=== PATIENT | female | born 1970 | race Caucasian/White ===

== ENCOUNTER 2016-11-09 06:50 | Inpatient (IN) | payer OTHER ==
[2016-11-09] MEDS ORDERED: SODIUM CHLORIDE 3,000 ML IV STA (06:53)
--- NOTE | 2016-11-09 07:05 | PDOC ---
Attending Attestation - Resident Resident Name: Hai Guerrero - ED Attending Attestation I have performed the following: I have examined & evaluated the patient, The case was reviewed & discussed with the resident, I agree w/resident's findings & plan, Exceptions are as noted - HPI HPI: 11/09/16 07:03 The patient is a 46-year-old female with a significant past medical history of type 1 diabetes (multiple admissions for DKA secondary to medical noncompliance) , chronic back pain secondary to lumbar disc disease (on opiate analgesics), cigarette smoking, who presents to the emergency department complaining of generalized weakness, dry cough, nausea and vomiting, for the past several days. She told EMS that she has not taken her insulin for almost a week. She states that she "took pain pills" before she came here secondary to her chronic back pain. She reports that she took 2 tablets, but is unable to tell me the name of them. 11/09/16 07:39 - Physicial Exam PE: 11/09/16 07:04 Patient is lethargic, but responds to verbal stimuli and answers questions appropriately She follows commands Vitals noted including hypothermia, tachycardia, tachypnea Mucous membranes are dry Abdomen is soft and nontender Lungs with RML crackles Extremities are warm and well perfused 11/09/16 07:15 11/09/16 07:22 Chest x-ray noted with significant infiltrative changes in the right mid and right upper lung mclaughlin 11/09/16 07:26 11/09/16 08:03 11/09/16 08:54 - Critical Care Time Total Critical Care Time: 90 Critical Care Statement: The care of this patient involved high complexity decision making to prevent further life threatening deterioration of the patient 's condition and/or to evalute & treat vital organ system(s) failure or risk of failure. - Medical Decision Making 11/09/16 07:04 The patient is ill-appearing and in moderate respiratory distress I suspect diabetic ketoacidosis Monitor shows an irregulary irregular tachycardia with P waves I suspect tachypnea is respiratory compensation for a severe metabolic acidosis I suspect tachycardia is secondary to severe volume depletion She does have 3 SIRS criteria She has been coughing and had RML crackles on exam Will initiate sepsis order set Will begin aggressive volume repletion Will not administer insulin until potassium level returns as I suspect she will be relatively hypokalemic 11/09/16 07:15 EKG noted: sinus tachycardia with frequent PACs, inverted T waves in leads 3 and AVF, peaked T waves in V2-V4, no ST changes, QTc is prolonged EKG changes are not classic for hyperkalemia though she does have peaked T waves I continue to suspect hypokalemia and will not yet begin insulin therapy 11/09/16 07:24 CXR noted, consistent with pneumonia She meets diagnostic criteria for severe sepsis given mental status changes Will treat with Ceftriaxone, Doxycycline for community acquired coverage, avoiding macrolides and fluoroquinolones secondary to the QTc prolongation 11/09/16 07:27 I have requested expedited lab transfer to [facility] 11/09/16 07:48 The patient has received 1 L of IV fluid Labs are pending Mental status is improved Tachypnea is unchanged She is slightly more tachycardic Nurses have been unable to place a second IV Will place central venous catheter The patient refuses placement in the internal jugular vein or subclavian vein She consents to placement in the femoral vein 11/09/16 07:55 Lab at [facility] has not yet received specimen They are aware that we need stat results Femoral line placed in the right femoral vein Vein cannulated on first attempt 11/09/16 08:09 [facility] lab has received specimen and will run it stat Admitting hospitalist (Dr. Camacho) accepts the patient pending lab results I have paged the simulation software engineer She is slightly more responsive but remains very tachycardic 11/09/16 08:16 ABG noted With pH greater than 6.9 will not give bicarbonate unless she is in GIANCARLO with low serum bicarbonate K pending 11/09/16 08:23 She remains tachycardic in the 170s-180s It looks like sinus tachycardia on the monitor Will repeat EKG She has received 2L of NS Will administer a third K pending I called the chemistry lab at [facility] They will expedite the chemistry specimen and understand the need for STAT results 11/09/16 08:27 Repeat EKG with sinus tachycardia 11/09/16 08:36 Per chemistry lab, specimen is hemolyzed They WILL run lactic acid Sending new specimen to [facility] lab STAT I called the lab and asked them to expedite the specimen I remain concerned for possible hypokalemia and will therefore wait for K before beginning insulin 3rd liter of NS running 11/09/16 08:45 I called the chemistry lab at [facility] Lactic acid pending They confirm that it is running 11/09/16 08:50 CBC noted with possible cold agglutins Doxycycline should cover mycoplasma species Chemistries remain pending She is less lethagic She is slightly less tachycardic She is making urine Will continue to await K before beginning insulin therapy 11/09/16 08:54 11/09/16 09:07 Chemistries remain pending Lactic acid remains pending Both the [facility] and [facility] labs are aware of the need to expedite the results The patient is clinically improved 11/09/16 09:15 Lactic acid of 6.4 noted Chemistries pending The patient's oxygen saturation is in the mid 80s Will apply Ventimask She may require intubation Clinical impression: Diabetic ketoacidosis Severe sepsis Lactic acidosis Hypoxemia respiratory failure Prolonged QT Case discussed in detail with admitting provider including history, physical exam and ancillary studies. Admitting physician has assumed care for the patient, will follow all pending diagnostics and will complete the evaluation and treatment. 11/09/16 09:22 Preliminary chemistries noted including Hyponatremia, which I presume is largely dilutional Glucose pending Potassium 5.8 Creatinine 3.3 Bicarb pending Gap pending Will administer 10 units IV Regular Insulin as a bolus, given the extent of her illness Will then begin insolent drip at 0.1 units per kilogram per hour Oxygen saturations are now in the mid 70s Plan is adequate She is in hypoxemic respiratory failure Will intubate 11/09/16 09:37 Patient was intubated using rapid sequence intubation protocol Etomidate 20 mg, rocuronium 50 mg Succinylcholine was avoided secondary to her hyperkalemia We are consciously hyperventilating her postintubation to provide adequate respiratory compensation for her severe metabolic acidosis Will repeat ABG in 30 minutes I requested stat transfer to the [facility] ICU 11/09/16 09:38 11/09/16 09:40 11/09/16 09:45 She is tolerating the vent well Insulin drip hanging Versed drip hanging IVF running Repeat CXR at bedside I anticipate obtaining an ABG 30 minutes post-intubation to ensure adequate ventilation / respiratory compensation It will have to go to [facility] for development WBC still pending I have asked the hematology lab to expedite the results Bicarb, anion gap and glucose pending I have asked the lab to expedite the results 11/09/16 09:53 Glucose of 1135 noted Corrected Na is 143 Bicarbonate less than 5 Anion Gap 35, adjusted for hypoalbiminemia it is approximately 37.5 Using a serume bicarbonate of 5 and an anion gap of 37.5 Delta delta is 32.5, indicating a concurrent metabolic alkalosis I presume this is a combination of contraction alkalosis plus vomiting with H loss Maradiaga formula projects a corrected C02 of 13.5-17.5 She has a concurrent respiratory acidosis I presume this is secondary to pneumonia, perhaps with a component of hypoventillation from opiate use She has a triple acid base disorder Primary and gap acidosis (mixed diabetic ketoacidosis, lactic acidosis, uremia) Metabolic alkalosis (volume depletion, vomiting) Respiratory acidosis (pneumonia, hypoventilation secondary to opiate use) Admitting physician has assumed care for the patient, will follow all pending diagnostics and will complete the evaluation and treatment. 11/09/16 10:03 Chest x-ray emergency Department interpretation: Endotracheal tube tip at aortic arch As compared to prior chest x-ray, there is evidence of diffuse interstitial infiltrates, with a right sided predominance This could be consistent with multi lobar pneumonia, pulmonary vascular congestion, ARDS She will require further evaluation further evaluation with TTE to exclude RV dysfunction Will add BNP She should get Vanco Clinical impression: Diabetic ketoacidosis Severe sepsis Community acquired pneumonia (multilobar) Possible early ARDS Anion gap acidosis (mixed diabetic ketoacidosis, lactic acidosis, uremic acidosis) Metabolic alkalosis (volume depletion, vomiting) Respiratory acidosis (pneumonia, hypoventilation secondary to opiate use) Hypoxemic respiratory failure Prolonged QT GIANCARLO Case discussed in detail with admitting provider including history, physical exam and ancillary studies. 11/09/16 10:18 EMS is at the bedisde Will administer Versed 5mg IV now to ensure sedation during transport Dosing with Vancomycin 1gm given multilobar pneumonia in the setting of severe illness ABG was drawn Repeating chemistries now Repeat lactic acid pending She is making urine with 1500ml in the perez bag WBC reported -- 28.8 with 23% bands 11/09/16 10:23 11/09/16 10:28 11/09/16 10:28 Discharge Disposition - Diagnosis DKA (diabetic ketoacidoses) - Discharge Dispostion Condition at time of disposition: Guarded Admit: Yes - Referrals Referrals: Pa Heard MD [Primary Care Provider] - Procedures - Central Line Central Line Lumen: triple Central Line Position: femoral (R) Complications: none Post Central Line Insertion: sutured, good blood return - Intubation Time of Intubation: 09:30 Blade used: Mac Tube Size (Fr): 7.5 Medications: Etomidate, Rocuronium Tube position @ lip (cm): 21 Tube position confirmed by: Direct visualization, CO2 detector, Chest x-ray, Breath sounds Breath Sounds after Intubation: equal Intubation Complications: no complications Post Intubation Xray: Yes
[2016-11-09] MEDS ORDERED: DOXYCYCLINE INJECTION 100 MG in DEXTROSE 5%-WATER - 100 ML IVPB ONE (07:21)
[2016-11-09] MEDS ORDERED: CEFTRIAXONE 1 GM in DEXTROSE 5%-WATER - 50 ML IVPB ONE (07:21)
[2016-11-09 07:25] VITALS: BMI 19.7
[2016-11-09 08:13] LABS: VENOUS BLOOD GAS HCO3 4.2 meq/L (19-25); VENOUS PH 6.94 (7.32-7.42)
[2016-11-09] MEDS ORDERED: SODIUM CHLORIDE 1,000 ML IV STA (08:29)
--- NOTE | 2016-11-09 08:39 | PDOC ---
History of Present Illness - General Chief Complaint: Blood Sugar Problem Stated Complaint: NAUSEA/VOMITING Time Seen by Provider: 11/09/16 06:53 History Source: Patient Exam Limitations: Clinical Condition - History of Present Illness Initial Comments: 46 y/o F w/ PMH of IDDM with multiple admissions for DKA from non-compliance, back pain with opiate use for pain relief, smoker presents to ER with c/o weakness, nausea, vomiting, and cough for last few days. According to EMS pt has not been complaint with her insulin use for approximately 1 week. Pt has altered mental status at this time and further history is difficult to obtain. Past History - Past Medical History Allergies/Adverse Reactions: Allergies Allergy/AdvReac Type Severity Reaction Status Date / Time No Known Allergies Allergy Verified 03/26/15 16:45 Home Medications: Ambulatory Orders Morphine Sulfate [Ms Contin] 120 mg PO BID 06/20/15 Oxycodone HCl/Acetaminophen [Percocet 10-325 mg Tablet] 1 - 2 tab PO Q6H Insulin (Levemir) [Levemir Vial] 20 unit SQ HS #30 ml 12/07/15 Insulin Sliding Scale [Novolog Vial Sliding Scale -] See Protocol SQ AC 30 Days 12/07/15 Insulin Sliding Scale [Novolog Vial Sliding Scale -] See Protocol SQ AC 30 Days 12/07/15 Metoclopramide HCl [Reglan] 10 mg PO TID PRN #90 tablet 12/07/15 Diabetes: Yes (TYPE I) GI Disorders: Yes (GASTROPARESIS) Suicide Attempt (Hx): No - Surgical History Cholecystectomy: Yes (AGE 19) - Immunization History Td Vaccination: Yes Immunization Up to Date: Yes - Psycho/Social/Smoking Cessation Hx Anxiety: No Suicidal Ideation: No Smoking Status: Yes Smoking History: Unknown if ever smoked Years of Tobacco Use: 15 Have you smoked in the past 12 months: Yes Number of Cigarettes Smoked Daily: 20 Information on smoking cessation initiated: No 'Breaking Loose' booklet given: 12/03/15 Hx Alcohol Use: No Drug/Substance Use Hx: Yes Substance Use Type: Prescribed Hx Substance Use Treatment: No Review of Systems - Review of Systems Able to Perform ROS?: No (Pt w/AMS) *Physical Exam - Vital Signs Last Vital Signs Temp Pulse Resp BP Pulse Ox 95.4 F L 169 H 27 H 100/80 89 L 11/09/16 07:20 11/09/16 08:19 11/09/16 08:19 11/09/16 08:19 11/09/16 08:03 - Physical Exam Comments: GENERAL: Well developed, well nourished. Pt with respiratory distress and altered mental status. HEENT: Sluggish response to constriction of pupils with direct light. Normocephalic, atraumatic. Sclera are non-icteric. Moist mucous membranes. NECK: No lymphadenopathy. CARDIOVASCULAR: Irregularly irregular, tachycardic. No murmurs, rubs, or gallops. PULMONARY: Tachypneic, labored, kussmaul breathing. CTA anteriorly. ABDOMINAL: Hypoactive bowel sounds. Soft. Non-distended. No rebound or guarding. No organomegaly. MUSCULOSKELETAL: No bony deformities. EXTREMITIES: No edema. No calf tenderness. SKIN: No rashes. No jaundice. NEUROLOGICAL: Altered mental status, obtunded. Difficulty with speaking due to mental status. PSYCHIATRIC: Altered mental status. Heart Score/ECG Review - Bailey Comment: 11/09/16 07:25 EKG: Sinus tachy with PACs. No ST changes noted. Prolonged QTc 11/09/16 08:45 EKG: Sinus tachy with PACs. No ST changes noted again. Prolonged QTc. ED Treatment Course - LABORATORY CBC & Chemistry Diagram: 11/09/16 06:54 11/09/16 08:51 - ADDITIONAL ORDERS Additional order review: Laboratory Results 11/09/16 06:54 VBG pH 6.94 L* D POC VBG pCO2 20.6 L D POC VBG pO2 53.7 H Mixed VBG HCO3 4.2 L* - Medications Given in the ED: ED Medications Discontinued Medications Generic Name Dose Route Start Last Admin Trade Name Freq PRN Reason Stop Dose Admin Ceftriaxone Sodium 1 gm/ 50 mls @ 100 mls/hr 11/09/16 07:21 11/09/16 07:55 Dextrose IVPB 11/09/16 07:50 100 mls/hr ONCE ONE Administration Doxycycline Hyclate 100 mg/ 100 mls @ 100 mls/hr 11/09/16 07:21 11/09/16 08:16 Dextrose IVPB 11/09/16 08:20 100 mls/hr ONCE ONE Administration Medical Decision Making - Medical Decision Making Pt likely with to have DKA due to non-compliance with insulin therapy. EKG shows sinus tachy with PACs and no ST changes noted. CXR shows R sided infiltrate. Labs sent but were hemolyzed on the way to [facility]. Will redraw, awaiting lab results. Pt fluid bolused with some mental status improvement. Pt to also receive ceftriaxone and doxy for CAP with QTc prolongation. Central line placed through femoral and pt continues to be tachy. Pt to be admitted to ICU. Hospitalist paged and accepted for admission. Twister Tender Paper paged and accepted for ICU. Pt remains tachypneic and will require intubation. Pt intubated. Pt so far has received 3L fluids. Sedated w/versed and intubated on ventilator. 11/09/16 10:20 Repeat CXR s/p intubation shows tip of ET tube at level of aortic arch. Worsening of infiltrates on B/L lungs. Vanco added. 11/09/16 10:29 WBC back at 28.8 *DC/Admit/Observation/Transfer Diagnosis at time of Disposition: DKA (diabetic ketoacidoses) - Discharge Dispostion Condition at time of disposition: Guarded - Referrals Referrals: Pa Heard MD [Primary Care Provider] - - Patient Instructions - Post Discharge Activity
[2016-11-09 08:58] LABS: ACTIVATED PTT 26.6 SECONDS (26.9-34.4); INR 1.07 (0.82-1.09); PROTHROMBIN TIME (PATIENT) 11.8 SEC (9.98-11.88)
[2016-11-09 09:14] LABS: COCKROFT - GAULT 17.3485; CREATININE 3.3 mg/dl (0.6-1.3)
[2016-11-09 09:15] LABS: MCHC 27.9 g/dl (32.0-36.0); MEAN CELL VOLUME 111.2 fl (80-96); MEAN PLT VOLUME 9.4 fl (7.5-11.1); PLATELET COUNT 367 K/MM3 (134-434); RDW 15.6 % (11.6-15.6)
[2016-11-09 09:16] LABS: ALBUMIN 2.8 g/dl (3.5-5.0); ALK PHOS 111 U/L (32-92); MAGNESIUM 2.1 mg/dL (1.8-2.4); SGOT/AST 85 U/L (10-42); SGPT/ALT 20 U/L (10-40)
[2016-11-09 09:18] LABS: CPK(DFH) 118 IU/L (26-140)
[2016-11-09] MEDS ORDERED: INSULIN REGULAR HUMAN 100 UNITS/ML *VIAL IV ONE (09:20)
[2016-11-09] MEDS ORDERED: ETOMIDATE 20 MG/10 ML AMPUL IVPUSH ONE (09:23)
[2016-11-09] MEDS ORDERED: ROCURONIUM BROMIDE 50 MG/5 ML VIAL IVPUSH ONE (09:23)
[2016-11-09] MEDS ORDERED: INSULIN REGULAR HUMAN 100 UNITS/ML *VIAL ONE ×2 (09:24→09:44)
[2016-11-09 09:25] LABS: TROPONIN I (DFP) < 0.03 ng/ml (0.03-0.50)
[2016-11-09] MEDS ORDERED: ROCURONIUM BROMIDE 50 MG/5 ML VIAL ONE (09:26)
[2016-11-09] MEDS ORDERED: ETOMIDATE 40 MG/20 ML VIAL IVPUSH ONE (09:28)
[2016-11-09 09:35] LABS: ACETONE SERUM POSITIVE (NEGATIVE)
[2016-11-09] MEDS ORDERED: PROPOFOL 0 ML ONE (09:36)
[2016-11-09] MEDS ORDERED: MIDAZOLAM HCL 2 MG/2 ML SINGLE DOSE VIAL ONE ×2 (09:37→10:32)
[2016-11-09 09:52] LABS: ANION GAP 35 (8-16); CO2 < 5 mmol/L (22-28)
[2016-11-09 09:54] LABS: GLUCOSE,RANDOM 1135 mg/dl (74-106); PHOSPHOROUS 10.5 mg/dl (2.5-4.6)
[2016-11-09] MEDS: MIDAZOLAM 100 MG in SODIUM CHLORIDE 100 ML IVPB SCH ×2 (09:54→11:50)
[2016-11-09] MEDS: INSULIN REGULAR 100 UNITS in SODIUM CHLORIDE 99 ML IVPB SCH (10:00)
[2016-11-09] MEDS ORDERED: MIDAZOLAM HCL 5 MG/1 ML Single Dose Vial IVPUSH ONE (10:13)
[2016-11-09] MEDS ORDERED: VANCOMYCIN 1,000 MG in DEXTROSE 5%-WATER - 250 ML IVPB ONE (10:17)
[2016-11-09 10:22] LABS: URINE MARIJUANA THC POSITIVE ng/ml (CUTOFF=50)
[2016-11-09 10:23] LABS: WHITE BLOOD COUNT 28.8 K/mm3 (4.0-10.0)
[2016-11-09 10:24] LABS: PLATELET ESTIMATE ADEQUATE (NORMAL)
[2016-11-09] MEDS ORDERED: VANCOMYCIN 1,000 MG VIAL (RESTRICTED TO ID ONLY) ONE (10:25)
[2016-11-09 11:08] LABS: COCKROFT - GAULT 20.451; CREATININE 2.8 mg/dl (0.6-1.3)
[2016-11-09 11:23] LABS: ARTERIAL BLD GAS O2 SATURATION 91.6 % (90-98.9); ARTERIAL BLOOD GAS BASE EXCESS -28.4 meq/l (-2-2); LPM/O2% 100; MECH. VENT. 7200; PT. ON O2? YES; TYPE OF O2 MEC.VENT; VENT RATE 30; VT/PRESS 500
[2016-11-09 11:25] LABS: CALCIUM 6.3 mg/dl (8.4-10.2)
[2016-11-09 11:25] LABS: ARTERIAL BLOOD GAS pH 6.85 (7.35-7.45)
[2016-11-09 11:26] LABS: ARTERIAL BLOOD GAS HCO3 4.6 meq/L (22-26); ARTERIAL BLOOD GAS PO2 107 mmHg (80-100)
[2016-11-09] MEDS ORDERED: SODIUM BICARBONATE 8.4% - 100 ML ONE (11:31)
[2016-11-09] MEDS ORDERED: SODIUM BICARBONATE 8.4% 50 MEQ/50 ML VIAL IV ONE (11:46)
[2016-11-09] MEDS ORDERED: ROCURONIUM BROMIDE 50 MG/5 ML VIAL IV ONE (11:47)
[2016-11-09 12:00] LABS: ARTERIAL BLOOD GAS BASE EXCESS -20.8 meq/l (-2-2)
[2016-11-09] MEDS: SODIUM CHLORIDE 1,000 ML IV SCH (12:00)
[2016-11-09 12:01] LABS: ALLENS TEST POSITIVE
[2016-11-09 12:02] LABS: ART PUNCT SITE LEFT RADIAL; LPM/O2% 70%; MECH. VENT. ESPRIT; PT. ON O2? YES; TYPE OF O2 MEC.VENT; VENT RATE 30; VT/PRESS 500
[2016-11-09 12:03] LABS: ARTERIAL BLOOD GAS HCO3 9.2 meq/L (22-26)
[2016-11-09 12:04] LABS: ARTERIAL BLOOD GAS pH 7.03 (7.35-7.45)
[2016-11-09 12:32] LABS: BASOPHIL 0.4 % (0-2.0); EOSINOPHIL 0.2 % (0-4.5); MCH 31.3 pg (25.7-33.7); MCHC 31.7 g/dl (32.0-36.0); MEAN CELL VOLUME 98.5 fl (80-96); MEAN PLT VOLUME 8.3 fl (7.5-11.1); NEUTROPHILS 89.6 % (42.8-82.8); PLATELET COUNT 255 K/MM3 (134-434); RDW 14.4 % (11.6-15.6); WHITE BLOOD COUNT 21.7 K/mm3 (4.0-10.0)
[2016-11-09 12:54] LABS: COCKROFT - GAULT 24.8965; CREATININE 2.3 mg/dL (0.55-1.02)
[2016-11-09 12:57] LABS: TROPONIN I < 0.02 ng/ml (0.00-0.05)
[2016-11-09] MEDS: HEPARIN NA (PORCINE) 5,000 UNITS/ML 1ML VIAL SQ SCH ×2 (13:00→21:40)
[2016-11-09] MEDS ORDERED: PIPERACILLIN/TAZOB 4.5 GM/100 ML PRE-DOCKED IVPB ONE (13:45)
--- NOTE | 2016-11-09 13:51 | HP ---
CHIEF COMPLAINT: vomiting and cough for a few days PCP: Pa Heard HISTORY OF PRESENT ILLNESS: 46 y/o female with hx of IDDM, poor compliance with insulin, multiple admissions for DKA, gastroparesis. Patient presented to the [facility] ED this am with a chief complaint of a few days of nausea, vomiting and cough. She stated she had not been taking insulin for 1 week. She denied fever, and had no abdominal pain. She was somewhat lethargic and was found to be in severe DKA, mixed severe metabolic acidosis with positive ketones and positive lactate 6. Her glucose was greater than 1000. Chest xray was notable for right mid lung infiltrate/pnemonia. WBC was severely elevated. In the ED, she received volume resuscitation with 3.5 liters of normal saline, insulin bolus of 10 units with drip at 5 units per hour. She was started on ceftriaxone, doxycycline and vancomycin for pneumonia in the setting of critical illness. She developed progressive respiratory distress and was intubated with RSI regimen etomidate and rocuronium. CXR confirmed ETT in good position and further demonstrated marked progression of pulmonary infiltrates, now involving the right mid and upper lung mclaughlin along with the left mid lung field. She required 100% oxygen to maintain sats in the low 90's. On arrival to the MICU she was sedated on midazolam, continued insulin drip, adjusted from 5 to 6 units per hr (0.1 U/kg) still with some gasping motions and accessory muscle use, not responsive to sternal rub. pH on ABG just prior to transfer was worsening to 6.85. Patient was immediately paralyzed with Rocuronium to reduce muscle lactate production, 2 amps of IV bicarb given, RR 30 with 500 cc tidal volume to blow off CO2, PEEP increased to 7 with sats up to 100% and FiO2 reduced to 70% with sats in the high 90's. Patient was completing 4th liter of normal saline and saline continued at 150 ml per hour. Recent Travel: unknown (metabolic encephalopathy) PAST MEDICAL HISTORY: DM gastroparesis multiple admissions for DKA chronic back pain on opiates PAST SURGICAL HISTORY: none Social History: Smoking:positive Alcohol:unobtainable Drugs:hx of chronic prescribed opioids for back pain Family History: unknown Allergies No Known Allergies Allergy (Verified 03/26/15 16:45) HOME MEDICATIONS: Home Medications Medication Instructions Recorded Morphine Sulfate [Ms Contin] 120 mg PO BID 06/20/15 Oxycodone HCl/Acetaminophen 1 - 2 tab PO Q6H 06/20/15 [Percocet 10-325 mg Tablet] Insulin (Levemir) [Levemir Vial] 20 unit SQ HS #30 ml 12/07/15 Insulin Sliding Scale [Novolog See Protocol SQ AC 30 Days 12/07/15 Vial Sliding Scale -] Insulin Sliding Scale [Novolog See Protocol SQ AC 30 Days 12/07/15 Vial Sliding Scale -] Metoclopramide HCl [Reglan] 10 mg PO TID PRN #90 tablet 12/07/15 REVIEW OF SYSTEMS unobtainable due to critical illness I spoke with her father who is in [place], he is coming back to [place] now that he is aware of her critical illness PHYSICAL EXAMINATION Vital Signs - 24 hr 11/09/16 11:55 Respiratory 30 H Rate GENERAL: Intubated, sedated, on versed and fentanyl drip, got stat dose of rocuronium x1 HEAD: Normal with no signs of trauma. EYES: Pupils 3mm, equal, round and reactive to light, sclera anicteric, conjunctiva clear. EARS, NOSE, THROAT: Ears normal, nares patent, oropharynx clear without lesions. Membranes not dry. NECK: Normal range of motion, supple without lymphadenopathy, JVD, or masses. LUNGS: Breath sounds equal, some coarse crackles bilaterally. Positive accessory muscle use prior to rocuronium, now resolved. HEART: Tacchycardic. Regular rate and rhythm, normal S1 and S2 without murmur, rub or gallop. ABDOMEN: Soft, nontender, not distended, normoactive bowel sounds, no guarding, no rebound, no masses. No hepatomegaly or splenomegaly. MUSCULOSKELETAL: Normal range of motion at all joints. No bony deformities or tenderness. No CVA tenderness. UPPER EXTREMITIES: 2+ pulses, warm, well-perfused. No cyanosis. No clubbing. No peripheral edema. LOWER EXTREMITIES: 2+ pulses, warm, well-perfused. No calf tenderness. No peripheral edema. Cap refill in the toes is 3 seconds. NEUROLOGICAL: Sedated, transiently opened eyes and made eye contact prior to increasing the versed sedation and adding fentanyl and rocuronium x1. PSYCHIATRIC: sedated, not assessable, but was reportedly cooperative with mild lethargy on initial ED presentatin. SKIN: Warm, dry, normal turgor, no rashes or lesions noted. Laboratory Results - last 24 hr 11/09/16 11/09/16 11/09/16 06:54 06:54 06:54 WBC 28.8 H D RBC 4.09 Hgb 12.7 D Hct 45.5 H D MCV 111.2 H D MCHC 27.9 L RDW 15.6 Plt Count 367 D MPV 9.4 D Neutrophils % 71.0 Lymphocytes % 5.0 L D Monocytes % 0.0 L D Eosinophils % 0.0 D Basophils % 0.0 Band Neutrophils 23.0 H D Differential Comment Manual diff done Platelet Estimate Adequate Platelet Comment Mod large plts Macrocytosis 1+ INR 1.07 PTT (Actin FS) 26.6 L Anticoagulation Therapy Puncture Site ABG pH ABG pCO2 at Pt Temp ABG pO2 at Pt Temp ABG HCO3 ABG O2 Sat (Measured) ABG O2 Content ABG Base Excess Atul Test VBG pH 6.94 L* D POC VBG pCO2 20.6 L D POC VBG pO2 53.7 H Mixed VBG HCO3 4.2 L* O2 Delivery Device Oxygen Flow Rate Vent Mode Vent Rate Mechanical Rate PEEP Pressure Support Vent Sodium Potassium Chloride Carbon Dioxide Anion Gap BUN Creatinine Creat Clearance w eGFR Random Glucose Lactic Acid Calcium Phosphorus Magnesium Total Bilirubin AST ALT Alkaline Phosphatase Creatine Kinase Troponin I Total Protein Albumin Opiates Screen Methadone Screen Barbiturate Screen Phencyclidine Screen Ur Amphetamines Screen MDMA (Ecstasy) Screen Benzodiazepines Screen Cocaine Screen U Marijuana (THC) Screen Acetone, Qual 11/09/16 11/09/16 11/09/16 06:54 07:57 08:34 WBC RBC Hgb Hct MCV MCHC RDW Plt Count MPV Neutrophils % Lymphocytes % Monocytes % Eosinophils % Basophils % Band Neutrophils Differential Comment Platelet Estimate Platelet Comment Macrocytosis INR PTT (Actin FS) Anticoagulation Therapy Puncture Site ABG pH ABG pCO2 at Pt Temp ABG pO2 at Pt Temp ABG HCO3 ABG O2 Sat (Measured) ABG O2 Content ABG Base Excess Atul Test VBG pH POC VBG pCO2 POC VBG pO2 Mixed VBG HCO3 O2 Delivery Device Oxygen Flow Rate Vent Mode Vent Rate Mechanical Rate PEEP Pressure Support Vent Sodium Potassium Chloride Carbon Dioxide Anion Gap BUN Creatinine Creat Clearance w eGFR Random Glucose Lactic Acid 6.461 H* Calcium Phosphorus Magnesium Total Bilirubin AST ALT Alkaline Phosphatase Creatine Kinase 118 Troponin I < 0.03 L Total Protein Albumin Opiates Screen Positive Methadone Screen Negative Barbiturate Screen Negative Phencyclidine Screen Negative Ur Amphetamines Screen Negative MDMA (Ecstasy) Screen Negative Benzodiazepines Screen Negative Cocaine Screen Negative U Marijuana (THC) Screen Positive Acetone, Qual 11/09/16 11/09/16 11/09/16 08:51 08:51 10:23 WBC RBC Hgb Hct MCV MCHC RDW Plt Count MPV Neutrophils % Lymphocytes % Monocytes % Eosinophils % Basophils % Band Neutrophils Differential Comment Platelet Estimate Platelet Comment Macrocytosis INR PTT (Actin FS) Anticoagulation Therapy Puncture Site ABG pH ABG pCO2 at Pt Temp ABG pO2 at Pt Temp ABG HCO3 ABG O2 Sat (Measured) ABG O2 Content ABG Base Excess Atul Test VBG pH POC VBG pCO2 POC VBG pO2 Mixed VBG HCO3 O2 Delivery Device Oxygen Flow Rate Vent Mode Vent Rate Mechanical Rate PEEP Pressure Support Vent Sodium 118 L* D 126 L Potassium 5.8 H D 4.8 Chloride 78 L D 95 L D Carbon Dioxide < 5 L D 5 L Anion Gap 35 H 26 H BUN 62 H D 56 H Creatinine 3.3 H D 2.8 H Creat Clearance w eGFR 14.98 Random Glucose 1135 H* 1045 H* Lactic Acid 4.569 H* Calcium 7.0 L D 6.3 L* Phosphorus 10.5 H* D Magnesium 2.1 Total Bilirubin 3.0 H D AST 85 H D ALT 20 D Alkaline Phosphatase 111 H D Creatine Kinase Troponin I Total Protein 5.0 L D Albumin 2.8 L D Opiates Screen Methadone Screen Barbiturate Screen Phencyclidine Screen Ur Amphetamines Screen MDMA (Ecstasy) Screen Benzodiazepines Screen Cocaine Screen U Marijuana (THC) Screen Acetone, Qual Positive 11/09/16 11/09/16 11/09/16 10:46 11:50 12:00 WBC 21.7 H RBC 3.74 Hgb 11.7 Hct 36.8 D MCV 98.5 H MCHC 31.7 L RDW 14.4 Plt Count 255 D MPV 8.3 D Neutrophils % 89.6 H D Lymphocytes % 7.6 L D Monocytes % 2.2 L D Eosinophils % 0.2 D Basophils % 0.4 D Band Neutrophils Differential Comment Platelet Estimate Platelet Comment Macrocytosis INR PTT (Actin FS) Anticoagulation Therapy Y Puncture Site Md puncture Left radial ABG pH 6.85 L* 7.03 L* D ABG pCO2 at Pt Temp 28.0 L D 36.1 ABG pO2 at Pt Temp 107 H 82.0 D ABG HCO3 4.6 L* 9.2 L* ABG O2 Sat (Measured) 91.6 91.0 ABG O2 Content 14.8 L 14.6 L ABG Base Excess -28.4 L* -20.8 L* Atul Test Not applicable Positive VBG pH POC VBG pCO2 POC VBG pO2 Mixed VBG HCO3 O2 Delivery Device Mec.vent Mec.vent Oxygen Flow Rate 100 70% Vent Mode A/c A/c Vent Rate 30 30 Mechanical Rate 7200 Esprit PEEP 0.0 7.0 Pressure Support Vent 500 500 Sodium Potassium Chloride Carbon Dioxide Anion Gap BUN Creatinine Creat Clearance w eGFR Random Glucose Lactic Acid Calcium Phosphorus Magnesium Total Bilirubin AST ALT Alkaline Phosphatase Creatine Kinase Troponin I Total Protein Albumin Opiates Screen Methadone Screen Barbiturate Screen Phencyclidine Screen Ur Amphetamines Screen MDMA (Ecstasy) Screen Benzodiazepines Screen Cocaine Screen U Marijuana (THC) Screen Acetone, Qual Laboratory Results - last 24 hr 11/09/16 11/09/16 11:50 12:00 WBC 21.7 H RBC 3.74 Hgb 11.7 Hct 36.8 D MCV 98.5 H MCHC 31.7 L RDW 14.4 Plt Count 255 D MPV 8.3 D Neutrophils % 89.6 H D Lymphocytes % 7.6 L D Monocytes % 2.2 L D Eosinophils % 0.2 D Basophils % 0.4 D Puncture Site Left radial ABG pH 7.03 L* D ABG pCO2 at Pt Temp 36.1 ABG pO2 at Pt Temp 82.0 D ABG HCO3 9.2 L* ABG O2 Sat (Measured) 91.0 ABG O2 Content 14.6 L ABG Base Excess -20.8 L* Atul Test Positive O2 Delivery Device Mec.vent Oxygen Flow Rate 70% Vent Mode A/c Vent Rate 30 Mechanical Rate Esprit PEEP 7.0 Pressure Support Vent 500 ASSESSMENT/PLAN: 46 y/o woman presents with severe hyperosmolar state and DKA secondary to noncompliance with insulin as well as from sepsis and pneumonia with acute hypoxemic respiratory failure, severe ARDS. Critical Care consult Dr. Galicia is aware, at bedside in the ICU with me. CV: patient transiently hypotensive, likely severe volume depletion in the setting of vomiting and osmotic diuresis from hyperosmolar state. She is getting her 5th liter bolus, but hypoxemia is getting worse in the setting of volume resuscitation. Acidosis is a bit better after initially trending worse and this may be contributing. continue volume resuscitation may need pressors depending on course, would start with norepinephrine if needed Pulmonary: multilobar pneumonia, progressive pulmonary infiltrates, acute hypoxemic respiratory failure, severe Aa gradient, P/F ratio is currently 117 but trending worse, consistent with moderate to severe ARDS. [place] low tidal volume for 5' 6" is 350 ml at 6 ml/kg, however, given her severe metabolic acidosis I cannot get her to ideal tidal volume until her acidosis improves. Will continue PEEP as tolerated, did not tolerate PEEP 10 as she dropped her BP. Neuro: metablic encephalopathy in the setting of DKA and metabolic disarray along with hyperosmolar state. Intubated and sedated, requiring both versed at 4mg/h and fentanyl at 100ug/h to maintain adequate sedation, received rocuronium bolus for dysynchronous breathing in the setting of severe acidosis. Sedation increased and will reassess need for further paralysis once settled on increased sedation. Renal: good urine output, GIANCARLO with creatinine coming down now with volume resuscitation. HyperKalemia on initial labs now improving, continue to monitor q4h. ID: multilobar pneumonia with critical illness and hypoxemic respiratory failure continue antibiotics for increased risk of nosocomial pneumonia given frequent illness and hospitalization radha jewell vanco to continue vanco dosing at 1 gram q 12 h, as creatinine is coming down rapidly, reassess dosing regimen after next dose GI:NG tube for meds pecid for stress ulcer prophylaxis Heme: hemoconcentrated due to volume depletion Endocrine: hyperosmolar syndrome and DKA. Continue insulin drip at 6 U/hr, start dextrose D10 once glucose is less than 300, to continue insulin to treat acidosis. On FS q1h. Prophylaxis: SQ heparin pepcid Dispo: full code Patient is critically ill with multi-organ failure, I spent 125 minutes at the bedside stabilizing her. Problem List - Problem (1) DKA (diabetic ketoacidoses) Code(s): E13.10 - OTH DIABETES MELLITUS WITH KETOACIDOSIS WITHOUT COMA Qualifiers: Diabetes mellitus type: type 1 Diabetes mellitus complication detail: with coma Qualified Code(s): E10.11 - Type 1 diabetes mellitus with ketoacidosis with coma (2) Lactic acid acidosis Code(s): E87.2 - ACIDOSIS (3) Pneumonia Code(s): J18.9 - PNEUMONIA, UNSPECIFIED ORGANISM Qualifiers: Pneumonia type: due to unspecified organism Laterality: bilateral Lung location: upper lobe of lung Qualified Code(s): J18.9 - Pneumonia, unspecified organism (4) Respiratory failure with hypoxia Code(s): J96.91 - RESPIRATORY FAILURE, UNSPECIFIED WITH HYPOXIA Qualifiers: Chronicity: acute Qualified Code(s): J96.01 - Acute respiratory failure with hypoxia (5) Metabolic encephalopathy Code(s): G93.41 - METABOLIC ENCEPHALOPATHY (6) Acute renal failure Code(s): N17.9 - ACUTE KIDNEY FAILURE, UNSPECIFIED Qualifiers: Acute renal failure type: unspecified Qualified Code(s): N17.9 - Acute kidney failure, unspecified Visit type - Emergency Visit Emergency Visit: Yes ED Registration Date: 11/09/16 Care time: The patient presented to the Emergency Department on the above date and was hospitalized for further evaluation of their emergent condition. - New Patient This patient is new to me today: Yes Date on this admission: 11/09/16 - Critical Care Critical Care patient: Yes Total Critical Care Time (in minutes): 125 Critical Care Statement: The care of this patient involved high complexity decision making to prevent further life threatening deterioration of the patient 's condition and/or to evalute & treat vital organ system(s) failure or risk of failure.
[2016-11-09] MEDS: AZITHROMYCIN IVPB 250 ML IVPB SCH (14:00)
--- NOTE | 2016-11-09 14:08 | CONSULT ---
Consult Consult Specialty:: PULMONARY/CCM Referred by:: Dr. Vela Reason for Consultation:: DKA, respiratory failure - History of Present Illness History of Present Illness: 46yo female with h/o IDDM with poor compliance, diabetic gastroparesis, h/o DKA who presented to [facility] ER with nausea, vomiting and shortness of breath. Became lethargic in the ER, noted to be in severe DKA and subsequently intubated and transferred to the ICU. Currently unable to provide further history but CXR showing right sided infiltrates. Started on IVF resuscitation, insulin gtt, antibiotics. Sedated and briefly on paralytics for vent synchrony. - History Source History Provided By: Medical Record Limitations to Obtaining History: Clinical Condition - Past Medical History RESIDENT MANAGER: Yes: Migraine ...LMP: 04/14/13 Endocrine: Yes: Diabetes Mellitus Additional Medical History: dka in the past - Past Surgical History Past Surgical History: Yes: Cholecystectomy - Alcohol/Substance Use Hx Alcohol Use: No - Smoking History Smoking history: Unknown if ever smoked Have you smoked in the past 12 months: Yes Aproximately how many cigarettes per day: 20 Home Medications - Allergies Allergies/Adverse Reactions: Allergies Allergy/AdvReac Type Severity Reaction Status Date / Time No Known Allergies Allergy Verified 03/26/15 16:45 - Home Medications Home Medications: Ambulatory Orders Morphine Sulfate [Ms Contin] 120 mg PO BID 06/20/15 Oxycodone HCl/Acetaminophen [Percocet 10-325 mg Tablet] 1 - 2 tab PO Q6H Insulin (Levemir) [Levemir Vial] 20 unit SQ HS #30 ml 12/07/15 Insulin Sliding Scale [Novolog Vial Sliding Scale -] See Protocol SQ AC 30 Days 12/07/15 Insulin Sliding Scale [Novolog Vial Sliding Scale -] See Protocol SQ AC 30 Days 12/07/15 Metoclopramide HCl [Reglan] 10 mg PO TID PRN #90 tablet 12/07/15 Review of Systems Unable to obtain ROS, reason: pt intubated Physical Exam Vital Signs: Vital Signs Temperature 95.4 F L 11/09/16 07:20 Pulse Rate 179 H 11/09/16 10:45 Respiratory Rate 35 H 11/09/16 13:10 Blood Pressure 104/52 11/09/16 10:45 O2 Sat by Pulse Oximetry (%) 97 11/09/16 10:45 Constitutional: Yes: Other (intubated, sedated) Eyes: Yes: Conjunctiva Clear, EOM Intact HENT: Yes: Atraumatic, Normocephalic Neck: Yes: Supple, Trachea Midline Cardiovascular: Yes: Regular Rate and Rhythm Respiratory: Yes: Regular, Diminished (distant breath sounds) Gastrointestinal: Yes: Normal Bowel Sounds, Soft. No: Tenderness Edema: No Labs: CBC, BMP 11/09/16 12:00 11/09/16 12:00 Imaging - Results Chest X-ray: Report Reviewed, Image Reviewed (right sided infiltrates) Problem List - Problems (1) DKA (diabetic ketoacidoses) Code(s): E13.10 - OTH DIABETES MELLITUS WITH KETOACIDOSIS WITHOUT COMA Qualifiers: Diabetes mellitus type: type 1 Diabetes mellitus complication detail: with coma Qualified Code(s): E10.11 - Type 1 diabetes mellitus with ketoacidosis with coma (2) Metabolic encephalopathy Code(s): G93.41 - METABOLIC ENCEPHALOPATHY (3) Pneumonia Code(s): J18.9 - PNEUMONIA, UNSPECIFIED ORGANISM Qualifiers: Pneumonia type: due to unspecified organism Laterality: bilateral Lung location: upper lobe of lung Qualified Code(s): J18.9 - Pneumonia, unspecified organism (4) Respiratory failure with hypoxia Code(s): J96.91 - RESPIRATORY FAILURE, UNSPECIFIED WITH HYPOXIA Qualifiers: Chronicity: acute Qualified Code(s): J96.01 - Acute respiratory failure with hypoxia (5) Acute renal failure Code(s): N17.9 - ACUTE KIDNEY FAILURE, UNSPECIFIED Qualifiers: Acute renal failure type: unspecified Qualified Code(s): N17.9 - Acute kidney failure, unspecified (6) Diabetic gastroparesis associated with type 1 diabetes mellitus Code(s): E10.43 - TYPE 1 DIABETES W DIABETIC AUTONOMIC (POLY)NEUROPATHY K31.84 - GASTROPARESIS (7) Diabetic keto-acidosis Code(s): E13.10 - OTH DIABETES MELLITUS WITH KETOACIDOSIS WITHOUT COMA (8) High anion gap metabolic acidosis Code(s): E87.2 - ACIDOSIS (9) Lactic acid acidosis Code(s): E87.2 - ACIDOSIS (10) Renal failure (ARF), acute on chronic Code(s): N17.9 - ACUTE KIDNEY FAILURE, UNSPECIFIED N18.9 - CHRONIC KIDNEY DISEASE, UNSPECIFIED Assessment/Plan Acute Respiratory Failure Pneumonia ARDS Diabetic Ketoacidosis Severe Metabolic Acidosis Acute Kidney Injury Lactic Acidosis Noncompliance - aggressive IVF resuscitation - insulin gtt - close monitoring of lytes, BMP, BGM - when acid base disorder improved, will need to lower tidal volumes for lung protective strategies - continue antibiotics - f/u cultures - monitor urine output, creatinine - trend lactate - sedate for vent synchrony - taper Fio2 to keep Spo2 >90% - NPO - DVT/GI prophyalxis - ICU monitoring critical care time spent in reviewing chart, evaluating patient and formulating plan 35 min
[2016-11-09 14:17] LABS: URINE APPEARANCE CLEAR; URINE BILIRUBIN NEGATIVE (NEGATIVE); URINE COLOR STRAW; URINE GLUCOSE (UA) 3+ (NEGATIVE); URINE KETONE 2+ (NEGATIVE); URINE LEUK ESTERASE NEGATIVE (NEGATIVE); URINE NITRITE NEGATIVE (NEGATIVE); URINE UROBILINOGEN NEGATIVE E.U./dl (0.2-1.0)
[2016-11-09 14:27] LABS: URINE BLOOD 2+ (NEGATIVE); URINE PROTEIN 1+ (NEGATIVE)
[2016-11-09 14:28] LABS: URINE MUCUS RARE; URINE RBC 1 /hpf (0-3); URINE WBC 2 /hpf (3-5)
[2016-11-09] MEDS: FENTANYL INJECTION 500 MCG in DEXTROSE 5%-WATER - 90 ML IJ SCH ×3 (14:50→22:44)
[2016-11-09 15:15] LABS: URINE APPEARANCE CLEAR; URINE BILIRUBIN 1+ (NEGATIVE); URINE BLOOD TRACE (NEGATIVE); URINE COLOR YELLOW; URINE GLUCOSE (UA) 3+ (NEGATIVE); URINE KETONE 3+ (NEGATIVE)
[2016-11-09 15:16] LABS: URINE LEUK ESTERASE NEGATIVE (NEGATIVE); URINE NITRITE NEGATIVE (NEGATIVE); URINE PROTEIN 2+ (NEGATIVE); URINE UROBILINOGEN 0.2 E.U/dl (0.2-1.0)
[2016-11-09 15:47] LABS: URINE WBC 0-3 (3-5)
[2016-11-09] MEDS ORDERED: PNEUMOC 13-VAL CONJ-DIP CRM/PF 0.5 ML DISP.SYRIN IM ONE (16:17)
[2016-11-09 16:47] LABS: ALLENS TEST POSITIVE; ART PUNCT SITE RIGHT RADIAL; ARTERIAL BLD GAS O2 SATURATION 97.9 % (90-98.9); ARTERIAL BLOOD GAS BASE EXCESS -10.2 meq/l (-2-2); ARTERIAL BLOOD GAS HCO3 14.5 meq/L (22-26); ARTERIAL BLOOD GAS PO2 93.2 mmHg (80-100); LPM/O2% 70%; PT. ON O2? YES
[2016-11-09 16:48] LABS: ARTERIAL BLOOD GAS pH 7.32 (7.35-7.45); MECH. VENT. YES; TYPE OF O2 VENTILATOR; VENT RATE 34; VT/PRESS 500
[2016-11-09] MEDS: DEXTROSE 10%-WATER - 1,000 ML IV SCH (17:00)
[2016-11-09 17:18] LABS: COCKROFT - GAULT 30.141; CREATININE 1.9 mg/dL (0.55-1.02)
[2016-11-09 17:26] LABS: CALCIUM 6.1 mg/dL (8.5-10.1)
[2016-11-09] MEDS ORDERED: CALCIUM GLUCONATE 10% - 1,000 MG/10 ML VIAL ONE (17:43)
[2016-11-09] MEDS ORDERED: CALCIUM GLUCONATE 10% - 1,000 MG/10 ML VIAL IVPB ONE (19:30)
[2016-11-09] MEDS ORDERED: HEMOQUE TEST 1 EACH EACH ONE (20:07)
[2016-11-09] MEDS ORDERED: BENZOIN/ALOE VERA/STORAX/TOLU 58 ML BOTTLE ONE (20:29)
[2016-11-09 21:09] LABS: ALLENS TEST POSITIVE; ART PUNCT SITE RIGHT RADIAL; ARTERIAL BLD GAS O2 SATURATION 99.9 % (90-98.9); ARTERIAL BLOOD GAS BASE EXCESS -3.3 meq/l (-2-2); ARTERIAL BLOOD GAS pH 7.43 (7.35-7.45); PT. ON O2? YES
[2016-11-09 21:10] LABS: ARTERIAL BLOOD GAS HCO3 19.8 meq/L (22-26); LPM/O2% 60%; MECH. VENT. YES; TYPE OF O2 MECH VENT; VENT RATE 30; VT/PRESS 450
[2016-11-09] MEDS: CHLORHEXIDINE GLUCONATE 4% CLEANSER FOR DECOLONIZATION TP SCH (21:40)
[2016-11-09] MEDS: FAMOTIDINE 20 MG/50 ML IVPB 50 ML IVPB SCH (21:40)
[2016-11-09] MEDS: MUPIROCIN 2% TOPICAL OINTMENT FOR DECOLONIZATION NS SCH (21:42)
[2016-11-09 22:31] LABS: COCKROFT - GAULT 38.1735; CREATININE 1.5 mg/dL (0.55-1.02)
[2016-11-09 22:34] LABS: CALCIUM 6.3 mg/dL (8.5-10.1)
[2016-11-09] MEDS: KCL 10 MEQ IVPB 100 ML IVPB SCH (22:59)
[2016-11-10] MEDS: KCL 10 MEQ IVPB 100 ML IVPB SCH (00:40)
[2016-11-10] MEDS: FENTANYL INJECTION 500 MCG in DEXTROSE 5%-WATER - 90 ML IJ SCH ×7 (01:34→19:29)
[2016-11-10] MEDS: SODIUM CHLORIDE 1,000 ML IV SCH (02:33)
[2016-11-10] MEDS: DEXTROSE 10%-WATER - 1,000 ML IV SCH ×2 (03:34→19:30)
[2016-11-10] MEDS: MIDAZOLAM 100 MG in SODIUM CHLORIDE 100 ML IVPB SCH ×2 (04:35→10:42)
[2016-11-10 06:08] LABS: MCH 31.4 pg (25.7-33.7); MEAN CELL VOLUME 92.1 fl (80-96); RDW 14.1 % (11.6-15.6)
[2016-11-10 06:09] LABS: MEAN PLT VOLUME 8.2 fl (7.5-11.1); PLATELET COUNT 150 K/MM3 (134-434)
[2016-11-10 06:33] LABS: ALBUMIN 1.8 g/dl (3.4-5.0); MAGNESIUM 1.6 mg/dL (1.8-2.4)
[2016-11-10 06:41] LABS: BILIRUBIN,TOTAL 0.2 mg/dL (0.2-1.0); CREATININE 1.1 mg/dL (0.55-1.02); TOT PROT 3.8 g/dl (6.4-8.2)
[2016-11-10 06:51] LABS: CALCIUM 5.9 mg/dL (8.5-10.1); PHOSPHOROUS 0.6 mg/dL (2.5-4.9)
[2016-11-10] MEDS ORDERED: POTASSIUM PHOSPHATE 30 MM in DEXTROSE 5%-WATER - 250 ML IVPB ONE (06:59)
[2016-11-10] MEDS ORDERED: CALCIUM GLUCONATE 10% - 1,000 MG/10 ML VIAL IVPB ONE (07:10)
[2016-11-10 07:38] LABS: ARTERIAL BLOOD GAS BASE EXCESS -4.9 meq/l (-2-2); ARTERIAL BLOOD GAS HCO3 17.6 meq/L (22-26); ARTERIAL BLOOD GAS pH 7.45 (7.35-7.45)
[2016-11-10 07:39] LABS: ALLENS TEST POSITIVE; ART PUNCT SITE RIGHT RADIAL; LPM/O2% 60%; MECH. VENT. ESPRIT; PT'S TEMP 100.3; PT. ON O2? YES; TYPE OF O2 MEC.VENT; VENT RATE 30; VT/PRESS 450
[2016-11-10] MEDS ORDERED: MAGNESIUM SULF 50% (8.12 MEQ/2 ML-1 GM VIAL) IVPB ONE (09:30)
[2016-11-10] MEDS: HEPARIN NA (PORCINE) 5,000 UNITS/ML 1ML VIAL SQ SCH ×2 (10:41→22:08)
[2016-11-10] MEDS: MUPIROCIN 2% TOPICAL OINTMENT FOR DECOLONIZATION NS SCH ×2 (10:41→22:04)
[2016-11-10] MEDS: FAMOTIDINE 20 MG/50 ML IVPB 50 ML IVPB SCH ×2 (10:41→22:08)
[2016-11-10] MEDS: INSULIN REGULAR 100 UNITS in SODIUM CHLORIDE 99 ML IVPB SCH (10:42)
[2016-11-10] MEDS: AZITHROMYCIN IVPB 250 ML IVPB SCH (10:42)
--- NOTE | 2016-11-10 10:45 | PN ---
Progress Note (short form) - Note Progress Note: PULMONARY/CCM Pt seen and examined in the ICU. Remains intubated, sedated on insulin gtt. Febrile overnight. Anion gap closed, acidosis resolving. Last Vital Signs Temp Pulse Resp BP Pulse Ox 100.3 F H 84 16 108/67 100 11/10/16 06:00 11/10/16 06:00 11/10/16 09:25 11/10/16 06:00 11/09/16 21:00 Intake & Output 11/07/16 11/08/16 11/09/16 11/10/16 23:59 23:59 23:59 23:59 Intake Total 9681 3660.4 Output Total 3650 750 Balance 6031 2910.4 Weight 115 lb Gen: intubated, sedated Heart: RRR Lung: decreased breath sounds at the bases Abd: soft, nontender Ext: no edema CBC, BMP 11/10/16 05:30 11/10/16 05:30 Active Medications Chlorhexidine Gluconate (Hibiclens For Decolonization -) 1 applic TP HS [facility] Last Admin: 11/09/16 21:40 Dose: 1 applic Heparin Sodium (Porcine) (Heparin -) 5,000 unit SQ BID [facility] Last Admin: 11/09/16 21:40 Dose: 5,000 unit Insulin Human Regular 100 (units/ Sodium Chloride) 100 mls @ 5.21 mls/hr IVPB TITR [facility]; 0.1 UNITS/KG/HR PRN Reason: Protocol Last Titration: 11/09/16 22:22 Dose: 0.02 units/kg/hr Midazolam HCl 100 mg/ Sodium (Chloride) 100 mls @ 2 mls/hr IVPB TITR [facility]; 2 MG/ HR PRN Reason: Protocol Last Admin: 11/10/16 04:35 Dose: 6 mls/hr Sodium Chloride (Normal Saline -) 1,000 mls @ 150 mls/hr IV ASDIR [facility] Last Admin: 11/10/16 02:33 Dose: 150 mls/hr Azithromycin (Zithromax 500mg Ivpb (Pre-Docked)) 250 mls @ 250 mls/hr IVPB DAILY [facility] Last Admin: 11/09/16 14:00 Dose: 250 mls/hr Piperacillin Sod/Tazobactam (Sod 4.5 gm/ Dextrose) 100 mls @ 200 mls/hr IVPB Q6H-IV [facility] Stop: 11/10/16 12:29 Vancomycin HCl (Vancomycin (Pre-Docked)) 250 mls @ 250 mls/hr IVPB BID [facility] PRN Reason: Protocol Famotidine/Sodium Chloride (Pepcid 20 Mg Premixed Ivpb -) 50 mls @ 100 mls/hr IVPB BID [facility] Last Admin: 11/09/16 21:40 Dose: 100 mls/hr Fentanyl 500 mcg/ Dextrose 100 mls @ 20 mls/hr IJ TITR [facility] PRN Reason: 100 MCG/HR Last Admin: 11/10/16 05:36 Dose: 45 mls/hr Dextrose (D10w -) 1,000 mls @ 100 mls/hr IV ASDIR [facility] Last Admin: 11/10/16 03:34 Dose: 100 mls/hr Potassium Phosphate 30 mm/ (Dextrose) 260 mls @ 62.5 mls/hr IVPB ONCE ONE Stop: 11/10/16 11:08 Last Admin: 11/10/16 08:37 Dose: 62.5 mls/hr Mupirocin (Bactroban Ointment (For Decolonization) -) 1 applic NS BID [facility] Stop: 11/14/16 21:59 Last Admin: 11/09/16 21:42 Dose: 1 applic Pneumococcal 13-Valent Conj Vacc (Prevnar 13 Syringe -) 0.5 ml IM .ONCE ONE Stop: 11/09/16 16:18 Potassium Chloride (Potassium Chloride Oral Liquid) 40 meq PO ONCE ONE Stop: 11/10/16 09:06 A/P Acute Respiratory Failure Pneumonia ARDS Diabetic Ketoacidosis Severe Metabolic Acidosis Acute Kidney Injury Lactic Acidosis Noncompliance - can start long acting insulin or coverage for now - d/c insulin gtt - can decrease IVF rate - adjusted vent settings - continue antibiotics - f/u cultures - monitor urine output, creatinine - replete lytes - trend lactate - sedate for vent synchrony - lighten sedation in AM to assess mental status - start spontaneous breathing trials when mental status improved - NPO - DVT/GI prophyalxis - continue ICU monitoring critical care time spent in reviewing chart, evaluating patient and formulating plan 35 min Problem List - Problems (1) DKA (diabetic ketoacidoses) Code(s): E13.10 - OTH DIABETES MELLITUS WITH KETOACIDOSIS WITHOUT COMA Qualifiers: Diabetes mellitus type: type 1 Diabetes mellitus complication detail: with coma Qualified Code(s): E10.11 - Type 1 diabetes mellitus with ketoacidosis with coma (2) Metabolic encephalopathy Code(s): G93.41 - METABOLIC ENCEPHALOPATHY (3) Pneumonia Code(s): J18.9 - PNEUMONIA, UNSPECIFIED ORGANISM Qualifiers: Pneumonia type: due to unspecified organism Laterality: bilateral Lung location: upper lobe of lung Qualified Code(s): J18.9 - Pneumonia, unspecified organism (4) Respiratory failure with hypoxia Code(s): J96.91 - RESPIRATORY FAILURE, UNSPECIFIED WITH HYPOXIA Qualifiers: Chronicity: acute Qualified Code(s): J96.01 - Acute respiratory failure with hypoxia (5) Acute renal failure Code(s): N17.9 - ACUTE KIDNEY FAILURE, UNSPECIFIED Qualifiers: Acute renal failure type: unspecified Qualified Code(s): N17.9 - Acute kidney failure, unspecified (6) Diabetic gastroparesis associated with type 1 diabetes mellitus Code(s): E10.43 - TYPE 1 DIABETES W DIABETIC AUTONOMIC (POLY)NEUROPATHY K31.84 - GASTROPARESIS (7) Diabetic keto-acidosis Code(s): E13.10 - OTH DIABETES MELLITUS WITH KETOACIDOSIS WITHOUT COMA (8) High anion gap metabolic acidosis Code(s): E87.2 - ACIDOSIS (9) Lactic acid acidosis Code(s): E87.2 - ACIDOSIS (10) Renal failure (ARF), acute on chronic Code(s): N17.9 - ACUTE KIDNEY FAILURE, UNSPECIFIED N18.9 - CHRONIC KIDNEY DISEASE, UNSPECIFIED
[2016-11-10] MEDS ORDERED: SODIUM CHLORIDE 1,000 ML IV SCH ×2 (10:46→19:15)
[2016-11-10] MEDS ORDERED: INSULIN DETEMIR 100 UNITS/ML MDV SQ ONE ×2 (10:46→11:15)
[2016-11-10] MEDS ORDERED: POTASSIUM CHLORIDE ORAL LIQUID 20 MEQ/15 ML PO ONE (11:00)
[2016-11-10] MEDS ORDERED: VANCOMYCIN 1 GRAM (PRE-DOCKED) 250 ML IVPB ONE (11:30)
[2016-11-10] MEDS: PIPERACILLIN/TAZOB 3.375 GM/50 ML PRE-DOCKED IVPB SCH ×2 (12:00→18:13)
[2016-11-10] MEDS: INSULIN SLIDING SCALE (NOVOLOG) 1 VIAL SQ SCH ×4 (14:00→22:06)
--- NOTE | 2016-11-10 14:16 | PN ---
Physical Exam: SUBJECTIVE: Patient seen and examined. Sedated, intubated. Fentanyl 200mcg, Versed 6units. Febrile this afternoon Events: - Insulin gtt off, levemir 10units given - No further rocuronium required overnight OBJECTIVE: Vital Signs Period Temp Pulse Resp BP Sys/Rapp Pulse Ox Last 24 Hr 98 F-100.3 F 81-118 16-34 84-124/59-71 99-100 MV: AC/16/360/40/7 Lines: R femoral central line placed 11/09 22gauge, L hand PE Neuro: sedated, vented Pulm: diminished bases with rhonchi CV: s1 s2 rrr no mrg Abd: s nd nt +bs : perez Ext: warm, b/l hand edema, no le edema +DP pulses Skin: in tact, tattoos CBCD WBC 10.0 K/mm3 (4.0-10.0) D 11/10/16 05:30 RBC 2.68 M/mm3 (3.60-5.2) L D 11/10/16 05:30 Hgb 8.4 GM/dL (10.7-15.3) L D 11/10/16 05:30 Hct 24.7 % (32.4-45.2) L D 11/10/16 05:30 MCV 92.1 fl (80-96) 11/10/16 05:30 MCHC 34.0 g/dl (32.0-36.0) 11/10/16 05:30 RDW 14.1 % (11.6-15.6) 11/10/16 05:30 Plt Count 150 K/MM3 (134-434) D 11/10/16 05:30 MPV 8.2 fl (7.5-11.1) 11/10/16 05:30 CMP Sodium 145 mmol/L (136-145) 11/10/16 05:30 Potassium 3.0 mmol/L (3.5-5.1) L 11/10/16 05:30 Chloride 113 mmol/L (98-107) H 11/10/16 05:30 Carbon Dioxide 21 mmol/L (21-32) 11/10/16 05:30 Anion Gap 11 (8-16) 11/10/16 05:30 BUN 26 mg/dL (7-18) H D 11/10/16 05:30 Creatinine 1.1 mg/dL (0.55-1.02) H D 11/10/16 05:30 Creat Clearance w eGFR 53.24 (>60) 11/10/16 05:30 Calcium 5.9 mg/dL (8.5-10.1) L* 11/10/16 05:30 Total Bilirubin 0.2 mg/dL (0.2-1.0) D 11/10/16 05:30 AST 54 U/L (15-37) H D 11/10/16 05:30 ALT 18 U/L (12-78) D 11/10/16 05:30 Alkaline Phosphatase 80 U/L (45-117) D 11/10/16 05:30 Total Protein 3.8 g/dl (6.4-8.2) L D 11/10/16 05:30 Albumin 1.8 g/dl (3.4-5.0) L D 11/10/16 05:30 11/09/16 11/09/16 11/09/16 06:54 07:57 08:51 INR 1.07 PTT (Actin FS) 26.6 L Anticoagulation Therapy Hemoglobin A1c % Lactic Acid Calcium Phosphorus Magnesium Urine HCG, Qual Opiates Screen Positive U Marijuana (THC) Screen Positive Acetone, Qual Positive 11/09/16 11/09/16 11/10/16 10:46 13:00 05:30 INR PTT (Actin FS) Anticoagulation Therapy Y Hemoglobin A1c % Lactic Acid Calcium 5.9 L* Phosphorus 0.6 L* Magnesium 1.6 L D Urine HCG, Qual Negative Opiates Screen U Marijuana (THC) Screen Acetone, Qual 11/10/16 11/10/16 05:30 09:00 INR PTT (Actin FS) Anticoagulation Therapy Hemoglobin A1c % 9.9 H D Lactic Acid 2.935 H* Calcium Phosphorus Magnesium Urine HCG, Qual Opiates Screen U Marijuana (THC) Screen Acetone, Qual Active Medications Generic Name Dose Route Start Last Admin Trade Name Freq PRN Reason Stop Dose Admin Chlorhexidine Gluconate 1 applic 11/09/16 22:00 11/09/16 21:40 Hibiclens For Decolonization - TP 1 applic HS [facility] Administration Heparin Sodium (Porcine) 5,000 unit 11/09/16 12:00 11/10/16 10:41 Heparin - SQ 5,000 unit BID [facility] Administration Midazolam HCl 100 mg/ Sodium 100 mls @ 2 mls/hr 11/09/16 09:45 11/10/16 10:42 Chloride IVPB Not Given TITR [facility] Protocol 2 MG/HR Azithromycin 250 mls @ 250 mls/hr 11/09/16 13:30 11/10/16 10:42 Zithromax 500mg Ivpb (Pre-Docked) IVPB 250 mls/hr DAILY [facility] Administration Famotidine/Sodium Chloride 50 mls @ 100 mls/hr 11/09/16 22:00 11/10/16 10:41 Pepcid 20 Mg Premixed Ivpb - IVPB 100 mls/hr BID [facility] Administration Fentanyl 500 mcg/ Dextrose 100 mls @ 20 mls/hr 11/09/16 14:45 11/10/16 05:36 IJ 45 mls/hr TITR [facility] Administration 100 MCG/HR Dextrose 1,000 mls @ 100 mls/hr 11/09/16 16:00 11/10/16 03:34 D10w - IV 100 mls/hr ASDIR [facility] Administration Sodium Chloride 1,000 mls @ 75 mls/hr 11/10/16 10:46 Normal Saline - IV ASDIR [facility] Insulin Aspart 1 vial 11/10/16 14:00 Novolog Vial Sliding Scale - SQ Q4HPO [facility] Protocol Mupirocin 1 applic 11/09/16 22:00 11/10/16 10:41 Bactroban Ointment (For Decolonization) - NS 11/14/16 21:59 1 applic BID [facility] Administration Piperacillin Sod/Tazobactam Sod 3.375 gm 11/10/16 11:30 Zosyn 3.375gm Ivpb (Pre-Docked) IVPB Q8H-IV [facility] Protocol Microbiology 11/09/16 07:45 Blood - Peripheral Venous Blood Culture - Preliminary NO GROWTH OBTAINED AFTER 24 HOURS, INCUBATION TO CONTINUE FOR 4 DAYS. 11/09/16 07:57 Urine - Urine Perez Urine Culture - Final NO GROWTH OBTAINED 11/09/16 07:50 Blood - Peripheral Venous Blood Culture - Preliminary NO GROWTH OBTAINED AFTER 24 HOURS, INCUBATION TO CONTINUE FOR 4 DAYS. 11/09/16 07:45 Urine For Antigen Detection Legionella Antigen - Final 11/09/16 07:45 Urine For Antigen Detection Streptococcus pneumoniae Antigen (M - Final Assessment: 46 year old female with hx of IDDM, noncompliance with insulin, multiple admissions for DKA, gastroparesis admitted with sepsis, pneumonia, acute hypxemic resp failure and ARDS, severe DKA. Plan: 1. Acute hypoxemic respiratory failure with severe Aa gradient, ARDS - Continue Mechanical ventilation - Start propofol gtt, uptitrate as needed for synchrony - Stop versed gtt - Decrease fent as BP tolerates 2. Hyperosmolar syndrome and DKA with severe metabolic acidosis - Insulin gtt off - Started levemir 10units - Start ISS, BGM q4h - If sugars 150-200, start d5 1/2 ns @ 100cc/hr - Currently, d10 off for hyperglycemia 3. Sepsis d/t PNA - s/p 5L bolus yesterday - Continue Zosyn q8 - Continue Azithro 500mg daily (day 2) - Urine legionella negative - F/u influenza panel, resp viral cx, sputum cx 4. Lactic acidosis - Improved this AM - Re Check lactate now - NS @ 75cc/hr 5. GIANCARLO - In the setting of sepsis - Improving 6. Electrolytes - Hypophosphatemia: Replete 30mmol - Hypomagnesemia: replete 1gm mg IV - Hypokalemia:replete 40meq x1 - Hypocalemia: replete ca gluconate x2gm 7. Acute blood loss anemia - Likely dilution w/ vol resuscitation - Monitor thrombocytopenia d/t sepsis 8. Depression - Will need psych consult when stable, abuses opiates non complaint with insulin 9. PPX GI: Pepcid DVT: heparin BID Visit type - Emergency Visit Emergency Visit: Yes ED Registration Date: 11/09/16 Care time: The patient presented to the Emergency Department on the above date and was hospitalized for further evaluation of their emergent condition. - New Patient This patient is new to me today: Yes Date on this admission: 11/10/16 - Critical Care Critical Care patient: Yes Total Critical Care Time (in minutes): 35 Critical Care Statement: The care of this patient involved high complexity decision making to prevent further life threatening deterioration of the patient 's condition and/or to evalute & treat vital organ system(s) failure or risk of failure.
[2016-11-10 15:06] LABS: ANION GAP 11 (8-16); BILIRUBIN,TOTAL 0.2 mg/dL (0.2-1.0); CO2 19 mmol/L (21-32); CREATININE 0.9 mg/dL (0.55-1.02); GLUCOSE,RANDOM 294 mg/dL (74-106); MAGNESIUM 1.7 mg/dL (1.8-2.4); PHOSPHOROUS 1.8 mg/dL (2.5-4.9); SGOT/AST 50 U/L (15-37); SGPT/ALT 17 U/L (12-78); TOT PROT 4.3 g/dl (6.4-8.2)
[2016-11-10 15:07] LABS: ALK PHOS 94 U/L (45-117)
[2016-11-10 15:16] LABS: CALCIUM 6.4 mg/dL (8.5-10.1)
[2016-11-10] MEDS: PROPOFOL 100 ML IVPB SCH ×2 (15:50→22:03)
[2016-11-10] MEDS: ACETAMINOPHEN 325 MG TABLET (FP) PO PRN ×2 (16:03→22:40)
[2016-11-10] MEDS ORDERED: SODIUM CHLORIDE 1,000 ML IV ONE (19:15)
[2016-11-10] MEDS: VANCOMYCIN 1 GRAM (PRE-DOCKED) 250 ML IVPB SCH (19:41)
[2016-11-10] MEDS: PIPERACILLIN/TAZOB 4.5 GM 4.5 GM in DEXTROSE 5%-WATER 100 ML IVPB SCH (19:41)
[2016-11-10] MEDS ORDERED: HEMOQUE TEST 1 EACH EACH ONE (19:57)
[2016-11-10 20:41] LABS: COCKROFT - GAULT 81.8125; CREATININE 0.7 mg/dL (0.55-1.02)
[2016-11-10 20:43] LABS: CALCIUM 6.3 mg/dL (8.5-10.1)
[2016-11-10] MEDS: D5-1/2NS+40 MEQ KCL - 1,000 ML IV SCH (21:00)
[2016-11-10] MEDS ORDERED: PROPOFOL 100 ML ONE (21:57)
[2016-11-10] MEDS ORDERED: HEPARIN NA (PORCINE) 5,000 UNITS/ML 1ML VIAL SQ SCH (22:00)
[2016-11-10] MEDS: CHLORHEXIDINE GLUCONATE 4% CLEANSER FOR DECOLONIZATION TP SCH (22:04)
[2016-11-11] MEDS ORDERED: PROPOFOL 100 ML ONE ×2 (00:11→05:37)
[2016-11-11] MEDS: INSULIN SLIDING SCALE (NOVOLOG) 1 VIAL SQ SCH ×9 (00:20→21:38)
[2016-11-11] MEDS: PIPERACILLIN/TAZOB 3.375 GM/50 ML PRE-DOCKED IVPB SCH ×3 (01:32→17:25)
[2016-11-11] MEDS: FENTANYL INJECTION 500 MCG in DEXTROSE 5%-WATER - 90 ML IJ SCH ×6 (01:33→19:39)
[2016-11-11] MEDS: ACETAMINOPHEN 325 MG TABLET (FP) PO PRN (02:08)
[2016-11-11] MEDS ORDERED: INSULIN (NOVOLOG) ASPART 100 UNITS/ML 10ML VIAL ONE (02:39)
[2016-11-11 06:11] LABS: BASOPHIL 0.3 % (0-2.0); MCH 31.4 pg (25.7-33.7); MCHC 33.7 g/dl (32.0-36.0); MEAN CELL VOLUME 93.4 fl (80-96); MEAN PLT VOLUME 8.6 fl (7.5-11.1); NEUTROPHILS 83.6 % (42.8-82.8); PLATELET COUNT 153 K/MM3 (134-434); RDW 14.3 % (11.6-15.6); WHITE BLOOD COUNT 10.6 K/mm3 (4.0-10.0)
[2016-11-11 06:40] LABS: ALBUMIN 1.7 g/dl (3.4-5.0); ANION GAP 12 (8-16); CO2 20 mmol/L (21-32); GLUCOSE,RANDOM 110 mg/dL (74-106); MAGNESIUM 1.7 mg/dL (1.8-2.4)
[2016-11-11 06:49] LABS: ALK PHOS 102 U/L (45-117); BILIRUBIN,TOTAL 0.2 mg/dL (0.2-1.0); COCKROFT - GAULT 81.8125; CREATININE 0.7 mg/dL (0.55-1.02); SGOT/AST 57 U/L (15-37); SGPT/ALT 21 U/L (12-78); TOT PROT 3.9 g/dl (6.4-8.2)
[2016-11-11 07:14] LABS: CALCIUM 6.5 mg/dL (8.5-10.1); PHOSPHOROUS 0.9 mg/dL (2.5-4.9)
[2016-11-11 07:45] LABS: ARTERIAL BLD GAS O2 SATURATION 99.3 % (90-98.9); ARTERIAL BLOOD GAS BASE EXCESS -5.5 meq/l (-2-2); ARTERIAL BLOOD GAS HCO3 18.4 meq/L (22-26)
[2016-11-11 07:46] LABS: ALLENS TEST POSITIVE; ART PUNCT SITE RIGHT RADIAL; LPM/O2% 100; MECH. VENT. YES; PT. ON O2? YES; TYPE OF O2 VENT
[2016-11-11 07:47] LABS: VENT RATE 16; VT/PRESS 450
[2016-11-11 07:49] LABS: ARTERIAL BLOOD GAS pH 7.34 (7.35-7.45)
[2016-11-11] MEDS ORDERED: ACETAMINOPHEN 1000 MG/100 ML VIAL (NON FORMULARY) IVPB ONE ×3 (08:00→23:27)
[2016-11-11] MEDS: MIDAZOLAM 100 MG in SODIUM CHLORIDE 100 ML IVPB SCH ×2 (08:19→09:45)
--- NOTE | 2016-11-11 08:22 | PN ---
Physical Exam: SUBJECTIVE: Patient seen and examined at bedside this AM. Febrile overnight with TMax 103. Eleveated HR & elevated RR with patient off versed. Restarted Versed & uptitrated propofol & fentanyl due to patient discomfort & thrashing aggressively in bed. OBJECTIVE: Vital Signs Period Temp Pulse Resp BP Sys/Rapp Pulse Ox Last 24 Hr 99 F-102.8 F 76-119 16-34 92-143/57-76 99-100 GENERAL: Intubated & sedated, resign comfortably once increased sedation HEENT: Atraumatic, EOMI, PERRLA, Moist membranes, no lymphadenopathy noted LUNGS: Moderate bibasilar crackles noted. No wheezing. HEART: Regular rate and rhythm, S1, S2 without murmur, rub or gallop. ABDOMEN: Soft, nontender, nondistended, normoactive bowel sounds EXTREMITIES: 2+ pulses, warm, well-perfused, trace edema bilateral upper extremity NEUROLOGICAL: Cranial nerves II through XII grossly intact. Gait and speech not observed. PSYCH: Unable to assess due to clinical condition. SKIN: Warm, dry, normal turgor, no rashes. Tattoos Laboratory Results - last 24 hr 11/10/16 11/10/16 11/10/16 20:00 20:08 20:09 WBC RBC Hgb Hct MCV MCHC RDW Plt Count MPV Neutrophils % Lymphocytes % Monocytes % Eosinophils % Basophils % Puncture Site ABG pH ABG pCO2 at Pt Temp ABG pO2 at Pt Temp ABG HCO3 ABG O2 Sat (Measured) ABG O2 Content ABG Base Excess Atul Test O2 Delivery Device Oxygen Flow Rate Vent Mode Vent Rate Mechanical Rate PEEP Pressure Support Vent Sodium 144 Potassium 3.2 L Chloride 114 H Carbon Dioxide 21 Anion Gap 9 BUN 12 D Creatinine 0.7 D Creat Clearance w eGFR POC Glucometer 78.76542 Random Glucose 62 L D Hemoglobin A1c % Lactic Acid 1.124 Calcium 6.3 L* Phosphorus Magnesium Total Bilirubin AST ALT Alkaline Phosphatase Total Protein Albumin 11/11/16 11/11/16 11/11/16 05:05 05:15 05:15 WBC 10.6 H RBC 2.79 L Hgb 8.8 L Hct 26.1 L MCV 93.4 MCHC 33.7 RDW 14.3 Plt Count 153 MPV 8.6 Neutrophils % 83.6 H Lymphocytes % 13.7 D Monocytes % 1.4 L Eosinophils % 1.0 D Basophils % 0.3 Puncture Site ABG pH ABG pCO2 at Pt Temp ABG pO2 at Pt Temp ABG HCO3 ABG O2 Sat (Measured) ABG O2 Content ABG Base Excess Atul Test O2 Delivery Device Oxygen Flow Rate Vent Mode Vent Rate Mechanical Rate PEEP Pressure Support Vent Sodium 147 H Potassium 3.6 Chloride 115 H Carbon Dioxide 20 L Anion Gap 12 BUN 8 D Creatinine 0.7 Creat Clearance w eGFR > 60 POC Glucometer 138.29729 Random Glucose 110 H D Hemoglobin A1c % Lactic Acid Calcium 6.5 L* Phosphorus 0.9 L* Magnesium 1.7 L Total Bilirubin 0.2 AST 57 H ALT 21 D Alkaline Phosphatase 102 Total Protein 3.9 L Albumin 1.7 L 11/11/16 11/11/16 11/11/16 05:15 06:17 07:00 WBC RBC Hgb Hct MCV MCHC RDW Plt Count MPV Neutrophils % Lymphocytes % Monocytes % Eosinophils % Basophils % Puncture Site Right radial ABG pH 7.34 L ABG pCO2 at Pt Temp 36.1 D ABG pO2 at Pt Temp 144.0 H ABG HCO3 18.4 L ABG O2 Sat (Measured) 99.3 H ABG O2 Content 13.5 L ABG Base Excess -5.5 L Atul Test Positive O2 Delivery Device Vent Oxygen Flow Rate 100 Vent Mode A/c Vent Rate 16 Mechanical Rate Yes PEEP 5.0 Pressure Support Vent 450 Sodium Potassium Chloride Carbon Dioxide Anion Gap BUN Creatinine Creat Clearance w eGFR POC Glucometer 131.75246 Random Glucose Hemoglobin A1c % Lactic Acid 2.684 H* Calcium Phosphorus Magnesium Total Bilirubin AST ALT Alkaline Phosphatase Total Protein Albumin Active Medications Generic Name Dose Route Start Last Admin Trade Name Freq PRN Reason Stop Dose Admin Acetaminophen 650 mg 11/10/16 14:45 11/11/16 02:08 Tylenol - PO 650 mg Q4H PRN Administration FEVER OR PAIN Chlorhexidine Gluconate 1 applic 11/09/16 22:00 11/10/16 22:04 Hibiclens For Decolonization - TP 1 applic HS [facility] Administration Heparin Sodium (Porcine) 5,000 unit 11/10/16 22:00 11/10/16 22:08 Heparin - SQ 5,000 unit BID [facility] Administration Midazolam HCl 100 mg/ Sodium 100 mls @ 2 mls/hr 11/09/16 09:45 11/11/16 08:19 Chloride IVPB 6 mls/hr TITR [facility] Administration Protocol 2 MG/HR Azithromycin 250 mls @ 250 mls/hr 11/09/16 13:30 11/10/16 10:42 Zithromax 500mg Ivpb (Pre-Docked) IVPB 250 mls/hr DAILY [facility] Administration Famotidine/Sodium Chloride 50 mls @ 100 mls/hr 11/09/16 22:00 11/10/16 22:08 Pepcid 20 Mg Premixed Ivpb - IVPB 100 mls/hr BID [facility] Administration Fentanyl 500 mcg/ Dextrose 100 mls @ 20 mls/hr 11/09/16 14:45 11/11/16 06:20 IJ 150 mcg/hr TITR [facility] Titration 100 MCG/HR Dextrose 1,000 mls @ 100 mls/hr 11/09/16 16:00 11/10/16 19:30 D10w - IV Not Given ASDIR [facility] Propofol 100 mls @ 1.565 mls/hr 11/10/16 14:45 11/11/16 06:20 Diprivan - IVPB 30 mcg/kg/min TITR [facility] Titration Protocol 5 MCG/KG/MIN Dextrose/Sodium Chloride 1,000 mls @ 100 mls/hr 11/10/16 21:00 11/10/16 21:00 D5-1/2ns+40 Meq Kcl - IV 100 mls/hr ASDIR [facility] Administration Insulin Aspart 1 vial 11/10/16 19:30 11/11/16 05:35 Novolog Vial Sliding Scale - SQ Not Given Q2H [facility] Protocol Mupirocin 1 applic 11/09/16 22:00 11/10/16 22:04 Bactroban Ointment (For Decolonization) - NS 11/14/16 21:59 1 applic BID [facility] Administration Piperacillin Sod/Tazobactam Sod 3.375 gm 11/10/16 11:30 11/11/16 01:32 Zosyn 3.375gm Ivpb (Pre-Docked) IVPB 3.375 gm Q8H-IV [facility] Administration Protocol ASSESSMENT/PLAN: 46 year old female with significant PMH of IDDM w/ poor compliance and multiple visits for DKA/Gastroparesis & chronic opioid use for back pain who presented to ED with severe DKA & mixed severe metabolic acidosis with positive ketones and positive lactate 6 after 1 week of not taking insulin. Chest xray was notable for right mid lung infiltrate/pnemonia with WBC severely elevated. #Acute Hypoxemic Respiratory Failure, ARDS in setting of Pneumonia -intubated & sedated on Fentanyl/Versed/Propofol -Zosyn day 2 -Azithromycin day 3 -IVF D5-1/2NS w/ 40mEq KCl @100ml/hr -cultures (-) thus far, urine antigens (-) -Lactate elevated this AM 2.6, given IVF bolus but even more elevated this afternoon, 4.9 -will consult ID to reassess antibiotic regimen -CXR reviewed #DKA w/ severe metabolic acidosis -anion gap closed -insulin drip was discontinued, currently on Sliding scale Insulin -BGM Q6H #GIANCARLO -resolved -avoid nephrotoxic meds -continue to monitor kidney function #Electrolytes abnormalities -repleted Magnesium & Calcium this AM -potassium repletion via IVF supplementation -continue to monitor Prophylaxis -Heparin 5000BID -Pepcid BID -IVF, as above -monitor electrolytes -NPO Visit type - Emergency Visit Emergency Visit: Yes ED Registration Date: 11/09/16 Care time: The patient presented to the Emergency Department on the above date and was hospitalized for further evaluation of their emergent condition. - New Patient This patient is new to me today: Yes Date on this admission: 11/11/16 - Critical Care Critical Care patient: Yes Total Critical Care Time (in minutes): 45 Critical Care Statement: The care of this patient involved high complexity decision making to prevent further life threatening deterioration of the patient 's condition and/or to evalute & treat vital organ system(s) failure or risk of failure.
--- NOTE | 2016-11-11 08:56 | EKG ---
Test Reason : Blood Pressure : / mmHG Vent. Rate : 170 BPM Atrial Rate : 150 BPM P-R Int : 000 ms QRS Dur : 102 ms QT Int : 256 ms P-R-T Axes : 000 072 -25 degrees QTc Int : 430 ms ATRIAL FIBRILLATION WITH RAPID VENTRICULAR RESPONSE NONSPECIFIC ST AND T WAVE ABNORMALITY ABNORMAL ECG WHEN COMPARED WITH ECG OF 09-NOV-2016 07:09, ATRIAL FIBRILLATION HAS REPLACED SINUS RHYTHM Confirmed by JALIL MINAYA MD ([id number]) on 11/11/2016 8:56:03 AM Referred By: Confirmed By:JALIL MINAYA MD
[2016-11-11] MEDS: HEPARIN NA (PORCINE) 5,000 UNITS/ML 1ML VIAL SQ SCH ×2 (09:09→21:38)
[2016-11-11] MEDS: AZITHROMYCIN IVPB 250 ML IVPB SCH (09:09)
[2016-11-11] MEDS: FAMOTIDINE 20 MG/50 ML IVPB 50 ML IVPB SCH ×2 (09:09→21:37)
[2016-11-11] MEDS ORDERED: SODIUM CHLORIDE 1,000 ML IV STA ×4 (09:11→18:35)
[2016-11-11] MEDS: MUPIROCIN 2% TOPICAL OINTMENT FOR DECOLONIZATION NS SCH ×2 (09:17→21:39)
[2016-11-11] MEDS ORDERED: MAGNESIUM SULF 50% (8.12 MEQ/2 ML-1 GM VIAL) IVPB ONE (10:00)
--- NOTE | 2016-11-11 10:18 | PN ---
Physical Exam: SUBJECTIVE: Patient seen and examined. She is intubated, sedated. OBJECTIVE: Placed back on Versed gtt for agitation Also on Fentanyl gtt and Propofol gtt Vent setting a/c, agonal breathing with intubation bilateral hands with non pitting edema Mag 1.7 > repleted with magnesium 2 gram x 1 Fever 101F, given IV Tylenol Lactic acidosis 2.6 > 1 liter bolus of NS infusing now, repeat lactic levels 4.9 , will bolus 1 liter x 1 and give 1 state dose of Clyndamycin 600mg IV, ID consulted Vital Signs Period Temp Pulse Resp BP Sys/Rapp Pulse Ox Last 24 Hr 99 F-102.8 F 77-119 16-34 92-143/57-76 93-100 GENERAL: sedated, intubated HEAD: Normal with no signs of trauma. EYES: PERRL, extraocular movements intact, sclera anicteric, conjunctiva clear. No ptosis. ENT: Ears normal, nares patent, oropharynx clear without exudates, moist mucous membranes. NECK: Trachea midline, full range of motion, supple. LUNGS: anterior lung sounds clear HEART: Regular rate and rhythm, ABDOMEN: Soft, nontender, nondistended, normoactive bowel sounds EXTREMITIES: bilateral hands with non pitting NEUROLOGICAL: sedated, appears anxious despite sedation PSYCH: Normal mood, normal affect. SKIN: Warm, dry, normal turgor, no rashes or lesions noted Laboratory Results - last 24 hr 11/09/16 11/09/16 11/09/16 11:48 13:38 14:37 WBC RBC Hgb Hct MCV MCHC RDW Plt Count MPV Neutrophils % Lymphocytes % Monocytes % Eosinophils % Basophils % Puncture Site ABG pH ABG pCO2 at Pt Temp ABG pO2 at Pt Temp ABG HCO3 ABG O2 Sat (Measured) ABG O2 Content ABG Base Excess Atul Test O2 Delivery Device Oxygen Flow Rate Vent Mode Vent Rate Mechanical Rate PEEP Pressure Support Vent Sodium Potassium Chloride Carbon Dioxide Anion Gap BUN Creatinine Creat Clearance w eGFR POC Glucometer > 400 > 400 > 400 Random Glucose Lactic Acid Calcium Phosphorus Magnesium Total Bilirubin AST ALT Alkaline Phosphatase Total Protein Albumin 11/10/16 11/10/16 11/10/16 09:00 09:57 10:49 WBC RBC Hgb Hct MCV MCHC RDW Plt Count MPV Neutrophils % Lymphocytes % Monocytes % Eosinophils % Basophils % Puncture Site ABG pH ABG pCO2 at Pt Temp ABG pO2 at Pt Temp ABG HCO3 ABG O2 Sat (Measured) ABG O2 Content ABG Base Excess Atul Test O2 Delivery Device Oxygen Flow Rate Vent Mode Vent Rate Mechanical Rate PEEP Pressure Support Vent Sodium Potassium Chloride Carbon Dioxide Anion Gap BUN Creatinine Creat Clearance w eGFR POC Glucometer 265.80864 245.97325 Random Glucose Lactic Acid 2.935 H* Calcium Phosphorus Magnesium Total Bilirubin AST ALT Alkaline Phosphatase Total Protein Albumin 11/10/16 11/10/16 11/10/16 11:58 13:05 14:00 WBC RBC Hgb Hct MCV MCHC RDW Plt Count MPV Neutrophils % Lymphocytes % Monocytes % Eosinophils % Basophils % Puncture Site ABG pH ABG pCO2 at Pt Temp ABG pO2 at Pt Temp ABG HCO3 ABG O2 Sat (Measured) ABG O2 Content ABG Base Excess Atul Test O2 Delivery Device Oxygen Flow Rate Vent Mode Vent Rate Mechanical Rate PEEP Pressure Support Vent Sodium 140 Potassium 3.6 Chloride 110 H Carbon Dioxide 19 L Anion Gap 11 BUN 17 D Creatinine 0.9 Creat Clearance w eGFR > 60 POC Glucometer 303.00551 364.83138 Random Glucose 294 H D Lactic Acid Calcium 6.4 L* Phosphorus 1.8 L D Magnesium 1.7 L Total Bilirubin 0.2 AST 50 H ALT 17 Alkaline Phosphatase 94 Total Protein 4.3 L Albumin 2.0 L 11/10/16 11/10/16 11/10/16 16:14 16:24 18:16 WBC RBC Hgb Hct MCV MCHC RDW Plt Count MPV Neutrophils % Lymphocytes % Monocytes % Eosinophils % Basophils % Puncture Site ABG pH ABG pCO2 at Pt Temp ABG pO2 at Pt Temp ABG HCO3 ABG O2 Sat (Measured) ABG O2 Content ABG Base Excess Atul Test O2 Delivery Device Oxygen Flow Rate Vent Mode Vent Rate Mechanical Rate PEEP Pressure Support Vent Sodium Potassium Chloride Carbon Dioxide Anion Gap BUN Creatinine Creat Clearance w eGFR POC Glucometer 162.61215 87.47357 Random Glucose Lactic Acid 3.518 H* Calcium Phosphorus Magnesium Total Bilirubin AST ALT Alkaline Phosphatase Total Protein Albumin 11/10/16 11/10/16 11/10/16 18:56 20:00 20:08 WBC RBC Hgb Hct MCV MCHC RDW Plt Count MPV Neutrophils % Lymphocytes % Monocytes % Eosinophils % Basophils % Puncture Site ABG pH ABG pCO2 at Pt Temp ABG pO2 at Pt Temp ABG HCO3 ABG O2 Sat (Measured) ABG O2 Content ABG Base Excess Atul Test O2 Delivery Device Oxygen Flow Rate Vent Mode Vent Rate Mechanical Rate PEEP Pressure Support Vent Sodium 144 Potassium 3.2 L Chloride 114 H Carbon Dioxide 21 Anion Gap 9 BUN 12 D Creatinine 0.7 D Creat Clearance w eGFR POC Glucometer 97.14626 78.36162 Random Glucose 62 L D Lactic Acid Calcium 6.3 L* Phosphorus Magnesium Total Bilirubin AST ALT Alkaline Phosphatase Total Protein Albumin 11/10/16 11/10/16 11/10/16 20:09 21:32 22:45 WBC RBC Hgb Hct MCV MCHC RDW Plt Count MPV Neutrophils % Lymphocytes % Monocytes % Eosinophils % Basophils % Puncture Site ABG pH ABG pCO2 at Pt Temp ABG pO2 at Pt Temp ABG HCO3 ABG O2 Sat (Measured) ABG O2 Content ABG Base Excess Atul Test O2 Delivery Device Oxygen Flow Rate Vent Mode Vent Rate Mechanical Rate PEEP Pressure Support Vent Sodium Potassium Chloride Carbon Dioxide Anion Gap BUN Creatinine Creat Clearance w eGFR POC Glucometer 175.47374 160.95755 Random Glucose Lactic Acid 1.124 Calcium Phosphorus Magnesium Total Bilirubin AST ALT Alkaline Phosphatase Total Protein Albumin 11/11/16 11/11/16 11/11/16 00:01 00:05 01:24 WBC RBC Hgb Hct MCV MCHC RDW Plt Count MPV Neutrophils % Lymphocytes % Monocytes % Eosinophils % Basophils % Puncture Site ABG pH ABG pCO2 at Pt Temp ABG pO2 at Pt Temp ABG HCO3 ABG O2 Sat (Measured) ABG O2 Content ABG Base Excess Atul Test O2 Delivery Device Oxygen Flow Rate Vent Mode Vent Rate Mechanical Rate PEEP Pressure Support Vent Sodium Potassium Chloride Carbon Dioxide Anion Gap BUN Creatinine Creat Clearance w eGFR POC Glucometer > 400 184.10978 218.49678 Random Glucose Lactic Acid Calcium Phosphorus Magnesium Total Bilirubin AST ALT Alkaline Phosphatase Total Protein Albumin 11/11/16 11/11/16 11/11/16 02:25 03:14 04:13 WBC RBC Hgb Hct MCV MCHC RDW Plt Count MPV Neutrophils % Lymphocytes % Monocytes % Eosinophils % Basophils % Puncture Site ABG pH ABG pCO2 at Pt Temp ABG pO2 at Pt Temp ABG HCO3 ABG O2 Sat (Measured) ABG O2 Content ABG Base Excess Atul Test O2 Delivery Device Oxygen Flow Rate Vent Mode Vent Rate Mechanical Rate PEEP Pressure Support Vent Sodium Potassium Chloride Carbon Dioxide Anion Gap BUN Creatinine Creat Clearance w eGFR POC Glucometer 236.34814 244.87714 168.82387 Random Glucose Lactic Acid Calcium Phosphorus Magnesium Total Bilirubin AST ALT Alkaline Phosphatase Total Protein Albumin 11/11/16 11/11/16 11/11/16 05:05 05:15 05:15 WBC 10.6 H RBC 2.79 L Hgb 8.8 L Hct 26.1 L MCV 93.4 MCHC 33.7 RDW 14.3 Plt Count 153 MPV 8.6 Neutrophils % 83.6 H Lymphocytes % 13.7 D Monocytes % 1.4 L Eosinophils % 1.0 D Basophils % 0.3 Puncture Site ABG pH ABG pCO2 at Pt Temp ABG pO2 at Pt Temp ABG HCO3 ABG O2 Sat (Measured) ABG O2 Content ABG Base Excess Atul Test O2 Delivery Device Oxygen Flow Rate Vent Mode Vent Rate Mechanical Rate PEEP Pressure Support Vent Sodium 147 H Potassium 3.6 Chloride 115 H Carbon Dioxide 20 L Anion Gap 12 BUN 8 D Creatinine 0.7 Creat Clearance w eGFR > 60 POC Glucometer 138.14879 Random Glucose 110 H D Lactic Acid Calcium 6.5 L* Phosphorus 0.9 L* Magnesium 1.7 L Total Bilirubin 0.2 AST 57 H ALT 21 D Alkaline Phosphatase 102 Total Protein 3.9 L Albumin 1.7 L 11/11/16 11/11/16 11/11/16 05:15 06:17 07:00 WBC RBC Hgb Hct MCV MCHC RDW Plt Count MPV Neutrophils % Lymphocytes % Monocytes % Eosinophils % Basophils % Puncture Site Right radial ABG pH 7.34 L ABG pCO2 at Pt Temp 36.1 D ABG pO2 at Pt Temp 144.0 H ABG HCO3 18.4 L ABG O2 Sat (Measured) 99.3 H ABG O2 Content 13.5 L ABG Base Excess -5.5 L Atul Test Positive O2 Delivery Device Vent Oxygen Flow Rate 100 Vent Mode A/c Vent Rate 16 Mechanical Rate Yes PEEP 5.0 Pressure Support Vent 450 Sodium Potassium Chloride Carbon Dioxide Anion Gap BUN Creatinine Creat Clearance w eGFR POC Glucometer 131.63738 Random Glucose Lactic Acid 2.684 H* Calcium Phosphorus Magnesium Total Bilirubin AST ALT Alkaline Phosphatase Total Protein Albumin Active Medications Generic Name Dose Route Start Last Admin Trade Name Freq PRN Reason Stop Dose Admin Acetaminophen 650 mg 11/10/16 14:45 11/11/16 02:08 Tylenol - PO 650 mg Q4H PRN Administration FEVER OR PAIN Chlorhexidine Gluconate 1 applic 11/09/16 22:00 11/10/16 22:04 Hibiclens For Decolonization - TP 1 applic HS [facility] Administration Heparin Sodium (Porcine) 5,000 unit 11/10/16 22:00 11/11/16 09:09 Heparin - SQ 5,000 unit BID [facility] Administration Midazolam HCl 100 mg/ Sodium 100 mls @ 2 mls/hr 11/09/16 09:45 11/11/16 08:19 Chloride IVPB 6 mls/hr TITR [facility] Administration Protocol 2 MG/HR Azithromycin 250 mls @ 250 mls/hr 11/09/16 13:30 11/11/16 09:09 Zithromax 500mg Ivpb (Pre-Docked) IVPB 250 mls/hr DAILY [facility] Administration Famotidine/Sodium Chloride 50 mls @ 100 mls/hr 11/09/16 22:00 11/11/16 09:09 Pepcid 20 Mg Premixed Ivpb - IVPB 100 mls/hr BID [facility] Administration Fentanyl 500 mcg/ Dextrose 100 mls @ 20 mls/hr 11/09/16 14:45 11/11/16 09:00 IJ 200 mcg/hr TITR [facility] Titration 100 MCG/HR Dextrose 1,000 mls @ 100 mls/hr 11/09/16 16:00 11/10/16 19:30 D10w - IV Not Given ASDIR [facility] Propofol 100 mls @ 1.565 mls/hr 11/10/16 14:45 11/11/16 07:30 Diprivan - IVPB 50 mcg/kg/min TITR [facility] Titration Protocol 5 MCG/KG/MIN Dextrose/Sodium Chloride 1,000 mls @ 100 mls/hr 11/10/16 21:00 11/10/16 21:00 D5-1/2ns+40 Meq Kcl - IV 100 mls/hr ASDIR [facility] Administration Insulin Aspart 1 vial 11/11/16 11:00 Novolog Vial Sliding Scale - SQ ACHS [facility] Protocol Mupirocin 1 applic 11/09/16 22:00 11/11/16 09:17 Bactroban Ointment (For Decolonization) - NS 11/14/16 21:59 1 applic BID [facility] Administration Piperacillin Sod/Tazobactam Sod 3.375 gm 11/10/16 11:30 11/11/16 09:09 Zosyn 3.375gm Ivpb (Pre-Docked) IVPB 3.375 gm Q8H-IV [facility] Administration Protocol ASSESSMENT/PLAN: Patient is a 46 year old female with a significant past medical history of IDDM with non compliance, DKA, gastroparesis and polysubstance abuse. She presented to the ED on complaints of nausea and vomiting and was found to be in severe DKA with a glucose greater than 1000, severe metabolic acidosis with positive ketones, WBC on admission was 28.8 with lactic acidosis at 6.4. She was admitted to the ICU for closer monitoring. ID: Severe Sepsis secondary to Pneumonia with acute hypoxemic respiratory failure - acute Assessment/Plan: Lactic acidosis on admission 6.4, despite fluid boluses, lactic acid still elevated at 4.9 Continue to bolus saline and repeat lactic acid levels q4 for improvement On antibiotics of Zosyn since 11/10 and Azithromycin since 11/10 Will give her 1 dose of Clindamycin 600mg x 1 and consult ID Blood culture and urine culture reordered She is sedated with versed, propofol, and fentanyl for agitation, trials of weaning ongoing Await ID recommendations Renal: GIANCARLO in the setting of sepsis - resolved Assessment/Plan: Creatinine 3.3>0.7 Now resolved, monitor with BMP Endocrine: DKA/IDDM/with severe hyperglycemia on admission Assessment/Plan: On sliding scale, monitor s/p insulin drip Hematology: Anemia - acute Assessment/Plan: likely dilutional Monitor CBC F.E.N. Fluids: numerous fluid boluses, D5 1/2 NS 40MEQ @ 100cc/hr Electrolytes: hypomagnesium 1.7, given 2 grams of mag x 1 hypocalcemia: corrected @8.7 Nutrition: NPO - intubated/sedated Prophylaxis: GI: On pepcid DVT: SCDs, Heparin BID Disposition: Critically ill, requires ICU monitoring. Full Code. Visit type - Emergency Visit Emergency Visit: Yes ED Registration Date: 11/09/16 Care time: The patient presented to the Emergency Department on the above date and was hospitalized for further evaluation of their emergent condition. - New Patient This patient is new to me today: Yes Date on this admission: 11/11/16 - Critical Care Critical Care patient: Yes Total Critical Care Time (in minutes): 60 Critical Care Statement: The care of this patient involved high complexity decision making to prevent further life threatening deterioration of the patient 's condition and/or to evalute & treat vital organ system(s) failure or risk of failure.
--- NOTE | 2016-11-11 10:38 | EKG ---
Test Reason : Blood Pressure : / mmHG Vent. Rate : 074 BPM Atrial Rate : 074 BPM P-R Int : 122 ms QRS Dur : 090 ms QT Int : 404 ms P-R-T Axes : 040 075 017 degrees QTc Int : 448 ms NORMAL SINUS RHYTHM NORMAL ECG WHEN COMPARED WITH ECG OF 09-NOV-2016 12:11, VENT. RATE HAS DECREASED Confirmed by ROMIE THOMAS MD ([id number]) on 11/11/2016 10:38:36 AM Referred By: Phyllis WALKER Confirmed By:ROMIE THOMAS MD
[2016-11-11] MEDS: PROPOFOL 100 ML IVPB SCH ×4 (10:45→23:54)
--- NOTE | 2016-11-11 10:46 | EKG ---
Test Reason : Blood Pressure : / mmHG Vent. Rate : 103 BPM Atrial Rate : 103 BPM P-R Int : 128 ms QRS Dur : 108 ms QT Int : 360 ms P-R-T Axes : 061 072 015 degrees QTc Int : 471 ms SINUS TACHYCARDIA POSSIBLE LEFT ATRIAL ENLARGEMENT BORDERLINE ECG WHEN COMPARED WITH ECG OF 09-NOV-2016 08:27, SINUS RHYTHM HAS REPLACED ATRIAL FIBRILLATION VENT. RATE HAS DECREASED BY 67 BPM Confirmed by MARTHA ALONSO, ROMIE ([id number]) on 11/11/2016 10:46:28 AM Referred By: Phyllis WALKER Confirmed By:ROMIE THOMAS MD
[2016-11-11] MEDS ORDERED: INSULIN SLIDING SCALE (NOVOLOG) 1 VIAL SQ SCH (12:00)
--- NOTE | 2016-11-11 12:56 | PN ---
Teaching Attending Note Name of Resident: Chema Alston ATTENDING PHYSICIAN STATEMENT I saw and evaluated the patient. I reviewed the resident's note and discussed the case with the resident. I agree with the resident's findings and plan as documented. SUBJECTIVE: Pt seen and examined in the ICU. Remains intubated, sedated. Tachypneic, agitated, asynchronous with vent when sedation lightened. OBJECTIVE: Last Vital Signs Temp Pulse Resp BP Pulse Ox 99.7 F H 83 21 91/55 100 11/11/16 12:00 11/11/16 12:00 11/11/16 12:06 11/11/16 12:00 11/11/16 10:51 Intake & Output 11/08/16 11/09/16 11/10/16 11/11/16 23:59 23:59 23:59 23:59 Intake Total 9681 5220.9 1000 Output Total 3650 2150 2000 Balance 6031 3070.9 -1000 Weight 115 lb Gen: intubated, tachypneic Heart: RRR Lung: distant breath sounds Abd: soft, nontender Ext: upper extremity edema CBC, BMP 11/11/16 05:15 11/11/16 05:15 Active Medications Acetaminophen (Tylenol -) 650 mg PO Q4H PRN PRN Reason: FEVER OR PAIN Last Admin: 11/11/16 02:08 Dose: 650 mg Chlorhexidine Gluconate (Hibiclens For Decolonization -) 1 applic TP HS [facility] Last Admin: 11/10/16 22:04 Dose: 1 applic Heparin Sodium (Porcine) (Heparin -) 5,000 unit SQ BID [facility] Last Admin: 11/11/16 09:09 Dose: 5,000 unit Midazolam HCl 100 mg/ Sodium (Chloride) 100 mls @ 2 mls/hr IVPB TITR [facility]; 2 MG/ HR PRN Reason: Protocol Last Admin: 11/11/16 09:45 Dose: Not Given Azithromycin (Zithromax 500mg Ivpb (Pre-Docked)) 250 mls @ 250 mls/hr IVPB DAILY [facility] Last Admin: 11/11/16 09:09 Dose: 250 mls/hr Famotidine/Sodium Chloride (Pepcid 20 Mg Premixed Ivpb -) 50 mls @ 100 mls/hr IVPB BID [facility] Last Admin: 11/11/16 09:09 Dose: 100 mls/hr Fentanyl 500 mcg/ Dextrose 100 mls @ 20 mls/hr IJ TITR [facility] PRN Reason: 100 MCG/HR Last Admin: 11/11/16 10:44 Dose: 40 mls/hr Dextrose (D10w -) 1,000 mls @ 100 mls/hr IV ASDIR [facility] Last Admin: 11/10/16 19:30 Dose: Not Given Propofol (Diprivan -) 100 mls @ 1.565 mls/hr IVPB TITR [facility]; 5 MCG/KG/MIN PRN Reason: Protocol Last Admin: 11/11/16 10:45 Dose: 15.649 mls/hr Dextrose/Sodium Chloride (D5-1/2ns+40 Meq Kcl -) 1,000 mls @ 100 mls/hr IV ASDIR [facility] Last Admin: 11/10/16 21:00 Dose: 100 mls/hr Insulin Aspart (Novolog Vial Sliding Scale -) 1 vial SQ ACHS [facility] PRN Reason: Protocol Last Admin: 11/11/16 12:00 Dose: 8 units Mupirocin (Bactroban Ointment (For Decolonization) -) 1 applic NS BID [facility] Stop: 11/14/16 21:59 Last Admin: 11/11/16 09:17 Dose: 1 applic Piperacillin Sod/Tazobactam Sod (Zosyn 3.375gm Ivpb (Pre-Docked)) 3.375 gm IVPB Q8H-IV [facility] PRN Reason: Protocol Last Admin: 11/11/16 09:09 Dose: 3.375 gm ASSESSMENT AND PLAN: Acute Respiratory Failure Pneumonia ARDS Diabetic Ketoacidosis resolving Severe Metabolic Acidosis Acute Kidney Injury Lactic Acidosis Noncompliance - glucose control - continue IVF - adjusted vent settings - continue antibiotics - f/u cultures - monitor urine output, creatinine - replete lytes - trend lactate - sedate for vent synchrony - lighten sedation in AM to assess mental status - start spontaneous breathing trials when mental status improved - NPO - DVT/GI prophyalxis - continue ICU monitoring critical care time spent in reviewing chart, evaluating patient and formulating plan 40 min Problem List - Problems (1) DKA (diabetic ketoacidoses) Code(s): E13.10 - OTH DIABETES MELLITUS WITH KETOACIDOSIS WITHOUT COMA Qualifiers: Diabetes mellitus type: type 1 Diabetes mellitus complication detail: with coma Qualified Code(s): E10.11 - Type 1 diabetes mellitus with ketoacidosis with coma (2) Metabolic encephalopathy Code(s): G93.41 - METABOLIC ENCEPHALOPATHY (3) Pneumonia Code(s): J18.9 - PNEUMONIA, UNSPECIFIED ORGANISM Qualifiers: Pneumonia type: due to unspecified organism Laterality: bilateral Lung location: upper lobe of lung Qualified Code(s): J18.9 - Pneumonia, unspecified organism (4) Respiratory failure with hypoxia Code(s): J96.91 - RESPIRATORY FAILURE, UNSPECIFIED WITH HYPOXIA Qualifiers: Chronicity: acute Qualified Code(s): J96.01 - Acute respiratory failure with hypoxia (5) Acute renal failure Code(s): N17.9 - ACUTE KIDNEY FAILURE, UNSPECIFIED Qualifiers: Acute renal failure type: unspecified Qualified Code(s): N17.9 - Acute kidney failure, unspecified (6) Diabetic gastroparesis associated with type 1 diabetes mellitus Code(s): E10.43 - TYPE 1 DIABETES W DIABETIC AUTONOMIC (POLY)NEUROPATHY K31.84 - GASTROPARESIS (7) Diabetic keto-acidosis Code(s): E13.10 - OTH DIABETES MELLITUS WITH KETOACIDOSIS WITHOUT COMA (8) High anion gap metabolic acidosis Code(s): E87.2 - ACIDOSIS (9) Lactic acid acidosis Code(s): E87.2 - ACIDOSIS (10) Renal failure (ARF), acute on chronic Code(s): N17.9 - ACUTE KIDNEY FAILURE, UNSPECIFIED N18.9 - CHRONIC KIDNEY DISEASE, UNSPECIFIED
--- NOTE | 2016-11-11 13:05 | EKG ---
Test Reason : Blood Pressure : / mmHG Vent. Rate : 121 BPM Atrial Rate : 121 BPM P-R Int : 118 ms QRS Dur : 098 ms QT Int : 418 ms P-R-T Axes : 077 075 067 degrees QTc Int : 593 ms POOR DATA QUALITY, INTERPRETATION MAY BE ADVERSELY AFFECTED SINUS TACHYCARDIA WITH OCCASIONAL FUSION COMPLEXES POSSIBLE LEFT ATRIAL ENLARGEMENT NONSPECIFIC ST AND T WAVE ABNORMALITY ABNORMAL ECG WHEN COMPARED WITH ECG OF 26-MAR-2015 17:10, FUSION COMPLEXES ARE NOW PRESENT T WAVE AMPLITUDE HAS INCREASED IN ANTERIOR LEADS (Consider possible hyperkalemia) Confirmed by JALIL MINAYA MD ([id number] on 11/11/2016 1:04:51 PM Referred By: EDITH TORRE Confirmed By:JALIL MINAYA MD
[2016-11-11] MEDS: D5-1/2NS+40 MEQ KCL - 1,000 ML IV SCH ×2 (14:00→21:40)
[2016-11-11] MEDS ORDERED: CLINDAMYCIN 600MG PREMIX IVPB 50 ML IVPB ONE (14:30)
[2016-11-11] MEDS: DEXTROSE 10%-WATER - 1,000 ML IV SCH (16:00)
[2016-11-11 18:19] LABS: BASOPHIL 0.5 % (0-2.0); EOSINOPHIL 1.8 % (0-4.5); MCH 30.6 pg (25.7-33.7); MCHC 32.8 g/dl (32.0-36.0); MEAN CELL VOLUME 93.4 fl (80-96); MEAN PLT VOLUME 8.8 fl (7.5-11.1); NEUTROPHILS 83.1 % (42.8-82.8); PLATELET COUNT 151 K/MM3 (134-434); RDW 14.4 % (11.6-15.6); WHITE BLOOD COUNT 11.3 K/mm3 (4.0-10.0)
[2016-11-11 18:38] LABS: ALBUMIN 1.6 g/dl (3.4-5.0); ALK PHOS 116 U/L (45-117); ANION GAP 9 (8-16); BILIRUBIN,TOTAL 0.2 mg/dL (0.2-1.0); CO2 21 mmol/L (21-32); COCKROFT - GAULT 95.4465; CREATININE 0.6 mg/dL (0.55-1.02); GLUCOSE,RANDOM 128 mg/dL (74-106); SGOT/AST 74 U/L (15-37); SGPT/ALT 26 U/L (12-78)
[2016-11-11 18:46] LABS: CALCIUM 6.5 mg/dL (8.5-10.1)
--- NOTE | 2016-11-11 19:26 | CONSULT ---
Consult Consult Specialty:: infectious diseases Reason for Consultation:: sepsis - History of Present Illness History of Present Illness: patients complete history taken from the charts as patient is intubated and sedated but this patienthas a long hisotry of using drugs and pain meds 46yo female with h/o IDDM with poor compliance, diabetic gastroparesis, h/o DKA who presented to [facility] with nausea, vomiting and shortness of breath. Became lethargic in the ER, noted to be in severe DKA and subsequently intubated and transferred to the ICU. patient was worked up and was found to have infiltrates in the lung patinet was unstable so other imaging studies could not be done patient has multiple issues complicating her picture patient has been started on zosyn and got one dose of clinda - History Source History Provided By: Medical Record Limitations to Obtaining History: Clinical Condition - Past Medical History [employer]: Yes: Migraine ...LMP: 04/14/13 Endocrine: Yes: Diabetes Mellitus Additional Medical History: dka in the past - Past Surgical History Past Surgical History: Yes: Cholecystectomy - Alcohol/Substance Use Hx Alcohol Use: No - Smoking History Smoking history: Unknown if ever smoked Have you smoked in the past 12 months: Yes Aproximately how many cigarettes per day: 20 Home Medications - Allergies Allergies/Adverse Reactions: Allergies Allergy/AdvReac Type Severity Reaction Status Date / Time No Known Allergies Allergy Verified 03/26/15 16:45 - Home Medications Home Medications: Ambulatory Orders Morphine Sulfate [Ms Contin] 120 mg PO BID 06/20/15 Oxycodone HCl/Acetaminophen [Percocet 10-325 mg Tablet] 1 - 2 tab PO Q6H Insulin (Levemir) [Levemir Vial] 20 unit SQ HS #30 ml 12/07/15 Insulin Sliding Scale [Novolog Vial Sliding Scale -] See Protocol SQ AC 30 Days 12/07/15 Insulin Sliding Scale [Novolog Vial Sliding Scale -] See Protocol SQ AC 30 Days 12/07/15 Metoclopramide HCl [Reglan] 10 mg PO TID PRN #90 tablet 12/07/15 Review of Systems Unable to obtain ROS, reason: unable to obtain Physical Exam Vital Signs: Vital Signs Temperature 101.5 F H 11/11/16 18:00 Pulse Rate 93 H 11/11/16 18:00 Respiratory Rate 22 11/11/16 19:21 Blood Pressure 90/55 11/11/16 18:00 O2 Sat by Pulse Oximetry (%) 100 11/11/16 10:51 Constitutional: Yes: Other Eyes: Yes: Conjunctiva Clear Cardiovascular: Yes: Regular Rate and Rhythm, Tachycardia Respiratory: Yes: Intubated, Mechanically Ventilated, Other (sedated) Gastrointestinal: Yes: Soft, Hypoactive Bowel Sounds Renal/: Yes: Lott Present Musculoskeletal: Yes: WNL Extremities: Yes: WNL Neurological: Yes: Other Labs: CBC, BMP 11/11/16 17:30 11/11/16 18:15 Imaging - Results Chest X-ray: Report Reviewed, Image Reviewed Assessment/Plan also because of her non compliance in controlling blood sugar,when the patient came in she was in diabetic acidosis Problem List - Problems (1) DKA (diabetic ketoacidoses) Code(s): E13.10 - OTH DIABETES MELLITUS WITH KETOACIDOSIS WITHOUT COMA Qualifiers: Diabetes mellitus type: type 1 Diabetes mellitus complication detail: with coma Qualified Code(s): E10.11 - Type 1 diabetes mellitus with ketoacidosis with coma (2) Metabolic encephalopathy Code(s): G93.41 - METABOLIC ENCEPHALOPATHY (3) Pneumonia Code(s): J18.9 - PNEUMONIA, UNSPECIFIED ORGANISM Qualifiers: Pneumonia type: due to unspecified organism Laterality: bilateral Lung location: upper lobe of lung Qualified Code(s): J18.9 - Pneumonia, unspecified organism (4) Respiratory failure with hypoxia Code(s): J96.91 - RESPIRATORY FAILURE, UNSPECIFIED WITH HYPOXIA Qualifiers: Chronicity: acute Qualified Code(s): J96.01 - Acute respiratory failure with hypoxia (5) Acute renal failure Code(s): N17.9 - ACUTE KIDNEY FAILURE, UNSPECIFIED Qualifiers: Acute renal failure type: unspecified Qualified Code(s): N17.9 - Acute kidney failure, unspecified (6) Diabetic gastroparesis associated with type 1 diabetes mellitus Code(s): E10.43 - TYPE 1 DIABETES W DIABETIC AUTONOMIC (POLY)NEUROPATHY K31.84 - GASTROPARESIS (7) Diabetic keto-acidosis Code(s): E13.10 - OTH DIABETES MELLITUS WITH KETOACIDOSIS WITHOUT COMA (8) High anion gap metabolic acidosis Code(s): E87.2 - ACIDOSIS (9) Lactic acid acidosis Code(s): E87.2 - ACIDOSIS (10) Renal failure (ARF), acute on chronic Code(s): N17.9 - ACUTE KIDNEY FAILURE, UNSPECIFIED N18.9 - CHRONIC KIDNEY DISEASE, UNSPECIFIED Assessment/Plan Acute Respiratory Failure Pneumonia Diabetic Ketoacidosis Severe Metabolic Acidosis Acute Kidney Injury Lactic Acidosis Noncompliance plan we will continue iv abx which were started patient spiking fever continue to monitor fevers hydration icu mgmt await for all cx reports continue supportive care cc time 55 min
[2016-11-11] MEDS: CHLORHEXIDINE GLUCONATE 0.12% 15ML CUP MM SCH (21:39)
[2016-11-11] MEDS: CHLORHEXIDINE GLUCONATE 4% CLEANSER FOR DECOLONIZATION TP SCH (21:44)
[2016-11-11 23:05] LABS: ALLENS TEST POSITIVE; ARTERIAL BLD GAS O2 SATURATION 95.8 % (90-98.9); ARTERIAL BLOOD GAS PO2 85.5 mmHg (80-100); ARTERIAL BLOOD GAS pH 7.26 (7.35-7.45); LPM/O2% 70%; MECH. VENT. YES; PT. ON O2? YES; TYPE OF O2 MECH VENT; VENT RATE 16; VT/PRESS 450
[2016-11-11 23:06] LABS: ARTERIAL BLOOD GAS HCO3 16.9 meq/L (22-26)
[2016-11-11] MEDS ORDERED: FUROSEMIDE 40 MG/4 ML INJECTABLE VIAL IVPUSH ONE (23:24)
[2016-11-11] MEDS ORDERED: VANCOMYCIN 750 MG in DEXTROSE 5%-WATER - 250 ML IVPB STA (23:55)
--- NOTE | 2016-11-12 00:01 | PN ---
Progress Note (short form) - Note Progress Note: Overnight event note: Called to bedside to see pt for decreasing saturations, vent dysnchrony/ increasing WOB, fever. On exam pt with very high MV of 15 liters (33/450), very labored despite A/C ventilation at 16. Increased RR to 24, Fio2 to 70%, and Peep increased to 10. On those settings ABG revealed worsening metabolic acidosis 7.28/38 (though lactate downtrending to 1.6). P/F ratio 121. CXR from day shows worsening diffuse bilateral infiltrates c/w ARDS. Will change to ARDSnet protocol ventilation to match MV. PBW is 54---> 6cc/kg ---325. Placed on PC ventilation due to dysynchrony on VC. Settings A/C PC 30/Pi /15 with TV 300-350. She is febrile to 102. Clinda and P/T were added today. Vanco was stopped after one dose on admission. I added back Vanco x 1. Will resend sputum, keep well sedated, and give dose of lasix (has 10L positive fluid balance) as she is not in shock and lactate improving. If deteriorates further will consider fungal coverage and carbapenem. CBC, BMP 11/11/16 17:30 11/11/16 18:15 ABG Results ABG pH 7.26 (7.35-7.45) L 11/11/16 22:53 ABG pCO2 at Pt Temp 38.6 mmHg (35-45) 11/11/16 22:53 ABG pO2 at Pt Temp 85.5 mmHg (80-100) D 11/11/16 22:53 ABG HCO3 16.9 meq/L (22-26) L 11/11/16 22:53 ABG O2 Sat (Measured) 95.8 % (90-98.9) 11/11/16 22:53 ABG O2 Content 12.1 % vol (15-22) L 11/11/16 22:53 ABG Base Excess -9.0 meq/l (-2-2) L 11/11/16 22:53 PE: Gen: sedated, intubated PULM: scattered rhonci, bronchial BS bilaterally CV; rrr, no m/r/g appreciated ABD: soft, NT, ND EXT: dependent edema, no rash NEURO: RASS -4. CXR Pending Hilario Powell ACN [id number] Critical Care Total Critical Care Time (in minutes): 35 Critical Care Statement: The care of this patient involved high complexity decision making to prevent further life threatening deterioration of the patient 's condition and/or to evalute & treat vital organ system(s) failure or risk of failure.
[2016-11-12] MEDS: FENTANYL INJECTION 500 MCG in DEXTROSE 5%-WATER - 90 ML IJ SCH ×2 (00:53→21:06)
[2016-11-12] MEDS: CLINDAMYCIN 600MG PREMIX IVPB 50 ML IVPB SCH ×3 (01:43→17:13)
[2016-11-12] MEDS: PHENYLEPHRINE HCL 20,000 MCG in SODIUM CHLORIDE 248 ML IVPB SCH (01:50)
[2016-11-12] MEDS ORDERED: PHENYLEPHRINE HCL 10 MG/1 ML SINGLE DOSE VIAL ONE ×5 (02:01→15:20)
[2016-11-12] MEDS: PIPERACILLIN/TAZOB 3.375 GM/50 ML PRE-DOCKED IVPB SCH ×3 (02:42→17:13)
[2016-11-12] MEDS: INSULIN SLIDING SCALE (NOVOLOG) 1 VIAL SQ SCH ×5 (04:29→21:14)
[2016-11-12 05:46] LABS: ALLENS TEST POSITIVE; ART PUNCT SITE RIGHT RADIAL; ARTERIAL BLOOD GAS BASE EXCESS -5.9 meq/l (-2-2); ARTERIAL BLOOD GAS pH 7.34 (7.35-7.45); LPM/O2% 70%; MECH. VENT. YES; PT. ON O2? YES; TYPE OF O2 MECH VENT; VENT RATE 30
[2016-11-12 05:47] LABS: ARTERIAL BLOOD GAS HCO3 18.8 meq/L (22-26)
[2016-11-12 06:26] LABS: BASOPHIL 0.5 % (0-2.0); MCH 30.8 pg (25.7-33.7); MCHC 32.2 g/dl (32.0-36.0); MEAN CELL VOLUME 95.5 fl (80-96); MEAN PLT VOLUME 9.1 fl (7.5-11.1); NEUTROPHILS 82.1 % (42.8-82.8); PLATELET COUNT 209 K/MM3 (134-434); RDW 14.7 % (11.6-15.6); WHITE BLOOD COUNT 18.3 K/mm3 (4.0-10.0)
[2016-11-12] MEDS ORDERED: PROPOFOL 100 ML ONE (06:26)
[2016-11-12 06:41] LABS: ALBUMIN 1.8 g/dl (3.4-5.0); ALK PHOS 171 U/L (45-117); ANION GAP 15 (8-16); BILIRUBIN,TOTAL 0.4 mg/dL (0.2-1.0); CALCIUM 7.1 mg/dL (8.5-10.1); CO2 19 mmol/L (21-32); CREATININE 0.9 mg/dL (0.55-1.02); GLUCOSE,RANDOM 230 mg/dL (74-106); PHOSPHOROUS 1.5 mg/dL (2.5-4.9); SGPT/ALT 32 U/L (12-78); TOT PROT 4.9 g/dl (6.4-8.2)
[2016-11-12] MEDS ORDERED: ACETAMINOPHEN 1000 MG/100 ML VIAL (NON FORMULARY) IVPB ONE (06:45)
[2016-11-12 06:57] LABS: SGOT/AST 82 U/L (15-37)
[2016-11-12] MEDS ORDERED: SODIUM CHLORIDE 1,000 ML IV STA (07:17)
--- NOTE | 2016-11-12 08:04 | PN ---
Physical Exam: SUBJECTIVE: Patient seen and examined at bedside. Intubated & sedated. Febrile overnight with increased RR and work of breathing. vents ettings adjusted to conform with ARDSnet protocol and patient has been saturating well this AM. CXR reviewed and shows improvement in bilateral infiltrates. OBJECTIVE: Vital Signs Period Temp Pulse Resp BP Sys/Rapp Pulse Ox Last 24 Hr 99.7 F-101.5 F 70-106 20-38 68-139/48-88 92-100 GENERAL: Intubated & sedated, resign comfortably once increased sedation HEENT: Atraumatic, EOMI, PERRLA, Moist membranes, no lymphadenopathy noted LUNGS: Moderate bibasilar crackles noted. No wheezing. HEART: Regular rate and rhythm, S1, S2 without murmur, rub or gallop. ABDOMEN: Soft, nontender, nondistended, normoactive bowel sounds EXTREMITIES: 2+ pulses, warm, well-perfused, trace edema bilateral upper extremity NEUROLOGICAL: Cranial nerves II through XII grossly intact. Gait and speech not observed. PSYCH: Unable to assess due to clinical condition. SKIN: Warm, dry, normal turgor, no rashes. Tattoos Laboratory Results 11/11/16 11/11/16 11/11/16 17:00 17:30 18:15 WBC 11.3 H RBC 2.86 L Hgb 8.8 L Hct 26.7 L MCV 93.4 MCHC 32.8 RDW 14.4 Plt Count 151 MPV 8.8 Neutrophils % 83.1 H Lymphocytes % 12.8 Monocytes % 1.8 L Eosinophils % 1.8 Basophils % 0.5 Puncture Site ABG pH ABG pCO2 at Pt Temp ABG pO2 at Pt Temp ABG HCO3 ABG O2 Sat (Measured) ABG O2 Content ABG Base Excess Atul Test O2 Delivery Device Oxygen Flow Rate Vent Mode Vent Rate Mechanical Rate PEEP Pressure Support Vent Sodium 146 H Potassium 3.8 Chloride 116 H Carbon Dioxide 21 Anion Gap 9 BUN 5 L D Creatinine 0.6 Creat Clearance w eGFR > 60 POC Glucometer Random Glucose 128 H Lactic Acid 2.436 H* Calcium 6.5 L* Phosphorus Total Bilirubin 0.2 AST 74 H D ALT 26 D Alkaline Phosphatase 116 Total Protein 4.0 L Albumin 1.6 L 11/11/16 11/11/16 11/11/16 21:25 21:35 22:29 WBC RBC Hgb Hct MCV MCHC RDW Plt Count MPV Neutrophils % Lymphocytes % Monocytes % Eosinophils % Basophils % Puncture Site ABG pH ABG pCO2 at Pt Temp ABG pO2 at Pt Temp ABG HCO3 ABG O2 Sat (Measured) ABG O2 Content ABG Base Excess Atul Test O2 Delivery Device Oxygen Flow Rate Vent Mode Vent Rate Mechanical Rate PEEP Pressure Support Vent Sodium Potassium Chloride Carbon Dioxide Anion Gap BUN Creatinine Creat Clearance w eGFR POC Glucometer > [phone] Random Glucose Lactic Acid 1.345 Calcium Phosphorus Total Bilirubin AST ALT Alkaline Phosphatase Total Protein Albumin 11/11/16 11/12/16 11/12/16 22:53 00:35 02:47 WBC RBC Hgb Hct MCV MCHC RDW Plt Count MPV Neutrophils % Lymphocytes % Monocytes % Eosinophils % Basophils % Puncture Site Md puncture ABG pH 7.26 L ABG pCO2 at Pt Temp 38.6 ABG pO2 at Pt Temp 85.5 D ABG HCO3 16.9 L ABG O2 Sat (Measured) 95.8 ABG O2 Content 12.1 L ABG Base Excess -9.0 L Atul Test Positive O2 Delivery Device Mech vent Oxygen Flow Rate 70% Vent Mode A/c Vent Rate 16 Mechanical Rate Yes PEEP 10.0 Pressure Support Vent 450 Sodium Potassium Chloride Carbon Dioxide Anion Gap BUN Creatinine Creat Clearance w eGFR POC Glucometer [phone] Random Glucose Lactic Acid Calcium Phosphorus Total Bilirubin AST ALT Alkaline Phosphatase Total Protein Albumin 11/12/16 11/12/16 11/12/16 04:28 05:10 05:10 WBC 18.3 H D RBC 3.17 L Hgb 9.8 L D Hct 30.3 L MCV 95.5 MCHC 32.2 RDW 14.7 Plt Count 209 D MPV 9.1 Neutrophils % 82.1 Lymphocytes % 13.0 Monocytes % 1.4 L Eosinophils % 3.0 Basophils % 0.5 Puncture Site ABG pH ABG pCO2 at Pt Temp ABG pO2 at Pt Temp ABG HCO3 ABG O2 Sat (Measured) ABG O2 Content ABG Base Excess Atul Test O2 Delivery Device Oxygen Flow Rate Vent Mode Vent Rate Mechanical Rate PEEP Pressure Support Vent Sodium 145 Potassium 4.1 Chloride 111 H Carbon Dioxide 19 L Anion Gap 15 BUN 6 L Creatinine 0.9 D Creat Clearance w eGFR > 60 POC Glucometer [phone] Random Glucose 230 H D Lactic Acid Calcium 7.1 L Phosphorus 1.5 L D Total Bilirubin 0.4 D AST 82 H ALT 32 D Alkaline Phosphatase 171 H D Total Protein 4.9 L D Albumin 1.8 L 11/12/16 11/12/16 11/12/16 05:10 05:43 06:38 WBC RBC Hgb Hct MCV MCHC RDW Plt Count MPV Neutrophils % Lymphocytes % Monocytes % Eosinophils % Basophils % Puncture Site Right radial ABG pH 7.34 L ABG pCO2 at Pt Temp 36.2 ABG pO2 at Pt Temp 325.0 H* ABG HCO3 18.8 L ABG O2 Sat (Measured) 100.0 H* ABG O2 Content 15.1 ABG Base Excess -5.9 L Atul Test Positive O2 Delivery Device Mech vent Oxygen Flow Rate 70% Vent Mode Pcv Vent Rate 30 Mechanical Rate Yes PEEP 15.0 Pressure Support Vent 10.0 Sodium Potassium Chloride Carbon Dioxide Anion Gap BUN Creatinine Creat Clearance w eGFR POC Glucometer [phone] Random Glucose Lactic Acid 3.946 H* Calcium Phosphorus Total Bilirubin AST ALT Alkaline Phosphatase Total Protein Albumin Active Medications Generic Name Dose Route Start Last Admin Trade Name Freq PRN Reason Stop Dose Admin Acetaminophen 650 mg 11/10/16 14:45 11/11/16 02:08 Tylenol - PO 650 mg Q4H PRN Administration FEVER OR PAIN Chlorhexidine Gluconate 1 applic 11/09/16 22:00 11/11/16 21:44 Hibiclens For Decolonization - TP 1 applic HS [facility] Administration Chlorhexidine Gluconate 15 ml 11/11/16 22:00 11/11/16 21:39 Peridex - MM 15 ml BID [facility] Administration Heparin Sodium (Porcine) 5,000 unit 11/10/16 22:00 11/11/16 21:38 Heparin - SQ 5,000 unit BID [facility] Administration Midazolam HCl 100 mg/ Sodium 100 mls @ 2 mls/hr 11/09/16 09:45 11/11/16 09:45 Chloride IVPB Not Given TITR [facility] Protocol 2 MG/HR Azithromycin 250 mls @ 250 mls/hr 11/09/16 13:30 11/11/16 09:09 Zithromax 500mg Ivpb (Pre-Docked) IVPB 250 mls/hr DAILY [facility] Administration Famotidine/Sodium Chloride 50 mls @ 100 mls/hr 11/09/16 22:00 11/11/16 21:37 Pepcid 20 Mg Premixed Ivpb - IVPB 100 mls/hr BID [facility] Administration Fentanyl 500 mcg/ Dextrose 100 mls @ 20 mls/hr 11/09/16 14:45 11/12/16 00:53 IJ 30 mls/hr TITR [facility] Administration 100 MCG/HR Propofol 100 mls @ 1.565 mls/hr 11/10/16 14:45 11/11/16 23:54 Diprivan - IVPB 9.389 mls/hr TITR [facility] Administration Protocol 5 MCG/KG/MIN Dextrose/Sodium Chloride 1,000 mls @ 100 mls/hr 11/10/16 21:00 11/11/16 21:40 D5-1/2ns+40 Meq Kcl - IV 100 mls/hr ASDIR [facility] Administration Clindamycin Phosphate 50 mls @ 100 mls/hr 11/12/16 02:00 11/12/16 01:43 Cleocin 600 Mg Premix Ivpb - IVPB 100 mls/hr Q8H-IV [facility] Administration Phenylephrine HCl 20,000 mcg/ 250 mls @ 75 mls/hr 11/12/16 02:00 11/12/16 05:37 Sodium Chloride IVPB 75 mcg/min ASDIR [facility] Titration Protocol 100 MCG/MIN Sodium Chloride 1,000 mls @ 1,000 mls/hr 11/12/16 07:17 11/12/16 07:58 Normal Saline - IV 11/12/16 08:16 1,000 mls/hr ASDIR [facility] Administration Insulin Aspart 1 vial 11/11/16 11:00 11/12/16 06:39 Novolog Vial Sliding Scale - SQ 2 units ACHS [facility] Administration Protocol Mupirocin 1 applic 11/09/16 22:00 11/11/16 21:39 Bactroban Ointment (For Decolonization) - NS 11/14/16 21:59 1 applic BID [facility] Administration Piperacillin Sod/Tazobactam Sod 3.375 gm 11/10/16 11:30 11/12/16 02:42 Zosyn 3.375gm Ivpb (Pre-Docked) IVPB 3.375 gm Q8H-IV [facility] Administration Protocol ASSESSMENT/PLAN: 46 year old female with significant PMH of IDDM w/ poor compliance and multiple visits for DKA/Gastroparesis & chronic opioid use for back pain who presented to ED with severe DKA & mixed severe metabolic acidosis with positive ketones and positive lactate 6 after 1 week of not taking insulin. Chest xray was notable for right mid lung infiltrate/pnemonia with WBC severely elevated. #Acute Hypoxemic Respiratory Failure, ARDS in setting of Pneumonia -intubated & sedated on Fentanyl/Versed/Propofol (Vent settings changed overnight according to ARDSnet protocol) -Clindamycin day 2 -Zosyn day 3 -Azithromycin day 4 -IVF D5-1/2NS w/ 40mEq KCl @100ml/hr -cultures (-), urine antigens (-) thus far; recultured last night during fever spike -Lactate elevated this AM 3.9, given IVF bolus and will recheck this afternoon -ID consult appreciated -CXR reviewed #DKA w/ severe metabolic acidosis -anion gap closed -insulin drip was discontinued, currently on Sliding scale Insulin -BGM Q6H #GIANCARLO -resolved -avoid nephrotoxic meds -continue to monitor kidney function #Electrolytes abnormalities -will replete Ca, Phosphorus & Magnesium -potassium repletion via IVF supplementation -continue to monitor Prophylaxis -Heparin 5000BID -Pepcid BID -IVF, as above -monitor electrolytes -Tube Feeding started, Osmolyte 1/2 Visit type - Emergency Visit Emergency Visit: Yes ED Registration Date: 11/09/16 Care time: The patient presented to the Emergency Department on the above date and was hospitalized for further evaluation of their emergent condition. - New Patient This patient is new to me today: No - Critical Care Critical Care patient: Yes Total Critical Care Time (in minutes): 50 Critical Care Statement: The care of this patient involved high complexity decision making to prevent further life threatening deterioration of the patient 's condition and/or to evalute & treat vital organ system(s) failure or risk of failure.
[2016-11-12] MEDS: AZITHROMYCIN IVPB 250 ML IVPB SCH (09:38)
[2016-11-12] MEDS: CHLORHEXIDINE GLUCONATE 0.12% 15ML CUP MM SCH ×2 (09:40→21:04)
[2016-11-12] MEDS: HEPARIN NA (PORCINE) 5,000 UNITS/ML 1ML VIAL SQ SCH ×2 (09:41→21:03)
[2016-11-12] MEDS: MUPIROCIN 2% TOPICAL OINTMENT FOR DECOLONIZATION NS SCH ×2 (09:41→21:07)
[2016-11-12] MEDS: FAMOTIDINE 20 MG/50 ML IVPB 50 ML IVPB SCH ×2 (10:04→21:05)
--- NOTE | 2016-11-12 10:49 | PN ---
Physical Exam: SUBJECTIVE: Patient seen and examined. Sedated/intubated on propofol, fentanyl and versed. OBJECTIVE: persistent lactic acidosis 1.3>3.9 despite fluid boluses of NS Will continue to trend WBC elevated 11>18, blood cultures ordered Given vanco overnight Caspofungin IV added by ID On Clindamycin and Zosyn Patient will need a central line placed Vital Signs Period Temp Pulse Resp BP Sys/Rapp Pulse Ox Last 24 Hr 99.7 F-101.5 F 70-94 20-38 68-139/48-71 92-100 GENERAL: sedated, intubated HEAD: Normal with no signs of trauma. EYES: PERRL, extraocular movements intact, sclera anicteric, conjunctiva clear. No ptosis. ENT: Ears normal, nares patent, oropharynx clear without exudates, moist mucous membranes. NECK: Trachea midline, full range of motion, supple. LUNGS: anterior lung sounds clear HEART: Regular rate and rhythm, ABDOMEN: Soft, nontender, nondistended, normoactive bowel sounds EXTREMITIES: bilateral hands with non pitting NEUROLOGICAL: sedated, appears anxious despite sedation PSYCH: Normal mood, normal affect. SKIN: Warm, dry, normal turgor, no rashes or lesions noted Laboratory Results - last 24 hr 11/11/16 11/11/16 11/11/16 08:42 12:33 12:55 WBC RBC Hgb Hct MCV MCHC RDW Plt Count MPV Neutrophils % Lymphocytes % Monocytes % Eosinophils % Basophils % Puncture Site ABG pH ABG pCO2 at Pt Temp ABG pO2 at Pt Temp ABG HCO3 ABG O2 Sat (Measured) ABG O2 Content ABG Base Excess Atul Test O2 Delivery Device Oxygen Flow Rate Vent Mode Vent Rate Mechanical Rate PEEP Pressure Support Vent Sodium Potassium Chloride Carbon Dioxide Anion Gap BUN Creatinine Creat Clearance w eGFR POC Glucometer [phone] Random Glucose Lactic Acid 4.922 H* Calcium Phosphorus Total Bilirubin AST ALT Alkaline Phosphatase Total Protein Albumin 11/11/16 11/11/16 11/11/16 16:41 17:00 17:30 WBC 11.3 H RBC 2.86 L Hgb 8.8 L Hct 26.7 L MCV 93.4 MCHC 32.8 RDW 14.4 Plt Count 151 MPV 8.8 Neutrophils % 83.1 H Lymphocytes % 12.8 Monocytes % 1.8 L Eosinophils % 1.8 Basophils % 0.5 Puncture Site ABG pH ABG pCO2 at Pt Temp ABG pO2 at Pt Temp ABG HCO3 ABG O2 Sat (Measured) ABG O2 Content ABG Base Excess Atul Test O2 Delivery Device Oxygen Flow Rate Vent Mode Vent Rate Mechanical Rate PEEP Pressure Support Vent Sodium Potassium Chloride Carbon Dioxide Anion Gap BUN Creatinine Creat Clearance w eGFR POC Glucometer 170.16163 Random Glucose Lactic Acid 2.436 H* Calcium Phosphorus Total Bilirubin AST ALT Alkaline Phosphatase Total Protein Albumin 11/11/16 11/11/16 11/11/16 18:15 21:25 21:35 WBC RBC Hgb Hct MCV MCHC RDW Plt Count MPV Neutrophils % Lymphocytes % Monocytes % Eosinophils % Basophils % Puncture Site ABG pH ABG pCO2 at Pt Temp ABG pO2 at Pt Temp ABG HCO3 ABG O2 Sat (Measured) ABG O2 Content ABG Base Excess Atul Test O2 Delivery Device Oxygen Flow Rate Vent Mode Vent Rate Mechanical Rate PEEP Pressure Support Vent Sodium 146 H Potassium 3.8 Chloride 116 H Carbon Dioxide 21 Anion Gap 9 BUN 5 L D Creatinine 0.6 Creat Clearance w eGFR > 60 POC Glucometer > 400 Random Glucose 128 H Lactic Acid 1.345 Calcium 6.5 L* Phosphorus Total Bilirubin 0.2 AST 74 H D ALT 26 D Alkaline Phosphatase 116 Total Protein 4.0 L Albumin 1.6 L 11/11/16 11/11/16 11/12/16 22:29 22:53 00:35 WBC RBC Hgb Hct MCV MCHC RDW Plt Count MPV Neutrophils % Lymphocytes % Monocytes % Eosinophils % Basophils % Puncture Site Md puncture ABG pH 7.26 L ABG pCO2 at Pt Temp 38.6 ABG pO2 at Pt Temp 85.5 D ABG HCO3 16.9 L ABG O2 Sat (Measured) 95.8 ABG O2 Content 12.1 L ABG Base Excess -9.0 L Atul Test Positive O2 Delivery Device Mech vent Oxygen Flow Rate 70% Vent Mode A/c Vent Rate 16 Mechanical Rate Yes PEEP 10.0 Pressure Support Vent 450 Sodium Potassium Chloride Carbon Dioxide Anion Gap BUN Creatinine Creat Clearance w eGFR POC Glucometer 340.15107 243.91284 Random Glucose Lactic Acid Calcium Phosphorus Total Bilirubin AST ALT Alkaline Phosphatase Total Protein Albumin 11/12/16 11/12/16 11/12/16 02:47 04:28 05:10 WBC 18.3 H D RBC 3.17 L Hgb 9.8 L D Hct 30.3 L MCV 95.5 MCHC 32.2 RDW 14.7 Plt Count 209 D MPV 9.1 Neutrophils % 82.1 Lymphocytes % 13.0 Monocytes % 1.4 L Eosinophils % 3.0 Basophils % 0.5 Puncture Site ABG pH ABG pCO2 at Pt Temp ABG pO2 at Pt Temp ABG HCO3 ABG O2 Sat (Measured) ABG O2 Content ABG Base Excess Atul Test O2 Delivery Device Oxygen Flow Rate Vent Mode Vent Rate Mechanical Rate PEEP Pressure Support Vent Sodium Potassium Chloride Carbon Dioxide Anion Gap BUN Creatinine Creat Clearance w eGFR POC Glucometer [phone] Random Glucose Lactic Acid Calcium Phosphorus Total Bilirubin AST ALT Alkaline Phosphatase Total Protein Albumin 11/12/16 11/12/16 11/12/16 05:10 05:10 05:43 WBC RBC Hgb Hct MCV MCHC RDW Plt Count MPV Neutrophils % Lymphocytes % Monocytes % Eosinophils % Basophils % Puncture Site Right radial ABG pH 7.34 L ABG pCO2 at Pt Temp 36.2 ABG pO2 at Pt Temp 325.0 H* ABG HCO3 18.8 L ABG O2 Sat (Measured) 100.0 H* ABG O2 Content 15.1 ABG Base Excess -5.9 L Atul Test Positive O2 Delivery Device Mech vent Oxygen Flow Rate 70% Vent Mode Pcv Vent Rate 30 Mechanical Rate Yes PEEP 15.0 Pressure Support Vent 10.0 Sodium 145 Potassium 4.1 Chloride 111 H Carbon Dioxide 19 L Anion Gap 15 BUN 6 L Creatinine 0.9 D Creat Clearance w eGFR > 60 POC Glucometer Random Glucose 230 H D Lactic Acid 3.946 H* Calcium 7.1 L Phosphorus 1.5 L D Total Bilirubin 0.4 D AST 82 H ALT 32 D Alkaline Phosphatase 171 H D Total Protein 4.9 L D Albumin 1.8 L 11/12/16 06:38 WBC RBC Hgb Hct MCV MCHC RDW Plt Count MPV Neutrophils % Lymphocytes % Monocytes % Eosinophils % Basophils % Puncture Site ABG pH ABG pCO2 at Pt Temp ABG pO2 at Pt Temp ABG HCO3 ABG O2 Sat (Measured) ABG O2 Content ABG Base Excess Atul Test O2 Delivery Device Oxygen Flow Rate Vent Mode Vent Rate Mechanical Rate PEEP Pressure Support Vent Sodium Potassium Chloride Carbon Dioxide Anion Gap BUN Creatinine Creat Clearance w eGFR POC Glucometer 210.02899 Random Glucose Lactic Acid Calcium Phosphorus Total Bilirubin AST ALT Alkaline Phosphatase Total Protein Albumin Active Medications Generic Name Dose Route Start Last Admin Trade Name [place] PRN Reason Stop Dose Admin Acetaminophen 650 mg 11/10/16 14:45 11/11/16 02:08 Tylenol - PO 650 mg Q4H PRN Administration FEVER OR PAIN Chlorhexidine Gluconate 1 applic 11/09/16 22:00 11/11/16 21:44 Hibiclens For Decolonization - TP 1 applic HS [facility] Administration Chlorhexidine Gluconate 15 ml 11/11/16 22:00 11/12/16 09:40 Peridex - MM 15 ml BID [facility] Administration Heparin Sodium (Porcine) 5,000 unit 11/10/16 22:00 11/12/16 09:41 Heparin - SQ 5,000 unit BID [facility] Administration Midazolam HCl 100 mg/ Sodium 100 mls @ 2 mls/hr 11/09/16 09:45 11/11/16 09:45 Chloride IVPB Not Given TITR [facility] Protocol 2 MG/HR Azithromycin 250 mls @ 250 mls/hr 11/09/16 13:30 11/12/16 09:38 Zithromax 500mg Ivpb (Pre-Docked) IVPB 250 mls/hr DAILY [facility] Administration Famotidine/Sodium Chloride 50 mls @ 100 mls/hr 11/09/16 22:00 11/12/16 10:04 Pepcid 20 Mg Premixed Ivpb - IVPB 100 mls/hr BID [facility] Administration Fentanyl 500 mcg/ Dextrose 100 mls @ 20 mls/hr 11/09/16 14:45 11/12/16 00:53 IJ 30 mls/hr TITR [facility] Administration 100 MCG/HR Propofol 100 mls @ 1.565 mls/hr 11/10/16 14:45 11/11/16 23:54 Diprivan - IVPB 9.389 mls/hr TITR [facility] Administration Protocol 5 MCG/KG/MIN Dextrose/Sodium Chloride 1,000 mls @ 100 mls/hr 11/10/16 21:00 11/11/16 21:40 D5-1/2ns+40 Meq Kcl - IV 100 mls/hr ASDIR [facility] Administration Clindamycin Phosphate 50 mls @ 100 mls/hr 11/12/16 02:00 11/12/16 10:04 Cleocin 600 Mg Premix Ivpb - IVPB 100 mls/hr Q8H-IV [facility] Administration Phenylephrine HCl 20,000 mcg/ 250 mls @ 75 mls/hr 11/12/16 02:00 11/12/16 05:37 Sodium Chloride IVPB 75 mcg/min ASDIR [facility] Titration Protocol 100 MCG/MIN Insulin Aspart 1 vial 11/11/16 11:00 11/12/16 06:39 Novolog Vial Sliding Scale - SQ 2 units ACHS [facility] Administration Protocol Mupirocin 1 applic 11/09/16 22:00 11/12/16 09:41 Bactroban Ointment (For Decolonization) - NS 11/14/16 21:59 1 applic BID [facility] Administration Piperacillin Sod/Tazobactam Sod 3.375 gm 11/10/16 11:30 11/12/16 09:50 Zosyn 3.375gm Ivpb (Pre-Docked) IVPB 3.375 gm Q8H-IV [facility] Administration Protocol ASSESSMENT/PLAN: Patient is a 46 year old female with a significant past medical history of IDDM with non compliance, DKA, gastroparesis and polysubstance abuse. She presented to the ED on complaints of nausea and vomiting and was found to be in severe DKA with a glucose greater than 1000, severe metabolic acidosis with positive ketones, WBC on admission was 28.8 with lactic acidosis at 6.4. She was admitted to the ICU and was intubated. ID: Severe Sepsis secondary to Pneumonia with acute hypoxemic respiratory failure - acute Assessment/Plan: Lactic acidosis on admission 6.4, despite fluid boluses, lactic acid remains elevated WBC trending up Continue to bolus saline and repeat lactic acid levels q4 for improvement On antibiotics of Zosyn since 11/10, Azithromycin d/cd and Clindamycin added on Started on Caspofungin today Repeat blood culture and urine culture pending She is sedated with versed, propofol, and fentanyl for agitation, trials of weaning ongoing Echo ordered to rule out endocarditis Renal: GIANCARLO in the setting of sepsis - resolved Assessment/Plan: Creatinine 3.3>0.7 Now resolved, monitor with BMP Endocrine: DKA/IDDM/with severe hyperglycemia on admission Assessment/Plan: On sliding scale, monitor Hematology: Anemia - acute Assessment/Plan: likely dilutional Monitor CBC F.E.N. Fluids: numerous fluid boluses of NS for lactic acidosis On maintenance fluids D5 1/2 NS 40MEQ @ 100cc/hr Electrolytes: monitor with daily bmp Nutrition: NPO - intubated/sedated Prophylaxis: GI: On pepcid DVT: SCDs, Heparin BID Disposition: Critically ill, requires ICU monitoring. Full Code. Visit type - Emergency Visit Emergency Visit: Yes ED Registration Date: 11/09/16 Care time: The patient presented to the Emergency Department on the above date and was hospitalized for further evaluation of their emergent condition. - New Patient This patient is new to me today: No - Critical Care Critical Care patient: Yes Total Critical Care Time (in minutes): 60 Critical Care Statement: The care of this patient involved high complexity decision making to prevent further life threatening deterioration of the patient 's condition and/or to evalute & treat vital organ system(s) failure or risk of failure. - Discharge Referral Referred to [facility] No
--- NOTE | 2016-11-12 12:25 | PN ---
Teaching Attending Note Name of Resident: Chema Alston ATTENDING PHYSICIAN STATEMENT I saw and evaluated the patient. I reviewed the resident's note and discussed the case with the resident. I agree with the resident's findings and plan as documented. SUBJECTIVE: Pt seen and examined in the ICU. Remains intubated, sedated, febrile. Ventilation changed to pressure control overnight. Started on phenylephrine gtt. OBJECTIVE: Last Vital Signs Temp Pulse Resp BP Pulse Ox 101.4 F H 71 37 H 106/53 99 11/12/16 11:00 11/12/16 11:00 11/12/16 12:05 11/12/16 11:00 11/12/16 10:00 Intake & Output 11/09/16 11/10/16 11/11/16 11/12/16 23:59 23:59 23:59 23:59 Intake Total 9681 5220.9 5526 2371.6 Output Total 3650 2150 5000 2100 Balance 6031 3070.9 526 271.6 Weight 115 lb Gen: intubated, sedated Heart: RRR Lung: scattered rhonchi Abd: soft, nontender Ext: + edema CBC, BMP 11/12/16 05:10 11/12/16 05:10 ABG Results ABG pH 7.34 (7.35-7.45) L 11/12/16 05:43 ABG pCO2 at Pt Temp 36.2 mmHg (35-45) 11/12/16 05:43 ABG pO2 at Pt Temp 325.0 mmHg (80-100) H* 11/12/16 05:43 ABG HCO3 18.8 meq/L (22-26) L 11/12/16 05:43 ABG O2 Sat (Measured) 100.0 % (90-98.9) H* 11/12/16 05:43 ABG O2 Content 15.1 % vol (15-22) 11/12/16 05:43 ABG Base Excess -5.9 meq/l (-2-2) L 11/12/16 05:43 Active Medications Acetaminophen (Tylenol -) 650 mg PO Q4H PRN PRN Reason: FEVER OR PAIN Last Admin: 11/11/16 02:08 Dose: 650 mg Albuterol/Ipratropium (Duoneb -) 1 amp NEB Q6H PRN PRN Reason: SHORTNESS OF BREATH Chlorhexidine Gluconate (Hibiclens For Decolonization -) 1 applic TP HS [facility] Last Admin: 11/11/16 21:44 Dose: 1 applic Chlorhexidine Gluconate (Peridex -) 15 ml MM BID [facility] Last Admin: 11/12/16 09:40 Dose: 15 ml Heparin Sodium (Porcine) (Heparin -) 5,000 unit SQ BID [facility] Last Admin: 11/12/16 09:41 Dose: 5,000 unit Midazolam HCl 100 mg/ Sodium (Chloride) 100 mls @ 2 mls/hr IVPB TITR [facility]; 2 MG/ HR PRN Reason: Protocol Last Admin: 11/11/16 09:45 Dose: Not Given Azithromycin (Zithromax 500mg Ivpb (Pre-Docked)) 250 mls @ 250 mls/hr IVPB DAILY [facility] Last Admin: 11/12/16 09:38 Dose: 250 mls/hr Famotidine/Sodium Chloride (Pepcid 20 Mg Premixed Ivpb -) 50 mls @ 100 mls/hr IVPB BID [facility] Last Admin: 11/12/16 10:04 Dose: 100 mls/hr Fentanyl 500 mcg/ Dextrose 100 mls @ 20 mls/hr IJ TITR [facility] PRN Reason: 100 MCG/HR Last Admin: 11/12/16 00:53 Dose: 30 mls/hr Propofol (Diprivan -) 100 mls @ 1.565 mls/hr IVPB TITR [facility]; 5 MCG/KG/MIN PRN Reason: Protocol Last Admin: 11/11/16 23:54 Dose: 9.389 mls/hr Dextrose/Sodium Chloride (D5-1/2ns+40 Meq Kcl -) 1,000 mls @ 100 mls/hr IV ASDIR [facility] Last Admin: 11/11/16 21:40 Dose: 100 mls/hr Clindamycin Phosphate (Cleocin 600 Mg Premix Ivpb -) 50 mls @ 100 mls/hr IVPB Q8H-IV [facility] Last Admin: 11/12/16 10:04 Dose: 100 mls/hr Phenylephrine HCl 20,000 mcg/ (Sodium Chloride) 250 mls @ 75 mls/hr IVPB ASDIR [facility]; 100 MCG/MIN PRN Reason: Protocol Last Titration: 11/12/16 05:37 Dose: 75 mcg/min Insulin Aspart (Novolog Vial Sliding Scale -) 1 vial SQ ACHS [facility] PRN Reason: Protocol Last Admin: 11/12/16 06:39 Dose: 2 units Mupirocin (Bactroban Ointment (For Decolonization) -) 1 applic NS BID [facility] Stop: 11/14/16 21:59 Last Admin: 11/12/16 09:41 Dose: 1 applic Piperacillin Sod/Tazobactam Sod (Zosyn 3.375gm Ivpb (Pre-Docked)) 3.375 gm IVPB Q8H-IV [facility] PRN Reason: Protocol Last Admin: 11/12/16 09:50 Dose: 3.375 gm ASSESSMENT AND PLAN: Acute Respiratory Failure Pneumonia ARDS resolving Diabetic Ketoacidosis resolving Metabolic Acidosis Acute Kidney Injury Lactic Acidosis Noncompliance - glucose control - continue IVF - adjusted vent settings - continue antibiotics per ID - f/u cultures - monitor urine output, creatinine - replete lytes - trend lactate - sedate for vent synchrony - start inhaled bronchodilators as obstructive flows noted on vent - lighten sedation in AM to assess mental status - start spontaneous breathing trials when mental status improved - NPO - DVT/GI prophyalxis - continue ICU monitoring critical care time spent in reviewing chart, evaluating patient and formulating plan 38 min Problem List - Problems (1) DKA (diabetic ketoacidoses) Code(s): E13.10 - OTH DIABETES MELLITUS WITH KETOACIDOSIS WITHOUT COMA Qualifiers: Diabetes mellitus type: type 1 Diabetes mellitus complication detail: with coma Qualified Code(s): E10.11 - Type 1 diabetes mellitus with ketoacidosis with coma (2) Metabolic encephalopathy Code(s): G93.41 - METABOLIC ENCEPHALOPATHY (3) Pneumonia Code(s): J18.9 - PNEUMONIA, UNSPECIFIED ORGANISM Qualifiers: Pneumonia type: due to unspecified organism Laterality: bilateral Lung location: upper lobe of lung Qualified Code(s): J18.9 - Pneumonia, unspecified organism (4) Respiratory failure with hypoxia Code(s): J96.91 - RESPIRATORY FAILURE, UNSPECIFIED WITH HYPOXIA Qualifiers: Chronicity: acute Qualified Code(s): J96.01 - Acute respiratory failure with hypoxia (5) Acute renal failure Code(s): N17.9 - ACUTE KIDNEY FAILURE, UNSPECIFIED Qualifiers: Acute renal failure type: unspecified Qualified Code(s): N17.9 - Acute kidney failure, unspecified (6) Diabetic gastroparesis associated with type 1 diabetes mellitus Code(s): E10.43 - TYPE 1 DIABETES W DIABETIC AUTONOMIC (POLY)NEUROPATHY K31.84 - GASTROPARESIS (7) Diabetic keto-acidosis Code(s): E13.10 - OTH DIABETES MELLITUS WITH KETOACIDOSIS WITHOUT COMA (8) High anion gap metabolic acidosis Code(s): E87.2 - ACIDOSIS (9) Lactic acid acidosis Code(s): E87.2 - ACIDOSIS (10) Renal failure (ARF), acute on chronic Code(s): N17.9 - ACUTE KIDNEY FAILURE, UNSPECIFIED N18.9 - CHRONIC KIDNEY DISEASE, UNSPECIFIED
[2016-11-12] MEDS ORDERED: FLUCONAZOLE 200 MG/D5W 100 ML IVPB SCH (14:15)
[2016-11-12] MEDS ORDERED: CASPOFUNGIN ACETATE 70 MG in SODIUM CHLORIDE 250 ML IVPB ONE (14:45)
[2016-11-12] MEDS: MIDAZOLAM 100 MG in SODIUM CHLORIDE 100 ML IVPB SCH (16:43)
[2016-11-12] MEDS: PROPOFOL 100 ML IVPB SCH ×2 (16:44→21:08)
[2016-11-12] MEDS: D5-1/2NS+40 MEQ KCL - 1,000 ML IV SCH (21:06)
[2016-11-12] MEDS: CHLORHEXIDINE GLUCONATE 4% CLEANSER FOR DECOLONIZATION TP SCH (21:07)
[2016-11-12] MEDS ORDERED: SODIUM CHLORIDE 500 ML IV STA (22:28)
--- NOTE | 2016-11-12 23:23 | PN ---
Progress Note, Physician History of Present Illness: intubated sedated patient stabilizing still with fevers - Current Medication List Current Medications: Active Medications Acetaminophen (Tylenol -) 650 mg PO Q4H PRN PRN Reason: FEVER OR PAIN Last Admin: 11/11/16 02:08 Dose: 650 mg Albuterol/Ipratropium (Duoneb -) 1 amp NEB Q6H PRN PRN Reason: SHORTNESS OF BREATH Chlorhexidine Gluconate (Hibiclens For Decolonization -) 1 applic TP HS [facility] Last Admin: 11/12/16 21:07 Dose: 1 applic Chlorhexidine Gluconate (Peridex -) 15 ml MM BID [facility] Last Admin: 11/12/16 21:04 Dose: 15 ml Heparin Sodium (Porcine) (Heparin -) 5,000 unit SQ BID [facility] Last Admin: 11/12/16 21:03 Dose: 5,000 unit Midazolam HCl 100 mg/ Sodium (Chloride) 100 mls @ 2 mls/hr IVPB TITR [facility]; 2 MG/ HR PRN Reason: Protocol Last Admin: 11/12/16 16:43 Dose: 6 mls/hr Azithromycin (Zithromax 500mg Ivpb (Pre-Docked)) 250 mls @ 250 mls/hr IVPB DAILY [facility] Last Admin: 11/12/16 09:38 Dose: 250 mls/hr Famotidine/Sodium Chloride (Pepcid 20 Mg Premixed Ivpb -) 50 mls @ 100 mls/hr IVPB BID [facility] Last Admin: 11/12/16 21:05 Dose: 100 mls/hr Fentanyl 500 mcg/ Dextrose 100 mls @ 20 mls/hr IJ TITR [facility] PRN Reason: 100 MCG/HR Last Admin: 11/12/16 21:06 Dose: 20 mls/hr Propofol (Diprivan -) 100 mls @ 1.565 mls/hr IVPB TITR [facility]; 5 MCG/KG/MIN PRN Reason: Protocol Last Admin: 11/12/16 21:08 Dose: 9.389 mls/hr Dextrose/Sodium Chloride (D5-1/2ns+40 Meq Kcl -) 1,000 mls @ 100 mls/hr IV ASDIR [facility] Last Admin: 11/12/16 21:06 Dose: 100 mls/hr Clindamycin Phosphate (Cleocin 600 Mg Premix Ivpb -) 50 mls @ 100 mls/hr IVPB Q8H-IV [facility] Last Admin: 11/12/16 17:13 Dose: 100 mls/hr Phenylephrine HCl 20,000 mcg/ (Sodium Chloride) 250 mls @ 75 mls/hr IVPB ASDIR [facility]; 100 MCG/MIN PRN Reason: Protocol Last Titration: 11/12/16 05:37 Dose: 75 mcg/min Caspofungin 50 mg/ Sodium (Chloride) 250 mls @ 250 mls/hr IVPB DAILY [facility] Sodium Chloride (Normal Saline -) 500 mls @ 500 mls/hr IV [facility] Stop: 11/12/16 23:27 Insulin Aspart (Novolog Vial Sliding Scale -) 1 vial SQ ACHS [facility] PRN Reason: Protocol Last Admin: 11/12/16 21:14 Dose: Not Given Mupirocin (Bactroban Ointment (For Decolonization) -) 1 applic NS BID [facility] Stop: 11/14/16 21:59 Last Admin: 11/12/16 21:07 Dose: 1 applic Piperacillin Sod/Tazobactam Sod (Zosyn 3.375gm Ivpb (Pre-Docked)) 3.375 gm IVPB Q8H-IV [facility] PRN Reason: Protocol Last Admin: 11/12/16 17:13 Dose: 3.375 gm - Objective Vital Signs: Vital Signs Temperature 99.9 F H 11/12/16 21:00 Pulse Rate 59 L 11/12/16 21:00 Respiratory Rate 34 H 11/12/16 21:45 Blood Pressure 100/68 11/12/16 21:00 O2 Sat by Pulse Oximetry (%) 100 11/12/16 21:34 Constitutional: Yes: Other Respiratory: Yes: Intubated, Mechanically Ventilated Gastrointestinal: Yes: Normal Bowel Sounds, Soft Musculoskeletal: Yes: WNL Extremities: Yes: WNL Neurological: Yes: Other Psychiatric: Yes: Other Labs: CBC, BMP 11/12/16 05:10 11/12/16 05:10 INR, PTT INR 1.07 (0.82-1.09) 11/09/16 06:54 - ....Imaging Chest X-ray: Report Reviewed, Image Reviewed Assessment/Plan also because of her non compliance in controlling blood sugar,when the patient came in she was in diabetic acidosis Problem List - Problems (1) DKA (diabetic ketoacidoses) Code(s): E13.10 - OTH DIABETES MELLITUS WITH KETOACIDOSIS WITHOUT COMA Qualifiers: Diabetes mellitus type: type 1 Diabetes mellitus complication detail: with coma Qualified Code(s): E10.11 - Type 1 diabetes mellitus with ketoacidosis with coma (2) Metabolic encephalopathy Code(s): G93.41 - METABOLIC ENCEPHALOPATHY (3) Pneumonia Code(s): J18.9 - PNEUMONIA, UNSPECIFIED ORGANISM Qualifiers: Pneumonia type: due to unspecified organism Laterality: bilateral Lung location: upper lobe of lung Qualified Code(s): J18.9 - Pneumonia, unspecified organism (4) Respiratory failure with hypoxia Code(s): J96.91 - RESPIRATORY FAILURE, UNSPECIFIED WITH HYPOXIA Qualifiers: Chronicity: acute Qualified Code(s): J96.01 - Acute respiratory failure with hypoxia (5) Acute renal failure Code(s): N17.9 - ACUTE KIDNEY FAILURE, UNSPECIFIED Qualifiers: Acute renal failure type: unspecified Qualified Code(s): N17.9 - Acute kidney failure, unspecified (6) Diabetic gastroparesis associated with type 1 diabetes mellitus Code(s): E10.43 - TYPE 1 DIABETES W DIABETIC AUTONOMIC (POLY)NEUROPATHY K31.84 - GASTROPARESIS (7) Diabetic keto-acidosis Code(s): E13.10 - OTH DIABETES MELLITUS WITH KETOACIDOSIS WITHOUT COMA (8) High anion gap metabolic acidosis Code(s): E87.2 - ACIDOSIS (9) Lactic acid acidosis Code(s): E87.2 - ACIDOSIS (10) Renal failure (ARF), acute on chronic Code(s): N17.9 - ACUTE KIDNEY FAILURE, UNSPECIFIED N18.9 - CHRONIC KIDNEY DISEASE, UNSPECIFIED Assessment/Plan Acute Respiratory Failure Pneumonia Diabetic Ketoacidosis Severe Metabolic Acidosis Acute Kidney Injury Lactic Acidosis Noncompliance plan contiue current mgmt patient spiking fever continue to monitor fevers if continues to spike will add antifungal hydration icu mgmt await for all cx reports continue supportive care cc time 40 min
[2016-11-13] MEDS: ALBUTEROL SO4 2.5/IPRATROPIUM 0.5 INH SOL 3 ML VIAL.NEB. NEB PRN
[2016-11-13] MEDS ORDERED: PHENYLEPHRINE HCL 10 MG/1 ML SINGLE DOSE VIAL ONE ×3 (00:41→19:48)
[2016-11-13] MEDS: PHENYLEPHRINE HCL 20,000 MCG in SODIUM CHLORIDE 248 ML IVPB SCH ×2 (01:00→20:30)
[2016-11-13] MEDS: FENTANYL INJECTION 500 MCG in DEXTROSE 5%-WATER - 90 ML IJ SCH ×4 (01:10→15:12)
[2016-11-13] MEDS: PIPERACILLIN/TAZOB 3.375 GM/50 ML PRE-DOCKED IVPB SCH ×3 (01:29→17:54)
[2016-11-13] MEDS: CLINDAMYCIN 600MG PREMIX IVPB 50 ML IVPB SCH ×3 (01:29→17:55)
[2016-11-13] MEDS: D5-1/2NS+40 MEQ KCL - 1,000 ML IV SCH ×2 (04:00→15:46)
[2016-11-13 06:25] LABS: BASOPHIL 0.4 % (0-2.0); MCH 30.9 pg (25.7-33.7); MCHC 32.4 g/dl (32.0-36.0); MEAN CELL VOLUME 95.4 fl (80-96); MEAN PLT VOLUME 9.3 fl (7.5-11.1); NEUTROPHILS 77.5 % (42.8-82.8); PLATELET COUNT 219 K/MM3 (134-434); RDW 14.8 % (11.6-15.6); WHITE BLOOD COUNT 13.6 K/mm3 (4.0-10.0)
[2016-11-13] MEDS: INSULIN SLIDING SCALE (NOVOLOG) 1 VIAL SQ SCH ×4 (06:35→22:06)
[2016-11-13 06:51] LABS: ALBUMIN 1.6 g/dl (3.4-5.0); ANION GAP 13 (8-16); CO2 20 mmol/L (21-32); GLUCOSE,RANDOM 261 mg/dL (74-106); MAGNESIUM 2.3 mg/dL (1.8-2.4)
[2016-11-13 06:55] LABS: ALK PHOS 214 U/L (45-117); BILIRUBIN,TOTAL 0.8 mg/dL (0.2-1.0); CREATININE 0.6 mg/dL (0.55-1.02); PHOSPHOROUS 1.4 mg/dL (2.5-4.9); SGOT/AST 71 U/L (15-37); SGPT/ALT 33 U/L (12-78); TOT PROT 4.5 g/dl (6.4-8.2)
[2016-11-13 07:11] LABS: CALCIUM 6.8 mg/dL (8.5-10.1)
[2016-11-13 07:31] LABS: ARTERIAL BLD GAS O2 SATURATION 90.9 % (90-98.9); ARTERIAL BLOOD GAS BASE EXCESS -5.9 meq/l (-2-2); ARTERIAL BLOOD GAS HCO3 19.7 meq/L (22-26)
[2016-11-13 07:33] LABS: ALLENS TEST POSITIVE; ART PUNCT SITE RIGHT RADIAL; LPM/O2% 50%; MECH. VENT. YES; PT. ON O2? YES; TYPE OF O2 VENT; VENT RATE 30; VT/PRESS 10
[2016-11-13 07:35] LABS: ARTERIAL BLOOD GAS PO2 64.1 mmHg (80-100)
[2016-11-13 08:11] LABS: ARTERIAL BLOOD GAS BASE EXCESS -6.2 meq/l (-2-2); ARTERIAL BLOOD GAS HCO3 18.6 meq/L (22-26); ARTERIAL BLOOD GAS pH 7.33 (7.35-7.45)
[2016-11-13 08:12] LABS: ALLENS TEST POSITIVE; ART PUNCT SITE RIGHT BRACHIAL; LPM/O2% 50%; MECH. VENT. YES; PT. ON O2? YES; TYPE OF O2 VENT; VENT RATE 30; VT/PRESS 10
--- NOTE | 2016-11-13 08:24 | PN ---
Physical Exam: SUBJECTIVE: Patient seen and examined at bedside in ICU. Intubated & sedated. Afebrile overnight with good BP on pressors. Started to slowly decrease sedatives this morning with hopes of weaning off vent eventually. Thus far, tolerating decreased sedative dosing better than last attempt on friday. OBJECTIVE: Vital Signs Period Temp Pulse Resp BP Sys/Rapp Pulse Ox Last 24 Hr 98.6 F-101.7 F 32-74 22-64 89-142/46-78 99-100 GENERAL: Intubated & sedated, resting comfortably in bed on sedation. HEENT: Atraumatic, EOMI, PERRLA, Moist membranes, no lymphadenopathy noted LUNGS: Breath sounds mildly diminished at bilateral lung bases, but improved form yesterday. No wheezing. No accessory muscle use. HEART: Regular rate and rhythm, S1, S2 without murmur, rub or gallop. ABDOMEN: Soft, nontender, nondistended, normoactive bowel sounds EXTREMITIES: 2+ pulses, warm, well-perfused, trace edema bilateral upper extremity. Good capillary refill. NEUROLOGICAL: Cranial nerves II through XII grossly intact. Gait and speech not observed. PSYCH: Unable to assess due to clinical condition. SKIN: Warm, dry, normal turgor, no rashes. Tattoos Laboratory Results 11/12/16 11/13/16 11/13/16 21:13 05:15 05:15 WBC 13.6 H RBC 2.75 L Hgb 8.5 L D Hct 26.3 L MCV 95.4 MCHC 32.4 RDW 14.8 Plt Count 219 MPV 9.3 Neutrophils % 77.5 Lymphocytes % 13.4 Monocytes % 3.7 L D Eosinophils % 5.0 H Basophils % 0.4 Puncture Site ABG pH ABG pCO2 at Pt Temp ABG pO2 at Pt Temp ABG HCO3 ABG O2 Sat (Measured) ABG O2 Content ABG Base Excess Atul Test O2 Delivery Device Oxygen Flow Rate Vent Mode Vent Rate Mechanical Rate PEEP Pressure Support Vent Sodium 145 Potassium 4.7 Chloride 112 H Carbon Dioxide 20 L Anion Gap 13 BUN 5 L Creatinine 0.6 D Creat Clearance w eGFR > 60 POC Glucometer [phone] Random Glucose 261 H Lactic Acid Calcium 6.8 L* Phosphorus 1.4 L Magnesium 2.3 D Total Bilirubin 0.8 D AST 71 H ALT 33 Alkaline Phosphatase 214 H D Total Protein 4.5 L Albumin 1.6 L 11/13/16 11/13/16 11/13/16 05:15 06:34 07:10 WBC RBC Hgb Hct MCV MCHC RDW Plt Count MPV Neutrophils % Lymphocytes % Monocytes % Eosinophils % Basophils % Puncture Site Right radial ABG pH 7.30 L ABG pCO2 at Pt Temp 41.7 ABG pO2 at Pt Temp 64.1 L D ABG HCO3 19.7 L ABG O2 Sat (Measured) 90.9 ABG O2 Content 12.9 L ABG Base Excess -5.9 L Atul Test Positive O2 Delivery Device Vent Oxygen Flow Rate 50% Vent Mode Pressure control Vent Rate 30 Mechanical Rate Yes PEEP 15.0 Pressure Support Vent 10 Sodium Potassium Chloride Carbon Dioxide Anion Gap BUN Creatinine Creat Clearance w eGFR POC Glucometer [phone] Random Glucose Lactic Acid 1.800 Calcium Phosphorus Magnesium Total Bilirubin AST ALT Alkaline Phosphatase Total Protein Albumin 11/13/16 07:41 WBC RBC Hgb Hct MCV MCHC RDW Plt Count MPV Neutrophils % Lymphocytes % Monocytes % Eosinophils % Basophils % Puncture Site Right brachial ABG pH 7.33 L ABG pCO2 at Pt Temp 35.9 ABG pO2 at Pt Temp 233.0 H* ABG HCO3 18.6 L ABG O2 Sat (Measured) 100.0 H* ABG O2 Content 12.1 L ABG Base Excess -6.2 L Atul Test Positive O2 Delivery Device Vent Oxygen Flow Rate 50% Vent Mode Pressure control Vent Rate 30 Mechanical Rate Yes PEEP 15.0 Pressure Support Vent 10 Sodium Potassium Chloride Carbon Dioxide Anion Gap BUN Creatinine Creat Clearance w eGFR POC Glucometer Random Glucose Lactic Acid Calcium Phosphorus Magnesium Total Bilirubin AST ALT Alkaline Phosphatase Total Protein Albumin Active Medications Generic Name Dose Route Start Last Admin Trade Name Freq PRN Reason Stop Dose Admin Acetaminophen 650 mg 11/10/16 14:45 11/11/16 02:08 Tylenol - PO 650 mg Q4H PRN Administration FEVER OR PAIN Albuterol/Ipratropium 1 amp 11/12/16 11:20 11/13/16 00:00 Duoneb - NEB 1 amp Q6H PRN Administration SHORTNESS OF BREATH Chlorhexidine Gluconate 1 applic 11/09/16 22:00 11/12/16 21:07 Hibiclens For Decolonization - TP 1 applic HS [facility] Administration Chlorhexidine Gluconate 15 ml 11/11/16 22:00 11/12/16 21:04 Peridex - MM 15 ml BID [facility] Administration Heparin Sodium (Porcine) 5,000 unit 11/10/16 22:00 11/12/16 21:03 Heparin - SQ 5,000 unit BID [facility] Administration Midazolam HCl 100 mg/ Sodium 100 mls @ 2 mls/hr 11/09/16 09:45 11/12/16 16:43 Chloride IVPB 6 mls/hr TITR [facility] Administration Protocol 2 MG/HR Azithromycin 250 mls @ 250 mls/hr 11/09/16 13:30 11/12/16 09:38 Zithromax 500mg Ivpb (Pre-Docked) IVPB 250 mls/hr DAILY [facility] Administration Famotidine/Sodium Chloride 50 mls @ 100 mls/hr 11/09/16 22:00 11/12/16 21:05 Pepcid 20 Mg Premixed Ivpb - IVPB 100 mls/hr BID [facility] Administration Fentanyl 500 mcg/ Dextrose 100 mls @ 20 mls/hr 11/09/16 14:45 11/13/16 07:36 IJ 20 mls/hr TITR [facility] Administration 100 MCG/HR Propofol 100 mls @ 1.565 mls/hr 11/10/16 14:45 11/13/16 06:28 Diprivan - IVPB 28.75 mcg/kg/min TITR [facility] Titration Protocol 5 MCG/KG/MIN Dextrose/Sodium Chloride 1,000 mls @ 100 mls/hr 11/10/16 21:00 11/13/16 04:00 D5-1/2ns+40 Meq Kcl - IV 100 mls/hr ASDIR [facility] Administration Clindamycin Phosphate 50 mls @ 100 mls/hr 11/12/16 02:00 11/13/16 01:29 Cleocin 600 Mg Premix Ivpb - IVPB 100 mls/hr Q8H-IV [facility] Administration Phenylephrine HCl 20,000 mcg/ 250 mls @ 75 mls/hr 11/12/16 02:00 11/13/16 04:00 Sodium Chloride IVPB 30 mcg/min ASDIR [facility] Titration Protocol 100 MCG/MIN Caspofungin 50 mg/ Sodium 250 mls @ 250 mls/hr 11/13/16 10:00 Chloride IVPB DAILY [facility] Insulin Aspart 1 vial 11/11/16 11:00 11/13/16 06:35 Novolog Vial Sliding Scale - SQ 6 units ACHS [facility] Administration Protocol Mupirocin 1 applic 11/09/16 22:00 11/12/16 21:07 Bactroban Ointment (For Decolonization) - NS 11/14/16 21:59 1 applic BID [facility] Administration Piperacillin Sod/Tazobactam Sod 3.375 gm 11/10/16 11:30 11/13/16 01:29 Zosyn 3.375gm Ivpb (Pre-Docked) IVPB 3.375 gm Q8H-IV [facility] Administration Protocol ASSESSMENT/PLAN: 46 year old female with significant PMH of IDDM w/ poor compliance and multiple visits for DKA/Gastroparesis & chronic opioid use for back pain who presented to ED with severe DKA & mixed severe metabolic acidosis with positive ketones and positive lactate 6 after 1 week of not taking insulin. Chest xray was notable for right mid lung infiltrate/pnemonia with WBC severely elevated. #Acute Hypoxemic Respiratory Failure, ARDS in setting of Pneumonia -intubated & sedated on Fentanyl/Versed/Propofol, starting to decrease doses to start vent weaning -Pressure control with low-tidal volumes according to ARDSnet protocol -Clindamycin day 3 -Zosyn day 4 -Azithromycin day 5 -Caspofungin day 2 -IVF D5-1/2NS w/ 40mEq KCl @100ml/hr -all blood, urine cultures (-) -Lactate improved this AM, 1.8 -ID consult appreciated -CXR reviewed, improving aeration #DKA w/ severe metabolic acidosis, closed anion gap -sliding scale insulin -BGM #GIANCARLO, resolved -will continue to monitor kidney function -avoid nephrotoxic meds #Electrolytes abnormalities -will replete phosphorus today -potassium repletion via IVF supplementation -continue to monitor Prophylaxis -Heparin 5000BID -Pepcid BID -IVF, as above -monitor electrolytes -Tube Feeding Osmolyte 1/2 Visit type - Emergency Visit Emergency Visit: Yes ED Registration Date: 11/09/16 Care time: The patient presented to the Emergency Department on the above date and was hospitalized for further evaluation of their emergent condition. - New Patient This patient is new to me today: No - Critical Care Critical Care patient: Yes Total Critical Care Time (in minutes): 45 Critical Care Statement: The care of this patient involved high complexity decision making to prevent further life threatening deterioration of the patient 's condition and/or to evalute & treat vital organ system(s) failure or risk of failure.
[2016-11-13] MEDS: PROPOFOL 100 ML IVPB SCH ×2 (08:41→15:45)
[2016-11-13] MEDS: MIDAZOLAM 100 MG in SODIUM CHLORIDE 100 ML IVPB SCH ×2 (08:43→10:44)
[2016-11-13] MEDS: HEPARIN NA (PORCINE) 5,000 UNITS/ML 1ML VIAL SQ SCH ×2 (10:41→21:39)
[2016-11-13] MEDS: AZITHROMYCIN IVPB 250 ML IVPB SCH (10:41)
[2016-11-13] MEDS: CASPOFUNGIN ACETATE 50 MG in SODIUM CHLORIDE 250 ML IVPB SCH (10:45)
[2016-11-13] MEDS: CHLORHEXIDINE GLUCONATE 0.12% 15ML CUP MM SCH ×2 (10:46→21:43)
[2016-11-13] MEDS: MUPIROCIN 2% TOPICAL OINTMENT FOR DECOLONIZATION NS SCH ×2 (10:47→21:39)
[2016-11-13] MEDS: FAMOTIDINE 20 MG/50 ML IVPB 50 ML IVPB SCH ×2 (11:29→21:43)
--- NOTE | 2016-11-13 12:53 | PN ---
Teaching Attending Note Name of Resident: Chema Alston ATTENDING PHYSICIAN STATEMENT I saw and evaluated the patient. I reviewed the resident's note and discussed the case with the resident. I agree with the resident's findings and plan as documented. SUBJECTIVE: Pt seen and examined in the ICU. Remains intubated, sedated. Oxygenation improving, on low dose phenylephrine gtt. Has finally defervesced. OBJECTIVE: Last Vital Signs Temp Pulse Resp BP Pulse Ox 99.4 F 74 19 128/81 100 11/13/16 08:00 11/13/16 12:00 11/13/16 12:36 11/13/16 12:00 11/12/16 21:34 Intake & Output 11/10/16 11/11/16 11/12/16 11/13/16 23:59 23:59 23:59 23:59 Intake Total 5220.9 5526 6222.6 3148 Output Total 2150 5000 3600 1800 Balance 3070.9 526 2622.6 1348 Weight 159 lb 8 oz Gen: intubated, sedated Heart: RRR Lung: decreased breath sounds at the bases Abd: soft, nontender Ext: + edema CBC, BMP 11/13/16 05:15 11/13/16 05:15 Active Medications Acetaminophen (Tylenol -) 650 mg PO Q4H PRN PRN Reason: FEVER OR PAIN Last Admin: 11/11/16 02:08 Dose: 650 mg Albuterol/Ipratropium (Duoneb -) 1 amp NEB Q6H PRN PRN Reason: SHORTNESS OF BREATH Last Admin: 11/13/16 00:00 Dose: 1 amp Chlorhexidine Gluconate (Hibiclens For Decolonization -) 1 applic TP HS [facility] Last Admin: 11/12/16 21:07 Dose: 1 applic Chlorhexidine Gluconate (Peridex -) 15 ml MM BID [facility] Last Admin: 11/13/16 10:46 Dose: 15 ml Heparin Sodium (Porcine) (Heparin -) 5,000 unit SQ BID [facility] Last Admin: 11/13/16 10:41 Dose: 5,000 unit Midazolam HCl 100 mg/ Sodium (Chloride) 100 mls @ 2 mls/hr IVPB TITR [facility]; 2 MG/ HR PRN Reason: Protocol Last Titration: 11/13/16 11:28 Dose: 0 mg/hr Azithromycin (Zithromax 500mg Ivpb (Pre-Docked)) 250 mls @ 250 mls/hr IVPB DAILY [facility] Last Admin: 11/13/16 10:41 Dose: 250 mls/hr Famotidine/Sodium Chloride (Pepcid 20 Mg Premixed Ivpb -) 50 mls @ 100 mls/hr IVPB BID [facility] Last Admin: 11/13/16 11:29 Dose: 100 mls/hr Fentanyl 500 mcg/ Dextrose 100 mls @ 20 mls/hr IJ TITR [facility] PRN Reason: 100 MCG/HR Last Titration: 11/13/16 10:42 Dose: 75 mcg/hr Propofol (Diprivan -) 100 mls @ 1.565 mls/hr IVPB TITR [facility]; 5 MCG/KG/MIN PRN Reason: Protocol Last Titration: 11/13/16 11:28 Dose: 0 mcg/kg/min Dextrose/Sodium Chloride (D5-1/2ns+40 Meq Kcl -) 1,000 mls @ 100 mls/hr IV ASDIR [facility] Last Admin: 11/13/16 04:00 Dose: 100 mls/hr Clindamycin Phosphate (Cleocin 600 Mg Premix Ivpb -) 50 mls @ 100 mls/hr IVPB Q8H-IV [facility] Last Admin: 11/13/16 10:45 Dose: 100 mls/hr Phenylephrine HCl 20,000 mcg/ (Sodium Chloride) 250 mls @ 75 mls/hr IVPB ASDIR [facility]; 100 MCG/MIN PRN Reason: Protocol Last Titration: 11/13/16 08:47 Dose: 25 mcg/min Caspofungin 50 mg/ Sodium (Chloride) 250 mls @ 250 mls/hr IVPB DAILY [facility] Last Admin: 11/13/16 10:45 Dose: 250 mls/hr Insulin Aspart (Novolog Vial Sliding Scale -) 1 vial SQ ACHS [facility] PRN Reason: Protocol Last Admin: 11/13/16 06:35 Dose: 6 units Mupirocin (Bactroban Ointment (For Decolonization) -) 1 applic NS BID [facility] Stop: 11/14/16 21:59 Last Admin: 11/13/16 10:47 Dose: 1 applic Piperacillin Sod/Tazobactam Sod (Zosyn 3.375gm Ivpb (Pre-Docked)) 3.375 gm IVPB Q8H-IV [facility] PRN Reason: Protocol Last Admin: 11/13/16 10:18 Dose: 3.375 gm ASSESSMENT AND PLAN: Acute Respiratory Failure Pneumonia ARDS resolving Diabetic Ketoacidosis resolving Metabolic Acidosis Acute Kidney Injury Lactic Acidosis Noncompliance - glucose control - continue IVF - placed back on volume assist control from pressure control - continue antibiotics per ID - f/u cultures - monitor urine output, creatinine - replete lytes - hold all sedation to assess mental status - spontaneous breathing trials as tolerated - extubate when mental status improved - start enteral feeds if unable to extubate - DVT/GI prophyalxis - continue ICU monitoring critical care time spent in reviewing chart, evaluating patient and formulating plan 38 min Problem List - Problems (1) DKA (diabetic ketoacidoses) Code(s): E13.10 - OTH DIABETES MELLITUS WITH KETOACIDOSIS WITHOUT COMA Qualifiers: Diabetes mellitus type: type 1 Diabetes mellitus complication detail: with coma Qualified Code(s): E10.11 - Type 1 diabetes mellitus with ketoacidosis with coma (2) Metabolic encephalopathy Code(s): G93.41 - METABOLIC ENCEPHALOPATHY (3) Pneumonia Code(s): J18.9 - PNEUMONIA, UNSPECIFIED ORGANISM Qualifiers: Pneumonia type: due to unspecified organism Laterality: bilateral Lung location: upper lobe of lung Qualified Code(s): J18.9 - Pneumonia, unspecified organism (4) Respiratory failure with hypoxia Code(s): J96.91 - RESPIRATORY FAILURE, UNSPECIFIED WITH HYPOXIA Qualifiers: Chronicity: acute Qualified Code(s): J96.01 - Acute respiratory failure with hypoxia (5) Acute renal failure Code(s): N17.9 - ACUTE KIDNEY FAILURE, UNSPECIFIED Qualifiers: Acute renal failure type: unspecified Qualified Code(s): N17.9 - Acute kidney failure, unspecified (6) Diabetic gastroparesis associated with type 1 diabetes mellitus Code(s): E10.43 - TYPE 1 DIABETES W DIABETIC AUTONOMIC (POLY)NEUROPATHY K31.84 - GASTROPARESIS (7) Diabetic keto-acidosis Code(s): E13.10 - OTH DIABETES MELLITUS WITH KETOACIDOSIS WITHOUT COMA (8) High anion gap metabolic acidosis Code(s): E87.2 - ACIDOSIS (9) Lactic acid acidosis Code(s): E87.2 - ACIDOSIS (10) Renal failure (ARF), acute on chronic Code(s): N17.9 - ACUTE KIDNEY FAILURE, UNSPECIFIED N18.9 - CHRONIC KIDNEY DISEASE, UNSPECIFIED
--- NOTE | 2016-11-13 12:53 | PN ---
Progress Note, Physician History of Present Illness: continues to be sedated and intubated patients fevers better still needing lot of support very restless if sedation is decreased - Current Medication List Current Medications: Active Medications Acetaminophen (Tylenol -) 650 mg PO Q4H PRN PRN Reason: FEVER OR PAIN Last Admin: 11/11/16 02:08 Dose: 650 mg Albuterol/Ipratropium (Duoneb -) 1 amp NEB Q6H PRN PRN Reason: SHORTNESS OF BREATH Last Admin: 11/13/16 00:00 Dose: 1 amp Chlorhexidine Gluconate (Hibiclens For Decolonization -) 1 applic TP HS [facility] Last Admin: 11/12/16 21:07 Dose: 1 applic Chlorhexidine Gluconate (Peridex -) 15 ml MM BID [facility] Last Admin: 11/13/16 10:46 Dose: 15 ml Heparin Sodium (Porcine) (Heparin -) 5,000 unit SQ BID [facility] Last Admin: 11/13/16 10:41 Dose: 5,000 unit Midazolam HCl 100 mg/ Sodium (Chloride) 100 mls @ 2 mls/hr IVPB TITR [facility]; 2 MG/ HR PRN Reason: Protocol Last Titration: 11/13/16 11:28 Dose: 0 mg/hr Azithromycin (Zithromax 500mg Ivpb (Pre-Docked)) 250 mls @ 250 mls/hr IVPB DAILY [facility] Last Admin: 11/13/16 10:41 Dose: 250 mls/hr Famotidine/Sodium Chloride (Pepcid 20 Mg Premixed Ivpb -) 50 mls @ 100 mls/hr IVPB BID [facility] Last Admin: 11/13/16 11:29 Dose: 100 mls/hr Fentanyl 500 mcg/ Dextrose 100 mls @ 20 mls/hr IJ TITR [facility] PRN Reason: 100 MCG/HR Last Titration: 11/13/16 10:42 Dose: 75 mcg/hr Propofol (Diprivan -) 100 mls @ 1.565 mls/hr IVPB TITR [facility]; 5 MCG/KG/MIN PRN Reason: Protocol Last Titration: 11/13/16 11:28 Dose: 0 mcg/kg/min Dextrose/Sodium Chloride (D5-1/2ns+40 Meq Kcl -) 1,000 mls @ 100 mls/hr IV ASDIR [facility] Last Admin: 11/13/16 04:00 Dose: 100 mls/hr Clindamycin Phosphate (Cleocin 600 Mg Premix Ivpb -) 50 mls @ 100 mls/hr IVPB Q8H-IV [facility] Last Admin: 11/13/16 10:45 Dose: 100 mls/hr Phenylephrine HCl 20,000 mcg/ (Sodium Chloride) 250 mls @ 75 mls/hr IVPB ASDIR [facility]; 100 MCG/MIN PRN Reason: Protocol Last Titration: 11/13/16 08:47 Dose: 25 mcg/min Caspofungin 50 mg/ Sodium (Chloride) 250 mls @ 250 mls/hr IVPB DAILY [facility] Last Admin: 11/13/16 10:45 Dose: 250 mls/hr Insulin Aspart (Novolog Vial Sliding Scale -) 1 vial SQ ACHS [facility] PRN Reason: Protocol Last Admin: 11/13/16 06:35 Dose: 6 units Mupirocin (Bactroban Ointment (For Decolonization) -) 1 applic NS BID [facility] Stop: 11/14/16 21:59 Last Admin: 11/13/16 10:47 Dose: 1 applic Piperacillin Sod/Tazobactam Sod (Zosyn 3.375gm Ivpb (Pre-Docked)) 3.375 gm IVPB Q8H-IV [facility] PRN Reason: Protocol Last Admin: 11/13/16 10:18 Dose: 3.375 gm - Objective Vital Signs: Vital Signs Temperature 99.4 F 11/13/16 08:00 Pulse Rate 74 11/13/16 12:00 Respiratory Rate 19 11/13/16 12:36 Blood Pressure 128/81 11/13/16 12:00 O2 Sat by Pulse Oximetry (%) 100 11/12/16 21:34 Constitutional: Yes: Other Neck: Yes: Supple Cardiovascular: Yes: Regular Rate and Rhythm Respiratory: Yes: Intubated, Mechanically Ventilated Gastrointestinal: Yes: Normal Bowel Sounds, Soft Musculoskeletal: Yes: WNL Extremities: Yes: WNL Neurological: Yes: Other Labs: CBC, BMP 11/13/16 05:15 11/13/16 05:15 INR, PTT INR 1.07 (0.82-1.09) 11/09/16 06:54 Assessment/Plan also because of her non compliance in controlling blood sugar,when the patient came in she was in diabetic acidosis Problem List - Problems (1) DKA (diabetic ketoacidoses) Code(s): E13.10 - OTH DIABETES MELLITUS WITH KETOACIDOSIS WITHOUT COMA Qualifiers: Diabetes mellitus type: type 1 Diabetes mellitus complication detail: with coma Qualified Code(s): E10.11 - Type 1 diabetes mellitus with ketoacidosis with coma (2) Metabolic encephalopathy Code(s): G93.41 - METABOLIC ENCEPHALOPATHY (3) Pneumonia Code(s): J18.9 - PNEUMONIA, UNSPECIFIED ORGANISM Qualifiers: Pneumonia type: due to unspecified organism Laterality: bilateral Lung location: upper lobe of lung Qualified Code(s): J18.9 - Pneumonia, unspecified organism (4) Respiratory failure with hypoxia Code(s): J96.91 - RESPIRATORY FAILURE, UNSPECIFIED WITH HYPOXIA Qualifiers: Chronicity: acute Qualified Code(s): J96.01 - Acute respiratory failure with hypoxia (5) Acute renal failure Code(s): N17.9 - ACUTE KIDNEY FAILURE, UNSPECIFIED Qualifiers: Acute renal failure type: unspecified Qualified Code(s): N17.9 - Acute kidney failure, unspecified (6) Diabetic gastroparesis associated with type 1 diabetes mellitus Code(s): E10.43 - TYPE 1 DIABETES W DIABETIC AUTONOMIC (POLY)NEUROPATHY K31.84 - GASTROPARESIS (7) Diabetic keto-acidosis Code(s): E13.10 - OTH DIABETES MELLITUS WITH KETOACIDOSIS WITHOUT COMA (8) High anion gap metabolic acidosis Code(s): E87.2 - ACIDOSIS (9) Lactic acid acidosis Code(s): E87.2 - ACIDOSIS (10) Renal failure (ARF), acute on chronic Code(s): N17.9 - ACUTE KIDNEY FAILURE, UNSPECIFIED N18.9 - CHRONIC KIDNEY DISEASE, UNSPECIFIED Assessment/Plan Acute Respiratory Failure Pneumonia Diabetic Ketoacidosis Severe Metabolic Acidosis Acute Kidney Injury Lactic Acidosis Noncompliance plan continue iv abx will add antifungal patient spiking fever continue to monitor fevers hydration icu mgmt await for all cx reports continue supportive care cc time 40 min
[2016-11-13] MEDS ORDERED: ACETAMINOPHEN 1000 MG/100 ML VIAL (NON FORMULARY) IVPB ONE (15:00)
[2016-11-13] MEDS ORDERED: MIDAZOLAM HCL 2 MG/2 ML SINGLE DOSE VIAL IVPUSH ONE (15:02)
[2016-11-13] MEDS ORDERED: DEXTROSE 5%-0.45% SALINE 1,000 ML IV SCH (16:00)
--- NOTE | 2016-11-13 16:03 | PN ---
Progress Note (short form) - Note Progress Note: SUBJECTIVE: The patient was seen and examined at the bedside, she remains intubated. Versed and propofol stopped for sedation vacation. Patient did not withdraw from painful stimuli. On low dose penylephrine gtt Current Medications Generic Name Dose Route Start Last Admin Trade Name Freq PRN Reason Stop Dose Admin Acetaminophen 650 mg 11/10/16 14:45 11/11/16 02:08 Tylenol - PO 650 mg Q4H PRN Administration FEVER OR PAIN Acetaminophen 1,000 mg 11/13/16 15:00 11/13/16 15:07 Ofirmev Injection - IVPB 11/13/16 15:01 Not Given ONCE ONE Albuterol/Ipratropium 1 amp 11/12/16 11:20 11/13/16 00:00 Duoneb - NEB 1 amp Q6H PRN Administration SHORTNESS OF BREATH Chlorhexidine Gluconate 1 applic 11/09/16 22:00 11/12/16 21:07 Hibiclens For Decolonization - TP 1 applic HS [facility] Administration Chlorhexidine Gluconate 15 ml 11/11/16 22:00 11/13/16 10:46 Peridex - MM 15 ml BID [facility] Administration Heparin Sodium (Porcine) 5,000 unit 11/10/16 22:00 11/13/16 10:41 Heparin - SQ 5,000 unit BID [facility] Administration Azithromycin 250 mls @ 250 mls/hr 11/09/16 13:30 11/13/16 10:41 Zithromax 500mg Ivpb (Pre-Docked) IVPB 250 mls/hr DAILY [facility] Administration Famotidine/Sodium Chloride 50 mls @ 100 mls/hr 11/09/16 22:00 11/13/16 11:29 Pepcid 20 Mg Premixed Ivpb - IVPB 100 mls/hr BID [facility] Administration Fentanyl 500 mcg/ Dextrose 100 mls @ 20 mls/hr 11/09/16 14:45 11/13/16 10:42 IJ 75 mcg/hr TITR [facility] Titration 100 MCG/HR Propofol 100 mls @ 1.565 mls/hr 11/10/16 14:45 11/13/16 11:28 Diprivan - IVPB 0 mcg/kg/min TITR [facility] Titration Protocol 5 MCG/KG/MIN Dextrose/Sodium Chloride 1,000 mls @ 100 mls/hr 11/10/16 21:00 11/13/16 04:00 D5-1/2ns+40 Meq Kcl - IV 100 mls/hr ASDIR [facility] Administration Clindamycin Phosphate 50 mls @ 100 mls/hr 11/12/16 02:00 11/13/16 10:45 Cleocin 600 Mg Premix Ivpb - IVPB 100 mls/hr Q8H-IV [facility] Administration Phenylephrine HCl 20,000 mcg/ 250 mls @ 75 mls/hr 11/12/16 02:00 11/13/16 08:47 Sodium Chloride IVPB 25 mcg/min ASDIR [facility] Titration Protocol 100 MCG/MIN Caspofungin 50 mg/ Sodium 250 mls @ 250 mls/hr 11/13/16 10:00 11/13/16 10:45 Chloride IVPB 250 mls/hr DAILY [facility] Administration Insulin Aspart 1 vial 11/11/16 11:00 11/13/16 13:30 Novolog Vial Sliding Scale - SQ 10 units ACHS [facility] Administration Protocol Midazolam HCl 2 mg 11/13/16 15:02 11/13/16 15:06 Versed - IVPUSH 11/13/16 15:03 2 mg ONCE ONE Administration Mupirocin 1 applic 11/09/16 22:00 11/13/16 10:47 Bactroban Ointment (For Decolonization) - NS 11/14/16 21:59 1 applic BID [facility] Administration Piperacillin Sod/Tazobactam Sod 3.375 gm 11/10/16 11:30 11/13/16 10:18 Zosyn 3.375gm Ivpb (Pre-Docked) IVPB 3.375 gm Q8H-IV [facility] Administration Protocol Objective: Vital Signs Period Temp Pulse Resp BP Sys/Rapp Pulse Ox Last 24 Hr 98.6 F-101.1 F 32-74 19-64 92-142/58-81 100-100 Physical Exam: General: Intubated, sedated HEENT: OG tube present Lungs: Rhonchi throughout Heart: RRR, S1S2 Abd: Soft, non-tender, non-distended. Normoactive bowel sounds Ext: B/l upper and lower extremity edema CBCD WBC 13.6 K/mm3 (4.0-10.0) H 11/13/16 05:15 RBC 2.75 M/mm3 (3.60-5.2) L 11/13/16 05:15 Hgb 8.5 GM/dL (10.7-15.3) L D 11/13/16 05:15 Hct 26.3 % (32.4-45.2) L 11/13/16 05:15 MCV 95.4 fl (80-96) 11/13/16 05:15 MCHC 32.4 g/dl (32.0-36.0) 11/13/16 05:15 RDW 14.8 % (11.6-15.6) 11/13/16 05:15 Plt Count 219 K/MM3 (134-434) 11/13/16 05:15 MPV 9.3 fl (7.5-11.1) 11/13/16 05:15 CMP Sodium 145 mmol/L (136-145) 11/13/16 05:15 Potassium 4.7 mmol/L (3.5-5.1) 11/13/16 05:15 Chloride 112 mmol/L (98-107) H 11/13/16 05:15 Carbon Dioxide 20 mmol/L (21-32) L 11/13/16 05:15 Anion Gap 13 (8-16) 11/13/16 05:15 BUN 5 mg/dL (7-18) L 11/13/16 05:15 Creatinine 0.6 mg/dL (0.55-1.02) D 11/13/16 05:15 Creat Clearance w eGFR > 60 (>60) 11/13/16 05:15 Random Glucose 261 mg/dL (74-106) H 11/13/16 05:15 Calcium 6.8 mg/dL (8.5-10.1) L* 11/13/16 05:15 Total Bilirubin 0.8 mg/dL (0.2-1.0) D 11/13/16 05:15 AST 71 U/L (15-37) H 11/13/16 05:15 ALT 33 U/L (12-78) 11/13/16 05:15 Alkaline Phosphatase 214 U/L (45-117) H D 11/13/16 05:15 Total Protein 4.5 g/dl (6.4-8.2) L 11/13/16 05:15 Albumin 1.6 g/dl (3.4-5.0) L 11/13/16 05:15 CARDIAC ENZYMES Creatine Kinase 230 IU/L (26-192) H D 11/09/16 12:00 Troponin I < 0.02 ng/ml (0.00-0.05) 11/09/16 12:00 Microbiology 11/11/16 23:10 Sputum - Endotrachea Suction/Ventilator Gram Stain - Final 11/11/16 23:10 Sputum - Endotrachea Suction/Ventilator Sputum Culture - Preliminary Yeast Like Organism 11/09/16 07:45 Blood - Peripheral Venous Blood Culture - Preliminary NO GROWTH OBTAINED AFTER 96 HOURS, INCUBATION TO CONTINUE FOR 1 DAYS. 11/09/16 07:50 Blood - Peripheral Venous Blood Culture - Preliminary NO GROWTH OBTAINED AFTER 96 HOURS, INCUBATION TO CONTINUE FOR 1 DAYS. 11/11/16 16:45 Blood - Peripheral Venous Blood Culture - Preliminary NO GROWTH OBTAINED AFTER 24 HOURS, INCUBATION TO CONTINUE FOR 4 DAYS. 11/11/16 16:30 Blood - Peripheral Venous Blood Culture - Preliminary NO GROWTH OBTAINED AFTER 24 HOURS, INCUBATION TO CONTINUE FOR 4 DAYS. 11/11/16 14:45 Sputum - Endotrachea Suction/Ventilator Gram Stain - Final 11/11/16 14:45 Sputum - Endotrachea Suction/Ventilator Sputum Culture - Preliminary Yeast Like Organism 11/11/16 14:45 Urine - Urine Lott Urine Culture - Final NO GROWTH OBTAINED 11/10/16 17:30 Nasopharyngeal Swab Respiratory Virus Panel - Preliminary 11/10/16 17:30 Nasopharyngeal Swab Influenza Types A,B Antigen ([facility]) - Final 11/10/16 17:30 Nasopharyngeal Swab - Final 11/09/16 07:57 Urine - Urine Lott Urine Culture - Final NO GROWTH OBTAINED 11/09/16 07:45 Urine For Antigen Detection Legionella Antigen - Final 11/09/16 07:45 Urine For Antigen Detection Streptococcus pneumoniae Antigen (M - Final Assessment: This is a 46 year old female with PMHx of IDDM (non-compliance with insulin), multiple admissions for DKA, gastroparesis who was admitted with severe DKA, sepsis 2/2 pneumonia, acute hypoxic respiratory failure, ARDS. Plan: 1) Pulmonary: Acute respiratory failure, ARDS - Remains intubated - Sedation vacation to assess mental status - Continue fentanyl gtt - Continue Phenylephrine for pressure support - Appreciate critical care consult 2) ID: Septic shock 2/2 pneumonia - WBC trending down (18.3-> 13.6) - Remains febrile Tmax 101.7, reculture - Lactic acidosis resolved - Remains on pressors - Sputum culture with yeast like sputum - Continue Zosyn (11/09- ) - Continue Azithromycin (11/09- ) - Continue Clindamycin (11/11- ) - Continue Caspofungin (11/12- ) - Appreciate ID consult 3) Endocrine: DKA with severe metabolic acidosis - Resolved, anion gap closed - Start Levemir 5u sq qhs - BGM - ISS 4) : GIANCARLO - Resolved 5) Psych: Depression - Will need psych consult when stable, abuses opiates non complaint with insulin 6) F/E/N: - K 4.7 today, discontinue IV fluids - Tube feeds with free water flushes - Phos 1.4, 1 packet bid with OG tube 7) Prophylaxis: - Heparin 5,000u sq bid - Famotidine IVPB bid 8) Dispo: - Requires continued ICU care CODE STATUS: FULL CODE Visit type - Emergency Visit Emergency Visit: Yes ED Registration Date: 11/09/16 Care time: The patient presented to the Emergency Department on the above date and was hospitalized for further evaluation of their emergent condition. - New Patient This patient is new to me today: Yes Date on this admission: 11/13/16 - Critical Care Critical Care patient: Yes Total Critical Care Time (in minutes): 45 Critical Care Statement: The care of this patient involved high complexity decision making to prevent further life threatening deterioration of the patient 's condition and/or to evalute & treat vital organ system(s) failure or risk of failure.
[2016-11-13] MEDS ORDERED: MIDAZOLAM HCL 2 MG/2 ML SINGLE DOSE VIAL IVPUSH PRN (16:37)
[2016-11-13] MEDS ORDERED: PROPOFOL 100 ML ONE (19:48)
[2016-11-13 20:53] LABS: URINE APPEARANCE CLEAR; URINE BILIRUBIN NEGATIVE (NEGATIVE); URINE COLOR STRAW; URINE GLUCOSE (UA) 3+ (NEGATIVE); URINE KETONE NEGATIVE (NEGATIVE); URINE LEUK ESTERASE NEGATIVE (NEGATIVE); URINE NITRITE NEGATIVE (NEGATIVE); URINE PROTEIN NEGATIVE (NEGATIVE); URINE UROBILINOGEN NEGATIVE E.U./dl (0.2-1.0)
[2016-11-13 21:17] LABS: URINE BLOOD 1+ (NEGATIVE)
[2016-11-13 21:20] LABS: URINE RBC 1 /hpf (0-3); URINE WBC 2 /hpf (3-5)
[2016-11-13] MEDS: CHLORHEXIDINE GLUCONATE 4% CLEANSER FOR DECOLONIZATION TP SCH (21:40)
[2016-11-13] MEDS: NAPH,MB-DB/K PH,MBDB POWDER PACKET NGT SCH (21:48)
[2016-11-13] MEDS ORDERED: NAPH,MB-DB/K PH,MBDB POWDER PACKET PO SCH (22:00)
[2016-11-13] MEDS ORDERED: INSULIN DETEMIR 100 UNITS/ML MDV SQ SCH (22:00)
[2016-11-14] MEDS: CLINDAMYCIN 600MG PREMIX IVPB 50 ML IVPB SCH ×3 (03:00→17:02)
[2016-11-14] MEDS: PIPERACILLIN/TAZOB 3.375 GM/50 ML PRE-DOCKED IVPB SCH ×3 (03:00→17:02)
[2016-11-14] MEDS: INSULIN SLIDING SCALE (NOVOLOG) 1 VIAL SQ SCH ×4 (06:36→22:25)
--- NOTE | 2016-11-14 08:46 | PN ---
Physical Exam: SUBJECTIVE: Patient seen and examined at bedside this AM in ICU. Afebrile overnight with improved respiratory rate. Attempted to lower propofol dose this AM in anticipation of CPAP trial, but patient RR elevated to 50's within 1 hour with moderate work of breathing. Will attempt later this afternoon. OBJECTIVE: Vital Signs Period Temp Pulse Resp BP Sys/Rapp Pulse Ox Last 24 Hr 98.7 F-101.7 F 63-92 17-35 94-147/62-81 100-100 GENERAL: Intubated & sedated, resting comfortably in bed on sedation. HEENT: Atraumatic, EOMI, PERRLA, Moist membranes, no lymphadenopathy noted. LUNGS: Breath sounds mildly diminished at bilateral lung bases, but improved form yesterday. No wheezing. No accessory muscle use. HEART: Regular rate and rhythm, S1, S2 without murmur, rub or gallop. ABDOMEN: Soft, nontender, nondistended, normoactive bowel sounds. EXTREMITIES: 2+ pulses, warm, well-perfused, trace edema bilateral upper extremity. Good capillary refill. NEUROLOGICAL: Cranial nerves II through XII grossly intact. Gait and speech not observed. PSYCH: Unable to assess due to clinical condition. SKIN: Warm, dry, normal turgor, no rashes. Tattoos. Laboratory Results - last 24 hr 11/13/16 15:33 Urine Color Straw Urine Appearance Clear Urine pH 5.0 Ur Specific [place] <= 1.005 Urine Protein Negative Urine Glucose (UA) 3+ H Urine Ketones Negative Urine Blood 1+ H Urine Nitrite Negative Urine Bilirubin Negative Urine Urobilinogen Negative Ur Leukocyte Esterase Negative Urine RBC 1 Urine WBC 2 Active Medications Generic Name Dose Route Start Last Admin Trade Name Myronq PRN Reason Stop Dose Admin Acetaminophen 650 mg 11/10/16 14:45 11/11/16 02:08 Tylenol - PO 650 mg Q4H PRN Administration FEVER OR PAIN Albuterol/Ipratropium 1 amp 11/12/16 11:20 11/13/16 00:00 Duoneb - NEB 1 amp Q6H PRN Administration SHORTNESS OF BREATH Chlorhexidine Gluconate 1 applic 11/09/16 22:00 11/13/16 21:40 Hibiclens For Decolonization - TP 1 applic HS [facility] Administration Chlorhexidine Gluconate 15 ml 11/11/16 22:00 11/13/16 21:43 Peridex - MM 15 ml BID [facility] Administration Heparin Sodium (Porcine) 5,000 unit 11/10/16 22:00 11/13/16 21:39 Heparin - SQ 5,000 unit BID [facility] Administration Azithromycin 250 mls @ 250 mls/hr 11/09/16 13:30 11/13/16 10:41 Zithromax 500mg Ivpb (Pre-Docked) IVPB 250 mls/hr DAILY [facility] Administration Famotidine/Sodium Chloride 50 mls @ 100 mls/hr 11/09/16 22:00 11/13/16 21:43 Pepcid 20 Mg Premixed Ivpb - IVPB 100 mls/hr BID [facility] Administration Fentanyl 500 mcg/ Dextrose 100 mls @ 20 mls/hr 11/09/16 14:45 11/13/16 22:50 IJ 75 mcg/hr TITR [facility] Titration 100 MCG/HR Propofol 100 mls @ 1.565 mls/hr 11/10/16 14:45 11/13/16 22:00 Diprivan - IVPB 45 mcg/kg/min TITR [facility] Titration Protocol 5 MCG/KG/MIN Clindamycin Phosphate 50 mls @ 100 mls/hr 11/12/16 02:00 11/14/16 03:00 Cleocin 600 Mg Premix Ivpb - IVPB 100 mls/hr Q8H-IV [facility] Administration Phenylephrine HCl 20,000 mcg/ 250 mls @ 75 mls/hr 11/12/16 02:00 11/14/16 03:00 Sodium Chloride IVPB 0 mcg/min ASDIR [facility] Titration Protocol 100 MCG/MIN Caspofungin 50 mg/ Sodium 250 mls @ 250 mls/hr 11/13/16 10:00 11/13/16 10:45 Chloride IVPB 250 mls/hr DAILY [facility] Administration Insulin Aspart 1 vial 11/11/16 11:00 11/14/16 06:36 Novolog Vial Sliding Scale - SQ 4 units ACHS [facility] Administration Protocol Insulin Detemir 5 units 11/13/16 22:00 11/13/16 22:06 Levemir Vial SQ 5 units HS [facility] Administration Midazolam HCl 2 mg 11/13/16 16:37 Versed - IVPUSH Q2H PRN AGITATION Mupirocin 1 applic 11/09/16 22:00 11/13/16 21:39 Bactroban Ointment (For Decolonization) - NS 11/14/16 21:59 1 applic BID [facility] Administration Piperacillin Sod/Tazobactam Sod 3.375 gm 11/10/16 11:30 11/14/16 03:00 Zosyn 3.375gm Ivpb (Pre-Docked) IVPB 3.375 gm Q8H-IV [facility] Administration Protocol Potassium Phos/Sodium Phos 1 packet 11/13/16 22:00 11/13/16 21:48 Phos-Nak Packet - NGT 1 packet BID [facility] Administration ASSESSMENT/PLAN: 46 year old female with significant PMH of IDDM w/ poor compliance and multiple visits for DKA/Gastroparesis & chronic opioid use for back pain who presented to ED with severe DKA & mixed severe metabolic acidosis with positive ketones and positive lactate 6 after 1 week of not taking insulin. Chest xray was notable for right mid lung infiltrate/pnemonia with WBC severely elevated. #Acute Hypoxemic Respiratory Failure, ARDS in setting of Pneumonia -intubated & sedated on propofol/fentanyl -Attempted to wean off propofol yesterday with poor respiratory response -Clindamycin day 4 -Zosyn day 5 -Azithromycin day 6 -Caspofungin day 3 -IVF D5-1/2NS w/ 40mEq KCl @100ml/hr -all blood, urine cultures (-) -ID consult appreciated -CXR reviewed, improving aeration #DKA w/ severe metabolic acidosis, closed anion gap -sliding scale insulin -BGM #GIANCARLO, resolved -will continue to monitor kidney function -avoid nephrotoxic meds #Electrolytes abnormalities -potassium repletion via IVF supplementation -continue to monitor Prophylaxis -Heparin 5000BID -Pepcid BID -IVF, as above -monitor electrolytes -Tube Feeding Osmolyte 1/2 Visit type - Emergency Visit Emergency Visit: Yes ED Registration Date: 11/09/16 Care time: The patient presented to the Emergency Department on the above date and was hospitalized for further evaluation of their emergent condition. - New Patient This patient is new to me today: No - Critical Care Critical Care patient: Yes Total Critical Care Time (in minutes): 45 Critical Care Statement: The care of this patient involved high complexity decision making to prevent further life threatening deterioration of the patient 's condition and/or to evalute & treat vital organ system(s) failure or risk of failure.
[2016-11-14 08:56] LABS: MCH 31.8 pg (25.7-33.7); MCHC 33.4 g/dl (32.0-36.0); MEAN CELL VOLUME 95.1 fl (80-96); MEAN PLT VOLUME 9.4 fl (7.5-11.1); RDW 14.2 % (11.6-15.6); WHITE BLOOD COUNT 9.4 K/mm3 (4.0-10.0)
[2016-11-14] MEDS ORDERED: PT OWN MED DRAWER 7, Y5N ONE (09:08)
[2016-11-14 09:14] LABS: ALBUMIN 1.5 g/dl (3.4-5.0); ALK PHOS 206 U/L (45-117); ANION GAP 9 (8-16); BILIRUBIN,TOTAL 0.2 mg/dL (0.2-1.0); CALCIUM 7.5 mg/dL (8.5-10.1); CO2 26 mmol/L (21-32); CREATININE 0.5 mg/dL (0.55-1.02); GLUCOSE,RANDOM 234 mg/dL (74-106); SGOT/AST 30 U/L (15-37); SGPT/ALT 26 U/L (12-78); TOT PROT 4.5 g/dl (6.4-8.2)
[2016-11-14] MEDS: FAMOTIDINE 20 MG/50 ML IVPB 50 ML IVPB SCH ×2 (09:33→22:26)
[2016-11-14] MEDS: AZITHROMYCIN IVPB 250 ML IVPB SCH (09:33)
[2016-11-14] MEDS: NAPH,MB-DB/K PH,MBDB POWDER PACKET NGT SCH ×2 (09:34→22:26)
[2016-11-14] MEDS: HEPARIN NA (PORCINE) 5,000 UNITS/ML 1ML VIAL SQ SCH ×2 (09:34→22:24)
[2016-11-14] MEDS: CHLORHEXIDINE GLUCONATE 0.12% 15ML CUP MM SCH ×2 (09:34→22:26)
[2016-11-14] MEDS: MUPIROCIN 2% TOPICAL OINTMENT FOR DECOLONIZATION NS SCH (09:37)
[2016-11-14] MEDS: ACETAMINOPHEN 325 MG TABLET (FP) PO PRN (10:11)
[2016-11-14] MEDS: CASPOFUNGIN ACETATE 50 MG in SODIUM CHLORIDE 250 ML IVPB SCH (10:42)
[2016-11-14] MEDS ORDERED: ALBUTEROL SO4 2.5/IPRATROPIUM 0.5 INH SOL 3 ML VIAL.NEB. NEB ONE (13:20)
--- NOTE | 2016-11-14 13:37 | PN ---
Physical Exam: SUBJECTIVE: Patient seen and examined. Extubated today. OBJECTIVE: patient extubated today, receiving respiratory treatment rhonchi on anterior lung mclaughlin WBC now 9.4 Vital Signs Period Temp Pulse Resp BP Sys/Rapp Pulse Ox Last 24 Hr 98.7 F-101.7 F 63-92 17-35 94-147/62-82 100-100 GENERAL: Extubated today, receiving respiratory treatment HEAD: Normal with no signs of trauma. EYES: PERRL, extraocular movements intact, sclera anicteric, conjunctiva clear. No ptosis. ENT: Ears normal, nares patent, oropharynx clear without exudates, moist mucous membranes. NECK: Trachea midline, full range of motion, supple. LUNGS: anterior lung sounds + scattered rhonchi HEART: Regular rate and rhythm, ABDOMEN: Soft, nontender, nondistended, normoactive bowel sounds EXTREMITIES: bilateral hands with non pitting NEUROLOGICAL: Lethargic PSYCH: Normal mood, normal affect. SKIN: Warm, dry, normal turgor, no rashes or lesions noted Laboratory Results - last 24 hr 11/13/16 11/13/16 11/13/16 13:14 15:33 17:10 WBC RBC Hgb Hct MCV MCHC RDW MPV Neutrophils % Lymphocytes % Sodium Potassium Chloride Carbon Dioxide Anion Gap BUN Creatinine Creat Clearance w eGFR POC Glucometer > [phone] Random Glucose Calcium Total Bilirubin AST ALT Alkaline Phosphatase Total Protein Albumin Urine Color Straw Urine Appearance Clear Urine pH 5.0 Ur Specific [place] <= 1.005 Urine Protein Negative Urine Glucose (UA) 3+ H Urine Ketones Negative Urine Blood 1+ H Urine Nitrite Negative Urine Bilirubin Negative Urine Urobilinogen Negative Ur Leukocyte Esterase Negative Urine RBC 1 Urine WBC 2 11/13/16 11/14/16 11/14/16 22:02 06:34 08:40 WBC 9.4 D RBC 2.86 L Hgb 9.1 L Hct 27.2 L MCV 95.1 MCHC 33.4 RDW 14.2 MPV 9.4 Neutrophils % Y Lymphocytes % Y Sodium Potassium Chloride Carbon Dioxide Anion Gap BUN Creatinine Creat Clearance w eGFR POC Glucometer [phone] Random Glucose Calcium Total Bilirubin AST ALT Alkaline Phosphatase Total Protein Albumin Urine Color Urine Appearance Urine pH Ur Specific [place] Urine Protein Urine Glucose (UA) Urine Ketones Urine Blood Urine Nitrite Urine Bilirubin Urine Urobilinogen Ur Leukocyte Esterase Urine RBC Urine WBC 11/14/16 11/14/16 08:40 12:12 WBC RBC Hgb Hct MCV MCHC RDW MPV Neutrophils % Lymphocytes % Sodium 146 H Potassium 3.8 Chloride 111 H Carbon Dioxide 26 D Anion Gap 9 BUN 8 D Creatinine 0.5 L Creat Clearance w eGFR > 60 POC Glucometer [phone] Random Glucose 234 H Calcium 7.5 L Total Bilirubin 0.2 D AST 30 D ALT 26 D Alkaline Phosphatase 206 H Total Protein 4.5 L Albumin 1.5 L Urine Color Urine Appearance Urine pH Ur Specific [place] Urine Protein Urine Glucose (UA) Urine Ketones Urine Blood Urine Nitrite Urine Bilirubin Urine Urobilinogen Ur Leukocyte Esterase Urine RBC Urine WBC Active Medications Generic Name Dose Route Start Last Admin Trade Name Myronq PRN Reason Stop Dose Admin Acetaminophen 650 mg 11/10/16 14:45 11/14/16 10:11 Tylenol - PO 650 mg Q4H PRN Administration FEVER OR PAIN Albuterol/Ipratropium 1 amp 11/12/16 11:20 11/13/16 00:00 Duoneb - NEB 1 amp Q6H PRN Administration SHORTNESS OF BREATH Chlorhexidine Gluconate 1 applic 11/09/16 22:00 11/13/16 21:40 Hibiclens For Decolonization - TP 1 applic HS [facility] Administration Chlorhexidine Gluconate 15 ml 11/11/16 22:00 11/14/16 09:34 Peridex - MM 15 ml BID [facility] Administration Heparin Sodium (Porcine) 5,000 unit 11/10/16 22:00 11/14/16 09:34 Heparin - SQ 5,000 unit BID [facility] Administration Azithromycin 250 mls @ 250 mls/hr 11/09/16 13:30 11/14/16 09:33 Zithromax 500mg Ivpb (Pre-Docked) IVPB 250 mls/hr DAILY [facility] Administration Famotidine/Sodium Chloride 50 mls @ 100 mls/hr 11/09/16 22:00 11/14/16 09:33 Pepcid 20 Mg Premixed Ivpb - IVPB 100 mls/hr BID [facility] Administration Fentanyl 500 mcg/ Dextrose 100 mls @ 20 mls/hr 11/09/16 14:45 11/13/16 22:50 IJ 75 mcg/hr TITR [facility] Titration 100 MCG/HR Propofol 100 mls @ 1.565 mls/hr 11/10/16 14:45 11/13/16 22:00 Diprivan - IVPB 45 mcg/kg/min TITR [facility] Titration Protocol 5 MCG/KG/MIN Clindamycin Phosphate 50 mls @ 100 mls/hr 11/12/16 02:00 11/14/16 09:33 Cleocin 600 Mg Premix Ivpb - IVPB 100 mls/hr Q8H-IV [facility] Administration Phenylephrine HCl 20,000 mcg/ 250 mls @ 75 mls/hr 11/12/16 02:00 11/14/16 03:00 Sodium Chloride IVPB 0 mcg/min ASDIR [facility] Titration Protocol 100 MCG/MIN Caspofungin 50 mg/ Sodium 250 mls @ 250 mls/hr 11/13/16 10:00 11/14/16 10:42 Chloride IVPB 250 mls/hr DAILY [facility] Administration Insulin Aspart 1 vial 11/11/16 11:00 11/14/16 12:16 Novolog Vial Sliding Scale - SQ 6 units ACHS [facility] Administration Protocol Insulin Detemir 5 units 11/13/16 22:00 11/13/16 22:06 Levemir Vial SQ 5 units HS [facility] Administration Midazolam HCl 2 mg 11/13/16 16:37 Versed - IVPUSH Q2H PRN AGITATION Mupirocin 1 applic 11/09/16 22:00 11/14/16 09:37 Bactroban Ointment (For Decolonization) - NS 11/14/16 21:59 1 applic BID [facility] Administration Piperacillin Sod/Tazobactam Sod 3.375 gm 11/10/16 11:30 11/14/16 09:34 Zosyn 3.375gm Ivpb (Pre-Docked) IVPB 3.375 gm Q8H-IV [facility] Administration Protocol Potassium Phos/Sodium Phos 1 packet 11/13/16 22:00 11/14/16 09:34 Phos-Nak Packet - NGT 1 packet BID [facility] Administration ASSESSMENT/PLAN: Patient is a 46 year old female with a significant past medical history of IDDM with non compliance, DKA, gastroparesis and polysubstance abuse. She presented to the ED on complaints of nausea and vomiting and was found to be in severe DKA with a glucose greater than 1000, severe metabolic acidosis with positive ketones, WBC on admission was 28.8 with lactic acidosis at 6.4. She was admitted to the ICU and was intubated. Echocardiogram 11/13/2016: No obvious vegetation ID: Severe Sepsis secondary to Pneumonia with acute hypoxemic respiratory failure - acute Assessment/Plan: Lactic acidosis on admission 6.4, now resolved WBC trending down On antibiotics of Zosyn since 11/10, Azithromycin 11/09 and Clindamycin added on Started on Caspofungin on 11/13 Repeat blood culture and urine culture pending Mild sedation with Zosyn, Versed Echo ordered to rule out endocarditis Renal: GIANCARLO in the setting of sepsis - resolved Assessment/Plan: Creatinine 3.3>0.7 Now resolved, monitor with BMP Endocrine: DKA/IDDM/with severe hyperglycemia on admission Assessment/Plan: On sliding scale, monitor Hematology: Anemia - acute Assessment/Plan: likely dilutional Monitor CBC F.E.N. Fluids: On maintenance fluids D5 1/2 NS 40MEQ @ 100cc/hr Electrolytes: monitor with daily bmp Nutrition: Tube Feeding Osmolyte 1/2 Prophylaxis: GI: On pepcid BID DVT: SCDs, Heparin BID Disposition: Continues to require ICU monitoring. Full Code. Visit type - Emergency Visit Emergency Visit: Yes ED Registration Date: 11/09/16 Care time: The patient presented to the Emergency Department on the above date and was hospitalized for further evaluation of their emergent condition. - New Patient This patient is new to me today: No - Critical Care Critical Care patient: No - Discharge Referral Referred to [facility] No
--- NOTE | 2016-11-14 14:44 | PN ---
Teaching Attending Note Name of Resident: Chema Alston ATTENDING PHYSICIAN STATEMENT I saw and evaluated the patient. I reviewed the resident's note and discussed the case with the resident. I agree with the resident's findings and plan as documented. SUBJECTIVE: Pt seen and examined in the ICU. Remained intubated, sedated. Low grade fever this AM. Tolerated CPAP/PS trials even while sedated. Extubated when mental status improved. OBJECTIVE: Last Vital Signs Temp Pulse Resp BP Pulse Ox 100.4 F H 74 18 150/77 98 11/14/16 13:52 11/14/16 13:52 11/14/16 13:52 11/14/16 13:52 11/14/16 13:30 Intake & Output 11/11/16 11/12/16 11/13/16 11/14/16 23:59 23:59 23:59 23:59 Intake Total 5526 6222.6 4946 1440 Output Total 5000 3600 3600 2400 Balance 526 2622.6 1346 -960 Weight 159 lb 8 oz 142 lb 7 oz Gen: intubated, arousable Heart: RRR Lung: decreased breath sounds at the bases Abd: soft, nontender Ext: no edema CBC, BMP 11/14/16 08:40 11/14/16 08:40 Active Medications Acetaminophen (Tylenol -) 650 mg PO Q4H PRN PRN Reason: FEVER OR PAIN Last Admin: 11/14/16 10:11 Dose: 650 mg Albuterol/Ipratropium (Duoneb -) 1 amp NEB Q6H PRN PRN Reason: SHORTNESS OF BREATH Last Admin: 11/13/16 00:00 Dose: 1 amp Chlorhexidine Gluconate (Hibiclens For Decolonization -) 1 applic TP HS [facility] Last Admin: 11/13/16 21:40 Dose: 1 applic Chlorhexidine Gluconate (Peridex -) 15 ml MM BID [facility] Last Admin: 11/14/16 09:34 Dose: 15 ml Heparin Sodium (Porcine) (Heparin -) 5,000 unit SQ BID [facility] Last Admin: 11/14/16 09:34 Dose: 5,000 unit Azithromycin (Zithromax 500mg Ivpb (Pre-Docked)) 250 mls @ 250 mls/hr IVPB DAILY [facility] Last Admin: 11/14/16 09:33 Dose: 250 mls/hr Famotidine/Sodium Chloride (Pepcid 20 Mg Premixed Ivpb -) 50 mls @ 100 mls/hr IVPB BID [facility] Last Admin: 11/14/16 09:33 Dose: 100 mls/hr Fentanyl 500 mcg/ Dextrose 100 mls @ 20 mls/hr IJ TITR [facility] PRN Reason: 100 MCG/HR Last Titration: 11/13/16 22:50 Dose: 75 mcg/hr Propofol (Diprivan -) 100 mls @ 1.565 mls/hr IVPB TITR [facility]; 5 MCG/KG/MIN PRN Reason: Protocol Last Titration: 11/13/16 22:00 Dose: 45 mcg/kg/min Clindamycin Phosphate (Cleocin 600 Mg Premix Ivpb -) 50 mls @ 100 mls/hr IVPB Q8H-IV [facility] Last Admin: 11/14/16 09:33 Dose: 100 mls/hr Phenylephrine HCl 20,000 mcg/ (Sodium Chloride) 250 mls @ 75 mls/hr IVPB ASDIR [facility]; 100 MCG/MIN PRN Reason: Protocol Last Titration: 11/14/16 03:00 Dose: 0 mcg/min Caspofungin 50 mg/ Sodium (Chloride) 250 mls @ 250 mls/hr IVPB DAILY [facility] Last Admin: 11/14/16 10:42 Dose: 250 mls/hr Insulin Aspart (Novolog Vial Sliding Scale -) 1 vial SQ ACHS [facility] PRN Reason: Protocol Last Admin: 11/14/16 12:16 Dose: 6 units Insulin Detemir (Levemir Vial) 5 units SQ HS [facility] Last Admin: 11/13/16 22:06 Dose: 5 units Midazolam HCl (Versed -) 2 mg IVPUSH Q2H PRN PRN Reason: AGITATION Mupirocin (Bactroban Ointment (For Decolonization) -) 1 applic NS BID [facility] Stop: 11/14/16 21:59 Last Admin: 11/14/16 09:37 Dose: 1 applic Piperacillin Sod/Tazobactam Sod (Zosyn 3.375gm Ivpb (Pre-Docked)) 3.375 gm IVPB Q8H-IV [facility] PRN Reason: Protocol Last Admin: 11/14/16 09:34 Dose: 3.375 gm Potassium Phos/Sodium Phos (Phos-Nak Packet -) 1 packet NGT BID [facility] Last Admin: 11/14/16 09:34 Dose: 1 packet ASSESSMENT AND PLAN: Acute Respiratory Failure Pneumonia ARDS resolving Diabetic Ketoacidosis resolving Metabolic Acidosis Acute Kidney Injury Lactic Acidosis Noncompliance - glucose control - d/c IVF - pt extubated - continue antibiotics per ID - f/u cultures - monitor urine output, creatinine - replete lytes - DVT/GI prophyalxis - continue ICU monitoring critical care time spent in reviewing chart, evaluating patient and formulating plan 38 min Problem List - Problems (1) DKA (diabetic ketoacidoses) Code(s): E13.10 - OTH DIABETES MELLITUS WITH KETOACIDOSIS WITHOUT COMA Qualifiers: Diabetes mellitus type: type 1 Diabetes mellitus complication detail: with coma Qualified Code(s): E10.11 - Type 1 diabetes mellitus with ketoacidosis with coma (2) Metabolic encephalopathy Code(s): G93.41 - METABOLIC ENCEPHALOPATHY (3) Pneumonia Code(s): J18.9 - PNEUMONIA, UNSPECIFIED ORGANISM Qualifiers: Pneumonia type: due to unspecified organism Laterality: bilateral Lung location: upper lobe of lung Qualified Code(s): J18.9 - Pneumonia, unspecified organism (4) Respiratory failure with hypoxia Code(s): J96.91 - RESPIRATORY FAILURE, UNSPECIFIED WITH HYPOXIA Qualifiers: Chronicity: acute Qualified Code(s): J96.01 - Acute respiratory failure with hypoxia (5) Acute renal failure Code(s): N17.9 - ACUTE KIDNEY FAILURE, UNSPECIFIED Qualifiers: Acute renal failure type: unspecified Qualified Code(s): N17.9 - Acute kidney failure, unspecified (6) Diabetic gastroparesis associated with type 1 diabetes mellitus Code(s): E10.43 - TYPE 1 DIABETES W DIABETIC AUTONOMIC (POLY)NEUROPATHY K31.84 - GASTROPARESIS (7) Diabetic keto-acidosis Code(s): E13.10 - OTH DIABETES MELLITUS WITH KETOACIDOSIS WITHOUT COMA (8) High anion gap metabolic acidosis Code(s): E87.2 - ACIDOSIS (9) Lactic acid acidosis Code(s): E87.2 - ACIDOSIS (10) Renal failure (ARF), acute on chronic Code(s): N17.9 - ACUTE KIDNEY FAILURE, UNSPECIFIED N18.9 - CHRONIC KIDNEY DISEASE, UNSPECIFIED
[2016-11-14 15:32] LABS: PLATELET ESTIMATE DECREASED (NORMAL)
--- NOTE | 2016-11-14 15:38 | PN ---
Progress Note, Physician History of Present Illness: patient stable extubated today doing well dad in room - Current Medication List Current Medications: Active Medications Acetaminophen (Tylenol -) 650 mg PO Q4H PRN PRN Reason: FEVER OR PAIN Last Admin: 11/14/16 10:11 Dose: 650 mg Albuterol/Ipratropium (Duoneb -) 1 amp NEB Q6H PRN PRN Reason: SHORTNESS OF BREATH Last Admin: 11/13/16 00:00 Dose: 1 amp Chlorhexidine Gluconate (Hibiclens For Decolonization -) 1 applic TP HS [facility] Last Admin: 11/13/16 21:40 Dose: 1 applic Chlorhexidine Gluconate (Peridex -) 15 ml MM BID [facility] Last Admin: 11/14/16 09:34 Dose: 15 ml Heparin Sodium (Porcine) (Heparin -) 5,000 unit SQ BID [facility] Last Admin: 11/14/16 09:34 Dose: 5,000 unit Azithromycin (Zithromax 500mg Ivpb (Pre-Docked)) 250 mls @ 250 mls/hr IVPB DAILY [facility] Last Admin: 11/14/16 09:33 Dose: 250 mls/hr Famotidine/Sodium Chloride (Pepcid 20 Mg Premixed Ivpb -) 50 mls @ 100 mls/hr IVPB BID [facility] Last Admin: 11/14/16 09:33 Dose: 100 mls/hr Fentanyl 500 mcg/ Dextrose 100 mls @ 20 mls/hr IJ TITR [facility] PRN Reason: 100 MCG/HR Last Titration: 11/13/16 22:50 Dose: 75 mcg/hr Propofol (Diprivan -) 100 mls @ 1.565 mls/hr IVPB TITR [facility]; 5 MCG/KG/MIN PRN Reason: Protocol Last Titration: 11/13/16 22:00 Dose: 45 mcg/kg/min Clindamycin Phosphate (Cleocin 600 Mg Premix Ivpb -) 50 mls @ 100 mls/hr IVPB Q8H-IV [facility] Last Admin: 11/14/16 09:33 Dose: 100 mls/hr Phenylephrine HCl 20,000 mcg/ (Sodium Chloride) 250 mls @ 75 mls/hr IVPB ASDIR [facility]; 100 MCG/MIN PRN Reason: Protocol Last Titration: 11/14/16 03:00 Dose: 0 mcg/min Caspofungin 50 mg/ Sodium (Chloride) 250 mls @ 250 mls/hr IVPB DAILY [facility] Last Admin: 11/14/16 10:42 Dose: 250 mls/hr Insulin Aspart (Novolog Vial Sliding Scale -) 1 vial SQ ACHS [facility] PRN Reason: Protocol Last Admin: 11/14/16 12:16 Dose: 6 units Insulin Detemir (Levemir Vial) 5 units SQ HS [facility] Last Admin: 11/13/16 22:06 Dose: 5 units Midazolam HCl (Versed -) 2 mg IVPUSH Q2H PRN PRN Reason: AGITATION Mupirocin (Bactroban Ointment (For Decolonization) -) 1 applic NS BID [facility] Stop: 11/14/16 21:59 Last Admin: 11/14/16 09:37 Dose: 1 applic Piperacillin Sod/Tazobactam Sod (Zosyn 3.375gm Ivpb (Pre-Docked)) 3.375 gm IVPB Q8H-IV [facility] PRN Reason: Protocol Last Admin: 11/14/16 09:34 Dose: 3.375 gm Potassium Phos/Sodium Phos (Phos-Nak Packet -) 1 packet NGT BID [facility] Last Admin: 11/14/16 09:34 Dose: 1 packet - Objective Vital Signs: Vital Signs Temperature 100.4 F H 11/14/16 13:52 Pulse Rate 74 11/14/16 13:52 Respiratory Rate 18 11/14/16 13:52 Blood Pressure 150/77 11/14/16 13:52 O2 Sat by Pulse Oximetry (%) 98 11/14/16 13:30 Constitutional: Yes: No Distress, Calm Neck: Yes: Supple Cardiovascular: Yes: Regular Rate and Rhythm Respiratory: Yes: Regular, Poor Air Entry, Rhonchi Gastrointestinal: Yes: Normal Bowel Sounds, Soft Musculoskeletal: Yes: WNL Extremities: Yes: WNL Neurological: Yes: Alert, Other Psychiatric: Yes: Alert Labs: CBC, BMP 11/14/16 08:40 11/14/16 08:40 INR, PTT INR 1.07 (0.82-1.09) 11/09/16 06:54 - ....Imaging Chest X-ray: Report Reviewed, Image Reviewed Assessment/Plan also because of her non compliance in controlling blood sugar,when the patient came in she was in diabetic acidosis Problem List - Problems (1) DKA (diabetic ketoacidoses) Code(s): E13.10 - OTH DIABETES MELLITUS WITH KETOACIDOSIS WITHOUT COMA Qualifiers: Diabetes mellitus type: type 1 Diabetes mellitus complication detail: with coma Qualified Code(s): E10.11 - Type 1 diabetes mellitus with ketoacidosis with coma (2) Metabolic encephalopathy Code(s): G93.41 - METABOLIC ENCEPHALOPATHY (3) Pneumonia Code(s): J18.9 - PNEUMONIA, UNSPECIFIED ORGANISM Qualifiers: Pneumonia type: due to unspecified organism Laterality: bilateral Lung location: upper lobe of lung Qualified Code(s): J18.9 - Pneumonia, unspecified organism (4) Respiratory failure with hypoxia Code(s): J96.91 - RESPIRATORY FAILURE, UNSPECIFIED WITH HYPOXIA Qualifiers: Chronicity: acute Qualified Code(s): J96.01 - Acute respiratory failure with hypoxia (5) Acute renal failure Code(s): N17.9 - ACUTE KIDNEY FAILURE, UNSPECIFIED Qualifiers: Acute renal failure type: unspecified Qualified Code(s): N17.9 - Acute kidney failure, unspecified (6) Diabetic gastroparesis associated with type 1 diabetes mellitus Code(s): E10.43 - TYPE 1 DIABETES W DIABETIC AUTONOMIC (POLY)NEUROPATHY K31.84 - GASTROPARESIS (7) Diabetic keto-acidosis Code(s): E13.10 - OTH DIABETES MELLITUS WITH KETOACIDOSIS WITHOUT COMA (8) High anion gap metabolic acidosis Code(s): E87.2 - ACIDOSIS (9) Lactic acid acidosis Code(s): E87.2 - ACIDOSIS (10) Renal failure (ARF), acute on chronic Code(s): N17.9 - ACUTE KIDNEY FAILURE, UNSPECIFIED N18.9 - CHRONIC KIDNEY DISEASE, UNSPECIFIED Assessment/Plan Acute Respiratory Failure Pneumonia Diabetic Ketoacidosis Severe Metabolic Acidosis Acute Kidney Injury Lactic Acidosis Noncompliance plan continue current mgmt abx/antifungal continue close watching monitor for fevers urine output resp status cc time 40 min
[2016-11-14] MEDS: FENTANYL INJECTION 500 MCG in DEXTROSE 5%-WATER - 90 ML IJ SCH (17:33)
[2016-11-14] MEDS: PROPOFOL 100 ML IVPB SCH (17:33)
[2016-11-14] MEDS ORDERED: LORAZEPAM CARPU-JECT 2 MG/ML DISP.SYRIN IVPUSH PRN (18:37)
[2016-11-14] MEDS: CHLORHEXIDINE GLUCONATE 4% CLEANSER FOR DECOLONIZATION TP SCH (22:24)
[2016-11-14] MEDS: INSULIN DETEMIR 100 UNITS/ML MDV SQ SCH (22:25)
[2016-11-14] MEDS ORDERED: DEXTROSE 5%-0.45% SALINE 1,000 ML IV SCH (23:30)
[2016-11-15 00:41] LABS: CALCIUM 7.7 mg/dL (8.5-10.1); COCKROFT - GAULT 141.865; CREATININE 0.5 mg/dL (0.55-1.02)
[2016-11-15] MEDS ORDERED: D5-1/2NS+40 MEQ KCL - 1,000 ML IV SCH (01:30)
[2016-11-15] MEDS: PIPERACILLIN/TAZOB 3.375 GM/50 ML PRE-DOCKED IVPB SCH ×3 (01:32→17:28)
[2016-11-15] MEDS: CLINDAMYCIN 600MG PREMIX IVPB 50 ML IVPB SCH ×2 (01:32→09:12)
[2016-11-15 06:16] LABS: BASOPHIL 0.4 % (0-2.0); EOSINOPHIL 0.5 % (0-4.5); MCH 31.6 pg (25.7-33.7); MCHC 34.5 g/dl (32.0-36.0); MEAN CELL VOLUME 91.7 fl (80-96); MEAN PLT VOLUME 7.4 fl (7.5-11.1); NEUTROPHILS 58.1 % (42.8-82.8); PLATELET COUNT 388 K/MM3 (134-434); RDW 13.9 % (11.6-15.6); WHITE BLOOD COUNT 8.2 K/mm3 (4.0-10.0)
[2016-11-15 07:00] LABS: ANION GAP 10 (8-16); CALCIUM 7.5 mg/dL (8.5-10.1); CO2 27 mmol/L (21-32); GLUCOSE,RANDOM 134 mg/dL (74-106); MAGNESIUM 1.7 mg/dL (1.8-2.4); PHOSPHOROUS 1.4 mg/dL (2.5-4.9); SGOT/AST 52 U/L (15-37)
[2016-11-15 07:02] LABS: ALK PHOS 182 U/L (45-117); BILIRUBIN,TOTAL 0.3 mg/dL (0.2-1.0); COCKROFT - GAULT 143.6245; CREATININE 0.5 mg/dL (0.55-1.02); SGPT/ALT 31 U/L (12-78); TOT PROT 4.9 g/dl (6.4-8.2)
[2016-11-15] MEDS: INSULIN SLIDING SCALE (NOVOLOG) 1 VIAL SQ SCH ×4 (07:20→22:39)
--- NOTE | 2016-11-15 07:44 | PN ---
Physical Exam: SUBJECTIVE: Patient seen and examined at bedside this AM in ICU. AAO and in pleasant mood. No acute events overnight & afebrile overnight s/p extubation yesterday afternoon. States she feels tired but much better. OBJECTIVE: Vital Signs Period Temp Pulse Resp BP Sys/Rapp Pulse Ox Last 24 Hr 98.8 F-100.9 F 74-102 15-30 131-150/58-82 98-100 GENERAL: AAOx3, resting comfortably in bed HEENT: Atraumatic, EOMI, PERRLA, Moist membranes, no lymphadenopathy noted. LUNGS: Breath sounds mildly diminished at bilateral lung bases, but improved form yesterday. No wheezing. No accessory muscle use. HEART: Regular rate and rhythm, S1, S2 without murmur, rub or gallop. ABDOMEN: Soft, nontender, nondistended, normoactive bowel sounds. EXTREMITIES: 2+ pulses, warm, well-perfused, trace edema bilateral upper extremity. Good capillary refill. NEUROLOGICAL: Cranial nerves II through XII grossly intact. Normal speech, gait deferred PSYCH: at mental status baseline SKIN: Warm, dry, normal turgor, no rashes. Tattoos. Laboratory Results - last 24 hr 11/13/16 11/13/16 11/13/16 13:14 17:10 22:02 WBC RBC Hgb Hct MCV MCHC RDW Plt Count MPV Neutrophils % Lymphocytes % Monocytes % Eosinophils % Basophils % Differential Comment Platelet Estimate Platelet Comment Sodium Potassium Chloride Carbon Dioxide Anion Gap BUN Creatinine Creat Clearance w eGFR POC Glucometer > 400 [phone] Random Glucose Serum Osmolality Calcium Phosphorus Magnesium Total Bilirubin AST ALT Alkaline Phosphatase Total Protein Albumin Urine Osmolality 11/14/16 11/14/16 11/14/16 06:34 08:40 08:40 WBC 9.4 D RBC 2.86 L Hgb 9.1 L Hct 27.2 L MCV 95.1 MCHC 33.4 RDW 14.2 Plt Count No Result Required. MPV 9.4 Neutrophils % 43.0 D Lymphocytes % 46.0 H D Monocytes % 5.0 Eosinophils % 5.0 H Basophils % 1.0 Differential Comment Manual diff done Platelet Estimate Decreased Platelet Comment Slt plt clumping Sodium 146 H Potassium 3.8 Chloride 111 H Carbon Dioxide 26 D Anion Gap 9 BUN 8 D Creatinine 0.5 L Creat Clearance w eGFR > 60 POC Glucometer [phone] Random Glucose 234 H Serum Osmolality Calcium 7.5 L Phosphorus Magnesium Total Bilirubin 0.2 D AST 30 D ALT 26 D Alkaline Phosphatase 206 H Total Protein 4.5 L Albumin 1.5 L Urine Osmolality 11/14/16 11/14/16 11/14/16 12:12 16:57 22:25 WBC RBC Hgb Hct MCV MCHC RDW Plt Count MPV Neutrophils % Lymphocytes % Monocytes % Eosinophils % Basophils % Differential Comment Platelet Estimate Platelet Comment Sodium Potassium Chloride Carbon Dioxide Anion Gap BUN Creatinine Creat Clearance w eGFR POC Glucometer [phone] [phone] Random Glucose Serum Osmolality Calcium Phosphorus Magnesium Total Bilirubin AST ALT Alkaline Phosphatase Total Protein Albumin Urine Osmolality 11/14/16 11/15/16 11/15/16 23:00 05:50 05:50 WBC 8.2 RBC 2.63 L Hgb 8.3 L Hct 24.2 L MCV 91.7 MCHC 34.5 RDW 13.9 Plt Count 388 D MPV 7.4 L D Neutrophils % 58.1 D Lymphocytes % 26.1 D Monocytes % 14.9 H D Eosinophils % 0.5 D Basophils % 0.4 Differential Comment Platelet Estimate Platelet Comment Sodium 146 H 146 H Potassium 3.4 L 3.0 L Chloride 105 109 H Carbon Dioxide 17 L D 27 D Anion Gap 24 H 10 BUN 9 7 D Creatinine 0.5 L 0.5 L Creat Clearance w eGFR > 60 POC Glucometer Random Glucose 360 H* D 134 H D Serum Osmolality 310 H Calcium 7.7 L 7.5 L Phosphorus 1.4 L Magnesium 1.7 L D Total Bilirubin 0.3 D AST 52 H D ALT 31 Alkaline Phosphatase 182 H Total Protein 4.9 L Albumin 2.0 L D Urine Osmolality 472 Active Medications Generic Name Dose Route Start Last Admin Trade Name Freq PRN Reason Stop Dose Admin Acetaminophen 650 mg 11/10/16 14:45 11/14/16 10:11 Tylenol - PO 650 mg Q4H PRN Administration FEVER OR PAIN Albuterol/Ipratropium 1 amp 11/12/16 11:20 11/13/16 00:00 Duoneb - NEB 1 amp Q6H PRN Administration SHORTNESS OF BREATH Chlorhexidine Gluconate 1 applic 11/09/16 22:00 11/14/16 22:24 Hibiclens For Decolonization - TP 1 applic HS [facility] Administration Chlorhexidine Gluconate 15 ml 11/11/16 22:00 11/15/16 09:24 Peridex - MM Not Given BID [facility] Furosemide 40 mg 11/15/16 11:14 Lasix Injection - IVPUSH 11/15/16 11:15 ONCE ONE Heparin Sodium (Porcine) 5,000 unit 11/10/16 22:00 11/15/16 09:13 Heparin - SQ 5,000 unit BID [facility] Administration Azithromycin 250 mls @ 250 mls/hr 11/09/16 13:30 11/14/16 09:33 Zithromax 500mg Ivpb (Pre-Docked) IVPB 250 mls/hr DAILY [facility] Administration Famotidine/Sodium Chloride 50 mls @ 100 mls/hr 11/09/16 22:00 11/15/16 09:13 Pepcid 20 Mg Premixed Ivpb - IVPB 100 mls/hr BID [facility] Administration Clindamycin Phosphate 50 mls @ 100 mls/hr 11/12/16 02:00 11/15/16 09:12 Cleocin 600 Mg Premix Ivpb - IVPB 100 mls/hr Q8H-IV [facility] Administration Caspofungin 50 mg/ Sodium 250 mls @ 250 mls/hr 11/13/16 10:00 11/14/16 10:42 Chloride IVPB 250 mls/hr DAILY [facility] Administration Dextrose/Sodium Chloride 1,000 mls @ 100 mls/hr 11/15/16 01:30 11/15/16 01:30 D5-1/2ns+40 Meq Kcl - IV 100 mls/hr ASDIR [facility] Administration Insulin Aspart 1 vial 11/11/16 11:00 11/15/16 07:20 Novolog Vial Sliding Scale - SQ Not Given ACHS [facility] Protocol Insulin Detemir 10 units 11/14/16 22:00 11/14/16 22:25 Levemir Vial SQ 10 units HS [facility] Administration Lorazepam 2 mg 11/14/16 18:37 11/14/16 22:28 Ativan Injection - IVPUSH 2 mg Q2H PRN Administration AGITATION Piperacillin Sod/Tazobactam Sod 3.375 gm 11/10/16 11:30 11/15/16 10:21 Zosyn 3.375gm Ivpb (Pre-Docked) IVPB 3.375 gm Q8H-IV [facility] Administration Protocol Potassium Phos/Sodium Phos 1 packet 11/13/16 22:00 11/15/16 09:14 Phos-Nak Packet - NGT 1 packet BID [facility] Administration ASSESSMENT/PLAN: 46 year old female with significant PMH of IDDM w/ poor compliance and multiple visits for DKA/Gastroparesis & chronic opioid use for back pain who presented to ED with severe DKA & mixed severe metabolic acidosis with positive ketones and positive lactate 6 after 1 week of not taking insulin. Chest xray was notable for right mid lung infiltrate/pnemonia with WBC severely elevated. #Acute Hypoxemic Respiratory Failure, ARDS in setting of Pneumonia -saturating well on room air s/p extubation yesterday -CXR shows some increased congestive changes, ordered Lasix 40mg IV PUSH x1 -Clindamycin day 5 -Zosyn day 6 -Azithromycin day 7 -Caspofungin day 4 -IVF D5-1/2NS w/ 40mEq KCl @100ml/hr -all blood, urine cultures (-) -ID consult appreciated #DKA w/ severe metabolic acidosis, closed anion gap -sliding scale insulin -BGM #GIANCARLO, resolved -will continue to monitor kidney function -avoid nephrotoxic meds #Electrolytes abnormalities -Phos-NaK BID -potassium repletion via IVF supplementation -continue to monitor Prophylaxis -Heparin 5000BID -Pepcid BID -IVF, as above -monitor electrolytes -Diabetic diet Visit type - Emergency Visit Emergency Visit: Yes ED Registration Date: 11/09/16 Care time: The patient presented to the Emergency Department on the above date and was hospitalized for further evaluation of their emergent condition. - New Patient This patient is new to me today: No - Critical Care Critical Care patient: Yes Total Critical Care Time (in minutes): 45 Critical Care Statement: The care of this patient involved high complexity decision making to prevent further life threatening deterioration of the patient 's condition and/or to evalute & treat vital organ system(s) failure or risk of failure.
[2016-11-15] MEDS ORDERED: POTASSIUM CHLORIDE ORAL LIQUID 20 MEQ/15 ML PO ONE (08:16)
[2016-11-15] MEDS: FAMOTIDINE 20 MG/50 ML IVPB 50 ML IVPB SCH ×2 (09:13→22:08)
[2016-11-15] MEDS: HEPARIN NA (PORCINE) 5,000 UNITS/ML 1ML VIAL SQ SCH ×2 (09:13→22:08)
[2016-11-15] MEDS: CHLORHEXIDINE GLUCONATE 0.12% 15ML CUP MM SCH ×3 (09:13→22:32)
[2016-11-15] MEDS: NAPH,MB-DB/K PH,MBDB POWDER PACKET NGT SCH ×2 (09:14→22:10)
[2016-11-15] MEDS ORDERED: MAGNESIUM SULF 50% (8.12 MEQ/2 ML-1 GM VIAL) IVPB ONE (10:30)
[2016-11-15] MEDS ORDERED: FUROSEMIDE 40 MG/4 ML INJECTABLE VIAL IVPUSH ONE (11:14)
[2016-11-15] MEDS: AZITHROMYCIN IVPB 250 ML IVPB SCH (11:42)
[2016-11-15] MEDS: CASPOFUNGIN ACETATE 50 MG in SODIUM CHLORIDE 250 ML IVPB SCH (11:42)
--- NOTE | 2016-11-15 11:50 | PN ---
Progress Note, Physician History of Present Illness: post extubation patient doing well curled up in bed not talking too much - Current Medication List Current Medications: Active Medications Acetaminophen (Tylenol -) 650 mg PO Q4H PRN PRN Reason: FEVER OR PAIN Last Admin: 11/14/16 10:11 Dose: 650 mg Albuterol/Ipratropium (Duoneb -) 1 amp NEB Q6H PRN PRN Reason: SHORTNESS OF BREATH Last Admin: 11/13/16 00:00 Dose: 1 amp Chlorhexidine Gluconate (Hibiclens For Decolonization -) 1 applic TP HS [facility] Last Admin: 11/14/16 22:24 Dose: 1 applic Chlorhexidine Gluconate (Peridex -) 15 ml MM BID [facility] Last Admin: 11/15/16 09:24 Dose: Not Given Furosemide (Lasix Injection -) 40 mg IVPUSH ONCE ONE Stop: 11/15/16 11:15 Heparin Sodium (Porcine) (Heparin -) 5,000 unit SQ BID [facility] Last Admin: 11/15/16 09:13 Dose: 5,000 unit Famotidine/Sodium Chloride (Pepcid 20 Mg Premixed Ivpb -) 50 mls @ 100 mls/hr IVPB BID [facility] Last Admin: 11/15/16 09:13 Dose: 100 mls/hr Caspofungin 50 mg/ Sodium (Chloride) 250 mls @ 250 mls/hr IVPB DAILY [facility] Last Admin: 11/15/16 11:42 Dose: 250 mls/hr Dextrose/Sodium Chloride (D5-1/2ns+40 Meq Kcl -) 1,000 mls @ 100 mls/hr IV ASDIR [facility] Last Admin: 11/15/16 01:30 Dose: 100 mls/hr Insulin Aspart (Novolog Vial Sliding Scale -) 1 vial SQ ACHS [facility] PRN Reason: Protocol Last Admin: 11/15/16 11:43 Dose: 2 units Insulin Detemir (Levemir Vial) 10 units SQ HS [facility] Last Admin: 11/14/16 22:25 Dose: 10 units Lorazepam (Ativan Injection -) 2 mg IVPUSH Q2H PRN PRN Reason: AGITATION Last Admin: 11/14/16 22:28 Dose: 2 mg Piperacillin Sod/Tazobactam Sod (Zosyn 3.375gm Ivpb (Pre-Docked)) 3.375 gm IVPB Q8H-IV [facility] PRN Reason: Protocol Last Admin: 11/15/16 10:21 Dose: 3.375 gm Potassium Phos/Sodium Phos (Phos-Nak Packet -) 1 packet NGT BID [facility] Last Admin: 11/15/16 09:14 Dose: 1 packet - Objective Vital Signs: Vital Signs Temperature 98.5 F 11/15/16 10:00 Pulse Rate 85 11/15/16 10:00 Respiratory Rate 20 11/15/16 10:00 Blood Pressure 140/93 11/15/16 10:00 O2 Sat by Pulse Oximetry (%) 98 11/14/16 20:00 Constitutional: Yes: No Distress, Calm Cardiovascular: Yes: Regular Rate and Rhythm Respiratory: Yes: Regular, Poor Air Entry Gastrointestinal: Yes: Normal Bowel Sounds, Soft Musculoskeletal: Yes: WNL Extremities: Yes: WNL Neurological: Yes: Alert Psychiatric: Yes: Alert Labs: CBC, BMP 11/15/16 05:50 11/15/16 05:50 INR, PTT INR 1.07 (0.82-1.09) 11/09/16 06:54 - ....Imaging Chest X-ray: Report Reviewed, Image Reviewed Assessment/Plan also because of her non compliance in controlling blood sugar,when the patient came in she was in diabetic acidosis Problem List - Problems (1) DKA (diabetic ketoacidoses) Code(s): E13.10 - OTH DIABETES MELLITUS WITH KETOACIDOSIS WITHOUT COMA Qualifiers: Diabetes mellitus type: type 1 Diabetes mellitus complication detail: with coma Qualified Code(s): E10.11 - Type 1 diabetes mellitus with ketoacidosis with coma (2) Metabolic encephalopathy Code(s): G93.41 - METABOLIC ENCEPHALOPATHY (3) Pneumonia Code(s): J18.9 - PNEUMONIA, UNSPECIFIED ORGANISM Qualifiers: Pneumonia type: due to unspecified organism Laterality: bilateral Lung location: upper lobe of lung Qualified Code(s): J18.9 - Pneumonia, unspecified organism (4) Respiratory failure with hypoxia Code(s): J96.91 - RESPIRATORY FAILURE, UNSPECIFIED WITH HYPOXIA Qualifiers: Chronicity: acute Qualified Code(s): J96.01 - Acute respiratory failure with hypoxia (5) Acute renal failure Code(s): N17.9 - ACUTE KIDNEY FAILURE, UNSPECIFIED Qualifiers: Acute renal failure type: unspecified Qualified Code(s): N17.9 - Acute kidney failure, unspecified (6) Diabetic gastroparesis associated with type 1 diabetes mellitus Code(s): E10.43 - TYPE 1 DIABETES W DIABETIC AUTONOMIC (POLY)NEUROPATHY K31.84 - GASTROPARESIS (7) Diabetic keto-acidosis Code(s): E13.10 - OTH DIABETES MELLITUS WITH KETOACIDOSIS WITHOUT COMA (8) High anion gap metabolic acidosis Code(s): E87.2 - ACIDOSIS (9) Lactic acid acidosis Code(s): E87.2 - ACIDOSIS (10) Renal failure (ARF), acute on chronic Code(s): N17.9 - ACUTE KIDNEY FAILURE, UNSPECIFIED N18.9 - CHRONIC KIDNEY DISEASE, UNSPECIFIED Assessment/Plan Acute Respiratory Failure Pneumonia Diabetic Ketoacidosis Severe Metabolic Acidosis Acute Kidney Injury Lactic Acidosis Noncompliance plan continue current mgmt abx/antifungal continue close watching will stop clinda and zithro incentive kalia cc time 40 min
--- NOTE | 2016-11-15 12:37 | PN ---
Teaching Attending Note Name of Resident: Chema Alston ATTENDING PHYSICIAN STATEMENT I saw and evaluated the patient. I reviewed the resident's note and discussed the case with the resident. I agree with the resident's findings and plan as documented. SUBJECTIVE: Patient seen and examined in the ICU. Remained extubated. Sleepy but easily arousable. Reports sore throat. Some dry cough. No CP. OBJECTIVE: Intake & Output 11/12/16 11/13/16 11/14/16 11/15/16 23:59 23:59 23:59 23:59 Intake Total 6222.6 4946 2770 950 Output Total 3600 3600 6400 2000 Balance 2622.6 6136 -3630 -1050 Weight 159 lb 8 oz 142 lb 7 oz 144 lb 3.2 oz Last Vital Signs Temp Pulse Resp BP Pulse Ox 98.5 F 85 20 140/93 98 11/15/16 10:00 11/15/16 10:00 11/15/16 10:00 11/15/16 10:00 11/14/16 20:00 Active Medications Acetaminophen (Tylenol -) 650 mg PO Q4H PRN PRN Reason: FEVER OR PAIN Last Admin: 11/14/16 10:11 Dose: 650 mg Albuterol/Ipratropium (Duoneb -) 1 amp NEB Q6H PRN PRN Reason: SHORTNESS OF BREATH Last Admin: 11/13/16 00:00 Dose: 1 amp Chlorhexidine Gluconate (Hibiclens For Decolonization -) 1 applic TP HS [facility] Last Admin: 11/14/16 22:24 Dose: 1 applic Chlorhexidine Gluconate (Peridex -) 15 ml MM BID [facility] Last Admin: 11/15/16 09:24 Dose: Not Given Furosemide (Lasix Injection -) 40 mg IVPUSH ONCE ONE Stop: 11/15/16 11:15 Heparin Sodium (Porcine) (Heparin -) 5,000 unit SQ BID [facility] Last Admin: 11/15/16 09:13 Dose: 5,000 unit Famotidine/Sodium Chloride (Pepcid 20 Mg Premixed Ivpb -) 50 mls @ 100 mls/hr IVPB BID [facility] Last Admin: 11/15/16 09:13 Dose: 100 mls/hr Caspofungin 50 mg/ Sodium (Chloride) 250 mls @ 250 mls/hr IVPB DAILY [facility] Last Admin: 11/15/16 11:42 Dose: 250 mls/hr Dextrose/Sodium Chloride (D5-1/2ns+40 Meq Kcl -) 1,000 mls @ 100 mls/hr IV ASDIR [facility] Last Admin: 11/15/16 01:30 Dose: 100 mls/hr Insulin Aspart (Novolog Vial Sliding Scale -) 1 vial SQ ACHS [facility] PRN Reason: Protocol Last Admin: 11/15/16 11:43 Dose: 2 units Insulin Detemir (Levemir Vial) 10 units SQ HS [facility] Last Admin: 11/14/16 22:25 Dose: 10 units Lorazepam (Ativan Injection -) 2 mg IVPUSH Q2H PRN PRN Reason: AGITATION Last Admin: 11/14/16 22:28 Dose: 2 mg Piperacillin Sod/Tazobactam Sod (Zosyn 3.375gm Ivpb (Pre-Docked)) 3.375 gm IVPB Q8H-IV [facility] PRN Reason: Protocol Last Admin: 11/15/16 10:21 Dose: 3.375 gm Potassium Phos/Sodium Phos (Phos-Nak Packet -) 1 packet NGT BID [facility] Last Admin: 11/15/16 09:14 Dose: 1 packet Gen: Extubated, NAD Heart: RRR Lung: Basilar rhonchi Abd: soft, nontender, (+) BS Ext: no edema Laboratory Results - last 24 hr 11/14/16 11/14/16 11/14/16 08:40 16:57 22:25 WBC RBC Hgb Hct MCV MCHC RDW Plt Count No Result Required. MPV Neutrophils % 43.0 D Lymphocytes % 46.0 H D Monocytes % 5.0 Eosinophils % 5.0 H Basophils % 1.0 Differential Comment Manual diff done Platelet Estimate Decreased Platelet Comment Slt plt clumping Sodium Potassium Chloride Carbon Dioxide Anion Gap BUN Creatinine Creat Clearance w eGFR POC Glucometer [phone] Random Glucose Serum Osmolality Calcium Phosphorus Magnesium Total Bilirubin AST ALT Alkaline Phosphatase Total Protein Albumin Urine Osmolality 11/14/16 11/15/16 11/15/16 23:00 05:50 05:50 WBC 8.2 RBC 2.63 L Hgb 8.3 L Hct 24.2 L MCV 91.7 MCHC 34.5 RDW 13.9 Plt Count 388 D MPV 7.4 L D Neutrophils % 58.1 D Lymphocytes % 26.1 D Monocytes % 14.9 H D Eosinophils % 0.5 D Basophils % 0.4 Differential Comment Platelet Estimate Platelet Comment Sodium 146 H 146 H Potassium 3.4 L 3.0 L Chloride 105 109 H Carbon Dioxide 17 L D 27 D Anion Gap 24 H 10 BUN 9 7 D Creatinine 0.5 L 0.5 L Creat Clearance w eGFR > 60 POC Glucometer Random Glucose 360 H* D 134 H D Serum Osmolality 310 H Calcium 7.7 L 7.5 L Phosphorus 1.4 L Magnesium 1.7 L D Total Bilirubin 0.3 D AST 52 H D ALT 31 Alkaline Phosphatase 182 H Total Protein 4.9 L Albumin 2.0 L D Urine Osmolality 472 11/15/16 07:10 WBC RBC Hgb Hct MCV MCHC RDW Plt Count MPV Neutrophils % Lymphocytes % Monocytes % Eosinophils % Basophils % Differential Comment Platelet Estimate Platelet Comment Sodium Potassium Chloride Carbon Dioxide Anion Gap BUN Creatinine Creat Clearance w eGFR POC Glucometer [phone] Random Glucose Serum Osmolality Calcium Phosphorus Magnesium Total Bilirubin AST ALT Alkaline Phosphatase Total Protein Albumin Urine Osmolality Problem List - Problems (1) DKA (diabetic ketoacidoses) Code(s): E13.10 - OTH DIABETES MELLITUS WITH KETOACIDOSIS WITHOUT COMA Qualifiers: Diabetes mellitus type: type 1 Diabetes mellitus complication detail: with coma Qualified Code(s): E10.11 - Type 1 diabetes mellitus with ketoacidosis with coma (2) Metabolic encephalopathy Code(s): G93.41 - METABOLIC ENCEPHALOPATHY (3) Pneumonia Code(s): J18.9 - PNEUMONIA, UNSPECIFIED ORGANISM Qualifiers: Pneumonia type: due to unspecified organism Laterality: bilateral Lung location: upper lobe of lung Qualified Code(s): J18.9 - Pneumonia, unspecified organism (4) Respiratory failure with hypoxia Code(s): J96.91 - RESPIRATORY FAILURE, UNSPECIFIED WITH HYPOXIA Qualifiers: Chronicity: acute Qualified Code(s): J96.01 - Acute respiratory failure with hypoxia (5) Acute renal failure Code(s): N17.9 - ACUTE KIDNEY FAILURE, UNSPECIFIED Qualifiers: Acute renal failure type: unspecified Qualified Code(s): N17.9 - Acute kidney failure, unspecified (6) Diabetic gastroparesis associated with type 1 diabetes mellitus Code(s): E10.43 - TYPE 1 DIABETES W DIABETIC AUTONOMIC (POLY)NEUROPATHY K31.84 - GASTROPARESIS (7) Diabetic keto-acidosis Code(s): E13.10 - OTH DIABETES MELLITUS WITH KETOACIDOSIS WITHOUT COMA (8) High anion gap metabolic acidosis Code(s): E87.2 - ACIDOSIS (9) Lactic acid acidosis Code(s): E87.2 - ACIDOSIS (10) Renal failure (ARF), acute on chronic Code(s): N17.9 - ACUTE KIDNEY FAILURE, UNSPECIFIED N18.9 - CHRONIC KIDNEY DISEASE, UNSPECIFIED ASSESSMENT AND PLAN: Acute Respiratory Failure Pneumonia ARDS resolving Diabetic Ketoacidosis resolving Metabolic Acidosis Acute Kidney Injury Lactic Acidosis Noncompliance - Glycemic control - PO as tolerated - Consider to de-escalate ABX - DVT/GI prophyalxis - O2 as needed to maintain saturation Dr Otero critical care time spent in reviewing chart, evaluating patient and formulating plan 38 min
[2016-11-15] MEDS ORDERED: FUROSEMIDE 40 MG/4 ML INJECTABLE VIAL ONE (14:23)
--- NOTE | 2016-11-15 15:54 | PN ---
Physical Exam: SUBJECTIVE: Patient seen and examined earlier today in the ICU. She is upset about not being changed earlier today. Denies pain or shortness of breath Tolerating room air. OBJECTIVE: Appears comfortable at rest Patient asking to see a psychiatrist Vital Signs Period Temp Pulse Resp BP Sys/Rapp Pulse Ox Last 24 Hr 98.2 F-100.3 F 77-99 15-21 123-147/58-93 95-99 GENERAL: Extubated yesterday, tolerating room air HEAD: Normal with no signs of trauma. EYES: PERRL, extraocular movements intact, sclera anicteric, conjunctiva clear. No ptosis. ENT: Ears normal, nares patent, oropharynx clear without exudates, moist mucous membranes. NECK: Trachea midline, full range of motion, supple. LUNGS: anterior lung sounds + scattered rhonchi HEART: Regular rate and rhythm, ABDOMEN: Soft, nontender, nondistended, normoactive bowel sounds EXTREMITIES: bilateral hands with non pitting NEUROLOGICAL: Awake and alert PSYCH: Normal mood, normal affect. SKIN: Warm, dry, normal turgor, no rashes or lesions noted Laboratory Results - last 24 hr 11/14/16 11/14/16 11/14/16 16:57 22:25 23:00 WBC RBC Hgb Hct MCV MCHC RDW Plt Count MPV Neutrophils % Lymphocytes % Monocytes % Eosinophils % Basophils % Sodium 146 H Potassium 3.4 L Chloride 105 Carbon Dioxide 17 L D Anion Gap 24 H BUN 9 Creatinine 0.5 L Creat Clearance w eGFR POC Glucometer [phone] Random Glucose 360 H* D Serum Osmolality 310 H Calcium 7.7 L Phosphorus Magnesium Total Bilirubin AST ALT Alkaline Phosphatase Total Protein Albumin Urine Osmolality 472 11/15/16 11/15/16 11/15/16 05:50 05:50 07:10 WBC 8.2 RBC 2.63 L Hgb 8.3 L Hct 24.2 L MCV 91.7 MCHC 34.5 RDW 13.9 Plt Count 388 D MPV 7.4 L D Neutrophils % 58.1 D Lymphocytes % 26.1 D Monocytes % 14.9 H D Eosinophils % 0.5 D Basophils % 0.4 Sodium 146 H Potassium 3.0 L Chloride 109 H Carbon Dioxide 27 D Anion Gap 10 BUN 7 D Creatinine 0.5 L Creat Clearance w eGFR > 60 POC Glucometer [phone] Random Glucose 134 H D Serum Osmolality Calcium 7.5 L Phosphorus 1.4 L Magnesium 1.7 L D Total Bilirubin 0.3 D AST 52 H D ALT 31 Alkaline Phosphatase 182 H Total Protein 4.9 L Albumin 2.0 L D Urine Osmolality 11/15/16 11:26 WBC RBC Hgb Hct MCV MCHC RDW Plt Count MPV Neutrophils % Lymphocytes % Monocytes % Eosinophils % Basophils % Sodium Potassium Chloride Carbon Dioxide Anion Gap BUN Creatinine Creat Clearance w eGFR POC Glucometer [phone] Random Glucose Serum Osmolality Calcium Phosphorus Magnesium Total Bilirubin AST ALT Alkaline Phosphatase Total Protein Albumin Urine Osmolality Active Medications Generic Name Dose Route Start Last Admin Trade Name Freq PRN Reason Stop Dose Admin Acetaminophen 650 mg 11/10/16 14:45 11/14/16 10:11 Tylenol - PO 650 mg Q4H PRN Administration FEVER OR PAIN Albuterol/Ipratropium 1 amp 11/12/16 11:20 11/13/16 00:00 Duoneb - NEB 1 amp Q6H PRN Administration SHORTNESS OF BREATH Chlorhexidine Gluconate 1 applic 11/09/16 22:00 11/14/16 22:24 Hibiclens For Decolonization - TP 1 applic HS [facility] Administration Chlorhexidine Gluconate 15 ml 11/11/16 22:00 11/15/16 09:24 Peridex - MM Not Given BID [facility] Heparin Sodium (Porcine) 5,000 unit 11/10/16 22:00 11/15/16 09:13 Heparin - SQ 5,000 unit BID [facility] Administration Famotidine/Sodium Chloride 50 mls @ 100 mls/hr 11/09/16 22:00 11/15/16 09:13 Pepcid 20 Mg Premixed Ivpb - IVPB 100 mls/hr BID [facility] Administration Caspofungin 50 mg/ Sodium 250 mls @ 250 mls/hr 11/13/16 10:00 11/15/16 11:42 Chloride IVPB 250 mls/hr DAILY [facility] Administration Dextrose/Sodium Chloride 1,000 mls @ 100 mls/hr 11/15/16 01:30 11/15/16 01:30 D5-1/2ns+40 Meq Kcl - IV 100 mls/hr ASDIR [facility] Administration Insulin Aspart 1 vial 11/11/16 11:00 11/15/16 11:43 Novolog Vial Sliding Scale - SQ 2 units ACHS [facility] Administration Protocol Insulin Detemir 10 units 11/14/16 22:00 11/14/16 22:25 Levemir Vial SQ 10 units HS [facility] Administration Lorazepam 2 mg 11/14/16 18:37 11/14/16 22:28 Ativan Injection - IVPUSH 2 mg Q2H PRN Administration AGITATION Piperacillin Sod/Tazobactam Sod 3.375 gm 11/10/16 11:30 11/15/16 10:21 Zosyn 3.375gm Ivpb (Pre-Docked) IVPB 3.375 gm Q8H-IV [facility] Administration Protocol Potassium Phos/Sodium Phos 1 packet 11/13/16 22:00 11/15/16 09:14 Phos-Nak Packet - NGT 1 packet BID [facility] Administration ASSESSMENT/PLAN: Patient is a 46 year old female with a significant past medical history of IDDM with non compliance, DKA, gastroparesis and polysubstance abuse. She presented to the ED on complaints of nausea and vomiting and was found to be in severe DKA with a glucose greater than 1000, severe metabolic acidosis with positive ketones, WBC on admission was 28.8 with lactic acidosis at 6.4. She was admitted to the ICU and was intubated. Echocardiogram 11/13/2016: No obvious vegetation ID: Severe Sepsis secondary to Pneumonia with acute hypoxemic respiratory failure - much improved/extubated yesterday, now on room air Assessment/Plan: Lactic acidosis resolved WBC now within normal limit, tmax 100.3F On antibiotics of Zosyn since 11/10, Azithromycin 11/09 and Clindamycin added on Started on Caspofungin on 11/13 Given Lasix 40m iv push x 1 today for increased congestive changes in chest xray Repeat blood culture and urine negative Renal: GIANCARLO in the setting of sepsis - resolved Assessment/Plan: Creatinine 3.3>0.7 Now resolved, monitor with BMP Endocrine: DKA/IDDM/with severe hyperglycemia on admission Assessment/Plan: Anion gap closed monitor BGMs Hematology: Anemia - acute Assessment/Plan: likely dilutional, Monitor CBC F.E.N. Fluids: On maintenance fluids D5 1/2 NS 40MEQ @ 100cc/hr Electrolytes: monitor with daily bmp. Phos ashleigh BID Hypokalemia - 40meq K x 1 Nutrition: Tube Feeding Osmolyte 1/2 Prophylaxis: GI: On pepcid BID DVT: SCDs, Heparin BID Disposition: Continues to require inpatient hospitalization. Full Code. Visit type - Emergency Visit Emergency Visit: Yes ED Registration Date: 11/09/16 Care time: The patient presented to the Emergency Department on the above date and was hospitalized for further evaluation of their emergent condition. - New Patient This patient is new to me today: No - Critical Care Critical Care patient: Yes Total Critical Care Time (in minutes): 45 Critical Care Statement: The care of this patient involved high complexity decision making to prevent further life threatening deterioration of the patient 's condition and/or to evalute & treat vital organ system(s) failure or risk of failure. - Discharge Referral Referred to [facility] Med P.C.: No
[2016-11-15] MEDS: ACETAMINOPHEN 325 MG TABLET (FP) PO PRN (18:40)
[2016-11-15] MEDS: ONDANSETRON 4 MG/2 ML VIAL IVPB PRN (18:45)
[2016-11-15] MEDS ORDERED: INSULIN (NOVOLOG) ASPART 100 UNITS/ML 10ML VIAL SQ ONE (19:57)
[2016-11-15] MEDS: SODIUM CHLORIDE 0.9%/KCL 1,000 ML IV SCH (20:19)
[2016-11-15] MEDS: CHLORHEXIDINE GLUCONATE 4% CLEANSER FOR DECOLONIZATION TP SCH (22:32)
[2016-11-15] MEDS: INSULIN DETEMIR 100 UNITS/ML MDV SQ SCH (22:36)
[2016-11-15] MEDS ORDERED: INSULIN (NOVOLOG) ASPART 100 UNITS/ML 10ML VIAL ONE (22:39)
[2016-11-16] MEDS: ONDANSETRON 4 MG/2 ML VIAL IVPB PRN ×3 (00:35→13:54)
[2016-11-16] MEDS: PIPERACILLIN/TAZOB 3.375 GM/50 ML PRE-DOCKED IVPB SCH ×3 (01:56→17:38)
[2016-11-16] MEDS: ACETAMINOPHEN 325 MG TABLET (FP) PO PRN ×2 (02:04→14:26)
[2016-11-16] MEDS: INSULIN SLIDING SCALE (NOVOLOG) 1 VIAL SQ SCH ×4 (06:33→21:19)
[2016-11-16 08:32] LABS: BASOPHIL 0.4 % (0-2.0); EOSINOPHIL 0.7 % (0-4.5); MCH 31.9 pg (25.7-33.7); MCHC 34.7 g/dl (32.0-36.0); MEAN CELL VOLUME 91.9 fl (80-96); MEAN PLT VOLUME 7.3 fl (7.5-11.1); NEUTROPHILS 54.8 % (42.8-82.8); PLATELET COUNT 456 K/MM3 (134-434); RDW 14.1 % (11.6-15.6); WHITE BLOOD COUNT 8.9 K/mm3 (4.0-10.0)
[2016-11-16 09:00] LABS: ALBUMIN 2.3 g/dl (3.4-5.0); ANION GAP 13 (8-16); CALCIUM 7.9 mg/dL (8.5-10.1); CO2 26 mmol/L (21-32); GLUCOSE,RANDOM 110 mg/dL (74-106)
[2016-11-16 09:06] LABS: ALK PHOS 173 U/L (45-117); BILIRUBIN,TOTAL 0.3 mg/dL (0.2-1.0); COCKROFT - GAULT 114.6395; CREATININE 0.6 mg/dL (0.55-1.02); SGOT/AST 47 U/L (15-37); SGPT/ALT 36 U/L (12-78); TOT PROT 5.5 g/dl (6.4-8.2)
[2016-11-16] MEDS ORDERED: POTASSIUM CHLORIDE ORAL LIQUID 20 MEQ/15 ML PO ONE (09:12)
[2016-11-16] MEDS: FAMOTIDINE 20 MG/50 ML IVPB 50 ML IVPB SCH ×2 (09:23→21:19)
[2016-11-16] MEDS: CHLORHEXIDINE GLUCONATE 0.12% 15ML CUP MM SCH ×2 (09:23→21:02)
[2016-11-16] MEDS: HEPARIN NA (PORCINE) 5,000 UNITS/ML 1ML VIAL SQ SCH ×2 (09:23→21:19)
[2016-11-16] MEDS: NAPH,MB-DB/K PH,MBDB POWDER PACKET NGT SCH ×2 (09:24→21:20)
[2016-11-16] MEDS: CASPOFUNGIN ACETATE 50 MG in SODIUM CHLORIDE 250 ML IVPB SCH (09:44)
[2016-11-16] MEDS: ALBUTEROL SO4 2.5/IPRATROPIUM 0.5 INH SOL 3 ML VIAL.NEB. NEB PRN (10:02)
[2016-11-16] MEDS ORDERED: POTASSIUM CHLORIDE TABS 20 MEQ TABLET.ER (FP) PO ONE (11:00)
[2016-11-16] MEDS ORDERED: INSULIN (NOVOLOG) ASPART 100 UNITS/ML 10ML VIAL ONE ×2 (11:27→21:17)
[2016-11-16] MEDS: SODIUM CHLORIDE 0.9%/KCL 1,000 ML IV SCH ×2 (12:00→20:00)
--- NOTE | 2016-11-16 12:24 | PN ---
Physical Exam: SUBJECTIVE: Patient seen and examined. States she feels well, concern over her blood sugar levels. Parents in room report that patient was texting them overnight with texts that did not make sense, they state she get like this when hypoglycemic. OBJECTIVE: Overnight notes reviewed, blood sugars elevated, then became hypoglycemic Patient was able to get OOB to chair Lungs still diminished bilaterally - will need 2 liter oxygen as needed Incentive spirometer OOB with PT as tolerated Scheduled Albuterol treatments q6 Vital Signs Period Temp Pulse Resp BP Sys/Rapp Pulse Ox Last 24 Hr 98.4 F-98.9 F 78-90 16-20 123-140/60-70 95-97 GENERAL: Extubated on 11/14, tolerating room but having mild dyspnea on exertion , 2 liters NC prn HEAD: Normal with no signs of trauma. EYES: PERRL, extraocular movements intact, sclera anicteric, conjunctiva clear. No ptosis. ENT: Ears normal, nares patent, oropharynx clear without exudates, moist mucous membranes. NECK: Trachea midline, full range of motion, supple. LUNGS: anterior lung sounds + scattered rhonchi - posterior lungs diminished/ clear HEART: Regular rate and rhythm, ABDOMEN: Soft, nontender, nondistended, normoactive bowel sounds EXTREMITIES: bilateral hands with non pitting edema NEUROLOGICAL: Awake and alert PSYCH: Normal mood, normal affect. SKIN: Warm, dry, normal turgor, no rashes or lesions noted Laboratory Results - last 24 hr 11/15/16 11/15/16 11/15/16 11:26 15:51 19:20 WBC RBC Hgb Hct MCV MCHC RDW Plt Count MPV Neutrophils % Lymphocytes % Monocytes % Eosinophils % Basophils % Sodium Potassium Chloride Carbon Dioxide Anion Gap BUN Creatinine Creat Clearance w eGFR POC Glucometer [phone] 339 Random Glucose Calcium Total Bilirubin AST ALT Alkaline Phosphatase Total Protein Albumin 11/15/16 11/15/16 11/16/16 19:47 22:30 06:14 WBC RBC Hgb Hct MCV MCHC RDW Plt Count MPV Neutrophils % Lymphocytes % Monocytes % Eosinophils % Basophils % Sodium Potassium Chloride Carbon Dioxide Anion Gap BUN Creatinine Creat Clearance w eGFR POC Glucometer 357 262 58 Random Glucose Calcium Total Bilirubin AST ALT Alkaline Phosphatase Total Protein Albumin 11/16/16 11/16/16 11/16/16 06:32 06:55 07:00 WBC 8.9 RBC 2.93 L Hgb 9.4 L D Hct 27.0 L MCV 91.9 MCHC 34.7 RDW 14.1 Plt Count 456 H MPV 7.3 L Neutrophils % 54.8 Lymphocytes % 31.7 D Monocytes % 12.4 H Eosinophils % 0.7 Basophils % 0.4 Sodium Potassium Chloride Carbon Dioxide Anion Gap BUN Creatinine Creat Clearance w eGFR POC Glucometer 61 82 Random Glucose Calcium Total Bilirubin AST ALT Alkaline Phosphatase Total Protein Albumin 11/16/16 11/16/16 07:00 11:25 WBC RBC Hgb Hct MCV MCHC RDW Plt Count MPV Neutrophils % Lymphocytes % Monocytes % Eosinophils % Basophils % Sodium 147 H Potassium 3.0 L Chloride 108 H Carbon Dioxide 26 Anion Gap 13 BUN 11 D Creatinine 0.6 Creat Clearance w eGFR > 60 POC Glucometer 257 Random Glucose 110 H Calcium 7.9 L Total Bilirubin 0.3 AST 47 H ALT 36 Alkaline Phosphatase 173 H Total Protein 5.5 L Albumin 2.3 L Active Medications Generic Name Dose Route Start Last Admin Trade Name Freq PRN Reason Stop Dose Admin Acetaminophen 650 mg 11/10/16 14:45 11/16/16 02:04 Tylenol - PO 650 mg Q4H PRN Administration FEVER OR PAIN Albuterol/Ipratropium 1 amp 11/12/16 11:20 11/16/16 10:02 Duoneb - NEB 1 amp Q6H PRN Administration SHORTNESS OF BREATH Chlorhexidine Gluconate 1 applic 11/09/16 22:00 11/15/16 22:32 Hibiclens For Decolonization - TP Not Given HS [facility] Chlorhexidine Gluconate 15 ml 11/11/16 22:00 11/16/16 09:23 Peridex - MM Not Given BID [facility] Heparin Sodium (Porcine) 5,000 unit 11/10/16 22:00 11/16/16 09:23 Heparin - SQ 5,000 unit BID [facility] Administration Famotidine/Sodium Chloride 50 mls @ 100 mls/hr 11/09/16 22:00 11/16/16 09:23 Pepcid 20 Mg Premixed Ivpb - IVPB 100 mls/hr BID [facility] Administration Caspofungin 50 mg/ Sodium 250 mls @ 250 mls/hr 11/13/16 10:00 11/16/16 09:44 Chloride IVPB 250 mls/hr DAILY [facility] Administration Potassium Chloride/Sodium Chloride 1,000 mls @ 100 mls/hr 11/15/16 20:00 12:00 Ns+20 Meq Kcl - IV 100 mls/hr ASDIR [facility] Administration Insulin Aspart 1 vial 11/11/16 11:00 11/16/16 11:27 Novolog Vial Sliding Scale - SQ 4 units ACHS [facility] Administration Protocol Insulin Detemir 10 units 11/14/16 22:00 11/15/16 22:36 Levemir Vial SQ 10 units HS [facility] Administration Lorazepam 2 mg 11/14/16 18:37 11/14/16 22:28 Ativan Injection - IVPUSH 2 mg Q2H PRN Administration AGITATION Ondansetron HCl 4 mg 11/15/16 18:40 11/16/16 07:57 Zofran Injection IVPB 4 mg Q6H PRN Administration NAUSEA Piperacillin Sod/Tazobactam Sod 3.375 gm 11/10/16 11:30 11/16/16 09:24 Zosyn 3.375gm Ivpb (Pre-Docked) IVPB 3.375 gm Q8H-IV [facility] Administration Protocol Potassium Phos/Sodium Phos 1 packet 11/13/16 22:00 11/16/16 09:24 Phos-Nak Packet - NGT 1 packet BID [facility] Administration Zolpidem Tartrate 5 mg 11/16/16 22:00 Ambien - PO HS PRN INSOMNIA ASSESSMENT/PLAN: Patient is a 46 year old female with a significant past medical history of IDDM with non compliance, DKA, gastroparesis and polysubstance abuse. She presented to the ED on complaints of nausea and vomiting and was found to be in severe DKA with a glucose greater than 1000, severe metabolic acidosis with positive ketones, WBC on admission was 28.8 with lactic acidosis at 6.4. She was admitted to the ICU and was intubated. She is s/p extubation on and was transferred to a medical surgical floor on 11/15. Echocardiogram 11/13/2016: No obvious vegetation ID/Pulmonary: Severe Sepsis secondary to Pneumonia with acute hypoxemic respiratory failure - improving Assessment/Plan: Lactic acidosis resolved WBC now within normal limit, afebrile On antibiotics of Zosyn since 11/10, Azithromycin 11/09 and Clindamycin added on Started on Caspofungin on 11/13 Repeat blood culture and urine negative Incentive spirometer oxygen 2 liters prn ID following Renal: GIANCARLO in the setting of sepsis - resolved Now resolved, monitor with BMP Endocrine: DKA/IDDM/with severe hyperglycemia on admission Assessment/Plan: Anion gap closed monitor BGMs, Hematology: Anemia - acute Assessment/Plan: likely dilutional, Monitor CBC F.E.N. Fluids: On maintenance fluids D5 1/2 NS 20MEQ @ 100cc/hr Electrolytes: monitor with daily bmp. Phos ashleigh BID Hypokalemia - 40meq K x 1, stopped D5 in IVF Nutrition: Tolerating diabetic diet Prophylaxis: GI: On pepcid BID DVT: SCDs, Heparin BID Disposition: Continues to require inpatient hospitalization. Full Code. Visit type - Emergency Visit Emergency Visit: Yes ED Registration Date: 11/09/16 Care time: The patient presented to the Emergency Department on the above date and was hospitalized for further evaluation of their emergent condition. - New Patient This patient is new to me today: No - Critical Care Critical Care patient: No - Discharge Referral Referred to [facility] Med P.C.: No
[2016-11-16] MEDS: oxyCODONE HCL 5 MG TABLET PO PRN (14:30)
[2016-11-16] MEDS ORDERED: INSULIN (NOVOLOG) ASPART 100 UNITS/ML 10ML VIAL SQ ONE (17:11)
[2016-11-16] MEDS ORDERED: INSULIN DETEMIR 100 UNITS/ML MDV SQ SCH (17:13)
--- NOTE | 2016-11-16 17:47 | PN ---
Progress Note, Physician History of Present Illness: doing well no complaints except nausea eating well looks good - Current Medication List Current Medications: Active Medications Acetaminophen (Tylenol -) 650 mg PO Q4H PRN PRN Reason: FEVER OR PAIN Last Admin: 11/16/16 14:26 Dose: 650 mg Albuterol/Ipratropium (Duoneb -) 1 amp NEB QIDR [facility] Chlorhexidine Gluconate (Hibiclens For Decolonization -) 1 applic TP HS [facility] Last Admin: 11/15/16 22:32 Dose: Not Given Chlorhexidine Gluconate (Peridex -) 15 ml MM BID [facility] Last Admin: 11/16/16 09:23 Dose: Not Given Heparin Sodium (Porcine) (Heparin -) 5,000 unit SQ BID [facility] Last Admin: 11/16/16 09:23 Dose: 5,000 unit Famotidine/Sodium Chloride (Pepcid 20 Mg Premixed Ivpb -) 50 mls @ 100 mls/hr IVPB BID [facility] Last Admin: 11/16/16 09:23 Dose: 100 mls/hr Caspofungin 50 mg/ Sodium (Chloride) 250 mls @ 250 mls/hr IVPB DAILY [facility] Last Admin: 11/16/16 09:44 Dose: 250 mls/hr Potassium Chloride/Sodium Chloride (Ns+20 Meq Kcl -) 1,000 mls @ 100 mls/hr IV ASDIR [facility] Last Admin: 11/16/16 12:00 Dose: 100 mls/hr Insulin Aspart (Novolog Vial Sliding Scale -) 1 vial SQ ACHS [facility] PRN Reason: Protocol Insulin Detemir (Levemir Vial) 15 units SQ [facility] Lorazepam (Ativan Injection -) 2 mg IVPUSH Q2H PRN PRN Reason: AGITATION Last Admin: 11/14/16 22:28 Dose: 2 mg Ondansetron HCl (Zofran Injection) 4 mg IVPB Q6H PRN PRN Reason: NAUSEA Last Admin: 11/16/16 13:54 Dose: 4 mg Oxycodone HCl (Roxicodone -) 5 mg PO Q4H PRN PRN Reason: PAIN Last Admin: 11/16/16 14:30 Dose: 5 mg Piperacillin Sod/Tazobactam Sod (Zosyn 3.375gm Ivpb (Pre-Docked)) 3.375 gm IVPB Q8H-IV [facility] PRN Reason: Protocol Last Admin: 11/16/16 17:38 Dose: 3.375 gm Potassium Phos/Sodium Phos (Phos-Nak Packet -) 1 packet NGT BID [facility] Last Admin: 11/16/16 09:24 Dose: 1 packet Zolpidem Tartrate (Ambien -) 5 mg PO HS PRN PRN Reason: INSOMNIA - Objective Vital Signs: Vital Signs Temperature 98.1 F 11/16/16 13:52 Pulse Rate 67 11/16/16 13:52 Respiratory Rate 11/16/16 13:52 Blood Pressure 131/68 11/16/16 13:52 O2 Sat by Pulse Oximetry (%) 97 11/16/16 10:02 Constitutional: Yes: No Distress, Calm Cardiovascular: Yes: Regular Rate and Rhythm Respiratory: Yes: Regular, CTA Bilaterally Gastrointestinal: Yes: Normal Bowel Sounds, Soft Musculoskeletal: Yes: WNL Extremities: Yes: WNL Neurological: Yes: Alert, Oriented Psychiatric: Yes: Alert, Oriented Labs: CBC, BMP 11/16/16 07:00 11/16/16 07:00 INR, PTT INR 1.07 (0.82-1.09) 11/09/16 06:54 Assessment/Plan also because of her non compliance in controlling blood sugar,when the patient came in she was in diabetic acidosis Problem List - Problems (1) DKA (diabetic ketoacidoses) Code(s): E13.10 - OTH DIABETES MELLITUS WITH KETOACIDOSIS WITHOUT COMA Qualifiers: Diabetes mellitus type: type 1 Diabetes mellitus complication detail: with coma Qualified Code(s): E10.11 - Type 1 diabetes mellitus with ketoacidosis with coma (2) Metabolic encephalopathy Code(s): G93.41 - METABOLIC ENCEPHALOPATHY (3) Pneumonia Code(s): J18.9 - PNEUMONIA, UNSPECIFIED ORGANISM Qualifiers: Pneumonia type: due to unspecified organism Laterality: bilateral Lung location: upper lobe of lung Qualified Code(s): J18.9 - Pneumonia, unspecified organism (4) Respiratory failure with hypoxia Code(s): J96.91 - RESPIRATORY FAILURE, UNSPECIFIED WITH HYPOXIA Qualifiers: Chronicity: acute Qualified Code(s): J96.01 - Acute respiratory failure with hypoxia (5) Acute renal failure Code(s): N17.9 - ACUTE KIDNEY FAILURE, UNSPECIFIED Qualifiers: Acute renal failure type: unspecified Qualified Code(s): N17.9 - Acute kidney failure, unspecified (6) Diabetic gastroparesis associated with type 1 diabetes mellitus Code(s): E10.43 - TYPE 1 DIABETES W DIABETIC AUTONOMIC (POLY)NEUROPATHY K31.84 - GASTROPARESIS (7) Diabetic keto-acidosis Code(s): E13.10 - OTH DIABETES MELLITUS WITH KETOACIDOSIS WITHOUT COMA (8) High anion gap metabolic acidosis Code(s): E87.2 - ACIDOSIS (9) Lactic acid acidosis Code(s): E87.2 - ACIDOSIS (10) Renal failure (ARF), acute on chronic Code(s): N17.9 - ACUTE KIDNEY FAILURE, UNSPECIFIED N18.9 - CHRONIC KIDNEY DISEASE, UNSPECIFIED Assessment/Plan Acute Respiratory Failure Pneumonia Diabetic Ketoacidosis Severe Metabolic Acidosis Acute Kidney Injury Lactic Acidosis Noncompliance plan contiue current mgmt will stop iv abx tomorrow will switch to oral antifungal continue controlling blod sugars rest as per primary
[2016-11-16] MEDS: FLUCONAZOLE 100 MG TABLET (UD) PO SCH (18:18)
[2016-11-16] MEDS: ALBUTEROL SO4 2.5/IPRATROPIUM 0.5 INH SOL 3 ML VIAL.NEB. NEB SCH ×2 (18:30→23:44)
[2016-11-16] MEDS: CHLORHEXIDINE GLUCONATE 4% CLEANSER FOR DECOLONIZATION TP SCH (21:03)
[2016-11-16] MEDS ORDERED: METOCLOPRAMIDE HCL INJECTION 10 MG/2 ML VIAL IVPB PRN (21:07)
[2016-11-16] MEDS ORDERED: ZOLPIDEM TARTRATE 5 MG TABLET PO PRN (22:00)
[2016-11-16] MEDS: diphenhydrAMINE HCL 25 MG CAPSULE (FP) PO PRN (23:24)
[2016-11-17] MEDS: PIPERACILLIN/TAZOB 3.375 GM/50 ML PRE-DOCKED IVPB SCH ×3 (01:26→17:06)
[2016-11-17] MEDS: SODIUM CHLORIDE 0.9%/KCL 1,000 ML IV SCH (03:18)
[2016-11-17] MEDS: INSULIN SLIDING SCALE (NOVOLOG) 1 VIAL SQ SCH ×4 (06:11→21:16)
[2016-11-17] MEDS: ALBUTEROL SO4 2.5/IPRATROPIUM 0.5 INH SOL 3 ML VIAL.NEB. NEB SCH ×4 (07:02→23:24)
[2016-11-17 07:50] LABS: BASOPHIL 0.5 % (0-2.0); EOSINOPHIL 0.9 % (0-4.5); MCH 30.9 pg (25.7-33.7); MCHC 33.1 g/dl (32.0-36.0); MEAN CELL VOLUME 93.2 fl (80-96); MEAN PLT VOLUME 7.4 fl (7.5-11.1); NEUTROPHILS 62.8 % (42.8-82.8); PLATELET COUNT 468 K/MM3 (134-434); RDW 14.4 % (11.6-15.6); WHITE BLOOD COUNT 11.2 K/mm3 (4.0-10.0)
[2016-11-17 08:27] LABS: ALBUMIN 2.3 g/dl (3.4-5.0); ANION GAP 12 (8-16); BILIRUBIN,TOTAL 0.2 mg/dL (0.2-1.0); CALCIUM 7.9 mg/dL (8.5-10.1); CO2 25 mmol/L (21-32); COCKROFT - GAULT 129.7865; CREATININE 0.5 mg/dL (0.55-1.02); GLUCOSE,RANDOM 129 mg/dL (74-106); SGOT/AST 31 U/L (15-37); SGPT/ALT 30 U/L (12-78); TOT PROT 5.3 g/dl (6.4-8.2)
[2016-11-17 08:28] LABS: ALK PHOS 150 U/L (45-117)
[2016-11-17] MEDS ORDERED: PT OWN MED DRAWER 7, Y5N ONE (09:11)
[2016-11-17] MEDS: FAMOTIDINE 20 MG/50 ML IVPB 50 ML IVPB SCH ×2 (09:24→21:17)
[2016-11-17] MEDS: FLUCONAZOLE 100 MG TABLET (UD) PO SCH (09:24)
[2016-11-17] MEDS: CHLORHEXIDINE GLUCONATE 0.12% 15ML CUP MM SCH ×2 (09:24→21:17)
[2016-11-17] MEDS: HEPARIN NA (PORCINE) 5,000 UNITS/ML 1ML VIAL SQ SCH ×2 (09:24→21:16)
[2016-11-17] MEDS: NAPH,MB-DB/K PH,MBDB POWDER PACKET NGT SCH ×2 (09:25→21:18)
[2016-11-17] MEDS ORDERED: POTASSIUM CHLORIDE TABS 20 MEQ TABLET.ER (FP) PO ONE (09:45)
--- NOTE | 2016-11-17 14:08 | PN ---
Physical Exam: SUBJECTIVE: Patient seen and examined. She states she is having insomnia @ night. Other odom states she feels well, tolerating room air. OBJECTIVE: Hypoglycemic in a.m., will decrease Levemir Ambien added as scheduled for insomnia Incentive spirometer Vital Signs Period Temp Pulse Resp BP Sys/Rapp Pulse Ox Last 24 Hr 98.0 F-99.3 F 73-76 18-20 139-159/72-82 95-98 GENERAL: Extubated on 11/14, tolerating room but, 2 liters NC prn HEAD: Normal with no signs of trauma. EYES: PERRL, extraocular movements intact, sclera anicteric, conjunctiva clear. No ptosis. ENT: Ears normal, nares patent, oropharynx clear without exudates, moist mucous membranes. NECK: Trachea midline, full range of motion, supple. LUNGS: lungs clear to auscultation HEART: Regular rate and rhythm, ABDOMEN: Soft, nontender, nondistended, normoactive bowel sounds EXTREMITIES: bilateral hands with non pitting edema NEUROLOGICAL: Awake and alert PSYCH: Normal mood, normal affect. SKIN: Warm, dry, normal turgor, no rashes or lesions noted Laboratory Results - last 24 hr 11/16/16 11/17/16 11/17/16 21:15 06:05 06:44 WBC RBC Hgb Hct MCV MCHC RDW Plt Count MPV Neutrophils % Lymphocytes % Monocytes % Eosinophils % Basophils % Sodium Potassium Chloride Carbon Dioxide Anion Gap BUN Creatinine Creat Clearance w eGFR POC Glucometer 270 55 107 Random Glucose Calcium Total Bilirubin AST ALT Alkaline Phosphatase Total Protein Albumin 11/17/16 11/17/16 11/17/16 07:00 07:00 11:23 WBC 11.2 H RBC 2.80 L Hgb 8.7 L Hct 26.1 L MCV 93.2 MCHC 33.1 RDW 14.4 Plt Count 468 H MPV 7.4 L Neutrophils % 62.8 Lymphocytes % 26.6 Monocytes % 9.2 Eosinophils % 0.9 Basophils % 0.5 Sodium 143 Potassium 3.3 L Chloride 106 Carbon Dioxide 25 Anion Gap 12 BUN 12 Creatinine 0.5 L Creat Clearance w eGFR > 60 POC Glucometer 381 Random Glucose 129 H Calcium 7.9 L Total Bilirubin 0.2 D AST 31 D ALT 30 Alkaline Phosphatase 150 H Total Protein 5.3 L Albumin 2.3 L Active Medications Generic Name Dose Route Start Last Admin Trade Name Freq PRN Reason Stop Dose Admin Acetaminophen 650 mg 11/10/16 14:45 11/16/16 14:26 Tylenol - PO 650 mg Q4H PRN Administration FEVER OR PAIN Albuterol/Ipratropium 1 amp 11/16/16 12:45 11/17/16 11:13 Duoneb - NEB Not Given QIDR [facility] Chlorhexidine Gluconate 1 applic 11/09/16 22:00 11/16/16 21:03 Hibiclens For Decolonization - TP Not Given HS [facility] Chlorhexidine Gluconate 15 ml 11/11/16 22:00 11/17/16 09:24 Peridex - MM Not Given BID [facility] Diphenhydramine HCl 25 mg 11/16/16 23:11 11/16/16 23:24 Benadryl - PO 25 mg HS PRN Administration INSOMNIA Fluconazole 100 mg 11/16/16 18:00 11/17/16 09:24 Diflucan - PO 100 mg DAILY [facility] Administration Heparin Sodium (Porcine) 5,000 unit 11/10/16 22:00 11/17/16 09:24 Heparin - SQ 5,000 unit BID [facility] Administration Famotidine/Sodium Chloride 50 mls @ 100 mls/hr 11/09/16 22:00 11/17/16 09:24 Pepcid 20 Mg Premixed Ivpb - IVPB 100 mls/hr BID [facility] Administration Potassium Chloride/Sodium Chloride 1,000 mls @ 100 mls/hr 11/15/16 20:00 03:18 Ns+20 Meq Kcl - IV 100 mls/hr ASDIR [facility] Administration Insulin Aspart 1 vial 11/16/16 17:12 11/17/16 11:24 Novolog Vial Sliding Scale - SQ 10 units ACHS [facility] Administration Protocol Insulin Detemir 10 units 11/17/16 13:05 Levemir Vial SQ HS [facility] Lorazepam 2 mg 11/14/16 18:37 11/14/16 22:28 Ativan Injection - IVPUSH 2 mg Q2H PRN Administration AGITATION Metoclopramide HCl 10 mg 11/16/16 21:07 Reglan Injection - IVPB 11/17/16 23:59 Q6H PRN NAUSEA AND/OR VOMITING Oxycodone HCl 5 mg 11/16/16 14:00 11/16/16 14:30 Roxicodone - PO 5 mg Q4H PRN Administration PAIN Piperacillin Sod/Tazobactam Sod 3.375 gm 11/10/16 11:30 11/17/16 09:24 Zosyn 3.375gm Ivpb (Pre-Docked) IVPB 3.375 gm Q8H-IV [facility] Administration Protocol Potassium Phos/Sodium Phos 1 packet 11/13/16 22:00 11/17/16 09:25 Phos-Nak Packet - NGT 1 packet BID [facility] Administration Zolpidem Tartrate 5 mg 11/17/16 22:00 Ambien - PO HS PRN ASSESSMENT/PLAN: Patient is a 46 year old female with a significant past medical history of IDDM with non compliance, DKA, gastroparesis and polysubstance abuse. She presented to the ED on complaints of nausea and vomiting and was found to be in severe DKA with a glucose greater than 1000, severe metabolic acidosis with positive ketones, WBC on admission was 28.8 with lactic acidosis at 6.4. She was admitted to the ICU and was intubated. She is s/p extubation on and was transferred to a medical surgical floor on 11/15. Echocardiogram 11/13/2016: No obvious vegetation ID/Pulmonary: Severe Sepsis secondary to Pneumonia with acute hypoxemic respiratory failure - improved Assessment/Plan: Lactic acidosis resolved, WBC bumped up but she remains afebrile On antibiotics of Zosyn since 11/10, Azithromycin 11/09 and Clindamycin added on , antifungal iv changed to PO Repeat blood culture and urine negative Incentive spirometer oxygen 2 liters prn ID following Renal: GIANCARLO in the setting of sepsis - resolved Now resolved, monitor with BMP Endocrine: DKA/IDDM/with severe hyperglycemia on admission Assessment/Plan: Anion gap closed monitor BGMs, hypoglycemic in a.m., will decrease Levemir Hematology: Anemia - acute Assessment/Plan: likely dilutional, Monitor CBC F.E.N. Fluids: Will d/c ivf, patient is tolerating diet Electrolytes: monitor with daily bmp. Phos ashleigh BID Hypokalemia - 40meq K x 1 Nutrition: Tolerating diabetic diet Prophylaxis: GI: On pepcid BID DVT: SCDs, Heparin BID Disposition: Continues to require inpatient hospitalization. Full Code. Visit type - Emergency Visit Emergency Visit: Yes ED Registration Date: 11/09/16 Care time: The patient presented to the Emergency Department on the above date and was hospitalized for further evaluation of their emergent condition. - New Patient This patient is new to me today: No - Critical Care Critical Care patient: No - Discharge Referral Referred to [facility] No
[2016-11-17] MEDS: ACETAMINOPHEN 325 MG TABLET (FP) PO PRN ×2 (14:09→18:07)
--- NOTE | 2016-11-17 18:30 | PN ---
Mental Health Exam - Mental Status Exam Alert and Oriented to: Time, Place, Person Cognitive Function: Grossly Intact Patient Appearance: Well Groomed Mood: Irritable ("i am in a lousy mood") Affect: Mood Congruent, Euthymic Patient Behavior: Talkative, Cooperative Speech Pattern: Clear Voice Loudness: Normal Thought Process: Intact, Goal Oriented ("me and my mom fallon go to [facility]") Thought Disorder: Not Present Hallucinations: None Suicidal Ideation: None, Denies, No Plan Homicidal Ideation: None, Denies, No Plan Insight/Judgement: Fair Sleep: Poorly ("need sleep aid") Appetite: Good Muscle strength/Tone: Mild Hypertonicity Gait/Station: Deferred (Patient will have PT in am.)
--- NOTE | 2016-11-17 18:50 | PN ---
Progress Note, Physician Chief Complaint: "i am in a lousy mood, i anm addicted to narcotic pain meds for over may years, whe i get ill i am unable to care for my Diabetes" - Current Medication List Current Medications: Active Medications Acetaminophen (Tylenol -) 650 mg PO Q4H PRN PRN Reason: FEVER OR PAIN Last Admin: 11/17/16 18:07 Dose: 650 mg Albuterol/Ipratropium (Duoneb -) 1 amp NEB QIDR [facility] Last Admin: 11/17/16 18:14 Dose: 1 amp Chlorhexidine Gluconate (Hibiclens For Decolonization -) 1 applic TP HS [facility] Last Admin: 11/16/16 21:03 Dose: Not Given Chlorhexidine Gluconate (Peridex -) 15 ml MM BID [facility] Last Admin: 11/17/16 09:24 Dose: Not Given Diphenhydramine HCl (Benadryl -) 25 mg PO HS PRN PRN Reason: INSOMNIA Last Admin: 11/16/16 23:24 Dose: 25 mg Fluconazole (Diflucan -) 100 mg PO DAILY [facility] Last Admin: 11/17/16 09:24 Dose: 100 mg Heparin Sodium (Porcine) (Heparin -) 5,000 unit SQ BID [facility] Last Admin: 11/17/16 09:24 Dose: 5,000 unit Famotidine/Sodium Chloride (Pepcid 20 Mg Premixed Ivpb -) 50 mls @ 100 mls/hr IVPB BID [facility] Last Admin: 11/17/16 09:24 Dose: 100 mls/hr Insulin Aspart (Novolog Vial Sliding Scale -) 1 vial SQ ACHS [facility] PRN Reason: Protocol Last Admin: 11/17/16 17:04 Dose: 10 units Insulin Detemir (Levemir Vial) 10 units SQ HS [facility] Metoclopramide HCl (Reglan Injection -) 10 mg IVPB Q6H PRN PRN Reason: NAUSEA AND/OR VOMITING Stop: 11/17/16 23:59 Last Admin: 11/17/16 18:09 Dose: 10 mg Oxycodone HCl (Roxicodone -) 5 mg PO Q4H PRN PRN Reason: PAIN Last Admin: 11/16/16 14:30 Dose: 5 mg Piperacillin Sod/Tazobactam Sod (Zosyn 3.375gm Ivpb (Pre-Docked)) 3.375 gm IVPB Q8H-IV [facility] PRN Reason: Protocol Last Admin: 11/17/16 17:06 Dose: 3.375 gm Potassium Phos/Sodium Phos (Phos-Nak Packet -) 1 packet NGT BID [facility] Last Admin: 11/17/16 09:25 Dose: 1 packet Zolpidem Tartrate (Ambien -) 5 mg PO HS PRN - Objective Vital Signs: Vital Signs Temperature 98.9 F 11/17/16 17:44 Pulse Rate 69 11/17/16 17:44 Respiratory Rate 20 11/17/16 17:44 Blood Pressure 143/63 11/17/16 17:44 O2 Sat by Pulse Oximetry (%) 98 11/17/16 09:00 Labs: CBC, BMP 11/17/16 07:00 11/17/16 07:00 INR, PTT INR 1.07 (0.82-1.09) 11/09/16 06:54 Problem List - Problems (1) Altered mental status Code(s): R41.82 - ALTERED MENTAL STATUS, UNSPECIFIED Assessment/Plan Client is 46 yo female resides with boyfriend pet dog also, currently permanent disable due to unstable DM. Consult call ed for HX substance use and alter mental status. Smoke marijuana almost daily, denies heroin or cocaine, social drinker. taking up to 4 oxycodone a day, fentayl and ms contin more recently for many years. Previous hospitalizations for crises with Opoids in [place] also. Client has no psychiatric history, no history of taking psych meds. More secluded of late, denies Si, HI, AH at present. stated "i have not slept a night here", noted her eyes wide open, stated she has detox while at [place]. Aware of danger when using opiates, not caring for DM, "i could next time". currently on ambien 5mg, for insomnia. ativan 2mg im for agitation. Appetite has improved, she is goal directed to stay off cigarettes (1 pack a day smoker >25 yrs). refused nicotine aide. Offered low dose SSRI for anxiety/depression but refused at present. Will attend substa awareness groups, in action mode of motovation to change. Spoke with Rn on floor this pm. Thanks for consult.
[2016-11-17] MEDS ORDERED: INSULIN (NOVOLOG) ASPART 100 UNITS/ML 10ML VIAL ONE (21:08)
[2016-11-17] MEDS: INSULIN DETEMIR 100 UNITS/ML MDV SQ SCH (21:15)
[2016-11-17] MEDS: ZOLPIDEM TARTRATE 5 MG TABLET PO PRN (21:16)
[2016-11-17] MEDS: CHLORHEXIDINE GLUCONATE 4% CLEANSER FOR DECOLONIZATION TP SCH (21:16)
[2016-11-18] MEDS: PIPERACILLIN/TAZOB 3.375 GM/50 ML PRE-DOCKED IVPB SCH (03:03)
[2016-11-18] MEDS: INSULIN SLIDING SCALE (NOVOLOG) 1 VIAL SQ SCH ×4 (06:32→20:59)
[2016-11-18] MEDS: ALBUTEROL SO4 2.5/IPRATROPIUM 0.5 INH SOL 3 ML VIAL.NEB. NEB SCH ×2 (06:55→11:40)
[2016-11-18 07:32] LABS: BASOPHIL 0.8 % (0-2.0); EOSINOPHIL 1.3 % (0-4.5); MCHC 34.3 g/dl (32.0-36.0); MEAN CELL VOLUME 93.3 fl (80-96); MEAN PLT VOLUME 7.4 fl (7.5-11.1); NEUTROPHILS 60.5 % (42.8-82.8); PLATELET COUNT 552 K/MM3 (134-434); RDW 14.4 % (11.6-15.6); WHITE BLOOD COUNT 9.6 K/mm3 (4.0-10.0)
[2016-11-18 08:25] LABS: ALBUMIN 2.6 g/dl (3.4-5.0); ANION GAP 13 (8-16); CALCIUM 8.5 mg/dL (8.5-10.1); CO2 27 mmol/L (21-32); GLUCOSE,RANDOM 103 mg/dL (74-106)
[2016-11-18 08:29] LABS: ALK PHOS 153 U/L (45-117); BILIRUBIN,TOTAL 0.4 mg/dL (0.2-1.0); CREATININE 0.7 mg/dL (0.55-1.02); SGOT/AST 24 U/L (15-37); SGPT/ALT 29 U/L (12-78)
[2016-11-18] MEDS: oxyCODONE HCL 5 MG TABLET PO PRN ×4 (09:40→22:12)
[2016-11-18] MEDS ORDERED: POTASSIUM CHLORIDE ORAL LIQUID 20 MEQ/15 ML ONE (09:40)
[2016-11-18] MEDS: FLUCONAZOLE 100 MG TABLET (UD) PO SCH (09:41)
[2016-11-18] MEDS: FAMOTIDINE 20 MG/50 ML IVPB 50 ML IVPB SCH ×2 (09:42→20:59)
[2016-11-18] MEDS: NAPH,MB-DB/K PH,MBDB POWDER PACKET NGT SCH ×2 (09:44→20:59)
[2016-11-18] MEDS ORDERED: POTASSIUM CHLORIDE ORAL LIQUID 20 MEQ/15 ML PO ONE (09:45)
[2016-11-18] MEDS ORDERED: PIPERACILLIN/TAZOB 3.375 GM/50 ML PRE-DOCKED IVPB SCH (10:00)
[2016-11-18] MEDS ORDERED: INSULIN (NOVOLOG) ASPART 100 UNITS/ML 10ML VIAL ONE ×3 (11:34→20:51)
--- NOTE | 2016-11-18 14:41 | PN ---
Physical Exam: SUBJECTIVE: Patient seen and examined. States she is feeling better. Patient in agreeing to see Dr. Doreen Tripp @ [facility] ([employer]) [phone] on discharge. OBJECTIVE: ID clearance prior to d/c Patient is tolerating room air Physical therapy ordered Fluctuating flood sugars Vital Signs Period Temp Pulse Resp BP Sys/Rapp Pulse Ox Last 24 Hr 98.3 F-98.9 F 65-76 20-20 139-143/63-88 97-98 GENERAL: Extubated on 11/14, tolerating room air HEAD: Normal with no signs of trauma. EYES: PERRL, extraocular movements intact, sclera anicteric, conjunctiva clear. No ptosis. ENT: Ears normal, nares patent, oropharynx clear without exudates, moist mucous membranes. NECK: Trachea midline, full range of motion, supple. LUNGS: lungs clear to auscultation HEART: Regular rate and rhythm, ABDOMEN: Soft, nontender, nondistended, normoactive bowel sounds EXTREMITIES: bilateral hands with non pitting edema NEUROLOGICAL: Awake and alert PSYCH: Normal mood, normal affect. SKIN: Warm, dry, normal turgor, no rashes or lesions noted Laboratory Results - last 24 hr 11/16/16 11/17/16 11/17/16 16:44 17:04 21:01 WBC RBC Hgb Hct MCV MCHC RDW Plt Count MPV Neutrophils % Lymphocytes % Monocytes % Eosinophils % Basophils % Sodium Potassium Chloride Carbon Dioxide Anion Gap BUN Creatinine Creat Clearance w eGFR POC Glucometer 413 357 333 Random Glucose Calcium Total Bilirubin AST ALT Alkaline Phosphatase Total Protein Albumin 11/18/16 11/18/16 11/18/16 01:45 05:30 06:30 WBC 9.6 RBC 3.04 L Hgb 9.7 L D Hct 28.3 L MCV 93.3 MCHC 34.3 RDW 14.4 Plt Count 552 H MPV 7.4 L Neutrophils % 60.5 Lymphocytes % 29.5 Monocytes % 7.9 Eosinophils % 1.3 Basophils % 0.8 Sodium Potassium Chloride Carbon Dioxide Anion Gap BUN Creatinine Creat Clearance w eGFR POC Glucometer 80 117 Random Glucose Calcium Total Bilirubin AST ALT Alkaline Phosphatase Total Protein Albumin 11/18/16 11/18/16 06:30 11:33 WBC RBC Hgb Hct MCV MCHC RDW Plt Count MPV Neutrophils % Lymphocytes % Monocytes % Eosinophils % Basophils % Sodium 144 Potassium 3.4 L Chloride 104 Carbon Dioxide 27 Anion Gap 13 BUN 9 D Creatinine 0.7 D Creat Clearance w eGFR > 60 POC Glucometer 269 Random Glucose 103 D Calcium 8.5 Total Bilirubin 0.4 D AST 24 D ALT 29 Alkaline Phosphatase 153 H Total Protein 6.0 L Albumin 2.6 L Active Medications Generic Name Dose Route Start Last Admin Trade Name Freq PRN Reason Stop Dose Admin Acetaminophen 650 mg 11/18/16 09:04 Tylenol - PO Q4H PRN FEVER OR PAIN Albuterol/Ipratropium 1 amp 11/16/16 12:45 11/18/16 11:40 Duoneb - NEB 1 amp QIDR [facility] Administration Diphenhydramine HCl 25 mg 11/16/16 23:11 11/16/16 23:24 Benadryl - PO 25 mg HS PRN Administration INSOMNIA Fluconazole 100 mg 11/16/16 18:00 11/18/16 09:41 Diflucan - PO 100 mg DAILY [facility] Administration Famotidine/Sodium Chloride 50 mls @ 100 mls/hr 11/18/16 10:00 11/18/16 09:42 Pepcid 20 Mg Premixed Ivpb - IVPB 100 mls/hr BID [facility] Administration Insulin Aspart 1 vial 11/16/16 17:12 11/18/16 11:36 Novolog Vial Sliding Scale - SQ 6 units ACHS [facility] Administration Protocol Insulin Detemir 10 units 11/17/16 13:05 11/17/16 21:15 Levemir Vial SQ 10 units HS [facility] Administration Oxycodone HCl 5 mg 11/16/16 14:00 11/18/16 13:36 Roxicodone - PO 5 mg Q4H PRN Administration PAIN Piperacillin Sod/Tazobactam Sod 3.375 gm 11/18/16 10:00 11/18/16 10:12 Zosyn 3.375gm Ivpb (Pre-Docked) IVPB 3.375 gm Q8H-IV [facility] Administration Protocol Potassium Phos/Sodium Phos 1 packet 11/18/16 10:00 11/18/16 09:44 Phos-Nak Packet - NGT 1 packet BID [facility] Administration Zolpidem Tartrate 5 mg 11/17/16 22:00 11/17/16 21:16 Ambien - PO 5 mg HS PRN Administration ASSESSMENT/PLAN: Patient is a 46 year old female with a significant past medical history of IDDM with non compliance, DKA, gastroparesis and polysubstance abuse. She presented to the ED on complaints of nausea and vomiting and was found to be in severe DKA with a glucose greater than 1000, severe metabolic acidosis with positive ketones, WBC on admission was 28.8 with lactic acidosis at 6.4. She was admitted to the ICU and was intubated. She is s/p extubation on and was transferred to a medical surgical floor on 11/15. Echocardiogram 11/13/2016: No obvious vegetation ID/Pulmonary: Severe Sepsis secondary to Pneumonia with acute hypoxemic respiratory failure - resolved Assessment/Plan: Lactic acidosis resolved, WBC with normal limits, afebrile On antibiotics of Zosyn since 11/10, Azithromycin 11/09 and Clindamycin added on , antifungal iv changed to PO Repeat blood culture and urine negative Incentive spirometer oxygen 2 liters prn ID following Renal: GIANCARLO in the setting of sepsis - resolved Now resolved, monitor with BMP Endocrine: DKA/IDDM/with severe hyperglycemia on admission Assessment/Plan: Anion gap closed monitor BGMs To follow up with It Consultant on discharge Hematology: Anemia - acute Assessment/Plan: likely dilutional, Monitor CBC F.E.N. Fluids: tolerating diet Electrolytes: monitor with daily bmp. Phos ashleigh BID Hypokalemia - 40meq K x 1 Nutrition: Tolerating diabetic diet Prophylaxis: GI: On pepcid BID DVT: SCDs, Heparin BID Disposition: Continues to require inpatient hospitalization. Full Code. Visit type - Emergency Visit Emergency Visit: Yes ED Registration Date: 11/09/16 Care time: The patient presented to the Emergency Department on the above date and was hospitalized for further evaluation of their emergent condition. - New Patient This patient is new to me today: No - Critical Care Critical Care patient: No - Discharge Referral [facility]erred [facility] No
--- NOTE | 2016-11-18 16:40 | PN ---
Progress Note, Physician History of Present Illness: stable no new issues - Current Medication List Current Medications: Active Medications Acetaminophen (Tylenol -) 650 mg PO Q4H PRN PRN Reason: FEVER OR PAIN Albuterol/Ipratropium (Duoneb -) 1 amp NEB QIDR [facility] Last Admin: 11/18/16 11:40 Dose: 1 amp Diphenhydramine HCl (Benadryl -) 25 mg PO HS PRN PRN Reason: INSOMNIA Last Admin: 11/16/16 23:24 Dose: 25 mg Fluconazole (Diflucan -) 100 mg PO DAILY [facility] Last Admin: 11/18/16 09:41 Dose: 100 mg Famotidine/Sodium Chloride (Pepcid 20 Mg Premixed Ivpb -) 50 mls @ 100 mls/hr IVPB BID [facility] Last Admin: 11/18/16 09:42 Dose: 100 mls/hr Insulin Aspart (Novolog Vial Sliding Scale -) 1 vial SQ [facility] PRN Reason: Protocol Last Admin: 11/18/16 16:25 Dose: 10 units Insulin Detemir (Levemir Vial) 10 units SQ [facility] Last Admin: 11/17/16 21:15 Dose: 10 units Oxycodone HCl (Roxicodone -) 5 mg PO Q4H PRN PRN Reason: PAIN Last Admin: 11/18/16 13:36 Dose: 5 mg Potassium Phos/Sodium Phos (Phos-Nak Packet -) 1 packet NGT BID [facility] Last Admin: 11/18/16 09:44 Dose: 1 packet Zolpidem Tartrate (Ambien -) 5 mg PO HS PRN Last Admin: 11/17/16 21:16 Dose: 5 mg - Objective Vital Signs: Vital Signs Temperature 98.6 F 11/18/16 14:10 Pulse Rate 76 11/18/16 14:10 Respiratory Rate 20 11/18/16 09:00 Blood Pressure 141/88 11/18/16 14:10 O2 Sat by Pulse Oximetry (%) 97 11/18/16 11:40 Constitutional: Yes: No Distress, Calm Cardiovascular: Yes: Regular Rate and Rhythm Respiratory: Yes: Regular, CTA Bilaterally Musculoskeletal: Yes: WNL Extremities: Yes: WNL Neurological: Yes: Alert, Oriented Psychiatric: Yes: Alert, Oriented Labs: CBC, BMP 11/18/16 06:30 11/18/16 06:30 INR, PTT INR 1.07 (0.82-1.09) 11/09/16 06:54 Assessment/Plan also because of her non compliance in controlling blood sugar,when the patient came in she was in diabetic acidosis Problem List - Problems (1) DKA (diabetic ketoacidoses) Code(s): E13.10 - OTH DIABETES MELLITUS WITH KETOACIDOSIS WITHOUT COMA Qualifiers: Diabetes mellitus type: type 1 Diabetes mellitus complication detail: with coma Qualified Code(s): E10.11 - Type 1 diabetes mellitus with ketoacidosis with coma (2) Metabolic encephalopathy Code(s): G93.41 - METABOLIC ENCEPHALOPATHY (3) Pneumonia Code(s): J18.9 - PNEUMONIA, UNSPECIFIED ORGANISM Qualifiers: Pneumonia type: due to unspecified organism Laterality: bilateral Lung location: upper lobe of lung Qualified Code(s): J18.9 - Pneumonia, unspecified organism (4) Respiratory failure with hypoxia Code(s): J96.91 - RESPIRATORY FAILURE, UNSPECIFIED WITH HYPOXIA Qualifiers: Chronicity: acute Qualified Code(s): J96.01 - Acute respiratory failure with hypoxia (5) Acute renal failure Code(s): N17.9 - ACUTE KIDNEY FAILURE, UNSPECIFIED Qualifiers: Acute renal failure type: unspecified Qualified Code(s): N17.9 - Acute kidney failure, unspecified (6) Diabetic gastroparesis associated with type 1 diabetes mellitus Code(s): E10.43 - TYPE 1 DIABETES W DIABETIC AUTONOMIC (POLY)NEUROPATHY K31.84 - GASTROPARESIS (7) Diabetic keto-acidosis Code(s): E13.10 - OTH DIABETES MELLITUS WITH KETOACIDOSIS WITHOUT COMA (8) High anion gap metabolic acidosis Code(s): E87.2 - ACIDOSIS (9) Lactic acid acidosis Code(s): E87.2 - ACIDOSIS (10) Renal failure (ARF), acute on chronic Code(s): N17.9 - ACUTE KIDNEY FAILURE, UNSPECIFIED N18.9 - CHRONIC KIDNEY DISEASE, UNSPECIFIED Assessment/Plan Acute Respiratory Failure Pneumonia Diabetic Ketoacidosis Severe Metabolic Acidosis Acute Kidney Injury Lactic Acidosis Noncompliance plan contiue current mgmt stopped all abx continue oral antifungal rest as per primary
[2016-11-18] MEDS: ACETAMINOPHEN 325 MG TABLET (FP) PO PRN (20:55)
[2016-11-18] MEDS: INSULIN DETEMIR 100 UNITS/ML MDV SQ SCH (20:59)
[2016-11-18] MEDS ORDERED: IBUPROFEN 600 MG TABLET (FP) PO ONE (23:39)
[2016-11-19] MEDS: diphenhydrAMINE HCL 25 MG CAPSULE (FP) PO PRN (00:06)
[2016-11-19] MEDS: ZOLPIDEM TARTRATE 5 MG TABLET PO PRN (01:02)
[2016-11-19] MEDS: ALBUTEROL SO4 2.5/IPRATROPIUM 0.5 INH SOL 3 ML VIAL.NEB. NEB SCH ×3 (06:30→11:45)
[2016-11-19] MEDS: INSULIN SLIDING SCALE (NOVOLOG) 1 VIAL SQ SCH ×2 (08:01→11:41)
[2016-11-19] MEDS: oxyCODONE HCL 5 MG TABLET PO PRN (08:03)
--- NOTE | 2016-11-19 09:46 | PN ---
Progress Note, Physician History of Present Illness: doing well no issues - Current Medication List Current Medications: Active Medications Acetaminophen (Tylenol -) 650 mg PO Q4H PRN PRN Reason: FEVER OR PAIN Last Admin: 11/18/16 20:55 Dose: 650 mg Albuterol/Ipratropium (Duoneb -) 1 amp NEB QIDR [facility] Last Admin: 11/19/16 06:30 Dose: Not Given Diphenhydramine HCl (Benadryl -) 25 mg PO HS PRN PRN Reason: INSOMNIA Last Admin: 11/19/16 00:06 Dose: 25 mg Fluconazole (Diflucan -) 100 mg PO DAILY [facility] Last Admin: 11/18/16 09:41 Dose: 100 mg Famotidine/Sodium Chloride (Pepcid 20 Mg Premixed Ivpb -) 50 mls @ 100 mls/hr IVPB BID [facility] Last Admin: 11/18/16 20:59 Dose: 100 mls/hr Insulin Aspart (Novolog Vial Sliding Scale -) 1 vial SQ [facility] PRN Reason: Protocol Last Admin: 11/19/16 08:01 Dose: Not Given Insulin Detemir (Levemir Vial) 10 units SQ [facility] Last Admin: 11/18/16 20:59 Dose: 10 units Oxycodone HCl (Roxicodone -) 5 mg PO Q4H PRN PRN Reason: PAIN Last Admin: 11/19/16 08:03 Dose: 5 mg Potassium Phos/Sodium Phos (Phos-Nak Packet -) 1 packet NGT BID [facility] Last Admin: 11/18/16 20:59 Dose: 1 packet Zolpidem Tartrate (Ambien -) 5 mg PO HS PRN Last Admin: 11/19/16 01:02 Dose: 5 mg - Objective Vital Signs: Vital Signs Temperature 98.7 F 11/19/16 06:01 Pulse Rate 61 11/19/16 06:01 Respiratory Rate 21 11/19/16 06:01 Blood Pressure 122/65 11/19/16 06:01 O2 Sat by Pulse Oximetry (%) 97 11/18/16 21:00 Constitutional: Yes: No Distress, Calm Cardiovascular: Yes: Regular Rate and Rhythm Respiratory: Yes: Regular, CTA Bilaterally Musculoskeletal: Yes: WNL Extremities: Yes: WNL Neurological: Yes: Alert, Oriented Psychiatric: Yes: Alert, Oriented Labs: CBC, BMP 11/18/16 06:30 11/18/16 06:30 INR, PTT INR 1.07 (0.82-1.09) 11/09/16 06:54 Assessment/Plan also because of her non compliance in controlling blood sugar,when the patient came in she was in diabetic acidosis Problem List - Problems (1) DKA (diabetic ketoacidoses) Code(s): E13.10 - OTH DIABETES MELLITUS WITH KETOACIDOSIS WITHOUT COMA Qualifiers: Diabetes mellitus type: type 1 Diabetes mellitus complication detail: with coma Qualified Code(s): E10.11 - Type 1 diabetes mellitus with ketoacidosis with coma (2) Metabolic encephalopathy Code(s): G93.41 - METABOLIC ENCEPHALOPATHY (3) Pneumonia Code(s): J18.9 - PNEUMONIA, UNSPECIFIED ORGANISM Qualifiers: Pneumonia type: due to unspecified organism Laterality: bilateral Lung location: upper lobe of lung Qualified Code(s): J18.9 - Pneumonia, unspecified organism (4) Respiratory failure with hypoxia Code(s): J96.91 - RESPIRATORY FAILURE, UNSPECIFIED WITH HYPOXIA Qualifiers: Chronicity: acute Qualified Code(s): J96.01 - Acute respiratory failure with hypoxia (5) Acute renal failure Code(s): N17.9 - ACUTE KIDNEY FAILURE, UNSPECIFIED Qualifiers: Acute renal failure type: unspecified Qualified Code(s): N17.9 - Acute kidney failure, unspecified (6) Diabetic gastroparesis associated with type 1 diabetes mellitus Code(s): E10.43 - TYPE 1 DIABETES W DIABETIC AUTONOMIC (POLY)NEUROPATHY K31.84 - GASTROPARESIS (7) Diabetic keto-acidosis Code(s): E13.10 - OTH DIABETES MELLITUS WITH KETOACIDOSIS WITHOUT COMA (8) High anion gap metabolic acidosis Code(s): E87.2 - ACIDOSIS (9) Lactic acid acidosis Code(s): E87.2 - ACIDOSIS (10) Renal failure (ARF), acute on chronic Code(s): N17.9 - ACUTE KIDNEY FAILURE, UNSPECIFIED N18.9 - CHRONIC KIDNEY DISEASE, UNSPECIFIED Assessment/Plan Acute Respiratory Failure Pneumonia Diabetic Ketoacidosis Severe Metabolic Acidosis Acute Kidney Injury Lactic Acidosis Noncompliance plan contiue current mgmt can stop everything prevention main issue rest as per primary team
[2016-11-19 10:15] LABS: BASOPHIL 0.5 % (0-2.0); EOSINOPHIL 0.7 % (0-4.5); MCH 32.3 pg (25.7-33.7); MCHC 34.3 g/dl (32.0-36.0); MEAN CELL VOLUME 94.2 fl (80-96); MEAN PLT VOLUME 7.2 fl (7.5-11.1); NEUTROPHILS 67.7 % (42.8-82.8); PLATELET COUNT 540 K/MM3 (134-434); RDW 14.5 % (11.6-15.6); WHITE BLOOD COUNT 9.3 K/mm3 (4.0-10.0)
[2016-11-19 10:20] LABS: ALBUMIN 2.6 g/dl (3.4-5.0); ANION GAP 10 (8-16); CALCIUM 8.1 mg/dL (8.5-10.1); CO2 26 mmol/L (21-32); CREATININE 0.5 mg/dL (0.55-1.02); GLUCOSE,RANDOM 296 mg/dL (74-106); SGOT/AST 19 U/L (15-37); SGPT/ALT 26 U/L (12-78)
[2016-11-19 10:22] LABS: ALK PHOS 129 U/L (45-117); BILIRUBIN,TOTAL 0.3 mg/dL (0.2-1.0); TOT PROT 5.7 g/dl (6.4-8.2)
[2016-11-19] MEDS: FLUCONAZOLE 100 MG TABLET (UD) PO SCH (10:25)
[2016-11-19] MEDS: NAPH,MB-DB/K PH,MBDB POWDER PACKET NGT SCH (10:25)
[2016-11-19] MEDS: FAMOTIDINE 20 MG/50 ML IVPB 50 ML IVPB SCH (10:25)
[2016-11-19 11:07] VITALS: BP 112/58; PULSE 72; TEMP 97.5
[2016-11-19] MEDS: ACETAMINOPHEN 325 MG TABLET (FP) PO PRN (11:44)
--- NOTE | 2016-11-19 14:32 | DS ---
Physical Exam: SUBJECTIVE: Patient seen and examined. States she is feeling better, says she is ready to go home. Patient in agreeing to see Dr. Doreen Tripp @ [facility] (mat inspector) [phone] on discharge. OBJECTIVE: Patient is tolerating room air Fluctuating flood sugars Vital Signs Period Temp Pulse Resp BP Sys/Rapp Pulse Ox Last 24 Hr 97.5 F-99.8 F 61-77 20-21 112-122/58-65 97 PHYSICAL EXAM GENERAL: Extubated on 11/14, tolerating room air HEAD: Normal with no signs of trauma. EYES: PERRL, extraocular movements intact, sclera anicteric, conjunctiva clear. No ptosis. ENT: Ears normal, nares patent, oropharynx clear without exudates, moist mucous membranes. NECK: Trachea midline, full range of motion, supple. LUNGS: lungs clear to auscultation HEART: Regular rate and rhythm, ABDOMEN: Soft, nontender, nondistended, normoactive bowel sounds EXTREMITIES: bilateral hands with non pitting edema NEUROLOGICAL: Awake and alert PSYCH: Normal mood, normal affect. SKIN: Warm, dry, normal turgor, no rashes or lesions noted LABS Laboratory Results - last 24 hr 11/18/16 11/18/16 11/19/16 16:18 20:54 00:26 WBC RBC Hgb Hct MCV MCHC RDW Plt Count MPV Neutrophils % Lymphocytes % Monocytes % Eosinophils % Basophils % Sodium Potassium Chloride Carbon Dioxide Anion Gap BUN Creatinine Creat Clearance w eGFR POC Glucometer 382 378 152 Random Glucose Calcium Total Bilirubin AST ALT Alkaline Phosphatase Total Protein Albumin 11/19/16 11/19/16 11/19/16 06:03 06:50 09:50 WBC 9.3 RBC 2.93 L Hgb 9.5 L Hct 27.6 L MCV 94.2 MCHC 34.3 RDW 14.5 Plt Count 540 H MPV 7.2 L Neutrophils % 67.7 Lymphocytes % 25.1 Monocytes % 6.0 Eosinophils % 0.7 Basophils % 0.5 Sodium Potassium Chloride Carbon Dioxide Anion Gap BUN Creatinine Creat Clearance w eGFR POC Glucometer 54 100 Random Glucose Calcium Total Bilirubin AST ALT Alkaline Phosphatase Total Protein Albumin 11/19/16 11/19/16 09:50 11:40 WBC RBC Hgb Hct MCV MCHC RDW Plt Count MPV Neutrophils % Lymphocytes % Monocytes % Eosinophils % Basophils % Sodium 137 Potassium 3.8 Chloride 101 Carbon Dioxide 26 Anion Gap 10 BUN 10 Creatinine 0.5 L D Creat Clearance w eGFR > 60 POC Glucometer 365 Random Glucose 296 H D Calcium 8.1 L Total Bilirubin 0.3 D AST 19 D ALT 26 Alkaline Phosphatase 129 H Total Protein 5.7 L Albumin 2.6 L HOSPITAL COURSE: Date of Admission:11/09/16 Date of Discharge: 11/19/16 Patient is a 46 year old female with a significant past medical history of IDDM with non compliance, DKA, gastroparesis and polysubstance abuse. She presented to the ED on complaints of nausea and vomiting and was found to be in severe DKA with a glucose greater than 1000, severe metabolic acidosis with positive ketones, WBC on admission was 28.8 with lactic acidosis at 6.4. She was admitted to the ICU and was intubated. She is s/p extubation on and was transferred to a medical surgical floor on 11/15. She has remained stable on the medical surgical floor. Echocardiogram 11/13/2016: No obvious vegetation ID/Pulmonary: Severe Sepsis secondary to Pneumonia with acute hypoxemic respiratory failure - resolved Assessment/Plan: Lactic acidosis resolved, WBC with normal limits, afebrile Completed full course of IV antibiotics during hospitalization Repeat blood culture and urine negative Incentive spirometer encourged tolerating room air ID cleared patient for discharge Renal: GIANCARLO in the setting of sepsis - resolved Now resolved, monitor with BMP Endocrine: DKA/IDDM/with severe hyperglycemia on admission - chronic/follow up as an outpatient Assessment/Plan: Anion gap closed monitor BGMs, To follow up with [facility] on discharge - patient made an appointment for next week Hematology: Anemia - low/stable, repeat CBC with PCP Disposition: Discharge home with close PCP and [facility] follow up. Full Code. Minutes to complete discharge: 60 Discharge Summary Reason For Visit: DKA, PNA Condition: Improved - Instructions Diet, Activity, Other Instructions: Ms. Rosas: Please monitor your blood sugars before meals and at bedtime. Please keep a record of your blood sugars and bring them to your mat inspector , Dr. Doreen Tripp. Please see her within one week after discharge. Please return to the ER for any persistent or worsening symptoms. If you have any questions, please call me at [phone] VEE Georgesraza Davis @ [facility]. Referrals: Pa Heard MD [Primary Care Provider] - Disposition: HOME - Home Medications Comprehensive Discharge Medication List: Ambulatory Orders Morphine Sulfate [Ms Contin] 120 mg PO BID 06/20/15 Oxycodone HCl/Acetaminophen [Percocet 10-325 mg Tablet] 1 - 2 tab PO Q6H Insulin (Levemir) [Levemir Vial] 20 unit SQ HS #30 ml 12/07/15 Insulin Sliding Scale [Novolog Vial Sliding Scale -] See Protocol SQ AC 30 Days 12/07/15 Insulin Sliding Scale [Novolog Vial Sliding Scale -] See Protocol SQ AC 30 Days 12/07/15 Metoclopramide HCl [Reglan] 10 mg PO TID PRN #90 tablet 12/07/15 This patient is new to me today: No Emergency Visit: Yes ED Registration Date: 11/09/16 Care time: The patient presented to the Emergency Department on the above date and was hospitalized for further evaluation of their emergent condition. Critical Care patient: No - Discharge Referral Referred to [facility] No
== END 2016-11-19 12:34 | disposition home or self-care (01) | DRG 870 ==
LOC: FER 06:50 → JICU 11:19 → J6S 11-15 14:32
PROVIDERS: ADMIT Internal Medicine; ATTEND Nurse Practitioner Family
PROC: 5A1955Z Respiratory Ventilation, Greater than 96 Consecutive Hours (ICD-10-PCS; principal; 2016-11-09)
PROC: 0BH17EZ Insertion of Endotracheal Airway into Trachea, Via Natural or Artificial Opening (ICD-10-PCS; 2016-11-09)
PROC: 0DH67UZ Insertion of Feeding Device into Stomach, Via Natural or Artificial Opening (ICD-10-PCS; 2016-11-10)
PROC: 3E0G76Z Introduction of Nutritional Substance into Upper GI, Via Natural or Artificial Opening (ICD-10-PCS; 2016-11-13)
DX: A41.9 Sepsis, unspecified organism (principal); J18.9 Pneumonia, unspecified organism; J96.01 Acute respiratory failure with hypoxia; G93.41 Metabolic encephalopathy; E10.10 Type 1 diabetes mellitus with ketoacidosis without coma; E87.1 Hypo-osmolality and hyponatremia; E87.2 Acidosis; E87.3 Alkalosis; N17.9 Acute kidney failure, unspecified; D62 Acute posthemorrhagic anemia; M51.86 Other intervertebral disc disorders, lumbar region; E87.5 Hyperkalemia; I45.81 Long QT syndrome; R65.20 Severe sepsis without septic shock; Z91.14 Patient's other noncompliance with medication regimen; N18.9 Chronic kidney disease, unspecified; E83.39 Other disorders of phosphorus metabolism; E83.42 Hypomagnesemia; E83.51 Hypocalcemia; F32.9 Major depressive disorder, single episode, unspecified; E87.8 Other disorders of electrolyte and fluid balance, not elsewhere classified; E87.6 Hypokalemia; F12.10 Cannabis abuse, uncomplicated; F17.210 Nicotine dependence, cigarettes, uncomplicated
CPT/HCPCS: 36415; 36600; 71010-TC; 80048; 80053; 80307; 81003; 81015; 82009; 82550; 82553; 82803; 83036; 83605; 83735; 83880; 83930; 83935; 84100; 84484; 84703; 85025; 85027; 85610; 85730; 87040; 87070; 87086; 87205; 87254; 87804; 87899; 93005; 93010; 93306-TC; 94002; 94010; 94640; 97116-GP; 97161-GP; 99285-25; J0637; J1644

== ENCOUNTER 2016-12-21 13:00 | Inpatient (IN) | payer OTHER ==
[2016-12-21] MEDS ORDERED: SODIUM CHLORIDE 2,000 ML IV STA (13:01)
[2016-12-21] MEDS ORDERED: ONDANSETRON 4 MG/2 ML VIAL IVPB ONE (13:01)
--- NOTE | 2016-12-21 13:05 | PDOC ---
History of Present Illness - General Chief Complaint: Blood Sugar Problem Stated Complaint: DKA Time Seen by Provider: 12/21/16 13:01 History Source: Patient, Spouse Exam Limitations: No Limitations - History of Present Illness Initial Comments: 12/21/16 13:03 The patient is a 46-year-old female with a significant past medical history of type 1 diabetes, noncompliance with insulin, multiple admissions for DKA (the last one requiring ICU admission and intubation (, who presents to the emergency department with nausea, vomiting and generalized weakness for the past 2 days. She states that she was unable to check her blood sugar for the past several days because "her dog ate her glucometer" but suspects that her blood sugar has been high. She reports not using pump for almost 6 days and using intermittent humulog since that time. She reports a recent, mild dry cough. She states that because of the nausea and vomiting, she has not been able to take her Percocet and morphine, and suspects that she is "withdrawing." She denies any symptoms prior to yesterday morning. 12/21/16 13:56 Past History - Past Medical History Allergies/Adverse Reactions: Allergies Allergy/AdvReac Type Severity Reaction Status Date / Time No Known Allergies Allergy Verified 12/21/16 13:00 Home Medications: Ambulatory Orders Morphine Sulfate [Ms Contin] 120 mg PO BID 06/20/15 Oxycodone HCl/Acetaminophen [Percocet 10-325 mg Tablet] 1 - 2 tab PO Q6H Insulin (Levemir) [Levemir Vial] 20 unit SQ HS #30 ml 12/07/15 Insulin Sliding Scale [Novolog Vial Sliding Scale -] See Protocol SQ AC 30 Days 12/07/15 Diabetes: Yes (TYPE I, DKA) GI Disorders: Yes (GASTROPARESIS) Suicide Attempt (Hx): No - Surgical History Cholecystectomy: Yes (AGE 19) - Immunization History Td Vaccination: Yes Immunization Up to Date: Yes - Psycho/Social/Smoking Cessation Hx Anxiety: No Suicidal Ideation: No Smoking Status: Yes Smoking History: Unknown if ever smoked Years of Tobacco Use: 15 Have you smoked in the past 12 months: Yes Number of Cigarettes Smoked Daily: 20 'Breaking Loose' booklet given: 12/03/15 Hx Alcohol Use: No Drug/Substance Use Hx: Yes Substance Use Type: Opiates Hx Substance Use Treatment: No Review of Systems - Review of Systems Comments:: 12/21/16 13:03 CONSTITUTIONAL: Absent: fever, chills, Present: diaphoresis, generalized weakness, malaise, loss of appetite HEENT: Absent: rhinorrhea, nasal congestion, throat pain, throat swelling, difficulty swallowing, mouth swelling, ear pain, eye pain, visual Changes CARDIOVASCULAR: Absent: chest pain, loss of consciousness, palpitations, irregular heart rate, peripheral edema RESPIRATORY: Present: Cough Absent: shortness of breath, dyspnea with exertion, orthopnea, wheezing, stridor , hemoptysis GASTROINTESTINAL: Present: nausea, vomiting, Absent: abdominal pain, abdominal distension, diarrhea, constipation, melena, hematochezia GENITOURINARY: Absent: dysuria, frequency, urgency, hesitancy, hematuria, flank pain, genital pain MUSCULOSKELETAL: Absent: myalgia, arthralgia, joint swelling SKIN: Absent: rash, itching, pallor HEMATOLOGIC/IMMUNOLOGIC: Absent: easy bleeding, easy bruising, lymphadenopathy, frequent infections ENDOCRINE: Absent: unexplained weight gain, unexplained weight loss, heat intolerance, cold intolerance NEUROLOGIC: Absent: headache, focal weakness or paresthesias, dizziness, unsteady gait, seizure, mental status changes, bladder or bowel incontinence PSYCHIATRIC: Absent: anxiety, depression, suicidal or homicidal ideation, hallucinations. 12/21/16 13:15 *Physical Exam - Physical Exam Comments: 12/21/16 13:03 GENERAL: Well developed, well nourished. Awake and alert. No acute distress. HEENT: Dry mucous membranes Normocephalic, atraumatic. PERRLA, EOMI. No conjunctival pallor. Sclera are non- icteric. Oropharynx is clear. NECK: Supple. Full ROM. No JVD. Carotid pulses 2+ and symmetric, without bruits. No thyromegaly. No lymphadenopathy. CARDIOVASCULAR: Tachycardic rate and regular rhythm. No murmurs, rubs, or gallops. Distal pulses are 2+ and symmetric. PULMONARY: Tachypnea No evidence of respiratory distress. Lungs clear to auscultation bilaterally. No wheezing, rales or rhonchi. ABDOMINAL: Soft. Non-tender. Non-distended. No rebound or guarding. No organomegaly. Normoactive bowel sounds. MUSCULOSKELETAL Normal range of motion at all joints. No bony deformities or tenderness. No CVA tenderness. EXTREMITIES: No cyanosis. No clubbing. No edema. No calf tenderness. SKIN: Warm and dry. Normal capillary refill. No rashes. No jaundice. NEUROLOGICAL: Alert, awake, appropriate. Cranial nerves 2-12 intact. No deficits to light touch and temperature in face, upper extremities and lower extremities. No motor deficits in the in face, upper extremities and lower extremities. Normoreflexic in the upper and lower extremities. Normal speech. Toes are down- going bilaterally. Gait is normal without ataxia. PSYCHIATRIC: Cooperative. Good eye contact. Appropriate mood and affect. ED Treatment Course - LABORATORY CBC & Chemistry Diagram: 12/21/16 13:31 12/21/16 13:31 - RADIOLOGY Radiology Studies Ordered: Category Date Time Status CXRPORT [CHEST X-RAY PORTABLE*] [RAD] Stat Radiology 12/21/16 13:02 Ordered Medical Decision Making - Medical Decision Making 12/21/16 13:04 The patient is awake, alert, in no acute distress Given her history of type 1 diabetes and previous episodes of DKA, I am highly suspicious for DKA Will obtain labs Will begin fluid resuscitation with normal saline Will administer IV Zofran for antiemesis Will await potassium before administering insulin 12/21/16 13:15 IV has been placed Labs pending 12/21/16 14:06 Chest x-ray reading noted, significant improvement as compared to prior study There are persistent infiltrates, especially in the right upper lobe CBC noted with severe leukocytosis While there is no obvious source of infection, we will treat with broad- spectrum antibiotics given her severity of illness secondary to DKA, and inability to tolerate occult sepsis 12/21/16 14:09 12/21/16 14:29 Venous pH noted, 7.39 12/21/16 14:37 Labs noted including: Potassium of 3.8 Bicarbonate 17 Anion gap of 29 Laboratory Tests 11/09/16 12/21/16 12/21/16 08:51 13:31 13:31 VBG pH 7.39 Sodium 118 L* D Potassium 5.8 H D 3.8 D Carbon Dioxide 17 L D Anion Gap 29 H BUN 62 H D Creatinine 3.3 H D Random Glucose 506 H* D Despite the near-normal pH, she has clinical diabetic ketoacidosis Given her hyperkalemia, we will administer 40 mEq of oral potassium now as well as add potassium to her IV fluids Will not bolus with insulin and will start with low dose insulin, at 2 units per hour Will repeat potassium in one hour 12/21/16 14:40 Clinical impression: Diabetic ketoacidosis Relative hypokalemia Case discussed in detail with admitting provider including history, physical exam and ancillary studies. Admitting physician has assumed care for the patient, will follow all pending diagnostics and will complete the evaluation and treatment. 12/21/16 15:17 Lactic acid noted, 2.1 I was informed by [facility] star nurse Adrian aSntiago 12/21/16 15:30 The patient has refused oral potassium She displays the capacity to make her own decisions She is aware that refusal could result in fatal arrhythmia She said she would reconsider after some time Will continue IV potassium and readdress Nursing report conveyed the patient's refusal 12/21/16 15:45 Pt took 20mEq po potassium 12/21/16 17:20 Awaiting transportation arrival Repeating chemistries now *DC/Admit/Observation/Transfer Diagnosis at time of Disposition: DKA (diabetic ketoacidoses), High anion gap metabolic acidosis, Vomiting
[2016-12-21] MEDS ORDERED: ONDANSETRON 4 MG/2 ML VIAL ONE (13:10)
--- NOTE | 2016-12-21 13:26 | PDOC ---
History of Present Illness - General Chief Complaint: Blood Sugar Problem Stated Complaint: DKA Time Seen by Provider: 12/21/16 13:01 History Source: Patient Exam Limitations: No Limitations - History of Present Illness Initial Comments: 12/21/16 13:26 46 y/o female with hx of IDDM, poor compliance with insulin, multiple admissions for DKA, gastroparesis, last admitted in ICU a month ago in severe condition due to multilobar PNA and DKA (severe resp failure, intubated and paralyzed), who presents due to "DKA". She has not used her pump for 6 days because shes been unable to refill it due to her peripheral neuropathy and has not used any insulin for the past 2 days because her glucometer broke. She noticed that for the past 6 days her glucose has been climbing form baseline of 300 to 500 as she has been injecting herself with novolog sliding scale. 3 days ago she developed nausea, NBNB vomiting, diarrhea, abd pain and malaise. She has not been able to take her usual back pain meds due to PO intake intolerance. She denies chest pain, sob, f/c, dysuria, hematuria. 12/21/16 14:54 12/21/16 15:16 Past History - Past Medical History Allergies/Adverse Reactions: Allergies Allergy/AdvReac Type Severity Reaction Status Date / Time No Known Allergies Allergy Verified 12/21/16 13:00 Home Medications: Ambulatory Orders Morphine Sulfate [Ms Contin] 120 mg PO BID 06/20/15 Oxycodone HCl/Acetaminophen [Percocet 10-325 mg Tablet] 1 - 2 tab PO Q6H Insulin (Levemir) [Levemir Vial] 20 unit SQ HS #30 ml 12/07/15 Insulin Sliding Scale [Novolog Vial Sliding Scale -] See Protocol SQ AC 30 Days 12/07/15 Diabetes: Yes (TYPE I, DKA) GI Disorders: Yes (GASTROPARESIS) Suicide Attempt (Hx): No - Surgical History Cholecystectomy: Yes (AGE 19) - Immunization History Td Vaccination: Yes Immunization Up to Date: Yes - Psycho/Social/Smoking Cessation Hx Anxiety: No Suicidal Ideation: No Smoking Status: Yes Smoking History: Unknown if ever smoked Years of Tobacco Use: 15 Have you smoked in the past 12 months: Yes Number of Cigarettes Smoked Daily: 20 'Breaking Loose' booklet given: 12/03/15 Hx Alcohol Use: No Drug/Substance Use Hx: Yes Substance Use Type: Opiates Hx Substance Use Treatment: No Review of Systems - Review of Systems Able to Perform ROS?: Yes Is the patient limited Polish proficient: No Constitutional: Yes: Loss of Appetite, Malaise, Weakness. No: Chills, Fever, Night Sweats HEENTM: Yes: Throat Pain Respiratory: No: Cough, Orthopnea, Shortness of Breath Cardiac (ROS): No: Chest Pain, Edema, Irregular Heart Rate, Lightheadedness, Palpitations, Syncope ABD/GI: Yes: Diarrhea, Nausea, Vomiting. No: Abdominal Distended, Blood Streaked Bowels, Constipated, Difficulty Swallowing, Rectal Bleeding, Abdominal cramping, Tarry Stools : No: Dysuria, Flank Pain Musculoskeletal: Yes: Back Pain. No: Neck Pain Integumentary: No: Pruritus, Rash, Sweating Neurological: Yes: Numbness (fingers, toes ). No: Headache, Paresthesia Endocrine: No: Change in Weight Hematologic/Lymphatic: No: Anemia, Blood Clots, Easy Bleeding, Easy Bruising All Other Systems: Reviewed and Negative *Physical Exam - Physical Exam Comments: 12/21/16 15:18 General:moderate distress aaox3 HEENT: normocephalic atraumatic perrla eomi, sclera anicteric CV: rrr s1s2 Pulm:cta b/l GI:moderately tender diffusely, reduced bowel sounds, nondistended, soft, no mass, no cva tenderness Musculoskeletal: no edema, no bony deformities 12/21/16 15:29 Heart Score/ECG Review #1 ECG reviewed & interpreted by me at: 13:30 (mild st depressions in lateral leads ) General ECG Interpretation: Sinus Rhythm, Normal Rate, Normal Intervals ED Treatment Course - LABORATORY CBC & Chemistry Diagram: 12/21/16 13:31 12/21/16 13:31 Medical Decision Making - Medical Decision Making 12/21/16 15:31 Patient presents with clinical picture most consistent with DKA Start IVF bolus IV zofran, IV morphine CBC x diff, cmp, mag, lactic acid, vbg, u tox, lipase, cardiac profile, ua cxr 12/21/16 15:34 12/21/16 15:41 CXR improved but may still be residual infiltrate in RUL wbc 25.1, platelets 528, may be reactive/volume depletion but at this time SIRS and SEPSIS criteria is met, will start vanco and zosyn 12/21/16 15:43 VBG pH 7.39, per history sugar has been high for several days, patient likely compensating to explain absence of acidemia 12/21/16 15:45 K 3.8, gluc 506, hyponatremic. Will continue IVF and administer PO and IV K + large ketones in urine. Will start insulin drip 12/21/16 15:47 Patient to be admitted to ICU. contact hospitalist and ICU attending 12/21/16 16:57 *DC/Admit/Observation/Transfer Diagnosis at time of Disposition: DKA (diabetic ketoacidoses), High anion gap metabolic acidosis, Vomiting - Discharge Dispostion Admit: Yes
[2016-12-21] MEDS ORDERED: morphine CARPU-JECT 4 MG/1 ML DISP.SYRIN IVPUSH ONE ×3 (13:48→14:47)
[2016-12-21] MEDS ORDERED: morphine CARPU-JECT 2 MG/1 ML DISP.SYRIN ONE ×2 (13:49→14:15)
[2016-12-21] MEDS ORDERED: HEMOQUE TEST 1 EACH EACH ONE ×3 (13:51→16:05)
[2016-12-21 14:00] LABS: MCHC 35.2 g/dl (32.0-36.0); MEAN CELL VOLUME 88.1 fl (80-96); MEAN PLT VOLUME 8.4 fl (7.5-11.1); PLATELET COUNT 528 K/MM3 (134-434); RDW 14.8 % (11.6-15.6); WHITE BLOOD COUNT 25.1 K/mm3 (4.0-10.8)
[2016-12-21 14:02] VITALS: BMI 23.1
[2016-12-21] MEDS ORDERED: PIPERACILLIN/TAZOB 3.375 GM 3.375 GM in DEXTROSE 5%-WATER - 50 ML IVPB ONE (14:06)
[2016-12-21] MEDS ORDERED: PIPERACILLIN/TAZOBACTAM 3.375 GM VIAL IVPB ONE (14:16)
[2016-12-21 14:24] LABS: ALBUMIN 4.5 g/dl (3.5-5.0); ALK PHOS 105 U/L (32-92); ANION GAP 29 (8-16); BILIRUBIN,TOTAL 2.5 mg/dl (0.2-1.0); CALCIUM 9.5 mg/dl (8.4-10.2); CO2 17 mmol/L (22-28); CREATININE 1.3 mg/dl (0.6-1.3); SGOT/AST 16 U/L (10-42); SGPT/ALT 14 U/L (10-40); TOT PROT 8.1 g/dl (6.4-8.3)
[2016-12-21 14:25] LABS: PHOSPHOROUS 3.9 mg/dl (2.5-4.6)
[2016-12-21 14:26] LABS: VENOUS PH 7.39 (7.35-7.45)
[2016-12-21 14:27] LABS: VENOUS BLOOD GAS HCO3 17.4 meq/L (22-26)
[2016-12-21 14:29] LABS: GLUCOSE,RANDOM 506 mg/dl (74-106)
[2016-12-21] MEDS ORDERED: POTASSIUM CHLORIDE TABS 20 MEQ TABLET.ER (FP) PO ONE ×2 (14:36→14:42)
[2016-12-21] MEDS ORDERED: INSULIN REGULAR HUMAN 100 UNITS/ML *VIAL ONE (14:42)
[2016-12-21] MEDS ORDERED: KCL 10 MEQ IVPB 100 ML IVPB ONE ×2 (14:42→17:19)
[2016-12-21 14:45] LABS: TROPONIN I (DFP) 0.04 ng/ml (0.03-0.50)
[2016-12-21 14:45] LABS: URINE APPEARANCE Clear; URINE BILIRUBIN 1+ (NEGATIVE); URINE BLOOD Trace-intact (NEGATIVE); URINE GLUCOSE (UA) 2+ (NEGATIVE); URINE KETONE 4+ (NEGATIVE); URINE LEUK ESTERASE Negative (NEGATIVE); URINE NITRITE Negative (NEGATIVE); URINE UROBILINOGEN 0.2 E.U/dl (0.2-1.0)
[2016-12-21] MEDS ORDERED: INSULIN REGULAR 100 UNITS in SODIUM CHLORIDE 99 ML IVPB SCH ×2 (14:45→20:25)
[2016-12-21] MEDS ORDERED: POTASSIUM CHLORIDE 10 MEQ in SODIUM CHLORIDE 1,000 ML IVPB SCH (14:45)
[2016-12-21 14:46] LABS: URINE COLOR YELLOW; URINE PROTEIN 1+ (NEGATIVE)
[2016-12-21] MEDS ORDERED: morphine CARPU-JECT 4 MG/1 ML DISP.SYRIN ONE (15:04)
[2016-12-21 15:05] LABS: PLATELET ESTIMATE INCREASED (NORMAL)
[2016-12-21 15:10] LABS: URINE WBC 0-2 (3-5)
[2016-12-21 15:11] LABS: URINE BACTERIA FEW /hpf (NEGATIVE)
[2016-12-21] MEDS ORDERED: VANCOMYCIN 1,000 MG in DEXTROSE 5%-WATER - 250 ML IVPB SCH ×2 (15:15→22:00)
[2016-12-21] MEDS ORDERED: VANCOMYCIN 1,000 MG VIAL (RESTRICTED TO ID ONLY) ONE (15:24)
[2016-12-21] MEDS: KCL 10 MEQ IVPB 100 ML IVPB SCH ×3 (15:30→22:35)
[2016-12-21] MEDS ORDERED: VANCOMYCIN 1,000 MG in DEXTROSE 5%-WATER - 250 ML IVPB ONE (15:47)
[2016-12-21] MEDS ORDERED: METOCLOPRAMIDE HCL INJECTION 10 MG/2 ML VIAL IVPUSH ONE (15:58)
[2016-12-21 16:05] LABS: URINE MARIJUANA THC POSITIVE ng/ml (CUTOFF=50)
[2016-12-21] MEDS ORDERED: ACETAMINOPHEN 1000 MG/100 ML VIAL (NON FORMULARY) IVPB ONE (17:02)
[2016-12-21] MEDS ORDERED: ACETAMINOPHEN INJECTION 100 ML IVPB ONE (17:04)
[2016-12-21] MEDS ORDERED: KETOROLAC TROMETHAMINE 30 MG/1 ML VIAL IVPUSH ONE (17:58)
[2016-12-21] MEDS ORDERED: KETOROLAC TROMETHAMINE 30 MG/1 ML VIAL ONE (18:01)
[2016-12-21 18:06] LABS: ALBUMIN 3.9 g/dl (3.5-5.0); ALK PHOS 91 U/L (32-92); ANION GAP 23 (8-16); BILIRUBIN,TOTAL 1.9 mg/dl (0.2-1.0); CALCIUM 8.3 mg/dl (8.4-10.2); CO2 13 mmol/L (22-28); CREATININE 1.2 mg/dl (0.6-1.3); SGOT/AST 18 U/L (10-42); SGPT/ALT 16 U/L (10-40)
[2016-12-21 18:16] LABS: GLUCOSE,RANDOM 454 mg/dl (74-106)
--- NOTE | 2016-12-21 20:16 | PN ---
Teaching Attending Note Name of Resident: Hai Guerrero ATTENDING PHYSICIAN STATEMENT I saw and evaluated the patient, reviewed data, imaging, and chart. I reviewed the resident's note and discussed the case with the resident. I agree with the resident's findings and plan as documented except for modifications in attending note SUBJECTIVE: 46 woman with poorly controlled IDDM, chronic pain with opiate dependance, many admissions for DKA, was here 1 month ago with multilobar PNA. She presents to the ED with nausea/vomiting/malaise, found to be in DKA, she hasn't had insulin in several days. She has a leukocytosis, but no obvious source (CXR clear, UA negative) was given NS bolus, broad spectrum antibiotics and started on Insulin drip at 2units/hr and transferred to the ICU for further management. OBJECTIVE: PE Afebrile General- nontoxic appearing, AAox3 HEENT - no trauma, NC dry oral mucosa CV-s1+s+ systolic murmur CHest- CTA b/l ABdomen -soft, NT, no masses appreciated Ext - no edema Laboratory Results - last 24 hr 12/21/16 12/21/16 12/21/16 13:31 13:31 13:31 WBC RBC Hgb Hct MCV MCHC RDW Plt Count MPV Neutrophils % Lymphocytes % Monocytes % Band Neutrophils Platelet Estimate Platelet Comment Morphology Comment VBG pH POC VBG pCO2 POC VBG pO2 Mixed VBG HCO3 Sodium Potassium Chloride Carbon Dioxide Anion Gap BUN Creatinine Creat Clearance w eGFR POC Glucometer Random Glucose Lactic Acid 2.1 H* Calcium Phosphorus 3.9 D Magnesium 2.0 Total Bilirubin AST ALT Alkaline Phosphatase Creatine Kinase 46 Troponin I 0.04 Total Protein Albumin Lipase Urine Color Urine Appearance Urine pH Ur Specific [place] Urine Protein Urine Glucose (UA) Urine Ketones Urine Blood Urine Nitrite Urine Bilirubin Urine Urobilinogen Ur Leukocyte Esterase Urine RBC Urine WBC Urine Bacteria Urine HCG, Qual Opiates Screen Methadone Screen Barbiturate Screen Phencyclidine Screen Ur Amphetamines Screen MDMA (Ecstasy) Screen Benzodiazepines Screen Cocaine Screen U Marijuana (THC) Screen Acetone, Qual 12/21/16 12/21/16 12/21/16 13:31 13:31 13:31 WBC 25.1 H D RBC 4.51 Hgb 14.0 D Hct 39.8 MCV 88.1 MCHC 35.2 RDW 14.8 D Plt Count 528 H D MPV 8.4 Neutrophils % 87.0 H D Lymphocytes % 7.0 L D Monocytes % 4.0 Band Neutrophils 2.0 D Platelet Estimate Increased Platelet Comment Few large plts Morphology Comment Slide scanned VBG pH POC VBG pCO2 POC VBG pO2 Mixed VBG HCO3 Sodium 127 L Potassium 3.8 D Chloride 81 L D Carbon Dioxide 17 L D Anion Gap 29 H BUN 38 H D Creatinine 1.3 D Creat Clearance w eGFR 43.90 POC Glucometer Random Glucose 506 H* D Lactic Acid Calcium 9.5 D Phosphorus Magnesium Total Bilirubin 2.5 H AST 16 D ALT 14 D Alkaline Phosphatase 105 H Creatine Kinase Troponin I Total Protein 8.1 D Albumin 4.5 D Lipase 34 Urine Color Urine Appearance Urine pH Ur Specific [place] Urine Protein Urine Glucose (UA) Urine Ketones Urine Blood Urine Nitrite Urine Bilirubin Urine Urobilinogen Ur Leukocyte Esterase Urine RBC Urine WBC Urine Bacteria Urine HCG, Qual Opiates Screen Methadone Screen Barbiturate Screen Phencyclidine Screen Ur Amphetamines Screen MDMA (Ecstasy) Screen Benzodiazepines Screen Cocaine Screen U Marijuana (THC) Screen Acetone, Qual Positive large 3+ H 12/21/16 12/21/16 12/21/16 13:31 14:30 14:30 WBC RBC Hgb Hct MCV MCHC RDW Plt Count MPV Neutrophils % Lymphocytes % Monocytes % Band Neutrophils Platelet Estimate Platelet Comment Morphology Comment VBG pH 7.39 POC VBG pCO2 29.4 L D POC VBG pO2 53.4 L D Mixed VBG HCO3 17.4 L Sodium Potassium Chloride Carbon Dioxide Anion Gap BUN Creatinine Creat Clearance w eGFR POC Glucometer Random Glucose Lactic Acid Calcium Phosphorus Magnesium Total Bilirubin AST ALT Alkaline Phosphatase Creatine Kinase Troponin I Total Protein Albumin Lipase Urine Color Yellow Urine Appearance Clear Urine pH 5.0 Ur Specific [place] 1.020 Urine Protein 1+ H Urine Glucose (UA) 2+ H Urine Ketones 4+ H Urine Blood Trace-intact Urine Nitrite Negative Urine Bilirubin 1+ H Urine Urobilinogen 0.2 e.u/dl Ur Leukocyte Esterase Negative Urine RBC 2-3 Urine WBC 0-2 Urine Bacteria Few Urine HCG, Qual Negative Opiates Screen Methadone Screen Barbiturate Screen Phencyclidine Screen Ur Amphetamines Screen MDMA (Ecstasy) Screen Benzodiazepines Screen Cocaine Screen U Marijuana (THC) Screen Acetone, Qual 12/21/16 12/21/16 12/21/16 14:30 17:42 17:42 WBC RBC Hgb Hct MCV MCHC RDW Plt Count MPV Neutrophils % Lymphocytes % Monocytes % Band Neutrophils Platelet Estimate Platelet Comment Morphology Comment VBG pH POC VBG pCO2 POC VBG pO2 Mixed VBG HCO3 Sodium 128 L Potassium 4.0 Chloride 92 L D Carbon Dioxide 13 L D Anion Gap 23 H BUN 34 H Creatinine 1.2 Creat Clearance w eGFR 48.15 POC Glucometer Random Glucose 454 H* Lactic Acid 3.0 H* Calcium 8.3 L Phosphorus Magnesium Total Bilirubin 1.9 H D AST 18 ALT 16 Alkaline Phosphatase 91 Creatine Kinase Troponin I Total Protein 7.0 Albumin 3.9 Lipase Urine Color Urine Appearance Urine pH Ur Specific [place] Urine Protein Urine Glucose (UA) Urine Ketones Urine Blood Urine Nitrite Urine Bilirubin Urine Urobilinogen Ur Leukocyte Esterase Urine RBC Urine WBC Urine Bacteria Urine HCG, Qual Opiates Screen Positive Methadone Screen Negative Barbiturate Screen Negative Phencyclidine Screen Negative Ur Amphetamines Screen Negative MDMA (Ecstasy) Screen Negative Benzodiazepines Screen Negative Cocaine Screen Negative U Marijuana (THC) Screen Positive Acetone, Qual 12/21/16 12/21/16 12/21/16 20:18 20:18 20:49 WBC RBC Hgb Hct MCV MCHC RDW Plt Count MPV Neutrophils % Lymphocytes % Monocytes % Band Neutrophils Platelet Estimate Platelet Comment Morphology Comment VBG pH POC VBG pCO2 POC VBG pO2 Mixed VBG HCO3 Sodium 130 L Potassium 4.2 Chloride 96 L Carbon Dioxide 14 L D Anion Gap 20 H BUN 34 H D Creatinine 1.2 H D Creat Clearance w eGFR 48.15 POC Glucometer [phone] Random Glucose 418 H* D Lactic Acid 2.0 Calcium 7.8 L Phosphorus Magnesium Total Bilirubin 0.7 D AST 13 L D ALT 16 D Alkaline Phosphatase 98 D Creatine Kinase Troponin I Total Protein 6.9 D Albumin 3.4 D Lipase Urine Color Urine Appearance Urine pH Ur Specific [place] Urine Protein Urine Glucose (UA) Urine Ketones Urine Blood Urine Nitrite Urine Bilirubin Urine Urobilinogen Ur Leukocyte Esterase Urine RBC Urine WBC Urine Bacteria Urine HCG, Qual Opiates Screen Methadone Screen Barbiturate Screen Phencyclidine Screen Ur Amphetamines Screen MDMA (Ecstasy) Screen Benzodiazepines Screen Cocaine Screen U Marijuana (THC) Screen Acetone, Qual CXR- seen with report, no focal infiltrates seen ASSESSMENT AND PLAN: #DKA with HAGMA, lactic acidosis, likely 2/2 to medication noncompliance as patient has not taken her medications for several days. Unlikely to have been triggered by infection as history and exam does not suggest it. -admit to ICU for DKA -continue insulin drip at 6units/kg/hr and adjust as per protocol -q1hr FS -Continue IVF -Add Dextrose to IVF when FS <250 -Aggressive repletion of K+- supplement K to NS IVF -check chemistry and replenish electrolytes as needed including Mg and Phos -monitor for anion gap closure, -Transition to SC insulin when AG closed and able to tolerate PO diet -Zofran IV for nausea and vomiting #Leukocytosis - likely reactive, no signs of infection #DVT ppx -SCDs and early ambulation #Diet -diabetic diet once able to tolerate - start with clear liquids first
[2016-12-21] MEDS ORDERED: INSULIN REGULAR HUMAN 100 UNITS/ML *VIAL IVPUSH ONE (20:25)
[2016-12-21] MEDS ORDERED: HYDROmorphone HCL CARPU-JECT 2 MG/1 ML DISP.SYRIN ONE (20:36)
--- NOTE | 2016-12-21 20:37 | CONSULT ---
Consult Consult Specialty:: PULMONARY/CRITICAL CARE MEDICINE Referred by:: Dr Camacho Reason for Consultation:: DKA - History of Present Illness Chief Complaint: nausea, vomiting, malaise History of Present Illness: Briefly, 46 woman with poorly controlled IDDM, chronic pain with opiate dependance, many admissions for DKA, was here 1 month ago in severe ARDS. She presents to the ED with nausea/vomiting/malaise, found to be in DKA, she hasn't had insulin in several days. She has a leukocytosis, but no obvious source (CXR clear, UA negative) was given NS bolus, Zosyn and started on Insulin drip at 2units/hr and transferred to the ICU. - History Source History Provided By: Patient, Medical Record Limitations to Obtaining History: No Limitations - Past Medical History BROOM HANDLE DIPPER: Yes: Migraine ...LMP: 04/14/13 Endocrine: Yes: Diabetes Mellitus Additional Medical History: dka in the past - Past Surgical History Past Surgical History: Yes: Cholecystectomy - Alcohol/Substance Use Hx Alcohol Use: No - Smoking History Smoking history: Unknown if ever smoked Have you smoked in the past 12 months: Yes Aproximately how many cigarettes per day: 20 Home Medications - Allergies Allergies/Adverse Reactions: Allergies Allergy/AdvReac Type Severity Reaction Status Date / Time No Known Allergies Allergy Verified 12/21/16 13:00 - Home Medications Home Medications: Ambulatory Orders Morphine Sulfate [Ms Contin] 120 mg PO BID 06/20/15 Oxycodone HCl/Acetaminophen [Percocet 10-325 mg Tablet] 1 - 2 tab PO Q6H Insulin (Levemir) [Levemir Vial] 20 unit SQ HS #30 ml 12/07/15 Insulin Sliding Scale [Novolog Vial Sliding Scale -] See Protocol SQ AC 30 Days 12/07/15 Family Disease History - Family Disease History Family History: Unremarkable Review of Systems - Review of Systems Constitutional: reports: Malaise Eyes: reports: No Symptoms HENT: reports: No Symptoms Neck: reports: No Symptoms Cardiovascular: reports: No Symptoms Respiratory: reports: No Symptoms Gastrointestinal: reports: Abdominal Pain, Nausea, Vomiting Genitourinary: reports: No Symptoms Musculoskeletal: reports: Back Pain, Extremity Pain, Joint Pain Integumentary: reports: Incision Neurological: reports: No Symptoms Endocrine: reports: No Symptoms Psychiatric: reports: No Symptoms Physical Exam Vital Signs: Vital Signs Temperature 99.4 F 12/21/16 20:00 Pulse Rate 106 H 12/21/16 20:00 Respiratory Rate 24 12/21/16 20:00 Blood Pressure 147/79 12/21/16 20:00 O2 Sat by Pulse Oximetry (%) 98 12/21/16 17:17 Constitutional: Yes: Well Nourished Eyes: Yes: WNL HENT: Yes: WNL Neck: Yes: WNL Cardiovascular: Yes: WNL Respiratory: Yes: WNL Gastrointestinal: Yes: WNL Extremities: Yes: WNL Edema: No Peripheral Pulses WNL: Yes Integumentary: Yes: WNL Neurological: Yes: WNL Labs: CBC, BMP 12/21/16 13:31 Imaging - Results Chest X-ray: Report Reviewed, Image Reviewed Problem List - Problems (1) DKA (diabetic ketoacidoses) Code(s): E13.10 - OTH DIABETES MELLITUS WITH KETOACIDOSIS WITHOUT COMA Qualifiers: (2) High anion gap metabolic acidosis Code(s): E87.2 - ACIDOSIS (3) Diabetes mellitus, insulin dependent (IDDM), uncontrolled Code(s): E10.65 - TYPE 1 DIABETES MELLITUS WITH HYPERGLYCEMIA (4) Leukocytosis Code(s): D72.829 - ELEVATED WHITE BLOOD CELL COUNT, UNSPECIFIED (5) Chronic pain Code(s): G89.29 - OTHER CHRONIC PAIN Assessment/Plan -INSULIN BOLUS NOW AND INCREASE DRIP TO 6units/hr (~0.1units/kg/hr) -q1hr FS -Continue IVF -Add Dextrose to IVF when FS <250 -Aggressive repletion of K+ -IV Opiates - has opiate dependance and high opiate tolerance - she is on ER MS Contin and IR Oxycodone at home and has been unable to tolerate POs -Check cultures, consider d/c abx -Transition to SC insulin when AG closed and able to tolerate PO diet Critically Ill - CCT 45min Thank you for this interesting consult Ganesh Zavala/Critical Care PHYSICAL MEDICINE SPECIALIST
[2016-12-21 20:58] LABS: ALBUMIN 3.4 g/dl (3.4-5.0); ALK PHOS 98 U/L (45-117); ANION GAP 20 (8-16); CALCIUM 7.8 mg/dL (8.5-10.1); CO2 14 mmol/L (21-32); CREATININE 1.2 mg/dL (0.55-1.02); SGOT/AST 13 U/L (15-37); SGPT/ALT 16 U/L (12-78)
[2016-12-21 20:59] LABS: BILIRUBIN,TOTAL 0.7 mg/dL (0.2-1.0); TOT PROT 6.9 g/dl (6.4-8.2)
[2016-12-21 21:06] LABS: GLUCOSE,RANDOM 418 mg/dL (74-106)
[2016-12-21] MEDS: HYDROmorphone HCL CARPU-JECT 1 MG/1 ML DISP.SYRIN IVPUSH PRN (21:29)
[2016-12-21] MEDS: ONDANSETRON 4 MG/2 ML VIAL IVPUSH PRN (21:29)
[2016-12-21] MEDS ORDERED: SODIUM CHLORIDE 1,000 ML with POTASSIUM CHLORIDE 40 MEQ IV SCH (21:41)
--- NOTE | 2016-12-21 22:25 | HP ---
CHIEF COMPLAINT: Nausea, vomiting, "DKA" PCP:Pa Heard MD HISTORY OF PRESENT ILLNESS: 46 y/o F w/sig PMH of IDDM, non-compliance with insulin therapy, multiple previous admssions for DKA presents to [facility] ER for N/V and generalized weakness over the last 2 days. Pt states she has not been taking her insulin over the last 2-3 days because her "dog ate her glucometer" and she could not find her spare one. She also c/o cough with dark green sputum over the last 2 days and and diarrhea for the last week. Diarrhea occurs 1-2 times per day. There is no blood in the stool. Pt denies any sick contacts, fevers, chills, GOMEZ , visual changes, dysuria, blood in urine, abd pain, CP, SOB, peripheral swelling. Pt states she saw her PCP 1 week ago and she states he did not note anything out of the ordinary at that visit. ER course was notable for: (1) NS, Insulin drip, CXR, potassium repletion, zosyn (2) (3) PAST MEDICAL HISTORY: IDDM, gastroparesis, chronic back pain (on opiates) PAST SURGICAL HISTORY: denies Social History: Smokinppd x15 years Alcohol: denies Drugs: opiates (states they are prescribed by her PCP) Family History: Allergies No Known Allergies Allergy (Verified 12/21/16 13:00) HOME MEDICATIONS: Home Medications Medication Instructions Recorded Morphine Sulfate [Ms Contin] 120 mg PO BID 06/20/15 Oxycodone HCl/Acetaminophen 1 - 2 tab PO Q6H 06/20/15 [Percocet 10-325 mg Tablet] Insulin (Levemir) [Levemir Vial] 20 unit SQ HS #30 ml 12/07/15 Insulin Sliding Scale [Novolog See Protocol SQ AC 30 Days 12/07/15 Vial Sliding Scale -] REVIEW OF SYSTEMS CONSTITUTIONAL: +generalized weakness, loss of appetite Absent: fever, chills, diaphoresis, weight change HEENT: Absent: throat pain, throat swelling, visual changes CARDIOVASCULAR: Absent: chest pain, syncope, palpitations, irregular heart rate, peripheral edema RESPIRATORY: +cough w/sputum Absent: shortness of breath, dyspnea with exertion GASTROINTESTINAL: +nausea, vomiting, diarrhea Absent: abdominal pain, abdominal distension, constipation, hematochezia GENITOURINARY: +frequency Absent: dysuria, urgency, hesitancy, hematuria MUSCULOSKELETAL: +back pain (chronic) NEUROLOGIC: Absent: headache, focal weakness or paresthesias, dizziness PHYSICAL EXAMINATION Vital Signs - 24 hr 12/21/16 12/21/16 20:00 21:00 Temperature 99.4 F 99.5 F Pulse Rate 106 H 101 H Respiratory 24 21 Rate Blood Pressure 147/79 130/70 GENERAL: Awake, alert, and fully oriented HEAD: Normal with no signs of trauma. EYES: Pupils equal, round and reactive to light, extraocular movements intact, sclera anicteric, conjunctiva clear. No lid lag. EARS, NOSE, THROAT: +Dry mucous membranes. Ears normal, nares patent, oropharynx clear without exudates. NECK: Normal range of motion, supple LUNGS: +tachypneic, Breath sounds equal, clear to auscultation bilaterally. No wheezes, and no crackles. No accessory muscle use. HEART: +tachycardic , normal S1 and S2, +2/6 systolic murmur best heard in aortic region, no rub or gallop. ABDOMEN: Soft, nontender, not distended, normoactive bowel sounds, no guarding, no rebound, no masses. No hepatomegaly or splenomegaly. MUSCULOSKELETAL: +paraspinal back pain in lower back. Normal range of motion at all joints. No bony deformities or tenderness. No CVA tenderness. LOWER EXTREMITIES: 2+ pulses, warm, well-perfused. No calf tenderness. No peripheral edema. NEUROLOGICAL: Normal speech. Gait not observed. PSYCHIATRIC: Cooperative. Good eye contact. Appropriate mood and affect. SKIN: Warm, dry, no rashes or lesions noted CBCD WBC 25.1 K/mm3 (4.0-10.8) H D 12/21/16 13:31 RBC 4.51 M/mm3 (3.60-5.2) 12/21/16 13:31 Hgb 14.0 GM/dl (10.7-15.3) D 12/21/16 13:31 Hct 39.8 % (32.4-45.2) 12/21/16 13:31 MCV 88.1 fl (80-96) 12/21/16 13:31 MCHC 35.2 g/dl (32.0-36.0) 12/21/16 13:31 RDW 14.8 % (11.6-15.6) D 12/21/16 13:31 Plt Count 528 K/MM3 (134-434) H D 12/21/16 13:31 MPV 8.4 fl (7.5-11.1) 12/21/16 13:31 CMP Sodium 130 mmol/L (136-145) L 12/21/16 20:18 Potassium 4.2 mmol/L (3.5-5.1) 12/21/16 20:18 Chloride 96 mmol/L (98-107) L 12/21/16 20:18 Carbon Dioxide 14 mmol/L (21-32) L D 12/21/16 20:18 Anion Gap 20 (8-16) H 12/21/16 20:18 BUN 34 mg/dL (7-18) H D 12/21/16 20:18 Creatinine 1.2 mg/dL (0.55-1.02) H D 12/21/16 20:18 Creat Clearance w eGFR 48.15 (>60) 12/21/16 20:18 Random Glucose 418 mg/dL (74-106) H* D 12/21/16 20:18 Calcium 7.8 mg/dL (8.5-10.1) L 12/21/16 20:18 Total Bilirubin 0.7 mg/dL (0.2-1.0) D 12/21/16 20:18 AST 13 U/L (15-37) L D 12/21/16 20:18 ALT 16 U/L (12-78) D 12/21/16 20:18 Alkaline Phosphatase 98 U/L (45-117) D 12/21/16 20:18 Total Protein 6.9 g/dl (6.4-8.2) D 12/21/16 20:18 Albumin 3.4 g/dl (3.4-5.0) D 12/21/16 20:18 CARDIAC ENZYMES Creatine Kinase 46 IU/L (26-140) 12/21/16 13:31 Troponin I 0.04 ng/ml (0.03-0.50) 12/21/16 13:31 Laboratory Tests 12/21/16 12/21/16 12/21/16 13:31 17:42 20:18 Lactic Acid 2.1 H* 3.0 H* 2.0 Laboratory Tests 12/21/16 13:31 Lipase 34 Urine Test Results Urine Color Yellow 12/21/16 14:30 Urine Appearance Clear 12/21/16 14:30 Urine pH 5.0 (4.5-8) 12/21/16 14:30 Ur Specific [place] 1.020 (1.005-1.025) 12/21/16 14:30 Urine Protein 1+ (NEGATIVE) H 12/21/16 14:30 Urine Glucose (UA) 2+ (NEGATIVE) H 12/21/16 14:30 Urine Ketones 4+ (NEGATIVE) H 12/21/16 14:30 Urine Blood Trace-intact (NEGATIVE) 12/21/16 14:30 Urine Nitrite Negative (NEGATIVE) 12/21/16 14:30 Urine Bilirubin 1+ (NEGATIVE) H 12/21/16 14:30 Ur Leukocyte Esterase Negative (NEGATIVE) 12/21/16 14:30 Urine RBC 2-3 /hpf (0-3) 12/21/16 14:30 Urine WBC 0-2 (3-5) 12/21/16 14:30 Urine Bacteria Few /hpf (NEGATIVE) 12/21/16 14:30 Imaging: CXR: No acute pathology at this time Active Medications Hydromorphone HCl (Dilaudid Injection -) 2 mg IVPUSH Q4H PRN PRN Reason: PAIN LEVEL 6-10 Last Admin: 12/21/16 21:29 Dose: 2 mg Insulin Human Regular 100 (units/ Sodium Chloride) 100 mls @ 6 mls/hr IVPB TITR [facility]; 6 UNITS/HR PRN Reason: Protocol Last Admin: 12/21/16 21:27 Dose: 6 mls/hr Potassium Chloride 40 meq/ (Sodium Chloride) 1,020 mls @ 500 mls/hr IVPB ASDIR [facility] Ondansetron HCl (Zofran Injection) 4 mg IVPUSH Q6H PRN PRN Reason: NAUSEA AND/OR VOMITING Last Admin: 12/21/16 21:29 Dose: 4 mg ASSESSMENT/PLAN: 46 y/o F w/sig PMH of IDDM, non-compliance with insulin therapy, multiple previous admssions for DKA presents to [facility] ER for N/V and generalized weakness over the last 2 days. Pt found to have random glucose of 506, lactic acid peaked at 3.0, anion gap of 29, leukocytosis w/left shift at 25 and admitted to ICU for DKA. -DKA secondary to insulin therapy non-compliance -Insulin drip at 6 units/hr (weight based: 0.1unit/kg/hr) -NS + 40 meq K+ over 2 hours -continue to hydrate with potassium according to labs -Gap trending down 29 to 23 to 20 -Random glucose trending down from 506 to 454 to 418 -c/w BGMs q1h -Advance diet as tolerated -Zofran 4mg IV q6h PRN for nausea -Monitor CMP for anion gap and electrolytes q2h -Leukocytosis -likely reactive to DKA -f/u BCx, UCx -given one dose of zosyn so far, will not continue abx at this time as DKA likely due to non-compliance rather than infectious etiology. -Systolic murmur -pt states she has never been told she had a murmur -2/6 systolic murmur best heard in aortic region; denies IVDA -has echo from 11/12/16 -Chronic back pain -Dilaudid 2mg IV Q4h PRN for pain level 6-10 -DVT ppx -SCDs -FEN -NS + 40 meq at 500ml/hr, continue with NS + 40 meq @ 100ml/hr afterwards -Pseudohyponatremia: corrected is 135, on NS -keep K+ 4-5 -hypochloremia, improving, on NS -f/u phos and Mg -Advance diet as tolerated -Dispo: -Admit to ICU for DKA Visit type - Emergency Visit Emergency Visit: Yes ED Registration Date: 12/21/16 Care time: The patient presented to the Emergency Department on the above date and was hospitalized for further evaluation of their emergent condition. - New Patient This patient is new to me today: Yes Date on this admission: 12/23/16 - Critical Care Critical Care patient: Yes Total Critical Care Time (in minutes): 40 Critical Care Statement: The care of this patient involved high complexity decision making to prevent further life threatening deterioration of the patient 's condition and/or to evalute & treat vital organ system(s) failure or risk of failure.
[2016-12-21 22:41] LABS: ALBUMIN 3.3 g/dl (3.4-5.0); ANION GAP 15 (8-16); BILIRUBIN,TOTAL 0.6 mg/dL (0.2-1.0); CO2 18 mmol/L (21-32); CREATININE 1.2 mg/dL (0.55-1.02); GLUCOSE,RANDOM 223 mg/dL (74-106); MAGNESIUM 1.9 mg/dL (1.8-2.4); PHOSPHOROUS 1.8 mg/dL (2.5-4.9); SGOT/AST 13 U/L (15-37); SGPT/ALT 14 U/L (12-78); TOT PROT 6.8 g/dl (6.4-8.2)
[2016-12-21 22:42] LABS: ALK PHOS 95 U/L (45-117)
[2016-12-21] MEDS ORDERED: D5-NS + 20 MEQ KCL - 1,000 ML IV SCH (23:15)
[2016-12-21] MEDS ORDERED: D5-NS + 40 MEQ KCL - 1,000 ML IV SCH (23:15)
[2016-12-21] MEDS: INSULIN REGULAR 100 UNITS in SODIUM CHLORIDE 99 ML IVPB SCH (23:48)
[2016-12-22] MEDS ORDERED: DEXTROSE 50%-WATER 50 ML VIAL IVPUSH PRN ×2 (01:15→01:18)
[2016-12-22] MEDS: HYDROmorphone HCL CARPU-JECT 1 MG/1 ML DISP.SYRIN IVPUSH PRN ×5 (01:41→20:19)
[2016-12-22 02:35] LABS: ANION GAP 14 (8-16); CALCIUM 7.2 mg/dL (8.5-10.1); CO2 18 mmol/L (21-32); CREATININE 0.9 mg/dL (0.55-1.02); GLUCOSE,RANDOM 178 mg/dL (74-106)
[2016-12-22] MEDS ORDERED: D5-NS + 20 MEQ KCL - 1,000 ML IV SCH (05:47)
[2016-12-22 07:01] LABS: BASOPHIL 0.4 % (0-2.0); MCH 29.2 pg (25.7-33.7); MCHC 32.7 g/dl (32.0-36.0); MEAN CELL VOLUME 89.5 fl (80-96); MEAN PLT VOLUME 7.7 fl (7.5-11.1); NEUTROPHILS 81.3 % (42.8-82.8); PLATELET COUNT 380 K/MM3 (134-434); RDW 15.7 % (11.6-15.6); WHITE BLOOD COUNT 26.3 K/mm3 (4.0-10.0)
[2016-12-22 07:33] LABS: AMYLASE 48 U/L (25-115); ANION GAP 13 (8-16); CALCIUM 7.6 mg/dL (8.5-10.1); CO2 22 mmol/L (21-32); CREATININE 0.9 mg/dL (0.55-1.02); GLUCOSE,RANDOM 140 mg/dL (74-106); MAGNESIUM 2.1 mg/dL (1.8-2.4); PHOSPHOROUS 2.1 mg/dL (2.5-4.9)
[2016-12-22] MEDS: INSULIN REGULAR 100 UNITS in SODIUM CHLORIDE 99 ML IVPB SCH ×4 (08:11→13:48)
--- NOTE | 2016-12-22 10:26 | PN ---
Progress Note (short form) - Note Progress Note: Patient seen and examined in the ICU. Remains on IV Insulin drip. AG improving. (+) LBP (chronic) Intake & Output 12/19/16 12/20/16 12/21/16 12/22/16 23:59 23:59 23:59 23:59 Intake Total 5490 1673 Output Total 500 250 Balance 4990 1423 Weight 135 lb 135 lb Last Vital Signs Temp Pulse Resp BP Pulse Ox 98.7 F 78 16 114/74 98 12/22/16 05:20 12/22/16 09:19 12/22/16 09:19 12/22/16 09:19 12/21/16 22:44 Active Medications Hydromorphone HCl (Dilaudid Injection -) 2 mg IVPUSH Q4H PRN PRN Reason: PAIN LEVEL 6-10 Last Admin: 12/22/16 07:38 Dose: 2 mg Insulin Human Regular 100 (units/ Sodium Chloride) 100 mls @ 6 mls/hr IVPB TITR [facility]; 6 UNITS/HR PRN Reason: Protocol Last Admin: 12/22/16 09:16 Dose: 3 mls/hr Dextrose/Sodium Chloride (Dextrose 5%-Normal Saline+20 Meq Kcl -) 1,000 mls @ 125 mls/hr IV ASDIR [facility] Last Admin: 12/22/16 06:12 Dose: 125 mls/hr Ondansetron HCl (Zofran Injection) 4 mg IVPUSH Q6H PRN PRN Reason: NAUSEA AND/OR VOMITING Last Admin: 12/21/16 21:29 Dose: 4 mg Constitutional: Yes: Awake and alert Eyes: Yes: WNL HENT: Yes: WNL Neck: Yes: WNL Cardiovascular: Yes: WNL Respiratory: Yes: WNL Gastrointestinal: Yes: WNL Extremities: Yes: WNL Edema: No Peripheral Pulses WNL: Yes Integumentary: Yes: WNL Neurological: Yes: WNL Labs: Laboratory Results - last 24 hr 12/21/16 12/21/16 12/21/16 13:31 13:31 13:31 WBC RBC Hgb Hct MCV MCHC RDW Plt Count MPV Neutrophils % Lymphocytes % Monocytes % Eosinophils % Basophils % Band Neutrophils Platelet Estimate Platelet Comment Morphology Comment VBG pH POC VBG pCO2 POC VBG pO2 Mixed VBG HCO3 Sodium Potassium Chloride Carbon Dioxide Anion Gap BUN Creatinine Creat Clearance w eGFR POC Glucometer Random Glucose Lactic Acid 2.1 H* Calcium Phosphorus 3.9 D Magnesium 2.0 Total Bilirubin AST ALT Alkaline Phosphatase Creatine Kinase 46 Troponin I 0.04 Total Protein Albumin Total Amylase Lipase Urine Color Urine Appearance Urine pH Ur Specific [place] Urine Protein Urine Glucose (UA) Urine Ketones Urine Blood Urine Nitrite Urine Bilirubin Urine Urobilinogen Ur Leukocyte Esterase Urine RBC Urine WBC Urine Bacteria Urine HCG, Qual Opiates Screen Methadone Screen Barbiturate Screen Phencyclidine Screen Ur Amphetamines Screen MDMA (Ecstasy) Screen Benzodiazepines Screen Cocaine Screen U Marijuana (THC) Screen Acetone, Qual 12/21/16 12/21/16 12/21/16 13:31 13:31 13:31 WBC 25.1 H D RBC 4.51 Hgb 14.0 D Hct 39.8 MCV 88.1 MCHC 35.2 RDW 14.8 D Plt Count 528 H D MPV 8.4 Neutrophils % 87.0 H D Lymphocytes % 7.0 L D Monocytes % 4.0 Eosinophils % Basophils % Band Neutrophils 2.0 D Platelet Estimate Increased Platelet Comment Few large plts Morphology Comment Slide scanned VBG pH POC VBG pCO2 POC VBG pO2 Mixed VBG HCO3 Sodium 127 L Potassium 3.8 D Chloride 81 L D Carbon Dioxide 17 L D Anion Gap 29 H BUN 38 H D Creatinine 1.3 D Creat Clearance w eGFR 43.90 POC Glucometer Random Glucose 506 H* D Lactic Acid Calcium 9.5 D Phosphorus Magnesium Total Bilirubin 2.5 H AST 16 D ALT 14 D Alkaline Phosphatase 105 H Creatine Kinase Troponin I Total Protein 8.1 D Albumin 4.5 D Total Amylase Lipase 34 Urine Color Urine Appearance Urine pH Ur Specific [place] Urine Protein Urine Glucose (UA) Urine Ketones Urine Blood Urine Nitrite Urine Bilirubin Urine Urobilinogen Ur Leukocyte Esterase Urine RBC Urine WBC Urine Bacteria Urine HCG, Qual Opiates Screen Methadone Screen Barbiturate Screen Phencyclidine Screen Ur Amphetamines Screen MDMA (Ecstasy) Screen Benzodiazepines Screen Cocaine Screen U Marijuana (THC) Screen Acetone, Qual Positive large 3+ H 12/21/16 12/21/16 12/21/16 13:31 14:30 14:30 WBC RBC Hgb Hct MCV MCHC RDW Plt Count MPV Neutrophils % Lymphocytes % Monocytes % Eosinophils % Basophils % Band Neutrophils Platelet Estimate Platelet Comment Morphology Comment VBG pH 7.39 POC VBG pCO2 29.4 L D POC VBG pO2 53.4 L D Mixed VBG HCO3 17.4 L Sodium Potassium Chloride Carbon Dioxide Anion Gap BUN Creatinine Creat Clearance w eGFR POC Glucometer Random Glucose Lactic Acid Calcium Phosphorus Magnesium Total Bilirubin AST ALT Alkaline Phosphatase Creatine Kinase Troponin I Total Protein Albumin Total Amylase Lipase Urine Color Yellow Urine Appearance Clear Urine pH 5.0 Ur Specific [place] 1.020 Urine Protein 1+ H Urine Glucose (UA) 2+ H Urine Ketones 4+ H Urine Blood Trace-intact Urine Nitrite Negative Urine Bilirubin 1+ H Urine Urobilinogen 0.2 e.u/dl Ur Leukocyte Esterase Negative Urine RBC 2-3 Urine WBC 0-2 Urine Bacteria Few Urine HCG, Qual Negative Opiates Screen Methadone Screen Barbiturate Screen Phencyclidine Screen Ur Amphetamines Screen MDMA (Ecstasy) Screen Benzodiazepines Screen Cocaine Screen U Marijuana (THC) Screen Acetone, Qual 12/21/16 12/21/16 12/21/16 14:30 17:42 17:42 WBC RBC Hgb Hct MCV MCHC RDW Plt Count MPV Neutrophils % Lymphocytes % Monocytes % Eosinophils % Basophils % Band Neutrophils Platelet Estimate Platelet Comment Morphology Comment VBG pH POC VBG pCO2 POC VBG pO2 Mixed VBG HCO3 Sodium 128 L Potassium 4.0 Chloride 92 L D Carbon Dioxide 13 L D Anion Gap 23 H BUN 34 H Creatinine 1.2 Creat Clearance w eGFR 48.15 POC Glucometer Random Glucose 454 H* Lactic Acid 3.0 H* Calcium 8.3 L Phosphorus Magnesium Total Bilirubin 1.9 H D AST 18 ALT 16 Alkaline Phosphatase 91 Creatine Kinase Troponin I Total Protein 7.0 Albumin 3.9 Total Amylase Lipase Urine Color Urine Appearance Urine pH Ur Specific [place] Urine Protein Urine Glucose (UA) Urine Ketones Urine Blood Urine Nitrite Urine Bilirubin Urine Urobilinogen Ur Leukocyte Esterase Urine RBC Urine WBC Urine Bacteria Urine HCG, Qual Opiates Screen Positive Methadone Screen Negative Barbiturate Screen Negative Phencyclidine Screen Negative Ur Amphetamines Screen Negative MDMA (Ecstasy) Screen Negative Benzodiazepines Screen Negative Cocaine Screen Negative U Marijuana (THC) Screen Positive Acetone, Qual 12/21/16 12/21/16 12/21/16 20:18 20:18 20:49 WBC RBC Hgb Hct MCV MCHC RDW Plt Count MPV Neutrophils % Lymphocytes % Monocytes % Eosinophils % Basophils % Band Neutrophils Platelet Estimate Platelet Comment Morphology Comment VBG pH POC VBG pCO2 POC VBG pO2 Mixed VBG HCO3 Sodium 130 L Potassium 4.2 Chloride 96 L Carbon Dioxide 14 L D Anion Gap 20 H BUN 34 H D Creatinine 1.2 H D Creat Clearance w eGFR 48.15 POC Glucometer 347.78342 Random Glucose 418 H* D Lactic Acid 2.0 Calcium 7.8 L Phosphorus Magnesium Total Bilirubin 0.7 D AST 13 L D ALT 16 D Alkaline Phosphatase 98 D Creatine Kinase Troponin I Total Protein 6.9 D Albumin 3.4 D Total Amylase Lipase Urine Color Urine Appearance Urine pH Ur Specific [place] Urine Protein Urine Glucose (UA) Urine Ketones Urine Blood Urine Nitrite Urine Bilirubin Urine Urobilinogen Ur Leukocyte Esterase Urine RBC Urine WBC Urine Bacteria Urine HCG, Qual Opiates Screen Methadone Screen Barbiturate Screen Phencyclidine Screen Ur Amphetamines Screen MDMA (Ecstasy) Screen Benzodiazepines Screen Cocaine Screen U Marijuana (THC) Screen Acetone, Qual 12/21/16 12/21/16 12/21/16 21:45 21:45 22:32 WBC RBC Hgb Hct MCV MCHC RDW Plt Count MPV Neutrophils % Lymphocytes % Monocytes % Eosinophils % Basophils % Band Neutrophils Platelet Estimate Platelet Comment Morphology Comment VBG pH POC VBG pCO2 POC VBG pO2 Mixed VBG HCO3 Sodium 133 L Potassium 4.1 Chloride 100 Carbon Dioxide 18 L D Anion Gap 15 BUN 34 H Creatinine 1.2 H Creat Clearance w eGFR 48.15 POC Glucometer 224.43649 Random Glucose 223 H D Lactic Acid 1.8 Calcium 8.0 L Phosphorus 1.8 L D Magnesium 1.9 Total Bilirubin 0.6 AST 13 L ALT 14 Alkaline Phosphatase 95 Creatine Kinase Troponin I Total Protein 6.8 Albumin 3.3 L Total Amylase Lipase Urine Color Urine Appearance Urine pH Ur Specific [place] Urine Protein Urine Glucose (UA) Urine Ketones Urine Blood Urine Nitrite Urine Bilirubin Urine Urobilinogen Ur Leukocyte Esterase Urine RBC Urine WBC Urine Bacteria Urine HCG, Qual Opiates Screen Methadone Screen Barbiturate Screen Phencyclidine Screen Ur Amphetamines Screen MDMA (Ecstasy) Screen Benzodiazepines Screen Cocaine Screen U Marijuana (THC) Screen Acetone, Qual 12/22/16 12/22/16 12/22/16 00:17 01:32 02:00 WBC RBC Hgb Hct MCV MCHC RDW Plt Count MPV Neutrophils % Lymphocytes % Monocytes % Eosinophils % Basophils % Band Neutrophils Platelet Estimate Platelet Comment Morphology Comment VBG pH POC VBG pCO2 POC VBG pO2 Mixed VBG HCO3 Sodium 137 Potassium 4.2 Chloride 105 Carbon Dioxide 18 L Anion Gap 14 BUN 29 H Creatinine 0.9 D Creat Clearance w eGFR POC Glucometer 134.72540 188.52830 Random Glucose 178 H D Lactic Acid Calcium 7.2 L Phosphorus Magnesium Total Bilirubin AST ALT Alkaline Phosphatase Creatine Kinase Troponin I Total Protein Albumin Total Amylase Lipase Urine Color Urine Appearance Urine pH Ur Specific [place] Urine Protein Urine Glucose (UA) Urine Ketones Urine Blood Urine Nitrite Urine Bilirubin Urine Urobilinogen Ur Leukocyte Esterase Urine RBC Urine WBC Urine Bacteria Urine HCG, Qual Opiates Screen Methadone Screen Barbiturate Screen Phencyclidine Screen Ur Amphetamines Screen MDMA (Ecstasy) Screen Benzodiazepines Screen Cocaine Screen U Marijuana (THC) Screen Acetone, Qual 12/22/16 12/22/16 12/22/16 03:09 04:17 05:00 WBC 26.3 H D RBC 3.88 D Hgb 11.3 D Hct 34.7 D MCV 89.5 MCHC 32.7 RDW 15.7 H Plt Count 380 D MPV 7.7 Neutrophils % 81.3 D Lymphocytes % 12.7 D Monocytes % 5.6 Eosinophils % 0.0 D Basophils % 0.4 Band Neutrophils Platelet Estimate Platelet Comment Morphology Comment VBG pH POC VBG pCO2 POC VBG pO2 Mixed VBG HCO3 Sodium Potassium Chloride Carbon Dioxide Anion Gap BUN Creatinine Creat Clearance w eGFR POC Glucometer 193.15356 204.27222 Random Glucose Lactic Acid Calcium Phosphorus Magnesium Total Bilirubin AST ALT Alkaline Phosphatase Creatine Kinase Troponin I Total Protein Albumin Total Amylase Lipase Urine Color Urine Appearance Urine pH Ur Specific [place] Urine Protein Urine Glucose (UA) Urine Ketones Urine Blood Urine Nitrite Urine Bilirubin Urine Urobilinogen Ur Leukocyte Esterase Urine RBC Urine WBC Urine Bacteria Urine HCG, Qual Opiates Screen Methadone Screen Barbiturate Screen Phencyclidine Screen Ur Amphetamines Screen MDMA (Ecstasy) Screen Benzodiazepines Screen Cocaine Screen U Marijuana (THC) Screen Acetone, Qual 12/22/16 12/22/16 12/22/16 05:00 05:12 06:24 WBC RBC Hgb Hct MCV MCHC RDW Plt Count MPV Neutrophils % Lymphocytes % Monocytes % Eosinophils % Basophils % Band Neutrophils Platelet Estimate Platelet Comment Morphology Comment VBG pH POC VBG pCO2 POC VBG pO2 Mixed VBG HCO3 Sodium 140 Potassium 3.7 Chloride 105 Carbon Dioxide 22 D Anion Gap 13 BUN 25 H Creatinine 0.9 Creat Clearance w eGFR POC Glucometer 222.96785 198.36207 Random Glucose 140 H D Lactic Acid Calcium 7.6 L Phosphorus 2.1 L Magnesium 2.1 Total Bilirubin AST ALT Alkaline Phosphatase Creatine Kinase Troponin I Total Protein Albumin Total Amylase 48 D Lipase 106 Urine Color Urine Appearance Urine pH Ur Specific [place] Urine Protein Urine Glucose (UA) Urine Ketones Urine Blood Urine Nitrite Urine Bilirubin Urine Urobilinogen Ur Leukocyte Esterase Urine RBC Urine WBC Urine Bacteria Urine HCG, Qual Opiates Screen Methadone Screen Barbiturate Screen Phencyclidine Screen Ur Amphetamines Screen MDMA (Ecstasy) Screen Benzodiazepines Screen Cocaine Screen U Marijuana (THC) Screen Acetone, Qual 12/22/16 12/22/16 07:35 09:15 WBC RBC Hgb Hct MCV MCHC RDW Plt Count MPV Neutrophils % Lymphocytes % Monocytes % Eosinophils % Basophils % Band Neutrophils Platelet Estimate Platelet Comment Morphology Comment VBG pH POC VBG pCO2 POC VBG pO2 Mixed VBG HCO3 Sodium Potassium Chloride Carbon Dioxide Anion Gap BUN Creatinine Creat Clearance w eGFR POC Glucometer 248.31433 211.82003 Random Glucose Lactic Acid Calcium Phosphorus Magnesium Total Bilirubin AST ALT Alkaline Phosphatase Creatine Kinase Troponin I Total Protein Albumin Total Amylase Lipase Urine Color Urine Appearance Urine pH Ur Specific [place] Urine Protein Urine Glucose (UA) Urine Ketones Urine Blood Urine Nitrite Urine Bilirubin Urine Urobilinogen Ur Leukocyte Esterase Urine RBC Urine WBC Urine Bacteria Urine HCG, Qual Opiates Screen Methadone Screen Barbiturate Screen Phencyclidine Screen Ur Amphetamines Screen MDMA (Ecstasy) Screen Benzodiazepines Screen Cocaine Screen U Marijuana (THC) Screen Acetone, Qual Problem List - Problems (1) DKA (diabetic ketoacidoses) Code(s): E13.10 - OTH DIABETES MELLITUS WITH KETOACIDOSIS WITHOUT COMA Qualifiers: (2) High anion gap metabolic acidosis Code(s): E87.2 - ACIDOSIS (3) Diabetes mellitus, insulin dependent (IDDM), uncontrolled Code(s): E10.65 - TYPE 1 DIABETES MELLITUS WITH HYPERGLYCEMIA (4) Leukocytosis Code(s): D72.829 - ELEVATED WHITE BLOOD CELL COUNT, UNSPECIFIED (5) Chronic pain Code(s): G89.29 - OTHER CHRONIC PAIN Assessment/Plan -Insulin drip until AG is closed -q1hr BGM -IVF -Continue to monitor K+ -Follow pending cultures -Monitor off ABX for now as there is no clear source of infection and elevated WBC may be reactive Dr Otero Critical care time spent in reviewing chart, evaluation patient and formulating plan 35 min
[2016-12-22] MEDS ORDERED: SODIUM PHOSPHATE - 30 MM in SODIUM CHLORIDE 250 ML IVPB ONE (11:45)
[2016-12-22] MEDS ORDERED: PT OWN MED DRAWER 7, Y5N ONE (13:42)
--- NOTE | 2016-12-22 14:33 | EKG ---
Test Reason : Blood Pressure : / mmHG Vent. Rate : 101 BPM Atrial Rate : 101 BPM P-R Int : 118 ms QRS Dur : 102 ms QT Int : 370 ms P-R-T Axes : 078 088 060 degrees QTc Int : 479 ms SINUS TACHYCARDIA POSSIBLE LEFT ATRIAL ENLARGEMENT NONSPECIFIC ST ABNORMALITY NON-SPECIFIC INTRA-VENTRICULAR CONDUCTION BLOCK WHEN COMPARED WITH ECG OF 10-NOV-2016 09:27, ST NOW DEPRESSED IN LATERAL LEADS Confirmed by MD FILI, YANELI ([id number]) on 12/22/2016 2:33:30 PM Referred By: EDITH TORRE Confirmed By:YANELI PENN MD
--- NOTE | 2016-12-22 14:58 | PN ---
Physical Exam: SUBJECTIVE: Patient seen and examined OBJECTIVE: feels tired, no pain , no nausea Vital Signs Period Temp Pulse Resp BP Sys/Rapp Pulse Ox Last 24 Hr 98.0 F-99.5 F 72-107 12-24 95-147/55-83 98 GENERAL: The patient is awake, alert, and fully oriented, in no acute distress. HEAD: Normal with no signs of trauma. EYES: PERRL, extraocular movements intact, ENT: Ears normal, nares patent, oropharynx clear without exudates, dry mucous membranes. NECK: Trachea midline, full range of motion, supple. LUNGS: Breath sounds equal, clear to auscultation bilaterally, no wheezes, no crackles, no accessory muscle use. HEART: Regular rate and rhythm, S1, S2 without murmur, rub or gallop. ABDOMEN: Soft, nontender, nondistended, normoactive bowel sounds, no guarding, no rebound, no hepatosplenomegaly, no masses. EXTREMITIES: 2+ pulses, warm, well-perfused, no edema. NEUROLOGICAL: Cranial nerves II through XII grossly intact. Normal speech, gait not observed. Laboratory Results - last 24 hr CBC, BMP 12/22/16 05:00 12/22/16 05:00 1. DKA - resolved -change to DC insulin SS - accu checks Q4 - IVF -Diabetic diet - october d/c ICU 2. Leukocytosis- likely reactive, no fever, no sourse - observe off antibiotics 3. Prerenal azotemia - IVF -monitor creatinine
[2016-12-22] MEDS: INSULIN SLIDING SCALE (NOVOLOG) 1 VIAL SQ SCH ×3 (15:50→22:13)
[2016-12-22] MEDS: ONDANSETRON 4 MG/2 ML VIAL IVPUSH PRN (15:56)
[2016-12-22] MEDS ORDERED: ONDANSETRON 4 MG/2 ML VIAL IVPB ONE (18:15)
[2016-12-22] MEDS ORDERED: HYDROmorphone HCL CARPU-JECT 2 MG/1 ML DISP.SYRIN IVPUSH PRN (21:16)
[2016-12-22] MEDS ORDERED: ONDANSETRON 4 MG/2 ML VIAL IVPUSH PRN (21:16)
[2016-12-22] MEDS ORDERED: INSULIN DETEMIR 100 UNITS/ML MDV SQ SCH ×2 (22:00)
[2016-12-22] MEDS: D5-NS + 20 MEQ KCL - 1,000 ML IV SCH (22:13)
[2016-12-23] MEDS: INSULIN SLIDING SCALE (NOVOLOG) 1 VIAL SQ SCH ×4 (02:13→14:28)
[2016-12-23] MEDS: D5-NS + 20 MEQ KCL - 1,000 ML IV SCH (05:54)
[2016-12-23] MEDS: HYDROmorphone HCL CARPU-JECT 2 MG/1 ML DISP.SYRIN IVPB PRN ×2 (06:52→12:45)
[2016-12-23 08:10] LABS: BASOPHIL 0.4 % (0-2.0); EOSINOPHIL 0.4 % (0-4.5); MCH 29.7 pg (25.7-33.7); MEAN CELL VOLUME 89.9 fl (80-96); MEAN PLT VOLUME 7.5 fl (7.5-11.1); NEUTROPHILS 60.7 % (42.8-82.8); PLATELET COUNT 302 K/MM3 (134-434); RDW 14.9 % (11.6-15.6); WHITE BLOOD COUNT 13.6 K/mm3 (4.0-10.0)
[2016-12-23 08:41] LABS: ALBUMIN 2.8 g/dl (3.4-5.0); ALK PHOS 83 U/L (45-117); ANION GAP 8 (8-16); BILIRUBIN,TOTAL 0.3 mg/dL (0.2-1.0); CO2 26 mmol/L (21-32); CREATININE 0.5 mg/dL (0.55-1.02); GLUCOSE,RANDOM 81 mg/dL (74-106); SGOT/AST 26 U/L (15-37); SGPT/ALT 16 U/L (12-78); TOT PROT 5.7 g/dl (6.4-8.2)
[2016-12-23] MEDS ORDERED: SUCRALFATE 1 GM TABLET (FP) PO SCH (10:15)
[2016-12-23] MEDS ORDERED: PANTOPRAZOLE 40 MG TABLET (FP) PO SCH (10:15)
[2016-12-23] MEDS ORDERED: INSULIN (NOVOLOG) ASPART 100 UNITS/ML 10ML VIAL ONE (10:43)
[2016-12-23] MEDS ORDERED: PT OWN MED DRAWER 7, Y5N ONE (10:43)
[2016-12-23] MEDS ORDERED: METOCLOPRAMIDE HCL 10 MG TABLET (FP) PO SCH (11:00)
--- NOTE | 2016-12-23 12:33 | PN ---
Teaching Attending Note Name of Resident: Jaspal Mckeon ATTENDING PHYSICIAN STATEMENT I saw and evaluated the patient. I reviewed the resident's note and discussed the case with the resident. I agree with the resident's findings and plan as documented. SUBJECTIVE: reports epigastric pain OBJECTIVE: Vital Signs Temperature 98.7 F 12/23/16 06:00 Pulse Rate 71 12/23/16 06:00 Respiratory Rate 18 12/23/16 06:00 Blood Pressure 114/81 12/23/16 06:00 O2 Sat by Pulse Oximetry (%) 96 12/22/16 21:00 General- nontoxic appearing, AAox3 HEENT - no trauma, NC dry oral mucosa CV-s1+s+ systolic murmur CHest- CTA b/l ABdomen -soft, mild tenderness epigastric area Ext - no edema CBC, BMP 12/23/16 06:55 12/23/16 06:55 ASSESSMENT AND PLAN: 1. DKA - resolved , off insulin drip for over 24HR and improving . This was secondary to non compliance . Now BG improved . 2. Epigastric pain and vomiting - likely secondary to gastritis , patient is s/ p cholecystectomy 3. Leukocytosis - reactive , no active infection PLAN : 1. D/C home with insulin Levemir 15 QHS and sliding scale. Instructed to monitor BG and report to PMD . Diabetic diet 2. Protonix PO and carafate for abdominal pain . If no improvement in 2 weeks - will need f/u with gastroenterology for endoscopy
[2016-12-23 15:42] VITALS: BP 144/87; PULSE 75; TEMP 98.4
--- NOTE | 2016-12-23 22:25 | DS ---
Physical Exam: SUBJECTIVE: c/o NBNB vomiting. Denies fever, chills, chest pain, sob, weakness, urinary syptoms. OBJECTIVE: Vital Signs Period Temp Pulse Resp BP Sys/Rapp Pulse Ox Last 24 Hr 98.4 F-98.7 F 71-76 18-18 114-145/80-87 97 PHYSICAL EXAM GENERAL: Awake, alert, and fully oriented HEAD: Normal with no signs of trauma. EYES: Pupils equal, round and reactive to light, extraocular movements intact, sclera anicteric, conjunctiva clear. No lid lag. EARS, NOSE, THROAT: oropharynx clear without exudates. NECK: Normal range of motion, supple LUNGS:CTAB HEART:RRR , normal S1 and S2, ABDOMEN: Soft, diffuse tenderness, not distended, normoactive bowel sounds, no guarding, no rebound, no masses. MUSCULOSKELETAL: +paraspinal back pain in lower back. Normal range of motion at all joints. No bony deformities or tenderness. No CVA tenderness. LOWER EXTREMITIES: 2+ pulses, warm, well-perfused. No calf tenderness. No peripheral edema. NEUROLOGICAL: Normal speech. Gait not observed. PSYCHIATRIC: Cooperative. Good eye contact. Appropriate mood and affect. SKIN: Warm, dry, no rashes or lesions noted LABS Laboratory Results - last 24 hr 12/21/16 12/22/16 12/23/16 19:40 22:12 02:08 WBC RBC Hgb Hct MCV MCHC RDW Plt Count MPV Neutrophils % Lymphocytes % Monocytes % Eosinophils % Basophils % Sodium Potassium Chloride Carbon Dioxide Anion Gap BUN Creatinine Creat Clearance w eGFR POC Glucometer > [phone] 115 Random Glucose Calcium Phosphorus Magnesium Total Bilirubin AST ALT Alkaline Phosphatase Total Protein Albumin 12/23/16 12/23/16 12/23/16 06:46 06:55 06:55 WBC 13.6 H D RBC 3.47 L Hgb 10.3 L Hct 31.2 L MCV 89.9 MCHC 33.0 RDW 14.9 Plt Count 302 D MPV 7.5 Neutrophils % 60.7 D Lymphocytes % 32.1 D Monocytes % 6.4 Eosinophils % 0.4 D Basophils % 0.4 Sodium 140 Potassium 3.8 Chloride 106 Carbon Dioxide 26 Anion Gap 8 BUN 8 D Creatinine 0.5 L D Creat Clearance w eGFR > 60 POC Glucometer 50 Random Glucose 81 D Calcium 8.0 L Phosphorus 2.0 L Magnesium 2.0 Total Bilirubin 0.3 D AST 26 D ALT 16 Alkaline Phosphatase 83 Total Protein 5.7 L Albumin 2.8 L 12/23/16 12/23/16 12/23/16 08:01 10:47 14:27 WBC RBC Hgb Hct MCV MCHC RDW Plt Count MPV Neutrophils % Lymphocytes % Monocytes % Eosinophils % Basophils % Sodium Potassium Chloride Carbon Dioxide Anion Gap BUN Creatinine Creat Clearance w eGFR POC Glucometer 123 152 186 Random Glucose Calcium Phosphorus Magnesium Total Bilirubin AST ALT Alkaline Phosphatase Total Protein Albumin HOSPITAL COURSE: Date of Admission:12/21/16 Patient is a 46 year old female with a significant past medical history of IDDM with non compliance, DKA, gastroparesis and polysubstance abuse. She presented to the ED in [place] on complaints of nausea and vomiting and was found to be in severe DKA with a glucose greater than 500, severe metabolic acidosis with positive ketones, elevated WBC. She was admitted to the ICU, treated with fluids, insulin gtt, supplement potassium and gap was closed the next day. She was transferred to a medical surgical floor and has remained stable on the medical surgical floor. She's now in stable condition to be d/c home on reglan, carafate, mylanta, zofran to control her symptoms from gastritis and gastroparesis. She's instructed to follow up with her PMD within a week. Date of Discharge: 12/23/16 Minutes to complete discharge: 35 Discharge Summary Reason For Visit: HIGH ANION GAP METABOLIC ACIDOSIS/VOMITTING Current Active Problems Vomiting (Acute) Abdominal pain (Chronic) Chronic pain (Chronic) Condition: Stable - Instructions Diet, Activity, Other Instructions: Instruction for continuing care: You were admitted to the hospital for high blood sugar and you were treated accordingly. You have to be compliant with your insulin regiment and try to eat healthy. 1. You will need to take carafate 2 gm twice a day, mylanta 30 ml 3 times a day and protonix 40mg once a day for 2 weeks for gastritis. If you still have gastric pain after 2 weeks, you will need to see a stomach doctor and you may get a referral from your primary doctor. 2. You will also need to take reglan 10mg 3 times a day to help move your bowel because diabetes can slow your gut down. 3. Take zofran as needed for nausea and vomiting. 4. Because you are taking narcotics for pain chronically, you can take over the counter laxatives for your chronic constipation. 5. Reduce your lantus to 10 units at night if you feel your blood sugar is too low 6. Follow up with your primary doctor and diabetes doctor within a week. Referrals: Tyshawn Gama MD [Staff Physician] - Pa Heard MD [Staff Physician] - Disposition: HOME - Home Medications Comprehensive Discharge Medication List: Ambulatory Orders Morphine Sulfate [Ms Contin] 120 mg PO BID 06/20/15 Oxycodone HCl/Acetaminophen [Percocet 10-325 mg Tablet] 1 - 2 tab PO Q6H Insulin (Levemir) [Levemir Vial] 20 unit SQ HS #30 ml 12/07/15 Insulin Sliding Scale [Novolog Vial Sliding Scale -] See Protocol SQ AC 30 Days 12/07/15 Mag Hydrox/Al Hydrox/Simeth [Mylanta *Suspension*] 30 ml PO Q6H #56 cup Metoclopramide HCl [Reglan -] 10 mg PO TIDAC #42 tablet 12/23/16 Ondansetron HCl [Zofran] 8 mg PO TID PRN #14 tablet 12/23/16 Pantoprazole Sodium [Protonix -] 40 mg PO DAILY #14 tab 12/23/16 Sucralfate [Carafate -] 2 gm PO BID #24 tablet 12/23/16 This patient is new to me today: No Emergency Visit: No Critical Care patient: No - Discharge Referral Referred to [facility] No
== END 2016-12-23 15:47 | disposition home or self-care (01) | DRG 638 ==
LOC: FER 13:00 → JICU 18:36 → J5S 12-22 23:35
PROVIDERS: ADMIT Internal Medicine; ATTEND Internal Medicine
DX: E10.10 Type 1 diabetes mellitus with ketoacidosis without coma (principal); E87.2 Acidosis; F11.20 Opioid dependence, uncomplicated; E87.1 Hypo-osmolality and hyponatremia; Z79.4 Long term (current) use of insulin; E87.6 Hypokalemia; Z72.0 Tobacco use; G89.29 Other chronic pain; E10.42 Type 1 diabetes mellitus with diabetic polyneuropathy; Z91.14 Patient's other noncompliance with medication regimen; D72.829 Elevated white blood cell count, unspecified
CPT/HCPCS: 36415; 71010-TC; 80048; 80053; 80307; 81003; 81015; 82009; 82150; 82550; 82803; 83605; 83690; 83735; 84100; 84484; 84703; 85025; 87040; 87086; 93005; 99285-25

== ENCOUNTER 2017-06-11 15:58 | Inpatient (IN) | payer OTHER ==
--- NOTE | 2017-06-11 16:50 | PDOC ---
History of Present Illness - General Chief Complaint: Vomiting/Diarrhea Stated Complaint: v/d Time Seen by Provider: 06/11/17 16:22 History Source: Patient Exam Limitations: No Limitations Past History - Past Medical History Allergies/Adverse Reactions: Allergies Allergy/AdvReac Type Severity Reaction Status Date / Time No Known Allergies Allergy Verified 06/11/17 16:00 Home Medications: Ambulatory Orders Morphine Sulfate [Ms Contin] 120 mg PO BID 06/20/15 Oxycodone HCl/Acetaminophen [Percocet 10-325 mg Tablet] 1 - 2 tab PO Q6H Insulin (Levemir) [Levemir Vial] 20 unit SQ HS #30 ml 12/07/15 Insulin Sliding Scale [Novolog Vial Sliding Scale -] See Protocol SQ AC 30 Days units 12/07/15 Mag Hydrox/Al Hydrox/Simeth [Mylanta *Suspension*] 30 ml PO Q6H #56 cup Metoclopramide HCl [Reglan -] 10 mg PO TIDAC #42 tablet 12/23/16 Ondansetron HCl [Zofran] 8 mg PO TID PRN #14 tablet 12/23/16 Pantoprazole Sodium [Protonix -] 40 mg PO DAILY #14 tab 12/23/16 Sucralfate [Carafate -] 2 gm PO BID #24 tablet 12/23/16 COPD: No Diabetes: Yes (TYPE I, DKA) GI Disorders: Yes (GASTROPARESIS) - Surgical History Cholecystectomy: Yes (AGE 19) - Immunization History Td Vaccination: Yes Immunization Up to Date: Yes - Suicide/Smoking/Psychosocial Hx Smoking Status: Yes Smoking History: Current every day smoker Years of Tobacco Use: 15 Have you smoked in the past 12 months: Yes Number of Cigarettes Smoked Daily: 25 Information on smoking cessation initiated: Yes 'Breaking Loose' booklet given: 06/11/17 Hx Alcohol Use: No Drug/Substance Use Hx: No Substance Use Type: None Hx Substance Use Treatment: No *Physical Exam - Vital Signs Last Vital Signs Temp Pulse Resp BP Pulse Ox 98.4 F 112 H 18 125/73 100 06/11/17 16:00 06/11/17 16:00 06/11/17 16:00 06/11/17 16:00 06/11/17 16:00 ED Treatment Course - ADDITIONAL ORDERS Additional order review: Laboratory Results 06/11/17 16:09 POC Glucometer [phone] 06/11/17 16:09 POC Glucometer 204.80542 *DC/Admit/Observation/Transfer - Referrals Referrals: aHrriet Tripp MD [Primary Care Provider] - - Patient Instructions - Post Discharge Activity
[2017-06-11] MEDS ORDERED: SODIUM CHLORIDE 1,000 ML IV ONE ×2 (16:54→17:57)
--- NOTE | 2017-06-11 16:55 | PDOC ---
History of Present Illness - General History Source: Patient Exam Limitations: No Limitations - History of Present Illness Initial Comments: 06/11/17 17:24 Patient is a 47 year old female with a significant past medical history of IDDM , non-compliance with insulin therapy, multiple previous admissions for DKA, gastroparesis, chronic back pain (on opiates) who presents to the ED with complaints of nausea and vomiting that began 1.5 days ago. Patient reports she began experiencing nausea and vomiting 1.5 days ago but states she did not come to ED stating I thought it would pass. Patient reports checking her blood sugar 1.5 days ago and states the results showed 400+ results. She reports believing she is currently in DKA as she states it feels just like before. Patient reports experiencing chronic back and leg pain but states she has not taken any prescribed pain medication secondary to vomiting. Patients current blood sugar levels are 204 here in the ED. Denies fever, chills. Denies constipation, dysuria, hematuria. Denies contact with sick individual, out of state travel. Denies any other symptoms. Allergies: None Social history: current smoker (1 pack per day). No alcohol. Current Marijuana smoker (once per month). Surgical history: None PMD: Dr. Tripp <Gaurang Ochoa - Last Filed: 06/11/17 17:24> - General History Source: Patient Exam Limitations: No Limitations - History of Present Illness Initial Comments: Medical decision makin:30 This is a 47-year-old female who is insulin-dependent diabetic and has history of DKA in the past. Patient is complaining of elevated sugars and nausea and vomiting and concerned about DKA. We will order fluids 2 L wide open and as initial bolus CBC, metabolic profile, EKG, chest x-ray ordered. Initial fingerstick is 204 well hold insulin in tell I have a glucose I from the lab 18:00 Glucose value from the lab is 330 however patient has received 2 L of fluid at this time and a repeat fingerstick blood sugar is 130 insulin held and insulin drip not started 18:30 Assessment and plan: This is a 47-year-old female who has a history of DKA in the past. Patient came in with an elevated sugar and her initial set of labs show a very mild anion gap of 20. Otherwise patient's potassium is normal and she has had no further vomiting in the emergency room. Patient has received 2 L of fluid with a fingerstick blood sugar of 1:30 now. Patient's EKG and chest x-ray are still pending Patient will be admitted admitted to an inpatient bed however before admission I am repeating a basic metabolic profile to see if the anion gap has also resolved with the fluid. Patient also complaining of increased chronic pain as she said she was unable to take her medication secondary to vomiting. Patient was given 8 mg of morphine and 1 mg of Dilaudid here in the emergency room for her chronic pain Discussed admission with a hospitalist service patient is septic for admission to an inpatient bed. <Margo Manzo I - Last Filed: 06/11/17 18:34> - General Chief Complaint: Vomiting/Diarrhea Stated Complaint: v/d Time Seen by Provider: 06/11/17 16:22 Past History <Gaurang Ochoa - Last Filed: 06/11/17 17:24> - Past Medical History COPD: No Diabetes: Yes (TYPE I, DKA) GI Disorders: Yes (GASTROPARESIS) - Surgical History Cholecystectomy: Yes (AGE 19) - Immunization History Td Vaccination: Yes Immunization Up to Date: Yes - Suicide/Smoking/Psychosocial Hx Smoking Status: Yes Smoking History: Current every day smoker Years of Tobacco Use: 15 Have you smoked in the past 12 months: Yes Number of Cigarettes Smoked Daily: 25 Information on smoking cessation initiated: Yes 'Breaking Loose' booklet given: 06/11/17 Hx Alcohol Use: No Drug/Substance Use Hx: No Substance Use Type: None Hx Substance Use Treatment: No <Margo Manzo I - Last Filed: 06/11/17 18:34> - Past Medical History Allergies/Adverse Reactions: Allergies Allergy/AdvReac Type Severity Reaction Status Date / Time No Known Allergies Allergy Verified 06/11/17 18:21 Home Medications: Ambulatory Orders Morphine Sulfate [Ms Contin] 30 mg PO QID 06/20/15 Oxycodone HCl/Acetaminophen [Percocet 10-325 mg Tablet] 1 - 2 tab PO BID Insulin Sliding Scale [Novolog Vial Sliding Scale -] See Protocol SQ AC 30 Days units 12/07/15 Insulin Glargine,Hum.rec.anlog [Lantus Solostar PEN (NF)] 12 units SQ HS 12/13/ 17 Review of Systems - Review of Systems Able to Perform ROS?: Yes Comments:: 06/11/17 17:24 General: No fevers or chills, no weakness, no weight loss HEENT: No change in vision. No sore throat, No ear pain CardioVascular: No chest pain or shortness of breath Respiratory:No cough, or wheezing. Gastrointestinal: +Nausea, +Vomiting. no diarrhea or constipation, No rectal bleeding Genitourinary: No dysuria, hematuria, or frequency Musculoskeletal: No joint or muscle pain or swelling Neurologic: No headache, vertigo, dizziness or loss of consciousness Psychiatric: nor depression Skin: No rashes or easy bruising Endocrine: no increased thirst or abnormal weight change Allergic: no skin or latex allergy All other systems reviewed and normal All Other Systems: Reviewed and Negative <Gaurang Ochoa - Last Filed: 06/11/17 17:24> *Physical Exam - Vital Signs Last Vital Signs Temp Pulse Resp BP Pulse Ox 98.4 F 112 H 18 125/73 100 06/11/17 16:00 06/11/17 16:00 06/11/17 16:00 06/11/17 16:00 06/11/17 16:00 - Physical Exam Comments: 06/11/17 17:24 General: Well-nourished well-developed individual, no acute distress HEENT: Throat: Normal, tonsils normal, no erythema or exudate Neck: Supple, no meningeal signs, no lymphadenopathy Eyes::Pupils equal reactive and round, extraocular motion intact Chest: Nontender to palpation Cardiac: S1-S2 normal, regular rate and rhythm, no murmurs rubs or gallops Respiratory: Lungs clear to auscultation bilateral Abdomen: Soft, nondistended, normal bowel sounds, nontender to palpation diffusely Extremities: Warm, dry, no cyanosis, clubbing, or edema Skin: No rashes Neuro: Alert and oriented x3, nonfocal exam, grossly intact, Psych: Normal mood and affect <Gaurang Ochoa - Last Filed: 06/11/17 17:24> - Vital Signs Last Vital Signs Temp Pulse Resp BP Pulse Ox 98.4 F 112 H 18 125/73 100 06/11/17 16:00 06/11/17 16:00 06/11/17 16:00 06/11/17 16:00 06/11/17 16:00 <Margo Manzo I - Last Filed: 06/11/17 18:34> ED Treatment Course - LABORATORY CBC & Chemistry Diagram: 06/11/17 17:21 06/11/17 17:21 - ADDITIONAL ORDERS Additional order review: Laboratory Results 06/11/17 16:09 POC Glucometer [id number] 06/11/17 16:09 POC Glucometer 204.77114 - Medications Given in the ED: ED Medications Discontinued Medications Generic Name Dose Route Start Last Admin Trade Name Donavan PRN Reason Stop Dose Admin Morphine Sulfate 8 mg 06/11/17 17:07 06/11/17 17:19 Morphine Injection - IVPUSH 06/11/17 17:08 8 mg ONCE ONE Administration Ondansetron HCl 4 mg 06/11/17 17:19 06/11/17 17:19 Zofran Injection IVPB 06/11/17 17:20 4 mg ONCE ONE Administration <Gaurang Ochoa - Last Filed: 06/11/17 17:24> - LABORATORY CBC & Chemistry Diagram: 06/11/17 17:21 06/11/17 17:21 - ADDITIONAL ORDERS Additional order review: Laboratory Results 06/11/17 16:09 POC Glucometer [id number] 06/11/17 16:09 POC Glucometer 204.08916 <Margo Manzo I - Last Filed: 06/11/17 18:34> Medical Decision Making - Critical Care Time Total Critical Care Time (minutes): 30 Critical Care Statement: The care of this patient involved high complexity decision making to prevent further life threatening deterioration of the patient 's condition and/or to evaluate & treat vital organ system(s) failure or risk of failure. <Margo Manzo I - Last Filed: 06/11/17 18:34> *DC/Admit/Observation/Transfer - Attestations Scribe Attestion: 06/11/17 17:24 Documentation prepared by Gaurang Ochoa, acting as biomedical engineering internship for Margo Manzo MD/DO. <Gaurang Ochoa - Last Filed: 06/11/17 17:24> - Discharge Dispostion Admit: Yes <Margo Manzo I - Last Filed: 06/11/17 18:34> Diagnosis at time of Disposition: Diabetic ketoacidosis - Referrals Referrals: Harriet Tripp MD [Primary Care Provider] - - Patient Instructions - Post Discharge Activity
[2017-06-11] MEDS ORDERED: morphine CARPU-JECT 4 MG/1 ML DISP.SYRIN IVPUSH ONE (17:07)
[2017-06-11] MEDS ORDERED: morphine CARPU-JECT 10 MG/1 ML DISP.SYRIN ONE (17:12)
[2017-06-11] MEDS ORDERED: ONDANSETRON 4 MG/2 ML VIAL ONE (17:16)
[2017-06-11] MEDS ORDERED: ONDANSETRON 4 MG/2 ML VIAL IVPB ONE (17:19)
[2017-06-11 17:43] LABS: ALBUMIN 4.5 g/dl (3.5-5.0); ALK PHOS 97 U/L (32-92); ANION GAP 20 (8-16); BILIRUBIN,TOTAL 1.1 mg/dl (0.2-1.0); CALCIUM 9.9 mg/dl (8.4-10.2); CO2 22 mmol/L (22-28); CREATININE 1.5 mg/dl (0.6-1.3); MCH 29.1 pg (25.7-33.7); MCHC 33.8 g/dl (32.0-36.0); MEAN CELL VOLUME 86.2 fl (80-96); MEAN PLT VOLUME 8.9 fl (7.5-11.1); PLATELET COUNT 498 K/MM3 (134-434); SGOT/AST 26 U/L (10-42); SGPT/ALT 16 U/L (10-40); TOT PROT 8.2 g/dl (6.4-8.3); WHITE BLOOD COUNT 20.7 K/mm3 (4.0-10.8)
[2017-06-11 17:47] LABS: GLUCOSE,RANDOM 330 mg/dl (74-106)
[2017-06-11] MEDS ORDERED: INSULIN REGULAR HUMAN 100 UNITS/ML *VIAL IVPUSH ONE (17:56)
[2017-06-11] MEDS ORDERED: HEMOQUE TEST 1 EACH EACH ONE (18:00)
[2017-06-11] MEDS ORDERED: INSULIN REGULAR 100 UNITS in SODIUM CHLORIDE 99 ML IVPB SCH (18:00)
[2017-06-11] MEDS ORDERED: HYDROmorphone HCL CARPU-JECT 1 MG/1 ML DISP.SYRIN IVPUSH ONE (18:07)
[2017-06-11] MEDS ORDERED: HYDROmorphone HCL CARPU-JECT 1 MG/1 ML DISP.SYRIN ONE (18:08)
[2017-06-11 18:09] LABS: PLATELET ESTIMATE SLT INCREASE
[2017-06-11 19:45] LABS: URINE APPEARANCE Cloudy; URINE BILIRUBIN 3+ (NEGATIVE); URINE GLUCOSE (UA) 2+ (NEGATIVE); URINE KETONE 3+ (NEGATIVE); URINE LEUK ESTERASE Negative (NEGATIVE); URINE NITRITE Negative (NEGATIVE); URINE UROBILINOGEN 0.2 (0.2-1.0)
[2017-06-11 19:47] LABS: URINE BLOOD Trace-intact (NEGATIVE); URINE COLOR YELLOW; URINE PROTEIN 3+ (NEGATIVE)
[2017-06-11 19:59] LABS: ANION GAP 15 (8-16); CALCIUM 8.8 mg/dl (8.4-10.2); CO2 24 mmol/L (22-28); CREATININE 1.3 mg/dl (0.6-1.3); GLUCOSE,RANDOM 280 mg/dl (74-106)
[2017-06-11 20:02] LABS: URINE BACTERIA FEW /hpf (NEGATIVE); URINE WBC 0-2 (0-5)
[2017-06-11 20:46] VITALS: BMI 23.3
--- NOTE | 2017-06-11 20:56 | HP ---
Admitting History and Physical - Primary Care Physician PCP: Harriet Tripp - Admission Chief Complaint: Nausea, Vomiting History of Present Illness: This is a 47 y/o woman with a PMHx of: IDDM (non- complaint), chronic back pain , gastroparesis. Who presents to the ED with nausea and vomiting x several days. Patient reports not taking her insulin or pain medication in 2-3 days. Patient denies fever, chills, cough, SOB, CP, AP, diarrhea, constipation, dysuria. 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: Yes: Migraine Gastrointestinal: Yes: Other (Gastroparesis) ...LMP: 04/14/13 Musculoskeletal: Yes: Chronic low back pain Endocrine: Yes: Diabetes Mellitus Additional Past Medical History: TMJ - Past Surgical History Past Surgical History: Yes: Cholecystectomy - Smoking History Smoking history: Current every day smoker Have you smoked in the past 12 months: Yes Aproximately how many cigarettes per day: 25 - Alcohol/Substance Use Hx Alcohol Use: No History of Substance Use: reports: None - Social History Usual Living Arrangement: Yes: Alone ADL: Independent History of Recent Travel: No Home Medications - Allergies Allergies/Adverse Reactions: Allergies Allergy/AdvReac Type Severity Reaction Status Date / Time No Known Allergies Allergy Verified 06/11/17 18:21 - Home Medications Home Medications: Ambulatory Orders Morphine Sulfate [Ms Contin] 30 mg PO QID 06/20/15 Oxycodone HCl/Acetaminophen [Percocet 10-325 mg Tablet] 1 - 2 tab PO BID Insulin Sliding Scale [Novolog Vial Sliding Scale -] See Protocol SQ AC 30 Days units 12/07/15 Insulin Glargine,Hum.rec.anlog [Lantus Solostar PEN (NF)] 12 units SQ HS Family Disease History - Family Disease History Family History: Unable to Obtain Review of Systems - Review of Systems Constitutional: reports: Loss of Appetite Eyes: reports: No Symptoms HENT: reports: Ear Pain, Other (Jaw Pain) Neck: reports: No Symptoms Cardiovascular: reports: No Symptoms Respiratory: reports: No Symptoms Gastrointestinal: reports: Nausea, Vomiting Genitourinary: reports: No Symptoms Breasts: reports: No Symptoms Reported Musculoskeletal: reports: Back Pain Integumentary: reports: No Symptoms Neurological: reports: No Symptoms Endocrine: reports: Increased Thirst Hematology/Lymphatic: reports: No Symptoms Psychiatric: reports: No Symptoms Pain Intensity: 7 Physical Examination Vital Signs: Vital Signs Temperature 98.4 F 06/11/17 16:00 Pulse Rate 94 H 06/11/17 20:22 Respiratory Rate 17 06/11/17 20:22 Blood Pressure 152/83 06/11/17 20:22 O2 Sat by Pulse Oximetry (%) 100 06/11/17 20:22 Constitutional: Yes: Anxious, Moderate Distress, Thin Eyes: Yes: Conjunctiva Clear, EOM Intact, PERRL HENT: Yes: WNL, Atraumatic, Normocephalic Neck: Yes: WNL, Supple, Trachea Midline Cardiovascular: Yes: WNL, Regular Rate and Rhythm, Murmur, S1, S2 Respiratory: Yes: WNL, Regular, CTA Bilaterally Gastrointestinal: Yes: Normal Bowel Sounds, Soft, Tenderness, Epigastrium ...Rectal Exam: Yes: Deferred Renal/: Yes: WNL Breast(s): Yes: WNL Musculoskeletal: Yes: Back Pain Extremities: Yes: WNL Edema: No Peripheral Pulses WNL: Yes Integumentary: Yes: Tattoos Neurological: Yes: WNL, Alert, Oriented, Cran Nerves II-XII Intact ...Motor Strength: WNL Psychiatric: Yes: Alert, Oriented, Agitated Labs: CBC, BMP 06/11/17 17:21 06/11/17 18:46 Laboratory Results - last 24 hr 06/11/17 06/11/17 06/11/17 16:09 17:21 17:21 WBC 20.7 H RBC 5.06 Hgb 14.7 Hct 43.6 MCV 86.2 MCH 29.1 MCHC 33.8 RDW 14.0 Plt Count 498 H MPV 8.9 Neutrophils % No Result Required. Neutrophils % (Manual) 88.0 H Band Neutrophils % 5.0 Lymphocytes % No Result Required. Lymphocytes % (Manual) 6.0 L Monocytes % (Manual) 1 L Platelet Estimate Slt increase Sodium 133 L Potassium 3.6 Chloride 91 L Carbon Dioxide 22 D Anion Gap 20 H BUN 36 H Creatinine 1.5 H D Creat Clearance w eGFR 37.06 POC Glucometer 204.56445 Random Glucose 330 H* D Lactic Acid Calcium 9.9 Total Bilirubin 1.1 H D AST 26 D ALT 16 Alkaline Phosphatase 97 H Total Protein 8.2 Albumin 4.5 Urine Color Urine Appearance Urine pH Ur Specific P[place] Urine Protein Urine Glucose (UA) Urine Ketones Urine Blood Urine Nitrite Urine Bilirubin Urine Urobilinogen Ur Leukocyte Esterase Urine RBC Urine WBC Ur Epithelial Cells Urine Bacteria Urine HCG, Qual Acetone, Qual 06/11/17 06/11/17 06/11/17 18:02 18:46 18:46 WBC RBC Hgb Hct MCV MCH MCHC RDW Plt Count MPV Neutrophils % Neutrophils % (Manual) Band Neutrophils % Lymphocytes % Lymphocytes % (Manual) Monocytes % (Manual) Platelet Estimate Sodium 135 L Potassium 3.8 Chloride 96 L Carbon Dioxide 24 Anion Gap 15 BUN 34 H Creatinine 1.3 Creat Clearance w eGFR POC Glucometer 130.67089 Random Glucose 280 H Lactic Acid Calcium 8.8 Total Bilirubin AST ALT Alkaline Phosphatase Total Protein Albumin Urine Color Urine Appearance Urine pH Ur Specific [place] Urine Protein Urine Glucose (UA) Urine Ketones Urine Blood Urine Nitrite Urine Bilirubin Urine Urobilinogen Ur Leukocyte Esterase Urine RBC Urine WBC Ur Epithelial Cells Urine Bacteria Urine HCG, Qual Acetone, Qual Positive small 1+ H 06/11/17 06/11/17 06/11/17 18:52 19:37 19:37 WBC RBC Hgb Hct MCV MCH MCHC RDW Plt Count MPV Neutrophils % Neutrophils % (Manual) Band Neutrophils % Lymphocytes % Lymphocytes % (Manual) Monocytes % (Manual) Platelet Estimate Sodium Potassium Chloride Carbon Dioxide Anion Gap BUN Creatinine Creat Clearance w eGFR POC Glucometer Random Glucose Lactic Acid 1.6 Calcium Total Bilirubin AST ALT Alkaline Phosphatase Total Protein Albumin Urine Color Yellow Urine Appearance Cloudy Urine pH 5.0 Ur Specific [place] >= 1.030 H Urine Protein 3+ H D Urine Glucose (UA) 2+ H Urine Ketones 3+ H Urine Blood Trace-intact H Urine Nitrite Negative Urine Bilirubin 3+ H Urine Urobilinogen 0.2 Ur Leukocyte Esterase Negative Urine RBC 5-10 Urine WBC 0-2 Ur Epithelial Cells Few Urine Bacteria Few Urine HCG, Qual Negative Acetone, Qual 06/11/17 06/11/17 06/12/17 21:03 23:19 00:00 WBC RBC Hgb Hct MCV MCH MCHC RDW Plt Count MPV Neutrophils % Neutrophils % (Manual) Band Neutrophils % Lymphocytes % Lymphocytes % (Manual) Monocytes % (Manual) Platelet Estimate Sodium 136 Potassium 3.4 L Chloride 97 L Carbon Dioxide 23 Anion Gap 16 BUN 28 H D Creatinine 1.4 H D Creat Clearance w eGFR POC Glucometer 316 258 Random Glucose 165 H D Lactic Acid Calcium 8.5 Total Bilirubin AST ALT Alkaline Phosphatase Total Protein Albumin Urine Color Urine Appearance Urine pH Ur Specific [place] Urine Protein Urine Glucose (UA) Urine Ketones Urine Blood Urine Nitrite Urine Bilirubin Urine Urobilinogen Ur Leukocyte Esterase Urine RBC Urine WBC Ur Epithelial Cells Urine Bacteria Urine HCG, Qual Acetone, Qual 06/12/17 02:02 WBC RBC Hgb Hct MCV MCH MCHC RDW Plt Count MPV Neutrophils % Neutrophils % (Manual) Band Neutrophils % Lymphocytes % Lymphocytes % (Manual) Monocytes % (Manual) Platelet Estimate Sodium Potassium Chloride Carbon Dioxide Anion Gap BUN Creatinine Creat Clearance w eGFR POC Glucometer 255 Random Glucose Lactic Acid Calcium Total Bilirubin AST ALT Alkaline Phosphatase Total Protein Albumin Urine Color Urine Appearance Urine pH Ur Specific [place] Urine Protein Urine Glucose (UA) Urine Ketones Urine Blood Urine Nitrite Urine Bilirubin Urine Urobilinogen Ur Leukocyte Esterase Urine RBC Urine WBC Ur Epithelial Cells Urine Bacteria Urine HCG, Qual Acetone, Qual Imaging - Results Chest X-ray: Report Reviewed EKG: Image Reviewed Problem List - Problems (1) Diabetic keto-acidosis Code(s): E13.10 - OTH DIABETES MELLITUS WITH KETOACIDOSIS WITHOUT COMA (2) Diabetes mellitus, insulin dependent (IDDM), uncontrolled Code(s): E10.65 - TYPE 1 DIABETES MELLITUS WITH HYPERGLYCEMIA (3) Gastroparesis Code(s): K31.84 - GASTROPARESIS (4) Leukocytosis Code(s): D72.829 - ELEVATED WHITE BLOOD CELL COUNT, UNSPECIFIED (5) Chronic pain Code(s): G89.29 - OTHER CHRONIC PAIN (6) DVT prophylaxis Code(s): [id number] - Assessment/Plan This is a 47 y/o woman with a PMHx of: IDDM (non-complaint), Gastroparesis, Chronic Back Pain. Placed on Observation for DKA Plan: 1. DKA - NS bolus x2 given in ED, AG gap 20~15, - Started pt on 1/2NS @250ml, FS Q2h, BMP Q4h until serum Glucose < 250mg/dl, then D51/2NS with KCL 20meq. - Continue ISS, keep NPO for now until patient can tolerate PO. - Patient would benefit from Endocrinology f/u in outpatient setting upon d/c. - Monitor vitals - Replete lytes as indicated 2. IDDM Uncontrolled - Secondary to non-compliance vs Gastroparesis flare - See above - HgbA1C in am 3. Gastroparesis - Monitor BMP - Continue IVF - NPO for now, until able to tolerate PO - Antiemetic, pain meds prn - Monitor vitals 4. Leukocytosis - Likely secondary to reactive response - Repeat CBC in am - Will not empirically treat with ABX now, will await , UC 5. Chronic Back Pain - Opioid Intolerant - Morphine Sulfate prn, until patient can tolerate PO, then d/c and continue home meds - f/u with Pain Mgmt in outpatient for your pain meds upon d/c - Fall Precautions - Monitor vitals 6. FEN - D51/2NS+ KCL 20MEQ@100ml/hr - Replete lytes - NPO 7. DVT Prophylaxis - OOB - SCDs Code Status: Full Code Dispo: Observation Visit type - Emergency Visit Emergency Visit: Yes ED Registration Date: 06/11/17 Care time: The patient presented to the Emergency Department on the above date and was hospitalized for further evaluation of their emergent condition. - New Patient This patient is new to me today: Yes Date on this admission: 06/11/17 - Critical Care Critical Care patient: No
[2017-06-11] MEDS: INSULIN SLIDING SCALE (NOVOLOG) 1 VIAL SQ SCH (21:00)
[2017-06-11] MEDS ORDERED: SODIUM CHLORIDE 0.45% 1,000 ML IV SCH (21:00)
[2017-06-11] MEDS ORDERED: ONDANSETRON 4 MG/2 ML VIAL IVPUSH PRN (21:58)
[2017-06-12] MEDS ORDERED: morphine CARPU-JECT 4 MG/1 ML DISP.SYRIN IVPUSH PRN (00:48)
[2017-06-12] MEDS ORDERED: morphine SULFATE 4 MG/ML VIAL ONE (00:50)
[2017-06-12 01:06] LABS: ANION GAP 16 (8-16); CALCIUM 8.5 mg/dL (8.5-10.1); CO2 23 mmol/L (21-32); CREATININE 1.4 mg/dL (0.55-1.02); GLUCOSE,RANDOM 165 mg/dL (74-106)
[2017-06-12] MEDS ORDERED: morphine SULFATE 4 MG/ML VIAL IVPUSH PRN (01:43)
[2017-06-12] MEDS ORDERED: D5-1/2NS+20 MEQ KCL - 20 MEQ/1,000 ML INFUS.BAG IV SCH (02:15)
[2017-06-12 04:52] LABS: ANION GAP 15 (8-16); CALCIUM 7.5 mg/dL (8.5-10.1); CO2 19 mmol/L (21-32); CREATININE 0.8 mg/dL (0.55-1.02)
[2017-06-12 05:19] LABS: GLUCOSE,RANDOM 332 mg/dL (74-106)
[2017-06-12] MEDS: INSULIN SLIDING SCALE (NOVOLOG) 1 VIAL SQ SCH ×4 (07:00→21:05)
[2017-06-12] MEDS: SODIUM CHLORIDE 0.9%/KCL 20 MEQ/1,000 ML INFUS.BAG IV SCH (09:22)
--- NOTE | 2017-06-12 09:31 | PN ---
Physical Exam: SUBJECTIVE: Patient seen and examined, patient reports ongoing nausea, denies any tactile fever. OBJECTIVE: patient is a 47 y/o woman with a PMHx of: IDDM, chronic back pain, gastroparesis, and TMJ, patient was admitted from the emergency department for DKA. Vital Signs Period Temp Pulse Resp BP Sys/Rapp Pulse Ox Last 24 Hr 98.2 F-99.2 F 90-112 17-18 125-158/67-83 95-100 GENERAL: The patient is awake, alert, and fully oriented, in no acute distress. HEAD: Normal with no signs of trauma. EYES: PERRL, extraocular movements intact, sclera anicteric, conjunctiva clear. No ptosis. ENT: Ears normal, nares patent, oropharynx clear without exudates, moist mucous membranes. NECK: Trachea midline, full range of motion, supple. LUNGS: Breath sounds equal, clear to auscultation bilaterally, no wheezes, no crackles, no accessory muscle use. HEART: Regular rate and rhythm, S1, S2 without murmur, rub or gallop. ABDOMEN: Soft, nontender, nondistended, normoactive bowel sounds, no guarding, no rebound, no hepatosplenomegaly, no masses. EXTREMITIES: 2+ pulses, warm, well-perfused, no edema. NEUROLOGICAL: Cranial nerves II through XII grossly intact. Normal speech, gait not observed. PSYCH: Normal mood, normal affect. SKIN: Warm, dry, normal turgor, no rashes or lesions noted Laboratory Results - last 24 hr CBC WBC 22.5 K/mm3 (4.0-10.8) H 06/12/17 07:30 RBC 4.07 M/mm3 (3.60-5.2) 06/12/17 07:30 Hgb 12.2 GM/dl (10.7-15.3) D 06/12/17 07:30 Hct 35.8 % (32.4-45.2) D 06/12/17 07:30 MCV 87.9 fl (80-96) 06/12/17 07:30 MCH 30.1 pg (25.7-33.7) 06/12/17 07:30 MCHC 34.2 g/dl (32.0-36.0) 06/12/17 07:30 RDW 13.8 % (11.6-15.6) 06/12/17 07:30 Plt Count 351 K/MM3 (134-434) D 06/12/17 07:30 MPV 9.1 fl (7.5-11.1) 06/12/17 07:30 Neutrophils % 82.0 % (42.8-82.8) 06/12/17 07:30 Neutrophils % (Manual) 88.0 % (42.8-82.8) H 06/11/17 17:21 Band Neutrophils % 5.0 % (0-10) 06/11/17 17:21 Lymphocytes % 13.7 % (8-40) D 06/12/17 07:30 Lymphocytes % (Manual) 6.0 % (8-40) L 06/11/17 17:21 Monocytes % 3.3 % (3.8-10.2) L 06/12/17 07:30 Monocytes % (Manual) 1 % (3.8-10.2) L 06/11/17 17:21 Eosinophils % 0.0 % (0-4.5) D 06/12/17 07:30 Basophils % 1.0 % (0-2.0) 06/12/17 07:30 Platelet Estimate Slt increase 06/11/17 17:21 CMP Sodium 134 mmol/L (136-145) L 06/12/17 07:30 Potassium 3.2 mmol/L (3.5-5.1) L 06/12/17 07:30 Chloride 101 mmol/L (98-107) 06/12/17 07:30 Carbon Dioxide 20 mmol/L (22-28) L 06/12/17 07:30 Anion Gap 13 (8-16) 06/12/17 07:30 BUN 19 mg/dl (7-18) H D 06/12/17 07:30 Creatinine 0.9 mg/dl (0.6-1.3) D 06/12/17 07:30 Creat Clearance w eGFR 37.06 (>60) 06/11/17 17:21 POC Glucometer 208 UNITS (80-120) 06/12/17 11:36 Random Glucose 219 mg/dl (74-106) H D 06/12/17 07:30 Hemoglobin A1c % 11.2 % (4.8-6.0) H D 06/12/17 07:30 Lactic Acid 1.6 mmol/L (0.4-2.0) 06/11/17 18:52 Calcium 8.4 mg/dl (8.4-10.2) 06/12/17 07:30 Magnesium 1.9 mg/dL (1.8-2.4) 06/12/17 07:00 Total Bilirubin 1.1 mg/dl (0.2-1.0) H D 06/11/17 17:21 AST 26 U/L (10-42) D 06/11/17 17:21 ALT 16 U/L (10-40) 06/11/17 17:21 Alkaline Phosphatase 97 U/L (32-92) H 06/11/17 17:21 Total Protein 8.2 g/dl (6.4-8.3) 06/11/17 17:21 Albumin 4.5 g/dl (3.5-5.0) 06/11/17 17:21 Active Medications Generic Name Dose Route Start Last Admin Trade Name Freq PRN Reason Stop Dose Admin Potassium Chloride/Sodium Chloride 20 meq in 1,000 mls @ 100 mls/hr 06/12/17 06:30 06/12/17 09:22 Ns+20 Meq Kcl - IV 100 mls/hr ASDIR [facility] Administration Insulin Aspart 1 vial 06/11/17 22:00 06/12/17 07:00 Novolog Vial Sliding Scale - SQ 10 units ACHS [facility] Administration Protocol Morphine Sulfate 4 mg 06/12/17 01:43 06/12/17 07:00 Morphine Sulfate IVPUSH 4 mg Q6H PRN Administration PAIN Ondansetron HCl 4 mg 06/11/17 21:58 06/11/17 21:20 Zofran Injection IVPUSH 4 mg Q4H PRN Administration NAUSEA AND/OR VOMITING ASSESSMENT/PLAN: 1. endo DKA - anion gap closed, continue IVF, fingerstick novolog achs, with levermir 15 units - appreciate endo input, Dr Martin (patient's private field applications specialist) - pending tsh and t4 2) GI diabetic gastroperesis - start reglan q6h prn when able to tolerate will switch to po - start protonix 3) ID leukocytosis - secondary to leukamoid response, f/u blood and urine cultures, repeat cbc in am 4) ms chronic back pain - new [facility] - [place] technical training manager # [phone] verifed home dose pain medication, restart morphine ir 30mg q6h and percocet 10/325mg q4h 5. FEN - D51/2NS+ KCL 20MEQ@100ml/hr hypokalemia - replete potassium, recheck today at 1800 - diabetic diet - dietary consult for patient teaching 7. DVT Prophylaxis - OOB - SCDs Code Status: Full Code Dispo: Observation Visit type - Emergency Visit Emergency Visit: Yes ED Registration Date: 06/11/17 Care time: The patient presented to the Emergency Department on the above date and was hospitalized for further evaluation of their emergent condition. - New Patient This patient is new to me today: No - Critical Care Critical Care patient: No - Discharge Referral Referred to [facility] Med [facility] No
[2017-06-12 09:33] LABS: MCH 30.1 pg (25.7-33.7); MCHC 34.2 g/dl (32.0-36.0); MEAN CELL VOLUME 87.9 fl (80-96); MEAN PLT VOLUME 9.1 fl (7.5-11.1); PLATELET COUNT 351 K/MM3 (134-434); RDW 13.8 % (11.6-15.6); WHITE BLOOD COUNT 22.5 K/mm3 (4.0-10.8)
[2017-06-12 09:42] LABS: ANION GAP 13 (8-16); CALCIUM 8.4 mg/dl (8.4-10.2); CO2 20 mmol/L (22-28); CREATININE 0.9 mg/dl (0.6-1.3); GLUCOSE,RANDOM 219 mg/dl (74-106)
[2017-06-12] MEDS ORDERED: POTASSIUM CHLORIDE TABS 20 MEQ TABLET.ER (FP) PO ONE (10:20)
[2017-06-12] MEDS ORDERED: MAGNESIUM SULFATE 2 GM in SODIUM CHLORIDE 100 ML IVPB ONE (12:31)
--- NOTE | 2017-06-12 12:46 | EKG ---
Test Reason : Blood Pressure : / mmHG Vent. Rate : 099 BPM Atrial Rate : 099 BPM P-R Int : 116 ms QRS Dur : 102 ms QT Int : 356 ms P-R-T Axes : 070 075 -02 degrees QTc Int : 456 ms SINUS RHYTHM NONSPECIFIC ST AND T WAVE ABNORMALITY ABNORMAL ECG WHEN COMPARED WITH ECG OF 21-DEC-2016 13:39, NONSPECIFIC T WAVE ABNORMALITY are more prominent in inferior leads Confirmed by JALIL MINAYA MD ([id number]) on 06/12/2017 12:46:30 PM Referred By: MD AYALA Confirmed By:JALIL MINAYA MD
[2017-06-12] MEDS: morphine SULFATE IMMEDIATE RELEASE 30 MG TAB PO PRN (12:58)
[2017-06-12] MEDS ORDERED: MAGNESIUM SULF 50% (8.12 MEQ/2 ML-1 GM VIAL) ONE (13:01)
[2017-06-12] MEDS ORDERED: MAGNESIUM SULF 50% (8.12 MEQ/2 ML-1 GM VIAL) IVPB ONE (14:00)
[2017-06-12 14:40] LABS: THYROXINE (T4) 10.7 ug/dl (4.8-13.9)
[2017-06-12 14:46] LABS: THYROID STIMULATING HORMONE 0.8 uIU/ml (0.358-3.74)
[2017-06-12] MEDS: PANTOPRAZOLE SODIUM 40 MG VIAL IVPUSH SCH (15:46)
[2017-06-12] MEDS: METOCLOPRAMIDE HCL INJECTION 10 MG/2 ML VIAL IVPUSH PRN (16:20)
[2017-06-12] MEDS ORDERED: INSULIN DETEMIR 100 UNITS/ML MDV SQ SCH (22:00)
[2017-06-13] MEDS: METOCLOPRAMIDE HCL INJECTION 10 MG/2 ML VIAL IVPUSH PRN ×2 (01:16→08:07)
[2017-06-13] MEDS: morphine SULFATE IMMEDIATE RELEASE 30 MG TAB PO PRN ×3 (04:23→21:29)
[2017-06-13] MEDS ORDERED: IBUPROFEN 400 MG TABLET (FP) PO ONE (05:08)
[2017-06-13] MEDS ORDERED: REFRIGERATED ANITBIOTICS ONE (06:08)
[2017-06-13] MEDS: SODIUM CHLORIDE 0.9%/KCL 20 MEQ/1,000 ML INFUS.BAG IV SCH ×2 (07:56→15:44)
[2017-06-13 08:34] LABS: ALBUMIN 3.4 g/dl (3.5-5.0); ALK PHOS 93 U/L (32-92); ANION GAP 6 (8-16); BILIRUBIN,TOTAL 0.8 mg/dl (0.2-1.0); CALCIUM 8.2 mg/dl (8.4-10.2); CO2 24 mmol/L (22-28); CREATININE 0.6 mg/dl (0.6-1.3); MAGNESIUM 2.3 mg/dL (1.8-2.4); PHOSPHOROUS 1.9 mg/dl (2.5-4.6); SGOT/AST 73 U/L (10-42); SGPT/ALT 26 U/L (10-40); TOT PROT 6.5 g/dl (6.4-8.3)
[2017-06-13 08:42] LABS: GLUCOSE,RANDOM 328 mg/dl (74-106)
--- NOTE | 2017-06-13 08:46 | PN ---
Physical Exam: SUBJECTIVE: Patient seen and examined, reports feeling slightly improved denies any abdominal pain OBJECTIVE:patient is a 47 y/o woman with a PMHx of: IDDM, chronic back pain, gastroparesis, and TMJ, patient was admitted from the emergency department for DKA. Vital Signs Period Temp Pulse Resp BP Sys/Rapp Pulse Ox Last 24 Hr 97.6 F-98.2 F 74-80 18-19 125-128/64-84 100-100 GENERAL: The patient is awake, alert, and fully oriented, in no acute distress. HEAD: Normal with no signs of trauma. EYES: PERRL, extraocular movements intact, sclera anicteric, conjunctiva clear. No ptosis. ENT: Ears normal, nares patent, oropharynx clear without exudates, moist mucous membranes. NECK: Trachea midline, full range of motion, supple. LUNGS: Breath sounds equal, clear to auscultation bilaterally, no wheezes, no crackles, no accessory muscle use. HEART: Regular rate and rhythm, S1, S2 without murmur, rub or gallop. ABDOMEN: Soft, nontender, nondistended, normoactive bowel sounds, no guarding, no rebound, no hepatosplenomegaly, no masses. EXTREMITIES: 2+ pulses, warm, well-perfused, no edema. NEUROLOGICAL: Cranial nerves II through XII grossly intact. Normal speech, gait not observed. PSYCH: Normal mood, normal affect. SKIN: Warm, dry, normal turgor, no rashes or lesions noted Laboratory Results - last 24 hr CBC WBC 13.3 K/mm3 (4.0-10.8) H D 06/13/17 07:30 RBC 4.00 M/mm3 (3.60-5.2) 06/13/17 07:30 Hgb 12.2 GM/dl (10.7-15.3) 06/13/17 07:30 Hct 35.4 % (32.4-45.2) 06/13/17 07:30 MCV 88.5 fl (80-96) 06/13/17 07:30 MCH 30.5 pg (25.7-33.7) 06/13/17 07:30 MCHC 34.5 g/dl (32.0-36.0) 06/13/17 07:30 RDW 13.8 % (11.6-15.6) 06/13/17 07:30 Plt Count 309 K/MM3 (134-434) 06/13/17 07:30 MPV 8.9 fl (7.5-11.1) 06/13/17 07:30 Neutrophils % 69.7 % (42.8-82.8) 06/13/17 07:30 Neutrophils % (Manual) 88.0 % (42.8-82.8) H 06/11/17 17:21 Band Neutrophils % 5.0 % (0-10) 06/11/17 17:21 Lymphocytes % 26.3 % (8-40) D 06/13/17 07:30 Lymphocytes % (Manual) 6.0 % (8-40) L 06/11/17 17:21 Monocytes % 3.3 % (3.8-10.2) L 06/13/17 07:30 Monocytes % (Manual) 1 % (3.8-10.2) L 06/11/17 17:21 Eosinophils % 0.4 % (0-4.5) D 06/13/17 07:30 Basophils % 0.3 % (0-2.0) 06/13/17 07:30 Platelet Estimate Slt increase 06/11/17 17:21 CMP Sodium 131 mmol/L (136-145) L 06/13/17 07:30 Potassium 4.5 mmol/L (3.5-5.1) D 06/13/17 07:30 Chloride 101 mmol/L (98-107) 06/13/17 07:30 Carbon Dioxide 24 mmol/L (22-28) 06/13/17 07:30 Anion Gap 6 (8-16) L 06/13/17 07:30 BUN 9 mg/dl (7-18) D 06/13/17 07:30 Creatinine 0.6 mg/dl (0.6-1.3) D 06/13/17 07:30 Creat Clearance w eGFR > 60 (>60) 06/13/17 07:30 POC Glucometer 169 UNITS (80-120) 06/13/17 11:44 Random Glucose 328 mg/dl (74-106) H* D 06/13/17 07:30 Hemoglobin A1c % 11.2 % (4.8-6.0) H D 06/12/17 07:30 Lactic Acid 1.6 mmol/L (0.4-2.0) 06/11/17 18:52 Calcium 8.2 mg/dl (8.4-10.2) L 06/13/17 07:30 Phosphorus 1.9 mg/dl (2.5-4.6) L D 06/13/17 07:30 Magnesium 2.3 mg/dL (1.8-2.4) D 06/13/17 07:30 Total Bilirubin 0.8 mg/dl (0.2-1.0) D 06/13/17 07:30 AST 73 U/L (10-42) H D 06/13/17 07:30 ALT 26 U/L (10-40) D 06/13/17 07:30 Alkaline Phosphatase 93 U/L (32-92) H 06/13/17 07:30 Total Protein 6.5 g/dl (6.4-8.3) D 06/13/17 07:30 Albumin 3.4 g/dl (3.5-5.0) L D 06/13/17 07:30 TSH 0.80 uIU/ml (0.358-3.74) 06/12/17 07:30 Active Medications Generic Name Dose Route Start Last Admin Trade Name Freq PRN Reason Stop Dose Admin Enoxaparin Sodium 40 mg 06/13/17 10:00 06/13/17 09:11 Lovenox - SQ 40 mg DAILY [facility] Administration Potassium Chloride/Sodium Chloride 20 meq in 1,000 mls @ 75 mls/hr 06/13/17 13 :53 Ns+20 Meq Kcl - IV ASDIR [facility] Insulin Aspart 1 vial 06/11/17 22:00 06/13/17 11:54 Novolog Vial Sliding Scale - SQ 2 units ACHS [facility] Administration Protocol Insulin Detemir 10 units 06/13/17 10:00 06/13/17 09:00 Levemir Vial SQ 10 unit DAILY [facility] Administration Metoclopramide HCl 10 mg 06/13/17 11:00 06/13/17 12:02 Reglan - PO 10 mg ACHS [facility] Administration Morphine Sulfate 30 mg 06/12/17 11:06 06/13/17 12:10 Msir - PO 30 mg Q6H PRN Administration PAIN SCALE 6-10 Nicotine 14 mg 06/13/17 13:30 06/13/17 13:49 Nicoderm Patch - TD 14 mg DAILY [facility] Administration Oxycodone/Acetaminophen 2 combo 06/12/17 11:05 06/12/17 20:43 Percocet 5/325 - PO 2 combo Q6H PRN Administration PAIN LEVEL 1-5 Pantoprazole Sodium 40 mg 06/12/17 13:15 06/13/17 09:11 Protonix Iv IVPUSH 40 mg DAILY [facility] Administration Microbiology 06/11/17 19:37 Urine - Urine Clean Catch Urine Culture - Final Contaminated: Please Repeat 06/11/17 19:27 Blood - Peripheral Venous Blood Culture - Preliminary NO GROWTH OBTAINED AFTER 24 HOURS, INCUBATION TO CONTINUE FOR 4 DAYS. 06/11/17 19:27 Blood - Peripheral Venous Blood Culture - Preliminary NO GROWTH OBTAINED AFTER 24 HOURS, INCUBATION TO CONTINUE FOR 4 DAYS. ASSESSMENT/PLAN: 1. endo DKA - resolved, continue fingersticks achs with levermir 10 units daily - contacted Dr Martin (patient's private technical support internship) unavailable for consult, Dr Bashir consulted - tsh wnl 2) GI diabetic gastroperesis - tolerating full liquid diet, transition to reglan achs - continue protonix 3) ID leukocytosis - secondary to leukamoid response, patient is afebrile, wbc downtrending, blood cultuures are negative to date, repeat urine culture ordered - repeat cbc in am 4) ms chronic back pain - [facility] crime lab analyst # [phone] verifed home dose pain medication, restart morphine ir 30mg q6h and percocet 10/325mg q4h 5. FEN - D51/2NS+ KCL 20MEQ@ 75ml/hr hypokalemia - resolved, replete phos, na phos gtt ordered - diabetic diet - dietary consult for patient teaching 7. DVT Prophylaxis - OOB - SCDs Code Status: Full Code Dispo: Observation Visit type - Emergency Visit Emergency Visit: Yes ED Registration Date: 06/14/17 Care time: The patient presented to the Emergency Department on the above date and was hospitalized for further evaluation of their emergent condition. - New Patient This patient is new to me today: No - Critical Care Critical Care patient: No - Discharge Referral Referred to [facility] Med P.C.: No
--- NOTE | 2017-06-13 08:46 | CONSULT ---
Consult Consult Specialty:: Endocrinology Referred by:: Demi Russo Reason for Consultation:: Hyperglycemia - History of Present Illness Chief Complaint: Nausea, vomiting History of Present Illness: This is a 47 year old female with history of IDDM, non-compliance with insulin therapy, multiple previous admissions for DKA,gastroparesis, chronic back pain (on opiates) who presents to the ED with complaints of nausea and vomiting that began 1.5 days before day of admission. Patient reports she began experiencing nausea and vomiting 1.5 days ago but states she did not come to ED stating I thought it would pass. Patient reports her blood sugar was > 500 for which she took 12 units of Novolog, repeat blood glucose was "Hi" so she took more Insulin and came to hospital. She reported believing she was in DKA when she presented to ED as she states it feels just like before. Pt says she still has diarrhoea and had vomited once today. No abd pain. Takes Lantus 12 daily at HS and Novolog 5 to 10 units with meals. Says she has been taking her meds regularly as prescribed. 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: Yes: Migraine Gastrointestinal: Yes: Other (Gastroparesis) ...LMP: 04/14/13 Musculoskeletal: Yes: Chronic low back pain Endocrine: Yes: Diabetes Mellitus Additional Medical History: dka in the past - Past Surgical History Past Surgical History: Yes: Cholecystectomy - Alcohol/Substance Use Hx Alcohol Use: No History of Substance Use: reports: None - Smoking History Smoking history: Current every day smoker Have you smoked in the past 12 months: Yes Aproximately how many cigarettes per day: 25 - Social History ADL: Independent History of Recent Travel: No Home Medications - Allergies Allergies/Adverse Reactions: Allergies Allergy/AdvReac Type Severity Reaction Status Date / Time No Known Allergies Allergy Verified 06/11/17 18:21 - Home Medications Home Medications: Ambulatory Orders Morphine Sulfate [Ms Contin] 30 mg PO QID 06/20/15 Oxycodone HCl/Acetaminophen [Percocet 10-325 mg Tablet] 1 - 2 tab PO BID Insulin Sliding Scale [Novolog Vial Sliding Scale -] See Protocol SQ AC 30 Days units 12/07/15 Insulin Glargine,Hum.rec.anlog [Lantus Solostar PEN (NF)] 12 units SQ HS Review of Systems - Review of Systems Constitutional: reports: Loss of Appetite, Malaise Eyes: reports: No Symptoms HENT: reports: No Symptoms Neck: reports: No Symptoms Cardiovascular: reports: No Symptoms Respiratory: reports: No Symptoms Gastrointestinal: reports: Diarrhea, Vomiting Genitourinary: reports: No Symptoms Breasts: reports: No Symptoms Reported Integumentary: reports: No Symptoms Neurological: reports: No Symptoms Endocrine: reports: No Symptoms Physical Exam Vital Signs: Vital Signs Temperature 98.2 F 06/13/17 03:00 Pulse Rate 74 06/13/17 03:00 Respiratory Rate 19 06/13/17 03:00 Blood Pressure 128/64 06/13/17 03:00 O2 Sat by Pulse Oximetry (%) 100 06/12/17 22:09 Constitutional: Yes: Calm Eyes: Yes: Conjunctiva Clear, EOM Intact HENT: Yes: Atraumatic, Normocephalic Neck: Yes: Supple, Trachea Midline Cardiovascular: Yes: Regular Rate and Rhythm Respiratory: Yes: Regular, CTA Bilaterally Gastrointestinal: Yes: Normal Bowel Sounds, Soft Musculoskeletal: Yes: WNL Extremities: Yes: WNL Edema: No Neurological: Yes: Alert, Oriented Assessment/Plan AP; DM; Uncontrolled Levemir 10 units daily starting this morning Didint' get it last night Novolog SS coverage. Electrolyte replacement as necessary
[2017-06-13] MEDS: INSULIN SLIDING SCALE (NOVOLOG) 1 VIAL SQ SCH ×4 (08:59→21:30)
[2017-06-13] MEDS: INSULIN DETEMIR 100 UNITS/ML MDV SQ SCH (09:00)
[2017-06-13 09:08] LABS: BASO % 0.3 % (0-2.0); EOS % 0.4 % (0-4.5); MCH 30.5 pg (25.7-33.7); MCHC 34.5 g/dl (32.0-36.0); MEAN CELL VOLUME 88.5 fl (80-96); MEAN PLT VOLUME 8.9 fl (7.5-11.1); NEUT % 69.7 % (42.8-82.8); PLATELET COUNT 309 K/MM3 (134-434); RDW 13.8 % (11.6-15.6); WHITE BLOOD COUNT 13.3 K/mm3 (4.0-10.8)
[2017-06-13] MEDS: PANTOPRAZOLE SODIUM 40 MG VIAL IVPUSH SCH (09:11)
[2017-06-13] MEDS: ENOXAPARIN NA (PORCINE) 40 MG/0.4 ML DISP.SYRIN SQ SCH (09:11)
[2017-06-13] MEDS ORDERED: SODIUM PHOSPHATE - 21 MM in SODIUM CHLORIDE 250 ML IVPB ONE (09:15)
[2017-06-13] MEDS: METOCLOPRAMIDE HCL 10 MG TABLET (FP) PO SCH ×3 (12:02→21:30)
[2017-06-13] MEDS: NICOTINE 14 MG/24 HOURS TOPICAL PATCH TD SCH (13:49)
[2017-06-13] MEDS ORDERED: INSULIN (NOVOLOG) ASPART 100 UNITS/ML 10ML VIAL ONE ×2 (17:00→21:27)
[2017-06-13 19:21] LABS: MAGNESIUM 2.1 mg/dL (1.8-2.4); PHOSPHOROUS 3.2 mg/dL (2.5-4.9)
[2017-06-14] MEDS: morphine SULFATE IMMEDIATE RELEASE 30 MG TAB PO PRN ×4 (03:41→21:54)
[2017-06-14] MEDS: INSULIN SLIDING SCALE (NOVOLOG) 1 VIAL SQ SCH ×4 (06:26→21:55)
[2017-06-14] MEDS: METOCLOPRAMIDE HCL 10 MG TABLET (FP) PO SCH ×4 (06:26→21:54)
[2017-06-14 08:23] LABS: BASO % 1.1 % (0-2.0); EOS % 0.7 % (0-4.5); MCH 28.8 pg (25.7-33.7); MCHC 32.8 g/dl (32.0-36.0); MEAN CELL VOLUME 87.8 fl (80-96); NEUT % 58.3 % (42.8-82.8); PLATELET COUNT 265 K/MM3 (134-434); RDW 13.8 % (11.6-15.6); WHITE BLOOD COUNT 9.3 K/mm3 (4.0-10.8)
[2017-06-14 08:33] LABS: ALBUMIN 3.2 g/dl (3.5-5.0); ALK PHOS 78 U/L (32-92); ANION GAP 12 (8-16); BILIRUBIN,TOTAL 0.7 mg/dl (0.2-1.0); CALCIUM 8.7 mg/dl (8.4-10.2); CO2 20 mmol/L (22-28); CREATININE 0.7 mg/dl (0.6-1.3); GLUCOSE,RANDOM 270 mg/dl (74-106); MAGNESIUM 1.9 mg/dL (1.8-2.4); PHOSPHOROUS 1.8 mg/dl (2.5-4.6); SGOT/AST 41 U/L (10-42); SGPT/ALT 18 U/L (10-40); TOT PROT 6.2 g/dl (6.4-8.3)
[2017-06-14] MEDS: ENOXAPARIN NA (PORCINE) 40 MG/0.4 ML DISP.SYRIN SQ SCH (09:43)
[2017-06-14] MEDS: NICOTINE 14 MG/24 HOURS TOPICAL PATCH TD SCH (09:43)
[2017-06-14] MEDS: INSULIN DETEMIR 100 UNITS/ML MDV SQ SCH (09:56)
--- NOTE | 2017-06-14 10:47 | PN ---
Physical Exam: SUBJECTIVE: Patient seen and examined C/O jaw pain / TMJ , /10 , not relieved with current meds tolerated diet this am OBJECTIVE: Vital Signs Period Temp Pulse Resp BP Sys/Rapp Pulse Ox Last 24 Hr 98.7 F-99.0 F 72-81 16-21 126-156/65-85 99-100 GENERAL: The patient is awake, alert, and fully oriented, in no acute distress. EYES: PERRL, extraocular movements intact, sclera anicteric, conjunctiva clear. No ptosis. ENT: Ears normal, nares patent, oropharynx clear without exudates, moist mucous membranes. LUNGS: Breath sounds equal, clear to auscultation bilaterally, no wheezes, no crackles, no accessory muscle use. HEART: Regular rate and rhythm, S1, S2 without murmur, rub or gallop. EXTREMITIES: 2+ pulses, warm, well-perfused, no edema. NEUROLOGICAL: Cranial nerves II through XII grossly intact. Normal speech, gait not observed. PSYCH: Normal mood, normal affect. Laboratory Results - last 24 hr 06/12/17 06/13/17 06/13/17 04:00 11:44 17:03 WBC RBC Hgb Hct MCV MCH MCHC RDW Plt Count MPV Neutrophils % Lymphocytes % Monocytes % Eosinophils % Basophils % Sodium 134 L Potassium 4.1 D Chloride 100 Carbon Dioxide 19 L Anion Gap 15 BUN 24 H Creatinine 0.8 D Creat Clearance w eGFR POC Glucometer 169 103 Random Glucose 332 H* D Calcium 7.5 L Phosphorus 3.2 D Magnesium 2.1 Total Bilirubin AST ALT Alkaline Phosphatase Total Protein Albumin 06/13/17 06/14/17 06/14/17 21:03 06:07 07:30 WBC 9.3 D RBC 3.82 Hgb 11.0 Hct 33.6 MCV 87.8 MCH 28.8 MCHC 32.8 RDW 13.8 Plt Count 265 MPV 9.0 Neutrophils % 58.3 Lymphocytes % 35.4 D Monocytes % 4.5 Eosinophils % 0.7 Basophils % 1.1 D Sodium Potassium Chloride Carbon Dioxide Anion Gap BUN Creatinine Creat Clearance w eGFR POC Glucometer 323 396 Random Glucose Calcium Phosphorus Magnesium Total Bilirubin AST ALT Alkaline Phosphatase Total Protein Albumin 06/14/17 07:30 WBC RBC Hgb Hct MCV MCH MCHC RDW Plt Count MPV Neutrophils % Lymphocytes % Monocytes % Eosinophils % Basophils % Sodium 131 L Potassium 3.7 Chloride 99 Carbon Dioxide 20 L Anion Gap 12 BUN 7 D Creatinine 0.7 Creat Clearance w eGFR > 60 POC Glucometer Random Glucose 270 H Calcium 8.7 Phosphorus 1.8 L Magnesium 1.9 Total Bilirubin 0.7 AST 41 D ALT 18 D Alkaline Phosphatase 78 Total Protein 6.2 L Albumin 3.2 L Active Medications Generic Name Dose Route Start Last Admin Trade Name Freq PRN Reason Stop Dose Admin Enoxaparin Sodium 40 mg 06/13/17 10:00 06/14/17 09:43 Lovenox - SQ 40 mg DAILY [facility] Administration Potassium Chloride/Sodium Chloride 20 meq in 1,000 mls @ 75 mls/hr 06/13/17 13 :53 06/13/17 15:44 Ns+20 Meq Kcl - IV 75 mls/hr ASDIR [facility] Administration Insulin Aspart 1 vial 06/11/17 22:00 06/14/17 06:26 Novolog Vial Sliding Scale - SQ 10 units ACHS [facility] Administration Protocol Insulin Detemir 10 units 06/13/17 10:00 06/14/17 09:56 Levemir Vial SQ 10 unit DAILY [facility] Administration Metoclopramide HCl 10 mg 06/13/17 11:00 06/14/17 06:26 Reglan - PO 10 mg ACHS [facility] Administration Morphine Sulfate 30 mg 06/12/17 11:06 06/14/17 09:41 Msir - PO 30 mg Q6H PRN Administration PAIN SCALE 6-10 Nicotine 14 mg 06/13/17 13:30 06/14/17 09:43 Nicoderm Patch - TD 14 mg DAILY [facility] Administration Oxycodone/Acetaminophen 2 combo 06/12/17 11:05 06/12/17 20:43 Percocet 5/325 - PO 2 combo Q6H PRN Administration PAIN LEVEL 1-5 Pantoprazole Sodium 40 mg 06/12/17 13:15 06/13/17 09:11 Protonix Iv IVPUSH 40 mg DAILY [facility] Administration ASSESSMENT/PLAN: 1. DKA - resolved - however BG is not controlled over the last 24HR . Diet was initiated and she no longer has vomiting . Endo consult noted - increase basal insulin to 15 - c/w sliding scale - advance diet to DM - ambulate to increase BG utilization - c/w sliding scale - IVF 2. Intractible pain - TMJ - requesting tramadol or toradol - will d/c percocet as patient is on MS - one dose toradol trial 3. GI PPX - will change protonix to PO 4 . Electrolyte imbalance - supplement phos Due to high risk for DKA and need for ongoing monitoring, IVF , IV electrolyte supplementation plan of care meets necessity for an ongoing hospitalization . Will admit as an inpatient Visit type - Emergency Visit Emergency Visit: Yes ED Registration Date: 06/11/17 Care time: The patient presented to the Emergency Department on the above date and was hospitalized for further evaluation of their emergent condition. - New Patient This patient is new to me today: Yes Date on this admission: 06/14/17 - Critical Care Critical Care patient: No - Discharge Referral Referred to [facility] Med P.C.: Yes
[2017-06-14] MEDS ORDERED: INSULIN DETEMIR 100 UNITS/ML MDV SQ ONE (10:48)
[2017-06-14] MEDS ORDERED: INSULIN DETEMIR 100 UNITS/ML MDV SQ SCH (10:48)
[2017-06-14] MEDS ORDERED: KETOROLAC TROMETHAMINE 10 MG TABLET PO ONE (10:49)
[2017-06-14] MEDS ORDERED: SODIUM PHOSPHATE - 0 MM in SODIUM CHLORIDE 250 ML IVPB ONE (10:55)
[2017-06-14] MEDS ORDERED: SODIUM PHOSPHATE - 21 MM in SODIUM CHLORIDE 250 ML IVPB ONE (11:45)
[2017-06-14] MEDS: SODIUM CHLORIDE 0.9%/KCL 20 MEQ/1,000 ML INFUS.BAG IV SCH (16:02)
--- NOTE | 2017-06-14 16:14 | PN ---
Progress Note (short form) - Note Progress Note: feels better No N/V, No diarrhoea Blood sugar 300s Vital Signs Period Temp Pulse Resp BP Sys/Rapp Pulse Ox Last 24 Hr 98.7 F-99.0 F 72-81 16-21 126-156/65-85 99-100 PE: Aox3 Neck: Supple, No JVD HEENT: PERRL, EOMI Lungs:CTA CVS" S1S2 Abd: Benign Ext: No edema Neuro: No focal deficit CMP Sodium 131 mmol/L (136-145) L 06/14/17 07:30 Potassium 3.7 mmol/L (3.5-5.1) 06/14/17 07:30 Chloride 99 mmol/L (98-107) 06/14/17 07:30 Carbon Dioxide 20 mmol/L (22-28) L 06/14/17 07:30 Anion Gap 12 (8-16) 06/14/17 07:30 BUN 7 mg/dl (7-18) D 06/14/17 07:30 Creatinine 0.7 mg/dl (0.6-1.3) 06/14/17 07:30 Creat Clearance w eGFR > 60 (>60) 06/14/17 07:30 POC Glucometer 318 UNITS (80-120) 06/14/17 11:28 Random Glucose 270 mg/dl (74-106) H 06/14/17 07:30 Hemoglobin A1c % 11.2 % (4.8-6.0) H D 06/12/17 07:30 Lactic Acid 1.6 mmol/L (0.4-2.0) 06/11/17 18:52 Calcium 8.7 mg/dl (8.4-10.2) 06/14/17 07:30 Phosphorus 1.8 mg/dl (2.5-4.6) L 06/14/17 07:30 Magnesium 1.9 mg/dL (1.8-2.4) 06/14/17 07:30 Total Bilirubin 0.7 mg/dl (0.2-1.0) 06/14/17 07:30 AST 41 U/L (10-42) D 06/14/17 07:30 ALT 18 U/L (10-40) D 06/14/17 07:30 Alkaline Phosphatase 78 U/L (32-92) 06/14/17 07:30 Total Protein 6.2 g/dl (6.4-8.3) L 06/14/17 07:30 Albumin 3.2 g/dl (3.5-5.0) L 06/14/17 07:30 TSH 0.80 uIU/ml (0.358-3.74) 06/12/17 07:30 Current Medications Generic Name Dose Route Start Last Admin Trade Name Freq PRN Reason Stop Dose Admin Enoxaparin Sodium 40 mg 06/13/17 10:00 06/14/17 09:43 Lovenox - SQ 40 mg DAILY [facility] Administration Potassium Chloride/Sodium Chloride 20 meq in 1,000 mls @ 75 mls/hr 06/13/17 13 :53 06/14/17 16:02 Ns+20 Meq Kcl - IV 75 mls/hr ASDIR [facility] Administration Insulin Aspart 1 vial 06/11/17 22:00 06/14/17 11:31 Novolog Vial Sliding Scale - SQ 8 units ACHS [facility] Administration Protocol Insulin Detemir 15 units 06/14/17 10:48 Levemir Vial SQ DAILY [facility] Metoclopramide HCl 10 mg 06/13/17 11:00 06/14/17 11:21 Reglan - PO 10 mg ACHS [facility] Administration Morphine Sulfate 30 mg 06/12/17 11:06 06/14/17 16:03 Msir - PO 30 mg Q6H PRN Administration PAIN SCALE 6-10 Nicotine 14 mg 06/13/17 13:30 06/14/17 09:43 Nicoderm Patch - TD 14 mg DAILY [facility] Administration Oxycodone/Acetaminophen 2 combo 06/12/17 11:05 06/12/17 20:43 Percocet 5/325 - PO 2 combo Q6H PRN Administration PAIN LEVEL 1-5 Pantoprazole Sodium 20 mg 06/15/17 10:00 Protonix - PO DAILY [facility] AP: DM: Uncontrolled Levemir increased to 15 daily Increase Novolog coverage Replace electrolytes as necessary
[2017-06-15] MEDS: morphine SULFATE IMMEDIATE RELEASE 30 MG TAB PO PRN ×2 (04:59→18:39)
[2017-06-15] MEDS: METOCLOPRAMIDE HCL 10 MG TABLET (FP) PO SCH ×4 (06:33→22:10)
[2017-06-15] MEDS: INSULIN SLIDING SCALE (NOVOLOG) 1 VIAL SQ SCH ×4 (06:34→22:13)
[2017-06-15 08:39] LABS: BASO % 0.6 % (0-2.0); EOS % 0.8 % (0-4.5); MCH 30.1 pg (25.7-33.7); MEAN CELL VOLUME 88.5 fl (80-96); MEAN PLT VOLUME 9.2 fl (7.5-11.1); NEUT % 67.8 % (42.8-82.8); PLATELET COUNT 289 K/MM3 (134-434); RDW 13.4 % (11.6-15.6); WHITE BLOOD COUNT 10.1 K/mm3 (4.0-10.8)
[2017-06-15 09:14] LABS: ANION GAP 10 (8-16); CALCIUM 8.9 mg/dl (8.4-10.2); CO2 24 mmol/L (22-28); CREATININE 0.6 mg/dl (0.6-1.3)
[2017-06-15 09:25] LABS: GLUCOSE,RANDOM 406 mg/dl (74-106)
[2017-06-15] MEDS: NICOTINE 14 MG/24 HOURS TOPICAL PATCH TD SCH (09:41)
[2017-06-15] MEDS: PANTOPRAZOLE 20 MG TABLET (FP) PO SCH (09:41)
[2017-06-15] MEDS: ENOXAPARIN NA (PORCINE) 40 MG/0.4 ML DISP.SYRIN SQ SCH (09:41)
--- NOTE | 2017-06-15 09:42 | PN ---
Physical Exam: SUBJECTIVE: Patient seen and examined. No complaints. OBJECTIVE: Hypoglycemic to 60 yesterday evening, hyperglycemic to 406 this morning. Vital Signs Period Temp Pulse Resp BP Sys/Rapp Pulse Ox Last 24 Hr 98.0 F-98.7 F 72-95 19-20 116-167/63-75 96-100 GENERAL: The patient is awake, alert, and fully oriented, in no acute distress. HEAD: Normal with no signs of trauma. EYES: PERRL, extraocular movements intact, sclera anicteric, conjunctiva clear. No ptosis. ENT: Ears normal, nares patent, oropharynx clear without exudates, moist mucous membranes. NECK: Trachea midline, full range of motion, supple. LUNGS: Breath sounds equal, clear to auscultation bilaterally, no wheezes, no crackles, no accessory muscle use. HEART: Regular rate and rhythm, S1, S2 without murmur, rub or gallop. ABDOMEN: Soft, mild tenderness over bladder, nondistended, normoactive bowel sounds, no guarding, no rebound, no hepatosplenomegaly, no masses. EXTREMITIES: 2+ pulses, warm, well-perfused, no edema. NEUROLOGICAL: Cranial nerves II through XII grossly intact. Normal speech, gait not observed. PSYCH: Normal mood, normal affect. SKIN: Warm, dry, normal turgor, no rashes or lesions noted Laboratory Results - last 24 hr 06/14/17 06/14/17 06/14/17 11:28 16:35 21:53 WBC RBC Hgb Hct MCV MCH MCHC RDW Plt Count MPV Neutrophils % Lymphocytes % Monocytes % Eosinophils % Basophils % Sodium Potassium Chloride Carbon Dioxide Anion Gap BUN Creatinine POC Glucometer 318 60 138 Random Glucose Calcium 06/15/17 06/15/17 06/15/17 06:00 06:00 06:30 WBC 10.1 RBC 4.09 Hgb 12.3 D Hct 36.2 MCV 88.5 MCH 30.1 MCHC 34.0 RDW 13.4 Plt Count 289 MPV 9.2 Neutrophils % 67.8 Lymphocytes % 26.5 D Monocytes % 4.3 Eosinophils % 0.8 Basophils % 0.6 Sodium 131 L Potassium 4.4 Chloride 97 L Carbon Dioxide 24 Anion Gap 10 BUN 13 D Creatinine 0.6 POC Glucometer 375 Random Glucose 406 H* D Calcium 8.9 Active Medications Generic Name Dose Route Start Last Admin Trade Name Freq PRN Reason Stop Dose Admin Docusate Sodium 100 mg 06/15/17 14:00 Colace - PO TID [facility] Enoxaparin Sodium 40 mg 06/13/17 10:00 06/15/17 09:41 Lovenox - SQ 40 mg DAILY [facility] Administration Potassium Chloride/Sodium Chloride 20 meq in 1,000 mls @ 75 mls/hr 06/13/17 13 :53 06/14/17 16:02 Ns+20 Meq Kcl - IV 75 mls/hr ASDIR [facility] Administration Insulin Aspart 1 vial 06/14/17 16:30 06/15/17 06:34 Novolog Vial Sliding Scale - SQ 12 units TIDAC [facility] Administration Protocol Insulin Aspart 1 vial 06/14/17 22:00 06/14/17 21:55 Novolog Vial Sliding Scale - SQ Not Given HS [facility] Protocol Insulin Detemir 15 units 06/14/17 10:48 Levemir Vial SQ DAILY [facility] Metoclopramide HCl 10 mg 06/13/17 11:00 06/15/17 06:33 Reglan - PO 10 mg ACHS [facility] Administration Morphine Sulfate 30 mg 06/12/17 11:06 06/15/17 04:59 Msir - PO 30 mg Q6H PRN Administration PAIN SCALE 6-10 Nicotine 14 mg 06/13/17 13:30 06/15/17 09:41 Nicoderm Patch - TD 14 mg DAILY [facility] Administration Oxycodone/Acetaminophen 2 combo 06/12/17 11:05 06/12/17 20:43 Percocet 5/325 - PO 2 combo Q6H PRN Administration PAIN LEVEL 1-5 Pantoprazole Sodium 20 mg 06/15/17 10:00 06/15/17 09:41 Protonix - PO 20 mg DAILY [facility] Administration Microbiology 06/13/17 13:00 Urine - Urine Clean Catch Urine Culture - Preliminary Presumptive Mssa (Pbp2a Neg) 06/11/17 19:27 Blood - Peripheral Venous Blood Culture - Preliminary NO GROWTH OBTAINED AFTER 72 HOURS, INCUBATION TO CONTINUE FOR 2 DAYS. 06/11/17 19:27 Blood - Peripheral Venous Blood Culture - Preliminary NO GROWTH OBTAINED AFTER 72 HOURS, INCUBATION TO CONTINUE FOR 2 DAYS. 06/11/17 19:37 Urine - Urine Clean Catch Urine Culture - Final Contaminated: Please Repeat ASSESSMENT/PLAN: 47 year old female with IDDM, gastroparesis, and chronic back pain admitted with vomiting and brittle hyperglycemia. 1. Endocrine: brittle IDDM - Dr. Luis following; discussed recent fingersticks with him and Levemir/ISS adjusted - Monitor overnight, ok to dc tomorrow if in safe range 2. Diabetic gastroperesis - Continue Reglan, protonix - Tolerating diet 3. Leukocytosis - Resolved - Start Keflex for UTI (culture positive) 4. Chronic back pain - [facility] [employer] # [phone] verified home dose pain medication; re-start morphine ir 30mg q6h and percocet 10/325mg q4h - Requests us to continue Toradol as patient had good pain relief last night with this 5. F/E/N - Diabetic diet, dietary teaching 6. Ppx - OOB, SCDs Code Status: Full Code Dispo: Anticipate dc tomorrow
[2017-06-15] MEDS: INSULIN DETEMIR 100 UNITS/ML MDV SQ SCH (11:23)
[2017-06-15] MEDS ORDERED: INSULIN (NOVOLOG) ASPART 100 UNITS/ML 10ML VIAL ONE (11:58)
[2017-06-15] MEDS: CEPHALEXIN MONOHYDRATE 500 MG CAPSULE (UD) PO SCH ×2 (13:09→18:40)
[2017-06-15] MEDS: DOCUSATE SODIUM 100 MG CAPSULE (FP) PO SCH ×2 (13:10→22:10)
[2017-06-15] MEDS: KETOROLAC TROMETHAMINE 15 MG/ML VIAL IVPUSH PRN ×2 (15:47→22:23)
--- NOTE | 2017-06-15 16:25 | PN ---
Progress Note (short form) - Note Progress Note: feels better No no complaints Blood sugar fluctuating Vital Signs Period Temp Pulse Resp BP Sys/Rapp Pulse Ox Last 24 Hr 98.0 F-98.7 F 72-95 19-20 116-167/63-75 96-100 PE: Aox3 Neck: Supple, No JVD HEENT: PERRL, EOMI Lungs:CTA CVS" S1S2 Abd: Benign Ext: No edema Neuro: No focal deficit CMP Sodium 131 mmol/L (136-145) L 06/15/17 06:00 Potassium 4.4 mmol/L (3.5-5.1) 06/15/17 06:00 Chloride 97 mmol/L (98-107) L 06/15/17 06:00 Carbon Dioxide 24 mmol/L (22-28) 06/15/17 06:00 Anion Gap 10 (8-16) 06/15/17 06:00 BUN 13 mg/dl (7-18) D 06/15/17 06:00 Creatinine 0.6 mg/dl (0.6-1.3) 06/15/17 06:00 Creat Clearance w eGFR > 60 (>60) 06/14/17 07:30 POC Glucometer 358 UNITS (80-120) 06/15/17 11:55 Random Glucose 406 mg/dl (74-106) H* D 06/15/17 06:00 Hemoglobin A1c % 11.2 % (4.8-6.0) H D 06/12/17 07:30 Lactic Acid 1.6 mmol/L (0.4-2.0) 06/11/17 18:52 Calcium 8.9 mg/dl (8.4-10.2) 06/15/17 06:00 Phosphorus 1.8 mg/dl (2.5-4.6) L 06/14/17 07:30 Magnesium 1.9 mg/dL (1.8-2.4) 06/14/17 07:30 Total Bilirubin 0.7 mg/dl (0.2-1.0) 06/14/17 07:30 AST 41 U/L (10-42) D 06/14/17 07:30 ALT 18 U/L (10-40) D 06/14/17 07:30 Alkaline Phosphatase 78 U/L (32-92) 06/14/17 07:30 Total Protein 6.2 g/dl (6.4-8.3) L 06/14/17 07:30 Albumin 3.2 g/dl (3.5-5.0) L 06/14/17 07:30 TSH 0.80 uIU/ml (0.358-3.74) 06/12/17 07:30 Current Medications Generic Name Dose Route Start Last Admin Trade Name Freq PRN Reason Stop Dose Admin Cephalexin HCl 500 mg 06/15/17 12:00 06/15/17 13:09 Keflex - PO 500 mg Q6HPO [facility] Administration Docusate Sodium 100 mg 06/15/17 14:00 06/15/17 13:10 Colace - PO 100 mg TID [facility] Administration Enoxaparin Sodium 40 mg 06/13/17 10:00 06/15/17 09:41 Lovenox - SQ 40 mg DAILY [facility] Administration Potassium Chloride/Sodium Chloride 20 meq in 1,000 mls @ 75 mls/hr 06/13/17 13 :53 06/14/17 16:02 Ns+20 Meq Kcl - IV 75 mls/hr ASDIR [facility] Administration Insulin Aspart 1 vial 06/14/17 22:00 06/14/17 21:55 Novolog Vial Sliding Scale - SQ Not Given HS [facility] Protocol Insulin Aspart 1 vial 06/15/17 09:46 06/15/17 12:00 Novolog Vial Sliding Scale - SQ 11 units TIDAC [facility] Administration Protocol Insulin Detemir 12 units 06/15/17 09:45 06/15/17 11:23 Levemir Vial SQ Not Given AM [facility] Ketorolac Tromethamine 15 mg 06/15/17 14:33 06/15/17 15:47 Toradol Injection - IVPUSH 06/20/17 14:32 15 mg Q6H PRN Administration PAIN Metoclopramide HCl 10 mg 06/13/17 11:00 06/15/17 12:00 Reglan - PO 10 mg ACHS [facility] Administration Morphine Sulfate 30 mg 06/12/17 11:06 06/15/17 04:59 Msir - PO 30 mg Q6H PRN Administration PAIN SCALE 6-10 Nicotine 14 mg 06/13/17 13:30 06/15/17 09:41 Nicoderm Patch - TD 14 mg DAILY [facility] Administration Oxycodone/Acetaminophen 2 combo 06/12/17 11:05 06/12/17 20:43 Percocet 5/325 - PO 2 combo Q6H PRN Administration PAIN LEVEL 1-5 Pantoprazole Sodium 20 mg 06/15/17 10:00 06/15/17 09:41 Protonix - PO 20 mg DAILY [facility] Administration AP: DM: Uncontrolled Unclear reason for fluctuation with 60 predinner. Pt says she did eat lunch yesterday. Got Levemir 15 units today, changed to 12 starting tomorrow Novolog coverage changed Replace electrolytes as necessary Will f/u
[2017-06-16] MEDS: CEPHALEXIN MONOHYDRATE 500 MG CAPSULE (UD) PO SCH ×2 (00:03→06:21)
[2017-06-16] MEDS: KETOROLAC TROMETHAMINE 15 MG/ML VIAL IVPUSH PRN ×2 (04:10→10:13)
[2017-06-16] MEDS: morphine SULFATE IMMEDIATE RELEASE 30 MG TAB PO PRN ×2 (04:10→10:13)
[2017-06-16 06:01] VITALS: BP 131/86; PULSE 81; TEMP 98.4
[2017-06-16] MEDS: INSULIN DETEMIR 100 UNITS/ML MDV SQ SCH (06:21)
[2017-06-16] MEDS: DOCUSATE SODIUM 100 MG CAPSULE (FP) PO SCH (06:21)
[2017-06-16] MEDS: METOCLOPRAMIDE HCL 10 MG TABLET (FP) PO SCH ×2 (06:22→10:13)
[2017-06-16] MEDS: INSULIN SLIDING SCALE (NOVOLOG) 1 VIAL SQ SCH (06:22)
[2017-06-16 09:03] LABS: BASO % 0.4 % (0-2.0); EOS % 1.4 % (0-4.5); MCH 29.5 pg (25.7-33.7); MCHC 33.7 g/dl (32.0-36.0); MEAN CELL VOLUME 87.6 fl (80-96); MEAN PLT VOLUME 8.7 fl (7.5-11.1); NEUT % 49.1 % (42.8-82.8); PLATELET COUNT 355 K/MM3 (134-434); RDW 13.6 % (11.6-15.6); WHITE BLOOD COUNT 8.9 K/mm3 (4.0-10.8)
[2017-06-16] MEDS: NICOTINE 14 MG/24 HOURS TOPICAL PATCH TD SCH (09:13)
[2017-06-16] MEDS: PANTOPRAZOLE 20 MG TABLET (FP) PO SCH (09:13)
[2017-06-16] MEDS: ENOXAPARIN NA (PORCINE) 40 MG/0.4 ML DISP.SYRIN SQ SCH (09:13)
[2017-06-16 09:24] LABS: ANION GAP 12 (8-16); CALCIUM 9.3 mg/dl (8.4-10.2); CO2 22 mmol/L (22-28); CREATININE 0.7 mg/dl (0.6-1.3); GLUCOSE,RANDOM 257 mg/dl (74-106)
--- NOTE | 2017-06-16 10:06 | DS ---
Physical Exam: SUBJECTIVE: Patient seen and examined, patient reports feeling better, denies any abdominal pain, tolerating regular diet OBJECTIVE: patient is a 47 y/o woman with a PMHx of: IDDM (non- complaint), chronic back pain, gastroparesis. Who presents to the ED with nausea and vomiting x several days. Patient reports not taking her insulin or pain medication in 2-3 days. Patient denies fever, chills, cough, SOB, CP, AP, diarrhea, constipation, dysuria. Vital Signs Period Temp Pulse Resp BP Sys/Rapp Pulse Ox Last 24 Hr 98.4 F-98.7 F 77-81 20-21 131-151/84-86 100-100 PHYSICAL EXAM GENERAL: The patient is awake, alert, and fully oriented, in no acute distress. HEAD: Normal with no signs of trauma. EYES: PERRL, extraocular movements intact, sclera anicteric, conjunctiva clear. ENT: Ears normal, nares patent, oropharynx clear without exudates, moist mucous membranes. NECK: Trachea midline, full range of motion, supple. LUNGS: Breath sounds equal, clear to auscultation bilaterally, no wheezes, no crackles, no accessory muscle use. HEART: Regular rate and rhythm, S1, S2 without murmur, rub or gallop. ABDOMEN: Soft, nontender, nondistended, normoactive bowel sounds, no guarding, no rebound, no hepatosplenomegaly, no masses. EXTREMITIES: 2+ pulses, warm, well-perfused, no edema. NEUROLOGICAL: Cranial nerves II through XII grossly intact. Normal speech, gait not observed. PSYCH: Normal mood, normal affect. SKIN: Warm, dry, normal turgor, no rashes or lesions noted. LABS Laboratory Results - last 24 hr 06/15/17 06/15/17 06/15/17 11:55 17:03 22:12 WBC RBC Hgb Hct MCV MCH MCHC RDW Plt Count MPV Neutrophils % Lymphocytes % Monocytes % Eosinophils % Basophils % Sodium Potassium Chloride Carbon Dioxide Anion Gap BUN Creatinine POC Glucometer 358 158 148 Random Glucose Calcium 06/16/17 06/16/17 06/16/17 06:14 07:20 07:37 WBC 8.9 RBC 4.22 Hgb 12.4 Hct 36.9 MCV 87.6 MCH 29.5 MCHC 33.7 RDW 13.6 Plt Count 355 D MPV 8.7 Neutrophils % 49.1 D Lymphocytes % 43.9 H D Monocytes % 5.2 Eosinophils % 1.4 Basophils % 0.4 Sodium Potassium Chloride Carbon Dioxide Anion Gap BUN Creatinine POC Glucometer 371 281 Random Glucose Calcium 06/16/17 07:37 WBC RBC Hgb Hct MCV MCH MCHC RDW Plt Count MPV Neutrophils % Lymphocytes % Monocytes % Eosinophils % Basophils % Sodium 135 L Potassium 3.8 Chloride 101 Carbon Dioxide 22 Anion Gap 12 BUN 15 Creatinine 0.7 POC Glucometer Random Glucose 257 H D Calcium 9.3 Microbiology 06/11/17 19:27 Blood - Peripheral Venous Blood Culture - Preliminary NO GROWTH OBTAINED AFTER 96 HOURS, INCUBATION TO CONTINUE FOR 1 DAYS. 06/11/17 19:27 Blood - Peripheral Venous Blood Culture - Preliminary NO GROWTH OBTAINED AFTER 96 HOURS, INCUBATION TO CONTINUE FOR 1 DAYS. 06/13/17 13:00 Urine - Urine Clean Catch Urine Culture - Preliminary Presumptive Mssa (Pbp2a Neg) 10-20k HOSPITAL COURSE: Patient is 47 y/o female that was admitted from the emergency department for DKA that resolved. Patient was started on levermir with regular insulin sliding scale. Patient was evaluated by Dr. Luis, drier and pulverizer tender. fingersticks is better controlled. patient was noted to have 2. Diabetic gastroperesis started with achs. Leukocytosis resolved, Keflex for UTI, culture is positive 10-20k and patient was symptomatic reports suprapubic tenderness and increased frequency. Patient does have a past medical history of Chronic back pain, [facility] [employer] # [phone] verified home dose pain medication; re-start morphine ir 30mg q6h and percocet 10/325mg q4h. PLAN - discharge home with follow up to drier and pulverizer tender within 1 wee - return precautions reviewed Date of Admission:06/14/17 Date of Discharge: 06/16/17 Minutes to complete discharge: 45 Discharge Summary Reason For Visit: DIABETIC KETOACIDOSIS Current Active Problems DVT prophylaxis (Acute) Diabetic keto-acidosis (Acute) Condition: Improved - Instructions Diet, Activity, Other Instructions: continue taking reglan before meals continue levermir with the regular insulin sliding scale, please keep a log of your fingersticks please follow up the drier and pulverizer tender, Dr Tripp within 1 week if any new or persistent symptoms develop please return to the emergency department Referrals: Harriet Tripp MD [Primary Care Provider] - 1 Week Disposition: HOME - Home Medications Comprehensive Discharge Medication List: Ambulatory Orders Morphine Sulfate [Ms Contin] 30 mg PO QID 06/20/15 Oxycodone HCl/Acetaminophen [Percocet 10-325 mg Tablet] 1 - 2 tab PO BID Insulin Sliding Scale [Novolog Vial Sliding Scale -] See Protocol SQ AC 30 Days units 12/07/15 Insulin Glargine,Hum.rec.anlog [Lantus Solostar PEN (NF)] 12 units SQ HS This patient is new to me today: No Emergency Visit: Yes ED Registration Date: 06/14/17 Care time: The patient presented to the Emergency Department on the above date and was hospitalized for further evaluation of their emergent condition. Critical Care patient: No - Discharge Referral Referred to [facility] No
== END 2017-06-16 11:20 | disposition home or self-care (01) | DRG 638 ==
LOC: FER 15:58 → FM/S 20:16 → OBSVTOIN 06-14 10:53
PROVIDERS: ADMIT Internal Medicine; ATTEND Nurse Practitioner Family
DX: E10.10 Type 1 diabetes mellitus with ketoacidosis without coma (principal); N39.0 Urinary tract infection, site not specified; Z79.4 Long term (current) use of insulin; D72.829 Elevated white blood cell count, unspecified; G89.29 Other chronic pain; K31.84 Gastroparesis; K31.89 Other diseases of stomach and duodenum; E10.43 Type 1 diabetes mellitus with diabetic autonomic (poly)neuropathy; F17.210 Nicotine dependence, cigarettes, uncomplicated; M54.5 Low back pain
CPT/HCPCS: 36415; 71010-TC; 80048; 80053; 81003; 81015; 82009; 83036; 83605; 83735; 84100; 84436; 84443; 84703; 85025; 87040; 87086; 87186; 93005; 99282-25; G0378

== ENCOUNTER 2017-08-07 05:04 | Inpatient (IN) | payer OTHER ==
--- NOTE | 2017-08-07 05:08 | PDOC ---
History of Present Illness - General Stated Complaint: DKA - History of Present Illness Initial Comments: This 47-year-old woman with a history of Type 1 insulin-dependent diabetes mellitus, poor compliance with medications and frequent DKA presents with history of recent acute febrile illness ("the flu") during which she had frequent vomiting and diarrhea. She states that she feels that she now has DKA. She denies chest pain/shortness of breath/abdominal pain. Patient has a long history of chronic back pain, taking large amounts of narcotics by mouth. She states that because of vomiting in recent days, she was unable to take her pain medications and her lower back pain is severe. Last vomiting episode was an hour prior to presentation; she states this was dark but did not contain shankar blood. She also had loose stools during the night. Past History - Past Medical History Allergies/Adverse Reactions: Allergies Allergy/AdvReac Type Severity Reaction Status Date / Time No Known Allergies Allergy Verified 06/11/17 18:21 Home Medications: Ambulatory Orders Oxycodone HCl/Acetaminophen [Percocet 10-325 mg Tablet] 1 - 2 tab PO QID Insulin Sliding Scale [Novolog Vial Sliding Scale -] See Protocol SQ AC 30 Days units 12/07/15 Insulin Glargine,Hum.rec.anlog [Lantus Solostar PEN -] 10 units SQ HS 06/11/17 Ketorolac Tromethamine [Toradol] 10 mg PO Q6H PRN #20 tablet 06/16/17 Pantoprazole Sodium [Protonix -] 20 mg PO DAILY #30 tablet.ec 06/16/17 Atorvastatin Ca [Lipitor] 10 mg PO HS 08/07/17 Morphine *Immediate Release* [Msir -] 2 tab PO QID 08/07/17 COPD: No Diabetes: Yes (TYPE I, DKA) GI Disorders: Yes (GASTROPARESIS) - Surgical History Cholecystectomy: Yes (AGE 19) - Immunization History Td Vaccination: Yes Immunization Up to Date: Yes - Suicide/Smoking/Psychosocial Hx Smoking Status: Yes Smoking History: Current every day smoker Years of Tobacco Use: 15 Have you smoked in the past 12 months: Yes Number of Cigarettes Smoked Daily: 25 'Breaking Loose' booklet given: 06/11/17 Hx Alcohol Use: No Drug/Substance Use Hx: No Substance Use Type: None Hx Substance Use Treatment: No Review of Systems - Review of Systems Able to Perform ROS?: Yes Comments:: 12 point review of systems is negative except for what is noted in the history of present illness *Physical Exam - Physical Exam Comments: GENERAL: Adult female, alert and oriented 3, speaking in full sentences and in no acute distress HEAD: Normal with no signs of trauma. EYES: PERRLA, EOMI, sclera anicteric, conjunctiva clear. ENT: Ears normal, nares patent, oropharynx clear without exudates. Dry mucous membranes. NECK: Normal range of motion, supple without lymphadenopathy, JVD, or masses. LUNGS: Breath sounds equal, clear to auscultation bilaterally. No wheezes, and no crackles. HEART:Regular rate and rhythm, normal S1 and S2 without murmur, rub or gallop. ABDOMEN:.normal bowel sounds No guarding,tenderness or rebound.No masses No distention. EXTREMITIES: Normal range of motion, no edema. No clubbing or cyanosis. No erythema, or tenderness. NEUROLOGICAL: Cranial nerves II through XII grossly intact. Normal speech. No focal neurological deficits. SKIN: Warm, Dry, normal turgor, no rashes or lesions noted. ED Treatment Course - LABORATORY CBC & Chemistry Diagram: 08/09/17 06:15 08/08/17 16:00 Medical Decision Making - Medical Decision Making 08/07/17 06:49 This 47-year-old woman with type I DM and frequent episodes of DKA presents with recent acute febrile illness with nausea/vomiting/diarrhea. Patient is currently nauseated and feels that she is currently in DKA. Exam reveals dry mucous membranes; lungs are clear and she has no abdominal tenderness Fingerstick glucose is "out of scale" Patient currently receiving 1 L normal saline IV. CBC/lactate/chemistry profile has been drawn but samples were unable to be transported to [facility] laboratory because transport vehicle is out of service. Therefore, lab work will be performed here when lab opens at 7AM 08/07/17 07:05 Zofran 4 mg IV administered for patient's nausea Patient states that because of her persistent vomiting, she was unable to take her MS Contin/Percocet that she takes on a daily basis for her chronic lower back pain. Therefore, she is in severe pain. Patient states that the "only" medication that works for her is 2mg Dilaudid IV. Patient given 2 mg Dilaudid IVPB. Case signed out to incoming physician at end of shift. *DC/Admit/Observation/Transfer Diagnosis at time of Disposition: Hypokalemia, Hyponatremia DKA (diabetic ketoacidoses) Qualifiers: Diabetes mellitus type: type 1 Diabetes mellitus complication detail: without coma Qualified Code(s): E10.10 - Type 1 diabetes mellitus with ketoacidosis without coma - Discharge Dispostion Condition at time of disposition: Stable - Referrals - Patient Instructions - Post Discharge Activity
[2017-08-07] MEDS ORDERED: HYDROmorphone HCL CARPU-JECT 2 MG/1 ML DISP.SYRIN IVPB ONE (06:35)
[2017-08-07] MEDS ORDERED: SODIUM CHLORIDE 1,000 ML IV STA ×3 (06:35→11:40)
[2017-08-07] MEDS ORDERED: ONDANSETRON 4 MG/2 ML VIAL IVPUSH ONE ×3 (06:37→14:26)
[2017-08-07] MEDS ORDERED: HYDROmorphone HCL CARPU-JECT 2 MG/1 ML DISP.SYRIN ONE (06:42)
[2017-08-07] MEDS ORDERED: ONDANSETRON 4 MG/2 ML VIAL ONE ×3 (06:42→14:28)
[2017-08-07 06:54] LABS: HEMATOCRIT 44.9 % (32.4-45.2); HEMOGLOBIN 14.8 GM/dL (10.7-15.3); MCH 28.4 pg (25.7-33.7); MCHC 32.9 g/dl (32.0-36.0); MEAN CELL VOLUME 86.6 fl (80-96); MEAN PLT VOLUME 9.5 fl (7.5-11.1); PLATELET COUNT 476 K/MM3 (134-434); RBC 5.19 M/mm3 (3.60-5.2); RDW 14.6 % (11.6-15.6); WHITE BLOOD COUNT 29.7 K/mm3 (4.0-10.0)
--- NOTE | 2017-08-07 07:27 | PDOC ---
*Physical Exam - Vital Signs Last Vital Signs Temp Pulse Resp BP Pulse Ox 98.1 F 111 H 18 139/85 99 08/07/17 05:10 08/07/17 05:10 08/07/17 05:10 08/07/17 05:10 08/07/17 05:10 - Physical Exam General Appearance: Yes: Appropriately Dressed, Mild Distress HEENT: positive: EOMI, UMA, Normal ENT Inspection Neck: positive: Trachea midline, Normal Thyroid, Supple. negative: Tender, Rigid, Carotid bruit Respiratory/Chest: positive: Lungs Clear, Normal Breath Sounds. negative: Chest Tender, Respiratory Distress Cardiovascular: positive: Regular Rhythm, Regular Rate, S1, S2. negative: Edema , JVD, Murmur Vascular Pulses: Femoral (R): 4+, Femoral (L): 4+, Carotid (R): 4+, Carotid (L) : 4+, Dorsalis-Pedis (R): 4+, Doralis-Pedis (L): 4+ Gastrointestinal/Abdominal: positive: Normal Bowel Sounds, Flat, Soft. negative : Tender, Organomegaly, Pulsatile Mass Lymphatic: negative: Adenopathy, Tenderness, Other Musculoskeletal: positive: Normal Inspection. negative: CVA Tenderness Extremity: positive: Normal Capillary Refill, Normal Inspection, Normal Range of Motion. negative: Tender Integumentary: positive: Normal Color, Dry, Warm Neurologic: positive: negotiations director II-XII NML intact, Fully Oriented, Alert, Normal Mood/ Affect, Normal Response, Motor Strength 5/5 ED Treatment Course - LABORATORY CBC & Chemistry Diagram: 08/07/17 06:00 08/07/17 08:20 - ADDITIONAL ORDERS Additional order review: Laboratory Results 08/07/17 06:17 Sodium Cancelled Potassium Cancelled Chloride Cancelled Carbon Dioxide Cancelled Anion Gap Cancelled BUN Cancelled Creatinine Cancelled Creat Clearance w eGFR Cancelled Random Glucose Cancelled Calcium Cancelled Total Bilirubin Cancelled AST Cancelled ALT Cancelled Alkaline Phosphatase Cancelled Total Protein Cancelled Albumin Cancelled 08/07/17 06:00 RBC 5.19 D MCV 86.6 MCHC 32.9 RDW 14.6 MPV 9.5 D - Medications Given in the ED: ED Medications Discontinued Medications Generic Name Dose Route Start Last Admin Trade Name Freq PRN Reason Stop Dose Admin Hydromorphone HCl 2 mg 08/07/17 06:35 08/07/17 06:45 Dilaudid Injection - IVPB 08/07/17 06:36 2 mg ONCE ONE Administration Ondansetron HCl 4 mg 08/07/17 06:37 08/07/17 06:45 Zofran Injection IVPUSH 08/07/17 06:38 4 mg ONCE ONE Administration Progress Note - Progress Note Progress Note: 47 y/o female with insulin dependant diabetes presents to ER in DKA. Initially seen by Dr. Johnston, given fluids and pain meds. Patient states she had the stomach virus and was vomiting and having diarrhea which caused her to go into DKA. Patient has a hx of DKA, multiple times. Denies SOB, chest pain, fever or chills. Feels weak and tired. Glucose 479. Pt refusing potassium at this time. Spoke with Dr. Heard at [phone], will admit. Further orders as per attending physician *DC/Admit/Observation/Transfer Diagnosis at time of Disposition: Hypokalemia, Hyponatremia DKA (diabetic ketoacidoses) Qualifiers: Diabetes mellitus type: type 1 Diabetes mellitus complication detail: without coma Qualified Code(s): E10.10 - Type 1 diabetes mellitus with ketoacidosis without coma - Discharge Dispostion Condition at time of disposition: Stable Admit: Yes - Referrals Referrals: Pa Heard MD [Primary Care Provider] - - Patient Instructions - Post Discharge Activity
[2017-08-07] MEDS ORDERED: HEMOQUE TEST 1 EACH EACH ONE ×8 (08:28→21:37)
[2017-08-07] MEDS ORDERED: INSULIN REGULAR HUMAN 100 UNITS/ML *VIAL IVPUSH ONE ×2 (08:32→12:46)
[2017-08-07] MEDS ORDERED: INSULIN REGULAR HUMAN 100 UNITS/ML *VIAL ONE ×5 (08:32→18:52)
[2017-08-07] MEDS ORDERED: HYDROmorphone HCL CARPU-JECT 1 MG/1 ML DISP.SYRIN IVPUSH ONE ×4 (09:03→18:24)
[2017-08-07] MEDS ORDERED: HYDROmorphone HCL CARPU-JECT 1 MG/1 ML DISP.SYRIN ONE ×4 (09:11→18:27)
[2017-08-07 09:28] LABS: ALBUMIN 3.6 g/dl (3.5-5.0); ALK PHOS 87 U/L (32-92); ANION GAP 18 (8-16); BILIRUBIN,TOTAL 1.5 mg/dl (0.2-1.0); BLOOD UREA NITROGEN 44 mg/dl (7-18); CALCIUM 8.5 mg/dl (8.4-10.2); CHLORIDE 93 mmol/L (98-107); CO2 16 mmol/L (22-28); CREATININE 1.6 mg/dl (0.6-1.3); POTASSIUM 3.1 mmol/L (3.5-5.1); SGOT/AST 14 U/L (10-42); SGPT/ALT 13 U/L (10-40); SODIUM 127 mmol/L (136-145); TOT PROT 6.9 g/dl (6.4-8.3)
[2017-08-07 09:49] LABS: GLUCOSE,RANDOM 479 mg/dl (74-106)
[2017-08-07] MEDS ORDERED: POTASSIUM CHLORIDE TABS 20 MEQ TABLET.ER (FP) PO ONE ×5 (09:54→20:55)
[2017-08-07 12:41] LABS: ANION GAP 18 (8-16); BLOOD UREA NITROGEN 39 mg/dl (7-18); CALCIUM 8.1 mg/dl (8.4-10.2); CHLORIDE 94 mmol/L (98-107); CO2 12 mmol/L (22-28); CREATININE 1.3 mg/dl (0.6-1.3); POTASSIUM 3.9 mmol/L (3.5-5.1)
[2017-08-07 12:44] LABS: GLUCOSE,RANDOM 547 mg/dl (74-106); SODIUM 124 mmol/L (136-145)
[2017-08-07] MEDS ORDERED: INSULIN REGULAR 100 UNITS in SODIUM CHLORIDE 99 ML IVPB SCH (13:30)
--- NOTE | 2017-08-07 16:52 | EKG ---
Test Reason : Blood Pressure : / mmHG Vent. Rate : 098 BPM Atrial Rate : 098 BPM P-R Int : 120 ms QRS Dur : 094 ms QT Int : 344 ms P-R-T Axes : 076 080 -05 degrees QTc Int : 439 ms NORMAL SINUS RHYTHM POSSIBLE LEFT ATRIAL ENLARGEMENT NONSPECIFIC ST AND T WAVE ABNORMALITY WHEN COMPARED WITH ECG OF 11-JUN-2017 18:09, NO SIGNIFICANT CHANGE WAS FOUND Confirmed by MD FILI, YANELI ([id number]) on 08/07/2017 4:52:27 PM Referred By: TONY CODY Confirmed By:YANELI PENN MD
[2017-08-07 17:18] LABS: ANION GAP 21 (8-16); BLOOD UREA NITROGEN 36 mg/dl (7-18); CALCIUM 8.2 mg/dl (8.4-10.2); CHLORIDE 96 mmol/L (98-107); CO2 8 mmol/L (22-28); CREATININE 1.4 mg/dl (0.6-1.3); SODIUM 125 mmol/L (136-145)
[2017-08-07 17:21] LABS: GLUCOSE,RANDOM 552 mg/dl (74-106)
[2017-08-07] MEDS ORDERED: KETOROLAC TROMETHAMINE 30 MG/1 ML VIAL IVPUSH ONE (17:36)
[2017-08-07] MEDS ORDERED: KETOROLAC TROMETHAMINE 30 MG/1 ML VIAL ONE (17:38)
[2017-08-07 20:24] LABS: HEMATOCRIT 38.3 % (32.4-45.2); HEMOGLOBIN 12.9 GM/dl (10.7-15.3); MCH 29.2 pg (25.7-33.7); MCHC 33.7 g/dl (32.0-36.0); MEAN CELL VOLUME 86.7 fl (80-96); MEAN PLT VOLUME 9.1 fl (7.5-11.1); PLATELET COUNT 406 K/MM3 (134-434); RBC 4.42 M/mm3 (3.60-5.2); RDW 13.7 % (11.6-15.6)
[2017-08-07 20:27] LABS: ANION GAP 20 (8-16); BLOOD UREA NITROGEN 33 mg/dl (7-18); CALCIUM 8.2 mg/dl (8.4-10.2); CHLORIDE 104 mmol/L (98-107); CO2 6 mmol/L (22-28); CREATININE 1.5 mg/dl (0.6-1.3); PHOSPHOROUS 1.2 mg/dl (2.5-4.6); SODIUM 130 mmol/L (136-145)
[2017-08-07 20:33] LABS: GLUCOSE,RANDOM 368 mg/dl (74-106)
[2017-08-07 20:34] LABS: WHITE BLOOD COUNT 31.8 K/mm3 (4.0-10.8)
--- NOTE | 2017-08-07 20:37 | HP ---
Admitting History and Physical - Primary Care Physician PCP: Pa Heard - Admission Chief Complaint: Vomiting, Diarrhea, Back Pain History of Present Illness: This is a 47 y/o woman with a past medical history of IDDM (non-compliance), Gastroparesis, Chronic Back Pain. Who presents to the ED c/o excessive vomiting and loose stools. Patient also reports severe back pain which she could not take her po pain meds, secondary to vomiting. Patient denies fever, chills, cough, SOB, CP, constipation, dysuria. History Source: Patient Limitations to Obtaining History: Clinical Condition, Poor Historian - Past Medical History HARD CANDY B[employer]IX[employer]: Yes: Migraine Gastrointestinal: Yes: Other (Gastroparesis) ...LMP: 04/14/13 Musculoskeletal: Yes: Chronic low back pain Endocrine: Yes: Diabetes Mellitus - Past Surgical History Past Surgical History: Yes: Cholecystectomy - Smoking History Smoking history: Current every day smoker Have you smoked in the past 12 months: Yes Aproximately how many cigarettes per day: 25 - Alcohol/Substance Use Hx Alcohol Use: No History of Substance Use: reports: None - Social History Usual Living Arrangement: Yes: Alone ADL: Independent History of Recent Travel: No Home Medications - Allergies Allergies/Adverse Reactions: Allergies Allergy/AdvReac Type Severity Reaction Status Date / Time No Known Allergies Allergy Verified 06/11/17 18:21 - Home Medications Home Medications: Ambulatory Orders Oxycodone HCl/Acetaminophen [Percocet 10-325 mg Tablet] 1 - 2 tab PO QID Insulin Sliding Scale [Novolog Vial Sliding Scale -] See Protocol SQ AC 30 Days units 12/07/15 Insulin Glargine,Hum.rec.anlog [Lantus Solostar PEN -] 10 units SQ HS 06/11/17 Ketorolac Tromethamine [Toradol] 10 mg PO Q6H PRN #20 tablet 06/16/17 Pantoprazole Sodium [Protonix -] 20 mg PO DAILY #30 tablet.ec 06/16/17 Atorvastatin Ca [Lipitor] 10 mg PO HS 08/07/17 Morphine *Immediate Release* [Msir -] 2 tab PO QID 08/07/17 Family Disease History - Family Disease History Family History: Unable to Obtain Review of Systems - Review of Systems Constitutional: reports: Loss of Appetite Eyes: reports: No Symptoms HENT: reports: No Symptoms Neck: reports: No Symptoms Cardiovascular: reports: No Symptoms Respiratory: reports: No Symptoms Gastrointestinal: reports: Abdominal Pain, Diarrhea, Nausea, Vomiting Genitourinary: reports: No Symptoms Breasts: reports: No Symptoms Reported Musculoskeletal: reports: Back Pain Integumentary: reports: No Symptoms Neurological: reports: No Symptoms Endocrine: reports: No Symptoms Hematology/Lymphatic: reports: No Symptoms Psychiatric: reports: No Symptoms Pain Intensity: 8 Physical Examination Vital Signs: Vital Signs Temperature 98.5 F 08/07/17 19:30 Pulse Rate 109 H 08/07/17 19:30 Respiratory Rate 24 08/07/17 19:30 Blood Pressure 163/74 08/07/17 19:30 O2 Sat by Pulse Oximetry (%) 100 08/07/17 19:30 Constitutional: Yes: Anxious, Mild Distress, Thin Eyes: Yes: WNL, Conjunctiva Clear, EOM Intact, PERRL HENT: Yes: WNL, Atraumatic, Normocephalic Neck: Yes: WNL, Supple, Trachea Midline Cardiovascular: Yes: Tachycardia, S1, S2 Respiratory: Yes: WNL, Regular, CTA Bilaterally Gastrointestinal: Yes: WNL, Normal Bowel Sounds, Tenderness (generalized) ...Rectal Exam: Yes: Deferred Renal/: Yes: WNL Breast(s): Yes: WNL Musculoskeletal: Yes: Back Pain Extremities: Yes: WNL Edema: No Peripheral Pulses WNL: Yes Integumentary: Yes: Body Piercing (navel) Neurological: Yes: WNL, Alert, Oriented, Cran Nerves II-XII Intact ...Motor Strength: WNL Psychiatric: Yes: WNL, Alert, Oriented Labs: CBC, BMP 08/07/17 19:45 08/07/17 19:45 Laboratory Results - last 24 hr 08/07/17 08/07/17 08/07/17 05:16 06:00 06:00 WBC 29.7 H D RBC 5.19 D Hgb 14.8 D Hct 44.9 D MCV 86.6 MCH 28.4 MCHC 32.9 RDW 14.6 Plt Count 476 H D MPV 9.5 D Total Counted Cancelled Neutrophils % Neutrophils % (Manual) Cancelled Band Neutrophils % Cancelled Lymphocytes % Lymphocytes % (Manual) Cancelled Monocytes % (Manual) Cancelled Eosinophils % (Manual) Cancelled Basophils % (Manual) Cancelled Myelocytes % (Man) Cancelled Promyelocytes % (Man) Cancelled Blast Cells % (Manual) Cancelled Nucleated RBC % Cancelled Metamyelocytes Cancelled Differential Comment Cancelled Hypersegmented Neuts Cancelled Plasma Cells Cancelled Smudge Cells Cancelled Other Cell Type Cancelled Hypochromia Cancelled Toxic Granulation Cancelled Dohle Bodies Cancelled Platelet Estimate Cancelled Platelet Comment Polychromasia Cancelled Poikilocytosis Cancelled Basophilic Stippling Cancelled Anisocytosis Cancelled Microcytosis Cancelled Macrocytosis Cancelled Spherocytes Cancelled Siderocytes Cancelled Sickle Cells Cancelled Target Cells Cancelled Tear Drop Cells Cancelled Ovalocytes Cancelled Stomatocytes Cancelled Helmet Cells Cancelled Fin[place] Bodies Cancelled Boyd Rings Cancelled Maxwell Cells Cancelled Acanthocytes (Spur) Cancelled Rouleaux Cancelled Fragmented RBCs Cancelled Schistocytes Cancelled Anticoagulation Therapy Puncture Site ABG pH ABG pCO2 at Pt Temp ABG pO2 at Pt Temp ABG HCO3 ABG O2 Sat (Measured) ABG O2 Content ABG Base Excess Atul Test O2 Delivery Device Oxygen Flow Rate Vent Mode Vent Rate Mechanical Rate Pressure Support Vent Sodium Potassium Chloride Carbon Dioxide Anion Gap BUN Creatinine Creat Clearance w eGFR POC Glucometer > 400 Random Glucose Lactic Acid 1.3 Calcium Phosphorus Magnesium Total Bilirubin AST ALT Alkaline Phosphatase Total Protein Albumin Acetone, Qual 08/07/17 08/07/17 08/07/17 06:17 07:40 08:20 WBC RBC Hgb Hct MCV MCH MCHC RDW Plt Count MPV Total Counted Neutrophils % Neutrophils % (Manual) Band Neutrophils % Lymphocytes % Lymphocytes % (Manual) Monocytes % (Manual) Eosinophils % (Manual) Basophils % (Manual) Myelocytes % (Man) Promyelocytes % (Man) Blast Cells % (Manual) Nucleated RBC % Metamyelocytes Differential Comment Hypersegmented Neuts Plasma Cells Smudge Cells Other Cell Type Hypochromia Toxic Granulation Dohle Bodies Platelet Estimate Platelet Comment Polychromasia Poikilocytosis Basophilic Stippling Anisocytosis Microcytosis Macrocytosis Spherocytes Siderocytes Sickle Cells Target Cells Tear Drop Cells Ovalocytes Stomatocytes Helmet Cells Fin[place] Bodies Boyd Rings Jose Antonio Cells Acanthocytes (Spur) Rouleaux Fragmented RBCs Schistocytes Anticoagulation Therapy Puncture Site ABG pH ABG pCO2 at Pt Temp ABG pO2 at Pt Temp ABG HCO3 ABG O2 Sat (Measured) ABG O2 Content ABG Base Excess Atul Test O2 Delivery Device Oxygen Flow Rate Vent Mode Vent Rate Mechanical Rate Pressure Support Vent Sodium Cancelled Cancelled 127 L Potassium Cancelled Cancelled 3.1 L Chloride Cancelled Cancelled 93 L Carbon Dioxide Cancelled Cancelled 16 L D Anion Gap Cancelled Cancelled 18 H BUN Cancelled Cancelled 44 H D Creatinine Cancelled Cancelled 1.6 H D Creat Clearance w eGFR Cancelled Cancelled 34.40 POC Glucometer Random Glucose Cancelled Cancelled 479 H* D Lactic Acid Calcium Cancelled Cancelled 8.5 Phosphorus Magnesium Total Bilirubin Cancelled Cancelled 1.5 H D AST Cancelled Cancelled 14 D ALT Cancelled Cancelled 13 D Alkaline Phosphatase Cancelled Cancelled 87 Total Protein Cancelled Cancelled 6.9 Albumin Cancelled Cancelled 3.6 Acetone, Qual 08/07/17 08/07/17 08/07/17 08:31 09:45 12:20 WBC RBC Hgb Hct MCV MCH MCHC RDW Plt Count MPV Total Counted Neutrophils % Neutrophils % (Manual) Band Neutrophils % Lymphocytes % Lymphocytes % (Manual) Monocytes % (Manual) Eosinophils % (Manual) Basophils % (Manual) Myelocytes % (Man) Promyelocytes % (Man) Blast Cells % (Manual) Nucleated RBC % Metamyelocytes Differential Comment Hypersegmented Neuts Plasma Cells Smudge Cells Other Cell Type Hypochromia Toxic Granulation Dohle Bodies Platelet Estimate Platelet Comment Polychromasia Poikilocytosis Basophilic Stippling Anisocytosis Microcytosis Macrocytosis Spherocytes Siderocytes Sickle Cells Target Cells Tear Drop Cells Ovalocytes Stomatocytes Helmet Cells Finley-[place] Bodies Boyd Rings Maxwell Cells Acanthocytes (Spur) Rouleaux Fragmented RBCs Schistocytes Anticoagulation Therapy Puncture Site ABG pH ABG pCO2 at Pt Temp ABG pO2 at Pt Temp ABG HCO3 ABG O2 Sat (Measured) ABG O2 Content ABG Base Excess Atul Test O2 Delivery Device Oxygen Flow Rate Vent Mode Vent Rate Mechanical Rate Pressure Support Vent Sodium 124 L* Potassium 3.9 D Chloride 94 L Carbon Dioxide 12 L D Anion Gap 18 H BUN 39 H Creatinine 1.3 Creat Clearance w eGFR POC Glucometer > 400 Random Glucose 547 H* Lactic Acid Calcium 8.1 L Phosphorus Magnesium Total Bilirubin AST ALT Alkaline Phosphatase Total Protein Albumin Acetone, Qual Positive small 1+ H 08/07/17 08/07/17 08/07/17 16:25 19:45 19:45 WBC 31.8 H* D RBC 4.42 Hgb 12.9 Hct 38.3 MCV 86.7 MCH 29.2 MCHC 33.7 RDW 13.7 Plt Count 406 MPV 9.1 Total Counted Neutrophils % No Result Required. Neutrophils % (Manual) 93.0 H* Band Neutrophils % 3.0 Lymphocytes % No Result Required. Lymphocytes % (Manual) 3.0 L Monocytes % (Manual) 1 L Eosinophils % (Manual) Basophils % (Manual) Myelocytes % (Man) Promyelocytes % (Man) Blast Cells % (Manual) Nucleated RBC % Metamyelocytes Differential Comment Hypersegmented Neuts Plasma Cells Smudge Cells Other Cell Type Hypochromia Toxic Granulation Dohle Bodies Platelet Estimate Adequate Platelet Comment Few large platelets Polychromasia Poikilocytosis Basophilic Stippling Anisocytosis Microcytosis Macrocytosis Spherocytes Siderocytes Sickle Cells Target Cells Tear Drop Cells Ovalocytes Stomatocytes Helmet Cells Finley-[place] Bodies Boyd Rings Maxwell Cells Acanthocytes (Spur) Rouleaux Fragmented RBCs Schistocytes Anticoagulation Therapy No Result Required. Puncture Site No Result Required. ABG pH 7.25 L ABG pCO2 at Pt Temp 13.5 L* D ABG pO2 at Pt Temp 164.0 H* ABG HCO3 5.7 L* ABG O2 Sat (Measured) 98.6 ABG O2 Content 17.1 ABG Base Excess -20.3 L* Atul Test Positive O2 Delivery Device No Result Required. Oxygen Flow Rate No Result Required. Vent Mode No Result Required. Vent Rate No Result Required. Mechanical Rate No Result Required. Pressure Support Vent No Result Required. Sodium 125 L Potassium 4.0 Chloride 96 L Carbon Dioxide 8 L D Anion Gap 21 H BUN 36 H Creatinine 1.4 H Creat Clearance w eGFR POC Glucometer Random Glucose 552 H* Lactic Acid Calcium 8.2 L Phosphorus Magnesium Total Bilirubin AST ALT Alkaline Phosphatase Total Protein Albumin Acetone, Qual 08/07/17 08/07/17 08/07/17 19:45 19:45 20:37 WBC RBC Hgb Hct MCV MCH MCHC RDW Plt Count MPV Total Counted Neutrophils % Neutrophils % (Manual) Band Neutrophils % Lymphocytes % Lymphocytes % (Manual) Monocytes % (Manual) Eosinophils % (Manual) Basophils % (Manual) Myelocytes % (Man) Promyelocytes % (Man) Blast Cells % (Manual) Nucleated RBC % Metamyelocytes Differential Comment Hypersegmented Neuts Plasma Cells Smudge Cells Other Cell Type Hypochromia Toxic Granulation Dohle Bodies Platelet Estimate Platelet Comment Polychromasia Poikilocytosis Basophilic Stippling Anisocytosis Microcytosis Macrocytosis Spherocytes Siderocytes Sickle Cells Target Cells Tear Drop Cells Ovalocytes Stomatocytes Helmet Cells Fin[place] Bodies Boyd Rings Maxwell Cells Acanthocytes (Spur) Rouleaux Fragmented RBCs Schistocytes Anticoagulation Therapy Puncture Site ABG pH ABG pCO2 at Pt Temp ABG pO2 at Pt Temp ABG HCO3 ABG O2 Sat (Measured) ABG O2 Content ABG Base Excess Atul Test O2 Delivery Device Oxygen Flow Rate Vent Mode Vent Rate Mechanical Rate Pressure Support Vent Sodium 130 L Potassium 3.0 L D Chloride 104 Carbon Dioxide 6 L D Anion Gap 20 H BUN 33 H Creatinine 1.5 H Creat Clearance w eGFR POC Glucometer [phone] Random Glucose 368 H* D Lactic Acid 1.2 Calcium 8.2 L Phosphorus 1.2 L D Magnesium 2.0 Total Bilirubin AST ALT Alkaline Phosphatase Total Protein Albumin Acetone, Qual 08/07/17 21:41 WBC RBC Hgb Hct MCV MCH MCHC RDW Plt Count MPV Total Counted Neutrophils % Neutrophils % (Manual) Band Neutrophils % Lymphocytes % Lymphocytes % (Manual) Monocytes % (Manual) Eosinophils % (Manual) Basophils % (Manual) Myelocytes % (Man) Promyelocytes % (Man) Blast Cells % (Manual) Nucleated RBC % Metamyelocytes Differential Comment Hypersegmented Neuts Plasma Cells Smudge Cells Other Cell Type Hypochromia Toxic Granulation Dohle Bodies Platelet Estimate Platelet Comment Polychromasia Poikilocytosis Basophilic Stippling Anisocytosis Microcytosis Macrocytosis Spherocytes Siderocytes Sickle Cells Target Cells Tear Drop Cells Ovalocytes Stomatocytes Helmet Cells Finley-[place] Bodies Boyd Rings Jose Antonio Cells Acanthocytes (Spur) Rouleaux Fragmented RBCs Schistocytes Anticoagulation Therapy Puncture Site ABG pH ABG pCO2 at Pt Temp ABG pO2 at Pt Temp ABG HCO3 ABG O2 Sat (Measured) ABG O2 Content ABG Base Excess Atul Test O2 Delivery Device Oxygen Flow Rate Vent Mode Vent Rate Mechanical Rate Pressure Support Vent Sodium Potassium Chloride Carbon Dioxide Anion Gap BUN Creatinine Creat Clearance w eGFR POC Glucometer 169.30724 Random Glucose Lactic Acid Calcium Phosphorus Magnesium Total Bilirubin AST ALT Alkaline Phosphatase Total Protein Albumin Acetone, Qual Intake & Output 08/04/17 08/05/17 08/06/17 08/07/17 23:59 23:59 23:59 23:59 Intake Total 3975 Output Total 1300 Balance 2675 Weight 61.235 kg Current Medications Generic Name Dose Route Start Last Admin Trade Name Freq PRN Reason Stop Dose Admin Chlorhexidine Gluconate 1 applic 08/07/17 22:00 Hibiclens For Decolonization - TP HS [facility] Insulin Human Regular 100 100 mls @ 3 mls/hr 08/07/17 13:30 08/07/17 21:35 units/ Sodium Chloride IVPB 1.5 units/hr TITR [facility] 1.5 mls/hr Protocol Titration 3 UNITS/HR Dextrose/Sodium Chloride 1,000 mls @ 83 mls/hr 08/07/17 21:45 08/07/17 21:48 D5-1/2ns - IV 83 mls/hr ASDIR [facility] Administration Mupirocin 1 applic 08/07/17 22:00 Bactroban Ointment (For Decolonization) - NS 08/12/17 21:59 BID [facility] Ondansetron HCl 4 mg 08/07/17 20:38 Zofran Injection IVPUSH Q6H PRN NAUSEA AND/OR VOMITING Imaging - Results Chest X-ray: Pending EKG: Image Reviewed Problem List - Problems (1) Diabetic keto-acidosis Code(s): E13.10 - OTH DIABETES MELLITUS WITH KETOACIDOSIS WITHOUT COMA Qualifiers: Diabetes mellitus type: type 1 Diabetes mellitus complication detail: without coma Qualified Code(s): E10.10 - Type 1 diabetes mellitus with ketoacidosis without coma (2) Diabetic gastroparesis associated with type 1 diabetes mellitus Code(s): E10.43 - TYPE 1 DIABETES W DIABETIC AUTONOMIC (POLY)NEUROPATHY; K31.84 - GASTROPARESIS (3) Vomiting Code(s): R11.10 - VOMITING, UNSPECIFIED (4) Hypokalemia Code(s): E87.6 - HYPOKALEMIA (5) Diarrhea Code(s): R19.7 - DIARRHEA, UNSPECIFIED (6) Hypophosphatemia Code(s): E83.39 - OTHER DISORDERS OF PHOSPHORUS METABOLISM (7) Chronic pain Code(s): G89.29 - OTHER CHRONIC PAIN (8) Abdominal pain Code(s): R10.9 - UNSPECIFIED ABDOMINAL PAIN (9) DVT prophylaxis Code(s): [id number] - Assessment/Plan This is a 47 y/o woman with a past medical history of IDDM (non complaint), Gastroparesis, Chronic Back Pain. Admitted to ICU for DKA Plan: 1. DKA - Admit to ICU - Continue Insulin Drip until AG closes, serum glucose < 250mg/dl, then D51/2NS with KCL - Keep NPO - Serial BMPs - Replete lytes as needed - Continue cardiac monitoring - BGMs Q1H until FS < 200, then adjust accordingly - Resume Levemir when patient is able to tolerate food - Patient would benefit from Endocrinology f/u in outpatient setting 2. Gastroparesis - IVF - Antiemetics - Monitor BMP 3. Hypokalemia - See Above 4. Leukocytosis - Infectious vs Inflammatory vs Malignancy - Blood Cultures-pending - Lactic Acid 1.3~1.2, will recheck this am - Zosyn started in ICU - Appreciate ID Consult - Monitor CBC 5. Chronic Back Pain - Given Dilaudid in ED - Dilaudid IV with close monitoring concern for resp depression - Will start pt back on her home regimen as tolerated - Pain Mgmt f/u in outpatient 6. FEN - D51/2NS@83ml/hr - K repleted KCL PO, monitor BMP - NPO 7. DVT Prophylaxis - SCDs - Lovenox SQ Code Status: Full Code Dispo: Requires Inpatient Care Visit type - Emergency Visit Emergency Visit: Yes ED Registration Date: 08/07/17 Care time: The patient presented to the Emergency Department on the above date and was hospitalized for further evaluation of their emergent condition. - New Patient This patient is new to me today: Yes Date on this admission: 08/07/17 - Critical Care Critical Care patient: Yes Total Critical Care Time (in minutes): 75 Critical Care Statement: The care of this patient involved high complexity decision making to prevent further life threatening deterioration of the patient 's condition and/or to evaluate & treat vital organ system(s) failure or risk of failure.
[2017-08-07] MEDS ORDERED: POTASSIUM CHLORIDE ORAL LIQUID 20 MEQ/15 ML ONE (20:52)
[2017-08-07 21:05] LABS: PLATELET ESTIMATE ADEQUATE
[2017-08-07 21:20] LABS: ARTERIAL BLD GAS O2 SATURATION 98.6 % (90-98.9); ARTERIAL BLOOD GAS pH 7.25 (7.35-7.45)
[2017-08-07 21:27] LABS: ARTERIAL BLOOD GAS PCO2 13.5 mmHg (35-45)
[2017-08-07 21:28] LABS: ARTERIAL BLOOD GAS BASE EXCESS -20.3 meq/l (-2-2)
[2017-08-07 21:29] LABS: ALLENS TEST POSITIVE
[2017-08-07] MEDS ORDERED: DEXTROSE 5%-0.45% SALINE 1,000 ML IV SCH (21:45)
[2017-08-07] MEDS ORDERED: CHLORHEXIDINE GLUCONATE 4% CLEANSER FOR DECOLONIZATION TP SCH (22:00)
[2017-08-07] MEDS ORDERED: MUPIROCIN 2% TOPICAL OINTMENT FOR DECOLONIZATION NS SCH (22:00)
[2017-08-07 22:47] LABS: URINE APPEARANCE Clear; URINE BILIRUBIN 1+ (NEGATIVE); URINE BLOOD 2+ (NEGATIVE); URINE COLOR YELLOW; URINE GLUCOSE (UA) 2+ (NEGATIVE); URINE KETONE 4+ (NEGATIVE); URINE LEUK ESTERASE Negative (NEGATIVE); URINE NITRITE Negative (NEGATIVE); URINE PROTEIN 2+ (NEGATIVE); URINE UROBILINOGEN 0.2 (0.2-1.0)
[2017-08-07 22:48] LABS: HCG,QUALITATIVE URINE NEGATIVE
[2017-08-07 22:53] LABS: URINE BACTERIA FEW /hpf (NEGATIVE); URINE WBC 0-2 (0-5)
--- NOTE | 2017-08-07 23:42 | CONSULT ---
Consult Consult Specialty:: Pulm/CCM Reason for Consultation:: DKA - History of Present Illness Chief Complaint: Chronic back pain; nausea History of Present Illness: a 47yow with PMHx of IDDM , Gastroparesis, Chronic Back Pain who presents to [facility] ED c/o vomiting and loose stools x2 days. Pt also reports poor po intake and non-compliance with her insulin doses. She denied fever, chills, cough, SOB, CP, dysuria. In ED T98.1, HR 111, RR 18, BP 139/85, O2 sat 99%. Labs notable for WBC 29.7, 93%neut, Na 130, HCO3 6, gluc 368, AGAP 21, + urine ketones. ABG 7.25, 13.5, 164. She was started on insulin drip and fluids for DKA and transferred to [facility] ICU for further management. In ICU BP150/72, 101, O2 sat 98% on room air. C/o chronic back pain and nausea. On exam abd tender to palpation. Blood and urine cultures sent. Insulin drip and IVF continued. - History Source History Provided By: Patient, Medical Record Limitations to Obtaining History: Poor Historian - Past Medical History HOME CARE RN: Yes: Migraine Gastrointestinal: Yes: Other (Gastroparesis) ...LMP: 04/14/13 Musculoskeletal: Yes: Chronic low back pain Endocrine: Yes: Diabetes Mellitus Additional Medical History: dka in the past - Past Surgical History Past Surgical History: Yes: Cholecystectomy - Alcohol/Substance Use Hx Alcohol Use: No History of Substance Use: reports: None - Smoking History Smoking history: Current every day smoker Have you smoked in the past 12 months: Yes Aproximately how many cigarettes per day: 25 - Social History ADL: Independent History of Recent Travel: No Home Medications - Allergies Allergies/Adverse Reactions: Allergies Allergy/AdvReac Type Severity Reaction Status Date / Time No Known Allergies Allergy Verified 06/11/17 18:21 - Home Medications Home Medications: Ambulatory Orders Oxycodone HCl/Acetaminophen [Percocet 10-325 mg Tablet] 1 - 2 tab PO QID Insulin Sliding Scale [Novolog Vial Sliding Scale -] See Protocol SQ AC 30 Days units 12/07/15 Insulin Glargine,Hum.rec.anlog [Lantus Solostar PEN -] 10 units SQ HS 06/11/17 Ketorolac Tromethamine [Toradol] 10 mg PO Q6H PRN #20 tablet 06/16/17 Pantoprazole Sodium [Protonix -] 20 mg PO DAILY #30 tablet.ec 06/16/17 Atorvastatin Ca [Lipitor] 10 mg PO HS 08/07/17 Morphine *Immediate Release* [Msir -] 2 tab PO QID 08/07/17 Family Disease History - Family Disease History Family History: Unremarkable Review of Systems - Review of Systems Constitutional: reports: No Symptoms Eyes: reports: No Symptoms HENT: reports: No Symptoms Neck: reports: No Symptoms Cardiovascular: reports: No Symptoms Respiratory: reports: No Symptoms Gastrointestinal: reports: Nausea, Vomiting Genitourinary: reports: No Symptoms Musculoskeletal: reports: No Symptoms, Back Pain (chronic back pain) Integumentary: reports: No Symptoms Neurological: reports: No Symptoms Endocrine: reports: No Symptoms Hematology/Lymphatic: reports: No Symptoms Psychiatric: reports: No Symptoms Physical Exam Vital Signs: Vital Signs Temperature 98.5 F 08/07/17 19:30 Pulse Rate 94 H 08/07/17 21:22 Respiratory Rate 27 H 08/07/17 21:22 Blood Pressure 146/74 08/07/17 21:22 O2 Sat by Pulse Oximetry (%) 100 08/07/17 21:22 Constitutional: Yes: Well Nourished, No Distress, Anxious Eyes: Yes: WNL HENT: Yes: Atraumatic, Normocephalic Neck: Yes: Supple, Trachea Midline Cardiovascular: Yes: Regular Rate and Rhythm, Tachycardia, S1, S2 Respiratory: Yes: CTA Bilaterally Gastrointestinal: Yes: Soft, Other (tender to palpation on RMQ) ...Rectal Exam: Yes: Deferred Renal/: Yes: WNL Musculoskeletal: Yes: Back Pain (Chronic) Extremities: Yes: WNL Edema: No Peripheral Pulses WNL: Yes Integumentary: Yes: Body Piercing Neurological: Yes: Alert, Oriented ...Motor Strength: WNL Psychiatric: Yes: Alert, Oriented, Other (anxious) Labs: CBC, BMP 08/07/17 19:45 08/07/17 19:45 CBC,CMP WBC 31.8 K/mm3 (4.0-10.8) H* D 08/07/17 19:45 RBC 4.42 M/mm3 (3.60-5.2) 08/07/17 19:45 Hgb 12.9 GM/dl (10.7-15.3) 08/07/17 19:45 Hct 38.3 % (32.4-45.2) 08/07/17 19:45 MCV 86.7 fl (80-96) 08/07/17 19:45 MCH 29.2 pg (25.7-33.7) 08/07/17 19:45 MCHC 33.7 g/dl (32.0-36.0) 08/07/17 19:45 RDW 13.7 % (11.6-15.6) 08/07/17 19:45 Plt Count 406 K/MM3 (134-434) 08/07/17 19:45 MPV 9.1 fl (7.5-11.1) 08/07/17 19:45 Total Counted Cancelled 08/07/17 06:00 Neutrophils % No Result Required. 08/07/17 19:45 Neutrophils % (Manual) 93.0 % (42.8-82.8) H* 08/07/17 19:45 Band Neutrophils % 3.0 % (0-10) 08/07/17 19:45 Lymphocytes % No Result Required. 08/07/17 19:45 Lymphocytes % (Manual) 3.0 % (8-40) L 08/07/17 19:45 Monocytes % (Manual) 1 % (3.8-10.2) L 08/07/17 19:45 Eosinophils % (Manual) Cancelled 08/07/17 06:00 Basophils % (Manual) Cancelled 08/07/17 06:00 Myelocytes % (Man) Cancelled 08/07/17 06:00 Promyelocytes % (Man) Cancelled 08/07/17 06:00 Blast Cells % (Manual) Cancelled 08/07/17 06:00 Nucleated RBC % Cancelled 08/07/17 06:00 Metamyelocytes Cancelled 08/07/17 06:00 Differential Comment Cancelled 08/07/17 06:00 Hypersegmented Neuts Cancelled 08/07/17 06:00 Plasma Cells Cancelled 08/07/17 06:00 Smudge Cells Cancelled 08/07/17 06:00 Other Cell Type Cancelled 08/07/17 06:00 Hypochromia Cancelled 02/08/18 06:00 Toxic Granulation Cancelled 08/07/17 06:00 Dohle Bodies Cancelled 08/07/17 06:00 Platelet Estimate Adequate 08/07/17 19:45 Platelet Comment Few large platelets 08/07/17 19:45 Polychromasia Cancelled 08/07/17 06:00 Poikilocytosis Cancelled 08/07/17 06:00 Basophilic Stippling Cancelled 08/07/17 06:00 Anisocytosis Cancelled 08/07/17 06:00 Microcytosis Cancelled 08/07/17 06:00 Macrocytosis Cancelled 08/07/17 06:00 Spherocytes Cancelled 08/07/17 06:00 Siderocytes Cancelled 08/07/17 06:00 Sickle Cells Cancelled 08/07/17 06:00 Target Cells Cancelled 08/07/17 06:00 Tear Drop Cells Cancelled 08/07/17 06:00 Ovalocytes Cancelled 08/07/17 06:00 Stomatocytes Cancelled 08/07/17 06:00 Helmet Cells Cancelled 08/07/17 06:00 [employer] Bodies Cancelled 08/07/17 06:00 [place] Rings Cancelled 08/07/17 06:00 [place] Cells Cancelled 08/07/17 06:00 Acanthocytes (Spur) Cancelled 08/07/17 06:00 Rouleaux Cancelled 08/07/17 06:00 Fragmented RBCs Cancelled 08/07/17 06:00 Schistocytes Cancelled 08/07/17 06:00 Sodium 130 mmol/L (136-145) L 08/07/17 19:45 Potassium 3.0 mmol/L (3.5-5.1) L D 08/07/17 19:45 Chloride 104 mmol/L (98-107) 08/07/17 19:45 Carbon Dioxide 6 mmol/L (22-28) L D 08/07/17 19:45 Anion Gap 20 (8-16) H 08/07/17 19:45 BUN 33 mg/dl (7-18) H 08/07/17 19:45 Creatinine 1.5 mg/dl (0.6-1.3) H 08/07/17 19:45 Creat Clearance w eGFR 34.40 (>60) 08/07/17 08:20 POC Glucometer 169.54519 UNITS (80-120) 08/07/17 21:41 Random Glucose 368 mg/dl (74-106) H* D 08/07/17 19:45 Lactic Acid 1.2 mmol/L (0.0-2.0) 08/07/17 19:45 Calcium 8.2 mg/dl (8.4-10.2) L 08/07/17 19:45 Phosphorus 1.2 mg/dl (2.5-4.6) L D 08/07/17 19:45 Magnesium 2.0 mg/dL (1.8-2.4) 08/07/17 19:45 Total Bilirubin 1.5 mg/dl (0.2-1.0) H D 08/07/17 08:20 AST 14 U/L (10-42) D 08/07/17 08:20 ALT 13 U/L (10-40) D 08/07/17 08:20 Alkaline Phosphatase 87 U/L (32-92) 08/07/17 08:20 Total Protein 6.9 g/dl (6.4-8.3) 08/07/17 08:20 Albumin 3.6 g/dl (3.5-5.0) 08/07/17 08:20 Problem List - Problems (1) Diabetic keto-acidosis Code(s): E13.10 - OTH DIABETES MELLITUS WITH KETOACIDOSIS WITHOUT COMA Qualifiers: Diabetes mellitus type: type 1 Diabetes mellitus complication detail: without coma Qualified Code(s): E10.10 - Type 1 diabetes mellitus with ketoacidosis without coma (2) Hypokalemia Code(s): E87.6 - HYPOKALEMIA (3) Hyponatremia Code(s): E87.1 - HYPO-OSMOLALITY AND HYPONATREMIA (4) DVT prophylaxis Code(s): [id number] - (5) Diabetic gastroparesis associated with type 1 diabetes mellitus Code(s): E10.43 - TYPE 1 DIABETES W DIABETIC AUTONOMIC (POLY)NEUROPATHY; K31.84 - GASTROPARESIS Assessment/Plan 47yow with PMHx of IDDM , DM gastroparesis, chronic back pain 2/2 herniated disc who presents to [facility] ED c/o vomiting and loose stools x2 days. Pt also reports poor po intake and non-compliance with her insulin doses. She is admitted to ICU with DKA in setting of insulin non compliance and possible infectious process (abd source) Plan: -Cont insulin drip for BG goal 120-150 and AGAP<12 -BMP q6 -Monitor electrolytes; replete K -Cont IVF with dextrose when BG<150 @150/h -Leukocytosis- de [place] culture; consider ID consult -Check amylase, lipase -Trend lactate -ECG and troponin -Zofran prn for nausea -Pain med for chronic back pain -Cont PPI -DVT prophylaxis Giselle Corona, ACNP CC time 35mins
[2017-08-08 00:35] LABS: CARBOXYHEMOGLOBIN 1.8 gm% (0.5-2.0)
[2017-08-08] MEDS: oxyCODONE HCL 5 MG TABLET PO PRN (00:41)
[2017-08-08] MEDS: ONDANSETRON 4 MG/2 ML VIAL IVPUSH PRN ×2 (00:41→13:05)
[2017-08-08] MEDS: ACETAMINOPHEN 325 MG TABLET (FP) PO PRN (00:44)
[2017-08-08 01:14] LABS: HEMATOCRIT 37.5 % (32.4-45.2); HEMOGLOBIN 12.4 GM/dL (10.7-15.3); MCH 28.9 pg (25.7-33.7); MEAN CELL VOLUME 87.4 fl (80-96); MEAN PLT VOLUME 8.8 fl (7.5-11.1); PLATELET COUNT 356 K/MM3 (134-434); RBC 4.29 M/mm3 (3.60-5.2); RDW 14.4 % (11.6-15.6)
[2017-08-08 01:17] LABS: ALBUMIN 3.4 g/dl (3.4-5.0); AMYLASE 32 U/L (25-115); ANION GAP 19 (8-16); BLOOD UREA NITROGEN 31 mg/dL (7-18); CALCIUM 8.3 mg/dL (8.5-10.1); CHLORIDE 104 mmol/L (98-107); CO2 14 mmol/L (21-32); CREATININE 1.2 mg/dL (0.55-1.02); GLUCOSE,RANDOM 163 mg/dL (74-106); POTASSIUM 3.6 mmol/L (3.5-5.1); SGOT/AST 14 U/L (15-37); SGPT/ALT 15 U/L (12-78); SODIUM 137 mmol/L (136-145)
[2017-08-08 01:18] LABS: WHITE BLOOD COUNT 32.9 K/mm3 (4.0-10.0)
[2017-08-08 01:20] LABS: ALK PHOS 104 U/L (45-117); BILIRUBIN,TOTAL 0.5 mg/dL (0.2-1.0); TOT PROT 6.7 g/dl (6.4-8.2)
[2017-08-08] MEDS ORDERED: PIPERACILLIN/TAZOB 4.5 GM/100 ML PRE-DOCKED IVPB ONE (01:24)
[2017-08-08] MEDS ORDERED: PIPERACILLIN/TAZOB 4.5 GM 4.5 GM in DEXTROSE 5%-WATER - 100 ML IVPB ONE (01:45)
[2017-08-08 03:04] VITALS: BMI 24.7
[2017-08-08] MEDS ORDERED: DEXTROSE 5%-0.45% SALINE 1,000 ML IV SCH ×2 (04:22→09:30)
[2017-08-08 05:40] LABS: ANION GAP 11 (8-16); BLOOD UREA NITROGEN 26 mg/dL (7-18); CHLORIDE 109 mmol/L (98-107); CO2 16 mmol/L (21-32); CREATININE 1.1 mg/dL (0.55-1.02); GLUCOSE,RANDOM 179 mg/dL (74-106); POTASSIUM 3.9 mmol/L (3.5-5.1); SODIUM 136 mmol/L (136-145)
[2017-08-08 06:57] LABS: ARTERIAL BLD GAS O2 SATURATION 98.2 % (90-98.9); ARTERIAL BLOOD GAS BASE EXCESS -7.7 meq/l (-2-2); ARTERIAL BLOOD GAS PCO2 30.5 mmHg (35-45); ARTERIAL BLOOD GAS pH 7.35 (7.35-7.45)
[2017-08-08 07:14] LABS: ALLENS TEST POSITIVE
--- NOTE | 2017-08-08 08:32 | PN ---
Physical Exam: SUBJECTIVE: Patient seen and examined in the ICU. Vital Signs Period Temp Pulse Resp BP Sys/Rapp Pulse Ox Last 24 Hr 98.2 F-98.6 F 90-111 16-27 128-163/56-78 98-100 GENERAL: The patient is awake, alert, and fully oriented, in no acute distress. HEAD: Normal with no signs of trauma. EYES: PERRL, extraocular movements intact, sclera anicteric, conjunctiva clear. No ptosis. ENT: Ears normal, nares patent, oropharynx clear without exudates, moist mucous membranes. NECK: Trachea midline, full range of motion, supple. LUNGS: Breath sounds equal HEART: Regular rate and rhythm, S1, S2 without murmur, rub or gallop. ABDOMEN: Soft, nontender, nondistended, normoactive bowel sounds, no guarding, no rebound, no hepatosplenomegaly, no masses. EXTREMITIES: 2+ pulses, warm, well-perfused, no edema. NEUROLOGICAL: Normal speech, gait not observed. PSYCH: Normal mood, normal affect. SKIN: Warm, dry, normal turgor, no rashes or lesions noted Laboratory Results - last 24 hr 08/07/17 08/07/17 08/07/17 05:16 08:20 08:31 WBC RBC Hgb Hct MCV MCH MCHC RDW Plt Count MPV Neutrophils % Neutrophils % (Manual) Band Neutrophils % Lymphocytes % Lymphocytes % (Manual) Monocytes % (Manual) Platelet Estimate Platelet Comment Anticoagulation Therapy Puncture Site ABG pH ABG pCO2 at Pt Temp ABG pO2 at Pt Temp ABG HCO3 ABG O2 Sat (Measured) ABG O2 Content ABG Base Excess Atul Test Carboxyhemoglobin Methemoglobin O2 Delivery Device Oxygen Flow Rate Vent Mode Vent Rate Mechanical Rate Pressure Support Vent Sodium 127 L Potassium 3.1 L Chloride 93 L Carbon Dioxide 16 L D Anion Gap 18 H BUN 44 H D Creatinine 1.6 H D Creat Clearance w eGFR 34.40 POC Glucometer > 400 > 400 Random Glucose 479 H* D Lactic Acid Calcium 8.5 Phosphorus Magnesium Total Bilirubin 1.5 H D AST 14 D ALT 13 D Alkaline Phosphatase 87 Creatine Kinase Troponin I Total Protein 6.9 Albumin 3.6 Total Amylase Urine Color Urine Appearance Urine pH Ur Specific [place] Urine Protein Urine Glucose (UA) Urine Ketones Urine Blood Urine Nitrite Urine Bilirubin Urine Urobilinogen Ur Leukocyte Esterase Urine RBC Urine WBC Urine Bacteria Urine HCG, Qual Acetone, Qual 08/07/17 08/07/17 08/07/17 09:45 11:34 12:20 WBC RBC Hgb Hct MCV MCH MCHC RDW Plt Count MPV Neutrophils % Neutrophils % (Manual) Band Neutrophils % Lymphocytes % Lymphocytes % (Manual) Monocytes % (Manual) Platelet Estimate Platelet Comment Anticoagulation Therapy Puncture Site ABG pH ABG pCO2 at Pt Temp ABG pO2 at Pt Temp ABG HCO3 ABG O2 Sat (Measured) ABG O2 Content ABG Base Excess Atul Test Carboxyhemoglobin Methemoglobin O2 Delivery Device Oxygen Flow Rate Vent Mode Vent Rate Mechanical Rate Pressure Support Vent Sodium 124 L* Potassium 3.9 D Chloride 94 L Carbon Dioxide 12 L D Anion Gap 18 H BUN 39 H Creatinine 1.3 Creat Clearance w eGFR POC Glucometer > 400 Random Glucose 547 H* Lactic Acid Calcium 8.1 L Phosphorus Magnesium Total Bilirubin AST ALT Alkaline Phosphatase Creatine Kinase Troponin I Total Protein Albumin Total Amylase Urine Color Urine Appearance Urine pH Ur Specific [place] Urine Protein Urine Glucose (UA) Urine Ketones Urine Blood Urine Nitrite Urine Bilirubin Urine Urobilinogen Ur Leukocyte Esterase Urine RBC Urine WBC Urine Bacteria Urine HCG, Qual Acetone, Qual Positive small 1+ H 08/07/17 08/07/17 08/07/17 14:34 16:24 16:25 WBC RBC Hgb Hct MCV MCH MCHC RDW Plt Count MPV Neutrophils % Neutrophils % (Manual) Band Neutrophils % Lymphocytes % Lymphocytes % (Manual) Monocytes % (Manual) Platelet Estimate Platelet Comment Anticoagulation Therapy Puncture Site ABG pH ABG pCO2 at Pt Temp ABG pO2 at Pt Temp ABG HCO3 ABG O2 Sat (Measured) ABG O2 Content ABG Base Excess Atul Test Carboxyhemoglobin Methemoglobin O2 Delivery Device Oxygen Flow Rate Vent Mode Vent Rate Mechanical Rate Pressure Support Vent Sodium 125 L Potassium 4.0 Chloride 96 L Carbon Dioxide 8 L D Anion Gap 21 H BUN 36 H Creatinine 1.4 H Creat Clearance w eGFR POC Glucometer > 400 > 400 Random Glucose 552 H* Lactic Acid Calcium 8.2 L Phosphorus Magnesium Total Bilirubin AST ALT Alkaline Phosphatase Creatine Kinase Troponin I Total Protein Albumin Total Amylase Urine Color Urine Appearance Urine pH Ur Specific [place] Urine Protein Urine Glucose (UA) Urine Ketones Urine Blood Urine Nitrite Urine Bilirubin Urine Urobilinogen Ur Leukocyte Esterase Urine RBC Urine WBC Urine Bacteria Urine HCG, Qual Acetone, Qual 08/07/17 08/07/17 08/07/17 18:38 19:23 19:45 WBC RBC Hgb Hct MCV MCH MCHC RDW Plt Count MPV Neutrophils % Neutrophils % (Manual) Band Neutrophils % Lymphocytes % Lymphocytes % (Manual) Monocytes % (Manual) Platelet Estimate Platelet Comment Anticoagulation Therapy No Result Required. Puncture Site No Result Required. ABG pH 7.25 L ABG pCO2 at Pt Temp 13.5 L* D ABG pO2 at Pt Temp 164.0 H* ABG HCO3 5.7 L* ABG O2 Sat (Measured) 98.6 ABG O2 Content 17.1 ABG Base Excess -20.3 L* Atul Test Positive Carboxyhemoglobin Methemoglobin O2 Delivery Device No Result Required. Oxygen Flow Rate No Result Required. Vent Mode No Result Required. Vent Rate No Result Required. Mechanical Rate No Result Required. Pressure Support Vent No Result Required. Sodium Potassium Chloride Carbon Dioxide Anion Gap BUN Creatinine Creat Clearance w eGFR POC Glucometer > 400 > 400 Random Glucose Lactic Acid Calcium Phosphorus Magnesium Total Bilirubin AST ALT Alkaline Phosphatase Creatine Kinase Troponin I Total Protein Albumin Total Amylase Urine Color Urine Appearance Urine pH Ur Specific [place] Urine Protein Urine Glucose (UA) Urine Ketones Urine Blood Urine Nitrite Urine Bilirubin Urine Urobilinogen Ur Leukocyte Esterase Urine RBC Urine WBC Urine Bacteria Urine HCG, Qual Acetone, Qual 08/07/17 08/07/17 08/07/17 19:45 19:45 19:45 WBC 31.8 H* D RBC 4.42 Hgb 12.9 Hct 38.3 MCV 86.7 MCH 29.2 MCHC 33.7 RDW 13.7 Plt Count 406 MPV 9.1 Neutrophils % No Result Required. Neutrophils % (Manual) 93.0 H* Band Neutrophils % 3.0 Lymphocytes % No Result Required. Lymphocytes % (Manual) 3.0 L Monocytes % (Manual) 1 L Platelet Estimate Adequate Platelet Comment Few large platelets Anticoagulation Therapy Puncture Site ABG pH ABG pCO2 at Pt Temp ABG pO2 at Pt Temp ABG HCO3 ABG O2 Sat (Measured) ABG O2 Content ABG Base Excess Atul Test Carboxyhemoglobin Methemoglobin O2 Delivery Device Oxygen Flow Rate Vent Mode Vent Rate Mechanical Rate Pressure Support Vent Sodium 130 L Potassium 3.0 L D Chloride 104 Carbon Dioxide 6 L D Anion Gap 20 H BUN 33 H Creatinine 1.5 H Creat Clearance w eGFR POC Glucometer Random Glucose 368 H* D Lactic Acid 1.2 Calcium 8.2 L Phosphorus 1.2 L D Magnesium 2.0 Total Bilirubin AST ALT Alkaline Phosphatase Creatine Kinase Troponin I Total Protein Albumin Total Amylase Urine Color Urine Appearance Urine pH Ur Specific [place] Urine Protein Urine Glucose (UA) Urine Ketones Urine Blood Urine Nitrite Urine Bilirubin Urine Urobilinogen Ur Leukocyte Esterase Urine RBC Urine WBC Urine Bacteria Urine HCG, Qual Acetone, Qual 08/07/17 08/07/17 08/07/17 19:45 20:37 21:41 WBC RBC Hgb Hct MCV MCH MCHC RDW Plt Count MPV Neutrophils % Neutrophils % (Manual) Band Neutrophils % Lymphocytes % Lymphocytes % (Manual) Monocytes % (Manual) Platelet Estimate Platelet Comment Anticoagulation Therapy Puncture Site ABG pH ABG pCO2 at Pt Temp ABG pO2 at Pt Temp ABG HCO3 ABG O2 Sat (Measured) ABG O2 Content ABG Base Excess Atul Test Carboxyhemoglobin 1.8 Methemoglobin 1.3 O2 Delivery Device Oxygen Flow Rate Vent Mode Vent Rate Mechanical Rate Pressure Support Vent Sodium Potassium Chloride Carbon Dioxide Anion Gap BUN Creatinine Creat Clearance w eGFR POC Glucometer 262.65715 169.25534 Random Glucose Lactic Acid Calcium Phosphorus Magnesium Total Bilirubin AST ALT Alkaline Phosphatase Creatine Kinase Troponin I Total Protein Albumin Total Amylase Urine Color Urine Appearance Urine pH Ur Specific [place] Urine Protein Urine Glucose (UA) Urine Ketones Urine Blood Urine Nitrite Urine Bilirubin Urine Urobilinogen Ur Leukocyte Esterase Urine RBC Urine WBC Urine Bacteria Urine HCG, Qual Acetone, Qual 08/07/17 08/07/17 08/07/17 22:30 22:36 23:40 WBC RBC Hgb Hct MCV MCH MCHC RDW Plt Count MPV Neutrophils % Neutrophils % (Manual) Band Neutrophils % Lymphocytes % Lymphocytes % (Manual) Monocytes % (Manual) Platelet Estimate Platelet Comment Anticoagulation Therapy Puncture Site ABG pH ABG pCO2 at Pt Temp ABG pO2 at Pt Temp ABG HCO3 ABG O2 Sat (Measured) ABG O2 Content ABG Base Excess Atul Test Carboxyhemoglobin Methemoglobin O2 Delivery Device Oxygen Flow Rate Vent Mode Vent Rate Mechanical Rate Pressure Support Vent Sodium Potassium Chloride Carbon Dioxide Anion Gap BUN Creatinine Creat Clearance w eGFR POC Glucometer 171.12089 201.82818 Random Glucose Lactic Acid Calcium Phosphorus Magnesium Total Bilirubin AST ALT Alkaline Phosphatase Creatine Kinase Troponin I Total Protein Albumin Total Amylase Urine Color Yellow Urine Appearance Clear Urine pH 5.0 Ur Specific [place] 1.015 Urine Protein 2+ H Urine Glucose (UA) 2+ H Urine Ketones 4+ H Urine Blood 2+ H Urine Nitrite Negative Urine Bilirubin 1+ H Urine Urobilinogen 0.2 Ur Leukocyte Esterase Negative Urine RBC 4-8 Urine WBC 0-2 Urine Bacteria Few Urine HCG, Qual Negative Acetone, Qual 08/08/17 08/08/17 08/08/17 00:30 00:38 00:50 WBC 32.9 H* RBC 4.29 Hgb 12.4 D Hct 37.5 D MCV 87.4 MCH 28.9 MCHC 33.0 RDW 14.4 Plt Count 356 D MPV 8.8 Neutrophils % Neutrophils % (Manual) Band Neutrophils % Lymphocytes % Lymphocytes % (Manual) Monocytes % (Manual) Platelet Estimate Platelet Comment Anticoagulation Therapy Puncture Site ABG pH ABG pCO2 at Pt Temp ABG pO2 at Pt Temp ABG HCO3 ABG O2 Sat (Measured) ABG O2 Content ABG Base Excess Atul Test Carboxyhemoglobin Methemoglobin O2 Delivery Device Oxygen Flow Rate Vent Mode Vent Rate Mechanical Rate Pressure Support Vent Sodium 137 Potassium 3.6 Chloride 104 Carbon Dioxide 14 L Anion Gap 19 H BUN 31 H Creatinine 1.2 H Creat Clearance w eGFR 47.95 POC Glucometer 173.71948 Random Glucose 163 H Lactic Acid Calcium 8.3 L Phosphorus Magnesium Total Bilirubin 0.5 D AST 14 L ALT 15 Alkaline Phosphatase 104 Creatine Kinase 126 Troponin I < 0.02 Total Protein 6.7 Albumin 3.4 Total Amylase 32 Urine Color Urine Appearance Urine pH Ur Specific [place] Urine Protein Urine Glucose (UA) Urine Ketones Urine Blood Urine Nitrite Urine Bilirubin Urine Urobilinogen Ur Leukocyte Esterase Urine RBC Urine WBC Urine Bacteria Urine HCG, Qual Acetone, Qual 08/08/17 08/08/17 08/08/17 02:17 03:05 04:09 WBC RBC Hgb Hct MCV MCH MCHC RDW Plt Count MPV Neutrophils % Neutrophils % (Manual) Band Neutrophils % Lymphocytes % Lymphocytes % (Manual) Monocytes % (Manual) Platelet Estimate Platelet Comment Anticoagulation Therapy Puncture Site ABG pH ABG pCO2 at Pt Temp ABG pO2 at Pt Temp ABG HCO3 ABG O2 Sat (Measured) ABG O2 Content ABG Base Excess Atul Test Carboxyhemoglobin Methemoglobin O2 Delivery Device Oxygen Flow Rate Vent Mode Vent Rate Mechanical Rate Pressure Support Vent Sodium Potassium Chloride Carbon Dioxide Anion Gap BUN Creatinine Creat Clearance w eGFR POC Glucometer 137.51437 162.58168 196.56936 Random Glucose Lactic Acid Calcium Phosphorus Magnesium Total Bilirubin AST ALT Alkaline Phosphatase Creatine Kinase Troponin I Total Protein Albumin Total Amylase Urine Color Urine Appearance Urine pH Ur Specific [place] Urine Protein Urine Glucose (UA) Urine Ketones Urine Blood Urine Nitrite Urine Bilirubin Urine Urobilinogen Ur Leukocyte Esterase Urine RBC Urine WBC Urine Bacteria Urine HCG, Qual Acetone, Qual 08/08/17 08/08/17 08/08/17 05:00 05:00 05:05 WBC RBC Hgb Hct MCV MCH MCHC RDW Plt Count MPV Neutrophils % Neutrophils % (Manual) Band Neutrophils % Lymphocytes % Lymphocytes % (Manual) Monocytes % (Manual) Platelet Estimate Platelet Comment Anticoagulation Therapy Puncture Site ABG pH ABG pCO2 at Pt Temp ABG pO2 at Pt Temp ABG HCO3 ABG O2 Sat (Measured) ABG O2 Content ABG Base Excess Atul Test Carboxyhemoglobin Methemoglobin O2 Delivery Device Oxygen Flow Rate Vent Mode Vent Rate Mechanical Rate Pressure Support Vent Sodium 136 Potassium 3.9 Chloride 109 H Carbon Dioxide 16 L Anion Gap 11 BUN 26 H Creatinine 1.1 H Creat Clearance w eGFR POC Glucometer 194.88234 Random Glucose 179 H Lactic Acid 0.6 Calcium 7.0 L Phosphorus Magnesium Total Bilirubin AST ALT Alkaline Phosphatase Creatine Kinase Troponin I Total Protein Albumin Total Amylase Urine Color Urine Appearance Urine pH Ur Specific [place] Urine Protein Urine Glucose (UA) Urine Ketones Urine Blood Urine Nitrite Urine Bilirubin Urine Urobilinogen Ur Leukocyte Esterase Urine RBC Urine WBC Urine Bacteria Urine HCG, Qual Acetone, Qual 08/08/17 06:28 WBC RBC Hgb Hct MCV MCH MCHC RDW Plt Count MPV Neutrophils % Neutrophils % (Manual) Band Neutrophils % Lymphocytes % Lymphocytes % (Manual) Monocytes % (Manual) Platelet Estimate Platelet Comment Anticoagulation Therapy Puncture Site Right radial ABG pH 7.35 ABG pCO2 at Pt Temp 30.5 L D ABG pO2 at Pt Temp 101.0 H D ABG HCO3 16.5 L ABG O2 Sat (Measured) 98.2 ABG O2 Content 14.3 L ABG Base Excess -7.7 L Atul Test Positive Carboxyhemoglobin Methemoglobin O2 Delivery Device Room air Oxygen Flow Rate No Result Required. Vent Mode Vent Rate Mechanical Rate Pressure Support Vent Sodium Potassium Chloride Carbon Dioxide Anion Gap BUN Creatinine Creat Clearance w eGFR POC Glucometer Random Glucose Lactic Acid Calcium Phosphorus Magnesium Total Bilirubin AST ALT Alkaline Phosphatase Creatine Kinase Troponin I Total Protein Albumin Total Amylase Urine Color Urine Appearance Urine pH Ur Specific [place] Urine Protein Urine Glucose (UA) Urine Ketones Urine Blood Urine Nitrite Urine Bilirubin Urine Urobilinogen Ur Leukocyte Esterase Urine RBC Urine WBC Urine Bacteria Urine HCG, Qual Acetone, Qual Active Medications Generic Name Dose Route Start Last Admin Trade Name Freq PRN Reason Stop Dose Admin Acetaminophen 650 mg 08/08/17 00:12 08/08/17 00:44 Tylenol - PO 08/11/17 00:11 650 mg Q4H PRN Administration PAIN LEVEL 6-10 Chlorhexidine Gluconate 1 applic 08/07/17 22:45 Hibiclens For Decolonization - TP HS [facility] Hydromorphone HCl 0.5 mg 08/08/17 00:50 Dilaudid Injection - IVPUSH Q4H PRN BACK PAIN Insulin Human Regular 100 100 mls @ 3 mls/hr 08/07/17 13:30 08/08/17 06:34 units/ Sodium Chloride IVPB 5 units/hr TITR [facility] 5 mls/hr Protocol Titration 3 UNITS/HR Dextrose/Sodium Chloride 1,000 mls @ 150 mls/hr 08/08/17 04:22 08/08/17 07:11 D5-1/2ns - IV 150 mls/hr ASDIR [facility] Administration Mupirocin 1 applic 08/07/17 22:45 Bactroban Ointment (For Decolonization) - NS 08/12/17 21:59 BID [facility] Ondansetron HCl 4 mg 08/07/17 20:38 08/08/17 00:41 Zofran Injection IVPUSH 4 mg Q6H PRN Administration NAUSEA AND/OR VOMITING Oxycodone HCl 10 mg 08/08/17 00:12 08/08/17 00:41 Roxicodone - PO 10 mg Q4H PRN Administration PAIN LEVEL 6-10 Piperacillin/Tazobactam/Dextrose 3.375 gm 08/08/17 10:00 Zosyn 3.375gm Ivpb (Premix) IVPB Q8H-IV [facility] ASSESSMENT/PLAN: Patient is a 47 y/o woman with a past medical history of IDDM (non-compliance), Gastroparesis, Chronic Back Pain. Who presents to the ED c/o excessive vomiting and loose stools. Patient also reports severe back pain which she could not take her po pain meds, secondary to vomiting. Patient denies fever, chills, cough, SOB, CP, constipation, dysuria. She presents to [facility] in DKA. Endocrine: DKA, resolving ICU monitoring stop Insulin drip, AG closed, serum glucose 98 Now on d5 1/2 ns 10meq Replete K, follow labs Continue cardiac monitoring Re-start home insulin Endocrinology follow up RD follow up for non compliance ID: Leukocytosis Infectious vs Inflammatory Started on zosyn, ID following Blood cultures pending Chronic Back Pain Given Dilaudid in ED Pain Mgmt f/u in outpatient Transition to PO F.E.N. Fluids: d5 1/2 10-meq Electrolytes: hypoK repleted, Nutrition: diabetic diet Prophylaxis: DVT: ambulatory GI: Protonix Disposition: full code Visit type - Emergency Visit Emergency Visit: Yes ED Registration Date: 08/07/17 Care time: The patient presented to the Emergency Department on the above date and was hospitalized for further evaluation of their emergent condition. - New Patient This patient is new to me today: Yes Date on this admission: 08/09/17 - Critical Care Critical Care patient: Yes Total Critical Care Time (in minutes): 60 Critical Care Statement: The care of this patient involved high complexity decision making to prevent further life threatening deterioration of the patient 's condition and/or to evaluate & treat vital organ system(s) failure or risk of failure. - Discharge Referral Referred to [facility] No
[2017-08-08 08:35] LABS: BASO % 0.5 % (0-2.0); HEMATOCRIT 32.6 % (32.4-45.2); HEMOGLOBIN 10.6 GM/dL (10.7-15.3); LYMPH % 12.4 % (8-40); MCH 28.5 pg (25.7-33.7); MCHC 32.5 g/dl (32.0-36.0); MEAN CELL VOLUME 87.6 fl (80-96); MEAN PLT VOLUME 8.7 fl (7.5-11.1); MONO % 5.7 % (3.8-10.2); NEUT % 81.4 % (42.8-82.8); PLATELET COUNT 266 K/MM3 (134-434); RBC 3.72 M/mm3 (3.60-5.2); RDW 14.4 % (11.6-15.6); WHITE BLOOD COUNT 27.1 K/mm3 (4.0-10.0)
[2017-08-08 08:48] LABS: ANION GAP 7 (8-16); BLOOD UREA NITROGEN 22 mg/dL (7-18); CALCIUM 7.1 mg/dL (8.5-10.1); CHLORIDE 110 mmol/L (98-107); CO2 20 mmol/L (21-32); CREATININE 1.1 mg/dL (0.55-1.02); GLUCOSE,RANDOM 124 mg/dL (74-106); POTASSIUM 3.4 mmol/L (3.5-5.1); SODIUM 137 mmol/L (136-145)
[2017-08-08] MEDS ORDERED: SODIUM CHLORIDE 1,000 ML IV SCH ×2 (09:30)
[2017-08-08] MEDS ORDERED: PIPERACIL/TAZOB 3.375 GM 3.375 GM/50 ML PREMIX IVPB SCH (10:00)
[2017-08-08] MEDS ORDERED: PIPERACILLIN/TAZOB 3.375 GM 3.375 GM in DEXTROSE 5%-WATER - 50 ML IVPB SCH (10:00)
[2017-08-08] MEDS: HYDROmorphone HCL CARPU-JECT 1 MG/1 ML DISP.SYRIN IVPUSH PRN ×2 (10:12→19:30)
[2017-08-08] MEDS: ENOXAPARIN NA (PORCINE) 40 MG/0.4 ML DISP.SYRIN SQ SCH (10:19)
[2017-08-08] MEDS: MUPIROCIN 2% TOPICAL OINTMENT FOR DECOLONIZATION NS SCH ×2 (10:20→21:27)
[2017-08-08] MEDS ORDERED: INSULIN DETEMIR 100 UNITS/ML MDV SQ ONE (11:08)
[2017-08-08] MEDS: D5-1/2NS+10 MEQ KCL - 10 MEQ/1,000 ML INFUS.BAG IV SCH (11:54)
[2017-08-08] MEDS: INSULIN SLIDING SCALE (NOVOLOG) 1 VIAL SQ SCH ×3 (11:59→21:34)
[2017-08-08] MEDS ORDERED: DEXTROSE 50%-WATER - 25 GM/50 ML VIAL IVPUSH ONE (12:01)
--- NOTE | 2017-08-08 12:04 | PN ---
Teaching Attending Note Name of Resident: Tien Chin ATTENDING PHYSICIAN STATEMENT I saw and evaluated the patient. I reviewed the resident's note and discussed the case with the resident. I agree with the resident's findings and plan as documented. SUBJECTIVE: Patient seen and examined in the ICU. Awake and alert. Remains on IV Insulin drip. Uncomfortable due to non-specific generalized abdominal discomfort. No CP or SOB. Intake & Output 08/05/17 08/06/17 08/07/17 08/08/17 23:59 23:59 23:59 23:59 Intake Total 4419.5 Output Total 2300 Balance 2119.5 Weight 126 lb 9.6 oz Last Vital Signs Temp Pulse Resp BP Pulse Ox 99 F 75 20 105/65 100 08/08/17 10:00 08/08/17 10:00 08/08/17 10:00 08/08/17 10:00 08/08/17 09:00 Active Medications Acetaminophen (Tylenol -) 650 mg PO Q4H PRN PRN Reason: PAIN LEVEL 6-10 Stop: 08/11/17 00:11 Last Admin: 08/08/17 00:44 Dose: 650 mg Chlorhexidine Gluconate (Hibiclens For Decolonization -) 1 applic TP HS [facility] Enoxaparin Sodium (Lovenox -) 40 mg SQ DAILY [facility] Last Admin: 08/08/17 10:19 Dose: 40 mg Hydromorphone HCl (Dilaudid Injection -) 0.5 mg IVPUSH Q4H PRN PRN Reason: BACK PAIN Last Admin: 08/08/17 10:12 Dose: 0.5 mg Piperacillin Sod/Tazobactam (Sod 3.375 gm/ Dextrose) 50 mls @ 100 mls/hr IVPB Q8H-IV [facility] Stop: 08/09/17 09:59 Last Admin: 08/08/17 10:49 Dose: 100 mls/hr Potassium Chloride/Dextrose/Sod Cl (D5-1/2ns+10 Meq Kcl -) 10 meq in 1,000 mls @ 83 mls/hr IV ASDIR [facility] Insulin Aspart (Novolog Vial Sliding Scale -) 1 vial SQ ACHS [facility] PRN Reason: Protocol Insulin Detemir (Levemir Vial) 12 units SQ BID@0700,2200 [facility] Mupirocin (Bactroban Ointment (For Decolonization) -) 1 applic NS BID [facility] Stop: 08/12/17 21:59 Last Admin: 08/08/17 10:20 Dose: 1 applic Ondansetron HCl (Zofran Injection) 4 mg IVPUSH Q6H PRN PRN Reason: NAUSEA AND/OR VOMITING Last Admin: 08/08/17 00:41 Dose: 4 mg Oxycodone HCl (Roxicodone -) 10 mg PO Q4H PRN PRN Reason: PAIN LEVEL 6-10 Last Admin: 08/08/17 00:41 Dose: 10 mg Piperacillin/Tazobactam/Dextrose (Zosyn 3.375gm Ivpb (Premix)) 3.375 gm IVPB Q8H-IV [facility] Constitutional: Yes: Awake and alert, No Distress, Anxious Eyes: Yes: WNL HENT: Yes: Atraumatic, Normocephalic Neck: Yes: Supple, Trachea Midline Cardiovascular: Yes: Regular Rate and Rhythm, Tachycardia, S1, S2 Respiratory: Yes: CTA Bilaterally Gastrointestinal: Yes: Soft, (+) tender to palpation, no guarding or rigidity ...Rectal Exam: Yes: Deferred Renal/: Yes: WNL Musculoskeletal: Yes: Back Pain (Chronic) Extremities: Yes: WNL Edema: No Peripheral Pulses WNL: Yes Integumentary: Yes: Body Piercing Neurological: Yes: Alert, Oriented ...Motor Strength: WNL Psychiatric: Yes: Alert, Oriented, Other (anxious) Labs: Laboratory Results - last 24 hr 08/07/17 08/07/17 08/07/17 11:34 12:20 14:34 WBC RBC Hgb Hct MCV MCH MCHC RDW Plt Count MPV Neutrophils % Neutrophils % (Manual) Band Neutrophils % Lymphocytes % Lymphocytes % (Manual) Monocytes % Monocytes % (Manual) Eosinophils % Basophils % Platelet Estimate Platelet Comment Anticoagulation Therapy Puncture Site ABG pH ABG pCO2 at Pt Temp ABG pO2 at Pt Temp ABG HCO3 ABG O2 Sat (Measured) ABG O2 Content ABG Base Excess Atul Test Carboxyhemoglobin Methemoglobin O2 Delivery Device Oxygen Flow Rate Vent Mode Vent Rate Mechanical Rate Pressure Support Vent Sodium 124 L* Potassium 3.9 D Chloride 94 L Carbon Dioxide 12 L D Anion Gap 18 H BUN 39 H Creatinine 1.3 Creat Clearance w eGFR POC Glucometer > 400 > 400 Random Glucose 547 H* Lactic Acid Calcium 8.1 L Phosphorus Magnesium Total Bilirubin AST ALT Alkaline Phosphatase Creatine Kinase Troponin I Total Protein Albumin Total Amylase Urine Color Urine Appearance Urine pH Ur Specific Lyles Urine Protein Urine Glucose (UA) Urine Ketones Urine Blood Urine Nitrite Urine Bilirubin Urine Urobilinogen Ur Leukocyte Esterase Urine RBC Urine WBC Urine Bacteria Urine HCG, Qual 08/07/17 08/07/17 08/07/17 16:24 16:25 18:38 WBC RBC Hgb Hct MCV MCH MCHC RDW Plt Count MPV Neutrophils % Neutrophils % (Manual) Band Neutrophils % Lymphocytes % Lymphocytes % (Manual) Monocytes % Monocytes % (Manual) Eosinophils % Basophils % Platelet Estimate Platelet Comment Anticoagulation Therapy Puncture Site ABG pH ABG pCO2 at Pt Temp ABG pO2 at Pt Temp ABG HCO3 ABG O2 Sat (Measured) ABG O2 Content ABG Base Excess Atul Test Carboxyhemoglobin Methemoglobin O2 Delivery Device Oxygen Flow Rate Vent Mode Vent Rate Mechanical Rate Pressure Support Vent Sodium 125 L Potassium 4.0 Chloride 96 L Carbon Dioxide 8 L D Anion Gap 21 H BUN 36 H Creatinine 1.4 H Creat Clearance w eGFR POC Glucometer > 400 > 400 Random Glucose 552 H* Lactic Acid Calcium 8.2 L Phosphorus Magnesium Total Bilirubin AST ALT Alkaline Phosphatase Creatine Kinase Troponin I Total Protein Albumin Total Amylase Urine Color Urine Appearance Urine pH Ur Specific Lyles Urine Protein Urine Glucose (UA) Urine Ketones Urine Blood Urine Nitrite Urine Bilirubin Urine Urobilinogen Ur Leukocyte Esterase Urine RBC Urine WBC Urine Bacteria Urine HCG, Qual 08/07/17 08/07/17 08/07/17 19:23 19:45 19:45 WBC 31.8 H* D RBC 4.42 Hgb 12.9 Hct 38.3 MCV 86.7 MCH 29.2 MCHC 33.7 RDW 13.7 Plt Count 406 MPV 9.1 Neutrophils % No Result Required. Neutrophils % (Manual) 93.0 H* Band Neutrophils % 3.0 Lymphocytes % No Result Required. Lymphocytes % (Manual) 3.0 L Monocytes % Monocytes % (Manual) 1 L Eosinophils % Basophils % Platelet Estimate Adequate Platelet Comment Few large platelets Anticoagulation Therapy No Result Required. Puncture Site No Result Required. ABG pH 7.25 L ABG pCO2 at Pt Temp 13.5 L* D ABG pO2 at Pt Temp 164.0 H* ABG HCO3 5.7 L* ABG O2 Sat (Measured) 98.6 ABG O2 Content 17.1 ABG Base Excess -20.3 L* Atul Test Positive Carboxyhemoglobin Methemoglobin O2 Delivery Device No Result Required. Oxygen Flow Rate No Result Required. Vent Mode No Result Required. Vent Rate No Result Required. Mechanical Rate No Result Required. Pressure Support Vent No Result Required. Sodium Potassium Chloride Carbon Dioxide Anion Gap BUN Creatinine Creat Clearance w eGFR POC Glucometer > 400 Random Glucose Lactic Acid Calcium Phosphorus Magnesium Total Bilirubin AST ALT Alkaline Phosphatase Creatine Kinase Troponin I Total Protein Albumin Total Amylase Urine Color Urine Appearance Urine pH Ur Specific Lyles Urine Protein Urine Glucose (UA) Urine Ketones Urine Blood Urine Nitrite Urine Bilirubin Urine Urobilinogen Ur Leukocyte Esterase Urine RBC Urine WBC Urine Bacteria Urine HCG, Qual 08/07/17 08/07/17 08/07/17 19:45 19:45 19:45 WBC RBC Hgb Hct MCV MCH MCHC RDW Plt Count MPV Neutrophils % Neutrophils % (Manual) Band Neutrophils % Lymphocytes % Lymphocytes % (Manual) Monocytes % Monocytes % (Manual) Eosinophils % Basophils % Platelet Estimate Platelet Comment Anticoagulation Therapy Puncture Site ABG pH ABG pCO2 at Pt Temp ABG pO2 at Pt Temp ABG HCO3 ABG O2 Sat (Measured) ABG O2 Content ABG Base Excess Atul Test Carboxyhemoglobin 1.8 Methemoglobin 1.3 O2 Delivery Device Oxygen Flow Rate Vent Mode Vent Rate Mechanical Rate Pressure Support Vent Sodium 130 L Potassium 3.0 L D Chloride 104 Carbon Dioxide 6 L D Anion Gap 20 H BUN 33 H Creatinine 1.5 H Creat Clearance w eGFR POC Glucometer Random Glucose 368 H* D Lactic Acid 1.2 Calcium 8.2 L Phosphorus 1.2 L D Magnesium 2.0 Total Bilirubin AST ALT Alkaline Phosphatase Creatine Kinase Troponin I Total Protein Albumin Total Amylase Urine Color Urine Appearance Urine pH Ur Specific Lyles Urine Protein Urine Glucose (UA) Urine Ketones Urine Blood Urine Nitrite Urine Bilirubin Urine Urobilinogen Ur Leukocyte Esterase Urine RBC Urine WBC Urine Bacteria Urine HCG, Qual 08/07/17 08/07/17 08/07/17 20:37 21:41 22:30 WBC RBC Hgb Hct MCV MCH MCHC RDW Plt Count MPV Neutrophils % Neutrophils % (Manual) Band Neutrophils % Lymphocytes % Lymphocytes % (Manual) Monocytes % Monocytes % (Manual) Eosinophils % Basophils % Platelet Estimate Platelet Comment Anticoagulation Therapy Puncture Site ABG pH ABG pCO2 at Pt Temp ABG pO2 at Pt Temp ABG HCO3 ABG O2 Sat (Measured) ABG O2 Content ABG Base Excess Atul Test Carboxyhemoglobin Methemoglobin O2 Delivery Device Oxygen Flow Rate Vent Mode Vent Rate Mechanical Rate Pressure Support Vent Sodium Potassium Chloride Carbon Dioxide Anion Gap BUN Creatinine Creat Clearance w eGFR POC Glucometer 262.51614 169.21699 171.47721 Random Glucose Lactic Acid Calcium Phosphorus Magnesium Total Bilirubin AST ALT Alkaline Phosphatase Creatine Kinase Troponin I Total Protein Albumin Total Amylase Urine Color Urine Appearance Urine pH Ur Specific Lyles Urine Protein Urine Glucose (UA) Urine Ketones Urine Blood Urine Nitrite Urine Bilirubin Urine Urobilinogen Ur Leukocyte Esterase Urine RBC Urine WBC Urine Bacteria Urine HCG, Qual 08/07/17 08/07/17 08/08/17 22:36 23:40 00:30 WBC RBC Hgb Hct MCV MCH MCHC RDW Plt Count MPV Neutrophils % Neutrophils % (Manual) Band Neutrophils % Lymphocytes % Lymphocytes % (Manual) Monocytes % Monocytes % (Manual) Eosinophils % Basophils % Platelet Estimate Platelet Comment Anticoagulation Therapy Puncture Site ABG pH ABG pCO2 at Pt Temp ABG pO2 at Pt Temp ABG HCO3 ABG O2 Sat (Measured) ABG O2 Content ABG Base Excess Atul Test Carboxyhemoglobin Methemoglobin O2 Delivery Device Oxygen Flow Rate Vent Mode Vent Rate Mechanical Rate Pressure Support Vent Sodium 137 Potassium 3.6 Chloride 104 Carbon Dioxide 14 L Anion Gap 19 H BUN 31 H Creatinine 1.2 H Creat Clearance w eGFR 47.95 POC Glucometer 201.01306 Random Glucose 163 H Lactic Acid Calcium 8.3 L Phosphorus Magnesium Total Bilirubin 0.5 D AST 14 L ALT 15 Alkaline Phosphatase 104 Creatine Kinase 126 Troponin I < 0.02 Total Protein 6.7 Albumin 3.4 Total Amylase 32 Urine Color Yellow Urine Appearance Clear Urine pH 5.0 Ur Specific Lyles 1.015 Urine Protein 2+ H Urine Glucose (UA) 2+ H Urine Ketones 4+ H Urine Blood 2+ H Urine Nitrite Negative Urine Bilirubin 1+ H Urine Urobilinogen 0.2 Ur Leukocyte Esterase Negative Urine RBC 4-8 Urine WBC 0-2 Urine Bacteria Few Urine HCG, Qual Negative 08/08/17 08/08/17 08/08/17 00:38 00:50 02:17 WBC 32.9 H* RBC 4.29 Hgb 12.4 D Hct 37.5 D MCV 87.4 MCH 28.9 MCHC 33.0 RDW 14.4 Plt Count 356 D MPV 8.8 Neutrophils % Neutrophils % (Manual) Band Neutrophils % Lymphocytes % Lymphocytes % (Manual) Monocytes % Monocytes % (Manual) Eosinophils % Basophils % Platelet Estimate Platelet Comment Anticoagulation Therapy Puncture Site ABG pH ABG pCO2 at Pt Temp ABG pO2 at Pt Temp ABG HCO3 ABG O2 Sat (Measured) ABG O2 Content ABG Base Excess Atul Test Carboxyhemoglobin Methemoglobin O2 Delivery Device Oxygen Flow Rate Vent Mode Vent Rate Mechanical Rate Pressure Support Vent Sodium Potassium Chloride Carbon Dioxide Anion Gap BUN Creatinine Creat Clearance w eGFR POC Glucometer 173.38902 137.01997 Random Glucose Lactic Acid Calcium Phosphorus Magnesium Total Bilirubin AST ALT Alkaline Phosphatase Creatine Kinase Troponin I Total Protein Albumin Total Amylase Urine Color Urine Appearance Urine pH Ur Specific Lyles Urine Protein Urine Glucose (UA) Urine Ketones Urine Blood Urine Nitrite Urine Bilirubin Urine Urobilinogen Ur Leukocyte Esterase Urine RBC Urine WBC Urine Bacteria Urine HCG, Qual 08/08/17 08/08/17 08/08/17 03:05 04:09 05:00 WBC RBC Hgb Hct MCV MCH MCHC RDW Plt Count MPV Neutrophils % Neutrophils % (Manual) Band Neutrophils % Lymphocytes % Lymphocytes % (Manual) Monocytes % Monocytes % (Manual) Eosinophils % Basophils % Platelet Estimate Platelet Comment Anticoagulation Therapy Puncture Site ABG pH ABG pCO2 at Pt Temp ABG pO2 at Pt Temp ABG HCO3 ABG O2 Sat (Measured) ABG O2 Content ABG Base Excess Atul Test Carboxyhemoglobin Methemoglobin O2 Delivery Device Oxygen Flow Rate Vent Mode Vent Rate Mechanical Rate Pressure Support Vent Sodium 136 Potassium 3.9 Chloride 109 H Carbon Dioxide 16 L Anion Gap 11 BUN 26 H Creatinine 1.1 H Creat Clearance w eGFR POC Glucometer 162.96503 196.18658 Random Glucose 179 H Lactic Acid Calcium 7.0 L Phosphorus Magnesium Total Bilirubin AST ALT Alkaline Phosphatase Creatine Kinase Troponin I Total Protein Albumin Total Amylase Urine Color Urine Appearance Urine pH Ur Specific Lyles Urine Protein Urine Glucose (UA) Urine Ketones Urine Blood Urine Nitrite Urine Bilirubin Urine Urobilinogen Ur Leukocyte Esterase Urine RBC Urine WBC Urine Bacteria Urine HCG, Qual 08/08/17 08/08/17 08/08/17 05:00 05:05 06:28 WBC RBC Hgb Hct MCV MCH MCHC RDW Plt Count MPV Neutrophils % Neutrophils % (Manual) Band Neutrophils % Lymphocytes % Lymphocytes % (Manual) Monocytes % Monocytes % (Manual) Eosinophils % Basophils % Platelet Estimate Platelet Comment Anticoagulation Therapy Puncture Site Right radial ABG pH 7.35 ABG pCO2 at Pt Temp 30.5 L D ABG pO2 at Pt Temp 101.0 H D ABG HCO3 16.5 L ABG O2 Sat (Measured) 98.2 ABG O2 Content 14.3 L ABG Base Excess -7.7 L Atul Test Positive Carboxyhemoglobin Methemoglobin O2 Delivery Device Room air Oxygen Flow Rate No Result Required. Vent Mode Vent Rate Mechanical Rate Pressure Support Vent Sodium Potassium Chloride Carbon Dioxide Anion Gap BUN Creatinine Creat Clearance w eGFR POC Glucometer 194.83229 Random Glucose Lactic Acid 0.6 Calcium Phosphorus Magnesium Total Bilirubin AST ALT Alkaline Phosphatase Creatine Kinase Troponin I Total Protein Albumin Total Amylase Urine Color Urine Appearance Urine pH Ur Specific Lyles Urine Protein Urine Glucose (UA) Urine Ketones Urine Blood Urine Nitrite Urine Bilirubin Urine Urobilinogen Ur Leukocyte Esterase Urine RBC Urine WBC Urine Bacteria Urine HCG, Qual 08/08/17 08/08/17 08/08/17 06:28 07:50 07:50 WBC 27.1 H RBC 3.72 Hgb 10.6 L D Hct 32.6 MCV 87.6 MCH 28.5 MCHC 32.5 RDW 14.4 Plt Count 266 D MPV 8.7 Neutrophils % 81.4 D Neutrophils % (Manual) Band Neutrophils % Lymphocytes % 12.4 D Lymphocytes % (Manual) Monocytes % 5.7 Monocytes % (Manual) Eosinophils % 0.0 D Basophils % 0.5 Platelet Estimate Platelet Comment Anticoagulation Therapy Puncture Site ABG pH ABG pCO2 at Pt Temp ABG pO2 at Pt Temp ABG HCO3 ABG O2 Sat (Measured) ABG O2 Content ABG Base Excess Atul Test Carboxyhemoglobin Methemoglobin O2 Delivery Device Oxygen Flow Rate Vent Mode Vent Rate Mechanical Rate Pressure Support Vent Sodium 137 Potassium 3.4 L Chloride 110 H Carbon Dioxide 20 L Anion Gap 7 L BUN 22 H Creatinine 1.1 H Creat Clearance w eGFR POC Glucometer 221.64644 Random Glucose 124 H Lactic Acid Calcium 7.1 L Phosphorus Magnesium Total Bilirubin AST ALT Alkaline Phosphatase Creatine Kinase Troponin I Total Protein Albumin Total Amylase Urine Color Urine Appearance Urine pH Ur Specific Lyles Urine Protein Urine Glucose (UA) Urine Ketones Urine Blood Urine Nitrite Urine Bilirubin Urine Urobilinogen Ur Leukocyte Esterase Urine RBC Urine WBC Urine Bacteria Urine HCG, Qual 08/08/17 08/08/17 08:36 09:57 WBC RBC Hgb Hct MCV MCH MCHC RDW Plt Count MPV Neutrophils % Neutrophils % (Manual) Band Neutrophils % Lymphocytes % Lymphocytes % (Manual) Monocytes % Monocytes % (Manual) Eosinophils % Basophils % Platelet Estimate Platelet Comment Anticoagulation Therapy Puncture Site ABG pH ABG pCO2 at Pt Temp ABG pO2 at Pt Temp ABG HCO3 ABG O2 Sat (Measured) ABG O2 Content ABG Base Excess Atul Test Carboxyhemoglobin Methemoglobin O2 Delivery Device Oxygen Flow Rate Vent Mode Vent Rate Mechanical Rate Pressure Support Vent Sodium Potassium Chloride Carbon Dioxide Anion Gap BUN Creatinine Creat Clearance w eGFR POC Glucometer 98.00217 73.95190 Random Glucose Lactic Acid Calcium Phosphorus Magnesium Total Bilirubin AST ALT Alkaline Phosphatase Creatine Kinase Troponin I Total Protein Albumin Total Amylase Urine Color Urine Appearance Urine pH Ur Specific Lyles Urine Protein Urine Glucose (UA) Urine Ketones Urine Blood Urine Nitrite Urine Bilirubin Urine Urobilinogen Ur Leukocyte Esterase Urine RBC Urine WBC Urine Bacteria Urine HCG, Qual Problem List - Problems (1) Diabetic keto-acidosis Code(s): E13.10 - OTH DIABETES MELLITUS WITH KETOACIDOSIS WITHOUT COMA Qualifiers: Diabetes mellitus type: type 1 Diabetes mellitus complication detail: without coma Qualified Code(s): E10.10 - Type 1 diabetes mellitus with ketoacidosis without coma (2) Hypokalemia Code(s): E87.6 - HYPOKALEMIA (3) Hyponatremia Code(s): E87.1 - HYPO-OSMOLALITY AND HYPONATREMIA (4) DVT prophylaxis Code(s): HIF0938 - (5) Diabetic gastroparesis associated with type 1 diabetes mellitus Code(s): E10.43 - TYPE 1 DIABETES W DIABETIC AUTONOMIC (POLY)NEUROPATHY; K31.84 - GASTROPARESIS Assessment/Plan Resolving DKA IDDM DM gastroparesis Chronic back pain 2/2 herniated disc Vomiting and loose stools x2 days Non-compliance with medication R/O intra-abdominal infection PLAN: -D/C Insulin drip and start SQ Insulin -Monitor blood sugars -Monitor electrolytes -Cont IVF -Follow cultures -Trend lactate -ECG and troponin -Zofran prn for nausea -Pain med for chronic back pain -Cont PPI -DVT prophylaxis -Floor Dr Otero Critical care time spent in reviewing chart, evaluating patient and formulating plan - 36 minutes.
[2017-08-08] MEDS ORDERED: DEXTROSE 50%-WATER 25 GM/50 ML DISP.SYRIN ONE (13:13)
--- NOTE | 2017-08-08 13:31 | PN ---
Physical Exam: SUBJECTIVE: Patient seen and examined No acute events overnight. Patient feels better this AM. Patient still has abdominal discomfort. Denies chest pain, SOB. OBJECTIVE: Vital Signs Period Temp Pulse Resp BP Sys/Rapp Pulse Ox Last 24 Hr 98.2 F-99 F 73-111 16-27 105-163/56-78 98-100 GENERAL: The patient is awake, alert, and fully oriented, in no acute distress. HEAD: Normal with no signs of trauma. EYES: PERRL, extraocular movements intact, sclera anicteric, conjunctiva clear. No ptosis. ENT: Ears normal, nares patent, oropharynx clear without exudates, moist mucous membranes. NECK: Trachea midline, full range of motion, supple. LUNGS: Breath sounds equal, clear to auscultation bilaterally, no wheezes, no crackles, no accessory muscle use. HEART: Regular rate and rhythm, S1, S2 without murmur, rub or gallop. ABDOMEN: Soft, +TTP diffusely, nondistended, normoactive bowel sounds, no guarding, no rebound, no hepatosplenomegaly, no masses. EXTREMITIES: 2+ pulses, warm, well-perfused, no edema. +Chronic back pain NEUROLOGICAL: Cranial nerves II through XII grossly intact. Normal speech, gait not observed. PSYCH: Normal mood, normal affect. SKIN: Warm, dry, normal turgor, no rashes or lesions noted Laboratory Results - last 24 hr 18 08/07/17 08/07/17 11:34 14:34 16:24 WBC RBC Hgb Hct MCV MCH MCHC RDW Plt Count MPV Neutrophils % Neutrophils % (Manual) Band Neutrophils % Lymphocytes % Lymphocytes % (Manual) Monocytes % Monocytes % (Manual) Eosinophils % Basophils % Platelet Estimate Platelet Comment Anticoagulation Therapy Puncture Site ABG pH ABG pCO2 at Pt Temp ABG pO2 at Pt Temp ABG HCO3 ABG O2 Sat (Measured) ABG O2 Content ABG Base Excess Atul Test Carboxyhemoglobin Methemoglobin O2 Delivery Device Oxygen Flow Rate Vent Mode Vent Rate Mechanical Rate Pressure Support Vent Sodium Potassium Chloride Carbon Dioxide Anion Gap BUN Creatinine Creat Clearance w eGFR POC Glucometer > 400 > 400 > 400 Random Glucose Lactic Acid Calcium Phosphorus Magnesium Total Bilirubin AST ALT Alkaline Phosphatase Creatine Kinase Troponin I Total Protein Albumin Total Amylase Urine Color Urine Appearance Urine pH Ur Specific [place] Urine Protein Urine Glucose (UA) Urine Ketones Urine Blood Urine Nitrite Urine Bilirubin Urine Urobilinogen Ur Leukocyte Esterase Urine RBC Urine WBC Urine Bacteria Urine HCG, Qual 08/07/17 08/07/17 08/07/17 16:25 18:38 19:23 WBC RBC Hgb Hct MCV MCH MCHC RDW Plt Count MPV Neutrophils % Neutrophils % (Manual) Band Neutrophils % Lymphocytes % Lymphocytes % (Manual) Monocytes % Monocytes % (Manual) Eosinophils % Basophils % Platelet Estimate Platelet Comment Anticoagulation Therapy Puncture Site ABG pH ABG pCO2 at Pt Temp ABG pO2 at Pt Temp ABG HCO3 ABG O2 Sat (Measured) ABG O2 Content ABG Base Excess Atul Test Carboxyhemoglobin Methemoglobin O2 Delivery Device Oxygen Flow Rate Vent Mode Vent Rate Mechanical Rate Pressure Support Vent Sodium 125 L Potassium 4.0 Chloride 96 L Carbon Dioxide 8 L D Anion Gap 21 H BUN 36 H Creatinine 1.4 H Creat Clearance w eGFR POC Glucometer > 400 > 400 Random Glucose 552 H* Lactic Acid Calcium 8.2 L Phosphorus Magnesium Total Bilirubin AST ALT Alkaline Phosphatase Creatine Kinase Troponin I Total Protein Albumin Total Amylase Urine Color Urine Appearance Urine pH Ur Specific [place] Urine Protein Urine Glucose (UA) Urine Ketones Urine Blood Urine Nitrite Urine Bilirubin Urine Urobilinogen Ur Leukocyte Esterase Urine RBC Urine WBC Urine Bacteria Urine HCG, Qual 08/07/17 08/07/17 08/07/17 19:45 19:45 19:45 WBC 31.8 H* D RBC 4.42 Hgb 12.9 Hct 38.3 MCV 86.7 MCH 29.2 MCHC 33.7 RDW 13.7 Plt Count 406 MPV 9.1 Neutrophils % No Result Required. Neutrophils % (Manual) 93.0 H* Band Neutrophils % 3.0 Lymphocytes % No Result Required. Lymphocytes % (Manual) 3.0 L Monocytes % Monocytes % (Manual) 1 L Eosinophils % Basophils % Platelet Estimate Adequate Platelet Comment Few large platelets Anticoagulation Therapy No Result Required. Puncture Site No Result Required. ABG pH 7.25 L ABG pCO2 at Pt Temp 13.5 L* D ABG pO2 at Pt Temp 164.0 H* ABG HCO3 5.7 L* ABG O2 Sat (Measured) 98.6 ABG O2 Content 17.1 ABG Base Excess -20.3 L* Atul Test Positive Carboxyhemoglobin Methemoglobin O2 Delivery Device No Result Required. Oxygen Flow Rate No Result Required. Vent Mode No Result Required. Vent Rate No Result Required. Mechanical Rate No Result Required. Pressure Support Vent No Result Required. Sodium 130 L Potassium 3.0 L D Chloride 104 Carbon Dioxide 6 L D Anion Gap 20 H BUN 33 H Creatinine 1.5 H Creat Clearance w eGFR POC Glucometer Random Glucose 368 H* D Lactic Acid Calcium 8.2 L Phosphorus 1.2 L D Magnesium 2.0 Total Bilirubin AST ALT Alkaline Phosphatase Creatine Kinase Troponin I Total Protein Albumin Total Amylase Urine Color Urine Appearance Urine pH Ur Specific [place] Urine Protein Urine Glucose (UA) Urine Ketones Urine Blood Urine Nitrite Urine Bilirubin Urine Urobilinogen Ur Leukocyte Esterase Urine RBC Urine WBC Urine Bacteria Urine HCG, Qual 08/07/17 08/07/17 08/07/17 19:45 19:45 20:37 WBC RBC Hgb Hct MCV MCH MCHC RDW Plt Count MPV Neutrophils % Neutrophils % (Manual) Band Neutrophils % Lymphocytes % Lymphocytes % (Manual) Monocytes % Monocytes % (Manual) Eosinophils % Basophils % Platelet Estimate Platelet Comment Anticoagulation Therapy Puncture Site ABG pH ABG pCO2 at Pt Temp ABG pO2 at Pt Temp ABG HCO3 ABG O2 Sat (Measured) ABG O2 Content ABG Base Excess Atul Test Carboxyhemoglobin 1.8 Methemoglobin 1.3 O2 Delivery Device Oxygen Flow Rate Vent Mode Vent Rate Mechanical Rate Pressure Support Vent Sodium Potassium Chloride Carbon Dioxide Anion Gap BUN Creatinine Creat Clearance w eGFR POC Glucometer 262.81489 Random Glucose Lactic Acid 1.2 Calcium Phosphorus Magnesium Total Bilirubin AST ALT Alkaline Phosphatase Creatine Kinase Troponin I Total Protein Albumin Total Amylase Urine Color Urine Appearance Urine pH Ur Specific [place] Urine Protein Urine Glucose (UA) Urine Ketones Urine Blood Urine Nitrite Urine Bilirubin Urine Urobilinogen Ur Leukocyte Esterase Urine RBC Urine WBC Urine Bacteria Urine HCG, Qual 08/07/17 08/07/17 08/07/17 21:41 22:30 22:36 WBC RBC Hgb Hct MCV MCH MCHC RDW Plt Count MPV Neutrophils % Neutrophils % (Manual) Band Neutrophils % Lymphocytes % Lymphocytes % (Manual) Monocytes % Monocytes % (Manual) Eosinophils % Basophils % Platelet Estimate Platelet Comment Anticoagulation Therapy Puncture Site ABG pH ABG pCO2 at Pt Temp ABG pO2 at Pt Temp ABG HCO3 ABG O2 Sat (Measured) ABG O2 Content ABG Base Excess Atul Test Carboxyhemoglobin Methemoglobin O2 Delivery Device Oxygen Flow Rate Vent Mode Vent Rate Mechanical Rate Pressure Support Vent Sodium Potassium Chloride Carbon Dioxide Anion Gap BUN Creatinine Creat Clearance w eGFR POC Glucometer 169.21988 171.61419 Random Glucose Lactic Acid Calcium Phosphorus Magnesium Total Bilirubin AST ALT Alkaline Phosphatase Creatine Kinase Troponin I Total Protein Albumin Total Amylase Urine Color Yellow Urine Appearance Clear Urine pH 5.0 Ur Specific [place] 1.015 Urine Protein 2+ H Urine Glucose (UA) 2+ H Urine Ketones 4+ H Urine Blood 2+ H Urine Nitrite Negative Urine Bilirubin 1+ H Urine Urobilinogen 0.2 Ur Leukocyte Esterase Negative Urine RBC 4-8 Urine WBC 0-2 Urine Bacteria Few Urine HCG, Qual Negative 08/07/17 08/08/17 08/08/17 23:40 00:30 00:38 WBC RBC Hgb Hct MCV MCH MCHC RDW Plt Count MPV Neutrophils % Neutrophils % (Manual) Band Neutrophils % Lymphocytes % Lymphocytes % (Manual) Monocytes % Monocytes % (Manual) Eosinophils % Basophils % Platelet Estimate Platelet Comment Anticoagulation Therapy Puncture Site ABG pH ABG pCO2 at Pt Temp ABG pO2 at Pt Temp ABG HCO3 ABG O2 Sat (Measured) ABG O2 Content ABG Base Excess Atul Test Carboxyhemoglobin Methemoglobin O2 Delivery Device Oxygen Flow Rate Vent Mode Vent Rate Mechanical Rate Pressure Support Vent Sodium 137 Potassium 3.6 Chloride 104 Carbon Dioxide 14 L Anion Gap 19 H BUN 31 H Creatinine 1.2 H Creat Clearance w eGFR 47.95 POC Glucometer 201.95533 173.38527 Random Glucose 163 H Lactic Acid Calcium 8.3 L Phosphorus Magnesium Total Bilirubin 0.5 D AST 14 L ALT 15 Alkaline Phosphatase 104 Creatine Kinase 126 Troponin I < 0.02 Total Protein 6.7 Albumin 3.4 Total Amylase 32 Urine Color Urine Appearance Urine pH Ur Specific [place] Urine Protein Urine Glucose (UA) Urine Ketones Urine Blood Urine Nitrite Urine Bilirubin Urine Urobilinogen Ur Leukocyte Esterase Urine RBC Urine WBC Urine Bacteria Urine HCG, Qual 08/08/17 08/08/17 08/08/17 00:50 02:17 03:05 WBC 32.9 H* RBC 4.29 Hgb 12.4 D Hct 37.5 D MCV 87.4 MCH 28.9 MCHC 33.0 RDW 14.4 Plt Count 356 D MPV 8.8 Neutrophils % Neutrophils % (Manual) Band Neutrophils % Lymphocytes % Lymphocytes % (Manual) Monocytes % Monocytes % (Manual) Eosinophils % Basophils % Platelet Estimate Platelet Comment Anticoagulation Therapy Puncture Site ABG pH ABG pCO2 at Pt Temp ABG pO2 at Pt Temp ABG HCO3 ABG O2 Sat (Measured) ABG O2 Content ABG Base Excess Atul Test Carboxyhemoglobin Methemoglobin O2 Delivery Device Oxygen Flow Rate Vent Mode Vent Rate Mechanical Rate Pressure Support Vent Sodium Potassium Chloride Carbon Dioxide Anion Gap BUN Creatinine Creat Clearance w eGFR POC Glucometer 137.77975 162.50274 Random Glucose Lactic Acid Calcium Phosphorus Magnesium Total Bilirubin AST ALT Alkaline Phosphatase Creatine Kinase Troponin I Total Protein Albumin Total Amylase Urine Color Urine Appearance Urine pH Ur Specific [place] Urine Protein Urine Glucose (UA) Urine Ketones Urine Blood Urine Nitrite Urine Bilirubin Urine Urobilinogen Ur Leukocyte Esterase Urine RBC Urine WBC Urine Bacteria Urine HCG, Qual 08/08/17 08/08/17 08/08/17 04:09 05:00 05:00 WBC RBC Hgb Hct MCV MCH MCHC RDW Plt Count MPV Neutrophils % Neutrophils % (Manual) Band Neutrophils % Lymphocytes % Lymphocytes % (Manual) Monocytes % Monocytes % (Manual) Eosinophils % Basophils % Platelet Estimate Platelet Comment Anticoagulation Therapy Puncture Site ABG pH ABG pCO2 at Pt Temp ABG pO2 at Pt Temp ABG HCO3 ABG O2 Sat (Measured) ABG O2 Content ABG Base Excess Atul Test Carboxyhemoglobin Methemoglobin O2 Delivery Device Oxygen Flow Rate Vent Mode Vent Rate Mechanical Rate Pressure Support Vent Sodium 136 Potassium 3.9 Chloride 109 H Carbon Dioxide 16 L Anion Gap 11 BUN 26 H Creatinine 1.1 H Creat Clearance w eGFR POC Glucometer 196.53454 Random Glucose 179 H Lactic Acid 0.6 Calcium 7.0 L Phosphorus Magnesium Total Bilirubin AST ALT Alkaline Phosphatase Creatine Kinase Troponin I Total Protein Albumin Total Amylase Urine Color Urine Appearance Urine pH Ur Specific [place] Urine Protein Urine Glucose (UA) Urine Ketones Urine Blood Urine Nitrite Urine Bilirubin Urine Urobilinogen Ur Leukocyte Esterase Urine RBC Urine WBC Urine Bacteria Urine HCG, Qual 08/08/17 08/08/17 08/08/17 05:05 06:28 06:28 WBC RBC Hgb Hct MCV MCH MCHC RDW Plt Count MPV Neutrophils % Neutrophils % (Manual) Band Neutrophils % Lymphocytes % Lymphocytes % (Manual) Monocytes % Monocytes % (Manual) Eosinophils % Basophils % Platelet Estimate Platelet Comment Anticoagulation Therapy Puncture Site Right radial ABG pH 7.35 ABG pCO2 at Pt Temp 30.5 L D ABG pO2 at Pt Temp 101.0 H D ABG HCO3 16.5 L ABG O2 Sat (Measured) 98.2 ABG O2 Content 14.3 L ABG Base Excess -7.7 L Atul Test Positive Carboxyhemoglobin Methemoglobin O2 Delivery Device Room air Oxygen Flow Rate No Result Required. Vent Mode Vent Rate Mechanical Rate Pressure Support Vent Sodium Potassium Chloride Carbon Dioxide Anion Gap BUN Creatinine Creat Clearance w eGFR POC Glucometer 194.30754 221.46758 Random Glucose Lactic Acid Calcium Phosphorus Magnesium Total Bilirubin AST ALT Alkaline Phosphatase Creatine Kinase Troponin I Total Protein Albumin Total Amylase Urine Color Urine Appearance Urine pH Ur Specific [place] Urine Protein Urine Glucose (UA) Urine Ketones Urine Blood Urine Nitrite Urine Bilirubin Urine Urobilinogen Ur Leukocyte Esterase Urine RBC Urine WBC Urine Bacteria Urine HCG, Qual 08/08/17 08/08/17 08/08/17 07:50 07:50 08:36 WBC 27.1 H RBC 3.72 Hgb 10.6 L D Hct 32.6 MCV 87.6 MCH 28.5 MCHC 32.5 RDW 14.4 Plt Count 266 D MPV 8.7 Neutrophils % 81.4 D Neutrophils % (Manual) Band Neutrophils % Lymphocytes % 12.4 D Lymphocytes % (Manual) Monocytes % 5.7 Monocytes % (Manual) Eosinophils % 0.0 D Basophils % 0.5 Platelet Estimate Platelet Comment Anticoagulation Therapy Puncture Site ABG pH ABG pCO2 at Pt Temp ABG pO2 at Pt Temp ABG HCO3 ABG O2 Sat (Measured) ABG O2 Content ABG Base Excess Atul Test Carboxyhemoglobin Methemoglobin O2 Delivery Device Oxygen Flow Rate Vent Mode Vent Rate Mechanical Rate Pressure Support Vent Sodium 137 Potassium 3.4 L Chloride 110 H Carbon Dioxide 20 L Anion Gap 7 L BUN 22 H Creatinine 1.1 H Creat Clearance w eGFR POC Glucometer 98.29444 Random Glucose 124 H Lactic Acid Calcium 7.1 L Phosphorus Magnesium Total Bilirubin AST ALT Alkaline Phosphatase Creatine Kinase Troponin I Total Protein Albumin Total Amylase Urine Color Urine Appearance Urine pH Ur Specific [place] Urine Protein Urine Glucose (UA) Urine Ketones Urine Blood Urine Nitrite Urine Bilirubin Urine Urobilinogen Ur Leukocyte Esterase Urine RBC Urine WBC Urine Bacteria Urine HCG, Qual 08/08/17 08/08/17 09:57 11:53 WBC RBC Hgb Hct MCV MCH MCHC RDW Plt Count MPV Neutrophils % Neutrophils % (Manual) Band Neutrophils % Lymphocytes % Lymphocytes % (Manual) Monocytes % Monocytes % (Manual) Eosinophils % Basophils % Platelet Estimate Platelet Comment Anticoagulation Therapy Puncture Site ABG pH ABG pCO2 at Pt Temp ABG pO2 at Pt Temp ABG HCO3 ABG O2 Sat (Measured) ABG O2 Content ABG Base Excess Atul Test Carboxyhemoglobin Methemoglobin O2 Delivery Device Oxygen Flow Rate Vent Mode Vent Rate Mechanical Rate Pressure Support Vent Sodium Potassium Chloride Carbon Dioxide Anion Gap BUN Creatinine Creat Clearance w eGFR POC Glucometer 73.02776 56.11720 Random Glucose Lactic Acid Calcium Phosphorus Magnesium Total Bilirubin AST ALT Alkaline Phosphatase Creatine Kinase Troponin I Total Protein Albumin Total Amylase Urine Color Urine Appearance Urine pH Ur Specific [place] Urine Protein Urine Glucose (UA) Urine Ketones Urine Blood Urine Nitrite Urine Bilirubin Urine Urobilinogen Ur Leukocyte Esterase Urine RBC Urine WBC Urine Bacteria Urine HCG, Qual Active Medications Generic Name Dose Route Start Last Admin Trade Name Freq PRN Reason Stop Dose Admin Acetaminophen 650 mg 08/08/17 00:12 08/08/17 00:44 Tylenol - PO 08/11/17 00:11 650 mg Q4H PRN Administration PAIN LEVEL 6-10 Chlorhexidine Gluconate 1 applic 08/07/17 22:45 Hibiclens For Decolonization - TP [facility] Enoxaparin Sodium 40 mg 08/08/17 10:00 08/08/17 10:19 Lovenox - SQ 40 mg DAILY [facility] Administration Hydromorphone HCl 0.5 mg 08/08/17 00:50 08/08/17 10:12 Dilaudid Injection - IVPUSH 0.5 mg Q4H PRN Administration BACK PAIN Piperacillin Sod/Tazobactam 50 mls @ 100 mls/hr 08/08/17 10:00 08/08/17 10:49 Sod 3.375 gm/ Dextrose IVPB 08/09/17 09:59 100 mls/hr Q8H-IV [facility] Administration Potassium Chloride/Dextrose/Sod Cl 10 meq in 1,000 mls @ 83 mls/hr 08/08/17 11 :30 08/08/17 11:54 D5-1/2ns+10 Meq Kcl - IV 83 mls/hr ASDIR [facility] Administration Insulin Aspart 1 vial 08/08/17 11:00 08/08/17 11:59 Novolog Vial Sliding Scale - SQ Not Given ACHS [facility] Protocol Insulin Detemir 12 units 08/08/17 22:00 Levemir Vial SQ BID@0700,2200 [facility] Mupirocin 1 applic 08/07/17 22:45 08/08/17 10:20 Bactroban Ointment (For Decolonization) - NS 08/12/17 21:59 1 applic BID [facility] Administration Ondansetron HCl 4 mg 08/07/17 20:38 08/08/17 13:05 Zofran Injection IVPUSH 4 mg Q6H PRN Administration NAUSEA AND/OR VOMITING Oxycodone HCl 10 mg 08/08/17 00:12 08/08/17 00:41 Roxicodone - PO 10 mg Q4H PRN Administration PAIN LEVEL 6-10 Piperacillin/Tazobactam/Dextrose 3.375 gm 08/08/17 10:00 Zosyn 3.375gm Ivpb (Premix) IVPB Q8H-IV [facility] ASSESSMENT/PLAN: 47 year old F with pmh of DM, Gastroperesis, and chronic back pain presented with N/V/abdominal discomfort admitted to ICU for DKA. #Endocrine DKA DM Gastroperesis N/V/Diarrhea -pain control with oxycodone, dilaudid prn -Zosyn -ISS achs -Insulin levemir 12 units BID -Discontinue insulin drip -BGM achs #FEN/GI -D5 1/2 NS + 10 meq KCl -wnl -Diabetic Diet #PPx -lovenox 40 mg sq daily #Dispo: Can transfer to M/S Visit type - Emergency Visit Emergency Visit: Yes ED Registration Date: 08/07/17 Care time: The patient presented to the Emergency Department on the above date and was hospitalized for further evaluation of their emergent condition. - New Patient This patient is new to me today: Yes Date on this admission: 08/08/17 - Critical Care Critical Care patient: Yes Total Critical Care Time (in minutes): 35 Critical Care Statement: The care of this patient involved high complexity decision making to prevent further life threatening deterioration of the patient 's condition and/or to evaluate & treat vital organ system(s) failure or risk of failure.
[2017-08-08 15:20] LABS: ANION GAP 8 (8-16); BLOOD UREA NITROGEN 17 mg/dL (7-18); CALCIUM 7.5 mg/dL (8.5-10.1); CHLORIDE 110 mmol/L (98-107); CO2 21 mmol/L (21-32); CREATININE 0.9 mg/dL (0.55-1.02); SODIUM 139 mmol/L (136-145)
[2017-08-08 15:23] LABS: GLUCOSE,RANDOM 43 mg/dL (74-106); POTASSIUM 2.9 mmol/L (3.5-5.1)
[2017-08-08] MEDS ORDERED: POTASSIUM CHLORIDE TABS 20 MEQ TABLET.ER (FP) PO ONE (16:30)
--- NOTE | 2017-08-08 16:32 | CON.ID ---
Consult Consult Specialty:: infectious diseases Reason for Consultation:: leukocytosis - History of Present Illness Chief Complaint: nausea vomiting,pain History of Present Illness: 47 y/o woman with a past medical history of IDDM (non-compliance), Gastroparesis , Chronic Back Pain. admitted with with c/o excessive vomiting and loose stools. . Patient denies fever, chills, cough, SOB, CP, constipation, dysuria. currently when asked how she feels she mentions that she feels very lousy pain is one of the main issues but patient looking comfortable patient was started on insulin drip as patient was found to have dka - History Source History Provided By: Patient Limitations to Obtaining History: No Limitations - Past Medical History EQUINE VET: Yes: Migraine Gastrointestinal: Yes: Other (Gastroparesis) ...LMP: 04/14/13 Musculoskeletal: Yes: Chronic low back pain Endocrine: Yes: Diabetes Mellitus Additional Medical History: dka in the past - Past Surgical History Past Surgical History: Yes: Cholecystectomy - Alcohol/Substance Use Hx Alcohol Use: No History of Substance Use: reports: None - Smoking History Smoking history: Current every day smoker Have you smoked in the past 12 months: Yes Aproximately how many cigarettes per day: 25 - Social History ADL: Independent History of Recent Travel: No Home Medications - Allergies Allergies/Adverse Reactions: Allergies Allergy/AdvReac Type Severity Reaction Status Date / Time No Known Allergies Allergy Verified 06/11/17 18:21 - Home Medications Home Medications: Ambulatory Orders Oxycodone HCl/Acetaminophen [Percocet 10-325 mg Tablet] 1 - 2 tab PO QID Insulin Sliding Scale [Novolog Vial Sliding Scale -] See Protocol SQ AC 30 Days units 12/07/15 Insulin Glargine,Hum.rec.anlog [Lantus Solostar PEN -] 10 units SQ HS 06/11/17 Ketorolac Tromethamine [Toradol] 10 mg PO Q6H PRN #20 tablet 06/16/17 Pantoprazole Sodium [Protonix -] 20 mg PO DAILY #30 tablet.ec 06/16/17 Atorvastatin Ca [Lipitor] 10 mg PO HS 08/07/17 Morphine *Immediate Release* [Msir -] 2 tab PO QID 08/07/17 Review of Systems - Review of Systems Constitutional: reports: Lethargy, Other Eyes: reports: No Symptoms HENT: reports: No Symptoms Neck: reports: No Symptoms Cardiovascular: reports: No Symptoms Respiratory: reports: No Symptoms Gastrointestinal: reports: Abdominal Pain, Nausea, Vomiting Genitourinary: reports: No Symptoms Musculoskeletal: reports: No Symptoms Integumentary: reports: No Symptoms Neurological: reports: No Symptoms Endocrine: reports: No Symptoms Hematology/Lymphatic: reports: No Symptoms Psychiatric: reports: No Symptoms Physical Exam Vital Signs: Vital Signs Temperature 98.3 F 08/08/17 14:00 Pulse Rate 72 08/08/17 14:00 Respiratory Rate 20 08/08/17 14:00 Blood Pressure 107/51 08/08/17 14:00 O2 Sat by Pulse Oximetry (%) 100 08/08/17 09:00 Constitutional: Yes: No Distress, Calm Eyes: Yes: Conjunctiva Clear Neck: Yes: Supple, Trachea Midline Cardiovascular: Yes: Regular Rate and Rhythm Respiratory: Yes: Regular, CTA Bilaterally Gastrointestinal: Yes: Normal Bowel Sounds, Soft, Tenderness. No: Tenderness, Rebound Musculoskeletal: Yes: WNL Extremities: Yes: WNL Neurological: Yes: Alert, Oriented Psychiatric: Yes: Alert, Oriented Labs: CBC, BMP 08/08/17 07:50 Imaging - Results Chest X-ray: Report Reviewed, Image Reviewed Ultrasound: Report Reviewed, Image Reviewed Assessment/Plan Problem List - Problems (1) Diabetic keto-acidosis Code(s): E13.10 - OTH DIABETES MELLITUS WITH KETOACIDOSIS WITHOUT COMA Qualifiers: Diabetes mellitus type: type 1 Diabetes mellitus complication detail: without coma Qualified Code(s): E10.10 - Type 1 diabetes mellitus with ketoacidosis without coma (2) Hypokalemia Code(s): E87.6 - HYPOKALEMIA (3) Hyponatremia Code(s): E87.1 - HYPO-OSMOLALITY AND HYPONATREMIA (4) DVT prophylaxis Code(s): THR9150 - (5) Diabetic gastroparesis associated with type 1 diabetes mellitus Code(s): E10.43 - TYPE 1 DIABETES W DIABETIC AUTONOMIC (POLY)NEUROPATHY; K31.84 - GASTROPARESIS Assessment/Plan continue abx for now will check wbc tomorrow suspicious that her wbc is reactive--still very high if stable will consider deescalating abx await for all cx reports rest as per icu hydration cc 40 min
[2017-08-08] MEDS: KCL 10 MEQ IVPB 10 MEQ/100 ML INFUS.BAG IVPB SCH ×3 (16:33→21:27)
[2017-08-08] MEDS: PIPERACILLIN/TAZOB 3.375 GM 3.375 GM in DEXTROSE 5%-WATER - 50 ML IVPB SCH (17:26)
[2017-08-08 17:31] LABS: ANION GAP 9 (8-16); CALCIUM 7.2 mg/dL (8.5-10.1); CHLORIDE 109 mmol/L (98-107); CO2 20 mmol/L (21-32); GLUCOSE,RANDOM 85 mg/dL (74-106); POTASSIUM 3.3 mmol/L (3.5-5.1); SODIUM 138 mmol/L (136-145)
[2017-08-08 17:48] LABS: BLOOD UREA NITROGEN 13 mg/dL (7-18); CREATININE 0.8 mg/dL (0.55-1.02)
[2017-08-08] MEDS ORDERED: ONDANSETRON 4 MG/2 ML VIAL IVPUSH ONE (17:52)
[2017-08-08] MEDS: CHLORHEXIDINE GLUCONATE 4% CLEANSER FOR DECOLONIZATION TP SCH (21:27)
[2017-08-08] MEDS: INSULIN DETEMIR 100 UNITS/ML MDV SQ SCH (21:35)
[2017-08-08] MEDS ORDERED: INSULIN DETEMIR 100 UNITS/ML MDV SQ SCH ×2 (22:00)
[2017-08-09] MEDS: PIPERACILLIN/TAZOB 3.375 GM 3.375 GM in DEXTROSE 5%-WATER - 50 ML IVPB SCH ×3 (01:03→18:09)
[2017-08-09] MEDS: ONDANSETRON 4 MG/2 ML VIAL IVPUSH PRN ×3 (01:24→21:55)
[2017-08-09] MEDS: INSULIN DETEMIR 100 UNITS/ML MDV SQ SCH ×2 (06:05→21:55)
[2017-08-09] MEDS: INSULIN SLIDING SCALE (NOVOLOG) 1 VIAL SQ SCH ×4 (06:05→21:54)
[2017-08-09] MEDS: HYDROmorphone HCL CARPU-JECT 1 MG/1 ML DISP.SYRIN IVPUSH PRN ×2 (06:06→12:38)
[2017-08-09 06:27] LABS: BASO % 0.1 % (0-2.0); EOS % 0.2 % (0-4.5); HEMATOCRIT 33.2 % (32.4-45.2); HEMOGLOBIN 11.3 GM/dL (10.7-15.3); LYMPH % 22.3 % (8-40); MCH 29.9 pg (25.7-33.7); MCHC 34.2 g/dl (32.0-36.0); MEAN CELL VOLUME 87.5 fl (80-96); MEAN PLT VOLUME 8.7 fl (7.5-11.1); MONO % 4.9 % (3.8-10.2); NEUT % 72.5 % (42.8-82.8); PLATELET COUNT 306 K/MM3 (134-434); RBC 3.79 M/mm3 (3.60-5.2); RDW 14.3 % (11.6-15.6); WHITE BLOOD COUNT 15.2 K/mm3 (4.0-10.0)
[2017-08-09 07:02] LABS: ANION GAP 8 (8-16); BLOOD UREA NITROGEN 7 mg/dL (7-18); CALCIUM 7.9 mg/dL (8.5-10.1); CHLORIDE 106 mmol/L (98-107); CO2 23 mmol/L (21-32); GLUCOSE,RANDOM 59 mg/dL (74-106); MAGNESIUM 2.1 mg/dL (1.8-2.4); POTASSIUM 3.4 mmol/L (3.5-5.1); SODIUM 137 mmol/L (136-145)
[2017-08-09 07:07] LABS: ALK PHOS 87 U/L (45-117); BILIRUBIN,TOTAL 0.5 mg/dL (0.2-1.0); CREATININE 0.7 mg/dL (0.55-1.02); SGOT/AST 16 U/L (15-37); SGPT/ALT 13 U/L (12-78); TOT PROT 6.1 g/dl (6.4-8.2)
[2017-08-09] MEDS ORDERED: POTASSIUM CHLORIDE TABS 20 MEQ TABLET.ER (FP) PO ONE (08:15)
[2017-08-09] MEDS: D5-1/2NS+10 MEQ KCL - 10 MEQ/1,000 ML INFUS.BAG IV SCH ×2 (08:30→11:30)
[2017-08-09] MEDS ORDERED: PT OWN MED DRAWER 7, Y5N ONE (08:32)
[2017-08-09] MEDS: ENOXAPARIN NA (PORCINE) 40 MG/0.4 ML DISP.SYRIN SQ SCH (09:11)
[2017-08-09] MEDS: MUPIROCIN 2% TOPICAL OINTMENT FOR DECOLONIZATION NS SCH ×2 (09:12→21:52)
[2017-08-09] MEDS: oxyCODONE HCL 5 MG TABLET PO PRN ×3 (10:26→23:20)
[2017-08-09] MEDS: ACETAMINOPHEN 325 MG TABLET (FP) PO PRN ×3 (10:29→23:20)
--- NOTE | 2017-08-09 14:30 | PN ---
Progress Note, Physician History of Present Illness: doing much better no complaints back pain wbc trending down - Current Medication List Current Medications: Active Medications Acetaminophen (Tylenol -) 650 mg PO Q4H PRN PRN Reason: PAIN LEVEL 6-10 Stop: 08/11/17 00:11 Last Admin: 08/09/17 10:29 Dose: 650 mg Chlorhexidine Gluconate (Hibiclens For Decolonization -) 1 applic TP HS [facility] Last Admin: 08/08/17 21:27 Dose: 1 applic Enoxaparin Sodium (Lovenox -) 40 mg SQ DAILY [facility] Last Admin: 08/09/17 09:11 Dose: 40 mg Hydromorphone HCl (Dilaudid Injection -) 0.5 mg IVPUSH Q4H PRN PRN Reason: BACK PAIN Last Admin: 08/09/17 12:38 Dose: 0.5 mg Potassium Chloride/Dextrose/Sod Cl (D5-1/2ns+10 Meq Kcl -) 10 meq in 1,000 mls @ 83 mls/hr IV ASDIR [facility] Last Admin: 08/09/17 11:30 Dose: Not Given Piperacillin Sod/Tazobactam (Sod 3.375 gm/ Dextrose) 50 mls @ 100 mls/hr IVPB Q8H-IV [facility] PRN Reason: Protocol Last Admin: 08/09/17 09:10 Dose: 100 mls/hr Insulin Aspart (Novolog Vial Sliding Scale -) 1 vial SQ ACHS [facility] PRN Reason: Protocol Last Admin: 08/09/17 12:25 Dose: 6 units Insulin Detemir (Levemir Vial) 12 units SQ BID@0700,2200 [facility] Last Admin: 08/09/17 06:05 Dose: Not Given Mupirocin (Bactroban Ointment (For Decolonization) -) 1 applic NS BID [facility] Stop: 08/12/17 21:59 Last Admin: 08/09/17 09:12 Dose: 1 applic Ondansetron HCl (Zofran Injection) 4 mg IVPUSH Q6H PRN PRN Reason: NAUSEA AND/OR VOMITING Last Admin: 08/09/17 08:33 Dose: 4 mg Oxycodone HCl (Roxicodone -) 10 mg PO Q4H PRN PRN Reason: PAIN LEVEL 6-10 Last Admin: 08/09/17 10:26 Dose: 10 mg - Objective Vital Signs: Vital Signs Temperature 98.9 F 08/09/17 10:00 Pulse Rate 70 08/09/17 12:00 Respiratory Rate 17 08/09/17 12:00 Blood Pressure 117/72 08/09/17 12:00 O2 Sat by Pulse Oximetry (%) 98 08/09/17 09:00 Constitutional: Yes: No Distress, Calm Cardiovascular: Yes: Regular Rate and Rhythm Respiratory: Yes: Regular, CTA Bilaterally Gastrointestinal: Yes: Normal Bowel Sounds, Soft Musculoskeletal: Yes: WNL Extremities: Yes: WNL Neurological: Yes: Alert, Oriented Psychiatric: Yes: Alert, Oriented Labs: CBC, BMP 08/09/17 06:15 08/09/17 06:15 Assessment/Plan Problem List - Problems (1) Diabetic keto-acidosis Code(s): E13.10 - OTH DIABETES MELLITUS WITH KETOACIDOSIS WITHOUT COMA Qualifiers: Diabetes mellitus type: type 1 Diabetes mellitus complication detail: without coma Qualified Code(s): E10.10 - Type 1 diabetes mellitus with ketoacidosis without coma (2) Hypokalemia Code(s): E87.6 - HYPOKALEMIA (3) Hyponatremia Code(s): E87.1 - HYPO-OSMOLALITY AND HYPONATREMIA (4) DVT prophylaxis Code(s): [id number] - (5) Diabetic gastroparesis associated with type 1 diabetes mellitus Code(s): E10.43 - TYPE 1 DIABETES W DIABETIC AUTONOMIC (POLY)NEUROPATHY; K31.84 - GASTROPARESIS 6 leukocytosis Assessment/Plan continue abx today wbc trending down will stop it tomorrow close watch on sugars rest as per icu/primary cc 40 min
--- NOTE | 2017-08-09 16:06 | PN ---
Physical Exam: SUBJECTIVE: Patient seen and examined at the bedside. Feeling better but still having intermittent episodes of vomiting. OBJECTIVE: Vital Signs Period Temp Pulse Resp BP Sys/Rapp Pulse Ox Last 24 Hr 97.9 F-98.9 F 64-78 14-20 92-119/60-76 98-99 GENERAL: The patient is awake, alert, and fully oriented, in no acute distress. HEAD: Normal with no signs of trauma. EYES: PERRL, extraocular movements intact, sclera anicteric, conjunctiva clear. No ptosis. ENT: Ears normal, nares patent, oropharynx clear without exudates, moist mucous membranes. NECK: Trachea midline, full range of motion, supple. LUNGS: Breath sounds equal HEART: Regular rate and rhythm, S1, S2 without murmur, rub or gallop. ABDOMEN: Soft, nontender, nondistended, normoactive bowel sounds, no guarding, no rebound, no hepatosplenomegaly, no masses. EXTREMITIES: 2+ pulses, warm, well-perfused, no edema. NEUROLOGICAL: Normal speech, gait not observed. PSYCH: Normal mood, normal affect. SKIN: Warm, dry, normal turgor, no rashes or lesions noted Laboratory Results - last 24 hr 08/08/17 08/08/17 08/08/17 13:43 16:00 16:54 WBC RBC Hgb Hct MCV MCH MCHC RDW Plt Count MPV Neutrophils % Lymphocytes % Monocytes % Eosinophils % Basophils % Sodium 138 Potassium 3.3 L Chloride 109 H Carbon Dioxide 20 L Anion Gap 9 BUN 13 Creatinine 0.8 Creat Clearance w eGFR POC Glucometer 275.40424 107.70584 Random Glucose 85 Calcium 7.2 L Magnesium Total Bilirubin AST ALT Alkaline Phosphatase Total Protein Albumin 08/08/17 08/09/17 08/09/17 21:33 05:30 06:15 WBC 15.2 H D RBC 3.79 Hgb 11.3 Hct 33.2 MCV 87.5 MCH 29.9 MCHC 34.2 RDW 14.3 Plt Count 306 MPV 8.7 Neutrophils % 72.5 Lymphocytes % 22.3 D Monocytes % 4.9 Eosinophils % 0.2 D Basophils % 0.1 Sodium Potassium Chloride Carbon Dioxide Anion Gap BUN Creatinine Creat Clearance w eGFR POC Glucometer 284.68982 68.32274 Random Glucose Calcium Magnesium Total Bilirubin AST ALT Alkaline Phosphatase Total Protein Albumin 08/09/17 08/09/17 08/09/17 06:15 06:17 11:12 WBC RBC Hgb Hct MCV MCH MCHC RDW Plt Count MPV Neutrophils % Lymphocytes % Monocytes % Eosinophils % Basophils % Sodium 137 Potassium 3.4 L Chloride 106 Carbon Dioxide 23 Anion Gap 8 BUN 7 Creatinine 0.7 Creat Clearance w eGFR > 60 POC Glucometer [phone] Random Glucose 59 L Calcium 7.9 L Magnesium 2.1 Total Bilirubin 0.5 AST 16 ALT 13 Alkaline Phosphatase 87 Total Protein 6.1 L Albumin 3.0 L Active Medications Generic Name Dose Route Start Last Admin Trade Name Freq PRN Reason Stop Dose Admin Acetaminophen 650 mg 08/08/17 00:12 08/09/17 10:29 Tylenol - PO 08/11/17 00:11 650 mg Q4H PRN Administration PAIN LEVEL 6-10 Chlorhexidine Gluconate 1 applic 08/07/17 22:45 08/08/17 21:27 Hibiclens For Decolonization - TP 1 applic HS [facility] Administration Enoxaparin Sodium 40 mg 08/08/17 10:00 08/09/17 09:11 Lovenox - SQ 40 mg DAILY [facility] Administration Hydromorphone HCl 0.5 mg 08/08/17 00:50 08/09/17 12:38 Dilaudid Injection - IVPUSH 0.5 mg Q4H PRN Administration BACK PAIN Potassium Chloride/Dextrose/Sod Cl 10 meq in 1,000 mls @ 83 mls/hr 08/08/17 11 :30 08/09/17 11:30 D5-1/2ns+10 Meq Kcl - IV Not Given ASDIR [facility] Piperacillin Sod/Tazobactam 50 mls @ 100 mls/hr 08/08/17 18:00 08/09/17 09:10 Sod 3.375 gm/ Dextrose IVPB 100 mls/hr Q8H-IV [facility] Administration Protocol Insulin Aspart 1 vial 08/08/17 11:00 08/09/17 12:25 Novolog Vial Sliding Scale - SQ 6 units ACHS [facility] Administration Protocol Insulin Detemir 12 units 08/08/17 22:00 08/09/17 06:05 Levemir Vial SQ Not Given BID@0700,2200 [facility] Mupirocin 1 applic 08/07/17 22:45 08/09/17 09:12 Bactroban Ointment (For Decolonization) - NS 08/12/17 21:59 1 applic BID [facility] Administration Ondansetron HCl 4 mg 08/07/17 20:38 08/09/17 08:33 Zofran Injection IVPUSH 4 mg Q6H PRN Administration NAUSEA AND/OR VOMITING Oxycodone HCl 10 mg 08/08/17 00:12 08/09/17 10:26 Roxicodone - PO 10 mg Q4H PRN Administration PAIN LEVEL 6-10 ASSESSMENT/PLAN: Patient is a 47 y/o woman with a past medical history of IDDM (non-compliance), Gastroparesis, Chronic Back Pain. Who presents to the ED c/o excessive vomiting and loose stools. Patient also reports severe back pain which she could not take her po pain meds, secondary to vomiting. Patient denies fever, chills, cough, SOB, CP, constipation, dysuria. She presents to [place] in DKA. Endocrine: DKA, resolving S/P Insulin drip, AG closed, serum glucose labile Now on d5 1/2 ns 10meq Replete K, follow labs Re-start home insulin Endocrinology follow up outpt RD follow up for non compliance ID: Leukocytosis Infectious vs Inflammatory Started on zosyn, ID following Blood cultures pending, prelim. ngtd As per ID, antbx to be likely d/c tomorrow Chronic Back Pain Given Dilaudid in ED Pain Mgmt f/u in outpatient Transition to PO Oxycodone F.E.N. Fluids: d5 1/2 10-meq Electrolytes: hypoK repleted, Nutrition: diabetic diet Prophylaxis: DVT: ambulatory GI: Protonix Disposition: full code Visit type - Emergency Visit Emergency Visit: Yes ED Registration Date: 08/07/17 Care time: The patient presented to the Emergency Department on the above date and was hospitalized for further evaluation of their emergent condition. - New Patient This patient is new to me today: No - Critical Care Critical Care patient: No - Discharge Referral Referred to [facility] Med P.C.: No
[2017-08-09] MEDS ORDERED: oxyCODONE HCL 5 MG TABLET PO PRN (16:19)
[2017-08-09] MEDS ORDERED: INSULIN (NOVOLOG) ASPART 100 UNITS/ML 10ML VIAL ONE (20:56)
[2017-08-09] MEDS ORDERED: INSULIN DETEMIR 100 UNITS/ML MDV SQ ONE (20:56)
[2017-08-09] MEDS: CHLORHEXIDINE GLUCONATE 4% CLEANSER FOR DECOLONIZATION TP SCH (21:53)
[2017-08-10] MEDS: PIPERACILLIN/TAZOB 3.375 GM 3.375 GM in DEXTROSE 5%-WATER - 50 ML IVPB SCH ×2 (01:34→10:41)
[2017-08-10] MEDS: D5-1/2NS+10 MEQ KCL - 10 MEQ/1,000 ML INFUS.BAG IV SCH ×2 (01:36→11:52)
[2017-08-10] MEDS: ACETAMINOPHEN 325 MG TABLET (FP) PO PRN ×3 (05:55→20:10)
[2017-08-10] MEDS: oxyCODONE HCL 5 MG TABLET PO PRN ×3 (05:56→20:08)
[2017-08-10] MEDS: INSULIN DETEMIR 100 UNITS/ML MDV SQ SCH ×2 (06:36→23:06)
[2017-08-10] MEDS: INSULIN SLIDING SCALE (NOVOLOG) 1 VIAL SQ SCH ×4 (06:37→23:06)
[2017-08-10 08:08] LABS: BASO % 0.3 % (0-2.0); EOS % 0.7 % (0-4.5); LYMPH % 42.9 % (8-40); MCHC 33.4 g/dl (32.0-36.0); MEAN CELL VOLUME 86.8 fl (80-96); MEAN PLT VOLUME 8.1 fl (7.5-11.1); MONO % 5.7 % (3.8-10.2); NEUT % 50.4 % (42.8-82.8); PLATELET COUNT 283 K/MM3 (134-434); WHITE BLOOD COUNT 8.6 K/mm3 (4.0-10.0)
[2017-08-10 08:18] LABS: CHLORIDE 103 mmol/L (98-107); POTASSIUM 3.5 mmol/L (3.5-5.1); SODIUM 138 mmol/L (136-145)
[2017-08-10 08:28] LABS: ALK PHOS 87 U/L (45-117); ANION GAP 8 (8-16); BILIRUBIN,TOTAL 0.4 mg/dL (0.2-1.0); BLOOD UREA NITROGEN 6 mg/dL (7-18); CALCIUM 7.9 mg/dL (8.5-10.1); CO2 27 mmol/L (21-32); CREATININE 0.7 mg/dL (0.55-1.02); GLUCOSE,RANDOM 142 mg/dL (74-106); MAGNESIUM 2.1 mg/dL (1.8-2.4); SGOT/AST 24 U/L (15-37); SGPT/ALT 20 U/L (12-78); TOT PROT 5.8 g/dl (6.4-8.2)
[2017-08-10] MEDS ORDERED: PT OWN MED DRAWER 7, Y5N ONE (09:12)
[2017-08-10] MEDS: ONDANSETRON 4 MG/2 ML VIAL IVPUSH PRN ×2 (09:18→18:04)
[2017-08-10] MEDS: ENOXAPARIN NA (PORCINE) 40 MG/0.4 ML DISP.SYRIN SQ SCH (09:18)
[2017-08-10] MEDS: MUPIROCIN 2% TOPICAL OINTMENT FOR DECOLONIZATION NS SCH (09:43)
[2017-08-10] MEDS ORDERED: INSULIN (NOVOLOG) ASPART 100 UNITS/ML 10ML VIAL ONE ×2 (11:38→21:09)
--- NOTE | 2017-08-10 11:55 | PN ---
Progress Note, Physician History of Present Illness: doing well c/o of burning in the stomach says she cant keep anything down--vomiting wbc normal - Current Medication List Current Medications: Active Medications Acetaminophen (Tylenol -) 650 mg PO Q4H PRN PRN Reason: PAIN LEVEL 6-10 Stop: 08/11/17 00:11 Last Admin: 08/10/17 05:55 Dose: 650 mg Chlorhexidine Gluconate (Hibiclens For Decolonization -) 1 applic TP HS [facility] Last Admin: 08/09/17 21:53 Dose: Not Given Enoxaparin Sodium (Lovenox -) 40 mg SQ DAILY [facility] Last Admin: 08/10/17 09:18 Dose: 40 mg Potassium Chloride/Dextrose/Sod Cl (D5-1/2ns+10 Meq Kcl -) 10 meq in 1,000 mls @ 83 mls/hr IV ASDIR [facility] Last Admin: 08/10/17 11:52 Dose: Not Given Piperacillin Sod/Tazobactam (Sod 3.375 gm/ Dextrose) 50 mls @ 100 mls/hr IVPB Q8H-IV [facility] PRN Reason: Protocol Last Admin: 08/10/17 10:41 Dose: 100 mls/hr Insulin Aspart (Novolog Vial Sliding Scale -) 1 vial SQ ACHS [facility] PRN Reason: Protocol Last Admin: 08/10/17 11:52 Dose: 6 units Insulin Detemir (Levemir Vial) 6 units SQ BID@0700,2200 [facility] Last Admin: 08/10/17 06:36 Dose: 6 units Mupirocin (Bactroban Ointment (For Decolonization) -) 1 applic NS BID [facility] Stop: 08/12/17 21:59 Last Admin: 08/10/17 09:43 Dose: Not Given Ondansetron HCl (Zofran Injection) 4 mg IVPUSH Q6H PRN PRN Reason: NAUSEA AND/OR VOMITING Last Admin: 08/10/17 09:18 Dose: 4 mg Oxycodone HCl (Roxicodone -) 10 mg PO Q4H PRN PRN Reason: PAIN LEVEL 6-10 Last Admin: 08/10/17 05:56 Dose: 10 mg - Objective Vital Signs: Vital Signs Temperature 99.0 F 08/10/17 09:44 Pulse Rate 70 08/10/17 09:44 Respiratory Rate 20 08/10/17 09:44 Blood Pressure 131/68 08/10/17 09:44 O2 Sat by Pulse Oximetry (%) 99 08/10/17 09:00 Constitutional: Yes: No Distress, Calm Cardiovascular: Yes: Regular Rate and Rhythm Respiratory: Yes: Regular, CTA Bilaterally Gastrointestinal: Yes: Normal Bowel Sounds, Soft Musculoskeletal: Yes: WNL Extremities: Yes: WNL Neurological: Yes: Alert, Oriented Psychiatric: Yes: Alert, Oriented Labs: CBC, BMP 08/10/17 06:30 08/10/17 06:30 Assessment/Plan Problem List - Problems (1) Diabetic keto-acidosis Code(s): E13.10 - OTH DIABETES MELLITUS WITH KETOACIDOSIS WITHOUT COMA Qualifiers: Diabetes mellitus type: type 1 Diabetes mellitus complication detail: without coma Qualified Code(s): E10.10 - Type 1 diabetes mellitus with ketoacidosis without coma (2) Hypokalemia Code(s): E87.6 - HYPOKALEMIA (3) Hyponatremia Code(s): E87.1 - HYPO-OSMOLALITY AND HYPONATREMIA (4) DVT prophylaxis Code(s): [id number] - (5) Diabetic gastroparesis associated with type 1 diabetes mellitus Code(s): E10.43 - TYPE 1 DIABETES W DIABETIC AUTONOMIC (POLY)NEUROPATHY; K31.84 - GASTROPARESIS 6 leukocytosis Assessment/Plan stopped abx monitor off of abx blood sugar control watch for vomiting
--- NOTE | 2017-08-10 12:26 | PN ---
Physical Exam: SUBJECTIVE: Patient seen and examined OBJECTIVE: nausea/vomiting this a.m., K within normal limits but on ivf severe back pain dilaudid 0.5mg x 1 now lidoderm patches oxy 10mg prn Vital Signs Period Temp Pulse Resp BP Sys/Rapp Pulse Ox Last 24 Hr 98.2 F-99.6 F 69-79 16-20 107-131/60-79 99-99 GENERAL: The patient is awake, alert, and fully oriented, in no acute distress. HEAD: Normal with no signs of trauma. EYES: PERRL, extraocular movements intact, sclera anicteric, conjunctiva clear. No ptosis. ENT: Ears normal, nares patent, oropharynx clear without exudates, moist mucous membranes. NECK: Trachea midline, full range of motion, supple. LUNGS: Breath sounds equal HEART: Regular rate and rhythm, S1, S2 without murmur, rub or gallop. ABDOMEN: Soft, nontender, nondistended, normoactive bowel sounds, no guarding, no rebound, no hepatosplenomegaly, no masses. EXTREMITIES: 2+ pulses, warm, well-perfused, no edema. NEUROLOGICAL: Normal speech, gait not observed. PSYCH: Normal mood, normal affect. SKIN: Warm, dry, normal turgor, no rashes or lesions noted Laboratory Results - last 24 hr 08/09/17 08/09/17 08/09/17 11:12 16:56 22:02 WBC RBC Hgb Hct MCV MCH MCHC RDW Plt Count MPV Neutrophils % Lymphocytes % Monocytes % Eosinophils % Basophils % Sodium Potassium Chloride Carbon Dioxide Anion Gap BUN Creatinine Creat Clearance w eGFR POC Glucometer 278.81622 232 Random Glucose 425 H* Calcium Magnesium Total Bilirubin AST ALT Alkaline Phosphatase Total Protein Albumin 08/09/17 08/10/17 08/10/17 23:19 05:54 06:30 WBC 8.6 D RBC 3.80 Hgb 11.0 Hct 33.0 MCV 86.8 MCH 29.0 MCHC 33.4 RDW 14.0 Plt Count 283 MPV 8.1 Neutrophils % 50.4 D Lymphocytes % 42.9 H D Monocytes % 5.7 Eosinophils % 0.7 D Basophils % 0.3 Sodium Potassium Chloride Carbon Dioxide Anion Gap BUN Creatinine Creat Clearance w eGFR POC Glucometer 323 186 Random Glucose Calcium Magnesium Total Bilirubin AST ALT Alkaline Phosphatase Total Protein Albumin 08/10/17 08/10/17 06:30 11:11 WBC RBC Hgb Hct MCV MCH MCHC RDW Plt Count MPV Neutrophils % Lymphocytes % Monocytes % Eosinophils % Basophils % Sodium 138 Potassium 3.5 Chloride 103 Carbon Dioxide 27 Anion Gap 8 BUN 6 L Creatinine 0.7 Creat Clearance w eGFR > 60 POC Glucometer 251 Random Glucose 142 H Calcium 7.9 L Magnesium 2.1 Total Bilirubin 0.4 AST 24 ALT 20 Alkaline Phosphatase 87 Total Protein 5.8 L Albumin 3.0 L Active Medications Generic Name Dose Route Start Last Admin Trade Name Freq PRN Reason Stop Dose Admin Acetaminophen 650 mg 08/08/17 00:12 08/10/17 12:02 Tylenol - PO 08/11/17 00:11 650 mg Q4H PRN Administration PAIN LEVEL 6-10 Chlorhexidine Gluconate 1 applic 08/07/17 22:45 08/09/17 21:53 Hibiclens For Decolonization - TP Not Given HS [facility] Enoxaparin Sodium 40 mg 08/08/17 10:00 08/10/17 09:18 Lovenox - SQ 40 mg DAILY [facility] Administration Potassium Chloride/Dextrose/Sod Cl 10 meq in 1,000 mls @ 83 mls/hr 08/08/17 11 :30 08/10/17 11:52 D5-1/2ns+10 Meq Kcl - IV Not Given ASDIR [facility] Insulin Aspart 1 vial 08/08/17 11:00 08/10/17 11:52 Novolog Vial Sliding Scale - SQ 6 units ACHS [facility] Administration Protocol Insulin Detemir 6 units 08/10/17 07:00 08/10/17 06:36 Levemir Vial SQ 6 units BID@0700,2200 [facility] Administration Mupirocin 1 applic 08/07/17 22:45 08/10/17 09:43 Bactroban Ointment (For Decolonization) - NS 08/12/17 21:59 Not Given BID [facility] Ondansetron HCl 4 mg 08/07/17 20:38 08/10/17 09:18 Zofran Injection IVPUSH 4 mg Q6H PRN Administration NAUSEA AND/OR VOMITING Oxycodone HCl 10 mg 08/08/17 00:12 08/10/17 11:59 Roxicodone - PO 10 mg Q4H PRN Administration PAIN LEVEL 6-10 ASSESSMENT/PLAN: Patient is a 47 y/o woman with a past medical history of IDDM (non-compliance), Gastroparesis, Chronic Back Pain. Who presents to the ED c/o excessive vomiting and loose stools. Patient also reports severe back pain which she could not take her po pain meds, secondary to vomiting. Patient denies fever, chills, cough, SOB, CP, constipation, dysuria. She presents to [place] in DKA. 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 Fluids: stop ivf Electrolytes: monitor Nutrition: diabetic diet Prophylaxis: DVT: ambulatory GI: Protonix Disposition: Likely discharge tomorrow. full code Visit type - Emergency Visit Emergency Visit: Yes ED Registration Date: 08/07/17 Care time: The patient presented to the Emergency Department on the above date and was hospitalized for further evaluation of their emergent condition. - New Patient This patient is new to me today: No - Critical Care Critical Care patient: No - Discharge Referral Referred to [facility] Med P.C.: No
[2017-08-10] MEDS ORDERED: HYDROmorphone HCL 2 MG TABLET PO ONE (12:29)
[2017-08-10] MEDS ORDERED: HYDROmorphone HCL CARPU-JECT 2 MG/1 ML DISP.SYRIN IVPB ONE (12:45)
[2017-08-10] MEDS ORDERED: HYDROmorphone HCL CARPU-JECT 1 MG/1 ML DISP.SYRIN IVPB ONE (12:45)
[2017-08-10] MEDS ORDERED: LIDOCAINE 5% TOPICAL PATCH TP ONE (13:00)
[2017-08-10] MEDS: POTASSIUM CHLORIDE 10 MEQ in DEXTROSE 5%-0.45% SALINE 1,000 ML IVPB SCH (15:52)
[2017-08-10] MEDS ORDERED: LIDOCAINE PATCH REMOVAL MC ONE (22:00)
[2017-08-11] MEDS ORDERED: INSULIN (NOVOLOG) ASPART 100 UNITS/ML 10ML VIAL SQ ONE (00:32)
[2017-08-11] MEDS: oxyCODONE HCL 5 MG TABLET PO PRN ×2 (02:32→07:12)
[2017-08-11] MEDS ORDERED: ACETAMINOPHEN 325 MG TABLET (FP) ONE (02:35)
[2017-08-11] MEDS: POTASSIUM CHLORIDE 10 MEQ in DEXTROSE 5%-0.45% SALINE 1,000 ML IVPB SCH (02:58)
[2017-08-11] MEDS: ONDANSETRON 4 MG/2 ML VIAL IVPUSH PRN (06:14)
[2017-08-11] MEDS: INSULIN SLIDING SCALE (NOVOLOG) 1 VIAL SQ SCH ×2 (06:19→11:15)
[2017-08-11] MEDS: INSULIN DETEMIR 100 UNITS/ML MDV SQ SCH (06:20)
[2017-08-11 07:11] VITALS: PULSE 77
[2017-08-11 07:30] LABS: BASO % 0.8 % (0-2.0); EOS % 1.7 % (0-4.5); HEMATOCRIT 31.3 % (32.4-45.2); HEMOGLOBIN 10.2 GM/dL (10.7-15.3); LYMPH % 40.1 % (8-40); MCH 28.5 pg (25.7-33.7); MCHC 32.6 g/dl (32.0-36.0); MEAN CELL VOLUME 87.4 fl (80-96); MEAN PLT VOLUME 8.3 fl (7.5-11.1); MONO % 6.8 % (3.8-10.2); NEUT % 50.6 % (42.8-82.8); PLATELET COUNT 301 K/MM3 (134-434); RBC 3.59 M/mm3 (3.60-5.2)
[2017-08-11 07:48] LABS: ALBUMIN 2.7 g/dl (3.4-5.0); ANION GAP 8 (8-16); BLOOD UREA NITROGEN 7 mg/dL (7-18); CALCIUM 8.5 mg/dL (8.5-10.1); CHLORIDE 105 mmol/L (98-107); CO2 26 mmol/L (21-32); CREATININE 0.5 mg/dL (0.55-1.02); GLUCOSE,RANDOM 134 mg/dL (74-106); MAGNESIUM 2.3 mg/dL (1.8-2.4); POTASSIUM 3.6 mmol/L (3.5-5.1); SGOT/AST 26 U/L (15-37); SGPT/ALT 24 U/L (12-78); SODIUM 139 mmol/L (136-145)
[2017-08-11 07:50] LABS: ALK PHOS 86 U/L (45-117); BILIRUBIN,TOTAL 0.4 mg/dL (0.2-1.0); TOT PROT 5.5 g/dl (6.4-8.2)
[2017-08-11] MEDS ORDERED: PT OWN MED DRAWER 7, Y5N ONE (09:13)
[2017-08-11] MEDS: ENOXAPARIN NA (PORCINE) 40 MG/0.4 ML DISP.SYRIN SQ SCH (09:23)
[2017-08-11] MEDS ORDERED: ONDANSETRON *ODT* 4 MG TABLET SL ONE (09:54)
[2017-08-11] MEDS ORDERED: LIDOCAINE 5% TOPICAL PATCH TP ONE (09:55)
--- NOTE | 2017-08-11 09:55 | DS ---
Physical Exam: SUBJECTIVE: Patient seen and examined OBJECTIVE: Vital Signs Period Temp Pulse Resp BP Sys/Rapp Pulse Ox Last 24 Hr 97.4 F-99.4 F 70-87 20-20 132-141/75-88 99 PHYSICAL EXAM GENERAL: The patient is awake, alert, and fully oriented, in no acute distress. HEAD: Normal with no signs of trauma. EYES: PERRL, extraocular movements intact, sclera anicteric, conjunctiva clear. ENT: Ears normal, nares patent, oropharynx clear without exudates, moist mucous membranes. NECK: Trachea midline, full range of motion, supple. LUNGS: Breath sounds equal, clear to auscultation bilaterally, no wheezes, no crackles, no accessory muscle use. HEART: Regular rate and rhythm, S1, S2 without murmur, rub or gallop. ABDOMEN: Soft, nontender, nondistended, normoactive bowel sounds, no guarding, no rebound, no hepatosplenomegaly, no masses. EXTREMITIES: 2+ pulses, warm, well-perfused, no edema. NEUROLOGICAL: Cranial nerves II through XII grossly intact. Normal speech, gait not observed. PSYCH: Normal mood, normal affect. SKIN: Warm, dry, normal turgor, no rashes or lesions noted. LABS Laboratory Results - last 24 hr 08/09/17 08/10/17 08/10/17 21:28 11:11 16:47 WBC RBC Hgb Hct MCV MCH MCHC RDW Plt Count MPV Neutrophils % Lymphocytes % Monocytes % Eosinophils % Basophils % Sodium Potassium Chloride Carbon Dioxide Anion Gap BUN Creatinine Creat Clearance w eGFR POC Glucometer 448 251 219 Random Glucose Calcium Magnesium Total Bilirubin AST ALT Alkaline Phosphatase Total Protein Albumin 08/10/17 08/10/17 08/11/17 21:29 21:40 00:28 WBC RBC Hgb Hct MCV MCH MCHC RDW Plt Count MPV Neutrophils % Lymphocytes % Monocytes % Eosinophils % Basophils % Sodium Potassium Chloride Carbon Dioxide Anion Gap BUN Creatinine Creat Clearance w eGFR POC Glucometer 444 393 Random Glucose 380 H* Calcium Magnesium Total Bilirubin AST ALT Alkaline Phosphatase Total Protein Albumin 08/11/17 08/11/17 08/11/17 06:18 06:38 06:38 WBC 8.0 RBC 3.59 L Hgb 10.2 L Hct 31.3 L MCV 87.4 MCH 28.5 MCHC 32.6 RDW 14.0 Plt Count 301 MPV 8.3 Neutrophils % 50.6 Lymphocytes % 40.1 H Monocytes % 6.8 Eosinophils % 1.7 D Basophils % 0.8 Sodium 139 Potassium 3.6 Chloride 105 Carbon Dioxide 26 Anion Gap 8 BUN 7 Creatinine 0.5 L Creat Clearance w eGFR > 60 POC Glucometer 134 Random Glucose 134 H Calcium 8.5 Magnesium 2.3 Total Bilirubin 0.4 AST 26 ALT 24 Alkaline Phosphatase 86 Total Protein 5.5 L Albumin 2.7 L HOSPITAL COURSE: Date of Admission:08/07/17 Date of Discharge: 08/11/17 Discharge Summary Reason For Visit: DKA Current Active Problems Diabetic keto-acidosis (Acute) Hypokalemia (Acute) Hyponatremia (Acute) Condition: Stable - Instructions Referrals: Gilbert Voss MD [Staff Physician] - Pa Heard MD [Primary Care Provider] - Disposition: HOME - Home Medications Comprehensive Discharge Medication List: Ambulatory Orders Oxycodone HCl/Acetaminophen [Percocet 10-325 mg Tablet] 1 - 2 tab PO QID Insulin Sliding Scale [Novolog Vial Sliding Scale -] See Protocol SQ AC 30 Days units 12/07/15 Insulin Glargine,Hum.rec.anlog [Lantus Solostar PEN -] 10 units SQ HS 06/11/17 Ketorolac Tromethamine [Toradol] 10 mg PO Q6H PRN #20 tablet 06/16/17 Pantoprazole Sodium [Protonix -] 20 mg PO DAILY #30 tablet.ec 06/16/17 Atorvastatin Ca [Lipitor] 10 mg PO HS 08/07/17 Morphine *Immediate Release* [Msir -] 2 tab PO QID 08/07/17 Ondansetron [Ondansetron Odt] 8 mg PO TID 30 Days #30 tab.rapdis 08/09/17 - Discharge Referral Referred to [facility] No
[2017-08-11] MEDS ORDERED: traMADol HCL 50 MG TABLET PO ONE (09:56)
[2017-08-11 11:30] VITALS: BP 123/93; TEMP 98.6
[2017-08-11] MEDS ORDERED: LIDOCAINE PATCH REMOVAL MC SCH (22:00)
== END 2017-08-11 11:20 | disposition home or self-care (01) | DRG 638 ==
LOC: FER 05:04 → JICU 23:10 → J5S 08-09 13:56
PROVIDERS: ADMIT Internal Medicine; ATTEND Nurse Practitioner Family
DX: E10.10 Type 1 diabetes mellitus with ketoacidosis without coma (principal); E87.1 Hypo-osmolality and hyponatremia; E87.6 Hypokalemia; Z91.14 Patient's other noncompliance with medication regimen; F17.210 Nicotine dependence, cigarettes, uncomplicated; K31.84 Gastroparesis; E10.43 Type 1 diabetes mellitus with diabetic autonomic (poly)neuropathy; D72.829 Elevated white blood cell count, unspecified
CPT/HCPCS: 36415; 36600; 71045-TC; 76700-TC; 80048; 80053; 81003; 81015; 82009; 82150; 82375; 82550; 82803; 82947; 82962; 83050; 83605; 83735; 84100; 84484; 84703; 85025; 85027; 87040; 87086; 93005; 99284-25

== ENCOUNTER 2017-08-14 22:15 | Inpatient (IN) | payer OTHER ==
--- NOTE | 2017-08-14 22:55 | PDOC ---
History of Present Illness - General Chief Complaint: CVA/TIA Stated Complaint: LT ARM NUMBNESS Time Seen by Provider: 08/14/17 22:36 History Source: Patient Exam Limitations: No Limitations - History of Present Illness Initial Comments: 08/14/17 23:01 This is a 47-year-old female who comes in complaining of left-sided numbness and weakness times approximately 17 hours now. Symptoms began approximately 5: 30 this morning and patient did not come in until now. Patient denies history of similar symptoms in the past. Patient was recently discharged from the hospital as she is a diabetic and had a episode of hyperglycemia. PAST MEDICAL HISTORY: no significant history PAST SURGICAL HISTORY: no significant history FAMILY HISTORY: no pertinant history SOCIAL HISTORY: Pt lives with family and is employed. MEDICATIONS: reviewed ALLERGIES: As per nursing notes Review of Systems General: No fevers or chills, no weakness, no weight loss HEENT: No change in vision. No sore throat,. No ear pain CardioVascular: No chest pain or shortness of breath Respiratory:No cough, or wheezing. Gastrointestinal: no nausea, vomitting, diarrhea or constipation, No rectal bleeding Genitourinary: No dysuria, hematuria, or frequency Musculoskeletal: No joint or muscle pain or swelling Neurologic: No headache, vertigo, dizziness or loss of consciousness, left- sided numbness and weakness Psychiatric: nor depression Skin: No rashes or easy bruising Endocrine: no increased thirst or abnormal weight change Allergic: no skin or latex allergy All other systems reviewed and normal Exam: General: Well-nourished well-developed individual, no acute distress HEENT: Throat: Normal, tonsils normal, no erythema or exudate Neck: Supple, no meningeal signs, no lymphadenopathy Eyes::Pupils equal reactive and round, extraocular motion intact Chest: Nontender to palpation Cardiac: S1-S2 normal, regular rate and rhythm, no murmurs rubs or gallops Respiratory: Lungs clear to auscultation bilateral Abdomen: Soft, nondistended, normal bowel sounds, nontender to palpation diffusely Extremities: Warm, dry, no cyanosis, clubbing, or edema Skin: No rashes Neuro: Alert and oriented x3, See NIH stroke scale Psych: Normal mood and affect Medical decision making: Symptoms are concerning for a CVA we will obtain CVA workup including head CT CBC, comp, PT, cardiac, EKG, chest x-ray Patient is not a candidate for thrombolysis as symptoms have been in excess of 15 hours at this time. We'll reassess and evaluate workup 08/15/17 01:24 Reassessment patient remains clinically unchanged with a NIH stroke scale of 3. Patient's head CT shows a 6.4 x 3.9 cm acute ischemic infarct of the right frontal lobe extending to the insulin of the right temporal lobe there is no acute hemorrhage mass effect or midline shift Assessment and plan: This is a 47-year-old female with an an ice H stroke scale of 3 and left sided weakness and numbness. Patient will be admitted to an inpatient bed for an acute ischemic stroke as her head CT is positive for an acute ischemic infarct. 08/15/17 02:[address] Nguyen neurology who feels patient is okay to stay at [place] he will consult and see her in the morning in the meantime she'll be admitted to the hospitalist service . Signout given to the admitting hospitalist, who accepts the patient. Discussed plan with the patient , Patient and family aware of the plan and agree. Patient is clinically unchanged and stable. Past History - Past Medical History Allergies/Adverse Reactions: Allergies Allergy/AdvReac Type Severity Reaction Status Date / Time No Known Allergies Allergy Verified 06/11/17 18:21 Home Medications: Ambulatory Orders Oxycodone HCl/Acetaminophen [Percocet 10-325 mg Tablet] 1 - 2 tab PO QID Insulin Sliding Scale [Novolog Vial Sliding Scale -] See Protocol SQ AC 30 Days units 12/07/15 Insulin Glargine,Hum.rec.anlog [Lantus Solostar PEN -] 10 units SQ HS 06/11/17 Ketorolac Tromethamine [Toradol -] 10 mg PO Q6H PRN #20 tablet 06/16/17 Pantoprazole Sodium [Protonix -] 20 mg PO DAILY #30 tablet.ec 06/16/17 Atorvastatin Ca [Lipitor] 10 mg PO HS 08/07/17 Morphine *Immediate Release* [Msir -] 2 tab PO QID 08/07/17 Ondansetron [Ondansetron Odt] 8 mg PO TID 30 Days #30 tab.rapdis 08/09/17 COPD: No Diabetes: Yes (TYPE I, DKA) GI Disorders: Yes (GASTROPARESIS) Other medical history: CHRONIC BACK PAIN - Surgical History Cholecystectomy: Yes (AGE 19) - Immunization History Td Vaccination: Yes Immunization Up to Date: Yes - Suicide/Smoking/Psychosocial Hx Smoking Status: Yes Smoking History: Current every day smoker Years of Tobacco Use: 15 Have you smoked in the past 12 months: Yes Number of Cigarettes Smoked Daily: 25 Information on smoking cessation initiated: Yes 'Breaking Loose' booklet given: 06/11/17 Hx Alcohol Use: No Drug/Substance Use Hx: No Substance Use Type: None Hx Substance Use Treatment: No *Physical Exam - Vital Signs Last Vital Signs Temp Pulse Resp BP Pulse Ox 98.8 F 89 16 112/66 95 08/14/17 22:21 08/14/17 22:21 08/14/17 22:21 08/14/17 22:21 08/14/17 22:21 ED Treatment Course - LABORATORY CBC & Chemistry Diagram: 08/15/17 00:55 08/15/17 00:55 *DC/Admit/Observation/Transfer Diagnosis at time of Disposition: Cerebrovascular accident (CVA) Qualifiers: CVA mechanism: unspecified Qualified Code(s): I63.9 - Cerebral infarction, unspecified - Discharge Dispostion Condition at time of disposition: Stable Admit: Yes - Referrals Referrals: Pa Heard MD [Primary Care Provider] - - Patient Instructions - Post Discharge Activity
--- NOTE | 2017-08-14 23:04 | PDOC ---
NIH Stroke Scale - Last Known Well Date/Time & Onset Date Last Known Well: 08/14/17 Time Last Known Well: 05:30 - Initial Evaluation Level of consciousness: Alert Ask patient the month and their age: Answers both correctly Ask patient to open & close eyes; make fist and let go: Obeys both correctly Best gaze (horizontal eye movement): Normal Visual field testing: No visual field loss Facial paresis (Show teeth/raise eyebrows/close eyes tight): Minor paralysis ( flattened nasolabial fold, asymmetry on smiling) Motor Function: Left Arm: Normal Motor Function: Right Arm: Normal (extends arm 90 (or 45) degrees for 10 seconds without drift Motor Function: Left Leg: Drift Motor Function: Right Leg: Normal (extends leg 30 degrees for 5 seconds without drift) Limb Ataxia: No ataxia Sensory(Use pinprick test arms,legs,trunk,face/side to side): Mild to moderate decrease in sensation Best language (Describe picture, name items, read sentences): No Aphasia Dysarthria (read several words): Normal articulation Extinction and Inattention: No abnormality - Total Score NIH Stroke Scale Score: 3
[2017-08-15 01:35] LABS: HEMATOCRIT 38.1 % (32.4-45.2); HEMOGLOBIN 12.5 GM/dL (10.7-15.3); MCHC 32.7 g/dl (32.0-36.0); MEAN CELL VOLUME 88.7 fl (80-96); MEAN PLT VOLUME 7.4 fl (7.5-11.1); PLATELET COUNT 573 K/MM3 (134-434); RDW 14.7 % (11.6-15.6); WHITE BLOOD COUNT 7.7 K/mm3 (4.0-10.0)
[2017-08-15 01:55] LABS: INR 0.95 (0.82-1.09); PROTHROMBIN TIME (PATIENT) 10.7 SEC (9.98-11.88)
[2017-08-15 02:18] LABS: ALBUMIN 3.2 g/dl (3.4-5.0); ANION GAP 11 (8-16); BLOOD UREA NITROGEN 11 mg/dL (7-18); CALCIUM 8.7 mg/dL (8.5-10.1); CHLORIDE 98 mmol/L (98-107); CO2 25 mmol/L (21-32); CREATININE 0.8 mg/dL (0.55-1.02); GLUCOSE,RANDOM 279 mg/dL (74-106); POTASSIUM 4.1 mmol/L (3.5-5.1); SGOT/AST 13 U/L (15-37); SGPT/ALT 21 U/L (12-78); SODIUM 134 mmol/L (136-145)
[2017-08-15 02:20] LABS: ALK PHOS 86 U/L (45-117); BILIRUBIN,TOTAL 0.2 mg/dL (0.2-1.0); TOT PROT 6.6 g/dl (6.4-8.2)
--- NOTE | 2017-08-15 03:54 | HP ---
CHIEF COMPLAINT: Left sided numbness/weakness PCP: [facility] HISTORY OF PRESENT ILLNESS: 47yF with significant past medical history of IDDM, DKA presented to the ED with c/o left sided weakness and numbness since 530AM on 08/14/17. Pt denies headache. ER course was notable for: (1) CT with acute infarct right frontal lobe Recent Travel: pt denies PAST MEDICAL HISTORY: IDDM, gastroparesis, chronic back pain, migraine PAST SURGICAL HISTORY: cholecystectomy cyst removed from left shoulder Social History: Smokinppd Alcohol: pt denies Drugs: occ marijuana Family History: mother alive with no medical problems father with CAD, s/p stent in his 40s brother with diverticulitis Allergies No Known Allergies Allergy (Verified 06/11/17 18:21) HOME MEDICATIONS: 3 Medication Instructions Recorded Oxycodone HCl/Acetaminophen 1 - 2 tab PO QID 06/20/15 [Percocet 10-325 mg Tablet] Insulin Sliding Scale [Novolog See Protocol SQ AC 30 Days units 12/07/15 Vial Sliding Scale -] Insulin Glargine,Hum.rec.anlog 10 units SQ HS 06/11/17 [Lantus Solostar PEN -] Ketorolac Tromethamine [Toradol -] 10 mg PO Q6H PRN #20 tablet 06/16/17 Pantoprazole Sodium [Protonix -] 20 mg PO DAILY #30 tablet.ec 06/16/17 Atorvastatin Ca [Lipitor] 10 mg PO HS 08/07/17 Morphine *Immediate Release* [Msir 2 tab PO QID 08/07/17 -] Ondansetron [Ondansetron Odt] 8 mg PO TID 30 Days #30 tab.rapdis 08/09/17 REVIEW OF SYSTEMS CONSTITUTIONAL: Absent: fever, chills, diaphoresis, generalized weakness, malaise, loss of appetite, weight change HEENT: Absent: rhinorrhea, nasal congestion, throat pain, throat swelling, difficulty swallowing, mouth swelling, ear pain, eye pain, visual changes CARDIOVASCULAR: Absent: chest pain, syncope, palpitations, irregular heart rate, lightheadedness , peripheral edema RESPIRATORY: Absent: cough, shortness of breath, dyspnea with exertion, orthopnea, wheezing, stridor, hemoptysis GASTROINTESTINAL: Absent: abdominal pain, abdominal distension, nausea, vomiting, diarrhea, constipation, melena, hematochezia GENITOURINARY: Absent: dysuria, frequency, urgency, hesitancy, hematuria, flank pain, genital pain MUSCULOSKELETAL: Absent: myalgia, arthralgia, joint swelling, back pain, neck pain SKIN: Absent: rash, itching, pallor HEMATOLOGIC/IMMUNOLOGIC: Absent: easy bleeding, easy bruising, lymphadenopathy, frequent infections ENDOCRINE: Absent: unexplained weight gain, unexplained weight loss, heat intolerance, cold intolerance NEUROLOGIC: focal weakness or paresthesias Absent: headache, dizziness, unsteady gait, seizure, mental status changes, bladder or bowel incontinence PSYCHIATRIC: Absent: anxiety, depression, suicidal or homicidal ideation, hallucinations. PHYSICAL EXAMINATION Vital Signs - 24 hr 3 08/14/17 22:21 Temperature 98.8 F Pulse Rate 89 Respiratory 16 Rate Blood Pressure 112/66 O2 Sat by Pulse 95 Oximetry (%) GENERAL: Awake, alert, and fully oriented, in no acute distress. HEAD: Normal with no signs of trauma. EYES: Pupils equal, round and reactive to light, extraocular movements intact, sclera anicteric, conjunctiva clear. No lid lag. EARS, NOSE, THROAT: Ears normal, nares patent, oropharynx clear without exudates. Moist mucous membranes. NECK: Normal range of motion, supple without lymphadenopathy, JVD, or masses. LUNGS: Breath sounds equal, clear to auscultation bilaterally. No wheezes, and no crackles. No accessory muscle use. HEART: Regular rate and rhythm, normal S1 and S2 without murmur, rub or gallop. ABDOMEN: Soft, nontender, not distended, normoactive bowel sounds, no guarding, no rebound, no masses. No hepatomegaly or splenomegaly. MUSCULOSKELETAL: Normal range of motion at all joints. No bony deformities or tenderness. No CVA tenderness. UPPER EXTREMITIES: 2+ pulses, warm, well-perfused. No cyanosis. No clubbing. No peripheral edema. LOWER EXTREMITIES: 2+ pulses, warm, well-perfused. No calf tenderness. No peripheral edema. NEUROLOGICAL: Normal speech. Unsteady gait. LUE strength 4-/5, LLE strength 3/ 5. neglect noted to left side. left leg and arm with drift PSYCHIATRIC: Cooperative. Good eye contact. Appropriate mood and affect. SKIN: Warm, dry, normal turgor, no rashes or lesions noted, normal capillary refill. Laboratory Results - last 24 hr 3 08/15/17 08/15/17 08/15/17 00:55 00:55 00:55 WBC 7.7 RBC 4.30 Hgb 12.5 D Hct 38.1 D MCV 88.7 MCH 29.0 MCHC 32.7 RDW 14.7 Plt Count 573 H D MPV 7.4 L D Total Counted 100 Neutrophils % No Result Required. Neutrophils % (Manual) 30.0 L Lymphocytes % No Result Required. Lymphocytes % (Manual) 53.0 H Monocytes % (Manual) 14 H Eosinophils % (Manual) 3.0 PT with INR 10.70 INR 0.95 Sodium Potassium Chloride Carbon Dioxide Anion Gap BUN Creatinine Creat Clearance w eGFR POC Glucometer Random Glucose Calcium Total Bilirubin AST ALT Alkaline Phosphatase Creatine Kinase 96 Troponin I < 0.02 Total Protein Albumin 3 08/15/17 08/15/17 00:55 02:26 WBC RBC Hgb Hct MCV MCH MCHC RDW Plt Count MPV Total Counted Neutrophils % Neutrophils % (Manual) Lymphocytes % Lymphocytes % (Manual) Monocytes % (Manual) Eosinophils % (Manual) PT with INR INR Sodium 134 L Potassium 4.1 Chloride 98 Carbon Dioxide 25 Anion Gap 11 BUN 11 Creatinine 0.8 Creat Clearance w eGFR > 60 POC Glucometer 210.38484 Random Glucose 279 H Calcium 8.7 Total Bilirubin 0.2 D AST 13 L ALT 21 Alkaline Phosphatase 86 Creatine Kinase Troponin I Total Protein 6.6 Albumin 3.[address] head non contrast THIS IS A PRELIMINARY REPORT FROM [facility] G[facility]PLIANCE REPAIRER Acute ischemic infarct right frontal lobe and extending to insula of right temporal lobe, approximately 6.4 x 3.9 cm (unable to measure in all three planes). No acute hemorrhage, mass effect or midline shift. Clear visualized paranasal sinuses. Visualized mastoid air cells clear. THIS DOCUMENT HAS BEEN ELECTRONICALLY SIGNED Lena Pineda M.D. 08/15/2017 00:51 EST ECG ASSESSMENT/PLAN: 47yF with PMH IDDM, poorly controlled, gastroparesis, chronic back pain, migraines presented to the ED with report of left arm numbness and weakness. Right frontal lobe infarct - neurology consult, ED discussed with them via telephone - neurology to decide re asa / heparin IDDM - home lantus converted to formulary levemir - BGM AC/HS with novolog SS Chronic back pain - cont home morphine - cont home oxycodone prn DVT PPX - defer for now, neurology to see this am FEN - tolerating po - bmp this am - diabetic diet as tolerated Dispo: Pt requires inpatient care for management of her emergent condition. Visit type - Emergency Visit Emergency Visit: Yes ED Registration Date: 08/14/17 Care time: The patient presented to the Emergency Department on the above date and was hospitalized for further evaluation of their emergent condition. - New Patient This patient is new to me today: Yes Date on this admission: 08/15/17 - Critical Care Critical Care patient: No Hospitalist Screening - Patient: 50 - 75 years old and never had a screening colonoscopy: No History of colon or rectal polyps, or CA: Unknown History of IBD, Crohn's disease or UC: Unknown History of abdominal radiation therapy as a child: Unknown - Relative: 1 with colon or rectal CA, or polyps at age 60 or younger: Unknown Colon or rectal CA diagnosed at age 45 or younger: Unknown Multiple relatives with colon or rectal CA: Unknown - Outcome: Screening Result: Negative Screen
[2017-08-15] MEDS ORDERED: ONDANSETRON *ODT* 4 MG TABLET SL PRN ×2 (04:35→20:49)
[2017-08-15] MEDS ORDERED: ACETAMINOPHEN 325 MG TABLET (FP) PO PRN ×2 (04:43→20:49)
[2017-08-15] MEDS ORDERED: oxyCODONE HCL 5 MG TABLET PO PRN ×2 (04:43→20:49)
[2017-08-15] MEDS ORDERED: ACETAMINOPHEN 325 MG TABLET (FP) ONE (05:07)
[2017-08-15] MEDS ORDERED: morphine SULFATE IMMEDIATE RELEASE 30 MG TAB PO SCH (06:00)
[2017-08-15] MEDS: morphine SULFATE IMMEDIATE RELEASE 30 MG TAB PO SCH ×3 (06:19→18:52)
[2017-08-15 07:45] LABS: ANION GAP 7 (8-16); BLOOD UREA NITROGEN 9 mg/dl (7-18); CALCIUM 8.3 mg/dl (8.4-10.2); CHLORIDE 100 mmol/L (98-107); CO2 25 mmol/L (22-28); GLUCOSE,RANDOM 238 mg/dl (74-106); MAGNESIUM 1.9 mg/dL (1.8-2.4); PHOSPHOROUS 3.4 mg/dl (2.5-4.6); POTASSIUM 3.8 mmol/L (3.5-5.1); SODIUM 132 mmol/L (136-145)
[2017-08-15 07:49] LABS: CHOLESTEROL 183 mg/dl; HDL CHOLESTEROL 44 mg/dl (29-89); LDL CHOLESTEROL (ONLY DFH) 80 mg/dl; TRIGLYCERIDES 296 mg/dl (35-160)
[2017-08-15 07:57] LABS: CREATININE < 0.8 mg/dl (0.6-1.3)
[2017-08-15 09:45] LABS: MCH 30.5 pg (25.7-33.7); MCHC 35.1 g/dl (32.0-36.0); MEAN CELL VOLUME 86.8 fl (80-96); MEAN PLT VOLUME 6.9 fl (7.5-11.1); PLATELET COUNT 668 K/MM3 (134-434); RBC 3.92 M/mm3 (3.60-5.2); RDW 13.8 % (11.6-15.6); WHITE BLOOD COUNT 8.8 K/mm3 (4.0-10.8)
[2017-08-15] MEDS ORDERED: PANTOPRAZOLE 20 MG TABLET (FP) PO SCH (10:00)
[2017-08-15] MEDS: INSULIN SLIDING SCALE (NOVOLOG) 1 VIAL SQ SCH ×4 (10:54→17:45)
[2017-08-15] MEDS ORDERED: INSULIN REGULAR HUMAN 100 UNITS/ML *VIAL ONE (10:59)
[2017-08-15] MEDS ORDERED: morphine SULFATE IMMEDIATE RELEASE 30 MG TAB ONE (12:43)
[2017-08-15] MEDS ORDERED: PANTOPRAZOLE 40 MG TABLET (FP) ONE (12:43)
--- NOTE | 2017-08-15 12:44 | CONSULT ---
Admitting History and Physical - Admission History of Present Illness: Per EMR: 47yF with PMH IDDM, poorly controlled, gastroparesis, chronic back pain, migraines presented to the ED with report of left arm numbness and weakness. 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 Gastrointestinal: Yes: Other (Gastroparesis) ...LMP: 04/14/13 Musculoskeletal: Yes: Chronic low back pain Endocrine: Yes: Diabetes Mellitus - Past Surgical History Past Surgical History: Yes: Cholecystectomy - Smoking History Smoking history: Current every day smoker Have you smoked in the past 12 months: Yes Aproximately how many cigarettes per day: 25 - Alcohol/Substance Use Hx Alcohol Use: No History of Substance Use: reports: None - Social History ADL: Independent History of Recent Travel: No History - Admission Reason For Visit: LT ARM NUMBNESS - Diagnostics CT Scan: Report Reviewed (CT head non contrast THIS IS A PRELIMINARY REPORT FROM [facility] Acute ischemic infarct right frontal lobe and extending to insula of right temporal lobe, approximately 6.4 x 3.9 cm (unable to measure in all three planes). No acute hemorrhage, mass effect or midline shift. Clear visualized paranasal sinuses. Visualized mastoid air cells clear. THIS DOCUMENT HAS BEEN ELECTRONICALLY SIGNED) - General Mental Status: Alert and Oriented, Awake and Alert, Able to Follow Commands, Vague, Flat Affect Attention: Distractible, Mild Impairment Ability to Follow Directions: Fair Head/Neck Control: Good - Hearing Hearing: Functional Speech Evaluation - Communication Primary Language: TAMAZIGHT Communication: Yes: Simple Responses Oral Expression Ability: Yes: No Impairment - Speech Production Able to Make Needs Known: Yes: WNL Intelligibility: Yes: WNL - Speech Characteristics Voice Loudness: Normal Voice Pitch: Yes: Normal Voice Phonatory-based Quality: Yes: Normal Speech Pattern: Normal Speech Clarity: < 100% Nasal Resonance: Normal Articulation: Yes: Precise - Language/Auditory Comprehension Follows: Yes: 2 Stage Simple Commands - Language/Verbal Expression Able to Respond to Simple Queries: Yes: WNL Able to Communicate Wants and Needs: Yes: WNL Functional Communication Status: Yes: WNL - Swallow Evaluation/Bedside Assessment Current Nutritional Intake: Regular, Thin Liquids Oral Secretions: Yes: WFL Dentition: Yes: Adequate, Missing Teeth Facial Symmetry at Rest: Symmetrical Facial Symmetry on Retraction: Symmetrical Against Resistance Opening: Normal Against Resistance Closing: Normal Pucker Lips: Normal Smile: Normal Lingual Movement: Normal, Symmetric Lingual Speed of Movement: Normal Lingual Movement Strgth Against Opposition: Normal Lingual Movement Characteristics: Normal Velopharyngeal Movement: Normal Laryngeal Elevation: WFL Laryngeal Movement: Able to Palpate Rate of Intake: WFL Bolus Size: WFL Labial Seal: WFL Chewing: WFL Oral Prep Time: WFL A-P Transit: WFL Pocketing: None Timing of Swallow: WFL Coughing/Throat Clear: No Change in Voice: No Recommendations - Speech Evaluation, Impression/Plan Impression: Pt weith acute right CVA. Speech/language/swallowing intact. This is my first contact with this pt. Speech production is monotonous, affect flat. Pt needed to be asked several times to spit out her tic tac to assess her swallowing.Comprehension is intact, able to follow complex commands, and spell WORLD backwords. Insight may be impaired, although again, this may be pt's baseline. Pt able to read orally without left neglect.o x 3. - Dysphagia Impressions/Plan Swallowing Skills: WF Dysphagia Impressions: No Impairment *Silent aspiration: cannot be R/O at bedside Recommendations: Other (May benefit from further cognitive work up/tx upon d/c if deficits are observed by staff or family.) - Recommendations Diet Consistency: Regular Medication Administration: Whole with water Liquids: Thin Liquids
[2017-08-15 17:44] VITALS: BMI 21.6
[2017-08-15] MEDS ORDERED: ASPIRIN 325 MG TABLET PO SCH (18:00)
--- NOTE | 2017-08-15 18:03 | CON.NEURO ---
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 Musculoskeletal: Yes: Chronic low back pain Endocrine: Yes: Diabetes Mellitus Additional Medical History: dka in the past - Past Surgical History Past Surgical History: Yes: Cholecystectomy - Alcohol/Substance Use Hx Alcohol Use: No History of Substance Use: reports: None - Smoking History Smoking history: Current every day smoker Have you smoked in the past 12 months: Yes Aproximately how many cigarettes per day: 20 - Social History ADL: Independent History of Recent Travel: No Home Medications - Allergies Allergies/Adverse Reactions: Allergies Allergy/AdvReac Type Severity Reaction Status Date / Time No Known Allergies Allergy Verified 08/15/17 12:12 - Home Medications Home Medications: Ambulatory Orders Oxycodone HCl/Acetaminophen [Percocet 10-325 mg Tablet] 1 - 2 tab PO QID Insulin Sliding Scale [Novolog Vial Sliding Scale -] See Protocol SQ AC 30 Days units 12/07/15 Insulin Glargine,Hum.rec.anlog [Lantus Solostar PEN -] 10 units SQ HS 06/11/17 Ketorolac Tromethamine [Toradol -] 10 mg PO Q6H PRN #20 tablet 06/16/17 Pantoprazole Sodium [Protonix -] 20 mg PO DAILY #30 tablet.ec 06/16/17 Atorvastatin Ca [Lipitor] 10 mg PO HS 08/07/17 Morphine *Immediate Release* [Msir -] 2 tab PO QID 08/07/17 Ondansetron [Ondansetron Odt] 8 mg PO TID 30 Days #30 tab.rapdis 08/09/17 Physical Exam-Neuro Vital Signs: Vital Signs Temperature 98.8 F 08/15/17 17:15 Pulse Rate 64 08/15/17 17:15 Respiratory Rate 18 08/15/17 17:15 Blood Pressure 105/64 08/15/17 17:15 O2 Sat by Pulse Oximetry (%) 100 08/15/17 14:30 Labs: CBC, BMP 08/15/17 08:57 08/15/17 06:00 INR, PTT INR 0.95 (0.82-1.09) 08/15/17 00:55 Assessment/Plan cc left sided hemiparesis hpi 47 year old female history of DM, ? hld ,smoker, denies any cardiac history . She came with left sided hemiparesis. Patient has slurring of speech and facial drooling and left arm and leg weakness. Clinically she has been stable and her speech is improving, she is able to walk and arm still weak. She had ct head showed large right frontal lobe stroke. Her bp was unremarkable. She is able to 47yF with significant past medical history of IDDM, DKA presented to the ED with c/o left sided weakness and numbness since 530AM on 08/14/17. Pt denies headache. She pasesd swallowing PAST MEDICAL HISTORY: IDDM, gastroparesis, chronic back pain, migraine PAST SURGICAL HISTORY: cholecystectomy cyst removed from left shoulder Social History: Smokinppd Alcohol: pt denies Drugs: occ marijuana Family History: mother alive with no medical problems father with CAD, s/p stent in his 40s brother with diverticulitis Allergies No Known Allergies Allergy (Verified 06/11/17 18:21) HOME MEDICATIONS: 3 Medication Instructions Recorded Oxycodone HCl/Acetaminophen 1 - 2 tab PO QID 06/20/15 [Percocet 10-325 mg Tablet] Insulin Sliding Scale [Novolog See Protocol SQ AC 30 Days units 12/07/15 Vial Sliding Scale -] Insulin Glargine,Hum.rec.anlog 10 units SQ HS 06/11/17 [Lantus Solostar PEN -] Ketorolac Tromethamine [Toradol -] 10 mg PO Q6H PRN #20 tablet 06/16/17 Pantoprazole Sodium [Protonix -] 20 mg PO DAILY #30 tablet.ec 06/16/17 Atorvastatin Ca [Lipitor] 10 mg PO HS 08/07/17 Morphine *Immediate Release* [Msir 2 tab PO QID 08/07/17 -] Ondansetron [Ondansetron Odt] 8 mg PO TID 30 Days #30 tab.rapdis 08/09/17 SH,ROS, FH reviewed in chart Neurological Examination Alert oriented x 3, speech is slightly dysarthric and it is improving eomi, pupils is reactive, left sided facial paralysis Left upper extermity is grade 3 /5 and left lower strenght is grade 5/5 sensation is grossly normal ct head showed large right mca stroke with edema Assessment large right mca stroke. Clinically relatively stable. but given her age there is potential for cerebral edema. Spoke to nursing staff and we would transfer patient to [facility] hospital Plan-- Start aspirin and statin ( lipitor 80 mg once a day) - work up has been negative, including caotid ultrasound - she has been accepted - suggest to repeat ct head tomorrow - a routine mri of brain - consult neurosurgery if she got worse , for possible decompression surgery - If neurosurgery not available, consider transferring to [facility] - utox can be obtained - would sign out to dr guaman for follow up over the weekend, please call carbon lamp cleanerscallop binder -PT, DVT PROPHYLAXIS, SPEECH consult appreciated - Thanking you so much Mustapha Torres MD
--- NOTE | 2017-08-15 20:55 | CONSULT ---
Consult Consult Specialty:: pulm critical care Referred by:: Rao fernández Reason for Consultation:: Stroke - History of Present Illness Chief Complaint: Left arm weakness and numbness History of Present Illness: This is a 47 yo f w/ pmhx of IDDM, DKA, chronic back pain, 1PPD smoker, ?HL who presented to the [facility] ED w/ c/o left sided hemiparesis and numbness since 530AM on 08/14/17. She denied GOMEZ and was normotensive. Pt was noted to have slurring of speech,facial drooling, and left arm and leg weakness. Pt's head CT shows a 6.4 x 3.9 cm acute ischemic infarct of the right frontal lobe extending to the insulin of the right temporal lobe there is no acute hemorrhage mass effect or midline shift. Neurology consulted (NIH 3), and also passed a speech and swallow exam. Echo= trace MR, mild to mod TR, EF 59%. Carotid Doppler= no stenosis to common carotid/ cervical ICA, sml to mod non- calcified plaque in RCB, and very sml non-calc in LCB left ICA/CCA, PSV 1.1, EDV 1.5. She was transferred to [facility] for further management. Upon arrival to [facility] ICU, pt is alert and oriented x4 c/o left arm weakness and numbness since initial presentation of symptoms. She is speaking clearly, no aphasia, no slur appreciated on exam, +left arm drift noted, +weakness to left arm, full strength to b/l legs and right arm. She is able to walk w/o deficit ( found walking to sink in room, no ataxia). Labs remarkable for Na= 132, gluc= 200s. Started on ASA and lipitor, SSI. Repeat CMP ordered. Brain MRI ordered. - History Source History Provided By: Patient, Medical Record Limitations to Obtaining History: No Limitations - Past Medical History [employer]: Yes: Migraine Gastrointestinal: Yes: Other (Gastroparesis) ...LMP: 04/14/13 ...LMP Comment: 10 YEARS AGO. Musculoskeletal: Yes: Chronic low back pain Endocrine: Yes: Diabetes Mellitus Additional Medical History: dka in the past - Past Surgical History Past Surgical History: Yes: Cholecystectomy - Alcohol/Substance Use Hx Alcohol Use: No History of Substance Use: reports: None - Smoking History Smoking history: Current every day smoker Have you smoked in the past 12 months: Yes Aproximately how many cigarettes per day: 20 - Social History ADL: Independent History of Recent Travel: No Home Medications - Allergies Allergies/Adverse Reactions: Allergies Allergy/AdvReac Type Severity Reaction Status Date / Time No Known Allergies Allergy Verified 08/15/17 12:12 - Home Medications Home Medications: Ambulatory Orders Oxycodone HCl/Acetaminophen [Percocet 10-325 mg Tablet] 1 - 2 tab PO QID Insulin Sliding Scale [Novolog Vial Sliding Scale -] See Protocol SQ AC 30 Days units 12/07/15 Insulin Glargine,Hum.rec.anlog [Lantus Solostar PEN -] 10 units SQ HS 06/11/17 Ketorolac Tromethamine [Toradol -] 10 mg PO Q6H PRN #20 tablet 06/16/17 Pantoprazole Sodium [Protonix -] 20 mg PO DAILY #30 tablet.ec 06/16/17 Atorvastatin Ca [Lipitor] 10 mg PO HS 08/07/17 Morphine *Immediate Release* [Msir -] 2 tab PO QID 08/07/17 Ondansetron [Ondansetron Odt] 8 mg PO TID 30 Days #30 tab.rapdis 08/09/17 Family Disease History - Family Disease History Family History: Unremarkable Family Disease History: Heart Disease: Father (cad) Review of Systems - Review of Systems Constitutional: reports: Lethargy (greater to left arm with numbness), Weakness Eyes: reports: No Symptoms. denies: Blind Spots, Blurred Vision, Double Vision , Eye Pain, Floaters, Photophobia, Recent Change in Vision, Other HENT: reports: No Symptoms. denies: Difficult Swallowing, Ear Discharge, Ear Pain, Epistaxis, Gingival Bleeding, Hearing Loss, Mouth Swelling, Nasal Congestion, Ocular Prosthesis, Throat Pain, Toothache, Ringing in Ears, Other Neck: reports: No Symptoms. denies: Decreased ROM, Lumps, Pain on Movement, Stiffness, Swollen Glands, Tenderness, Other Cardiovascular: reports: No Symptoms. denies: Chest Pain, Edema, Palpitations, Shortness of Breath, Other Respiratory: reports: No Symptoms. denies: Cough, Exercise Intolerance, Hemoptysis, Orthopnea, PND, Snoring, SOB, SOB on Exertion, Wheezing, Other Gastrointestinal: reports: No Symptoms. denies: Abdominal Pain, Bloating, Constipation, Diarrhea, Dysphagia, Indigestion, Melena, Nausea, Rectal Bleeding , Vomiting, Vomiting Blood, Other Genitourinary: reports: No Symptoms. denies: Burning, Discharge, Dysuria, Flank Pain, Frequency, Hematuria, Incontinence, Lesions, Menses, Pain, Testicular Mass, Testicular Pain, Testicular Swelling, Urgency, Vaginal Bleeding , Other Breasts: reports: No Symptoms Reported. denies: See HPI, Breast Implants, Discharge from Nipple, Lumps, Pain, Skin Changes, Other Musculoskeletal: reports: No Symptoms, Back Pain (chronic). denies: Crepitus, Decreased ROM, Extremity Pain, Joint Pain, Joint Swelling, Muscle Pain, Muscle Cramps, Muscle Weakness, Other Integumentary: reports: No Symptoms. denies: Blister, Bruising, Change in Color , Eczema, Erythema, Incision, Lesions, Lump, Pallor, Pruritis, Rash, Wound, Other Neurological: reports: Numbness, Parasthesia (to left arm since 0508/14/17), Weakness. denies: Change in LOC, Change in Speech, Confusion, Dizziness, Headache, Incoordination, Pre-Existing Deficit, Seizure, Syncope, Tremors, Unsteady Gait Endocrine: reports: No Symptoms. denies: Excessive Sweating, Flushing, Increased Hunger, Increased Thirst, Intolerance to Cold, Intolerance to Heat, Unexplained Weight Gain, Unexplained Weight Loss, Other Hematology/Lymphatic: reports: No Symptoms. denies: Easily Bruised, Excessive Bleeding, Swollen Glands, Other Psychiatric: reports: No Symptoms. denies: Altered Sleep Pattern, Anxiety, Depression, Hallucinations, Panic, Paranoia, Suicidal, Other Pain Intensity: 0 Physical Exam Vital Signs: Vital Signs Temperature 98.0 F 08/15/17 19:30 Pulse Rate 66 08/15/17 19:30 Respiratory Rate 16 08/15/17 19:30 Blood Pressure 104/60 08/15/17 19:30 O2 Sat by Pulse Oximetry (%) 100 08/15/17 14:30 Constitutional: Yes: Well Nourished, No Distress, Calm. No: Anxious, Cachectic , Diaphoresis, Mild Distress, Pallor Eyes: Yes: WNL, Conjunctiva Clear, EOM Intact, PERRL HENT: Yes: WNL, Atraumatic, Normocephalic. No: Drooling Neck: Yes: WNL, Supple. No: Decreased ROM, Tenderness Cardiovascular: Yes: WNL, Regular Rate and Rhythm. No: Bradycardia, Tachycardia , Pulse Irregular, Bruit, JVD, Gallop, Murmur, Rub, S1, S2, S3, S4, Varicosities , Other Respiratory: Yes: WNL, Regular, CTA Bilaterally. No: Cough, Rales, Rhonchi, SOB on Exertion, Wheezes Gastrointestinal: Yes: WNL, Normal Bowel Sounds, Soft. No: Tenderness, Vomiting ...Rectal Exam: Yes: Deferred Renal/: Yes: WNL. No: , Vaginal Bleeding, Vaginal Discharge Breast(s): Yes: WNL Musculoskeletal: Yes: WNL Extremities: Yes: WNL Edema: Yes Edema: LUE: Trace, RUE: Trace Peripheral Pulses WNL: Yes Integumentary: Yes: WNL Wound/Incision: No: Clean/Dry, Well Approximated, Sutures Intact, Mikey Intact , Steri Strips, Open to air, Dressing Dry and Intact, Dressing Removed, [place] Removed, Sutures Removed, Draining, Reddened, Bleeding, Excoriated, Unapproximated, Other Neurological: Yes: Alert, Oriented, Numbness, Paresthesia, Weakness. No: Aphasia, Asterixis, Ataxia, Confusion, Facial Droop, Lethargy, Pre-Existing Deficit, Seizure, Tremors, Unsteady Gait ...Motor Strength: LUE Psychiatric: Yes: WNL, Alert, Oriented Labs: CBC, BMP 08/15/17 08:57 08/15/17 06:00 Imaging - Results Chest X-ray: Report Reviewed (clear) Cat Scan: Report Reviewed (acute ischemic infarct of the right frontal lobe extending to the insulin of the right temporal lobe there is no acute hemorrhage mass effect or midline shift.) Ultrasound: Report Reviewed, Other (Carotid doppler= no stenosis to common carotid/ cervical ICA, sml to mod non-calcified plaque in RCB, and very sml non- calc in LCB left ICA/CCA, PSV 1.1, EDV 1.5.) Other: Other (ECHOCARDIOGRAM= trace MR, mild to mod TR, EF 59%.) Problem List - Problems (1) Cerebrovascular accident (CVA) Code(s): I63.9 - CEREBRAL INFARCTION, UNSPECIFIED Qualifiers: CVA mechanism: unspecified Qualified Code(s): I63.9 - Cerebral infarction, unspecified (2) Hyponatremia Code(s): E87.1 - HYPO-OSMOLALITY AND HYPONATREMIA (3) Hyperglycemia, unspecified Code(s): R73.9 - HYPERGLYCEMIA, UNSPECIFIED (4) Chronic pain Code(s): G89.29 - OTHER CHRONIC PAIN Qualifiers: Chronic pain type: chronic pain syndrome Qualified Code(s): G89.4 - Chronic pain syndrome Assessment/Plan Assessment: This is a 47 yo f w/ pmhx of IDDM, DKA, chronic back pain, 1PPD smoker, ?HL who presented to the [facility] ED w/ c/o left sided hemiparesis and numbness since 530AM on 08/14/17 found to have an acute ischemic infarct of the right frontal lobe extending to the insulin of the right temporal lobe, no acute bleed, mass effect or midline shift. She was transferred to [facility] ICU for further management now with hyponatremia and hyperglycemia, but improved neuro s/s. Acute cerebral infarct Hyperglycemia Hyponatremia Chronic Back pain Plan: - asa and statin - Neuro following, recs appreciated (see note for detailed recs) - repeat CT head - MRI of brain - If condition were to worsen, consult neurosurgery - neuro checks q2h - f/u CMP given hyponatremia - NS @125cc/h - f/u Utox - passed speech and swallow, continue to monitor - SSI - f/s before meals and qHS - ambulates w/ assistance - AC deferred in setting of large infarct w/risk for hemorrhagic conversion Alexus Quintero, SAL[facility]- Pulm Critical Care
[2017-08-15] MEDS ORDERED: INSULIN DETEMIR 100 UNITS/ML MDV SQ SCH ×2 (22:00)
[2017-08-15] MEDS ORDERED: ATORVASTATIN CA 80 MG TABLET (FP) PO SCH ×2 (22:00)
[2017-08-15] MEDS ORDERED: ATORVASTATIN CA 10 MG TABLET (FP) PO SCH (22:00)
[2017-08-15] MEDS ORDERED: CHLORHEXIDINE GLUCONATE 4% CLEANSER FOR DECOLONIZATION TP SCH (22:00)
[2017-08-15] MEDS ORDERED: INSULIN SLIDING SCALE (NOVOLOG) 1 VIAL SQ SCH ×2 (22:00)
[2017-08-15 22:57] LABS: ALBUMIN 3.1 g/dl (3.4-5.0); ANION GAP 5 (8-16); BILIRUBIN,TOTAL 0.2 mg/dL (0.2-1.0); BLOOD UREA NITROGEN 12 mg/dL (7-18); CALCIUM 8.1 mg/dL (8.5-10.1); CHLORIDE 97 mmol/L (98-107); CO2 29 mmol/L (21-32); CREATININE 0.8 mg/dL (0.55-1.02); POTASSIUM 4.7 mmol/L (3.5-5.1); SGOT/AST 12 U/L (15-37); SGPT/ALT 14 U/L (12-78); SODIUM 131 mmol/L (136-145); TOT PROT 6.2 g/dl (6.4-8.2)
[2017-08-15 22:58] LABS: ALK PHOS 82 U/L (45-117)
[2017-08-15] MEDS: MUPIROCIN 2% TOPICAL OINTMENT FOR DECOLONIZATION NS SCH (23:01)
[2017-08-15 23:07] LABS: GLUCOSE,RANDOM 486 mg/dL (74-106)
[2017-08-15] MEDS ORDERED: SODIUM CHLORIDE 1,000 ML IV SCH (23:45)
[2017-08-16] MEDS: morphine SULFATE IMMEDIATE RELEASE 30 MG TAB PO SCH ×4 (00:56→17:27)
[2017-08-16] MEDS: INSULIN SLIDING SCALE (NOVOLOG) 1 VIAL SQ SCH ×4 (06:39→23:11)
[2017-08-16 07:01] LABS: HEMATOCRIT 32.7 % (32.4-45.2); HEMOGLOBIN 10.7 GM/dL (10.7-15.3); MCH 29.1 pg (25.7-33.7); MCHC 32.6 g/dl (32.0-36.0); MEAN CELL VOLUME 89.1 fl (80-96); MEAN PLT VOLUME 7.2 fl (7.5-11.1); PLATELET COUNT 498 K/MM3 (134-434); RBC 3.67 M/mm3 (3.60-5.2); RDW 14.5 % (11.6-15.6); WHITE BLOOD COUNT 8.8 K/mm3 (4.0-10.0)
[2017-08-16 07:09] LABS: ALBUMIN 2.8 g/dl (3.4-5.0); ALK PHOS 71 U/L (45-117); ANION GAP 8 (8-16); BILIRUBIN,TOTAL 0.2 mg/dL (0.2-1.0); BLOOD UREA NITROGEN 11 mg/dL (7-18); CALCIUM 7.9 mg/dL (8.5-10.1); CHLORIDE 103 mmol/L (98-107); CO2 28 mmol/L (21-32); CREATININE 0.6 mg/dL (0.55-1.02); GLUCOSE,RANDOM 86 mg/dL (74-106); MAGNESIUM 2.1 mg/dL (1.8-2.4); PHOSPHOROUS 4.2 mg/dL (2.5-4.9); SGOT/AST 11 U/L (15-37); SGPT/ALT 12 U/L (12-78); SODIUM 139 mmol/L (136-145); TOT PROT 5.8 g/dl (6.4-8.2)
--- NOTE | 2017-08-16 08:46 | PN ---
"Progress Note (short form) - Note Progress Note: Subjective: The patient was seen and examined at the bedside, she has no complaints at this time. She is stating she would like to get up to go to the bathroom Current Medications Generic Name Dose Route Start Last Admin Trade Name Freq PRN Reason Stop Dose Admin Acetaminophen 325 mg 08/15/17 20:49 08/15/17 22:59 Tylenol - PO 325 mg Q6H PRN Administration PAIN LEVEL 6-10 Aspirin 325 mg 08/16/17 10:00 08/16/17 11:22 Asa - PO 325 mg DAILY [facility] Administration Atorvastatin Calcium 80 mg 08/15/17 22:00 08/15/17 23:02 Lipitor - PO 80 mg HS [facility] Administration Chlorhexidine Gluconate 1 applic 08/15/17 22:00 08/15/17 23:01 Hibiclens For Decolonization - TP 1 applic HS [facility] Administration Insulin Aspart 1 vial 08/15/17 22:00 08/15/17 23:02 Novolog Vial Sliding Scale - SQ 8 units HS [facility] Administration Protocol Insulin Aspart 1 vial 08/16/17 07:00 08/16/17 12:45 Novolog Vial Sliding Scale - SQ 8 units TIDAC [facility] Administration Protocol Insulin Detemir 10 units 08/15/17 22:00 08/15/17 23:00 Levemir Vial SQ 10 units HS [facility] Administration Morphine Sulfate 60 mg 08/16/17 00:00 08/16/17 17:27 Msir - PO 60 mg Q6HPO [facility] Administration Mupirocin 1 applic 08/15/17 22:00 08/16/17 12:39 Bactroban Ointment (For Decolonization) - NS 08/20/17 21:59 1 applic BID [facility] Administration Ondansetron HCl 8 mg 08/15/17 20:49 Zofran Odt - SL Q8H PRN NAUSEA Oxycodone HCl 5 mg 08/15/17 20:49 08/15/17 23:00 Roxicodone - PO 5 mg Q6H PRN Administration PAIN LEVEL 6-10 Pantoprazole Sodium 20 mg 08/16/17 10:00 08/16/17 11:23 Protonix - PO 20 mg DAILY [facility] Administration Objective: Vital Signs Period Temp Pulse Resp BP Sys/Rapp Pulse Ox Last 24 Hr 98.0 F-98.7 F 59-78 12-20 84-121/58-72 97 Physical Exam: General: NAD, A&Ox3 Lungs: CTA bilaterally Heart: RRR, S1S2 Abd: Soft, non-tender, non-distended. Normoactive bowel sounds Ext: Warm, well-perfused Neuro: LUE 3/5 muscle strength, decreased sensation to sharp and soft touch CBCD WBC 8.8 K/mm3 (4.0-10.0) 08/16/17 05:40 RBC 3.67 M/mm3 (3.60-5.2) 08/16/17 05:40 Hgb 10.7 GM/dL (10.7-15.3) D 08/16/17 05:40 Hct 32.7 % (32.4-45.2) 08/16/17 05:40 MCV 89.1 fl (80-96) 08/16/17 05:40 MCHC 32.6 g/dl (32.0-36.0) 08/16/17 05:40 RDW 14.5 % (11.6-15.6) 08/16/17 05:40 Plt Count 498 K/MM3 (134-434) H 08/16/17 05:40 MPV 7.2 fl (7.5-11.1) L 08/16/17 05:40 CMP Sodium 139 mmol/L (136-145) 08/16/17 05:40 Potassium 4.0 mmol/L (3.5-5.1) 08/16/17 05:40 Chloride 103 mmol/L (98-107) 08/16/17 05:40 Carbon Dioxide 28 mmol/L (21-32) 08/16/17 05:40 Anion Gap 8 (8-16) 08/16/17 05:40 BUN 11 mg/dL (7-18) 08/16/17 05:40 Creatinine 0.6 mg/dL (0.55-1.02) 08/16/17 05:40 Creat Clearance w eGFR > 60 (>60) 08/16/17 05:40 Random Glucose 86 mg/dL (74-106) 08/16/17 05:40 Calcium 7.9 mg/dL (8.5-10.1) L 08/16/17 05:40 Total Bilirubin 0.2 mg/dL (0.2-1.0) 08/16/17 05:40 AST 11 U/L (15-37) L 08/16/17 05:40 ALT 12 U/L (12-78) 08/16/17 05:40 Alkaline Phosphatase 71 U/L (45-117) 08/16/17 05:40 Total Protein 5.8 g/dl (6.4-8.2) L 08/16/17 05:40 Albumin 2.8 g/dl (3.4-5.0) L 08/16/17 05:40 CARDIAC ENZYMES Creatine Kinase 96 IU/L (26-192) 08/15/17 00:55 Troponin I < 0.02 ng/ml (0.00-0.05) 08/15/17 00:55 Assessment: This is a 47 year old female with PMHx of IDDM, DKA, gastroparesis, chronic back pain, migraines, who presented to the ED with left arm numbness and weakness. Plan: 1) Large right middle MCA infarct - Concern fo extensive edema - Monitor mental status q2h, if change in status, repeat head CT - ECHO reviewed - Continue ASA - Continue statin - Anticoagulation deferred at this time in setting of large infarct with risk for hemorrhagic conversion - F/u hematology consult for hypercoaguable workup - Appreciate neuro consult 2) IDDM - ISS ACHS - Levemir 10u sq hs - BGM ACHS 3) Chronic back pain - Oxycodone prn - Please see health commerce below - Morphine 60mg q6h prn 4) F/E/N: - Diabetic diet - Monitor electrolytes 5) Prophylaxis: - Hold all chemical DVT prophylaxis per neuro 6) Dispo: - Requires continued inpatient care CODE STATUS: FULL CODE This report was requested by: Fern Hammer | Reference #: [id number] Patient Name: Ni Rosas Date: 1970 Address: [address] [place] [address] [place] [address] Sex: Female Rx Written Rx Dispensed Drug Quantity Days Supply Prescriber Name 07/21/2017 07/21/2017 morphine sulfate ir 30 mg tab 240 30 Pa Heard MD 07/21/2017 07/21/2017 oxycodone-acetaminophen 10-325 mg tablet 115 28 Pa Heard MD 06/20/2017 06/20/2017 morphine sulfate ir 30 mg tab 240 30 Pa Heard MD 06/20/2017 06/20/2017 oxycodone-acetaminophen 10-325 mg tab 115 28 Pa Heard MD 05/16/2017 05/16/2017 morphine sulfate ir 30 mg tab 240 30 Pa Heard MD 05/16/2017 05/16/2017 oxycodone-acetaminophen 10-325 mg tab 115 28 Pa Heard MD 04/16/2017 04/16/2017 morphine sulfate ir 30 mg tab 240 30 Pa Heard MD 04/16/2017 04/16/2017 oxycodone-acetaminophen 10-325 mg tab 115 28 Pa Heard MD 03/17/2017 03/17/2017 morphine sulfate ir 30 mg tab 240 30 Pa Heard MD 03/17/2017 03/17/2017 oxycodone-acetaminophen 10-325 mg tab 115 28 Pa Heard MD 02/14/2017 02/14/2017 morphine sulfate ir 30 mg tab 240 30 Pa Heard MD 02/14/2017 02/14/2017 oxycodone-acetaminophen 10-325 mg tab 115 28 Pa Heard MD 01/15/2017 01/15/2017 morphine sulfate ir 30 mg tab 240 30 Pa Heard MD 01/15/2017 01/15/2017 oxycodone-acetaminophen 10-325 mg tab 115 28 Pa Heard MD Visit type - Emergency Visit Emergency Visit: Yes ED Registration Date: 08/15/17 Care time: The patient presented to the Emergency Department on the above date and was hospitalized for further evaluation of their emergent condition. - New Patient This patient is new to me today: Yes Date on this admission: 08/16/17 - Critical Care Critical Care patient: No"
--- NOTE | 2017-08-16 09:02 | PN ---
Progress Note (short form) - Note Progress Note: Patient sen and examined in the ICU. Awake and alert. Weakness and numbness of the LUE. Otherwise no gross change in neuro exam. Denies CP or SOB. Intake & Output 08/13/17 08/14/1718 08/16/17 23:59 23:59 23:59 23:59 Intake Total 480 840 Balance 480 840 Weight 133 lb 130 lb 0.8 oz Last Vital Signs Temp Pulse Resp BP Pulse Ox 98.7 F 62 16 94/62 100 08/16/17 02:00 08/16/17 04:00 08/16/17 04:00 08/16/17 04:00 08/15/17 14:30 Active Medications Acetaminophen (Tylenol -) 325 mg PO Q6H PRN PRN Reason: PAIN LEVEL 6-10 Last Admin: 08/15/17 22:59 Dose: 325 mg Aspirin (Asa -) 325 mg PO DAILY [facility] Atorvastatin Calcium (Lipitor -) 80 mg PO HS [facility] Last Admin: 08/15/17 23:02 Dose: 80 mg Chlorhexidine Gluconate (Hibiclens For Decolonization -) 1 applic TP HS [facility] Last Admin: 08/15/17 23:01 Dose: 1 applic Sodium Chloride (Normal Saline -) 1,000 mls @ 125 mls/hr IV ASDIR [facility] Last Admin: 08/16/17 00:57 Dose: 125 mls/hr Insulin Aspart (Novolog Vial Sliding Scale -) 1 vial SQ HS [facility] PRN Reason: Protocol Last Admin: 08/15/17 23:02 Dose: 8 units Insulin Aspart (Novolog Vial Sliding Scale -) 1 vial SQ TIDAC [facility] PRN Reason: Protocol Last Admin: 08/16/17 06:39 Dose: Not Given Insulin Detemir (Levemir Vial) 10 units SQ HS [facility] Last Admin: 08/15/17 23:00 Dose: 10 units Morphine Sulfate (Msir -) 60 mg PO Q6HPO [facility] Last Admin: 08/16/17 05:23 Dose: 60 mg Mupirocin (Bactroban Ointment (For Decolonization) -) 1 applic NS BID [facility] Stop: 08/20/17 21:59 Last Admin: 08/15/17 23:01 Dose: 1 applic Ondansetron HCl (Zofran Odt -) 8 mg SL Q8H PRN PRN Reason: NAUSEA Oxycodone HCl (Roxicodone -) 5 mg PO Q6H PRN PRN Reason: PAIN LEVEL 6-10 Last Admin: 08/15/17 23:00 Dose: 5 mg Pantoprazole Sodium (Protonix -) 20 mg PO DAILY [facility] Constitutional: Yes: Well Nourished, No Distress, Calm. No: Anxious, Cachectic , Diaphoresis, Mild Distress, Pallor Eyes: Yes: WNL, Conjunctiva Clear, EOM Intact, PERRL HENT: Yes: WNL, Atraumatic, Normocephalic. No: Drooling Neck: Yes: WNL, Supple. No: Decreased ROM, Tenderness Cardiovascular: Yes: WNL, Regular Rate and Rhythm. No: Bradycardia, Tachycardia , Pulse Irregular, Bruit, JVD, Gallop, Murmur, Rub, S1, S2, S3, S4, Varicosities , Other Respiratory: Yes: WNL, Regular, CTA Bilaterally. No: Cough, Rales, Rhonchi, SOB on Exertion, Wheezes Gastrointestinal: Yes: WNL, Normal Bowel Sounds, Soft. No: Tenderness, Vomiting ...Rectal Exam: Yes: Deferred Renal/: Yes: WNL. Breast(s): Yes: WNL Musculoskeletal: Yes: WNL Extremities: Yes: WNL Edema: Yes Edema: LUE: Trace, RUE: Trace Peripheral Pulses WNL: Yes Integumentary: Yes: WNL Wound/Incision: No: Clean/Dry, Well Approximated, Sutures Intact, [place] Intact , Steri Strips, Open to air, Dressing Dry and Intact, Dressing Removed, Mikey Removed, Sutures Removed, Draining, Reddened, Bleeding, Excoriated, Unapproximated, Other Neurological: Yes: LUE 3/5 (+) numbness ...Motor Strength: LUE Psychiatric: Yes: WNL, Alert, Oriented Labs: Laboratory Results - last 24 hr 08/15/17 08/15/17 08/15/17 08:57 11:02 22:15 WBC 8.8 D RBC 3.92 Hgb 12.0 Hct 34.0 MCV 86.8 MCH 30.5 MCHC 35.1 RDW 13.8 Plt Count 668 H MPV 6.9 L Sodium 131 L Potassium 4.7 Chloride 97 L Carbon Dioxide 29 Anion Gap 5 L BUN 12 Creatinine 0.8 Creat Clearance w eGFR > 60 POC Glucometer [phone] Random Glucose 486 H* Calcium 8.1 L Phosphorus Magnesium Total Bilirubin 0.2 AST 12 L ALT 14 Alkaline Phosphatase 82 Total Protein 6.2 L Albumin 3.1 L 08/16/17 08/16/17 05:40 05:40 WBC 8.8 RBC 3.67 Hgb 10.7 D Hct 32.7 MCV 89.1 MCH 29.1 MCHC 32.6 RDW 14.5 Plt Count 498 H MPV 7.2 L Sodium 139 Potassium 4.0 Chloride 103 Carbon Dioxide 28 Anion Gap 8 BUN 11 Creatinine 0.6 Creat Clearance w eGFR > 60 POC Glucometer Random Glucose 86 Calcium 7.9 L Phosphorus 4.2 Magnesium 2.1 Total Bilirubin 0.2 AST 11 L ALT 12 Alkaline Phosphatase 71 Total Protein 5.8 L Albumin 2.8 L Problem List - Problems (1) Cerebrovascular accident (CVA) Code(s): I63.9 - CEREBRAL INFARCTION, UNSPECIFIED Qualifiers: CVA mechanism: unspecified Qualified Code(s): I63.9 - Cerebral infarction, unspecified (2) Hyponatremia Code(s): E87.1 - HYPO-OSMOLALITY AND HYPONATREMIA (3) Hyperglycemia, unspecified Code(s): R73.9 - HYPERGLYCEMIA, UNSPECIFIED (4) Chronic pain Code(s): G89.29 - OTHER CHRONIC PAIN Qualifiers: Chronic pain type: chronic pain syndrome Qualified Code(s): G89.4 - Chronic pain syndrome Assessment/Plan Acute cerebral infarct Hyperglycemia Hyponatremia Chronic Back pain Plan: - ASA and statin - MRI of brain - neuro checks - PO as tolerated - Glycemic control - AC deferred in setting of large infarct w/risk for hemorrhagic conversion - Permissive HTN <220/110 - Stroke unit Dr Otero Critical care time spent in reviewing chart, evaluating patient and formulating plan - 36 minutes.
[2017-08-16] MEDS ORDERED: PANTOPRAZOLE 20 MG TABLET (FP) PO SCH (10:00)
[2017-08-16] MEDS ORDERED: ASPIRIN 325 MG TABLET PO SCH (10:00)
[2017-08-16] MEDS: MUPIROCIN 2% TOPICAL OINTMENT FOR DECOLONIZATION NS SCH ×3 (12:39→23:12)
--- NOTE | 2017-08-16 13:30 | PN ---
Progress Note (short form) - Note Progress Note: Neurology HPI: Covering for Dr. Hobbs. 47 year old female history of DM, ? hld ,smoker, no cardiac history, p/w left sided hemiparesis and slurring of speech with facial drooling and left arm and leg weakness. Clinically she has been stable and her speech is improving, she is able to walk but still with LUE weakness. Ct head showed large right frontal lobe stroke. MRI brain also completed and reviewed and showed large right middle MCA infarct. She is in ICU getting critical care monitoring. Echo also reviewed and with normal LV function, EF 55-65%. Started on ASA and statin, explained pathophysiology to her and reason for the medication. Active Medications Acetaminophen (Tylenol -) 325 mg PO Q6H PRN PRN Reason: PAIN LEVEL 6-10 Last Admin: 08/15/17 22:59 Dose: 325 mg Aspirin (Asa -) 325 mg PO DAILY [facility] Last Admin: 08/16/17 11:22 Dose: 325 mg Atorvastatin Calcium (Lipitor -) 80 mg PO HS [facility] Last Admin: 08/15/17 23:02 Dose: 80 mg Chlorhexidine Gluconate (Hibiclens For Decolonization -) 1 applic TP HS [facility] Last Admin: 08/15/17 23:01 Dose: 1 applic Insulin Aspart (Novolog Vial Sliding Scale -) 1 vial SQ HS [facility] PRN Reason: Protocol Last Admin: 08/15/17 23:02 Dose: 8 units Insulin Aspart (Novolog Vial Sliding Scale -) 1 vial SQ TIDAC [facility] PRN Reason: Protocol Last Admin: 08/16/17 12:45 Dose: 8 units Insulin Detemir (Levemir Vial) 10 units SQ HS [facility] Last Admin: 08/15/17 23:00 Dose: 10 units Morphine Sulfate (Msir -) 60 mg PO Q6HPO [facility] Last Admin: 08/16/17 11:23 Dose: 60 mg Mupirocin (Bactroban Ointment (For Decolonization) -) 1 applic NS BID [facility] Stop: 08/20/17 21:59 Last Admin: 08/16/17 12:39 Dose: 1 applic Ondansetron HCl (Zofran Odt -) 8 mg SL Q8H PRN PRN Reason: NAUSEA Oxycodone HCl (Roxicodone -) 5 mg PO Q6H PRN PRN Reason: PAIN LEVEL 6-10 Last Admin: 08/15/17 23:00 Dose: 5 mg Pantoprazole Sodium (Protonix -) 20 mg PO DAILY [facility] Last Admin: 08/16/17 11:23 Dose: 20 mg Physical Exam-Neuro Vital Signs Temperature 98.5 F 08/16/17 10:00 Pulse Rate 78 08/16/17 12:00 Respiratory Rate 14 08/16/17 12:00 Blood Pressure 119/69 08/16/17 12:00 O2 Sat by Pulse Oximetry (%) 100 08/15/17 14:30 Neurological Examination Alert oriented x 3, speech is slightly dysarthric and it is improving eomi, pupils is reactive, left sided facial paralysis Left upper extermity is grade 3 /5 and left lower strenght is grade 5/5 sensation is grossly normal RRR, no murmurs lunds clear Abdomen soft, NT No rashes Pulses intact CBCD WBC 8.8 K/mm3 (4.0-10.0) 08/16/17 05:40 RBC 3.67 M/mm3 (3.60-5.2) 08/16/17 05:40 Hgb 10.7 GM/dL (10.7-15.3) D 08/16/17 05:40 Hct 32.7 % (32.4-45.2) 08/16/17 05:40 MCV 89.1 fl (80-96) 08/16/17 05:40 MCHC 32.6 g/dl (32.0-36.0) 08/16/17 05:40 RDW 14.5 % (11.6-15.6) 08/16/17 05:40 Plt Count 498 K/MM3 (134-434) H 08/16/17 05:40 MPV 7.2 fl (7.5-11.1) L 08/16/17 05:40 CMP Sodium 139 mmol/L (136-145) 08/16/17 05:40 Potassium 4.0 mmol/L (3.5-5.1) 08/16/17 05:40 Chloride 103 mmol/L (98-107) 08/16/17 05:40 Carbon Dioxide 28 mmol/L (21-32) 08/16/17 05:40 Anion Gap 8 (8-16) 08/16/17 05:40 BUN 11 mg/dL (7-18) 08/16/17 05:40 Creatinine 0.6 mg/dL (0.55-1.02) 08/16/17 05:40 Creat Clearance w eGFR > 60 (>60) 08/16/17 05:40 Calcium 7.9 mg/dL (8.5-10.1) L 08/16/17 05:40 Total Bilirubin 0.2 mg/dL (0.2-1.0) 08/16/17 05:40 AST 11 U/L (15-37) L 08/16/17 05:40 ALT 12 U/L (12-78) 08/16/17 05:40 Alkaline Phosphatase 71 U/L (45-117) 08/16/17 05:40 Total Protein 5.8 g/dl (6.4-8.2) L 08/16/17 05:40 Albumin 2.8 g/dl (3.4-5.0) L 08/16/17 05:[address] head reviewed MRI brain reviewed Echo reviewed Assessment/Plan Covering for Dr. Hobbs. 47 year old female history of DM, ? hld ,smoker, no cardiac history, p/w left sided hemiparesis and slurring of speech with facial drooling and left arm and leg weakness. Clinically she has been stable and her speech is improving, she is able to walk but still with LUE weakness. Ct head showed large right frontal lobe stroke. MRI brain also completed and reviewed and showed large right middle MCA infarct. \ She is in ICU getting critical care monitoring. Concern for extensive edema (which typically is worst 3-5 days after event) and would closely monitor mental status, repeat CT head stat for changes to exam Mental status at baseline currently MRI brain reviewed and discussed with her today Echo also reviewed and with normal LV function, EF 55-65%. Started on ASA and statin, explained pathophysiology to her and reason for the medication Continue ASA and statin, LDL goal < 70 as outpatient BP normotensive currently, can maintain < 130/80 as outpatient At this point, cryptogenic CVA, consider hypercoag workup/heme consult, especially since young patient with CVA physical therapy, discussed rehab with her Tight DM control, maintain euglycemic state Ambulating, DVT ppx Fall precautions Critical care time 40 mins
[2017-08-16] MEDS ORDERED: ONDANSETRON *ODT* 4 MG TABLET SL PRN (18:16)
[2017-08-16] MEDS: oxyCODONE HCL 5 MG TABLET PO PRN (20:11)
[2017-08-16] MEDS: ACETAMINOPHEN 325 MG TABLET (FP) PO PRN (20:15)
[2017-08-16] MEDS: CHLORHEXIDINE GLUCONATE 4% CLEANSER FOR DECOLONIZATION TP SCH (22:29)
[2017-08-16] MEDS: ATORVASTATIN CA 80 MG TABLET (FP) PO SCH (22:32)
[2017-08-16] MEDS: INSULIN DETEMIR 100 UNITS/ML MDV SQ SCH (23:09)
[2017-08-16] MEDS: morphine SULFATE IMMEDIATE RELEASE 30 MG TAB PO PRN (23:13)
[2017-08-17] MEDS: INSULIN SLIDING SCALE (NOVOLOG) 1 VIAL SQ SCH ×4 (06:06→22:03)
[2017-08-17 06:39] LABS: HEMATOCRIT 31.3 % (32.4-45.2); HEMOGLOBIN 10.3 GM/dL (10.7-15.3); MCH 29.4 pg (25.7-33.7); MEAN CELL VOLUME 88.9 fl (80-96); MEAN PLT VOLUME 7.6 fl (7.5-11.1); PLATELET COUNT 554 K/MM3 (134-434); RBC 3.52 M/mm3 (3.60-5.2); RDW 14.5 % (11.6-15.6); WHITE BLOOD COUNT 9.4 K/mm3 (4.0-10.0)
[2017-08-17 07:05] LABS: ALBUMIN 2.7 g/dl (3.4-5.0); ANION GAP 8 (8-16); BILIRUBIN,TOTAL 0.3 mg/dL (0.2-1.0); BLOOD UREA NITROGEN 10 mg/dL (7-18); CALCIUM 8.9 mg/dL (8.5-10.1); CHLORIDE 103 mmol/L (98-107); CO2 28 mmol/L (21-32); CREATININE 0.5 mg/dL (0.55-1.02); GLUCOSE,RANDOM 105 mg/dL (74-106); MAGNESIUM 2.1 mg/dL (1.8-2.4); PHOSPHOROUS 4.9 mg/dL (2.5-4.9); POTASSIUM 4.5 mmol/L (3.5-5.1); SGOT/AST 13 U/L (15-37); SGPT/ALT 11 U/L (12-78); SODIUM 139 mmol/L (136-145)
[2017-08-17 07:06] LABS: ALK PHOS 65 U/L (45-117); TOT PROT 5.8 g/dl (6.4-8.2)
--- NOTE | 2017-08-17 09:10 | PN ---
Progress Note (short form) - Note Progress Note: Patient seen and examined in the ICU. Awake and alert. No gross change in the weakness and numbness of the LUE. No new changes in Neuro. Denies CP or SOB. MRI: Large Right MCA Infarct Intake & Output 08/14/17 08/15/17 08/16/17 08/17/17 23:59 23:59 23:59 23:59 Intake Total 480 3140 480 Output Total 300 Balance 480 2840 480 Weight 133 lb 130 lb 0.8 oz 137 lb 1.6 oz Last Vital Signs Temp Pulse Resp BP Pulse Ox 98.2 F 63 18 127/71 97 08/17/17 02:00 08/17/17 05:30 08/17/17 05:30 08/17/17 05:30 08/16/17 20:19 Active Medications Acetaminophen (Tylenol -) 325 mg PO Q6H PRN PRN Reason: PAIN LEVEL 6-10 Last Admin: 08/16/17 20:15 Dose: 325 mg Aspirin (Asa -) 325 mg PO DAILY [facility] Atorvastatin Calcium (Lipitor -) 80 mg PO HS [facility] Last Admin: 08/16/17 22:32 Dose: 80 mg Chlorhexidine Gluconate (Hibiclens For Decolonization -) 1 applic TP HS [facility] Last Admin: 08/16/17 22:29 Dose: 1 applic Docusate Sodium (Colace -) 100 mg PO TID [facility] Insulin Aspart (Novolog Vial Sliding Scale -) 1 vial SQ HS [facility] PRN Reason: Protocol Last Admin: 08/16/17 23:11 Dose: 8 units Insulin Aspart (Novolog Vial Sliding Scale -) 1 vial SQ TIDAC [facility] PRN Reason: Protocol Last Admin: 08/17/17 06:06 Dose: Not Given Insulin Detemir (Levemir Vial) 10 units SQ HS [facility] Last Admin: 08/16/17 23:09 Dose: 10 units Morphine Sulfate (Msir -) 60 mg PO Q6H PRN PRN Reason: PAIN LEVEL 6-10 Last Admin: 08/16/17 23:13 Dose: 60 mg Mupirocin (Bactroban Ointment (For Decolonization) -) 1 applic NS BID [facility] Stop: 08/20/17 21:59 Last Admin: 08/16/17 23:12 Dose: 1 applic Ondansetron HCl (Zofran Odt -) 8 mg SL Q8H PRN PRN Reason: NAUSEA Oxycodone HCl (Roxicodone -) 5 mg PO Q6H PRN PRN Reason: PAIN LEVEL 1-5 Last Admin: 08/16/17 20:11 Dose: 5 mg Pantoprazole Sodium (Protonix -) 20 mg PO DAILY [facility] Constitutional: Yes: NAD, thin Eyes: Yes: WNL, Conjunctiva Clear, EOM Intact, PERRL HENT: Yes: WNL, Atraumatic, Normocephalic. No: Drooling Neck: Yes: WNL, Supple. No: Decreased ROM, Tenderness Cardiovascular: Yes: WNL, Regular Rate and Rhythm. No: Bradycardia, Tachycardia , Murmur, Rub Respiratory: Yes: WNL, Regular, CTA Bilaterally. No: Cough, Rales, Rhonchi, SOB on Exertion, Wheezes Gastrointestinal: Yes: WNL, Normal Bowel Sounds, Soft. No: Tenderness, Vomiting ...Rectal Exam: Yes: Deferred Renal/: Yes: WNL. Breast(s): Yes: WNL Musculoskeletal: Yes: WNL Extremities: Yes: WNL Edema: Yes Edema: LUE: Trace, RUE: Trace Peripheral Pulses WNL: Yes Integumentary: Yes: WNL Neurological: Yes: LUE 3/5 (+) numbness ...Motor Strength: LUE Psychiatric: Yes: WNL, Alert, Oriented Labs: Laboratory Results - last 24 hr 08/16/17 08/16/17 08/16/17 12:43 17:37 22:57 WBC RBC Hgb Hct MCV MCH MCHC RDW Plt Count MPV Sodium Potassium Chloride Carbon Dioxide Anion Gap BUN Creatinine Creat Clearance w eGFR POC Glucometer 367.56656 206.33754 > 400 Random Glucose Calcium Phosphorus Magnesium Total Bilirubin AST ALT Alkaline Phosphatase Total Protein Albumin 08/17/17 08/17/17 05:20 05:20 WBC 9.4 RBC 3.52 L Hgb 10.3 L Hct 31.3 L MCV 88.9 MCH 29.4 MCHC 33.0 RDW 14.5 Plt Count 554 H MPV 7.6 Sodium 139 Potassium 4.5 Chloride 103 Carbon Dioxide 28 Anion Gap 8 BUN 10 Creatinine 0.5 L Creat Clearance w eGFR > 60 POC Glucometer Random Glucose 105 Calcium 8.9 Phosphorus 4.9 Magnesium 2.1 Total Bilirubin 0.3 D AST 13 L ALT 11 L Alkaline Phosphatase 65 Total Protein 5.8 L Albumin 2.7 L Problem List - Problems (1) Cerebrovascular accident (CVA) Code(s): I63.9 - CEREBRAL INFARCTION, UNSPECIFIED Qualifiers: CVA mechanism: unspecified Qualified Code(s): I63.9 - Cerebral infarction, unspecified (2) Hyponatremia Code(s): E87.1 - HYPO-OSMOLALITY AND HYPONATREMIA (3) Hyperglycemia, unspecified Code(s): R73.9 - HYPERGLYCEMIA, UNSPECIFIED (4) Chronic pain Code(s): G89.29 - OTHER CHRONIC PAIN Qualifiers: Chronic pain type: chronic pain syndrome Qualified Code(s): G89.4 - Chronic pain syndrome Assessment/Plan Acute cerebral infarct Hyperglycemia Hyponatremia Chronic Back pain Plan: - ASA and statin - neuro checks - PO as tolerated - Glycemic control - Stroke unit Dr Otero Critical care time spent in reviewing chart, evaluating patient and formulating plan - 36 minutes.
[2017-08-17] MEDS: DOCUSATE SODIUM 100 MG CAPSULE (FP) PO SCH ×3 (09:13→21:44)
[2017-08-17] MEDS: PANTOPRAZOLE 20 MG TABLET (FP) PO SCH (09:18)
[2017-08-17] MEDS: ASPIRIN 325 MG TABLET PO SCH (09:18)
[2017-08-17] MEDS: ACETAMINOPHEN 325 MG TABLET (FP) PO PRN (09:18)
[2017-08-17] MEDS: MUPIROCIN 2% TOPICAL OINTMENT FOR DECOLONIZATION NS SCH ×3 (09:19→22:03)
--- NOTE | 2017-08-17 09:52 | CONSULT ---
Consult Consult Specialty:: Hematology/Oncology Reason for Consultation:: New onset CVA in young patient - History of Present Illness Chief Complaint: New onset CVA in a young patient History of Present Illness: 47 y/o female with Hx of DM, HLD, smoker, no previous cardiac history presented with left sided hemiparesis and slurring of speech with facial drooling and left arm and leg weakness. MRI brain shows the presence of a large right middle MCA infarct. Patient is currently in intensive care monitoring. She is on ASA + Statin and BP monitoring + frequent neuro checks. Hematology has been consulted for work-up of large CVA in a patient with no underlying cardiovascular history. On speaking with the patient today and reviewing her chart, she has had multiple previous admissions for uncontrolled diabetes. She is on insulin and poorly compliant with it. She says she cannot move her left arm and is forgetting a few things as we speak. She does not remember having had a stroke, cardiac event or DVT/PE in the past. She has had one voluntary as a teenager and no subsequent pregnancies. She is a heavy smoker and has a 35 pack year smoking history. Uses marijuana liberally but no other drugs. 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 Musculoskeletal: Yes: Chronic low back pain Endocrine: Yes: Diabetes Mellitus Additional Medical History: dka in the past - Past Surgical History Past Surgical History: Yes: Cholecystectomy - Alcohol/Substance Use Hx Alcohol Use: No History of Substance Use: reports: None - Smoking History Smoking history: Current every day smoker Have you smoked in the past 12 months: Yes Aproximately how many cigarettes per day: 20 - Social History ADL: Independent History of Recent Travel: No Home Medications - Allergies Allergies/Adverse Reactions: Allergies Allergy/AdvReac Type Severity Reaction Status Date / Time No Known Allergies Allergy Verified 08/15/17 12:12 - Home Medications Home Medications: Ambulatory Orders Oxycodone HCl/Acetaminophen [Percocet 10-325 mg Tablet] 1 - 2 tab PO QID Insulin Sliding Scale [Novolog Vial Sliding Scale -] See Protocol SQ AC 30 Days units 12/07/15 Insulin Glargine,Hum.rec.anlog [Lantus Solostar PEN -] 10 units SQ HS 06/11/17 Ketorolac Tromethamine [Toradol -] 10 mg PO Q6H PRN #20 tablet 06/16/17 Pantoprazole Sodium [Protonix -] 20 mg PO DAILY #30 tablet.ec 06/16/17 Atorvastatin Ca [Lipitor] 10 mg PO HS 08/07/17 Morphine *Immediate Release* [Msir -] 2 tab PO QID 08/07/17 Ondansetron [Ondansetron Odt] 8 mg PO TID 30 Days #30 tab.rapdis 08/09/17 Family Disease History - Family Disease History Family Disease History: Heart Disease: Father (cad) Review of Systems - Review of Systems Constitutional: reports: No Symptoms Eyes: reports: No Symptoms HENT: reports: No Symptoms Neck: reports: No Symptoms Cardiovascular: reports: Palpitations Respiratory: reports: No Symptoms Gastrointestinal: reports: No Symptoms Genitourinary: reports: No Symptoms, Hematuria Breasts: reports: No Symptoms Reported Musculoskeletal: reports: No Symptoms Integumentary: reports: No Symptoms Neurological: reports: Change in Speech, Confusion, Numbness, Pre-Existing Deficit, Weakness Endocrine: reports: No Symptoms Hematology/Lymphatic: reports: No Symptoms Psychiatric: reports: No Symptoms Physical Exam Vital Signs: Vital Signs Temperature 98.2 F 08/17/17 02:00 Pulse Rate 63 08/17/17 05:30 Respiratory Rate 18 08/17/17 05:30 Blood Pressure 127/71 08/17/17 05:30 O2 Sat by Pulse Oximetry (%) 97 08/16/17 20:19 Constitutional: Yes: Well Nourished Eyes: Yes: WNL HENT: Yes: Other (left facial deviation and decreased creases, smile on left side) Cardiovascular: Yes: WNL Respiratory: Yes: WNL Gastrointestinal: Yes: WNL Renal/: Yes: WNL Breast(s): Yes: WNL Musculoskeletal: Yes: WNL Extremities: Yes: WNL Integumentary: Yes: WNL Neurological: Yes: Confusion, Facial Droop, Numbness, Pre-Existing Deficit, Unsteady Gait (left sided hemiparesis) Labs: CBC, BMP 08/17/17 05:20 08/17/17 05:20 Assessment/Plan 47 y/o female with uncontrolled diabetes, HLD ,no prior cardiac Hx now presenting with large right sided MCA stroke. On speaking with patient, she does not have any familial or personal history of venous thromboembolism. There is no concern for a hereditary thrmbophilia and hence does not merit hypercoagulable work-up. She is however young and has a new onset arterial thrombosis (CVA) in the setting of uncontrolled diabetes and elevated triglycerides. Her hyperlipidemia and DM appear to be likely contributive to her new onset CVA. She is young at 47 yrs of age and factors contributing to arterial thrombosis can be worked up such as APLA, hyperhomocysteinemia and MPN. Would recommend sending 1.Anticardiolipin antibodies (aCL); IgG and IgM by enzyme-linked immunosorbent assay (STACIE). 2. [id number] I antibodies; IgG and IgM by STACIE 3.Lupus anticoagulant testing 4.Check blood/serum homocystein concentrations 5. check [id number] to work-up for myeloproliferative neoplasm as cause of arterial thrombosis due to elevated platelet counts > 500K Thank you for the consult and will continue to follow with you.
--- NOTE | 2017-08-17 12:44 | PN ---
Progress Note (short form) - Note Progress Note: Neurology HPI: Covering for Dr. Hobbs. 47 year old female history of DM, ? hld ,smoker, no cardiac history, p/w left sided hemiparesis and slurring of speech with facial drooling and left arm and leg weakness. Clinically she has been stable and her speech is improving, she is able to walk but still with LUE weakness. Ct head showed large right frontal lobe stroke. MRI brain also completed and reviewed and showed large right middle MCA infarct. She is in ICU getting critical care monitoring. Echo also reviewed and with normal LV function, EF 55-65%. Started on ASA and statin, spoke with father and fiance at bedside today and dicussed clinical course as well as future mgmt plans. Extensive conversation about smoking cessation, Diabetes control, and secondary prevention now that CVA occured. Heme/Onc consulted for hypercoag workup, note reviewed. Active Medications Acetaminophen (Tylenol -) 325 mg PO Q6H PRN PRN Reason: PAIN LEVEL 6-10 Last Admin: 08/17/17 09:18 Dose: 325 mg Aspirin (Asa -) 325 mg PO DAILY [facility] Last Admin: 08/17/17 09:18 Dose: 325 mg Atorvastatin Calcium (Lipitor -) 80 mg PO HS [facility] Last Admin: 08/16/17 22:32 Dose: 80 mg Chlorhexidine Gluconate (Hibiclens For Decolonization -) 1 applic TP HS [facility] Last Admin: 08/16/17 22:29 Dose: 1 applic Docusate Sodium (Colace -) 100 mg PO TID [facility] Last Admin: 08/17/17 09:13 Dose: 100 mg Insulin Aspart (Novolog Vial Sliding Scale -) 1 vial SQ HS [facility] PRN Reason: Protocol Last Admin: 08/16/17 23:11 Dose: 8 units Insulin Aspart (Novolog Vial Sliding Scale -) 1 vial SQ TIDAC [facility] PRN Reason: Protocol Last Admin: 08/17/17 12:16 Dose: 8 units Insulin Detemir (Levemir Vial) 10 units SQ HS [facility] Last Admin: 08/16/17 23:09 Dose: 10 units Morphine Sulfate (Msir -) 60 mg PO Q6H PRN PRN Reason: PAIN LEVEL 6-10 Last Admin: 08/16/17 23:13 Dose: 60 mg Mupirocin (Bactroban Ointment (For Decolonization) -) 1 applic NS BID [facility] Stop: 08/20/17 21:59 Last Admin: 08/17/17 09:19 Dose: 1 applic Ondansetron HCl (Zofran Odt -) 8 mg SL Q8H PRN PRN Reason: NAUSEA Last Admin: 08/17/17 11:37 Dose: 8 mg Oxycodone HCl (Roxicodone -) 5 mg PO Q6H PRN PRN Reason: PAIN LEVEL 1-5 Last Admin: 08/16/17 20:11 Dose: 5 mg Pantoprazole Sodium (Protonix -) 20 mg PO DAILY [facility] Last Admin: 08/17/17 09:18 Dose: 20 mg Physical Exam-Neuro Vital Signs Temperature 98.2 F 08/17/17 02:00 Pulse Rate 63 08/17/17 05:30 Respiratory Rate 18 08/17/17 05:30 Blood Pressure 127/71 08/17/17 05:30 O2 Sat by Pulse Oximetry (%) 97 08/16/17 20:19 Neurological Examination Alert oriented x 3, speech is slightly dysarthric and it is improving eomi, pupils is reactive, left sided facial paralysis Left upper extermity is grade 3 /5 and left lower strenght is grade 5/5 sensation is grossly normal RRR, no murmurs lunds clear Abdomen soft, NT No rashes Pulses intact CBCD WBC 9.4 K/mm3 (4.0-10.0) 08/17/17 05:20 RBC 3.52 M/mm3 (3.60-5.2) L 08/17/17 05:20 Hgb 10.3 GM/dL (10.7-15.3) L 08/17/17 05:20 Hct 31.3 % (32.4-45.2) L 08/17/17 05:20 MCV 88.9 fl (80-96) 08/17/17 05:20 MCHC 33.0 g/dl (32.0-36.0) 08/17/17 05:20 RDW 14.5 % (11.6-15.6) 08/17/17 05:20 Plt Count 554 K/MM3 (134-434) H 08/17/17 05:20 MPV 7.6 fl (7.5-11.1) 08/17/17 05:20 CMP Sodium 139 mmol/L (136-145) 08/17/17 05:20 Potassium 4.5 mmol/L (3.5-5.1) 08/17/17 05:20 Chloride 103 mmol/L (98-107) 08/17/17 05:20 Carbon Dioxide 28 mmol/L (21-32) 08/17/17 05:20 Anion Gap 8 (8-16) 08/17/17 05:20 BUN 10 mg/dL (7-18) 08/17/17 05:20 Creatinine 0.5 mg/dL (0.55-1.02) L 08/17/17 05:20 Creat Clearance w eGFR > 60 (>60) 08/17/17 05:20 Calcium 8.9 mg/dL (8.5-10.1) 08/17/17 05:20 Total Bilirubin 0.3 mg/dL (0.2-1.0) D 08/17/17 05:20 AST 13 U/L (15-37) L 08/17/17 05:20 ALT 11 U/L (12-78) L 08/17/17 05:20 Alkaline Phosphatase 65 U/L (45-117) 08/17/17 05:20 Total Protein 5.8 g/dl (6.4-8.2) L 08/17/17 05:20 Albumin 2.7 g/dl (3.4-5.0) L 08/17/17 05:[address] head reviewed MRI brain reviewed Echo reviewed Assessment/Plan Covering for Dr. Hobbs. 47 year old female history of DM, ? hld ,smoker, no cardiac history, p/w left sided hemiparesis and slurring of speech with facial drooling and left arm and leg weakness. Clinically she has been stable and her speech is improving, she is able to walk but still with LUE weakness. Ct head showed large right frontal lobe stroke. MRI brain also completed and reviewed and showed large right middle MCA infarct. \ She is in ICU getting critical care monitoring. Concern for extensive edema (which typically is worst 3-5 days after event) and would closely monitor mental status, repeat CT head stat for changes to exam Mental status at baseline currently MRI brain reviewed and discussed with her today Echo also reviewed and with normal LV function, EF 55-65%. Started on ASA and statin, explained pathophysiology to her and family Continue ASA and statin, LDL goal < 70 as outpatient BP normotensive currently, can maintain < 130/80 as outpatient At this point, cryptogenic CVA, heme onc consulted, hypercoag workup physical therapy, discussed rehab with her Tight DM control, maintain euglycemic state Smoking cessation discussed Secondary prevention, risk factor reduction discussed Ambulating, DVT ppx Fall precautions Critical care time 35 mins
[2017-08-17] MEDS: morphine SULFATE IMMEDIATE RELEASE 30 MG TAB PO PRN ×2 (15:08→21:45)
--- NOTE | 2017-08-17 18:08 | PN ---
"Progress Note (short form) - Note Progress Note: Subjective: The patient was seen and examined at the bedside, she has no complaints at this time Current Medications Generic Name Dose Route Start Last Admin Trade Name Freq PRN Reason Stop Dose Admin Acetaminophen 325 mg 08/16/17 18:16 08/17/17 09:18 Tylenol - PO 325 mg Q6H PRN Administration PAIN LEVEL 6-10 Aspirin 325 mg 08/17/17 10:00 08/17/17 09:18 Asa - PO 325 mg DAILY [facility] Administration Atorvastatin Calcium 80 mg 08/16/17 22:00 08/16/17 22:32 Lipitor - PO 80 mg HS [facility] Administration Chlorhexidine Gluconate 1 applic 08/16/17 22:00 08/16/17 22:29 Hibiclens For Decolonization - TP 1 applic HS [facility] Administration Docusate Sodium 100 mg 08/17/17 06:15 08/17/17 15:10 Colace - PO 100 mg TID [facility] Administration Insulin Aspart 1 vial 08/16/17 22:00 08/16/17 23:11 Novolog Vial Sliding Scale - SQ 8 units HS [facility] Administration Protocol Insulin Aspart 1 vial 08/17/17 07:00 08/17/17 16:37 Novolog Vial Sliding Scale - SQ 3 units TIDAC [facility] Administration Protocol Insulin Detemir 10 units 08/16/17 22:00 08/16/17 23:09 Levemir Vial SQ 10 units HS [facility] Administration Morphine Sulfate 60 mg 08/16/17 17:57 08/17/17 15:08 Msir - PO 60 mg Q6H PRN Administration PAIN LEVEL 6-10 Mupirocin 1 applic 08/16/17 22:00 08/17/17 09:19 Bactroban Ointment (For Decolonization) - NS 08/20/17 21:59 1 applic BID [facility] Administration Ondansetron HCl 8 mg 08/16/17 18:16 08/17/17 11:37 Zofran Odt - SL 8 mg Q8H PRN Administration NAUSEA Oxycodone HCl 5 mg 08/16/17 18:01 08/16/17 20:11 Roxicodone - PO 5 mg Q6H PRN Administration PAIN LEVEL 1-5 Pantoprazole Sodium 20 mg 08/17/17 10:00 08/17/17 09:18 Protonix - PO 20 mg DAILY [facility] Administration Objective: Vital Signs Period Temp Pulse Resp BP Sys/Rapp Pulse Ox Last 24 Hr 98.2 F-98.5 F 62-79 13-18 80-128/45-82 97-97 Physical Exam: General: NAD, A&Ox3 Lungs: CTA bilaterally Heart: RRR, S1S2 Abd: Soft, non-tender, non-distended. Normoactive bowel sounds Ext: Warm, well-perfused Neuro: LUE 3/5 muscle strength, decreased sensation to sharp and soft touch CBCD WBC 9.4 K/mm3 (4.0-10.0) 08/17/17 05:20 RBC 3.52 M/mm3 (3.60-5.2) L 08/17/17 05:20 Hgb 10.3 GM/dL (10.7-15.3) L 08/17/17 05:20 Hct 31.3 % (32.4-45.2) L 08/17/17 05:20 MCV 88.9 fl (80-96) 08/17/17 05:20 MCHC 33.0 g/dl (32.0-36.0) 08/17/17 05:20 RDW 14.5 % (11.6-15.6) 08/17/17 05:20 Plt Count 554 K/MM3 (134-434) H 08/17/17 05:20 MPV 7.6 fl (7.5-11.1) 08/17/17 05:20 CMP Sodium 139 mmol/L (136-145) 08/17/17 05:20 Potassium 4.5 mmol/L (3.5-5.1) 08/17/17 05:20 Chloride 103 mmol/L (98-107) 08/17/17 05:20 Carbon Dioxide 28 mmol/L (21-32) 08/17/17 05:20 Anion Gap 8 (8-16) 08/17/17 05:20 BUN 10 mg/dL (7-18) 08/17/17 05:20 Creatinine 0.5 mg/dL (0.55-1.02) L 08/17/17 05:20 Creat Clearance w eGFR > 60 (>60) 08/17/17 05:20 Random Glucose 105 mg/dL (74-106) 08/17/17 05:20 Calcium 8.9 mg/dL (8.5-10.1) 08/17/17 05:20 Total Bilirubin 0.3 mg/dL (0.2-1.0) D 08/17/17 05:20 AST 13 U/L (15-37) L 08/17/17 05:20 ALT 11 U/L (12-78) L 08/17/17 05:20 Alkaline Phosphatase 65 U/L (45-117) 08/17/17 05:20 Total Protein 5.8 g/dl (6.4-8.2) L 08/17/17 05:20 Albumin 2.7 g/dl (3.4-5.0) L 08/17/17 05:20 CARDIAC ENZYMES Creatine Kinase 96 IU/L (26-192) 08/15/17 00:55 Troponin I < 0.02 ng/ml (0.00-0.05) 08/15/17 00:55 Assessment: This is a 47 year old female with PMHx of IDDM, DKA, gastroparesis, chronic back pain, migraines, who presented to the ED with left arm numbness and weakness. Plan: 1) Large right middle MCA infarct - LUE weakness/numbness - Concern for extensive edema - Monitor mental status q2h, if change in status, repeat head CT - ECHO reviewed - Continue ASA - Continue statin - Anticoagulation deferred at this time in setting of large infarct with risk for hemorrhagic conversion - Appreciate hematology consult for hypercoaguable workup - Appreciate neuro consult 2) IDDM - ISS ACHS - Levemir 10u sq hs - BGM ACHS 3) Chronic back pain - Oxycodone prn - Morphine 60mg q6h prn - Please see health commerce below 4) F/E/N: - Diabetic diet - Monitor electrolytes 5) Prophylaxis: - Hold all chemical DVT prophylaxis per neuro - SCDs bilaterally 6) Dispo: - Requires continued inpatient care CODE STATUS: FULL CODE This report was requested by: Fern Hammer | Reference #: [id number] Patient Name: Ni Rosas Date: 1970 Address: [address] [place] [address] [place] [address] Sex: Female Rx Written Rx Dispensed Drug Quantity Days Supply Prescriber Name 07/21/2017 07/21/2017 morphine sulfate ir 30 mg tab 240 30 Pa Heard MD 07/21/2017 07/21/2017 oxycodone-acetaminophen 10-325 mg tablet 115 28 Pa Heard MD 06/20/2017 06/20/2017 morphine sulfate ir 30 mg tab 240 30 Pa Heard MD 06/20/2017 06/20/2017 oxycodone-acetaminophen 10-325 mg tab 115 28 Pa Heard MD 05/16/2017 05/16/2017 morphine sulfate ir 30 mg tab 240 30 Pa Heard MD 05/16/2017 05/16/2017 oxycodone-acetaminophen 10-325 mg tab 115 28 Pa Heard MD 04/16/2017 04/16/2017 morphine sulfate ir 30 mg tab 240 30 Pa Heard MD 04/16/2017 04/16/2017 oxycodone-acetaminophen 10-325 mg tab 115 28 Pa Heard MD 03/17/2017 03/17/2017 morphine sulfate ir 30 mg tab 240 30 Pa Heard MD 03/17/2017 03/17/2017 oxycodone-acetaminophen 10-325 mg tab 115 28 Pa Heard MD 02/14/2017 02/14/2017 morphine sulfate ir 30 mg tab 240 30 Pa Heard MD 02/14/2017 02/14/2017 oxycodone-acetaminophen 10-325 mg tab 115 28 Pa Heard MD 01/15/2017 01/15/2017 morphine sulfate ir 30 mg tab 240 30 Pa Heard MD 01/15/2017 01/15/2017 oxycodone-acetaminophen 10-325 mg tab 115 28 Pa Heard MD Visit type - Emergency Visit Emergency Visit: Yes ED Registration Date: 08/15/17 Care time: The patient presented to the Emergency Department on the above date and was hospitalized for further evaluation of their emergent condition. - New Patient This patient is new to me today: No - Critical Care Critical Care patient: No"
[2017-08-17] MEDS: oxyCODONE HCL 5 MG TABLET PO PRN (18:40)
[2017-08-17] MEDS: ATORVASTATIN CA 80 MG TABLET (FP) PO SCH (21:44)
[2017-08-17] MEDS: CHLORHEXIDINE GLUCONATE 4% CLEANSER FOR DECOLONIZATION TP SCH (21:44)
[2017-08-17] MEDS: INSULIN DETEMIR 100 UNITS/ML MDV SQ SCH (22:01)
[2017-08-18] MEDS: INSULIN SLIDING SCALE (NOVOLOG) 1 VIAL SQ SCH ×4 (06:32→22:32)
[2017-08-18] MEDS: DOCUSATE SODIUM 100 MG CAPSULE (FP) PO SCH ×3 (06:32→22:31)
[2017-08-18 06:50] LABS: BASO % 0.6 % (0-2.0); EOS % 1.5 % (0-4.5); HEMATOCRIT 30.6 % (32.4-45.2); HEMOGLOBIN 10.4 GM/dL (10.7-15.3); LYMPH % 46.3 % (8-40); MCH 29.9 pg (25.7-33.7); MCHC 33.9 g/dl (32.0-36.0); MEAN CELL VOLUME 88.2 fl (80-96); MEAN PLT VOLUME 7.4 fl (7.5-11.1); MONO % 9.3 % (3.8-10.2); NEUT % 42.3 % (42.8-82.8); PLATELET COUNT 537 K/MM3 (134-434); RBC 3.47 M/mm3 (3.60-5.2); RDW 14.6 % (11.6-15.6); WHITE BLOOD COUNT 7.9 K/mm3 (4.0-10.0)
[2017-08-18 06:54] LABS: ALBUMIN 2.6 g/dl (3.4-5.0); ALK PHOS 66 U/L (45-117); ANION GAP 6 (8-16); BILIRUBIN,TOTAL 0.4 mg/dL (0.2-1.0); BLOOD UREA NITROGEN 10 mg/dL (7-18); CALCIUM 8.2 mg/dL (8.5-10.1); CHLORIDE 102 mmol/L (98-107); CO2 30 mmol/L (21-32); CREATININE 0.6 mg/dL (0.55-1.02); GLUCOSE,RANDOM 122 mg/dL (74-106); POTASSIUM 4.5 mmol/L (3.5-5.1); SGOT/AST 15 U/L (15-37); SGPT/ALT 10 U/L (12-78); SODIUM 138 mmol/L (136-145); TOT PROT 5.6 g/dl (6.4-8.2)
--- NOTE | 2017-08-18 07:02 | PN ---
Progress Note, Physician Chief Complaint: 47 YOF with h/o IDDM, DKA, gastroparesis, chronic back pain, migraines, smoking , presented on 08/15 to ED with left hemiparesis, facial droop, slurred speech, found to have large right MCA infarct. Outside tPA window. 24 Hour Events: Patient ambulating in room, removes BP cuff and monitor. came over weekend and said she had been c/o arm numbness x2 weeks and more forgetful than normal (left pocketbook in grocery store x2). Subjective: Reports headache currently, nausea last night but no vomiting, no other new changes. 24 Hour I/O In: 1480cc Out: 500cc +3 unmeas Net: 980cc BM: None reported - Current Medication List Current Medications: Active Medications Acetaminophen (Tylenol -) 325 mg PO Q6H PRN PRN Reason: PAIN LEVEL 6-10 Last Admin: 08/17/17 09:18 Dose: 325 mg Aspirin (Asa -) 325 mg PO DAILY [facility] Last Admin: 08/17/17 09:18 Dose: 325 mg Atorvastatin Calcium (Lipitor -) 80 mg PO HS [facility] Last Admin: 08/17/17 21:44 Dose: 80 mg Chlorhexidine Gluconate (Hibiclens For Decolonization -) 1 applic TP HS [facility] Last Admin: 08/17/17 21:44 Dose: 1 applic Docusate Sodium (Colace -) 100 mg PO TID [facility] Last Admin: 08/18/17 06:32 Dose: 100 mg Insulin Aspart (Novolog Vial Sliding Scale -) 1 vial SQ HS [facility] PRN Reason: Protocol Last Admin: 08/17/17 22:03 Dose: 8 units Insulin Aspart (Novolog Vial Sliding Scale -) 1 vial SQ TIDAC [facility] PRN Reason: Protocol Last Admin: 08/18/17 06:32 Dose: Not Given Insulin Detemir (Levemir Vial) 10 units SQ HS [facility] Last Admin: 08/17/17 22:01 Dose: 10 units Morphine Sulfate (Msir -) 60 mg PO Q6H PRN PRN Reason: PAIN LEVEL 6-10 Last Admin: 08/17/17 21:45 Dose: 60 mg Mupirocin (Bactroban Ointment (For Decolonization) -) 1 applic NS BID [facility] Stop: 08/20/17 21:59 Last Admin: 08/17/17 22:03 Dose: 1 applic Ondansetron HCl (Zofran Odt -) 8 mg SL Q8H PRN PRN Reason: NAUSEA Last Admin: 08/17/17 11:37 Dose: 8 mg Oxycodone HCl (Roxicodone -) 5 mg PO Q6H PRN PRN Reason: PAIN LEVEL 1-5 Last Admin: 08/17/17 18:40 Dose: 5 mg Pantoprazole Sodium (Protonix -) 20 mg PO DAILY [facility] Last Admin: 08/17/17 09:18 Dose: 20 mg - Objective Vital Signs: Vital Signs Temperature 98.3 F 08/17/17 12:09 Pulse Rate 64 08/18/17 04:00 Respiratory Rate 16 08/18/17 04:00 Blood Pressure 105/59 08/18/17 04:00 O2 Sat by Pulse Oximetry (%) 97 08/17/17 20:27 Constitutional: Yes: Well Nourished, No Distress, Calm, Other (well-appearing adult female who is understandably frustrated with her medical condition and otherwise appropriate) Eyes: Yes: WNL, Conjunctiva Clear HENT: Yes: WNL, Atraumatic, Normocephalic Neck: Yes: WNL, Supple, Trachea Midline Cardiovascular: Yes: WNL, Regular Rate and Rhythm Respiratory: Yes: WNL, Regular, CTA Bilaterally Gastrointestinal: Yes: WNL, Normal Bowel Sounds, Soft Musculoskeletal: Yes: WNL Extremities: Yes: WNL. No: Cold, Cyanosis Edema: No Peripheral Pulses WNL: Yes Integumentary: Yes: WNL. No: Erythema Neurological: Yes: Alert, Oriented, Loss of Sensation (mild left), Other (LLE mild drift, left extremities with subjective mild numbness, LUE with difficulty with [id number]). No: Aphasia, Ataxia, Confusion, Dysarthria, Facial Droop , Unsteady Gait ...Motor Strength: LUE (4/5), LLE (4/5), RUE (5/5), RLE (5/5) Psychiatric: Yes: Alert, Oriented Labs: CBC, BMP 08/18/17 05:00 INR, PTT INR 0.95 (0.82-1.09) 08/15/17 00:55 Assessment/Plan 47 YOF with h/o IDDM, DKA, gastroparesis, chronic back pain, migraines, smoking , presented on 08/15 to ED with left hemiparesis, facial droop, slurred speech, found to have large right MCA infarct. Outside tPA window. Plan: 1) Large right middle MCA infarct. LUE>LLE weakness/numbness, concern for extensive edema - Monitor mental status q2h - If change in status, repeat head CT - ECHO reviewed - Continue ASA - Continue statin - Anticoagulation deferred at this time in setting of large infarct with risk for hemorrhagic conversion - F/U hematology recs for hypercoaguable workup, labs pending this AM - F/U neuro recs 2) IDDM - ISS ACHS - Levemir 10u sq hs - BGM ACHS 3) Chronic back pain - Oxycodone prn - Morphine 60mg q6h prn - Please see health commerce below 4) F/E/N: - Diabetic diet - Monitor electrolytes 5) Prophylaxis: - Hold all chemical DVT prophylaxis per neuro - SCDs bilaterally 6) Dispo: - Requires continued inpatient care - Can transfer today (tele for monitoring for potential of arrhythmia) Lines/tubes/drains: PIV CODE STATUS: FULL CODE NIH Stroke Scale - Last Known Well Date/Time & Onset Date Last Known Well: 08/14/17 - Initial Evaluation Level of consciousness: Alert Ask patient the month and their age: Answers both correctly Ask patient to open & close eyes; make fist and let go: Obeys both correctly Best gaze (horizontal eye movement): Normal Visual field testing: No visual field loss Facial paresis (Show teeth/raise eyebrows/close eyes tight): Normal symmetrical movement Motor Function: Left Arm: Normal Motor Function: Right Arm: Normal (extends arm 90 (or 45) degrees for 10 seconds without drift Motor Function: Left Leg: Drift Motor Function: Right Leg: Normal (extends leg 30 degrees for 5 seconds without drift) Limb Ataxia: Present in one limb Sensory(Use pinprick test arms,legs,trunk,face/side to side): Mild to moderate decrease in sensation Best language (Describe picture, name items, read sentences): No Aphasia Dysarthria (read several words): Normal articulation Extinction and Inattention: No abnormality - Total Score NIH Stroke Scale Score: 3
--- NOTE | 2017-08-18 09:00 | PN ---
Physical Exam: SUBJECTIVE: Patient seen and examined at the bedside. States she feels well, wants to go to rehab. Acknowledges being slightly forgetful OBJECTIVE: Left upper arm 2/5, mild edema of left extremity Ambulating in room, states she is having left lower ext numbness heme workup in progress Vital Signs Period Temp Pulse Resp BP Sys/Rapp Pulse Ox Last 24 Hr 98.3 F 60-72 14-18 80-142/45-96 97 GENERAL: The patient is awake, alert, and fully oriented, in no acute distress. HEAD: Normal with no signs of trauma. ENT: Ears normal, nares patent, oropharynx clear without exudates, moist mucous membranes. NECK: Trachea midline, full range of motion, supple. LUNGS: Breath sounds equal, diminished bilaterally HEART: Regular rate and rhythm, S1, S2 without murmur, rub or gallop. ABDOMEN: Soft, nontender, nondistended, normoactive bowel sounds, no guarding, no rebound, no hepatosplenomegaly, no masses. EXTREMITIES: no edema. NEUROLOGICAL: Normal speech, gait steady, left arm and left leg numbness as per pt PSYCH: Normal mood, normal affect. SKIN: Warm, dry, normal turgor, no rashes or lesions noted Laboratory Results - last 24 hr 08/15/17 08/17/17 08/17/17 22:29 05:44 12:08 WBC RBC Hgb Hct MCV MCH MCHC RDW Plt Count MPV Neutrophils % Lymphocytes % Monocytes % Eosinophils % Basophils % Sodium Potassium Chloride Carbon Dioxide Anion Gap BUN Creatinine Creat Clearance w eGFR POC Glucometer > 400 120.22655 360.82949 Random Glucose Calcium Total Bilirubin AST ALT Alkaline Phosphatase Total Protein Albumin 08/17/17 08/18/17 08/18/17 16:23 05:00 05:00 WBC 7.9 RBC 3.47 L Hgb 10.4 L Hct 30.6 L MCV 88.2 MCH 29.9 MCHC 33.9 RDW 14.6 Plt Count 537 H MPV 7.4 L Neutrophils % 42.3 L Lymphocytes % 46.3 H Monocytes % 9.3 Eosinophils % 1.5 Basophils % 0.6 Sodium 138 Potassium 4.5 Chloride 102 Carbon Dioxide 30 Anion Gap 6 L BUN 10 Creatinine 0.6 Creat Clearance w eGFR > 60 POC Glucometer 221.28327 Random Glucose 122 H Calcium 8.2 L Total Bilirubin 0.4 D AST 15 ALT 10 L Alkaline Phosphatase 66 Total Protein 5.6 L Albumin 2.6 L 08/18/17 05:28 WBC RBC Hgb Hct MCV MCH MCHC RDW Plt Count MPV Neutrophils % Lymphocytes % Monocytes % Eosinophils % Basophils % Sodium Potassium Chloride Carbon Dioxide Anion Gap BUN Creatinine Creat Clearance w eGFR POC Glucometer [phone] Random Glucose Calcium Total Bilirubin AST ALT Alkaline Phosphatase Total Protein Albumin Active Medications Generic Name Dose Route Start Last Admin Trade Name Freq PRN Reason Stop Dose Admin Acetaminophen 325 mg 08/16/17 18:16 08/17/17 09:18 Tylenol - PO 325 mg Q6H PRN Administration PAIN LEVEL 6-10 Aspirin 325 mg 08/17/17 10:00 08/17/17 09:18 Asa - PO 325 mg DAILY [facility] Administration Atorvastatin Calcium 80 mg 08/16/17 22:00 08/17/17 21:44 Lipitor - PO 80 mg HS [facility] Administration Chlorhexidine Gluconate 1 applic 08/16/17 22:00 08/17/17 21:44 Hibiclens For Decolonization - TP 1 applic HS [facility] Administration Docusate Sodium 100 mg 08/17/17 06:15 08/18/17 06:32 Colace - PO 100 mg TID [facility] Administration Insulin Aspart 1 vial 08/16/17 22:00 08/17/17 22:03 Novolog Vial Sliding Scale - SQ 8 units HS [facility] Administration Protocol Insulin Aspart 1 vial 08/17/17 07:00 08/18/17 06:32 Novolog Vial Sliding Scale - SQ Not Given TIDAC [facility] Protocol Insulin Detemir 10 units 08/16/17 22:00 08/17/17 22:01 Levemir Vial SQ 10 units HS [facility] Administration Morphine Sulfate 60 mg 08/16/17 17:57 08/17/17 21:45 Msir - PO 60 mg Q6H PRN Administration PAIN LEVEL 6-10 Mupirocin 1 applic 08/16/17 22:00 08/17/17 22:03 Bactroban Ointment (For Decolonization) - NS 08/20/17 21:59 1 applic BID [facility] Administration Ondansetron HCl 8 mg 08/16/17 18:16 08/17/17 11:37 Zofran Odt - SL 8 mg Q8H PRN Administration NAUSEA Oxycodone HCl 5 mg 08/16/17 18:01 08/17/17 18:40 Roxicodone - PO 5 mg Q6H PRN Administration PAIN LEVEL 1-5 Pantoprazole Sodium 20 mg 08/17/17 10:00 08/17/17 09:18 Protonix - PO 20 mg DAILY [facility] Administration ASSESSMENT/PLAN: Patient is a 47 year old female with a significant past medical history of diabetes, multiple hospitalizations for DKA, gastroparesis, chronic back pain and migraines. She presented to the ED on 08/15/2017 with left arm numbness and weakness and was found to have an acute CVA. Imaging: Brain MRI: Large right MCA territory acute infarction with no hemorrhagic components Neurology Large right middle MCA infarct, acute Continues to have left sided weakness/numbness, ambulates, but gait is not at her baseline Monitor mental status and repeat CT head stat for any AMS On full strength aspirin, on Lipitor 80mg daily Cryptogenic CVA, heme onc consulted and following No anticoagulation secondary to large risk of hemorrhagic conversion Heme work up in progress Physical therapy following Passed swallow evaluation Fall risk/precautions Endocrine: Diabetes, chronic BGMs, Novolog F.E.N. Fluids: tolerating PO Electrolytes: monitor Nutrition: diabetic diet Prophylaxis: GI: Protonix DVT: none due to large right stroke Visit type - Emergency Visit Emergency Visit: Yes ED Registration Date: 08/15/17 Care time: The patient presented to the Emergency Department on the above date and was hospitalized for further evaluation of their emergent condition. - New Patient This patient is new to me today: No - Critical Care Critical Care patient: No - Discharge Referral Referred to [facility] Med P.C.: No
[2017-08-18] MEDS: MUPIROCIN 2% TOPICAL OINTMENT FOR DECOLONIZATION NS SCH ×2 (09:12→22:31)
[2017-08-18] MEDS: ASPIRIN 325 MG TABLET PO SCH (09:12)
[2017-08-18] MEDS: PANTOPRAZOLE 20 MG TABLET (FP) PO SCH (09:13)
[2017-08-18] MEDS: oxyCODONE HCL 5 MG TABLET PO PRN ×2 (09:14→15:59)
[2017-08-18] MEDS: ACETAMINOPHEN 325 MG TABLET (FP) PO PRN ×2 (09:15→15:56)
--- NOTE | 2017-08-18 11:17 | PN ---
Teaching Attending Note Name of Resident: Keisha Perkins ATTENDING PHYSICIAN STATEMENT I saw and evaluated the patient. I reviewed the resident's note and discussed the case with the resident. I agree with the resident's findings and plan as documented. SUBJECTIVE: Pt seen and examined in the ICU. Still with LUE weakness but tolerating PO and states speech is improving. OBJECTIVE: Last Vital Signs Temp Pulse Resp BP Pulse Ox 99.3 F 71 12 90/63 97 08/18/17 10:00 08/18/17 10:00 08/18/17 10:00 08/18/17 10:00 08/18/17 09:00 Intake & Output 08/15/17 08/16/17 08/17/17 08/18/17 23:59 23:59 23:59 23:59 Intake Total 480 3140 1480 480 Output Total 300 500 Balance 480 2840 980 480 Weight 58.99 kg 62.188 kg 60.419 kg Gen: NAD at rest Heart: RRR Lung: decreased breath sounds at the bases Abd: soft, nontender Ext: LUE 3/5 CBC, BMP 08/18/17 05:00 08/18/17 05:00 Active Medications Acetaminophen (Tylenol -) 325 mg PO Q6H PRN PRN Reason: PAIN LEVEL 6-10 Last Admin: 08/18/17 09:15 Dose: 325 mg Aspirin (Asa -) 325 mg PO DAILY [facility] Last Admin: 08/18/17 09:12 Dose: 325 mg Atorvastatin Calcium (Lipitor -) 80 mg PO HS [facility] Last Admin: 08/17/17 21:44 Dose: 80 mg Chlorhexidine Gluconate (Hibiclens For Decolonization -) 1 applic TP HS [facility] Last Admin: 08/17/17 21:44 Dose: 1 applic Docusate Sodium (Colace -) 100 mg PO TID [facility] Last Admin: 08/18/17 06:32 Dose: 100 mg Insulin Aspart (Novolog Vial Sliding Scale -) 1 vial SQ HS [facility] PRN Reason: Protocol Last Admin: 08/17/17 22:03 Dose: 8 units Insulin Aspart (Novolog Vial Sliding Scale -) 1 vial SQ TIDAC [facility] PRN Reason: Protocol Last Admin: 08/18/17 06:32 Dose: Not Given Insulin Detemir (Levemir Vial) 10 units SQ HS [facility] Last Admin: 08/17/17 22:01 Dose: 10 units Morphine Sulfate (Msir -) 60 mg PO Q6H PRN PRN Reason: PAIN LEVEL 6-10 Last Admin: 08/17/17 21:45 Dose: 60 mg Mupirocin (Bactroban Ointment (For Decolonization) -) 1 applic NS BID [facility] Stop: 08/20/17 21:59 Last Admin: 08/18/17 09:12 Dose: 1 applic Ondansetron HCl (Zofran Odt -) 8 mg SL Q8H PRN PRN Reason: NAUSEA Last Admin: 08/17/17 11:37 Dose: 8 mg Oxycodone HCl (Roxicodone -) 5 mg PO Q6H PRN PRN Reason: PAIN LEVEL 1-5 Last Admin: 08/18/17 09:14 Dose: 5 mg Pantoprazole Sodium (Protonix -) 20 mg PO DAILY [facility] Last Admin: 08/18/17 09:13 Dose: 20 mg ASSESSMENT AND PLAN: Acute R MCA Stroke DM Hypercholesterolemia Thrombocytosis - continue ASA, statin - glucose control - rehab/PT - thrombocytosis work up in progress - can monitor on telemetry
--- NOTE | 2017-08-18 12:50 | PN ---
Progress Note (short form) - Note Progress Note: Neurology HPI: Covering for Dr. Hobbs. 47 year old female history of DM, ? hld ,smoker, no cardiac history, p/w left sided hemiparesis and slurring of speech with facial drooling and left arm and leg weakness. Clinically she has been stable and her speech is improving, she is able to walk but still with LUE weakness. Ct head showed large right frontal lobe stroke. MRI brain also completed and reviewed and showed large right middle MCA infarct. She was put in ICU getting critical care monitoring. Echo also reviewed and with normal LV function, EF 55-65%. Started on ASA and statin, spoke with father and fiance at bedside today and dicussed clinical course as well as future mgmt plans. Extensive conversation about smoking cessation, Diabetes control, and secondary prevention yesterday and reiterated today. Heme/Onc consulted for hypercoag workup, note reviewed. Patient for possible rehab placement. To be transferred to floor today. Active Medications Acetaminophen (Tylenol -) 325 mg PO Q6H PRN PRN Reason: PAIN LEVEL 6-10 Last Admin: 08/18/17 09:15 Dose: 325 mg Aspirin (Asa -) 325 mg PO DAILY [facility] Last Admin: 08/18/17 09:12 Dose: 325 mg Atorvastatin Calcium (Lipitor -) 80 mg PO HS [facility] Last Admin: 08/17/17 21:44 Dose: 80 mg Chlorhexidine Gluconate (Hibiclens For Decolonization -) 1 applic TP HS [facility] Last Admin: 08/17/17 21:44 Dose: 1 applic Docusate Sodium (Colace -) 100 mg PO TID [facility] Last Admin: 08/18/17 06:32 Dose: 100 mg Insulin Aspart (Novolog Vial Sliding Scale -) 1 vial SQ HS [facility] PRN Reason: Protocol Last Admin: 08/17/17 22:03 Dose: 8 units Insulin Aspart (Novolog Vial Sliding Scale -) 1 vial SQ TIDAC [facility] PRN Reason: Protocol Last Admin: 08/18/17 12:33 Dose: 6 units Insulin Detemir (Levemir Vial) 10 units SQ HS [facility] Last Admin: 08/17/17 22:01 Dose: 10 units Morphine Sulfate (Msir -) 60 mg PO Q6H PRN PRN Reason: PAIN LEVEL 6-10 Last Admin: 08/17/17 21:45 Dose: 60 mg Mupirocin (Bactroban Ointment (For Decolonization) -) 1 applic NS BID [facility] Stop: 08/20/17 21:59 Last Admin: 08/18/17 09:12 Dose: 1 applic Ondansetron HCl (Zofran Odt -) 8 mg SL Q8H PRN PRN Reason: NAUSEA Last Admin: 08/17/17 11:37 Dose: 8 mg Oxycodone HCl (Roxicodone -) 5 mg PO Q6H PRN PRN Reason: PAIN LEVEL 1-5 Last Admin: 08/18/17 09:14 Dose: 5 mg Pantoprazole Sodium (Protonix -) 20 mg PO DAILY [facility] Last Admin: 08/18/17 09:13 Dose: 20 mg Physical Exam-Neuro Vital Signs Period Temp Pulse Resp BP Sys/Rapp Pulse Ox Last 24 Hr 99.3 F 60-72 12-18 90-142/52-96 97-97 Neurological Examination Alert oriented x 3, speech is slightly dysarthric and it is improving eomi, pupils is reactive, left sided facial paralysis Left upper extermity is grade 3 /5 and left lower strenght is grade 5/5 sensation is grossly normal RRR, no murmurs lunds clear Abdomen soft, NT No rashes Pulses intact CBCD WBC 7.9 K/mm3 (4.0-10.0) 08/18/17 05:00 RBC 3.47 M/mm3 (3.60-5.2) L 08/18/17 05:00 Hgb 10.4 GM/dL (10.7-15.3) L 08/18/17 05:00 Hct 30.6 % (32.4-45.2) L 08/18/17 05:00 MCV 88.2 fl (80-96) 08/18/17 05:00 MCHC 33.9 g/dl (32.0-36.0) 08/18/17 05:00 RDW 14.6 % (11.6-15.6) 08/18/17 05:00 Plt Count 537 K/MM3 (134-434) H 08/18/17 05:00 MPV 7.4 fl (7.5-11.1) L 08/18/17 05:00 CMP Sodium 138 mmol/L (136-145) 08/18/17 05:00 Potassium 4.5 mmol/L (3.5-5.1) 08/18/17 05:00 Chloride 102 mmol/L (98-107) 08/18/17 05:00 Carbon Dioxide 30 mmol/L (21-32) 08/18/17 05:00 Anion Gap 6 (8-16) L 08/18/17 05:00 BUN 10 mg/dL (7-18) 08/18/17 05:00 Creatinine 0.6 mg/dL (0.55-1.02) 08/18/17 05:00 Creat Clearance w eGFR > 60 (>60) 08/18/17 05:00 Calcium 8.2 mg/dL (8.5-10.1) L 08/18/17 05:00 Total Bilirubin 0.4 mg/dL (0.2-1.0) D 08/18/17 05:00 AST 15 U/L (15-37) 08/18/17 05:00 ALT 10 U/L (12-78) L 08/18/17 05:00 Alkaline Phosphatase 66 U/L (45-117) 08/18/17 05:00 Total Protein 5.6 g/dl (6.4-8.2) L 08/18/17 05:00 Albumin 2.6 g/dl (3.4-5.0) L 08/18/17 05:[address] head reviewed MRI brain reviewed Echo reviewed Assessment/Plan Covering for Dr. Hobbs. 47 year old female history of DM, ? hld ,smoker, no cardiac history, p/w left sided hemiparesis and slurring of speech with facial drooling and left arm and leg weakness. Clinically she has been stable and her speech is improving, she is able to walk but still with LUE weakness. Ct head showed large right frontal lobe stroke. MRI brain also completed and reviewed and showed large right middle MCA infarct. \ She has been in ICU getting critical care monitoring. Concern for extensive edema (which typically is worst 3-5 days after event) and would closely monitor mental status, repeat CT head stat for changes to exam Mental status has been at baseline throughout weekend MRI brain reviewed and discussed with her Echo also reviewed and with normal LV function, EF 55-65%. Started on ASA and statin, explained pathophysiology to her and family during weekend LDL goal < 70 as outpatient BP normotensive currently, can maintain < 130/80 as outpatient At this point, cryptogenic CVA, heme onc consulted, hypercoag workup Tight DM control, maintain euglycemic state Smoking cessation discussed Secondary prevention, risk factor reduction discussed Ambulating, DVT ppx Fall precautions physical therapy, discussed rehab with her For transfer to floor today Critical care time 35 mins
--- NOTE | 2017-08-18 15:44 | PN ---
Progress Note (short form) - Note Progress Note: Patient seen and examined Complains of numbness and tingling and weakness of left hand and LE Last Vital Signs Temp Pulse Resp BP Pulse Ox 99.3 F 65 18 109/65 97 08/18/17 10:00 08/18/17 13:49 08/18/17 13:49 08/18/17 13:49 08/18/17 09:00 HEENT: AUTUMN, EOM Intact Oropharynx: No thrush, No mucositis Neck: Supple Cor: RSR, No murmurs, No gallops Lungs: Clear to P&A Abd: Soft, Normal bowel sounds, No organomegaly Ext:No significant edema Skin: No rashes, Integument intact LLE>LUE weakness CBC, BMP 08/18/17 05:00 08/18/17 05:00 Current Medications Generic Name Dose Route Start Last Admin Trade Name Freq PRN Reason Stop Dose Admin Acetaminophen 325 mg 08/16/17 18:16 08/18/17 09:15 Tylenol - PO 325 mg Q6H PRN Administration PAIN LEVEL 6-10 Aspirin 325 mg 08/17/17 10:00 08/18/17 09:12 Asa - PO 325 mg DAILY [facility] Administration Atorvastatin Calcium 80 mg 08/16/17 22:00 08/17/17 21:44 Lipitor - PO 80 mg HS [facility] Administration Chlorhexidine Gluconate 1 applic 08/16/17 22:00 08/17/17 21:44 Hibiclens For Decolonization - TP 1 applic HS [facility] Administration Docusate Sodium 100 mg 08/17/17 06:15 08/18/17 13:47 Colace - PO 100 mg TID [facility] Administration Insulin Aspart 1 vial 08/16/17 22:00 08/17/17 22:03 Novolog Vial Sliding Scale - SQ 8 units HS [facility] Administration Protocol Insulin Aspart 1 vial 08/17/17 07:00 08/18/17 12:33 Novolog Vial Sliding Scale - SQ 6 units TIDAC [facility] Administration Protocol Insulin Detemir 10 units 08/16/17 22:00 08/17/17 22:01 Levemir Vial SQ 10 units HS [facility] Administration Morphine Sulfate 60 mg 08/16/17 17:57 08/17/17 21:45 Msir - PO 60 mg Q6H PRN Administration PAIN LEVEL 6-10 Mupirocin 1 applic 08/16/17 22:00 08/18/17 09:12 Bactroban Ointment (For Decolonization) - NS 08/20/17 21:59 1 applic BID [facility] Administration Ondansetron HCl 8 mg 08/16/17 18:16 08/17/17 11:37 Zofran Odt - SL 8 mg Q8H PRN Administration NAUSEA Oxycodone HCl 5 mg 08/16/17 18:01 08/18/17 09:14 Roxicodone - PO 5 mg Q6H PRN Administration PAIN LEVEL 1-5 Pantoprazole Sodium 20 mg 08/17/17 10:00 08/18/17 09:13 Protonix - PO 20 mg DAILY [facility] Administration IMPRESSION: RIGHT MCA INFARCT SMOKING UP TO ONE PACK PER DAY, HPL, DIABETES MELLITUS RISK FACTORS. GRANDFATHER AND GRANDMOTHER ON FATHERS SIDE- BOTH WITH STROKES IN 50'S WILL NEED WORK UP-WILL NEED TO GET CLEARANCE FROM PATH OR OUT PATIENT
--- NOTE | 2017-08-18 19:56 | EKG ---
Test Reason : Blood Pressure : / mmHG Vent. Rate : 065 BPM Atrial Rate : 065 BPM P-R Int : 134 ms QRS Dur : 092 ms QT Int : 398 ms P-R-T Axes : 020 064 016 degrees QTc Int : 413 ms POOR DATA QUALITY, INTERPRETATION MAY BE ADVERSELY AFFECTED NORMAL SINUS RHYTHM NONSPECIFIC T WAVE ABNORMALITY WHEN COMPARED WITH ECG OF 07-AUG-2017 10:43, VENT. RATE HAS DECREASED BY 33 BPM Confirmed by JALIL MINAYA MD ([id number]) on 08/18/2017 7:56:07 PM Referred By: MD MATA Confirmed By:JALIL MINAYA MD
[2017-08-18] MEDS: morphine SULFATE IMMEDIATE RELEASE 30 MG TAB PO PRN (20:13)
[2017-08-18] MEDS: INSULIN DETEMIR 100 UNITS/ML MDV SQ SCH (22:31)
[2017-08-18] MEDS: ATORVASTATIN CA 80 MG TABLET (FP) PO SCH (22:31)
[2017-08-18] MEDS: CHLORHEXIDINE GLUCONATE 4% CLEANSER FOR DECOLONIZATION TP SCH (22:36)
[2017-08-19] MEDS: oxyCODONE HCL 5 MG TABLET PO PRN ×2 (03:46→10:52)
[2017-08-19] MEDS: ACETAMINOPHEN 325 MG TABLET (FP) PO PRN ×3 (03:47→23:55)
[2017-08-19] MEDS: INSULIN SLIDING SCALE (NOVOLOG) 1 VIAL SQ SCH ×4 (06:23→21:49)
[2017-08-19] MEDS: DOCUSATE SODIUM 100 MG CAPSULE (FP) PO SCH ×3 (06:23→21:29)
--- NOTE | 2017-08-19 09:32 | PN ---
Progress Note (short form) - Note Progress Note: 47 year old female history of DM, ? hld ,smoker, denies any cardiac history . She came with left sided hemiparesis. Patient has slurring of speech and facial drooling and left arm and leg weakness. Clinically she has been stable and her speech is improving, she is able to walk and arm still weak. She had ct head showed large right frontal lobe stroke. Her bp was unremarkable. She is able to 47yF with significant past medical history of IDDM, DKA presented to the ED with c/o left sided weakness and numbness since 530AM on 08/14/17. Pt denies headache. She pasesd swallowing, she has been stable and was in icu initially and was transferred to floor carotid ultrasound was normal. mri of brain done on aug 16 was reviewed showed large stroke Neurological Examination Alert oriented x 3, speech is slightly dysarthric and it is improving eomi, pupils is reactive, left sided facial paralysis Left upper extermity is grade 3 /5 and left lower strenght is grade 5/5 sensation is grossly normal exam is unchanged ct head showed large right mca stroke with edema mri of brain done on aug 16 reviewed carotid ultrasound was unremarkable Assessment large right mca stroke.clinically stable and was transferred from icu to floor Plan--continue statin and apisrin ( - repeat ct scan today, spoke to primary team - 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
[2017-08-19] MEDS: PANTOPRAZOLE 20 MG TABLET (FP) PO SCH (09:43)
[2017-08-19] MEDS: ASPIRIN 325 MG TABLET PO SCH (09:43)
[2017-08-19 10:11] LABS: EOS % 1.4 % (0-4.5); HEMATOCRIT 36.6 % (32.4-45.2); HEMOGLOBIN 12.1 GM/dL (10.7-15.3); LYMPH % 39.3 % (8-40); MCH 29.2 pg (25.7-33.7); MCHC 33.1 g/dl (32.0-36.0); MEAN CELL VOLUME 88.2 fl (80-96); MEAN PLT VOLUME 7.3 fl (7.5-11.1); MONO % 7.4 % (3.8-10.2); NEUT % 50.9 % (42.8-82.8); PLATELET COUNT 581 K/MM3 (134-434); RBC 4.15 M/mm3 (3.60-5.2); RDW 14.3 % (11.6-15.6); WHITE BLOOD COUNT 9.1 K/mm3 (4.0-10.0)
[2017-08-19] MEDS ORDERED: INSULIN DETEMIR 100 UNITS/ML MDV SQ SCH (10:38)
--- NOTE | 2017-08-19 10:39 | PN ---
Physical Exam: SUBJECTIVE: Patient seen and examined participating with physical therapy. Patient is willing to start physical therapy inpatient. She denies any headaches, visual defects. She was seen ambulating with a steady gait around the hospital pods. She reports left arm weakness. OBJECTIVE: Vital Signs Period Temp Pulse Resp BP Sys/Rapp Pulse Ox Last 24 Hr 97.9 F-98.7 F 60-72 18-18 96-128/55-81 97-98 GENERAL: The patient is awake, alert, and fully oriented, in no acute distress. HEAD: Normal with no signs of trauma. ENT: Ears normal, nares patent, oropharynx clear without exudates, moist mucous membranes. NECK: Trachea midline, full range of motion, supple. LUNGS: Breath sounds equal, diminished bilaterally HEART: Regular rate and rhythm, S1, S2 without murmur, rub or gallop. ABDOMEN: Soft, nontender, nondistended, normoactive bowel sounds, no guarding, no rebound, no hepatosplenomegaly, no masses. EXTREMITIES: no edema. NEUROLOGICAL: Normal speech, gait steady, left arm and left leg numbness as per pt PSYCH: Normal mood, normal affect. SKIN: Warm, dry, normal turgor, no rashes or lesions noted Laboratory Results - last 24 hr 08/18/17 08/18/17 08/18/17 12:28 17:19 21:10 WBC RBC Hgb Hct MCV MCH MCHC RDW Plt Count MPV Neutrophils % Lymphocytes % Monocytes % Eosinophils % Basophils % POC Glucometer 347 343 417 Random Glucose 08/18/17 08/19/17 08/19/17 21:11 01:31 05:35 WBC RBC Hgb Hct MCV MCH MCHC RDW Plt Count MPV Neutrophils % Lymphocytes % Monocytes % Eosinophils % Basophils % POC Glucometer 214 239 Random Glucose 475 H* 08/19/17 09:45 WBC 9.1 RBC 4.15 Hgb 12.1 D Hct 36.6 D MCV 88.2 MCH 29.2 MCHC 33.1 RDW 14.3 Plt Count 581 H MPV 7.3 L Neutrophils % 50.9 D Lymphocytes % 39.3 Monocytes % 7.4 Eosinophils % 1.4 Basophils % 1.0 POC Glucometer Random Glucose Active Medications Generic Name Dose Route Start Last Admin Trade Name Freq PRN Reason Stop Dose Admin Acetaminophen 325 mg 08/16/17 18:16 08/19/17 03:47 Tylenol - PO 325 mg Q6H PRN Administration PAIN LEVEL 6-10 Aspirin 325 mg 08/17/17 10:00 08/19/17 09:43 Asa - PO 325 mg DAILY [facility] Administration Atorvastatin Calcium 80 mg 08/16/17 22:00 08/18/17 22:31 Lipitor - PO 80 mg HS [facility] Administration Chlorhexidine Gluconate 1 applic 08/16/17 22:00 08/18/17 22:36 Hibiclens For Decolonization - TP Not Given HS [facility] Docusate Sodium 100 mg 08/17/17 06:15 08/19/17 06:23 Colace - PO Not Given TID [facility] Insulin Aspart 1 vial 08/16/17 22:00 08/18/17 22:32 Novolog Vial Sliding Scale - SQ 8 units HS [facility] Administration Protocol Insulin Aspart 1 vial 08/17/17 07:00 08/19/17 06:23 Novolog Vial Sliding Scale - SQ 3 units TIDAC [facility] Administration Protocol Morphine Sulfate 60 mg 08/16/17 17:57 08/18/17 20:13 Msir - PO 60 mg Q6H PRN Administration PAIN LEVEL 6-10 Mupirocin 1 applic 08/16/17 22:00 08/18/17 22:31 Bactroban Ointment (For Decolonization) - NS 08/20/17 21:59 1 applic BID [facility] Administration Ondansetron HCl 8 mg 08/16/17 18:16 08/17/17 11:37 Zofran Odt - SL 8 mg Q8H PRN Administration NAUSEA Oxycodone HCl 5 mg 08/16/17 18:01 08/19/17 03:46 Roxicodone - PO 5 mg Q6H PRN Administration PAIN LEVEL 1-5 Pantoprazole Sodium 20 mg 08/17/17 10:00 08/19/17 09:43 Protonix - PO 20 mg DAILY [facility] Administration ASSESSMENT/PLAN: Patient is a 47 year old female with a significant past medical history of diabetes, multiple hospitalizations for DKA, gastroparesis, chronic back pain and migraines. She presented to the ED on 08/15/2017 with left arm numbness and weakness and was found to have an acute CVA. Imaging: Brain MRI: Large right MCA territory acute infarction with no hemorrhagic components Head CT 08/19/17: large right middle cerebral artery territory acute/subacute infarct is again seen with edema and mass effect effacing the adjacent cortical sulci and without shift of the midline structures. No acute intracranial hemorrhage is identified. Neurology Large right middle MCA infarct, acute Continues to have left sided weakness/numbness, ambulates, but gait is not yet at her baseline Repeat head CT without change from previous On full strength aspirin, on Lipitor 80mg daily Cryptogenic CVA, heme onc consulted and following No anticoagulation secondary to large risk of hemorrhagic conversion Heme work up in progress Physical therapy following Passed swallow evaluation Fall risk/precautions Discharge planning to inpatient rehab in process Cardiology Post Stroke workup Cardiology notes reviewed Cardiology following Endocrine: Diabetes, chronic BGMs, Novolog Levemir increased to 20units Patient blood sugars remain labile F.E.N. Fluids: tolerating PO Electrolytes: monitor Nutrition: diabetic diet Prophylaxis: GI: Protonix DVT: none due to large right stroke Visit type - Emergency Visit Emergency Visit: Yes ED Registration Date: 08/15/17 Care time: The patient presented to the Emergency Department on the above date and was hospitalized for further evaluation of their emergent condition. - New Patient This patient is new to me today: No - Critical Care Critical Care patient: No - Discharge Referral Referred to [facility] Med P.C.: No
[2017-08-19] MEDS: MUPIROCIN 2% TOPICAL OINTMENT FOR DECOLONIZATION NS SCH ×2 (10:52→21:57)
[2017-08-19 10:55] LABS: CHLORIDE 99 mmol/L (98-107); SODIUM 134 mmol/L (136-145)
[2017-08-19] MEDS ORDERED: INSULIN (NOVOLOG) ASPART 100 UNITS/ML 10ML VIAL ONE (11:09)
[2017-08-19 11:12] LABS: ALBUMIN 3.2 g/dl (3.4-5.0); ALK PHOS 76 U/L (45-117); ANION GAP 7 (8-16); BILIRUBIN,TOTAL 0.4 mg/dL (0.2-1.0); BLOOD UREA NITROGEN 12 mg/dL (7-18); CALCIUM 8.6 mg/dL (8.5-10.1); CO2 28 mmol/L (21-32); CREATININE 0.6 mg/dL (0.55-1.02); GLUCOSE,RANDOM 138 mg/dL (74-106); SGPT/ALT 14 U/L (12-78); TOT PROT 6.8 g/dl (6.4-8.2)
[2017-08-19 11:13] LABS: MAGNESIUM 2.2 mg/dL (1.8-2.4); POTASSIUM 4.3 mmol/L (3.5-5.1); SGOT/AST 19 U/L (15-37)
--- NOTE | 2017-08-19 13:03 | PN ---
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 o x 3. Forgetful. Insight seems impaired. Pending possible transfer to [facility].
[2017-08-19 16:27] LABS: DRVVT - 31.5 sec (0.0-47.0)
[2017-08-19] MEDS: morphine SULFATE IMMEDIATE RELEASE 30 MG TAB PO PRN (16:48)
[2017-08-19] MEDS ORDERED: INSULIN (NOVOLOG) ASPART 100 UNITS/ML 10ML VIAL SQ ONE (17:30)
--- NOTE | 2017-08-19 17:51 | CON.CARD ---
Consult Consult Specialty:: cardiology Reason for Consultation:: left-sided numbness - History of Present Illness Chief Complaint: Pt A&Ox3; c/o left hand weakness since the CVA; left leg strength has nearly returned to normal History of Present Illness: This is a 47-year-old white female who comes in complaining of left-sided numbness and weakness times approximately 17 hours now. Symptoms began approximately 5:30 this morning and patient did not come in until now. Patient denies history of similar symptoms in the past. Patient was recently discharged from the hospital as she is a diabetic and had a episode of hyperglycemia. Hx opitate dependence (for chronic lower back pain); uncontrolled DM; daily cigarette smoker. - History Source History Provided By: Patient, Medical Record Limitations to Obtaining History: No Limitations - Past Medical History EXPLORATION ENGINEER: Yes: Migraine Gastrointestinal: Yes: Other (Gastroparesis) Reproductive: Yes: Postmenopausal ...LMP: 04/14/13 ...LMP Comment: 10 YEARS AGO. Musculoskeletal: Yes: Chronic low back pain Endocrine: Yes: Diabetes Mellitus Additional Medical History: dka in the past - Past Surgical History Past Surgical History: Yes: Cholecystectomy - Alcohol/Substance Use Hx Alcohol Use: No History of Substance Use: reports: None - Smoking History Smoking history: Current every day smoker Have you smoked in the past 12 months: Yes Aproximately how many cigarettes per day: 20 - Social History ADL: Independent History of Recent Travel: No Home Medications - Allergies Allergies/Adverse Reactions: Allergies Allergy/AdvReac Type Severity Reaction Status Date / Time No Known Allergies Allergy Verified 08/15/17 12:12 - Home Medications Home Medications: Ambulatory Orders Oxycodone HCl/Acetaminophen [Percocet 10-325 mg Tablet] 1 - 2 tab PO QID Insulin Sliding Scale [Novolog Vial Sliding Scale -] See Protocol SQ AC 30 Days units 12/07/15 Insulin Glargine,Hum.rec.anlog [Lantus Solostar PEN -] 10 units SQ HS 06/11/17 Ketorolac Tromethamine [Toradol -] 10 mg PO Q6H PRN #20 tablet 06/16/17 Pantoprazole Sodium [Protonix -] 20 mg PO DAILY #30 tablet.ec 06/16/17 Atorvastatin Ca [Lipitor] 10 mg PO HS 08/07/17 Morphine *Immediate Release* [Msir -] 2 tab PO QID 08/07/17 Ondansetron [Ondansetron Odt] 8 mg PO TID 30 Days #30 tab.rapdis 08/09/17 Family Disease History - Family Disease History Family Disease History: Heart Disease: Father (cad) Review of Systems - Review of Systems Constitutional: reports: Weakness Eyes: reports: No Symptoms HENT: reports: No Symptoms Neck: reports: No Symptoms Cardiovascular: reports: No Symptoms Respiratory: reports: No Symptoms - Risk Factors Known Risk Factors: Yes: Diabetes Mellitus, Hypercholesterolemia, Hypertension, Physical Inactivity, Smoking Vital Signs: Vital Signs Temperature 98.6 F 08/19/17 13:47 Pulse Rate 68 08/19/17 13:47 Respiratory Rate 18 08/19/17 13:47 Blood Pressure 101/53 08/19/17 13:47 O2 Sat by Pulse Oximetry (%) 98 08/19/17 09:00 - Other Data Labs, Other Data: CBC, BMP 08/19/17 09:45 08/19/17 09:45 INR, PTT INR 0.95 (0.82-1.09) 08/15/17 00:55 Problem List - Problems (1) Opiate abuse, continuous Assessment/Plan: On high-dose morphine and oxycodone for "back pain" x years. Code(s): F11.10 - OPIOID ABUSE, UNCOMPLICATED (2) Cerebrovascular accident (CVA) Assessment/Plan: left-sided weaknesss. On ASA 325 mg daily; f/u with neurologist. Agree with high-dose statin. Code(s): I63.9 - CEREBRAL INFARCTION, UNSPECIFIED Qualifiers: CVA mechanism: unspecified Qualified Code(s): I63.9 - Cerebral infarction, unspecified (3) Diabetic gastroparesis associated with type 1 diabetes mellitus Assessment/Plan: reports DM Type I ((though diagnoesd whtn she was in her early 30s). "I have a (regular) Pepsi habit (drinks several cans when her sugar is low). Code(s): E10.43 - TYPE 1 DIABETES W DIABETIC AUTONOMIC (POLY)NEUROPATHY; K31.84 - GASTROPARESIS (4) Oriental cardiac risk >20% in next 10 years Assessment/Plan: coronary artery evaluation (stress test) when stable. Code(s): Z91.89 - OTH PERSONAL RISK FACTORS, NOT ELSEWHERE CLASSIFIED
--- NOTE | 2017-08-19 21:16 | PROC ---
Procedure Note Procedure: Patient seen and examined participating in PT. HEENT: AUTUMN, EOM Intact Oropharynx: No thrush, No mucositis Neck: Supple Cor: RSR, No murmurs, No gallops Lungs: Clear to P&A Abd: Soft, Normal bowel sounds, No organomegaly Ext:No significant edema Skin: No rashes, Integument intact LLE>LUE weakness Last Vital Signs Temp Pulse Resp BP Pulse Ox 98.5 F 75 18 131/77 98 08/19/17 18:00 08/19/17 18:00 08/19/17 20:37 08/19/17 18:00 08/19/17 20:37 CBC, BMP 08/19/17 09:45 08/19/17 09:45 Current Medications Generic Name Dose Route Start Last Admin Trade Name Freq PRN Reason Stop Dose Admin Acetaminophen 325 mg 08/16/17 18:16 08/19/17 10:53 Tylenol - PO 325 mg Q6H PRN Administration PAIN LEVEL 6-10 Aspirin 325 mg 08/17/17 10:00 08/19/17 09:43 Asa - PO 325 mg DAILY [facility] Administration Atorvastatin Calcium 80 mg 08/16/17 22:00 08/18/17 22:31 Lipitor - PO 80 mg HS [facility] Administration Chlorhexidine Gluconate 1 applic 08/16/17 22:00 08/18/17 22:36 Hibiclens For Decolonization - TP Not Given HS [facility] Docusate Sodium 100 mg 08/17/17 06:15 08/19/17 13:42 Colace - PO 100 mg TID [facility] Administration Insulin Aspart 1 vial 08/16/17 22:00 08/18/17 22:32 Novolog Vial Sliding Scale - SQ 8 units HS [facility] Administration Protocol Insulin Aspart 1 vial 08/17/17 07:00 08/19/17 17:40 Novolog Vial Sliding Scale - SQ Not Given TIDAC [facility] Protocol Insulin Detemir 20 units 08/19/17 22:00 Levemir Vial SQ HS [facility] Mupirocin 1 applic 08/16/17 22:00 08/19/17 10:52 Bactroban Ointment (For Decolonization) - NS 08/20/17 21:59 Not Given BID [facility] Ondansetron HCl 8 mg 08/16/17 18:16 08/17/17 11:37 Zofran Odt - SL 8 mg Q8H PRN Administration NAUSEA Pantoprazole Sodium 20 mg 08/17/17 10:00 08/19/17 09:43 Protonix - PO 20 mg DAILY [facility] Administration IMPRESSION: RIGHT MCA INFARCT SMOKING UP TO ONE PACK PER DAY, HPL, DIABETES MELLITUS RISK FACTORS. GRANDFATHER AND GRANDMOTHER ON FATHERS SIDE- BOTH WITH STROKES IN 50'S WILL NEED WORK UP-sent today
[2017-08-19] MEDS: ATORVASTATIN CA 80 MG TABLET (FP) PO SCH (21:29)
[2017-08-19] MEDS: CHLORHEXIDINE GLUCONATE 4% CLEANSER FOR DECOLONIZATION TP SCH (21:29)
[2017-08-19] MEDS: INSULIN DETEMIR 100 UNITS/ML MDV SQ SCH (21:51)
[2017-08-19] MEDS ORDERED: ZOLPIDEM TARTRATE 5 MG TABLET PO ONE (22:00)
[2017-08-19] MEDS ORDERED: oxyCODONE HCL 5 MG TABLET PO ONE (23:45)
[2017-08-20] MEDS: DOCUSATE SODIUM 100 MG CAPSULE (FP) PO SCH ×3 (05:32→22:11)
[2017-08-20] MEDS: ACETAMINOPHEN 325 MG TABLET (FP) PO PRN ×2 (05:33→10:21)
[2017-08-20] MEDS ORDERED: oxyCODONE HCL 5 MG TABLET PO ONE ×2 (06:31→10:30)
[2017-08-20] MEDS: INSULIN SLIDING SCALE (NOVOLOG) 1 VIAL SQ SCH ×4 (06:43→22:20)
[2017-08-20 07:12] LABS: HEMATOCRIT 36.3 % (32.4-45.2); HEMOGLOBIN 11.9 GM/dL (10.7-15.3); MCHC 32.9 g/dl (32.0-36.0); MEAN CELL VOLUME 88.3 fl (80-96); MEAN PLT VOLUME 7.5 fl (7.5-11.1); PLATELET COUNT 543 K/MM3 (134-434); RBC 4.11 M/mm3 (3.60-5.2); RDW 14.4 % (11.6-15.6); WHITE BLOOD COUNT 7.3 K/mm3 (4.0-10.0)
[2017-08-20 08:03] LABS: ALBUMIN 2.9 g/dl (3.4-5.0); ANION GAP 13 (8-16); BLOOD UREA NITROGEN 14 mg/dL (7-18); CALCIUM 8.9 mg/dL (8.5-10.1); CHLORIDE 105 mmol/L (98-107); CO2 22 mmol/L (21-32); GLUCOSE,RANDOM 59 mg/dL (74-106); MAGNESIUM 2.5 mg/dL (1.8-2.4); POTASSIUM 4.3 mmol/L (3.5-5.1); SGOT/AST 15 U/L (15-37); SGPT/ALT 12 U/L (12-78); SODIUM 140 mmol/L (136-145)
[2017-08-20 08:05] LABS: ALK PHOS 67 U/L (45-117); BILIRUBIN,TOTAL 0.3 mg/dL (0.2-1.0); CREATININE 0.5 mg/dL (0.55-1.02); TOT PROT 6.4 g/dl (6.4-8.2)
[2017-08-20] MEDS: ASPIRIN 325 MG TABLET PO SCH (09:15)
[2017-08-20] MEDS: PANTOPRAZOLE 20 MG TABLET (FP) PO SCH (09:16)
[2017-08-20] MEDS: MUPIROCIN 2% TOPICAL OINTMENT FOR DECOLONIZATION NS SCH (09:16)
[2017-08-20 09:54] LABS: ANISOCYTOSIS 0; MACROCYTOSIS 0; PLATELET ESTIMATE INCREASED
--- NOTE | 2017-08-20 11:50 | PN ---
"Progress Note (short form) - Note Progress Note: Subjective: The patient was seen and examined at the bedside, she has complaints of back pain She was seen evaluating around the unit with a steady gait Current Medications Generic Name Dose Route Start Last Admin Trade Name Freq PRN Reason Stop Dose Admin Acetaminophen 325 mg 08/16/17 18:16 08/17/17 09:18 Tylenol - PO 325 mg Q6H PRN Administration PAIN LEVEL 6-10 Aspirin 325 mg 08/17/17 10:00 08/17/17 09:18 Asa - PO 325 mg DAILY [facility] Administration Atorvastatin Calcium 80 mg 08/16/17 22:00 08/16/17 22:32 Lipitor - PO 80 mg HS [facility] Administration Chlorhexidine Gluconate 1 applic 08/16/17 22:00 08/16/17 22:29 Hibiclens For Decolonization - TP 1 applic HS [facility] Administration Docusate Sodium 100 mg 08/17/17 06:15 08/17/17 15:10 Colace - PO 100 mg TID [facility] Administration Insulin Aspart 1 vial 08/16/17 22:00 08/16/17 23:11 Novolog Vial Sliding Scale - SQ 8 units HS [facility] Administration Protocol Insulin Aspart 1 vial 08/17/17 07:00 08/17/17 16:37 Novolog Vial Sliding Scale - SQ 3 units TIDAC [facility] Administration Protocol Insulin Detemir 10 units 08/16/17 22:00 08/16/17 23:09 Levemir Vial SQ 10 units HS [facility] Administration Morphine Sulfate 60 mg 08/16/17 17:57 08/17/17 15:08 Msir - PO 60 mg Q6H PRN Administration PAIN LEVEL 6-10 Mupirocin 1 applic 08/16/17 22:00 08/17/17 09:19 Bactroban Ointment (For Decolonization) - NS 08/20/17 21:59 1 applic BID [facility] Administration Ondansetron HCl 8 mg 08/16/17 18:16 08/17/17 11:37 Zofran Odt - SL 8 mg Q8H PRN Administration NAUSEA Oxycodone HCl 5 mg 08/16/17 18:01 08/16/17 20:11 Roxicodone - PO 5 mg Q6H PRN Administration PAIN LEVEL 1-5 Pantoprazole Sodium 20 mg 08/17/17 10:00 08/17/17 09:18 Protonix - PO 20 mg DAILY [facility] Administration Objective: Vital Signs Period Temp Pulse Resp BP Sys/Rapp Pulse Ox Last 24 Hr 98.2 F-98.5 F 62-79 13-18 80-128/45-82 97-97 Physical Exam: General: NAD, A&Ox3 Lungs: CTA bilaterally Heart: RRR, S1S2 Abd: Soft, non-tender, non-distended. Normoactive bowel sounds Ext: Warm, well-perfused Neuro: LUE 3/5 muscle strength, decreased sensation to sharp and soft touch CBCD WBC 7.3 K/mm3 (4.0-10.0) 08/20/17 05:05 RBC 4.11 M/mm3 (3.60-5.2) 08/20/17 05:05 Hgb 11.9 GM/dL (10.7-15.3) 08/20/17 05:05 Hct 36.3 % (32.4-45.2) 08/20/17 05:05 MCV 88.3 fl (80-96) 08/20/17 05:05 MCHC 32.9 g/dl (32.0-36.0) 08/20/17 05:05 RDW 14.4 % (11.6-15.6) 08/20/17 05:05 Plt Count 543 K/MM3 (134-434) H 08/20/17 05:05 MPV 7.5 fl (7.5-11.1) 08/20/17 05:05 CMP Sodium 140 mmol/L (136-145) 08/20/17 05:05 Potassium 4.3 mmol/L (3.5-5.1) 08/20/17 05:05 Chloride 105 mmol/L (98-107) 08/20/17 05:05 Carbon Dioxide 22 mmol/L (21-32) 08/20/17 05:05 Anion Gap 13 (8-16) 08/20/17 05:05 BUN 14 mg/dL (7-18) 08/20/17 05:05 Creatinine 0.5 mg/dL (0.55-1.02) L 08/20/17 05:05 Creat Clearance w eGFR > 60 (>60) 08/20/17 05:05 Random Glucose 59 mg/dL (74-106) L 08/20/17 05:05 Calcium 8.9 mg/dL (8.5-10.1) 08/20/17 05:05 Total Bilirubin 0.3 mg/dL (0.2-1.0) D 08/20/17 05:05 AST 15 U/L (15-37) 08/20/17 05:05 ALT 12 U/L (12-78) 08/20/17 05:05 Alkaline Phosphatase 67 U/L (45-117) 08/20/17 05:05 Total Protein 6.4 g/dl (6.4-8.2) 08/20/17 05:05 Albumin 2.9 g/dl (3.4-5.0) L 08/20/17 05:05 CARDIAC ENZYMES Creatine Kinase 96 IU/L (26-192) 08/15/17 00:55 Troponin I < 0.02 ng/ml (0.00-0.05) 08/15/17 00:55 Assessment: This is a 47 year old female with PMHx of IDDM, DKA, gastroparesis, chronic back pain, migraines, who presented to the ED with left arm numbness and weakness. Plan: 1) Large right middle MCA infarct - Cryptogenic CVA - LUE weakness/numbness - Concern for extensive edema - Monitor mental status - ECHO reviewed - Discussed with Dr. Reynolds, will reevaluate today for possible TYRON - Continue ASA - Continue statin - Anticoagulation deferred at this time in setting of large infarct with risk for hemorrhagic conversion - Appreciate hematology consult for hypercoaguable workup - Appreciate neuro consult 2) IDDM - ISS ACHS - Levemir 10u sq hs - BGM ACHS 3) Chronic back pain - Oxycodone prn - Morphine 60mg q6h prn - Please see health commerce below 4) F/E/N: - Diabetic diet - Monitor electrolytes 5) Prophylaxis: - Hold all chemical DVT prophylaxis per neuro - SCDs bilaterally 6) Dispo: - Requires continued inpatient care CODE STATUS: FULL CODE This report was requested by: Fern Hammer | Reference #: [id number] Patient Name: Ni Rosas Date: 1970 Address: [address] [place] [address] [place] [address] Sex: Female Rx Written Rx Dispensed Drug Quantity Days Supply Prescriber Name 07/21/2017 07/21/2017 morphine sulfate ir 30 mg tab 240 30 Pa Heard MD 07/21/2017 07/21/2017 oxycodone-acetaminophen 10-325 mg tablet 115 28 Pa Heard MD 06/20/2017 06/20/2017 morphine sulfate ir 30 mg tab 240 30 Pa Heard MD 06/20/2017 06/20/2017 oxycodone-acetaminophen 10-325 mg tab 115 28 Pa Heard MD 05/16/2017 05/16/2017 morphine sulfate ir 30 mg tab 240 30 Pa Heard MD 05/16/2017 05/16/2017 oxycodone-acetaminophen 10-325 mg tab 115 28 Pa Heard MD 04/16/2017 04/16/2017 morphine sulfate ir 30 mg tab 240 30 Pa Heard MD 04/16/2017 04/16/2017 oxycodone-acetaminophen 10-325 mg tab 115 28 Pa Heard MD 03/17/2017 03/17/2017 morphine sulfate ir 30 mg tab 240 30 Pa Heard MD 03/17/2017 03/17/2017 oxycodone-acetaminophen 10-325 mg tab 115 28 Pa Heard MD 02/14/2017 02/14/2017 morphine sulfate ir 30 mg tab 240 30 Pa Heard MD 02/14/2017 02/14/2017 oxycodone-acetaminophen 10-325 mg tab 115 28 Pa Heard MD 01/15/2017 01/15/2017 morphine sulfate ir 30 mg tab 240 30 Pa Heard MD 01/15/2017 01/15/2017 oxycodone-acetaminophen 10-325 mg tab 115 28 Pa Heard MD"
[2017-08-20] MEDS: morphine SO4 SUSTAINED ACTING 30 MG TABLET.SA PO PRN ×2 (14:17→22:11)
[2017-08-20] MEDS: ATORVASTATIN CA 80 MG TABLET (FP) PO SCH (22:10)
[2017-08-20] MEDS: INSULIN DETEMIR 100 UNITS/ML MDV SQ SCH (22:15)
[2017-08-20] MEDS: CHLORHEXIDINE GLUCONATE 4% CLEANSER FOR DECOLONIZATION TP SCH (22:19)
[2017-08-21] MEDS ORDERED: LIDOCAINE 5% TOPICAL PATCH TP ONE ×2 (01:38→02:30)
[2017-08-21] MEDS: DOCUSATE SODIUM 100 MG CAPSULE (FP) PO SCH ×2 (05:25→15:04)
[2017-08-21] MEDS: INSULIN SLIDING SCALE (NOVOLOG) 1 VIAL SQ SCH ×2 (06:21→11:55)
[2017-08-21] MEDS: morphine SO4 SUSTAINED ACTING 30 MG TABLET.SA PO PRN (07:13)
[2017-08-21] MEDS: PANTOPRAZOLE 20 MG TABLET (FP) PO SCH (09:53)
[2017-08-21] MEDS: ASPIRIN 325 MG TABLET PO SCH (09:53)
--- NOTE | 2017-08-21 13:04 | PN ---
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 Tolerating diet. o x 3. Insight seems impaired. Baseline? Unclear if changes after acute CVA. For sp/lang/cog assessment upon d/c for possible cognitive rehabilitation.
[2017-08-21] MEDS ORDERED: morphine SULFATE IMMEDIATE RELEASE 30 MG TAB PO PRN (13:37)
--- NOTE | 2017-08-21 13:59 | PN ---
"Progress Note (short form) - Note Progress Note: Subjective: The patient was seen and examined at the bedside, she has complaints of back pain She was seen evaluating around the unit with a steady gait Current Medications Generic Name Dose Route Start Last Admin Trade Name Freq PRN Reason Stop Dose Admin Acetaminophen 325 mg 08/16/17 18:16 08/17/17 09:18 Tylenol - PO 325 mg Q6H PRN Administration PAIN LEVEL 6-10 Aspirin 325 mg 08/17/17 10:00 08/17/17 09:18 Asa - PO 325 mg DAILY [facility] Administration Atorvastatin Calcium 80 mg 08/16/17 22:00 08/16/17 22:32 Lipitor - PO 80 mg HS [facility] Administration Chlorhexidine Gluconate 1 applic 08/16/17 22:00 08/16/17 22:29 Hibiclens For Decolonization - TP 1 applic HS [facility] Administration Docusate Sodium 100 mg 08/17/17 06:15 08/17/17 15:10 Colace - PO 100 mg TID [facility] Administration Insulin Aspart 1 vial 08/16/17 22:00 08/16/17 23:11 Novolog Vial Sliding Scale - SQ 8 units HS [facility] Administration Protocol Insulin Aspart 1 vial 08/17/17 07:00 08/17/17 16:37 Novolog Vial Sliding Scale - SQ 3 units TIDAC [facility] Administration Protocol Insulin Detemir 10 units 08/16/17 22:00 08/16/17 23:09 Levemir Vial SQ 10 units HS [facility] Administration Morphine Sulfate 60 mg 08/16/17 17:57 08/17/17 15:08 Msir - PO 60 mg Q6H PRN Administration PAIN LEVEL 6-10 Mupirocin 1 applic 08/16/17 22:00 08/17/17 09:19 Bactroban Ointment (For Decolonization) - NS 08/20/17 21:59 1 applic BID [facility] Administration Ondansetron HCl 8 mg 08/16/17 18:16 08/17/17 11:37 Zofran Odt - SL 8 mg Q8H PRN Administration NAUSEA Oxycodone HCl 5 mg 08/16/17 18:01 08/16/17 20:11 Roxicodone - PO 5 mg Q6H PRN Administration PAIN LEVEL 1-5 Pantoprazole Sodium 20 mg 08/17/17 10:00 08/17/17 09:18 Protonix - PO 20 mg DAILY [facility] Administration Objective: Vital Signs Period Temp Pulse Resp BP Sys/Rapp Pulse Ox Last 24 Hr 98.2 F-98.5 F 62-79 13-18 80-128/45-82 97-97 Physical Exam: General: NAD, A&Ox3 Lungs: CTA bilaterally Heart: RRR, S1S2 Abd: Soft, non-tender, non-distended. Normoactive bowel sounds Ext: Warm, well-perfused Neuro: LUE 3/5 muscle strength, decreased sensation to sharp and soft touch CBCD WBC 7.3 K/mm3 (4.0-10.0) 08/20/17 05:05 RBC 4.11 M/mm3 (3.60-5.2) 08/20/17 05:05 Hgb 11.9 GM/dL (10.7-15.3) 08/20/17 05:05 Hct 36.3 % (32.4-45.2) 08/20/17 05:05 MCV 88.3 fl (80-96) 08/20/17 05:05 MCHC 32.9 g/dl (32.0-36.0) 08/20/17 05:05 RDW 14.4 % (11.6-15.6) 08/20/17 05:05 Plt Count 543 K/MM3 (134-434) H 08/20/17 05:05 MPV 7.5 fl (7.5-11.1) 08/20/17 05:05 CMP Sodium 140 mmol/L (136-145) 08/20/17 05:05 Potassium 4.3 mmol/L (3.5-5.1) 08/20/17 05:05 Chloride 105 mmol/L (98-107) 08/20/17 05:05 Carbon Dioxide 22 mmol/L (21-32) 08/20/17 05:05 Anion Gap 13 (8-16) 08/20/17 05:05 BUN 14 mg/dL (7-18) 08/20/17 05:05 Creatinine 0.5 mg/dL (0.55-1.02) L 08/20/17 05:05 Creat Clearance w eGFR > 60 (>60) 08/20/17 05:05 Random Glucose 59 mg/dL (74-106) L 08/20/17 05:05 Calcium 8.9 mg/dL (8.5-10.1) 08/20/17 05:05 Total Bilirubin 0.3 mg/dL (0.2-1.0) D 08/20/17 05:05 AST 15 U/L (15-37) 08/20/17 05:05 ALT 12 U/L (12-78) 08/20/17 05:05 Alkaline Phosphatase 67 U/L (45-117) 08/20/17 05:05 Total Protein 6.4 g/dl (6.4-8.2) 08/20/17 05:05 Albumin 2.9 g/dl (3.4-5.0) L 08/20/17 05:05 CARDIAC ENZYMES Creatine Kinase 96 IU/L (26-192) 08/15/17 00:55 Troponin I < 0.02 ng/ml (0.00-0.05) 08/15/17 00:55 Assessment: This is a 47 year old female with PMHx of IDDM, DKA, gastroparesis, chronic back pain, migraines, who presented to the ED with left arm numbness and weakness. Plan: 1) Large right middle MCA infarct - Cryptogenic CVA - LUE weakness/numbness - Concern for extensive edema - Monitor mental status - ECHO reviewed - Discussed with Dr. Reynolds, can have TYRON as outpatient - Awaiting call back from Dr. Hobbs to discuss further recommendations regarding anticoagulation - Continue ASA - Continue statin - Anticoagulation deferred at this time in setting of large infarct with risk for hemorrhagic conversion - Appreciate hematology consult for hypercoaguable workup - Appreciate neuro consult 2) IDDM - ISS ACHS - Levemir 10u sq hs - BGM ACHS 3) Chronic back pain - Oxycodone prn - Morphine 60mg q8h prn - Please see health commerce below 4) F/E/N: - Diabetic diet - Monitor electrolytes 5) Prophylaxis: - Hold all chemical DVT prophylaxis per neuro - SCDs bilaterally 6) Dispo: - Requires continued inpatient care CODE STATUS: FULL CODE This report was requested by: Fern Hammer | Reference #: [id number] Patient Name: Ni Rosas Date: 1970 Address: [address] [place] [address] [place] [address] Sex: Female Rx Written Rx Dispensed Drug Quantity Days Supply Prescriber Name 07/21/2017 07/21/2017 morphine sulfate ir 30 mg tab 240 30 Pa Heard MD 07/21/2017 07/21/2017 oxycodone-acetaminophen 10-325 mg tablet 115 28 Pa Heard MD 06/20/2017 06/20/2017 morphine sulfate ir 30 mg tab 240 30 Pa Heard MD 06/20/2017 06/20/2017 oxycodone-acetaminophen 10-325 mg tab 115 28 Pa Heard MD 05/16/2017 05/16/2017 morphine sulfate ir 30 mg tab 240 30 Pa Heard MD 05/16/2017 05/16/2017 oxycodone-acetaminophen 10-325 mg tab 115 28 Pa Heard MD 04/16/2017 04/16/2017 morphine sulfate ir 30 mg tab 240 30 Pa Heard MD 04/16/2017 04/16/2017 oxycodone-acetaminophen 10-325 mg tab 115 28 Pa Heard MD 03/17/2017 03/17/2017 morphine sulfate ir 30 mg tab 240 30 Pa Heard MD 03/17/2017 03/17/2017 oxycodone-acetaminophen 10-325 mg tab 115 28 Pa Heard MD 02/14/2017 02/14/2017 morphine sulfate ir 30 mg tab 240 30 Pa Heard MD 02/14/2017 02/14/2017 oxycodone-acetaminophen 10-325 mg tab 115 28 Pa Heard MD 01/15/2017 01/15/2017 morphine sulfate ir 30 mg tab 240 30 Pa Heard MD 01/15/2017 01/15/2017 oxycodone-acetaminophen 10-325 mg tab 115 28 Pa Heard MD Visit type - Emergency Visit Emergency Visit: Yes ED Registration Date: 08/15/17 Care time: The patient presented to the Emergency Department on the above date and was hospitalized for further evaluation of their emergent condition. - New Patient This patient is new to me today: No - Critical Care Critical Care patient: No"
--- NOTE | 2017-08-21 14:36 | PN ---
Progress Note (short form) - Note Progress Note: 47 year old female history of DM, ? hld ,smoker, denies any cardiac history . She came with left sided hemiparesis. Patient has slurring of speech and facial drooling and left arm and leg weakness. Clinically she has been stable and her speech is improving, she is able to walk and arm still weak. carotid ultrasound was normal. mri of brain done on aug 16 was reviewed showed large stroke she is able to walk around, talk and left hand still weak. T Neurological Examination Alert oriented x 3, speech is slightly dysarthric and it is improving eomi, pupils is reactive, left sided facial paralysis Left upper extermity is grade 3 /5 and left lower strenght is grade 5/5 sensation is grossly normal exam is unchanged mri of brain done on aug 16 reviewed carotid ultrasound was unremarkable repeat ct showed there is edema Assessment large right mca stroke.clinically stable , most likely cryptogenic stroke Plan--continue statin and apisrin - continue current level of care - welcome center agent wishes to do TYRON outpatient - - continue PT, DVT PROPHYLAXIS, SPEECH Thanking you so much, she can follow up outpatient Mustapha Torres MD
[2017-08-21 14:39] VITALS: BP 116/68; PULSE 75; TEMP 98.5
--- NOTE | 2017-08-21 14:48 | DS ---
Physical Examination Vital Signs: Vital Signs Temperature 98.5 F 08/21/17 14:00 Pulse Rate 75 08/21/17 14:00 Respiratory Rate 20 08/21/17 10:00 Blood Pressure 116/68 08/21/17 14:00 O2 Sat by Pulse Oximetry (%) 98 08/21/17 10:00 Labs: CBC, BMP 08/20/17 05:05 08/20/17 05:05 Discharge Summary Reason For Visit: CVA Current Active Problems Cerebrovascular accident (CVA) (Acute) Morgan cardiac risk >20% in next 10 years (Acute) Hyperglycemia, unspecified (Acute) Opiate abuse, continuous (Acute) Condition: Improved - Instructions Diet, Activity, Other Instructions: Please return to the ED with new, persistent, or worsening symptoms. Please follow-up with providers as indicated. Insulin sliding scale before meals Blood sugar: less than 150: 0units 151-200: 2units 201-250: 4 units 251-300: 6 units 301-400: 8 units Greater than 401: 10 units and call your primary care provider Insulin sliding scale before bedtime Blood sugar: Less than 200: 0 units 201-250: 2 units 251-300: 3 units 301-350: 4 units 351-400: 5 units Greater than 401: 6 units and call your primary care provider Continue to give Levemir 10u sq twice a day Referrals: Mustapha Torres MD [Staff Physician] - (Please follow-up with neurology within 2 -3 days for further outpatient management of your stroke) Jaspal Reynolds MD [Staff Physician] - (Please follow-up with cardiology within 2-3 days to schedule an outpatient trans esophageal echocardiogram) Pa Heard MD [Primary Care Provider] - 1 Week Maggy Antonio MD [Staff Physician] - (Please follow-up with hematology within 1 week for the results of your hypercoaguable work-up) Disposition: VNS/HOME HEALTH CARE - Home Medications Comprehensive Discharge Medication List: Ambulatory Orders Oxycodone HCl/Acetaminophen [Percocet 10-325 mg Tablet] 1 - 2 tab PO QID Pantoprazole Sodium [Protonix -] 20 mg PO DAILY #30 tablet.ec 06/16/17 Morphine *Immediate Release* [Msir -] 2 tab PO QID 08/07/17 Acetaminophen [Tylenol .Regular Strength -] 325 mg PO Q6H PRN tablet 08/21/17 Aspirin [ASA -] 325 mg PO DAILY #30 tablet 08/21/17 Atorvastatin Ca [Lipitor] 80 mg PO HS #30 tablet 08/21/17 Docusate Sodium [Colace -] 100 mg PO TID #90 capsule 08/21/17 Insulin (Levemir) [Levemir Flexpen -] 10 units SQ BID #1 pen 08/21/17 Insulin Sliding Scale [Novolog Vial Sliding Scale -] See Protocol SQ HS #1 ml Insulin Sliding Scale [Novolog Vial Sliding Scale -] See Protocol SQ TIDAC #1 ml 08/21/17 Lidocaine Patch Removal [Lidoderm Patch Removal] 1 each MC DAILY@2200 #30 each 08/21/17 - Discharge Referral Referred to [facility] No
[2017-08-21] MEDS ORDERED: LIDOCAINE PATCH REMOVAL MC SCH (22:00)
[2017-08-22] MEDS ORDERED: morphine SULFATE IMMEDIATE RELEASE 30 MG TAB PO PRN (10:00)
== END 2017-08-21 16:34 | disposition home health service (06) | DRG 64 ==
LOC: FER 22:15 → FM/S 08-15 14:39 → JICU 08-15 20:29 → JERBED 08-18 11:29 → J4W 08-18 11:30
PROVIDERS: ADMIT Internal Medicine; ATTEND Registered Nurse
DX: I63.9 Cerebral infarction, unspecified (principal); G93.6 Cerebral edema; E87.1 Hypo-osmolality and hyponatremia; I69.354 Hemiplegia and hemiparesis following cerebral infarction affecting left non-dominant side; E10.43 Type 1 diabetes mellitus with diabetic autonomic (poly)neuropathy; K31.84 Gastroparesis; F17.200 Nicotine dependence, unspecified, uncomplicated; R29.703 NIHSS score 3; G43.809 Other migraine, not intractable, without status migrainosus; G89.4 Chronic pain syndrome; E10.65 Type 1 diabetes mellitus with hyperglycemia; E78.5 Hyperlipidemia, unspecified; M54.5 Low back pain; D47.3 Essential (hemorrhagic) thrombocythemia; F11.10 Opioid abuse, uncomplicated; Z91.89 Other specified personal risk factors, not elsewhere classified; Z79.4 Long term (current) use of insulin
CPT/HCPCS: 36415; 70450-TC; 70551-TC; 71045-TC-FY; 80048; 80053; 80061; 82550; 82947; 82962; 83090; 83735; 84100; 84484; 85025; 85027; 85610; 85613; 85732; 93005; 93306-TC; 93880-TC; 97116-GP; 97162-GP; 99285-25

== ENCOUNTER 2017-09-05 16:10 | Inpatient (IN) | payer OTHER ==
[2017-09-05] MEDS ORDERED: SODIUM CHLORIDE 2,000 ML IV STA ×2 (16:27→17:04)
[2017-09-05] MEDS ORDERED: PIPERACIL/TAZOB 3.375 GM 3.375 GM/50 ML PREMIX IVPB ONE (16:54)
[2017-09-05] MEDS ORDERED: VANCOMYCIN 1,000 MG in DEXTROSE 5%-WATER - 250 ML IVPB ONE (16:54)
[2017-09-05 17:11] LABS: HEMATOCRIT 33.7 % (32.4-45.2); HEMOGLOBIN 10.3 GM/dL (10.7-15.3); MCH 30.2 pg (25.7-33.7); MCHC 30.4 g/dl (32.0-36.0); MEAN CELL VOLUME 99.1 fl (80-96); MEAN PLT VOLUME 9.3 fl (7.5-11.1); PLATELET COUNT 424 K/MM3 (134-434); RDW 16.6 % (11.6-15.6)
[2017-09-05] MEDS ORDERED: PIPERACILLIN/TAZOB 3.375 GM 3.375 GM in DEXTROSE 5%-WATER - 50 ML IVPB ONE (17:15)
[2017-09-05 17:16] LABS: VENOUS PO2 41.3 mmHg (28-48)
[2017-09-05 17:19] LABS: VENOUS PC02 17.2 mmHg (38-52); VENOUS PH 7.14 (7.32-7.42)
[2017-09-05] MEDS ORDERED: PIPERACILLIN/TAZOB 3.375 GM 3.375 GM/50 ML BAG IVPB ONE (17:22)
[2017-09-05] MEDS ORDERED: VANCOMYCIN 1 GRAM (PRE-DOCKED) 1,000 MG/250 ML BAG IVPB ONE (17:22)
[2017-09-05 17:36] LABS: ALBUMIN 3.2 g/dl (3.4-5.0); ANION GAP 36 (8-16); BILIRUBIN,TOTAL 0.5 mg/dL (0.2-1.0); BLOOD UREA NITROGEN 62 mg/dL (7-18); CALCIUM 8.3 mg/dL (8.5-10.1); CHLORIDE 90 mmol/L (98-107); CO2 6 mmol/L (21-32); CREATININE 2.6 mg/dL (0.55-1.02); MAGNESIUM 3.2 mg/dL (1.8-2.4); PHOSPHOROUS 8.3 mg/dL (2.5-4.9); POTASSIUM 4.2 mmol/L (3.5-5.1); SGOT/AST 16 U/L (15-37); SGPT/ALT 29 U/L (12-78); SODIUM 132 mmol/L (136-145); TOT PROT 5.9 g/dl (6.4-8.2)
[2017-09-05 17:39] LABS: ALK PHOS 115 U/L (45-117)
[2017-09-05 17:42] LABS: GLUCOSE,RANDOM 1273 mg/dL (74-106)
[2017-09-05] MEDS ORDERED: INSULIN REGULAR HUMAN 100 UNITS/ML *VIAL IVPUSH ONE (17:47)
[2017-09-05 17:50] LABS: URINE APPEARANCE CLEAR; URINE BILIRUBIN NEGATIVE (NEGATIVE); URINE BLOOD NEGATIVE (NEGATIVE); URINE COLOR STRAW; URINE GLUCOSE (UA) 3+ (NEGATIVE); URINE KETONE 2+ (NEGATIVE); URINE LEUK ESTERASE NEGATIVE (NEGATIVE); URINE NITRITE NEGATIVE (NEGATIVE); URINE PROTEIN NEGATIVE (NEGATIVE); URINE UROBILINOGEN NEGATIVE mg/dL (0.2-1.0)
[2017-09-05 17:51] LABS: ACETONE SERUM POSITIVE LARGE 3+ (NEGATIVE)
[2017-09-05] MEDS ORDERED: INSULIN REGULAR HUMAN 100 UNITS/ML *VIAL ONE (17:52)
[2017-09-05 17:58] LABS: COCAINE, UR NEGATIVE ng/ml (CUTOFF=300); METHADONE, UR NEGATIVE ng/ml (CUTOFF=300); OPIATES, URI POSITIVE ng/ml (CUTOFF=300); PHENCYCLIDINE,URINE NEGATIVE ng/ml (CUTOFF=25); URINE AMPHETAMINES NEGATIVE ng/ml (CUTOFF=500); URINE BARBITURATES NEGATIVE ng/ml (CUTOFF=200); URINE BENZODIAZEPINES NEGATIVE ng/ml (CUTOFF=200)
[2017-09-05] MEDS ORDERED: SODIUM CHLORIDE 1,000 ML IV SCH (18:00)
[2017-09-05] MEDS: INSULIN REGULAR 100 UNITS in SODIUM CHLORIDE 99 ML IVPB SCH (18:04)
--- NOTE | 2017-09-05 18:15 | PDOC ---
History of Present Illness - General History Source: EMS, Family Exam Limitations: Clinical Condition <Gordo Way - Last Filed: 09/05/17 18:07> - General History Source: EMS, Family Exam Limitations: Clinical Condition - History of Present Illness Initial Comments: 09/05/17 18:37 The patient is a 47 year old female with a significant PMH of type 1 diabetes ( with frequent DKA episodes), CVA, chronic back pain, and gastroparesis who presents to the emergency department for via EMS for evaluation of a high blood sugar (as per EMS) and hypotension. As per EMS, the patients neighbor went to the patients house to check on her barking dog when she found the patient on the ground in with Kussmaul breathing, prompting her to call EMS. History is limited from the patient due to her clinical condition. Allergies: NKA Past surgical history: Cholecystectomy. Social history: Current everyday smoker. PCP: None reported. 09/05/17 18:47 Family contact (Art, & Sylvia, neighbor): [phone] <Gordo Hernandez - Last Filed: 09/05/17 18:52> - General Chief Complaint: Blood Pressure Problem Stated Complaint: DIFFICULTY BREATHING Time Seen by Provider: 09/05/17 16:22 Past History - Past Medical History COPD: No Diabetes: Yes (TYPE I, DKA) GI Disorders: Yes (GASTROPARESIS) - Surgical History Cholecystectomy: Yes (AGE 19) - Immunization History Td Vaccination: Yes Immunization Up to Date: Yes - Suicide/Smoking/Psychosocial Hx Smoking Status: Yes Smoking History: Current every day smoker Years of Tobacco Use: 15 Have you smoked in the past 12 months: Yes Number of Cigarettes Smoked Daily: 20 Information on smoking cessation initiated: No 'Breaking Loose' booklet given: 08/15/17 Hx Alcohol Use: No Drug/Substance Use Hx: No Substance Use Type: Marijuana Hx Substance Use Treatment: No <Gordo Way - Last Filed: 09/05/17 18:07> <Gordo Hernandez - Last Filed: 09/05/17 18:52> - Past Medical History Allergies/Adverse Reactions: Allergies Allergy/AdvReac Type Severity Reaction Status Date / Time No Known Allergies Allergy Verified 08/15/17 12:12 Home Medications: Ambulatory Orders Unobtainable [Unobtainable] 09/05/17 Review of Systems - Review of Systems Able to Perform ROS?: No <Gordo Hernandez - Last Filed: 09/05/17 18:52> *Physical Exam - Vital Signs Last Vital Signs Temp Pulse Resp BP Pulse Ox 91.8 F L 89 26 H 82/42 100 09/05/17 17:33 09/05/17 16:49 09/05/17 16:49 09/05/17 16:49 09/05/17 16:[address] <[address] - Last Filed: 09/05/17 18:07> - Vital Signs Last Vital Signs Temp Pulse Resp BP Pulse Ox 93.5 F L 89 22 84/49 100 09/05/17 18:08 09/05/17 18:08 09/05/17 18:08 09/05/17 18:08 09/05/17 16:49 - Physical Exam Comments: 09/05/17 18:52 GENERAL: (+) Ill appearing. (+) Nonverbal. HEAD: No signs of trauma EYES: PERRLA, EOMI, sclera anicteric, conjunctiva clear ENT: (+) Dry mucosa. Auricles normal inspection, hearing grossly normal, nares patent. NECK: Normal ROM, supple, no lymphadenopathy, JVD, or masses LUNGS: (+) Kussmaul breathing. No wheezes and no crackles HEART: (+) Tachypneic. Regular rhythm, normal S1 and S2, no murmurs, rubs or gallops ABDOMEN: (+) Insulin pump placed in the right lower abdomen. Soft, nontender, normoactive bowel sounds. No guarding, no rebound. No masses EXTREMITIES: Normal range of motion, no edema. No clubbing or cyanosis. No cords, erythema, or tenderness NEUROLOGICAL: Cranial nerves II through XII grossly intact. Normal speech, normal gait SKIN: Warm, Dry, normal turgor, no rashes or lesions noted. <Gordo Hernandez - Last Filed: 09/05/17 18:52> Heart Score/ECG Review #1 ECG reviewed & interpreted by me at: 16:25 09/05/17 18:08 NSR 92, QTC 516 msec, no std/rufina, nonspecific ST abnormality <Gordo Way - Last Filed: 09/05/17 18:07> ED Treatment Course - LABORATORY CBC & Chemistry Diagram: 09/05/17 16:35 09/05/17 16:35 - ADDITIONAL ORDERS Additional order review: Laboratory Results 09/05/17 09/05/17 09/05/17 17:25 17:25 16:35 VBG pH POC VBG pCO2 POC VBG pO2 Mixed VBG HCO3 Sodium Potassium Chloride Carbon Dioxide Anion Gap BUN Creatinine Creat Clearance w eGFR Random Glucose Lactic Acid 6.6 H* Calcium Phosphorus Magnesium Total Bilirubin AST ALT Alkaline Phosphatase Creatine Kinase Troponin I Total Protein Albumin Serum , Qual Urine Color Straw Urine Appearance Clear Urine pH 5.0 Ur Specific [place] 1.016 Urine Protein Negative Urine Glucose (UA) 3+ H Urine Ketones 2+ H Urine Blood Negative Urine Nitrite Negative Urine Bilirubin Negative Urine Urobilinogen Negative Ur Leukocyte Esterase Negative Opiates Screen Positive Methadone Screen Negative Barbiturate Screen Negative Phencyclidine Screen Negative Ur Amphetamines Screen Negative MDMA (Ecstasy) Screen Negative Benzodiazepines Screen Negative Cocaine Screen Negative U Marijuana (THC) Screen Negative Acetone, Qual 09/05/17 09/05/17 09/05/17 16:35 16:35 16:35 VBG pH 7.14 L* D POC VBG pCO2 17.2 L* POC VBG pO2 41.3 D Mixed VBG HCO3 5.7 L* Sodium 132 L Potassium 4.2 Chloride 90 L Carbon Dioxide 6 L Anion Gap 36 H BUN 62 H Creatinine 2.6 H Creat Clearance w eGFR 19.65 Random Glucose 1273 H* Lactic Acid Calcium 8.3 L Phosphorus 8.3 H Magnesium 3.2 H Total Bilirubin 0.5 D AST 16 ALT 29 Alkaline Phosphatase 115 Creatine Kinase 169 Troponin I 0.02 Total Protein 5.9 L Albumin 3.2 L Serum , Qual Negative Urine Color Urine Appearance Urine pH Ur Specific [place] Urine Protein Urine Glucose (UA) Urine Ketones Urine Blood Urine Nitrite Urine Bilirubin Urine Urobilinogen Ur Leukocyte Esterase Opiates Screen Methadone Screen Barbiturate Screen Phencyclidine Screen Ur Amphetamines Screen MDMA (Ecstasy) Screen Benzodiazepines Screen Cocaine Screen U Marijuana (THC) Screen Acetone, Qual Positive large 3+ H 09/05/17 16:35 RBC 3.40 L MCV 99.1 H D MCHC 30.4 L RDW 16.6 H D MPV 9.3 D Neutrophils % No Result Required. Lymphocytes % No Result Required. - RADIOLOGY Radiology Studies Ordered: Category Date Time Status CHEST X-RAY PORTABLE* [RAD] Stat Radiology 09/05/17 16:27 Taken - Medications Given in the ED: ED Medications Discontinued Medications Generic Name Dose Route Start Last Admin Trade Name Donavan PRN Reason Stop Dose Admin Vancomycin HCl 1,000 mg/ 250 mls @ 250 mls/hr 09/05/17 16:54 09/05/17 17:17 Dextrose IVPB 09/05/17 17:53 250 mls/hr ONCE ONE Administration Protocol Insulin Human Regular 5 units 09/05/17 17:47 09/05/17 18:03 Novolin R Vial *For Ivpush Or Iv Drip Only* IVPUSH 09/05/17 17:48 5 units ONCE ONE Administration <Gordo Way - Last Filed: 09/05/17 18:07> - LABORATORY CBC & Chemistry Diagram: 09/05/17 16:35 09/05/17 16:35 - ADDITIONAL ORDERS Additional order review: Laboratory Results 09/05/17 09/05/17 09/05/17 17:25 17:25 16:35 VBG pH POC VBG pCO2 POC VBG pO2 Mixed VBG HCO3 Sodium Potassium Chloride Carbon Dioxide Anion Gap BUN Creatinine Creat Clearance w eGFR Random Glucose Lactic Acid 6.6 H* Calcium Phosphorus Magnesium Total Bilirubin AST ALT Alkaline Phosphatase Creatine Kinase Creatine Kinase Index CK-MB (CK-2) Troponin I Total Protein Albumin Serum , Qual Urine Color Straw Urine Appearance Clear Urine pH 5.0 Ur Specific [place] 1.016 Urine Protein Negative Urine Glucose (UA) 3+ H Urine Ketones 2+ H Urine Blood Negative Urine Nitrite Negative Urine Bilirubin Negative Urine Urobilinogen Negative Ur Leukocyte Esterase Negative Opiates Screen Positive Methadone Screen Negative Barbiturate Screen Negative Phencyclidine Screen Negative Ur Amphetamines Screen Negative MDMA (Ecstasy) Screen Negative Benzodiazepines Screen Negative Cocaine Screen Negative U Marijuana (THC) Screen Negative Acetone, Qual 09/05/17 09/05/17 09/05/17 16:35 16:35 16:35 VBG pH 7.14 L* D POC VBG pCO2 17.2 L* POC VBG pO2 41.3 D Mixed VBG HCO3 5.7 L* Sodium 132 L Potassium 4.2 Chloride 90 L Carbon Dioxide 6 L Anion Gap 36 H BUN 62 H Creatinine 2.6 H Creat Clearance w eGFR 19.65 Random Glucose 1273 H* Lactic Acid Calcium 8.3 L Phosphorus 8.3 H Magnesium 3.2 H Total Bilirubin 0.5 D AST 16 ALT 29 Alkaline Phosphatase 115 Creatine Kinase 169 Creatine Kinase Index 2.3 CK-MB (CK-2) 4.036 H Troponin I 0.02 Total Protein 5.9 L Albumin 3.2 L Serum , Qual Negative Urine Color Urine Appearance Urine pH Ur Specific [place] Urine Protein Urine Glucose (UA) Urine Ketones Urine Blood Urine Nitrite Urine Bilirubin Urine Urobilinogen Ur Leukocyte Esterase Opiates Screen Methadone Screen Barbiturate Screen Phencyclidine Screen Ur Amphetamines Screen MDMA (Ecstasy) Screen Benzodiazepines Screen Cocaine Screen U Marijuana (THC) Screen Acetone, Qual Positive large 3+ H 09/05/17 16:35 RBC 3.40 L MCV 99.1 H D MCHC 30.4 L RDW 16.6 H D MPV 9.3 D Neutrophils % No Result Required. Lymphocytes % No Result Required. - Medications Given in the ED: ED Medications Discontinued Medications Generic Name Dose Route Start Last Admin Trade Name Freq PRN Reason Stop Dose Admin Sodium Chloride 2,000 mls @ 1,000 mls/hr 09/05/17 16:27 09/05/17 16:37 Normal Saline - IV 09/05/17 18:26 1,000 mls/hr ASDIR STA Administration Vancomycin HCl 1,000 mg/ 250 mls @ 250 mls/hr 09/05/17 16:54 09/05/17 17:17 Dextrose IVPB 09/05/17 17:53 250 mls/hr ONCE ONE Administration Protocol Piperacillin Sod/Tazobactam 50 mls @ 100 mls/hr 09/05/17 17:15 09/05/17 18:21 Sod 3.375 gm/ Dextrose IVPB 09/05/17 17:44 100 mls/hr ONCE ONE Administration Insulin Human Regular 5 units 09/05/17 17:47 09/05/17 18:03 Novolin R Vial *For Ivpush Or Iv Drip Only* IVPUSH 09/05/17 17:48 5 units ONCE ONE Administration <Gordo Hernandez - Last Filed: 09/05/17 18:52> Medical Decision Making - Critical Care Time Total Critical Care Time (minutes): 60 Critical Care Statement: The care of this patient involved high complexity decision making to prevent further life threatening deterioration of the patient 's condition and/or to evaluate & treat vital organ system(s) failure or risk of failure. - Medical Decision Making 09/05/17 18:08 A portion of this note was documented by scribe services under my direction. I have reviewed the details of the note, within reason, and agree with the documentation with the following case summary and management plan written by me. Patient treated in the ED. Patient arrives by ambulance to the emergency department. Nursing notes are reviewed and incorporated into the medical decision-making. Vital signs reviewed. Peripheral IV access obtained by the nurse, laboratory studies are drawn and sent, reviewed and interpreted by myself. Vital Signs Temp Pulse Resp BP Pulse Ox 93.5 F L 89 22 84/49 100 09/05/17 18:08 09/05/17 18:08 09/05/17 18:08 03 18:08 09/05/17 16:49 47-year-old female patient with type 1 diabetes, on insulin pump, stroke brought in by EMS for found down on the ground. The patient neighbor had noted that the dog was barking subjective on the patient. Found down on the ground with Kussmaul breathing. History was from EMS and limited from the patient. Patient's glucose was over arrange the patient brought to the ED. Patient was ill-appearing assault by me immediately. Blood work, cultures and labs were drawn and empiric antibiotics were ordered. EKG is obtained and demonstrated sinus rhythm with a prolonged QT. 4 L of IV fluids of normal saline were given for diabetic ketoacidosis. Blood work demonstrated only white count, elevated anion gap and glucose. Insulin bolus and drip was initiated. We'll obtain a head CT to rule out head injury given that she was found on the ground. Patient's body temperature was 93. Blair hugger was initiated. Pt's mother was contacted, Sylvia who is aware. Case discussed with client business manager Dr. Otero who accepts patient. Case discussed with Dr. Spivey who accepts the patient to [facility]. Case discussed in detail with admitting physician including history, physical exam and ancillary studies. Admitting physician has assumed care for the patient, will follow all pending diagnostics and will complete the evaluation and treatment. <Gordo Way - Last Filed: 03/09/18 18:07> *DC/Admit/Observation/Transfer - Discharge Dispostion Admit: Yes <Gordo Way - Last Filed: 09/05/17 18:07> - Attestations Scribe Attestion: 09/05/17 18:37 Documentation prepared by Gordo Hernandez, acting as administrative medical director for Gordo Way MD. <Gordo Hernandez - Last Filed: 09/05/17 18:52> Diagnosis at time of Disposition: Renal failure (ARF), acute on chronic Qualifiers: Acute renal failure type: unspecified Chronic kidney disease stage: unspecified stage Qualified Code(s): N17.9 - Acute kidney failure, unspecified Diabetic keto-acidosis Qualifiers: Diabetes mellitus type: due to underlying condition Diabetes mellitus complication detail: with coma Qualified Code(s): E08.11 - Diabetes mellitus due to underlying condition with ketoacidosis with coma - Discharge Dispostion Condition at time of disposition: Guarded
[2017-09-05 18:39] LABS: PLATELET ESTIMATE ADEQUATE
--- NOTE | 2017-09-05 19:22 | PDOC ---
NIH Stroke Scale - Last Known Well Date/Time & Onset Date Last Known Well: 09/04/17 - Initial Evaluation Level of consciousness: Coma Ask patient the month and their age: Both incorrect Ask patient to open & close eyes; make fist and let go: Both incorrect Best gaze (horizontal eye movement): Normal Visual field testing: No visual field loss Facial paresis (Show teeth/raise eyebrows/close eyes tight): Normal symmetrical movement Motor Function: Left Arm: Normal Motor Function: Right Arm: Normal (extends arm 90 (or 45) degrees for 10 seconds without drift Motor Function: Left Leg: Normal (extends leg 30 degrees for 5 seconds without drift) Motor Function: Right Leg: Normal (extends leg 30 degrees for 5 seconds without drift) Limb Ataxia: No ataxia Sensory(Use pinprick test arms,legs,trunk,face/side to side): Normal Best language (Describe picture, name items, read sentences): Mute Dysarthria (read several words): Near unintelligible or unable to speak Extinction and Inattention: Profound jonh-inattention or extinction to more than one modality - Total Score NIH Stroke Scale Score: 14
[2017-09-05 20:17] VITALS: BMI 23.2
--- NOTE | 2017-09-05 20:39 | CONSULT ---
Consult Consult Specialty:: Critical Care Reason for Consultation:: DKA - History of Present Illness Chief Complaint: AMS, found down History of Present Illness: This is a 47 yo woman with active tobacco (35 pack year), HLD, poorly controlled IDDM c/b recent CVA (left sided hemiparesis), gastroparesis who presented after being found down by neighbors (unknow down time) found to have DKA (glucose 1250, AG 39, +ketones). In ED NIH stroke scale 14. Head CT showed evolving right MCA infarct. Labs also notable for leukocytosis (21) and she was given empiric zosyn and vanco. CXR clear. U/A w/o nitrates or leukesterase. Insulin drip and IVF started. Corrected sodium 150. Patient transferred to ICU for continued care. 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: CVA (right MCA), Migraine Gastrointestinal: Yes: Other (Gastroparesis) ...LMP: 04/14/13 Musculoskeletal: Yes: Chronic low back pain Endocrine: Yes: Diabetes Mellitus Additional Medical History: dka in the past - Past Surgical History Past Surgical History: Yes: Cholecystectomy - Alcohol/Substance Use Hx Alcohol Use: No History of Substance Use: reports: None - Smoking History Smoking history: Current every day smoker Have you smoked in the past 12 months: Yes Aproximately how many cigarettes per day: 20 - Social History ADL: Independent History of Recent Travel: No Home Medications - Allergies Allergies/Adverse Reactions: Allergies Allergy/AdvReac Type Severity Reaction Status Date / Time No Known Allergies Allergy Verified 08/15/17 12:12 - Home Medications Home Medications: Ambulatory Orders Unobtainable [Unobtainable] 09/05/17 Family Disease History - Family Disease History Family Disease History: Heart Disease: Father (cad) Review of Systems Unable to obtain ROS, reason: AMS Physical Exam Vital Signs: Vital Signs Temperature 95.7 F L 09/05/17 20:08 Pulse Rate 96 H 09/05/17 20:08 Respiratory Rate 22 09/05/17 20:08 Blood Pressure 103/51 09/05/17 20:08 O2 Sat by Pulse Oximetry (%) 100 09/05/17 16:49 Active Medications Aspirin (Ecotrin -) 325 mg PO DAILY [facility] Atorvastatin Calcium (Lipitor -) 80 mg PO HS [facility] Heparin Sodium (Porcine) (Heparin -) 5,000 unit SQ TID [facility] Insulin Human Regular 100 (units/ Sodium Chloride) 100 mls @ 4.98 mls/hr IVPB TITR [facility]; 0.1 UNITS/KG/HR PRN Reason: Protocol Last Admin: 09/05/17 18:04 Dose: 0.1 units/kg/hr, 4.98 mls/hr Potassium Chloride 40 meq/ (Sodium Chloride) 1,020 mls @ 200 mls/hr IVPB Q5H [facility] Constitutional: Yes: No Distress, Calm Eyes: Yes: EOM Intact Cardiovascular: Yes: Regular Rate and Rhythm, S1, S2 Respiratory: Yes: CTA Bilaterally, Kussmaul Gastrointestinal: Yes: Normal Bowel Sounds, Soft Edema: No Neurological: Yes: Confusion Labs: CBC, BMP 09/05/17 16:35 09/05/17 16:35 Urine Test Results Urine Color Straw 09/05/17 17:25 Urine Appearance Clear 09/05/17 17:25 Urine pH 5.0 (5.0-8.0) 09/05/17 17:25 Ur Specific [place] 1.016 (1.001-1.035) 09/05/17 17:25 Urine Protein Negative (NEGATIVE) 09/05/17 17:25 Urine Glucose (UA) 3+ (NEGATIVE) H 09/05/17 17:25 Urine Ketones 2+ (NEGATIVE) H 09/05/17 17:25 Urine Blood Negative (NEGATIVE) 09/05/17 17:25 Urine Nitrite Negative (NEGATIVE) 09/05/17 17:25 Urine Bilirubin Negative (NEGATIVE) 09/05/17 17:25 Ur Leukocyte Esterase Negative (NEGATIVE) 09/05/17 17:25 Troponin, BNP 09/05/17 16:35 Troponin I 0.02 Hepatic Panel Total Bilirubin 0.5 mg/dL (0.2-1.0) D 09/05/17 16:35 AST 16 U/L (15-37) 09/05/17 16:35 ALT 29 U/L (12-78) 09/05/17 16:35 Alkaline Phosphatase 115 U/L (45-117) 09/05/17 16:35 Albumin 3.2 g/dl (3.4-5.0) L 09/05/17 16:35 Imaging - Results Chest X-ray: Report Reviewed, Image Reviewed (Clear) Cat Scan: Report Reviewed, Image Reviewed Problem List - Problems (1) Diabetic keto-acidosis Code(s): E13.10 - OTH DIABETES MELLITUS WITH KETOACIDOSIS WITHOUT COMA Qualifiers: Diabetes mellitus type: due to underlying condition Diabetes mellitus complication detail: with coma Qualified Code(s): E08.11 - Diabetes mellitus due to underlying condition with ketoacidosis with coma (2) Renal failure (ARF), acute on chronic Code(s): N17.9 - ACUTE KIDNEY FAILURE, UNSPECIFIED; N18.9 - CHRONIC KIDNEY DISEASE, UNSPECIFIED Qualifiers: Acute renal failure type: unspecified Chronic kidney disease stage: unspecified stage Qualified Code(s): N17.9 - Acute kidney failure, unspecified ; N18.9 - Chronic kidney disease, unspecified; N18.9 - Chronic kidney disease, unspecified (3) Gastroparesis Code(s): K31.84 - GASTROPARESIS (4) Chronic pain Code(s): G89.29 - OTHER CHRONIC PAIN Qualifiers: Chronic pain type: chronic pain syndrome Qualified Code(s): G89.4 - Chronic pain syndrome Assessment/Plan a/p: 47 yo woman IDDM c/b recent CVA, gastroparesis who was found down in the setting of DKA. AMS likely 2/2 DKA precipitating cause is unclear, does note appear infected at this time question possible seizure given recent CVA. GIANCARLO likely from dehydration -Leukocytosis likely reactive, will send procalcitonin and hold off on ABX at this time given clear u/a and afebrile -consider neuro consult and EEG if mental status change remains altered -O2 for sat >88% -nicoderm patch -Insulin drip 0.1units/kg/hr --if BG doesnt fall by 50-70 mg/dl in first hr double insulin infusion until BG drops by 50-70 mg/dl --goal B-200mg/dl until AG closes --if BG fall <70 mg/dl hold insulin x15m and bolus D50 IVP --restart insulin at half prior dose and notify prodiver -IV fluids 200ml/hr --corrected sodium >140 use d5 1/2NS --corrected sodium <140 use NS --add D5 once BG reaches 250 mg/dl -potassium replacement --K> 5.5mEq/l no replacement --K 4-5 mEq/l add KCl 20 mEq to each liter of IVF --K 3.5-3.9 mEq/l add KCL 20-40 mEq to each liter of IVF --K 3.1-3.4 mEq/l add KCL 40-60 mEq to each liter of IVF --K <3 mEq/l add KCL 40-80 mEq to each liter of IVF (call provider) -BMP q4hrs until AG closes -Once AG closed and ketosis resolved and able to tolerate PO diet transition to insulin sq -UFH sq prophylaxis Boerem ACNP Pulm/CCM
[2017-09-05] MEDS ORDERED: ACETAMINOPHEN 325 MG TABLET (FP) PO PRN (21:11)
[2017-09-05] MEDS ORDERED: ALBUTEROL SO4 0.083% IH SOL 2.5 MG/3 ML VIAL.NEB. NEB PRN (21:32)
--- NOTE | 2017-09-05 22:04 | HP ---
CHIEF COMPLAINT: DKA HISTORY OF PRESENT ILLNESS: 47 yo non-compliant F with Pmhx of IDDM (frequent DKA admissions), recent CVA (admitted last month), gastroparesis, presented after being found by neighbors (unknown how long she was down), found to be in DKA. Glucose 1273 and Anion gap of 36. Patient admits to taking drugs but unknown which drug at this time. In ED NIH stroke scale 14. Patient was discharged 08/21 for CVA. Stroke workup during last admission unremarkable (echo , doppler, hypercoaguable w/u). ER course was notable for: (1) Glucose 1273, AG 36, WBC 21, LA 6.6, Hypothermic with temp 91.8, corrected sodium 151 (2) Insulin drip, IVF NS Bolus x 4 (3)Vanc/ zosyn Recent Travel: n/a PAST MEDICAL HISTORY: Per HPI PAST SURGICAL HISTORY: cholecystectomy Social History: Smokin pack per year Alcohol: n/a Drugs: admits to drug, unknown, patient unable to answer what type Family History: Allergies No Known Allergies Allergy (Verified 08/15/17 12:12) HOME MEDICATIONS: Home Medications Medication Instructions Recorded Unobtainable [Unobtainable] 09/05/17 REVIEW OF SYSTEMS Unable to obtain PHYSICAL EXAMINATION Vital Signs - 24 hr 09/05/17 09/05/17 09/05/17 16:15 16:22 16:36 Temperature 93.6 F L Pulse Rate 93 H Pulse Rate [ Apical] Respiratory 26 H Rate Blood Pressure 88/61 Blood Pressure [Left Arm] O2 Sat by Pulse 100 100 Oximetry (%) 09/05/17 09/05/17 09/05/17 16:49 17:33 18:08 Temperature 91.8 F L 93.5 F L Pulse Rate Pulse Rate [ 89 89 Apical] Respiratory 26 H 22 Rate Blood Pressure Blood Pressure 82/42 84/49 [Left Arm] O2 Sat by Pulse 100 Oximetry (%) 09/05/17 09/05/17 09/05/17 20:00 20:08 20:27 Temperature 97.9 F 95.7 F L Pulse Rate 99 H 96 H Pulse Rate [ Apical] Respiratory 18 22 22 Rate Blood Pressure 103/58 103/51 Blood Pressure [Left Arm] O2 Sat by Pulse 92 L Oximetry (%) GENERAL: awake, in mild distress, lethargic, unable to answer questions, HEAD: Normal with no signs of trauma. EYES: Pupils equal, round and reactive to light EARS, NOSE, THROATd: dry mucous membranes LUNGS: scattered rhonchi, expiratory wheezing HEART: tachy, no murmurs appreciated, 2 plus pulses ABDOMEN: soft, no grimacing on palpation LOWER EXTREMITIES: No peripheral edema. NEUROLOGICAL: unable to obtain due to mental status. no facial droops appreciated Laboratory Results - last 24 hr 09/05/17 09/05/17 09/05/17 16:35 16:35 16:35 WBC 21.0 H D RBC 3.40 L Hgb 10.3 L D Hct 33.7 MCV 99.1 H D MCH 30.2 MCHC 30.4 L RDW 16.6 H D Plt Count 424 D MPV 9.3 D Neutrophils % No Result Required. Neutrophils % (Manual) 80.0 D Band Neutrophils % 4.0 Lymphocytes % No Result Required. Lymphocytes % (Manual) 11.0 D Monocytes % (Manual) 5 Eosinophils % (Manual) 0.0 D Basophils % (Manual) 0.0 Platelet Estimate Adequate VBG pH 7.14 L* D POC VBG pCO2 17.2 L* POC VBG pO2 41.3 D Mixed VBG HCO3 5.7 L* Sodium 132 L Potassium 4.2 Chloride 90 L Carbon Dioxide 6 L Anion Gap 36 H BUN 62 H Creatinine 2.6 H Creat Clearance w eGFR 19.65 Random Glucose 1273 H* Lactic Acid Calcium 8.3 L Phosphorus 8.3 H Magnesium 3.2 H Total Bilirubin 0.5 D AST 16 ALT 29 Alkaline Phosphatase 115 Creatine Kinase 169 Creatine Kinase Index 2.3 CK-MB (CK-2) 4.036 H Troponin I 0.02 Total Protein 5.9 L Albumin 3.2 L Serum , Qual Urine Color Urine Appearance Urine pH Ur Specific [place] Urine Protein Urine Glucose (UA) Urine Ketones Urine Blood Urine Nitrite Urine Bilirubin Urine Urobilinogen Ur Leukocyte Esterase Opiates Screen Methadone Screen Barbiturate Screen Phencyclidine Screen Ur Amphetamines Screen MDMA (Ecstasy) Screen Benzodiazepines Screen Cocaine Screen U Marijuana (THC) Screen Acetone, Qual Positive large 3+ H 09/05/17 09/05/17 09/05/17 16:35 16:35 17:25 WBC RBC Hgb Hct MCV MCH MCHC RDW Plt Count MPV Neutrophils % Neutrophils % (Manual) Band Neutrophils % Lymphocytes % Lymphocytes % (Manual) Monocytes % (Manual) Eosinophils % (Manual) Basophils % (Manual) Platelet Estimate VBG pH POC VBG pCO2 POC VBG pO2 Mixed VBG HCO3 Sodium Potassium Chloride Carbon Dioxide Anion Gap BUN Creatinine Creat Clearance w eGFR Random Glucose Lactic Acid 6.6 H* Calcium Phosphorus Magnesium Total Bilirubin AST ALT Alkaline Phosphatase Creatine Kinase Creatine Kinase Index CK-MB (CK-2) Troponin I Total Protein Albumin Serum , Qual Negative Urine Color Straw Urine Appearance Clear Urine pH 5.0 Ur Specific [place] 1.016 Urine Protein Negative Urine Glucose (UA) 3+ H Urine Ketones 2+ H Urine Blood Negative Urine Nitrite Negative Urine Bilirubin Negative Urine Urobilinogen Negative Ur Leukocyte Esterase Negative Opiates Screen Methadone Screen Barbiturate Screen Phencyclidine Screen Ur Amphetamines Screen MDMA (Ecstasy) Screen Benzodiazepines Screen Cocaine Screen U Marijuana (THC) Screen Acetone, Qual 09/05/17 17:25 WBC RBC Hgb Hct MCV MCH MCHC RDW Plt Count MPV Neutrophils % Neutrophils % (Manual) Band Neutrophils % Lymphocytes % Lymphocytes % (Manual) Monocytes % (Manual) Eosinophils % (Manual) Basophils % (Manual) Platelet Estimate VBG pH POC VBG pCO2 POC VBG pO2 Mixed VBG HCO3 Sodium Potassium Chloride Carbon Dioxide Anion Gap BUN Creatinine Creat Clearance w eGFR Random Glucose Lactic Acid Calcium Phosphorus Magnesium Total Bilirubin AST ALT Alkaline Phosphatase Creatine Kinase Creatine Kinase Index CK-MB (CK-2) Troponin I Total Protein Albumin Serum , Qual Urine Color Urine Appearance Urine pH Ur Specific [place] Urine Protein Urine Glucose (UA) Urine Ketones Urine Blood Urine Nitrite Urine Bilirubin Urine Urobilinogen Ur Leukocyte Esterase Opiates Screen Positive Methadone Screen Negative Barbiturate Screen Negative Phencyclidine Screen Negative Ur Amphetamines Screen Negative MDMA (Ecstasy) Screen Negative Benzodiazepines Screen Negative Cocaine Screen Negative U Marijuana (THC) Screen Negative Acetone, Qual ASSESSMENT/PLAN: This is a 47 year old female with PMHx of IDDM, DKA, gastroparesis, chronic back pain, migraines, who was found to be in DKA. #DKA -Anion Gap 36 -Glucose 1273 -5 unit insulin bolus in ED per Pt. Weight -NS Bolus x 4 in ED -Insulin drip 0.1units/kg/hr -If BG doesnt fall by 50-70 mg/dl in first hr double insulin infusion until BG drops by 50-70 mg/dl -K 4-5 mEq/l add KCl 20 mEq to each liter of IVF -Follow Mag, and Phosphorus -BMP Q4h until serum Glucose < 250mg/dl, then D51/2NS with KCL 20meq. -Lactic Acid 6.6 -cannot rule out Sepsis (hypothermic, 6.6 LA, hypotensive, leukocytosis) -Leukocytosis likely reacive -Kana Khan in ED -ID consulted -Bcx, Ucx pending #Acute metabolic encephalopathy -likely from DKA vs CVA (unlikely) -CVA on last admission -cannot r/o sepsis -consider neuro consult if no improvement in mental status #Hypotensive -likely secondary to volume depletion -cannot r/o sepsis #Hypothermia -likely from cold weather vs. ?sepsis -asher bustos #Hypernatremia -Corrected Na 151 (for hyperglycemia) -2.3 L Free water deficit -On IV fluids -Do not correct >10 24 hours #High Anion Gap metabolic acidosis -plasma osmol -Ethylene glycol level -Salicyclates #GIANCARLO -likely secondary to volume depletion -IV fluids -Will follow -avoid nephrotoxins #Right middle MCA infarct -Last admission with R MCA CVA -Head CT: Evolving subacute R MCA infarct -Presented with CVA last month, admitted here. Stroke workup completed. Echo, dopplers, hypercoaguable all unremarkable. -Limited physical exam due to patient mental status -consider neuro consult and EEG if altered mental status change remains altered -repeat Head CT if needed #Hx of COPD -wheezing on PE -Duonebs PRN -O2 therapy #FEN -IV fluids NS @ 200ml/hour -Replete as needed -NPO #Ppx -Hep SQ TID Admit to ICU Visit type - Emergency Visit Emergency Visit: Yes ED Registration Date: 09/05/17 Care time: The patient presented to the Emergency Department on the above date and was hospitalized for further evaluation of their emergent condition. - New Patient This patient is new to me today: Yes Date on this admission: 09/05/17 - Critical Care Critical Care patient: Yes Total Critical Care Time (in minutes): 45 Critical Care Statement: The care of this patient involved high complexity decision making to prevent further life threatening deterioration of the patient 's condition and/or to evaluate & treat vital organ system(s) failure or risk of failure. Hospitalist Screening - Colonoscopy Questionnaire Colonoscopy Questionnaire: Colonoscopy Questionnaire - Patient: 50 - 75 years old and never had a screening colonoscopy: Unknown History of colon or rectal polyps, or CA: Unknown History of IBD, Crohn's disease or UC: Unknown History of abdominal radiation therapy as a child: Unknown - Relative: 1 with colon or rectal CA, or polyps at age 60 or younger: Unknown Colon or rectal CA diagnosed at age 45 or younger: Unknown Multiple relatives with colon or rectal CA: Unknown - Outcome: Screening Result: Negative Screen
[2017-09-05 22:20] LABS: ANION GAP 27 (8-16); BLOOD UREA NITROGEN 55 mg/dL (7-18); CALCIUM 7.2 mg/dL (8.5-10.1); CHLORIDE 112 mmol/L (98-107); CO2 7 mmol/L (21-32); SODIUM 146 mmol/L (136-145)
[2017-09-05 22:35] LABS: GLUCOSE,RANDOM 856 mg/dL (74-106); POTASSIUM 3.2 mmol/L (3.5-5.1)
[2017-09-05] MEDS: POTASSIUM CHLORIDE 40 MEQ in SODIUM CHLORIDE 1,000 ML IVPB SCH (22:37)
[2017-09-05] MEDS: NICOTINE 21 MG/24 HOURS TOPICAL PATCH TD SCH (22:44)
[2017-09-05] MEDS: ATORVASTATIN CA 80 MG TABLET (FP) PO SCH (22:45)
[2017-09-05] MEDS ORDERED: KCL 10 MEQ IVPB 10 MEQ/100 ML INFUS.BAG IVPB SCH (22:45)
[2017-09-05] MEDS: HEPARIN NA (PORCINE) 5,000 UNITS/ML 1ML VIAL SQ SCH (22:45)
[2017-09-05] MEDS: POTASSIUM CHLORIDE 10 MEQ in SODIUM CHLORIDE 100 ML IVPB SCH ×2 (22:59→23:48)
--- NOTE | 2017-09-05 23:13 | PN ---
Teaching Attending Note Name of Resident: Nancy Sosa ATTENDING PHYSICIAN STATEMENT I saw and evaluated the patient. Chart, data, imaging reviewed. I reviewed the resident's note and discussed the case with the resident. I agree with the resident's findings and plan as documented. SUBJECTIVE: Critically ill 47 yo woman with active tobacco (35 pack year), HLD, poorly controlled IDDM c/b recent CVA (left sided hemiparesis), gastroparesis who presented after being found down by neighbors (unknown time on ground) found to have DKA (glucose 1250, AG 39, +urine ketones). She was given insulin bolus, started on insulin drip and given IV fluid hydration. Found to be hypotensive, hypothermic, w/ leukocytosis, given vancomycin, zosyn empirically, cultures drawn. Transferred to ICU for further care. OBJECTIVE: Last Vital Signs Temp Pulse Resp BP Pulse Ox 98.6 F 103 H 18 92/45 92 L 09/05/17 22:00 09/05/17 22:00 09/05/17 22:00 09/05/17 22:00 09/05/17 20:27 general- lethargic, answers some questions, follows some commands heent- at, nc, dry oral mucosa neck -collapsed jvd, no masses cv-s1+s2+ rrr chest- wheezing/ coarse breath sounds-left lung >right abdomen- soft, bs decreased Ext- no edema Abnormal Lab Results 09/05/17 09/05/17 09/05/17 16:35 16:35 16:35 WBC 21.0 H D RBC 3.40 L Hgb 10.3 L D MCV 99.1 H D MCHC 30.4 L RDW 16.6 H D VBG pH 7.14 L* D POC VBG pCO2 17.2 L* Mixed VBG HCO3 5.7 L* Sodium 132 L Potassium Chloride 90 L Carbon Dioxide 6 L Anion Gap 36 H BUN 62 H Creatinine 2.6 H Random Glucose 1273 H* Lactic Acid Calcium 8.3 L Phosphorus 8.3 H Magnesium 3.2 H CK-MB (CK-2) 4.036 H Total Protein 5.9 L Albumin 3.2 L Urine Glucose (UA) Urine Ketones Acetone, Qual Positive large 3+ H 09/05/17 09/05/17 09/05/17 16:35 17:25 20:40 WBC RBC Hgb MCV MCHC RDW VBG pH POC VBG pCO2 Mixed VBG HCO3 Sodium 146 H Potassium 3.2 L Chloride 112 H Carbon Dioxide 7 L Anion Gap 27 H BUN 55 H Creatinine 2.0 H Random Glucose 856 H* Lactic Acid 6.6 H* Calcium 7.2 L Phosphorus Magnesium CK-MB (CK-2) Total Protein Albumin Urine Glucose (UA) 3+ H Urine Ketones 2+ H Acetone, Qual Head CT -evolving right sided MCA CVA EKG -sinus rhythm, no acute ST- T changes ASSESSMENT AND PLAN: Critically ill 47yo woman with poorly controlled DM, recent stroke admitted for DKA with HAGMA, GIANCARLO. Cannot r/o sepsis although no source of infection identified. #DKA- likely 2/2 medication noncompliance -admit to ICU -insulin drip -fingerstick q1hr -bmp q4 hr -supplement electrolytes prn -NPO for now -IVF hydration -bridge with basal insulin when gap closes -switch to D5W/1/2 NS when fs <250mg/dl -send a1c #HAGMA- likely 2/2 DKA- r/o other causes - MUDPILES -treat DKA -send etoh level in serum -send serum methanol level -send serum isopropyl etoh level -serum osm, check osmolar gap -ABG, calculate delta -delta gap #GIANCARLO - likely prerenal -send urine lytes, cr, osm -send serum osm -renal U/S -avoid nephrotoxic meds #Possible sepsis- hypothermia, hypotension, lactic acidosis, tachycardia, however no source of infection identified - cxr clear -send blood cultures, urine cultures -trend lactate -vancomycin, zosyn empirically #Pseudohyponatremia- corrected na- 151 -repeat bmp, ensure Na is not overcorrect >10 Meq in 24hrs #DVT ppx -heparin sc
[2017-09-06 02:30] LABS: ANION GAP 14 (8-16); BLOOD UREA NITROGEN 49 mg/dL (7-18); CALCIUM 7.2 mg/dL (8.5-10.1); CHLORIDE 124 mmol/L (98-107); CO2 14 mmol/L (21-32); CREATININE 1.7 mg/dL (0.55-1.02); MAGNESIUM 2.6 mg/dL (1.8-2.4); POTASSIUM 3.3 mmol/L (3.5-5.1); SODIUM 152 mmol/L (136-145)
[2017-09-06 02:33] LABS: GLUCOSE,RANDOM 491 mg/dL (74-106)
[2017-09-06 02:36] LABS: PHOSPHOROUS 0.9 mg/dL (2.5-4.9)
[2017-09-06] MEDS ORDERED: SODIUM PHOSPHATE - 0 MM in SODIUM CHLORIDE 250 ML IVPB ONE (02:43)
[2017-09-06] MEDS ORDERED: SODIUM CHLORIDE 0.45% IVPB SCH (02:45)
[2017-09-06] MEDS ORDERED: POTASSIUM CHLORIDE IVPB SCH (02:45)
[2017-09-06] MEDS ORDERED: SODIUM PHOSPHATE - 30 MM in SODIUM CHLORIDE 250 ML IVPB ONE (02:46)
[2017-09-06] MEDS: POTASSIUM CHLORIDE 40 MEQ in SODIUM CHLORIDE 1,000 ML IVPB SCH (03:34)
[2017-09-06] MEDS: HEPARIN NA (PORCINE) 5,000 UNITS/ML 1ML VIAL SQ SCH ×3 (06:11→21:17)
[2017-09-06] MEDS: INSULIN REGULAR 100 UNITS in SODIUM CHLORIDE 99 ML IVPB SCH (06:11)
[2017-09-06 06:28] LABS: HEMATOCRIT 28.8 % (32.4-45.2); HEMOGLOBIN 9.7 GM/dL (10.7-15.3); MCHC 33.7 g/dl (32.0-36.0); MEAN PLT VOLUME 8.2 fl (7.5-11.1); PLATELET COUNT 368 K/MM3 (134-434); RBC 3.24 M/mm3 (3.60-5.2); RDW 15.2 % (11.6-15.6); WHITE BLOOD COUNT 23.9 K/mm3 (4.0-10.0)
[2017-09-06 06:35] LABS: ANION GAP 8 (8-16); BLOOD UREA NITROGEN 46 mg/dL (7-18); CALCIUM 7.3 mg/dL (8.5-10.1); CHLORIDE 127 mmol/L (98-107); CO2 20 mmol/L (21-32); CREATININE 1.4 mg/dL (0.55-1.02); GLUCOSE,RANDOM 256 mg/dL (74-106); MAGNESIUM 2.3 mg/dL (1.8-2.4); PHOSPHOROUS 1.7 mg/dL (2.5-4.9); POTASSIUM 3.6 mmol/L (3.5-5.1); SODIUM 155 mmol/L (136-145)
[2017-09-06] MEDS ORDERED: SODIUM PHOSPHATE - 15 MM in SODIUM CHLORIDE 250 ML IVPB ONE (07:00)
[2017-09-06] MEDS ORDERED: DEXTROSE 5%-0.45% SALINE 1,000 ML with POTASSIUM CHLORIDE 40 MEQ IVPB SCH (07:00)
--- NOTE | 2017-09-06 07:25 | PN ---
Progress Note (short form) - Note Progress Note: Patient seen and examined in the ICU AG closed remains on insulin drip this AM given lethargic and not taking POs BP stable phos and potassium repleated O2 weaned to 1lpm BP stable temp improved and stable off asher hugger Scr improving Active Medications Acetaminophen (Tylenol -) 650 mg PO Q6H PRN PRN Reason: BACK PAIN Albuterol Sulfate (Ventolin 0.083% Nebulizer Soln -) 1 amp NEB Q6H PRN PRN Reason: SHORT OF BREATH/WHEEZING Aspirin (Ecotrin -) 325 mg PO DAILY [facility] Atorvastatin Calcium (Lipitor -) 80 mg PO HS [facility] Last Admin: 09/05/17 22:45 Dose: Not Given Heparin Sodium (Porcine) (Heparin -) 5,000 unit SQ TID [facility] Last Admin: 09/06/17 06:11 Dose: 5,000 unit Insulin Human Regular 100 (units/ Sodium Chloride) 100 mls @ 4.98 mls/hr IVPB TITR [facility]; 0.1 UNITS/KG/HR PRN Reason: Protocol Last Admin: 09/06/17 06:11 Dose: 0.1 units/kg/hr, 5 mls/hr Potassium Chloride 40 meq/ (Dextrose/Sodium Chloride) 1,020 mls @ 150 mls/hr IVPB ASDIR [facility] Last Admin: 09/06/17 07:08 Dose: 150 mls/hr Sodium Phosphate 15 mm/ Sodium (Chloride) 255 mls @ 62.5 mls/hr IVPB ONCE ONE Stop: 09/06/17 11:04 Nicotine (Nicoderm Patch -) 21 mg TD DAILY [facility] Last Admin: 09/05/17 22:44 Dose: 21 mg Vital Signs Period Temp Pulse Resp BP Sys/Rapp Pulse Ox Last 24 Hr 91.8 F-98.8 F 85-103 13-26 82-146/42-71 92-100 Intake & Output 09/03/17 09/04/17 09/05/17 09/06/17 23:59 23:59 23:59 23:59 Intake Total 5025 1650 Output Total 2850 Balance 2175 1650 Weight 59.421 kg 59.33 kg Exam: General: in bed w/o distress Neuro: PERRL, opens eyes to voice, localizing on right side, with drawaling on left. Pulm: CTA CV: s1, s2 RRR Abd: SNTND Ext: WWP +2 pulses CBCD WBC 21.0 K/mm3 (4.0-10.0) H D 09/05/17 16:35 RBC 3.40 M/mm3 (3.60-5.2) L 09/05/17 16:35 Hgb 10.3 GM/dL (10.7-15.3) L D 09/05/17 16:35 Hct 33.7 % (32.4-45.2) 09/05/17 16:35 MCV 99.1 fl (80-96) H D 09/05/17 16:35 MCHC 30.4 g/dl (32.0-36.0) L 09/05/17 16:35 RDW 16.6 % (11.6-15.6) H D 09/05/17 16:35 Plt Count 424 K/MM3 (134-434) D 09/05/17 16:35 MPV 9.3 fl (7.5-11.1) D 09/05/17 16:35 CMP Sodium 155 mmol/L (136-145) H 09/06/17 06:00 Potassium 3.6 mmol/L (3.5-5.1) 09/06/17 06:00 Chloride 127 mmol/L (98-107) H 09/06/17 06:00 Carbon Dioxide 20 mmol/L (21-32) L 09/06/17 06:00 Anion Gap 8 (8-16) 09/06/17 06:00 BUN 46 mg/dL (7-18) H 09/06/17 06:00 Creatinine 1.4 mg/dL (0.55-1.02) H 09/06/17 06:00 Creat Clearance w eGFR 19.65 (>60) 09/05/17 16:35 Random Glucose 256 mg/dL (74-106) H 09/06/17 06:00 Calcium 7.3 mg/dL (8.5-10.1) L 09/06/17 06:00 Total Bilirubin 0.5 mg/dL (0.2-1.0) D 09/05/17 16:35 AST 16 U/L (15-37) 09/05/17 16:35 ALT 29 U/L (12-78) 09/05/17 16:35 Alkaline Phosphatase 115 U/L (45-117) 09/05/17 16:35 Total Protein 5.9 g/dl (6.4-8.2) L 09/05/17 16:35 Albumin 3.2 g/dl (3.4-5.0) L 09/05/17 16:35 CARDIAC ENZYMES Creatine Kinase 169 IU/L (26-192) 09/05/17 16:35 Troponin I 0.02 ng/ml (0.00-0.05) 09/05/17 16:35 Cultures: Blood: NGTD Urine NGTD Problem List - Problems (1) Diabetic keto-acidosis Code(s): E13.10 - OTH DIABETES MELLITUS WITH KETOACIDOSIS WITHOUT COMA Qualifiers: Diabetes mellitus type: due to underlying condition Diabetes mellitus complication detail: with coma Qualified Code(s): E08.11 - Diabetes mellitus due to underlying condition with ketoacidosis with coma (2) Renal failure (ARF), acute on chronic Code(s): N17.9 - ACUTE KIDNEY FAILURE, UNSPECIFIED; N18.9 - CHRONIC KIDNEY DISEASE, UNSPECIFIED Qualifiers: Acute renal failure type: unspecified Chronic kidney disease stage: unspecified stage Qualified Code(s): N17.9 - Acute kidney failure, unspecified ; N18.9 - Chronic kidney disease, unspecified; N18.9 - Chronic kidney disease, unspecified (3) Gastroparesis Code(s): K31.84 - GASTROPARESIS (4) Chronic pain Code(s): G89.29 - OTHER CHRONIC PAIN Qualifiers: Chronic pain type: chronic pain syndrome Qualified Code(s): G89.4 - Chronic pain syndrome Assessment/Plan a/p: 47 yo woman IDDM c/b recent CVA, gastroparesis who was found down in the setting of DKA. AMS likely 2/2 DKA precipitating cause is unclear, does note appear infected at this time question possible seizure given recent CVA. Resolving GIANCARLO likely from dehydration -Leukocytosis likely reactive, f/u procalcitonin and hold off on ABX at this time given clear u/a and afebrile -consider neuro consult and EEG if mental status change remains altered -O2 for sat >88% -nicoderm patch -Cont Insulin drip 0.1units/kg/hr -IV fluids 200ml/hr w/ d5 1/2 NS -potassium replacement -Phos replacement -BMP q12hrs until AG closes -Once able to tolerate PO diet transition to insulin sq -UFH sq prophylaxis Boerem ACNP Pulm/CCM Problem List - Problems (1) Diabetic keto-acidosis Code(s): E13.10 - OTH DIABETES MELLITUS WITH KETOACIDOSIS WITHOUT COMA Qualifiers: Diabetes mellitus type: due to underlying condition Diabetes mellitus complication detail: with coma Qualified Code(s): E08.11 - Diabetes mellitus due to underlying condition with ketoacidosis with coma (2) Renal failure (ARF), acute on chronic Code(s): N17.9 - ACUTE KIDNEY FAILURE, UNSPECIFIED; N18.9 - CHRONIC KIDNEY DISEASE, UNSPECIFIED Qualifiers: Acute renal failure type: unspecified Chronic kidney disease stage: unspecified stage Qualified Code(s): N17.9 - Acute kidney failure, unspecified ; N18.9 - Chronic kidney disease, unspecified; N18.9 - Chronic kidney disease, unspecified (3) Gastroparesis Code(s): K31.84 - GASTROPARESIS (4) Chronic pain Code(s): G89.29 - OTHER CHRONIC PAIN Qualifiers: Chronic pain type: chronic pain syndrome Qualified Code(s): G89.4 - Chronic pain syndrome
--- NOTE | 2017-09-06 07:46 | PN ---
Progress Note (short form) - Note Progress Note: lethargy, moans to verbal and painful stimuli Current Medications Generic Name Dose Route Start Last Admin Trade Name Freq PRN Reason Stop Dose Admin Acetaminophen 650 mg 09/05/17 21:11 Tylenol - PO Q6H PRN BACK PAIN Albuterol Sulfate 1 amp 09/05/17 21:32 Ventolin 0.083% Nebulizer Soln - NEB Q6H PRN SHORT OF BREATH/WHEEZING Aspirin 325 mg 09/06/17 10:00 Ecotrin - PO DAILY [facility] Atorvastatin Calcium 80 mg 09/05/17 22:00 09/05/17 22:45 Lipitor - PO Not Given HS [facility] Heparin Sodium (Porcine) 5,000 unit 09/05/17 22:00 09/06/17 06:11 Heparin - SQ 5,000 unit TID [facility] Administration Insulin Human Regular 100 100 mls @ 4.98 mls/hr 09/05/17 18:00 09/06/17 06:11 units/ Sodium Chloride IVPB 0.1 units/kg/hr TITR [facility] 5 mls/hr Protocol Administration 0.1 UNITS/KG/HR Potassium Chloride 40 meq/ 1,020 mls @ 150 mls/hr 09/06/17 07:00 09/06/17 07: 08 Dextrose/Sodium Chloride IVPB 150 mls/hr ASDIR [facility] Administration Sodium Phosphate 15 mm/ Sodium 255 mls @ 62.5 mls/hr 09/06/17 07:00 Chloride IVPB 09/06/17 11:04 ONCE ONE Nicotine 21 mg 09/05/17 21:15 09/05/17 22:44 Nicoderm Patch - TD 21 mg DAILY [facility] Administration Last Vital Signs Temp Pulse Resp BP Pulse Ox 98.8 F 85 13 105/71 95 09/06/17 03:17 09/06/17 03:17 09/06/17 03:17 09/06/17 03:17 09/06/17 03:21 General lethargic, moans on verbal/tactile stimuli HEENT resists eye opening CV S1 S2 RRR no murmur/rub/gallop LUngs CTA B/L no wheezing/rales/rhonchi Abdomen soft NT/ND Extremities swelling limited to R hand. pulse intact, no bruising or dislocation noted on forearm CBCD WBC 21.0 K/mm3 (4.0-10.0) H D 09/05/17 16:35 RBC 3.40 M/mm3 (3.60-5.2) L 09/05/17 16:35 Hgb 10.3 GM/dL (10.7-15.3) L D 09/05/17 16:35 Hct 33.7 % (32.4-45.2) 09/05/17 16:35 MCV 99.1 fl (80-96) H D 09/05/17 16:35 MCHC 30.4 g/dl (32.0-36.0) L 09/05/17 16:35 RDW 16.6 % (11.6-15.6) H D 09/05/17 16:35 Plt Count 424 K/MM3 (134-434) D 09/05/17 16:35 MPV 9.3 fl (7.5-11.1) D 09/05/17 16:35 CMP Sodium 155 mmol/L (136-145) H 09/06/17 06:00 Potassium 3.6 mmol/L (3.5-5.1) 09/06/17 06:00 Chloride 127 mmol/L (98-107) H 09/06/17 06:00 Carbon Dioxide 20 mmol/L (21-32) L 09/06/17 06:00 Anion Gap 8 (8-16) 09/06/17 06:00 BUN 46 mg/dL (7-18) H 09/06/17 06:00 Creatinine 1.4 mg/dL (0.55-1.02) H 09/06/17 06:00 Creat Clearance w eGFR 19.65 (>60) 09/05/17 16:35 Calcium 7.3 mg/dL (8.5-10.1) L 09/06/17 06:00 Total Bilirubin 0.5 mg/dL (0.2-1.0) D 09/05/17 16:35 AST 16 U/L (15-37) 09/05/17 16:35 ALT 29 U/L (12-78) 09/05/17 16:35 Alkaline Phosphatase 115 U/L (45-117) 09/05/17 16:35 Total Protein 5.9 g/dl (6.4-8.2) L 09/05/17 16:35 Albumin 3.2 g/dl (3.4-5.0) L 09/05/17 16:35 A/P 47yo F wtih PMH DM, gastroparesis, chronic pain and CVA with L sided hemiparesis sent to the ER after found on the floor by her neighbor and found to be hypothermic and DKA 1. DKA- AG closed. on insulin ggt. awaiting for mental status to return in order to start foods. switch IVF to D5w, cont insulin ggt. frequent lab draws and BGM to monitor 2. Acute metabolic encephalopathy- liekly due to hypothermia and DKA. more responsive than arrival per notes. if does not improve should consider narcan as has hx of high dose of opiate use. frequent neurochecks. elevate HOB 3. Hypothermia- possible due to exposure however can not r/o sepsis vs hypothyroid. check TSH. +leukocytosis liekly acute phase reactant. awaiting AM labs. UA and CXR negative for infection. Cx sent. received vanco and zosyn in the ER. will hold further abx at this time as no source identified. hypothermia now resolved. ID consulted by the ER to further evaluate indication for abx 4. AG acidosis- due to DKA and lactic acidosis. lactic acidosis resolved. AG now closed 5. GIANCARLO- due to DKA and dehydration. improving. renal u/s pending. hold nephrotoxic agents. on IVF 6. Hypernatremia- Corrected Na 159. aggressive IVF hydration. switch IVF to D5w. trend Na 7. Hypophosphatemia- neutraphos 8. CVA- repeat Head CT does not show new infarct. will monitor for mental status to return. cont asa/statin 9. DVT ppx- hep sq 10. MICU monitoring due to mental status. can transfer to floors once mental status resolves Visit type - Emergency Visit Emergency Visit: Yes ED Registration Date: 09/05/17 Care time: The patient presented to the Emergency Department on the above date and was hospitalized for further evaluation of their emergent condition. - New Patient This patient is new to me today: Yes Date on this admission: 09/06/17 - Critical Care Critical Care patient: Yes Total Critical Care Time (in minutes): 40 Critical Care Statement: The care of this patient involved high complexity decision making to prevent further life threatening deterioration of the patient 's condition and/or to evaluate & treat vital organ system(s) failure or risk of failure. - Discharge Referral Referred to [facility] No
[2017-09-06] MEDS: ASPIRIN 325 MG ENTERIC COATED TABLET (FP) PO SCH (10:17)
[2017-09-06] MEDS: NICOTINE 21 MG/24 HOURS TOPICAL PATCH TD SCH (10:17)
[2017-09-06] MEDS ORDERED: ONDANSETRON 4 MG/2 ML VIAL IVPUSH PRN (11:13)
--- NOTE | 2017-09-06 12:31 | CON.ID ---
Consult Consult Specialty:: infectious diseases Reason for Consultation:: leukocytosis - History of Present Illness History of Present Illness: patient unable to give history which is taken from the charts patient currently very lethargic barely melissa to understand and respond 47 yo woman with active tobacco (35 pack year), HLD, poorly controlled IDDM c/b recent CVA (left sided hemiparesis), gastroparesis who presented after being found down by neighbors (unknow down time) found to have DKA (glucose 1250, AG 39, +ketones). In ED NIH stroke scale 14. Head CT showed evolving right MCA infarct. Labs also notable for leukocytosis (21) and she was given empiric zosyn and vanco. CXR clear. U/A w/o nitrates or leukesterase. Insulin drip and IVF started. Corrected sodium 150. 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: CVA (right MCA), Migraine Gastrointestinal: Yes: Other (Gastroparesis) ...LMP: 04/14/13 Musculoskeletal: Yes: Chronic low back pain Endocrine: Yes: Diabetes Mellitus Additional Medical History: dka in the past - Past Surgical History Past Surgical History: Yes: Cholecystectomy - Alcohol/Substance Use Hx Alcohol Use: No History of Substance Use: reports: None - Smoking History Smoking history: Current every day smoker Have you smoked in the past 12 months: Yes Aproximately how many cigarettes per day: 20 - Social History ADL: Independent History of Recent Travel: No Home Medications - Allergies Allergies/Adverse Reactions: Allergies Allergy/AdvReac Type Severity Reaction Status Date / Time No Known Allergies Allergy Verified 08/15/17 12:12 - Home Medications Home Medications: Ambulatory Orders Unobtainable [Unobtainable] 09/05/17 Family Disease History - Family Disease History Family Disease History: Heart Disease: Father (cad) Review of Systems Unable to obtain ROS, reason: unable to obtain Physical Exam Vital Signs: Vital Signs Temperature 99 F 09/06/17 12:00 Pulse Rate 94 H 09/06/17 12:00 Respiratory Rate 18 09/06/17 12:00 Blood Pressure 122/73 09/06/17 12:00 O2 Sat by Pulse Oximetry (%) 97 09/06/17 08:18 Constitutional: Yes: Calm, Other Eyes: Yes: Conjunctiva Clear HENT: Yes: Atraumatic, Normocephalic Neck: Yes: Supple, Trachea Midline Cardiovascular: Yes: Regular Rate and Rhythm. No: Bradycardia Respiratory: Yes: Regular, CTA Bilaterally. No: Accessory Muscle Use Gastrointestinal: Yes: Normal Bowel Sounds, Soft. No: Distention, Tenderness, Vomiting Musculoskeletal: Yes: WNL Extremities: Yes: WNL. No: Cold, Erythema Neurological: Yes: Alert, Confusion, Lethargy Psychiatric: Yes: Alert, Other Labs: CBC, BMP 09/06/17 06:00 09/06/17 06:00 Imaging - Results Chest X-ray: Report Reviewed, Image Reviewed Cat Scan: Report Reviewed, Image Reviewed Assessment/Plan Problem List - Problems (1) Diabetic keto-acidosis Code(s): E13.10 - OTH DIABETES MELLITUS WITH KETOACIDOSIS WITHOUT COMA Qualifiers: Diabetes mellitus type: due to underlying condition Diabetes mellitus complication detail: with coma Qualified Code(s): E08.11 - Diabetes mellitus due to underlying condition with ketoacidosis with coma (2) Renal failure (ARF), acute on chronic Code(s): N17.9 - ACUTE KIDNEY FAILURE, UNSPECIFIED; N18.9 - CHRONIC KIDNEY DISEASE, UNSPECIFIED Qualifiers: Acute renal failure type: unspecified Chronic kidney disease stage: unspecified stage Qualified Code(s): N17.9 - Acute kidney failure, unspecified ; N18.9 - Chronic kidney disease, unspecified; N18.9 - Chronic kidney disease, unspecified (3) Gastroparesis Code(s): K31.84 - GASTROPARESIS (4) Chronic pain Code(s): G89.29 - OTHER CHRONIC PAIN Qualifiers: Chronic pain type: chronic pain syndrome Qualified Code(s): G89.4 - Chronic pain syndrome after looking at the patient and the history at the moment i ahve low suspicion for a infectious focus. patient is very lethargic and her her neurological exam is normal her urine and her imaging studies are nor showing any infectious process plan continue current mgmt close watch hydration watch for rhabdo if wbc increases again then might initiate abx currently will hold off on starting abx monitor output rest as per icu cc time 45 min
[2017-09-06 13:20] LABS: ANION GAP 9 (8-16); BLOOD UREA NITROGEN 35 mg/dL (7-18); CHLORIDE 131 mmol/L (98-107); CO2 19 mmol/L (21-32); GLUCOSE,RANDOM 120 mg/dL (74-106); MAGNESIUM 2.2 mg/dL (1.8-2.4); PHOSPHOROUS 2.8 mg/dL (2.5-4.9); POTASSIUM 3.6 mmol/L (3.5-5.1); SODIUM 159 mmol/L (136-145)
[2017-09-06] MEDS: POTASSIUM CHLORIDE 20 MEQ in DEXTROSE 5%-WATER - 1,000 ML IVPB SCH (16:33)
[2017-09-06] MEDS ORDERED: NALOXONE HCL 0.4 MG/ML VIAL ONE (18:35)
[2017-09-06] MEDS ORDERED: DEXTROSE 10%-WATER - 1,000 ML IV SCH (18:45)
[2017-09-06] MEDS ORDERED: NALOXONE HCL 0.4 MG/ML VIAL IM ONE (19:45)
[2017-09-06] MEDS ORDERED: INSULIN DETEMIR 100 UNITS/ML MDV SQ ONE (20:46)
[2017-09-06 20:55] LABS: ANION GAP 12 (8-16); BLOOD UREA NITROGEN 25 mg/dL (7-18); CALCIUM 7.1 mg/dL (8.5-10.1); CHLORIDE 125 mmol/L (98-107); CO2 17 mmol/L (21-32); CREATININE 0.8 mg/dL (0.55-1.02); GLUCOSE,RANDOM 165 mg/dL (74-106); SODIUM 154 mmol/L (136-145)
[2017-09-06 20:56] LABS: POTASSIUM 3.8 mmol/L (3.5-5.1)
[2017-09-06] MEDS: ATORVASTATIN CA 80 MG TABLET (FP) PO SCH (21:17)
[2017-09-06] MEDS ORDERED: ACETAMINOPHEN 1000 MG/100 ML VIAL (NON FORMULARY) IVPB PRN (21:49)
[2017-09-06] MEDS: INSULIN SLIDING SCALE (NOVOLOG) 1 VIAL SQ SCH (22:23)
[2017-09-07] MEDS: POTASSIUM CHLORIDE 20 MEQ in DEXTROSE 5%-WATER - 1,000 ML IVPB SCH (00:34)
[2017-09-07] MEDS: HEPARIN NA (PORCINE) 5,000 UNITS/ML 1ML VIAL SQ SCH ×3 (06:15→21:46)
[2017-09-07] MEDS: INSULIN SLIDING SCALE (NOVOLOG) 1 VIAL SQ SCH ×4 (06:15→21:47)
[2017-09-07 06:27] LABS: HEMATOCRIT 27.6 % (32.4-45.2); HEMOGLOBIN 9.4 GM/dL (10.7-15.3); MEAN CELL VOLUME 88.2 fl (80-96); MEAN PLT VOLUME 7.9 fl (7.5-11.1); PLATELET COUNT 291 K/MM3 (134-434); RBC 3.13 M/mm3 (3.60-5.2); RDW 15.3 % (11.6-15.6)
[2017-09-07 06:28] LABS: ANION GAP 11 (8-16); BLOOD UREA NITROGEN 14 mg/dL (7-18); CALCIUM 7.1 mg/dL (8.5-10.1); CHLORIDE 118 mmol/L (98-107); CO2 21 mmol/L (21-32); CREATININE 0.7 mg/dL (0.55-1.02); GLUCOSE,RANDOM 225 mg/dL (74-106); MAGNESIUM 2.1 mg/dL (1.8-2.4); PHOSPHOROUS 1.3 mg/dL (2.5-4.9); SODIUM 150 mmol/L (136-145)
--- NOTE | 2017-09-07 07:29 | PN ---
Teaching Attending Note Name of Resident: Maddy Godinez ATTENDING PHYSICIAN STATEMENT I saw and evaluated the patient. I reviewed the resident's note and discussed the case with the resident. I agree with the resident's findings and plan as documented. SUBJECTIVE:c/o generalized weakness. aware she is in the hospital and remembers her friend finding her on the couch. states she had no symptoms the few days leading up to admission and was in normal state of health. has insulin pump which she carb counts and boluses herself. states her sugars are usually in 200- 300's. and remember her last read was 548 prior to being found on the couch. denies Cp, SOB< fever, chills, N/V/C/D, cough, dysuria, hematuria. OBJECTIVE: Last Vital Signs Temp Pulse Resp BP Pulse Ox 100.0 F H 86 18 148/87 100 09/07/17 06:00 09/07/17 06:00 09/07/17 06:00 09/07/17 06:00 09/06/17 20:47 Intake & Output 09/04/17 09/05/17 09/06/17 09/08/17 23:59 23:59 23:59 00:59 Intake Total 5025 4425 975 Output Total 2850 2700 1100 Balance 2175 1725 -125 Weight 131 lb 130 lb 12.8 oz 130 lb 12.8 oz General slow to respond, drowsy CV S1 S2 RRR no murmur/rub/gallop Lungs CTA B/L no wheezing/rales/rhonchi Abdomen soft NT/ND Extremities no pedal edema ASSESSMENT AND PLAN: 47yo F wtih PMH DM, gastroparesis, chronic pain and CVA with L sided hemiparesis sent to the ER after found on the floor by her neighbor and found to be hypothermic and DKA 1. DKA- AG closed. received levemir 10 units once mental status improved. still on d10 can switch to d5 (only due to hypernatremia). will need to start 10 units daily. need to discuss with pt about using insulin pump in the future when she is able to hold conversation. cont iss,bgm. 2. Acute metabolic encephalopathy- liekly due to hypothermia and DKA and severe electrolyte disturbances. was going to give narcan last night due to mental status but became alert before given. will need to monitor mental status closely. frequent neurocheckes. 3. Hypothermia- possible due to exposure however can not r/o sepsis vs hypothyroid. TSH is low. will repeat with T3/T4. agree with ID and holding abx at this time. 4. AG acidosis- due to DKA and lactic acidosis. resolved. 5. GIANCARLO- due to DKA and dehydration. resolved. can d/c perez. 6. Hypernatremia- slowly improving. on d5w. frequent Na checks till normalizes. 7. Hypophosphatemia-kphos 8. Hypokaelmia- Kcl in IVF 9. CVA- repeat Head CT does not show new infarct. will monitor for mental status to return. cont asa/statin 10. DVT ppx- hep sq 11. stable for transfer to med-surg The care of this patient involved high complexity decision making to prevent further life threatening deterioration of the patient's condition and/or to evaluate & treat vital organ system(s) failure or risk of failure. 42 minutes
[2017-09-07] MEDS: NAPH,MB-DB/K PH,MBDB POWDER PACKET PO SCH ×2 (10:02→12:49)
[2017-09-07] MEDS: NICOTINE 21 MG/24 HOURS TOPICAL PATCH TD SCH (10:02)
[2017-09-07] MEDS: ASPIRIN 325 MG ENTERIC COATED TABLET (FP) PO SCH (10:02)
[2017-09-07] MEDS ORDERED: D5-1/2NS+20 MEQ KCL - 20 MEQ/1,000 ML INFUS.BAG IV SCH (10:15)
--- NOTE | 2017-09-07 11:07 | PN ---
Physical Exam: SUBJECTIVE: Patient seen and examined OBJECTIVE: Vital Signs Period Temp Pulse Resp BP Sys/Rapp Pulse Ox Last 24 Hr 98.4 F-100.1 F 86-97 16-18 108-148/66-93 100 GENERAL: The patient is awake, alert, and fully oriented, in no acute distress. HEAD: Normal with no signs of trauma. EYES: PERRL, extraocular movements intact, sclera anicteric, conjunctiva clear. No ptosis. Mourh: dry mucus membranes; roof of mouth with closed blisters LUNGS: Breath sounds equal, clear to auscultation bilaterally, no wheezes, no crackles, no accessory muscle use. HEART: Regular rate and rhythm, S1, S2 without murmur, rub or gallop. ABDOMEN: Soft, nontender, nondistended, normoactive bowel sounds, no guarding, no rebound, no hepatosplenomegaly, no masses. EXTREMITIES: 2+ pulses, warm, well-perfused, no edema. NEUROLOGICAL: lethargic; AAO to self and place; not to time; muscle strength of bilateral LE 2/5 Laboratory Results - last 24 hr 09/05/17 09/05/17 09/05/17 00:00 00:00 17:25 WBC RBC Hgb Hct MCV MCH MCHC RDW Plt Count MPV Sodium Potassium Chloride Carbon Dioxide Anion Gap BUN Creatinine POC Glucometer Random Glucose Calcium Phosphorus Magnesium TSH Urine Osmolality 435 Ur Random Sodium 34 Ur Random Potassium 15.1 Ur Random Chloride 15 Urine Creatinine 16.4 L Salicylates 09/05/17 09/06/17 09/06/17 23:00 06:10 10:08 WBC RBC Hgb Hct MCV MCH MCHC RDW Plt Count MPV Sodium Potassium Chloride Carbon Dioxide Anion Gap BUN Creatinine POC Glucometer [phone] Random Glucose Calcium Phosphorus Magnesium TSH 0.12 L Urine Osmolality Ur Random Sodium Ur Random Potassium Ur Random Chloride Urine Creatinine Salicylates 4.353 09/06/17 09/06/17 09/06/17 12:00 12:35 14:06 WBC RBC Hgb Hct MCV MCH MCHC RDW Plt Count MPV Sodium 159 H Potassium 3.6 Chloride 131 H Carbon Dioxide 19 L Anion Gap 9 BUN 35 H Creatinine 1.0 POC Glucometer 171.78504 [phone] Random Glucose 120 H Calcium 7.0 L Phosphorus 2.8 Magnesium 2.2 TSH Urine Osmolality Ur Random Sodium Ur Random Potassium Ur Random Chloride Urine Creatinine Salicylates 09/06/17 09/06/17 09/06/17 16:21 19:54 20:13 WBC RBC Hgb Hct MCV MCH MCHC RDW Plt Count MPV Sodium 154 H Potassium 3.8 Chloride 125 H Carbon Dioxide 17 L Anion Gap 12 BUN 25 H Creatinine 0.8 POC Glucometer 94.78388 203.28178 Random Glucose 165 H Calcium 7.1 L Phosphorus Magnesium TSH Urine Osmolality Ur Random Sodium Ur Random Potassium Ur Random Chloride Urine Creatinine Salicylates 09/06/17 09/07/17 09/07/17 21:49 03:11 05:50 WBC 16.0 H D RBC 3.13 L Hgb 9.4 L Hct 27.6 L MCV 88.2 MCH 30.0 MCHC 34.0 RDW 15.3 Plt Count 291 D MPV 7.9 Sodium Potassium Chloride Carbon Dioxide Anion Gap BUN Creatinine POC Glucometer 297.18762 274.27430 Random Glucose Calcium Phosphorus Magnesium TSH Urine Osmolality Ur Random Sodium Ur Random Potassium Ur Random Chloride Urine Creatinine Salicylates 09/07/17 09/07/17 05:50 06:00 WBC RBC Hgb Hct MCV MCH MCHC RDW Plt Count MPV Sodium 150 H Potassium 3.0 L Chloride 118 H Carbon Dioxide 21 Anion Gap 11 BUN 14 Creatinine 0.7 POC Glucometer [phone] Random Glucose 225 H Calcium 7.1 L Phosphorus 1.3 L Magnesium 2.1 TSH Urine Osmolality Ur Random Sodium Ur Random Potassium Ur Random Chloride Urine Creatinine Salicylates Active Medications Generic Name Dose Route Start Last Admin Trade Name Freq PRN Reason Stop Dose Admin Acetaminophen 650 mg 09/05/17 21:11 Tylenol - PO Q6H PRN BACK PAIN Acetaminophen 1,000 mg 09/06/17 21:49 09/07/17 07:07 Ofirmev Injection - IVPB 1,000 mg Q6H PRN Administration BACK PAIN Albuterol Sulfate 1 amp 09/05/17 21:32 Ventolin 0.083% Nebulizer Soln - NEB Q6H PRN SHORT OF BREATH/WHEEZING Aspirin 325 mg 09/06/17 10:00 09/07/17 10:02 Ecotrin - PO 325 mg DAILY [facility] Administration Atorvastatin Calcium 80 mg 09/05/17 22:00 09/06/17 21:17 Lipitor - PO Not Given HS [facility] Heparin Sodium (Porcine) 5,000 unit 09/05/17 22:00 09/07/17 06:15 Heparin - SQ 5,000 unit TID [facility] Administration Insulin Human Regular 100 100 mls @ 4.98 mls/hr 09/05/17 18:00 09/06/17 06:11 units/ Sodium Chloride IVPB 0.1 units/kg/hr TITR [facility] 5 mls/hr Protocol Administration 0.1 UNITS/KG/HR Potassium Chloride/Dextrose/Sod Cl 20 meq in 1,000 mls @ 83 mls/hr 09/07/17 10 :15 D5-1/2ns+20 Meq Kcl - IV ASDIR [facility] Insulin Aspart 1 vial 09/06/17 22:00 09/07/17 06:15 Novolog Vial Sliding Scale - SQ 3 units ACHS [facility] Administration Protocol Lidocaine/Aluminum/Magnesium/Simeth 5 ml 09/07/17 12:00 Magic Mouthwash *Sjr Formula* - MM Q6HPO [facility] Nicotine 21 mg 09/05/17 21:15 09/07/17 10:02 Nicoderm Patch - TD 21 mg DAILY [facility] Administration Ondansetron HCl 4 mg 09/06/17 11:13 Zofran Injection IVPUSH Q6H PRN NAUSEA AND/OR VOMITING ASSESSMENT/PLAN: 47 year old female found in her found at home lethargic, found to be in DKA; currently off insulin drip; gap closed. Still with multiple electrolyte disturbances. #DKA: resolving -gap closed -off insulin drip -start sq insulin -oral intake #hypernatremia; -was on d5; switch to 1/2 ns -decrease NA 2-3mEq/L/hr; fequeant bmp checks -correct for serum glucose when necessary #Hypokalemia: -K added to saline; repeat k still low; 40mg po kcl stat; dinora with bmp this evening #hypophosphatemia; replace K phos #lethargy/altered mental ; DKA effects; now resolved; may be due to electrolyte disturbances; if does not improve with electrolyte correction would get repeat head CT due to recent stroke VTE: sq heparin Disposition: transfer to floors Case discussed with attending Dr. Portillo Godinez PGY2 Visit type - Emergency Visit Emergency Visit: Yes ED Registration Date: 09/05/17 Care time: The patient presented to the Emergency Department on the above date and was hospitalized for further evaluation of their emergent condition. - New Patient This patient is new to me today: Yes Date on this admission: 09/11/17 - Critical Care Critical Care patient: No
[2017-09-07] MEDS ORDERED: INSULIN DETEMIR 100 UNITS/ML MDV SQ ONE (11:13)
--- NOTE | 2017-09-07 12:31 | PN ---
Progress Note (short form) - Note Progress Note: Pulm/CCM Progress Note: 24HR: -gap closed, on Sq insulin, taking PO -Na improving -afebrile off abx -in for floor bed Active Medications Acetaminophen (Tylenol -) 650 mg PO Q6H PRN PRN Reason: BACK PAIN Acetaminophen (Ofirmev Injection -) 1,000 mg IVPB Q6H PRN PRN Reason: BACK PAIN Last Admin: 09/07/17 07:07 Dose: 1,000 mg Albuterol Sulfate (Ventolin 0.083% Nebulizer Soln -) 1 amp NEB Q6H PRN PRN Reason: SHORT OF BREATH/WHEEZING Aspirin (Ecotrin -) 325 mg PO DAILY [facility] Last Admin: 09/07/17 10:02 Dose: 325 mg Atorvastatin Calcium (Lipitor -) 80 mg PO HS [facility] Last Admin: 09/06/17 21:17 Dose: Not Given Heparin Sodium (Porcine) (Heparin -) 5,000 unit SQ TID [facility] Last Admin: 09/07/17 06:15 Dose: 5,000 unit Insulin Human Regular 100 (units/ Sodium Chloride) 100 mls @ 4.98 mls/hr IVPB TITR [facility]; 0.1 UNITS/KG/HR PRN Reason: Protocol Last Admin: 09/06/17 06:11 Dose: 0.1 units/kg/hr, 5 mls/hr Potassium Chloride/Dextrose/Sod Cl (D5-1/2ns+20 Meq Kcl -) 20 meq in 1,000 mls @ 83 mls/hr IV ASDIR [facility] Insulin Aspart (Novolog Vial Sliding Scale -) 1 vial SQ ACHS [facility] PRN Reason: Protocol Last Admin: 09/07/17 06:15 Dose: 3 units Lidocaine/Aluminum/Magnesium/Simeth (Magic Mouthwash *Sjr Formula* -) 5 ml MM Q6HPO [facility] Nicotine (Nicoderm Patch -) 21 mg TD DAILY [facility] Last Admin: 09/07/17 10:02 Dose: 21 mg Ondansetron HCl (Zofran Injection) 4 mg IVPUSH Q6H PRN PRN Reason: NAUSEA AND/OR VOMITING Vital Signs Temp 99.9 F H 09/07/17 08:21 Pulse 87 09/07/17 10:00 Resp 18 09/07/17 10:00 BP 136/77 09/07/17 10:00 Pulse Ox 100 09/06/17 20:47 Intake & Output 09/06/17 09/07/17 09/07/17 22:59 11:59 23:59 Intake Total Output Total Balance Weight Intake: IV 20 R AC 09/05 D5-1/2Ns - 1,000 ml @ 150 mls/hr IVPB ASDIR [facility] with KCl - 40 Meq Rx#: [id number] NOVOLIN R VIAL *For IVPUSH or IV DRIP Only* 100 UNITS In Normal Saline - 99 ml @ 0.1 UNITS/KG/HR 4.98 mls/hr IVPB TITR [facility] Rx#: [id number] IVPB Oral Output: Urine Perez Other: Voiding Method Bowel Movement Weight Measurement Method Exam: General: in bed w/o distress Neuro: PERRL, stable deficit Pulm: CTA CV: s1, s2 RRR Abd: SNTND Ext: WWP +2 pulses,stable edema CBC, BMP 09/07/17 05:50 Microbiology 09/05/17 17:25 Urine - Urine - Catheterized Urine Culture - Final NO GROWTH OBTAINED 09/05/17 16:35 Blood - Peripheral Venous Blood Culture - Preliminary NO GROWTH OBTAINED AFTER 24 HOURS, INCUBATION TO CONTINUE FOR 4 DAYS. 09/05/17 16:30 Blood - Peripheral Venous Blood Culture - Preliminary NO GROWTH OBTAINED AFTER 24 HOURS, INCUBATION TO CONTINUE FOR 4 DAYS. Problem List - Problems (1) Diabetic keto-acidosis Code(s): E13.10 - OTH DIABETES MELLITUS WITH KETOACIDOSIS WITHOUT COMA Qualifiers: Diabetes mellitus type: due to underlying condition Diabetes mellitus complication detail: with coma Qualified Code(s): E08.11 - Diabetes mellitus due to underlying condition with ketoacidosis with coma (2) Renal failure (ARF), acute on chronic Code(s): N17.9 - ACUTE KIDNEY FAILURE, UNSPECIFIED; N18.9 - CHRONIC KIDNEY DISEASE, UNSPECIFIED Qualifiers: Acute renal failure type: unspecified Chronic kidney disease stage: unspecified stage Qualified Code(s): N17.9 - Acute kidney failure, unspecified ; N18.9 - Chronic kidney disease, unspecified; N18.9 - Chronic kidney disease, unspecified (3) Gastroparesis Code(s): K31.84 - GASTROPARESIS (4) Chronic pain Code(s): G89.29 - OTHER CHRONIC PAIN Qualifiers: Chronic pain type: chronic pain syndrome Qualified Code(s): G89.4 - Chronic pain syndrome Assessment/Plan a/p: 47 yo woman IDDM c/b recent CVA, gastroparesis who was found down in the setting of DKA. AMS likely 2/2 DKA precipitating cause is unclear, does note appear infected at this time question possible seizure given recent CVA. Resolving GIANCARLO likely from dehydration -afebrile off abx -O2 for sat >88% -nicoderm patch -SQ insulin -potassium electrolyte replacement -BMP q12hrs -UFH sq prophylaxis -diabetic diet -D/c perez -tx to med surg [place] ACNP [id number]
[2017-09-07 12:37] LABS: ALBUMIN 2.3 g/dl (3.4-5.0); ALK PHOS 277 U/L (45-117); ANION GAP 10 (8-16); BILIRUBIN,TOTAL 0.3 mg/dL (0.2-1.0); BLOOD UREA NITROGEN 9 mg/dL (7-18); CALCIUM 7.2 mg/dL (8.5-10.1); CHLORIDE 113 mmol/L (98-107); CO2 24 mmol/L (21-32); CREATININE 0.6 mg/dL (0.55-1.02); GLUCOSE,RANDOM 172 mg/dL (74-106); PHOSPHOROUS 1.3 mg/dL (2.5-4.9); SGPT/ALT 133 U/L (12-78); SODIUM 147 mmol/L (136-145)
[2017-09-07 12:46] LABS: SGOT/AST 605 U/L (15-37)
[2017-09-07 12:47] LABS: POTASSIUM 2.8 mmol/L (3.5-5.1)
--- NOTE | 2017-09-07 14:19 | PN ---
Progress Note, Physician History of Present Illness: stable no overnight events wbc trending down - Current Medication List Current Medications: Active Medications Acetaminophen (Tylenol -) 650 mg PO Q6H PRN PRN Reason: BACK PAIN Acetaminophen (Ofirmev Injection -) 1,000 mg IVPB Q6H PRN PRN Reason: BACK PAIN Last Admin: 09/07/17 07:07 Dose: 1,000 mg Albuterol Sulfate (Ventolin 0.083% Nebulizer Soln -) 1 amp NEB Q6H PRN PRN Reason: SHORT OF BREATH/WHEEZING Aspirin (Ecotrin -) 325 mg PO DAILY [facility] Last Admin: 09/07/17 10:02 Dose: 325 mg Atorvastatin Calcium (Lipitor -) 80 mg PO HS [facility] Last Admin: 09/06/17 21:17 Dose: Not Given Heparin Sodium (Porcine) (Heparin -) 5,000 unit SQ TID [facility] Last Admin: 09/07/17 13:02 Dose: 5,000 unit Insulin Human Regular 100 (units/ Sodium Chloride) 100 mls @ 4.98 mls/hr IVPB TITR [facility]; 0.1 UNITS/KG/HR PRN Reason: Protocol Last Admin: 09/06/17 06:11 Dose: 0.1 units/kg/hr, 5 mls/hr Potassium Chloride/Dextrose/Sod Cl (D5-1/2ns+20 Meq Kcl -) 20 meq in 1,000 mls @ 83 mls/hr IV ASDIR [facility] Potassium Chloride 10 meq/ (Sodium Chloride) 105 mls @ 100 mls/hr IVPB Q60M [facility] Stop: 09/07/17 16:59 Insulin Aspart (Novolog Vial Sliding Scale -) 1 vial SQ ACHS [facility] PRN Reason: Protocol Last Admin: 09/07/17 12:59 Dose: 2 units Lidocaine/Aluminum/Magnesium/Simeth (Magic Mouthwash *Sjr Formula* -) 5 ml MM Q6HPO [facility] Nicotine (Nicoderm Patch -) 21 mg TD DAILY [facility] Last Admin: 09/07/17 10:02 Dose: 21 mg Ondansetron HCl (Zofran Injection) 4 mg IVPUSH Q6H PRN PRN Reason: NAUSEA AND/OR VOMITING - Objective Vital Signs: Vital Signs Temperature 99.7 F H 09/07/17 12:00 Pulse Rate 78 09/07/17 12:00 Respiratory Rate 22 09/07/17 12:00 Blood Pressure 116/67 09/07/17 12:00 O2 Sat by Pulse Oximetry (%) 100 09/06/17 20:47 Constitutional: Yes: No Distress, Calm Cardiovascular: Yes: Regular Rate and Rhythm Respiratory: Yes: Regular, CTA Bilaterally Gastrointestinal: Yes: Normal Bowel Sounds, Soft Musculoskeletal: Yes: WNL Extremities: Yes: WNL Neurological: Yes: Alert, Other Labs: CBC, BMP 09/07/17 05:50 09/07/17 12:04 Assessment/Plan Problem List - Problems (1) Diabetic keto-acidosis Code(s): E13.10 - OTH DIABETES MELLITUS WITH KETOACIDOSIS WITHOUT COMA Qualifiers: Diabetes mellitus type: due to underlying condition Diabetes mellitus complication detail: with coma Qualified Code(s): E08.11 - Diabetes mellitus due to underlying condition with ketoacidosis with coma (2) Renal failure (ARF), acute on chronic Code(s): N17.9 - ACUTE KIDNEY FAILURE, UNSPECIFIED; N18.9 - CHRONIC KIDNEY DISEASE, UNSPECIFIED Qualifiers: Acute renal failure type: unspecified Chronic kidney disease stage: unspecified stage Qualified Code(s): N17.9 - Acute kidney failure, unspecified ; N18.9 - Chronic kidney disease, unspecified; N18.9 - Chronic kidney disease, unspecified (3) Gastroparesis Code(s): K31.84 - GASTROPARESIS (4) Chronic pain Code(s): G89.29 - OTHER CHRONIC PAIN Qualifiers: Chronic pain type: chronic pain syndrome Qualified Code(s): G89.4 - Chronic pain syndrome after looking at the patient and the history at the moment i ahve low suspicion for a infectious focus. patient is very lethargic and her her neurological exam is normal her urine and her imaging studies are nor showing any infectious process plan continue current mgmt close watch hydration improving rest as per icu stable cc time 40 min
[2017-09-07] MEDS: POTASSIUM CHLORIDE 10 MEQ in SODIUM CHLORIDE 100 ML IVPB SCH ×3 (15:11→17:31)
[2017-09-07] MEDS ORDERED: POTASSIUM CHLORIDE TABS 20 MEQ TABLET.ER (FP) PO ONE ×2 (15:40→20:58)
[2017-09-07] MEDS ORDERED: PT OWN MED DRAWER 7, Y5N ONE (16:12)
[2017-09-07] MEDS: MAG HYDROX/ALH/SMC/DPHA/LIDO 240 ML MOUTHWASH MM SCH ×3 (16:36→23:24)
[2017-09-07] MEDS ORDERED: ALBUTEROL SO4 0.083% IH SOL 2.5 MG/3 ML VIAL.NEB. NEB PRN (18:59)
[2017-09-07 19:43] LABS: ANION GAP 8 (8-16); BLOOD UREA NITROGEN 8 mg/dL (7-18); CALCIUM 7.1 mg/dL (8.5-10.1); CHLORIDE 114 mmol/L (98-107); CO2 26 mmol/L (21-32); CREATININE 0.5 mg/dL (0.55-1.02); GLUCOSE,RANDOM 73 mg/dL (74-106); SODIUM 148 mmol/L (136-145)
[2017-09-07 19:52] LABS: POTASSIUM 2.9 mmol/L (3.5-5.1)
--- NOTE | 2017-09-07 20:32 | EKG ---
Test Reason : Blood Pressure : / mmHG Vent. Rate : 092 BPM Atrial Rate : 092 BPM P-R Int : 128 ms QRS Dur : 100 ms QT Int : 418 ms P-R-T Axes : 066 076 037 degrees QTc Int : 516 ms NORMAL SINUS RHYTHM POSSIBLE LEFT ATRIAL ENLARGEMENT NONSPECIFIC ST ABNORMALITY PROLONGED QT ABNORMAL ECG WHEN COMPARED WITH ECG OF 15-AUG-2017 02:21, T WAVE AMPLITUDE HAS INCREASED QT HAS LENGTHENED Confirmed by MARTHA ALONSO, ROMIE ([id number]) on 09/07/2017 8:32:28 PM Referred By: Confirmed By:ROMIE THOMAS MD
[2017-09-07] MEDS: D5-1/2NS+20 MEQ KCL - 20 MEQ/1,000 ML INFUS.BAG IV SCH (20:33)
[2017-09-07] MEDS: ACETAMINOPHEN 325 MG TABLET (FP) PO PRN (21:45)
[2017-09-07] MEDS: ATORVASTATIN CA 80 MG TABLET (FP) PO SCH (21:47)
[2017-09-07] MEDS: ONDANSETRON 4 MG/2 ML VIAL IVPUSH PRN (23:24)
[2017-09-08] MEDS: D5-1/2NS+20 MEQ KCL - 20 MEQ/1,000 ML INFUS.BAG IV SCH ×3 (00:42→19:51)
[2017-09-08] MEDS ORDERED: ACETAMINOPHEN 650 MG/20.3 ML ORAL SOLUTION (CUPS) PO ONE (01:47)
--- NOTE | 2017-09-08 05:51 | PN ---
Physical Exam: SUBJECTIVE: Patient seen and examined by me this AM - A&Ox2. Pt transferred from ICU overnight. No major overnight events. BGM 59 overnight, corrected with oral hydration to 120. Afebrile, stable. - Pt complaining of epigastric pain, bloating. Unable to tolerate solid foods or oral medications by mouth, states that they "wont go down". Also complaining of back pain, mild dysuria. Denies any CP, SOB, N/V, vision changes. - Adamant that staff contact oral surgeon, Dr. Foley, for details on tooth extraction/bridge revision and prophylactic abx. States that inferior incisors are irritating/traumatizing palate. Also complaining of tooth pain in R lower jaw. - Hypokalemic to 2.9 yesterday, still with WBC count of 16 yesterday OBJECTIVE: Vital Signs Intake & Output 09/05/17 09/06/17 09/07/17 09/08/17 22:59 22:59 23:59 23:59 Intake Total 1196 Output Total Balance 1196 Weight Period Temp Pulse Resp BP Sys/Rapp Pulse Ox Last 24 Hr 97.8 F-100.0 F 75-87 18-22 116-148/66-93 96 GENERAL: A&Ox2. NAD. HEAD: Normal with no signs of trauma. EYES: PERRL, extraocular movements intact, sclera anicteric, conjunctiva clear. No ptosis. ENT: Poor dentition. R lateral incisor with mild gum-line erythema, no other lesions noted. Ears normal, nares patent. NECK: Trachea midline, full range of motion, supple. LUNGS: Breath sounds equal, clear to auscultation bilaterally, no wheezes, no crackles, no accessory muscle use. HEART: Regular rate and rhythm, S1. Prominent S2. No murmurs, rub or gallop. ABDOMEN: Mild tenderness to deep palpation in all four quadrants. Soft, nondistended, normoactive bowel sounds, no guarding, no rebound, no hepatosplenomegaly, no masses. EXTREMITIES: 2+ pulses, warm, well-perfused, no edema. NEUROLOGICAL: Cranial nerves II through XII grossly intact. 5/5 strength in R UE /LE with preserved sensation. 0/5 strength in distal LUE, distal/proximal LLE, with no sensation to light touch. 1+ biceps/patellar reflexes on L, 2+ on right. PSYCH: Normal mood, normal affect. SKIN: Warm, dry, normal turgor, no rashes or lesions noted Laboratory CBC, BMP 09/08/17 08:10 09/08/17 08:10 09/07/17 05:50 09/07/17 18:57 09/05/17 09/06/17 09/07/17 13:15 18:03 05:50 WBC 16.0 H D RBC 3.13 L Hgb 9.4 L Hct 27.6 L MCV 88.2 MCH 30.0 MCHC 34.0 RDW 15.3 Plt Count 291 D MPV 7.9 Sodium Potassium Chloride Carbon Dioxide Anion Gap BUN Creatinine Creat Clearance w eGFR POC Glucometer [id number] Random Glucose Calcium Phosphorus Magnesium Total Bilirubin AST ALT Alkaline Phosphatase Total Protein Albumin Urine Eosinophils None seen 09/07/17 09/07/17 09/07/17 05:50 06:00 10:19 WBC RBC Hgb Hct MCV MCH MCHC RDW Plt Count MPV Sodium 150 H Potassium 3.0 L Chloride 118 H Carbon Dioxide 21 Anion Gap 11 BUN 14 Creatinine 0.7 Creat Clearance w eGFR POC Glucometer 263.99921 205.32289 Random Glucose 225 H Calcium 7.1 L Phosphorus 1.3 L Magnesium 2.1 Total Bilirubin AST ALT Alkaline Phosphatase Total Protein Albumin Urine Eosinophils 09/07/17 09/07/17 09/07/17 12:04 16:27 18:57 WBC RBC Hgb Hct MCV MCH MCHC RDW Plt Count MPV Sodium 147 H 148 H Potassium 2.8 L* 2.9 L* Chloride 113 H 114 H Carbon Dioxide 24 26 Anion Gap 10 8 BUN 9 8 Creatinine 0.6 0.5 L Creat Clearance w eGFR > 60 POC Glucometer [phone] Random Glucose 172 H 73 L Calcium 7.2 L 7.1 L Phosphorus 1.3 L Magnesium Total Bilirubin 0.3 D AST 605 H ALT 133 H Alkaline Phosphatase 277 H Total Protein 5.0 L Albumin 2.3 L Urine Eosinophils 09/07/17 09/07/17 21:36 23:44 WBC RBC Hgb Hct MCV MCH MCHC RDW Plt Count MPV Sodium Potassium Chloride Carbon Dioxide Anion Gap BUN Creatinine Creat Clearance w eGFR POC Glucometer 59 130 Random Glucose Calcium Phosphorus Magnesium Total Bilirubin AST ALT Alkaline Phosphatase Total Protein Albumin Urine Eosinophils Active Medications Generic Name Dose Route Start Last Admin Trade Name Freq PRN Reason Stop Dose Admin Acetaminophen 650 mg 09/07/17 18:59 09/07/17 21:45 Tylenol - PO 650 mg Q6H PRN Administration BACK PAIN Albuterol Sulfate 1 amp 09/07/17 18:59 Ventolin 0.083% Nebulizer Soln - NEB Q6H PRN SHORT OF BREATH/WHEEZING Aspirin 325 mg 09/08/17 10:00 Ecotrin - PO DAILY [facility] Atorvastatin Calcium 80 mg 09/07/17 22:00 09/07/17 21:47 Lipitor - PO 80 mg HS [facility] Administration Heparin Sodium (Porcine) 5,000 unit 09/07/17 22:00 09/07/17 21:46 Heparin - SQ 5,000 unit TID [facility] Administration Potassium Chloride/Dextrose/Sod Cl 20 meq in 1,000 mls @ 83 mls/hr 09/07/17 18 :59 09/08/17 00:42 D5-1/2ns+20 Meq Kcl - IV 83 mls/hr ASDIR [facility] Administration Insulin Aspart 1 vial 09/07/17 22:00 09/07/17 21:47 Novolog Vial Sliding Scale - SQ Not Given ACHS [facility] Protocol Insulin Detemir 10 units 09/08/17 07:00 Levemir Vial SQ 0700 [facility] Lidocaine/Aluminum/Magnesium/Simeth 5 ml 09/08/17 00:00 09/07/17 23:24 Magic Mouthwash *Sjr Formula* - MM 5 ml Q6HPO [facility] Administration Nicotine 21 mg 09/08/17 10:00 Nicoderm Patch - TD DAILY [facility] Ondansetron HCl 4 mg 09/07/17 18:59 09/07/17 23:24 Zofran Injection IVPUSH 4 mg Q6H PRN Administration NAUSEA AND/OR VOMITING Microbiology 09/05/17 16:35 Blood - Peripheral Venous Blood Culture - Preliminary NO GROWTH OBTAINED AFTER 48 HOURS, INCUBATION TO CONTINUE FOR 3 DAYS. 09/05/17 16:30 Blood - Peripheral Venous Blood Culture - Preliminary NO GROWTH OBTAINED AFTER 48 HOURS, INCUBATION TO CONTINUE FOR 3 DAYS. 09/05/17 17:25 Urine - Urine - Catheterized Urine Culture - Final NO GROWTH OBTAINED Head CT 09/05 - Findings: There is an evolving subacute infarct in the right MCA territory, involving the temporoparietal lobes, frontal lobe and insula, with decreased sulcal compression and new patchy gyriform hyperattenuation along the periphery of these infarct, most likely attributed to laminar necrosis. No compelling evidence of new acute transcortical infarction. There are no new mass effects. There is no midline shift or hydrocephalus. The calvarium is intact. The visualized paranasal sinuses and mastoid air cells are clear. Renal U/S 09/06 - Impression: 1. No hydronephrosis. 2. Borderline mildly enlarged kidneys with borderline echogenic cortices. These findings are equivocal for diabetic nephropathy. ASSESSMENT/PLAN: 47 yo woman w/ pmh of IDDM, gastroparesis, R CVA, currently admitted after being found unconscious by neighbor, determined to be in severe DKA. AG closed, off insulin drip, transferred out of ICU. Afebrile, hemo stable, improving clinically. Still with multiple electrolyte abnormalities. #DKA - AG closed. Resolving. Hypoglycemic overnight to 59, resolved with oral hydration. Insulin drip d/c'ed. Diabetic diet ordered. - Levemir decreased from 10u to 8u - Insulin SS; BGM Q4h - Started on thick liquids - zofran for N/V - Monitor for hypoglycemia - Hold insulin pump at this time #hypernatremia - 148 -> 147 today -c/w d51/2ns + KCL 20 -Serial BMPs -Correct as needed #Hypokalemia - 3.3 today; s/p kcl riders x3 yesterday - C/w d51/2 ns + 20meg KCL - PO Kphos - Serial BMPs - Replete as needed #hypophosphatemia - 1.0 today - Kphos PO x2 today - Monitor phos; replete as needed #AMS - secondary to DKA and hypothermia; MS improved significantly, at baseline - Repeat CT head if no improvement - Trend neuro status #Chronic back pain - tylenol PO #Dysphagia - Oral care with magic mouthwash - S+S ordered given dysphagia; cleared for dysphagia puree/thick liquids #Oral pain/tooth abscess - no abscess noted on exam; pt states she needs bridge revision after trauma to oral cavity during fall - f/u w/ oral surgeon, Dr. Foley as outpt - scheduled appt w/ dentist, Dr. De La Vega, on October 24 - Pt was previously on clindamycin for suspected dental abscess with possible extraction; however not medically cleared given prior CVA in Jun for 3 months; will hold off on abx for now #Nicotine dependence - Nicoderm patch #Prior CVA - Repeat CT w/ no acute changes; prior CVA in R MCA - Monitor MS - c/w ASA/statin FEN: F: D51/2NS 83cc + KCL E: Monitor lytes; correct hypok, hypophos N: Diabetic diet PPX - HSQ Pt eval and d/c home possibly tomorrow if no electrolyte abnormalities Plan discussed with attending, Dr. Portillo Camacho, PGY1 Visit type - Emergency Visit Emergency Visit: Yes ED Registration Date: 09/05/17 Care time: The patient presented to the Emergency Department on the above date and was hospitalized for further evaluation of their emergent condition. - New Patient This patient is new to me today: Yes Date on this admission: 09/08/17 - Critical Care Critical Care patient: No
[2017-09-08] MEDS: ONDANSETRON 4 MG/2 ML VIAL IVPUSH PRN ×3 (06:06→20:18)
[2017-09-08] MEDS: HEPARIN NA (PORCINE) 5,000 UNITS/ML 1ML VIAL SQ SCH ×3 (06:06→21:44)
[2017-09-08] MEDS: MAG HYDROX/ALH/SMC/DPHA/LIDO 240 ML MOUTHWASH MM SCH ×4 (06:06→18:16)
[2017-09-08] MEDS: INSULIN SLIDING SCALE (NOVOLOG) 1 VIAL SQ SCH ×4 (06:07→23:14)
[2017-09-08] MEDS ORDERED: INSULIN DETEMIR 100 UNITS/ML MDV SQ ONE ×2 (06:29→07:00)
[2017-09-08] MEDS ORDERED: INSULIN (NOVOLOG) ASPART 100 UNITS/ML 10ML VIAL ONE ×2 (06:29→11:54)
[2017-09-08] MEDS ORDERED: INSULIN DETEMIR 100 UNITS/ML MDV SQ SCH (07:00)
[2017-09-08] MEDS: POTASSIUM CHLORIDE 20 MEQ in DEXTROSE 5%-WATER - 1,000 ML IVPB SCH (07:26)
[2017-09-08 08:38] LABS: BASO % 0.2 % (0-2.0); EOS % 0.3 % (0-4.5); HEMATOCRIT 30.4 % (32.4-45.2); HEMOGLOBIN 10.3 GM/dL (10.7-15.3); LYMPH % 22.1 % (8-40); MCH 29.7 pg (25.7-33.7); MEAN CELL VOLUME 87.4 fl (80-96); MEAN PLT VOLUME 7.5 fl (7.5-11.1); MONO % 3.8 % (3.8-10.2); NEUT % 73.6 % (42.8-82.8); PLATELET COUNT 268 K/MM3 (134-434); RBC 3.48 M/mm3 (3.60-5.2); RDW 15.1 % (11.6-15.6); WHITE BLOOD COUNT 11.9 K/mm3 (4.0-10.0)
[2017-09-08 09:04] LABS: ALBUMIN 2.4 g/dl (3.4-5.0); ANION GAP 13 (8-16); BILIRUBIN,TOTAL 0.5 mg/dL (0.2-1.0); BLOOD UREA NITROGEN 8 mg/dL (7-18); CALCIUM 7.7 mg/dL (8.5-10.1); CHLORIDE 111 mmol/L (98-107); CO2 23 mmol/L (21-32); CREATININE 0.6 mg/dL (0.55-1.02); GLUCOSE,RANDOM 201 mg/dL (74-106); MAGNESIUM 2.2 mg/dL (1.8-2.4); POTASSIUM 3.3 mmol/L (3.5-5.1); SGPT/ALT 135 U/L (12-78); SODIUM 147 mmol/L (136-145); TOT PROT 5.4 g/dl (6.4-8.2)
[2017-09-08 09:05] LABS: SGOT/AST 402 U/L (15-37)
[2017-09-08 09:10] LABS: ALK PHOS 299 U/L (45-117)
[2017-09-08] MEDS ORDERED: PT OWN MED DRAWER 7, Y5N ONE ×3 (09:36→23:10)
[2017-09-08] MEDS: ASPIRIN 325 MG ENTERIC COATED TABLET (FP) PO SCH (10:07)
[2017-09-08] MEDS: NICOTINE 21 MG/24 HOURS TOPICAL PATCH TD SCH (10:07)
[2017-09-08] MEDS ORDERED: NAPH,MB-DB/K PH,MBDB POWDER PACKET PO ONE ×2 (12:21→16:00)
[2017-09-08] MEDS: ACETAMINOPHEN 650 MG/20.3 ML ORAL SOLUTION (CUPS) PO PRN ×2 (12:33→19:51)
--- NOTE | 2017-09-08 12:37 | PN ---
Progress Note (short form) - Note Progress Note: Feels OK. Noted symptomatic hypoglycemia this AM, that was corrected with oral intake. No CP or SOB. Intake & Output 09/05/17 09/06/17 09/07/17 09/08/17 22:59 22:59 23:59 23:59 Intake Total 1436 Output Total Balance 1436 Weight Last Vital Signs Temp Pulse Resp BP Pulse Ox 99.5 F 83 20 123/73 96 09/08/17 08:42 09/08/17 08:42 09/08/17 08:42 09/08/17 08:42 09/07/17 21:00 Active Medications Acetaminophen (Tylenol -) 650 mg PO Q6H PRN PRN Reason: BACK PAIN Last Admin: 09/07/17 21:45 Dose: 650 mg Acetaminophen (Tylenol Oral Solution -) 650 mg PO Q6H PRN PRN Reason: PAIN LEVEL 4 - 6 Albuterol Sulfate (Ventolin 0.083% Nebulizer Soln -) 1 amp NEB Q6H PRN PRN Reason: SHORT OF BREATH/WHEEZING Aspirin (Ecotrin -) 325 mg PO DAILY [facility] Last Admin: 09/08/17 10:07 Dose: 325 mg Atorvastatin Calcium (Lipitor -) 80 mg PO HS [facility] Last Admin: 09/07/17 21:47 Dose: 80 mg Heparin Sodium (Porcine) (Heparin -) 5,000 unit SQ TID [facility] Last Admin: 09/08/17 06:06 Dose: 5,000 unit Potassium Chloride/Dextrose/Sod Cl (D5-1/2ns+20 Meq Kcl -) 20 meq in 1,000 mls @ 83 mls/hr IV ASDIR [facility] Last Admin: 09/08/17 00:42 Dose: 83 mls/hr Insulin Aspart (Novolog Vial Sliding Scale -) 1 vial SQ ACHS [facility] PRN Reason: Protocol Last Admin: 09/08/17 12:20 Dose: 3 units Lidocaine/Aluminum/Magnesium/Simeth (Magic Mouthwash *Sjr Formula* -) 5 ml MM Q6HPO [facility] Last Admin: 09/08/17 12:22 Dose: 5 ml Nicotine (Nicoderm Patch -) 21 mg TD DAILY [facility] Last Admin: 09/08/17 10:07 Dose: 21 mg Ondansetron HCl (Zofran Injection) 4 mg IVPUSH Q6H PRN PRN Reason: NAUSEA AND/OR VOMITING Last Admin: 09/08/17 12:21 Dose: 4 mg General: NAD Neuro:stable deficit Pulm: CTA CV: S1, S2 RRR Abd: Soft, (+) BS Ext:+2 pulses, stable edema Laboratory Results - last 24 hr 09/05/17 09/05/17 09/05/17 13:15 16:53 19:24 WBC RBC Hgb Hct MCV MCH MCHC RDW Plt Count MPV Neutrophils % Lymphocytes % Monocytes % Eosinophils % Basophils % Sodium Potassium Chloride Carbon Dioxide Anion Gap BUN Creatinine Creat Clearance w eGFR POC Glucometer > 400 > 400 Random Glucose Calcium Phosphorus Magnesium Total Bilirubin AST ALT Alkaline Phosphatase Total Protein Albumin Urine Eosinophils None seen 09/05/17 09/06/17 09/06/17 23:48 00:48 01:51 WBC RBC Hgb Hct MCV MCH MCHC RDW Plt Count MPV Neutrophils % Lymphocytes % Monocytes % Eosinophils % Basophils % Sodium Potassium Chloride Carbon Dioxide Anion Gap BUN Creatinine Creat Clearance w eGFR POC Glucometer > 400 > 400 > 400 Random Glucose Calcium Phosphorus Magnesium Total Bilirubin AST ALT Alkaline Phosphatase Total Protein Albumin Urine Eosinophils 09/06/17 09/07/17 09/07/17 02:54 12:04 16:27 WBC RBC Hgb Hct MCV MCH MCHC RDW Plt Count MPV Neutrophils % Lymphocytes % Monocytes % Eosinophils % Basophils % Sodium 147 H Potassium 2.8 L* Chloride 113 H Carbon Dioxide 24 Anion Gap 10 BUN 9 Creatinine 0.6 Creat Clearance w eGFR > 60 POC Glucometer > 400 145.35736 Random Glucose 172 H Calcium 7.2 L Phosphorus 1.3 L Magnesium Total Bilirubin 0.3 D AST 605 H ALT 133 H Alkaline Phosphatase 277 H Total Protein 5.0 L Albumin 2.3 L Urine Eosinophils 09/07/17 09/07/17 09/07/17 18:57 21:36 23:44 WBC RBC Hgb Hct MCV MCH MCHC RDW Plt Count MPV Neutrophils % Lymphocytes % Monocytes % Eosinophils % Basophils % Sodium 148 H Potassium 2.9 L* Chloride 114 H Carbon Dioxide 26 Anion Gap 8 BUN 8 Creatinine 0.5 L Creat Clearance w eGFR POC Glucometer 59 130 Random Glucose 73 L Calcium 7.1 L Phosphorus Magnesium Total Bilirubin AST ALT Alkaline Phosphatase Total Protein Albumin Urine Eosinophils 09/08/17 09/08/17 09/08/17 06:03 08:10 08:10 WBC 11.9 H RBC 3.48 L Hgb 10.3 L Hct 30.4 L MCV 87.4 MCH 29.7 MCHC 34.0 RDW 15.1 Plt Count 268 MPV 7.5 Neutrophils % 73.6 D Lymphocytes % 22.1 D Monocytes % 3.8 Eosinophils % 0.3 Basophils % 0.2 Sodium 147 H Potassium 3.3 L Chloride 111 H Carbon Dioxide 23 Anion Gap 13 BUN 8 Creatinine 0.6 Creat Clearance w eGFR > 60 POC Glucometer 258 Random Glucose 201 H Calcium 7.7 L Phosphorus 1.0 L* Magnesium 2.2 Total Bilirubin 0.5 D AST 402 H ALT 135 H Alkaline Phosphatase 299 H Total Protein 5.4 L Albumin 2.4 L Urine Eosinophils 09/08/17 11:04 WBC RBC Hgb Hct MCV MCH MCHC RDW Plt Count MPV Neutrophils % Lymphocytes % Monocytes % Eosinophils % Basophils % Sodium Potassium Chloride Carbon Dioxide Anion Gap BUN Creatinine Creat Clearance w eGFR POC Glucometer 299 Random Glucose Calcium Phosphorus Magnesium Total Bilirubin AST ALT Alkaline Phosphatase Total Protein Albumin Urine Eosinophils Problem List - Problems (1) Diabetic keto-acidosis Code(s): E13.10 - OTH DIABETES MELLITUS WITH KETOACIDOSIS WITHOUT COMA Qualifiers: Diabetes mellitus type: due to underlying condition Diabetes mellitus complication detail: with coma Qualified Code(s): E08.11 - Diabetes mellitus due to underlying condition with ketoacidosis with coma (2) Renal failure (ARF), acute on chronic Code(s): N17.9 - ACUTE KIDNEY FAILURE, UNSPECIFIED; N18.9 - CHRONIC KIDNEY DISEASE, UNSPECIFIED Qualifiers: Acute renal failure type: unspecified Chronic kidney disease stage: unspecified stage Qualified Code(s): N17.9 - Acute kidney failure, unspecified ; N18.9 - Chronic kidney disease, unspecified; N18.9 - Chronic kidney disease, unspecified (3) Gastroparesis Code(s): K31.84 - GASTROPARESIS (4) Chronic pain Code(s): G89.29 - OTHER CHRONIC PAIN Qualifiers: Chronic pain type: chronic pain syndrome Qualified Code(s): G89.4 - Chronic pain syndrome Assessment/Plan Glycemic control No smoking Replete lytes VTE prophylaxis Follow BMP Dr Otero
--- NOTE | 2017-09-08 13:58 | PN ---
Progress Note, Physician History of Present Illness: patient txed out of icu has been stable had hypoglycemia corrected no other issues currently - Current Medication List Current Medications: Active Medications Acetaminophen (Tylenol -) 650 mg PO Q6H PRN PRN Reason: BACK PAIN Last Admin: 09/07/17 21:45 Dose: 650 mg Acetaminophen (Tylenol Oral Solution -) 650 mg PO Q6H PRN PRN Reason: PAIN LEVEL 4 - 6 Last Admin: 09/08/17 12:33 Dose: 650 mg Albuterol Sulfate (Ventolin 0.083% Nebulizer Soln -) 1 amp NEB Q6H PRN PRN Reason: SHORT OF BREATH/WHEEZING Aspirin (Ecotrin -) 325 mg PO DAILY [facility] Last Admin: 09/08/17 10:07 Dose: 325 mg Atorvastatin Calcium (Lipitor -) 80 mg PO HS [facility] Last Admin: 09/07/17 21:47 Dose: 80 mg Heparin Sodium (Porcine) (Heparin -) 5,000 unit SQ TID [facility] Last Admin: 09/08/17 06:06 Dose: 5,000 unit Potassium Chloride/Dextrose/Sod Cl (D5-1/2ns+20 Meq Kcl -) 20 meq in 1,000 mls @ 83 mls/hr IV ASDIR [facility] Last Admin: 09/08/17 00:42 Dose: 83 mls/hr Insulin Aspart (Novolog Vial Sliding Scale -) 1 vial SQ ACHS [facility] PRN Reason: Protocol Last Admin: 09/08/17 12:20 Dose: 3 units Lidocaine/Aluminum/Magnesium/Simeth (Magic Mouthwash *Sjr Formula* -) 5 ml MM Q6HPO [facility] Last Admin: 09/08/17 12:22 Dose: 5 ml Nicotine (Nicoderm Patch -) 21 mg TD DAILY [facility] Last Admin: 09/08/17 10:07 Dose: 21 mg Ondansetron HCl (Zofran Injection) 4 mg IVPUSH Q6H PRN PRN Reason: NAUSEA AND/OR VOMITING Last Admin: 09/08/17 12:21 Dose: 4 mg - Objective Vital Signs: Vital Signs Temperature 98.7 F 09/08/17 13:45 Pulse Rate 72 09/08/17 13:45 Respiratory Rate 17 09/08/17 13:45 Blood Pressure 130/77 09/08/17 13:45 O2 Sat by Pulse Oximetry (%) 96 09/08/17 09:00 Constitutional: Yes: No Distress, Calm Cardiovascular: Yes: Regular Rate and Rhythm Respiratory: Yes: Regular, CTA Bilaterally Gastrointestinal: Yes: Normal Bowel Sounds, Soft Musculoskeletal: Yes: WNL Extremities: Yes: WNL Neurological: Yes: Alert, Oriented Psychiatric: Yes: Alert Labs: CBC, BMP 09/08/17 08:10 09/08/17 08:10 Assessment/Plan Problem List - Problems (1) Diabetic keto-acidosis Code(s): E13.10 - OTH DIABETES MELLITUS WITH KETOACIDOSIS WITHOUT COMA Qualifiers: Diabetes mellitus type: due to underlying condition Diabetes mellitus complication detail: with coma Qualified Code(s): E08.11 - Diabetes mellitus due to underlying condition with ketoacidosis with coma (2) Renal failure (ARF), acute on chronic Code(s): N17.9 - ACUTE KIDNEY FAILURE, UNSPECIFIED; N18.9 - CHRONIC KIDNEY DISEASE, UNSPECIFIED Qualifiers: Acute renal failure type: unspecified Chronic kidney disease stage: unspecified stage Qualified Code(s): N17.9 - Acute kidney failure, unspecified ; N18.9 - Chronic kidney disease, unspecified; N18.9 - Chronic kidney disease, unspecified (3) Gastroparesis Code(s): K31.84 - GASTROPARESIS (4) Chronic pain Code(s): G89.29 - OTHER CHRONIC PAIN Qualifiers: Chronic pain type: chronic pain syndrome Qualified Code(s): G89.4 - Chronic pain syndrome after looking at the patient and the history at the moment i ahve low suspicion for a infectious focus. patient is very lethargic and her her neurological exam is normal her urine and her imaging studies are nor showing any infectious process plan continue current mgmt wbc trending don monitor sugars rest as per primary
--- NOTE | 2017-09-08 15:00 | CONSULT ---
Admitting History and Physical - Primary Care Physician PCP: Deb Nath - Admission History of Present Illness: 47yo F with PMH DM, gastroparesis, chronic pain and CVA with L sided hemiparesis sent to the ER after found on the floor by her neighbor and found to be hypothermic and DKA Pt reports falling and "knocking out " her teeth. She can not chew and her mouth perez. No evidence of sores or krys. Tooth roots noted. History Source: Patient Limitations to Obtaining History: No Limitations - Past Medical History [employer]: Yes: CVA (right MCA), Migraine Gastrointestinal: Yes: Other (Gastroparesis) ...LMP: 04/14/13 Musculoskeletal: Yes: Chronic low back pain Endocrine: Yes: Diabetes Mellitus - Past Surgical History Past Surgical History: Yes: Cholecystectomy - Smoking History Smoking history: Current every day smoker Have you smoked in the past 12 months: Yes Aproximately how many cigarettes per day: 20 - Alcohol/Substance Use Hx Alcohol Use: No History of Substance Use: reports: None - Social History ADL: Independent History of Recent Travel: No History - Admission Reason For Visit: ACUTE ON CHRONIC RENAL FAILURE; DKA - Diagnostics CT Scan: Report Reviewed (Head CT 09/05 - Findings: There is an evolving subacute infarct in the right MCA territory, involving the temporoparietal lobes, frontal lobe and insula, with decreased sulcal compression and new patchy gyriform hyperattenuation along the periphery of these infarct, most likely attributed to laminar necrosis. No compelling evidence of new acute transcortical infarction. There are no new mass effects. There is no midline shift or hydrocephalus. The calvarium is intact. The visualized paranasal sinuses and mastoid air cells are clear.) - General Mental Status: Alert and Oriented, Awake and Alert, Able to Follow Commands Attention: Intact Ability to Follow Directions: Good Head/Neck Control: WFL - Hearing Hearing: Functional Speech Evaluation - Communication Primary Language: DUTCH Communication: Yes: Within Normal Limits Oral Expression Ability: Yes: No Impairment - Speech Production Able to Make Needs Known: Yes: WNL Intelligibility: Yes: WNL - Speech Characteristics Voice Loudness: Normal Voice Pitch: Yes: Normal Voice Phonatory-based Quality: Yes: Normal Speech Pattern: Normal Speech Clarity: < 100% Nasal Resonance: Normal Articulation: Yes: Precise Rate of Speech: Intact - Language/Auditory Comprehension Follows: Yes: 2 Stage Simple Commands - Language/Verbal Expression Able to Respond to Simple Queries: Yes: WNL Able to Communicate Wants and Needs: Yes: WNL Functional Communication Status: Yes: WNL Attention: Yes: Intact - Swallow Evaluation/Bedside Assessment Current Nutritional Intake: Regular, Thin Liquids Dentition: Yes: Edentulous (upper), Missing Teeth Facial Symmetry at Rest: Symmetrical Facial Symmetry on Retraction: Symmetrical Sensation: Normal Against Resistance Opening: Normal Against Resistance Closing: Normal Pucker Lips: Normal Smile: Normal Lingual Movement: Normal, Symmetric Lingual Speed of Movement: Normal Lingual Movement Strgth Against Opposition: Normal Lingual Movement Characteristics: Normal Soft Palate Description: Normal Color Hard Palate Description: Normal Color Velopharyngeal Movement: Normal Laryngeal Elevation: WFL Laryngeal Movement: Able to Palpate Rate of Intake: WFL Bolus Size: Small Labial Seal: WFL Chewing: Impaired Oral Prep Time: WFL A-P Transit: WFL Pocketing: None Odynophagia: Oral (reported) Coughing/Throat Clear: No Change in Voice: No Recommendations - Speech Evaluation, Impression/Plan Impression: Recently lost teeth during fall. Unable to chew. Swallowing seems intact. - Dysphagia Impressions/Plan Dysphagia Impressions: Mild Impairment *Silent aspiration: cannot be R/O at bedside Recommendations: Other (Dental consult upon d/c) - Recommendations Diet Consistency: Dysphagia Pureed (DM) Medication Administration: Whole with water Liquids: Thin Liquids Supplement: Glucerna
--- NOTE | 2017-09-08 15:04 | PN ---
Teaching Attending Note Name of Resident: Roberto Camacho ATTENDING PHYSICIAN STATEMENT I saw and evaluated the patient. I reviewed the resident's note and discussed the case with the resident. I agree with the resident's findings and plan as documented. SUBJECTIVE:c/o mouth pain. unable to swallow regular food due to mouth pain, no dysphagia or odynophagia. denies CP, SOB< fever, chills, N/V/C/D. no symptoms during hypoglycemic episode last night. OBJECTIVE: Last Vital Signs Temp Pulse Resp BP Pulse Ox 98.7 F 72 17 130/77 96 09/08/17 13:45 09/08/17 13:45 09/08/17 13:45 09/08/17 13:45 09/08/17 09:00 General NAD A&O x3 HEENT no oral lesions, no erythema or drainage noted CV S1 S2 RRR no murmur/rub/gallop Lungs CTA B/L no wheezing/rales/rhonchi Abdomen soft NT/ND Extremities no pedal edema ASSESSMENT AND PLAN: 47yo F wtih PMH DM, gastroparesis, chronic pain and CVA with L sided hemiparesis sent to the ER after found on the floor by her neighbor and found to be hypothermic and DKA 1. DKA-resolved. episode of hypogylcemia last night, likely due to poor oral intake. will cont levemir 10 units daily for now. titrate to optimize control. will hold insulin pump at this time. cont iss,bgm. 2. Acute metabolic encephalopathy- liekly due to hypothermia and DKA and severe electrolyte disturbances. now at baseline. 3. Oral pain- nothing appreciated. will have swallow eval to ensure no dysphagia and can tolerate po. will place call to dentist to further inquire about what dental surgery she has planned and if something should be considered at this time. 4. Hypothermia- possible due to exposure however can not r/o sepsis vs hypothyroid. TSH is low. will repeat with T3/T4. agree with ID and holding abx at this time. 5. AG acidosis- due to DKA and lactic acidosis. resolved. 6. GIANCARLO- due to DKA and dehydration. resolved. 7. Hypernatremia- slowly improving. on d5w. frequent Na checks till normalizes. 8. Hypophosphatemia-kphos 9. Hypokaelmia- Kcl in IVF 10. CVA- repeat Head CT does not show new infarct. will monitor for mental status to return. cont asa/statin 11. DVT ppx- hep sq 12. PT eval. discharge home once electrolyte abnormalities are corrected.
[2017-09-08] MEDS ORDERED: POTASSIUM PHOSPHATE 30 MM in DEXTROSE 5%-WATER - 500 ML IVPB ONE (16:00)
[2017-09-08] MEDS: ATORVASTATIN CA 80 MG TABLET (FP) PO SCH (21:45)
[2017-09-08] MEDS: LIDOCAINE 5% TOPICAL PATCH TP SCH (23:16)
[2017-09-09] MEDS: ACETAMINOPHEN 325 MG TABLET (FP) PO PRN ×2 (02:22→14:58)
[2017-09-09] MEDS: ONDANSETRON 4 MG/2 ML VIAL IVPUSH PRN ×3 (02:22→20:08)
[2017-09-09] MEDS: ACETAMINOPHEN 650 MG/20.3 ML ORAL SOLUTION (CUPS) PO PRN (02:33)
[2017-09-09] MEDS: LIDOCAINE PATCH REMOVAL MC SCH ×2 (04:28→22:18)
[2017-09-09] MEDS: HEPARIN NA (PORCINE) 5,000 UNITS/ML 1ML VIAL SQ SCH ×3 (05:26→22:15)
[2017-09-09] MEDS: MAG HYDROX/ALH/SMC/DPHA/LIDO 240 ML MOUTHWASH MM SCH ×4 (05:26→23:42)
[2017-09-09] MEDS ORDERED: PT OWN MED DRAWER 7, Y5N ONE ×3 (05:48→23:40)
[2017-09-09] MEDS ORDERED: INSULIN DETEMIR 100 UNITS/ML MDV SQ ONE ×2 (06:00→08:45)
--- NOTE | 2017-09-09 06:10 | PN ---
Physical Exam: SUBJECTIVE: Patient seen and examined by me this AM - No major events overnight. Complaining of dysuria, lower abdominal pain, lower back pain. Still with oral pain. Able to tolerate PO liquid tylenol, purees. Wants stronger pain medication. Informed that her oral surgeon will see her on discharge for possible dental extraction. No f/c/n/v/d. Refusing IV access. - Plan to contact pain management physician, Dr. Jules, for further elucidation of pain regimen. Contact info [phone] - required 13 units novolog yesterday. BGM elevated to 350s in AM. OBJECTIVE: Vital Signs Intake & Output 09/06/17 09/07/17 09/08/17 09/09/17 22:59 23:59 23:59 23:59 Intake Total 3559 520 Output Total Balance 3559 520 Weight Period Temp Pulse Resp BP Sys/Rapp Pulse Ox Last 24 Hr 98.7 F-100.0 F 68-83 17-20 123-132/57-77 96-96 GENERAL: A&Ox3. NAD. HEAD: Normal with no signs of trauma. EYES: PERRL, extraocular movements intact, sclera anicteric, conjunctiva clear. No ptosis. ENT: Poor dentition. no other lesions noted. Ears normal, nares patent. NECK: Trachea midline, full range of motion, supple. LUNGS: Breath sounds equal, clear to auscultation bilaterally, no wheezes, no crackles, no accessory muscle use. HEART: Regular rate and rhythm, S1. Prominent S2. No murmurs, rub or gallop. ABDOMEN: + suprapubic tenderness. Soft, nondistended, normoactive bowel sounds, no guarding, no rebound, no hepatosplenomegaly, no masses. BL lower back pain on palpation. EXTREMITIES: 2+ pulses, warm, well-perfused, no edema. NEUROLOGICAL: Cranial nerves II through XII grossly intact. 5/5 strength in R UE /LE with preserved sensation. 0/5 strength in distal LUE, distal/proximal LLE PSYCH: Normal mood, normal affect. Laboratory Results - last 24 hr CBC, BMP 09/09/17 06:30 09/09/17 06:30 09/08/17 08:10 09/08/17 08:10 09/05/17 09/05/17 09/05/17 13:15 16:53 19:24 WBC RBC Hgb Hct MCV MCH MCHC RDW Plt Count MPV Neutrophils % Lymphocytes % Monocytes % Eosinophils % Basophils % Sodium Potassium Chloride Carbon Dioxide Anion Gap BUN Creatinine Creat Clearance w eGFR POC Glucometer > 400 > 400 Random Glucose Calcium Phosphorus Magnesium Total Bilirubin AST ALT Alkaline Phosphatase Total Protein Albumin Ethylene Glycol None detected 09/05/17 09/06/17 09/06/17 23:48 00:48 01:51 WBC RBC Hgb Hct MCV MCH MCHC RDW Plt Count MPV Neutrophils % Lymphocytes % Monocytes % Eosinophils % Basophils % Sodium Potassium Chloride Carbon Dioxide Anion Gap BUN Creatinine Creat Clearance w eGFR POC Glucometer > 400 > 400 > 400 Random Glucose Calcium Phosphorus Magnesium Total Bilirubin AST ALT Alkaline Phosphatase Total Protein Albumin Ethylene Glycol 09/06/17 09/08/17 09/08/17 02:54 06:03 08:10 WBC 11.9 H RBC 3.48 L Hgb 10.3 L Hct 30.4 L MCV 87.4 MCH 29.7 MCHC 34.0 RDW 15.1 Plt Count 268 MPV 7.5 Neutrophils % 73.6 D Lymphocytes % 22.1 D Monocytes % 3.8 Eosinophils % 0.3 Basophils % 0.2 Sodium Potassium Chloride Carbon Dioxide Anion Gap BUN Creatinine Creat Clearance w eGFR POC Glucometer > 400 258 Random Glucose Calcium Phosphorus Magnesium Total Bilirubin AST ALT Alkaline Phosphatase Total Protein Albumin Ethylene Glycol 09/08/17 09/08/17 09/08/17 08:10 11:04 17:10 WBC RBC Hgb Hct MCV MCH MCHC RDW Plt Count MPV Neutrophils % Lymphocytes % Monocytes % Eosinophils % Basophils % Sodium 147 H Potassium 3.3 L Chloride 111 H Carbon Dioxide 23 Anion Gap 13 BUN 8 Creatinine 0.6 Creat Clearance w eGFR > 60 POC Glucometer 299 218 Random Glucose 201 H Calcium 7.7 L Phosphorus 1.0 L* Magnesium 2.2 Total Bilirubin 0.5 D AST 402 H ALT 135 H Alkaline Phosphatase 299 H Total Protein 5.4 L Albumin 2.4 L Ethylene Glycol Active Medications Generic Name Dose Route Start Last Admin Trade Name Freq PRN Reason Stop Dose Admin Acetaminophen 650 mg 09/07/17 18:59 09/07/17 21:45 Tylenol - PO 650 mg Q6H PRN Administration BACK PAIN Acetaminophen 650 mg 09/08/17 12:18 09/09/17 02:33 Tylenol Oral Solution - PO 650 mg Q6H PRN Administration PAIN LEVEL 4 - 6 Albuterol Sulfate 1 amp 09/07/17 18:59 Ventolin 0.083% Nebulizer Soln - NEB Q6H PRN SHORT OF BREATH/WHEEZING Aspirin 325 mg 09/08/17 10:00 09/08/17 10:07 Ecotrin - PO 325 mg DAILY [facility] Administration Atorvastatin Calcium 80 mg 09/07/17 22:00 09/08/17 21:45 Lipitor - PO 80 mg HS [facility] Administration Heparin Sodium (Porcine) 5,000 unit 09/07/17 22:00 09/09/17 05:26 Heparin - SQ 5,000 unit TID [facility] Administration Potassium Chloride/Dextrose/Sod Cl 20 meq in 1,000 mls @ 83 mls/hr 09/07/17 18 :59 09/08/17 19:51 D5-1/2ns+20 Meq Kcl - IV Not Given ASDIR [facility] Insulin Aspart 1 vial 09/07/17 22:00 09/08/17 23:14 Novolog Vial Sliding Scale - SQ 5 units ACHS [facility] Administration Protocol Lidocaine 1 patch 09/08/17 20:30 09/08/17 23:16 Lidoderm Patch - TP 1 patch DAILY [facility] Administration Lidocaine/Aluminum/Magnesium/Simeth 5 ml 09/08/17 00:00 09/09/17 05:26 Magic Mouthwash *Sjr Formula* - MM 5 ml Q6HPO [facility] Administration Miscellaneous 1 each 09/08/17 22:00 09/09/17 04:28 Lidoderm Patch Removal MC Not Given DAILY@2200 [facility] Nicotine 21 mg 09/08/17 10:00 09/08/17 10:07 Nicoderm Patch - TD 21 mg DAILY [facility] Administration Ondansetron HCl 4 mg 09/07/17 18:59 09/09/17 02:22 Zofran Injection IVPUSH 4 mg Q6H PRN Administration NAUSEA AND/OR VOMITING Microbiology 09/05/17 16:35 Blood - Peripheral Venous Blood Culture - Preliminary NO GROWTH OBTAINED AFTER 72 HOURS, INCUBATION TO CONTINUE FOR 2 DAYS. 09/05/17 16:30 Blood - Peripheral Venous Blood Culture - Preliminary NO GROWTH OBTAINED AFTER 72 HOURS, INCUBATION TO CONTINUE FOR 2 DAYS. 09/05/17 17:25 Urine - Urine - Catheterized Urine Culture - Final NO GROWTH OBTAINED Head CT 09/05 - Findings: There is an evolving subacute infarct in the right MCA territory, involving the temporoparietal lobes, frontal lobe and insula, with decreased sulcal compression and new patchy gyriform hyperattenuation along the periphery of these infarct, most likely attributed to laminar necrosis. No compelling evidence of new acute transcortical infarction. There are no new mass effects. There is no midline shift or hydrocephalus. The calvarium is intact. The visualized paranasal sinuses and mastoid air cells are clear. Renal U/S 09/06 - Impression: 1. No hydronephrosis. 2. Borderline mildly enlarged kidneys with borderline echogenic cortices. These findings are equivocal for diabetic nephropathy. ASSESSMENT/PLAN: 47 yo woman w/ pmh of IDDM, gastroparesis, R CVA, currently admitted after being found unconscious by neighbor, determined to be in severe DKA. AG closed, off insulin drip, transferred out of ICU. Afebrile, hemo stable, improving clinically. Still with multiple electrolyte abnormalities. #DKA - Hyperglycemic up to 400s overnight. resolved with oral hydration. Insulin drip d/c'ed. UA w/ 3+ glucose, trace ketones today. - Levemir increased from 8u to 10u; may require further increase - Insulin SS; BGM Q4h - Started on thick liquids - zofran for N/V - Monitor for hypoglycemia - Hold insulin pump at this time - Encourage aggressive oral hydration; refusing IV fluids #Hypokalemia - 3.3 again today; ordered for Kphos PO x1 -Refusing IV fluids - PO Kphos prn - Serial BMPs - Replete as needed #hypophosphatemia - 2.0 today - Kphos PO x1 today - Monitor phos; replete as needed #Elevated Alk phos - 277 today; mild transaminitis - Trend LFTs - Consider abdominal imaging if needed #AMS - secondary to DKA and hypothermia; MS improved significantly, at baseline - Trend neuro status #Chronic back pain - Spoke with outpt pain management Dr. Jules. Pt receives Percocet 10/325 QID, MS contin 60mg BID - started on percocet QID - PO tylenol #Dysphagia - Oral care with magic mouthwash - S+S ordered given dysphagia; switched to full liquid diet per patient request #Oral pain/tooth abscess - no abscess noted on exam; pt states she needs bridge revision after trauma to oral cavity during fall - f/u w/ oral surgeon, Dr. Foley as outpt - scheduled appt w/ dentist, Dr. De La Vega, on October 24 - Pt was previously on clindamycin for suspected dental abscess with possible extraction; however not medically cleared given prior CVA in Jun for 3 months; will hold off on abx for now #Nicotine dependence - Nicoderm patch #Prior CVA - Repeat CT w/ no acute changes; prior CVA in R MCA - Monitor MS - c/w ASA/statin FEN: F: Pt refusing IV fluids. PO hydration E: Monitor lytes; correct hypok, hypophos N: Full liquid diabetic diet PPX - HSQ D/c home when electrolyte abs stabilize Plan discussed with attending, Dr. Doug Camacho, PGY1 Visit type - Emergency Visit Emergency Visit: Yes ED Registration Date: 09/05/17 Care time: The patient presented to the Emergency Department on the above date and was hospitalized for further evaluation of their emergent condition. - New Patient This patient is new to me today: No - Critical Care Critical Care patient: No
[2017-09-09] MEDS: INSULIN SLIDING SCALE (NOVOLOG) 1 VIAL SQ SCH ×4 (06:11→22:18)
[2017-09-09 07:27] LABS: HEMATOCRIT 33.8 % (32.4-45.2); HEMOGLOBIN 11.4 GM/dL (10.7-15.3); MCHC 33.8 g/dl (32.0-36.0); MEAN CELL VOLUME 88.8 fl (80-96); PLATELET COUNT 266 K/MM3 (134-434); RBC 3.81 M/mm3 (3.60-5.2); RDW 14.9 % (11.6-15.6); WHITE BLOOD COUNT 10.4 K/mm3 (4.0-10.0)
[2017-09-09 08:05] LABS: ALBUMIN 2.6 g/dl (3.4-5.0); ANION GAP 14 (8-16); BILIRUBIN,TOTAL 0.4 mg/dL (0.2-1.0); BLOOD UREA NITROGEN 11 mg/dL (7-18); CALCIUM 7.4 mg/dL (8.5-10.1); CHLORIDE 108 mmol/L (98-107); CO2 22 mmol/L (21-32); CREATININE 0.7 mg/dL (0.55-1.02); MAGNESIUM 1.9 mg/dL (1.8-2.4); POTASSIUM 3.3 mmol/L (3.5-5.1); SGOT/AST 98 U/L (15-37); SGPT/ALT 103 U/L (12-78); SODIUM 144 mmol/L (136-145); TOT PROT 5.4 g/dl (6.4-8.2)
[2017-09-09 08:06] LABS: ALK PHOS 277 U/L (45-117)
[2017-09-09 08:28] LABS: GLUCOSE,RANDOM 345 mg/dL (74-106)
[2017-09-09] MEDS: ASPIRIN 325 MG ENTERIC COATED TABLET (FP) PO SCH (09:48)
[2017-09-09] MEDS: NICOTINE 21 MG/24 HOURS TOPICAL PATCH TD SCH (09:48)
[2017-09-09] MEDS: LIDOCAINE 5% TOPICAL PATCH TP SCH (09:48)
[2017-09-09] MEDS ORDERED: INSULIN (NOVOLOG) ASPART 100 UNITS/ML 10ML VIAL ONE (11:20)
--- NOTE | 2017-09-09 13:26 | PN ---
Progress Note, [employer] - Note Progress Note: Selected Entries 09/08/17 09/08/17 09/08/17 06:00 08:42 10:11 Breakfast 50% Lunch Supper Temperature 98.2 F 99.5 F 09/08/17 09/08/17 09/08/17 13:45 13:52 18:00 Breakfast Lunch 50% Supper Temperature 98.7 F 98.7 F 09/08/17 09/08/17 09/08/17 18:05 21:14 21:25 Breakfast Lunch Supper 75% 75% Temperature 98.7 F 09/09/17 09/09/17 09/09/17 02:00 06:00 10:00 Breakfast Lunch Supper Temperature 100.0 F H 99.1 F 98.3 F 09/09/17 11:28 Breakfast 25% Lunch Supper Temperature Pt now refusing pureed diet. She wants soft food. REC: Trial of soft food/thin liquids. Dysphagia not suspected. Oral/dental condition adveresly affects efficiency of mastication.
--- NOTE | 2017-09-09 13:54 | PN ---
Teaching Attending Note Name of Resident: Roberto Camacho ATTENDING PHYSICIAN STATEMENT I saw and evaluated the patient. I reviewed the resident's note and discussed the case with the resident. I agree with the resident's findings and plan as documented. SUBJECTIVE: Patient complains of dysuria and chronic pain. OBJECTIVE: Vital Signs Period Temp Pulse Resp BP Sys/Rapp Pulse Ox Last 24 Hr 98.3 F-100.0 F 68-74 19-20 118-132/57-75 96-96 HEART: S1S2, RRR LUNGS: Clear ABDOMEN: Soft, non-tender, non-distended, normal BS EXTREMITIES: No edema Laboratory Results - last 24 hr 09/05/17 09/08/17 09/08/17 13:15 17:10 22:52 WBC RBC Hgb Hct MCV MCH MCHC RDW Plt Count MPV Sodium Potassium Chloride Carbon Dioxide Anion Gap BUN Creatinine Creat Clearance w eGFR POC Glucometer 218 406 Random Glucose Calcium Phosphorus Magnesium Total Bilirubin AST ALT Alkaline Phosphatase Total Protein Albumin Ethylene Glycol None detected 09/09/17 09/09/17 09/09/17 06:06 06:30 06:30 WBC 10.4 H RBC 3.81 Hgb 11.4 D Hct 33.8 MCV 88.8 MCH 30.0 MCHC 33.8 RDW 14.9 Plt Count 266 MPV 8.0 Sodium 144 Potassium 3.3 L Chloride 108 H Carbon Dioxide 22 Anion Gap 14 BUN 11 Creatinine 0.7 Creat Clearance w eGFR > 60 POC Glucometer 386 Random Glucose 345 H* Calcium 7.4 L Phosphorus 2.0 L Magnesium 1.9 Total Bilirubin 0.4 AST 98 H ALT 103 H Alkaline Phosphatase 277 H Total Protein 5.4 L Albumin 2.6 L Ethylene Glycol 09/09/17 11:01 WBC RBC Hgb Hct MCV MCH MCHC RDW Plt Count MPV Sodium Potassium Chloride Carbon Dioxide Anion Gap BUN Creatinine Creat Clearance w eGFR POC Glucometer 270 Random Glucose Calcium Phosphorus Magnesium Total Bilirubin AST ALT Alkaline Phosphatase Total Protein Albumin Ethylene Glycol Current Medications Generic Name Dose Route Start Last Admin Trade Name Freq PRN Reason Stop Dose Admin Acetaminophen 650 mg 09/07/17 18:59 09/07/17 21:45 Tylenol - PO 650 mg Q6H PRN Administration BACK PAIN Acetaminophen 650 mg 09/08/17 12:18 09/09/17 02:33 Tylenol Oral Solution - PO 650 mg Q6H PRN Administration PAIN LEVEL 4 - 6 Albuterol Sulfate 1 amp 09/07/17 18:59 Ventolin 0.083% Nebulizer Soln - NEB Q6H PRN SHORT OF BREATH/WHEEZING Aspirin 325 mg 09/08/17 10:00 09/09/17 09:48 Ecotrin - PO 325 mg DAILY [facility] Administration Atorvastatin Calcium 80 mg 09/07/17 22:00 09/08/17 21:45 Lipitor - PO 80 mg HS [facility] Administration Heparin Sodium (Porcine) 5,000 unit 09/07/17 22:00 09/09/17 05:26 Heparin - SQ 5,000 unit TID [facility] Administration Potassium Chloride/Dextrose/Sod Cl 20 meq in 1,000 mls @ 83 mls/hr 09/07/17 18 :59 09/08/17 19:51 D5-1/2ns+20 Meq Kcl - IV Not Given ASDIR [facility] Insulin Aspart 1 vial 09/07/17 22:00 09/09/17 12:33 Novolog Vial Sliding Scale - SQ 3 units ACHS [facility] Administration Protocol Insulin Detemir 8 units 09/10/17 07:00 Levemir Vial SQ AM [facility] Lidocaine 1 patch 09/08/17 20:30 09/09/17 09:48 Lidoderm Patch - TP 1 patch DAILY [facility] Administration Lidocaine/Aluminum/Magnesium/Simeth 5 ml 09/08/17 00:00 09/09/17 12:33 Magic Mouthwash *Sjr Formula* - MM 5 ml Q6HPO [facility] Administration Miscellaneous 1 each 09/08/17 22:00 09/09/17 04:28 Lidoderm Patch Removal MC Not Given DAILY@2200 [facility] Nicotine 21 mg 09/08/17 10:00 09/09/17 09:48 Nicoderm Patch - TD 21 mg DAILY [facility] Administration Ondansetron HCl 4 mg 09/07/17 18:59 09/09/17 09:48 Zofran Injection IVPUSH 4 mg Q6H PRN Administration NAUSEA AND/OR VOMITING Oxycodone/Acetaminophen 1 combo 09/09/17 13:27 Percocet 5/325 - PO 09/09/17 13:28 QID ONE ASSESSMENT AND PLAN: This is a 47 year old woman with a history of type 1 DM, diabetic gastroparesis , chronic pain, CVA with left hemiparesis who presented to the ER after being found on the floor. 1. DKA - Resolved. 2. Uncontrolled type 1 DM - Increase Levemir - Continue Novolog sliding scale 3. Acute metabolic encephalopathy secondary DKA, electrolyte abnormalities, hypothermia - Resolved 4. Hypothermia - Resolved 5. Acute kidney injury secondary to dehydration - Resolved 6. Hypernatremia - Resolved 7. Hypophosphatemia - Continue to supplement phosphorus 8. Hypokalemia - Resolved 9. Left hemiparesis secondary to recent CVA - Continue aspirin, Lipitor 10. Chronic pain - Continue Lidoderm, Percocet
--- NOTE | 2017-09-09 14:03 | PN ---
Progress Note, Physician History of Present Illness: stable doing well no complaints feels slightly weak on the left side - Current Medication List Current Medications: Active Medications Acetaminophen (Tylenol -) 650 mg PO Q6H PRN PRN Reason: BACK PAIN Last Admin: 09/07/17 21:45 Dose: 650 mg Acetaminophen (Tylenol Oral Solution -) 650 mg PO Q6H PRN PRN Reason: PAIN LEVEL 4 - 6 Last Admin: 09/09/17 02:33 Dose: 650 mg Albuterol Sulfate (Ventolin 0.083% Nebulizer Soln -) 1 amp NEB Q6H PRN PRN Reason: SHORT OF BREATH/WHEEZING Aspirin (Ecotrin -) 325 mg PO DAILY [facility] Last Admin: 09/09/17 09:48 Dose: 325 mg Atorvastatin Calcium (Lipitor -) 80 mg PO HS [facility] Last Admin: 09/08/17 21:45 Dose: 80 mg Heparin Sodium (Porcine) (Heparin -) 5,000 unit SQ TID [facility] Last Admin: 09/09/17 05:26 Dose: 5,000 unit Potassium Chloride/Dextrose/Sod Cl (D5-1/2ns+20 Meq Kcl -) 20 meq in 1,000 mls @ 83 mls/hr IV ASDIR [facility] Last Admin: 09/08/17 19:51 Dose: Not Given Insulin Aspart (Novolog Vial Sliding Scale -) 1 vial SQ ACHS [facility] PRN Reason: Protocol Last Admin: 09/09/17 12:33 Dose: 3 units Insulin Detemir (Levemir Vial) 8 units SQ AM [facility] Lidocaine (Lidoderm Patch -) 1 patch TP DAILY [facility] Last Admin: 09/09/17 09:48 Dose: 1 patch Lidocaine/Aluminum/Magnesium/Simeth (Magic Mouthwash *Sjr Formula* -) 5 ml MM Q6HPO [facility] Last Admin: 09/09/17 12:33 Dose: 5 ml Miscellaneous (Lidoderm Patch Removal) 1 each MC DAILY@2200 [facility] Last Admin: 09/09/17 04:28 Dose: Not Given Nicotine (Nicoderm Patch -) 21 mg TD DAILY [facility] Last Admin: 09/09/17 09:48 Dose: 21 mg Ondansetron HCl (Zofran Injection) 4 mg IVPUSH Q6H PRN PRN Reason: NAUSEA AND/OR VOMITING Last Admin: 03/13/18 09:48 Dose: 4 mg Oxycodone/Acetaminophen (Percocet 5/325 -) 1 combo PO QID ONE Stop: 09/09/17 13:28 - Objective Vital Signs: Vital Signs Temperature 98.3 F 09/09/17 10:00 Pulse Rate 72 09/09/17 10:00 Respiratory Rate 19 09/09/17 10:00 Blood Pressure 118/64 09/09/17 10:00 O2 Sat by Pulse Oximetry (%) 96 09/09/17 09:00 Constitutional: Yes: No Distress, Calm Cardiovascular: Yes: Regular Rate and Rhythm Respiratory: Yes: Regular, CTA Bilaterally Gastrointestinal: Yes: Normal Bowel Sounds, Soft Musculoskeletal: Yes: WNL Extremities: Yes: WNL Neurological: Yes: Alert, Oriented Psychiatric: Yes: Alert, Oriented Labs: CBC, BMP 09/09/17 06:30 09/09/17 06:30 Assessment/Plan Problem List - Problems (1) Diabetic keto-acidosis Code(s): E13.10 - OTH DIABETES MELLITUS WITH KETOACIDOSIS WITHOUT COMA Qualifiers: Diabetes mellitus type: due to underlying condition Diabetes mellitus complication detail: with coma Qualified Code(s): E08.11 - Diabetes mellitus due to underlying condition with ketoacidosis with coma (2) Renal failure (ARF), acute on chronic Code(s): N17.9 - ACUTE KIDNEY FAILURE, UNSPECIFIED; N18.9 - CHRONIC KIDNEY DISEASE, UNSPECIFIED Qualifiers: Acute renal failure type: unspecified Chronic kidney disease stage: unspecified stage Qualified Code(s): N17.9 - Acute kidney failure, unspecified ; N18.9 - Chronic kidney disease, unspecified; N18.9 - Chronic kidney disease, unspecified (3) Gastroparesis Code(s): K31.84 - GASTROPARESIS (4) Chronic pain Code(s): G89.29 - OTHER CHRONIC PAIN Qualifiers: Chronic pain type: chronic pain syndrome Qualified Code(s): G89.4 - Chronic pain syndrome after looking at the patient and the history at the moment i ahve low suspicion for a infectious focus. patient is very lethargic and her her neurological exam is normal her urine and her imaging studies are nor showing any infectious process plan continue current mgmt wbc trending down monitor sugars rest as per primary
[2017-09-09] MEDS: oxyCODONE HCL 5 MG TABLET PO PRN ×2 (14:57→21:11)
--- NOTE | 2017-09-09 15:10 | PN ---
Progress Note (short form) - Note Progress Note: Feels OK. Some urinary / lower abdominal symptoms. No CP or SOB. Intake & Output 09/06/17 09/07/17 09/08/17 09/09/17 22:59 23:59 23:59 23:59 Intake Total 3559 880 Output Total Balance 3559 880 Weight Last Vital Signs Temp Pulse Resp BP Pulse Ox 99 F 77 18 126/68 96 09/09/17 15:11 09/09/17 15:11 09/09/17 15:11 09/09/17 15:11 09/09/17 09:00 Active Medications Acetaminophen (Tylenol Oral Solution -) 650 mg PO Q6H PRN PRN Reason: PAIN LEVEL 4 - 6 Last Admin: 09/09/17 02:33 Dose: 650 mg Acetaminophen (Tylenol -) 325 mg PO Q6H PRN PRN Reason: PAIN LEVEL 7 - 10 Last Admin: 09/09/17 14:58 Dose: 325 mg Albuterol Sulfate (Ventolin 0.083% Nebulizer Soln -) 1 amp NEB Q6H PRN PRN Reason: SHORT OF BREATH/WHEEZING Aspirin (Ecotrin -) 325 mg PO DAILY [facility] Last Admin: 09/09/17 09:48 Dose: 325 mg Atorvastatin Calcium (Lipitor -) 80 mg PO HS [facility] Last Admin: 09/08/17 21:45 Dose: 80 mg Heparin Sodium (Porcine) (Heparin -) 5,000 unit SQ TID [facility] Last Admin: 09/09/17 14:58 Dose: 5,000 unit Potassium Chloride/Dextrose/Sod Cl (D5-1/2ns+20 Meq Kcl -) 20 meq in 1,000 mls @ 83 mls/hr IV ASDIR [facility] Last Admin: 09/08/17 19:51 Dose: Not Given Insulin Aspart (Novolog Vial Sliding Scale -) 1 vial SQ ACHS [facility] PRN Reason: Protocol Last Admin: 09/09/17 12:33 Dose: 3 units Insulin Detemir (Levemir Vial) 10 units SQ AM [facility] Lidocaine (Lidoderm Patch -) 1 patch TP DAILY [facility] Last Admin: 09/09/17 09:48 Dose: 1 patch Lidocaine/Aluminum/Magnesium/Simeth (Magic Mouthwash *Sjr Formula* -) 5 ml MM Q6HPO [facility] Last Admin: 09/09/17 12:33 Dose: 5 ml Miscellaneous (Lidoderm Patch Removal) 1 each MC DAILY@2200 [facility] Last Admin: 09/09/17 04:28 Dose: Not Given Nicotine (Nicoderm Patch -) 21 mg TD DAILY [facility] Last Admin: 09/09/17 09:48 Dose: 21 mg Ondansetron HCl (Zofran Injection) 4 mg IVPUSH Q6H PRN PRN Reason: NAUSEA AND/OR VOMITING Last Admin: 09/09/17 09:48 Dose: 4 mg Oxycodone HCl (Roxicodone -) 5 mg PO Q6H PRN PRN Reason: PAIN LEVEL 7 - 10 Last Admin: 09/09/17 14:57 Dose: 5 mg General: NAD Neuro:stable deficit Pulm: CTA CV: S1, S2 RRR Abd: Soft, (+) BS Ext:+2 pulses, stable edema Laboratory Results - last 24 hr 09/05/17 09/08/17 09/08/17 13:15 17:10 22:52 WBC RBC Hgb Hct MCV MCH MCHC RDW Plt Count MPV Sodium Potassium Chloride Carbon Dioxide Anion Gap BUN Creatinine Creat Clearance w eGFR POC Glucometer 218 406 Random Glucose Calcium Phosphorus Magnesium Total Bilirubin AST ALT Alkaline Phosphatase Total Protein Albumin Ethylene Glycol None detected 09/09/17 09/09/17 09/09/17 06:06 06:30 06:30 WBC 10.4 H RBC 3.81 Hgb 11.4 D Hct 33.8 MCV 88.8 MCH 30.0 MCHC 33.8 RDW 14.9 Plt Count 266 MPV 8.0 Sodium 144 Potassium 3.3 L Chloride 108 H Carbon Dioxide 22 Anion Gap 14 BUN 11 Creatinine 0.7 Creat Clearance w eGFR > 60 POC Glucometer 386 Random Glucose 345 H* Calcium 7.4 L Phosphorus 2.0 L Magnesium 1.9 Total Bilirubin 0.4 AST 98 H ALT 103 H Alkaline Phosphatase 277 H Total Protein 5.4 L Albumin 2.6 L Ethylene Glycol 09/09/17 11:01 WBC RBC Hgb Hct MCV MCH MCHC RDW Plt Count MPV Sodium Potassium Chloride Carbon Dioxide Anion Gap BUN Creatinine Creat Clearance w eGFR POC Glucometer 270 Random Glucose Calcium Phosphorus Magnesium Total Bilirubin AST ALT Alkaline Phosphatase Total Protein Albumin Ethylene Glycol Problem List - Problems (1) Diabetic keto-acidosis Code(s): E13.10 - OTH DIABETES MELLITUS WITH KETOACIDOSIS WITHOUT COMA Qualifiers: Diabetes mellitus type: due to underlying condition Diabetes mellitus complication detail: with coma Qualified Code(s): E08.11 - Diabetes mellitus due to underlying condition with ketoacidosis with coma (2) Renal failure (ARF), acute on chronic Code(s): N17.9 - ACUTE KIDNEY FAILURE, UNSPECIFIED; N18.9 - CHRONIC KIDNEY DISEASE, UNSPECIFIED Qualifiers: Acute renal failure type: unspecified Chronic kidney disease stage: unspecified stage Qualified Code(s): N17.9 - Acute kidney failure, unspecified ; N18.9 - Chronic kidney disease, unspecified; N18.9 - Chronic kidney disease, unspecified (3) Gastroparesis Code(s): K31.84 - GASTROPARESIS (4) Chronic pain Code(s): G89.29 - OTHER CHRONIC PAIN Qualifiers: Chronic pain type: chronic pain syndrome Qualified Code(s): G89.4 - Chronic pain syndrome Assessment/Plan Glycemic control No smoking Replete lytes VTE prophylaxis Dr Otero
[2017-09-09 17:31] LABS: URINE APPEARANCE CLEAR; URINE BILIRUBIN NEGATIVE (NEGATIVE); URINE BLOOD NEGATIVE (NEGATIVE); URINE COLOR LTYELLOW; URINE GLUCOSE (UA) 3+ (NEGATIVE); URINE KETONE TRACE (NEGATIVE); URINE NITRITE NEGATIVE (NEGATIVE); URINE PROTEIN NEGATIVE (NEGATIVE)
[2017-09-09 17:34] LABS: URINE LEUK ESTERASE 1+ (NEGATIVE)
[2017-09-09 17:36] LABS: EPI CELLS RARE /HPF (FEW); URINE BACTERIA RARE /hpf (NONE SEEN)
[2017-09-09] MEDS: D5-1/2NS+20 MEQ KCL - 20 MEQ/1,000 ML INFUS.BAG IV SCH (18:40)
[2017-09-09] MEDS ORDERED: NAPH,MB-DB/K PH,MBDB POWDER PACKET PO ONE (19:45)
[2017-09-09] MEDS: ATORVASTATIN CA 80 MG TABLET (FP) PO SCH (22:18)
[2017-09-10 00:09] LABS: ANION GAP 13 (8-16); BLOOD UREA NITROGEN 13 mg/dL (7-18); CALCIUM 8.3 mg/dL (8.5-10.1); CHLORIDE 107 mmol/L (98-107); CO2 23 mmol/L (21-32); CREATININE 0.8 mg/dL (0.55-1.02); POTASSIUM 3.8 mmol/L (3.5-5.1); SODIUM 143 mmol/L (136-145)
[2017-09-10 00:13] LABS: GLUCOSE,RANDOM 374 mg/dL (74-106)
[2017-09-10] MEDS: oxyCODONE HCL 5 MG TABLET PO PRN ×3 (02:58→17:10)
[2017-09-10] MEDS: ACETAMINOPHEN 325 MG TABLET (FP) PO PRN ×3 (02:59→17:13)
--- NOTE | 2017-09-10 06:09 | PN ---
Physical Exam: SUBJECTIVE: Patient seen and examined -No major overnight events. Pain better controlled on percocet regimen per outpt pain dr. Jules. Still with mild dysuria, improving, UA unremarkable for UTI. likely secondary to perez. No CP, cough, SOB, ab pain. Occasional chills overnight. Still w/ chronic back pain - HypoK resolved to 3.8 in PM. BGMs still elevated, consistently in 300-400s. Started on oxycodone PM yesterday for chronic pain control. urine culture pending. - [employer] Dr Maharaj office called, basal insulin rate 1.5 units/hr w / pump. Levemir increased to 15u/day OBJECTIVE: Vital Signs Intake & Output 09/07/17 09/08/17 09/09/17 09/10/17 23:59 23:59 23:59 23:59 Intake Total 3559 1480 Output Total Balance 3559 1480 Weight Period Temp Pulse Resp BP Sys/Rapp Pulse Ox Last 24 Hr 98.2 F-99.6 F 72-87 18-20 118-136/64-85 96-100 GENERAL: A&Ox3. NAD. HEAD: Normal with no signs of trauma. EYES: PERRL, extraocular movements intact, sclera anicteric, conjunctiva clear. No ptosis. ENT: Poor dentition. Ears normal, nares patent. No erythema or abscesses noted on exam. NECK: Trachea midline, full range of motion, supple. LUNGS: Breath sounds equal, clear to auscultation bilaterally, no wheezes, no crackles, no accessory muscle use. HEART: Regular rate and rhythm, S1. Prominent S2. No murmurs, rub or gallop. ABDOMEN: Mild lower abdominal TTP. otherwise, Soft, nondistended, normoactive bowel sounds, no guarding, no rebound, no hepatosplenomegaly, no masses. BL lower back pain on palpation. EXTREMITIES: 2+ pulses, warm, well-perfused, no edema. NEUROLOGICAL: Cranial nerves II through XII grossly intact. 5/5 strength in R UE /LE with preserved sensation. 0/5 strength in distal LUE, distal/proximal LLE PSYCH: Normal mood, normal affect. Laboratory Results - last 24 hr CBC, BMP 09/10/17 06:00 09/10/17 06:00 09/09/17 06:30 09/09/17 23:30 09/05/17 09/08/17 09/09/17 13:15 22:52 06:06 WBC RBC Hgb Hct MCV MCH MCHC RDW Plt Count MPV Sodium Potassium Chloride Carbon Dioxide Anion Gap BUN Creatinine Creat Clearance w eGFR POC Glucometer 406 386 Random Glucose Calcium Phosphorus Magnesium Total Bilirubin AST ALT Alkaline Phosphatase Total Protein Albumin Urine Color Urine Appearance Urine pH Ur Specific [place] Urine Protein Urine Glucose (UA) Urine Ketones Urine Blood Urine Nitrite Urine Bilirubin Urine Urobilinogen Ur Leukocyte Esterase Urine WBC (Auto) Urine RBC (Auto) Ur Epithelial Cells Urine Bacteria Ethylene Glycol None detected 09/09/17 09/09/17 09/09/17 06:30 06:30 11:01 WBC 10.4 H RBC 3.81 Hgb 11.4 D Hct 33.8 MCV 88.8 MCH 30.0 MCHC 33.8 RDW 14.9 Plt Count 266 MPV 8.0 Sodium 144 Potassium 3.3 L Chloride 108 H Carbon Dioxide 22 Anion Gap 14 BUN 11 Creatinine 0.7 Creat Clearance w eGFR > 60 POC Glucometer 270 Random Glucose 345 H* Calcium 7.4 L Phosphorus 2.0 L Magnesium 1.9 Total Bilirubin 0.4 AST 98 H ALT 103 H Alkaline Phosphatase 277 H Total Protein 5.4 L Albumin 2.6 L Urine Color Urine Appearance Urine pH Ur Specific [place] Urine Protein Urine Glucose (UA) Urine Ketones Urine Blood Urine Nitrite Urine Bilirubin Urine Urobilinogen Ur Leukocyte Esterase Urine WBC (Auto) Urine RBC (Auto) Ur Epithelial Cells Urine Bacteria Ethylene Glycol 09/09/17 09/09/17 09/09/17 16:45 17:36 23:30 WBC RBC Hgb Hct MCV MCH MCHC RDW Plt Count MPV Sodium 143 Potassium 3.8 Chloride 107 Carbon Dioxide 23 Anion Gap 13 BUN 13 Creatinine 0.8 Creat Clearance w eGFR POC Glucometer 376 Random Glucose 374 H* Calcium 8.3 L Phosphorus Magnesium Total Bilirubin AST ALT Alkaline Phosphatase Total Protein Albumin Urine Color Ltyellow Urine Appearance Clear Urine pH 7.0 D Ur Specific [place] 1.010 Urine Protein Negative Urine Glucose (UA) 3+ H Urine Ketones Trace H Urine Blood Negative Urine Nitrite Negative Urine Bilirubin Negative Urine Urobilinogen 2.0 H Ur Leukocyte Esterase 1+ H Urine WBC (Auto) 1 Urine RBC (Auto) <1 Ur Epithelial Cells Rare Urine Bacteria Rare Ethylene Glycol Active Medications Generic Name Dose Route Start Last Admin Trade Name Freq PRN Reason Stop Dose Admin Acetaminophen 650 mg 09/08/17 12:18 09/09/17 02:33 Tylenol Oral Solution - PO 650 mg Q6H PRN Administration PAIN LEVEL 4 - 6 Acetaminophen 325 mg 09/09/17 14:37 09/10/17 02:59 Tylenol - PO 325 mg Q6H PRN Administration PAIN LEVEL 7 - 10 Albuterol Sulfate 1 amp 09/07/17 18:59 Ventolin 0.083% Nebulizer Soln - NEB Q6H PRN SHORT OF BREATH/WHEEZING Aspirin 325 mg 09/08/17 10:00 09/09/17 09:48 Ecotrin - PO 325 mg DAILY [facility] Administration Atorvastatin Calcium 80 mg 09/07/17 22:00 09/09/17 22:18 Lipitor - PO 80 mg HS [facility] Administration Heparin Sodium (Porcine) 5,000 unit 09/07/17 22:00 09/09/17 22:15 Heparin - SQ 5,000 unit TID [facility] Administration Potassium Chloride/Dextrose/Sod Cl 20 meq in 1,000 mls @ 83 mls/hr 09/07/17 18 :59 09/09/17 18:40 D5-1/2ns+20 Meq Kcl - IV Not Given ASDIR [facility] Insulin Aspart 1 vial 09/07/17 22:00 09/09/17 22:18 Novolog Vial Sliding Scale - SQ 5 units ACHS [facility] Administration Protocol Insulin Detemir 10 units 09/10/17 07:00 Levemir Vial SQ AM [facility] Lidocaine 1 patch 09/08/17 20:30 09/09/17 09:48 Lidoderm Patch - TP 1 patch DAILY [facility] Administration Lidocaine/Aluminum/Magnesium/Simeth 5 ml 09/08/17 00:00 09/09/17 23:42 Magic Mouthwash *Sjr Formula* - MM 5 ml Q6HPO [facility] Administration Miscellaneous 1 each 09/08/17 22:00 09/09/17 22:18 Lidoderm Patch Removal MC Not Given DAILY@2200 [facility] Nicotine 21 mg 09/08/17 10:00 09/09/17 09:48 Nicoderm Patch - TD 21 mg DAILY [facility] Administration Ondansetron HCl 4 mg 09/07/17 18:59 09/09/17 20:08 Zofran Injection IVPUSH 4 mg Q6H PRN Administration NAUSEA AND/OR VOMITING Oxycodone HCl 5 mg 09/09/17 14:37 09/10/17 02:58 Roxicodone - PO 5 mg Q6H PRN Administration PAIN LEVEL 7 - 10 Microbiology 09/05/17 16:35 Blood - Peripheral Venous Blood Culture - Preliminary NO GROWTH OBTAINED AFTER 96 HOURS, INCUBATION TO CONTINUE FOR 1 DAYS. 09/05/17 16:30 Blood - Peripheral Venous Blood Culture - Preliminary NO GROWTH OBTAINED AFTER 96 HOURS, INCUBATION TO CONTINUE FOR 1 DAYS. 09/05/17 17:25 Urine - Urine - Catheterized Urine Culture - Final NO GROWTH OBTAINED Head CT 09/05 - Findings: There is an evolving subacute infarct in the right MCA territory, involving the temporoparietal lobes, frontal lobe and insula, with decreased sulcal compression and new patchy gyriform hyperattenuation along the periphery of these infarct, most likely attributed to laminar necrosis. No compelling evidence of new acute transcortical infarction. There are no new mass effects. There is no midline shift or hydrocephalus. The calvarium is intact. The visualized paranasal sinuses and mastoid air cells are clear. Renal U/S 09/06 - Impression: 1. No hydronephrosis. 2. Borderline mildly enlarged kidneys with borderline echogenic cortices. These findings are equivocal for diabetic nephropathy. ASSESSMENT/PLAN: 47 yo woman w/ pmh of IDDM, gastroparesis, R CVA, currently admitted after being found unconscious by neighbor, determined to be in severe DKA. AG closed, off insulin drip, transferred out of ICU. afebrile, hemo stable, no eletrolyte abs. Still w/ hyperglycemia./ plan for d/c tomorrow. #DKA - Hyperglycemic again overnight to 300-400s. UA w/ 3+ glucose, trace ketones - Levemir increased to 15 u - Insulin SS; BGM Q4h - Started on regular diet; tolerating well - zofran SL for N/V - Monitor for hypoglycemia - Hold insulin pump at this time - Encourage aggressive oral hydration; refusing IV fluids - Plan for d/c w/ pump once battery replaced #Hypokalemia - 3.8 today; resolved - Serial BMPs - Replete as needed #hypophosphatemia - 3.1 today; resovled - Monitor phos; replete as needed #Elevated Alk phos - 218 today; mild transaminitis - Trend LFTs; improving #AMS - secondary to DKA and hypothermia; MS improved significantly, at baseline - Trend neuro status #Chronic back pain - better controlled on percocet QID - Spoke with outpt pain management Dr. Jules yesterday. Pt receives Percocet 10/ 325 QID, MS contin 60mg BID - percocet QID - PO tylenol #Dysphagia - Oral care with magic mouthwash - S+S ok'd regular diet; tolerating well #Oral pain/tooth abscess - no abscess noted on exam; pt states she needs bridge revision after trauma to oral cavity during fall - f/u w/ oral surgeon, Dr. Foley as outpt - scheduled appt w/ dentist, Dr. De La Vega, on October 24 - Pt was previously on clindamycin for suspected dental abscess with possible extraction; however not medically cleared given prior CVA in Jun for 3 months; will hold off on abx for now #Nicotine dependence - Nicoderm patch #Prior CVA - Repeat CT w/ no acute changes; prior CVA in R MCA - Monitor MS - c/w ASA/statin FEN: F: Pt refusing IV fluids. PO hydration E: Monitor lytes N: Diabetic diet PPX - HSQ D/c home tomorrow Plan discussed with attending, Dr. Doug Camacho, PGY1 Visit type - Emergency Visit Emergency Visit: Yes ED Registration Date: 09/05/17 Care time: The patient presented to the Emergency Department on the above date and was hospitalized for further evaluation of their emergent condition. - New Patient This patient is new to me today: No - Critical Care Critical Care patient: No
[2017-09-10] MEDS: HEPARIN NA (PORCINE) 5,000 UNITS/ML 1ML VIAL SQ SCH ×3 (06:18→21:49)
[2017-09-10] MEDS: MAG HYDROX/ALH/SMC/DPHA/LIDO 240 ML MOUTHWASH MM SCH ×3 (06:19→19:10)
[2017-09-10] MEDS: INSULIN SLIDING SCALE (NOVOLOG) 1 VIAL SQ SCH ×4 (06:20→21:50)
[2017-09-10] MEDS ORDERED: INSULIN DETEMIR 100 UNITS/ML MDV SQ SCH ×2 (07:00)
[2017-09-10 07:48] LABS: ALBUMIN 2.3 g/dl (3.4-5.0); ANION GAP 14 (8-16); BILIRUBIN,TOTAL 0.5 mg/dL (0.2-1.0); BLOOD UREA NITROGEN 17 mg/dL (7-18); CALCIUM 7.8 mg/dL (8.5-10.1); CHLORIDE 104 mmol/L (98-107); CO2 21 mmol/L (21-32); CREATININE 0.7 mg/dL (0.55-1.02); MAGNESIUM 2.2 mg/dL (1.8-2.4); PHOSPHOROUS 3.1 mg/dL (2.5-4.9); POTASSIUM 3.9 mmol/L (3.5-5.1); SGOT/AST 70 U/L (15-37); SGPT/ALT 81 U/L (12-78); SODIUM 139 mmol/L (136-145); TOT PROT 5.2 g/dl (6.4-8.2)
[2017-09-10 07:55] LABS: ALK PHOS 218 U/L (45-117)
[2017-09-10 08:37] LABS: GLUCOSE,RANDOM 449 mg/dL (74-106)
[2017-09-10] MEDS ORDERED: PT OWN MED DRAWER 7, Y5N ONE (09:26)
[2017-09-10] MEDS: LIDOCAINE 5% TOPICAL PATCH TP SCH (09:33)
[2017-09-10] MEDS: ASPIRIN 325 MG ENTERIC COATED TABLET (FP) PO SCH (09:33)
[2017-09-10] MEDS: NICOTINE 21 MG/24 HOURS TOPICAL PATCH TD SCH (09:35)
[2017-09-10 11:26] LABS: BASO % 0.8 % (0-2.0); EOS % 1.2 % (0-4.5); HEMATOCRIT 30.9 % (32.4-45.2); HEMOGLOBIN 10.4 GM/dL (10.7-15.3); LYMPH % 27.9 % (8-40); MCH 30.2 pg (25.7-33.7); MCHC 33.5 g/dl (32.0-36.0); MEAN PLT VOLUME 8.6 fl (7.5-11.1); MONO % 4.2 % (3.8-10.2); NEUT % 65.9 % (42.8-82.8); PLATELET COUNT 260 K/MM3 (134-434); RBC 3.44 M/mm3 (3.60-5.2); RDW 15.2 % (11.6-15.6); WHITE BLOOD COUNT 10.2 K/mm3 (4.0-10.0)
[2017-09-10] MEDS ORDERED: INSULIN (NOVOLOG) ASPART 100 UNITS/ML 10ML VIAL ONE ×2 (11:58→17:33)
[2017-09-10] MEDS ORDERED: ONDANSETRON *ODT* 4 MG TABLET SL PRN (13:04)
[2017-09-10] MEDS ORDERED: INSULIN DETEMIR 100 UNITS/ML MDV SQ ONE ×3 (13:09→17:33)
[2017-09-10] MEDS: BACITRACIN 15 GM TUBE TOPICAL OINTMENT TP SCH (13:53)
--- NOTE | 2017-09-10 14:49 | PN ---
Progress Note, [employer]ER - Note Progress Note: Selected Entries 09/09/17 09/09/17 09/09/17 02:00 06:00 10:00 Breakfast Supper Temperature 100.0 F H 99.1 F 98.3 F 09/09/17 09/09/17 09/09/17 15:11 18:00 18:20 Breakfast Supper 75% Temperature 99 F 98.2 F 09/10/17 09/10/17 09/10/17 02:00 06:00 10:19 Breakfast 100% Supper Temperature 99.6 F 99.3 F 09/10/17 14:14 Breakfast Supper Temperature 98.6 F Now on reg diet/thin liquids with good tolerance. No further f/u indicated.
--- NOTE | 2017-09-10 14:52 | PN ---
Progress Note, Physician History of Present Illness: feels much better no complaints - Current Medication List Current Medications: Active Medications Acetaminophen (Tylenol Oral Solution -) 650 mg PO Q6H PRN PRN Reason: PAIN LEVEL 4 - 6 Last Admin: 09/09/17 02:33 Dose: 650 mg Acetaminophen (Tylenol -) 325 mg PO Q6H PRN PRN Reason: PAIN LEVEL 7 - 10 Last Admin: 09/10/17 09:34 Dose: 325 mg Albuterol Sulfate (Ventolin 0.083% Nebulizer Soln -) 1 amp NEB Q6H PRN PRN Reason: SHORT OF BREATH/WHEEZING Aspirin (Ecotrin -) 325 mg PO DAILY [facility] Last Admin: 09/10/17 09:33 Dose: 325 mg Atorvastatin Calcium (Lipitor -) 80 mg PO HS [facility] Last Admin: 09/09/17 22:18 Dose: 80 mg Bacitracin (Bacitracin -) 1 applic TP DAILY [facility] Last Admin: 09/10/17 13:53 Dose: 1 applic Heparin Sodium (Porcine) (Heparin -) 5,000 unit SQ TID [facility] Last Admin: 09/10/17 13:54 Dose: 5,000 unit Potassium Chloride/Dextrose/Sod Cl (D5-1/2ns+20 Meq Kcl -) 20 meq in 1,000 mls @ 83 mls/hr IV ASDIR [facility] Last Admin: 09/09/17 18:40 Dose: Not Given Insulin Aspart (Novolog Vial Sliding Scale -) 1 vial SQ ACHS [facility] PRN Reason: Protocol Last Admin: 09/10/17 12:17 Dose: 5 units Insulin Detemir (Levemir Vial) 15 units SQ AM [facility] Lidocaine (Lidoderm Patch -) 1 patch TP DAILY [facility] Last Admin: 09/10/17 09:33 Dose: 1 patch Lidocaine/Aluminum/Magnesium/Simeth (Magic Mouthwash *Sjr Formula* -) 5 ml MM Q6HPO [facility] Last Admin: 09/10/17 13:48 Dose: 5 ml Miscellaneous (Lidoderm Patch Removal) 1 each MC DAILY@2200 [facility] Last Admin: 09/09/17 22:18 Dose: Not Given Nicotine (Nicoderm Patch -) 21 mg TD DAILY [facility] Last Admin: 09/10/17 09:35 Dose: 21 mg Ondansetron HCl (Zofran Odt -) 4 mg SL Q8H PRN PRN Reason: NAUSEA Oxycodone HCl (Roxicodone -) 5 mg PO Q6H PRN PRN Reason: PAIN LEVEL 7 - 10 Last Admin: 09/10/17 09:34 Dose: 5 mg - Objective Vital Signs: Vital Signs Temperature 98.6 F 09/10/17 14:14 Pulse Rate 81 09/10/17 14:14 Respiratory Rate 18 09/10/17 14:14 Blood Pressure 130/72 09/10/17 14:14 O2 Sat by Pulse Oximetry (%) 100 09/09/17 21:00 Constitutional: Yes: No Distress, Calm Cardiovascular: Yes: Regular Rate and Rhythm Respiratory: Yes: Regular, CTA Bilaterally Gastrointestinal: Yes: Normal Bowel Sounds, Soft Musculoskeletal: Yes: WNL Extremities: Yes: WNL Neurological: Yes: Alert, Oriented Labs: CBC, BMP 09/10/17 06:00 09/10/17 06:00 Assessment/Plan Problem List - Problems (1) Diabetic keto-acidosis Code(s): E13.10 - OTH DIABETES MELLITUS WITH KETOACIDOSIS WITHOUT COMA Qualifiers: Diabetes mellitus type: due to underlying condition Diabetes mellitus complication detail: with coma Qualified Code(s): E08.11 - Diabetes mellitus due to underlying condition with ketoacidosis with coma (2) Renal failure (ARF), acute on chronic Code(s): N17.9 - ACUTE KIDNEY FAILURE, UNSPECIFIED; N18.9 - CHRONIC KIDNEY DISEASE, UNSPECIFIED Qualifiers: Acute renal failure type: unspecified Chronic kidney disease stage: unspecified stage Qualified Code(s): N17.9 - Acute kidney failure, unspecified ; N18.9 - Chronic kidney disease, unspecified; N18.9 - Chronic kidney disease, unspecified (3) Gastroparesis Code(s): K31.84 - GASTROPARESIS (4) Chronic pain Code(s): G89.29 - OTHER CHRONIC PAIN Qualifiers: Chronic pain type: chronic pain syndrome Qualified Code(s): G89.4 - Chronic pain syndrome after looking at the patient and the history at the moment i ahve low suspicion for a infectious focus. patient is very lethargic and her her neurological exam is normal her urine and her imaging studies are nor showing any infectious process plan no complaints today continue current mgmt wbc trending down rest as per primary
--- NOTE | 2017-09-10 16:47 | PN ---
Teaching Attending Note Name of Resident: Roberto Camacho ATTENDING PHYSICIAN STATEMENT I saw and evaluated the patient. I reviewed the resident's note and discussed the case with the resident. I agree with the resident's findings and plan as documented. SUBJECTIVE: No complaints. OBJECTIVE: Vital Signs Period Temp Pulse Resp BP Sys/Rapp Pulse Ox Last 24 Hr 98.2 F-99.6 F 67-87 18-20 121-136/69-85 99-100 HEART: S1S2, RRR LUNGS: Clear ABDOMEN: Soft, non-tender, non-distended, normal BS EXTREMITIES: No edema Laboratory Results - last 24 hr 09/09/17 09/09/17 09/09/17 16:45 17:36 21:50 WBC RBC Hgb Hct MCV MCH MCHC RDW Plt Count MPV Neutrophils % Lymphocytes % Monocytes % Eosinophils % Basophils % Sodium Potassium Chloride Carbon Dioxide Anion Gap BUN Creatinine Creat Clearance w eGFR POC Glucometer 376 425 Random Glucose Calcium Phosphorus Magnesium Total Bilirubin AST ALT Alkaline Phosphatase Total Protein Albumin Urine Color Ltyellow Urine Appearance Clear Urine pH 7.0 D Ur Specific [place] 1.010 Urine Protein Negative Urine Glucose (UA) 3+ H Urine Ketones Trace H Urine Blood Negative Urine Nitrite Negative Urine Bilirubin Negative Urine Urobilinogen 2.0 H Ur Leukocyte Esterase 1+ H Urine WBC (Auto) 1 Urine RBC (Auto) <1 Ur Epithelial Cells Rare Urine Bacteria Rare 09/09/17 09/10/17 09/10/17 23:30 05:58 06:00 WBC 10.2 H RBC 3.44 L Hgb 10.4 L Hct 30.9 L MCV 90.0 MCH 30.2 MCHC 33.5 RDW 15.2 Plt Count 260 MPV 8.6 Neutrophils % 65.9 Lymphocytes % 27.9 D Monocytes % 4.2 Eosinophils % 1.2 D Basophils % 0.8 D Sodium 143 Potassium 3.8 Chloride 107 Carbon Dioxide 23 Anion Gap 13 BUN 13 Creatinine 0.8 Creat Clearance w eGFR POC Glucometer 451 Random Glucose 374 H* Calcium 8.3 L Phosphorus Magnesium Total Bilirubin AST ALT Alkaline Phosphatase Total Protein Albumin Urine Color Urine Appearance Urine pH Ur Specific [place] Urine Protein Urine Glucose (UA) Urine Ketones Urine Blood Urine Nitrite Urine Bilirubin Urine Urobilinogen Ur Leukocyte Esterase Urine WBC (Auto) Urine RBC (Auto) Ur Epithelial Cells Urine Bacteria 09/10/17 09/10/17 06:00 11:43 WBC RBC Hgb Hct MCV MCH MCHC RDW Plt Count MPV Neutrophils % Lymphocytes % Monocytes % Eosinophils % Basophils % Sodium 139 Potassium 3.9 Chloride 104 Carbon Dioxide 21 Anion Gap 14 BUN 17 Creatinine 0.7 Creat Clearance w eGFR > 60 POC Glucometer 372 Random Glucose 449 H* Calcium 7.8 L Phosphorus 3.1 Magnesium 2.2 Total Bilirubin 0.5 D AST 70 H ALT 81 H Alkaline Phosphatase 218 H Total Protein 5.2 L Albumin 2.3 L Urine Color Urine Appearance Urine pH Ur Specific [place] Urine Protein Urine Glucose (UA) Urine Ketones Urine Blood Urine Nitrite Urine Bilirubin Urine Urobilinogen Ur Leukocyte Esterase Urine WBC (Auto) Urine RBC (Auto) Ur Epithelial Cells Urine Bacteria Current Medications Generic Name Dose Route Start Last Admin Trade Name Freq PRN Reason Stop Dose Admin Acetaminophen 650 mg 09/08/17 12:18 09/09/17 02:33 Tylenol Oral Solution - PO 650 mg Q6H PRN Administration PAIN LEVEL 4 - 6 Acetaminophen 325 mg 09/09/17 14:37 09/10/17 09:34 Tylenol - PO 325 mg Q6H PRN Administration PAIN LEVEL 7 - 10 Albuterol Sulfate 1 amp 09/07/17 18:59 Ventolin 0.083% Nebulizer Soln - NEB Q6H PRN SHORT OF BREATH/WHEEZING Aspirin 325 mg 09/08/17 10:00 09/10/17 09:33 Ecotrin - PO 325 mg DAILY [facility] Administration Atorvastatin Calcium 80 mg 09/07/17 22:00 09/09/17 22:18 Lipitor - PO 80 mg HS [facility] Administration Bacitracin 1 applic 09/10/17 13:15 09/10/17 13:53 Bacitracin - TP 1 applic DAILY [facility] Administration Heparin Sodium (Porcine) 5,000 unit 09/07/17 22:00 09/10/17 13:54 Heparin - SQ 5,000 unit TID [facility] Administration Potassium Chloride/Dextrose/Sod Cl 20 meq in 1,000 mls @ 83 mls/hr 09/07/17 18 :59 09/09/17 18:40 D5-1/2ns+20 Meq Kcl - IV Not Given ASDIR [facility] Insulin Aspart 1 vial 09/07/17 22:00 09/10/17 12:17 Novolog Vial Sliding Scale - SQ 5 units ACHS [facility] Administration Protocol Insulin Detemir 15 units 09/11/17 07:00 Levemir Vial SQ AM [facility] Lidocaine 1 patch 09/08/17 20:30 09/10/17 09:33 Lidoderm Patch - TP 1 patch DAILY [facility] Administration Lidocaine/Aluminum/Magnesium/Simeth 5 ml 09/08/17 00:00 09/10/17 13:48 Magic Mouthwash *Sjr Formula* - MM 5 ml Q6HPO [facility] Administration Miscellaneous 1 each 09/08/17 22:00 09/09/17 22:18 Lidoderm Patch Removal MC Not Given DAILY@2200 [facility] Nicotine 21 mg 09/08/17 10:00 09/10/17 09:35 Nicoderm Patch - TD 21 mg DAILY [facility] Administration Ondansetron HCl 4 mg 09/10/17 13:04 Zofran Odt - SL Q8H PRN NAUSEA Oxycodone HCl 5 mg 09/09/17 14:37 09/10/17 09:34 Roxicodone - PO 5 mg Q6H PRN Administration PAIN LEVEL 7 - 10 ASSESSMENT AND PLAN: This is a 47 year old woman with a history of type 1 DM, diabetic gastroparesis , chronic pain, CVA with left hemiparesis who presented to the ER after being found on the floor. 1. DKA - Resolved 2. Uncontrolled type 1 DM - Increase Levemir - Continue Novolog sliding scale - Found her insulin pump not functioning because of a battery 3. Acute metabolic encephalopathy secondary DKA, electrolyte abnormalities, hypothermia - Resolved 4. Hypothermia - Resolved 5. Acute kidney injury secondary to dehydration - Resolved 6. Hypernatremia - Resolved 7. Hypophosphatemia - Resolved 8. Hypokalemia - Resolved 9. Left hemiparesis secondary to recent CVA - Continue aspirin, Lipitor 10. Chronic pain - Continue Lidoderm, Percocet 11. Disposition - Expect discharge tomorrow if insulin pump functioning
[2017-09-10] MEDS: D5-1/2NS+20 MEQ KCL - 20 MEQ/1,000 ML INFUS.BAG IV SCH (19:11)
[2017-09-10] MEDS: ATORVASTATIN CA 80 MG TABLET (FP) PO SCH (21:49)
[2017-09-10] MEDS: LIDOCAINE PATCH REMOVAL MC SCH (21:49)
[2017-09-11] MEDS: MAG HYDROX/ALH/SMC/DPHA/LIDO 240 ML MOUTHWASH MM SCH ×4 (00:04→18:14)
[2017-09-11] MEDS: oxyCODONE HCL 5 MG TABLET PO PRN ×3 (00:09→13:10)
[2017-09-11] MEDS: ACETAMINOPHEN 325 MG TABLET (FP) PO PRN ×3 (00:10→13:15)
[2017-09-11] MEDS: INSULIN SLIDING SCALE (NOVOLOG) 1 VIAL SQ SCH ×2 (06:40→12:22)
[2017-09-11] MEDS: HEPARIN NA (PORCINE) 5,000 UNITS/ML 1ML VIAL SQ SCH ×2 (06:41→15:38)
--- NOTE | 2017-09-11 06:46 | PN ---
Physical Exam: SUBJECTIVE: Patient seen and examined - no overnight events. diet changed to soft per pt request due to oral pain. BG better controlled with increased levemir. Plan for discharge today. stable, afebrile - Pt denies fevers, n/v, diarrhea/constipation, CP, SOB, cough, ab pain. Still with chronic back pain, mild dysuria however states dysuria is improving. States she was scheduled to receive TYRON as part of stroke work-up by cardiology , however never received one. OBJECTIVE: Vital Signs Intake & Output 09/08/17 09/09/17 09/10/17 09/11/17 23:59 23:59 23:59 23:59 Intake Total 3559 1480 940 Balance 3559 1480 940 Period Temp Pulse Resp BP Sys/Rapp Pulse Ox Last 24 Hr 97.9 F-99.4 F 68-81 18-20 120-134/65-76 99-99 GENERAL: A&Ox3. NAD. HEAD: Normal with no signs of trauma. EYES: PERRL, extraocular movements intact, sclera anicteric, conjunctiva clear. No ptosis. ENT: Poor dentition. Ears normal, nares patent. No erythema or abscesses noted on exam. NECK: Trachea midline, full range of motion, supple. LUNGS: Breath sounds equal, clear to auscultation bilaterally, no wheezes, no crackles, no accessory muscle use. HEART: Regular rate and rhythm, S1. Prominent S2. No murmurs, rub or gallop. ABDOMEN: Slight lower abdominal discomfort to palpation. otherwise, Soft, nondistended, normoactive bowel sounds, no guarding, no rebound, no hepatosplenomegaly, no masses. EXTREMITIES: 2+ pulses, warm, well-perfused, no edema. NEUROLOGICAL: Cranial nerves II through XII grossly intact. 5/5 strength in R UE /LE with preserved sensation. 0/5 strength in distal LUE, proximal LUE 5/5, distal/proximal LLE 2/5 PSYCH: Normal mood, normal affect. Laboratory Results - last 24 hr CBC, BMP 09/11/17 05:46 09/11/17 05:46 09/09/17 09/10/17 09/10/17 21:50 05:58 06:00 WBC 10.2 H RBC 3.44 L Hgb 10.4 L Hct 30.9 L MCV 90.0 MCH 30.2 MCHC 33.5 RDW 15.2 Plt Count 260 MPV 8.6 Neutrophils % 65.9 Lymphocytes % 27.9 D Monocytes % 4.2 Eosinophils % 1.2 D Basophils % 0.8 D Sodium Potassium Chloride Carbon Dioxide Anion Gap BUN Creatinine Creat Clearance w eGFR POC Glucometer 425 451 Random Glucose Calcium Phosphorus Magnesium Total Bilirubin AST ALT Alkaline Phosphatase Total Protein Albumin 09/10/17 09/10/17 09/10/17 06:00 11:43 17:19 WBC RBC Hgb Hct MCV MCH MCHC RDW Plt Count MPV Neutrophils % Lymphocytes % Monocytes % Eosinophils % Basophils % Sodium 139 Potassium 3.9 Chloride 104 Carbon Dioxide 21 Anion Gap 14 BUN 17 Creatinine 0.7 Creat Clearance w eGFR > 60 POC Glucometer 372 154 Random Glucose 449 H* Calcium 7.8 L Phosphorus 3.1 Magnesium 2.2 Total Bilirubin 0.5 D AST 70 H ALT 81 H Alkaline Phosphatase 218 H Total Protein 5.2 L Albumin 2.3 L 09/10/17 21:35 WBC RBC Hgb Hct MCV MCH MCHC RDW Plt Count MPV Neutrophils % Lymphocytes % Monocytes % Eosinophils % Basophils % Sodium Potassium Chloride Carbon Dioxide Anion Gap BUN Creatinine Creat Clearance w eGFR POC Glucometer 246 Random Glucose Calcium Phosphorus Magnesium Total Bilirubin AST ALT Alkaline Phosphatase Total Protein Albumin Active Medications Generic Name Dose Route Start Last Admin Trade Name Myronq PRN Reason Stop Dose Admin Acetaminophen 650 mg 09/08/17 12:18 09/09/17 02:33 Tylenol Oral Solution - PO 650 mg Q6H PRN Administration PAIN LEVEL 4 - 6 Acetaminophen 325 mg 09/09/17 14:37 09/11/17 00:10 Tylenol - PO 325 mg Q6H PRN Administration PAIN LEVEL 7 - 10 Albuterol Sulfate 1 amp 09/07/17 18:59 Ventolin 0.083% Nebulizer Soln - NEB Q6H PRN SHORT OF BREATH/WHEEZING Aspirin 325 mg 09/08/17 10:00 09/10/17 09:33 Ecotrin - PO 325 mg DAILY [facility] Administration Atorvastatin Calcium 80 mg 09/07/17 22:00 09/10/17 21:49 Lipitor - PO 80 mg HS [facility] Administration Bacitracin 1 applic 09/10/17 13:15 09/10/17 13:53 Bacitracin - TP 1 applic DAILY [facility] Administration Heparin Sodium (Porcine) 5,000 unit 09/07/17 22:00 09/11/17 06:41 Heparin - SQ 5,000 unit TID [facility] Administration Potassium Chloride/Dextrose/Sod Cl 20 meq in 1,000 mls @ 83 mls/hr 09/07/17 18 :59 09/10/17 19:11 D5-1/2ns+20 Meq Kcl - IV Not Given ASDIR [facility] Insulin Aspart 1 vial 09/07/17 22:00 09/11/17 06:40 Novolog Vial Sliding Scale - SQ 5 units ACHS [facility] Administration Protocol Insulin Detemir 15 units 09/11/17 07:00 09/11/17 06:40 Levemir Vial SQ 15 units AM [facility] Administration Lidocaine 1 patch 09/08/17 20:30 09/10/17 09:33 Lidoderm Patch - TP 1 patch DAILY [facility] Administration Lidocaine/Aluminum/Magnesium/Simeth 5 ml 09/08/17 00:00 09/11/17 06:40 Magic Mouthwash *Sjr Formula* - MM 5 ml Q6HPO [facility] Administration Miscellaneous 1 each 09/08/17 22:00 09/10/17 21:49 Lidoderm Patch Removal MC Not Given DAILY@2200 [facility] Nicotine 21 mg 09/08/17 10:00 09/10/17 09:35 Nicoderm Patch - TD 21 mg DAILY [facility] Administration Ondansetron HCl 4 mg 09/10/17 13:04 Zofran Odt - SL Q8H PRN NAUSEA Oxycodone HCl 5 mg 09/09/17 14:37 09/11/17 00:09 Roxicodone - PO 5 mg Q6H PRN Administration PAIN LEVEL 7 - 10 Microbiology 09/05/17 16:35 Blood - Peripheral Venous Blood Culture - Final NO GROWTH AFTER 5 DAYS INCUBATION 09/05/17 16:30 Blood - Peripheral Venous Blood Culture - Final NO GROWTH AFTER 5 DAYS INCUBATION 09/05/17 17:25 Urine - Urine - Catheterized Urine Culture - Final NO GROWTH OBTAINED Head CT 09/05 - Findings: There is an evolving subacute infarct in the right MCA territory, involving the temporoparietal lobes, frontal lobe and insula, with decreased sulcal compression and new patchy gyriform hyperattenuation along the periphery of these infarct, most likely attributed to laminar necrosis. No compelling evidence of new acute transcortical infarction. There are no new mass effects. There is no midline shift or hydrocephalus. The calvarium is intact. The visualized paranasal sinuses and mastoid air cells are clear. Renal U/S 09/06 - Impression: 1. No hydronephrosis. 2. Borderline mildly enlarged kidneys with borderline echogenic cortices. These findings are equivocal for diabetic nephropathy. ASSESSMENT/PLAN: 47 yo woman w/ pmh of IDDM, gastroparesis, R CVA, currently admitted after being found unconscious by neighbor, determined to be in severe DKA. AG closed, off insulin drip, transferred out of ICU. afebrile, hemo stable, no eletrolyte abs. Still w/ hyperglycemia./ plan for d/c tomorrow. #DKA - Hyperglycemic again overnight to 300-400s. UA w/ 3+ glucose, trace ketones - Levemir increased to 15 u - Insulin SS; BGM Q4h - Started on regular diet; tolerating well - zofran SL for N/V - Monitor for hypoglycemia - Hold insulin pump at this time - Encourage aggressive oral hydration; refusing IV fluids - Plan for d/c w/ pump once battery replaced #Hypokalemia - 3.8 today; resolved - Serial BMPs - Replete as needed #hypophosphatemia - 3.1 today; resovled - Monitor phos; replete as needed #Elevated Alk phos - 218 today; mild transaminitis - Trend LFTs; improving #AMS - secondary to DKA and hypothermia; MS improved significantly, at baseline - Trend neuro status #Chronic back pain - better controlled on percocet QID - Spoke with outpt pain management Dr. Jules yesterday. Pt receives Percocet 10/ 325 QID, MS contin 60mg BID - percocet QID - PO tylenol #Dysphagia - Oral care with magic mouthwash - S+S ok'd regular diet; tolerating well #Oral pain/tooth abscess - no abscess noted on exam; pt states she needs bridge revision after trauma to oral cavity during fall - f/u w/ oral surgeon, Dr. Foley as outpt - scheduled appt w/ dentist, Dr. De La Vega, on October 24 - Pt was previously on clindamycin for suspected dental abscess with possible extraction; however not medically cleared given prior CVA in Jun for 3 months; will hold off on abx for now #Nicotine dependence - Nicoderm patch #Prior CVA - Repeat CT w/ no acute changes; prior CVA in R MCA - Monitor MS - c/w ASA/statin FEN: F: Pt refusing IV fluids. PO hydration E: Monitor lytes N: Diabetic diet PPX - HSQ D/c home tomorrow Plan discussed with attending, Dr. Doug Camacho, PGY1
[2017-09-11 07:00] LABS: HEMATOCRIT 30.6 % (32.4-45.2); HEMOGLOBIN 10.3 GM/dL (10.7-15.3); MCH 30.1 pg (25.7-33.7); MCHC 33.7 g/dl (32.0-36.0); MEAN CELL VOLUME 89.1 fl (80-96); MEAN PLT VOLUME 8.6 fl (7.5-11.1); PLATELET COUNT 299 K/MM3 (134-434); RBC 3.43 M/mm3 (3.60-5.2); RDW 14.9 % (11.6-15.6); WHITE BLOOD COUNT 9.6 K/mm3 (4.0-10.0)
[2017-09-11] MEDS ORDERED: INSULIN DETEMIR 100 UNITS/ML MDV SQ SCH (07:00)
[2017-09-11 07:09] LABS: CHLORIDE 104 mmol/L (98-107); POTASSIUM 4.3 mmol/L (3.5-5.1); SODIUM 139 mmol/L (136-145)
[2017-09-11 07:18] LABS: ALBUMIN 2.4 g/dl (3.4-5.0); ALK PHOS 194 U/L (45-117); ANION GAP 14 (8-16); BILIRUBIN,TOTAL 0.3 mg/dL (0.2-1.0); BLOOD UREA NITROGEN 12 mg/dL (7-18); CALCIUM 7.9 mg/dL (8.5-10.1); CO2 21 mmol/L (21-32); CREATININE 0.6 mg/dL (0.55-1.02); MAGNESIUM 2.2 mg/dL (1.8-2.4); PHOSPHOROUS 4.2 mg/dL (2.5-4.9); SGOT/AST 37 U/L (15-37); SGPT/ALT 59 U/L (12-78); TOT PROT 5.4 g/dl (6.4-8.2)
[2017-09-11 07:27] LABS: GLUCOSE,RANDOM 436 mg/dL (74-106)
[2017-09-11] MEDS ORDERED: PT OWN MED DRAWER 7, Y5N ONE ×2 (10:48→18:03)
[2017-09-11] MEDS: NICOTINE 21 MG/24 HOURS TOPICAL PATCH TD SCH (11:16)
[2017-09-11] MEDS: LIDOCAINE 5% TOPICAL PATCH TP SCH (11:18)
[2017-09-11] MEDS: ASPIRIN 325 MG ENTERIC COATED TABLET (FP) PO SCH (11:20)
[2017-09-11] MEDS: BACITRACIN 15 GM TUBE TOPICAL OINTMENT TP SCH (11:20)
--- NOTE | 2017-09-11 11:50 | PN ---
Progress Note, Physician History of Present Illness: patient doing well no issues - Current Medication List Current Medications: Active Medications Acetaminophen (Tylenol Oral Solution -) 650 mg PO Q6H PRN PRN Reason: PAIN LEVEL 4 - 6 Last Admin: 09/09/17 02:33 Dose: 650 mg Acetaminophen (Tylenol -) 325 mg PO Q6H PRN PRN Reason: PAIN LEVEL 7 - 10 Last Admin: 09/11/17 06:47 Dose: 325 mg Albuterol Sulfate (Ventolin 0.083% Nebulizer Soln -) 1 amp NEB Q6H PRN PRN Reason: SHORT OF BREATH/WHEEZING Aspirin (Ecotrin -) 325 mg PO DAILY [facility] Last Admin: 09/11/17 11:20 Dose: 325 mg Atorvastatin Calcium (Lipitor -) 80 mg PO HS [facility] Last Admin: 09/10/17 21:49 Dose: 80 mg Bacitracin (Bacitracin -) 1 applic TP DAILY [facility] Last Admin: 09/11/17 11:20 Dose: 1 applic Heparin Sodium (Porcine) (Heparin -) 5,000 unit SQ TID [facility] Last Admin: 09/11/17 06:41 Dose: 5,000 unit Potassium Chloride/Dextrose/Sod Cl (D5-1/2ns+20 Meq Kcl -) 20 meq in 1,000 mls @ 83 mls/hr IV ASDIR [facility] Last Admin: 09/10/17 19:11 Dose: Not Given Insulin Aspart (Novolog Vial Sliding Scale -) 1 vial SQ ACHS [facility] PRN Reason: Protocol Last Admin: 09/11/17 06:40 Dose: 5 units Insulin Detemir (Levemir Vial) 15 units SQ AM [facility] Last Admin: 09/11/17 06:40 Dose: 15 units Lidocaine (Lidoderm Patch -) 1 patch TP DAILY [facility] Last Admin: 09/11/17 11:18 Dose: 1 patch Lidocaine/Aluminum/Magnesium/Simeth (Magic Mouthwash *Sjr Formula* -) 5 ml MM Q6HPO [facility] Last Admin: 09/11/17 06:40 Dose: 5 ml Miscellaneous (Lidoderm Patch Removal) 1 each MC DAILY@2200 [facility] Last Admin: 09/10/17 21:49 Dose: Not Given Nicotine (Nicoderm Patch -) 21 mg TD DAILY [facility] Last Admin: 09/11/17 11:16 Dose: 21 mg Ondansetron HCl (Zofran Odt -) 4 mg SL Q8H PRN PRN Reason: NAUSEA Oxycodone HCl (Roxicodone -) 5 mg PO Q6H PRN PRN Reason: PAIN LEVEL 7 - 10 Last Admin: 09/11/17 06:46 Dose: 5 mg - Objective Vital Signs: Vital Signs Temperature 99.1 F 09/11/17 06:00 Pulse Rate 84 09/11/17 09:45 Respiratory Rate 18 09/11/17 09:45 Blood Pressure 132/72 09/11/17 09:45 O2 Sat by Pulse Oximetry (%) 99 09/10/17 21:00 Constitutional: Yes: No Distress, Calm Cardiovascular: Yes: Regular Rate and Rhythm Respiratory: Yes: Regular, CTA Bilaterally Gastrointestinal: Yes: Normal Bowel Sounds, Soft Musculoskeletal: Yes: WNL Extremities: Yes: WNL Neurological: Yes: Alert, Oriented Psychiatric: Yes: Alert, Oriented Labs: CBC, BMP 09/11/17 05:46 09/11/17 05:46 Assessment/Plan Problem List - Problems (1) Diabetic keto-acidosis Code(s): E13.10 - OTH DIABETES MELLITUS WITH KETOACIDOSIS WITHOUT COMA Qualifiers: Diabetes mellitus type: due to underlying condition Diabetes mellitus complication detail: with coma Qualified Code(s): E08.11 - Diabetes mellitus due to underlying condition with ketoacidosis with coma (2) Renal failure (ARF), acute on chronic Code(s): N17.9 - ACUTE KIDNEY FAILURE, UNSPECIFIED; N18.9 - CHRONIC KIDNEY DISEASE, UNSPECIFIED Qualifiers: Acute renal failure type: unspecified Chronic kidney disease stage: unspecified stage Qualified Code(s): N17.9 - Acute kidney failure, unspecified ; N18.9 - Chronic kidney disease, unspecified; N18.9 - Chronic kidney disease, unspecified (3) Gastroparesis Code(s): K31.84 - GASTROPARESIS (4) Chronic pain Code(s): G89.29 - OTHER CHRONIC PAIN Qualifiers: Chronic pain type: chronic pain syndrome Qualified Code(s): G89.4 - Chronic pain syndrome after looking at the patient and the history at the moment i ahve low suspicion for a infectious focus. patient is very lethargic and her her neurological exam is normal her urine and her imaging studies are nor showing any infectious process plan no complaints today continue current mgmt wbc trending down rest as per primary
--- NOTE | 2017-09-11 12:33 | PN ---
Progress Note (short form) - Note Progress Note: Feels OK. No CP or SOB. No acute events overnight. Intake & Output 09/08/17 09/09/17 09/10/17 09/11/17 23:59 23:59 23:59 23:59 Intake Total 3559 1480 940 Balance 3559 1480 940 Last Vital Signs Temp Pulse Resp BP Pulse Ox 99.1 F 84 18 132/72 99 09/11/17 06:00 09/11/17 09:45 09/11/17 09:45 09/11/17 09:45 09/10/17 21:00 Active Medications Acetaminophen (Tylenol Oral Solution -) 650 mg PO Q6H PRN PRN Reason: PAIN LEVEL 4 - 6 Last Admin: 09/09/17 02:33 Dose: 650 mg Acetaminophen (Tylenol -) 325 mg PO Q6H PRN PRN Reason: PAIN LEVEL 7 - 10 Last Admin: 09/11/17 06:47 Dose: 325 mg Albuterol Sulfate (Ventolin 0.083% Nebulizer Soln -) 1 amp NEB Q6H PRN PRN Reason: SHORT OF BREATH/WHEEZING Aspirin (Ecotrin -) 325 mg PO DAILY [facility] Last Admin: 09/11/17 11:20 Dose: 325 mg Atorvastatin Calcium (Lipitor -) 80 mg PO HS [facility] Last Admin: 09/10/17 21:49 Dose: 80 mg Bacitracin (Bacitracin -) 1 applic TP DAILY [facility] Last Admin: 09/11/17 11:20 Dose: 1 applic Heparin Sodium (Porcine) (Heparin -) 5,000 unit SQ TID [facility] Last Admin: 09/11/17 06:41 Dose: 5,000 unit Potassium Chloride/Dextrose/Sod Cl (D5-1/2ns+20 Meq Kcl -) 20 meq in 1,000 mls @ 83 mls/hr IV ASDIR [facility] Last Admin: 09/10/17 19:11 Dose: Not Given Insulin Aspart (Novolog Vial Sliding Scale -) 1 vial SQ ACHS [facility] PRN Reason: Protocol Last Admin: 09/11/17 12:22 Dose: 5 units Insulin Detemir (Levemir Vial) 15 units SQ AM [facility] Last Admin: 09/11/17 06:40 Dose: 15 units Lidocaine (Lidoderm Patch -) 1 patch TP DAILY [facility] Last Admin: 09/11/17 11:18 Dose: 1 patch Lidocaine/Aluminum/Magnesium/Simeth (Magic Mouthwash *Sjr Formula* -) 5 ml MM Q6HPO [facility] Last Admin: 09/11/17 06:40 Dose: 5 ml Miscellaneous (Lidoderm Patch Removal) 1 each MC DAILY@2200 [facility] Last Admin: 09/10/17 21:49 Dose: Not Given Nicotine (Nicoderm Patch -) 21 mg TD DAILY [facility] Last Admin: 09/11/17 11:16 Dose: 21 mg Ondansetron HCl (Zofran Odt -) 4 mg SL Q8H PRN PRN Reason: NAUSEA Oxycodone HCl (Roxicodone -) 5 mg PO Q6H PRN PRN Reason: PAIN LEVEL 7 - 10 Last Admin: 09/11/17 06:46 Dose: 5 mg General: NAD Neuro:stable deficit Pulm: CTA CV: S1, S2 RRR Abd: Soft, (+) BS Ext:+2 pulses Laboratory Results - last 24 hr 09/09/17 09/10/17 09/10/17 21:50 05:58 17:19 WBC RBC Hgb Hct MCV MCH MCHC RDW Plt Count MPV Sodium Potassium Chloride Carbon Dioxide Anion Gap BUN Creatinine Creat Clearance w eGFR POC Glucometer 425 451 154 Random Glucose Calcium Phosphorus Magnesium Total Bilirubin AST ALT Alkaline Phosphatase Total Protein Albumin 09/10/17 09/11/17 09/11/17 21:35 05:46 05:46 WBC 9.6 RBC 3.43 L Hgb 10.3 L Hct 30.6 L MCV 89.1 MCH 30.1 MCHC 33.7 RDW 14.9 Plt Count 299 MPV 8.6 Sodium 139 Potassium 4.3 Chloride 104 Carbon Dioxide 21 Anion Gap 14 BUN 12 Creatinine 0.6 Creat Clearance w eGFR > 60 POC Glucometer 246 Random Glucose 436 H* Calcium 7.9 L Phosphorus 4.2 Magnesium 2.2 Total Bilirubin 0.3 D AST 37 ALT 59 Alkaline Phosphatase 194 H Total Protein 5.4 L Albumin 2.4 L 09/11/17 05:59 WBC RBC Hgb Hct MCV MCH MCHC RDW Plt Count MPV Sodium Potassium Chloride Carbon Dioxide Anion Gap BUN Creatinine Creat Clearance w eGFR POC Glucometer 482 Random Glucose Calcium Phosphorus Magnesium Total Bilirubin AST ALT Alkaline Phosphatase Total Protein Albumin Problem List - Problems (1) Diabetic keto-acidosis Code(s): E13.10 - OTH DIABETES MELLITUS WITH KETOACIDOSIS WITHOUT COMA Qualifiers: Diabetes mellitus type: due to underlying condition Diabetes mellitus complication detail: with coma Qualified Code(s): E08.11 - Diabetes mellitus due to underlying condition with ketoacidosis with coma (2) Renal failure (ARF), acute on chronic Code(s): N17.9 - ACUTE KIDNEY FAILURE, UNSPECIFIED; N18.9 - CHRONIC KIDNEY DISEASE, UNSPECIFIED Qualifiers: Acute renal failure type: unspecified Chronic kidney disease stage: unspecified stage Qualified Code(s): N17.9 - Acute kidney failure, unspecified ; N18.9 - Chronic kidney disease, unspecified; N18.9 - Chronic kidney disease, unspecified (3) Gastroparesis Code(s): K31.84 - GASTROPARESIS (4) Chronic pain Code(s): G89.29 - OTHER CHRONIC PAIN Qualifiers: Chronic pain type: chronic pain syndrome Qualified Code(s): G89.4 - Chronic pain syndrome Assessment/Plan Glycemic control No smoking Replete lytes VTE prophylaxis No smoking D/C planning Dr Otero
[2017-09-11] MEDS ORDERED: INSULIN SLIDING SCALE (NOVOLOG) 1 VIAL SQ SCH (13:04)
[2017-09-11 14:24] VITALS: BP 122/69; PULSE 80; TEMP 99
--- NOTE | 2017-09-11 14:57 | PN ---
Teaching Attending Note Name of Resident: Roberto Camacho ATTENDING PHYSICIAN STATEMENT I saw and evaluated the patient. I reviewed the resident's note and discussed the case with the resident. I agree with the resident's findings and plan as documented. SUBJECTIVE: No complaints. OBJECTIVE: Vital Signs Period Temp Pulse Resp BP Sys/Rapp Pulse Ox Last 24 Hr 97.9 F-99.4 F 68-84 16-20 120-134/65-76 99-100 HEART: S1S2, RRR LUNGS: Clear ABDOMEN: Soft, non-tender, non-distended, normal BS EXTREMITIES: No edema Laboratory Results - last 24 hr 09/10/17 09/10/17 09/11/17 17:19 21:35 05:46 WBC 9.6 RBC 3.43 L Hgb 10.3 L Hct 30.6 L MCV 89.1 MCH 30.1 MCHC 33.7 RDW 14.9 Plt Count 299 MPV 8.6 Sodium Potassium Chloride Carbon Dioxide Anion Gap BUN Creatinine Creat Clearance w eGFR POC Glucometer 154 246 Random Glucose Calcium Phosphorus Magnesium Total Bilirubin AST ALT Alkaline Phosphatase Total Protein Albumin 09/11/17 09/11/17 09/11/17 05:46 05:59 11:49 WBC RBC Hgb Hct MCV MCH MCHC RDW Plt Count MPV Sodium 139 Potassium 4.3 Chloride 104 Carbon Dioxide 21 Anion Gap 14 BUN 12 Creatinine 0.6 Creat Clearance w eGFR > 60 POC Glucometer 482 473 Random Glucose 436 H* Calcium 7.9 L Phosphorus 4.2 Magnesium 2.2 Total Bilirubin 0.3 D AST 37 ALT 59 Alkaline Phosphatase 194 H Total Protein 5.4 L Albumin 2.4 L 09/11/17 12:30 WBC RBC Hgb Hct MCV MCH MCHC RDW Plt Count MPV Sodium Potassium Chloride Carbon Dioxide Anion Gap BUN Creatinine Creat Clearance w eGFR POC Glucometer Random Glucose 369 H* Calcium Phosphorus Magnesium Total Bilirubin AST ALT Alkaline Phosphatase Total Protein Albumin Current Medications Generic Name Dose Route Start Last Admin Trade Name Freq PRN Reason Stop Dose Admin Acetaminophen 650 mg 09/08/17 12:18 09/09/17 02:33 Tylenol Oral Solution - PO 650 mg Q6H PRN Administration PAIN LEVEL 4 - 6 Acetaminophen 325 mg 09/09/17 14:37 09/11/17 13:15 Tylenol - PO 325 mg Q6H PRN Administration PAIN LEVEL 7 - 10 Albuterol Sulfate 1 amp 09/07/17 18:59 Ventolin 0.083% Nebulizer Soln - NEB Q6H PRN SHORT OF BREATH/WHEEZING Aspirin 325 mg 09/08/17 10:00 09/11/17 11:20 Ecotrin - PO 325 mg DAILY [facility] Administration Atorvastatin Calcium 80 mg 09/07/17 22:00 09/10/17 21:49 Lipitor - PO 80 mg HS [facility] Administration Bacitracin 1 applic 09/10/17 13:15 09/11/17 11:20 Bacitracin - TP 1 applic DAILY [facility] Administration Heparin Sodium (Porcine) 5,000 unit 09/07/17 22:00 09/11/17 06:41 Heparin - SQ 5,000 unit TID [facility] Administration Potassium Chloride/Dextrose/Sod Cl 20 meq in 1,000 mls @ 83 mls/hr 09/07/17 18 :59 09/10/17 19:11 D5-1/2ns+20 Meq Kcl - IV Not Given ASDIR [facility] Insulin Aspart 1 vial 09/11/17 13:04 Novolog Vial Sliding Scale - SQ ACHS [facility] Protocol Insulin Detemir 15 units 09/11/17 07:00 09/11/17 06:40 Levemir Vial SQ 15 units AM [facility] Administration Lidocaine 1 patch 09/08/17 20:30 09/11/17 11:18 Lidoderm Patch - TP 1 patch DAILY [facility] Administration Lidocaine/Aluminum/Magnesium/Simeth 5 ml 09/08/17 00:00 09/11/17 13:18 Magic Mouthwash *Sjr Formula* - MM 5 ml Q6HPO [facility] Administration Miscellaneous 1 each 09/08/17 22:00 09/10/17 21:49 Lidoderm Patch Removal MC Not Given DAILY@2200 [facility] Nicotine 21 mg 09/08/17 10:00 09/11/17 11:16 Nicoderm Patch - TD 21 mg DAILY [facility] Administration Ondansetron HCl 4 mg 09/10/17 13:04 Zofran Odt - SL Q8H PRN NAUSEA Oxycodone HCl 5 mg 09/09/17 14:37 09/11/17 13:10 Roxicodone - PO 5 mg Q6H PRN Administration PAIN LEVEL 7 - 10 ASSESSMENT AND PLAN: This is a 47 year old woman with a history of type 1 DM, diabetic gastroparesis , chronic pain, CVA with left hemiparesis who presented to the ER after being found on the floor. 1. DKA - Resolved 2. Uncontrolled type 1 DM - Continue Levemir, Novolog sliding scale - Found her insulin pump not functioning because of a battery - Will discuss with endocrine resuming insulin pump on discharge 3. Acute metabolic encephalopathy secondary DKA, electrolyte abnormalities, hypothermia - Resolved 4. Hypothermia - Resolved 5. Acute kidney injury secondary to dehydration - Resolved 6. Hypernatremia - Resolved 7. Hypophosphatemia - Resolved 8. Hypokalemia - Resolved 9. Left hemiparesis secondary to recent CVA - Continue aspirin, Lipitor 10. Chronic pain - Continue Lidoderm, Percocet
--- NOTE | 2017-09-11 23:38 | DS ---
Physical Exam: SUBJECTIVE: Patient seen and examined - no overnight events. diet changed to soft per pt request due to oral pain. BG better controlled with increased levemir. Plan for discharge today. stable, afebrile - Pt denies fevers, n/v, diarrhea/constipation, CP, SOB, cough, ab pain. Still with chronic back pain, mild dysuria however states dysuria is improving. States she was scheduled to receive TYRON as part of stroke work-up by cardiology , however never received one. OBJECTIVE: Vital Signs Intake & Output 09/08/17 09/09/17 09/10/17 09/11/17 23:59 23:59 23:59 23:59 Intake Total 3559 1480 940 960 Balance 3559 1480 940 960 Period Temp Pulse Resp BP Sys/Rapp Pulse Ox Last 24 Hr 99.0 F-99.4 F 68-84 16-18 121-134/69-76 100 PHYSICAL EXAM GENERAL: A&Ox3. NAD. HEAD: Normal with no signs of trauma. EYES: PERRL, extraocular movements intact, sclera anicteric, conjunctiva clear. No ptosis. ENT: Poor dentition. Ears normal, nares patent. No erythema or abscesses noted on exam. NECK: Trachea midline, full range of motion, supple. LUNGS: Breath sounds equal, clear to auscultation bilaterally, no wheezes, no crackles, no accessory muscle use. HEART: Regular rate and rhythm, S1. Prominent S2. No murmurs, rub or gallop. ABDOMEN: Slight lower abdominal discomfort to palpation. otherwise, Soft, nondistended, normoactive bowel sounds, no guarding, no rebound, no hepatosplenomegaly, no masses. EXTREMITIES: 2+ pulses, warm, well-perfused, no edema. NEUROLOGICAL: Cranial nerves II through XII grossly intact. 5/5 strength in R UE /LE with preserved sensation. 0/5 strength in distal LUE, proximal LUE 5/5, distal/proximal LLE 2/5 PSYCH: Normal mood, normal affect. LABS Laboratory Results - last 24 hr CBC, BMP 09/11/17 05:46 09/11/17 12:30 09/11/17 09/11/17 09/11/17 05:46 05:46 05:59 WBC 9.6 RBC 3.43 L Hgb 10.3 L Hct 30.6 L MCV 89.1 MCH 30.1 MCHC 33.7 RDW 14.9 Plt Count 299 MPV 8.6 Sodium 139 Potassium 4.3 Chloride 104 Carbon Dioxide 21 Anion Gap 14 BUN 12 Creatinine 0.6 Creat Clearance w eGFR > 60 POC Glucometer 482 Random Glucose 436 H* Calcium 7.9 L Phosphorus 4.2 Magnesium 2.2 Total Bilirubin 0.3 D AST 37 ALT 59 Alkaline Phosphatase 194 H Total Protein 5.4 L Albumin 2.4 L 09/11/17 09/11/17 09/11/17 11:49 12:30 17:30 WBC RBC Hgb Hct MCV MCH MCHC RDW Plt Count MPV Sodium Potassium Chloride Carbon Dioxide Anion Gap BUN Creatinine Creat Clearance w eGFR POC Glucometer 473 242 Random Glucose 369 H* Calcium Phosphorus Magnesium Total Bilirubin AST ALT Alkaline Phosphatase Total Protein Albumin Microbiology 09/10/17 03:33 Urine - Urine Clean Catch Urine Culture - Final Contaminated: Please Repeat 09/05/17 16:35 Blood - Peripheral Venous Blood Culture - Final NO GROWTH AFTER 5 DAYS INCUBATION 09/05/17 16:30 Blood - Peripheral Venous Blood Culture - Final NO GROWTH AFTER 5 DAYS INCUBATION 09/05/17 17:25 Urine - Urine - Catheterized Urine Culture - Final NO GROWTH OBTAINED Head CT 09/05 - Findings: There is an evolving subacute infarct in the right MCA territory, involving the temporoparietal lobes, frontal lobe and insula, with decreased sulcal compression and new patchy gyriform hyperattenuation along the periphery of these infarct, most likely attributed to laminar necrosis. No compelling evidence of new acute transcortical infarction. There are no new mass effects. There is no midline shift or hydrocephalus. The calvarium is intact. The visualized paranasal sinuses and mastoid air cells are clear. Renal U/S 09/06 - Impression: 1. No hydronephrosis. 2. Borderline mildly enlarged kidneys with borderline echogenic cortices. These findings are equivocal for diabetic nephropathy. Consults: ID - Seen by Dr. Margarito Templelogy - Seen by Dr. Morales [facility]: Date of Admission:09/05/17 Date of Discharge: 09/11/17 Discharge Summary Reason For Visit: ACUTE ON CHRONIC RENAL FAILURE; DKA Condition: Stable - Instructions Diet, Activity, Other Instructions: During your stay at [facility], you were treated for DKA, a condition involving severely elevated blood sugars and electrolyte abnormalities, which can lead to confusion and changes to your mental function when severe. You have been treated with insulin, fluids and electrolyte repletion and your condition has since improved. Medications: Please continue to use your insulin pump as previously directed by your hydraulic pile hammer operator, Dr. Tripp. Please continue to take your current pain medication regimen as prescribed by your pain management physician, Dr. Jules. Please continue to take all other home medications as previously directed. Follow-ups: Please follow-up with your primary care physician in one week for further management of your medications. Please call their office to schedule an appointment. Please follow-up with your dentist, Dr. De La Vega, and your oral surgeon, Dr. Foley , upon discharge for further management of your dental care. Please contact their office and schedule an appointment as soon as possible. Please schedule an appointment to see your hydraulic pile hammer operator, Dr. Tripp, within one week or further management of your diabetes medication. Per your request, contact information for Dr. Chapman, our in-house hydraulic pile hammer operator, has also been provided. Please follow-up with him as soon as possible for an appointment if you decide to transfer care. You were last seen in 07/2017 for an acute stroke with recommended transesophageal echo work-up with cardiology. You were referred for follow-up with Dr. Reynolds and his group. Please call to schedule an outpatient appointment upon discharge. His contact information has been provided. Diet/exercise: Please adhere to a diet of soft foods as tolerated, minimizing carbohydrates and foods high in saturated fats/refined sugar. Our physical therapy team has determined that you will need a walker to assist with ambulation. A prescription for a rolling walker has been provided for you. Please return to the hospital if you experience any of the following symptoms: - Persistent fevers or chills, dizziness - Worsening abdominal pain, nausea or vomiting - Pain with urination or blood in your urine - Any new or concerning symptoms Referrals: Rao Camacho MD [Staff Physician] - Jaspal Reynolds MD [Staff Physician] - 2 Weeks Bhanu Foley DMD [Non Staff, Medical] - 1 Week Genaro Chapman MD [Staff Physician] - 1 Week Disposition: HOME - Home Medications Comprehensive Discharge Medication List: Ambulatory Orders Walker [Ultra-Light Rollator] 1 each MC DAILY #1 each 09/11/17 - Discharge Referral Referred to [facility] No
== END 2017-09-11 18:30 | disposition home or self-care (01) | DRG 919 ==
LOC: JER 16:10 → JERBED 18:21 → JICU 18:57 → J5S 09-07 20:23
PROVIDERS: ADMIT Internal Medicine; ATTEND Internal Medicine
DX: T85.694A Other mechanical complication of insulin pump, initial encounter (principal); E11.10 Type 2 diabetes mellitus with ketoacidosis without coma; G93.41 Metabolic encephalopathy; E87.0 Hyperosmolality and hypernatremia; E87.2 Acidosis; N17.9 Acute kidney failure, unspecified; I69.354 Hemiplegia and hemiparesis following cerebral infarction affecting left non-dominant side; E87.1 Hypo-osmolality and hyponatremia; J44.9 Chronic obstructive pulmonary disease, unspecified; D72.829 Elevated white blood cell count, unspecified; F17.210 Nicotine dependence, cigarettes, uncomplicated; E86.0 Dehydration; E87.6 Hypokalemia; E83.39 Other disorders of phosphorus metabolism; G89.29 Other chronic pain; K31.84 Gastroparesis; R13.10 Dysphagia, unspecified; Y83.9 Surgical procedure, unspecified as the cause of abnormal reaction of the patient, or of later complication, without mention of misadventure at the time of the procedure
CPT/HCPCS: 36415; 70450-TC; 71045-TC-FY; 76775-TC; 80048; 80053; 80307; 81003; 81015; 82009; 82436; 82550; 82553; 82570; 82693; 82803; 82947; 82962; 83036; 83605; 83735; 83935; 84100; 84133; 84300; 84443; 84484; 84703; 85025; 85027; 87040; 87086; 87205; 93005; 93010; 97116-GP; 97161-GP; 99285-25; J0131; J1644; J7030

== ENCOUNTER 2017-09-12 21:22 | Inpatient (IN) | payer OTHER ==
--- NOTE | 2017-09-12 21:31 | PDOC ---
History of Present Illness - General Chief Complaint: Altered Mental Status Stated Complaint: ALTERED MENTAL STATUS History Source: Patient (the right daycare) Exam Limitations: No Limitations - History of Present Illness Initial Comments: 09/12/17 21:53 This is a 47-year-old female brought in by her for evaluation of altered mental status. Patient was just discharged from [facility] 2 days ago post an episode of hyperglycemia and DKA. Patient has frequent hospital admissions for hyperglycemia and DKA. Patient came home tonight and found her on the floor, confused and very out of it. He brought her in by private vehicle. Patient emergency room patient does respond an attempt to answer questions however the answers she gives do not make any sense. Patient is able to follow basic commands, patient denies any chest pain , abdominal pain or any pain. Patient otherwise is unable to verbalize anything more than a yes or no answer. When she attempts to verbalize more the answer is not comprehensible. PAST MEDICAL HISTORY: Insulin-dependent diabetes PAST SURGICAL HISTORY: no significant history FAMILY HISTORY: no pertinant history SOCIAL HISTORY: Pt lives with family MEDICATIONS: reviewed ALLERGIES: As per nursing notes Review of Systems: Obtained some from but mostly unobtainable secondary to patient's clinical status General: Altered mental status As per he was unaware of any new complaints. And patient is unable to give a coherent history Exam: General: Well-nourished well-developed individual, no acute distress HEENT: Throat: Normal, tonsils normal, no erythema or exudate Neck: Supple, no meningeal signs, no lymphadenopathy Eyes::Pupils equal reactive and round, extraocular motion intact Chest: Nontender to palpation Cardiac: S1-S2 normal, regular rate and rhythm, no murmurs rubs or gallops Respiratory: Lungs clear to auscultation bilateral, small breathing Abdomen: Soft, nondistended, normal bowel sounds, nontender to palpation diffusely, insulin pump in place Extremities: Warm, dry, no cyanosis, clubbing, or edema Skin: No rashes Neuro: Patient is lethargic and confused. She does move all 4 extremities and follow basic commands but unable to do the NIH stroke scale [place] to her altered mental status and inability to pay attention and follow the commands necessary further evaluation of NIH stroke scale Medical decision making This is a 47-year-old female with frequent DKA admissions. Patient was just discharged a few days ago after a DKA admission. Patient comes in lethargic and altered mental status. Patient's initial fingerstick is high on the monitor. Will obtain a workup for DKA including labs, fluids, EKG, CBC, monitoring and chest x-ray. We'll reassess frequently and follow-up with the workup Patient is a difficult stick and I attempted to place a femoral line but was unsuccessful. However nursing was able to obtain 2 peripheral lines and we're hydrating the patient. I have not started insulin as I do not know what the potassium is. EKG shows sinus tachycardia at a rate of 139 but there are no acute ST-T wave changes Patient's initial blood gases pH of 7.19, pCO2 of 12.1 and pO2 of 142. Patient's white count is 16,000. 09/13/17 00:12 Reevaluation patient is being hydrated at this point very difficult stick took an extensive amount of time to get a line in the patient and blood draw was by Aki. Patient remains clinically stable but unchanged. EKG shows sinus tachycardia at a rate of 139, T's appear to be peaked, serum hepatic test seemed still pending, but there are no acute ST-T wave changes 09/13/17 01:55 Reevaluation patient remains critical but stable. Patient's potassium came back 7.8 Gave patient 1000 mg of calcium gluconate, 20 units of insulin IV push and started patient on an insulin drip at 0.1 units insulin per KG per hour Patient will be transferred to the ICU at [facility]. A rescue ambulance was called and will be here in 20 minutes Discussed with the bung sewer at the ICU was accepted the patient for admission Notified hospitalist service regarding admission as well Past History - Past Medical History Allergies/Adverse Reactions: Allergies Allergy/AdvReac Type Severity Reaction Status Date / Time No Known Allergies Allergy Verified 08/15/17 12:12 Home Medications: Ambulatory Orders Unobtainable [Unobtainable] 09/13/17 CVA: Yes COPD: No Diabetes: Yes (TYPE I, DKA) GI Disorders: Yes (GASTROPARESIS) - Surgical History Cholecystectomy: Yes (AGE 19) - Immunization History Td Vaccination: Yes Immunization Up to Date: Yes - Suicide/Smoking/Psychosocial Hx Smoking Status: Yes Smoking History: Current every day smoker Years of Tobacco Use: 15 Have you smoked in the past 12 months: Yes Number of Cigarettes Smoked Daily: 20 'Breaking Loose' booklet given: 08/15/17 Hx Alcohol Use: No Drug/Substance Use Hx: Yes Substance Use Type: Marijuana Hx Substance Use Treatment: No ED Treatment Course - LABORATORY CBC & Chemistry Diagram: 09/13/17 00:01 09/13/17 04:00 Medical Decision Making - Critical Care Time Total Critical Care Time (minutes): 240 Critical Care Statement: The care of this patient involved high complexity decision making to prevent further life threatening deterioration of the patient 's condition and/or to evaluate & treat vital organ system(s) failure or risk of failure. *DC/Admit/Observation/Transfer Diagnosis at time of Disposition: Hyperkalemia, Hyperglycemia Diabetic keto-acidosis Qualifiers: Diabetes mellitus type: due to underlying condition Diabetes mellitus complication detail: with coma Qualified Code(s): E08.11 - Diabetes mellitus due to underlying condition with ketoacidosis with coma - Discharge Dispostion Condition at time of disposition: Stable Admit: Yes - Referrals - Patient Instructions - Post Discharge Activity
[2017-09-12] MEDS ORDERED: SODIUM CHLORIDE 1,000 ML IV ONE (22:22)
[2017-09-12] MEDS ORDERED: HEMOQUE TEST 1 EACH EACH ONE (22:27)
[2017-09-13 01:14] LABS: BASO % 0.4 % (0-2.0); HEMATOCRIT 32.1 % (32.4-45.2); HEMOGLOBIN 9.5 GM/dL (10.7-15.3); LYMPH % 6.8 % (8-40); MCH 30.1 pg (25.7-33.7); MCHC 29.7 g/dl (32.0-36.0); MEAN CELL VOLUME 101.3 fl (80-96); MEAN PLT VOLUME 9.5 fl (7.5-11.1); MONO % 6.9 % (3.8-10.2); NEUT % 85.9 % (42.8-82.8); PLATELET COUNT 466 K/MM3 (134-434); RBC 3.17 M/mm3 (3.60-5.2); RDW 16.7 % (11.6-15.6)
[2017-09-13 01:22] LABS: URINE APPEARANCE CLEAR; URINE BILIRUBIN NEGATIVE (NEGATIVE); URINE BLOOD 1+ (NEGATIVE); URINE COLOR STRAW; URINE GLUCOSE (UA) 3+ (NEGATIVE); URINE KETONE 1+ (NEGATIVE); URINE LEUK ESTERASE NEGATIVE (NEGATIVE); URINE NITRITE NEGATIVE (NEGATIVE); URINE PROTEIN NEGATIVE (NEGATIVE); URINE UROBILINOGEN NEGATIVE mg/dL (0.2-1.0); VENOUS PC02 12.1 mmHg (38-52); VENOUS PH 7.19 (7.32-7.42)
[2017-09-13 01:31] LABS: EPI CELLS RARE /HPF (FEW); URINE MUCUS RARE
[2017-09-13 01:39] LABS: ALBUMIN 3.1 g/dl (3.4-5.0); BILIRUBIN,TOTAL 0.5 mg/dL (0.2-1.0); BLOOD UREA NITROGEN 44 mg/dL (7-18); CALCIUM 9.3 mg/dL (8.5-10.1); CHLORIDE 90 mmol/L (98-107); CREATININE 1.7 mg/dL (0.55-1.02); SGOT/AST 18 U/L (15-37); SGPT/ALT 47 U/L (12-78); SODIUM 130 mmol/L (136-145)
[2017-09-13 01:40] LABS: ALK PHOS 178 U/L (45-117); TOT PROT 6.1 g/dl (6.4-8.2)
[2017-09-13 01:41] LABS: ANION GAP 35 (8-16); CO2 5 mmol/L (21-32)
[2017-09-13 01:42] LABS: GLUCOSE,RANDOM 1298 mg/dL (74-106); POTASSIUM 7.8 mmol/L (3.5-5.1)
[2017-09-13] MEDS ORDERED: INSULIN REGULAR HUMAN 100 UNITS/ML *VIAL IVPUSH ONE (01:44)
[2017-09-13] MEDS ORDERED: CALCIUM GLUCONATE 10% - 1,000 MG/10 ML VIAL ONE (01:46)
[2017-09-13] MEDS ORDERED: CALCIUM GLUCONATE 10% - 1,000 MG/10 ML VIAL IVPUSH ONE (01:47)
[2017-09-13] MEDS ORDERED: INSULIN REGULAR HUMAN 100 UNITS/ML *VIAL ONE (01:47)
[2017-09-13] MEDS: INSULIN REGULAR 100 UNITS in SODIUM CHLORIDE 99 ML IVPB SCH (01:58)
[2017-09-13 02:25] LABS: COCAINE, UR NEGATIVE ng/ml (CUTOFF=300); METHADONE, UR NEGATIVE ng/ml (CUTOFF=300); OPIATES, URI POSITIVE ng/ml (CUTOFF=300); PHENCYCLIDINE,URINE NEGATIVE ng/ml (CUTOFF=25); URINE AMPHETAMINES NEGATIVE ng/ml (CUTOFF=500); URINE BARBITURATES NEGATIVE ng/ml (CUTOFF=200); URINE BENZODIAZEPINES NEGATIVE ng/ml (CUTOFF=200)
[2017-09-13 04:00] VITALS: BMI 19.3
--- NOTE | 2017-09-13 04:09 | CONSULT ---
Consult Consult Specialty:: Pulmonary Critical Care Reason for Consultation:: DKA - History of Present Illness History of Present Illness: This is a 47 yo woman with h/o active tobacco use, HLD, poorly controlled IDDM c /b recent CVA (left sided hemiparesis), gastroparesis who was recently admitted at [facility] with DKA and discharged on 09/11. Was brought to [place] by her on 09/12 for evaluation of AMS. Labs notable for Glucose of 1298, Na 130 (corrected 149), Cr 1.7 (0.7 on 09/10), K 7.8, AG 35, WBC 16, Lactate of 3.3, +ketones, utox positive for opiates. CT done, no new acute processes (known stroke from prior). CXR clear. Pt was started on insulin drip, given 2 g of calcium and transferred to our ICU for further management of recurrent DKA. Active Medications Insulin Human Regular 100 (units/ Sodium Chloride) 100 mls @ 5.94 mls/hr IVPB TITR [facility]; 0.1 UNITS/KG/HR PRN Reason: Protocol Last Admin: 09/13/17 01:58 Dose: 0.1 units/kg/hr, 5.94 mls/hr - Past Medical History PHOTO EDITOR: Yes: CVA (right MCA), Migraine Gastrointestinal: Yes: Other (Gastroparesis) ...LMP: 04/14/13 Musculoskeletal: Yes: Chronic low back pain Endocrine: Yes: Diabetes Mellitus Additional Medical History: dka in the past - Past Surgical History Past Surgical History: Yes: Cholecystectomy - Alcohol/Substance Use Hx Alcohol Use: No History of Substance Use: reports: None - Smoking History Smoking history: Current every day smoker Have you smoked in the past 12 months: Yes Aproximately how many cigarettes per day: 20 - Social History ADL: Independent History of Recent Travel: No Home Medications - Allergies Allergies/Adverse Reactions: Allergies Allergy/AdvReac Type Severity Reaction Status Date / Time No Known Allergies Allergy Verified 08/15/17 12:12 - Home Medications Home Medications: Ambulatory Orders Walker [Ultra-Light Rollator] 1 each MC DAILY #1 each 09/11/17 Family Disease History - Family Disease History Family Disease History: Heart Disease: Father (cad) Physical Exam Vital Signs: Vital Signs Temperature 98.5 F 09/13/17 03:53 Pulse Rate 94 H 09/13/17 03:53 Respiratory Rate 16 09/13/17 03:53 Blood Pressure 135/61 09/13/17 03:53 O2 Sat by Pulse Oximetry (%) 100 09/13/17 02:15 Eyes: Yes: WNL HENT: Yes: Other (no upper teeth) Cardiovascular: Yes: Regular Rate and Rhythm, S1, S2 Respiratory: Yes: CTA Bilaterally, Tachypnea Gastrointestinal: Yes: Normal Bowel Sounds, Soft Edema: No Neurological: Yes: Other (responsive painful stimuli, PERRL) Labs: CBC, BMP 09/13/17 00:01 CBCD WBC 16.0 K/mm3 (4.0-10.0) H D 09/13/17 00:01 RBC 3.17 M/mm3 (3.60-5.2) L 09/13/17 00:01 Hgb 9.5 GM/dL (10.7-15.3) L 09/13/17 00:01 Hct 32.1 % (32.4-45.2) L 09/13/17 00:01 MCV 101.3 fl (80-96) H D 09/13/17 00:01 MCHC 29.7 g/dl (32.0-36.0) L 09/13/17 00:01 RDW 16.7 % (11.6-15.6) H D 09/13/17 00:01 Plt Count 466 K/MM3 (134-434) H D 09/13/17 00:01 MPV 9.5 fl (7.5-11.1) D 09/13/17 00:01 CMP Sodium 130 mmol/L (136-145) L 09/13/17 00:01 Potassium 7.8 mmol/L (3.5-5.1) H* 09/13/17 00:01 Chloride 90 mmol/L (98-107) L 09/13/17 00:01 Carbon Dioxide 5 mmol/L (21-32) L 09/13/17 00:01 Anion Gap 35 (8-16) H 09/13/17 00:01 BUN 44 mg/dL (7-18) H D 09/13/17 00:01 Creatinine 1.7 mg/dL (0.55-1.02) H 09/13/17 00:01 Creat Clearance w eGFR 32.08 (>60) 09/13/17 00:01 Calcium 9.3 mg/dL (8.5-10.1) 09/13/17 00:01 Total Bilirubin 0.5 mg/dL (0.2-1.0) D 09/13/17 00:01 AST 18 U/L (15-37) 09/13/17 00:01 ALT 47 U/L (12-78) 09/13/17 00:01 Alkaline Phosphatase 178 U/L (45-117) H 09/13/17 00:01 Total Protein 6.1 g/dl (6.4-8.2) L 09/13/17 00:01 Albumin 3.1 g/dl (3.4-5.0) L 09/13/17 00:01 Imaging - Results X-ray: Image Reviewed Cat Scan: Report Reviewed Problem List - Problems (1) Diabetic keto-acidosis Code(s): E13.10 - OTH DIABETES MELLITUS WITH KETOACIDOSIS WITHOUT COMA Qualifiers: Diabetes mellitus type: due to underlying condition Diabetes mellitus complication detail: with coma Qualified Code(s): E08.11 - Diabetes mellitus due to underlying condition with ketoacidosis with coma (2) Hyperglycemia, unspecified Code(s): R73.9 - HYPERGLYCEMIA, UNSPECIFIED (3) Lactic acid acidosis Code(s): E87.2 - ACIDOSIS (4) Leukocytosis Code(s): D72.829 - ELEVATED WHITE BLOOD CELL COUNT, UNSPECIFIED (5) Renal failure (ARF), acute on chronic Code(s): N17.9 - ACUTE KIDNEY FAILURE, UNSPECIFIED; N18.9 - CHRONIC KIDNEY DISEASE, UNSPECIFIED Qualifiers: Acute renal failure type: unspecified Chronic kidney disease stage: unspecified stage Qualified Code(s): N17.9 - Acute kidney failure, unspecified ; N18.9 - Chronic kidney disease, unspecified; N18.9 - Chronic kidney disease, unspecified (6) Cerebrovascular accident (CVA) Code(s): I63.9 - CEREBRAL INFARCTION, UNSPECIFIED Qualifiers: CVA mechanism: unspecified Qualified Code(s): I63.9 - Cerebral infarction, unspecified Assessment/Plan IDDM now with recurrent DKA Lactic acidosis AGMA in the setting of above GIANCARLO possibly prerenal (Cr 0.7 on 09/10) Leukocytosis possibly reactive AMS in the setting of DKA -cont insulin drip --if BG doesnt fall by 50-70 mg/dl in first hr double insulin infusion until BG drops by 50-70 mg/dl --goal B-200mg/dl until AG closes --if BG fall <70 mg/dl hold insulin x15m and bolus D50 IVP --restart insulin at half prior dose and notify provider -cont IV fluids at 200cc/hr --add D5 once BG reaches 250 mg/dl -potassium replacement --K> 5.5mEq/l no replacement --K 4-5 mEq/l add KCl 20 mEq to each liter of IVF --K 3.5-3.9 mEq/l add KCL 20-40 mEq to each liter of IVF --K 3.1-3.4 mEq/l add KCL 40-60 mEq to each liter of IVF --K <3 mEq/l add KCL 40-80 mEq to each liter of IVF (call provider) -BMP q4hrs until AG closes -NPO -trend lactate -f/u cultures -hold off on abx for now -will need further w/u of mental status if doesn't improve once her DKA is better -Heparin SubQ PPX SALOME Gay Critical Care time : 45 min
[2017-09-13 04:39] LABS: BLOOD UREA NITROGEN 43 mg/dL (7-18); CALCIUM 9.1 mg/dL (8.5-10.1); CHLORIDE 106 mmol/L (98-107); CREATININE 1.6 mg/dL (0.55-1.02)
[2017-09-13 04:47] LABS: SODIUM 142 mmol/L (136-145)
[2017-09-13 04:48] LABS: ANION GAP 31 (8-16); CO2 5 mmol/L (21-32)
[2017-09-13 04:53] LABS: GLUCOSE,RANDOM 787 mg/dL (74-106)
[2017-09-13] MEDS ORDERED: SODIUM CHLORIDE 1,000 ML IV STA (05:20)
--- NOTE | 2017-09-13 05:26 | PN ---
Teaching Attending Note Name of Resident: Juvenal Blanc ATTENDING PHYSICIAN STATEMENT I saw and evaluated the patient. I reviewed the resident's note and discussed the case with the resident. I agree with the resident's findings and plan as documented. SUBJECTIVE: OBJECTIVE: ASSESSMENT AND PLAN: this ia a 47 y/o female with active tobacco use, HLD, poorly controlled IDDM c/ b recent CVA (left sided hemiparesis), gastroparesis who was recently admitted at [facility] with DKA and discharged on 09/11. Was brought to [place] by her on 09/12 for evaluation of AMS. CT done, no new acute processes (known stroke from prior). CXR clear. Pt was started on insulin drip, given 2 g of calcium and transferred to our ICU for further management of recurrent DKA. plan: HAGMA 2/2 DKA: insulin drip IVF at 250cc/hr repeat labs q4 hrs monitor K+ level monitor magnesium repeat lactic acid q2 hrs until it clears repeat VBG stat then q4 hrs when the gap is closed start te patient on long acting insulin hyperglycemia: patient on insulin drip monitor K+ monitor electrolytes FS q15 min Neutrophillia : can be 2/2 DKA will not give the patient any antibiotics until the patient showssigns of infection. opiate addiction restart the patient on the medication to prevent withdrawal hyperkalemia 2/2 to acidosis manage with insulin supplement at 4.5 if he patient is on insulin drip Trend ECG for K+ abnormality . hyponatrimia: psudo due to hyperglycemia corrected 153 on 787 glucose initially 159 on 1298
[2017-09-13] MEDS ORDERED: SODIUM CHLORIDE 1,000 ML IV SCH ×2 (05:45→08:31)
--- NOTE | 2017-09-13 05:50 | HP ---
CHIEF COMPLAINT: AMS PCP: HISTORY OF PRESENT ILLNESS: The patient is altered and unable to give a history. The following is obtained from the medical record The patient is a 47 y/o female w/ PMH active tobacco use, opioid dependence, HLD , DM, recent CVA w/ residual left sided hemiparesis, gastroparesis who was recently admitted to [facility] for DKA and discharged on 09/11. She was brought into [facility] ER by her . The states that he came home to find the patient on the floor and "out of it" In the ED, Patient was able to follow simple commands, but was unable to answer questions appropriately. She was found to be in DKA and transferred to the [facility] ICU for further management. Patient denies chest pain, SOB, Nausea, vomiting, diarrhea, headache or dizziness. ER course was notable for: (1) CT head showing no acute changes (2) CXR WNL (3) Glucose 1298, Lactic acid 3.3, AG 31, pH 7.19 Recent Travel: none PAST MEDICAL HISTORY: see HPI PAST SURGICAL HISTORY: cholecystectomy Social History: Smoking: active smoker w/30 pack year history Alcohol: denies Drugs: denies Family History: non-contributory Allergies No Known Allergies Allergy (Verified 08/15/17 12:12) HOME MEDICATIONS: Home Medications Medication Instructions Recorded Unobtainable [Unobtainable] 09/13/17 REVIEW OF SYSTEMS CONSTITUTIONAL: Absent: fever, chills, diaphoresis, generalized weakness, malaise, loss of appetite, weight change HEENT: Absent: rhinorrhea, nasal congestion, throat pain, throat swelling, difficulty swallowing, mouth swelling, ear pain, eye pain, visual changes CARDIOVASCULAR: Absent: chest pain, syncope, palpitations, irregular heart rate, lightheadedness , peripheral edema RESPIRATORY: Absent: cough, shortness of breath, dyspnea with exertion, orthopnea, wheezing, stridor, hemoptysis GASTROINTESTINAL: Absent: abdominal pain, abdominal distension, nausea, vomiting, diarrhea, constipation, melena, hematochezia GENITOURINARY: Absent: dysuria, frequency, urgency, hesitancy, hematuria, flank pain, genital pain MUSCULOSKELETAL: Absent: myalgia, arthralgia, joint swelling, back pain, neck pain SKIN: Absent: rash, itching, pallor HEMATOLOGIC/IMMUNOLOGIC: Absent: easy bleeding, easy bruising, lymphadenopathy, frequent infections ENDOCRINE: Absent: unexplained weight gain, unexplained weight loss, heat intolerance, cold intolerance NEUROLOGIC: Absent: headache, focal weakness or paresthesias, dizziness, unsteady gait, seizure, bladder or bowel incontinence PSYCHIATRIC: Absent: anxiety, depression, suicidal or homicidal ideation, hallucinations. PHYSICAL EXAMINATION Vital Signs - 24 hr 09/12/17 09/12/17 09/13/17 21:23 23:40 00:15 Temperature 97.4 F L Pulse Rate 110 H Pulse Rate [ 110 H 105 H Apical] Respiratory 18 24 16 Rate Blood Pressure 134/64 Blood Pressure 107/47 96/45 [Arm] O2 Sat by Pulse 100 100 98 Oximetry (%) 09/13/17 09/13/17 09/13/17 01:15 02:15 03:53 Temperature 98.5 F 98.5 F Pulse Rate 94 H Pulse Rate [ 117 H 115 H Apical] Respiratory 20 26 H 16 Rate Blood Pressure 135/61 Blood Pressure 114/49 117/68 [Arm] O2 Sat by Pulse 100 100 Oximetry (%) 09/13/17 09/13/17 04:10 04:14 Temperature Pulse Rate Pulse Rate [ Apical] Respiratory 20 Rate Blood Pressure Blood Pressure [Arm] O2 Sat by Pulse 100 100 Oximetry (%) GENERAL: Patient is sleeping in bed and is minimally arousable. Kausmaul respirations observed. HEAD: Normal with no signs of trauma. EYES: Pupils equal, round and reactive to light, extraocular movements intact, sclera anicteric, conjunctiva clear. No lid lag. LUNGS: Breath sounds equal, clear to auscultation bilaterally. No wheezes, and no crackles. No accessory muscle use. HEART: Regular rhythm, tachycardia, normal S1 and S2 without murmur, rub or gallop. ABDOMEN: Soft, nontender, not distended, normoactive bowel sounds, no guarding, no rebound, no masses. No hepatomegaly or splenomegaly. LOWER EXTREMITIES: 2+ pulses, warm, well-perfused. No calf tenderness. No peripheral edema. NEUROLOGICAL: Cranial nerves II-X intact. Normal speech. SKIN: Warm, dry, normal turgor, no rashes or lesions noted, normal capillary refill. Laboratory Results - last 24 hr 03/17/18 03/17/18 03/17/18 00:01 00:01 00:01 WBC 16.0 H D RBC 3.17 L Hgb 9.5 L Hct 32.1 L MCV 101.3 H D MCH 30.1 MCHC 29.7 L RDW 16.7 H D Plt Count 466 H D MPV 9.5 D Neutrophils % 85.9 H D Lymphocytes % 6.8 L D Monocytes % 6.9 Eosinophils % 0.0 D Basophils % 0.4 VBG pH 7.19 L* POC VBG pCO2 12.1 L* D POC VBG pO2 142.0 H D Mixed VBG HCO3 4.5 L* Sodium 130 L Potassium 7.8 H* Chloride 90 L Carbon Dioxide 5 L Anion Gap 35 H BUN 44 H D Creatinine 1.7 H Creat Clearance w eGFR 32.08 Random Glucose 1298 H* Lactic Acid Calcium 9.3 Total Bilirubin 0.5 D AST 18 ALT 47 Alkaline Phosphatase 178 H Creatine Kinase Creatine Kinase Index CK-MB (CK-2) Troponin I Total Protein 6.1 L Albumin 3.1 L Urine Color Urine Appearance Urine pH Ur Specific [place] Urine Protein Urine Glucose (UA) Urine Ketones Urine Blood Urine Nitrite Urine Bilirubin Urine Urobilinogen Ur Leukocyte Esterase Urine WBC (Auto) Urine RBC (Auto) Ur Epithelial Cells Urine Mucus Opiates Screen Methadone Screen Barbiturate Screen Phencyclidine Screen Ur Amphetamines Screen MDMA (Ecstasy) Screen Benzodiazepines Screen Cocaine Screen U Marijuana (THC) Screen 18 18 09/13/17 00:01 00:01 00:01 WBC RBC Hgb Hct MCV MCH MCHC RDW Plt Count MPV Neutrophils % Lymphocytes % Monocytes % Eosinophils % Basophils % VBG pH POC VBG pCO2 POC VBG pO2 Mixed VBG HCO3 Sodium Potassium Chloride Carbon Dioxide Anion Gap BUN Creatinine Creat Clearance w eGFR Random Glucose Lactic Acid 3.3 H* Calcium Total Bilirubin AST ALT Alkaline Phosphatase Creatine Kinase Creatine Kinase Index CK-MB (CK-2) Troponin I Total Protein Albumin Urine Color Straw Urine Appearance Clear Urine pH 5.0 D Ur Specific [place] 1.022 Urine Protein Negative Urine Glucose (UA) 3+ H Urine Ketones 1+ H Urine Blood 1+ H Urine Nitrite Negative Urine Bilirubin Negative Urine Urobilinogen Negative Ur Leukocyte Esterase Negative Urine WBC (Auto) 1 Urine RBC (Auto) 1 Ur Epithelial Cells Rare Urine Mucus Rare Opiates Screen Positive Methadone Screen Negative Barbiturate Screen Negative Phencyclidine Screen Negative Ur Amphetamines Screen Negative MDMA (Ecstasy) Screen Negative Benzodiazepines Screen Negative Cocaine Screen Negative U Marijuana (THC) Screen Negative 09/13/17 09/13/17 00:01 04:00 WBC RBC Hgb Hct MCV MCH MCHC RDW Plt Count MPV Neutrophils % Lymphocytes % Monocytes % Eosinophils % Basophils % VBG pH POC VBG pCO2 POC VBG pO2 Mixed VBG HCO3 Sodium 142 Potassium Chloride 106 Carbon Dioxide 5 L Anion Gap 31 H BUN 43 H Creatinine 1.6 H Creat Clearance w eGFR Random Glucose 787 H* Lactic Acid Calcium 9.1 Total Bilirubin AST ALT Alkaline Phosphatase Creatine Kinase 227 H Creatine Kinase Index 1.2 CK-MB (CK-2) 2.847 Troponin I < 0.02 Total Protein Albumin Urine Color Urine Appearance Urine pH Ur Specific [place] Urine Protein Urine Glucose (UA) Urine Ketones Urine Blood Urine Nitrite Urine Bilirubin Urine Urobilinogen Ur Leukocyte Esterase Urine WBC (Auto) Urine RBC (Auto) Ur Epithelial Cells Urine Mucus Opiates Screen Methadone Screen Barbiturate Screen Phencyclidine Screen Ur Amphetamines Screen MDMA (Ecstasy) Screen Benzodiazepines Screen Cocaine Screen U Marijuana (THC) Screen ASSESSMENT/PLAN: The patient is a 47 yo f w/ PMH DM & multiple episodes of DKA who is being admitted to the ICU for management of DKA. #DKA -insulin ggt -NS at 250cc/hr -labs q4H -monitor lytes, including K+ -trend lactic acid q2h -VBG now then q4h -consider long acting insulin once gap closed -BGM Q15m #suspected opioid dependence -as per nursing staff and medical record -Monitor for signs of withdrawal #Neutrophillia likely 2/2 DKA -holding ABX until signs of infection #hyperkalemia likley 2/2 acidosis -insulin ggt -supplement at K+ 4.5 -monitor EKG. #pseudo-hyponatrimia 2/2 hyperglycemia -monitor lytes #FEN -NS@250 -monitor lytes as above -NPO #Prophy -Hep SQ 5ku BID #Dispo -admit to ICU Visit type - Emergency Visit Emergency Visit: Yes ED Registration Date: 09/13/17 Care time: The patient presented to the Emergency Department on the above date and was hospitalized for further evaluation of their emergent condition. - New Patient This patient is new to me today: Yes Date on this admission: 09/13/17 - Critical Care Critical Care patient: Yes Total Critical Care Time (in minutes): 50 Critical Care Statement: The care of this patient involved high complexity decision making to prevent further life threatening deterioration of the patient 's condition and/or to evaluate & treat vital organ system(s) failure or risk of failure. Hospitalist Screening - Colonoscopy Questionnaire Colonoscopy Questionnaire: Colonoscopy Questionnaire - Patient: 50 - 75 years old and never had a screening colonoscopy: Unknown History of colon or rectal polyps, or CA: Unknown History of IBD, Crohn's disease or UC: Unknown History of abdominal radiation therapy as a child: Unknown - Relative: 1 with colon or rectal CA, or polyps at age 60 or younger: Unknown Colon or rectal CA diagnosed at age 45 or younger: Unknown Multiple relatives with colon or rectal CA: Unknown - Outcome: Screening Result: Negative Screen
[2017-09-13 06:17] LABS: HEMATOCRIT 27.7 % (32.4-45.2); MCH 29.4 pg (25.7-33.7); MCHC 32.4 g/dl (32.0-36.0); MEAN CELL VOLUME 90.8 fl (80-96); MEAN PLT VOLUME 8.3 fl (7.5-11.1); PLATELET COUNT 468 K/MM3 (134-434); RBC 3.05 M/mm3 (3.60-5.2); RDW 15.2 % (11.6-15.6); WHITE BLOOD COUNT 21.6 K/mm3 (4.0-10.0)
[2017-09-13 06:43] LABS: ANION GAP 24 (8-16); BLOOD UREA NITROGEN 36 mg/dL (7-18); CALCIUM 9.1 mg/dL (8.5-10.1); CHLORIDE 114 mmol/L (98-107); CO2 11 mmol/L (21-32); CREATININE 1.3 mg/dL (0.55-1.02); MAGNESIUM 2.8 mg/dL (1.8-2.4); PHOSPHOROUS 3.6 mg/dL (2.5-4.9); POTASSIUM 4.1 mmol/L (3.5-5.1); SODIUM 149 mmol/L (136-145)
[2017-09-13 06:47] LABS: GLUCOSE,RANDOM 495 mg/dL (74-106)
--- NOTE | 2017-09-13 08:28 | PN ---
Physical Exam: SUBJECTIVE: Patient seen and examined Patient feels lethargic but answers the questions. Denies any fever or chills, no shortness of breath. Unable to tolerate oral food. OBJECTIVE: Vital Signs Temperature 98.5 F 09/13/17 03:53 Pulse Rate 94 H 09/13/17 03:53 Respiratory Rate 20 09/13/17 04:14 Blood Pressure 135/61 09/13/17 03:53 O2 Sat by Pulse Oximetry (%) 100 09/13/17 04:14 GENERAL: The patient is awake, alert, and fully oriented, in no acute distress. HEAD: Normal with no signs of trauma. EYES: PERRL, extraocular movements intact, sclera anicteric, conjunctiva clear. ENT: Ears normal, oropharynx clear without exudates, moist mucous membranes. NECK: Trachea midline, full range of motion, supple. LUNGS: Breath sounds equal, clear to auscultation bilaterally, no wheezes, no crackles, noaccessory muscle use. HEART: regular rate and rhythm, S1, S2 positive, without murmur, rub or gallop. ABDOMEN: Soft, nontender, nondistended, normoactive bowel sounds, no guarding, no rebound, no hepatosplenomegaly, no masses. EXTREMITIES: 2+ pulses, warm, well-perfused, no edema. NEUROLOGICAL: Cranial nerves II through XII grossly intact. Normal speech, gait not observed. PSYCH: Normal mood, normal affect. SKIN: Warm, dry, normal turgor, no rashes or lesions noted CBCD WBC 21.6 K/mm3 (4.0-10.0) H D 09/13/17 06:00 RBC 3.05 M/mm3 (3.60-5.2) L 09/13/17 06:00 Hgb 9.0 GM/dL (10.7-15.3) L 09/13/17 06:00 Hct 27.7 % (32.4-45.2) L 09/13/17 06:00 MCV 90.8 fl (80-96) D 09/13/17 06:00 MCHC 32.4 g/dl (32.0-36.0) 09/13/17 06:00 RDW 15.2 % (11.6-15.6) 09/13/17 06:00 Plt Count 468 K/MM3 (134-434) H 09/13/17 06:00 MPV 8.3 fl (7.5-11.1) D 09/13/17 06:00 CMP Sodium 149 mmol/L (136-145) H 09/13/17 06:00 Potassium 4.1 mmol/L (3.5-5.1) 09/13/17 06:00 Chloride 114 mmol/L (98-107) H 09/13/17 06:00 Carbon Dioxide 11 mmol/L (21-32) L 09/13/17 06:00 Anion Gap 24 (8-16) H 09/13/17 06:00 BUN 36 mg/dL (7-18) H 09/13/17 06:00 Creatinine 1.3 mg/dL (0.55-1.02) H 09/13/17 06:00 Creat Clearance w eGFR 32.08 (>60) 09/13/17 00:01 Random Glucose 495 mg/dL (74-106) H* 09/13/17 06:00 Calcium 9.1 mg/dL (8.5-10.1) 09/13/17 06:00 Total Bilirubin 0.5 mg/dL (0.2-1.0) D 09/13/17 00:01 AST 18 U/L (15-37) 09/13/17 00:01 ALT 47 U/L (12-78) 09/13/17 00:01 Alkaline Phosphatase 178 U/L (45-117) H 09/13/17 00:01 Total Protein 6.1 g/dl (6.4-8.2) L 09/13/17 00:01 Albumin 3.1 g/dl (3.4-5.0) L 09/13/17 00:01 CARDIAC ENZYMES Creatine Kinase 227 IU/L (26-192) H 09/13/17 00:01 Troponin I < 0.02 ng/ml (0.00-0.05) 09/13/17 00:01 Home Medication List Medication Instructions Recorded Confirmed Type Unobtainable [Unobtainable] 09/13/17 09/13/17 History Current Medications Generic Name Dose Route Start Last Admin Trade Name Freq PRN Reason Stop Dose Admin Heparin Sodium (Porcine) 5,000 unit 09/13/17 10:00 09/13/17 10:50 Heparin - SQ 5,000 unit BID [facility] Administration Insulin Human Regular 100 100 mls @ 5.94 mls/hr 09/13/17 02:00 09/13/17 17:25 units/ Sodium Chloride IVPB 0.03 units/kg/hr TITR [facility] 2 mls/hr Protocol Titration 0.1 UNITS/KG/HR Dextrose/Sodium Chloride 1,000 mls @ 125 mls/hr 09/13/17 11:45 09/13/17 11:15 D5-1/2ns - IV 125 mls/hr ASDIR [facility] Administration CXR: Unremarkable ASSESSMENT/PLAN: This patient is a 47 yo f w/ PMH DM & multiple episodes of DKA who is being admitted to the ICU for management of DKA. #Acute DKA on insulin ggt; and on d1/2 NS at 125cc/hr ,Continue IV insulin to maintain blood sugar 120 to 200 CMP in 7 PM, electrolyte replacement as necessary. # Acute Leukocystosis, will panculture her UA, Urine C&S #pseudohyponatrimia due to DKA improved # Acute renal failure US report positive for Diabetic Nephropathy. Improving BUN /CR. # Subacute right cerebral Infarct on Head cT, patient came in with acute stroke on last admission (08/16/2017), MRI report positive for RMCA territory. reviewed carotid doppler no significant stenosis. #suspected opioid dependence monitor for withdrawels DVT Px: Hep SQ Dispo: ICU CC: 35minutes Visit type - Emergency Visit Emergency Visit: Yes ED Registration Date: 09/13/17 Care time: The patient presented to the Emergency Department on the above date and was hospitalized for further evaluation of their emergent condition. - New Patient This patient is new to me today: Yes Date on this admission: 09/13/17 - Critical Care Critical Care patient: Yes Total Critical Care Time (in minutes): 35 Critical Care Statement: The care of this patient involved high complexity decision making to prevent further life threatening deterioration of the patient 's condition and/or to evaluate & treat vital organ system(s) failure or risk of failure. - Discharge Referral Referred to [facility] Med P.C.: No
[2017-09-13 09:38] LABS: PLATELET ESTIMATE SLT INCREASE
[2017-09-13] MEDS: HEPARIN NA (PORCINE) 5,000 UNITS/ML 1ML VIAL SQ SCH ×2 (10:50→22:00)
[2017-09-13 11:01] LABS: URINE APPEARANCE CLOUDY; URINE BILIRUBIN NEGATIVE (NEGATIVE); URINE BLOOD 2+ (NEGATIVE); URINE COLOR YELLOW; URINE GLUCOSE (UA) 2+ (NEGATIVE); URINE KETONE 1+ (NEGATIVE); URINE NITRITE NEGATIVE (NEGATIVE); URINE UROBILINOGEN NEGATIVE mg/dL (0.2-1.0)
[2017-09-13 11:13] LABS: URINE LEUK ESTERASE 1+ (NEGATIVE); URINE PROTEIN 1+ (NEGATIVE)
[2017-09-13 11:15] LABS: CALCIUM OXALATE CRYSTALS RARE /hpf (NONE SEEN); EPI CELLS RARE /HPF (FEW); URINE BACTERIA FEW /hpf (NONE SEEN); URINE HYALINE CAST 2 /lpf; URINE MUCUS RARE; YEAST MANY
[2017-09-13] MEDS ORDERED: DEXTROSE 5%-0.45% SALINE 1,000 ML IV SCH (11:45)
[2017-09-13 12:40] LABS: ALBUMIN 2.5 g/dl (3.4-5.0); ANION GAP 10 (8-16); BILIRUBIN,TOTAL 0.2 mg/dL (0.2-1.0); BLOOD UREA NITROGEN 29 mg/dL (7-18); CALCIUM 8.8 mg/dL (8.5-10.1); CHLORIDE 120 mmol/L (98-107); CO2 23 mmol/L (21-32); GLUCOSE,RANDOM 130 mg/dL (74-106); MAGNESIUM 2.5 mg/dL (1.8-2.4); PHOSPHOROUS 3.2 mg/dL (2.5-4.9); POTASSIUM 4.4 mmol/L (3.5-5.1); SGOT/AST 18 U/L (15-37); SGPT/ALT 40 U/L (12-78); SODIUM 153 mmol/L (136-145); TOT PROT 5.5 g/dl (6.4-8.2)
[2017-09-13 12:42] LABS: ALK PHOS 141 U/L (45-117)
--- NOTE | 2017-09-13 15:18 | CONSULT ---
Consult Consult Specialty:: Endocrinology Referred by:: Dr Mendieta Reason for Consultation:: DKA - History of Present Illness Chief Complaint: AMS History of Present Illness: This is a 47 y/o female with h/o active tobacco use, opioid dependence, HLD, T1DM with multiple admissions for DKA, recent CVA w/ residual left sided hemiparesis, gastroparesis who was recently admitted to [facility] for DKA and discharged on 09/11. She was brought into [place] ER by her who stated that he came home to find the patient on the floor and "out of it" In the ED, Patient was able to follow simple commands, but was unable to answer questions appropriately. She was found to be in DKA and transferred to the [facility] ICU for further management. Pt currently in ICU on Insulin drip , lethargic and unable to five history. Chart reviewed. - History Source History Provided By: Medical Record - Past Medical History [employer]: Yes: CVA (right MCA), Migraine Gastrointestinal: Yes: Other (Gastroparesis) ...LMP: 04/14/13 Musculoskeletal: Yes: Chronic low back pain Endocrine: Yes: Diabetes Mellitus Additional Medical History: dka in the past - Past Surgical History Past Surgical History: Yes: Cholecystectomy - Alcohol/Substance Use Hx Alcohol Use: No History of Substance Use: reports: None - Smoking History Smoking history: Current every day smoker Have you smoked in the past 12 months: Yes Aproximately how many cigarettes per day: 20 - Social History ADL: Independent History of Recent Travel: No Home Medications - Allergies Allergies/Adverse Reactions: Allergies Allergy/AdvReac Type Severity Reaction Status Date / Time No Known Allergies Allergy Verified 08/15/17 12:12 - Home Medications Home Medications: Ambulatory Orders Unobtainable [Unobtainable] 09/13/17 Family Disease History - Family Disease History Family Disease History: Heart Disease: Father (cad) Review of Systems Unable to obtain ROS, reason: AMS Physical Exam Vital Signs: Vital Signs Temperature 98.7 F 09/13/17 10:00 Pulse Rate 102 H 09/13/17 12:00 Respiratory Rate 16 09/13/17 12:00 Blood Pressure 101/49 09/13/17 12:00 O2 Sat by Pulse Oximetry (%) 100 09/13/17 09:00 Constitutional: Yes: No Distress, Calm Eyes: Yes: Conjunctiva Clear HENT: Yes: Atraumatic, Normocephalic Neck: Yes: Supple, Trachea Midline Cardiovascular: Yes: Regular Rate and Rhythm Respiratory: Yes: Regular, CTA Bilaterally Gastrointestinal: Yes: Normal Bowel Sounds, Soft Musculoskeletal: Yes: WNL Extremities: Yes: WNL Edema: No Neurological: Yes: Lethargy (Unable to do Neuro exam) Labs: CBC, BMP 09/13/17 06:00 09/13/17 12:10 Problem List - Problems (1) Diabetic keto-acidosis Code(s): E13.10 - OTH DIABETES MELLITUS WITH KETOACIDOSIS WITHOUT COMA Qualifiers: Diabetes mellitus type: due to underlying condition Diabetes mellitus complication detail: with coma Qualified Code(s): E08.11 - Diabetes mellitus due to underlying condition with ketoacidosis with coma (2) Hyperglycemia, unspecified Code(s): R73.9 - HYPERGLYCEMIA, UNSPECIFIED (3) Leukocytosis Code(s): D72.829 - ELEVATED WHITE BLOOD CELL COUNT, UNSPECIFIED Assessment/Plan AP DKA: Gap closed, acidosis resolved H/O CVA Pt still lethargic, unable tolerate P.o intake Continue D5 1/2NS Continue IV insulin to maintain blood sugar 120 to 200 CMP in 7 PM electrolyte replacement as necessary Will f/u
--- NOTE | 2017-09-13 18:37 | EKG ---
Test Reason : Blood Pressure : / mmHG Vent. Rate : 139 BPM Atrial Rate : 114 BPM P-R Int : 126 ms QRS Dur : 104 ms QT Int : 328 ms P-R-T Axes : 073 082 038 degrees QTc Int : 499 ms SINUS TACHYCARDIA WITH FREQUENT and consecutive PREMATURE VENTRICULAR COMPLEXES AND FUSION COMPLEXES ABNORMAL ECG WHEN COMPARED WITH ECG OF 05-SEP-2017 16:23, FUSION COMPLEXES ARE NOW PRESENT PREMATURE VENTRICULAR COMPLEXES ARE NOW PRESENT VENT. RATE HAS INCREASED BY 47 BPM T WAVE INVERSION NO LONGER EVIDENT IN ANTERIOR LEADS Confirmed by AMY MATHEW MD ([id number]) on 09/13/2017 6:37:21 PM Referred By: MD AYALA Confirmed By:AMY MATHEW MD
[2017-09-13] MEDS ORDERED: CEFTRIAXONE IN IS-OSM DEXTROSE 2 GM/50 ML BAG IVPB ONE (20:00)
[2017-09-13] MEDS ORDERED: CLINDAMYCIN 600MG PREMIX IVPB 600 MG/50 ML BAG IVPB ONE (20:30)
[2017-09-13 20:44] LABS: ALBUMIN 2.4 g/dl (3.4-5.0); ALK PHOS 135 U/L (45-117); ANION GAP 7 (8-16); BILIRUBIN,TOTAL 0.2 mg/dL (0.2-1.0); BLOOD UREA NITROGEN 24 mg/dL (7-18); CHLORIDE 122 mmol/L (98-107); CO2 22 mmol/L (21-32); CREATININE 0.8 mg/dL (0.55-1.02); GLUCOSE,RANDOM 151 mg/dL (74-106); POTASSIUM 3.9 mmol/L (3.5-5.1); SGOT/AST 20 U/L (15-37); SGPT/ALT 34 U/L (12-78); SODIUM 151 mmol/L (136-145)
[2017-09-13] MEDS ORDERED: CEFTRIAXONE 2 GM in DEXTROSE 5%-WATER - 100 ML IVPB ONE (21:00)
[2017-09-13] MEDS ORDERED: HEMOQUE TEST 1 EACH EACH ONE (22:43)
[2017-09-14 05:57] LABS: BASO % 0.3 % (0-2.0); EOS % 0.2 % (0-4.5); HEMATOCRIT 24.7 % (32.4-45.2); HEMOGLOBIN 8.1 GM/dL (10.7-15.3); LYMPH % 19.4 % (8-40); MCH 29.3 pg (25.7-33.7); MCHC 32.9 g/dl (32.0-36.0); MEAN PLT VOLUME 7.9 fl (7.5-11.1); NEUT % 72.1 % (42.8-82.8); PLATELET COUNT 382 K/MM3 (134-434); RBC 2.78 M/mm3 (3.60-5.2); RDW 15.6 % (11.6-15.6); WHITE BLOOD COUNT 13.9 K/mm3 (4.0-10.0)
[2017-09-14 06:21] LABS: ALK PHOS 110 U/L (45-117); ANION GAP 11 (8-16); BILIRUBIN,TOTAL 0.1 mg/dL (0.2-1.0); BLOOD UREA NITROGEN 17 mg/dL (7-18); CALCIUM 7.9 mg/dL (8.5-10.1); CHLORIDE 117 mmol/L (98-107); CO2 23 mmol/L (21-32); CREATININE 0.6 mg/dL (0.55-1.02); GLUCOSE,RANDOM 107 mg/dL (74-106); MAGNESIUM 2.1 mg/dL (1.8-2.4); PHOSPHOROUS 1.4 mg/dL (2.5-4.9); POTASSIUM 3.3 mmol/L (3.5-5.1); SGOT/AST 23 U/L (15-37); SGPT/ALT 30 U/L (12-78); SODIUM 151 mmol/L (136-145); TOT PROT 4.6 g/dl (6.4-8.2)
[2017-09-14] MEDS: INSULIN REGULAR 100 UNITS in SODIUM CHLORIDE 99 ML IVPB SCH (08:00)
--- NOTE | 2017-09-14 09:14 | PN ---
Progress Note (short form) - Note Progress Note: Patient seen and examined in the ICU. Awake and alert. Generalized weakness and fatigue. Remains on IV Insulin drip. AG improving. No CP or SOB. Intake & Output 09/11/17 09/12/17 09/13/17 09/14/17 23:59 23:59 23:59 23:59 Intake Total 5034 1150 Output Total 2700 Balance 2334 1150 Weight 130 lb 15.273 oz 119 lb 9.6 oz 120 lb 4 oz Last Vital Signs Temp Pulse Resp BP Pulse Ox 98.7 F 78 22 127/88 100 09/14/17 02:00 09/14/17 07:37 09/14/17 07:37 09/14/17 07:37 09/14/17 07:37 Active Medications Clindamycin HCl (Cleocin -) 450 mg PO TID [facility] Heparin Sodium (Porcine) (Heparin -) 5,000 unit SQ BID [facility] Last Admin: 09/13/17 22:00 Dose: 5,000 unit Insulin Detemir (Levemir Vial) 12 units SQ ONCE ONE Stop: 09/14/17 09:16 Oxycodone/Acetaminophen (Percocet 5/325 -) 1 combo PO Q4HPO PRN PRN Reason: PAIN LEVEL 6-10 Potassium Chloride (Potassium Chloride 20 Meq Premix Ivpb -) 20 meq IVPB Q60M [facility] Stop: 09/14/17 11:01 Eyes: Yes: (-) Pallor HENT: Yes: Other (no upper teeth) Cardiovascular: Yes: Regular Rate and Rhythm, S1, S2 Respiratory: Yes: Clear Gastrointestinal: Yes: Normal Bowel Sounds, Soft Edema: No Neurological: Yes: Awake and alert, non-focal Labs: Laboratory Results - last 24 hr 09/13/17 09/13/17 09/13/17 06:00 08:59 09:56 WBC RBC Hgb Hct MCV MCH MCHC RDW Plt Count MPV Neutrophils % Neutrophils % (Manual) 87.0 H Band Neutrophils % 2.0 Lymphocytes % Lymphocytes % (Manual) 8.0 D Monocytes % Monocytes % (Manual) 3 L Eosinophils % Basophils % Hypochromia 1+ Platelet Estimate Slt increase Platelet Comment No clotting detected Sodium Potassium Chloride Carbon Dioxide Anion Gap BUN Creatinine Creat Clearance w eGFR POC Glucometer 357.22771 273.07799 Random Glucose Calcium Phosphorus Magnesium Total Bilirubin AST ALT Alkaline Phosphatase Total Protein Albumin Urine Color Urine Appearance Urine pH Ur Specific [place] Urine Protein Urine Glucose (UA) Urine Ketones Urine Blood Urine Nitrite Urine Bilirubin Urine Urobilinogen Ur Leukocyte Esterase Urine WBC (Auto) Urine RBC (Auto) Ur Epithelial Cells Calcium Oxalate Crystal Urine Bacteria Hyaline Casts Urine Mucus Urine Yeast 09/13/17 09/13/17 09/13/17 10:00 11:15 12:10 WBC RBC Hgb Hct MCV MCH MCHC RDW Plt Count MPV Neutrophils % Neutrophils % (Manual) Band Neutrophils % Lymphocytes % Lymphocytes % (Manual) Monocytes % Monocytes % (Manual) Eosinophils % Basophils % Hypochromia Platelet Estimate Platelet Comment Sodium 153 H Potassium 4.4 Chloride 120 H Carbon Dioxide 23 Anion Gap 10 BUN 29 H Creatinine 1.0 Creat Clearance w eGFR 59.18 POC Glucometer 196.55228 Random Glucose 130 H Calcium 8.8 Phosphorus 3.2 Magnesium 2.5 H Total Bilirubin 0.2 D AST 18 ALT 40 Alkaline Phosphatase 141 H Total Protein 5.5 L Albumin 2.5 L Urine Color Yellow Urine Appearance Cloudy Urine pH 5.0 Ur Specific [place] 1.021 Urine Protein 1+ H Urine Glucose (UA) 2+ H Urine Ketones 1+ H Urine Blood 2+ H Urine Nitrite Negative Urine Bilirubin Negative Urine Urobilinogen Negative Ur Leukocyte Esterase 1+ H Urine WBC (Auto) 18 Urine RBC (Auto) 4 Ur Epithelial Cells Rare Calcium Oxalate Crystal Rare Urine Bacteria Few Hyaline Casts 2 Urine Mucus Rare Urine Yeast Many 09/13/17 09/13/17 09/13/17 12:22 13:08 14:25 WBC RBC Hgb Hct MCV MCH MCHC RDW Plt Count MPV Neutrophils % Neutrophils % (Manual) Band Neutrophils % Lymphocytes % Lymphocytes % (Manual) Monocytes % Monocytes % (Manual) Eosinophils % Basophils % Hypochromia Platelet Estimate Platelet Comment Sodium Potassium Chloride Carbon Dioxide Anion Gap BUN Creatinine Creat Clearance w eGFR POC Glucometer 165.17023 155.01263 178.62919 Random Glucose Calcium Phosphorus Magnesium Total Bilirubin AST ALT Alkaline Phosphatase Total Protein Albumin Urine Color Urine Appearance Urine pH Ur Specific [place] Urine Protein Urine Glucose (UA) Urine Ketones Urine Blood Urine Nitrite Urine Bilirubin Urine Urobilinogen Ur Leukocyte Esterase Urine WBC (Auto) Urine RBC (Auto) Ur Epithelial Cells Calcium Oxalate Crystal Urine Bacteria Hyaline Casts Urine Mucus Urine Yeast 09/13/17 09/13/17 09/13/17 15:15 17:22 18:41 WBC RBC Hgb Hct MCV MCH MCHC RDW Plt Count MPV Neutrophils % Neutrophils % (Manual) Band Neutrophils % Lymphocytes % Lymphocytes % (Manual) Monocytes % Monocytes % (Manual) Eosinophils % Basophils % Hypochromia Platelet Estimate Platelet Comment Sodium Potassium Chloride Carbon Dioxide Anion Gap BUN Creatinine Creat Clearance w eGFR POC Glucometer 188.91319 223.98622 208.24715 Random Glucose Calcium Phosphorus Magnesium Total Bilirubin AST ALT Alkaline Phosphatase Total Protein Albumin Urine Color Urine Appearance Urine pH Ur Specific [place] Urine Protein Urine Glucose (UA) Urine Ketones Urine Blood Urine Nitrite Urine Bilirubin Urine Urobilinogen Ur Leukocyte Esterase Urine WBC (Auto) Urine RBC (Auto) Ur Epithelial Cells Calcium Oxalate Crystal Urine Bacteria Hyaline Casts Urine Mucus Urine Yeast 09/13/17 09/13/17 09/13/17 19:45 20:00 22:55 WBC RBC Hgb Hct MCV MCH MCHC RDW Plt Count MPV Neutrophils % Neutrophils % (Manual) Band Neutrophils % Lymphocytes % Lymphocytes % (Manual) Monocytes % Monocytes % (Manual) Eosinophils % Basophils % Hypochromia Platelet Estimate Platelet Comment Sodium 151 H Potassium 3.9 Chloride 122 H Carbon Dioxide 22 Anion Gap 7 L BUN 24 H Creatinine 0.8 Creat Clearance w eGFR > 60 POC Glucometer 194.09539 144.89518 Random Glucose 151 H Calcium 8.0 L Phosphorus Magnesium Total Bilirubin 0.2 AST 20 ALT 34 Alkaline Phosphatase 135 H Total Protein 5.0 L Albumin 2.4 L Urine Color Urine Appearance Urine pH Ur Specific [place] Urine Protein Urine Glucose (UA) Urine Ketones Urine Blood Urine Nitrite Urine Bilirubin Urine Urobilinogen Ur Leukocyte Esterase Urine WBC (Auto) Urine RBC (Auto) Ur Epithelial Cells Calcium Oxalate Crystal Urine Bacteria Hyaline Casts Urine Mucus Urine Yeast 09/14/17 09/14/17 09/14/17 01:08 03:16 05:02 WBC 13.9 H D RBC 2.78 L Hgb 8.1 L Hct 24.7 L MCV 89.0 MCH 29.3 MCHC 32.9 RDW 15.6 Plt Count 382 MPV 7.9 Neutrophils % 72.1 Neutrophils % (Manual) Band Neutrophils % Lymphocytes % 19.4 D Lymphocytes % (Manual) Monocytes % 8.0 Monocytes % (Manual) Eosinophils % 0.2 D Basophils % 0.3 Hypochromia Platelet Estimate Platelet Comment Sodium Potassium Chloride Carbon Dioxide Anion Gap BUN Creatinine Creat Clearance w eGFR POC Glucometer 140.04573 122.88084 Random Glucose Calcium Phosphorus Magnesium Total Bilirubin AST ALT Alkaline Phosphatase Total Protein Albumin Urine Color Urine Appearance Urine pH Ur Specific [place] Urine Protein Urine Glucose (UA) Urine Ketones Urine Blood Urine Nitrite Urine Bilirubin Urine Urobilinogen Ur Leukocyte Esterase Urine WBC (Auto) Urine RBC (Auto) Ur Epithelial Cells Calcium Oxalate Crystal Urine Bacteria Hyaline Casts Urine Mucus Urine Yeast 09/14/17 09/14/17 09/14/17 05:02 05:24 06:33 WBC RBC Hgb Hct MCV MCH MCHC RDW Plt Count MPV Neutrophils % Neutrophils % (Manual) Band Neutrophils % Lymphocytes % Lymphocytes % (Manual) Monocytes % Monocytes % (Manual) Eosinophils % Basophils % Hypochromia Platelet Estimate Platelet Comment Sodium 151 H Potassium 3.3 L Chloride 117 H Carbon Dioxide 23 Anion Gap 11 BUN 17 Creatinine 0.6 Creat Clearance w eGFR > 60 POC Glucometer 158.38114 131.16304 Random Glucose 107 H Calcium 7.9 L Phosphorus 1.4 L Magnesium 2.1 Total Bilirubin 0.1 L D AST 23 ALT 30 Alkaline Phosphatase 110 Total Protein 4.6 L Albumin 2.0 L Urine Color Urine Appearance Urine pH Ur Specific [place] Urine Protein Urine Glucose (UA) Urine Ketones Urine Blood Urine Nitrite Urine Bilirubin Urine Urobilinogen Ur Leukocyte Esterase Urine WBC (Auto) Urine RBC (Auto) Ur Epithelial Cells Calcium Oxalate Crystal Urine Bacteria Hyaline Casts Urine Mucus Urine Yeast 09/14/17 08:22 WBC RBC Hgb Hct MCV MCH MCHC RDW Plt Count MPV Neutrophils % Neutrophils % (Manual) Band Neutrophils % Lymphocytes % Lymphocytes % (Manual) Monocytes % Monocytes % (Manual) Eosinophils % Basophils % Hypochromia Platelet Estimate Platelet Comment Sodium Potassium Chloride Carbon Dioxide Anion Gap BUN Creatinine Creat Clearance w eGFR POC Glucometer 176.62128 Random Glucose Calcium Phosphorus Magnesium Total Bilirubin AST ALT Alkaline Phosphatase Total Protein Albumin Urine Color Urine Appearance Urine pH Ur Specific [place] Urine Protein Urine Glucose (UA) Urine Ketones Urine Blood Urine Nitrite Urine Bilirubin Urine Urobilinogen Ur Leukocyte Esterase Urine WBC (Auto) Urine RBC (Auto) Ur Epithelial Cells Calcium Oxalate Crystal Urine Bacteria Hyaline Casts Urine Mucus Urine Yeast Problem List - Problems (1) Diabetic keto-acidosis Code(s): E13.10 - OTH DIABETES MELLITUS WITH KETOACIDOSIS WITHOUT COMA Qualifiers: Diabetes mellitus type: due to underlying condition Diabetes mellitus complication detail: with coma Qualified Code(s): E08.11 - Diabetes mellitus due to underlying condition with ketoacidosis with coma (2) Hyperglycemia, unspecified Code(s): R73.9 - HYPERGLYCEMIA, UNSPECIFIED (3) Lactic acid acidosis Code(s): E87.2 - ACIDOSIS (4) Leukocytosis Code(s): D72.829 - ELEVATED WHITE BLOOD CELL COUNT, UNSPECIFIED (5) Renal failure (ARF), acute on chronic Code(s): N17.9 - ACUTE KIDNEY FAILURE, UNSPECIFIED; N18.9 - CHRONIC KIDNEY DISEASE, UNSPECIFIED Qualifiers: Acute renal failure type: unspecified Chronic kidney disease stage: unspecified stage Qualified Code(s): N17.9 - Acute kidney failure, unspecified ; N18.9 - Chronic kidney disease, unspecified; N18.9 - Chronic kidney disease, unspecified (6) Cerebrovascular accident (CVA) Code(s): I63.9 - CEREBRAL INFARCTION, UNSPECIFIED Qualifiers: CVA mechanism: unspecified Qualified Code(s): I63.9 - Cerebral infarction, unspecified Assessment/Plan IDDM now with recurrent DKA Lactic acidosis AGMA in the setting of above GIANCARLO possibly prerenal (Cr 0.7 on 09/10) Leukocytosis possibly reactive AMS in the setting of DKA Glycemic control per Endocrine D/C insulin drip PO as tolerated IVF Follow BGM Noted Clindamycin Percocet for pain control ordered Dr Otero Critical care time spent in reviewing chart, evaluating patient and formulating plan - 36 minutes.
[2017-09-14] MEDS ORDERED: INSULIN DETEMIR 100 UNITS/ML MDV SQ ONE (09:15)
[2017-09-14] MEDS ORDERED: ACETAMINOPHEN 325 MG TABLET (FP) ONE (09:19)
[2017-09-14] MEDS ORDERED: oxyCODONE HCL 5 MG TABLET ONE (09:20)
[2017-09-14] MEDS: POTASSIUM CHLORIDE 20 MEQ PREMIX IVPB 100 ML IVPB SCH ×3 (09:26→11:43)
[2017-09-14] MEDS: HEPARIN NA (PORCINE) 5,000 UNITS/ML 1ML VIAL SQ SCH ×2 (09:35→22:09)
[2017-09-14] MEDS ORDERED: ACETAMINOPHEN 325 MG TABLET (FP) PO PRN (09:42)
[2017-09-14] MEDS ORDERED: oxyCODONE HCL 5 MG TABLET PO PRN (09:42)
--- NOTE | 2017-09-14 09:49 | PN ---
Physical Exam: SUBJECTIVE: Patient seen and examined, complains of chronic lower back pain and leg pains. Reports having pain in her gums. OBJECTIVE: Vital Signs Period Temp Pulse Resp BP Sys/Rapp Pulse Ox Last 24 Hr 98.7 F-100.8 F 78-106 12-22 101-136/49-88 100-100 GENERAL: The patient is awake, alert, and fully oriented, in no acute distress. HEAD: Normal with no signs of trauma. EYES: PERRL, extraocular movements intact, sclera anicteric, conjunctiva clear. No ptosis. ENT: Ears normal, nares patent, oropharynx clear without exudates, moist mucous membranes. Mouth: oral cavity examined, tenderness along upper frontal gum line, very few teeth remaining, all with significant cavitations NECK: Trachea midline, full range of motion, supple. LUNGS: Breath sounds equal, clear to auscultation bilaterally, no wheezes, no crackles, no accessory muscle use. HEART: Regular rate and rhythm, S1, S2 without murmur, rub or gallop. ABDOMEN: Soft, nontender, nondistended, normoactive bowel sounds, no guarding, no rebound, no hepatosplenomegaly, no masses. EXTREMITIES: 2+ pulses, warm, well-perfused, no edema. NEUROLOGICAL: Cranial nerves II through XII grossly intact. Normal speech, gait not observed. PSYCH: Normal mood, normal affect. SKIN: Warm, dry, normal turgor, no rashes or lesions noted Laboratory Results - last 24 hr 09/13/17 09/13/17 09/13/17 09:56 10:00 11:15 WBC RBC Hgb Hct MCV MCH MCHC RDW Plt Count MPV Neutrophils % Lymphocytes % Monocytes % Eosinophils % Basophils % Sodium Potassium Chloride Carbon Dioxide Anion Gap BUN Creatinine Creat Clearance w eGFR POC Glucometer 273.83422 196.20011 Random Glucose Calcium Phosphorus Magnesium Total Bilirubin AST ALT Alkaline Phosphatase Total Protein Albumin Urine Color Yellow Urine Appearance Cloudy Urine pH 5.0 Ur Specific [place] 1.021 Urine Protein 1+ H Urine Glucose (UA) 2+ H Urine Ketones 1+ H Urine Blood 2+ H Urine Nitrite Negative Urine Bilirubin Negative Urine Urobilinogen Negative Ur Leukocyte Esterase 1+ H Urine WBC (Auto) 18 Urine RBC (Auto) 4 Ur Epithelial Cells Rare Calcium Oxalate Crystal Rare Urine Bacteria Few Hyaline Casts 2 Urine Mucus Rare Urine Yeast Many 09/13/17 09/13/17 09/13/17 12:10 12:22 13:08 WBC RBC Hgb Hct MCV MCH MCHC RDW Plt Count MPV Neutrophils % Lymphocytes % Monocytes % Eosinophils % Basophils % Sodium 153 H Potassium 4.4 Chloride 120 H Carbon Dioxide 23 Anion Gap 10 BUN 29 H Creatinine 1.0 Creat Clearance w eGFR 59.18 POC Glucometer 165.35963 155.25770 Random Glucose 130 H Calcium 8.8 Phosphorus 3.2 Magnesium 2.5 H Total Bilirubin 0.2 D AST 18 ALT 40 Alkaline Phosphatase 141 H Total Protein 5.5 L Albumin 2.5 L Urine Color Urine Appearance Urine pH Ur Specific [place] Urine Protein Urine Glucose (UA) Urine Ketones Urine Blood Urine Nitrite Urine Bilirubin Urine Urobilinogen Ur Leukocyte Esterase Urine WBC (Auto) Urine RBC (Auto) Ur Epithelial Cells Calcium Oxalate Crystal Urine Bacteria Hyaline Casts Urine Mucus Urine Yeast 09/13/17 09/13/17 09/13/17 14:25 15:15 17:22 WBC RBC Hgb Hct MCV MCH MCHC RDW Plt Count MPV Neutrophils % Lymphocytes % Monocytes % Eosinophils % Basophils % Sodium Potassium Chloride Carbon Dioxide Anion Gap BUN Creatinine Creat Clearance w eGFR POC Glucometer 178.54495 188.19064 223.44351 Random Glucose Calcium Phosphorus Magnesium Total Bilirubin AST ALT Alkaline Phosphatase Total Protein Albumin Urine Color Urine Appearance Urine pH Ur Specific [place] Urine Protein Urine Glucose (UA) Urine Ketones Urine Blood Urine Nitrite Urine Bilirubin Urine Urobilinogen Ur Leukocyte Esterase Urine WBC (Auto) Urine RBC (Auto) Ur Epithelial Cells Calcium Oxalate Crystal Urine Bacteria Hyaline Casts Urine Mucus Urine Yeast 09/13/17 09/13/17 09/13/17 18:41 19:45 20:00 WBC RBC Hgb Hct MCV MCH MCHC RDW Plt Count MPV Neutrophils % Lymphocytes % Monocytes % Eosinophils % Basophils % Sodium 151 H Potassium 3.9 Chloride 122 H Carbon Dioxide 22 Anion Gap 7 L BUN 24 H Creatinine 0.8 Creat Clearance w eGFR > 60 POC Glucometer 208.53385 194.59448 Random Glucose 151 H Calcium 8.0 L Phosphorus Magnesium Total Bilirubin 0.2 AST 20 ALT 34 Alkaline Phosphatase 135 H Total Protein 5.0 L Albumin 2.4 L Urine Color Urine Appearance Urine pH Ur Specific [place] Urine Protein Urine Glucose (UA) Urine Ketones Urine Blood Urine Nitrite Urine Bilirubin Urine Urobilinogen Ur Leukocyte Esterase Urine WBC (Auto) Urine RBC (Auto) Ur Epithelial Cells Calcium Oxalate Crystal Urine Bacteria Hyaline Casts Urine Mucus Urine Yeast 09/13/17 09/14/17 09/14/17 22:55 01:08 03:16 WBC RBC Hgb Hct MCV MCH MCHC RDW Plt Count MPV Neutrophils % Lymphocytes % Monocytes % Eosinophils % Basophils % Sodium Potassium Chloride Carbon Dioxide Anion Gap BUN Creatinine Creat Clearance w eGFR POC Glucometer 144.18803 140.16005 122.88369 Random Glucose Calcium Phosphorus Magnesium Total Bilirubin AST ALT Alkaline Phosphatase Total Protein Albumin Urine Color Urine Appearance Urine pH Ur Specific [place] Urine Protein Urine Glucose (UA) Urine Ketones Urine Blood Urine Nitrite Urine Bilirubin Urine Urobilinogen Ur Leukocyte Esterase Urine WBC (Auto) Urine RBC (Auto) Ur Epithelial Cells Calcium Oxalate Crystal Urine Bacteria Hyaline Casts Urine Mucus Urine Yeast 09/14/17 09/14/17 09/14/17 05:02 05:02 05:24 WBC 13.9 H D RBC 2.78 L Hgb 8.1 L Hct 24.7 L MCV 89.0 MCH 29.3 MCHC 32.9 RDW 15.6 Plt Count 382 MPV 7.9 Neutrophils % 72.1 Lymphocytes % 19.4 D Monocytes % 8.0 Eosinophils % 0.2 D Basophils % 0.3 Sodium 151 H Potassium 3.3 L Chloride 117 H Carbon Dioxide 23 Anion Gap 11 BUN 17 Creatinine 0.6 Creat Clearance w eGFR > 60 POC Glucometer 158.53086 Random Glucose 107 H Calcium 7.9 L Phosphorus 1.4 L Magnesium 2.1 Total Bilirubin 0.1 L D AST 23 ALT 30 Alkaline Phosphatase 110 Total Protein 4.6 L Albumin 2.0 L Urine Color Urine Appearance Urine pH Ur Specific [place] Urine Protein Urine Glucose (UA) Urine Ketones Urine Blood Urine Nitrite Urine Bilirubin Urine Urobilinogen Ur Leukocyte Esterase Urine WBC (Auto) Urine RBC (Auto) Ur Epithelial Cells Calcium Oxalate Crystal Urine Bacteria Hyaline Casts Urine Mucus Urine Yeast 09/14/17 09/14/17 06:33 08:22 WBC RBC Hgb Hct MCV MCH MCHC RDW Plt Count MPV Neutrophils % Lymphocytes % Monocytes % Eosinophils % Basophils % Sodium Potassium Chloride Carbon Dioxide Anion Gap BUN Creatinine Creat Clearance w eGFR POC Glucometer 131.36546 176.37026 Random Glucose Calcium Phosphorus Magnesium Total Bilirubin AST ALT Alkaline Phosphatase Total Protein Albumin Urine Color Urine Appearance Urine pH Ur Specific [place] Urine Protein Urine Glucose (UA) Urine Ketones Urine Blood Urine Nitrite Urine Bilirubin Urine Urobilinogen Ur Leukocyte Esterase Urine WBC (Auto) Urine RBC (Auto) Ur Epithelial Cells Calcium Oxalate Crystal Urine Bacteria Hyaline Casts Urine Mucus Urine Yeast Active Medications Generic Name Dose Route Start Last Admin Trade Name Freq PRN Reason Stop Dose Admin Clindamycin HCl 450 mg 09/14/17 09:15 Cleocin - PO TID [facility] Heparin Sodium (Porcine) 5,000 unit 09/13/17 10:00 09/14/17 09:35 Heparin - SQ 5,000 unit BID [facility] Administration Oxycodone/Acetaminophen 1 combo 09/14/17 09:02 09/14/17 09:22 Percocet 5/325 - PO 1 combo Q4HPO PRN Administration PAIN LEVEL 6-10 Potassium Chloride 20 meq 09/14/17 09:00 09/14/17 09:26 Potassium Chloride 20 Meq Premix Ivpb - IVPB 09/14/17 11:01 20 meq Q60M [facility] Administration ASSESSMENT/PLAN: 47F with intial presentation AGAP metabolic acidosis 2/2 DKA, after recent discharge for DKA, she is now resolved AGAP and DKA improved. Mentation now improved. -start diet as tolerated OOBTC - remove perez -start levemir 12U now, stop insulin gtt and D5NS; will likely need to increase levemir dose as her usual dose is 1.5U/hr insulin pump with additional coverage for meals aggressively replete potassium Endocrine followup Gingivitis-complains of significant gum pain, and there is tenderness and erythema in areas -clindamycin, she will need dental evaluation, which can be done outpatient Opiate dependance for chronic back pains confirm meds with her pharmacy and reinitiate Problem List - Problems (1) Gingivitis Code(s): K05.10 - CHRONIC GINGIVITIS, PLA[place] INDUCED (2) Diabetic keto-acidosis Code(s): E13.10 - OTH DIABETES MELLITUS WITH KETOACIDOSIS WITHOUT COMA Qualifiers: Diabetes mellitus type: due to underlying condition Diabetes mellitus complication detail: with coma Qualified Code(s): E08.11 - Diabetes mellitus due to underlying condition with ketoacidosis with coma (3) Hypokalemia Code(s): E87.6 - HYPOKALEMIA (4) Diabetes mellitus, insulin dependent (IDDM), uncontrolled Code(s): E10.65 - TYPE 1 DIABETES MELLITUS WITH HYPERGLYCEMIA (5) Opiate abuse, continuous Code(s): F11.10 - OPIOID ABUSE, UNCOMPLICATED Visit type - Emergency Visit Emergency Visit: Yes ED Registration Date: 09/13/17 Care time: The patient presented to the Emergency Department on the above date and was hospitalized for further evaluation of their emergent condition. - New Patient This patient is new to me today: Yes Date on this admission: 09/14/17 - Critical Care Critical Care patient: Yes Total Critical Care Time (in minutes): 35 Critical Care Statement: The care of this patient involved high complexity decision making to prevent further life threatening deterioration of the patient 's condition and/or to evaluate & treat vital organ system(s) failure or risk of failure.
[2017-09-14] MEDS: morphine SULFATE IMMEDIATE RELEASE 30 MG TAB PO PRN ×3 (10:31→22:12)
[2017-09-14] MEDS ORDERED: INSULIN SLIDING SCALE (NOVOLOG) 1 VIAL SQ SCH ×4 (10:45→22:00)
[2017-09-14] MEDS ORDERED: POTASSIUM CHLORIDE TABS 20 MEQ TABLET.ER (FP) PO ONE (11:00)
[2017-09-14] MEDS: CLINDAMYCIN HCL 150 MG CAPSULE (FP) PO SCH ×3 (11:43→13:34)
--- NOTE | 2017-09-14 13:35 | PN ---
Progress Note (short form) - Note Progress Note: Feels good Sitting in chair eating lunch Says she had the Insulin pump on and doesn't know how she developed DKA On pump for about 2 years and thinks she has had more DKAs on it than on Basla bolus regimen Vital Signs Period Temp Pulse Resp BP Sys/Rapp Pulse Ox Last 24 Hr 98.7 F-100.8 F 78-106 12-22 111-144/57-88 100-100 PE: AOx3 Neck: Supple, No JVD HEENT: PERRL, EOMI Lungs: CTA CVS: S1S2 Abd: Benign EXT: No edema Neuro: weakness of left side CMP Sodium 151 mmol/L (136-145) H 09/14/17 05:02 Potassium 3.3 mmol/L (3.5-5.1) L 09/14/17 05:02 Chloride 117 mmol/L (98-107) H 09/14/17 05:02 Carbon Dioxide 23 mmol/L (21-32) 09/14/17 05:02 Anion Gap 11 (8-16) 09/14/17 05:02 BUN 17 mg/dL (7-18) 09/14/17 05:02 Creatinine 0.6 mg/dL (0.55-1.02) 09/14/17 05:02 Creat Clearance w eGFR > 60 (>60) 09/14/17 05:02 POC Glucometer 219.03660 UNITS (80-120) 09/14/17 10:12 Random Glucose 107 mg/dL (74-106) H 09/14/17 05:02 Lactic Acid 1.7 mmol/L (0.0-2.0) 09/13/17 06:00 Calcium 7.9 mg/dL (8.5-10.1) L 09/14/17 05:02 Phosphorus 1.4 mg/dL (2.5-4.9) L 09/14/17 05:02 Magnesium 2.1 mg/dL (1.8-2.4) 09/14/17 05:02 Total Bilirubin 0.1 mg/dL (0.2-1.0) L D 09/14/17 05:02 AST 23 U/L (15-37) 09/14/17 05:02 ALT 30 U/L (12-78) 09/14/17 05:02 Alkaline Phosphatase 110 U/L (45-117) 09/14/17 05:02 Creatine Kinase 227 IU/L (26-192) H 09/13/17 00:01 Creatine Kinase Index 1.2 % (0.0-5.0) 09/13/17 00:01 CK-MB (CK-2) 2.847 ng/mL (0.5-3.6) 09/13/17 00:01 Troponin I < 0.02 ng/ml (0.00-0.05) 09/13/17 00:01 Total Protein 4.6 g/dl (6.4-8.2) L 09/14/17 05:02 Albumin 2.0 g/dl (3.4-5.0) L 09/14/17 05:02 Current Medications Generic Name Dose Route Start Last Admin Trade Name Freq PRN Reason Stop Dose Admin Acetaminophen 325 mg 09/14/17 09:42 Tylenol - PO 09/17/17 09:41 Q4H PRN PAIN LEVEL 6-10 Clindamycin HCl 450 mg 09/14/17 09:15 09/14/17 11:45 Cleocin - PO Not Given TID [facility] Heparin Sodium (Porcine) 5,000 unit 09/13/17 10:00 09/14/17 09:35 Heparin - SQ 5,000 unit BID [facility] Administration Insulin Aspart 1 vial 09/14/17 16:30 Novolog Vial Sliding Scale - SQ TIDAC [facility] Protocol Insulin Aspart 0 units 09/14/17 22:00 Novolog SQ HS [facility] Protocol Insulin Detemir 15 units 09/15/17 10:00 Levemir Vial SQ DAILY [facility] Morphine Sulfate 60 mg 09/14/17 11:00 09/14/17 10:31 Msir - PO 60 mg Q6H PRN Administration PAIN LEVEL 7 - 10 Oxycodone HCl 5 mg 09/14/17 09:42 Roxicodone - PO Q4H PRN PAIN LEVEL 6-10 AP DKA: resolved H/O CVA Discussed causes of DKA and that she probably went into it because the tubing came off and she didn't get any Insulin. Levemir 12 units given, Will increase to 15 units daily starting tomorrow. BGMN QACHS and at 3 AM Novolog SS coverage Pump setting reiewed: Basal 1.05 units per hr and Bolus setting CHO ration 1:15 and Correction factor 1:50 electrolyte replacement as necessary KCl 40 meq given Neutraphos 2pkt BID Will f/u Problem List - Problems (1) Diabetic keto-acidosis Code(s): E13.10 - OTH DIABETES MELLITUS WITH KETOACIDOSIS WITHOUT COMA Qualifiers: Diabetes mellitus type: due to underlying condition Diabetes mellitus complication detail: with coma Qualified Code(s): E08.11 - Diabetes mellitus due to underlying condition with ketoacidosis with coma (2) Hyperglycemia, unspecified Code(s): R73.9 - HYPERGLYCEMIA, UNSPECIFIED (3) Leukocytosis Code(s): D72.829 - ELEVATED WHITE BLOOD CELL COUNT, UNSPECIFIED
--- NOTE | 2017-09-14 17:45 | CON.ID ---
Consult - History of Present Illness History of Present Illness: Asked to evaluate this 47 y.o. female with PMH of uncontrolled IDDM with insulin pump with previous admissions for DKA ( discharged 3 days ago after treatment for DKA), recent CVA with Lt hemiparesis, gastroparesis, HLD, opioid and tobacco dependence brought in by who found her on the floor with AMS and confusion. Pt does not recall what happened. Denies recent shortness of breath/cough, chest pain, abd pain/n/v/d, dysuria. She was found to have hyperglycemia (glucose 1298), leukocytosis (wbc 16K), fever (Tmax 100.8K), lactic acidosis, and utox +opiates. Currently patient is in ICU on an insulin drip, fully alert/responsive and afebrile. She states she had seen a dentist for a dental bridge work who prescribed her clindamycin 2 wks ago for Rt upper tooth pain due to possible infection but she did not take it for more than 2 days due to nausea and inability to tolerate it. Currently she states she has pain in that region. 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: CVA (right MCA), Migraine Gastrointestinal: Yes: Other (Gastroparesis) ...LMP: 04/14/13 Musculoskeletal: Yes: Chronic low back pain Endocrine: Yes: Diabetes Mellitus Additional Medical History: dka in the past - Past Surgical History Past Surgical History: Yes: Cholecystectomy - Alcohol/Substance Use Hx Alcohol Use: No History of Substance Use: reports: None - Smoking History Smoking history: Current every day smoker Have you smoked in the past 12 months: Yes Aproximately how many cigarettes per day: 20 - Social History ADL: Independent History of Recent Travel: No Home Medications - Allergies Allergies/Adverse Reactions: Allergies Allergy/AdvReac Type Severity Reaction Status Date / Time No Known Allergies Allergy Verified 08/15/17 12:12 - Home Medications Home Medications: Ambulatory Orders Unobtainable [Unobtainable] 09/13/17 Family Disease History - Family Disease History Family Disease History: Heart Disease: Father (cad) Review of Systems - Review of Systems Constitutional: reports: No Symptoms Eyes: reports: No Symptoms HENT: reports: Toothache Neck: reports: No Symptoms Cardiovascular: reports: No Symptoms Respiratory: reports: No Symptoms Gastrointestinal: reports: No Symptoms Genitourinary: reports: No Symptoms Musculoskeletal: reports: No Symptoms Integumentary: reports: No Symptoms Neurological: reports: Confusion Hematology/Lymphatic: reports: No Symptoms Psychiatric: reports: No Symptoms Physical Exam Vital Signs: Vital Signs Temperature 99.4 F 09/14/17 14:00 Pulse Rate 66 09/14/17 15:57 Respiratory Rate 18 09/14/17 15:57 Blood Pressure 121/76 09/14/17 15:57 O2 Sat by Pulse Oximetry (%) 100 09/14/17 07:37 Constitutional: Yes: No Distress, Calm HENT: Yes: Atraumatic, Other (Poor dentition, missing upper teeth, Rt/Lt back tooth decay +tenderness, no facial edema) Neck: Yes: Supple Cardiovascular: Yes: Regular Rate and Rhythm Respiratory: Yes: CTA Bilaterally Gastrointestinal: Yes: Normal Bowel Sounds, Soft Renal/: Yes: WNL Musculoskeletal: Yes: WNL Extremities: Yes: WNL Neurological: Yes: Alert, Oriented Psychiatric: Yes: Alert Labs: CBC, BMP 09/14/17 05:02 09/14/17 05:02 Microbiology 09/13/17 10:30 Blood - Arterial Blood Culture - Preliminary NO GROWTH OBTAINED AFTER 24 HOURS, INCUBATION TO CONTINUE FOR 4 DAYS. 09/13/17 04:30 Urine - Urine Lott Urine Culture - Final NO GROWTH OBTAINED 09/13/17 00:01 Blood - Arterial Blood Culture - Preliminary NO GROWTH OBTAINED AFTER 24 HOURS, INCUBATION TO CONTINUE FOR 4 DAYS. Abnormal Lab Results 09/13/17 09/14/17 09/14/17 19:45 05:02 05:02 WBC 13.9 H D RBC 2.78 L Hgb 8.1 L Hct 24.7 L Sodium 151 H 151 H Potassium 3.3 L Chloride 122 H 117 H Anion Gap 7 L BUN 24 H Random Glucose 151 H 107 H Calcium 8.0 L 7.9 L Phosphorus 1.4 L Total Bilirubin 0.1 L D Alkaline Phosphatase 135 H Total Protein 5.0 L 4.6 L Albumin 2.4 L 2.0 L Lactic acid - 1.7 Imaging - Results X-ray: Report Reviewed Problem List - Problems (1) Diabetic keto-acidosis Code(s): E13.10 - OTH DIABETES MELLITUS WITH KETOACIDOSIS WITHOUT COMA Qualifiers: Diabetes mellitus type: due to underlying condition Diabetes mellitus complication detail: with coma Qualified Code(s): E08.11 - Diabetes mellitus due to underlying condition with ketoacidosis with coma (2) Gingivitis Code(s): K05.10 - CHRONIC GINGIVITIS, PLAQUE INDUCED (3) Lactic acid acidosis Code(s): E87.2 - ACIDOSIS (4) Leukocytosis Code(s): D72.829 - ELEVATED WHITE BLOOD CELL COUNT, UNSPECIFIED (5) Anemia Code(s): D64.9 - ANEMIA, UNSPECIFIED (6) Cerebrovascular accident (CVA) Code(s): I63.9 - CEREBRAL INFARCTION, UNSPECIFIED Qualifiers: CVA mechanism: unspecified Qualified Code(s): I63.9 - Cerebral infarction, unspecified (7) Diabetes mellitus, insulin dependent (IDDM), uncontrolled Code(s): E10.65 - TYPE 1 DIABETES MELLITUS WITH HYPERGLYCEMIA (8) Diabetic gastroparesis associated with type 1 diabetes mellitus Code(s): E10.43 - TYPE 1 DIABETES W DIABETIC AUTONOMIC (POLY)NEUROPATHY; K31.84 - GASTROPARESIS (9) Opiate abuse, continuous Code(s): F11.10 - OPIOID ABUSE, UNCOMPLICATED Assessment/Plan 47 y.o. female with PMH of IDDM, episodes of DKA, recent CVA/ Lt hemiparesis, gastroparesis, opioid dependence discharged 3 days ago after hospitalization for DKA brought in again with AMS/confusion, fever, leukocytosis, lactic acidosis, GIANCARLO, and hyperglycemia (glucose 1298) suggesting possible sepsis. Pt currently in ICU on insulin drip, alert, without distress. Routine cultures/CXR normal. Poor dentition with dental pain. DKA r/o Odontogenic infection Sepsis -- suggest Unasyn for now -- order dental xray -- continue monitor currently stable cc: 40 min
[2017-09-14] MEDS ORDERED: AMOX TR/POT CLAV 875MG/125MG TABLETS (FP) PO SCH (18:00)
[2017-09-14] MEDS ORDERED: AMPICILLIN NA/SULBACTAM NA 3 GM in SODIUM CHLORIDE 100 ML IVPB SCH (18:30)
[2017-09-14 18:44] LABS: BASO % 0.2 % (0-2.0); EOS % 0.9 % (0-4.5); HEMATOCRIT 26.2 % (32.4-45.2); HEMOGLOBIN 8.6 GM/dL (10.7-15.3); LYMPH % 39.2 % (8-40); MCH 29.3 pg (25.7-33.7); MCHC 32.9 g/dl (32.0-36.0); MEAN CELL VOLUME 89.1 fl (80-96); MEAN PLT VOLUME 7.9 fl (7.5-11.1); MONO % 7.1 % (3.8-10.2); NEUT % 52.6 % (42.8-82.8); PLATELET COUNT 380 K/MM3 (134-434); RBC 2.94 M/mm3 (3.60-5.2); RDW 15.3 % (11.6-15.6); WHITE BLOOD COUNT 10.5 K/mm3 (4.0-10.0)
[2017-09-14] MEDS ORDERED: PT OWN MED DRAWER 7, Y5N ONE (18:44)
[2017-09-14 19:11] LABS: ALBUMIN 2.3 g/dl (3.4-5.0); ANION GAP 9 (8-16); BLOOD UREA NITROGEN 13 mg/dL (7-18); CALCIUM 7.8 mg/dL (8.5-10.1); CHLORIDE 110 mmol/L (98-107); CO2 25 mmol/L (21-32); CREATININE 0.5 mg/dL (0.55-1.02); GLUCOSE,RANDOM 75 mg/dL (74-106); POTASSIUM 3.5 mmol/L (3.5-5.1); SGOT/AST 37 U/L (15-37); SGPT/ALT 35 U/L (12-78); SODIUM 144 mmol/L (136-145)
[2017-09-14 19:13] LABS: ALK PHOS 123 U/L (45-117); BILIRUBIN,TOTAL 0.5 mg/dL (0.2-1.0); TOT PROT 4.9 g/dl (6.4-8.2)
[2017-09-14] MEDS ORDERED: HEMOQUE CONTROL SOLUTION ONE (21:51)
[2017-09-14] MEDS ORDERED: NAPH,MB-DB/K PH,MBDB POWDER PACKET PO SCH (22:00)
[2017-09-14] MEDS ORDERED: Insulin (LOG) Aspart 100 UNITS/ML VIAL SQ SCH (22:00)
[2017-09-14] MEDS: AMPICILLIN NA/SULBACTAM NA 3 GM in SODIUM CHLORIDE 100 ML IVPB SCH (22:09)
[2017-09-14] MEDS: NAPH,MB-DB/K PH,MBDB POWDER PACKET PO SCH (22:12)
[2017-09-15] MEDS ORDERED: oxyCODONE HCL 5 MG TABLET PO ONE (01:36)
[2017-09-15] MEDS: AMPICILLIN NA/SULBACTAM NA 3 GM in SODIUM CHLORIDE 100 ML IVPB SCH ×5 (02:10→21:02)
[2017-09-15] MEDS: INSULIN SLIDING SCALE (NOVOLOG) 1 VIAL SQ SCH ×4 (06:16→21:16)
[2017-09-15] MEDS: morphine SULFATE IMMEDIATE RELEASE 30 MG TAB PO PRN ×3 (06:20→21:14)
[2017-09-15 06:58] LABS: ALBUMIN 2.1 g/dl (3.4-5.0); ALK PHOS 113 U/L (45-117); ANION GAP 9 (8-16); BILIRUBIN,TOTAL 0.4 mg/dL (0.2-1.0); BLOOD UREA NITROGEN 12 mg/dL (7-18); CALCIUM 7.6 mg/dL (8.5-10.1); CHLORIDE 110 mmol/L (98-107); CO2 24 mmol/L (21-32); CREATININE 0.5 mg/dL (0.55-1.02); PHOSPHOROUS 2.2 mg/dL (2.5-4.9); POTASSIUM 4.6 mmol/L (3.5-5.1); SGOT/AST 49 U/L (15-37); SGPT/ALT 35 U/L (12-78); SODIUM 143 mmol/L (136-145); TOT PROT 4.4 g/dl (6.4-8.2)
[2017-09-15] MEDS ORDERED: INSULIN DETEMIR 100 UNITS/ML MDV SQ SCH ×2 (07:00→10:00)
[2017-09-15 07:15] LABS: GLUCOSE,RANDOM 377 mg/dL (74-106)
[2017-09-15 09:10] LABS: MAGNESIUM 2.1 mg/dL (1.8-2.4)
[2017-09-15] MEDS ORDERED: PT OWN MED DRAWER 7, Y5N ONE ×3 (09:22→15:39)
[2017-09-15] MEDS: NAPH,MB-DB/K PH,MBDB POWDER PACKET PO SCH ×2 (09:30→21:16)
[2017-09-15] MEDS: HEPARIN NA (PORCINE) 5,000 UNITS/ML 1ML VIAL SQ SCH ×2 (09:30→21:16)
[2017-09-15] MEDS ORDERED: CALCIUM ACETATE 667 MG CAPSULE (FP) PO SCH (12:00)
--- NOTE | 2017-09-15 12:06 | PN ---
Teaching Attending Note Name of Resident: Girish Tariq ATTENDING PHYSICIAN STATEMENT I saw and evaluated the patient. I reviewed the resident's note and discussed the case with the resident. I agree with the resident's findings and plan as documented. SUBJECTIVE: Patient seen and examined in the ICU. Awake and alert. Less generalized weakness and fatigue. Off IV Insulin drip. AG normalized. Tooth ache. No CP or SOB. Intake & Output 09/12/17 09/13/17 09/14/17 09/15/17 23:59 23:59 23:59 23:59 Intake Total 5034 2250 600 Output Total 2700 1000 800 Balance 2334 1250 -200 Weight 130 lb 15.273 oz 119 lb 9.6 oz 120 lb 4 oz Last Vital Signs Temp Pulse Resp BP Pulse Ox 98.2 F 69 16 101/63 100 09/15/17 10:00 09/15/17 10:00 09/15/17 10:00 09/15/17 10:00 09/15/17 09:00 Active Medications Calcium Acetate (Phoslo -) 667 mg PO TIDCM [facility] Heparin Sodium (Porcine) (Heparin -) 5,000 unit SQ BID [facility] Last Admin: 09/15/17 09:30 Dose: 5,000 unit Ampicillin Sodium/Sulbactam (Sodium 3 gm/ Sodium Chloride) 100 mls @ 200 mls/ hr IVPB Q6H-IV [facility] Last Admin: 09/15/17 09:26 Dose: 200 mls/hr Insulin Aspart (Novolog Vial Sliding Scale -) 1 vial SQ HS [facility] PRN Reason: Protocol Last Admin: 09/14/17 22:09 Dose: 2 units Insulin Aspart (Novolog Vial Sliding Scale -) 1 vial SQ TIDAC [facility] PRN Reason: Protocol Last Admin: 09/15/17 06:16 Dose: 7 units Insulin Detemir (Levemir Vial) 15 units SQ AM [facility] Last Admin: 09/15/17 06:16 Dose: 15 units Morphine Sulfate (Msir -) 60 mg PO Q6H PRN PRN Reason: PAIN LEVEL 7 - 10 Last Admin: 09/15/17 06:20 Dose: 60 mg Potassium Phos/Sodium Phos (Phos-Nak Packet -) 1 packet PO BID [facility] Last Admin: 09/15/17 09:30 Dose: 1 packet Eyes: Yes: (-) Pallor HENT: Yes: Other (no upper teeth) Cardiovascular: Yes: Regular Rate and Rhythm, S1, S2 Respiratory: Yes: Clear Gastrointestinal: Yes: Normal Bowel Sounds, Soft Edema: No Neurological: Yes: Awake and alert, non-focal Labs: Laboratory Results - last 24 hr 09/13/17 09/13/17 09/14/17 03:36 07:02 06:18 WBC RBC Hgb Hct MCV MCH MCHC RDW Plt Count MPV Neutrophils % Lymphocytes % Monocytes % Eosinophils % Basophils % Sodium Potassium Chloride Carbon Dioxide Anion Gap BUN Creatinine Creat Clearance w eGFR POC Glucometer > 400 > 400 > 400 Random Glucose Calcium Phosphorus Magnesium Total Bilirubin AST ALT Alkaline Phosphatase Total Protein Albumin 09/14/17 09/14/17 09/14/17 15:52 18:00 18:00 WBC 10.5 H RBC 2.94 L Hgb 8.6 L Hct 26.2 L MCV 89.1 MCH 29.3 MCHC 32.9 RDW 15.3 Plt Count 380 MPV 7.9 Neutrophils % 52.6 D Lymphocytes % 39.2 D Monocytes % 7.1 Eosinophils % 0.9 D Basophils % 0.2 Sodium 144 Potassium 3.5 Chloride 110 H Carbon Dioxide 25 Anion Gap 9 BUN 13 Creatinine 0.5 L Creat Clearance w eGFR > 60 POC Glucometer 129.39638 Random Glucose 75 Calcium 7.8 L Phosphorus Magnesium Total Bilirubin 0.5 D AST 37 ALT 35 Alkaline Phosphatase 123 H Total Protein 4.9 L Albumin 2.3 L 09/14/17 09/15/17 09/15/17 22:01 02:01 02:03 WBC RBC Hgb Hct MCV MCH MCHC RDW Plt Count MPV Neutrophils % Lymphocytes % Monocytes % Eosinophils % Basophils % Sodium Potassium Chloride Carbon Dioxide Anion Gap BUN Creatinine Creat Clearance w eGFR POC Glucometer 202.38844 63.31645 273.68870 Random Glucose Calcium Phosphorus Magnesium Total Bilirubin AST ALT Alkaline Phosphatase Total Protein Albumin 09/15/17 09/15/17 09/15/17 05:05 05:34 07:40 WBC RBC Hgb Hct MCV MCH MCHC RDW Plt Count MPV Neutrophils % Lymphocytes % Monocytes % Eosinophils % Basophils % Sodium 143 Potassium 4.6 Chloride 110 H Carbon Dioxide 24 Anion Gap 9 BUN 12 Creatinine 0.5 L Creat Clearance w eGFR > 60 POC Glucometer > 400 Random Glucose 377 H* Calcium 7.6 L Phosphorus 2.2 L Magnesium 2.1 Cancelled Total Bilirubin 0.4 AST 49 H ALT 35 Alkaline Phosphatase 113 Total Protein 4.4 L Albumin 2.1 L Problem List - Problems (1) Diabetic keto-acidosis Code(s): E13.10 - OTH DIABETES MELLITUS WITH KETOACIDOSIS WITHOUT COMA Qualifiers: Diabetes mellitus type: due to underlying condition Diabetes mellitus complication detail: with coma Qualified Code(s): E08.11 - Diabetes mellitus due to underlying condition with ketoacidosis with coma (2) Hyperglycemia, unspecified Code(s): R73.9 - HYPERGLYCEMIA, UNSPECIFIED (3) Lactic acid acidosis Code(s): E87.2 - ACIDOSIS (4) Leukocytosis Code(s): D72.829 - ELEVATED WHITE BLOOD CELL COUNT, UNSPECIFIED (5) Renal failure (ARF), acute on chronic Code(s): N17.9 - ACUTE KIDNEY FAILURE, UNSPECIFIED; N18.9 - CHRONIC KIDNEY DISEASE, UNSPECIFIED Qualifiers: Acute renal failure type: unspecified Chronic kidney disease stage: unspecified stage Qualified Code(s): N17.9 - Acute kidney failure, unspecified ; N18.9 - Chronic kidney disease, unspecified; N18.9 - Chronic kidney disease, unspecified (6) Cerebrovascular accident (CVA) Code(s): I63.9 - CEREBRAL INFARCTION, UNSPECIFIED Qualifiers: CVA mechanism: unspecified Qualified Code(s): I63.9 - Cerebral infarction, unspecified Assessment/Plan IDDM now with recurrent DKA Lactic acidosis AGMA in the setting of above GIANCARLO possibly prerenal (Cr 0.7 on 09/10) Leukocytosis possibly reactive AMS in the setting of DKA Glycemic control per Endocrine Monitor off insulin drip PO as tolerated IVF Follow BGM Noted Clindamycin Xray evaluation Percocet for pain control ordered Floor Dr Otero Critical care time spent in reviewing chart, evaluating patient and formulating plan - 36 minutes.
--- NOTE | 2017-09-15 12:06 | PN ---
Progress Note (short form) - Note Progress Note: Feels better No symptomatic hypoglycemia during the night BGM 63 at 2;01 and 273 at 2:03 AM ? glucometer error Vital Signs Period Temp Pulse Resp BP Sys/Rapp Pulse Ox Last 24 Hr 98.2 F-99.4 F 55-78 16-21 96-121/50-80 100-100 PE: AOx3 Neck: Supple, No JVD HEENT: PERRL, EOMI Lungs: CTA CVS: S1S2 Abd: Benign EXT: No edema Neuro: weakness of left side upper extremity > lower extremity CMP Sodium 143 mmol/L (136-145) 09/15/17 05:05 Potassium 4.6 mmol/L (3.5-5.1) 09/15/17 05:05 Chloride 110 mmol/L (98-107) H 09/15/17 05:05 Carbon Dioxide 24 mmol/L (21-32) 09/15/17 05:05 Anion Gap 9 (8-16) 09/15/17 05:05 BUN 12 mg/dL (7-18) 09/15/17 05:05 Creatinine 0.5 mg/dL (0.55-1.02) L 09/15/17 05:05 Creat Clearance w eGFR > 60 (>60) 09/15/17 05:05 POC Glucometer > 400 UNITS (80-120) 09/15/17 05:34 Random Glucose 377 mg/dL (74-106) H* 09/15/17 05:05 Lactic Acid 1.7 mmol/L (0.0-2.0) 09/13/17 06:00 Calcium 7.6 mg/dL (8.5-10.1) L 09/15/17 05:05 Phosphorus 2.2 mg/dL (2.5-4.9) L 09/15/17 05:05 Magnesium 2.1 mg/dL (1.8-2.4) 09/15/17 05:05 Total Bilirubin 0.4 mg/dL (0.2-1.0) 09/15/17 05:05 AST 49 U/L (15-37) H 09/15/17 05:05 ALT 35 U/L (12-78) 09/15/17 05:05 Alkaline Phosphatase 113 U/L (45-117) 09/15/17 05:05 Creatine Kinase 227 IU/L (26-192) H 09/13/17 00:01 Creatine Kinase Index 1.2 % (0.0-5.0) 09/13/17 00:01 CK-MB (CK-2) 2.847 ng/mL (0.5-3.6) 09/13/17 00:01 Troponin I < 0.02 ng/ml (0.00-0.05) 09/13/17 00:01 Total Protein 4.4 g/dl (6.4-8.2) L 09/15/17 05:05 Albumin 2.1 g/dl (3.4-5.0) L 09/15/17 05:05 Current Medications Generic Name Dose Route Start Last Admin Trade Name Myronq PRN Reason Stop Dose Admin Calcium Acetate 667 mg 09/15/17 12:00 Phoslo - PO TIDCM [facility] Heparin Sodium (Porcine) 5,000 unit 09/14/17 22:00 09/15/17 09:30 Heparin - SQ 5,000 unit BID [facility] Administration Ampicillin Sodium/Sulbactam 100 mls @ 200 mls/hr 09/14/17 21:00 09/15/17 09: 26 Sodium 3 gm/ Sodium Chloride IVPB 200 mls/hr Q6H-IV [facility] Administration Insulin Aspart 1 vial 09/14/17 22:00 09/14/17 22:09 Novolog Vial Sliding Scale - SQ 2 units HS [facility] Administration Protocol Insulin Aspart 1 vial 09/15/17 07:00 09/15/17 06:16 Novolog Vial Sliding Scale - SQ 7 units TIDAC [facility] Administration Protocol Insulin Detemir 15 units 09/15/17 07:00 09/15/17 06:16 Levemir Vial SQ 15 units AM [facility] Administration Morphine Sulfate 60 mg 09/14/17 18:46 09/15/17 06:20 Msir - PO 60 mg Q6H PRN Administration PAIN LEVEL 7 - 10 Potassium Phos/Sodium Phos 1 packet 09/14/17 22:00 09/15/17 09:30 Phos-Nak Packet - PO 1 packet BID [facility] Administration AP DKA: resolved H/O CVA Discussed causes of DKA and that she probably went into it because the tubing came off and she didn't get any Insulin. BGM 63 at 2;01 and 273 at 2:03 AM ? glucometer error Levemir 15 units daily BGMN QACHS and at 3 AM Novolog SS coverage Will adjust Insulin dose as necessary Pump setting reiewed: Basal 1.05 units per hr and Bolus setting CHO ration 1:15 and Correction factor 1:50 electrolyte replacement as necessary Neutraphos 2pkt BID Rec PT Will f/u Problem List - Problems (1) Diabetic keto-acidosis Code(s): E13.10 - OTH DIABETES MELLITUS WITH KETOACIDOSIS WITHOUT COMA Qualifiers: Diabetes mellitus type: due to underlying condition Diabetes mellitus complication detail: with coma Qualified Code(s): E08.11 - Diabetes mellitus due to underlying condition with ketoacidosis with coma (2) Hyperglycemia, unspecified Code(s): R73.9 - HYPERGLYCEMIA, UNSPECIFIED (3) Leukocytosis Code(s): D72.829 - ELEVATED WHITE BLOOD CELL COUNT, UNSPECIFIED
--- NOTE | 2017-09-15 13:34 | PN ---
Physical Exam: SUBJECTIVE: Ms. Rosas feels much better today and would like some soft foods to eat. She currently has no pain although she reports burning when she urinates. OBJECTIVE: No acute events overnight. Vital Signs Period Temp Pulse Resp BP Sys/Rapp Pulse Ox Last 24 Hr 98.2 F-99.4 F 55-87 16-21 96-121/50-92 100-100 GENERAL: The patient is awake, alert, and fully oriented, in no acute distress. HEAD: Normal with no signs of trauma. EYES: PERRL, extraocular movements intact, sclera anicteric, conjunctiva clear. No ptosis. ENT: Ears normal, nares patent, oropharynx clear without exudates, moist mucous membranes. NECK: Trachea midline, full range of motion, supple. LUNGS: Breath sounds equal, clear to auscultation bilaterally, no wheezes, no crackles, no accessory muscle use. HEART: Regular rate and rhythm, S1, S2 without murmur, rub or gallop. ABDOMEN: Soft, nontender, nondistended, normoactive bowel sounds, no guarding, no rebound, no hepatosplenomegaly, no masses. EXTREMITIES: 2+ pulses, warm, well-perfused, no edema. NEUROLOGICAL: Cranial nerves II through XII grossly intact. Normal speech, gait not observed. PSYCH: Normal mood, normal affect. SKIN: Warm, dry, normal turgor, no rashes or lesions noted Laboratory Results - last 24 hr 09/13/17 09/13/17 09/14/17 03:36 07:02 06:18 WBC RBC Hgb Hct MCV MCH MCHC RDW Plt Count MPV Neutrophils % Lymphocytes % Monocytes % Eosinophils % Basophils % Sodium Potassium Chloride Carbon Dioxide Anion Gap BUN Creatinine Creat Clearance w eGFR POC Glucometer > 400 > 400 > 400 Random Glucose Calcium Phosphorus Magnesium Total Bilirubin AST ALT Alkaline Phosphatase Total Protein Albumin 09/14/17 09/14/17 09/14/17 15:52 18:00 18:00 WBC 10.5 H RBC 2.94 L Hgb 8.6 L Hct 26.2 L MCV 89.1 MCH 29.3 MCHC 32.9 RDW 15.3 Plt Count 380 MPV 7.9 Neutrophils % 52.6 D Lymphocytes % 39.2 D Monocytes % 7.1 Eosinophils % 0.9 D Basophils % 0.2 Sodium 144 Potassium 3.5 Chloride 110 H Carbon Dioxide 25 Anion Gap 9 BUN 13 Creatinine 0.5 L Creat Clearance w eGFR > 60 POC Glucometer 129.59216 Random Glucose 75 Calcium 7.8 L Phosphorus Magnesium Total Bilirubin 0.5 D AST 37 ALT 35 Alkaline Phosphatase 123 H Total Protein 4.9 L Albumin 2.3 L 09/14/17 09/15/17 09/15/17 22:01 02:01 02:03 WBC RBC Hgb Hct MCV MCH MCHC RDW Plt Count MPV Neutrophils % Lymphocytes % Monocytes % Eosinophils % Basophils % Sodium Potassium Chloride Carbon Dioxide Anion Gap BUN Creatinine Creat Clearance w eGFR POC Glucometer 202.29588 63.49639 273.48416 Random Glucose Calcium Phosphorus Magnesium Total Bilirubin AST ALT Alkaline Phosphatase Total Protein Albumin 09/15/17 09/15/17 09/15/17 05:05 05:34 07:40 WBC RBC Hgb Hct MCV MCH MCHC RDW Plt Count MPV Neutrophils % Lymphocytes % Monocytes % Eosinophils % Basophils % Sodium 143 Potassium 4.6 Chloride 110 H Carbon Dioxide 24 Anion Gap 9 BUN 12 Creatinine 0.5 L Creat Clearance w eGFR > 60 POC Glucometer > 400 Random Glucose 377 H* Calcium 7.6 L Phosphorus 2.2 L Magnesium 2.1 Cancelled Total Bilirubin 0.4 AST 49 H ALT 35 Alkaline Phosphatase 113 Total Protein 4.4 L Albumin 2.1 L 09/15/17 11:47 WBC RBC Hgb Hct MCV MCH MCHC RDW Plt Count MPV Neutrophils % Lymphocytes % Monocytes % Eosinophils % Basophils % Sodium Potassium Chloride Carbon Dioxide Anion Gap BUN Creatinine Creat Clearance w eGFR POC Glucometer 155.32035 Random Glucose Calcium Phosphorus Magnesium Total Bilirubin AST ALT Alkaline Phosphatase Total Protein Albumin Active Medications Generic Name Dose Route Start Last Admin Trade Name Freq PRN Reason Stop Dose Admin Calcium Acetate 667 mg 09/15/17 17:30 Phoslo - PO TIDCM [facility] Heparin Sodium (Porcine) 5,000 unit 09/15/17 22:00 Heparin - SQ BID [facility] Ampicillin Sodium/Sulbactam 100 mls @ 200 mls/hr 09/15/17 15:00 Sodium 3 gm/ Sodium Chloride IVPB Q6H-IV [facility] Insulin Aspart 1 vial 09/15/17 22:00 Novolog Vial Sliding Scale - SQ HS [facility] Protocol Insulin Aspart 1 vial 09/15/17 16:30 Novolog Vial Sliding Scale - SQ TIDAC [facility] Protocol Insulin Detemir 15 units 09/16/17 07:00 Levemir Vial SQ AM [facility] Morphine Sulfate 60 mg 09/15/17 12:58 Msir - PO Q6H PRN PAIN LEVEL 7 - 10 Potassium Phos/Sodium Phos 1 packet 09/15/17 22:00 Phos-Nak Packet - PO BID [facility] ASSESSMENT/PLAN: Ms. Rosas is a 47 yo woman w/ pmh of DM recently discharged 09/11 after admission for DKA who represented 09/13 in DKA w/ blood glucose of 1298. Anion gap now closed, patient no longer on insulin drip and acting at baseline. IDDM/Recurrent DKA -Endocrinology following -UA sent for UTI evaluation -Dental X-rays ordered to r/o infection source -Monitor off of insulin drip -Soft oral diabetic diet -Monitor BGM -ABX as per ID GIANCARLO -IV hydration -BUN/Cr improved, continue to monitor Prophylaxis -SQH Disposition -Patient stable and will be transferred to floor for further evaluation Visit type - Emergency Visit Emergency Visit: Yes ED Registration Date: 09/13/17 Care time: The patient presented to the Emergency Department on the above date and was hospitalized for further evaluation of their emergent condition. - New Patient This patient is new to me today: Yes Date on this admission: 09/15/17 - Critical Care Critical Care patient: Yes Total Critical Care Time (in minutes): 37 Critical Care Statement: The care of this patient involved high complexity decision making to prevent further life threatening deterioration of the patient 's condition and/or to evaluate & treat vital organ system(s) failure or risk of failure.
--- NOTE | 2017-09-15 14:36 | PN ---
Progress Note, Physician History of Present Illness: stable no issues feels much better - Current Medication List Current Medications: Active Medications Calcium Acetate (Phoslo -) 667 mg PO TIDCM [facility] Heparin Sodium (Porcine) (Heparin -) 5,000 unit SQ BID [facility] Ampicillin Sodium/Sulbactam (Sodium 3 gm/ Sodium Chloride) 100 mls @ 200 mls/ hr IVPB Q6H-IV [facility] Insulin Aspart (Novolog Vial Sliding Scale -) 1 vial SQ HS [facility] PRN Reason: Protocol Insulin Aspart (Novolog Vial Sliding Scale -) 1 vial SQ TIDAC [facility] PRN Reason: Protocol Insulin Detemir (Levemir Vial) 15 units SQ AM [facility] Morphine Sulfate (Msir -) 60 mg PO Q6H PRN PRN Reason: PAIN LEVEL 7 - 10 Potassium Phos/Sodium Phos (Phos-Nak Packet -) 1 packet PO BID [facility] - Objective Vital Signs: Vital Signs Temperature 98.2 F 09/15/17 10:00 Pulse Rate 87 09/15/17 12:00 Respiratory Rate 19 09/15/17 12:00 Blood Pressure 107/92 09/15/17 12:00 O2 Sat by Pulse Oximetry (%) 100 09/15/17 09:00 Constitutional: Yes: No Distress, Calm Cardiovascular: Yes: Regular Rate and Rhythm Respiratory: Yes: Regular, CTA Bilaterally Gastrointestinal: Yes: Normal Bowel Sounds, Soft Musculoskeletal: Yes: WNL Extremities: Yes: WNL Neurological: Yes: Alert, Oriented Psychiatric: Yes: Alert, Oriented Labs: CBC, BMP 09/14/17 18:00 09/15/17 05:05 Assessment/Plan Problem List - Problems (1) Diabetic keto-acidosis Code(s): E13.10 - OTH DIABETES MELLITUS WITH KETOACIDOSIS WITHOUT COMA Qualifiers: Diabetes mellitus type: due to underlying condition Diabetes mellitus complication detail: with coma Qualified Code(s): E08.11 - Diabetes mellitus due to underlying condition with ketoacidosis with coma (2) Gingivitis Code(s): K05.10 - CHRONIC GINGIVITIS, PLAQUE INDUCED (3) Lactic acid acidosis Code(s): E87.2 - ACIDOSIS (4) Leukocytosis Code(s): D72.829 - ELEVATED WHITE BLOOD CELL COUNT, UNSPECIFIED (5) Anemia Code(s): D64.9 - ANEMIA, UNSPECIFIED (6) Cerebrovascular accident (CVA) Code(s): I63.9 - CEREBRAL INFARCTION, UNSPECIFIED Qualifiers: CVA mechanism: unspecified Qualified Code(s): I63.9 - Cerebral infarction, unspecified (7) Diabetes mellitus, insulin dependent (IDDM), uncontrolled Code(s): E10.65 - TYPE 1 DIABETES MELLITUS WITH HYPERGLYCEMIA (8) Diabetic gastroparesis associated with type 1 diabetes mellitus Code(s): E10.43 - TYPE 1 DIABETES W DIABETIC AUTONOMIC (POLY)NEUROPATHY; K31.84 - GASTROPARESIS (9) Opiate abuse, continuous Code(s): F11.10 - OPIOID ABUSE, UNCOMPLICATED plan continue abx for now for suspected odtogenic infection once we have all the results we will deescalte rest as per icu patient stable cc 40 min
--- NOTE | 2017-09-15 16:56 | PN ---
Teaching Attending Note Name of Resident: Juvenal Blanc ATTENDING PHYSICIAN STATEMENT I saw and evaluated the patient. I reviewed the resident's note and discussed the case with the resident. I agree with the resident's findings and plan as documented. SUBJECTIVE: Patient has no complaints. OBJECTIVE: Vital Signs Period Temp Pulse Resp BP Sys/Rapp Pulse Ox Last 24 Hr 98.2 F-98.8 F 55-87 16-21 96-121/50-92 100-100 HEART: S1S2, RRR LUNGS: Clear ABDOMEN: Soft, non-tender, non-distended, normal BS EXTREMITIES: No edema Laboratory Results - last 24 hr 09/13/17 09/13/17 09/14/17 03:36 07:02 06:18 WBC RBC Hgb Hct MCV MCH MCHC RDW Plt Count MPV Neutrophils % Lymphocytes % Monocytes % Eosinophils % Basophils % Sodium Potassium Chloride Carbon Dioxide Anion Gap BUN Creatinine Creat Clearance w eGFR POC Glucometer > 400 > 400 > 400 Random Glucose Calcium Phosphorus Magnesium Total Bilirubin AST ALT Alkaline Phosphatase Total Protein Albumin 09/14/17 09/14/17 09/14/17 18:00 18:00 22:01 WBC 10.5 H RBC 2.94 L Hgb 8.6 L Hct 26.2 L MCV 89.1 MCH 29.3 MCHC 32.9 RDW 15.3 Plt Count 380 MPV 7.9 Neutrophils % 52.6 D Lymphocytes % 39.2 D Monocytes % 7.1 Eosinophils % 0.9 D Basophils % 0.2 Sodium 144 Potassium 3.5 Chloride 110 H Carbon Dioxide 25 Anion Gap 9 BUN 13 Creatinine 0.5 L Creat Clearance w eGFR > 60 POC Glucometer 202.09451 Random Glucose 75 Calcium 7.8 L Phosphorus Magnesium Total Bilirubin 0.5 D AST 37 ALT 35 Alkaline Phosphatase 123 H Total Protein 4.9 L Albumin 2.3 L 09/15/17 09/15/17 09/15/17 02:01 02:03 05:05 WBC RBC Hgb Hct MCV MCH MCHC RDW Plt Count MPV Neutrophils % Lymphocytes % Monocytes % Eosinophils % Basophils % Sodium 143 Potassium 4.6 Chloride 110 H Carbon Dioxide 24 Anion Gap 9 BUN 12 Creatinine 0.5 L Creat Clearance w eGFR > 60 POC Glucometer 63.51773 273.00271 Random Glucose 377 H* Calcium 7.6 L Phosphorus 2.2 L Magnesium 2.1 Total Bilirubin 0.4 AST 49 H ALT 35 Alkaline Phosphatase 113 Total Protein 4.4 L Albumin 2.1 L 09/15/17 09/15/17 09/15/17 05:34 07:40 11:47 WBC RBC Hgb Hct MCV MCH MCHC RDW Plt Count MPV Neutrophils % Lymphocytes % Monocytes % Eosinophils % Basophils % Sodium Potassium Chloride Carbon Dioxide Anion Gap BUN Creatinine Creat Clearance w eGFR POC Glucometer > 400 155.98140 Random Glucose Calcium Phosphorus Magnesium Cancelled Total Bilirubin AST ALT Alkaline Phosphatase Total Protein Albumin Current Medications Generic Name Dose Route Start Last Admin Trade Name Freq PRN Reason Stop Dose Admin Calcium Acetate 667 mg 09/15/17 17:30 Phoslo - PO TIDCM [facility] Heparin Sodium (Porcine) 5,000 unit 09/15/17 22:00 Heparin - SQ BID [facility] Ampicillin Sodium/Sulbactam 100 mls @ 200 mls/hr 09/15/17 15:00 09/15/17 15: 47 Sodium 3 gm/ Sodium Chloride IVPB 200 mls/hr Q6H-IV [facility] Administration Insulin Aspart 1 vial 09/15/17 22:00 Novolog Vial Sliding Scale - SQ HS [facility] Protocol Insulin Aspart 1 vial 09/15/17 16:30 Novolog Vial Sliding Scale - SQ TIDAC [facility] Protocol Insulin Detemir 15 units 09/16/17 07:00 Levemir Vial SQ AM [facility] Morphine Sulfate 60 mg 09/15/17 12:58 09/15/17 14:42 Msir - PO 60 mg Q6H PRN Administration PAIN LEVEL 7 - 10 Potassium Phos/Sodium Phos 1 packet 09/15/17 22:00 Phos-Nak Packet - PO BID [facility] ASSESSMENT AND PLAN: This is a 47 year old woman with a history of type 1 DM, diabetic gastroparesis , chronic pain, CVA with left hemiparesis who presented to the ER after being found on the floor. 1. DKA - Resolved 2. Uncontrolled type 1 DM - Continue Levemir, Novolog sliding scale 3. Acute metabolic encephalopathy secondary to DKA - Resolved 4. Dental infection - On Unasyn 5. Acute kidney injury secondary to dehydration - Resolved 6. Hypernatremia - Resolved 7. Hypophosphatemia - Improved 8. Hypokalemia - Improved 9. Left hemiparesis secondary to recent CVA 10. Chronic pain
[2017-09-15] MEDS: CALCIUM ACETATE 667 MG CAPSULE (FP) PO SCH (18:41)
--- NOTE | 2017-09-15 19:58 | PN ---
Physical Exam: SUBJECTIVE: Patient seen and examined at bedside. Patient alert and oriented. No complaints. OBJECTIVE: Vital Signs Period Temp Pulse Resp BP Sys/Rapp Pulse Ox Last 24 Hr 98.2 F-98.8 F 55-87 16-21 96-121/50-92 100-100 GENERAL: The patient is awake, alert, and fully oriented, in no acute distress. LUNGS: Breath sounds equal, clear to auscultation bilaterally, no wheezes, no crackles, no accessory muscle use. HEART: Regular rate and rhythm, S1, S2 without murmur, rub or gallop. ABDOMEN: Soft, nontender, nondistended, normoactive bowel sounds, no guarding, no rebound, no hepatosplenomegaly, no masses. EXTREMITIES: 2+ pulses, warm, well-perfused, no edema. NEUROLOGICAL: Cranial nerves II through X grossly intact. Normal speech, gait not observed. Laboratory Results - last 24 hr 09/13/17 09/13/17 09/14/17 03:36 07:02 06:18 Sodium Potassium Chloride Carbon Dioxide Anion Gap BUN Creatinine Creat Clearance w eGFR POC Glucometer > 400 > 400 > 400 Random Glucose Calcium Phosphorus Magnesium Total Bilirubin AST ALT Alkaline Phosphatase Total Protein Albumin 09/14/17 09/15/17 09/15/17 22:01 02:01 02:03 Sodium Potassium Chloride Carbon Dioxide Anion Gap BUN Creatinine Creat Clearance w eGFR POC Glucometer 202.74436 63.90921 273.70265 Random Glucose Calcium Phosphorus Magnesium Total Bilirubin AST ALT Alkaline Phosphatase Total Protein Albumin 09/15/17 09/15/17 09/15/17 05:05 05:34 07:40 Sodium 143 Potassium 4.6 Chloride 110 H Carbon Dioxide 24 Anion Gap 9 BUN 12 Creatinine 0.5 L Creat Clearance w eGFR > 60 POC Glucometer > 400 Random Glucose 377 H* Calcium 7.6 L Phosphorus 2.2 L Magnesium 2.1 Cancelled Total Bilirubin 0.4 AST 49 H ALT 35 Alkaline Phosphatase 113 Total Protein 4.4 L Albumin 2.1 L 09/15/17 09/15/17 11:47 17:47 Sodium Potassium Chloride Carbon Dioxide Anion Gap BUN Creatinine Creat Clearance w eGFR POC Glucometer 155.94228 97 Random Glucose Calcium Phosphorus Magnesium Total Bilirubin AST ALT Alkaline Phosphatase Total Protein Albumin Active Medications Generic Name Dose Route Start Last Admin Trade Name Freq PRN Reason Stop Dose Admin Calcium Acetate 667 mg 09/15/17 17:30 09/15/17 18:41 Phoslo - PO 667 mg TIDCM [facility] Administration Heparin Sodium (Porcine) 5,000 unit 09/15/17 22:00 Heparin - SQ BID [facility] Ampicillin Sodium/Sulbactam 100 mls @ 200 mls/hr 09/15/17 15:00 09/15/17 15: 47 Sodium 3 gm/ Sodium Chloride IVPB 200 mls/hr Q6H-IV [facility] Administration Insulin Aspart 1 vial 09/15/17 22:00 Novolog Vial Sliding Scale - SQ HS [facility] Protocol Insulin Aspart 1 vial 09/15/17 16:30 09/15/17 18:31 Novolog Vial Sliding Scale - SQ Not Given TIDAC [facility] Protocol Insulin Detemir 15 units 09/16/17 07:00 Levemir Vial SQ AM [facility] Morphine Sulfate 60 mg 09/15/17 12:58 09/15/17 14:42 Msir - PO 60 mg Q6H PRN Administration PAIN LEVEL 7 - 10 Potassium Phos/Sodium Phos 1 packet 09/15/17 22:00 Phos-Nak Packet - PO BID [facility] ASSESSMENT/PLAN: The patient is a 47 yo f w/ PMH DM & multiple episodes of DKA who is being admitted to the ICU for management of DKA. #DKA- resolved -Gap closed -Levemir 15u QAM -ISS TIDAC -secondary ISS HS -BGM ACHS and @ 3AM #Dental infection -unasyn 3g Q6H #suspected opioid dependence -as per nursing staff and medical record -Monitor for signs of withdrawal -morphine 60mg Q6H PRN #hyperkalemia christiano 2/2 acidosis- resolved -K+ = 4.6 -monitor EKG. #FEN -no fluids indicated -monitor lytes as above -Diabetic Diet #Prophy -Hep SQ 5ku BID #Dispo -admit to ICU Visit type - Emergency Visit Emergency Visit: Yes ED Registration Date: 09/13/17 Care time: The patient presented to the Emergency Department on the above date and was hospitalized for further evaluation of their emergent condition. - New Patient This patient is new to me today: No - Critical Care Critical Care patient: No
[2017-09-15] MEDS ORDERED: INSULIN (NOVOLOG) ASPART 100 UNITS/ML 10ML VIAL ONE (21:08)
[2017-09-15] MEDS ORDERED: INSULIN DETEMIR 100 UNITS/ML MDV SQ ONE (21:09)
[2017-09-16] MEDS: AMPICILLIN NA/SULBACTAM NA 3 GM in SODIUM CHLORIDE 100 ML IVPB SCH ×4 (03:01→21:01)
[2017-09-16] MEDS: INSULIN SLIDING SCALE (NOVOLOG) 1 VIAL SQ SCH ×4 (06:48→22:30)
[2017-09-16] MEDS ORDERED: INSULIN DETEMIR 100 UNITS/ML MDV SQ SCH (07:00)
[2017-09-16] MEDS: morphine SULFATE IMMEDIATE RELEASE 30 MG TAB PO PRN ×3 (07:14→20:08)
[2017-09-16 07:43] LABS: ALBUMIN 2.1 g/dl (3.4-5.0); ANION GAP 11 (8-16); BLOOD UREA NITROGEN 17 mg/dL (7-18); CALCIUM 7.9 mg/dL (8.5-10.1); CHLORIDE 104 mmol/L (98-107); CO2 25 mmol/L (21-32); POTASSIUM 4.7 mmol/L (3.5-5.1); SODIUM 140 mmol/L (136-145)
[2017-09-16 07:55] LABS: ALK PHOS 122 U/L (45-117); BILIRUBIN,TOTAL 0.4 mg/dL (0.2-1.0); CREATININE 0.5 mg/dL (0.55-1.02); PHOSPHOROUS 3.5 mg/dL (2.5-4.9); SGOT/AST 36 U/L (15-37); SGPT/ALT 35 U/L (12-78); TOT PROT 4.7 g/dl (6.4-8.2)
[2017-09-16] MEDS ORDERED: INSULIN DETEMIR 100 UNITS/ML MDV SQ ONE ×4 (07:55→22:00)
[2017-09-16] MEDS ORDERED: INSULIN (NOVOLOG) ASPART 100 UNITS/ML 10ML VIAL ONE ×6 (07:56→19:58)
[2017-09-16 08:14] LABS: GLUCOSE,RANDOM 469 mg/dL (74-106)
[2017-09-16] MEDS: CALCIUM ACETATE 667 MG CAPSULE (FP) PO SCH ×3 (09:03→17:13)
[2017-09-16] MEDS: NAPH,MB-DB/K PH,MBDB POWDER PACKET PO SCH (09:56)
[2017-09-16] MEDS: HEPARIN NA (PORCINE) 5,000 UNITS/ML 1ML VIAL SQ SCH ×2 (09:56→22:29)
--- NOTE | 2017-09-16 10:30 | PN ---
Progress Note (short form) - Note Progress Note: Feels good Eager to go home FS 396 in morning, Had pedialyte during the night Vital Signs Period Temp Pulse Resp BP Sys/Rapp Pulse Ox Last 24 Hr 97.7 F-98.4 F 67-87 19-20 105-125/68-92 100 PE: AOx3 Neck: Supple, No JVD HEENT: PERRL, EOMI Lungs: CTA CVS: S1S2 Abd: Benign EXT: No edema Neuro: weakness of left side upper extremity > lower extremity CMP Sodium 140 mmol/L (136-145) 09/16/17 05:30 Potassium 4.7 mmol/L (3.5-5.1) 09/16/17 05:30 Chloride 104 mmol/L (98-107) 09/16/17 05:30 Carbon Dioxide 25 mmol/L (21-32) 09/16/17 05:30 Anion Gap 11 (8-16) 09/16/17 05:30 BUN 17 mg/dL (7-18) 09/16/17 05:30 Creatinine 0.5 mg/dL (0.55-1.02) L 09/16/17 05:30 Creat Clearance w eGFR > 60 (>60) 09/16/17 05:30 POC Glucometer 396 UNITS (80-120) 09/16/17 06:04 Random Glucose 469 mg/dL (74-106) H* 09/16/17 05:30 Lactic Acid 1.7 mmol/L (0.0-2.0) 09/13/17 06:00 Calcium 7.9 mg/dL (8.5-10.1) L 09/16/17 05:30 Phosphorus 3.5 mg/dL (2.5-4.9) 09/16/17 05:30 Magnesium 2.1 mg/dL (1.8-2.4) 09/15/17 05:05 Total Bilirubin 0.4 mg/dL (0.2-1.0) 09/16/17 05:30 AST 36 U/L (15-37) 09/16/17 05:30 ALT 35 U/L (12-78) 09/16/17 05:30 Alkaline Phosphatase 122 U/L (45-117) H 09/16/17 05:30 Creatine Kinase 227 IU/L (26-192) H 09/13/17 00:01 Creatine Kinase Index 1.2 % (0.0-5.0) 09/13/17 00:01 CK-MB (CK-2) 2.847 ng/mL (0.5-3.6) 09/13/17 00:01 Troponin I < 0.02 ng/ml (0.00-0.05) 09/13/17 00:01 Total Protein 4.7 g/dl (6.4-8.2) L 09/16/17 05:30 Albumin 2.1 g/dl (3.4-5.0) L 09/16/17 05:30 Current Medications Generic Name Dose Route Start Last Admin Trade Name Freq PRN Reason Stop Dose Admin Calcium Acetate 667 mg 09/15/17 17:30 09/16/17 09:03 Phoslo - PO 667 mg TIDCM [facility] Administration Heparin Sodium (Porcine) 5,000 unit 09/15/17 22:00 09/16/17 09:56 Heparin - SQ 5,000 unit BID [facility] Administration Ampicillin Sodium/Sulbactam 100 mls @ 200 mls/hr 09/15/17 15:00 09/16/17 09: 56 Sodium 3 gm/ Sodium Chloride IVPB 200 mls/hr Q6H-IV [facility] Administration Insulin Aspart 1 vial 09/15/17 22:00 09/15/17 21:16 Novolog Vial Sliding Scale - SQ Not Given HS [facility] Protocol Insulin Aspart 1 vial 09/15/17 16:30 09/16/17 06:48 Novolog Vial Sliding Scale - SQ 7 units TIDAC [facility] Administration Protocol Insulin Detemir 15 units 09/16/17 07:00 09/16/17 06:47 Levemir Vial SQ 15 units AM [facility] Administration Morphine Sulfate 60 mg 09/15/17 12:58 09/16/17 07:14 Msir - PO 60 mg Q6H PRN Administration PAIN LEVEL 7 - 10 Potassium Phos/Sodium Phos 1 packet 09/15/17 22:00 09/16/17 09:56 Phos-Nak Packet - PO 1 packet BID [facility] Administration AP DKA: resolved H/O CVA Discussed causes of DKA and that she probably went into it because the tubing came off and she didn't get any Insulin. BGM 63 at 2;01 and 273 at 2:03 AM ? glucometer error INcrease Levemir 10 units BID starting tomorrow, Levemir 5 units at HS [facility] BG QACHS and at 3 AM Novolog SS coverage Will adjust Insulin dose as necessary Pump setting: Basal 1.05 units per hr and Bolus setting CHO ration 1:15 and Correction factor 1:50 electrolyte replacement as necessary D/C Neutraphos 2pkt BID Rec PT Dicsussed with housestaff on the case. Will f/u Problem List - Problems (1) Diabetic keto-acidosis Code(s): E13.10 - OTH DIABETES MELLITUS WITH KETOACIDOSIS WITHOUT COMA Qualifiers: Diabetes mellitus type: due to underlying condition Diabetes mellitus complication detail: with coma Qualified Code(s): E08.11 - Diabetes mellitus due to underlying condition with ketoacidosis with coma (2) Hyperglycemia, unspecified Code(s): R73.9 - HYPERGLYCEMIA, UNSPECIFIED (3) Leukocytosis Code(s): D72.829 - ELEVATED WHITE BLOOD CELL COUNT, UNSPECIFIED
--- NOTE | 2017-09-16 13:32 | PN ---
Progress Note, Physician History of Present Illness: patient doing well no near issues - Current Medication List Current Medications: Active Medications Calcium Acetate (Phoslo -) 667 mg PO TIDCM [facility] Last Admin: 09/16/17 12:48 Dose: 667 mg Heparin Sodium (Porcine) (Heparin -) 5,000 unit SQ BID [facility] Last Admin: 09/16/17 09:56 Dose: 5,000 unit Ampicillin Sodium/Sulbactam (Sodium 3 gm/ Sodium Chloride) 100 mls @ 200 mls/ hr IVPB Q6H-IV [facility] Last Admin: 09/16/17 09:56 Dose: 200 mls/hr Insulin Aspart (Novolog Vial Sliding Scale -) 1 vial SQ HS [facility] PRN Reason: Protocol Last Admin: 09/15/17 21:16 Dose: Not Given Insulin Aspart (Novolog Vial Sliding Scale -) 1 vial SQ TIDAC [facility] PRN Reason: Protocol Last Admin: 09/16/17 12:47 Dose: 4 units Insulin Detemir (Levemir Vial) 18 units SQ AM [facility] Morphine Sulfate (Msir -) 60 mg PO Q6H PRN PRN Reason: PAIN LEVEL 7 - 10 Last Admin: 09/16/17 13:19 Dose: 60 mg - Objective Vital Signs: Vital Signs Temperature 98.4 F 09/16/17 10:00 Pulse Rate 70 09/16/17 10:00 Respiratory Rate 20 09/16/17 10:00 Blood Pressure 121/68 09/16/17 10:00 O2 Sat by Pulse Oximetry (%) 99 09/16/17 09:00 Constitutional: Yes: No Distress, Calm, Thin Cardiovascular: Yes: Regular Rate and Rhythm Respiratory: Yes: Regular, CTA Bilaterally Gastrointestinal: Yes: Normal Bowel Sounds, Soft Musculoskeletal: Yes: Muscle Pain Extremities: Yes: WNL Neurological: Yes: Alert, Oriented Psychiatric: Yes: Alert, Oriented Labs: CBC, BMP 09/14/17 18:00 09/16/17 05:30 Assessment/Plan Problem List - Problems (1) Diabetic keto-acidosis Code(s): E13.10 - OTH DIABETES MELLITUS WITH KETOACIDOSIS WITHOUT COMA Qualifiers: Diabetes mellitus type: due to underlying condition Diabetes mellitus complication detail: with coma Qualified Code(s): E08.11 - Diabetes mellitus due to underlying condition with ketoacidosis with coma (2) Gingivitis Code(s): K05.10 - CHRONIC GINGIVITIS, PLAQUE INDUCED (3) Lactic acid acidosis Code(s): E87.2 - ACIDOSIS (4) Leukocytosis Code(s): D72.829 - ELEVATED WHITE BLOOD CELL COUNT, UNSPECIFIED (5) Anemia Code(s): D64.9 - ANEMIA, UNSPECIFIED (6) Cerebrovascular accident (CVA) Code(s): I63.9 - CEREBRAL INFARCTION, UNSPECIFIED Qualifiers: CVA mechanism: unspecified Qualified Code(s): I63.9 - Cerebral infarction, unspecified (7) Diabetes mellitus, insulin dependent (IDDM), uncontrolled Code(s): E10.65 - TYPE 1 DIABETES MELLITUS WITH HYPERGLYCEMIA (8) Diabetic gastroparesis associated with type 1 diabetes mellitus Code(s): E10.43 - TYPE 1 DIABETES W DIABETIC AUTONOMIC (POLY)NEUROPATHY; K31.84 - GASTROPARESIS (9) Opiate abuse, continuous Code(s): F11.10 - OPIOID ABUSE, UNCOMPLICATED plan wbc trending down once wbc normal will switch to oral final plan for dental infection rest as per primary
[2017-09-16] MEDS ORDERED: PT OWN MED DRAWER 7, Y5N ONE (15:01)
[2017-09-16 16:58] LABS: URINE APPEARANCE CLEAR; URINE BILIRUBIN NEGATIVE (NEGATIVE); URINE BLOOD NEGATIVE (NEGATIVE); URINE COLOR COLORLESS; URINE GLUCOSE (UA) NEGATIVE (NEGATIVE); URINE KETONE NEGATIVE (NEGATIVE); URINE LEUK ESTERASE NEGATIVE (NEGATIVE); URINE NITRITE NEGATIVE (NEGATIVE); URINE PROTEIN NEGATIVE (NEGATIVE); URINE UROBILINOGEN NEGATIVE mg/dL (0.2-1.0)
--- NOTE | 2017-09-16 17:23 | PN ---
Teaching Attending Note Name of Resident: Juvenal Blanc ATTENDING PHYSICIAN STATEMENT I saw and evaluated the patient. I reviewed the resident's note and discussed the case with the resident. I agree with the resident's findings and plan as documented. SUBJECTIVE: No complaints. OBJECTIVE: Vital Signs Period Temp Pulse Resp BP Sys/Rapp Pulse Ox Last 24 Hr 97.7 F-98.7 F 67-71 20-20 105-125/54-73 99-100 HEART: S1S2, RRR LUNGS: Clear ABDOMEN: Soft, non-tender, non-distended, normal BS EXTREMITIES: No edema Laboratory Results - last 24 hr 09/15/17 09/15/17 09/16/17 17:47 21:13 05:30 Sodium 140 Potassium 4.7 Chloride 104 Carbon Dioxide 25 Anion Gap 11 BUN 17 Creatinine 0.5 L Creat Clearance w eGFR > 60 POC Glucometer 97 199 Random Glucose 469 H* Calcium 7.9 L Phosphorus 3.5 Total Bilirubin 0.4 AST 36 ALT 35 Alkaline Phosphatase 122 H Total Protein 4.7 L Albumin 2.1 L Urine Color Urine Appearance Urine pH Ur Specific [place] Urine Protein Urine Glucose (UA) Urine Ketones Urine Blood Urine Nitrite Urine Bilirubin Urine Urobilinogen Ur Leukocyte Esterase 09/16/17 09/16/17 09/16/17 06:04 12:29 16:30 Sodium Potassium Chloride Carbon Dioxide Anion Gap BUN Creatinine Creat Clearance w eGFR POC Glucometer 396 221 Random Glucose Calcium Phosphorus Total Bilirubin AST ALT Alkaline Phosphatase Total Protein Albumin Urine Color Colorless Urine Appearance Clear Urine pH 7.0 D Ur Specific [place] 1.003 Urine Protein Negative Urine Glucose (UA) Negative Urine Ketones Negative Urine Blood Negative Urine Nitrite Negative Urine Bilirubin Negative Urine Urobilinogen Negative Ur Leukocyte Esterase Negative Current Medications Generic Name Dose Route Start Last Admin Trade Name Freq PRN Reason Stop Dose Admin Calcium Acetate 667 mg 09/15/17 17:30 09/16/17 17:13 Phoslo - PO 667 mg TIDCM [facility] Administration Heparin Sodium (Porcine) 5,000 unit 09/15/17 22:00 09/16/17 09:56 Heparin - SQ 5,000 unit BID [facility] Administration Ampicillin Sodium/Sulbactam 100 mls @ 200 mls/hr 09/15/17 15:00 09/16/17 15: 08 Sodium 3 gm/ Sodium Chloride IVPB 200 mls/hr Q6H-IV [facility] Administration Insulin Aspart 1 vial 09/15/17 22:00 09/15/17 21:16 Novolog Vial Sliding Scale - SQ Not Given HS [facility] Protocol Insulin Aspart 1 vial 09/15/17 16:30 09/16/17 17:12 Novolog Vial Sliding Scale - SQ 4 units TIDAC [facility] Administration Protocol Insulin Detemir 10 units 09/17/17 10:00 Levemir Vial SQ BID [facility] Insulin Detemir 5 units 09/16/17 22:00 Levemir Vial SQ 09/16/17 22:01 HS ONE Morphine Sulfate 60 mg 09/15/17 12:58 09/16/17 13:19 Msir - PO 60 mg Q6H PRN Administration PAIN LEVEL 7 - 10 ASSESSMENT AND PLAN: This is a 47 year old woman with a history of type 1 DM, diabetic gastroparesis , chronic pain, CVA with left hemiparesis who presented to the ER after being found on the floor. 1. DKA - Resolved 2. Uncontrolled type 1 DM - Adjust Levemir - Continue Novolog sliding scale 3. Acute metabolic encephalopathy secondary to DKA - Resolved 4. Dental infection - On Unasyn - CT ordered to r/o abscess 5. Acute kidney injury secondary to dehydration - Resolved 6. Hypernatremia - Resolved 7. Hypophosphatemia - Improved 8. Hypokalemia - Improved 9. Left hemiparesis secondary to recent CVA 10. Chronic pain - Continue MSIR as needed
--- NOTE | 2017-09-16 21:12 | PN ---
Physical Exam: SUBJECTIVE: Patient seen and examined at bedside. No new complaints OBJECTIVE: Vital Signs Period Temp Pulse Resp BP Sys/Rapp Pulse Ox Last 24 Hr 97.9 F-98.7 F 66-71 20-20 103-125/54-70 99 GENERAL: The patient is awake, alert, and fully oriented, in no acute distress. NECK: Trachea midline, full range of motion, supple. LUNGS: Breath sounds equal, clear to auscultation bilaterally, no wheezes, no crackles, no accessory muscle use. HEART: Regular rate and rhythm, S1, S2 without murmur, rub or gallop. ABDOMEN: Soft, nontender, nondistended, normoactive bowel sounds, no guarding, no rebound, no hepatosplenomegaly, no masses. EXTREMITIES: 2+ pulses, warm, well-perfused, no edema. NEUROLOGICAL: Cranial nerves II through X grossly intact. Normal speech, gait not observed. SKIN: Warm, dry, normal turgor, no rashes or lesions noted Laboratory Results - last 24 hr 09/15/17 09/16/17 09/16/17 21:13 05:30 06:04 Sodium 140 Potassium 4.7 Chloride 104 Carbon Dioxide 25 Anion Gap 11 BUN 17 Creatinine 0.5 L Creat Clearance w eGFR > 60 POC Glucometer 199 396 Random Glucose 469 H* Calcium 7.9 L Phosphorus 3.5 Total Bilirubin 0.4 AST 36 ALT 35 Alkaline Phosphatase 122 H Total Protein 4.7 L Albumin 2.1 L Urine Color Urine Appearance Urine pH Ur Specific [place] Urine Protein Urine Glucose (UA) Urine Ketones Urine Blood Urine Nitrite Urine Bilirubin Urine Urobilinogen Ur Leukocyte Esterase 09/16/17 09/16/17 09/16/17 12:29 16:30 17:06 Sodium Potassium Chloride Carbon Dioxide Anion Gap BUN Creatinine Creat Clearance w eGFR POC Glucometer 221 211 Random Glucose Calcium Phosphorus Total Bilirubin AST ALT Alkaline Phosphatase Total Protein Albumin Urine Color Colorless Urine Appearance Clear Urine pH 7.0 D Ur Specific [place] 1.003 Urine Protein Negative Urine Glucose (UA) Negative Urine Ketones Negative Urine Blood Negative Urine Nitrite Negative Urine Bilirubin Negative Urine Urobilinogen Negative Ur Leukocyte Esterase Negative Active Medications Generic Name Dose Route Start Last Admin Trade Name Freq PRN Reason Stop Dose Admin Calcium Acetate 667 mg 09/15/17 17:30 09/16/17 17:13 Phoslo - PO 667 mg TIDCM [facility] Administration Heparin Sodium (Porcine) 5,000 unit 09/15/17 22:00 09/16/17 09:56 Heparin - SQ 5,000 unit BID [facility] Administration Ampicillin Sodium/Sulbactam 100 mls @ 200 mls/hr 09/15/17 15:00 09/16/17 21: 01 Sodium 3 gm/ Sodium Chloride IVPB 200 mls/hr Q6H-IV [facility] Administration Insulin Aspart 1 vial 09/15/17 22:00 09/15/17 21:16 Novolog Vial Sliding Scale - SQ Not Given HS [facility] Protocol Insulin Aspart 1 vial 09/15/17 16:30 09/16/17 17:12 Novolog Vial Sliding Scale - SQ 4 units TIDAC [facility] Administration Protocol Insulin Detemir 10 units 09/17/17 10:00 Levemir Vial SQ BID [facility] Insulin Detemir 5 units 09/16/17 22:00 Levemir Vial SQ 09/16/17 22:01 HS ONE Morphine Sulfate 60 mg 09/15/17 12:58 09/16/17 20:08 Msir - PO 60 mg Q6H PRN Administration PAIN LEVEL 7 - 10 ASSESSMENT/PLAN: The patient is a 47 yo f w/ PMH DM & multiple episodes of DKA who is being admitted to the ICU for management of DKA. #DKA (resolved) -> Hyperglycemia -endocrinology onboard -Discussed case w/ endocrinology; will provide 5 extra units of levemir tonight, then switch regimen to 10 BID -ISS TIDAC -secondary ISS HS -BGM ACHS and @ 3AM #Dental infection -unasyn 3g Q6H -CT of facial bones to rule out dental abscess as cause of hyperglycemia/DKA #suspected opioid dependence -as per nursing staff and medical record -Monitor for signs of withdrawal -morphine 60mg Q6H PRN #hyperkalemia colleenley 2/2 acidosis- resolved #FEN -no fluids indicated -monitor lytes -Diabetic Diet #Prophy -Hep SQ 5ku BID #Dispo -admit to med-surg -DC planning. Will DC once patient's sugars controlled. Visit type - Emergency Visit Emergency Visit: Yes ED Registration Date: 09/13/17 Care time: The patient presented to the Emergency Department on the above date and was hospitalized for further evaluation of their emergent condition. - New Patient This patient is new to me today: No - Critical Care Critical Care patient: No
[2017-09-17] MEDS: morphine SULFATE IMMEDIATE RELEASE 30 MG TAB PO PRN ×3 (01:16→13:00)
[2017-09-17] MEDS: AMPICILLIN NA/SULBACTAM NA 3 GM in SODIUM CHLORIDE 100 ML IVPB SCH ×3 (02:15→14:27)
[2017-09-17] MEDS: INSULIN SLIDING SCALE (NOVOLOG) 1 VIAL SQ SCH ×2 (06:25→11:51)
[2017-09-17] MEDS ORDERED: INSULIN DETEMIR 100 UNITS/ML MDV SQ SCH ×3 (07:00→10:00)
[2017-09-17] MEDS: CALCIUM ACETATE 667 MG CAPSULE (FP) PO SCH ×3 (08:49→17:09)
--- NOTE | 2017-09-17 08:49 | PN ---
Progress Note (short form) - Note Progress Note: Feels good Denies any complaints Blood sugar improving Vital Signs Period Temp Pulse Resp BP Sys/Rapp Pulse Ox Last 24 Hr 97.9 F-98.7 F 66-70 20-20 97-121/54-68 99-99 PE: AOx3 Neck: Supple, No JVD HEENT: PERRL, EOMI Lungs: CTA CVS: S1S2 Abd: Benign EXT: No edema Neuro: weakness of left side upper extremity > lower extremity CMP Sodium 140 mmol/L (136-145) 09/16/17 05:30 Potassium 4.7 mmol/L (3.5-5.1) 09/16/17 05:30 Chloride 104 mmol/L (98-107) 09/16/17 05:30 Carbon Dioxide 25 mmol/L (21-32) 09/16/17 05:30 Anion Gap 11 (8-16) 09/16/17 05:30 BUN 17 mg/dL (7-18) 09/16/17 05:30 Creatinine 0.5 mg/dL (0.55-1.02) L 09/16/17 05:30 Creat Clearance w eGFR > 60 (>60) 09/16/17 05:30 POC Glucometer 145 UNITS (80-120) 09/17/17 06:21 Random Glucose 469 mg/dL (74-106) H* 09/16/17 05:30 Lactic Acid 1.7 mmol/L (0.0-2.0) 09/13/17 06:00 Calcium 7.9 mg/dL (8.5-10.1) L 09/16/17 05:30 Phosphorus 3.5 mg/dL (2.5-4.9) 09/16/17 05:30 Magnesium 2.1 mg/dL (1.8-2.4) 09/15/17 05:05 Total Bilirubin 0.4 mg/dL (0.2-1.0) 09/16/17 05:30 AST 36 U/L (15-37) 09/16/17 05:30 ALT 35 U/L (12-78) 09/16/17 05:30 Alkaline Phosphatase 122 U/L (45-117) H 09/16/17 05:30 Creatine Kinase 227 IU/L (26-192) H 09/13/17 00:01 Creatine Kinase Index 1.2 % (0.0-5.0) 09/13/17 00:01 CK-MB (CK-2) 2.847 ng/mL (0.5-3.6) 09/13/17 00:01 Troponin I < 0.02 ng/ml (0.00-0.05) 09/13/17 00:01 Total Protein 4.7 g/dl (6.4-8.2) L 09/16/17 05:30 Albumin 2.1 g/dl (3.4-5.0) L 09/16/17 05:30 Current Medications Generic Name Dose Route Start Last Admin Trade Name Freq PRN Reason Stop Dose Admin Calcium Acetate 667 mg 09/15/17 17:30 09/16/17 17:13 Phoslo - PO 667 mg TIDCM [facility] Administration Heparin Sodium (Porcine) 5,000 unit 09/15/17 22:00 09/16/17 22:29 Heparin - SQ 5,000 unit BID [facility] Administration Ampicillin Sodium/Sulbactam 100 mls @ 200 mls/hr 09/15/17 15:00 09/17/17 02: 15 Sodium 3 gm/ Sodium Chloride IVPB 200 mls/hr Q6H-IV [facility] Administration Insulin Aspart 1 vial 09/15/17 22:00 09/16/17 22:30 Novolog Vial Sliding Scale - SQ 4 units HS [facility] Administration Protocol Insulin Aspart 1 vial 09/15/17 16:30 09/17/17 06:25 Novolog Vial Sliding Scale - SQ 2 units TIDAC [facility] Administration Protocol Insulin Detemir 10 units 09/17/17 08:27 Levemir Vial SQ BID [facility] Morphine Sulfate 60 mg 09/15/17 12:58 09/17/17 07:03 Msir - PO 60 mg Q6H PRN Administration PAIN LEVEL 7 - 10 AP DKA: resolved H/O CVA BGM improving, No Hypos Levemir 10 units BID starting tomorrow, Levemir 5 units at HS tonight BGM QACHS and at 3 AM Novolog SS coverage Will adjust Insulin dose as necessary Pump setting: Basal 1.05 units per hr and Bolus setting CHO ration 1:15 and Correction factor 1:50 electrolyte replacement as necessary D/C Neutraphos 2pkt BID Facial Bone CT report pending Will f/u Problem List - Problems (1) Diabetic keto-acidosis Code(s): E13.10 - OTH DIABETES MELLITUS WITH KETOACIDOSIS WITHOUT COMA Qualifiers: Diabetes mellitus type: due to underlying condition Diabetes mellitus complication detail: with coma Qualified Code(s): E08.11 - Diabetes mellitus due to underlying condition with ketoacidosis with coma (2) Hyperglycemia, unspecified Code(s): R73.9 - HYPERGLYCEMIA, UNSPECIFIED (3) Leukocytosis Code(s): D72.829 - ELEVATED WHITE BLOOD CELL COUNT, UNSPECIFIED
[2017-09-17] MEDS ORDERED: PT OWN MED DRAWER 7, Y5N ONE ×2 (09:22→14:08)
[2017-09-17] MEDS: HEPARIN NA (PORCINE) 5,000 UNITS/ML 1ML VIAL SQ SCH (09:28)
[2017-09-17 09:32] LABS: ANION GAP 11 (8-16); BLOOD UREA NITROGEN 14 mg/dL (7-18); CALCIUM 9.1 mg/dL (8.5-10.1); CHLORIDE 104 mmol/L (98-107); CO2 28 mmol/L (21-32); CREATININE 0.4 mg/dL (0.55-1.02); GLUCOSE,RANDOM 69 mg/dL (74-106); MAGNESIUM 2.4 mg/dL (1.8-2.4); PHOSPHOROUS 5.2 mg/dL (2.5-4.9); POTASSIUM 4.3 mmol/L (3.5-5.1); SODIUM 143 mmol/L (136-145)
[2017-09-17] MEDS ORDERED: INSULIN DETEMIR 100 UNITS/ML MDV SQ ONE (10:58)
[2017-09-17] MEDS ORDERED: INSULIN (NOVOLOG) ASPART 100 UNITS/ML 10ML VIAL ONE (11:40)
[2017-09-17] MEDS ORDERED: INSULIN SLIDING SCALE (NOVOLOG) 1 VIAL SQ SCH (11:45)
--- NOTE | 2017-09-17 11:57 | PN ---
Progress Note, Physician History of Present Illness: stable no new issues - Current Medication List Current Medications: Active Medications Calcium Acetate (Phoslo -) 667 mg PO TIDCM [facility] Last Admin: 09/17/17 11:52 Dose: 667 mg Heparin Sodium (Porcine) (Heparin -) 5,000 unit SQ BID [facility] Last Admin: 09/17/17 09:28 Dose: 5,000 unit Ampicillin Sodium/Sulbactam (Sodium 3 gm/ Sodium Chloride) 100 mls @ 200 mls/ hr IVPB Q6H-IV [facility] Last Admin: 09/17/17 09:27 Dose: 200 mls/hr Insulin Aspart (Novolog Vial Sliding Scale -) 1 vial SQ HS [facility] PRN Reason: Protocol Last Admin: 09/16/17 22:30 Dose: 4 units Insulin Aspart (Novolog Vial Sliding Scale -) 1 vial SQ TIDAC [facility] PRN Reason: Protocol Insulin Detemir (Levemir Vial) 10 units SQ BID@0700,2200 [facility] Last Admin: 09/17/17 09:27 Dose: 10 unit Morphine Sulfate (Msir -) 60 mg PO Q6H PRN PRN Reason: PAIN LEVEL 7 - 10 Last Admin: 09/17/17 07:03 Dose: 60 mg - Objective Vital Signs: Vital Signs Temperature 98.6 F 09/17/17 09:34 Pulse Rate 74 09/17/17 09:34 Respiratory Rate 20 09/17/17 09:34 Blood Pressure 110/64 09/17/17 09:34 O2 Sat by Pulse Oximetry (%) 99 09/16/17 21:00 Constitutional: Yes: No Distress, Calm Cardiovascular: Yes: Regular Rate and Rhythm Respiratory: Yes: Regular, CTA Bilaterally Gastrointestinal: Yes: Normal Bowel Sounds, Soft Musculoskeletal: Yes: WNL Extremities: Yes: WNL Neurological: Yes: Alert, Oriented Psychiatric: Yes: Alert, Oriented Labs: CBC, BMP 09/14/17 18:00 09/17/17 06:00 Assessment/Plan Problem List - Problems (1) Diabetic keto-acidosis Code(s): E13.10 - OTH DIABETES MELLITUS WITH KETOACIDOSIS WITHOUT COMA Qualifiers: Diabetes mellitus type: due to underlying condition Diabetes mellitus complication detail: with coma Qualified Code(s): E08.11 - Diabetes mellitus due to underlying condition with ketoacidosis with coma (2) Gingivitis Code(s): K05.10 - CHRONIC GINGIVITIS, PLAQUE INDUCED (3) Lactic acid acidosis Code(s): E87.2 - ACIDOSIS (4) Leukocytosis Code(s): D72.829 - ELEVATED WHITE BLOOD CELL COUNT, UNSPECIFIED (5) Anemia Code(s): D64.9 - ANEMIA, UNSPECIFIED (6) Cerebrovascular accident (CVA) Code(s): I63.9 - CEREBRAL INFARCTION, UNSPECIFIED Qualifiers: CVA mechanism: unspecified Qualified Code(s): I63.9 - Cerebral infarction, unspecified (7) Diabetes mellitus, insulin dependent (IDDM), uncontrolled Code(s): E10.65 - TYPE 1 DIABETES MELLITUS WITH HYPERGLYCEMIA (8) Diabetic gastroparesis associated with type 1 diabetes mellitus Code(s): E10.43 - TYPE 1 DIABETES W DIABETIC AUTONOMIC (POLY)NEUROPATHY; K31.84 - GASTROPARESIS (9) Opiate abuse, continuous Code(s): F11.10 - OPIOID ABUSE, UNCOMPLICATED plan get wbc on the patient if wbc normal switch to oral augmentin rest continue as per endo and teams
--- NOTE | 2017-09-17 14:55 | PN ---
Teaching Attending Note Name of Resident: Juvenal Blanc ATTENDING PHYSICIAN STATEMENT I saw and evaluated the patient. I reviewed the resident's note and discussed the case with the resident. I agree with the resident's findings and plan as documented. SUBJECTIVE: no pain in teeth , no CP or SOB. no N/V . OBJECTIVE: NAD HEENT: poor dentition , missing teeth , broken yellowish teeth in b/l upper jaws . no erythema in gingiva or in face , no LAP in neck CV: RRr Lungs: CTAb ext: no edema ASSESSMENT AND PLAN: 47 y/o lady with h/o DM , Recent R MCA CVA , gastroperesis , chronic pain and other medical problems who presented with confusion and was found to have DKA . 1- DKA : de to tubing dysfunction of Insulin pump. DKA resolved . sugars improved . 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 2- Dental cavities: CT scan of face done , with no evidence of facial abscess, but with evidence of dental infection . d/w Id . Augemntin recommended after d . repeat CBC. f/u with dentist 3- h/o stroke , cont asa will dc on statin . as LDL last admission was 80 . will dc on 10 of lipitor dispo : dc home today after reviewing CBC
[2017-09-17 15:38] VITALS: BP 116/67; PULSE 76; TEMP 99
[2017-09-17 15:57] LABS: BASO % 0.4 % (0-2.0); EOS % 1.7 % (0-4.5); HEMATOCRIT 29.1 % (32.4-45.2); HEMOGLOBIN 9.7 GM/dL (10.7-15.3); LYMPH % 42.9 % (8-40); MCHC 33.5 g/dl (32.0-36.0); MEAN CELL VOLUME 89.7 fl (80-96); MEAN PLT VOLUME 8.1 fl (7.5-11.1); MONO % 6.1 % (3.8-10.2); NEUT % 48.9 % (42.8-82.8); PLATELET COUNT 469 K/MM3 (134-434); RBC 3.25 M/mm3 (3.60-5.2); RDW 15.6 % (11.6-15.6); WHITE BLOOD COUNT 7.9 K/mm3 (4.0-10.0)
--- NOTE | 2017-09-17 20:18 | DS ---
Physical Exam: SUBJECTIVE: Patient seen and examined at bedside. Patient feels better today. No new complaints OBJECTIVE: Vital Signs Period Temp Pulse Resp BP Sys/Rapp Pulse Ox Last 24 Hr 98.4 F-99.0 F 70-76 20-20 97-116/59-67 99-99 PHYSICAL EXAM GENERAL: The patient is awake, alert, and fully oriented, in no acute distress. NECK: Trachea midline, full range of motion, supple. LUNGS: Breath sounds equal, clear to auscultation bilaterally, no wheezes, no crackles, no accessory muscle use. HEART: Regular rate and rhythm, S1, S2 without murmur, rub or gallop. ABDOMEN: Soft, nontender, nondistended, normoactive bowel sounds, no guarding, no rebound, no hepatosplenomegaly, no masses. EXTREMITIES: 2+ pulses, warm, well-perfused, no edema. NEUROLOGICAL: Cranial nerves II through X grossly intact. Normal speech, gait not observed. LABS Laboratory Results - last 24 hr 09/16/17 09/17/17 09/17/17 22:27 06:00 06:21 WBC RBC Hgb Hct MCV MCH MCHC RDW Plt Count MPV Neutrophils % Lymphocytes % Monocytes % Eosinophils % Basophils % Sodium 143 Potassium 4.3 Chloride 104 Carbon Dioxide 28 Anion Gap 11 BUN 14 Creatinine 0.4 L POC Glucometer 302 145 Random Glucose 69 L Calcium 9.1 Phosphorus 5.2 H Magnesium 2.4 09/17/17 09/17/17 09/17/17 11:50 15:00 16:52 WBC 7.9 RBC 3.25 L Hgb 9.7 L D Hct 29.1 L MCV 89.7 MCH 30.0 MCHC 33.5 RDW 15.6 Plt Count 469 H D MPV 8.1 Neutrophils % 48.9 Lymphocytes % 42.9 H Monocytes % 6.1 Eosinophils % 1.7 D Basophils % 0.4 Sodium Potassium Chloride Carbon Dioxide Anion Gap BUN Creatinine POC Glucometer 83 145 Random Glucose Calcium Phosphorus Magnesium HOSPITAL COURSE: Date of Admission:09/13/17 The patient is a 47 y/o female w/ PMH active tobacco use, opioid dependence, HLD , DM who was recently admitted to [facility] for DKA and discharged on 09/11. She was brought into [facility] by her . The states that he came home to find the patient on the floor and "out of it." In the ED, Patient was able to follow simple commands, but was unable to answer questions appropriately. She was found to have a glucose on 1298, a lactic acid of 3.3 and and Anion gap of 31 w/ Ph 7.19. A Chest XRay at this time was WNL. A CT of the head was negative for acute findings. The patient was transferred to the [facility] ICU for further management. Endocrinology was consulted. She was treated with an insulin drip, IVF and supplemental potassium. Once stabilized, the patient complained of dental pain. A CT of the facial bones showed multiple periapical lucencies in the maxillary teeth concerning for dental infection. The patient was treated with unasyn. The patient improved clinically with treatment. Her anion gap closed, her lactic acidosis resolved and her sugars were moderately controlled. The patient was discharged home with a prescription for augmentin 875-125 BID for 7 days and instructions to follow up with a dentist to evaluate her teeth. The patient was also advised to follow up with her primary care physician within one week of discharge. At the request of the patient, contact information for several endocrinologists were provided as the patient was considering switching. The patient was advised to call and make an appointment at the customer engagement representative of her choice. Date of Discharge: 09/17/17 Minutes to complete discharge: 50 Discharge Summary Reason For Visit: ALTERED MENTAL STATUS Condition: Improved - Instructions Diet, Activity, Other Instructions: You were admitted for the treatment of your high blood sugars. You were also treated for a dental infection. We are sending you home with a medication to help fight your dental infection. This medication is called Augmentin. You should take 875mg of this medication twice per day for the next 7 days. Please take your medication as prescribed for the maritime officer you are prescribed it, even if you feel better. We have decreased your statin dose from 80 to 10. Please begin taking your new dose starting tonight. We have changed some of your diabetes medications/requirements. Please check your blood sugar three times per day with meals and before you go to bed. You should STOP using your insulin pump until you follow up with your customer engagement representative after discharge. You should take 10 units of Levemir (long acting insulin) twice per day. You should cover yourself with short acting insulin according to the following sliding scale. Use this sliding scale if you are taking your blood sugar before a meal: If your blood sugar is 101-150, give yourself 2 units of insulin If your blood sugar is 151-200, give yourself 3 units of insulin If your blood sugar is 201-250, give yourself 4 units of insulin If your blood sugar is 251-300, give yourself 5 units of insulin If your blood sugar is 301-350, give yourself 6 units of insulin If your blood sugar is 351-400, give yourself 7 units of insulin If your blood sugar is > 400, give yourself 7 units of insulin Use this sliding scale if you are taking your blood sugar before bed: If your blood sugar is 101-150, do NOT give yourself insulin If your blood sugar is 151-200, do NOT give yourself insulin If your blood sugar is 201-250, give yourself 2 units of insulin If your blood sugar is 251-300, give yourself 3 units of insulin If your blood sugar is 301-350, give yourself 4 units of insulin If your blood sugar is 351-400, give yourself 5 units of insulin If your blood sugar is > 400, give yourself 6 units of insulin Only take your short acting insulin if you intend to eat. If you experience symptoms of low blood sugar including weakness, sweating, dizziness or fatigue, Please drink some juice and call your doctor. You should follow up with your primary care physician within one week of discharge home. You should also follow up with your customer engagement representative within one week of discharge home. You should also follow up with a dentist as your CT scan showed that there may be an infection of your teeth. If you begin to feel chest pain, shortness of breath, abdominal pain or if any of your symptoms get worse, please call your doctor or return to the emergency department. Referrals: Genaro Chapman MD [Staff Physician] - Doreen Tripp [Primary Care Provider] - Tyshawn Gama MD [Staff Physician] - Disposition: HOME - Home Medications Comprehensive Discharge Medication List: Ambulatory Orders Aspirin [ASA -] 325 mg PO DAILY 09/16/17 Morphine *Immediate Release* [Msir -] 60 mg PO Q6H 09/16/17 Amoxicillin/Potassium Clav [Augmentin 875-125 Tablet] 1 each PO BID #15 tablet 09/17/17 Atorvastatin Ca [Lipitor] 10 mg PO HS #30 tablet 09/17/17 Insulin Aspart [Novolog Flexpen] See Protocol SQ ACHS #2 insuln.pen 09/17/17 Insulin Detemir [Levemir Flextouch] 10 unit SQ BID #6 insuln.pen 09/17/17 This patient is new to me today: No Emergency Visit: Yes ED Registration Date: 09/13/17 Care time: The patient presented to the Emergency Department on the above date and was hospitalized for further evaluation of their emergent condition. Critical Care patient: No - Discharge Referral Referred to [facility] No
== END 2017-09-17 19:02 | disposition home or self-care (01) | DRG 919 ==
LOC: FER 21:22 → JICU 09-13 03:30 → J8W 09-15 14:22
PROVIDERS: ADMIT Internal Medicine; ATTEND Internal Medicine
DX: T85.694A Other mechanical complication of insulin pump, initial encounter (principal); G93.41 Metabolic encephalopathy; E10.10 Type 1 diabetes mellitus with ketoacidosis without coma; I69.354 Hemiplegia and hemiparesis following cerebral infarction affecting left non-dominant side; N17.9 Acute kidney failure, unspecified; F11.20 Opioid dependence, uncomplicated; E87.2 Acidosis; E87.1 Hypo-osmolality and hyponatremia; E87.0 Hyperosmolality and hypernatremia; E87.5 Hyperkalemia; F17.200 Nicotine dependence, unspecified, uncomplicated; E78.5 Hyperlipidemia, unspecified; E10.43 Type 1 diabetes mellitus with diabetic autonomic (poly)neuropathy; K31.84 Gastroparesis; G43.909 Migraine, unspecified, not intractable, without status migrainosus; M54.5 Low back pain; D72.829 Elevated white blood cell count, unspecified; K05.10 Chronic gingivitis, plaque induced; K04.7 Periapical abscess without sinus; E10.21 Type 1 diabetes mellitus with diabetic nephropathy; E83.39 Other disorders of phosphorus metabolism; E87.6 Hypokalemia; G89.29 Other chronic pain; R50.9 Fever, unspecified; D64.9 Anemia, unspecified; E86.0 Dehydration; Z96.41 Presence of insulin pump (external) (internal)
CPT/HCPCS: 36415; 70450-TC; 70486-TC; 71045-TC-FY; 80048; 80053; 80307; 81003; 81015; 82550; 82553; 82803; 82962; 83605; 83735; 84100; 84484; 85025; 85027; 87040; 87086; 93005; 99284-25; J1644; J7030

== ENCOUNTER 2017-10-23 16:31 | Inpatient (IN) | payer OTHER ==
--- NOTE | 2017-10-23 16:34 | PDOC ---
Rapid Medical Evaluation Time Seen by Provider: 10/23/17 16:33 Medical Evaluation: Allergies Allergy/AdvReac Type Severity Reaction Status Date / Time No Known Allergies Allergy Verified 10/23/17 16:32 10/23/17 16:33 I have performed a brief in-person evaluation of this patient. The patient presents with a chief complaint of: vomiting ever since discharged for DKA last month, unable to eat at home, went to ENT "throat swollen", has an appt with GI Dr. Ortiz on Friday. "sugars have been fine at home", doesn't remember last BM Pertinent physical exam findings: vomiting, anxious I have ordered the following: labs, urine, xray The patient will proceed to the ED for further evaluation. Discharge Disposition - Diagnosis Vomiting - Referrals - Patient Instructions - Post Discharge Activity
[2017-10-23] MEDS ORDERED: SODIUM CHLORIDE 1,000 ML IV STA (17:25)
[2017-10-23] MEDS ORDERED: PANTOPRAZOLE SODIUM 40 MG in SODIUM CHLORIDE 100 ML IVPB ONE (17:48)
[2017-10-23] MEDS ORDERED: morphine CARPU-JECT 2 MG/1 ML DISP.SYRIN IVPUSH ONE (17:48)
[2017-10-23 17:54] LABS: BASO % 0.7 % (0-2.0); EOS % 0.1 % (0-4.5); HEMATOCRIT 37.9 % (32.4-45.2); HEMOGLOBIN 12.7 GM/dL (10.7-15.3); LYMPH % 25.1 % (8-40); MCH 29.6 pg (25.7-33.7); MCHC 33.6 g/dl (32.0-36.0); MEAN CELL VOLUME 88.3 fl (80-96); MEAN PLT VOLUME 8.6 fl (7.5-11.1); MONO % 3.7 % (3.8-10.2); NEUT % 70.4 % (42.8-82.8); PLATELET COUNT 424 K/MM3 (134-434); RBC 4.29 M/mm3 (3.60-5.2); RDW 15.9 % (11.6-15.6); WHITE BLOOD COUNT 11.1 K/mm3 (4.0-10.0)
--- NOTE | 2017-10-23 18:08 | PDOC ---
History of Present Illness - General Chief Complaint: Nausea/Vomiting Stated Complaint: Vomiting/Diarrhea Time Seen by Provider: 10/23/17 16:33 History Source: Patient Exam Limitations: No Limitations - History of Present Illness Travel History: No Initial Comments: 10/23/17 18:26 47 y/o female with hx of gerd. chronic lbp c/o nausea, vomiting, and dysphagia x 1 month. Pt states had an ENT exam with scoping and was told the gerd was worsening her s/s. He recommended to f/u with dr oglesby and she has an appointment this friday with. Pt states due to worsening s/s, she did not want to wait and decided to come to the ED. Pt states no fever, diarrhea, urinary complaints, or abdominal pain. Pt does c/o of rib soreness secondary to frequent wretching. 10/23/17 18:29 Timing/Duration: reports: getting worse, intermittent Quality: reports: moderate Abdominal Pain Onset Location: reports: epigastric Pain Radiation: reports: no radiation Activities at Onset: reports: none Aggravating Factors: improves with: None Alleviating Factors: improves with: None Past History - Travel Traveled outside of the country in the last 30 days: No - Past Medical History Allergies/Adverse Reactions: Allergies Allergy/AdvReac Type Severity Reaction Status Date / Time No Known Allergies Allergy Verified 10/23/17 16:32 Home Medications: Ambulatory Orders Aspirin [ASA -] 325 mg PO DAILY 09/16/17 Morphine *Immediate Release* [Msir -] 60 mg PO Q6H 09/16/17 Atorvastatin Ca [Lipitor] 10 mg PO HS #30 tablet 09/17/17 Insulin Aspart [Novolog Flexpen] See Protocol SQ ACHS #2 insuln.pen 09/17/17 Insulin Detemir [Levemir Flextouch] 10 unit SQ BID #6 insuln.pen 09/17/17 CVA: Yes COPD: No Diabetes: Yes (TYPE I, DKA) GI Disorders: Yes (GASTROPARESIS) Other medical history: chronic back pain - Surgical History Cholecystectomy: Yes (AGE 19) - Immunization History Td Vaccination: Yes Immunization Up to Date: Yes - Suicide/Smoking/Psychosocial Hx Smoking Status: Yes Smoking History: Former smoker Years of Tobacco Use: 15 Have you smoked in the past 12 months: Yes Number of Cigarettes Smoked Daily: 20 Information on smoking cessation initiated: No 'Breaking Loose' booklet given: 08/15/17 Hx Alcohol Use: No Drug/Substance Use Hx: No Substance Use Type: Marijuana Hx Substance Use Treatment: No Patient Lives Alone: Yes Abd/GI Specific PMHX - Complaint Specific PMHX GERD: Yes Review of Systems - Review of Systems Able to Perform ROS?: No Constitutional: Yes: Loss of Appetite, Weakness, Unintentional Wgt. Loss HEENTM: No: Symptoms Reported Respiratory: No: Symptoms reported Cardiac (ROS): No: Symptoms Reported ABD/GI: Yes: Nausea, Poor Appetite, Poor Fluid Intake, Vomiting. No: Constipated, Diarrhea : No: Symptoms Reported Musculoskeletal: No: Symptoms Reported Integumentary: No: Symptoms Reported Neurological: No: Symptoms reported Endocrine: No: Symptoms Reported *Physical Exam - Vital Signs Last Vital Signs Temp Pulse Resp BP Pulse Ox 98.4 F 99 H 20 121/78 100 10/23/17 16:35 10/23/17 16:35 10/23/17 16:35 10/23/17 16:35 10/23/17 16:35 - Physical Exam General Appearance: Yes: Appropriately Dressed, Thin. No: Apparent Distress HEENT: positive: EOMI, UMA, TMs Normal, Pharynx Normal. negative: Pale Conjunctivae Neck: positive: Normal Thyroid, Supple Respiratory/Chest: positive: Lungs Clear, Normal Breath Sounds. negative: Respiratory Distress, Accessory Muscle Use Cardiovascular: positive: Regular Rhythm, Regular Rate. negative: Murmur Gastrointestinal/Abdominal: positive: Soft. negative: Tenderness Extremity: positive: Normal Capillary Refill. negative: Pedal Edema Integumentary: positive: Dry, Warm, Moist Neurologic: positive: Motor Strength 5/5 (ambulatory) ED Treatment Course - LABORATORY CBC & Chemistry Diagram: 10/28/17 06:15 10/27/17 06:35 Medical Decision Making - Medical Decision Making 10/23/17 18:47 Pt with nausea, vomiting, dysphagia x 1 month. Pt with reflux causing esophageal edema as per ent md. Pt pending gi consult with dr oglesby this friday but states she is weak and needs fluids. Pt is a diabetic but has not checked her sugar and often can't take her meds secondary to dysphagia. Labs, ivf, protonix, ua , utox, upreg, and mso4 ordered 10/23/17 18:51 Laboratory Tests 10/23/17 10/23/17 10/23/17 12:05 12:05 12:05 WBC Hgb Hct Plt Count Neutrophils % Monocytes % PT with INR 11.60 INR 1.03 Sodium 143 Potassium 4.0 Carbon Dioxide 25 Anion Gap 8 BUN 22 H Creatinine 0.6 Random Glucose 103 Lactic Acid 1.6 Calcium 9.1 Total Bilirubin 0.3 D AST 14 L ALT 17 Albumin 3.6 Lipase Acetone, Qual Pending 10/23/17 10/23/17 12:05 12:05 WBC 11.1 H D Hgb 12.7 D Hct 37.9 D Plt Count 424 Neutrophils % 70.4 D Monocytes % 3.7 L PT with INR INR Sodium Potassium Carbon Dioxide Anion Gap BUN Creatinine Random Glucose Lactic Acid Calcium Total Bilirubin AST ALT Albumin Lipase 90 Acetone, Qual Pt states wants to be admitted. will await acetone. *DC/Admit/Observation/Transfer Diagnosis at time of Disposition: Diabetic gastroparesis associated with type 1 diabetes mellitus, Dysphagia, Dehydration, mild Vomiting Qualifiers: Vomiting type: unspecified Vomiting Intractability: non-intractable Nausea presence: with nausea Qualified Code(s): R11.2 - Nausea with vomiting, unspecified - Referrals - Patient Instructions - Post Discharge Activity
[2017-10-23 18:17] LABS: INR 1.03 (0.82-1.09); PROTHROMBIN TIME (PATIENT) 11.6 SEC (9.7-13.0)
[2017-10-23 18:23] LABS: ALBUMIN 3.6 g/dl (3.4-5.0); ANION GAP 8 (8-16); BILIRUBIN,TOTAL 0.3 mg/dL (0.2-1.0); BLOOD UREA NITROGEN 22 mg/dL (7-18); CALCIUM 9.1 mg/dL (8.5-10.1); CHLORIDE 110 mmol/L (98-107); CO2 25 mmol/L (21-32); CREATININE 0.6 mg/dL (0.55-1.02); GLUCOSE,RANDOM 103 mg/dL (74-106); SGOT/AST 14 U/L (15-37); SGPT/ALT 17 U/L (12-78); SODIUM 143 mmol/L (136-145); TOT PROT 7.2 g/dl (6.4-8.2)
[2017-10-23 18:24] LABS: ALK PHOS 69 U/L (45-117)
[2017-10-23] MEDS ORDERED: morphine SULFATE 4 MG/ML VIAL ONE (18:28)
[2017-10-23] MEDS ORDERED: PANTOPRAZOLE SODIUM 40 MG/100 ML BAG IVPB ONE (18:28)
[2017-10-23 19:45] LABS: URINE APPEARANCE SLCLOUDY; URINE BILIRUBIN NEGATIVE (<2.0 mg/dL); URINE COLOR YELLOW; URINE GLUCOSE (UA) 3+ (NEGATIVE); URINE KETONE 1+ (NEGATIVE); URINE LEUK ESTERASE TRACE (NEGATIVE); URINE NITRITE NEGATIVE (NEGATIVE); URINE UROBILINOGEN NEGATIVE mg/dL (0.2-1.0)
[2017-10-23 19:46] LABS: URINE PROTEIN 1+ (NEGATIVE)
[2017-10-23] MEDS ORDERED: METOCLOPRAMIDE HCL INJECTION 10 MG/2 ML VIAL IVPB ONE (19:48)
[2017-10-23 19:55] LABS: ACETONE SERUM NEGATIVE (NEGATIVE)
[2017-10-23 20:00] LABS: EPI CELLS RARE /HPF (FEW); URINE MUCUS RARE
[2017-10-23] MEDS ORDERED: HYDROmorphone HCL CARPU-JECT 1 MG/1 ML DISP.SYRIN IVPUSH ONE (20:07)
[2017-10-23] MEDS ORDERED: METOCLOPRAMIDE HCL INJECTION 10 MG/2 ML VIAL ONE (20:14)
[2017-10-23] MEDS ORDERED: morphine CARPU-JECT 4 MG/1 ML DISP.SYRIN IVPUSH ONE (20:17)
--- NOTE | 2017-10-23 20:21 | PDOC ---
*Physical Exam - Vital Signs Last Vital Signs Temp Pulse Resp BP Pulse Ox 98.4 F 99 H 20 121/78 100 10/23/17 16:35 10/23/17 16:35 10/23/17 16:35 10/23/17 16:35 10/23/17 16:35 - Physical Exam General Appearance: Yes: Appropriately Dressed ED Treatment Course - LABORATORY CBC & Chemistry Diagram: 10/23/17 12:05 10/23/17 12:05 - ADDITIONAL ORDERS Additional order review: Laboratory Results 10/23/17 10/23/17 10/23/17 17:50 12:05 12:05 PT with INR INR Sodium Potassium Chloride Carbon Dioxide Anion Gap BUN Creatinine Creat Clearance w eGFR Random Glucose Lactic Acid 1.6 Calcium Total Bilirubin AST ALT Alkaline Phosphatase Total Protein Albumin Lipase 90 Urine Color Yellow Urine Appearance Slcloudy Urine pH 7.0 Ur Specific [place] 1.027 Urine Protein 1+ H Urine Glucose (UA) 3+ H Urine Ketones 1+ H Urine Blood Negative Urine Nitrite Negative Urine Bilirubin Negative Urine Urobilinogen Negative Ur Leukocyte Esterase Trace Urine WBC (Auto) 11 Urine RBC (Auto) 3 Ur Epithelial Cells Rare Urine Mucus Rare Acetone, Qual 10/23/17 10/23/17 12:05 12:05 PT with INR 11.60 INR 1.03 Sodium 143 Potassium 4.0 Chloride 110 H Carbon Dioxide 25 Anion Gap 8 BUN 22 H Creatinine 0.6 Creat Clearance w eGFR > 60 Random Glucose 103 Lactic Acid Calcium 9.1 Total Bilirubin 0.3 D AST 14 L ALT 17 Alkaline Phosphatase 69 Total Protein 7.2 Albumin 3.6 Lipase Urine Color Urine Appearance Urine pH Ur Specific [place] Urine Protein Urine Glucose (UA) Urine Ketones Urine Blood Urine Nitrite Urine Bilirubin Urine Urobilinogen Ur Leukocyte Esterase Urine WBC (Auto) Urine RBC (Auto) Ur Epithelial Cells Urine Mucus Acetone, Qual Negative L 10/23/17 12:05 RBC 4.29 D MCV 88.3 MCHC 33.6 RDW 15.9 H MPV 8.6 Neutrophils % 70.4 D Lymphocytes % 25.1 D Monocytes % 3.7 L Eosinophils % 0.1 D Basophils % 0.7 - Medications Given in the ED: ED Medications Discontinued Medications Generic Name Dose Route Start Last Admin Trade Name Freq PRN Reason Stop Dose Admin Sodium Chloride 1,000 mls @ 1,000 mls/hr 10/23/17 17:25 10/23/17 18:44 Normal Saline - IV 10/23/17 18:24 1,000 mls/hr ASDIR STA Administration Pantoprazole Sodium 40 mg/ 100 mls @ 200 mls/hr 10/23/17 17:48 10/23/17 18:44 Sodium Chloride IVPB 10/23/17 18:17 200 mls/hr ONCE ONE Administration Metoclopramide HCl 10 mg 10/23/17 19:48 10/23/17 20:19 Reglan Injection - IVPB 10/23/17 19:49 10 mg ONCE ONE Administration Morphine Sulfate 4 mg 10/23/17 17:48 10/23/17 18:44 Morphine Injection - IVPUSH 10/23/17 17:49 4 mg ONCE ONE Administration Medical Decision Making - Medical Decision Making 10/23/17 20:22 Patient is complaining of nausea. unable to tolerate PO and asking for pain meds for her chronic pain. 10/23/17 20:28 gave reglan Iv and morphine IV x 1, patient is currently drinking water. and eating apple sauce. plan to d/c if PO is tolerated. 10/23/17 20:35 patient noted to vomiting after reglan dose. unable to tolerate PO. Ketone + 1 and BUN. plan to keep NPO place in obs 10/23/17 21:06 Patient signed out to Dr. Sosa/ Dr. Reynolds for observation *DC/Admit/Observation/Transfer Diagnosis at time of Disposition: Diabetic gastroparesis associated with type 1 diabetes mellitus, Dehydration, mild Vomiting Qualifiers: Vomiting type: unspecified Vomiting Intractability: non-intractable Nausea presence: with nausea Qualified Code(s): R11.2 - Nausea with vomiting, unspecified Dysphagia Qualifiers: Dysphagia type: unspecified Qualified Code(s): R13.10 - Dysphagia, unspecified - Discharge Dispostion Admit: Yes - Referrals - Patient Instructions - Post Discharge Activity
[2017-10-23] MEDS ORDERED: SODIUM CHLORIDE 1,000 ML IV SCH (22:30)
[2017-10-23] MEDS ORDERED: INSULIN (LEVEMIR) 100 UNITS/ML UNITS SQ SCH (22:45)
--- NOTE | 2017-10-23 23:03 | HP ---
CHIEF COMPLAINT: vomiting, dysphagia HISTORY OF PRESENT ILLNESS: Patient is a 47 yo F with a PMHx of CVA (july), IDDM, Gastroparesis, Chronic back pain, GERD, presented to the ED because of dyspagia/odynophagia and vomiting over the past month. Patient says the dysphagia started with solids but now its to solids ands liquids. Patient says she has been vomiting constantly with loss of appetite. She reports a 15 pound weight loss in the last month. She also says she has non-radiating, intermittent lower abdominal that started a week ago. She says she saw ENT who said her throat was "swollen". She has an appointment with GI (Dr. Ortiz) for Friday but said she couldn't wait to see him. Patient also says she has been constipated and has not had a BM in over a week. She denies Chest pain, sob, lightheadedness, dysuria, fevers, chills, recent travel, sick contacts. ER course was notable for: (1) Morphine 4mg, Reglan, protonix Recent Travel: denies PAST MEDICAL HISTORY: per HPI PAST SURGICAL HISTORY: cholecystectomy (age 19) Social History: Drugs: admits to opioid use, 60mg morphine daily Family History: Allergies No Known Allergies Allergy (Verified 10/23/17 16:32) HOME MEDICATIONS: Home Medications Medication Instructions Recorded Aspirin [ASA -] 325 mg PO DAILY 09/16/17 Morphine *Immediate Release* [Msir 60 mg PO Q6H 09/16/17 -] Atorvastatin Ca [Lipitor] 10 mg PO HS #30 tablet 09/17/17 Insulin Aspart [Novolog Flexpen] See Protocol SQ ACHS #2 insuln.pen 09/17/17 Insulin Detemir [Levemir Flextouch] 10 unit SQ BID #6 insuln.pen 09/17/17 REVIEW OF SYSTEMS CONSTITUTIONAL: loss of appetite, weight change Absent: fever, chills, diaphoresis, generalized weakness, malaise, HEENT: throat swelling, difficulty swallowing, Absent: rhinorrhea, nasal congestion, throat pain, mouth swelling, ear pain, eye pain, visual changes CARDIOVASCULAR: Absent: chest pain, syncope, palpitations, irregular heart rate, lightheadedness , peripheral edema RESPIRATORY: cough, sob, Absent: dyspnea with exertion, orthopnea, wheezing, stridor, hemoptysis GASTROINTESTINAL: abdominal pain, nausea, vomiting, constipation Absent: vomiting, diarrhea, melena, hematochezia GENITOURINARY: Absent: dysuria, frequency, urgency, hesitancy, hematuria, flank pain, genital pain MUSCULOSKELETAL: back pain, knee pain Absent: myalgia, arthralgia, joint swelling, neck pain ENDOCRINE: weight loss Absent: unexplained weight gain, heat intolerance, cold intolerance Absent: anxiety, depression, suicidal or homicidal ideation, hallucinations. PHYSICAL EXAMINATION Vital Signs - 24 hr 10/23/17 10/23/17 16:35 21:02 Temperature 98.4 F Pulse Rate 99 H Pulse Rate [ 67 Right Apical] Respiratory 20 18 Rate Blood Pressure 121/78 Blood Pressure 128/72 [Left Arm] O2 Sat by Pulse 100 100 Oximetry (%) Limited Physical due to patient not fully cooperating GENERAL: laying down, lethargic EYES: sclera anicteric, conjunctiva clear. EARS, NOSE, THROAT: oropharynx clear without exudates. dry mucous membranes NECK:without lymphadenopathy, JVD, or masses. LUNGS: Breath sounds equal, clear to auscultation bilaterally. No wheezes, and no crackles. HEART: Regular rate and rhythm, normal S1 and S2 without murmur, rub or gallop. ABDOMEN: +BS, periumbilical tenderness to palpation. LOWER EXTREMITIES: 2+ pulses, warm, No peripheral edema. Rectal: Normal rectal tone, no ext. hemorrhoids, No visible blood Laboratory Results - last 24 hr 10/23/17 10/23/17 10/23/17 12:05 12:05 12:05 WBC RBC Hgb Hct MCV MCH MCHC RDW Plt Count MPV Neutrophils % Lymphocytes % Monocytes % Eosinophils % Basophils % PT with INR 11.60 INR 1.03 Sodium 143 Potassium 4.0 Chloride 110 H Carbon Dioxide 25 Anion Gap 8 BUN 22 H Creatinine 0.6 Creat Clearance w eGFR > 60 Random Glucose 103 Lactic Acid 1.6 Calcium 9.1 Total Bilirubin 0.3 D AST 14 L ALT 17 Alkaline Phosphatase 69 Total Protein 7.2 Albumin 3.6 Lipase Urine Color Urine Appearance Urine pH Ur Specific [place] Urine Protein Urine Glucose (UA) Urine Ketones Urine Blood Urine Nitrite Urine Bilirubin Urine Urobilinogen Ur Leukocyte Esterase Urine WBC (Auto) Urine RBC (Auto) Ur Epithelial Cells Urine Mucus Acetone, Qual Negative L 0410/23/17 10/23/17 12:05 12:05 17:50 WBC 11.1 H D RBC 4.29 D Hgb 12.7 D Hct 37.9 D MCV 88.3 MCH 29.6 MCHC 33.6 RDW 15.9 H Plt Count 424 MPV 8.6 Neutrophils % 70.4 D Lymphocytes % 25.1 D Monocytes % 3.7 L Eosinophils % 0.1 D Basophils % 0.7 PT with INR INR Sodium Potassium Chloride Carbon Dioxide Anion Gap BUN Creatinine Creat Clearance w eGFR Random Glucose Lactic Acid Calcium Total Bilirubin AST ALT Alkaline Phosphatase Total Protein Albumin Lipase 90 Urine Color Yellow Urine Appearance Slcloudy Urine pH 7.0 Ur Specific [place] 1.027 Urine Protein 1+ H Urine Glucose (UA) 3+ H Urine Ketones 1+ H Urine Blood Negative Urine Nitrite Negative Urine Bilirubin Negative Urine Urobilinogen Negative Ur Leukocyte Esterase Trace Urine WBC (Auto) 11 Urine RBC (Auto) 3 Ur Epithelial Cells Rare Urine Mucus Rare Acetone, Qual ASSESSMENT/PLAN: 47 yo F with a PMHx of CVA (july), IDDM, Gastroparesis, Chronic back pain, GERD, presented to the ED because of dyspagia and vomiting over the past month. #Dys/odynophagia w/ Nausea/Vomiting - IVF NS @125ml/hour -GI consulted: Dr. Bipin Aleman (QTC 443) -monitor electrolytes -NPO -FOBT #IDDM -currently hypoglycemic -BGM's q4h -ISS - 1x D50 given. Glucose in 40's. -Held home Levemir 10 U. Cont. when needed #Constipation -likely from Opioid use vs. Gastroparesis -Colace -Senna -Reglan #Hx of CVA -Cont. ASA -Lipitor #FEN -D5 07/01 NS @ 125ml/hour -WNL -NPO #DVT -SCDs Visit type - Emergency Visit Emergency Visit: Yes ED Registration Date: 10/23/17 Care time: The patient presented to the Emergency Department on the above date and was hospitalized for further evaluation of their emergent condition. - New Patient This patient is new to me today: Yes Date on this admission: 10/24/17 - Critical Care Critical Care patient: No Hospitalist Screening - Colonoscopy Questionnaire Colonoscopy Questionnaire: Colonoscopy Questionnaire - Patient: 50 - 75 years old and never had a screening colonoscopy: Unknown History of colon or rectal polyps, or CA: Unknown History of IBD, Crohn's disease or UC: Unknown History of abdominal radiation therapy as a child: Unknown - Relative: 1 with colon or rectal CA, or polyps at age 60 or younger: Unknown Colon or rectal CA diagnosed at age 45 or younger: Unknown Multiple relatives with colon or rectal CA: Unknown - Outcome: Screening Result: Negative Screen
[2017-10-23] MEDS ORDERED: DEXTROSE 50%-WATER 25 GM/50 ML DISP.SYRIN ONE (23:13)
[2017-10-23] MEDS ORDERED: DEXTROSE 50%-WATER 25 GM/50 ML DISP.SYRIN IVPUSH ONE (23:22)
[2017-10-24] MEDS ORDERED: morphine SULFATE 4 MG/ML VIAL ONE (00:23)
[2017-10-24] MEDS: ATORVASTATIN CA 10 MG TABLET (FP) PO SCH ×2 (00:23→22:49)
[2017-10-24] MEDS ORDERED: SODIUM CHLORIDE 1,000 ML IV SCH (00:51)
[2017-10-24] MEDS ORDERED: SENNOSIDES 8.6MG TABLET (FP) PO PRN (00:54)
[2017-10-24] MEDS ORDERED: DOCUSATE SODIUM 100 MG CAPSULE (FP) PO ONE (00:55)
[2017-10-24] MEDS ORDERED: SENNOSIDES 8.6MG TABLET (FP) PO ONE (00:55)
[2017-10-24] MEDS ORDERED: DEXTROSE 5%-0.45% SALINE 1,000 ML IV SCH (03:00)
[2017-10-24 03:54] VITALS: BMI 21.2
[2017-10-24] MEDS: DOCUSATE SODIUM 100 MG CAPSULE (FP) PO SCH ×3 (06:15→22:46)
[2017-10-24] MEDS: INSULIN SLIDING SCALE (NOVOLOG) 1 VIAL SQ SCH ×4 (06:24→22:30)
--- NOTE | 2017-10-24 07:29 | PN ---
Teaching Attending Note Name of Resident: Nancy Sosa ATTENDING PHYSICIAN STATEMENT I saw and evaluated the patient. I reviewed the resident's note and discussed the case with the resident. I agree with the resident's findings and plan as documented. SUBJECTIVE: 47 y/o F presented c/o dysphagia to solids and now liquids with anorexia for one month and weight loss. OBJECTIVE: GEN: Alert and oriented times 3 HEENT: NC, PERRLA, EOMI, MMM CVS: RRR, S1, S2 Lungs: CTA Abd: Soft, NT BS+ but slightly diminished Ext: Nl rom, no Edema CBCD WBC 11.1 K/mm3 (4.0-10.0) H D 10/23/17 12:05 RBC 4.29 M/mm3 (3.60-5.2) D 10/23/17 12:05 Hgb 12.7 GM/dL (10.7-15.3) D 10/23/17 12:05 Hct 37.9 % (32.4-45.2) D 10/23/17 12:05 MCV 88.3 fl (80-96) 10/23/17 12:05 MCHC 33.6 g/dl (32.0-36.0) 10/23/17 12:05 RDW 15.9 % (11.6-15.6) H 10/23/17 12:05 Plt Count 424 K/MM3 (134-434) 10/23/17 12:05 MPV 8.6 fl (7.5-11.1) 10/23/17 12:05 CMP Sodium 143 mmol/L (136-145) 10/23/17 12:05 Potassium 4.0 mmol/L (3.5-5.1) 10/23/17 12:05 Chloride 110 mmol/L (98-107) H 10/23/17 12:05 Carbon Dioxide 25 mmol/L (21-32) 10/23/17 12:05 Anion Gap 8 (8-16) 10/23/17 12:05 BUN 22 mg/dL (7-18) H 10/23/17 12:05 Creatinine 0.6 mg/dL (0.55-1.02) 10/23/17 12:05 Creat Clearance w eGFR > 60 (>60) 10/23/17 12:05 Calcium 9.1 mg/dL (8.5-10.1) 10/23/17 12:05 Total Bilirubin 0.3 mg/dL (0.2-1.0) D 10/23/17 12:05 AST 14 U/L (15-37) L 10/23/17 12:05 ALT 17 U/L (12-78) 10/23/17 12:05 Alkaline Phosphatase 69 U/L (45-117) 10/23/17 12:05 Total Protein 7.2 g/dl (6.4-8.2) 10/23/17 12:05 Albumin 3.6 g/dl (3.4-5.0) 10/23/17 12:05 ASSESSMENT AND PLAN: Gastroparesis and odynophagia with reported weight loss. NPO, IVF D5NS, protonix, zofran, FOBT GI consult for evaluation EGD and Colonoscopy IDDM- RISS AC/HS DVT prophylaxis
--- NOTE | 2017-10-24 07:39 | PN ---
Physical Exam: SUBJECTIVE: Patient seen and examined - No major overnight events; VSS, afebrile; Pt endorses 1 month of dysphagia with solid foods and now liquids, in addition to chronic regurgitation with feeds; pt also endorses MSK chest pain and back pain due to chronic retching; denies f/c/n/v/d, GOMEZ, vision changes, sob, cough, ab pain, LE edema, FNDs OBJECTIVE: Vital Signs Intake & Output 10/21/17 10/22/17 10/23/17 10/24/17 23:59 23:59 23:59 23:59 Intake Total 650 Balance 650 Weight 55.792 kg 56.245 kg Period Temp Pulse Resp BP Sys/Rapp Pulse Ox Last 24 Hr 97.5 F-98.7 F 64-99 18-20 101-132/59-78 100-100 GENERAL: Middle aged woman, NAD HEAD: NCAt EYES: PERRL, extraocular movements intact, sclera anicteric, conjunctiva clear. No ptosis. ENT: Poor dentition. No erythema, swelling or tonsillar exudates. Ears normal, nares patent, oropharynx clear without exudates, moist mucous membranes. NECK: Trachea midline, full range of motion, supple. LUNGS: CTABL, no wheezes, no crackles, no accessory muscle use. HEART: Regular rate and rhythm, S1, S2 without murmur, rub or gallop. ABDOMEN: Soft, nontender, nondistended, normoactive bowel sounds, no guarding, no rebound, no hepatosplenomegaly, no masses. EXTREMITIES: 2+ pulses, warm, well-perfused, no edema. NEUROLOGICAL: Cranial nerves II through XII grossly intact. Normal speech, gait not observed. PSYCH: Normal mood, normal affect. SKIN: Warm, dry, normal turgor, no rashes or lesions noted Laboratory Results - last 24 hr CBC, BMP 10/24/17 07:07 10/24/17 06:50 10/23/17 12:05 10/23/17 12:05 10/23/17 10/23/17 10/23/17 12:05 12:05 12:05 WBC RBC Hgb Hct MCV MCH MCHC RDW Plt Count MPV Neutrophils % Lymphocytes % Monocytes % Eosinophils % Basophils % PT with INR 11.60 INR 1.03 Sodium 143 Potassium 4.0 Chloride 110 H Carbon Dioxide 25 Anion Gap 8 BUN 22 H Creatinine 0.6 Creat Clearance w eGFR > 60 POC Glucometer Random Glucose 103 Lactic Acid 1.6 Calcium 9.1 Total Bilirubin 0.3 D AST 14 L ALT 17 Alkaline Phosphatase 69 Total Protein 7.2 Albumin 3.6 Lipase Urine Color Urine Appearance Urine pH Ur Specific [place] Urine Protein Urine Glucose (UA) Urine Ketones Urine Blood Urine Nitrite Urine Bilirubin Urine Urobilinogen Ur Leukocyte Esterase Urine WBC (Auto) Urine RBC (Auto) Ur Epithelial Cells Urine Mucus Stool Occult Blood Acetone, Qual Negative L 10/23/17 10/23/17 10/23/17 12:05 12:05 17:50 WBC 11.1 H D RBC 4.29 D Hgb 12.7 D Hct 37.9 D MCV 88.3 MCH 29.6 MCHC 33.6 RDW 15.9 H Plt Count 424 MPV 8.6 Neutrophils % 70.4 D Lymphocytes % 25.1 D Monocytes % 3.7 L Eosinophils % 0.1 D Basophils % 0.7 PT with INR INR Sodium Potassium Chloride Carbon Dioxide Anion Gap BUN Creatinine Creat Clearance w eGFR POC Glucometer Random Glucose Lactic Acid Calcium Total Bilirubin AST ALT Alkaline Phosphatase Total Protein Albumin Lipase 90 Urine Color Yellow Urine Appearance Slcloudy Urine pH 7.0 Ur Specific [place] 1.027 Urine Protein 1+ H Urine Glucose (UA) 3+ H Urine Ketones 1+ H Urine Blood Negative Urine Nitrite Negative Urine Bilirubin Negative Urine Urobilinogen Negative Ur Leukocyte Esterase Trace Urine WBC (Auto) 11 Urine RBC (Auto) 3 Ur Epithelial Cells Rare Urine Mucus Rare Stool Occult Blood Acetone, Qual 10/23/17 10/24/17 10/24/17 23:10 00:19 00:34 WBC RBC Hgb Hct MCV MCH MCHC RDW Plt Count MPV Neutrophils % Lymphocytes % Monocytes % Eosinophils % Basophils % PT with INR INR Sodium Potassium Chloride Carbon Dioxide Anion Gap BUN Creatinine Creat Clearance w eGFR POC Glucometer < 50 [id number] Random Glucose Lactic Acid Calcium Total Bilirubin AST ALT Alkaline Phosphatase Total Protein Albumin Lipase Urine Color Urine Appearance Urine pH Ur Specific [place] Urine Protein Urine Glucose (UA) Urine Ketones Urine Blood Urine Nitrite Urine Bilirubin Urine Urobilinogen Ur Leukocyte Esterase Urine WBC (Auto) Urine RBC (Auto) Ur Epithelial Cells Urine Mucus Stool Occult Blood Negative Acetone, Qual 10/24/17 02:39 WBC RBC Hgb Hct MCV MCH MCHC RDW Plt Count MPV Neutrophils % Lymphocytes % Monocytes % Eosinophils % Basophils % PT with INR INR Sodium Potassium Chloride Carbon Dioxide Anion Gap BUN Creatinine Creat Clearance w eGFR POC Glucometer 76 Random Glucose Lactic Acid Calcium Total Bilirubin AST ALT Alkaline Phosphatase Total Protein Albumin Lipase Urine Color Urine Appearance Urine pH Ur Specific [place] Urine Protein Urine Glucose (UA) Urine Ketones Urine Blood Urine Nitrite Urine Bilirubin Urine Urobilinogen Ur Leukocyte Esterase Urine WBC (Auto) Urine RBC (Auto) Ur Epithelial Cells Urine Mucus Stool Occult Blood Acetone, Qual Active Medications Generic Name Dose Route Start Last Admin Trade Name Freq PRN Reason Stop Dose Admin Aspirin 325 mg 10/24/17 10:00 Asa - PO DAILY [facility] Atorvastatin Calcium 10 mg 10/23/17 22:45 10/24/17 00:23 Lipitor - PO 10 mg HS [facility] Administration Docusate Sodium 100 mg 10/24/17 06:00 10/24/17 06:15 Colace - PO Not Given TID [facility] Dextrose/Sodium Chloride 1,000 mls @ 125 mls/hr 10/24/17 03:00 10/24/17 03:00 D5-1/2ns - IV 125 mls/hr ASDIR [facility] Administration Insulin Aspart 1 vial 10/24/17 07:00 10/24/17 06:24 Novolog Vial Sliding Scale - SQ Not Given ACHS [facility] Protocol Metoclopramide HCl 10 mg 10/24/17 00:58 Reglan Injection - IVPUSH Q6H PRN NAUSEA AND/OR VOMITING Pantoprazole Sodium 40 mg 10/24/17 10:00 Protonix - PO DAILY [facility] Senna 2 tab 10/24/17 22:00 Senna - PO HS [facility] Urine culture pending Ab XR 10/23- notable for previous GB removal. Constipation. ASSESSMENT/PLAN: 47 yo F with a PMHx of CVA (july), IDDM, Gastroparesis, Chronic back pain, GERD, presented to the ED because of dyspagia and vomiting over the past month. Pt received esophagram this PM, scheduled for EGD on Friday for further evaluation of dysphagia. #Chronic dysphagia with solids and now liquids - d/c D5w, started on NS for IVFs -GI consulted- Dr. Voss - PPI -Reglan (QTC 443) -monitor lytes -NPO #IDDM - hyperglycemic to 400s this AM; given 10units novolog; 1x D50 given. Glucose in 40's. -BGM's q4h -ISS -continue holding levemir with possible restart tomorro #Constipation - likely secondary to chronic opioid abuse -Colace -Senna - Miralax daily #Hx of CVA -Cont. ASA -Lipitor #FEN -NS 125cc/hr -daily lytes - Clear diet #DVT -SCDs Plan discussed with Dr. Marleni Camacho, PGY1 Visit type - Emergency Visit Emergency Visit: Yes ED Registration Date: 10/23/17 Care time: The patient presented to the Emergency Department on the above date and was hospitalized for further evaluation of their emergent condition. - New Patient This patient is new to me today: Yes Date on this admission: 10/24/17 - Critical Care Critical Care patient: No - Discharge Referral Referred to [facility] No
[2017-10-24 07:53] LABS: HEMATOCRIT 34.8 % (32.4-45.2); HEMOGLOBIN 11.5 GM/dL (10.7-15.3); MCH 29.5 pg (25.7-33.7); MCHC 33.2 g/dl (32.0-36.0); MEAN CELL VOLUME 89.1 fl (80-96); MEAN PLT VOLUME 8.7 fl (7.5-11.1); PLATELET COUNT 374 K/MM3 (134-434); RBC 3.91 M/mm3 (3.60-5.2); RDW 15.9 % (11.6-15.6); WHITE BLOOD COUNT 7.7 K/mm3 (4.0-10.0)
[2017-10-24 08:19] LABS: ALBUMIN 3.3 g/dl (3.4-5.0); ANION GAP 3 (8-16); BILIRUBIN,TOTAL 0.4 mg/dL (0.2-1.0); BLOOD UREA NITROGEN 23 mg/dL (7-18); CALCIUM 8.3 mg/dL (8.5-10.1); CHLORIDE 113 mmol/L (98-107); CO2 26 mmol/L (21-32); CREATININE 0.5 mg/dL (0.55-1.02); GLUCOSE,RANDOM 135 mg/dL (74-106); MAGNESIUM 2.1 mg/dL (1.8-2.4); POTASSIUM 3.9 mmol/L (3.5-5.1); SGOT/AST 14 U/L (15-37); SGPT/ALT 17 U/L (12-78); SODIUM 142 mmol/L (136-145); TOT PROT 6.4 g/dl (6.4-8.2)
[2017-10-24 08:20] LABS: ALK PHOS 63 U/L (45-117)
[2017-10-24] MEDS ORDERED: morphine CARPU-JECT 2 MG/1 ML DISP.SYRIN IVPUSH PRN (09:01)
[2017-10-24] MEDS: morphine SULFATE 4 MG/ML VIAL IVPUSH PRN ×3 (09:24→22:49)
[2017-10-24] MEDS: ASPIRIN 325 MG TABLET PO SCH (09:26)
[2017-10-24] MEDS: POLYETHYLENE GLYCOL 3350 119 GM BTL PO SCH (09:28)
[2017-10-24] MEDS: PANTOPRAZOLE 40 MG TABLET (FP) PO SCH (09:29)
--- NOTE | 2017-10-24 09:46 | EKG ---
Test Reason : Blood Pressure : / mmHG Vent. Rate : 065 BPM Atrial Rate : 065 BPM P-R Int : 138 ms QRS Dur : 088 ms QT Int : 426 ms P-R-T Axes : 077 083 047 degrees QTc Int : 443 ms NORMAL SINUS RHYTHM NORMAL ECG Confirmed by LUIS LAWLER MD ([id number]) on 10/24/2017 9:46:05 AM Referred By: Confirmed By:LUIS LAWLER MD
[2017-10-24] MEDS ORDERED: INSULIN (NOVOLOG) ASPART 100 UNITS/ML 10ML VIAL SQ ONE (11:13)
[2017-10-24] MEDS: SODIUM CHLORIDE 1,000 ML IV SCH (12:07)
--- NOTE | 2017-10-24 12:33 | CON.GI ---
Consult Consult Specialty:: GI Reason for Consultation:: progressive dysphagia - History of Present Illness History of Present Illness: chart reviewed. Events noted. As per initial intake: Patient is a 47 yo F with a PMHx of CVA (july), IDDM , Gastroparesis, Chronic back pain, GERD, presented to the ED because of dyspagia/odynophagia and vomiting over the past month. Patient says the dysphagia started with solids but now its to solids ands liquids. Patient says she has been vomiting constantly with loss of appetite. She reports a 15 pound weight loss in the last month. She also says she has non-radiating, intermittent lower abdominal that started a week ago. She says she saw ENT who said her throat was "swollen". She has an appointment with GI (Dr. Ortiz) for Friday but said she couldn't wait to see him. Patient also says she has been constipated and has not had a BM in over a week. She denies Chest pain, sob, lightheadedness, dysuria, fevers, chills, recent travel, sick contacts. At the time of this encountered the patient is sitting comfortably in her bed. No drooling, or dysphonia noted. No odynophagia, or GERD-like symptoms. Reports difficulty swallowing solids x 1-2 months and more recently liquids. Reports Immediately regurgitating back whenever she takes by mouth. Denies hematemesis, melena, hematochezia, low-grade fever, chills, jaundice, chronic GERD-like symptoms. Does not recall having upper endoscopy. Had ENT evaluation recently. Was prescribed Protonix for swollen throat, per patient. History of 10-15 pounds weight loss due to inability to adequately eat. Complaints of constipation. 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 - Past Surgical History Past Surgical History: Yes: Cholecystectomy - Alcohol/Substance Use Hx Alcohol Use: No History of Substance Use: reports: None - Smoking History Smoking history: Former smoker Have you smoked in the past 12 months: Yes Aproximately how many cigarettes per day: 20 - Social History ADL: Independent History of Recent Travel: No Home Medications - Allergies Allergies/Adverse Reactions: Allergies Allergy/AdvReac Type Severity Reaction Status Date / Time No Known Allergies Allergy Verified 10/23/17 16:32 - Home Medications Home Medications: Ambulatory Orders Aspirin [ASA -] 325 mg PO DAILY 09/16/17 Morphine *Immediate Release* [Msir -] 60 mg PO Q6H 09/16/17 Atorvastatin Ca [Lipitor] 10 mg PO HS #30 tablet 09/17/17 Insulin Aspart [Novolog Flexpen] See Protocol SQ ACHS #2 insuln.pen 09/17/17 Insulin Detemir [Levemir Flextouch] 10 unit SQ BID #6 insuln.pen 09/17/17 Family Disease History - Family Disease History Family Disease History: Heart Disease: Father (cad) Review of Systems Findings/Remarks: as per H&P and HPI Physical Exam-GI Vital Signs: Vital Signs Temperature 98.7 F 10/24/17 08:15 Pulse Rate 73 10/24/17 08:15 Respiratory Rate 18 10/24/17 08:15 Blood Pressure 116/70 10/24/17 08:15 O2 Sat by Pulse Oximetry (%) 100 10/23/17 21:02 Constitutional: Yes: No Distress, Calm, Thin Eyes: Yes: Conjunctiva Clear HENT: Yes: Atraumatic Neck: Yes: Supple Cardiovascular: Yes: Regular Rate and Rhythm Respiratory: Yes: Regular Gastrointestinal Inspection: No: Distention ...Auscultate: Yes: Normoactive Bowel Sounds ...Palpate: No: Firm/Rigid, Guarding, Tenderness, Tenderness, Rebound Neurological: Yes: Alert, Oriented Labs: CBC, BMP 10/24/17 07:07 10/24/17 06:50 INR, PTT INR 1.03 (0.82-1.09) 10/23/17 12:05 Laboratory Last Values WBC 7.7 K/mm3 (4.0-10.0) D 10/24/17 07:07 RBC 3.91 M/mm3 (3.60-5.2) 10/24/17 07:07 Hgb 11.5 GM/dL (10.7-15.3) 10/24/17 07:07 Hct 34.8 % (32.4-45.2) 10/24/17 07:07 MCV 89.1 fl (80-96) 10/24/17 07:07 MCH 29.5 pg (25.7-33.7) 10/24/17 07:07 MCHC 33.2 g/dl (32.0-36.0) 10/24/17 07:07 RDW 15.9 % (11.6-15.6) H 10/24/17 07:07 Plt Count 374 K/MM3 (134-434) 10/24/17 07:07 MPV 8.7 fl (7.5-11.1) 10/24/17 07:07 Neutrophils % 70.4 % (42.8-82.8) D 10/23/17 12:05 Lymphocytes % 25.1 % (8-40) D 10/23/17 12:05 Monocytes % 3.7 % (3.8-10.2) L 10/23/17 12:05 Eosinophils % 0.1 % (0-4.5) D 10/23/17 12:05 Basophils % 0.7 % (0-2.0) 10/23/17 12:05 PT with INR 11.60 SEC (9.7-13.0) 10/23/17 12:05 INR 1.03 (0.82-1.09) 10/23/17 12:05 Sodium 142 mmol/L (136-145) 10/24/17 06:50 Potassium 3.9 mmol/L (3.5-5.1) 10/24/17 06:50 Chloride 113 mmol/L (98-107) H 10/24/17 06:50 Carbon Dioxide 26 mmol/L (21-32) 10/24/17 06:50 Anion Gap 3 (8-16) L 10/24/17 06:50 BUN 23 mg/dL (7-18) H 10/24/17 06:50 Creatinine 0.5 mg/dL (0.55-1.02) L 10/24/17 06:50 Creat Clearance w eGFR > 60 (>60) 10/24/17 06:50 POC Glucometer 139 UNITS (80-120) 10/24/17 06:21 Random Glucose 135 mg/dL (74-106) H 10/24/17 06:50 Lactic Acid 1.6 mmol/L (0.0-2.0) 10/23/17 12:05 Calcium 8.3 mg/dL (8.5-10.1) L 10/24/17 06:50 Phosphorus 4.0 mg/dL (2.5-4.9) 10/24/17 06:50 Magnesium 2.1 mg/dL (1.8-2.4) 10/24/17 06:50 Total Bilirubin 0.4 mg/dL (0.2-1.0) D 10/24/17 06:50 AST 14 U/L (15-37) L 10/24/17 06:50 ALT 17 U/L (12-78) 10/24/17 06:50 Alkaline Phosphatase 63 U/L (45-117) 10/24/17 06:50 Total Protein 6.4 g/dl (6.4-8.2) 10/24/17 06:50 Albumin 3.3 g/dl (3.4-5.0) L 10/24/17 06:50 Lipase 90 U/L (73-393) 10/23/17 12:05 Urine Color Yellow 10/23/17 17:50 Urine Appearance Slcloudy 10/23/17 17:50 Urine pH 7.0 (5.0-8.0) 10/23/17 17:50 Ur Specific [place] 1.027 (1.001-1.035) 10/23/17 17:50 Urine Protein 1+ (NEGATIVE) H 10/23/17 17:50 Urine Glucose (UA) 3+ (NEGATIVE) H 10/23/17 17:50 Urine Ketones 1+ (NEGATIVE) H 10/23/17 17:50 Urine Blood Negative (NEGATIVE) 10/23/17 17:50 Urine Nitrite Negative (NEGATIVE) 10/23/17 17:50 Urine Bilirubin Negative (<2.0 mg/dL) 10/23/17 17:50 Urine Urobilinogen Negative mg/dL (0.2-1.0) 10/23/17 17:50 Ur Leukocyte Esterase Trace (NEGATIVE) 10/23/17 17:50 Urine WBC (Auto) 11 /hpf (3-5) 10/23/17 17:50 Urine RBC (Auto) 3 /hpf (0-3) 10/23/17 17:50 Ur Epithelial Cells Rare /HPF (FEW) 10/23/17 17:50 Urine Mucus Rare 10/23/17 17:50 Stool Occult Blood Negative (NEGATIVE) 10/24/17 00:19 Acetone, Qual Negative (NEGATIVE) L 10/23/17 12:05 Imaging - Results X-ray: Report Reviewed ( status post cholecystectomy. Constipation) Problem List - Problems (1) Dehydration, mild Code(s): E86.0 - DEHYDRATION (2) Dysphagia Code(s): R13.10 - DYSPHAGIA, UNSPECIFIED Qualifiers: Dysphagia type: unspecified Qualified Code(s): R13.10 - Dysphagia, unspecified Assessment/Plan No signs of complete obstruction. We will order an esophagogram and schedule for EGD to evaluate for intraluminal lesions. Maintain IV, by mouth hydration as tolerated. Discussed with the patient in detail and answered all her questions. If there is no record of gastric emptying study being done, consider obtaining one to rule out gastroparesis.
[2017-10-24] MEDS: METOCLOPRAMIDE HCL INJECTION 10 MG/2 ML VIAL IVPUSH PRN ×2 (15:16→22:49)
--- NOTE | 2017-10-24 15:25 | PN ---
Teaching Attending Note Name of Resident: Roberto Camacho ATTENDING PHYSICIAN STATEMENT I saw and evaluated the patient. I reviewed the resident's note and discussed the case with the resident. I agree with the resident's findings and plan as documented with exceptions below. SUBJECTIVE: patient seen and examined. no new complaints currently, no new nausea or vomiting, abdominal pain, and distension. No bowel movements, but has been passing gas. OBJECTIVE: Vital Signs Period Temp Pulse Resp BP Sys/Rapp Pulse Ox Last 24 Hr 97.5 F-98.7 F 64-99 18-20 101-132/59-78 100-100 Intake & Output 10/21/17 10/22/17 10/23/17 10/24/17 23:59 23:59 23:59 23:59 Intake Total 650 Output Total 1 Balance 649 Weight 123 lb 124 lb General: sitting in bed in no acute distress Chest; CTAB, no rales or wheezing abdomen: soft, positive bowel sounds, no distension appreciated, no tenderness currently Home Medication List Medication Instructions Recorded Confirmed Type Aspirin [ASA -] 325 mg PO DAILY 09/16/17 10/23/17 History Morphine *Immediate Release* [Msir 60 mg PO Q6H 09/16/17 10/23/17 History -] Active Medications Generic Name Dose Route Start Last Admin Trade Name Freq PRN Reason Stop Dose Admin Aspirin 325 mg 10/24/17 10:00 10/24/17 09:26 Asa - PO 325 mg DAILY [facility] Administration Atorvastatin Calcium 10 mg 10/23/17 22:45 10/24/17 00:23 Lipitor - PO 10 mg HS [facility] Administration Docusate Sodium 100 mg 10/24/17 06:00 10/24/17 15:07 Colace - PO 100 mg TID [facility] Administration Sodium Chloride 1,000 mls @ 75 mls/hr 10/24/17 11:30 10/24/17 12:07 Normal Saline - IV 75 mls/hr ASDIR [facility] Administration Insulin Aspart 1 vial 10/24/17 07:00 10/24/17 11:17 Novolog Vial Sliding Scale - SQ 12 units ACHS [facility] Administration Protocol Metoclopramide HCl 10 mg 10/24/17 00:58 10/24/17 15:16 Reglan Injection - IVPUSH 10 mg Q6H PRN Administration NAUSEA AND/OR VOMITING Morphine Sulfate 1 mg 10/24/17 09:10 10/24/17 09:24 Morphine Sulfate IVPUSH 1 mg Q6H PRN Administration PAIN LEVEL 6-10 Pantoprazole Sodium 40 mg 10/24/17 10:00 10/24/17 09:29 Protonix - PO 40 mg DAILY [facility] Administration Polyethylene Glycol 17 gm 10/24/17 10:00 10/24/17 09:28 Miralax (For Daily Use) - PO 17 gm DAILY [facility] Administration Senna 2 tab 10/24/17 22:00 Senna - PO HS [facility] Laboratory Results - last 24 hr 10/23/17 10/23/17 10/23/17 12:05 12:05 12:05 WBC RBC Hgb Hct MCV MCH MCHC RDW Plt Count MPV Neutrophils % Lymphocytes % Monocytes % Eosinophils % Basophils % PT with INR 11.60 INR 1.03 Sodium 143 Potassium 4.0 Chloride 110 H Carbon Dioxide 25 Anion Gap 8 BUN 22 H Creatinine 0.6 Creat Clearance w eGFR > 60 POC Glucometer Random Glucose 103 Lactic Acid 1.6 Calcium 9.1 Phosphorus Magnesium Total Bilirubin 0.3 D AST 14 L ALT 17 Alkaline Phosphatase 69 Total Protein 7.2 Albumin 3.6 Lipase Urine Color Urine Appearance Urine pH Ur Specific [place] Urine Protein Urine Glucose (UA) Urine Ketones Urine Blood Urine Nitrite Urine Bilirubin Urine Urobilinogen Ur Leukocyte Esterase Urine WBC (Auto) Urine RBC (Auto) Ur Epithelial Cells Urine Mucus Stool Occult Blood Acetone, Qual Negative L 10/23/17 10/23/17 10/23/17 12:05 12:05 17:50 WBC 11.1 H D RBC 4.29 D Hgb 12.7 D Hct 37.9 D MCV 88.3 MCH 29.6 MCHC 33.6 RDW 15.9 H Plt Count 424 MPV 8.6 Neutrophils % 70.4 D Lymphocytes % 25.1 D Monocytes % 3.7 L Eosinophils % 0.1 D Basophils % 0.7 PT with INR INR Sodium Potassium Chloride Carbon Dioxide Anion Gap BUN Creatinine Creat Clearance w eGFR POC Glucometer Random Glucose Lactic Acid Calcium Phosphorus Magnesium Total Bilirubin AST ALT Alkaline Phosphatase Total Protein Albumin Lipase 90 Urine Color Yellow Urine Appearance Slcloudy Urine pH 7.0 Ur Specific [place] 1.027 Urine Protein 1+ H Urine Glucose (UA) 3+ H Urine Ketones 1+ H Urine Blood Negative Urine Nitrite Negative Urine Bilirubin Negative Urine Urobilinogen Negative Ur Leukocyte Esterase Trace Urine WBC (Auto) 11 Urine RBC (Auto) 3 Ur Epithelial Cells Rare Urine Mucus Rare Stool Occult Blood Acetone, Qual 10/23/17 10/24/17 10/24/17 23:10 00:19 00:34 WBC RBC Hgb Hct MCV MCH MCHC RDW Plt Count MPV Neutrophils % Lymphocytes % Monocytes % Eosinophils % Basophils % PT with INR INR Sodium Potassium Chloride Carbon Dioxide Anion Gap BUN Creatinine Creat Clearance w eGFR POC Glucometer < 50 142.51941 Random Glucose Lactic Acid Calcium Phosphorus Magnesium Total Bilirubin AST ALT Alkaline Phosphatase Total Protein Albumin Lipase Urine Color Urine Appearance Urine pH Ur Specific [place] Urine Protein Urine Glucose (UA) Urine Ketones Urine Blood Urine Nitrite Urine Bilirubin Urine Urobilinogen Ur Leukocyte Esterase Urine WBC (Auto) Urine RBC (Auto) Ur Epithelial Cells Urine Mucus Stool Occult Blood Negative Acetone, Qual 10/24/17 10/24/17 10/24/17 02:39 06:21 06:50 WBC RBC Hgb Hct MCV MCH MCHC RDW Plt Count MPV Neutrophils % Lymphocytes % Monocytes % Eosinophils % Basophils % PT with INR INR Sodium 142 Potassium 3.9 Chloride 113 H Carbon Dioxide 26 Anion Gap 3 L BUN 23 H Creatinine 0.5 L Creat Clearance w eGFR > 60 POC Glucometer 76 139 Random Glucose 135 H Lactic Acid Calcium 8.3 L Phosphorus 4.0 Magnesium 2.1 Total Bilirubin 0.4 D AST 14 L ALT 17 Alkaline Phosphatase 63 Total Protein 6.4 Albumin 3.3 L Lipase Urine Color Urine Appearance Urine pH Ur Specific [place] Urine Protein Urine Glucose (UA) Urine Ketones Urine Blood Urine Nitrite Urine Bilirubin Urine Urobilinogen Ur Leukocyte Esterase Urine WBC (Auto) Urine RBC (Auto) Ur Epithelial Cells Urine Mucus Stool Occult Blood Acetone, Qual 10/24/17 10/24/17 07:07 11:07 WBC 7.7 D RBC 3.91 Hgb 11.5 Hct 34.8 MCV 89.1 MCH 29.5 MCHC 33.2 RDW 15.9 H Plt Count 374 MPV 8.7 Neutrophils % Lymphocytes % Monocytes % Eosinophils % Basophils % PT with INR INR Sodium Potassium Chloride Carbon Dioxide Anion Gap BUN Creatinine Creat Clearance w eGFR POC Glucometer 418 Random Glucose Lactic Acid Calcium Phosphorus Magnesium Total Bilirubin AST ALT Alkaline Phosphatase Total Protein Albumin Lipase Urine Color Urine Appearance Urine pH Ur Specific [place] Urine Protein Urine Glucose (UA) Urine Ketones Urine Blood Urine Nitrite Urine Bilirubin Urine Urobilinogen Ur Leukocyte Esterase Urine WBC (Auto) Urine RBC (Auto) Ur Epithelial Cells Urine Mucus Stool Occult Blood Acetone, Qual ASSESSMENT AND PLAN: 47 yof with CVA, chronic back pain on high dose opioids, gastroparesis, admitted with dysphagia/odynophagia, constipation, weight loss -Dysphagia/Odynophagia -Constipation, suspect opioid induced -CVA -Chronic back on opioids -DM Plan: GI input noted. follow up for esophagogram/EGD. NPO, PPI Aggressive bowel regimen. Add miralax. patient counseled on discussing opioid taper to off with her PCP, patient willing. Continue reglan. COntinue ASA/statin. D/c D5. NS, advance PO per GI. ISS Dispo pending GI input and clinical course. Plan discussed with patient in detail, all questions answered.
[2017-10-24] MEDS: SENNOSIDES 8.6MG TABLET (FP) PO SCH (22:46)
[2017-10-25] MEDS ORDERED: INSULIN (NOVOLOG) ASPART 100 UNITS/ML 10ML VIAL SQ ONE (00:20)
[2017-10-25 01:52] LABS: ANION GAP 11 (8-16); BLOOD UREA NITROGEN 18 mg/dL (7-18); CALCIUM 8.1 mg/dL (8.5-10.1); CHLORIDE 103 mmol/L (98-107); CO2 20 mmol/L (21-32); CREATININE 0.7 mg/dL (0.55-1.02); POTASSIUM 4.2 mmol/L (3.5-5.1); SODIUM 134 mmol/L (136-145)
[2017-10-25 02:08] LABS: GLUCOSE,RANDOM 570 mg/dL (74-106)
[2017-10-25] MEDS: morphine SULFATE 4 MG/ML VIAL IVPUSH PRN ×4 (04:37→23:37)
[2017-10-25] MEDS: INSULIN SLIDING SCALE (NOVOLOG) 1 VIAL SQ SCH ×4 (06:15→21:06)
[2017-10-25] MEDS: DOCUSATE SODIUM 100 MG CAPSULE (FP) PO SCH ×3 (06:15→21:12)
[2017-10-25] MEDS: METOCLOPRAMIDE HCL INJECTION 10 MG/2 ML VIAL IVPUSH PRN ×2 (09:12→19:08)
--- NOTE | 2017-10-25 09:20 | PN ---
Teaching Attending Note Name of Resident: Mekhi Fuentes ATTENDING PHYSICIAN STATEMENT I saw and evaluated the patient. I reviewed the resident's note and discussed the case with the resident. I agree with the resident's findings and plan as documented with exceptions below. SUBJECTIVE: Patient seen and examined. nausea, vomitting overnight, unable to tolerate PO much, now reports diarrhea. No new fevers or chills. OBJECTIVE: Vital Signs Period Temp Pulse Resp BP Sys/Arpp Pulse Ox Last 24 Hr 98.0 F-98.6 F 66-81 -18 113-133/69-76 Intake & Output 10/22/17 10/23/17 10/24/17 10/25/17 23:59 23:59 23:59 23:59 Intake Total 1955 720 Output Total 1 Balance 1954 720 Weight 123 lb 124 lb General: lying in bed, cachectic but in no acute distress Chest: CTAB, no rales or wheezing abdomen:soft, NT, ND, positive bowel sounds extremities: no edema Home Medication List Medication Instructions Recorded Confirmed Type Aspirin [ASA -] 325 mg PO DAILY 09/16/17 10/23/17 History Morphine *Immediate Release* [Msir 60 mg PO Q6H 09/16/17 10/23/17 History -] Active Medications Generic Name Dose Route Start Last Admin Trade Name Freq PRN Reason Stop Dose Admin Aspirin 325 mg 10/24/17 10:00 10/24/17 09:26 Asa - PO 325 mg DAILY [facility] Administration Atorvastatin Calcium 10 mg 10/23/17 22:45 10/24/17 22:49 Lipitor - PO 10 mg HS [facility] Administration Docusate Sodium 100 mg 10/24/17 06:00 10/25/17 06:15 Colace - PO Not Given TID [facility] Sodium Chloride 1,000 mls @ 75 mls/hr 10/24/17 11:30 10/24/17 12:07 Normal Saline - IV 75 mls/hr ASDIR [facility] Administration Insulin Aspart 1 vial 10/24/17 07:00 10/25/17 06:15 Novolog Vial Sliding Scale - SQ Not Given ACHS [facility] Protocol Insulin Detemir 10 units 10/25/17 10:00 Levemir Vial SQ BID [facility] Metoclopramide HCl 10 mg 10/24/17 00:58 10/25/17 09:12 Reglan Injection - IVPUSH 10 mg Q6H PRN Administration NAUSEA AND/OR VOMITING Morphine Sulfate 1 mg 10/24/17 09:10 10/25/17 04:37 Morphine Sulfate IVPUSH 1 mg Q6H PRN Administration PAIN LEVEL 6-10 Pantoprazole Sodium 40 mg 10/24/17 10:00 10/24/17 09:29 Protonix - PO 40 mg DAILY [facility] Administration Polyethylene Glycol 17 gm 10/24/17 10:00 10/24/17 09:28 Miralax (For Daily Use) - PO 17 gm DAILY [facility] Administration Senna 2 tab 10/24/17 22:00 10/24/17 22:46 Senna - PO Not Given HS [facility] Laboratory Results - last 24 hr 10/24/17 10/24/17 10/24/17 11:07 16:45 22:30 WBC RBC Hgb Hct MCV MCH MCHC RDW Plt Count MPV Neutrophils % Lymphocytes % Monocytes % Eosinophils % Basophils % Sodium Potassium Chloride Carbon Dioxide Anion Gap BUN Creatinine POC Glucometer 418 113 Random Glucose 630 H* Calcium 10/25/17 10/25/17 10/25/17 00:30 06:13 08:30 WBC 12.1 H D RBC 4.11 Hgb 12.1 Hct 36.0 MCV 87.8 MCH 29.4 MCHC 33.6 RDW 16.1 H Plt Count 382 MPV 8.7 Neutrophils % 69.3 Lymphocytes % 24.6 Monocytes % 4.6 Eosinophils % 1.1 D Basophils % 0.4 Sodium 134 L Potassium 4.2 Chloride 103 Carbon Dioxide 20 L Anion Gap 11 BUN 18 Creatinine 0.7 POC Glucometer 108 Random Glucose 570 H* Calcium 8.1 L Microbiology 10/23/17 17:50 Urine - Urine Clean Catch Urine Culture - Final Esophagogram pending ASSESSMENT AND PLAN: 47 yof with CVA, chronic back pain on high dose opioids, gastroparesis, admitted with dysphagia/odynophagia, constipation, weight loss -Dysphagia/Odynophagia -Failure to thrive -Nausea, vomiting, now with diarrhea -Constipation, suspect opioid induced, resolved, diarrhea now -CVA -Chronic back on opioids -DM Plan: Inabilty to tolerate PO, persistent nausea, vomiting, now with diarrhea. Hyperglycemic overnight. Esophagogram, follow up results. EGD on Friday. PPI. Resume home levemir with PO. Hold bowel regimen if diarrhea. Continue reglan. COntinue ASA/statin. Gentle hydration. Anticipate atleast 2 midnight stays given hyperglycemia, failure to tolerate po , ongoing hypovolumia with need for IV hydration and close monitoring. Admit to inpatient. Plan discussed with patient in detail and all questions answered
[2017-10-25 09:26] LABS: ALBUMIN 3.2 g/dl (3.4-5.0); ANION GAP 5 (8-16); BILIRUBIN,TOTAL 0.6 mg/dL (0.2-1.0); BLOOD UREA NITROGEN 14 mg/dL (7-18); CALCIUM 8.2 mg/dL (8.5-10.1); CHLORIDE 110 mmol/L (98-107); CO2 24 mmol/L (21-32); CREATININE 0.6 mg/dL (0.55-1.02); GLUCOSE,RANDOM 225 mg/dL (74-106); MAGNESIUM 1.8 mg/dL (1.8-2.4); PHOSPHOROUS 3.4 mg/dL (2.5-4.9); POTASSIUM 4.1 mmol/L (3.5-5.1); SGOT/AST 30 U/L (15-37); SGPT/ALT 29 U/L (12-78); SODIUM 139 mmol/L (136-145); TOT PROT 6.2 g/dl (6.4-8.2)
[2017-10-25 09:27] LABS: ALK PHOS 70 U/L (45-117)
[2017-10-25 09:36] LABS: BASO % 0.4 % (0-2.0); EOS % 1.1 % (0-4.5); HEMOGLOBIN 12.1 GM/dL (10.7-15.3); LYMPH % 24.6 % (8-40); MCH 29.4 pg (25.7-33.7); MCHC 33.6 g/dl (32.0-36.0); MEAN CELL VOLUME 87.8 fl (80-96); MEAN PLT VOLUME 8.7 fl (7.5-11.1); MONO % 4.6 % (3.8-10.2); NEUT % 69.3 % (42.8-82.8); PLATELET COUNT 382 K/MM3 (134-434); RBC 4.11 M/mm3 (3.60-5.2); RDW 16.1 % (11.6-15.6); WHITE BLOOD COUNT 12.1 K/mm3 (4.0-10.0)
[2017-10-25] MEDS: INSULIN (LEVEMIR) 100 UNITS/ML UNITS SQ SCH ×2 (10:03→21:07)
[2017-10-25] MEDS: POLYETHYLENE GLYCOL 3350 119 GM BTL PO SCH (10:03)
[2017-10-25] MEDS: ASPIRIN 325 MG TABLET PO SCH (10:03)
[2017-10-25] MEDS: PANTOPRAZOLE 40 MG TABLET (FP) PO SCH (10:03)
[2017-10-25] MEDS ORDERED: PT OWN MED DRAWER 7, Y5N ONE (11:25)
[2017-10-25] MEDS: SODIUM CHLORIDE 1,000 ML IV SCH (18:15)
[2017-10-25] MEDS: ATORVASTATIN CA 10 MG TABLET (FP) PO SCH (21:09)
[2017-10-25] MEDS: SENNOSIDES 8.6MG TABLET (FP) PO SCH (21:12)
[2017-10-26] MEDS: DOCUSATE SODIUM 100 MG CAPSULE (FP) PO SCH ×2 (06:53→13:02)
[2017-10-26] MEDS: INSULIN SLIDING SCALE (NOVOLOG) 1 VIAL SQ SCH ×3 (06:53→16:28)
[2017-10-26] MEDS ORDERED: PT OWN MED DRAWER 7, Y5N ONE (08:59)
[2017-10-26] MEDS: METOCLOPRAMIDE HCL INJECTION 10 MG/2 ML VIAL IVPUSH PRN ×2 (09:04→18:48)
[2017-10-26] MEDS: morphine SULFATE 4 MG/ML VIAL IVPUSH PRN ×2 (09:07→16:22)
[2017-10-26] MEDS: INSULIN (LEVEMIR) 100 UNITS/ML UNITS SQ SCH (09:12)
[2017-10-26] MEDS: ASPIRIN 325 MG TABLET PO SCH (09:15)
[2017-10-26] MEDS: PANTOPRAZOLE 40 MG TABLET (FP) PO SCH (09:15)
[2017-10-26] MEDS: POLYETHYLENE GLYCOL 3350 119 GM BTL PO SCH (09:15)
[2017-10-26] MEDS: SODIUM CHLORIDE 1,000 ML IV SCH (12:43)
--- NOTE | 2017-10-26 17:08 | PN ---
Teaching Attending Note Name of Resident: Mel Yepez SUBJECTIVE: Patient seen and examined. reports multiple episodes of spitting/vomiting and diarrhea 'all night'. Empty clear liquid diet containers by her bed. OBJECTIVE: Vital Signs Period Temp Pulse Resp BP Sys/Rapp Pulse Ox Last 24 Hr 97.6 F-99 F 67-747 18-20 103-139/60-76 96-100 Intake & Output 10/23/17 10/24/17 10/25/17 10/26/17 23:59 23:59 23:59 23:59 Intake Total 1955 2420 2330 Output Total 1 50 Balance 1954 2369 2330 Weight 123 lb 124 lb General: sitting in bed in no acute distress Abdomen:soft, NT throughout, ND, positive bowel sounds extremities: no edema Chest: CTAB, no rales or wheezing Home Medication List Medication Instructions Recorded Confirmed Type Aspirin [ASA -] 325 mg PO DAILY 09/16/17 10/23/17 History Morphine *Immediate Release* [Msir 60 mg PO Q6H 09/16/17 10/23/17 History -] Active Medications Generic Name Dose Route Start Last Admin Trade Name Freq PRN Reason Stop Dose Admin Aspirin 325 mg 10/24/17 10:00 10/26/17 09:15 Asa - PO 325 mg DAILY [facility] Administration Atorvastatin Calcium 10 mg 10/23/17 22:45 10/25/17 21:09 Lipitor - PO 10 mg HS [facility] Administration Docusate Sodium 100 mg 10/24/17 06:00 10/26/17 13:02 Colace - PO Not Given TID [facility] Sodium Chloride 1,000 mls @ 75 mls/hr 10/24/17 11:30 10/26/17 12:43 Normal Saline - IV 75 mls/hr ASDIR [facility] Administration Insulin Aspart 1 vial 10/24/17 07:00 10/26/17 16:28 Novolog Vial Sliding Scale - SQ 8 units ACHS [facility] Administration Protocol Metoclopramide HCl 10 mg 10/24/17 00:58 10/26/17 09:04 Reglan Injection - IVPUSH 10 mg Q6H PRN Administration NAUSEA AND/OR VOMITING Morphine Sulfate 1 mg 10/24/17 09:10 10/26/17 16:22 Morphine Sulfate IVPUSH 1 mg Q6H PRN Administration PAIN LEVEL 6-10 Pantoprazole Sodium 40 mg 10/24/17 10:00 10/26/17 09:15 Protonix - PO 40 mg DAILY [facility] Administration Polyethylene Glycol 17 gm 10/24/17 10:00 10/26/17 09:15 Miralax (For Daily Use) - PO 17 gm DAILY [facility] Administration Senna 2 tab 10/24/17 22:00 10/25/17 21:12 Senna - PO Not Given HS [facility] Laboratory Results - last 24 hr 10/24/17 10/25/17 10/25/17 22:25 11:28 17:19 POC Glucometer > 600 477 362 10/25/17 10/26/17 10/26/17 21:04 06:52 09:12 POC Glucometer 359 43 51 10/26/17 10/26/17 12:32 16:27 POC Glucometer 150 350 Microbiology 10/23/17 17:50 Urine - Urine Clean Catch Urine Culture - Final ASSESSMENT AND PLAN: 47 yof with CVA, chronic back pain on high dose opioids, gastroparesis, admitted with dysphagia/odynophagia, constipation, weight loss -Dysphagia/Odynophagia -Failure to thrive -Nausea, vomiting, now with diarrhea -Constipation, suspect opioid induced, resolved, diarrhea now -CVA -Chronic back on opioids -DM Plan: Empty clear liquid diet containers at bedside, reported vomitting/diarrhea per patient, unwitnessed by staff. Stressed with patient to notify nursing of the same. Discussed with RN to chart all BM. Labile blood sugars. D/c levemir. ISS for now. Esophagogram results noted, continue PPI. For EGD tomorrow, will follow up. Hold bowel regimen if diarrhea. Continue reglan. COntinue ASA/statin. Gentle hydration. Patient counseled on discussing opioid taper with her PCP as likely contributory to her symptoms dispo d/c home in 24 hours if EGD non concerning and no new events. Plan discussed with patient in detail and all questions answered
[2017-10-27] MEDS: morphine SULFATE 4 MG/ML VIAL IVPUSH PRN ×4 (00:05→17:58)
[2017-10-27] MEDS: DOCUSATE SODIUM 100 MG CAPSULE (FP) PO SCH ×4 (00:06→23:20)
[2017-10-27] MEDS: SENNOSIDES 8.6MG TABLET (FP) PO SCH ×2 (00:06→23:22)
[2017-10-27] MEDS: ATORVASTATIN CA 10 MG TABLET (FP) PO SCH ×2 (00:07→23:21)
[2017-10-27] MEDS: INSULIN SLIDING SCALE (NOVOLOG) 1 VIAL SQ SCH ×5 (00:07→23:32)
[2017-10-27 03:01] LABS: ANION GAP 12 (8-16); BLOOD UREA NITROGEN 5 mg/dL (7-18); CALCIUM 8.4 mg/dL (8.5-10.1); CHLORIDE 108 mmol/L (98-107); CO2 21 mmol/L (21-32); CREATININE 0.9 mg/dL (0.55-1.02); POTASSIUM 3.1 mmol/L (3.5-5.1); SODIUM 141 mmol/L (136-145)
[2017-10-27 03:04] LABS: GLUCOSE,RANDOM 321 mg/dL (74-106)
[2017-10-27] MEDS ORDERED: ACETAMINOPHEN 325 MG TABLET (FP) PO ONE (05:42)
[2017-10-27] MEDS ORDERED: POTASSIUM CHLORIDE TABS 20 MEQ TABLET.ER (FP) PO ONE (06:00)
--- NOTE | 2017-10-27 06:03 | PN ---
Physical Exam: SUBJECTIVE: Patient seen and examined - Pt complaining of unwitnessed vomiting, multiple bouts of diarrhea; continually told to demonstrate to staff however unable to; Noncompliant with hospital diet; refusing colace, senna; BMP overnight notable for glucose of 321 , K 3.1; given 40meq Kdur and planned for repeat BMP in AM; Pt endorsing insomnia, chills overnight, in addition to ab pain; Pt states she is very hungry , but is still regurgitating food after eating. OBJECTIVE: Vital Signs Intake & Output 10/24/17 10/25/17 10/26/17 10/27/17 23:59 23:59 23:59 23:59 Intake Total 1955 2420 2480 Output Total 1 50 Balance 1954 2370 2480 Weight 56.245 kg Period Temp Pulse Resp BP Sys/Rapp Pulse Ox Last 24 Hr 97.6 F-99 F 67-747 18-20 103-139/60-76 100-100 GENERAL: Middle aged woman, NAD, A&Ox3 HEAD: NCAT EYES: PERRL, extraocular movements intact, sclera anicteric, conjunctiva clear. No ptosis. ENT: Poor dentition. No erythema, swelling or tonsillar exudates. Ears normal, nares patent, oropharynx clear without exudates, moist mucous membranes. NECK: Trachea midline, full range of motion, supple. LUNGS: CTABL, no wheezes, no crackles, no accessory muscle use. HEART: Regular rate and rhythm, S1, S2 without murmur, rub or gallop. ABDOMEN: Soft, nontender, nondistended, normoactive bowel sounds, no guarding, no rebound, no hepatosplenomegaly, no masses. Mild TTP in midline lumbar region EXTREMITIES: 2+ pulses, warm, well-perfused, no edema. NEUROLOGICAL: Cranial nerves II through XII grossly intact. Normal speech, gait not observed. PSYCH: Normal mood, normal affect. Pleasant, interactive SKIN: Warm, dry, normal turgor, no rashes or lesions noted Laboratory Results - last 24 hr CBC, BMP 10/27/17 06:35 10/27/17 06:35 10/25/17 08:30 10/27/17 02:00 10/24/17 10/25/17 10/26/17 22:25 11:28 06:52 Sodium Potassium Chloride Carbon Dioxide Anion Gap BUN Creatinine POC Glucometer > 600 477 43 Random Glucose Calcium 10/26/17 10/26/17 10/26/17 09:12 12:32 16:27 Sodium Potassium Chloride Carbon Dioxide Anion Gap BUN Creatinine POC Glucometer 51 150 350 Random Glucose Calcium 10/27/17 10/27/17 00:05 02:00 Sodium 141 Potassium 3.1 L Chloride 108 H Carbon Dioxide 21 Anion Gap 12 BUN 5 L Creatinine 0.9 POC Glucometer 527 Random Glucose 321 H* Calcium 8.4 L Active Medications Generic Name Dose Route Start Last Admin Trade Name Freq PRN Reason Stop Dose Admin Aspirin 325 mg 10/24/17 10:00 10/26/17 09:15 Asa - PO 325 mg DAILY [facility] Administration Atorvastatin Calcium 10 mg 10/23/17 22:45 10/27/17 00:07 Lipitor - PO 10 mg HS [facility] Administration Docusate Sodium 100 mg 10/24/17 06:00 10/27/17 00:06 Colace - PO Not Given TID [facility] Sodium Chloride 1,000 mls @ 75 mls/hr 10/24/17 11:30 10/26/17 12:43 Normal Saline - IV 75 mls/hr ASDIR [facility] Administration Insulin Aspart 1 vial 10/24/17 07:00 10/27/17 00:07 Novolog Vial Sliding Scale - SQ 12 units ACHS [facility] Administration Protocol Metoclopramide HCl 10 mg 10/24/17 00:58 10/26/17 18:48 Reglan Injection - IVPUSH 10 mg Q6H PRN Administration NAUSEA AND/OR VOMITING Morphine Sulfate 1 mg 10/24/17 09:10 10/27/17 00:05 Morphine Sulfate IVPUSH 1 mg Q6H PRN Administration PAIN LEVEL 6-10 Pantoprazole Sodium 40 mg 10/24/17 10:00 10/26/17 09:15 Protonix - PO 40 mg DAILY [facility] Administration Polyethylene Glycol 17 gm 10/24/17 10:00 10/26/17 09:15 Miralax (For Daily Use) - PO 17 gm DAILY [facility] Administration Potassium Chloride 40 meq 10/27/17 06:00 K-Dur - PO 10/27/17 06:01 ONCE ONE Senna 2 tab 10/24/17 22:00 10/27/17 00:06 Senna - PO Not Given HS [facility] Urine cultures negative Ab XR 10/23- notable for previous GB removal. Constipation. Barium swallow 10/24 - notable for small hiatal hernia, however grossly unremarkable ASSESSMENT/PLAN: 47 yo F with a PMHx of CVA (july), IDDM, Gastroparesis, Chronic back pain, GERD, presented to the ED because of dyspagia and vomiting over the past month. #Esophageal stricture/Esophagitis - confirmed on EGD; 1 month hx of solid/ liquid regurgitation after feds, 10-15lb weight loss - EGD this PM, result noted; will repeat outpt EGD in 2-3 weeks for balloon dilatation; f/u biopsy results - hiatal hernia on esophagogram -GI consulted- Dr. Voss - PPI; start on carafate - avoid nsaids -c/w Reglan (QTC 443) -monitor lytes -start on clears - IVFs #IDDM - labile BGMs; 355 this AM -BGM's q4h -ISS -holding levemir for now #Constipation - likely secondary to chronic opioid abuse -Colace -Senna - Miralax daily #Hx of CVA -Cont. ASA -Lipitor #insomnia - melatonin qhs #FEN -NS 75cc/hr -daily lytes - Clear diet #DVT -SCDs Plan discussed with Dr. Marleni Camacho, PGY1 Visit type - Emergency Visit Emergency Visit: Yes ED Registration Date: 10/25/17 Care time: The patient presented to the Emergency Department on the above date and was hospitalized for further evaluation of their emergent condition. - New Patient This patient is new to me today: No - Critical Care Critical Care patient: No - Discharge Referral Referred to [facility] Med [facility] No
[2017-10-27 07:50] LABS: BASO % 0.2 % (0-2.0); EOS % 1.9 % (0-4.5); HEMATOCRIT 31.9 % (32.4-45.2); HEMOGLOBIN 10.9 GM/dL (10.7-15.3); LYMPH % 15.9 % (8-40); MCHC 34.3 g/dl (32.0-36.0); MEAN CELL VOLUME 87.4 fl (80-96); MEAN PLT VOLUME 8.3 fl (7.5-11.1); MONO % 2.4 % (3.8-10.2); NEUT % 79.6 % (42.8-82.8); PLATELET COUNT 337 K/MM3 (134-434); RBC 3.65 M/mm3 (3.60-5.2); RDW 15.4 % (11.6-15.6); WHITE BLOOD COUNT 12.8 K/mm3 (4.0-10.0)
[2017-10-27 08:15] LABS: ALBUMIN 3.1 g/dl (3.4-5.0); ANION GAP 10 (8-16); BLOOD UREA NITROGEN 6 mg/dL (7-18); CALCIUM 8.2 mg/dL (8.5-10.1); CHLORIDE 107 mmol/L (98-107); CO2 24 mmol/L (21-32); MAGNESIUM 1.5 mg/dL (1.8-2.4); POTASSIUM 3.3 mmol/L (3.5-5.1); SODIUM 141 mmol/L (136-145)
[2017-10-27 08:18] LABS: ALK PHOS 74 U/L (45-117); BILIRUBIN,TOTAL 0.5 mg/dL (0.2-1.0); CREATININE 0.7 mg/dL (0.55-1.02); PHOSPHOROUS 2.6 mg/dL (2.5-4.9); SGOT/AST 14 U/L (15-37); SGPT/ALT 24 U/L (12-78); TOT PROT 5.9 g/dl (6.4-8.2)
[2017-10-27 08:52] LABS: GLUCOSE,RANDOM 335 mg/dL (74-106)
[2017-10-27] MEDS ORDERED: MAGNESIUM SULF 50% (8.12 MEQ/2 ML-1 GM VIAL) IVPB ONE (09:51)
[2017-10-27] MEDS ORDERED: MAGNESIUM SULFATE IN WATER 2 GM/50 ML IVPB IVPB ONE (10:15)
--- NOTE | 2017-10-27 11:00 | PROC ---
Endoscopy Procedure Endoscopy procedure completed. Please see scanned procedure report. Distal esophagieal stricture, mid-distal severe esophagitis and moderate antral gastritis were found. Stricture was traversed with 2.4 followed by 2.8 scopes. Biopsies of the distal esophagus, antrum and duodenum taken. PCXR ordered to eval for mediastinal air. If CXR negative: Liquid Carafate qid PPI po bid Clear liquid diet Repeat EGD with balloon dilation in 2-3 weeks
[2017-10-27] MEDS ORDERED: PANTOPRAZOLE SOD 40 MG SUSPENSION PACKET NGT SCH (11:15)
[2017-10-27] MEDS ORDERED: INSULIN (NOVOLOG) ASPART 100 UNITS/ML 10ML VIAL ONE ×2 (11:54→21:22)
--- NOTE | 2017-10-27 11:56 | PN ---
Progress Note (short form) - Note Progress Note: PCXR results noted. Diet and medications as ordered. Problem List - Problems (1) Dehydration, mild Code(s): E86.0 - DEHYDRATION (2) Dysphagia Code(s): R13.10 - DYSPHAGIA, UNSPECIFIED Qualifiers: Dysphagia type: unspecified Qualified Code(s): R13.10 - Dysphagia, unspecified
[2017-10-27] MEDS: ASPIRIN 325 MG TABLET PO SCH (12:03)
[2017-10-27] MEDS: PANTOPRAZOLE SOD 40 MG SUSPENSION PACKET PO SCH ×2 (12:03→23:21)
[2017-10-27] MEDS: POLYETHYLENE GLYCOL 3350 119 GM BTL PO SCH (12:03)
[2017-10-27] MEDS: METOCLOPRAMIDE HCL INJECTION 10 MG/2 ML VIAL IVPUSH PRN ×2 (13:12→19:57)
[2017-10-27] MEDS: SODIUM CHLORIDE 1,000 ML IV SCH (13:36)
[2017-10-27] MEDS: SUCRALFATE 1 GM/10 ML UNIT DOSE CUPS PO SCH ×3 (13:37→23:20)
[2017-10-27] MEDS ORDERED: MELATONIN 5 MG TABLETS PO PRN (16:31)
--- NOTE | 2017-10-27 16:42 | PN ---
Teaching Attending Note Name of Resident: Roberto Camacho ATTENDING PHYSICIAN STATEMENT I saw and evaluated the patient. I reviewed the resident's note and discussed the case with the resident. I agree with the resident's findings and plan as documented with exceptions. SUBJECTIVE: Patient seen and examined. Still with vomiting and inability to tolerate Diet. No new chest or epigastric pain. reports diarrhea overnight, no fevers/chills. OBJECTIVE: Vital Signs Period Temp Pulse Resp BP Sys/Rapp Pulse Ox Last 24 Hr 97.5 F-99.1 F 72-747 18-20 110-145/57-81 100-100 Intake & Output 10/24/17 10/25/17 10/26/17 10/27/17 23:59 23:59 23:59 23:59 Intake Total 1955 2420 2480 100 Output Total 1 50 Balance 1954 2370 2480 100 Weight 124 lb General: sitting in bed in no acute distress Chest: CTAB, no rales or wheezing abdomen:soft, NT, ND, positive bowel sounds extremities: no edema Home Medication List Medication Instructions Recorded Confirmed Type Aspirin [ASA -] 325 mg PO DAILY 09/16/17 10/23/17 History Morphine *Immediate Release* [Msir 60 mg PO Q6H 09/16/17 10/23/17 History -] Active Medications Generic Name Dose Route Start Last Admin Trade Name Freq PRN Reason Stop Dose Admin Aspirin 325 mg 10/24/17 10:00 10/27/17 12:03 Asa - PO Not Given DAILY [facility] Atorvastatin Calcium 10 mg 10/23/17 22:45 10/27/17 00:07 Lipitor - PO 10 mg HS [facility] Administration Docusate Sodium 100 mg 10/24/17 06:00 10/27/17 13:37 Colace - PO Not Given TID [facility] Sodium Chloride 1,000 mls @ 75 mls/hr 10/24/17 11:30 10/27/17 13:36 Normal Saline - IV 75 mls/hr ASDIR [facility] Administration Insulin Aspart 1 vial 10/24/17 07:00 10/27/17 12:21 Novolog Vial Sliding Scale - SQ 6 units ACHS [facility] Administration Protocol Melatonin 5 mg 10/27/17 16:31 Melatonin PO HS PRN INSOMNIA Metoclopramide HCl 10 mg 10/24/17 00:58 10/27/17 13:12 Reglan Injection - IVPUSH 10 mg Q6H PRN Administration NAUSEA AND/OR VOMITING Morphine Sulfate 1 mg 10/24/17 09:10 10/27/17 12:03 Morphine Sulfate IVPUSH 1 mg Q6H PRN Administration PAIN LEVEL 6-10 Pantoprazole Sodium 40 mg 10/27/17 11:15 10/27/17 12:03 Protonix Packets For Oral Suspension - PO Not Given BID [facility] Polyethylene Glycol 17 gm 10/24/17 10:00 10/27/17 12:03 Miralax (For Daily Use) - PO Not Given DAILY [facility] Senna 2 tab 10/24/17 22:00 10/27/17 00:06 Senna - PO Not Given HS [facility] Sucralfate 1 gm 10/27/17 14:00 10/27/17 13:37 Carafate Oral Suspension - PO Not Given QID [facility] Laboratory Results - last 24 hr 10/26/17 10/27/17 10/27/17 16:27 00:05 02:00 WBC RBC Hgb Hct MCV MCH MCHC RDW Plt Count MPV Neutrophils % Lymphocytes % Monocytes % Eosinophils % Basophils % Sodium 141 Potassium 3.1 L Chloride 108 H Carbon Dioxide 21 Anion Gap 12 BUN 5 L Creatinine 0.9 Creat Clearance w eGFR POC Glucometer 350 527 Random Glucose 321 H* Calcium 8.4 L Phosphorus Magnesium Total Bilirubin AST ALT Alkaline Phosphatase Total Protein Albumin 10/27/17 10/27/17 10/27/17 06:35 06:35 06:40 WBC 12.8 H RBC 3.65 Hgb 10.9 Hct 31.9 L MCV 87.4 MCH 30.0 MCHC 34.3 RDW 15.4 Plt Count 337 MPV 8.3 Neutrophils % 79.6 Lymphocytes % 15.9 D Monocytes % 2.4 L Eosinophils % 1.9 Basophils % 0.2 Sodium 141 Potassium 3.3 L Chloride 107 Carbon Dioxide 24 Anion Gap 10 BUN 6 L Creatinine 0.7 Creat Clearance w eGFR > 60 POC Glucometer 362 Random Glucose 335 H* Calcium 8.2 L Phosphorus 2.6 Magnesium 1.5 L Total Bilirubin 0.5 AST 14 L ALT 24 Alkaline Phosphatase 74 Total Protein 5.9 L Albumin 3.1 L 10/27/17 12:19 WBC RBC Hgb Hct MCV MCH MCHC RDW Plt Count MPV Neutrophils % Lymphocytes % Monocytes % Eosinophils % Basophils % Sodium Potassium Chloride Carbon Dioxide Anion Gap BUN Creatinine Creat Clearance w eGFR POC Glucometer 264 Random Glucose Calcium Phosphorus Magnesium Total Bilirubin AST ALT Alkaline Phosphatase Total Protein Albumin Microbiology 10/23/17 17:50 Urine - Urine Clean Catch Urine Culture - Final ASSESSMENT AND PLAN: 47 yof with CVA, chronic back pain on high dose opioids, gastroparesis, admitted with dysphagia/odynophagia, constipation, weight loss -Dysphagia/Odynophagia, EGD with esophageal stricture s/p dilation 10/27, esophagitis/gastritis s/p biopsies -Failure to thrive -Nausea, vomiting, now with diarrhea -Constipation, suspect opioid induced, resolved, diarrhea now -Hypokalemia -Hypomagnesemia -CVA -Chronic back on opioids -DM Plan: EGD results noted. Start carafate. Continue PPI, avoid NSAIDs, outpatient EGD in 2-3 weeks for repeat dilatation. Follow up biopsy results. CXR post procedure neg for acute concerns. Start clears. Esophagogram with hiatal hernia, otherwise neg. Labile blood sugars. off levemir, continue ISS and reattempt levemir based on blood sugars. Endocrine input if fails to improve. Replete K/Mg. Hold bowel regimen if diarrhea. Continue reglan. COntinue ASA/statin. Gentle hydration. Nutrition consult. Patient counseled on discussing opioid taper with her PCP as likely contributory to her symptoms dispo d/c home in 24-48 hours it tolerating diet and no new events. Plan discussed with patient in detail and all questions answered
[2017-10-27] MEDS: PANTOPRAZOLE 40 MG TABLET (FP) PO SCH (16:58)
[2017-10-28] MEDS: METOCLOPRAMIDE HCL INJECTION 10 MG/2 ML VIAL IVPUSH PRN (03:06)
[2017-10-28] MEDS: SODIUM CHLORIDE 1,000 ML IV SCH (03:26)
[2017-10-28] MEDS: DOCUSATE SODIUM 100 MG CAPSULE (FP) PO SCH (06:04)
[2017-10-28] MEDS: INSULIN SLIDING SCALE (NOVOLOG) 1 VIAL SQ SCH ×3 (06:20→17:29)
--- NOTE | 2017-10-28 06:21 | PN ---
Physical Exam: SUBJECTIVE: Patient seen and examined - No major overnight events; VSS, afebrile; complaining of intermittent Nausea and pain overnight; s/p EGD yesterday noted for distal esophageal stricture/ esophagitis; plan for d/c today likely with outpt f/u; still with persistent regurgitation; + chills, mild GOMEZ; denies f/n/d, CP, sob, cough, ab pain, LE edema; chronic lower back pain OBJECTIVE: Vital Signs Intake & Output 10/25/17 10/26/17 10/27/17 10/28/17 23:59 23:59 23:59 23:59 Intake Total 2420 2480 500 Output Total 50 Balance 2370 2480 500 Period Temp Pulse Resp BP Sys/Rapp Pulse Ox Last 24 Hr 97.5 F-99.1 F 72-83 18-20 110-145/57-81 100-100 GENERAL: Middle aged woman, NAD HEAD: NCAT EYES: PERRL, extraocular movements intact, sclera anicteric, conjunctiva clear. No ptosis. ENT: Still with Poor dentition. No erythema, swelling or tonsillar exudates. Ears normal, nares patent, oropharynx clear without exudates, moist mucous membranes. NECK: Trachea midline, full range of motion, supple. LUNGS: CTABL, no wheezes, no crackles, no accessory muscle use. HEART: Regular rate and rhythm, S1, S2 without murmur, rub or gallop. ABDOMEN: Soft, nontender, nondistended, normoactive bowel sounds, no guarding, no rebound, no hepatosplenomegaly, no masses EXTREMITIES: 2+ pulses, warm, well-perfused, no edema. NEUROLOGICAL: Cranial nerves II through XII grossly intact. Normal speech, gait not observed. PSYCH: Normal mood, normal affect. Pleasant, interactive SKIN: Warm, dry, normal turgor, no rashes or lesions noted Laboratory Results - last 24 hr CBC, BMP CBC, BMP 10/28/17 06:15 10/28/17 06:15 10/27/17 06:35 10/27/17 06:35 10/27/17 10/27/17 10/27/17 06:35 06:35 06:40 WBC 12.8 H RBC 3.65 Hgb 10.9 Hct 31.9 L MCV 87.4 MCH 30.0 MCHC 34.3 RDW 15.4 Plt Count 337 MPV 8.3 Neutrophils % 79.6 Lymphocytes % 15.9 D Monocytes % 2.4 L Eosinophils % 1.9 Basophils % 0.2 Sodium 141 Potassium 3.3 L Chloride 107 Carbon Dioxide 24 Anion Gap 10 BUN 6 L Creatinine 0.7 Creat Clearance w eGFR > 60 POC Glucometer 362 Random Glucose 335 H* Calcium 8.2 L Phosphorus 2.6 Magnesium 1.5 L Total Bilirubin 0.5 AST 14 L ALT 24 Alkaline Phosphatase 74 Total Protein 5.9 L Albumin 3.1 L 10/27/17 10/27/17 10/27/17 12:19 17:12 23:29 WBC RBC Hgb Hct MCV MCH MCHC RDW Plt Count MPV Neutrophils % Lymphocytes % Monocytes % Eosinophils % Basophils % Sodium Potassium Chloride Carbon Dioxide Anion Gap BUN Creatinine Creat Clearance w eGFR POC Glucometer 264 230 334 Random Glucose Calcium Phosphorus Magnesium Total Bilirubin AST ALT Alkaline Phosphatase Total Protein Albumin Active Medications Generic Name Dose Route Start Last Admin Trade Name Freq PRN Reason Stop Dose Admin Aspirin 325 mg 10/24/17 10:00 10/27/17 12:03 Asa - PO Not Given DAILY [facility] Atorvastatin Calcium 10 mg 10/23/17 22:45 10/27/17 23:21 Lipitor - PO 10 mg HS [facility] Administration Docusate Sodium 100 mg 10/24/17 06:00 10/28/17 06:04 Colace - PO Not Given TID [facility] Sodium Chloride 1,000 mls @ 75 mls/hr 10/24/17 11:30 10/28/17 03:26 Normal Saline - IV 75 mls/hr ASDIR [facility] Administration Insulin Aspart 1 vial 10/24/17 07:00 10/27/17 23:32 Novolog Vial Sliding Scale - SQ 8 units ACHS [facility] Administration Protocol Melatonin 5 mg 10/27/17 16:31 10/27/17 23:24 Melatonin PO 5 mg HS PRN Administration INSOMNIA Metoclopramide HCl 10 mg 10/24/17 00:58 10/28/17 03:06 Reglan Injection - IVPUSH 10 mg Q6H PRN Administration NAUSEA AND/OR VOMITING Morphine Sulfate 1 mg 10/24/17 09:10 10/28/17 00:00 Morphine Sulfate IVPUSH 1 mg Q6H PRN Administration PAIN LEVEL 6-10 Pantoprazole Sodium 40 mg 10/27/17 11:15 10/27/17 23:21 Protonix Packets For Oral Suspension - PO Not Given BID [facility] Polyethylene Glycol 17 gm 10/24/17 10:00 10/27/17 12:03 Miralax (For Daily Use) - PO Not Given DAILY [facility] Senna 2 tab 10/24/17 22:00 10/27/17 23:22 Senna - PO Not Given HS [facility] Sucralfate 1 gm 10/27/17 14:00 10/27/17 23:20 Carafate Oral Suspension - PO Not Given QID [facility] Microbiology 10/23/17 17:50 Urine - Urine Clean Catch Urine Culture - Final Ab XR 10/23- notable for previous GB removal. Constipation. Barium swallow 10/24 - notable for small hiatal hernia, however grossly unremarkable CXR 10/27 - No pathology noted; distended stomach; no pneumomediastinum noted ASSESSMENT/PLAN: 47 yo F with a PMHx of CVA (july), IDDM, Gastroparesis, Chronic back pain, GERD, presented to the ED because of dyspagia and vomiting over the past month. #Esophageal stricture/Esophagitis - confirmed on EGD; 1 month hx of solid/ liquid regurgitation after feds, 10-15lb weight loss - EGD this PM, result noted; will repeat outpt EGD in 2-3 weeks for balloon dilatation; f/u biopsy results - hiatal hernia on esophagogram -GI consulted- Dr. Voss - PPI; start on carafate - avoid nsaids -c/w Reglan (QTC 443) -monitor lytes -start on clears - IVFs #IDDM - labile BGMs; 355 this AM -BGM's q4h -ISS -holding levemir for now #Constipation - likely secondary to chronic opioid abuse -Colace -Senna - Miralax daily #Hx of CVA -Cont. ASA -Lipitor #insomnia - melatonin qhs #FEN -NS 75cc/hr -daily lytes - Clear diet #DVT -SCDs Plan discussed with Dr. Marleni Camacho, PGY1
[2017-10-28] MEDS: morphine SULFATE 4 MG/ML VIAL IVPUSH PRN ×2 (07:02)
[2017-10-28 07:37] LABS: BASO % 0.5 % (0-2.0); EOS % 2.1 % (0-4.5); HEMATOCRIT 30.7 % (32.4-45.2); HEMOGLOBIN 10.3 GM/dL (10.7-15.3); LYMPH % 34.5 % (8-40); MCH 29.9 pg (25.7-33.7); MCHC 33.5 g/dl (32.0-36.0); MEAN CELL VOLUME 89.2 fl (80-96); MEAN PLT VOLUME 8.7 fl (7.5-11.1); MONO % 3.8 % (3.8-10.2); NEUT % 59.1 % (42.8-82.8); PLATELET COUNT 324 K/MM3 (134-434); RBC 3.44 M/mm3 (3.60-5.2); RDW 15.4 % (11.6-15.6); WHITE BLOOD COUNT 10.1 K/mm3 (4.0-10.0)
[2017-10-28 08:46] LABS: ALBUMIN 2.9 g/dl (3.4-5.0); ANION GAP 11 (8-16); CALCIUM 7.5 mg/dL (8.5-10.1); CHLORIDE 110 mmol/L (98-107); CO2 21 mmol/L (21-32); POTASSIUM 3.6 mmol/L (3.5-5.1); SODIUM 142 mmol/L (136-145)
[2017-10-28 08:53] LABS: ALK PHOS 70 U/L (45-117); BILIRUBIN,TOTAL 0.4 mg/dL (0.2-1.0); BLOOD UREA NITROGEN 10 mg/dL (7-18); CREATININE 0.5 mg/dL (0.55-1.02); MAGNESIUM 1.9 mg/dL (1.8-2.4); PHOSPHOROUS 3.2 mg/dL (2.5-4.9); SGOT/AST 11 U/L (15-37); SGPT/ALT 18 U/L (12-78); TOT PROT 5.6 g/dl (6.4-8.2)
[2017-10-28 09:10] LABS: GLUCOSE,RANDOM 333 mg/dL (74-106)
[2017-10-28] MEDS: SUCRALFATE 1 GM/10 ML UNIT DOSE CUPS PO SCH (09:47)
[2017-10-28] MEDS: POLYETHYLENE GLYCOL 3350 119 GM BTL PO SCH (09:48)
[2017-10-28] MEDS: ASPIRIN 325 MG TABLET PO SCH (09:52)
[2017-10-28] MEDS: PANTOPRAZOLE SOD 40 MG SUSPENSION PACKET PO SCH (09:52)
[2017-10-28] MEDS ORDERED: INSULIN (NOVOLOG) ASPART 100 UNITS/ML 10ML VIAL ONE (12:02)
[2017-10-28 14:38] VITALS: BP 107/79; PULSE 75; TEMP 99.4
[2017-10-28] MEDS ORDERED: METOCLOPRAMIDE HCL 10 MG TABLET (FP) PO SCH (16:30)
--- NOTE | 2017-10-28 17:37 | PN ---
Teaching Attending Note Name of Resident: Roberto Camacho ATTENDING PHYSICIAN STATEMENT I saw and evaluated the patient. I reviewed the resident's note and discussed the case with the resident. I agree with the resident's findings and plan as documented. SUBJECTIVE: Patient reports occasional nausea with regurgitation/vomiting. OBJECTIVE: Vital Signs Period Temp Pulse Resp BP Sys/Rapp Pulse Ox Last 24 Hr 98.4 F-99.4 F 68-80 20-20 107-142/69-79 100-100 HEART: S1S2, RRR LUNGS: Clear ABDOMEN: Soft, non-tender, non-distended, normal BS EXTREMITIES: No edema Laboratory Results - last 24 hr 10/27/17 10/27/17 10/28/17 17:12 23:29 05:55 WBC RBC Hgb Hct MCV MCH MCHC RDW Plt Count MPV Neutrophils % Lymphocytes % Monocytes % Eosinophils % Basophils % Sodium Potassium Chloride Carbon Dioxide Anion Gap BUN Creatinine Creat Clearance w eGFR POC Glucometer 230 334 340 Random Glucose Calcium Phosphorus Magnesium Total Bilirubin AST ALT Alkaline Phosphatase Total Protein Albumin 10/28/17 10/28/17 10/28/17 06:15 06:15 11:57 WBC 10.1 H RBC 3.44 L Hgb 10.3 L Hct 30.7 L MCV 89.2 MCH 29.9 MCHC 33.5 RDW 15.4 Plt Count 324 MPV 8.7 Neutrophils % 59.1 D Lymphocytes % 34.5 D Monocytes % 3.8 Eosinophils % 2.1 Basophils % 0.5 Sodium 142 Potassium 3.6 Chloride 110 H Carbon Dioxide 21 Anion Gap 11 BUN 10 Creatinine 0.5 L Creat Clearance w eGFR > 60 POC Glucometer 430 Random Glucose 333 H* Calcium 7.5 L Phosphorus 3.2 Magnesium 1.9 Total Bilirubin 0.4 AST 11 L ALT 18 Alkaline Phosphatase 70 Total Protein 5.6 L Albumin 2.9 L 10/28/17 10/28/17 12:15 13:31 WBC RBC Hgb Hct MCV MCH MCHC RDW Plt Count MPV Neutrophils % Lymphocytes % Monocytes % Eosinophils % Basophils % Sodium Potassium Chloride Carbon Dioxide Anion Gap BUN Creatinine Creat Clearance w eGFR POC Glucometer 277 Random Glucose 426 H* Calcium Phosphorus Magnesium Total Bilirubin AST ALT Alkaline Phosphatase Total Protein Albumin ASSESSMENT AND PLAN: This is a 47 year old woman with a history of CVA with left emiparesis, type 1 DM, diabetic gastroparesis, chronic back pain, GERD who presented to the ED with difficulty swallowing and vomiting. 1. Dysphagia secondary to esophageal stricture, severe esophagitis, moderate antral gastritis - s/p EGD with biopsies 10/27 - Continue Protonix, Carafate - Avoid NSAIDs - Repeat EGD with dilation in 2-3 weeks 2. Type 1 DM, uncontrolled, with gastroparesis - Continue Levemir, Novolog sliding scale - Continue Reglan 3. Left hemiparesis secondary to old CVA - Continue aspirin, Lipitor 4. Ok for discharge home
--- NOTE | 2017-10-28 19:48 | DS ---
Physical Exam: SUBJECTIVE: Patient seen and examined - No major overnight events; VSS, afebrile; complaining of intermittent Nausea and pain overnight; s/p EGD yesterday noted for distal esophageal stricture/ esophagitis; plan for d/c today likely with outpt f/u; still with persistent regurgitation; + chills, mild GOMEZ; denies f/n/d, CP, sob, cough, ab pain, LE edema; chronic lower back pain OBJECTIVE: Vital Signs Period Temp Pulse Resp BP Sys/Rapp Pulse Ox Last 24 Hr 98.4 F-99.4 F 68-80 20-20 107-142/69-79 100-100 PHYSICAL EXAM GENERAL: Middle aged woman, NAD HEAD: NCAT EYES: PERRL, extraocular movements intact, sclera anicteric, conjunctiva clear. No ptosis. ENT: Still with Poor dentition. No erythema, swelling or tonsillar exudates. Ears normal, nares patent, oropharynx clear without exudates, moist mucous membranes. NECK: Trachea midline, full range of motion, supple. LUNGS: CTABL, no wheezes, no crackles, no accessory muscle use. HEART: Regular rate and rhythm, S1, S2 without murmur, rub or gallop. ABDOMEN: Soft, nontender, nondistended, normoactive bowel sounds, no guarding, no rebound, no hepatosplenomegaly, no masses EXTREMITIES: 2+ pulses, warm, well-perfused, no edema. NEUROLOGICAL: Cranial nerves II through XII grossly intact. Normal speech, gait not observed. PSYCH: Normal mood, normal affect. Pleasant, interactive SKIN: Warm, dry, normal turgor, no rashes or lesions noted LABS Laboratory Results - last 24 hr 10/27/17 10/28/17 10/28/17 23:29 05:55 06:15 WBC 10.1 H RBC 3.44 L Hgb 10.3 L Hct 30.7 L MCV 89.2 MCH 29.9 MCHC 33.5 RDW 15.4 Plt Count 324 MPV 8.7 Neutrophils % 59.1 D Lymphocytes % 34.5 D Monocytes % 3.8 Eosinophils % 2.1 Basophils % 0.5 Sodium Potassium Chloride Carbon Dioxide Anion Gap BUN Creatinine Creat Clearance w eGFR POC Glucometer 334 340 Random Glucose Calcium Phosphorus Magnesium Total Bilirubin AST ALT Alkaline Phosphatase Total Protein Albumin 10/28/17 10/28/17 10/28/17 06:15 11:57 12:15 WBC RBC Hgb Hct MCV MCH MCHC RDW Plt Count MPV Neutrophils % Lymphocytes % Monocytes % Eosinophils % Basophils % Sodium 142 Potassium 3.6 Chloride 110 H Carbon Dioxide 21 Anion Gap 11 BUN 10 Creatinine 0.5 L Creat Clearance w eGFR > 60 POC Glucometer 430 Random Glucose 333 H* 426 H* Calcium 7.5 L Phosphorus 3.2 Magnesium 1.9 Total Bilirubin 0.4 AST 11 L ALT 18 Alkaline Phosphatase 70 Total Protein 5.6 L Albumin 2.9 L 10/28/17 13:31 WBC RBC Hgb Hct MCV MCH MCHC RDW Plt Count MPV Neutrophils % Lymphocytes % Monocytes % Eosinophils % Basophils % Sodium Potassium Chloride Carbon Dioxide Anion Gap BUN Creatinine Creat Clearance w eGFR POC Glucometer 277 Random Glucose Calcium Phosphorus Magnesium Total Bilirubin AST ALT Alkaline Phosphatase Total Protein Albumin Microbiology 10/23/17 17:50 Urine - Urine Clean Catch Urine Culture - Final Ab XR 10/23- notable for previous GB removal. Constipation. Barium swallow 10/24 - notable for small hiatal hernia, however grossly unremarkable CXR 10/27 - No pathology noted; distended stomach; no pneumomediastinum noted Consults: GI - Seen by Dr. Voss [facility] COURSE: Prehospital: Patient is a 47 yo F with a PMHx of CVA (july), IDDM, Gastroparesis, Chronic back pain, GERD, presented to the ED because of dyspagia/odynophagia and vomiting over the past month. Patient says the dysphagia started with solids but now its to solids ands liquids. Patient says she has been vomiting constantly with loss of appetite. She reports a 15 pound weight loss in the last month. She also says she has non-radiating, intermittent lower abdominal that started a week ago. She says she saw ENT who said her throat was "swollen" . She has an appointment with GI (Dr. Ortiz) for Friday but said she couldn't wait to see him. Patient also says she has been constipated and has not had a BM in over a week. She denies Chest pain, sob, lightheadedness, dysuria, fevers , chills, recent travel, sick contacts. ER course was notable for: (1) Morphine 4mg, Reglan, protonix Hospital: VSS on admission. Pt with glucose in 40s, given state d50 dose in ED. Pt with borderline WBC count ~11, 3+ glucose in UA and negative acetone, negative FOBT. GI consulted. Pt started on IVFs, reglan, placed on ISS and bowel regimen. Pt with persistent vomiting/regurgitation during admission with PO feeds. complaining of diarrhea, however was not witnessed by staff. Pt hyperglycemic to 670 on 10/24, placed back on home levemir dose. Pt with persistently labile BGMs during admission, ranging from 40s to 600s. Pt received esophagogram as noted above. Received EGD on 10/27 notable for distal esophageal stricture and esophagitis. Repeat CXR negative for pneumomediastinum. Pt discharged with sucralfate, po protonix and po reglan with outpt f/u with Dr. voss in two weeks for balloon dilatation of esophageal stricture. Pt recommended to adhere to a soft diet as tolerated. All questions answered on discharge. Date of Admission:10/25/17 Date of Discharge: 10/28/17 Pt is stable and medically cleared for discharge with outpt f/u with Dr. Voss. Minutes to complete discharge: 35 Discharge Summary Reason For Visit: DABETIC GASTROPARESIS ASSOCIATED WITH TYPE 1 Condition: Stable - Instructions Diet, Activity, Other Instructions: During your stay at [facility], you were treated for persistent regurgitation and poor oral intake for past month. You were seen by GI (Dr. Voss) and received an upper endoscopy, which showed a narrowing in the lower part of your esophagus , as well as inflammation, which is the likely cause of your chronic regurgitation. You are now planned for a dilation procedure of this narrowing in two weeks with Dr. Voss as an outpatient. Medications: The following medications were added to your home regimen. Please take them as specified below: Reglan 10mg, take one pill by mouth, three times a day with meals Protonix 40mg, take one dose by mouth, twice a day Carafate, take one dose by mouth, four times a day Please take colace three times a day by mouth if you experience constipation. This medication is available over the counter Please continue to take all other home medications as previously directed. Follow-ups: Please follow-up with your primary care physician in one week for further management of your medications. Please call their office to schedule an appointment. Please call within one week to schedule an appointment. Please follow-up with our survey interviewer, Dr. Voss, in two week for your outpatient dilation procedure for your esophagus. His contact number has been provided in this packet. Please call his office to make the appointment Diet/Exercise: Please continue with a clear liquid diet and advance as tolerate. As you have previously expressed, you may continue taking Glucerna by mouth as tolerated. If you experience difficulty swallowing solid foods, continue with liquids for the time being. You have no restrictions on exercise. Please return to the hospital if you experience any of the following symptoms: - Continued vomiting and inability to take anything by mouth - Any bloody, dark or green vomiting - Persistent fever/chills >3 days - Any new or concerning symptoms Referrals: Gilbert Voss MD [Staff Physician] - 2 Weeks Disposition: HOME - Home Medications Comprehensive Discharge Medication List: Ambulatory Orders Aspirin [ASA -] 325 mg PO DAILY 09/16/17 Morphine *Immediate Release* [Msir -] 60 mg PO Q6H 09/16/17 Atorvastatin Ca [Lipitor] 10 mg PO HS #30 tablet 09/17/17 Insulin Aspart [Novolog Flexpen] See Protocol SQ ACHS #2 insuln.pen 09/17/17 Insulin Detemir [Levemir Flextouch] 10 unit SQ BID #6 insuln.pen 09/17/17 Docusate Sodium [Colace -] 100 mg PO TID capsule 10/28/17 Metoclopramide HCl [Reglan -] 10 mg PO TIDAC #30 tablet 10/28/17 Pantoprazole Suspension [Protonix Packets For Oral Suspension -] 40 mg PO BID # 60 packet 10/28/17 Sucralfate Oral Suspension [Carafate Oral Suspension -] 1 gm PO QID #1200 ml 07/17 This patient is new to me today: No Emergency Visit: Yes ED Registration Date: 10/25/17 Care time: The patient presented to the Emergency Department on the above date and was hospitalized for further evaluation of their emergent condition. Critical Care patient: No - Discharge Referral Referred to [facility] Med P.C.: No
--- NOTE | 2017-10-29 13:09 | PATH ---
Surgical Pathology Report Patient Name: REG ASIF [facility]. Rec. #: [id number] /Age/Gender: 1970 (Age: 47) / F Account: [id number] Location: [facility] MED/SURG Taken: 10/27/2017 Received: 10/27/2017 Reported: 10/29/2017 Physicians: Gilbert Voss M.D. Mel Yepez M.D. Specimen(s) Received A: BX SECOND PORTION DUODENUM B: BX ANTRUM AND BODY C: BX DISTAL ESOPHAGUS Clinical History Dyspepsia Postoperative diagnosis: Esophageal stricture, esophagitis, gastritis Final Diagnosis A. DUODENUM, SECOND PORTION, BIOPSY: SMALL BOWEL MUCOSA WITHOUT SIGNIFICANT PATHOLOGIC FINDINGS. B. STOMACH, ANTRUM AND BODY, BIOPSY: GASTRIC ANTRAL AND BODY MUCOSA WITH MINIMAL CHRONIC INFLAMMATION. IMMUNOHISTOCHEMICAL STAIN FOR H. PYLORI IS NEGATIVE. C. DISTAL ESOPHAGUS, BIOPSY: SQUAMOUS MUCOSA WITH MARKED ACUTE INFLAMMATION, ULCERATION, AND GRANULATION TISSUE. PAS FUNGAL SPECIAL STAIN IS NEGATIVE. Comment: PAS special stain performed at [place], [place] ([id number]) and interpreted at [facility] is negative. Electronically Signed Taylor Rosario M.D. Gross Description A. Received in formalin, labeled "biopsy second portion of duodenum" are 2 gao, irregular portions of soft tissue measuring 0.2 and 0.3 cm. in greatest dimension. The specimens are submitted in toto in one cassette. B. Received in formalin, labeled "biopsy antrum and body" are 2 gao, irregular portions of soft tissue measuring 0.3 and 0.7 cm. in greatest dimension. The specimens are submitted in toto in one cassette. C. Received in formalin, labeled "biopsy distal esophagus" is a gao, irregular portion of soft tissue measuring 0.2 cm. in greatest dimension. The specimen is submitted in toto in one cassette. 10/27/201710/27/2017
== END 2017-10-28 17:25 | disposition home or self-care (01) | DRG 391 ==
LOC: JER 16:31 → JERBED 21:25 → UNDOADMOB 21:35 → JERBED 21:35 → J8W 10-24 02:14 → OBSVTOIN 10-25 09:16
PROVIDERS: ADMIT Internal Medicine; ATTEND Internal Medicine
PROC: 0DD68ZX Extraction of Stomach, Via Natural or Artificial Opening Endoscopic, Diagnostic (ICD-10-PCS; 2017-10-27)
PROC: 0DD58ZX Extraction of Esophagus, Via Natural or Artificial Opening Endoscopic, Diagnostic (ICD-10-PCS; 2017-10-27)
PROC: 0DD98ZX Extraction of Duodenum, Via Natural or Artificial Opening Endoscopic, Diagnostic (ICD-10-PCS; principal; 2017-10-27 14:00)
DX: K22.2 Esophageal obstruction (principal); K29.61 Other gastritis with bleeding; I69.354 Hemiplegia and hemiparesis following cerebral infarction affecting left non-dominant side; R64 Cachexia; E10.43 Type 1 diabetes mellitus with diabetic autonomic (poly)neuropathy; K31.84 Gastroparesis; E86.0 Dehydration; R11.2 Nausea with vomiting, unspecified; K21.0 Gastro-esophageal reflux disease with esophagitis; K59.03 Drug induced constipation; T40.2X5A Adverse effect of other opioids, initial encounter; R13.19 Other dysphagia; M54.5 Low back pain; G43.809 Other migraine, not intractable, without status migrainosus; E11.65 Type 2 diabetes mellitus with hyperglycemia; R63.4 Abnormal weight loss; Z68.21 Body mass index [BMI] 21.0-21.9, adult; G47.09 Other insomnia; E87.6 Hypokalemia; E83.42 Hypomagnesemia; R62.7 Adult failure to thrive; Z87.891 Personal history of nicotine dependence; Z79.4 Long term (current) use of insulin; K44.9 Diaphragmatic hernia without obstruction or gangrene
CPT/HCPCS: 36415; 71045-TC-FY; 74019-TC-FY; 74220-TC-FY; 80048; 80053; 81003; 81015; 82009; 82272; 82947; 82962; 83605; 83690; 83735; 84100; 85025; 85027; 85610; 87086; 88305-TC; 93005; 93010; 99283-25; G0378; J7030

== ENCOUNTER 2017-11-14 08:10 | Day surgery (SDC) | payer OTHER ==
[2017-11-13 12:13] VITALS: BMI 21.1
--- NOTE | 2017-11-14 09:37 | PROC ---
Endoscopy Procedure Endoscopy procedure completed. Please see scanned procedure report.
[2017-11-14] MEDS ORDERED: PROPOFOL 20 ML ONE ×4 (09:38→10:03)
[2017-11-14] MEDS ORDERED: LIDOCAINE HCL/PF 1% SDV 5ML VIAL ONE (10:03)
[2017-11-14] MEDS ORDERED: PHENYLEPHRINE HCL 10 MG/1 ML SINGLE DOSE VIAL ONE (10:16)
[2017-11-14 10:27] VITALS: TEMP 97.6
[2017-11-14 11:40] VITALS: BP 98/62; PULSE 75
== END 2017-11-14 11:40 | disposition home or self-care (01) ==
LOC: JASU-ENDO 08:10
PROVIDERS: ATTEND Internal Medicine Gastroenterology
PROC: 0DJ08ZZ Inspection of Upper Intestinal Tract, Via Natural or Artificial Opening Endoscopic (ICD-10-PCS; principal; 2017-11-14 10:30)
DX: R13.10 Dysphagia, unspecified (principal); Z53.8 Procedure and treatment not carried out for other reasons

== ENCOUNTER 2017-11-17 15:27 | Inpatient (IN) | payer OTHER ==
[2017-11-17] MEDS ORDERED: HEMOQUE TEST 1 EACH EACH ONE (15:47)
[2017-11-17 16:48] LABS: VENOUS PC02 20.4 mmHg (38-52)
[2017-11-17 16:49] LABS: VENOUS PH 6.86 (7.32-7.42)
[2017-11-17 16:52] LABS: HEMATOCRIT 42.5 % (32.4-45.2); HEMOGLOBIN 11.1 GM/dL (10.7-15.3); MCH 28.8 pg (25.7-33.7); MCHC 26.1 g/dl (32.0-36.0); MEAN CELL VOLUME 110.6 fl (80-96); MEAN PLT VOLUME 9.7 fl (7.5-11.1); PLATELET COUNT 472 K/MM3 (134-434); RBC 3.84 M/mm3 (3.60-5.2); RDW 17.5 % (11.6-15.6); WHITE BLOOD COUNT 26.1 K/mm3 (4.0-10.0)
[2017-11-17 16:53] LABS: ADD RBC MORPHOLOGY YES
[2017-11-17] MEDS ORDERED: PIPERACILLIN/TAZOB 3.375 GM 3.375 GM in DEXTROSE 5%-WATER - 50 ML IVPB ONE (16:54)
[2017-11-17] MEDS ORDERED: VANCOMYCIN 1,000 MG in DEXTROSE 5%-WATER - 250 ML IVPB ONE (16:54)
[2017-11-17 16:55] LABS: INR 0.98 (0.82-1.09); PROTHROMBIN TIME (PATIENT) 11.1 SEC (9.7-13.0)
[2017-11-17 16:57] LABS: ACTIVATED PTT 22.6 SECONDS (26.9-34.4)
[2017-11-17] MEDS ORDERED: PIPERACILLIN/TAZOB 3.375 GM 3.375 GM/50 ML BAG IVPB ONE (17:01)
[2017-11-17] MEDS ORDERED: SODIUM CHLORIDE 1,000 ML IV STA ×3 (17:01→17:32)
[2017-11-17] MEDS ORDERED: VANCOMYCIN 1 GRAM (PRE-DOCKED) 1,000 MG/250 ML BAG IVPB ONE (17:01)
[2017-11-17 17:05] LABS: URINE APPEARANCE CLEAR; URINE BILIRUBIN NEGATIVE (<2.0 mg/dL); URINE COLOR STRAW; URINE GLUCOSE (UA) 3+ (NEGATIVE); URINE KETONE 2+ (NEGATIVE); URINE LEUK ESTERASE NEGATIVE (NEGATIVE); URINE NITRITE NEGATIVE (NEGATIVE); URINE UROBILINOGEN NEGATIVE mg/dL (0.2-1.0)
[2017-11-17 17:06] LABS: ALBUMIN 3.2 g/dl (3.4-5.0); BILIRUBIN,TOTAL 0.4 mg/dL (0.2-1.0); BLOOD UREA NITROGEN 34 mg/dL (7-18); CALCIUM 8.2 mg/dL (8.5-10.1); CHLORIDE 102 mmol/L (98-107); CREATININE 2.3 mg/dL (0.55-1.02); LIPASE 117 U/L (73-393); MAGNESIUM 3.1 mg/dL (1.8-2.4); SGOT/AST 59 U/L (15-37); SGPT/ALT 29 U/L (12-78); SODIUM 136 mmol/L (136-145); TOT PROT 6.2 g/dl (6.4-8.2)
[2017-11-17 17:12] LABS: ALK PHOS 110 U/L (45-117)
[2017-11-17 17:18] LABS: URINE PROTEIN 1+ (NEGATIVE)
[2017-11-17 17:19] LABS: EPI CELLS RARE /HPF (FEW); URINE BACTERIA RARE /hpf (NONE SEEN); URINE MUCUS RARE
--- NOTE | 2017-11-17 17:19 | PDOC ---
History of Present Illness - History of Present Illness Initial Comments: 11/17/17 17:23 The patient is a 47 year old female with history of IDDM with gastroparesis, CVA , brought in by EMS for altered mental status. Per EMS, the patient's neighbor had been trying to reach the patient but was not able to contact her. The neighbor found the patient lying on the floor of her home minimally responsive. Patient is unable to provide remainder of history secondary to clinical condition. She has history of multiple ED visits for DKA. <Raiza Zaidi - Last Filed: 11/17/17 18:06> - General History Source: EMS, Old Records Exam Limitations: Clinical Condition <Gordo Way - Last Filed: 11/21/17 09:53> - General Chief Complaint: Altered Mental Status Stated Complaint: NON RESPONSIVE Time Seen by Provider: 11/17/17 15:30 Past History <Raiza Zaidi - Last Filed: 11/17/17 18:06> - Past Medical History CVA: Yes COPD: No Diabetes: Yes (IDDM) GI Disorders: Yes (GASTROPARESIS) - Surgical History Cholecystectomy: Yes (AGE 19) - Immunization History Td Vaccination: Yes Immunization Up to Date: Yes - Suicide/Smoking/Psychosocial Hx Smoking Status: Yes Smoking History: Unknown if ever smoked Years of Tobacco Use: 15 Have you smoked in the past 12 months: No Number of Cigarettes Smoked Daily: 20 Information on smoking cessation initiated: No 'Breaking Loose' booklet given: 11/14/17 Hx Alcohol Use: No Drug/Substance Use Hx: No Substance Use Type: Marijuana Hx Substance Use Treatment: No <Gordo Way - Last Filed: 11/21/17 09:53> - Past Medical History Allergies/Adverse Reactions: Allergies Allergy/AdvReac Type Severity Reaction Status Date / Time No Known Allergies Allergy Verified 10/23/17 16:32 Home Medications: Ambulatory Orders Aspirin [ASA -] 325 mg PO DAILY 11/20/17 Atorvastatin Ca [Lipitor] 10 mg PO HS 11/20/17 Insulin (Levemir) [Levemir Vial] 10 unit SQ HS 11/20/17 Insulin (Novolog) [Novolog -] 0 units SQ AC 11/20/17 Pantoprazole Sodium [Protonix] 40 mg PO BID 11/20/17 Review of Systems - Review of Systems Able to Perform ROS?: No Comments:: 11/17/17 17:39 Patient is altered and unable to provide review of systems. <Raiza Zaidi - Last Filed: 11/17/17 18:06> *Physical Exam - Vital Signs Last Vital Signs Temp Pulse Resp BP Pulse Ox 106 H 28 H 65/40 100 11/17/17 15:44 11/17/17 15:44 11/17/17 15:44 11/17/17 15:44 - Physical Exam Comments: 11/17/17 17:46 GENERAL: Awake. AAOx0. Moaning imcomprehensibly. HEAD: No signs of trauma EYES: PERRLA, EOMI, sclera anicteric, conjunctiva clear ENT: Auricles normal inspection, hearing grossly normal, nares patent, oropharynx clear without exudates. +Dry MM. NECK: Normal ROM, supple, no lymphadenopathy, JVD, or masses LUNGS: +Kussmaul breathing, tachypneic. Breath sounds equal, clear to auscultation bilaterally. No wheezes, and no crackles HEART: Regular rate and rhythm, normal S1 and S2, no murmurs, rubs or gallops ABDOMEN: Soft, normoactive bowel sounds. No guarding, no rebound. No masses EXTREMITIES: +L proximal tib IO in place. Normal range of motion, no edema. No clubbing or cyanosis. No cords or erythema. NEUROLOGICAL: Unable to assess. SKIN: Warm, Dry, normal turgor, no rashes or lesions noted. No obvious skin breakdown. <Raiza Zaidi - Last Filed: 11/17/17 18:06> - Vital Signs Last Vital Signs Temp Pulse Resp BP Pulse Ox 106 H 28 H 65/40 100 11/17/17 15:44 11/17/17 15:44 11/17/17 15:44 11/17/17 15:[address] <[address] - Last Filed: 11/21/17 09:53> Moderate Sedation - Procedure Monitoring Vital Signs: Vital Signs Temp Pulse Resp BP Pulse Ox 106 H 28 H 65/40 100 11/17/17 15:44 11/17/17 15:44 11/17/17 15:44 11/17/17 15:44 <Raiza Zaidi - Last Filed: 11/17/17 18:06> - Procedure Monitoring Vital Signs: Vital Signs Temp Pulse Resp BP Pulse Ox 106 H 28 H 65/40 100 11/17/17 15:44 11/17/17 15:44 11/17/17 15:44 11/17/17 15:[address] <[address] - Last Filed: 11/21/17 09:53> Procedures - Consent Consent obtained: Unable to obtain - Central Line Central Line Lumen: triple Central Line Position: femoral (R) Anesthesia: 1% Lidocaine Amount of anesthesia (ccs): 2 Complications: none Post Central Line Insertion: sutured, good blood return Progress: 11/17/17 17:59 Under ultrasound guidance and sterile conditions 11/17/17 18:[address] Asif Fink under my supervision. <Gordo Way - Last Filed: 11/21/17 09:53> Heart Score/ECG Review #1 ECG reviewed & interpreted by me at: 17:00 11/17/17 18:05 NSR 101, no std/rufina, normal axis, normal intervals, peaked T waves, QTC 466 msec <[address] - Last Filed: 11/21/17 09:53> ED Treatment Course - LABORATORY CBC & Chemistry Diagram: 11/17/17 16:30 11/17/17 16:30 - ADDITIONAL ORDERS Additional order review: Laboratory Results 11/17/17 11/17/17 11/17/17 17:00 16:30 16:30 PT with INR INR PTT (Actin FS) VBG pH 6.86 L* POC VBG pCO2 20.4 L D POC VBG pO2 142.0 H Mixed VBG HCO3 3.5 L* Serum , Qual Negative Urine Color Straw Urine Appearance Clear Urine pH 5.0 D Ur Specific Pitman 1.020 Urine Protein 1+ H Urine Glucose (UA) 3+ H Urine Ketones 2+ H Urine Blood Negative Urine Nitrite Negative Urine Bilirubin Negative Urine Urobilinogen Negative Ur Leukocyte Esterase Negative Urine WBC (Auto) 1 Urine RBC (Auto) <1 Ur Epithelial Cells Rare Urine Bacteria Rare Urine Mucus Rare 11/17/17 16:30 PT with INR 11.10 INR 0.98 PTT (Actin FS) 22.6 L VBG pH POC VBG pCO2 POC VBG pO2 Mixed VBG HCO3 Serum , Qual Urine Color Urine Appearance Urine pH Ur Specific Pitman Urine Protein Urine Glucose (UA) Urine Ketones Urine Blood Urine Nitrite Urine Bilirubin Urine Urobilinogen Ur Leukocyte Esterase Urine WBC (Auto) Urine RBC (Auto) Ur Epithelial Cells Urine Bacteria Urine Mucus 11/17/17 16:30 RBC 3.84 MCV 110.6 H D MCHC 26.1 L RDW 17.5 H D MPV 9.7 D Neutrophils % No Result Required. Lymphocytes % No Result Required. <aRiza Zaidi - Last Filed: 11/17/17 18:06> - LABORATORY CBC & Chemistry Diagram: 11/20/17 06:00 11/20/17 06:00 - ADDITIONAL ORDERS Additional order review: Laboratory Results 11/17/17 11/17/17 11/17/17 16:30 16:30 16:30 PT with INR 11.10 INR 0.98 PTT (Actin FS) 22.6 L VBG pH 6.86 L* POC VBG pCO2 20.4 L D POC VBG pO2 142.0 H Mixed VBG HCO3 3.5 L* Serum , Qual Negative 11/17/17 16:30 RBC 3.84 MCV 110.6 H D MCHC 26.1 L RDW 17.5 H D MPV 9.7 D Neutrophils % No Result Required. Lymphocytes % No Result Required. - RADIOLOGY Radiology Studies Ordered: Category Date Time Status CHEST X-RAY PORTABLE* [RAD] Stat Radiology 11/17/17 15:36 Taken <[address] - Last Filed: 11/21/17 09:53> Medical Decision Making - Medical Decision Making 11/17/17 17:[address] Burns, environmental aid for medicine, who agreed to admission. <Raiza Zaidi - Last Filed: 11/17/17 18:06> - Critical Care Time Total Critical Care Time (minutes): 60 Critical Care Statement: The care of this patient involved high complexity decision making to prevent further life threatening deterioration of the patient 's condition and/or to evaluate & treat vital organ system(s) failure or risk of failure. - Medical Decision Making 11/17/17 17:13 47 year old female with past medical history of type 1 diabetes, DKA, CVA, chronic back pain, gastroparesis brought in by EMS for altered mental status. According to EMS, the patient's neighbor was attempting to find the patient but was unable to do so. Into the room and found the patient on the floor minimally responsive. Patient has prior history of DKA days. Patient able to provide further review systems given clinical illness. EMS was activated. Unable to attempt to place peripheral IV and EMS had placed left prox tib IO. Pt seen immediately by the ED team. Pt with Kussmaul breathing. The patient was critically ill and workup. Demonstrates the patient is in diabetic ketoacidosis. Patient is quite acidotic. Patient will require IV fluids and insulin bolus and drip. Empiric antibiotics with the elevated white blood cell count. We attempted peripheral IVs but was unsuccessful likely secondary to hypovolemia. Given that the patient was hypotensive and critically ill, patient had a right triple-lumen femoral vein catheter placed under ultrasound guidance and sterile conditions. The patient should be admitted to the ICU. Case is discussed with the ICU and with Dr. Burns. Case discussed in detail with admitting physician including history, physical exam and ancillary studies. Admitting physician has assumed care for the patient, will follow all pending diagnostics and will complete the evaluation and treatment. <Gordo Way - Last Filed: 11/21/17 09:53> *DC/Admit/Observation/Transfer - Attestations Scribe Attestion: 11/17/17 17:50 Documentation prepared by Raiza Zaidi, acting as medical assistant secretary for Gordo Way MD. <Raiza Zaidi - Last Filed: 11/17/17 18:06> <Gordo Way - Last Filed: 11/21/17 09:53> Diagnosis at time of Disposition: Ketoacidosis in type I diabetes mellitus - Discharge Dispostion Disposition: HOME
[2017-11-17 17:27] LABS: ANION GAP 29 (8-16); CO2 5 mmol/L (21-32)
[2017-11-17 17:28] LABS: GLUCOSE,RANDOM 1375 mg/dL (74-106); POTASSIUM 6.8 mmol/L (3.5-5.1)
[2017-11-17 17:29] LABS: PHOSPHOROUS 12.4 mg/dL (2.5-4.9)
[2017-11-17] MEDS ORDERED: INSULIN REGULAR HUMAN 100 UNITS/ML *VIAL IVPUSH ONE (17:29)
[2017-11-17] MEDS ORDERED: INSULIN REGULAR 100 UNITS in SODIUM CHLORIDE 99 ML IVPB SCH (17:30)
[2017-11-17 17:51] LABS: URINE AMPHETAMINES NEGATIVE ng/ml (CUTOFF=500); URINE BARBITURATES NEGATIVE ng/ml (CUTOFF=200)
[2017-11-17] MEDS ORDERED: INSULIN REGULAR HUMAN 100 UNITS/ML *VIAL ONE (17:51)
[2017-11-17 17:52] LABS: COCAINE, UR NEGATIVE ng/ml (CUTOFF=300); METHADONE, UR NEGATIVE ng/ml (CUTOFF=300); PHENCYCLIDINE,URINE NEGATIVE ng/ml (CUTOFF=25); URINE BENZODIAZEPINES NEGATIVE ng/ml (CUTOFF=200)
[2017-11-17] MEDS ORDERED: SODIUM CHLORIDE 0.9% 500 ML INFUS.BAG IV ONE (17:53)
[2017-11-17 17:54] LABS: OPIATES, URI POSITIVE ng/ml (CUTOFF=300)
[2017-11-17] MEDS ORDERED: CALCIUM GLUCONATE 10% - 1,000 MG/10 ML VIAL IVPB ONE (18:00)
[2017-11-17 18:09] LABS: MACROCYTOSIS 1+
--- NOTE | 2017-11-17 20:13 | HP ---
Admitting History and Physical - Primary Care Physician PCP: Carol Ann Burns - Admission History of Present Illness: 47 year old female with history of IDDM with gastroparesis, CVA, brought in by EMS for altered mental status. Per EMS, the patient's neighbor had been trying to reach the patient but was not able to contact her. The neighbor found the patient lying on the floor of her home minimally responsive. Patient is unable to provide remainder of history secondary to clinical condition. She has history of multiple ED visits for DKA. 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: CVA (right MCA), Migraine Gastrointestinal: Yes: Other (Gastroparesis) ...LMP: 04/14/13 Musculoskeletal: Yes: Chronic low back pain Endocrine: Yes: Diabetes Mellitus - Past Surgical History Past Surgical History: Yes: Cholecystectomy - Smoking History Smoking history: Unknown if ever smoked Have you smoked in the past 12 months: No Aproximately how many cigarettes per day: 20 - Alcohol/Substance Use Hx Alcohol Use: No History of Substance Use: reports: None - Social History ADL: Independent History of Recent Travel: No Home Medications - Allergies Allergies/Adverse Reactions: Allergies Allergy/AdvReac Type Severity Reaction Status Date / Time No Known Allergies Allergy Verified 10/23/17 16:32 - Home Medications Home Medications: Ambulatory Orders Unobtainable [Unobtainable] 11/17/17 Family Disease History - Family Disease History Family Disease History: Heart Disease: Father (cad) Physical Examination Vital Signs: Vital Signs Temperature 96.9 F L 11/17/17 18:59 Pulse Rate 107 H 11/17/17 18:59 Respiratory Rate 28 H 11/17/17 18:59 Blood Pressure 105/54 11/17/17 18:59 O2 Sat by Pulse Oximetry (%) 97 11/17/17 18:59 Constitutional: Yes: Moderate Distress Eyes: Yes: Conjunctiva Clear HENT: Yes: Atraumatic Neck: Yes: Supple Cardiovascular: Yes: Regular Rate and Rhythm, Tachycardia Respiratory: Yes: Rhonchi Gastrointestinal: Yes: Normal Bowel Sounds Extremities: Yes: WNL Edema: No Neurological: Yes: Other (pt is moaning, not responding to questions) Labs: CBC, BMP 11/17/17 16:30 11/17/17 16:30 Problem List - Problems (1) Diabetes mellitus, insulin dependent (IDDM), uncontrolled Assessment/Plan: on insulin drip bgms Code(s): E10.65 - TYPE 1 DIABETES MELLITUS WITH HYPERGLYCEMIA Qualifiers: Diabetes mellitus complication status: with ketoacidosis (2) Diabetic keto-acidosis Assessment/Plan: came to hosp few times in the past for same fu labs ivf, iv insulin replace K when needed Code(s): E13.10 - OTH DIABETES MELLITUS WITH KETOACIDOSIS WITHOUT COMA (3) Leukocytosis Assessment/Plan: cxs sent cxr no infilterate on emperic abx id to see pt Code(s): D72.829 - ELEVATED WHITE BLOOD CELL COUNT, UNSPECIFIED (4) Septic shock Assessment/Plan: on ivf and iv abx cxs sent Code(s): A41.9 - SEPSIS, UNSPECIFIED ORGANISM; R65.21 - SEVERE SEPSIS WITH SEPTIC SHOCK Assessment/Plan Laboratory Tests 11/17/17 11/17/17 11/17/17 16:30 16:30 16:30 WBC 26.1 H D RBC 3.84 Hgb 11.1 Hct 42.5 D MCV 110.6 H D MCH 28.8 MCHC 26.1 L RDW 17.5 H D Plt Count 472 H D MPV 9.7 D Neutrophils % No Result Required. Neutrophils % (Manual) 68.0 D Band Neutrophils % 14.0 Lymphocytes % No Result Required. Lymphocytes % (Manual) 12.0 D Monocytes % (Manual) 3 L Eosinophils % (Manual) 0.0 Basophils % (Manual) 0.0 Nucleated RBC % 0 Metamyelocytes 1 Hypochromia 1+ Macrocytosis 1+ PT with INR 11.10 INR 0.98 PTT (Actin FS) 22.6 L VBG pH 6.86 L* POC VBG pCO2 20.4 L D POC VBG pO2 142.0 H Mixed VBG HCO3 3.5 L* Sodium Potassium Chloride Carbon Dioxide Anion Gap BUN Creatinine Creat Clearance w eGFR Random Glucose Lactic Acid Calcium Phosphorus Magnesium Total Bilirubin AST ALT Alkaline Phosphatase Creatine Kinase Troponin I Total Protein Albumin Lipase Serum , Qual Urine Color Urine Appearance Urine pH Ur Specific [place] Urine Protein Urine Glucose (UA) Urine Ketones Urine Blood Urine Nitrite Urine Bilirubin Urine Urobilinogen Ur Leukocyte Esterase Urine WBC (Auto) Urine RBC (Auto) Ur Epithelial Cells Urine Bacteria Urine Mucus Opiates Screen Methadone Screen Barbiturate Screen Phencyclidine Screen Ur Amphetamines Screen MDMA (Ecstasy) Screen Benzodiazepines Screen Cocaine Screen U Marijuana (THC) Screen 11/17/17 11/17/17 11/17/17 16:30 16:30 16:35 WBC RBC Hgb Hct MCV MCH MCHC RDW Plt Count MPV Neutrophils % Neutrophils % (Manual) Band Neutrophils % Lymphocytes % Lymphocytes % (Manual) Monocytes % (Manual) Eosinophils % (Manual) Basophils % (Manual) Nucleated RBC % Metamyelocytes Hypochromia Macrocytosis PT with INR INR PTT (Actin FS) VBG pH POC VBG pCO2 POC VBG pO2 Mixed VBG HCO3 Sodium 136 Potassium 6.8 H* Chloride 102 Carbon Dioxide 5 L Anion Gap 29 H BUN 34 H Creatinine 2.3 H Creat Clearance w eGFR 22.63 Random Glucose 1375 H* Lactic Acid 5.8 H* Calcium 8.2 L Phosphorus 12.4 H* Magnesium 3.1 H Total Bilirubin 0.4 AST 59 H ALT 29 Alkaline Phosphatase 110 Creatine Kinase 82 Troponin I < 0.02 Total Protein 6.2 L Albumin 3.2 L Lipase 117 Serum , Qual Negative Urine Color Urine Appearance Urine pH Ur Specific [place] Urine Protein Urine Glucose (UA) Urine Ketones Urine Blood Urine Nitrite Urine Bilirubin Urine Urobilinogen Ur Leukocyte Esterase Urine WBC (Auto) Urine RBC (Auto) Ur Epithelial Cells Urine Bacteria Urine Mucus Opiates Screen Methadone Screen Barbiturate Screen Phencyclidine Screen Ur Amphetamines Screen MDMA (Ecstasy) Screen Benzodiazepines Screen Cocaine Screen U Marijuana (THC) Screen 11/17/17 11/17/17 17:00 17:00 WBC RBC Hgb Hct MCV MCH MCHC RDW Plt Count MPV Neutrophils % Neutrophils % (Manual) Band Neutrophils % Lymphocytes % Lymphocytes % (Manual) Monocytes % (Manual) Eosinophils % (Manual) Basophils % (Manual) Nucleated RBC % Metamyelocytes Hypochromia Macrocytosis PT with INR INR PTT (Actin FS) VBG pH POC VBG pCO2 POC VBG pO2 Mixed VBG HCO3 Sodium Potassium Chloride Carbon Dioxide Anion Gap BUN Creatinine Creat Clearance w eGFR Random Glucose Lactic Acid Calcium Phosphorus Magnesium Total Bilirubin AST ALT Alkaline Phosphatase Creatine Kinase Troponin I Total Protein Albumin Lipase Serum , Qual Urine Color Straw Urine Appearance Clear Urine pH 5.0 D Ur Specific [place] 1.020 Urine Protein 1+ H Urine Glucose (UA) 3+ H Urine Ketones 2+ H Urine Blood Negative Urine Nitrite Negative Urine Bilirubin Negative Urine Urobilinogen Negative Ur Leukocyte Esterase Negative Urine WBC (Auto) 1 Urine RBC (Auto) <1 Ur Epithelial Cells Rare Urine Bacteria Rare Urine Mucus Rare Opiates Screen Positive Methadone Screen Negative Barbiturate Screen Negative Phencyclidine Screen Negative Ur Amphetamines Screen Negative MDMA (Ecstasy) Screen Negative Benzodiazepines Screen Negative Cocaine Screen Negative U Marijuana (THC) Screen Negative Active Medications Generic Name Dose Route Start Last Admin Trade Name Donavan PRN Reason Stop Dose Admin Insulin Human Regular 100 100 mls @ 5.44 mls/hr 11/17/17 17:30 11/17/17 18:00 units/ Sodium Chloride IVPB 0.1 units/kg/hr TITR [facility] 5.44 mls/hr Protocol Administration 0.1 UNITS/KG/HR Active Medications Generic Name Dose Route Start Last Admin Trade Name Donavan PRN Reason Stop Dose Admin Heparin Sodium (Porcine) 5,000 unit 11/17/17 22:00 Heparin - SQ BID [facility] Insulin Human Regular 100 100 mls @ 5.44 mls/hr 11/17/17 17:30 11/17/17 18:00 units/ Sodium Chloride IVPB 0.1 units/kg/hr TITR [facility] 5.44 mls/hr Protocol Administration 0.1 UNITS/KG/HR Sodium Chloride 1,000 mls @ 100 mls/hr 11/17/17 20:15 Normal Saline - IV ASDIR [facility] cc time 60 min Active Medications Generic Name Dose Route Start Last Admin Trade Name Donavan PRN Reason Stop Dose Admin Heparin Sodium (Porcine) 5,000 unit 11/17/17 22:00 11/18/17 12:27 Heparin - SQ 5,000 unit BID [facility] Administration Piperacillin Sod/Tazobactam 50 mls @ 100 mls/hr 11/18/17 05:00 Sod 3.375 gm/ Dextrose IVPB Q12H [facility] Protocol Potassium Phosphate 40 mm/ 513.3333 mls @ 64.167 mls/hr 11/18/17 08:30 12:27 Sodium Chloride IVPB 11/18/17 16:29 64.167 mls/hr ONCE ONE Administration Potassium Chloride/Dextrose/Sod Cl 20 meq in 1,000 mls @ 100 mls/hr 11/18/17 08:15 11/18/17 08:21 D5-1/2ns+20 Meq Kcl - IV 100 mls/hr ASDIR [facility] Administration Insulin Aspart 1 vial 11/18/17 14:00 11/18/17 15:37 Novolog Vial Sliding Scale - [facility]Q [facility] Insulin Detemir 10 units 11/18/17 22:00 Levemir Vial SQ [facility] Ondansetron HCl 4 mg 11/18/17 01:34 11/18/17 09:02 Zofran Injection IVPUSH 4 mg Q4H PRN Administration NAUSEA AND/OR VOMITING
[2017-11-17] MEDS ORDERED: SODIUM CHLORIDE 1,000 ML IV SCH (20:15)
[2017-11-17 20:23] LABS: ACETONE SERUM POSITIVE LARGE 3+ (NEGATIVE)
[2017-11-17 20:57] LABS: ANION GAP 20 (8-16); BLOOD UREA NITROGEN 32 mg/dL (7-18); CALCIUM 8.2 mg/dL (8.5-10.1); CHLORIDE 116 mmol/L (98-107); CO2 8 mmol/L (21-32); CREATININE 2.3 mg/dL (0.55-1.02); POTASSIUM 3.6 mmol/L (3.5-5.1); SODIUM 144 mmol/L (136-145)
[2017-11-17 20:57] LABS: VENOUS PC02 24.1 mmHg (38-52); VENOUS PO2 57.8 mmHg (28-48)
[2017-11-17 21:01] LABS: GLUCOSE,RANDOM 890 mg/dL (74-106)
[2017-11-17 21:23] LABS: BASO % 0.3 % (0-2.0); EOS % 0.2 % (0-4.5); HEMATOCRIT 38.1 % (32.4-45.2); HEMOGLOBIN 11.2 GM/dL (10.7-15.3); LYMPH % 15.3 % (8-40); MCH 28.8 pg (25.7-33.7); MCHC 29.4 g/dl (32.0-36.0); MEAN CELL VOLUME 98.1 fl (80-96); MEAN PLT VOLUME 8.4 fl (7.5-11.1); MONO % 4.6 % (3.8-10.2); NEUT % 79.6 % (42.8-82.8); PLATELET COUNT 410 K/MM3 (134-434); RBC 3.88 M/mm3 (3.60-5.2); RDW 16.7 % (11.6-15.6); WHITE BLOOD COUNT 23.4 K/mm3 (4.0-10.0)
--- NOTE | 2017-11-17 21:24 | PDOC ---
*Physical Exam - Vital Signs Last Vital Signs Temp Pulse Resp BP Pulse Ox 98.1 F 103 H 31 H 108/57 100 11/17/17 20:55 11/17/17 20:55 11/17/17 20:55 11/17/17 20:55 11/17/17 20:55 ED Treatment Course - LABORATORY CBC & Chemistry Diagram: 11/19/17 05:00 11/19/17 05:00 - ADDITIONAL ORDERS Additional order review: Laboratory Results 11/17/17 11/17/17 11/17/17 17:00 17:00 16:35 PT with INR INR PTT (Actin FS) VBG pH POC VBG pCO2 POC VBG pO2 Mixed VBG HCO3 Sodium Potassium Chloride Carbon Dioxide Anion Gap BUN Creatinine Creat Clearance w eGFR Random Glucose Lactic Acid 5.8 H* Calcium Phosphorus Magnesium Total Bilirubin AST ALT Alkaline Phosphatase Creatine Kinase Troponin I Total Protein Albumin Lipase Serum , Qual Urine Color Straw Urine Appearance Clear Urine pH 5.0 D Ur Specific [place] 1.020 Urine Protein 1+ H Urine Glucose (UA) 3+ H Urine Ketones 2+ H Urine Blood Negative Urine Nitrite Negative Urine Bilirubin Negative Urine Urobilinogen Negative Ur Leukocyte Esterase Negative Urine WBC (Auto) 1 Urine RBC (Auto) <1 Ur Epithelial Cells Rare Urine Bacteria Rare Urine Mucus Rare Opiates Screen Positive Methadone Screen Negative Barbiturate Screen Negative Phencyclidine Screen Negative Ur Amphetamines Screen Negative MDMA (Ecstasy) Screen Negative Benzodiazepines Screen Negative Cocaine Screen Negative U Marijuana (THC) Screen Negative Acetone, Qual 11/17/17 11/17/17 11/17/17 16:30 16:30 16:30 PT with INR INR PTT (Actin FS) VBG pH 6.86 L* POC VBG pCO2 20.4 L D POC VBG pO2 142.0 H Mixed VBG HCO3 3.5 L* Sodium 136 Potassium 6.8 H* Chloride 102 Carbon Dioxide 5 L Anion Gap 29 H BUN 34 H Creatinine 2.3 H Creat Clearance w eGFR 22.63 Random Glucose 1375 H* Lactic Acid Calcium 8.2 L Phosphorus 12.4 H* Magnesium 3.1 H Total Bilirubin 0.4 AST 59 H ALT 29 Alkaline Phosphatase 110 Creatine Kinase 82 Troponin I < 0.02 Total Protein 6.2 L Albumin 3.2 L Lipase 117 Serum , Qual Negative Urine Color Urine Appearance Urine pH Ur Specific [place] Urine Protein Urine Glucose (UA) Urine Ketones Urine Blood Urine Nitrite Urine Bilirubin Urine Urobilinogen Ur Leukocyte Esterase Urine WBC (Auto) Urine RBC (Auto) Ur Epithelial Cells Urine Bacteria Urine Mucus Opiates Screen Methadone Screen Barbiturate Screen Phencyclidine Screen Ur Amphetamines Screen MDMA (Ecstasy) Screen Benzodiazepines Screen Cocaine Screen U Marijuana (THC) Screen Acetone, Qual Positive large 3+ H 11/17/17 16:30 PT with INR 11.10 INR 0.98 PTT (Actin FS) 22.6 L VBG pH POC VBG pCO2 POC VBG pO2 Mixed VBG HCO3 Sodium Potassium Chloride Carbon Dioxide Anion Gap BUN Creatinine Creat Clearance w eGFR Random Glucose Lactic Acid Calcium Phosphorus Magnesium Total Bilirubin AST ALT Alkaline Phosphatase Creatine Kinase Troponin I Total Protein Albumin Lipase Serum , Qual Urine Color Urine Appearance Urine pH Ur Specific [place] Urine Protein Urine Glucose (UA) Urine Ketones Urine Blood Urine Nitrite Urine Bilirubin Urine Urobilinogen Ur Leukocyte Esterase Urine WBC (Auto) Urine RBC (Auto) Ur Epithelial Cells Urine Bacteria Urine Mucus Opiates Screen Methadone Screen Barbiturate Screen Phencyclidine Screen Ur Amphetamines Screen MDMA (Ecstasy) Screen Benzodiazepines Screen Cocaine Screen U Marijuana (THC) Screen Acetone, Qual 11/17/17 16:30 RBC 3.84 MCV 110.6 H D MCHC 26.1 L RDW 17.5 H D MPV 9.7 D Neutrophils % No Result Required. Lymphocytes % No Result Required. - Medications Given in the ED: ED Medications Discontinued Medications Generic Name Dose Route Start Last Admin Trade Name Freq PRN Reason Stop Dose Admin Calcium Gluconate 2,000 mg 11/17/17 18:00 11/17/17 18:58 Calcium Gluconate 10% - IVPB 11/17/17 18:01 2,000 mg ONCE ONE Administration Piperacillin Sod/Tazobactam 50 mls @ 100 mls/hr 11/17/17 16:54 11/17/17 16:55 Sod 3.375 gm/ Dextrose IVPB 11/17/17 17:23 100 mls/hr ONCE ONE Administration Protocol Vancomycin HCl 1,000 mg/ 250 mls @ 166.667 mls/hr 11/17/17 16:54 11/17/17 17: 26 Dextrose IVPB 11/17/17 18:23 166.667 mls/hr ONCE ONE Administration Protocol Sodium Chloride 1,000 mls @ 1,000 mls/hr 11/17/17 17:01 11/17/17 16:30 Normal Saline - IV 11/17/17 18:00 1,000 mls/hr [facility]IR [facility] Administration Sodium Chloride 1,000 mls @ 1,000 mls/hr 11/17/17 17:32 11/17/17 16:00 Normal Saline - IV 11/17/17 18:31 1,000 mls/hr [facility] Administration Sodium Chloride 1,000 mls @ 1,000 mls/hr 11/17/17 17:32 11/17/17 17:34 Normal Saline - IV 11/17/17 18:31 1,000 mls/hr [facility] Administration Insulin Human Regular 5 units 11/17/17 17:29 11/17/17 18:00 Novolin R Vial *For Ivpush Or Iv Drip Only* IVPUSH 11/17/17 17:30 5 units ONCE ONE Administration Sodium Chloride 1,000 ml 11/17/17 17:53 11/17/17 18:30 Normal Saline - IV 11/17/17 17:54 1,000 ml ONCE ONE Administration Medical Decision Making - Medical Decision Making 11/17/17 21:22 Patient K noted to decrease from 6.8 to 3.6. ICU contacted and made aware of electrolyte change. K-riders ordered for repletion. ICU will manage patient care from now on. *DC/Admit/Observation/Transfer Diagnosis at time of Disposition: Ketoacidosis in type I diabetes mellitus - Discharge Dispostion Decision to Admit order: Yes - Referrals - Patient Instructions - Post Discharge Activity
[2017-11-17] MEDS: KCL 10 MEQ IVPB 10 MEQ/100 ML INFUS.BAG IVPB SCH ×3 (21:41→23:37)
[2017-11-17] MEDS ORDERED: KCL 10 MEQ IVPB 10 MEQ/100 ML INFUS.BAG IVPB ONE (21:42)
[2017-11-17 21:50] LABS: ALK PHOS 95 U/L (45-117); ANION GAP 20 (8-16); CALCIUM 8.3 mg/dL (8.5-10.1); CHLORIDE 119 mmol/L (98-107); CO2 7 mmol/L (21-32); CREATININE 2.3 mg/dL (0.55-1.02); POTASSIUM 3.3 mmol/L (3.5-5.1); SGOT/AST 69 U/L (15-37); SGPT/ALT 29 U/L (12-78); SODIUM 146 mmol/L (136-145)
[2017-11-17 21:55] LABS: BILIRUBIN,TOTAL 0.4 mg/dL (0.2-1.0); BLOOD UREA NITROGEN 30 mg/dL (7-18); TOT PROT 5.9 g/dl (6.4-8.2)
[2017-11-17 21:57] LABS: GLUCOSE,RANDOM 741 mg/dL (74-106)
--- NOTE | 2017-11-17 23:01 | CONSULT ---
Consult - text type - Consultation Consultation Note: Consult Specialty:: Pulmonary Critical Care Reason for Consultation:: AMS, DKA - History of Present Illness History of Present Illness: Briefly Ms Rosas is a 47 yo woman well known to this service for frequent admissions for DKA with h/o active tobacco use, HLD, poorly controlled IDDM c/b recent CVA (left sided hemiparesis), gastroparesis last admitted in September for same. Today was found down in home by neighbor during welfare check. Pt was altered, groaning and rolling around on floor. 911 was activated and pt was brought to ED here. In ED pt was hypothermic 95, tachy 100s, RR 30s, normotensive. BGL was >1200, ph 6.8, Hco3 8, lactate 6, WBC 26 (14% bands). She was given IV insulin, broad spectrum abx (vanc/zosyn) though there was no clear localizing source (Ua without wbc, cxr without infiltrate, lfts wnl, cxl pending) and a total of 4L of isotonic fluid. Pt was transferred to ICU for further care. In ICU pt was arousable to loud voice, intermittently answered simple questions was moving all ext equally. Her Resp rate had improved, BGL was 180, D5 1/2 NS with 20meq K started at 75, Repeat ABG w/ pH 7.3. 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), Migraine Gastrointestinal: Yes: Other (Gastroparesis) ...LMP: 04/14/13 Musculoskeletal: Yes: Chronic low back pain Endocrine: Yes: Diabetes Mellitus Additional Medical History: dka in the past - Past Surgical History Past Surgical History: Yes: Cholecystectomy - Alcohol/Substance Use Hx Alcohol Use: No History of Substance Use: reports: None - Smoking History Smoking history: Current every day smoker Have you smoked in the past 12 months: Yes Aproximately how many cigarettes per day: 20 - Social History ADL: Independent History of Recent Travel: No Home Medications - Allergies Allergies/Adverse Reactions: Allergies Allergy/AdvReac Type Severity Reaction Status Date / Time No Known Allergies Allergy Verified 08/15/17 12:12 Home Medications Medication Instructions Recorded Unobtainable [Unobtainable] 11/17/17 Current Medications Heparin Sodium (Porcine) (Heparin -) 5,000 unit SQ BID [facility] Insulin Human Regular 100 (units/ Sodium Chloride) 100 mls @ 5.44 mls/hr IVPB TITR [facility]; 0.1 UNITS/KG/HR PRN Reason: Protocol Last Admin: 11/17/17 18:00 Dose: 0.1 units/kg/hr, 5.44 mls/hr Sodium Chloride (Normal Saline -) 1,000 mls @ 100 mls/hr IV ASDIR [facility] Last Admin: 11/17/17 20:19 Dose: 100 mls/hr Potassium Chloride (Potassium Chloride 10 Meq Premix Ivpb -) 10 meq in 100 mls @ 100 mls/hr IVPB Q60M [facility] Stop: 11/18/17 00:29 Last Admin: 11/17/17 21:41 Dose: 100 mls/hr Family Disease History - Family Disease History Family Disease History: Heart Disease: Father (cad) Vital Signs Temp 98.1 F 11/17/17 20:55 Pulse 103 H 11/17/17 20:55 Resp 31 H 11/17/17 20:55 BP 108/57 11/17/17 20:55 Pulse Ox 100 11/17/17 20:55 Intake & Output 11/16/17 11/17/17 11/17/17 23:59 11:59 23:59 Intake Total 3500 Output Total 200 Balance 3300 Weight 54.431 kg Intake: IV 3000 NOVOLIN R VIAL *For 1000 IVPUSH or IV DRIP Only* 100 UNITS In Normal Saline - 99 ml @ 0.1 UNITS/KG/HR 5.44 mls/hr IVPB TITR [facility] Rx#: [id number] Normal Saline - 1,000 ml 1000 @ 1000 mls/hr IV ASDIR [facility] Rx#:[id number] Normal Saline - 1,000 ml 1000 @ 1000 mls/hr IV ASDIR [facility] Rx#:[id number] IVPB 500 Output: Urine 200 [place] 200 Other: Height 5 ft 4 in Body Mass Index (BMI) 20.5 Eyes: Yes: PERRL at 4mm HENT: Yes: poor dentition, NCAT Cardiovascular: Yes: tachy and Rhythm, S1, S2 Respiratory: Yes: CTA Bilaterally, Tachypnea Gastrointestinal: Yes: Normal Bowel Sounds, Soft Edema: None Neurological: Yes: agitated Labs: CBCD WBC 23.4 K/mm3 (4.0-10.0) H 11/17/17 20:55 RBC 3.88 M/mm3 (3.60-5.2) 11/17/17 20:55 Hgb 11.2 GM/dL (10.7-15.3) 11/17/17 20:55 Hct 38.1 % (32.4-45.2) 11/17/17 20:55 MCV 98.1 fl (80-96) H D 11/17/17 20:55 MCHC 29.4 g/dl (32.0-36.0) L 11/17/17 20:55 RDW 16.7 % (11.6-15.6) H 11/17/17 20:55 Plt Count 410 K/MM3 (134-434) 11/17/17 20:55 MPV 8.4 fl (7.5-11.1) D 11/17/17 20:55 CMP Sodium 146 mmol/L (136-145) H 11/17/17 20:55 Potassium 3.3 mmol/L (3.5-5.1) L 11/17/17 20:55 Chloride 119 mmol/L (98-107) H 11/17/17 20:55 Carbon Dioxide 7 mmol/L (21-32) L 11/17/17 20:55 Anion Gap 20 (8-16) H 11/17/17 20:55 BUN 30 mg/dL (7-18) H 11/17/17 20:55 Creatinine 2.3 mg/dL (0.55-1.02) H 11/17/17 20:55 Creat Clearance w eGFR 22.63 (>60) 11/17/17 20:55 Random Glucose 741 mg/dL (74-106) H* 11/17/17 20:55 Calcium 8.3 mg/dL (8.5-10.1) L 11/17/17 20:55 Total Bilirubin 0.4 mg/dL (0.2-1.0) 11/17/17 20:55 AST 69 U/L (15-37) H 11/17/17 20:55 ALT 29 U/L (12-78) 11/17/17 20:55 Alkaline Phosphatase 95 U/L (45-117) 11/17/17 20:55 Total Protein 5.9 g/dl (6.4-8.2) L 11/17/17 20:55 Albumin 3.0 g/dl (3.4-5.0) L 11/17/17 20:55 CARDIAC ENZYMES Creatine Kinase 107 IU/L (26-192) 11/17/17 21:00 Troponin I < 0.02 ng/ml (0.00-0.05) 11/17/17 21:00 Imaging - Results X-ray: Image Reviewed, no focal infiltrate EKG: ST without ectopy or acute ST changes, QRS wnl. Assessment/Plan IDDM now with recurrent DKA Lactic acidosis AGMA in the setting of above GIANCARLO likely pre renal azotemia Leukocytosis possibly reactive AMS in the setting of DKA -cont insulin drip --if BG doesnt fall by 50-70 mg/dl in first hr double insulin infusion until BG drops by 50-70 mg/dl --goal B-200mg/dl until AG closes --if BG fall <70 mg/dl hold insulin x15m and bolus D50 IVP --restart insulin at half prior dose and notify provider -cont IV fluids --add D5 once BG reaches 250 mg/dl -potassium replacement --K> 5.5mEq/l no replacement --K 4-5 mEq/l add KCl 20 mEq to each liter of IVF --K 3.5-3.9 mEq/l add KCL 20-40 mEq to each liter of IVF --K 3.1-3.4 mEq/l add KCL 40-60 mEq to each liter of IVF --K <3 mEq/l add KCL 40-80 mEq to each liter of IVF (call provider) -BMP q4hrs until AG closes -NPO , closely monitor for airway compromise. -trend lactate until down trending. -f/u cultures, cont current abx, will d/c if globally improves and no localization -CT head and possible LP if mental status does not continue to improve, currently better than in ED -Heparin SubQ PPX Hilario Powell ACNP [id number] Critical Care Total Critical Care Time (in minutes): 35 Critical Care Statement: The care of this patient involved high complexity decision making to prevent further life threatening deterioration of the patient 's condition and/or to evaluate & treat vital organ system(s) failure or risk of failure. Problem List - Problem (1) Diabetes mellitus, insulin dependent (IDDM), uncontrolled Code(s): E10.65 - TYPE 1 DIABETES MELLITUS WITH HYPERGLYCEMIA Qualifiers: Diabetes mellitus complication status: with ketoacidosis
[2017-11-17] MEDS: HEPARIN NA (PORCINE) 5,000 UNITS/ML 1ML VIAL SQ SCH (23:07)
[2017-11-17] MEDS ORDERED: ONDANSETRON 4 MG/2 ML VIAL IVPUSH ONE (23:13)
[2017-11-17] MEDS ORDERED: PANTOPRAZOLE SODIUM 40 MG VIAL IVPUSH ONE (23:13)
[2017-11-17] MEDS ORDERED: ONDANSETRON 4 MG/2 ML VIAL ONE (23:21)
[2017-11-17] MEDS ORDERED: PANTOPRAZOLE SODIUM 40 MG VIAL ONE (23:21)
[2017-11-18] MEDS: ONDANSETRON 4 MG/2 ML VIAL IVPUSH PRN ×3 (01:30→21:00)
[2017-11-18] MEDS ORDERED: INSULIN REGULAR 100 UNITS in SODIUM CHLORIDE 99 ML IVPB SCH (01:35)
[2017-11-18] MEDS ORDERED: D5-NS + 20 MEQ KCL - 20 MEQ/1,000 ML INFUS.BAG IV SCH ×2 (01:45→07:19)
[2017-11-18 02:06] LABS: ARTERIAL BLD GAS O2 SATURATION 94.2 % (90-98.9); ARTERIAL BLOOD GAS PO2 61.5 mmHg (80-100); ARTERIAL BLOOD GAS pH 7.33 (7.35-7.45)
[2017-11-18 02:09] LABS: ARTERIAL BLOOD GAS PCO2 18.1 mmHg (35-45)
[2017-11-18 02:10] LABS: ALLENS TEST POSITIVE; ARTERIAL BLOOD GAS BASE EXCESS -15.1 meq/l (-2-2)
[2017-11-18] MEDS ORDERED: PIPERACILLIN/TAZOB 3.375 GM 3.375 GM in DEXTROSE 5%-WATER - 50 ML IVPB ONE (05:00)
[2017-11-18] MEDS ORDERED: PIPERACILLIN/TAZOB 3.375 GM 3.375 GM in DEXTROSE 5%-WATER - 50 ML IVPB SCH (05:00)
[2017-11-18] MEDS ORDERED: AMPICILLIN - 2 GM in SODIUM CHLORIDE 100 ML IVPB ONE (05:15)
[2017-11-18] MEDS ORDERED: CEFTRIAXONE 2 GM in DEXTROSE 5%-WATER 100 ML IVPB ONE (05:16)
[2017-11-18] MEDS ORDERED: ACYCLOVIR INJECTION 1,000 MG in DEXTROSE 5%-WATER - 100 ML IVPB ONE ×2 (05:16→18:28)
[2017-11-18] MEDS ORDERED: DEXAMETHASONE SOD PHOSPHATE 10 MG/1 ML VIAL IVPUSH SCH (05:30)
[2017-11-18] MEDS ORDERED: ACYCLOVIR INJECTION 1,000 MG in DEXTROSE 5%-WATER - 250 ML IVPB ONE (05:30)
[2017-11-18 05:46] LABS: BASO % 0.1 % (0-2.0); EOS % 0.1 % (0-4.5); HEMATOCRIT 32.8 % (32.4-45.2); HEMOGLOBIN 10.7 GM/dL (10.7-15.3); LYMPH % 9.4 % (8-40); MCH 28.9 pg (25.7-33.7); MCHC 32.6 g/dl (32.0-36.0); MEAN CELL VOLUME 88.5 fl (80-96); MEAN PLT VOLUME 8.1 fl (7.5-11.1); MONO % 5.4 % (3.8-10.2); PLATELET COUNT 339 K/MM3 (134-434); RDW 15.4 % (11.6-15.6); WHITE BLOOD COUNT 17.9 K/mm3 (4.0-10.0)
[2017-11-18] MEDS ORDERED: PIPERACILLIN/TAZOBACTAM 3.375 GM VIAL IVPB ONE (06:08)
[2017-11-18] MEDS ORDERED: DEXTROSE 5%-WATER - 50 ML IVPB ONE (06:08)
[2017-11-18 06:10] LABS: ALBUMIN 2.8 g/dl (3.4-5.0); ANION GAP 10 (8-16); BILIRUBIN,TOTAL 0.2 mg/dL (0.2-1.0); BLOOD UREA NITROGEN 27 mg/dL (7-18); CALCIUM 8.8 mg/dL (8.5-10.1); CHLORIDE 129 mmol/L (98-107); CO2 18 mmol/L (21-32); CREATININE 1.6 mg/dL (0.55-1.02); GLUCOSE,RANDOM 90 mg/dL (74-106); MAGNESIUM 2.1 mg/dL (1.8-2.4); POTASSIUM 3.1 mmol/L (3.5-5.1); SGOT/AST 73 U/L (15-37); SGPT/ALT 27 U/L (12-78); SODIUM 157 mmol/L (136-145); TOT PROT 5.5 g/dl (6.4-8.2)
[2017-11-18] MEDS ORDERED: DEXTROSE 5%-WATER 100 ML IVPB ONE (06:12)
[2017-11-18 06:15] LABS: ALK PHOS 83 U/L (45-117)
--- NOTE | 2017-11-18 07:15 | PN ---
Progress Note (short form) - Note Progress Note: S: -- Found by neighbor unresponsive. DKA. Continues to have AMS. -- Moaning, respond to voice, not following commands -- Transition to SQ O: Vital Signs Period Temp Pulse Resp BP Sys/Rapp Pulse Ox Last 24 Hr 95.0 F-98.1 F 95-108 28-33 65-143/40-71 93-100 Tele - No events GEN: Eyes closed, moaning, respond to voice, not following commands HEENT: PERRL, unable to assess EOM CV: S1, S2, strong pulse, no murmur LUNG: CTAB ABD: Soft, NT, ND MSK: No edema, no erythema NEURO: Difficult to assess. Respond to voice. Known L hemiplegia. No nuchal ridigity Active Medications Heparin Sodium (Porcine) (Heparin -) 5,000 unit SQ BID [facility] Last Admin: 11/17/17 23:07 Dose: 5,000 unit Dextrose/Sodium Chloride (Dextrose 5%-Normal Saline+20 Meq Kcl -) 20 meq in 1, 000 mls @ 75 mls/hr IV [facility] Last Admin: 11/18/17 02:27 Dose: 75 mls/hr Insulin Human Regular 100 (units/ Sodium Chloride) 100 mls @ 4 mls/hr IVPB TITR [facility]; 4 UNITS/HR PRN Reason: Protocol Stop: 11/18/17 09:00 Last Admin: 11/18/17 01:30 Dose: 4 units/hr, 4 mls/hr Piperacillin Sod/Tazobactam (Sod 3.375 gm/ Dextrose) 50 mls @ 100 mls/hr IVPB Q12H [facility] PRN Reason: Protocol Acyclovir 1,000 mg/ Dextrose 270 mls @ 100 mls/hr IVPB ONCE ONE Stop: 11/18/17 08:11 Last Admin: 11/18/17 06:06 Dose: 100 mls/hr Potassium Phosphate 40 mm/ (Sodium Chloride) 263.3333 mls @ 62.5 mls/hr IVPB ONCE ONE Stop: 11/18/17 10:55 Insulin Aspart (Novolog Vial Sliding Scale -) 0 vial SQ Q4H [facility] PRN Reason: Protocol Insulin Detemir (Levemir Vial) 10 units SQ ONCE ONE Stop: 11/18/17 06:55 Ondansetron HCl (Zofran Injection) 4 mg IVPUSH Q4H PRN PRN Reason: NAUSEA AND/OR VOMITING Last Admin: 11/18/17 01:30 Dose: 4 mg A/P: 47 yo woman well known to this service for frequent admissions for DKA, recent CVA (left sided hemiparesis), found unresponsive by neighbor, being treated for DKA. # DKA -- Numerous admissions. Likely from poor compliance. Sugars controlled on insulin drip. Gap closed. Will transition from IV to SQ. TDD insulin about 20. Will give 10u this AM and turn drip off in 2 hrs. On D51/2NS w/ 20meq K. Still needs more K, will give 30meq more IV. # AMS -- Thought to be metabolic encephalopathy 2/2 DKA vs opiate ingestion, however mental status still remains after glucose was controlled. Last night Head CT obtained, no new changes. Covered for meningitis w/ high dose Rocephin, Acyclovir, Ampicillin. Given decardron. ID now on board. # Lactic Acidosis -- Could be from dehydration vs infectious process. Will repeat this AM. # GIANCARLO -- Likely prerenal 2/2 dehydration, improving w/ fluids # Leukocytosis -- Likely reactive vs infectious process. # Hypokalemia -- Adding IV to fluids # HypoPO4 -- Started off hyperPO4, after fluids now hypo. Replaced w/ IV # FEN/PPx -- D51/2ns w/ 20meq K at 100cc/hr; NPO; HSQ bid # Dispo -- Keep in ICU. Sanam Mix MD - pGY1 ICU Resident
[2017-11-18] MEDS ORDERED: INSULIN (LEVEMIR) 100 UNITS/ML UNITS SQ ONE ×2 (08:15→23:02)
[2017-11-18] MEDS: D5-1/2NS+20 MEQ KCL - 20 MEQ/1,000 ML INFUS.BAG IV SCH ×2 (08:21→18:20)
[2017-11-18] MEDS ORDERED: KCL 10 MEQ IVPB 10 MEQ/100 ML INFUS.BAG IVPB SCH (08:30)
[2017-11-18] MEDS ORDERED: POTASSIUM PHOSPHATE 40 MM in SODIUM CHLORIDE 500 ML IVPB ONE (08:30)
[2017-11-18 11:38] LABS: ANION GAP 14 (8-16); BLOOD UREA NITROGEN 24 mg/dL (7-18); CALCIUM 8.9 mg/dL (8.5-10.1); CHLORIDE 126 mmol/L (98-107); CO2 16 mmol/L (21-32); GLUCOSE,RANDOM 165 mg/dL (74-106); POTASSIUM 3.3 mmol/L (3.5-5.1); SODIUM 156 mmol/L (136-145)
[2017-11-18 11:41] LABS: CREATININE 1.6 mg/dL (0.55-1.02)
[2017-11-18] MEDS ORDERED: PT OWN MED DRAWER 7, Y5N ONE (12:24)
[2017-11-18] MEDS: HEPARIN NA (PORCINE) 5,000 UNITS/ML 1ML VIAL SQ SCH ×2 (12:27→22:04)
--- NOTE | 2017-11-18 15:11 | PN ---
Teaching Attending Note Name of Resident: Sanam Mix ATTENDING PHYSICIAN STATEMENT I saw and evaluated the patient. I reviewed the resident's note and discussed the case with the resident. I agree with the resident's findings and plan as documented. SUBJECTIVE: Patient seen and examined in the ICU. Lethargic but more lucid. Can tell us her name and where she is. No CP or SOB. Denies GOMEZ. Reports abdominal discomfort (chronic). Intake & Output 11/15/17 11/16/17 11/17/17 11/18/17 23:59 23:59 23:59 23:59 Intake Total 3500 1075 Output Total 200 990 Balance 3300 85 Weight 120 lb 110 lb 3.698 oz Last Vital Signs Temp Pulse Resp BP Pulse Ox 98.3 F 95 H 26 H 145/79 97 11/18/17 14:03 11/18/17 14:03 11/18/17 14:03 11/18/17 14:03 11/18/17 09:00 Active Medications Heparin Sodium (Porcine) (Heparin -) 5,000 unit SQ BID [facility] Last Admin: 11/18/17 12:27 Dose: 5,000 unit Piperacillin Sod/Tazobactam (Sod 3.375 gm/ Dextrose) 50 mls @ 100 mls/hr IVPB Q12H [facility] PRN Reason: Protocol Potassium Phosphate 40 mm/ (Sodium Chloride) 513.3333 mls @ 64.167 mls/hr IVPB ONCE ONE Stop: 11/18/17 16:29 Last Admin: 11/18/17 12:27 Dose: 64.167 mls/hr Potassium Chloride/Dextrose/Sod Cl (D5-1/2ns+20 Meq Kcl -) 20 meq in 1,000 mls @ 100 mls/hr IV ASDIR [facility] Last Admin: 11/18/17 08:21 Dose: 100 mls/hr Insulin Aspart (Novolog Vial Sliding Scale -) 1 vial SQ Q4HWA [facility] PRN Reason: Protocol Ondansetron HCl (Zofran Injection) 4 mg IVPUSH Q4H PRN PRN Reason: NAUSEA AND/OR VOMITING Last Admin: 11/18/17 09:02 Dose: 4 mg Eyes: Yes: Pupils equal and reactive HENT: Yes: poor dentition, dry membranes Cardiovascular: Yes: S1, S2 Respiratory: Yes: CTA Bilaterally Gastrointestinal: Yes: Normal Bowel Sounds, Soft Edema: None Neurological: Yes: Lethargic, non-focal Labs: Laboratory Results - last 24 hr 11/17/17 11/17/17 11/17/17 15:51 16:30 16:30 WBC 26.1 H D RBC 3.84 Hgb 11.1 Hct 42.5 D MCV 110.6 H D MCH 28.8 MCHC 26.1 L RDW 17.5 H D Plt Count 472 H D MPV 9.7 D Neutrophils % No Result Required. Neutrophils % (Manual) 68.0 D Band Neutrophils % 14.0 Lymphocytes % No Result Required. Lymphocytes % (Manual) 12.0 D Monocytes % Monocytes % (Manual) 3 L Eosinophils % Eosinophils % (Manual) 0.0 Basophils % Basophils % (Manual) 0.0 Nucleated RBC % 0 Metamyelocytes 1 Differential Comment Hypochromia 1+ Macrocytosis 1+ PT with INR 11.10 INR 0.98 PTT (Actin FS) 22.6 L Anticoagulation Therapy Puncture Site ABG pH ABG pCO2 at Pt Temp ABG pO2 at Pt Temp ABG HCO3 ABG O2 Sat (Measured) ABG O2 Content ABG Base Excess Atul Test VBG pH POC VBG pCO2 POC VBG pO2 Mixed VBG HCO3 O2 Delivery Device Oxygen Flow Rate Vent Mode Vent Rate Mechanical Rate Pressure Support Vent Sodium Potassium Chloride Carbon Dioxide Anion Gap BUN Creatinine Creat Clearance w eGFR POC Glucometer > 400 Random Glucose Lactic Acid Calcium Phosphorus Magnesium Total Bilirubin AST ALT Alkaline Phosphatase Creatine Kinase Troponin I Total Protein Albumin Lipase Serum , Qual Urine Color Urine Appearance Urine pH Ur Specific [place] Urine Protein Urine Glucose (UA) Urine Ketones Urine Blood Urine Nitrite Urine Bilirubin Urine Urobilinogen Ur Leukocyte Esterase Urine WBC (Auto) Urine RBC (Auto) Ur Epithelial Cells Urine Bacteria Urine Mucus Opiates Screen Methadone Screen Barbiturate Screen Phencyclidine Screen Ur Amphetamines Screen MDMA (Ecstasy) Screen Benzodiazepines Screen Cocaine Screen U Marijuana (THC) Screen Acetone, Qual 11/17/17 11/17/17 11/17/17 16:30 16:30 16:30 WBC RBC Hgb Hct MCV MCH MCHC RDW Plt Count MPV Neutrophils % Neutrophils % (Manual) Band Neutrophils % Lymphocytes % Lymphocytes % (Manual) Monocytes % Monocytes % (Manual) Eosinophils % Eosinophils % (Manual) Basophils % Basophils % (Manual) Nucleated RBC % Metamyelocytes Differential Comment Hypochromia Macrocytosis PT with INR INR PTT (Actin FS) Anticoagulation Therapy Puncture Site ABG pH ABG pCO2 at Pt Temp ABG pO2 at Pt Temp ABG HCO3 ABG O2 Sat (Measured) ABG O2 Content ABG Base Excess Atul Test VBG pH 6.86 L* POC VBG pCO2 20.4 L D POC VBG pO2 142.0 H Mixed VBG HCO3 3.5 L* O2 Delivery Device Oxygen Flow Rate Vent Mode Vent Rate Mechanical Rate Pressure Support Vent Sodium 136 Potassium 6.8 H* Chloride 102 Carbon Dioxide 5 L Anion Gap 29 H BUN 34 H Creatinine 2.3 H Creat Clearance w eGFR 22.63 POC Glucometer Random Glucose 1375 H* Lactic Acid Calcium 8.2 L Phosphorus 12.4 H* Magnesium 3.1 H Total Bilirubin 0.4 AST 59 H ALT 29 Alkaline Phosphatase 110 Creatine Kinase 82 Troponin I < 0.02 Total Protein 6.2 L Albumin 3.2 L Lipase 117 Serum , Qual Negative Urine Color Urine Appearance Urine pH Ur Specific [place] Urine Protein Urine Glucose (UA) Urine Ketones Urine Blood Urine Nitrite Urine Bilirubin Urine Urobilinogen Ur Leukocyte Esterase Urine WBC (Auto) Urine RBC (Auto) Ur Epithelial Cells Urine Bacteria Urine Mucus Opiates Screen Methadone Screen Barbiturate Screen Phencyclidine Screen Ur Amphetamines Screen MDMA (Ecstasy) Screen Benzodiazepines Screen Cocaine Screen U Marijuana (THC) Screen Acetone, Qual Positive large 3+ H 11/17/17 11/17/17 11/17/17 16:35 17:00 17:00 WBC RBC Hgb Hct MCV MCH MCHC RDW Plt Count MPV Neutrophils % Neutrophils % (Manual) Band Neutrophils % Lymphocytes % Lymphocytes % (Manual) Monocytes % Monocytes % (Manual) Eosinophils % Eosinophils % (Manual) Basophils % Basophils % (Manual) Nucleated RBC % Metamyelocytes Differential Comment Hypochromia Macrocytosis PT with INR INR PTT (Actin FS) Anticoagulation Therapy Puncture Site ABG pH ABG pCO2 at Pt Temp ABG pO2 at Pt Temp ABG HCO3 ABG O2 Sat (Measured) ABG O2 Content ABG Base Excess Atul Test VBG pH POC VBG pCO2 POC VBG pO2 Mixed VBG HCO3 O2 Delivery Device Oxygen Flow Rate Vent Mode Vent Rate Mechanical Rate Pressure Support Vent Sodium Potassium Chloride Carbon Dioxide Anion Gap BUN Creatinine Creat Clearance w eGFR POC Glucometer Random Glucose Lactic Acid 5.8 H* Calcium Phosphorus Magnesium Total Bilirubin AST ALT Alkaline Phosphatase Creatine Kinase Troponin I Total Protein Albumin Lipase Serum , Qual Urine Color Straw Urine Appearance Clear Urine pH 5.0 D Ur Specific [place] 1.020 Urine Protein 1+ H Urine Glucose (UA) 3+ H Urine Ketones 2+ H Urine Blood Negative Urine Nitrite Negative Urine Bilirubin Negative Urine Urobilinogen Negative Ur Leukocyte Esterase Negative Urine WBC (Auto) 1 Urine RBC (Auto) <1 Ur Epithelial Cells Rare Urine Bacteria Rare Urine Mucus Rare Opiates Screen Positive Methadone Screen Negative Barbiturate Screen Negative Phencyclidine Screen Negative Ur Amphetamines Screen Negative MDMA (Ecstasy) Screen Negative Benzodiazepines Screen Negative Cocaine Screen Negative U Marijuana (THC) Screen Negative Acetone, Qual 11/17/17 11/17/17 11/17/17 19:06 20:15 20:50 WBC RBC Hgb Hct MCV MCH MCHC RDW Plt Count MPV Neutrophils % Neutrophils % (Manual) Band Neutrophils % Lymphocytes % Lymphocytes % (Manual) Monocytes % Monocytes % (Manual) Eosinophils % Eosinophils % (Manual) Basophils % Basophils % (Manual) Nucleated RBC % Metamyelocytes Differential Comment Hypochromia Macrocytosis PT with INR INR PTT (Actin FS) Anticoagulation Therapy Puncture Site ABG pH ABG pCO2 at Pt Temp ABG pO2 at Pt Temp ABG HCO3 ABG O2 Sat (Measured) ABG O2 Content ABG Base Excess Atul Test VBG pH 7.00 L* D POC VBG pCO2 24.1 L POC VBG pO2 57.8 H D Mixed VBG HCO3 5.6 L* O2 Delivery Device Oxygen Flow Rate Vent Mode Vent Rate Mechanical Rate Pressure Support Vent Sodium 144 Potassium 3.6 Chloride 116 H Carbon Dioxide 8 L Anion Gap 20 H BUN 32 H Creatinine 2.3 H Creat Clearance w eGFR POC Glucometer > 400 Random Glucose 890 H* Lactic Acid Calcium 8.2 L Phosphorus Magnesium Total Bilirubin AST ALT Alkaline Phosphatase Creatine Kinase Troponin I Total Protein Albumin Lipase Serum , Qual Urine Color Urine Appearance Urine pH Ur Specific [place] Urine Protein Urine Glucose (UA) Urine Ketones Urine Blood Urine Nitrite Urine Bilirubin Urine Urobilinogen Ur Leukocyte Esterase Urine WBC (Auto) Urine RBC (Auto) Ur Epithelial Cells Urine Bacteria Urine Mucus Opiates Screen Methadone Screen Barbiturate Screen Phencyclidine Screen Ur Amphetamines Screen MDMA (Ecstasy) Screen Benzodiazepines Screen Cocaine Screen U Marijuana (THC) Screen Acetone, Qual 05/11/17/17 11/17/17 20:55 20:55 20:55 WBC 23.4 H RBC 3.88 Hgb 11.2 Hct 38.1 MCV 98.1 H D MCH 28.8 MCHC 29.4 L RDW 16.7 H Plt Count 410 MPV 8.4 D Neutrophils % 79.6 D Neutrophils % (Manual) No Result Required. Band Neutrophils % Lymphocytes % 15.3 D Lymphocytes % (Manual) Monocytes % 4.6 Monocytes % (Manual) Eosinophils % 0.2 D Eosinophils % (Manual) Basophils % 0.3 Basophils % (Manual) Nucleated RBC % 0 Metamyelocytes Differential Comment Hypochromia Macrocytosis PT with INR INR PTT (Actin FS) Anticoagulation Therapy Puncture Site ABG pH ABG pCO2 at Pt Temp ABG pO2 at Pt Temp ABG HCO3 ABG O2 Sat (Measured) ABG O2 Content ABG Base Excess Atul Test VBG pH POC VBG pCO2 POC VBG pO2 Mixed VBG HCO3 O2 Delivery Device Oxygen Flow Rate Vent Mode Vent Rate Mechanical Rate Pressure Support Vent Sodium 146 H Potassium 3.3 L Chloride 119 H Carbon Dioxide 7 L Anion Gap 20 H BUN 30 H Creatinine 2.3 H Creat Clearance w eGFR 22.63 POC Glucometer Random Glucose 741 H* Lactic Acid 6.6 H* Calcium 8.3 L Phosphorus Magnesium Total Bilirubin 0.4 AST 69 H ALT 29 Alkaline Phosphatase 95 Creatine Kinase Troponin I Total Protein 5.9 L Albumin 3.0 L Lipase Serum , Qual Urine Color Urine Appearance Urine pH Ur Specific [place] Urine Protein Urine Glucose (UA) Urine Ketones Urine Blood Urine Nitrite Urine Bilirubin Urine Urobilinogen Ur Leukocyte Esterase Urine WBC (Auto) Urine RBC (Auto) Ur Epithelial Cells Urine Bacteria Urine Mucus Opiates Screen Methadone Screen Barbiturate Screen Phencyclidine Screen Ur Amphetamines Screen MDMA (Ecstasy) Screen Benzodiazepines Screen Cocaine Screen U Marijuana (THC) Screen Acetone, Qual 11/17/17 11/18/17 11/18/17 21:00 01:50 05:00 WBC 17.9 H RBC 3.70 Hgb 10.7 Hct 32.8 MCV 88.5 D MCH 28.9 MCHC 32.6 RDW 15.4 Plt Count 339 MPV 8.1 Neutrophils % 85.0 H Neutrophils % (Manual) Band Neutrophils % Lymphocytes % 9.4 D Lymphocytes % (Manual) Monocytes % 5.4 Monocytes % (Manual) Eosinophils % 0.1 Eosinophils % (Manual) Basophils % 0.1 Basophils % (Manual) Nucleated RBC % 0 Metamyelocytes Differential Comment Hypochromia Macrocytosis PT with INR INR PTT (Actin FS) Anticoagulation Therapy No Result Required. Puncture Site Right radial ABG pH 7.33 L ABG pCO2 at Pt Temp 18.1 L* D ABG pO2 at Pt Temp 61.5 L D ABG HCO3 9.2 L* ABG O2 Sat (Measured) 94.2 ABG O2 Content 14.4 L ABG Base Excess -15.1 L* Atul Test Positive VBG pH POC VBG pCO2 POC VBG pO2 Mixed VBG HCO3 O2 Delivery Device No Result Required. Oxygen Flow Rate No Vent Mode No Result Required. Vent Rate No Result Required. Mechanical Rate No Result Required. Pressure Support Vent No Result Required. Sodium Potassium Chloride Carbon Dioxide Anion Gap BUN Creatinine Creat Clearance w eGFR POC Glucometer Random Glucose Lactic Acid Calcium Phosphorus Magnesium Total Bilirubin AST ALT Alkaline Phosphatase Creatine Kinase 107 Troponin I < 0.02 Total Protein Albumin Lipase Serum , Qual Urine Color Urine Appearance Urine pH Ur Specific [place] Urine Protein Urine Glucose (UA) Urine Ketones Urine Blood Urine Nitrite Urine Bilirubin Urine Urobilinogen Ur Leukocyte Esterase Urine WBC (Auto) Urine RBC (Auto) Ur Epithelial Cells Urine Bacteria Urine Mucus Opiates Screen Methadone Screen Barbiturate Screen Phencyclidine Screen Ur Amphetamines Screen MDMA (Ecstasy) Screen Benzodiazepines Screen Cocaine Screen U Marijuana (THC) Screen Acetone, Qual 11/18/17 11/18/17 11/18/17 05:00 07:55 10:50 WBC RBC Hgb Hct MCV MCH MCHC RDW Plt Count MPV Neutrophils % Neutrophils % (Manual) Band Neutrophils % Lymphocytes % Lymphocytes % (Manual) Monocytes % Monocytes % (Manual) Eosinophils % Eosinophils % (Manual) Basophils % Basophils % (Manual) Nucleated RBC % Metamyelocytes Differential Comment Hypochromia Macrocytosis PT with INR INR PTT (Actin FS) Anticoagulation Therapy Puncture Site ABG pH ABG pCO2 at Pt Temp ABG pO2 at Pt Temp ABG HCO3 ABG O2 Sat (Measured) ABG O2 Content ABG Base Excess Atul Test VBG pH POC VBG pCO2 POC VBG pO2 Mixed VBG HCO3 O2 Delivery Device Oxygen Flow Rate Vent Mode Vent Rate Mechanical Rate Pressure Support Vent Sodium 157 H 156 H Potassium 3.1 L 3.3 L Chloride 129 H 126 H Carbon Dioxide 18 L 16 L Anion Gap 10 14 BUN 27 H 24 H Creatinine 1.6 H 1.6 H Creat Clearance w eGFR 34.40 POC Glucometer Random Glucose 90 165 H Lactic Acid 6.0 H* Calcium 8.8 8.9 Phosphorus 1.0 L* Magnesium 2.1 Total Bilirubin 0.2 D AST 73 H ALT 27 Alkaline Phosphatase 83 Creatine Kinase Troponin I Total Protein 5.5 L Albumin 2.8 L Lipase Serum , Qual Urine Color Urine Appearance Urine pH Ur Specific [place] Urine Protein Urine Glucose (UA) Urine Ketones Urine Blood Urine Nitrite Urine Bilirubin Urine Urobilinogen Ur Leukocyte Esterase Urine WBC (Auto) Urine RBC (Auto) Ur Epithelial Cells Urine Bacteria Urine Mucus Opiates Screen Methadone Screen Barbiturate Screen Phencyclidine Screen Ur Amphetamines Screen MDMA (Ecstasy) Screen Benzodiazepines Screen Cocaine Screen U Marijuana (THC) Screen Acetone, Qual Problem List - Problem (1) Diabetes mellitus, insulin dependent (IDDM), uncontrolled Code(s): E10.65 - TYPE 1 DIABETES MELLITUS WITH HYPERGLYCEMIA Qualifiers: Diabetes mellitus complication status: with ketoacidosis Assessment/Plan IDDM now with recurrent DKA Lactic acidosis AGMA in the setting of above GIANCARLO likely pre renal azotemia Leukocytosis possibly reactive Resolving AMS in the setting of DKA Glycemic control O2 as needed At this point low clinical suspicion of meningitis: would D/C ABX (noted ID was called) Follow cultures VTE prophylaxis
[2017-11-18] MEDS: INSULIN SLIDING SCALE (NOVOLOG) 1 VIAL SQ SCH ×3 (15:37→22:03)
--- NOTE | 2017-11-18 15:56 | PN ---
Progress Note, Physician History of Present Illness: awake - Current Medication List Current Medications: Active Medications Heparin Sodium (Porcine) (Heparin -) 5,000 unit SQ BID [facility] Last Admin: 11/18/17 12:27 Dose: 5,000 unit Piperacillin Sod/Tazobactam (Sod 3.375 gm/ Dextrose) 50 mls @ 100 mls/hr IVPB Q12H [facility] PRN Reason: Protocol Potassium Phosphate 40 mm/ (Sodium Chloride) 513.3333 mls @ 64.167 mls/hr IVPB ONCE ONE Stop: 11/18/17 16:29 Last Admin: 11/18/17 12:27 Dose: 64.167 mls/hr Potassium Chloride/Dextrose/Sod Cl (D5-1/2ns+20 Meq Kcl -) 20 meq in 1,000 mls @ 100 mls/hr IV ASDIR [facility] Last Admin: 11/18/17 08:21 Dose: 100 mls/hr Insulin Aspart (Novolog Vial Sliding Scale -) 1 vial SQ Q4HWA [facility] PRN Reason: Protocol Last Admin: 11/18/17 15:37 Dose: Not Given Insulin Detemir (Levemir Vial) 10 units SQ HS [facility] Ondansetron HCl (Zofran Injection) 4 mg IVPUSH Q4H PRN PRN Reason: NAUSEA AND/OR VOMITING Last Admin: 11/18/17 09:02 Dose: 4 mg - Objective Vital Signs: Vital Signs Temperature 98.3 F 11/18/17 14:03 Pulse Rate 95 H 11/18/17 14:03 Respiratory Rate 26 H 11/18/17 14:03 Blood Pressure 145/79 11/18/17 14:03 O2 Sat by Pulse Oximetry (%) 97 11/18/17 09:00 HENT: Yes: Atraumatic Neck: Yes: Supple Cardiovascular: Yes: Regular Rate and Rhythm Respiratory: Yes: Rhonchi Gastrointestinal: Yes: Normal Bowel Sounds Extremities: Yes: WNL Neurological: Yes: Alert, Oriented Labs: CBC, BMP 11/18/17 05:00 11/18/17 10:50 INR, PTT INR 0.98 (0.82-1.09) 11/17/17 16:30 Problem List - Problems (1) Diabetes mellitus, insulin dependent (IDDM), uncontrolled Assessment/Plan: on insulin and bgms stable Code(s): E10.65 - TYPE 1 DIABETES MELLITUS WITH HYPERGLYCEMIA Qualifiers: Diabetes mellitus complication status: with ketoacidosis (2) Diabetic keto-acidosis Assessment/Plan: came to hosp few times in the past for same fu labs ivf, iv insulin replace K when needed Code(s): E13.10 - OTH DIABETES MELLITUS WITH KETOACIDOSIS WITHOUT COMA (3) Leukocytosis Assessment/Plan: cxs sent cxr no infilterate on emperic abx wbc count improving Code(s): D72.829 - ELEVATED WHITE BLOOD CELL COUNT, UNSPECIFIED (4) Septic shock Assessment/Plan: recovering fu cxs Code(s): A41.9 - SEPSIS, UNSPECIFIED ORGANISM; R65.21 - SEVERE SEPSIS WITH SEPTIC SHOCK
--- NOTE | 2017-11-18 15:58 | CON.ID ---
Consult Consult Specialty:: infectious diseases Reason for Consultation:: ams ,leukocytosis - History of Present Illness Chief Complaint: ams History of Present Illness: 47 year old female with history of IDDM with gastroparesis, CVA, brought in by EMS for altered mental status. Per EMS, the patient's neighbor had been trying to reach the patient but was not able to contact her. The neighbor found the patient lying on the floor of her home minimally responsive. Patient is unable to provide remainder of history secondary to clinical condition. She has history of multiple ED visits for DKA. i have known this patient from previous admission patient was evaluated and admitted to the icu currently patient is much more awake and alert comfortable and no distress - History Source History Provided By: Patient, Medical Record Limitations to Obtaining History: Poor Historian - Past Medical History PUMPER BREWERY: Yes: CVA (right MCA), Migraine Gastrointestinal: Yes: Other (Gastroparesis) ...LMP: 04/14/13 Musculoskeletal: Yes: Chronic low back pain Endocrine: Yes: Diabetes Mellitus Additional Medical History: dka in the past - Past Surgical History Past Surgical History: Yes: Cholecystectomy - Alcohol/Substance Use Hx Alcohol Use: No History of Substance Use: reports: None - Smoking History Smoking history: Unknown if ever smoked Have you smoked in the past 12 months: No Aproximately how many cigarettes per day: 20 - Social History ADL: Independent History of Recent Travel: No Home Medications - Allergies Allergies/Adverse Reactions: Allergies Allergy/AdvReac Type Severity Reaction Status Date / Time No Known Allergies Allergy Verified 10/23/17 16:32 - Home Medications Home Medications: Ambulatory Orders Unobtainable 11/17/17 Family Disease History - Family Disease History Family Disease History: Heart Disease: Father (cad) Review of Systems - Review of Systems Constitutional: reports: No Symptoms Eyes: reports: No Symptoms HENT: reports: No Symptoms Neck: reports: No Symptoms Cardiovascular: reports: No Symptoms Respiratory: reports: No Symptoms Gastrointestinal: reports: No Symptoms Genitourinary: reports: No Symptoms Musculoskeletal: reports: No Symptoms Neurological: reports: Other (ams) Endocrine: reports: No Symptoms Hematology/Lymphatic: reports: No Symptoms Psychiatric: reports: No Symptoms Physical Exam Vital Signs: Vital Signs Temperature 98.3 F 11/18/17 14:03 Pulse Rate 95 H 11/18/17 14:03 Respiratory Rate 26 H 11/18/17 14:03 Blood Pressure 145/79 11/18/17 14:03 O2 Sat by Pulse Oximetry (%) 97 11/18/17 09:00 Constitutional: Yes: No Distress, Calm, Other Eyes: Yes: Conjunctiva Clear HENT: Yes: Atraumatic, Normocephalic Cardiovascular: Yes: Regular Rate and Rhythm Respiratory: Yes: Regular, CTA Bilaterally Gastrointestinal: Yes: Normal Bowel Sounds, Soft Musculoskeletal: Yes: WNL Extremities: Yes: WNL Neurological: Yes: Alert, Oriented Psychiatric: Yes: Alert, Oriented Labs: CBC, BMP 11/18/17 05:00 11/18/17 10:50 Imaging - Results Chest X-ray: Report Reviewed, Image Reviewed Cat Scan: Report Reviewed, Image Reviewed Assessment/Plan Problem List - Problem (1) Diabetes mellitus, insulin dependent (IDDM), uncontrolled Code(s): E10.65 - TYPE 1 DIABETES MELLITUS WITH HYPERGLYCEMIA Qualifiers: Diabetes mellitus complication status: with ketoacidosis Assessment/Plan IDDM now with recurrent DKA Lactic acidosis AGMA in the setting of above GIANCARLO likely pre renal azotemia Leukocytosis possibly reactive Resolving AMS in the setting of DKA i think patients leukocytosis and her condition is probably due to dka,patient has received couple of abx course plan continue current mgmt close monitoring monitor wbc rest continue current mgmt will not give abx at this time rest as per icu cc time 40 min
--- NOTE | 2017-11-18 16:20 | EKG ---
Test Reason : Blood Pressure : / mmHG Vent. Rate : 101 BPM Atrial Rate : 101 BPM P-R Int : 128 ms QRS Dur : 100 ms QT Int : 360 ms P-R-T Axes : 073 082 018 degrees QTc Int : 466 ms SINUS TACHYCARDIA POSSIBLE LEFT ATRIAL ENLARGEMENT BORDERLINE ECG WHEN COMPARED WITH ECG OF 24-OCT-2017 00:03, VENT. RATE HAS INCREASED BY 36 BPM T WAVE AMPLITUDE HAS INCREASED IN ANTEROLATERAL LEADS Confirmed by MD Lucien, Saravanan ([id number]) on 11/18/2017 4:19:32 PM Referred By: Confirmed By:Saravanan Mcgraw MD
[2017-11-18 18:28] LABS: BLOOD UREA NITROGEN 18 mg/dL (7-18); CALCIUM 8.2 mg/dL (8.5-10.1); CO2 20 mmol/L (21-32); CREATININE 1.1 mg/dL (0.55-1.02); GLUCOSE,RANDOM 151 mg/dL (74-106); PHOSPHOROUS 3.7 mg/dL (2.5-4.9)
[2017-11-18] MEDS ORDERED: D5-1/2NS+20 MEQ KCL - 20 MEQ/1,000 ML INFUS.BAG IV SCH (18:28)
[2017-11-18 18:54] LABS: ANION GAP 14 (8-16); CHLORIDE 121 mmol/L (98-107); POTASSIUM 3.5 mmol/L (3.5-5.1); SODIUM 155 mmol/L (136-145)
--- NOTE | 2017-11-18 19:07 | CONSULT ---
Consult Consult Specialty:: Endocrinology Referred by:: Dr Burns Reason for Consultation:: Uncontrolled blood sugar - History of Present Illness Chief Complaint: AMS History of Present Illness: This is a 47 y/o woman with T1DM with frequent admissions for DKA HLD, CVA ( left sided hemiparesis), gastroparesis last admitted in September for same admitted again after she was found down in home by neighbor during welfare check. Pt was with altered mental status, groaning and rolling around on floor. 911 was activated and pt was brought to ED here. In ED pt was hypothermic 95, tachy 100s, RR 30s, normotensive. BGL was >1200, ph 6.8, Hco3 8, lactate 6, WBC 26 (14% bands). She was given IV insulin, broad spectrum abx (vanc/zosyn) though there was no clear localizing source (Ua without wbc, cxr without infiltrate, lfts wnl, cxl pending) and a total of 4L of isotonic fluid. Pt was transferred to ICU for further care. In the ICU she was arousable to loud voice , intermittently answered simple questions was moving all ext equally. Her Resp rate had improved, BGL was 180, D5 1/2 NS with 20meq K started at 75, Repeat ABG w/ pH 7.3. Consult called for management of blood sugar. Pt currently off Insulin drip with CO2 of 20 and Normal A Gap. Is currently on D5 1/2NS with KCl and IV Khos, Got Levemir 10 units in the morning today. 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: CVA (right MCA), Migraine Gastrointestinal: Yes: Other (Gastroparesis) ...LMP: 04/14/13 Musculoskeletal: Yes: Chronic low back pain Endocrine: Yes: Diabetes Mellitus Additional Medical History: dka in the past - Past Surgical History Past Surgical History: Yes: Cholecystectomy - Alcohol/Substance Use Hx Alcohol Use: No History of Substance Use: reports: None - Smoking History Smoking history: Unknown if ever smoked Have you smoked in the past 12 months: No Aproximately how many cigarettes per day: 20 - Social History ADL: Independent History of Recent Travel: No Home Medications - Allergies Allergies/Adverse Reactions: Allergies Allergy/AdvReac Type Severity Reaction Status Date / Time No Known Allergies Allergy Verified 10/23/17 16:32 - Home Medications Home Medications: Ambulatory Orders Unobtainable [Unobtainable] 11/17/17 Family Disease History - Family Disease History Family Disease History: Heart Disease: Father (cad) Review of Systems Unable to obtain ROS, reason: AMS Physical Exam Vital Signs: Vital Signs Temperature 98.3 F 11/18/17 14:03 Pulse Rate 95 H 11/18/17 14:03 Respiratory Rate 26 H 11/18/17 14:03 Blood Pressure 145/79 11/18/17 14:03 O2 Sat by Pulse Oximetry (%) 97 11/18/17 09:00 Constitutional: Yes: No Distress Eyes: Yes: Conjunctiva Clear HENT: Yes: Atraumatic, Normocephalic Neck: Yes: Supple, Trachea Midline Cardiovascular: Yes: Regular Rate and Rhythm Respiratory: Yes: Regular, CTA Bilaterally Gastrointestinal: Yes: Normal Bowel Sounds, Soft Edema: No Neurological: Yes: Other (Groans to verbal stimuli) Labs: CBC, BMP 11/18/17 05:00 11/18/17 17:40 Problem List - Problems (1) Ketoacidosis in type I diabetes mellitus Code(s): E10.10 - TYPE 1 DIABETES MELLITUS WITH KETOACIDOSIS WITHOUT COMA (2) Cerebrovascular accident (CVA) Code(s): I63.9 - CEREBRAL INFARCTION, UNSPECIFIED Qualifiers: CVA mechanism: unspecified Qualified Code(s): I63.9 - Cerebral infarction, unspecified (3) Hypokalemia Code(s): E87.6 - HYPOKALEMIA (4) Lactic acid acidosis Code(s): E87.2 - ACIDOSIS Assessment/Plan T1DM with DKA Lactic acidosis GIANCARLO Leukocytosis possibly reactive AMS A gap closed CO2 20 Got Levemir 10 in the morning today On 10.25.17 she was on Levemir 10 units BID, On other admissions she was on 6 to 10 units per day Will Continue with 10 units daily in the morning for now Novolog SS coverage Continue D5 1/2 NS until food intake is adequate. Pt needs to be on Levemir prevent redevelopment of DKA, Increase D5 1/2 NS if necessary to maintain blood sugar 120 to 200 Electrolyte replacement as necessary Will f/u
[2017-11-18] MEDS ORDERED: INSULIN (LEVEMIR) 100 UNITS/ML UNITS SQ SCH (22:00)
[2017-11-18] MEDS ORDERED: INSULIN SLIDING SCALE (NOVOLOG) 1 VIAL SQ SCH (22:00)
[2017-11-18] MEDS: POTASSIUM CHLORIDE 10 MEQ in SODIUM CHLORIDE 0.45% 1,000 ML IVPB SCH (22:04)
[2017-11-19] MEDS ORDERED: ACETAMINOPHEN 1000 MG/100 ML VIAL (NON FORMULARY) IVPB ONE (00:59)
[2017-11-19] MEDS ORDERED: PIPERACILLIN/TAZOB 3.375 GM 3.375 GM in DEXTROSE 5%-WATER - 50 ML IVPB SCH (05:00)
[2017-11-19 06:39] LABS: HEMATOCRIT 31.2 % (32.4-45.2); HEMOGLOBIN 10.2 GM/dL (10.7-15.3); MCH 28.7 pg (25.7-33.7); MCHC 32.8 g/dl (32.0-36.0); MEAN CELL VOLUME 87.4 fl (80-96); MEAN PLT VOLUME 8.7 fl (7.5-11.1); PLATELET COUNT 301 K/MM3 (134-434); RBC 3.57 M/mm3 (3.60-5.2); RDW 16.2 % (11.6-15.6); WHITE BLOOD COUNT 14.1 K/mm3 (4.0-10.0)
[2017-11-19] MEDS: INSULIN (LEVEMIR) 100 UNITS/ML UNITS SQ SCH (06:43)
[2017-11-19] MEDS: INSULIN SLIDING SCALE (NOVOLOG) 1 VIAL SQ SCH ×5 (06:43→21:44)
[2017-11-19 07:20] LABS: ALBUMIN 2.7 g/dl (3.4-5.0); ALK PHOS 87 U/L (45-117); ANION GAP 12 (8-16); BILIRUBIN,TOTAL 0.3 mg/dL (0.2-1.0); BLOOD UREA NITROGEN 11 mg/dL (7-18); CALCIUM 7.9 mg/dL (8.5-10.1); CHLORIDE 116 mmol/L (98-107); CO2 21 mmol/L (21-32); CREATININE 0.9 mg/dL (0.55-1.02); GLUCOSE,RANDOM 69 mg/dL (74-106); MAGNESIUM 1.8 mg/dL (1.8-2.4); PHOSPHOROUS 2.2 mg/dL (2.5-4.9); SGOT/AST 55 U/L (15-37); SGPT/ALT 27 U/L (12-78); SODIUM 149 mmol/L (136-145); TOT PROT 5.4 g/dl (6.4-8.2)
[2017-11-19 07:32] LABS: POTASSIUM 2.8 mmol/L (3.5-5.1)
--- NOTE | 2017-11-19 09:05 | PN ---
Progress Note (short form) - Note Progress Note: Awake, responds to stimuli Vital Signs Period Temp Pulse Resp BP Sys/Rapp Pulse Ox Last 24 Hr 98.2 F-98.8 F 67-95 21-32 92-145/67-86 97-98 PE: awake Neck: supple, No JVD Lungs: CTA Abd: Benign CVS: S1S2 EXt: No edema Neuro: awake CMP Sodium 149 mmol/L (136-145) H 11/19/17 05:00 Potassium 2.8 mmol/L (3.5-5.1) L* 11/19/17 05:00 Chloride 116 mmol/L (98-107) H 11/19/17 05:00 Carbon Dioxide 21 mmol/L (21-32) 11/19/17 05:00 Anion Gap 12 (8-16) 11/19/17 05:00 BUN 11 mg/dL (7-18) 11/19/17 05:00 Creatinine 0.9 mg/dL (0.55-1.02) 11/19/17 05:00 Creat Clearance w eGFR > 60 (>60) 11/19/17 05:00 POC Glucometer 168 UNITS (80-120) 11/19/17 17:04 Random Glucose 69 mg/dL (74-106) L 11/19/17 05:00 Hemoglobin A1c % 9.9 % (4.8-6.0) H 11/19/17 05:00 Lactic Acid 2.7 mmol/L (0.0-2.0) H* 11/19/17 06:00 Calcium 7.9 mg/dL (8.5-10.1) L 11/19/17 05:00 Phosphorus 2.2 mg/dL (2.5-4.9) L 11/19/17 05:00 Magnesium 1.8 mg/dL (1.8-2.4) 11/19/17 05:00 Total Bilirubin 0.3 mg/dL (0.2-1.0) D 11/19/17 05:00 AST 55 U/L (15-37) H 11/19/17 05:00 ALT 27 U/L (12-78) 11/19/17 05:00 Alkaline Phosphatase 87 U/L (45-117) 11/19/17 05:00 Creatine Kinase 166 IU/L (26-192) 11/18/17 17:40 Creatine Kinase Index 3.0 % (0.0-5.0) 11/18/17 17:40 CK-MB (CK-2) 5.137 ng/mL (0.5-3.6) H 11/18/17 17:40 Troponin I 0.02 ng/ml (0.00-0.05) 11/18/17 17:40 Total Protein 5.4 g/dl (6.4-8.2) L 11/19/17 05:00 Albumin 2.7 g/dl (3.4-5.0) L 11/19/17 05:00 Lipase 117 U/L (73-393) 11/17/17 16:30 Serum , Qual Negative 11/17/17 16:30 Current Medications Generic Name Dose Route Start Last Admin Trade Name Freq PRN Reason Stop Dose Admin Heparin Sodium (Porcine) 5,000 unit 11/18/17 22:00 11/19/17 09:35 Heparin - SQ 5,[address] [facility] Administration Potassium Chloride 10 meq/ 1,005 mls @ 100 mls/hr 11/18/17 21:45 11/19/17 17: 45 Sodium Chloride IVPB Not Given Q10H [facility] Insulin Aspart 1 vial 11/18/17 22:00 11/19/17 17:05 Novolog Vial Sliding Scale - SQ [id number] Insulin Detemir 10 units 11/19/17 07:00 11/19/17 06:43 Levemir Vial SQ Not Given 0700 [facility] Lidocaine/Aluminum/Magnesium/Simeth 5 ml 11/19/17 12:00 11/19/17 13:01 Magic Mouthwash *Sjr Formula* - MM 5 ml Q6HPO [facility] Administration Ondansetron HCl 4 mg 11/18/17 18:28 11/19/17 09:35 Zofran Injection IVPUSH 4 mg Q4H PRN Administration NAUSEA AND/OR VOMITING AP: T1DM with DKA Lactic acidosis GIANCARLO Leukocytosis possibly reactive AMS Hypokalemia A gap closed CO2 21 K+ 2.8 White count treding down Levemir 10 in the morning daily, didin't get dose in the morning, so will give 8 units stat On 10.25.17 she was on Levemir 10 units BID, On other admissions she was on 6 to 10 units per day Will Continue with 10 units daily in the morning for now Novolog SS coverage Change IVF to D5 1/2 NS 20 KCl until food intake is adequate. Pt needs to be on Levemir prevent redevelopment of DKA, Increase D5 1/2 NS if necessary to maintain blood sugar 120 to 200 Electrolyte replacement as necessary, seen by Nephrology Will f/u Problem List - Problems (1) Ketoacidosis in type I diabetes mellitus Code(s): E10.10 - TYPE 1 DIABETES MELLITUS WITH KETOACIDOSIS WITHOUT COMA (2) Cerebrovascular accident (CVA) Code(s): I63.9 - CEREBRAL INFARCTION, UNSPECIFIED Qualifiers: CVA mechanism: unspecified Qualified Code(s): I63.9 - Cerebral infarction, unspecified (3) Hypokalemia Code(s): E87.6 - HYPOKALEMIA (4) Lactic acid acidosis Code(s): E87.2 - ACIDOSIS
[2017-11-19] MEDS ORDERED: KCL 10 MEQ IVPB 10 MEQ/100 ML INFUS.BAG IVPB SCH (09:15)
[2017-11-19] MEDS ORDERED: NAPH,MB-DB/K PH,MBDB POWDER PACKET PO ONE (09:19)
--- NOTE | 2017-11-19 09:24 | PN ---
Progress Note (short form) - Note Progress Note: S: -- More responsive this AM. -- Complains of diarrhea and tooth pain O: Vital Signs Period Temp Pulse Resp BP Sys/Rapp Pulse Ox Last 24 Hr 95.0 F-98.1 F 95-108 28-33 65-143/40-71 93-100 Tele - No events GEN: Eyes closed, moaning, respond to voice, not following commands HEENT: PERRL, unable to assess EOM CV: S1, S2, strong pulse, no murmur LUNG: CTAB ABD: Soft, NT, ND MSK: No edema, no erythema NEURO: Difficult to assess. Respond to voice. Known L hemiplegia. No nuchal ridigity A/P: 47 yo woman well known to this service for frequent admissions for DKA, recent CVA (left sided hemiparesis), found unresponsive by neighbor, being treated for DKA. # DKA -- Numerous admissions. Likely from poor compliance. On Levemir 10 AM. On D51/ 2NS w/ 20meq K. More through IV # AMS -- Improved mental status. Was likely from metabolic encephalopathy 2/2 DKA vs opiate ingestion. Head CT normal. # Failure to Thrive 2/2 narrow esophagus -- Diagnosed on endoscopy last admission. Not amenable to balloon dilation. Will need to be evaluated at a tertiary care center. Keep on liquid diet. S/S, nutrition to see. # Lactic Acidosis -- Improved w/ hydration. # GIANCARLO -- Likely prerenal 2/2 dehydration, improving w/ fluids. # FEN/PPx -- D5 1/2NS w/K at 100cc/hr; Full liquids. HSQ bid # Dispo -- Transfer to floors Sanam Mix MD - pGY1 ICU Resident
[2017-11-19] MEDS ORDERED: POTASSIUM CHLORIDE 10 MEQ PREMIX IVPB (POTASSIUM RIDER) IVPB SCH (09:26)
[2017-11-19] MEDS: POTASSIUM CHLORIDE 10 MEQ in SODIUM CHLORIDE 0.45% 1,000 ML IVPB SCH ×3 (09:27→17:45)
[2017-11-19] MEDS: ONDANSETRON 4 MG/2 ML VIAL IVPUSH PRN ×2 (09:35→21:40)
[2017-11-19] MEDS: HEPARIN NA (PORCINE) 5,000 UNITS/ML 1ML VIAL SQ SCH ×2 (09:35→21:41)
[2017-11-19] MEDS ORDERED: POTASSIUM CHLORIDE 20 MEQ PREMIX IVPB 100 ML IVPB ONE ×2 (10:30→11:32)
[2017-11-19] MEDS ORDERED: KETOROLAC TROMETHAMINE 30 MG/1 ML VIAL IVPB ONE (11:00)
[2017-11-19] MEDS ORDERED: POTASSIUM CHLORIDE ORAL LIQUID 20 MEQ/15 ML PO ONE (11:01)
--- NOTE | 2017-11-19 11:04 | CON.GI ---
Consult Consult Specialty:: GI Reason for Consultation:: dysphagia - History of Present Illness History of Present Illness: chart reviewed. Events noted. The patient is known to GI service from prior admissions and recent outpatient upper endoscopy, which revealed significant esophageal narrowing that precluded complete examination of the esophagus stomach and the small bowel. The upper endoscopy did not reveal a focal stricture but rather diffusely narrow esophagus without obvious intraluminal lesions. The patient was referred to a tertiary center for evaluation and definite therapy. She maintain her caloric intake with Ensure, Glucerna and other liquid meals. As per initial intake: This is a 47 y/o woman with T1DM with frequent admissions for DKA HLD, CVA (left sided hemiparesis), gastroparesis last admitted in September for same admitted again after she was found down in home by neighbor during welfare check. Pt was with altered mental status, groaning and rolling around on floor. 911 was activated and pt was brought to ED here. In ED pt was hypothermic 95, tachy 100s, RR 30s, normotensive. BGL was >1200, ph 6.8, Hco3 8, lactate 6, WBC 26 (14% bands). She was given IV insulin, broad spectrum abx (vanc/zosyn) though there was no clear localizing source (Ua without wbc, cxr without infiltrate, lfts wnl, cxl pending) and a total of 4L of isotonic fluid. Pt was transferred to ICU for further care. In the ICU she was arousable to loud voice, intermittently answered simple questions was moving all ext equally. Her Resp rate had improved, BGL was 180, D5 1/2 NS with 20meq K started at 75, Repeat ABG w/ pH 7.3. Consult called for management of blood sugar. Pt currently off Insulin drip with CO2 of 20 and Normal A Gap. Is currently on D5 1/2NS with KCl and IV Khos, Got Levemir 10 units in the morning today. 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: CVA (right MCA), Migraine Gastrointestinal: Yes: Other (Gastroparesis) ...LMP: 04/14/13 Musculoskeletal: Yes: Chronic low back pain Endocrine: Yes: Diabetes Mellitus Additional Medical History: dka in the past - Past Surgical History Past Surgical History: Yes: Cholecystectomy - Alcohol/Substance Use Hx Alcohol Use: No History of Substance Use: reports: None - Smoking History Smoking history: Unknown if ever smoked Have you smoked in the past 12 months: No Aproximately how many cigarettes per day: 20 - Social History ADL: Independent History of Recent Travel: No Home Medications - Allergies Allergies/Adverse Reactions: Allergies Allergy/AdvReac Type Severity Reaction Status Date / Time No Known Allergies Allergy Verified 10/23/17 16:32 - Home Medications Home Medications: Ambulatory Orders Unobtainable 11/17/17 Family Disease History - Family Disease History Family History: Unremarkable Family Disease History: Heart Disease: Father (cad) Review of Systems Findings/Remarks: As per H&P and HPI Physical Exam-GI Vital Signs: Vital Signs Temperature 98.6 F 11/19/17 10:00 Pulse Rate 88 11/19/17 10:00 Respiratory Rate 22 11/19/17 10:00 Blood Pressure 133/73 11/19/17 10:00 O2 Sat by Pulse Oximetry (%) 98 11/19/17 09:00 Constitutional: Yes: Thin HENT: Yes: Atraumatic Neck: Yes: Supple Cardiovascular: No: Bradycardia, Tachycardia Respiratory: Yes: Regular Gastrointestinal Inspection: No: Distention ...Auscultate: Yes: Normoactive Bowel Sounds ...Palpate: Yes: Soft. No: Firm/Rigid, Guarding, Tenderness Neurological: Yes: Lethargy Labs: CBC, BMP 11/19/17 05:00 11/19/17 05:00 INR, PTT INR 0.98 (0.82-1.09) 11/17/17 16:30 Laboratory Last Values WBC 14.1 K/mm3 (4.0-10.0) H 11/19/17 05:00 RBC 3.57 M/mm3 (3.60-5.2) L 11/19/17 05:00 Hgb 10.2 GM/dL (10.7-15.3) L 11/19/17 05:00 Hct 31.2 % (32.4-45.2) L 11/19/17 05:00 MCV 87.4 fl (80-96) 11/19/17 05:00 MCH 28.7 pg (25.7-33.7) 11/19/17 05:00 MCHC 32.8 g/dl (32.0-36.0) 11/19/17 05:00 RDW 16.2 % (11.6-15.6) H 11/19/17 05:00 Plt Count 301 K/MM3 (134-434) 11/19/17 05:00 MPV 8.7 fl (7.5-11.1) 11/19/17 05:00 Neutrophils % 85.0 % (42.8-82.8) H 11/18/17 05:00 Neutrophils % (Manual) No Result Required. 11/17/17 20:55 Band Neutrophils % 14.0 % 11/17/17 16:30 Lymphocytes % 9.4 % (8-40) D 11/18/17 05:00 Lymphocytes % (Manual) 12.0 % (8-40) D 11/17/17 16:30 Monocytes % 5.4 % (3.8-10.2) 11/18/17 05:00 Monocytes % (Manual) 3 % (3.8-10.2) L 11/17/17 16:30 Eosinophils % 0.1 % (0-4.5) 11/18/17 05:00 Eosinophils % (Manual) 0.0 % (0-4.5) 11/17/17 16:30 Basophils % 0.1 % (0-2.0) 11/18/17 05:00 Basophils % (Manual) 0.0 % (0-2.0) 11/17/17 16:30 Nucleated RBC % 0 % (0-0) 11/18/17 05:00 Metamyelocytes 1 % (0-2) 11/17/17 16:30 Differential Comment 11/17/17 20:55 Hypochromia 1+ 11/17/17 16:30 Macrocytosis 1+ 11/17/17 16:30 PT with INR 11.10 SEC (9.7-13.0) 11/17/17 16:30 INR 0.98 (0.82-1.09) 11/17/17 16:30 PTT (Actin FS) 22.6 SECONDS (26.9-34.4) L 11/17/17 16:30 Anticoagulation Therapy No Result Required. 11/18/17 01:50 Puncture Site Right radial 11/18/17 01:50 ABG pH 7.33 (7.35-7.45) L 11/18/17 01:50 ABG pCO2 at Pt Temp 18.1 mmHg (35-45) L* D 11/18/17 01:50 ABG pO2 at Pt Temp 61.5 mmHg (80-100) L D 11/18/17 01:50 ABG HCO3 9.2 meq/L (22-26) L* 11/18/17 01:50 ABG O2 Sat (Measured) 94.2 % (90-98.9) 11/18/17 01:50 ABG O2 Content 14.4 % vol (15-22) L 11/18/17 01:50 ABG Base Excess -15.1 meq/l (-2-2) L* 11/18/17 01:50 Atul Test Positive 11/18/17 01:50 VBG pH 7.00 (7.32-7.42) L* D 11/17/17 20:50 POC VBG pCO2 24.1 mmHg (38-52) L 11/17/17 20:50 POC VBG pO2 57.8 mmHg (28-48) H D 11/17/17 20:50 Mixed VBG HCO3 5.6 meq/L (19-25) L* 11/17/17 20:50 O2 Delivery Device No Result Required. 11/18/17 01:50 Oxygen Flow Rate No 11/18/17 01:50 Vent Mode No Result Required. 11/18/17 01:50 Vent Rate No Result Required. 11/18/17 01:50 Mechanical Rate No Result Required. 11/18/17 01:50 Pressure Support Vent No Result Required. 11/18/17 01:50 Sodium 149 mmol/L (136-145) H 11/19/17 05:00 Potassium 2.8 mmol/L (3.5-5.1) L* 11/19/17 05:00 Chloride 116 mmol/L (98-107) H 11/19/17 05:00 Carbon Dioxide 21 mmol/L (21-32) 11/19/17 05:00 Anion Gap 12 (8-16) 11/19/17 05:00 BUN 11 mg/dL (7-18) 11/19/17 05:00 Creatinine 0.9 mg/dL (0.55-1.02) 11/19/17 05:00 Creat Clearance w eGFR > 60 (>60) 11/19/17 05:00 POC Glucometer > 400 UNITS (80-120) 11/17/17 19:06 Random Glucose 69 mg/dL (74-106) L 11/19/17 05:00 Lactic Acid 2.7 mmol/L (0.0-2.0) H* 11/19/17 06:00 Calcium 7.9 mg/dL (8.5-10.1) L 11/19/17 05:00 Phosphorus 2.2 mg/dL (2.5-4.9) L 11/19/17 05:00 Magnesium 1.8 mg/dL (1.8-2.4) 11/19/17 05:00 Total Bilirubin 0.3 mg/dL (0.2-1.0) D 11/19/17 05:00 AST 55 U/L (15-37) H 11/19/17 05:00 ALT 27 U/L (12-78) 11/19/17 05:00 Alkaline Phosphatase 87 U/L (45-117) 11/19/17 05:00 Creatine Kinase 166 IU/L (26-192) 11/18/17 17:40 Creatine Kinase Index 3.0 % (0.0-5.0) 11/18/17 17:40 CK-MB (CK-2) 5.137 ng/mL (0.5-3.6) H 11/18/17 17:40 Troponin I 0.02 ng/ml (0.00-0.05) 11/18/17 17:40 Total Protein 5.4 g/dl (6.4-8.2) L 11/19/17 05:00 Albumin 2.7 g/dl (3.4-5.0) L 11/19/17 05:00 Lipase 117 U/L (73-393) 11/17/17 16:30 Serum , Qual Negative 11/17/17 16:30 Urine Color Straw 11/17/17 17:00 Urine Appearance Clear 11/17/17 17:00 Urine pH 5.0 (5.0-8.0) D 11/17/17 17:00 Ur Specific Isabel 1.020 (1.001-1.035) 11/17/17 17:00 Urine Protein 1+ (NEGATIVE) H 11/17/17 17:00 Urine Glucose (UA) 3+ (NEGATIVE) H 11/17/17 17:00 Urine Ketones 2+ (NEGATIVE) H 11/17/17 17:00 Urine Blood Negative (NEGATIVE) 11/17/17 17:00 Urine Nitrite Negative (NEGATIVE) 11/17/17 17:00 Urine Bilirubin Negative (<2.0 mg/dL) 11/17/17 17:00 Urine Urobilinogen Negative mg/dL (0.2-1.0) 11/17/17 17:00 Ur Leukocyte Esterase Negative (NEGATIVE) 11/17/17 17:00 Urine WBC (Auto) 1 /hpf (3-5) 11/17/17 17:00 Urine RBC (Auto) <1 /hpf (0-3) 11/17/17 17:00 Ur Epithelial Cells Rare /HPF (FEW) 11/17/17 17:00 Urine Bacteria Rare /hpf (NONE SEEN) 11/17/17 17:00 Urine Mucus Rare 11/17/17 17:00 Opiates Screen Positive ng/ml (SBJMRY=878) 11/17/17 17:00 Methadone Screen Negative ng/ml (YKWDKC=796) 11/17/17 17:00 Barbiturate Screen Negative ng/ml (JRXZYT=049) 11/17/17 17:00 Phencyclidine Screen Negative ng/ml (CUTOFF=25) 11/17/17 17:00 Ur Amphetamines Screen Negative ng/ml (FOXFVL=769) 11/17/17 17:00 MDMA (Ecstasy) Screen Negative ng/ml (DUPDAR=659) 11/17/17 17:00 Benzodiazepines Screen Negative ng/ml (RFGSYE=743) 11/17/17 17:00 Cocaine Screen Negative ng/ml (MAGOCD=658) 11/17/17 17:00 U Marijuana (THC) Screen Negative ng/ml (CUTOFF=50) 11/17/17 17:00 Acetone, Qual Positive large 3+ (NEGATIVE) H 11/17/17 16:30 Imaging - Results Cat Scan: Report Reviewed ( head) Problem List - Problems (1) Dysphagia Code(s): R13.10 - DYSPHAGIA, UNSPECIFIED Qualifiers: Dysphagia type: unspecified Qualified Code(s): R13.10 - Dysphagia, unspecified Assessment/Plan a 47-year-old female with the above medical issues known to have diffusely narrowed esophagus without discernible focal strictures and prior history of severe esophagitis. As it stands, this condition is currently not amenable to [id number] balloon dilatation. The patient was scheduled for evaluation and possibly definite treatment at [facility]. She is unable to tolerate regular diet. She maintains her caloric intake with liquid meals, which likely complicates management of her diabetes mellitus. Recommend liquid diet, esophagogram, follow-up with [facility] on the appointment date. If not scheduled to be seen soon, we will discuss with the patient and her father temporary PEG placement. Obtain nutrition and speech and swallow consults.
[2017-11-19] MEDS: POTASSIUM CHLORIDE 10 MEQ PREMIX IVPB (POTASSIUM RIDER) IVPB SCH ×2 (11:30→11:33)
[2017-11-19] MEDS ORDERED: SODIUM CHLORIDE 250 ML with POTASSIUM CHLORIDE 20 MEQ IVPB ONE (12:00)
[2017-11-19] MEDS ORDERED: POTASSIUM CHLORIDE 20 MEQ in SODIUM CHLORIDE 250 ML IVPB ONE ×2 (12:00→13:00)
--- NOTE | 2017-11-19 12:06 | CONSULT ---
Admitting History and Physical - Primary Care Physician PCP: Carol Ann Burns - Admission History of Present Illness: Admit w/ diabetic gastroparesis w/ Type I DM, c/o odynophagia & dysphagia PER GI: The patient is known to GI service from prior admissions and recent outpatient upper endoscopy, which revealed significant esophageal narrowing that precluded complete examination of the esophagus stomach and the small bowel. The upper endoscopy did not reveal a focal stricture but rather diffusely narrow esophagus without obvious intraluminal lesions. The patient was referred to a tertiary center for evaluation and definite therapy. She maintain her caloric intake with Ensure, Glucerna and other liquid meals. Seen by me post CVA with good tolerance of soft diet/thin liquid 08/2017. - s/p 10/24/17 Esophagram> unremarkable exam except small hiatal hernia. Per EMR: Numerous admissions. Likely from poor compliance. On Levemir 10 AM. On D51/2NS w / 20meq K. More through IV Improved mental status. Was likely from metabolic encephalopathy 2/2 DKA vs opiate ingestion. Head CT normal. 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: CVA (right MCA), Migraine Gastrointestinal: Yes: Other (Gastroparesis) ...LMP: 04/14/13 Musculoskeletal: Yes: Chronic low back pain Endocrine: Yes: Diabetes Mellitus - Past Surgical History Past Surgical History: Yes: Cholecystectomy - Smoking History Smoking history: Unknown if ever smoked Have you smoked in the past 12 months: No Aproximately how many cigarettes per day: 20 - Alcohol/Substance Use Hx Alcohol Use: No History of Substance Use: reports: None - Social History ADL: Independent History of Recent Travel: No History - Admission Reason For Visit: DIABETIC KETOACIDOSIS - Diagnostics X-ray: Report Reviewed CT Scan: Report Reviewed - General Mental Status: Alert and Oriented, Awake and Alert, Able to Follow Commands Attention: Intact Ability to Follow Directions: Good Head/Neck Control: WFL - Hearing Hearing: Normal Speech Evaluation - Communication Primary Language: SLOV[place] Communication: Yes: Within Normal Limits Oral Expression Ability: Yes: No Impairment - Speech Production Able to Make Needs Known: Yes: WNL Intelligibility: Yes: WNL - Speech Characteristics Voice Loudness: Normal Voice Pitch: Yes: Normal Voice Phonatory-based Quality: Yes: Normal Speech Pattern: Normal Nasal Resonance: Normal Articulation: Yes: Precise Rate of Speech: Intact - Language/Auditory Comprehension Follows: Yes: 2 Stage Simple Commands - Language/Verbal Expression Able to Respond to Simple Queries: Yes: WNL Able to Communicate Wants and Needs: Yes: WNL Functional Communication Status: Yes: WNL - Memory/Perception 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 Memory: Yes: WNL Short Term Memory: Yes: WNL - Swallow Evaluation/Bedside Assessment Current Nutritional Intake: Full Liquids (diabetic) Oral Secretions: Yes: WFL Dentition: Yes: Edentulous (upper), Missing Teeth (lower, teeth in anterior region only) Facial Symmetry at Rest: Symmetrical Facial Symmetry on Retraction: Symmetrical Sensation: Normal Against Resistance Opening: Normal Against Resistance Closing: Normal Pucker Lips: Normal Smile: Normal Lingual Movement: Normal, Symmetric Lingual Speed of Movement: Normal Lingual Movement Strgth Against Opposition: Normal Lingual Movement Characteristics: Normal Velopharyngeal Movement: Normal Laryngeal Elevation: WFL Laryngeal Movement: Able to Palpate Rate of Intake: WFL Bolus Size: WFL Oral Prep Time: WFL A-P Transit: WFL Pocketing: None Timing of Swallow: WFL Coughing/Throat Clear: No Change in Voice: No Recommendations - Speech Evaluation, Impression/Plan Impression: r/o esophageal dysphagia. Good oropharyngeal function - Dysphagia Impressions/Plan *Silent aspiration: cannot be R/O at bedside Recommendations: MBS w Esophagus, Esophagram (per gi)
--- NOTE | 2017-11-19 12:07 | PN ---
Teaching Attending Note Name of Resident: Sanam Mix ATTENDING PHYSICIAN STATEMENT I saw and evaluated the patient. I reviewed the resident's note and discussed the case with the resident. I agree with the resident's findings and plan as documented. SUBJECTIVE: Pt seen and examined in the ICU. Remains off insulin gtt. Requesting to see Dr. Voss. OBJECTIVE: Last Vital Signs Temp Pulse Resp BP Pulse Ox 98.6 F 88 22 133/73 98 11/19/17 10:00 11/19/17 10:00 11/19/17 10:00 11/19/17 10:00 11/19/17 09:00 Intake & Output 11/16/17 11/17/17 11/18/17 11/19/17 23:59 23:59 23:59 23:59 Intake Total 3500 2783 1000 Output Total 200 2290 600 Balance 3300 493 400 Weight 54.431 kg 50 kg Gen: NAD at rest Heart: RRR Lung: decreased breath sounds at the bases Abd: soft, nontender Ext: no edema CBC, BMP 11/19/17 05:00 11/19/17 05:00 Active Medications Heparin Sodium (Porcine) (Heparin -) 5,000 unit SQ BID [facility] Last Admin: 11/19/17 09:35 Dose: 5,000 unit Potassium Chloride 10 meq/ (Sodium Chloride) 1,005 mls @ 100 mls/hr IVPB Q10H [facility] Last Admin: 11/19/17 09:27 Dose: 100 mls/hr Potassium Chloride (Potassium Chloride 10 Meq Premix Ivpb -) 10 meq in 100 mls @ 100 mls/hr IVPB Q60M [facility] Stop: 11/19/17 12:59 Potassium Chloride 20 meq/ (Sodium Chloride) 260 mls @ 173.333 mls/hr IVPB ONCE ONE Stop: 11/19/17 14:29 Insulin Aspart (Novolog Vial Sliding Scale -) 1 vial SQ Q4HWA [facility]; Protocol Last Admin: 11/19/17 10:55 Dose: Not Given Insulin Detemir (Levemir Vial) 10 units SQ 0700 [facility] Last Admin: 11/19/17 06:43 Dose: Not Given Lidocaine/Aluminum/Magnesium/Simeth (Magic Mouthwash *Sjr Formula* -) 5 ml MM Q6HPO [facility] Ondansetron HCl (Zofran Injection) 4 mg IVPUSH Q4H PRN PRN Reason: NAUSEA AND/OR VOMITING Last Admin: 11/19/17 09:35 Dose: 4 mg ASSESSMENT AND PLAN: Diabetic Ketoacidosis resolved Lactic Acidosis Acute Kidney Injury improving Diabetic Gastroparesis Esophageal Stricture - glucose control - GI eval - PO as tolerated - IVF - monitor urine output, creatinine - replete lytes - can monitor on floor
[2017-11-19] MEDS: KCL 10 MEQ IVPB 10 MEQ/100 ML INFUS.BAG IVPB SCH (12:57)
[2017-11-19] MEDS: MAG HYDROX/ALH/SMC/DPHA/LIDO 240 ML MOUTHWASH MM SCH ×2 (13:01→20:01)
--- NOTE | 2017-11-19 13:20 | CONSULT ---
Consult Consult Specialty:: Nephrology Reason for Consultation:: giancarlo and hypernatremia - History of Present Illness Chief Complaint: pt found laying on the floor and minimally responsive History of Present Illness: Pt is a 47 year old female with pmhx of DM, gastroparesis, and CVA who presents to the ER with altered mental status. She was found to be in GIANCARLO and I was called to evaluate her. She was also found to be hypernatremic. Pt is now awake and alert. She says that she has not been able to eat much solid food and has been living on shakes. She denies history of kidney disease. She denies chest pain or palpitations. She has multiple admissions for DKA. - History Source History Provided By: Patient - Past Medical History MEDICAL CLAIMS SPECIALIST: Yes: CVA (right MCA), Migraine Gastrointestinal: Yes: Other (Gastroparesis) ...LMP: 04/14/13 Musculoskeletal: Yes: Chronic low back pain Endocrine: Yes: Diabetes Mellitus Additional Medical History: dka in the past - Past Surgical History Past Surgical History: Yes: Cholecystectomy - Alcohol/Substance Use Hx Alcohol Use: No History of Substance Use: reports: None - Smoking History Smoking history: Unknown if ever smoked Have you smoked in the past 12 months: No Aproximately how many cigarettes per day: 20 - Social History ADL: Independent History of Recent Travel: No Home Medications - Allergies Allergies/Adverse Reactions: Allergies Allergy/AdvReac Type Severity Reaction Status Date / Time No Known Allergies Allergy Verified 10/23/17 16:32 - Home Medications Home Medications: Ambulatory Orders Unobtainable 11/17/17 Family Disease History - Family Disease History Family Disease History: Heart Disease: Father (cad) Review of Systems - Review of Systems Constitutional: reports: Malaise Eyes: reports: No Symptoms HENT: reports: No Symptoms Neck: reports: No Symptoms Cardiovascular: reports: No Symptoms Respiratory: reports: No Symptoms Gastrointestinal: reports: Dysphagia, Indigestion Genitourinary: reports: No Symptoms Musculoskeletal: reports: No Symptoms Neurological: reports: No Symptoms Endocrine: reports: No Symptoms Hematology/Lymphatic: reports: No Symptoms Psychiatric: reports: No Symptoms Physical Exam Vital Signs: Vital Signs Temperature 98.6 F 11/19/17 10:00 Pulse Rate 86 11/19/17 12:00 Respiratory Rate 22 11/19/17 12:00 Blood Pressure 120/67 11/19/17 12:00 O2 Sat by Pulse Oximetry (%) 98 11/19/17 09:00 Constitutional: Yes: Calm Eyes: Yes: Conjunctiva Clear HENT: Yes: Atraumatic Neck: Yes: Supple Cardiovascular: Yes: S1, S2 Respiratory: Yes: CTA Bilaterally Gastrointestinal: Yes: Normal Bowel Sounds, Soft Renal/: Yes: WNL Musculoskeletal: Yes: WNL Edema: No Neurological: Yes: Oriented Psychiatric: Yes: Oriented Labs: CBC, BMP 11/19/17 05:00 11/19/17 05:00 Imaging - Results Ultrasound: Report Reviewed Problem List - Problems (1) GIANCARLO (acute kidney injury) Code(s): N17.9 - ACUTE KIDNEY FAILURE, UNSPECIFIED (2) Hypokalemia Code(s): E87.6 - HYPOKALEMIA (3) Dysphagia Code(s): R13.10 - DYSPHAGIA, UNSPECIFIED Qualifiers: Dysphagia type: unspecified Qualified Code(s): R13.10 - Dysphagia, unspecified (4) Cerebrovascular accident (CVA) Code(s): I63.9 - CEREBRAL INFARCTION, UNSPECIFIED Qualifiers: CVA mechanism: unspecified Qualified Code(s): I63.9 - Cerebral infarction, unspecified Assessment/Plan Current Medications Generic Name Dose Route Start Last Admin Trade Name Myronq PRN Reason Stop Dose Admin Heparin Sodium (Porcine) 5,000 unit 11/18/17 22:00 11/19/17 09:35 Heparin - SQ 5,000 unit BID [facility] Administration Potassium Chloride 10 meq/ 1,005 mls @ 100 mls/hr 11/18/17 21:45 11/19/17 14: 59 Sodium Chloride IVPB 100 mls/hr Q10H [facility] Administration Insulin Aspart 1 vial 11/18/17 22:00 11/19/17 14:18 Novolog Vial Sliding Scale - SQ 2 units Q4HWA [facility] Administration Protocol Insulin Detemir 10 units 11/19/17 07:00 11/19/17 06:43 Levemir Vial SQ Not Given 0700 [facility] Lidocaine/Aluminum/Magnesium/Simeth 5 ml 11/19/17 12:00 11/19/17 13:01 Magic Mouthwash *Sjr Formula* - MM 5 ml Q6HPO [facility] Administration Ondansetron HCl 4 mg 11/18/17 18:28 11/19/17 09:35 Zofran Injection IVPUSH 4 mg Q4H PRN Administration NAUSEA AND/OR VOMITING Impression 1. GIANCARLO 2. DKA 3. lactic acidosis 4. DM 5. gastroparesis 6. hypokalemia Plan - repeat potassium level - cont fluids - renal function is improving - sodium is improving - likely giancarlo secondary to dehydration from decreased intake and DKA Dr Butler
[2017-11-19 15:14] VITALS: BMI 18.8
--- NOTE | 2017-11-19 15:46 | PN ---
Progress Note, Physician History of Present Illness: patient doing well no complaints doing well wbc trending down - Current Medication List Current Medications: Active Medications Heparin Sodium (Porcine) (Heparin -) 5,000 unit SQ BID [facility] Last Admin: 11/19/17 09:35 Dose: 5,000 unit Potassium Chloride 10 meq/ (Sodium Chloride) 1,005 mls @ 100 mls/hr IVPB Q10H [facility] Last Admin: 11/19/17 14:59 Dose: 100 mls/hr Insulin Aspart (Novolog Vial Sliding Scale -) 1 vial SQ Q4HWA [facility]; Protocol Last Admin: 11/19/17 14:18 Dose: 2 units Insulin Detemir (Levemir Vial) 10 units SQ 0700 [facility] Last Admin: 11/19/17 06:43 Dose: Not Given Lidocaine/Aluminum/Magnesium/Simeth (Magic Mouthwash *Sjr Formula* -) 5 ml MM Q6HPO [facility] Last Admin: 11/19/17 13:01 Dose: 5 ml Ondansetron HCl (Zofran Injection) 4 mg IVPUSH Q4H PRN PRN Reason: NAUSEA AND/OR VOMITING Last Admin: 11/19/17 09:35 Dose: 4 mg - Objective Vital Signs: Vital Signs Temperature 98.4 F 11/19/17 15:08 Pulse Rate 67 11/19/17 15:08 Respiratory Rate 22 11/19/17 15:08 Blood Pressure 136/80 11/19/17 15:08 O2 Sat by Pulse Oximetry (%) 97 11/19/17 15:16 Constitutional: Yes: No Distress, Calm Cardiovascular: Yes: Regular Rate and Rhythm Respiratory: Yes: Regular, CTA Bilaterally Gastrointestinal: Yes: Normal Bowel Sounds, Soft Musculoskeletal: Yes: WNL Extremities: Yes: WNL Neurological: Yes: Alert, Oriented Psychiatric: Yes: Alert, Oriented Labs: CBC, BMP 11/19/17 05:00 11/19/17 05:00 INR, PTT INR 0.98 (0.82-1.09) 11/17/17 16:30 Assessment/Plan Problem List - Problem (1) Diabetes mellitus, insulin dependent (IDDM), uncontrolled Code(s): E10.65 - TYPE 1 DIABETES MELLITUS WITH HYPERGLYCEMIA Qualifiers: Diabetes mellitus complication status: with ketoacidosis Assessment/Plan IDDM now with recurrent DKA Lactic acidosis AGMA in the setting of above GIANCARLO likely pre renal azotemia Leukocytosis possibly reactive Resolving AMS in the setting of DKA plan continue current mgmt close monitoring monitor wbc rest continue current mgmt will not give abx at this time rest as per icu cc time 40 min
[2017-11-19] MEDS ORDERED: INSULIN (LEVEMIR) 100 UNITS/ML UNITS SQ ONE (18:04)
[2017-11-19] MEDS: D5-1/2NS+20 MEQ KCL - 20 MEQ/1,000 ML INFUS.BAG IV SCH (18:16)
[2017-11-19] MEDS: KETOROLAC TROMETHAMINE 15 MG/ML VIAL IVPUSH PRN (18:28)
--- NOTE | 2017-11-19 18:35 | PN ---
Progress Note, Physician History of Present Illness: awake - Current Medication List Current Medications: Active Medications Heparin Sodium (Porcine) (Heparin -) 5,000 unit SQ BID [facility] Last Admin: 11/19/17 09:35 Dose: 5,000 unit Potassium Chloride/Dextrose/Sod Cl (D5-1/2ns+20 Meq Kcl -) 20 meq in 1,000 mls @ 75 mls/hr IV ASDIR [facility] Last Admin: 11/19/17 18:16 Dose: 75 mls/hr Insulin Aspart (Novolog Vial Sliding Scale -) 1 vial SQ Q4HWA [facility]; Protocol Last Admin: 11/19/17 17:05 Dose: Not Given Insulin Detemir (Levemir Vial) 10 units SQ 0700 [facility] Last Admin: 11/19/17 06:43 Dose: Not Given Ketorolac Tromethamine (Toradol Injection -) 15 mg IVPUSH Q6H PRN PRN Reason: PAIN LEVEL 6-10 Stop: 11/24/17 18:19 Last Admin: 11/19/17 18:28 Dose: 15 mg Lidocaine/Aluminum/Magnesium/Simeth (Magic Mouthwash *Sjr Formula* -) 5 ml MM Q6HPO [facility] Last Admin: 11/19/17 13:01 Dose: 5 ml Ondansetron HCl (Zofran Injection) 4 mg IVPUSH Q4H PRN PRN Reason: NAUSEA AND/OR VOMITING Last Admin: 11/19/17 09:35 Dose: 4 mg - Objective Vital Signs: Vital Signs Temperature 98.4 F 11/19/17 15:08 Pulse Rate 67 11/19/17 15:08 Respiratory Rate 22 11/19/17 15:08 Blood Pressure 136/80 11/19/17 15:08 O2 Sat by Pulse Oximetry (%) 97 11/19/17 15:16 Constitutional: Yes: No Distress HENT: Yes: Atraumatic Neck: Yes: Supple Cardiovascular: Yes: Regular Rate and Rhythm Respiratory: Yes: CTA Bilaterally Gastrointestinal: Yes: Normal Bowel Sounds Extremities: Yes: WNL Edema: No Peripheral Pulses WNL: Yes Neurological: Yes: Alert, Oriented Labs: CBC, BMP 11/19/17 05:00 11/19/17 05:00 INR, PTT INR 0.98 (0.82-1.09) 11/17/17 16:30 Problem List - Problems (1) Diabetes mellitus, insulin dependent (IDDM), uncontrolled Assessment/Plan: on insulin and bgms stable endocrine consult Code(s): E10.65 - TYPE 1 DIABETES MELLITUS WITH HYPERGLYCEMIA Qualifiers: Diabetes mellitus complication status: with ketoacidosis (2) Diabetic keto-acidosis Assessment/Plan: resolved replace K when needed Code(s): E13.10 - OTH DIABETES MELLITUS WITH KETOACIDOSIS WITHOUT COMA (3) Leukocytosis Assessment/Plan: cxs sent cxr no infilterate on emperic abx wbc count improving Code(s): D72.829 - ELEVATED WHITE BLOOD CELL COUNT, UNSPECIFIED (4) Septic shock Assessment/Plan: recovered cxs negative to date Code(s): A41.9 - SEPSIS, UNSPECIFIED ORGANISM; R65.21 - SEVERE SEPSIS WITH SEPTIC SHOCK
[2017-11-19 22:48] LABS: ANION GAP 7 (8-16); BLOOD UREA NITROGEN 10 mg/dl (7-18); CALCIUM 8.2 mg/dl (8.4-10.2); CHLORIDE 115 mmol/L (98-107); CO2 21 mmol/L (22-28); GLUCOSE,RANDOM 245 mg/dl (74-106); MAGNESIUM 1.7 mg/dL (1.8-2.4); POTASSIUM 3.3 mmol/L (3.5-5.1); SODIUM 143 mmol/L (136-145)
[2017-11-19 22:53] LABS: CREATININE < 0.8 mg/dl (0.6-1.3)
[2017-11-19] MEDS ORDERED: POTASSIUM CHLORIDE TABS 20 MEQ TABLET.ER (FP) PO ONE (23:45)
[2017-11-19] MEDS ORDERED: MAGNESIUM SULFATE IN WATER 2 GM/50 ML IVPB IVPB ONE (23:45)
[2017-11-19] MEDS ORDERED: PT OWN MED DRAWER 7, Y5N ONE (23:59)
[2017-11-20] MEDS: MAG HYDROX/ALH/SMC/DPHA/LIDO 240 ML MOUTHWASH MM SCH ×3 (00:06→14:52)
[2017-11-20] MEDS: KETOROLAC TROMETHAMINE 15 MG/ML VIAL IVPUSH PRN ×3 (03:02→14:52)
[2017-11-20] MEDS: INSULIN SLIDING SCALE (NOVOLOG) 1 VIAL SQ SCH ×3 (06:07→16:28)
[2017-11-20] MEDS: INSULIN (LEVEMIR) 100 UNITS/ML UNITS SQ SCH (06:12)
[2017-11-20] MEDS: D5-1/2NS+20 MEQ KCL - 20 MEQ/1,000 ML INFUS.BAG IV SCH (07:07)
[2017-11-20] MEDS ORDERED: ONDANSETRON 4 MG/2 ML VIAL IVPUSH PRN (07:21)
[2017-11-20 07:33] LABS: BASO % 0.3 % (0-2.0); EOS % 1.8 % (0-4.5); HEMOGLOBIN 10.6 GM/dL (10.7-15.3); LYMPH % 34.8 % (8-40); MCH 29.3 pg (25.7-33.7); MCHC 33.3 g/dl (32.0-36.0); MEAN PLT VOLUME 8.1 fl (7.5-11.1); MONO % 3.2 % (3.8-10.2); NEUT % 59.9 % (42.8-82.8); PLATELET COUNT 238 K/MM3 (134-434); RBC 3.63 M/mm3 (3.60-5.2); RDW 16.3 % (11.6-15.6)
[2017-11-20 07:58] LABS: ALBUMIN 2.5 g/dl (3.4-5.0); ANION GAP 7 (8-16); BLOOD UREA NITROGEN 14 mg/dL (7-18); CHLORIDE 117 mmol/L (98-107); CO2 24 mmol/L (21-32); CREATININE 0.7 mg/dL (0.55-1.02); GLUCOSE,RANDOM 131 mg/dL (74-106); MAGNESIUM 2.8 mg/dL (1.8-2.4); PHOSPHOROUS 2.6 mg/dL (2.5-4.9); POTASSIUM 3.6 mmol/L (3.5-5.1); SGOT/AST 25 U/L (15-37); SODIUM 148 mmol/L (136-145)
[2017-11-20 08:02] LABS: ALK PHOS 93 U/L (45-117); BILIRUBIN,TOTAL 0.3 mg/dL (0.2-1.0); SGPT/ALT 23 U/L (12-78); TOT PROT 5.3 g/dl (6.4-8.2)
[2017-11-20] MEDS ORDERED: INSULIN SLIDING SCALE (NOVOLOG) 1 VIAL SQ SCH ×2 (10:00→22:00)
[2017-11-20] MEDS ORDERED: HEPARIN NA (PORCINE) 5,000 UNITS/ML 1ML VIAL SQ SCH (10:00)
--- NOTE | 2017-11-20 11:05 | PN ---
Progress Note (short form) - Note Progress Note: Awake, alert c/o difficulty swallowing and unable to eat solid food Vital Signs Period Temp Pulse Resp BP Sys/Rapp Pulse Ox Last 24 Hr 98.1 F-98.7 F 64-86 18-22 120-154/67-87 97-98 PE: AOx3 Neck: supple, No JVD Lungs: CTA Abd: Benign CVS: S1S2 EXt: No edema Neuro: AOx3 CMP Sodium 148 mmol/L (136-145) H 11/20/17 06:00 Potassium 3.6 mmol/L (3.5-5.1) 11/20/17 06:00 Chloride 117 mmol/L (98-107) H 11/20/17 06:00 Carbon Dioxide 24 mmol/L (21-32) 11/20/17 06:00 Anion Gap 7 (8-16) L 11/20/17 06:00 BUN 14 mg/dL (7-18) 11/20/17 06:00 Creatinine 0.7 mg/dL (0.55-1.02) 11/20/17 06:00 Creat Clearance w eGFR > 60 (>60) 11/20/17 06:00 POC Glucometer 161 UNITS (80-120) 11/20/17 05:24 Random Glucose 131 mg/dL (74-106) H 11/20/17 06:00 Hemoglobin A1c % 9.9 % (4.8-6.0) H 11/19/17 05:00 Lactic Acid 2.7 mmol/L (0.0-2.0) H* 11/19/17 06:00 Calcium 8.0 mg/dL (8.5-10.1) L 11/20/17 06:00 Phosphorus 2.6 mg/dL (2.5-4.9) 11/20/17 06:00 Magnesium 2.8 mg/dL (1.8-2.4) H 11/20/17 06:00 Total Bilirubin 0.3 mg/dL (0.2-1.0) 11/20/17 06:00 AST 25 U/L (15-37) 11/20/17 06:00 ALT 23 U/L (12-78) 11/20/17 06:00 Alkaline Phosphatase 93 U/L (45-117) 11/20/17 06:00 Creatine Kinase 166 IU/L (26-192) 11/18/17 17:40 Creatine Kinase Index 3.0 % (0.0-5.0) 11/18/17 17:40 CK-MB (CK-2) 5.137 ng/mL (0.5-3.6) H 11/18/17 17:40 Troponin I 0.02 ng/ml (0.00-0.05) 11/18/17 17:40 Total Protein 5.3 g/dl (6.4-8.2) L 11/20/17 06:00 Albumin 2.5 g/dl (3.4-5.0) L 11/20/17 06:00 Lipase 117 U/L (73-393) 11/17/17 16:30 Serum , Qual Negative 11/17/17 16:30 Current Medications Generic Name Dose Route Start Last Admin Trade Name Freq PRN Reason Stop Dose Admin Heparin Sodium (Porcine) 5,000 unit 11/20/17 10:00 11/20/17 09:05 Heparin - SQ 5,000 unit BID [facility] Administration Potassium Chloride/Dextrose/Sod Cl 20 meq in 1,000 mls @ 75 mls/hr 11/19/17 18 :15 11/20/17 07:07 D5-1/2ns+20 Meq Kcl - IV 75 mls/hr ASDIR [facility] Administration Insulin Aspart 1 vial 11/20/17 10:00 Novolog Vial Sliding Scale - SQ Q4HWA [facility] Protocol Insulin Detemir 10 units 11/21/17 07:00 Levemir Vial SQ 0700 [facility] Ketorolac Tromethamine 15 mg 11/19/17 18:20 11/20/17 08:56 Toradol Injection - IVPUSH 11/24/17 18:19 15 mg Q6H PRN Administration PAIN LEVEL 6-10 Lidocaine/Aluminum/Magnesium/Simeth 5 ml 11/19/17 12:00 11/20/17 06:11 Magic Mouthwash *Sjr Formula* - MM 5 ml Q6HPO [facility] Administration Ondansetron HCl 4 mg 11/20/17 07:21 Zofran Injection IVPUSH Q4H PRN NAUSEA AND/OR VOMITING AP: T1DM with DKA Lactic acidosis GIANCARLO Leukocytosis possibly reactive AMS Hypokalemia DKA resolved White count treding down Levemir 10 in the morning daily On 10.25.17 she was on Levemir 10 units BID, On other admissions she was on 6 to 10 units per day Novolog SS coverage IVF to D5 1/2 NS 20 KCl until food intake is adequate. Pt needs to be on Levemir to prevent redevelopment of DKA, Increase D5 1/2 NS if necessary to maintain blood sugar 120 to 200 Electrolyte replacement as necessary, seen by Nephrology Will f/u Problem List - Problems (1) Ketoacidosis in type I diabetes mellitus Code(s): E10.10 - TYPE 1 DIABETES MELLITUS WITH KETOACIDOSIS WITHOUT COMA (2) Cerebrovascular accident (CVA) Code(s): I63.9 - CEREBRAL INFARCTION, UNSPECIFIED Qualifiers: CVA mechanism: unspecified Qualified Code(s): I63.9 - Cerebral infarction, unspecified (3) Hypokalemia Code(s): E87.6 - HYPOKALEMIA (4) Lactic acid acidosis Code(s): E87.2 - ACIDOSIS
--- NOTE | 2017-11-20 11:39 | PN ---
Progress Note, Physician History of Present Illness: stable doing well no complaints - Current Medication List Current Medications: Active Medications Heparin Sodium (Porcine) (Heparin -) 5,000 unit SQ BID [facility] Last Admin: 11/20/17 09:05 Dose: 5,000 unit Potassium Chloride/Dextrose/Sod Cl (D5-1/2ns+20 Meq Kcl -) 20 meq in 1,000 mls @ 75 mls/hr IV ASDIR [facility] Last Admin: 11/20/17 07:07 Dose: 75 mls/hr Insulin Aspart (Novolog Vial Sliding Scale -) 1 vial SQ TIDAC [facility]; Protocol Insulin Aspart (Novolog Vial Sliding Scale -) 1 vial SQ HS [facility]; Protocol Insulin Detemir (Levemir Vial) 10 units SQ 0700 [facility] Ketorolac Tromethamine (Toradol Injection -) 15 mg IVPUSH Q6H PRN PRN Reason: PAIN LEVEL 6-10 Stop: 11/24/17 18:19 Last Admin: 11/20/17 08:56 Dose: 15 mg Lidocaine/Aluminum/Magnesium/Simeth (Magic Mouthwash *Sjr Formula* -) 5 ml MM Q6HPO [facility] Last Admin: 11/20/17 06:11 Dose: 5 ml Ondansetron HCl (Zofran Injection) 4 mg IVPUSH Q4H PRN PRN Reason: NAUSEA AND/OR VOMITING - Objective Vital Signs: Vital Signs Temperature 98.1 F 11/20/17 06:04 Pulse Rate 64 11/20/17 06:04 Respiratory Rate 18 11/20/17 06:04 Blood Pressure 124/74 11/20/17 06:04 O2 Sat by Pulse Oximetry (%) 98 11/19/17 20:06 Constitutional: Yes: No Distress, Calm Cardiovascular: Yes: Regular Rate and Rhythm Respiratory: Yes: Regular, CTA Bilaterally Gastrointestinal: Yes: Normal Bowel Sounds, Soft Musculoskeletal: Yes: WNL Extremities: Yes: WNL Neurological: Yes: Alert, Oriented Psychiatric: Yes: Alert, Oriented Labs: CBC, BMP 11/20/17 06:00 11/20/17 06:00 INR, PTT INR 0.98 (0.82-1.09) 11/17/17 16:30 Assessment/Plan Problem List - Problem (1) Diabetes mellitus, insulin dependent (IDDM), uncontrolled Code(s): E10.65 - TYPE 1 DIABETES MELLITUS WITH HYPERGLYCEMIA Qualifiers: Diabetes mellitus complication status: with ketoacidosis Assessment/Plan IDDM now with recurrent DKA Lactic acidosis AGMA in the setting of above GIANCARLO likely pre renal azotemia Leukocytosis possibly reactive Resolving AMS in the setting of DKA plan continue current mgmt patient needs to control blood sugar well no other issues patient improving
--- NOTE | 2017-11-20 12:25 | PN ---
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 Full fluids ordered and tolerated, including yogurt. Pt seen ewatingb in bed, HOB only to 45 degrees. Pt refusing to get OOB for meals, per pt "awaiting PT". F/u by GI Consider pureed diet, thinned out with gravy Glucerna OOB for meals and for 1 hour after meals. Eat slowly, alternating puree/full fluids with thin liquid, to facilitate esophageal emptying. Monitor tolerance. Reviewed with pt and staff
[2017-11-20] MEDS ORDERED: PT OWN MED DRAWER 7, Y5N ONE (13:45)
[2017-11-20 14:44] VITALS: BP 115/69; PULSE 71; TEMP 97.3
--- NOTE | 2017-11-20 14:53 | PN ---
Progress Note, Physician History of Present Illness: Awake, alert, oriented. Appears comfortable. Tolerating current diet. Blood glucose is under control. Reports no nausea, dyspepsia, bloating. Patient's father at bedside. - Current Medication List Current Medications: Active Medications Heparin Sodium (Porcine) (Heparin -) 5,000 unit SQ BID [facility] Last Admin: 11/20/17 09:05 Dose: 5,000 unit Potassium Chloride/Dextrose/Sod Cl (D5-1/2ns+20 Meq Kcl -) 20 meq in 1,000 mls @ 75 mls/hr IV ASDIR [facility] Last Admin: 11/20/17 07:07 Dose: 75 mls/hr Insulin Aspart (Novolog Vial Sliding Scale -) 1 vial SQ TIDAC [facility]; Protocol Last Admin: 11/20/17 11:43 Dose: Not Given Insulin Aspart (Novolog Vial Sliding Scale -) 1 vial SQ HS [facility]; Protocol Insulin Detemir (Levemir Vial) 10 units SQ 0700 [facility] Ketorolac Tromethamine (Toradol Injection -) 15 mg IVPUSH Q6H PRN PRN Reason: PAIN LEVEL 6-10 Stop: 11/24/17 18:19 Last Admin: 11/20/17 08:56 Dose: 15 mg Lidocaine/Aluminum/Magnesium/Simeth (Magic Mouthwash *Sjr Formula* -) 5 ml MM Q6HPO [facility] Last Admin: 11/20/17 06:11 Dose: 5 ml Ondansetron HCl (Zofran Injection) 4 mg IVPUSH Q4H PRN PRN Reason: NAUSEA AND/OR VOMITING - Objective Vital Signs: Vital Signs Temperature 97.3 F L 11/20/17 14:43 Pulse Rate 71 11/20/17 14:43 Respiratory Rate 18 11/20/17 14:43 Blood Pressure 115/69 11/20/17 14:43 O2 Sat by Pulse Oximetry (%) 98 11/20/17 09:00 Constitutional: Yes: No Distress, Calm Gastrointestinal: Yes: Normal Bowel Sounds, Soft. No: Distention, Melena, Rectal Bleeding, Tenderness, Tenderness, Epigastrium, Tenderness, Rebound, Vomiting Neurological: Yes: Alert, Oriented Labs: CBC, BMP 11/20/17 06:00 11/20/17 06:00 INR, PTT INR 0.98 (0.82-1.09) 11/17/17 16:30 Laboratory Last Values WBC 9.0 K/mm3 (4.0-10.0) D 11/20/17 06:00 RBC 3.63 M/mm3 (3.60-5.2) 11/20/17 06:00 Hgb 10.6 GM/dL (10.7-15.3) L 11/20/17 06:00 Hct 32.0 % (32.4-45.2) L 11/20/17 06:00 MCV 88.0 fl (80-96) 11/20/17 06:00 MCH 29.3 pg (25.7-33.7) 11/20/17 06:00 MCHC 33.3 g/dl (32.0-36.0) 11/20/17 06:00 RDW 16.3 % (11.6-15.6) H 11/20/17 06:00 Plt Count 238 K/MM3 (134-434) D 11/20/17 06:00 MPV 8.1 fl (7.5-11.1) 11/20/17 06:00 Neutrophils % 59.9 % (42.8-82.8) D 11/20/17 06:00 Neutrophils % (Manual) No Result Required. 11/17/17 20:55 Band Neutrophils % 14.0 % 11/17/17 16:30 Lymphocytes % 34.8 % (8-40) D 11/20/17 06:00 Lymphocytes % (Manual) 12.0 % (8-40) D 11/17/17 16:30 Monocytes % 3.2 % (3.8-10.2) L 11/20/17 06:00 Monocytes % (Manual) 3 % (3.8-10.2) L 11/17/17 16:30 Eosinophils % 1.8 % (0-4.5) D 11/20/17 06:00 Eosinophils % (Manual) 0.0 % (0-4.5) 11/17/17 16:30 Basophils % 0.3 % (0-2.0) 11/20/17 06:00 Basophils % (Manual) 0.0 % (0-2.0) 11/17/17 16:30 Nucleated RBC % 0 % (0-0) 11/20/17 06:00 Metamyelocytes 1 % (0-2) 11/17/17 16:30 Differential Comment 11/17/17 20:55 Hypochromia 1+ 11/17/17 16:30 Macrocytosis 1+ 11/17/17 16:30 PT with INR 11.10 SEC (9.7-13.0) 11/17/17 16:30 INR 0.98 (0.82-1.09) 11/17/17 16:30 PTT (Actin FS) 22.6 SECONDS (26.9-34.4) L 11/17/17 16:30 Anticoagulation Therapy No Result Required. 11/18/17 01:50 Puncture Site Right radial 11/18/17 01:50 ABG pH 7.33 (7.35-7.45) L 11/18/17 01:50 ABG pCO2 at Pt Temp 18.1 mmHg (35-45) L* D 11/18/17 01:50 ABG pO2 at Pt Temp 61.5 mmHg (80-100) L D 11/18/17 01:50 ABG HCO3 9.2 meq/L (22-26) L* 11/18/17 01:50 ABG O2 Sat (Measured) 94.2 % (90-98.9) 11/18/17 01:50 ABG O2 Content 14.4 % vol (15-22) L 11/18/17 01:50 ABG Base Excess -15.1 meq/l (-2-2) L* 11/18/17 01:50 Atul Test Positive 11/18/17 01:50 VBG pH 7.00 (7.32-7.42) L* D 11/17/17 20:50 POC VBG pCO2 24.1 mmHg (38-52) L 11/17/17 20:50 POC VBG pO2 57.8 mmHg (28-48) H D 11/17/17 20:50 Mixed VBG HCO3 5.6 meq/L (19-25) L* 11/17/17 20:50 O2 Delivery Device No Result Required. 11/18/17 01:50 Oxygen Flow Rate No 11/18/17 01:50 Vent Mode No Result Required. 11/18/17 01:50 Vent Rate No Result Required. 11/18/17 01:50 Mechanical Rate No Result Required. 11/18/17 01:50 Pressure Support Vent No Result Required. 11/18/17 01:50 Sodium 148 mmol/L (136-145) H 11/20/17 06:00 Potassium 3.6 mmol/L (3.5-5.1) 11/20/17 06:00 Chloride 117 mmol/L (98-107) H 11/20/17 06:00 Carbon Dioxide 24 mmol/L (21-32) 11/20/17 06:00 Anion Gap 7 (8-16) L 11/20/17 06:00 BUN 14 mg/dL (7-18) 11/20/17 06:00 Creatinine 0.7 mg/dL (0.55-1.02) 11/20/17 06:00 Creat Clearance w eGFR > 60 (>60) 11/20/17 06:00 POC Glucometer 135 UNITS (80-120) 11/20/17 10:21 Random Glucose 131 mg/dL (74-106) H 11/20/17 06:00 Hemoglobin A1c % 9.9 % (4.8-6.0) H 11/19/17 05:00 Lactic Acid 2.7 mmol/L (0.0-2.0) H* 11/19/17 06:00 Calcium 8.0 mg/dL (8.5-10.1) L 11/20/17 06:00 Phosphorus 2.6 mg/dL (2.5-4.9) 11/20/17 06:00 Magnesium 2.8 mg/dL (1.8-2.4) H 11/20/17 06:00 Total Bilirubin 0.3 mg/dL (0.2-1.0) 11/20/17 06:00 AST 25 U/L (15-37) 11/20/17 06:00 ALT 23 U/L (12-78) 11/20/17 06:00 Alkaline Phosphatase 93 U/L (45-117) 11/20/17 06:00 Creatine Kinase 166 IU/L (26-192) 11/18/17 17:40 Creatine Kinase Index 3.0 % (0.0-5.0) 11/18/17 17:40 CK-MB (CK-2) 5.137 ng/mL (0.5-3.6) H 11/18/17 17:40 Troponin I 0.02 ng/ml (0.00-0.05) 11/18/17 17:40 Total Protein 5.3 g/dl (6.4-8.2) L 11/20/17 06:00 Albumin 2.5 g/dl (3.4-5.0) L 11/20/17 06:00 Lipase 117 U/L (73-393) 11/17/17 16:30 Serum , Qual Negative 11/17/17 16:30 Urine Color Straw 11/17/17 17:00 Urine Appearance Clear 11/17/17 17:00 Urine pH 5.0 (5.0-8.0) D 11/17/17 17:00 Ur Specific [place] 1.020 (1.001-1.035) 11/17/17 17:00 Urine Protein 1+ (NEGATIVE) H 11/17/17 17:00 Urine Glucose (UA) 3+ (NEGATIVE) H 11/17/17 17:00 Urine Ketones 2+ (NEGATIVE) H 11/17/17 17:00 Urine Blood Negative (NEGATIVE) 11/17/17 17:00 Urine Nitrite Negative (NEGATIVE) 11/17/17 17:00 Urine Bilirubin Negative (<2.0 mg/dL) 11/17/17 17:00 Urine Urobilinogen Negative mg/dL (0.2-1.0) 11/17/17 17:00 Ur Leukocyte Esterase Negative (NEGATIVE) 11/17/17 17:00 Urine WBC (Auto) 1 /hpf (3-5) 11/17/17 17:00 Urine RBC (Auto) <1 /hpf (0-3) 11/17/17 17:00 Ur Epithelial Cells Rare /HPF (FEW) 11/17/17 17:00 Urine Bacteria Rare /hpf (NONE SEEN) 11/17/17 17:00 Urine Mucus Rare 11/17/17 17:00 Opiates Screen Positive ng/ml (WAERVZ=389) 11/17/17 17:00 Methadone Screen Negative ng/ml (ROBQOH=744) 11/17/17 17:00 Barbiturate Screen Negative ng/ml (HKXAOV=132) 11/17/17 17:00 Phencyclidine Screen Negative ng/ml (CUTOFF=25) 11/17/17 17:00 Ur Amphetamines Screen Negative ng/ml (XWSKAB=128) 11/17/17 17:00 MDMA (Ecstasy) Screen Negative ng/ml (PLUIZW=202) 11/17/17 17:00 Benzodiazepines Screen Negative ng/ml (LLGGHW=376) 11/17/17 17:00 Cocaine Screen Negative ng/ml (ZEONBL=029) 11/17/17 17:00 U Marijuana (THC) Screen Negative ng/ml (CUTOFF=50) 11/17/17 17:00 Acetone, Qual Positive large 3+ (NEGATIVE) H 11/17/17 16:30 Problem List - Problems (1) Dysphagia Code(s): R13.10 - DYSPHAGIA, UNSPECIFIED Qualifiers: Dysphagia type: unspecified Qualified Code(s): R13.10 - Dysphagia, unspecified Assessment/Plan Clinically much better. Abdominal symptoms have resolved. Tolerating soft diet. Scheduled for dysphagia have alleviation at [facility] in January. Okay to discharge from GI perspective. Discussed with the patient and her father.
--- NOTE | 2017-11-20 17:01 | PN ---
Progress Note (short form) - Note Progress Note: Renal Follow up for GIANCARLO Pt seen and examined at the bedside no acute complaints continues to have tooth ache. no N/V/D making urine tolerating oral diet Vital Signs Temperature 97.3 F L 11/20/17 14:43 Pulse Rate 71 11/20/17 14:43 Respiratory Rate 18 11/20/17 14:43 Blood Pressure 115/69 11/20/17 14:43 O2 Sat by Pulse Oximetry (%) 98 11/20/17 09:00 Intake & Output 11/17/17 11/18/17 11/19/17 11/20/17 23:59 23:59 23:59 23:59 Intake Total 3500 2783 1050 Output Total 200 2290 900 Balance 3300 493 150 Weight 54.431 kg 50 kg 49.895 kg NAD awake and alert MMM RRR CTA no LE edema CBC, BMP 11/20/17 06:00 11/20/17 06:00 Current Medications Heparin Sodium (Porcine) (Heparin -) 5,000 unit SQ BID [facility] Last Admin: 11/20/17 09:05 Dose: 5,000 unit Potassium Chloride/Dextrose/Sod Cl (D5-1/2ns+20 Meq Kcl -) 20 meq in 1,000 mls @ 75 mls/hr IV ASDIR [facility] Last Admin: 11/20/17 07:07 Dose: 75 mls/hr Insulin Aspart (Novolog Vial Sliding Scale -) 1 vial SQ TIDAC [facility]; Protocol Last Admin: 11/20/17 16:28 Dose: Not Given Insulin Aspart (Novolog Vial Sliding Scale -) 1 vial SQ HS [facility]; Protocol Insulin Detemir (Levemir Vial) 10 units SQ 0700 [facility] Ketorolac Tromethamine (Toradol Injection -) 15 mg IVPUSH Q6H PRN PRN Reason: PAIN LEVEL 6-10 Stop: 11/24/17 18:19 Last Admin: 11/20/17 14:52 Dose: 15 mg Lidocaine/Aluminum/Magnesium/Simeth (Magic Mouthwash *Sjr Formula* -) 5 ml MM Q6HPO [facility] Last Admin: 11/20/17 14:52 Dose: 5 ml Ondansetron HCl (Zofran Injection) 4 mg IVPUSH Q4H PRN PRN Reason: NAUSEA AND/OR VOMITING 47 year old woman with PMhx fo IDDM with gastroparesis, CVA, brought in by EMS for altered mental status and found to have DKA with GIANCARLO #GIANCARLO in setting of DKA secondary to intravascular volume depletion Renal function now improved and stable over 48 hours on IVF but can be d/c if pt tolerating oral diet and planned for D/c on IV Toradol for tooth ache, advised that she needs to maintain good oral hydration and maintain her blood sugars to ensure the renal function does not worsen continue insulin as per primary and endocrine Will sign off case at this time please call with any questions or concerns Joel Concepcion DO
--- NOTE | 2017-11-20 17:22 | DS ---
Physical Examination Vital Signs: Vital Signs Temperature 97.3 F L 11/20/17 14:43 Pulse Rate 71 11/20/17 14:43 Respiratory Rate 18 11/20/17 14:43 Blood Pressure 115/69 11/20/17 14:43 O2 Sat by Pulse Oximetry (%) 98 11/20/17 09:00 Constitutional: Yes: No Distress HENT: Yes: Atraumatic Neck: Yes: Supple Cardiovascular: Yes: Regular Rate and Rhythm Respiratory: Yes: CTA Bilaterally Gastrointestinal: Yes: Normal Bowel Sounds Extremities: Yes: WNL Neurological: Yes: Alert, Oriented Labs: CBC, BMP 11/20/17 06:00 11/20/17 06:00 Discharge Summary Reason For Visit: DIABETIC KETOACIDOSIS Current Active Problems GIANCARLO (acute kidney injury) (Acute) Hypokalemia (Acute) Ketoacidosis in type I diabetes mellitus (Acute) - Instructions - Home Medications Comprehensive Discharge Medication List: Ambulatory Orders Unobtainable 11/17/17 ri home
[2017-11-21] MEDS ORDERED: INSULIN (LEVEMIR) 100 UNITS/ML UNITS SQ SCH (07:00)
== END 2017-11-20 18:35 | disposition home or self-care (01) | DRG 637 ==
LOC: JER 15:27 → JERBED 17:51 → JICU 11-18 01:33 → J7W 11-19 14:57
PROVIDERS: ADMIT Internal Medicine; ATTEND Internal Medicine
PROC: 06HM33Z Insertion of Infusion Device into Right Femoral Vein, Percutaneous Approach (ICD-10-PCS; principal; 2017-11-17)
PROC: B51BZZA Fluoroscopy of Right Lower Extremity Veins, Guidance (ICD-10-PCS; 2017-11-17)
PROC: B54BZZA Ultrasonography of Right Lower Extremity Veins, Guidance (ICD-10-PCS; 2017-11-17)
DX: E10.10 Type 1 diabetes mellitus with ketoacidosis without coma (principal); A41.9 Sepsis, unspecified organism; R65.21 Severe sepsis with septic shock; G93.41 Metabolic encephalopathy; I69.354 Hemiplegia and hemiparesis following cerebral infarction affecting left non-dominant side; N17.9 Acute kidney failure, unspecified; E87.0 Hyperosmolality and hypernatremia; F12.10 Cannabis abuse, uncomplicated; Z79.4 Long term (current) use of insulin; E78.5 Hyperlipidemia, unspecified; E83.39 Other disorders of phosphorus metabolism; E87.6 Hypokalemia; E86.0 Dehydration; M54.5 Low back pain; R13.10 Dysphagia, unspecified; R62.7 Adult failure to thrive; K22.2 Esophageal obstruction; E10.43 Type 1 diabetes mellitus with diabetic autonomic (poly)neuropathy; K31.84 Gastroparesis; K44.9 Diaphragmatic hernia without obstruction or gangrene
CPT/HCPCS: 36415; 36600; 70450-TC; 71045-TC-FY; 74220-TC-FY; 74230-TC-FY; 80048; 80053; 80307; 81003; 81015; 82009; 82550; 82553; 82803; 82962; 83036; 83605; 83690; 83735; 84100; 84484; 84703; 85025; 85027; 85610; 85730; 87040; 87086; 92611-GN; 93005; 93010; 97116-GP; 97161-GP; 99285-25; J0131; J1644; J7030

== ENCOUNTER 2018-01-15 07:14 | Day surgery (SDC) | payer OTHER ==
[2018-01-14 11:19] VITALS: BMI 22.3
[2018-01-15] MEDS ORDERED: LIDOCAINE HCL/PF 2% SDV 5ML VIAL ONE (07:17)
[2018-01-15] MEDS ORDERED: PROPOFOL 20 ML ONE ×2 (07:17)
[2018-01-15 11:28] VITALS: TEMP 97.9
[2018-01-15 11:30] VITALS: BP 104/64; PULSE 78
== END 2018-01-15 10:30 | disposition home or self-care (01) ==
LOC: FASU-ENDO 07:14
PROVIDERS: ATTEND Internal Medicine Gastroenterology
PROC: 0D738ZZ Dilation of Lower Esophagus, Via Natural or Artificial Opening Endoscopic (ICD-10-PCS; principal; 2018-01-15 09:01)
DX: K22.2 Esophageal obstruction (principal); K44.9 Diaphragmatic hernia without obstruction or gangrene
CPT/HCPCS: 82962

== ENCOUNTER 2018-01-31 07:25 | Emergency (ER) | payer OTHER ==
[2018-01-31 07:32] VITALS: BP 115/74; PULSE 81; TEMP 99; BMI 21.4
--- NOTE | 2018-01-31 07:34 | PDOC ---
History of Present Illness - General Chief Complaint: Pain, Acute Stated Complaint: LEFT SHOULDER PAIN Time Seen by Provider: 01/31/18 07:28 History Source: Patient Exam Limitations: No Limitations - History of Present Illness Initial Comments: 47 yo F history DM presents with L shoulder pain that started just [employer]. She states that she was out walking her dog when the dog became distracted by something and started to run towards it, pulling her down to the ground. She fell on her left side, and now complains of L shoulder pain. She has scrapes to the L shoulder, knee, and ankle, and a small bruise to the R hand. No weakness, numbness. She has pain to the L shoulder from the base of her neck radiating down the arm. Worse with movement, better with rest. She took ibuprofen [employer]. Past History - Past Medical History Allergies/Adverse Reactions: Allergies Allergy/AdvReac Type Severity Reaction Status Date / Time No Known Allergies Allergy Verified 01/31/18 07:26 Home Medications: Ambulatory Orders Aspirin [ASA -] 325 mg PO HS 11/20/17 Atorvastatin Ca [Lipitor] 10 mg PO HS 11/20/17 Insulin (Levemir) [Levemir Vial] 10 unit SQ HS 11/20/17 Insulin (Novolog) [Novolog -] 7 units SQ AC 11/20/17 Pantoprazole Sodium [Protonix] 40 mg PO BID 11/20/17 Ibuprofen [Motrin -] 600 mg PO TID PRN #21 tablet 01/31/18 Methocarbamol [Robaxin -] 500 mg PO BID PRN #14 tablet 01/31/18 Anemia: No Asthma: No Cancer: No Cardiac Disorders: No CVA: Yes (JUL 2017) COPD: No CHF: No Dementia: No Diabetes: Yes (IDDM) GI Disorders: Yes (DYSPHAGIA) Disorders: No HTN: No Hypercholesterolemia: Yes Liver Disease: No Seizures: No Thyroid Disease: No - Surgical History Abdominal Surgery: No Appendectomy: No Cardiac Surgery: No Cholecystectomy: Yes (AGE 19) Lung Surgery: No Neurologic Surgery: No Orthopedic Surgery: Yes (L shoulder cyst removed) - Immunization History Td Vaccination: Yes Immunization Up to Date: Yes - Suicide/Smoking/Psychosocial Hx Smoking Status: Yes Smoking History: Current every day smoker Years of Tobacco Use: 15 Have you smoked in the past 12 months: Yes Number of Cigarettes Smoked Daily: 8 Information on smoking cessation initiated: Yes 'Breaking Loose' booklet given: 01/31/18 Hx Alcohol Use: No Drug/Substance Use Hx: No Substance Use Type: Marijuana Hx Substance Use Treatment: No Review of Systems - Review of Systems Able to Perform ROS?: Yes Comments:: GENERAL/CONSTITUTIONAL: No fever or chills. No weakness. HEAD, EYES, EARS, NOSE AND THROAT: No change in vision. No ear pain or discharge. No sore throat. CARDIOVASCULAR: No chest pain or shortness of breath. RESPIRATORY: No cough, wheezing, or hemoptysis. GASTROINTESTINAL: No nausea, vomiting, diarrhea or constipation. GENITOURINARY: No dysuria, frequency, or change in urination. MUSCULOSKELETAL: +L shoulder pain. No neck or back pain. SKIN: No rash NEUROLOGIC: No headache, vertigo, loss of consciousness, or change in strength/ sensation. ENDOCRINE: No increased thirst. No abnormal weight change. HEMATOLOGIC/LYMPHATIC: No anemia, easy bleeding, or history of blood clots. ALLERGIC/IMMUNOLOGIC: No hives or skin allergy. *Physical Exam - Vital Signs Last Vital Signs Temp Pulse Resp BP Pulse Ox 99.0 F 81 18 115/74 97 01/31/18 07:26 01/31/18 07:26 01/31/18 07:26 01/31/18 07:26 01/31/18 07:26 - Physical Exam Comments: GENERAL: Awake, alert, and fully oriented, in no acute distress HEAD: No signs of trauma EYES: PERRLA, EOMI, sclera anicteric, conjunctiva clear ENT: Auricles normal inspection, hearing grossly normal, nares patent, oropharynx clear without exudates. Moist mucosa NECK: Normal ROM, supple, no lymphadenopathy, JVD, or masses LUNGS: Breath sounds equal, clear to auscultation bilaterally. No wheezes, and no crackles HEART: Regular rate and rhythm, normal S1 and S2, no murmurs, rubs or gallops ABDOMEN: Soft, nontender, normoactive bowel sounds. No guarding, no rebound. No masses MUSCULOSKELETAL: +Muscle spasm to L trapezius. +Tenderness to percussion of the L clavicle. +Tenderness at the glenohumeral joint with overlying abrasions. FROM of the L shoulder. +Small ecchymosis to the R thumb at the base of the 1st metacarpal. No pain on axial load, no snuffbox tenderness. Remainder of extremities with normal range of motion, no edema. No clubbing or cyanosis. No cords, erythema. NEUROLOGICAL: Cranial nerves II through XII grossly intact. Normal speech, normal gait SKIN: Warm, Dry, normal turgor, no rashes. +Abrasions to L shoulder, L knee, and L ankle. Medical Decision Making - Medical Decision Making Pt with clavicle fracture and trapezius spasm. No evidence of neurovascular compromise. Will place in splint. NSAIDs and robaxin for pain and muscle spasm. Stable for DC home with ortho f/u. *DC/Admit/Observation/Transfer Diagnosis at time of Disposition: Muscle spasm Clavicle fracture Qualifiers: Encounter type: initial encounter Clavicle location: lateral end Fracture type : closed Fracture alignment: displaced Laterality: left Qualified Code(s): S42.032A - Displaced fracture of lateral end of left clavicle, initial encounter for closed fracture - Discharge Dispostion Disposition: HOME Condition at time of disposition: Stable Decision to Admit order: No - Prescriptions Prescriptions: Ibuprofen [Motrin -] 600 mg PO TID PRN #21 tablet PRN Reason: Pain Methocarbamol [Robaxin -] 500 mg PO BID PRN #14 tablet PRN Reason: Muscle Spasms - Referrals Referrals: Flaco Stubbs MD [Staff Physician] - - Patient Instructions Printed Discharge Instructions: How to Use a Sling, DI for Clavicle Fracture- Adult - Post Discharge Activity
[2018-01-31] MEDS ORDERED: METHOCARBAMOL 500 MG TABLET PO ONE (07:49)
[2018-01-31] MEDS ORDERED: DIPHTH,PERTUSS(ACELL),TET 0.5 ML DISP.SYRIN IM ONE (07:49)
[2018-01-31] MEDS ORDERED: METHOCARBAMOL 500 MG TABLET ONE (08:13)
== END 2018-01-31 09:25 | disposition home or self-care (01) ==
LOC: FER 07:25
PROC: 2W3DX1Z Immobilization of Left Lower Arm using Splint (ICD-10-PCS; principal; 2018-01-31)
PROC: 3E0234Z Introduction of Serum, Toxoid and Vaccine into Muscle, Percutaneous Approach (ICD-10-PCS; 2018-01-31)
DX: S42.321A Displaced transverse fracture of shaft of humerus, right arm, initial encounter for closed fracture (principal); M62.838 Other muscle spasm; W18.39XA Other fall on same level, initial encounter; Y93.K1 Activity, walking an animal; Y92.9 Unspecified place or not applicable; E11.9 Type 2 diabetes mellitus without complications; Z79.4 Long term (current) use of insulin; E78.00 Pure hypercholesterolemia, unspecified; Z86.73 Personal history of transient ischemic attack (TIA), and cerebral infarction without residual deficits
CPT/HCPCS: 73000-TC-LT-FY; 73030-TC-LT-FY; 73060-TC-LT-FY; 73130-TC-RT-FY; 90715; 99282-25

== ENCOUNTER 2018-06-16 22:24 | Inpatient (IN) | payer OTHER ==
--- NOTE | 2018-06-16 22:34 | PDOC ---
History of Present Illness - General Chief Complaint: Blood Sugar Problem Stated Complaint: HYPERGLYCEMIA Time Seen by Provider: 06/16/18 22:34 - History of Present Illness Initial Comments: 06/16/18 23:30 The patient is a 48 year old female with a history of HTN, CVA, HLD, IDDM, DKA, Dysphagia, Gastroparesis who presents for evaluation of elevated blood sugars. Per EMS, the patient was found on the ground minimally responsive with a blood sugar of greater than 500. The patient has had multiple presentations in the past for DKA. The patient notes that she fell on her back today and reports back pain. She notes nausea and vomiting and reports shortness of breath, chills, chest pain, abdominal pain, fatigue, increased thirst, increased urination with de la rosa positive ROS. The patient notes that she feels similar to her prior presentations for DKA as well. The patient is somewhat a poor historian. Past History - Past Medical History Allergies/Adverse Reactions: Allergies Allergy/AdvReac Type Severity Reaction Status Date / Time No Known Allergies Allergy Verified 06/16/18 22:40 Home Medications: Ambulatory Orders Aspirin [ASA -] 325 mg PO HS 11/20/17 Atorvastatin Ca [Lipitor] 10 mg PO HS 11/20/17 Insulin (Levemir) [Levemir Vial] 25 unit SQ HS 11/20/17 Insulin (Novolog) [Novolog -] See Protocol SQ AC PRN 11/20/17 Pantoprazole Sodium [Protonix] 40 mg PO BID 11/20/17 Ibuprofen [Motrin -] 600 mg PO TID PRN #21 tablet 01/31/18 Methocarbamol [Robaxin -] 500 mg PO BID PRN #14 tablet 01/31/18 Anemia: No Asthma: No Cancer: No Cardiac Disorders: No CVA: Yes (JUL 2017) COPD: No CHF: No Dementia: No Diabetes: Yes (IDDM) GI Disorders: Yes (DYSPHAGIA) Disorders: No HTN: No Hypercholesterolemia: Yes Liver Disease: No Seizures: No Thyroid Disease: No - Surgical History Abdominal Surgery: No Appendectomy: No Cardiac Surgery: No Cholecystectomy: Yes (AGE 19) Lung Surgery: No Neurologic Surgery: No Orthopedic Surgery: Yes (L shoulder cyst removed) - Immunization History Td Vaccination: Yes Immunization Up to Date: Yes - Suicide/Smoking/Psychosocial Hx Smoking Status: Yes Smoking History: Current every day smoker Years of Tobacco Use: 15 Have you smoked in the past 12 months: Yes Number of Cigarettes Smoked Daily: 8 'Breaking Loose' booklet given: 01/31/18 Hx Alcohol Use: No Drug/Substance Use Hx: No Substance Use Type: Marijuana Hx Substance Use Treatment: No Review of Systems - Review of Systems Comments:: 06/16/18 23:35 Constitutional: Chills, fatigue, malaise HEENT: No Rhinorrhea, nasal congestion, visual changes Cardiovascular: Chest pain, palpitations, lightheadedness. No Syncope Respiratory: SOB, No Cough, Hemoptysis, Gastrointestinal: Abdominal pain, Nausea, Vomiting, No Constipation, Diarrhea, Melena Genitourinary: Increased frequency. No Dysuria, Urgency, Hesitancy, Hematuria, Flank pain Musculoskeletal: Myalgia, arthralgia Skin: No rashes, itching, bruising, pallor Neurologic: Headache, No Dizziness, Numbness, Weakness, or Tingling Psychiatric: No Hallucinations. No SI or HI *Physical Exam - Physical Exam Comments: 06/16/18 23:36 General Appearance: Nourished. In Apparent Distress HEENT: EOMI, UMA. No Pharyngeal Erythema, Tonsillar Exudate, Tonsillar Erythema Neck: No Cervical Lymphadenopathy or C-spine tenderness. Full ROM Respiratory/Chest: Lungs Clear, Normal Breath Sounds. Tachypnic No Crackles, Rales, Rhonchi, Wheezing Cardiovascular: Regular Rhythm, Regular Rate. No Murmur, Gallops, Rubs Gastrointestinal/Abdominal: Normal Bowel Sounds, Soft. 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 ED Treatment Course - LABORATORY CBC & Chemistry Diagram: 06/16/18 23:50 06/17/18 02:30 Medical Decision Making - Critical Care Time Total Critical Care Time (minutes): 90 Critical Care Statement: The care of this patient involved high complexity decision making to prevent further life threatening deterioration of the patient 's condition and/or to evaluate & treat vital organ system(s) failure or risk of failure. - Medical Decision Making 06/17/18 00:02 The patient is a 48 year old female with a history of HTN, CVA, HLD, IDDM, DKA, Dysphagia, Gastroparesis who presents for evaluation of elevated blood sugars. Differential includes but is not limited to: DKA, Hyperglycemia, Intracranial process, Infectious, Metabolic Derangement. The patient was noted to have coffee ground emesis on exam here in the ED. Her symptoms are likely due to DKA. We will obtain a cbc, cmp, troponin, blood cultures, ua, urine cultures, vbg, acetone, chest plain film, head and c-spine CT to evaluate further. We will treat with iv fluids, zofran, protonix in the meantime. We will continue to closely monitor and reassess while here in the ED. 06/17/18 04:38 CBC demonstrates an elevated wbc to 16 and a hgb of 7.8. CMP demonstrates a potassium of 4.0, glucose of 717, anion gap of 24, positive acetones consistent with DKA. Given the patient's anemia in the setting of coffee ground emesis, we will transfuse the patient with 1 unit PRBC. Chest plain film is unremarkable. Head and c-spine CT is unremarkable as preliminarily read by our reconciliation manager radiologist. VBG demonstrates a PH of 7.02. We will treat the patient with a bolus of 6 units of insulin and place the patient on an insulin drip. We will repleat the patient's potassium with 3 runs of potassium. We will treat the patient with vanc and zosyn for antibiotic coverage as well. The patient will require ICU admission for further management. We discussed the case with the ICU team who accepted the patient for admission. We discussed the case with the admitting team who accepted the patient for admission. *DC/Admit/Observation/Transfer Diagnosis at time of Disposition: DKA (diabetic ketoacidoses) Qualifiers: Diabetes mellitus type: other specified (including MARITO) Diabetes mellitus complication detail: without coma Qualified Code(s): E13.10 - Other specified diabetes mellitus with ketoacidosis without coma - Discharge Dispostion Condition at time of disposition: Guarded Decision to Admit order: Yes - Referrals - Patient Instructions - Post Discharge Activity
[2018-06-16] MEDS ORDERED: ONDANSETRON 4 MG/2 ML VIAL IVPUSH ONE (22:41)
[2018-06-16] MEDS ORDERED: FAMOTIDINE 20 MG/50 ML IVPB 20 MG/50 ML MG IVPB ONE (22:41)
[2018-06-16] MEDS ORDERED: SODIUM CHLORIDE 1,000 ML IV STA ×3 (22:41→23:55)
[2018-06-16] MEDS ORDERED: ONDANSETRON 4 MG/2 ML VIAL ONE (22:50)
[2018-06-16] MEDS ORDERED: PANTOPRAZOLE SODIUM 40 MG VIAL IVPUSH ONE (23:17)
[2018-06-16] MEDS ORDERED: ACETAMINOPHEN 1000 MG/100 ML VIAL (NON FORMULARY) IVPB ONE (23:23)
[2018-06-16 23:33] LABS: URINE APPEARANCE CLEAR; URINE BILIRUBIN NEGATIVE (<2.0 mg/dL); URINE COLOR COLORLESS; URINE GLUCOSE (UA) 3+ (NEGATIVE); URINE KETONE 2+ (NEGATIVE); URINE LEUK ESTERASE NEGATIVE (NEGATIVE); URINE NITRITE NEGATIVE (NEGATIVE); URINE PROTEIN NEGATIVE (NEGATIVE); URINE UROBILINOGEN NEGATIVE mg/dL (0.2-1.0)
[2018-06-16] MEDS ORDERED: PANTOPRAZOLE SODIUM 80 MG/200 ML BAG IVPB ONE (23:33)
[2018-06-16] MEDS ORDERED: ACETAMINOPHEN INJECTION 100 ML IVPB ONE (23:33)
[2018-06-17 00:12] LABS: VENOUS PO2 58.9 mmHg (28-48)
[2018-06-17 00:13] LABS: BASO % 1.3 % (0-2.0); HEMATOCRIT 25.3 % (32.4-45.2); HEMOGLOBIN 7.8 GM/dL (10.7-15.3); LYMPH % 7.7 % (8-40); MCH 27.4 pg (25.7-33.7); MCHC 30.7 g/dl (32.0-36.0); MEAN CELL VOLUME 89.1 fl (80-96); MEAN PLT VOLUME 8.1 fl (7.5-11.1); MONO % 4.1 % (3.8-10.2); NEUT % 86.9 % (42.8-82.8); PLATELET COUNT 367 K/MM3 (134-434); RBC 2.83 M/mm3 (3.60-5.2); RDW 18.8 % (11.6-15.6); WHITE BLOOD COUNT 16.1 K/mm3 (4.0-10.0)
[2018-06-17] MEDS ORDERED: VANCOMYCIN 1,000 MG in DEXTROSE 5%-WATER - 250 ML IVPB ONE (00:25)
[2018-06-17] MEDS ORDERED: PIPERACILLIN/TAZOB 4.5 GM 4.5 GM in DEXTROSE 5%-WATER - 100 ML IVPB ONE (00:25)
[2018-06-17 00:30] LABS: VENOUS PH 7.06 (7.32-7.42)
[2018-06-17 00:31] LABS: VENOUS PC02 12.9 mmHg (38-52)
[2018-06-17] MEDS ORDERED: VANCOMYCIN 1 GRAM (PRE-DOCKED) 1,000 MG/250 ML BAG IVPB ONE (00:39)
[2018-06-17] MEDS ORDERED: PIPERACILLIN/TAZOB 4.5 GM 4.5 GM/100 ML BAG IVPB ONE ×2 (00:39→00:41)
[2018-06-17 00:40] LABS: ALBUMIN 2.6 g/dl (3.4-5.0); ALK PHOS 78 U/L (45-117); ANION GAP 24 MMOL/L (8-16); BILIRUBIN,TOTAL 0.4 mg/dL (0.2-1); BLOOD UREA NITROGEN 35 mg/dL (7-18); CHLORIDE 114 mmol/L (98-107); CO2 4 mmol/L (21-32); CREATININE 1.1 mg/dL (0.55-1.3); SGOT/AST 12 U/L (15-37); SGPT/ALT 14 U/L (13-61); SODIUM 143 mmol/L (136-145); TOT PROT 5.1 g/dl (6.4-8.2)
[2018-06-17 00:43] LABS: CALCIUM 6.3 mg/dL (8.5-10.1); GLUCOSE,RANDOM 717 mg/dL (74-106)
[2018-06-17 00:44] LABS: ACETONE SERUM POSITIVE LARGE 3+ (NEGATIVE)
[2018-06-17] MEDS ORDERED: INSULIN REGULAR HUMAN 100 UNITS/ML *VIAL IVPUSH ONE ×4 (00:49→09:13)
[2018-06-17] MEDS ORDERED: INSULIN REGULAR 100 UNITS in SODIUM CHLORIDE 99 ML IVPB SCH ×4 (01:00→06:21)
[2018-06-17 01:04] LABS: MAGNESIUM 1.9 mg/dL (1.8-2.4); PHOSPHOROUS 5.5 mg/dL (2.5-4.9)
[2018-06-17] MEDS ORDERED: ONDANSETRON 4 MG/2 ML VIAL IVPUSH PRN (01:14)
[2018-06-17] MEDS ORDERED: INSULIN REGULAR HUMAN 100 UNITS/ML *VIAL ONE ×2 (01:19→06:15)
[2018-06-17] MEDS ORDERED: KCL 10 MEQ IVPB 30 MEQ/300 ML INFUS.BAG IVPB ONE (01:22)
[2018-06-17] MEDS: KCL 10 MEQ IVPB 10 MEQ/100 ML INFUS.BAG IVPB SCH ×3 (01:25→03:30)
--- NOTE | 2018-06-17 01:34 | CONSULT ---
Consultation: Consult Service: Pulm/CCM CC: n/v HPI: 48 yo F h/o frequent admissions for DKA with active tobacco use, HLD, poorly controlled IDDM c/b recent CVA (left sided hemiparesis), gastroparesis last admitted in October 2017. Patient was found on the ground altered and unresponsive. In ED, patient is tachycardic, tachypenic, and restless with coffee ground color hematesis in mouth. Glc was > 700. Leukocytosis with neutrophilia. She was given NS x 3L boluses, 10 units of insulin boluses, broad spectrum abx (vanc/zosyn) though there was no clear localizing source. Pt will be transferred to ICU. PMH: as above PSH: Cholecystectomy Social History: Smoking history Current every day smoker Have you smoked in the past 12 Yes months Hx Alcohol Use No History of Substance Use None Usual Living Arrangement Alone ADL Independent Allergy: NKDA Meds: Aspirin [ASA -] 325 mg PO HS 11/20/17 Atorvastatin Ca [Lipitor] 10 mg PO HS 11/20/17 Insulin (Levemir) [Levemir Vial] 10 unit SQ HS 11/20/17 Insulin (Novolog) [Novolog -] 7 units SQ AC 11/20/17 Pantoprazole Sodium [Protonix] 40 mg PO BID 11/20/17 Ibuprofen [Motrin -] 600 mg PO TID PRN #21 tablet 01/31/18 Methocarbamol [Robaxin -] 500 mg PO BID PRN #14 tablet 01/31/18 ROS: CONSTITUTIONAL: fever, chills, diaphoresis, generalized weakness, +malaise,+ loss of appetite, weight change HEENT: rhinorrhea, nasal congestion, throat pain, throat swelling, difficulty swallowing, mouth swelling, ear pain, eye pain, visual changes CARDIOVASCULAR: chest pain, syncope, palpitations, irregular heart rate, lightheadedness, peripheral edema RESPIRATORY: cough, +shortness of breath, +dyspnea with exertion, orthopnea, wheezing, stridor, +hemoptysis GASTROINTESTINAL: abdominal pain, abdominal distension, +nausea, +vomiting, diarrhea, constipation, melena, hematochezia GENITOURINARY: dysuria, +frequency, urgency, hesitancy, hematuria, flank pain, genital pain MUSCULOSKELETAL: myalgia, arthralgia, joint swelling, back pain, neck pain SKIN: rash, itching, pallor HEMATOLOGIC/IMMUNOLOGIC: easy bleeding, easy bruising, lymphadenopathy, frequent infections ENDOCRINE:unexplained weight gain, unexplained weight loss, heat intolerance, cold intolerance NEUROLOGIC: +headache, focal weakness or paresthesias, dizziness, unsteady gait , seizure, +mental status changes, bladder or bowel incontinence PSYCHIATRIC:+anxiety, depression, suicidal or homicidal ideation, hallucinations. PE: Last Vital Signs Temp Pulse Resp BP Pulse Ox 97.1 F L 122 H 30 H 139/64 100 06/17/18 00:10 06/17/18 00:10 06/17/18 00:10 06/17/18 00:10 06/17/18 00:10 General: Nervous, Uncomfortable, Restless, in moderate cardiopulmonary distress Cardiovascular: Tachycardic, S1 and S2 normal, no m/g/r. Pulses 2+ equal on both sides. Lungs: CTAB. No crackles/rhonchi/wheezes. Abdomen: +bs, NT, ND Extremeties: No bilateral cyanosis, clubbing or edema. CBCD WBC 16.1 K/mm3 (4.0-10.0) H 06/16/18 23:50 RBC 2.83 M/mm3 (3.60-5.2) L 06/16/18 23:50 Hgb 7.8 GM/dL (10.7-15.3) L 06/16/18 23:50 Hct 25.3 % (32.4-45.2) L D 06/16/18 23:50 MCV 89.1 fl (80-96) 06/16/18 23:50 MCHC 30.7 g/dl (32.0-36.0) L 06/16/18 23:50 RDW 18.8 % (11.6-15.6) H 06/16/18 23:50 Plt Count 367 K/MM3 (134-434) D 06/16/18 23:50 MPV 8.1 fl (7.5-11.1) 06/16/18 23:50 CMP Sodium 143 mmol/L (136-145) 06/16/18 23:59 Potassium 4.0 mmol/L (3.5-5.1) 06/16/18 23:59 Chloride 114 mmol/L (98-107) H 06/16/18 23:59 Carbon Dioxide 4 mmol/L (21-32) L 06/16/18 23:59 Anion Gap 24 MMOL/L (8-16) H 06/16/18 23:59 BUN 35 mg/dL (7-18) H 06/16/18 23:59 Creatinine 1.1 mg/dL (0.55-1.3) 06/16/18 23:59 Creat Clearance w eGFR 52.79 (>60) 06/16/18 23:59 Calcium 6.3 mg/dL (8.5-10.1) L* 06/16/18 23:59 Total Bilirubin 0.4 mg/dL (0.2-1) 06/16/18 23:59 AST 12 U/L (15-37) L 06/16/18 23:59 ALT 14 U/L (13-61) 06/16/18 23:59 Alkaline Phosphatase 78 U/L (45-117) 06/16/18 23:59 Total Protein 5.1 g/dl (6.4-8.2) L 06/16/18 23:59 Albumin 2.6 g/dl (3.4-5.0) L 06/16/18 23:59 Urine Test Results Urine Color Colorless 06/16/18 23:17 Urine Appearance Clear 06/16/18 23:17 Urine pH 5.0 (5.0-8.0) 06/16/18 23:17 Ur Specific [place] 1.021 (1.010-1.035) 06/16/18 23:17 Urine Protein Negative (NEGATIVE) 06/16/18 23:17 Urine Glucose (UA) 3+ (NEGATIVE) H 06/16/18 23:17 Urine Ketones 2+ (NEGATIVE) H 06/16/18 23:17 Urine Blood Negative (NEGATIVE) 06/16/18 23:17 Urine Nitrite Negative (NEGATIVE) 06/16/18 23:17 Urine Bilirubin Negative (<2.0 mg/dL) 06/16/18 23:17 Ur Leukocyte Esterase Negative (NEGATIVE) 06/16/18 23:17 A/P 48 yo F admitted to ICU for DKA. Endo: DKA 1. fluid resus; received 3L NS, cont. fluid @ 250cc/hr 2. insulin therapy; received 10 units of insulin boluses, cont. insulin gtt 3. track glucose with FS q1h to maintain a steady decline of 75/hr 4. track anion gap with BMP q4h 5. track electrolytes: trend Na+, K+ and Mg2+, keep k+ > 5 6. NPO for now, Advance diet once DKA resolves ID: leukocytosis 1. UA and CXR unremarkable, likely reactive, will f/u cultures 2. received broad spectrum coverage in ED 3. suggest obs off abx GI: hematemesis 1. ED ordered 1 PRBC 2. likely due to excessive vomiting but cannot r/o upper GI bleed 3. cont. protonix gtt and zofran 4mg q4h PRN 4. repeat cbc in AM Jaspal Mckeon MD PGY3 Visit type - Emergency Visit Emergency Visit: Yes ED Registration Date: 06/17/18 Care time: The patient presented to the Emergency Department on the above date and was hospitalized for further evaluation of their emergent condition. - New Patient This patient is new to me today: Yes Date on this admission: 06/17/18 - Critical Care Critical Care patient: Yes Total Critical Care Time (in minutes): 40 Critical Care Statement: The care of this patient involved high complexity decision making to prevent further life threatening deterioration of the patient 's condition and/or to evaluate & treat vital organ system(s) failure or risk of failure.
--- NOTE | 2018-06-17 01:48 | PDOC ---
Attending Attestation - Medical Decision Making DATE OF SERVICE: 2018-06-17 03:02:39 IMAGES: 173 EXAM: HEAD CT WITHOUT CONTRAST HISTORY: Trauma COMPARISON: None. FINDINGS: The ventricular system is midline and nondilated. There is mild cortical atrophy and minimal small vessel ischemic disease. There is an old right parietal infarct.. There is no bleed,mass, extra-axial fluid collection or mass effect. No skull fracture or skull lesion is identified. The visualized paranasal sinuses and mastoid air cells are clear. IMPRESSION: No acute pathology. THIS DOCUMENT HAS BEEN ELECTRONICALLY SIGNED Joes Li MD 06/17/2018 03:25 EST EXAM: CERVICAL SPINE CT W/O CONTR HISTORY: Status post fall COMPARISON: None. FINDINGS: There is no fracture, subluxation, prevertebral soft tissue swelling or significant degenerative changes. The lung apices are clear. IMPRESSION: No fracture. One or more of the following dose reduction techniques were used: automated exposure control, THIS DOCUMENT HAS BEEN ELECTRONICALLY SIGNED Jose Li MD 06/17/2018 03:27 EST Documentation prepared by Suzanna Oviedo, acting as medical transcription supervisor for Daina Haines MD, <Suzanna Oviedo - Last Filed: 06/17/18 03:41> - Resident Resident Name: Saravanan Mitchell - ED Attending Attestation I have performed the following: I have examined & evaluated the patient, The case was reviewed & discussed with the resident, I agree w/resident's findings & plan, Exceptions are as noted - HPI HPI: 06/17/18 01:38 The patient is a 48 year old female, with a significant past medical history of IDDM who presents to the emergency department via ems after being found on the ground this evening. She states she felt she was in DKA all day. As per ems her BGM was in the 598. She states she can not recall the events leading to her on the ground. She reports low back pain for 1 week, nausea and vomiting. States she last took her insulin at 1pm. She is requesting Dilaudid for pain. The patient denies chest pain, shortness of breath, headache and dizziness. The patient denies fever, chills, diarrhea and constipation. The patient denies dysuria, frequency, urgency and hematuria. Allergies: NKDA - Physicial Exam PE: 06/17/18 01:39 GENERAL: Awake, alert, oriented. Tachypneic HEAD: No signs of trauma EYES: PERRLA, EOMI, sclera anicteric, conjunctiva clear ENT: +coffee grounds on teeth, not actively vomiting NECK: Normal ROM, supple, no lymphadenopathy, JVD, or masses LUNGS: Breath sounds equal, clear to auscultation bilaterally. No wheezes, and no crackles HEART: Tachycardic to 120s but regular, normal S1 and S2, no murmurs, rubs or gallops ABDOMEN: Soft, nontender, normoactive bowel sounds. No guarding, no rebound. No masses EXTREMITIES: Normal range of motion, no edema. No cords, erythema, or tenderness BACK: No midline spinal tenderness in cervical/thoracic/lumbar region. No deformities or step offs NEUROLOGICAL: Normal speech, cranial nerves intact, equal strength and sensation b/l SKIN: Warm, Dry, normal turgor, no rashes or lesions noted. - Critical Care Time Total Critical Care Time: 120 Critical Care Statement: The care of this patient involved high complexity decision making to prevent further life threatening deterioration of the patient 's condition and/or to evaluate & treat vital organ system(s) failure or risk of failure. - Medical Decision Making 06/17/18 01:48 48yo F presents to the ED with DKA c/b hemorrhagic gastritis. ALso fall earlier today DKA likely 2/2 insulin non compliance, rectally afebrile WBC 16, UA/CXR negative but in light of tachycardia, pt covered with vanc/zosyn empirically S/p 2L NS Glucose 717, AG 24, pH 7, Bicarb 3, K is 4, potassium added to fluids, also 3 runs of 10meq IV have been ordered Bolus insulin 6units, insulin gtt started @6u/hr Pt attempting to pull IVs at one point, can not sedate pt as resp depression can worsen acidosis As such, decision made to restrain pt due to potential for self harm CTH, CT-c-spine pending Pt endorsed to Dr. Ernandez, accepted to ICU Case discussed in detail with admitting physician including history, physical exam and ancillary studies. Admitting physician has assumed care for the patient, will follow all pending diagnostics and will complete the evaluation and treatment. <Daina Haines - Last Filed: 06/17/18 06:43>
--- NOTE | 2018-06-17 02:24 | HP ---
CHIEF COMPLAINT: AMS, back pain, DKA PCP: HISTORY OF PRESENT ILLNESS: patient is altered and unable to give a history. The following is obtained from the medical record 48 yo F PMH HTN, CVA (left sided hemiparesis), HLD, IDDM, DKA, Dysphagia, Gastroparesis, esophageal stricture (EGD 02/14), who presents w/ AMS, n/v, elevated blood sugars, and back pain s/p fall. Per EMS, the patient was found on the ground minimally responsive with a blood sugar of greater than 500. The patient has had multiple presentations in the past for DKA. The patient notes that she fell on her back today and reports back pain. She notes nausea and vomiting and reports SOB, chills, chest pain, abdominal pain, fatigue, increased thirst, increased urination with de [place] positive ROS. The patient notes that she feels similar to her prior presentations for DKA as well. The patient is somewhat a poor historian and is restless/disoriented. Of note, pt mentions she has pain in her left arm and back and that she takes oxycodone and morphine at home. States she last took her insulin at 1pm. She is requesting Dilaudid for pain. In the ED, pt was noted to have coffee ground emesis ER course was notable for: (1)3 L NS, zofran, protonix 80IVP, tylenol. H/H 7.8 (2) Bolus insulin 6units, insulin gtt started @6u/hr (3) Head CT no acute pathology. old right parietal infarct. CT C-spine - no frx Recent Travel: none PAST MEDICAL HISTORY: EGD 02/14 - esophageal stricture, esophagitis, erythematous mucosa in gastric antrum PAST SURGICAL HISTORY: cholecysectomy Social History: Smoking: active smoker w/30 pack year history Alcohol: denies Drugs: denies Family History: Allergies No Known Allergies Allergy (Verified 06/16/18 22:40) HOME MEDICATIONS: Home Medications Medication Instructions Recorded Aspirin [ASA -] 325 mg PO HS 11/20/17 Atorvastatin Ca [Lipitor] 10 mg PO HS 11/20/17 Insulin (Levemir) [Levemir Vial] 25 unit SQ HS 11/20/17 Insulin (Novolog) [Novolog -] See Protocol SQ AC PRN 11/20/17 Pantoprazole Sodium [Protonix] 40 mg PO BID 11/20/17 Ibuprofen [Motrin -] 600 mg PO TID PRN #21 tablet 01/31/18 Methocarbamol [Robaxin -] 500 mg PO BID PRN #14 tablet 01/31/18 REVIEW OF SYSTEMS as per [facility] PHYSICAL EXAMINATION Vital Signs - 24 hr 06/16/18 06/17/18 22:30 00:10 Temperature 98.7 F 97.1 F L Pulse Rate 118 H Pulse Rate [ 122 H Apical] Respiratory 22 H 30 H Rate Blood Pressure 141/96 Blood Pressure 139/64 [Right Arm] O2 Sat by Pulse 97 100 Oximetry (%) GENERAL: lethargic, agitated, distressed, tachypnic w/ abd breathing HEAD: NCAT EYES: sclera anicteric, conjunctiva clear. No lid lag. EARS, NOSE, THROAT: Dry mucous membranes. dry blood at the corners of her mouth. NECK: Normal range of motion, supple without lymphadenopathy, JVD, or masses. LUNGS: ctab tachypnic HEART: tachy RR, normal S1 and S2 without murmur, rub or gallop. ABDOMEN: Soft, mild diffuse tenderness, not distended, normoactive bowel sounds , no guarding, no rebound, no masses. MUSCULOSKELETAL: Normal range of motion at all joints. No bony deformities or tenderness. UPPER EXTREMITIES: 2+ pulses, warm, well-perfused. No cyanosis. No clubbing. No peripheral edema. LOWER EXTREMITIES: 2+ pulses, warm, well-perfused. No calf tenderness. No peripheral edema. NEUROLOGICAL: Awake, disoriented and restless. Moves all limbs. Unable to follow commands. No tremors. SKIN: Warm, dry, normal turgor, no rashes or lesions noted, normal capillary refill. Laboratory Results - last 24 hr 06/16/18 06/16/18 06/16/18 23:17 23:30 23:50 WBC 16.1 H RBC 2.83 L Hgb 7.8 L Hct 25.3 L D MCV 89.1 MCH 27.4 MCHC 30.7 L RDW 18.8 H Plt Count 367 D MPV 8.1 Absolute Neuts (auto) 14.0 H Neutrophils % 86.9 H D Lymphocytes % 7.7 L D Monocytes % 4.1 Eosinophils % 0.0 D Basophils % 1.3 D Nucleated RBC % 0 VBG pH POC VBG pCO2 POC VBG pO2 Mixed VBG HCO3 Sodium Potassium Chloride Carbon Dioxide Anion Gap BUN Creatinine Creat Clearance w eGFR Random Glucose Lactic Acid Calcium Phosphorus Magnesium Total Bilirubin AST ALT Alkaline Phosphatase Creatine Kinase Troponin I Total Protein Albumin Serum , Qual Urine Color Colorless Urine Appearance Clear Urine pH 5.0 Ur Specific [place] 1.021 Urine Protein Negative Urine Glucose (UA) 3+ H Urine Ketones 2+ H Urine Blood Negative Urine Nitrite Negative Urine Bilirubin Negative Urine Urobilinogen Negative Ur Leukocyte Esterase Negative Acetone, Qual Blood Type A NEGATIVE Antibody Screen Negative Crossmatch See Detail 06/16/18 06/16/18 06/16/18 23:50 23:50 23:59 WBC RBC Hgb Hct MCV MCH MCHC RDW Plt Count MPV Absolute Neuts (auto) Neutrophils % Lymphocytes % Monocytes % Eosinophils % Basophils % Nucleated RBC % VBG pH POC VBG pCO2 POC VBG pO2 Mixed VBG HCO3 Sodium Potassium Chloride Carbon Dioxide Anion Gap BUN Creatinine Creat Clearance w eGFR Random Glucose Lactic Acid 3.1 H* Calcium Phosphorus 5.5 H Magnesium 1.9 Total Bilirubin AST ALT Alkaline Phosphatase Creatine Kinase Troponin I Total Protein Albumin Serum , Qual Negative Urine Color Urine Appearance Urine pH Ur Specific [place] Urine Protein Urine Glucose (UA) Urine Ketones Urine Blood Urine Nitrite Urine Bilirubin Urine Urobilinogen Ur Leukocyte Esterase Acetone, Qual Blood Type Antibody Screen Crossmatch 06/16/18 06/16/18 23:59 23:59 WBC RBC Hgb Hct MCV MCH MCHC RDW Plt Count MPV Absolute Neuts (auto) Neutrophils % Lymphocytes % Monocytes % Eosinophils % Basophils % Nucleated RBC % VBG pH 7.06 L* POC VBG pCO2 12.9 L* D POC VBG pO2 58.9 H Mixed VBG HCO3 3.4 L* Sodium 143 Potassium 4.0 Chloride 114 H Carbon Dioxide 4 L Anion Gap 24 H BUN 35 H Creatinine 1.1 Creat Clearance w eGFR 52.79 Random Glucose 717 H* Lactic Acid Calcium 6.3 L* Phosphorus Magnesium Total Bilirubin 0.4 AST 12 L ALT 14 Alkaline Phosphatase 78 Creatine Kinase 37 Troponin I < 0.02 Total Protein 5.1 L Albumin 2.6 L Serum , Qual Urine Color Urine Appearance Urine pH Ur Specific [place] Urine Protein Urine Glucose (UA) Urine Ketones Urine Blood Urine Nitrite Urine Bilirubin Urine Urobilinogen Ur Leukocyte Esterase Acetone, Qual Positive large 3+ H Blood Type Antibody Screen Crossmatch ASSESSMENT/PLAN: 48 yo F PMH HTN, CVA (left sided hemiparesis), HLD, IDDM, DKA, Dysphagia, Gastroparesis, esophageal stricture (EGD 02/14), who presents w/ AMS, n/v, elevated blood sugars, and back pain s/p fall. Found to be in DKA # Severe DKA likely 2/2 insulin non adherence. - Gap 24, bicarb 4, pH 7.06, CO2 12.9, gluc 717, acetone 3+, lactic 3.1 -IVF: received 3L NS, c/w fluid @ 250cc/hr -insulin therapy; received 6 units of insulin boluses, c/w insulin gtt -trend glucose with FS q1h to maintain a steady decline of 75/hr -trend anion gap with BMP q4h -trend lactic -trend electrolytes: trend Na+, K+ and Mg2+, keep k+ > 5 -NPO for now, Advance diet once DKA resolves #AMS - may be entirely 2/2 DKA, but sepsis w/u is being done as well as ruling out an intracranial event or illicit drug use. utox f/u bcx, ucx Head CT no acute pathology. old right parietal infarct. #leukocytosis UA and CXR unremarkable, likely reactive, will f/u bcx, ucx s/p vanc/zosyn for broad spectrum coverage in ED observation off abx for now and will reassess in AM # hematemesis w/ Anemia - Unclear whether anemia is due to acute blood loss - no obvious active bleeding at this time, unclear whether there is upper GIB -monitor H/H -basic anemia work up including reticulocyte count and iron studies -use IV iron if found to be iron deficient. -ED ordered 1 PRBC. will hold off on transfusion pending rpt CBC in AM -s/p protonix IVP 80 consider switching to gtt in the AM -zofran 4mg q4h PRN -GI consult #fall w/ back pain Head CT no acute pathology. old right parietal infarct. CT C-spine - no frx #GIANCARLO- likely prerenal due to volume loss . Cr 1.1 baseline is around .8 avoid nephrotoxic agents IVF #FEN s/p 3L NS, c/w NS@ 250cc/hr, consider adding K pending rpt BMP replete prn NPO for now, Advance diet once DKA resolves #ppx SCDs, hold off on AC in setting of possible GIB s/p protonix IVP 80 consider switching to gtt in the AM #Advance directives - Full code #Dispo pt admitted and to be monitored in ICU Visit type - Emergency Visit Emergency Visit: Yes ED Registration Date: 06/17/18 Care time: The patient presented to the Emergency Department on the above date and was hospitalized for further evaluation of their emergent condition. - New Patient This patient is new to me today: Yes Date on this admission: 06/17/18 - Critical Care Critical Care patient: Yes Total Critical Care Time (in minutes): 40 Critical Care Statement: The care of this patient involved high complexity decision making to prevent further life threatening deterioration of the patient 's condition and/or to evaluate & treat vital organ system(s) failure or risk of failure.
[2018-06-17] MEDS ORDERED: SODIUM CHLORIDE 1,000 ML IV SCH ×2 (02:45→06:15)
--- NOTE | 2018-06-17 03:18 | PN ---
Teaching Attending Note Name of Resident: Kenny Lujan ATTENDING PHYSICIAN STATEMENT I saw and evaluated the patient. I reviewed the resident's note and discussed the case with the resident. I agree with the resident's findings and plan as documented. SUBJECTIVE: Patient is a 48 year old woman with a history of HTN, CVA, HLD, IDDM, DKA, tobacco use, Dysphagia, Gastroparesis and esophageal stricture who presents for evaluation of elevated blood sugars. Per EMS, the patient was found on the ground minimally responsive with a blood sugar of greater than 500. The patient has had multiple presentations in the past for DKA. The patient notes that she fell on her back today and reports back pain. She notes nausea and vomiting and reports shortness of breath, chills, chest pain, abdominal pain, fatigue, increased thirst, increased urination with de la rosa positive ROS. The patient notes that she feels similar to her prior presentations for DKA as well. Patient is restless and disoriented, but tells me she has pain in her left arm and back and that she takes oxycodone and morphine at home. OBJECTIVE: Restless, awake, disoriented and in respiratory distress Vital Signs Period Temp Pulse Resp BP Sys/Rapp Pulse Ox Last 24 Hr 97.1 F-98.7 F 118-122 22-30 139-141/64-96 97-100 HEENT: No Jaundice, eye redness or discharge, PERRLA, EOMI. Normocephalic, atraumatic. External ears are normal; dry blood at the corners of her mouth. No nasal discharge. Neck: Supple, nontender. No palpable adenopathy or thyromegaly. No JVD Chest: Good effort. Clear to auscultation and percussion. Heart: Tachycardia. No S3, rub or murmur Abdomen: Not distended, soft, nontender and no HSM. No rebound or guarding. Normoactive bowel sounds. Ext: Peripheral pulses intact. No leg edema. No limb or paravertebral or vertebral tenderness. Skin: Warm and dry. No petechiae, rash or ecchymosis. Neuro: Awake, disoriented and restless. Moves all limbs. Unable to follow commands. No tremors. Current Medications Generic Name Dose Route Start Last Admin Trade Name Freq PRN Reason Stop Dose Admin Chlorhexidine Gluconate 1 applic 06/17/18 22:00 Hibiclens For Decolonization - TP HS [facility] Potassium Chloride 10 meq in 100 mls @ 100 mls/hr 06/17/18 01:00 06/17/18 02: 00 Potassium Chloride 10 Meq Premix Ivpb - IVPB 06/17/18 03:59 100 mls/hr Q60M [facility] Administration Insulin Human Regular 100 100 mls @ 5.89 mls/hr 06/17/18 01:00 06/17/18 02:00 units/ Sodium Chloride IVPB 0.1 units/kg/hr TITR [facility] 5.89 mls/hr Administration Protocol 0.1 UNITS/KG/HR Sodium Chloride 1,000 mls @ 250 mls/hr 06/17/18 02:45 Normal Saline - IV 06/17/18 06:44 ASDIR [facility] Mupirocin 1 applic 06/17/18 10:00 Bactroban Ointment (For Decolonization) - NS 06/22/18 09:59 BID [facility] Ondansetron HCl 4 mg 06/17/18 01:14 Zofran Injection IVPUSH Q6H PRN NAUSEA Home Medications Medication Instructions Recorded Aspirin [ASA -] 325 mg PO HS 11/20/17 Atorvastatin Ca [Lipitor] 10 mg PO HS 11/20/17 Insulin (Levemir) [Levemir Vial] 25 unit SQ HS 11/20/17 Insulin (Novolog) [Novolog -] See Protocol SQ AC PRN 11/20/17 Pantoprazole Sodium [Protonix] 40 mg PO BID 11/20/17 Ibuprofen [Motrin -] 600 mg PO TID PRN #21 tablet 01/31/18 Methocarbamol [Robaxin -] 500 mg PO BID PRN #14 tablet 01/31/18 Abnormal Lab Results 06/16/18 06/16/18 06/16/18 23:17 23:30 23:50 WBC 16.1 H RBC 2.83 L Hgb 7.8 L Hct 25.3 L D MCHC 30.7 L RDW 18.8 H Absolute Neuts (auto) 14.0 H Neutrophils % 86.9 H D Lymphocytes % 7.7 L D VBG pH POC VBG pCO2 POC VBG pO2 Mixed VBG HCO3 Chloride Carbon Dioxide Anion Gap BUN Random Glucose Lactic Acid Calcium Phosphorus AST Total Protein Albumin Urine Glucose (UA) 3+ H Urine Ketones 2+ H Acetone, Qual Crossmatch See Detail 06/16/18 06/16/18 06/16/18 23:50 23:50 23:59 WBC RBC Hgb Hct MCHC RDW Absolute Neuts (auto) Neutrophils % Lymphocytes % VBG pH 7.06 L* POC VBG pCO2 12.9 L* D POC VBG pO2 58.9 H Mixed VBG HCO3 3.4 L* Chloride Carbon Dioxide Anion Gap BUN Random Glucose Lactic Acid 3.1 H* Calcium Phosphorus 5.5 H AST Total Protein Albumin Urine Glucose (UA) Urine Ketones Acetone, Qual Crossmatch 06/16/18 23:59 WBC RBC Hgb Hct MCHC RDW Absolute Neuts (auto) Neutrophils % Lymphocytes % VBG pH POC VBG pCO2 POC VBG pO2 Mixed VBG HCO3 Chloride 114 H Carbon Dioxide 4 L Anion Gap 24 H BUN 35 H Random Glucose 717 H* Lactic Acid Calcium 6.3 L* Phosphorus AST 12 L Total Protein 5.1 L Albumin 2.6 L Urine Glucose (UA) Urine Ketones Acetone, Qual Positive large 3+ H Crossmatch ASSESSMENT AND PLAN: 1. Severe DKA with AMS - No obvious precipitating factor for DKA. AMS may be entirely due to DKA, but sepsis workup is being done as well as ruling out an intracranial event or illicit drug use. Admitted to the ICU. Started on IV insulin drip, IV NS, IV KCL and the DKA protocol is being implemented. Monitor and correct abnormal electrolytes. Treat with IV protonix. If mental status improves and she continues to complain about back pain, will get scans to rule out fracture - was found on the floor, so it is unclear whether she fell. Once stable, will provide comprehensive diabetes care with patient teaching and counseling about the importance of euglycemia, eye care and foot care. GIANCARLO likely due to volume loss - will avoid nephrotoxic agents such as NSAIDS, aminoglycosides, contrast dyes and certain Alternative medicine products. 2. Hypoalbuminemia - Possibly due to combined effects of malnutrition and inflammation associated with comorbid chronic conditions. 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 3. Tobacco Use We will provide patient all the necessary assistance to facilitate smoking cessation and prescribe Nicotine patch. 4. Anemia - Unclear whether anemia is due to acute blood loss - no obvious active bleeding at this time. Will monitor closely since HCT is bound to drop with hydration. Do basic anemia work up including serial stool guaiacs, reticulocyte count and iron studies. Transfuse PRN and use IV iron if found to be iron deficient. 5. DVT prophylaxis - Heparin 5000u sq tid. 6. Advance directives - Full code
[2018-06-17 03:25] LABS: ANION GAP 27 MMOL/L (8-16); BLOOD UREA NITROGEN 52 mg/dL (7-18); CALCIUM 8.8 mg/dL (8.5-10.1); CHLORIDE 100 mmol/L (98-107); CO2 5 mmol/L (21-32); CREATININE 1.8 mg/dL (0.55-1.3); MAGNESIUM 2.9 mg/dL (1.8-2.4); SODIUM 133 mmol/L (136-145)
[2018-06-17 03:30] LABS: GLUCOSE,RANDOM 1085 mg/dL (74-106)
[2018-06-17 03:31] LABS: POTASSIUM 6.3 mmol/L (3.5-5.1)
[2018-06-17] MEDS ORDERED: ONDANSETRON 4 MG/2 ML VIAL ONE (05:00)
[2018-06-17] MEDS ORDERED: FAMOTIDINE 20 MG/50 ML IVPB 20 MG/50 ML MG IVPB ONE (05:01)
[2018-06-17 05:48] VITALS: BMI 21.2
[2018-06-17] MEDS ORDERED: CALCIUM GLUCONATE 10% - 1,000 MG/10 ML VIAL IVPB ONE (06:09)
[2018-06-17 06:27] LABS: COCAINE, UR NEGATIVE ng/ml (CUTOFF=300); METHADONE, UR NEGATIVE ng/ml (CUTOFF=300); OPIATES, URI NEGATIVE ng/ml (CUTOFF=300); PHENCYCLIDINE,URINE NEGATIVE ng/ml (CUTOFF=25); URINE AMPHETAMINES NEGATIVE ng/ml (CUTOFF=500); URINE BARBITURATES NEGATIVE ng/ml (CUTOFF=200); URINE BENZODIAZEPINES NEGATIVE ng/ml (CUTOFF=200)
[2018-06-17] MEDS ORDERED: LORazepam 2 MG/ML SDV VIAL IVPUSH PRN (06:46)
[2018-06-17] MEDS ORDERED: SODIUM CHLORIDE 1,000 ML IV STA ×2 (07:21→08:39)
[2018-06-17 08:00] LABS: ARTERIAL BLD GAS O2 SATURATION 98.4 % (90-98.9); ARTERIAL BLOOD GAS BASE EXCESS -20.5 meq/l (-2-2)
[2018-06-17 08:01] LABS: ALLENS TEST POSITIVE
[2018-06-17 08:03] LABS: BASO % 0.9 % (0-2.0); EOS % 0.1 % (0-4.5); HEMATOCRIT 31.1 % (32.4-45.2); HEMOGLOBIN 9.4 GM/dL (10.7-15.3); MCH 26.2 pg (25.7-33.7); MCHC 30.1 g/dl (32.0-36.0); MEAN PLT VOLUME 7.8 fl (7.5-11.1); MONO % 5.6 % (3.8-10.2); NEUT % 83.4 % (42.8-82.8); PLATELET COUNT 406 K/MM3 (134-434); RBC 3.57 M/mm3 (3.60-5.2); RDW 18.2 % (11.6-15.6); WHITE BLOOD COUNT 24.9 K/mm3 (4.0-10.0)
--- NOTE | 2018-06-17 08:27 | PN ---
Physical Exam: SUBJECTIVE: Patient seen and examined this AM. She is very anxious/agitated and is requesting pain medication stating that she is in a lot of pain from the attempted blood draws. OBJECTIVE: Vital Signs Period Temp Pulse Resp BP Sys/Rapp Pulse Ox Last 24 Hr 96.8 F-98.7 F 113-122 22-30 86-142/61-96 97-100 GENERAL: A&O, acutely agitated HEAD: Normocephalic, atraumatic. EYES: PERRL, no scleral icterus EARS, NOSE, THROAT: oropharynx clear without exudates. Very mucous membranes with dried dark material around lips NECK: supple without lymphadenopathy LUNGS: Tachypnic, but otherwise CTA b/l, no crackles or wheezes HEART: Regular rate and rhythm, normal S1 and S2 without murmur ABDOMEN: Soft, nontender to palpation, normoactive bowel sounds MUSCULOSKELETAL: No bony deformities or tenderness. EXTREMITIES: 2+ pulses, warm, well-perfused. No peripheral edema. NEUROLOGICAL: Cranial nerves II-XII grossly intact. Normal speech. Laboratory Results - last 24 hr 06/16/18 06/16/18 06/16/18 23:17 23:30 23:50 WBC 16.1 H RBC 2.83 L Hgb 7.8 L Hct 25.3 L D MCV 89.1 MCH 27.4 MCHC 30.7 L RDW 18.8 H Plt Count 367 D MPV 8.1 Absolute Neuts (auto) 14.0 H Neutrophils % 86.9 H D Lymphocytes % 7.7 L D Monocytes % 4.1 Eosinophils % 0.0 D Basophils % 1.3 D Nucleated RBC % 0 ABG pH ABG pCO2 at Pt Temp ABG pO2 at Pt Temp ABG HCO3 ABG O2 Sat (Measured) ABG O2 Content ABG Base Excess Atul Test VBG pH POC VBG pCO2 POC VBG pO2 Mixed VBG HCO3 Sodium Potassium Chloride Carbon Dioxide Anion Gap BUN Creatinine Creat Clearance w eGFR Random Glucose Hemoglobin A1c % Lactic Acid Calcium Phosphorus Magnesium Total Bilirubin AST ALT Alkaline Phosphatase Creatine Kinase Troponin I Total Protein Albumin Serum , Qual Urine Color Colorless Urine Appearance Clear Urine pH 5.0 Ur Specific [place] 1.021 Urine Protein Negative Urine Glucose (UA) 3+ H Urine Ketones 2+ H Urine Blood Negative Urine Nitrite Negative Urine Bilirubin Negative Urine Urobilinogen Negative Ur Leukocyte Esterase Negative Opiates Screen Methadone Screen Barbiturate Screen Phencyclidine Screen Ur Amphetamines Screen MDMA (Ecstasy) Screen Benzodiazepines Screen Cocaine Screen U Marijuana (THC) Screen Acetone, Qual Blood Type A NEGATIVE Antibody Screen Negative Crossmatch See Detail 06/16/18 06/16/18 06/16/18 23:50 23:50 23:59 WBC RBC Hgb Hct MCV MCH MCHC RDW Plt Count MPV Absolute Neuts (auto) Neutrophils % Lymphocytes % Monocytes % Eosinophils % Basophils % Nucleated RBC % ABG pH ABG pCO2 at Pt Temp ABG pO2 at Pt Temp ABG HCO3 ABG O2 Sat (Measured) ABG O2 Content ABG Base Excess Atul Test VBG pH POC VBG pCO2 POC VBG pO2 Mixed VBG HCO3 Sodium Potassium Chloride Carbon Dioxide Anion Gap BUN Creatinine Creat Clearance w eGFR Random Glucose Hemoglobin A1c % Lactic Acid 3.1 H* Calcium Phosphorus 5.5 H Magnesium 1.9 Total Bilirubin AST ALT Alkaline Phosphatase Creatine Kinase Troponin I Total Protein Albumin Serum , Qual Negative Urine Color Urine Appearance Urine pH Ur Specific [place] Urine Protein Urine Glucose (UA) Urine Ketones Urine Blood Urine Nitrite Urine Bilirubin Urine Urobilinogen Ur Leukocyte Esterase Opiates Screen Methadone Screen Barbiturate Screen Phencyclidine Screen Ur Amphetamines Screen MDMA (Ecstasy) Screen Benzodiazepines Screen Cocaine Screen U Marijuana (THC) Screen Acetone, Qual Blood Type Antibody Screen Crossmatch 06/16/18 06/16/18 06/17/18 23:59 23:59 02:30 WBC RBC Hgb Hct MCV MCH MCHC RDW Plt Count MPV Absolute Neuts (auto) Neutrophils % Lymphocytes % Monocytes % Eosinophils % Basophils % Nucleated RBC % ABG pH ABG pCO2 at Pt Temp ABG pO2 at Pt Temp ABG HCO3 ABG O2 Sat (Measured) ABG O2 Content ABG Base Excess Atul Test VBG pH 7.06 L* POC VBG pCO2 12.9 L* D POC VBG pO2 58.9 H Mixed VBG HCO3 3.4 L* Sodium 143 133 L Potassium 4.0 6.3 H* Chloride 114 H 100 Carbon Dioxide 4 L 5 L Anion Gap 24 H 27 H BUN 35 H 52 H Creatinine 1.1 1.8 H Creat Clearance w eGFR 52.79 29.91 Random Glucose 717 H* 1085 H* Hemoglobin A1c % Lactic Acid Calcium 6.3 L* 8.8 Phosphorus Magnesium 2.9 H Total Bilirubin 0.4 AST 12 L ALT 14 Alkaline Phosphatase 78 Creatine Kinase 37 Troponin I < 0.02 Total Protein 5.1 L Albumin 2.6 L Serum , Qual Urine Color Urine Appearance Urine pH Ur Specific [place] Urine Protein Urine Glucose (UA) Urine Ketones Urine Blood Urine Nitrite Urine Bilirubin Urine Urobilinogen Ur Leukocyte Esterase Opiates Screen Methadone Screen Barbiturate Screen Phencyclidine Screen Ur Amphetamines Screen MDMA (Ecstasy) Screen Benzodiazepines Screen Cocaine Screen U Marijuana (THC) Screen Acetone, Qual Positive large 3+ H Blood Type Antibody Screen Crossmatch 06/17/18 06/17/18 06/17/18 05:30 07:44 07:44 WBC 24.9 H RBC 3.57 L Hgb 9.4 L Hct 31.1 L D MCV 87.0 MCH 26.2 MCHC 30.1 L RDW 18.2 H Plt Count 406 MPV 7.8 Absolute Neuts (auto) 20.8 H Neutrophils % 83.4 H Lymphocytes % 10.0 D Monocytes % 5.6 Eosinophils % 0.1 D Basophils % 0.9 Nucleated RBC % 0 ABG pH ABG pCO2 at Pt Temp ABG pO2 at Pt Temp ABG HCO3 ABG O2 Sat (Measured) ABG O2 Content ABG Base Excess Atul Test VBG pH POC VBG pCO2 POC VBG pO2 Mixed VBG HCO3 Sodium Potassium Chloride Carbon Dioxide Anion Gap BUN Creatinine Creat Clearance w eGFR Random Glucose Hemoglobin A1c % 10.4 H Lactic Acid Calcium Phosphorus Magnesium Total Bilirubin AST ALT Alkaline Phosphatase Creatine Kinase Troponin I Total Protein Albumin Serum , Qual Urine Color Urine Appearance Urine pH Ur Specific [place] Urine Protein Urine Glucose (UA) Urine Ketones Urine Blood Urine Nitrite Urine Bilirubin Urine Urobilinogen Ur Leukocyte Esterase Opiates Screen Negative Methadone Screen Negative Barbiturate Screen Negative Phencyclidine Screen Negative Ur Amphetamines Screen Negative MDMA (Ecstasy) Screen Negative Benzodiazepines Screen Negative Cocaine Screen Negative U Marijuana (THC) Screen Negative Acetone, Qual Blood Type Antibody Screen Crossmatch 06/17/18 07:52 WBC RBC Hgb Hct MCV MCH MCHC RDW Plt Count MPV Absolute Neuts (auto) Neutrophils % Lymphocytes % Monocytes % Eosinophils % Basophils % Nucleated RBC % ABG pH 7.20 L* ABG pCO2 at Pt Temp 16.7 L* ABG pO2 at Pt Temp 137.0 H D ABG HCO3 6.3 L* ABG O2 Sat (Measured) 98.4 ABG O2 Content 12.4 L ABG Base Excess -20.5 L* Atul Test Positive VBG pH POC VBG pCO2 POC VBG pO2 Mixed VBG HCO3 Sodium Potassium Chloride Carbon Dioxide Anion Gap BUN Creatinine Creat Clearance w eGFR Random Glucose Hemoglobin A1c % Lactic Acid Calcium Phosphorus Magnesium Total Bilirubin AST ALT Alkaline Phosphatase Creatine Kinase Troponin I Total Protein Albumin Serum , Qual Urine Color Urine Appearance Urine pH Ur Specific [place] Urine Protein Urine Glucose (UA) Urine Ketones Urine Blood Urine Nitrite Urine Bilirubin Urine Urobilinogen Ur Leukocyte Esterase Opiates Screen Methadone Screen Barbiturate Screen Phencyclidine Screen Ur Amphetamines Screen MDMA (Ecstasy) Screen Benzodiazepines Screen Cocaine Screen U Marijuana (THC) Screen Acetone, Qual Blood Type Antibody Screen Crossmatch Active Medications Generic Name Dose Route Start Last Admin Trade Name Freq PRN Reason Stop Dose Admin Chlorhexidine Gluconate 1 applic 06/17/18 22:00 Hibiclens For Decolonization - TP HS [facility] Insulin Human Regular 100 100 mls @ 15.37 mls/hr 06/17/18 06:21 06/17/18 06: 24 units/ Sodium Chloride IVPB 0.25 units/kg/hr TITR [facility] 15.37 mls/hr Administration Protocol 0.25 UNITS/KG/HR Sodium Bicarbonate 150 meq/ 1,150 mls @ 125 mls/hr 06/17/18 08:30 Dextrose IV Q9H [facility] Lorazepam 1 mg 06/17/18 06:46 06/17/18 07:45 Ativan Injection - IVPUSH 1 mg Q6H PRN Administration ANXIETY Mupirocin 1 applic 06/17/18 10:00 Bactroban Ointment (For Decolonization) - NS 06/22/18 09:59 BID [facility] Ondansetron HCl 4 mg 06/17/18 01:14 06/17/18 05:10 Zofran Injection IVPUSH 4 mg Q6H PRN Administration NAUSEA Pantoprazole Sodium 40 mg 06/17/18 10:00 Protonix Iv IVPUSH BID [facility] ASSESSMENT/PLAN: 48 yo F PMH HTN, CVA (left sided hemiparesis), HLD, IDDM, DKA, Dysphagia, Gastroparesis, esophageal stricture (EGD 02/14), who presents w/ AMS, n/v, elevated blood sugars, and back pain s/p fall. Found to be in DKA Severe DKA -Insulin Drip until Anion Gap is fully closed -Start Levemir once insulin drip no longer requiring drip -D5 1/2 NS + 40 mEq of K+ @ 125 cc/hr -A1C 10.4 -BGM Q1H and BMP Q4H Leukocytosis -Likely secondary to acute DKA process -Will trend CBC -No infectious source able to be identified at this time -UA with no signs of UTI -CXR with no acute pathology -Abdomen not acutely/focally tender Coffee Ground Emesis with Anemia -H/H improved overnight, will continue to trend -GI Consulted -Protonix 80 mg IV given overnight -Protonix 40 mg IV BID -Reglan 10 mg PRN for n/v -Retics and Iron studies pending -Defer EGD in absence of acute bleed S/P Fall, Back pain -Imaging negative in ED GIANCARLO -Likely prerenal secondary to hypoperfusion with severe dehydration -Trend BMP for resolution with fluid resuscitation HLD -Lipitor in the past but pt not currently taking Past CVA with residual L sided weakness -Currently stable -No signs of acute CVA DVT Prophylaxis -Heparin 5000 units SQ TID FEN -Fluids: D5 1/2NS + 40 mEq K+ @ 125 cc/hr -Electrolytes: Monitor Abnormalities and replete as needed, Trend BMP -Nutrition: NPO, Advance diet as per GI Disposition ICU Visit type - Emergency Visit Emergency Visit: Yes ED Registration Date: 06/17/18 Care time: The patient presented to the Emergency Department on the above date and was hospitalized for further evaluation of their emergent condition. - New Patient This patient is new to me today: Yes Date on this admission: 06/17/18 - Critical Care Critical Care patient: Yes Total Critical Care Time (in minutes): 40 Critical Care Statement: The care of this patient involved high complexity decision making to prevent further life threatening deterioration of the patient 's condition and/or to evaluate & treat vital organ system(s) failure or risk of failure.
[2018-06-17] MEDS ORDERED: SODIUM BICARBONATE 8.4% 50 MEQ/50 ML VIAL ONE (08:28)
[2018-06-17] MEDS ORDERED: DEXTROSE 5%-WATER - 1,000 ML with SODIUM BICARBONATE 8.4% - 150 MEQ IV SCH ×2 (08:30→08:33)
[2018-06-17] MEDS: DEXTROSE 5%-WATER - 1,000 ML with SODIUM BICARBONATE 8.4% - 150 MEQ IV SCH ×2 (08:30→09:11)
[2018-06-17 08:36] LABS: ALBUMIN 3.3 g/dl (3.4-5.0); ALK PHOS 98 U/L (45-117); ANION GAP 20 MMOL/L (8-16); BILIRUBIN,TOTAL 0.3 mg/dL (0.2-1); BLOOD UREA NITROGEN 46 mg/dL (7-18); CALCIUM 8.5 mg/dL (8.5-10.1); CHLORIDE 118 mmol/L (98-107); CO2 7 mmol/L (21-32); CREATININE 1.7 mg/dL (0.55-1.3); MAGNESIUM 2.5 mg/dL (1.8-2.4); PHOSPHOROUS 1.4 mg/dL (2.5-4.9); POTASSIUM 3.7 mmol/L (3.5-5.1); SGOT/AST 11 U/L (15-37); SGPT/ALT 19 U/L (13-61); SODIUM 144 mmol/L (136-145); TOT PROT 6.7 g/dl (6.4-8.2)
[2018-06-17 08:39] LABS: GLUCOSE,RANDOM 546 mg/dL (74-106)
[2018-06-17 08:40] LABS: ARTERIAL BLOOD GAS PCO2 16.7 mmHg (35-45)
[2018-06-17] MEDS ORDERED: POTASSIUM CHLORIDE ORAL LIQUID 20 MEQ/15 ML PO ONE (09:12)
[2018-06-17] MEDS: PANTOPRAZOLE SODIUM 40 MG VIAL IVPUSH SCH ×2 (09:21→21:11)
[2018-06-17] MEDS: MUPIROCIN 2% TOPICAL OINTMENT FOR DECOLONIZATION NS SCH ×2 (09:21→23:34)
--- NOTE | 2018-06-17 09:41 | EKG ---
Test Reason : Blood Pressure : / mmHG Vent. Rate : 116 BPM Atrial Rate : 116 BPM P-R Int : 122 ms QRS Dur : 090 ms QT Int : 340 ms P-R-T Axes : 075 078 038 degrees QTc Int : 472 ms SINUS TACHYCARDIA POSSIBLE LEFT ATRIAL ENLARGEMENT BORDERLINE ECG WHEN COMPARED WITH ECG OF 17-NOV-2017 16:56, NO SIGNIFICANT CHANGE WAS FOUND Confirmed by KAILASH CABRERA MD ([id number] on 06/17/2018 9:41:29 AM Referred By: Confirmed By:KAILASH CABRERA MD
[2018-06-17] MEDS ORDERED: HEPARIN NA (PORCINE) 5,000 UNITS/ML 1ML VIAL SQ SCH (10:00)
[2018-06-17] MEDS ORDERED: POTASSIUM PHOSPHATE 30 MM in SODIUM CHLORIDE 250 ML IVPB ONE (10:06)
[2018-06-17] MEDS ORDERED: SODIUM CHLORIDE 0.9%/KCL 20 MEQ/1,000 ML INFUS.BAG IV SCH (10:15)
[2018-06-17] MEDS ORDERED: SODIUM CHLORIDE 0.45% 1,000 ML with POTASSIUM CHLORIDE 40 MEQ IVPB SCH (10:30)
[2018-06-17] MEDS ORDERED: SODIUM CHLORIDE 0.45% 1,000 ML with POTASSIUM CHLORIDE 40 MEQ IV SCH (10:35)
[2018-06-17] MEDS ORDERED: D5-1/2NS+40 MEQ KCL - 40 MEQ/1,000 ML INFUS.BAG IV SCH (11:15)
[2018-06-17] MEDS ORDERED: HEMOQUE TEST 1 EACH EACH ONE (11:36)
--- NOTE | 2018-06-17 12:00 | PN ---
Progress Note (short form) - Note Progress Note: Patient seen and examined at bedside Patient lost IV access in ED and could not get fluids or insulin gtt IVs placed and fluids/insulin gtt/electrolyte repletions started No episodes of vomiting while in ICU Vital Signs Temperature 98.4 F 06/17/18 08:00 Pulse Rate 107 H 06/17/18 10:00 Respiratory Rate 24 H 06/17/18 10:00 Blood Pressure 129/67 06/17/18 10:00 O2 Sat by Pulse Oximetry (%) 98 06/17/18 04:29 PE: NAD mildly lethargic able to answer questions when given noxious stimulus PERRLA NCAT CTAB Tachycardic Soft non tender non distended no lower extremity edema 06/16/18 06/16/18 06/16/18 23:30 23:50 23:59 WBC 16.1 H RBC 2.83 L Hgb 7.8 L Hct 25.3 L D MCV 89.1 MCHC 30.7 L RDW 18.8 H Plt Count 367 D Neutrophils % 86.9 H D Lymphocytes % 7.7 L D Monocytes % 4.1 Eosinophils % 0.0 D Basophils % 1.3 D Sodium 143 Potassium 4.0 Chloride 114 H Carbon Dioxide 4 L Anion Gap 24 H BUN 35 H Creatinine 1.1 Blood Type A NEGATIVE Antibody Screen Negative 06/17/18 06/17/18 06/17/18 02:30 07:44 07:44 WBC 24.9 H RBC 3.57 L Hgb 9.4 L Hct 31.1 L D MCV 87.0 MCHC 30.1 L RDW 18.2 H Plt Count 406 Neutrophils % 83.4 H Lymphocytes % 10.0 D Monocytes % 5.6 Eosinophils % 0.1 D Basophils % 0.9 Sodium 133 L 144 Potassium 6.3 H* 3.7 Chloride 100 118 H Carbon Dioxide 5 L 7 L Anion Gap 27 H 20 H BUN 52 H 46 H Creatinine 1.8 H 1.7 H Blood Type Antibody Screen 06/16/18 23:59 Blood Culture - Pending Blood - Peripheral Venous 06/16/18 23:30 Blood Culture - Pending Blood - Peripheral Venous 06/16/18 23:17 Urine Culture - Pending Urine - Urine Clean Catch A/P: 48F with multiple medical problems in DKA likely from insulin/diet non compliance Neuro lethargic but improved Recent CVA with residual left hemiparesis CV HTN HLD Currently being fluid resuscitated GI NPO for now until more awake and able to tolerate PO Patient seen by GI for possible coffee grounds emesis. Patient needs to have acute issues (DKA) resolved if any intervention is going to be considered No further vomiting episodes continue to trend CBC PPI for PPx Endocrinology Patient has DM-uncontrolled with multiple admissions for DKA Patient currently in diabetic ketoacidosis Was very acidotic and was transiently on bicarb gtt now stopped change IVF to contain potassium (D5 1/2 NS with 40MeQ of potassium) give levemir when gap closes and give her a diet trend BMP q4h Will place perez for urine output monitoring and strict I/Os Acute kidney injury-improved with IVF hydration Electrolytes Metabolic acidosis was hyperkalemic but with insulin gtt will now need to supplement potassium in fluids and replete PRN hypophosphatemia- will replete with Kphos trend electrolytes and replete PRN HEME f/u iron studies continue trending CBC Patient seen by GI for possible coffee grounds emesis. Patient needs to have acute issues (DKA) resolved if any intervention is going to be considered No further vomiting episodes HSQ for DVT PPx ID Lactic acidosis resolved with IVF boluses Do not suspect infection as cause for DKA will f/u cultures got vanco/zosyn in ER but will hold off on further ABx pending cultures Dispo: ICU care CCTime 35 min
--- NOTE | 2018-06-17 12:06 | PN ---
Teaching Attending Note Name of Resident: Leonardo Marinelli ATTENDING PHYSICIAN STATEMENT I saw and evaluated the patient. I reviewed the resident's note and discussed the case with the resident. I agree with the resident's findings and plan as documented. SUBJECTIVE: Pt seen and examined in the ICU. Remains on insulin gtt. Somnolent but arousable. No fevers recorded. OBJECTIVE: Vital Signs Period Temp Pulse Resp BP Sys/Rapp Pulse Ox Last 24 Hr 96.8 F-98.7 F 107-122 22-30 86-142/61-96 97-100 Intake & Output 06/14/18 06/15/18 06/16/18 06/17/18 23:59 23:59 23:59 23:59 Intake Total 1780 Output Total 1300 Balance 480 Weight 58.967 kg 61.507 kg Gen: somnolent Heart: tachycardic, regular Lung: decreased breath sounds at the bases Abd: soft, nontender Ext: no edema CBC, BMP 06/17/18 07:44 06/17/18 07:44 Active Medications Chlorhexidine Gluconate (Hibiclens For Decolonization -) 1 applic TP HS [facility] Heparin Sodium (Porcine) (Heparin -) 5,000 unit SQ TID [facility] Insulin Human Regular 100 (units/ Sodium Chloride) 100 mls @ 15.37 mls/hr IVPB TITR [facility]; Protocol Last Titration: 06/17/18 10:30 Dose: 0.09 units/kg/hr, 6 mls/hr Potassium Phosphate 30 mm/ (Sodium Chloride) 260 mls @ 62.5 mls/hr IVPB ONCE ONE Stop: 06/17/18 14:15 Last Admin: 06/17/18 10:54 Dose: 62.5 mls/hr Dextrose/Sodium Chloride (D5-1/2ns+40 Meq Kcl -) 40 meq in 1,000 mls @ 125 mls/ hr IV ASDIR [facility] Last Admin: 06/17/18 11:00 Dose: 125 mls/hr Lorazepam (Ativan Injection -) 1 mg IVPUSH Q6H PRN PRN Reason: ANXIETY Last Admin: 06/17/18 07:45 Dose: 1 mg Mupirocin (Bactroban Ointment (For Decolonization) -) 1 applic NS BID [facility] Stop: 06/22/18 09:59 Last Admin: 06/17/18 09:21 Dose: 1 applic Ondansetron HCl (Zofran Injection) 4 mg IVPUSH Q6H PRN PRN Reason: NAUSEA Last Admin: 06/17/18 05:10 Dose: 4 mg Pantoprazole Sodium (Protonix Iv) 40 mg IVPUSH BID [facility] Last Admin: 06/17/18 09:21 Dose: 40 mg ASSESSMENT AND PLAN: Diabetic Ketoacidosis Acute Kidney Injury HTN Hyperlipidemia Diabetic Gastroparesis h/o CVA - insulin gtt until anion gap closed - check BMP q4h, BGM q1h until anion gap closed - add D5 to IVF if BGM <250, K to IVF if <4.5 while on insulin gtt - f/u cultures - replete lytes - monitor urine output, creatinine - protonix - DVT prophylaxis - ICU monitoring critical care time spent in reviewing chart, evaluating patient and formulating plan 35 min
[2018-06-17 12:21] LABS: ANISOCYTOSIS 1+; MACROCYTOSIS 1+; OVALOCYTE 1+; PLATELET ESTIMATE NORMAL
[2018-06-17 12:42] LABS: ANION GAP 10 MMOL/L (8-16); BLOOD UREA NITROGEN 37 mg/dL (7-18); CALCIUM 8.5 mg/dL (8.5-10.1); CHLORIDE 124 mmol/L (98-107); CO2 16 mmol/L (21-32); CREATININE 1.3 mg/dL (0.55-1.3); GLUCOSE,RANDOM 232 mg/dL (74-106); MAGNESIUM 2.1 mg/dL (1.8-2.4); PHOSPHOROUS 1.6 mg/dL (2.5-4.9); POTASSIUM 4.1 mmol/L (3.5-5.1); SODIUM 150 mmol/L (136-145)
[2018-06-17] MEDS ORDERED: INSULIN (LEVEMIR) 100 UNITS/ML UNITS SQ ONE (13:14)
--- NOTE | 2018-06-17 13:50 | CON.GI ---
Consult Consult Specialty:: Gastroenterology Referred by:: Dr. Yepez Reason for Consultation:: Coffee ground emesis - History of Present Illness History of Present Illness: 48yo female h/o IDDM, CVA, gastroparesis, esophageal stricture s/p dilations presenting with altered mental status and hyperglycemia being treated for DKA, asked to evaluate for coffee ground emesis. Pt is a poor historian and provides limited history, reports she is admitted with DKA similar to previous episodes. She reports episode of dark vomitus yesterday, with no recurrent episodes, denies bright blood. Per nursing staff, scant dark contents seen at pts mouth. Reports mild abdominal pain denies further dysphagia or n/v. Denies melena or hematochezia. Asking to drink tea on my evaluation. Of note, pt has had recent prior EGDs with dilation (12/2017, 2017) by Dr. Jj Ortiz, most recently performed on 01/30/18 revealing distal esophageal stricture with dilation to 16mm performed. Pt admitted to ICU on insulin gtt and started on protonix bid for concern for GI bleed. Hb 7.8 --> 9.4, no prbc transfusion was administered. Baseline Hb ~10- 11. 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: CVA (right MCA), Migraine Gastrointestinal: Yes: Other (Gastroparesis) ...LMP: 04/14/13 ...: No Musculoskeletal: Yes: Chronic low back pain Endocrine: Yes: Diabetes Mellitus Additional Medical History: dka in the past - Past Surgical History Past Surgical History: Yes: Cholecystectomy - Alcohol/Substance Use Hx Alcohol Use: No History of Substance Use: reports: None - Smoking History Smoking history: Current every day smoker Have you smoked in the past 12 months: Yes Aproximately how many cigarettes per day: 8 - Social History ADL: Independent History of Recent Travel: No Home Medications - Allergies Allergies/Adverse Reactions: Allergies Allergy/AdvReac Type Severity Reaction Status Date / Time No Known Allergies Allergy Verified 06/16/18 22:40 - Home Medications Home Medications: Ambulatory Orders Aspirin [ASA -] 325 mg PO HS 11/20/17 Atorvastatin Ca [Lipitor] 10 mg PO HS 11/20/17 Insulin (Levemir) [Levemir Vial] 10 unit SQ HS 11/20/17 Insulin (Novolog) [Novolog -] See Protocol SQ AC PRN 11/20/17 Pantoprazole Sodium [Protonix] 40 mg PO BID 11/20/17 Ibuprofen [Motrin -] 600 mg PO TID PRN #21 tablet 01/31/18 Methocarbamol [Robaxin -] 500 mg PO BID PRN #14 tablet 01/31/18 Amoxicillin/Potassium Clav [Augmentin 875-125 Tablet] 875 mg PO DAILY 06/17/18 Family Disease History - Family Disease History Family Disease History: Heart Disease: Father (cad) Review of Systems - Review of Systems Constitutional: reports: No Symptoms Cardiovascular: reports: No Symptoms Respiratory: reports: No Symptoms Musculoskeletal: reports: Back Pain Physical Exam-GI Vital Signs: Vital Signs Temperature 98.4 F 06/17/18 08:00 Pulse Rate 107 H 06/17/18 10:00 Respiratory Rate 24 H 06/17/18 10:00 Blood Pressure 129/67 06/17/18 10:00 O2 Sat by Pulse Oximetry (%) 98 06/17/18 04:29 Constitutional: Yes: Other (Somnolent, slightly restless, no acute respiratory distress) Cardiovascular: Yes: WNL Respiratory: Yes: WNL Gastrointestinal Inspection: Yes: Ascites, Other (Abd soft, mildly tender on palpation diffusely, nondistended, no rebound, guarding or rigidity) ...Rectal Exam: Yes: Other (Pt refused) Labs: CBC, BMP 06/17/18 07:44 06/17/18 12:00 Imaging - Results Cat Scan: Report Reviewed Problem List - Problems (1) Coffee ground emesis Code(s): K92.0 - HEMATEMESIS Assessment/Plan 48yo female h/o poorly controlled IDDM, CVA, gastroparesis, distal esophageal stricture s/p dilations (last performed 01/30/18) presenting with altered mental status and hyperglycemia being treated for DKA on insulin gtt, asked to evaluate for coffee ground emesis. Decline in Hb noted though normalizing without prbc transfusions. Possible etiology include esophagitis (seen on prior EGD in 12/2017), gastritis, PUD, AVMs. No further evidence of overt GI bleeding, pt refused rectal exam. -Continue to closely monitor Hb and for evidence of bleeding -Continue PPI bid for now -Avoid NSAIDs -Follow up iron studies/ferritin -As patient continues to be optimized and managed for DKA with electrolyte disturbances and increasing leucocytosis would defer EGD at this time in absence of overt or ongoing GI bleed. Pending course and once further optimized however may consider endoscopic evaluation. -Closely monitor and replete electrolytes as needed -Infectious workup per primary team -If further overt GI bleeding (hematemesis, melena or hematochezia) with acute drop in Hb not responding to prbc transfusion or if hemodynamically unstable, please call GI for possible more urgent intervention. Discussed with MICU team.
[2018-06-17] MEDS: HEPARIN NA (PORCINE) 5,000 UNITS/ML 1ML VIAL SQ SCH ×2 (13:54→21:10)
--- NOTE | 2018-06-17 14:28 | PN ---
Teaching Attending Note Name of Resident: Audi Lacey ATTENDING PHYSICIAN STATEMENT I saw and evaluated the patient. I reviewed the resident's note and discussed the case with the resident. I agree with the resident's findings and plan as documented with exceptions below. SUBJECTIVE: Patient seen and examined. Not very co-operative with interview, attempting to vomit. Unable to do detailed ROS, denies any pain currently. OBJECTIVE: Vital Signs Period Temp Pulse Resp BP Sys/Rapp Pulse Ox Last 24 Hr 96.8 F-99.4 F 107-122 22-30 86-142/55-96 97-100 Intake & Output 06/14/18 06/15/18 06/16/18 06/17/18 23:59 23:59 23:59 23:59 Intake Total 1780 Output Total 4300 Balance -2520 Weight 130 lb 135 lb 9.6 oz General: lying in bed, attempting to vomit, in bed, mild tachypnea Neck: soft, supple, no JVD Chest: limited exam due to lack of co-operation, no rales or wheezing Abdomen:Soft, NT, ND, positive bowel sounds, no voluntary or involuntary guarding or rigidity Extremities: no edema Neuro: AAOX3, moves all extremities freely but no co-operative with instructions /commands Home Medications Medication Instructions Recorded Aspirin [ASA -] 325 mg PO HS 11/20/17 Atorvastatin Ca [Lipitor] 10 mg PO HS 11/20/17 Insulin (Levemir) [Levemir Vial] 10 unit SQ HS 11/20/17 Insulin (Novolog) [Novolog -] See Protocol SQ AC PRN 11/20/17 Pantoprazole Sodium [Protonix] 40 mg PO BID 11/20/17 Ibuprofen [Motrin -] 600 mg PO TID PRN #21 tablet 01/31/18 Methocarbamol [Robaxin -] 500 mg PO BID PRN #14 tablet 01/31/18 Amoxicillin/Potassium Clav 875 mg PO DAILY 06/17/18 [Augmentin 875-125 Tablet] Active Medications Chlorhexidine Gluconate (Hibiclens For Decolonization -) 1 applic TP HS [facility] Heparin Sodium (Porcine) (Heparin -) 5,000 unit SQ TID [facility] Last Admin: 06/17/18 13:54 Dose: 5,000 unit Dextrose/Sodium Chloride (D5-1/2ns+40 Meq Kcl -) 40 meq in 1,000 mls @ 125 mls/ hr IV ASDIR [facility] Last Admin: 06/17/18 11:00 Dose: 125 mls/hr Lorazepam (Ativan Injection -) 1 mg IVPUSH Q6H PRN PRN Reason: ANXIETY Last Admin: 06/17/18 07:45 Dose: 1 mg Mupirocin (Bactroban Ointment (For Decolonization) -) 1 applic NS BID [facility] Stop: 06/22/18 09:59 Last Admin: 06/17/18 09:21 Dose: 1 applic Ondansetron HCl (Zofran Injection) 4 mg IVPUSH Q6H PRN PRN Reason: NAUSEA Last Admin: 06/17/18 05:10 Dose: 4 mg Pantoprazole Sodium (Protonix Iv) 40 mg IVPUSH BID [facility] Last Admin: 06/17/18 09:21 Dose: 40 mg Laboratory Results - last 24 hr 06/16/18 06/16/18 06/16/18 23:17 23:30 23:50 WBC 16.1 H RBC 2.83 L Hgb 7.8 L Hct 25.3 L D MCV 89.1 MCH 27.4 MCHC 30.7 L RDW 18.8 H Plt Count 367 D MPV 8.1 Absolute Neuts (auto) 14.0 H Neutrophils % 86.9 H D Neutrophils % (Manual) Band Neutrophils % Lymphocytes % 7.7 L D Lymphocytes % (Manual) Monocytes % 4.1 Monocytes % (Manual) Eosinophils % 0.0 D Eosinophils % (Manual) Basophils % 1.3 D Basophils % (Manual) Myelocytes % (Man) Promyelocytes % (Man) Blast Cells % (Manual) Nucleated RBC % 0 Metamyelocytes Hypochromia Platelet Estimate Polychromasia Poikilocytosis Anisocytosis Microcytosis Macrocytosis Ovalocytes Retic Count Puncture Site ABG pH ABG pCO2 at Pt Temp ABG pO2 at Pt Temp ABG HCO3 ABG O2 Sat (Measured) ABG O2 Content ABG Base Excess Atul Test VBG pH POC VBG pCO2 POC VBG pO2 Mixed VBG HCO3 Oxygen Flow Rate Sodium Potassium Chloride Carbon Dioxide Anion Gap BUN Creatinine Creat Clearance w eGFR POC Glucometer Random Glucose Hemoglobin A1c % Lactic Acid Calcium Phosphorus Magnesium Total Bilirubin AST ALT Alkaline Phosphatase Creatine Kinase Troponin I Total Protein Albumin Serum , Qual Urine Color Colorless Urine Appearance Clear Urine pH 5.0 Ur Specific [place] 1.021 Urine Protein Negative Urine Glucose (UA) 3+ H Urine Ketones 2+ H Urine Blood Negative Urine Nitrite Negative Urine Bilirubin Negative Urine Urobilinogen Negative Ur Leukocyte Esterase Negative Opiates Screen Methadone Screen Barbiturate Screen Phencyclidine Screen Ur Amphetamines Screen MDMA (Ecstasy) Screen Benzodiazepines Screen Cocaine Screen U Marijuana (THC) Screen Acetone, Qual Blood Type A NEGATIVE Antibody Screen Negative Crossmatch See Detail 06/16/18 06/16/18 06/16/18 23:50 23:50 23:59 WBC RBC Hgb Hct MCV MCH MCHC RDW Plt Count MPV Absolute Neuts (auto) Neutrophils % Neutrophils % (Manual) Band Neutrophils % Lymphocytes % Lymphocytes % (Manual) Monocytes % Monocytes % (Manual) Eosinophils % Eosinophils % (Manual) Basophils % Basophils % (Manual) Myelocytes % (Man) Promyelocytes % (Man) Blast Cells % (Manual) Nucleated RBC % Metamyelocytes Hypochromia Platelet Estimate Polychromasia Poikilocytosis Anisocytosis Microcytosis Macrocytosis Ovalocytes Retic Count Puncture Site ABG pH ABG pCO2 at Pt Temp ABG pO2 at Pt Temp ABG HCO3 ABG O2 Sat (Measured) ABG O2 Content ABG Base Excess Atul Test VBG pH POC VBG pCO2 POC VBG pO2 Mixed VBG HCO3 Oxygen Flow Rate Sodium Potassium Chloride Carbon Dioxide Anion Gap BUN Creatinine Creat Clearance w eGFR POC Glucometer Random Glucose Hemoglobin A1c % Lactic Acid 3.1 H* Calcium Phosphorus 5.5 H Magnesium 1.9 Total Bilirubin AST ALT Alkaline Phosphatase Creatine Kinase Troponin I Total Protein Albumin Serum , Qual Negative Urine Color Urine Appearance Urine pH Ur Specific [place] Urine Protein Urine Glucose (UA) Urine Ketones Urine Blood Urine Nitrite Urine Bilirubin Urine Urobilinogen Ur Leukocyte Esterase Opiates Screen Methadone Screen Barbiturate Screen Phencyclidine Screen Ur Amphetamines Screen MDMA (Ecstasy) Screen Benzodiazepines Screen Cocaine Screen U Marijuana (THC) Screen Acetone, Qual Blood Type Antibody Screen Crossmatch 06/16/18 06/16/18 06/17/18 23:59 23:59 02:30 WBC RBC Hgb Hct MCV MCH MCHC RDW Plt Count MPV Absolute Neuts (auto) Neutrophils % Neutrophils % (Manual) Band Neutrophils % Lymphocytes % Lymphocytes % (Manual) Monocytes % Monocytes % (Manual) Eosinophils % Eosinophils % (Manual) Basophils % Basophils % (Manual) Myelocytes % (Man) Promyelocytes % (Man) Blast Cells % (Manual) Nucleated RBC % Metamyelocytes Hypochromia Platelet Estimate Polychromasia Poikilocytosis Anisocytosis Microcytosis Macrocytosis Ovalocytes Retic Count Puncture Site ABG pH ABG pCO2 at Pt Temp ABG pO2 at Pt Temp ABG HCO3 ABG O2 Sat (Measured) ABG O2 Content ABG Base Excess Atul Test VBG pH 7.06 L* POC VBG pCO2 12.9 L* D POC VBG pO2 58.9 H Mixed VBG HCO3 3.4 L* Oxygen Flow Rate Sodium 143 133 L Potassium 4.0 6.3 H* Chloride 114 H 100 Carbon Dioxide 4 L 5 L Anion Gap 24 H 27 H BUN 35 H 52 H Creatinine 1.1 1.8 H Creat Clearance w eGFR 52.79 29.91 POC Glucometer Random Glucose 717 H* 1085 H* Hemoglobin A1c % Lactic Acid Calcium 6.3 L* 8.8 Phosphorus Magnesium 2.9 H Total Bilirubin 0.4 AST 12 L ALT 14 Alkaline Phosphatase 78 Creatine Kinase 37 Troponin I < 0.02 Total Protein 5.1 L Albumin 2.6 L Serum , Qual Urine Color Urine Appearance Urine pH Ur Specific [place] Urine Protein Urine Glucose (UA) Urine Ketones Urine Blood Urine Nitrite Urine Bilirubin Urine Urobilinogen Ur Leukocyte Esterase Opiates Screen Methadone Screen Barbiturate Screen Phencyclidine Screen Ur Amphetamines Screen MDMA (Ecstasy) Screen Benzodiazepines Screen Cocaine Screen U Marijuana (THC) Screen Acetone, Qual Positive large 3+ H Blood Type Antibody Screen Crossmatch 06/17/18 06/17/18 06/17/18 04:01 05:30 05:35 WBC RBC Hgb Hct MCV MCH MCHC RDW Plt Count MPV Absolute Neuts (auto) Neutrophils % Neutrophils % (Manual) Band Neutrophils % Lymphocytes % Lymphocytes % (Manual) Monocytes % Monocytes % (Manual) Eosinophils % Eosinophils % (Manual) Basophils % Basophils % (Manual) Myelocytes % (Man) Promyelocytes % (Man) Blast Cells % (Manual) Nucleated RBC % Metamyelocytes Hypochromia Platelet Estimate Polychromasia Poikilocytosis Anisocytosis Microcytosis Macrocytosis Ovalocytes Retic Count Puncture Site ABG pH ABG pCO2 at Pt Temp ABG pO2 at Pt Temp ABG HCO3 ABG O2 Sat (Measured) ABG O2 Content ABG Base Excess Atul Test VBG pH POC VBG pCO2 POC VBG pO2 Mixed VBG HCO3 Oxygen Flow Rate Sodium Potassium Chloride Carbon Dioxide Anion Gap BUN Creatinine Creat Clearance w eGFR POC Glucometer > 400 > 400 Random Glucose Hemoglobin A1c % Lactic Acid Calcium Phosphorus Magnesium Total Bilirubin AST ALT Alkaline Phosphatase Creatine Kinase Troponin I Total Protein Albumin Serum , Qual Urine Color Urine Appearance Urine pH Ur Specific [place] Urine Protein Urine Glucose (UA) Urine Ketones Urine Blood Urine Nitrite Urine Bilirubin Urine Urobilinogen Ur Leukocyte Esterase Opiates Screen Negative Methadone Screen Negative Barbiturate Screen Negative Phencyclidine Screen Negative Ur Amphetamines Screen Negative MDMA (Ecstasy) Screen Negative Benzodiazepines Screen Negative Cocaine Screen Negative U Marijuana (THC) Screen Negative Acetone, Qual Blood Type Antibody Screen Crossmatch 06/17/18 06/17/18 06/17/18 06:25 07:44 07:44 WBC 24.9 H RBC 3.57 L Hgb 9.4 L Hct 31.1 L D MCV 87.0 MCH 26.2 MCHC 30.1 L RDW 18.2 H Plt Count 406 MPV 7.8 Absolute Neuts (auto) 20.8 H Neutrophils % 83.4 H Neutrophils % (Manual) 77.2 Band Neutrophils % 3.0 Lymphocytes % 10.0 D Lymphocytes % (Manual) 12.9 Monocytes % 5.6 Monocytes % (Manual) 6 D Eosinophils % 0.1 D Eosinophils % (Manual) 0.0 Basophils % 0.9 Basophils % (Manual) 0.0 Myelocytes % (Man) 0 Promyelocytes % (Man) 0 Blast Cells % (Manual) 0 Nucleated RBC % 0 Metamyelocytes 1 Hypochromia 0 Platelet Estimate Normal Polychromasia 0 Poikilocytosis 2+ Anisocytosis 1+ Microcytosis 1+ Macrocytosis 1+ Ovalocytes 1+ Retic Count 1.66 H Puncture Site ABG pH ABG pCO2 at Pt Temp ABG pO2 at Pt Temp ABG HCO3 ABG O2 Sat (Measured) ABG O2 Content ABG Base Excess Atul Test VBG pH POC VBG pCO2 POC VBG pO2 Mixed VBG HCO3 Oxygen Flow Rate Sodium Potassium Chloride Carbon Dioxide Anion Gap BUN Creatinine Creat Clearance w eGFR POC Glucometer > 400 Random Glucose Hemoglobin A1c % Lactic Acid Calcium Phosphorus Magnesium Total Bilirubin AST ALT Alkaline Phosphatase Creatine Kinase Troponin I Total Protein Albumin Serum , Qual Urine Color Urine Appearance Urine pH Ur Specific [place] Urine Protein Urine Glucose (UA) Urine Ketones Urine Blood Urine Nitrite Urine Bilirubin Urine Urobilinogen Ur Leukocyte Esterase Opiates Screen Methadone Screen Barbiturate Screen Phencyclidine Screen Ur Amphetamines Screen MDMA (Ecstasy) Screen Benzodiazepines Screen Cocaine Screen U Marijuana (THC) Screen Acetone, Qual Blood Type Antibody Screen Crossmatch 06/17/18 06/17/18 06/17/18 07:44 07:44 07:44 WBC RBC Hgb Hct MCV MCH MCHC RDW Plt Count MPV Absolute Neuts (auto) Neutrophils % Neutrophils % (Manual) Band Neutrophils % Lymphocytes % Lymphocytes % (Manual) Monocytes % Monocytes % (Manual) Eosinophils % Eosinophils % (Manual) Basophils % Basophils % (Manual) Myelocytes % (Man) Promyelocytes % (Man) Blast Cells % (Manual) Nucleated RBC % Metamyelocytes Hypochromia Platelet Estimate Polychromasia Poikilocytosis Anisocytosis Microcytosis Macrocytosis Ovalocytes Retic Count Puncture Site ABG pH ABG pCO2 at Pt Temp ABG pO2 at Pt Temp ABG HCO3 ABG O2 Sat (Measured) ABG O2 Content ABG Base Excess Atul Test VBG pH POC VBG pCO2 POC VBG pO2 Mixed VBG HCO3 Oxygen Flow Rate Sodium 144 Potassium 3.7 Chloride 118 H Carbon Dioxide 7 L Anion Gap 20 H BUN 46 H Creatinine 1.7 H Creat Clearance w eGFR 31.94 POC Glucometer Random Glucose 546 H* Hemoglobin A1c % 10.4 H Lactic Acid 3.5 H* Calcium 8.5 Phosphorus 1.4 L Magnesium 2.5 H Total Bilirubin 0.3 AST 11 L ALT 19 Alkaline Phosphatase 98 Creatine Kinase Troponin I Total Protein 6.7 Albumin 3.3 L Serum , Qual Urine Color Urine Appearance Urine pH Ur Specific [place] Urine Protein Urine Glucose (UA) Urine Ketones Urine Blood Urine Nitrite Urine Bilirubin Urine Urobilinogen Ur Leukocyte Esterase Opiates Screen Methadone Screen Barbiturate Screen Phencyclidine Screen Ur Amphetamines Screen MDMA (Ecstasy) Screen Benzodiazepines Screen Cocaine Screen U Marijuana (THC) Screen Acetone, Qual Blood Type Antibody Screen Crossmatch 06/17/18 06/17/18 06/17/18 07:52 12:00 12:00 WBC RBC Hgb Hct MCV MCH MCHC RDW Plt Count MPV Absolute Neuts (auto) Neutrophils % Neutrophils % (Manual) Band Neutrophils % Lymphocytes % Lymphocytes % (Manual) Monocytes % Monocytes % (Manual) Eosinophils % Eosinophils % (Manual) Basophils % Basophils % (Manual) Myelocytes % (Man) Promyelocytes % (Man) Blast Cells % (Manual) Nucleated RBC % Metamyelocytes Hypochromia Platelet Estimate Polychromasia Poikilocytosis Anisocytosis Microcytosis Macrocytosis Ovalocytes Retic Count Puncture Site Right brachial ABG pH 7.20 L* ABG pCO2 at Pt Temp 16.7 L* ABG pO2 at Pt Temp 137.0 H D ABG HCO3 6.3 L* ABG O2 Sat (Measured) 98.4 ABG O2 Content 12.4 L ABG Base Excess -20.5 L* Atul Test Positive VBG pH POC VBG pCO2 POC VBG pO2 Mixed VBG HCO3 Oxygen Flow Rate Yes Sodium 150 H Potassium 4.1 Chloride 124 H Carbon Dioxide 16 L Anion Gap 10 BUN 37 H Creatinine 1.3 Creat Clearance w eGFR 43.54 POC Glucometer Random Glucose 232 H Hemoglobin A1c % Lactic Acid 3.0 H* Calcium 8.5 Phosphorus 1.6 L Magnesium 2.1 Total Bilirubin AST ALT Alkaline Phosphatase Creatine Kinase Troponin I Total Protein Albumin Serum , Qual Urine Color Urine Appearance Urine pH Ur Specific [place] Urine Protein Urine Glucose (UA) Urine Ketones Urine Blood Urine Nitrite Urine Bilirubin Urine Urobilinogen Ur Leukocyte Esterase Opiates Screen Methadone Screen Barbiturate Screen Phencyclidine Screen Ur Amphetamines Screen MDMA (Ecstasy) Screen Benzodiazepines Screen Cocaine Screen U Marijuana (THC) Screen Acetone, Qual Blood Type Antibody Screen Crossmatch CT head/C-spine results reviewed EKG Sinus tach 116 ASSESSMENT AND PLAN: 48 yof with PMhx of HTN, CVA (left sided hemiparesis), HLD, IDDM, DKA, Dysphagia , Gastroparesis, esophageal stricture (EGD 02/14), recurrent admission with DKA, non compliance admitted with severe DKA -Severe DKA, from medication non compliance -Severe hypophosphatemia -GIANCARLO, from hypovolumia, osmotic diuresis -Severe hyperglycemia -Leucocytosis, suspect from stress/dehydration/DKA, no focal s/s concerning for infection currently -hyperkalemia, from severe hyperglycemia -Dehydration -Nausea, vomitting, ?From DKA vs gastroparesis -?hematemesis -HTN -HLD -IDDM -Dysphagia -Diabetic gastroparesis -Esophageal stricture (EGD 02/14) -Right MCA CVA with left hemiparesis Plan Insulin drip till anion gap closed. Transition to Levemir 20-25 units BID (no recent medication refill per discussion with pharmacy). Change IVF to D51/2 NS with K when BG < 250 and K < 4.5 BGM q1h and BMP q4h. repeat H/h later today. GI input noted. protonix 40 mg IV BID for now. Change to Reglan prn for vomitting. Monitor for focal s/s concerning for infection. Avoid sedatives. Monitor renal function, avoid nephrotoxins, renal dosing of meds. DVTPPX, heparin with caution Critically ill with multiple organ system involvement. Plan coordinated with nursing and ICU team Total critical care time spent 40 min.
--- NOTE | 2018-06-17 16:48 | CONSULT ---
Consult Consult Specialty:: Endocrinology Referred by:: Nikita Desir MD Reason for Consultation:: DKA - History of Present Illness Chief Complaint: AMS History of Present Illness: This is a 48 yo F with h/o HTN, CVA (left sided hemiparesis), HLD, T1DM, DKA, Dysphagia, Gastroparesis, esophageal stricture (EGD 02/14), who presented to ED with AMS, n/v, elevated blood sugars, and back pain s/p fall. Per EMS, the patient was found on the ground minimally responsive with a blood sugar of greater than 500. The patient has had multiple presentations in the past for DKA. Pt found to be in DKA with high anion gap. Was treated with IV Insulin and IV hydration with resolution of Anion gap. Pt currently off Insulin drip. Is drowsy after getting Ativan for agitation and refuses to answer questions. 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: CVA (right MCA), Migraine Gastrointestinal: Yes: Other (Gastroparesis) ...LMP: 04/14/13 ...: No Musculoskeletal: Yes: Chronic low back pain Endocrine: Yes: Diabetes Mellitus Additional Medical History: dka in the past - Past Surgical History Past Surgical History: Yes: Cholecystectomy - Alcohol/Substance Use Hx Alcohol Use: No History of Substance Use: reports: None - Smoking History Smoking history: Current every day smoker Have you smoked in the past 12 months: Yes Aproximately how many cigarettes per day: 8 - Social History ADL: Independent History of Recent Travel: No Home Medications - Allergies Allergies/Adverse Reactions: Allergies Allergy/AdvReac Type Severity Reaction Status Date / Time No Known Allergies Allergy Verified 06/16/18 22:40 Family Disease History - Family Disease History Family Disease History: Heart Disease: Father (cad) Review of Systems Unable to obtain ROS, reason: Drowsy, uncooperative Physical Exam Vital Signs: Vital Signs Temperature 99.9 F H 06/17/18 16:00 Pulse Rate 99 H 06/17/18 16:00 Respiratory Rate 24 H 06/17/18 16:00 Blood Pressure 124/74 06/17/18 16:00 O2 Sat by Pulse Oximetry (%) 98 06/17/18 04:29 Constitutional: Yes: Other (Drowsy) Eyes: Yes: Conjunctiva Clear HENT: Yes: Atraumatic, Normocephalic Neck: Yes: Supple, Trachea Midline Cardiovascular: Yes: Regular Rate and Rhythm Respiratory: Yes: Regular, CTA Bilaterally Gastrointestinal: Yes: Normal Bowel Sounds, Soft Extremities: Yes: WNL Edema: No Neurological: Yes: Other (Drowsy, open eyes to stimuli) Labs: CBC, BMP 06/17/18 07:44 06/17/18 12:00 Assessment/Plan AP: T1DM DKA Gastroparesis Levemir 25 units given BGM Q 2hr Novolog SS coverage D5 1/2NS [facility] 120 to 200 Electrolyte replacement as necessary Discussed with ICU housestaff. Will F/u
[2018-06-17] MEDS: D5-1/2NS+40 MEQ KCL - 40 MEQ/1,000 ML INFUS.BAG IV SCH ×2 (17:00→23:35)
[2018-06-17] MEDS: METOCLOPRAMIDE HCL INJECTION 10 MG/2 ML VIAL IVPUSH PRN (19:01)
[2018-06-17] MEDS: INSULIN SLIDING SCALE (NOVOLOG) 1 VIAL SQ SCH (21:10)
[2018-06-17] MEDS: CHLORHEXIDINE GLUCONATE 4% CLEANSER FOR DECOLONIZATION TP SCH (21:10)
[2018-06-18 04:17] LABS: SERUM IRON SATURATION 3 % (15-55); TOTAL IRON BINDING CAPACITY 448 ug/dL (250-450); UIBC 436 ug/dL (131-425)
[2018-06-18] MEDS: HEPARIN NA (PORCINE) 5,000 UNITS/ML 1ML VIAL SQ SCH ×3 (05:59→21:35)
[2018-06-18] MEDS: INSULIN SLIDING SCALE (NOVOLOG) 1 VIAL SQ SCH ×4 (06:02→21:35)
[2018-06-18 06:39] LABS: BASO % 0.3 % (0-2.0); HEMATOCRIT 24.8 % (32.4-45.2); HEMOGLOBIN 8.4 GM/dL (10.7-15.3); LYMPH % 11.9 % (8-40); MCH 27.4 pg (25.7-33.7); MCHC 33.7 g/dl (32.0-36.0); MEAN CELL VOLUME 81.1 fl (80-96); MEAN PLT VOLUME 7.5 fl (7.5-11.1); MONO % 6.3 % (3.8-10.2); NEUT % 81.5 % (42.8-82.8); PLATELET COUNT 312 K/MM3 (134-434); RBC 3.06 M/mm3 (3.60-5.2); RDW 18.4 % (11.6-15.6); WHITE BLOOD COUNT 15.9 K/mm3 (4.0-10.0)
[2018-06-18 06:43] LABS: ALBUMIN 3.1 g/dl (3.4-5.0); ALK PHOS 78 U/L (45-117); ANION GAP 8 MMOL/L (8-16); BILIRUBIN,TOTAL 0.3 mg/dL (0.2-1); BLOOD UREA NITROGEN 14 mg/dL (7-18); CALCIUM 7.8 mg/dL (8.5-10.1); CHLORIDE 121 mmol/L (98-107); CO2 20 mmol/L (21-32); CREATININE 0.7 mg/dL (0.55-1.3); GLUCOSE,RANDOM 115 mg/dL (74-106); PHOSPHOROUS 1.8 mg/dL (2.5-4.9); POTASSIUM 3.3 mmol/L (3.5-5.1); SGOT/AST 17 U/L (15-37); SGPT/ALT 19 U/L (13-61); SODIUM 149 mmol/L (136-145); TOT PROT 5.9 g/dl (6.4-8.2)
--- NOTE | 2018-06-18 07:59 | PN ---
Physical Exam: SUBJECTIVE: Patient seen and examined. Endorses continued chronic pain. Denies nausea. Endorses urinary frequency OBJECTIVE: Vital Signs Period Temp Pulse Resp BP Sys/Rapp Pulse Ox Last 24 Hr 98.4 F-99.9 F 80-109 20-24 110-133/55-75 GENERAL: Awake, alert, and fully oriented HEAD: No signs of trauma, normocephalic, atraumatic EYES: PERRLA, EOMI, sclera anicteric, conjunctiva clear ENT: Hearing grossly normal, nares patent, oropharynx clear without exudates. Moist mucosa LUNGS: No distress, speaks full sentences, clear to auscultation bilaterally HEART: Regular rate and rhythm, normal S1 and S2, no murmurs appreciated, peripheral pulses normal and equal bilaterally ABDOMEN: Soft, generalized mild TTP w/o rebound or guarding, normoactive bowel sounds EXTREMITIES : Normal range of motion, no edema. No clubbing or cyanosis NEUROLOGICAL: Cranial nerves II through XII grossly intact. Mild slurred speech (non-acute), no facial droop or focal weakness/deficit Active Medications Generic Name Dose Route Start Last Admin Trade Name Freq PRN Reason Stop Dose Admin Chlorhexidine Gluconate 1 applic 06/17/18 22:00 06/17/18 21:10 Hibiclens For Decolonization - TP 1 applic HS [facility] Administration Heparin Sodium (Porcine) 5,000 unit 06/17/18 14:00 06/18/18 05:59 Heparin - SQ 5,000 unit TID [facility] Administration Dextrose/Sodium Chloride 40 meq in 1,000 mls @ 75 mls/hr 06/17/18 19:10 06/17 23:35 D5-1/2ns+40 Meq Kcl - IV 75 mls/hr ASDIR [facility] Administration Insulin Aspart 1 vial 06/17/18 22:00 06/18/18 06:02 Novolog Vial Sliding Scale - SQ Not Given ACHS REPLACED BY [facility] Protocol Lorazepam 1 mg 06/17/18 06:46 06/17/18 07:45 Ativan Injection - IVPUSH 1 mg Q6H PRN Administration ANXIETY Metoclopramide HCl 10 mg 06/17/18 14:36 06/17/18 19:01 Reglan Injection - IVPUSH 10 mg Q6H PRN Administration NAUSEA AND/OR VOMITING Mupirocin 1 applic 06/17/18 10:00 06/17/18 23:34 Bactroban Ointment (For Decolonization) - NS 06/22/18 09:59 1 applic BID [facility] Administration Pantoprazole Sodium 40 mg 06/17/18 10:00 06/17/18 21:11 Protonix Iv IVPUSH 40 mg BID [facility] Administration Potassium Chloride 40 meq 06/18/18 08:00 K-Dur - PO 06/18/18 12:01 Q4H REPLACED BY [facility] ASSESSMENT/PLAN: The patient is a 48F w/ a history of poorly controlled IDDM and esophageal stricture s/p dilation who presented for AMS and was found to be in DKA. Neuro Anxiety -Lorazepam Head CT w/ evidence of chronic R MCA infarct but no acute pathology GI N/V -Reglan Possible GI bleed -IV Protonix given -GI consulted: --Recommend continuing Protonix BID --Recommend limited Reglan use (3-4 doses) --Will need f/u w/ her GI, Dr. Jj Ortiz, for continued treatment of likely peptic stricture Levemir 25 units daily BGM Q 4hr, May change to ACHS and 3 Am if she tolerates lunch also. Novolog SS coverage D5 1/2NS dose to be adjusted to maintian blood sugar 120 to 200 Nutrition -DM liquid diet --Plan to advance to chopped DM diet if tolerated well Hypokalemia, 3.3 -Repleted HEME Anemia, 8.4 from 9.4 -Will CTM, no need for transfusion at this time ID Abx per ID ENDO IDDMDKA -DKA Resolved -AG 8 -Per Endo: --pt on D5 1/2 NS, goal BG 120-200 --On Levamir 25u daily and Novolog ISS --Levemir 25 units daily --BGM Q 4hr, May change to ACHS and 3 Am if she tolerates lunch also. MSK Old clavicular injury, PT consulted per primary LUZMARIA Boss'ed 06/18/2018 Dispo: Patient no longer requires ICU level of care. Plan for transfer to floor today. 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 Jj Ortiz for continued treatment of what appears to be a peptic stricture. Visit type - Emergency Visit Emergency Visit: Yes ED Registration Date: 06/17/18 Care time: The patient presented to the Emergency Department on the above date and was hospitalized for further evaluation of their emergent condition. - New Patient This patient is new to me today: Yes Date on this admission: 06/18/18 - Critical Care Critical Care patient: Yes Total Critical Care Time (in minutes): 35 Critical Care Statement: The care of this patient involved high complexity decision making to prevent further life threatening deterioration of the patient 's condition and/or to evaluate & treat vital organ system(s) failure or risk of failure.
[2018-06-18] MEDS ORDERED: POTASSIUM CHLORIDE TABS 20 MEQ TABLET.ER (FP) PO SCH (08:00)
[2018-06-18] MEDS ORDERED: SODIUM PHOSPHATE - 30 MM in SODIUM CHLORIDE 250 ML IVPB ONE (08:10)
--- NOTE | 2018-06-18 08:13 | PN ---
Teaching Attending Note Name of Resident: Audi Lacey ATTENDING PHYSICIAN STATEMENT I saw and evaluated the patient. I reviewed the resident's note and discussed the case with the resident. I agree with the resident's findings and plan as documented with exceptions below. SUBJECTIVE: Patient seen and examined. reports not wanting to eat and afraid to vomit. No abdominal pain or urinary symptoms. Reports left clavicular fx 2 months ago and asking for orthopedic input. OBJECTIVE: Vital Signs Period Temp Pulse Resp BP Sys/Rapp Pulse Ox Last 24 Hr 98.8 F-99.9 F 80-107 20-24 110-133/55-75 Intake & Output 06/15/18 06/16/18 06/17/18 06/18/18 23:59 23:59 23:59 23:59 Intake Total 7180 900 Output Total 5500 1000 Balance 1680 -100 Weight 130 lb 135 lb 9.6 oz 135 lb 8 oz General: sitting in bed in no acute distress Chest: CTAb, no rales or wheezing Abdomen: soft, NT, ND Extremities: no edema, no clavicular swelling/erythema/crepitus Active Medications Chlorhexidine Gluconate (Hibiclens For Decolonization -) 1 applic TP HS [facility] Last Admin: 06/17/18 21:10 Dose: 1 applic Heparin Sodium (Porcine) (Heparin -) 5,000 unit SQ TID [facility] Last Admin: 06/18/18 05:59 Dose: 5,000 unit Dextrose/Sodium Chloride (D5-1/2ns+40 Meq Kcl -) 40 meq in 1,000 mls @ 75 mls/ hr IV ASDIR [facility] Last Admin: 06/17/18 23:35 Dose: 75 mls/hr Potassium Phosphate 30 mm/ (Sodium Chloride) 260 mls @ 62.5 mls/hr IVPB ONCE ONE Stop: 06/18/18 12:19 Insulin Aspart (Novolog Vial Sliding Scale -) 1 vial SQ ACHS [facility]; Protocol Last Admin: 06/18/18 06:02 Dose: Not Given Lorazepam (Ativan Injection -) 1 mg IVPUSH Q6H PRN PRN Reason: ANXIETY Last Admin: 06/17/18 07:45 Dose: 1 mg Metoclopramide HCl (Reglan Injection -) 10 mg IVPUSH Q6H PRN PRN Reason: NAUSEA AND/OR VOMITING Last Admin: 06/17/18 19:01 Dose: 10 mg Mupirocin (Bactroban Ointment (For Decolonization) -) 1 applic NS BID [facility] Stop: 06/22/18 09:59 Last Admin: 06/17/18 23:34 Dose: 1 applic Pantoprazole Sodium (Protonix Iv) 40 mg IVPUSH BID [facility] Last Admin: 06/17/18 21:11 Dose: 40 mg Laboratory Results - last 24 hr 06/17/18 06/17/18 06/17/18 04:01 05:35 06:25 WBC RBC Hgb Hct MCV MCH MCHC RDW Plt Count MPV Absolute Neuts (auto) Neutrophils % Neutrophils % (Manual) Band Neutrophils % Lymphocytes % Lymphocytes % (Manual) Monocytes % Monocytes % (Manual) Eosinophils % Eosinophils % (Manual) Basophils % Basophils % (Manual) Myelocytes % (Man) Promyelocytes % (Man) Blast Cells % (Manual) Nucleated RBC % Metamyelocytes Hypochromia Platelet Estimate Polychromasia Poikilocytosis Anisocytosis Microcytosis Macrocytosis Ovalocytes Retic Count Puncture Site ABG pH ABG pCO2 at Pt Temp Oxygen Flow Rate Sodium Potassium Chloride Carbon Dioxide Anion Gap BUN Creatinine Creat Clearance w eGFR POC Glucometer > 400 > 400 > 400 Random Glucose Hemoglobin A1c % Lactic Acid Calcium Phosphorus Magnesium Iron TIBC Iron Saturation Total Bilirubin AST ALT Alkaline Phosphatase Total Protein Albumin 06/17/18 06/17/18 06/17/18 07:44 07:44 07:44 WBC RBC Hgb Hct MCV MCH MCHC RDW Plt Count MPV Absolute Neuts (auto) Neutrophils % Neutrophils % (Manual) 77.2 Band Neutrophils % 3.0 Lymphocytes % Lymphocytes % (Manual) 12.9 Monocytes % Monocytes % (Manual) 6 D Eosinophils % Eosinophils % (Manual) 0.0 Basophils % Basophils % (Manual) 0.0 Myelocytes % (Man) 0 Promyelocytes % (Man) 0 Blast Cells % (Manual) 0 Nucleated RBC % Metamyelocytes 1 Hypochromia 0 Platelet Estimate Normal Polychromasia 0 Poikilocytosis 2+ Anisocytosis 1+ Microcytosis 1+ Macrocytosis 1+ Ovalocytes 1+ Retic Count 1.66 H Puncture Site ABG pH ABG pCO2 at Pt Temp Oxygen Flow Rate Sodium Potassium Chloride Carbon Dioxide Anion Gap BUN Creatinine Creat Clearance w eGFR POC Glucometer Random Glucose Hemoglobin A1c % Lactic Acid Calcium Phosphorus Magnesium Iron 12 L TIBC 448 Iron Saturation 3 L Total Bilirubin AST ALT Alkaline Phosphatase Total Protein Albumin 06/17/18 06/17/18 06/17/18 07:44 07:44 07:44 WBC RBC Hgb Hct MCV MCH MCHC RDW Plt Count MPV Absolute Neuts (auto) Neutrophils % Neutrophils % (Manual) Band Neutrophils % Lymphocytes % Lymphocytes % (Manual) Monocytes % Monocytes % (Manual) Eosinophils % Eosinophils % (Manual) Basophils % Basophils % (Manual) Myelocytes % (Man) Promyelocytes % (Man) Blast Cells % (Manual) Nucleated RBC % Metamyelocytes Hypochromia Platelet Estimate Polychromasia Poikilocytosis Anisocytosis Microcytosis Macrocytosis Ovalocytes Retic Count Puncture Site ABG pH ABG pCO2 at Pt Temp Oxygen Flow Rate Sodium 144 Potassium 3.7 Chloride 118 H Carbon Dioxide 7 L Anion Gap 20 H BUN 46 H Creatinine 1.7 H Creat Clearance w eGFR 31.94 POC Glucometer Random Glucose 546 H* Hemoglobin A1c % 10.4 H Lactic Acid 3.5 H* Calcium 8.5 Phosphorus 1.4 L Magnesium 2.5 H Iron TIBC Iron Saturation Total Bilirubin 0.3 AST 11 L ALT 19 Alkaline Phosphatase 98 Total Protein 6.7 Albumin 3.3 L 06/17/18 06/17/18 06/17/18 07:52 08:22 09:55 WBC RBC Hgb Hct MCV MCH MCHC RDW Plt Count MPV Absolute Neuts (auto) Neutrophils % Neutrophils % (Manual) Band Neutrophils % Lymphocytes % Lymphocytes % (Manual) Monocytes % Monocytes % (Manual) Eosinophils % Eosinophils % (Manual) Basophils % Basophils % (Manual) Myelocytes % (Man) Promyelocytes % (Man) Blast Cells % (Manual) Nucleated RBC % Metamyelocytes Hypochromia Platelet Estimate Polychromasia Poikilocytosis Anisocytosis Microcytosis Macrocytosis Ovalocytes Retic Count Puncture Site Right brachial ABG pH 7.20 L* ABG pCO2 at Pt Temp 16.7 L* Oxygen Flow Rate Yes Sodium Potassium Chloride Carbon Dioxide Anion Gap BUN Creatinine Creat Clearance w eGFR POC Glucometer > [phone] Random Glucose Hemoglobin A1c % Lactic Acid Calcium Phosphorus Magnesium Iron TIBC Iron Saturation Total Bilirubin AST ALT Alkaline Phosphatase Total Protein Albumin 06/17/18 06/17/18 06/17/18 11:00 11:47 12:00 WBC RBC Hgb Hct MCV MCH MCHC RDW Plt Count MPV Absolute Neuts (auto) Neutrophils % Neutrophils % (Manual) Band Neutrophils % Lymphocytes % Lymphocytes % (Manual) Monocytes % Monocytes % (Manual) Eosinophils % Eosinophils % (Manual) Basophils % Basophils % (Manual) Myelocytes % (Man) Promyelocytes % (Man) Blast Cells % (Manual) Nucleated RBC % Metamyelocytes Hypochromia Platelet Estimate Polychromasia Poikilocytosis Anisocytosis Microcytosis Macrocytosis Ovalocytes Retic Count Puncture Site ABG pH ABG pCO2 at Pt Temp Oxygen Flow Rate Sodium 150 H Potassium 4.1 Chloride 124 H Carbon Dioxide 16 L Anion Gap 10 BUN 37 H Creatinine 1.3 Creat Clearance w eGFR 43.54 POC Glucometer 239.07615 222.22578 Random Glucose 232 H Hemoglobin A1c % Lactic Acid Calcium 8.5 Phosphorus 1.6 L Magnesium 2.1 Iron TIBC Iron Saturation Total Bilirubin AST ALT Alkaline Phosphatase Total Protein Albumin 06/17/18 06/17/18 06/17/18 12:00 14:10 16:13 WBC RBC Hgb Hct MCV MCH MCHC RDW Plt Count MPV Absolute Neuts (auto) Neutrophils % Neutrophils % (Manual) Band Neutrophils % Lymphocytes % Lymphocytes % (Manual) Monocytes % Monocytes % (Manual) Eosinophils % Eosinophils % (Manual) Basophils % Basophils % (Manual) Myelocytes % (Man) Promyelocytes % (Man) Blast Cells % (Manual) Nucleated RBC % Metamyelocytes Hypochromia Platelet Estimate Polychromasia Poikilocytosis Anisocytosis Microcytosis Macrocytosis Ovalocytes Retic Count Puncture Site ABG pH ABG pCO2 at Pt Temp Oxygen Flow Rate Sodium Potassium Chloride Carbon Dioxide Anion Gap BUN Creatinine Creat Clearance w eGFR POC Glucometer 255.33856 271.84084 Random Glucose Hemoglobin A1c % Lactic Acid 3.0 H* Calcium Phosphorus Magnesium Iron TIBC Iron Saturation Total Bilirubin AST ALT Alkaline Phosphatase Total Protein Albumin 06/17/18 06/17/18 06/17/18 18:27 20:55 23:45 WBC RBC Hgb Hct MCV MCH MCHC RDW Plt Count MPV Absolute Neuts (auto) Neutrophils % Neutrophils % (Manual) Band Neutrophils % Lymphocytes % Lymphocytes % (Manual) Monocytes % Monocytes % (Manual) Eosinophils % Eosinophils % (Manual) Basophils % Basophils % (Manual) Myelocytes % (Man) Promyelocytes % (Man) Blast Cells % (Manual) Nucleated RBC % Metamyelocytes Hypochromia Platelet Estimate Polychromasia Poikilocytosis Anisocytosis Microcytosis Macrocytosis Ovalocytes Retic Count Puncture Site ABG pH ABG pCO2 at Pt Temp Oxygen Flow Rate Sodium Potassium Chloride Carbon Dioxide Anion Gap BUN Creatinine Creat Clearance w eGFR POC Glucometer 206.00664 103.41021 85.00512 Random Glucose Hemoglobin A1c % Lactic Acid Calcium Phosphorus Magnesium Iron TIBC Iron Saturation Total Bilirubin AST ALT Alkaline Phosphatase Total Protein Albumin 06/18/18 06/18/18 06/18/18 02:01 04:37 05:30 WBC 15.9 H RBC 3.06 L Hgb 8.4 L Hct 24.8 L D MCV 81.1 MCH 27.4 MCHC 33.7 RDW 18.4 H Plt Count 312 D MPV 7.5 Absolute Neuts (auto) 13.0 H Neutrophils % 81.5 Neutrophils % (Manual) Band Neutrophils % Lymphocytes % 11.9 Lymphocytes % (Manual) Monocytes % 6.3 Monocytes % (Manual) Eosinophils % 0.0 D Eosinophils % (Manual) Basophils % 0.3 Basophils % (Manual) Myelocytes % (Man) Promyelocytes % (Man) Blast Cells % (Manual) Nucleated RBC % 0 Metamyelocytes Hypochromia Platelet Estimate Polychromasia Poikilocytosis Anisocytosis Microcytosis Macrocytosis Ovalocytes Retic Count Puncture Site ABG pH ABG pCO2 at Pt Temp Oxygen Flow Rate Sodium Potassium Chloride Carbon Dioxide Anion Gap BUN Creatinine Creat Clearance w eGFR POC Glucometer 109.87861 123.69939 Random Glucose Hemoglobin A1c % Lactic Acid Calcium Phosphorus Magnesium Iron TIBC Iron Saturation Total Bilirubin AST ALT Alkaline Phosphatase Total Protein Albumin 06/18/18 06/18/18 05:30 05:42 WBC RBC Hgb Hct MCV MCH MCHC RDW Plt Count MPV Absolute Neuts (auto) Neutrophils % Neutrophils % (Manual) Band Neutrophils % Lymphocytes % Lymphocytes % (Manual) Monocytes % Monocytes % (Manual) Eosinophils % Eosinophils % (Manual) Basophils % Basophils % (Manual) Myelocytes % (Man) Promyelocytes % (Man) Blast Cells % (Manual) Nucleated RBC % Metamyelocytes Hypochromia Platelet Estimate Polychromasia Poikilocytosis Anisocytosis Microcytosis Macrocytosis Ovalocytes Retic Count Puncture Site ABG pH ABG pCO2 at Pt Temp Oxygen Flow Rate Sodium 149 H Potassium 3.3 L Chloride 121 H Carbon Dioxide 20 L Anion Gap 8 BUN 14 Creatinine 0.7 Creat Clearance w eGFR > 60 POC Glucometer 140.66646 Random Glucose 115 H Hemoglobin A1c % Lactic Acid Calcium 7.8 L Phosphorus 1.8 L Magnesium 2.0 Iron TIBC Iron Saturation Total Bilirubin 0.3 AST 17 ALT 19 Alkaline Phosphatase 78 Total Protein 5.9 L Albumin 3.1 L Microbiology 06/16/18 23:59 Blood - Peripheral Venous Blood Culture - Preliminary NO GROWTH OBTAINED AFTER 24 HOURS, INCUBATION TO CONTINUE FOR 4 DAYS. 06/16/18 23:30 Blood - Peripheral Venous Blood Culture - Preliminary NO GROWTH OBTAINED AFTER 24 HOURS, INCUBATION TO CONTINUE FOR 4 DAYS. ASSESSMENT AND PLAN: 48 yof with PMhx of HTN, CVA (left sided hemiparesis), HLD, IDDM, DKA, Dysphagia , Gastroparesis, esophageal stricture (EGD 02/14), recurrent admission with DKA, non compliance admitted with severe DKA -Severe DKA, from medication non compliance -Severe hypophosphatemia -GIANCARLO, from hypovolumia, osmotic diuresis -Severe hyperglycemia -Leucocytosis, suspect from stress/dehydration/DKA, no focal s/s concerning for infection currently -hyperkalemia, from severe hyperglycemia -Dehydration -Nausea, vomitting, ?From DKA vs gastroparesis -?hematemesis -HTN -HLD -IDDM -Dysphagia -Diabetic gastroparesis -Esophageal stricture (EGD 02/14) -Right MCA CVA with left hemiparesis Plan AG closed. off insulin drip. Levemir 25 units given 06/17. Endocrine input noted. D5-1/2NS with K for BG 120-200. One tolerating PO and blood sugars rise, stop IVF and transition to levemir. IV KPhos. Zofran changed to Reglan standing TIDAC short term. Known h/o gastroparesis/Eso stricture s/p dilation. GI input noted. Monitor H/h. PPI IV BID> Monitor for focal s/s concerning for infection. Avoid sedatives. Monitor renal function, avoid nephrotoxins, renal dosing of meds. DVTPPX, heparin with caution Old clavicular injury, PT eval. Critically ill with multiple organ system involvement. Plan coordinated with nursing, GI and ICU team. Total critical care time spent 40 min.
--- NOTE | 2018-06-18 08:13 | PN ---
Physical Exam: SUBJECTIVE: Patient seen and examined this AM. She states she is in severe lower back pain and is requesting pain medication. She states that she is otherwise feeling much better than yesterday. OBJECTIVE: Vital Signs Period Temp Pulse Resp BP Sys/Rapp Pulse Ox Last 24 Hr 98.8 F-99.9 F 80-107 20-24 110-133/55-75 GENERAL: A&O, agitation improved HEAD: Normocephalic, atraumatic. EYES: PERRL, no scleral icterus EARS, NOSE, THROAT: oropharynx clear without exudates. NECK: supple without lymphadenopathy LUNGS: Tachypnic, but otherwise CTA b/l, no crackles or wheezes HEART: Regular rate and rhythm, normal S1 and S2 without murmur ABDOMEN: Soft, nontender to palpation, normoactive bowel sounds MUSCULOSKELETAL: No bony deformities or tenderness. EXTREMITIES: 2+ pulses, warm, well-perfused. No peripheral edema. NEUROLOGICAL: Cranial nerves II-XII grossly intact. Normal speech. Laboratory Results - last 24 hr 06/17/18 06/17/18 06/17/18 04:01 05:35 06:25 WBC RBC Hgb Hct MCV MCH MCHC RDW Plt Count MPV Absolute Neuts (auto) Neutrophils % Neutrophils % (Manual) Band Neutrophils % Lymphocytes % Lymphocytes % (Manual) Monocytes % Monocytes % (Manual) Eosinophils % Eosinophils % (Manual) Basophils % Basophils % (Manual) Myelocytes % (Man) Promyelocytes % (Man) Blast Cells % (Manual) Nucleated RBC % Metamyelocytes Hypochromia Platelet Estimate Polychromasia Poikilocytosis Anisocytosis Microcytosis Macrocytosis Ovalocytes Retic Count Puncture Site ABG pH ABG pCO2 at Pt Temp Oxygen Flow Rate Sodium Potassium Chloride Carbon Dioxide Anion Gap BUN Creatinine Creat Clearance w eGFR POC Glucometer > 400 > 400 > 400 Random Glucose Hemoglobin A1c % Lactic Acid Calcium Phosphorus Magnesium Iron TIBC Iron Saturation Total Bilirubin AST ALT Alkaline Phosphatase Total Protein Albumin 06/17/18 06/17/18 06/17/18 07:44 07:44 07:44 WBC RBC Hgb Hct MCV MCH MCHC RDW Plt Count MPV Absolute Neuts (auto) Neutrophils % Neutrophils % (Manual) 77.2 Band Neutrophils % 3.0 Lymphocytes % Lymphocytes % (Manual) 12.9 Monocytes % Monocytes % (Manual) 6 D Eosinophils % Eosinophils % (Manual) 0.0 Basophils % Basophils % (Manual) 0.0 Myelocytes % (Man) 0 Promyelocytes % (Man) 0 Blast Cells % (Manual) 0 Nucleated RBC % Metamyelocytes 1 Hypochromia 0 Platelet Estimate Normal Polychromasia 0 Poikilocytosis 2+ Anisocytosis 1+ Microcytosis 1+ Macrocytosis 1+ Ovalocytes 1+ Retic Count 1.66 H Puncture Site ABG pH ABG pCO2 at Pt Temp Oxygen Flow Rate Sodium Potassium Chloride Carbon Dioxide Anion Gap BUN Creatinine Creat Clearance w eGFR POC Glucometer Random Glucose Hemoglobin A1c % Lactic Acid Calcium Phosphorus Magnesium Iron 12 L TIBC 448 Iron Saturation 3 L Total Bilirubin AST ALT Alkaline Phosphatase Total Protein Albumin 06/17/18 06/17/18 06/17/18 07:44 07:44 07:44 WBC RBC Hgb Hct MCV MCH MCHC RDW Plt Count MPV Absolute Neuts (auto) Neutrophils % Neutrophils % (Manual) Band Neutrophils % Lymphocytes % Lymphocytes % (Manual) Monocytes % Monocytes % (Manual) Eosinophils % Eosinophils % (Manual) Basophils % Basophils % (Manual) Myelocytes % (Man) Promyelocytes % (Man) Blast Cells % (Manual) Nucleated RBC % Metamyelocytes Hypochromia Platelet Estimate Polychromasia Poikilocytosis Anisocytosis Microcytosis Macrocytosis Ovalocytes Retic Count Puncture Site ABG pH ABG pCO2 at Pt Temp Oxygen Flow Rate Sodium 144 Potassium 3.7 Chloride 118 H Carbon Dioxide 7 L Anion Gap 20 H BUN 46 H Creatinine 1.7 H Creat Clearance w eGFR 31.94 POC Glucometer Random Glucose 546 H* Hemoglobin A1c % 10.4 H Lactic Acid 3.5 H* Calcium 8.5 Phosphorus 1.4 L Magnesium 2.5 H Iron TIBC Iron Saturation Total Bilirubin 0.3 AST 11 L ALT 19 Alkaline Phosphatase 98 Total Protein 6.7 Albumin 3.3 L 06/17/18 06/17/18 06/17/18 07:52 08:22 09:55 WBC RBC Hgb Hct MCV MCH MCHC RDW Plt Count MPV Absolute Neuts (auto) Neutrophils % Neutrophils % (Manual) Band Neutrophils % Lymphocytes % Lymphocytes % (Manual) Monocytes % Monocytes % (Manual) Eosinophils % Eosinophils % (Manual) Basophils % Basophils % (Manual) Myelocytes % (Man) Promyelocytes % (Man) Blast Cells % (Manual) Nucleated RBC % Metamyelocytes Hypochromia Platelet Estimate Polychromasia Poikilocytosis Anisocytosis Microcytosis Macrocytosis Ovalocytes Retic Count Puncture Site Right brachial ABG pH 7.20 L* ABG pCO2 at Pt Temp 16.7 L* Oxygen Flow Rate Yes Sodium Potassium Chloride Carbon Dioxide Anion Gap BUN Creatinine Creat Clearance w eGFR POC Glucometer > [phone] Random Glucose Hemoglobin A1c % Lactic Acid Calcium Phosphorus Magnesium Iron TIBC Iron Saturation Total Bilirubin AST ALT Alkaline Phosphatase Total Protein Albumin 06/17/18 06/17/18 06/17/18 11:00 11:47 12:00 WBC RBC Hgb Hct MCV MCH MCHC RDW Plt Count MPV Absolute Neuts (auto) Neutrophils % Neutrophils % (Manual) Band Neutrophils % Lymphocytes % Lymphocytes % (Manual) Monocytes % Monocytes % (Manual) Eosinophils % Eosinophils % (Manual) Basophils % Basophils % (Manual) Myelocytes % (Man) Promyelocytes % (Man) Blast Cells % (Manual) Nucleated RBC % Metamyelocytes Hypochromia Platelet Estimate Polychromasia Poikilocytosis Anisocytosis Microcytosis Macrocytosis Ovalocytes Retic Count Puncture Site ABG pH ABG pCO2 at Pt Temp Oxygen Flow Rate Sodium 150 H Potassium 4.1 Chloride 124 H Carbon Dioxide 16 L Anion Gap 10 BUN 37 H Creatinine 1.3 Creat Clearance w eGFR 43.54 POC Glucometer 239.71167 222.44345 Random Glucose 232 H Hemoglobin A1c % Lactic Acid Calcium 8.5 Phosphorus 1.6 L Magnesium 2.1 Iron TIBC Iron Saturation Total Bilirubin AST ALT Alkaline Phosphatase Total Protein Albumin 06/17/18 06/17/18 06/17/18 12:00 14:10 16:13 WBC RBC Hgb Hct MCV MCH MCHC RDW Plt Count MPV Absolute Neuts (auto) Neutrophils % Neutrophils % (Manual) Band Neutrophils % Lymphocytes % Lymphocytes % (Manual) Monocytes % Monocytes % (Manual) Eosinophils % Eosinophils % (Manual) Basophils % Basophils % (Manual) Myelocytes % (Man) Promyelocytes % (Man) Blast Cells % (Manual) Nucleated RBC % Metamyelocytes Hypochromia Platelet Estimate Polychromasia Poikilocytosis Anisocytosis Microcytosis Macrocytosis Ovalocytes Retic Count Puncture Site ABG pH ABG pCO2 at Pt Temp Oxygen Flow Rate Sodium Potassium Chloride Carbon Dioxide Anion Gap BUN Creatinine Creat Clearance w eGFR POC Glucometer 255.48667 271.58001 Random Glucose Hemoglobin A1c % Lactic Acid 3.0 H* Calcium Phosphorus Magnesium Iron TIBC Iron Saturation Total Bilirubin AST ALT Alkaline Phosphatase Total Protein Albumin 06/17/18 06/17/18 06/17/18 18:27 20:55 23:45 WBC RBC Hgb Hct MCV MCH MCHC RDW Plt Count MPV Absolute Neuts (auto) Neutrophils % Neutrophils % (Manual) Band Neutrophils % Lymphocytes % Lymphocytes % (Manual) Monocytes % Monocytes % (Manual) Eosinophils % Eosinophils % (Manual) Basophils % Basophils % (Manual) Myelocytes % (Man) Promyelocytes % (Man) Blast Cells % (Manual) Nucleated RBC % Metamyelocytes Hypochromia Platelet Estimate Polychromasia Poikilocytosis Anisocytosis Microcytosis Macrocytosis Ovalocytes Retic Count Puncture Site ABG pH ABG pCO2 at Pt Temp Oxygen Flow Rate Sodium Potassium Chloride Carbon Dioxide Anion Gap BUN Creatinine Creat Clearance w eGFR POC Glucometer 206.75851 103.63344 85.28891 Random Glucose Hemoglobin A1c % Lactic Acid Calcium Phosphorus Magnesium Iron TIBC Iron Saturation Total Bilirubin AST ALT Alkaline Phosphatase Total Protein Albumin 06/18/18 06/18/18 06/18/18 02:01 04:37 05:30 WBC 15.9 H RBC 3.06 L Hgb 8.4 L Hct 24.8 L D MCV 81.1 MCH 27.4 MCHC 33.7 RDW 18.4 H Plt Count 312 D MPV 7.5 Absolute Neuts (auto) 13.0 H Neutrophils % 81.5 Neutrophils % (Manual) Band Neutrophils % Lymphocytes % 11.9 Lymphocytes % (Manual) Monocytes % 6.3 Monocytes % (Manual) Eosinophils % 0.0 D Eosinophils % (Manual) Basophils % 0.3 Basophils % (Manual) Myelocytes % (Man) Promyelocytes % (Man) Blast Cells % (Manual) Nucleated RBC % 0 Metamyelocytes Hypochromia Platelet Estimate Polychromasia Poikilocytosis Anisocytosis Microcytosis Macrocytosis Ovalocytes Retic Count Puncture Site ABG pH ABG pCO2 at Pt Temp Oxygen Flow Rate Sodium Potassium Chloride Carbon Dioxide Anion Gap BUN Creatinine Creat Clearance w eGFR POC Glucometer 109.63321 123.41308 Random Glucose Hemoglobin A1c % Lactic Acid Calcium Phosphorus Magnesium Iron TIBC Iron Saturation Total Bilirubin AST ALT Alkaline Phosphatase Total Protein Albumin 06/18/18 06/18/18 05:30 05:42 WBC RBC Hgb Hct MCV MCH MCHC RDW Plt Count MPV Absolute Neuts (auto) Neutrophils % Neutrophils % (Manual) Band Neutrophils % Lymphocytes % Lymphocytes % (Manual) Monocytes % Monocytes % (Manual) Eosinophils % Eosinophils % (Manual) Basophils % Basophils % (Manual) Myelocytes % (Man) Promyelocytes % (Man) Blast Cells % (Manual) Nucleated RBC % Metamyelocytes Hypochromia Platelet Estimate Polychromasia Poikilocytosis Anisocytosis Microcytosis Macrocytosis Ovalocytes Retic Count Puncture Site ABG pH ABG pCO2 at Pt Temp Oxygen Flow Rate Sodium 149 H Potassium 3.3 L Chloride 121 H Carbon Dioxide 20 L Anion Gap 8 BUN 14 Creatinine 0.7 Creat Clearance w eGFR > 60 POC Glucometer 140.35329 Random Glucose 115 H Hemoglobin A1c % Lactic Acid Calcium 7.8 L Phosphorus 1.8 L Magnesium 2.0 Iron TIBC Iron Saturation Total Bilirubin 0.3 AST 17 ALT 19 Alkaline Phosphatase 78 Total Protein 5.9 L Albumin 3.1 L Active Medications Generic Name Dose Route Start Last Admin Trade Name Freq PRN Reason Stop Dose Admin Chlorhexidine Gluconate 1 applic 06/17/18 22:00 06/17/18 21:10 Hibiclens For Decolonization - TP 1 applic HS [facility] Administration Heparin Sodium (Porcine) 5,000 unit 06/17/18 14:00 06/18/18 05:59 Heparin - SQ 5,000 unit TID [facility] Administration Dextrose/Sodium Chloride 40 meq in 1,000 mls @ 75 mls/hr 06/17/18 19:10 06/17 23:35 D5-1/2ns+40 Meq Kcl - IV 75 mls/hr ASDIR [facility] Administration Potassium Phosphate 30 mm/ 260 mls @ 62.5 mls/hr 06/18/18 08:10 Sodium Chloride IVPB 06/18/18 12:19 ONCE ONE Insulin Aspart 1 vial 06/17/18 22:00 06/18/18 06:02 Novolog Vial Sliding Scale - SQ Not Given ACHS [facility] Protocol Lorazepam 1 mg 06/17/18 06:46 06/17/18 07:45 Ativan Injection - IVPUSH 1 mg Q6H PRN Administration ANXIETY Metoclopramide HCl 10 mg 06/17/18 14:36 06/17/18 19:01 Reglan Injection - IVPUSH 10 mg Q6H PRN Administration NAUSEA AND/OR VOMITING Mupirocin 1 applic 06/17/18 10:00 06/17/18 23:34 Bactroban Ointment (For Decolonization) - NS 06/22/18 09:59 1 applic BID [facility] Administration Pantoprazole Sodium 40 mg 06/17/18 10:00 06/17/18 21:11 Protonix Iv IVPUSH 40 mg BID [facility] Administration ASSESSMENT/PLAN: 48 yo F PMH HTN, CVA (left sided hemiparesis), HLD, IDDM, DKA, Dysphagia, Gastroparesis, esophageal stricture (EGD 02/14), who presents w/ AMS, n/v, elevated blood sugars, and back pain s/p fall. Found to be in DKA Severe DKA -Insulin Drip Completed, Gap closed -Levemir 20 units today, will monitor glucose overnight -D5 1/2 NS + 40 mEq of K+ @ 75 cc/hr, hold D5 vs titrate if bgms continue to be elevated -A1C 10.4 -Trend BMP Leukocytosis -Likely secondary to acute DKA process, improving -Will trend CBC -No infectious source able to be identified at this time -UA with no signs of UTI -CXR with no acute pathology -Abdomen not acutely/focally tender Coffee Ground Emesis with Anemia -H/H stable, will continue to trend -GI Consulted -Protonix 40 mg IV BID -Reglan 10 mg ACHS [facility] for n/v for one or two days -Defer EGD in absence of acute bleed S/P Fall, Back pain -Imaging negative in ED GIANCARLO -Likely prerenal secondary to hypoperfusion with severe dehydration -Trend BMP for resolution with fluid resuscitation HLD -Lipitor in the past but pt not currently taking Past CVA with residual L sided weakness -Currently stable -No signs of acute CVA DVT Prophylaxis -Heparin 5000 units SQ TID FEN -Fluids: D5 1/2NS + 40 mEq K+ @ 75 cc/hr -Electrolytes: Monitor Abnormalities and replete as needed, Trend BMP -Nutrition: Chopped diabetic diet with Glucerna Disposition Transfer to Med/Surg Visit type - Emergency Visit Emergency Visit: Yes ED Registration Date: 06/17/18 Care time: The patient presented to the Emergency Department on the above date and was hospitalized for further evaluation of their emergent condition. - New Patient This patient is new to me today: No - Critical Care Critical Care patient: Yes Total Critical Care Time (in minutes): 35 Critical Care Statement: The care of this patient involved high complexity decision making to prevent further life threatening deterioration of the patient 's condition and/or to evaluate & treat vital organ system(s) failure or risk of failure.
[2018-06-18] MEDS ORDERED: POTASSIUM PHOSPHATE 30 MM in SODIUM CHLORIDE 250 ML IVPB ONE (08:45)
--- NOTE | 2018-06-18 09:26 | PN ---
Progress Note (short form) - Note Progress Note: Feels better Tolerating food Vital Signs Period Temp Pulse Resp BP Sys/Rapp Pulse Ox Last 24 Hr 98.8 F-99.9 F 80-107 20-24 110-133/55-75 PE:Aox3 Neck: supple, No JVD HEENT: EOMI Lungs: CTA CVS: S1S2 Abd: Benign Ext: NO edema Neuor: No focal deficit CMP Sodium 149 mmol/L (136-145) H 06/18/18 05:30 Potassium 3.3 mmol/L (3.5-5.1) L 06/18/18 05:30 Chloride 121 mmol/L (98-107) H 06/18/18 05:30 Carbon Dioxide 20 mmol/L (21-32) L 06/18/18 05:30 Anion Gap 8 MMOL/L (8-16) 06/18/18 05:30 BUN 14 mg/dL (7-18) 06/18/18 05:30 Creatinine 0.7 mg/dL (0.55-1.3) 06/18/18 05:30 Creat Clearance w eGFR > 60 (>60) 06/18/18 05:30 POC Glucometer 140.64075 UNITS (80-120) 06/18/18 05:42 Random Glucose 115 mg/dL (74-106) H 06/18/18 05:30 Hemoglobin A1c % 10.4 % (4.2-6.3) H 06/17/18 07:44 Lactic Acid 3.0 mmol/L (0.4-2.0) H* 06/17/18 12:00 Calcium 7.8 mg/dL (8.5-10.1) L 06/18/18 05:30 Phosphorus 1.8 mg/dL (2.5-4.9) L 06/18/18 05:30 Magnesium 2.0 mg/dL (1.8-2.4) 06/18/18 05:30 Iron 12 ug/dL (27-159) L 06/17/18 07:44 TIBC 448 ug/dL (250-450) 06/17/18 07:44 Iron Saturation 3 % (15-55) L 06/17/18 07:44 Total Bilirubin 0.3 mg/dL (0.2-1) 06/18/18 05:30 AST 17 U/L (15-37) 06/18/18 05:30 ALT 19 U/L (13-61) 06/18/18 05:30 Alkaline Phosphatase 78 U/L (45-117) 06/18/18 05:30 Creatine Kinase 37 IU/L (26-192) 06/16/18 23:59 Troponin I < 0.02 ng/ml (0.00-0.05) 06/16/18 23:59 Total Protein 5.9 g/dl (6.4-8.2) L 06/18/18 05:30 Albumin 3.1 g/dl (3.4-5.0) L 06/18/18 05:30 Serum , Qual Negative 06/16/18 23:59 Current Medications Generic Name Dose Route Start Last Admin Trade Name Freq PRN Reason Stop Dose Admin Chlorhexidine Gluconate 1 applic 06/17/18 22:00 06/17/18 21:10 Hibiclens For Decolonization - TP 1 applic HS [facility] Administration Heparin Sodium (Porcine) 5,000 unit 06/17/18 14:00 06/18/18 05:59 Heparin - SQ 5,000 unit TID [facility] Administration Dextrose/Sodium Chloride 40 meq in 1,000 mls @ 75 mls/hr 06/17/18 19:10 06/17 23:35 D5-1/2ns+40 Meq Kcl - IV 75 mls/hr ASDIR [facility] Administration Potassium Phosphate 30 mm/ 260 mls @ 62.5 mls/hr 06/18/18 08:45 Sodium Chloride IVPB 06/18/18 12:54 ONCE ONE Insulin Aspart 1 vial 06/17/18 22:00 06/18/18 06:02 Novolog Vial Sliding Scale - SQ Not Given [facility] Protocol Lorazepam 1 mg 06/17/18 06:46 06/17/18 07:45 Ativan Injection - IVPUSH 1 mg Q6H PRN Administration ANXIETY Metoclopramide HCl 10 mg 06/17/18 14:36 06/17/18 19:01 Reglan Injection - IVPUSH 10 mg Q6H PRN Administration NAUSEA AND/OR VOMITING Mupirocin 1 applic 06/17/18 10:00 06/17/18 23:34 Bactroban Ointment (For Decolonization) - NS 06/22/18 09:59 1 applic BID [facility] Administration Pantoprazole Sodium 40 mg 06/17/18 10:00 06/17/18 21:11 Protonix Iv IVPUSH 40 mg BID [facility] Administration AP: T1DM DKA Gastroparesis Levemir 20 units today BGM Q 4hr, May change to ACHS and 3 Am if she tolerates lunch also. Novolog SS coverage D5 1/2NS dose to be adjusted to maintian blood sugar 120 to 200 Electrolyte replacement as necessary Will F/u
[2018-06-18] MEDS: MUPIROCIN 2% TOPICAL OINTMENT FOR DECOLONIZATION NS SCH ×2 (09:33→21:34)
[2018-06-18] MEDS: PANTOPRAZOLE SODIUM 40 MG VIAL IVPUSH SCH (09:33)
[2018-06-18] MEDS: METOCLOPRAMIDE HCL INJECTION 10 MG/2 ML VIAL IVPUSH PRN (09:55)
[2018-06-18] MEDS: METOCLOPRAMIDE HCL INJECTION 10 MG/2 ML VIAL IVPUSH SCH ×2 (10:00→16:41)
--- NOTE | 2018-06-18 10:32 | PN ---
GI Progress Note Subjective: No vomiting today Vomiting last night after attemp at dinner Appears tpo be tolerating liquids States that upper abdomen hurts after retching. Described bilious vomiting [facility] reviewed: had EGD 01/14 with savory dilation over guidewire with Dr. Ortiz to 12mm and again 02/14 with balloon dilation to 15mm - Objective Vital Signs: Vital Signs Temperature 99.4 F 06/18/18 10:00 Pulse Rate 78 06/18/18 10:00 Respiratory Rate 18 06/18/18 10:00 Blood Pressure 138/79 06/18/18 10:00 O2 Sat by Pulse Oximetry (%) 98 06/17/18 04:29 Labs: CBC, BMP 06/18/18 05:30 06/18/18 05:30 Problem List - Problems (1) DKA (diabetic ketoacidoses) Assessment/Plan: Suspect coffee ground reflects retained gastric content as opposed to true GI bleeding Advise continiuing BID PPI for now Continue reglan for now but she should not be maintained on this correction. 3- 4 doses. reenforced the need for glycemic control Advance to full liquid diabetic. if tolerates chopped diet Patient should be maintained on chopped diet if tolerating. Will need follow- up with her car parker Dr. Jj Ortiz for continued treatment of what appears to be a peptic stricture. Code(s): E13.10 - OTH DIABETES MELLITUS WITH KETOACIDOSIS WITHOUT COMA Qualifiers: Diabetes mellitus type: other specified (including MARITO) Diabetes mellitus complication detail: without coma Qualified Code(s): E13.10 - Other specified diabetes mellitus with ketoacidosis without coma
[2018-06-18] MEDS ORDERED: PT OWN MED DRAWER 7, Y5N ONE (11:10)
--- NOTE | 2018-06-18 12:32 | PN ---
Teaching Attending Note Name of Resident: Saravanan Avery ATTENDING PHYSICIAN STATEMENT I saw and evaluated the patient. I reviewed the resident's note and discussed the case with the resident. I agree with the resident's findings and plan as documented. SUBJECTIVE: Patient seen and examined in the ICU. Off insulin drip. (+) Nausea OBJECTIVE: Intake & Output 06/15/18 06/16/18 06/17/18 06/18/18 23:59 23:59 23:59 23:59 Intake Total 7180 900 Output Total 5500 1000 Balance 1680 -100 Weight 130 lb 135 lb 9.6 oz 135 lb 8 oz Last Vital Signs Temp Pulse Resp BP Pulse Ox 99.4 F 78 18 138/79 98 06/18/18 10:00 06/18/18 10:00 06/18/18 10:00 06/18/18 10:00 06/17/18 04:29 Active Medications Chlorhexidine Gluconate (Hibiclens For Decolonization -) 1 applic TP HS [facility] Last Admin: 06/17/18 21:10 Dose: 1 applic Heparin Sodium (Porcine) (Heparin -) 5,000 unit SQ TID [facility] Last Admin: 06/18/18 05:59 Dose: 5,000 unit Dextrose/Sodium Chloride (D5-1/2ns+40 Meq Kcl -) 40 meq in 1,000 mls @ 75 mls/ hr IV ASDIR [facility] Last Admin: 06/17/18 23:35 Dose: 75 mls/hr Potassium Phosphate 30 mm/ (Sodium Chloride) 260 mls @ 62.5 mls/hr IVPB ONCE ONE Stop: 06/18/18 12:54 Last Admin: 06/18/18 11:10 Dose: 62.5 mls/hr Insulin Aspart (Novolog Vial Sliding Scale -) 1 vial SQ ACHS [facility]; Protocol Last Admin: 06/18/18 11:04 Dose: 12 units Lorazepam (Ativan Injection -) 1 mg IVPUSH Q6H PRN PRN Reason: ANXIETY Last Admin: 06/17/18 07:45 Dose: 1 mg Metoclopramide HCl (Reglan Injection -) 10 mg IVPUSH TIDAC [facility] Last Admin: 06/18/18 10:00 Dose: 10 mg Mupirocin (Bactroban Ointment (For Decolonization) -) 1 applic NS BID [facility] Stop: 06/22/18 09:59 Last Admin: 06/18/18 09:33 Dose: 1 applic Pantoprazole Sodium (Protonix -) 20 mg PO BID [facility] Gen: Awake and alert Heart: tachycardic, regular Lung: decreased breath sounds at the bases Abd: soft, (+) BS, (+) mild tenderness Ext: no edema Laboratory Results - last 24 hr 06/17/18 06/17/18 06/17/18 07:44 07:44 08:22 WBC RBC Hgb Hct MCV MCH MCHC RDW Plt Count MPV Absolute Neuts (auto) Neutrophils % Neutrophils % (Manual) 77.2 Band Neutrophils % 3.0 Lymphocytes % Lymphocytes % (Manual) 12.9 Monocytes % Monocytes % (Manual) 6 D Eosinophils % Eosinophils % (Manual) 0.0 Basophils % Basophils % (Manual) 0.0 Myelocytes % (Man) 0 Promyelocytes % (Man) 0 Blast Cells % (Manual) 0 Nucleated RBC % Metamyelocytes 1 Hypochromia 0 Platelet Estimate Normal Polychromasia 0 Poikilocytosis 2+ Anisocytosis 1+ Microcytosis 1+ Macrocytosis 1+ Ovalocytes 1+ Sodium Potassium Chloride Carbon Dioxide Anion Gap BUN Creatinine Creat Clearance w eGFR POC Glucometer > 400 Random Glucose Lactic Acid Calcium Phosphorus Magnesium Iron 12 L TIBC 448 Iron Saturation 3 L Total Bilirubin AST ALT Alkaline Phosphatase Total Protein Albumin 06/17/18 06/17/18 06/17/18 09:55 11:00 11:47 WBC RBC Hgb Hct MCV MCH MCHC RDW Plt Count MPV Absolute Neuts (auto) Neutrophils % Neutrophils % (Manual) Band Neutrophils % Lymphocytes % Lymphocytes % (Manual) Monocytes % Monocytes % (Manual) Eosinophils % Eosinophils % (Manual) Basophils % Basophils % (Manual) Myelocytes % (Man) Promyelocytes % (Man) Blast Cells % (Manual) Nucleated RBC % Metamyelocytes Hypochromia Platelet Estimate Polychromasia Poikilocytosis Anisocytosis Microcytosis Macrocytosis Ovalocytes Sodium Potassium Chloride Carbon Dioxide Anion Gap BUN Creatinine Creat Clearance w eGFR POC Glucometer 326.76198 239.71984 222.59652 Random Glucose Lactic Acid Calcium Phosphorus Magnesium Iron TIBC Iron Saturation Total Bilirubin AST ALT Alkaline Phosphatase Total Protein Albumin 06/17/18 06/17/18 06/17/18 12:00 12:00 14:10 WBC RBC Hgb Hct MCV MCH MCHC RDW Plt Count MPV Absolute Neuts (auto) Neutrophils % Neutrophils % (Manual) Band Neutrophils % Lymphocytes % Lymphocytes % (Manual) Monocytes % Monocytes % (Manual) Eosinophils % Eosinophils % (Manual) Basophils % Basophils % (Manual) Myelocytes % (Man) Promyelocytes % (Man) Blast Cells % (Manual) Nucleated RBC % Metamyelocytes Hypochromia Platelet Estimate Polychromasia Poikilocytosis Anisocytosis Microcytosis Macrocytosis Ovalocytes Sodium 150 H Potassium 4.1 Chloride 124 H Carbon Dioxide 16 L Anion Gap 10 BUN 37 H Creatinine 1.3 Creat Clearance w eGFR 43.54 POC Glucometer 255.74355 Random Glucose 232 H Lactic Acid 3.0 H* Calcium 8.5 Phosphorus 1.6 L Magnesium 2.1 Iron TIBC Iron Saturation Total Bilirubin AST ALT Alkaline Phosphatase Total Protein Albumin 06/17/18 06/17/18 06/17/18 16:13 18:27 20:55 WBC RBC Hgb Hct MCV MCH MCHC RDW Plt Count MPV Absolute Neuts (auto) Neutrophils % Neutrophils % (Manual) Band Neutrophils % Lymphocytes % Lymphocytes % (Manual) Monocytes % Monocytes % (Manual) Eosinophils % Eosinophils % (Manual) Basophils % Basophils % (Manual) Myelocytes % (Man) Promyelocytes % (Man) Blast Cells % (Manual) Nucleated RBC % Metamyelocytes Hypochromia Platelet Estimate Polychromasia Poikilocytosis Anisocytosis Microcytosis Macrocytosis Ovalocytes Sodium Potassium Chloride Carbon Dioxide Anion Gap BUN Creatinine Creat Clearance w eGFR POC Glucometer 271.65598 206.13496 103.12902 Random Glucose Lactic Acid Calcium Phosphorus Magnesium Iron TIBC Iron Saturation Total Bilirubin AST ALT Alkaline Phosphatase Total Protein Albumin 06/17/18 06/18/18 06/18/18 23:45 02:01 04:37 WBC RBC Hgb Hct MCV MCH MCHC RDW Plt Count MPV Absolute Neuts (auto) Neutrophils % Neutrophils % (Manual) Band Neutrophils % Lymphocytes % Lymphocytes % (Manual) Monocytes % Monocytes % (Manual) Eosinophils % Eosinophils % (Manual) Basophils % Basophils % (Manual) Myelocytes % (Man) Promyelocytes % (Man) Blast Cells % (Manual) Nucleated RBC % Metamyelocytes Hypochromia Platelet Estimate Polychromasia Poikilocytosis Anisocytosis Microcytosis Macrocytosis Ovalocytes Sodium Potassium Chloride Carbon Dioxide Anion Gap BUN Creatinine Creat Clearance w eGFR POC Glucometer 85.15732 109.47734 [phone] Random Glucose Lactic Acid Calcium Phosphorus Magnesium Iron TIBC Iron Saturation Total Bilirubin AST ALT Alkaline Phosphatase Total Protein Albumin 06/18/18 06/18/18 06/18/18 05:30 05:30 05:42 WBC 15.9 H RBC 3.06 L Hgb 8.4 L Hct 24.8 L D MCV 81.1 MCH 27.4 MCHC 33.7 RDW 18.4 H Plt Count 312 D MPV 7.5 Absolute Neuts (auto) 13.0 H Neutrophils % 81.5 Neutrophils % (Manual) Band Neutrophils % Lymphocytes % 11.9 Lymphocytes % (Manual) Monocytes % 6.3 Monocytes % (Manual) Eosinophils % 0.0 D Eosinophils % (Manual) Basophils % 0.3 Basophils % (Manual) Myelocytes % (Man) Promyelocytes % (Man) Blast Cells % (Manual) Nucleated RBC % 0 Metamyelocytes Hypochromia Platelet Estimate Polychromasia Poikilocytosis Anisocytosis Microcytosis Macrocytosis Ovalocytes Sodium 149 H Potassium 3.3 L Chloride 121 H Carbon Dioxide 20 L Anion Gap 8 BUN 14 Creatinine 0.7 Creat Clearance w eGFR > 60 POC Glucometer 140.41998 Random Glucose 115 H Lactic Acid Calcium 7.8 L Phosphorus 1.8 L Magnesium 2.0 Iron TIBC Iron Saturation Total Bilirubin 0.3 AST 17 ALT 19 Alkaline Phosphatase 78 Total Protein 5.9 L Albumin 3.1 L ASSESSMENT AND PLAN: Diabetic Ketoacidosis Acute Kidney Injury HTN Hyperlipidemia Diabetic Gastroparesis h/o CVA - D/C insulin drip as AG is closed - BGM - IVF: D5 1/2 - f/u cultures - Replete lytes - Monitor urine output, creatinine - protonix - DVT prophylaxis - Floor Dr Otero
[2018-06-18] MEDS ORDERED: INSULIN (LEVEMIR) 100 UNITS/ML UNITS SQ ONE (13:31)
[2018-06-18] MEDS: D5-1/2NS+40 MEQ KCL - 40 MEQ/1,000 ML INFUS.BAG IV SCH (14:00)
[2018-06-18] MEDS ORDERED: INSULIN (NOVOLOG) ASPART 100 UNITS/ML 10ML VIAL ONE (17:04)
[2018-06-18] MEDS: ACETAMINOPHEN 325 MG TABLET (FP) PO PRN (17:47)
[2018-06-18] MEDS ORDERED: MELATONIN 5 MG TABLETS PO ONE (19:55)
[2018-06-18] MEDS: ACETAMINOPHEN 650 MG/20.3 ML ORAL SOLUTION (CUPS) PO PRN (20:35)
[2018-06-18] MEDS ORDERED: PANTOPRAZOLE 20 MG TABLET (FP) PO SCH (22:00)
[2018-06-18] MEDS: CHLORHEXIDINE GLUCONATE 4% CLEANSER FOR DECOLONIZATION TP SCH (22:23)
[2018-06-18] MEDS ORDERED: D5-1/2NS+40 MEQ KCL - 40 MEQ/1,000 ML INFUS.BAG IV SCH (22:39)
[2018-06-18] MEDS ORDERED: LORazepam 2 MG/ML SDV VIAL IVPUSH PRN (22:39)
[2018-06-18] MEDS ORDERED: METOCLOPRAMIDE HCL INJECTION 10 MG/2 ML VIAL IVPUSH ONE (23:36)
[2018-06-19] MEDS: ACETAMINOPHEN 650 MG/20.3 ML ORAL SOLUTION (CUPS) PO PRN (06:18)
[2018-06-19] MEDS: HEPARIN NA (PORCINE) 5,000 UNITS/ML 1ML VIAL SQ SCH ×3 (06:22→22:07)
[2018-06-19] MEDS: METOCLOPRAMIDE HCL INJECTION 10 MG/2 ML VIAL IVPUSH SCH ×2 (06:23→11:18)
[2018-06-19] MEDS ORDERED: INSULIN SLIDING SCALE (NOVOLOG) 1 VIAL SQ SCH ×2 (07:00→22:00)
[2018-06-19 07:16] LABS: BASO % 0.6 % (0-2.0); EOS % 0.2 % (0-4.5); HEMATOCRIT 27.8 % (32.4-45.2); HEMOGLOBIN 9.4 GM/dL (10.7-15.3); LYMPH % 34.6 % (8-40); MCH 27.6 pg (25.7-33.7); MCHC 33.6 g/dl (32.0-36.0); MEAN CELL VOLUME 82.1 fl (80-96); MONO % 6.3 % (3.8-10.2); NEUT % 58.3 % (42.8-82.8); PLATELET COUNT 319 K/MM3 (134-434); RBC 3.39 M/mm3 (3.60-5.2); RDW 18.6 % (11.6-15.6); WHITE BLOOD COUNT 10.1 K/mm3 (4.0-10.0)
[2018-06-19 07:20] LABS: MAGNESIUM 2.5 mg/dL (1.8-2.4); PHOSPHOROUS 2.2 mg/dL (2.5-4.9)
[2018-06-19] MEDS ORDERED: INSULIN (LEVEMIR) 100 UNITS/ML UNITS SQ SCH ×2 (10:00→17:17)
[2018-06-19] MEDS ORDERED: PANTOPRAZOLE 20 MG TABLET (FP) PO SCH (10:00)
[2018-06-19] MEDS ORDERED: MUPIROCIN 2% TOPICAL OINTMENT FOR DECOLONIZATION NS SCH (10:00)
[2018-06-19 10:07] LABS: ANION GAP 10 MMOL/L (8-16); BLOOD UREA NITROGEN 12 mg/dL (7-18); CALCIUM 8.8 mg/dL (8.5-10.1); CHLORIDE 112 mmol/L (98-107); CO2 23 mmol/L (21-32); CREATININE 0.6 mg/dL (0.55-1.3); GLUCOSE,RANDOM 156 mg/dL (74-106); POTASSIUM 3.4 mmol/L (3.5-5.1); SODIUM 144 mmol/L (136-145)
[2018-06-19] MEDS: NAPH,MB-DB/K PH,MBDB POWDER PACKET PO SCH ×2 (11:17→22:07)
[2018-06-19] MEDS ORDERED: INSULIN (NOVOLOG) ASPART 100 UNITS/ML 10ML VIAL ONE (11:23)
--- NOTE | 2018-06-19 12:25 | PN ---
Progress Note (short form) - Note Progress Note: Feels better No new complaints Wants more food, Had banana, glucerna Vital Signs Period Temp Pulse Resp BP Sys/Rapp Pulse Ox Last 24 Hr 98.3 F-99.7 F 68-80 18-24 127-148/76-90 PE:Aox3 Neck: supple, No JVD HEENT: EOMI Lungs: CTA CVS: S1S2 Abd: Benign Ext: NO edema Neuor: No focal deficit CMP Sodium 144 mmol/L (136-145) 06/19/18 06:00 Potassium 3.4 mmol/L (3.5-5.1) L 06/19/18 06:00 Chloride 112 mmol/L (98-107) H 06/19/18 06:00 Carbon Dioxide 23 mmol/L (21-32) 06/19/18 06:00 Anion Gap 10 MMOL/L (8-16) 06/19/18 06:00 BUN 12 mg/dL (7-18) 06/19/18 06:00 Creatinine 0.6 mg/dL (0.55-1.3) 06/19/18 06:00 Creat Clearance w eGFR > 60 (>60) 06/19/18 06:00 POC Glucometer 525 UNITS (80-120) 06/19/18 11:26 Random Glucose 156 mg/dL (74-106) H 06/19/18 06:00 Hemoglobin A1c % 10.4 % (4.2-6.3) H 06/17/18 07:44 Lactic Acid 3.0 mmol/L (0.4-2.0) H* 06/17/18 12:00 Calcium 8.8 mg/dL (8.5-10.1) 06/19/18 06:00 Phosphorus 2.2 mg/dL (2.5-4.9) L 06/19/18 06:00 Magnesium 2.5 mg/dL (1.8-2.4) H 06/19/18 06:00 Iron 12 ug/dL (27-159) L 06/17/18 07:44 TIBC 448 ug/dL (250-450) 06/17/18 07:44 Iron Saturation 3 % (15-55) L 06/17/18 07:44 Total Bilirubin 0.3 mg/dL (0.2-1) 06/18/18 05:30 AST 17 U/L (15-37) 06/18/18 05:30 ALT 19 U/L (13-61) 06/18/18 05:30 Alkaline Phosphatase 78 U/L (45-117) 06/18/18 05:30 Creatine Kinase 37 IU/L (26-192) 06/16/18 23:59 Troponin I < 0.02 ng/ml (0.00-0.05) 06/16/18 23:59 Total Protein 5.9 g/dl (6.4-8.2) L 06/18/18 05:30 Albumin 3.1 g/dl (3.4-5.0) L 06/18/18 05:30 Serum , Qual Negative 06/16/18 23:59 Current Medications Generic Name Dose Route Start Last Admin Trade Name Freq PRN Reason Stop Dose Admin Acetaminophen 650 mg 06/18/18 16:07 06/19/18 06:18 Tylenol Oral Solution - PO 650 mg Q6H PRN Administration PAIN OR FEVER Heparin Sodium (Porcine) 5,000 unit 06/19/18 06:00 06/19/18 06:22 Heparin - SQ 5,000 unit TID [facility] Administration Insulin Aspart 1 vial 06/19/18 07:00 06/19/18 06:23 Novolog Vial Sliding Scale - SQ 2 units ACHS [facility] Administration Protocol Insulin Detemir 20 units 06/19/18 10:00 Levemir Vial SQ DAILY@0700 [facility] Lorazepam 1 mg 06/18/18 22:39 Ativan Injection - IVPUSH Q6H PRN ANXIETY Metoclopramide HCl 10 mg 06/19/18 07:00 06/19/18 11:18 Reglan Injection - IVPUSH 10 mg TIDAC [facility] Administration Pantoprazole Sodium 20 mg 06/19/18 10:00 06/19/18 11:18 Protonix - PO 20 mg BID [facility] Administration Potassium Phos/Sodium Phos 1 packet 06/19/18 10:00 06/19/18 11:17 Phos-Nak Packet - PO 06/19/18 22:01 1 packet BID [facility] Administration AP: T1DM DKA Gastroparesis Levemir 20 units today and daily BGM Q ACHS and 3 Am . Change Novolog SS coverage Off D5 1/2NS Electrolyte replacement as necessary Will F/u
--- NOTE | 2018-06-19 16:59 | PN ---
Physical Exam: SUBJECTIVE: Patient seen and examined this AM. She states that she feels much better today and states that she is tolerating the full liquid diet well. OBJECTIVE: Vital Signs Period Temp Pulse Resp BP Sys/Rapp Pulse Ox Last 24 Hr 98 F-98.8 F 68-80 18-20 127-148/70-82 GENERAL: A&O, agitation improved HEAD: Normocephalic, atraumatic. EYES: PERRL, no scleral icterus EARS, NOSE, THROAT: oropharynx clear without exudates. NECK: supple without lymphadenopathy LUNGS: Tachypnia resolved, CTA b/l, no crackles or wheezes HEART: Regular rate and rhythm, normal S1 and S2 without murmur ABDOMEN: Soft, nontender to palpation, normoactive bowel sounds MUSCULOSKELETAL: No bony deformities or tenderness. EXTREMITIES: 2+ pulses, warm, well-perfused. No peripheral edema. NEUROLOGICAL: Cranial nerves II-XII grossly intact. Normal speech. Laboratory Results - last 24 hr 06/18/18 06/18/18 06/18/18 14:32 16:45 21:33 WBC RBC Hgb Hct MCV MCH MCHC RDW Plt Count MPV Absolute Neuts (auto) Neutrophils % Lymphocytes % Monocytes % Eosinophils % Basophils % Nucleated RBC % Sodium Potassium Chloride Carbon Dioxide Anion Gap BUN Creatinine Creat Clearance w eGFR POC Glucometer [phone] 248 Random Glucose Calcium Phosphorus Magnesium 06/19/18 06/19/18 06/19/18 06:00 06:00 06:21 WBC 10.1 H RBC 3.39 L Hgb 9.4 L Hct 27.8 L MCV 82.1 MCH 27.6 MCHC 33.6 RDW 18.6 H Plt Count 319 MPV 8.0 Absolute Neuts (auto) 5.9 Neutrophils % 58.3 D Lymphocytes % 34.6 D Monocytes % 6.3 Eosinophils % 0.2 D Basophils % 0.6 Nucleated RBC % 0 Sodium 144 Potassium 3.4 L Chloride 112 H Carbon Dioxide 23 Anion Gap 10 BUN 12 Creatinine 0.6 Creat Clearance w eGFR > 60 POC Glucometer 194 Random Glucose 156 H Calcium 8.8 Phosphorus 2.2 L Magnesium 2.5 H 06/19/18 11:26 WBC RBC Hgb Hct MCV MCH MCHC RDW Plt Count MPV Absolute Neuts (auto) Neutrophils % Lymphocytes % Monocytes % Eosinophils % Basophils % Nucleated RBC % Sodium Potassium Chloride Carbon Dioxide Anion Gap BUN Creatinine Creat Clearance w eGFR POC Glucometer 525 Random Glucose Calcium Phosphorus Magnesium Active Medications Generic Name Dose Route Start Last Admin Trade Name Donavan PRN Reason Stop Dose Admin Acetaminophen 650 mg 06/18/18 16:07 06/19/18 06:18 Tylenol Oral Solution - PO 650 mg Q6H PRN Administration PAIN OR FEVER Heparin Sodium (Porcine) 5,000 unit 06/19/18 06:00 06/19/18 15:35 Heparin - SQ Not Given TID [facility] Insulin Aspart 1 vial 06/19/18 22:00 Novolog Vial Sliding Scale - SQ HS [facility] Protocol Insulin Aspart 1 vial 06/19/18 16:30 Novolog Vial Sliding Scale - SQ TIDAC [facility] Protocol Insulin Detemir 20 units 06/19/18 10:00 06/19/18 11:00 Levemir Vial SQ 20 units DAILY@0700 [facility] Administration Lorazepam 1 mg 06/18/18 22:39 Ativan Injection - IVPUSH Q6H PRN ANXIETY Metoclopramide HCl 10 mg 06/19/18 07:00 06/19/18 11:18 Reglan Injection - IVPUSH 10 mg TIDAC [facility] Administration Pantoprazole Sodium 20 mg 06/19/18 10:00 06/19/18 11:18 Protonix - PO 20 mg BID [facility] Administration Potassium Phos/Sodium Phos 1 packet 06/19/18 10:00 06/19/18 11:17 Phos-Nak Packet - PO 06/19/18 22:01 1 packet BID [facility] Administration ASSESSMENT/PLAN: 48 yo F PMH HTN, CVA (left sided hemiparesis), HLD, IDDM, DKA, Dysphagia, Gastroparesis, esophageal stricture (EGD 02/14), who presents w/ AMS, n/v, elevated blood sugars, and back pain s/p fall. Found to be in DKA Severe DKA -Insulin Drip Completed, Gap closed -Levemir 20 units daily -D5 1/2 NS + 40 mEq of K+ @ 75 cc/hr, hold D5 vs titrate if bgms continue to be elevated -A1C 10.4 -Trend BMP Leukocytosis -Likely secondary to acute DKA process, resolved -Will trend CBC -No infectious source able to be identified at this time -UA with no signs of UTI -CXR with no acute pathology -Abdomen not acutely/focally tender Coffee Ground Emesis with Anemia, resolved -H/H stable, will continue to trend -GI Consulted, not a concern for acute GI bleed at this time -Protonix 40 mg IV BID -Reglan 10 mg ACHS [facility] for n/v for one or two days -Defer EGD in absence of acute bleed -Advance diet as tolerated S/P Fall, Back pain -Imaging negative in ED GIANCARLO -Likely prerenal secondary to hypoperfusion with severe dehydration -Resolved HLD -Lipitor in the past but pt not currently taking Past CVA with residual L sided weakness -Currently stable -No signs of acute CVA DVT Prophylaxis -Heparin 5000 units SQ TID [facility] -Fluids: none -Electrolytes: Monitor Abnormalities and replete as needed, Trend BMP -Nutrition: Full liquid diabetic diet with Glucerna Disposition Med/Surg Visit type - Emergency Visit Emergency Visit: Yes ED Registration Date: 06/17/18 Care time: The patient presented to the Emergency Department on the above date and was hospitalized for further evaluation of their emergent condition. - New Patient This patient is new to me today: No - Critical Care Critical Care patient: No
--- NOTE | 2018-06-19 17:16 | PN ---
Teaching Attending Note Name of Resident: Audi Lacey ATTENDING PHYSICIAN STATEMENT I saw and evaluated the patient. I reviewed the resident's note and discussed the case with the resident. I agree with the resident's findings and plan as documented with exceptions below. SUBJECTIVE: Patient seen and examined. denies any nausea, vomiting or further abdominal pain. Tolerating diet well. OBJECTIVE: Vital Signs Period Temp Pulse Resp BP Sys/Rapp Pulse Ox Last 24 Hr 98 F-98.8 F 68-80 18-20 127-148/70-82 Intake & Output 06/16/18 06/17/18 06/18/18 06/19/18 23:59 23:59 23:59 23:59 Intake Total 7180 2825 1973 Output Total 5500 1350 Balance 1680 1475 1973 Weight 130 lb 135 lb 9.6 oz 135 lb 8 oz General: sitting in bed in no acute distress Chest: CTAB, no rales or wheezing Abdomen:Soft, NT, nD Extremities: no edema Active Medications Acetaminophen (Tylenol Oral Solution -) 650 mg PO Q6H PRN PRN Reason: PAIN OR FEVER Last Admin: 06/19/18 06:18 Dose: 650 mg Heparin Sodium (Porcine) (Heparin -) 5,000 unit SQ TID [facility] Last Admin: 06/19/18 15:35 Dose: Not Given Insulin Aspart (Novolog Vial Sliding Scale -) 1 vial SQ HS [facility]; Protocol Insulin Aspart (Novolog Vial Sliding Scale -) 1 vial SQ TIDAC [facility]; Protocol Insulin Detemir (Levemir Vial) 20 units SQ DAILY@0700 [facility] Last Admin: 06/19/18 11:00 Dose: 20 units Metoclopramide HCl (Reglan Injection -) 10 mg IVPUSH TIDAC [facility] Last Admin: 06/19/18 11:18 Dose: 10 mg Pantoprazole Sodium (Protonix -) 20 mg PO BID [facility] Last Admin: 06/19/18 11:18 Dose: 20 mg Potassium Phos/Sodium Phos (Phos-Nak Packet -) 1 packet PO BID [facility] Stop: 06/19/18 22:01 Last Admin: 06/19/18 11:17 Dose: 1 packet Laboratory Results - last 24 hr 06/18/18 06/18/18 06/18/18 14:32 16:45 21:33 WBC RBC Hgb Hct MCV MCH MCHC RDW Plt Count MPV Absolute Neuts (auto) Neutrophils % Lymphocytes % Monocytes % Eosinophils % Basophils % Nucleated RBC % Sodium Potassium Chloride Carbon Dioxide Anion Gap BUN Creatinine Creat Clearance w eGFR POC Glucometer 345.62763 352 248 Random Glucose Calcium Phosphorus Magnesium 06/19/18 06/19/18 06/19/18 06:00 06:00 06:21 WBC 10.1 H RBC 3.39 L Hgb 9.4 L Hct 27.8 L MCV 82.1 MCH 27.6 MCHC 33.6 RDW 18.6 H Plt Count 319 MPV 8.0 Absolute Neuts (auto) 5.9 Neutrophils % 58.3 D Lymphocytes % 34.6 D Monocytes % 6.3 Eosinophils % 0.2 D Basophils % 0.6 Nucleated RBC % 0 Sodium 144 Potassium 3.4 L Chloride 112 H Carbon Dioxide 23 Anion Gap 10 BUN 12 Creatinine 0.6 Creat Clearance w eGFR > 60 POC Glucometer 194 Random Glucose 156 H Calcium 8.8 Phosphorus 2.2 L Magnesium 2.5 H 06/19/18 11:26 WBC RBC Hgb Hct MCV MCH MCHC RDW Plt Count MPV Absolute Neuts (auto) Neutrophils % Lymphocytes % Monocytes % Eosinophils % Basophils % Nucleated RBC % Sodium Potassium Chloride Carbon Dioxide Anion Gap BUN Creatinine Creat Clearance w eGFR POC Glucometer 525 Random Glucose Calcium Phosphorus Magnesium Microbiology 06/16/18 23:59 Blood - Peripheral Venous Blood Culture - Preliminary NO GROWTH OBTAINED AFTER 48 HOURS, INCUBATION TO CONTINUE FOR 3 DAYS. 06/16/18 23:30 Blood - Peripheral Venous Blood Culture - Preliminary NO GROWTH OBTAINED AFTER 48 HOURS, INCUBATION TO CONTINUE FOR 3 DAYS. 06/16/18 23:17 Urine - Urine Clean Catch Urine Culture - Final ASSESSMENT AND PLAN: 48 yof with PMhx of HTN, CVA (left sided hemiparesis), HLD, IDDM, DKA, Dysphagia , Gastroparesis, esophageal stricture (EGD 02/14), recurrent admission with DKA, non compliance admitted with severe DKA -Severe DKA, from medication non compliance -Hypokalemia -Severe hypophosphatemia -GIANCARLO, from hypovolumia, osmotic diuresis -Severe hyperglycemia -Leucocytosis, suspect from stress/dehydration/DKA, no focal s/s concerning for infection currently -hyperkalemia, from severe hyperglycemia -Dehydration -Nausea, vomitting, Likely from DKA -?hematemesis -HTN -HLD -IDDM -Dysphagia -Diabetic gastroparesis -Esophageal stricture (EGD 02/14) -Right MCA CVA with left hemiparesis Plan AG closed. off insulin drip. Start levemir 25 units daily. D/bobby D5-1/2 NS. Endocrine input noted. PO neutraphos. Change reglan to PO TIDAC x 1 day, then prn. GI input noted. Change protonix to PO. No focal s/s concerning for infection. Avoid sedatives. Monitor renal function, avoid nephrotoxins, renal dosing of meds. DVTPPX, heparin with caution Old clavicular injury, ambulating well. D/c home in 24 hours if tolerating diet well and no concerns. Plan discussed with patient and all questions answered.
[2018-06-19] MEDS ORDERED: POTASSIUM CHLORIDE TABS 20 MEQ TABLET.ER (FP) PO ONE (17:30)
[2018-06-19] MEDS: INSULIN SLIDING SCALE (NOVOLOG) 1 VIAL SQ SCH (17:43)
[2018-06-19] MEDS: ACETAMINOPHEN 325 MG TABLET (FP) PO PRN (17:44)
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
[2018-06-19] MEDS ORDERED: MELATONIN 5 MG TABLETS PO ONE (23:39)
[2018-06-20 04:52] VITALS: TEMP 98.5
[2018-06-20] MEDS: METOCLOPRAMIDE HCL 10 MG TABLET (FP) PO SCH ×2 (06:05→11:19)
[2018-06-20] MEDS: INSULIN SLIDING SCALE (NOVOLOG) 1 VIAL SQ SCH ×2 (06:06→12:12)
[2018-06-20] MEDS: HEPARIN NA (PORCINE) 5,000 UNITS/ML 1ML VIAL SQ SCH (06:07)
[2018-06-20] MEDS ORDERED: AMINO ACIDS/PROTEIN HYDROLYS 30 ML LIQUID.PKT PO SCH (08:00)
[2018-06-20 09:54] VITALS: BP 170/78; PULSE 74
[2018-06-20] MEDS ORDERED: PANTOPRAZOLE 40 MG TABLET (FP) PO SCH (10:00)
--- NOTE | 2018-06-20 10:38 | PN ---
Progress Note (short form) - Note Progress Note: Feels better Denies any complaints Eager to go home Vital Signs Period Temp Pulse Resp BP Sys/Rapp Pulse Ox Last 24 Hr 98 F-99.3 F 74-88 20-20 120-170/64-78 PE:Aox3 Neck: supple, No JVD HEENT: EOMI Lungs: CTA CVS: S1S2 Abd: Benign Ext: NO edema Neuor: No focal deficit CMP Sodium 144 mmol/L (136-145) 06/19/18 06:00 Potassium 3.4 mmol/L (3.5-5.1) L 06/19/18 06:00 Chloride 112 mmol/L (98-107) H 06/19/18 06:00 Carbon Dioxide 23 mmol/L (21-32) 06/19/18 06:00 Anion Gap 10 MMOL/L (8-16) 06/19/18 06:00 BUN 12 mg/dL (7-18) 06/19/18 06:00 Creatinine 0.6 mg/dL (0.55-1.3) 06/19/18 06:00 Creat Clearance w eGFR > 60 (>60) 06/19/18 06:00 POC Glucometer 110 UNITS (80-120) 06/20/18 06:03 Random Glucose 156 mg/dL (74-106) H 06/19/18 06:00 Hemoglobin A1c % 10.4 % (4.2-6.3) H 06/17/18 07:44 Lactic Acid 3.0 mmol/L (0.4-2.0) H* 06/17/18 12:00 Calcium 8.8 mg/dL (8.5-10.1) 06/19/18 06:00 Phosphorus 2.2 mg/dL (2.5-4.9) L 06/19/18 06:00 Magnesium 2.5 mg/dL (1.8-2.4) H 06/19/18 06:00 Iron 12 ug/dL (27-159) L 06/17/18 07:44 TIBC 448 ug/dL (250-450) 06/17/18 07:44 Iron Saturation 3 % (15-55) L 06/17/18 07:44 Total Bilirubin 0.3 mg/dL (0.2-1) 06/18/18 05:30 AST 17 U/L (15-37) 06/18/18 05:30 ALT 19 U/L (13-61) 06/18/18 05:30 Alkaline Phosphatase 78 U/L (45-117) 06/18/18 05:30 Creatine Kinase 37 IU/L (26-192) 06/16/18 23:59 Troponin I < 0.02 ng/ml (0.00-0.05) 06/16/18 23:59 Total Protein 5.9 g/dl (6.4-8.2) L 06/18/18 05:30 Albumin 3.1 g/dl (3.4-5.0) L 06/18/18 05:30 Serum , Qual Negative 06/16/18 23:59 Active Medications Generic Name Dose Route Start Last Admin Trade Name Freq PRN Reason Stop Dose Admin Acetaminophen 650 mg 06/18/18 16:07 06/19/18 06:18 Tylenol Oral Solution - PO 650 mg Q6H PRN Administration PAIN OR FEVER Amino Acids 30 ml 06/20/18 08:00 Prosource No Carb Liquid Pkt PO BID@0800,1730 [facility] Heparin Sodium (Porcine) 5,000 unit 06/19/18 06:00 06/20/18 06:07 Heparin - SQ Not Given TID [facility] Insulin Aspart 1 vial 06/19/18 22:00 06/19/18 23:58 Novolog Vial Sliding Scale - SQ 6 units HS [facility] Administration Protocol Insulin Aspart 1 vial 06/19/18 16:30 06/20/18 06:06 Novolog Vial Sliding Scale - SQ 2 units TIDAC [facility] Administration Protocol Insulin Detemir 25 units 06/19/18 17:17 06/20/18 06:04 Levemir Vial SQ 25 units DAILY@0700 [facility] Administration Metoclopramide HCl 10 mg 06/20/18 07:00 06/20/18 06:05 Reglan - PO 10 mg TIDAC [facility] Administration Pantoprazole Sodium 40 mg 06/20/18 10:00 Protonix - PO DAILY [facility] AP: T1DM DKA Gastroparesis Levemir 25 units daily BGM Q ACHS and 3 Am . Novolog SS coverage Pt is undergoing pump training with her Endo. Pt to f/u next week with her and continue current Insulin regmen for now.
--- NOTE | 2018-06-20 10:52 | PN ---
Teaching Attending Note Name of Resident: Audi Lacey ATTENDING PHYSICIAN STATEMENT I saw and evaluated the patient. I reviewed the resident's note and discussed the case with the resident. I agree with the resident's findings and plan as documented with exceptions below. SUBJECTIVE: Patient seen and examined. tolerating diet well, no nausea, vomiting or abdominal pain. OBJECTIVE: Vital Signs Period Temp Pulse Resp BP Sys/Rapp Pulse Ox Last 24 Hr 98 F-99.3 F 74-88 20-20 120-170/64-78 Intake & Output 06/17/18 06/18/18 06/19/18 06/20/18 23:59 23:59 23:59 23:59 Intake Total 7180 2825 1974 350 Output Total 5500 1350 Balance 1680 1475 1974 350 Weight 135 lb 9.6 oz 135 lb 8 oz General: sitting in bed having breakfast, no acute distress Chest: CTAB, no rales or wheezing Abdomen:Soft, NT, nD Extremities: no edema Home Medications Medication Instructions Recorded Insulin Detemir [Levemir Flextouch] 25 unit SQ DAILY #3 insuln.pen 06/20/18 Laboratory Results - last 24 hr 06/16/18 06/19/18 06/19/18 23:30 11:26 16:59 POC Glucometer 525 212 Crossmatch See Detail 06/19/18 06/20/18 23:54 06:03 POC Glucometer 301 110 Crossmatch ASSESSMENT AND PLAN: 48 yof with PMhx of HTN, CVA (left sided hemiparesis), HLD, IDDM, DKA, Dysphagia , Gastroparesis, esophageal stricture (EGD 02/14), recurrent admission with DKA, non compliance admitted with severe DKA -Severe DKA, from medication non compliance -Hypokalemia -Severe hypophosphatemia -GIANCARLO, from hypovolumia, osmotic diuresis -Severe hyperglycemia -Leucocytosis, suspect from stress/dehydration/DKA, no focal s/s concerning for infection currently -hyperkalemia, from severe hyperglycemia -Dehydration -Nausea, vomitting, Likely from DKA -?hematemesis -HTN -HLD -IDDM -Dysphagia -Diabetic gastroparesis -Esophageal stricture (EGD 02/14) -Right MCA CVA with left hemiparesis Plan Doing well. Endocrine input noted. levemir 25 units daily, outpatient follow up for pump training and further management. Patient counseled on dietary and medication compliance and risks of not taking her medications including recurrent DKA, and . Patient relays understanding, agrees to comply, asking for levemir refill. D/c home today with outpatient GI, PCP and endocrine follow up. Plan discussed with patient in detail, all questions answered.
--- NOTE | 2018-06-20 11:02 | DS ---
Physical Exam: SUBJECTIVE: Patient seen and examined this AM. She states she is feeling much better and expresses interest in going home today. OBJECTIVE: Vital Signs Period Temp Pulse Resp BP Sys/Rapp Pulse Ox Last 24 Hr 98 F-99.3 F 74-88 20-20 120-170/64-78 PHYSICAL EXAM GENERAL: A&O, agitation improved HEAD: Normocephalic, atraumatic. EYES: PERRL, no scleral icterus EARS, NOSE, THROAT: oropharynx clear without exudates. NECK: supple without lymphadenopathy LUNGS: Tachypnia resolved, CTA b/l, no crackles or wheezes HEART: Regular rate and rhythm, normal S1 and S2 without murmur ABDOMEN: Soft, nontender to palpation, normoactive bowel sounds MUSCULOSKELETAL: No bony deformities or tenderness. EXTREMITIES: 2+ pulses, warm, well-perfused. No peripheral edema. NEUROLOGICAL: Cranial nerves II-XII grossly intact. Normal speech. LABS Laboratory Results - last 24 hr 06/16/18 06/19/18 06/19/18 23:30 11:26 16:59 POC Glucometer 525 212 Crossmatch See Detail 06/19/18 06/20/18 23:54 06:03 POC Glucometer 301 110 Crossmatch HOSPITAL COURSE: Date of Admission:06/17/18 Date of Discharge: 06/20/18 HPI on Admission: patient is altered and unable to give a history. The following is obtained from the medical record 48 yo F PMH HTN, CVA (left sided hemiparesis), HLD, IDDM, DKA, Dysphagia, Gastroparesis, esophageal stricture (EGD 02/14), who presents w/ AMS, n/v, elevated blood sugars, and back pain s/p fall. Per EMS, the patient was found on the ground minimally responsive with a blood sugar of greater than 500. The patient has had multiple presentations in the past for DKA. The patient notes that she fell on her back today and reports back pain. She notes nausea and vomiting and reports SOB, chills, chest pain, abdominal pain, fatigue, increased thirst, increased urination with de la rosa positive ROS. The patient notes that she feels similar to her prior presentations for DKA as well. The patient is somewhat a poor historian and is restless/disoriented. Of note, pt mentions she has pain in her left arm and back and that she takes oxycodone and morphine at home. States she last took her insulin at 1pm. She is requesting Dilaudid for pain. In the ED, pt was noted to have coffee ground emesis Hospital Course: DKA was treated as per standard protocol with fluids and Insulin drip in the ICU until she was able to be switched over to SQ and tolerating PO. Her anion gap closed fairly quickly, though it took numerous days to stabilize her glucose levels. She was started on Levemir 25 units daily which managed her sugars well. As far as her coffee ground emesis, it resolved once her DKA was treated and her nausea and vomiting improved. She was seen by GI who recommended to continue protonix in the hospital but was not concerned for upper GI bleed and did not recommend any instrumentation. She was seen by endocrinology who agreed with her management plan and recommended follow up as an outpatient. As she has a history of noncompliance and multiple episodes of DKA, it was stressed to her the importance of better managing her diabetes and being compliant with her insulin use. She was deemed medically safe for discharge with close outpatient follow up. Minutes to complete discharge: 40 Discharge Summary Reason For Visit: DIABETIC KETOACIDOSIS Current Active Problems Coffee ground emesis (Acute) DKA (diabetic ketoacidoses) (Acute) Condition: Stable - Instructions Diet, Activity, Other Instructions: You were admitted to the hospital with severe Diabetic Ketoacidosis with severe dehydration and vomiting. You were treated with fluids and insulin which controlled your sugars. Your electrolytes were also abnormal and were replenished as needed. Your vomiting improved and you were able to tolerate a soft diet. You should continue to advance your diet as tolerated. You were deemed medically safe for discharge to home. Follow ups: You should follow up with your primary care doctor within one week of discharge from the hospital. [place] [facility] [place] if you do not have one. You should follow up with a GI doctor within 1-2 weeks of discharge from the hospital for further evaluation and management of your gastrointestinal symptoms. You should follow up with your holter scanning technician within 1-2 weeks for follow up and better management of your diabetes. It is very important that you better manage your sugar levels to prevent repeated episodes of DKA which could lead to . The information for the holter scanning technician that saw you in the hospital has been provided if you do not have one. Medications: You should take Levemir 25 units every day. This medication has been sent to your pharmacy. You should also check your sugars before all meals and at bedtime, and keep a log/diary in order to show your doctor who can adjust your insulin coverage as necessary if you notice your blood sugars < 75 or persitently > 140 or any reading > 350, please notify your doctor or come to hospital. You were given a medication in the hospital Protonix. For any indigestion or heartburn, you can take an over the counter antacid or acid reducing medication. If you begin to have any severe nausea and vomiting, loss of consciousness, or any concerning symptoms, you should be evaluated by your doctor or return to the Emergency Department. Referrals: Chema Kingsley MD [Staff Physician] - Tyshawn Gama MD [Staff Physician] - Disposition: HOME - Home Medications Comprehensive Discharge Medication List: Ambulatory Orders Insulin Detemir [Levemir Flextouch] 25 unit SQ DAILY #3 insuln.pen 06/20/18 This patient is new to me today: No Emergency Visit: Yes ED Registration Date: 06/17/18 Care time: The patient presented to the Emergency Department on the above date and was hospitalized for further evaluation of their emergent condition. Critical Care patient: No - Discharge Referral Referred to [facility] Med P.C.: No
== END 2018-06-20 13:25 | disposition home or self-care (01) | DRG 638 ==
LOC: JER 22:24 → JERBED 06-17 01:34 → JICU 06-17 05:47 → J7W 06-18 16:23
PROVIDERS: ADMIT Internal Medicine; ATTEND Hospitalist
DX: E10.10 Type 1 diabetes mellitus with ketoacidosis without coma (principal); N17.9 Acute kidney failure, unspecified; I69.354 Hemiplegia and hemiparesis following cerebral infarction affecting left non-dominant side; K92.0 Hematemesis; E87.5 Hyperkalemia; I10 Essential (primary) hypertension; E78.5 Hyperlipidemia, unspecified; Z79.4 Long term (current) use of insulin; R13.10 Dysphagia, unspecified; F17.210 Nicotine dependence, cigarettes, uncomplicated; F12.10 Cannabis abuse, uncomplicated; Z91.14 Patient's other noncompliance with medication regimen; S39.82XA Other specified injuries of lower back, initial encounter; W01.0XXA Fall on same level from slipping, tripping and stumbling without subsequent striking against object, initial encounter; Y93.89 Activity, other specified; Y92.89 Other specified places as the place of occurrence of the external cause; Y99.8 Other external cause status; E88.09 Other disorders of plasma-protein metabolism, not elsewhere classified; E83.39 Other disorders of phosphorus metabolism; R35.0 Frequency of micturition; E87.6 Hypokalemia; E86.0 Dehydration
CPT/HCPCS: 36415; 36600; 70450-TC; 71045-TC-FY; 72125-TC; 80048; 80053; 80307; 81003; 82009; 82550; 82803; 82962; 83036; 83540; 83550; 83605; 83735; 84100; 84484; 84703; 85025; 85044; 86850; 86900; 86901; 86922; 87040; 87086; 93005; 93010; 97116-GP; 97161-GP; 99285-25; J0131; J1644; J7030

== ENCOUNTER 2018-08-03 04:14 | Inpatient (IN) | payer OTHER ==
--- NOTE | 2018-08-03 04:18 | PDOC ---
History of Present Illness - History of Present Illness Initial Comments: 08/03/18 04:22 This 48-year-old woman with a history of IDDM, frequent episodes of DKA, HTN, CVA, HLD is brought into the ER by her fianc (patient in wheelchair) with history of nausea/vomiting/lethargy. Patient began vomiting approximately 24 hours prior to presentation; frequency since then is unclear. Boyfriend had found patient lethargic with vomitus in bed. Just prior to presentation Patient admits to dysuria and frequent urination just prior to onset of nausea and vomiting. No known history of fever/chills, diarrhea, cough. Although patient follows fingerstick monitoring, recent history of levels is unobtainable. Patient's most recent episode of DKA 06/16/18 <Genna Johnston - Last Filed: 08/03/18 07:15> <Costa Tucker - Last Filed: 08/03/18 08:09> - General Chief Complaint: Blood Sugar Problem Stated Complaint: DIABETIC Time Seen by Provider: 08/03/18 04:16 Past History - Past Medical History Anemia: No Asthma: No Cancer: No Cardiac Disorders: No CVA: Yes (JUL 2017) COPD: No CHF: No Dementia: No Diabetes: Yes (IDDM) GI Disorders: Yes (DYSPHAGIA) Disorders: No HTN: No Hypercholesterolemia: Yes Liver Disease: No Seizures: No Thyroid Disease: No - Surgical History Abdominal Surgery: No Appendectomy: No Cardiac Surgery: No Cholecystectomy: Yes (AGE 19) Lung Surgery: No Neurologic Surgery: No Orthopedic Surgery: Yes (L shoulder cyst removed) - Immunization History Td Vaccination: Yes Immunization Up to Date: Yes - Suicide/Smoking/Psychosocial Hx Smoking Status: Yes Smoking History: Current every day smoker Years of Tobacco Use: 15 Have you smoked in the past 12 months: Yes Number of Cigarettes Smoked Daily: 8 'Breaking Loose' booklet given: 01/31/18 Hx Alcohol Use: No Drug/Substance Use Hx: No Substance Use Type: Marijuana Hx Substance Use Treatment: No <Genna Johnston - Last Filed: 08/03/18 07:15> <Costa Tucker - Last Filed: 08/03/18 08:09> - Past Medical History Allergies/Adverse Reactions: Allergies Allergy/AdvReac Type Severity Reaction Status Date / Time No Known Allergies Allergy Verified 06/16/18 22:40 Home Medications: Ambulatory Orders Insulin Detemir [Levemir Flextouch] 25 unit SQ DAILY #3 insuln.pen 06/20/18 *Physical Exam - Physical Exam Comments: GENERAL: Lethargic adult female, intermittently responsive to questioning; hyperventilating 88/51, 114/min, T(rectal)96.9 RR 34/min 100% RA HEAD: Normal with no signs of trauma. EYES: PERRLA, EOMI, sclera anicteric, conjunctiva clear. ENT: Dry mucous membranes. NECK: Normal range of motion, supple without lymphadenopathy, JVD, or masses. LUNGS: Breath sounds equal, clear to auscultation bilaterally. No wheezes, and no crackles. HEART:Regular rate and rhythm, normal S1 and S2 without murmur, rub or gallop. ABDOMEN:.normal bowel sounds No guarding,tenderness or rebound.No masses No distention. EXTREMITIES: Normal range of motion, no edema. No clubbing or cyanosis. No erythema, or tenderness. NEUROLOGICAL: . GCS=E4 + M5+ V4 Moving all 4 extremitities equally MUSCULOSKELETAL: Back non-tender to palpation, no CVA tenderness SKIN: Cool, dry, fair cap refill <Genna Johnston J - Last Filed: 08/03/18 07:15> - Vital Signs Last Vital Signs Temp Pulse Resp BP Pulse Ox 97.5 F L 120 H 34 H 128/68 100 08/03/18 07:40 08/03/18 07:34 08/03/18 07:34 08/03/18 07:34 08/03/18 07:34 <Costa Tucker J - Last Filed: 08/03/18 08:09> Moderate Sedation - Procedure Monitoring Vital Signs: Procedure Monitoring Vital Signs Temperature 97.5 F L 08/03/18 07:40 Pulse Rate 120 H 08/03/18 07:34 Respiratory Rate 34 H 08/03/18 07:34 Blood Pressure 128/68 08/03/18 07:34 O2 Sat by Pulse Oximetry (%) 100 08/03/18 07:34 <Costa Tucker - Last Filed: 08/03/18 08:09> Procedures - Central Line Central Line Lumen: triple Central Line Position: femoral (R) Anesthesia: 1% Lidocaine Amount of anesthesia (ccs): 1 Complications: none Post Central Line Insertion: sutured, good blood return <Genna Johnston - Last Filed: 08/03/18 07:15> ED Treatment Course - LABORATORY CBC & Chemistry Diagram: 08/03/18 05:00 08/03/18 05:21 <Genna Johnston - Last Filed: 08/03/18 07:15> - LABORATORY CBC & Chemistry Diagram: 08/03/18 05:00 08/03/18 05:21 - ADDITIONAL ORDERS Additional order review: Laboratory Results 08/03/18 08/03/18 08/03/18 05:21 05:21 05:21 PT with INR INR Sodium 124 L Potassium 7.1 H* Chloride 89 L Carbon Dioxide 4 L Anion Gap 32 H BUN 58 H Creatinine 2.9 H Creat Clearance w eGFR 17.25 Random Glucose 1440 H* Lactic Acid Calcium 8.4 L Total Bilirubin 0.4 AST 27 ALT 24 Alkaline Phosphatase 127 H Creatine Kinase 101 Troponin I < 0.02 Total Protein 6.8 Albumin 3.4 Urine Color Ltyellow Urine Appearance Slcloudy Urine pH 5.0 Ur Specific [place] 1.022 Urine Protein 1+ H Urine Glucose (UA) 3+ H Urine Ketones 2+ H Urine Blood 1+ H Urine Nitrite Negative Urine Bilirubin Negative Urine Urobilinogen Negative Ur Leukocyte Esterase Negative Urine HCG, Qual Acetone, Qual Positive large 3+ H 08/03/18 08/03/18 08/03/18 05:00 05:00 05:00 PT with INR 11.60 INR 0.98 Sodium Potassium Chloride Carbon Dioxide Anion Gap BUN Creatinine Creat Clearance w eGFR Random Glucose Lactic Acid 4.9 H* Calcium Total Bilirubin AST ALT Alkaline Phosphatase Creatine Kinase Troponin I Total Protein Albumin Urine Color Urine Appearance Urine pH Ur Specific [place] Urine Protein Urine Glucose (UA) Urine Ketones Urine Blood Urine Nitrite Urine Bilirubin Urine Urobilinogen Ur Leukocyte Esterase Urine HCG, Qual Negative Acetone, Qual 08/03/18 05:00 RBC Cancelled MCV Cancelled MCHC Cancelled RDW Cancelled MPV Cancelled Neutrophils % Cancelled Lymphocytes % Cancelled Monocytes % Cancelled Eosinophils % Cancelled Basophils % Cancelled - Medications Given in the ED: ED Medications Discontinued Medications Generic Name Dose Route Start Last Admin Trade Name Freq PRN Reason Stop Dose Admin Sodium Chloride 1,000 mls @ 1,000 mls/hr 08/03/18 05:45 08/03/18 05:53 Normal Saline - IV 08/03/18 06:44 1,000 mls/hr .Q1H STA Administration Sodium Chloride 1,000 mls @ 1,000 mls/hr 08/03/18 05:52 08/03/18 05:53 Normal Saline - IV 08/03/18 06:51 1,000 mls/hr ASDIR STA Administration Sodium Chloride 1,000 mls @ 1,000 mls/hr 08/03/18 06:03 08/03/18 06:04 Normal Saline - IV 08/03/18 07:02 1,000 mls/hr ASDIR STA Administration Piperacillin Sod/Tazobactam 50 mls @ 100 mls/hr 08/03/18 06:04 08/03/18 06:12 Sod 3.375 gm/ Dextrose IVPB 08/03/18 06:33 100 mls/hr ONCE ONE Administration Protocol Sodium Chloride 1,000 mls @ 1,000 mls/hr 08/03/18 07:05 08/03/18 07:17 Normal Saline - IV 08/03/18 08:04 1,000 mls/hr ASDIR STA Administration Insulin Human Regular 10 units 08/03/18 06:24 08/03/18 06:35 Novolin R Vial *For Ivpush Or Iv Drip Only* IVPUSH 08/03/18 06:25 10 units ONCE ONE Administration Sodium Bicarbonate 50 meq 08/03/18 07:12 08/03/18 07:30 Sodium Bicarbonate 8.4% - IVPUSH 08/03/18 07:13 50 meq ONCE ONE Administration <Costa Tucker - Last Filed: 08/03/18 08:09> Medical Decision Making - Medical Decision Making This 48-year-old woman with a history IDDM and frequent episodes of DKA presents lethargic, hypotensive,tachycardic and hypothermic after vomiting ( unclear frequency) for 24 hours. Unclear source of sepsis at this point. IV access in this patient was very difficult. One peripheral line and one central (right femoral triple-lumen) line obtained and patient received 3 L of normal saline IV over the first 2-1/2 hours. Blair hugger apparatus placed CBC/chemistry profile/troponin/serum acetone/urinalysis/urine and blood cultures obtained Zosyn 3. 375 grams IV started per clear after cultures obtained. Preliminary chemistry results: Potassium 7.1 (NOT hemolyzed) uncorrected sodium 124, chloride 89, CO2 for, anion gap of calculated at 32 with lactic acid of 4.9. Troponin not elevated CBC clotted(repeated) Preliminary glucose greater than 500 with ongoing dilution. (Glucose likely to be around 1000 according to lab) Serum ketone large positive UA dip +protein/glucose/ketone/blood; urine micro pending Insulin regular 10 units IV bolus given followed by insulin infusion at 7 units per hour pCXR obtained: no infiltrate/effusion/CHF 08/03/18 06:[address] Rollins, ICU resident 08/03/18 07:16 Case signed out to Dr Tucker at end of shift <Genna Johnston - Last Filed: 08/03/18 07:15> *DC/Admit/Observation/Transfer <Genna Johnston - Last Filed: 08/03/18 07:15> - Discharge Dispostion Decision to Admit order: Yes <Costa Tucker - Last Filed: 08/03/18 08:09> Diagnosis at time of Disposition: Ketoacidosis in type I diabetes mellitus - Discharge Dispostion Condition at time of disposition: Critical - Referrals Referrals: Doreen Tripp [Primary Care Provider] - - Patient Instructions - Post Discharge Activity
[2018-08-03] MEDS ORDERED: SODIUM CHLORIDE 1,000 ML IV STA ×5 (05:45→09:24)
[2018-08-03 05:51] LABS: URINE APPEARANCE SLCLOUDY; URINE BILIRUBIN NEGATIVE (<2.0 mg/dL); URINE COLOR LTYELLOW; URINE GLUCOSE (UA) 3+ (NEGATIVE); URINE KETONE 2+ (NEGATIVE); URINE LEUK ESTERASE NEGATIVE (NEGATIVE); URINE NITRITE NEGATIVE (NEGATIVE); URINE PROTEIN 1+ (NEGATIVE); URINE UROBILINOGEN NEGATIVE mg/dL (0.2-1.0)
[2018-08-03 06:00] LABS: INR 0.98 (0.83-1.09); PROTHROMBIN TIME (PATIENT) 11.6 SEC (9.7-13.0)
[2018-08-03] MEDS ORDERED: PIPERACILLIN/TAZOBACTAM 3.375 GM VIAL IVPB ONE (06:02)
[2018-08-03] MEDS ORDERED: PIPERACILLIN/TAZOB 3.375 GM 3.375 GM in DEXTROSE 5%-WATER - 50 ML IVPB ONE (06:04)
[2018-08-03] MEDS ORDERED: INSULIN REGULAR HUMAN 100 UNITS/ML *VIAL IVPUSH ONE (06:24)
[2018-08-03] MEDS ORDERED: INSULIN REGULAR HUMAN 100 UNITS/ML *VIAL ONE (06:25)
[2018-08-03] MEDS ORDERED: INSULIN REGULAR 100 UNITS in SODIUM CHLORIDE 99 ML IVPB SCH (06:30)
[2018-08-03 06:31] LABS: ALBUMIN 3.4 g/dl (3.4-5.0); ALK PHOS 127 U/L (45-117); ANION GAP 32 MMOL/L (8-16); BILIRUBIN,TOTAL 0.4 mg/dL (0.2-1); BLOOD UREA NITROGEN 58 mg/dL (7-18); CALCIUM 8.4 mg/dL (8.5-10.1); CHLORIDE 89 mmol/L (98-107); CO2 4 mmol/L (21-32); CREATININE 2.9 mg/dL (0.55-1.3); SGOT/AST 27 U/L (15-37); SGPT/ALT 24 U/L (13-61); SODIUM 124 mmol/L (136-145); TOT PROT 6.8 g/dl (6.4-8.2)
[2018-08-03 06:39] LABS: POTASSIUM 7.1 mmol/L (3.5-5.1)
[2018-08-03] MEDS ORDERED: SODIUM BICARBONATE 8.4% 50 MEQ/50 ML DISP.SYRIN IVPUSH ONE (07:12)
[2018-08-03] MEDS ORDERED: SODIUM BICARBONATE 8.4% 50 MEQ/50 ML VIAL ONE (07:20)
[2018-08-03 07:48] LABS: GLUCOSE,RANDOM 1440 mg/dL (74-106)
[2018-08-03 08:03] LABS: EPI CELLS RARE /HPF (FEW); URINE HYALINE CAST 30 /lpf; URINE MUCUS RARE
[2018-08-03 08:12] LABS: BASO % 0.3 % (0-2.0); EOS % 0.1 % (0-4.5); HEMATOCRIT 34.1 % (32.4-45.2); HEMOGLOBIN 9.4 GM/dL (10.7-15.3); LYMPH % 6.9 % (8-40); MCH 28.6 pg (25.7-33.7); MCHC 27.5 g/dl (32.0-36.0); MEAN PLT VOLUME 8.6 fl (7.5-11.1); MONO % 8.7 % (3.8-10.2); PLATELET COUNT 330 K/MM3 (134-434); RBC 3.28 M/mm3 (3.60-5.2); RDW 18.6 % (11.6-15.6); WHITE BLOOD COUNT 23.1 K/mm3 (4.0-10.0)
[2018-08-03 09:08] LABS: ALBUMIN 2.9 g/dl (3.4-5.0); ALK PHOS 101 U/L (45-117); BILIRUBIN,TOTAL 2.1 mg/dl (0.2-1); BLOOD UREA NITROGEN 45 mg/dl (7-18); CHLORIDE 115 mmol/L (98-107); CREATININE 2.1 mg/dl (0.55-1.3); POTASSIUM 4.8 mmol/L (3.5-5.1); SGOT/AST 39 U/L (15-37); SGPT/ALT 17 U/L (13-61); SODIUM 141 mmol/L (136-145); TOT PROT 5.6 g/dl (6.4-8.2)
[2018-08-03 09:21] LABS: ANION GAP 21 MMOL/L (8-16); CO2 < 5 mmol/L (21-32)
[2018-08-03 09:24] LABS: GLUCOSE,RANDOM 729 mg/dl (74-106)
--- NOTE | 2018-08-03 09:30 | PDOC ---
*Physical Exam - Vital Signs Last Vital Signs Temp Pulse Resp BP Pulse Ox 97.5 F L 116 H 36 H 143/72 100 08/03/18 07:40 08/03/18 08:43 08/03/18 08:43 08/03/18 08:43 08/03/18 08:43 - Physical Exam Comments: 08/03/18 09:27 Patient more alert, oriented to person and place, responsive Serum glucose is down to 700+ Receiving a liter of normal saline, insulin drip 7 units per hour. ED Treatment Course - LABORATORY CBC & Chemistry Diagram: 08/03/18 06:20 08/03/18 08:45 - ADDITIONAL ORDERS Additional order review: Laboratory Results 08/03/18 08/03/18 08/03/18 08:45 05:21 05:21 PT with INR INR Sodium 141 124 L Potassium 4.8 7.1 H* Chloride 115 H 89 L Carbon Dioxide < 5 L 4 L Anion Gap 21 H 32 H BUN 45 H 58 H Creatinine 2.1 H 2.9 H Creat Clearance w eGFR 25.03 17.25 Random Glucose 729 H* 1440 H* Lactic Acid Calcium 7.0 L 8.4 L Total Bilirubin 2.1 H 0.4 AST 39 H 27 ALT 17 24 Alkaline Phosphatase 101 127 H Creatine Kinase 101 Troponin I < 0.02 Total Protein 5.6 L 6.8 Albumin 2.9 L 3.4 Urine Color Urine Appearance Urine pH Ur Specific [place] Urine Protein Urine Glucose (UA) Urine Ketones Urine Blood Urine Nitrite Urine Bilirubin Urine Urobilinogen Ur Leukocyte Esterase Urine WBC (Auto) Urine RBC (Auto) Ur Epithelial Cells Hyaline Casts Urine Mucus Urine HCG, Qual Acetone, Qual Positive large 3+ H 08/03/18 08/03/18 08/03/18 05:21 05:00 05:00 PT with INR 11.60 INR 0.98 Sodium Potassium Chloride Carbon Dioxide Anion Gap BUN Creatinine Creat Clearance w eGFR Random Glucose Lactic Acid Calcium Total Bilirubin AST ALT Alkaline Phosphatase Creatine Kinase Troponin I Total Protein Albumin Urine Color Ltyellow Urine Appearance Slcloudy Urine pH 5.0 Ur Specific [place] 1.022 Urine Protein 1+ H Urine Glucose (UA) 3+ H Urine Ketones 2+ H Urine Blood 1+ H Urine Nitrite Negative Urine Bilirubin Negative Urine Urobilinogen Negative Ur Leukocyte Esterase Negative Urine WBC (Auto) <1 Urine RBC (Auto) <1 Ur Epithelial Cells Rare Hyaline Casts 30 Urine Mucus Rare Urine HCG, Qual Negative Acetone, Qual 08/03/18 05:00 PT with INR INR Sodium Potassium Chloride Carbon Dioxide Anion Gap BUN Creatinine Creat Clearance w eGFR Random Glucose Lactic Acid 4.9 H* Calcium Total Bilirubin AST ALT Alkaline Phosphatase Creatine Kinase Troponin I Total Protein Albumin Urine Color Urine Appearance Urine pH Ur Specific [place] Urine Protein Urine Glucose (UA) Urine Ketones Urine Blood Urine Nitrite Urine Bilirubin Urine Urobilinogen Ur Leukocyte Esterase Urine WBC (Auto) Urine RBC (Auto) Ur Epithelial Cells Hyaline Casts Urine Mucus Urine HCG, Qual Acetone, Qual 08/03/18 08/03/18 06:20 05:00 RBC 3.28 L Cancelled MCV 104.0 H Cancelled MCHC 27.5 L Cancelled RDW 18.6 H Cancelled MPV 8.6 Cancelled Neutrophils % 84.0 H D Cancelled Lymphocytes % 6.9 L D Cancelled Monocytes % 8.7 Cancelled Eosinophils % 0.1 Cancelled Basophils % 0.3 Cancelled - Medications Given in the ED: ED Medications Discontinued Medications Generic Name Dose Route Start Last Admin Trade Name Freq PRN Reason Stop Dose Admin Sodium Chloride 1,000 mls @ 1,000 mls/hr 08/03/18 05:45 08/03/18 05:53 Normal Saline - IV 08/03/18 06:44 1,000 mls/hr .Q1H STA Administration Sodium Chloride 1,000 mls @ 1,000 mls/hr 08/03/18 05:52 08/03/18 05:53 Normal Saline - IV 08/03/18 06:51 1,000 mls/hr ASDIR STA Administration Sodium Chloride 1,000 mls @ 1,000 mls/hr 08/03/18 06:03 08/03/18 06:04 Normal Saline - IV 08/03/18 07:02 1,000 mls/hr ASDIR STA Administration Piperacillin Sod/Tazobactam 50 mls @ 100 mls/hr 08/03/18 06:04 08/03/18 06:12 Sod 3.375 gm/ Dextrose IVPB 08/03/18 06:33 100 mls/hr ONCE ONE Administration Protocol Sodium Chloride 1,000 mls @ 1,000 mls/hr 08/03/18 07:05 08/03/18 07:17 Normal Saline - IV 08/03/18 08:04 1,000 mls/hr ASDIR STA Administration Insulin Human Regular 10 units 08/03/18 06:24 08/03/18 06:35 Novolin R Vial *For Ivpush Or Iv Drip Only* IVPUSH 08/03/18 06:25 10 units ONCE ONE Administration Sodium Bicarbonate 50 meq 08/03/18 07:12 08/03/18 07:30 Sodium Bicarbonate 8.4% - IVPUSH 08/03/18 07:13 50 meq ONCE ONE Administration *DC/Admit/Observation/Transfer Diagnosis at time of Disposition: Ketoacidosis in type I diabetes mellitus - Discharge Dispostion Condition at time of disposition: Critical Decision to Admit order Date/Time: Decision to Admit Order Category Date Time Status Decision to Admit to Hospital Routine Admission 08/03/18 08:09 Active - Referrals Referrals: Doreen Tripp [Primary Care Provider] - - Patient Instructions - Post Discharge Activity
[2018-08-03 10:33] LABS: ANISOCYTOSIS 1+; MACROCYTOSIS 1+; PLATELET ESTIMATE NORMAL
[2018-08-03] MEDS: morphine CARPU-JECT 2 MG/1 ML DISP.SYRIN IVPUSH PRN ×2 (11:15→13:00)
[2018-08-03] MEDS ORDERED: LACTATED RINGERS SOLUTION 1,000 ML/1,000 ML INFUS.BAG IV SCH (11:30)
--- NOTE | 2018-08-03 12:32 | PN ---
Teaching Attending Note Name of Resident: Maude Gomez ATTENDING PHYSICIAN STATEMENT I saw and evaluated the patient. I reviewed the resident's note and discussed the case with the resident. I agree with the resident's findings and plan as documented. SUBJECTIVE: Pt seen and examined in the ICU. Pt known from prior similar hospitalizations. Briefly, 48yo female with IDDM, history of noncompliance admitted with severe metabolic acidosis/DKA. Started on IVF and insulin gtt, transferred to the ICU for further monitoring. c/o nausea, abdominal pain. No fevers or chills. OBJECTIVE: Vital Signs Period Temp Pulse Resp BP Sys/Rapp Pulse Ox Last 24 Hr 96.9 F-97.5 F 112-120 30-36 88-143/47-72 100-100 Intake & Output 07/31/18 08/01/18 08/02/18 08/03/18 23:59 23:59 23:59 23:59 Intake Total 5000 Output Total 1600 Balance 3400 Weight 72.575 kg Gen: tachypneic at rest Heart: tachycardic, regular Lung: decreased breath sounds at the bases Abd: soft, nontender Ext: no edema CBC, BMP 08/03/18 06:20 08/03/18 08:45 Active Medications Chlorhexidine Gluconate (Hibiclens For Decolonization -) 1 applic TP HS [facility] Heparin Sodium (Porcine) (Heparin -) 5,000 unit SQ Q8H-IV [facility] Insulin Human Regular 100 (units/ Sodium Chloride) 100 mls @ 7.25 mls/hr IVPB TITR [facility]; Protocol Last Admin: 08/03/18 06:36 Dose: 0.1 units/kg/hr, 7.25 mls/hr Lactated Ringer's (Lactated Ringers Solution) 1,000 ml in 1,000 mls @ 200 mls/ hr IV ASDIR [facility] Mupirocin (Bactroban Ointment (For Decolonization) -) 1 applic NS BID [facility] Stop: 08/08/18 21:59 Potassium Chloride (Potassium Chloride 20 Meq Premix Ivpb -) 20 meq IVPB Q1H [facility] Stop: 08/03/18 12:31 ASSESSMENT AND PLAN: Diabetic Ketoacidosis Severe Metabolic Acidosis Acute Kidney Injury HTN Hyperlipidemia h/o CVA Noncompliance - aggressive IVF resuscitation - insulin gtt - BGM q1h, BMP q4h - monitor anion gap - check ABG - may need bicarb gtt - monitor urine output, creatinine - O2 to keep SpO2 >90% - antiemetics - DVT prophylaxis - continue ICU monitoring critical care time spent in reviewing chart, evaluating patient and formulating plan 35 min
[2018-08-03 12:52] LABS: ARTERIAL BLD GAS O2 SATURATION 99.1 % (90-98.9); ARTERIAL BLOOD GAS PCO2 20.7 mmHg (35-45); ARTERIAL BLOOD GAS pH 7.33 (7.35-7.45)
--- NOTE | 2018-08-03 12:53 | HP ---
Admitting History and Physical - Primary Care Physician PCP: Carol Ann Burns - Admission History of Present Illness: This 48-year-old woman with a history of IDDM, frequent episodes of DKA, HTN, CVA, HLD is brought into the ER by her fianc (patient in wheelchair) with history of nausea/vomiting/lethargy. Patient began vomiting approximately 24 hours prior to presentation; frequency since then is unclear. Boyfriend had found patient lethargic with vomitus in bed. Just prior to presentation Patient admits to dysuria and frequent urination just prior to onset of nausea and vomiting. No known history of fever/chills, diarrhea, cough. Although patient follows fingerstick monitoring, recent history of levels is unobtainable. 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: CVA (right MCA), Migraine Gastrointestinal: Yes: Other (Gastroparesis) ...LMP: 04/14/13 Musculoskeletal: Yes: Chronic low back pain Endocrine: Yes: Diabetes Mellitus - Past Surgical History Past Surgical History: Yes: Cholecystectomy - Smoking History Smoking history: Current every day smoker Have you smoked in the past 12 months: Yes Aproximately how many cigarettes per day: 8 - Alcohol/Substance Use Hx Alcohol Use: No History of Substance Use: reports: None - Social History ADL: Independent History of Recent Travel: No Home Medications - Allergies Allergies/Adverse Reactions: Allergies Allergy/AdvReac Type Severity Reaction Status Date / Time No Known Allergies Allergy Verified 06/16/18 22:40 - Home Medications Home Medications: Ambulatory Orders Insulin Detemir [Levemir Flextouch] 25 unit SQ DAILY #3 insuln.pen 06/20/18 Family Disease History - Family Disease History Family Disease History: Heart Disease: Father (cad) Physical Examination Vital Signs: Vital Signs Temperature 97.5 F L 08/03/18 07:40 Pulse Rate 116 H 08/03/18 08:43 Respiratory Rate 36 H 08/03/18 08:43 Blood Pressure 143/72 08/03/18 08:43 O2 Sat by Pulse Oximetry (%) 100 08/03/18 08:43 Constitutional: Yes: No Distress HENT: Yes: Atraumatic Neck: Yes: Supple Cardiovascular: Yes: Regular Rate and Rhythm Respiratory: Yes: CTA Bilaterally Gastrointestinal: Yes: Normal Bowel Sounds Extremities: Yes: WNL Edema: No Neurological: Yes: Alert, Oriented Labs: CBC, BMP 08/03/18 06:20 08/03/18 08:45 Problem List - Problems (1) Ketoacidosis in type I diabetes mellitus Assessment/Plan: iv insulin iv hydration monitor bgms endo consult Code(s): E10.10 - TYPE 1 DIABETES MELLITUS WITH KETOACIDOSIS WITHOUT COMA Assessment/Plan Laboratory Tests 08/03/18 08/03/18 08/03/18 05:00 05:00 05:00 WBC Cancelled Corrected WBC (auto) Cancelled RBC Cancelled Hgb Cancelled Hct Cancelled MCV Cancelled MCH Cancelled MCHC Cancelled RDW Cancelled Plt Count Cancelled MPV Cancelled Absolute Neuts (auto) Cancelled Absolute Lymphs (auto) Cancelled Absolute Monos (auto) Cancelled Absolute Eos (auto) Cancelled Absolute Basos (auto) Cancelled Add Manual Diff Cancelled Neutrophils % Cancelled Neutrophils % (Manual) Band Neutrophils % Lymphocytes % Cancelled Lymphocytes % (Manual) Monocytes % Cancelled Monocytes % (Manual) Eosinophils % Cancelled Eosinophils % (Manual) Basophils % Cancelled Basophils % (Manual) Myelocytes % (Man) Promyelocytes % (Man) Blast Cells % (Manual) Nucleated RBC % Cancelled Metamyelocytes Hypochromia Platelet Estimate Cancelled Platelet Comment Cancelled Normal RBC Morphology Cancelled Polychromasia Poikilocytosis Anisocytosis Macrocytosis [place] Cells PT with INR 11.60 INR 0.98 Sodium Potassium Chloride Carbon Dioxide Anion Gap BUN Creatinine Creat Clearance w eGFR POC Glucometer Random Glucose Lactic Acid 4.9 H* Calcium Total Bilirubin AST ALT Alkaline Phosphatase Creatine Kinase Troponin I Total Protein Albumin Urine Color Urine Appearance Urine pH Ur Specific [place] Urine Protein Urine Glucose (UA) Urine Ketones Urine Blood Urine Nitrite Urine Bilirubin Urine Urobilinogen Ur Leukocyte Esterase Urine WBC (Auto) Urine RBC (Auto) Ur Epithelial Cells Hyaline Casts Urine Mucus Urine HCG, Qual Acetone, Qual 08/03/18 08/03/18 08/03/18 05:00 05:21 05:21 WBC Corrected WBC (auto) RBC Hgb Hct MCV MCH MCHC RDW Plt Count MPV Absolute Neuts (auto) Absolute Lymphs (auto) Absolute Monos (auto) Absolute Eos (auto) Absolute Basos (auto) Add Manual Diff Neutrophils % Neutrophils % (Manual) Band Neutrophils % Lymphocytes % Lymphocytes % (Manual) Monocytes % Monocytes % (Manual) Eosinophils % Eosinophils % (Manual) Basophils % Basophils % (Manual) Myelocytes % (Man) Promyelocytes % (Man) Blast Cells % (Manual) Nucleated RBC % Metamyelocytes Hypochromia Platelet Estimate Platelet Comment Normal RBC Morphology Polychromasia Poikilocytosis Anisocytosis Macrocytosis [place] Cells PT with INR INR Sodium 124 L Potassium 7.1 H* Chloride 89 L Carbon Dioxide 4 L Anion Gap 32 H BUN 58 H Creatinine 2.9 H Creat Clearance w eGFR 17.25 POC Glucometer Random Glucose 1440 H* Lactic Acid Calcium 8.4 L Total Bilirubin 0.4 AST 27 ALT 24 Alkaline Phosphatase 127 H Creatine Kinase 101 Troponin I < 0.02 Total Protein 6.8 Albumin 3.4 Urine Color Ltyellow Urine Appearance Slcloudy Urine pH 5.0 Ur Specific [place] 1.022 Urine Protein 1+ H Urine Glucose (UA) 3+ H Urine Ketones 2+ H Urine Blood 1+ H Urine Nitrite Negative Urine Bilirubin Negative Urine Urobilinogen Negative Ur Leukocyte Esterase Negative Urine WBC (Auto) <1 Urine RBC (Auto) <1 Ur Epithelial Cells Rare Hyaline Casts 30 Urine Mucus Rare Urine HCG, Qual Negative Acetone, Qual 08/03/18 08/03/18 08/03/18 05:21 06:20 08:45 WBC 23.1 H Corrected WBC (auto) RBC 3.28 L Hgb 9.4 L Hct 34.1 D MCV 104.0 H MCH 28.6 MCHC 27.5 L RDW 18.6 H Plt Count 330 MPV 8.6 Absolute Neuts (auto) 19.4 H Absolute Lymphs (auto) Absolute Monos (auto) Absolute Eos (auto) Absolute Basos (auto) Add Manual Diff Neutrophils % 84.0 H D Neutrophils % (Manual) 86.3 H Band Neutrophils % 0.0 Lymphocytes % 6.9 L D Lymphocytes % (Manual) 8.8 D Monocytes % 8.7 Monocytes % (Manual) 5 Eosinophils % 0.1 Eosinophils % (Manual) 0.0 Basophils % 0.3 Basophils % (Manual) 0.0 Myelocytes % (Man) 0 Promyelocytes % (Man) 0 Blast Cells % (Manual) 0 Nucleated RBC % 0 Metamyelocytes 0 D Hypochromia 0 Platelet Estimate Normal Platelet Comment Normal RBC Morphology Polychromasia 1+ Poikilocytosis 2+ Anisocytosis 1+ Macrocytosis 1+ Jose [place] Cells 2+ PT with INR INR Sodium 141 Potassium 4.8 Chloride 115 H Carbon Dioxide < 5 L Anion Gap 21 H BUN 45 H Creatinine 2.1 H Creat Clearance w eGFR 25.03 POC Glucometer Random Glucose 729 H* Lactic Acid Calcium 7.0 L Total Bilirubin 2.1 H AST 39 H ALT 17 Alkaline Phosphatase 101 Creatine Kinase Troponin I Total Protein 5.6 L Albumin 2.9 L Urine Color Urine Appearance Urine pH Ur Specific [place] Urine Protein Urine Glucose (UA) Urine Ketones Urine Blood Urine Nitrite Urine Bilirubin Urine Urobilinogen Ur Leukocyte Esterase Urine WBC (Auto) Urine RBC (Auto) Ur Epithelial Cells Hyaline Casts Urine Mucus Urine HCG, Qual Acetone, Qual Positive large 3+ H 08/03/18 11:53 WBC Corrected WBC (auto) RBC Hgb Hct MCV MCH MCHC RDW Plt Count MPV Absolute Neuts (auto) Absolute Lymphs (auto) Absolute Monos (auto) Absolute Eos (auto) Absolute Basos (auto) Add Manual Diff Neutrophils % Neutrophils % (Manual) Band Neutrophils % Lymphocytes % Lymphocytes % (Manual) Monocytes % Monocytes % (Manual) Eosinophils % Eosinophils % (Manual) Basophils % Basophils % (Manual) Myelocytes % (Man) Promyelocytes % (Man) Blast Cells % (Manual) Nucleated RBC % Metamyelocytes Hypochromia Platelet Estimate Platelet Comment Normal RBC Morphology Polychromasia Poikilocytosis Anisocytosis Macrocytosis Jose Antonio Cells PT with INR INR Sodium Potassium Chloride Carbon Dioxide Anion Gap BUN Creatinine Creat Clearance w eGFR POC Glucometer [phone] Random Glucose Lactic Acid Calcium Total Bilirubin AST ALT Alkaline Phosphatase Creatine Kinase Troponin I Total Protein Albumin Urine Color Urine Appearance Urine pH Ur Specific [place] Urine Protein Urine Glucose (UA) Urine Ketones Urine Blood Urine Nitrite Urine Bilirubin Urine Urobilinogen Ur Leukocyte Esterase Urine WBC (Auto) Urine RBC (Auto) Ur Epithelial Cells Hyaline Casts Urine Mucus Urine HCG, Qual Acetone, Qual Active Medications Generic Name Dose Route Start Last Admin Trade Name Freq PRN Reason Stop Dose Admin Chlorhexidine Gluconate 1 applic 08/03/18 22:00 Hibiclens For Decolonization - TP HS [facility] Heparin Sodium (Porcine) 5,000 unit 08/03/18 18:00 Heparin - SQ Q8H-IV [facility] Insulin Human Regular 100 100 mls @ 7.25 mls/hr 08/03/18 06:30 08/03/18 06:36 units/ Sodium Chloride IVPB 0.1 units/kg/hr TITR [facility] 7.25 mls/hr Administration Protocol 0.1 UNITS/KG/HR Lactated Ringer's 1,000 ml in 1,000 mls @ 200 mls/hr 08/03/18 11:30 Lactated Ringers Solution IV ASDIR [facility] Mupirocin 1 applic 08/03/18 22:00 Bactroban Ointment (For Decolonization) - NS 08/08/18 21:59 BID [facility] cc time...icu 60 min
[2018-08-03 12:54] LABS: ALLENS TEST POSITIVE
[2018-08-03] MEDS ORDERED: morphine SULFATE 4 MG/ML VIAL ONE (13:50)
--- NOTE | 2018-08-03 13:58 | CONSULT ---
Consultation: REQUESTING PROVIDER: CONSULT REQUEST: We have been asked to medically evaluate this patient for admission to ICU. HISTORY OF PRESENT ILLNESS: 48 y/o F with PMHx of HTN, CVA (left sided hemiparesis), HLD, IDDM, DKA, Dysphagia, Gastroparesis, esophageal stricture (EGD 02/14) was brought into the ED after experiencing Nausea, NBNB Vomiting and lethargy for the past 2 days. Patient is lethargic, easily arousable however only providing very short 1-2 word answers during my interview. As per EMR, patients fiance found patient lethargic after vomiting in her bed, and brought her to the ED. Additionally patient acknowledges Dysuria, urinary frequency and diffuse abdominal pain. In the ED, patient was found to be Tachycardic, Tachypnic, Lactic acid 4.9, BG 1440, K+ 7.1, BUN 58, Cr 2.9. A Central line was place and patient was fluid resuscitated via 3L NS. She was given Insulin regular 10 units IV bolus and started on Insulin drip. Additionally given Zosyn 3.375 x1. She was recently discharged from [facility] in 05/2018 after an episode of DKA. In the past patient has been noncompliant with her medications. 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 Denies any recent fevers, chills, chest pain, SOB, diarrhea, constipation. Denies any recent Sick contacts, travel , medication changes, steroid use. REVIEW OF SYSTEMS: As per HPI PHYSICAL EXAMINATION Vital Signs - 24 hr 08/03/18 08/03/18 08/03/18 04:50 05:51 06:44 Temperature 96.9 F L Pulse Rate 112 H Pulse Rate [ 113 H 112 H Both] Respiratory 34 H 30 H 30 H Rate Blood Pressure 88/51 L Blood Pressure 103/47 L 98/56 L [Right] O2 Sat by Pulse 100 100 100 Oximetry (%) 08/03/18 08/03/18 08/03/18 07:34 07:40 08:43 Temperature 97.5 F L Pulse Rate Pulse Rate [ 120 H 116 H Both] Respiratory 34 H 36 H Rate Blood Pressure Blood Pressure 128/68 143/72 [Right] O2 Sat by Pulse 100 100 Oximetry (%) GENERAL: Sleepy but easily arousable, NAD HEAD: NCAT EYES: PERRL, EOMI EARS, NOSE, THROAT: Dry mucous membranes. NECK: Supple LUNGS: Diminished breath sounds at the bases, No wheezes, no crackles HEART: Tachycardic, normal S1 and S2 without murmur ABDOMEN: Soft, Tender to palpation throughout, not distended, + bowel sounds, no guarding, no rebound EXTREMITIES: No peripheral edema. NEUROLOGICAL: Sleepy but arousable to verbal stimuli SKIN: Warm, dry Laboratory Last Values WBC 23.1 K/mm3 (4.0-10.0) H 08/03/18 06:20 Corrected WBC (auto) Cancelled 08/03/18 05:00 RBC 3.28 M/mm3 (3.60-5.2) L 08/03/18 06:20 Hgb 9.4 GM/dL (10.7-15.3) L 08/03/18 06:20 Hct 34.1 % (32.4-45.2) D 08/03/18 06:20 MCV 104.0 fl (80-96) H 08/03/18 06:20 MCH 28.6 pg (25.7-33.7) 08/03/18 06:20 MCHC 27.5 g/dl (32.0-36.0) L 08/03/18 06:20 RDW 18.6 % (11.6-15.6) H 08/03/18 06:20 Plt Count 330 K/MM3 (134-434) 08/03/18 06:20 MPV 8.6 fl (7.5-11.1) 08/03/18 06:20 Absolute Neuts (auto) 19.4 K/mm3 (1.5-8.0) H 08/03/18 06:20 Absolute Lymphs (auto) Cancelled 08/03/18 05:00 Absolute Monos (auto) Cancelled 08/03/18 05:00 Absolute Eos (auto) Cancelled 08/03/18 05:00 Absolute Basos (auto) Cancelled 08/03/18 05:00 Add Manual Diff Cancelled 08/03/18 05:00 Neutrophils % 84.0 % (42.8-82.8) H D 08/03/18 06:20 Neutrophils % (Manual) 86.3 % (42.8-82.8) H 08/03/18 06:20 Band Neutrophils % 0.0 % 08/03/18 06:20 Lymphocytes % 6.9 % (8-40) L D 08/03/18 06:20 Lymphocytes % (Manual) 8.8 % (8-40) D 08/03/18 06:20 Monocytes % 8.7 % (3.8-10.2) 08/03/18 06:20 Monocytes % (Manual) 5 % (3.8-10.2) 08/03/18 06:20 Eosinophils % 0.1 % (0-4.5) 08/03/18 06:20 Eosinophils % (Manual) 0.0 % (0-4.5) 08/03/18 06:20 Basophils % 0.3 % (0-2.0) 08/03/18 06:20 Basophils % (Manual) 0.0 % (0-2.0) 08/03/18 06:20 Myelocytes % (Man) 0 % (0-2) 08/03/18 06:20 Promyelocytes % (Man) 0 % (0-2) 08/03/18 06:20 Blast Cells % (Manual) 0 % (0-0) 08/03/18 06:20 Nucleated RBC % 0 % (0-0) 08/03/18 06:20 Metamyelocytes 0 % (0-2) D 08/03/18 06:20 Hypochromia 0 08/03/18 06:20 Platelet Estimate Normal 08/03/18 06:20 Platelet Comment Cancelled 08/03/18 05:00 Normal RBC Morphology Cancelled 08/03/18 05:00 Polychromasia 1+ 08/03/18 06:20 Poikilocytosis 2+ 08/03/18 06:20 Anisocytosis 1+ 08/03/18 06:20 Macrocytosis 1+ 08/03/18 06:20 Jose Antonio Cells 2+ 08/03/18 06:20 PT with INR 11.60 SEC (9.7-13.0) 08/03/18 05:00 INR 0.98 (0.83-1.09) 08/03/18 05:00 Puncture Site Right brachial 08/03/18 12:45 ABG pH 7.33 (7.35-7.45) L 08/03/18 12:45 ABG pCO2 at Pt Temp 20.7 mmHg (35-45) L D 08/03/18 12:45 ABG pO2 at Pt Temp 135.0 mmHg (80-100) H 08/03/18 12:45 ABG HCO3 10.5 meq/L (22-26) L* 08/03/18 12:45 ABG O2 Sat (Measured) 99.1 % (90-98.9) H 08/03/18 12:45 ABG O2 Content 12.7 % vol (15-22) L 08/03/18 12:45 ABG Base Excess -14.0 meq/l (-2-2) L* 08/03/18 12:45 Atul Test Positive 08/03/18 12:45 O2 Delivery Device Room air 08/03/18 12:45 Oxygen Flow Rate 21% 08/03/18 12:45 Sodium 141 mmol/L (136-145) 08/03/18 08:45 Potassium 4.8 mmol/L (3.5-5.1) 08/03/18 08:45 Chloride 115 mmol/L (98-107) H 08/03/18 08:45 Carbon Dioxide < 5 mmol/L (21-32) L 08/03/18 08:45 Anion Gap 21 MMOL/L (8-16) H 08/03/18 08:45 BUN 45 mg/dl (7-18) H 08/03/18 08:45 Creatinine 2.1 mg/dl (0.55-1.3) H 08/03/18 08:45 Creat Clearance w eGFR 25.03 (>60) 08/03/18 08:45 POC Glucometer 149.56306 UNITS (80-120) 08/03/18 12:55 Random Glucose 729 mg/dl (74-106) H* 08/03/18 08:45 Lactic Acid 4.9 mmol/L (0.4-2.0) H* 08/03/18 05:00 Calcium 7.0 mg/dl (8.5-10) L 08/03/18 08:45 Total Bilirubin 2.1 mg/dl (0.2-1) H 08/03/18 08:45 AST 39 U/L (15-37) H 08/03/18 08:45 ALT 17 U/L (13-61) 08/03/18 08:45 Alkaline Phosphatase 101 U/L (45-117) 08/03/18 08:45 Creatine Kinase 101 U/L (26-192) 08/03/18 05:21 Troponin I < 0.02 ng/ml (0.00-0.05) 08/03/18 05:21 Total Protein 5.6 g/dl (6.4-8.2) L 08/03/18 08:45 Albumin 2.9 g/dl (3.4-5.0) L 08/03/18 08:45 Urine Color Ltyellow 08/03/18 05:21 Urine Appearance Slcloudy 08/03/18 05:21 Urine pH 5.0 (5.0-8.0) 08/03/18 05:21 Ur Specific [place] 1.022 (1.010-1.035) 08/03/18 05:21 Urine Protein 1+ (NEGATIVE) H 08/03/18 05:21 Urine Glucose (UA) 3+ (NEGATIVE) H 08/03/18 05:21 Urine Ketones 2+ (NEGATIVE) H 08/03/18 05:21 Urine Blood 1+ (NEGATIVE) H 08/03/18 05:21 Urine Nitrite Negative (NEGATIVE) 08/03/18 05:21 Urine Bilirubin Negative (<2.0 mg/dL) 08/03/18 05:21 Urine Urobilinogen Negative mg/dL (0.2-1.0) 08/03/18 05:21 Ur Leukocyte Esterase Negative (NEGATIVE) 08/03/18 05:21 Urine WBC (Auto) <1 /hpf (3-5) 08/03/18 05:21 Urine RBC (Auto) <1 /hpf (0-3) 08/03/18 05:21 Ur Epithelial Cells Rare /HPF (FEW) 08/03/18 05:21 Hyaline Casts 30 /lpf 08/03/18 05:21 Urine Mucus Rare 08/03/18 05:21 Urine HCG, Qual Negative 08/03/18 05:00 Acetone, Qual Positive large 3+ (NEGATIVE) H 08/03/18 05:21 Active Medications Chlorhexidine Gluconate (Hibiclens For Decolonization -) 1 applic TP HS [facility] Heparin Sodium (Porcine) (Heparin -) 5,000 unit SQ Q8H-IV [facility] Heparin Sodium (Porcine) (Heparin -) 5,000 unit SQ BID [facility] Insulin Human Regular 100 (units/ Sodium Chloride) 100 mls @ 7.25 mls/hr IVPB TITR [facility]; Protocol Last Admin: 08/03/18 06:36 Dose: 0.1 units/kg/hr, 7.25 mls/hr Potassium Chloride/Dextrose/Sod Cl (D5-1/2ns+20 Meq Kcl -) 20 meq in 1,000 mls @ 200 mls/hr IV ASDIR [facility] Last Admin: 08/03/18 14:00 Dose: 200 mls/hr Insulin Aspart (Novolog Vial Sliding Scale -) 1 vial SQ ACHS [facility]; Protocol Morphine Sulfate (Morphine Injection -) 2 mg IVPUSH Q3H PRN PRN Reason: PAIN LEVEL 6-10 Last Admin: 08/03/18 13:00 Dose: 2 mg Mupirocin (Bactroban Ointment (For Decolonization) -) 1 applic NS BID [facility] Stop: 08/08/18 21:59 ASSESSMENT/PLAN: 48 y/o F with PMHx of HTN, CVA (left sided hemiparesis), HLD, IDDM, DKA, Dysphagia, Gastroparesis, esophageal stricture (EGD 02/14) was found to be in DKA and will be further monitored in ICU. #Neuro Hx of CVA (left sided hemiparesis) -A&Ox3, NAD -No active issues, continue to monitor #Cardio Tachycardia, Tachypnea Hx of HTN, HLD -Trop < 0.02 -S/P 6L NS -Hold Anti-HTN, Continue to monitor for hypotension #Pulmonary -CXR: No acute chest pathology -No active issues, continue to monitor #GI Hx of Dysphagia, Gastroparesis, esophageal stricture (EGD 02/14) -Anti-Emetics PRN #Renal GIANCARLO Hyperkalemia, Resolved Hyponatremia, Corrected -Likely prerenal due to hypovolemia -S/P Kcl x 40 mEq -Continue D5-1/2NS + 20 mEq KCl @ 200 mls/hr -Monitor Urine Output, Cr #Heme Macrocytic Anemia -Check B12, Folate -Continue to monitor #Endo DKA Lactic acidosis, Likely due to DKA Hx of IDDM, Multiple DKA Episodes -pH 7.33, AG 32-->21 -UA: 1+ protein, 3+ Glucose, 2+ Ketones -Acetone: Positive Large 3+ -S/P 6L NS, Sodium Bicarb 8.4% 50 mEq x1 -Continue D5-1/2NS + 20 mEq KCl @ 200 mls/hr -Received 10u Insulin Bolus; Continue Insulin gtt -Pain Control via Morphine 2mg Q3H PRN -BGMs Q1H to maintain a steady decline of 75/hr -BMP Q4H to monitor Anion Gap -ISS -NPO For now; Can advance once DKA Resolves #ID Leukocytosis, Likely reactive -Blood and Urince Cx pending -Received Zosyn x1 -Will monitor off Abx for now #FEN -D5-1/2NS + 20 mEq KCl @ 200 mls/hr -Replete Lytes PRN -NPO #PPx -DVT: Heparin TID Code Status: Full Code Dispo: We will continue to follow the patient. Thank you for this consultative opportunity. Visit type - Emergency Visit Emergency Visit: Yes ED Registration Date: 08/03/18 Care time: The patient presented to the Emergency Department on the above date and was hospitalized for further evaluation of their emergent condition. - New Patient This patient is new to me today: Yes Date on this admission: 08/03/18 - Critical Care Critical Care patient: Yes Total Critical Care Time (in minutes): 45 Critical Care Statement: The care of this patient involved high complexity decision making to prevent further life threatening deterioration of the patient 's condition and/or to evaluate & treat vital organ system(s) failure or risk of failure.
[2018-08-03] MEDS ORDERED: D5-1/2NS+20 MEQ KCL - 20 MEQ/1,000 ML INFUS.BAG IV SCH (14:00)
--- NOTE | 2018-08-03 14:34 | CON.ID ---
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: CVA (right MCA), Migraine Gastrointestinal: Yes: Other (Gastroparesis) ...LMP: 04/14/13 Musculoskeletal: Yes: Chronic low back pain Endocrine: Yes: Diabetes Mellitus Additional Medical History: dka in the past - Past Surgical History Past Surgical History: Yes: Cholecystectomy - Alcohol/Substance Use Hx Alcohol Use: No History of Substance Use: reports: None - Smoking History Smoking history: Current every day smoker Have you smoked in the past 12 months: Yes Aproximately how many cigarettes per day: 8 - Social History ADL: Independent History of Recent Travel: No Home Medications - Allergies Allergies/Adverse Reactions: Allergies Allergy/AdvReac Type Severity Reaction Status Date / Time No Known Allergies Allergy Verified 06/16/18 22:40 - Home Medications Home Medications: Ambulatory Orders Insulin Detemir [Levemir Flextouch] 25 unit SQ DAILY #3 insuln.pen 06/20/18 Family Disease History - Family Disease History Family Disease History: Heart Disease: Father (cad) Physical Exam Vital Signs: Vital Signs Temperature 97.5 F L 08/03/18 07:40 Pulse Rate 116 H 08/03/18 08:43 Respiratory Rate 36 H 08/03/18 08:43 Blood Pressure 143/72 08/03/18 08:43 O2 Sat by Pulse Oximetry (%) 100 08/03/18 08:43 Labs: CBC, BMP 08/03/18 06:20
[2018-08-03] MEDS: POTASSIUM CHLORIDE 20 MEQ PREMIX IVPB 100 ML IVPB SCH ×2 (14:55→14:56)
[2018-08-03] MEDS ORDERED: INSULIN SLIDING SCALE (NOVOLOG) 1 VIAL SQ SCH (16:30)
[2018-08-03 17:01] LABS: ANION GAP 11 MMOL/L (8-16); BLOOD UREA NITROGEN 32 mg/dL (7-18); CHLORIDE 126 mmol/L (98-107); CO2 16 mmol/L (21-32); CREATININE 1.3 mg/dL (0.55-1.3); GLUCOSE,RANDOM 159 mg/dL (74-106); POTASSIUM 3.5 mmol/L (3.5-5.1); SODIUM 153 mmol/L (136-145)
[2018-08-03] MEDS ORDERED: POTASSIUM CHLORIDE TABS 20 MEQ TABLET.ER (FP) PO ONE (17:38)
[2018-08-03] MEDS ORDERED: INSULIN (LEVEMIR) 100 UNITS/ML UNITS SQ ONE (17:40)
[2018-08-03] MEDS: KCL 10 MEQ IVPB 10 MEQ/100 ML INFUS.BAG IVPB SCH ×3 (17:59→21:18)
[2018-08-03] MEDS ORDERED: HEPARIN NA (PORCINE) 5,000 UNITS/ML 1ML VIAL SQ SCH (18:00)
[2018-08-03 18:01] LABS: ANION GAP 10 MMOL/L (8-16); BLOOD UREA NITROGEN 27 mg/dL (7-18); CALCIUM 7.3 mg/dL (8.5-10.1); CHLORIDE 125 mmol/L (98-107); CO2 17 mmol/L (21-32); CREATININE 1.2 mg/dL (0.55-1.3); GLUCOSE,RANDOM 123 mg/dL (74-106); POTASSIUM 3.5 mmol/L (3.5-5.1); SODIUM 151 mmol/L (136-145)
[2018-08-03] MEDS: MORPHINE SULFATE 2 MG/ML VIAL IVPUSH PRN ×2 (18:08→21:35)
[2018-08-03] MEDS ORDERED: DEXTROSE 50%-WATER 25 GM/50 ML DISP.SYRIN ONE (18:24)
[2018-08-03] MEDS ORDERED: DEXTROSE 50%-WATER - 25 GM/50 ML VIAL IVPUSH PRN (18:31)
[2018-08-03] MEDS ORDERED: KCL 10 MEQ IVPB 10 MEQ/100 ML INFUS.BAG IVPB SCH (18:45)
[2018-08-03] MEDS: DEXTROSE 5%-0.45% SALINE 1,000 ML IV SCH (21:21)
[2018-08-03] MEDS: MUPIROCIN 2% TOPICAL OINTMENT FOR DECOLONIZATION NS SCH (21:22)
[2018-08-03] MEDS: CHLORHEXIDINE GLUCONATE 4% CLEANSER FOR DECOLONIZATION TP SCH (21:22)
[2018-08-03] MEDS: HEPARIN NA (PORCINE) 5,000 UNITS/ML 1ML VIAL SQ SCH (21:22)
[2018-08-03] MEDS: INSULIN SLIDING SCALE (NOVOLOG) 1 VIAL SQ SCH (21:34)
[2018-08-03] MEDS ORDERED: ONDANSETRON 4 MG/2 ML VIAL IVPUSH ONE (21:34)
[2018-08-03] MEDS ORDERED: POLYETHYLENE GLYCOL 3350 119 GM BTL PO ONE (22:08)
[2018-08-03 22:14] LABS: ANION GAP 12 MMOL/L (8-16); BLOOD UREA NITROGEN 23 mg/dL (7-18); CALCIUM 7.1 mg/dL (8.5-10.1); CHLORIDE 122 mmol/L (98-107); CO2 16 mmol/L (21-32); CREATININE 1.1 mg/dL (0.55-1.3); GLUCOSE,RANDOM 195 mg/dL (74-106); POTASSIUM 4.1 mmol/L (3.5-5.1); SODIUM 150 mmol/L (136-145)
[2018-08-04] MEDS: MORPHINE SULFATE 2 MG/ML VIAL IVPUSH PRN ×2 (01:15→21:14)
[2018-08-04] MEDS ORDERED: diphenhydrAMINE HCL 25 MG CAPSULE (FP) PO ONE (06:21)
[2018-08-04 06:27] LABS: BASO % 0.2 % (0-2.0); LYMPH % 15.9 % (8-40); MCH 28.6 pg (25.7-33.7); MCHC 34.5 g/dl (32.0-36.0); MEAN CELL VOLUME 82.9 fl (80-96); MEAN PLT VOLUME 7.6 fl (7.5-11.1); MONO % 2.7 % (3.8-10.2); NEUT % 81.2 % (42.8-82.8); PLATELET COUNT 254 K/MM3 (134-434); RBC 3.49 M/mm3 (3.60-5.2); RDW 17.6 % (11.6-15.6); WHITE BLOOD COUNT 9.1 K/mm3 (4.0-10.0)
[2018-08-04] MEDS: INSULIN SLIDING SCALE (NOVOLOG) 1 VIAL SQ SCH ×4 (06:30→21:12)
[2018-08-04 07:30] LABS: ALBUMIN 2.5 g/dl (3.4-5.0); ALK PHOS 100 U/L (45-117); ANION GAP 7 MMOL/L (8-16); BILIRUBIN,TOTAL 0.2 mg/dL (0.2-1); BLOOD UREA NITROGEN 15 mg/dL (7-18); CHLORIDE 122 mmol/L (98-107); CO2 22 mmol/L (21-32); CREATININE 0.8 mg/dL (0.55-1.3); GLUCOSE,RANDOM 84 mg/dL (74-106); MAGNESIUM 1.9 mg/dL (1.8-2.4); PHOSPHOROUS 1.2 mg/dL (2.5-4.9); POTASSIUM 3.2 mmol/L (3.5-5.1); SGOT/AST 31 U/L (15-37); SGPT/ALT 18 U/L (13-61); SODIUM 152 mmol/L (136-145); TOT PROT 5.1 g/dl (6.4-8.2)
[2018-08-04 07:34] LABS: CALCIUM 6.9 mg/dL (8.5-10.1)
[2018-08-04] MEDS ORDERED: POTASSIUM CHLORIDE TABS 20 MEQ TABLET.ER (FP) PO ONE (07:48)
[2018-08-04] MEDS ORDERED: NAPH,MB-DB/K PH,MBDB POWDER PACKET PO ONE (08:30)
--- NOTE | 2018-08-04 09:11 | CONSULT ---
Consult Consult Specialty:: Endocrinology Referred by:: Dr Burns Reason for Consultation:: DKA - History of Present Illness Chief Complaint: Nausea History of Present Illness: This 48-year-old woman with a history of T1DM with frequent episodes of DKA sec to noncompliance with medication, HTN, CVA, HLD is brought into the ER by her fianc (patient in wheelchair) with c/o nausea/vomiting/lethargy. Pt c/o of chronic nausea for which she saw her GI last month and was advised to see specialist at [facility]. Patient began vomiting approximately 24 hours prior to presentation. Boyfriend had found patient lethargic with vomitus in bed. Just prior to presentation Patient admits to dysuria and frequent urination just prior to onset of nausea and vomiting. No known history of fever/chills, diarrhea, cough. Although patient follows fingerstick monitoring, recent history of levels is unobtainable. Last dose of Basal Insulin was two days prior to admission. 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), Migraine Gastrointestinal: Yes: Other (Gastroparesis) ...LMP: 04/14/13 Musculoskeletal: Yes: Chronic low back pain Endocrine: Yes: Diabetes Mellitus Additional Medical History: dka in the past - Past Surgical History Past Surgical History: Yes: Cholecystectomy - Alcohol/Substance Use Hx Alcohol Use: No History of Substance Use: reports: None - Smoking History Smoking history: Current every day smoker Have you smoked in the past 12 months: Yes Aproximately how many cigarettes per day: 8 - Social History ADL: Independent History of Recent Travel: No Home Medications - Allergies Allergies/Adverse Reactions: Allergies Allergy/AdvReac Type Severity Reaction Status Date / Time No Known Allergies Allergy Verified 06/16/18 22:40 - Home Medications Home Medications: Ambulatory Orders Insulin Detemir [Levemir Flextouch] 25 unit SQ DAILY #3 insuln.pen 06/20/18 Family Disease History - Family Disease History Family Disease History: Heart Disease: Father (cad) Review of Systems - Review of Systems Constitutional: reports: Loss of Appetite, Malaise Eyes: reports: No Symptoms HENT: reports: No Symptoms Neck: reports: No Symptoms Cardiovascular: reports: No Symptoms Gastrointestinal: reports: Nausea Genitourinary: reports: No Symptoms Musculoskeletal: reports: No Symptoms Endocrine: reports: No Symptoms Hematology/Lymphatic: reports: No Symptoms Physical Exam Vital Signs: Vital Signs Temperature 98.7 F 08/04/18 06:00 Pulse Rate 100 H 08/04/18 06:00 Respiratory Rate 18 08/04/18 06:00 Blood Pressure 114/65 08/04/18 06:00 O2 Sat by Pulse Oximetry (%) 100 08/03/18 08:43 Constitutional: Yes: No Distress, Calm Eyes: Yes: Conjunctiva Clear, EOM Intact HENT: Yes: Atraumatic, Normocephalic Neck: Yes: Supple, Trachea Midline Cardiovascular: Yes: Regular Rate and Rhythm Respiratory: Yes: Regular, CTA Bilaterally Gastrointestinal: Yes: Normal Bowel Sounds, Soft Musculoskeletal: Yes: WNL Extremities: Yes: WNL Edema: No Neurological: Yes: Alert, Oriented Labs: CBC, BMP 08/04/18 05:30 08/04/18 05:30 Assessment/Plan AP: T1DM Diabetic Ketoacidosis GIANCARLO HTN Hyperlipidemia h/o CVA IV hydration Levemir 10 units BID NOvolog SS coverage Electrolyte replacement as necessary Discussed need to come to ED whenever she is unable to take Basal Insulin for any reason.
[2018-08-04] MEDS: DEXTROSE 5%-0.45% SALINE 1,000 ML IV SCH (09:16)
[2018-08-04] MEDS ORDERED: SENNOSIDES/DOCUSATE COMBO (SENNA PLUS) TABLET (UD) PO SCH (10:00)
[2018-08-04] MEDS: KCL 10 MEQ IVPB 10 MEQ/100 ML INFUS.BAG IVPB SCH ×3 (10:15→12:54)
[2018-08-04] MEDS: HEPARIN NA (PORCINE) 5,000 UNITS/ML 1ML VIAL SQ SCH ×2 (10:17→21:12)
[2018-08-04] MEDS ORDERED: D5-NS + 20 MEQ KCL - 20 MEQ/1,000 ML INFUS.BAG IV SCH (11:29)
--- NOTE | 2018-08-04 11:48 | PN ---
Physical Exam: SUBJECTIVE: Patient seen and examined this AM in ICU. Complains of 9/10 Crampy abdominal pain that is similar to when she vomits. Patient does not recall when her last BM was. Additionally complains of nausea. Denies any fevers, chills, chest pain, SOB, Vomiting, diarrhea, constipation. OBJECTIVE: Vital Signs Period Temp Pulse Resp BP Sys/Rapp Pulse Ox Last 24 Hr 97.8 F-99.1 F 83-112 18-25 99-145/60-87 95 GENERAL: A&Ox3 NAD HEAD: NCAT EYES: PERRL, EOMI ENT: Moist mucous membranes. NECK: Supple LUNGS: Diminished breath sounds at the bases, No wheezes, no crackles HEART: RRR, normal S1 and S2 without murmur ABDOMEN: Soft, Tender to palpation throughout, not distended, + bowel sounds, no guarding, no rebound EXTREMITIES: No peripheral edema NEUROLOGICAL: Cranial nerves II through XII grossly intact SKIN: Warm, dry Laboratory Last Values WBC 9.1 K/mm3 (4.0-10.0) 08/04/18 05:30 Corrected WBC (auto) Cancelled 08/03/18 05:00 RBC 3.49 M/mm3 (3.60-5.2) L 08/04/18 05:30 Hgb 10.0 GM/dL (10.7-15.3) L 08/04/18 05:30 Hct 29.0 % (32.4-45.2) L 08/04/18 05:30 MCV 82.9 fl (80-96) D 08/04/18 05:30 MCH 28.6 pg (25.7-33.7) 08/04/18 05:30 MCHC 34.5 g/dl (32.0-36.0) 08/04/18 05:30 RDW 17.6 % (11.6-15.6) H 08/04/18 05:30 Plt Count 254 K/MM3 (134-434) D 08/04/18 05:30 MPV 7.6 fl (7.5-11.1) D 08/04/18 05:30 Absolute Neuts (auto) 7.4 K/mm3 (1.5-8.0) 08/04/18 05:30 Absolute Lymphs (auto) Cancelled 08/03/18 05:00 Absolute Monos (auto) Cancelled 08/03/18 05:00 Absolute Eos (auto) Cancelled 08/03/18 05:00 Absolute Basos (auto) Cancelled 08/03/18 05:00 Add Manual Diff Cancelled 08/03/18 05:00 Neutrophils % 81.2 % (42.8-82.8) 08/04/18 05:30 Neutrophils % (Manual) 86.3 % (42.8-82.8) H 08/03/18 06:20 Band Neutrophils % 0.0 % 08/03/18 06:20 Lymphocytes % 15.9 % (8-40) D 08/04/18 05:30 Lymphocytes % (Manual) 8.8 % (8-40) D 08/03/18 06:20 Monocytes % 2.7 % (3.8-10.2) L 08/04/18 05:30 Monocytes % (Manual) 5 % (3.8-10.2) 08/03/18 06:20 Eosinophils % 0.0 % (0-4.5) D 08/04/18 05:30 Eosinophils % (Manual) 0.0 % (0-4.5) 08/03/18 06:20 Basophils % 0.2 % (0-2.0) 08/04/18 05:30 Basophils % (Manual) 0.0 % (0-2.0) 08/03/18 06:20 Myelocytes % (Man) 0 % (0-2) 08/03/18 06:20 Promyelocytes % (Man) 0 % (0-2) 08/03/18 06:20 Blast Cells % (Manual) 0 % (0-0) 08/03/18 06:20 Nucleated RBC % 0 % (0-0) 08/04/18 05:30 Metamyelocytes 0 % (0-2) D 08/03/18 06:20 Hypochromia 0 08/03/18 06:20 Platelet Estimate Normal 08/03/18 06:20 Platelet Comment Cancelled 08/03/18 05:00 Normal RBC Morphology Cancelled 08/03/18 05:00 Polychromasia 1+ 08/03/18 06:20 Poikilocytosis 2+ 08/03/18 06:20 Anisocytosis 1+ 08/03/18 06:20 Macrocytosis 1+ 08/03/18 06:20 [place] Cells 2+ 08/03/18 06:20 PT with INR 11.60 SEC (9.7-13.0) 08/03/18 05:00 INR 0.98 (0.83-1.09) 08/03/18 05:00 Puncture Site Right brachial 08/03/18 12:45 ABG pH 7.33 (7.35-7.45) L 08/03/18 12:45 ABG pCO2 at Pt Temp 20.7 mmHg (35-45) L D 08/03/18 12:45 ABG pO2 at Pt Temp 135.0 mmHg (80-100) H 08/03/18 12:45 ABG HCO3 10.5 meq/L (22-26) L* 08/03/18 12:45 ABG O2 Sat (Measured) 99.1 % (90-98.9) H 08/03/18 12:45 ABG O2 Content 12.7 % vol (15-22) L 08/03/18 12:45 ABG Base Excess -14.0 meq/l (-2-2) L* 08/03/18 12:45 Atul Test Positive 08/03/18 12:45 O2 Delivery Device Room air 08/03/18 12:45 Oxygen Flow Rate 21% 08/03/18 12:45 Sodium 152 mmol/L (136-145) H 08/04/18 05:30 Potassium 3.2 mmol/L (3.5-5.1) L 08/04/18 05:30 Chloride 122 mmol/L (98-107) H 08/04/18 05:30 Carbon Dioxide 22 mmol/L (21-32) 08/04/18 05:30 Anion Gap 7 MMOL/L (8-16) L 08/04/18 05:30 BUN 15 mg/dL (7-18) 08/04/18 05:30 Creatinine 0.8 mg/dL (0.55-1.3) 08/04/18 05:30 Creat Clearance w eGFR > 60 (>60) 08/04/18 05:30 POC Glucometer 90.10237 UNITS (80-120) 08/04/18 05:19 Random Glucose 84 mg/dL (74-106) 08/04/18 05:30 Lactic Acid 4.9 mmol/L (0.4-2.0) H* 08/03/18 05:00 Calcium 6.9 mg/dL (8.5-10.1) L* 08/04/18 05:30 Phosphorus 1.2 mg/dL (2.5-4.9) L 08/04/18 05:30 Magnesium 1.9 mg/dL (1.8-2.4) 08/04/18 05:30 Total Bilirubin 0.2 mg/dL (0.2-1) 08/04/18 05:30 AST 31 U/L (15-37) 08/04/18 05:30 ALT 18 U/L (13-61) 08/04/18 05:30 Alkaline Phosphatase 100 U/L (45-117) 08/04/18 05:30 Creatine Kinase 101 U/L (26-192) 08/03/18 05:21 Troponin I < 0.02 ng/ml (0.00-0.05) 08/03/18 05:21 Total Protein 5.1 g/dl (6.4-8.2) L 08/04/18 05:30 Albumin 2.5 g/dl (3.4-5.0) L 08/04/18 05:30 Vitamin B12 1108 pg/ml (193-986) H 08/04/18 05:30 Serum Folate 16 ng/mL (3.1-17.5) 08/04/18 05:30 Urine Color Ltyellow 08/03/18 05:21 Urine Appearance Slcloudy 08/03/18 05:21 Urine pH 5.0 (5.0-8.0) 08/03/18 05:21 Ur Specific [place] 1.022 (1.010-1.035) 08/03/18 05:21 Urine Protein 1+ (NEGATIVE) H 08/03/18 05:21 Urine Glucose (UA) 3+ (NEGATIVE) H 08/03/18 05:21 Urine Ketones 2+ (NEGATIVE) H 08/03/18 05:21 Urine Blood 1+ (NEGATIVE) H 08/03/18 05:21 Urine Nitrite Negative (NEGATIVE) 08/03/18 05:21 Urine Bilirubin Negative (<2.0 mg/dL) 08/03/18 05:21 Urine Urobilinogen Negative mg/dL (0.2-1.0) 08/03/18 05:21 Ur Leukocyte Esterase Negative (NEGATIVE) 08/03/18 05:21 Urine WBC (Auto) <1 /hpf (3-5) 08/03/18 05:21 Urine RBC (Auto) <1 /hpf (0-3) 08/03/18 05:21 Ur Epithelial Cells Rare /HPF (FEW) 08/03/18 05:21 Hyaline Casts 30 /lpf 08/03/18 05:21 Urine Mucus Rare 08/03/18 05:21 Urine HCG, Qual Negative 08/03/18 05:00 Acetone, Qual Positive large 3+ (NEGATIVE) H 08/03/18 05:21 Microbiology 08/03/18 05:21 Urine - Urine - Catheterized Urine Culture - Final NO GROWTH OBTAINED 08/03/18 05:30 Blood - Peripheral Venous Blood Culture - Preliminary NO GROWTH OBTAINED AFTER 24 HOURS, INCUBATION TO CONTINUE FOR 4 DAYS. 08/03/18 05:30 Blood - Peripheral Venous Blood Culture - Preliminary NO GROWTH OBTAINED AFTER 24 HOURS, INCUBATION TO CONTINUE FOR 4 DAYS. Active Medications Chlorhexidine Gluconate (Hibiclens For Decolonization -) 1 applic TP HS [facility] Last Admin: 08/03/18 21:22 Dose: 1 applic Docusate Sodium (Colace -) 100 mg PO TID [facility] Heparin Sodium (Porcine) (Heparin -) 5,000 unit SQ BID [facility] Last Admin: 08/04/18 10:17 Dose: 5,000 unit Potassium Chloride 20 meq/ (Dextrose/Sodium Chloride) 1,000 mls @ 100 mls/hr IVPB ASDIR [facility] Insulin Aspart (Novolog Vial Sliding Scale -) 1 vial SQ ACHS [facility]; Protocol Last Admin: 08/04/18 06:30 Dose: Not Given Morphine Sulfate (Morphine Sulfate) 2 mg IVPUSH Q3H PRN PRN Reason: PAIN LEVEL 6-10 Last Admin: 08/04/18 01:15 Dose: 2 mg Mupirocin (Bactroban Ointment (For Decolonization) -) 1 applic NS BID [facility] Stop: 08/08/18 21:59 Last Admin: 08/03/18 21:22 Dose: 1 applic Senna/Docusate Sodium (Pericolace -) 1 tablet PO DAILY [facility] Last Admin: 08/04/18 10:13 Dose: 1 tablet ASSESSMENT/PLAN: 48 y/o F with PMHx of HTN, CVA (left sided hemiparesis), HLD, IDDM, DKA, Dysphagia, Gastroparesis, esophageal stricture (EGD 02/14) was found to be in DKA and will be further monitored in ICU. #Neuro Hx of CVA (left sided hemiparesis) -A&Ox3, NAD -No active issues, continue to monitor #Cardio Tachycardia, Tachypnea, Improving Hx of HTN, HLD -Trop < 0.02 -S/P 6L NS -Hold Anti-HTN, Continue to monitor for hypotension #Pulmonary -CXR: No acute chest pathology -No active issues, continue to monitor #GI Crampy Abdominal Pain Nausea Hx of Dysphagia, Gastroparesis, esophageal stricture (EGD 02/14) -Anti-Emetics PRN -Continue Senna, Docusate #Renal GIANCARLO Hyperkalemia, Resolved Hypernatremia Hypophosphatemia -Likely prerenal due to hypovolemia -S/P Kcl x 40 mEq -Continue D5-1/2NS + 20 mEq KCl @ 100 mls/hr -Monitor Urine Output, Cr -Lytes Repleted #Heme Normocytic, Normochronic Anemia -No signs of active bleeding -Continue to monitor #Endo DKA, Rsolved Lactic acidosis, Likely due to DKA Hx of IDDM, Multiple DKA Episodes -AG 32-->7 this AM -Continue D5-1/2NS + 20 mEq KCl @ 100 mls/hr -Pain Control via Morphine 2mg Q3H PRN -BGMs ISS ACHS -Dr. Luis Consulted #ID Leukocytosis, Likely reactive -Remains Afebrile -Blood and Urince Cx pending -Received Zosyn x1; Will monitor off Abx for now -Dr. Pimentel consulted #FEN -D5-1/2NS + 20 mEq KCl @ 100 mls/hr -Replete Lytes PRN -Diabetic Diet #PPx -DVT: Heparin TID Code Status: Full Code Dispo: Transfer to med-surg Visit type - Emergency Visit Emergency Visit: Yes ED Registration Date: 08/03/18 Care time: The patient presented to the Emergency Department on the above date and was hospitalized for further evaluation of their emergent condition. - New Patient This patient is new to me today: No - Critical Care Critical Care patient: Yes Total Critical Care Time (in minutes): 36 Critical Care Statement: The care of this patient involved high complexity decision making to prevent further life threatening deterioration of the patient 's condition and/or to evaluate & treat vital organ system(s) failure or risk of failure.
[2018-08-04] MEDS: MUPIROCIN 2% TOPICAL OINTMENT FOR DECOLONIZATION NS SCH ×2 (12:00→21:04)
--- NOTE | 2018-08-04 12:28 | PN ---
Teaching Attending Note Name of Resident: Maude Gomez ATTENDING PHYSICIAN STATEMENT I saw and evaluated the patient. I reviewed the resident's note and discussed the case with the resident. I agree with the resident's findings and plan as documented. SUBJECTIVE: Pt seen and examined in the ICU. Anion gap closed, off insulin gtt. Still with abdominal discomfort and nausea. OBJECTIVE: Vital Signs Period Temp Pulse Resp BP Sys/Rapp Pulse Ox Last 24 Hr 97.8 F-99.1 F 83-112 18-25 99-145/62-87 95 Intake & Output 08/01/18 08/02/18 08/03/18 08/04/18 23:59 23:59 23:59 23:59 Intake Total 5000 1500 Output Total 2400 Balance 2600 1500 Weight 62.9 kg 61.802 kg Gen: NAD at rest Heart: RRR Lung: decreased breath sounds at the bases Abd: soft, mild diffuse tenderness, no rebound Ext: no edema CBC, BMP 08/04/18 05:30 08/04/18 05:30 Active Medications Chlorhexidine Gluconate (Hibiclens For Decolonization -) 1 applic TP HS [facility] Last Admin: 08/03/18 21:22 Dose: 1 applic Docusate Sodium (Colace -) 100 mg PO TID [facility] Heparin Sodium (Porcine) (Heparin -) 5,000 unit SQ BID [facility] Last Admin: 08/04/18 10:17 Dose: 5,000 unit Potassium Chloride/Sodium Chloride (1/2ns+20meq Kcl) 20 meq in 1,000 mls @ 100 mls/hr IV ASDIR [facility] Insulin Aspart (Novolog Vial Sliding Scale -) 1 vial SQ ACHS [facility]; Protocol Last Admin: 08/04/18 12:11 Dose: 4 units Morphine Sulfate (Morphine Sulfate) 2 mg IVPUSH Q3H PRN PRN Reason: PAIN LEVEL 6-10 Last Admin: 08/04/18 01:15 Dose: 2 mg Mupirocin (Bactroban Ointment (For Decolonization) -) 1 applic NS BID [facility] Stop: 08/08/18 21:59 Last Admin: 08/03/18 21:22 Dose: 1 applic Senna/Docusate Sodium (Pericolace -) 1 tablet PO DAILY [facility] Last Admin: 08/04/18 10:13 Dose: 1 tablet ASSESSMENT AND PLAN: Diabetic Ketoacidosis resolving Severe Metabolic Acidosis Acute Kidney Injury HTN Hyperlipidemia h/o CVA Noncompliance - hypotonic saline - replete lytes - continue levemir - monitor urine output, creatinine - O2 to keep SpO2 >90% - antiemetics - PO as tolerated - DVT prophylaxis - can monitor on floor
[2018-08-04] MEDS ORDERED: SODIUM CHLORIDE 0.45%/POT 20 MEQ/1,000 ML INFUS.BAG IV SCH (12:30)
[2018-08-04] MEDS ORDERED: INSULIN (LEVEMIR) 100 UNITS/ML UNITS SQ ONE ×2 (12:59→13:01)
--- NOTE | 2018-08-04 14:11 | PN ---
Progress Note, Physician History of Present Illness: patient stable but c/o of severe abd pain - Current Medication List Current Medications: Active Medications Chlorhexidine Gluconate (Hibiclens For Decolonization -) 1 applic TP HS [facility] Last Admin: 08/03/18 21:22 Dose: 1 applic Docusate Sodium (Colace -) 100 mg PO TID [facility] Heparin Sodium (Porcine) (Heparin -) 5,000 unit SQ BID [facility] Last Admin: 08/04/18 10:17 Dose: 5,000 unit Potassium Chloride/Sodium Chloride (1/2ns+20meq Kcl) 20 meq in 1,000 mls @ 100 mls/hr IV ASDIR [facility] Last Admin: 08/04/18 12:28 Dose: 100 mls/hr Insulin Aspart (Novolog Vial Sliding Scale -) 1 vial SQ ACHS [facility]; Protocol Last Admin: 08/04/18 12:11 Dose: 4 units Insulin Detemir (Levemir Vial) 10 units SQ BID@0700,2200 [facility] Morphine Sulfate (Morphine Sulfate) 2 mg IVPUSH Q3H PRN PRN Reason: PAIN LEVEL 6-10 Last Admin: 08/04/18 01:15 Dose: 2 mg Mupirocin (Bactroban Ointment (For Decolonization) -) 1 applic NS BID [facility] Stop: 08/08/18 21:59 Last Admin: 08/03/18 21:22 Dose: 1 applic Senna/Docusate Sodium (Pericolace -) 1 tablet PO DAILY [facility] Last Admin: 08/04/18 10:13 Dose: 1 tablet - Objective Vital Signs: Vital Signs Temperature 99.1 F 08/04/18 10:00 Pulse Rate 84 08/04/18 12:00 Respiratory Rate 20 08/04/18 12:00 Blood Pressure 120/70 08/04/18 12:00 O2 Sat by Pulse Oximetry (%) 95 08/04/18 09:00 Constitutional: Yes: Calm, Moderate Distress Eyes: Yes: Conjunctiva Clear HENT: Yes: Atraumatic, Normocephalic Cardiovascular: Yes: Regular Rate and Rhythm Respiratory: Yes: Regular, CTA Bilaterally Gastrointestinal: Yes: Soft Musculoskeletal: Yes: WNL Extremities: Yes: WNL Neurological: Yes: Alert, Oriented Psychiatric: Yes: Alert, Oriented Labs: CBC, BMP 08/04/18 05:30 08/04/18 05:30 INR, PTT INR 0.98 (0.83-1.09) 08/03/18 05:00 Assessment/Plan Diabetic Ketoacidosis Severe Metabolic Acidosis Acute Kidney Injury HTN Hyperlipidemia h/o CVA Noncompliance plan continue fluids wbc has normalized abd pain mgmt rest as per icu monitor sugars cc 38 time
[2018-08-04] MEDS: ACETAMINOPHEN 325 MG TABLET (FP) PO PRN ×2 (14:20→19:51)
[2018-08-04] MEDS: DOCUSATE SODIUM 100 MG CAPSULE (FP) PO SCH ×2 (14:20→22:54)
--- NOTE | 2018-08-04 15:10 | EKG ---
Test Reason : Blood Pressure : / mmHG Vent. Rate : 116 BPM Atrial Rate : 116 BPM P-R Int : 130 ms QRS Dur : 090 ms QT Int : 354 ms P-R-T Axes : 079 080 006 degrees QTc Int : 492 ms POOR DATA QUALITY, INTERPRETATION MAY BE ADVERSELY AFFECTED SINUS TACHYCARDIA T WAVE ABNORMALITY, CONSIDER INFERIOR ISCHEMIA ABNORMAL ECG Confirmed by Baljeet Steven MD ([id number]) on 08/04/2018 3:10:09 PM Referred By: BRAYAN GARCIA Confirmed By:Baljeet Steven MD
--- NOTE | 2018-08-04 17:01 | PN ---
Progress Note, Physician History of Present Illness: feeling better - Current Medication List Current Medications: Active Medications Acetaminophen (Tylenol -) 650 mg PO Q6H PRN PRN Reason: PAIN 1-3 Last Admin: 08/04/18 14:20 Dose: 650 mg Chlorhexidine Gluconate (Hibiclens For Decolonization -) 1 applic TP HS [facility] Last Admin: 08/03/18 21:22 Dose: 1 applic Docusate Sodium (Colace -) 100 mg PO TID [facility] Last Admin: 08/04/18 14:20 Dose: 100 mg Heparin Sodium (Porcine) (Heparin -) 5,000 unit SQ BID [facility] Last Admin: 08/04/18 10:17 Dose: 5,000 unit Potassium Chloride/Sodium Chloride (1/2ns+20meq Kcl) 20 meq in 1,000 mls @ 100 mls/hr IV ASDIR [facility] Last Admin: 08/04/18 12:28 Dose: 100 mls/hr Insulin Aspart (Novolog Vial Sliding Scale -) 1 vial SQ ACHS [facility]; Protocol Last Admin: 08/04/18 12:11 Dose: 4 units Insulin Detemir (Levemir Vial) 10 units SQ BID@0700,2200 [facility] Morphine Sulfate (Morphine Sulfate) 2 mg IVPUSH Q3H PRN PRN Reason: PAIN LEVEL 6-10 Last Admin: 08/04/18 01:15 Dose: 2 mg Mupirocin (Bactroban Ointment (For Decolonization) -) 1 applic NS BID [facility] Stop: 08/08/18 21:59 Last Admin: 08/04/18 12:00 Dose: 1 applic Senna/Docusate Sodium (Pericolace -) 1 tablet PO DAILY [facility] Last Admin: 08/04/18 10:13 Dose: 1 tablet - Objective Vital Signs: Vital Signs Temperature 99.1 F 08/04/18 15:45 Pulse Rate 93 H 08/04/18 15:45 Respiratory Rate 18 08/04/18 15:45 Blood Pressure 104/54 L 08/04/18 15:45 O2 Sat by Pulse Oximetry (%) 95 08/04/18 09:00 Constitutional: Yes: No Distress HENT: Yes: Atraumatic Neck: Yes: Supple Cardiovascular: Yes: Regular Rate and Rhythm Respiratory: Yes: CTA Bilaterally Gastrointestinal: Yes: Normal Bowel Sounds Extremities: Yes: WNL Edema: No Neurological: Yes: Alert, Oriented Labs: CBC, BMP 08/04/18 05:30 08/04/18 05:30 INR, PTT INR 0.98 (0.83-1.09) 08/03/18 05:00 Problem List - Problems (1) Ketoacidosis in type I diabetes mellitus Assessment/Plan: on insulin iv hydration monitor bgms endo consult Code(s): E10.10 - TYPE 1 DIABETES MELLITUS WITH KETOACIDOSIS WITHOUT COMA (2) Hypophosphatemia Assessment/Plan: replace Code(s): E83.39 - OTHER DISORDERS OF PHOSPHORUS METABOLISM (3) Hypokalemia Assessment/Plan: replace Code(s): E87.6 - HYPOKALEMIA
[2018-08-04] MEDS: PANTOPRAZOLE 40 MG TABLET (FP) PO SCH (19:51)
[2018-08-04] MEDS ORDERED: INSULIN (NOVOLOG) ASPART 100 UNITS/ML 10ML VIAL ONE (20:52)
[2018-08-04] MEDS: CHLORHEXIDINE GLUCONATE 4% CLEANSER FOR DECOLONIZATION TP SCH (21:05)
[2018-08-04] MEDS: INSULIN (LEVEMIR) 100 UNITS/ML UNITS SQ SCH (21:12)
[2018-08-04] MEDS ORDERED: INSULIN (LEVEMIR) 100 UNITS/ML UNITS SQ SCH (22:00)
[2018-08-05] MEDS: MORPHINE SULFATE 2 MG/ML VIAL IVPUSH PRN ×5 (01:10→23:33)
[2018-08-05] MEDS: DOCUSATE SODIUM 100 MG CAPSULE (FP) PO SCH ×3 (05:54→22:28)
[2018-08-05] MEDS: INSULIN (LEVEMIR) 100 UNITS/ML UNITS SQ SCH (06:06)
[2018-08-05] MEDS: INSULIN SLIDING SCALE (NOVOLOG) 1 VIAL SQ SCH ×4 (06:07→22:28)
[2018-08-05] MEDS ORDERED: DEXTROSE 50%-WATER - 25 GM/50 ML VIAL IVPUSH ONE (06:20)
[2018-08-05] MEDS ORDERED: DEXTROSE 50%-WATER 25 GM/50 ML DISP.SYRIN ONE (06:21)
[2018-08-05 08:20] LABS: BASO % 0.4 % (0-2.0); EOS % 0.9 % (0-4.5); HEMATOCRIT 27.3 % (32.4-45.2); HEMOGLOBIN 9.3 GM/dL (10.7-15.3); LYMPH % 24.2 % (8-40); MCH 28.7 pg (25.7-33.7); MCHC 34.2 g/dl (32.0-36.0); MEAN CELL VOLUME 83.7 fl (80-96); MEAN PLT VOLUME 7.8 fl (7.5-11.1); MONO % 3.2 % (3.8-10.2); NEUT % 71.3 % (42.8-82.8); PLATELET COUNT 200 K/MM3 (134-434); RBC 3.26 M/mm3 (3.60-5.2); RDW 17.8 % (11.6-15.6); WHITE BLOOD COUNT 8.3 K/mm3 (4.0-10.0)
--- NOTE | 2018-08-05 08:51 | PN ---
Progress Note (short form) - Note Progress Note: Poor apetite BGM 50s in the morning Vital Signs Period Temp Pulse Resp BP Sys/Rapp Pulse Ox Last 24 Hr 98.0 F-99.4 F 82-98 18-21 104-131/54-90 95-95 PE: AOx3 Neck: supple, No JVD HHENT: PERRL, EOMI Lungs: CTA CVS: S1S2 Abd: Benign Ext: No edema, Rt wrist swelling Neuro: No focal deficit CMP Sodium 152 mmol/L (136-145) H 08/04/18 05:30 Potassium 3.2 mmol/L (3.5-5.1) L 08/04/18 05:30 Chloride 122 mmol/L (98-107) H 08/04/18 05:30 Carbon Dioxide 22 mmol/L (21-32) 08/04/18 05:30 Anion Gap 7 MMOL/L (8-16) L 08/04/18 05:30 BUN 15 mg/dL (7-18) 08/04/18 05:30 Creatinine 0.8 mg/dL (0.55-1.3) 08/04/18 05:30 Creat Clearance w eGFR > 60 (>60) 08/04/18 05:30 POC Glucometer 160 UNITS (80-120) 08/05/18 06:55 Random Glucose 84 mg/dL (74-106) 08/04/18 05:30 Lactic Acid 4.9 mmol/L (0.4-2.0) H* 08/03/18 05:00 Calcium 6.9 mg/dL (8.5-10.1) L* 08/04/18 05:30 Phosphorus 1.2 mg/dL (2.5-4.9) L 08/04/18 05:30 Magnesium 1.9 mg/dL (1.8-2.4) 08/04/18 05:30 Total Bilirubin 0.2 mg/dL (0.2-1) 08/04/18 05:30 AST 31 U/L (15-37) 08/04/18 05:30 ALT 18 U/L (13-61) 08/04/18 05:30 Alkaline Phosphatase 100 U/L (45-117) 08/04/18 05:30 Creatine Kinase 101 U/L (26-192) 08/03/18 05:21 Troponin I < 0.02 ng/ml (0.00-0.05) 08/03/18 05:21 Total Protein 5.1 g/dl (6.4-8.2) L 08/04/18 05:30 Albumin 2.5 g/dl (3.4-5.0) L 08/04/18 05:30 Vitamin B12 1108 pg/ml (193-986) H 08/04/18 05:30 Serum Folate 16 ng/mL (3.1-17.5) 08/04/18 05:30 Current Medications Generic Name Dose Route Start Last Admin Trade Name Freq PRN Reason Stop Dose Admin Acetaminophen 650 mg 08/04/18 14:10 08/04/18 19:51 Tylenol - PO 650 mg Q6H PRN Administration PAIN 1-3 Docusate Sodium 100 mg 08/05/18 14:00 Colace - PO TID [facility] Heparin Sodium (Porcine) 5,000 unit 08/05/18 10:00 Heparin - SQ BID [facility] Potassium Chloride/Sodium Chloride 20 meq in 1,000 mls @ 100 mls/hr 08/04/18 12:30 08/04/18 12:28 1/2ns+20meq Kcl IV 100 mls/hr ASDIR [facility] Administration Insulin Aspart 1 vial 08/05/18 11:00 Novolog Vial Sliding Scale - SQ ACHS [facility] Protocol Insulin Detemir 8 units 08/04/18 22:00 08/05/18 06:06 Levemir Vial SQ 8 units BID@0700,2200 [facility] Administration Morphine Sulfate 2 mg 08/05/18 07:20 Morphine Sulfate IVPUSH Q3H PRN PAIN LEVEL 6-10 Pantoprazole Sodium 40 mg 08/04/18 19:00 08/04/18 19:51 Protonix - PO 40 mg DAILY [facility] Administration Senna/Docusate Sodium 1 tablet 08/05/18 10:00 Pericolace - PO DAILY [facility] AP: T1DM Diabetic Ketoacidosis Gastroparesis: To f/u with GI at [facility]. GIANCARLO: resolved HTN Hyperlipidemia h/o CVA IV hydration Decrease Levemir 6 units BID, Change NOvolog SS coverage Electrolyte replacement as necessary KCl 25einc8 now CMP in AM Discussed need to come to ED whenever she is unable to take Basal Insulin for any reason.
[2018-08-05] MEDS ORDERED: INSULIN (LEVEMIR) 100 UNITS/ML UNITS SQ SCH (08:53)
[2018-08-05 09:53] LABS: ALK PHOS 123 U/L (45-117); ANION GAP 8 MMOL/L (8-16); BILIRUBIN,TOTAL 0.3 mg/dL (0.2-1); BLOOD UREA NITROGEN 6 mg/dL (7-18); CALCIUM 7.1 mg/dL (8.5-10.1); CHLORIDE 117 mmol/L (98-107); CO2 21 mmol/L (21-32); CREATININE 0.6 mg/dL (0.55-1.3); GLUCOSE,RANDOM 123 mg/dL (74-106); POTASSIUM 3.2 mmol/L (3.5-5.1); SGOT/AST 25 U/L (15-37); SGPT/ALT 15 U/L (13-61); SODIUM 146 mmol/L (136-145); TOT PROT 4.6 g/dl (6.4-8.2)
[2018-08-05] MEDS ORDERED: SENNOSIDES/DOCUSATE COMBO (SENNA PLUS) TABLET (UD) PO SCH (10:00)
[2018-08-05] MEDS ORDERED: MUPIROCIN 2% TOPICAL OINTMENT FOR DECOLONIZATION NS SCH (10:00)
[2018-08-05] MEDS: PANTOPRAZOLE 40 MG TABLET (FP) PO SCH (10:04)
[2018-08-05] MEDS: HEPARIN NA (PORCINE) 5,000 UNITS/ML 1ML VIAL SQ SCH ×2 (10:04→22:28)
[2018-08-05] MEDS: POLYETHYLENE GLYCOL 3350 119 GM BTL PO SCH ×2 (10:30→22:29)
[2018-08-05] MEDS ORDERED: POTASSIUM CHLORIDE TABS 20 MEQ TABLET.ER (FP) PO ONE (10:45)
[2018-08-05] MEDS ORDERED: INSULIN SLIDING SCALE (NOVOLOG) 1 VIAL SQ SCH (11:00)
--- NOTE | 2018-08-05 12:51 | PN ---
Progress Note, Physician History of Present Illness: no new issues abd pain - Current Medication List Current Medications: Active Medications Acetaminophen (Tylenol -) 650 mg PO Q6H PRN PRN Reason: PAIN 1-3 Last Admin: 08/04/18 19:51 Dose: 650 mg Docusate Sodium (Colace -) 100 mg PO TID [facility] Heparin Sodium (Porcine) (Heparin -) 5,000 unit SQ BID [facility] Last Admin: 08/05/18 10:04 Dose: 5,000 unit Potassium Chloride/Sodium Chloride (1/2ns+20meq Kcl) 20 meq in 1,000 mls @ 100 mls/hr IV ASDIR [facility] Last Admin: 08/04/18 12:28 Dose: 100 mls/hr Insulin Aspart (Novolog Vial Sliding Scale -) 1 vial SQ TIDAC [facility]; Protocol Last Admin: 08/05/18 11:07 Dose: Not Given Insulin Aspart (Novolog Vial Sliding Scale -) 1 vial SQ HS [facility]; Protocol Insulin Detemir (Levemir Vial) 6 units SQ BID@0700,2200 [facility] Morphine Sulfate (Morphine Sulfate) 2 mg IVPUSH Q3H PRN PRN Reason: PAIN LEVEL 6-10 Last Admin: 08/05/18 09:14 Dose: 2 mg Pantoprazole Sodium (Protonix -) 40 mg PO DAILY [facility] Last Admin: 08/05/18 10:04 Dose: 40 mg Polyethylene Glycol (Miralax (For Daily Use) -) 17 gm PO BID [facility] Last Admin: 08/05/18 10:30 Dose: 17 gm Senna/Docusate Sodium (Pericolace -) 1 tablet PO DAILY [facility] Last Admin: 08/05/18 10:04 Dose: 1 tablet - Objective Vital Signs: Vital Signs Temperature 98.9 F 08/05/18 08:59 Pulse Rate 87 08/05/18 08:59 Respiratory Rate 20 08/05/18 08:59 Blood Pressure 102/62 08/05/18 08:59 O2 Sat by Pulse Oximetry (%) 96 08/05/18 09:00 Constitutional: Yes: Calm, Mild Distress Cardiovascular: Yes: Regular Rate and Rhythm Respiratory: Yes: Regular, CTA Bilaterally Gastrointestinal: Yes: Normal Bowel Sounds, Soft Musculoskeletal: Yes: WNL Extremities: Yes: WNL Neurological: Yes: Alert, Oriented Labs: CBC, BMP 08/05/18 07:00 08/05/18 07:00 INR, PTT INR 0.98 (0.83-1.09) 08/03/18 05:00 Assessment/Plan Diabetic Ketoacidosis Severe Metabolic Acidosis Acute Kidney Injury HTN Hyperlipidemia h/o CVA Noncompliance abd pain plan continue current mgmt hydration rest as per the team
[2018-08-05 12:55] LABS: PHOSPHOROUS 0.8 mg/dL (2.5-4.9)
[2018-08-05] MEDS ORDERED: POTASSIUM PHOSPHATE 15 MM in DEXTROSE 5%-WATER - 250 ML IVPB ONE (15:30)
[2018-08-05] MEDS ORDERED: INSULIN (NOVOLOG) ASPART 100 UNITS/ML 10ML VIAL ONE (16:39)
[2018-08-05] MEDS ORDERED: NAPH,MB-DB/K PH,MBDB POWDER PACKET PO SCH (18:15)
--- NOTE | 2018-08-05 18:21 | PN ---
Progress Note, Physician History of Present Illness: c/o abdominal pain - Current Medication List Current Medications: Active Medications Acetaminophen (Tylenol -) 650 mg PO Q6H PRN PRN Reason: PAIN 1-3 Last Admin: 08/04/18 19:51 Dose: 650 mg Docusate Sodium (Colace -) 100 mg PO TID [facility] Last Admin: 08/05/18 13:22 Dose: 100 mg Heparin Sodium (Porcine) (Heparin -) 5,000 unit SQ BID [facility] Last Admin: 08/05/18 10:04 Dose: 5,000 unit Potassium Chloride/Sodium Chloride (1/2ns+20meq Kcl) 20 meq in 1,000 mls @ 100 mls/hr IV ASDIR [facility] Last Admin: 08/04/18 12:28 Dose: 100 mls/hr Potassium Phosphate 15 mm/ (Dextrose) 255 mls @ 62.5 mls/hr IVPB ONCE ONE Stop: 08/05/18 19:34 Last Admin: 08/05/18 17:58 Dose: 62.5 mls/hr Insulin Aspart (Novolog Vial Sliding Scale -) 1 vial SQ TIDAC [facility]; Protocol Last Admin: 08/05/18 16:42 Dose: 5 units Insulin Aspart (Novolog Vial Sliding Scale -) 1 vial SQ HS [facility]; Protocol Insulin Detemir (Levemir Vial) 6 units SQ BID@0700,2200 [facility] Pantoprazole Sodium (Protonix -) 40 mg PO DAILY [facility] Last Admin: 08/05/18 10:04 Dose: 40 mg Polyethylene Glycol (Miralax (For Daily Use) -) 17 gm PO BID [facility] Last Admin: 08/05/18 10:30 Dose: 17 gm Potassium Phos/Sodium Phos (Phos-Nak Packet -) 1 packet PO DAILY [facility] Senna/Docusate Sodium (Pericolace -) 1 tablet PO DAILY [facility] Last Admin: 08/05/18 10:04 Dose: 1 tablet - Objective Vital Signs: Vital Signs Temperature 98.0 F 08/05/18 14:13 Pulse Rate 86 08/05/18 14:13 Respiratory Rate 20 08/05/18 08:59 Blood Pressure 104/64 08/05/18 14:13 O2 Sat by Pulse Oximetry (%) 96 08/05/18 09:00 Constitutional: Yes: Anxious HENT: Yes: Atraumatic Neck: Yes: Supple Cardiovascular: Yes: Regular Rate and Rhythm Respiratory: Yes: CTA Bilaterally Gastrointestinal: Yes: Normal Bowel Sounds, Tenderness (in mid abdome...mild to moderate) Extremities: Yes: WNL Edema: No Peripheral Pulses WNL: Yes Neurological: Yes: Alert, Oriented Labs: CBC, BMP 08/05/18 07:00 08/05/18 07:00 INR, PTT INR 0.98 (0.83-1.09) 08/03/18 05:00 Problem List - Problems (1) Ketoacidosis in type I diabetes mellitus Assessment/Plan: on insulin, check bgms iv hydration monitor bgms endo consult Code(s): E10.10 - TYPE 1 DIABETES MELLITUS WITH KETOACIDOSIS WITHOUT COMA (2) Hypophosphatemia Assessment/Plan: replace Code(s): E83.39 - OTHER DISORDERS OF PHOSPHORUS METABOLISM (3) Hypokalemia Assessment/Plan: replace Code(s): E87.6 - HYPOKALEMIA (4) Abdominal pain Assessment/Plan: will get ct abdomen stool softener as pt has been constipated Code(s): R10.9 - UNSPECIFIED ABDOMINAL PAIN Assessment/Plan send patient for ct abdomen and pelvis as she was c/o abdominal pain d/w radiology the findings iischemic colitis vs enteritis d/w surgeon dr worthington...[phone] he will look at the films will make patient npo ivf iv morphine for pain
[2018-08-05] MEDS ORDERED: CHLORHEXIDINE GLUCONATE 4% CLEANSER FOR DECOLONIZATION TP SCH (22:00)
[2018-08-05] MEDS: ACETAMINOPHEN 325 MG TABLET (FP) PO PRN (22:32)
[2018-08-05] MEDS ORDERED: SODIUM CHLORIDE 1,000 ML IV SCH (23:00)
[2018-08-05] MEDS: SODIUM CHLORIDE 1,000 ML IV SCH (23:15)
[2018-08-06 00:28] LABS: BASO % 0.9 % (0-2.0); EOS % 0.5 % (0-4.5); HEMATOCRIT 29.5 % (32.4-45.2); LYMPH % 25.7 % (8-40); MCH 28.9 pg (25.7-33.7); MCHC 33.9 g/dl (32.0-36.0); MEAN CELL VOLUME 85.3 fl (80-96); MEAN PLT VOLUME 8.2 fl (7.5-11.1); MONO % 2.9 % (3.8-10.2); PLATELET COUNT 215 K/MM3 (134-434); RBC 3.46 M/mm3 (3.60-5.2); RDW 17.9 % (11.6-15.6); WHITE BLOOD COUNT 8.4 K/mm3 (4.0-10.0)
[2018-08-06] MEDS: MORPHINE SULFATE 2 MG/ML VIAL IVPUSH PRN ×5 (05:41→22:19)
[2018-08-06] MEDS: SODIUM CHLORIDE 1,000 ML IV SCH ×2 (05:45→09:43)
[2018-08-06] MEDS: INSULIN SLIDING SCALE (NOVOLOG) 1 VIAL SQ SCH ×4 (06:11→21:53)
--- NOTE | 2018-08-06 08:58 | PN ---
Progress Note (short form) - Note Progress Note: C/o Abd pain CT abd report noted BGM fluctuating Vital Signs Period Temp Pulse Resp BP Sys/Rapp Pulse Ox Last 24 Hr 98 F-99.6 F 76-87 18-20 102-112/60-71 95-96 PE: AOx3 Neck: supple, No JVD HHENT: PERRL, EOMI Lungs: CTA CVS: S1S2 Abd: Benign Ext: No edema, No erythema, no swellings Neuro: No focal deficit CMP Sodium 146 mmol/L (136-145) H 08/05/18 07:00 Potassium 3.2 mmol/L (3.5-5.1) L 08/05/18 07:00 Chloride 117 mmol/L (98-107) H 08/05/18 07:00 Carbon Dioxide 21 mmol/L (21-32) 08/05/18 07:00 Anion Gap 8 MMOL/L (8-16) 08/05/18 07:00 BUN 6 mg/dL (7-18) L 08/05/18 07:00 Creatinine 0.6 mg/dL (0.55-1.3) 08/05/18 07:00 Creat Clearance w eGFR > 60 (>60) 08/05/18 07:00 POC Glucometer 125 UNITS (80-120) 08/06/18 05:47 Random Glucose 123 mg/dL (74-106) H 08/05/18 07:00 Lactic Acid 4.2 mmol/L (0.4-2.0) H* 08/06/18 00:05 Calcium 7.1 mg/dL (8.5-10.1) L 08/05/18 07:00 Phosphorus 0.8 mg/dL (2.5-4.9) L* 08/05/18 07:00 Magnesium 2.0 mg/dL (1.8-2.4) 08/05/18 07:00 Total Bilirubin 0.3 mg/dL (0.2-1) 08/05/18 07:00 AST 25 U/L (15-37) 08/05/18 07:00 ALT 15 U/L (13-61) 08/05/18 07:00 Alkaline Phosphatase 123 U/L (45-117) H 08/05/18 07:00 Creatine Kinase 101 U/L (26-192) 08/03/18 05:21 Troponin I < 0.02 ng/ml (0.00-0.05) 08/03/18 05:21 Total Protein 4.6 g/dl (6.4-8.2) L 08/05/18 07:00 Albumin 2.0 g/dl (3.4-5.0) L 08/05/18 07:00 Vitamin B12 1108 pg/ml (193-986) H 08/04/18 05:30 Serum Folate 16 ng/mL (3.1-17.5) 08/04/18 05:30 Current Medications Generic Name Dose Route Start Last Admin Trade Name Freq PRN Reason Stop Dose Admin Acetaminophen 650 mg 08/04/18 14:10 08/05/18 22:32 Tylenol - PO 650 mg Q6H PRN Administration PAIN 1-3 Heparin Sodium (Porcine) 5,000 unit 08/05/18 10:00 08/05/18 22:28 Heparin - SQ 5,000 unit BID [facility] Administration Sodium Chloride 1,000 mls @ 200 mls/hr 08/05/18 23:00 08/06/18 05:45 Normal Saline - IV 200 mls/hr ASDIR [facility] Administration Insulin Aspart 1 vial 08/05/18 11:00 08/06/18 06:11 Novolog Vial Sliding Scale - SQ Not Given TIDAC [facility] Protocol Insulin Aspart 1 vial 08/05/18 22:00 08/05/18 22:28 Novolog Vial Sliding Scale - SQ 5 units HS [facility] Administration Protocol Morphine Sulfate 2 mg 08/05/18 22:53 08/06/18 05:41 Morphine Sulfate IVPUSH 2 mg Q4H PRN Administration PAIN LEVEL 4 - 6 Pantoprazole Sodium 40 mg 08/06/18 10:00 Protonix Iv IVPUSH DAILY [facility] AP: T1DM Diabetic Ketoacidosis resolved Acute bowel ischemia vs enteritis on CT: Surgery consulted and pt is currently NPO Gastroparesis: To f/u with GI at [facility]. GIANCARLO: resolved HTN Hyperlipidemia h/o CVA IV hydration Start D10 42 ml/hr Decrease NS 150 ml/hr Levemir 6 units Stat, one hr after starting D10 while pt is NPO. Needs to be on Basal Insulineven while pt is NPO to prevent redevelopment of DKA. Increase D10W if necessary to maintain BGM >120. NOvolog SS coverage Electrolyte replacement as necessary I will be away starting tomorrow 08/07/2018 until 08/18/18. Dr Chapman is covering.
[2018-08-06] MEDS ORDERED: DEXTROSE 10%-WATER - 1,000 ML IV SCH (09:00)
[2018-08-06] MEDS ORDERED: INSULIN (LEVEMIR) 100 UNITS/ML UNITS SQ ONE ×2 (09:01→11:35)
[2018-08-06] MEDS: PANTOPRAZOLE SODIUM 40 MG VIAL IVPUSH SCH (09:43)
[2018-08-06 09:57] LABS: ALK PHOS 135 U/L (45-117); ANION GAP 6 MMOL/L (8-16); BILIRUBIN,TOTAL 0.2 mg/dL (0.2-1); BLOOD UREA NITROGEN 7 mg/dL (7-18); CALCIUM 7.4 mg/dL (8.5-10.1); CHLORIDE 119 mmol/L (98-107); CO2 25 mmol/L (21-32); CREATININE 0.4 mg/dL (0.55-1.3); GLUCOSE,RANDOM 82 mg/dL (74-106); PHOSPHOROUS 2.3 mg/dL (2.5-4.9); POTASSIUM 3.3 mmol/L (3.5-5.1); SGOT/AST 12 U/L (15-37); SGPT/ALT 14 U/L (13-61); SODIUM 149 mmol/L (136-145); TOT PROT 4.6 g/dl (6.4-8.2)
[2018-08-06 10:51] LABS: HEMATOCRIT 27.7 % (32.4-45.2); HEMOGLOBIN 9.2 GM/dL (10.7-15.3); LYMPH % 22.7 % (8-40); MEAN CELL VOLUME 84.8 fl (80-96); NEUT % 71.4 % (42.8-82.8); PLATELET COUNT 195 K/MM3 (134-434); RBC 3.27 M/mm3 (3.60-5.2); RDW 17.9 % (11.6-15.6)
[2018-08-06 10:52] LABS: BASO % 0.6 % (0-2.0); EOS % 1.3 % (0-4.5)
[2018-08-06] MEDS: HEPARIN NA (PORCINE) 5,000 UNITS/ML 1ML VIAL SQ SCH ×2 (11:19→21:54)
--- NOTE | 2018-08-06 15:11 | PN ---
Progress Note, Physician History of Present Illness: stable c/o of abd pain no other findings - Current Medication List Current Medications: Active Medications Acetaminophen (Tylenol -) 650 mg PO Q6H PRN PRN Reason: PAIN 1-3 Last Admin: 08/05/18 22:32 Dose: 650 mg Heparin Sodium (Porcine) (Heparin -) 5,000 unit SQ BID [facility] Last Admin: 08/06/18 11:19 Dose: Not Given Dextrose (D10w -) 1,000 mls @ 42 mls/hr IV ASDIR [facility] Last Admin: 08/06/18 10:20 Dose: 42 mls/hr Sodium Chloride (Normal Saline -) 1,000 mls @ 150 mls/hr IV ASDIR [facility] Last Admin: 08/06/18 09:43 Dose: 150 mls/hr Insulin Aspart (Novolog Vial Sliding Scale -) 1 vial SQ TIDAC [facility]; Protocol Last Admin: 08/06/18 11:31 Dose: Not Given Insulin Aspart (Novolog Vial Sliding Scale -) 1 vial SQ HS [facility]; Protocol Last Admin: 08/05/18 22:28 Dose: 5 units Morphine Sulfate (Morphine Sulfate) 2 mg IVPUSH Q4H PRN PRN Reason: PAIN LEVEL 4 - 6 Last Admin: 08/06/18 14:04 Dose: 2 mg Pantoprazole Sodium (Protonix Iv) 40 mg IVPUSH DAILY [facility] Last Admin: 08/06/18 09:43 Dose: 40 mg - Objective Vital Signs: Vital Signs Temperature 98.5 F 08/06/18 14:34 Pulse Rate 78 08/06/18 14:34 Respiratory Rate 20 08/06/18 08:39 Blood Pressure 125/72 08/06/18 14:34 O2 Sat by Pulse Oximetry (%) 95 08/05/18 21:00 Constitutional: Yes: Calm, Mild Distress Cardiovascular: Yes: Regular Rate and Rhythm Respiratory: Yes: Regular, CTA Bilaterally Gastrointestinal: Yes: Soft, Other (abd pain) Musculoskeletal: Yes: WNL Extremities: Yes: WNL Neurological: Yes: Alert, Oriented Psychiatric: Yes: Alert, Oriented Labs: CBC, BMP 08/06/18 07:30 08/06/18 07:30 INR, PTT INR 0.98 (0.83-1.09) 08/03/18 05:00 Assessment/Plan Diabetic Ketoacidosis Severe Metabolic Acidosis Acute Kidney Injury HTN Hyperlipidemia h/o CVA Noncompliance plan continue fluids worry about ischemia of the bowel hydration surgery imaging studies
--- NOTE | 2018-08-06 16:50 | PN ---
Progress Note, Physician History of Present Illness: c/o abdominal pain - Current Medication List Current Medications: Active Medications Acetaminophen (Tylenol -) 650 mg PO Q6H PRN PRN Reason: PAIN 1-3 Last Admin: 08/05/18 22:32 Dose: 650 mg Heparin Sodium (Porcine) (Heparin -) 5,000 unit SQ BID [facility] Last Admin: 08/06/18 11:19 Dose: Not Given Dextrose (D10w -) 1,000 mls @ 42 mls/hr IV ASDIR [facility] Last Admin: 08/06/18 10:20 Dose: 42 mls/hr Sodium Chloride (Normal Saline -) 1,000 mls @ 150 mls/hr IV ASDIR [facility] Last Admin: 08/06/18 09:43 Dose: 150 mls/hr Insulin Aspart (Novolog Vial Sliding Scale -) 1 vial SQ TIDAC [facility]; Protocol Last Admin: 08/06/18 11:31 Dose: Not Given Insulin Aspart (Novolog Vial Sliding Scale -) 1 vial SQ HS [facility]; Protocol Last Admin: 08/05/18 22:28 Dose: 5 units Morphine Sulfate (Morphine Sulfate) 2 mg IVPUSH Q4H PRN PRN Reason: PAIN LEVEL 4 - 6 Last Admin: 08/06/18 14:04 Dose: 2 mg Pantoprazole Sodium (Protonix Iv) 40 mg IVPUSH DAILY [facility] Last Admin: 08/06/18 09:43 Dose: 40 mg - Objective Vital Signs: Vital Signs Temperature 98.5 F 08/06/18 14:34 Pulse Rate 78 08/06/18 14:34 Respiratory Rate 20 08/06/18 08:39 Blood Pressure 125/72 08/06/18 14:34 O2 Sat by Pulse Oximetry (%) 100 08/06/18 09:00 Constitutional: Yes: No Distress HENT: Yes: Atraumatic Neck: Yes: Supple Cardiovascular: Yes: Regular Rate and Rhythm Respiratory: Yes: CTA Bilaterally Gastrointestinal: Yes: Normal Bowel Sounds, Tenderness (diffuse) Extremities: Yes: WNL Edema: No Neurological: Yes: Alert, Oriented Labs: CBC, BMP 08/06/18 07:30 08/06/18 07:30 INR, PTT INR 0.98 (0.83-1.09) 08/03/18 05:00 Problem List - Problems (1) Ketoacidosis in type I diabetes mellitus Assessment/Plan: on insulin, check bgms iv hydration monitor bgms endo consult Code(s): E10.10 - TYPE 1 DIABETES MELLITUS WITH KETOACIDOSIS WITHOUT COMA (2) Hypophosphatemia Assessment/Plan: replace Code(s): E83.39 - OTHER DISORDERS OF PHOSPHORUS METABOLISM (3) Hypokalemia Assessment/Plan: replace Code(s): E87.6 - HYPOKALEMIA (4) Abdominal pain Assessment/Plan: npo ivf Code(s): R10.9 - UNSPECIFIED ABDOMINAL PAIN
[2018-08-06] MEDS: KCL 10 MEQ IVPB 10 MEQ/100 ML INFUS.BAG IVPB SCH ×3 (19:44→23:55)
[2018-08-06] MEDS: DEXTROSE 10%-WATER - 1,000 ML IV SCH ×2 (19:45→21:54)
[2018-08-07] MEDS: MORPHINE SULFATE 2 MG/ML VIAL IVPUSH PRN ×5 (03:36→20:39)
[2018-08-07] MEDS: INSULIN (LEVEMIR) 100 UNITS/ML UNITS SQ SCH (06:30)
[2018-08-07] MEDS: INSULIN SLIDING SCALE (NOVOLOG) 1 VIAL SQ SCH ×4 (06:31→21:00)
[2018-08-07] MEDS: DEXTROSE 10%-WATER - 1,000 ML IV SCH ×2 (06:31→20:40)
[2018-08-07 08:21] LABS: ALK PHOS 154 U/L (45-117); ANION GAP 7 MMOL/L (8-16); BILIRUBIN,TOTAL 0.3 mg/dL (0.2-1); BLOOD UREA NITROGEN 5 mg/dL (7-18); CALCIUM 7.3 mg/dL (8.5-10.1); CHLORIDE 111 mmol/L (98-107); CO2 24 mmol/L (21-32); CREATININE 0.5 mg/dL (0.55-1.3); MAGNESIUM 2.1 mg/dL (1.8-2.4); PHOSPHOROUS 2.5 mg/dL (2.5-4.9); POTASSIUM 3.4 mmol/L (3.5-5.1); SGOT/AST 8 U/L (15-37); SGPT/ALT 12 U/L (13-61); SODIUM 142 mmol/L (136-145); TOT PROT 4.9 g/dl (6.4-8.2)
[2018-08-07 08:53] LABS: GLUCOSE,RANDOM 363 mg/dL (74-106)
--- NOTE | 2018-08-07 09:21 | PN ---
Progress Note (short form) - Note Progress Note: Pt seen and examined on Am rounds. Reports continued pain with movement and examination. NPO. No BMS/flatus. Denies cp/sob, n/v/d. Vital Signs Temp 99 F 08/07/18 11:00 Pulse 81 08/07/18 11:00 Resp 20 08/07/18 09:00 BP 120/74 08/07/18 11:00 Pulse Ox 99 08/07/18 09:00 Intake & Output 08/06/18 08/07/18 08/07/18 23:59 11:59 23:59 Intake Total 2604 1700 Balance 2604 1700 Weight 142 lb 6 oz Intake: IV 2304 1700 D10w - 1,000 ml @ 42 mls/ 504 hr IV ASDIR [facility] Rx#: [id number] D10w - 1,000 ml @ 42 mls/ 900 hr IV ASDIR [facility] Rx#: [id number] Normal Saline - 1,000 ml 1800 800 @ 150 mls/hr IV ASDIR [facility] Rx#:[id number] IVPB 300 Oral 0 0 Other: Voiding Method Toilet Toilet # Unmeasured Voids Lott 1 Void 2 Bowel Movement No Weight Measurement Method Built in Bedscale CBC, BMP 08/06/18 07:30 08/07/18 06:00 Gen: awake, alert, nad Resp: Unlabored on RA Abdo: soft, nondistended, +TTP epigastric region. +bowel sounds. No rebound or guarding A/P: 48 y/o F w/ PMHx poorly controlled IDDM with frequent hospitalizations for DKA, HTN, CVA, HLD admitted 2/4 for n/v and lethargy. Surgery consulted for further evaluation. Persistent abdominal pain possibly secondary to uncontrolled DM Afebrile, vss, no leukocytosis Continue NPO, IVF Continue serial abdo exams Glucose control Monitor VS Will follow d/w attending Dr Griffith
[2018-08-07] MEDS: SODIUM CHLORIDE 1,000 ML IV SCH (09:58)
[2018-08-07] MEDS: PANTOPRAZOLE SODIUM 40 MG VIAL IVPUSH SCH (09:59)
[2018-08-07] MEDS: HEPARIN NA (PORCINE) 5,000 UNITS/ML 1ML VIAL SQ SCH ×2 (09:59→21:05)
[2018-08-07] MEDS ORDERED: INSULIN (LEVEMIR) 100 UNITS/ML UNITS SQ ONE (10:00)
--- NOTE | 2018-08-07 11:51 | PN ---
Progress Note, Physician History of Present Illness: c/o abdominal pain - Current Medication List Current Medications: Active Medications Acetaminophen (Tylenol -) 650 mg PO Q6H PRN PRN Reason: PAIN 1-3 Last Admin: 08/05/18 22:32 Dose: 650 mg Heparin Sodium (Porcine) (Heparin -) 5,000 unit SQ BID [facility] Last Admin: 08/07/18 09:59 Dose: Not Given Sodium Chloride (Normal Saline -) 1,000 mls @ 150 mls/hr IV ASDIR [facility] Last Admin: 08/07/18 09:58 Dose: 150 mls/hr Dextrose (D10w -) 1,000 mls @ 42 mls/hr IV ASDIR [facility] Last Admin: 08/07/18 06:31 Dose: 42 mls/hr Insulin Aspart (Novolog Vial Sliding Scale -) 1 vial SQ TIDAC [facility]; Protocol Last Admin: 08/07/18 11:15 Dose: Not Given Insulin Aspart (Novolog Vial Sliding Scale -) 1 vial SQ HS [facility]; Protocol Last Admin: 08/06/18 21:53 Dose: Not Given Insulin Detemir (Levemir Vial) 8 units SQ AM [facility] Last Admin: 08/07/18 06:30 Dose: 8 unit Morphine Sulfate (Morphine Sulfate) 2 mg IVPUSH Q4H PRN PRN Reason: PAIN LEVEL 4 - 6 Last Admin: 08/07/18 08:09 Dose: 2 mg Pantoprazole Sodium (Protonix Iv) 40 mg IVPUSH DAILY [facility] Last Admin: 08/07/18 09:59 Dose: 40 mg - Objective Vital Signs: Vital Signs Temperature 99 F 08/07/18 11:00 Pulse Rate 81 08/07/18 11:00 Respiratory Rate 20 08/07/18 02:00 Blood Pressure 120/74 08/07/18 11:00 O2 Sat by Pulse Oximetry (%) 98 08/06/18 20:51 Constitutional: Yes: No Distress HENT: Yes: Atraumatic Neck: Yes: Supple Cardiovascular: Yes: Regular Rate and Rhythm Respiratory: Yes: CTA Bilaterally Gastrointestinal: Yes: Tenderness (mild diffuse) Extremities: Yes: WNL Edema: No Peripheral Pulses WNL: Yes Neurological: Yes: Alert, Oriented Labs: CBC, BMP 08/06/18 07:30 08/07/18 06:00 INR, PTT INR 0.98 (0.83-1.09) 08/03/18 05:00 Problem List - Problems (1) Ketoacidosis in type I diabetes mellitus Assessment/Plan: on insulin, check bgms iv hydration monitor bgms Code(s): E10.10 - TYPE 1 DIABETES MELLITUS WITH KETOACIDOSIS WITHOUT COMA (2) Hypophosphatemia Assessment/Plan: replace Code(s): E83.39 - OTHER DISORDERS OF PHOSPHORUS METABOLISM (3) Hypokalemia Assessment/Plan: replace Code(s): E87.6 - HYPOKALEMIA (4) Abdominal pain Assessment/Plan: npo ivf prn pain meds Code(s): R10.9 - UNSPECIFIED ABDOMINAL PAIN
--- NOTE | 2018-08-07 13:46 | PN ---
Progress Note, Physician History of Present Illness: stable c/o of abd pain no other findings surgery following - Current Medication List Current Medications: Active Medications Acetaminophen (Tylenol -) 650 mg PO Q6H PRN PRN Reason: PAIN 1-3 Last Admin: 08/05/18 22:32 Dose: 650 mg Heparin Sodium (Porcine) (Heparin -) 5,000 unit SQ BID [facility] Last Admin: 08/07/18 09:59 Dose: Not Given Sodium Chloride (Normal Saline -) 1,000 mls @ 150 mls/hr IV ASDIR [facility] Last Admin: 08/07/18 09:58 Dose: 150 mls/hr Dextrose (D10w -) 1,000 mls @ 42 mls/hr IV ASDIR [facility] Last Admin: 08/07/18 06:31 Dose: 42 mls/hr Insulin Aspart (Novolog Vial Sliding Scale -) 1 vial SQ TIDAC [facility]; Protocol Last Admin: 08/07/18 11:15 Dose: Not Given Insulin Aspart (Novolog Vial Sliding Scale -) 1 vial SQ HS [facility]; Protocol Last Admin: 08/06/18 21:53 Dose: Not Given Insulin Detemir (Levemir Vial) 8 units SQ AM [facility] Last Admin: 08/07/18 06:30 Dose: 8 unit Morphine Sulfate (Morphine Sulfate) 2 mg IVPUSH Q4H PRN PRN Reason: PAIN LEVEL 4 - 6 Last Admin: 08/07/18 12:06 Dose: 2 mg Ondansetron HCl (Zofran Injection) 4 mg IVPB Q4H PRN PRN Reason: NAUSEA AND/OR VOMITING Pantoprazole Sodium (Protonix Iv) 40 mg IVPUSH DAILY [facility] Last Admin: 08/07/18 09:59 Dose: 40 mg - Objective Vital Signs: Vital Signs Temperature 99 F 08/07/18 11:00 Pulse Rate 81 08/07/18 11:00 Respiratory Rate 20 08/07/18 09:00 Blood Pressure 120/74 08/07/18 11:00 O2 Sat by Pulse Oximetry (%) 99 08/07/18 09:00 Constitutional: Yes: Calm, Mild Distress Cardiovascular: Yes: Regular Rate and Rhythm Respiratory: Yes: Regular, CTA Bilaterally Gastrointestinal: Yes: Soft, Hypoactive Bowel Sounds Musculoskeletal: Yes: WNL Extremities: Yes: WNL Neurological: Yes: Alert, Oriented Psychiatric: Yes: Alert, Oriented Labs: CBC, BMP 08/06/18 07:30 08/07/18 06:00 INR, PTT INR 0.98 (0.83-1.09) 08/03/18 05:00 Assessment/Plan Diabetic Ketoacidosis Severe Metabolic Acidosis Acute Kidney Injury HTN Hyperlipidemia h/o CVA Noncompliance abd pain plan continue fluids ct scan noted will d/w surgery might need to start on abx labs normal
[2018-08-07] MEDS ORDERED: INSULIN (NOVOLOG) ASPART 100 UNITS/ML 10ML VIAL ONE (20:52)
[2018-08-08] MEDS: SODIUM CHLORIDE 1,000 ML IV SCH ×2 (00:34→22:08)
[2018-08-08] MEDS: DEXTROSE 10%-WATER - 1,000 ML IV SCH ×2 (00:35→22:08)
[2018-08-08] MEDS: MORPHINE SULFATE 2 MG/ML VIAL IVPUSH PRN ×6 (00:37→21:58)
[2018-08-08] MEDS: INSULIN (LEVEMIR) 100 UNITS/ML UNITS SQ SCH (06:01)
[2018-08-08] MEDS: INSULIN SLIDING SCALE (NOVOLOG) 1 VIAL SQ SCH ×4 (06:02→22:08)
[2018-08-08] MEDS: HEPARIN NA (PORCINE) 5,000 UNITS/ML 1ML VIAL SQ SCH ×2 (09:42→21:58)
[2018-08-08] MEDS: PANTOPRAZOLE SODIUM 40 MG VIAL IVPUSH SCH (09:42)
--- NOTE | 2018-08-08 13:25 | PN ---
Progress Note (short form) - Note Progress Note: Attending Surgeon Still c/o pain; wants to eat VSS AF abdo-soft; minimal if any tenderness WBC-nl IMP: no evidence of an acute surgical abdomen PLAN; Check lactic acid and if ok trial of clear liquids Reggie Griffith MD FACS
--- NOTE | 2018-08-08 14:54 | PN ---
Progress Note, Physician History of Present Illness: patient stable still continues to have abd pain started on liquids surgery following the patient - Current Medication List Current Medications: Active Medications Acetaminophen (Tylenol -) 650 mg PO Q6H PRN PRN Reason: PAIN 1-3 Last Admin: 08/05/18 22:32 Dose: 650 mg Heparin Sodium (Porcine) (Heparin -) 5,000 unit SQ BID [facility] Last Admin: 08/08/18 09:42 Dose: 5,000 unit Sodium Chloride (Normal Saline -) 1,000 mls @ 150 mls/hr IV ASDIR [facility] Last Admin: 08/08/18 00:34 Dose: 150 mls/hr Dextrose (D10w -) 1,000 mls @ 42 mls/hr IV ASDIR [facility] Last Admin: 08/08/18 00:35 Dose: 42 mls/hr Insulin Aspart (Novolog Vial Sliding Scale -) 1 vial SQ TIDAC [facility]; Protocol Last Admin: 08/08/18 11:42 Dose: Not Given Insulin Aspart (Novolog Vial Sliding Scale -) 1 vial SQ HS [facility]; Protocol Last Admin: 08/07/18 21:00 Dose: 3 units Insulin Detemir (Levemir Vial) 8 units SQ AM [facility] Last Admin: 08/08/18 06:01 Dose: 8 unit Morphine Sulfate (Morphine Sulfate) 2 mg IVPUSH Q4H PRN PRN Reason: PAIN LEVEL 4 - 6 Last Admin: 08/08/18 13:19 Dose: 2 mg Ondansetron HCl (Zofran Injection) 4 mg IVPB Q4H PRN PRN Reason: NAUSEA AND/OR VOMITING Pantoprazole Sodium (Protonix Iv) 40 mg IVPUSH DAILY [facility] Last Admin: 08/08/18 09:42 Dose: 40 mg - Objective Vital Signs: Vital Signs Temperature 98.4 F 08/08/18 14:30 Pulse Rate 78 08/08/18 14:30 Respiratory Rate 20 08/08/18 14:30 Blood Pressure 134/75 08/08/18 14:30 O2 Sat by Pulse Oximetry (%) 99 08/07/18 21:00 Constitutional: Yes: Calm, Mild Distress Cardiovascular: Yes: Regular Rate and Rhythm Respiratory: Yes: Regular, CTA Bilaterally Gastrointestinal: Yes: Normal Bowel Sounds, Soft Musculoskeletal: Yes: WNL Extremities: Yes: WNL Neurological: Yes: Alert, Oriented Psychiatric: Yes: Alert, Oriented Labs: CBC, BMP 08/06/18 07:30 08/07/18 06:00 INR, PTT INR 0.98 (0.83-1.09) 08/03/18 05:00 Assessment/Plan Diabetic Ketoacidosis Severe Metabolic Acidosis Acute Kidney Injury HTN Hyperlipidemia h/o CVA Noncompliance abd pain plan continue fluids consider repeating imaging studies rest as per the team surgery on board
--- NOTE | 2018-08-08 16:18 | PN ---
Progress Note, Physician - Current Medication List Current Medications: Active Medications Acetaminophen (Tylenol -) 650 mg PO Q6H PRN PRN Reason: PAIN 1-3 Last Admin: 08/05/18 22:32 Dose: 650 mg Heparin Sodium (Porcine) (Heparin -) 5,000 unit SQ BID [facility] Last Admin: 08/08/18 09:42 Dose: 5,000 unit Sodium Chloride (Normal Saline -) 1,000 mls @ 150 mls/hr IV ASDIR [facility] Last Admin: 08/08/18 00:34 Dose: 150 mls/hr Dextrose (D10w -) 1,000 mls @ 42 mls/hr IV ASDIR [facility] Last Admin: 08/08/18 00:35 Dose: 42 mls/hr Insulin Aspart (Novolog Vial Sliding Scale -) 1 vial SQ TIDAC [facility]; Protocol Last Admin: 08/08/18 11:42 Dose: Not Given Insulin Aspart (Novolog Vial Sliding Scale -) 1 vial SQ HS [facility]; Protocol Last Admin: 08/07/18 21:00 Dose: 3 units Insulin Detemir (Levemir Vial) 8 units SQ AM [facility] Last Admin: 08/08/18 06:01 Dose: 8 unit Morphine Sulfate (Morphine Sulfate) 2 mg IVPUSH Q4H PRN PRN Reason: PAIN LEVEL 4 - 6 Last Admin: 08/08/18 13:19 Dose: 2 mg Ondansetron HCl (Zofran Injection) 4 mg IVPB Q4H PRN PRN Reason: NAUSEA AND/OR VOMITING Pantoprazole Sodium (Protonix Iv) 40 mg IVPUSH DAILY [facility] Last Admin: 08/08/18 09:42 Dose: 40 mg - Objective Vital Signs: Vital Signs Temperature 98.4 F 08/08/18 14:30 Pulse Rate 78 08/08/18 14:30 Respiratory Rate 20 08/08/18 14:30 Blood Pressure 134/75 08/08/18 14:30 O2 Sat by Pulse Oximetry (%) 99 08/07/18 21:00 Constitutional: Yes: No Distress HENT: Yes: Atraumatic Neck: Yes: Supple Cardiovascular: Yes: Regular Rate and Rhythm Respiratory: Yes: CTA Bilaterally Gastrointestinal: Yes: Tenderness, Rebound (mild) Extremities: Yes: WNL Edema: No Peripheral Pulses WNL: Yes Neurological: Yes: Alert, Oriented Labs: CBC, BMP 08/06/18 07:30 08/07/18 06:00 INR, PTT INR 0.98 (0.83-1.09) 08/03/18 05:00 Problem List - Problems (1) Ketoacidosis in type I diabetes mellitus Assessment/Plan: on insulin, check bgms iv hydration monitor bgms Code(s): E10.10 - TYPE 1 DIABETES MELLITUS WITH KETOACIDOSIS WITHOUT COMA (2) Hypophosphatemia Code(s): E83.39 - OTHER DISORDERS OF PHOSPHORUS METABOLISM (3) Hypokalemia Code(s): E87.6 - HYPOKALEMIA (4) Abdominal pain Assessment/Plan: on clear liquid diet prn pain meds Code(s): R10.9 - UNSPECIFIED ABDOMINAL PAIN
[2018-08-08] MEDS ORDERED: INSULIN (NOVOLOG) ASPART 100 UNITS/ML 10ML VIAL ONE ×2 (18:01→21:50)
[2018-08-09] MEDS: MORPHINE SULFATE 2 MG/ML VIAL IVPUSH PRN ×6 (04:39→23:45)
[2018-08-09] MEDS: INSULIN SLIDING SCALE (NOVOLOG) 1 VIAL SQ SCH ×4 (06:46→21:42)
[2018-08-09] MEDS: INSULIN (LEVEMIR) 100 UNITS/ML UNITS SQ SCH (06:46)
[2018-08-09] MEDS: SODIUM CHLORIDE 1,000 ML IV SCH ×2 (06:50→09:14)
[2018-08-09] MEDS: DEXTROSE 10%-WATER - 1,000 ML IV SCH (06:50)
[2018-08-09] MEDS ORDERED: INSULIN (NOVOLOG) ASPART 100 UNITS/ML 10ML VIAL ONE ×2 (06:56→21:23)
[2018-08-09] MEDS: HEPARIN NA (PORCINE) 5,000 UNITS/ML 1ML VIAL SQ SCH ×2 (09:14→21:42)
[2018-08-09] MEDS: PANTOPRAZOLE SODIUM 40 MG VIAL IVPUSH SCH (09:14)
--- NOTE | 2018-08-09 12:30 | PN ---
Progress Note, Physician History of Present Illness: stable still with abd pain tolerating orally - Current Medication List Current Medications: Active Medications Acetaminophen (Tylenol -) 650 mg PO Q6H PRN PRN Reason: PAIN 1-3 Last Admin: 08/05/18 22:32 Dose: 650 mg Heparin Sodium (Porcine) (Heparin -) 5,000 unit SQ BID [facility] Last Admin: 08/09/18 09:14 Dose: 5,000 unit Sodium Chloride (Normal Saline -) 1,000 mls @ 150 mls/hr IV ASDIR [facility] Last Admin: 08/09/18 09:14 Dose: Not Given Dextrose (D10w -) 1,000 mls @ 42 mls/hr IV ASDIR [facility] Last Admin: 08/09/18 06:50 Dose: 42 mls/hr Insulin Aspart (Novolog Vial Sliding Scale -) 1 vial SQ TIDAC [facility]; Protocol Last Admin: 08/09/18 11:49 Dose: 4 units Insulin Aspart (Novolog Vial Sliding Scale -) 1 vial SQ HS [facility]; Protocol Last Admin: 08/08/18 22:08 Dose: Not Given Insulin Detemir (Levemir Vial) 8 units SQ AM [facility] Last Admin: 08/09/18 06:46 Dose: 8 unit Morphine Sulfate (Morphine Sulfate) 2 mg IVPUSH Q4H PRN PRN Reason: PAIN LEVEL 6-10 Last Admin: 08/09/18 09:14 Dose: 2 mg Ondansetron HCl (Zofran Injection) 4 mg IVPB Q4H PRN PRN Reason: NAUSEA AND/OR VOMITING Pantoprazole Sodium (Protonix Iv) 40 mg IVPUSH DAILY [facility] Last Admin: 08/09/18 09:14 Dose: 40 mg - Objective Vital Signs: Vital Signs Temperature 97.9 F 08/09/18 10:00 Pulse Rate 83 08/09/18 10:00 Respiratory Rate 20 08/09/18 10:00 Blood Pressure 128/79 08/09/18 10:00 O2 Sat by Pulse Oximetry (%) 96 08/09/18 09:00 Constitutional: Yes: No Distress, Calm Cardiovascular: Yes: Regular Rate and Rhythm Respiratory: Yes: Regular, CTA Bilaterally Gastrointestinal: Yes: Normal Bowel Sounds, Soft Musculoskeletal: Yes: WNL Extremities: Yes: WNL Neurological: Yes: Alert, Oriented Psychiatric: Yes: Alert, Oriented Labs: CBC, BMP 08/06/18 07:30 08/07/18 06:00 INR, PTT INR 0.98 (0.83-1.09) 08/03/18 05:00 Assessment/Plan Diabetic Ketoacidosis Severe Metabolic Acidosis Acute Kidney Injury HTN Hyperlipidemia h/o CVA Noncompliance abd pain plan continue fluids as per surgery will see how patient does rest as per the team
[2018-08-09] MEDS: SODIUM CHLORIDE 0.45% 1,000 ML IV SCH (12:47)
--- NOTE | 2018-08-09 13:56 | PN ---
Progress Note (short form) - Note Progress Note: Attending Surgeon No new c/o toleratimg liquids; still c/o pain abdo-soft and non tender when distracted IMP; abdominal pain PLAN: Suggest repeat CT scan a/p. Reggie Griffith MD FACS
--- NOTE | 2018-08-09 19:13 | PN ---
Progress Note, Physician - Current Medication List Current Medications: Active Medications Acetaminophen (Tylenol -) 650 mg PO Q6H PRN PRN Reason: PAIN 1-3 Last Admin: 08/05/18 22:32 Dose: 650 mg Heparin Sodium (Porcine) (Heparin -) 5,000 unit SQ BID [facility] Last Admin: 08/09/18 09:14 Dose: 5,000 unit Sodium Chloride (1/2 Normal Saline) 1,000 mls @ 100 mls/hr IV ASDIR [facility] Last Admin: 08/09/18 12:47 Dose: 100 mls/hr Insulin Aspart (Novolog Vial Sliding Scale -) 1 vial SQ TIDAC [facility]; Protocol Last Admin: 08/09/18 16:15 Dose: Not Given Insulin Aspart (Novolog Vial Sliding Scale -) 1 vial SQ HS [facility]; Protocol Last Admin: 08/08/18 22:08 Dose: Not Given Insulin Detemir (Levemir Vial) 8 units SQ AM [facility] Last Admin: 08/09/18 06:46 Dose: 8 unit Morphine Sulfate (Morphine Sulfate) 2 mg IVPUSH Q4H PRN PRN Reason: PAIN LEVEL 6-10 Last Admin: 08/09/18 18:21 Dose: 2 mg Ondansetron HCl (Zofran Injection) 4 mg IVPB Q4H PRN PRN Reason: NAUSEA AND/OR VOMITING Pantoprazole Sodium (Protonix Iv) 40 mg IVPUSH DAILY [facility] Last Admin: 08/09/18 09:14 Dose: 40 mg - Objective Vital Signs: Vital Signs Temperature 97.7 F 08/09/18 14:43 Pulse Rate 81 08/09/18 14:43 Respiratory Rate 20 08/09/18 14:43 Blood Pressure 115/66 08/09/18 14:43 O2 Sat by Pulse Oximetry (%) 96 08/09/18 09:00 Constitutional: Yes: No Distress HENT: Yes: Atraumatic Neck: Yes: Supple Cardiovascular: Yes: Regular Rate and Rhythm Respiratory: Yes: CTA Bilaterally Gastrointestinal: Yes: Tenderness (mild diffuse) Extremities: Yes: WNL Edema: No Peripheral Pulses WNL: Yes Neurological: Yes: Alert, Oriented Labs: CBC, BMP 08/06/18 07:30 08/07/18 06:00 INR, PTT INR 0.98 (0.83-1.09) 02/04/19 05:00 Problem List - Problems (1) Ketoacidosis in type I diabetes mellitus Assessment/Plan: on insulin, check bgms iv hydration monitor bgms Code(s): E10.10 - TYPE 1 DIABETES MELLITUS WITH KETOACIDOSIS WITHOUT COMA (2) Hypophosphatemia Code(s): E83.39 - OTHER DISORDERS OF PHOSPHORUS METABOLISM (3) Hypokalemia Code(s): E87.6 - HYPOKALEMIA (4) Abdominal pain Assessment/Plan: on clear liquid diet prn pain meds repeating ct scan Code(s): R10.9 - UNSPECIFIED ABDOMINAL PAIN
[2018-08-10] MEDS: MORPHINE SULFATE 2 MG/ML VIAL IVPUSH PRN ×5 (03:54→23:36)
[2018-08-10] MEDS: INSULIN (LEVEMIR) 100 UNITS/ML UNITS SQ SCH (06:55)
[2018-08-10] MEDS ORDERED: INSULIN (NOVOLOG) ASPART 100 UNITS/ML 10ML VIAL ONE ×2 (06:58→21:49)
[2018-08-10] MEDS: INSULIN SLIDING SCALE (NOVOLOG) 1 VIAL SQ SCH ×4 (06:59→21:52)
[2018-08-10 08:23] LABS: BASO % 0.4 % (0-2.0); HEMATOCRIT 27.6 % (32.4-45.2); HEMOGLOBIN 9.1 GM/dL (10.7-15.3); LYMPH % 30.2 % (8-40); MCH 28.1 pg (25.7-33.7); MCHC 33.1 g/dl (32.0-36.0); MEAN CELL VOLUME 84.9 fl (80-96); MEAN PLT VOLUME 7.6 fl (7.5-11.1); MONO % 14.3 % (3.8-10.2); NEUT % 53.1 % (42.8-82.8); PLATELET COUNT 393 K/MM3 (134-434); RBC 3.25 M/mm3 (3.60-5.2); RDW 17.2 % (11.6-15.6); WHITE BLOOD COUNT 7.2 K/mm3 (4.0-10.0)
[2018-08-10 08:27] LABS: ALK PHOS 151 U/L (45-117); ANION GAP 8 MMOL/L (8-16); BILIRUBIN,TOTAL 0.3 mg/dL (0.2-1); BLOOD UREA NITROGEN 3 mg/dL (7-18); CALCIUM 7.6 mg/dL (8.5-10.1); CHLORIDE 106 mmol/L (98-107); CO2 27 mmol/L (21-32); CREATININE 0.5 mg/dL (0.55-1.3); POTASSIUM 3.6 mmol/L (3.5-5.1); SGOT/AST 6 U/L (15-37); SGPT/ALT 9 U/L (13-61); SODIUM 140 mmol/L (136-145)
[2018-08-10 08:39] LABS: GLUCOSE,RANDOM 403 mg/dL (74-106)
[2018-08-10] MEDS: PANTOPRAZOLE SODIUM 40 MG VIAL IVPUSH SCH ×2 (08:49→10:49)
[2018-08-10] MEDS: HEPARIN NA (PORCINE) 5,000 UNITS/ML 1ML VIAL SQ SCH ×2 (10:49→21:51)
[2018-08-10] MEDS: SODIUM CHLORIDE 0.45% 1,000 ML IV SCH (10:49)
--- NOTE | 2018-08-10 13:25 | PN ---
Progress Note, Physician History of Present Illness: still continues to have abd pain ct done - Current Medication List Current Medications: Active Medications Acetaminophen (Tylenol -) 650 mg PO Q6H PRN PRN Reason: PAIN 1-3 Last Admin: 08/05/18 22:32 Dose: 650 mg Heparin Sodium (Porcine) (Heparin -) 5,000 unit SQ BID [facility] Last Admin: 08/10/18 10:49 Dose: Not Given Sodium Chloride (1/2 Normal Saline) 1,000 mls @ 100 mls/hr IV ASDIR [facility] Last Admin: 08/10/18 10:49 Dose: 100 mls/hr Insulin Aspart (Novolog Vial Sliding Scale -) 1 vial SQ TIDAC [facility]; Protocol Last Admin: 08/10/18 06:59 Dose: 6 units Insulin Aspart (Novolog Vial Sliding Scale -) 1 vial SQ HS [facility]; Protocol Last Admin: 08/09/18 21:42 Dose: 4 units Insulin Detemir (Levemir Vial) 8 units SQ AM [facility] Last Admin: 08/10/18 06:55 Dose: 8 unit Morphine Sulfate (Morphine Sulfate) 2 mg IVPUSH Q4H PRN PRN Reason: PAIN LEVEL 6-10 Last Admin: 08/10/18 08:50 Dose: 2 mg Ondansetron HCl (Zofran Injection) 4 mg IVPB Q4H PRN PRN Reason: NAUSEA AND/OR VOMITING Pantoprazole Sodium (Protonix Iv) 40 mg IVPUSH DAILY [facility] Last Admin: 08/10/18 10:49 Dose: 40 mg - Objective Vital Signs: Vital Signs Temperature 98.7 F 08/10/18 10:00 Pulse Rate 78 08/10/18 10:00 Respiratory Rate 20 08/10/18 10:00 Blood Pressure 123/75 08/10/18 10:00 O2 Sat by Pulse Oximetry (%) 96 08/09/18 21:00 Constitutional: Yes: Calm, Mild Distress Cardiovascular: Yes: Regular Rate and Rhythm Respiratory: Yes: Regular, CTA Bilaterally Gastrointestinal: Yes: Normal Bowel Sounds, Soft, Tenderness Musculoskeletal: Yes: WNL Extremities: Yes: WNL Neurological: Yes: Alert, Oriented Psychiatric: Yes: Alert, Oriented Labs: CBC, BMP 08/10/18 06:20 08/10/18 06:20 INR, PTT INR 0.98 (0.83-1.09) 08/03/18 05:00 Assessment/Plan Diabetic Ketoacidosis Severe Metabolic Acidosis Acute Kidney Injury HTN Hyperlipidemia h/o CVA Noncompliance abd pain plan continue current mgmt await for imaging studies rest as per surgery
--- NOTE | 2018-08-10 17:03 | PN ---
Progress Note, Physician - Current Medication List Current Medications: Active Medications Acetaminophen (Tylenol -) 650 mg PO Q6H PRN PRN Reason: PAIN 1-3 Last Admin: 08/05/18 22:32 Dose: 650 mg Heparin Sodium (Porcine) (Heparin -) 5,000 unit SQ BID [facility] Last Admin: 08/10/18 10:49 Dose: Not Given Sodium Chloride (1/2 Normal Saline) 1,000 mls @ 100 mls/hr IV ASDIR [facility] Last Admin: 08/10/18 10:49 Dose: 100 mls/hr Insulin Aspart (Novolog Vial Sliding Scale -) 1 vial SQ TIDAC [facility]; Protocol Last Admin: 08/10/18 06:59 Dose: 6 units Insulin Aspart (Novolog Vial Sliding Scale -) 1 vial SQ HS [facility]; Protocol Last Admin: 08/09/18 21:42 Dose: 4 units Insulin Detemir (Levemir Vial) 8 units SQ AM [facility] Last Admin: 08/10/18 06:55 Dose: 8 unit Morphine Sulfate (Morphine Sulfate) 2 mg IVPUSH Q4H PRN PRN Reason: PAIN LEVEL 6-10 Last Admin: 08/10/18 14:23 Dose: 2 mg Ondansetron HCl (Zofran Injection) 4 mg IVPB Q4H PRN PRN Reason: NAUSEA AND/OR VOMITING Pantoprazole Sodium (Protonix Iv) 40 mg IVPUSH DAILY [facility] Last Admin: 08/10/18 10:49 Dose: 40 mg - Objective Vital Signs: Vital Signs Temperature 98.4 F 08/10/18 14:35 Pulse Rate 77 08/10/18 14:35 Respiratory Rate 20 08/10/18 14:35 Blood Pressure 111/72 08/10/18 14:35 O2 Sat by Pulse Oximetry (%) 96 08/09/18 21:00 Constitutional: Yes: No Distress HENT: Yes: Atraumatic Neck: Yes: Supple Cardiovascular: Yes: Regular Rate and Rhythm Respiratory: Yes: CTA Bilaterally Gastrointestinal: Yes: Normal Bowel Sounds, Tenderness (diffuse...mild) Extremities: Yes: WNL Edema: No Peripheral Pulses WNL: Yes Neurological: Yes: Alert, Oriented Labs: CBC, BMP 08/10/18 06:20 08/10/18 06:20 INR, PTT INR 0.98 (0.83-1.09) 08/03/18 05:00 Problem List - Problems (1) Ketoacidosis in type I diabetes mellitus Assessment/Plan: on insulin, check bgms Code(s): E10.10 - TYPE 1 DIABETES MELLITUS WITH KETOACIDOSIS WITHOUT COMA (2) Hypophosphatemia Code(s): E83.39 - OTHER DISORDERS OF PHOSPHORUS METABOLISM (3) Hypokalemia Code(s): E87.6 - HYPOKALEMIA (4) Abdominal pain Assessment/Plan: on clear liquid diet prn pain meds repeating ct scan Code(s): R10.9 - UNSPECIFIED ABDOMINAL PAIN
[2018-08-11] MEDS: MORPHINE SULFATE 2 MG/ML VIAL IVPUSH PRN (03:57)
[2018-08-11] MEDS: INSULIN SLIDING SCALE (NOVOLOG) 1 VIAL SQ SCH ×4 (06:05→21:38)
[2018-08-11] MEDS: INSULIN (LEVEMIR) 100 UNITS/ML UNITS SQ SCH (06:07)
[2018-08-11] MEDS ORDERED: MORPHINE SULFATE 2 MG/ML VIAL IM PRN (08:36)
--- NOTE | 2018-08-11 08:46 | PN ---
Progress Note (short form) - Note Progress Note: Patient resting comfortably in bed. States she still has abdominal pain and nothing can stop it! RN states she is adamant about getting her Morphine every 4 hours. Despite above complaint, he abd is completely soft/benign on exam. She is tolerating PO clears. OOB and ambulating unassisted. Voiding sponataneously. States she had 1 bout of diarrhea yesterday. Denies n/v/f/c, CP, palpitations, SOB or PINTO. Last Vital Signs Temp Pulse Resp BP Pulse Ox 97.9 F 72 20 130/76 96 08/11/18 05:32 08/11/18 05:32 08/11/18 05:32 08/11/18 05:32 08/10/18 21:00 CBC, BMP 08/10/18 06:20 08/10/18 06:20 Gen: nad ABD: soft. benign. bs x4. no rebound/guarding/rigidty LE: soft bilat. nt Problem List - Problems (1) Abdominal pain Assessment/Plan: 48 yo female with abd pain unknown etiology. Tolerating PO diet. f/u official CT scan, if negative study can advance to regular diet Morphine dc'd Tordol 30mg IM Q8hrs prn Cont OOB and ambulate No surgical intervention planned. Cont care per medicine Tight glycemic control Above discussed with Dr. Griffith and agrees. Code(s): R10.9 - UNSPECIFIED ABDOMINAL PAIN
[2018-08-11] MEDS: KETOROLAC TROMETHAMINE 30 MG/1 ML VIAL IM PRN ×3 (09:15→22:34)
[2018-08-11] MEDS: HEPARIN NA (PORCINE) 5,000 UNITS/ML 1ML VIAL SQ SCH ×2 (09:15→21:38)
[2018-08-11] MEDS: PANTOPRAZOLE SODIUM 40 MG VIAL IVPUSH SCH (09:16)
--- NOTE | 2018-08-11 12:43 | PN ---
Progress Note, Physician - Current Medication List Current Medications: Active Medications Acetaminophen (Tylenol -) 650 mg PO Q6H PRN PRN Reason: PAIN 1-3 Last Admin: 08/05/18 22:32 Dose: 650 mg Heparin Sodium (Porcine) (Heparin -) 5,000 unit SQ BID [facility] Last Admin: 08/11/18 09:15 Dose: 5,000 unit Insulin Aspart (Novolog Vial Sliding Scale -) 1 vial SQ TIDAC [facility]; Protocol Last Admin: 08/11/18 06:05 Dose: 5 units Insulin Aspart (Novolog Vial Sliding Scale -) 1 vial SQ HS [facility]; Protocol Last Admin: 08/10/18 21:52 Dose: 2 units Insulin Detemir (Levemir Vial) 8 units SQ AM [facility] Last Admin: 08/11/18 06:07 Dose: 8 unit Ketorolac Tromethamine (Toradol Injection -) 30 mg IM Q6H PRN PRN Reason: PAIN LEVEL 1-5 Stop: 08/16/18 08:42 Last Admin: 08/11/18 09:15 Dose: 30 mg Ondansetron HCl (Zofran Injection) 4 mg IVPB Q4H PRN PRN Reason: NAUSEA AND/OR VOMITING Pantoprazole Sodium (Protonix Iv) 40 mg IVPUSH DAILY [facility] Last Admin: 08/11/18 09:16 Dose: Not Given - Objective Vital Signs: Vital Signs Temperature 98.0 F 08/11/18 10:00 Pulse Rate 70 08/11/18 10:00 Respiratory Rate 20 08/11/18 10:00 Blood Pressure 148/69 08/11/18 10:00 O2 Sat by Pulse Oximetry (%) 94 L 08/11/18 09:00 Constitutional: Yes: Anxious HENT: Yes: Atraumatic Neck: Yes: Supple Cardiovascular: Yes: Regular Rate and Rhythm Respiratory: Yes: CTA Bilaterally Gastrointestinal: Yes: Normal Bowel Sounds Extremities: Yes: WNL Edema: No Peripheral Pulses WNL: Yes Neurological: Yes: Alert, Oriented Labs: CBC, BMP 08/10/18 06:20 08/10/18 06:20 INR, PTT INR 0.98 (0.83-1.09) 08/03/18 05:00 Problem List - Problems (1) Ketoacidosis in type I diabetes mellitus Assessment/Plan: on insulin, check bgms Code(s): E10.10 - TYPE 1 DIABETES MELLITUS WITH KETOACIDOSIS WITHOUT COMA (2) Hypophosphatemia Assessment/Plan: replace Code(s): E83.39 - OTHER DISORDERS OF PHOSPHORUS METABOLISM (3) Hypokalemia Assessment/Plan: replaced Code(s): E87.6 - HYPOKALEMIA (4) Abdominal pain Assessment/Plan: on clear liquid diet prn pain meds repeating ct scan Code(s): R10.9 - UNSPECIFIED ABDOMINAL PAIN
[2018-08-11] MEDS ORDERED: INSULIN (NOVOLOG) ASPART 100 UNITS/ML 10ML VIAL ONE ×2 (12:44→16:52)
--- NOTE | 2018-08-11 15:08 | PN ---
Progress Note, Physician History of Present Illness: still with abd pain but comfortable - Current Medication List Current Medications: Active Medications Acetaminophen (Tylenol -) 650 mg PO Q6H PRN PRN Reason: PAIN 1-3 Last Admin: 08/05/18 22:32 Dose: 650 mg Heparin Sodium (Porcine) (Heparin -) 5,000 unit SQ BID [facility] Last Admin: 08/11/18 09:15 Dose: 5,000 unit Insulin Aspart (Novolog Vial Sliding Scale -) 1 vial SQ TIDAC [facility]; Protocol Last Admin: 08/11/18 12:45 Dose: 3 units Insulin Aspart (Novolog Vial Sliding Scale -) 1 vial SQ HS [facility]; Protocol Last Admin: 08/10/18 21:52 Dose: 2 units Insulin Detemir (Levemir Vial) 8 units SQ AM [facility] Last Admin: 08/11/18 06:07 Dose: 8 unit Ketorolac Tromethamine (Toradol Injection -) 30 mg IM Q6H PRN PRN Reason: PAIN LEVEL 1-5 Stop: 08/16/18 08:42 Last Admin: 08/11/18 09:15 Dose: 30 mg Ondansetron HCl (Zofran Injection) 4 mg IVPB Q4H PRN PRN Reason: NAUSEA AND/OR VOMITING Pantoprazole Sodium (Protonix Iv) 40 mg IVPUSH DAILY [facility] Last Admin: 08/11/18 09:16 Dose: Not Given - Objective Vital Signs: Vital Signs Temperature 98.0 F 08/11/18 10:00 Pulse Rate 70 08/11/18 10:00 Respiratory Rate 20 08/11/18 10:00 Blood Pressure 148/69 08/11/18 10:00 O2 Sat by Pulse Oximetry (%) 94 L 08/11/18 09:00 Constitutional: Yes: Calm, Mild Distress Cardiovascular: Yes: Regular Rate and Rhythm Respiratory: Yes: Regular, CTA Bilaterally Gastrointestinal: Yes: Normal Bowel Sounds, Soft Musculoskeletal: Yes: WNL Extremities: Yes: WNL Neurological: Yes: Alert, Oriented Psychiatric: Yes: Alert, Oriented Labs: CBC, BMP 08/10/18 06:20 08/10/18 06:20 INR, PTT INR 0.98 (0.83-1.09) 08/03/18 05:00 Assessment/Plan Diabetic Ketoacidosis Severe Metabolic Acidosis Acute Kidney Injury HTN Hyperlipidemia h/o CVA Noncompliance abd pain plan continue current mgmt imaging studies noted if patient continues to have pain will consider starting abx tomorrow
[2018-08-11] MEDS: ACETAMINOPHEN 325 MG TABLET (FP) PO PRN (19:40)
[2018-08-12] MEDS: KETOROLAC TROMETHAMINE 30 MG/1 ML VIAL IM PRN ×4 (04:37→19:55)
[2018-08-12] MEDS: INSULIN (LEVEMIR) 100 UNITS/ML UNITS SQ SCH (07:08)
[2018-08-12] MEDS: INSULIN SLIDING SCALE (NOVOLOG) 1 VIAL SQ SCH ×4 (07:22→21:33)
[2018-08-12] MEDS ORDERED: INSULIN (LEVEMIR) 100 UNITS/ML UNITS SQ SCH (08:04)
--- NOTE | 2018-08-12 08:23 | PN ---
Progress Note (short form) - Note Progress Note: Surgery Patient resting comfortably in bed. She states her abdominal pain is still 10/ 10 despite being up in bed comfortably, tolerating her regular diet and ambulating without assistance. We changed her morphine to toradol yesterday and the nurse reports she remains comfortable and her symptoms are unchanged. She Denies n/v/f/c, CP, palpitations, SOB or PINTO. Vital Signs Temp 98.1 F 08/12/18 05:55 Pulse 65 08/12/18 05:55 Resp 20 08/12/18 05:55 BP 135/71 08/12/18 05:55 Pulse Ox 96 08/11/18 21:00 Intake & Output 08/11/18 08/11/18 08/12/18 11:59 23:59 11:59 Intake Total 850 Balance 850 Weight 146 lb 2 oz 141 lb 1 oz Intake: Oral 850 Other: Voiding Method Toilet Toilet # Unmeasured Voids Void 3 2 Bowel Movement No No # Bowel Movements 0 Weight Measurement Method Built in Bedscale Standing Scale Gen: A&Ox3, NAD Resp: unlabored on RA ABD: soft. benign. ND. no rebound/guarding/rigidty LE: soft bilat. nt Abdominal CT: Small bowel wall thickening in pelvis of unclear etiology, Interval development of concentric wall edema noted involving the colon consistent with colitis Problem List - Problems (1) Abdominal pain Assessment/Plan: 48 yo female with abd pain unknown etiology. Tolerating PO diet and resting comfortably. No surgical intervention indicated. 1) F/u with PCP as outpatient 2) F/u with GI for further outpatient work up 3) OOB as tolerated 4) Tight glycemic control 5) d/c planning per medical team 6) re consult surgery PRN Evaluation and plan discussed with Dr Griffith Code(s): R10.9 - UNSPECIFIED ABDOMINAL PAIN
[2018-08-12] MEDS ORDERED: morphine SULFATE 4 MG/ML VIAL ONE (09:33)
[2018-08-12] MEDS ORDERED: MORPHINE SULFATE 2 MG/ML VIAL IM ONE (09:45)
--- NOTE | 2018-08-12 09:48 | RAPID ---
Physical Examination Vital Signs: Vital Signs Temperature 98.1 F 08/12/18 05:55 Pulse Rate 65 08/12/18 05:55 Respiratory Rate 20 08/12/18 05:55 Blood Pressure 135/71 08/12/18 05:55 O2 Sat by Pulse Oximetry (%) 96 08/11/18 21:00 Labs: CBC, BMP 08/10/18 06:20 08/10/18 06:20 Rapid Response - Rapid Response Assessment: Rapid response called at 9:20 am Aug 12, 2018 Code gibbs called 9:22 am Latest vitals: 148/49 Pulse 95 O2 SAt 98% Blood glucose 419 NIHSS Stroke scale 10 points. Suspected CVA - Suspected CVA Exam Time (Code Gibbs Time): 09:22 CT Stroke ordered: Yes Stat "Code Gibbs" Consult to Neurology called: Yes Last Known Well (Date): 08/12/18 Last Known Well (Time): 09:19 Symptom Discovery (Date): 08/12/18 Symptom Discovery (Time): 09:22
[2018-08-12] MEDS: PANTOPRAZOLE SODIUM 40 MG VIAL IVPUSH SCH ×2 (10:01→17:06)
--- NOTE | 2018-08-12 11:36 | CONSULT ---
Consult - text type - Consultation Consultation Note: Neurology History of Present Illness: 48-year-old woman with a history of IDDM, frequent episodes of DKA, HTN, CVA, HLD is brought into the ER by her fianc (patient in wheelchair) with history of nausea/vomiting/lethargy. Patient began vomiting approximately 24 hours prior to presentation; frequency since then was unclear. Reportedly he had found the patient lethargic with vomitus in bed. She was admitted for further evaluation and had elevated FS and being managed medically. This AM, arnoldo cummings called as patient with reported LUE and LLE weakness. Seen by me at bedside and reported pain preventing further movement, lurched to the L and with nausea as well as vomiting. Per resident and nurse, glucose still elevated > 400 this AM. Patient poor historian during encounter. Patient sent down to CT, no acute changes. Corresponded with resident, asked for MRI brain. Reached out to NSGY at [facility] in the event transfer would be needed. MRI was also completed and did not show acute changes. Resident reported seeing movement of L side while at radiology. There was prior R MCA infarct that was noted and likely recredescence due to underlying metabolic derangements. Of note, she is not on ASA or Statin for unclear reason. 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: CVA (right MCA), Migraine Gastrointestinal: Yes: Other (Gastroparesis) ...LMP: 04/14/13 Musculoskeletal: Yes: Chronic low back pain Endocrine: Yes: Diabetes Mellitus - Past Surgical History Past Surgical History: Yes: Cholecystectomy - Smoking History Smoking history: Current every day smoker Have you smoked in the past 12 months: Yes Aproximately how many cigarettes per day: 8 - Alcohol/Substance Use Hx Alcohol Use: No History of Substance Use: reports: None - Social History ADL: Independent History of Recent Travel: No Home Medications - Allergies Allergies/Adverse Reactions: Allergies Allergy/AdvReac Type Severity Reaction Status Date / Time No Known Allergies Allergy Verified 06/16/18 22:40 Active Medications Acetaminophen (Tylenol -) 650 mg PO Q6H PRN PRN Reason: PAIN 1-3 Last Admin: 08/11/18 19:40 Dose: 650 mg Aspirin (Asa -) 81 mg PO DAILY [facility] Atorvastatin Calcium (Lipitor -) 40 mg PO DAILY [facility] Insulin Aspart (Novolog Vial Sliding Scale -) 1 vial SQ HS [facility]; Protocol Last Admin: 08/11/18 21:38 Dose: 5 units Insulin Aspart (Novolog Vial Sliding Scale -) 1 vial SQ TIDAC [facility]; Protocol Last Admin: 08/12/18 10:44 Dose: 12 units Insulin Detemir (Levemir Vial) 12 units SQ AM [facility] Ketorolac Tromethamine (Toradol Injection -) 30 mg IM Q6H PRN PRN Reason: PAIN LEVEL 1-5 Stop: 08/16/18 08:42 Last Admin: 08/12/18 09:15 Dose: 30 mg Ondansetron HCl (Zofran Injection) 4 mg IVPB Q4H PRN PRN Reason: NAUSEA AND/OR VOMITING Pantoprazole Sodium (Protonix Iv) 40 mg IVPUSH DAILY [facility] Last Admin: 08/12/18 10:01 Dose: Not Given Family Disease History - Family Disease History Family Disease History: Heart Disease: Father (cad) Physical Examination Vital Signs Period Temp Pulse Resp BP Sys/Rapp Pulse Ox Last 24 Hr 98.1 F-98.3 F 65-74 19-20 135-135/71-79 96 Constitutional: Yes: No Distress HENT: Yes: Atraumatic Neck: Yes: Supple Cardiovascular: Yes: Regular Rate and Rhythm Respiratory: Yes: CTA Bilaterally Gastrointestinal: Yes: Normal Bowel Sounds Extremities: Yes: WNL Edema: No Neurological: Yes: Alert, Oriented, No facial droop, no slurred speech, not participating in confrontation testing, pain limited strength testing, sensation intact to LT CBCD WBC 7.2 K/mm3 (4.0-10.0) 08/10/18 06:20 RBC 3.25 M/mm3 (3.60-5.2) L 08/10/18 06:20 Hgb 9.1 GM/dL (10.7-15.3) L 08/10/18 06:20 Hct 27.6 % (32.4-45.2) L 08/10/18 06:20 MCV 84.9 fl (80-96) 08/10/18 06:20 MCHC 33.1 g/dl (32.0-36.0) 08/10/18 06:20 RDW 17.2 % (11.6-15.6) H 08/10/18 06:20 Plt Count 393 K/MM3 (134-434) D 08/10/18 06:20 MPV 7.6 fl (7.5-11.1) 08/10/18 06:20 CMP Sodium 140 mmol/L (136-145) 08/10/18 06:20 Potassium 3.6 mmol/L (3.5-5.1) 08/10/18 06:20 Chloride 106 mmol/L (98-107) 08/10/18 06:20 Carbon Dioxide 27 mmol/L (21-32) 08/10/18 06:20 Anion Gap 8 MMOL/L (8-16) 08/10/18 06:20 BUN 3 mg/dL (7-18) L 08/10/18 06:20 Creatinine 0.5 mg/dL (0.55-1.3) L 08/10/18 06:20 Creat Clearance w eGFR > 60 (>60) 08/10/18 06:20 Random Glucose 403 mg/dL (74-106) H* 08/10/18 06:20 Calcium 7.6 mg/dL (8.5-10.1) L 08/10/18 06:20 Total Bilirubin 0.3 mg/dL (0.2-1) 08/10/18 06:20 AST 6 U/L (15-37) L 08/10/18 06:20 ALT 9 U/L (13-61) L 08/10/18 06:20 Alkaline Phosphatase 151 U/L (45-117) H 08/10/18 06:20 Total Protein 5.0 g/dl (6.4-8.2) L 08/10/18 06:20 Albumin 2.0 g/dl (3.4-5.0) L 08/10/18 06:20 CARDIAC ENZYMES Creatine Kinase 101 U/L (26-192) 08/03/18 05:21 Troponin I < 0.02 ng/ml (0.00-0.05) 08/03/18 05:21 Plan: 48-year-old woman with a history of IDDM, frequent episodes of DKA, HTN, CVA, HLD is brought into the ER by her fianc (patient in wheelchair) with history of nausea/vomiting/lethargy. Patient began vomiting approximately 24 hours prior to presentation; frequency since then was unclear. Reportedly he had found the patient lethargic with vomitus in bed. She was admitted for further evaluation and had elevated FS and being managed medically. This AM, arnoldo cummings called as patient with reported LUE and LLE weakness. Seen by me at bedside and reported pain preventing further movement, lurched to the L and with nausea as well as vomiting. Per resident and nurse, glucose still elevated > 400 this AM. Patient poor historian during encounter. Patient sent down to CT, no acute changes. Corresponded with resident, asked for MRI brain. Reached out to NSGY at [facility] in the event transfer would be needed. MRI was also completed and did not show acute changes. Resident reported seeing movement of L side while at radiology. There was prior R MCA infarct that was noted and likely recredescence due to underlying metabolic derangements. Of note, she is not on ASA or Statin for unclear reason. Recommend starting both if no contraindications. Monitor bp, maintain normotensive range. Tigher glycemic control needed, insulin, hydration, continued medical optimization. Physical therapy as tolerated, DVT ppx. Critical care 35 mins.
--- NOTE | 2018-08-12 12:24 | EKG ---
Test Reason : Blood Pressure : / mmHG Vent. Rate : 078 BPM Atrial Rate : 078 BPM P-R Int : 108 ms QRS Dur : 084 ms QT Int : 382 ms P-R-T Axes : 028 047 018 degrees QTc Int : 435 ms SINUS RHYTHM WITH SHORT WI OTHERWISE NORMAL ECG WHEN COMPARED WITH ECG OF 03-AUG-2018 09:03, VENT. RATE HAS DECREASED BY 38 BPM T WAVE INVERSION NO LONGER EVIDENT IN INFERIOR LEADS Confirmed by DEBORAH ALONSO, KAILASH ([id number]) on 08/12/2018 12:23:40 PM Referred By: Natasha DASH Confirmed By:KAILASH CABRERA MD
[2018-08-12] MEDS: ASPIRIN 81 MG CHEWABLE TABLETS PO SCH (12:50)
[2018-08-12 13:30] LABS: CHOLESTEROL 196 mg/dL (50-200); HDL CHOLESTEROL 60 mg/dL (40-60); TRIGLYCERIDES 345 mg/dL (0-150)
--- NOTE | 2018-08-12 14:01 | PN ---
Progress Note, Physician History of Present Illness: all the events noted scan seen no gross findings patient is now awake and alert neuro on case still continues to have abd pain - Current Medication List Current Medications: Active Medications Acetaminophen (Tylenol -) 650 mg PO Q6H PRN PRN Reason: PAIN 1-3 Last Admin: 08/11/18 19:40 Dose: 650 mg Aspirin (Asa -) 81 mg PO DAILY [facility] Last Admin: 08/12/18 12:50 Dose: 81 mg Atorvastatin Calcium (Lipitor -) 40 mg PO HS [facility] Piperacillin Sod/Tazobactam (Sod 3.375 gm/ Dextrose) 50 mls @ 100 mls/hr IVPB Q8H-IV [facility]; Protocol Insulin Aspart (Novolog Vial Sliding Scale -) 1 vial SQ HS [facility]; Protocol Last Admin: 08/11/18 21:38 Dose: 5 units Insulin Aspart (Novolog Vial Sliding Scale -) 1 vial SQ TIDAC [facility]; Protocol Last Admin: 08/12/18 10:44 Dose: 12 units Insulin Detemir (Levemir Vial) 12 units SQ AM [facility] Ketorolac Tromethamine (Toradol Injection -) 30 mg IM Q6H PRN PRN Reason: PAIN LEVEL 1-5 Stop: 08/16/18 08:42 Last Admin: 08/12/18 09:15 Dose: 30 mg Ondansetron HCl (Zofran Injection) 4 mg IVPB Q4H PRN PRN Reason: NAUSEA AND/OR VOMITING Pantoprazole Sodium (Protonix Iv) 40 mg IVPUSH DAILY [facility] Last Admin: 08/12/18 10:01 Dose: Not Given - Objective Vital Signs: Vital Signs Temperature 97.8 F 08/12/18 09:00 Pulse Rate 70 08/12/18 09:00 Respiratory Rate 20 08/12/18 05:55 Blood Pressure 125/71 08/12/18 09:00 O2 Sat by Pulse Oximetry (%) 95 08/12/18 09:00 Constitutional: Yes: Calm, Moderate Distress Cardiovascular: Yes: Regular Rate and Rhythm Respiratory: Yes: Regular, CTA Bilaterally Gastrointestinal: Yes: Normal Bowel Sounds, Tenderness Musculoskeletal: Yes: WNL Extremities: Yes: WNL Wound/Incision: Yes: Clean/Dry, Well Approximated Neurological: Yes: Alert, Oriented Psychiatric: Yes: Alert, Oriented Labs: CBC, BMP 08/10/18 06:20 08/10/18 06:20 INR, PTT INR 0.98 (0.83-1.09) 08/03/18 05:00 Assessment/Plan Diabetic Ketoacidosis Severe Metabolic Acidosis Acute Kidney Injury HTN Hyperlipidemia h/o CVA Noncompliance abd pain will start patient on empiric abx and monitor if the abd pain improves as the ct scan is inconclusive and patient continues to ahve abd pain and infectious etiology still not r/o though all the work up ahs been negative plan will start on zosyn and see if the patient starts improving hydration
[2018-08-12] MEDS: ONDANSETRON 4 MG/2 ML VIAL IVPB PRN ×2 (14:51→19:38)
[2018-08-12] MEDS ORDERED: PIPERACILLIN/TAZOBACTAM 3.375 GM VIAL IVPB ONE (14:53)
[2018-08-12] MEDS ORDERED: DEXTROSE 5%-WATER - 50 ML IVPB ONE (14:53)
[2018-08-12] MEDS: PIPERACILLIN/TAZOB 3.375 GM 3.375 GM in DEXTROSE 5%-WATER - 50 ML IVPB SCH ×2 (15:04→17:40)
--- NOTE | 2018-08-12 16:53 | PN ---
Progress Note, Physician History of Present Illness: events noted - Current Medication List Current Medications: Active Medications Acetaminophen (Tylenol -) 650 mg PO Q6H PRN PRN Reason: PAIN 1-3 Last Admin: 08/11/18 19:40 Dose: 650 mg Aspirin (Asa -) 81 mg PO DAILY [facility] Last Admin: 08/12/18 12:50 Dose: 81 mg Atorvastatin Calcium (Lipitor -) 40 mg PO HS [facility] Piperacillin Sod/Tazobactam (Sod 3.375 gm/ Dextrose) 50 mls @ 100 mls/hr IVPB Q8H-IV [facility]; Protocol Last Admin: 08/12/18 15:04 Dose: 100 mls/hr Insulin Aspart (Novolog Vial Sliding Scale -) 1 vial SQ HS [facility]; Protocol Last Admin: 08/11/18 21:38 Dose: 5 units Insulin Aspart (Novolog Vial Sliding Scale -) 1 vial SQ TIDAC [facility]; Protocol Last Admin: 08/12/18 16:49 Dose: 12 units Insulin Detemir (Levemir Vial) 12 units SQ AM [facility] Ketorolac Tromethamine (Toradol Injection -) 30 mg IM Q6H PRN PRN Reason: PAIN LEVEL 1-5 Stop: 08/16/18 08:42 Last Admin: 08/12/18 14:15 Dose: 30 mg Ondansetron HCl (Zofran Injection) 4 mg IVPB Q4H PRN PRN Reason: NAUSEA AND/OR VOMITING Last Admin: 08/12/18 14:51 Dose: 4 mg Pantoprazole Sodium (Protonix Iv) 40 mg IVPUSH DAILY [facility] Last Admin: 08/12/18 10:01 Dose: Not Given - Objective Vital Signs: Vital Signs Temperature 98.0 F 08/12/18 14:15 Pulse Rate 77 08/12/18 14:45 Respiratory Rate 20 08/12/18 14:45 Blood Pressure 159/89 08/12/18 14:45 O2 Sat by Pulse Oximetry (%) 95 08/12/18 09:00 Constitutional: Yes: Anxious HENT: Yes: Atraumatic Neck: Yes: Supple Cardiovascular: Yes: Regular Rate and Rhythm Respiratory: Yes: CTA Bilaterally Gastrointestinal: Yes: Normal Bowel Sounds Extremities: Yes: WNL Edema: No Peripheral Pulses WNL: Yes Neurological: Yes: Alert, Oriented Labs: CBC, BMP 08/10/18 06:20 08/10/18 06:20 INR, PTT INR 0.98 (0.83-1.09) 08/03/18 05:00 Problem List - Problems (1) Ketoacidosis in type I diabetes mellitus Assessment/Plan: on insulin, check bgms Code(s): E10.10 - TYPE 1 DIABETES MELLITUS WITH KETOACIDOSIS WITHOUT COMA (2) Hypophosphatemia Assessment/Plan: replaced Code(s): E83.39 - OTHER DISORDERS OF PHOSPHORUS METABOLISM (3) Hypokalemia Assessment/Plan: replaced Code(s): E87.6 - HYPOKALEMIA (4) Abdominal pain Assessment/Plan: on soft diet Code(s): R10.9 - UNSPECIFIED ABDOMINAL PAIN Assessment/Plan pt is ambulating well in all evnts and studies noted dc planning for tomorrow
[2018-08-12] MEDS ORDERED: ATORVASTATIN CA 40 MG TABLET (FP) PO SCH (22:00)
--- NOTE | 2018-08-12 22:57 | HOSP ---
Subjective - Review of Symptoms Events since last encounter: CAlled by RN to examine patient due to an unwitnessed fall after using the bathroom where she hit left occipital part of her head. On exam, she is neurologically intact, except decreased strength in LUE. There is no obvious trauma to head and no palpable masses. Pt encouraged to call for assistance with ambulation and appliy ice pack to affected area. Physical Examination Vital Signs: Vital Signs Temperature 99.4 F 08/12/18 18:00 Pulse Rate 94 H 08/12/18 18:00 Respiratory Rate 20 08/12/18 18:00 Blood Pressure 156/85 08/12/18 18:00 O2 Sat by Pulse Oximetry (%) 95 08/12/18 09:00 Labs: CBC, BMP 08/10/18 06:20 08/10/18 06:20
[2018-08-13] MEDS: ONDANSETRON 4 MG/2 ML VIAL IVPB PRN ×3 (00:39→14:07)
[2018-08-13] MEDS ORDERED: DEXTROSE 5%-WATER - 50 ML IVPB ONE ×2 (01:50→09:09)
[2018-08-13] MEDS ORDERED: PIPERACILLIN/TAZOBACTAM 3.375 GM VIAL IVPB ONE ×2 (01:50→09:09)
[2018-08-13] MEDS: PIPERACILLIN/TAZOB 3.375 GM 3.375 GM in DEXTROSE 5%-WATER - 50 ML IVPB SCH ×2 (01:52→09:29)
[2018-08-13] MEDS: KETOROLAC TROMETHAMINE 30 MG/1 ML VIAL IM PRN ×3 (01:53→14:07)
[2018-08-13] MEDS: INSULIN SLIDING SCALE (NOVOLOG) 1 VIAL SQ SCH ×3 (06:22→17:32)
--- NOTE | 2018-08-13 09:23 | PN ---
Progress Note (short form) - Note Progress Note: Neurology History of Present Illness: 48-year-old woman with a history of IDDM, frequent episodes of DKA, HTN, CVA, HLD is brought into the ER by her fianc (patient in wheelchair) with history of nausea/vomiting/lethargy. Patient began vomiting approximately 24 hours prior to presentation; frequency since then was unclear. Reportedly he had found the patient lethargic with vomitus in bed. She was admitted for further evaluation and had elevated FS and being managed medically. 08/12 AM, arnoldo cummings called as patient with reported LUE and LLE weakness. Seen by me at bedside and reported pain preventing further movement, lurched to the L and with nausea as well as vomiting. Per resident and nurse, glucose elevated > 400. Patient poor historian during encounter. Patient sent down to CT, no acute changes. Corresponded with resident, asked for MRI brain. Reached out to NSGY at [facility] in the event transfer would be needed. MRI was also completed and did not show acute changes. Resident reported seeing movement of L side while at radiology. There was prior R MCA infarct that was noted and likely recredescence due to underlying metabolic derangements. Of note, she is not on ASA or Statin for unclear reason which were started. Later yesterday patient reported having seizure like activity, called by resident, EEG ordered and was negative. Would not add seizure medication at this time. Overnight, she reported "fall" though unwitnessed and spoke with nursing staff who believed bed alarm was taken off and patient may have attention seeking behavior. During my encounter, remains labile in emotions and somatic symptoms. Reassured her that all imaging has been negative and without acute changes. Home Medications - Allergies Allergies/Adverse Reactions: Allergies Allergy/AdvReac Type Severity Reaction Status Date / Time No Known Allergies Allergy Verified 06/16/18 22:40 Active Medications Acetaminophen (Tylenol -) 650 mg PO Q6H PRN PRN Reason: PAIN 1-3 Last Admin: 08/11/18 19:40 Dose: 650 mg Aspirin (Asa -) 81 mg PO DAILY [facility] Last Admin: 08/12/18 12:50 Dose: 81 mg Atorvastatin Calcium (Lipitor -) 40 mg PO HS [facility] Last Admin: 08/12/18 21:32 Dose: 40 mg Piperacillin Sod/Tazobactam (Sod 3.375 gm/ Dextrose) 50 mls @ 100 mls/hr IVPB Q8H-IV [facility]; Protocol Last Admin: 08/13/18 01:52 Dose: 100 mls/hr Insulin Aspart (Novolog Vial Sliding Scale -) 1 vial SQ HS [facility]; Protocol Last Admin: 08/12/18 21:33 Dose: 2 units Insulin Aspart (Novolog Vial Sliding Scale -) 1 vial SQ TIDAC [facility]; Protocol Last Admin: 08/13/18 06:22 Dose: 12 units Insulin Detemir (Levemir Vial) 12 units SQ AM [facility] Last Admin: 08/13/18 06:22 Dose: 12 units Ketorolac Tromethamine (Toradol Injection -) 30 mg IM Q6H PRN PRN Reason: PAIN LEVEL 1-5 Stop: 08/16/18 08:42 Last Admin: 08/13/18 07:56 Dose: 30 mg Ondansetron HCl (Zofran Injection) 4 mg IVPB Q4H PRN PRN Reason: NAUSEA AND/OR VOMITING Last Admin: 08/13/18 07:56 Dose: 4 mg Pantoprazole Sodium (Protonix Iv) 40 mg IVPUSH DAILY [facility] Last Admin: 08/12/18 17:06 Dose: 40 mg Physical Examination Vital Signs Temperature 98.8 F 08/13/18 07:17 Pulse Rate 87 08/13/18 07:17 Respiratory Rate 18 08/13/18 07:17 Blood Pressure 141/83 08/13/18 07:17 O2 Sat by Pulse Oximetry (%) 95 08/12/18 09:00 Constitutional: Yes: No Distress HENT: Yes: Atraumatic Neck: Yes: Supple Cardiovascular: Yes: Regular Rate and Rhythm Respiratory: Yes: CTA Bilaterally Gastrointestinal: Yes: Normal Bowel Sounds Extremities: Yes: WNL Edema: No Neurological: Yes: Alert, Oriented, No facial droop, no slurred speech, not participating in confrontation testing, pain limited strength testing, sensation intact to LT CBCD WBC 7.2 K/mm3 (4.0-10.0) 08/10/18 06:20 RBC 3.25 M/mm3 (3.60-5.2) L 08/10/18 06:20 Hgb 9.1 GM/dL (10.7-15.3) L 08/10/18 06:20 Hct 27.6 % (32.4-45.2) L 08/10/18 06:20 MCV 84.9 fl (80-96) 08/10/18 06:20 MCHC 33.1 g/dl (32.0-36.0) 08/10/18 06:20 RDW 17.2 % (11.6-15.6) H 08/10/18 06:20 Plt Count 393 K/MM3 (134-434) D 08/10/18 06:20 MPV 7.6 fl (7.5-11.1) 08/10/18 06:20 CMP Sodium 140 mmol/L (136-145) 08/10/18 06:20 Potassium 3.6 mmol/L (3.5-5.1) 08/10/18 06:20 Chloride 106 mmol/L (98-107) 08/10/18 06:20 Carbon Dioxide 27 mmol/L (21-32) 08/10/18 06:20 Anion Gap 8 MMOL/L (8-16) 08/10/18 06:20 BUN 3 mg/dL (7-18) L 08/10/18 06:20 Creatinine 0.5 mg/dL (0.55-1.3) L 08/10/18 06:20 Creat Clearance w eGFR > 60 (>60) 08/10/18 06:20 Random Glucose 403 mg/dL (74-106) H* 08/10/18 06:20 Calcium 7.6 mg/dL (8.5-10.1) L 08/10/18 06:20 Total Bilirubin 0.3 mg/dL (0.2-1) 08/10/18 06:20 AST 6 U/L (15-37) L 08/10/18 06:20 ALT 9 U/L (13-61) L 08/10/18 06:20 Alkaline Phosphatase 151 U/L (45-117) H 08/10/18 06:20 Total Protein 5.0 g/dl (6.4-8.2) L 08/10/18 06:20 Albumin 2.0 g/dl (3.4-5.0) L 08/10/18 06:20 CARDIAC ENZYMES Creatine Kinase 70 U/L (26-192) 08/12/18 16:45 Troponin I < 0.02 ng/ml (0.00-0.05) 08/12/18 16:45 Plan: 48-year-old woman with a history of IDDM, frequent episodes of DKA, HTN, CVA, HLD is brought into the ER by her fianc (patient in wheelchair) with history of nausea/vomiting/lethargy. Patient began vomiting approximately 24 hours prior to presentation; frequency since then was unclear. Reportedly he had found the patient lethargic with vomitus in bed. She was admitted for further evaluation and had elevated FS and being managed medically. 08/12 AM, arnoldo cummings called as patient with reported LUE and LLE weakness. Seen by me at bedside and reported pain preventing further movement, lurched to the L and with nausea as well as vomiting. Per resident and nurse, glucose elevated > 400. Patient poor historian during encounter. Patient sent down to CT, no acute changes. Corresponded with resident, asked for MRI brain. Reached out to NSGY at [facility] in the event transfer would be needed. MRI was also completed and did not show acute changes. Resident reported seeing movement of L side while at radiology. There was prior R MCA infarct that was noted and likely recredescence due to underlying metabolic derangements. Of note, she is not on ASA or Statin for unclear reason which were started. Later yesterday patient reported having seizure like activity, called by resident, EEG ordered and was negative. Would not add seizure medication at this time. Overnight, she reported "fall" though unwitnessed and spoke with nursing staff who believed bed alarm was taken off and patient may have attention seeking behavior. During my encounter, remains labile in emotions and somatic symptoms. Reassured her that all imaging has been negative and without acute changes. Possible for discharge today per nurse public affairs manager. Neurologically stable without new deficits.
[2018-08-13] MEDS: PANTOPRAZOLE SODIUM 40 MG VIAL IVPUSH SCH (09:29)
[2018-08-13] MEDS: ASPIRIN 81 MG CHEWABLE TABLETS PO SCH (09:29)
[2018-08-13] MEDS ORDERED: INSULIN (NOVOLOG) ASPART 100 UNITS/ML 10ML VIAL ONE ×2 (10:57→17:31)
--- NOTE | 2018-08-13 11:30 | DS ---
Physical Examination Vital Signs: Vital Signs Temperature 97.9 F 08/13/18 11:09 Pulse Rate 76 08/13/18 11:09 Respiratory Rate 18 08/13/18 11:09 Blood Pressure 134/76 08/13/18 11:09 O2 Sat by Pulse Oximetry (%) 95 08/12/18 09:00 Labs: CBC, BMP 08/10/18 06:20 08/10/18 06:20 Discharge Summary Reason For Visit: DKA Current Active Problems Abdominal pain (Acute) Hypophosphatemia (Acute) Ketoacidosis in type I diabetes mellitus (Acute) Condition: Critical - Instructions Diet, Activity, Other Instructions: see your pmd on friday next week Referrals: Doreen Tripp [Primary Care Provider] - - Home Medications Comprehensive Discharge Medication List: Ambulatory Orders Insulin Detemir [Levemir Flextouch] 25 unit SQ DAILY #3 insuln.pen 06/20/18 Amoxicillin/Potassium Clav [Augmentin 875-125 Tablet] 1 each PO BID #14 tablet 08/13/18 Aspirin 81 mg PO DAILY #30 tab.chew 08/13/18 Aspirin [ASA -] 81 mg PO DAILY tab.chew 08/13/18 Atorvastatin Ca [Lipitor] 40 mg PO HS #30 tablet 08/13/18 cleared to be dc by neuro
[2018-08-13 12:25] LABS: BASO % 0.3 % (0-2.0); HEMATOCRIT 28.1 % (32.4-45.2); HEMOGLOBIN 9.5 GM/dL (10.7-15.3); LYMPH % 19.7 % (8-40); MCH 28.1 pg (25.7-33.7); MCHC 33.8 g/dl (32.0-36.0); MEAN CELL VOLUME 83.1 fl (80-96); MEAN PLT VOLUME 6.9 fl (7.5-11.1); MONO % 6.7 % (3.8-10.2); NEUT % 73.3 % (42.8-82.8); PLATELET COUNT 635 K/MM3 (134-434); RBC 3.38 M/mm3 (3.60-5.2); WHITE BLOOD COUNT 9.6 K/mm3 (4.0-10.0)
[2018-08-13 12:53] LABS: ALBUMIN 2.4 g/dl (3.4-5.0); ALK PHOS 176 U/L (45-117); ANION GAP 9 MMOL/L (8-16); BILIRUBIN,TOTAL 0.2 mg/dL (0.2-1); BLOOD UREA NITROGEN 14 mg/dL (7-18); CALCIUM 8.6 mg/dL (8.5-10.1); CHLORIDE 103 mmol/L (98-107); CO2 27 mmol/L (21-32); CREATININE 0.7 mg/dL (0.55-1.3); GLUCOSE,RANDOM 176 mg/dL (74-106); SGOT/AST 8 U/L (15-37); SGPT/ALT 11 U/L (13-61); SODIUM 139 mmol/L (136-145); TOT PROT 6.2 g/dl (6.4-8.2)
--- NOTE | 2018-08-13 16:19 | PN ---
Progress Note, Physician - Current Medication List Current Medications: Active Medications Acetaminophen (Tylenol -) 650 mg PO Q6H PRN PRN Reason: PAIN 1-3 Last Admin: 08/11/18 19:40 Dose: 650 mg Aspirin (Asa -) 81 mg PO DAILY [facility] Last Admin: 08/13/18 09:29 Dose: 81 mg Atorvastatin Calcium (Lipitor -) 40 mg PO HS [facility] Last Admin: 08/12/18 21:32 Dose: 40 mg Piperacillin Sod/Tazobactam (Sod 3.375 gm/ Dextrose) 50 mls @ 100 mls/hr IVPB Q8H-IV [facility]; Protocol Last Admin: 08/13/18 09:29 Dose: 100 mls/hr Insulin Aspart (Novolog Vial Sliding Scale -) 1 vial SQ HS [facility]; Protocol Last Admin: 08/12/18 21:33 Dose: 2 units Insulin Aspart (Novolog Vial Sliding Scale -) 1 vial SQ TIDAC [facility]; Protocol Last Admin: 08/13/18 11:06 Dose: 3 units Insulin Detemir (Levemir Vial) 12 units SQ AM [facility] Last Admin: 08/13/18 06:22 Dose: 12 units Ketorolac Tromethamine (Toradol Injection -) 30 mg IM Q6H PRN PRN Reason: PAIN LEVEL 1-5 Stop: 08/16/18 08:42 Last Admin: 08/13/18 14:07 Dose: 30 mg Ondansetron HCl (Zofran Injection) 4 mg IVPB Q4H PRN PRN Reason: NAUSEA AND/OR VOMITING Last Admin: 08/13/18 14:07 Dose: 4 mg Pantoprazole Sodium (Protonix Iv) 40 mg IVPUSH DAILY [facility] Last Admin: 08/13/18 09:29 Dose: 40 mg - Objective Vital Signs: Vital Signs Temperature 98.6 F 08/13/18 13:24 Pulse Rate 87 08/13/18 13:24 Respiratory Rate 20 08/13/18 13:24 Blood Pressure 118/70 08/13/18 13:24 O2 Sat by Pulse Oximetry (%) 95 08/12/18 09:00 Labs: CBC, BMP 08/13/18 11:45 08/13/18 11:45 INR, PTT INR 0.98 (0.83-1.09) 08/03/18 05:00
[2018-08-13] MEDS ORDERED: AMOX TR/POT CLAV 875MG/125MG TABLETS (FP) PO SCH (17:30)
[2018-08-13 17:36] VITALS: BP 108/67; PULSE 77; TEMP 97.9
[2018-08-14 00:05] VITALS: BMI 22.8
== END 2018-08-13 18:17 | disposition home or self-care (01) | DRG 638 ==
LOC: FER 04:14 → JICU 09:51 → J6S 08-04 15:35
PROVIDERS: ADMIT Internal Medicine; ATTEND Internal Medicine
PROC: 06HM33Z Insertion of Infusion Device into Right Femoral Vein, Percutaneous Approach (ICD-10-PCS; 2018-08-03)
PROC: 4A00X4Z Measurement of Central Nervous Electrical Activity, External Approach (ICD-10-PCS; principal; 2018-08-12)
DX: E10.10 Type 1 diabetes mellitus with ketoacidosis without coma (principal); G81.94 Hemiplegia, unspecified affecting left nondominant side; E87.1 Hypo-osmolality and hyponatremia; E87.2 Acidosis; N17.9 Acute kidney failure, unspecified; E87.0 Hyperosmolality and hypernatremia; E83.39 Other disorders of phosphorus metabolism; E87.6 Hypokalemia; R10.9 Unspecified abdominal pain; I10 Essential (primary) hypertension; E78.5 Hyperlipidemia, unspecified; K31.84 Gastroparesis; M54.5 Low back pain; G43.909 Migraine, unspecified, not intractable, without status migrainosus; F17.210 Nicotine dependence, cigarettes, uncomplicated; E87.5 Hyperkalemia; E86.1 Hypovolemia; E10.65 Type 1 diabetes mellitus with hyperglycemia; R13.10 Dysphagia, unspecified; K22.2 Esophageal obstruction; R00.0 Tachycardia, unspecified; K52.9 Noninfective gastroenteritis and colitis, unspecified; D64.9 Anemia, unspecified; W18.39XA Other fall on same level, initial encounter; Y92.230 Patient room in hospital as the place of occurrence of the external cause; D72.829 Elevated white blood cell count, unspecified; Z91.14 Patient's other noncompliance with medication regimen; Z99.3 Dependence on wheelchair; Z86.73 Personal history of transient ischemic attack (TIA), and cerebral infarction without residual deficits; Z79.4 Long term (current) use of insulin
CPT/HCPCS: 36415; 36600; 70450-TC; 70551-TC; 71045-TC-FY; 74176-TC; 80048; 80053; 80061; 81003; 81015; 82009; 82550; 82607; 82746; 82803; 82962; 83605; 83721; 83735; 84100; 84484; 84703; 85025; 85610; 87040; 87086; 93005; 93010; 95816; 97116-GP; 97161-GP; 99283-25; J1644; J3480; J7030; Q9967

== ENCOUNTER 2018-11-18 12:24 | Inpatient (IN) | payer OTHER ==
--- NOTE | 2018-11-18 12:50 | PDOC ---
History of Present Illness - General Chief Complaint: Blood Sugar Problem Stated Complaint: HYPERGLYCEMIA Time Seen by Provider: 11/18/18 12:49 - History of Present Illness Initial Comments: 11/18/18 14:38 Chief complaint: called the ambulance because the patient was unresponsive this morning History of present illness: Nothing is known other than the patient became unresponsive this morning. She is a type I diabetic with frequent hospitalizations for elevated blood sugar/DKA. She is noncompliant with her medications. Review of systems: Patient is unresponsive, unable to respond to questions. is unavailable. Past medical history: Type 1 diabetes, frequent DKA. According to old records, CVA and abdominal surgery Social/family history: It is known that the patient has noncompliant with medications, as a of unreliable behavior. Otherwise there is no information available Physical exam: Unresponsive, cool small breathing. Hypothermic, low blood pressure, tachycardic, respiratory rate is unlabored but O2 sat duration is normal HEENT: Dry mucous membranes otherwise negative Neck supple without bruit mass or nodes Chest clear to P&A bilaterally CV regular 110/m systolic ejection murmur left sternal border without radiation pulses symmetric no JVD or edema Abdomen soft nontender without mass or organomegaly. Large midline scar. Extremities no CCE Skin clear, no rash. Neurological: Cooperation is limited. She is moving all extremities. There is no obvious facial palsy. Tubals are reactive Impression: Recurrent DKA, probably due to medical noncompliance. Rule out reciprocating factors such as infection, acute cardiac event, or acute neurologic event Plan: Reverse acidosis, control of sugar, cardiac neurologic and infection workup. Close monitoring of blood pressure, pH, glucose, and potassium. Past History - Past Medical History Allergies/Adverse Reactions: Allergies Allergy/AdvReac Type Severity Reaction Status Date / Time No Known Allergies Allergy Verified 06/16/18 22:40 Home Medications: Ambulatory Orders Insulin Detemir [Levemir Flextouch] 25 unit SQ DAILY #3 insuln.pen 06/20/18 Amoxicillin/Potassium Clav [Augmentin 875-125 Tablet] 1 each PO BID #14 tablet 08/13/18 Aspirin 81 mg PO DAILY #30 tab.chew 08/13/18 Aspirin [ASA -] 81 mg PO DAILY tab.chew 08/13/18 Atorvastatin Ca [Lipitor] 40 mg PO HS #30 tablet 08/13/18 Anemia: No Asthma: No Cancer: No Cardiac Disorders: No CVA: Yes (JUL 2017) COPD: No CHF: No Dementia: No Diabetes: Yes (IDDM) GI Disorders: Yes (DYSPHAGIA) Disorders: No HTN: No Hypercholesterolemia: Yes Liver Disease: No Seizures: No Thyroid Disease: No - Surgical History Abdominal Surgery: No Appendectomy: No Cardiac Surgery: No Cholecystectomy: Yes (AGE 19) Lung Surgery: No Neurologic Surgery: No Orthopedic Surgery: Yes (L shoulder cyst removed) - Immunization History Td Vaccination: Yes Immunization Up to Date: Yes - Suicide/Smoking/Psychosocial Hx Smoking Status: Yes Smoking History: Unknown if ever smoked Years of Tobacco Use: 15 Have you smoked in the past 12 months: No Number of Cigarettes Smoked Daily: 8 Information on smoking cessation initiated: No 'Breaking Loose' booklet given: 08/03/18 Hx Alcohol Use: No Drug/Substance Use Hx: No Substance Use Type: Marijuana Hx Substance Use Treatment: No *Physical Exam - Vital Signs Last Vital Signs Temp Pulse Resp BP Pulse Ox 129 H 24 H 89/40 L 11/18/18 12:49 11/18/18 12:49 11/18/18 12:49 ED Treatment Course - LABORATORY CBC & Chemistry Diagram: 11/18/18 13:02 11/18/18 13:02 Medical Decision Making - Critical Care Time Total Critical Care Time (minutes): 30 Critical Care Statement: The care of this patient involved high complexity decision making to prevent further life threatening deterioration of the patient 's condition and/or to evaluate & treat vital organ system(s) failure or risk of failure. - Medical Decision Making 11/18/18 14:45 Unresponsive, resumed DKA, limited venous access. 2 IV lines finally started, blood for CBC, chemistries obtained and arterial blood gas drawn. Warming blanket was applied, ICU admission was arranged, the patient was closely monitored. Blood pressure improved to 90/60. 11/18/18 14:49 Laboratories reveal white blood count of 32,000, blood glucose of 1628, large serum acetone, potassium 8.9, ABG 6.85/15/87. *DC/Admit/Observation/Transfer Diagnosis at time of Disposition: Ketoacidosis in type I diabetes mellitus - Discharge Dispostion Condition at time of disposition: Critical Decision to Admit order: Yes - Referrals - Patient Instructions - Post Discharge Activity
[2018-11-18] MEDS ORDERED: SODIUM CHLORIDE 1,000 ML IV STA ×4 (13:20→17:29)
[2018-11-18 13:25] LABS: ALBUMIN 3.3 g/dl (3.4-5.0); ALK PHOS 88 U/L (45-117); BILIRUBIN,TOTAL 1.8 mg/dl (0.2-1); BLOOD UREA NITROGEN 42 mg/dl (7-18); CHLORIDE 93 mmol/L (98-107); CREATININE 2.7 mg/dl (0.55-1.3); POTASSIUM 8.9 mmol/L (3.5-5.1); SGOT/AST 30 U/L (15-37); SGPT/ALT 20 U/L (13-61); SODIUM 128 mmol/L (136-145); TOT PROT 5.8 g/dl (6.4-8.2)
[2018-11-18] MEDS ORDERED: INSULIN REGULAR HUMAN 100 UNITS/ML *VIAL IVPUSH ONE (13:38)
[2018-11-18 13:43] LABS: ANION GAP 29 MMOL/L (8-16); CO2 < 6 mmol/L (21-32)
[2018-11-18 13:45] LABS: GLUCOSE,RANDOM 1628 mg/dl (74-106)
[2018-11-18] MEDS ORDERED: INSULIN REGULAR 100 UNITS in SODIUM CHLORIDE 99 ML IVPB SCH ×2 (13:45→17:30)
[2018-11-18] MEDS ORDERED: INSULIN (NOVOLOG) ASPART 100 UNITS/ML 10ML VIAL ONE (13:49)
--- NOTE | 2018-11-18 14:17 | HP ---
CHIEF COMPLAINT: Unresponsive HISTORY OF PRESENT ILLNESS: 48 year-old female with history of Type I IDDM, frequent admissions for DKA, HTN , HLD, CVA. called EMS this morning when he found patient unresponsive. ER course was notable for: (1) WBC 32k, T95.7, p129, BP 89/40, RR 25 (2) ABG 6.85, 15/87/2.5/88% on unreported FiO2 (3) K 8.9, AG 29, Glu 1628 (4) Acetone large 3+ (5) NS x 2L; bicarb 4.2meq; Novolog 20U; insulin drip started Recent Travel: Unknown PAST MEDICAL HISTORY: Type I IDDM Hypertension Hyperlipidemia CVA PAST SURGICAL HISTORY: Social History: Smoking: current smoker Alcohol: Drugs: Family History: Allergies No Known Allergies Allergy (Verified 06/16/18 22:40) HOME MEDICATIONS: Home Medications Medication Instructions Recorded Insulin Detemir [Levemir Flextouch] 25 unit SQ DAILY #3 insuln.pen 06/20/18 Amoxicillin/Potassium Clav 1 each PO BID #14 tablet 08/13/18 [Augmentin 875-125 Tablet] Aspirin 81 mg PO DAILY #30 tab.chew 08/13/18 Aspirin [ASA -] 81 mg PO DAILY tab.chew 08/13/18 Atorvastatin Ca [Lipitor] 40 mg PO HS #30 tablet 08/13/18 REVIEW OF SYSTEMS: unable to ascertain due to patient's condition PHYSICAL EXAMINATION Vital Signs - 24 hr 11/18/18 11/18/18 11/18/18 12:25 12:49 13:01 Temperature Pulse Rate 108 H Pulse Rate [ 129 H 108 H Right] Respiratory 24 H 24 H 22 H Rate Blood Pressure 72/36 L Blood Pressure 89/40 L 75/45 L [Left Arm] O2 Sat by Pulse 96 Oximetry (%) 11/18/18 11/18/18 13:29 14:07 Temperature 95.7 F L 95.7 F L Pulse Rate Pulse Rate [ 104 H 119 H Right] Respiratory 20 20 Rate Blood Pressure Blood Pressure 79/47 L 77/73 L [Left Arm] O2 Sat by Pulse 98 98 Oximetry (%) GENERAL: Eyes closed, does not follow commands, moaning; withdraws to painful stimuli; skin dry HEAD: Normal with no signs of trauma. EYES: Pupils sluggish to light, right 2mm, left 1mm EARS, NOSE, THROAT: Ears normal, nares patent, oropharynx clear without exudates. Dry mucous membranes. LUNGS: Breath sounds equal, clear HEART: Regular rate and rhythm, S1 and S2 ABDOMEN: Soft, not distended, patient reacts to deep palpation in all quadrants ; well-healed surgical scar; perez in situ, cloudy yellow urine UPPER EXTREMITIES: 2+ pulses, warm, well-perfused. No cyanosis. No clubbing. No peripheral edema. LOWER EXTREMITIES: 2+ pulses, warm, well-perfused. No calf tenderness. No peripheral edema. Laboratory Results - last 24 hr 11/18/18 11/18/18 11/18/18 12:50 12:51 13:02 WBC 32.0 H* RBC 3.40 L Hgb 9.5 L Hct 35.6 MCV 104.8 H D MCH 28.1 MCHC 26.8 L D RDW 17.5 H D Plt Count 389 MPV 10.6 Anticoagulation Therapy O2 Delivery Device Oxygen Flow Rate Vent Mode Vent Rate Mechanical Rate Pressure Support Vent Sodium Potassium Chloride Carbon Dioxide Anion Gap BUN Creatinine Est GFR (CKD-EPI)AfAm Est GFR (CKD-EPI)NonAf Random Glucose 1628 H* Calcium Total Bilirubin AST ALT Alkaline Phosphatase Creatine Kinase Total Protein Albumin Urine Color Urine Appearance Urine pH Urine Protein Urine Glucose (UA) Urine Ketones Urine Blood Urine Nitrite Urine Bilirubin Urine Urobilinogen Ur Leukocyte Esterase Acetone, Qual Positive large 3+ H 11/18/18 11/18/18 11/18/18 13:02 13:02 13:10 WBC RBC Hgb Hct MCV MCH MCHC RDW Plt Count MPV Anticoagulation Therapy No Result Required. O2 Delivery Device No Result Required. Oxygen Flow Rate No Result Required. Vent Mode No Result Required. Vent Rate No Result Required. Mechanical Rate No Result Required. Pressure Support Vent No Result Required. Sodium 128 L Potassium 8.9 H* Chloride 93 L Carbon Dioxide < 6 L Anion Gap 29 H BUN 42 H Creatinine 2.7 H Est GFR (CKD-EPI)AfAm 23.06 Est GFR (CKD-EPI)NonAf 19.89 Random Glucose 1628 H* Calcium 8.0 L Total Bilirubin 1.8 H AST 30 ALT 20 Alkaline Phosphatase 88 Creatine Kinase Total Protein 5.8 L Albumin 3.3 L Urine Color Yellow Urine Appearance Clear Urine pH 5.0 Urine Protein Trace Urine Glucose (UA) 2+ H Urine Ketones 4+ H Urine Blood Negative Urine Nitrite Negative Urine Bilirubin Negative Urine Urobilinogen 0.2 Ur Leukocyte Esterase Negative Acetone, Qual 11/18/18 13:24 WBC RBC Hgb Hct MCV MCH MCHC RDW Plt Count MPV Anticoagulation Therapy O2 Delivery Device Oxygen Flow Rate Vent Mode Vent Rate Mechanical Rate Pressure Support Vent Sodium Potassium Chloride Carbon Dioxide Anion Gap BUN Creatinine Est GFR (CKD-EPI)AfAm Est GFR (CKD-EPI)NonAf Random Glucose Calcium Total Bilirubin AST ALT Alkaline Phosphatase Creatine Kinase 55 Total Protein Albumin Urine Color Urine Appearance Urine pH Urine Protein Urine Glucose (UA) Urine Ketones Urine Blood Urine Nitrite Urine Bilirubin Urine Urobilinogen Ur Leukocyte Esterase Acetone, Qual ASSESSMENT/PLAN 48 year-old female with history of Type I IDDM, frequent admissions for DKA, HTN , HLD, CVA. Admitted for DKA. DKA Sepsis --WBC 32k, T95.7, p129, BP 89/40, RR 25 --ABG 6.85, 15/87/2.5/88% on unreported FiO2 --K 8.9, AG 29, Glu 1628 --in ED, NS x 2L; bicarb 4.2meq; Novolog 20U; insulin drip started --lactic acid pending --sepsis source unclear, panculture, CXR; start vanc and Zosyn; ID consult --strict I&OS DVT prophylaxis: subq heparin Dispo: STAT transfer to ICU. Full code. Visit type - Emergency Visit Emergency Visit: Yes ED Registration Date: 11/18/18 Care time: The patient presented to the Emergency Department on the above date and was hospitalized for further evaluation of their emergent condition. - New Patient This patient is new to me today: Yes Date on this admission: 11/18/18 - Critical Care Critical Care patient: Yes Total Critical Care Time (in minutes): 45 Critical Care Statement: The care of this patient involved high complexity decision making to prevent further life threatening deterioration of the patient 's condition and/or to evaluate & treat vital organ system(s) failure or risk of failure.
[2018-11-18 14:23] LABS: ARTERIAL BLD GAS O2 SATURATION 88.9 % (95-98); ARTERIAL BLOOD GAS PCO2 15.5 mmHg (35-45); ARTERIAL BLOOD GAS PO2 87.3 mmHg (80-105)
[2018-11-18 14:24] LABS: CARBOXYHEMOGLOBIN 1.1 % (0-2)
[2018-11-18 14:26] LABS: ARTERIAL BLOOD GAS pH 6.85 (7.35-7.45)
[2018-11-18] MEDS ORDERED: SODIUM BICARBONATE 4.2% 5 MEQ/10 ML DISP.SYRIN IVPUSH ONE ×3 (14:33→16:05)
[2018-11-18] MEDS ORDERED: SODIUM BICARBONATE 8.4% 50 MEQ/50 ML VIAL ONE (14:37)
--- NOTE | 2018-11-18 15:22 | EKG ---
Test Reason : Blood Pressure : / mmHG Vent. Rate : 207 BPM Atrial Rate : 207 BPM P-R Int : 000 ms QRS Dur : 134 ms QT Int : 206 ms P-R-T Axes : 000 120 082 degrees QTc Int : 382 ms NORMAL SINUS RHYTHM RIGHT AXIS DEVIATION hyper acute t waves r/o ischemia, electrolyte abnormalities, drug toxicity or CVA NON-SPECIFIC INTRA-VENTRICULAR CONDUCTION BLOCK NONSPECIFIC T WAVE ABNORMALITY ABNORMAL ECG Confirmed by DEBORAH ALONSO, KAILASH ([id number]) on 11/18/2018 3:22:32 PM Referred By: DR MCKNIGHT Confirmed By:KAILASH CABRERA MD
[2018-11-18] MEDS ORDERED: ALBUTEROL SO4 0.083% IH SOL 2.5 MG/3 ML VIAL.NEB. NEB PRN (15:26)
[2018-11-18] MEDS ORDERED: SODIUM CHLORIDE 1,000 ML IV SCH ×3 (15:30→18:11)
[2018-11-18] MEDS ORDERED: CALCIUM GLUCONATE 10% - 1,000 MG/10 ML VIAL IVPB ONE (15:45)
[2018-11-18] MEDS ORDERED: RAPID SEQUENCE INTUBATION KIT NR ONE (15:57)
[2018-11-18] MEDS ORDERED: SODIUM BICARBONATE 8.4% 50 MEQ/50 ML DISP.SYRIN IVPUSH ONE ×3 (16:05→17:53)
[2018-11-18] MEDS ORDERED: ETOMIDATE 20 MG/10 ML AMPUL IVPUSH ONE (16:07)
[2018-11-18] MEDS ORDERED: ROCURONIUM BROMIDE 50 MG/5 ML VIAL IV ONE (16:08)
[2018-11-18] MEDS ORDERED: MIDAZOLAM HCL 10 MG/10 ML VIAL IVPUSH ONE (16:15)
[2018-11-18] MEDS ORDERED: MIDAZOLAM HCL 2 MG/2 ML SINGLE DOSE VIAL IVPUSH ONE (16:15)
[2018-11-18] MEDS ORDERED: MIDAZOLAM HCL 5 MG/1 ML Single Dose Vial ONE (16:16)
[2018-11-18] MEDS ORDERED: MIDAZOLAM 100 MG/100 ML MG IVPB ONE (16:47)
--- NOTE | 2018-11-18 17:00 | PROC ---
Addendum entered and electronically signed by Nadine Whitt I, RESIDENT 17:06: Mac 3 used Original Note: <Nadine Whitt I - Last Filed: 11/18/18 17:01> Intubation - Intubation Reason for Intubation: Respiratory Insufficiency, Airway Protection (Patient is altered, non responsive), Other (Marked acidosis) Time of Intubation: 04:30 Intubation Method: orotracheal Blade used: Mac (4) Tube Size (cm): 7.5 Tube position confirmed by: Direct visualization, CO2 detector, Chest x-ray, Breath sounds Breath Sounds after Intubation: equal Post Intubation Xray: Yes Remarks: Under direct supervision by Dr Galicia, patient was pre-oxygenated to 100% by face mask in supine position. Vocal cords were visualized with a mac 3 blade ET 7.5 tube was passed into the trachea. Condensation was noted on the tube color change was noted, bilateral breath sounds were heard and patient was noted to be sating at 100%. Tube was positioned and secured at 21cm at the teeth. Chest Xray was ordered. Central Line Insertion Indication: Poor Venous Access, Sepsis, Other (DKA requiring frequent labs) Risks and Benefits Explained: No (Emergency, AMS) Consent on Chart: No Central Line: Triple Lumen Catheter Anesthesia: 1% Lidocaine Sterile Technique: Yes Ultrasound Guided Assistance: Yes Position: Right Internal Jugular Post Insertion: Yes: Chest X-Ray Ordered Sterile Dressing Applied: Yes Remarks: Under supervision of Dr Galicia <Claudy Galicia MD - Last Filed: 11/18/18 17:10> Procedure Note Procedure: I supervised and was present during the entire procedures. Claudy Galicia MD
--- NOTE | 2018-11-18 17:05 | PN ---
Teaching Attending Note Name of Resident: Lashaun Lugo ATTENDING PHYSICIAN STATEMENT I saw and evaluated the patient. I reviewed the resident's note and discussed the case with the resident. I agree with the resident's findings and plan as documented. SUBJECTIVE: Pt seen and examined in the ICU. Briefly, 48yo female with h/o IDDM, multiple hospitalizations for DKA, HTN, Hyperlipidemia, h/o CVA who was admitted with altered mental status and increasing lethargy. Found to be in DKA with anion gap of at least 29, severe metabolic acidosis with pH 6.85, hyperkalemic to 8.9. Pt immediately intubated upon arrival to ICU for lethargy, respiratory distress. EKG with peaked T waves, medially treated. RIJ central line placed emergently as pt with poor access and hypotensive. OBJECTIVE: Vital Signs Period Temp Pulse Resp BP Sys/Rapp Pulse Ox Last 24 Hr 94.8 F-95.7 F 96-129 20-30 72-89/36-73 94-100 Intake & Output 11/15/18 11/16/18 11/17/18 11/18/18 23:59 23:59 23:59 23:59 Intake Total 2005 Output Total 90 Balance 1916 Weight 61.235 kg Gen: initially obtuneded, now intubated, sedated Heart: tachycardic, regular Lung: decreased breath sounds at the bases Abd: soft, nontender Ext: no edema CBC, BMP 11/18/18 13:02 11/18/18 13:02 ABG Results ABG pH 6.85 (7.35-7.45) L* 11/18/18 13:02 ABG pCO2 at Pt Temp 15.5 mmHg (35-45) L 11/18/18 13:02 ABG pO2 at Pt Temp 87.3 mmHg (80-105) 11/18/18 13:02 ABG HCO3 2.5 mmol/L (22-27) L 11/18/18 13:02 ABG O2 Sat (Measured) 88.9 % (95-98) L 11/18/18 13:02 ABG O2 Content 9.6 % vol (15-22) L* 11/18/18 13:02 ABG Base Excess -29.0 meq/l (-2-2) L 11/18/18 13:02 Active Medications Albuterol Sulfate (Ventolin 0.083% Nebulizer Soln -) 1 amp NEB Q4H PRN PRN Reason: SHORTNESS OF BREATH Chlorhexidine Gluconate (Hibiclens For Decolonization -) 1 applic TP HS [facility] Heparin Sodium (Porcine) (Heparin -) 5,000 unit SQ BID [facility] Insulin Human Regular 100 (units/ Sodium Chloride) 100 mls @ 6.12 mls/hr IVPB TITR [facility]; Protocol Last Admin: 11/18/18 14:06 Dose: 0.1 units/kg/hr, 6.12 mls/hr Piperacillin Sod/Tazobactam (Sod 3.375 gm/ Dextrose) 50 mls @ 100 mls/hr IVPB Q8H-IV [facility]; Protocol Piperacillin Sod/Tazobactam (Sod 3.375 gm/ Dextrose) 50 mls @ 100 mls/hr IVPB Q8H-IV [facility] Stop: 11/19/18 17:59 Vancomycin HCl 1,000 mg/ (Dextrose) 250 mls @ 166.667 mls/hr IVPB Q12H [facility]; Protocol Midazolam HCl 100 mg/ Sodium (Chloride) 100 mls @ 1 mls/hr IVPB TITR [facility]; Protocol Sodium Chloride (Normal Saline -) 1,000 mls @ 150 mls/hr IV ASDIR [facility] Mupirocin (Bactroban Ointment (For Decolonization) -) 1 applic NS BID [facility] Stop: 11/23/18 21:59 Vancomycin HCl (Vancomycin (Pre-Docked)) 1,000 mg IVPB Q12H [facility] Stop: 11/19/18 15:46 ASSESSMENT AND PLAN: Diabetic Ketoacidosis Severe Metabolic Acidosis Acute Respiratory Failure Hypovolemic Shock Acute Kidney Injury r/o Sepsis HTN Hyperlipidemia Noncompliance - aggressive IVF resuscitation, likely will need at least 6-8L - insulin gtt 0.1units/kg/hr until anion gap closed - BMP q4h, BGM q1h while on insulin gtt - add D5 to IVF if FS <250 while on insulin gtt - add K to IVF if <4.5 while on insulin gtt - empiric antibiotics - trend lactate - de [place] rosa culture - check CXR - monitor urine output, creatinine - ICU monitoring critical care time spent in reviewing chart, evaluating patient and formulating plan 45 min
[2018-11-18] MEDS: VANCOMYCIN 1,000 MG in DEXTROSE 5%-WATER - 250 ML IVPB SCH (17:06)
[2018-11-18] MEDS: MIDAZOLAM 100 MG in SODIUM CHLORIDE 100 ML IVPB SCH (17:10)
[2018-11-18] MEDS ORDERED: PIPERACILLIN/TAZOBACTAM 3.375 GM VIAL IVPB ONE ×2 (17:14→23:10)
[2018-11-18] MEDS ORDERED: DEXTROSE 5%-WATER - 50 ML IVPB ONE ×2 (17:14→23:10)
--- NOTE | 2018-11-18 17:15 | CONSULT ---
Consultation: REQUESTING PROVIDER: CONSULT REQUEST: We have been asked to medically evaluate this patient for DKA. HISTORY OF PRESENT ILLNESS: Patient is a 48 year old female with past medical history of HTN, CVA (left sided hemiparesis), HLD, IDDM, DKA, Dysphagia, Gastroparesis, esophageal stricture (EGD 02/14), known to have multiple admissions for DKA, presented to [place] ED after being found unresponsive by the neighbor. Patient was noted to be hypergylcemic at 1600 with elevated anion gap, hyperkalemia and positive acetones in the urine. Peaked T waves were also noted on EKG. Patient was started on Insulin drip and IV fluid boluses were given. Sodium bicarb and Calcium gluconate given. Patient was then transferred to [facility] ICU. Upon arrival patient was noted to be lethargic, moaning, on nonrebreather mask, and unresponsive to voice but withdraws to pain. ABG showed high anion gap metabolic acidosis with pH of 6.85 and patient was subsequently intubated. Central line placed as well. As per EMS, the patient had no family at bedside. Contacted fianceeBoogie, to get further history. He stated patient was not feeling well yesterday but did not have any fever, vomiting, cough, colds, chest pain, SOB, abdominal pain or diarrhea. This morning, when he left home at around 6am patient was still noted to be up and about around the house. A few hours after, patient called him and told him she was not feeling well. He asked the neighbor to check on the patient, who was noted to be unresponsive, and subsequently called the ambulance and patient was brought to [place] ED. REVIEW OF SYSTEMS: CONSTITUTIONAL: Absent: fever, chills, diaphoresis, generalized weakness, malaise, loss of appetite, weight change HEENT: Absent: rhinorrhea, nasal congestion, throat pain, throat swelling, difficulty swallowing, mouth swelling, ear pain, eye pain, visual changes CARDIOVASCULAR: Absent: chest pain, syncope, palpitations, irregular heart rate, lightheadedness , peripheral edema RESPIRATORY: Absent: cough, shortness of breath, dyspnea with exertion, orthopnea, wheezing, stridor, hemoptysis GASTROINTESTINAL: Absent: abdominal pain, abdominal distension, nausea, vomiting, diarrhea, constipation, melena, hematochezia GENITOURINARY: Absent: dysuria, frequency, urgency, hesitancy, hematuria, flank pain, genital pain MUSCULOSKELETAL: Absent: myalgia, arthralgia, joint swelling, back pain, neck pain SKIN: Absent: rash, itching, pallor HEMATOLOGIC/IMMUNOLOGIC: Absent: easy bleeding, easy bruising, lymphadenopathy, frequent infections ENDOCRINE: Absent: unexplained weight gain, unexplained weight loss, heat intolerance, cold intolerance NEUROLOGIC: altered mental status Absent: headache, focal weakness or paresthesias, dizziness, unsteady gait, seizure, bladder or bowel incontinence PSYCHIATRIC: Absent: anxiety, depression, suicidal or homicidal ideation, hallucinations. PHYSICAL EXAMINATION Vital Signs - 24 hr 11/18/18 11/18/18 11/18/18 12:25 12:49 13:01 Temperature Pulse Rate 108 H Pulse Rate [ 129 H 108 H Right] Respiratory 24 H 24 H 22 H Rate Blood Pressure 72/36 L Blood Pressure 89/40 L 75/45 L [Left Arm] O2 Sat by Pulse 96 Oximetry (%) 11/18/18 11/18/18 11/18/18 13:29 14:07 14:33 Temperature 95.7 F L 95.7 F L 94.8 F L Pulse Rate Pulse Rate [ 104 H 119 H 112 H Right] Respiratory 20 20 24 H Rate Blood Pressure Blood Pressure 79/47 L 77/73 L 80/58 L [Left Arm] O2 Sat by Pulse 98 98 94 L Oximetry (%) 11/18/18 16:35 Temperature Pulse Rate 96 H Pulse Rate [ Right] Respiratory 30 H Rate Blood Pressure Blood Pressure [Left Arm] O2 Sat by Pulse 100 Oximetry (%) GENERAL: Intubated, sedated HEAD: Normal with no signs of trauma. EYES: PERRLA, EOMI, sclera anicteric, conjunctiva clear. EARS, NOSE, THROAT: oropharynx clear without exudates. Dry mucous membranes. NECK: supple, Right IJ cath in place LUNGS: Breath sounds equal, clear to auscultation bilaterally. No wheezes, and no crackles. HEART: Tachycardic, normal S1 and S2 without murmur, rub or gallop. ABDOMEN: Soft, nontender, not distended, normoactive bowel sounds. +midline scar in the periumbilical area MUSCULOSKELETAL: Normal range of motion at all joints. UPPER EXTREMITIES: 2+ pulses, warm, well-perfused. No peripheral edema. LOWER EXTREMITIES: 2+ pulses, warm, well-perfused. No peripheral edema. NEUROLOGICAL: intubated, sedated SKIN: Warm, dry, normal turgor, no rashes or lesions noted. Laboratory Results - last 24 hr 11/18/18 11/18/18 11/18/18 12:50 12:51 13:02 WBC Cancelled Corrected WBC (auto) Cancelled RBC Cancelled Hgb Cancelled Hct Cancelled MCV Cancelled MCH Cancelled MCHC Cancelled RDW Cancelled Plt Count Cancelled MPV Cancelled Manual Slide Review Cancelled Platelet Comment Cancelled Anticoagulation Therapy Puncture Site ABG pH ABG pCO2 at Pt Temp ABG pO2 at Pt Temp ABG HCO3 ABG O2 Sat (Measured) ABG O2 Content ABG Base Excess Taul Test Carboxyhemoglobin Methemoglobin O2 Delivery Device Oxygen Flow Rate Vent Mode Vent Rate Mechanical Rate Pressure Support Vent Sodium Potassium Chloride Carbon Dioxide Anion Gap BUN Creatinine Est GFR (CKD-EPI)AfAm Est GFR (CKD-EPI)NonAf POC Glucometer Random Glucose 1628 H* Calcium Total Bilirubin AST ALT Alkaline Phosphatase Creatine Kinase Total Protein Albumin Urine Color Urine Appearance Urine pH Urine Protein Urine Glucose (UA) Urine Ketones Urine Blood Urine Nitrite Urine Bilirubin Urine Urobilinogen Ur Leukocyte Esterase Urine HCG, Qual Acetone, Qual Positive large 3+ H 11/18/18 11/18/18 11/18/18 13:02 13:02 13:10 WBC Corrected WBC (auto) RBC Hgb Hct MCV MCH MCHC RDW Plt Count MPV Manual Slide Review Platelet Comment Anticoagulation Therapy No Result Required. Puncture Site No Result Required. ABG pH 6.85 L* ABG pCO2 at Pt Temp 15.5 L ABG pO2 at Pt Temp 87.3 ABG HCO3 2.5 L ABG O2 Sat (Measured) 88.9 L ABG O2 Content 9.6 L* ABG Base Excess -29.0 L Atul Test No Result Required. Carboxyhemoglobin 1.1 Methemoglobin 0.9 O2 Delivery Device No Result Required. Oxygen Flow Rate No Result Required. Vent Mode No Result Required. Vent Rate No Result Required. Mechanical Rate No Result Required. Pressure Support Vent No Result Required. Sodium 128 L Potassium 8.9 H* Chloride 93 L Carbon Dioxide < 6 L Anion Gap 29 H BUN 42 H Creatinine 2.7 H Est GFR (CKD-EPI)AfAm 23.06 Est GFR (CKD-EPI)NonAf 19.89 POC Glucometer Random Glucose 1628 H* Calcium 8.0 L Total Bilirubin 1.8 H AST 30 ALT 20 Alkaline Phosphatase 88 Creatine Kinase Total Protein 5.8 L Albumin 3.3 L Urine Color Yellow Urine Appearance Clear Urine pH 5.0 Urine Protein Trace Urine Glucose (UA) 2+ H Urine Ketones 4+ H Urine Blood Negative Urine Nitrite Negative Urine Bilirubin Negative Urine Urobilinogen 0.2 Ur Leukocyte Esterase Negative Urine HCG, Qual Acetone, Qual 11/18/18 11/18/18 11/18/18 13:24 14:20 15:25 WBC Corrected WBC (auto) RBC Hgb Hct MCV MCH MCHC RDW Plt Count MPV Manual Slide Review Platelet Comment Anticoagulation Therapy Puncture Site ABG pH ABG pCO2 at Pt Temp ABG pO2 at Pt Temp ABG HCO3 ABG O2 Sat (Measured) ABG O2 Content ABG Base Excess Atul Test Carboxyhemoglobin Methemoglobin O2 Delivery Device Oxygen Flow Rate Vent Mode Vent Rate Mechanical Rate Pressure Support Vent Sodium Potassium Chloride Carbon Dioxide Anion Gap BUN Creatinine Est GFR (CKD-EPI)AfAm Est GFR (CKD-EPI)NonAf POC Glucometer > 600 Random Glucose Calcium Total Bilirubin AST ALT Alkaline Phosphatase Creatine Kinase 55 Total Protein Albumin Urine Color Urine Appearance Urine pH Urine Protein Urine Glucose (UA) Urine Ketones Urine Blood Urine Nitrite Urine Bilirubin Urine Urobilinogen Ur Leukocyte Esterase Urine HCG, Qual Negative Acetone, Qual 11/18/18 16:23 WBC Corrected WBC (auto) RBC Hgb Hct MCV MCH MCHC RDW Plt Count MPV Manual Slide Review Platelet Comment Anticoagulation Therapy Puncture Site ABG pH ABG pCO2 at Pt Temp ABG pO2 at Pt Temp ABG HCO3 ABG O2 Sat (Measured) ABG O2 Content ABG Base Excess Atul Test Carboxyhemoglobin Methemoglobin O2 Delivery Device Oxygen Flow Rate Vent Mode Vent Rate Mechanical Rate Pressure Support Vent Sodium Potassium Chloride Carbon Dioxide Anion Gap BUN Creatinine Est GFR (CKD-EPI)AfAm Est GFR (CKD-EPI)NonAf POC Glucometer > 600 Random Glucose Calcium Total Bilirubin AST ALT Alkaline Phosphatase Creatine Kinase Total Protein Albumin Urine Color Urine Appearance Urine pH Urine Protein Urine Glucose (UA) Urine Ketones Urine Blood Urine Nitrite Urine Bilirubin Urine Urobilinogen Ur Leukocyte Esterase Urine HCG, Qual Acetone, Qual Active Medications Generic Name Dose Route Start Last Admin Trade Name Freq PRN Reason Stop Dose Admin Albuterol Sulfate 1 amp 11/18/18 15:26 Ventolin 0.083% Nebulizer Soln - NEB Q4H PRN SHORTNESS OF BREATH Chlorhexidine Gluconate 1 applic 11/18/18 22:00 Hibiclens For Decolonization - TP HS [facility] Heparin Sodium (Porcine) 5,000 unit 11/18/18 22:00 Heparin - SQ BID [facility] Insulin Human Regular 100 100 mls @ 6.12 mls/hr 11/18/18 13:45 11/18/18 14:06 units/ Sodium Chloride IVPB 0.1 units/kg/hr TITR [facility] 6.12 mls/hr Administration Protocol 0.1 UNITS/KG/HR Sodium Chloride 1,000 mls @ 125 mls/hr 11/18/18 15:30 Normal Saline - IV ASDIR [facility] Piperacillin Sod/Tazobactam 50 mls @ 100 mls/hr 11/18/18 15:30 Sod 3.375 gm/ Dextrose IVPB Q8H-IV [facility] Protocol Piperacillin Sod/Tazobactam 50 mls @ 100 mls/hr 11/18/18 15:45 Sod 3.375 gm/ Dextrose IVPB 11/19/18 17:59 Q8H-IV [facility] Vancomycin HCl 1,000 mg/ 250 mls @ 166.667 mls/hr 11/18/18 15:45 Dextrose IVPB Q12H [facility] Protocol Mupirocin 1 applic 11/18/18 22:00 Bactroban Ointment (For Decolonization) - NS 11/23/18 21:59 BID [facility] Vancomycin HCl 1,000 mg 11/18/18 15:45 Vancomycin (Pre-Docked) IVPB 11/19/18 15:46 Q12H [facility] ASSESSMENT/PLAN: Patient is a 48 year old female with past medical history of HTN, CVA (left sided hemiparesis), HLD, IDDM, DKA, Dysphagia, Gastroparesis, esophageal stricture (EGD 02/14), presented to [place] ED after being found unresponsive by the neighbor. Patient was found to be in DKA. #Neurology -Altered mental status s/p intubated, sedated -Versed drip and Fentanyl drip started #Cardiovascular -Hypovolemic shock, improved with IVF boluses -Hx of HLD -Trop < 0.02 -Hold Anti-HTN, Continue to monitor for hypotension #Pulmonology -Acute respiratory failure -Intubated, sedated -ABG 6.85/15.5/87.3/2.5 -ABG and CXR daily #GI -Hx of Dysphagia, Gastroparesis, esophageal stricture (EGD 02/14) -NPO -Protonix for GI prophylaxis #Renal -High anion gap metabolic acidosis -GIANCARLO, likely pre-renal -Hyperkalemia, peaked T waves noted on EKG -Hyponatremia -Aggressive IV fluid hydration -Calcium gluconate 1gm IV given once -On insulin drip -Monitor UO -will continue to monitor renal function #Endo -Diabetic Ketoacidosis, anion gap metabolic acidosis -Hx of IDDM, known history of noncompliance -UA: 4+ Glucose, 2+ Ketones -Acetone: Positive Large 3+ -ABG: pH6.85 -s/p 4L NS, sodium bicarb 8.4% x3 doses, -On insulin drip at gtt 0.1units/kg/hr -BGM q1h -BMP q4h -Will continue insulin drip until anion gap closes -Once AG closed, will start SQ Insulin -while on insulin drip, switch IVF to D5-1/2NS for blood glucose <250 -Add K on IVF if K<5.2 while on insulin drip -IV NS @200cc/hr -Endocrinology (Dr. Gama) consulted. #ID -Leukocytosis, 27.6, unclear source -Blood cultures, urine cultures ordered -CXR -Lactic acid 4.8, will trend -Will start empiric Vanc/Zosyn -ID (Dr. Pimentel) consulted. #Heme -Leukocytosis, unclear source -Blood cultures, urine cultures ordered #FEN -IV NS 200cc/hr -HyperK -Routine bmp monitoring -NPO #Prophylaxis -DVT: Heparin 5000unit sq bid -GI: Protonix 40mg daily #Disposition -full code -ICU monitoring Dispo: We will continue to follow the patient. Thank you for this consultative opportunity. Visit type - Emergency Visit Emergency Visit: Yes ED Registration Date: 11/18/18 Care time: The patient presented to the Emergency Department on the above date and was hospitalized for further evaluation of their emergent condition. - New Patient This patient is new to me today: Yes Date on this admission: 11/18/18 - Critical Care Critical Care patient: Yes Total Critical Care Time (in minutes): 45 Critical Care Statement: The care of this patient involved high complexity decision making to prevent further life threatening deterioration of the patient 's condition and/or to evaluate & treat vital organ system(s) failure or risk of failure.
[2018-11-18] MEDS: VANCOMYCIN 1 GM in D5W (PRE-DOCKED) 1,000 MG/250 ML IVPB SCH (17:17)
[2018-11-18] MEDS: PIPERACILLIN/TAZOB 3.375 GM 3.375 GM in DEXTROSE 5%-WATER - 50 ML IVPB SCH ×3 (17:18→23:14)
[2018-11-18 17:42] LABS: ARTERIAL BLD GAS O2 SATURATION 98.9 % (95-98); ARTERIAL BLOOD GAS BASE EXCESS -21.2 meq/l (-2-2); ARTERIAL BLOOD GAS PO2 218 mmHg (80-105)
[2018-11-18 17:47] LABS: ARTERIAL BLOOD GAS pH 7.09 (7.35-7.45)
[2018-11-18] MEDS ORDERED: fentaNYL CITRATE 250 MCG/5 ML VIAL ONE ×2 (17:47→21:21)
[2018-11-18] MEDS: FENTANYL INJECTION 500 MCG in DEXTROSE 5%-WATER - 90 ML IVPB SCH (17:55)
[2018-11-18 18:02] LABS: BASO % 0.2 % (0-2.0); EOS % 0.2 % (0-4.5); HEMATOCRIT 30.4 % (32.4-45.2); HEMOGLOBIN 8.8 GM/dL (10.7-15.3); LYMPH % 18.2 % (8-40); MCH 26.4 pg (25.7-33.7); MCHC 28.9 g/dl (32.0-36.0); MEAN CELL VOLUME 91.4 fl (80-96); MEAN PLT VOLUME 8.5 fl (7.5-11.1); MONO % 4.8 % (3.8-10.2); NEUT % 76.6 % (42.8-82.8); PLATELET COUNT 336 K/MM3 (134-434); RBC 3.32 M/mm3 (3.60-5.2); RDW 17.9 % (11.6-15.6); WHITE BLOOD COUNT 27.6 K/mm3 (4.0-10.0)
[2018-11-18 18:12] LABS: EPI CELLS 3.5 /HPF (0-5/HPF); HYALINE CASTS 35 /lpf (0-8); URINE APPEARANCE CLOUDY; URINE BACTERIA 10.7 /hpf (NEGATIVE); URINE BILIRUBIN NEGATIVE (NEGATIVE); URINE COLOR YELLOW; URINE GLUCOSE (UA) 3+ (NEGATIVE); URINE KETONE 2+ (NEGATIVE); URINE LEUK ESTERASE NEGATIVE (NEGATIVE); URINE NITRITE NEGATIVE (NEGATIVE); URINE PROTEIN 1+ (NEGATIVE); URINE UROBILINOGEN 0.2 mg/dL (0.2-1.0); URINE WBC 7 /hpf (0-5)
[2018-11-18 18:15] LABS: CALCIUM 7.7 mg/dL (8.5-10.1); CREATININE 2.1 mg/dL (0.55-1.3); MAGNESIUM 2.6 mg/dL (1.8-2.4); PHOSPHOROUS 3.3 mg/dL (2.5-4.9); POTASSIUM 3.3 mmol/L (3.5-5.1)
[2018-11-18] MEDS: INSULIN REGULAR 100 UNITS in SODIUM CHLORIDE 99 ML IVPB SCH (18:30)
[2018-11-18] MEDS ORDERED: SODIUM CHLORIDE 0.45%/POT 20 MEQ/1,000 ML INFUS.BAG IV SCH (18:45)
[2018-11-18 18:48] LABS: COCAINE, UR NEGATIVE ng/ml (CUTOFF=300); METHADONE, UR NEGATIVE ng/ml (CUTOFF=300); OPIATES, URI NEGATIVE ng/ml (CUTOFF=300); PHENCYCLIDINE,URINE NEGATIVE ng/ml (CUTOFF=25); URINE AMPHETAMINES NEGATIVE ng/ml (CUTOFF=500); URINE BARBITURATES NEGATIVE ng/ml (CUTOFF=200); URINE BENZODIAZEPINES NEGATIVE ng/ml (CUTOFF=200)
[2018-11-18 19:47] LABS: PLATELET ESTIMATE ADEQUATE
[2018-11-18 20:22] LABS: CALCIUM 7.4 mg/dL (8.5-10.1); CREATININE 1.9 mg/dL (0.55-1.3); MAGNESIUM 2.4 mg/dL (1.8-2.4); PHOSPHOROUS 1.2 mg/dL (2.5-4.9); POTASSIUM 3.3 mmol/L (3.5-5.1)
[2018-11-18] MEDS ORDERED: KCL 10 MEQ IVPB 10 MEQ/100 ML INFUS.BAG IVPB SCH (20:30)
[2018-11-18] MEDS: HEPARIN NA (PORCINE) 5,000 UNITS/ML 1ML VIAL SQ SCH (21:16)
[2018-11-18] MEDS: CHLORHEXIDINE GLUCONATE 4% CLEANSER FOR DECOLONIZATION TP SCH (21:17)
[2018-11-18] MEDS: MUPIROCIN 2% TOPICAL OINTMENT FOR DECOLONIZATION NS SCH (21:20)
[2018-11-18] MEDS ORDERED: HEPARIN NA (PORCINE) 5,000 UNITS/ML 1ML VIAL SQ SCH (22:00)
[2018-11-18] MEDS ORDERED: D5-1/2NS+20 MEQ KCL - 20 MEQ/1,000 ML INFUS.BAG IV SCH (22:15)
[2018-11-18 23:08] LABS: ARTERIAL BLD GAS O2 SATURATION 99.7 % (95-98); ARTERIAL BLOOD GAS BASE EXCESS -8.7 meq/l (-2-2); ARTERIAL BLOOD GAS PCO2 31.2 mmHg (35-45); ARTERIAL BLOOD GAS PO2 176 mmHg (80-105); ARTERIAL BLOOD GAS pH 7.33 (7.35-7.45)
[2018-11-18 23:09] LABS: ALLENS TEST POSITIVE
[2018-11-18 23:38] LABS: CALCIUM 7.5 mg/dL (8.5-10.1); CREATININE 1.7 mg/dL (0.55-1.3); POTASSIUM 3.4 mmol/L (3.5-5.1)
[2018-11-18 23:44] LABS: PHOSPHOROUS 0.8 mg/dL (2.5-4.9)
[2018-11-19] MEDS ORDERED: POTASSIUM PHOSPHATE 30 MM in DEXTROSE 5%-WATER - 250 ML IVPB ONE (01:00)
[2018-11-19] MEDS: PIPERACILLIN/TAZOB 3.375 GM 3.375 GM in DEXTROSE 5%-WATER - 50 ML IVPB SCH ×6 (02:05→18:08)
[2018-11-19] MEDS ORDERED: MIDAZOLAM 100 MG/100 ML MG IVPB ONE (02:07)
[2018-11-19] MEDS ORDERED: fentaNYL CITRATE 250 MCG/5 ML VIAL ONE (02:07)
[2018-11-19] MEDS ORDERED: PIPERACILLIN/TAZOBACTAM 3.375 GM VIAL IVPB ONE ×3 (02:14→18:05)
[2018-11-19] MEDS ORDERED: DEXTROSE 5%-WATER - 50 ML IVPB ONE ×3 (02:15→18:06)
[2018-11-19 02:41] LABS: CALCIUM 7.2 mg/dL (8.5-10.1); CREATININE 1.1 mg/dL (0.55-1.3); POTASSIUM 3.5 mmol/L (3.5-5.1)
[2018-11-19] MEDS: VANCOMYCIN 1 GM in D5W (PRE-DOCKED) 1,000 MG/250 ML IVPB SCH ×2 (03:12→16:40)
[2018-11-19 03:53] LABS: ARTERIAL BLD GAS O2 SATURATION 99.7 % (95-98); ARTERIAL BLOOD GAS BASE EXCESS -4.8 meq/l (-2-2); ARTERIAL BLOOD GAS PCO2 40.7 mmHg (35-45); ARTERIAL BLOOD GAS PO2 171 mmHg (80-105); ARTERIAL BLOOD GAS pH 7.32 (7.35-7.45)
[2018-11-19 04:00] LABS: ALLENS TEST POSITIVE
[2018-11-19] MEDS: KCL 10 MEQ IVPB 10 MEQ/100 ML INFUS.BAG IVPB SCH ×2 (06:32→06:33)
[2018-11-19] MEDS: HEPARIN NA (PORCINE) 5,000 UNITS/ML 1ML VIAL SQ SCH ×3 (06:34→22:08)
[2018-11-19 07:00] LABS: ARTERIAL BLD GAS O2 SATURATION 99.5 % (95-98); ARTERIAL BLOOD GAS BASE EXCESS -6.2 meq/l (-2-2); ARTERIAL BLOOD GAS PCO2 39.2 mmHg (35-45); ARTERIAL BLOOD GAS PO2 190 mmHg (80-105); ARTERIAL BLOOD GAS pH 7.31 (7.35-7.45)
[2018-11-19 07:11] LABS: ALLENS TEST POSITIVE
[2018-11-19] MEDS ORDERED: DEXTROSE 50%-WATER - 25 GM/50 ML VIAL IVPUSH ONE (07:31)
[2018-11-19] MEDS ORDERED: DEXTROSE 50%-WATER 25 GM/50 ML DISP.SYRIN ONE (07:31)
[2018-11-19] MEDS ORDERED: D5-1/2NS+20 MEQ KCL - 20 MEQ/1,000 ML INFUS.BAG IV SCH ×4 (07:34→13:17)
[2018-11-19 07:49] LABS: BASO % 0.2 % (0-2.0); EOS % 0.3 % (0-4.5); HEMATOCRIT 25.2 % (32.4-45.2); HEMOGLOBIN 8.2 GM/dL (10.7-15.3); LYMPH % 16.5 % (8-40); MCH 27.1 pg (25.7-33.7); MCHC 32.7 g/dl (32.0-36.0); MEAN CELL VOLUME 82.9 fl (80-96); MEAN PLT VOLUME 7.5 fl (7.5-11.1); MONO % 5.7 % (3.8-10.2); NEUT % 77.3 % (42.8-82.8); PLATELET COUNT 264 K/MM3 (134-434); RBC 3.03 M/mm3 (3.60-5.2); RDW 17.6 % (11.6-15.6); WHITE BLOOD COUNT 10.6 K/mm3 (4.0-10.0)
[2018-11-19 09:00] LABS: ALBUMIN 2.4 g/dl (3.4-5.0); BILIRUBIN,TOTAL 0.2 mg/dL (0.2-1); CALCIUM 7.2 mg/dL (8.5-10.1); CREATININE 1.3 mg/dL (0.55-1.3); MAGNESIUM 1.6 mg/dL (1.8-2.4); PHOSPHOROUS 4.2 mg/dL (2.5-4.9); POTASSIUM 3.8 mmol/L (3.5-5.1); TOT PROT 4.6 g/dl (6.4-8.2)
[2018-11-19 10:01] LABS: CALCIUM 7.1 mg/dL (8.5-10.1); CREATININE 1.2 mg/dL (0.55-1.3); MAGNESIUM 1.8 mg/dL (1.8-2.4); PHOSPHOROUS 3.4 mg/dL (2.5-4.9); POTASSIUM 3.6 mmol/L (3.5-5.1)
[2018-11-19] MEDS ORDERED: PT OWN MED DRAWER 7, Y5N ONE (10:05)
[2018-11-19] MEDS: PANTOPRAZOLE SODIUM 40 MG VIAL IVPUSH SCH (10:08)
--- NOTE | 2018-11-19 11:50 | PN ---
Teaching Attending Note Name of Resident: Lashaun Lugo ATTENDING PHYSICIAN STATEMENT I saw and evaluated the patient. I reviewed the resident's note and discussed the case with the resident. I agree with the resident's findings and plan as documented. SUBJECTIVE: I saw and evaluated the patient. I reviewed the resident's note and discussed the case with the resident. I agree with the resident's findings and plan as documented. SUBJECTIVE: Patient seen and examined in the ICU. Remains intubated and sedated. AC Mode of vent, 40% FiO2. No pressors. IV Insulin drip infusing. Intake & Output 11/16/18 11/17/18 11/18/18 11/19/18 23:59 23:59 23:59 23:59 Intake Total 4705 2736 Output Total 1590 900 Balance 3115 1836 Weight 56 lb 6.4 oz 139 lb 1 oz Last Vital Signs Temp Pulse Resp BP Pulse Ox 98.6 F 93 H 20 128/65 100 11/19/18 10:00 11/19/18 10:00 11/19/18 10:37 11/19/18 10:00 11/19/18 09:35 Active Medications Albuterol Sulfate (Ventolin 0.083% Nebulizer Soln -) 1 amp NEB Q4H PRN PRN Reason: SHORTNESS OF BREATH Chlorhexidine Gluconate (Hibiclens For Decolonization -) 1 applic TP HS [facility] Last Admin: 11/18/18 21:17 Dose: 1 applic Heparin Sodium (Porcine) (Heparin -) 5,000 unit SQ TID [facility] Last Admin: 11/19/18 06:34 Dose: 5,000 unit Vancomycin HCl 1,000 mg/ (Dextrose) 250 mls @ 166.667 mls/hr IVPB Q12H [facility]; Protocol Midazolam HCl 100 mg/ Sodium (Chloride) 100 mls @ 1 mls/hr IVPB TITR [facility]; Protocol Last Titration: 11/19/18 02:00 Dose: 6 mg/hr, 6 mls/hr Fentanyl 500 mcg/ Dextrose 100 mls @ 5 mls/hr IVPB TITR [facility]; Protocol Last Titration: 11/19/18 03:13 Dose: 100 mcg/hr, 20 mls/hr Insulin Human Regular 100 (units/ Sodium Chloride) 100 mls @ 6.12 mls/hr IVPB TITR [facility]; Protocol Last Titration: 11/19/18 01:00 Dose: 0.01 units/kg/hr, 1 mls/hr Piperacillin Sod/Tazobactam (Sod 3.375 gm/ Dextrose) 50 mls @ 100 mls/hr IVPB Q8H-IV [facility]; Protocol Last Admin: 11/19/18 10:07 Dose: 100 mls/hr Potassium Chloride/Dextrose/Sod Cl (D5-1/2ns+20 Meq Kcl -) 20 meq in 1,000 mls @ 200 mls/hr IV [facility] Mupirocin (Bactroban Ointment (For Decolonization) -) 1 applic NS BID [facility] Stop: 11/23/18 21:59 Last Admin: 11/18/18 21:20 Dose: 1 applic Pantoprazole Sodium (Protonix Iv) 40 mg IVPUSH DAILY [facility] Last Admin: 11/19/18 10:08 Dose: 40 mg Vancomycin HCl (Vancomycin (Pre-Docked)) 1,000 mg IVPB Q12H [facility] Stop: 11/19/18 15:46 Last Admin: 11/19/18 03:12 Dose: 1,000 mg Gen: Intubated and sedated Heart: tachycardic, regular Lung: Vented, decreased breath sounds at the bases Abd: soft, nontender Ext: no edema Laboratory Results - last 24 hr 11/18/18 11/18/18 11/18/18 12:50 12:51 13:02 WBC Cancelled Corrected WBC (auto) Cancelled RBC Cancelled Hgb Cancelled Hct Cancelled MCV Cancelled MCH Cancelled MCHC Cancelled RDW Cancelled Plt Count Cancelled MPV Cancelled Absolute Neuts (auto) Neutrophils % Neutrophils % (Manual) Band Neutrophils % Lymphocytes % Lymphocytes % (Manual) Monocytes % Monocytes % (Manual) Eosinophils % Eosinophils % (Manual) Basophils % Basophils % (Manual) Myelocytes % (Man) Nucleated RBC % Manual Slide Review Cancelled Platelet Estimate Platelet Comment Cancelled Anticoagulation Therapy Puncture Site ABG pH ABG pCO2 at Pt Temp ABG pO2 at Pt Temp ABG HCO3 ABG O2 Sat (Measured) ABG O2 Content ABG Base Excess Atul Test Carboxyhemoglobin Methemoglobin O2 Delivery Device Oxygen Flow Rate Vent Mode Vent Rate Mechanical Rate PEEP Pressure Support Vent Sodium Potassium Chloride Carbon Dioxide Anion Gap BUN Creatinine Est GFR (CKD-EPI)AfAm Est GFR (CKD-EPI)NonAf POC Glucometer Random Glucose 1628 H* Lactic Acid Calcium Phosphorus Magnesium Total Bilirubin AST ALT Alkaline Phosphatase Creatine Kinase Total Protein Albumin Urine Color Urine Appearance Urine pH Ur Specific Orrick Urine Protein Urine Glucose (UA) Urine Ketones Urine Blood Urine Nitrite Urine Bilirubin Urine Urobilinogen Ur Leukocyte Esterase Urine WBC (Auto) Urine RBC (Auto) Urine Casts (Auto) U Pathogenic Cast Auto U Epithel Cells (Auto) Urine Bacteria (Auto) Urine HCG, Qual Opiates Screen Methadone Screen Barbiturate Screen Phencyclidine Screen Ur Amphetamines Screen MDMA (Ecstasy) Screen Benzodiazepines Screen Cocaine Screen U Marijuana (THC) Screen Acetone, Qual Positive large 3+ H 11/18/18 11/18/18 11/18/18 13:02 13:02 13:10 WBC Corrected WBC (auto) RBC Hgb Hct MCV MCH MCHC RDW Plt Count MPV Absolute Neuts (auto) Neutrophils % Neutrophils % (Manual) Band Neutrophils % Lymphocytes % Lymphocytes % (Manual) Monocytes % Monocytes % (Manual) Eosinophils % Eosinophils % (Manual) Basophils % Basophils % (Manual) Myelocytes % (Man) Nucleated RBC % Manual Slide Review Platelet Estimate Platelet Comment Anticoagulation Therapy No Result Required. Puncture Site No Result Required. ABG pH 6.85 L* ABG pCO2 at Pt Temp 15.5 L ABG pO2 at Pt Temp 87.3 ABG HCO3 2.5 L ABG O2 Sat (Measured) 88.9 L ABG O2 Content 9.6 L* ABG Base Excess -29.0 L Atul Test No Result Required. Carboxyhemoglobin 1.1 Methemoglobin 0.9 O2 Delivery Device No Result Required. Oxygen Flow Rate No Result Required. Vent Mode No Result Required. Vent Rate No Result Required. Mechanical Rate No Result Required. PEEP Pressure Support Vent No Result Required. Sodium 128 L Potassium 8.9 H* Chloride 93 L Carbon Dioxide < 6 L Anion Gap 29 H BUN 42 H Creatinine 2.7 H Est GFR (CKD-EPI)AfAm 23.06 Est GFR (CKD-EPI)NonAf 19.89 POC Glucometer Random Glucose 1628 H* Lactic Acid Calcium 8.0 L Phosphorus Magnesium Total Bilirubin 1.8 H AST 30 ALT 20 Alkaline Phosphatase 88 Creatine Kinase Total Protein 5.8 L Albumin 3.3 L Urine Color Yellow Urine Appearance Clear Urine pH 5.0 Ur Specific Orrick Urine Protein Trace Urine Glucose (UA) 2+ H Urine Ketones 4+ H Urine Blood Negative Urine Nitrite Negative Urine Bilirubin Negative Urine Urobilinogen 0.2 Ur Leukocyte Esterase Negative Urine WBC (Auto) Urine RBC (Auto) Urine Casts (Auto) U Pathogenic Cast Auto U Epithel Cells (Auto) Urine Bacteria (Auto) Urine HCG, Qual Opiates Screen Methadone Screen Barbiturate Screen Phencyclidine Screen Ur Amphetamines Screen MDMA (Ecstasy) Screen Benzodiazepines Screen Cocaine Screen U Marijuana (THC) Screen Acetone, Qual 11/18/18 11/18/18 11/18/18 13:24 14:20 15:25 WBC Corrected WBC (auto) RBC Hgb Hct MCV MCH MCHC RDW Plt Count MPV Absolute Neuts (auto) Neutrophils % Neutrophils % (Manual) Band Neutrophils % Lymphocytes % Lymphocytes % (Manual) Monocytes % Monocytes % (Manual) Eosinophils % Eosinophils % (Manual) Basophils % Basophils % (Manual) Myelocytes % (Man) Nucleated RBC % Manual Slide Review Platelet Estimate Platelet Comment Anticoagulation Therapy Puncture Site ABG pH ABG pCO2 at Pt Temp ABG pO2 at Pt Temp ABG HCO3 ABG O2 Sat (Measured) ABG O2 Content ABG Base Excess Atul Test Carboxyhemoglobin Methemoglobin O2 Delivery Device Oxygen Flow Rate Vent Mode Vent Rate Mechanical Rate PEEP Pressure Support Vent Sodium Potassium Chloride Carbon Dioxide Anion Gap BUN Creatinine Est GFR (CKD-EPI)AfAm Est GFR (CKD-EPI)NonAf POC Glucometer > 600 Random Glucose Lactic Acid Calcium Phosphorus Magnesium Total Bilirubin AST ALT Alkaline Phosphatase Creatine Kinase 55 Total Protein Albumin Urine Color Urine Appearance Urine pH Ur Specific Orrick Urine Protein Urine Glucose (UA) Urine Ketones Urine Blood Urine Nitrite Urine Bilirubin Urine Urobilinogen Ur Leukocyte Esterase Urine WBC (Auto) Urine RBC (Auto) Urine Casts (Auto) U Pathogenic Cast Auto U Epithel Cells (Auto) Urine Bacteria (Auto) Urine HCG, Qual Negative Opiates Screen Methadone Screen Barbiturate Screen Phencyclidine Screen Ur Amphetamines Screen MDMA (Ecstasy) Screen Benzodiazepines Screen Cocaine Screen U Marijuana (THC) Screen Acetone, Qual 11/18/18 11/18/18 11/18/18 16:23 17:00 17:00 WBC Corrected WBC (auto) RBC Hgb Hct MCV MCH MCHC RDW Plt Count MPV Absolute Neuts (auto) Neutrophils % Neutrophils % (Manual) Band Neutrophils % Lymphocytes % Lymphocytes % (Manual) Monocytes % Monocytes % (Manual) Eosinophils % Eosinophils % (Manual) Basophils % Basophils % (Manual) Myelocytes % (Man) Nucleated RBC % Manual Slide Review Platelet Estimate Platelet Comment Anticoagulation Therapy Puncture Site ABG pH ABG pCO2 at Pt Temp ABG pO2 at Pt Temp ABG HCO3 ABG O2 Sat (Measured) ABG O2 Content ABG Base Excess Atul Test Carboxyhemoglobin Methemoglobin O2 Delivery Device Oxygen Flow Rate Vent Mode Vent Rate Mechanical Rate PEEP Pressure Support Vent Sodium 151 H Potassium 3.3 L Chloride 119 H Carbon Dioxide 9 L Anion Gap 23 H BUN 35 H Creatinine 2.1 H Est GFR (CKD-EPI)AfAm 31.24 Est GFR (CKD-EPI)NonAf 26.96 POC Glucometer > 600 Random Glucose 788 H* Lactic Acid 4.6 H* Calcium 7.7 L Phosphorus 3.3 Magnesium 2.6 H Total Bilirubin AST ALT Alkaline Phosphatase Creatine Kinase Total Protein Albumin Urine Color Urine Appearance Urine pH Ur Specific Orrick Urine Protein Urine Glucose (UA) Urine Ketones Urine Blood Urine Nitrite Urine Bilirubin Urine Urobilinogen Ur Leukocyte Esterase Urine WBC (Auto) Urine RBC (Auto) Urine Casts (Auto) U Pathogenic Cast Auto U Epithel Cells (Auto) Urine Bacteria (Auto) Urine HCG, Qual Opiates Screen Methadone Screen Barbiturate Screen Phencyclidine Screen Ur Amphetamines Screen MDMA (Ecstasy) Screen Benzodiazepines Screen Cocaine Screen U Marijuana (THC) Screen Acetone, Qual 11/18/18 11/18/18 11/18/18 17:00 17:30 17:37 WBC 27.6 H Corrected WBC (auto) RBC 3.32 L Hgb 8.8 L Hct 30.4 L MCV 91.4 MCH 26.4 MCHC 28.9 L RDW 17.9 H Plt Count 336 D MPV 8.5 D Absolute Neuts (auto) 21.1 H Neutrophils % 76.6 Neutrophils % (Manual) 58.0 Band Neutrophils % 15.0 Lymphocytes % 18.2 Lymphocytes % (Manual) 23.0 D Monocytes % 4.8 Monocytes % (Manual) 2 L Eosinophils % 0.2 D Eosinophils % (Manual) 1.0 D Basophils % 0.2 Basophils % (Manual) 0.0 Myelocytes % (Man) 1 D Nucleated RBC % 0 Manual Slide Review Platelet Estimate Adequate Platelet Comment Anticoagulation Therapy No Result Required. Puncture Site No Result Required. ABG pH 7.09 L* ABG pCO2 at Pt Temp 25.0 L ABG pO2 at Pt Temp 218 H ABG HCO3 7.2 L ABG O2 Sat (Measured) 98.9 H ABG O2 Content 12.6 L ABG Base Excess -21.2 L Atul Test No Result Required. Carboxyhemoglobin Methemoglobin O2 Delivery Device No Result Required. Oxygen Flow Rate Yes Vent Mode No Result Required. Vent Rate No Result Required. Mechanical Rate No Result Required. PEEP 5.0 Pressure Support Vent No Result Required. Sodium Potassium Chloride Carbon Dioxide Anion Gap BUN Creatinine Est GFR (CKD-EPI)AfAm Est GFR (CKD-EPI)NonAf POC Glucometer > 600 Random Glucose Lactic Acid Calcium Phosphorus Magnesium Total Bilirubin AST ALT Alkaline Phosphatase Creatine Kinase Total Protein Albumin Urine Color Urine Appearance Urine pH Ur Specific Orrick Urine Protein Urine Glucose (UA) Urine Ketones Urine Blood Urine Nitrite Urine Bilirubin Urine Urobilinogen Ur Leukocyte Esterase Urine WBC (Auto) Urine RBC (Auto) Urine Casts (Auto) U Pathogenic Cast Auto U Epithel Cells (Auto) Urine Bacteria (Auto) Urine HCG, Qual Opiates Screen Methadone Screen Barbiturate Screen Phencyclidine Screen Ur Amphetamines Screen MDMA (Ecstasy) Screen Benzodiazepines Screen Cocaine Screen U Marijuana (THC) Screen Acetone, Qual 11/18/18 11/18/18 11/18/18 17:43 17:43 18:31 WBC Corrected WBC (auto) RBC Hgb Hct MCV MCH MCHC RDW Plt Count MPV Absolute Neuts (auto) Neutrophils % Neutrophils % (Manual) Band Neutrophils % Lymphocytes % Lymphocytes % (Manual) Monocytes % Monocytes % (Manual) Eosinophils % Eosinophils % (Manual) Basophils % Basophils % (Manual) Myelocytes % (Man) Nucleated RBC % Manual Slide Review Platelet Estimate Platelet Comment Anticoagulation Therapy Puncture Site ABG pH ABG pCO2 at Pt Temp ABG pO2 at Pt Temp ABG HCO3 ABG O2 Sat (Measured) ABG O2 Content ABG Base Excess Atul Test Carboxyhemoglobin Methemoglobin O2 Delivery Device Oxygen Flow Rate Vent Mode Vent Rate Mechanical Rate PEEP Pressure Support Vent Sodium Potassium Chloride Carbon Dioxide Anion Gap BUN Creatinine Est GFR (CKD-EPI)AfAm Est GFR (CKD-EPI)NonAf POC Glucometer 558 Random Glucose Lactic Acid Calcium Phosphorus Magnesium Total Bilirubin AST ALT Alkaline Phosphatase Creatine Kinase Total Protein Albumin Urine Color Yellow Urine Appearance Cloudy Urine pH 5.0 Ur Specific Orrick 1.024 Urine Protein 1+ H Urine Glucose (UA) 3+ H Urine Ketones 2+ H Urine Blood Trace Urine Nitrite Negative Urine Bilirubin Negative Urine Urobilinogen 0.2 Ur Leukocyte Esterase Negative Urine WBC (Auto) 7 Urine RBC (Auto) 13.0 Urine Casts (Auto) 35 U Pathogenic Cast Auto Granular casts U Epithel Cells (Auto) 3.5 Urine Bacteria (Auto) 10.7 Urine HCG, Qual Opiates Screen Negative Methadone Screen Negative Barbiturate Screen Negative Phencyclidine Screen Negative Ur Amphetamines Screen Negative MDMA (Ecstasy) Screen Negative Benzodiazepines Screen Negative Cocaine Screen Negative U Marijuana (THC) Screen Negative Acetone, Qual 11/18/18 11/18/18 11/18/18 19:00 20:07 21:14 WBC Corrected WBC (auto) RBC Hgb Hct MCV MCH MCHC RDW Plt Count MPV Absolute Neuts (auto) Neutrophils % Neutrophils % (Manual) Band Neutrophils % Lymphocytes % Lymphocytes % (Manual) Monocytes % Monocytes % (Manual) Eosinophils % Eosinophils % (Manual) Basophils % Basophils % (Manual) Myelocytes % (Man) Nucleated RBC % Manual Slide Review Platelet Estimate Platelet Comment Anticoagulation Therapy Puncture Site ABG pH ABG pCO2 at Pt Temp ABG pO2 at Pt Temp ABG HCO3 ABG O2 Sat (Measured) ABG O2 Content ABG Base Excess Atul Test Carboxyhemoglobin Methemoglobin O2 Delivery Device Oxygen Flow Rate Vent Mode Vent Rate Mechanical Rate PEEP Pressure Support Vent Sodium 152 H Potassium 3.3 L Chloride 122 H Carbon Dioxide 11 L Anion Gap 19 H BUN 31 H Creatinine 1.9 H Est GFR (CKD-EPI)AfAm 35.26 Est GFR (CKD-EPI)NonAf 30.42 POC Glucometer 394 287 Random Glucose 490 H* Lactic Acid Calcium 7.4 L Phosphorus 1.2 L Magnesium 2.4 Total Bilirubin AST ALT Alkaline Phosphatase Creatine Kinase Total Protein Albumin Urine Color Urine Appearance Urine pH Ur Specific Orrick Urine Protein Urine Glucose (UA) Urine Ketones Urine Blood Urine Nitrite Urine Bilirubin Urine Urobilinogen Ur Leukocyte Esterase Urine WBC (Auto) Urine RBC (Auto) Urine Casts (Auto) U Pathogenic Cast Auto U Epithel Cells (Auto) Urine Bacteria (Auto) Urine HCG, Qual Opiates Screen Methadone Screen Barbiturate Screen Phencyclidine Screen Ur Amphetamines Screen MDMA (Ecstasy) Screen Benzodiazepines Screen Cocaine Screen U Marijuana (THC) Screen Acetone, Qual 11/18/18 11/18/18 11/18/18 22:02 22:20 22:20 WBC Corrected WBC (auto) RBC Hgb Hct MCV MCH MCHC RDW Plt Count MPV Absolute Neuts (auto) Neutrophils % Neutrophils % (Manual) Band Neutrophils % Lymphocytes % Lymphocytes % (Manual) Monocytes % Monocytes % (Manual) Eosinophils % Eosinophils % (Manual) Basophils % Basophils % (Manual) Myelocytes % (Man) Nucleated RBC % Manual Slide Review Platelet Estimate Platelet Comment Anticoagulation Therapy Puncture Site ABG pH ABG pCO2 at Pt Temp ABG pO2 at Pt Temp ABG HCO3 ABG O2 Sat (Measured) ABG O2 Content ABG Base Excess Atul Test Carboxyhemoglobin Methemoglobin O2 Delivery Device Oxygen Flow Rate Vent Mode Vent Rate Mechanical Rate PEEP Pressure Support Vent Sodium 154 H Potassium 3.4 L Chloride 124 H Carbon Dioxide 16 L Anion Gap 15 BUN 27 H Creatinine 1.7 H Est GFR (CKD-EPI)AfAm 40.33 Est GFR (CKD-EPI)NonAf 34.80 POC Glucometer 189 Random Glucose 193 H Lactic Acid 8.1 H* Calcium 7.5 L Phosphorus 0.8 L* Magnesium 2.0 Total Bilirubin AST ALT Alkaline Phosphatase Creatine Kinase Total Protein Albumin Urine Color Urine Appearance Urine pH Ur Specific Orrick Urine Protein Urine Glucose (UA) Urine Ketones Urine Blood Urine Nitrite Urine Bilirubin Urine Urobilinogen Ur Leukocyte Esterase Urine WBC (Auto) Urine RBC (Auto) Urine Casts (Auto) U Pathogenic Cast Auto U Epithel Cells (Auto) Urine Bacteria (Auto) Urine HCG, Qual Opiates Screen Methadone Screen Barbiturate Screen Phencyclidine Screen Ur Amphetamines Screen MDMA (Ecstasy) Screen Benzodiazepines Screen Cocaine Screen U Marijuana (THC) Screen Acetone, Qual 11/18/18 11/18/18 11/19/18 22:50 23:09 00:03 WBC Corrected WBC (auto) RBC Hgb Hct MCV MCH MCHC RDW Plt Count MPV Absolute Neuts (auto) Neutrophils % Neutrophils % (Manual) Band Neutrophils % Lymphocytes % Lymphocytes % (Manual) Monocytes % Monocytes % (Manual) Eosinophils % Eosinophils % (Manual) Basophils % Basophils % (Manual) Myelocytes % (Man) Nucleated RBC % Manual Slide Review Platelet Estimate Platelet Comment Anticoagulation Therapy No Result Required. Puncture Site Right brachial ABG pH 7.33 L ABG pCO2 at Pt Temp 31.2 L ABG pO2 at Pt Temp 176 H ABG HCO3 15.9 L ABG O2 Sat (Measured) 99.7 H ABG O2 Content 10.1 L ABG Base Excess -8.7 L Atul Test Positive Carboxyhemoglobin Methemoglobin O2 Delivery Device No Result Required. Oxygen Flow Rate 50% Vent Mode A/c Vent Rate 16 Mechanical Rate No Result Required. PEEP 5.0 Pressure Support Vent 400 Sodium Potassium Chloride Carbon Dioxide Anion Gap BUN Creatinine Est GFR (CKD-EPI)AfAm Est GFR (CKD-EPI)NonAf POC Glucometer 208 177 Random Glucose Lactic Acid Calcium Phosphorus Magnesium Total Bilirubin AST ALT Alkaline Phosphatase Creatine Kinase Total Protein Albumin Urine Color Urine Appearance Urine pH Ur Specific Orrick Urine Protein Urine Glucose (UA) Urine Ketones Urine Blood Urine Nitrite Urine Bilirubin Urine Urobilinogen Ur Leukocyte Esterase Urine WBC (Auto) Urine RBC (Auto) Urine Casts (Auto) U Pathogenic Cast Auto U Epithel Cells (Auto) Urine Bacteria (Auto) Urine HCG, Qual Opiates Screen Methadone Screen Barbiturate Screen Phencyclidine Screen Ur Amphetamines Screen MDMA (Ecstasy) Screen Benzodiazepines Screen Cocaine Screen U Marijuana (THC) Screen Acetone, Qual 11/19/18 11/19/18 11/19/18 01:10 01:50 01:50 WBC Corrected WBC (auto) RBC Hgb Hct MCV MCH MCHC RDW Plt Count MPV Absolute Neuts (auto) Neutrophils % Neutrophils % (Manual) Band Neutrophils % Lymphocytes % Lymphocytes % (Manual) Monocytes % Monocytes % (Manual) Eosinophils % Eosinophils % (Manual) Basophils % Basophils % (Manual) Myelocytes % (Man) Nucleated RBC % Manual Slide Review Platelet Estimate Platelet Comment Anticoagulation Therapy Puncture Site ABG pH ABG pCO2 at Pt Temp ABG pO2 at Pt Temp ABG HCO3 ABG O2 Sat (Measured) ABG O2 Content ABG Base Excess Atul Test Carboxyhemoglobin Methemoglobin O2 Delivery Device Oxygen Flow Rate Vent Mode Vent Rate Mechanical Rate PEEP Pressure Support Vent Sodium 154 H Potassium 3.5 Chloride 125 H Carbon Dioxide 22 Anion Gap 7 L BUN 25 H Creatinine 1.1 Est GFR (CKD-EPI)AfAm 68.27 Est GFR (CKD-EPI)NonAf 58.91 POC Glucometer 139 Random Glucose 147 H Lactic Acid 2.4 H* Calcium 7.2 L Phosphorus Magnesium Total Bilirubin AST ALT Alkaline Phosphatase Creatine Kinase Total Protein Albumin Urine Color Urine Appearance Urine pH Ur Specific Orrick Urine Protein Urine Glucose (UA) Urine Ketones Urine Blood Urine Nitrite Urine Bilirubin Urine Urobilinogen Ur Leukocyte Esterase Urine WBC (Auto) Urine RBC (Auto) Urine Casts (Auto) U Pathogenic Cast Auto U Epithel Cells (Auto) Urine Bacteria (Auto) Urine HCG, Qual Opiates Screen Methadone Screen Barbiturate Screen Phencyclidine Screen Ur Amphetamines Screen MDMA (Ecstasy) Screen Benzodiazepines Screen Cocaine Screen U Marijuana (THC) Screen Acetone, Qual 11/19/18 11/19/18 11/19/18 01:53 03:10 03:20 WBC Corrected WBC (auto) RBC Hgb Hct MCV MCH MCHC RDW Plt Count MPV Absolute Neuts (auto) Neutrophils % Neutrophils % (Manual) Band Neutrophils % Lymphocytes % Lymphocytes % (Manual) Monocytes % Monocytes % (Manual) Eosinophils % Eosinophils % (Manual) Basophils % Basophils % (Manual) Myelocytes % (Man) Nucleated RBC % Manual Slide Review Platelet Estimate Platelet Comment Anticoagulation Therapy No Result Required. Puncture Site Right brachial ABG pH 7.32 L ABG pCO2 at Pt Temp 40.7 ABG pO2 at Pt Temp 171 H ABG HCO3 20.3 L ABG O2 Sat (Measured) 99.7 H ABG O2 Content 10.3 L ABG Base Excess -4.8 L Atul Test Positive Carboxyhemoglobin Methemoglobin O2 Delivery Device Alc Oxygen Flow Rate 40% Vent Mode No Result Required. Vent Rate No Result Required. Mechanical Rate No Result Required. PEEP 5.0 Pressure Support Vent 400 Sodium Potassium Chloride Carbon Dioxide Anion Gap BUN Creatinine Est GFR (CKD-EPI)AfAm Est GFR (CKD-EPI)NonAf POC Glucometer 144 172 Random Glucose Lactic Acid Calcium Phosphorus Magnesium Total Bilirubin AST ALT Alkaline Phosphatase Creatine Kinase Total Protein Albumin Urine Color Urine Appearance Urine pH Ur Specific Orrick Urine Protein Urine Glucose (UA) Urine Ketones Urine Blood Urine Nitrite Urine Bilirubin Urine Urobilinogen Ur Leukocyte Esterase Urine WBC (Auto) Urine RBC (Auto) Urine Casts (Auto) U Pathogenic Cast Auto U Epithel Cells (Auto) Urine Bacteria (Auto) Urine HCG, Qual Opiates Screen Methadone Screen Barbiturate Screen Phencyclidine Screen Ur Amphetamines Screen MDMA (Ecstasy) Screen Benzodiazepines Screen Cocaine Screen U Marijuana (THC) Screen Acetone, Qual 11/19/18 11/19/18 11/19/18 04:01 05:06 05:30 WBC 10.6 H Corrected WBC (auto) RBC 3.03 L Hgb 8.2 L Hct 25.2 L D MCV 82.9 D MCH 27.1 MCHC 32.7 RDW 17.6 H Plt Count 264 D MPV 7.5 D Absolute Neuts (auto) 8.1 H Neutrophils % 77.3 Neutrophils % (Manual) Band Neutrophils % Lymphocytes % 16.5 Lymphocytes % (Manual) Monocytes % 5.7 Monocytes % (Manual) Eosinophils % 0.3 Eosinophils % (Manual) Basophils % 0.2 Basophils % (Manual) Myelocytes % (Man) Nucleated RBC % 0 Manual Slide Review Platelet Estimate Platelet Comment Anticoagulation Therapy Puncture Site ABG pH ABG pCO2 at Pt Temp ABG pO2 at Pt Temp ABG HCO3 ABG O2 Sat (Measured) ABG O2 Content ABG Base Excess Atul Test Carboxyhemoglobin Methemoglobin O2 Delivery Device Oxygen Flow Rate Vent Mode Vent Rate Mechanical Rate PEEP Pressure Support Vent Sodium Potassium Chloride Carbon Dioxide Anion Gap BUN Creatinine Est GFR (CKD-EPI)AfAm Est GFR (CKD-EPI)NonAf POC Glucometer 177 189 Random Glucose Lactic Acid Calcium Phosphorus Magnesium Total Bilirubin AST ALT Alkaline Phosphatase Creatine Kinase Total Protein Albumin Urine Color Urine Appearance Urine pH Ur Specific Orrick Urine Protein Urine Glucose (UA) Urine Ketones Urine Blood Urine Nitrite Urine Bilirubin Urine Urobilinogen Ur Leukocyte Esterase Urine WBC (Auto) Urine RBC (Auto) Urine Casts (Auto) U Pathogenic Cast Auto U Epithel Cells (Auto) Urine Bacteria (Auto) Urine HCG, Qual Opiates Screen Methadone Screen Barbiturate Screen Phencyclidine Screen Ur Amphetamines Screen MDMA (Ecstasy) Screen Benzodiazepines Screen Cocaine Screen U Marijuana (THC) Screen Acetone, Qual 11/19/18 11/19/18 11/19/18 05:30 06:22 06:45 WBC Corrected WBC (auto) RBC Hgb Hct MCV MCH MCHC RDW Plt Count MPV Absolute Neuts (auto) Neutrophils % Neutrophils % (Manual) Band Neutrophils % Lymphocytes % Lymphocytes % (Manual) Monocytes % Monocytes % (Manual) Eosinophils % Eosinophils % (Manual) Basophils % Basophils % (Manual) Myelocytes % (Man) Nucleated RBC % Manual Slide Review Platelet Estimate Platelet Comment Anticoagulation Therapy No Result Required. Puncture Site Right brachial ABG pH 7.31 L ABG pCO2 at Pt Temp 39.2 ABG pO2 at Pt Temp 190 H ABG HCO3 19.0 L ABG O2 Sat (Measured) 99.5 H ABG O2 Content 12.2 L ABG Base Excess -6.2 L Atul Test Positive Carboxyhemoglobin Methemoglobin O2 Delivery Device A/l Oxygen Flow Rate 40% Vent Mode No Result Required. Vent Rate No Result Required. Mechanical Rate No Result Required. PEEP 5.0 Pressure Support Vent No Result Required. Sodium 152 H Potassium 3.8 Chloride 122 H Carbon Dioxide 21 Anion Gap 8 BUN 22 H Creatinine 1.3 Est GFR (CKD-EPI)AfAm 55.79 Est GFR (CKD-EPI)NonAf 48.13 POC Glucometer 170 Random Glucose 174 H Lactic Acid Calcium 7.2 L Phosphorus 4.2 Magnesium 1.6 L Total Bilirubin 0.2 AST 26 ALT 21 Alkaline Phosphatase 62 Creatine Kinase Total Protein 4.6 L Albumin 2.4 L Urine Color Urine Appearance Urine pH Ur Specific Orrick Urine Protein Urine Glucose (UA) Urine Ketones Urine Blood Urine Nitrite Urine Bilirubin Urine Urobilinogen Ur Leukocyte Esterase Urine WBC (Auto) Urine RBC (Auto) Urine Casts (Auto) U Pathogenic Cast Auto U Epithel Cells (Auto) Urine Bacteria (Auto) Urine HCG, Qual Opiates Screen Methadone Screen Barbiturate Screen Phencyclidine Screen Ur Amphetamines Screen MDMA (Ecstasy) Screen Benzodiazepines Screen Cocaine Screen U Marijuana (THC) Screen Acetone, Qual 11/19/18 11/19/18 11/19/18 07:29 08:33 09:15 WBC Corrected WBC (auto) RBC Hgb Hct MCV MCH MCHC RDW Plt Count MPV Absolute Neuts (auto) Neutrophils % Neutrophils % (Manual) Band Neutrophils % Lymphocytes % Lymphocytes % (Manual) Monocytes % Monocytes % (Manual) Eosinophils % Eosinophils % (Manual) Basophils % Basophils % (Manual) Myelocytes % (Man) Nucleated RBC % Manual Slide Review Platelet Estimate Platelet Comment Anticoagulation Therapy Puncture Site ABG pH ABG pCO2 at Pt Temp ABG pO2 at Pt Temp ABG HCO3 ABG O2 Sat (Measured) ABG O2 Content ABG Base Excess Atul Test Carboxyhemoglobin Methemoglobin O2 Delivery Device Oxygen Flow Rate Vent Mode Vent Rate Mechanical Rate PEEP Pressure Support Vent Sodium 152 H Potassium 3.6 Chloride 123 H Carbon Dioxide 22 Anion Gap 7 L BUN 22 H Creatinine 1.2 Est GFR (CKD-EPI)AfAm 61.46 Est GFR (CKD-EPI)NonAf 53.02 POC Glucometer 162 165 Random Glucose 145 H Lactic Acid Calcium 7.1 L Phosphorus 3.4 Magnesium 1.8 Total Bilirubin AST ALT Alkaline Phosphatase Creatine Kinase Total Protein Albumin Urine Color Urine Appearance Urine pH Ur Specific Orrick Urine Protein Urine Glucose (UA) Urine Ketones Urine Blood Urine Nitrite Urine Bilirubin Urine Urobilinogen Ur Leukocyte Esterase Urine WBC (Auto) Urine RBC (Auto) Urine Casts (Auto) U Pathogenic Cast Auto U Epithel Cells (Auto) Urine Bacteria (Auto) Urine HCG, Qual Opiates Screen Methadone Screen Barbiturate Screen Phencyclidine Screen Ur Amphetamines Screen MDMA (Ecstasy) Screen Benzodiazepines Screen Cocaine Screen U Marijuana (THC) Screen Acetone, Qual 11/19/18 11/19/18 11/19/18 09:15 09:30 10:32 WBC Corrected WBC (auto) RBC Hgb Hct MCV MCH MCHC RDW Plt Count MPV Absolute Neuts (auto) Neutrophils % Neutrophils % (Manual) Band Neutrophils % Lymphocytes % Lymphocytes % (Manual) Monocytes % Monocytes % (Manual) Eosinophils % Eosinophils % (Manual) Basophils % Basophils % (Manual) Myelocytes % (Man) Nucleated RBC % Manual Slide Review Platelet Estimate Platelet Comment Anticoagulation Therapy Puncture Site ABG pH ABG pCO2 at Pt Temp ABG pO2 at Pt Temp ABG HCO3 ABG O2 Sat (Measured) ABG O2 Content ABG Base Excess Atul Test Carboxyhemoglobin Methemoglobin O2 Delivery Device Oxygen Flow Rate Vent Mode Vent Rate Mechanical Rate PEEP Pressure Support Vent Sodium Potassium Chloride Carbon Dioxide Anion Gap BUN Creatinine Est GFR (CKD-EPI)AfAm Est GFR (CKD-EPI)NonAf POC Glucometer 133 141 Random Glucose Lactic Acid 3.0 H* Calcium Phosphorus Magnesium Total Bilirubin AST ALT Alkaline Phosphatase Creatine Kinase Total Protein Albumin Urine Color Urine Appearance Urine pH Ur Specific Orrick Urine Protein Urine Glucose (UA) Urine Ketones Urine Blood Urine Nitrite Urine Bilirubin Urine Urobilinogen Ur Leukocyte Esterase Urine WBC (Auto) Urine RBC (Auto) Urine Casts (Auto) U Pathogenic Cast Auto U Epithel Cells (Auto) Urine Bacteria (Auto) Urine HCG, Qual Opiates Screen Methadone Screen Barbiturate Screen Phencyclidine Screen Ur Amphetamines Screen MDMA (Ecstasy) Screen Benzodiazepines Screen Cocaine Screen U Marijuana (THC) Screen Acetone, Qual 11/19/18 11:34 WBC Corrected WBC (auto) RBC Hgb Hct MCV MCH MCHC RDW Plt Count MPV Absolute Neuts (auto) Neutrophils % Neutrophils % (Manual) Band Neutrophils % Lymphocytes % Lymphocytes % (Manual) Monocytes % Monocytes % (Manual) Eosinophils % Eosinophils % (Manual) Basophils % Basophils % (Manual) Myelocytes % (Man) Nucleated RBC % Manual Slide Review Platelet Estimate Platelet Comment Anticoagulation Therapy Puncture Site ABG pH ABG pCO2 at Pt Temp ABG pO2 at Pt Temp ABG HCO3 ABG O2 Sat (Measured) ABG O2 Content ABG Base Excess Atul Test Carboxyhemoglobin Methemoglobin O2 Delivery Device Oxygen Flow Rate Vent Mode Vent Rate Mechanical Rate PEEP Pressure Support Vent Sodium Potassium Chloride Carbon Dioxide Anion Gap BUN Creatinine Est GFR (CKD-EPI)AfAm Est GFR (CKD-EPI)NonAf POC Glucometer 134 Random Glucose Lactic Acid Calcium Phosphorus Magnesium Total Bilirubin AST ALT Alkaline Phosphatase Creatine Kinase Total Protein Albumin Urine Color Urine Appearance Urine pH Ur Specific Orrick Urine Protein Urine Glucose (UA) Urine Ketones Urine Blood Urine Nitrite Urine Bilirubin Urine Urobilinogen Ur Leukocyte Esterase Urine WBC (Auto) Urine RBC (Auto) Urine Casts (Auto) U Pathogenic Cast Auto U Epithel Cells (Auto) Urine Bacteria (Auto) Urine HCG, Qual Opiates Screen Methadone Screen Barbiturate Screen Phencyclidine Screen Ur Amphetamines Screen MDMA (Ecstasy) Screen Benzodiazepines Screen Cocaine Screen U Marijuana (THC) Screen Acetone, Qual ASSESSMENT AND PLAN: Diabetic Ketoacidosis Severe Metabolic Acidosis Acute Respiratory Failure Hypovolemic Shock Acute Kidney Injury r/o Sepsis HTN Hyperlipidemia Noncompliance - IVF: D5 - IV Insulin drip - Follow BMP - Follow ABG - Can stop ABX - Follow cultures - monitor urine output, creatinine - Wean to extubate - ICU monitoring Dr Otero Critical care time spent in reviewing chart, evaluating patient and formulating plan 40 min
[2018-11-19 12:24] LABS: INR 0.94 (0.83-1.09); PROTHROMBIN TIME (PATIENT) 11.1 SEC (9.7-13.0)
--- NOTE | 2018-11-19 12:33 | PN ---
Physical Exam: SUBJECTIVE: Patient seen and examined at bedside this morning. Patient is intubated and sedated. Anion gap closed overnight but patient remained intubated , insulin drip continued, IVF switched to D5-1/2NS. OBJECTIVE: Vital Signs Temperature 98.6 F 11/19/18 10:00 Pulse Rate 93 H 11/19/18 10:00 Respiratory Rate 16 11/19/18 12:07 Blood Pressure 128/65 11/19/18 10:00 O2 Sat by Pulse Oximetry (%) 98 11/19/18 12:07 GENERAL: Intubated, sedated HEAD: Normal with no signs of trauma. EYES: PERRLA, EOMI, sclera anicteric, conjunctiva clear. EARS, NOSE, THROAT: oropharynx clear without exudates. Dry mucous membranes. NECK: supple, Right IJ cath in place LUNGS: Breath sounds equal, clear to auscultation bilaterally. HEART: Regular rate and rhythm, normal S1 and S2 without murmur, rub or gallop. ABDOMEN: Soft, nontender, not distended, normoactive bowel sounds. +midline scar in the periumbilical area UPPER EXTREMITIES: 2+ pulses, warm, well-perfused. No peripheral edema. LOWER EXTREMITIES: 2+ pulses, warm, well-perfused. No peripheral edema. NEUROLOGICAL: intubated, sedated Laboratory Results - last 24 hr 11/18/18 11/18/18 11/18/18 12:50 12:51 13:02 WBC Cancelled Corrected WBC (auto) Cancelled RBC Cancelled Hgb Cancelled Hct Cancelled MCV Cancelled MCH Cancelled MCHC Cancelled RDW Cancelled Plt Count Cancelled MPV Cancelled Absolute Neuts (auto) Neutrophils % Neutrophils % (Manual) Band Neutrophils % Lymphocytes % Lymphocytes % (Manual) Monocytes % Monocytes % (Manual) Eosinophils % Eosinophils % (Manual) Basophils % Basophils % (Manual) Myelocytes % (Man) Nucleated RBC % Manual Slide Review Cancelled Platelet Estimate Platelet Comment Cancelled Anticoagulation Therapy Puncture Site ABG pH ABG pCO2 at Pt Temp ABG pO2 at Pt Temp ABG HCO3 ABG O2 Sat (Measured) ABG O2 Content ABG Base Excess Atul Test Carboxyhemoglobin Methemoglobin O2 Delivery Device Oxygen Flow Rate Vent Mode Vent Rate Mechanical Rate PEEP Pressure Support Vent Sodium Potassium Chloride Carbon Dioxide Anion Gap BUN Creatinine Est GFR (CKD-EPI)AfAm Est GFR (CKD-EPI)NonAf POC Glucometer Random Glucose 1628 H* Lactic Acid Calcium Phosphorus Magnesium Total Bilirubin AST ALT Alkaline Phosphatase Creatine Kinase Total Protein Albumin Urine Color Urine Appearance Urine pH Ur Specific Black Urine Protein Urine Glucose (UA) Urine Ketones Urine Blood Urine Nitrite Urine Bilirubin Urine Urobilinogen Ur Leukocyte Esterase Urine WBC (Auto) Urine RBC (Auto) Urine Casts (Auto) U Pathogenic Cast Auto U Epithel Cells (Auto) Urine Bacteria (Auto) Urine HCG, Qual Opiates Screen Methadone Screen Barbiturate Screen Phencyclidine Screen Ur Amphetamines Screen MDMA (Ecstasy) Screen Benzodiazepines Screen Cocaine Screen U Marijuana (THC) Screen Acetone, Qual Positive large 3+ H 11/18/18 11/18/18 11/18/18 13:02 13:02 13:10 WBC Corrected WBC (auto) RBC Hgb Hct MCV MCH MCHC RDW Plt Count MPV Absolute Neuts (auto) Neutrophils % Neutrophils % (Manual) Band Neutrophils % Lymphocytes % Lymphocytes % (Manual) Monocytes % Monocytes % (Manual) Eosinophils % Eosinophils % (Manual) Basophils % Basophils % (Manual) Myelocytes % (Man) Nucleated RBC % Manual Slide Review Platelet Estimate Platelet Comment Anticoagulation Therapy No Result Required. Puncture Site No Result Required. ABG pH 6.85 L* ABG pCO2 at Pt Temp 15.5 L ABG pO2 at Pt Temp 87.3 ABG HCO3 2.5 L ABG O2 Sat (Measured) 88.9 L ABG O2 Content 9.6 L* ABG Base Excess -29.0 L Atul Test No Result Required. Carboxyhemoglobin 1.1 Methemoglobin 0.9 O2 Delivery Device No Result Required. Oxygen Flow Rate No Result Required. Vent Mode No Result Required. Vent Rate No Result Required. Mechanical Rate No Result Required. PEEP Pressure Support Vent No Result Required. Sodium 128 L Potassium 8.9 H* Chloride 93 L Carbon Dioxide < 6 L Anion Gap 29 H BUN 42 H Creatinine 2.7 H Est GFR (CKD-EPI)AfAm 23.06 Est GFR (CKD-EPI)NonAf 19.89 POC Glucometer Random Glucose 1628 H* Lactic Acid Calcium 8.0 L Phosphorus Magnesium Total Bilirubin 1.8 H AST 30 ALT 20 Alkaline Phosphatase 88 Creatine Kinase Total Protein 5.8 L Albumin 3.3 L Urine Color Yellow Urine Appearance Clear Urine pH 5.0 Ur Specific Black Urine Protein Trace Urine Glucose (UA) 2+ H Urine Ketones 4+ H Urine Blood Negative Urine Nitrite Negative Urine Bilirubin Negative Urine Urobilinogen 0.2 Ur Leukocyte Esterase Negative Urine WBC (Auto) Urine RBC (Auto) Urine Casts (Auto) U Pathogenic Cast Auto U Epithel Cells (Auto) Urine Bacteria (Auto) Urine HCG, Qual Opiates Screen Methadone Screen Barbiturate Screen Phencyclidine Screen Ur Amphetamines Screen MDMA (Ecstasy) Screen Benzodiazepines Screen Cocaine Screen U Marijuana (THC) Screen Acetone, Qual 11/18/18 11/18/18 11/18/18 13:24 14:20 15:25 WBC Corrected WBC (auto) RBC Hgb Hct MCV MCH MCHC RDW Plt Count MPV Absolute Neuts (auto) Neutrophils % Neutrophils % (Manual) Band Neutrophils % Lymphocytes % Lymphocytes % (Manual) Monocytes % Monocytes % (Manual) Eosinophils % Eosinophils % (Manual) Basophils % Basophils % (Manual) Myelocytes % (Man) Nucleated RBC % Manual Slide Review Platelet Estimate Platelet Comment Anticoagulation Therapy Puncture Site ABG pH ABG pCO2 at Pt Temp ABG pO2 at Pt Temp ABG HCO3 ABG O2 Sat (Measured) ABG O2 Content ABG Base Excess Atul Test Carboxyhemoglobin Methemoglobin O2 Delivery Device Oxygen Flow Rate Vent Mode Vent Rate Mechanical Rate PEEP Pressure Support Vent Sodium Potassium Chloride Carbon Dioxide Anion Gap BUN Creatinine Est GFR (CKD-EPI)AfAm Est GFR (CKD-EPI)NonAf POC Glucometer > 600 Random Glucose Lactic Acid Calcium Phosphorus Magnesium Total Bilirubin AST ALT Alkaline Phosphatase Creatine Kinase 55 Total Protein Albumin Urine Color Urine Appearance Urine pH Ur Specific Black Urine Protein Urine Glucose (UA) Urine Ketones Urine Blood Urine Nitrite Urine Bilirubin Urine Urobilinogen Ur Leukocyte Esterase Urine WBC (Auto) Urine RBC (Auto) Urine Casts (Auto) U Pathogenic Cast Auto U Epithel Cells (Auto) Urine Bacteria (Auto) Urine HCG, Qual Negative Opiates Screen Methadone Screen Barbiturate Screen Phencyclidine Screen Ur Amphetamines Screen MDMA (Ecstasy) Screen Benzodiazepines Screen Cocaine Screen U Marijuana (THC) Screen Acetone, Qual 11/18/18 11/18/18 11/18/18 16:23 17:00 17:00 WBC Corrected WBC (auto) RBC Hgb Hct MCV MCH MCHC RDW Plt Count MPV Absolute Neuts (auto) Neutrophils % Neutrophils % (Manual) Band Neutrophils % Lymphocytes % Lymphocytes % (Manual) Monocytes % Monocytes % (Manual) Eosinophils % Eosinophils % (Manual) Basophils % Basophils % (Manual) Myelocytes % (Man) Nucleated RBC % Manual Slide Review Platelet Estimate Platelet Comment Anticoagulation Therapy Puncture Site ABG pH ABG pCO2 at Pt Temp ABG pO2 at Pt Temp ABG HCO3 ABG O2 Sat (Measured) ABG O2 Content ABG Base Excess Atul Test Carboxyhemoglobin Methemoglobin O2 Delivery Device Oxygen Flow Rate Vent Mode Vent Rate Mechanical Rate PEEP Pressure Support Vent Sodium 151 H Potassium 3.3 L Chloride 119 H Carbon Dioxide 9 L Anion Gap 23 H BUN 35 H Creatinine 2.1 H Est GFR (CKD-EPI)AfAm 31.24 Est GFR (CKD-EPI)NonAf 26.96 POC Glucometer > 600 Random Glucose 788 H* Lactic Acid 4.6 H* Calcium 7.7 L Phosphorus 3.3 Magnesium 2.6 H Total Bilirubin AST ALT Alkaline Phosphatase Creatine Kinase Total Protein Albumin Urine Color Urine Appearance Urine pH Ur Specific Black Urine Protein Urine Glucose (UA) Urine Ketones Urine Blood Urine Nitrite Urine Bilirubin Urine Urobilinogen Ur Leukocyte Esterase Urine WBC (Auto) Urine RBC (Auto) Urine Casts (Auto) U Pathogenic Cast Auto U Epithel Cells (Auto) Urine Bacteria (Auto) Urine HCG, Qual Opiates Screen Methadone Screen Barbiturate Screen Phencyclidine Screen Ur Amphetamines Screen MDMA (Ecstasy) Screen Benzodiazepines Screen Cocaine Screen U Marijuana (THC) Screen Acetone, Qual 11/18/18 11/18/18 11/18/18 17:00 17:30 17:37 WBC 27.6 H Corrected WBC (auto) RBC 3.32 L Hgb 8.8 L Hct 30.4 L MCV 91.4 MCH 26.4 MCHC 28.9 L RDW 17.9 H Plt Count 336 D MPV 8.5 D Absolute Neuts (auto) 21.1 H Neutrophils % 76.6 Neutrophils % (Manual) 58.0 Band Neutrophils % 15.0 Lymphocytes % 18.2 Lymphocytes % (Manual) 23.0 D Monocytes % 4.8 Monocytes % (Manual) 2 L Eosinophils % 0.2 D Eosinophils % (Manual) 1.0 D Basophils % 0.2 Basophils % (Manual) 0.0 Myelocytes % (Man) 1 D Nucleated RBC % 0 Manual Slide Review Platelet Estimate Adequate Platelet Comment Anticoagulation Therapy No Result Required. Puncture Site No Result Required. ABG pH 7.09 L* ABG pCO2 at Pt Temp 25.0 L ABG pO2 at Pt Temp 218 H ABG HCO3 7.2 L ABG O2 Sat (Measured) 98.9 H ABG O2 Content 12.6 L ABG Base Excess -21.2 L Atul Test No Result Required. Carboxyhemoglobin Methemoglobin O2 Delivery Device No Result Required. Oxygen Flow Rate Yes Vent Mode No Result Required. Vent Rate No Result Required. Mechanical Rate No Result Required. PEEP 5.0 Pressure Support Vent No Result Required. Sodium Potassium Chloride Carbon Dioxide Anion Gap BUN Creatinine Est GFR (CKD-EPI)AfAm Est GFR (CKD-EPI)NonAf POC Glucometer > 600 Random Glucose Lactic Acid Calcium Phosphorus Magnesium Total Bilirubin AST ALT Alkaline Phosphatase Creatine Kinase Total Protein Albumin Urine Color Urine Appearance Urine pH Ur Specific Black Urine Protein Urine Glucose (UA) Urine Ketones Urine Blood Urine Nitrite Urine Bilirubin Urine Urobilinogen Ur Leukocyte Esterase Urine WBC (Auto) Urine RBC (Auto) Urine Casts (Auto) U Pathogenic Cast Auto U Epithel Cells (Auto) Urine Bacteria (Auto) Urine HCG, Qual Opiates Screen Methadone Screen Barbiturate Screen Phencyclidine Screen Ur Amphetamines Screen MDMA (Ecstasy) Screen Benzodiazepines Screen Cocaine Screen U Marijuana (THC) Screen Acetone, Qual 11/18/18 11/18/18 11/18/18 17:43 17:43 18:31 WBC Corrected WBC (auto) RBC Hgb Hct MCV MCH MCHC RDW Plt Count MPV Absolute Neuts (auto) Neutrophils % Neutrophils % (Manual) Band Neutrophils % Lymphocytes % Lymphocytes % (Manual) Monocytes % Monocytes % (Manual) Eosinophils % Eosinophils % (Manual) Basophils % Basophils % (Manual) Myelocytes % (Man) Nucleated RBC % Manual Slide Review Platelet Estimate Platelet Comment Anticoagulation Therapy Puncture Site ABG pH ABG pCO2 at Pt Temp ABG pO2 at Pt Temp ABG HCO3 ABG O2 Sat (Measured) ABG O2 Content ABG Base Excess Atul Test Carboxyhemoglobin Methemoglobin O2 Delivery Device Oxygen Flow Rate Vent Mode Vent Rate Mechanical Rate PEEP Pressure Support Vent Sodium Potassium Chloride Carbon Dioxide Anion Gap BUN Creatinine Est GFR (CKD-EPI)AfAm Est GFR (CKD-EPI)NonAf POC Glucometer 558 Random Glucose Lactic Acid Calcium Phosphorus Magnesium Total Bilirubin AST ALT Alkaline Phosphatase Creatine Kinase Total Protein Albumin Urine Color Yellow Urine Appearance Cloudy Urine pH 5.0 Ur Specific Black 1.024 Urine Protein 1+ H Urine Glucose (UA) 3+ H Urine Ketones 2+ H Urine Blood Trace Urine Nitrite Negative Urine Bilirubin Negative Urine Urobilinogen 0.2 Ur Leukocyte Esterase Negative Urine WBC (Auto) 7 Urine RBC (Auto) 13.0 Urine Casts (Auto) 35 U Pathogenic Cast Auto Granular casts U Epithel Cells (Auto) 3.5 Urine Bacteria (Auto) 10.7 Urine HCG, Qual Opiates Screen Negative Methadone Screen Negative Barbiturate Screen Negative Phencyclidine Screen Negative Ur Amphetamines Screen Negative MDMA (Ecstasy) Screen Negative Benzodiazepines Screen Negative Cocaine Screen Negative U Marijuana (THC) Screen Negative Acetone, Qual 11/18/18 11/18/18 11/18/18 19:00 20:07 21:14 WBC Corrected WBC (auto) RBC Hgb Hct MCV MCH MCHC RDW Plt Count MPV Absolute Neuts (auto) Neutrophils % Neutrophils % (Manual) Band Neutrophils % Lymphocytes % Lymphocytes % (Manual) Monocytes % Monocytes % (Manual) Eosinophils % Eosinophils % (Manual) Basophils % Basophils % (Manual) Myelocytes % (Man) Nucleated RBC % Manual Slide Review Platelet Estimate Platelet Comment Anticoagulation Therapy Puncture Site ABG pH ABG pCO2 at Pt Temp ABG pO2 at Pt Temp ABG HCO3 ABG O2 Sat (Measured) ABG O2 Content ABG Base Excess Atul Test Carboxyhemoglobin Methemoglobin O2 Delivery Device Oxygen Flow Rate Vent Mode Vent Rate Mechanical Rate PEEP Pressure Support Vent Sodium 152 H Potassium 3.3 L Chloride 122 H Carbon Dioxide 11 L Anion Gap 19 H BUN 31 H Creatinine 1.9 H Est GFR (CKD-EPI)AfAm 35.26 Est GFR (CKD-EPI)NonAf 30.42 POC Glucometer 394 287 Random Glucose 490 H* Lactic Acid Calcium 7.4 L Phosphorus 1.2 L Magnesium 2.4 Total Bilirubin AST ALT Alkaline Phosphatase Creatine Kinase Total Protein Albumin Urine Color Urine Appearance Urine pH Ur Specific Black Urine Protein Urine Glucose (UA) Urine Ketones Urine Blood Urine Nitrite Urine Bilirubin Urine Urobilinogen Ur Leukocyte Esterase Urine WBC (Auto) Urine RBC (Auto) Urine Casts (Auto) U Pathogenic Cast Auto U Epithel Cells (Auto) Urine Bacteria (Auto) Urine HCG, Qual Opiates Screen Methadone Screen Barbiturate Screen Phencyclidine Screen Ur Amphetamines Screen MDMA (Ecstasy) Screen Benzodiazepines Screen Cocaine Screen U Marijuana (THC) Screen Acetone, Qual 11/18/18 11/18/18 11/18/18 22:02 22:20 22:20 WBC Corrected WBC (auto) RBC Hgb Hct MCV MCH MCHC RDW Plt Count MPV Absolute Neuts (auto) Neutrophils % Neutrophils % (Manual) Band Neutrophils % Lymphocytes % Lymphocytes % (Manual) Monocytes % Monocytes % (Manual) Eosinophils % Eosinophils % (Manual) Basophils % Basophils % (Manual) Myelocytes % (Man) Nucleated RBC % Manual Slide Review Platelet Estimate Platelet Comment Anticoagulation Therapy Puncture Site ABG pH ABG pCO2 at Pt Temp ABG pO2 at Pt Temp ABG HCO3 ABG O2 Sat (Measured) ABG O2 Content ABG Base Excess Atul Test Carboxyhemoglobin Methemoglobin O2 Delivery Device Oxygen Flow Rate Vent Mode Vent Rate Mechanical Rate PEEP Pressure Support Vent Sodium 154 H Potassium 3.4 L Chloride 124 H Carbon Dioxide 16 L Anion Gap 15 BUN 27 H Creatinine 1.7 H Est GFR (CKD-EPI)AfAm 40.33 Est GFR (CKD-EPI)NonAf 34.80 POC Glucometer 189 Random Glucose 193 H Lactic Acid 8.1 H* Calcium 7.5 L Phosphorus 0.8 L* Magnesium 2.0 Total Bilirubin AST ALT Alkaline Phosphatase Creatine Kinase Total Protein Albumin Urine Color Urine Appearance Urine pH Ur Specific Black Urine Protein Urine Glucose (UA) Urine Ketones Urine Blood Urine Nitrite Urine Bilirubin Urine Urobilinogen Ur Leukocyte Esterase Urine WBC (Auto) Urine RBC (Auto) Urine Casts (Auto) U Pathogenic Cast Auto U Epithel Cells (Auto) Urine Bacteria (Auto) Urine HCG, Qual Opiates Screen Methadone Screen Barbiturate Screen Phencyclidine Screen Ur Amphetamines Screen MDMA (Ecstasy) Screen Benzodiazepines Screen Cocaine Screen U Marijuana (THC) Screen Acetone, Qual 11/18/18 11/18/18 11/19/18 22:50 23:09 00:03 WBC Corrected WBC (auto) RBC Hgb Hct MCV MCH MCHC RDW Plt Count MPV Absolute Neuts (auto) Neutrophils % Neutrophils % (Manual) Band Neutrophils % Lymphocytes % Lymphocytes % (Manual) Monocytes % Monocytes % (Manual) Eosinophils % Eosinophils % (Manual) Basophils % Basophils % (Manual) Myelocytes % (Man) Nucleated RBC % Manual Slide Review Platelet Estimate Platelet Comment Anticoagulation Therapy No Result Required. Puncture Site Right brachial ABG pH 7.33 L ABG pCO2 at Pt Temp 31.2 L ABG pO2 at Pt Temp 176 H ABG HCO3 15.9 L ABG O2 Sat (Measured) 99.7 H ABG O2 Content 10.1 L ABG Base Excess -8.7 L Atul Test Positive Carboxyhemoglobin Methemoglobin O2 Delivery Device No Result Required. Oxygen Flow Rate 50% Vent Mode A/c Vent Rate 16 Mechanical Rate No Result Required. PEEP 5.0 Pressure Support Vent 400 Sodium Potassium Chloride Carbon Dioxide Anion Gap BUN Creatinine Est GFR (CKD-EPI)AfAm Est GFR (CKD-EPI)NonAf POC Glucometer 208 177 Random Glucose Lactic Acid Calcium Phosphorus Magnesium Total Bilirubin AST ALT Alkaline Phosphatase Creatine Kinase Total Protein Albumin Urine Color Urine Appearance Urine pH Ur Specific Black Urine Protein Urine Glucose (UA) Urine Ketones Urine Blood Urine Nitrite Urine Bilirubin Urine Urobilinogen Ur Leukocyte Esterase Urine WBC (Auto) Urine RBC (Auto) Urine Casts (Auto) U Pathogenic Cast Auto U Epithel Cells (Auto) Urine Bacteria (Auto) Urine HCG, Qual Opiates Screen Methadone Screen Barbiturate Screen Phencyclidine Screen Ur Amphetamines Screen MDMA (Ecstasy) Screen Benzodiazepines Screen Cocaine Screen U Marijuana (THC) Screen Acetone, Qual 11/19/18 11/19/18 11/19/18 01:10 01:50 01:50 WBC Corrected WBC (auto) RBC Hgb Hct MCV MCH MCHC RDW Plt Count MPV Absolute Neuts (auto) Neutrophils % Neutrophils % (Manual) Band Neutrophils % Lymphocytes % Lymphocytes % (Manual) Monocytes % Monocytes % (Manual) Eosinophils % Eosinophils % (Manual) Basophils % Basophils % (Manual) Myelocytes % (Man) Nucleated RBC % Manual Slide Review Platelet Estimate Platelet Comment Anticoagulation Therapy Puncture Site ABG pH ABG pCO2 at Pt Temp ABG pO2 at Pt Temp ABG HCO3 ABG O2 Sat (Measured) ABG O2 Content ABG Base Excess Atul Test Carboxyhemoglobin Methemoglobin O2 Delivery Device Oxygen Flow Rate Vent Mode Vent Rate Mechanical Rate PEEP Pressure Support Vent Sodium 154 H Potassium 3.5 Chloride 125 H Carbon Dioxide 22 Anion Gap 7 L BUN 25 H Creatinine 1.1 Est GFR (CKD-EPI)AfAm 68.27 Est GFR (CKD-EPI)NonAf 58.91 POC Glucometer 139 Random Glucose 147 H Lactic Acid 2.4 H* Calcium 7.2 L Phosphorus Magnesium Total Bilirubin AST ALT Alkaline Phosphatase Creatine Kinase Total Protein Albumin Urine Color Urine Appearance Urine pH Ur Specific Black Urine Protein Urine Glucose (UA) Urine Ketones Urine Blood Urine Nitrite Urine Bilirubin Urine Urobilinogen Ur Leukocyte Esterase Urine WBC (Auto) Urine RBC (Auto) Urine Casts (Auto) U Pathogenic Cast Auto U Epithel Cells (Auto) Urine Bacteria (Auto) Urine HCG, Qual Opiates Screen Methadone Screen Barbiturate Screen Phencyclidine Screen Ur Amphetamines Screen MDMA (Ecstasy) Screen Benzodiazepines Screen Cocaine Screen U Marijuana (THC) Screen Acetone, Qual 11/19/18 11/19/18 11/19/18 01:53 03:10 03:20 WBC Corrected WBC (auto) RBC Hgb Hct MCV MCH MCHC RDW Plt Count MPV Absolute Neuts (auto) Neutrophils % Neutrophils % (Manual) Band Neutrophils % Lymphocytes % Lymphocytes % (Manual) Monocytes % Monocytes % (Manual) Eosinophils % Eosinophils % (Manual) Basophils % Basophils % (Manual) Myelocytes % (Man) Nucleated RBC % Manual Slide Review Platelet Estimate Platelet Comment Anticoagulation Therapy No Result Required. Puncture Site Right brachial ABG pH 7.32 L ABG pCO2 at Pt Temp 40.7 ABG pO2 at Pt Temp 171 H ABG HCO3 20.3 L ABG O2 Sat (Measured) 99.7 H ABG O2 Content 10.3 L ABG Base Excess -4.8 L Atul Test Positive Carboxyhemoglobin Methemoglobin O2 Delivery Device Alc Oxygen Flow Rate 40% Vent Mode No Result Required. Vent Rate No Result Required. Mechanical Rate No Result Required. PEEP 5.0 Pressure Support Vent 400 Sodium Potassium Chloride Carbon Dioxide Anion Gap BUN Creatinine Est GFR (CKD-EPI)AfAm Est GFR (CKD-EPI)NonAf POC Glucometer 144 172 Random Glucose Lactic Acid Calcium Phosphorus Magnesium Total Bilirubin AST ALT Alkaline Phosphatase Creatine Kinase Total Protein Albumin Urine Color Urine Appearance Urine pH Ur Specific Black Urine Protein Urine Glucose (UA) Urine Ketones Urine Blood Urine Nitrite Urine Bilirubin Urine Urobilinogen Ur Leukocyte Esterase Urine WBC (Auto) Urine RBC (Auto) Urine Casts (Auto) U Pathogenic Cast Auto U Epithel Cells (Auto) Urine Bacteria (Auto) Urine HCG, Qual Opiates Screen Methadone Screen Barbiturate Screen Phencyclidine Screen Ur Amphetamines Screen MDMA (Ecstasy) Screen Benzodiazepines Screen Cocaine Screen U Marijuana (THC) Screen Acetone, Qual 11/19/18 11/19/18 11/19/18 04:01 05:06 05:30 WBC 10.6 H Corrected WBC (auto) RBC 3.03 L Hgb 8.2 L Hct 25.2 L D MCV 82.9 D MCH 27.1 MCHC 32.7 RDW 17.6 H Plt Count 264 D MPV 7.5 D Absolute Neuts (auto) 8.1 H Neutrophils % 77.3 Neutrophils % (Manual) Band Neutrophils % Lymphocytes % 16.5 Lymphocytes % (Manual) Monocytes % 5.7 Monocytes % (Manual) Eosinophils % 0.3 Eosinophils % (Manual) Basophils % 0.2 Basophils % (Manual) Myelocytes % (Man) Nucleated RBC % 0 Manual Slide Review Platelet Estimate Platelet Comment Anticoagulation Therapy Puncture Site ABG pH ABG pCO2 at Pt Temp ABG pO2 at Pt Temp ABG HCO3 ABG O2 Sat (Measured) ABG O2 Content ABG Base Excess Atul Test Carboxyhemoglobin Methemoglobin O2 Delivery Device Oxygen Flow Rate Vent Mode Vent Rate Mechanical Rate PEEP Pressure Support Vent Sodium Potassium Chloride Carbon Dioxide Anion Gap BUN Creatinine Est GFR (CKD-EPI)AfAm Est GFR (CKD-EPI)NonAf POC Glucometer 177 189 Random Glucose Lactic Acid Calcium Phosphorus Magnesium Total Bilirubin AST ALT Alkaline Phosphatase Creatine Kinase Total Protein Albumin Urine Color Urine Appearance Urine pH Ur Specific Black Urine Protein Urine Glucose (UA) Urine Ketones Urine Blood Urine Nitrite Urine Bilirubin Urine Urobilinogen Ur Leukocyte Esterase Urine WBC (Auto) Urine RBC (Auto) Urine Casts (Auto) U Pathogenic Cast Auto U Epithel Cells (Auto) Urine Bacteria (Auto) Urine HCG, Qual Opiates Screen Methadone Screen Barbiturate Screen Phencyclidine Screen Ur Amphetamines Screen MDMA (Ecstasy) Screen Benzodiazepines Screen Cocaine Screen U Marijuana (THC) Screen Acetone, Qual 11/19/18 11/19/18 11/19/18 05:30 06:22 06:45 WBC Corrected WBC (auto) RBC Hgb Hct MCV MCH MCHC RDW Plt Count MPV Absolute Neuts (auto) Neutrophils % Neutrophils % (Manual) Band Neutrophils % Lymphocytes % Lymphocytes % (Manual) Monocytes % Monocytes % (Manual) Eosinophils % Eosinophils % (Manual) Basophils % Basophils % (Manual) Myelocytes % (Man) Nucleated RBC % Manual Slide Review Platelet Estimate Platelet Comment Anticoagulation Therapy No Result Required. Puncture Site Right brachial ABG pH 7.31 L ABG pCO2 at Pt Temp 39.2 ABG pO2 at Pt Temp 190 H ABG HCO3 19.0 L ABG O2 Sat (Measured) 99.5 H ABG O2 Content 12.2 L ABG Base Excess -6.2 L Atul Test Positive Carboxyhemoglobin Methemoglobin O2 Delivery Device A/l Oxygen Flow Rate 40% Vent Mode No Result Required. Vent Rate No Result Required. Mechanical Rate No Result Required. PEEP 5.0 Pressure Support Vent No Result Required. Sodium 152 H Potassium 3.8 Chloride 122 H Carbon Dioxide 21 Anion Gap 8 BUN 22 H Creatinine 1.3 Est GFR (CKD-EPI)AfAm 55.79 Est GFR (CKD-EPI)NonAf 48.13 POC Glucometer 170 Random Glucose 174 H Lactic Acid Calcium 7.2 L Phosphorus 4.2 Magnesium 1.6 L Total Bilirubin 0.2 AST 26 ALT 21 Alkaline Phosphatase 62 Creatine Kinase Total Protein 4.6 L Albumin 2.4 L Urine Color Urine Appearance Urine pH Ur Specific Black Urine Protein Urine Glucose (UA) Urine Ketones Urine Blood Urine Nitrite Urine Bilirubin Urine Urobilinogen Ur Leukocyte Esterase Urine WBC (Auto) Urine RBC (Auto) Urine Casts (Auto) U Pathogenic Cast Auto U Epithel Cells (Auto) Urine Bacteria (Auto) Urine HCG, Qual Opiates Screen Methadone Screen Barbiturate Screen Phencyclidine Screen Ur Amphetamines Screen MDMA (Ecstasy) Screen Benzodiazepines Screen Cocaine Screen U Marijuana (THC) Screen Acetone, Qual 11/19/18 11/19/18 11/19/18 07:29 08:33 09:15 WBC Corrected WBC (auto) RBC Hgb Hct MCV MCH MCHC RDW Plt Count MPV Absolute Neuts (auto) Neutrophils % Neutrophils % (Manual) Band Neutrophils % Lymphocytes % Lymphocytes % (Manual) Monocytes % Monocytes % (Manual) Eosinophils % Eosinophils % (Manual) Basophils % Basophils % (Manual) Myelocytes % (Man) Nucleated RBC % Manual Slide Review Platelet Estimate Platelet Comment Anticoagulation Therapy Puncture Site ABG pH ABG pCO2 at Pt Temp ABG pO2 at Pt Temp ABG HCO3 ABG O2 Sat (Measured) ABG O2 Content ABG Base Excess Atul Test Carboxyhemoglobin Methemoglobin O2 Delivery Device Oxygen Flow Rate Vent Mode Vent Rate Mechanical Rate PEEP Pressure Support Vent Sodium 152 H Potassium 3.6 Chloride 123 H Carbon Dioxide 22 Anion Gap 7 L BUN 22 H Creatinine 1.2 Est GFR (CKD-EPI)AfAm 61.46 Est GFR (CKD-EPI)NonAf 53.02 POC Glucometer 162 165 Random Glucose 145 H Lactic Acid Calcium 7.1 L Phosphorus 3.4 Magnesium 1.8 Total Bilirubin AST ALT Alkaline Phosphatase Creatine Kinase Total Protein Albumin Urine Color Urine Appearance Urine pH Ur Specific Black Urine Protein Urine Glucose (UA) Urine Ketones Urine Blood Urine Nitrite Urine Bilirubin Urine Urobilinogen Ur Leukocyte Esterase Urine WBC (Auto) Urine RBC (Auto) Urine Casts (Auto) U Pathogenic Cast Auto U Epithel Cells (Auto) Urine Bacteria (Auto) Urine HCG, Qual Opiates Screen Methadone Screen Barbiturate Screen Phencyclidine Screen Ur Amphetamines Screen MDMA (Ecstasy) Screen Benzodiazepines Screen Cocaine Screen U Marijuana (THC) Screen Acetone, Qual 11/19/18 11/19/18 11/19/18 09:15 09:30 10:32 WBC Corrected WBC (auto) RBC Hgb Hct MCV MCH MCHC RDW Plt Count MPV Absolute Neuts (auto) Neutrophils % Neutrophils % (Manual) Band Neutrophils % Lymphocytes % Lymphocytes % (Manual) Monocytes % Monocytes % (Manual) Eosinophils % Eosinophils % (Manual) Basophils % Basophils % (Manual) Myelocytes % (Man) Nucleated RBC % Manual Slide Review Platelet Estimate Platelet Comment Anticoagulation Therapy Puncture Site ABG pH ABG pCO2 at Pt Temp ABG pO2 at Pt Temp ABG HCO3 ABG O2 Sat (Measured) ABG O2 Content ABG Base Excess Atul Test Carboxyhemoglobin Methemoglobin O2 Delivery Device Oxygen Flow Rate Vent Mode Vent Rate Mechanical Rate PEEP Pressure Support Vent Sodium Potassium Chloride Carbon Dioxide Anion Gap BUN Creatinine Est GFR (CKD-EPI)AfAm Est GFR (CKD-EPI)NonAf POC Glucometer 133 141 Random Glucose Lactic Acid 3.0 H* Calcium Phosphorus Magnesium Total Bilirubin AST ALT Alkaline Phosphatase Creatine Kinase Total Protein Albumin Urine Color Urine Appearance Urine pH Ur Specific Black Urine Protein Urine Glucose (UA) Urine Ketones Urine Blood Urine Nitrite Urine Bilirubin Urine Urobilinogen Ur Leukocyte Esterase Urine WBC (Auto) Urine RBC (Auto) Urine Casts (Auto) U Pathogenic Cast Auto U Epithel Cells (Auto) Urine Bacteria (Auto) Urine HCG, Qual Opiates Screen Methadone Screen Barbiturate Screen Phencyclidine Screen Ur Amphetamines Screen MDMA (Ecstasy) Screen Benzodiazepines Screen Cocaine Screen U Marijuana (THC) Screen Acetone, Qual 11/19/18 11:34 WBC Corrected WBC (auto) RBC Hgb Hct MCV MCH MCHC RDW Plt Count MPV Absolute Neuts (auto) Neutrophils % Neutrophils % (Manual) Band Neutrophils % Lymphocytes % Lymphocytes % (Manual) Monocytes % Monocytes % (Manual) Eosinophils % Eosinophils % (Manual) Basophils % Basophils % (Manual) Myelocytes % (Man) Nucleated RBC % Manual Slide Review Platelet Estimate Platelet Comment Anticoagulation Therapy Puncture Site ABG pH ABG pCO2 at Pt Temp ABG pO2 at Pt Temp ABG HCO3 ABG O2 Sat (Measured) ABG O2 Content ABG Base Excess Atul Test Carboxyhemoglobin Methemoglobin O2 Delivery Device Oxygen Flow Rate Vent Mode Vent Rate Mechanical Rate PEEP Pressure Support Vent Sodium Potassium Chloride Carbon Dioxide Anion Gap BUN Creatinine Est GFR (CKD-EPI)AfAm Est GFR (CKD-EPI)NonAf POC Glucometer 134 Random Glucose Lactic Acid Calcium Phosphorus Magnesium Total Bilirubin AST ALT Alkaline Phosphatase Creatine Kinase Total Protein Albumin Urine Color Urine Appearance Urine pH Ur Specific Black Urine Protein Urine Glucose (UA) Urine Ketones Urine Blood Urine Nitrite Urine Bilirubin Urine Urobilinogen Ur Leukocyte Esterase Urine WBC (Auto) Urine RBC (Auto) Urine Casts (Auto) U Pathogenic Cast Auto U Epithel Cells (Auto) Urine Bacteria (Auto) Urine HCG, Qual Opiates Screen Methadone Screen Barbiturate Screen Phencyclidine Screen Ur Amphetamines Screen MDMA (Ecstasy) Screen Benzodiazepines Screen Cocaine Screen U Marijuana (THC) Screen Acetone, Qual Active Medications Generic Name Dose Route Start Last Admin Trade Name Freq PRN Reason Stop Dose Admin Albuterol Sulfate 1 amp 11/18/18 15:26 Ventolin 0.083% Nebulizer Soln - NEB Q4H PRN SHORTNESS OF BREATH Chlorhexidine Gluconate 1 applic 11/18/18 22:00 11/18/18 21:17 Hibiclens For Decolonization - TP 1 applic HS [facility] Administration Heparin Sodium (Porcine) 5,000 unit 11/18/18 22:00 11/19/18 06:34 Heparin - SQ 5,000 unit TID [facility] Administration Vancomycin HCl 1,000 mg/ 250 mls @ 166.667 mls/hr 11/18/18 15:45 Dextrose IVPB Q12H [facility] Protocol Midazolam HCl 100 mg/ Sodium 100 mls @ 1 mls/hr 11/18/18 16:45 11/19/18 02:00 Chloride IVPB 6 mg/hr TITR [facility] 6 mls/hr Titration Protocol 1 MG/HR Fentanyl 500 mcg/ Dextrose 100 mls @ 5 mls/hr 11/18/18 17:30 11/19/18 03:13 IVPB 100 mcg/hr TITR [facility] 20 mls/hr Titration Protocol 25 MCG/HR Insulin Human Regular 100 100 mls @ 6.12 mls/hr 11/18/18 18:21 11/19/18 01:00 units/ Sodium Chloride IVPB 0.01 units/kg/hr TITR [facility] 1 mls/hr Titration Protocol 0.1 UNITS/KG/HR Piperacillin Sod/Tazobactam 50 mls @ 100 mls/hr 11/18/18 23:00 11/19/18 10:07 Sod 3.375 gm/ Dextrose IVPB 100 mls/hr Q8H-IV [facility] Administration Protocol Potassium Chloride/Dextrose/Sod Cl 20 meq in 1,000 mls @ 200 mls/hr 11/19/18 10:52 D5-1/2ns+20 Meq Kcl - IV ASDIR [facility] Mupirocin 1 applic 11/18/18 22:00 11/18/18 21:20 Bactroban Ointment (For Decolonization) - NS 11/23/18 21:59 1 applic BID [facility] Administration Pantoprazole Sodium 40 mg 11/19/18 10:00 11/19/18 10:08 Protonix Iv IVPUSH 40 mg DAILY [facility] Administration Vancomycin HCl 1,000 mg 11/18/18 15:45 11/19/18 03:12 Vancomycin (Pre-Docked) IVPB 11/19/18 15:46 1,000 mg Q12H [facility] Administration ASSESSMENT/PLAN: Patient is a 48 year old female with past medical history of HTN, CVA (left sided hemiparesis), HLD, IDDM, DKA, Dysphagia, Gastroparesis, esophageal stricture (EGD 02/14), presented to [place] ED after being found unresponsive by the neighbor. Patient was found to be in DKA. #Neurology -Altered mental status s/p intubated, sedated -For likely extubation today, Versed drip and Fentanyl drip held #Cardiovascular -Hypovolemic shock, improved with IVF boluses -Hx of HLD -Hold Anti-HTN, Continue to monitor for hypotension -continue tele monitoring #Pulmonology -Acute respiratory failure, improving -ABG today 7.31/39.2/190/19 -Vent settings 14/400/40%/5 -ABG and CXR daily #GI -Hx of Dysphagia, Gastroparesis, esophageal stricture (EGD 02/14) -NPO -Protonix for GI prophylaxis #Renal -Severe metabolic acidosis, 2/2 DKA, Lactic acidosis, improving -GIANCARLO, likely pre-renal, resolved -HypoK, KCl on IVF -HyperNa, IVF switched to D5W-1/2NS -Continue Aggressive IV fluid hydration -On insulin drip -Monitor UO -will continue to monitor renal function #Endo -Diabetic Ketoacidosis, anion gap metabolic acidosis -Hx of IDDM, known history of noncompliance -Anion gap closed, still intubated -Continue insulin drip gtt at 1 unit/hr -Likely for extubation today, sedation off -Once patient is able to tolerate PO, will bridge to SQ insulin -while on insulin drip, IVF D5-1/2NS to maintain blood glucose between 140-180 -20 MEq KCl added on each liter of IVF. -BGM q1h -BMP q4h -IV D5-1/2NS @200cc/hr -Endocrinology (Dr. Gama) consulted. #ID -Leukocytosis now down to 10.6, likely reactive -Blood cultures, urine cultures pending -No fevers overnight -CXR - no acute lung pathology -Lactic acid 2.4 went up to 3, will trend -Will start empiric Vanc/Zosyn -ID (Dr. Pimentel) consulted. #Heme -Leukocytosis, improving, likely reactive -Blood cultures, urine cultures ordered #FEN -IV D5-1/2NS @200cc/hr -HypoK, repleted -Routine bmp monitoring -NPO. Will resume diabetic diet once extubated. #Prophylaxis -DVT: Heparin 5000unit sq tid -GI: Protonix 40mg daily #Disposition -full code -ICU monitoring Visit type - Emergency Visit Emergency Visit: Yes ED Registration Date: 11/18/18 Care time: The patient presented to the Emergency Department on the above date and was hospitalized for further evaluation of their emergent condition. - New Patient This patient is new to me today: No - Critical Care Critical Care patient: Yes Total Critical Care Time (in minutes): 37 Critical Care Statement: The care of this patient involved high complexity decision making to prevent further life threatening deterioration of the patient 's condition and/or to evaluate & treat vital organ system(s) failure or risk of failure.
--- NOTE | 2018-11-19 13:06 | CONSULT ---
Consult Consult Specialty:: Endocrinology Referred by:: Dr Mendieta Reason for Consultation:: DKA - History of Present Illness Chief Complaint: AMS History of Present Illness: This is a 48 year old female with h/o HTN, CVA (left sided hemiparesis), HLD, T1DM with numerous admissions for DKA, Dysphagia, Gastroparesis, esophageal stricture (EGD 02/14), presented to [place] ED after being found unresponsive by the neighbor. Patient was noted to be hypergylcemic at 1600 with elevated anion gap, hyperkalemia and positive acetones in the urine. Peaked T waves were also noted on EKG. Patient was started on Insulin drip and IV fluid boluses were given. Sodium bicarb and Calcium gluconate given. Patient was then transferred to [facility] ICU. Upon arrival patient was noted to be lethargic, moaning, on nonrebreather mask, and unresponsive to voice but withdraws to pain. ABG showed high anion gap metabolic acidosis with pH of 6.85 and patient was subsequently intubated. Central line placed as well. As per EMS, the patient had no family at bedside. Contacted fianceeBoogie, to get further history. He stated patient was not feeling well yesterday but did not have any fever, vomiting, cough, colds, chest pain, SOB, abdominal pain or diarrhea. This morning, when he left home at around 6am patient was still noted to be up and about around the house. A few hours after, patient called him and told him she was not feeling well. He asked the neighbor to check on the patient, who was noted to be unresponsive, and subsequently called the ambulance and patient was brought to [place] ED. Pt currently intubated in the ICU. Opens eyes to stimuli. 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: CVA (right MCA), Migraine Gastrointestinal: Yes: Other (Gastroparesis) ...LMP: 04/14/13 Musculoskeletal: Yes: Chronic low back pain Endocrine: Yes: Diabetes Mellitus Additional Medical History: dka in the past - Past Surgical History Past Surgical History: Yes: Cholecystectomy - Alcohol/Substance Use Hx Alcohol Use: No History of Substance Use: reports: None - Smoking History Smoking history: Unknown if ever smoked Have you smoked in the past 12 months: No Aproximately how many cigarettes per day: 8 - Social History ADL: Independent History of Recent Travel: No Home Medications - Allergies Allergies/Adverse Reactions: Allergies Allergy/AdvReac Type Severity Reaction Status Date / Time No Known Allergies Allergy Verified 06/16/18 22:40 - Home Medications Home Medications: Ambulatory Orders Insulin Detemir [Levemir Flextouch] 25 unit SQ DAILY #3 insuln.pen 06/20/18 Amoxicillin/Potassium Clav [Augmentin 875-125 Tablet] 1 each PO BID #14 tablet 08/13/18 Aspirin 81 mg PO DAILY #30 tab.chew 08/13/18 Aspirin [ASA -] 81 mg PO DAILY tab.chew 08/13/18 Atorvastatin Ca [Lipitor] 40 mg PO HS #30 tablet 08/13/18 Family Disease History - Family Disease History Family Disease History: Heart Disease: Father (cad) Review of Systems Unable to obtain ROS, reason: Intubated Physical Exam Vital Signs: Vital Signs Temperature 98.6 F 11/19/18 10:00 Pulse Rate 93 H 11/19/18 10:00 Respiratory Rate 16 11/19/18 12:07 Blood Pressure 128/65 11/19/18 10:00 O2 Sat by Pulse Oximetry (%) 98 11/19/18 12:07 Constitutional: Yes: No Distress Eyes: Yes: Conjunctiva Clear HENT: Yes: Atraumatic, Normocephalic Neck: Yes: Supple, Trachea Midline Cardiovascular: Yes: Regular Rate and Rhythm Respiratory: Yes: Regular, CTA Bilaterally Gastrointestinal: Yes: Normal Bowel Sounds, Soft Edema: No Neurological: Yes: Other (Intubated, opens eyes to stimuli) Labs: CBC, BMP 11/19/18 05:30 11/19/18 09:15 Assessment/Plan AP: DKA resolved T1DM Electrolyte Imbalance ?Sepsis Continue Insulin drip to maintain FS 120 to 180 IV hydration as necessary electrolyte replacement as necessary Will transition to Subcutaneous Insulin once pt is more stable. Will f/u
[2018-11-19] MEDS: MUPIROCIN 2% TOPICAL OINTMENT FOR DECOLONIZATION NS SCH ×2 (13:13→22:08)
[2018-11-19] MEDS ORDERED: ACETAMINOPHEN 325 MG TABLET (FP) PO PRN (13:45)
[2018-11-19] MEDS ORDERED: ACETAMINOPHEN 1000 MG/100 ML VIAL (NON FORMULARY) IVPB ONE ×2 (13:51→21:48)
--- NOTE | 2018-11-19 14:43 | CON.ID ---
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: CVA (right MCA), Migraine Gastrointestinal: Yes: Other (Gastroparesis) ...LMP: 04/14/13 Musculoskeletal: Yes: Chronic low back pain Endocrine: Yes: Diabetes Mellitus Additional Medical History: dka in the past - Past Surgical History Past Surgical History: Yes: Cholecystectomy - Alcohol/Substance Use Hx Alcohol Use: No History of Substance Use: reports: None - Smoking History Smoking history: Unknown if ever smoked Have you smoked in the past 12 months: No Aproximately how many cigarettes per day: 8 - Social History ADL: Independent History of Recent Travel: No Home Medications - Allergies Allergies/Adverse Reactions: Allergies Allergy/AdvReac Type Severity Reaction Status Date / Time No Known Allergies Allergy Verified 06/16/18 22:40 - Home Medications Home Medications: Ambulatory Orders Insulin Detemir [Levemir Flextouch] 25 unit SQ DAILY #3 insuln.pen 06/20/18 Amoxicillin/Potassium Clav [Augmentin 875-125 Tablet] 1 each PO BID #14 tablet 08/13/18 Aspirin 81 mg PO DAILY #30 tab.chew 08/13/18 Aspirin [ASA -] 81 mg PO DAILY tab.chew 08/13/18 Atorvastatin Ca [Lipitor] 40 mg PO HS #30 tablet 08/13/18 Family Disease History - Family Disease History Family Disease History: Heart Disease: Father (cad) Physical Exam Vital Signs: Vital Signs Temperature 98.6 F 11/19/18 10:00 Pulse Rate 104 H 11/19/18 13:58 Respiratory Rate 16 11/19/18 12:07 Blood Pressure 128/65 11/19/18 10:00 O2 Sat by Pulse Oximetry (%) 100 11/19/18 13:58 Labs: CBC, BMP 11/19/18 05:30 11/19/18 09:15
[2018-11-19] MEDS: VANCOMYCIN 1,000 MG in DEXTROSE 5%-WATER - 250 ML IVPB SCH (15:35)
[2018-11-19] MEDS: MIDAZOLAM 100 MG in SODIUM CHLORIDE 100 ML IVPB SCH (17:05)
[2018-11-19 17:33] LABS: CALCIUM 7.1 mg/dL (8.5-10.1); MAGNESIUM 1.7 mg/dL (1.8-2.4); PHOSPHOROUS 1.9 mg/dL (2.5-4.9); POTASSIUM 3.4 mmol/L (3.5-5.1)
[2018-11-19] MEDS: FENTANYL INJECTION 500 MCG in DEXTROSE 5%-WATER - 90 ML IVPB SCH (18:07)
[2018-11-19] MEDS: INSULIN REGULAR 100 UNITS in SODIUM CHLORIDE 99 ML IVPB SCH (18:08)
--- NOTE | 2018-11-19 18:57 | PN ---
Progress Note, Physician - Current Medication List Current Medications: Active Medications Acetaminophen (Tylenol -) 650 mg PO Q6H PRN PRN Reason: Fever Or Pain Albuterol Sulfate (Ventolin 0.083% Nebulizer Soln -) 1 amp NEB Q4H PRN PRN Reason: SHORTNESS OF BREATH Chlorhexidine Gluconate (Hibiclens For Decolonization -) 1 applic TP HS [facility] Last Admin: 11/18/18 21:17 Dose: 1 applic Heparin Sodium (Porcine) (Heparin -) 5,000 unit SQ TID [facility] Last Admin: 11/19/18 13:27 Dose: 5,000 unit Midazolam HCl 100 mg/ Sodium (Chloride) 100 mls @ 1 mls/hr IVPB TITR [facility]; Protocol Last Admin: 11/19/18 17:05 Dose: Not Given Fentanyl 500 mcg/ Dextrose 100 mls @ 5 mls/hr IVPB TITR [facility]; Protocol Last Admin: 11/19/18 18:07 Dose: Not Given Insulin Human Regular 100 (units/ Sodium Chloride) 100 mls @ 6.12 mls/hr IVPB TITR [facility]; Protocol Last Admin: 11/19/18 18:08 Dose: 0.01 units/kg/hr, 1 mls/hr Piperacillin Sod/Tazobactam (Sod 3.375 gm/ Dextrose) 50 mls @ 100 mls/hr IVPB Q8H-IV [facility]; Protocol Last Admin: 11/19/18 18:08 Dose: 100 mls/hr Potassium Chloride/Dextrose/Sod Cl (D5-1/2ns+20 Meq Kcl -) 20 meq in 1,000 mls @ 200 mls/hr IV ASDIR [facility] Mupirocin (Bactroban Ointment (For Decolonization) -) 1 applic NS BID [facility] Stop: 11/23/18 21:59 Last Admin: 11/19/18 13:13 Dose: 1 applic Pantoprazole Sodium (Protonix Iv) 40 mg IVPUSH DAILY [facility] Last Admin: 11/19/18 10:08 Dose: 40 mg - Objective Vital Signs: Vital Signs Temperature 99.9 F H 11/19/18 18:00 Pulse Rate 99 H 11/19/18 18:00 Respiratory Rate 27 H 11/19/18 18:00 Blood Pressure 133/78 11/19/18 18:00 O2 Sat by Pulse Oximetry (%) 100 11/19/18 13:58 Constitutional: Yes: Well Nourished, Other (patient sedated on midazolam and fentanyl) Eyes: Yes: WNL, Conjunctiva Clear HENT: Yes: WNL, Atraumatic, Normocephalic Neck: Yes: WNL, Supple, Trachea Midline Cardiovascular: Yes: WNL, Regular Rate and Rhythm Respiratory: Yes: WNL, Regular, Diminished (at bases), Other (orally intubated) Gastrointestinal: Yes: WNL, Normal Bowel Sounds ...Rectal Exam: Yes: Deferred Genitourinary: Yes: Lott Present Extremities: Yes: WNL Edema: No Peripheral Pulses WNL: Yes Integumentary: Yes: WNL Neurological: Yes: Other (patient sedated) Labs: CBC, BMP 11/19/18 05:30 11/19/18 16:00 INR, PTT INR 0.94 (0.83-1.09) 11/19/18 05:30 - ....Imaging Chest X-ray: Image Reviewed (no effusion or ilfiltrates, ETT 4cm above garfield, R IJ noted in SVC) Problem List - Problems (1) GIANCARLO (acute kidney injury) Code(s): N17.9 - ACUTE KIDNEY FAILURE, UNSPECIFIED (2) Dehydration, mild Code(s): E86.0 - DEHYDRATION (3) Hypokalemia Code(s): E87.6 - HYPOKALEMIA (4) Hyperglycemia, unspecified Code(s): R73.9 - HYPERGLYCEMIA, UNSPECIFIED (5) Lactic acid acidosis Code(s): E87.2 - ACIDOSIS Impression/Plan Impression/Plan: ASSESSMENT/PLAN: Patient is a 48 year old female with past medical history of HTN, CVA (left sided hemiparesis), HLD, IDDM, DKA, Dysphagia, Gastroparesis, esophageal stricture (EGD 02/14), presented to [place] ED after being found unresponsive by the neighbor. Patient was found to be in DKA. Neurology -patient sedated on fetanyl and midazolm infusion as per ICU team Cardiovascular Hypovolemic shock, improved with IVF boluses Continue to monitor for hypotension hold home antihypertensives ICU monitoring Pulmonology Acute respiratory failure, improving ABG today 7.31/39.2/190/19 Vent settings 14/400/40%/5 as per ICU team Possible extubation today, CPAP trial ABG and CXR daily GI NPO Protonix for GI prophylaxis Renal -Severe metabolic acidosis, 2/2 DKA, Lactic acidosis, improving GIANCARLO resolving HypoK, KCl on IVF HyperNa, IVF switched to D5W-1/2NS Continue Aggressive IV fluid hydration On insulin drip as per ICU team Monitor UO will continue to monitor renal function Endo Diabetic Ketoacidosis, metabolic acidosis -Hx of IDDM, known history of noncompliance -Continue insulin drip gtt at 1 unit/hr -BGM q1h , BMP q4Has per ICU team -IV D5-1/2NS @200cc/hr -Endocrinology (Dr. Gama) consulted. ID Leukocytosis downtrending -Blood cultures, urine cultures pending -dialy CXR -continue start empiric Vanc/Zosyn -ID (Dr. Pimentel) consulted. #Heme -Leukocytosis, improving, likely reactive -Blood cultures, urine cultures pending #FEN -IV D5-1/2NS @200cc/hr -HypoK, repleted -Routine bmp monitoring as per ICU team -NPO. Will resume diabetic diet once extubated. #Prophylaxis -DVT: Heparin 5000unit sq tid -GI: Protonix 40mg daily #Disposition -full code -ICU monitoring Visit type - Emergency Visit Emergency Visit: Yes ED Registration Date: 11/18/18 Care time: The patient presented to the Emergency Department on the above date and was hospitalized for further evaluation of their emergent condition. - New Patient This patient is new to me today: Yes Date on this admission: 11/19/18 - Critical Care Critical Care patient: Yes Total Critical Care Time (in minutes): 30 Critical Care Statement: The care of this patient involved high complexity decision making to prevent further life threatening deterioration of the patient 's condition and/or to evaluate & treat vital organ system(s) failure or risk of failure. - Discharge Referral Referred to [facility] Med P.C.: No
[2018-11-19 22:03] LABS: CREATININE 0.9 mg/dL (0.55-1.3); MAGNESIUM 1.3 mg/dL (1.8-2.4); PHOSPHOROUS 1.3 mg/dL (2.5-4.9)
[2018-11-19 22:06] LABS: CALCIUM 5.9 mg/dL (8.5-10.1)
[2018-11-19] MEDS: CHLORHEXIDINE GLUCONATE 4% CLEANSER FOR DECOLONIZATION TP SCH (22:08)
[2018-11-19] MEDS: D5-1/2NS+20 MEQ KCL - 20 MEQ/1,000 ML INFUS.BAG IV SCH (22:09)
[2018-11-20 01:13] LABS: CALCIUM 7.2 mg/dL (8.5-10.1); CREATININE 0.9 mg/dL (0.55-1.3); MAGNESIUM 1.5 mg/dL (1.8-2.4); PHOSPHOROUS 1.4 mg/dL (2.5-4.9); POTASSIUM 3.1 mmol/L (3.5-5.1)
[2018-11-20] MEDS ORDERED: PIPERACILLIN/TAZOBACTAM 3.375 GM VIAL IVPB ONE ×2 (01:41→09:42)
[2018-11-20] MEDS ORDERED: DEXTROSE 5%-WATER - 50 ML IVPB ONE ×2 (01:42→09:42)
[2018-11-20] MEDS: D5-1/2NS+20 MEQ KCL - 20 MEQ/1,000 ML INFUS.BAG IV SCH (01:47)
[2018-11-20] MEDS: PIPERACILLIN/TAZOB 3.375 GM 3.375 GM in DEXTROSE 5%-WATER - 50 ML IVPB SCH ×2 (01:48→09:46)
[2018-11-20 04:23] LABS: CALCIUM 7.5 mg/dL (8.5-10.1); CREATININE 0.8 mg/dL (0.55-1.3); MAGNESIUM 1.5 mg/dL (1.8-2.4); PHOSPHOROUS 1.2 mg/dL (2.5-4.9); POTASSIUM 3.2 mmol/L (3.5-5.1)
[2018-11-20] MEDS ORDERED: ACETAMINOPHEN 1000 MG/100 ML VIAL (NON FORMULARY) IVPB ONE ×3 (04:26→20:12)
[2018-11-20] MEDS: HEPARIN NA (PORCINE) 5,000 UNITS/ML 1ML VIAL SQ SCH ×3 (05:37→22:23)
[2018-11-20 06:20] LABS: BASO % 0.1 % (0-2.0); EOS % 0.4 % (0-4.5); HEMATOCRIT 25.2 % (32.4-45.2); HEMOGLOBIN 8.5 GM/dL (10.7-15.3); LYMPH % 14.5 % (8-40); MCH 27.8 pg (25.7-33.7); MCHC 33.7 g/dl (32.0-36.0); MEAN CELL VOLUME 82.4 fl (80-96); MEAN PLT VOLUME 7.9 fl (7.5-11.1); MONO % 2.3 % (3.8-10.2); NEUT % 82.7 % (42.8-82.8); PLATELET COUNT 221 K/MM3 (134-434); RBC 3.06 M/mm3 (3.60-5.2); RDW 18.5 % (11.6-15.6); WHITE BLOOD COUNT 8.1 K/mm3 (4.0-10.0)
[2018-11-20 06:57] LABS: CALCIUM 7.2 mg/dL (8.5-10.1); CREATININE 1.1 mg/dL (0.55-1.3); MAGNESIUM 1.6 mg/dL (1.8-2.4); PHOSPHOROUS 1.4 mg/dL (2.5-4.9); POTASSIUM 3.3 mmol/L (3.5-5.1)
[2018-11-20] MEDS ORDERED: MAGNESIUM SULF 50% (8.12 MEQ/2 ML-1 GM VIAL) IVPB ONE (08:45)
[2018-11-20] MEDS ORDERED: KCL 10 MEQ IVPB 10 MEQ/100 ML INFUS.BAG IVPB SCH (08:45)
[2018-11-20] MEDS ORDERED: D5-1/2NS+20 MEQ KCL - 20 MEQ/1,000 ML INFUS.BAG IV SCH (08:48)
--- NOTE | 2018-11-20 08:59 | PN ---
Progress Note (short form) - Note Progress Note: Awake, alert Extubated Vital Signs Period Temp Pulse Resp BP Sys/Rapp Pulse Ox Last 24 Hr 98.6 F-101.8 F 88-105 15-27 109-134/53-93 98-100 PE: Awake, confused Neck: Supple, No JVD Lungs: CTA CVS: S1S2 Abd: Benign Ext: No edema CMP Sodium 145 mmol/L (136-145) 11/20/18 05:30 Potassium 3.3 mmol/L (3.5-5.1) L 11/20/18 05:30 Chloride 114 mmol/L (98-107) H 11/20/18 05:30 Carbon Dioxide 18 mmol/L (21-32) L 11/20/18 05:30 Anion Gap 12 MMOL/L (8-16) 11/20/18 05:30 BUN 7 mg/dL (7-18) 11/20/18 05:30 Creatinine 1.1 mg/dL (0.55-1.3) 11/20/18 05:30 Est GFR (CKD-EPI)AfAm 68.27 11/20/18 05:30 Est GFR (CKD-EPI)NonAf 58.91 11/20/18 05:30 POC Glucometer 161 UNITS (80-120) 11/20/18 08:29 Random Glucose 266 mg/dL (74-106) H 11/20/18 05:30 Lactic Acid 2.6 mmol/L (0.4-2.0) H* 11/19/18 16:00 Calcium 7.2 mg/dL (8.5-10.1) L 11/20/18 05:30 Phosphorus 1.4 mg/dL (2.5-4.9) L 11/20/18 05:30 Magnesium 1.6 mg/dL (1.8-2.4) L 11/20/18 05:30 Total Bilirubin 0.2 mg/dL (0.2-1) 11/19/18 05:30 AST 26 U/L (15-37) 11/19/18 05:30 ALT 21 U/L (13-61) 11/19/18 05:30 Alkaline Phosphatase 62 U/L (45-117) 11/19/18 05:30 Creatine Kinase 55 U/L (26-192) 11/18/18 13:24 Total Protein 4.6 g/dl (6.4-8.2) L 11/19/18 05:30 Albumin 2.4 g/dl (3.4-5.0) L 11/19/18 05:30 Current Medications Generic Name Dose Route Start Last Admin Trade Name Freq PRN Reason Stop Dose Admin Acetaminophen 650 mg 11/19/18 13:45 Tylenol - PO Q6H PRN Fever Or Pain Albuterol Sulfate 1 amp 11/18/18 15:26 Ventolin 0.083% Nebulizer Soln - NEB Q4H PRN SHORTNESS OF BREATH Chlorhexidine Gluconate 1 applic 11/18/18 22:00 11/19/18 22:08 Hibiclens For Decolonization - TP 1 applic HS [facility] Administration Heparin Sodium (Porcine) 5,000 unit 11/18/18 22:00 11/20/18 05:37 Heparin - SQ 5,000 unit TID [facility] Administration Insulin Human Regular 100 100 mls @ 6.12 mls/hr 11/18/18 18:21 11/20/18 04:47 units/ Sodium Chloride IVPB 0.01 units/kg/hr TITR [facility] 1 mls/hr Titration Protocol 0.1 UNITS/KG/HR Piperacillin Sod/Tazobactam 50 mls @ 100 mls/hr 11/18/18 23:00 11/20/18 01:48 Sod 3.375 gm/ Dextrose IVPB 100 mls/hr Q8H-IV [facility] Administration Protocol Potassium Chloride 10 meq in 100 mls @ 100 mls/hr 11/20/18 08:45 Potassium Chloride 10 Meq Premix Ivpb - IVPB 11/20/18 09:44 Q60M [facility] Potassium Chloride/Dextrose/Sod Cl 20 meq in 1,000 mls @ 75 mls/hr 11/20/18 08 :48 D5-1/2ns+20 Meq Kcl - IV ASDIR [facility] Mupirocin 1 applic 11/18/18 22:00 11/19/18 22:08 Bactroban Ointment (For Decolonization) - NS 11/23/18 21:59 1 applic BID [facility] Administration Pantoprazole Sodium 40 mg 11/19/18 10:00 11/19/18 10:08 Protonix Iv IVPUSH 40 mg DAILY [facility] Administration AP: DKA resolved T1DM Electrolyte Imbalance ?Sepsis Pt off Insulin drip Start Levemir 10 units Stat and daily NOvolog ss Q 6hrs Conitnue D5 to maintain FS 120 to 180. Pt need long acting Insulin to prevent recurrance of DKA. Drip rate maybe adjusted as necessary but should not be stopped until pt is able tolerate oral feeding. IV hydration as necessary electrolyte replacement as necessary Will f/u
[2018-11-20 09:32] LABS: CALCIUM 7.7 mg/dL (8.5-10.1); MAGNESIUM 1.3 mg/dL (1.8-2.4); PHOSPHOROUS 1.5 mg/dL (2.5-4.9); POTASSIUM 3.1 mmol/L (3.5-5.1)
[2018-11-20] MEDS: PANTOPRAZOLE SODIUM 40 MG VIAL IVPUSH SCH (09:45)
[2018-11-20] MEDS: MUPIROCIN 2% TOPICAL OINTMENT FOR DECOLONIZATION NS SCH ×2 (09:47→22:24)
[2018-11-20] MEDS: METOCLOPRAMIDE HCL INJECTION 10 MG/2 ML VIAL IVPUSH PRN ×2 (10:57→17:37)
[2018-11-20] MEDS ORDERED: INSULIN (LEVEMIR) 100 UNITS/ML UNITS SQ ONE ×2 (11:31→19:18)
--- NOTE | 2018-11-20 11:51 | PN ---
Progress Note, Physician - Current Medication List Current Medications: Active Medications Acetaminophen (Tylenol -) 650 mg PO Q6H PRN PRN Reason: Fever Or Pain Albuterol Sulfate (Ventolin 0.083% Nebulizer Soln -) 1 amp NEB Q4H PRN PRN Reason: SHORTNESS OF BREATH Chlorhexidine Gluconate (Hibiclens For Decolonization -) 1 applic TP HS [facility] Last Admin: 11/19/18 22:08 Dose: 1 applic Heparin Sodium (Porcine) (Heparin -) 5,000 unit SQ TID [facility] Last Admin: 11/20/18 05:37 Dose: 5,000 unit Piperacillin Sod/Tazobactam (Sod 3.375 gm/ Dextrose) 50 mls @ 100 mls/hr IVPB Q8H-IV [facility]; Protocol Last Admin: 11/20/18 09:46 Dose: 100 mls/hr Potassium Chloride/Dextrose/Sod Cl (D5-1/2ns+20 Meq Kcl -) 20 meq in 1,000 mls @ 75 mls/hr IV ASDIR [facility] [place] Last Admin: 11/20/18 09:35 Dose: 75 mls/hr Metoclopramide HCl (Reglan Injection -) 10 mg IVPUSH Q6H PRN PRN Reason: NAUSEA AND/OR VOMITING Last Admin: 11/20/18 10:57 Dose: 10 mg Mupirocin (Bactroban Ointment (For Decolonization) -) 1 applic NS BID [facility] [place] Stop: 11/23/18 21:59 Last Admin: 11/20/18 09:47 Dose: 1 applic Pantoprazole Sodium (Protonix Iv) 40 mg IVPUSH DAILY [facility] [place] Last Admin: 11/20/18 09:45 Dose: 40 mg - Objective Vital Signs: Vital Signs Temperature 100.4 F H 11/20/18 06:00 Pulse Rate 96 H 11/20/18 06:00 Respiratory Rate 21 H 11/20/18 06:00 Blood Pressure 113/73 11/20/18 06:00 O2 Sat by Pulse Oximetry (%) 98 11/19/18 21:00 Labs: CBC, BMP 11/20/18 05:30 11/20/18 08:30 INR, PTT INR 0.94 (0.83-1.09) 11/19/18 05:30
--- NOTE | 2018-11-20 11:55 | PN ---
Teaching Attending Note Name of Resident: Lashaun Lugo ATTENDING PHYSICIAN STATEMENT I saw and evaluated the patient. I reviewed the resident's note and discussed the case with the resident. I agree with the resident's findings and plan as documented. SUBJECTIVE: Patient seen and examined in the ICU. Remains extubated. Uncomfortable due to abdominal discomfort / pain. Refusing PO intake. IV Insulin drip infusing. Intake & Output 11/17/18 11/18/18 11/19/18 11/20/18 23:59 23:59 23:59 23:59 Intake Total 4705 5160 2269 Output Total 1590 1200 2000 Balance 3115 3960 269 Weight 56 lb 6.4 oz 139 lb 137 lb Last Vital Signs Temp Pulse Resp BP Pulse Ox 100.4 F H 96 H 21 H 113/73 98 11/20/18 06:00 11/20/18 06:00 11/20/18 06:00 11/20/18 06:00 11/19/18 21:00 Active Medications Acetaminophen (Tylenol -) 650 mg PO Q6H PRN PRN Reason: Fever Or Pain Albuterol Sulfate (Ventolin 0.083% Nebulizer Soln -) 1 amp NEB Q4H PRN PRN Reason: SHORTNESS OF BREATH Chlorhexidine Gluconate (Hibiclens For Decolonization -) 1 applic TP HS [facility] Last Admin: 11/19/18 22:08 Dose: 1 applic Heparin Sodium (Porcine) (Heparin -) 5,000 unit SQ TID [facility] Last Admin: 11/20/18 05:37 Dose: 5,000 unit Piperacillin Sod/Tazobactam (Sod 3.375 gm/ Dextrose) 50 mls @ 100 mls/hr IVPB Q8H-IV [facility]; Protocol Last Admin: 11/20/18 09:46 Dose: 100 mls/hr Potassium Chloride/Dextrose/Sod Cl (D5-1/2ns+20 Meq Kcl -) 20 meq in 1,000 mls @ 75 mls/hr IV ASDIR [facility] Last Admin: 11/20/18 09:35 Dose: 75 mls/hr Metoclopramide HCl (Reglan Injection -) 10 mg IVPUSH Q6H PRN PRN Reason: NAUSEA AND/OR VOMITING Last Admin: 11/20/18 10:57 Dose: 10 mg Mupirocin (Bactroban Ointment (For Decolonization) -) 1 applic NS BID [facility] Stop: 11/23/18 21:59 Last Admin: 11/20/18 09:47 Dose: 1 applic Pantoprazole Sodium (Protonix Iv) 40 mg IVPUSH DAILY [facility] Last Admin: 11/20/18 09:45 Dose: 40 mg Gen: Extubated, uncomfortable due to abdominal pain Heart: tachycardic, regular Lung: decreased breath sounds at the bases Abd: soft, (+) non-specific diffuse tenderness, (-) guarding or rigidity Ext: no edema ASSESSMENT AND PLAN: Diabetic Ketoacidosis Severe Metabolic Acidosis Acute Respiratory Failure Hypovolemic Shock Acute Kidney Injury r/o Sepsis HTN Hyperlipidemia Noncompliance Laboratory Results - last 24 hr 11/19/18 11/19/18 11/19/18 05:30 12:00 13:31 WBC RBC Hgb Hct MCV MCH MCHC RDW Plt Count MPV Absolute Neuts (auto) Neutrophils % Lymphocytes % Monocytes % Eosinophils % Basophils % Nucleated RBC % PT with INR 11.10 INR 0.94 Sodium Potassium Chloride Carbon Dioxide Anion Gap BUN Creatinine Est GFR (CKD-EPI)AfAm Est GFR (CKD-EPI)NonAf POC Glucometer 133 Random Glucose Lactic Acid 2.6 H* Calcium Phosphorus Magnesium 11/19/18 11/19/18 11/19/18 15:55 16:00 16:00 WBC RBC Hgb Hct MCV MCH MCHC RDW Plt Count MPV Absolute Neuts (auto) Neutrophils % Lymphocytes % Monocytes % Eosinophils % Basophils % Nucleated RBC % PT with INR INR Sodium 151 H Potassium 3.4 L Chloride 123 H Carbon Dioxide 20 L Anion Gap 8 BUN 17 Creatinine 1.0 Est GFR (CKD-EPI)AfAm 76.61 Est GFR (CKD-EPI)NonAf 66.10 POC Glucometer 103 Random Glucose 102 Lactic Acid 2.6 H* Calcium 7.1 L Phosphorus 1.9 L Magnesium 1.7 L 11/19/18 11/19/18 11/19/18 17:42 19:47 20:40 WBC RBC Hgb Hct MCV MCH MCHC RDW Plt Count MPV Absolute Neuts (auto) Neutrophils % Lymphocytes % Monocytes % Eosinophils % Basophils % Nucleated RBC % PT with INR INR Sodium 153 H Potassium 3.0 L Chloride 127 H Carbon Dioxide 18 L Anion Gap 9 BUN 12 Creatinine 0.9 Est GFR (CKD-EPI)AfAm 87.02 Est GFR (CKD-EPI)NonAf 75.08 POC Glucometer 107 98 Random Glucose 107 H Lactic Acid Calcium 5.9 L* Phosphorus 1.3 L Magnesium 1.3 L 11/19/18 11/19/18 11/20/18 21:50 23:55 00:01 WBC RBC Hgb Hct MCV MCH MCHC RDW Plt Count MPV Absolute Neuts (auto) Neutrophils % Lymphocytes % Monocytes % Eosinophils % Basophils % Nucleated RBC % PT with INR INR Sodium 149 H Potassium 3.1 L Chloride 119 H Carbon Dioxide 21 Anion Gap 9 BUN 11 Creatinine 0.9 Est GFR (CKD-EPI)AfAm 87.02 Est GFR (CKD-EPI)NonAf 75.08 POC Glucometer 101 138 Random Glucose 138 H Lactic Acid Calcium 7.2 L Phosphorus 1.4 L Magnesium 1.5 L 11/20/18 11/20/18 11/20/18 01:58 04:00 04:39 WBC RBC Hgb Hct MCV MCH MCHC RDW Plt Count MPV Absolute Neuts (auto) Neutrophils % Lymphocytes % Monocytes % Eosinophils % Basophils % Nucleated RBC % PT with INR INR Sodium 146 H Potassium 3.2 L Chloride 116 H Carbon Dioxide 20 L Anion Gap 11 BUN 7 Creatinine 0.8 Est GFR (CKD-EPI)AfAm 100.33 Est GFR (CKD-EPI)NonAf 86.57 POC Glucometer 154 239 Random Glucose 261 H Lactic Acid Calcium 7.5 L Phosphorus 1.2 L Magnesium 1.5 L 11/20/18 11/20/18 11/20/18 05:30 05:30 06:04 WBC 8.1 RBC 3.06 L Hgb 8.5 L Hct 25.2 L MCV 82.4 MCH 27.8 MCHC 33.7 RDW 18.5 H Plt Count 221 MPV 7.9 Absolute Neuts (auto) 6.7 Neutrophils % 82.7 Lymphocytes % 14.5 Monocytes % 2.3 L Eosinophils % 0.4 Basophils % 0.1 Nucleated RBC % 0 PT with INR INR Sodium 145 Potassium 3.3 L Chloride 114 H Carbon Dioxide 18 L Anion Gap 12 BUN 7 Creatinine 1.1 Est GFR (CKD-EPI)AfAm 68.27 Est GFR (CKD-EPI)NonAf 58.91 POC Glucometer 267 Random Glucose 266 H Lactic Acid Calcium 7.2 L Phosphorus 1.4 L Magnesium 1.6 L 11/20/18 11/20/18 08:29 08:30 WBC RBC Hgb Hct MCV MCH MCHC RDW Plt Count MPV Absolute Neuts (auto) Neutrophils % Lymphocytes % Monocytes % Eosinophils % Basophils % Nucleated RBC % PT with INR INR Sodium 145 Potassium 3.1 L Chloride 113 H Carbon Dioxide 20 L Anion Gap 12 BUN 5 L Creatinine 1.0 Est GFR (CKD-EPI)AfAm 76.61 Est GFR (CKD-EPI)NonAf 66.10 POC Glucometer 161 Random Glucose 173 H Lactic Acid Calcium 7.7 L Phosphorus 1.5 L Magnesium 1.3 L - IVF: D5 - D/C Insulin drip: provide SQ coverage - Follow BMP - Monitor off ABX - Follow final cultures - Floor once off IV Insulin drip. Requires ICU monitoring while on IV Insulin Dr Branden Critical care time spent in reviewing chart, evaluating patient and formulating plan 40 min
[2018-11-20 12:50] LABS: CALCIUM 7.4 mg/dL (8.5-10.1); CREATININE 0.7 mg/dL (0.55-1.3); PHOSPHOROUS 1.4 mg/dL (2.5-4.9); POTASSIUM 3.3 mmol/L (3.5-5.1)
[2018-11-20] MEDS ORDERED: POTASSIUM PHOSPHATE 30 MM in SODIUM CHLORIDE 250 ML IVPB ONE (14:37)
--- NOTE | 2018-11-20 15:46 | PN ---
Physical Exam: SUBJECTIVE: Patient seen and examined at bedside this morning. No acute events overnight. Patient reports abdominal pain, but offers no other complaints. Patient refuses to eat because of the abdominal pain. Difficult to assess patient as she only says "I cant" or "Yes/No". She was also noted to have loose bowel movement overnight. No fever, chills, denies chest pain, SOB. OBJECTIVE: Vital Signs Temperature 99.3 F 11/20/18 12:00 Pulse Rate 95 H 11/20/18 12:00 Respiratory Rate 30 H 11/20/18 12:00 Blood Pressure 100/50 L 11/20/18 12:00 O2 Sat by Pulse Oximetry (%) 99 11/20/18 09:00 GENERAL: The patient is awake, alert, and fully oriented, in no acute distress. HEAD: Normal with no signs of trauma. EYES: PERRLA, EOMI, sclera anicteric, conjunctiva clear. ENT: oropharynx clear without exudates, moist mucous membranes. NECK: Trachea midline, full range of motion, supple. LUNGS: Breath sounds equal, clear to auscultation bilaterally. HEART: Regular rate and rhythm, S1, S2 without murmur, rub or gallop. ABDOMEN: soft, +diffuse tenderness, nondistended, hypoactive bowel sounds, + guarding. EXTREMITIES: 2+ pulses, warm, well-perfused. Trace edema on b/l UE NEUROLOGICAL: Cranial nerves II through XII grossly intact. Normal speech, gait not observed. SKIN: Warm, dry, normal turgor, no rashes or lesions noted Laboratory Results - last 24 hr 11/19/18 11/19/18 11/19/18 15:55 16:00 16:00 WBC RBC Hgb Hct MCV MCH MCHC RDW Plt Count MPV Absolute Neuts (auto) Neutrophils % Lymphocytes % Monocytes % Eosinophils % Basophils % Nucleated RBC % Sodium 151 H Potassium 3.4 L Chloride 123 H Carbon Dioxide 20 L Anion Gap 8 BUN 17 Creatinine 1.0 Est GFR (CKD-EPI)AfAm 76.61 Est GFR (CKD-EPI)NonAf 66.10 POC Glucometer 103 Random Glucose 102 Lactic Acid 2.6 H* Calcium 7.1 L Phosphorus 1.9 L Magnesium 1.7 L 11/19/18 11/19/18 11/19/18 17:42 19:47 20:40 WBC RBC Hgb Hct MCV MCH MCHC RDW Plt Count MPV Absolute Neuts (auto) Neutrophils % Lymphocytes % Monocytes % Eosinophils % Basophils % Nucleated RBC % Sodium 153 H Potassium 3.0 L Chloride 127 H Carbon Dioxide 18 L Anion Gap 9 BUN 12 Creatinine 0.9 Est GFR (CKD-EPI)AfAm 87.02 Est GFR (CKD-EPI)NonAf 75.08 POC Glucometer 107 98 Random Glucose 107 H Lactic Acid Calcium 5.9 L* Phosphorus 1.3 L Magnesium 1.3 L 11/19/18 11/19/18 11/20/18 21:50 23:55 00:01 WBC RBC Hgb Hct MCV MCH MCHC RDW Plt Count MPV Absolute Neuts (auto) Neutrophils % Lymphocytes % Monocytes % Eosinophils % Basophils % Nucleated RBC % Sodium 149 H Potassium 3.1 L Chloride 119 H Carbon Dioxide 21 Anion Gap 9 BUN 11 Creatinine 0.9 Est GFR (CKD-EPI)AfAm 87.02 Est GFR (CKD-EPI)NonAf 75.08 POC Glucometer 101 138 Random Glucose 138 H Lactic Acid Calcium 7.2 L Phosphorus 1.4 L Magnesium 1.5 L 11/20/18 11/20/18 11/20/18 01:58 04:00 04:39 WBC RBC Hgb Hct MCV MCH MCHC RDW Plt Count MPV Absolute Neuts (auto) Neutrophils % Lymphocytes % Monocytes % Eosinophils % Basophils % Nucleated RBC % Sodium 146 H Potassium 3.2 L Chloride 116 H Carbon Dioxide 20 L Anion Gap 11 BUN 7 Creatinine 0.8 Est GFR (CKD-EPI)AfAm 100.33 Est GFR (CKD-EPI)NonAf 86.57 POC Glucometer 154 239 Random Glucose 261 H Lactic Acid Calcium 7.5 L Phosphorus 1.2 L Magnesium 1.5 L 11/20/18 11/20/18 11/20/18 05:30 05:30 06:04 WBC 8.1 RBC 3.06 L Hgb 8.5 L Hct 25.2 L MCV 82.4 MCH 27.8 MCHC 33.7 RDW 18.5 H Plt Count 221 MPV 7.9 Absolute Neuts (auto) 6.7 Neutrophils % 82.7 Lymphocytes % 14.5 Monocytes % 2.3 L Eosinophils % 0.4 Basophils % 0.1 Nucleated RBC % 0 Sodium 145 Potassium 3.3 L Chloride 114 H Carbon Dioxide 18 L Anion Gap 12 BUN 7 Creatinine 1.1 Est GFR (CKD-EPI)AfAm 68.27 Est GFR (CKD-EPI)NonAf 58.91 POC Glucometer 267 Random Glucose 266 H Lactic Acid Calcium 7.2 L Phosphorus 1.4 L Magnesium 1.6 L 11/20/18 11/20/18 11/20/18 08:29 08:30 11:42 WBC RBC Hgb Hct MCV MCH MCHC RDW Plt Count MPV Absolute Neuts (auto) Neutrophils % Lymphocytes % Monocytes % Eosinophils % Basophils % Nucleated RBC % Sodium 145 143 Potassium 3.1 L 3.3 L Chloride 113 H 113 H Carbon Dioxide 20 L 21 Anion Gap 12 9 BUN 5 L 6 L Creatinine 1.0 0.7 Est GFR (CKD-EPI)AfAm 76.61 117.91 Est GFR (CKD-EPI)NonAf 66.10 101.74 POC Glucometer 161 Random Glucose 173 H 233 H Lactic Acid Calcium 7.7 L 7.4 L Phosphorus 1.5 L 1.4 L Magnesium 1.3 L 2.0 11/20/18 11:48 WBC RBC Hgb Hct MCV MCH MCHC RDW Plt Count MPV Absolute Neuts (auto) Neutrophils % Lymphocytes % Monocytes % Eosinophils % Basophils % Nucleated RBC % Sodium Potassium Chloride Carbon Dioxide Anion Gap BUN Creatinine Est GFR (CKD-EPI)AfAm Est GFR (CKD-EPI)NonAf POC Glucometer 213 Random Glucose Lactic Acid Calcium Phosphorus Magnesium Active Medications Generic Name Dose Route Start Last Admin Trade Name Freq PRN Reason Stop Dose Admin Acetaminophen 650 mg 11/19/18 13:45 Tylenol - PO Q6H PRN Fever Or Pain Albuterol Sulfate 1 amp 11/18/18 15:26 Ventolin 0.083% Nebulizer Soln - NEB Q4H PRN SHORTNESS OF BREATH Chlorhexidine Gluconate 1 applic 11/18/18 22:00 11/19/18 22:08 Hibiclens For Decolonization - TP 1 applic HS [facility] Administration Heparin Sodium (Porcine) 5,000 unit 11/18/18 22:00 11/20/18 15:00 Heparin - SQ 5,000 unit TID [facility] Administration Potassium Chloride/Dextrose/Sod Cl 20 meq in 1,000 mls @ 75 mls/hr 11/20/18 08 :48 11/20/18 09:35 D5-1/2ns+20 Meq Kcl - IV 75 mls/hr ASDIR [facility] Administration Potassium Chloride 10 meq in 100 mls @ 100 mls/hr 11/20/18 14:45 Potassium Chloride 10 Meq Premix Ivpb - IVPB 11/20/18 17:44 Q60M [facility] Potassium Phosphate 30 mm/ 260 mls @ 43.333 mls/hr 11/20/18 14:37 Sodium Chloride IVPB 11/20/18 20:36 ONCE ONE Metoclopramide HCl 10 mg 11/20/18 09:10 11/20/18 10:57 Reglan Injection - IVPUSH 10 mg Q6H PRN Administration NAUSEA AND/OR VOMITING Mupirocin 1 applic 11/18/18 22:00 11/20/18 09:47 Bactroban Ointment (For Decolonization) - NS 11/23/18 21:59 1 applic BID [facility] Administration Pantoprazole Sodium 40 mg 11/19/18 10:00 11/20/18 09:45 Protonix Iv IVPUSH 40 mg DAILY [facility] Administration ASSESSMENT/PLAN: Patient is a 48 year old female with past medical history of HTN, CVA (left sided hemiparesis), HLD, IDDM, DKA, Dysphagia, Gastroparesis, esophageal stricture (EGD 02/14), presented to [place] ED after being found unresponsive by the neighbor. Patient was found to be in DKA. #Neurology -Extubation done yesterday. Patient awake and alert. #Cardiovascular -Hypovolemic shock, improved with IVF boluses, resolved -Hx of HLD -Hold Anti-HTN, Continue to monitor for hypotension -continue tele monitoring #Pulmonology -Acute respiratory failure, improved -On room air, keeping SpO2 >90% #GI -Hx of Dysphagia, Gastroparesis, esophageal stricture (EGD 02/14) -Will start Full liquid diet, as per patient's request, as tolerated -Activity OOB encouraged -Abdominal xray -Protonix for GI prophylaxis #Renal -Severe metabolic acidosis, 2/2 DKA, Lactic acidosis, resolved -GIANCARLO, likely pre-renal, resolved -HypoK, repleted -HypoPhos repleted -Continue IV fluids -Monitor UO -will continue to monitor renal function #Endo -Diabetic Ketoacidosis, anion gap metabolic acidosis, resolved -Hx of IDDM, known history of noncompliance -Anion gap closed -Insulin drip discontinued -Patient tolerating full liquid diet -Levemir 10units sq given, will continue daily -Insulin sliding scale implemented -BGM q4h -Continue IV fluids -BMP q6h -IV D5-1/2NS @75cc/hr -Endocrinology (Dr. Gama) consulted. #ID -Leukocytosis, likely reactive, resolved -Blood cultures, urine cultures no growth -C.diff antigen positive, toxin negative -CXR - no acute lung pathology -Lactic acid trending down -Will monitor off antibiotics -ID (Dr. Pimentel) consulted. #Heme -Leukocytosis, likely reactive, resolved -Normocytic Anemia, stable -will continue to monitor H/H -Blood cultures, urine cultures ordered #FEN -IV D5-1/2NS +20meq Kcl @75cc/hr -HypoK, hypoPhos, repleted -Routine bmp monitoring -Full liquid diet as tolerated #Prophylaxis -DVT: Heparin 5000unit sq tid -GI: Protonix 40mg daily #Disposition -full code -transfer to med-surg Visit type - Emergency Visit Emergency Visit: Yes ED Registration Date: 11/18/18 Care time: The patient presented to the Emergency Department on the above date and was hospitalized for further evaluation of their emergent condition. - New Patient This patient is new to me today: No - Critical Care Critical Care patient: Yes Total Critical Care Time (in minutes): 37 Critical Care Statement: The care of this patient involved high complexity decision making to prevent further life threatening deterioration of the patient 's condition and/or to evaluate & treat vital organ system(s) failure or risk of failure.
[2018-11-20] MEDS: KCL 10 MEQ IVPB 10 MEQ/100 ML INFUS.BAG IVPB SCH ×5 (16:01→22:58)
[2018-11-20] MEDS ORDERED: PT OWN MED DRAWER 7, Y5N ONE (17:23)
--- NOTE | 2018-11-20 17:36 | PN ---
Progress Note, Physician - Current Medication List Current Medications: Active Medications Acetaminophen (Tylenol -) 650 mg PO Q6H PRN PRN Reason: Fever Or Pain Albuterol Sulfate (Ventolin 0.083% Nebulizer Soln -) 1 amp NEB Q4H PRN PRN Reason: SHORTNESS OF BREATH Chlorhexidine Gluconate (Hibiclens For Decolonization -) 1 applic TP HS [facility] Last Admin: 11/19/18 22:08 Dose: 1 applic Heparin Sodium (Porcine) (Heparin -) 5,000 unit SQ TID [facility] Last Admin: 11/20/18 15:00 Dose: 5,000 unit Potassium Chloride/Dextrose/Sod Cl (D5-1/2ns+20 Meq Kcl -) 20 meq in 1,000 mls @ 75 mls/hr IV ASDIR [facility] Last Admin: 11/20/18 09:35 Dose: 75 mls/hr Potassium Chloride (Potassium Chloride 10 Meq Premix Ivpb -) 10 meq in 100 mls @ 100 mls/hr IVPB Q60M [facility] Stop: 11/20/18 17:44 Last Admin: 11/20/18 17:25 Dose: 100 mls/hr Potassium Phosphate 30 mm/ (Sodium Chloride) 260 mls @ 43.333 mls/hr IVPB ONCE ONE Stop: 11/20/18 20:36 Insulin Aspart (Novolog Vial Sliding Scale -) 1 vial SQ Q6HPO [facility]; Protocol Metoclopramide HCl (Reglan Injection -) 10 mg IVPUSH Q6H PRN PRN Reason: NAUSEA AND/OR VOMITING Last Admin: 11/20/18 10:57 Dose: 10 mg Mupirocin (Bactroban Ointment (For Decolonization) -) 1 applic NS BID [facility] Stop: 11/23/18 21:59 Last Admin: 11/20/18 09:47 Dose: 1 applic Pantoprazole Sodium (Protonix Iv) 40 mg IVPUSH DAILY [facility] Last Admin: 11/20/18 09:45 Dose: 40 mg - Objective Vital Signs: Vital Signs Temperature 99.3 F 11/20/18 12:00 Pulse Rate 85 11/20/18 16:00 Respiratory Rate 25 H 11/20/18 16:00 Blood Pressure 102/60 11/20/18 16:00 O2 Sat by Pulse Oximetry (%) 99 11/20/18 09:00 Constitutional: Yes: Mild Distress, Thin Eyes: Yes: WNL, Conjunctiva Clear, EOM Intact HENT: Yes: WNL, Atraumatic, Normocephalic Neck: Yes: WNL, Supple, Trachea Midline Cardiovascular: Yes: WNL, Regular Rate and Rhythm, Tachycardia Respiratory: Yes: WNL, Regular, Diminished (at bases) Gastrointestinal: Yes: WNL, Normal Bowel Sounds, Soft, Tenderness ...Rectal Exam: Yes: Deferred Genitourinary: Yes: Lott Present (to be removed) Musculoskeletal: Yes: WNL Extremities: Yes: WNL Edema: No Peripheral Pulses WNL: Yes Integumentary: Yes: WNL Neurological: Yes: Confusion ...Motor Strength: LUE, LLE, RUE, RLE (moving all extremities) Psychiatric: Yes: Agitated Labs: CBC, BMP 11/20/18 05:30 11/20/18 11:42 INR, PTT INR 0.94 (0.83-1.09) 11/19/18 05:30 - ....Imaging Chest X-ray: Report Reviewed, Image Reviewed X-ray: Report Reviewed, Image Reviewed (AXR-early signs of ileus) Problem List - Problems (1) Dehydration, mild Code(s): E86.0 - DEHYDRATION (2) Hypokalemia Assessment/Plan: daily BMP replete K as needed Code(s): E87.6 - HYPOKALEMIA (3) Hyperglycemia, unspecified Assessment/Plan: On insulin drip as per ICU team titrate according for ICU protocol -Continue insulin drip gtt at 1 unit/hr -BGM q1h , BMP q4Has per ICU team -IV D5-1/2NS @200cc/hr -Endocrinology (Dr. Gama) consulted. Code(s): R73.9 - HYPERGLYCEMIA, UNSPECIFIED (4) Lactic acid acidosis Code(s): E87.2 - ACIDOSIS (5) Hypovolemic shock Assessment/Plan: Hypovolemic shock, improved with IVF boluses Continue to monitor for hypotension hold home antihypertensives ICU monitoring WBC trending down continue emperic zosyn Dr Pimentel consulted and appreciate input Code(s): R57.1 - HYPOVOLEMIC SHOCK (6) Acute respiratory failure Assessment/Plan: Acute respiratory failure resolved extuabted yesterday ABG and CXR daily Code(s): J96.00 - ACUTE RESPIRATORY FAILURE, UNSP W HYPOXIA OR HYPERCAPNIA (7) Abdominal pain Assessment/Plan: AXR shows early sign of ileus c dif pending continue PPI Code(s): R10.9 - UNSPECIFIED ABDOMINAL PAIN Impression/Plan Impression/Plan: ASSESSMENT/PLAN: Patient is a 48 year old female with past medical history of HTN, CVA (left sided hemiparesis), HLD, IDDM, DKA, Dysphagia, Gastroparesis, esophageal stricture (EGD 02/14), presented to [place] ED after being found unresponsive by the neighbor. Patient was found to be in DKA. #FEN -IV D5-1/2NS @200cc/hr -HypoK, repleted -Routine bmp monitoring as per ICU team -NPO. Will resume diabetic diet once extubated. #Prophylaxis -DVT: Heparin 5000unit sq tid -GI: Protonix 40mg daily #Disposition -full code -ICU monitoring Visit type - Emergency Visit Emergency Visit: Yes ED Registration Date: 11/18/18 Care time: The patient presented to the Emergency Department on the above date and was hospitalized for further evaluation of their emergent condition. - New Patient This patient is new to me today: No - Critical Care Critical Care patient: Yes Total Critical Care Time (in minutes): 30 Critical Care Statement: The care of this patient involved high complexity decision making to prevent further life threatening deterioration of the patient 's condition and/or to evaluate & treat vital organ system(s) failure or risk of failure. - Discharge Referral Referred to [facility] No
[2018-11-20] MEDS: INSULIN SLIDING SCALE (NOVOLOG) 1 VIAL SQ SCH (17:54)
[2018-11-20 20:56] LABS: ALBUMIN 2.2 g/dl (3.4-5.0); BILIRUBIN,TOTAL 0.3 mg/dL (0.2-1); CALCIUM 7.4 mg/dL (8.5-10.1); CREATININE 0.6 mg/dL (0.55-1.3); MAGNESIUM 2.2 mg/dL (1.8-2.4); PHOSPHOROUS 1.5 mg/dL (2.5-4.9); POTASSIUM 3.4 mmol/L (3.5-5.1); TOT PROT 4.8 g/dl (6.4-8.2)
[2018-11-20] MEDS ORDERED: DEXTROSE 50%-WATER - 25 GM/50 ML VIAL IVPUSH ONE (21:19)
[2018-11-20] MEDS ORDERED: POTASSIUM PHOSPHATE 30 MM in DEXTROSE 5%-WATER - 250 ML IVPB ONE (21:19)
[2018-11-20] MEDS ORDERED: LACTATED RINGERS SOLUTION 1,000 ML/1,000 ML INFUS.BAG IV STA (21:30)
[2018-11-20] MEDS ORDERED: DEXTROSE 5%-LACTATED RINGERS 1,000 ML IV SCH (21:45)
[2018-11-20] MEDS: CHLORHEXIDINE GLUCONATE 4% CLEANSER FOR DECOLONIZATION TP SCH (22:29)
[2018-11-20] MEDS: D5-LR+20 MEQ KCL - 20 MEQ/1,000 ML INFUS.BAG IV SCH (22:57)
[2018-11-21] MEDS: KCL 10 MEQ IVPB 10 MEQ/100 ML INFUS.BAG IVPB SCH (00:09)
[2018-11-21] MEDS: INSULIN SLIDING SCALE (NOVOLOG) 1 VIAL SQ SCH ×4 (00:14→22:34)
[2018-11-21] MEDS ORDERED: QUEtiapine FUMARATE 25 MG TABLET (FP) PO ONE (00:15)
[2018-11-21] MEDS: HEPARIN NA (PORCINE) 5,000 UNITS/ML 1ML VIAL SQ SCH ×3 (05:57→22:29)
[2018-11-21] MEDS: INSULIN (LEVEMIR) 100 UNITS/ML UNITS SQ SCH ×2 (06:02→09:56)
[2018-11-21 06:29] LABS: BASO % 0.3 % (0-2.0); EOS % 0.4 % (0-4.5); HEMATOCRIT 25.4 % (32.4-45.2); HEMOGLOBIN 8.3 GM/dL (10.7-15.3); LYMPH % 20.5 % (8-40); MCH 26.9 pg (25.7-33.7); MCHC 32.8 g/dl (32.0-36.0); MEAN CELL VOLUME 81.9 fl (80-96); MEAN PLT VOLUME 7.7 fl (7.5-11.1); MONO % 2.8 % (3.8-10.2); PLATELET COUNT 193 K/MM3 (134-434); RDW 18.7 % (11.6-15.6); WHITE BLOOD COUNT 9.6 K/mm3 (4.0-10.0)
[2018-11-21 07:08] LABS: CALCIUM 7.5 mg/dL (8.5-10.1); CREATININE 0.6 mg/dL (0.55-1.3); MAGNESIUM 2.4 mg/dL (1.8-2.4); PHOSPHOROUS 1.8 mg/dL (2.5-4.9); POTASSIUM 3.8 mmol/L (3.5-5.1)
[2018-11-21] MEDS: D5-LR+20 MEQ KCL - 20 MEQ/1,000 ML INFUS.BAG IV SCH (08:55)
--- NOTE | 2018-11-21 09:30 | PN ---
Physical Exam: SUBJECTIVE: Patient seen and examined at bedside. BGM dropped to 30s after long acting insulin which is now being held, just on insulin ss. Patient has been passing gas and abdominal pain has decreased. OBJECTIVE: Vital Signs Period Temp Pulse Resp BP Sys/Rapp Pulse Ox Last 24 Hr 98 F-99.3 F 81-95 9-30 88-129/50-88 99 GENERAL: The patient is awake, alert, and fully oriented, in no acute distress. HEAD: Normal with no signs of trauma. EYES: PERRL, extraocular movements intact, sclera anicteric, conjunctiva clear. No ptosis. ENT: Ears normal, nares patent, oropharynx clear without exudates, moist mucous membranes. NECK: Trachea midline, full range of motion, supple. LUNGS: Breath sounds equal, clear to auscultation bilaterally, no wheezes, no crackles, no accessory muscle use. HEART: Regular rate and rhythm, S1, S2 without murmur, rub or gallop. ABDOMEN: Soft, nontender, nondistended, normoactive bowel sounds, no guarding, no rebound, no hepatosplenomegaly, no masses. EXTREMITIES: 2+ pulses, warm, well-perfused, no edema. NEUROLOGICAL: Cranial nerves II through XII grossly intact. Normal speech, gait not observed. PSYCH: Normal mood, normal affect. SKIN: Warm, dry, normal turgor, no rashes or lesions noted Laboratory Results - last 24 hr 11/20/18 11/20/18 11/20/18 08:30 11:42 11:48 WBC RBC Hgb Hct MCV MCH MCHC RDW Plt Count MPV Absolute Neuts (auto) Neutrophils % Lymphocytes % Monocytes % Eosinophils % Basophils % Nucleated RBC % Sodium 145 143 Potassium 3.1 L 3.3 L Chloride 113 H 113 H Carbon Dioxide 20 L 21 Anion Gap 12 9 BUN 5 L 6 L Creatinine 1.0 0.7 Est GFR (CKD-EPI)AfAm 76.61 117.91 Est GFR (CKD-EPI)NonAf 66.10 101.74 POC Glucometer 213 Random Glucose 173 H 233 H Calcium 7.7 L 7.4 L Phosphorus 1.5 L 1.4 L Magnesium 1.3 L 2.0 Total Bilirubin AST ALT Alkaline Phosphatase Total Protein Albumin 11/20/18 11/20/18 11/20/18 17:47 19:10 21:16 WBC RBC Hgb Hct MCV MCH MCHC RDW Plt Count MPV Absolute Neuts (auto) Neutrophils % Lymphocytes % Monocytes % Eosinophils % Basophils % Nucleated RBC % Sodium 146 H Potassium 3.4 L Chloride 116 H Carbon Dioxide 25 Anion Gap 6 L BUN 6 L Creatinine 0.6 Est GFR (CKD-EPI)AfAm 124.05 Est GFR (CKD-EPI)NonAf 107.03 POC Glucometer 61 35 Random Glucose 39 L* Calcium 7.4 L Phosphorus 1.5 L Magnesium 2.2 Total Bilirubin 0.3 AST 18 ALT 20 Alkaline Phosphatase 111 Total Protein 4.8 L Albumin 2.2 L 11/20/18 11/21/18 11/21/18 21:55 00:12 02:48 WBC RBC Hgb Hct MCV MCH MCHC RDW Plt Count MPV Absolute Neuts (auto) Neutrophils % Lymphocytes % Monocytes % Eosinophils % Basophils % Nucleated RBC % Sodium Potassium Chloride Carbon Dioxide Anion Gap BUN Creatinine Est GFR (CKD-EPI)AfAm Est GFR (CKD-EPI)NonAf POC Glucometer 140 141 116 Random Glucose Calcium Phosphorus Magnesium Total Bilirubin AST ALT Alkaline Phosphatase Total Protein Albumin 11/21/18 11/21/18 11/21/18 05:30 05:30 05:58 WBC 9.6 RBC 3.10 L Hgb 8.3 L Hct 25.4 L MCV 81.9 MCH 26.9 MCHC 32.8 RDW 18.7 H Plt Count 193 MPV 7.7 Absolute Neuts (auto) 7.3 Neutrophils % 76.0 Lymphocytes % 20.5 D Monocytes % 2.8 L Eosinophils % 0.4 Basophils % 0.3 Nucleated RBC % 0 Sodium 149 H Potassium 3.8 Chloride 119 H Carbon Dioxide 23 Anion Gap 7 L BUN 5 L Creatinine 0.6 Est GFR (CKD-EPI)AfAm 124.05 Est GFR (CKD-EPI)NonAf 107.03 POC Glucometer 156 Random Glucose 149 H Calcium 7.5 L Phosphorus 1.8 L Magnesium 2.4 Total Bilirubin AST ALT Alkaline Phosphatase Total Protein Albumin 11/21/18 08:51 WBC RBC Hgb Hct MCV MCH MCHC RDW Plt Count MPV Absolute Neuts (auto) Neutrophils % Lymphocytes % Monocytes % Eosinophils % Basophils % Nucleated RBC % Sodium Potassium Chloride Carbon Dioxide Anion Gap BUN Creatinine Est GFR (CKD-EPI)AfAm Est GFR (CKD-EPI)NonAf POC Glucometer 270 Random Glucose Calcium Phosphorus Magnesium Total Bilirubin AST ALT Alkaline Phosphatase Total Protein Albumin Active Medications Generic Name Dose Route Start Last Admin Trade Name Freq PRN Reason Stop Dose Admin Acetaminophen 650 mg 11/19/18 13:45 11/20/18 19:05 Tylenol - PO 650 mg Q6H PRN Administration Fever Or Pain Albuterol Sulfate 1 amp 11/18/18 15:26 Ventolin 0.083% Nebulizer Soln - NEB Q4H PRN SHORTNESS OF BREATH Chlorhexidine Gluconate 1 applic 11/18/18 22:00 11/20/18 22:29 Hibiclens For Decolonization - TP 1 applic HS [facility] Administration Heparin Sodium (Porcine) 5,000 unit 11/18/18 22:00 11/21/18 05:57 Heparin - SQ 5,000 unit TID [facility] Administration Dextrose/Lactated Ringer's 20 meq in 1,000 mls @ 125 mls/hr 11/20/18 22:45 08:55 D5-Lr+20 Meq Kcl - IV 125 mls/hr ASDIR [facility] Administration Insulin Aspart 1 vial 11/20/18 18:00 11/21/18 06:00 Novolog Vial Sliding Scale - SQ Not Given Q6HPO [facility] Protocol Insulin Detemir 10 units 11/21/18 07:00 11/21/18 06:02 Levemir Vial SQ Not Given AM [facility] Metoclopramide HCl 10 mg 11/20/18 09:10 11/20/18 17:37 Reglan Injection - IVPUSH 10 mg Q6H PRN Administration NAUSEA AND/OR VOMITING Mupirocin 1 applic 11/18/18 22:00 11/20/18 22:24 Bactroban Ointment (For Decolonization) - NS 11/23/18 21:59 1 applic BID [facility] Administration Pantoprazole Sodium 40 mg 11/19/18 10:00 11/20/18 09:45 Protonix Iv IVPUSH 40 mg DAILY [facility] Administration ASSESSMENT/PLAN: Patient is a 48 year old female with past medical history of HTN, CVA (left sided hemiparesis), HLD, IDDM, DKA, Dysphagia, Gastroparesis, esophageal stricture (EGD 02/14), presented to [place] ED after being found unresponsive by the neighbor. Patient was found to be in DKA. NEURO -Patient awake and alert. CARDIO/VASC -Hypovolemic shock, improved with IVF boluses, resolved -Hx of HLD -Hold bp meds for now, continue to monitor for hypotension PULM -On room air, keeping SpO2 >90% GI -Hx of Dysphagia, Gastroparesis, esophageal stricture (EGD 02/14) -Tolerating PO diet, abdominal pain resolving -Activity OOB encouraged -Reglan for gastroparesis RENAL -Severe metabolic acidosis, 2/2 DKA, Lactic acidosis, resolved -GIANCARLO, likely pre-renal, resolved -HypoK, repleted -HypoPhos repleted -Monitor UO -Can DC fluids, tolerating PO -Trend lytes and renal function ENDO -Diabetic Ketoacidosis, anion gap metabolic acidosis, resolved -Hx of IDDM, known history of noncompliance -Anion gap closed -Insulin drip discontinued -Patient diet -Holding Levemir due to hypoglycemia -Insulin sliding scale implemented -BGM q4h -DC fluids -BMP q6h -Endocrinology (Dr. Gama) consulted. ID -Leukocytosis, likely reactive, resolved -Blood cultures, urine cultures no growth -C.diff antigen positive, toxin negative -CXR - no acute lung pathology -Lactic acid trending down -ID (Dr. Pimentel) consulted. HEME/ONC -Leukocytosis, likely reactive, resolved -Normocytic Anemia, stable -will continue to monitor H/H -Blood cultures, urine cultures ordered FEN -IV D5-1/2NS +20meq Kcl @75cc/hr -Routine bmp monitoring -Diet as tolerated PPx -DVT: Heparin 5000unit sq tid -GI: Protonix 40mg daily Dispo: Stable for transfer to floors (med/surg) Visit type - Emergency Visit Emergency Visit: Yes ED Registration Date: 11/18/18 Care time: The patient presented to the Emergency Department on the above date and was hospitalized for further evaluation of their emergent condition. - New Patient This patient is new to me today: Yes Date on this admission: 11/21/18 - Critical Care Critical Care patient: Yes Total Critical Care Time (in minutes): 35 Critical Care Statement: The care of this patient involved high complexity decision making to prevent further life threatening deterioration of the patient 's condition and/or to evaluate & treat vital organ system(s) failure or risk of failure.
--- NOTE | 2018-11-21 09:54 | PN ---
Progress Note (short form) - Note Progress Note: Awake, alert C/O left hand pain Gives h/o left Clavicle fracture Says her Insulin pump is not working Doesn't know how she developed DKA Vital Signs Period Temp Pulse Resp BP Sys/Rapp Pulse Ox Last 24 Hr 98 F-99.3 F 81-95 9-30 88-129/50-88 99 PE: AOx3 HEENT: EOMI Neck: Supple, No JVD Lungs: CTA CVS: S1S2 Abd: Benign Ext: Mild swelling left hand CMP Sodium 149 mmol/L (136-145) H 11/21/18 05:30 Potassium 3.8 mmol/L (3.5-5.1) 11/21/18 05:30 Chloride 119 mmol/L (98-107) H 11/21/18 05:30 Carbon Dioxide 23 mmol/L (21-32) 11/21/18 05:30 Anion Gap 7 MMOL/L (8-16) L 11/21/18 05:30 BUN 5 mg/dL (7-18) L 11/21/18 05:30 Creatinine 0.6 mg/dL (0.55-1.3) 11/21/18 05:30 Est GFR (CKD-EPI)AfAm 124.05 11/21/18 05:30 Est GFR (CKD-EPI)NonAf 107.03 11/21/18 05:30 POC Glucometer 270 UNITS (80-120) 11/21/18 08:51 Random Glucose 149 mg/dL (74-106) H 11/21/18 05:30 Lactic Acid 2.6 mmol/L (0.4-2.0) H* 11/19/18 16:00 Calcium 7.5 mg/dL (8.5-10.1) L 11/21/18 05:30 Phosphorus 1.8 mg/dL (2.5-4.9) L 11/21/18 05:30 Magnesium 2.4 mg/dL (1.8-2.4) 11/21/18 05:30 Total Bilirubin 0.3 mg/dL (0.2-1) 11/20/18 19:10 AST 18 U/L (15-37) 11/20/18 19:10 ALT 20 U/L (13-61) 11/20/18 19:10 Alkaline Phosphatase 111 U/L (45-117) 11/20/18 19:10 Creatine Kinase 55 U/L (26-192) 11/18/18 13:24 Total Protein 4.8 g/dl (6.4-8.2) L 11/20/18 19:10 Albumin 2.2 g/dl (3.4-5.0) L 11/20/18 19:10 Current Medications Generic Name Dose Route Start Last Admin Trade Name Freq PRN Reason Stop Dose Admin Acetaminophen 650 mg 11/19/18 13:45 11/20/18 19:05 Tylenol - PO 650 mg Q6H PRN Administration Fever Or Pain Albuterol Sulfate 1 amp 11/18/18 15:26 Ventolin 0.083% Nebulizer Soln - NEB Q4H PRN SHORTNESS OF BREATH Chlorhexidine Gluconate 1 applic 11/18/18 22:00 11/20/18 22:29 Hibiclens For Decolonization - TP 1 applic HS [facility] Administration Heparin Sodium (Porcine) 5,000 unit 11/18/18 22:00 11/21/18 05:57 Heparin - SQ 5,000 unit TID [facility] Administration Insulin Aspart 1 vial 11/20/18 18:00 11/21/18 06:00 Novolog Vial Sliding Scale - SQ Not Given Q6HPO [facility] Protocol Insulin Detemir 10 units 11/21/18 07:00 11/21/18 06:02 Levemir Vial SQ Not Given AM [facility] Metoclopramide HCl 10 mg 11/20/18 09:10 11/20/18 17:37 Reglan Injection - IVPUSH 10 mg Q6H PRN Administration NAUSEA AND/OR VOMITING Mupirocin 1 applic 11/18/18 22:00 11/20/18 22:24 Bactroban Ointment (For Decolonization) - NS 11/23/18 21:59 1 applic BID [facility] Administration Pantoprazole Sodium 40 mg 11/19/18 10:00 11/20/18 09:45 Protonix Iv IVPUSH 40 mg DAILY [facility] Administration AP: DKA resolved, episode of hypoglycemia T1DM Electrolyte Imbalance ?Sepsis Continue Levemir 10 units daily BGM Q 2 hr NOvolog SS Q ACHS Tolerated liquid diet in the morning today Conitnue D5 to maintain FS 120 to 180. Pt need long acting Insulin to prevent recurrance of DKA. Drip rate maybe adjusted as necessary but should not be stopped until pt is able tolerate oral feeding. IV hydration as necessary electrolyte replacement as necessary Will f/u
--- NOTE | 2018-11-21 09:56 | PN ---
Teaching Attending Note Name of Resident: Sruthi Martell ATTENDING PHYSICIAN STATEMENT I saw and evaluated the patient. I reviewed the resident's note and discussed the case with the resident. I agree with the resident's findings and plan as documented. SUBJECTIVE: Patient seen and examined in the ICU. Remains extubated. Abdominal discomfort / pain is improving. Was able to have some PO intake this AM. 1 episode of hypoglycemia to 35. Intake & Output 11/18/18 11/19/18 11/20/18 11/21/18 23:59 23:59 23:59 23:59 Intake Total 4705 5160 2749 Output Total 1590 1200 2000 Balance 3115 3960 749 Weight 56 lb 6.4 oz 139 lb 137 lb 133 lb 6.4 oz Last Vital Signs Temp Pulse Resp BP Pulse Ox 98.2 F 93 H 22 H 127/75 99 11/21/18 06:00 11/21/18 08:00 11/21/18 08:00 11/21/18 08:00 11/21/18 03:01 Active Medications Acetaminophen (Tylenol -) 650 mg PO Q6H PRN PRN Reason: Fever Or Pain Last Admin: 11/20/18 19:05 Dose: 650 mg Albuterol Sulfate (Ventolin 0.083% Nebulizer Soln -) 1 amp NEB Q4H PRN PRN Reason: SHORTNESS OF BREATH Chlorhexidine Gluconate (Hibiclens For Decolonization -) 1 applic TP HS [facility] Last Admin: 11/20/18 22:29 Dose: 1 applic Heparin Sodium (Porcine) (Heparin -) 5,000 unit SQ TID [facility] Last Admin: 11/21/18 05:57 Dose: 5,000 unit Insulin Aspart (Novolog Vial Sliding Scale -) 1 vial SQ Q6HPO [facility]; Protocol Last Admin: 11/21/18 06:00 Dose: Not Given Insulin Detemir (Levemir Vial) 10 units SQ AM [facility] Last Admin: 11/21/18 06:02 Dose: Not Given Metoclopramide HCl (Reglan Injection -) 10 mg IVPUSH Q6H PRN PRN Reason: NAUSEA AND/OR VOMITING Last Admin: 11/20/18 17:37 Dose: 10 mg Mupirocin (Bactroban Ointment (For Decolonization) -) 1 applic NS BID [facility] Stop: 11/23/18 21:59 Last Admin: 11/20/18 22:24 Dose: 1 applic Pantoprazole Sodium (Protonix Iv) 40 mg IVPUSH DAILY [facility] Last Admin: 11/20/18 09:45 Dose: 40 mg Gen: Extubated, Awake and alert Heart: S1S2, regular Lung: decreased breath sounds at the bases Abd: soft, (+) mild tenderness, (-) guarding or rigidity Ext: no edema Laboratory Results - last 24 hr 11/20/18 11/20/18 11/20/18 11:42 11:48 17:47 WBC RBC Hgb Hct MCV MCH MCHC RDW Plt Count MPV Absolute Neuts (auto) Neutrophils % Lymphocytes % Monocytes % Eosinophils % Basophils % Nucleated RBC % Sodium 143 Potassium 3.3 L Chloride 113 H Carbon Dioxide 21 Anion Gap 9 BUN 6 L Creatinine 0.7 Est GFR (CKD-EPI)AfAm 117.91 Est GFR (CKD-EPI)NonAf 101.74 POC Glucometer 213 61 Random Glucose 233 H Calcium 7.4 L Phosphorus 1.4 L Magnesium 2.0 Total Bilirubin AST ALT Alkaline Phosphatase Total Protein Albumin 11/20/18 11/20/18 11/20/18 19:10 21:16 21:55 WBC RBC Hgb Hct MCV MCH MCHC RDW Plt Count MPV Absolute Neuts (auto) Neutrophils % Lymphocytes % Monocytes % Eosinophils % Basophils % Nucleated RBC % Sodium 146 H Potassium 3.4 L Chloride 116 H Carbon Dioxide 25 Anion Gap 6 L BUN 6 L Creatinine 0.6 Est GFR (CKD-EPI)AfAm 124.05 Est GFR (CKD-EPI)NonAf 107.03 POC Glucometer 35 140 Random Glucose 39 L* Calcium 7.4 L Phosphorus 1.5 L Magnesium 2.2 Total Bilirubin 0.3 AST 18 ALT 20 Alkaline Phosphatase 111 Total Protein 4.8 L Albumin 2.2 L 11/21/18 11/21/18 11/21/18 00:12 02:48 05:30 WBC RBC Hgb Hct MCV MCH MCHC RDW Plt Count MPV Absolute Neuts (auto) Neutrophils % Lymphocytes % Monocytes % Eosinophils % Basophils % Nucleated RBC % Sodium 149 H Potassium 3.8 Chloride 119 H Carbon Dioxide 23 Anion Gap 7 L BUN 5 L Creatinine 0.6 Est GFR (CKD-EPI)AfAm 124.05 Est GFR (CKD-EPI)NonAf 107.03 POC Glucometer 141 116 Random Glucose 149 H Calcium 7.5 L Phosphorus 1.8 L Magnesium 2.4 Total Bilirubin AST ALT Alkaline Phosphatase Total Protein Albumin 11/21/18 11/21/18 11/21/18 05:30 05:58 08:51 WBC 9.6 RBC 3.10 L Hgb 8.3 L Hct 25.4 L MCV 81.9 MCH 26.9 MCHC 32.8 RDW 18.7 H Plt Count 193 MPV 7.7 Absolute Neuts (auto) 7.3 Neutrophils % 76.0 Lymphocytes % 20.5 D Monocytes % 2.8 L Eosinophils % 0.4 Basophils % 0.3 Nucleated RBC % 0 Sodium Potassium Chloride Carbon Dioxide Anion Gap BUN Creatinine Est GFR (CKD-EPI)AfAm Est GFR (CKD-EPI)NonAf POC Glucometer 156 270 Random Glucose Calcium Phosphorus Magnesium Total Bilirubin AST ALT Alkaline Phosphatase Total Protein Albumin ASSESSMENT AND PLAN: Diabetic Ketoacidosis Severe Metabolic Acidosis Acute Respiratory Failure Hypovolemic Shock Acute Kidney Injury r/o Sepsis HTN Hyperlipidemia Noncompliance - PO as tolerated - SQ Insulin regimen per Endocrine - Follow BGM - Monitor off ABX - Floor Dr Otero
[2018-11-21] MEDS: PANTOPRAZOLE SODIUM 40 MG VIAL IVPUSH SCH (09:57)
[2018-11-21] MEDS: MUPIROCIN 2% TOPICAL OINTMENT FOR DECOLONIZATION NS SCH (10:03)
[2018-11-21] MEDS ORDERED: INSULIN SLIDING SCALE (NOVOLOG) 1 VIAL SQ SCH ×2 (11:00→22:00)
[2018-11-21] MEDS ORDERED: METOCLOPRAMIDE HCL INJECTION 10 MG/2 ML VIAL IVPUSH PRN (14:55)
[2018-11-21] MEDS ORDERED: ALBUTEROL SO4 0.083% IH SOL 2.5 MG/3 ML VIAL.NEB. NEB PRN (14:55)
--- NOTE | 2018-11-21 15:37 | PN ---
Progress Note, Physician History of Present Illness: Pt seen and examined. Events noted. Pt currently alert, afebrile. C/O Lt shoulder pain/Fx. Has abd pain but no episodes of vomiting today, 2 soft BMs. - Current Medication List Current Medications: Active Medications Acetaminophen (Tylenol -) 650 mg PO Q6H PRN PRN Reason: Fever Or Pain Albuterol Sulfate (Ventolin 0.083% Nebulizer Soln -) 1 amp NEB Q4H PRN PRN Reason: SHORTNESS OF BREATH Heparin Sodium (Porcine) (Heparin -) 5,000 unit SQ TID [facility] Insulin Aspart (Novolog Vial Sliding Scale -) 1 vial SQ HS [facility]; Protocol Insulin Aspart (Novolog Vial Sliding Scale -) 1 vial SQ TIDAC [facility]; Protocol Insulin Detemir (Levemir Vial) 10 units SQ AM [facility] Metoclopramide HCl (Reglan Injection -) 10 mg IVPUSH Q6H PRN PRN Reason: NAUSEA AND/OR VOMITING Pantoprazole Sodium (Protonix Iv) 40 mg IVPUSH DAILY [facility] - Objective Vital Signs: Vital Signs Temperature 99.2 F 11/21/18 10:00 Pulse Rate 93 H 11/21/18 12:00 Respiratory Rate 26 H 11/21/18 12:00 Blood Pressure 143/93 11/21/18 12:00 O2 Sat by Pulse Oximetry (%) 99 11/21/18 09:00 Constitutional: Yes: No Distress, Calm Cardiovascular: Yes: Regular Rate and Rhythm Respiratory: Yes: CTA Bilaterally Gastrointestinal: Yes: Normal Bowel Sounds, Soft, Tenderness (with palpation) Genitourinary: Yes: WNL Neurological: Yes: Alert Labs: CBC, BMP 11/21/18 05:30 11/21/18 05:30 INR, PTT INR 0.94 (0.83-1.09) 11/19/18 05:30 Microbiology 11/18/18 17:00 Blood - Peripheral Venous Blood Culture - Preliminary NO GROWTH OBTAINED AFTER 48 HOURS, INCUBATION TO CONTINUE FOR 3 DAYS. 11/18/18 17:00 Blood - Peripheral Venous Blood Culture - Preliminary NO GROWTH OBTAINED AFTER 48 HOURS, INCUBATION TO CONTINUE FOR 3 DAYS. 11/20/18 10:30 Stool Clostridioides difficile Antigen - Final 11/20/18 10:30 Stool Clostridioides difficile Toxin Assay - Final 11/18/18 13:24 Urine - Urine - Catheterized Urine Culture - Final - ....Imaging Chest X-ray: Report Reviewed Problem List - Problems (1) Acute respiratory failure Code(s): J96.00 - ACUTE RESPIRATORY FAILURE, UNSP W HYPOXIA OR HYPERCAPNIA (2) Ketoacidosis in type I diabetes mellitus Code(s): E10.10 - TYPE 1 DIABETES MELLITUS WITH KETOACIDOSIS WITHOUT COMA (3) GIANCARLO (acute kidney injury) Code(s): N17.9 - ACUTE KIDNEY FAILURE, UNSPECIFIED (4) Abdominal pain Code(s): R10.9 - UNSPECIFIED ABDOMINAL PAIN (5) DKA (diabetic ketoacidoses) Code(s): E13.10 - OTH DIABETES MELLITUS WITH KETOACIDOSIS WITHOUT COMA Qualifiers: Diabetes mellitus type: other specified (including MARITO) Diabetes mellitus complication detail: without coma Qualified Code(s): E13.10 - Other specified diabetes mellitus with ketoacidosis without coma (6) Cerebrovascular accident (CVA) Code(s): I63.9 - CEREBRAL INFARCTION, UNSPECIFIED Qualifiers: CVA mechanism: unspecified Qualified Code(s): I63.9 - Cerebral infarction, unspecified (7) Diabetes mellitus, insulin dependent (IDDM), uncontrolled Code(s): E10.65 - TYPE 1 DIABETES MELLITUS WITH HYPERGLYCEMIA (8) Leukocytosis Code(s): D72.829 - ELEVATED WHITE BLOOD CELL COUNT, UNSPECIFIED Assessment/Plan Fever Leukocytosis DKA Respiratory failure s/p extubation IDDM Hx of CVA HTN -- pt currently afebrile, wbc normal -- Culture results noted -- monitor off antibiotics -- stool CDT negative (Ag+), monitor for diarrhea -- continue monitor
--- NOTE | 2018-11-21 15:56 | PN ---
Progress Note (short form) - Note Progress Note: (1) Dehydration, mild 2/2 to gastroenteritis vs C. Diff Code(s): E86.0 - DEHYDRATION Hypokalemia 2/2 Diarrhea daily BMP replete K as needed Hyperglycemia with DKA 2/2 to sepsis Anion gap was closed, insulin drip was d/c patient is stable to be transferred to the floor f/u Endocrinology (Dr. Gama) consulted. Lactic acid acidosis - resolved Hypovolemic shock - resolved resume home antihypertensives continue emperic zosyn Acute respiratory failure s/p extubation she is doing well Abdominal pain ; 2/2 c diff start vancomycin PO c dif pending continue PPI leukocytosis - resolving Problem List - Problems (1) C. difficile diarrhea Code(s): A04.72 - ENTEROCOLITIS D/T CLOSTRIDIUM DIFFICILE, NOT SPCF RECUR (2) Acute respiratory failure Code(s): J96.00 - ACUTE RESPIRATORY FAILURE, UNSP W HYPOXIA OR HYPERCAPNIA (3) Hypovolemic shock Code(s): R57.1 - HYPOVOLEMIC SHOCK (4) Ketoacidosis in type I diabetes mellitus Code(s): E10.10 - TYPE 1 DIABETES MELLITUS WITH KETOACIDOSIS WITHOUT COMA (5) GIANCARLO (acute kidney injury) Code(s): N17.9 - ACUTE KIDNEY FAILURE, UNSPECIFIED (6) Abdominal pain Code(s): R10.9 - UNSPECIFIED ABDOMINAL PAIN (7) Diabetic keto-acidosis Code(s): E13.10 - OTH DIABETES MELLITUS WITH KETOACIDOSIS WITHOUT COMA (8) Lactic acid acidosis Code(s): E87.2 - ACIDOSIS (9) Septic shock Code(s): A41.9 - SEPSIS, UNSPECIFIED ORGANISM; R65.21 - SEVERE SEPSIS WITH SEPTIC SHOCK Visit type - Emergency Visit Emergency Visit: No - New Patient This patient is new to me today: Yes Date on this admission: 11/21/18 - Critical Care Critical Care patient: No
[2018-11-21] MEDS: VANCOMYCIN 250 MG/5 ML ORAL SOLUTION PO SCH ×2 (18:18→23:46)
[2018-11-21] MEDS: ACETAMINOPHEN 325 MG TABLET (FP) PO PRN (20:33)
[2018-11-21] MEDS ORDERED: INSULIN (NOVOLOG) ASPART 100 UNITS/ML 10ML VIAL ONE (21:07)
[2018-11-21] MEDS: MELATONIN 5 MG TABLETS PO PRN (22:29)
[2018-11-21] MEDS: NAPH,MB-DB/K PH,MBDB POWDER PACKET PO SCH (22:29)
[2018-11-22] MEDS ORDERED: oxyCODONE HCL 5 MG TABLET PO ONE (01:11)
[2018-11-22] MEDS: INSULIN SLIDING SCALE (NOVOLOG) 1 VIAL SQ SCH ×4 (06:00→22:04)
[2018-11-22] MEDS: VANCOMYCIN 250 MG/5 ML ORAL SOLUTION PO SCH ×4 (06:01→23:11)
[2018-11-22] MEDS: HEPARIN NA (PORCINE) 5,000 UNITS/ML 1ML VIAL SQ SCH ×3 (06:01→21:49)
[2018-11-22] MEDS: ACETAMINOPHEN 325 MG TABLET (FP) PO PRN (06:02)
[2018-11-22] MEDS ORDERED: INSULIN (LEVEMIR) 100 UNITS/ML UNITS SQ SCH (07:00)
[2018-11-22 07:26] LABS: BASO % 0.3 % (0-2.0); EOS % 0.7 % (0-4.5); HEMATOCRIT 27.3 % (32.4-45.2); LYMPH % 28.5 % (8-40); MCH 27.3 pg (25.7-33.7); MEAN CELL VOLUME 82.7 fl (80-96); MEAN PLT VOLUME 8.1 fl (7.5-11.1); MONO % 2.9 % (3.8-10.2); NEUT % 67.6 % (42.8-82.8); PLATELET COUNT 202 K/MM3 (134-434); RDW 18.6 % (11.6-15.6); WHITE BLOOD COUNT 8.4 K/mm3 (4.0-10.0)
[2018-11-22 08:04] LABS: CALCIUM 8.1 mg/dL (8.5-10.1); CREATININE 0.6 mg/dL (0.55-1.3); MAGNESIUM 2.4 mg/dL (1.8-2.4); POTASSIUM 3.8 mmol/L (3.5-5.1)
--- NOTE | 2018-11-22 08:13 | PN ---
Progress Note, Physician - Current Medication List Current Medications: Active Medications Acetaminophen (Tylenol -) 650 mg PO Q6H PRN PRN Reason: Fever Or Pain Last Admin: 11/22/18 06:02 Dose: 650 mg Albuterol Sulfate (Ventolin 0.083% Nebulizer Soln -) 1 amp NEB Q4H PRN PRN Reason: SHORTNESS OF BREATH Heparin Sodium (Porcine) (Heparin -) 5,000 unit SQ TID [facility] Last Admin: 11/22/18 06:01 Dose: Not Given Insulin Aspart (Novolog Vial Sliding Scale -) 1 vial SQ HS [facility]; Protocol Last Admin: 11/21/18 22:34 Dose: Not Given Insulin Aspart (Novolog Vial Sliding Scale -) 1 vial SQ TIDAC [facility]; Protocol Last Admin: 11/22/18 06:00 Dose: 3 units Insulin Detemir (Levemir Vial) 10 units SQ AM [facility] Last Admin: 11/22/18 06:01 Dose: 10 units Melatonin (Melatonin) 5 mg PO HS PRN PRN Reason: INSOMNIA Last Admin: 11/21/18 22:29 Dose: 5 mg Metoclopramide HCl (Reglan Injection -) 10 mg IVPUSH Q6H PRN PRN Reason: NAUSEA AND/OR VOMITING Last Admin: 11/21/18 20:33 Dose: 10 mg Pantoprazole Sodium (Protonix Iv) 40 mg IVPUSH DAILY [facility] Potassium Phos/Sodium Phos (Phos-Nak Packet -) 1 packet PO BID [facility] Last Admin: 11/21/18 22:29 Dose: 1 packet Vancomycin HCl (Vancomycin Oral Solution) 125 mg PO Q6HPO [facility] Last Admin: 11/22/18 06:01 Dose: 125 mg - Objective Vital Signs: Vital Signs Temperature 98.2 F 11/22/18 05:05 Pulse Rate 81 11/22/18 05:05 Respiratory Rate 20 11/22/18 05:05 Blood Pressure 133/68 11/22/18 05:05 O2 Sat by Pulse Oximetry (%) 98 11/21/18 21:00 Labs: CBC, BMP 11/22/18 06:00 11/22/18 06:00 INR, PTT INR 0.94 (0.83-1.09) 11/19/18 05:30 Problem List - Problems (1) C. difficile diarrhea Code(s): A04.72 - ENTEROCOLITIS D/T CLOSTRIDIUM DIFFICILE, NOT SPCF RECUR (2) Acute respiratory failure Code(s): J96.00 - ACUTE RESPIRATORY FAILURE, UNSP W HYPOXIA OR HYPERCAPNIA (3) Hypovolemic shock Code(s): R57.1 - HYPOVOLEMIC SHOCK (4) Ketoacidosis in type I diabetes mellitus Code(s): E10.10 - TYPE 1 DIABETES MELLITUS WITH KETOACIDOSIS WITHOUT COMA (5) GIANCARLO (acute kidney injury) Code(s): N17.9 - ACUTE KIDNEY FAILURE, UNSPECIFIED (6) Abdominal pain Code(s): R10.9 - UNSPECIFIED ABDOMINAL PAIN (7) Diabetic keto-acidosis Code(s): E13.10 - OTH DIABETES MELLITUS WITH KETOACIDOSIS WITHOUT COMA (8) Lactic acid acidosis Code(s): E87.2 - ACIDOSIS (9) Septic shock Code(s): A41.9 - SEPSIS, UNSPECIFIED ORGANISM; R65.21 - SEVERE SEPSIS WITH SEPTIC SHOCK Assessment/Plan (1) Dehydration, mild 2/2 to gastroenteritis vs C. Diff -patient on vancomycin PO 125mg Hypokalemia 2/2 Diarrhea daily BMP replete K as needed Hyperglycemia with DKA 2/2 to sepsis Anion gap was closed, insulin drip was d/c patient is stable to be transferred to the floor f/u Endocrinology (Dr. Gama) consulted. - will continue patient on levamir daily - insulin sliding scale abdominal pain: - patient responds to hydromorphone - will initiate prn doses Lactic acid acidosis - resolved Hypovolemic shock - resolved resume home antihypertensives continue emperic zosyn Acute respiratory failure s/p extubation she is doing well Abdominal pain ; 2/2 c diff start vancomycin PO continue PPI leukocytosis - resolving
[2018-11-22] MEDS: NAPH,MB-DB/K PH,MBDB POWDER PACKET PO SCH ×2 (09:53→21:49)
[2018-11-22] MEDS: PANTOPRAZOLE SODIUM 40 MG VIAL IVPUSH SCH (09:53)
--- NOTE | 2018-11-22 10:59 | PN ---
Progress Note (short form) - Note Progress Note: Awake, alert C/O left hand pain Tolerating food Vital Signs Period Temp Pulse Resp BP Sys/Rapp Pulse Ox Last 24 Hr 98.2 F-99.1 F 80-93 18-26 102-143/61-93 98 PE: AOx3 HEENT: EOMI Neck: Supple, No JVD Lungs: CTA CVS: S1S2 Abd: Benign Ext: Mild swelling left hand CMP Sodium 144 mmol/L (136-145) 11/22/18 06:00 Potassium 3.8 mmol/L (3.5-5.1) 11/22/18 06:00 Chloride 112 mmol/L (98-107) H 11/22/18 06:00 Carbon Dioxide 25 mmol/L (21-32) 11/22/18 06:00 Anion Gap 7 MMOL/L (8-16) L 11/22/18 06:00 BUN 7 mg/dL (7-18) 11/22/18 06:00 Creatinine 0.6 mg/dL (0.55-1.3) 11/22/18 06:00 Est GFR (CKD-EPI)AfAm 124.05 11/22/18 06:00 Est GFR (CKD-EPI)NonAf 107.03 11/22/18 06:00 POC Glucometer 280 UNITS (80-120) 11/22/18 05:48 Random Glucose 287 mg/dL (74-106) H 11/22/18 06:00 Lactic Acid 2.6 mmol/L (0.4-2.0) H* 11/19/18 16:00 Calcium 8.1 mg/dL (8.5-10.1) L 11/22/18 06:00 Phosphorus 4.0 mg/dL (2.5-4.9) 11/22/18 06:00 Magnesium 2.4 mg/dL (1.8-2.4) 11/22/18 06:00 Total Bilirubin 0.3 mg/dL (0.2-1) 11/20/18 19:10 AST 18 U/L (15-37) 11/20/18 19:10 ALT 20 U/L (13-61) 11/20/18 19:10 Alkaline Phosphatase 111 U/L (45-117) 11/20/18 19:10 Creatine Kinase 55 U/L (26-192) 11/18/18 13:24 Total Protein 4.8 g/dl (6.4-8.2) L 11/20/18 19:10 Albumin 2.2 g/dl (3.4-5.0) L 11/20/18 19:10 Current Medications Generic Name Dose Route Start Last Admin Trade Name Freq PRN Reason Stop Dose Admin Acetaminophen 650 mg 11/21/18 14:55 11/22/18 06:02 Tylenol - PO 650 mg Q6H PRN Administration Fever Or Pain Albuterol Sulfate 1 amp 11/21/18 14:55 Ventolin 0.083% Nebulizer Soln - NEB Q4H PRN SHORTNESS OF BREATH Heparin Sodium (Porcine) 5,000 unit 11/21/18 22:00 11/22/18 06:01 Heparin - SQ Not Given TID [facility] Insulin Aspart 1 vial 11/21/18 22:00 11/21/18 22:34 Novolog Vial Sliding Scale - SQ Not Given HS [facility] Protocol Insulin Aspart 1 vial 11/21/18 16:30 11/22/18 06:00 Novolog Vial Sliding Scale - SQ 3 units TIDAC [facility] Administration Protocol Insulin Detemir 10 units 11/22/18 07:00 11/22/18 06:01 Levemir Vial SQ 10 units AM [facility] Administration Melatonin 5 mg 11/21/18 20:41 11/21/18 22:29 Melatonin PO 5 mg HS PRN Administration INSOMNIA Metoclopramide HCl 10 mg 11/21/18 14:55 11/21/18 20:33 Reglan Injection - IVPUSH 10 mg Q6H PRN Administration NAUSEA AND/OR VOMITING Pantoprazole Sodium 40 mg 11/22/18 10:00 11/22/18 09:53 Protonix Iv IVPUSH 40 mg DAILY [facility] Administration Potassium Phos/Sodium Phos 1 packet 11/21/18 22:00 11/22/18 09:53 Phos-Nak Packet - PO 1 packet BID [facility] Administration Vancomycin HCl 125 mg 11/21/18 18:00 11/22/18 06:01 Vancomycin Oral Solution PO 125 mg Q6HPO [facility] Administration AP: DKA resolved, No further episode of hypoglycemia T1DM Electrolyte Imbalance ?Sepsis Continue Levemir 10 units daily BGM Q ACHS and 3 AM NOvolog SS Q ACHS Tolerated diet i Off D% IV hydration as necessary electrolyte replacement as necessary Will f/u
[2018-11-22] MEDS: HYDROmorphone HCl 2 MG/ML VIAL IVPUSH PRN ×2 (12:04→21:49)
[2018-11-22] MEDS: LACTATED RINGERS SOLUTION 1,000 ML/1,000 ML INFUS.BAG IV SCH (12:04)
--- NOTE | 2018-11-22 13:31 | PN ---
Progress Note, Physician History of Present Illness: Events noted. Pt was started on Vancomycin PO. Has c/o abd discomfort but no diarrhea, normal wbc. No BMs so far today. Afebrile. - Current Medication List Current Medications: Active Medications Acetaminophen (Tylenol -) 650 mg PO Q6H PRN PRN Reason: Fever Or Pain Last Admin: 11/22/18 06:02 Dose: 650 mg Albuterol Sulfate (Ventolin 0.083% Nebulizer Soln -) 1 amp NEB Q4H PRN PRN Reason: SHORTNESS OF BREATH Heparin Sodium (Porcine) (Heparin -) 5,000 unit SQ TID [facility] Last Admin: 11/22/18 06:01 Dose: Not Given Hydromorphone HCl (Dilaudid Vial -) 2 mg IVPUSH Q8H PRN PRN Reason: PAIN LEVEL 6-10 Last Admin: 11/22/18 12:04 Dose: 2 mg Lactated Ringer's (Lactated Ringers Solution) 1,000 ml in 1,000 mls @ 125 mls/ hr IV ASDIR [facility] Last Admin: 11/22/18 12:04 Dose: 125 mls/hr Insulin Aspart (Novolog Vial Sliding Scale -) 1 vial SQ HS [facility]; Protocol Last Admin: 11/21/18 22:34 Dose: Not Given Insulin Aspart (Novolog Vial Sliding Scale -) 1 vial SQ TIDAC [facility]; Protocol Last Admin: 11/22/18 11:56 Dose: Not Given Insulin Detemir (Levemir Vial) 12 units SQ AM [facility] Melatonin (Melatonin) 5 mg PO HS PRN PRN Reason: INSOMNIA Last Admin: 11/21/18 22:29 Dose: 5 mg Metoclopramide HCl (Reglan Injection -) 10 mg IVPUSH Q6H PRN PRN Reason: NAUSEA AND/OR VOMITING Last Admin: 11/21/18 20:33 Dose: 10 mg Pantoprazole Sodium (Protonix Iv) 40 mg IVPUSH DAILY [facility] Last Admin: 11/22/18 09:53 Dose: 40 mg Potassium Phos/Sodium Phos (Phos-Nak Packet -) 1 packet PO BID [facility] Last Admin: 11/22/18 09:53 Dose: 1 packet Vancomycin HCl (Vancomycin Oral Solution) 125 mg PO Q6HPO [facility] Last Admin: 11/22/18 12:39 Dose: 125 mg - Objective Vital Signs: Vital Signs Temperature 98.2 F 11/22/18 09:00 Pulse Rate 80 11/22/18 09:00 Respiratory Rate 18 11/22/18 09:00 Blood Pressure 109/77 11/22/18 09:00 O2 Sat by Pulse Oximetry (%) 98 11/21/18 21:00 Constitutional: Yes: No Distress, Calm Cardiovascular: Yes: Regular Rate and Rhythm Respiratory: Yes: Regular Gastrointestinal: Yes: Normal Bowel Sounds, Soft, Tenderness (no guarding/no distension) Neurological: Yes: Alert, Oriented Labs: CBC, BMP 11/22/18 06:00 11/22/18 06:00 INR, PTT INR 0.94 (0.83-1.09) 11/19/18 05:30 CDT negative Cdiff Ag pos Microbiology 11/18/18 17:00 Blood - Peripheral Venous Blood Culture - Preliminary NO GROWTH OBTAINED AFTER 72 HOURS, INCUBATION TO CONTINUE FOR 2 DAYS. 11/18/18 17:00 Blood - Peripheral Venous Blood Culture - Preliminary NO GROWTH OBTAINED AFTER 72 HOURS, INCUBATION TO CONTINUE FOR 2 DAYS. 11/20/18 10:30 Stool Clostridioides difficile Antigen - Final 11/20/18 10:30 Stool Clostridioides difficile Toxin Assay - Final 11/18/18 13:24 Urine - Urine - Catheterized Urine Culture - Final Problem List - Problems (1) Acute respiratory failure Code(s): J96.00 - ACUTE RESPIRATORY FAILURE, UNSP W HYPOXIA OR HYPERCAPNIA (2) Ketoacidosis in type I diabetes mellitus Code(s): E10.10 - TYPE 1 DIABETES MELLITUS WITH KETOACIDOSIS WITHOUT COMA (3) GIANCARLO (acute kidney injury) Code(s): N17.9 - ACUTE KIDNEY FAILURE, UNSPECIFIED (4) Abdominal pain Code(s): R10.9 - UNSPECIFIED ABDOMINAL PAIN (5) DKA (diabetic ketoacidoses) Code(s): E13.10 - OTH DIABETES MELLITUS WITH KETOACIDOSIS WITHOUT COMA Qualifiers: Diabetes mellitus type: other specified (including MARITO) Diabetes mellitus complication detail: without coma Qualified Code(s): E13.10 - Other specified diabetes mellitus with ketoacidosis without coma (6) Cerebrovascular accident (CVA) Code(s): I63.9 - CEREBRAL INFARCTION, UNSPECIFIED Qualifiers: CVA mechanism: unspecified Qualified Code(s): I63.9 - Cerebral infarction, unspecified (7) Diabetes mellitus, insulin dependent (IDDM), uncontrolled Code(s): E10.65 - TYPE 1 DIABETES MELLITUS WITH HYPERGLYCEMIA (8) Leukocytosis Code(s): D72.829 - ELEVATED WHITE BLOOD CELL COUNT, UNSPECIFIED Assessment/Plan Fever Leukocytosis - resolved Diarrhea - C.diff Ag +/ toxin negative DKA Respiratory failure s/p extubation IDDM Hx of CVA HTN -- pt was started on po Vancomycin, no diarrhea, no leukocytosis -- continue monitor vitals
[2018-11-22 15:52] VITALS: BMI 20.8
[2018-11-22] MEDS ORDERED: INSULIN (NOVOLOG) ASPART 100 UNITS/ML 10ML VIAL ONE (21:19)
[2018-11-22] MEDS: MELATONIN 5 MG TABLETS PO PRN (21:49)
[2018-11-23] MEDS: HYDROmorphone HCl 2 MG/ML VIAL IVPUSH PRN ×3 (05:58→22:21)
[2018-11-23] MEDS: INSULIN (LEVEMIR) 100 UNITS/ML UNITS SQ SCH (05:59)
[2018-11-23] MEDS: LACTATED RINGERS SOLUTION 1,000 ML/1,000 ML INFUS.BAG IV SCH ×2 (05:59→14:33)
[2018-11-23] MEDS: HEPARIN NA (PORCINE) 5,000 UNITS/ML 1ML VIAL SQ SCH ×3 (05:59→21:52)
[2018-11-23] MEDS: VANCOMYCIN 250 MG/5 ML ORAL SOLUTION PO SCH ×4 (06:00→23:04)
[2018-11-23] MEDS: INSULIN SLIDING SCALE (NOVOLOG) 1 VIAL SQ SCH ×4 (06:00→21:52)
[2018-11-23 08:01] LABS: ALBUMIN 2.3 g/dl (3.4-5.0); BILIRUBIN,TOTAL 0.6 mg/dL (0.2-1); CALCIUM 8.2 mg/dL (8.5-10.1); CREATININE 0.6 mg/dL (0.55-1.3); MAGNESIUM 2.1 mg/dL (1.8-2.4); PHOSPHOROUS 3.9 mg/dL (2.5-4.9); TOT PROT 5.3 g/dl (6.4-8.2)
[2018-11-23 08:07] LABS: BASO % 0.2 % (0-2.0); HEMATOCRIT 26.4 % (32.4-45.2); HEMOGLOBIN 8.6 GM/dL (10.7-15.3); LYMPH % 25.9 % (8-40); MCH 27.1 pg (25.7-33.7); MCHC 32.6 g/dl (32.0-36.0); MEAN CELL VOLUME 83.3 fl (80-96); MEAN PLT VOLUME 8.1 fl (7.5-11.1); MONO % 8.4 % (3.8-10.2); NEUT % 64.5 % (42.8-82.8); PLATELET COUNT 205 K/MM3 (134-434); RBC 3.17 M/mm3 (3.60-5.2); RDW 18.4 % (11.6-15.6); WHITE BLOOD COUNT 6.7 K/mm3 (4.0-10.0)
--- NOTE | 2018-11-23 08:14 | PN ---
Progress Note, Physician Chief Complaint: Patient is a 48 year old female with past medical history of HTN, CVA (left sided hemiparesis), HLD, IDDM, DKA, Dysphagia, Gastroparesis, esophageal stricture (EGD 02/14), presented to [place] ED after being found unresponsive by the neighbor. Patient was found to be in DKA. - Current Medication List Current Medications: Active Medications Acetaminophen (Tylenol -) 650 mg PO Q6H PRN PRN Reason: Fever Or Pain Last Admin: 11/22/18 06:02 Dose: 650 mg Albuterol Sulfate (Ventolin 0.083% Nebulizer Soln -) 1 amp NEB Q4H PRN PRN Reason: SHORTNESS OF BREATH Heparin Sodium (Porcine) (Heparin -) 5,000 unit SQ TID [facility] Last Admin: 11/23/18 05:59 Dose: 5,000 unit Hydromorphone HCl (Dilaudid Vial -) 2 mg IVPUSH Q8H PRN PRN Reason: PAIN LEVEL 6-10 Last Admin: 11/23/18 05:58 Dose: 2 mg Lactated Ringer's (Lactated Ringers Solution) 1,000 ml in 1,000 mls @ 125 mls/ hr IV ASDIR [facility] Last Admin: 11/23/18 05:59 Dose: 125 mls/hr Insulin Aspart (Novolog Vial Sliding Scale -) 1 vial SQ HS [facility]; Protocol Last Admin: 11/22/18 22:04 Dose: Not Given Insulin Aspart (Novolog Vial Sliding Scale -) 1 vial SQ TIDAC [facility]; Protocol Last Admin: 11/23/18 06:00 Dose: 6 units Insulin Detemir (Levemir Vial) 12 units SQ AM [facility] Last Admin: 11/23/18 05:59 Dose: 12 units Melatonin (Melatonin) 5 mg PO HS PRN PRN Reason: INSOMNIA Last Admin: 11/22/18 21:49 Dose: 5 mg Metoclopramide HCl (Reglan Injection -) 10 mg IVPUSH Q6H PRN PRN Reason: NAUSEA AND/OR VOMITING Last Admin: 11/21/18 20:33 Dose: 10 mg Pantoprazole Sodium (Protonix Iv) 40 mg IVPUSH DAILY [facility] Last Admin: 11/22/18 09:53 Dose: 40 mg Potassium Phos/Sodium Phos (Phos-Nak Packet -) 1 packet PO BID [facility] Last Admin: 11/22/18 21:49 Dose: 1 packet Vancomycin HCl (Vancomycin Oral Solution) 125 mg PO Q6HPO [facility] Last Admin: 11/23/18 06:00 Dose: 125 mg - Objective Vital Signs: Vital Signs Temperature 98.0 F 11/23/18 06:00 Pulse Rate 92 H 11/23/18 06:00 Respiratory Rate 20 11/23/18 06:00 Blood Pressure 121/54 L 11/23/18 06:00 O2 Sat by Pulse Oximetry (%) 97 11/22/18 21:00 Constitutional: Yes: No Distress, Calm, Thin Eyes: Yes: WNL, Conjunctiva Clear, EOM Intact HENT: Yes: WNL, Atraumatic, Normocephalic Neck: Yes: WNL, Supple, Trachea Midline Cardiovascular: Yes: WNL, Regular Rate and Rhythm, Bradycardia Respiratory: Yes: WNL, Regular, CTA Bilaterally Gastrointestinal: Yes: WNL, Normal Bowel Sounds Genitourinary: Yes: WNL Musculoskeletal: Yes: Muscle Pain (to left shoulder. Left hand edematous. Decreased ROM, pain upon abduction & adduction), Other Extremities: Yes: WNL Edema: Yes Edema: LUE: 2+ Peripheral Pulses WNL: Yes Integumentary: Yes: WNL Neurological: Yes: WNL, Alert, Oriented ...Motor Strength: WNL Psychiatric: Yes: WNL, Alert, Oriented Labs: CBC, BMP 11/23/18 06:00 INR, PTT INR 0.94 (0.83-1.09) 11/19/18 05:30 Problem List - Problems (1) Dehydration, mild Assessment/Plan: tolerating diet, IVF dc'd SPL consult requested-patient states shes had dysphagia x 1 year instucted patient to avoid thin liquids, no straws, upright when eat/drinking. Code(s): E86.0 - DEHYDRATION (2) Hypokalemia Assessment/Plan: daily BMP replete K as needed Code(s): E87.6 - HYPOKALEMIA (3) Hyperglycemia, unspecified Assessment/Plan: Endocrinology consulted and appreciated input Patient told me that she was on an insulin pump but it broke and insurance would not cover another pump. Will speak with SW about another pump on DC continue monitoring FS with novolog insulin coverage Code(s): R73.9 - HYPERGLYCEMIA, UNSPECIFIED (4) Lactic acid acidosis Assessment/Plan: resolved Code(s): E87.2 - ACIDOSIS (5) Hypovolemic shock Assessment/Plan: Hypovolemic shock on initial presenattion to ED, improved with IVF boluses Now resolved Code(s): R57.1 - HYPOVOLEMIC SHOCK (6) Acute respiratory failure Assessment/Plan: Acute respiratory failure resolved continue to monitor O2 sats Code(s): J96.00 - ACUTE RESPIRATORY FAILURE, UNSP W HYPOXIA OR HYPERCAPNIA (7) Abdominal pain Assessment/Plan: resolved Code(s): R10.9 - UNSPECIFIED ABDOMINAL PAIN (8) C. difficile diarrhea Assessment/Plan: of PO vanco ID following and appreciate input Code(s): A04.72 - ENTEROCOLITIS D/T CLOSTRIDIUM DIFFICILE, NOT SPCF RECUR (9) Shoulder pain, left Assessment/Plan: history of left clavicular fracture 02/14, still complain of pain repeat clavicle xray sling ordered while patient is awake elevate on 2 pillows while in bed ortho consult if xray abnormal Code(s): M25.512 - PAIN IN LEFT SHOULDER Impression/Plan Impression/Plan: FEN tolerating diet, CREATIVE DIRECTOR requested monitor BMP Prophylaxis -DVT: Heparin 5000unit sq tid -GI: Protonix 40mg daily Dispo -full code -discharge planning Visit type - Emergency Visit Emergency Visit: Yes ED Registration Date: 11/18/18 Care time: The patient presented to the Emergency Department on the above date and was hospitalized for further evaluation of their emergent condition. - New Patient This patient is new to me today: No - Critical Care Critical Care patient: No - Discharge Referral Referred to [facility] Med P.C.: No
[2018-11-23] MEDS ORDERED: PT OWN MED DRAWER 7, Y5N ONE (08:45)
[2018-11-23] MEDS: PANTOPRAZOLE SODIUM 40 MG VIAL IVPUSH SCH (10:56)
[2018-11-23] MEDS: NAPH,MB-DB/K PH,MBDB POWDER PACKET PO SCH ×2 (10:56→21:53)
--- NOTE | 2018-11-23 11:35 | PN ---
Progress Note (short form) - Note Progress Note: Feels better Occ abd pain No N/V Tolerating food Vital Signs Period Temp Pulse Resp BP Sys/Rapp Pulse Ox Last 24 Hr 98.0 F-98.7 F 81-92 17-20 112-130/54-84 97-97 PE: AOx3 HEENT: EOMI Neck: Supple, No JVD Lungs: CTA CVS: S1S2 Abd: Benign Ext: Mild swelling left hand CMP Sodium 138 mmol/L (136-145) 11/23/18 06:00 Potassium 4.0 mmol/L (3.5-5.1) 11/23/18 06:00 Chloride 105 mmol/L (98-107) 11/23/18 06:00 Carbon Dioxide 23 mmol/L (21-32) 11/23/18 06:00 Anion Gap 10 MMOL/L (8-16) 11/23/18 06:00 BUN 7 mg/dL (7-18) 11/23/18 06:00 Creatinine 0.6 mg/dL (0.55-1.3) 11/23/18 06:00 Est GFR (CKD-EPI)AfAm 124.05 11/23/18 06:00 Est GFR (CKD-EPI)NonAf 107.03 11/23/18 06:00 POC Glucometer 112 UNITS (80-120) 11/23/18 10:57 Random Glucose 374 mg/dL (74-106) H* 11/23/18 06:00 Lactic Acid 2.6 mmol/L (0.4-2.0) H* 11/19/18 16:00 Calcium 8.2 mg/dL (8.5-10.1) L 11/23/18 06:00 Phosphorus 3.9 mg/dL (2.5-4.9) 11/23/18 06:00 Magnesium 2.1 mg/dL (1.8-2.4) 11/23/18 06:00 Total Bilirubin 0.6 mg/dL (0.2-1) 11/23/18 06:00 AST 7 U/L (15-37) L 11/23/18 06:00 ALT 12 U/L (13-61) L 11/23/18 06:00 Alkaline Phosphatase 144 U/L (45-117) H 11/23/18 06:00 Creatine Kinase 55 U/L (26-192) 11/18/18 13:24 Total Protein 5.3 g/dl (6.4-8.2) L 11/23/18 06:00 Albumin 2.3 g/dl (3.4-5.0) L 11/23/18 06:00 Current Medications Generic Name Dose Route Start Last Admin Trade Name Freq PRN Reason Stop Dose Admin Acetaminophen 650 mg 11/21/18 14:55 11/22/18 06:02 Tylenol - PO 650 mg Q6H PRN Administration Fever Or Pain Albuterol Sulfate 1 amp 11/21/18 14:55 Ventolin 0.083% Nebulizer Soln - NEB Q4H PRN SHORTNESS OF BREATH Heparin Sodium (Porcine) 5,000 unit 11/21/18 22:00 11/23/18 05:59 Heparin - SQ 5,000 unit TID [facility] Administration Hydromorphone HCl 2 mg 11/22/18 11:27 11/23/18 05:58 Dilaudid Vial - IVPUSH 2 mg Q8H PRN Administration PAIN LEVEL 6-10 Lactated Ringer's 1,000 ml in 1,000 mls @ 125 mls/hr 11/22/18 11:45 11/23/18 05:59 Lactated Ringers Solution IV 125 mls/hr ASDIR [facility] Administration Insulin Aspart 1 vial 11/21/18 22:00 11/22/18 22:04 Novolog Vial Sliding Scale - SQ Not Given HS [facility] Protocol Insulin Aspart 1 vial 11/21/18 16:30 11/23/18 10:59 Novolog Vial Sliding Scale - SQ Not Given TIDAC [facility] Protocol Insulin Detemir 12 units 11/22/18 11:29 11/23/18 05:59 Levemir Vial SQ 12 units AM [facility] Administration Melatonin 5 mg 11/21/18 20:41 11/22/18 21:49 Melatonin PO 5 mg HS PRN Administration INSOMNIA Metoclopramide HCl 10 mg 11/21/18 14:55 11/21/18 20:33 Reglan Injection - IVPUSH 10 mg Q6H PRN Administration NAUSEA AND/OR VOMITING Pantoprazole Sodium 40 mg 11/22/18 10:00 11/23/18 10:56 Protonix Iv IVPUSH 40 mg DAILY [facility] Administration Potassium Phos/Sodium Phos 1 packet 11/21/18 22:00 11/23/18 10:56 Phos-Nak Packet - PO 1 packet BID [facility] Administration Vancomycin HCl 125 mg 11/21/18 18:00 11/23/18 11:04 Vancomycin Oral Solution PO 125 mg Q6HPO [facility] Administration AP: DKA resolved, No further episode of hypoglycemia T1DM Electrolyte Imbalance Abd pain On Levemir 12 units daily Pt now says she was not on the Insulin pump at home and was taking Levemir 12 units BID BGM Q ACHS and 3 AM NOvolog SS Q ACHS Tolerated diet i Off D% IV hydration as necessary electrolyte replacement as necessary Will f/u
--- NOTE | 2018-11-23 11:48 | PN ---
Progress Note, Physician History of Present Illness: patient stable no new issues says abd pain clinically comfortable - Current Medication List Current Medications: Active Medications Acetaminophen (Tylenol -) 650 mg PO Q6H PRN PRN Reason: Fever Or Pain Last Admin: 11/22/18 06:02 Dose: 650 mg Albuterol Sulfate (Ventolin 0.083% Nebulizer Soln -) 1 amp NEB Q4H PRN PRN Reason: SHORTNESS OF BREATH Heparin Sodium (Porcine) (Heparin -) 5,000 unit SQ TID [facility] Last Admin: 11/23/18 05:59 Dose: 5,000 unit Hydromorphone HCl (Dilaudid Vial -) 2 mg IVPUSH Q8H PRN PRN Reason: PAIN LEVEL 6-10 Last Admin: 11/23/18 05:58 Dose: 2 mg Lactated Ringer's (Lactated Ringers Solution) 1,000 ml in 1,000 mls @ 125 mls/ hr IV ASDIR [facility] Last Admin: 11/23/18 05:59 Dose: 125 mls/hr Insulin Aspart (Novolog Vial Sliding Scale -) 1 vial SQ HS [facility]; Protocol Last Admin: 11/22/18 22:04 Dose: Not Given Insulin Aspart (Novolog Vial Sliding Scale -) 1 vial SQ TIDAC [facility]; Protocol Last Admin: 11/23/18 10:59 Dose: Not Given Insulin Detemir (Levemir Vial) 12 units SQ AM [facility] Last Admin: 11/23/18 05:59 Dose: 12 units Melatonin (Melatonin) 5 mg PO HS PRN PRN Reason: INSOMNIA Last Admin: 11/22/18 21:49 Dose: 5 mg Metoclopramide HCl (Reglan Injection -) 10 mg IVPUSH Q6H PRN PRN Reason: NAUSEA AND/OR VOMITING Last Admin: 11/21/18 20:33 Dose: 10 mg Pantoprazole Sodium (Protonix Iv) 40 mg IVPUSH DAILY [facility] Last Admin: 11/23/18 10:56 Dose: 40 mg Potassium Phos/Sodium Phos (Phos-Nak Packet -) 1 packet PO BID [facility] Last Admin: 11/23/18 10:56 Dose: 1 packet Vancomycin HCl (Vancomycin Oral Solution) 125 mg PO Q6HPO [facility] Last Admin: 11/23/18 11:04 Dose: 125 mg - Objective Vital Signs: Vital Signs Temperature 98.3 F 05/27/19 10:00 Pulse Rate 81 11/23/18 10:00 Respiratory Rate 17 11/23/18 10:00 Blood Pressure 112/66 11/23/18 10:00 O2 Sat by Pulse Oximetry (%) 97 11/23/18 09:00 Constitutional: Yes: No Distress, Calm Cardiovascular: Yes: Regular Rate and Rhythm Respiratory: Yes: Regular, CTA Bilaterally Gastrointestinal: Yes: Normal Bowel Sounds, Soft Musculoskeletal: Yes: WNL Extremities: Yes: WNL Neurological: Yes: Alert, Oriented Psychiatric: Yes: Alert, Oriented Labs: CBC, BMP 11/23/18 06:00 11/23/18 06:00 INR, PTT INR 0.94 (0.83-1.09) 11/19/18 05:30 Assessment/Plan Problem List - Problems (1) Acute respiratory failure Code(s): J96.00 - ACUTE RESPIRATORY FAILURE, UNSP W HYPOXIA OR HYPERCAPNIA (2) Ketoacidosis in type I diabetes mellitus Code(s): E10.10 - TYPE 1 DIABETES MELLITUS WITH KETOACIDOSIS WITHOUT COMA (3) GIANCARLO (acute kidney injury) Code(s): N17.9 - ACUTE KIDNEY FAILURE, UNSPECIFIED (4) Abdominal pain Code(s): R10.9 - UNSPECIFIED ABDOMINAL PAIN (5) DKA (diabetic ketoacidoses) Code(s): E13.10 - OTH DIABETES MELLITUS WITH KETOACIDOSIS WITHOUT COMA Qualifiers: Diabetes mellitus type: other specified (including MARITO) Diabetes mellitus complication detail: without coma Qualified Code(s): E13.10 - Other specified diabetes mellitus with ketoacidosis without coma (6) Cerebrovascular accident (CVA) Code(s): I63.9 - CEREBRAL INFARCTION, UNSPECIFIED Qualifiers: CVA mechanism: unspecified Qualified Code(s): I63.9 - Cerebral infarction, unspecified (7) Diabetes mellitus, insulin dependent (IDDM), uncontrolled Code(s): E10.65 - TYPE 1 DIABETES MELLITUS WITH HYPERGLYCEMIA (8) Leukocytosis Code(s): D72.829 - ELEVATED WHITE BLOOD CELL COUNT, UNSPECIFIED Assessment/Plan Fever Leukocytosis - resolved Diarrhea - C.diff Ag +/ toxin negative DKA Respiratory failure s/p extubation IDDM Hx of CVA HTN -- pt was started on po Vancomycin, no diarrhea, no leukocytosis -- continue monitor vitals
[2018-11-23] MEDS ORDERED: INSULIN (NOVOLOG) ASPART 100 UNITS/ML 10ML VIAL ONE (20:38)
[2018-11-23] MEDS: MELATONIN 5 MG TABLETS PO PRN (23:04)
[2018-11-24] MEDS: HYDROmorphone HCl 2 MG/ML VIAL IVPUSH PRN ×3 (06:23→23:11)
[2018-11-24] MEDS: INSULIN (LEVEMIR) 100 UNITS/ML UNITS SQ SCH (06:50)
[2018-11-24] MEDS: INSULIN SLIDING SCALE (NOVOLOG) 1 VIAL SQ SCH ×4 (06:51→22:21)
[2018-11-24] MEDS: HEPARIN NA (PORCINE) 5,000 UNITS/ML 1ML VIAL SQ SCH ×3 (06:51→22:21)
[2018-11-24] MEDS: VANCOMYCIN 250 MG/5 ML ORAL SOLUTION PO SCH ×4 (06:51→23:11)
[2018-11-24 07:28] LABS: BASO % 0.1 % (0-2.0); EOS % 0.7 % (0-4.5); HEMATOCRIT 23.9 % (32.4-45.2); HEMOGLOBIN 7.8 GM/dL (10.7-15.3); LYMPH % 31.3 % (8-40); MCH 27.3 pg (25.7-33.7); MCHC 32.8 g/dl (32.0-36.0); MEAN CELL VOLUME 83.1 fl (80-96); NEUT % 59.9 % (42.8-82.8); PLATELET COUNT 252 K/MM3 (134-434); RBC 2.88 M/mm3 (3.60-5.2); RDW 18.5 % (11.6-15.6); WHITE BLOOD COUNT 7.3 K/mm3 (4.0-10.0)
[2018-11-24 08:08] LABS: ALBUMIN 2.1 g/dl (3.4-5.0); BILIRUBIN,TOTAL 0.2 mg/dL (0.2-1); CALCIUM 8.4 mg/dL (8.5-10.1); CREATININE 0.7 mg/dL (0.55-1.3); MAGNESIUM 2.1 mg/dL (1.8-2.4); POTASSIUM 4.2 mmol/L (3.5-5.1); TOT PROT 5.1 g/dl (6.4-8.2)
[2018-11-24] MEDS ORDERED: Insulin (LOG) Aspart 100 UNITS/ML VIAL SQ ONE (08:23)
--- NOTE | 2018-11-24 08:53 | PN ---
Progress Note (short form) - Note Progress Note: Feels better Fluctuating blood sugar Denies snacking after dinner Vital Signs Period Temp Pulse Resp BP Sys/Rapp Pulse Ox Last 24 Hr 98.1 F-99 F 86-90 18-18 102-145/62-86 97-98 PE: AOx3 HEENT: EOMI Neck: Supple, No JVD Lungs: CTA CVS: S1S2 Abd: Benign Ext: Mild swelling left hand CMP Sodium 139 mmol/L (136-145) 11/24/18 06:00 Potassium 4.2 mmol/L (3.5-5.1) 11/24/18 06:00 Chloride 104 mmol/L (98-107) 11/24/18 06:00 Carbon Dioxide 25 mmol/L (21-32) 11/24/18 06:00 Anion Gap 10 MMOL/L (8-16) 11/24/18 06:00 BUN 8 mg/dL (7-18) 11/24/18 06:00 Creatinine 0.7 mg/dL (0.55-1.3) 11/24/18 06:00 Est GFR (CKD-EPI)AfAm 117.91 11/24/18 06:00 Est GFR (CKD-EPI)NonAf 101.74 11/24/18 06:00 POC Glucometer 70 UNITS (80-120) 11/24/18 11:47 Random Glucose 403 mg/dL (74-106) H* 11/24/18 06:00 Lactic Acid 2.6 mmol/L (0.4-2.0) H* 11/19/18 16:00 Calcium 8.4 mg/dL (8.5-10.1) L 11/24/18 06:00 Phosphorus 3.9 mg/dL (2.5-4.9) 11/23/18 06:00 Magnesium 2.1 mg/dL (1.8-2.4) 11/24/18 06:00 Total Bilirubin 0.2 mg/dL (0.2-1) 11/24/18 06:00 AST 7 U/L (15-37) L 11/24/18 06:00 ALT 10 U/L (13-61) L 11/24/18 06:00 Alkaline Phosphatase 138 U/L (45-117) H 11/24/18 06:00 Creatine Kinase 55 U/L (26-192) 11/18/18 13:24 Total Protein 5.1 g/dl (6.4-8.2) L 11/24/18 06:00 Albumin 2.1 g/dl (3.4-5.0) L 11/24/18 06:00 Current Medications Generic Name Dose Route Start Last Admin Trade Name Freq PRN Reason Stop Dose Admin Acetaminophen 650 mg 11/21/18 14:55 11/22/18 06:02 Tylenol - PO 650 mg Q6H PRN Administration Fever Or Pain Albuterol Sulfate 1 amp 11/21/18 14:55 Ventolin 0.083% Nebulizer Soln - NEB Q4H PRN SHORTNESS OF BREATH Heparin Sodium (Porcine) 5,000 unit 11/21/18 22:00 11/24/18 13:36 Heparin - SQ 5,000 unit TID [facility] Administration Hydromorphone HCl 2 mg 11/22/18 11:27 11/24/18 06:23 Dilaudid Vial - IVPUSH 2 mg Q8H PRN Administration PAIN LEVEL 6-10 Insulin Aspart 1 vial 11/21/18 16:30 11/24/18 12:09 Novolog Vial Sliding Scale - SQ Not Given TIDAC [facility] Protocol Insulin Aspart 1 vial 11/24/18 08:52 Novolog Vial Sliding Scale - SQ HS [facility] Protocol Insulin Detemir 12 units 11/22/18 11:29 11/24/18 06:50 Levemir Vial SQ 12 units AM [facility] Administration Melatonin 5 mg 11/21/18 20:41 11/23/18 23:04 Melatonin PO 5 mg HS PRN Administration INSOMNIA Metoclopramide HCl 10 mg 11/21/18 14:55 11/21/18 20:33 Reglan Injection - IVPUSH 10 mg Q6H PRN Administration NAUSEA AND/OR VOMITING Pantoprazole Sodium 40 mg 11/22/18 10:00 11/24/18 09:49 Protonix Iv IVPUSH 40 mg DAILY [facility] Administration Potassium Phos/Sodium Phos 1 packet 11/21/18 22:00 11/24/18 09:49 Phos-Nak Packet - PO 1 packet BID [facility] Administration Vancomycin HCl 125 mg 11/21/18 18:00 11/24/18 13:37 Vancomycin Oral Solution PO 125 mg Q6HPO [facility] Administration AP: DKA resolved, No further episode of hypoglycemia T1DM: fluctuating blood sugar Electrolyte Imbalance Abd pain On Levemir 12 units daily Pt now says she was not on the Insulin pump at home and was taking Levemir 12 units BID BGM Q ACHS and 3 AM NOvolog SS Q ACHS Tolerated diet Will f/u
[2018-11-24] MEDS: NAPH,MB-DB/K PH,MBDB POWDER PACKET PO SCH ×2 (09:49→22:22)
[2018-11-24] MEDS: PANTOPRAZOLE SODIUM 40 MG VIAL IVPUSH SCH (09:49)
--- NOTE | 2018-11-24 11:45 | HP ---
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: CVA (right MCA), Migraine Gastrointestinal: Yes: Other (Gastroparesis) ...LMP: 04/14/13 Musculoskeletal: Yes: Chronic low back pain Endocrine: Yes: Diabetes Mellitus - Past Surgical History Past Surgical History: Yes: Cholecystectomy - Smoking History Smoking history: Unknown if ever smoked Have you smoked in the past 12 months: No Aproximately how many cigarettes per day: 8 - Alcohol/Substance Use Hx Alcohol Use: No History of Substance Use: reports: None - Social History ADL: Independent History of Recent Travel: No Home Medications - Allergies Allergies/Adverse Reactions: Allergies Allergy/AdvReac Type Severity Reaction Status Date / Time No Known Allergies Allergy Verified 06/16/18 22:40 - Home Medications Home Medications: Ambulatory Orders Insulin Detemir [Levemir Flextouch] 25 unit SQ DAILY #3 insuln.pen 06/20/18 Amoxicillin/Potassium Clav [Augmentin 875-125 Tablet] 1 each PO BID #14 tablet 08/13/18 Aspirin 81 mg PO DAILY #30 tab.chew 08/13/18 Aspirin [ASA -] 81 mg PO DAILY tab.chew 08/13/18 Atorvastatin Ca [Lipitor] 40 mg PO HS #30 tablet 08/13/18 Family Disease History - Family Disease History Family Disease History: Heart Disease: Father (cad) Physical Examination Vital Signs: Vital Signs Temperature 98.1 F 11/24/18 09:00 Pulse Rate 89 11/24/18 09:00 Respiratory Rate 18 11/24/18 09:00 Blood Pressure 126/62 11/24/18 09:00 O2 Sat by Pulse Oximetry (%) 98 11/24/18 09:00 Labs: CBC, BMP 11/24/18 06:00 11/24/18 06:00
--- NOTE | 2018-11-24 12:16 | PN ---
Progress Note, Physician History of Present Illness: stable no issues eating - Current Medication List Current Medications: Active Medications Acetaminophen (Tylenol -) 650 mg PO Q6H PRN PRN Reason: Fever Or Pain Last Admin: 11/22/18 06:02 Dose: 650 mg Albuterol Sulfate (Ventolin 0.083% Nebulizer Soln -) 1 amp NEB Q4H PRN PRN Reason: SHORTNESS OF BREATH Heparin Sodium (Porcine) (Heparin -) 5,000 unit SQ TID [facility] Last Admin: 11/24/18 06:51 Dose: 5,000 unit Hydromorphone HCl (Dilaudid Vial -) 2 mg IVPUSH Q8H PRN PRN Reason: PAIN LEVEL 6-10 Last Admin: 11/24/18 06:23 Dose: 2 mg Insulin Aspart (Novolog Vial Sliding Scale -) 1 vial SQ TIDAC [facility]; Protocol Last Admin: 11/24/18 12:09 Dose: Not Given Insulin Aspart (Novolog Vial Sliding Scale -) 1 vial SQ HS [facility]; Protocol Insulin Detemir (Levemir Vial) 12 units SQ AM [facility] Last Admin: 11/24/18 06:50 Dose: 12 units Melatonin (Melatonin) 5 mg PO HS PRN PRN Reason: INSOMNIA Last Admin: 11/23/18 23:04 Dose: 5 mg Metoclopramide HCl (Reglan Injection -) 10 mg IVPUSH Q6H PRN PRN Reason: NAUSEA AND/OR VOMITING Last Admin: 11/21/18 20:33 Dose: 10 mg Pantoprazole Sodium (Protonix Iv) 40 mg IVPUSH DAILY [facility] Last Admin: 11/24/18 09:49 Dose: 40 mg Potassium Phos/Sodium Phos (Phos-Nak Packet -) 1 packet PO BID [facility] Last Admin: 11/24/18 09:49 Dose: 1 packet Vancomycin HCl (Vancomycin Oral Solution) 125 mg PO Q6HPO [facility] Last Admin: 11/24/18 06:51 Dose: 125 mg - Objective Vital Signs: Vital Signs Temperature 98.1 F 11/24/18 09:00 Pulse Rate 89 11/24/18 09:00 Respiratory Rate 18 11/24/18 09:00 Blood Pressure 126/62 11/24/18 09:00 O2 Sat by Pulse Oximetry (%) 98 11/24/18 09:00 Constitutional: Yes: No Distress, Calm Cardiovascular: Yes: Regular Rate and Rhythm Respiratory: Yes: Regular, CTA Bilaterally Gastrointestinal: Yes: Normal Bowel Sounds, Soft Musculoskeletal: Yes: WNL Extremities: Yes: WNL Labs: CBC, BMP 11/24/18 06:00 11/24/18 06:00 INR, PTT INR 0.94 (0.83-1.09) 11/19/18 05:30 Assessment/Plan Problem List - Problems (1) Acute respiratory failure Code(s): J96.00 - ACUTE RESPIRATORY FAILURE, UNSP W HYPOXIA OR HYPERCAPNIA (2) Ketoacidosis in type I diabetes mellitus Code(s): E10.10 - TYPE 1 DIABETES MELLITUS WITH KETOACIDOSIS WITHOUT COMA (3) GIANCARLO (acute kidney injury) Code(s): N17.9 - ACUTE KIDNEY FAILURE, UNSPECIFIED (4) Abdominal pain Code(s): R10.9 - UNSPECIFIED ABDOMINAL PAIN (5) DKA (diabetic ketoacidoses) Code(s): E13.10 - OTH DIABETES MELLITUS WITH KETOACIDOSIS WITHOUT COMA Qualifiers: Diabetes mellitus type: other specified (including MARITO) Diabetes mellitus complication detail: without coma Qualified Code(s): E13.10 - Other specified diabetes mellitus with ketoacidosis without coma (6) Cerebrovascular accident (CVA) Code(s): I63.9 - CEREBRAL INFARCTION, UNSPECIFIED Qualifiers: CVA mechanism: unspecified Qualified Code(s): I63.9 - Cerebral infarction, unspecified (7) Diabetes mellitus, insulin dependent (IDDM), uncontrolled Code(s): E10.65 - TYPE 1 DIABETES MELLITUS WITH HYPERGLYCEMIA (8) Leukocytosis Code(s): D72.829 - ELEVATED WHITE BLOOD CELL COUNT, UNSPECIFIED Assessment/Plan Fever Leukocytosis - resolved Diarrhea - C.diff Ag +/ toxin negative DKA Respiratory failure s/p extubation IDDM Hx of CVA HTN continue current mgmtt stable
--- NOTE | 2018-11-24 13:10 | CONSULT ---
Admitting History and Physical - Admission Chief Complaint: Pt. reports that "food is getting stuck sometimes"..."Every day is different". History of Present Illness: Pt. with a PMHx of CVA with residual L side hemiparesis, Type I Diabetes, Hypovolemic shock, Acute respiratory failure, left shoulder pain and Esophageal stricture. 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, Migraine Gastrointestinal: Yes: Other (Gastroparesis) ...LMP: 04/14/13 Endocrine: Yes: Diabetes Mellitus - Past Surgical History Past Surgical History: Yes: Cholecystectomy - Smoking History Smoking history: Unknown if ever smoked Have you smoked in the past 12 months: No Aproximately how many cigarettes per day: 8 - Alcohol/Substance Use Hx Alcohol Use: No - Social History ADL: Independent History of Recent Travel: No History - Admission Reason For Visit: HPERGLYCEMIA Speech Evaluation - Communication Primary Language: GREEK - Speech Characteristics Articulation: Yes: Precise - Swallow Evaluation/Bedside Assessment Current Nutritional Intake: Regular, Thin Liquids A-P Transit: WFL
--- NOTE | 2018-11-24 15:59 | PN ---
Progress Note, Physician Chief Complaint: food getting stuck, elevated blood sugars History of Present Illness: Patient is a 48 year old female with past medical history of HTN, CVA (left sided hemiparesis), HLD, IDDM, DKA, dysphagia, gastroparesis, esophageal stricture (EGD 02/14), presented to [place] ED after being found unresponsive by the neighbor. Patient was found to be in DKA and was treated in the ICU. - Current Medication List Current Medications: Active Medications Acetaminophen (Tylenol -) 650 mg PO Q6H PRN PRN Reason: Fever Or Pain Last Admin: 11/22/18 06:02 Dose: 650 mg Albuterol Sulfate (Ventolin 0.083% Nebulizer Soln -) 1 amp NEB Q4H PRN PRN Reason: SHORTNESS OF BREATH Heparin Sodium (Porcine) (Heparin -) 5,000 unit SQ TID [facility] [place] Last Admin: 11/24/18 13:36 Dose: 5,000 unit Hydromorphone HCl (Dilaudid Vial -) 2 mg IVPUSH Q8H PRN PRN Reason: PAIN LEVEL 6-10 Last Admin: 11/24/18 14:56 Dose: 2 mg Insulin Aspart (Novolog Vial Sliding Scale -) 1 vial SQ TIDAC [facility]; Protocol Last Admin: 11/24/18 12:09 Dose: Not Given Insulin Aspart (Novolog Vial Sliding Scale -) 1 vial SQ HS [facility] [place]; Protocol Insulin Detemir (Levemir Vial) 12 units SQ AM [facility] Last Admin: 11/24/18 06:50 Dose: 12 units Melatonin (Melatonin) 5 mg PO HS PRN PRN Reason: INSOMNIA Last Admin: 11/23/18 23:04 Dose: 5 mg Metoclopramide HCl (Reglan Injection -) 10 mg IVPUSH Q6H PRN PRN Reason: NAUSEA AND/OR VOMITING Last Admin: 11/21/18 20:33 Dose: 10 mg Pantoprazole Sodium (Protonix Iv) 40 mg IVPUSH DAILY [facility] [place] Last Admin: 11/24/18 09:49 Dose: 40 mg Potassium Phos/Sodium Phos (Phos-Nak Packet -) 1 packet PO BID [facility] Last Admin: 11/24/18 09:49 Dose: 1 packet Vancomycin HCl (Vancomycin Oral Solution) 125 mg PO Q6HPO [facility] Last Admin: 11/24/18 13:37 Dose: 125 mg - Objective Vital Signs: Vital Signs Temperature 98.6 F 11/24/18 15:10 Pulse Rate 76 11/24/18 15:10 Respiratory Rate 20 11/24/18 15:10 Blood Pressure 105/61 11/24/18 15:10 O2 Sat by Pulse Oximetry (%) 98 11/24/18 09:00 Constitutional: Yes: Well Nourished, No Distress, Calm Eyes: Yes: WNL HENT: Yes: WNL Neck: Yes: WNL Cardiovascular: Yes: Regular Rate and Rhythm Respiratory: Yes: WNL Gastrointestinal: Yes: Hypoactive Bowel Sounds (hx of SBO with large surgical abdominal scar. pt reports surgery at [facility] for SBO appx 1 month ago.) ...Rectal Exam: Yes: Deferred Musculoskeletal: Yes: WNL Extremities: Yes: WNL Edema: LLE: 1+ (left hand non pitting edema) Peripheral Pulses: Left Radial: 3+ Integumentary: Yes: WNL Neurological: Yes: WNL, Alert, Oriented ...Motor Strength: WNL Psychiatric: Yes: WNL Labs: CBC, BMP 11/24/18 06:00 11/24/18 06:00 INR, PTT INR 0.94 (0.83-1.09) 11/19/18 05:30 Problem List - Problems (1) DKA (diabetic ketoacidoses) Code(s): E13.10 - OTH DIABETES MELLITUS WITH KETOACIDOSIS WITHOUT COMA Qualifiers: Diabetes mellitus type: other specified (including MARITO) Diabetes mellitus complication detail: without coma Qualified Code(s): E13.10 - Other specified diabetes mellitus with ketoacidosis without coma (2) Acute respiratory failure Assessment/Plan: resolved. tolerating room air. continue to monitor oxygen saturations Code(s): J96.00 - ACUTE RESPIRATORY FAILURE, UNSP W HYPOXIA OR HYPERCAPNIA (3) C. difficile diarrhea Assessment/Plan: on PO vanco ID following and appreciate input on continued use of Vancomycin. Code(s): A04.72 - ENTEROCOLITIS D/T CLOSTRIDIUM DIFFICILE, NOT SPCF RECUR (4) Hypovolemic shock Assessment/Plan: resolved. monitor labs, vitals. Code(s): R57.1 - HYPOVOLEMIC SHOCK (5) Ketoacidosis in type I diabetes mellitus Assessment/Plan: Multiple admissions for DKA, hyperglycemia. blood sugars are labile. Endocrinology following. anion gap closed, not in DKA Code(s): E10.10 - TYPE 1 DIABETES MELLITUS WITH KETOACIDOSIS WITHOUT COMA (6) GIANCARLO (acute kidney injury) Code(s): N17.9 - ACUTE KIDNEY FAILURE, UNSPECIFIED (7) Abdominal pain Assessment/Plan: Patient with history of SBO with recent surgery at [facility] per patient hx of gastroparesis tolerating diet follow up with GI as an outpatient Code(s): R10.9 - UNSPECIFIED ABDOMINAL PAIN (8) Clavicle fracture Assessment/Plan: per clavicle xray 11/23, healed fractured deformity. on a immobilizer sling for pain ortho consult as an outpatient Code(s): S42.009A - FRACTURE OF UNSP PART OF UNSP CLAVICLE, INIT FOR CLOS FX Qualifiers: Encounter type: initial encounter Clavicle location: lateral end Fracture type: closed Fracture alignment: displaced Laterality: left Qualified Code(s): S42.032A - Displaced fracture of lateral end of left clavicle , initial encounter for closed fracture (9) Coffee ground emesis Assessment/Plan: resolved, no nausea or vomiting Code(s): K92.0 - HEMATEMESIS (10) Dehydration, mild Assessment/Plan: resolved, continue PO hydration Code(s): E86.0 - DEHYDRATION (11) Dysphagia Assessment/Plan: for speech and swallow evaluation today Code(s): R13.10 - DYSPHAGIA, UNSPECIFIED Qualifiers: Dysphagia type: unspecified Qualified Code(s): R13.10 - Dysphagia, unspecified (12) Prophylactic measure Assessment/Plan: fen tolerating PO monitor electrolytes diabetic diet prophy heparin tid Code(s): Z29.9 - ENCOUNTER FOR PROPHYLACTIC MEASURES, UNSPECIFIED Visit type - Emergency Visit Emergency Visit: Yes ED Registration Date: 11/18/18 Care time: The patient presented to the Emergency Department on the above date and was hospitalized for further evaluation of their emergent condition. - New Patient This patient is new to me today: Yes Date on this admission: 11/24/18 - Critical Care Critical Care patient: No - Discharge Referral Referred to [facility] No
--- NOTE | 2018-11-24 20:39 | CONSULT ---
Admitting History and Physical - Admission Chief Complaint: Pt. with c/o "food is getting stuck" indicating her throat. Pt. further states, "Every day is different". 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 Gastrointestinal: Yes: Other (Gastroparesis) ...LMP: 04/14/13 Musculoskeletal: Yes: Chronic low back pain Endocrine: Yes: Diabetes Mellitus - Past Surgical History Past Surgical History: Yes: Cholecystectomy - Smoking History Smoking history: Unknown if ever smoked Have you smoked in the past 12 months: No Aproximately how many cigarettes per day: 8 - Alcohol/Substance Use Hx Alcohol Use: No History of Substance Use: reports: None - Social History ADL: Independent History of Recent Travel: No History - Admission Reason For Visit: HPERGLYCEMIA - General Mental Status: Alert and Oriented, Awake and Alert, Able to Follow Commands Attention: Intact Ability to Follow Directions: Good Head/Neck Control: WFL Speech Evaluation - Communication Primary Language: DIVEHI Communication: Yes: Within Normal Limits Oral Expression Ability: Yes: No Impairment - Speech Production Apraxia: No Able to Make Needs Known: Yes: WNL Intelligibility: Yes: WNL - Speech Characteristics Voice Loudness: Normal Voice Pitch: Yes: Normal Voice Phonatory-based Quality: Yes: Normal Speech Pattern: Normal Nasal Resonance: Normal Articulation: Yes: Precise Rate of Speech: Intact - Language/Auditory Comprehension Follows: Yes: 2 Stage Simple Commands Observation: Able to respond to yes/no queries: Yes, Yes/No Confusion: No, Comprehends Conversational Speech: Yes - Language/Verbal Expression Aphasia: Yes: Fluent Able to Respond to Simple Queries: Yes: WNL Able to Communicate Wants and Needs: Yes: WNL Functional Communication Status: Yes: WNL Attention: Yes: Intact - Memory/Perception intermediate card tender Memory: Yes: WNL Short Term Memory: Yes: WNL - Swallow Evaluation/Bedside Assessment Current Nutritional Intake: Soft Oral Secretions: Yes: WFL Tracheostomy Present: No Patient on Ventilator: No Dentition: Yes: Adequate, Missing Teeth Facial Symmetry at Rest: Symmetrical Facial Symmetry on Retraction: Symmetrical Facial Movement: Controlled Pucker Lips: Normal Smile: Normal Lingual Movement: Symmetric Lingual Speed of Movement: Normal Laryngeal Elevation: WFL Laryngeal Movement: Able to Palpate Rate of Intake: WFL Bolus Size: WFL Labial Seal: WFL Chewing: WFL Oral Prep Time: WFL A-P Transit: WFL Pocketing: None Timing of Swallow: WFL Coughing/Throat Clear: No Change in Voice: No Recommendations - Speech Evaluation, Impression/Plan Impression: Receptive and Expressive communication judged to be functional at this time. Pt. uses complete sentences to express her wants and needs effectively. Follows directions, takes her turn appropriately during conversation and responds appropriately to questions. No skilled Speech therapy interventions identified at this time. - Disposition Discharge to: To be Determined - Dysphagia Impressions/Plan Swallowing Skills: WFL Dysphagia Impressions: No Impairment (Pt. tolerated PO trials of jello and water without noted difficulty. Oral preparatory phase was unremarkable with timely swallow trigger.) Dysphagia Treatment Plan: Small Bites, OOB for meals, OOB for 1 h. after meals Dysphagia Evaluation Summary: Based on PO trials observed, Pt. presents with functional swallow at this time. Based on c/o "food getting stuck" recommend GI follow-up for esophageal stricture. Recommendations: GI Consult - Recommendations Diet Consistency: Dysphagia Minced Medication Administration: Whole with water Liquids: Thin Liquids (Pt. reports no difficulty with thin liquids.)
[2018-11-24] MEDS: MELATONIN 5 MG TABLETS PO PRN (22:22)
[2018-11-24] MEDS: ACETAMINOPHEN 325 MG TABLET (FP) PO PRN (22:22)
[2018-11-25] MEDS: HEPARIN NA (PORCINE) 5,000 UNITS/ML 1ML VIAL SQ SCH ×3 (06:25→21:57)
[2018-11-25] MEDS: VANCOMYCIN 250 MG/5 ML ORAL SOLUTION PO SCH ×4 (06:25→23:34)
[2018-11-25] MEDS: INSULIN (LEVEMIR) 100 UNITS/ML UNITS SQ SCH (06:26)
[2018-11-25] MEDS: INSULIN SLIDING SCALE (NOVOLOG) 1 VIAL SQ SCH ×4 (06:26→21:57)
[2018-11-25 07:18] LABS: BASO % 0.3 % (0-2.0); EOS % 1.3 % (0-4.5); HEMATOCRIT 23.5 % (32.4-45.2); HEMOGLOBIN 7.6 GM/dL (10.7-15.3); LYMPH % 45.6 % (8-40); MCH 27.1 pg (25.7-33.7); MCHC 32.5 g/dl (32.0-36.0); MEAN CELL VOLUME 83.3 fl (80-96); MEAN PLT VOLUME 7.8 fl (7.5-11.1); MONO % 9.1 % (3.8-10.2); NEUT % 43.7 % (42.8-82.8); PLATELET COUNT 309 K/MM3 (134-434); RBC 2.82 M/mm3 (3.60-5.2); RDW 17.8 % (11.6-15.6); WHITE BLOOD COUNT 5.8 K/mm3 (4.0-10.0)
[2018-11-25 08:24] LABS: ALBUMIN 2.1 g/dl (3.4-5.0); BILIRUBIN,TOTAL 0.2 mg/dL (0.2-1); CALCIUM 8.1 mg/dL (8.5-10.1); CREATININE 0.6 mg/dL (0.55-1.3); MAGNESIUM 1.8 mg/dL (1.8-2.4); POTASSIUM 4.4 mmol/L (3.5-5.1); TOT PROT 5.3 g/dl (6.4-8.2)
[2018-11-25] MEDS: NAPH,MB-DB/K PH,MBDB POWDER PACKET PO SCH ×2 (09:03→21:58)
[2018-11-25] MEDS: PANTOPRAZOLE SODIUM 40 MG VIAL IVPUSH SCH (09:03)
[2018-11-25] MEDS: HYDROmorphone HCl 2 MG/ML VIAL IVPUSH PRN (09:03)
--- NOTE | 2018-11-25 09:42 | PN ---
Progress Note, Physician Chief Complaint: food getting stuck, elevated blood sugars History of Present Illness: Patient is a 48 year old female with past medical history of HTN, CVA (left sided hemiparesis), HLD, IDDM, DKA, dysphagia, gastroparesis, esophageal stricture (EGD 02/14), presented to [place] ED after being found unresponsive by the neighbor. Patient was found to be in DKA and was treated in the ICU. - Current Medication List Current Medications: Active Medications Acetaminophen (Tylenol -) 650 mg PO Q6H PRN PRN Reason: Fever Or Pain Last Admin: 11/24/18 22:22 Dose: 650 mg Albuterol Sulfate (Ventolin 0.083% Nebulizer Soln -) 1 amp NEB Q4H PRN PRN Reason: SHORTNESS OF BREATH Heparin Sodium (Porcine) (Heparin -) 5,000 unit SQ TID [facility] Last Admin: 11/25/18 06:25 Dose: 5,000 unit Hydromorphone HCl (Dilaudid Vial -) 2 mg IVPUSH Q8H PRN PRN Reason: PAIN LEVEL 6-10 Last Admin: 11/25/18 09:03 Dose: 2 mg Insulin Aspart (Novolog Vial Sliding Scale -) 1 vial SQ TIDAC [facility]; Protocol Last Admin: 11/25/18 06:26 Dose: 6 units Insulin Aspart (Novolog Vial Sliding Scale -) 1 vial SQ HS [facility]; Protocol Last Admin: 11/24/18 22:21 Dose: 2 units Insulin Detemir (Levemir Vial) 12 units SQ AM [facility] Last Admin: 11/25/18 06:26 Dose: 12 units Melatonin (Melatonin) 5 mg PO HS PRN PRN Reason: INSOMNIA Last Admin: 11/24/18 22:22 Dose: 5 mg Metoclopramide HCl (Reglan Injection -) 10 mg IVPUSH Q6H PRN PRN Reason: NAUSEA AND/OR VOMITING Last Admin: 11/21/18 20:33 Dose: 10 mg Pantoprazole Sodium (Protonix Iv) 40 mg IVPUSH DAILY [facility] Last Admin: 11/25/18 09:03 Dose: 40 mg Potassium Phos/Sodium Phos (Phos-Nak Packet -) 1 packet PO BID [facility] Last Admin: 11/25/18 09:03 Dose: 1 packet Vancomycin HCl (Vancomycin Oral Solution) 125 mg PO Q6HPO [facility] Last Admin: 11/25/18 06:25 Dose: 125 mg - Objective Vital Signs: Vital Signs Temperature 97.9 F 11/25/18 06:00 Pulse Rate 76 11/25/18 06:00 Respiratory Rate 20 11/25/18 06:00 Blood Pressure 128/69 11/25/18 06:00 O2 Sat by Pulse Oximetry (%) 98 11/24/18 21:00 Constitutional: Yes: No Distress, Calm Eyes: Yes: WNL HENT: Yes: WNL Neck: Yes: WNL Cardiovascular: Yes: Regular Rate and Rhythm Respiratory: Yes: Regular Gastrointestinal: Yes: Soft (recent open surgery for sbo at [facility].) ...Rectal Exam: Yes: Deferred Genitourinary: Yes: WNL Extremities: Yes: WNL Edema: Yes (left hand edema improving) Integumentary: Yes: WNL Neurological: Yes: WNL, Alert, Oriented ...Motor Strength: WNL Psychiatric: Yes: WNL, Alert, Oriented Labs: CBC, BMP 11/25/18 06:45 11/25/18 06:45 INR, PTT INR 0.94 (0.83-1.09) 11/19/18 05:30 - ....Imaging X-ray: Image Reviewed Problem List - Problems (1) DKA (diabetic ketoacidoses) Assessment/Plan: DKA resolved. Anion gap closed. blood sugars labile. Followed by endocrinology. per patient she has a insulin pump at home. Code(s): E13.10 - OTH DIABETES MELLITUS WITH KETOACIDOSIS WITHOUT COMA Qualifiers: Diabetes mellitus type: other specified (including MARITO) Diabetes mellitus complication detail: without coma Qualified Code(s): E13.10 - Other specified diabetes mellitus with ketoacidosis without coma (2) Abdominal pain Assessment/Plan: Patient with history of SBO with recent surgery at [facility] per patient (Marcelo at [facility]) hx of gastroparesis. She was admitted last month to [facility] and she reports having sx for small intestinal blockage. She says she has liquids at home and solids, vomits intermittently. She has a f/ u visit scheduled next week with Dr. Robertson. Swallow eval done and recommendatins noted. patient now on minced food/thin liquids/supplements for now with f/u by GI. Code(s): R10.9 - UNSPECIFIED ABDOMINAL PAIN (3) Acute respiratory failure Assessment/Plan: resolved. tolerating room air. continue to monitor oxygen saturations Code(s): J96.00 - ACUTE RESPIRATORY FAILURE, UNSP W HYPOXIA OR HYPERCAPNIA (4) C. difficile diarrhea Assessment/Plan: on PO vanco. will need a total of 10 days of vancomycin Code(s): A04.72 - ENTEROCOLITIS D/T CLOSTRIDIUM DIFFICILE, NOT SPCF RECUR (5) Hypovolemic shock Assessment/Plan: resolved. monitor labs, vitals. Code(s): R57.1 - HYPOVOLEMIC SHOCK (6) Ketoacidosis in type I diabetes mellitus Assessment/Plan: Multiple admissions for DKA, hyperglycemia. blood sugars are labile. Endocrinology following. anion gap closed, not in DKA Code(s): E10.10 - TYPE 1 DIABETES MELLITUS WITH KETOACIDOSIS WITHOUT COMA (7) GIANCARLO (acute kidney injury) Code(s): N17.9 - ACUTE KIDNEY FAILURE, UNSPECIFIED (8) Clavicle fracture Assessment/Plan: per clavicle xray 11/23, healed fractured deformity. on a immobilizer sling for pain ortho consult as an outpatient Code(s): S42.009A - FRACTURE OF UNSP PART OF UNSP CLAVICLE, INIT FOR CLOS FX Qualifiers: Encounter type: initial encounter Clavicle location: lateral end Fracture type: closed Fracture alignment: displaced Laterality: left Qualified Code(s): S42.032A - Displaced fracture of lateral end of left clavicle , initial encounter for closed fracture (9) Anemia Assessment/Plan: hmg/hct downtrending. iron studies ordered as well as a b12 and folate level. hematology consulted, awaiting further recommendations. stool for occult blood ordered. Code(s): D64.9 - ANEMIA, UNSPECIFIED (10) Coffee ground emesis Assessment/Plan: resolved, no nausea or vomiting Code(s): K92.0 - HEMATEMESIS (11) Dehydration, mild Assessment/Plan: resolved, continue PO hydration Code(s): E86.0 - DEHYDRATION (12) Dysphagia Assessment/Plan: Per speech and swallow evaluation, recommend minced diet with thin liquids. Patient sees Dr. Robertson at [facility] and has a follow up appointment with him next week. Code(s): R13.10 - DYSPHAGIA, UNSPECIFIED Qualifiers: Dysphagia type: unspecified Qualified Code(s): R13.10 - Dysphagia, unspecified (13) Prophylactic measure Assessment/Plan: fen tolerating PO monitor electrolytes diabetic diet prophy heparin tid Code(s): Z29.9 - ENCOUNTER FOR PROPHYLACTIC MEASURES, UNSPECIFIED Visit type - Emergency Visit Emergency Visit: Yes ED Registration Date: 11/18/18 Care time: The patient presented to the Emergency Department on the above date and was hospitalized for further evaluation of their emergent condition. - New Patient This patient is new to me today: No - Critical Care Critical Care patient: No - Discharge Referral Referred to [facility] Med [facility].C.: No
--- NOTE | 2018-11-25 11:05 | PN ---
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 Referred to GI for smooth stricture suspected. Pt was followed by Dr. Ortiz, as well as by Dr. Robertson at [facility]. She was admitted last month to [facility] and she reports having sx for small intesitinal blockage. She says she has liquids at home and solids, vomits intermittently. She has a f/ u visit scheduled next weak with Dr. Robertson. Case reviewed with INTERVENTION TEACHER. Pt to remain on minced food/thin liquids/supplements for now with f/u by GI.
--- NOTE | 2018-11-25 11:52 | PN ---
Progress Note, Physician - Current Medication List Current Medications: Active Medications Acetaminophen (Tylenol -) 650 mg PO Q6H PRN PRN Reason: Fever Or Pain Last Admin: 11/24/18 22:22 Dose: 650 mg Albuterol Sulfate (Ventolin 0.083% Nebulizer Soln -) 1 amp NEB Q4H PRN PRN Reason: SHORTNESS OF BREATH Heparin Sodium (Porcine) (Heparin -) 5,000 unit SQ TID [facility] Last Admin: 11/25/18 06:25 Dose: 5,000 unit Hydromorphone HCl (Dilaudid Vial -) 2 mg IVPUSH Q8H PRN PRN Reason: PAIN LEVEL 6-10 Last Admin: 11/25/18 09:03 Dose: 2 mg Insulin Aspart (Novolog Vial Sliding Scale -) 1 vial SQ TIDAC [facility]; Protocol Last Admin: 11/25/18 06:26 Dose: 6 units Insulin Aspart (Novolog Vial Sliding Scale -) 1 vial SQ HS [facility]; Protocol Last Admin: 11/24/18 22:21 Dose: 2 units Insulin Detemir (Levemir Vial) 12 units SQ AM [facility] Last Admin: 11/25/18 06:26 Dose: 12 units Melatonin (Melatonin) 5 mg PO HS PRN PRN Reason: INSOMNIA Last Admin: 11/24/18 22:22 Dose: 5 mg Metoclopramide HCl (Reglan Injection -) 10 mg IVPUSH Q6H PRN PRN Reason: NAUSEA AND/OR VOMITING Last Admin: 11/21/18 20:33 Dose: 10 mg Pantoprazole Sodium (Protonix Iv) 40 mg IVPUSH DAILY [facility] Last Admin: 11/25/18 09:03 Dose: 40 mg Potassium Phos/Sodium Phos (Phos-Nak Packet -) 1 packet PO BID [facility] Last Admin: 11/25/18 09:03 Dose: 1 packet Vancomycin HCl (Vancomycin Oral Solution) 125 mg PO Q6HPO [facility] Last Admin: 11/25/18 06:25 Dose: 125 mg - Objective Vital Signs: Vital Signs Temperature 98.4 F 11/25/18 10:00 Pulse Rate 80 11/25/18 10:00 Respiratory Rate 20 11/25/18 10:00 Blood Pressure 134/71 11/25/18 10:00 O2 Sat by Pulse Oximetry (%) 99 11/25/18 09:00 Labs: CBC, BMP 05/29/19 06:45 11/25/18 06:45 INR, PTT INR 0.94 (0.83-1.09) 11/19/18 05:30
--- NOTE | 2018-11-25 16:17 | RAPID ---
Physical Examination Vital Signs: Vital Signs Temperature 98.4 F 11/25/18 14:00 Pulse Rate 82 11/25/18 14:00 Respiratory Rate 20 11/25/18 14:00 Blood Pressure 125/72 11/25/18 14:00 O2 Sat by Pulse Oximetry (%) 99 11/25/18 09:00 Labs: CBC, BMP 11/25/18 06:45 11/25/18 06:45 Rapid Response - Rapid Response Assessment: Rapid response called as patient clutching the left side of her chest and complaining of pain and weakness in left arm. GEN: A&O, in moderate distress, crying out HEENT: PERRL, EOMI, moist mucus membranes HEART: RRR, no murmurs noted LUNGS: CTA b/l, no wheezes noted, breath sounds in all lung regions NEURO: left sided weakness LUE/LLE (residual as per old records) EXTREMITIES: LUE 1+ edema noted Ddx r/o ACS, very unlikely CVA, possibility of anxiety component Plan CBC, CMP, Cardiac profile, CXR, Lactic acid. EKG with improved t waves from admission, no concerning ST changes Follow labs, primary team to be made aware
--- NOTE | 2018-11-25 16:28 | CONSULT ---
Consultation: REQUESTING PROVIDER: CONSULT REQUEST: We have been asked to medically evaluate this patient for normocytic anemia HISTORY OF PRESENT ILLNESS: This is a 48 yo F with PMH HTN, CVA (left sided hemiparesis), HLD, IDDM 1 with numerous admissions for DKA, Dysphagia, Gastroparesis, esophageal stricture ( EGD 02/14), who was BIBEMS due to unresponsiveness, was found to have DKA and sepsis due to CDIFF, initially treated in ICU. Now DKA resolved, being treated with PO Vanco. Heme consulted due to normocytic anemia, worsening during this admission hgb 7.6 today (baseline hgb 9-10, however patient periodically anemic in EMR lowest hgb 8.1). patient denies hematemesis, hemoptysis, melena, hematochezia, hematuria. has neer had a mammogram. normal pap smear 3 yrs ago, never abnormal. never had a colonoscopy. denies family history of CA. Denies weight loss, fevers, night sweats. Heady history of smoking 25 pack yrs REVIEW OF SYSTEMS: CONSTITUTIONAL: Absent: fever, chills, weight change HEENT: Absent: rhinorrhea, nasal congestion, throat pain CARDIOVASCULAR: Absent: chest pain, syncope, palpitations, irregular heart rate, lightheadedness , peripheral edema RESPIRATORY: Absent: cough, shortness of breath, hemoptysis GASTROINTESTINAL: Absent: melena, hematochezia GENITOURINARY: Absent: dysuria, hematuria MUSCULOSKELETAL: Absent: back pain, neck pain SKIN: Absent: rash, itching, pallor HEMATOLOGIC/IMMUNOLOGIC: Absent: easy bleeding, easy bruising ENDOCRINE: Absent: unexplained weight gain, unexplained weight loss NEUROLOGIC: Absent: headache, focal weakness or paresthesiasbowel incontinence PSYCHIATRIC: Absent: hallucinations. PHYSICAL EXAMINATION Vital Signs - 24 hr 11/24/18 11/24/18 11/24/18 18:00 21:00 22:00 Temperature 99.1 F 98.8 F Pulse Rate 77 76 Respiratory 20 20 Rate Blood Pressure 122/57 L 125/68 O2 Sat by Pulse 98 Oximetry (%) 11/25/18 11/25/18 11/25/18 06:00 09:00 10:00 Temperature 97.9 F 98.4 F Pulse Rate 76 80 Respiratory 20 20 20 Rate Blood Pressure 128/69 134/71 O2 Sat by Pulse 99 Oximetry (%) 11/25/18 14:00 Temperature 98.4 F Pulse Rate 82 Respiratory 20 Rate Blood Pressure 125/72 O2 Sat by Pulse Oximetry (%) GENERAL: Awake, alert, and fully oriented, in no acute distress. HEAD: Normal with no signs of trauma. EYES: extraocular movements intact, sclera anicteric, conjunctiva clear. No lid lag. EARS, NOSE, THROAT: Moist mucous membranes. NECK: supple without lymphadenopathy, or masses, no supraclavicular adenopathy. Breast: no masses or lesions, no axillary adenopathy LUNGS: Breath sounds equal, clear to auscultation bilaterally. HEART: Regular rate and rhythm, normal S1 and S2 ABDOMEN: Soft, mildly diffusely tender, not distended, normoactive bowel sounds Laboratory Results - last 24 hr 11/24/18 11/24/18 11/25/18 17:02 22:20 06:24 WBC RBC Hgb Hct MCV MCH MCHC RDW Plt Count MPV Absolute Neuts (auto) Neutrophils % Lymphocytes % Monocytes % Eosinophils % Basophils % Nucleated RBC % Sodium Potassium Chloride Carbon Dioxide Anion Gap BUN Creatinine Est GFR (CKD-EPI)AfAm Est GFR (CKD-EPI)NonAf POC Glucometer 74 206 375 Random Glucose Calcium Magnesium Total Bilirubin AST ALT Alkaline Phosphatase Total Protein Albumin 11/25/18 11/25/18 11/25/18 06:45 06:45 11:35 WBC 5.8 RBC 2.82 L Hgb 7.6 L Hct 23.5 L MCV 83.3 MCH 27.1 MCHC 32.5 RDW 17.8 H Plt Count 309 D MPV 7.8 Absolute Neuts (auto) 2.5 Neutrophils % 43.7 D Lymphocytes % 45.6 H D Monocytes % 9.1 Eosinophils % 1.3 D Basophils % 0.3 Nucleated RBC % 0 Sodium 137 Potassium 4.4 Chloride 103 Carbon Dioxide 27 Anion Gap 7 L BUN 6 L Creatinine 0.6 Est GFR (CKD-EPI)AfAm 124.05 Est GFR (CKD-EPI)NonAf 107.03 POC Glucometer 205 Random Glucose 409 H* Calcium 8.1 L Magnesium 1.8 Total Bilirubin 0.2 AST 8 L ALT 10 L Alkaline Phosphatase 126 H Total Protein 5.3 L Albumin 2.1 L 11/25/18 16:13 WBC RBC Hgb Hct MCV MCH MCHC RDW Plt Count MPV Absolute Neuts (auto) Neutrophils % Lymphocytes % Monocytes % Eosinophils % Basophils % Nucleated RBC % Sodium Potassium Chloride Carbon Dioxide Anion Gap BUN Creatinine Est GFR (CKD-EPI)AfAm Est GFR (CKD-EPI)NonAf POC Glucometer 155 Random Glucose Calcium Magnesium Total Bilirubin AST ALT Alkaline Phosphatase Total Protein Albumin Active Medications Generic Name Dose Route Start Last Admin Trade Name Freq PRN Reason Stop Dose Admin Acetaminophen 650 mg 11/21/18 14:55 11/24/18 22:22 Tylenol - PO 650 mg Q6H PRN Administration Fever Or Pain Albuterol Sulfate 1 amp 11/21/18 14:55 Ventolin 0.083% Nebulizer Soln - NEB Q4H PRN SHORTNESS OF BREATH Heparin Sodium (Porcine) 5,000 unit 11/21/18 22:00 11/25/18 14:28 Heparin - SQ Not Given TID [facility] Hydromorphone HCl 2 mg 11/22/18 11:27 11/25/18 09:03 Dilaudid Vial - IVPUSH 2 mg Q8H PRN Administration PAIN LEVEL 6-10 Insulin Aspart 1 vial 11/21/18 16:30 11/25/18 12:17 Novolog Vial Sliding Scale - SQ 3 units TIDAC [facility] Administration Protocol Insulin Aspart 1 vial 11/24/18 08:52 11/24/18 22:21 Novolog Vial Sliding Scale - SQ 2 units HS [facility] Administration Protocol Insulin Detemir 12 units 11/22/18 11:29 11/25/18 06:26 Levemir Vial SQ 12 units AM [facility] Administration Melatonin 5 mg 11/21/18 20:41 11/24/18 22:22 Melatonin PO 5 mg HS PRN Administration INSOMNIA Metoclopramide HCl 10 mg 11/21/18 14:55 11/21/18 20:33 Reglan Injection - IVPUSH 10 mg Q6H PRN Administration NAUSEA AND/OR VOMITING Pantoprazole Sodium 40 mg 11/22/18 10:00 11/25/18 09:03 Protonix Iv IVPUSH 40 mg DAILY [facility] Administration Potassium Phos/Sodium Phos 1 packet 11/21/18 22:00 11/25/18 09:03 Phos-Nak Packet - PO 1 packet BID [facility] Administration Vancomycin HCl 125 mg 11/21/18 18:00 11/25/18 14:27 Vancomycin Oral Solution PO 125 mg Q6HPO [facility] Administration ASSESSMENT/PLAN: This is a 48 yo F with PMH HTN, CVA (left sided hemiparesis), HLD, IDDM 1 with numerous admissions for DKA, Dysphagia, Gastroparesis, esophageal stricture ( EGD 02/14), who was BIBEMS due to unresponsiveness, was found to have DKA and sepsis due to CDIFF, Heme consulted due to normocytic anemia Normocytic anemia IDDM1 DKA resolved C diff colitis HTN Prior CVA gastroparesis -suspect anemia of chronic disease, r/o gi blood loss -f/u fe studies, haptoglobin, retic count, ldh, tfts, sob -continue PO vanco per ID consult -insulin regimen per endocrine consult Dispo: We will continue to follow the patient. Thank you for this consultative opportunity. Visit type - Emergency Visit Emergency Visit: Yes ED Registration Date: 11/18/18 Care time: The patient presented to the Emergency Department on the above date and was hospitalized for further evaluation of their emergent condition. - New Patient This patient is new to me today: Yes Date on this admission: 12/22/18 - Critical Care Critical Care patient: No
[2018-11-25] MEDS ORDERED: HYDROmorphone HCl 2 MG/ML VIAL IVPB ONE (16:38)
[2018-11-25 16:55] LABS: BASO % 0.2 % (0-2.0); EOS % 1.1 % (0-4.5); HEMATOCRIT 26.2 % (32.4-45.2); HEMOGLOBIN 8.5 GM/dL (10.7-15.3); LYMPH % 39.1 % (8-40); MCH 27.3 pg (25.7-33.7); MCHC 32.5 g/dl (32.0-36.0); MEAN PLT VOLUME 7.8 fl (7.5-11.1); MONO % 10.5 % (3.8-10.2); NEUT % 49.1 % (42.8-82.8); PLATELET COUNT 390 K/MM3 (134-434); RBC 3.12 M/mm3 (3.60-5.2); WHITE BLOOD COUNT 7.4 K/mm3 (4.0-10.0)
--- NOTE | 2018-11-25 17:13 | PN ---
Progress Note (short form) - Note Progress Note: Rapid response called b/o left arm/chest pain Still c/o left arm pain Vital Signs Period Temp Pulse Resp BP Sys/Rapp Pulse Ox Last 24 Hr 97.9 F-99.1 F 76-82 20-20 122-134/57-72 98-99 PE: AOx3 HEENT: EOMI Neck: Supple, No JVD Lungs: CTA CVS: S1S2 Abd: Benign Ext: Mild swelling left hand CMP Sodium 137 mmol/L (136-145) 11/25/18 06:45 Potassium 4.4 mmol/L (3.5-5.1) 11/25/18 06:45 Chloride 103 mmol/L (98-107) 11/25/18 06:45 Carbon Dioxide 27 mmol/L (21-32) 11/25/18 06:45 Anion Gap 7 MMOL/L (8-16) L 11/25/18 06:45 BUN 6 mg/dL (7-18) L 11/25/18 06:45 Creatinine 0.6 mg/dL (0.55-1.3) 11/25/18 06:45 Est GFR (CKD-EPI)AfAm 124.05 11/25/18 06:45 Est GFR (CKD-EPI)NonAf 107.03 11/25/18 06:45 POC Glucometer 155 UNITS (80-120) 11/25/18 16:13 Random Glucose 409 mg/dL (74-106) H* 11/25/18 06:45 Lactic Acid 2.6 mmol/L (0.4-2.0) H* 11/19/18 16:00 Calcium 8.1 mg/dL (8.5-10.1) L 11/25/18 06:45 Phosphorus 3.9 mg/dL (2.5-4.9) 11/23/18 06:00 Magnesium 1.8 mg/dL (1.8-2.4) 11/25/18 06:45 Total Bilirubin 0.2 mg/dL (0.2-1) 11/25/18 06:45 AST 8 U/L (15-37) L 11/25/18 06:45 ALT 10 U/L (13-61) L 11/25/18 06:45 Alkaline Phosphatase 126 U/L (45-117) H 11/25/18 06:45 Creatine Kinase 55 U/L (26-192) 11/18/18 13:24 Total Protein 5.3 g/dl (6.4-8.2) L 11/25/18 06:45 Albumin 2.1 g/dl (3.4-5.0) L 11/25/18 06:45 Current Medications Generic Name Dose Route Start Last Admin Trade Name Freq PRN Reason Stop Dose Admin Acetaminophen 650 mg 11/21/18 14:55 11/24/18 22:22 Tylenol - PO 650 mg Q6H PRN Administration Fever Or Pain Albuterol Sulfate 1 amp 11/21/18 14:55 Ventolin 0.083% Nebulizer Soln - NEB Q4H PRN SHORTNESS OF BREATH Heparin Sodium (Porcine) 5,000 unit 11/21/18 22:00 11/25/18 14:28 Heparin - SQ Not Given TID [facility] Hydromorphone HCl 2 mg 11/25/18 16:47 Dilaudid Vial - IVPB Q8H PRN PAIN LEVEL 6-10 Insulin Aspart 1 vial 11/21/18 16:30 11/25/18 16:54 Novolog Vial Sliding Scale - SQ 2 units TIDAC [facility] Administration Protocol Insulin Aspart 1 vial 11/24/18 08:52 11/24/18 22:21 Novolog Vial Sliding Scale - SQ 2 units HS [facility] Administration Protocol Insulin Detemir 12 units 11/22/18 11:29 11/25/18 06:26 Levemir Vial SQ 12 units AM [facility] Administration Melatonin 5 mg 11/21/18 20:41 11/24/18 22:22 Melatonin PO 5 mg HS PRN Administration INSOMNIA Metoclopramide HCl 10 mg 11/21/18 14:55 11/21/18 20:33 Reglan Injection - IVPUSH 10 mg Q6H PRN Administration NAUSEA AND/OR VOMITING Pantoprazole Sodium 40 mg 11/22/18 10:00 11/25/18 09:03 Protonix Iv IVPUSH 40 mg DAILY [facility] Administration Potassium Phos/Sodium Phos 1 packet 11/21/18 22:00 11/25/18 09:03 Phos-Nak Packet - PO 1 packet BID [facility] Administration Vancomycin HCl 125 mg 11/21/18 18:00 11/25/18 14:27 Vancomycin Oral Solution PO 125 mg Q6HPO [facility] Administration AP: DKA resolved, No further episode of hypoglycemia T1DM: fluctuating blood sugar, high in the morning. Electrolyte Imbalance Abd pain left Arm pain Change Levemir 8 units BID starting tomorrow. Levemir 6 units tonight BGM Q ACHS and 3 AM NOvolog SS Q ACHS Tolerating diet Will f/u
[2018-11-25 17:29] LABS: ALBUMIN 2.5 g/dl (3.4-5.0); BILIRUBIN,TOTAL 0.2 mg/dL (0.2-1); CALCIUM 8.7 mg/dL (8.5-10.1); CREATININE 0.6 mg/dL (0.55-1.3); MAGNESIUM 2.2 mg/dL (1.8-2.4); PHOSPHOROUS 3.4 mg/dL (2.5-4.9); POTASSIUM 4.3 mmol/L (3.5-5.1); TOT PROT 5.9 g/dl (6.4-8.2)
--- NOTE | 2018-11-25 18:59 | PN ---
Teaching Attending Note Name of Resident: Funmi Lucero ATTENDING PHYSICIAN STATEMENT I saw and evaluated the patient. I reviewed the resident's note and discussed the case with the resident. I agree with the resident's findings and plan as documented. SUBJECTIVE: Patient seen and examined multiple co-morbid medical problems B-12, folate normal NC/NC anemia Last Vital Signs Temp Pulse Resp BP Pulse Ox 98.4 F 82 20 125/72 99 11/25/18 14:00 11/25/18 14:00 11/25/18 14:00 11/25/18 14:00 11/25/18 09:00 HEENT: AUTUMN, EOM Intact Oropharynx: No thrush, No mucositis Neck: Supple Nodes: Without adenopathy Breasts: Without masses Cor: RSR, No murmurs, No gallops Lungs: Clear to P&A Abd: Soft, Normal bowel sounds, No organomegaly,surgical scar Ext:No significant edema Skin: No rashes, Integument intact CBC, BMP 11/25/18 16:50 11/25/18 16:12 NC/NC anemia Suspect chronic disease anemia Await screening tests OBJECTIVE: ASSESSMENT AND PLAN:
[2018-11-25] MEDS ORDERED: INSULIN (LEVEMIR) 100 UNITS/ML UNITS SQ ONE (22:00)
[2018-11-25] MEDS: HYDROmorphone HCl 2 MG/ML VIAL IVPB PRN (22:08)
[2018-11-26 04:10] LABS: SERUM IRON SATURATION 13 % (15-55); TOTAL IRON BINDING CAPACITY 313 ug/dL (250-450); UIBC 271 ug/dL (131-425)
[2018-11-26] MEDS: HYDROmorphone HCl 2 MG/ML VIAL IVPB PRN (05:43)
[2018-11-26] MEDS: INSULIN SLIDING SCALE (NOVOLOG) 1 VIAL SQ SCH (06:54)
[2018-11-26] MEDS: HEPARIN NA (PORCINE) 5,000 UNITS/ML 1ML VIAL SQ SCH (06:54)
[2018-11-26] MEDS: VANCOMYCIN 250 MG/5 ML ORAL SOLUTION PO SCH (06:54)
[2018-11-26] MEDS ORDERED: INSULIN (LEVEMIR) 100 UNITS/ML UNITS SQ SCH ×2 (07:00→22:00)
[2018-11-26 07:08] LABS: BASO % 0.2 % (0-2.0); EOS % 1.8 % (0-4.5); HEMATOCRIT 25.5 % (32.4-45.2); HEMOGLOBIN 8.4 GM/dL (10.7-15.3); LYMPH % 38.8 % (8-40); MCH 27.3 pg (25.7-33.7); MCHC 32.8 g/dl (32.0-36.0); MEAN CELL VOLUME 83.2 fl (80-96); MEAN PLT VOLUME 7.6 fl (7.5-11.1); MONO % 10.7 % (3.8-10.2); NEUT % 48.5 % (42.8-82.8); PLATELET COUNT 391 K/MM3 (134-434); RBC 3.06 M/mm3 (3.60-5.2); RDW 17.9 % (11.6-15.6); WHITE BLOOD COUNT 6.9 K/mm3 (4.0-10.0)
[2018-11-26 07:57] LABS: ALBUMIN 2.5 g/dl (3.4-5.0); ALK PHOS 138 U/L (45-117); ANION GAP 9 MMOL/L (8-16); BILIRUBIN,TOTAL 0.1 mg/dL (0.2-1); BLOOD UREA NITROGEN 4 mg/dL (7-18); CALCIUM 8.5 mg/dL (8.5-10.1); CHLORIDE 106 mmol/L (98-107); CO2 26 mmol/L (21-32); CREATININE 0.5 mg/dL (0.55-1.3); GLUCOSE,RANDOM 106 mg/dL (74-106); LDH 200 U/L (84-246); MAGNESIUM 2.1 mg/dL (1.8-2.4); POTASSIUM 3.9 mmol/L (3.5-5.1); SGOT/AST 9 U/L (15-37); SGPT/ALT 12 U/L (13-61); SODIUM 141 mmol/L (136-145); TOT PROT 6.1 g/dl (6.4-8.2)
[2018-11-26] MEDS ORDERED: LIDOCAINE 5% TOPICAL PATCH TP ONE (09:47)
--- NOTE | 2018-11-26 09:49 | PROC ---
Procedure Note Procedure: Right subclavian catheter removed intact without difficulty Patient tolerated procedure well, no bleeding noted All sutures removed. Patient instructed to stay in bed post removal for 1 hour to prevent bleeding RN to monitor for any bleeding After one hour and if no bleeding, patient may be discharged home
--- NOTE | 2018-11-26 09:49 | DS ---
Physical Exam: SUBJECTIVE: Patient seen and examined at the bedside. feels well, denies any further chest pain or left arm numbness. Patient has an appointment tomorrow to see Dr. Chaudhary, her new PCP. She has been instructed to also follow up with her GI doctor (Dr. Robertson) at [facility] (she has an appointment next week. She denies any chest pain, but her arm pain is intermittent and chronic. She had fallen on this arm about a month ago after walking her dog. She has been evaluated by an orthopedic per patient and told, no surgery is needed. She has an old shoulder fracture per xray done here. She will be sent home with physical therapy at home. She is encouraged to see an orthopedic if the pain continues. For now, lidocaine patches, PT and Tylenol. OBJECTIVE: discharge home with PT at home via [facility] as well as follow up with her new PCP. She is willing to follow up with hematology as an outpatient Anemia workup is currently pending. She is agreeing to follow up with hematology by making an appointment. Vital Signs Period Temp Pulse Resp BP Sys/Rapp Pulse Ox Last 24 Hr 98.4 F-99 F 78-87 20-22 120-144/60-73 99 PHYSICAL EXAM GENERAL: The patient is awake, alert, and fully oriented, in no acute distress. HEAD: Normal with no signs of trauma. EYES: PERRL, extraocular movements intact, sclera anicteric, conjunctiva clear. ENT: Ears normal, nares patent, oropharynx clear without exudates, moist mucous membranes. NECK: Trachea midline, full range of motion, supple. LUNGS: Breath sounds equal, clear to auscultation bilaterally, no wheezes HEART: Regular rate and rhythm ABDOMEN: Soft, nontender, nondistended, normoactive bowel sounds, no guarding, no rebound, no hepatosplenomegaly, no masses. EXTREMITIES: left hand +1 edema, improved from yesterday NEUROLOGICAL: Normal speech, gait steady PSYCH: Normal mood, normal affect. SKIN: Warm, dry, normal turgor, no rashes or lesions noted. LABS Laboratory Results - last 24 hr 11/25/18 11/25/18 11/25/18 06:45 10:15 11:35 WBC RBC Hgb Hct MCV MCH MCHC RDW Plt Count MPV Absolute Neuts (auto) Neutrophils % Lymphocytes % Monocytes % Eosinophils % Basophils % Nucleated RBC % Sodium 137 Potassium 4.4 Chloride 103 Carbon Dioxide 27 Anion Gap 7 L BUN 6 L Creatinine 0.6 Est GFR (CKD-EPI)AfAm 124.05 Est GFR (CKD-EPI)NonAf 107.03 POC Glucometer 205 Random Glucose 409 H* Lactic Acid Calcium 8.1 L Phosphorus Magnesium 1.8 Iron 42 TIBC 313 Iron Saturation 13 L Ferritin 66.7 Total Bilirubin 0.2 AST 8 L ALT 10 L Alkaline Phosphatase 126 H LD Total Creatine Kinase Troponin I Total Protein 5.3 L Albumin 2.1 L Vitamin B12 637 Serum Folate 12 TSH Free T4 11/25/18 11/25/18 11/25/18 16:12 16:13 16:13 WBC RBC Hgb Hct MCV MCH MCHC RDW Plt Count MPV Absolute Neuts (auto) Neutrophils % Lymphocytes % Monocytes % Eosinophils % Basophils % Nucleated RBC % Sodium 138 Potassium 4.3 Chloride 104 Carbon Dioxide 26 Anion Gap 8 BUN 7 Creatinine 0.6 Est GFR (CKD-EPI)AfAm 124.05 Est GFR (CKD-EPI)NonAf 107.03 POC Glucometer 155 Random Glucose 155 H Lactic Acid Calcium 8.7 Phosphorus 3.4 Magnesium 2.2 Iron TIBC Iron Saturation Ferritin Total Bilirubin 0.2 AST 10 L ALT 10 L Alkaline Phosphatase 142 H LD Total Creatine Kinase 26 Troponin I < 0.02 Total Protein 5.9 L Albumin 2.5 L Vitamin B12 Serum Folate TSH Free T4 11/25/18 11/25/18 11/25/18 16:50 16:50 21:54 WBC 7.4 RBC 3.12 L Hgb 8.5 L Hct 26.2 L MCV 84.0 MCH 27.3 MCHC 32.5 RDW 18.0 H Plt Count 390 D MPV 7.8 Absolute Neuts (auto) 3.6 Neutrophils % 49.1 Lymphocytes % 39.1 Monocytes % 10.5 H Eosinophils % 1.1 Basophils % 0.2 Nucleated RBC % 0 Sodium Potassium Chloride Carbon Dioxide Anion Gap BUN Creatinine Est GFR (CKD-EPI)AfAm Est GFR (CKD-EPI)NonAf POC Glucometer 308 Random Glucose Lactic Acid 1.9 Calcium Phosphorus Magnesium Iron TIBC Iron Saturation Ferritin Total Bilirubin AST ALT Alkaline Phosphatase LD Total Creatine Kinase Troponin I Total Protein Albumin Vitamin B12 Serum Folate TSH Free T4 11/25/18 11/26/18 11/26/18 23:50 02:55 06:00 WBC 6.9 RBC 3.06 L Hgb 8.4 L Hct 25.5 L MCV 83.2 MCH 27.3 MCHC 32.8 RDW 17.9 H Plt Count 391 MPV 7.6 Absolute Neuts (auto) 3.3 Neutrophils % 48.5 Lymphocytes % 38.8 Monocytes % 10.7 H Eosinophils % 1.8 Basophils % 0.2 Nucleated RBC % 0 Sodium Potassium Chloride Carbon Dioxide Anion Gap BUN Creatinine Est GFR (CKD-EPI)AfAm Est GFR (CKD-EPI)NonAf POC Glucometer 55 Random Glucose Lactic Acid Calcium Phosphorus Magnesium Iron TIBC Iron Saturation Ferritin Total Bilirubin AST ALT Alkaline Phosphatase LD Total Creatine Kinase Troponin I < 0.02 Total Protein Albumin Vitamin B12 Serum Folate TSH Free T4 11/26/18 11/26/18 06:00 06:15 WBC RBC Hgb Hct MCV MCH MCHC RDW Plt Count MPV Absolute Neuts (auto) Neutrophils % Lymphocytes % Monocytes % Eosinophils % Basophils % Nucleated RBC % Sodium 141 Potassium 3.9 Chloride 106 Carbon Dioxide 26 Anion Gap 9 BUN 4 L Creatinine 0.5 L Est GFR (CKD-EPI)AfAm 131.72 Est GFR (CKD-EPI)NonAf 113.65 POC Glucometer 108 Random Glucose 106 Lactic Acid Calcium 8.5 Phosphorus Magnesium 2.1 Iron TIBC Iron Saturation Ferritin Total Bilirubin 0.1 L AST 9 L ALT 12 L Alkaline Phosphatase 138 H LD Total 200 Creatine Kinase Troponin I < 0.02 Total Protein 6.1 L Albumin 2.5 L Vitamin B12 Serum Folate TSH 1.89 Free T4 1.04 HOSPITAL COURSE: Date of Admission:11/18/18 Date of Discharge: 11/26/18 Patient is a 48 year old female with past medical history of HTN, CVA (left sided hemiparesis), HLD, IDDM, DKA, dysphagia, gastroparesis, esophageal stricture (EGD 02/14), presented to [place] ED after being found unresponsive by the neighbor. Patient was found to be in DKA and was treated in the ICU. She was downgraded to med surg and has been stable. Her blood sugars are labile and has been followed by Dr. Luis during her hospital stay. HOSPITAL COURSE BY PROBLEM LIST: DKA (diabetic ketoacidoses) DKA resolved. Anion gap closed. blood sugars labile. Followed by endocrinology (Dr. Luis) during hospitalization. per patient she has a insulin pump at home as well as levemir and Novolog vial. She will need assistance with the insulin pump and will be sent with a referral with visiting nurse services. She has an table cover folder that she follows Dr. Mook Sargent. Patient has been admitted multiple times for DKA, and admits to non compliance of home regimen and poor follow up. Abdominal pain Patient with history of SBO with recent surgery at [facility] per patient (Marcelo at [facility]) hx of gastroparesis. She was admitted last month to [facility] and she reports having sx for small intestinal blockage. She says she has liquids at home and solids, vomits intermittently. She has a f/ u visit scheduled next week with Dr. Robertson. Swallow evaluation done and recommendations noted. patient now on minced food/ thin liquids/supplements for now with f/u by GI. She is tolerating minced diet well and has had no further vomiting. Acute respiratory failure resolved. tolerating room air. continue to monitor oxygen saturations C. difficile diarrhea on PO vanco. will need a total of 10 days of vancomycin Hypovolemic shock resolved. monitor labs, vitals. Ketoacidosis in type I diabetes mellitus Multiple admissions for DKA, hyperglycemia. blood sugars are labile. Endocrinology following. anion gap closed, not in DKA GIANCARLO (acute kidney injury) resolved. Clavicle fracture per clavicle xray 11/23, healed fractured deformity. on a immobilizer sling for pain ortho consult as an outpatient. physical therapy at home. Anemia hmg/hct downtrending. iron studies ordered as well as a b12 and folate level. hematology consulted and workup is pending. Patient agrees to follow up as an outpatient. Coffee ground emesis resolved, no nausea or vomiting Dehydration resolved, continue PO hydration Dysphagia Per speech and swallow evaluation, recommend minced diet with thin liquids. Patient sees Dr. Robertson at [facility] and has a follow up appointment with him next week. DISCHARGE PLAN: Discharge home today with [facility] for physical therapy and assistance with blood sugar monitoring. Patient has been admitted multiple times for DKA. Minutes to complete discharge: 60 Discharge Summary Reason For Visit: HPERGLYCEMIA Current Active Problems Acute respiratory failure (Acute) Anemia (Acute) C. difficile diarrhea (Acute) Hypovolemic shock (Acute) Ketoacidosis in type I diabetes mellitus (Acute) Prophylactic measure (Acute) Condition: Improved - Instructions Diet, Activity, Other Instructions: Mrs Rosas: You were admitted for DKA (diabetic Ketoacidosis) and you will be discharged home today. What is DKA? DKA is a very serious life threatening diabetes complication where the body produces excess blood acids (ketones). It occurs when there is not enought insulin in the body and can be triggered by infection or other illness. You are stable for discharge home and will be sending you a visiting nurse to help you with your new insulin pump. In the meantime, continue the insulin as follows: DIABETES: Take Levemir 8 units at 8am and at 10 pm - LEVEMIR IS THE LONG ACTING INSULIN Before meals, check your blood sugar and follow this sliding scale: If your blood sugar is: take this much insulin- NOVOLOG - SHORT ACTING 101-150 no insulin needed 151-200 2 units 201-250 3 units 251-300 4 units 301-350 5 units 351-400 6 units. IF ABOVE 400, give your self 8 units and recheck your blood sugar in 20 minutes. If still high, seek immediate medical assistance at the nearest ER. At BEDTIME, please use this sliding scale (check your blood sugar at bedtime and follow this sliding scale) If your blood sugar is: take this much insulin - NOVOLOG - SHORT ACTING 101-150 no insulin needed 151-200 no insulin needed 201-250 2 units 251-300 3 units 301-350 4 units 351-400 5 units and clal your doctor if it remains above 400. CLOSTRIDIUM DIFFICILE: You have Closterdium difficile. What is Closterdium difficile? It is a bacterim that can cause watery diarrhea and abdominal pain. We started you on Vancomycin 125mg every 6 hours. Your started this medication on 11/22/18 and will need 10 days total dosing. Therefore you will need to take it every 6 hrs (take at 6am, 2pm, 6pm and 2am) until complete on December 01 2018. Please do not skin doses even if you feel better and no longer having symptoms. Please wash your hands frequently and have dose that come in contact with you wash their hands frequently as well so that they dont get Cdiff. Cdiff can be passed from person to person and handwashing prevents contamination. ANEMIA: You were also noted to have anemia and your blood counts were low on this admission. We have done iron studies as well as other studies to determine the cause of your anemia. Some of the labs are still pending results and therefore , we recommend that you follow up with the pier master assistant by calling their office to make an appointment. It is important that you follow up. Please have your blood CBC values repeated with your primary care doctor. You told us that you have an appointment with Dr. Chaudhary this Friday. Please bring this discharge packet with you. SWALLOWING DIFFICULTY: Also Please follow up with your operator automated process specialist. You told us that you have an appointment next week. They may need to do further testing to assure that your swallowing improves. You may need additional testing. In the meantime, continue a minced diet with thin liquids and a supplement of Ensure as this will help you swallow better. Please keep your f/u visit scheduled next weak with Dr. Robertson. LEFT ARM PAIN We will be sending you a referral for a visiting nurse for PT at home for left arm pain. We recommend that you follow up with an orthopedic physician if you continue to have arm pain. Shoulder imaging done here shows an old fracture. Take Tylenol for pain and Lidocaine patches that can be purchased over the counter. Thank you for allowing us to care for you. Pippa Clark [employer] [facility] [phone] Referrals: Jalyn Boone MD [Staff Physician] - (please call for an appointment.) Disposition: VNS/HOME HEALTH CARE - Home Medications Comprehensive Discharge Medication List: Ambulatory Orders Insulin Detemir [Levemir Flextouch] 25 unit SQ DAILY #3 insuln.pen 06/20/18 Amoxicillin/Potassium Clav [Augmentin 875-125 Tablet] 1 each PO BID #14 tablet 08/13/18 Aspirin 81 mg PO DAILY #30 tab.chew 08/13/18 Aspirin [ASA -] 81 mg PO DAILY tab.chew 08/13/18 Atorvastatin Ca [Lipitor] 40 mg PO HS #30 tablet 08/13/18 Vancomycin HCl 125 mg PO QID #28 capsule 11/26/18 Problem List - Problems (1) DKA (diabetic ketoacidoses) Code(s): E13.10 - OTH DIABETES MELLITUS WITH KETOACIDOSIS WITHOUT COMA Qualifiers: Diabetes mellitus type: other specified (including MARITO) Diabetes mellitus complication detail: without coma Qualified Code(s): E13.10 - Other specified diabetes mellitus with ketoacidosis without coma (2) Abdominal pain Code(s): R10.9 - UNSPECIFIED ABDOMINAL PAIN (3) Acute respiratory failure Code(s): J96.00 - ACUTE RESPIRATORY FAILURE, UNSP W HYPOXIA OR HYPERCAPNIA (4) C. difficile diarrhea Code(s): A04.72 - ENTEROCOLITIS D/T CLOSTRIDIUM DIFFICILE, NOT SPCF RECUR (5) Hypovolemic shock Code(s): R57.1 - HYPOVOLEMIC SHOCK (6) Ketoacidosis in type I diabetes mellitus Code(s): E10.10 - TYPE 1 DIABETES MELLITUS WITH KETOACIDOSIS WITHOUT COMA (7) GIANCARLO (acute kidney injury) Code(s): N17.9 - ACUTE KIDNEY FAILURE, UNSPECIFIED (8) Clavicle fracture Code(s): S42.009A - FRACTURE OF UNSP PART OF UNSP CLAVICLE, INIT FOR CLOS FX Qualifiers: Encounter type: initial encounter Clavicle location: lateral end Fracture type: closed Fracture alignment: displaced Laterality: left Qualified Code(s): S42.032A - Displaced fracture of lateral end of left clavicle , initial encounter for closed fracture (9) Anemia Code(s): D64.9 - ANEMIA, UNSPECIFIED (10) Coffee ground emesis Code(s): K92.0 - HEMATEMESIS (11) Dehydration, mild Code(s): E86.0 - DEHYDRATION (12) Dysphagia Code(s): R13.10 - DYSPHAGIA, UNSPECIFIED Qualifiers: Dysphagia type: unspecified Qualified Code(s): R13.10 - Dysphagia, unspecified (13) Prophylactic measure Code(s): Z29.9 - ENCOUNTER FOR PROPHYLACTIC MEASURES, UNSPECIFIED This patient is new to me today: No Emergency Visit: Yes ED Registration Date: 11/18/18 Care time: The patient presented to the Emergency Department on the above date and was hospitalized for further evaluation of their emergent condition. Critical Care patient: No - Discharge Referral Referred to [facility] Med P.C.: No
[2018-11-26] MEDS: PANTOPRAZOLE SODIUM 40 MG VIAL IVPUSH SCH ×2 (09:54→10:01)
[2018-11-26] MEDS: NAPH,MB-DB/K PH,MBDB POWDER PACKET PO SCH (09:55)
--- NOTE | 2018-11-26 10:13 | PN ---
Progress Note (short form) - Note Progress Note: Feels good No new complaints Still c/o left arm pain Vital Signs Period Temp Pulse Resp BP Sys/Rapp Pulse Ox Last 24 Hr 98.4 F-99 F 78-87 20-22 120-144/60-73 99 PE: AOx3 HEENT: EOMI Neck: Supple, No JVD Lungs: CTA CVS: S1S2 Abd: Benign Ext: Mild swelling left hand CMP Sodium 141 mmol/L (136-145) 11/26/18 06:00 Potassium 3.9 mmol/L (3.5-5.1) 11/26/18 06:00 Chloride 106 mmol/L (98-107) 11/26/18 06:00 Carbon Dioxide 26 mmol/L (21-32) 11/26/18 06:00 Anion Gap 9 MMOL/L (8-16) 11/26/18 06:00 BUN 4 mg/dL (7-18) L 11/26/18 06:00 Creatinine 0.5 mg/dL (0.55-1.3) L 11/26/18 06:00 Est GFR (CKD-EPI)AfAm 131.72 11/26/18 06:00 Est GFR (CKD-EPI)NonAf 113.65 11/26/18 06:00 POC Glucometer 108 UNITS (80-120) 11/26/18 06:15 Random Glucose 106 mg/dL (74-106) 11/26/18 06:00 Lactic Acid 1.9 mmol/L (0.4-2.0) 11/25/18 16:50 Calcium 8.5 mg/dL (8.5-10.1) 11/26/18 06:00 Phosphorus 3.4 mg/dL (2.5-4.9) 11/25/18 16:12 Magnesium 2.1 mg/dL (1.8-2.4) 11/26/18 06:00 Iron 42 ug/dL (27-159) 11/25/18 10:15 TIBC 313 ug/dL (250-450) 11/25/18 10:15 Iron Saturation 13 % (15-55) L 11/25/18 10:15 Ferritin 66.7 ng/ml (8-388) 11/25/18 06:45 Total Bilirubin 0.1 mg/dL (0.2-1) L 11/26/18 06:00 AST 9 U/L (15-37) L 11/26/18 06:00 ALT 12 U/L (13-61) L 11/26/18 06:00 Alkaline Phosphatase 138 U/L (45-117) H 11/26/18 06:00 LD Total 200 U/L (84-246) 11/26/18 06:00 Creatine Kinase 26 U/L (26-192) 11/25/18 16:13 Troponin I < 0.02 ng/ml (0.00-0.05) 11/26/18 06:00 Total Protein 6.1 g/dl (6.4-8.2) L 11/26/18 06:00 Albumin 2.5 g/dl (3.4-5.0) L 11/26/18 06:00 Vitamin B12 637 pg/ml (193-986) 11/25/18 06:45 Serum Folate 12 ng/mL (3.1-17.5) 11/25/18 06:45 TSH 1.89 uIU/ml (0.358-3.74) 11/26/18 06:00 Free T4 1.04 ng/dl (0.76-1.46) 11/26/18 06:00 Current Medications Generic Name Dose Route Start Last Admin Trade Name Freq PRN Reason Stop Dose Admin Acetaminophen 650 mg 11/21/18 14:55 11/24/18 22:22 Tylenol - PO 650 mg Q6H PRN Administration Fever Or Pain Albuterol Sulfate 1 amp 11/21/18 14:55 Ventolin 0.083% Nebulizer Soln - NEB Q4H PRN SHORTNESS OF BREATH Heparin Sodium (Porcine) 5,000 unit 11/21/18 22:00 11/26/18 06:54 Heparin - SQ Not Given TID [facility] Hydromorphone HCl 2 mg 11/25/18 16:47 11/26/18 05:43 Dilaudid Vial - IVPB 2 mg Q8H PRN Administration PAIN LEVEL 6-10 Insulin Aspart 1 vial 11/21/18 16:30 11/26/18 06:54 Novolog Vial Sliding Scale - SQ Not Given TIDAC [facility] Protocol Insulin Aspart 1 vial 11/24/18 08:52 11/25/18 21:57 Novolog Vial Sliding Scale - SQ 4 units HS [facility] Administration Protocol Insulin Detemir 8 units 11/26/18 07:00 11/26/18 06:55 Levemir Vial SQ 8 units BID@0700,2200 [facility] Administration Melatonin 5 mg 11/21/18 20:41 11/24/18 22:22 Melatonin PO 5 mg HS PRN Administration INSOMNIA Metoclopramide HCl 10 mg 11/21/18 14:55 11/21/18 20:33 Reglan Injection - IVPUSH 10 mg Q6H PRN Administration NAUSEA AND/OR VOMITING Miscellaneous 1 each 11/26/18 22:00 Lidoderm Patch Removal MC DAILY@2199 [facility] Pantoprazole Sodium 40 mg 11/22/18 10:00 11/26/18 10:01 Protonix Iv IVPUSH Not Given DAILY [facility] Potassium Phos/Sodium Phos 1 packet 11/21/18 22:00 11/26/18 09:55 Phos-Nak Packet - PO 1 packet BID [facility] Administration Vancomycin HCl 125 mg 11/21/18 18:00 11/26/18 06:54 Vancomycin Oral Solution PO 125 mg Q6HPO [facility] Administration AP: DKA resolved, T1DM: fluctuating blood sugar, high in the morning. Electrolyte Imbalance Abd pain left Arm pain Fs 55 during the night Change Levemir 8 units in the morning and 6 at night BGM Q ACHS and 3 AM NOvolog SS Q ACHS SS of hypoglycemia and response to it discussed Discussed need to take Insulin , zena basal Insulin as prescribed to prevent further episodes of hypoglycemia. Pt verbalizes understanding F/uu with her Endo within a week. Will f/u
--- NOTE | 2018-11-26 11:02 | PN ---
Progress Note, Physician History of Present Illness: stable no new issues - Current Medication List Current Medications: Active Medications Acetaminophen (Tylenol -) 650 mg PO Q6H PRN PRN Reason: Fever Or Pain Last Admin: 11/24/18 22:22 Dose: 650 mg Albuterol Sulfate (Ventolin 0.083% Nebulizer Soln -) 1 amp NEB Q4H PRN PRN Reason: SHORTNESS OF BREATH Heparin Sodium (Porcine) (Heparin -) 5,000 unit SQ TID [facility] Last Admin: 11/26/18 06:54 Dose: Not Given Hydromorphone HCl (Dilaudid Vial -) 2 mg IVPB Q8H PRN PRN Reason: PAIN LEVEL 6-10 Last Admin: 11/26/18 05:43 Dose: 2 mg Insulin Aspart (Novolog Vial Sliding Scale -) 1 vial SQ TIDAC [facility]; Protocol Last Admin: 11/26/18 06:54 Dose: Not Given Insulin Aspart (Novolog Vial Sliding Scale -) 1 vial SQ HS [facility]; Protocol Last Admin: 11/25/18 21:57 Dose: 4 units Insulin Detemir (Levemir Vial) 8 units SQ DAILY@0700 [facility] Insulin Detemir (Levemir Vial) 6 units SQ HS [facility] Melatonin (Melatonin) 5 mg PO HS PRN PRN Reason: INSOMNIA Last Admin: 11/24/18 22:22 Dose: 5 mg Metoclopramide HCl (Reglan Injection -) 10 mg IVPUSH Q6H PRN PRN Reason: NAUSEA AND/OR VOMITING Last Admin: 11/21/18 20:33 Dose: 10 mg Miscellaneous (Lidoderm Patch Removal) 1 each MC DAILY@2200 [facility] Pantoprazole Sodium (Protonix Iv) 40 mg IVPUSH DAILY [facility] Last Admin: 11/26/18 10:01 Dose: Not Given Potassium Phos/Sodium Phos (Phos-Nak Packet -) 1 packet PO BID [facility] Last Admin: 11/26/18 09:55 Dose: 1 packet Vancomycin HCl (Vancomycin Oral Solution) 125 mg PO Q6HPO [facility] Last Admin: 11/26/18 06:54 Dose: 125 mg - Objective Vital Signs: Vital Signs Temperature 99.3 F 11/26/18 10:00 Pulse Rate 80 11/26/18 10:00 Respiratory Rate 18 11/26/18 10:00 Blood Pressure 123/60 11/26/18 10:00 O2 Sat by Pulse Oximetry (%) 99 11/25/18 21:00 Constitutional: Yes: No Distress, Calm Cardiovascular: Yes: Regular Rate and Rhythm Respiratory: Yes: Regular, CTA Bilaterally Gastrointestinal: Yes: Normal Bowel Sounds, Soft Musculoskeletal: Yes: WNL Extremities: Yes: WNL Neurological: Yes: Alert, Oriented Labs: CBC, BMP 11/26/18 06:00 11/26/18 06:00 INR, PTT INR 0.94 (0.83-1.09) 11/19/18 05:30 Assessment/Plan Problem List - Problems (1) Acute respiratory failure Code(s): J96.00 - ACUTE RESPIRATORY FAILURE, UNSP W HYPOXIA OR HYPERCAPNIA (2) Ketoacidosis in type I diabetes mellitus Code(s): E10.10 - TYPE 1 DIABETES MELLITUS WITH KETOACIDOSIS WITHOUT COMA (3) GIANCARLO (acute kidney injury) Code(s): N17.9 - ACUTE KIDNEY FAILURE, UNSPECIFIED (4) Abdominal pain Code(s): R10.9 - UNSPECIFIED ABDOMINAL PAIN (5) DKA (diabetic ketoacidoses) Code(s): E13.10 - OTH DIABETES MELLITUS WITH KETOACIDOSIS WITHOUT COMA Qualifiers: Diabetes mellitus type: other specified (including MARITO) Diabetes mellitus complication detail: without coma Qualified Code(s): E13.10 - Other specified diabetes mellitus with ketoacidosis without coma (6) Cerebrovascular accident (CVA) Code(s): I63.9 - CEREBRAL INFARCTION, UNSPECIFIED Qualifiers: CVA mechanism: unspecified Qualified Code(s): I63.9 - Cerebral infarction, unspecified (7) Diabetes mellitus, insulin dependent (IDDM), uncontrolled Code(s): E10.65 - TYPE 1 DIABETES MELLITUS WITH HYPERGLYCEMIA (8) Leukocytosis Code(s): D72.829 - ELEVATED WHITE BLOOD CELL COUNT, UNSPECIFIED Assessment/Plan Fever Leukocytosis - resolved Diarrhea - C.diff Ag +/ toxin negative DKA Respiratory failure s/p extubation IDDM Hx of CVA HTN continue current mgmtt stable
[2018-11-26 11:39] VITALS: BP 123/60; PULSE 80; TEMP 99.3
--- NOTE | 2018-11-26 12:18 | PN ---
Progress Note, BELT NOTCHER - Note Progress Note: Selected Entries 11/19/17 11/19/17 11/19/17 02:00 06:00 10:00 Breakfast Supper Temperature 98.8 F 98.4 F 98.6 F 11/19/17 11/19/17 11/19/17 15:08 19:05 19:08 Breakfast Supper 25% Temperature 98.4 F 98.5 F 11/19/17 11/20/17 11/20/17 20:05 06:04 09:00 Breakfast Supper Temperature 98.7 F 98.1 F 98.2 F 11/20/17 11/25/18 11/25/18 09:44 06:00 11:16 Breakfast 50% 50% Supper 100% Temperature 11/25/18 11/26/18 11/26/18 20:16 06:00 09:23 Breakfast 75% Supper 50% Temperature 98.6 F 11/26/18 10:00 Breakfast Supper Temperature 99.3 F Laboratory Tests 11/26/18 06:00 WBC 6.9 Case reviewed with CEMETERY LABORER. Good tolerance reported of present diet. Pt to remain on minced food/thin liquids/supplements for now with f/u by GI. She has a f/u visit scheduled next weak with Dr. Robertson.
[2018-11-26] MEDS ORDERED: LIDOCAINE PATCH REMOVAL MC SCH (22:00)
[2018-11-27] MEDS ORDERED: INSULIN (LEVEMIR) 100 UNITS/ML UNITS SQ SCH (07:00)
[2018-11-28 18:14] LABS: FREE KAPPA,SERUM 16.3 mg/L (3.3-19.4)
== END 2018-11-26 11:53 | disposition home health service (06) | DRG 871 ==
LOC: FER 12:24 → JICU 15:27 → J7W 11-21 14:53
PROVIDERS: ADMIT Internal Medicine; ATTEND Nurse Practitioner Family
PROC: 5A1945Z Respiratory Ventilation, 24-96 Consecutive Hours (ICD-10-PCS; principal; 2018-11-18)
PROC: 0BH17EZ Insertion of Endotracheal Airway into Trachea, Via Natural or Artificial Opening (ICD-10-PCS; 2018-11-18)
PROC: 05HM33Z Insertion of Infusion Device into Right Internal Jugular Vein, Percutaneous Approach (ICD-10-PCS; 2018-11-18)
DX: A41.9 Sepsis, unspecified organism (principal); E13.10 Other specified diabetes mellitus with ketoacidosis without coma; J96.01 Acute respiratory failure with hypoxia; R57.1 Hypovolemic shock; E87.2 Acidosis; N17.9 Acute kidney failure, unspecified; A04.72 Enterocolitis due to Clostridium difficile, not specified as recurrent; I69.354 Hemiplegia and hemiparesis following cerebral infarction affecting left non-dominant side; E87.1 Hypo-osmolality and hyponatremia; D72.829 Elevated white blood cell count, unspecified; I10 Essential (primary) hypertension; E86.0 Dehydration; E87.6 Hypokalemia; E78.5 Hyperlipidemia, unspecified; E87.5 Hyperkalemia
CPT/HCPCS: 31500; 36415; 36600; 71045-TC-FY; 73000-TC-LT-FY; 73130-TC-LT-FY; 74018-TC-FY; 80048; 80053; 80307; 81003; 82009; 82375; 82550; 82607; 82728; 82746; 82784; 82803; 82947; 82962; 83010; 83050; 83540; 83550; 83605; 83615; 83735; 83883; 84100; 84155; 84165; 84439; 84443; 84484; 84703; 85025; 85044; 85610; 86334; 87040; 87086; 87324; 87449; 93005; 94002; 97116-GP; 97162-GP; 99285-25; J0131; J1644; J3480; J7030

== ENCOUNTER 2018-12-21 17:41 | Inpatient (IN) | payer OTHER ==
--- NOTE | 2018-12-21 17:44 | PDOC ---
History of Present Illness - General Chief Complaint: Vomiting/Diarrhea Stated Complaint: vomiting,diarrhea Time Seen by Provider: 12/21/18 17:43 - History of Present Illness Initial Comments: 12/21/18 17:43 Ms. Rosas is a 48 yo female w/ pmh of DM, anemia, and c. difficile with multiple admissions for DKA 2/2 medication non-compliance (last 11/18-11/26) with medications who presents for evaluation of Nausea, Vomiting, Diarrhea, and abdominal pain since 12/18. Patient reports she has had multiple episodes of vomiting and diarrhea. Cannot elicit if there was blood in either. Patient reports she is supposed to take levemir 10mg BID with additional sliding scale insulin. Finger stick upon arrival 439. Patient also complaining of L shoulder pain following a fall earlier today. Denies any LOC or head injury. The patient denies chest pain, shortness of breath, headache and dizziness. Denies fever, chills, and constipation. Denies dysuria, frequency, urgency and hematuria. Past History - Past Medical History Allergies/Adverse Reactions: Allergies Allergy/AdvReac Type Severity Reaction Status Date / Time No Known Allergies Allergy Verified 12/21/18 17:43 Home Medications: Ambulatory Orders Insulin Detemir [Levemir Flextouch] 25 unit SQ DAILY #3 insuln.pen 06/20/18 Amoxicillin/Potassium Clav [Augmentin 875-125 Tablet] 1 each PO BID #14 tablet 08/13/18 Aspirin 81 mg PO DAILY #30 tab.chew 08/13/18 Aspirin [ASA -] 81 mg PO DAILY tab.chew 08/13/18 Atorvastatin Ca [Lipitor] 40 mg PO HS #30 tablet 08/13/18 Vancomycin HCl 125 mg PO QID #28 capsule 11/26/18 Anemia: No Asthma: No Cancer: No Cardiac Disorders: No CVA: Yes (JUL 2017) COPD: No CHF: No Dementia: No Diabetes: Yes (IDDM) GI Disorders: Yes (DYSPHAGIA) Disorders: No HTN: No Hypercholesterolemia: Yes Liver Disease: No Seizures: No Thyroid Disease: No - Surgical History Abdominal Surgery: No Appendectomy: No Cardiac Surgery: No Cholecystectomy: Yes (AGE 19) Lung Surgery: No Neurologic Surgery: No Orthopedic Surgery: Yes (L shoulder cyst removed) - Immunization History Td Vaccination: Yes Immunization Up to Date: Yes - Suicide/Smoking/Psychosocial Hx Smoking Status: Yes Smoking History: Unknown if ever smoked Years of Tobacco Use: 15 Have you smoked in the past 12 months: No Number of Cigarettes Smoked Daily: 8 'Breaking Loose' booklet given: 08/03/18 Hx Alcohol Use: No Drug/Substance Use Hx: No Substance Use Type: Marijuana Hx Substance Use Treatment: No Review of Systems - Review of Systems Comments:: 12/21/18 17:43 GENERAL/CONSTITUTIONAL: No fever or chills. No weakness. HEAD, EYES, EARS, NOSE AND THROAT: No change in vision. No ear pain or discharge. No sore throat. CARDIOVASCULAR: No chest pain or shortness of breath RESPIRATORY: No cough, wheezing, or hemoptysis. GASTROINTESTINAL: +N/V/D and abdominal pain as described. GENITOURINARY: No dysuria, frequency, or change in urination. MUSCULOSKELETAL: No joint or muscle swelling or pain. No neck or back pain. SKIN: No rash NEUROLOGIC: No headache, vertigo, loss of consciousness, or change in strength/ sensation. ENDOCRINE: No increased thirst. No abnormal weight change HEMATOLOGIC/LYMPHATIC: No anemia, easy bleeding, or history of blood clots. ALLERGIC/IMMUNOLOGIC: No hives or skin allergy. *Physical Exam - Physical Exam Comments: 12/21/18 17:44 GENERAL: Awake, alert, and fully oriented, in no acute distress HEAD: No signs of trauma, normocephalic, atraumatic EYES: PERRLA, EOMI, sclera anicteric, conjunctiva clear ENT: Auricles normal inspection, hearing grossly normal, nares patent, oropharynx clear without exudates. Moist mucosa NECK: Normal ROM, supple, no lymphadenopathy, JVD, or masses LUNGS: No distress, speaks full sentences, clear to auscultation bilaterally HEART: Regular rate and rhythm, normal S1 and S2, no murmurs, rubs or gallops, peripheral pulses normal and equal bilaterally. ABDOMEN: +Diffuse abdominal TTP. Soft, normoactive bowel sounds. No guarding, no rebound. No masses EXTREMITIES: +L shoulder TTP however normal inspection, Normal range of motion, no edema. No clubbing or cyanosis. NEUROLOGICAL: Cranial nerves II through XII grossly intact. Normal speech, normal gait, no focal sensorimotor deficits SKIN: Warm, Dry, normal turgor, no rashes or lesions noted. ED Treatment Course - LABORATORY CBC & Chemistry Diagram: 12/21/18 18:25 12/21/18 18:10 Medical Decision Making - Medical Decision Making 12/21/18 18:52 Ms. Rosas is a 48 yo female w/ pmh as described who presents for evaluation of symptoms concerning for DKA vs. viral illness. Patient evaluation started with CBC/CMP/Blood Cx/UA/UCx/lactate/acetone and patient given zofran / morphine for symptomatic relief. Patient signed out to Dr. De La Vega for further evaluation. *DC/Admit/Observation/Transfer Diagnosis at time of Disposition: Hyperglycemia - Discharge Dispostion Condition at time of disposition: Fair - Referrals Referrals: Braden Chaudhary MD [Primary Care Provider] - - Patient Instructions - Post Discharge Activity
[2018-12-21] MEDS ORDERED: SODIUM CHLORIDE 1,000 ML IV STA ×2 (17:50→18:02)
--- NOTE | 2018-12-21 18:04 | PDOC ---
Attending Attestation - Resident Resident Name: Girish Tariq - ED Attending Attestation I have performed the following: I have examined & evaluated the patient, The case was reviewed & discussed with the resident, I agree w/resident's findings & plan, Exceptions are as noted - HPI HPI: 12/21/18 18:03 48 year old female with past medical history of type 1 diabetes with frequent diabetic ketoacidosis, stroke and abdominal surgery presents with nausea vomiting diarrhea for 3 days. Patient reports that she typically has elevated glucose in the setting of an illness. She has multiple episodes of nausea and diarrhea. No fevers. Patient reports that she had taken some insulin this morning but her glucose is noted to be above 400 here in the ER. Patient denies chest pain. - Physicial Exam PE: 12/21/18 18:21 GENERAL: Awake, alert, and fully oriented, however, ill-appearing, tachypneic, tachycardic. HEAD: No signs of trauma EYES: EOMI, sclera anicteric, conjunctiva clear ENT: Auricles normal inspection, hearing grossly normal, nares patent, dry mucous membranes NECK: Normal ROM, supple LUNGS: Breath sounds equal, clear to auscultation bilaterally. No wheezes, and no crackles HEART: Regular rate and rhythm, normal S1 and S2, no murmurs, rubs or gallops. + tachycardic ABDOMEN: Soft, generalized discomfort on palpation, No guarding, no rebound. No masses EXTREMITIES: Normal range of motion, no edema. No clubbing or cyanosis. No cords, erythema, or tenderness NEUROLOGICAL: Cranial nerves II through XII grossly intact. SKIN: Warm, Dry, normal turgor, no rashes or lesions noted. - Medical Decision Making 12/21/18 18:23 Vital Signs Temp Pulse Resp BP Pulse Ox 97.5 F L 120 H 19 128/89 100 12/21/18 17:42 12/21/18 17:42 12/21/18 17:42 12/21/18 17:42 12/21/18 17:42 This is a 48-year-old female patient with multiple visits immersed partner for diabetic ketoacidosis. I suspect the patient likely a gastroenteritis leading to her diabetic ketoacidosis. We'll need to obtain blood work including acetone. We'll give IV fluids and likely initiate insulin drip. At this time, patient has abdominal cramping. We'll need serial abdominal exams at this time as this may be a consequence of dehydration and from her nausea vomiting and diarrhea. However, if the abdominal pain persists, should consider CT abdomen and pelvis. Pt has prior hx of C. Diff. Should consider obtaining stool samples. Patient also reports that she had fell earlier today and believes that she hit her left clavicle. Her is no gross deformity of the clavicle but she will need an x-ray. However, the patient is too ill at this time to go for formal clavicle x-ray. We'll obtain a portable chest x-ray obtain a formal clavicle x-ray when her symptoms improved. The patient should be admitted to the hospital.
[2018-12-21] MEDS ORDERED: morphine CARPU-JECT 4 MG/1 ML DISP.SYRIN IVPUSH ONE (18:51)
[2018-12-21] MEDS ORDERED: ONDANSETRON 4 MG/2 ML VIAL IVPUSH ONE (18:51)
[2018-12-21] MEDS ORDERED: morphine SULFATE 4 MG/ML VIAL ONE (18:57)
[2018-12-21] MEDS ORDERED: ONDANSETRON 4 MG/2 ML VIAL ONE (18:57)
[2018-12-21 19:12] LABS: HEMATOCRIT 38.1 % (32.4-45.2); HEMOGLOBIN 12.7 GM/dl (10.7-15.3); MCH 28.6 pg (25.7-33.7); MCHC 33.3 g/dl (32.0-36.0); MEAN PLT VOLUME 8.1 fl (7.5-11.1); PLATELET COUNT 609 K/MM3 (134-434); RBC 4.43 M/mm3 (3.60-5.2); RDW 16.8 % (11.6-15.6); WHITE BLOOD COUNT 21.9 K/mm3 (4.0-10.8)
[2018-12-21 19:29] LABS: ALBUMIN 4.3 g/dl (3.4-5.0); BILIRUBIN,TOTAL 1.1 mg/dl (0.2-1); CALCIUM 10.8 mg/dl (8.5-10); CREATININE 1.3 mg/dl (0.55-1.3); POTASSIUM 4.2 mmol/L (3.5-5.1); TOT PROT 8.3 g/dl (6.4-8.2)
[2018-12-21] MEDS ORDERED: INSULIN REGULAR HUMAN 100 UNITS/ML *VIAL IVPUSH ONE (19:44)
[2018-12-21] MEDS ORDERED: INSULIN REGULAR 100 UNITS in SODIUM CHLORIDE 99 ML IVPB SCH (19:45)
--- NOTE | 2018-12-21 19:50 | PDOC ---
*Physical Exam - Vital Signs Last Vital Signs Temp Pulse Resp BP Pulse Ox 97.5 F L 120 H 19 128/89 100 12/21/18 17:42 12/21/18 17:42 12/21/18 17:42 12/21/18 17:42 12/21/18 17:42 ED Treatment Course - LABORATORY CBC & Chemistry Diagram: 12/21/18 18:25 12/21/18 19:13 - ADDITIONAL ORDERS Additional order review: Laboratory Results 12/21/18 12/21/18 12/21/18 19:13 18:25 18:25 Sodium 135 L Potassium 4.2 Chloride 97 L Carbon Dioxide 14 L Anion Gap 24 H BUN 34.0 H Creatinine 1.3 Est GFR (CKD-EPI)AfAm 55.79 Est GFR (CKD-EPI)NonAf 48.13 Random Glucose 336 H* Calcium 10.8 H Total Bilirubin 1.1 H AST 16 ALT 19 Alkaline Phosphatase 115 Creatine Kinase 24 L Troponin I Total Protein 8.3 H Albumin 4.3 Acetone, Qual Positive small 1+ H 12/21/18 12/21/18 18:25 18:10 Sodium Cancelled Potassium Cancelled Chloride Cancelled Carbon Dioxide Cancelled Anion Gap Cancelled BUN Cancelled Creatinine Cancelled Est GFR (CKD-EPI)AfAm Cancelled Est GFR (CKD-EPI)NonAf Cancelled Random Glucose Cancelled Calcium Cancelled Total Bilirubin Cancelled AST Cancelled ALT Cancelled Alkaline Phosphatase Cancelled Creatine Kinase Troponin I < 0.03 Total Protein Cancelled Albumin Cancelled Acetone, Qual 12/21/18 18:25 RBC 4.43 MCV 86.0 MCHC 33.3 RDW 16.8 H D MPV 8.1 Neutrophils % No Result Required. Lymphocytes % No Result Required. - Medications Given in the ED: ED Medications Discontinued Medications Generic Name Dose Route Start Last Admin Trade Name Freq PRN Reason Stop Dose Admin Sodium Chloride 1,000 mls @ 1,000 mls/hr 12/21/18 17:50 12/21/18 18:22 Normal Saline - IV 12/21/18 18:49 1,000 mls/hr ASDIR STA Administration Morphine Sulfate 4 mg 12/21/18 18:51 12/21/18 19:10 Morphine Injection - IVPUSH 12/21/18 18:52 4 mg ONCE ONE Administration Ondansetron HCl 4 mg 12/21/18 18:51 12/21/18 19:09 Zofran Injection IVPUSH 12/21/18 18:52 4 mg ONCE ONE Administration Progress Note - Progress Note Progress Note: Care of this patient was transferred to dc from Dr. Way at 1900 hrs. Patient was seen initially by the resident. Patient is a 48-year-old type I diabetic who is noncompliant and comes in intermittently in DKA. Patient comes in complaining of nausea and vomiting 2 days. Patient sugar is 336 on fingerstick. Patient's labs are pending. 19:30 Patient's labs are back her white count is 21.9 however she is afebrile and this is most likely secondary to her nausea vomiting and DKA Patient has a high anion gap metabolic acidosis. Patient's glucose is 336 Patient is received 1 L fluid is on her second liter. Patient started on insulin drip 0.1 units per KG per hour and was also given a bolus of 0.1 units per KG. Patient will require an admission to the [facility] Diagnosis at time of Disposition: Hyperglycemia Diabetes mellitus, insulin dependent (IDDM), uncontrolled Qualifiers: Glycemic state: with hyperglycemia Qualified Code(s): E10.65 - Type 1 diabetes mellitus with hyperglycemia DKA (diabetic ketoacidoses) Qualifiers: Diabetes mellitus type: type 1 Diabetes mellitus complication detail: without coma Qualified Code(s): E10.10 - Type 1 diabetes mellitus with ketoacidosis without coma - Discharge Dispostion Condition at time of disposition: Fair Decision to Admit order: Yes - Referrals Referrals: Braden Chaudhary MD [Primary Care Provider] - - Patient Instructions - Post Discharge Activity
[2018-12-21] MEDS ORDERED: INSULIN REGULAR HUMAN 100 UNITS/ML *VIAL ONE (19:59)
[2018-12-21] MEDS ORDERED: PIPERACILLIN/TAZOB 4.5 GM 4.5 GM in DEXTROSE 5%-WATER 100 ML IVPB ONE (20:34)
[2018-12-21 21:11] LABS: PLATELET ESTIMATE INCREASED
[2018-12-21] MEDS ORDERED: DEXTROSE 5%-0.45% SALINE 1,000 ML IV SCH (22:00)
--- NOTE | 2018-12-21 23:00 | CONSULT ---
Consultation: REQUESTING PROVIDER: ER/Hospitalist CONSULT SERVICE: ICU Resident HISTORY OF PRESENT ILLNESS: 48yo F with h/o CVA (L sided hemiparesis), T2DM, multiple admissions for DKA , HTN, HLD, and recent hospitalization at [facility] in September 2018 for SBO who presents to [place] with complaint of 3 days worth of nausea, NB/NB vomiting , diarrhea, and abdominal pain. Pt reports today she came in because she had a mechanical fall today landing on her L upper extremity. Pt also reports having a fever of 103 yesterday (12/20). Pt endorses general malaise, anorexia, dizziness as well. Pt was started on DKA protocol in the [facility] ED and abdominal CT was obtained due to her recent surgery, prior C. Diff infection (reported by pt), and significant leukocytosis of 21,000. Upon arrival to the ICU at [facility] pt has NB/NB vomiting in mild distress complaining of nausea. Pt reports having poor venous access and how she usually needs a picc line placement during her hospitalizations REVIEW OF SYSTEMS: As per HPI PHYSICAL EXAMINATION Vital Signs 12/21/18 12/21/18 12/21/18 17:42 20:08 21:43 Temperature 97.5 F L Pulse Rate 120 H Pulse Rate [ 100 H 95 H Apical] Respiratory 19 18 19 Rate Blood Pressure 128/89 Blood Pressure 151/89 [Arm] O2 Sat by Pulse 100 100 98 Oximetry (%) GENERAL: Mild distress, Awake, alert, and fully oriented HENT: NC/AT, EOMI, ADAM sclera anicteric, dry mucosa NECK: No JVD LUNGS: CTA bilaterally. No wheezes, and no crackles. No accessory muscle use. HEART: Tachycardic with regular rhythm, normal S1 and S2 without murmur ABDOMEN: Soft, nondistended, surgical scar noted completely healed, moderate diffuse tenderness, hypoactive BS, no guarding. MUSCULOSKELETAL: No CVA tenderness. EXTREMITIES: 2+ DP pulses, warm, well-perfused. No calf tenderness. No peripheral edema. PSYCHIATRIC: Cooperative. Good eye contact. Appropriate mood and affect. SKIN: Warm, dry, normal turgor, no rashes, excoriations noted on arms Laboratory Results 12/21/18 12/21/18 12/21/18 18:10 18:25 18:25 WBC 21.9 H RBC 4.43 Hgb 12.7 Hct 38.1 MCV 86.0 MCH 28.6 MCHC 33.3 RDW 16.8 H D Plt Count 609 H MPV 8.1 Absolute Neuts (auto) 18.1 Neutrophils % No Result Required. Neutrophils % (Manual) 82.0 Band Neutrophils % 1.0 Lymphocytes % No Result Required. Lymphocytes % (Manual) 14.0 Monocytes % (Manual) 3 L Platelet Estimate Increased Sodium Cancelled Potassium Cancelled Chloride Cancelled Carbon Dioxide Cancelled Anion Gap Cancelled BUN Cancelled Creatinine Cancelled Est GFR (CKD-EPI)AfAm Cancelled Est GFR (CKD-EPI)NonAf Cancelled POC Glucometer Random Glucose Cancelled Lactic Acid Calcium Cancelled Total Bilirubin Cancelled AST Cancelled ALT Cancelled Alkaline Phosphatase Cancelled Creatine Kinase Troponin I < 0.03 Total Protein Cancelled Albumin Cancelled Acetone, Qual 12/21/18 12/21/18 12/21/18 18:25 18:25 18:56 WBC RBC Hgb Hct MCV MCH MCHC RDW Plt Count MPV Absolute Neuts (auto) Neutrophils % Neutrophils % (Manual) Band Neutrophils % Lymphocytes % Lymphocytes % (Manual) Monocytes % (Manual) Platelet Estimate Sodium Potassium Chloride Carbon Dioxide Anion Gap BUN Creatinine Est GFR (CKD-EPI)AfAm Est GFR (CKD-EPI)NonAf POC Glucometer Random Glucose Lactic Acid 3.7 H* Calcium Total Bilirubin AST ALT Alkaline Phosphatase Creatine Kinase 24 L Troponin I Total Protein Albumin Acetone, Qual Positive small 1+ H 12/21/18 12/21/18 12/21/18 19:13 21:16 22:18 WBC RBC Hgb Hct MCV MCH MCHC RDW Plt Count MPV Absolute Neuts (auto) Neutrophils % Neutrophils % (Manual) Band Neutrophils % Lymphocytes % Lymphocytes % (Manual) Monocytes % (Manual) Platelet Estimate Sodium 135 L Potassium 4.2 Chloride 97 L Carbon Dioxide 14 L Anion Gap 24 H BUN 34.0 H Creatinine 1.3 Est GFR (CKD-EPI)AfAm 55.79 Est GFR (CKD-EPI)NonAf 48.13 POC Glucometer 83 133 Random Glucose 336 H* Lactic Acid Calcium 10.8 H Total Bilirubin 1.1 H AST 16 ALT 19 Alkaline Phosphatase 115 Creatine Kinase Troponin I Total Protein 8.3 H Albumin 4.3 Acetone, Qual Active Medications Generic Name Dose Route Start Last Admin Trade Name Freq PRN Reason Stop Dose Admin Aspirin 81 mg 12/22/18 10:00 Asa - PO DAILY [facility] Atorvastatin Calcium 40 mg 12/22/18 22:00 Lipitor - PO HS [facility] Insulin Human Regular 100 100 mls @ 5.8 mls/hr 12/21/18 19:45 12/21/18 22:22 units/ Sodium Chloride IVPB 0.05 units/kg/hr TITR [facility] 2.9 mls/hr Titration Protocol 0.1 UNITS/KG/HR Dextrose/Sodium Chloride 1,000 mls @ 125 mls/hr 12/21/18 22:00 12/21/18 21:20 D5-1/2ns - IV 125 mls/hr ASDIR [facility] Administration ASSESSMENT/PLAN: Diabetic Ketoacidosis Lactic acidosis Leukocytosis Acute renal insufficiency S/p Mechanical fall T1DM HLD --DKA Criteria confirmed 09/01: (1) >250 BG (2) Anion gap 24 (3) HCO 14 (4) Unknown keturia (5) VBG/ABG unobtained --Pt with multiple episodes of DKA likely noncompliance --Insulin gtt 0.1 started --NS+20KCl @100cc/hr --BGM q1h --BMP q2h --If glucose drops below 250 will change insulin gtt to 0.05 and add dextrose to fluid formulation --Obtan VBG and trend lactate --Obtain UA --Leukocytosis and lactic acidosis etiology unclear --Differential includes: Post-op exlap vs. DKA reactivity vs. low threshold for infection --CT A/P reviewed without any obvious inflammatory areas or abscesses; awaiting official read --Pt received one dose Flagyl for intrabdominal coverage --Cr increased 1.3 form baseline 0.6-0.7 --Likely prerenal due to osmotic activity from hyperglycemic state --Monitor Cr and continue IVF --Avoid nephrotoxic agents --CXR reviewed with view of L shoulder and AC joint: Only healed L clavicular fracture unchanged from prior XR; AC joint intact FEN: Fluids: NS+20mEq KCl@100cc/hr given pt's severe hypovolemia Electrolyte abnormalities: None currently Nutrition: NPO until anion gap corrected and tolerating food PPX: DVT - Heparin TID GI - Not indicated Dispo: ICU monitoring Nikita Desir, DO - IM PGY-2 Visit type - Emergency Visit Emergency Visit: Yes ED Registration Date: 12/21/18 Care time: The patient presented to the Emergency Department on the above date and was hospitalized for further evaluation of their emergent condition. - New Patient This patient is new to me today: Yes Date on this admission: 12/22/18 - Critical Care Critical Care patient: Yes Total Critical Care Time (in minutes): 55 Critical Care Statement: The care of this patient involved high complexity decision making to prevent further life threatening deterioration of the patient 's condition and/or to evaluate & treat vital organ system(s) failure or risk of failure.
--- NOTE | 2018-12-21 23:11 | HP ---
Admitting History and Physical - Primary Care Physician PCP: Braden Chaudhary - Admission Chief Complaint: N/V/D/abd pain History of Present Illness: 48 year old female with past medical history of HTN, CVA (left sided hemiparesis ), HLD, IDDM, DKA resulting in multiple admissions, dysphagia, gastroparesis, esophageal stricture (EGD 02/14), c/diff (10/2018), SBO September 2018 (s/p SB resection @ [facility] as per pt report) presented to [place] ED on the afternoon of 12/21 with complaints of N/V/D/abd pain x 3 days. Associated symptoms include malaise, dizziness, fever (temp 103 on 12/20), chills, anorexia, urinary frequency and dysuria. Due to the severity of her symptoms pt sustained a mechanical fall, today 12/21, while at home. She landed on her left upper extremity and now reports pain and decreased ROM in affected extremity. Pt's clara decided to transport her via car to ED for evaluation due to worsening mental status. Upon arrival, BG level 439mg/dl, nausea/vomiting treated with Zofran, and morphine administered for Left arm pain. Initial Vitals: T 97.5, HR 120, RR 19, BP 128/89, O2 sat 100%. Labs: WBC 21.9, PLT 609, lactate 3.7 Trop x 1 negative, serum acetone +1 Pt given reg insulin 6units and started on infusion at 5.8 u/hr. 2L fluid IV bolus + maintenance fluids given. Zosyn + flagyl given for leukocytosis with recent abd surgery and c/diff infection/ Radiology study ordered for LUE pain and CT scan for acute abd pain. Pt will be admitted to ICU for intensive management of possible sepsis and DKA. 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: CVA, Migraine Cardiovascular: Yes: Hyperlipdemia Gastrointestinal: Yes: Other (Gastroparesis) ...LMP: 04/14/13 Musculoskeletal: Yes: Chronic low back pain Endocrine: Yes: Diabetes Mellitus - Past Surgical History Past Surgical History: Yes: Cholecystectomy Additional Past Surgical History: small bowel resection - Smoking History Smoking history: Current every day smoker Have you smoked in the past 12 months: Yes Aproximately how many cigarettes per day: 10 - Alcohol/Substance Use Hx Alcohol Use: No History of Substance Use: reports: None - Social History Usual Living Arrangement: Yes: With Significant Other ADL: Independent Occupation: Unemployed History of Recent Travel: No Home Medications - Allergies Allergies/Adverse Reactions: Allergies Allergy/AdvReac Type Severity Reaction Status Date / Time No Known Allergies Allergy Verified 12/21/18 17:43 - Home Medications Home Medications: Ambulatory Orders Insulin Detemir [Levemir Flextouch] 25 unit SQ DAILY #3 insuln.pen 06/20/18 Aspirin 81 mg PO DAILY #30 tab.chew 08/13/18 Aspirin [ASA -] 81 mg PO DAILY tab.chew 08/13/18 Atorvastatin Ca [Lipitor] 40 mg PO HS #30 tablet 08/13/18 Family Disease History - Family Disease History Family Disease History: Heart Disease: Father (cad), Other: Mother (Alive (70) well) Review of Systems - Review of Systems Constitutional: reports: Chills, Fever, Lethargy, Loss of Appetite, Weakness Eyes: reports: No Symptoms HENT: reports: No Symptoms Neck: reports: No Symptoms Cardiovascular: reports: No Symptoms Respiratory: reports: No Symptoms Gastrointestinal: reports: Abdominal Pain, Diarrhea, Nausea, Vomiting Genitourinary: reports: Dysuria, Frequency Breasts: reports: No Symptoms Reported Musculoskeletal: reports: No Symptoms Integumentary: reports: No Symptoms Neurological: reports: Dizziness, Weakness Endocrine: reports: No Symptoms Hematology/Lymphatic: reports: No Symptoms Psychiatric: reports: No Symptoms Physical Examination Vital Signs: Vital Signs Temperature 97.5 F L 12/21/18 17:42 Pulse Rate 95 H 12/21/18 21:43 Respiratory Rate 12/21/18 21:43 Blood Pressure 151/89 12/21/18 21:43 O2 Sat by Pulse Oximetry (%) 98 12/21/18 21:43 Constitutional: Yes: Mild Distress, Pallor, Thin, Other (ill appearing Female) Eyes: Yes: PERRL HENT: Yes: Atraumatic, Normocephalic Neck: Yes: Supple Cardiovascular: Yes: Tachycardia Respiratory: Yes: Regular, CTA Bilaterally Gastrointestinal: Yes: Normal Bowel Sounds, Soft, Tenderness (diffuse) ...Rectal Exam: Yes: Deferred Musculoskeletal: Yes: Muscle Weakness (LUE) Extremities: Yes: WNL Edema: No Peripheral Pulses WNL: Yes Peripheral Pulses: Left Radial: 2+, Right Radial: 2+, Left Doralis Pedis: 2+, Right Dorsalis Pedis: 2+ Integumentary: Yes: WNL Neurological: Yes: Oriented (Lethargic), Weakness ...Motor Strength: LUE (decreased) Psychiatric: Yes: Oriented Labs: CBC, BMP 12/21/18 18:25 12/21/18 19:13 Imaging - Results Chest X-ray: Report Reviewed (CXR 12/21/2018 Impression: Old left healed clavicular fx. AC joint intact) Cat Scan: Report Reviewed (CT abd and pelvis 12/21/2018 Impression:In comparison to a prior exam of 08/10/2018 there is possible interval development of mild concentric rectosigmoid wall thickening ? artifactual due to limited distetion versus possible Colitis. Note is again made of non-specific small bowel wall thickening withint the lower pelvis centrally. A small bowel surgical anastamosis is again seen within the lower pelvis centrally. Apparent interval development of mildly increased hepatic density is seen diffusely which could be on the bases of etiologies such as hemachromatosis or amiodarone medication. Note is again made of chronic calcific pancreatitis. s/p tho. mild unchanged common bile duct dilatation. Read by Dr. Evert Mancini MD) Problem List - Problems (1) H/O Clostridium difficile infection Assessment/Plan: send c.diff PCR due to c/o loose stools IV Flagyl 500mg TID Code(s): Z86.19 - PERSONAL HISTORY OF OTHER INFECTIOUS AND PARASITIC DISEASES (2) Prophylactic measure Assessment/Plan: SC heparin TID PPI Code(s): Z29.9 - ENCOUNTER FOR PROPHYLACTIC MEASURES, UNSPECIFIED (3) Diabetic keto-acidosis Assessment/Plan: insulin drip, titrate as per protocol Fingerstick Q1hr transition to ISS once BG normalize and AG closes trend anion gap with BMP q4h trend lactic acid trend electrolytes: trend Na+, K+ and Mg2+, keep k+ > 5 NPO for now, Advance diet once DKA resolves Code(s): E13.10 - OTH DIABETES MELLITUS WITH KETOACIDOSIS WITHOUT COMA (4) Leukocytosis Assessment/Plan: f/u blood and urine cultures Vanco/zosyn ID consult trend WBC and temp curve Code(s): D72.829 - ELEVATED WHITE BLOOD CELL COUNT, UNSPECIFIED (5) Nausea & vomiting Assessment/Plan: PRN Zofran serial abd exam IV fluid hydration Lott inserted for strict intake and outpt Abd CT with non-specific findings but without acute pathology Code(s): R11.2 - NAUSEA WITH VOMITING, UNSPECIFIED Assessment/Plan Code status: Full Dispo: pt admitted and to be monitored in ICU Visit type - Emergency Visit Emergency Visit: Yes Care time: The patient presented to the Emergency Department on the above date and was hospitalized for further evaluation of their emergent condition. - New Patient This patient is new to me today: Yes Date on this admission: 12/21/18 - Critical Care Critical Care patient: Yes Total Critical Care Time (in minutes): 60 Critical Care Statement: The care of this patient involved high complexity decision making to prevent further life threatening deterioration of the patient 's condition and/or to evaluate & treat vital organ system(s) failure or risk of failure.
[2018-12-21] MEDS ORDERED: ONDANSETRON 4 MG/2 ML VIAL IVPUSH PRN (23:32)
[2018-12-21] MEDS ORDERED: ACETAMINOPHEN 325 MG TABLET (FP) PO PRN (23:33)
[2018-12-21] MEDS ORDERED: VANCOMYCIN 1 GM in D5W (PRE-DOCKED) 1,000 MG/250 ML IVPB SCH (23:45)
[2018-12-22] MEDS ORDERED: LORazepam 2 MG/ML SDV VIAL ONE (00:21)
[2018-12-22] MEDS ORDERED: ONDANSETRON 4 MG/2 ML VIAL IVPUSH ONE ×2 (00:30→10:54)
[2018-12-22] MEDS ORDERED: HYDROmorphone HCl 2 MG/ML VIAL IVPUSH ONE ×2 (00:30→11:16)
[2018-12-22] MEDS ORDERED: LORazepam 2 MG/ML SDV VIAL IVPUSH ONE (00:30)
--- NOTE | 2018-12-22 00:53 | PROC ---
Central Line Insertion Indication: Poor Venous Access Risks and Benefits Explained: Yes Consent on Chart: Yes Central Line: Triple Lumen Catheter Anesthesia: 1% Lidocaine Sterile Technique: Yes Ultrasound Guided Assistance: Yes Position: Right Internal Jugular Post Insertion: Yes: Bilateral Breath Sounds, Bilateral Chest Expansion, Chest X-Ray Ordered Sterile Dressing Applied: Yes Remarks: Indirect supervision was obtained by ER physicians prior initiation of procedure. Pt was draped in sterile fashion after obtaining consent from patient. R IJ was identified on ultrasound and using Seldinger technique access to R IJ obtained. Guidewire was placed into IJ and placement was confirmed via ultrasound guidance. No resistance was felt while advancing guidewire. Throughout procedure pt remained alert and SpO2 monitoring revealed 99% throughout entire procedure. Sterile dressing was applied and CXR was ordered.
[2018-12-22] MEDS ORDERED: PIPERACILLIN/TAZOBACTAM 4.5 GM VIAL IVPB ONE (00:57)
[2018-12-22] MEDS ORDERED: DEXTROSE 5%-WATER 100 ML IVPB ONE (00:58)
[2018-12-22] MEDS ORDERED: PIPERACILLIN/TAZOB 3.375 GM 3.375 GM in DEXTROSE 5%-WATER - 50 ML IVPB SCH ×2 (02:00→18:00)
[2018-12-22] MEDS: PIPERACILLIN/TAZOB 3.375 GM 3.375 GM in DEXTROSE 5%-WATER - 50 ML IVPB SCH ×3 (02:37→17:33)
[2018-12-22 02:41] LABS: BLOOD UREA NITROGEN 32.3 mg/dL (7-18); CALCIUM 9.2 mg/dL (8.5-10.1); CREATININE 1.2 mg/dL (0.55-1.3); POTASSIUM 4.3 mmol/L (3.5-5.1)
[2018-12-22] MEDS ORDERED: SODIUM CHLORIDE 0.9%/KCL 20 MEQ/1,000 ML INFUS.BAG IV SCH (02:45)
[2018-12-22] MEDS ORDERED: METOCLOPRAMIDE HCL INJECTION 10 MG/2 ML VIAL IVPUSH PRN (05:11)
[2018-12-22] MEDS ORDERED: ACETAMINOPHEN 1000 MG/100 ML VIAL (NON FORMULARY) IVPB PRN ×2 (05:13→15:54)
[2018-12-22 06:07] LABS: HEMATOCRIT 33.5 % (32.4-45.2); HEMOGLOBIN 10.8 GM/dL (10.7-15.3); LYMPH % 8.4 % (8-40); MCH 27.1 pg (25.7-33.7); MCHC 32.1 g/dl (32.0-36.0); MEAN CELL VOLUME 84.4 fl (80-96); MEAN PLT VOLUME 7.4 fl (7.5-11.1); MONO % 2.8 % (3.8-10.2); NEUT % 88.8 % (42.8-82.8); PLATELET COUNT 445 K/MM3 (134-434); RBC 3.98 M/mm3 (3.60-5.2); RDW 18.3 % (11.6-15.6); WHITE BLOOD COUNT 28.5 K/mm3 (4.0-10.0)
[2018-12-22] MEDS: HEPARIN NA (PORCINE) 5,000 UNITS/ML 1ML VIAL SQ SCH ×3 (06:21→21:32)
[2018-12-22 06:44] LABS: CALCIUM 9.9 mg/dL (8.5-10.1); CREATININE 1.7 mg/dL (0.55-1.3); POTASSIUM 3.4 mmol/L (3.5-5.1)
[2018-12-22] MEDS ORDERED: SODIUM CHLORIDE 500 ML IV STA (06:57)
[2018-12-22] MEDS ORDERED: D5-1/2NS+20 MEQ KCL - 20 MEQ/1,000 ML INFUS.BAG IV SCH ×2 (07:00→07:38)
[2018-12-22] MEDS ORDERED: POTASSIUM CHLORIDE 20 MEQ PREMIX IVPB 100 ML IVPB ONE (07:31)
[2018-12-22] MEDS ORDERED: DEXTROSE 5%-LACTATED RINGERS 1,000 ML IV SCH ×2 (07:45→15:54)
[2018-12-22 07:57] LABS: ALBUMIN 3.6 g/dl (3.4-5.0); BILIRUBIN,TOTAL 0.4 mg/dL (0.2-1); MAGNESIUM 2.4 mg/dL (1.8-2.4); PHOSPHOROUS 2.3 mg/dL (2.5-4.9); TOT PROT 7.4 g/dl (6.4-8.2)
[2018-12-22] MEDS: KCL 10 MEQ IVPB 10 MEQ/100 ML INFUS.BAG IVPB SCH ×2 (08:15→10:02)
--- NOTE | 2018-12-22 08:23 | PN ---
Progress Note, Physician History of Present Illness: 48 year old female with past medical history of HTN, CVA (left sided hemiparesis ), HLD, IDDM, DKA resulting in multiple admissions, dysphagia, gastroparesis, esophageal stricture (EGD 02/14), c/diff (10/2018), SBO September 2018 (s/p SB resection @ [facility] as per pt report) presented to [place] ED on the afternoon of 12/21 with complaints of N/V/D/abd pain x 3 days. Associated symptoms include malaise, dizziness, fever (temp 103 on 12/20), chills, anorexia, urinary frequency and dysuria. Due to the severity of her symptoms pt sustained a mechanical fall, today 12/21, while at home. She landed on her left upper extremity and now reports pain and decreased ROM in affected extremity. Pt's clara decided to transport her via car to ED for evaluation due to worsening mental status. Upon arrival, BG level 439mg/dl, nausea/vomiting treated with Zofran, and morphine administered for Left arm pain. - Current Medication List Current Medications: Active Medications Acetaminophen (Ofirmev Injection -) 1,000 mg IVPB Q6H PRN PRN Reason: PAIN LEVEL 4 - 6 Aspirin (Asa -) 81 mg PO DAILY [facility] Atorvastatin Calcium (Lipitor -) 40 mg PO HS [facility] Chlorhexidine Gluconate (Hibiclens For Decolonization -) 1 applic TP HS [facility] Heparin Sodium (Porcine) (Heparin -) 5,000 unit SQ TID [facility] Last Admin: 12/22/18 06:21 Dose: 5,000 unit Insulin Human Regular 100 (units/ Sodium Chloride) 100 mls @ 5.8 mls/hr IVPB TITR [facility]; Protocol Last Titration: 12/22/18 02:56 Dose: 0.1 units/kg/hr, 5.8 mls/hr Piperacillin Sod/Tazobactam (Sod 3.375 gm/ Dextrose) 50 mls @ 100 mls/hr IVPB Q8H-IV [facility]; Protocol Metronidazole (Flagyl 500mg Premixed Ivpb -) 500 mg in 100 mls @ 100 mls/hr IVPB Q8H-IV [facility] Last Admin: 12/22/18 02:34 Dose: 100 mls/hr Piperacillin Sod/Tazobactam (Sod 3.375 gm/ Dextrose) 50 mls @ 100 mls/hr IVPB Q8H-IV [facility]; Protocol Stop: 12/22/18 18:29 Last Admin: 12/22/18 02:37 Dose: Not Given Potassium Chloride/Sodium Chloride (Ns+20 Meq Kcl -) 20 meq in 1,000 mls @ 100 mls/hr IV ASDIR [facility] Last Admin: 12/22/18 02:55 Dose: 100 mls/hr Potassium Chloride (Potassium Chloride 10 Meq Premix Ivpb -) 10 meq in 100 mls @ 100 mls/hr IVPB Q60M [facility] Stop: 12/22/18 09:59 Last Admin: 12/22/18 08:15 Dose: 100 mls/hr Dextrose/Lactated Ringer's (D5-Lr -) 1,000 mls @ 250 mls/hr IV ASDIR [facility] Last Admin: 12/22/18 08:19 Dose: 250 mls/hr Metoclopramide HCl (Reglan Injection -) 10 mg IVPUSH Q6H PRN PRN Reason: NAUSEA AND/OR VOMITING Mupirocin (Bactroban Ointment (For Decolonization) -) 1 applic NS BID [facility] Stop: 12/27/18 09:59 Ondansetron HCl (Zofran Injection) 4 mg IVPUSH Q6H PRN PRN Reason: NAUSEA AND/OR VOMITING Last Admin: 12/22/18 00:24 Dose: 4 mg Pantoprazole Sodium (Protonix Iv) 40 mg IVPUSH DAILY [facility] Vancomycin HCl (Vancomycin (Pre-Docked)) 1,000 mg IVPB DAILY [facility]; Protocol - Objective Vital Signs: Vital Signs Temperature 98.2 F 12/22/18 02:00 Pulse Rate 96 H 12/22/18 02:00 Respiratory Rate 18 12/22/18 02:00 Blood Pressure 147/87 12/22/18 02:00 O2 Sat by Pulse Oximetry (%) 98 12/21/18 21:43 Constitutional: Yes: Anxious, Mild Distress, Thin Eyes: Yes: WNL, Conjunctiva Clear, EOM Intact HENT: Yes: WNL, Atraumatic, Normocephalic Neck: Yes: WNL, Supple, Trachea Midline Cardiovascular: Yes: WNL, Tachycardia Respiratory: Yes: WNL, Regular, On Nasal O2, Poor Air Entry Gastrointestinal: Yes: WNL, Normal Bowel Sounds, Soft, Tenderness (diffuse) ...Rectal Exam: Yes: Deferred Genitourinary: Yes: WNL Musculoskeletal: Yes: WNL Extremities: Yes: WNL Edema: No Integumentary: Yes: WNL Neurological: Yes: WNL, Alert, Oriented ...Motor Strength: WNL Psychiatric: Yes: WNL, Alert, Oriented, Agitated (when speaking about family) Labs: CBC, BMP 12/22/18 06:00 12/22/18 05:20 - ....Imaging Chest X-ray: Image Reviewed (RIJ central line with tip at SVC, no effsuions or inflitartes, defomity of left clavicle) Problem List - Problems (1) DKA (diabetic ketoacidoses) Assessment/Plan: BGM >400 on admission started on regular insulin gtt in ICU titrate as per protocol Fingerstick Q1hr whiile on gtt transition to ISS once BG normalize LA now .8 and anion gap closed trend electrolytes, maintain K>4.0, Mg >2.0 Code(s): E13.10 - OTH DIABETES MELLITUS WITH KETOACIDOSIS WITHOUT COMA Qualifiers: Diabetes mellitus type: type 1 Diabetes mellitus complication detail: without coma Qualified Code(s): E10.10 - Type 1 diabetes mellitus with ketoacidosis without coma (2) Abdominal pain Assessment/Plan: advance diet as tolerated ABd CT without acute pathology, serial AXR if pain persists given history of SBO PPI BID vomiting subsided, nauesea persists,PRN Zofran Code(s): R10.9 - UNSPECIFIED ABDOMINAL PAIN (3) C. difficile diarrhea Assessment/Plan: c.diff PCR pending, no further episodes of diarrhea continue IV Flagyl 500mg TID isolation precautions Code(s): A04.72 - ENTEROCOLITIS D/T CLOSTRIDIUM DIFFICILE, NOT SPCF RECUR (4) Clavicle fracture Assessment/Plan: clavicle fracture seen on CXR s/p multiple falls in past apply sling to left arm dilaudid prn for pain Code(s): S42.009A - FRACTURE OF UNSP PART OF UNSP CLAVICLE, INIT FOR CLOS FX Qualifiers: Encounter type: initial encounter Clavicle location: lateral end Fracture type: closed Fracture alignment: displaced Laterality: left Qualified Code(s): S42.032A - Displaced fracture of lateral end of left clavicle , initial encounter for closed fracture (5) Prophylactic measure Assessment/Plan: FEN clear diet, advance as tolerated trend electrolytes, maintain K>4.0, Mg >2.0 fluid resusitated overnight, LA no0w .8 from 8 continue NS @ 100cc/hr until taking PO DVT proph heparin sq TID PPI Dispo mainatin in ICU until tele bed is available full code discharge planning Code(s): Z29.9 - ENCOUNTER FOR PROPHYLACTIC MEASURES, UNSPECIFIED (6) Leukocytosis Assessment/Plan: f/u blood and urine cultures continue Vanco/zosyn ID consult appreciated trend WBC and temp curve Code(s): D72.829 - ELEVATED WHITE BLOOD CELL COUNT, UNSPECIFIED (7) Hypercholesteremia Assessment/Plan: continue atorvastatin Code(s): E78.00 - PURE HYPERCHOLESTEROLEMIA, UNSPECIFIED Visit type - Emergency Visit Emergency Visit: Yes ED Registration Date: 12/21/18 Care time: The patient presented to the Emergency Department on the above date and was hospitalized for further evaluation of their emergent condition. - New Patient This patient is new to me today: Yes Date on this admission: 12/22/18 - Critical Care Critical Care patient: Yes Total Critical Care Time (in minutes): 30 Critical Care Statement: The care of this patient involved high complexity decision making to prevent further life threatening deterioration of the patient 's condition and/or to evaluate & treat vital organ system(s) failure or risk of failure. - Discharge Referral Referred to [facility] Med P.C.: No
[2018-12-22 09:30] LABS: VENOUS PC02 33.6 mmHg (41-51); VENOUS PH 7.35 (7.31-7.41); VENOUS PO2 44.4 mmHg (30-40)
[2018-12-22 09:45] LABS: BLOOD UREA NITROGEN 27.7 mg/dL (7-18); CALCIUM 9.1 mg/dL (8.5-10.1); CREATININE 1.1 mg/dL (0.55-1.3); POTASSIUM 4.5 mmol/L (3.5-5.1)
[2018-12-22] MEDS ORDERED: DEXTROSE 5%-WATER - 50 ML IVPB ONE ×2 (09:55→17:12)
[2018-12-22] MEDS ORDERED: PIPERACILLIN/TAZOBACTAM 3.375 GM VIAL IVPB ONE ×2 (09:55→17:12)
[2018-12-22] MEDS ORDERED: VANCOMYCIN 1 GM in D5W (PRE-DOCKED) 1,000 MG/250 ML IVPB SCH (10:00)
[2018-12-22] MEDS ORDERED: PANTOPRAZOLE SODIUM 40 MG VIAL IVPUSH SCH (10:00)
[2018-12-22] MEDS ORDERED: ASPIRIN 81 MG CHEWABLE TABLETS PO SCH (10:00)
[2018-12-22] MEDS ORDERED: MUPIROCIN 2% TOPICAL OINTMENT FOR DECOLONIZATION NS SCH (10:00)
--- NOTE | 2018-12-22 10:33 | EKG ---
Test Reason : Blood Pressure : / mmHG Vent. Rate : 111 BPM Atrial Rate : 111 BPM P-R Int : 124 ms QRS Dur : 084 ms QT Int : 308 ms P-R-T Axes : 050 062 014 degrees QTc Int : 418 ms SINUS TACHYCARDIA WITH OCCASIONAL PREMATURE VENTRICULAR COMPLEXES OTHERWISE NORMAL ECG Confirmed by Baljeet Steven MD ([id number]) on 12/22/2018 10:32:52 AM Referred By: Confirmed By:Baljeet Steven MD
[2018-12-22] MEDS ORDERED: INSULIN (LEVEMIR) 100 UNITS/ML UNITS SQ ONE (10:57)
[2018-12-22] MEDS ORDERED: INSULIN SLIDING SCALE (NOVOLOG) 1 VIAL SQ SCH (11:00)
[2018-12-22] MEDS ORDERED: morphine SULFATE 4 MG/ML VIAL IVPUSH ONE (11:03)
[2018-12-22] MEDS ORDERED: HYDROmorphone HCL CARPU-JECT 2 MG/1 ML DISP.SYRIN IVPUSH ONE (11:13)
[2018-12-22] MEDS ORDERED: INSULIN (NOVOLOG) ASPART 100 UNITS/ML 10ML VIAL ONE (11:41)
[2018-12-22] MEDS ORDERED: SODIUM CHLORIDE 1,000 ML IV SCH (12:00)
[2018-12-22 12:02] LABS: EPI CELLS 19.5 /HPF (0-5/HPF); HYALINE CASTS 8 /lpf (0-8); PH,URINE 5.5 (5.0-8.0); URINE APPEARANCE CLOUDY; URINE BACTERIA 106.7 /hpf (NEGATIVE); URINE BILIRUBIN NEGATIVE (NEGATIVE); URINE COLOR YELLOW; URINE GLUCOSE (UA) 3+ (NEGATIVE); URINE KETONE 3+ (NEGATIVE); URINE LEUK ESTERASE NEGATIVE (NEGATIVE); URINE NITRITE NEGATIVE (NEGATIVE); URINE PROTEIN 1+ (NEGATIVE); URINE UROBILINOGEN 0.2 mg/dL (0.2-1.0); URINE WBC 3 /hpf (0-5)
--- NOTE | 2018-12-22 12:35 | PN ---
Teaching Attending Note Name of Resident: Chencho Andrews ATTENDING PHYSICIAN STATEMENT I saw and evaluated the patient. I reviewed the resident's note and discussed the case with the resident. I agree with the resident's findings and plan as documented. SUBJECTIVE: Pt seen and examined in the ICU. Anion gap closed, off insulin gtt. c/o abdominal pain, asking for pain meds. OBJECTIVE: Vital Signs Period Temp Pulse Resp BP Sys/Rapp Pulse Ox Last 24 Hr 97.5 F-98.3 F 95-120 17-21 128-157/75-89 98-100 Intake & Output 12/19/18 12/20/18 12/21/18 12/22/18 23:59 23:59 23:59 23:59 Intake Total 1325 390 Balance 1325 390 Weight 58.967 kg 57.334 kg Gen: NAD at rest Heart: RRR Lung: decreased breath sounds at the bases Abd: soft, nontender Ext: no edema CBC, BMP 12/22/18 06:00 Active Medications Acetaminophen (Ofirmev Injection -) 1,000 mg IVPB Q6H PRN PRN Reason: PAIN LEVEL 4 - 6 Last Admin: 12/22/18 10:02 Dose: 1,000 mg Aspirin (Asa -) 81 mg PO DAILY [facility] Last Admin: 12/22/18 10:03 Dose: 81 mg Atorvastatin Calcium (Lipitor -) 40 mg PO HS [facility] Chlorhexidine Gluconate (Hibiclens For Decolonization -) 1 applic TP HS [facility] Heparin Sodium (Porcine) (Heparin -) 5,000 unit SQ TID [facility] Last Admin: 12/22/18 06:21 Dose: 5,000 unit Piperacillin Sod/Tazobactam (Sod 3.375 gm/ Dextrose) 50 mls @ 100 mls/hr IVPB Q8H-IV [facility]; Protocol Metronidazole (Flagyl 500mg Premixed Ivpb -) 500 mg in 100 mls @ 100 mls/hr IVPB Q8H-IV [facility] Last Admin: 12/22/18 10:02 Dose: 100 mls/hr Piperacillin Sod/Tazobactam (Sod 3.375 gm/ Dextrose) 50 mls @ 100 mls/hr IVPB Q8H-IV [facility]; Protocol Stop: 12/22/18 18:29 Last Admin: 12/22/18 10:04 Dose: 100 mls/hr Potassium Chloride/Sodium Chloride (Ns+20 Meq Kcl -) 20 meq in 1,000 mls @ 100 mls/hr IV ASDIR [facility] Last Admin: 12/22/18 02:55 Dose: 100 mls/hr Dextrose/Lactated Ringer's (D5-Lr -) 1,000 mls @ 250 mls/hr IV ASDIR [facility] Last Admin: 12/22/18 08:19 Dose: 250 mls/hr Sodium Chloride (Normal Saline -) 1,000 mls @ 100 mls/hr IV ASDIR [facility] Last Admin: 12/22/18 12:19 Dose: 100 mls/hr Insulin Aspart (Novolog Vial Sliding Scale -) 1 vial SQ ACHS [facility]; Protocol Last Admin: 12/22/18 11:42 Dose: 12 units Metoclopramide HCl (Reglan Injection -) 10 mg IVPUSH Q6H PRN PRN Reason: NAUSEA AND/OR VOMITING Mupirocin (Bactroban Ointment (For Decolonization) -) 1 applic NS BID [facility] Stop: 12/27/18 09:59 Last Admin: 12/22/18 10:04 Dose: 1 applic Ondansetron HCl (Zofran Injection) 4 mg IVPUSH Q6H PRN PRN Reason: NAUSEA AND/OR VOMITING Last Admin: 12/22/18 00:24 Dose: 4 mg Pantoprazole Sodium (Protonix Iv) 40 mg IVPUSH DAILY [facility] Last Admin: 12/22/18 10:03 Dose: 40 mg Vancomycin HCl (Vancomycin (Pre-Docked)) 1,000 mg IVPB DAILY [facility]; Protocol ASSESSMENT AND PLAN: Diabetic Ketoacidosis resolving Lactic Acidosis Acute Kidney Injury Hyperlipidemia h/o Noncompliance - start long acting insulin - monitor BGM, BMP - IVF - PO as tolerated - pain control - send stool for C diff - can monitor off antibiotics pending cultures - DVT prophylaxis - can monitor on floor
[2018-12-22 12:51] LABS: BLOOD UREA NITROGEN 23.8 mg/dL (7-18); CALCIUM 8.8 mg/dL (8.5-10.1); CREATININE 1.1 mg/dL (0.55-1.3); POTASSIUM 4.4 mmol/L (3.5-5.1)
[2018-12-22 12:55] LABS: ANISOCYTOSIS 1+; MACROCYTOSIS 0; OVALOCYTE 1+; PLATELET ESTIMATE NORMAL
--- NOTE | 2018-12-22 13:49 | CON.ID ---
Consult - Past Medical History [employer]: Yes: CVA, Migraine Cardio/Vascular: Yes: Hyperlipdemia Gastrointestinal: Yes: Other (Gastroparesis) ...LMP: 04/14/13 ...: No Musculoskeletal: Yes: Chronic low back pain Endocrine: Yes: Diabetes Mellitus Additional Medical History: dka in the past - Past Surgical History Past Surgical History: Yes: Cholecystectomy - Alcohol/Substance Use Hx Alcohol Use: No History of Substance Use: reports: None - Smoking History Smoking history: Current every day smoker Have you smoked in the past 12 months: Yes Aproximately how many cigarettes per day: 10 - Social History ADL: Independent Occupation: Unemployed History of Recent Travel: No Home Medications - Allergies Allergies/Adverse Reactions: Allergies Allergy/AdvReac Type Severity Reaction Status Date / Time No Known Allergies Allergy Verified 12/21/18 17:43 - Home Medications Home Medications: Ambulatory Orders Insulin Detemir [Levemir Flextouch] 25 unit SQ DAILY #3 insuln.pen 06/20/18 Aspirin 81 mg PO DAILY #30 tab.chew 08/13/18 Aspirin [ASA -] 81 mg PO DAILY tab.chew 08/13/18 Atorvastatin Ca [Lipitor] 40 mg PO HS #30 tablet 08/13/18 Family Disease History - Family Disease History Family Disease History: Heart Disease: Father (cad), Other: Mother (Alive (70) well) Physical Exam Vital Signs: Vital Signs Temperature 98.3 F 12/22/18 10:00 Pulse Rate 100 H 12/22/18 12:00 Respiratory Rate 21 H 12/22/18 12:00 Blood Pressure 157/75 12/22/18 12:00 O2 Sat by Pulse Oximetry (%) 100 12/22/18 09:00 Labs: CBC, BMP 12/22/18 06:00 12/22/18 11:47
[2018-12-22] MEDS: INSULIN SLIDING SCALE (NOVOLOG) 1 VIAL SQ SCH ×2 (16:56→23:04)
[2018-12-22] MEDS: SODIUM CHLORIDE 0.9%/KCL 20 MEQ/1,000 ML INFUS.BAG IV SCH (17:33)
--- NOTE | 2018-12-22 17:36 | PN ---
Physical Exam: SUBJECTIVE: Patient seen and examined OBJECTIVE: Vital Signs Period Temp Pulse Resp BP Sys/Rapp Pulse Ox Last 24 Hr 97.5 F-98.4 F 95-120 16-21 109-157/67-89 98-100 GENERAL: The patient is awake, alert, and fully oriented, in no acute distress. HEAD: Normal with no signs of trauma. EYES: PERRL, extraocular movements intact, sclera anicteric, conjunctiva clear. No ptosis. ENT: Ears normal, nares patent, oropharynx clear without exudates, moist mucous membranes. NECK: Trachea midline, full range of motion, supple. LUNGS: Breath sounds equal, clear to auscultation bilaterally, no wheezes, no crackles, no accessory muscle use. HEART: Regular rate and rhythm, S1, S2 without murmur, rub or gallop. ABDOMEN: Soft, nontender, nondistended, normoactive bowel sounds, no guarding, no rebound, no hepatosplenomegaly, no masses. EXTREMITIES: 2+ pulses, warm, well-perfused, no edema. NEUROLOGICAL: Cranial nerves II through XII grossly intact. Normal speech, gait not observed. PSYCH: Normal mood, normal affect. SKIN: Warm, dry, normal turgor, no rashes or lesions noted Laboratory Results - last 24 hr 12/21/18 12/21/18 12/21/18 18:10 18:25 18:25 WBC 21.9 H RBC 4.43 Hgb 12.7 Hct 38.1 MCV 86.0 MCH 28.6 MCHC 33.3 RDW 16.8 H D Plt Count 609 H MPV 8.1 Absolute Neuts (auto) 18.1 Neutrophils % No Result Required. Neutrophils % (Manual) 82.0 Band Neutrophils % 1.0 Lymphocytes % No Result Required. Lymphocytes % (Manual) 14.0 Monocytes % Monocytes % (Manual) 3 L Eosinophils % Eosinophils % (Manual) Basophils % Basophils % (Manual) Myelocytes % (Man) Promyelocytes % (Man) Blast Cells % (Manual) Nucleated RBC % Metamyelocytes Hypochromia Platelet Estimate Increased Polychromasia Poikilocytosis Anisocytosis Microcytosis Macrocytosis Ovalocytes Anticoagulation Therapy VBG pH POC VBG pCO2 POC VBG pO2 VBG HCO3 VBG O2 Sat ([place]i) VBG Base Excess O2 Delivery Device Oxygen Flow Rate Vent Mode Vent Rate Mechanical Rate Pressure Support Vent Sodium Cancelled Potassium Cancelled Chloride Cancelled Carbon Dioxide Cancelled Anion Gap Cancelled BUN Cancelled Creatinine Cancelled Est GFR (CKD-EPI)AfAm Cancelled Est GFR (CKD-EPI)NonAf Cancelled POC Glucometer Random Glucose Cancelled Lactic Acid Calcium Cancelled Phosphorus Magnesium Total Bilirubin Cancelled AST Cancelled ALT Cancelled Alkaline Phosphatase Cancelled Creatine Kinase Troponin I < 0.03 Total Protein Cancelled Albumin Cancelled Total Amylase Lipase Urine Color Urine Appearance Urine pH Ur Specific [place] Urine Protein Urine Glucose (UA) Urine Ketones Urine Blood Urine Nitrite Urine Bilirubin Urine Urobilinogen Ur Leukocyte Esterase Urine WBC (Auto) Urine Casts (Auto) U Epithel Cells (Auto) Urine Bacteria (Auto) Urine HCG, Qual Acetone, Qual 12/21/18 12/21/18 12/21/18 18:25 18:25 18:56 WBC RBC Hgb Hct MCV MCH MCHC RDW Plt Count MPV Absolute Neuts (auto) Neutrophils % Neutrophils % (Manual) Band Neutrophils % Lymphocytes % Lymphocytes % (Manual) Monocytes % Monocytes % (Manual) Eosinophils % Eosinophils % (Manual) Basophils % Basophils % (Manual) Myelocytes % (Man) Promyelocytes % (Man) Blast Cells % (Manual) Nucleated RBC % Metamyelocytes Hypochromia Platelet Estimate Polychromasia Poikilocytosis Anisocytosis Microcytosis Macrocytosis Ovalocytes Anticoagulation Therapy VBG pH POC VBG pCO2 POC VBG pO2 VBG HCO3 VBG O2 Sat (Lexi) VBG Base Excess O2 Delivery Device Oxygen Flow Rate Vent Mode Vent Rate Mechanical Rate Pressure Support Vent Sodium Potassium Chloride Carbon Dioxide Anion Gap BUN Creatinine Est GFR (CKD-EPI)AfAm Est GFR (CKD-EPI)NonAf POC Glucometer Random Glucose Lactic Acid 3.7 H* Calcium Phosphorus Magnesium Total Bilirubin AST ALT Alkaline Phosphatase Creatine Kinase 24 L Troponin I Total Protein Albumin Total Amylase Lipase Urine Color Urine Appearance Urine pH Ur Specific [place] Urine Protein Urine Glucose (UA) Urine Ketones Urine Blood Urine Nitrite Urine Bilirubin Urine Urobilinogen Ur Leukocyte Esterase Urine WBC (Auto) Urine Casts (Auto) U Epithel Cells (Auto) Urine Bacteria (Auto) Urine HCG, Qual Acetone, Qual Positive small 1+ H 12/21/18 12/21/18 12/21/18 19:13 21:16 22:18 WBC RBC Hgb Hct MCV MCH MCHC RDW Plt Count MPV Absolute Neuts (auto) Neutrophils % Neutrophils % (Manual) Band Neutrophils % Lymphocytes % Lymphocytes % (Manual) Monocytes % Monocytes % (Manual) Eosinophils % Eosinophils % (Manual) Basophils % Basophils % (Manual) Myelocytes % (Man) Promyelocytes % (Man) Blast Cells % (Manual) Nucleated RBC % Metamyelocytes Hypochromia Platelet Estimate Polychromasia Poikilocytosis Anisocytosis Microcytosis Macrocytosis Ovalocytes Anticoagulation Therapy VBG pH POC VBG pCO2 POC VBG pO2 VBG HCO3 VBG O2 Sat (Lexi) VBG Base Excess O2 Delivery Device Oxygen Flow Rate Vent Mode Vent Rate Mechanical Rate Pressure Support Vent Sodium 135 L Potassium 4.2 Chloride 97 L Carbon Dioxide 14 L Anion Gap 24 H BUN 34.0 H Creatinine 1.3 Est GFR (CKD-EPI)AfAm 55.79 Est GFR (CKD-EPI)NonAf 48.13 POC Glucometer 83 133 Random Glucose 336 H* Lactic Acid Calcium 10.8 H Phosphorus Magnesium Total Bilirubin 1.1 H AST 16 ALT 19 Alkaline Phosphatase 115 Creatine Kinase Troponin I Total Protein 8.3 H Albumin 4.3 Total Amylase Lipase Urine Color Urine Appearance Urine pH Ur Specific [place] Urine Protein Urine Glucose (UA) Urine Ketones Urine Blood Urine Nitrite Urine Bilirubin Urine Urobilinogen Ur Leukocyte Esterase Urine WBC (Auto) Urine Casts (Auto) U Epithel Cells (Auto) Urine Bacteria (Auto) Urine HCG, Qual Acetone, Qual 12/21/18 12/22/18 12/22/18 23:10 02:00 04:03 WBC RBC Hgb Hct MCV MCH MCHC RDW Plt Count MPV Absolute Neuts (auto) Neutrophils % Neutrophils % (Manual) Band Neutrophils % Lymphocytes % Lymphocytes % (Manual) Monocytes % Monocytes % (Manual) Eosinophils % Eosinophils % (Manual) Basophils % Basophils % (Manual) Myelocytes % (Man) Promyelocytes % (Man) Blast Cells % (Manual) Nucleated RBC % Metamyelocytes Hypochromia Platelet Estimate Polychromasia Poikilocytosis Anisocytosis Microcytosis Macrocytosis Ovalocytes Anticoagulation Therapy VBG pH POC VBG pCO2 POC VBG pO2 VBG HCO3 VBG O2 Sat (Lexi) VBG Base Excess O2 Delivery Device Oxygen Flow Rate Vent Mode Vent Rate Mechanical Rate Pressure Support Vent Sodium 136 Potassium 4.3 Chloride 100 Carbon Dioxide 19 L Anion Gap 18 H BUN 32.3 H Creatinine 1.2 Est GFR (CKD-EPI)AfAm 61.46 Est GFR (CKD-EPI)NonAf 53.02 POC Glucometer 143 450 Random Glucose 428 H* Lactic Acid Calcium 9.2 Phosphorus Magnesium Total Bilirubin AST ALT Alkaline Phosphatase Creatine Kinase Troponin I Total Protein Albumin Total Amylase Lipase Urine Color Urine Appearance Urine pH Ur Specific [place] Urine Protein Urine Glucose (UA) Urine Ketones Urine Blood Urine Nitrite Urine Bilirubin Urine Urobilinogen Ur Leukocyte Esterase Urine WBC (Auto) Urine Casts (Auto) U Epithel Cells (Auto) Urine Bacteria (Auto) Urine HCG, Qual Acetone, Qual 12/22/18 12/22/18 12/22/18 05:20 05:20 05:20 WBC RBC Hgb Hct MCV MCH MCHC RDW Plt Count MPV Absolute Neuts (auto) Neutrophils % Neutrophils % (Manual) Band Neutrophils % Lymphocytes % Lymphocytes % (Manual) Monocytes % Monocytes % (Manual) Eosinophils % Eosinophils % (Manual) Basophils % Basophils % (Manual) Myelocytes % (Man) Promyelocytes % (Man) Blast Cells % (Manual) Nucleated RBC % Metamyelocytes Hypochromia Platelet Estimate Polychromasia Poikilocytosis Anisocytosis Microcytosis Macrocytosis Ovalocytes Anticoagulation Therapy VBG pH POC VBG pCO2 POC VBG pO2 VBG HCO3 VBG O2 Sat (Lexi) VBG Base Excess O2 Delivery Device Oxygen Flow Rate Vent Mode Vent Rate Mechanical Rate Pressure Support Vent Sodium 140 Cancelled Potassium 3.4 L Cancelled Chloride 104 Cancelled Carbon Dioxide 17 L Cancelled Anion Gap 20 H Cancelled BUN 32.0 H Cancelled Creatinine 1.7 H Cancelled Est GFR (CKD-EPI)AfAm 40.33 Cancelled Est GFR (CKD-EPI)NonAf 34.80 Cancelled POC Glucometer Random Glucose 209 H Cancelled Lactic Acid 8.5 H* Calcium 9.9 Cancelled Phosphorus 2.3 L Cancelled Magnesium 2.4 Cancelled Total Bilirubin 0.4 Cancelled AST 7 L Cancelled ALT 19 Cancelled Alkaline Phosphatase 108 Cancelled Creatine Kinase Troponin I Total Protein 7.4 Cancelled Albumin 3.6 Cancelled Total Amylase 113 Cancelled Lipase 466 H Cancelled Urine Color Urine Appearance Urine pH Ur Specific [place] Urine Protein Urine Glucose (UA) Urine Ketones Urine Blood Urine Nitrite Urine Bilirubin Urine Urobilinogen Ur Leukocyte Esterase Urine WBC (Auto) Urine Casts (Auto) U Epithel Cells (Auto) Urine Bacteria (Auto) Urine HCG, Qual Acetone, Qual 12/22/18 12/22/18 12/22/18 06:00 07:58 08:30 WBC 28.5 H RBC 3.98 Hgb 10.8 Hct 33.5 D MCV 84.4 MCH 27.1 MCHC 32.1 RDW 18.3 H Plt Count 445 H MPV 7.4 L Absolute Neuts (auto) 25.2 H Neutrophils % 88.8 H D Neutrophils % (Manual) 91.0 H Band Neutrophils % 0.0 Lymphocytes % 8.4 D Lymphocytes % (Manual) 8.0 D Monocytes % 2.8 L Monocytes % (Manual) 1 L Eosinophils % 0.0 D Eosinophils % (Manual) 0.0 D Basophils % 0.0 Basophils % (Manual) 0.0 Myelocytes % (Man) 0 D Promyelocytes % (Man) 0 Blast Cells % (Manual) 0 Nucleated RBC % 0 Metamyelocytes 0 Hypochromia 0 Platelet Estimate Normal Polychromasia 0 Poikilocytosis 0 Anisocytosis 1+ Microcytosis 1+ Macrocytosis 0 Ovalocytes 1+ Anticoagulation Therapy VBG pH POC VBG pCO2 POC VBG pO2 VBG HCO3 VBG O2 Sat (Lexi) VBG Base Excess O2 Delivery Device Oxygen Flow Rate Vent Mode Vent Rate Mechanical Rate Pressure Support Vent Sodium Potassium Chloride Carbon Dioxide Anion Gap BUN Creatinine Est GFR (CKD-EPI)AfAm Est GFR (CKD-EPI)NonAf POC Glucometer 90 Random Glucose Lactic Acid Calcium Phosphorus Magnesium Total Bilirubin AST ALT Alkaline Phosphatase Creatine Kinase Troponin I Total Protein Albumin Total Amylase Lipase Urine Color Yellow Urine Appearance Cloudy Urine pH 5.5 Ur Specific [place] 1.028 Urine Protein 1+ H Urine Glucose (UA) 3+ H Urine Ketones 3+ H Urine Blood Negative Urine Nitrite Negative Urine Bilirubin Negative Urine Urobilinogen 0.2 Ur Leukocyte Esterase Negative Urine WBC (Auto) 3 Urine Casts (Auto) 8 U Epithel Cells (Auto) 19.5 Urine Bacteria (Auto) 106.7 Urine HCG, Qual Acetone, Qual 12/22/18 12/22/18 12/22/18 08:50 08:50 08:50 WBC RBC Hgb Hct MCV MCH MCHC RDW Plt Count MPV Absolute Neuts (auto) Neutrophils % Neutrophils % (Manual) Band Neutrophils % Lymphocytes % Lymphocytes % (Manual) Monocytes % Monocytes % (Manual) Eosinophils % Eosinophils % (Manual) Basophils % Basophils % (Manual) Myelocytes % (Man) Promyelocytes % (Man) Blast Cells % (Manual) Nucleated RBC % Metamyelocytes Hypochromia Platelet Estimate Polychromasia Poikilocytosis Anisocytosis Microcytosis Macrocytosis Ovalocytes Anticoagulation Therapy No Result Required. VBG pH POC VBG pCO2 POC VBG pO2 VBG HCO3 VBG O2 Sat (Lexi) VBG Base Excess O2 Delivery Device No Result Required. Oxygen Flow Rate No Result Required. Vent Mode No Result Required. Vent Rate No Result Required. Mechanical Rate No Result Required. Pressure Support Vent No Result Required. Sodium Potassium Chloride Carbon Dioxide Anion Gap BUN Creatinine Est GFR (CKD-EPI)AfAm Est GFR (CKD-EPI)NonAf POC Glucometer Random Glucose Lactic Acid Calcium Phosphorus Magnesium Total Bilirubin AST ALT Alkaline Phosphatase Creatine Kinase Troponin I Total Protein Albumin Total Amylase Lipase Urine Color Cancelled Urine Appearance Cancelled Urine pH Cancelled Ur Specific [place] Urine Protein Cancelled Urine Glucose (UA) Cancelled Urine Ketones Cancelled Urine Blood Cancelled Urine Nitrite Cancelled Urine Bilirubin Cancelled Urine Urobilinogen Cancelled Ur Leukocyte Esterase Cancelled Urine WBC (Auto) Urine Casts (Auto) U Epithel Cells (Auto) Urine Bacteria (Auto) Urine HCG, Qual Negative Acetone, Qual 12/22/18 12/22/18 12/22/18 08:50 08:50 09:18 WBC RBC Hgb Hct MCV MCH MCHC RDW Plt Count MPV Absolute Neuts (auto) Neutrophils % Neutrophils % (Manual) Band Neutrophils % Lymphocytes % Lymphocytes % (Manual) Monocytes % Monocytes % (Manual) Eosinophils % Eosinophils % (Manual) Basophils % Basophils % (Manual) Myelocytes % (Man) Promyelocytes % (Man) Blast Cells % (Manual) Nucleated RBC % Metamyelocytes Hypochromia Platelet Estimate Polychromasia Poikilocytosis Anisocytosis Microcytosis Macrocytosis Ovalocytes Anticoagulation Therapy VBG pH 7.35 POC VBG pCO2 33.6 L POC VBG pO2 44.4 H VBG HCO3 18.3 L VBG O2 Sat (Lexi) 77.0 VBG Base Excess 6.0 H O2 Delivery Device Oxygen Flow Rate Vent Mode Vent Rate Mechanical Rate Pressure Support Vent Sodium 139 Potassium 4.5 Chloride 106 Carbon Dioxide 20 L Anion Gap 12 BUN 27.7 H Creatinine 1.1 Est GFR (CKD-EPI)AfAm 68.27 Est GFR (CKD-EPI)NonAf 58.91 POC Glucometer Random Glucose 236 H Lactic Acid 0.8 Calcium 9.1 Phosphorus Magnesium Total Bilirubin AST ALT Alkaline Phosphatase Creatine Kinase Troponin I Total Protein Albumin Total Amylase Lipase Urine Color Urine Appearance Urine pH Ur Specific [place] Urine Protein Urine Glucose (UA) Urine Ketones Urine Blood Urine Nitrite Urine Bilirubin Urine Urobilinogen Ur Leukocyte Esterase Urine WBC (Auto) Urine Casts (Auto) U Epithel Cells (Auto) Urine Bacteria (Auto) Urine HCG, Qual Acetone, Qual 12/22/18 12/22/18 12/22/18 11:35 11:47 14:45 WBC RBC Hgb Hct MCV MCH MCHC RDW Plt Count MPV Absolute Neuts (auto) Neutrophils % Neutrophils % (Manual) Band Neutrophils % Lymphocytes % Lymphocytes % (Manual) Monocytes % Monocytes % (Manual) Eosinophils % Eosinophils % (Manual) Basophils % Basophils % (Manual) Myelocytes % (Man) Promyelocytes % (Man) Blast Cells % (Manual) Nucleated RBC % Metamyelocytes Hypochromia Platelet Estimate Polychromasia Poikilocytosis Anisocytosis Microcytosis Macrocytosis Ovalocytes Anticoagulation Therapy VBG pH POC VBG pCO2 POC VBG pO2 VBG HCO3 VBG O2 Sat (Lexi) VBG Base Excess O2 Delivery Device Oxygen Flow Rate Vent Mode Vent Rate Mechanical Rate Pressure Support Vent Sodium 136 Potassium 4.4 Chloride 104 Carbon Dioxide 9 L Anion Gap 24 H BUN 23.8 H Creatinine 1.1 Est GFR (CKD-EPI)AfAm 68.27 Est GFR (CKD-EPI)NonAf 58.91 POC Glucometer 534 170 Random Glucose 552 H* Lactic Acid Calcium 8.8 Phosphorus Magnesium Total Bilirubin AST ALT Alkaline Phosphatase Creatine Kinase Troponin I Total Protein Albumin Total Amylase Lipase Urine Color Urine Appearance Urine pH Ur Specific [place] Urine Protein Urine Glucose (UA) Urine Ketones Urine Blood Urine Nitrite Urine Bilirubin Urine Urobilinogen Ur Leukocyte Esterase Urine WBC (Auto) Urine Casts (Auto) U Epithel Cells (Auto) Urine Bacteria (Auto) Urine HCG, Qual Acetone, Qual 12/22/18 16:53 WBC RBC Hgb Hct MCV MCH MCHC RDW Plt Count MPV Absolute Neuts (auto) Neutrophils % Neutrophils % (Manual) Band Neutrophils % Lymphocytes % Lymphocytes % (Manual) Monocytes % Monocytes % (Manual) Eosinophils % Eosinophils % (Manual) Basophils % Basophils % (Manual) Myelocytes % (Man) Promyelocytes % (Man) Blast Cells % (Manual) Nucleated RBC % Metamyelocytes Hypochromia Platelet Estimate Polychromasia Poikilocytosis Anisocytosis Microcytosis Macrocytosis Ovalocytes Anticoagulation Therapy VBG pH POC VBG pCO2 POC VBG pO2 VBG HCO3 VBG O2 Sat (Lexi) VBG Base Excess O2 Delivery Device Oxygen Flow Rate Vent Mode Vent Rate Mechanical Rate Pressure Support Vent Sodium Potassium Chloride Carbon Dioxide Anion Gap BUN Creatinine Est GFR (CKD-EPI)AfAm Est GFR (CKD-EPI)NonAf POC Glucometer 137 Random Glucose Lactic Acid Calcium Phosphorus Magnesium Total Bilirubin AST ALT Alkaline Phosphatase Creatine Kinase Troponin I Total Protein Albumin Total Amylase Lipase Urine Color Urine Appearance Urine pH Ur Specific [place] Urine Protein Urine Glucose (UA) Urine Ketones Urine Blood Urine Nitrite Urine Bilirubin Urine Urobilinogen Ur Leukocyte Esterase Urine WBC (Auto) Urine Casts (Auto) U Epithel Cells (Auto) Urine Bacteria (Auto) Urine HCG, Qual Acetone, Qual Active Medications Generic Name Dose Route Start Last Admin Trade Name Freq PRN Reason Stop Dose Admin Acetaminophen 1,000 mg 12/22/18 15:54 Ofirmev Injection - IVPB Q6H PRN PAIN LEVEL 4 - 6 Aspirin 81 mg 12/23/18 10:00 Asa - PO DAILY [facility] Atorvastatin Calcium 40 mg 12/22/18 22:00 Lipitor - PO HS [facility] Chlorhexidine Gluconate 1 applic 12/22/18 22:00 Hibiclens For Decolonization - TP HS [facility] Heparin Sodium (Porcine) 5,000 unit 12/22/18 22:00 Heparin - SQ TID [facility] Dextrose/Lactated Ringer's 1,000 mls @ 250 mls/hr 12/22/18 15:54 12/22/18 16: 33 D5-Lr - IV Not Given ASDIR [facility] Metronidazole 500 mg in 100 mls @ 100 mls/hr 12/22/18 18:00 12/22/18 17:33 Flagyl 500mg Premixed Ivpb - IVPB 100 mls/hr Q8H-IV [facility] Administration Potassium Chloride/Sodium Chloride 20 meq in 1,000 mls @ 100 mls/hr 12/22/18 15:54 12/22/18 17:33 Ns+20 Meq Kcl - IV 100 mls/hr ASDIR [facility] Administration Piperacillin Sod/Tazobactam 50 mls @ 100 mls/hr 12/22/18 18:00 12/22/18 17:33 Sod 3.375 gm/ Dextrose IVPB 12/23/18 02:29 100 mls/hr Q8H-IV [facility] Administration Protocol Piperacillin Sod/Tazobactam 50 mls @ 100 mls/hr 12/22/18 18:00 Sod 3.375 gm/ Dextrose IVPB Q8H-IV [facility] Protocol Insulin Aspart 1 vial 12/22/18 17:00 12/22/18 16:56 Novolog Vial Sliding Scale - SQ Not Given Q6H [facility] Protocol Metoclopramide HCl 10 mg 12/22/18 15:54 Reglan Injection - IVPUSH Q6H PRN NAUSEA AND/OR VOMITING Mupirocin 1 applic 12/22/18 22:00 Bactroban Ointment (For Decolonization) - NS 12/27/18 09:59 BID [facility] Ondansetron HCl 4 mg 12/22/18 15:54 Zofran Injection IVPUSH Q6H PRN NAUSEA AND/OR VOMITING Pantoprazole Sodium 40 mg 12/23/18 10:00 Protonix Iv IVPUSH DAILY [facility] Vancomycin HCl 1,000 mg 12/23/18 10:00 Vancomycin (Pre-Docked) IVPB DAILY [facility] Protocol ASSESSMENT/PLAN: Pt found to have elevated Bicarb/anion gap and positive acetone with low K (3.4 ) and BGM below 250 while on 5.8 unit/hour insulin drip. BGM at bedside now 90 Drip stopped, BMP rechecked, shows gap closed with improving labs Lev 10 units BID and sliding scale initiated, will continue to recheck BMP. Pt stable and will likely be transferred to the floor
[2018-12-22] MEDS ORDERED: LACTATED RINGERS SOLUTION 1,000 ML/1,000 ML INFUS.BAG IV SCH (19:45)
[2018-12-22 20:30] LABS: CALCIUM 8.9 mg/dL (8.5-10.1); POTASSIUM 3.6 mmol/L (3.5-5.1)
[2018-12-22] MEDS: MUPIROCIN 2% TOPICAL OINTMENT FOR DECOLONIZATION NS SCH (21:32)
[2018-12-22] MEDS: CHLORHEXIDINE GLUCONATE 4% CLEANSER FOR DECOLONIZATION TP SCH (21:33)
[2018-12-22] MEDS: ATORVASTATIN CA 40 MG TABLET (FP) PO SCH (21:33)
[2018-12-22] MEDS ORDERED: ATORVASTATIN CA 40 MG TABLET (FP) PO SCH (22:00)
[2018-12-22] MEDS ORDERED: CHLORHEXIDINE GLUCONATE 4% CLEANSER FOR DECOLONIZATION TP SCH (22:00)
[2018-12-22] MEDS ORDERED: DEXTROSE 50%-WATER - 25 GM/50 ML VIAL IVPUSH ONE (22:43)
[2018-12-22] MEDS ORDERED: DEXTROSE 50%-WATER 25 GM/50 ML DISP.SYRIN ONE (22:56)
[2018-12-23] MEDS ORDERED: PIPERACILLIN/TAZOBACTAM 3.375 GM VIAL IVPB ONE (00:53)
[2018-12-23] MEDS ORDERED: DEXTROSE 5%-WATER - 50 ML IVPB ONE (00:54)
[2018-12-23] MEDS: PIPERACILLIN/TAZOB 3.375 GM 3.375 GM in DEXTROSE 5%-WATER - 50 ML IVPB SCH (01:11)
[2018-12-23] MEDS: INSULIN SLIDING SCALE (NOVOLOG) 1 VIAL SQ SCH ×4 (05:33→21:10)
[2018-12-23] MEDS: HEPARIN NA (PORCINE) 5,000 UNITS/ML 1ML VIAL SQ SCH ×3 (06:13→14:40)
[2018-12-23 06:25] LABS: HEMOGLOBIN 8.6 GM/dL (10.7-15.3); MCH 27.7 pg (25.7-33.7); MCHC 32.9 g/dl (32.0-36.0); MEAN CELL VOLUME 84.2 fl (80-96); MEAN PLT VOLUME 7.3 fl (7.5-11.1); PLATELET COUNT 291 K/MM3 (134-434); RBC 3.09 M/mm3 (3.60-5.2); RDW 18.5 % (11.6-15.6); WHITE BLOOD COUNT 19.3 K/mm3 (4.0-10.0)
[2018-12-23 06:50] LABS: CALCIUM 8.6 mg/dL (8.5-10.1); CREATININE 0.8 mg/dL (0.55-1.3); MAGNESIUM 2.3 mg/dL (1.8-2.4); PHOSPHOROUS 1.2 mg/dL (2.5-4.9); POTASSIUM 3.4 mmol/L (3.5-5.1)
--- NOTE | 2018-12-23 08:43 | PN ---
Physical Exam: SUBJECTIVE: Patient seen and examined at bedside. Complains that her L arm hurts and wants dilaudid. No nausea/vomiting, tolerating diet. OVN glucose was 46, given D50. OBJECTIVE: Vital Signs Period Temp Pulse Resp BP Sys/Rapp Pulse Ox Last 24 Hr 97.4 F-98.8 F 83-107 12-22 106-157/47-110 100-100 GENERAL: A&Ox3, no acute distress EYES: PERRLA, EOMI ENT: Moist mucus membranes NECK: No JVD LUNGS: CTA, no wheezes HEART: RRR, no murmurs ABDOMEN: Soft, nontender, BS present MUSCULOSKELETAL: No CVA Tenderness EXTREMITIES: 2+ pulses, no edema. NEUROLOGICAL: Cranial nerves II-XII intact. Laboratory Results - last 24 hr 12/22/18 12/22/18 12/22/18 06:00 08:30 08:50 WBC RBC Hgb Hct MCV MCH MCHC RDW Plt Count MPV Neutrophils % (Manual) 91.0 H Band Neutrophils % 0.0 Lymphocytes % (Manual) 8.0 D Monocytes % (Manual) 1 L Eosinophils % (Manual) 0.0 D Basophils % (Manual) 0.0 Myelocytes % (Man) 0 D Promyelocytes % (Man) 0 Blast Cells % (Manual) 0 Metamyelocytes 0 Hypochromia 0 Platelet Estimate Normal Polychromasia 0 Poikilocytosis 0 Anisocytosis 1+ Microcytosis 1+ Macrocytosis 0 Ovalocytes 1+ Anticoagulation Therapy VBG pH POC VBG pCO2 POC VBG pO2 VBG HCO3 VBG O2 Sat (Lexi) VBG Base Excess O2 Delivery Device Oxygen Flow Rate Vent Mode Vent Rate Mechanical Rate Pressure Support Vent Sodium Potassium Chloride Carbon Dioxide Anion Gap BUN Creatinine Est GFR (CKD-EPI)AfAm Est GFR (CKD-EPI)NonAf POC Glucometer Random Glucose Lactic Acid Calcium Phosphorus Magnesium Urine Color Yellow Cancelled Urine Appearance Cloudy Cancelled Urine pH 5.5 Cancelled Ur Specific [place] 1.028 Urine Protein 1+ H Cancelled Urine Glucose (UA) 3+ H Cancelled Urine Ketones 3+ H Cancelled Urine Blood Negative Cancelled Urine Nitrite Negative Cancelled Urine Bilirubin Negative Cancelled Urine Urobilinogen 0.2 Cancelled Ur Leukocyte Esterase Negative Cancelled Urine WBC (Auto) 3 Urine Casts (Auto) 8 U Epithel Cells (Auto) 19.5 Urine Bacteria (Auto) 106.7 Urine HCG, Qual 12/22/18 12/22/18 12/22/18 08:50 08:50 08:50 WBC RBC Hgb Hct MCV MCH MCHC RDW Plt Count MPV Neutrophils % (Manual) Band Neutrophils % Lymphocytes % (Manual) Monocytes % (Manual) Eosinophils % (Manual) Basophils % (Manual) Myelocytes % (Man) Promyelocytes % (Man) Blast Cells % (Manual) Metamyelocytes Hypochromia Platelet Estimate Polychromasia Poikilocytosis Anisocytosis Microcytosis Macrocytosis Ovalocytes Anticoagulation Therapy No Result Required. VBG pH POC VBG pCO2 POC VBG pO2 VBG HCO3 VBG O2 Sat (Lexi) VBG Base Excess O2 Delivery Device No Result Required. Oxygen Flow Rate No Result Required. Vent Mode No Result Required. Vent Rate No Result Required. Mechanical Rate No Result Required. Pressure Support Vent No Result Required. Sodium 139 Potassium 4.5 Chloride 106 Carbon Dioxide 20 L Anion Gap 12 BUN 27.7 H Creatinine 1.1 Est GFR (CKD-EPI)AfAm 68.27 Est GFR (CKD-EPI)NonAf 58.91 POC Glucometer Random Glucose 236 H Lactic Acid Calcium 9.1 Phosphorus Magnesium Urine Color Urine Appearance Urine pH Ur Specific [place] Urine Protein Urine Glucose (UA) Urine Ketones Urine Blood Urine Nitrite Urine Bilirubin Urine Urobilinogen Ur Leukocyte Esterase Urine WBC (Auto) Urine Casts (Auto) U Epithel Cells (Auto) Urine Bacteria (Auto) Urine HCG, Qual Negative 12/22/18 12/22/18 12/22/18 08:50 09:18 11:35 WBC RBC Hgb Hct MCV MCH MCHC RDW Plt Count MPV Neutrophils % (Manual) Band Neutrophils % Lymphocytes % (Manual) Monocytes % (Manual) Eosinophils % (Manual) Basophils % (Manual) Myelocytes % (Man) Promyelocytes % (Man) Blast Cells % (Manual) Metamyelocytes Hypochromia Platelet Estimate Polychromasia Poikilocytosis Anisocytosis Microcytosis Macrocytosis Ovalocytes Anticoagulation Therapy VBG pH 7.35 POC VBG pCO2 33.6 L POC VBG pO2 44.4 H VBG HCO3 18.3 L VBG O2 Sat (Lexi) 77.0 VBG Base Excess 6.0 H O2 Delivery Device Oxygen Flow Rate Vent Mode Vent Rate Mechanical Rate Pressure Support Vent Sodium Potassium Chloride Carbon Dioxide Anion Gap BUN Creatinine Est GFR (CKD-EPI)AfAm Est GFR (CKD-EPI)NonAf POC Glucometer 534 Random Glucose Lactic Acid 0.8 Calcium Phosphorus Magnesium Urine Color Urine Appearance Urine pH Ur Specific [place] Urine Protein Urine Glucose (UA) Urine Ketones Urine Blood Urine Nitrite Urine Bilirubin Urine Urobilinogen Ur Leukocyte Esterase Urine WBC (Auto) Urine Casts (Auto) U Epithel Cells (Auto) Urine Bacteria (Auto) Urine HCG, Qual 12/22/18 12/22/18 12/22/18 11:47 14:45 16:53 WBC RBC Hgb Hct MCV MCH MCHC RDW Plt Count MPV Neutrophils % (Manual) Band Neutrophils % Lymphocytes % (Manual) Monocytes % (Manual) Eosinophils % (Manual) Basophils % (Manual) Myelocytes % (Man) Promyelocytes % (Man) Blast Cells % (Manual) Metamyelocytes Hypochromia Platelet Estimate Polychromasia Poikilocytosis Anisocytosis Microcytosis Macrocytosis Ovalocytes Anticoagulation Therapy VBG pH POC VBG pCO2 POC VBG pO2 VBG HCO3 VBG O2 Sat (Lexi) VBG Base Excess O2 Delivery Device Oxygen Flow Rate Vent Mode Vent Rate Mechanical Rate Pressure Support Vent Sodium 136 Potassium 4.4 Chloride 104 Carbon Dioxide 9 L Anion Gap 24 H BUN 23.8 H Creatinine 1.1 Est GFR (CKD-EPI)AfAm 68.27 Est GFR (CKD-EPI)NonAf 58.91 POC Glucometer 170 137 Random Glucose 552 H* Lactic Acid Calcium 8.8 Phosphorus Magnesium Urine Color Urine Appearance Urine pH Ur Specific [place] Urine Protein Urine Glucose (UA) Urine Ketones Urine Blood Urine Nitrite Urine Bilirubin Urine Urobilinogen Ur Leukocyte Esterase Urine WBC (Auto) Urine Casts (Auto) U Epithel Cells (Auto) Urine Bacteria (Auto) Urine HCG, Qual 12/22/18 12/22/18 12/22/18 19:30 22:38 23:45 WBC RBC Hgb Hct MCV MCH MCHC RDW Plt Count MPV Neutrophils % (Manual) Band Neutrophils % Lymphocytes % (Manual) Monocytes % (Manual) Eosinophils % (Manual) Basophils % (Manual) Myelocytes % (Man) Promyelocytes % (Man) Blast Cells % (Manual) Metamyelocytes Hypochromia Platelet Estimate Polychromasia Poikilocytosis Anisocytosis Microcytosis Macrocytosis Ovalocytes Anticoagulation Therapy VBG pH POC VBG pCO2 POC VBG pO2 VBG HCO3 VBG O2 Sat (Lexi) VBG Base Excess O2 Delivery Device Oxygen Flow Rate Vent Mode Vent Rate Mechanical Rate Pressure Support Vent Sodium 142 Potassium 3.6 Chloride 111 H Carbon Dioxide 22 Anion Gap 9 BUN 19.0 H Creatinine 1.0 Est GFR (CKD-EPI)AfAm 76.61 Est GFR (CKD-EPI)NonAf 66.10 POC Glucometer 49 147 Random Glucose 64 L Lactic Acid Calcium 8.9 Phosphorus Magnesium Urine Color Urine Appearance Urine pH Ur Specific [place] Urine Protein Urine Glucose (UA) Urine Ketones Urine Blood Urine Nitrite Urine Bilirubin Urine Urobilinogen Ur Leukocyte Esterase Urine WBC (Auto) Urine Casts (Auto) U Epithel Cells (Auto) Urine Bacteria (Auto) Urine HCG, Qual 12/23/18 12/23/18 12/23/18 05:25 05:25 05:26 WBC 19.3 H RBC 3.09 L Hgb 8.6 L Hct 26.0 L D MCV 84.2 MCH 27.7 MCHC 32.9 RDW 18.5 H Plt Count 291 D MPV 7.3 L Neutrophils % (Manual) Band Neutrophils % Lymphocytes % (Manual) Monocytes % (Manual) Eosinophils % (Manual) Basophils % (Manual) Myelocytes % (Man) Promyelocytes % (Man) Blast Cells % (Manual) Metamyelocytes Hypochromia Platelet Estimate Polychromasia Poikilocytosis Anisocytosis Microcytosis Macrocytosis Ovalocytes Anticoagulation Therapy VBG pH POC VBG pCO2 POC VBG pO2 VBG HCO3 VBG O2 Sat (Lexi) VBG Base Excess O2 Delivery Device Oxygen Flow Rate Vent Mode Vent Rate Mechanical Rate Pressure Support Vent Sodium 141 Potassium 3.4 L Chloride 113 H Carbon Dioxide 23 Anion Gap 6 L BUN 14.0 Creatinine 0.8 Est GFR (CKD-EPI)AfAm 100.33 Est GFR (CKD-EPI)NonAf 86.57 POC Glucometer 131 Random Glucose 127 H Lactic Acid Calcium 8.6 Phosphorus 1.2 L Magnesium 2.3 Urine Color Urine Appearance Urine pH Ur Specific [place] Urine Protein Urine Glucose (UA) Urine Ketones Urine Blood Urine Nitrite Urine Bilirubin Urine Urobilinogen Ur Leukocyte Esterase Urine WBC (Auto) Urine Casts (Auto) U Epithel Cells (Auto) Urine Bacteria (Auto) Urine HCG, Qual Active Medications Generic Name Dose Route Start Last Admin Trade Name Freq PRN Reason Stop Dose Admin Acetaminophen 1,000 mg 12/22/18 15:54 12/23/18 06:53 Ofirmev Injection - IVPB 1,000 mg Q6H PRN Administration PAIN LEVEL 4 - 6 Aspirin 81 mg 12/23/18 10:00 Asa - PO DAILY [facility] Atorvastatin Calcium 40 mg 12/22/18 22:00 12/22/18 21:33 Lipitor - PO 40 mg HS [facility] Administration Chlorhexidine Gluconate 1 applic 12/22/18 22:00 12/22/18 21:33 Hibiclens For Decolonization - TP 1 applic HS [facility] Administration Heparin Sodium (Porcine) 5,000 unit 12/22/18 22:00 12/23/18 06:13 Heparin - SQ Not Given TID [facility] Metronidazole 500 mg in 100 mls @ 100 mls/hr 12/22/18 18:00 12/23/18 01:47 Flagyl 500mg Premixed Ivpb - IVPB 100 mls/hr Q8H-IV [facility] Administration Potassium Chloride/Sodium Chloride 20 meq in 1,000 mls @ 100 mls/hr 12/22/18 15:54 12/22/18 17:33 Ns+20 Meq Kcl - IV 100 mls/hr ASDIR [facility] Administration Piperacillin Sod/Tazobactam 50 mls @ 100 mls/hr 12/22/18 18:00 Sod 3.375 gm/ Dextrose IVPB Q8H-IV [facility] Protocol Insulin Aspart 1 vial 12/22/18 17:00 12/23/18 05:33 Novolog Vial Sliding Scale - SQ Not Given Q6H [facility] Protocol Metoclopramide HCl 10 mg 12/22/18 15:54 Reglan Injection - IVPUSH Q6H PRN NAUSEA AND/OR VOMITING Mupirocin 1 applic 12/22/18 22:00 12/22/18 21:32 Bactroban Ointment (For Decolonization) - NS 12/27/18 09:59 1 applic BID [facility] Administration Ondansetron HCl 4 mg 12/22/18 15:54 Zofran Injection IVPUSH Q6H PRN NAUSEA AND/OR VOMITING Pantoprazole Sodium 40 mg 12/23/18 10:00 Protonix Iv IVPUSH DAILY [facility] Potassium Chloride 40 meq 12/23/18 08:45 K-Dur - PO 12/23/18 08:46 ONCE ONE Potassium Phos/Sodium Phos 1 packet 12/23/18 08:45 Phos-Nak Packet - PO 12/23/18 08:46 ONCE ONE Vancomycin HCl 1,000 mg 12/23/18 10:00 Vancomycin (Pre-Docked) IVPB DAILY [facility] Protocol ASSESSMENT/PLAN: 48yo F with h/o CVA (L sided hemiparesis), T1DM?, multiple admissions for DKA, HTN, HLD, and recent hospitalization at [facility] in September 2018 for SBO who presents to [facility] with complaint of 3 days worth of nausea, NB/NB vomiting, diarrhea, and abdominal pain and admitted for evaluation and management of diabetic ketoacidosis Neurologic no active issues Cardiovascular no active issues BP 137/87 Pulmonary saturating well, no acute complaints Gastrointestinal no further abdominal pain or nausea has not had diarrhea while here treated with vanc/zosyn/flagyl for probably colitis, which is resolving - DC abx Endocrine admitted for DKA, now resolved with closed gap and normal bicarb was hypoglycemic overnight, given D50 and glucose improved will decrease levemir to 8U in the morning and continue sliding scale coverage to determine dose requirements diabetic diet lactic acidosis resolved Prophylaxis heparin 5000 subq TID Disposition -can tx to med surg -tramadol for pain Visit type - Emergency Visit Emergency Visit: No - New Patient This patient is new to me today: No - Critical Care Critical Care patient: No
[2018-12-23] MEDS ORDERED: NAPH,MB-DB/K PH,MBDB POWDER PACKET PO ONE (08:45)
[2018-12-23] MEDS: ASPIRIN 81 MG CHEWABLE TABLETS PO SCH (09:30)
[2018-12-23] MEDS: ONDANSETRON 4 MG/2 ML VIAL IVPUSH PRN (09:30)
[2018-12-23] MEDS: POTASSIUM CHLORIDE TABS 20 MEQ TABLET.ER (FP) PO ONE ×2 (09:30→16:34)
[2018-12-23] MEDS: PANTOPRAZOLE SODIUM 40 MG VIAL IVPUSH SCH (09:30)
[2018-12-23] MEDS: MUPIROCIN 2% TOPICAL OINTMENT FOR DECOLONIZATION NS SCH ×2 (09:31→21:12)
[2018-12-23] MEDS ORDERED: VANCOMYCIN 1 GM in D5W (PRE-DOCKED) 1,000 MG/250 ML IVPB SCH (10:00)
--- NOTE | 2018-12-23 12:06 | PN ---
Teaching Attending Note Name of Resident: Nikita Armenta ATTENDING PHYSICIAN STATEMENT I saw and evaluated the patient. I reviewed the resident's note and discussed the case with the resident. I agree with the resident's findings and plan as documented. SUBJECTIVE: Pt seen and examined in the ICU. Remains off insulin gtt. c/o abdominal pain. No diarrhea. No fevers or chills. OBJECTIVE: Vital Signs Period Temp Pulse Resp BP Sys/Rapp Pulse Ox Last 24 Hr 97.4 F-98.8 F 81-98 12-22 106-154/47-110 100-100 Intake & Output 12/20/18 12/21/18 12/22/18 12/23/18 23:59 23:59 23:59 23:59 Intake Total 1325 4230 300 Output Total 2880 800 Balance 1325 1350 -500 Weight 58.967 kg 57.334 kg 57.47 kg Gen: NAD at rest Heart: RRR Lung: decreased breath sounds at the bases Abd: soft, nontender Ext: no edema CBC, BMP 12/23/18 05:25 12/23/18 05:25 Active Medications Acetaminophen (Ofirmev Injection -) 1,000 mg IVPB Q6H PRN PRN Reason: PAIN LEVEL 4 - 6 Last Admin: 12/23/18 06:53 Dose: 1,000 mg Aspirin (Asa -) 81 mg PO DAILY [facility] Last Admin: 12/23/18 09:30 Dose: 81 mg Atorvastatin Calcium (Lipitor -) 40 mg PO HS [facility] Last Admin: 12/22/18 21:33 Dose: 40 mg Chlorhexidine Gluconate (Hibiclens For Decolonization -) 1 applic TP HS [facility] Last Admin: 12/22/18 21:33 Dose: 1 applic Heparin Sodium (Porcine) (Heparin -) 5,000 unit SQ TID [facility] Last Admin: 12/23/18 06:13 Dose: Not Given Potassium Chloride/Sodium Chloride (Ns+20 Meq Kcl -) 20 meq in 1,000 mls @ 100 mls/hr IV ASDIR [facility] Last Admin: 12/22/18 17:33 Dose: 100 mls/hr Insulin Aspart (Novolog Vial Sliding Scale -) 1 vial SQ ACHS [facility]; Protocol Last Admin: 12/23/18 11:23 Dose: 12 units Metoclopramide HCl (Reglan Injection -) 10 mg IVPUSH Q6H PRN PRN Reason: NAUSEA AND/OR VOMITING Mupirocin (Bactroban Ointment (For Decolonization) -) 1 applic NS BID [facility] Stop: 12/27/18 09:59 Last Admin: 12/23/18 09:31 Dose: 1 applic Ondansetron HCl (Zofran Injection) 4 mg IVPUSH Q6H PRN PRN Reason: NAUSEA AND/OR VOMITING Last Admin: 12/23/18 09:30 Dose: 4 mg Pantoprazole Sodium (Protonix Iv) 40 mg IVPUSH DAILY [facility] Last Admin: 12/23/18 09:30 Dose: 40 mg Tramadol HCl (Ultram -) 50 mg PO Q6H PRN PRN Reason: PAIN LEVEL 6-10 ASSESSMENT AND PLAN: Diabetic Ketoacidosis resolving Lactic Acidosis resolved Acute Kidney Injury improving Hyperlipidemia h/o Noncompliance - glucose control - monitor BGM, BMP - IVF - PO as tolerated - pain control - can monitor off antibiotics pending cultures - DVT prophylaxis - can monitor on floor
[2018-12-23 13:31] VITALS: BMI 20.3
--- NOTE | 2018-12-23 14:05 | PN ---
Progress Note, Physician Chief Complaint: nausea and vomiting History of Present Illness: patient complaining of arm and abdominal pain, requesting pain meds, no acute events overnight - Current Medication List Current Medications: Active Medications Acetaminophen (Ofirmev Injection -) 1,000 mg IVPB Q6H PRN PRN Reason: PAIN LEVEL 4 - 6 Last Admin: 12/23/18 06:53 Dose: 1,000 mg Aspirin (Asa -) 81 mg PO DAILY [facility] Last Admin: 12/23/18 09:30 Dose: 81 mg Atorvastatin Calcium (Lipitor -) 40 mg PO HS [facility] Last Admin: 12/22/18 21:33 Dose: 40 mg Chlorhexidine Gluconate (Hibiclens For Decolonization -) 1 applic TP HS [facility] Last Admin: 12/22/18 21:33 Dose: 1 applic Heparin Sodium (Porcine) (Heparin -) 5,000 unit SQ TID [facility] Last Admin: 12/23/18 06:13 Dose: Not Given Potassium Chloride/Sodium Chloride (Ns+20 Meq Kcl -) 20 meq in 1,000 mls @ 100 mls/hr IV ASDIR [facility] Last Admin: 12/22/18 17:33 Dose: 100 mls/hr Insulin Aspart (Novolog Vial Sliding Scale -) 1 vial SQ ACHS [facility]; Protocol Last Admin: 12/23/18 11:23 Dose: 12 units Metoclopramide HCl (Reglan Injection -) 10 mg IVPUSH Q6H PRN PRN Reason: NAUSEA AND/OR VOMITING Mupirocin (Bactroban Ointment (For Decolonization) -) 1 applic NS BID [facility] Stop: 12/27/18 09:59 Last Admin: 12/23/18 09:31 Dose: 1 applic Ondansetron HCl (Zofran Injection) 4 mg IVPUSH Q6H PRN PRN Reason: NAUSEA AND/OR VOMITING Last Admin: 12/23/18 09:30 Dose: 4 mg Pantoprazole Sodium (Protonix Iv) 40 mg IVPUSH DAILY [facility] Last Admin: 12/23/18 09:30 Dose: 40 mg Tramadol HCl (Ultram -) 50 mg PO Q6H PRN PRN Reason: PAIN LEVEL 6-10 - Objective Vital Signs: Vital Signs Temperature 98 F 12/23/18 09:00 Pulse Rate 84 12/23/18 12:00 Respiratory Rate 22 H 12/23/18 12:00 Blood Pressure 122/79 12/23/18 12:00 O2 Sat by Pulse Oximetry (%) 100 12/23/18 09:00 Constitutional: Yes: No Distress, Poor Hygeine Cardiovascular: Yes: WNL, Regular Rate and Rhythm Respiratory: Yes: WNL, Regular, CTA Bilaterally Gastrointestinal: Yes: WNL, Normal Bowel Sounds, Soft Musculoskeletal: Yes: WNL Extremities: Yes: WNL Edema: No Labs: CBC, BMP 12/23/18 05:25 12/23/18 05:25 Problem List - Problems (1) DKA (diabetic ketoacidoses) Code(s): E13.10 - OTH DIABETES MELLITUS WITH KETOACIDOSIS WITHOUT COMA Qualifiers: Diabetes mellitus type: type 1 Diabetes mellitus complication detail: without coma Qualified Code(s): E10.10 - Type 1 diabetes mellitus with ketoacidosis without coma (2) H/O Clostridium difficile infection Code(s): Z86.19 - PERSONAL HISTORY OF OTHER INFECTIOUS AND PARASITIC DISEASES (3) Hypercholesteremia Code(s): E78.00 - PURE HYPERCHOLESTEROLEMIA, UNSPECIFIED (4) GIANCARLO (acute kidney injury) Code(s): N17.9 - ACUTE KIDNEY FAILURE, UNSPECIFIED (5) Cerebrovascular accident (CVA) Code(s): I63.9 - CEREBRAL INFARCTION, UNSPECIFIED Qualifiers: CVA mechanism: unspecified Qualified Code(s): I63.9 - Cerebral infarction, unspecified Assessment/Plan Assessment: DKA HLD Hx Cdiff Clavicular fracture Plan: DKA resolved, patient now on levemir and ISS, should be on basal dosing as well , will start no indication for abx, DC no diarrhea, DC flagyl blood cultures neg replete lytes as needed pain control, try to avoid opiates left arm sling cw statin antiemetics as needed transfer to floors
--- NOTE | 2018-12-23 14:18 | PN ---
Progress Note, Physician History of Present Illness: stable no complaints in icu recovering well - Current Medication List Current Medications: Active Medications Acetaminophen (Tylenol -) 650 mg PO Q4H PRN PRN Reason: pain scale 4-6 Aspirin (Asa -) 81 mg PO DAILY [facility] Last Admin: 12/23/18 09:30 Dose: 81 mg Atorvastatin Calcium (Lipitor -) 40 mg PO HS [facility] Last Admin: 12/22/18 21:33 Dose: 40 mg Chlorhexidine Gluconate (Hibiclens For Decolonization -) 1 applic TP HS [facility] Last Admin: 12/22/18 21:33 Dose: 1 applic Heparin Sodium (Porcine) (Heparin -) 5,000 unit SQ TID [facility] Last Admin: 12/23/18 06:13 Dose: Not Given Potassium Chloride/Sodium Chloride (Ns+20 Meq Kcl -) 20 meq in 1,000 mls @ 100 mls/hr IV ASDIR [facility] Last Admin: 12/22/18 17:33 Dose: 100 mls/hr Insulin Aspart (Novolog Vial Sliding Scale -) 1 vial SQ [facility]; Protocol Last Admin: 12/23/18 11:23 Dose: 12 units Metoclopramide HCl (Reglan Injection -) 10 mg IVPUSH Q6H PRN PRN Reason: NAUSEA AND/OR VOMITING Mupirocin (Bactroban Ointment (For Decolonization) -) 1 applic NS BID [facility] Stop: 12/27/18 09:59 Last Admin: 12/23/18 09:31 Dose: 1 applic Ondansetron HCl (Zofran Injection) 4 mg IVPUSH Q6H PRN PRN Reason: NAUSEA AND/OR VOMITING Last Admin: 12/23/18 09:30 Dose: 4 mg Pantoprazole Sodium (Protonix Iv) 40 mg IVPUSH DAILY [facility] Last Admin: 12/23/18 09:30 Dose: 40 mg Tramadol HCl (Ultram -) 50 mg PO Q6H PRN PRN Reason: PAIN LEVEL 6-10 - Objective Vital Signs: Vital Signs Temperature 98 F 12/23/18 09:00 Pulse Rate 84 12/23/18 12:00 Respiratory Rate 22 H 12/23/18 12:00 Blood Pressure 122/79 12/23/18 12:00 O2 Sat by Pulse Oximetry (%) 100 12/23/18 09:00 Constitutional: Yes: Calm, Mild Distress Cardiovascular: Yes: S1, S2 Respiratory: Yes: Regular, CTA Bilaterally Gastrointestinal: Yes: Normal Bowel Sounds, Soft Musculoskeletal: Yes: WNL Extremities: Yes: WNL Neurological: Yes: Alert, Oriented Psychiatric: Yes: Alert, Oriented Labs: CBC, BMP 12/23/18 05:25 12/23/18 05:25 - ....Imaging Chest X-ray: Report Reviewed, Image Reviewed Assessment/Plan ASSESSMENT AND PLAN: Diabetic Ketoacidosis resolving Lactic Acidosis resolved Acute Kidney Injury improving Hyperlipidemia h/o Noncompliance - glucose control - monitor BGM, BMP - IVF - PO as tolerated - pain control urine cx noted will not start any abx cc 35 min
[2018-12-23] MEDS: METOCLOPRAMIDE HCL INJECTION 10 MG/2 ML VIAL IVPUSH PRN (14:53)
[2018-12-23] MEDS ORDERED: RIVAROXABAN 15 MG TABLET PO ONE (15:47)
[2018-12-23] MEDS ORDERED: HYDROmorphone HCl 2 MG/ML VIAL IVPUSH ONE ×2 (15:50→21:14)
[2018-12-23] MEDS: predniSONE 20 MG TABLET (UD) PO SCH (16:30)
[2018-12-23] MEDS: SODIUM CHLORIDE 0.9%/KCL 20 MEQ/1,000 ML INFUS.BAG IV SCH (16:33)
[2018-12-23] MEDS: INSULIN (NOVOLOG) ASPART 100 UNITS/ML 10ML VIAL SQ SCH (16:44)
[2018-12-23] MEDS ORDERED: PT OWN MED DRAWER 7, Y5N ONE (18:50)
[2018-12-23] MEDS: GABAPENTIN 300 MG CAPSULE (FP) PO SCH (21:09)
[2018-12-23] MEDS: ATORVASTATIN CA 40 MG TABLET (FP) PO SCH (21:09)
[2018-12-23] MEDS: RIVAROXABAN 15 MG TABLET PO SCH (21:10)
[2018-12-23] MEDS: CHLORHEXIDINE GLUCONATE 4% CLEANSER FOR DECOLONIZATION TP SCH (21:11)
[2018-12-23] MEDS ORDERED: INSULIN (LEVEMIR) 100 UNITS/ML UNITS SQ SCH (22:00)
[2018-12-24] MEDS: traMADol HCL 50 MG TABLET PO PRN ×3 (06:02→21:49)
[2018-12-24] MEDS: INSULIN (NOVOLOG) ASPART 100 UNITS/ML 10ML VIAL SQ SCH ×3 (06:03→18:31)
[2018-12-24] MEDS: INSULIN SLIDING SCALE (NOVOLOG) 1 VIAL SQ SCH ×4 (06:03→21:18)
[2018-12-24 06:23] LABS: BLOOD UREA NITROGEN 11.8 mg/dL (7-18); CALCIUM 8.4 mg/dL (8.5-10.1); CREATININE 0.6 mg/dL (0.55-1.3); HEMATOCRIT 25.4 % (32.4-45.2); HEMOGLOBIN 8.4 GM/dL (10.7-15.3); MCH 28.2 pg (25.7-33.7); MCHC 33.2 g/dl (32.0-36.0); MEAN PLT VOLUME 7.3 fl (7.5-11.1); PHOSPHOROUS 1.8 mg/dL (2.5-4.9); PLATELET COUNT 248 K/MM3 (134-434); POTASSIUM 4.4 mmol/L (3.5-5.1); RBC 2.99 M/mm3 (3.60-5.2); RDW 17.8 % (11.6-15.6); WHITE BLOOD COUNT 10.7 K/mm3 (4.0-10.0)
--- NOTE | 2018-12-24 07:53 | PN ---
Progress Note, Physician Chief Complaint: abdominal pain, high blood sugars History of Present Illness: 48 year old female with past medical history of HTN, CVA (left sided hemiparesis ), HLD, IDDM, DKA resulting in multiple admissions, dysphagia, gastroparesis, esophageal stricture (EGD 02/14), c/diff (10/2018), SBO September 2018 (s/p SB resection @ [facility] as per pt report) presented to [facility] on the afternoon of 12/21 with complaints of N/V/D/abd pain x 3 days. Associated symptoms include malaise, dizziness, fever (temp 103 on 12/20), chills, anorexia, urinary frequency and dysuria. Due to the severity of her symptoms pt sustained a mechanical fall, today 12/21, while at home. She landed on her left upper extremity and now reports pain and decreased ROM in affected extremity. Pt's clara decided to transport her via car to ED for evaluation due to worsening mental status. Upon arrival, BG level 439mg/dl, nausea/vomiting treated with Zofran, and morphine administered for Left arm pain. - Current Medication List Current Medications: Active Medications Acetaminophen (Tylenol -) 650 mg PO Q4H PRN PRN Reason: pain scale 4-6 Aspirin (Asa -) 81 mg PO DAILY [facility] Last Admin: 12/23/18 09:30 Dose: 81 mg Atorvastatin Calcium (Lipitor -) 40 mg PO HS [facility] Last Admin: 12/23/18 21:09 Dose: 40 mg Chlorhexidine Gluconate (Hibiclens For Decolonization -) 1 applic TP HS [facility] Last Admin: 12/23/18 21:11 Dose: 1 applic Gabapentin (Neurontin -) 300 mg PO BID [facility] Last Admin: 12/23/18 21:09 Dose: 300 mg Potassium Chloride/Sodium Chloride (Ns+20 Meq Kcl -) 20 meq in 1,000 mls @ 100 mls/hr IV ASDIR [facility] Last Admin: 12/23/18 16:33 Dose: 100 mls/hr Insulin Aspart (Novolog Vial Sliding Scale -) 1 vial SQ ACHS [facility]; Protocol Last Admin: 12/24/18 06:03 Dose: 6 units Insulin Aspart (Novolog Vial) 5 units SQ TIDAC [facility] Last Admin: 12/24/18 06:03 Dose: 5 units Insulin Detemir (Levemir Vial) 8 units SQ HS [facility] Last Admin: 12/23/18 21:08 Dose: 8 units Metoclopramide HCl (Reglan Injection -) 10 mg IVPUSH Q6H PRN PRN Reason: NAUSEA AND/OR VOMITING Last Admin: 12/23/18 14:53 Dose: 10 mg Mupirocin (Bactroban Ointment (For Decolonization) -) 1 applic NS BID [facility] Stop: 12/27/18 09:59 Last Admin: 12/23/18 21:12 Dose: 1 applic Ondansetron HCl (Zofran Injection) 4 mg IVPUSH Q6H PRN PRN Reason: NAUSEA AND/OR VOMITING Last Admin: 12/23/18 09:30 Dose: 4 mg Pantoprazole Sodium (Protonix Iv) 40 mg IVPUSH DAILY [facility] Last Admin: 12/23/18 09:30 Dose: 40 mg Prednisone (Deltasone -) 40 mg PO DAILY [facility] Last Admin: 12/23/18 16:30 Dose: 40 mg Quetiapine Fumarate (Seroquel -) 25 mg PO DAILY [facility] Rivaroxaban (Xarelto) 15 mg PO BID [facility] Last Admin: 12/23/18 21:10 Dose: Not Given Tramadol HCl (Ultram -) 50 mg PO Q6H PRN PRN Reason: PAIN LEVEL 6-10 Last Admin: 12/24/18 06:02 Dose: 50 mg - Objective Vital Signs: Vital Signs Temperature 97 F L 12/24/18 06:00 Pulse Rate 62 12/24/18 06:00 Respiratory Rate 16 12/24/18 06:00 Blood Pressure 120/67 12/24/18 06:00 O2 Sat by Pulse Oximetry (%) 100 12/23/18 19:46 Constitutional: Yes: Calm, Mild Distress, Thin Eyes: Yes: WNL, Conjunctiva Clear, EOM Intact HENT: Yes: WNL, Atraumatic, Normocephalic Neck: Yes: WNL, Supple, Trachea Midline Cardiovascular: Yes: WNL, Regular Rate and Rhythm Respiratory: Yes: WNL, Regular, Diminished (at bases) Gastrointestinal: Yes: WNL, Normal Bowel Sounds, Tenderness (diffuse) ...Rectal Exam: Yes: Deferred Genitourinary: Yes: WNL Musculoskeletal: Yes: Joint Swelling (lft shoulder/arm), Muscle Pain Edema: No Peripheral Pulses WNL: Yes Integumentary: Yes: WNL Neurological: Yes: WNL, Alert, Oriented ...Motor Strength: WNL Psychiatric: Yes: WNL, Alert, Oriented Labs: CBC, BMP 12/24/18 05:50 12/24/18 05:50 - ....Imaging Cat Scan: Report Reviewed (ABD CT: increased density of liver, ? thickenng in rectum vs. underdistention, resolution of previously noted colitis in the proximal colon,small bowel anastamosis,? thickening of small bowel.)) Problem List - Problems (1) DKA (diabetic ketoacidoses) Assessment/Plan: BGM >400 on admission started on regular insulin gtt in ICU and titrated to off BGM AC/qHS with novolog sliding scale coverage additiom of levemir 8u BID, may have to increase now eating full diet -trend electrolytes, maintain K>4.0, Mg >2.0 -call placed to Dr Tripp home plasterer spray gun-awaiting call back -consult placed for endocrinology here -spoke with diabetic nurse from [employer]-multiple attempts to teach patient on home use and both patient and nurse did not feel that the patient was safe to use pump (Contact rep Dea Young [phone] Code(s): E13.10 - OTH DIABETES MELLITUS WITH KETOACIDOSIS WITHOUT COMA Qualifiers: Diabetes mellitus type: type 1 Diabetes mellitus complication detail: without coma Qualified Code(s): E10.10 - Type 1 diabetes mellitus with ketoacidosis without coma (2) Abdominal pain Assessment/Plan: continue diebateic diet as tolerate PPI BID vomiting subsided, nauesea persists,PRN Zofran Dr Kilpatrick's consult greatly appreciated- Dr Mark called office to speak with Dr. Ortiz at [facility] [phone]. Left message as no one answered along with second called placed by myself. Spoke with [facility] yesterday and medical records are being faxed to ICU Pt had appointment scheduled for tomorrow for GI F/u, which try to reschedule for later date Continue Prednisone 40mg once daily for now. calcium with vitamin D qd started diet advanced to diabetic diet and tolerateing Code(s): R10.9 - UNSPECIFIED ABDOMINAL PAIN (3) C. difficile diarrhea Assessment/Plan: no further episodes of diarrhea continue IV Flagyl 500mg TID isolation precautions will send cdif if diarrhea reoccurs Code(s): A04.72 - ENTEROCOLITIS D/T CLOSTRIDIUM DIFFICILE, NOT SPCF RECUR (4) Clavicle fracture Assessment/Plan: clavicle fracture seen on CXR s/p multiple falls in past apply sling to left arm tramadol prn for pain Code(s): S42.009A - FRACTURE OF UNSP PART OF UNSP CLAVICLE, INIT FOR CLOS FX Qualifiers: Encounter type: initial encounter Clavicle location: lateral end Fracture type: closed Fracture alignment: displaced Laterality: left Qualified Code(s): S42.032A - Displaced fracture of lateral end of left clavicle , initial encounter for closed fracture (5) Prophylactic measure Assessment/Plan: FEN diabeteic diet trend electrolytes, maintain K>4.0, Mg >2.0 dc IVF DVT proph heparin sq TID PPI Dispo mainatin in ICU until tele bed is available full code discharge planning Code(s): Z29.9 - ENCOUNTER FOR PROPHYLACTIC MEASURES, UNSPECIFIED (6) Leukocytosis Code(s): D72.829 - ELEVATED WHITE BLOOD CELL COUNT, UNSPECIFIED (7) Hypercholesteremia Assessment/Plan: continue atorvastatin Code(s): E78.00 - PURE HYPERCHOLESTEROLEMIA, UNSPECIFIED (8) Falls frequently Assessment/Plan: history of multiple falls at home fall precautions while here Code(s): R29.6 - REPEATED FALLS Impression/Plan Impression/Plan: Obtained records from [facility]. Patient was admitted for a crohn's flare from 11/28 - complicated by acute on chronic pulmonary embolism. She was discharged on prednisone 40mg daily and xarelto 15 BID. Will restart these medications. Visit type - Emergency Visit Emergency Visit: Yes ED Registration Date: 12/21/18 Care time: The patient presented to the Emergency Department on the above date and was hospitalized for further evaluation of their emergent condition. - New Patient This patient is new to me today: No - Critical Care Critical Care patient: No - Discharge Referral Referred to [facility] Med P.C.: No
[2018-12-24] MEDS: QUEtiapine FUMARATE 25 MG TABLET (FP) PO SCH (09:32)
[2018-12-24] MEDS: GABAPENTIN 300 MG CAPSULE (FP) PO SCH ×2 (09:32→21:09)
[2018-12-24] MEDS: PANTOPRAZOLE SODIUM 40 MG VIAL IVPUSH SCH (09:32)
[2018-12-24] MEDS: ASPIRIN 81 MG CHEWABLE TABLETS PO SCH (09:32)
[2018-12-24] MEDS: predniSONE 20 MG TABLET (UD) PO SCH (09:32)
[2018-12-24] MEDS: RIVAROXABAN 15 MG TABLET PO SCH ×2 (09:33→21:10)
[2018-12-24] MEDS: ACETAMINOPHEN 325 MG TABLET (FP) PO PRN ×2 (09:34→16:05)
[2018-12-24] MEDS: MUPIROCIN 2% TOPICAL OINTMENT FOR DECOLONIZATION NS SCH ×2 (09:34→21:19)
[2018-12-24] MEDS: ONDANSETRON 4 MG/2 ML VIAL IVPUSH PRN (09:53)
[2018-12-24] MEDS ORDERED: HYDROmorphone HCl 2 MG/ML VIAL IVPUSH ONE ×2 (10:13→17:32)
[2018-12-24] MEDS ORDERED: INSULIN (LEVEMIR) 100 UNITS/ML UNITS SQ SCH (10:15)
--- NOTE | 2018-12-24 12:03 | PN ---
Teaching Attending Note Name of Resident: Chencho Andrews ATTENDING PHYSICIAN STATEMENT I saw and evaluated the patient. I reviewed the resident's note and discussed the case with the resident. I agree with the resident's findings and plan as documented. SUBJECTIVE: Pt seen and examined in the ICU. Feels better today. Additional history obtained by staff with recent hospitalization where she was diagnosed with PE/ DVT, Crohn's started on anticoagulation and prednisone. Was to follow with GI appointment tomorrow. OBJECTIVE: Vital Signs Period Temp Pulse Resp BP Sys/Rapp Pulse Ox Last 24 Hr 97 F-98.9 F 62-94 13-20 90-128/57-86 98-100 Intake & Output 12/21/18 12/22/18 12/23/18 12/24/18 23:59 23:59 23:59 23:59 Intake Total 1325 4230 2450 1250 Output Total 2880 1700 400 Balance 1325 1350 750 850 Weight 58.967 kg 57.334 kg 57.153 kg 57.153 kg Gen: NAD at rest Heart: RRR Lung: decreased breath sounds at the bases Abd: soft, nontender Ext: no edema CBC, BMP 12/24/18 05:50 12/24/18 05:50 Active Medications Acetaminophen (Tylenol -) 650 mg PO Q4H PRN PRN Reason: pain scale 4-6 Last Admin: 12/24/18 09:34 Dose: 650 mg Aspirin (Asa -) 81 mg PO DAILY [facility] Last Admin: 12/24/18 09:32 Dose: 81 mg Atorvastatin Calcium (Lipitor -) 40 mg PO HS [facility] Last Admin: 12/23/18 21:09 Dose: 40 mg Chlorhexidine Gluconate (Hibiclens For Decolonization -) 1 applic TP HS [facility] Last Admin: 12/23/18 21:11 Dose: 1 applic Gabapentin (Neurontin -) 300 mg PO BID [facility] Last Admin: 12/24/18 09:32 Dose: 300 mg Potassium Chloride/Sodium Chloride (Ns+20 Meq Kcl -) 20 meq in 1,000 mls @ 100 mls/hr IV ASDIR [facility] Last Admin: 12/23/18 16:33 Dose: 100 mls/hr Insulin Aspart (Novolog Vial Sliding Scale -) 1 vial SQ ACHS [facility]; Protocol Last Admin: 12/24/18 11:03 Dose: 2 units Insulin Aspart (Novolog Vial) 5 units SQ TIDAC [facility] Last Admin: 12/24/18 11:03 Dose: 5 units Insulin Detemir (Levemir Vial) 8 units SQ BID@0700,2200 [facility] Last Admin: 12/24/18 11:03 Dose: 8 units Metoclopramide HCl (Reglan Injection -) 10 mg IVPUSH Q6H PRN PRN Reason: NAUSEA AND/OR VOMITING Last Admin: 12/23/18 14:53 Dose: 10 mg Mupirocin (Bactroban Ointment (For Decolonization) -) 1 applic NS BID [facility] Stop: 12/27/18 09:59 Last Admin: 12/24/18 09:34 Dose: 1 applic Ondansetron HCl (Zofran Injection) 4 mg IVPUSH Q6H PRN PRN Reason: NAUSEA AND/OR VOMITING Last Admin: 12/24/18 09:53 Dose: 4 mg Pantoprazole Sodium (Protonix Iv) 40 mg IVPUSH DAILY [facility] Last Admin: 12/24/18 09:32 Dose: 40 mg Prednisone (Deltasone -) 40 mg PO DAILY [facility] Last Admin: 12/24/18 09:32 Dose: 40 mg Quetiapine Fumarate (Seroquel -) 25 mg PO DAILY [facility] Last Admin: 12/24/18 09:32 Dose: 25 mg Rivaroxaban (Xarelto) 15 mg PO BID [facility] Last Admin: 12/24/18 09:33 Dose: 15 mg Tramadol HCl (Ultram -) 50 mg PO Q6H PRN PRN Reason: PAIN LEVEL 6-10 Last Admin: 12/24/18 06:02 Dose: 50 mg ASSESSMENT AND PLAN: Diabetic Ketoacidosis resolving Lactic Acidosis resolved Acute Kidney Injury improving Hyperlipidemia h/o PE Crohn's on prednisone h/o Noncompliance - glucose control - monitor BGM, BMP - IVF - PO as tolerated - pain control - continue anticoagulation - DVT prophylaxis - can monitor on floor
--- NOTE | 2018-12-24 12:10 | PN ---
Progress Note, Physician - Current Medication List Current Medications: Active Medications Acetaminophen (Tylenol -) 650 mg PO Q4H PRN PRN Reason: pain scale 4-6 Last Admin: 12/24/18 09:34 Dose: 650 mg Aspirin (Asa -) 81 mg PO DAILY [facility] Last Admin: 12/24/18 09:32 Dose: 81 mg Atorvastatin Calcium (Lipitor -) 40 mg PO HS [facility] Last Admin: 12/23/18 21:09 Dose: 40 mg Chlorhexidine Gluconate (Hibiclens For Decolonization -) 1 applic TP HS [facility] Last Admin: 12/23/18 21:11 Dose: 1 applic Gabapentin (Neurontin -) 300 mg PO BID [facility] Last Admin: 12/24/18 09:32 Dose: 300 mg Potassium Chloride/Sodium Chloride (Ns+20 Meq Kcl -) 20 meq in 1,000 mls @ 100 mls/hr IV ASDIR [facility] Last Admin: 12/23/18 16:33 Dose: 100 mls/hr Insulin Aspart (Novolog Vial Sliding Scale -) 1 vial SQ ACHS [facility]; Protocol Last Admin: 12/24/18 11:03 Dose: 2 units Insulin Aspart (Novolog Vial) 5 units SQ TIDAC [facility] Last Admin: 12/24/18 11:03 Dose: 5 units Insulin Detemir (Levemir Vial) 8 units SQ BID@0700,2200 [facility] Last Admin: 12/24/18 11:03 Dose: 8 units Metoclopramide HCl (Reglan Injection -) 10 mg IVPUSH Q6H PRN PRN Reason: NAUSEA AND/OR VOMITING Last Admin: 12/23/18 14:53 Dose: 10 mg Mupirocin (Bactroban Ointment (For Decolonization) -) 1 applic NS BID [facility] Stop: 12/27/18 09:59 Last Admin: 12/24/18 09:34 Dose: 1 applic Ondansetron HCl (Zofran Injection) 4 mg IVPUSH Q6H PRN PRN Reason: NAUSEA AND/OR VOMITING Last Admin: 12/24/18 09:53 Dose: 4 mg Pantoprazole Sodium (Protonix Iv) 40 mg IVPUSH DAILY [facility] Last Admin: 12/24/18 09:32 Dose: 40 mg Prednisone (Deltasone -) 40 mg PO DAILY [facility] Last Admin: 12/24/18 09:32 Dose: 40 mg Quetiapine Fumarate (Seroquel -) 25 mg PO DAILY [facility] Last Admin: 12/24/18 09:32 Dose: 25 mg Rivaroxaban (Xarelto) 15 mg PO BID [facility] Last Admin: 12/24/18 09:33 Dose: 15 mg Tramadol HCl (Ultram -) 50 mg PO Q6H PRN PRN Reason: PAIN LEVEL 6-10 Last Admin: 12/24/18 06:02 Dose: 50 mg - Objective Vital Signs: Vital Signs Temperature 97.9 F 12/24/18 10:00 Pulse Rate 85 12/24/18 12:00 Respiratory Rate 20 12/24/18 12:00 Blood Pressure 121/70 12/24/18 12:00 O2 Sat by Pulse Oximetry (%) 98 12/24/18 09:00 Labs: CBC, BMP 12/24/18 05:50 12/24/18 05:50
--- NOTE | 2018-12-24 13:50 | CON.GI ---
Consult Consult Specialty:: GI Referred by:: Hospitalist Service Reason for Consultation:: Crohn's Disease - History of Present Illness Chief Complaint: I had abdominal pain, nausea, vomiting History of Present Illness: 48F admitted for evaluation of abdominal pain, nausea and vomiting. Described diarrhea at home. No BM since admission. She was treated for DKA and has had multiple episodes of DKA. She states that she previously used an insulin pump at home but needs to be retrained to use it. States being discharged from [facility] 12/14,where she had been admitted for 2 weeks. She believes that the reason for that admission at that time was for shortness of breath and abdominal pain. She was admitted to [facility] in 09/15and she alludes to having has surgery for small bowel obstruction. At this time she thinhs she may have been told about a "clot in her leg". She also states that she was referred to secretary office clerk Dr. Scar Robertson at [facility] by her previous secretary office clerk Dr. Jj Ortiz "because he could not do anything more for her". Dr. Ortiz had performed esophageal dilations on Ms. Rosas for suspected peptic stricture. She states that she was diagnosed with Crohn's disease based on "tests" (possibly and MRI). She states having had a colonoscopy 2 weeks ago at [facility] that led to the removal of 2 polyps. She does not recall being told of colitis. She was treated for P.E. and was placed on Prednisone 40mg once daily. She was supposed to follow-up with her secretary office clerk at [facility] tomorrow (she believes that she was going to see one or Dr. Robertson's associates, either a Dr. Sultana or Angel. Dr. Ortiz is listed in the [facility] list of gastroenterologists on their website). She is hungry and she denies nausea. There has been no diarrhea since admission. 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 ? small bowel crohn's) , Other (Gastroparesis, esophageal stricture) ...LMP: 04/14/13 ...: No Heme/Onc: Yes: Other (DVT (possibly right leg, possibly in 09/15), PE (12/16)) Musculoskeletal: Yes: Chronic low back pain Endocrine: Yes: Diabetes Mellitus (DM II) Additional Medical History: dka in the past - Past Surgical History Past Surgical History: Yes: Cholecystectomy (Laparoscopic) - Alcohol/Substance Use Hx Alcohol Use: No History of Substance Use: reports: None - Smoking History Smoking history: Current every day smoker Have you smoked in the past 12 months: Yes Aproximately how many cigarettes per day: 10 - Social History ADL: Independent Occupation: Unemployed Place of : [facility] History of Recent Travel: No Home Medications - Allergies Allergies/Adverse Reactions: Allergies Allergy/AdvReac Type Severity Reaction Status Date / Time No Known Allergies Allergy Verified 12/21/18 17:43 - Home Medications Home Medications: Ambulatory Orders Insulin Detemir [Levemir Flextouch] 25 unit SQ DAILY #3 insuln.pen 06/20/18 Aspirin 81 mg PO DAILY #30 tab.chew 08/13/18 Aspirin [ASA -] 81 mg PO DAILY tab.chew 08/13/18 Atorvastatin Ca [Lipitor] 40 mg PO HS #30 tablet 08/13/18 Gabapentin 300 mg PO BID 12/23/18 Quetiapine Fumarate [Seroquel -] 25 mg PO DAILY 12/23/18 Rivaroxaban [Xarelto] 15 mg PO BID 12/23/18 Family Disease History - Family Disease History Family Disease History: Heart Disease: Father (cad), Other: Mother (Alive (70) well) Review of Systems - Review of Systems Cardiovascular: denies: Chest Pain Respiratory: denies: SOB Gastrointestinal: reports: Abdominal Pain (Improved), Diarrhea (None since admission), Nausea, Vomiting (improved). denies: Melena Physical Exam-GI Vital Signs: Vital Signs Temperature 98.1 F 12/24/18 13:31 Pulse Rate 86 12/24/18 13:31 Respiratory Rate 20 12/24/18 13:31 Blood Pressure 109/72 12/24/18 13:31 O2 Sat by Pulse Oximetry (%) 98 12/24/18 09:00 Constitutional: Yes: Calm Eyes: No: Sclera Icterus Cardiovascular: Yes: Regular Rate and Rhythm. No: Murmur Respiratory: Yes: CTA Bilaterally Gastrointestinal Inspection: Yes: Scars (healed upper abdominal trochar scars, + Midline vertical surgical scar). No: Distention ...Auscultate: Yes: Normoactive Bowel Sounds ...Palpate: Yes: Soft. No: Hepatomegaly, Splenomegaly, Tenderness Edema: No (No LE edema) Neurological: Yes: Alert, Oriented Labs: CBC, BMP 12/24/18 05:50 12/24/18 05:50 Hepatic Panel Total Bilirubin 0.4 mg/dL (0.2-1) 12/22/18 05:20 AST 7 U/L (15-37) L 12/22/18 05:20 ALT 19 U/L (13-61) 12/22/18 05:20 Alkaline Phosphatase 108 U/L (45-117) 12/22/18 05:20 Albumin 3.6 g/dl (3.4-5.0) 12/22/18 05:20 Imaging - Results Cat Scan: Report Reviewed (increased density of liver, ? thickenng in rectum vs. underdistention, resolution of previously noted colitis in the proximal colon,small bowel anastamosis,? thickening of small bowel.) Problem List - Problems (1) Vomiting Assessment/Plan: Resolved. Suspect secondary to DKA as was her abdominal pain and leukocytosis Code(s): R11.10 - VOMITING, UNSPECIFIED Qualifiers: Vomiting type: unspecified Vomiting Intractability: non-intractable Nausea presence: with nausea Qualified Code(s): R11.2 - Nausea with vomiting, unspecified (2) Diarrhea Assessment/Plan: Patient denies diarrhea currently Code(s): R19.7 - DIARRHEA, UNSPECIFIED (3) Crohn's disease Assessment/Plan: Called office to speak with Dr. Ortiz at [facility] [phone]. Left message as no one answered. Would Continue to try to obtain information regarding her diagnosis of Crohn's and follow-up Continue Prednisone 40mg once daily for now. 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-up with her secretary office clerk prior to discharge as prednisone will need to be tapered Advance diet to chopped diabetic Code(s): K50.90 - CROHN'S DISEASE, UNSPECIFIED, WITHOUT COMPLICATIONS
[2018-12-24] MEDS: SODIUM CHLORIDE 0.9%/KCL 20 MEQ/1,000 ML INFUS.BAG IV SCH ×2 (14:02→16:04)
[2018-12-24] MEDS: CALCIUM 500MG/VIT-D 200 UNITS COMBO TABLET (FP) PO SCH (17:32)
[2018-12-24] MEDS ORDERED: INSULIN (NOVOLOG) ASPART 100 UNITS/ML 10ML VIAL SQ ONE (17:34)
--- NOTE | 2018-12-24 18:45 | PN ---
Physical Exam: SUBJECTIVE: Patient seen and examined at bedside. Pt has chronic complaints of pain, asking for Dilaudid. No current medical complaints, at baseline mentation OBJECTIVE: Vital Signs Period Temp Pulse Resp BP Sys/Rapp Pulse Ox Last 24 Hr 97 F-98.9 F 62-94 13-21 90-128/57-86 98-100 GENERAL: A&Ox3, no acute distress EYES: PERRLA, EOMI ENT: Moist mucus membranes NECK: No JVD LUNGS: CTA, no wheezes HEART: RRR, no murmurs ABDOMEN: Soft, nontender, BS present MUSCULOSKELETAL: No CVA Tenderness EXTREMITIES: 2+ pulses, no edema. NEUROLOGICAL: Cranial nerves II-XII intact. Laboratory Results - last 24 hr 12/22/18 12/23/18 12/24/18 08:50 20:55 05:50 WBC 10.7 H RBC 2.99 L Hgb 8.4 L Hct 25.4 L MCV 85.0 MCH 28.2 MCHC 33.2 RDW 17.8 H Plt Count 248 MPV 7.3 L Anticoagulation Therapy Cancelled Puncture Site Cancelled Patient Temperature Cancelled ABG pH Cancelled ABG pCO2 at Pt Temp Cancelled ABG pO2 at Pt Temp Cancelled ABG HCO3 Cancelled ABG O2 Sat (Measured) Cancelled ABG O2 Content Cancelled ABG Base Excess Cancelled Atul Test Cancelled O2 Delivery Device Cancelled Oxygen Flow Rate Cancelled Vent Mode Cancelled Vent Rate Cancelled Mechanical Rate Cancelled PEEP Cancelled Pressure Support Vent Cancelled Sodium Potassium Chloride Carbon Dioxide Anion Gap BUN Creatinine Est GFR (CKD-EPI)AfAm Est GFR (CKD-EPI)NonAf POC Glucometer 249 Random Glucose Calcium Phosphorus Magnesium 12/24/18 12/24/18 12/24/18 05:50 05:50 05:53 WBC RBC Hgb Hct MCV MCH MCHC RDW Plt Count MPV Anticoagulation Therapy Puncture Site Patient Temperature ABG pH ABG pCO2 at Pt Temp ABG pO2 at Pt Temp ABG HCO3 ABG O2 Sat (Measured) ABG O2 Content ABG Base Excess Atul Test O2 Delivery Device Oxygen Flow Rate Vent Mode Vent Rate Mechanical Rate PEEP Pressure Support Vent Sodium 138 Potassium 4.4 Chloride 110 H Carbon Dioxide 24 Anion Gap 4 L BUN 11.8 Creatinine 0.6 Est GFR (CKD-EPI)AfAm 124.05 Est GFR (CKD-EPI)NonAf 107.03 POC Glucometer 276 Random Glucose 281 H Calcium 8.4 L Phosphorus 1.8 L Magnesium 2.3 12/24/18 12/24/18 12/24/18 11:01 17:28 17:30 WBC RBC Hgb Hct MCV MCH MCHC RDW Plt Count MPV Anticoagulation Therapy Puncture Site Patient Temperature ABG pH ABG pCO2 at Pt Temp ABG pO2 at Pt Temp ABG HCO3 ABG O2 Sat (Measured) ABG O2 Content ABG Base Excess Atul Test O2 Delivery Device Oxygen Flow Rate Vent Mode Vent Rate Mechanical Rate PEEP Pressure Support Vent Sodium Potassium Chloride Carbon Dioxide Anion Gap BUN Creatinine Est GFR (CKD-EPI)AfAm Est GFR (CKD-EPI)NonAf POC Glucometer 165 506 508 Random Glucose Calcium Phosphorus Magnesium Active Medications Generic Name Dose Route Start Last Admin Trade Name Freq PRN Reason Stop Dose Admin Acetaminophen 650 mg 12/23/18 14:15 12/24/18 16:05 Tylenol - PO 650 mg Q4H PRN Administration pain scale 4-6 Aspirin 81 mg 12/23/18 10:00 12/24/18 09:32 Asa - PO 81 mg DAILY [facility] Administration Atorvastatin Calcium 40 mg 12/22/18 22:00 12/23/18 21:09 Lipitor - PO 40 mg HS [facility] Administration Calcium Carbonate/Cholecalciferol 1 tab 12/24/18 17:15 12/24/18 17:32 Os-Conor 500+D - PO 1 tab DAILY [facility] Administration Chlorhexidine Gluconate 1 applic 12/22/18 22:00 12/23/18 21:11 Hibiclens For Decolonization - TP 1 applic HS [facility] Administration Gabapentin 300 mg 12/23/18 22:00 12/24/18 09:32 Neurontin - PO 300 mg BID [facility] Administration Potassium Chloride/Sodium Chloride 20 meq in 1,000 mls @ 100 mls/hr 12/22/18 15:54 12/24/18 16:04 Ns+20 Meq Kcl - IV Not Given ASDIR [facility] Insulin Aspart 1 vial 12/24/18 17:36 Novolog Vial Sliding Scale - SQ ACHS [facility] Protocol Insulin Detemir 10 units 12/24/18 22:00 Levemir Vial SQ BID@0700,2200 [facility] Metoclopramide HCl 10 mg 12/22/18 15:54 12/23/18 14:53 Reglan Injection - IVPUSH 10 mg Q6H PRN Administration NAUSEA AND/OR VOMITING Mupirocin 1 applic 12/22/18 22:00 12/24/18 09:34 Bactroban Ointment (For Decolonization) - NS 12/27/18 09:59 1 applic BID [facility] Administration Ondansetron HCl 4 mg 12/22/18 15:54 12/24/18 09:53 Zofran Injection IVPUSH 4 mg Q6H PRN Administration NAUSEA AND/OR VOMITING Pantoprazole Sodium 40 mg 12/23/18 10:00 12/24/18 09:32 Protonix Iv IVPUSH 40 mg DAILY [facility] Administration Prednisone 40 mg 12/23/18 16:00 12/24/18 09:32 Deltasone - PO 40 mg DAILY [facility] Administration Quetiapine Fumarate 25 mg 12/24/18 10:00 12/24/18 09:32 Seroquel - PO 25 mg DAILY [facility] Administration Rivaroxaban 15 mg 12/23/18 22:00 12/24/18 09:33 Xarelto PO 15 mg BID [facility] Administration Tramadol HCl 50 mg 12/23/18 10:59 12/24/18 14:01 Ultram - PO 50 mg Q6H PRN Administration PAIN LEVEL 6-10 ASSESSMENT/PLAN: As per GI for Crohn's: Continue Prednisone 40mg once daily for now. 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 prior to discharge as prednisone will need to be tapered Advance diet to chopped diabetic 48yo F with h/o CVA (L sided hemiparesis), T1DM?, multiple admissions for DKA, HTN, HLD, and recent hospitalization at [facility] in September 2018 for SBO who presents to [place] with complaint of 3 days worth of nausea, NB/NB vomiting, diarrhea, and abdominal pain and admitted for evaluation and management of diabetic ketoacidosis Neurologic no active issues Cardiovascular no active issues BP 137/87 Pulmonary saturating well, no acute complaints Gastrointestinal no further abdominal pain or nausea has not had diarrhea while here treated with vanc/zosyn/flagyl for probably colitis, which is resolving - DC abx Endocrine admitted for DKA, now resolved with closed gap and normal bicarb was hypoglycemic overnight, given D50 and glucose improved will decrease levemir to 8U in the morning and continue sliding scale coverage to determine dose requirements diabetic diet lactic acidosis resolved Prophylaxis heparin 5000 subq TID Disposition -DC to med surg Visit type - Emergency Visit Emergency Visit: No - New Patient This patient is new to me today: No - Critical Care Critical Care patient: Yes Total Critical Care Time (in minutes): 38 Critical Care Statement: The care of this patient involved high complexity decision making to prevent further life threatening deterioration of the patient 's condition and/or to evaluate & treat vital organ system(s) failure or risk of failure.
[2018-12-24] MEDS: ATORVASTATIN CA 40 MG TABLET (FP) PO SCH (21:09)
[2018-12-24] MEDS: INSULIN (LEVEMIR) 100 UNITS/ML UNITS SQ SCH (21:10)
[2018-12-24] MEDS: CHLORHEXIDINE GLUCONATE 4% CLEANSER FOR DECOLONIZATION TP SCH (21:18)
[2018-12-25] MEDS: METOCLOPRAMIDE HCL INJECTION 10 MG/2 ML VIAL IVPUSH PRN (02:03)
[2018-12-25 05:58] LABS: BASO % 0.3 % (0-2.0); EOS % 0.7 % (0-4.5); HEMATOCRIT 23.6 % (32.4-45.2); HEMOGLOBIN 7.9 GM/dL (10.7-15.3); LYMPH % 39.1 % (8-40); MCH 28.2 pg (25.7-33.7); MCHC 33.4 g/dl (32.0-36.0); MEAN CELL VOLUME 84.5 fl (80-96); MEAN PLT VOLUME 7.5 fl (7.5-11.1); MONO % 5.9 % (3.8-10.2); PLATELET COUNT 250 K/MM3 (134-434); RDW 17.5 % (11.6-15.6); WHITE BLOOD COUNT 8.8 K/mm3 (4.0-10.0)
[2018-12-25] MEDS: INSULIN (LEVEMIR) 100 UNITS/ML UNITS SQ SCH (06:10)
[2018-12-25] MEDS: INSULIN SLIDING SCALE (NOVOLOG) 1 VIAL SQ SCH ×2 (06:10→11:04)
[2018-12-25 06:42] LABS: ALBUMIN 2.3 g/dl (3.4-5.0); ALK PHOS 76 U/L (45-117); ANION GAP 4 MMOL/L (8-16); BILIRUBIN,TOTAL < 0.1 mg/dL (0.2-1); BLOOD UREA NITROGEN 11.2 mg/dL (7-18); CALCIUM 8.4 mg/dL (8.5-10.1); CHLORIDE 108 mmol/L (98-107); CO2 31 mmol/L (21-32); CREATININE 0.6 mg/dL (0.55-1.3); GLUCOSE,RANDOM 83 mg/dL (74-106); MAGNESIUM 2.2 mg/dL (1.8-2.4); PHOSPHOROUS 2.6 mg/dL (2.5-4.9); POTASSIUM 3.4 mmol/L (3.5-5.1); SGOT/AST 5 U/L (15-37); SGPT/ALT 10 U/L (13-61); SODIUM 143 mmol/L (136-145); TOT PROT 4.8 g/dl (6.4-8.2)
--- NOTE | 2018-12-25 07:09 | PN ---
Physical Exam: SUBJECTIVE: Patient seen and examined at bedside. Overnight continued to request Dilaudid only for her pain, was not given. Pt resting comfortably on exam. OBJECTIVE: Vital Signs Period Temp Pulse Resp BP Sys/Rapp Pulse Ox Last 24 Hr 97.9 F-98.6 F 60-88 13-22 99-143/59-92 98 GENERAL: The patient is awake, alert, and fully oriented, in no acute distress. HEAD: Normal with no signs of trauma. EYES: PERRL, extraocular movements intact, sclera anicteric, conjunctiva clear. No ptosis. ENT: Ears normal, nares patent, oropharynx clear without exudates, moist mucous membranes. NECK: Trachea midline, full range of motion, supple. LUNGS: Breath sounds equal, clear to auscultation bilaterally, no wheezes, no crackles, no accessory muscle use. HEART: Regular rate and rhythm, S1, S2 without murmur, rub or gallop. ABDOMEN: Soft, nondistended, normoactive bowel sounds, no guarding, no rebound, no hepatosplenomegaly, no masses. Admits to diffuse pain EXTREMITIES: 2+ pulses, warm, well-perfused, no edema. NEUROLOGICAL: Cranial nerves II through XII grossly intact. Normal speech, gait not observed. PSYCH: Normal mood, normal affect. SKIN: Warm, dry, normal turgor, no rashes or lesions noted Laboratory Results - last 24 hr 12/24/18 12/24/18 12/24/18 05:50 11:01 17:28 WBC 10.7 H RBC 2.99 L Hgb 8.4 L Hct 25.4 L MCV 85.0 MCH 28.2 MCHC 33.2 RDW 17.8 H Plt Count 248 MPV 7.3 L Absolute Neuts (auto) Neutrophils % Lymphocytes % Monocytes % Eosinophils % Basophils % Nucleated RBC % Sodium Potassium Chloride Carbon Dioxide Anion Gap BUN Creatinine Est GFR (CKD-EPI)AfAm Est GFR (CKD-EPI)NonAf POC Glucometer 165 506 Random Glucose Calcium Phosphorus Magnesium Total Bilirubin AST ALT Alkaline Phosphatase Total Protein Albumin 12/24/18 12/24/18 12/25/18 17:30 20:55 05:09 WBC RBC Hgb Hct MCV MCH MCHC RDW Plt Count MPV Absolute Neuts (auto) Neutrophils % Lymphocytes % Monocytes % Eosinophils % Basophils % Nucleated RBC % Sodium Potassium Chloride Carbon Dioxide Anion Gap BUN Creatinine Est GFR (CKD-EPI)AfAm Est GFR (CKD-EPI)NonAf POC Glucometer 508 188 91 Random Glucose Calcium Phosphorus Magnesium Total Bilirubin AST ALT Alkaline Phosphatase Total Protein Albumin 12/25/18 12/25/18 05:20 05:20 WBC 8.8 RBC 2.80 L Hgb 7.9 L Hct 23.6 L MCV 84.5 MCH 28.2 MCHC 33.4 RDW 17.5 H Plt Count 250 MPV 7.5 Absolute Neuts (auto) 4.8 Neutrophils % 54.0 D Lymphocytes % 39.1 D Monocytes % 5.9 D Eosinophils % 0.7 D Basophils % 0.3 D Nucleated RBC % 0 Sodium 143 Potassium 3.4 L Chloride 108 H Carbon Dioxide 31 Anion Gap 4 L BUN 11.2 Creatinine 0.6 Est GFR (CKD-EPI)AfAm 124.05 Est GFR (CKD-EPI)NonAf 107.03 POC Glucometer Random Glucose 83 Calcium 8.4 L Phosphorus 2.6 Magnesium 2.2 Total Bilirubin < 0.1 L AST 5 L ALT 10 L Alkaline Phosphatase 76 Total Protein 4.8 L Albumin 2.3 L Active Medications Generic Name Dose Route Start Last Admin Trade Name Freq PRN Reason Stop Dose Admin Acetaminophen 650 mg 12/23/18 14:15 12/24/18 16:05 Tylenol - PO 650 mg Q4H PRN Administration pain scale 4-6 Aspirin 81 mg 12/23/18 10:00 12/24/18 09:32 Asa - PO 81 mg DAILY [facility] Administration Atorvastatin Calcium 40 mg 12/22/18 22:00 12/24/18 21:09 Lipitor - PO 40 mg HS [facility] Administration Calcium Carbonate/Cholecalciferol 1 tab 12/24/18 17:15 12/24/18 17:32 Os-Conor 500+D - PO 1 tab DAILY [facility] Administration Chlorhexidine Gluconate 1 applic 12/22/18 22:00 12/24/18 21:18 Hibiclens For Decolonization - TP 1 applic HS [facility] Administration Gabapentin 300 mg 12/23/18 22:00 12/24/18 21:09 Neurontin - PO 300 mg BID [facility] Administration Potassium Chloride/Sodium Chloride 20 meq in 1,000 mls @ 100 mls/hr 12/22/18 15:54 12/24/18 16:04 Ns+20 Meq Kcl - IV Not Given ASDIR [facility] Insulin Aspart 1 vial 12/24/18 17:36 12/25/18 06:10 Novolog Vial Sliding Scale - SQ Not Given [facility] Protocol Insulin Detemir 10 units 12/24/18 22:00 12/25/18 06:10 Levemir Vial SQ 10 units BID@0700,2200 [facility] Administration Metoclopramide HCl 10 mg 12/22/18 15:54 12/25/18 02:03 Reglan Injection - IVPUSH 10 mg Q6H PRN Administration NAUSEA AND/OR VOMITING Mupirocin 1 applic 12/22/18 22:00 12/24/18 21:19 Bactroban Ointment (For Decolonization) - NS 12/27/18 09:59 1 applic BID [facility] Administration Ondansetron HCl 4 mg 12/22/18 15:54 12/24/18 09:53 Zofran Injection IVPUSH 4 mg Q6H PRN Administration NAUSEA AND/OR VOMITING Pantoprazole Sodium 40 mg 12/23/18 10:00 12/24/18 09:32 Protonix Iv IVPUSH 40 mg DAILY [facility] Administration Prednisone 40 mg 12/23/18 16:00 12/24/18 09:32 Deltasone - PO 40 mg DAILY [facility] Administration Quetiapine Fumarate 25 mg 12/24/18 10:00 12/24/18 09:32 Seroquel - PO 25 mg DAILY [facility] Administration Rivaroxaban 15 mg 12/23/18 22:00 12/24/18 21:10 Xarelto PO 15 mg BID [facility] Administration Tramadol HCl 50 mg 12/23/18 10:59 12/24/18 21:49 Ultram - PO 50 mg Q6H PRN Administration PAIN LEVEL 6-10 ASSESSMENT/PLAN: 48yo F with h/o CVA (L sided hemiparesis), T1DM?, multiple admissions for DKA, HTN, HLD, and recent hospitalization at [facility] in September 2018 for SBO who presents to [facility] with complaint of 3 days worth of nausea, NB/NB vomiting, diarrhea, and abdominal pain and admitted for evaluation and management of diabetic ketoacidosis Neurologic no active issues Cardiovascular no active issues Pulmonary saturating well, no acute complaints Hx of recent DVT and PE, on Xarelto Gastrointestinal no further abdominal pain or nausea has not had diarrhea while here treated with vanc/zosyn/flagyl for probably colitis, which is resolved - DC abx Endocrine admitted for DKA, now resolved with closed gap, normal pH and normal bicarb diabetic diet lactic acidosis resolved Prophylaxis heparin 5000 subq TID Disposition -DC to med surg
--- NOTE | 2018-12-25 07:41 | PN ---
Progress Note, Physician - Current Medication List Current Medications: Active Medications Acetaminophen (Tylenol -) 650 mg PO Q4H PRN PRN Reason: pain scale 4-6 Last Admin: 12/24/18 16:05 Dose: 650 mg Aspirin (Asa -) 81 mg PO DAILY [facility] Last Admin: 12/24/18 09:32 Dose: 81 mg Atorvastatin Calcium (Lipitor -) 40 mg PO HS [facility] Last Admin: 12/24/18 21:09 Dose: 40 mg Calcium Carbonate/Cholecalciferol (Os-Conor 500+D -) 1 tab PO DAILY [facility] Last Admin: 12/24/18 17:32 Dose: 1 tab Chlorhexidine Gluconate (Hibiclens For Decolonization -) 1 applic TP HS [facility] Last Admin: 12/24/18 21:18 Dose: 1 applic Gabapentin (Neurontin -) 300 mg PO BID [facility] Last Admin: 12/24/18 21:09 Dose: 300 mg Potassium Chloride/Sodium Chloride (Ns+20 Meq Kcl -) 20 meq in 1,000 mls @ 100 mls/hr IV ASDIR [facility] Last Admin: 12/24/18 16:04 Dose: Not Given Insulin Aspart (Novolog Vial Sliding Scale -) 1 vial SQ ACHS [facility]; Protocol Last Admin: 12/25/18 06:10 Dose: Not Given Insulin Detemir (Levemir Vial) 10 units SQ BID@0700,2200 [facility] Last Admin: 12/25/18 06:10 Dose: 10 units Metoclopramide HCl (Reglan Injection -) 10 mg IVPUSH Q6H PRN PRN Reason: NAUSEA AND/OR VOMITING Last Admin: 12/25/18 02:03 Dose: 10 mg Mupirocin (Bactroban Ointment (For Decolonization) -) 1 applic NS BID [facility] Stop: 12/27/18 09:59 Last Admin: 12/24/18 21:19 Dose: 1 applic Ondansetron HCl (Zofran Injection) 4 mg IVPUSH Q6H PRN PRN Reason: NAUSEA AND/OR VOMITING Last Admin: 12/24/18 09:53 Dose: 4 mg Pantoprazole Sodium (Protonix Iv) 40 mg IVPUSH DAILY [facility] Last Admin: 12/24/18 09:32 Dose: 40 mg Prednisone (Deltasone -) 40 mg PO DAILY [facility] Last Admin: 12/24/18 09:32 Dose: 40 mg Quetiapine Fumarate (Seroquel -) 25 mg PO DAILY [facility] Last Admin: 12/24/18 09:32 Dose: 25 mg Rivaroxaban (Xarelto) 15 mg PO BID [facility] Last Admin: 12/24/18 21:10 Dose: 15 mg Tramadol HCl (Ultram -) 50 mg PO Q6H PRN PRN Reason: PAIN LEVEL 6-10 Last Admin: 12/24/18 21:49 Dose: 50 mg - Objective Vital Signs: Vital Signs Temperature 98.2 F 12/25/18 02:00 Pulse Rate 67 12/25/18 06:00 Respiratory Rate 15 12/25/18 06:00 Blood Pressure 143/67 12/25/18 06:00 O2 Sat by Pulse Oximetry (%) 98 12/24/18 09:00 Labs: CBC, BMP 12/25/18 05:20 12/25/18 05:20 Problem List - Problems (1) DKA (diabetic ketoacidoses) Code(s): E13.10 - OTH DIABETES MELLITUS WITH KETOACIDOSIS WITHOUT COMA Qualifiers: Diabetes mellitus type: type 1 Diabetes mellitus complication detail: without coma Qualified Code(s): E10.10 - Type 1 diabetes mellitus with ketoacidosis without coma (2) Abdominal pain Code(s): R10.9 - UNSPECIFIED ABDOMINAL PAIN (3) C. difficile diarrhea Code(s): A04.72 - ENTEROCOLITIS D/T CLOSTRIDIUM DIFFICILE, NOT SPCF RECUR (4) Clavicle fracture Code(s): S42.009A - FRACTURE OF UNSP PART OF UNSP CLAVICLE, INIT FOR CLOS FX Qualifiers: Encounter type: initial encounter Clavicle location: lateral end Fracture type: closed Fracture alignment: displaced Laterality: left Qualified Code(s): S42.032A - Displaced fracture of lateral end of left clavicle , initial encounter for closed fracture (5) Prophylactic measure Code(s): Z29.9 - ENCOUNTER FOR PROPHYLACTIC MEASURES, UNSPECIFIED (6) Leukocytosis Code(s): D72.829 - ELEVATED WHITE BLOOD CELL COUNT, UNSPECIFIED (7) Hypercholesteremia Code(s): E78.00 - PURE HYPERCHOLESTEROLEMIA, UNSPECIFIED (8) Falls frequently Code(s): R29.6 - REPEATED FALLS
[2018-12-25] MEDS ORDERED: POTASSIUM CHLORIDE TABS 20 MEQ TABLET.ER (FP) PO ONE (07:42)
[2018-12-25] MEDS ORDERED: PT OWN MED DRAWER 7, Y5N ONE (09:05)
--- NOTE | 2018-12-25 09:12 | CONSULT ---
Consult Consult Specialty:: Endocrinology Referred by:: Dusty Rae Reason for Consultation:: Hyperglycemia - History of Present Illness Chief Complaint: DKA History of Present Illness: This is a 48 year old female with history of HTN, CVA (left sided hemiparesis), HLD, T1DM, multiple admissions for DKA secondary to nonadherence to medications dysphagia, gastroparesis, esophageal stricture (EGD 02/14), c/diff ( 10/2018), SBO September 2018 (s/p SB resection @ [facility] [place] as per pt report) presented to [place] ED on the afternoon of 12/21 with complaints of N/V/D/abd pain x 3 days. Associated symptoms included malaise, dizziness, fever (temp 103 on 12/20) , chills, anorexia, urinary frequency and dysuria. Due to the severity of her symptoms pt sustained a mechanical fall, on 12/21, while at home. In the ED pt was found to be in DKA and was treated with IV insulin and IV hydration with resolution of acidosis. Pt referred for management of hyperglycemia. Pt says her blood sugar has been higher since she was started on Prednisone. - History Source History Provided By: Patient, Medical Record - Past Medical History [employer]LECT[employer]: Yes: CVA, Migraine Cardio/Vascular: Yes: Hyperlipdemia Gastrointestinal: Yes: Crohn's Disease (per the patient. ? small bowel crohn's) , Other (Gastroparesis, esophageal stricture) ...LMP: 04/14/13 ...: No Musculoskeletal: Yes: Chronic low back pain Endocrine: Yes: Diabetes Mellitus (DM II) Additional Medical History: dka in the past - Past Surgical History Past Surgical History: Yes: Cholecystectomy (Laparoscopic) - Alcohol/Substance Use Hx Alcohol Use: No History of Substance Use: reports: None - Smoking History Smoking history: Current every day smoker Have you smoked in the past 12 months: Yes Aproximately how many cigarettes per day: 10 - Social History ADL: Independent Occupation: Unemployed History of Recent Travel: No Home Medications - Allergies Allergies/Adverse Reactions: Allergies Allergy/AdvReac Type Severity Reaction Status Date / Time No Known Allergies Allergy Verified 12/21/18 17:43 - Home Medications Home Medications: Ambulatory Orders Insulin Detemir [Levemir Flextouch] 25 unit SQ DAILY #3 insuln.pen 06/20/18 Aspirin 81 mg PO DAILY #30 tab.chew 08/13/18 Atorvastatin Ca [Lipitor] 40 mg PO HS #30 tablet 08/13/18 Gabapentin 300 mg PO BID 12/23/18 Quetiapine Fumarate [Seroquel -] 25 mg PO DAILY 12/23/18 Rivaroxaban [Xarelto] 15 mg PO BID 12/23/18 Calcium 500Mg/Vit-D 200 Units [Os-Conor 500+D -] 1 tab PO DAILY tab 12/25/18 Insulin (Levemir) [Levemir Vial] 10 units SQ BID@0700,2200 #600 units 12/25/18 Insulin Sliding Scale [Novolog Vial Sliding Scale -] 1 vial SQ ACHS #600 units 12/25/18 Loperamide HCl [Imodium -] 2 mg PO Q8H PRN #30 capsule 12/25/18 Rivaroxaban [Xarelto] 15 mg PO BID #60 tablet 12/25/18 predniSONE [Deltasone -] 40 mg PO DAILY #30 tablet 12/25/18 traMADol HCL [Ultram -] 100 mg PO Q8H PRN #90 tablet MDD 6 12/25/18 Family Disease History - Family Disease History Family Disease History: Heart Disease: Father (cad), Other: Mother (Alive (70) well) Review of Systems - Review of Systems Constitutional: reports: No Symptoms Eyes: reports: No Symptoms HENT: reports: No Symptoms Neck: reports: No Symptoms Cardiovascular: reports: No Symptoms Respiratory: reports: No Symptoms Gastrointestinal: reports: Abdominal Pain Genitourinary: reports: No Symptoms Musculoskeletal: reports: No Symptoms Neurological: reports: No Symptoms Endocrine: reports: No Symptoms Hematology/Lymphatic: reports: No Symptoms Psychiatric: reports: No Symptoms Physical Exam Vital Signs: Vital Signs Temperature 98.2 F 12/25/18 02:00 Pulse Rate 78 12/25/18 08:31 Respiratory Rate 17 12/25/18 08:31 Blood Pressure 128/75 12/25/18 08:31 O2 Sat by Pulse Oximetry (%) 98 12/24/18 09:00 Constitutional: Yes: No Distress, Calm Eyes: Yes: Conjunctiva Clear, EOM Intact HENT: Yes: Atraumatic, Normocephalic Neck: Yes: Supple, Trachea Midline Cardiovascular: Yes: Regular Rate and Rhythm Respiratory: Yes: Regular, CTA Bilaterally Gastrointestinal: Yes: Normal Bowel Sounds, Soft, Other (+surgical scar) Extremities: Yes: WNL Edema: No Neurological: Yes: Alert, Oriented Labs: CBC, BMP 12/25/18 05:20 12/25/18 05:20 Assessment/Plan AP: Diabetic Ketoacidosis Resolved T1DM Lactic Acidosis resolved Acute Kidney Injury improving Hyperlipidemia h/o PE Crohn's on prednisone Diet exercise discussed Discussed need for compliance with Insulin to prevent further episodes of DKA. Explained that DKA can be prevented by taking Levemir or similar long acting Insulin as prescribed at least once every 24 hrs. To come to ED if unable to eat to prevent hypoglycemia because she needs Insulin to prevent development of DKA even when she is unable to eat. Pt verbalizes understanding Continue Levemir 10 BID NOvolog SS coverage TID with meals IV hyration and electrolyte replacement as necessary. Will F/U
[2018-12-25] MEDS ORDERED: ACETAMINOPHEN 1000 MG/100 ML VIAL (NON FORMULARY) IVPB PRN (09:34)
[2018-12-25] MEDS ORDERED: traMADol HCL 50 MG TABLET PO PRN (09:36)
[2018-12-25] MEDS: GABAPENTIN 300 MG CAPSULE (FP) PO SCH (09:44)
[2018-12-25] MEDS: QUEtiapine FUMARATE 25 MG TABLET (FP) PO SCH (09:45)
[2018-12-25] MEDS: CALCIUM 500MG/VIT-D 200 UNITS COMBO TABLET (FP) PO SCH (09:45)
[2018-12-25] MEDS: PANTOPRAZOLE SODIUM 40 MG VIAL IVPUSH SCH (09:46)
[2018-12-25] MEDS: RIVAROXABAN 15 MG TABLET PO SCH (09:46)
[2018-12-25] MEDS: predniSONE 20 MG TABLET (UD) PO SCH (09:46)
[2018-12-25] MEDS: ASPIRIN 81 MG CHEWABLE TABLETS PO SCH (09:46)
[2018-12-25] MEDS: MUPIROCIN 2% TOPICAL OINTMENT FOR DECOLONIZATION NS SCH (09:47)
[2018-12-25] MEDS ORDERED: HYDROmorphone HCl 2 MG/ML VIAL IVPUSH ONE (10:00)
--- NOTE | 2018-12-25 10:20 | PN ---
Progress Note, Physician - Current Medication List Current Medications: Active Medications Acetaminophen (Tylenol -) 650 mg PO Q4H PRN PRN Reason: pain scale 4-6 Last Admin: 12/24/18 16:05 Dose: 650 mg Acetaminophen (Ofirmev Injection -) 1,000 mg IVPB Q6H PRN PRN Reason: PAIN LEVEL 1 - 3 Last Admin: 12/25/18 09:43 Dose: 1,000 mg Aspirin (Asa -) 81 mg PO DAILY [facility] Last Admin: 12/25/18 09:46 Dose: 81 mg Atorvastatin Calcium (Lipitor -) 40 mg PO HS [facility] Last Admin: 12/24/18 21:09 Dose: 40 mg Calcium Carbonate/Cholecalciferol (Os-Conor 500+D -) 1 tab PO DAILY [facility] Last Admin: 12/25/18 09:45 Dose: 1 tab Chlorhexidine Gluconate (Hibiclens For Decolonization -) 1 applic TP HS [facility] Last Admin: 12/24/18 21:18 Dose: 1 applic Gabapentin (Neurontin -) 300 mg PO BID [facility] Last Admin: 12/25/18 09:44 Dose: 300 mg Potassium Chloride/Sodium Chloride (Ns+20 Meq Kcl -) 20 meq in 1,000 mls @ 100 mls/hr IV ASDIR [facility] Last Admin: 12/24/18 16:04 Dose: Not Given Insulin Aspart (Novolog Vial Sliding Scale -) 1 vial SQ ACHS [facility]; Protocol Last Admin: 12/25/18 06:10 Dose: Not Given Insulin Detemir (Levemir Vial) 10 units SQ BID@0700,2200 [facility] Last Admin: 12/25/18 06:10 Dose: 10 units Metoclopramide HCl (Reglan Injection -) 10 mg IVPUSH Q6H PRN PRN Reason: NAUSEA AND/OR VOMITING Last Admin: 12/25/18 02:03 Dose: 10 mg Mupirocin (Bactroban Ointment (For Decolonization) -) 1 applic NS BID [facility] Stop: 12/27/18 09:59 Last Admin: 12/25/18 09:47 Dose: 1 applic Ondansetron HCl (Zofran Injection) 4 mg IVPUSH Q6H PRN PRN Reason: NAUSEA AND/OR VOMITING Last Admin: 12/24/18 09:53 Dose: 4 mg Pantoprazole Sodium (Protonix Iv) 40 mg IVPUSH DAILY [facility] Last Admin: 12/25/18 09:46 Dose: 40 mg Prednisone (Deltasone -) 40 mg PO DAILY [facility] Last Admin: 12/25/18 09:46 Dose: 40 mg Quetiapine Fumarate (Seroquel -) 25 mg PO DAILY [facility] Last Admin: 12/25/18 09:45 Dose: 25 mg Rivaroxaban (Xarelto) 15 mg PO BID [facility] Last Admin: 12/25/18 09:46 Dose: 15 mg Tramadol HCl (Ultram -) 100 mg PO Q8H PRN PRN Reason: PAIN LEVEL 6-10 Last Admin: 12/25/18 09:45 Dose: 100 mg - Objective Vital Signs: Vital Signs Temperature 98.2 F 12/25/18 02:00 Pulse Rate 78 12/25/18 08:31 Respiratory Rate 17 12/25/18 08:31 Blood Pressure 128/75 12/25/18 08:31 O2 Sat by Pulse Oximetry (%) 98 12/24/18 09:00 Labs: CBC, BMP 12/25/18 05:20 12/25/18 05:20
--- NOTE | 2018-12-25 11:26 | PN ---
Progress Note (short form) - Note Progress Note: Spoke with ENA Morales of the GI group at [facility]: She looked up information: She was discharged from [facility] 12/08 on prednisone and was to follow-up with GI Dr. Chadwick to discuss Remicade treatment. She had a follow-up appointment 01/15, however, this was cancelled and was never rescheduled. Follow-up should be assured prior to discharge [phone] (GI office number). Problem List - Problems (1) Vomiting Code(s): R11.10 - VOMITING, UNSPECIFIED Qualifiers: Vomiting type: unspecified Vomiting Intractability: non-intractable Nausea presence: with nausea Qualified Code(s): R11.2 - Nausea with vomiting, unspecified (2) Diarrhea Code(s): R19.7 - DIARRHEA, UNSPECIFIED (3) Crohn's disease Code(s): K50.90 - CROHN'S DISEASE, UNSPECIFIED, WITHOUT COMPLICATIONS
--- NOTE | 2018-12-25 11:49 | PN ---
Teaching Attending Note Name of Resident: Chencho Andrews ATTENDING PHYSICIAN STATEMENT I saw and evaluated the patient. I reviewed the resident's note and discussed the case with the resident. I agree with the resident's findings and plan as documented. SUBJECTIVE: Patient seen and examined in the ICU. Feels better today but still with significant abdominal discomfort and diarrhea. No CP or SOB. OBJECTIVE: Intake & Output 12/22/18 12/23/18 12/24/18 12/25/18 23:59 23:59 23:59 23:59 Intake Total 4230 2450 2940 1200 Output Total 2880 1700 2900 1600 Balance 1350 750 40 -400 Weight 126 lb 6.4 oz 126 lb 126 lb Last Vital Signs Temp Pulse Resp BP Pulse Ox 98.2 F 78 17 128/75 98 12/25/18 02:00 12/25/18 08:31 12/25/18 08:31 12/25/18 08:31 12/24/18 09:00 Active Medications Acetaminophen (Tylenol -) 650 mg PO Q4H PRN PRN Reason: pain scale 4-6 Last Admin: 12/24/18 16:05 Dose: 650 mg Acetaminophen (Ofirmev Injection -) 1,000 mg IVPB Q6H PRN PRN Reason: PAIN LEVEL 1 - 3 Last Admin: 12/25/18 09:43 Dose: 1,000 mg Aspirin (Asa -) 81 mg PO DAILY [facility] Last Admin: 12/25/18 09:46 Dose: 81 mg Atorvastatin Calcium (Lipitor -) 40 mg PO HS [facility] Last Admin: 12/24/18 21:09 Dose: 40 mg Calcium Carbonate/Cholecalciferol (Os-Conor 500+D -) 1 tab PO DAILY [facility] Last Admin: 12/25/18 09:45 Dose: 1 tab Chlorhexidine Gluconate (Hibiclens For Decolonization -) 1 applic TP HS [facility] Last Admin: 12/24/18 21:18 Dose: 1 applic Gabapentin (Neurontin -) 300 mg PO BID [facility] Last Admin: 12/25/18 09:44 Dose: 300 mg Potassium Chloride/Sodium Chloride (Ns+20 Meq Kcl -) 20 meq in 1,000 mls @ 100 mls/hr IV ASDIR [facility] Last Admin: 12/24/18 16:04 Dose: Not Given Insulin Aspart (Novolog Vial Sliding Scale -) 1 vial SQ ACHS [facility]; Protocol Last Admin: 12/25/18 11:04 Dose: Not Given Insulin Detemir (Levemir Vial) 10 units SQ BID@0700,2200 [facility] Last Admin: 12/25/18 06:10 Dose: 10 units Metoclopramide HCl (Reglan Injection -) 10 mg IVPUSH Q6H PRN PRN Reason: NAUSEA AND/OR VOMITING Last Admin: 12/25/18 02:03 Dose: 10 mg Mupirocin (Bactroban Ointment (For Decolonization) -) 1 applic NS BID [facility] Stop: 12/27/18 09:59 Last Admin: 12/25/18 09:47 Dose: 1 applic Ondansetron HCl (Zofran Injection) 4 mg IVPUSH Q6H PRN PRN Reason: NAUSEA AND/OR VOMITING Last Admin: 12/24/18 09:53 Dose: 4 mg Pantoprazole Sodium (Protonix Iv) 40 mg IVPUSH DAILY [facility] Last Admin: 12/25/18 09:46 Dose: 40 mg Prednisone (Deltasone -) 40 mg PO DAILY [facility] Last Admin: 12/25/18 09:46 Dose: 40 mg Quetiapine Fumarate (Seroquel -) 25 mg PO DAILY [facility] Last Admin: 12/25/18 09:45 Dose: 25 mg Rivaroxaban (Xarelto) 15 mg PO BID [facility] Last Admin: 12/25/18 09:46 Dose: 15 mg Tramadol HCl (Ultram -) 100 mg PO Q8H PRN PRN Reason: PAIN LEVEL 6-10 Last Admin: 12/25/18 09:45 Dose: 100 mg Gen: NAD at rest Heart: RRR Lung: decreased breath sounds at the bases Abd: soft, (+) tenderness Ext: no edema Laboratory Results - last 24 hr 12/24/18 12/24/18 12/24/18 17:28 17:30 20:55 WBC RBC Hgb Hct MCV MCH MCHC RDW Plt Count MPV Absolute Neuts (auto) Neutrophils % Lymphocytes % Monocytes % Eosinophils % Basophils % Nucleated RBC % Sodium Potassium Chloride Carbon Dioxide Anion Gap BUN Creatinine Est GFR (CKD-EPI)AfAm Est GFR (CKD-EPI)NonAf POC Glucometer 506 508 188 Random Glucose Calcium Phosphorus Magnesium Total Bilirubin AST ALT Alkaline Phosphatase Total Protein Albumin 12/25/18 12/25/1819 05:09 05:20 05:20 WBC 8.8 RBC 2.80 L Hgb 7.9 L Hct 23.6 L MCV 84.5 MCH 28.2 MCHC 33.4 RDW 17.5 H Plt Count 250 MPV 7.5 Absolute Neuts (auto) 4.8 Neutrophils % 54.0 D Lymphocytes % 39.1 D Monocytes % 5.9 D Eosinophils % 0.7 D Basophils % 0.3 D Nucleated RBC % 0 Sodium 143 Potassium 3.4 L Chloride 108 H Carbon Dioxide 31 Anion Gap 4 L BUN 11.2 Creatinine 0.6 Est GFR (CKD-EPI)AfAm 124.05 Est GFR (CKD-EPI)NonAf 107.03 POC Glucometer 91 Random Glucose 83 Calcium 8.4 L Phosphorus 2.6 Magnesium 2.2 Total Bilirubin < 0.1 L AST 5 L ALT 10 L Alkaline Phosphatase 76 Total Protein 4.8 L Albumin 2.3 L 12/25/18 11:03 WBC RBC Hgb Hct MCV MCH MCHC RDW Plt Count MPV Absolute Neuts (auto) Neutrophils % Lymphocytes % Monocytes % Eosinophils % Basophils % Nucleated RBC % Sodium Potassium Chloride Carbon Dioxide Anion Gap BUN Creatinine Est GFR (CKD-EPI)AfAm Est GFR (CKD-EPI)NonAf POC Glucometer 106 Random Glucose Calcium Phosphorus Magnesium Total Bilirubin AST ALT Alkaline Phosphatase Total Protein Albumin ASSESSMENT AND PLAN: Diabetic Ketoacidosis resolving Lactic Acidosis resolved Acute Kidney Injury improving Hyperlipidemia h/o PE Crohn's on prednisone h/o Noncompliance - glucose control - monitor BGM, BMP - IVF - PO as tolerated - pain control - continue anticoagulation - DVT prophylaxis - can monitor on floor Dr Otero
[2018-12-25] MEDS ORDERED: LOPERAMIDE HCL 2 MG CAPSULE PO PRN (12:53)
--- NOTE | 2018-12-25 15:46 | DS ---
Physical Examination Vital Signs: Vital Signs Temperature 97.9 F 12/25/18 12:00 Pulse Rate 86 12/25/18 14:00 Respiratory Rate 17 12/25/18 14:00 Blood Pressure 124/77 12/25/18 12:00 O2 Sat by Pulse Oximetry (%) 98 12/24/18 09:00 Constitutional: Yes: No Distress, Calm, Thin Eyes: Yes: WNL, Conjunctiva Clear, EOM Intact HENT: Yes: WNL, Atraumatic, Normocephalic Neck: Yes: WNL, Supple, Trachea Midline Cardiovascular: Yes: WNL, Regular Rate and Rhythm Respiratory: Yes: WNL, Regular, CTA Bilaterally Gastrointestinal: Yes: WNL, Normal Bowel Sounds, Soft ...Rectal Exam: Yes: Deferred Renal/: Yes: WNL Breast(s): Yes: WNL Musculoskeletal: Yes: WNL Extremities: Yes: WNL Edema: No Peripheral Pulses WNL: Yes Integumentary: Yes: WNL Neurological: Yes: WNL, Alert, Oriented ...Motor Strength: WNL Psychiatric: Yes: WNL, Alert, Oriented Labs: CBC, BMP 12/25/18 05:20 12/25/18 05:20 Discharge Summary Reason For Visit: DKA Current Active Problems Crohn's disease (Acute) DKA (diabetic ketoacidoses) (Acute) Diarrhea (Acute) Falls frequently (Acute) H/O Clostridium difficile infection (Acute) Hypercholesteremia (Acute) Hyperglycemia (Acute) Nausea & vomiting (Acute) Diabetes mellitus, insulin dependent (IDDM), uncontrolled (Chronic) Hospital Course: Chief Complaint: abdominal pain, high blood sugars History of Present Illness: 48 year old female with past medical history of HTN, CVA (left sided hemiparesis ), HLD, IDDM, DKA resulting in multiple admissions, dysphagia, gastroparesis, esophageal stricture (EGD 02/14), c/diff (10/2018), SBO September 2018 (s/p SB resection @ [facility] as per pt report) presented to [place] ED on the afternoon of 12/21 with complaints of N/V/D/abd pain x 3 days. Associated symptoms include malaise, dizziness, fever (temp 103 on 12/20), chills, anorexia, urinary frequency and dysuria. Due to the severity of her symptoms pt sustained a mechanical fall, today 12/21, while at home. She landed on her left upper extremity and now reports pain and decreased ROM in affected extremity. Pt's clara decided to transport her via car to ED for evaluation due to worsening mental status. Upon arrival, BG level 439mg/dl, nausea/vomiting treated with Zofran, and morphine administered for Left arm pain. - Current Medication List Current Medications: Active Medications Acetaminophen (Tylenol -) 650 mg PO Q4H PRN PRN Reason: pain scale 4-6 Aspirin (Asa -) 81 mg PO DAILY [facility] Last Admin: 12/23/18 09:30 Dose: 81 mg Atorvastatin Calcium (Lipitor -) 40 mg PO [facility] Last Admin: 12/23/18 21:09 Dose: 40 mg Chlorhexidine Gluconate (Hibiclens For Decolonization -) 1 applic TP HS [facility] Last Admin: 12/23/18 21:11 Dose: 1 applic Gabapentin (Neurontin -) 300 mg PO BID [facility] Last Admin: 12/23/18 21:09 Dose: 300 mg Potassium Chloride/Sodium Chloride (Ns+20 Meq Kcl -) 20 meq in 1,000 mls @ 100 mls/hr IV ASDIR [facility] Last Admin: 12/23/18 16:33 Dose: 100 mls/hr Insulin Aspart (Novolog Vial Sliding Scale -) 1 vial SQ ACHS [facility]; Protocol Last Admin: 12/24/18 06:03 Dose: 6 units Insulin Aspart (Novolog Vial) 5 units SQ TIDAC [facility] Last Admin: 12/24/18 06:03 Dose: 5 units Insulin Detemir (Levemir Vial) 8 units SQ [facility] Last Admin: 12/23/18 21:08 Dose: 8 units Metoclopramide HCl (Reglan Injection -) 10 mg IVPUSH Q6H PRN PRN Reason: NAUSEA AND/OR VOMITING Last Admin: 12/23/18 14:53 Dose: 10 mg Mupirocin (Bactroban Ointment (For Decolonization) -) 1 applic NS BID [facility] Stop: 12/27/18 09:59 Last Admin: 12/23/18 21:12 Dose: 1 applic Ondansetron HCl (Zofran Injection) 4 mg IVPUSH Q6H PRN PRN Reason: NAUSEA AND/OR VOMITING Last Admin: 12/23/18 09:30 Dose: 4 mg Pantoprazole Sodium (Protonix Iv) 40 mg IVPUSH DAILY [facility] Last Admin: 12/23/18 09:30 Dose: 40 mg Prednisone (Deltasone -) 40 mg PO DAILY [facility] Last Admin: 12/23/18 16:30 Dose: 40 mg Quetiapine Fumarate (Seroquel -) 25 mg PO DAILY [facility] Rivaroxaban (Xarelto) 15 mg PO BID [facility] Last Admin: 12/23/18 21:10 Dose: Not Given Tramadol HCl (Ultram -) 50 mg PO Q6H PRN PRN Reason: PAIN LEVEL 6-10 Last Admin: 12/24/18 06:02 Dose: 50 mg - Objective Vital Signs: Vital Signs Temperature 97 F L 12/24/18 06:00 Pulse Rate 62 12/24/18 06:00 Respiratory Rate 16 12/24/18 06:00 Blood Pressure 120/67 12/24/18 06:00 O2 Sat by Pulse Oximetry (%) 100 12/23/18 19:46 Constitutional: Yes: Calm, Mild Distress, Thin Eyes: Yes: WNL, Conjunctiva Clear, EOM Intact HENT: Yes: WNL, Atraumatic, Normocephalic Neck: Yes: WNL, Supple, Trachea Midline Cardiovascular: Yes: WNL, Regular Rate and Rhythm Respiratory: Yes: WNL, Regular, Diminished (at bases) Gastrointestinal: Yes: WNL, Normal Bowel Sounds, Tenderness (diffuse) ...Rectal Exam: Yes: Deferred Genitourinary: Yes: WNL Musculoskeletal: Yes: Joint Swelling (lft shoulder/arm), Muscle Pain Edema: No Peripheral Pulses WNL: Yes Integumentary: Yes: WNL Neurological: Yes: WNL, Alert, Oriented ...Motor Strength: WNL Psychiatric: Yes: WNL, Alert, Oriented Labs: CBC, BMP 12/24/18 05:50 12/24/18 05:50 - ....Imaging Cat Scan: Report Reviewed (ABD CT: increased density of liver, ? thickenng in rectum vs. underdistention, resolution of previously noted colitis in the proximal colon,small bowel anastamosis,? thickening of small bowel.)) Problem List - Problems (1) DKA (diabetic ketoacidoses) Assessment/Plan: BGM >400 on admission started on regular insulin gtt in ICU and titrated to off BGM AC/qHS with novolog sliding scale coverage addition of levemir 10u BID and BG have been controlled -consult placed for endocrinology here -spoke with diabetic nurse from [employer] pump-multiple attempts to teach patient on home use and both patient and nurse did not feel that the patient was safe to use pump (Contact rep Dea Young [phone]) (2) Abdominal pain Assessment/Plan: Resolved Seen by Dr Kilpatrick's consult greatly appreciated- Dr Mark called office to speak with Dr. Ortiz at [facility] [phone]. We will continue on Prednisone 40mg once daily and at some point Dr Staton will start on remecaid Appointment was beatrize on 01/13/19 at 11am (3) C. difficile diarrhea Assessment/Plan: cdif negative and diarrhea sunsided (4) Clavicle fracture Assessment/Plan: clavicle fracture seen on CXR s/p multiple falls in past apply sling to left arm tramadol prn for pain (5) Prophylactic measure Assessment/Plan: FEN tolerating regular diabeteic diet DVT proph continue xarelto at home for recent PE PPI to continue at home (6) Leukocytosis resolved (7) Hypercholesteremia Assessment/Plan: continue atorvastatin at home Condition: Improved - Instructions Diet, Activity, Other Instructions: Ni, Please check your blood sugars before every meal and at bedtime. You are going to give yourself NOVOLOG insulin coverage according to this scale Novolog Insulin Sliding Scale Check Blood sugar BEFORE all meals and BEFORE bed If BS is: <60 drink some juice and recheck in an hour 100-150 no insulin 151-200 6u of insulin 201-250 8u of insulin 251-300 10u of insulin 301-350 12u of insulin 351-400 14u of insulin >401 call doctor Diabetic diet You are also going to give yourself LEVEMIR insulin every morning and night Morning dose before breakfast 10u Bed time dose 10u Make an appointment to see Dr Nielsen and she can coordinate when you can meet John Young the DIabetic Nurse/[employer] rep for further training on the insulin pump I made an appointment with Dr Rina MARROQUIN doctor at [facility] for January 13 at 11am Continue the presdnisone and know what this may increase your sugars more so please make sure you are checking them and taking the insulin. INFORMATION on types of insulin/diabetic teaching Levemir (Insulin Detemir) Levemir is a long-acting (basal) insulin analog manufactured by [employer]. Its generic name is insulin detemir. Levemir is designed to provide 24- hour blood sugar control and to lower the A1C in those with type 1 and type 2 diabetes. Insulin detemir is created by recombinant DNA technology and is produced by [employer]. It also contains zinc, mannitol, hydrochloric acid or sodium hydroxide to adjust its pH level, and other chemicals. Levemir was first approved by the FDA in November of 2004. It then received two more approvals in 2012: for use by women and in children 2 to 5 years old with type 1 diabetes. How Does Levemir Work? Levemir starts to work on bringing down your blood sugar levels a few hours after injection. Peak concentration occurs in about six to eight hours after injection. Levemir is designed to keep working for around 24 hours (and to stay at close to peak levels for that amount of time), but some people clear the medication out of their bodies more quickly. As a long-acting insulin, Levemir can be injected either once or twice daily. How quickly your body processes and clears Levemir will determine how often you will need to inject this insulin. When you first start Levemir, youll need to test your blood sugars frequently and work with your doctor to determine your ideal dosage and injection frequency. Some people have even reported on diabetes forums that its necessary to split their Levemir dose into three or four injections a day, in order to get the best blood glucose control. How Should Levemir Be Used? Levemir is administered by injection, with the use of a prefilled pen device called a FlexTouch. This device has been designed to require less force to push the injection button, resulting in less discomfort. Unlike other insulin pens, the FlexTouch can remain unrefrigerated (once opened) for up to 42 days in temperatures 86 degrees Fahrenheit or cooler. Levemir is also available in vials and can be injected using syringes. Once opened, vials must be kept below 86 degrees Fahrenheit for up to 42 days. If your doctor has prescribed a once-daily dose of Levemir, then make your evening meal or your bedtime your regular injection time. If youre on a twice-daily injection regimen, give yourself at least twelve hours between doses. Levemir should not be used in an insulin pump, mixed with other insulins, or injected into a vein or muscle. What Are the Side Effects of Levemir? Hypoglycemia is a common side effect of all types of insulin. Know the signs and how to treat a low blood sugar episode. Also be sure your family, friends, and caretakers understand how to recognize and treat hypoglycemia, in case you are unable to do so yourself. Other common side effects of Levemir include: Itching or a mild skin rash Thickening or hollowing of the skin at your injection site. Always rotate injection sites to prevent tissue damage. Low blood potassium levels Increased heart rate Tiredness Headache Confusion Hunger Nausea Muscle weakness Blurry vision Insulin and Diabetes Types of Insulin For people who need to take external or supplemental insulin (insulin your body did not produce but that was instead made by a pharmaceutical [employer]), there are several different types and kinds of insulin. The insulin you take will depend on your personal needs. Different types of insulin work differently in different people. Heres a chart of how the types of insulin work to replicate the normal pancreatic delivery of insulin and how they are typically used. Rapid-acting insulin analogs (Insulin Aspart, Insulin Lispro, Insulin Glulisine): Usually taken as a bolus before a meal to cover the blood glucose elevation from eating or to correct for high blood glucose. This type of insulin is often used with longer-acting insulin, which is used to cover the bodys metabolic need for insulin. Short-acting synthetic human insulin (Regular): Usually taken as a bolus about 30 minutes before a meal to cover the blood glucose elevation from eating or to correct for high blood glucose. Short-acting insulin is different different from Rapid-acting in its Onset and Peak. This type of insulin is often used with longer-acting insulin, which is used to cover the bodys metabolic need for insulin. Intermediate-acting synthetic human insulin (NPH): Usually taken twice a day as a combination bolus and basal insulin. This type of insulin is often combined with Rapid-acting or Short-acting insulin to cover meals before and/or after its Peak. Long-acting insulin analogs (Insulin Glargine, Insulin Detemir): Usually taken once or twice a day as a basal insulin to cover the bodys metabolic need for insulin. This type of insulin is often combined, when needed, with Rapid- acting or Short-acting insulin as a bolus before meals or to correct for high blood glucose. Bolus Insulin Bolus insulin, or a bolus refers to insulin that is fast acting and is given to cover the carbohydrates in a meal or to bring down high blood glucose. Bolus insulin include Humalog, Novolog and Apidra. Basal Insulin Basal insulin refers to insulin that is long acting and used to to keep blood sugar stable in between meal and correction boluses and at night. The body needs some insulin even when no food is being consumed to fuel your brain and essential organs. As a result, a longer acting insulin is typically combined with a fast acting in order to manage blood sugars throughout all hours of the day and night. Basal insulin include Lantus, Levemir, Tresiba and Toujeo. Inhalable Insulin There is currently one type of inhalable insulin on the market called Afrezza. Inhalable insulin is a man-made insulin with is inhaled through the nostrils by way of a nebulizer device (like asthma medications). The [facility] says it is considered a mealtime insulin and is to be taken at the start of a meal. Buying and Storing Insulin In the [place], Regular and NPH insulin types are available without a prescription (as are syringes). All other types of insulin require a prescription for purchase and can be bought at most any pharmacy. Many insurance plans offer a 3 month mail order service you can purchase a 3 month supply of insulin with. This may amount to a time and financial savings of insulin purchases. Unopened insulin needs to be stored in the refrigerator. Once opened, Regular and NPH insulin last approximately two weeks outside of refrigeration (check drug insert for specifics) and the other insulin types last approximately one month outside of refrigeration. In that time, insulin must not get too hot or cold. The [employer] [employer] has tips on storing insulin: Do not store your insulin near extreme heat or extreme cold. Never store insulin in the freezer, direct sunlight, or in the glove compartment of a car. Check the expiration date before using, and dont use any insulin beyond its expiration date. Examine the bottle closely to make sure the insulin looks normal before you draw the insulin into the syringe. Using Insulin In people without diabetes, the body makes and releases insulin in an efficient way with exact doses. In people with diabetes who require the use of external insulin, a person must either administer their own insulin with a syringe, pen, pod, or pump. When carbohydrates are consumed, those carbohydrates are digested and broken down into glucose (sugar) in the blood. Insulin enables that glucose to: enter a cell in the body and be used instantly for energy be converted into glycogen and stored in the muscles or liver be stored as body fat because the body doesnt need it instantly for energy, and the glycogen storages are full Without enough insulin present in the body, you will experience high blood sugars, also known as hyperglycemia. For a person who has not yet been diagnosed with diabetes, a high blood sugar is the number one sign and can be measured easily at the doctors office with a simple blood test. A high blood sugar is considered anything above 130 mg/dL or 7.2 mmol/L. For a person to be diagnosed with diabetes, the duration and timing of high blood sugars are important factors for diagnosis rather than just one random finger stick reading. Too much insulin in the body can lead to low blood sugars, also known as hypoglycemia. Low blood sugars are any measurement on your glucose meter below 70 mg/dL or 3.9 mmol/L, and it should be treated quickly with a form of easy-to- digest carbohydrate like juice or glucose tabs. Disposition: VNS/HOME HEALTH CARE - Home Medications Comprehensive Discharge Medication List: Ambulatory Orders Insulin Detemir [Levemir Flextouch] 25 unit SQ DAILY #3 insuln.pen 06/20/18 Aspirin 81 mg PO DAILY #30 tab.chew 08/13/18 Aspirin [ASA -] 81 mg PO DAILY tab.chew 08/13/18 Atorvastatin Ca [Lipitor] 40 mg PO HS #30 tablet 08/13/18 Gabapentin 300 mg PO BID 12/23/18 Quetiapine Fumarate [Seroquel -] 25 mg PO DAILY 12/23/18 Rivaroxaban [Xarelto] 15 mg PO BID 12/23/18 This patient is new to me today: No Emergency Visit: Yes ED Registration Date: 12/21/18 Care time: The patient presented to the Emergency Department on the above date and was hospitalized for further evaluation of their emergent condition. Critical Care patient: No - Discharge Referral Referred to [facility] Med P.C.: No
[2018-12-25 15:50] VITALS: BP 127/67; PULSE 88; TEMP 98
[2018-12-25] MEDS ORDERED: INSULIN SLIDING SCALE (NOVOLOG) 1 VIAL SQ SCH (16:30)
[2018-12-25] MEDS: SODIUM CHLORIDE 0.9%/KCL 20 MEQ/1,000 ML INFUS.BAG IV SCH (16:31)
== END 2018-12-25 16:00 | disposition home or self-care (01) | DRG 637 ==
LOC: FER 17:41 → JICU 21:00
PROVIDERS: ADMIT Internal Medicine; ATTEND Nurse Practitioner Acute Care
PROC: 05HM33Z Insertion of Infusion Device into Right Internal Jugular Vein, Percutaneous Approach (ICD-10-PCS; principal; 2018-12-22)
PROC: B543ZZA Ultrasonography of Right Jugular Veins, Guidance (ICD-10-PCS; 2018-12-22)
DX: E10.10 Type 1 diabetes mellitus with ketoacidosis without coma (principal); I26.99 Other pulmonary embolism without acute cor pulmonale; E87.2 Acidosis; I69.354 Hemiplegia and hemiparesis following cerebral infarction affecting left non-dominant side; K50.90 Crohn's disease, unspecified, without complications; N17.9 Acute kidney failure, unspecified; D64.9 Anemia, unspecified; R13.10 Dysphagia, unspecified; E78.00 Pure hypercholesterolemia, unspecified; E10.65 Type 1 diabetes mellitus with hyperglycemia; E10.43 Type 1 diabetes mellitus with diabetic autonomic (poly)neuropathy; K31.84 Gastroparesis; R63.0 Anorexia; Z68.20 Body mass index [BMI] 20.0-20.9, adult; D72.829 Elevated white blood cell count, unspecified; G43.809 Other migraine, not intractable, without status migrainosus; M54.5 Low back pain; R11.2 Nausea with vomiting, unspecified; E86.1 Hypovolemia; I10 Essential (primary) hypertension; R10.9 Unspecified abdominal pain; R29.6 Repeated falls; Z86.73 Personal history of transient ischemic attack (TIA), and cerebral infarction without residual deficits; Z79.4 Long term (current) use of insulin; Z91.19 Patient's noncompliance with other medical treatment and regimen
CPT/HCPCS: 36415; 71045-TC-FY; 74176-TC; 80048; 80053; 81003; 82009; 82150; 82550; 82803; 82962; 83605; 83690; 83735; 84100; 84484; 84703; 85025; 85027; 87040; 87086; 87186; 87324; 87449; 93005; 99285-25; J0131; J1644; J7030

== ENCOUNTER 2019-01-26 19:10 | Emergency (ER) | payer OTHER ==
[2019-01-26 19:16] VITALS: TEMP 97.9; BMI 21.4
[2019-01-26] MEDS ORDERED: ONDANSETRON 4 MG/2 ML VIAL IVPB ONE (19:26)
[2019-01-26] MEDS ORDERED: SODIUM CHLORIDE 1,000 ML IV ONE ×2 (19:26→20:53)
[2019-01-26] MEDS ORDERED: ONDANSETRON 4 MG/2 ML VIAL ONE (19:27)
[2019-01-26] MEDS ORDERED: HYDROmorphone HCL CARPU-JECT 1 MG/1 ML DISP.SYRIN IVPUSH ONE (19:48)
[2019-01-26] MEDS ORDERED: HYDROmorphone HCL CARPU-JECT 1 MG/1 ML DISP.SYRIN ONE (19:49)
[2019-01-26] MEDS ORDERED: METOCLOPRAMIDE HCL INJECTION 10 MG/2 ML VIAL ONE (19:49)
[2019-01-26] MEDS ORDERED: METOCLOPRAMIDE HCL INJECTION 10 MG/2 ML VIAL IVPUSH ONE (19:49)
[2019-01-26 20:10] LABS: HEMATOCRIT 32.3 % (32.4-45.2); HEMOGLOBIN 10.7 GM/dl (10.7-15.3); MCH 27.1 pg (25.7-33.7); MCHC 33.2 g/dl (32.0-36.0); MEAN CELL VOLUME 81.5 fl (80-96); MEAN PLT VOLUME 8.3 fl (7.5-11.1); PLATELET COUNT 193 K/MM3 (134-434); RBC 3.96 M/mm3 (3.60-5.2); RDW 17.7 % (11.6-15.6); WHITE BLOOD COUNT 20.6 K/mm3 (4.0-10.8)
[2019-01-26 20:21] LABS: ALBUMIN 3.6 g/dl (3.4-5.0); BILIRUBIN,TOTAL 1.8 mg/dl (0.2-1); CALCIUM 8.9 mg/dl (8.5-10); CREATININE 1.4 mg/dl (0.55-1.3); POTASSIUM 4.2 mmol/L (3.5-5.1); TOT PROT 6.8 g/dl (6.4-8.2)
[2019-01-26] MEDS ORDERED: INSULIN REGULAR HUMAN 100 UNITS/ML *VIAL ONE ×2 (20:34→20:37)
[2019-01-26] MEDS ORDERED: INSULIN REGULAR 100 UNITS in SODIUM CHLORIDE 99 ML IVPB SCH (20:45)
[2019-01-26 20:52] LABS: ANISOCYTOSIS 1+; PLATELET ESTIMATE ADEQUATE
--- NOTE | 2019-01-26 21:06 | PDOC ---
Documentation entered by Pamela Best SCRIBE, acting as scribe for Margo Manzo MD. Margo Manzo MD: This documentation has been prepared by the Estephania dubois Brenda, SCRIBE, under my direction and personally reviewed by me in its entirety. I confirm that the documentation accurately reflects all work , treatment, procedures, and medical decision making performed by me. History of Present Illness - General Chief Complaint: Nausea/Vomiting Stated Complaint: vomiting Time Seen by Provider: 01/26/19 19:13 History Source: Patient Exam Limitations: No Limitations - History of Present Illness Initial Comments: 01/26/19 20:02 The patient is a 48 year old female, with a significant PMH of IDDM with frequent admittance for DKA, CVA, crohn's disease and anemia, who presents to the emergency department with 2 days of stabbing abdominal pain, accompanied by diarrhea and vomiting, productive of brick red sputum. She also notes no PO intake for the past 2 days, with an inability to keep anything down, including liquids. As per friend, on the bedside, her blood sugar was at 140 when checked at home. The patient denies chest pain, shortness of breath, headache and dizziness. Denies fever, chills and constipation. Denies dysuria, frequency, urgency and hematuria. Denies any other symptoms. PAST MEDICAL HISTORY: IDDM with frequent admittance for DKA, CVA, crohn's disease and anemia. PAST SURGICAL HISTORY: Cholecystectomy (at age 19), left shoulder cyst removal. FAMILY HISTORY: no pertinent history SOCIAL HISTORY: Currently smokes 1 pack per day. MEDICATIONS: reviewed ALLERGIES: As per nursing notes General: No fevers or chills, no weakness, no weight loss HEENT: No change in vision. No sore throat,. No ear pain CardioVascular: No chest pain or shortness of breath Respiratory:No cough, or wheezing. Gastrointestinal: (+)Vomiting. (+) Diarrhea (+)Abdominal pain. No constipation, No rectal bleeding Genitourinary: No dysuria, hematuria, or frequency Musculoskeletal: No joint or muscle pain or swelling Neurologic: No headache, vertigo, dizziness or loss of consciousness Psychiatric: nor depression Skin: No rashes or easy bruising Endocrine: no increased thirst or abnormal weight change Allergic: no skin or latex allergy All other systems reviewed and normal General: (+) Moderate distress with intermittent vomiting. Well-nourished well- developed individual. HEENT: (+) Dry mucous membranes. Throat: Normal, tonsils normal, no erythema or exudate Neck: Supple, no meningeal signs, no lymphadenopathy Eyes::Pupils equal reactive and round, extraocular motion intact Chest: Nontender to palpation Cardiac:(+) tachycardic. S1-S2 normal, no murmurs rubs or gallops Respiratory: Lungs clear to auscultation bilateral Abdomen: (+) decreased bowel sounds. (+) Diffuse tenderness on palpation. Soft , nondistended. Extremities: Warm, dry, no cyanosis, clubbing, or edema Skin: No rashes Neuro: Alert and oriented x3, nonfocal exam, grossly intact, normal gait Psych: Normal mood and affect 01/26/19 21:04 Assessment and plan: This is a 48-year-old female who is a type I diabetic 15 years. Patient comes in frequently approximately once to twice a month with DKA secondary to noncompliance of her medication. Patient comes in with nausea vomiting and dehydration. IV line was placed blood was sent patient started on an insulin drip as her glucose was over 400. Patient will be transferred to [facility] for a critical care bed as we do not have any critical care beds here. Patient was accepted to [facility] Dr. Isbell from the critical care unit however patient will be sent to the emergency department initially. Past History - Past Medical History Allergies/Adverse Reactions: Allergies Allergy/AdvReac Type Severity Reaction Status Date / Time No Known Allergies Allergy Verified 01/26/19 19:12 Home Medications: Ambulatory Orders Aspirin 81 mg PO DAILY #30 tab.chew 08/13/18 Atorvastatin Ca [Lipitor] 40 mg PO HS #30 tablet 08/13/18 Gabapentin 300 mg PO BID 12/23/18 Quetiapine Fumarate [Seroquel -] 25 mg PO BID 12/23/18 Insulin Sliding Scale [Novolog Vial Sliding Scale -] 1 vial SQ ACHS #600 units 12/25/18 Rivaroxaban [Xarelto] 15 mg PO BID #60 tablet 12/25/18 predniSONE [Deltasone -] 40 mg PO DAILY #30 tablet 12/25/18 traMADol HCL [Ultram -] 100 mg PO Q8H PRN #90 tablet MDD 6 12/25/18 Insulin Detemir [Levemir Flextouch] 0 unit SQ DAILY 01/26/19 Anemia: No Asthma: No Cancer: No Cardiac Disorders: No CVA: Yes (JUL 2017) COPD: No CHF: No Dementia: No Diabetes: Yes (IDDM) GI Disorders: Yes (DYSPHAGIA) Disorders: No HTN: No Hypercholesterolemia: Yes Liver Disease: No Seizures: No Thyroid Disease: No - Surgical History Abdominal Surgery: Yes Appendectomy: No Cardiac Surgery: No Cholecystectomy: Yes (AGE 19) Lung Surgery: No Neurologic Surgery: No Orthopedic Surgery: Yes (L shoulder cyst removed) - Immunization History Td Vaccination: Yes Immunization Up to Date: Yes - Suicide/Smoking/Psychosocial Hx Smoking Status: Yes Smoking History: Current every day smoker Years of Tobacco Use: 15 Have you smoked in the past 12 months: Yes Number of Cigarettes Smoked Daily: 20 Information on smoking cessation initiated: Yes 'Breaking Loose' booklet given: 08/03/18 Hx Alcohol Use: No Drug/Substance Use Hx: Yes (marijuana) Substance Use Type: Marijuana Hx Substance Use Treatment: No Abd/GI Specific PMHX - Complaint Specific PMHX GERD: Yes *Physical Exam - Vital Signs Last Vital Signs Temp Pulse Resp BP Pulse Ox 97.9 F 124 H 20 157/81 100 01/26/19 19:11 01/26/19 19:11 01/26/19 19:11 01/26/19 19:11 01/26/19 19:11 ED Treatment Course - LABORATORY CBC & Chemistry Diagram: 01/26/19 19:50 01/26/19 19:50 - ADDITIONAL ORDERS Additional order review: Laboratory Results 01/26/19 01/26/19 19:50 19:21 Sodium 140 Potassium 4.2 Chloride 108 H Carbon Dioxide 12 L Anion Gap 20 H BUN 19.0 H Creatinine 1.4 H Est GFR (CKD-EPI)AfAm 51.01 Est GFR (CKD-EPI)NonAf 44.01 POC Glucometer 512 Random Glucose 429 H* Calcium 8.9 Total Bilirubin 1.8 H AST 21 ALT 16 Alkaline Phosphatase 106 Total Protein 6.8 Albumin 3.6 01/26/19 01/26/19 19:50 19:21 RBC 3.96 MCV 81.5 MCHC 33.2 RDW 17.7 H MPV 8.3 Neutrophils % No Result Required. Lymphocytes % No Result Required. POC Glucometer 512 - Medications Given in the ED: ED Medications Discontinued Medications Generic Name Dose Route Start Last Admin Trade Name Donavan PRN Reason Stop Dose Admin Hydromorphone HCl 1 mg 01/26/19 19:48 01/26/19 19:55 Dilaudid Injection - IVPUSH 01/26/19 19:49 1 mg ONCE ONE Administration Sodium Chloride 1,000 mls @ 1,000 mls/hr 01/26/19 19:26 01/26/19 19:42 Normal Saline - IV 01/26/19 20:25 1,000 mls/hr .Q1H ONE Administration Metoclopramide HCl 10 mg 01/26/19 19:49 01/26/19 19:55 Reglan Injection - IVPUSH 01/26/19 19:50 10 mg ONCE ONE Administration Ondansetron HCl 8 mg 01/26/19 19:26 01/26/19 19:42 Zofran Injection IVPB 01/26/19 19:27 8 mg ONCE ONE Administration Medical Decision Making - Critical Care Time Total Critical Care Time (minutes): 45 Critical Care Statement: The care of this patient involved high complexity decision making to prevent further life threatening deterioration of the patient 's condition and/or to evaluate & treat vital organ system(s) failure or risk of failure. *DC/Admit/Observation/Transfer Diagnosis at time of Disposition: Diabetes mellitus, insulin dependent (IDDM), uncontrolled, Vomiting, Ketoacidosis in type I diabetes mellitus - Discharge Dispostion Disposition: TRANSFER ACUTE CARE/OTHER HOSP Condition at time of disposition: Guarded - Referrals - Patient Instructions - Post Discharge Activity
[2019-01-26 21:51] VITALS: BP 127/66; PULSE 100
--- NOTE | 2019-01-27 11:49 | EKG ---
Test Reason : Blood Pressure : / mmHG Vent. Rate : 104 BPM Atrial Rate : 104 BPM P-R Int : 130 ms QRS Dur : 090 ms QT Int : 354 ms P-R-T Axes : 068 080 044 degrees QTc Int : 465 ms SINUS TACHYCARDIA POSSIBLE LEFT ATRIAL ENLARGEMENT inferiolateral st segment changer r/o ischemia BORDERLINE ECG WHEN COMPARED WITH ECG OF 21-DEC-2018 20:02, PREMATURE VENTRICULAR COMPLEXES ARE NO LONGER PRESENT NONSPECIFIC T WAVE ABNORMALITY NO LONGER EVIDENT IN LATERAL LEADS Confirmed by DEBORAH ALONSO, KAILASH ([id number]) on 01/27/2019 11:49:01 AM Referred By: DR MATA Confirmed By:KAILASH CABRERA MD
== END 2019-01-26 22:20 | disposition short-term general hospital (02) ==
LOC: FER 19:10
PROC: 3E033GC Introduction of Other Therapeutic Substance into Peripheral Vein, Percutaneous Approach (ICD-10-PCS; principal; 2019-01-26)
PROC: 3E0337Z Introduction of Electrolytic and Water Balance Substance into Peripheral Vein, Percutaneous Approach (ICD-10-PCS; 2019-01-26)
PROC: 3E013VG Introduction of Insulin into Subcutaneous Tissue, Percutaneous Approach (ICD-10-PCS; 2019-01-26)
PROC: 3E033NZ Introduction of Analgesics, Hypnotics, Sedatives into Peripheral Vein, Percutaneous Approach (ICD-10-PCS; 2019-01-26)
DX: E10.10 Type 1 diabetes mellitus with ketoacidosis without coma (principal); R11.10 Vomiting, unspecified; F17.210 Nicotine dependence, cigarettes, uncomplicated; E78.00 Pure hypercholesterolemia, unspecified; Z86.73 Personal history of transient ischemic attack (TIA), and cerebral infarction without residual deficits
CPT/HCPCS: 36415; 71045-TC-FY; 80053; 82009; 82962; 83605; 83690; 85025; 93005; 96361; 96365; 96375; 99283-25; J7030

== ENCOUNTER 2019-03-07 16:52 | Emergency (ER) | payer OTHER ==
[2019-03-07 17:14] VITALS: BP 143/89; PULSE 100; TEMP 98.3; BMI 21.3
--- NOTE | 2019-03-07 18:46 | PDOC ---
Documentation entered by Genevieve Baumann SCRIBE, acting as scribe for Alexandra Millan MD. Alexandra Millan MD: This documentation has been prepared by the scribe, Genevieve Baumann SCRIBE, under my direction and personally reviewed by me in its entirety. I confirm that the documentation accurately reflects all work, treatment, procedures, and medical decision making performed by me. History of Present Illness - General Chief Complaint: Wound Stated Complaint: WOUND CHECK History Source: Patient Exam Limitations: No Limitations - History of Present Illness Initial Comments: 03/07/19 17:31 The patient is a 48-year-old female, with a past medical history of HTN, CVA ( left sided hemiparesis), HLD, IDDM, DKA resulting in multiple admissions, dysphagia, gastroparesis, esophageal stricture (EGD 02/14), c/diff (10/2018), SBO September 2018 (s/p SB resection at [facility] as per pt report), who presents to the ED with a small draining wound to the groin. The patient was admitted to a [facility] last week for DKA and had an IV placed in her groin. It was removed on Friday03/03/19 and it was not draining at this time. She noted clear fluid coming from the site once she was discharged home on 03/05/19. She has been applying pads since then, which she has been soaking through. She denies any pain, tenderness, or swelling of the site. She denies any fevers or chills. Denies having any other symptoms. Allergies: NKA Past History - Past Medical History Allergies/Adverse Reactions: Allergies Allergy/AdvReac Type Severity Reaction Status Date / Time No Known Allergies Allergy Verified 01/26/19 19:12 Home Medications: Ambulatory Orders Aspirin 81 mg PO DAILY #30 tab.chew 08/13/18 Atorvastatin Ca [Lipitor] 40 mg PO HS #30 tablet 08/13/18 Gabapentin 300 mg PO BID 12/23/18 Quetiapine Fumarate [Seroquel -] 25 mg PO BID 12/23/18 Insulin Sliding Scale [Novolog Vial Sliding Scale -] 1 vial SQ ACHS #600 units 12/25/18 Rivaroxaban [Xarelto] 15 mg PO BID #60 tablet 12/25/18 predniSONE [Deltasone -] 40 mg PO DAILY #30 tablet 12/25/18 traMADol HCL [Ultram -] 100 mg PO Q8H PRN #90 tablet MDD 6 12/25/18 Insulin Detemir [Levemir Flextouch] 12 unit SQ BID 01/26/19 Amoxicillin/Potassium Clav [Augmentin 875-125 Tablet] 1 each PO BID 03/07/19 HYDROmorphone [Dilaudid -] 4 mg PO Q6H PRN 03/07/19 Anemia: No Asthma: No Cancer: No Cardiac Disorders: No CVA: Yes (JUL 2017) COPD: No CHF: No Dementia: No Diabetes: Yes (IDDM) GI Disorders: Yes (DYSPHAGIA) Disorders: No HTN: No Hypercholesterolemia: Yes Liver Disease: No Seizures: No Thyroid Disease: No - Surgical History Abdominal Surgery: Yes Appendectomy: No Cardiac Surgery: No Cholecystectomy: Yes (AGE 19) Lung Surgery: No Neurologic Surgery: No Orthopedic Surgery: Yes (L shoulder cyst removed) - Immunization History Td Vaccination: Yes Immunization Up to Date: Yes - Suicide/Smoking/Psychosocial Hx Smoking Status: Yes Smoking History: Current every day smoker Years of Tobacco Use: 15 Have you smoked in the past 12 months: Yes Number of Cigarettes Smoked Daily: 10 'Breaking Loose' booklet given: 08/03/18 Hx Alcohol Use: No Drug/Substance Use Hx: Yes (Narcotics) Substance Use Type: Marijuana Hx Substance Use Treatment: No Review of Systems - Review of Systems Able to Perform ROS?: Yes Comments:: 03/07/19 17:32 GENERAL/CONSTITUTIONAL: No fever or chills. No weakness. HEAD, EYES, EARS, NOSE AND THROAT: No change in vision. No ear pain or discharge. No sore throat. CARDIOVASCULAR: No chest pain or shortness of breath. RESPIRATORY: No cough, wheezing, or hemoptysis. GASTROINTESTINAL: No nausea, vomiting, diarrhea or constipation. GENITOURINARY: No dysuria, frequency, or change in urination. MUSCULOSKELETAL: No joint or muscle swelling or pain. No neck or back pain. SKIN: (+)Draining groin wound. NEUROLOGIC: No headache, vertigo, loss of consciousness, or change in strength/ sensation. ENDOCRINE: No increased thirst. No abnormal weight change. HEMATOLOGIC/LYMPHATIC: No anemia, easy bleeding, or history of blood clots. ALLERGIC/IMMUNOLOGIC: No hives or skin allergy. *Physical Exam - Vital Signs Last Vital Signs Temp Pulse Resp BP Pulse Ox 98.3 F 100 H 18 143/89 97 03/07/19 16:55 03/07/19 16:55 03/07/19 16:55 03/07/19 16:55 03/07/19 16:55 - Physical Exam Comments: 03/07/19 17:33 GENERAL: Awake, alert, and fully oriented, in no acute distress HEAD: No signs of trauma EYES: PERRLA, EOMI, sclera anicteric, conjunctiva clear ENT: Auricles normal inspection, hearing grossly normal, nares patent, oropharynx clear without exudates. Moist mucosa NECK: Normal ROM, supple, no lymphadenopathy, JVD, or masses LUNGS: Breath sounds equal, clear to auscultation bilaterally. No wheezes, and no crackles HEART: Regular rate and rhythm, normal S1 and S2, no murmurs, rubs or gallops ABDOMEN: Soft, nontender, normoactive bowel sounds. No guarding, no rebound. No masses EXTREMITIES: RLE: (+)Puncture wound at the femoral triangle with minimal sanguineous drainage. No erythema or tenderness. No swelling. Normal range of motion, no edema. No clubbing or cyanosis. No cords, erythema, or tenderness NEUROLOGICAL: Cranial nerves II through XII grossly intact. Normal speech. SKIN: Warm, Dry, normal turgor. ED Treatment Course - RADIOLOGY Radiology Studies Ordered: Category Date Time Status DUPLEX VASCUL US-1 LEG [US] Stat Ultrasound 03/07/19 17:17 Ordered SOFT TISSUE EXTREMITY US [US] Stat Ultrasound 03/07/19 17:29 Taken Medical Decision Making - Medical Decision Making 03/07/19 18:38 pt presents to the ED complaining of copious serosanguinous drainage from the site of a femoral line that was removed approximately one week ago. Denies fever, nausea or vomiting or pain at the site. Drainage began several days after the line was removed. Denies bloody drainage from the site. will check ultrasound to rule out seroma and likely discharge if negative. 03/07/19 18:45 *DC/Admit/Observation/Transfer - Discharge Dispostion Condition at time of disposition: Good - Referrals Referrals: Fader,Braden M, MD [Primary Care Provider] - - Patient Instructions - Post Discharge Activity
--- NOTE | 2019-03-07 20:05 | PDOC ---
*Physical Exam - Vital Signs Last Vital Signs Temp Pulse Resp BP Pulse Ox 98.3 F 100 H 18 143/89 97 03/07/19 16:55 03/07/19 16:55 03/07/19 16:55 03/07/19 16:55 03/07/19 16:55 Progress Note - Progress Note Progress Note: Care of this patient received from Dr. Millan. Patient has drainage from wound in the right groin where femoral line was removed several days prior to presentation. Drainage is serosanguineous with no evidence of purulent drainage or inflammation at puncture site. Ultrasound of right inguinal region was performed to evaluate for seroma/ abscess. Preliminary reading by Imaging franchise business consultant: No evidence of seroma or encapsulated fluid collection. Patient was discharged with plan to continue dry sterile dressings to the area. She should return to ER immediately if she notices any pus draining from the area, develops fever or has increase in redness/swelling/pain. She should otherwise follow up with her PMD, Dr. Chaudhary within the next 2-3 days. She also has a followup appointment with her cardiac surgeon (had open heart surgery in early January of this year) on Friday, March 10. *DC/Admit/Observation/Transfer Diagnosis at time of Disposition: Wound drainage - Discharge Dispostion Disposition: HOME Condition at time of disposition: Stable - Referrals Referrals: Braden Chaudhary MD [Primary Care Provider] - 2 Days - Patient Instructions Additional Instructions: continue dry, sterile dressing to wound as needed return to ER if you have pain, redness of wound,fever or see pus draining from wound Call Dr. Chaudhary's office tomorrow a.m. and arrange follow-up within the next 2-3 days Follow-up with your cardiac surgeon on Friday, 03/10 as scheduled - Post Discharge Activity
== END 2019-03-07 20:11 | disposition home or self-care (01) ==
LOC: FER 16:52
DX: T81.30XA Disruption of wound, unspecified, initial encounter (principal)
CPT/HCPCS: 76882-TC-RT-FY; 99282-25

== ENCOUNTER 2019-03-09 16:47 | Inpatient (IN) | payer OTHER ==
--- NOTE | 2019-03-09 16:49 | PDOC ---
History of Present Illness - General Chief Complaint: Pain, Acute Stated Complaint: ABD PAIN Time Seen by Provider: 03/09/19 16:49 History Source: Patient Exam Limitations: No Limitations - History of Present Illness Initial Comments: Pt is a 48 yo F, with PMH of HTN, CVA (L hemiparesis), HLD, IDDM (frequent DKA, gastroparesis), esophageal stricture (2017), SBO (09/2018), C diff, and "a clot in her heart," (open heart surgery, on xarelto), who is presenting with complaints of acute abdominal pain since 3pm today. Pt states this is associated with nausea, but no vomiting, and the pain is "all over my stomach," consistent with prior SBO and gastroparesis. She has been tolerating PO food and fluid intake. Pt states she had loose brown stool 2 days ago, and frequently has both constipation and loose stool, although not as much diarrhea lately as when she had c diff. Pt denies any recent fevers/chills, headache, vision changes, syncope, chest pain, palpitations, SOB, vomiting, urinary symptoms, or leg swelling. Allergies: NKDA PCP: Dr. Chaudhary Social: Pt denies any cigarette, alcohol, or drug use. Pt denies any recent travel or sick contacts. Surgical: as above Family: no relevant history. 03/09/19 18:31 03/09/19 18:43 Past History - Travel Traveled outside of the country in the last 30 days: No Close contact w/someone who was outside of country & ill: No - Past Medical History Allergies/Adverse Reactions: Allergies Allergy/AdvReac Type Severity Reaction Status Date / Time No Known Allergies Allergy Verified 03/09/19 16:48 Home Medications: Ambulatory Orders Aspirin 81 mg PO DAILY #30 tab.chew 08/13/18 Atorvastatin Ca [Lipitor] 40 mg PO HS #30 tablet 08/13/18 Gabapentin 300 mg PO BID 12/23/18 Quetiapine Fumarate [Seroquel -] 25 mg PO BID 12/23/18 Insulin Sliding Scale [Novolog Vial Sliding Scale -] 1 vial SQ ACHS #600 units 12/25/18 Rivaroxaban [Xarelto] 15 mg PO BID #60 tablet 12/25/18 predniSONE [Deltasone -] 40 mg PO DAILY #30 tablet 12/25/18 traMADol HCL [Ultram -] 100 mg PO Q8H PRN #90 tablet MDD 6 12/25/18 Insulin Detemir [Levemir Flextouch] 12 unit SQ BID 01/26/19 Amoxicillin/Potassium Clav [Augmentin 875-125 Tablet] 1 each PO BID 03/07/19 HYDROmorphone [Dilaudid -] 4 mg PO Q6H PRN 03/07/19 Anemia: No Asthma: No Cancer: No Cardiac Disorders: No CVA: Yes (JUL 2017) COPD: No CHF: No Dementia: No Diabetes: Yes (IDDM) GI Disorders: Yes (DYSPHAGIA) Disorders: No HTN: No Hypercholesterolemia: Yes Liver Disease: No Seizures: No Thyroid Disease: No - Surgical History Abdominal Surgery: Yes Appendectomy: No Cardiac Surgery: No Cholecystectomy: Yes (AGE 19) GI Surgery: Yes (SB RESECTION) Lung Surgery: No Neurologic Surgery: No Orthopedic Surgery: Yes (L shoulder cyst removed) - Immunization History Td Vaccination: Yes Immunization Up to Date: Yes - Suicide/Smoking/Psychosocial Hx Smoking Status: Yes Smoking History: Current every day smoker Years of Tobacco Use: 15 Have you smoked in the past 12 months: Yes Number of Cigarettes Smoked Daily: 10 'Breaking Loose' booklet given: 03/07/19 Hx Alcohol Use: No Drug/Substance Use Hx: Yes (Narcotics) Substance Use Type: Marijuana Hx Substance Use Treatment: No Review of Systems - Review of Systems Able to Perform ROS?: Yes Is the patient limited Cuban proficient: No Constitutional: Yes: Weight Stable. No: Chills, Diaphoresis, Fever, Loss of Appetite, Malaise, Weakness HEENTM: No: Recent change in vision, Nose Congestion, Throat Pain, Throat Swelling, Difficulty Swallowing Respiratory: No: Cough, Orthopnea, Shortness of Breath Cardiac (ROS): No: Chest Pain, Edema, Irregular Heart Rate, Lightheadedness, Palpitations, Syncope, Chest Tightness ABD/GI: Yes: Constipated, Diarrhea, Nausea, Vomiting. No: Abdominal Distended, Poor Appetite, Poor Fluid Intake : No: Burning, Dysuria, Frequency, Hematuria, Pain, Urgency Musculoskeletal: No: Back Pain, Joint Pain, Muscle Pain, Muscle Weakness Integumentary: No: Rash Neurological: No: Headache, Numbness, Weakness, Unsteady Gait, Dizziness Psychiatric: No: Sleep Pattern Change, Change in Appetite Endocrine: No: Increased Urine, Change in Weight Hematologic/Lymphatic: Yes: Blood Clots ("clot in her heart"). No: Anemia, Easy Bleeding, Easy Bruising All Other Systems: Reviewed and Negative *Physical Exam - Physical Exam Comments: Vitals stable, pt afebrile. Pt in NAD, ambulatory in the ED. Thin body habitus. Pt alert and oriented x3. reporting lead generally intact, muscular strength and sensation intact. No midline spinal tenderness, step-offs, or crepitus. Head normocephalic, atraumatic. Eyes PERRLA, EOMI. Oropharynx without erythema or exudates, no LAD b/l. No nasal congestion, hearing intact. Clear heart sounds, S1/S2, no JVD, b/l pedal edema, or heart murmur. Clear lung sounds, no respiratory distress, wheezes, crackles, or accessory muscle use. R-sided abdominal TTP (RUQ, R periumbilical, and RLQ). Abdomen soft, non- distended, and with normoactive bowel sounds. Skin with multiple healing wounds from IV punctures (recent hospitalizations). Bandage over recent R femoral line with clear drainage. No surrounding erythema or purulent drainage. Skin otherwise without jaundice or rash. 03/09/19 18:54 03/09/19 18:55 ED Treatment Course - LABORATORY CBC & Chemistry Diagram: 03/09/19 17:55 03/09/19 17:55 Medical Decision Making - Medical Decision Making Pt was seen at bedside, also will be seen by attending Dr. Jensen. Pt presenting with complaints of R-sided abdominal pain since earlier today. PT tolerating PO intake and had a BM 2 days ago, which is normal for the pt. Will assess with CT abd/pelvis with PO contrast and labs. Provided pts home dose of levemir and 4 mg SL zofran for improvement of nausea and glucose control. Will continue to reassess pt and monitor for symptomatic improvement. 03/09/19 18:57 PT signed out to night team. 03/09/19 18:59 *DC/Admit/Observation/Transfer Diagnosis at time of Disposition: Abdominal pain Qualifiers: Abdominal location: generalized Qualified Code(s): R10.84 - Generalized abdominal pain - Discharge Dispostion Condition at time of disposition: Stable - Referrals - Patient Instructions - Post Discharge Activity
[2019-03-09] MEDS ORDERED: ONDANSETRON 4 MG/2 ML VIAL IVPUSH ONE (17:08)
[2019-03-09] MEDS ORDERED: ACETAMINOPHEN 1000 MG/100 ML VIAL (NON FORMULARY) IVPB ONE (17:08)
--- NOTE | 2019-03-09 17:39 | PDOC ---
Attending Attestation - Resident Resident Name: Isabel Puckett - ED Attending Attestation I have performed the following: I have examined & evaluated the patient, The case was reviewed & discussed with the resident, I agree w/resident's findings & plan, Exceptions are as noted - HPI HPI: 03/09/19 17:40 Ms. Rosas is a 48 yo F h/o HTN, CVA (left sided weakness), HLD, IDDM, DKA resulting in multiple admissions, dysphagia, gastroparesis, esophageal stricture (EGD 02/14), c/diff (10/2018), SBO September 2018 (s/p SB resection @ [facility] as per pt report), s/p Cardiac Surgery (to remove clot @ [facility] [place]) who was seen in the ER a few days ago for assessment of draining from her right femoral area where femoral line was placed. Pt returned to the her PMD Dr Chaudhary today for re assessment of her wound En Route, pt reported that she developed severe abdominal pain No vomiting No fevers or chills No diarrhea - Physicial Exam PE: 03/09/19 17:43 GENERAL: The patient is in no acute distress. ENT: Ears normal, nares patent, oropharynx clear without exudates. Moist mucous membranes. NECK: Normal range of motion, supple LUNGS: Breath sounds equal, clear to auscultation bilaterally. No wheezes, and no crackles. HEART:Regular rate and rhythm, normal S1 and S2 without murmur, rub or gallop. ABDOMEN: Soft, nontender, normoactive bowel sounds. EXTREMITIES: Normal range of motion, no edema. NEUROLOGICAL: Cranial nerves II through XII grossly intact. Normal speech. No focal neurological deficits. SKIN: Warm, Dry, normal turgor, no rashes or lesions noted. - Medical Decision Making 03/09/19 17:44 48 yo F with a complicated history presenting with abdominal pain DD is broad and includes SBO DKA Bowel ischemia Intraabdominal infection Pt is very difficult access Will do labs CT with po contrast Low threshold to transfer If DKA, will need to go to [facility] 03/09/19 18:37 Laboratory Tests 03/09/19 03/09/19 03/09/19 17:00 17:55 18:28 Sodium 127 L Potassium 3.5 Chloride 91 L Carbon Dioxide 21 Anion Gap 15 BUN 22.0 H Creatinine 1.0 Random Glucose 392 H Urine Blood Negative Urine Nitrite Negative Ur Leukocyte Esterase Negative Urine HCG, Qual Negative CT pending IV access very challenging Will scan without IV contrast Signed out to Dr De La Vega
[2019-03-09 18:18] LABS: ALBUMIN 3.3 g/dl (3.4-5.0); BILIRUBIN,TOTAL 0.5 mg/dl (0.2-1); CALCIUM 8.9 mg/dl (8.5-10); POTASSIUM 3.5 mmol/L (3.5-5.1); TOT PROT 6.1 g/dl (6.4-8.2)
[2019-03-09 18:25] LABS: HEMOGLOBIN 9.7 GM/dl (10.7-15.3)
[2019-03-09 18:28] LABS: HEMATOCRIT 30.3 % (32.4-45.2); MCH 26.4 pg (25.7-33.7); MCHC 32.1 g/dl (32.0-36.0); MEAN CELL VOLUME 82.3 fl (80-96); MEAN PLT VOLUME 7.9 fl (7.5-11.1); PLATELET COUNT 483 K/MM3 (134-434); RBC 3.69 M/mm3 (3.60-5.2); RDW 20.1 % (11.6-15.6); WHITE BLOOD COUNT 13.2 K/mm3 (4.0-10.8)
[2019-03-09] MEDS ORDERED: ONDANSETRON *ODT* 4 MG TABLET SL ONE (18:30)
[2019-03-09] MEDS ORDERED: INSULIN (LEVEMIR) 100 UNITS/ML UNITS SQ ONE (18:35)
[2019-03-09 18:38] LABS: ADD RBC MORPHOLOGY YES
[2019-03-09] MEDS ORDERED: ONDANSETRON *ODT* 4 MG TABLET ONE (18:47)
[2019-03-09 19:16] LABS: ANISOCYTOSIS 2+; PLATELET ESTIMATE SLT INCREASE
--- NOTE | 2019-03-09 19:32 | PDOC ---
*Physical Exam - Vital Signs Last Vital Signs Temp Pulse Resp BP Pulse Ox 98.2 F 99 H 19 107/78 100 03/09/19 16:47 03/09/19 16:47 03/09/19 16:47 03/09/19 16:47 03/09/19 16:47 ED Treatment Course - LABORATORY CBC & Chemistry Diagram: 03/09/19 17:55 03/09/19 17:55 - ADDITIONAL ORDERS Additional order review: Laboratory Results 03/09/19 03/09/19 03/09/19 18:29 18:28 17:55 Sodium Potassium Chloride Carbon Dioxide Anion Gap BUN Creatinine Est GFR (CKD-EPI)AfAm Est GFR (CKD-EPI)NonAf POC Glucometer 388 Random Glucose Calcium Total Bilirubin AST ALT Alkaline Phosphatase Total Protein Albumin Lipase 58 L Urine Color Urine Appearance Urine pH Urine Protein Urine Glucose (UA) Urine Ketones Urine Blood Urine Nitrite Urine Bilirubin Urine Urobilinogen Ur Leukocyte Esterase Urine HCG, Qual Negative 03/09/19 03/09/19 17:55 17:00 Sodium 127 L Potassium 3.5 Chloride 91 L Carbon Dioxide 21 Anion Gap 15 BUN 22.0 H Creatinine 1.0 Est GFR (CKD-EPI)AfAm 76.61 Est GFR (CKD-EPI)NonAf 66.10 POC Glucometer Random Glucose 392 H Calcium 8.9 Total Bilirubin 0.5 AST 15 ALT 16 Alkaline Phosphatase 106 Total Protein 6.1 L Albumin 3.3 L Lipase Urine Color Yellow Urine Appearance Clear Urine pH 5.5 Urine Protein Trace Urine Glucose (UA) 3+ H Urine Ketones Negative Urine Blood Negative Urine Nitrite Negative Urine Bilirubin Negative Urine Urobilinogen 0.2 Ur Leukocyte Esterase Negative Urine HCG, Qual 03/09/19 03/09/19 18:29 17:55 RBC 3.69 MCV 82.3 MCHC 32.1 RDW 20.1 H D MPV 7.9 Neutrophils % No Result Required. Lymphocytes % No Result Required. POC Glucometer 388 - Medications Given in the ED: ED Medications Discontinued Medications Generic Name Dose Route Start Last Admin Trade Name Freq PRN Reason Stop Dose Admin Insulin Detemir 12 units 03/09/19 18:35 03/09/19 19:19 Levemir Vial SQ 03/09/19 18:36 12 units ONCE ONE Administration Ondansetron HCl 4 mg 03/09/19 18:30 03/09/19 18:49 Zofran Odt - SL 03/09/19 18:31 4 mg ONCE ONE Administration Progress Note - Progress Note Progress Note: This is a 48-year-old female who has multiple admissions and ED visits for many chronic medical problems. Patient is very poorly compliant with her medical care and recently had a small bowel resection and it was further complicated by her for a controlled diabetes and blood sounds like may have been a embolism. Patient now comes in from her primary care doctor's office for evaluation of abdominal pain. Patient's white count is moderately elevated and she has a CAT scan with by mouth contrast pending.. 23:00 Patient has a small bowel obstruction seen on CT. Discussed case with Dr. Krishnamurthy. Dr. Krishnamurthy will see the patient in the morning patient will be admitted to the hospitalist service. Patient was a very difficult stick and just got an IV line with IV fluids going recently. In addition to that patient was given some insulin her insulin and repeat is now down to 200 patient given pain medication and it maintained made aware of her need to for admission *DC/Admit/Observation/Transfer Diagnosis at time of Disposition: Small bowel obstruction Abdominal pain Qualifiers: Abdominal location: generalized Qualified Code(s): R10.84 - Generalized abdominal pain - Discharge Dispostion Condition at time of disposition: Stable Decision to Admit order: Yes - Referrals - Patient Instructions - Post Discharge Activity
[2019-03-09] MEDS ORDERED: SODIUM CHLORIDE 1,000 ML IV ONE (22:48)
[2019-03-09] MEDS ORDERED: INSULIN REGULAR HUMAN 100 UNITS/ML *VIAL IVPUSH ONE (22:49)
[2019-03-09] MEDS ORDERED: HYDROmorphone HCL CARPU-JECT 1 MG/1 ML DISP.SYRIN IVPUSH ONE (22:49)
[2019-03-09] MEDS ORDERED: HYDROmorphone HCL CARPU-JECT 1 MG/1 ML DISP.SYRIN ONE (23:02)
[2019-03-09] MEDS ORDERED: SODIUM CHLORIDE 1,000 ML IV SCH (23:45)
[2019-03-10] MEDS ORDERED: HYDROmorphone HCL CARPU-JECT 1 MG/1 ML DISP.SYRIN IVPUSH ONE ×2 (00:31→11:00)
[2019-03-10] MEDS ORDERED: HYDROmorphone HCL CARPU-JECT 1 MG/1 ML DISP.SYRIN ONE (01:05)
[2019-03-10] MEDS ORDERED: DEXTROSE 50%-WATER - 25 GM/50 ML VIAL IVPUSH ONE ×4 (04:03→11:42)
[2019-03-10] MEDS: RIVAROXABAN 15 MG TABLET PO SCH ×3 (04:18→22:00)
[2019-03-10] MEDS: INSULIN SLIDING SCALE (NOVOLOG) 1 VIAL SQ SCH ×4 (06:29→22:45)
[2019-03-10] MEDS ORDERED: ACETAMINOPHEN 1000 MG/100 ML VIAL (NON FORMULARY) IVPB ONE (06:39)
[2019-03-10 07:35] LABS: BASO % 1.3 % (0-2.0); EOS % 0.4 % (0-4.5); HEMATOCRIT 31.9 % (32.4-45.2); HEMOGLOBIN 10.5 GM/dl (10.7-15.3); LYMPH % 13.5 % (8-40); MCH 26.7 pg (25.7-33.7); MCHC 32.9 g/dl (32.0-36.0); MEAN PLT VOLUME 7.1 fl (7.5-11.1); MONO % 1.8 % (3.8-10.2); PLATELET COUNT 332 K/MM3 (134-434); RBC 3.94 M/mm3 (3.60-5.2); WHITE BLOOD COUNT 10.7 K/mm3 (4.0-10.8)
[2019-03-10 07:47] LABS: ALBUMIN 2.7 g/dl (3.4-5.0); BILIRUBIN,TOTAL 0.6 mg/dl (0.2-1); CALCIUM 8.7 mg/dl (8.5-10); CREATININE 0.8 mg/dl (0.55-1.3); MAGNESIUM 1.7 mg/dL (1.8-2.4); PHOSPHOROUS 3.2 mg/dl (2.5-4.9); POTASSIUM 3.4 mmol/L (3.5-5.1); TOT PROT 5.5 g/dl (6.4-8.2)
--- NOTE | 2019-03-10 09:24 | HP ---
CHIEF COMPLAINT: Abdominal pain PCP: Dr. Chaudhary HISTORY OF PRESENT ILLNESS: 48 year-old female with a PMH significant for Type I IDDM, frequent admissions for DKA, HTN, HLD, CVA with left-sided weakness. Recent hospitalization at [facility] [place] September 2018 for SBO. Patient also states she had open heart surgery at [facility] [place] for "a clot in my heart" at or about the same time as surgery for the SBO (efforts to get medical records from [facility] [place] ongoing). Patient states she was on her way for a checkup with Dr. Chaudhary when she developed sharp abdominal pain so she came to the ED. Patient has not had BM or passed flatus since onset of pain yesterday around 3pm. Last BM was day before yesterday. NGT placed in ED > 1000cc output greenish/brown fluid. ER course was notable for: (1) afebrile, no leukocytosis (2) K 3.4, glucose 48 Recent Travel: Unknown PAST MEDICAL HISTORY: Type I IDDM Hypertension Hyperlipidemia CVA PAST SURGICAL HISTORY: Lap cholecsytectomy Colectomy Heart surgery Social History: Smoking: current smoker Alcohol: no Drugs: no Family History: non-contributory Allergies No Known Allergies Allergy (Verified 03/09/19 16:48) HOME MEDICATIONS: Home Medications Medication Instructions Recorded Aspirin 81 mg PO DAILY #30 tab.chew 08/13/18 Atorvastatin Ca [Lipitor] 40 mg PO HS #30 tablet 08/13/18 Gabapentin 300 mg PO BID 12/23/18 Quetiapine Fumarate [Seroquel -] 25 mg PO BID 12/23/18 Insulin Sliding Scale [Novolog 1 vial SQ ACHS #600 units 12/25/18 Vial Sliding Scale -] Rivaroxaban [Xarelto] 15 mg PO BID #60 tablet 12/25/18 predniSONE [Deltasone -] 40 mg PO DAILY #30 tablet 12/25/18 traMADol HCL [Ultram -] 100 mg PO Q8H PRN #90 tablet MDD 6 12/25/18 Insulin Detemir [Levemir Flextouch] 12 unit SQ BID 01/26/19 Amoxicillin/Potassium Clav 1 each PO BID 03/07/19 [Augmentin 875-125 Tablet] HYDROmorphone [Dilaudid -] 4 mg PO Q6H PRN 03/07/19 REVIEW OF SYSTEMS CONSTITUTIONAL: Absent: fever, chills, diaphoresis, generalized weakness, malaise, loss of appetite, weight change HEENT: Absent: rhinorrhea, nasal congestion, throat pain, throat swelling, difficulty swallowing, mouth swelling, ear pain, eye pain, visual changes CARDIOVASCULAR: Absent: chest pain, syncope, palpitations, irregular heart rate, lightheadedness , peripheral edema RESPIRATORY: Absent: cough, shortness of breath, dyspnea with exertion, orthopnea, wheezing, stridor, hemoptysis GASTROINTESTINAL: +abdominal pain Absent: abdominal distension, nausea, vomiting, diarrhea, constipation, melena , hematochezia GENITOURINARY: Absent: dysuria, frequency, urgency, hesitancy, hematuria, flank pain, genital pain MUSCULOSKELETAL: Absent: myalgia, arthralgia, joint swelling, back pain, neck pain SKIN: Absent: rash, itching, pallor HEMATOLOGIC/IMMUNOLOGIC: Absent: easy bleeding, easy bruising, lymphadenopathy, frequent infections ENDOCRINE: Absent: unexplained weight gain, unexplained weight loss, heat intolerance, cold intolerance NEUROLOGIC: Absent: headache, focal weakness or paresthesias, dizziness, unsteady gait, seizure, mental status changes, bladder or bowel incontinence PSYCHIATRIC: Absent: anxiety, depression, suicidal or homicidal ideation, hallucinations. PHYSICAL EXAMINATION Vital Signs - 24 hr 03/09/19 03/09/19 03/10/19 16:47 20:13 01:15 Temperature 98.2 F Pulse Rate 99 H Pulse Rate [ 106 H Left] Respiratory 19 Rate Blood Pressure 107/78 Blood Pressure 98/60 [Right Arm] O2 Sat by Pulse 100 97 95 Oximetry (%) 03/10/19 03/10/19 03/10/19 01:20 02:58 04:28 Temperature 98.3 F 98.3 F Pulse Rate 108 H 110 H Pulse Rate [ 64 Left] Respiratory 20 20 18 Rate Blood Pressure 95/55 L 100/57 L Blood Pressure 92/60 [Right Arm] O2 Sat by Pulse 97 97 Oximetry (%) 03/10/19 03/10/19 09:00 09:18 Temperature 99.7 F H Pulse Rate 117 H Pulse Rate [ Left] Respiratory 20 Rate Blood Pressure 90/47 L Blood Pressure [Right Arm] O2 Sat by Pulse 97 96 Oximetry (%) GENERAL: Awake, alert, and fully oriented, in mild distress secondary to pain HEAD: Normal with no signs of trauma. EYES: Pupils equal, round and reactive to light, extraocular movements intact, sclera anicteric, conjunctiva clear. No lid lag. LUNGS: Breath sounds equal, clear to auscultation bilaterally. No wheezes, and no crackles. No accessory muscle use. HEART: Regular rate and rhythm, normal S1 and S2, mediastinal scar ABDOMEN: Soft, nontender, diffusely tender, hypoactive bowel sounds; well- healed abdominal scars MUSCULOSKELETAL: Normal range of motion at all joints. No bony deformities or tenderness. UPPER EXTREMITIES: 2+ pulses, warm, well-perfused. No cyanosis. No clubbing. No peripheral edema. LOWER EXTREMITIES: 2+ pulses, warm, well-perfused. No calf tenderness. No peripheral edema. NEUROLOGICAL: Cranial nerves II-XII intact. Normal speech. Laboratory Results - last 24 hr 03/09/19 03/09/19 03/09/19 17:00 17:55 17:55 WBC 13.2 H RBC 3.69 Hgb 9.7 L Hct 30.3 L MCV 82.3 MCH 26.4 MCHC 32.1 RDW 20.1 H D Plt Count 483 H MPV 7.9 Absolute Neuts (auto) Neutrophils % No Result Required. Neutrophils % (Manual) 81.0 Band Neutrophils % 2.0 Lymphocytes % No Result Required. Lymphocytes % (Manual) 15.0 Monocytes % Monocytes % (Manual) 2 L Eosinophils % Basophils % Hypochromia 1+ Platelet Estimate Slt increase Poikilocytosis 1+ Anisocytosis 2+ Sodium 127 L Potassium 3.5 Chloride 91 L Carbon Dioxide 21 Anion Gap 15 BUN 22.0 H Creatinine 1.0 Est GFR (CKD-EPI)AfAm 76.61 Est GFR (CKD-EPI)NonAf 66.10 POC Glucometer Random Glucose 392 H Hemoglobin A1c % Calcium 8.9 Phosphorus Magnesium Total Bilirubin 0.5 AST 15 ALT 16 Alkaline Phosphatase 106 Total Protein 6.1 L Albumin 3.3 L Lipase Urine Color Yellow Urine Appearance Clear Urine pH 5.5 Urine Protein Trace Urine Glucose (UA) 3+ H Urine Ketones Negative Urine Blood Negative Urine Nitrite Negative Urine Bilirubin Negative Urine Urobilinogen 0.2 Ur Leukocyte Esterase Negative Urine HCG, Qual 03/09/19 03/09/19 03/09/19 17:55 18:28 18:29 WBC RBC Hgb Hct MCV MCH MCHC RDW Plt Count MPV Absolute Neuts (auto) Neutrophils % Neutrophils % (Manual) Band Neutrophils % Lymphocytes % Lymphocytes % (Manual) Monocytes % Monocytes % (Manual) Eosinophils % Basophils % Hypochromia Platelet Estimate Poikilocytosis Anisocytosis Sodium Potassium Chloride Carbon Dioxide Anion Gap BUN Creatinine Est GFR (CKD-EPI)AfAm Est GFR (CKD-EPI)NonAf POC Glucometer 388 Random Glucose Hemoglobin A1c % Calcium Phosphorus Magnesium Total Bilirubin AST ALT Alkaline Phosphatase Total Protein Albumin Lipase 58 L Urine Color Urine Appearance Urine pH Urine Protein Urine Glucose (UA) Urine Ketones Urine Blood Urine Nitrite Urine Bilirubin Urine Urobilinogen Ur Leukocyte Esterase Urine HCG, Qual Negative 03/09/19 03/10/19 03/10/19 22:59 03:48 05:01 WBC RBC Hgb Hct MCV MCH MCHC RDW Plt Count MPV Absolute Neuts (auto) Neutrophils % Neutrophils % (Manual) Band Neutrophils % Lymphocytes % Lymphocytes % (Manual) Monocytes % Monocytes % (Manual) Eosinophils % Basophils % Hypochromia Platelet Estimate Poikilocytosis Anisocytosis Sodium Potassium Chloride Carbon Dioxide Anion Gap BUN Creatinine Est GFR (CKD-EPI)AfAm Est GFR (CKD-EPI)NonAf POC Glucometer 219 47 122 Random Glucose Hemoglobin A1c % Calcium Phosphorus Magnesium Total Bilirubin AST ALT Alkaline Phosphatase Total Protein Albumin Lipase Urine Color Urine Appearance Urine pH Urine Protein Urine Glucose (UA) Urine Ketones Urine Blood Urine Nitrite Urine Bilirubin Urine Urobilinogen Ur Leukocyte Esterase Urine HCG, Qual 03/10/19 03/10/19 03/10/19 06:24 07:20 07:20 WBC 10.7 RBC 3.94 Hgb 10.5 L Hct 31.9 L MCV 81.0 MCH 26.7 MCHC 32.9 RDW 20.0 H Plt Count 332 MPV 7.1 L Absolute Neuts (auto) 9.0 Neutrophils % 83.0 H Neutrophils % (Manual) Band Neutrophils % Lymphocytes % 13.5 Lymphocytes % (Manual) Monocytes % 1.8 L Monocytes % (Manual) Eosinophils % 0.4 Basophils % 1.3 Hypochromia Platelet Estimate Poikilocytosis Anisocytosis Sodium Potassium Chloride Carbon Dioxide Anion Gap BUN Creatinine Est GFR (CKD-EPI)AfAm Est GFR (CKD-EPI)NonAf POC Glucometer 76 Random Glucose Hemoglobin A1c % 9.8 H Calcium Phosphorus Magnesium Total Bilirubin AST ALT Alkaline Phosphatase Total Protein Albumin Lipase Urine Color Urine Appearance Urine pH Urine Protein Urine Glucose (UA) Urine Ketones Urine Blood Urine Nitrite Urine Bilirubin Urine Urobilinogen Ur Leukocyte Esterase Urine HCG, Qual 03/10/19 03/10/19 03/10/19 07:20 07:57 08:07 WBC RBC Hgb Hct MCV MCH MCHC RDW Plt Count MPV Absolute Neuts (auto) Neutrophils % Neutrophils % (Manual) Band Neutrophils % Lymphocytes % Lymphocytes % (Manual) Monocytes % Monocytes % (Manual) Eosinophils % Basophils % Hypochromia Platelet Estimate Poikilocytosis Anisocytosis Sodium 134 L Potassium 3.4 L Chloride 98 Carbon Dioxide 27 Anion Gap 9 BUN 17.0 Creatinine 0.8 Est GFR (CKD-EPI)AfAm 100.33 Est GFR (CKD-EPI)NonAf 86.57 POC Glucometer 45 217 Random Glucose 48 L* Hemoglobin A1c % Calcium 8.7 Phosphorus 3.2 Magnesium 1.7 L Total Bilirubin 0.6 AST 14 L ALT 13 Alkaline Phosphatase 98 Total Protein 5.5 L Albumin 2.7 L Lipase Urine Color Urine Appearance Urine pH Urine Protein Urine Glucose (UA) Urine Ketones Urine Blood Urine Nitrite Urine Bilirubin Urine Urobilinogen Ur Leukocyte Esterase Urine HCG, Qual ASSESSMENT/PLAN: 48 year-old female with a PMH significant for Type I IDDM, frequent admissions for DKA, HTN, HLD, CVA with left-sided weakness. Recent hospitalization at [facility] [place] September 2018 for SBO. Patient also states she had open heart surgery at [facility] [place] for "a clot in my heart" within the past few months. Admitted for SBO. Small bowel obstruction --NGT >1000cc brown/green output, continue to LWS --surgery Dr. Brown following Type II IDDM --difficult to control glucose levels --switch NS to D5NS --D50 PRN --replete electrolytes Hypokalemia --replete NPO DVT prophylaxis: on Eliquis Visit type - Emergency Visit Emergency Visit: Yes ED Registration Date: 03/09/19 Care time: The patient presented to the Emergency Department on the above date and was hospitalized for further evaluation of their emergent condition. - New Patient This patient is new to me today: Yes Date on this admission: 03/10/19 - Critical Care Critical Care patient: No
[2019-03-10] MEDS ORDERED: DEXTROSE 50%-WATER 25 GM/50 ML DISP.SYRIN ONE (10:10)
[2019-03-10] MEDS ORDERED: DEXTROSE 50%-WATER - 25 GM/50 ML VIAL IVPUSH PRN (10:18)
--- NOTE | 2019-03-10 10:23 | EKG ---
Test Reason : Blood Pressure : / mmHG Vent. Rate : 108 BPM Atrial Rate : 108 BPM P-R Int : 114 ms QRS Dur : 088 ms QT Int : 300 ms P-R-T Axes : 056 060 168 degrees QTc Int : 402 ms SINUS TACHYCARDIA POSSIBLE LEFT ATRIAL ENLARGEMENT T WAVE ABNORMALITY, CONSIDER INFEROLATERAL ISCHEMIA ABNORMAL ECG WHEN COMPARED WITH ECG OF 26-JAN-2019 20:01, T WAVE INVERSION NOW EVIDENT IN LATERAL LEADS QT HAS SHORTENED Confirmed by DEBORAH ALONSO, KAILASH ([id number]) on 03/10/2019 10:22:30 AM Referred By: RAFIQ AMAYA Confirmed By:KAILASH CABRERA MD
[2019-03-10] MEDS ORDERED: DEXTROSE 5%-NORMAL SALINE 1,000 ML IV SCH (10:30)
[2019-03-10] MEDS ORDERED: MAGNESIUM SULF 50% (8.12 MEQ/2 ML-1 GM VIAL) IVPB ONE (10:40)
[2019-03-10] MEDS ORDERED: MAGNESIUM SULFATE IN WATER 2 GM/50 ML IVPB IVPB ONE (11:00)
--- NOTE | 2019-03-10 11:46 | CONSULT ---
Consult Consult Specialty:: General Surgery Reason for Consultation:: SBO - History of Present Illness Chief Complaint: andominal pain History of Present Illness: 48yo female PMH HTN, CVA (left sided hemiparesis), HLD, IDDM, DKA resulting in multiple admissions, dysphagia, gastroparesis, esophageal stricture (EGD 02/14), c/diff (10/2018), SBO September 2018 (s/p SB resection at [facility] as per pt report) presented to [place] ED on the afternoon of 12/21 with complaints of N/V/D/ abd pain intermittently for years. Associated symptoms include malaise, dizziness, low grade fever, chills, anorexia, urinary frequency and dysuria. Due to the severity of her symptoms. We were called to assess - History Source History Provided By: Patient, Medical Record Limitations to Obtaining History: No Limitations - Past Medical History [employer]: Yes: CVA (right MCA), Migraine Cardio/Vascular: Yes: Hyperlipdemia Gastrointestinal: Yes: Other (Gastroparesis) ...LMP: 04/14/13 Musculoskeletal: Yes: Chronic low back pain Endocrine: Yes: Diabetes Mellitus Additional Medical History: dka in the past - Past Surgical History Past Surgical History: Yes: Cholecystectomy - Alcohol/Substance Use Hx Alcohol Use: No History of Substance Use: reports: None - Smoking History Smoking history: Current every day smoker Have you smoked in the past 12 months: Yes Aproximately how many cigarettes per day: 10 - Social History ADL: Independent Occupation: Unemployed History of Recent Travel: No Home Medications - Allergies Allergies/Adverse Reactions: Allergies Allergy/AdvReac Type Severity Reaction Status Date / Time No Known Allergies Allergy Verified 03/09/19 16:48 - Home Medications Home Medications: Ambulatory Orders Aspirin 81 mg PO DAILY #30 tab.chew 08/13/18 Atorvastatin Ca [Lipitor] 40 mg PO HS #30 tablet 08/13/18 Gabapentin 300 mg PO BID 12/23/18 Quetiapine Fumarate [Seroquel -] 25 mg PO BID 12/23/18 Insulin Sliding Scale [Novolog Vial Sliding Scale -] 1 vial SQ ACHS #600 units 12/25/18 Rivaroxaban [Xarelto] 15 mg PO BID #60 tablet 12/25/18 predniSONE [Deltasone -] 40 mg PO DAILY #30 tablet 12/25/18 traMADol HCL [Ultram -] 100 mg PO Q8H PRN #90 tablet MDD 6 12/25/18 Insulin Detemir [Levemir Flextouch] 12 unit SQ BID 01/26/19 Amoxicillin/Potassium Clav [Augmentin 875-125 Tablet] 1 each PO BID 03/07/19 HYDROmorphone [Dilaudid -] 4 mg PO Q6H PRN 03/07/19 Family Disease History - Family Disease History Family Disease History: Heart Disease: Father (cad), Other: Mother (Alive (70) well) Review of Systems - Review of Systems Constitutional: denies: Chills, Fever Eyes: denies: Blind Spots, Recent Change in Vision HENT: denies: Difficult Swallowing, Throat Pain Neck: denies: Pain on Movement, Tenderness Cardiovascular: denies: Chest Pain, Palpitations Respiratory: denies: Cough, SOB Gastrointestinal: reports: Abdominal Pain, Bloating, Constipation Genitourinary: denies: Discharge, Dysuria Breasts: reports: No Symptoms Reported. denies: Pain Musculoskeletal: denies: Joint Swelling, Muscle Pain, Muscle Cramps Integumentary: denies: Lesions, Lump Neurological: denies: Seizure, Syncope Endocrine: denies: Unexplained Weight Gain, Unexplained Weight Loss Hematology/Lymphatic: denies: Easily Bruised, Excessive Bleeding Psychiatric: denies: Anxiety, Depression Physical Exam Vital Signs: Vital Signs Temperature 99.7 F H 03/10/19 09:18 Pulse Rate 117 H 03/10/19 09:18 Respiratory Rate 20 03/10/19 09:18 Blood Pressure 90/47 L 03/10/19 09:18 O2 Sat by Pulse Oximetry (%) 96 03/10/19 09:18 Constitutional: Yes: Well Nourished, Calm, Mild Distress Eyes: Yes: Conjunctiva Clear, EOM Intact HENT: Yes: Atraumatic, Normocephalic Neck: Yes: Supple, Trachea Midline Cardiovascular: Yes: Tachycardia, S1, S2 Respiratory: Yes: Regular, CTA Bilaterally Gastrointestinal: Yes: Soft, Distention, Hypoactive Bowel Sounds, Tenderness ( diffusely tender lower quadrants bilaterally), Other (NGT in palce) ...Rectal Exam: Yes: Deferred Renal/: No: CVA Tenderness - Left, CVA Tenderness - Right Edema: No Peripheral Pulses WNL: Yes Integumentary: Yes: Incision. No: Jaundice, Rash Neurological: Yes: Alert, Oriented Psychiatric: Yes: Alert, Oriented Labs: CBC, BMP 03/10/19 07:20 03/10/19 07:20 Imaging - Results Cat Scan: Report Reviewed, Image Reviewed (SBO pattern with fecalized loops of SB, transition point in RLQ) Problem List - Problems (1) Small bowel obstruction Assessment/Plan: 48yo female with MMP including SBO, chronic constipation, Gastroparesis and crohns disease presenting with Abdominal pain. She has several possible explanations for this pain. She does not currently have peritonitis. No acute surgical intervention at this time. Monitored Setting NPO and IVF hydration NGT decompression suppositories and Chrons flare management GI evaluation Serial abdominal exams will follow periperally Code(s): K56.609 - UNSP INTESTNL OBST, UNSP TO PARTIAL VERSUS COMPLETE OBST (2) Abdominal pain Code(s): R10.9 - UNSPECIFIED ABDOMINAL PAIN Qualifiers: Abdominal location: generalized Qualified Code(s): R10.84 - Generalized abdominal pain (3) Crohn's disease Code(s): K50.90 - CROHN'S DISEASE, UNSPECIFIED, WITHOUT COMPLICATIONS (4) DKA (diabetic ketoacidoses) Code(s): E13.10 - OTH DIABETES MELLITUS WITH KETOACIDOSIS WITHOUT COMA Qualifiers: Diabetes mellitus type: type 1 Diabetes mellitus complication detail: without coma Qualified Code(s): E10.10 - Type 1 diabetes mellitus with ketoacidosis without coma (5) Nausea & vomiting Code(s): R11.2 - NAUSEA WITH VOMITING, UNSPECIFIED (6) Cerebrovascular accident (CVA) Code(s): I63.9 - CEREBRAL INFARCTION, UNSPECIFIED Qualifiers: CVA mechanism: unspecified Qualified Code(s): I63.9 - Cerebral infarction, unspecified
[2019-03-10] MEDS ORDERED: REFRIGERATED ANITBIOTICS ONE (12:20)
[2019-03-10] MEDS ORDERED: DEXTROSE 5%-NORMAL SALINE 250 ML IV ONE (13:52)
[2019-03-10] MEDS ORDERED: SODIUM CHLORIDE 1,000 ML IV STA (14:01)
[2019-03-10] MEDS ORDERED: SODIUM CHLORIDE 500 ML IV STA (14:02)
--- NOTE | 2019-03-10 14:06 | HOSP ---
Subjective - Review of Symptoms Events since last encounter: BP dropped 85/55 Rectal temp 100.0 Bolus 2L given Zosyn given K being repleted Lactic acid ordered Discussion with Dr. Krishnamurthy: no immediate surgical intervention indicated at this point Discussed with Dr. Galicia, accepted for transfer to ICU Physical Examination Vital Signs: Vital Signs Temperature 99.7 F H 03/10/19 09:18 Pulse Rate 117 H 03/10/19 09:18 Respiratory Rate 20 03/10/19 09:18 Blood Pressure 90/47 L 03/10/19 09:18 O2 Sat by Pulse Oximetry (%) 96 03/10/19 09:18 Labs: CBC, BMP 03/10/19 07:20 03/10/19 07:20
[2019-03-10] MEDS: KCL 10 MEQ IVPB 10 MEQ/100 ML INFUS.BAG IVPB SCH ×3 (14:20→15:00)
[2019-03-10] MEDS: PIPERACILLIN/TAZOB 3.375 GM 3.375 GM in DEXTROSE 5%-WATER - 50 ML IVPB SCH ×2 (14:48→17:05)
[2019-03-10] MEDS ORDERED: HYDROmorphone HCl 2 MG/ML VIAL IVPUSH PRN (16:36)
[2019-03-10] MEDS ORDERED: LACTATED RINGERS SOLUTION 1,000 ML/1,000 ML INFUS.BAG IV STA ×3 (16:47→22:35)
--- NOTE | 2019-03-10 16:56 | CONSULT ---
Consultation: REQUESTING PROVIDER: CONSULT REQUEST: We have been asked to medically evaluate this patient for ICU care. HISTORY OF PRESENT ILLNESS: Patient is a 48F with history of Type I IDDM, PE (on xarelto), frequent admissions for DKA, HTN, HLD, CVA with left-sided weakness, recent hospitalization at [facility] September 2018 for SBO here today with abdominal pain. Patient was admitted yesterday for SBO at , but became febrile, hypotensive and tachycardic and was subsequently transferred for ICU care. Given 1L and zosyn. Patient endorses diffuse abdominal pain and is unsure of when her last bowel movement was. Denies dysuria. Endorses nausea, denies vomiting. Endorses shortness of breath 2/2 pain in abdomen with breathing. Denies chest pain. Dr Krishnamurthy, general surgery, has been consulted. REVIEW OF SYSTEMS: CONSTITUTIONAL: Absent: fever, diaphoresis, generalized weakness Present: chills, loss of appetite HEENT: Absent: rhinorrhea, nasal congestion, throat pain, throat swelling, difficulty swallowing CARDIOVASCULAR: Absent: chest pain, syncope, palpitations, irregular heart rate, lightheadedness , peripheral edema RESPIRATORY: Absent: cough, shortness of breath, dyspnea with exertion, orthopnea, wheezing, stridor, hemoptysis GASTROINTESTINAL: Present: abdominal pain, abdominal distension, nausea, vomiting Absent: constipation, diarrhea GENITOURINARY: Absent: dysuria, frequency, urgency, hesitancy, hematuria MUSCULOSKELETAL: Absent: myalgia, arthralgia, joint swelling, back pain, neck pain SKIN: Absent: rash, itching, pallor HEMATOLOGIC/IMMUNOLOGIC: Absent: easy bleeding, easy bruising, lymphadenopathy, frequent infections ENDOCRINE: Absent: unexplained weight gain, unexplained weight loss, heat intolerance, cold intolerance NEUROLOGIC: Absent: headache, focal weakness or paresthesias, bladder or bowel incontinence PSYCHIATRIC: Absent: anxiety, depression, suicidal or homicidal ideation, hallucinations. PHYSICAL EXAMINATION Vital Signs - 24 hr 03/09/19 03/10/19 03/10/19 20:13 01:15 01:20 Temperature Pulse Rate Pulse Rate [ 106 H 64 Left] Respiratory 20 Rate Blood Pressure Blood Pressure 98/60 92/60 [Right Arm] O2 Sat by Pulse 97 95 97 Oximetry (%) 03/10/19 03/10/19 03/10/19 02:58 04:28 09:00 Temperature 98.3 F 98.3 F Pulse Rate 108 H 110 H Pulse Rate [ Left] Respiratory 20 18 Rate Blood Pressure 95/55 L 100/57 L Blood Pressure [Right Arm] O2 Sat by Pulse 97 97 Oximetry (%) 03/10/19 03/10/19 03/10/19 09:18 14:00 14:55 Temperature 99.7 F H 99.7 F H 100.0 F H Pulse Rate 117 H 126 H 117 H Pulse Rate [ Left] Respiratory 20 20 20 Rate Blood Pressure 90/47 L 85/55 L 108/60 Blood Pressure [Right Arm] O2 Sat by Pulse 96 Oximetry (%) GENERAL: Awake, alert, and fully oriented. Appears uncomfortable, laying on side. HEAD: Normal with no signs of trauma. EYES: Pupils equal, round and reactive to light, extraocular movements intact, sclera anicteric, conjunctiva clear. EARS, NOSE, THROAT: Ears normal, nares patent, oropharynx clear without exudates. Moist mucous membranes. NECK: Normal range of motion, supple without lymphadenopathy, JVD, or masses. LUNGS: Breath sounds equal, clear to auscultation bilaterally. No wheezes, and no crackles. No accessory muscle use. HEART: Tachycardic, normal S1 and S2 without murmur, rub or gallop. ABDOMEN: Diffusely tender and mildly distended. No guarding, no rebound. MUSCULOSKELETAL: Normal range of motion at all joints. No bony deformities or tenderness. No CVA tenderness. UPPER EXTREMITIES: 2+ pulses, warm, well-perfused. No cyanosis. No clubbing. Cap refill <2 seconds. No peripheral edema. LOWER EXTREMITIES: 2+ pulses, warm, well-perfused. No calf tenderness. No peripheral edema. NEUROLOGICAL: Cranial nerves II-XII intact. Normal speech. Moving all extremities PSYCHIATRIC: Cooperative. Good eye contact. Appropriate mood and affect. SKIN: Warm, dry, normal turgor, no rashes or lesions noted. Laboratory Results - last 24 hr 03/09/19 03/09/19 03/09/19 17:00 17:55 17:55 WBC 13.2 H RBC 3.69 Hgb 9.7 L Hct 30.3 L MCV 82.3 MCH 26.4 MCHC 32.1 RDW 20.1 H D Plt Count 483 H MPV 7.9 Absolute Neuts (auto) Neutrophils % No Result Required. Neutrophils % (Manual) 81.0 Band Neutrophils % 2.0 Lymphocytes % No Result Required. Lymphocytes % (Manual) 15.0 Monocytes % Monocytes % (Manual) 2 L Eosinophils % Basophils % Hypochromia 1+ Platelet Estimate Slt increase Poikilocytosis 1+ Anisocytosis 2+ Sodium 127 L Potassium 3.5 Chloride 91 L Carbon Dioxide 21 Anion Gap 15 BUN 22.0 H Creatinine 1.0 Est GFR (CKD-EPI)AfAm 76.61 Est GFR (CKD-EPI)NonAf 66.10 POC Glucometer Random Glucose 392 H Hemoglobin A1c % Calcium 8.9 Phosphorus Magnesium Total Bilirubin 0.5 AST 15 ALT 16 Alkaline Phosphatase 106 Total Protein 6.1 L Albumin 3.3 L Lipase Urine Color Yellow Urine Appearance Clear Urine pH 5.5 Urine Protein Trace Urine Glucose (UA) 3+ H Urine Ketones Negative Urine Blood Negative Urine Nitrite Negative Urine Bilirubin Negative Urine Urobilinogen 0.2 Ur Leukocyte Esterase Negative Urine HCG, Qual Blood Type Antibody Screen Antibody Identification Antigen Identification 03/09/19 03/09/19 03/09/19 17:55 18:28 18:29 WBC RBC Hgb Hct MCV MCH MCHC RDW Plt Count MPV Absolute Neuts (auto) Neutrophils % Neutrophils % (Manual) Band Neutrophils % Lymphocytes % Lymphocytes % (Manual) Monocytes % Monocytes % (Manual) Eosinophils % Basophils % Hypochromia Platelet Estimate Poikilocytosis Anisocytosis Sodium Potassium Chloride Carbon Dioxide Anion Gap BUN Creatinine Est GFR (CKD-EPI)AfAm Est GFR (CKD-EPI)NonAf POC Glucometer 388 Random Glucose Hemoglobin A1c % Calcium Phosphorus Magnesium Total Bilirubin AST ALT Alkaline Phosphatase Total Protein Albumin Lipase 58 L Urine Color Urine Appearance Urine pH Urine Protein Urine Glucose (UA) Urine Ketones Urine Blood Urine Nitrite Urine Bilirubin Urine Urobilinogen Ur Leukocyte Esterase Urine HCG, Qual Negative Blood Type Antibody Screen Antibody Identification Antigen Identification 03/09/19 03/10/19 03/10/19 22:59 03:48 05:01 WBC RBC Hgb Hct MCV MCH MCHC RDW Plt Count MPV Absolute Neuts (auto) Neutrophils % Neutrophils % (Manual) Band Neutrophils % Lymphocytes % Lymphocytes % (Manual) Monocytes % Monocytes % (Manual) Eosinophils % Basophils % Hypochromia Platelet Estimate Poikilocytosis Anisocytosis Sodium Potassium Chloride Carbon Dioxide Anion Gap BUN Creatinine Est GFR (CKD-EPI)AfAm Est GFR (CKD-EPI)NonAf POC Glucometer 219 47 122 Random Glucose Hemoglobin A1c % Calcium Phosphorus Magnesium Total Bilirubin AST ALT Alkaline Phosphatase Total Protein Albumin Lipase Urine Color Urine Appearance Urine pH Urine Protein Urine Glucose (UA) Urine Ketones Urine Blood Urine Nitrite Urine Bilirubin Urine Urobilinogen Ur Leukocyte Esterase Urine HCG, Qual Blood Type Antibody Screen Antibody Identification Antigen Identification 03/10/19 03/10/19 03/10/19 06:24 07:20 07:20 WBC 10.7 RBC 3.94 Hgb 10.5 L Hct 31.9 L MCV 81.0 MCH 26.7 MCHC 32.9 RDW 20.0 H Plt Count 332 MPV 7.1 L Absolute Neuts (auto) 9.0 Neutrophils % 83.0 H Neutrophils % (Manual) Band Neutrophils % Lymphocytes % 13.5 Lymphocytes % (Manual) Monocytes % 1.8 L Monocytes % (Manual) Eosinophils % 0.4 Basophils % 1.3 Hypochromia Platelet Estimate Poikilocytosis Anisocytosis Sodium Potassium Chloride Carbon Dioxide Anion Gap BUN Creatinine Est GFR (CKD-EPI)AfAm Est GFR (CKD-EPI)NonAf POC Glucometer 76 Random Glucose Hemoglobin A1c % 9.8 H Calcium Phosphorus Magnesium Total Bilirubin AST ALT Alkaline Phosphatase Total Protein Albumin Lipase Urine Color Urine Appearance Urine pH Urine Protein Urine Glucose (UA) Urine Ketones Urine Blood Urine Nitrite Urine Bilirubin Urine Urobilinogen Ur Leukocyte Esterase Urine HCG, Qual Blood Type Antibody Screen Antibody Identification Antigen Identification 03/10/19 03/10/19 03/10/19 07:20 07:20 07:57 WBC RBC Hgb Hct MCV MCH MCHC RDW Plt Count MPV Absolute Neuts (auto) Neutrophils % Neutrophils % (Manual) Band Neutrophils % Lymphocytes % Lymphocytes % (Manual) Monocytes % Monocytes % (Manual) Eosinophils % Basophils % Hypochromia Platelet Estimate Poikilocytosis Anisocytosis Sodium 134 L Potassium 3.4 L Chloride 98 Carbon Dioxide 27 Anion Gap 9 BUN 17.0 Creatinine 0.8 Est GFR (CKD-EPI)AfAm 100.33 Est GFR (CKD-EPI)NonAf 86.57 POC Glucometer 45 Random Glucose 48 L* Hemoglobin A1c % Calcium 8.7 Phosphorus 3.2 Magnesium 1.7 L Total Bilirubin 0.6 AST 14 L ALT 13 Alkaline Phosphatase 98 Total Protein 5.5 L Albumin 2.7 L Lipase Urine Color Urine Appearance Urine pH Urine Protein Urine Glucose (UA) Urine Ketones Urine Blood Urine Nitrite Urine Bilirubin Urine Urobilinogen Ur Leukocyte Esterase Urine HCG, Qual Blood Type A NEGATIVE Antibody Screen Positive Antibody Identification Adig Antigen Identification No Result Required. 03/10/19 03/10/19 03/10/19 08:07 10:03 10:45 WBC RBC Hgb Hct MCV MCH MCHC RDW Plt Count MPV Absolute Neuts (auto) Neutrophils % Neutrophils % (Manual) Band Neutrophils % Lymphocytes % Lymphocytes % (Manual) Monocytes % Monocytes % (Manual) Eosinophils % Basophils % Hypochromia Platelet Estimate Poikilocytosis Anisocytosis Sodium Potassium Chloride Carbon Dioxide Anion Gap BUN Creatinine Est GFR (CKD-EPI)AfAm Est GFR (CKD-EPI)NonAf POC Glucometer 217 48 110 Random Glucose Hemoglobin A1c % Calcium Phosphorus Magnesium Total Bilirubin AST ALT Alkaline Phosphatase Total Protein Albumin Lipase Urine Color Urine Appearance Urine pH Urine Protein Urine Glucose (UA) Urine Ketones Urine Blood Urine Nitrite Urine Bilirubin Urine Urobilinogen Ur Leukocyte Esterase Urine HCG, Qual Blood Type Antibody Screen Antibody Identification Antigen Identification 03/10/19 03/10/19 03/10/19 11:28 12:01 13:25 WBC RBC Hgb Hct MCV MCH MCHC RDW Plt Count MPV Absolute Neuts (auto) Neutrophils % Neutrophils % (Manual) Band Neutrophils % Lymphocytes % Lymphocytes % (Manual) Monocytes % Monocytes % (Manual) Eosinophils % Basophils % Hypochromia Platelet Estimate Poikilocytosis Anisocytosis Sodium Potassium Chloride Carbon Dioxide Anion Gap BUN Creatinine Est GFR (CKD-EPI)AfAm Est GFR (CKD-EPI)NonAf POC Glucometer 61 182 144 Random Glucose Hemoglobin A1c % Calcium Phosphorus Magnesium Total Bilirubin AST ALT Alkaline Phosphatase Total Protein Albumin Lipase Urine Color Urine Appearance Urine pH Urine Protein Urine Glucose (UA) Urine Ketones Urine Blood Urine Nitrite Urine Bilirubin Urine Urobilinogen Ur Leukocyte Esterase Urine HCG, Qual Blood Type Antibody Screen Antibody Identification Antigen Identification 03/10/19 03/10/19 14:27 16:42 WBC RBC Hgb Hct MCV MCH MCHC RDW Plt Count MPV Absolute Neuts (auto) Neutrophils % Neutrophils % (Manual) Band Neutrophils % Lymphocytes % Lymphocytes % (Manual) Monocytes % Monocytes % (Manual) Eosinophils % Basophils % Hypochromia Platelet Estimate Poikilocytosis Anisocytosis Sodium Potassium Chloride Carbon Dioxide Anion Gap BUN Creatinine Est GFR (CKD-EPI)AfAm Est GFR (CKD-EPI)NonAf POC Glucometer 100 92 Random Glucose Hemoglobin A1c % Calcium Phosphorus Magnesium Total Bilirubin AST ALT Alkaline Phosphatase Total Protein Albumin Lipase Urine Color Urine Appearance Urine pH Urine Protein Urine Glucose (UA) Urine Ketones Urine Blood Urine Nitrite Urine Bilirubin Urine Urobilinogen Ur Leukocyte Esterase Urine HCG, Qual Blood Type Antibody Screen Antibody Identification Antigen Identification Active Medications Generic Name Dose Route Start Last Admin Trade Name Freq PRN Reason Stop Dose Admin Acetaminophen 1,000 mg 03/10/19 13:13 Ofirmev Injection - IVPB Q6H PRN PAIN LEVEL 1-5 Dextrose 25 gm 03/10/19 10:18 D50w (Vial) - IVPUSH PRN PRN HYPOGLYCEMIA Hydromorphone HCl 0.5 mg 03/10/19 16:36 Dilaudid Vial - IVPUSH Q4H PRN PAIN LEVEL 6-10 Piperacillin Sod/Tazobactam 50 mls @ 100 mls/hr 03/10/19 14:15 03/10/19 14:48 Sod 3.375 gm/ Dextrose IVPB 100 mls/hr Q8H-IV [facility] Administration Protocol Lactated Ringer's 1,000 ml in 1,000 mls @ 1,000 mls/hr 03/10/19 16:47 Lactated Ringers Solution IV 03/10/19 17:46 ONCE STA Dextrose/Lactated Ringer's 1,000 mls @ 100 mls/hr 03/10/19 17:00 D5-Lr - IV ASDIR [facility] Insulin Aspart 1 vial 03/10/19 07:00 03/10/19 10:50 Novolog Vial Sliding Scale - SQ Not Given ACHS [facility] Protocol Rivaroxaban 15 mg 03/09/19 23:45 03/10/19 10:23 Xarelto PO 15 mg BID [facility] Administration ASSESSMENT/PLAN: Patient is a 48F with history of Type I IDDM, PE (on xarelto), frequent admissions for DKA, HTN, HLD, CVA with left-sided weakness, recent hospitalization at [facility] September 2018 for SBO here today with SBO. Vitals signs stable after arrival. #Neuro - Pain control with dilaudid 0.5mg PRN Q4H - Tylenol for pain/fever control #CV - No longer hypotensive, but still tachycardic and afebrile. - CVP 3, will bolus 1L, start on 100cc/hr D5LR due to hypoglycemia throughout the day - Got xarelto in AM, will likely start heparin tomorrow AM #GI - CT shows SBO with transition point. - NPO, ng tube in place. - Pending surgery reqs #ID - On zosyn for GI abhijit coverage #FEN - 100cc/hr D5LR - NPO - Lytes in AM, replete PRN - BGMs Q4H PPx: Xarelto in AM, heparin in morning. Asif Fink PGY-3 Attending: Claudy Galicia Visit type - Emergency Visit Emergency Visit: Yes ED Registration Date: 03/09/19 Care time: The patient presented to the Emergency Department on the above date and was hospitalized for further evaluation of their emergent condition. - New Patient This patient is new to me today: Yes Date on this admission: 03/11/19 - Critical Care Critical Care patient: Yes Total Critical Care Time (in minutes): 45 Critical Care Statement: The care of this patient involved high complexity decision making to prevent further life threatening deterioration of the patient 's condition and/or to evaluate & treat vital organ system(s) failure or risk of failure. ATTENDING PHYSICIAN STATEMENT I saw and evaluated the patient. I reviewed the resident's note and discussed the case with the resident. I agree with the resident's findings and plan as documented. SUBJECTIVE: OBJECTIVE: ASSESSMENT AND PLAN:
[2019-03-10] MEDS ORDERED: DEXTROSE 5%-LACTATED RINGERS 1,000 ML IV SCH (17:00)
[2019-03-10] MEDS ORDERED: DEXTROSE 5%-WATER - 50 ML IVPB ONE (17:01)
[2019-03-10] MEDS ORDERED: PIPERACILLIN/TAZOBACTAM 3.375 GM VIAL IVPB ONE (17:01)
[2019-03-10] MEDS: ACETAMINOPHEN 1000 MG/100 ML VIAL (NON FORMULARY) IVPB PRN (17:18)
[2019-03-10] MEDS ORDERED: HYDROmorphone HCl 2 MG/ML VIAL IVPUSH ONE (18:52)
[2019-03-10] MEDS: HYDROmorphone HCl 2 MG/ML VIAL IVPUSH PRN (22:49)
[2019-03-11] MEDS ORDERED: PIPERACILLIN/TAZOBACTAM 3.375 GM VIAL IVPB ONE ×3 (01:13→17:43)
[2019-03-11] MEDS ORDERED: DEXTROSE 5%-WATER - 50 ML IVPB ONE ×3 (01:13→17:43)
[2019-03-11] MEDS: PIPERACILLIN/TAZOB 3.375 GM 3.375 GM in DEXTROSE 5%-WATER - 50 ML IVPB SCH ×3 (01:16→17:45)
[2019-03-11] MEDS: HYDROmorphone HCl 2 MG/ML VIAL IVPUSH PRN ×3 (04:48→13:50)
[2019-03-11 05:57] LABS: BASO % 0.3 % (0-2.0); EOS % 1.4 % (0-4.5); LYMPH % 8.8 % (8-40); MCH 25.6 pg (25.7-33.7); MEAN CELL VOLUME 79.9 fl (80-96); MEAN PLT VOLUME 7.5 fl (7.5-11.1); MONO % 1.8 % (3.8-10.2); NEUT % 87.7 % (42.8-82.8); PLATELET COUNT 237 K/MM3 (134-434); RBC 3.14 M/mm3 (3.60-5.2); RDW 20.4 % (11.6-15.6); WHITE BLOOD COUNT 7.7 K/mm3 (4.0-10.0)
[2019-03-11] MEDS ORDERED: LORazepam 2 MG/ML SDV VIAL IVPUSH ONE (06:00)
[2019-03-11] MEDS ORDERED: LACTATED RINGERS SOLUTION 1,000 ML/1,000 ML INFUS.BAG IV STA (06:20)
[2019-03-11 06:37] LABS: ALBUMIN 1.7 g/dl (3.4-5.0); BILIRUBIN,TOTAL 0.5 mg/dL (0.2-1); BLOOD UREA NITROGEN 17.2 mg/dL (7-18); CALCIUM 8.3 mg/dL (8.5-10.1); CREATININE 0.8 mg/dL (0.55-1.3); MAGNESIUM 2.3 mg/dL (1.8-2.4); PHOSPHOROUS 4.2 mg/dL (2.5-4.9); POTASSIUM 3.4 mmol/L (3.5-5.1); TOT PROT 4.3 g/dl (6.4-8.2)
[2019-03-11] MEDS ORDERED: POTASSIUM CHLORIDE 20 MEQ PREMIX IVPB 100 ML IVPB ONE (07:21)
[2019-03-11] MEDS ORDERED: HEPARIN NA (PORCINE) 5,000 UNITS/ML 1ML VIAL IVPUSH PRN ×2 (07:24)
[2019-03-11] MEDS ORDERED: GLYCERIN 1 RECTAL SUPPOSITORY, ADULT PR ONE (07:41)
[2019-03-11] MEDS: INSULIN SLIDING SCALE (NOVOLOG) 1 VIAL SQ SCH ×4 (07:47→21:52)
[2019-03-11] MEDS: KCL 10 MEQ IVPB 10 MEQ/100 ML INFUS.BAG IVPB SCH ×2 (07:47→09:40)
[2019-03-11] MEDS ORDERED: HEPARIN - 25,000 UNIT in SODIUM CHLORIDE 495 ML IV SCH (08:00)
[2019-03-11] MEDS ORDERED: BISACODYL 10 MG SUPP.RECT RC ONE (08:15)
--- NOTE | 2019-03-11 08:16 | PN ---
Progress Note, Physician Chief Complaint: patient lethargic moaning in bed History of Present Illness: 48 year-old female with a PMH significant for Type I IDDM, frequent admissions for DKA, HTN, HLD, CVA with left-sided weakness. Recent hospitalization at [facility] September 2018 for SBO. Patient also states she had open heart surgery at [facility] for "a clot in my heart" at or about the same time as surgery for the SBO . Patient states she was on her way for a checkup with Dr. Chaudhary when she developed sharp abdominal pain so she came to the ED. Patient has not had BM or passed flatus since onset of pain Last BM was day before yesterday. NGT placed in ED > 1000cc output greenish/brown fluid. - Current Medication List Current Medications: Active Medications Acetaminophen (Ofirmev Injection -) 1,000 mg IVPB Q6H PRN PRN Reason: PAIN LEVEL 1-5 Last Admin: 03/10/19 17:18 Dose: 1,000 mg Dextrose (D50w (Vial) -) 25 gm IVPUSH PRN PRN PRN Reason: HYPOGLYCEMIA Heparin Sodium (Porcine) (Heparin -) 1,000 unit IVPUSH PRN PRN PRN Reason: Heparin Heparin Sodium (Porcine) (Heparin -) 5,000 unit IVPUSH PRN PRN PRN Reason: Heparin Hydromorphone HCl (Dilaudid Vial -) 1 mg IVPUSH Q4H PRN PRN Reason: PAIN LEVEL 6-10 Last Admin: 03/11/19 04:48 Dose: 1 mg Piperacillin Sod/Tazobactam (Sod 3.375 gm/ Dextrose) 50 mls @ 100 mls/hr IVPB Q8H-IV [facility]; Protocol Last Admin: 03/11/19 01:16 Dose: 100 mls/hr Dextrose/Lactated Ringer's (D5-Lr -) 1,000 mls @ 100 mls/hr IV ASDIR [facility] Last Admin: 03/10/19 17:21 Dose: 100 mls/hr Heparin Sodium (Porcine) 25, (000 unit/ Sodium Chloride) 500 mls @ 16 mls/hr IV TITR [facility]; Protocol Potassium Chloride (Potassium Chloride 10 Meq Premix Ivpb -) 10 meq in 100 mls @ 100 mls/hr IVPB Q1H [facility] Stop: 03/11/19 09:44 Last Admin: 03/11/19 07:47 Dose: 100 mls/hr Insulin Aspart (Novolog Vial Sliding Scale -) 1 vial SQ ACHS [facility]; Protocol Last Admin: 03/11/19 07:47 Dose: Not Given - Objective Vital Signs: Vital Signs Temperature 98.5 F 03/10/19 18:18 Pulse Rate 119 H 03/11/19 08:00 Respiratory Rate 27 H 03/11/19 08:00 Blood Pressure 126/74 03/11/19 08:00 O2 Sat by Pulse Oximetry (%) 95 03/10/19 21:00 Constitutional: Yes: Mild Distress, Thin Eyes: Yes: WNL, Conjunctiva Clear, EOM Intact HENT: Yes: WNL, Atraumatic, Normocephalic Neck: Yes: WNL, Supple, Trachea Midline Cardiovascular: Yes: Regular Rate and Rhythm, Tachycardia Respiratory: Yes: Diminished (at bases), On Nasal O2 Gastrointestinal: Yes: Soft, Hypoactive Bowel Sounds, Tenderness (diffuse), Other (NGT to right nares with biliuos drainage LIWS) ...Rectal Exam: Yes: Deferred Genitourinary: Yes: Incontinence Breast(s): Yes: WNL Musculoskeletal: Yes: Muscle Weakness (generalized) Edema: Yes Edema: LLE: 1+, RLE: 1+ Peripheral Pulses: Left Radial: 2+, Right Radial: 2+, Left Doralis Pedis: 2+, Right Dorsalis Pedis: 2+, Left Femoral: 2+, Right Femoral: 2+ Integumentary: Yes: WNL Neurological: Yes: Lethargy, Weakness, Other (responsive to verbal stimuli) Labs: CBC, BMP 03/11/19 05:10 03/11/19 05:10 Problem List - Problems (1) HLD (hyperlipidemia) Assessment/Plan: restart statin when taking PO Code(s): E78.5 - HYPERLIPIDEMIA, UNSPECIFIED (2) Left-sided weakness Assessment/Plan: PT eval OOB when no longer requiring ICU monitoring Code(s): R53.1 - WEAKNESS (3) History of open heart surgery Code(s): Z98.890 - OTHER SPECIFIED POSTPROCEDURAL STATES (4) Acute Crohn's disease Assessment/Plan: history of chrons followed at [facility], was suppose to start infliximab but never followed through start of solumedrol 40mg IV GI consultation resquested PPI Code(s): K50.90 - CROHN'S DISEASE, UNSPECIFIED, WITHOUT COMPLICATIONS (5) Gastroparesis Code(s): K31.84 - GASTROPARESIS (6) Abdominal pain Assessment/Plan: ofrimev for pain general surgery following NGT to LIWS for decompression zofran/reglan dulcolox for large fecal matter seen on CT serial AXR Code(s): R10.9 - UNSPECIFIED ABDOMINAL PAIN Qualifiers: Abdominal location: generalized Qualified Code(s): R10.84 - Generalized abdominal pain (7) Small bowel obstruction Assessment/Plan: questionable evolving SBO GI/Gen surgery following Code(s): K56.609 - UNSP INTESTNL OBST, UNSP TO PARTIAL VERSUS COMPLETE OBST (8) Cerebrovascular accident (CVA) Assessment/Plan: left sided weakness PT to follow Code(s): I63.9 - CEREBRAL INFARCTION, UNSPECIFIED Qualifiers: CVA mechanism: unspecified Qualified Code(s): I63.9 - Cerebral infarction, unspecified (9) Chronic pain Code(s): G89.29 - OTHER CHRONIC PAIN Qualifiers: Chronic pain type: chronic pain syndrome Qualified Code(s): G89.4 - Chronic pain syndrome (10) Prophylactic measure Assessment/Plan: FEN NPO with NGT monitor electrolytes IVF, fluid resusitation in progress DVT heparin sq Dispo requres ICU care full code discharge planning Code(s): Z29.9 - ENCOUNTER FOR PROPHYLACTIC MEASURES, UNSPECIFIED (11) Diabetes Assessment/Plan: BGM AC/HS with novolog sliding scale BS may increase with steroids, careful glycemic control with multiple episodes of DKA Code(s): E11.9 - TYPE 2 DIABETES MELLITUS WITHOUT COMPLICATIONS Visit type - Emergency Visit Emergency Visit: Yes ED Registration Date: 03/09/19 Care time: The patient presented to the Emergency Department on the above date and was hospitalized for further evaluation of their emergent condition. - New Patient This patient is new to me today: Yes Date on this admission: 03/12/19 - Critical Care Critical Care patient: Yes Total Critical Care Time (in minutes): 35 Critical Care Statement: The care of this patient involved high complexity decision making to prevent further life threatening deterioration of the patient 's condition and/or to evaluate & treat vital organ system(s) failure or risk of failure. - Discharge Referral Referred to [facility] No
--- NOTE | 2019-03-11 11:03 | PN ---
Physical Exam: SUBJECTIVE: Patient seen and examined at bedside this AM. Pt is diffuse abdominal pain. Pt removed her NGT and required replacement of it set to suction of greenish fluid from stomach. OBJECTIVE: Vital Signs Period Temp Pulse Resp BP Sys/Rapp Pulse Ox Last 24 Hr 98.5 F-100.0 F 105-126 12-27 82-126/55-77 95-98 GENERAL: The patient is awake, alert, and fully oriented, in moderate acute distress. Pt has a Rt IJV line in place (day 2). HEAD: Normal with no signs of trauma. ENT: NGT set to suction of green fluid. NECK: supple. LUNGS: Breath sounds equal, clear to auscultation bilaterally, no wheezes, no crackles, no accessory muscle use. HEART: Regular rate and rhythm, S1, S2 without murmur, rub or gallop. ABDOMEN: Soft, nontender, nondistended, normoactive bowel sounds, no guarding, no rebound. EXTREMITIES: 2+ pulses, warm, well-perfused, no edema. SKIN: Warm, dry, no rashes or lesions noted Laboratory Results - last 24 hr 03/10/19 03/10/19 03/10/19 07:20 11:28 12:01 WBC RBC Hgb Hct MCV MCH MCHC RDW Plt Count MPV Absolute Neuts (auto) Neutrophils % Lymphocytes % Monocytes % Eosinophils % Basophils % Nucleated RBC % ESR Sodium Potassium Chloride Carbon Dioxide Anion Gap BUN Creatinine Est GFR (CKD-EPI)AfAm Est GFR (CKD-EPI)NonAf POC Glucometer 61 182 Random Glucose Lactic Acid Calcium Phosphorus Magnesium Total Bilirubin AST ALT Alkaline Phosphatase C-Reactive Protein Total Protein Albumin Blood Type A NEGATIVE Antibody Screen Positive Antibody Identification Adig 03/10/19 03/10/19 03/10/19 13:25 14:27 16:42 WBC RBC Hgb Hct MCV MCH MCHC RDW Plt Count MPV Absolute Neuts (auto) Neutrophils % Lymphocytes % Monocytes % Eosinophils % Basophils % Nucleated RBC % ESR Sodium Potassium Chloride Carbon Dioxide Anion Gap BUN Creatinine Est GFR (CKD-EPI)AfAm Est GFR (CKD-EPI)NonAf POC Glucometer 144 100 92 Random Glucose Lactic Acid Calcium Phosphorus Magnesium Total Bilirubin AST ALT Alkaline Phosphatase C-Reactive Protein Total Protein Albumin Blood Type Antibody Screen Antibody Identification 03/10/19 03/10/19 03/10/19 17:00 20:52 21:35 WBC RBC Hgb Hct MCV MCH MCHC RDW Plt Count MPV Absolute Neuts (auto) Neutrophils % Lymphocytes % Monocytes % Eosinophils % Basophils % Nucleated RBC % ESR Sodium Potassium Chloride Carbon Dioxide Anion Gap BUN Creatinine Est GFR (CKD-EPI)AfAm Est GFR (CKD-EPI)NonAf POC Glucometer 89 Random Glucose Lactic Acid 4.7 H* 3.6 H* Calcium Phosphorus Magnesium Total Bilirubin AST ALT Alkaline Phosphatase C-Reactive Protein Total Protein Albumin Blood Type Antibody Screen Antibody Identification 03/11/19 03/11/19 03/11/19 01:30 05:10 05:10 WBC 7.7 RBC 3.14 L Hgb 8.0 L Hct 25.0 L MCV 79.9 L MCH 25.6 L MCHC 32.0 RDW 20.4 H Plt Count 237 MPV 7.5 Absolute Neuts (auto) 6.7 Neutrophils % 87.7 H D Lymphocytes % 8.8 D Monocytes % 1.8 L Eosinophils % 1.4 D Basophils % 0.3 Nucleated RBC % 0 ESR Sodium 139 Potassium 3.4 L Chloride 97 L Carbon Dioxide 33 H Anion Gap 10 BUN 17.2 Creatinine 0.8 Est GFR (CKD-EPI)AfAm 100.33 Est GFR (CKD-EPI)NonAf 86.57 POC Glucometer Random Glucose 130 H Lactic Acid 3.2 H* Calcium 8.3 L Phosphorus 4.2 Magnesium 2.3 Total Bilirubin 0.5 AST 17 ALT 11 L Alkaline Phosphatase 100 C-Reactive Protein 43.2 H Total Protein 4.3 L Albumin 1.7 L Blood Type Antibody Screen Antibody Identification 03/11/19 03/11/19 03/11/19 05:10 05:14 08:45 WBC RBC Hgb Hct MCV MCH MCHC RDW Plt Count MPV Absolute Neuts (auto) Neutrophils % Lymphocytes % Monocytes % Eosinophils % Basophils % Nucleated RBC % ESR 47 H Sodium Potassium Chloride Carbon Dioxide Anion Gap BUN Creatinine Est GFR (CKD-EPI)AfAm Est GFR (CKD-EPI)NonAf POC Glucometer 127 Random Glucose Lactic Acid 5.4 H* Calcium Phosphorus Magnesium Total Bilirubin AST ALT Alkaline Phosphatase C-Reactive Protein Total Protein Albumin Blood Type Antibody Screen Antibody Identification Active Medications Generic Name Dose Route Start Last Admin Trade Name Freq PRN Reason Stop Dose Admin Acetaminophen 1,000 mg 03/10/19 13:13 03/10/19 17:18 Ofirmev Injection - IVPB 1,000 mg Q6H PRN Administration PAIN LEVEL 1-5 Dextrose 25 gm 03/10/19 10:18 D50w (Vial) - IVPUSH PRN PRN HYPOGLYCEMIA Heparin Sodium (Porcine) 1,000 unit 03/11/19 07:24 Heparin - IVPUSH PRN PRN Heparin Heparin Sodium (Porcine) 5,000 unit 03/11/19 07:24 Heparin - IVPUSH PRN PRN Heparin Hydromorphone HCl 1 mg 03/10/19 18:52 03/11/19 09:40 Dilaudid Vial - IVPUSH 1 mg Q4H PRN Administration PAIN LEVEL 6-10 Piperacillin Sod/Tazobactam 50 mls @ 100 mls/hr 03/10/19 14:15 03/11/19 09:40 Sod 3.375 gm/ Dextrose IVPB 100 mls/hr Q8H-IV [facility] Administration Protocol Dextrose/Lactated Ringer's 1,000 mls @ 100 mls/hr 03/10/19 17:00 03/10/19 17: 21 D5-Lr - IV 100 mls/hr ASDIR [facility] Administration Heparin Sodium (Porcine) 25, 500 mls @ 16 mls/hr 03/11/19 08:00 03/11/19 09: 38 000 unit/ Sodium Chloride IV 800 unit/hr TITR [facility] 16 mls/hr Administration Protocol 800 UNIT/HR Lactated Ringer's 1,000 ml in 1,000 mls @ 125 mls/hr 03/11/19 11:00 Lactated Ringers Solution IV ASDIR [facility] Insulin Aspart 1 vial 03/10/19 07:00 03/11/19 07:47 Novolog Vial Sliding Scale - SQ Not Given ACHS [facility] Protocol ASSESSMENT/PLAN: Patient is a 48F with history of Type I IDDM, PE (on xarelto), frequent admissions for DKA, HTN, HLD, CVA with left-sided weakness, recent hospitalization at [facility] September 2018 for SBO here today with SBO. Vitals signs stable after arrival. #Neuro - Pain control with dilaudid 0.5mg PRN Q4H - Tylenol for pain/fever control #CV - No longer hypotensive, but still tachycardic and afebrile. - CVP 3, will bolus 1L, start on 100cc/hr D5LR due to hypoglycemia throughout the day - Started on heparin drip given hx of PE and not on xarelto at this time. #GI - CT shows SBO with transition point w mesenteric edema. Dr Krishnamurthy is declining surgery at this time given that she was recently operated on for an sbo. Believes it to be result of chrons flare. ESR, CRP ordered, as well as rectal suppository - NPO, ng tube set to suction for decompression. - Pending surgery reqs - Dr. Pimentel consulted- significant for organism in urine, will await culture. Continue zosyn. - Lactate found to higher on rpt of 5.4 so increased fluids to 125mL of LR. - Slightly hyperglycemic so we stopped the dextrose. #ID - On zosyn for GI abhijit coverage - IV LR 125cc #FEN - 125cc/hr LR - NPO, NGT decompression - Lytes in AM, replete PRN PPx: Heparin drip Visit type - Emergency Visit Emergency Visit: Yes ED Registration Date: 03/09/19 Care time: The patient presented to the Emergency Department on the above date and was hospitalized for further evaluation of their emergent condition. - New Patient This patient is new to me today: Yes Date on this admission: 03/11/19 - Critical Care Critical Care patient: Yes Total Critical Care Time (in minutes): 35 Critical Care Statement: The care of this patient involved high complexity decision making to prevent further life threatening deterioration of the patient 's condition and/or to evaluate & treat vital organ system(s) failure or risk of failure. - Discharge Referral Referred to [facility] Med P.C.: No
--- NOTE | 2019-03-11 11:51 | PN ---
Teaching Attending Note Name of Resident: Howie Chavis ATTENDING PHYSICIAN STATEMENT I saw and evaluated the patient. I reviewed the resident's note and discussed the case with the resident. I agree with the resident's findings and plan as documented. SUBJECTIVE: Patient seen and examined in the ICU. Sleepy but arousable. Pulled out NGT but replaced. Mild diffuse abdominal discomfort. No CP or SOB. Intake & Output 03/08/19 03/09/19 03/10/19 03/11/19 23:59 23:59 23:59 23:59 Intake Total 2950 3017 Output Total 300 100 Balance 2650 2917 Weight 130 lb 124 lb 9.014 oz Last Vital Signs Temp Pulse Resp BP Pulse Ox 99.4 F 120 H 19 100/77 98 03/11/19 10:00 03/11/19 10:00 03/11/19 10:00 03/11/19 10:00 03/11/19 10:41 Active Medications Acetaminophen (Ofirmev Injection -) 1,000 mg IVPB Q6H PRN PRN Reason: PAIN LEVEL 1-5 Last Admin: 03/10/19 17:18 Dose: 1,000 mg Dextrose (D50w (Vial) -) 25 gm IVPUSH PRN PRN PRN Reason: HYPOGLYCEMIA Heparin Sodium (Porcine) (Heparin -) 1,000 unit IVPUSH PRN PRN PRN Reason: Heparin Heparin Sodium (Porcine) (Heparin -) 5,000 unit IVPUSH PRN PRN PRN Reason: Heparin Hydromorphone HCl (Dilaudid Vial -) 1 mg IVPUSH Q4H PRN PRN Reason: PAIN LEVEL 6-10 Last Admin: 03/11/19 09:40 Dose: 1 mg Piperacillin Sod/Tazobactam (Sod 3.375 gm/ Dextrose) 50 mls @ 100 mls/hr IVPB Q8H-IV [facility]; Protocol Last Admin: 03/11/19 09:40 Dose: 100 mls/hr Dextrose/Lactated Ringer's (D5-Lr -) 1,000 mls @ 100 mls/hr IV ASDIR [facility] Last Admin: 03/10/19 17:21 Dose: 100 mls/hr Heparin Sodium (Porcine) 25, (000 unit/ Sodium Chloride) 500 mls @ 16 mls/hr IV TITR [facility]; Protocol Last Admin: 03/11/19 09:38 Dose: 800 unit/hr, 16 mls/hr Lactated Ringer's (Lactated Ringers Solution) 1,000 ml in 1,000 mls @ 125 mls/ hr IV ASDIR [facility] Insulin Aspart (Novolog Vial Sliding Scale -) 1 vial SQ ACHS [facility]; Protocol Last Admin: 03/11/19 07:47 Dose: Not Given GENERAL: Sleepy but arousable, NAD. HEAD: Normal with no signs of trauma. EYES: Pupils equal, round and reactive to light, extraocular movements intact, sclera anicteric, conjunctiva clear. EARS, NOSE, THROAT: Ears normal, nares patent, oropharynx clear without exudates. Moist mucous membranes. NECK: Normal range of motion, supple without lymphadenopathy, JVD, or masses. LUNGS: Breath sounds equal, clear to auscultation bilaterally. No wheezes, and no crackles. No accessory muscle use. HEART: Tachycardic, normal S1 and S2 without murmur, rub or gallop. ABDOMEN: Mild diffuse tenderness, (+) BS. No guarding, no rebound. MUSCULOSKELETAL: Normal range of motion at all joints. No bony deformities or tenderness. No CVA tenderness. UPPER EXTREMITIES: 2+ pulses, warm, well-perfused. No cyanosis. No clubbing. Cap refill <2 seconds. No peripheral edema. LOWER EXTREMITIES: 2+ pulses, warm, well-perfused. No calf tenderness. No peripheral edema. NEUROLOGICAL: Sleepy but arousable, Non-focal SKIN: Warm, dry, normal turgor, no rashes or lesions noted. Laboratory Results - last 24 hr 03/10/19 03/10/19 03/10/19 12:01 13:25 14:27 WBC RBC Hgb Hct MCV MCH MCHC RDW Plt Count MPV Absolute Neuts (auto) Neutrophils % Lymphocytes % Monocytes % Eosinophils % Basophils % Nucleated RBC % ESR Sodium Potassium Chloride Carbon Dioxide Anion Gap BUN Creatinine Est GFR (CKD-EPI)AfAm Est GFR (CKD-EPI)NonAf POC Glucometer 182 144 100 Random Glucose Lactic Acid Calcium Phosphorus Magnesium Total Bilirubin AST ALT Alkaline Phosphatase C-Reactive Protein Total Protein Albumin 03/10/19 03/10/19 03/10/19 16:42 17:00 20:52 WBC RBC Hgb Hct MCV MCH MCHC RDW Plt Count MPV Absolute Neuts (auto) Neutrophils % Lymphocytes % Monocytes % Eosinophils % Basophils % Nucleated RBC % ESR Sodium Potassium Chloride Carbon Dioxide Anion Gap BUN Creatinine Est GFR (CKD-EPI)AfAm Est GFR (CKD-EPI)NonAf POC Glucometer 92 89 Random Glucose Lactic Acid 4.7 H* Calcium Phosphorus Magnesium Total Bilirubin AST ALT Alkaline Phosphatase C-Reactive Protein Total Protein Albumin 03/10/19 03/11/19 03/11/19 21:35 01:30 05:10 WBC 7.7 RBC 3.14 L Hgb 8.0 L Hct 25.0 L MCV 79.9 L MCH 25.6 L MCHC 32.0 RDW 20.4 H Plt Count 237 MPV 7.5 Absolute Neuts (auto) 6.7 Neutrophils % 87.7 H D Lymphocytes % 8.8 D Monocytes % 1.8 L Eosinophils % 1.4 D Basophils % 0.3 Nucleated RBC % 0 ESR Sodium Potassium Chloride Carbon Dioxide Anion Gap BUN Creatinine Est GFR (CKD-EPI)AfAm Est GFR (CKD-EPI)NonAf POC Glucometer Random Glucose Lactic Acid 3.6 H* 3.2 H* Calcium Phosphorus Magnesium Total Bilirubin AST ALT Alkaline Phosphatase C-Reactive Protein Total Protein Albumin 03/11/19 03/11/19 03/11/19 05:10 05:10 05:14 WBC RBC Hgb Hct MCV MCH MCHC RDW Plt Count MPV Absolute Neuts (auto) Neutrophils % Lymphocytes % Monocytes % Eosinophils % Basophils % Nucleated RBC % ESR 47 H Sodium 139 Potassium 3.4 L Chloride 97 L Carbon Dioxide 33 H Anion Gap 10 BUN 17.2 Creatinine 0.8 Est GFR (CKD-EPI)AfAm 100.33 Est GFR (CKD-EPI)NonAf 86.57 POC Glucometer 127 Random Glucose 130 H Lactic Acid Calcium 8.3 L Phosphorus 4.2 Magnesium 2.3 Total Bilirubin 0.5 AST 17 ALT 11 L Alkaline Phosphatase 100 C-Reactive Protein 43.2 H Total Protein 4.3 L Albumin 1.7 L 03/11/19 08:45 WBC RBC Hgb Hct MCV MCH MCHC RDW Plt Count MPV Absolute Neuts (auto) Neutrophils % Lymphocytes % Monocytes % Eosinophils % Basophils % Nucleated RBC % ESR Sodium Potassium Chloride Carbon Dioxide Anion Gap BUN Creatinine Est GFR (CKD-EPI)AfAm Est GFR (CKD-EPI)NonAf POC Glucometer Random Glucose Lactic Acid 5.4 H* Calcium Phosphorus Magnesium Total Bilirubin AST ALT Alkaline Phosphatase C-Reactive Protein Total Protein Albumin ASSESSMENT/PLAN: SBO versus flair of inflammatory bowel disease R/O GI source of infection Type I IDDM, frequent admissions for DKA PE on Xarelto HTN HLD CVA with mild left-sided weakness NGT decompression NPO for now GI evaluation IVF AC D/W surgery: no surgical intervention at this time Noted empiric Zosyn ID evaluation for ABX Floor Dr Otero
[2019-03-11] MEDS: ACETAMINOPHEN 1000 MG/100 ML VIAL (NON FORMULARY) IVPB PRN (11:58)
[2019-03-11] MEDS: LACTATED RINGERS SOLUTION 1,000 ML/1,000 ML INFUS.BAG IV SCH (12:08)
--- NOTE | 2019-03-11 13:07 | CON.ID ---
Consult Consult Specialty:: infectious diseases Referred by:: hospitalist Reason for Consultation:: sbo - History of Present Illness Chief Complaint: abd pain,dka History of Present Illness: 48yo female PMH HTN, CVA (left sided hemiparesis), HLD, IDDM, DKA resulting in multiple admissions, dysphagia, gastroparesis, esophageal stricture (EGD 02/14), c/diff (10/2018), SBO September 2018 ([facility] pt report) presented to [place] ED on the afternoon of 12/21 with complaints of N/V/D/ abd pain intermittently for years. Associated symptoms include malaise, dizziness, low grade fever, chills, anorexia, urinary frequency and dysuria. Due to the severity of her symptoms patient known to me and with multiple of episodes of dka now with sbo seen by surgery and ng tube placed currently patient weak patient started on zosyn - History Source History Provided By: Patient, Medical Record Limitations to Obtaining History: Poor Historian - Past Medical History APPLICATION SYSTEMS ARCHITECT: Yes: CVA (right MCA), Migraine Cardio/Vascular: Yes: Hyperlipdemia Gastrointestinal: Yes: Other (Gastroparesis) ...LMP: 04/14/13 Musculoskeletal: Yes: Chronic low back pain Endocrine: Yes: Diabetes Mellitus Additional Medical History: dka in the past - Past Surgical History Past Surgical History: Yes: Cholecystectomy - Alcohol/Substance Use Hx Alcohol Use: No History of Substance Use: reports: None - Smoking History Smoking history: Current every day smoker Have you smoked in the past 12 months: Yes Aproximately how many cigarettes per day: 10 - Social History ADL: Independent Occupation: Unemployed History of Recent Travel: No Home Medications - Allergies Allergies/Adverse Reactions: Allergies Allergy/AdvReac Type Severity Reaction Status Date / Time No Known Allergies Allergy Verified 03/09/19 16:48 - Home Medications Home Medications: Ambulatory Orders Aspirin 81 mg PO DAILY #30 tab.chew 08/13/18 Atorvastatin Ca [Lipitor] 40 mg PO HS #30 tablet 08/13/18 Gabapentin 300 mg PO BID 12/23/18 Quetiapine Fumarate [Seroquel -] 25 mg PO BID 12/23/18 Insulin Sliding Scale [Novolog Vial Sliding Scale -] 1 vial SQ ACHS #600 units 12/25/18 Rivaroxaban [Xarelto] 15 mg PO BID #60 tablet 12/25/18 predniSONE [Deltasone -] 40 mg PO DAILY #30 tablet 12/25/18 traMADol HCL [Ultram -] 100 mg PO Q8H PRN #90 tablet MDD 6 12/25/18 Insulin Detemir [Levemir Flextouch] 12 unit SQ BID 01/26/19 Amoxicillin/Potassium Clav [Augmentin 875-125 Tablet] 1 each PO BID 03/07/19 HYDROmorphone [Dilaudid -] 4 mg PO Q6H PRN 03/07/19 Family Disease History - Family Disease History Family Disease History: Heart Disease: Father (cad), Other: Mother (Alive (70) well) Review of Systems - Review of Systems Constitutional: reports: No Symptoms Eyes: reports: No Symptoms HENT: reports: No Symptoms Neck: reports: No Symptoms Cardiovascular: reports: No Symptoms Respiratory: reports: No Symptoms Gastrointestinal: reports: Abdominal Pain Genitourinary: reports: No Symptoms Musculoskeletal: reports: No Symptoms Integumentary: reports: No Symptoms Neurological: reports: No Symptoms Endocrine: reports: No Symptoms Hematology/Lymphatic: reports: No Symptoms Psychiatric: reports: No Symptoms Physical Exam Vital Signs: Vital Signs Temperature 99.4 F 03/11/19 10:00 Pulse Rate 120 H 03/11/19 10:00 Respiratory Rate 03/11/19 10:00 Blood Pressure 100/77 03/11/19 10:00 O2 Sat by Pulse Oximetry (%) 98 03/11/19 10:41 Constitutional: Yes: Calm, Mild Distress Cardiovascular: Yes: Regular Rate and Rhythm Respiratory: Yes: Regular, CTA Bilaterally Gastrointestinal: Yes: Hypoactive Bowel Sounds, Other (ng tube in place) Musculoskeletal: Yes: WNL Extremities: Yes: WNL Neurological: Yes: Alert, Oriented Psychiatric: Yes: Alert, Oriented Labs: CBC, BMP 03/11/19 05:10 03/11/19 05:10 Imaging - Results Chest X-ray: Report Reviewed, Image Reviewed Cat Scan: Report Reviewed, Image Reviewed Assessment/Plan SBO versus flair of inflammatory bowel disease R/O GI source of infection Type I IDDM, PE HTN HLD CVA with mild left-sided weakness patient also has organism in the urine plan continue zosyn will see how patient does leukocytosis has resolved conitnue ng decompression rest as per icu cc 40 min
--- NOTE | 2019-03-11 13:19 | PN ---
Physical Exam: SUBJECTIVE: Patient seen and examined at bedside this AM. Pt is diffuse abdominal pain. Pt removed her NGT and required replacement of it set to suction of greenish fluid from stomach. OBJECTIVE: Vital Signs Period Temp Pulse Resp BP Sys/Rapp Pulse Ox Last 24 Hr 98.5 F-100.0 F 105-126 12-27 82-126/55-77 95-98 GENERAL: The patient is awake, alert, and fully oriented, in moderate acute distress. HEAD: Normal with no signs of trauma. ENT: NGT set to suction of green fluid. NECK: supple. LUNGS: Breath sounds equal, clear to auscultation bilaterally, no wheezes, no crackles, no accessory muscle use. HEART: Regular rate and rhythm, S1, S2 without murmur, rub or gallop. ABDOMEN: Soft, nontender, nondistended, normoactive bowel sounds, no guarding, no rebound. EXTREMITIES: 2+ pulses, warm, well-perfused, no edema. SKIN: Warm, dry, no rashes or lesions noted Laboratory Results - last 24 hr 03/10/19 03/10/19 03/10/19 13:25 14:27 16:42 WBC RBC Hgb Hct MCV MCH MCHC RDW Plt Count MPV Absolute Neuts (auto) Neutrophils % Lymphocytes % Monocytes % Eosinophils % Basophils % Nucleated RBC % ESR Sodium Potassium Chloride Carbon Dioxide Anion Gap BUN Creatinine Est GFR (CKD-EPI)AfAm Est GFR (CKD-EPI)NonAf POC Glucometer 144 100 92 Random Glucose Lactic Acid Calcium Phosphorus Magnesium Total Bilirubin AST ALT Alkaline Phosphatase C-Reactive Protein Total Protein Albumin 03/10/19 03/10/19 03/10/19 17:00 20:52 21:35 WBC RBC Hgb Hct MCV MCH MCHC RDW Plt Count MPV Absolute Neuts (auto) Neutrophils % Lymphocytes % Monocytes % Eosinophils % Basophils % Nucleated RBC % ESR Sodium Potassium Chloride Carbon Dioxide Anion Gap BUN Creatinine Est GFR (CKD-EPI)AfAm Est GFR (CKD-EPI)NonAf POC Glucometer 89 Random Glucose Lactic Acid 4.7 H* 3.6 H* Calcium Phosphorus Magnesium Total Bilirubin AST ALT Alkaline Phosphatase C-Reactive Protein Total Protein Albumin 03/11/19 03/11/19 03/11/19 01:30 05:10 05:10 WBC 7.7 RBC 3.14 L Hgb 8.0 L Hct 25.0 L MCV 79.9 L MCH 25.6 L MCHC 32.0 RDW 20.4 H Plt Count 237 MPV 7.5 Absolute Neuts (auto) 6.7 Neutrophils % 87.7 H D Lymphocytes % 8.8 D Monocytes % 1.8 L Eosinophils % 1.4 D Basophils % 0.3 Nucleated RBC % 0 ESR Sodium 139 Potassium 3.4 L Chloride 97 L Carbon Dioxide 33 H Anion Gap 10 BUN 17.2 Creatinine 0.8 Est GFR (CKD-EPI)AfAm 100.33 Est GFR (CKD-EPI)NonAf 86.57 POC Glucometer Random Glucose 130 H Lactic Acid 3.2 H* Calcium 8.3 L Phosphorus 4.2 Magnesium 2.3 Total Bilirubin 0.5 AST 17 ALT 11 L Alkaline Phosphatase 100 C-Reactive Protein 43.2 H Total Protein 4.3 L Albumin 1.7 L 03/11/19 03/11/19 03/11/19 05:10 05:14 08:45 WBC RBC Hgb Hct MCV MCH MCHC RDW Plt Count MPV Absolute Neuts (auto) Neutrophils % Lymphocytes % Monocytes % Eosinophils % Basophils % Nucleated RBC % ESR 47 H Sodium Potassium Chloride Carbon Dioxide Anion Gap BUN Creatinine Est GFR (CKD-EPI)AfAm Est GFR (CKD-EPI)NonAf POC Glucometer 127 Random Glucose Lactic Acid 5.4 H* Calcium Phosphorus Magnesium Total Bilirubin AST ALT Alkaline Phosphatase C-Reactive Protein Total Protein Albumin 03/11/19 12:03 WBC RBC Hgb Hct MCV MCH MCHC RDW Plt Count MPV Absolute Neuts (auto) Neutrophils % Lymphocytes % Monocytes % Eosinophils % Basophils % Nucleated RBC % ESR Sodium Potassium Chloride Carbon Dioxide Anion Gap BUN Creatinine Est GFR (CKD-EPI)AfAm Est GFR (CKD-EPI)NonAf POC Glucometer 207 Random Glucose Lactic Acid Calcium Phosphorus Magnesium Total Bilirubin AST ALT Alkaline Phosphatase C-Reactive Protein Total Protein Albumin Active Medications Generic Name Dose Route Start Last Admin Trade Name Freq PRN Reason Stop Dose Admin Acetaminophen 1,000 mg 03/10/19 13:13 03/11/19 11:58 Ofirmev Injection - IVPB 1,000 mg Q6H PRN Administration PAIN LEVEL 1-5 Heparin Sodium (Porcine) 1,000 unit 03/11/19 07:24 Heparin - IVPUSH PRN PRN Heparin Heparin Sodium (Porcine) 5,000 unit 03/11/19 07:24 Heparin - IVPUSH PRN PRN Heparin Hydromorphone HCl 1 mg 03/10/19 18:52 03/11/19 09:40 Dilaudid Vial - IVPUSH 1 mg Q4H PRN Administration PAIN LEVEL 6-10 Piperacillin Sod/Tazobactam 50 mls @ 100 mls/hr 03/10/19 14:15 03/11/19 09:40 Sod 3.375 gm/ Dextrose IVPB 100 mls/hr Q8H-IV [facility] Administration Protocol Heparin Sodium (Porcine) 25, 500 mls @ 16 mls/hr 03/11/19 08:00 03/11/19 09: 38 000 unit/ Sodium Chloride IV 800 unit/hr TITR [facility] 16 mls/hr Administration Protocol 800 UNIT/HR Lactated Ringer's 1,000 ml in 1,000 mls @ 125 mls/hr 03/11/19 11:00 03/11/19 12:08 Lactated Ringers Solution IV 125 mls/hr ASDIR [facility] Administration Insulin Aspart 1 vial 03/10/19 07:00 03/11/19 12:04 Novolog Vial Sliding Scale - SQ 4 units ACHS [facility] Administration Protocol Methylprednisolone Sodium Succinate 40 mg 03/11/19 12:30 Solu-Medrol - IVPUSH DAILY [facility] Prednisone 40 mg 03/12/19 10:00 Deltasone - PO DAILY [facility] ASSESSMENT/PLAN: Significant for organism in urine, will await culture. Continue zosyn.
[2019-03-11] MEDS: methylPREDNISolone NA SUCC 40 MG/1 ML VIAL IVPUSH SCH (13:37)
--- NOTE | 2019-03-11 16:17 | PN ---
Progress Note, Physician Chief Complaint: Abdominal Pain History of Present Illness: 48yo female PMH HTN, CVA (left sided hemiparesis), HLD, IDDM, DKA resulting in multiple admissions, dysphagia, gastroparesis, esophageal stricture (EGD 02/14), c/diff (10/2018), SBO September 2018 (s/p SB resection at [facility] as per pt report) presented to [place] ED on the afternoon of 12/21 with complaints of N/V/D/ abd pain intermittently for years. She has had persistent pain but has had improved hemodynamics after IVF resuscitation. - Current Medication List Current Medications: Active Medications Acetaminophen (Ofirmev Injection -) 1,000 mg IVPB Q6H PRN PRN Reason: PAIN LEVEL 1-5 Last Admin: 03/11/19 11:58 Dose: 1,000 mg Hydromorphone HCl (Dilaudid Vial -) 1 mg IVPUSH Q4H PRN PRN Reason: PAIN LEVEL 6-10 Last Admin: 03/11/19 13:50 Dose: 1 mg Piperacillin Sod/Tazobactam (Sod 3.375 gm/ Dextrose) 50 mls @ 100 mls/hr IVPB Q8H-IV [facility]; Protocol Last Admin: 03/11/19 09:40 Dose: 100 mls/hr Heparin Sodium (Porcine) 25, (000 unit/ Sodium Chloride) 500 mls @ 16 mls/hr IV TITR [facility]; Protocol Last Admin: 03/11/19 09:38 Dose: 800 unit/hr, 16 mls/hr Lactated Ringer's (Lactated Ringers Solution) 1,000 ml in 1,000 mls @ 125 mls/ hr IV ASDIR [facility] Last Admin: 03/11/19 12:08 Dose: 125 mls/hr Insulin Aspart (Novolog Vial Sliding Scale -) 1 vial SQ ACHS [facility]; Protocol Last Admin: 03/11/19 12:04 Dose: 4 units Methylprednisolone Sodium Succinate (Solu-Medrol -) 40 mg IVPUSH DAILY [facility] Last Admin: 03/11/19 13:37 Dose: 40 mg - Objective Vital Signs: Vital Signs Temperature 97.9 F 03/11/19 14:00 Pulse Rate 119 H 03/11/19 16:00 Respiratory Rate 18 03/11/19 16:00 Blood Pressure 103/70 03/11/19 16:00 O2 Sat by Pulse Oximetry (%) 98 03/11/19 10:41 Vital Signs Period Temp Pulse Resp BP Sys/Rapp Pulse Ox Last 24 Hr 97.9 F-99.4 F 105-122 12-27 82-126/58-77 95-98 Intake & Output 03/11/19 03/11/19 03/11/19 07:59 15:59 23:59 Intake Total 3017 Output Total 100 2 Balance 2917 -2 Intake: IV 2967 LACTATED RINGERS SOLUTION 980 1,000 ml In 1,000 ml @ 1000 mls/hr IV ONCE STA Rx#:[id number] LACTATED RINGERS SOLUTION 1987 1,000 ml In 1,000 ml @ 1000 mls/hr IV ONCE STA Rx#:[id number] IVPB 50 Output: Gastric Drainage 100 Urine 0 2 Void 0 2 Other: Voiding Method Diaper Bowel Movement No No Constitutional: Yes: Well Nourished, No Distress, Calm Eyes: Yes: Conjunctiva Clear, EOM Intact HENT: Yes: Atraumatic, Normocephalic Neck: Yes: Supple, Trachea Midline Cardiovascular: Yes: Regular Rate and Rhythm, S1, S2 Respiratory: Yes: Regular, CTA Bilaterally Gastrointestinal: Yes: Normal Bowel Sounds, Soft, Tenderness (diffuse,), Tenderness, Rebound ...Rectal Exam: Yes: Deferred Genitourinary: No: CVA Tenderness - Left, CVA Tenderness - Right Breast(s): No: Mass, Skin Changes Extremities: No: Cool, Cyanosis Edema: No Peripheral Pulses WNL: Yes Peripheral Pulses: Left Radial: 2+, Right Radial: 2+, Left Doralis Pedis: 2+, Right Dorsalis Pedis: 2+, Left Femoral: 2+, Right Femoral: 2+ Integumentary: No: Rash, Skin Tear Neurological: Yes: Alert, Oriented Psychiatric: Yes: Alert, Oriented Labs: CBC, BMP 03/11/19 05:10 03/11/19 05:10 Problem List - Problems (1) Small bowel obstruction Assessment/Plan: 48yo female with MMP including SBO, chronic constipation, Gastroparesis and crohns disease presenting with Abdominal pain. She has several possible explanations for this pain. She does not currently have peritonitis. No acute surgical intervention at this time. Monitored Setting NPO and IVF hydration NGT decompression (intermittent suction) suppositories and Chrons flare management GI evaluation Serial abdominal exams will follow periperally This patient is critically ill. Time spent reviewing chart, examining patient, talking with providers and/or family and documentation is 45 minutes. Code(s): K56.609 - UNSP INTESTNL OBST, UNSP TO PARTIAL VERSUS COMPLETE OBST (2) Abdominal pain Code(s): R10.9 - UNSPECIFIED ABDOMINAL PAIN Qualifiers: Abdominal location: generalized Qualified Code(s): R10.84 - Generalized abdominal pain (3) Crohn's disease Code(s): K50.90 - CROHN'S DISEASE, UNSPECIFIED, WITHOUT COMPLICATIONS (4) DKA (diabetic ketoacidoses) Code(s): E13.10 - OTH DIABETES MELLITUS WITH KETOACIDOSIS WITHOUT COMA Qualifiers: Diabetes mellitus type: type 1 Diabetes mellitus complication detail: without coma Qualified Code(s): E10.10 - Type 1 diabetes mellitus with ketoacidosis without coma (5) Nausea & vomiting Code(s): R11.2 - NAUSEA WITH VOMITING, UNSPECIFIED (6) Cerebrovascular accident (CVA) Code(s): I63.9 - CEREBRAL INFARCTION, UNSPECIFIED Qualifiers: CVA mechanism: unspecified Qualified Code(s): I63.9 - Cerebral infarction, unspecified
[2019-03-11] MEDS ORDERED: ONDANSETRON 4 MG/2 ML VIAL ONE (20:32)
[2019-03-11] MEDS: ONDANSETRON 4 MG/2 ML VIAL IVPUSH PRN (20:33)
[2019-03-11] MEDS ORDERED: PANTOPRAZOLE SODIUM 80 MG in SODIUM CHLORIDE 100 ML IVPB SCH (20:45)
[2019-03-11] MEDS ORDERED: PANTOPRAZOLE SODIUM 40 MG VIAL IVPUSH ONE ×2 (20:47→21:00)
[2019-03-11 21:13] LABS: BASO % 0.3 % (0-2.0); EOS % 0.5 % (0-4.5); HEMATOCRIT 24.4 % (32.4-45.2); HEMOGLOBIN 7.5 GM/dL (10.7-15.3); LYMPH % 13.1 % (8-40); MCH 24.6 pg (25.7-33.7); MCHC 30.7 g/dl (32.0-36.0); MEAN CELL VOLUME 80.1 fl (80-96); MEAN PLT VOLUME 8.1 fl (7.5-11.1); MONO % 3.8 % (3.8-10.2); NEUT % 82.3 % (42.8-82.8); PLATELET COUNT 260 K/MM3 (134-434); RBC 3.05 M/mm3 (3.60-5.2); RDW 20.4 % (11.6-15.6); WHITE BLOOD COUNT 2.5 K/mm3 (4.0-10.0)
[2019-03-11] MEDS ORDERED: SODIUM CHLORIDE 0.9% 500 ML INFUS.BAG IV ONE (21:17)
--- NOTE | 2019-03-11 21:28 | PN ---
Progress Note (short form) - Note Progress Note: pt had coffee ground emesis despite NGT Tachycardic, normotensive Hgb 10.5 > 8 > 7.5 Given: Protonix IVPUSH and drip Zofran 1U PRBC CBC Surgery Dr. Krishnamurthy contacted, recommended: - ABD XR - 1U PRBC - GI c/s - PPI - Stop Heparin and NSAIDS - Serial abd exams eval for peritonitis - Intermittent suction as NGT not sump GI Dr. Gupat contacted; recommended: - Not acutely bleeding - Protonix drip - Zofran - Low intermittent sump suction - 250cc bolus
[2019-03-11] MEDS: PANTOPRAZOLE SODIUM 80 MG in SODIUM CHLORIDE 100 ML IVPB SCH (21:51)
[2019-03-12] MEDS ORDERED: PIPERACILLIN/TAZOBACTAM 3.375 GM VIAL IVPB ONE ×4 (01:45→22:31)
[2019-03-12] MEDS ORDERED: DEXTROSE 5%-WATER - 50 ML IVPB ONE ×4 (01:45→22:31)
[2019-03-12] MEDS: PIPERACILLIN/TAZOB 3.375 GM 3.375 GM in DEXTROSE 5%-WATER - 50 ML IVPB SCH ×4 (01:59→19:00)
[2019-03-12] MEDS: ONDANSETRON 4 MG/2 ML VIAL IVPUSH PRN (03:58)
[2019-03-12] MEDS: HYDROmorphone HCl 2 MG/ML VIAL IVPUSH PRN (04:56)
[2019-03-12] MEDS: INSULIN SLIDING SCALE (NOVOLOG) 1 VIAL SQ SCH ×4 (06:11→21:10)
--- NOTE | 2019-03-12 07:09 | PN ---
Physical Exam: SUBJECTIVE: Patient seen and examined at bedside this AM. Yesterday patient found to have coffee ground emesis and GI was consulted, recommended 250cc bolus , IV protonix gtt, to stop heparin/NSAIDS and did not believe this to be an acute bleed. Pt found to have a pneumoperitoneum on CT abdomen/pelvis and surgery was notified and will be taking pt to OR. OBJECTIVE: Vital Signs Period Temp Pulse Resp BP Sys/Rapp Pulse Ox Last 24 Hr 97.9 F-99.7 F 110-122 14-27 87-135/65-77 95-98 GENERAL: The patient is awake, alert, and fully oriented, in no acute distress. HEAD: Normal with no signs of trauma. ENT: Ears normal, nares patent, oropharynx clear without exudates, moist mucous membranes. NGT set to sump suction and maroun colored fluid being removed from stomach. NECK: supple. LUNGS: Breath sounds equal, clear to auscultation bilaterally, no wheezes, no crackles, no accessory muscle use. HEART: Regular rate and rhythm, S1, S2 without murmur, rub or gallop. ABDOMEN: diffusely tender, rigid, absent bowel sounds, increased guarding, increasing rebound tenderness. EXTREMITIES: 2+ pulses, warm, well-perfused, no edema. NEUROLOGICAL: Cranial nerves II through XII grossly intact. Normal speech, gait not observed. PSYCH: Normal mood, normal affect. SKIN: Warm, dry, normal turgor, no rashes or lesions noted Laboratory Results - last 24 hr 03/10/19 03/11/19 03/11/19 07:20 05:10 05:10 WBC RBC Hgb Hct MCV MCH MCHC RDW Plt Count MPV Absolute Neuts (auto) Neutrophils % Neutrophils % (Manual) Band Neutrophils % Lymphocytes % Lymphocytes % (Manual) Monocytes % Monocytes % (Manual) Eosinophils % Eosinophils % (Manual) Basophils % Nucleated RBC % ESR 47 H PTT (Actin FS) Sodium 139 Potassium 3.4 L Chloride 97 L Carbon Dioxide 33 H Anion Gap 10 BUN 17.2 Creatinine 0.8 Est GFR (CKD-EPI)AfAm 100.33 Est GFR (CKD-EPI)NonAf 86.57 POC Glucometer Random Glucose 130 H Lactic Acid Calcium 8.3 L Phosphorus 4.2 Magnesium 2.3 Total Bilirubin 0.5 AST 17 ALT 11 L Alkaline Phosphatase 100 C-Reactive Protein 43.2 H Total Protein 4.3 L Albumin 1.7 L Blood Type A NEGATIVE Antibody Screen Positive Antibody Identification Adig Crossmatch See Detail 03/11/19 03/11/19 03/11/19 08:45 12:03 15:45 WBC RBC Hgb Hct MCV MCH MCHC RDW Plt Count MPV Absolute Neuts (auto) Neutrophils % Neutrophils % (Manual) Band Neutrophils % Lymphocytes % Lymphocytes % (Manual) Monocytes % Monocytes % (Manual) Eosinophils % Eosinophils % (Manual) Basophils % Nucleated RBC % ESR PTT (Actin FS) 51.9 H Sodium Potassium Chloride Carbon Dioxide Anion Gap BUN Creatinine Est GFR (CKD-EPI)AfAm Est GFR (CKD-EPI)NonAf POC Glucometer 207 Random Glucose Lactic Acid 5.4 H* Calcium Phosphorus Magnesium Total Bilirubin AST ALT Alkaline Phosphatase C-Reactive Protein Total Protein Albumin Blood Type Antibody Screen Antibody Identification Crossmatch 03/11/19 03/11/19 03/11/19 16:00 17:23 21:00 WBC 2.5 L RBC 3.05 L Hgb 7.5 L Hct 24.4 L MCV 80.1 MCH 24.6 L MCHC 30.7 L RDW 20.4 H Plt Count 260 MPV 8.1 Absolute Neuts (auto) 2.1 Neutrophils % 82.3 Neutrophils % (Manual) 72.0 Band Neutrophils % 1.0 Lymphocytes % 13.1 D Lymphocytes % (Manual) 24.0 D Monocytes % 3.8 D Monocytes % (Manual) 2 L D Eosinophils % 0.5 Eosinophils % (Manual) 1.0 D Basophils % 0.3 Nucleated RBC % 0 ESR PTT (Actin FS) Sodium Potassium Chloride Carbon Dioxide Anion Gap BUN Creatinine Est GFR (CKD-EPI)AfAm Est GFR (CKD-EPI)NonAf POC Glucometer 146 Random Glucose Lactic Acid 3.8 H* Calcium Phosphorus Magnesium Total Bilirubin AST ALT Alkaline Phosphatase C-Reactive Protein Total Protein Albumin Blood Type Antibody Screen Antibody Identification Crossmatch 03/11/19 03/12/19 21:37 06:01 WBC RBC Hgb Hct MCV MCH MCHC RDW Plt Count MPV Absolute Neuts (auto) Neutrophils % Neutrophils % (Manual) Band Neutrophils % Lymphocytes % Lymphocytes % (Manual) Monocytes % Monocytes % (Manual) Eosinophils % Eosinophils % (Manual) Basophils % Nucleated RBC % ESR PTT (Actin FS) Sodium Potassium Chloride Carbon Dioxide Anion Gap BUN Creatinine Est GFR (CKD-EPI)AfAm Est GFR (CKD-EPI)NonAf POC Glucometer 220 465 Random Glucose Lactic Acid Calcium Phosphorus Magnesium Total Bilirubin AST ALT Alkaline Phosphatase C-Reactive Protein Total Protein Albumin Blood Type Antibody Screen Antibody Identification Crossmatch Active Medications Generic Name Dose Route Start Last Admin Trade Name Freq PRN Reason Stop Dose Admin Acetaminophen 1,000 mg 03/10/19 13:13 03/11/19 11:58 Ofirmev Injection - IVPB 1,000 mg Q6H PRN Administration PAIN LEVEL 1-5 Hydromorphone HCl 1 mg 03/10/19 18:52 03/12/19 04:56 Dilaudid Vial - IVPUSH 1 mg Q4H PRN Administration PAIN LEVEL 6-10 Piperacillin Sod/Tazobactam 50 mls @ 100 mls/hr 03/10/19 14:15 03/12/19 01:59 Sod 3.375 gm/ Dextrose IVPB 100 mls/hr Q8H-IV [facility] Administration Protocol Heparin Sodium (Porcine) 25, 500 mls @ 16 mls/hr 03/11/19 08:00 03/11/19 20: 47 000 unit/ Sodium Chloride IV 0 unit/hr TITR [facility] 0 mls/hr Titration Protocol 800 UNIT/HR Lactated Ringer's 1,000 ml in 1,000 mls @ 125 mls/hr 03/11/19 11:00 03/11/19 12:08 Lactated Ringers Solution IV 125 mls/hr ASDIR [facility] Administration Pantoprazole Sodium 80 mg/ 100 mls @ 10 mls/hr 03/11/19 21:30 03/11/19 21:51 Sodium Chloride IVPB 10 mls/hr Q10H [facility] Administration 8 MG/HR Insulin Aspart 1 vial 03/10/19 07:00 03/12/19 06:11 Novolog Vial Sliding Scale - SQ 12 units ACHS [facility] Administration Protocol Methylprednisolone Sodium Succinate 40 mg 03/11/19 12:30 03/11/19 13:37 Solu-Medrol - IVPUSH 40 mg DAILY [facility] Administration Ondansetron HCl 4 mg 03/11/19 20:31 03/12/19 03:58 Zofran Injection IVPUSH 4 mg Q6H PRN Administration NAUSEA AND/OR VOMITING ASSESSMENT/PLAN: Patient is a 48F with history of Type I IDDM, PE (on xarelto), frequent admissions for DKA, HTN, HLD, CVA with left-sided weakness, recent hospitalization at [facility] September 2018 for SBO here today with SBO. Vitals signs stable after arrival. #Neuro - Pain control with dilaudid 0.5mg PRN Q4H - Tylenol for pain/fever control - may be worsening pt's constipation but no choice given pt's pain. #CV-> sinus tachy - No longer hypotensive, but still tachycardic and afebrile. - sinus tachycardia on 125cc/hr LR - d/c'ed heparin drip due to coffe ground emesis and not on xarelto at this time. #GI-> Chron's flair likely and pneumoperitoneum - Abdominal XR unclearly showing Pneumoperitoneum, CT abd/pelvis showing pneumoperitoneum. - CT shows SBO with transition point w mesenteric edema. Dr Krishnamurthy is declining surgery at this time given that she was recently operated on for an sbo. Believes it to be result of chrons flare. ESR elevated at 47, CRP ordered - NPO, ng tube set to suction for decompression. Maroon colored fluid. - Surgery taking pt to OR for repair of pneumoperitoneum. - Dr. Pimentel consulted- Believes pt to be septic, will Continue zosyn without dextrose due to hyperglycemia. - continue steroids IV for chron's flare, which may be cause of hyperglycemia #ID - On zosyn for GI abhijit coverage - IV LR 125cc #FEN - 125cc/hr LR - NPO, NGT decompression - Lytes in AM, replete PRN PPx: SCD's Visit type - Emergency Visit Emergency Visit: No - New Patient This patient is new to me today: No - Critical Care Critical Care patient: Yes Total Critical Care Time (in minutes): 40 Critical Care Statement: The care of this patient involved high complexity decision making to prevent further life threatening deterioration of the patient 's condition and/or to evaluate & treat vital organ system(s) failure or risk of failure. - Discharge Referral Referred to [facility] No ATTENDING PHYSICIAN STATEMENT I saw and evaluated the patient. I reviewed the resident's note and discussed the case with the resident. I agree with the resident's findings and plan as documented. SUBJECTIVE: OBJECTIVE: ASSESSMENT AND PLAN:
[2019-03-12 07:11] LABS: BASO % 0.3 % (0-2.0); EOS % 0.3 % (0-4.5); HEMATOCRIT 23.4 % (32.4-45.2); HEMOGLOBIN 7.5 GM/dL (10.7-15.3); LYMPH % 12.4 % (8-40); MCH 25.7 pg (25.7-33.7); MCHC 32.2 g/dl (32.0-36.0); MEAN CELL VOLUME 79.8 fl (80-96); MEAN PLT VOLUME 8.4 fl (7.5-11.1); MONO % 2.7 % (3.8-10.2); NEUT % 84.3 % (42.8-82.8); PLATELET COUNT 220 K/MM3 (134-434); RBC 2.93 M/mm3 (3.60-5.2); RDW 20.2 % (11.6-15.6); WHITE BLOOD COUNT 2.8 K/mm3 (4.0-10.0)
[2019-03-12 07:33] LABS: BLOOD UREA NITROGEN 20.2 mg/dL (7-18); CALCIUM 8.4 mg/dL (8.5-10.1); CREATININE 0.6 mg/dL (0.55-1.3); MAGNESIUM 1.9 mg/dL (1.8-2.4); PHOSPHOROUS 2.5 mg/dL (2.5-4.9); POTASSIUM 4.1 mmol/L (3.5-5.1)
--- NOTE | 2019-03-12 09:11 | PN ---
Progress Note, Physician Chief Complaint: patient moaning in bed History of Present Illness: 48 year-old female with a PMH significant for Type I IDDM, frequent admissions for DKA, HTN, HLD, CVA with left-sided weakness. Recent hospitalization at [facility] September 2018 for SBO. Patient also states she had open heart surgery at [facility] for "a clot in my heart" at or about the same time as surgery for the SBO . Patient states she was on her way for a checkup with Dr. Chaudhary when she developed sharp abdominal pain so she came to the ED. Patient has not had BM or passed flatus since onset of pain Last BM was day before yesterday. NGT placed in ED > 1000cc output greenish/brown fluid. - Current Medication List Current Medications: Active Medications Acetaminophen (Ofirmev Injection -) 1,000 mg IVPB Q6H PRN PRN Reason: PAIN LEVEL 1-5 Last Admin: 03/11/19 11:58 Dose: 1,000 mg Hydromorphone HCl (Dilaudid Vial -) 1 mg IVPUSH Q4H PRN PRN Reason: PAIN LEVEL 6-10 Last Admin: 03/12/19 04:56 Dose: 1 mg Piperacillin Sod/Tazobactam (Sod 3.375 gm/ Dextrose) 50 mls @ 100 mls/hr IVPB Q8H-IV [facility]; Protocol Last Admin: 03/12/19 01:59 Dose: 100 mls/hr Heparin Sodium (Porcine) 25, (000 unit/ Sodium Chloride) 500 mls @ 16 mls/hr IV TITR [facility]; Protocol Last Titration: 03/11/19 20:47 Dose: 0 unit/hr, 0 mls/hr Lactated Ringer's (Lactated Ringers Solution) 1,000 ml in 1,000 mls @ 125 mls/ hr IV ASDIR [facility] Last Admin: 03/11/19 12:08 Dose: 125 mls/hr Pantoprazole Sodium 80 mg/ (Sodium Chloride) 100 mls @ 10 mls/hr IVPB Q10H [facility] Last Admin: 03/11/19 21:51 Dose: 10 mls/hr Insulin Aspart (Novolog Vial Sliding Scale -) 1 vial SQ ACHS [facility]; Protocol Last Admin: 03/12/19 06:11 Dose: 12 units Methylprednisolone Sodium Succinate (Solu-Medrol -) 40 mg IVPUSH DAILY [facility] Last Admin: 03/11/19 13:37 Dose: 40 mg Ondansetron HCl (Zofran Injection) 4 mg IVPUSH Q6H PRN PRN Reason: NAUSEA AND/OR VOMITING Last Admin: 03/12/19 03:58 Dose: 4 mg - Objective Vital Signs: Vital Signs Temperature 99.2 F 03/12/19 06:00 Pulse Rate 108 H 03/12/19 08:00 Respiratory Rate 22 H 03/12/19 08:00 Blood Pressure 95/65 03/12/19 08:00 O2 Sat by Pulse Oximetry (%) 98 03/12/19 08:00 Additional Findings/Remarks: Constitutional: Yes: Mild Distress, Thin Eyes: Yes: WNL, Conjunctiva Clear, EOM Intact HENT: Yes: WNL, Atraumatic, Normocephalic Neck: Yes: WNL, Supple, Trachea Midline Cardiovascular: Yes: Regular Rate and Rhythm, Tachycardia Respiratory: Yes: Diminished (at bases), On Nasal O2 Gastrointestinal: Yes: Soft, Hypoactive Bowel Sounds, Tenderness (diffuse), Other (NGT to right nares with biliuos drainage LIWS) ...Rectal Exam: Yes: Deferred Genitourinary: Yes: Incontinence Breast(s): Yes: WNL Musculoskeletal: Yes: Muscle Weakness (generalized) Edema: Yes Edema: LLE: 1+, RLE: 1+ Peripheral Pulses: Left Radial: 2+, Right Radial: 2+, Left Doralis Pedis: 2+, Right Dorsalis Pedis: 2+, Left Femoral: 2+, Right Femoral: 2+ Integumentary: Yes: WNL Neurological: Yes: Lethargy, Weakness, Other (responsive to verbal stimuli) Labs: CBC, BMP 03/12/19 06:00 03/12/19 06:00 - ....Imaging Chest X-ray: Report Reviewed, Image Reviewed (appears to be pneumoperitonem, bibasilar atelectasis) Problem List - Problems (1) HLD (hyperlipidemia) Assessment/Plan: restart statin when taking PO Code(s): E78.5 - HYPERLIPIDEMIA, UNSPECIFIED (2) Left-sided weakness Assessment/Plan: PT eval OOB when no longer requiring ICU monitoring Code(s): R53.1 - WEAKNESS (3) History of open heart surgery Code(s): Z98.890 - OTHER SPECIFIED POSTPROCEDURAL STATES (4) Acute Crohn's disease Assessment/Plan: history of chrons followed at [facility], was suppose to start infliximab but never followed through hold steroids for now given noted pneumoperiteneum GI consultation PPI Code(s): K50.90 - CROHN'S DISEASE, UNSPECIFIED, WITHOUT COMPLICATIONS (5) Gastroparesis Code(s): K31.84 - GASTROPARESIS (6) Abdominal pain Assessment/Plan: ofrimev for pain general surgery following NGT to [facility] for decompression zofran/reglan serial AXR Code(s): R10.9 - UNSPECIFIED ABDOMINAL PAIN Qualifiers: Abdominal location: generalized Qualified Code(s): R10.84 - Generalized abdominal pain (7) Small bowel obstruction Assessment/Plan: questionable evolving SBO GI/Gen surgery following Code(s): K56.609 - UNSP INTESTNL OBST, UNSP TO PARTIAL VERSUS COMPLETE OBST (8) Cerebrovascular accident (CVA) Assessment/Plan: left sided weakness PT to follow Code(s): I63.9 - CEREBRAL INFARCTION, UNSPECIFIED Qualifiers: CVA mechanism: unspecified Qualified Code(s): I63.9 - Cerebral infarction, unspecified (9) Chronic pain Code(s): G89.29 - OTHER CHRONIC PAIN Qualifiers: Chronic pain type: chronic pain syndrome Qualified Code(s): G89.4 - Chronic pain syndrome (10) Prophylactic measure Assessment/Plan: FEN NPO with NGT monitor electrolytes IVF, fluid resusitation in progress DVT heparin stopped over night Dispo requres ICU care full code discharge planning Code(s): Z29.9 - ENCOUNTER FOR PROPHYLACTIC MEASURES, UNSPECIFIED (11) Diabetes Assessment/Plan: BGM AC/HS with novolog sliding scale careful glycemic control with multiple episodes of DKA Code(s): E11.9 - TYPE 2 DIABETES MELLITUS WITHOUT COMPLICATIONS (12) Coffee ground emesis Assessment/Plan: PPI GI following NGT to [facility] Code(s): K92.0 - HEMATEMESIS Visit type - Emergency Visit Emergency Visit: Yes ED Registration Date: 03/09/19 Care time: The patient presented to the Emergency Department on the above date and was hospitalized for further evaluation of their emergent condition. - New Patient This patient is new to me today: No - Critical Care Critical Care patient: Yes Total Critical Care Time (in minutes): 45 Critical Care Statement: The care of this patient involved high complexity decision making to prevent further life threatening deterioration of the patient 's condition and/or to evaluate & treat vital organ system(s) failure or risk of failure. - Discharge Referral Referred to [facility] Med [facility].: No
[2019-03-12] MEDS ORDERED: predniSONE 20 MG TABLET (UD) PO SCH (10:00)
--- NOTE | 2019-03-12 10:17 | CON.GI ---
Consult Consult Specialty:: GI Referred by:: Hospitalist Service Reason for Consultation:: Abdominal pain - History of Present Illness Chief Complaint: Patient currently a poor historian History of Present Illness: 48F transferred from [facility] to [facility] for continued evaluation evaluation of vomiting , abdominal pain, DKA and suspected SBO. Patient currently is a poor historian. She complains of abdominal pain. She states that she was due to have a remicade infusion today at [facility] and last saw her corporate intern Dr. Chadwick there 2 weeks ago. Per the Nurse Practitioner caring for her at [facility], she obtained records from Dr. Chadwick and Ms. Rosas has not been compliant with follow -up. Records not in the physical chart as of yet for review. She denies diarrhea. She denies rectal bleeding. She has had an NGT in place, is on NOAC for DVT which has currently been changed to heparin infusion. From previous admission, she had been discharged from [facility] in 12/16,where she had been admitted for 2 weeks. She believed at that time that the reason for that admission was for shortness of breath and abdominal pain. She had also been admitted to [facility] in 09/15 and alluded to having has surgery for small bowel obstruction. At this time she thinks she may have been told about a "clot in her leg" and PE. She also states that she was referred to corporate intern Dr. Scar Robertson at [facility] by her previous corporate intern Dr. Jj Ortiz "because he could not do anything more for her". That's when she began being evaluated by Dr. Chadwick. Dr. Ortiz had performed esophageal dilations on Ms. Rosas for suspected peptic stricture. She states that she was diagnosed with Crohn's disease based on "tests". She stated having had a colonoscopy [facility] 11/15 that led to the removal of 2 polyps. She did not recall being told of colitis. She was treated for P.E. and was placed on Prednisone 40mg once daily. There has been no diarrhea since admission. She was started on methylprednisolon 40mg IVPB daily yesterday , is on Zosyn. AXR today revealed distebded stomach and small bowel loops c/w obstruction / partial SBO. Blood glucose 400's. - History Source History Provided By: Patient, Medical Record Limitations to Obtaining History: Poor Historian - Past Medical History NEWS REPORTER: Yes: CVA (right MCA), Migraine Cardio/Vascular: Yes: Hyperlipdemia Gastrointestinal: Yes: Other (Gastroparesis, esophageal stricture) ...LMP: 04/14/13 Musculoskeletal: Yes: Chronic low back pain Endocrine: Yes: Diabetes Mellitus Additional Medical History: dka in the past - Past Surgical History Past Surgical History: Yes: Cholecystectomy Additional Surgical History: ? bowel surgery at [facility] 09/15 for SBO - Alcohol/Substance Use Hx Alcohol Use: No History of Substance Use: reports: None - Smoking History Smoking history: Current every day smoker Have you smoked in the past 12 months: Yes Aproximately how many cigarettes per day: 10 - Social History ADL: Independent Occupation: Unemployed Place of : [facility] History of Recent Travel: No Home Medications - Allergies Allergies/Adverse Reactions: Allergies Allergy/AdvReac Type Severity Reaction Status Date / Time No Known Allergies Allergy Verified 03/09/19 16:48 - Home Medications Home Medications: Ambulatory Orders Aspirin 81 mg PO DAILY #30 tab.chew 08/13/18 Atorvastatin Ca [Lipitor] 40 mg PO HS #30 tablet 08/13/18 Gabapentin 300 mg PO BID 12/23/18 Quetiapine Fumarate [Seroquel -] 25 mg PO BID 12/23/18 Insulin Sliding Scale [Novolog Vial Sliding Scale -] 1 vial SQ ACHS #600 units 12/25/18 Rivaroxaban [Xarelto] 15 mg PO BID #60 tablet 12/25/18 predniSONE [Deltasone -] 40 mg PO DAILY #30 tablet 12/25/18 traMADol HCL [Ultram -] 100 mg PO Q8H PRN #90 tablet MDD 6 12/25/18 Insulin Detemir [Levemir Flextouch] 12 unit SQ BID 01/26/19 Amoxicillin/Potassium Clav [Augmentin 875-125 Tablet] 1 each PO BID 03/07/19 HYDROmorphone [Dilaudid -] 4 mg PO Q6H PRN 03/07/19 Family Disease History - Family Disease History Family Disease History: Heart Disease: Father (cad), Other: Mother (Alive (70) well) Review of Systems Findings/Remarks: Poor historian. Denies diarrhea / rectal bleeding - Review of Systems Gastrointestinal: reports: Abdominal Pain, Nausea, Vomiting. denies: Vomiting Blood Physical Exam-GI Vital Signs: Vital Signs Temperature 99.2 F 03/12/19 06:00 Pulse Rate 108 H 03/12/19 08:00 Respiratory Rate 22 H 03/12/19 08:00 Blood Pressure 95/65 03/12/19 08:00 O2 Sat by Pulse Oximetry (%) 98 03/12/19 08:00 Constitutional: Yes: Mild Distress Eyes: No: Sclera Icterus Cardiovascular: Yes: Tachycardia Respiratory: Yes: Diminished (at bases bilaterally) Gastrointestinal Inspection: No: Distention ...Auscultate: Yes: Hypoactive Bowel Sounds ...Palpate: Yes: Tenderness (Marked TTP). No: Soft ...Percussion: No: Tympanitic Edema: No (No LE edema) Neurological: Yes: Alert Labs: CBC, BMP 03/12/19 06:00 03/12/19 06:00 Hepatic Panel Total Bilirubin 0.5 mg/dL (0.2-1) 03/11/19 05:10 AST 17 U/L (15-37) 03/11/19 05:10 ALT 11 U/L (13-61) L 03/11/19 05:10 Alkaline Phosphatase 100 U/L (45-117) 03/11/19 05:10 Albumin 1.7 g/dl (3.4-5.0) L 03/11/19 05:10 Problem List - Problems (1) Abdominal pain Assessment/Plan: In setiing of a complicated history of uncontrolled diabetes, DKA, prior SBO, ? h/o Crohn's disease followed at [facility] now with worsening abdominal pain, suspected evolving SBO. Marked abdominal tenderness noted on exam Advise: NPO IV Hydration and supportive measures per primary team Ordered repeat CT scan of abdomen and pelvis with contrast to reevaluate Discussed abdominal findings with Dr. Krishnamurthy, who will be reevaluating the patient and agreed with repeat abdominal imaging Coffee gorunds noted last night. She has an NGT and had been on heparin drip given her h/o recent DVT/PE. Continue Protonix 40mg IVP BID No diarrhea as of yet reported by patient or nurse. Stool for C. Diff if diarrhea ensues. IV antibiotics per ID Glycemic control Patient's condition guarded Code(s): R10.9 - UNSPECIFIED ABDOMINAL PAIN Qualifiers: Abdominal location: generalized Qualified Code(s): R10.84 - Generalized abdominal pain
[2019-03-12] MEDS: PANTOPRAZOLE SODIUM 80 MG in SODIUM CHLORIDE 100 ML IVPB SCH (10:39)
[2019-03-12] MEDS: methylPREDNISolone NA SUCC 40 MG/1 ML VIAL IVPUSH SCH (10:45)
--- NOTE | 2019-03-12 11:11 | PN ---
Teaching Attending Note Name of Resident: Howie Chavis ATTENDING PHYSICIAN STATEMENT I saw and evaluated the patient. I reviewed the resident's note and discussed the case with the resident. I agree with the resident's findings and plan as documented. SUBJECTIVE: Patient seen and examined in the ICU. Uncomfortable due to pain. Yesterday there was a concern for pneumoperitoneum. Pulled out NGT but replaced. Diffuse abdominal discomfort. No CP or SOB. Seen by GI. Repeat CT ordered. [facility] was contacted but deferred the transfer. Intake & Output 03/09/19 03/10/19 03/11/19 03/12/19 23:59 23:59 23:59 23:59 Intake Total 2950 7179 995 Output Total 300 854 200 Balance 2650 6325 795 Weight 130 lb 124 lb 9.014 oz Last Vital Signs Temp Pulse Resp BP Pulse Ox 98.5 F 107 H 20 115/74 98 03/12/19 10:00 03/12/19 10:00 03/12/19 10:00 03/12/19 10:00 03/12/19 08:00 Active Medications Acetaminophen (Ofirmev Injection -) 1,000 mg IVPB Q6H PRN PRN Reason: PAIN LEVEL 1-5 Last Admin: 03/11/19 11:58 Dose: 1,000 mg Hydromorphone HCl (Dilaudid Vial -) 1 mg IVPUSH Q4H PRN PRN Reason: PAIN LEVEL 6-10 Last Admin: 03/12/19 04:56 Dose: 1 mg Piperacillin Sod/Tazobactam (Sod 3.375 gm/ Dextrose) 50 mls @ 100 mls/hr IVPB Q8H-IV [facility]; Protocol Last Admin: 03/12/19 10:44 Dose: 100 mls/hr Heparin Sodium (Porcine) 25, (000 unit/ Sodium Chloride) 500 mls @ 16 mls/hr IV TITR [facility]; Protocol Last Titration: 03/11/19 20:47 Dose: 0 unit/hr, 0 mls/hr Lactated Ringer's (Lactated Ringers Solution) 1,000 ml in 1,000 mls @ 125 mls/ hr IV ASDIR [facility] Last Admin: 03/11/19 12:08 Dose: 125 mls/hr Insulin Aspart (Novolog Vial Sliding Scale -) 1 vial SQ ACHS [facility]; Protocol Last Admin: 03/12/19 06:11 Dose: 12 units Methylprednisolone Sodium Succinate (Solu-Medrol -) 40 mg IVPUSH DAILY [facility] Last Admin: 03/12/19 10:45 Dose: 40 mg Ondansetron HCl (Zofran Injection) 4 mg IVPUSH Q6H PRN PRN Reason: NAUSEA AND/OR VOMITING Last Admin: 03/12/19 03:58 Dose: 4 mg Pantoprazole Sodium (Protonix Iv) 40 mg IVPUSH BID [facility] GENERAL: Sleepy but arousable, uncomfortable due to pain. HEAD: Normal with no signs of trauma. EYES: Pupils equal, round and reactive to light, extraocular movements intact, sclera anicteric, conjunctiva clear. EARS, NOSE, THROAT: Ears normal, nares patent, oropharynx clear without exudates. Moist mucous membranes. NECK: Normal range of motion, supple without lymphadenopathy, JVD, or masses. LUNGS: Breath sounds equal, clear to auscultation bilaterally. No wheezes, and no crackles. No accessory muscle use. HEART: Tachycardic, normal S1 and S2 without murmur, rub or gallop. ABDOMEN: Mild diffuse tenderness, (+) BS. No guarding, no rebound. MUSCULOSKELETAL: Normal range of motion at all joints. No bony deformities or tenderness. No CVA tenderness. UPPER EXTREMITIES: 2+ pulses, warm, well-perfused. No cyanosis. No clubbing. Cap refill <2 seconds. No peripheral edema. LOWER EXTREMITIES: 2+ pulses, warm, well-perfused. No calf tenderness. No peripheral edema. NEUROLOGICAL: Sleepy but arousable, Non-focal SKIN: Warm, dry, normal turgor, no rashes or lesions noted. Laboratory Results - last 24 hr 03/10/19 03/11/19 03/11/19 07:20 12:03 15:45 WBC RBC Hgb Hct MCV MCH MCHC RDW Plt Count MPV Absolute Neuts (auto) Neutrophils % Neutrophils % (Manual) Band Neutrophils % Lymphocytes % Lymphocytes % (Manual) Monocytes % Monocytes % (Manual) Eosinophils % Eosinophils % (Manual) Basophils % Nucleated RBC % PTT (Actin FS) 51.9 H Sodium Potassium Chloride Carbon Dioxide Anion Gap BUN Creatinine Est GFR (CKD-EPI)AfAm Est GFR (CKD-EPI)NonAf POC Glucometer 207 Random Glucose Lactic Acid Calcium Phosphorus Magnesium Blood Type A NEGATIVE Antibody Screen Positive Antibody Identification Adig Crossmatch See Detail 03/11/19 03/11/19 03/11/19 16:00 17:23 21:00 WBC 2.5 L RBC 3.05 L Hgb 7.5 L Hct 24.4 L MCV 80.1 MCH 24.6 L MCHC 30.7 L RDW 20.4 H Plt Count 260 MPV 8.1 Absolute Neuts (auto) 2.1 Neutrophils % 82.3 Neutrophils % (Manual) 72.0 Band Neutrophils % 1.0 Lymphocytes % 13.1 D Lymphocytes % (Manual) 24.0 D Monocytes % 3.8 D Monocytes % (Manual) 2 L D Eosinophils % 0.5 Eosinophils % (Manual) 1.0 D Basophils % 0.3 Nucleated RBC % 0 PTT (Actin FS) Sodium Potassium Chloride Carbon Dioxide Anion Gap BUN Creatinine Est GFR (CKD-EPI)AfAm Est GFR (CKD-EPI)NonAf POC Glucometer 146 Random Glucose Lactic Acid 3.8 H* Calcium Phosphorus Magnesium Blood Type Antibody Screen Antibody Identification Crossmatch 03/11/19 03/12/19 03/12/19 21:37 06:00 06:00 WBC 2.8 L RBC 2.93 L Hgb 7.5 L Hct 23.4 L MCV 79.8 L MCH 25.7 MCHC 32.2 RDW 20.2 H Plt Count 220 MPV 8.4 Absolute Neuts (auto) 2.4 Neutrophils % 84.3 H Neutrophils % (Manual) Band Neutrophils % Lymphocytes % 12.4 Lymphocytes % (Manual) Monocytes % 2.7 L Monocytes % (Manual) Eosinophils % 0.3 Eosinophils % (Manual) Basophils % 0.3 Nucleated RBC % 0 PTT (Actin FS) Sodium 137 Potassium 4.1 Chloride 99 Carbon Dioxide 25 Anion Gap 13 BUN 20.2 H Creatinine 0.6 Est GFR (CKD-EPI)AfAm 124.05 Est GFR (CKD-EPI)NonAf 107.03 POC Glucometer 220 Random Glucose 430 H* Lactic Acid Calcium 8.4 L Phosphorus 2.5 Magnesium 1.9 Blood Type Antibody Screen Antibody Identification Crossmatch 03/12/19 03/12/19 06:00 06:01 WBC RBC Hgb Hct MCV MCH MCHC RDW Plt Count MPV Absolute Neuts (auto) Neutrophils % Neutrophils % (Manual) Band Neutrophils % Lymphocytes % Lymphocytes % (Manual) Monocytes % Monocytes % (Manual) Eosinophils % Eosinophils % (Manual) Basophils % Nucleated RBC % PTT (Actin FS) 33.9 Sodium Potassium Chloride Carbon Dioxide Anion Gap BUN Creatinine Est GFR (CKD-EPI)AfAm Est GFR (CKD-EPI)NonAf POC Glucometer 465 Random Glucose Lactic Acid Calcium Phosphorus Magnesium Blood Type Antibody Screen Antibody Identification Crossmatch ASSESSMENT/PLAN: SBO versus flair of inflammatory bowel disease R/O GI source of infection Type I IDDM, frequent admissions for DKA PE on Xarelto HTN HLD CVA with mild left-sided weakness NGT decompression NPO for now CT scan will be repeated IVF AC Will D/W will surgery after repeat CT is completed ABX per ID Continued ICU monitoring for tenuous status and new findings Dr Otero Critical care time spent in reviewing chart, evaluating patient and formulating plan - 36 minutes.
[2019-03-12] MEDS ORDERED: HEPARIN - 25,000 UNIT in SODIUM CHLORIDE 495 ML IV SCH (13:00)
[2019-03-12] MEDS ORDERED: LACTATED RINGERS SOLUTION 1,000 ML/1,000 ML INFUS.BAG IV SCH ×2 (13:00→21:17)
[2019-03-12] MEDS ORDERED: HEPARIN NA (PORCINE) 5,000 UNITS/ML 1ML VIAL IVPUSH PRN (13:00)
[2019-03-12] MEDS ORDERED: HYDROmorphone HCl 2 MG/ML VIAL IVPUSH PRN (13:00)
[2019-03-12] MEDS: LACTATED RINGERS SOLUTION 1,000 ML/1,000 ML INFUS.BAG IV SCH (13:03)
[2019-03-12 13:10] LABS: ANISOCYTOSIS 2+; MACROCYTOSIS 0; OVALOCYTE 1+; PLATELET ESTIMATE NORMAL; TARGET CELLS 1+
--- NOTE | 2019-03-12 13:54 | PN ---
Progress Note, Physician History of Present Illness: events noted xray findings noted patient had hematemesis patient for ct scan currently stable gi on board - Current Medication List Current Medications: Active Medications Acetaminophen (Ofirmev Injection -) 1,000 mg IVPB Q6H PRN PRN Reason: PAIN LEVEL 1-5 Hydromorphone HCl (Dilaudid Vial -) 1 mg IVPUSH Q4H PRN PRN Reason: PAIN LEVEL 6-10 Lactated Ringer's (Lactated Ringers Solution) 1,000 ml in 1,000 mls @ 125 mls/ hr IV ASDIR [facility] Piperacillin Sod/Tazobactam (Sod 3.375 gm/ Dextrose) 50 mls @ 100 mls/hr IVPB Q8H-IV [facility]; Protocol Piperacillin Sod/Tazobactam (Sod 3.375 gm/ Dextrose) 50 mls @ 100 mls/hr IVPB Q8H-IV [facility]; Protocol Stop: 03/13/19 02:29 Insulin Aspart (Novolog Vial Sliding Scale -) 1 vial SQ ACHS [facility]; Protocol Ondansetron HCl (Zofran Injection) 4 mg IVPUSH Q6H PRN PRN Reason: NAUSEA AND/OR VOMITING Last Admin: 03/12/19 03:58 Dose: 4 mg Pantoprazole Sodium (Protonix Iv) 40 mg IVPUSH BID [facility] - Objective Vital Signs: Vital Signs Temperature 98.4 F 03/12/19 11:45 Pulse Rate 109 H 03/12/19 11:45 Respiratory Rate 24 H 03/12/19 11:45 Blood Pressure 104/71 03/12/19 11:45 O2 Sat by Pulse Oximetry (%) 100 03/12/19 11:46 Constitutional: Yes: No Distress, Calm Cardiovascular: Yes: Regular Rate and Rhythm Respiratory: Yes: Regular, CTA Bilaterally Gastrointestinal: Yes: Other (absent bowel sounds) Musculoskeletal: Yes: WNL Extremities: Yes: WNL Neurological: Yes: Alert, Oriented Psychiatric: Yes: Alert, Oriented Labs: CBC, BMP 03/12/19 06:00 03/12/19 06:00 Assessment/Plan SBO versus flair of inflammatory bowel disease R/O GI source of infection Type I IDDM, PE HTN HLD CVA with mild left-sided weakness patient also has organism in the urine plan continue zosyn to see if perforation is present surgery on case npo hydration monitor bleeding rest as per surgery and icu cc 40 min
[2019-03-12] MEDS ORDERED: LIDOCAINE HCL/PF 2% SDV 5ML VIAL ONE (15:38)
[2019-03-12] MEDS ORDERED: DEXAMETHASONE SOD PHOSPHATE 4 MG/1 ML VIAL ONE (15:38)
[2019-03-12] MEDS ORDERED: PROPOFOL 20 ML ONE (15:39)
[2019-03-12] MEDS ORDERED: SUCCINYLCHOLINE CHLORIDE 200 MG/10 ML SYRINGE ONE (16:02)
--- NOTE | 2019-03-12 16:05 | PN ---
Progress Note (short form) - Note Progress Note: Pt found to have a rigid abdomen on exam. Pt found to have pneumoperitoneum on CT abd/pelvis. Surgery (Dr. Krishnamurthy) was called stat to evaluate. Pt is to be taken to the OR immediately for repair by Dr. Krishnamurthy.
[2019-03-12 16:12] LABS: BASO % 0.6 % (0-2.0); EOS % 0.1 % (0-4.5); HEMATOCRIT 26.1 % (32.4-45.2); HEMOGLOBIN 8.6 GM/dL (10.7-15.3); LYMPH % 5.6 % (8-40); MEAN CELL VOLUME 78.7 fl (80-96); MEAN PLT VOLUME 8.1 fl (7.5-11.1); MONO % 3.6 % (3.8-10.2); NEUT % 90.1 % (42.8-82.8); PLATELET COUNT 224 K/MM3 (134-434); RBC 3.32 M/mm3 (3.60-5.2); RDW 18.9 % (11.6-15.6); WHITE BLOOD COUNT 3.4 K/mm3 (4.0-10.0)
[2019-03-12] MEDS ORDERED: CEFOXITIN SODIUM 1 GM IVPB ONE (16:16)
[2019-03-12] MEDS ORDERED: BUPIVACAINE HCL/PF 0.25% (2.5MG/ML) 10 ML VIAL ONE (16:29)
[2019-03-12] MEDS ORDERED: KETAMINE HCL 200 MG/20 ML VIAL ONE ×2 (16:52→16:54)
[2019-03-12] MEDS ORDERED: ACETAMINOPHEN INJECTION 100 ML IVPB ONE (16:55)
[2019-03-12] MEDS ORDERED: FLUCONAZOLE 100 MG/D5W 50 ML IVPB ONE (17:00)
[2019-03-12] MEDS ORDERED: GLYCOPYRROLATE 0.2 MG/1 ML VIAL ONE (18:12)
[2019-03-12] MEDS ORDERED: NEOSTIGMINE METHYLSULFATE 0.5 MG/ML - 10 ML MDV ONE (18:13)
[2019-03-12] MEDS ORDERED: HYDROmorphone HCl 2 MG/ML VIAL ONE (18:21)
--- NOTE | 2019-03-12 18:29 | PN ---
Progress Note, Physician Chief Complaint: Abdominal Pain History of Present Illness: 48yo female PMH HTN, CVA (left sided hemiparesis), HLD, IDDM, DKA resulting in multiple admissions, dysphagia, gastroparesis, esophageal stricture (EGD 02/14), c/diff (10/2018), SBO September 2018 (s/p SB resection at [facility] as per pt report) presented to [facility] on the afternoon of 12/21 with complaints of N/V/D/ abd pain intermittently for years. She has had persistent pain but has had improved hemodynamics after IVF resuscitation. - Current Medication List Current Medications: Active Medications Acetaminophen (Ofirmev Injection -) 1,000 mg IVPB Q6H PRN PRN Reason: PAIN LEVEL 1-5 Hydromorphone HCl (Dilaudid Vial -) 1 mg IVPUSH Q4H PRN PRN Reason: PAIN LEVEL 6-10 Last Admin: 03/12/19 15:15 Dose: 1 mg Lactated Ringer's (Lactated Ringers Solution) 1,000 ml in 1,000 mls @ 125 mls/ hr IV ASDIR [facility] Last Admin: 03/12/19 15:54 Dose: 125 mls/hr Piperacillin Sod/Tazobactam (Sod 3.375 gm/ Dextrose) 50 mls @ 100 mls/hr IVPB Q8H-IV [facility]; Protocol Piperacillin Sod/Tazobactam (Sod 3.375 gm/ Dextrose) 50 mls @ 100 mls/hr IVPB Q8H-IV [facility]; Protocol Stop: 03/13/19 02:29 Last Admin: 03/12/19 15:17 Dose: Not Given Insulin Aspart (Novolog Vial Sliding Scale -) 1 vial SQ ACHS [facility]; Protocol Last Admin: 03/12/19 16:52 Dose: Not Given Ondansetron HCl (Zofran Injection) 4 mg IVPUSH Q6H PRN PRN Reason: NAUSEA AND/OR VOMITING Last Admin: 03/12/19 03:58 Dose: 4 mg Pantoprazole Sodium (Protonix Iv) 40 mg IVPUSH BID [facility] - Objective Vital Signs: Vital Signs Temperature 98.8 F 03/12/19 14:00 Pulse Rate 108 H 03/12/19 15:55 Respiratory Rate 03/12/19 15:55 Blood Pressure 118/72 03/12/19 15:55 O2 Sat by Pulse Oximetry (%) 100 03/12/19 11:46 Vital Signs Period Temp Pulse Resp BP Sys/Rapp Pulse Ox Last 24 Hr 98.6 F-99.1 F 79-130 16-30 82-143/49-81 86-125 Intake & Output 03/14/19 03/15/19 03/15/19 23:59 07:59 15:59 Intake Total 2360 Output Total 600 500 Balance 1760 -500 Intake: IV 2260 Heparin - 25,000 Unit In 160 Normal Saline - 495 ml @ 800 UNIT/HR 16 mls/hr IV TITR [facility] Rx#:[id number] LACTATED RINGERS SOLUTION 2100 1,000 ml In 1,000 ml @ 175 mls/hr IV ASDIR [facility] Rx#:[id number] IVPB 100 Output: Gastric Drainage 600 Urine 500 Lott 500 Other: Voiding Method Indwelling Catheter Indwelling Catheter Indwelling Catheter Bowel Movement Yes Yes # Bowel Movements 1 Body Mass Index (BMI) 21.9 Constitutional: Yes: Well Nourished, No Distress, Calm Eyes: Yes: Conjunctiva Clear, EOM Intact HENT: Yes: Atraumatic, Normocephalic Neck: Yes: Supple, Trachea Midline Cardiovascular: Yes: Regular Rate and Rhythm, S1, S2 Respiratory: Yes: Regular, CTA Bilaterally Gastrointestinal: Yes: Soft, Distention, Hypoactive Bowel Sounds, Tenderness, Tenderness, Rebound ...Rectal Exam: Yes: Deferred Genitourinary: No: CVA Tenderness - Left, CVA Tenderness - Right Breast(s): No: Mass, Skin Changes Musculoskeletal: No: Muscle Pain, Muscle Weakness Extremities: No: Cool, Cyanosis Edema: No Peripheral Pulses WNL: Yes Peripheral Pulses: Left Radial: 2+, Right Radial: 2+, Left Doralis Pedis: 2+, Right Dorsalis Pedis: 2+, Left Femoral: 2+, Right Femoral: 2+ Integumentary: No: Jaundice, Rash, Tenting Neurological: Yes: Alert, Oriented Psychiatric: Yes: Alert, Oriented Labs: CBC, BMP 03/12/19 15:20 03/12/19 06:00 Problem List - Problems (1) Small bowel obstruction Assessment/Plan: 48yo female with MMP including SBO, chronic constipation, Gastroparesis and crohns disease presenting with Abdominal pain. She has several possible explanations for this pain. worsening abdominal pain Monitored Setting NPO and IVF hydration NGT decompression (intermittent suction) suppositories and Chrons flare management GI evaluation Serial abdominal exams will follow This patient is critically ill. Time spent reviewing chart, examining patient, talking with providers and/or family and documentation is 45 minutes. Code(s): K56.609 - UNSP INTESTNL OBST, UNSP TO PARTIAL VERSUS COMPLETE OBST (2) Abdominal pain Code(s): R10.9 - UNSPECIFIED ABDOMINAL PAIN Qualifiers: Abdominal location: generalized Qualified Code(s): R10.84 - Generalized abdominal pain (3) Crohn's disease Code(s): K50.90 - CROHN'S DISEASE, UNSPECIFIED, WITHOUT COMPLICATIONS (4) DKA (diabetic ketoacidoses) Code(s): E13.10 - OTH DIABETES MELLITUS WITH KETOACIDOSIS WITHOUT COMA Qualifiers: Diabetes mellitus type: type 1 Diabetes mellitus complication detail: without coma Qualified Code(s): E10.10 - Type 1 diabetes mellitus with ketoacidosis without coma (5) Nausea & vomiting Code(s): R11.2 - NAUSEA WITH VOMITING, UNSPECIFIED (6) Cerebrovascular accident (CVA) Code(s): I63.9 - CEREBRAL INFARCTION, UNSPECIFIED Qualifiers: CVA mechanism: unspecified Qualified Code(s): I63.9 - Cerebral infarction, unspecified
[2019-03-12] MEDS ORDERED: PIPERACILLIN/TAZOB 3.375 GM 3.375 GM in DEXTROSE 5%-WATER - 50 ML IVPB SCH (18:30)
[2019-03-12 18:37] LABS: ANISOCYTOSIS 2+; MACROCYTOSIS 0; OVALOCYTE 1+; PLATELET ESTIMATE NORMAL; TEAR DROP CELLS 1+
--- NOTE | 2019-03-12 18:37 | OP ---
Operative Note - Note: Operative Date: 03/12/19 Pre-Operative Diagnosis: perforate viscus with Free air Operation: exploratory laparotomy, lysis of adhesions, segmental resection of small intestinal perforation with side-side stapled anastomosis, abdominal washout, resection of portion of omentum Findings: thin distended stomach, mid ileum full thickness perforation, adhesions in right lower quadrant to anterior abdominal wall. normal appendix seen, remainder of abdominal viscera was normal appearing Post-Operative Diagnosis: Same as Pre-op Surgeon: Som Krishnamurthy Sewing Machine Bobbin Winder: Ethan Amador Anesthesiologist/MANHOLE STRIPPER: Rashaun Reddy Anesthesia: General, Local (TAP block) Specimens Removed: segmant of small intestines (mid ileum) Estimated Blood Loss (mls): 50 Blood Volume Replaced (mls): 250 (FFP) Fluid Volume Replaced (mls): 1,300
[2019-03-12] MEDS ORDERED: HYDROmorphone *PCA* 10MG/50ML DISP.SYRIN ONE (18:56)
[2019-03-12] MEDS: HYDROmorphone *PCA* 10MG/50ML DISP.SYRIN PCA SCH (19:00)
--- NOTE | 2019-03-12 19:40 | PN ---
Progress Note (short form) - Note Progress Note: Events noted. Perforated distal small bowel. Per the primary team, the patient has been on prednisone daily since prior to admission? If this is the case, would defer to critical care team as to whether stress dose steroids are needed at this time Problem List - Problems (1) Abdominal pain Code(s): R10.9 - UNSPECIFIED ABDOMINAL PAIN Qualifiers: Abdominal location: generalized Qualified Code(s): R10.84 - Generalized abdominal pain
[2019-03-12] MEDS: PANTOPRAZOLE SODIUM 40 MG VIAL IVPUSH SCH (21:04)
[2019-03-12] MEDS ORDERED: SODIUM CHLORIDE 1,000 ML IV STA (21:42)
[2019-03-12 22:16] LABS: BASO % 0.3 % (0-2.0); EOS % 0.2 % (0-4.5); HEMATOCRIT 24.1 % (32.4-45.2); LYMPH % 6.7 % (8-40); MCH 24.6 pg (25.7-33.7); MCHC 33.1 g/dl (32.0-36.0); MEAN CELL VOLUME 74.3 fl (80-96); MEAN PLT VOLUME 7.8 fl (7.5-11.1); MONO % 2.3 % (3.8-10.2); NEUT % 90.5 % (42.8-82.8); PLATELET COUNT 167 K/MM3 (134-434); RBC 3.24 M/mm3 (3.60-5.2); RDW 23.3 % (11.6-15.6); WHITE BLOOD COUNT 3.5 K/mm3 (4.0-10.0)
[2019-03-12 22:31] LABS: ALBUMIN 1.6 g/dl (3.4-5.0); BILIRUBIN,TOTAL 1.2 mg/dL (0.2-1); BLOOD UREA NITROGEN 19.8 mg/dL (7-18); CALCIUM 7.7 mg/dL (8.5-10.1); CREATININE 0.7 mg/dL (0.55-1.3); MAGNESIUM 1.7 mg/dL (1.8-2.4); PHOSPHOROUS 2.5 mg/dL (2.5-4.9); POTASSIUM 3.9 mmol/L (3.5-5.1); TOT PROT 3.9 g/dl (6.4-8.2)
[2019-03-12] MEDS ORDERED: MAGNESIUM SULF 50% (8.12 MEQ/2 ML-1 GM VIAL) IVPB ONE (22:38)
[2019-03-12 22:49] LABS: INR 1.06 (0.83-1.09); PROTHROMBIN TIME (PATIENT) 12.5 SEC (9.7-13.0)
[2019-03-12 22:52] LABS: ACTIVATED PTT 26.6 SECONDS (25.2-36.5)
[2019-03-12 23:15] LABS: ANISOCYTOSIS 1+; PLATELET ESTIMATE ADEQUATE
[2019-03-12] MEDS ORDERED: SODIUM CHLORIDE 500 ML IV STA (23:32)
[2019-03-13] MEDS: PIPERACILLIN/TAZOB 3.375 GM 3.375 GM in DEXTROSE 5%-WATER - 50 ML IVPB SCH ×3 (01:19→17:35)
[2019-03-13] MEDS: LACTATED RINGERS SOLUTION 1,000 ML/1,000 ML INFUS.BAG IV SCH ×3 (01:20→13:10)
[2019-03-13] MEDS ORDERED: SODIUM CHLORIDE 500 ML IV STA ×2 (02:03→04:32)
[2019-03-13] MEDS: ONDANSETRON 4 MG/2 ML VIAL IVPUSH PRN (04:16)
[2019-03-13] MEDS: INSULIN SLIDING SCALE (NOVOLOG) 1 VIAL SQ SCH ×4 (06:32→22:15)
[2019-03-13 07:44] LABS: BASO % 0.2 % (0-2.0); EOS % 0.1 % (0-4.5); HEMATOCRIT 26.4 % (32.4-45.2); HEMOGLOBIN 8.7 GM/dL (10.7-15.3); LYMPH % 9.1 % (8-40); MCH 24.5 pg (25.7-33.7); MEAN CELL VOLUME 74.2 fl (80-96); MONO % 4.4 % (3.8-10.2); NEUT % 86.2 % (42.8-82.8); PLATELET COUNT 187 K/MM3 (134-434); RBC 3.56 M/mm3 (3.60-5.2); RDW 23.9 % (11.6-15.6); WHITE BLOOD COUNT 5.7 K/mm3 (4.0-10.0)
--- NOTE | 2019-03-13 08:16 | PN ---
Physical Exam: SUBJECTIVE: Patient seen and examined OBJECTIVE: Vital Signs Period Temp Pulse Resp BP Sys/Rapp Pulse Ox Last 24 Hr 98.1 F-98.8 F 73-110 12-24 96-141/63-88 90-100 GENERAL: Awake and alert, uncomfortable due to pain. HEAD: Normal with no signs of trauma. EYES: Pupils equal, round and reactive to light, extraocular movements intact, sclera anicteric, conjunctiva clear. EARS, NOSE, THROAT: Ears normal, nares patent, oropharynx clear without exudates. Moist mucous membranes. NECK: Normal range of motion, supple without lymphadenopathy, JVD, or masses. LUNGS: Breath sounds equal, clear to auscultation bilaterally. No wheezes, and no crackles. No accessory muscle use. HEART: Tachycardic, normal S1 and S2 without murmur, rub or gallop. ABDOMEN: Mild diffuse tenderness, Hypoactive BS. No guarding, no rebound. MUSCULOSKELETAL: Normal range of motion at all joints. No bony deformities or tenderness. No CVA tenderness. UPPER EXTREMITIES: 2+ pulses, warm, well-perfused. No cyanosis. No clubbing. Cap refill <2 seconds. No peripheral edema. LOWER EXTREMITIES: 2+ pulses, warm, well-perfused. No calf tenderness. No peripheral edema. NEUROLOGICAL: Non-focal SKIN: Warm, dry, normal turgor, no rashes or lesions noted. Laboratory Results - last 24 hr 03/10/19 03/12/19 03/12/19 07:20 06:00 11:57 WBC RBC Hgb Hct MCV MCH MCHC RDW Plt Count MPV Absolute Neuts (auto) Total Counted Neutrophils % Neutrophils % (Manual) 70.0 Band Neutrophils % 14.0 Lymphocytes % Lymphocytes % (Manual) 11.0 D Monocytes % Monocytes % (Manual) 3 L Eosinophils % Eosinophils % (Manual) 0.0 D Basophils % Basophils % (Manual) 0.0 Myelocytes % (Man) 0 Promyelocytes % (Man) 0 Blast Cells % (Manual) 0 Nucleated RBC % Metamyelocytes 1 D Hypochromia 1+ Platelet Estimate Normal Polychromasia 1+ Poikilocytosis 2+ Anisocytosis 2+ Microcytosis 1+ Macrocytosis 0 Spherocytes 1+ Target Cells 1+ Tear Drop Cells Ovalocytes 1+ [place] Cells 1+ Acanthocytes (Spur) 1+ PT with INR INR PTT (Actin FS) Sodium Potassium Chloride Carbon Dioxide Anion Gap BUN Creatinine Est GFR (CKD-EPI)AfAm Est GFR (CKD-EPI)NonAf POC Glucometer 255 Random Glucose Lactic Acid Calcium Phosphorus Magnesium Total Bilirubin AST ALT Alkaline Phosphatase Total Protein Albumin Blood Type A NEGATIVE Antibody Screen Positive Antibody Identification Anti- d Crossmatch See Detail 03/12/19 03/12/19 03/12/19 15:20 21:09 22:00 WBC 3.4 L 3.5 L RBC 3.32 L 3.24 L Hgb 8.6 L 8.0 L Hct 26.1 L 24.1 L MCV 78.7 L 74.3 L MCH 26.0 24.6 L MCHC 33.0 33.1 RDW 18.9 H 23.3 H Plt Count 224 167 D MPV 8.1 7.8 Absolute Neuts (auto) 3.1 3.1 Total Counted 100 Neutrophils % 90.1 H 90.5 H Neutrophils % (Manual) 73.7 88.0 H Band Neutrophils % 3.0 3.0 Lymphocytes % 5.6 L D 6.7 L Lymphocytes % (Manual) 15.2 D 7.0 L D Monocytes % 3.6 L 2.3 L Monocytes % (Manual) 5 2 L Eosinophils % 0.1 0.2 D Eosinophils % (Manual) 0.0 Basophils % 0.6 0.3 Basophils % (Manual) 0.0 Myelocytes % (Man) 2 D Promyelocytes % (Man) 0 Blast Cells % (Manual) 0 Nucleated RBC % 0 1 H Metamyelocytes 0 D Hypochromia 2+ Platelet Estimate Normal Adequate Polychromasia 0 Poikilocytosis 1+ Anisocytosis 2+ 1+ Microcytosis 2+ 1+ Macrocytosis 0 Spherocytes Target Cells Tear Drop Cells 1+ Ovalocytes 1+ [place] Cells Acanthocytes (Spur) PT with INR INR PTT (Actin FS) Sodium Potassium Chloride Carbon Dioxide Anion Gap BUN Creatinine Est GFR (CKD-EPI)AfAm Est GFR (CKD-EPI)NonAf POC Glucometer 316 Random Glucose Lactic Acid Calcium Phosphorus Magnesium Total Bilirubin AST ALT Alkaline Phosphatase Total Protein Albumin Blood Type Antibody Screen Antibody Identification Crossmatch 03/12/19 03/12/19 03/12/19 22:00 22:00 22:00 WBC RBC Hgb Hct MCV MCH MCHC RDW Plt Count MPV Absolute Neuts (auto) Total Counted Neutrophils % Neutrophils % (Manual) Band Neutrophils % Lymphocytes % Lymphocytes % (Manual) Monocytes % Monocytes % (Manual) Eosinophils % Eosinophils % (Manual) Basophils % Basophils % (Manual) Myelocytes % (Man) Promyelocytes % (Man) Blast Cells % (Manual) Nucleated RBC % Metamyelocytes Hypochromia Platelet Estimate Polychromasia Poikilocytosis Anisocytosis Microcytosis Macrocytosis Spherocytes Target Cells Tear Drop Cells Ovalocytes [place] Cells Acanthocytes (Spur) PT with INR 12.50 INR 1.06 PTT (Actin FS) 26.6 Sodium 138 Potassium 3.9 Chloride 103 Carbon Dioxide 32 Anion Gap 4 L BUN 19.8 H Creatinine 0.7 Est GFR (CKD-EPI)AfAm 117.91 Est GFR (CKD-EPI)NonAf 101.74 POC Glucometer Random Glucose 324 H Lactic Acid 1.4 Calcium 7.7 L Phosphorus 2.5 Magnesium 1.7 L Total Bilirubin 1.2 H AST 36 ALT 17 Alkaline Phosphatase 101 Total Protein 3.9 L Albumin 1.6 L Blood Type Antibody Screen Antibody Identification Crossmatch 03/13/19 03/13/19 05:47 06:00 WBC 5.7 RBC 3.56 L Hgb 8.7 L Hct 26.4 L MCV 74.2 L MCH 24.5 L MCHC 33.0 RDW 23.9 H Plt Count 187 MPV 8.0 Absolute Neuts (auto) 4.9 Total Counted Neutrophils % 86.2 H Neutrophils % (Manual) Band Neutrophils % Lymphocytes % 9.1 D Lymphocytes % (Manual) Monocytes % 4.4 D Monocytes % (Manual) Eosinophils % 0.1 Eosinophils % (Manual) Basophils % 0.2 Basophils % (Manual) Myelocytes % (Man) Promyelocytes % (Man) Blast Cells % (Manual) Nucleated RBC % 0 Metamyelocytes Hypochromia Platelet Estimate Polychromasia Poikilocytosis Anisocytosis Microcytosis Macrocytosis Spherocytes Target Cells Tear Drop Cells Ovalocytes [place] Cells Acanthocytes (Spur) PT with INR INR PTT (Actin FS) Sodium Potassium Chloride Carbon Dioxide Anion Gap BUN Creatinine Est GFR (CKD-EPI)AfAm Est GFR (CKD-EPI)NonAf POC Glucometer 219 Random Glucose Lactic Acid Calcium Phosphorus Magnesium Total Bilirubin AST ALT Alkaline Phosphatase Total Protein Albumin Blood Type Antibody Screen Antibody Identification Crossmatch Active Medications Generic Name Dose Route Start Last Admin Trade Name Freq PRN Reason Stop Dose Admin Acetaminophen 1,000 mg 03/12/19 13:00 Ofirmev Injection - IVPB Q6H PRN PAIN LEVEL 1-5 Hydromorphone HCl 1 mg 03/12/19 13:00 03/12/19 15:15 Dilaudid Vial - IVPUSH 1 mg Q4H PRN Administration PAIN LEVEL 6-10 Hydromorphone HCl 10 mg 03/12/19 20:15 03/12/19 19:00 Hydromorphone 10 Mg/50 Ml-Ns TELEVISION REPORTER 03/19/19 20:02 10 mg TELEVISION REPORTER [facility] Administration Protocol Piperacillin Sod/Tazobactam 50 mls @ 100 mls/hr 03/12/19 18:00 Sod 3.375 gm/ Dextrose IVPB Q8H-IV [facility] Protocol Lactated Ringer's 1,000 ml in 1,000 mls @ 175 mls/hr 03/13/19 01:04 03/13/19 01:20 Lactated Ringers Solution IV 175 mls/hr ASDIR [facility] Administration Insulin Aspart 1 vial 03/12/19 16:30 03/13/19 06:32 Novolog Vial Sliding Scale - SQ 4 units ACHS [facility] Administration Protocol Ondansetron HCl 4 mg 03/11/19 20:31 03/13/19 04:16 Zofran Injection IVPUSH 4 mg Q6H PRN Administration NAUSEA AND/OR VOMITING Pantoprazole Sodium 40 mg 03/12/19 22:00 03/12/19 21:04 Protonix Iv IVPUSH 40 mg BID [facility] Administration ASSESSMENT/PLAN: Chest X-ray: Report Reviewed, Image Reviewed (appears to be pneumoperitonem, bibasilar atelectasis) Problem List - Problems (1) HLD (hyperlipidemia) Assessment/Plan: restart statin when taking PO Code(s): E78.5 - HYPERLIPIDEMIA, UNSPECIFIED (2) Left-sided weakness Assessment/Plan: PT eval OOB when no longer requiring ICU monitoring Code(s): R53.1 - WEAKNESS (3) History of open heart surgery Code(s): Z98.890 - OTHER SPECIFIED POSTPROCEDURAL STATES (4) Acute Crohn's disease Assessment/Plan: history of chrons followed at [facility], was suppose to start infliximab but never followed through GI consultation PPI Code(s): K50.90 - CROHN'S DISEASE, UNSPECIFIED, WITHOUT COMPLICATIONS (5) Gastroparesis Code(s): K31.84 - GASTROPARESIS (6) Abdominal pain Assessment/Plan: ofrimev for pain general surgery following NGT to [facility] for decompression zofran/reglan serial AXR Code(s): R10.9 - UNSPECIFIED ABDOMINAL PAIN Qualifiers: Abdominal location: generalized Qualified Code(s): R10.84 - Generalized abdominal pain (7) Small bowel obstruction Assessment/Plan: questionable evolving SBO GI/Gen surgery following Code(s): K56.609 - UNSP INTESTNL OBST, UNSP TO PARTIAL VERSUS COMPLETE OBST (8) Cerebrovascular accident (CVA) Assessment/Plan: left sided weakness PT to follow Code(s): I63.9 - CEREBRAL INFARCTION, UNSPECIFIED Qualifiers: CVA mechanism: unspecified Qualified Code(s): I63.9 - Cerebral infarction, unspecified (9) Chronic pain Code(s): G89.29 - OTHER CHRONIC PAIN Qualifiers: Chronic pain type: chronic pain syndrome Qualified Code(s): G89.4 - Chronic pain syndrome (10) Prophylactic measure Assessment/Plan: FEN NPO with NGT monitor electrolytes IVF, fluid resusitation in progress DVT heparin stopped over night Dispo requres ICU care full code discharge planning Code(s): Z29.9 - ENCOUNTER FOR PROPHYLACTIC MEASURES, UNSPECIFIED (11) Diabetes Assessment/Plan: BGM AC/HS with novolog sliding scale careful glycemic control with multiple episodes of DKA Code(s): E11.9 - TYPE 2 DIABETES MELLITUS WITHOUT COMPLICATIONS (12) Coffee ground emesis Assessment/Plan: PPI GI following NGT to [facility] Code(s): K92.0 - HEMATEMESIS Visit type - Emergency Visit Emergency Visit: Yes ED Registration Date: 03/09/19 Care time: The patient presented to the Emergency Department on the above date and was hospitalized for further evaluation of their emergent condition. - New Patient This patient is new to me today: Yes Date on this admission: 03/13/19 - Critical Care Critical Care patient: Yes Total Critical Care Time (in minutes): 50 Critical Care Statement: The care of this patient involved high complexity decision making to prevent further life threatening deterioration of the patient 's condition and/or to evaluate & treat vital organ system(s) failure or risk of failure.
[2019-03-13 08:27] LABS: ALBUMIN 1.6 g/dl (3.4-5.0); ALK PHOS 104 U/L (45-117); ANION GAP 8 MMOL/L (8-16); BILIRUBIN,TOTAL 0.7 mg/dL (0.2-1); BLOOD UREA NITROGEN 14.8 mg/dL (7-18); CALCIUM 7.6 mg/dL (8.5-10.1); CHLORIDE 104 mmol/L (98-107); CO2 28 mmol/L (21-32); CREATININE 0.6 mg/dL (0.55-1.3); GLUCOSE,RANDOM 222 mg/dL (74-106); PHOSPHOROUS 1.6 mg/dL (2.5-4.9); POTASSIUM 4.1 mmol/L (3.5-5.1); SGOT/AST 28 U/L (15-37); SGPT/ALT 16 U/L (13-61); SODIUM 139 mmol/L (136-145); TOT PROT 4.3 g/dl (6.4-8.2)
[2019-03-13] MEDS ORDERED: PT OWN MED DRAWER 7, Y5N ONE (09:06)
[2019-03-13] MEDS: PANTOPRAZOLE SODIUM 40 MG VIAL IVPUSH SCH ×2 (09:10→21:07)
[2019-03-13 09:17] LABS: ANISOCYTOSIS 2+; MACROCYTOSIS 1+; PLATELET ESTIMATE NORMAL
[2019-03-13] MEDS ORDERED: methylPREDNISolone NA SUCC 40 MG/1 ML VIAL IVPUSH SCH (10:00)
--- NOTE | 2019-03-13 10:06 | PN ---
Teaching Attending Note Name of Resident: Asif Fink ATTENDING PHYSICIAN STATEMENT I saw and evaluated the patient. I reviewed the resident's note and discussed the case with the resident. I agree with the resident's findings and plan as documented. SUBJECTIVE: Patient seen and examined in the ICU. Uncomfortable due to pain. POD #1: Ex lap due to pneumoperitoneum. Awake and alert. (+) Abdominal pain that is better with Dilaudid. No CP or SOB. Intake & Output 03/10/19 03/11/19 03/12/19 03/13/19 23:59 23:59 23:59 23:59 Intake Total 2950 7179 5621 3350 Output Total 300 854 850 290 Balance 2650 6325 4771 3060 Weight 124 lb 9.014 oz 124 lb Last Vital Signs Temp Pulse Resp BP Pulse Ox 97.7 F 88 14 120/77 93 L 03/13/19 09:00 03/13/19 09:00 03/13/19 09:00 03/13/19 09:00 03/13/19 09:00 Active Medications Acetaminophen (Ofirmev Injection -) 1,000 mg IVPB Q6H PRN PRN Reason: PAIN LEVEL 1-5 Hydromorphone HCl (Dilaudid Vial -) 1 mg IVPUSH Q4H PRN PRN Reason: PAIN LEVEL 6-10 Last Admin: 03/12/19 15:15 Dose: 1 mg Hydromorphone HCl (Hydromorphone 10 Mg/50 Ml-Ns) 10 mg REVENUE OFFICER REVENUE OFFICER [facility]; Protocol Stop: 03/19/19 20:02 Last Admin: 03/12/19 19:00 Dose: 10 mg Piperacillin Sod/Tazobactam (Sod 3.375 gm/ Dextrose) 50 mls @ 100 mls/hr IVPB Q8H-IV [facility]; Protocol Lactated Ringer's (Lactated Ringers Solution) 1,000 ml in 1,000 mls @ 175 mls/ hr IV ASDIR [facility] Last Admin: 03/13/19 09:13 Dose: 175 mls/hr Insulin Aspart (Novolog Vial Sliding Scale -) 1 vial SQ ACHS [facility]; Protocol Last Admin: 03/13/19 06:32 Dose: 4 units Ondansetron HCl (Zofran Injection) 4 mg IVPUSH Q6H PRN PRN Reason: NAUSEA AND/OR VOMITING Last Admin: 03/13/19 04:16 Dose: 4 mg Pantoprazole Sodium (Protonix Iv) 40 mg IVPUSH BID [facility] Last Admin: 03/13/19 09:10 Dose: 40 mg Potassium Phos/Sodium Phos (Phos-Nak Packet -) 1 packet PO ONCE ONE Stop: 03/13/19 10:16 GENERAL: Awake and alert, uncomfortable due to pain. HEAD: Normal with no signs of trauma. EYES: Pupils equal, round and reactive to light, extraocular movements intact, sclera anicteric, conjunctiva clear. EARS, NOSE, THROAT: Ears normal, nares patent, oropharynx clear without exudates. Moist mucous membranes. NECK: Normal range of motion, supple without lymphadenopathy, JVD, or masses. LUNGS: Breath sounds equal, clear to auscultation bilaterally. No wheezes, and no crackles. No accessory muscle use. HEART: Tachycardic, normal S1 and S2 without murmur, rub or gallop. ABDOMEN: Mild diffuse tenderness, Hypoactive BS. No guarding, no rebound. MUSCULOSKELETAL: Normal range of motion at all joints. No bony deformities or tenderness. No CVA tenderness. UPPER EXTREMITIES: 2+ pulses, warm, well-perfused. No cyanosis. No clubbing. Cap refill <2 seconds. No peripheral edema. LOWER EXTREMITIES: 2+ pulses, warm, well-perfused. No calf tenderness. No peripheral edema. NEUROLOGICAL: Non-focal SKIN: Warm, dry, normal turgor, no rashes or lesions noted. Laboratory Results - last 24 hr 03/10/19 03/12/19 03/12/19 07:20 06:00 11:57 WBC RBC Hgb Hct MCV MCH MCHC RDW Plt Count MPV Absolute Neuts (auto) Total Counted Neutrophils % Neutrophils % (Manual) 70.0 Band Neutrophils % 14.0 Lymphocytes % Lymphocytes % (Manual) 11.0 D Monocytes % Monocytes % (Manual) 3 L Eosinophils % Eosinophils % (Manual) 0.0 D Basophils % Basophils % (Manual) 0.0 Myelocytes % (Man) 0 Promyelocytes % (Man) 0 Blast Cells % (Manual) 0 Nucleated RBC % Metamyelocytes 1 D Hypochromia 1+ Platelet Estimate Normal Polychromasia 1+ Poikilocytosis 2+ Anisocytosis 2+ Microcytosis 1+ Macrocytosis 0 Spherocytes 1+ Target Cells 1+ Tear Drop Cells Ovalocytes 1+ [place] Cells 1+ Acanthocytes (Spur) 1+ PT with INR INR PTT (Actin FS) Sodium Potassium Chloride Carbon Dioxide Anion Gap BUN Creatinine Est GFR (CKD-EPI)AfAm Est GFR (CKD-EPI)NonAf POC Glucometer 255 Random Glucose Lactic Acid Calcium Phosphorus Magnesium Total Bilirubin AST ALT Alkaline Phosphatase Troponin I Total Protein Albumin Blood Type A NEGATIVE Antibody Screen Positive Antibody Identification Anti- d Crossmatch See Detail 03/12/19 03/12/19 03/12/19 15:20 21:09 22:00 WBC 3.4 L 3.5 L RBC 3.32 L 3.24 L Hgb 8.6 L 8.0 L Hct 26.1 L 24.1 L MCV 78.7 L 74.3 L MCH 26.0 24.6 L MCHC 33.0 33.1 RDW 18.9 H 23.3 H Plt Count 224 167 D MPV 8.1 7.8 Absolute Neuts (auto) 3.1 3.1 Total Counted 100 Neutrophils % 90.1 H 90.5 H Neutrophils % (Manual) 73.7 88.0 H Band Neutrophils % 3.0 3.0 Lymphocytes % 5.6 L D 6.7 L Lymphocytes % (Manual) 15.2 D 7.0 L D Monocytes % 3.6 L 2.3 L Monocytes % (Manual) 5 2 L Eosinophils % 0.1 0.2 D Eosinophils % (Manual) 0.0 Basophils % 0.6 0.3 Basophils % (Manual) 0.0 Myelocytes % (Man) 2 D Promyelocytes % (Man) 0 Blast Cells % (Manual) 0 Nucleated RBC % 0 1 H Metamyelocytes 0 D Hypochromia 2+ Platelet Estimate Normal Adequate Polychromasia 0 Poikilocytosis 1+ Anisocytosis 2+ 1+ Microcytosis 2+ 1+ Macrocytosis 0 Spherocytes Target Cells Tear Drop Cells 1+ Ovalocytes 1+ [place] Cells Acanthocytes (Spur) PT with INR INR PTT (Actin FS) Sodium Potassium Chloride Carbon Dioxide Anion Gap BUN Creatinine Est GFR (CKD-EPI)AfAm Est GFR (CKD-EPI)NonAf POC Glucometer 316 Random Glucose Lactic Acid Calcium Phosphorus Magnesium Total Bilirubin AST ALT Alkaline Phosphatase Troponin I Total Protein Albumin Blood Type Antibody Screen Antibody Identification Crossmatch 03/12/19 03/12/19 03/12/19 22:00 22:00 22:00 WBC RBC Hgb Hct MCV MCH MCHC RDW Plt Count MPV Absolute Neuts (auto) Total Counted Neutrophils % Neutrophils % (Manual) Band Neutrophils % Lymphocytes % Lymphocytes % (Manual) Monocytes % Monocytes % (Manual) Eosinophils % Eosinophils % (Manual) Basophils % Basophils % (Manual) Myelocytes % (Man) Promyelocytes % (Man) Blast Cells % (Manual) Nucleated RBC % Metamyelocytes Hypochromia Platelet Estimate Polychromasia Poikilocytosis Anisocytosis Microcytosis Macrocytosis Spherocytes Target Cells Tear Drop Cells Ovalocytes [place] Cells Acanthocytes (Spur) PT with INR 12.50 INR 1.06 PTT (Actin FS) 26.6 Sodium 138 Potassium 3.9 Chloride 103 Carbon Dioxide 32 Anion Gap 4 L BUN 19.8 H Creatinine 0.7 Est GFR (CKD-EPI)AfAm 117.91 Est GFR (CKD-EPI)NonAf 101.74 POC Glucometer Random Glucose 324 H Lactic Acid 1.4 Calcium 7.7 L Phosphorus 2.5 Magnesium 1.7 L Total Bilirubin 1.2 H AST 36 ALT 17 Alkaline Phosphatase 101 Troponin I Total Protein 3.9 L Albumin 1.6 L Blood Type Antibody Screen Antibody Identification Crossmatch 03/13/19 03/13/19 03/13/19 05:47 06:00 06:00 WBC 5.7 RBC 3.56 L Hgb 8.7 L Hct 26.4 L MCV 74.2 L MCH 24.5 L MCHC 33.0 RDW 23.9 H Plt Count 187 MPV 8.0 Absolute Neuts (auto) 4.9 Total Counted Neutrophils % 86.2 H Neutrophils % (Manual) 85.1 H Band Neutrophils % 0.0 Lymphocytes % 9.1 D Lymphocytes % (Manual) 11.7 D Monocytes % 4.4 D Monocytes % (Manual) 3 L Eosinophils % 0.1 Eosinophils % (Manual) 0.0 Basophils % 0.2 Basophils % (Manual) 0.0 Myelocytes % (Man) 0 D Promyelocytes % (Man) 0 Blast Cells % (Manual) 0 Nucleated RBC % 0 Metamyelocytes 0 Hypochromia 1+ Platelet Estimate Normal Polychromasia 1+ Poikilocytosis 1+ Anisocytosis 2+ Microcytosis 2+ Macrocytosis 1+ Spherocytes Target Cells Tear Drop Cells Ovalocytes [place] Cells Acanthocytes (Spur) PT with INR INR PTT (Actin FS) Sodium 139 Potassium 4.1 Chloride 104 Carbon Dioxide 28 Anion Gap 8 BUN 14.8 Creatinine 0.6 Est GFR (CKD-EPI)AfAm 124.05 Est GFR (CKD-EPI)NonAf 107.03 POC Glucometer 219 Random Glucose 222 H Lactic Acid Calcium 7.6 L Phosphorus 1.6 L Magnesium 2.0 Total Bilirubin 0.7 AST 28 ALT 16 Alkaline Phosphatase 104 Troponin I < 0.02 Total Protein 4.3 L Albumin 1.6 L Blood Type Antibody Screen Antibody Identification Crossmatch ASSESSMENT/PLAN: POD#1: S/P exploratory laparotomy, lysis of adhesions, segmental resection of small intestinal perforation with side-side stapled anastomosis, abdominal washout, resection of portion of omentum History of inflammatory bowel disease Type I IDDM, frequent admissions for DKA PE on Xarelto HTN HLD CVA with mild left-sided weakness NGT NPO IVF ABX per ID Continued ICU monitoring Dr Otero Critical care time spent in reviewing chart, evaluating patient and formulating plan - 36 minutes.
--- NOTE | 2019-03-13 10:12 | PN ---
Physical Exam: SUBJECTIVE: Patient seen and examined in ICU. Patient developed perforation and was taken to OR by Dr Krishnamurthy. Given 4U PRBC and 2U FFP. Started on CARBON SEQUESTRATION PLANT MANAGER pump. Urine output 3.1L yesterday. Patient complains of pain to her abdomen and pain with breathing. OBJECTIVE: Vital Signs Period Temp Pulse Resp BP Sys/Rapp Pulse Ox Last 24 Hr 97.7 F-98.8 F 73-110 12-24 96-141/63-88 90-100 GENERAL: The patient is awake, alert, and fully oriented, HEAD: Normal with no signs of trauma. EYES: PERRL, extraocular movements intact ENT: Ears normal, nares patent, oropharynx clear without exudates, moist mucous membranes. NECK: Trachea midline, full range of motion, supple. LUNGS: Breath sounds equal, clear to auscultation bilaterally HEART: Regular rate and rhythm, S1, S2 without murmur, rub or gallop. ABDOMEN: Soft, diffusely tender, intact surgical wound without signs of infection EXTREMITIES: 2+ pulses, warm, well-perfused, no edema. NEUROLOGICAL: Cranial nerves II through XII grossly intact. Normal speech, moves all extremities Laboratory Results - last 24 hr 03/10/19 03/12/19 03/12/19 07:20 06:00 11:57 WBC RBC Hgb Hct MCV MCH MCHC RDW Plt Count MPV Absolute Neuts (auto) Total Counted Neutrophils % Neutrophils % (Manual) 70.0 Band Neutrophils % 14.0 Lymphocytes % Lymphocytes % (Manual) 11.0 D Monocytes % Monocytes % (Manual) 3 L Eosinophils % Eosinophils % (Manual) 0.0 D Basophils % Basophils % (Manual) 0.0 Myelocytes % (Man) 0 Promyelocytes % (Man) 0 Blast Cells % (Manual) 0 Nucleated RBC % Metamyelocytes 1 D Hypochromia 1+ Platelet Estimate Normal Polychromasia 1+ Poikilocytosis 2+ Anisocytosis 2+ Microcytosis 1+ Macrocytosis 0 Spherocytes 1+ Target Cells 1+ Tear Drop Cells Ovalocytes 1+ Mershon Cells 1+ Acanthocytes (Spur) 1+ PT with INR INR PTT (Actin FS) Sodium Potassium Chloride Carbon Dioxide Anion Gap BUN Creatinine Est GFR (CKD-EPI)AfAm Est GFR (CKD-EPI)NonAf POC Glucometer 255 Random Glucose Lactic Acid Calcium Phosphorus Magnesium Total Bilirubin AST ALT Alkaline Phosphatase Troponin I Total Protein Albumin Blood Type A NEGATIVE Antibody Screen Positive Antibody Identification Anti- d Crossmatch See Detail 03/12/19 03/12/19 03/12/19 15:20 21:09 22:00 WBC 3.4 L 3.5 L RBC 3.32 L 3.24 L Hgb 8.6 L 8.0 L Hct 26.1 L 24.1 L MCV 78.7 L 74.3 L MCH 26.0 24.6 L MCHC 33.0 33.1 RDW 18.9 H 23.3 H Plt Count 224 167 D MPV 8.1 7.8 Absolute Neuts (auto) 3.1 3.1 Total Counted 100 Neutrophils % 90.1 H 90.5 H Neutrophils % (Manual) 73.7 88.0 H Band Neutrophils % 3.0 3.0 Lymphocytes % 5.6 L D 6.7 L Lymphocytes % (Manual) 15.2 D 7.0 L D Monocytes % 3.6 L 2.3 L Monocytes % (Manual) 5 2 L Eosinophils % 0.1 0.2 D Eosinophils % (Manual) 0.0 Basophils % 0.6 0.3 Basophils % (Manual) 0.0 Myelocytes % (Man) 2 D Promyelocytes % (Man) 0 Blast Cells % (Manual) 0 Nucleated RBC % 0 1 H Metamyelocytes 0 D Hypochromia 2+ Platelet Estimate Normal Adequate Polychromasia 0 Poikilocytosis 1+ Anisocytosis 2+ 1+ Microcytosis 2+ 1+ Macrocytosis 0 Spherocytes Target Cells Tear Drop Cells 1+ Ovalocytes 1+ Mershon Cells Acanthocytes (Spur) PT with INR INR PTT (Actin FS) Sodium Potassium Chloride Carbon Dioxide Anion Gap BUN Creatinine Est GFR (CKD-EPI)AfAm Est GFR (CKD-EPI)NonAf POC Glucometer 316 Random Glucose Lactic Acid Calcium Phosphorus Magnesium Total Bilirubin AST ALT Alkaline Phosphatase Troponin I Total Protein Albumin Blood Type Antibody Screen Antibody Identification Crossmatch 03/12/19 03/12/19 03/12/19 22:00 22:00 22:00 WBC RBC Hgb Hct MCV MCH MCHC RDW Plt Count MPV Absolute Neuts (auto) Total Counted Neutrophils % Neutrophils % (Manual) Band Neutrophils % Lymphocytes % Lymphocytes % (Manual) Monocytes % Monocytes % (Manual) Eosinophils % Eosinophils % (Manual) Basophils % Basophils % (Manual) Myelocytes % (Man) Promyelocytes % (Man) Blast Cells % (Manual) Nucleated RBC % Metamyelocytes Hypochromia Platelet Estimate Polychromasia Poikilocytosis Anisocytosis Microcytosis Macrocytosis Spherocytes Target Cells Tear Drop Cells Ovalocytes Jose Antonio Cells Acanthocytes (Spur) PT with INR 12.50 INR 1.06 PTT (Actin FS) 26.6 Sodium 138 Potassium 3.9 Chloride 103 Carbon Dioxide 32 Anion Gap 4 L BUN 19.8 H Creatinine 0.7 Est GFR (CKD-EPI)AfAm 117.91 Est GFR (CKD-EPI)NonAf 101.74 POC Glucometer Random Glucose 324 H Lactic Acid 1.4 Calcium 7.7 L Phosphorus 2.5 Magnesium 1.7 L Total Bilirubin 1.2 H AST 36 ALT 17 Alkaline Phosphatase 101 Troponin I Total Protein 3.9 L Albumin 1.6 L Blood Type Antibody Screen Antibody Identification Crossmatch 03/13/19 03/13/19 03/13/19 05:47 06:00 06:00 WBC 5.7 RBC 3.56 L Hgb 8.7 L Hct 26.4 L MCV 74.2 L MCH 24.5 L MCHC 33.0 RDW 23.9 H Plt Count 187 MPV 8.0 Absolute Neuts (auto) 4.9 Total Counted Neutrophils % 86.2 H Neutrophils % (Manual) 85.1 H Band Neutrophils % 0.0 Lymphocytes % 9.1 D Lymphocytes % (Manual) 11.7 D Monocytes % 4.4 D Monocytes % (Manual) 3 L Eosinophils % 0.1 Eosinophils % (Manual) 0.0 Basophils % 0.2 Basophils % (Manual) 0.0 Myelocytes % (Man) 0 D Promyelocytes % (Man) 0 Blast Cells % (Manual) 0 Nucleated RBC % 0 Metamyelocytes 0 Hypochromia 1+ Platelet Estimate Normal Polychromasia 1+ Poikilocytosis 1+ Anisocytosis 2+ Microcytosis 2+ Macrocytosis 1+ Spherocytes Target Cells Tear Drop Cells Ovalocytes Jose Antonio Cells Acanthocytes (Spur) PT with INR INR PTT (Actin FS) Sodium 139 Potassium 4.1 Chloride 104 Carbon Dioxide 28 Anion Gap 8 BUN 14.8 Creatinine 0.6 Est GFR (CKD-EPI)AfAm 124.05 Est GFR (CKD-EPI)NonAf 107.03 POC Glucometer 219 Random Glucose 222 H Lactic Acid Calcium 7.6 L Phosphorus 1.6 L Magnesium 2.0 Total Bilirubin 0.7 AST 28 ALT 16 Alkaline Phosphatase 104 Troponin I < 0.02 Total Protein 4.3 L Albumin 1.6 L Blood Type Antibody Screen Antibody Identification Crossmatch Active Medications Generic Name Dose Route Start Last Admin Trade Name Freq PRN Reason Stop Dose Admin Acetaminophen 1,000 mg 03/12/19 13:00 Ofirmev Injection - IVPB Q6H PRN PAIN LEVEL 1-5 Hydromorphone HCl 1 mg 03/12/19 13:00 03/12/19 15:15 Dilaudid Vial - IVPUSH 1 mg Q4H PRN Administration PAIN LEVEL 6-10 Hydromorphone HCl 10 mg 03/12/19 20:15 03/12/19 19:00 Hydromorphone 10 Mg/50 Ml-Ns [employer] MANAGER 03/19/19 20:02 10 mg [employer]ANT MANAGER [facility] Administration Protocol Piperacillin Sod/Tazobactam 50 mls @ 100 mls/hr 03/12/19 18:00 Sod 3.375 gm/ Dextrose IVPB Q8H-IV [facility] Protocol Lactated Ringer's 1,000 ml in 1,000 mls @ 175 mls/hr 03/13/19 01:04 03/13/19 09:13 Lactated Ringers Solution IV 175 mls/hr ASDIR [facility] Administration Insulin Aspart 1 vial 03/12/19 16:30 03/13/19 06:32 Novolog Vial Sliding Scale - SQ 4 units ACHS [facility] Administration Protocol Ondansetron HCl 4 mg 03/11/19 20:31 03/13/19 04:16 Zofran Injection IVPUSH 4 mg Q6H PRN Administration NAUSEA AND/OR VOMITING Pantoprazole Sodium 40 mg 03/12/19 22:00 03/13/19 09:10 Protonix Iv IVPUSH 40 mg BID [facility] Administration Potassium Phos/Sodium Phos 1 packet 03/13/19 10:15 Phos-Nak Packet - PO 03/13/19 10:16 ONCE ONE ASSESSMENT/PLAN: Patient is a 48F with history of Type I IDDM, PE (on xarelto), frequent admissions for DKA, HTN, HLD, CVA with left-sided weakness, recent hospitalization at [facility] September 2018 for SBO here today with SBO. Vitals signs stable after arrival. Patient later developed a perforation with pneumoperitoneum, s/p ex-lap. #Neuro - Pain control with dilaudid [employer] MANAGER - Tylenol for pain/fever control #CV-> sinus tachy (resolved) - No longer hypotensive or tachycardic - d/c'ed heparin drip due to coffee ground emesis and not on xarelto at this time. #GI-> Chron's flair likely and pneumoperitoneum - Abdominal XR unclearly showing Pneumoperitoneum, CT abd/pelvis showing pneumoperitoneum. - S/P ex/lap - NPO, ng tube set to suction for decompression. Maroon colored fluid. - Surgery taking pt to OR for repair of pneumoperitoneum. - Will continue zosyn - continue steroids IV for chron's flare, which may be cause of hyperglycemia #ID - On zosyn for GI abhijit coverage - IV LR 175cc #FEN - 175cc/hr LR - NPO, NGT decompression - Lytes in AM, replete PRN PPx: SCD's Visit type - Emergency Visit Emergency Visit: Yes ED Registration Date: 03/09/19 Care time: The patient presented to the Emergency Department on the above date and was hospitalized for further evaluation of their emergent condition. - New Patient This patient is new to me today: No - Critical Care Critical Care patient: Yes Total Critical Care Time (in minutes): 35 Critical Care Statement: The care of this patient involved high complexity decision making to prevent further life threatening deterioration of the patient 's condition and/or to evaluate & treat vital organ system(s) failure or risk of failure. ATTENDING PHYSICIAN STATEMENT I saw and evaluated the patient. I reviewed the resident's note and discussed the case with the resident. I agree with the resident's findings and plan as documented. SUBJECTIVE: OBJECTIVE: ASSESSMENT AND PLAN:
[2019-03-13] MEDS ORDERED: PIPERACILLIN/TAZOB 3.375 GM 3.375 GM in DEXTROSE 5%-WATER - 50 ML IVPB ONE (10:13)
[2019-03-13] MEDS ORDERED: NAPH,MB-DB/K PH,MBDB POWDER PACKET PO ONE (10:15)
[2019-03-13] MEDS ORDERED: DEXTROSE 5%-WATER - 50 ML IVPB ONE ×2 (10:47→17:34)
[2019-03-13] MEDS ORDERED: PIPERACILLIN/TAZOBACTAM 3.375 GM VIAL IVPB ONE ×2 (10:47→17:34)
[2019-03-13] MEDS ORDERED: POTASSIUM PHOSPHATE 30 MM in SODIUM CHLORIDE 250 ML IVPB ONE (11:00)
--- NOTE | 2019-03-13 11:08 | PN.GI ---
GI Progress Note Subjective: Extubated POD 1 exploratory laparotomy, lysis of adhesions, segmental resection of small intestinal perforation (mid ileum) with side-side stapled anastomosis, abdominal washout, resection of portion of omentum. Fiance present at bedside. Ms. Rosas has been on Prednisone since at least November, has not seen Dr. Chadwick since that time. Apparently was admitted to hospital at [facility] around for DKA. Complains of abdominal pain - Objective Vital Signs: Vital Signs Temperature 97.7 F 03/13/19 09:00 Pulse Rate 87 03/13/19 10:00 Respiratory Rate 15 03/13/19 10:00 Blood Pressure 115/74 03/13/19 10:00 O2 Sat by Pulse Oximetry (%) 94 L 03/13/19 09:00 Constitutional: Calm Eyes: No: Sclera Icterus Cardiovascular: Yes: Regular Rate and Rhythm Respiratory: Yes: Diminished (at bedside bilaterally with poor insp effort) Gastrointestinal Inspection: No: Distention ...Auscultate: Yes: Normoactive Bowel Sounds ...Palpate: Yes: Soft, Tenderness (Diffusely) ...Percussion: No: Tympanitic Edema: No ( No LE edema) Neurological: Yes: Alert Labs: CBC, BMP 03/13/19 06:00 03/13/19 06:00 INR, PTT INR 1.06 (0.83-1.09) 03/12/19 22:00 Hepatic Panel Total Bilirubin 0.7 mg/dL (0.2-1) 03/13/19 06:00 AST 28 U/L (15-37) 03/13/19 06:00 ALT 16 U/L (13-61) 03/13/19 06:00 Alkaline Phosphatase 104 U/L (45-117) 03/13/19 06:00 Albumin 1.6 g/dl (3.4-5.0) L 03/13/19 06:00 Problem List - Problems (1) Abdominal pain Assessment/Plan: Perforated ileum with resection as noted above Will need definitieve therapy for her Crohn's disease when her acute issues are resolved. Given the complicated nature of her disease adn comorbidities, this will be best served at an IBD center. Prior to discharge, follow-up should be arranged with her wealth management advisor Dr. Chadwick at [facility]. D/W Dr. Otero, will continue Methylprednisolone 40mg daily for now given that she states being on prednisone chcf prior to her admission Part of the treatment of her Crohn's will also need to be smoking cessation as this can exacerbate her disease. Explained this to patient and her fiance Daily labs Post op care per surgery Code(s): R10.9 - UNSPECIFIED ABDOMINAL PAIN Qualifiers: Abdominal location: generalized Qualified Code(s): R10.84 - Generalized abdominal pain
--- NOTE | 2019-03-13 11:38 | PN ---
Progress Note, Physician History of Present Illness: Pt seen and examined, chart reviewed, events noted. She is alert, afebrile, complaining of abdominal pain but in no acute distress. s/p Ex-lap, RAYSHAWN, partial SB resection with anastomosis/ partial omental resection POD #1. - Current Medication List Current Medications: Active Medications Acetaminophen (Ofirmev Injection -) 1,000 mg IVPB Q6H PRN PRN Reason: PAIN LEVEL 1-5 Hydromorphone HCl (Dilaudid Vial -) 1 mg IVPUSH Q4H PRN PRN Reason: PAIN LEVEL 6-10 Last Admin: 03/12/19 15:15 Dose: 1 mg Hydromorphone HCl (Hydromorphone 10 Mg/50 Ml-Ns) 10 mg PIPE FINISHING SUPERVISOR PIPE FINISHING SUPERVISOR [facility]; Protocol Stop: 03/19/19 20:02 Last Admin: 03/12/19 19:00 Dose: 10 mg Piperacillin Sod/Tazobactam (Sod 3.375 gm/ Dextrose) 50 mls @ 100 mls/hr IVPB Q8H-IV [facility]; Protocol Lactated Ringer's (Lactated Ringers Solution) 1,000 ml in 1,000 mls @ 175 mls/ hr IV ASDIR [facility] Last Admin: 03/13/19 09:13 Dose: 175 mls/hr Potassium Phosphate 30 mm/ (Sodium Chloride) 260 mls @ 43.333 mls/hr IVPB ONCE ONE Stop: 03/13/19 16:59 Insulin Aspart (Novolog Vial Sliding Scale -) 1 vial SQ ACHS [facility]; Protocol Last Admin: 03/13/19 11:00 Dose: 2 units Methylprednisolone Sodium Succinate (Solu-Medrol -) 40 mg IVPUSH DAILY [facility] Ondansetron HCl (Zofran Injection) 4 mg IVPUSH Q6H PRN PRN Reason: NAUSEA AND/OR VOMITING Last Admin: 03/13/19 04:16 Dose: 4 mg Pantoprazole Sodium (Protonix Iv) 40 mg IVPUSH BID [facility] Last Admin: 03/13/19 09:10 Dose: 40 mg - Objective Vital Signs: Vital Signs Temperature 97.7 F 03/13/19 09:00 Pulse Rate 87 03/13/19 10:00 Respiratory Rate 15 03/13/19 10:00 Blood Pressure 115/74 03/13/19 10:00 O2 Sat by Pulse Oximetry (%) 94 L 03/13/19 09:00 Constitutional: Yes: No Distress Eyes: Yes: Conjunctiva Clear Neck: Yes: Supple Cardiovascular: Yes: Regular Rate and Rhythm Respiratory: Yes: CTA Bilaterally Gastrointestinal: Yes: Soft, Tenderness Genitourinary: Yes: Lott Present Extremities: Yes: WNL Integumentary: Yes: WNL Wound/Incision: Yes: Dressing Dry and Intact Neurological: Yes: Alert, Oriented Psychiatric: Yes: Alert Labs: CBC, BMP 03/13/19 06:00 03/13/19 06:00 INR, PTT INR 1.06 (0.83-1.09) 03/12/19 22:00 Laboratory Results - last 24 hr 03/10/19 03/12/19 03/12/19 07:20 06:00 11:57 WBC RBC Hgb Hct MCV MCH MCHC RDW Plt Count MPV Absolute Neuts (auto) Total Counted Neutrophils % Neutrophils % (Manual) 70.0 Band Neutrophils % 14.0 Lymphocytes % Lymphocytes % (Manual) 11.0 D Monocytes % Monocytes % (Manual) 3 L Eosinophils % Eosinophils % (Manual) 0.0 D Basophils % Basophils % (Manual) 0.0 Myelocytes % (Man) 0 Promyelocytes % (Man) 0 Blast Cells % (Manual) 0 Nucleated RBC % Metamyelocytes 1 D Hypochromia 1+ Platelet Estimate Normal Polychromasia 1+ Poikilocytosis 2+ Anisocytosis 2+ Microcytosis 1+ Macrocytosis 0 Spherocytes 1+ Target Cells 1+ Tear Drop Cells Ovalocytes 1+ Shafer Cells 1+ Acanthocytes (Spur) 1+ PT with INR INR PTT (Actin FS) Sodium Potassium Chloride Carbon Dioxide Anion Gap BUN Creatinine Est GFR (CKD-EPI)AfAm Est GFR (CKD-EPI)NonAf POC Glucometer 255 Random Glucose Lactic Acid Calcium Phosphorus Magnesium Total Bilirubin AST ALT Alkaline Phosphatase Troponin I Total Protein Albumin Blood Type A NEGATIVE Antibody Screen Positive Antibody Identification Anti- d Crossmatch See Detail 03/12/19 03/12/19 03/12/19 15:20 21:09 22:00 WBC 3.4 L 3.5 L RBC 3.32 L 3.24 L Hgb 8.6 L 8.0 L Hct 26.1 L 24.1 L MCV 78.7 L 74.3 L MCH 26.0 24.6 L MCHC 33.0 33.1 RDW 18.9 H 23.3 H Plt Count 224 167 D MPV 8.1 7.8 Absolute Neuts (auto) 3.1 3.1 Total Counted 100 Neutrophils % 90.1 H 90.5 H Neutrophils % (Manual) 73.7 88.0 H Band Neutrophils % 3.0 3.0 Lymphocytes % 5.6 L D 6.7 L Lymphocytes % (Manual) 15.2 D 7.0 L D Monocytes % 3.6 L 2.3 L Monocytes % (Manual) 5 2 L Eosinophils % 0.1 0.2 D Eosinophils % (Manual) 0.0 Basophils % 0.6 0.3 Basophils % (Manual) 0.0 Myelocytes % (Man) 2 D Promyelocytes % (Man) 0 Blast Cells % (Manual) 0 Nucleated RBC % 0 1 H Metamyelocytes 0 D Hypochromia 2+ Platelet Estimate Normal Adequate Polychromasia 0 Poikilocytosis 1+ Anisocytosis 2+ 1+ Microcytosis 2+ 1+ Macrocytosis 0 Spherocytes Target Cells Tear Drop Cells 1+ Ovalocytes 1+ Jose Antonio Cells Acanthocytes (Spur) PT with INR INR PTT (Actin FS) Sodium Potassium Chloride Carbon Dioxide Anion Gap BUN Creatinine Est GFR (CKD-EPI)AfAm Est GFR (CKD-EPI)NonAf POC Glucometer 316 Random Glucose Lactic Acid Calcium Phosphorus Magnesium Total Bilirubin AST ALT Alkaline Phosphatase Troponin I Total Protein Albumin Blood Type Antibody Screen Antibody Identification Crossmatch 03/12/19 03/12/19 03/12/19 22:00 22:00 22:00 WBC RBC Hgb Hct MCV MCH MCHC RDW Plt Count MPV Absolute Neuts (auto) Total Counted Neutrophils % Neutrophils % (Manual) Band Neutrophils % Lymphocytes % Lymphocytes % (Manual) Monocytes % Monocytes % (Manual) Eosinophils % Eosinophils % (Manual) Basophils % Basophils % (Manual) Myelocytes % (Man) Promyelocytes % (Man) Blast Cells % (Manual) Nucleated RBC % Metamyelocytes Hypochromia Platelet Estimate Polychromasia Poikilocytosis Anisocytosis Microcytosis Macrocytosis Spherocytes Target Cells Tear Drop Cells Ovalocytes Shafer Cells Acanthocytes (Spur) PT with INR 12.50 INR 1.06 PTT (Actin FS) 26.6 Sodium 138 Potassium 3.9 Chloride 103 Carbon Dioxide 32 Anion Gap 4 L BUN 19.8 H Creatinine 0.7 Est GFR (CKD-EPI)AfAm 117.91 Est GFR (CKD-EPI)NonAf 101.74 POC Glucometer Random Glucose 324 H Lactic Acid 1.4 Calcium 7.7 L Phosphorus 2.5 Magnesium 1.7 L Total Bilirubin 1.2 H AST 36 ALT 17 Alkaline Phosphatase 101 Troponin I Total Protein 3.9 L Albumin 1.6 L Blood Type Antibody Screen Antibody Identification Crossmatch 03/13/19 03/13/19 03/13/19 05:47 06:00 06:00 WBC 5.7 RBC 3.56 L Hgb 8.7 L Hct 26.4 L MCV 74.2 L MCH 24.5 L MCHC 33.0 RDW 23.9 H Plt Count 187 MPV 8.0 Absolute Neuts (auto) 4.9 Total Counted Neutrophils % 86.2 H Neutrophils % (Manual) 85.1 H Band Neutrophils % 0.0 Lymphocytes % 9.1 D Lymphocytes % (Manual) 11.7 D Monocytes % 4.4 D Monocytes % (Manual) 3 L Eosinophils % 0.1 Eosinophils % (Manual) 0.0 Basophils % 0.2 Basophils % (Manual) 0.0 Myelocytes % (Man) 0 D Promyelocytes % (Man) 0 Blast Cells % (Manual) 0 Nucleated RBC % 0 Metamyelocytes 0 Hypochromia 1+ Platelet Estimate Normal Polychromasia 1+ Poikilocytosis 1+ Anisocytosis 2+ Microcytosis 2+ Macrocytosis 1+ Spherocytes Target Cells Tear Drop Cells Ovalocytes Shafer Cells Acanthocytes (Spur) PT with INR INR PTT (Actin FS) Sodium 139 Potassium 4.1 Chloride 104 Carbon Dioxide 28 Anion Gap 8 BUN 14.8 Creatinine 0.6 Est GFR (CKD-EPI)AfAm 124.05 Est GFR (CKD-EPI)NonAf 107.03 POC Glucometer 219 Random Glucose 222 H Lactic Acid Calcium 7.6 L Phosphorus 1.6 L Magnesium 2.0 Total Bilirubin 0.7 AST 28 ALT 16 Alkaline Phosphatase 104 Troponin I < 0.02 Total Protein 4.3 L Albumin 1.6 L Blood Type Antibody Screen Antibody Identification Crossmatch 03/13/19 10:57 WBC RBC Hgb Hct MCV MCH MCHC RDW Plt Count MPV Absolute Neuts (auto) Total Counted Neutrophils % Neutrophils % (Manual) Band Neutrophils % Lymphocytes % Lymphocytes % (Manual) Monocytes % Monocytes % (Manual) Eosinophils % Eosinophils % (Manual) Basophils % Basophils % (Manual) Myelocytes % (Man) Promyelocytes % (Man) Blast Cells % (Manual) Nucleated RBC % Metamyelocytes Hypochromia Platelet Estimate Polychromasia Poikilocytosis Anisocytosis Microcytosis Macrocytosis Spherocytes Target Cells Tear Drop Cells Ovalocytes Jose Antonio Cells Acanthocytes (Spur) PT with INR INR PTT (Actin FS) Sodium Potassium Chloride Carbon Dioxide Anion Gap BUN Creatinine Est GFR (CKD-EPI)AfAm Est GFR (CKD-EPI)NonAf POC Glucometer 175 Random Glucose Lactic Acid Calcium Phosphorus Magnesium Total Bilirubin AST ALT Alkaline Phosphatase Troponin I Total Protein Albumin Blood Type Antibody Screen Antibody Identification Crossmatch Microbiology 03/10/19 08:30 Blood - Arterial Blood Culture - Preliminary NO GROWTH OBTAINED AFTER 72 HOURS, INCUBATION TO CONTINUE FOR 2 DAYS. 03/10/19 08:00 Blood - Arterial Blood Culture - Preliminary NO GROWTH OBTAINED AFTER 72 HOURS, INCUBATION TO CONTINUE FOR 2 DAYS. 03/09/19 17:00 Urine - Urine Clean Catch Urine Culture - Preliminary Group D Strep Or Entero Coccus - ....Imaging X-ray: Report Reviewed Problem List - Problems (1) Diabetes Code(s): E11.9 - TYPE 2 DIABETES MELLITUS WITHOUT COMPLICATIONS (2) HLD (hyperlipidemia) Code(s): E78.5 - HYPERLIPIDEMIA, UNSPECIFIED (3) HTN (hypertension) Code(s): I10 - ESSENTIAL (PRIMARY) HYPERTENSION (4) Crohn's disease Code(s): K50.90 - CROHN'S DISEASE, UNSPECIFIED, WITHOUT COMPLICATIONS (5) Cerebrovascular accident (CVA) Code(s): I63.9 - CEREBRAL INFARCTION, UNSPECIFIED Qualifiers: CVA mechanism: unspecified Qualified Code(s): I63.9 - Cerebral infarction, unspecified (6) Diabetes mellitus, insulin dependent (IDDM), uncontrolled Code(s): E10.65 - TYPE 1 DIABETES MELLITUS WITH HYPERGLYCEMIA Assessment/Plan 48 y.o. female with PMH of uncontrolled IDDM and DKA, Crohn's disease on prednisone, CVA, PE, HTN, HLD presenting with abdominal pain Pneumoperitoneum SB perforation s/p Ex-lap/RAYSHAWN/partial SB and omental resection with anastomosis/ washout POD#1 Crohn's disease IDDM Hx of multiple DKA Hx of CVA Hx of PE HTN HLD -- continue Zosyn empirically -- follow up peritoneal fluid cultures pending -- Blood cultures neg -- pain control -- continue monitor vitals
[2019-03-13] MEDS: methylPREDNISolone NA SUCC 40 MG/1 ML VIAL IVPUSH SCH (12:22)
[2019-03-13] MEDS ORDERED: LACTATED RINGERS SOLUTION 1,000 ML/1,000 ML INFUS.BAG IV STA (12:51)
[2019-03-13] MEDS: HYDROmorphone *PCA* 10MG/50ML DISP.SYRIN PCA SCH (15:11)
[2019-03-13] MEDS: ACETAMINOPHEN 1000 MG/100 ML VIAL (NON FORMULARY) IVPB PRN (21:07)
[2019-03-13] MEDS ORDERED: INSULIN (NOVOLOG) ASPART 100 UNITS/ML 10ML VIAL ONE (21:30)
[2019-03-14] MEDS ORDERED: ALBUTEROL SO4 2.5/IPRATROPIUM 0.5 INH SOL 3 ML VIAL.NEB. NEB ONE (00:28)
[2019-03-14] MEDS ORDERED: DEXTROSE 5%-WATER - 50 ML IVPB ONE ×3 (03:35→17:49)
[2019-03-14] MEDS ORDERED: PIPERACILLIN/TAZOBACTAM 3.375 GM VIAL IVPB ONE ×3 (03:35→17:49)
[2019-03-14] MEDS: PIPERACILLIN/TAZOB 3.375 GM 3.375 GM in DEXTROSE 5%-WATER - 50 ML IVPB SCH ×3 (03:39→18:06)
[2019-03-14] MEDS: LACTATED RINGERS SOLUTION 1,000 ML/1,000 ML INFUS.BAG IV SCH (03:39)
[2019-03-14] MEDS: HYDROmorphone *PCA* 10MG/50ML DISP.SYRIN PCA SCH ×4 (03:46→23:00)
[2019-03-14] MEDS: ONDANSETRON 4 MG/2 ML VIAL IVPUSH PRN (05:07)
[2019-03-14] MEDS: ACETAMINOPHEN 1000 MG/100 ML VIAL (NON FORMULARY) IVPB PRN (05:08)
[2019-03-14] MEDS: INSULIN SLIDING SCALE (NOVOLOG) 1 VIAL SQ SCH ×4 (06:52→21:19)
--- NOTE | 2019-03-14 07:09 | PN ---
Progress Note, Physician Chief Complaint: s/p ex lap under general anesthesia History of Present Illness: post op day one, spray gun striper for pain control - Current Medication List Current Medications: Active Medications Hydromorphone HCl (Dilaudid Vial -) 1 mg IVPUSH Q4H PRN PRN Reason: PAIN LEVEL 6-10 Last Admin: 03/12/19 15:15 Dose: 1 mg Hydromorphone HCl (Hydromorphone 10 Mg/50 Ml-Ns) 10 mg FORGING ENGINEER FORGING ENGINEER [facility]; Protocol Stop: 03/19/19 20:02 Last Admin: 03/14/19 03:46 Dose: Not Given Piperacillin Sod/Tazobactam (Sod 3.375 gm/ Dextrose) 50 mls @ 100 mls/hr IVPB Q8H-IV [facility]; Protocol Last Admin: 03/14/19 03:39 Dose: 100 mls/hr Lactated Ringer's (Lactated Ringers Solution) 1,000 ml in 1,000 mls @ 175 mls/ hr IV ASDIR [facility] Last Admin: 03/14/19 03:39 Dose: 175 mls/hr Insulin Aspart (Novolog Vial Sliding Scale -) 1 vial SQ ACHS [facility]; Protocol Last Admin: 03/14/19 06:52 Dose: 4 units Methylprednisolone Sodium Succinate (Solu-Medrol -) 40 mg IVPUSH DAILY [facility] Last Admin: 03/13/19 12:22 Dose: 40 mg Ondansetron HCl (Zofran Injection) 4 mg IVPUSH Q6H PRN PRN Reason: NAUSEA AND/OR VOMITING Last Admin: 03/14/19 05:07 Dose: 4 mg Pantoprazole Sodium (Protonix Iv) 40 mg IVPUSH BID [facility] Last Admin: 03/13/19 21:07 Dose: 40 mg - Objective Vital Signs: Vital Signs Temperature 98 F 03/14/19 06:00 Pulse Rate 106 H 03/14/19 06:00 Respiratory Rate 16 03/14/19 06:00 Blood Pressure 104/67 03/14/19 06:00 O2 Sat by Pulse Oximetry (%) 91 L 03/14/19 06:00 Constitutional: Yes: Well Nourished Cardiovascular: Yes: WNL Respiratory: Yes: WNL Gastrointestinal: Yes: WNL Neurological: Yes: Confusion Labs: CBC, BMP 03/13/19 06:00 03/13/19 06:00 INR, PTT INR 1.06 (0.83-1.09) 03/12/19 22:00 Assessment/Plan No apparent anesthetic complications. patient complaining of pain but appeared to be confused under the influence of narcotic. Tod recommend use of non narcotic analgesia as adjunct to FORGING ENGINEER, will continue FORGING ENGINEER until patient takes PO.
[2019-03-14 07:39] LABS: BASO % 1.4 % (0-2.0); EOS % 1.2 % (0-4.5); HEMATOCRIT 27.7 % (32.4-45.2); LYMPH % 31.3 % (8-40); MCH 24.4 pg (25.7-33.7); MCHC 32.4 g/dl (32.0-36.0); MEAN CELL VOLUME 75.3 fl (80-96); MEAN PLT VOLUME 8.2 fl (7.5-11.1); MONO % 3.7 % (3.8-10.2); NEUT % 62.4 % (42.8-82.8); PLATELET COUNT 218 K/MM3 (134-434); RBC 3.68 M/mm3 (3.60-5.2); RDW 24.6 % (11.6-15.6); WHITE BLOOD COUNT 2.2 K/mm3 (4.0-10.0)
[2019-03-14 07:58] LABS: ALBUMIN 1.4 g/dl (3.4-5.0); BILIRUBIN,TOTAL 0.9 mg/dL (0.2-1); BLOOD UREA NITROGEN 13.8 mg/dL (7-18); CALCIUM 7.8 mg/dL (8.5-10.1); CREATININE 0.4 mg/dL (0.55-1.3); MAGNESIUM 1.8 mg/dL (1.8-2.4); PHOSPHOROUS 1.7 mg/dL (2.5-4.9); POTASSIUM 4.1 mmol/L (3.5-5.1); TOT PROT 4.1 g/dl (6.4-8.2)
--- NOTE | 2019-03-14 09:46 | PN ---
Physical Exam: SUBJECTIVE: Patient seen and examined at bedside. no cp or sob. uncomfortable 2/ 2 pain. OBJECTIVE: GEN: uncomfortable 2/2 pain. HEENT: NC/AT. No facial asymmetry. Normal voice. Supple neck w/ FROM. CV: S1/S2, RRR, no mrg LUNG: CTAB, no wheezes, crackles, rales, rhonchi. GI: patient declined exam. Vital Signs Period Temp Pulse Resp BP Sys/Rapp Pulse Ox Last 24 Hr 97.7 F-98.1 F 86-108 - 104-133/63-90 86-99 Laboratory Results - last 24 hr 03/10/19 03/13/19 03/13/19 07:20 10:57 17:16 WBC RBC Hgb Hct MCV MCH MCHC RDW Plt Count MPV Absolute Neuts (auto) Neutrophils % Lymphocytes % Monocytes % Eosinophils % Basophils % Nucleated RBC % Sodium Potassium Chloride Carbon Dioxide Anion Gap BUN Creatinine Est GFR (CKD-EPI)AfAm Est GFR (CKD-EPI)NonAf POC Glucometer 175 280 Random Glucose Calcium Phosphorus Magnesium Total Bilirubin AST ALT Alkaline Phosphatase Total Protein Albumin Crossmatch See Detail 03/13/19 03/14/19 03/14/19 21:14 05:53 06:00 WBC 2.2 L RBC 3.68 Hgb 9.0 L Hct 27.7 L MCV 75.3 L MCH 24.4 L MCHC 32.4 RDW 24.6 H Plt Count 218 MPV 8.2 Absolute Neuts (auto) 1.4 L Neutrophils % 62.4 D Lymphocytes % 31.3 D Monocytes % 3.7 L Eosinophils % 1.2 D Basophils % 1.4 D Nucleated RBC % 0 Sodium Potassium Chloride Carbon Dioxide Anion Gap BUN Creatinine Est GFR (CKD-EPI)AfAm Est GFR (CKD-EPI)NonAf POC Glucometer 170 235 Random Glucose Calcium Phosphorus Magnesium Total Bilirubin AST ALT Alkaline Phosphatase Total Protein Albumin Crossmatch 03/14/19 03/14/19 06:00 06:46 WBC RBC Hgb Hct MCV MCH MCHC RDW Plt Count MPV Absolute Neuts (auto) Neutrophils % Lymphocytes % Monocytes % Eosinophils % Basophils % Nucleated RBC % Sodium 138 Potassium 4.1 Chloride 103 Carbon Dioxide 24 Anion Gap 11 BUN 13.8 Creatinine 0.4 L Est GFR (CKD-EPI)AfAm 141.75 Est GFR (CKD-EPI)NonAf 122.30 POC Glucometer 237 Random Glucose 239 H Calcium 7.8 L Phosphorus 1.7 L Magnesium 1.8 Total Bilirubin 0.9 AST 25 ALT 13 Alkaline Phosphatase 105 Total Protein 4.1 L Albumin 1.4 L Crossmatch Active Medications Generic Name Dose Route Start Last Admin Trade Name Freq PRN Reason Stop Dose Admin Hydromorphone HCl 1 mg 03/12/19 13:00 03/12/19 15:15 Dilaudid Vial - IVPUSH 1 mg Q4H PRN Administration PAIN LEVEL 6-10 Hydromorphone HCl 10 mg 03/12/19 20:15 03/14/19 08:41 Hydromorphone 10 Mg/50 Ml-Ns ACADEMIC SUPPORT DIRECTOR 03/19/19 20:02 10 mg ACADEMIC SUPPORT DIRECTOR [facility] Administration Protocol Piperacillin Sod/Tazobactam 50 mls @ 100 mls/hr 03/13/19 11:45 03/14/19 03:39 Sod 3.375 gm/ Dextrose IVPB 100 mls/hr Q8H-IV [facility] Administration Protocol Lactated Ringer's 1,000 ml in 1,000 mls @ 175 mls/hr 03/13/19 01:04 03/14/19 03:39 Lactated Ringers Solution IV 175 mls/hr ASDIR [facility] Administration Insulin Aspart 1 vial 03/12/19 16:30 03/14/19 06:52 Novolog Vial Sliding Scale - SQ 4 units ACHS [facility] Administration Protocol Methylprednisolone Sodium Succinate 40 mg 03/13/19 11:30 03/13/19 12:22 Solu-Medrol - IVPUSH 40 mg DAILY [facility] Administration Ondansetron HCl 4 mg 03/11/19 20:31 03/14/19 05:07 Zofran Injection IVPUSH 4 mg Q6H PRN Administration NAUSEA AND/OR VOMITING Pantoprazole Sodium 40 mg 03/12/19 22:00 03/13/19 21:07 Protonix Iv IVPUSH 40 mg BID [facility] Administration ASSESSMENT/PLAN: 48F PMH IDDM, PE on xarelto, frequent DKA, HTN, HLD, CVA w/ left sided weakness , recent hospitalization at [facility] September 2018 admitted to ICU for SBO. Developed pneumoperitoneum s/p ex-lap. POD 2 #Neuro - Pain ctrl dilaudid ACADEMIC SUPPORT DIRECTOR - Tylenol for pain/fever ctrl #CV - s/p sinus tachy - No longer hypotensive or tachycardic - d/c'd heparin drip due to coffee ground emesis and not on xarelto at this time. #GI - Crohn's flair likely, pneumoperitoneum s/p ex-lap - Abdominal XR unclearly showing Pneumoperitoneum, CT abd/pelvis showing pneumoperitoneum. - S/P exploratory laparotomy, lysis of adhesions, segmental resection of small intestinal perforation with side-side stapled anastomosis, abdominal washout, resection of portion of omentum - NPO, ng tube set to suction for decompression. Maroon colored fluid. - Surgery taking pt to OR for repair of pneumoperitoneum. - Will continue zosyn - continue steroids IV for crohn's flare, which may be cause of hyperglycemia #ID - On zosyn for GI abhijit coverage - Cx + LF neg bacilli - UCx + VRE - BCx NGTD #FEN - LR 175cc/h - NPO, NGT decompression - Lytes in AM, replete PRN PPx: SCDs Patient continues to be hypoxic in the mid 80s and tachycardic. Concerning for VTE given her hx PE. Heparin gtt was stopped 2/2 coffee ground emesis. Discussed patient with Dr. Otero who spoke to Dr. Krishnamurthy - agreed to restart heparin gtt, will watch for further bleeding. Patient continues to be hypoxic in the 80s to mid-80s with tachycardia. On Heparin gtt. It seems patient may not be taking full inspirations ABG obtained but results unable to be uploaded, the results are as follows: pH 7.45 pCO2 37.8 PO2 52.9 Refer to chart for a copy of the ABG results. Discussed patient with Anesthesiology regarding SaO2, PO2, and tachycardia, recommended BiPaP, working with patient to keep mask on, and ativan PRN. Visit type - Emergency Visit Emergency Visit: No - New Patient This patient is new to me today: No - Critical Care Critical Care patient: Yes Total Critical Care Time (in minutes): 45 Critical Care Statement: The care of this patient involved high complexity decision making to prevent further life threatening deterioration of the patient 's condition and/or to evaluate & treat vital organ system(s) failure or risk of failure.
--- NOTE | 2019-03-14 09:51 | PN ---
Teaching Attending Note Name of Resident: Mukesh Pastor ATTENDING PHYSICIAN STATEMENT I saw and evaluated the patient. I reviewed the resident's note and discussed the case with the resident. I agree with the resident's findings and plan as documented. SUBJECTIVE: Patient seen and examined in the ICU. Awake and alert. Uncomfortable due to pain. No CP or SOB. POD #2: Ex lap due to pneumoperitoneum. Intake & Output 03/11/19 03/12/19 03/13/19 03/14/19 23:59 23:59 23:59 23:59 Intake Total 7179 5621 6410 2200 Output Total 854 850 760 610 Balance 6325 4771 5650 1590 Weight 124 lb Last Vital Signs Temp Pulse Resp BP Pulse Ox 98 F 108 H 17 120/74 89 L 03/14/19 06:00 03/14/19 09:11 03/14/19 09:11 03/14/19 09:11 03/14/19 09:11 Active Medications Hydromorphone HCl (Dilaudid Vial -) 1 mg IVPUSH Q4H PRN PRN Reason: PAIN LEVEL 6-10 Last Admin: 03/12/19 15:15 Dose: 1 mg Hydromorphone HCl (Hydromorphone 10 Mg/50 Ml-Ns) 10 mg GRIDDLE ATTENDANT GRIDDLE ATTENDANT [facility]; Protocol Stop: 03/19/19 20:02 Last Admin: 03/14/19 08:41 Dose: 10 mg Piperacillin Sod/Tazobactam (Sod 3.375 gm/ Dextrose) 50 mls @ 100 mls/hr IVPB Q8H-IV [facility]; Protocol Last Admin: 03/14/19 03:39 Dose: 100 mls/hr Lactated Ringer's (Lactated Ringers Solution) 1,000 ml in 1,000 mls @ 175 mls/ hr IV ASDIR [facility] Last Admin: 03/14/19 03:39 Dose: 175 mls/hr Insulin Aspart (Novolog Vial Sliding Scale -) 1 vial SQ ACHS [facility]; Protocol Last Admin: 03/14/19 06:52 Dose: 4 units Methylprednisolone Sodium Succinate (Solu-Medrol -) 40 mg IVPUSH DAILY [facility] Last Admin: 03/13/19 12:22 Dose: 40 mg Ondansetron HCl (Zofran Injection) 4 mg IVPUSH Q6H PRN PRN Reason: NAUSEA AND/OR VOMITING Last Admin: 03/14/19 05:07 Dose: 4 mg Pantoprazole Sodium (Protonix Iv) 40 mg IVPUSH BID [facility] Last Admin: 03/13/19 21:07 Dose: 40 mg GENERAL: Awake and alert, uncomfortable due to pain. HEAD: Normal with no signs of trauma. EYES: Pupils equal, round and reactive to light, extraocular movements intact, sclera anicteric, conjunctiva clear. EARS, NOSE, THROAT: Ears normal, nares patent, oropharynx clear without exudates. Moist mucous membranes. NECK: Normal range of motion, supple without lymphadenopathy, JVD, or masses. LUNGS: Breath sounds equal, clear to auscultation bilaterally. No wheezes, and no crackles. No accessory muscle use. HEART: Tachycardic, normal S1 and S2 without murmur, rub or gallop. ABDOMEN: Mild diffuse tenderness, Hypoactive BS. No guarding, no rebound. MUSCULOSKELETAL: Normal range of motion at all joints. No bony deformities or tenderness. No CVA tenderness. UPPER EXTREMITIES: 2+ pulses, warm, well-perfused. No cyanosis. No clubbing. Cap refill <2 seconds. No peripheral edema. LOWER EXTREMITIES: 2+ pulses, warm, well-perfused. No calf tenderness. No peripheral edema. NEUROLOGICAL: Non-focal SKIN: Warm, dry, normal turgor, no rashes or lesions noted. Laboratory Results - last 24 hr 03/10/19 03/13/19 03/13/19 07:20 10:57 17:16 WBC RBC Hgb Hct MCV MCH MCHC RDW Plt Count MPV Absolute Neuts (auto) Neutrophils % Lymphocytes % Monocytes % Eosinophils % Basophils % Nucleated RBC % Sodium Potassium Chloride Carbon Dioxide Anion Gap BUN Creatinine Est GFR (CKD-EPI)AfAm Est GFR (CKD-EPI)NonAf POC Glucometer 175 280 Random Glucose Calcium Phosphorus Magnesium Total Bilirubin AST ALT Alkaline Phosphatase Total Protein Albumin Crossmatch See Detail 03/13/19 03/14/19 03/14/19 21:14 05:53 06:00 WBC 2.2 L RBC 3.68 Hgb 9.0 L Hct 27.7 L MCV 75.3 L MCH 24.4 L MCHC 32.4 RDW 24.6 H Plt Count 218 MPV 8.2 Absolute Neuts (auto) 1.4 L Neutrophils % 62.4 D Lymphocytes % 31.3 D Monocytes % 3.7 L Eosinophils % 1.2 D Basophils % 1.4 D Nucleated RBC % 0 Sodium Potassium Chloride Carbon Dioxide Anion Gap BUN Creatinine Est GFR (CKD-EPI)AfAm Est GFR (CKD-EPI)NonAf POC Glucometer 170 235 Random Glucose Calcium Phosphorus Magnesium Total Bilirubin AST ALT Alkaline Phosphatase Total Protein Albumin Crossmatch 03/14/19 03/14/19 06:00 06:46 WBC RBC Hgb Hct MCV MCH MCHC RDW Plt Count MPV Absolute Neuts (auto) Neutrophils % Lymphocytes % Monocytes % Eosinophils % Basophils % Nucleated RBC % Sodium 138 Potassium 4.1 Chloride 103 Carbon Dioxide 24 Anion Gap 11 BUN 13.8 Creatinine 0.4 L Est GFR (CKD-EPI)AfAm 141.75 Est GFR (CKD-EPI)NonAf 122.30 POC Glucometer 237 Random Glucose 239 H Calcium 7.8 L Phosphorus 1.7 L Magnesium 1.8 Total Bilirubin 0.9 AST 25 ALT 13 Alkaline Phosphatase 105 Total Protein 4.1 L Albumin 1.4 L Crossmatch ASSESSMENT/PLAN: POD#2: S/P exploratory laparotomy, lysis of adhesions, segmental resection of small intestinal perforation with side-side stapled anastomosis, abdominal washout, resection of portion of omentum History of inflammatory bowel disease Type I IDDM, frequent admissions for DKA PE on Xarelto HTN HLD CVA with mild left-sided weakness NGT Pain control NPO IVF ABX per ID Continued ICU monitoring Dr Otero Critical care time spent in reviewing chart, evaluating patient and formulating plan - 36 minutes.
[2019-03-14] MEDS ORDERED: LORazepam 2 MG/ML SDV VIAL IVPUSH ONE (10:15)
[2019-03-14] MEDS: methylPREDNISolone NA SUCC 40 MG/1 ML VIAL IVPUSH SCH (10:22)
[2019-03-14] MEDS: PANTOPRAZOLE SODIUM 40 MG VIAL IVPUSH SCH ×2 (10:22→21:06)
[2019-03-14] MEDS ORDERED: HEPARIN NA (PORCINE) 5,000 UNITS/ML 1ML VIAL IVPUSH PRN (12:47)
--- NOTE | 2019-03-14 12:52 | PN.GI ---
GI Progress Note Subjective: POD 2 Complains of abdominal pain 100cc output from NGT from AM. 500cc overnight No BM Tachypnic On METAL FURNACE OPERATOR pump - Objective Vital Signs: Vital Signs Temperature 98.6 F 03/14/19 10:00 Pulse Rate 120 H 03/14/19 10:00 Respiratory Rate 25 H 03/14/19 10:00 Blood Pressure 143/92 03/14/19 10:00 O2 Sat by Pulse Oximetry (%) 89 L 03/14/19 09:11 Constitutional: Calm Cardiovascular: Yes: Tachycardia Respiratory: Yes: Tachypnea Gastrointestinal Inspection: Yes: Other (midline dressing in place). No: Distention ...Auscultate: Yes: No Bowel Sounds ...Percussion: No: Tympanitic Neurological: Yes: Other (Somnolent, responding to questions appropriately) Labs: CBC, BMP 03/14/19 06:00 03/14/19 06:00 INR, PTT INR 1.06 (0.83-1.09) 03/12/19 22:00 - ....Imaging Chest X-ray: Report Reviewed Problem List - Problems (1) Small bowel perforation Assessment/Plan: POD 2 No bowel sounds on today's exam. awaitinf return of bowel function Post op care per surgery Continue NGT suction Hypoxia / lung findings being evaluated by critical care team/. On methylprednisolon4 40mg IVPB given chronic corticosteroid use priot to admission Reinitiation of anticoagulation when feasible from surgical standpoint as per critical care/primary team Antibiotics per ID Guarded condition Code(s): K63.1 - PERFORATION OF INTESTINE (NONTRAUMATIC)
[2019-03-14] MEDS ORDERED: HEPARIN - 25,000 UNIT in SODIUM CHLORIDE 495 ML IV SCH (13:00)
--- NOTE | 2019-03-14 14:04 | PN ---
Progress Note, Physician Chief Complaint: POD2 s/p small bowel resection - Current Medication List Current Medications: Active Medications Acetaminophen (Ofirmev Injection -) 1,000 mg IVPB ONCE ONE Stop: 03/14/19 14:03 Heparin Sodium (Porcine) (Heparin -) 1,000 unit IVPUSH PRN PRN PRN Reason: Heparin Heparin Sodium (Porcine) (Heparin -) 5,000 unit IVPUSH PRN PRN PRN Reason: Heparin Hydromorphone HCl (Dilaudid Vial -) 1 mg IVPUSH Q4H PRN PRN Reason: PAIN LEVEL 6-10 Last Admin: 03/12/19 15:15 Dose: 1 mg Hydromorphone HCl (Hydromorphone 10 Mg/50 Ml-Ns) [address] PATROL PILOT [facility]; Protocol Stop: 03/19/19 20:02 Piperacillin Sod/Tazobactam (Sod 3.375 gm/ Dextrose) 50 mls @ 100 mls/hr IVPB Q8H-IV [facility]; Protocol Last Admin: 03/14/19 10:22 Dose: 100 mls/hr Lactated Ringer's (Lactated Ringers Solution) 1,000 ml in 1,000 mls @ 175 mls/ hr IV ASDIR [facility] Last Admin: 03/14/19 03:39 Dose: 175 mls/hr Heparin Sodium (Porcine) 25, (000 unit/ Sodium Chloride) 500 mls @ 16 mls/hr IV TITR [facility]; Protocol Insulin Aspart (Novolog Vial Sliding Scale -) 1 vial SQ ACHS [facility]; Protocol Last Admin: 03/14/19 12:00 Dose: 4 units Lorazepam (Ativan Injection -) 0.5 mg IM Q6H PRN PRN Reason: ANXIETY Methylprednisolone Sodium Succinate (Solu-Medrol -) 40 mg IVPUSH DAILY [facility] Last Admin: 03/14/19 10:22 Dose: 40 mg Ondansetron HCl (Zofran Injection) 4 mg IVPUSH Q6H PRN PRN Reason: NAUSEA AND/OR VOMITING Last Admin: 03/14/19 05:07 Dose: 4 mg Pantoprazole Sodium (Protonix Iv) 40 mg IVPUSH BID [facility] Last Admin: 03/14/19 10:22 Dose: 40 mg - Objective Vital Signs: Vital Signs Temperature 98.4 F 03/14/19 12:00 Pulse Rate 117 H 03/14/19 12:00 Respiratory Rate 21 H 03/14/19 12:00 Blood Pressure 111/73 03/14/19 12:00 O2 Sat by Pulse Oximetry (%) 89 L 03/14/19 09:11 Labs: CBC, BMP 03/14/19 06:00 03/14/19 06:00 INR, PTT INR 1.06 (0.83-1.09) 03/12/19 22:00 Assessment/Plan VSS, pt has c/o pain (also with history of opiod use). Will increase [address]IGHWAY PATROL PILOT settings in hopes of addressing inadequate pain control; will also order dose of ofirmev and ketorolac for breakthrough pain as well. Will follow
[2019-03-14] MEDS ORDERED: ACETAMINOPHEN 1000 MG/100 ML VIAL (NON FORMULARY) IVPB ONE (14:15)
--- NOTE | 2019-03-14 14:23 | PN ---
Progress Note, Physician History of Present Illness: Pt seen and examined. Fully alert and responsive. C/O abd pain, S[employer] pump settings being adjusted. NGT in place, pt without BS so far. Remains afebrile. Having periods of hypoxia, CXR results noted. - Current Medication List Current Medications: Active Medications Heparin Sodium (Porcine) (Heparin -) 1,000 unit IVPUSH PRN PRN PRN Reason: Heparin Heparin Sodium (Porcine) (Heparin -) 5,000 unit IVPUSH PRN PRN PRN Reason: Heparin Hydromorphone HCl (Dilaudid Vial -) 1 mg IVPUSH Q4H PRN PRN Reason: PAIN LEVEL 6-10 Last Admin: 03/12/19 15:15 Dose: 1 mg Hydromorphone HCl (Hydromorphone 10 Mg/50 Ml-Ns) 10 mg SOURCING INTERNSHIP SOURCING INTERNSHIP [facility]; Protocol Stop: 03/19/19 20:02 Piperacillin Sod/Tazobactam (Sod 3.375 gm/ Dextrose) 50 mls @ 100 mls/hr IVPB Q8H-IV [facility]; Protocol Last Admin: 03/14/19 10:22 Dose: 100 mls/hr Lactated Ringer's (Lactated Ringers Solution) 1,000 ml in 1,000 mls @ 175 mls/ hr IV ASDIR [facility] Last Admin: 03/14/19 03:39 Dose: 175 mls/hr Heparin Sodium (Porcine) 25, (000 unit/ Sodium Chloride) 500 mls @ 16 mls/hr IV TITR [facility]; Protocol Insulin Aspart (Novolog Vial Sliding Scale -) 1 vial SQ ACHS [facility]; Protocol Last Admin: 03/14/19 12:00 Dose: 4 units Ketorolac Tromethamine (Toradol Injection -) 30 mg IVPUSH Q6H PRN PRN Reason: PAIN LEVEL 6-10 Stop: 03/19/19 14:06 Lorazepam (Ativan Injection -) 0.5 mg IM Q6H PRN PRN Reason: ANXIETY Methylprednisolone Sodium Succinate (Solu-Medrol -) 40 mg IVPUSH DAILY [facility] Last Admin: 03/14/19 10:22 Dose: 40 mg Ondansetron HCl (Zofran Injection) 4 mg IVPUSH Q6H PRN PRN Reason: NAUSEA AND/OR VOMITING Last Admin: 03/14/19 05:07 Dose: 4 mg Pantoprazole Sodium (Protonix Iv) 40 mg IVPUSH BID [facility] Last Admin: 03/14/19 10:22 Dose: 40 mg - Objective Vital Signs: Vital Signs Temperature 98.4 F 03/14/19 12:00 Pulse Rate 117 H 03/14/19 12:00 Respiratory Rate 21 H 03/14/19 12:00 Blood Pressure 111/73 03/14/19 12:00 O2 Sat by Pulse Oximetry (%) 89 L 03/14/19 09:11 Constitutional: Yes: Mild Distress (c/o pain) HENT: Yes: Atraumatic Neck: Yes: Supple Cardiovascular: Yes: Tachycardia Respiratory: Yes: Regular (poor inspiratory effort) Gastrointestinal: Yes: Soft Genitourinary: Yes: Lott Present Extremities: Yes: WNL Edema: No Integumentary: Yes: WNL Wound/Incision: Yes: Dressing Dry and Intact Neurological: Yes: Alert Psychiatric: Yes: Alert Labs: CBC, BMP 03/14/19 06:00 03/14/19 06:00 INR, PTT INR 1.06 (0.83-1.09) 03/12/19 22:00 Microbiology 03/12/19 19:30 Peritoneal Fluid Body Fluid Culture - Preliminary Lactose Fermenting Neg Bacilli 03/10/19 08:30 Blood - Arterial Blood Culture - Preliminary NO GROWTH OBTAINED AFTER 96 HOURS, INCUBATION TO CONTINUE FOR 1 DAYS. 03/10/19 08:00 Blood - Arterial Blood Culture - Preliminary NO GROWTH OBTAINED AFTER 96 HOURS, INCUBATION TO CONTINUE FOR 1 DAYS. 03/09/19 17:00 Urine - Urine Clean Catch Urine Culture - Final Vr Ec Faecium - ....Imaging Chest X-ray: Report Reviewed Problem List - Problems (1) Diabetes Code(s): E11.9 - TYPE 2 DIABETES MELLITUS WITHOUT COMPLICATIONS (2) HLD (hyperlipidemia) Code(s): E78.5 - HYPERLIPIDEMIA, UNSPECIFIED (3) HTN (hypertension) Code(s): I10 - ESSENTIAL (PRIMARY) HYPERTENSION (4) Crohn's disease Code(s): K50.90 - CROHN'S DISEASE, UNSPECIFIED, WITHOUT COMPLICATIONS (5) Cerebrovascular accident (CVA) Code(s): I63.9 - CEREBRAL INFARCTION, UNSPECIFIED Qualifiers: CVA mechanism: unspecified Qualified Code(s): I63.9 - Cerebral infarction, unspecified (6) Diabetes mellitus, insulin dependent (IDDM), uncontrolled Code(s): E10.65 - TYPE 1 DIABETES MELLITUS WITH HYPERGLYCEMIA Assessment/Plan 48 y.o. female with PMH of uncontrolled IDDM and DKA, Crohn's disease on prednisone, CVA, PE, HTN, HLD presenting with abdominal pain Pneumoperitoneum SB perforation s/p Ex-lap/RAYSHAWN/partial SB and omental resection with anastomosis/ washout POD#1 Crohn's disease IDDM Hx of multiple DKA Hx of CVA Hx of PE HTN HLD -- continue Zosyn empirically, f/u peritoneal fluid culture isolates , still pending -- Urine culture results noted, U/A on admission without evidence of pyuria -- pain control -- continue monitor vitals -- monitor cbc, pt with decreasing wbc, remains afebrile cc time: 35 min
[2019-03-14 17:15] LABS: ARTERIAL BLD GAS O2 SATURATION 86.8 % (95-98); ARTERIAL BLOOD GAS BASE EXCESS 2.1 meq/l (-2-2); ARTERIAL BLOOD GAS PCO2 37.8 mmHg (35-45); ARTERIAL BLOOD GAS PO2 52.9 mmHg (80-100); ARTERIAL BLOOD GAS pH 7.45 (7.35-7.45)
[2019-03-14 17:18] LABS: ALLENS TEST POSITIVE
--- NOTE | 2019-03-14 17:29 | PN ---
Progress Note, Physician Chief Complaint: screaming in bed "help me" History of Present Illness: 48 year-old female with a PMH significant for Type I IDDM, frequent admissions for DKA, HTN, HLD, CVA with left-sided weakness. Recent hospitalization at [facility] September 2018 for SBO. Patient also states she had open heart surgery at [facility] for "a clot in my heart" at or about the same time as surgery for the SBO . Patient states she was on her way for a checkup with Dr. Chaudhary when she developed sharp abdominal pain so she came to the ED. Patient has not had BM or passed flatus since onset of pain Last BM was day before yesterday. NGT placed in ED > 1000cc output greenish/brown fluid. Pt emergently taken to the OR for peforated viscus, now POD #2 - Current Medication List Current Medications: Active Medications Acetaminophen (Ofirmev Injection -) 1,000 mg IVPB Q6H [facility] Stop: 03/16/19 21:00 Heparin Sodium (Porcine) (Heparin -) 1,000 unit IVPUSH PRN PRN PRN Reason: Heparin Heparin Sodium (Porcine) (Heparin -) 5,000 unit IVPUSH PRN PRN PRN Reason: Heparin Hydromorphone HCl (Dilaudid Vial -) 1 mg IVPUSH Q4H PRN PRN Reason: PAIN LEVEL 6-10 Last Admin: 03/12/19 15:15 Dose: 1 mg Hydromorphone HCl (Hydromorphone 10 Mg/50 Ml-Ns) 10 mg CONSUMER AFFAIRS MANAGER CONSUMER AFFAIRS MANAGER [facility]; Protocol Stop: 03/19/19 20:02 Piperacillin Sod/Tazobactam (Sod 3.375 gm/ Dextrose) 50 mls @ 100 mls/hr IVPB Q8H-IV [facility]; Protocol Last Admin: 03/14/19 10:22 Dose: 100 mls/hr Lactated Ringer's (Lactated Ringers Solution) 1,000 ml in 1,000 mls @ 175 mls/ hr IV ASDIR [facility] Last Admin: 03/14/19 03:39 Dose: 175 mls/hr Heparin Sodium (Porcine) 25, (000 unit/ Sodium Chloride) 500 mls @ 16 mls/hr IV TITR [facility]; Protocol Last Admin: 03/14/19 13:15 Dose: 800 unit/hr, 16 mls/hr Insulin Aspart (Novolog Vial Sliding Scale -) 1 vial SQ ACHS [facility]; Protocol Last Admin: 03/14/19 12:00 Dose: 4 units Ketorolac Tromethamine (Toradol Injection -) 30 mg IVPUSH Q6H PRN PRN Reason: PAIN LEVEL 6-10 Stop: 03/19/19 14:06 Lorazepam (Ativan Injection -) 0.5 mg IM Q6H PRN PRN Reason: ANXIETY Methylprednisolone Sodium Succinate (Solu-Medrol -) 40 mg IVPUSH DAILY [facility] Last Admin: 03/14/19 10:22 Dose: 40 mg Ondansetron HCl (Zofran Injection) 4 mg IVPUSH Q6H PRN PRN Reason: NAUSEA AND/OR VOMITING Last Admin: 03/14/19 05:07 Dose: 4 mg Pantoprazole Sodium (Protonix Iv) 40 mg IVPUSH BID [facility] Last Admin: 03/14/19 10:22 Dose: 40 mg - Objective Vital Signs: Vital Signs Temperature 98.2 F 03/14/19 14:00 Pulse Rate 114 H 03/14/19 14:00 Respiratory Rate 30 H 03/14/19 14:00 Blood Pressure 117/76 03/14/19 14:00 O2 Sat by Pulse Oximetry (%) 80 L 03/14/19 12:41 Constitutional: Yes: Moderate Distress, Poor Hygeine Eyes: Yes: WNL, Conjunctiva Clear HENT: Yes: WNL, Atraumatic, Normocephalic Neck: Yes: Other (right IJ TLC) Respiratory: Yes: Regular, On Nasal O2, Rhonchi (scattered), SOB Gastrointestinal: Yes: Soft, Hypoactive Bowel Sounds, Tenderness (diffuse) ...Rectal Exam: Yes: Deferred Genitourinary: Yes: Other (perez) Breast(s): Yes: WNL Musculoskeletal: Yes: WNL Extremities: Yes: WNL Edema: Yes Edema: LUE: 1+, RUE: 1+, LLE: 1+, RLE: 1+ Peripheral Pulses WNL: Yes Peripheral Pulses: Left Radial: 2+, Right Radial: 2+, Left Doralis Pedis: 2+, Right Dorsalis Pedis: 2+, Left Femoral: 2+, Right Femoral: 2+ Wound/Incision: Yes: Clean/Dry, Mikey Intact, Dressing Dry and Intact ( midline abd incision) Neurological: Yes: Alert, Confusion ...Motor Strength: LUE, LLE, RUE, RLE (generalized weakness) Labs: CBC, BMP 03/14/19 06:00 03/14/19 06:00 INR, PTT INR 1.06 (0.83-1.09) 03/12/19 22:00 - ....Imaging Chest X-ray: Image Reviewed (RIJ TLC in SVC, BL Pleural effusions L>R, sternal wires noted, increased intersitital markings) Cat Scan: Report Reviewed (CT: 1. Pneumoperitoneum developed since 03/09/2019, this is suspicious for a ruptured viscus. 2. Increasing ascites. 3. Developing bibasilar consolidation and small pleural effusions. Clinical correlation and continued follow-up recommended. Please see above discussion.) Problem List - Problems (1) HLD (hyperlipidemia) Assessment/Plan: restart statin when taking PO Code(s): E78.5 - HYPERLIPIDEMIA, UNSPECIFIED (2) Left-sided weakness Assessment/Plan: PT eval OOB when no longer requiring ICU monitoring Code(s): R53.1 - WEAKNESS (3) History of open heart surgery Code(s): Z98.890 - OTHER SPECIFIED POSTPROCEDURAL STATES (4) Acute Crohn's disease Assessment/Plan: history of chrons followed at [facility], was suppose to start infliximab but never followed through GI consultation resquested PPI Code(s): K50.90 - CROHN'S DISEASE, UNSPECIFIED, WITHOUT COMPLICATIONS (5) Gastroparesis Code(s): K31.84 - GASTROPARESIS (6) Abdominal pain Assessment/Plan: general surgery following NGT to [facility] for decompression zofran/reglan dulcolox for large fecal matter seen on CT serial AXR Code(s): R10.9 - UNSPECIFIED ABDOMINAL PAIN Qualifiers: Abdominal location: generalized Qualified Code(s): R10.84 - Generalized abdominal pain (7) Small bowel obstruction Assessment/Plan: POD#2 from perforated viscus Code(s): K56.609 - UNSP INTESTNL OBST, UNSP TO PARTIAL VERSUS COMPLETE OBST (8) Cerebrovascular accident (CVA) Code(s): I63.9 - CEREBRAL INFARCTION, UNSPECIFIED Qualifiers: CVA mechanism: unspecified Qualified Code(s): I63.9 - Cerebral infarction, unspecified (9) Chronic pain Code(s): G89.29 - OTHER CHRONIC PAIN Qualifiers: Chronic pain type: chronic pain syndrome Qualified Code(s): G89.4 - Chronic pain syndrome (10) Prophylactic measure Assessment/Plan: FEN NPO with NGT monitor electrolytes IVF DVT heparin sq Dispo requires ICU care full code discharge planning Code(s): Z29.9 - ENCOUNTER FOR PROPHYLACTIC MEASURES, UNSPECIFIED (11) Diabetes Assessment/Plan: BGM AC/HS with novolog sliding scale BS may increase with steroids, careful glycemic control with multiple episodes of DKA Code(s): E11.9 - TYPE 2 DIABETES MELLITUS WITHOUT COMPLICATIONS (12) Post-op pain Assessment/Plan: POD #2 c/w dilaudid CONSUMER AFFAIRS MANAGER ativan prn Code(s): G89.18 - OTHER ACUTE POSTPROCEDURAL PAIN (13) Perforated abdominal viscus Assessment/Plan: POD# 2 s/p Ex-lap/RAYSHAWN/partial SB and omental resection with anastomosis/washou appreciate surgical and ID consultation post-op pain mgmt with dilaudid CONSUMER AFFAIRS MANAGER c/y zosyn NPO wound care as per surgery Code(s): [id number] - (14) Leukopenia Assessment/Plan: WBC 2.2 ID following Micro: 03/12/19 19:30 Peritoneal Fluid Body Fluid Culture - Preliminary Lactose Fermenting Neg Bacilli 03/10/19 08:30 Blood - Arterial Blood Culture - Preliminary NO GROWTH OBTAINED AFTER 96 HOURS, INCUBATION TO CONTINUE FOR 1 DAYS. 03/10/19 08:00 Blood - Arterial Blood Culture - Preliminary NO GROWTH OBTAINED AFTER 96 HOURS, INCUBATION TO CONTINUE FOR 1 DAYS. 03/09/19 17:00 Urine - Urine Clean Catch Urine Culture - Final Vr Ec Faecium Code(s): D72.819 - DECREASED WHITE BLOOD CELL COUNT, UNSPECIFIED (15) Hypoxia Assessment/Plan: supplement O2 to maintain SPO2 >92% duonebs c/w solumedrol 40mg Code(s): R09.02 - HYPOXEMIA Visit type - Emergency Visit Emergency Visit: Yes ED Registration Date: 03/09/19 Care time: The patient presented to the Emergency Department on the above date and was hospitalized for further evaluation of their emergent condition. - New Patient This patient is new to me today: No - Critical Care Critical Care patient: Yes Total Critical Care Time (in minutes): 35 Critical Care Statement: The care of this patient involved high complexity decision making to prevent further life threatening deterioration of the patient 's condition and/or to evaluate & treat vital organ system(s) failure or risk of failure. - Discharge Referral Referred to [facility] Med [facility] No
[2019-03-14 20:24] LABS: BASO % 0.2 % (0-2.0); HEMATOCRIT 30.3 % (32.4-45.2); HEMOGLOBIN 9.7 GM/dL (10.7-15.3); LYMPH % 9.4 % (8-40); MCH 24.1 pg (25.7-33.7); MEAN CELL VOLUME 75.3 fl (80-96); MEAN PLT VOLUME 8.2 fl (7.5-11.1); MONO % 3.8 % (3.8-10.2); NEUT % 86.6 % (42.8-82.8); PLATELET COUNT 231 K/MM3 (134-434); RBC 4.02 M/mm3 (3.60-5.2); RDW 23.9 % (11.6-15.6); WHITE BLOOD COUNT 4.8 K/mm3 (4.0-10.0)
[2019-03-14] MEDS: ACETAMINOPHEN 1000 MG/100 ML VIAL (NON FORMULARY) IVPB SCH (20:39)
[2019-03-14 20:45] LABS: INR 1.09 (0.83-1.09); PROTHROMBIN TIME (PATIENT) 12.9 SEC (9.7-13.0)
[2019-03-14 20:47] LABS: ACTIVATED PTT 24.5 SECONDS (25.2-36.5)
[2019-03-14] MEDS: HEPARIN NA (PORCINE) 5,000 UNITS/ML 1ML VIAL IVPUSH PRN (21:06)
[2019-03-14 21:43] LABS: ANISOCYTOSIS 2+; MACROCYTOSIS 1+
[2019-03-14 21:44] LABS: PLATELET ESTIMATE ADEQUATE; TOXIC GRANULATION 1+
[2019-03-15] MEDS ORDERED: PIPERACILLIN/TAZOBACTAM 3.375 GM VIAL IVPB ONE ×2 (01:49→10:00)
[2019-03-15] MEDS ORDERED: DEXTROSE 5%-WATER - 50 ML IVPB ONE ×2 (01:49→10:00)
[2019-03-15] MEDS: PIPERACILLIN/TAZOB 3.375 GM 3.375 GM in DEXTROSE 5%-WATER - 50 ML IVPB SCH ×2 (01:53→10:04)
[2019-03-15] MEDS: ACETAMINOPHEN 1000 MG/100 ML VIAL (NON FORMULARY) IVPB SCH ×4 (02:14→22:03)
[2019-03-15] MEDS: LACTATED RINGERS SOLUTION 1,000 ML/1,000 ML INFUS.BAG IV SCH (02:15)
[2019-03-15] MEDS: LORazepam 2 MG/ML SDV VIAL IM PRN (03:07)
[2019-03-15] MEDS: HEPARIN NA (PORCINE) 5,000 UNITS/ML 1ML VIAL IVPUSH PRN (05:17)
[2019-03-15] MEDS: INSULIN SLIDING SCALE (NOVOLOG) 1 VIAL SQ SCH ×4 (07:51→22:20)
--- NOTE | 2019-03-15 08:12 | PN ---
Progress Note, Physician Chief Complaint: patient in bed with BiPap mask on, lethargic but arousable" History of Present Illness: 48 year-old female with a PMH significant for Type I IDDM, frequent admissions for DKA, HTN, HLD, CVA with left-sided weakness. Recent hospitalization at [facility] September 2018 for SBO. Patient also states she had open heart surgery at [facility] for "a clot in my heart" at or about the same time as surgery for the SBO . Patient states she was on her way for a checkup with Dr. Chaudhary when she developed sharp abdominal pain so she came to the ED. Patient has not had BM or passed flatus since onset of pain Last BM was day before yesterday. NGT placed in ED > 1000cc output greenish/brown fluid. Pt emergently taken to the OR for peforated viscus, now POD #2 - Current Medication List Current Medications: Active Medications Acetaminophen (Ofirmev Injection -) 1,000 mg IVPB Q6H [facility] Stop: 03/16/19 21:00 Last Admin: 03/15/19 02:14 Dose: 1,000 mg Heparin Sodium (Porcine) (Heparin -) 1,000 unit IVPUSH PRN PRN PRN Reason: Heparin Heparin Sodium (Porcine) (Heparin -) 5,000 unit IVPUSH PRN PRN PRN Reason: Heparin Last Admin: 03/15/19 05:17 Dose: 5,000 unit Hydromorphone HCl (Dilaudid Vial -) 1 mg IVPUSH Q4H PRN PRN Reason: PAIN LEVEL 6-10 Last Admin: 03/12/19 15:15 Dose: 1 mg Hydromorphone HCl (Hydromorphone 10 Mg/50 Ml-Ns) 10 mg RADIOISOTOPE TECHNOLOGIST RADIOISOTOPE TECHNOLOGIST [facility]; Protocol Stop: 03/19/19 20:02 Last Admin: 03/14/19 23:00 Dose: 10 mg Piperacillin Sod/Tazobactam (Sod 3.375 gm/ Dextrose) 50 mls @ 100 mls/hr IVPB Q8H-IV [facility]; Protocol Last Admin: 03/15/19 01:53 Dose: 100 mls/hr Lactated Ringer's (Lactated Ringers Solution) 1,000 ml in 1,000 mls @ 175 mls/ hr IV ASDIR [facility] Last Admin: 03/15/19 02:15 Dose: 175 mls/hr Heparin Sodium (Porcine) 25, (000 unit/ Sodium Chloride) 500 mls @ 16 mls/hr IV TITR [facility]; Protocol Last Titration: 03/15/19 05:17 Dose: 1,100 unit/hr, 22 mls/hr Insulin Aspart (Novolog Vial Sliding Scale -) 1 vial SQ ACHS [facility]; Protocol Last Admin: 03/15/19 07:51 Dose: Not Given Ketorolac Tromethamine (Toradol Injection -) 30 mg IVPUSH Q6H PRN PRN Reason: PAIN LEVEL 6-10 Stop: 03/19/19 14:06 Lorazepam (Ativan Injection -) 0.5 mg IM Q6H PRN PRN Reason: ANXIETY Last Admin: 03/15/19 03:07 Dose: 0.5 mg Methylprednisolone Sodium Succinate (Solu-Medrol -) 40 mg IVPUSH DAILY [facility] Last Admin: 03/14/19 10:22 Dose: 40 mg Ondansetron HCl (Zofran Injection) 4 mg IVPUSH Q6H PRN PRN Reason: NAUSEA AND/OR VOMITING Last Admin: 03/14/19 05:07 Dose: 4 mg Pantoprazole Sodium (Protonix Iv) 40 mg IVPUSH BID [facility] Last Admin: 03/14/19 21:06 Dose: 40 mg - Objective Vital Signs: Vital Signs Temperature 98.8 F 03/15/19 06:00 Pulse Rate 107 H 03/15/19 07:00 Respiratory Rate 17 03/15/19 07:00 Blood Pressure 90/57 L 03/15/19 07:00 O2 Sat by Pulse Oximetry (%) 99 03/15/19 07:51 Additional Findings/Remarks: Constitutional: Yes: Moderate Distress, Poor Hygeine Eyes: Yes: WNL, Conjunctiva Clear HENT: Yes: WNL, Atraumatic, Normocephalic Neck: Yes: Other (right IJ TLC) Respiratory: Yes: Regular, On BiPap, Rhonchi (scattered) Gastrointestinal: Yes: Soft, Hypoactive Bowel Sounds, Tenderness (diffuse) ...Rectal Exam: Yes: Deferred Genitourinary: Yes: Other (perez) Breast(s): Yes: WNL Musculoskeletal: Yes: WNL Extremities: Yes: WNL Edema: Yes Edema: LUE: 1+, RUE: 1+, LLE: 1+, RLE: 1+ Peripheral Pulses WNL: Yes Peripheral Pulses: Left Radial: 2+, Right Radial: 2+, Left Doralis Pedis: 2+, Right Dorsalis Pedis: 2+, Left Femoral: 2+, Right Femoral: 2+ Wound/Incision: Yes: Clean/Dry, Mikey Intact, Dressing Dry and Intact ( midline abd incision) Neurological: Yes: Alert, Confusion ...Motor Strength: LUE, LLE, RUE, RLE (generalized weakness) Labs: CBC, BMP 03/14/19 19:45 03/14/19 06:00 INR, PTT INR 1.09 (0.83-1.09) 03/14/19 19:45 Problem List - Problems (1) HLD (hyperlipidemia) Assessment/Plan: restart statin when taking PO Code(s): E78.5 - HYPERLIPIDEMIA, UNSPECIFIED (2) Left-sided weakness Assessment/Plan: PT eval OOB when no longer requiring ICU monitoring Code(s): R53.1 - WEAKNESS (3) History of open heart surgery Code(s): Z98.890 - OTHER SPECIFIED POSTPROCEDURAL STATES (4) Acute Crohn's disease Assessment/Plan: history of chrons followed at [facility], was suppose to start infliximab but never followed through GI consultation appreciated PPI c/w solumedrol Code(s): K50.90 - CROHN'S DISEASE, UNSPECIFIED, WITHOUT COMPLICATIONS (5) Gastroparesis Code(s): K31.84 - GASTROPARESIS (6) Abdominal pain Assessment/Plan: POD#3 general surgery following s/p bowel resection with viscous repair IV RADIOISOTOPE TECHNOLOGIST weaned c/w ketorlac NGT to [facility] Code(s): R10.9 - UNSPECIFIED ABDOMINAL PAIN Qualifiers: Abdominal location: generalized Qualified Code(s): R10.84 - Generalized abdominal pain (7) Small bowel obstruction Assessment/Plan: POD#3 from perforated viscus dressing changes as per surgical team Code(s): K56.609 - UNSP INTESTNL OBST, UNSP TO PARTIAL VERSUS COMPLETE OBST (8) Cerebrovascular accident (CVA) Assessment/Plan: left sided weakness PT to follow Code(s): I63.9 - CEREBRAL INFARCTION, UNSPECIFIED Qualifiers: CVA mechanism: unspecified Qualified Code(s): I63.9 - Cerebral infarction, unspecified (9) Chronic pain Assessment/Plan: wean RADIOISOTOPE TECHNOLOGIST as per anesthesia Code(s): G89.29 - OTHER CHRONIC PAIN Qualifiers: Chronic pain type: chronic pain syndrome Qualified Code(s): G89.4 - Chronic pain syndrome (10) Prophylactic measure Assessment/Plan: FEN NPO with NGT monitor electrolytes IVF DVT heparin sq Dispo requires ICU care full code discharge planning Code(s): Z29.9 - ENCOUNTER FOR PROPHYLACTIC MEASURES, UNSPECIFIED (11) Diabetes Assessment/Plan: BGM AC/HS with novolog sliding scale BS may increase with steroids, careful glycemic control with multiple episodes of DKA Code(s): E11.9 - TYPE 2 DIABETES MELLITUS WITHOUT COMPLICATIONS (12) Post-op pain Assessment/Plan: POD #2 c/w RADIOISOTOPE TECHNOLOGIST as per anesthesia c/w ketorlac ativan prn Code(s): G89.18 - OTHER ACUTE POSTPROCEDURAL PAIN (13) Perforated abdominal viscus Assessment/Plan: POD# 3 s/p Ex-lap/RAYSHAWN/partial SB and omental resection with anastomosis/washou appreciate surgical and ID consultation post-op pain mgmt with dilaudid RADIOISOTOPE TECHNOLOGIST c/y zosyn NPO wound care as per surgery Code(s): [id number] - (14) Hypoxia Assessment/Plan: c/w BiPap with supplement O2 to maintain SPO2 >92% duonebs c/w solumedrol 40mg Code(s): R09.02 - HYPOXEMIA (15) C. difficile diarrhea Assessment/Plan: copious amoint of diarrhea rectal tube inserted Cdif positive PO vanco 125mg q6h & metronidazole 500mg q8h IV will try to taper off steroids given hispital acquired infections Code(s): A04.72 - ENTEROCOLITIS D/T CLOSTRIDIUM DIFFICILE, NOT SPCF RECUR (16) ESBL (extended spectrum beta-lactamase) producing bacteria infection Assessment/Plan: ESBL in wound c/w meropenem Code(s): A49.9 - BACTERIAL INFECTION, UNSPECIFIED; Z16.12 - EXTENDED SPECTRUM BETA LACTAMASE (ESBL) RESISTANCE Visit type - Emergency Visit Emergency Visit: Yes ED Registration Date: 03/09/19 Care time: The patient presented to the Emergency Department on the above date and was hospitalized for further evaluation of their emergent condition. - New Patient This patient is new to me today: No - Critical Care Critical Care patient: Yes Total Critical Care Time (in minutes): 30 Critical Care Statement: The care of this patient involved high complexity decision making to prevent further life threatening deterioration of the patient 's condition and/or to evaluate & treat vital organ system(s) failure or risk of failure. - Discharge Referral Referred to [facility] Med [facility].C.: No
[2019-03-15] MEDS: PANTOPRAZOLE SODIUM 40 MG VIAL IVPUSH SCH ×2 (10:03→22:03)
[2019-03-15] MEDS: methylPREDNISolone NA SUCC 40 MG/1 ML VIAL IVPUSH SCH (10:04)
[2019-03-15 10:19] LABS: BASO % 0.3 % (0-2.0); HEMATOCRIT 25.8 % (32.4-45.2); HEMOGLOBIN 8.4 GM/dL (10.7-15.3); LYMPH % 15.6 % (8-40); MCH 24.6 pg (25.7-33.7); MCHC 32.6 g/dl (32.0-36.0); MEAN CELL VOLUME 75.7 fl (80-96); MEAN PLT VOLUME 8.4 fl (7.5-11.1); MONO % 1.8 % (3.8-10.2); NEUT % 80.3 % (42.8-82.8); PLATELET COUNT 187 K/MM3 (134-434); RDW 24.2 % (11.6-15.6)
[2019-03-15] MEDS ORDERED: FUROSEMIDE 40 MG/4 ML INJECTABLE VIAL IVPUSH ONE (11:40)
--- NOTE | 2019-03-15 11:44 | PN ---
Teaching Attending Note Name of Resident: Howie Chavis ATTENDING PHYSICIAN STATEMENT I saw and evaluated the patient. I reviewed the resident's note and discussed the case with the resident. I agree with the resident's findings and plan as documented. SUBJECTIVE: Pt seen and examined in the ICU. Remains tachypneic on BiPAP. Pain controlled with CLINICAL SUPPORT TECH. Has been having diarrhea. OBJECTIVE: Vital Signs Period Temp Pulse Resp BP Sys/Rapp Pulse Ox Last 24 Hr 98.2 F-99.1 F 79-130 15-30 90-143/52-81 80-125 Intake & Output 03/12/19 03/13/19 03/14/19 03/15/19 23:59 23:59 23:59 23:59 Intake Total 5621 6410 4560 Output Total 817 346 0906 500 Balance 4771 5650 2850 -500 Weight 56.245 kg Gen: tachypneic on BiPAP Heart: RRR Lung: decreased breath sounds at the bases Abd: soft, dressings with some drainage Ext: + edema CBC, BMP 03/15/19 09:40 Active Medications Acetaminophen (Ofirmev Injection -) 1,000 mg IVPB Q6H [facility] Stop: 03/16/19 21:00 Last Admin: 03/15/19 10:03 Dose: 1,000 mg Furosemide (Lasix Injection -) 20 mg IVPUSH ONCE ONE Stop: 03/15/19 11:41 Hydromorphone HCl (Dilaudid Vial -) 1 mg IVPUSH Q4H PRN PRN Reason: PAIN LEVEL 6-10 Last Admin: 03/12/19 15:15 Dose: 1 mg Hydromorphone HCl (Hydromorphone 10 Mg/50 Ml-Ns) 10 mg CLINICAL SUPPORT TECH CLINICAL SUPPORT TECH [facility]; Protocol Stop: 03/19/19 20:02 Last Admin: 03/14/19 23:00 Dose: 10 mg Piperacillin Sod/Tazobactam (Sod 3.375 gm/ Dextrose) 50 mls @ 100 mls/hr IVPB Q8H-IV [facility]; Protocol Last Admin: 03/15/19 10:04 Dose: 100 mls/hr Insulin Aspart (Novolog Vial Sliding Scale -) 1 vial SQ ACHS [facility]; Protocol Last Admin: 03/15/19 07:51 Dose: Not Given Ketorolac Tromethamine (Toradol Injection -) 30 mg IVPUSH Q6H PRN PRN Reason: PAIN LEVEL 6-10 Stop: 03/19/19 14:06 Lorazepam (Ativan Injection -) 0.5 mg IM Q6H PRN PRN Reason: ANXIETY Last Admin: 03/15/19 03:07 Dose: 0.5 mg Methylprednisolone Sodium Succinate (Solu-Medrol -) 40 mg IVPUSH DAILY [facility] Last Admin: 03/15/19 10:04 Dose: 40 mg Ondansetron HCl (Zofran Injection) 4 mg IVPUSH Q6H PRN PRN Reason: NAUSEA AND/OR VOMITING Last Admin: 03/14/19 05:07 Dose: 4 mg Pantoprazole Sodium (Protonix Iv) 40 mg IVPUSH BID [facility] Last Admin: 03/15/19 10:03 Dose: 40 mg Rivaroxaban (Xarelto) 20 mg PO DAILY@1800 [facility] ASSESSMENT AND PLAN: Perforated Small Bowel s/p ex-lap/RAYSHAWN/segmental SB resection Crohn's Disease Lactic Acidosis Volume Overload h/o PE HTN DM Hyperlipidemia h/o CVA - continue antibiotics - NGT/PO per surgery - lasix today - monitor urine output, creatinine - BiPAP to assist in work of breathing - pain control - incentive spirometry - continue anticoagulation - continue ICU monitoring critical care time spent in revieiwing chart, evaluating patient and formulating plan 35 min
[2019-03-15 12:13] LABS: ANISOCYTOSIS 2+; MACROCYTOSIS 1+; PLATELET ESTIMATE NORMAL; TEAR DROP CELLS 1+; TOXIC GRANULATION 1+
--- NOTE | 2019-03-15 12:28 | PN ---
Physical Exam: SUBJECTIVE: Patient seen and examined at bedside. Pt still c/o pain and ttp on exam in abdomen. OBJECTIVE: Vital Signs Period Temp Pulse Resp BP Sys/Rapp Pulse Ox Last 24 Hr 98.2 F-99.1 F 79-130 15-30 90-143/52-81 80-125 GENERAL: The patient is awake, alert, and fully oriented, in no acute distress. HEAD: Normal with no signs of trauma. ENT: NG tube out, pt on bipap NECK: supple. LUNGS: Breath sounds equal, no wheezing, satting low 90's on BIPAP. HEART: tachycardic in regular rhythm, S1, S2 without murmur, rub or gallop. ABDOMEN: soft, increased guarding, tenderness diffusely to palpation. EXTREMITIES: no edema. SKIN: Warm, dry, no rashes or lesions noted Laboratory Results - last 24 hr 03/10/19 03/14/19 03/14/19 07:20 13:01 16:55 WBC RBC Hgb Hct MCV MCH MCHC RDW Plt Count MPV Absolute Neuts (auto) Total Counted Neutrophils % Neutrophils % (Manual) Band Neutrophils % Lymphocytes % Lymphocytes % (Manual) Monocytes % Monocytes % (Manual) Eosinophils % Eosinophils % (Manual) Basophils % Basophils % (Manual) Myelocytes % (Man) Promyelocytes % (Man) Blast Cells % (Manual) Nucleated RBC % Metamyelocytes Differential Comment Hypochromia Toxic Granulation Dohle Bodies Platelet Estimate Platelet Comment Polychromasia Poikilocytosis Anisocytosis Microcytosis Macrocytosis Tear Drop Cells PT with INR INR PTT (Actin FS) Anticoagulation Therapy No Result Required. Puncture Site Right brachial ABG pH 7.45 ABG pCO2 at Pt Temp 37.8 ABG pO2 at Pt Temp 52.9 L ABG HCO3 25.7 ABG O2 Sat (Measured) 86.8 L ABG O2 Content 11.9 ABG Base Excess 2.1 H Atul Test Positive O2 Delivery Device Nasal Oxygen Flow Rate Pl Vent Mode No Result Required. Vent Rate No Result Required. Mechanical Rate No Result Required. Pressure Support Vent No Result Required. POC Glucometer 207 Lactic Acid Troponin I Blood Type A NEGATIVE Antibody Screen Positive Antibody Identification Anti- d Crossmatch See Detail 03/14/19 03/14/19 03/14/19 17:27 19:45 19:45 WBC 4.8 RBC 4.02 Hgb 9.7 L Hct 30.3 L MCV 75.3 L MCH 24.1 L MCHC 32.0 RDW 23.9 H Plt Count 231 MPV 8.2 Absolute Neuts (auto) 4.2 Total Counted 100 Neutrophils % 86.6 H D Neutrophils % (Manual) 46.0 Band Neutrophils % 34.0 Lymphocytes % 9.4 D Lymphocytes % (Manual) 12.0 Monocytes % 3.8 Monocytes % (Manual) 3 L Eosinophils % 0.0 D Eosinophils % (Manual) 1.0 D Basophils % 0.2 Basophils % (Manual) Myelocytes % (Man) 1 D Promyelocytes % (Man) 1 D Blast Cells % (Manual) Nucleated RBC % 0 Metamyelocytes 2 D Differential Comment Man diff performed Hypochromia Toxic Granulation 1+ Dohle Bodies 1+ Platelet Estimate Adequate Platelet Comment Polychromasia Poikilocytosis Anisocytosis 2+ Microcytosis 1+ Macrocytosis 1+ Tear Drop Cells PT with INR 12.90 INR 1.09 PTT (Actin FS) 24.5 L Anticoagulation Therapy Puncture Site ABG pH ABG pCO2 at Pt Temp ABG pO2 at Pt Temp ABG HCO3 ABG O2 Sat (Measured) ABG O2 Content ABG Base Excess Atul Test O2 Delivery Device Oxygen Flow Rate Vent Mode Vent Rate Mechanical Rate Pressure Support Vent POC Glucometer 175 Lactic Acid Troponin I Blood Type Antibody Screen Antibody Identification Crossmatch 03/14/19 03/14/19 03/15/19 19:45 21:18 03:32 WBC RBC Hgb Hct MCV MCH MCHC RDW Plt Count MPV Absolute Neuts (auto) Total Counted Neutrophils % Neutrophils % (Manual) Band Neutrophils % Lymphocytes % Lymphocytes % (Manual) Monocytes % Monocytes % (Manual) Eosinophils % Eosinophils % (Manual) Basophils % Basophils % (Manual) Myelocytes % (Man) Promyelocytes % (Man) Blast Cells % (Manual) Nucleated RBC % Metamyelocytes Differential Comment Hypochromia Toxic Granulation Dohle Bodies Platelet Estimate Platelet Comment Polychromasia Poikilocytosis Anisocytosis Microcytosis Macrocytosis Tear Drop Cells PT with INR INR PTT (Actin FS) Anticoagulation Therapy Puncture Site ABG pH ABG pCO2 at Pt Temp ABG pO2 at Pt Temp ABG HCO3 ABG O2 Sat (Measured) ABG O2 Content ABG Base Excess Atul Test O2 Delivery Device Oxygen Flow Rate Vent Mode Vent Rate Mechanical Rate Pressure Support Vent POC Glucometer 204 Lactic Acid 1.4 Troponin I < 0.02 Blood Type Antibody Screen Antibody Identification Crossmatch 03/15/19 03/15/19 03/15/19 03:32 05:09 09:40 WBC 8.0 RBC 3.40 L Hgb 8.4 L Hct 25.8 L MCV 75.7 L MCH 24.6 L MCHC 32.6 RDW 24.2 H Plt Count 187 MPV 8.4 Absolute Neuts (auto) 6.4 Total Counted Neutrophils % 80.3 Neutrophils % (Manual) 69.0 Band Neutrophils % 10.0 Lymphocytes % 15.6 D Lymphocytes % (Manual) 15.0 D Monocytes % 1.8 L Monocytes % (Manual) 2 L Eosinophils % 2.0 D Eosinophils % (Manual) 2.0 D Basophils % 0.3 Basophils % (Manual) 0.0 Myelocytes % (Man) 2 D Promyelocytes % (Man) 0 D Blast Cells % (Manual) 0 Nucleated RBC % 0 Metamyelocytes 0 D Differential Comment Hypochromia 1+ Toxic Granulation 1+ Dohle Bodies Platelet Estimate Normal Platelet Comment Polychromasia 1+ Poikilocytosis 1+ Anisocytosis 2+ Microcytosis 1+ Macrocytosis 1+ Tear Drop Cells 1+ PT with INR INR PTT (Actin FS) 42.4 H Anticoagulation Therapy Puncture Site ABG pH ABG pCO2 at Pt Temp ABG pO2 at Pt Temp ABG HCO3 ABG O2 Sat (Measured) ABG O2 Content ABG Base Excess Atul Test O2 Delivery Device Oxygen Flow Rate Vent Mode Vent Rate Mechanical Rate Pressure Support Vent POC Glucometer 98 Lactic Acid Troponin I Blood Type Antibody Screen Antibody Identification Crossmatch Active Medications Generic Name Dose Route Start Last Admin Trade Name Freq PRN Reason Stop Dose Admin Acetaminophen 1,000 mg 03/14/19 21:00 03/15/19 10:03 Ofirmev Injection - IVPB 03/16/19 21:00 1,000 mg Q6H [facility] Administration Hydromorphone HCl 1 mg 03/12/19 13:00 03/12/19 15:15 Dilaudid Vial - IVPUSH 1 mg Q4H PRN Administration PAIN LEVEL 6-10 Hydromorphone HCl 10 mg 03/14/19 14:01 03/14/19 23:00 Hydromorphone 10 Mg/50 Ml-Ns SUPERVISOR COOLER SERVICE 03/19/19 20:02 10 mg SUPERVISOR COOLER SERVICE [facility] Administration Protocol Piperacillin Sod/Tazobactam 50 mls @ 100 mls/hr 03/13/19 11:45 03/15/19 10:04 Sod 3.375 gm/ Dextrose IVPB 100 mls/hr Q8H-IV [facility] Administration Protocol Meropenem 1 gm/ Dextrose 100 mls @ 200 mls/hr 03/15/19 12:30 IVPB Q8H-IV [facility] Insulin Aspart 1 vial 03/12/19 16:30 03/15/19 07:51 Novolog Vial Sliding Scale - SQ Not Given ACHS [facility] Protocol Ketorolac Tromethamine 30 mg 03/14/19 14:07 Toradol Injection - IVPUSH 03/19/19 14:06 Q6H PRN PAIN LEVEL 6-10 Lorazepam 0.5 mg 03/14/19 13:10 03/15/19 03:07 Ativan Injection - IM 0.5 mg Q6H PRN Administration ANXIETY Methylprednisolone Sodium Succinate 40 mg 03/13/19 11:30 03/15/19 10:04 Solu-Medrol - IVPUSH 40 mg DAILY [facility] Administration Ondansetron HCl 4 mg 03/11/19 20:31 03/14/19 05:07 Zofran Injection IVPUSH 4 mg Q6H PRN Administration NAUSEA AND/OR VOMITING Pantoprazole Sodium 40 mg 03/12/19 22:00 03/15/19 10:03 Protonix Iv IVPUSH 40 mg BID [facility] Administration Rivaroxaban 20 mg 03/15/19 18:00 Xarelto PO DAILY@1800 [facility] ASSESSMENT/PLAN: 48F PMH IDDM, PE on xarelto, frequent DKA, HTN, HLD, CVA w/ left sided weakness , recent hospitalization at [facility] September 2018 admitted to ICU for SBO. Developed pneumoperitoneum s/p ex-lap. POD 3 #Neuro - Pain ctrl dilaudid SUPERVISOR COOLER SERVICE - Tylenol for pain/fever ctrl #CV - s/p sinus tachy - No longer hypotensive or tachycardic - d/c'd heparin drip and placed on xarelto at this time. - #Respiratory - c/w BiPAP to assist in work of breathing, take off when feeding. - pt not hypercapnic at this time - pt desats while off it to 80's. - lasix 20 IV given #GI - Crohn's flair likely, pneumoperitoneum s/p ex-lap - lysis of adhesions, segmental resection of small intestinal perforation with side-side stapled anastomosis, abdominal washout, resection of portion of omentum - advanced diet to clears, removed ng tube, not tolerating PO liquids or meds. - Will continue zosyn and add on meropenem and vanco/flagyl for esbl and c diff respectively. - Pt is refusing Vanco or xarelto PO, so pt switched to lovenox 40SQ. - continue steroids IV for crohn's flare #ID - d/c zosyn, starting meorpenem 1g TID due to ESBL and klebsiella pna in wound culture. - Pt growing Cdiff Ag and toxin positive so started on PO vanco 1.25 Q8 and Flagyl IVPB 500 TID. - Cx + LF neg bacilli - UCx + VRE #FEN - d/c fluids, lasix given - NPO, NGT decompression - Lytes in AM, replete PRN PPx: Stephanie ATTENDING PHYSICIAN STATEMENT I saw and evaluated the patient. I reviewed the resident's note and discussed the case with the resident. I agree with the resident's findings and plan as documented. SUBJECTIVE: OBJECTIVE: ASSESSMENT AND PLAN:
[2019-03-15] MEDS ORDERED: MEROPENEM 1 GM in DEXTROSE 5%-WATER 100 ML IVPB SCH (13:00)
[2019-03-15] MEDS ORDERED: FUROSEMIDE 40 MG/4 ML INJECTABLE VIAL ONE (13:04)
--- NOTE | 2019-03-15 13:12 | PN ---
Progress Note (short form) - Note Progress Note: GI follow up Patient seen and examined Labs reviewed Is on bipap. Complaining of a lot of abdominal pain. Asking where she is and what happened. Having diarrhea Vital Signs Temp 99.1 F 03/15/19 10:00 Pulse 102 H 03/15/19 12:00 Resp 18 03/15/19 12:00 BP 82/49 L 03/15/19 12:00 Pulse Ox 97 03/15/19 12:10 On bipap tachypneic Abd soft, appropriately ttp CBC, BMP 03/15/19 09:40 C. diff positive Impression: 48F with DM, DKA, Crohn's, h/o DVT/PE a/w vomiting, found to have perforated ileum near anastomosis. Wound w ESBL E. coli. Now C. diff positive - severe given Crohn's and immunosuppression (Steroids). - stop all non-essential systemic abx - Would start PO vanco 125mg q6h and IV fmetronidazole 500mg q8h IV - need to rapidly taper off steroids in post op state and in light of infections - would attempt to taper by 10mg daily and closely monitor bp and lytes - will follow
--- NOTE | 2019-03-15 13:14 | PN ---
Progress Note, Physician History of Present Illness: patient now on bipap still very weak cdiff positive fluid esbl - Current Medication List Current Medications: Active Medications Acetaminophen (Ofirmev Injection -) 1,000 mg IVPB Q6H [facility] Stop: 03/16/19 21:00 Last Admin: 03/15/19 10:03 Dose: 1,000 mg Hydromorphone HCl (Hydromorphone 10 Mg/50 Ml-Ns) 10 mg APPEALS BOARD REFEREE APPEALS BOARD REFEREE [facility]; Protocol Stop: 03/19/19 20:02 Last Admin: 03/14/19 23:00 Dose: 10 mg Meropenem 1 gm/ Dextrose 100 mls @ 200 mls/hr IVPB Q8H-IV [facility] Metronidazole (Flagyl 500mg Premixed Ivpb -) 500 mg in 100 mls @ 100 mls/hr IVPB Q8H-IV [facility] Meropenem 1 gm/ Dextrose 100 mls @ 200 mls/hr IVPB Q8H-IV [facility] Insulin Aspart (Novolog Vial Sliding Scale -) 1 vial SQ ACHS [facility]; Protocol Last Admin: 03/15/19 07:51 Dose: Not Given Ketorolac Tromethamine (Toradol Injection -) 30 mg IVPUSH Q6H PRN PRN Reason: PAIN LEVEL 6-10 Stop: 03/19/19 14:06 Lorazepam (Ativan Injection -) 0.5 mg IM Q6H PRN PRN Reason: ANXIETY Last Admin: 03/15/19 03:07 Dose: 0.5 mg Methylprednisolone Sodium Succinate (Solu-Medrol -) 40 mg IVPUSH DAILY [facility] Last Admin: 03/15/19 10:04 Dose: 40 mg Ondansetron HCl (Zofran Injection) 4 mg IVPUSH Q6H PRN PRN Reason: NAUSEA AND/OR VOMITING Last Admin: 03/14/19 05:07 Dose: 4 mg Pantoprazole Sodium (Protonix Iv) 40 mg IVPUSH BID [facility] Last Admin: 03/15/19 10:03 Dose: 40 mg Rivaroxaban (Xarelto) 20 mg PO DAILY@1800 [facility] Vancomycin HCl (Vancomycin Oral Solution) 125 mg PO Q6HPO [facility] - Objective Vital Signs: Vital Signs Temperature 99.1 F 03/15/19 10:00 Pulse Rate 102 H 03/15/19 12:00 Respiratory Rate 18 03/15/19 12:00 Blood Pressure 82/49 L 03/15/19 12:00 O2 Sat by Pulse Oximetry (%) 97 03/15/19 12:10 Constitutional: Yes: Calm, Mild Distress Cardiovascular: Yes: Regular Rate and Rhythm Respiratory: Yes: On BiPap, Poor Air Entry Gastrointestinal: Yes: Normal Bowel Sounds, Soft Musculoskeletal: Yes: WNL Extremities: Yes: WNL Neurological: Yes: Alert Psychiatric: Yes: Alert Labs: CBC, BMP 03/15/19 09:40 INR, PTT INR 1.09 (0.83-1.09) 03/14/19 19:45 Assessment/Plan SBO versus flair of inflammatory bowel disease R/O GI source of infection Type I IDDM, PE HTN HLD CVA with mild left-sided weakness cdiff plan abx changed to meropenam also on po vanco on cdiff hydration advance as tolerated resp support rest as per icu cc 40 min
[2019-03-15 13:23] LABS: BILIRUBIN,TOTAL 0.3 mg/dL (0.2-1); BLOOD UREA NITROGEN 9.2 mg/dL (7-18); CREATININE 0.4 mg/dL (0.55-1.3); MAGNESIUM 1.6 mg/dL (1.8-2.4); PHOSPHOROUS 1.6 mg/dL (2.5-4.9); POTASSIUM 3.5 mmol/L (3.5-5.1); TOT PROT 3.3 g/dl (6.4-8.2)
[2019-03-15 13:25] LABS: CALCIUM 6.6 mg/dL (8.5-10.1)
--- NOTE | 2019-03-15 13:39 | PN ---
Progress Note, Physician Chief Complaint: Abdominal Pain History of Present Illness: 48yo female PMH HTN, CVA (left sided hemiparesis), HLD, IDDM, DKA resulting in multiple admissions, dysphagia, gastroparesis, esophageal stricture (EGD 02/14), c/diff (10/2018), SBO September 2018 (s/p SB resection at [facility] as per pt report) presented to [facility] ED on the afternoon of 12/21 with complaints of N/V/D/ abd pain intermittently for years. She has had persistent pain but has had improved hemodynamics after IVF resuscitation. - Current Medication List Current Medications: Active Medications Acetaminophen (Ofirmev Injection -) 1,000 mg IVPB Q6H [facility] Stop: 03/16/19 21:00 Last Admin: 03/15/19 10:03 Dose: 1,000 mg Hydromorphone HCl (Hydromorphone 10 Mg/50 Ml-Ns) 10 mg TUCKING MACHINE OPERATOR TUCKING MACHINE OPERATOR [facility]; Protocol Stop: 03/19/19 20:02 Last Admin: 03/14/19 23:00 Dose: 10 mg Metronidazole (Flagyl 500mg Premixed Ivpb -) 500 mg in 100 mls @ 100 mls/hr IVPB Q8H-IV [facility] Last Admin: 03/15/19 13:17 Dose: 100 mls/hr Meropenem 1 gm/ Dextrose 100 mls @ 200 mls/hr IVPB Q8H-IV [facility] Insulin Aspart (Novolog Vial Sliding Scale -) 1 vial SQ ACHS [facility]; Protocol Last Admin: 03/15/19 13:15 Dose: 2 units Ketorolac Tromethamine (Toradol Injection -) 30 mg IVPUSH Q6H PRN PRN Reason: PAIN LEVEL 6-10 Stop: 03/19/19 14:06 Lorazepam (Ativan Injection -) 0.5 mg IM Q6H PRN PRN Reason: ANXIETY Last Admin: 03/15/19 03:07 Dose: 0.5 mg Methylprednisolone Sodium Succinate (Solu-Medrol -) 40 mg IVPUSH DAILY [facility] Last Admin: 03/15/19 10:04 Dose: 40 mg Ondansetron HCl (Zofran Injection) 4 mg IVPUSH Q6H PRN PRN Reason: NAUSEA AND/OR VOMITING Last Admin: 03/14/19 05:07 Dose: 4 mg Pantoprazole Sodium (Protonix Iv) 40 mg IVPUSH BID [facility] Last Admin: 03/15/19 10:03 Dose: 40 mg Rivaroxaban (Xarelto) 20 mg PO DAILY@1800 [facility] Vancomycin HCl (Vancomycin Oral Solution) 125 mg PO Q6HPO [facility] - Objective Vital Signs: Vital Signs Temperature 99.1 F 03/15/19 10:00 Pulse Rate 102 H 03/15/19 12:00 Respiratory Rate 18 03/15/19 12:00 Blood Pressure 82/49 L 03/15/19 12:00 O2 Sat by Pulse Oximetry (%) 97 03/15/19 12:10 Vital Signs Period Temp Pulse Resp BP Sys/Rapp Pulse Ox Last 24 Hr 98.2 F-99.1 F 79-130 15-30 82-143/49-81 86-125 Intake & Output 03/14/19 03/15/19 03/15/19 23:59 07:59 15:59 Intake Total 2360 Output Total 600 500 Balance 1760 -500 Intake: IV 2260 Heparin - 25,000 Unit In 160 Normal Saline - 495 ml @ 800 UNIT/HR 16 mls/hr IV TITR [facility] Rx#:[id number] LACTATED RINGERS SOLUTION 2100 1,000 ml In 1,000 ml @ 175 mls/hr IV ASDIR [facility] Rx#:[id number] IVPB 100 Output: Gastric Drainage 600 Urine 500 Lott 500 Other: Voiding Method Indwelling Catheter Indwelling Catheter Bowel Movement Yes Yes # Bowel Movements 1 Constitutional: Yes: No Distress, Calm, Cachectic, Thin Eyes: Yes: Conjunctiva Clear, EOM Intact HENT: Yes: Atraumatic, Normocephalic Neck: Yes: Supple, Trachea Midline Cardiovascular: Yes: Regular Rate and Rhythm, S1, S2 Respiratory: Yes: Regular, Diminished, Dullness, On Venti-Mask, Rhonchi Gastrointestinal: Yes: Normal Bowel Sounds, Soft, Distention, Tenderness ( inciosional) ...Rectal Exam: Yes: Other (rectal appliance) Genitourinary: Yes: Lott Present. No: CVA Tenderness - Left, CVA Tenderness - Right Breast(s): No: Mass, Skin Changes Musculoskeletal: No: Muscle Pain, Muscle Weakness Extremities: No: Cool, Cyanosis Edema: No Peripheral Pulses WNL: Yes Peripheral Pulses: Left Radial: 2+, Right Radial: 2+, Left Doralis Pedis: 2+, Right Dorsalis Pedis: 2+, Left Femoral: 2+, Right Femoral: 2+ Integumentary: No: Jaundice, Rash Wound/Incision: Yes: Clean/Dry, Well Approximated, [place] Intact, Dressing Dry and Intact, Unapproximated Neurological: Yes: Alert, Oriented Psychiatric: Yes: Alert, Oriented Labs: CBC, BMP 03/15/19 09:40 03/15/19 09:40 INR, PTT INR 1.09 (0.83-1.09) 03/14/19 19:45 Problem List - Problems (1) Small bowel obstruction Assessment/Plan: 48yo female with MMP including SBO, chronic constipation, Gastroparesis and crohns disease presenting with Abdominal pain. She has several possible explanations for this pain. POD#3 Exp Lap and Segmental resection of small intestinal perforation. Poor saturation and hospital acquired infections ESBL and Cdiff. Monitored Setting clears treat Cdiff and ESBL crohns flare management oob will follow This patient is critically ill. Time spent reviewing chart, examining patient, talking with providers and/or family and documentation is 40 minutes. Code(s): K56.609 - UNSP INTESTNL OBST, UNSP TO PARTIAL VERSUS COMPLETE OBST (2) Abdominal pain Code(s): R10.9 - UNSPECIFIED ABDOMINAL PAIN Qualifiers: Abdominal location: generalized Qualified Code(s): R10.84 - Generalized abdominal pain (3) Crohn's disease Code(s): K50.90 - CROHN'S DISEASE, UNSPECIFIED, WITHOUT COMPLICATIONS (4) DKA (diabetic ketoacidoses) Code(s): E13.10 - OTH DIABETES MELLITUS WITH KETOACIDOSIS WITHOUT COMA Qualifiers: Diabetes mellitus type: type 1 Diabetes mellitus complication detail: without coma Qualified Code(s): E10.10 - Type 1 diabetes mellitus with ketoacidosis without coma (5) Nausea & vomiting Code(s): R11.2 - NAUSEA WITH VOMITING, UNSPECIFIED (6) Cerebrovascular accident (CVA) Code(s): I63.9 - CEREBRAL INFARCTION, UNSPECIFIED Qualifiers: CVA mechanism: unspecified Qualified Code(s): I63.9 - Cerebral infarction, unspecified
--- NOTE | 2019-03-15 14:07 | OP ---
DATE OF OPERATION: 03/12/2019 PREOPERATIVE DIAGNOSIS: Perforated viscus with free air. POSTOPERATIVE DIAGNOSIS: Perforated small intestines. PROCEDURE: Exploratory laparotomy, lysis of adhesions, segmental resection of small intestinal perforation with [id number] stapled anastomosis, abdominal washout, resection of portion of omentum. ATTENDING SURGEON: Som Krishnamurthy MD APRON OPERATOR: Ethan Amador MD ANESTHESIA: Rashaun Reddy MD ANESTHESIA TYPE: General with local. Local consisted of a TAP block. SPECIMEN: Segment of small intestine mid ileum and a portion of omentum. ESTIMATED BLOOD LOSS: 50 mL. INTRAVENOUS FLUID ADMINISTERED: 1300 mL crystalloid. BLOOD REPLACED VOLUME: 311 mL in a unit of FFP. URINE OUTPUT FOR THE CASE: 175 mL. BRIEF FINDINGS: Patient had a thin, distended stomach. Mid ileum a full-thickness perforation approximately 2 cm defect. Adhesions to the right lower quadrant anterior abdominal wall. Normal appendix is seen. The remainder of the abdominal viscera appears normal. INDICATIONS: Patient is a 48-year-old female history of Crohn disease, steroid therapy, single dose of Remicade but had not followed up yet for a 2nd. Presented with an acute abdominal perforation the day prior. She was counseled regarding risks, benefits, and alternatives to exploration and repair. She signed informed consent and was taken for the procedure. DESCRIPTION OF PROCEDURE: Patient was brought to the operating room. She was placed in supine position on the operating room table. SCDs were placed to the lower extremities. Patient was reviewed intravenous antibiotics already. She was induced with general anesthesia, endotracheally intubated. She had a TAP block placed prior to the start of the surgery. She was induced with general anesthesia, endotracheally intubated without incident by anesthesia at which point we began with a formal time-out identifying the operative site and procedure. The anterior abdominal wall was sterilely prepped and draped in standard sterile fashion. We began with a midline laparotomy incision flanking the umbilicus to the left. It was incised with a 10-blade scalpel, deepened and widened through subcutaneous tissue with Bovie cautery to the midline fascia of the rectus muscles, which was elevated , and a blunt entry was made into the abdomen. A finger was used to protect the intra-abdominal viscera, and the incision was opened to its full extent at which point the omentum was lysed from the anterior abdominal wall and elevated, and the patient was eviscerated of all small intestine. We reached a point in the mid terminal ileum where it appeared to be adherent to the right lower quadrant. Adhesions were carefully lysed from the abdominal wall. When we were able to elevate the portion of the ileum that was stuck. There appeared to be a full-thickness perforation. The perforation was 1st controlled with clamps in the small intestine, and the abdomen was washed out and suctioned free of the succus and the vegetable material, which was present. Once complete, a segmental resection was created with [id number] stapled anastomosis after resecting segments of the small intestines flanking the perforation with FRANKIE stapler 60 mm white loads. The portions of the small intestines were adequately away from the site. Atraumatic bowel clamps were used to control contamination, and stapled anastomosis was fashioned in a standard fashion after approximating the ends with 3-0 silk stitch and a TA 60 for the final closure of the enterotomy. After completion, the intestines were then returned to their anatomical position within the abdomen. Additional segment of omentum was debrided. It appeared nonviable. The omentum was then used to cover the remainder of the repair, and the abdomen was again washed out with sterile irrigation fluid. The patient then had the midline closed from the superior and inferior poles with No. 1 looped PDS in standard fashion. It was tied in the center and then washed out the deep layer of the skin. She was awoken from general anesthesia after sterile dressings were placed. All instrument counts were correct prior to the end of the case. MD ZOHRA Alvarez/[id number]
--- NOTE | 2019-03-15 14:19 | PN ---
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
[2019-03-15] MEDS ORDERED: PT OWN MED DRAWER 7, Y5N ONE (14:55)
[2019-03-15] MEDS ORDERED: INSULIN (NOVOLOG) ASPART 100 UNITS/ML 10ML VIAL ONE (14:55)
[2019-03-15] MEDS ORDERED: DEXTROSE 5%-WATER 100 ML IVPB ONE ×2 (14:56→16:16)
[2019-03-15] MEDS ORDERED: MEROPENEM 1 GM VIAL (RESTRICTED TO ID) IVPB ONE ×2 (14:56→16:16)
[2019-03-15] MEDS: MEROPENEM 1 GM in DEXTROSE 5%-WATER 100 ML IVPB SCH ×2 (15:00→18:57)
[2019-03-15] MEDS ORDERED: VANCOMYCIN 250 MG/5 ML ORAL SOLUTION PO ONE (15:41)
[2019-03-15] MEDS ORDERED: CALCIUM GLUCONATE 10% - 1,000 MG/10 ML VIAL IVPB ONE (15:48)
[2019-03-15] MEDS ORDERED: MAGNESIUM SULF 50% (8.12 MEQ/2 ML-1 GM VIAL) IVPB ONE (15:54)
[2019-03-15] MEDS ORDERED: NAPH,MB-DB/K PH,MBDB POWDER PACKET PO ONE (15:54)
[2019-03-15] MEDS ORDERED: RIVAROXABAN 20 MG TABLET PO SCH (18:00)
[2019-03-15] MEDS ORDERED: SODIUM CHLORIDE 250 ML IV STA (18:19)
[2019-03-15] MEDS: VANCOMYCIN 250 MG/5 ML ORAL SOLUTION PO SCH (18:58)
[2019-03-15] MEDS: ENOXAPARIN NA (PORCINE) 40 MG/0.4 ML DISP.SYRIN SQ SCH (19:01)
[2019-03-15] MEDS: NOREPINEPHRINE BITARTRATE 8,000 MCG in SODIUM CHLORIDE 492 ML IV SCH (22:04)
[2019-03-15] MEDS ORDERED: HYDROmorphone *PCA* 10MG/50ML DISP.SYRIN ONE (23:25)
[2019-03-16] MEDS ORDERED: MEROPENEM 1 GM VIAL (RESTRICTED TO ID) IVPB ONE ×4 (00:41→23:37)
[2019-03-16] MEDS ORDERED: DEXTROSE 5%-WATER 100 ML IVPB ONE ×4 (00:41→23:37)
[2019-03-16] MEDS: ACETAMINOPHEN 1000 MG/100 ML VIAL (NON FORMULARY) IVPB SCH ×4 (02:21→22:07)
[2019-03-16] MEDS: MEROPENEM 1 GM in DEXTROSE 5%-WATER 100 ML IVPB SCH ×3 (02:21→17:51)
[2019-03-16] MEDS: INSULIN SLIDING SCALE (NOVOLOG) 1 VIAL SQ SCH ×4 (06:13→23:20)
[2019-03-16] MEDS: VANCOMYCIN 250 MG/5 ML ORAL SOLUTION PO SCH ×5 (06:19→17:51)
[2019-03-16 06:48] LABS: HEMATOCRIT 27.1 % (32.4-45.2); HEMOGLOBIN 8.8 GM/dL (10.7-15.3); MCH 24.4 pg (25.7-33.7); MCHC 32.5 g/dl (32.0-36.0); MEAN CELL VOLUME 75.3 fl (80-96); PLATELET COUNT 195 K/MM3 (134-434); RDW 24.6 % (11.6-15.6); WHITE BLOOD COUNT 13.8 K/mm3 (4.0-10.0)
[2019-03-16 07:50] LABS: ALBUMIN 1.1 g/dl (3.4-5.0); BILIRUBIN,TOTAL 0.4 mg/dL (0.2-1); BLOOD UREA NITROGEN 11.7 mg/dL (7-18); CREATININE 0.4 mg/dL (0.55-1.3); POTASSIUM 3.2 mmol/L (3.5-5.1); TOT PROT 3.6 g/dl (6.4-8.2)
[2019-03-16 08:17] LABS: CALCIUM 6.6 mg/dL (8.5-10.1)
--- NOTE | 2019-03-16 09:20 | PN ---
Progress Note, Physician Chief Complaint: having pain History of Present Illness: Patient is a 48 year-old female with a past medical history of diabetes type 1 with frequent admissions for DKA, HTN, HLD, CVA with left-sided weakness. Recent hospitalization at [facility] September 2018 for SBO. Patient also states she had open heart surgery at [facility] for "a clot in my heart" at or about the same time as surgery for the SBO . Patient developed sharp abdominal pain and in the ED had NGT placed with >1000cc output greenish/brown fluid. She was taken emergently to the OR for a perforated viscus and is now POD #[address] Krishnmaurthy. corrected calcium 8.9 replete potassium @ 3.2 with two K riders. - Current Medication List Current Medications: Active Medications Acetaminophen (Ofirmev Injection -) 1,000 mg IVPB Q6H [facility] Stop: 03/16/19 21:00 Last Admin: 03/16/19 02:21 Dose: 1,000 mg Enoxaparin Sodium (Lovenox -) 40 mg SQ DAILY [facility] Last Admin: 03/15/19 19:01 Dose: 40 mg Hydromorphone HCl (Hydromorphone 10 Mg/50 Ml-Ns) 10 mg ASSEMBLER ASSEMBLER [facility]; Protocol Stop: 03/19/19 20:02 Last Admin: 03/14/19 23:00 Dose: 10 mg Metronidazole (Flagyl 500mg Premixed Ivpb -) 500 mg in 100 mls @ 100 mls/hr IVPB Q8H-IV [facility] Last Admin: 03/16/19 02:21 Dose: 100 mls/hr Meropenem 1 gm/ Dextrose 100 mls @ 200 mls/hr IVPB Q8H-IV [facility] Last Admin: 03/16/19 02:21 Dose: 200 mls/hr Norepinephrine Bitartrate 8, (000 mcg/ Sodium Chloride) 500 mls @ 18.75 mls/hr IV TITR [facility]; Protocol Last Admin: 03/15/19 22:04 Dose: 5 mcg/min, 18.75 mls/hr Potassium Chloride (Potassium Chloride 10 Meq Premix Ivpb -) 10 meq in 100 mls @ 100 mls/hr IVPB Q60M [facility] Stop: 03/16/19 11:29 Insulin Aspart (Novolog Vial Sliding Scale -) 1 vial SQ ACHS [facility]; Protocol Last Admin: 03/16/19 06:13 Dose: 2 units Ketorolac Tromethamine (Toradol Injection -) 30 mg IVPUSH Q6H PRN PRN Reason: PAIN LEVEL 6-10 Stop: 03/19/19 14:06 Lorazepam (Ativan Injection -) 0.5 mg IM Q6H PRN PRN Reason: ANXIETY Last Admin: 03/15/19 03:07 Dose: 0.5 mg Methylprednisolone Sodium Succinate (Solu-Medrol -) 30 mg IVPUSH ONCE ONE Stop: 03/16/19 10:01 Ondansetron HCl (Zofran Injection) 4 mg IVPUSH Q6H PRN PRN Reason: NAUSEA AND/OR VOMITING Last Admin: 03/14/19 05:07 Dose: 4 mg Pantoprazole Sodium (Protonix Iv) 40 mg IVPUSH BID [facility] Last Admin: 03/15/19 22:03 Dose: 40 mg Potassium Chloride (Potassium Chloride 20 Meq Premix Ivpb -) 20 meq IVPB Q60M [facility] Stop: 03/16/19 11:01 Vancomycin HCl (Vancomycin Oral Solution) 125 mg PO Q6HPO [facility] Last Admin: 03/16/19 06:19 Dose: Not Given - Objective Vital Signs: Vital Signs Temperature 98.1 F 03/16/19 06:00 Pulse Rate 99 H 03/16/19 08:00 Respiratory Rate 22 H 03/16/19 08:00 Blood Pressure 99/68 03/16/19 08:00 O2 Sat by Pulse Oximetry (%) 99 03/16/19 08:17 Constitutional: Yes: Anxious Eyes: Yes: WNL HENT: Yes: Atraumatic Neck: Yes: Supple Cardiovascular: Yes: Tachycardia Respiratory: Yes: Accessory Muscle Use, Diminished, On BiPap Gastrointestinal: Yes: Hypoactive Bowel Sounds, Other (dressing c/d/i. wound not viewed as dressing not removed.) ...Rectal Exam: Yes: Deferred Genitourinary: Yes: Lott Present Extremities: Yes: WNL Edema: Yes Edema: LUE: 1+, RUE: 1+, LLE: 1+, RLE: 1+ Integumentary: Yes: Other (abdominal surgical dressing c/d/i.) Neurological: Yes: Alert, Oriented ...Motor Strength: WNL Psychiatric: Yes: Alert, Oriented, Agitated Labs: CBC, BMP 03/16/19 05:50 03/16/19 07:03 INR, PTT INR 1.09 (0.83-1.09) 03/14/19 19:45 Problem List - Problems (1) Perforated abdominal viscus Assessment/Plan: s/p Ex-lap/RAYSHAWN/partial SB and omental resection with anastomosis/washou appreciate surgical and ID consultation post-op pain mgmt with dilaudid ASSEMBLER on meropenem and flagyl per ID. NPO wound care as per surgery Code(s): [id number] - (2) Abdominal pain Assessment/Plan: Patient is/p ex-lap/RAYSHAWN/partial SB and omental resection with anastomosis/ washout appreciate surgical and ID consultation post-op pain mgmt with dilaudid ASSEMBLER on meropenem and flagyl NPO, advance diet per surgery wound care as per surgery Code(s): R10.9 - UNSPECIFIED ABDOMINAL PAIN Qualifiers: Abdominal location: generalized Qualified Code(s): R10.84 - Generalized abdominal pain (3) C. difficile diarrhea Assessment/Plan: + for c diff toxin and antigen on oral vanco ID following monitor output Code(s): A04.72 - ENTEROCOLITIS D/T CLOSTRIDIUM DIFFICILE, NOT SPCF RECUR (4) Diabetes Assessment/Plan: not in DKA. on novolog ss. monitor bgms anion gap within normal limits Code(s): E11.9 - TYPE 2 DIABETES MELLITUS WITHOUT COMPLICATIONS (5) ESBL (extended spectrum beta-lactamase) producing bacteria infection Assessment/Plan: esbl in wound culture. continue IV antibiotics per ID maintain contact precautions. Code(s): A49.9 - BACTERIAL INFECTION, UNSPECIFIED; Z16.12 - EXTENDED SPECTRUM BETA LACTAMASE (ESBL) RESISTANCE (6) HTN (hypertension) Assessment/Plan: hypotensive today, ICU monitoring with frequent checks on pressors Code(s): I10 - ESSENTIAL (PRIMARY) HYPERTENSION (7) Left-sided weakness Assessment/Plan: PT once more stable Code(s): R53.1 - WEAKNESS (8) Acute respiratory failure Assessment/Plan: on bipap support. care per pulmonary on solumedrol Code(s): J96.00 - ACUTE RESPIRATORY FAILURE, UNSP W HYPOXIA OR HYPERCAPNIA (9) Acute Crohn's disease Assessment/Plan: lysis of adhesions, segmental resection of small intestinal perforation with side-side stapled anastomosis, abdominal washout, resection of portion of omentum. advance diet as per surgery. on meropenem, vanco, flagyl. GI following. Code(s): K50.90 - CROHN'S DISEASE, UNSPECIFIED, WITHOUT COMPLICATIONS (10) Prophylactic measure Assessment/Plan: NPO monitor electrolytes IVF DVT heparin sq Dispo requires ICU care full code Code(s): Z29.9 - ENCOUNTER FOR PROPHYLACTIC MEASURES, UNSPECIFIED Visit type - Emergency Visit Emergency Visit: Yes ED Registration Date: 03/09/19 Care time: The patient presented to the Emergency Department on the above date and was hospitalized for further evaluation of their emergent condition. - New Patient This patient is new to me today: No - Critical Care Critical Care patient: Yes Total Critical Care Time (in minutes): 60 Critical Care Statement: The care of this patient involved high complexity decision making to prevent further life threatening deterioration of the patient 's condition and/or to evaluate & treat vital organ system(s) failure or risk of failure. - Discharge Referral Referred to [facility] Med [facility].C.: No
[2019-03-16 09:26] LABS: MAGNESIUM 1.8 mg/dL (1.8-2.4); PHOSPHOROUS 1.5 mg/dL (2.5-4.9)
[2019-03-16] MEDS: PANTOPRAZOLE SODIUM 40 MG VIAL IVPUSH SCH (09:49)
[2019-03-16] MEDS: KCL 10 MEQ IVPB 10 MEQ/100 ML INFUS.BAG IVPB SCH ×2 (09:49→14:35)
[2019-03-16] MEDS ORDERED: MEROPENEM 1 GM in DEXTROSE 5%-WATER 100 ML IVPB SCH (10:00)
[2019-03-16] MEDS: ENOXAPARIN NA (PORCINE) 40 MG/0.4 ML DISP.SYRIN SQ SCH (10:00)
[2019-03-16] MEDS ORDERED: methylPREDNISolone NA SUCC 40 MG/1 ML VIAL IVPUSH ONE (10:00)
[2019-03-16] MEDS: POTASSIUM CHLORIDE 20 MEQ PREMIX IVPB 100 ML IVPB SCH ×3 (11:00→14:33)
[2019-03-16] MEDS ORDERED: FUROSEMIDE 40 MG/4 ML INJECTABLE VIAL IVPUSH ONE (12:00)
--- NOTE | 2019-03-16 12:24 | PN ---
Teaching Attending Note Name of Resident: Mukesh Pastor ATTENDING PHYSICIAN STATEMENT I saw and evaluated the patient. I reviewed the resident's note and discussed the case with the resident. I agree with the resident's findings and plan as documented. SUBJECTIVE: Pt seen and examined in the ICU. Remains on BiPAP, more alert. Does c/o shortness of breath. Started on levophed gtt. OBJECTIVE: Vital Signs Period Temp Pulse Resp BP Sys/Rapp Pulse Ox Last 24 Hr 97.9 F-99.1 F 91-107 18-25 76-100/53-69 93-100 Intake & Output 03/13/19 03/14/19 03/15/19 03/16/19 23:59 23:59 23:59 23:59 Intake Total 6410 4560 425.6 Output Total 760 1710 1750 200 Balance 5650 2850 -1750 225.6 Gen: more awake on BiPAP, tachypneic Heart: RRR Lung: scattered rhonchi Abd: soft, nontender Ext: + edema CBC, BMP 03/16/19 05:50 03/16/19 07:03 Active Medications Acetaminophen (Ofirmev Injection -) 1,000 mg IVPB Q6H [facility] Stop: 03/16/19 21:00 Last Admin: 03/16/19 09:48 Dose: 1,000 mg Enoxaparin Sodium (Lovenox -) 40 mg SQ DAILY [facility] Last Admin: 03/15/19 19:01 Dose: 40 mg Hydromorphone HCl (Hydromorphone 10 Mg/50 Ml-Ns) 10 mg CONSULTATIVE SALES ASSOCIATE CONSULTATIVE SALES ASSOCIATE [facility]; Protocol Stop: 03/19/19 20:02 Last Admin: 03/14/19 23:00 Dose: 10 mg Metronidazole (Flagyl 500mg Premixed Ivpb -) 500 mg in 100 mls @ 100 mls/hr IVPB Q8H-IV [facility] Last Admin: 03/16/19 09:50 Dose: 100 mls/hr Meropenem 1 gm/ Dextrose 100 mls @ 200 mls/hr IVPB Q8H-IV [facility] Last Admin: 03/16/19 09:50 Dose: 200 mls/hr Norepinephrine Bitartrate 8, (000 mcg/ Sodium Chloride) 500 mls @ 18.75 mls/hr IV TITR [facility]; Protocol Last Admin: 03/15/19 22:04 Dose: 5 mcg/min, 18.75 mls/hr Insulin Aspart (Novolog Vial Sliding Scale -) 1 vial SQ ACHS [facility]; Protocol Last Admin: 03/16/19 06:13 Dose: 2 units Ketorolac Tromethamine (Toradol Injection -) 30 mg IVPUSH Q6H PRN PRN Reason: PAIN LEVEL 6-10 Stop: 03/19/19 14:06 Lorazepam (Ativan Injection -) 0.5 mg IM Q6H PRN PRN Reason: ANXIETY Last Admin: 03/15/19 03:07 Dose: 0.5 mg Ondansetron HCl (Zofran Injection) 4 mg IVPUSH Q6H PRN PRN Reason: NAUSEA AND/OR VOMITING Last Admin: 03/14/19 05:07 Dose: 4 mg Pantoprazole Sodium (Protonix Iv) 40 mg IVPUSH BID [facility] Last Admin: 03/16/19 09:49 Dose: 40 mg Vancomycin HCl (Vancomycin Oral Solution) 125 mg PO Q6HPO [facility] Last Admin: 03/16/19 06:19 Dose: Not Given Vancomycin HCl (Vancomycin Oral Solution) 125 mg PO ONCE ONE Stop: 03/16/19 12:31 ASSESSMENT AND PLAN: Perforated Small Bowel s/p ex-lap/RAYSHAWN/segmental SB resection Crohn's Disease Peritonitis +C diff Septic Shock Lactic Acidosis Volume Overload h/o PE HTN DM Hyperlipidemia h/o CVA - continue antibiotics - lasix today - monitor urine output, creatinine - replete lytes - titrate pressors to maintain MAP >65 - BiPAP to assist in work of breathing - pain control - incentive spirometry - continue anticoagulation - continue ICU monitoring critical care time spent in revieiwing chart, evaluating patient and formulating plan 35 min
[2019-03-16] MEDS ORDERED: VANCOMYCIN 250 MG/5 ML ORAL SOLUTION PO ONE (12:30)
--- NOTE | 2019-03-16 13:09 | EKG ---
Test Reason : Blood Pressure : / mmHG Vent. Rate : 127 BPM Atrial Rate : 127 BPM P-R Int : 168 ms QRS Dur : 082 ms QT Int : 296 ms P-R-T Axes : 032 047 187 degrees QTc Int : 430 ms SINUS TACHYCARDIA POSSIBLE LEFT ATRIAL ENLARGEMENT MARKED T-WAVE ABNORMALITY, CONSIDER INFEROLATERAL ISCHEMIA ABNORMAL ECG WHEN COMPARED WITH ECG OF 10-MAR-2019 00:00, QRS VOLTAGE HAS DECREASED Confirmed by MD Tanja, Bhanu ([id number]) on 03/16/2019 1:09:00 PM Referred By: Confirmed By:Bhanu Agrawal MD
--- NOTE | 2019-03-16 13:29 | PN ---
Progress Note, Physician History of Present Illness: still very groggy on bipap says she is thirsty - Current Medication List Current Medications: Active Medications Acetaminophen (Ofirmev Injection -) 1,000 mg IVPB Q6H [facility] Stop: 03/16/19 21:00 Last Admin: 03/16/19 09:48 Dose: 1,000 mg Enoxaparin Sodium (Lovenox -) 40 mg SQ DAILY [facility] Last Admin: 03/15/19 19:01 Dose: 40 mg Hydromorphone HCl (Hydromorphone 10 Mg/50 Ml-Ns) 10 mg INSURANCE SALES EXECUTIVE INSURANCE SALES EXECUTIVE [facility]; Protocol Stop: 03/19/19 20:02 Last Admin: 03/14/19 23:00 Dose: 10 mg Metronidazole (Flagyl 500mg Premixed Ivpb -) 500 mg in 100 mls @ 100 mls/hr IVPB Q8H-IV [facility] Last Admin: 03/16/19 09:50 Dose: 100 mls/hr Meropenem 1 gm/ Dextrose 100 mls @ 200 mls/hr IVPB Q8H-IV [facility] Last Admin: 03/16/19 09:50 Dose: 200 mls/hr Norepinephrine Bitartrate 8, (000 mcg/ Sodium Chloride) 500 mls @ 18.75 mls/hr IV TITR [facility]; Protocol Last Admin: 03/15/19 22:04 Dose: 5 mcg/min, 18.75 mls/hr Insulin Aspart (Novolog Vial Sliding Scale -) 1 vial SQ ACHS [facility]; Protocol Last Admin: 03/16/19 06:13 Dose: 2 units Ketorolac Tromethamine (Toradol Injection -) 30 mg IVPUSH Q6H PRN PRN Reason: PAIN LEVEL 6-10 Stop: 03/19/19 14:06 Lorazepam (Ativan Injection -) 0.5 mg IM Q6H PRN PRN Reason: ANXIETY Last Admin: 03/15/19 03:07 Dose: 0.5 mg Ondansetron HCl (Zofran Injection) 4 mg IVPUSH Q6H PRN PRN Reason: NAUSEA AND/OR VOMITING Last Admin: 03/14/19 05:07 Dose: 4 mg Pantoprazole Sodium (Protonix Iv) 40 mg IVPUSH BID [facility] Last Admin: 03/16/19 09:49 Dose: 40 mg Vancomycin HCl (Vancomycin Oral Solution) 125 mg PO Q6HPO [facility] Last Admin: 03/16/19 06:19 Dose: Not Given - Objective Vital Signs: Vital Signs Temperature 98.1 F 03/16/19 06:00 Pulse Rate 99 H 03/16/19 08:00 Respiratory Rate 22 H 03/16/19 08:00 Blood Pressure 99/68 03/16/19 08:00 O2 Sat by Pulse Oximetry (%) 94 L 03/16/19 12:10 Constitutional: Yes: Calm, Mild Distress Cardiovascular: Yes: Regular Rate and Rhythm Respiratory: Yes: On BiPap, Poor Air Entry Gastrointestinal: Yes: Soft, Other Musculoskeletal: Yes: WNL Extremities: Yes: WNL Neurological: Yes: Alert Labs: CBC, BMP 03/16/19 05:50 03/16/19 07:03 INR, PTT INR 1.09 (0.83-1.09) 03/14/19 19:45 Assessment/Plan SBO versus flair of inflammatory bowel disease R/O GI source of infection Type I IDDM, PE HTN HLD CVA with mild left-sided weakness cdiff plan abx changed to meropenam also on po vanco on cdiff hydration advance as tolerated resp support rest as per icu cc 40 min
--- NOTE | 2019-03-16 13:35 | PN ---
Physical Exam: SUBJECTIVE: Patient seen and examined at bedside. Overnight patient was refusing PO meds (vanc., xarelto). Patient complaining of pain - fixated on pain unable to assess other ROS. OBJECTIVE: GEN: Moderate distress HEENT: NC/AT. Normal voice. Supple neck w/ FROM. CV: S1/S2, RRR, no m/r/g LUNG: Bipap. CTAB, no wheezes, crackles, rales, rhonchi. GI: hypoactive BS. midline scar s/p exlap, dressed Vital Signs Period Temp Pulse Resp BP Sys/Rapp Pulse Ox Last 24 Hr 97.9 F-99.1 F 91-107 18-25 76-100/53-69 93-100 Laboratory Results - last 24 hr 03/10/19 03/15/19 03/15/19 07:20 18:24 22:19 WBC RBC Hgb Hct MCV MCH MCHC RDW Plt Count MPV PTT (Actin FS) Sodium Potassium Chloride Carbon Dioxide Anion Gap BUN Creatinine Est GFR (CKD-EPI)AfAm Est GFR (CKD-EPI)NonAf POC Glucometer 278 219 Random Glucose Calcium Phosphorus Magnesium Total Bilirubin AST ALT Alkaline Phosphatase Total Protein Albumin Blood Type A NEGATIVE Antibody Screen Positive Antibody Identification Anti- d Crossmatch See Detail 03/16/19 03/16/19 03/16/19 05:50 05:50 06:03 WBC 13.8 H RBC 3.60 Hgb 8.8 L Hct 27.1 L MCV 75.3 L MCH 24.4 L MCHC 32.5 RDW 24.6 H Plt Count 195 MPV 9.0 PTT (Actin FS) 25.9 Sodium Potassium Chloride Carbon Dioxide Anion Gap BUN Creatinine Est GFR (CKD-EPI)AfAm Est GFR (CKD-EPI)NonAf POC Glucometer 159 Random Glucose Calcium Phosphorus Magnesium Total Bilirubin AST ALT Alkaline Phosphatase Total Protein Albumin Blood Type Antibody Screen Antibody Identification Crossmatch 03/16/19 03/16/19 03/16/19 07:03 09:40 12:41 WBC RBC Hgb Hct MCV MCH MCHC RDW Plt Count MPV PTT (Actin FS) 25.3 Sodium 142 Potassium 3.2 L Chloride 108 H Carbon Dioxide 26 Anion Gap 9 BUN 11.7 Creatinine 0.4 L Est GFR (CKD-EPI)AfAm 141.75 Est GFR (CKD-EPI)NonAf 122.30 POC Glucometer 101 Random Glucose 165 H Calcium 6.6 L* Phosphorus 1.5 L Magnesium 1.8 Total Bilirubin 0.4 AST 20 ALT 9 L Alkaline Phosphatase 119 H Total Protein 3.6 L Albumin 1.1 L Blood Type Antibody Screen Antibody Identification Crossmatch Active Medications Generic Name Dose Route Start Last Admin Trade Name Freq PRN Reason Stop Dose Admin Acetaminophen 1,000 mg 03/14/19 21:00 03/16/19 09:48 Ofirmev Injection - IVPB 03/16/19 21:00 1,000 mg Q6H [facility] Administration Enoxaparin Sodium 40 mg 03/15/19 17:45 03/15/19 19:01 Lovenox - SQ 40 mg DAILY [facility] Administration Hydromorphone HCl 10 mg 03/14/19 14:01 03/14/19 23:00 Hydromorphone 10 Mg/50 Ml-Ns IRRIGATOR HEAD 03/19/19 20:02 10 mg IRRIGATOR HEAD [facility] Administration Protocol Metronidazole 500 mg in 100 mls @ 100 mls/hr 03/15/19 13:00 03/16/19 09:50 Flagyl 500mg Premixed Ivpb - IVPB 100 mls/hr Q8H-IV [facility] Administration Meropenem 1 gm/ Dextrose 100 mls @ 200 mls/hr 03/15/19 13:15 03/16/19 09:50 IVPB 200 mls/hr Q8H-IV [facility] Administration Norepinephrine Bitartrate 8, 500 mls @ 18.75 mls/hr 03/15/19 19:45 03/15/19 22:04 000 mcg/ Sodium Chloride IV 5 mcg/min TITR [facility] 18.75 mls/hr Administration Protocol 5 MCG/MIN Insulin Aspart 1 vial 03/12/19 16:30 03/16/19 06:13 Novolog Vial Sliding Scale - SQ 2 units ACHS [facility] Administration Protocol Ketorolac Tromethamine 30 mg 03/14/19 14:07 Toradol Injection - IVPUSH 03/19/19 14:06 Q6H PRN PAIN LEVEL 6-10 Lorazepam 0.5 mg 03/14/19 13:10 03/15/19 03:07 Ativan Injection - IM 0.5 mg Q6H PRN Administration ANXIETY Ondansetron HCl 4 mg 03/11/19 20:31 03/14/19 05:07 Zofran Injection IVPUSH 4 mg Q6H PRN Administration NAUSEA AND/OR VOMITING Pantoprazole Sodium 40 mg 03/12/19 22:00 03/16/19 09:49 Protonix Iv IVPUSH 40 mg BID [facility] Administration Vancomycin HCl 125 mg 03/15/19 18:00 03/16/19 06:19 Vancomycin Oral Solution PO Not Given Q6HPO [facility] ASSESSMENT/PLAN: 48F PMH IDDM, PE on xarelto, frequent DKA, HTN, HLD, CVA w/ left sided weakness , recent hospitalization at [facility] September 2018 admitted to ICU for SBO. Developed pneumoperitoneum s/p ex-lap. POD 4 #Neuro - Pain ctrl dilaudid IRRIGATOR HEAD - Tylenol for pain/fever ctrl #CV - s/p sinus tachy - No longer hypotensive or tachycardic - d/c'd heparin drip and placed on xarelto - refused PO meds so started LVX #Respiratory - c/w BiPAP to assist in work of breathing, take off when feeding. - pt not hypercapnic at this time - Decreased FiO2 on BiPap and patient desaturated, not ready to come off - pt desats while off it to 80's. - lasix 20 IV given - monitor resp status - f/u CXR #GI - Crohn's flair likely, pneumoperitoneum s/p ex-lap - lysis of adhesions, segmental resection of small intestinal perforation with side-side stapled anastomosis, abdominal washout, resection of portion of omentum - advanced diet to clears, removed ng tube, not tolerating PO liquids or meds. - Will continue zosyn and add on meropenem and vanco/flagyl for esbl and c diff respectively. - Pt is refusing Vanco or xarelto PO, so pt switched to lovenox 40SQ. - continue steroids IV for crohn's flare #ID - ID recs appreciated - d/c zosyn, starting meorpenem 1g TID due to ESBL and klebsiella pna in wound culture. - Cx + LF neg bacilli - UCx + VRE - CDiff Ag and toxin pos - c/w flagyl - c/w meropenam - pt intially refused PO vanc., was amenable during AM rounds - restart PO vanc #FEN - d/c fluids, lasix given - NPO, NGT decompression - Lytes in AM, replete PRN - K repleted, f/u BMP PPx: LVX Visit type - Emergency Visit Emergency Visit: Yes ED Registration Date: 03/09/19 Care time: The patient presented to the Emergency Department on the above date and was hospitalized for further evaluation of their emergent condition. - New Patient This patient is new to me today: No - Critical Care Critical Care patient: Yes Total Critical Care Time (in minutes): 35 Critical Care Statement: The care of this patient involved high complexity decision making to prevent further life threatening deterioration of the patient 's condition and/or to evaluate & treat vital organ system(s) failure or risk of failure.
--- NOTE | 2019-03-16 14:00 | PN ---
Progress Note (short form) - Note Progress Note: POD 4 s/p exploratory lap/small bowel resection. Patient using SIMULATION DEVELOPER appropriately, pain control adequate when dose delivered. Has to be reminded to press the SIMULATION DEVELOPER button by staff. Continue SIMULATION DEVELOPER for now.
[2019-03-16] MEDS ORDERED: PT OWN MED DRAWER 7, Y5N ONE ×2 (14:24→17:45)
[2019-03-16] MEDS: HYDROmorphone *PCA* 10MG/50ML DISP.SYRIN PCA SCH ×2 (14:31→14:53)
--- NOTE | 2019-03-16 17:54 | PN.GI ---
GI Progress Note Subjective: NGT removed On BiPAP Appears comfortable when resting. When awoken complains of abdominal pain Diarrhea improved today per nursring - Objective Vital Signs: Vital Signs Temperature 98.1 F 03/16/19 06:00 Pulse Rate 98 H 03/16/19 14:53 Respiratory Rate 20 03/16/19 14:53 Blood Pressure 95/59 L 03/16/19 14:53 O2 Sat by Pulse Oximetry (%) 94 L 03/16/19 15:53 Constitutional: Calm Eyes: No: Sclera Icterus Cardiovascular: Yes: Tachycardia Respiratory: Yes: Diminished (At bases bilaterally, however with poor insp effort) Gastrointestinal Inspection: Yes: Other (Dressing in mid abdomen) ...Auscultate: Yes: Hypoactive Bowel Sounds ...Palpate: Yes: Soft (Improved from previous exam), Tenderness (diffusely TTP) ...Percussion: No: Tympanitic Edema: Yes Edema: LUE: 2+, RUE: 1+, LLE: 1+, RLE: 1+ Neurological: Yes: Other (Somnnolent at times, responding to questions) Labs: CBC, BMP 03/16/19 05:50 03/16/19 07:03 INR, PTT INR 1.09 (0.83-1.09) 03/14/19 19:45 Problem List - Problems (1) Small bowel perforation Assessment/Plan: Post op care per surgery Code(s): K63.1 - PERFORATION OF INTESTINE (NONTRAUMATIC) (2) Clostridium difficile diarrhea Assessment/Plan: Improved diarrhea Continue Vancocin 125mg PO Q6 hours Continue IV flagyl 500mg IVPB Q8 hours Discontinued protonix Corticosteroid being rapidly tapered. Monitor lytes ID following Guarded prognosis Code(s): A04.72 - ENTEROCOLITIS D/T CLOSTRIDIUM DIFFICILE, NOT SPCF RECUR
[2019-03-16 18:33] LABS: BLOOD UREA NITROGEN 10.5 mg/dL (7-18); CREATININE 0.4 mg/dL (0.55-1.3)
[2019-03-16 18:37] LABS: CALCIUM 6.8 mg/dL (8.5-10.1)
[2019-03-16] MEDS: LORazepam 2 MG/ML SDV VIAL IM PRN (22:06)
[2019-03-16] MEDS ORDERED: INSULIN (NOVOLOG) ASPART 100 UNITS/ML 10ML VIAL ONE (23:37)
[2019-03-17] MEDS: NOREPINEPHRINE BITARTRATE 8,000 MCG in SODIUM CHLORIDE 492 ML IV SCH (00:28)
[2019-03-17] MEDS ORDERED: INSULIN (NOVOLOG) ASPART 100 UNITS/ML 10ML VIAL ONE (00:54)
[2019-03-17] MEDS: KETOROLAC TROMETHAMINE 30 MG/1 ML VIAL IVPUSH PRN ×2 (01:17→21:20)
[2019-03-17] MEDS: VANCOMYCIN 250 MG/5 ML ORAL SOLUTION PO SCH ×4 (01:17→18:00)
[2019-03-17] MEDS: MEROPENEM 1 GM in DEXTROSE 5%-WATER 100 ML IVPB SCH ×3 (02:00→18:25)
[2019-03-17 06:09] LABS: HEMATOCRIT 27.2 % (32.4-45.2); HEMOGLOBIN 8.7 GM/dL (10.7-15.3); MCHC 31.9 g/dl (32.0-36.0)
[2019-03-17 06:31] LABS: BASO % 0.1 % (0-2.0); EOS % 0.3 % (0-4.5); LYMPH % 8.4 % (8-40); MEAN CELL VOLUME 75.4 fl (80-96); MEAN PLT VOLUME 9.4 fl (7.5-11.1); MONO % 1.6 % (3.8-10.2); NEUT % 89.6 % (42.8-82.8); PLATELET COUNT 150 K/MM3 (134-434); RDW 24.5 % (11.6-15.6); WHITE BLOOD COUNT 16.2 K/mm3 (4.0-10.0)
[2019-03-17] MEDS: INSULIN SLIDING SCALE (NOVOLOG) 1 VIAL SQ SCH ×4 (06:38→21:00)
[2019-03-17] MEDS: LORazepam 2 MG/ML SDV VIAL IM PRN ×2 (06:39→20:00)
[2019-03-17 06:43] LABS: ALBUMIN 1.2 g/dl (3.4-5.0); BILIRUBIN,TOTAL 0.3 mg/dL (0.2-1); CREATININE 0.4 mg/dL (0.55-1.3); MAGNESIUM 1.8 mg/dL (1.8-2.4); POTASSIUM 3.8 mmol/L (3.5-5.1)
[2019-03-17 06:58] LABS: CALCIUM 6.4 mg/dL (8.5-10.1)
[2019-03-17] MEDS ORDERED: SODIUM PHOSPHATE - 0 MM in SODIUM CHLORIDE 250 ML IVPB ONE (07:02)
[2019-03-17] MEDS ORDERED: DEXTROSE 5%-WATER 100 ML IVPB ONE ×2 (08:56→17:23)
[2019-03-17] MEDS ORDERED: MEROPENEM 1 GM VIAL (RESTRICTED TO ID) IVPB ONE ×2 (08:56→17:23)
[2019-03-17] MEDS ORDERED: PT OWN MED DRAWER 7, Y5N ONE ×2 (08:57→12:11)
[2019-03-17] MEDS: ENOXAPARIN NA (PORCINE) 40 MG/0.4 ML DISP.SYRIN SQ SCH (09:13)
[2019-03-17] MEDS ORDERED: SODIUM PHOSPHATE - 45 MM in SODIUM CHLORIDE 500 ML IVPB ONE (09:30)
[2019-03-17 09:49] LABS: ANISOCYTOSIS 1+; MACROCYTOSIS 0; OVALOCYTE 1+; PLATELET ESTIMATE DECREASED; TARGET CELLS 1+
--- NOTE | 2019-03-17 11:11 | PATH ---
Surgical Pathology Report Patient Name: REG ASIF [facility]. Rec. #: [id number] /Age/Gender: 1970 (Age: 48) / F Account: [id number] Location: ICU [employer] WHEAT [employer]ER Taken: 03/12/2019 Received: 03/15/2019 Reported: 03/17/2019 Physicians: Som Krishnamurthy M.D. Specimen(s) Received A: PORTION OF SMALL BOWEL B: OMENTUM Clinical History Crohn's disease, small bowel blockage, perforated viscus Final Diagnosis A. PORTION OF SMALL BOWEL (ILEUM), RESECTION: SEGMENT OF ILEUM WITH PERFORATION AND ASSOCIATED ULCERATION, SEVERE ACUTE AND CHRONIC INFLAMMATION, VASCULAR CONGESTION, FOCAL GRANULATION TISSUE FORMATION, FIBROSIS, AND SEVERE SEROSITIS. VIABLE MARGINS. NEGATIVE FOR DYSPLASIA, TRANSMURAL LYMPHOCYTIC INFILTRATE, OR GRANULOMATOUS INFLAMMATION. B. PORTION OF OMENTUM, EXCISION: PORTION OF OMENTUM WITH SEVERE ACUTE AND CHRONIC INFLAMMATION, PREDOMINANTLY AT THE SEROSAL SURFACE (SEROSITIS). Electronically Signed Dipika Champagne M.D. Gross Description A. Specimen received in formalin labeled "portion of small bowel (ileum)" and consists of segment of small intestine measures 8.3 cm in length and 5cm in average circumference. The serosal surface reveals focal dark brown transmural perforation with adjacent white exudate. The distance from perforated area to the closest margin is 2 cm. The focus of perforation measures 2.5cm in greatest dimension. On opening, the small intestine in reveals focal restriction at the perforated area. No masses or polyp are present. Seasonal Package Handler sections are submitted in 8 cassettes. 1: one margin of resection (near perforation); 2: other margin of resection; 3 to 6: Perforated area; 7,8: Other medical sales representative areas B. Received in formalin, labeled "portion of omentum" it's a portion of adipose tissue measuring 9.0 x 2.5 x 1.5 cm. Serial sections reveal yellow homogeneous adipose tissue. Seasonal Package Handler sections submitted in 2 cassettes. __ KWS/03/16/2019 estelle/03/16/2019
--- NOTE | 2019-03-17 12:16 | PN ---
Progress Note, Physician History of Present Illness: continues to desat nutritionally still very poor still requiring bipap still very weak - Current Medication List Current Medications: Active Medications Enoxaparin Sodium (Lovenox -) 40 mg SQ DAILY [facility] Last Admin: 03/17/19 09:13 Dose: 40 mg Furosemide (Lasix Injection -) 40 mg IVPUSH BID@0600,1400 [facility] Hydromorphone HCl (Hydromorphone 10 Mg/50 Ml-Ns) 10 mg CASH APPLICATIONS ANALYST CASH APPLICATIONS ANALYST [facility]; Protocol Stop: 03/19/19 20:02 Last Admin: 03/16/19 14:53 Dose: 10 mg Metronidazole (Flagyl 500mg Premixed Ivpb -) 500 mg in 100 mls @ 100 mls/hr IVPB Q8H-IV [facility] Last Admin: 03/17/19 09:11 Dose: 100 mls/hr Meropenem 1 gm/ Dextrose 100 mls @ 200 mls/hr IVPB Q8H-IV [facility] Last Admin: 03/17/19 09:11 Dose: 200 mls/hr Norepinephrine Bitartrate 8, (000 mcg/ Sodium Chloride) 500 mls @ 18.75 mls/hr IV TITR [facility]; Protocol Last Titration: 03/17/19 09:00 Dose: 2 mcg/min, 7.5 mls/hr Sodium Phosphate 45 mm/ Sodium (Chloride) 515 mls @ 62.5 mls/hr IVPB ONCE ONE Stop: 03/17/19 17:44 Insulin Aspart (Novolog Vial Sliding Scale -) 1 vial SQ ACHS [facility]; Protocol Last Admin: 03/17/19 06:38 Dose: 4 units Ketorolac Tromethamine (Toradol Injection -) 30 mg IVPUSH Q6H PRN PRN Reason: PAIN LEVEL 6-10 Stop: 03/19/19 14:06 Last Admin: 03/17/19 01:17 Dose: 30 mg Lorazepam (Ativan Injection -) 0.5 mg IM Q6H PRN PRN Reason: ANXIETY Last Admin: 03/17/19 06:39 Dose: 0.5 mg Ondansetron HCl (Zofran Injection) 4 mg IVPUSH Q6H PRN PRN Reason: NAUSEA AND/OR VOMITING Last Admin: 03/14/19 05:07 Dose: 4 mg Vancomycin HCl (Vancomycin Oral Solution) 125 mg PO Q6HPO [facility] Last Admin: 03/17/19 05:51 Dose: 125 mg - Objective Vital Signs: Vital Signs Temperature 97.9 F 03/17/19 06:00 Pulse Rate 90 03/17/19 09:00 Respiratory Rate 14 03/17/19 08:00 Blood Pressure 128/81 03/17/19 09:00 O2 Sat by Pulse Oximetry (%) 95 03/17/19 10:00 Constitutional: Yes: Calm Cardiovascular: Yes: Regular Rate and Rhythm Respiratory: Yes: On BiPap Gastrointestinal: Yes: Soft, Hypoactive Bowel Sounds Musculoskeletal: Yes: WNL Extremities: Yes: WNL Neurological: Yes: Alert, Other Labs: CBC, BMP 03/17/19 05:20 03/17/19 05:20 INR, PTT INR 1.09 (0.83-1.09) 03/14/19 19:45 Assessment/Plan SBO versus flair of inflammatory bowel disease R/O GI source of infection Type I IDDM, PE HTN HLD CVA with mild left-sided weakness cdiff plan continue abx hydration advance as tolerated resp support rest as per icu cc 40 min dirrhoea improving
--- NOTE | 2019-03-17 12:37 | PN ---
Teaching Attending Note Name of Resident: Mukesh Pastor ATTENDING PHYSICIAN STATEMENT I saw and evaluated the patient. I reviewed the resident's note and discussed the case with the resident. I agree with the resident's findings and plan as documented. SUBJECTIVE: Pt seen and examined in the ICU. Remains on BiPAP, desaturates quickly when removed. Remains on levophed gtt. OBJECTIVE: Vital Signs Period Temp Pulse Resp BP Sys/Rapp Pulse Ox Last 24 Hr 97.9 F-98.1 F 80-99 14-20 95-143/54-81 93-98 Intake & Output 03/14/19 03/15/19 03/16/19 03/17/19 23:59 23:59 23:59 23:59 Intake Total 4560 900 1751.2 475 Output Total 1710 2650 1350 300 Balance 2850 -1750 401.2 175 Weight 73.6 kg Gen: agitated on BiPAP Heart: RRR Lung: decreased breath sounds at the bases Abd: soft, nontender Ext:+ edema CBC, BMP 03/17/19 05:20 03/17/19 05:20 Active Medications Enoxaparin Sodium (Lovenox -) 40 mg SQ DAILY [facility] Last Admin: 03/17/19 09:13 Dose: 40 mg Furosemide (Lasix Injection -) 40 mg IVPUSH BID@0600,1400 [facility] Hydromorphone HCl (Hydromorphone 10 Mg/50 Ml-Ns) 10 mg BRANCH MANAGER TRAINEE BRANCH MANAGER TRAINEE [facility]; Protocol Stop: 03/19/19 20:02 Last Admin: 03/16/19 14:53 Dose: 10 mg Metronidazole (Flagyl 500mg Premixed Ivpb -) 500 mg in 100 mls @ 100 mls/hr IVPB Q8H-IV [facility] Last Admin: 03/17/19 09:11 Dose: 100 mls/hr Meropenem 1 gm/ Dextrose 100 mls @ 200 mls/hr IVPB Q8H-IV [facility] Last Admin: 03/17/19 09:11 Dose: 200 mls/hr Norepinephrine Bitartrate 8, (000 mcg/ Sodium Chloride) 500 mls @ 18.75 mls/hr IV TITR [facility]; Protocol Last Titration: 03/17/19 11:00 Dose: 0 mcg/min, 0 mls/hr Sodium Phosphate 45 mm/ Sodium (Chloride) 515 mls @ 62.5 mls/hr IVPB ONCE ONE Stop: 03/17/19 17:44 Last Admin: 03/17/19 11:00 Dose: 62.5 mls/hr Insulin Aspart (Novolog Vial Sliding Scale -) 1 vial SQ [facility]; Protocol Last Admin: 03/17/19 06:38 Dose: 4 units Ketorolac Tromethamine (Toradol Injection -) 30 mg IVPUSH Q6H PRN PRN Reason: PAIN LEVEL 6-10 Stop: 03/19/19 14:06 Last Admin: 03/17/19 01:17 Dose: 30 mg Lorazepam (Ativan Injection -) 0.5 mg IM Q6H PRN PRN Reason: ANXIETY Last Admin: 03/17/19 06:39 Dose: 0.5 mg Ondansetron HCl (Zofran Injection) 4 mg IVPUSH Q6H PRN PRN Reason: NAUSEA AND/OR VOMITING Last Admin: 03/14/19 05:07 Dose: 4 mg Vancomycin HCl (Vancomycin Oral Solution) 125 mg PO Q6HPO [facility] Last Admin: 03/17/19 12:11 Dose: 125 mg ASSESSMENT AND PLAN: Acute Hypoxic Respiratory Failure Perforated Small Bowel s/p ex-lap/RAYSHAWN/segmental SB resection Crohn's Disease Peritonitis +C diff Colitis Septic Shock Lactic Acidosis Volume Overload h/o PE HTN DM Hyperlipidemia h/o CVA - continue antibiotics - lasix BID today - monitor urine output, creatinine - keep net negative - monitor and replete lytes - titrate pressors to maintain MAP >65 - BiPAP to assist in work of breathing - pain control - incentive spirometry - continue anticoagulation - continue ICU monitoring critical care time spent in revieiwing chart, evaluating patient and formulating plan 35 min
[2019-03-17] MEDS: FUROSEMIDE 40 MG/4 ML INJECTABLE VIAL IVPUSH SCH ×2 (12:40→18:24)
[2019-03-17] MEDS ORDERED: ENOXAPARIN NA (PORCINE) 100 MG/1 ML DISP.SYRIN SQ SCH (13:00)
[2019-03-17] MEDS ORDERED: FUROSEMIDE 40 MG/4 ML INJECTABLE VIAL IVPUSH SCH (14:00)
[2019-03-17] MEDS: HYDROmorphone *PCA* 10MG/50ML DISP.SYRIN PCA SCH ×2 (14:05→18:00)
--- NOTE | 2019-03-17 14:27 | PN ---
Physical Exam: SUBJECTIVE: Patient seen and examined. No acute events overnight. Denies chest pain, f/c. Patient is thirsty. OBJECTIVE: Vital Signs Period Temp Pulse Resp BP Sys/Rapp Pulse Ox Last 24 Hr 97.9 F-98.1 F 80-99 14-20 95-143/59-81 93-98 GEN: Mild distress. AAOx3 HEENT: NC/AT, EOMI. Normal voice. Supple neck w/ FROM CV: S1/S2, RRR, no m/r/g LUNG: On BiPaP. CTAB, no wheezes, crackles, rales, rhonchi GI: +BS, soft, nt. Midline scar covered w/ clean dressing SKIN: warm, dry, normal turgor EXT: left arm edematous Laboratory Results - last 24 hr 03/16/19 03/16/19 03/17/19 17:00 22:41 05:20 WBC RBC Hgb Hct MCV MCH MCHC RDW Plt Count MPV Absolute Neuts (auto) Neutrophils % Neutrophils % (Manual) Band Neutrophils % Lymphocytes % Lymphocytes % (Manual) Monocytes % Monocytes % (Manual) Eosinophils % Eosinophils % (Manual) Basophils % Basophils % (Manual) Myelocytes % (Man) Promyelocytes % (Man) Blast Cells % (Manual) Nucleated RBC % Metamyelocytes Hypochromia Platelet Estimate Polychromasia Poikilocytosis Anisocytosis Microcytosis Macrocytosis Target Cells Ovalocytes PTT (Actin FS) 24.9 L Sodium 141 Potassium 4.0 Chloride 108 H Carbon Dioxide 27 Anion Gap 6 L BUN 10.5 Creatinine 0.4 L Est GFR (CKD-EPI)AfAm 141.75 Est GFR (CKD-EPI)NonAf 122.30 POC Glucometer 265 Random Glucose 200 H Calcium 6.8 L* Phosphorus Magnesium Total Bilirubin AST ALT Alkaline Phosphatase Total Protein Albumin 03/17/19 03/17/19 03/17/19 05:20 05:20 05:29 WBC 16.2 H RBC 3.60 Hgb 8.7 L Hct 27.2 L MCV 75.4 L MCH 24.0 L MCHC 31.9 L RDW 24.5 H Plt Count 150 D MPV 9.4 Absolute Neuts (auto) 14.6 H Neutrophils % 89.6 H Neutrophils % (Manual) 94.0 H Band Neutrophils % 3.0 Lymphocytes % 8.4 D Lymphocytes % (Manual) 2.0 L D Monocytes % 1.6 L Monocytes % (Manual) 0 L D Eosinophils % 0.3 D Eosinophils % (Manual) 0.0 D Basophils % 0.1 Basophils % (Manual) 0.0 Myelocytes % (Man) 0 D Promyelocytes % (Man) 0 Blast Cells % (Manual) 0 Nucleated RBC % 1 H Metamyelocytes 0 Hypochromia 1+ Platelet Estimate Decreased Polychromasia 0 Poikilocytosis 1+ Anisocytosis 1+ Microcytosis 1+ Macrocytosis 0 Target Cells 1+ Ovalocytes 1+ PTT (Actin FS) Sodium 141 Potassium 3.8 Chloride 109 H Carbon Dioxide 22 Anion Gap 10 BUN 13.0 Creatinine 0.4 L Est GFR (CKD-EPI)AfAm 141.75 Est GFR (CKD-EPI)NonAf 122.30 POC Glucometer 229 Random Glucose 244 H Calcium 6.4 L* Phosphorus 1.0 L* Magnesium 1.8 Total Bilirubin 0.3 AST 24 ALT 10 L Alkaline Phosphatase 145 H Total Protein 4.0 L Albumin 1.2 L 03/17/19 12:19 WBC RBC Hgb Hct MCV MCH MCHC RDW Plt Count MPV Absolute Neuts (auto) Neutrophils % Neutrophils % (Manual) Band Neutrophils % Lymphocytes % Lymphocytes % (Manual) Monocytes % Monocytes % (Manual) Eosinophils % Eosinophils % (Manual) Basophils % Basophils % (Manual) Myelocytes % (Man) Promyelocytes % (Man) Blast Cells % (Manual) Nucleated RBC % Metamyelocytes Hypochromia Platelet Estimate Polychromasia Poikilocytosis Anisocytosis Microcytosis Macrocytosis Target Cells Ovalocytes PTT (Actin FS) Sodium Potassium Chloride Carbon Dioxide Anion Gap BUN Creatinine Est GFR (CKD-EPI)AfAm Est GFR (CKD-EPI)NonAf POC Glucometer 156 Random Glucose Calcium Phosphorus Magnesium Total Bilirubin AST ALT Alkaline Phosphatase Total Protein Albumin Active Medications Generic Name Dose Route Start Last Admin Trade Name Freq PRN Reason Stop Dose Admin Enoxaparin Sodium 110 mg 03/17/19 13:00 Lovenox - SQ DAILY [facility] Furosemide 40 mg 03/17/19 12:15 03/17/19 12:40 Lasix Injection - IVPUSH 40 mg BID@0600,1400 [facility] Administration Hydromorphone HCl 10 mg 03/14/19 14:01 03/16/19 14:53 Hydromorphone 10 Mg/50 Ml-Ns LINUX ADMINISTRATOR 03/19/19 20:02 10 mg LINUX ADMINISTRATOR [facility] Administration Protocol Metronidazole 500 mg in 100 mls @ 100 mls/hr 03/15/19 13:00 03/17/19 09:11 Flagyl 500mg Premixed Ivpb - IVPB 100 mls/hr Q8H-IV [facility] Administration Meropenem 1 gm/ Dextrose 100 mls @ 200 mls/hr 03/15/19 13:15 03/17/19 09:11 IVPB 200 mls/hr Q8H-IV [facility] Administration Norepinephrine Bitartrate 8, 500 mls @ 18.75 mls/hr 03/15/19 19:45 03/17/19 11:00 000 mcg/ Sodium Chloride IV 0 mcg/min TITR [facility] 0 mls/hr Titration Protocol 5 MCG/MIN Sodium Phosphate 45 mm/ Sodium 515 mls @ 62.5 mls/hr 03/17/19 09:30 03/17/19 11:00 Chloride IVPB 03/17/19 17:44 62.5 mls/hr ONCE ONE Administration Insulin Aspart 1 vial 03/12/19 16:30 03/17/19 12:36 Novolog Vial Sliding Scale - SQ 2 units ACHS [facility] Administration Protocol Ketorolac Tromethamine 30 mg 03/14/19 14:07 03/17/19 01:17 Toradol Injection - IVPUSH 03/19/19 14:06 30 mg Q6H PRN Administration PAIN LEVEL 6-10 Lorazepam 0.5 mg 03/14/19 13:10 03/17/19 06:39 Ativan Injection - IM 0.5 mg Q6H PRN Administration ANXIETY Ondansetron HCl 4 mg 03/11/19 20:31 03/14/19 05:07 Zofran Injection IVPUSH 4 mg Q6H PRN Administration NAUSEA AND/OR VOMITING Vancomycin HCl 125 mg 03/15/19 18:00 03/17/19 12:11 Vancomycin Oral Solution PO 125 mg Q6HPO [facility] Administration ASSESSMENT/PLAN: 48F PMH IDDM, PE on xarelto, frequent DKA, HTN, HLD, CVA w/ left sided weakness , recent hospitalization at [facility] September 2018 admitted to ICU for SBO. Developed pneumoperitoneum s/p ex-lap. POD 5 Neuro - Pain ctrl dilaudid LINUX ADMINISTRATOR - Tylenol for pain/fever ctrl CV - s/p sinus tachy - No longer hypotensive or tachycardic - Maintain MAP >65 Respiratory - c/w BiPAP to assist in work of breathing, take off when feeding. - pt not hypercapnic at this time - Decreased FiO2 on BiPap and patient desaturated, not ready to come off - pt desats while off it to 80's - lasix 20 IV given - Today only: lasix IV 40 BID - monitor resp status - f/u CXR - IS GI - Crohn's flair likely, pneumoperitoneum s/p ex-lap - lysis of adhesions, segmental resection of small intestinal perforation with side-side stapled anastomosis, abdominal washout, resection of portion of omentum - advanced diet to clears, removed ng tube, not tolerating PO liquids or meds. - Will continue zosyn and add on meropenem and vanco/flagyl for esbl and c diff respectively. - Pt is refusing Vanco or xarelto PO, so pt switched to lovenox 40SQ. - continue steroids IV for crohn's flare - GI recs appreciated ID - ID recs appreciated - d/c zosyn, starting meorpenem 1g TID due to ESBL and klebsiella pna in wound culture. - Cx + LF neg bacilli - UCx + VRE - CDiff Ag and toxin pos - uptrending WBC 8 > 13.8 > 16.2 - c/w flagyl - c/w meropenam - c/w PO vanc FEN - d/c fluids, lasix given - NPO, NGT decompression - Lytes in AM, replete PRN - Phos repleted - Monitor UrO, Cr PPx: LVX Discussed patient w/ her outside GI ([facility], ENA Morales). Provided update on patient course. Was informed patient started induction dose of remacade but was not able to receive following dosages 2/2 hospitalization. Patient needs induction dose again. [facility] microbiology panel in January 2019 negative, there was an indeterminate quantiferon gold but negative CXR. // Visit type - Emergency Visit Emergency Visit: Yes ED Registration Date: 03/09/19 Care time: The patient presented to the Emergency Department on the above date and was hospitalized for further evaluation of their emergent condition. - New Patient This patient is new to me today: No - Critical Care Critical Care patient: Yes Total Critical Care Time (in minutes): 35 Critical Care Statement: The care of this patient involved high complexity decision making to prevent further life threatening deterioration of the patient 's condition and/or to evaluate & treat vital organ system(s) failure or risk of failure.
--- NOTE | 2019-03-17 15:36 | PN ---
Progress Note, Physician Chief Complaint: having abdominal pain, but not pressing the dilaudid fitness sales consultant. History of Present Illness: Patient is a 48 year-old female with a past medical history of diabetes type 1 with frequent admissions for DKA, HTN, HLD, CVA with left-sided weakness. Recent hospitalization at [facility] September 2018 for SBO. Patient also states she had open heart surgery at [facility] at or about the same time as surgery for the SBO . Patient developed sharp abdominal pain and in the ED had NGT placed with > 1000cc output greenish/brown fluid. She was taken emergently to the OR for a perforated viscus and is now POD #[address] Krishnamurthy. - Current Medication List Current Medications: Active Medications Enoxaparin Sodium (Lovenox -) 110 mg SQ DAILY [facility] Furosemide (Lasix Injection -) 40 mg IVPUSH BID@0600,1400 [facility] Last Admin: 03/17/19 12:40 Dose: 40 mg Hydromorphone HCl (Hydromorphone 10 Mg/50 Ml-Ns) 10 mg CLINICAL DOCUMENTATION MANAGER CLINICAL DOCUMENTATION MANAGER [facility]; Protocol Stop: 03/19/19 20:02 Last Admin: 03/16/19 14:53 Dose: 10 mg Metronidazole (Flagyl 500mg Premixed Ivpb -) 500 mg in 100 mls @ 100 mls/hr IVPB Q8H-IV [facility] Last Admin: 03/17/19 09:11 Dose: 100 mls/hr Meropenem 1 gm/ Dextrose 100 mls @ 200 mls/hr IVPB Q8H-IV [facility] Last Admin: 03/17/19 09:11 Dose: 200 mls/hr Norepinephrine Bitartrate 8, (000 mcg/ Sodium Chloride) 500 mls @ 18.75 mls/hr IV TITR [facility]; Protocol Last Titration: 03/17/19 11:00 Dose: 0 mcg/min, 0 mls/hr Sodium Phosphate 45 mm/ Sodium (Chloride) 515 mls @ 62.5 mls/hr IVPB ONCE ONE Stop: 03/17/19 17:44 Last Admin: 03/17/19 11:00 Dose: 62.5 mls/hr Insulin Aspart (Novolog Vial Sliding Scale -) 1 vial SQ ACHS [facility]; Protocol Last Admin: 03/17/19 12:36 Dose: 2 units Ketorolac Tromethamine (Toradol Injection -) 30 mg IVPUSH Q6H PRN PRN Reason: PAIN LEVEL 6-10 Stop: 03/19/19 14:06 Last Admin: 03/17/19 01:17 Dose: 30 mg Lorazepam (Ativan Injection -) 0.5 mg IM Q6H PRN PRN Reason: ANXIETY Last Admin: 03/17/19 06:39 Dose: 0.5 mg Ondansetron HCl (Zofran Injection) 4 mg IVPUSH Q6H PRN PRN Reason: NAUSEA AND/OR VOMITING Last Admin: 03/14/19 05:07 Dose: 4 mg Vancomycin HCl (Vancomycin Oral Solution) 125 mg PO Q6HPO [facility] Last Admin: 03/17/19 12:11 Dose: 125 mg - Objective Vital Signs: Vital Signs Temperature 97.9 F 03/17/19 06:00 Pulse Rate 90 03/17/19 09:00 Respiratory Rate 14 03/17/19 08:00 Blood Pressure 101/67 03/17/19 11:00 O2 Sat by Pulse Oximetry (%) 96 03/17/19 12:15 Labs: CBC, BMP 03/17/19 05:20 03/17/19 05:20 INR, PTT INR 1.09 (0.83-1.09) 03/14/19 19:45 Problem List - Problems (1) Perforated abdominal viscus Assessment/Plan: s/p Ex-lap/RAYSHAWN/partial SB and omental resection with anastomosis/washout on 03/12 appreciate surgical and ID consultation post-op pain mgmt with dilaudid CLINICAL DOCUMENTATION MANAGER on meropenem and flagyl per ID. NPO until cleared by surgery wound care as per surgery having copious amounts of loose diarrhea, + c diff. Code(s): XFL9862 - (2) Abdominal pain Assessment/Plan: Patient is/p ex-lap/RAYSHAWN/partial SB and omental resection with anastomosis/ washout appreciate surgical and ID consultation post-op pain mgmt with dilaudid CLINICAL DOCUMENTATION MANAGER on meropenem and flagyl NPO, advance diet per surgery wound care as per surgery Code(s): R10.9 - UNSPECIFIED ABDOMINAL PAIN Qualifiers: Abdominal location: generalized Qualified Code(s): R10.84 - Generalized abdominal pain (3) C. difficile diarrhea Assessment/Plan: + for c diff toxin and antigen on oral vanco ID following monitor output has rectal tube in place Code(s): A04.72 - ENTEROCOLITIS D/T CLOSTRIDIUM DIFFICILE, NOT SPCF RECUR (4) Diabetes Assessment/Plan: not in DKA. on novolog ss. monitor bgms anion gap within normal limits Code(s): E11.9 - TYPE 2 DIABETES MELLITUS WITHOUT COMPLICATIONS (5) ESBL (extended spectrum beta-lactamase) producing bacteria infection Assessment/Plan: esbl in wound culture. continue IV antibiotics per ID maintain contact precautions. Code(s): A49.9 - BACTERIAL INFECTION, UNSPECIFIED; Z16.12 - EXTENDED SPECTRUM BETA LACTAMASE (ESBL) RESISTANCE (6) HTN (hypertension) Assessment/Plan: hypotensive today, ICU monitoring with frequent checks on pressors for support. Code(s): I10 - ESSENTIAL (PRIMARY) HYPERTENSION (7) Left-sided weakness Assessment/Plan: PT once more stable Code(s): R53.1 - WEAKNESS (8) Acute respiratory failure Assessment/Plan: on bipap support. care per pulmonary on solumedrol Code(s): J96.00 - ACUTE RESPIRATORY FAILURE, UNSP W HYPOXIA OR HYPERCAPNIA (9) Acute Crohn's disease Assessment/Plan: lysis of adhesions, segmental resection of small intestinal perforation with side-side stapled anastomosis, abdominal washout, resection of portion of omentum. advance diet as per surgery. on meropenem, flagyl. GI following. Code(s): K50.90 - CROHN'S DISEASE, UNSPECIFIED, WITHOUT COMPLICATIONS (10) Prophylactic measure Assessment/Plan: NPO monitor electrolytes IVF DVT heparin sq Dispo requires ICU care full code Code(s): Z29.9 - ENCOUNTER FOR PROPHYLACTIC MEASURES, UNSPECIFIED Visit type - Emergency Visit Emergency Visit: Yes ED Registration Date: 03/09/19 Care time: The patient presented to the Emergency Department on the above date and was hospitalized for further evaluation of their emergent condition. - New Patient This patient is new to me today: No - Critical Care Critical Care patient: Yes Total Critical Care Time (in minutes): 60 Critical Care Statement: The care of this patient involved high complexity decision making to prevent further life threatening deterioration of the patient 's condition and/or to evaluate & treat vital organ system(s) failure or risk of failure.
--- NOTE | 2019-03-17 16:56 | PN.GI ---
GI Progress Note Subjective: Pt seen/examined, remains on BIPAP, reporting abdominal pain, thirsty, diarrhea improving per nursing staff (~500cc over 24 hours). No blood. Off pressors. - Objective Vital Signs: Vital Signs Temperature 98.5 F 03/17/19 16:00 Pulse Rate 95 H 03/17/19 16:00 Respiratory Rate 15 03/17/19 16:00 Blood Pressure 111/68 03/17/19 16:00 O2 Sat by Pulse Oximetry (%) 93 L 03/17/19 16:06 Constitutional: Other (slightly restless) Cardiovascular: Yes: WNL, Regular Rate and Rhythm Respiratory: Yes: WNL, Regular, CTA Bilaterally, Other (on BIPAP) ...Palpate: Yes: Other (Abd soft, tender on palpation diffusely +dressing in place, , non distended, no rebound) ...Rectal Exam: Yes: Other (flexiseal in place, loose brown stool) Labs: CBC, BMP 03/17/19 05:20 03/17/19 05:20 INR, PTT INR 1.09 (0.83-1.09) 03/14/19 19:45 Problem List - Problems (1) C. difficile diarrhea Assessment/Plan: Diarrhea improving on flagyl and vancomycin. Recently on course of prednisone being managed by GI at [facility] for reported crohns disease now tapered off. -Continue to monitor stool output -Monitor and replete electrolytes -Continue po vancomycin and IV flagyl -Monitor wcc -Further recommendations per ID Code(s): A04.72 - ENTEROCOLITIS D/T CLOSTRIDIUM DIFFICILE, NOT SPCF RECUR (2) Small bowel perforation Assessment/Plan: S/p ex lap and small bowel resection with ileal perforation, POD#5. Path revealing severe serositis. -Will need to obtain outside records and further clarify prior workup/ endoscopies ?diagnosis of crohns as surgical path does not appear consistent. -Further recommendations and post op care per surgery team. Code(s): K63.1 - PERFORATION OF INTESTINE (NONTRAUMATIC)
[2019-03-18] MEDS ORDERED: LORazepam 2 MG/ML SDV VIAL ONE
[2019-03-18] MEDS: VANCOMYCIN 250 MG/5 ML ORAL SOLUTION PO SCH ×4 (00:30→16:59)
[2019-03-18] MEDS ORDERED: MEROPENEM 1 GM VIAL (RESTRICTED TO ID) IVPB ONE ×2 (02:14→08:46)
[2019-03-18] MEDS ORDERED: DEXTROSE 5%-WATER 100 ML IVPB ONE ×2 (02:14→08:46)
[2019-03-18] MEDS: NOREPINEPHRINE BITARTRATE 8,000 MCG in SODIUM CHLORIDE 492 ML IV SCH (02:33)
[2019-03-18] MEDS: MEROPENEM 1 GM in DEXTROSE 5%-WATER 100 ML IVPB SCH ×3 (02:34→20:00)
[2019-03-18] MEDS ORDERED: INSULIN (NOVOLOG) ASPART 100 UNITS/ML 10ML VIAL ONE (05:53)
[2019-03-18] MEDS: FUROSEMIDE 40 MG/4 ML INJECTABLE VIAL IVPUSH SCH ×2 (06:55→14:40)
[2019-03-18] MEDS: INSULIN SLIDING SCALE (NOVOLOG) 1 VIAL SQ SCH ×4 (07:00→23:00)
[2019-03-18 07:13] LABS: BASO % 0.3 % (0-2.0); EOS % 1.2 % (0-4.5); HEMATOCRIT 27.7 % (32.4-45.2); LYMPH % 16.8 % (8-40); MCH 24.5 pg (25.7-33.7); MCHC 32.4 g/dl (32.0-36.0); MEAN CELL VOLUME 75.6 fl (80-96); MEAN PLT VOLUME 9.5 fl (7.5-11.1); MONO % 1.8 % (3.8-10.2); NEUT % 79.9 % (42.8-82.8); PLATELET COUNT 114 K/MM3 (134-434); RBC 3.66 M/mm3 (3.60-5.2); RDW 24.3 % (11.6-15.6); WHITE BLOOD COUNT 7.8 K/mm3 (4.0-10.0)
[2019-03-18 07:34] LABS: ALBUMIN 1.2 g/dl (3.4-5.0); BILIRUBIN,TOTAL 0.5 mg/dL (0.2-1); CREATININE 0.4 mg/dL (0.55-1.3); MAGNESIUM 1.5 mg/dL (1.8-2.4); PHOSPHOROUS 1.6 mg/dL (2.5-4.9); POTASSIUM 3.1 mmol/L (3.5-5.1); TOT PROT 3.9 g/dl (6.4-8.2)
[2019-03-18 07:35] LABS: CALCIUM 6.5 mg/dL (8.5-10.1)
[2019-03-18] MEDS ORDERED: MAGNESIUM SULFATE IN WATER 2 GM/50 ML IVPB IVPB ONE (08:44)
[2019-03-18] MEDS: KCL 10 MEQ IVPB 10 MEQ/100 ML INFUS.BAG IVPB SCH ×3 (09:20→19:55)
[2019-03-18] MEDS: ENOXAPARIN NA (PORCINE) 60 MG/0.6 ML DISP.SYRIN SQ SCH (09:21)
[2019-03-18] MEDS ORDERED: SODIUM PHOSPHATE - 45 MM in SODIUM CHLORIDE 500 ML IVPB ONE (09:30)
--- NOTE | 2019-03-18 10:03 | PN ---
Progress Note, Physician Chief Complaint: still having abdominal pain History of Present Illness: Patient is a 48 year-old female with a past medical history of diabetes type 1 with frequent admissions for DKA, HTN, HLD, CVA with left-sided weakness. Recent hospitalization at [facility] September 2018 for SBO. Patient also states she had open heart surgery at [facility] at or about the same time as surgery for the SBO . Patient developed sharp abdominal pain and in the ED had NGT placed with > 1000cc output greenish/brown fluid. She was taken emergently to the OR for a perforated viscus and is now POD #[address] Krishnamurthy. - Current Medication List Current Medications: Active Medications Enoxaparin Sodium (Lovenox -) 110 mg SQ DAILY [facility] Last Admin: 03/18/19 09:21 Dose: 110 mg Furosemide (Lasix Injection -) 40 mg IVPUSH BID@0600,1400 [facility] Last Admin: 03/18/19 06:55 Dose: 40 mg Hydromorphone HCl (Hydromorphone 10 Mg/50 Ml-Ns) 10 mg BIODIESEL PLANT SUPERINTENDENT BIODIESEL PLANT SUPERINTENDENT [facility]; Protocol Stop: 03/19/19 20:02 Last Admin: 03/17/19 18:00 Dose: 10 mg Metronidazole (Flagyl 500mg Premixed Ivpb -) 500 mg in 100 mls @ 100 mls/hr IVPB Q8H-IV [facility] Last Admin: 03/18/19 09:20 Dose: 100 mls/hr Meropenem 1 gm/ Dextrose 100 mls @ 200 mls/hr IVPB Q8H-IV [facility] Last Admin: 03/18/19 09:22 Dose: 200 mls/hr Norepinephrine Bitartrate 8, (000 mcg/ Sodium Chloride) 500 mls @ 18.75 mls/hr IV TITR [facility]; Protocol Last Admin: 03/18/19 02:33 Dose: Not Given Potassium Chloride (Potassium Chloride 10 Meq Premix Ivpb -) 10 meq in 100 mls @ 100 mls/hr IVPB Q60M [facility] Stop: 03/18/19 10:49 Last Admin: 03/18/19 09:20 Dose: 100 mls/hr Sodium Phosphate 45 mm/ Sodium (Chloride) 515 mls @ 62.5 mls/hr IVPB ONCE ONE Stop: 03/18/19 17:44 Insulin Aspart (Novolog Vial Sliding Scale -) 1 vial SQ ACHS [facility]; Protocol Last Admin: 03/18/19 07:00 Dose: 4 units Ketorolac Tromethamine (Toradol Injection -) 30 mg IVPUSH Q6H PRN PRN Reason: PAIN LEVEL 6-10 Stop: 03/19/19 14:06 Last Admin: 03/17/19 21:20 Dose: 30 mg Lorazepam (Ativan Injection -) 0.5 mg IM Q6H PRN PRN Reason: ANXIETY Last Admin: 03/17/19 20:00 Dose: 0.5 mg Ondansetron HCl (Zofran Injection) 4 mg IVPUSH Q6H PRN PRN Reason: NAUSEA AND/OR VOMITING Last Admin: 03/14/19 05:07 Dose: 4 mg Vancomycin HCl (Vancomycin Oral Solution) 125 mg PO Q6HPO [facility] Last Admin: 03/18/19 06:55 Dose: Not Given - Objective Vital Signs: Vital Signs Temperature 99.1 F 03/18/19 06:00 Pulse Rate 106 H 03/18/19 08:00 Respiratory Rate 18 03/18/19 08:00 Blood Pressure 118/66 03/18/19 08:00 O2 Sat by Pulse Oximetry (%) 95 03/18/19 08:00 Constitutional: Yes: Anxious Eyes: Yes: WNL HENT: Yes: Atraumatic Neck: Yes: WNL Cardiovascular: Yes: Regular Rate and Rhythm Respiratory: Yes: CTA Bilaterally Gastrointestinal: Yes: Soft, Other (surgical dressing c/d/i.) ...Rectal Exam: Yes: Deferred Genitourinary: Yes: Lott Present Musculoskeletal: Yes: Muscle Pain, Muscle Weakness Extremities: Yes: WNL Edema: Yes (generalized) Edema: LUE: 1+, RUE: 1+, LLE: 1+, RLE: 1+ Peripheral Pulses WNL: Yes Integumentary: Yes: WNL Wound/Incision: Yes: Dressing Dry and Intact Neurological: Yes: Alert, Oriented ...Motor Strength: WNL Psychiatric: Yes: Other (anxious) Labs: CBC, BMP 03/18/19 05:30 03/18/19 05:30 INR, PTT INR 1.09 (0.83-1.09) 03/14/19 19:45 Problem List - Problems (1) Perforated abdominal viscus Assessment/Plan: s/p Ex-lap/RAYSHAWN/partial SB and omental resection with anastomosis/washout on 03/12 appreciate surgical and ID consultation post-op pain mgmt with dilaudid BIODIESEL PLANT SUPERINTENDENT on meropenem and flagyl per ID. NPO until cleared by surgery wound care as per surgery having copious amounts of loose diarrhea, + c diff. Code(s): [id number] - (2) Abdominal pain Assessment/Plan: Patient is/p ex-lap/RAYSHAWN/partial SB and omental resection with anastomosis/ washout appreciate surgical and ID consultation post-op pain mgmt with dilaudid BIODIESEL PLANT SUPERINTENDENT on meropenem and flagyl NPO, advance diet per surgery wound care as per surgery Code(s): R10.9 - UNSPECIFIED ABDOMINAL PAIN Qualifiers: Abdominal location: generalized Qualified Code(s): R10.84 - Generalized abdominal pain (3) C. difficile diarrhea Assessment/Plan: + for c diff toxin and antigen on oral vanco ID following monitor output has rectal tube in place Code(s): A04.72 - ENTEROCOLITIS D/T CLOSTRIDIUM DIFFICILE, NOT SPCF RECUR (4) Diabetes Assessment/Plan: not in DKA. on novolog ss. monitor bgms anion gap within normal limits Code(s): E11.9 - TYPE 2 DIABETES MELLITUS WITHOUT COMPLICATIONS (5) ESBL (extended spectrum beta-lactamase) producing bacteria infection Assessment/Plan: esbl in wound culture. continue IV antibiotics per ID maintain contact precautions. Code(s): A49.9 - BACTERIAL INFECTION, UNSPECIFIED; Z16.12 - EXTENDED SPECTRUM BETA LACTAMASE (ESBL) RESISTANCE (6) HTN (hypertension) Assessment/Plan: BP improving. ICU monitoring with frequent checks on pressors for support. Code(s): I10 - ESSENTIAL (PRIMARY) HYPERTENSION (7) Left-sided weakness Assessment/Plan: PT once more stable Code(s): R53.1 - WEAKNESS (8) Acute respiratory failure Assessment/Plan: on bipap support. care per pulmonary on solumedrol Code(s): J96.00 - ACUTE RESPIRATORY FAILURE, UNSP W HYPOXIA OR HYPERCAPNIA (9) Acute Crohn's disease Assessment/Plan: lysis of adhesions, segmental resection of small intestinal perforation with side-side stapled anastomosis, abdominal washout, resection of portion of omentum. advance diet as per surgery. on meropenem, flagyl. GI following. Code(s): K50.90 - CROHN'S DISEASE, UNSPECIFIED, WITHOUT COMPLICATIONS (10) Prophylactic measure Assessment/Plan: NPO monitor electrolytes IVF DVT on lovenox Dispo requires ICU care full code Code(s): Z29.9 - ENCOUNTER FOR PROPHYLACTIC MEASURES, UNSPECIFIED Visit type - Emergency Visit Emergency Visit: Yes ED Registration Date: 03/09/19 Care time: The patient presented to the Emergency Department on the above date and was hospitalized for further evaluation of their emergent condition. - New Patient This patient is new to me today: No - Critical Care Critical Care patient: Yes Total Critical Care Time (in minutes): 30 Critical Care Statement: The care of this patient involved high complexity decision making to prevent further life threatening deterioration of the patient 's condition and/or to evaluate & treat vital organ system(s) failure or risk of failure.
--- NOTE | 2019-03-18 11:36 | PN ---
Progress Note, Physician History of Present Illness: more awake and alert still on bipap desats when removed - Current Medication List Current Medications: Active Medications Enoxaparin Sodium (Lovenox -) 110 mg SQ DAILY [facility] Last Admin: 03/18/19 09:21 Dose: 110 mg Furosemide (Lasix Injection -) 40 mg IVPUSH BID@0600,1400 [facility] Last Admin: 03/18/19 06:55 Dose: 40 mg Hydromorphone HCl (Hydromorphone 10 Mg/50 Ml-Ns) 10 mg LIVESTOCK YARD ATTENDANT LIVESTOCK YARD ATTENDANT [facility]; Protocol Stop: 03/19/19 20:02 Last Admin: 03/17/19 18:00 Dose: 10 mg Metronidazole (Flagyl 500mg Premixed Ivpb -) 500 mg in 100 mls @ 100 mls/hr IVPB Q8H-IV [facility] Last Admin: 03/18/19 09:20 Dose: 100 mls/hr Meropenem 1 gm/ Dextrose 100 mls @ 200 mls/hr IVPB Q8H-IV [facility] Last Admin: 03/18/19 09:22 Dose: 200 mls/hr Norepinephrine Bitartrate 8, (000 mcg/ Sodium Chloride) 500 mls @ 18.75 mls/hr IV TITR [facility]; Protocol Last Admin: 03/18/19 02:33 Dose: Not Given Sodium Phosphate 45 mm/ Sodium (Chloride) 515 mls @ 62.5 mls/hr IVPB ONCE ONE Stop: 03/18/19 17:44 Last Admin: 03/18/19 10:33 Dose: 62.5 mls/hr Potassium Chloride (Potassium Chloride 10 Meq Premix Ivpb -) 10 meq in 100 mls @ 100 mls/hr IVPB Q60M [facility] Stop: 03/18/19 13:14 Insulin Aspart (Novolog Vial Sliding Scale -) 1 vial SQ ACHS [facility]; Protocol Last Admin: 03/18/19 10:54 Dose: 2 units Ketorolac Tromethamine (Toradol Injection -) 30 mg IVPUSH Q6H PRN PRN Reason: PAIN LEVEL 6-10 Stop: 03/19/19 14:06 Last Admin: 03/17/19 21:20 Dose: 30 mg Lorazepam (Ativan Injection -) 0.5 mg IM Q6H PRN PRN Reason: ANXIETY Last Admin: 03/17/19 20:00 Dose: 0.5 mg Ondansetron HCl (Zofran Injection) 4 mg IVPUSH Q6H PRN PRN Reason: NAUSEA AND/OR VOMITING Last Admin: 03/14/19 05:07 Dose: 4 mg Vancomycin HCl (Vancomycin Oral Solution) 125 mg PO Q6HPO [facility] Last Admin: 03/18/19 06:55 Dose: Not Given - Objective Vital Signs: Vital Signs Temperature 99.3 F 03/18/19 10:00 Pulse Rate 107 H 03/18/19 10:00 Respiratory Rate 15 03/18/19 10:00 Blood Pressure 115/71 03/18/19 10:00 O2 Sat by Pulse Oximetry (%) 95 03/18/19 08:00 Constitutional: Yes: No Distress, Calm Cardiovascular: Yes: S1, S2 Respiratory: Yes: On BiPap Gastrointestinal: Yes: Normal Bowel Sounds, Soft Musculoskeletal: Yes: WNL Extremities: Yes: WNL Wound/Incision: Yes: Clean/Dry Neurological: Yes: Alert, Oriented Psychiatric: Yes: Alert, Oriented Labs: CBC, BMP 03/18/19 05:30 03/18/19 05:30 INR, PTT INR 1.09 (0.83-1.09) 03/14/19 19:45 Assessment/Plan SBO versus flair of inflammatory bowel disease R/O GI source of infection Type I IDDM, PE HTN HLD CVA with mild left-sided weakness cdiff plan continue abx hydration advance as tolerated resp support rest as per icu fluid cx reports noted will start patient on zyox also will cover urine cc 40 min
--- NOTE | 2019-03-18 11:44 | PN ---
Progress Note, Physician Chief Complaint: Abdominal Pain History of Present Illness: 48yo female PMH HTN, CVA (left sided hemiparesis), HLD, IDDM, DKA resulting in multiple admissions, dysphagia, gastroparesis, esophageal stricture (EGD 02/14), c/diff (10/2018), SBO September 2018 (s/p SB resection at [facility] as per pt report) presented to [place] ED on the afternoon of 12/21 with complaints of N/V/D/ abd pain intermittently for years. She has had persistent pain but has had improved hemodynamics after IVF resuscitation. - Current Medication List Current Medications: Active Medications Enoxaparin Sodium (Lovenox -) 110 mg SQ DAILY [facility] Last Admin: 03/18/19 09:21 Dose: 110 mg Furosemide (Lasix Injection -) 40 mg IVPUSH BID@0600,1400 [facility] Last Admin: 03/18/19 06:55 Dose: 40 mg Hydromorphone HCl (Hydromorphone 10 Mg/50 Ml-Ns) 10 mg WAGON WASHER WAGON WASHER [facility]; Protocol Stop: 03/19/19 20:02 Last Admin: 03/17/19 18:00 Dose: 10 mg Metronidazole (Flagyl 500mg Premixed Ivpb -) 500 mg in 100 mls @ 100 mls/hr IVPB Q8H-IV [facility] Last Admin: 03/18/19 09:20 Dose: 100 mls/hr Meropenem 1 gm/ Dextrose 100 mls @ 200 mls/hr IVPB Q8H-IV [facility] Last Admin: 03/18/19 09:22 Dose: 200 mls/hr Norepinephrine Bitartrate 8, (000 mcg/ Sodium Chloride) 500 mls @ 18.75 mls/hr IV TITR [facility]; Protocol Last Admin: 03/18/19 02:33 Dose: Not Given Sodium Phosphate 45 mm/ Sodium (Chloride) 515 mls @ 62.5 mls/hr IVPB ONCE ONE Stop: 03/18/19 17:44 Last Admin: 03/18/19 10:33 Dose: 62.5 mls/hr Potassium Chloride (Potassium Chloride 10 Meq Premix Ivpb -) 10 meq in 100 mls @ 100 mls/hr IVPB Q60M [facility] Stop: 03/18/19 13:44 Linezolid (Zyvox 600 Mg Premix Bag (Restricted To Id) -) 600 mg in 300 mls @ 300 mls/hr IVPB Q12H [facility]; Protocol Insulin Aspart (Novolog Vial Sliding Scale -) 1 vial SQ ACHS [facility]; Protocol Last Admin: 03/18/19 10:54 Dose: 2 units Ketorolac Tromethamine (Toradol Injection -) 30 mg IVPUSH Q6H PRN PRN Reason: PAIN LEVEL 6-10 Stop: 03/19/19 14:06 Last Admin: 03/17/19 21:20 Dose: 30 mg Lorazepam (Ativan Injection -) 0.5 mg IM Q6H PRN PRN Reason: ANXIETY Last Admin: 03/17/19 20:00 Dose: 0.5 mg Ondansetron HCl (Zofran Injection) 4 mg IVPUSH Q6H PRN PRN Reason: NAUSEA AND/OR VOMITING Last Admin: 03/14/19 05:07 Dose: 4 mg Vancomycin HCl (Vancomycin Oral Solution) 125 mg PO Q6HPO [facility] Last Admin: 03/18/19 06:55 Dose: Not Given - Objective Vital Signs: Vital Signs Temperature 99.3 F 03/18/19 10:00 Pulse Rate 107 H 03/18/19 10:00 Respiratory Rate 15 03/18/19 10:00 Blood Pressure 115/71 03/18/19 10:00 O2 Sat by Pulse Oximetry (%) 95 03/18/19 08:00 Vital Signs Period Temp Pulse Resp BP Sys/Rapp Pulse Ox Last 24 Hr 98.2 F-102.5 F 101-148 19-36 78-124/50-72 100-100 Intake & Output 03/22/19 03/23/19 03/23/19 23:59 07:59 15:59 Intake Total 982 1560 Output Total 900 1000 Balance 82 560 Weight 148 lb 8 oz Intake: IV 382 684 D10w - 1,000 ml @ 75 mls/ 30 hr IV ASDIR [facility] Rx#: [id number] DIPRIVAN - 1,000,000 mcg 91 237 In 100 ml @ 5 MCG/KG/MIN 2.002 mls/hr IVPB TITR [facility] Rx#:[id number] Levophed - 8,000 Mcg In 143 309 D5w - 492 ml @ 5 MCG/MIN 18.75 mls/hr IV TITR [facility] Rx#:[id number] NOVOLIN R VIAL *For 4 IVPUSH or IV DRIP Only* 100 UNITS In Normal Saline - 99 ml @ 0.1 UNITS/KG/HR 6.61 mls/hr IVPB TITR [facility] Rx#: [id number] Sublimaze Injection - 500 144 108 Mcg In D5w - 90 ml @ 50 MCG/HR 10 mls/hr IVPB TITR [facility] Rx#:[id number] IVPB 600 386 Tube Feeding 240 Tube Irrigant 250 Output: Urine 900 1000 Lott 900 1000 Other: Voiding Method Indwelling Catheter Indwelling Catheter Bowel Movement Yes: flexiseal # Bowel Movements 1 Weight Measurement Method Built in [facility] Constitutional: Yes: No Distress, Calm, Cachectic Eyes: Yes: Conjunctiva Clear, EOM Intact HENT: Yes: Atraumatic, Normocephalic Neck: Yes: Supple, Trachea Midline Cardiovascular: Yes: Regular Rate and Rhythm, S1, S2 Respiratory: Yes: Regular, Mechanically Ventilated, Rales Gastrointestinal: Yes: Normal Bowel Sounds, Soft ...Rectal Exam: Yes: Deferred, Other (rectal appliance) Genitourinary: Yes: Lott Present. No: CVA Tenderness - Left, CVA Tenderness - Right Breast(s): No: Mass, Skin Changes Musculoskeletal: No: Muscle Pain, Muscle Weakness Extremities: No: Cool, Cyanosis Edema: Yes Edema: LUE: 2+, RUE: 2+, LLE: 2+, RLE: 2+ Peripheral Pulses WNL: Yes Peripheral Pulses: Left Radial: 2+, Right Radial: 2+, Left Doralis Pedis: 2+, Right Dorsalis Pedis: 2+, Left Femoral: 2+, Right Femoral: 2+ Wound/Incision: Yes: Clean/Dry, Dressing Dry and Intact, Unapproximated Neurological: Yes: Alert. No: Oriented Psychiatric: Yes: Alert. No: Oriented Labs: CBC, BMP 03/18/19 05:30 03/18/19 05:30 INR, PTT INR 1.09 (0.83-1.09) 03/14/19 19:45 - ....Imaging Chest X-ray: Report Reviewed, Image Reviewed Problem List - Problems (1) Small bowel obstruction Assessment/Plan: 48yo female with MMP including SBO, chronic constipation, Gastroparesis and crohns disease presenting with Abdominal pain. She has several possible explanations for this pain. POD#6 Exp Lap and Segmental resection of small intestinal perforation. Poor saturation and hospital acquired infections ESBL and Cdiff. on BIPAP worsening pulmonary status, may be progressing to ARDS Monitored Setting ICU management clears while off vasopressor support treat Cdiff and ESBL crohns flare management oob will follow This patient is critically ill. Time spent reviewing chart, examining patient, talking with providers and/or family and documentation is 35 minutes. Code(s): K56.609 - UNSP INTESTNL OBST, UNSP TO PARTIAL VERSUS COMPLETE OBST (2) Abdominal pain Code(s): R10.9 - UNSPECIFIED ABDOMINAL PAIN Qualifiers: Abdominal location: generalized Qualified Code(s): R10.84 - Generalized abdominal pain (3) Crohn's disease Code(s): K50.90 - CROHN'S DISEASE, UNSPECIFIED, WITHOUT COMPLICATIONS (4) DKA (diabetic ketoacidoses) Code(s): E13.10 - OTH DIABETES MELLITUS WITH KETOACIDOSIS WITHOUT COMA Qualifiers: Diabetes mellitus type: type 1 Diabetes mellitus complication detail: without coma Qualified Code(s): E10.10 - Type 1 diabetes mellitus with ketoacidosis without coma (5) Nausea & vomiting Code(s): R11.2 - NAUSEA WITH VOMITING, UNSPECIFIED (6) Cerebrovascular accident (CVA) Code(s): I63.9 - CEREBRAL INFARCTION, UNSPECIFIED Qualifiers: CVA mechanism: unspecified Qualified Code(s): I63.9 - Cerebral infarction, unspecified
[2019-03-18] MEDS ORDERED: KCL 10 MEQ IVPB 10 MEQ/100 ML INFUS.BAG IVPB SCH (11:45)
[2019-03-18] MEDS: LINEZOLID 600 MG PREMIX BAG 600 MG/300 ML BAG IVPB SCH (12:23)
--- NOTE | 2019-03-18 13:05 | PN ---
Teaching Attending Note Name of Resident: Mukesh Pastor ATTENDING PHYSICIAN STATEMENT I saw and evaluated the patient. I reviewed the resident's note and discussed the case with the resident. I agree with the resident's findings and plan as documented. SUBJECTIVE: Pt seen and examined in the ICU. Remains on BiPAP, desaturating on ventimask. Less tachypneic. Diuresing well with lasix. OBJECTIVE: Vital Signs Period Temp Pulse Resp BP Sys/Rapp Pulse Ox Last 24 Hr 98.4 F-99.3 F 75-107 12-20 84-118/54-71 93-99 Intake & Output 03/15/19 03/16/19 03/17/19 03/18/19 23:59 23:59 23:59 23:59 Intake Total 900 1751.2 834.8 Output Total 2650 1350 3300 200 Balance -1750 401.2 -2465.2 -200 Weight 73.6 kg 74.752 kg Gen: less tachypneic on BiPAP Heart: RRR Lung: scattered rhonchi Abd: soft, nontender Ext: + edema CBC, BMP 03/18/19 05:30 03/18/19 05:30 Active Medications Enoxaparin Sodium (Lovenox -) 110 mg SQ DAILY [facility] Last Admin: 03/18/19 09:21 Dose: 110 mg Furosemide (Lasix Injection -) 40 mg IVPUSH BID@0600,1400 [facility] Last Admin: 03/18/19 06:55 Dose: 40 mg Hydromorphone HCl (Hydromorphone 10 Mg/50 Ml-Ns) 10 mg FLAKE OR SHRED ROLL OPERATOR FLAKE OR SHRED ROLL OPERATOR [facility]; Protocol Stop: 03/19/19 20:02 Last Admin: 03/17/19 18:00 Dose: 10 mg Metronidazole (Flagyl 500mg Premixed Ivpb -) 500 mg in 100 mls @ 100 mls/hr IVPB Q8H-IV [facility] Last Admin: 03/18/19 09:20 Dose: 100 mls/hr Meropenem 1 gm/ Dextrose 100 mls @ 200 mls/hr IVPB Q8H-IV [facility] Last Admin: 03/18/19 09:22 Dose: 200 mls/hr Norepinephrine Bitartrate 8, (000 mcg/ Sodium Chloride) 500 mls @ 18.75 mls/hr IV TITR [facility]; Protocol Last Admin: 03/18/19 02:33 Dose: Not Given Sodium Phosphate 45 mm/ Sodium (Chloride) 515 mls @ 62.5 mls/hr IVPB ONCE ONE Stop: 03/18/19 17:44 Last Admin: 03/18/19 10:33 Dose: 62.5 mls/hr Linezolid (Zyvox 600 Mg Premix Bag (Restricted To Id) -) 600 mg in 300 mls @ 300 mls/hr IVPB Q12H [facility]; Protocol Last Admin: 03/18/19 12:23 Dose: 300 mls/hr Insulin Aspart (Novolog Vial Sliding Scale -) 1 vial SQ ACHS [facility]; Protocol Last Admin: 03/18/19 10:54 Dose: 2 units Ketorolac Tromethamine (Toradol Injection -) 30 mg IVPUSH Q6H PRN PRN Reason: PAIN LEVEL 6-10 Stop: 03/19/19 14:06 Last Admin: 03/17/19 21:20 Dose: 30 mg Lorazepam (Ativan Injection -) 0.5 mg IM Q6H PRN PRN Reason: ANXIETY Last Admin: 03/17/19 20:00 Dose: 0.5 mg Ondansetron HCl (Zofran Injection) 4 mg IVPUSH Q6H PRN PRN Reason: NAUSEA AND/OR VOMITING Last Admin: 03/14/19 05:07 Dose: 4 mg Vancomycin HCl (Vancomycin Oral Solution) 125 mg PO Q6HPO [facility] Last Admin: 03/18/19 12:25 Dose: Not Given ASSESSMENT AND PLAN: Acute Hypoxic Respiratory Failure Perforated Small Bowel s/p ex-lap/RAYSHAWN/segmental SB resection Crohn's Disease Peritonitis +C diff Colitis Septic Shock Lactic Acidosis Volume Overload h/o PE HTN DM Hyperlipidemia h/o CVA - continue antibiotics - lasix BID today - monitor urine output, creatinine - keep net negative - monitor and replete lytes - titrate pressors to maintain MAP >65 - BiPAP to assist in work of breathing - pain control - incentive spirometry - continue anticoagulation - continue ICU monitoring critical care time spent in revieiwing chart, evaluating patient and formulating plan 35 min
[2019-03-18 13:24] LABS: ANISOCYTOSIS 2+; MACROCYTOSIS 0; PLATELET ESTIMATE DECREASED; TARGET CELLS 1+; TEAR DROP CELLS 1+; TOXIC GRANULATION 2+
[2019-03-18] MEDS ORDERED: FUROSEMIDE 40 MG/4 ML INJECTABLE VIAL IVPUSH SCH (14:00)
--- NOTE | 2019-03-18 16:06 | PN ---
Physical Exam: SUBJECTIVE: OBJECTIVE: Vital Signs Period Temp Pulse Resp BP Sys/Rapp Pulse Ox Last 24 Hr 99 F-99.3 F 75-107 12-20 84-118/54-71 93-99 Laboratory Results - last 24 hr 03/17/19 03/17/19 03/18/19 17:43 21:43 05:30 WBC RBC Hgb Hct MCV MCH MCHC RDW Plt Count MPV Absolute Neuts (auto) Neutrophils % Neutrophils % (Manual) Band Neutrophils % Lymphocytes % Lymphocytes % (Manual) Monocytes % Monocytes % (Manual) Eosinophils % Eosinophils % (Manual) Basophils % Basophils % (Manual) Myelocytes % (Man) Promyelocytes % (Man) Blast Cells % (Manual) Nucleated RBC % Metamyelocytes Hypochromia Toxic Granulation Platelet Estimate Platelet Comment Polychromasia Poikilocytosis Anisocytosis Microcytosis Macrocytosis Spherocytes Target Cells Tear Drop Cells [place] Cells PTT (Actin FS) 27.1 Sodium Potassium Chloride Carbon Dioxide Anion Gap BUN Creatinine Est GFR (CKD-EPI)AfAm Est GFR (CKD-EPI)NonAf POC Glucometer 168 89 Random Glucose Calcium Phosphorus Magnesium Total Bilirubin AST ALT Alkaline Phosphatase Total Protein Albumin 03/18/19 03/18/19 03/18/19 05:30 05:30 05:42 WBC 7.8 RBC 3.66 Hgb 9.0 L Hct 27.7 L MCV 75.6 L MCH 24.5 L MCHC 32.4 RDW 24.3 H Plt Count 114 L D MPV 9.5 Absolute Neuts (auto) 6.2 Neutrophils % 79.9 Neutrophils % (Manual) 76.0 Band Neutrophils % 5.0 Lymphocytes % 16.8 D Lymphocytes % (Manual) 12.0 D Monocytes % 1.8 L Monocytes % (Manual) 0 L Eosinophils % 1.2 D Eosinophils % (Manual) 2.0 D Basophils % 0.3 Basophils % (Manual) 0.0 Myelocytes % (Man) 0 Promyelocytes % (Man) 0 Blast Cells % (Manual) 0 Nucleated RBC % 0 Metamyelocytes 1 D Hypochromia 1+ Toxic Granulation 2+ Platelet Estimate Decreased Platelet Comment Present Polychromasia 1+ Poikilocytosis 1+ Anisocytosis 2+ Microcytosis 1+ Macrocytosis 0 Spherocytes 1+ Target Cells 1+ Tear Drop Cells 1+ [place] Cells 1+ PTT (Actin FS) Sodium 143 Potassium 3.1 L Chloride 107 Carbon Dioxide 24 Anion Gap 11 BUN 9.0 Creatinine 0.4 L Est GFR (CKD-EPI)AfAm 141.75 Est GFR (CKD-EPI)NonAf 122.30 POC Glucometer 201 Random Glucose 218 H Calcium 6.5 L* Phosphorus 1.6 L Magnesium 1.5 L Total Bilirubin 0.5 AST 28 ALT 8 L Alkaline Phosphatase 276 H Total Protein 3.9 L Albumin 1.2 L 03/18/19 10:53 WBC RBC Hgb Hct MCV MCH MCHC RDW Plt Count MPV Absolute Neuts (auto) Neutrophils % Neutrophils % (Manual) Band Neutrophils % Lymphocytes % Lymphocytes % (Manual) Monocytes % Monocytes % (Manual) Eosinophils % Eosinophils % (Manual) Basophils % Basophils % (Manual) Myelocytes % (Man) Promyelocytes % (Man) Blast Cells % (Manual) Nucleated RBC % Metamyelocytes Hypochromia Toxic Granulation Platelet Estimate Platelet Comment Polychromasia Poikilocytosis Anisocytosis Microcytosis Macrocytosis Spherocytes Target Cells Tear Drop Cells [place] Cells PTT (Actin FS) Sodium Potassium Chloride Carbon Dioxide Anion Gap BUN Creatinine Est GFR (CKD-EPI)AfAm Est GFR (CKD-EPI)NonAf POC Glucometer 169 Random Glucose Calcium Phosphorus Magnesium Total Bilirubin AST ALT Alkaline Phosphatase Total Protein Albumin Active Medications Generic Name Dose Route Start Last Admin Trade Name Myronq PRN Reason Stop Dose Admin Enoxaparin Sodium 110 mg 03/17/19 13:00 03/18/19 09:21 Lovenox - SQ 110 mg DAILY [facility] Administration Furosemide 40 mg 03/17/19 12:15 03/18/19 14:40 Lasix Injection - IVPUSH 40 mg BID@0600,1400 [facility] Administration Hydromorphone HCl 10 mg 03/14/19 14:01 03/17/19 18:00 Hydromorphone 10 Mg/50 Ml-Ns [employer] 03/19/19 20:02 10 mg [employer] [facility] Administration Protocol Metronidazole 500 mg in 100 mls @ 100 mls/hr 03/15/19 13:00 03/18/19 09:20 Flagyl 500mg Premixed Ivpb - IVPB 100 mls/hr Q8H-IV [facility] Administration Meropenem 1 gm/ Dextrose 100 mls @ 200 mls/hr 03/15/19 13:15 03/18/19 09:22 IVPB 200 mls/hr Q8H-IV [facility] Administration Sodium Phosphate 45 mm/ Sodium 515 mls @ 62.5 mls/hr 03/18/19 09:30 03/18/19 10:33 Chloride IVPB 03/18/19 17:44 62.5 mls/hr ONCE ONE Administration Linezolid 600 mg in 300 mls @ 300 mls/hr 03/18/19 11:45 03/18/19 12:23 Zyvox 600 Mg Premix Bag (Restricted To Id) - IVPB 300 mls/hr Q12H [facility] Administration Protocol Insulin Aspart 1 vial 03/12/19 16:30 03/18/19 10:54 Novolog Vial Sliding Scale - SQ 2 units ACHS [facility] Administration Protocol Ketorolac Tromethamine 30 mg 03/14/19 14:07 03/17/19 21:20 Toradol Injection - IVPUSH 03/19/19 14:06 30 mg Q6H PRN Administration PAIN LEVEL 6-10 Lorazepam 0.5 mg 03/14/19 13:10 03/17/19 20:00 Ativan Injection - IM 0.5 mg Q6H PRN Administration ANXIETY Ondansetron HCl 4 mg 03/11/19 20:31 03/14/19 05:07 Zofran Injection IVPUSH 4 mg Q6H PRN Administration NAUSEA AND/OR VOMITING Vancomycin HCl 125 mg 03/15/19 18:00 03/18/19 12:25 Vancomycin Oral Solution PO Not Given Q6HPO [facility] ASSESSMENT/PLAN: SUBJECTIVE - Patient seen and examined no acute overnight events patient complaining of pain everywhere - reminded patient she has a [employer] pump patient endorsed subjective warmth but afebrile overnight EXAM - GEN: Mild distress. AAOx3 HEENT: NC/AT, EOMI. Normal voice. Supple neck w/ FROM CV: S1/S2, RRR, no m/r/g LUNG: On BiPaP. CTAB, no wheezes, crackles, rales, rhonchi GI: +BS, soft, nt. Midline scar covered w/ clean dressing SKIN: warm, dry, normal turgor EXT: 1+ pitting edema in all 4 extremities w/ edema of LUE > RUE. A/P - 48F PMH IDDM, PE on xarelto, frequent DKA, HTN, HLD, CVA w/ left sided weakness , recent hospitalization at [facility] September 2018 admitted to ICU for SBO. Developed pneumoperitoneum s/p ex-lap. POD 6 Neuro - Pain ctrl dilaudid [employer] - Tylenol for pain/fever ctrl CV - s/p sinus tachy - No longer hypotensive or tachycardic - Maintain MAP >65 - Off pressors Respiratory - Patient briefly off BiPaP today, placed on venti-mask where she quickly removed the mask. Reinforced the important of the mask but patient saturation in the low 80s on venti-mask. Placed back on BiPap - desats to the 70s on RA - Will attempt nonrebreather - Lasix IV 40 BID - monitor resp status - IS - CXR 03/18/19 appears to be improved from prior day GI - Crohn's flair likely, pneumoperitoneum s/p ex-lap - lysis of adhesions, segmental resection of small intestinal perforation with side-side stapled anastomosis, abdominal washout, resection of portion of omentum - advanced diet to clears, removed ng tube, not tolerating PO liquids or meds. - Will continue zosyn and add on meropenem and vanc/flagyl for ESBL and CDiff respectively. - continue steroids IV for crohn's flare - GI recs appreciated ID - ID recs appreciated - d/c zosyn, starting meropenem 1g TID due to ESBL and klebsiella pna in wound culture. - Cx + LF neg bacilli - UCx + VRE - CDiff Ag and toxin pos - downtrending WBC 8 > 13.8 > 16.2 > 7.8 - c/w flagyl - c/w meropenam - c/w PO vanc FEN - d/c fluids, lasix given - NPO, NGT decompression - Lytes in AM, replete PRN - Phos repleted - Monitor I/Os - Monitor UrO, Cr PPx: LVX Nurse expressed concern regarding [employer] dose Discussed these concerns w/ Anesthesiology - patient is opiate tolerant and requires a higher dose for analgesia; There are adequate safety parameters set for [employer]. Anesthesiology rounds daily on patients w/ [employer]. Patient is not over-sedated. Visit type - Emergency Visit Emergency Visit: Yes ED Registration Date: 03/09/19 Care time: The patient presented to the Emergency Department on the above date and was hospitalized for further evaluation of their emergent condition. - New Patient This patient is new to me today: No - Critical Care Critical Care patient: Yes Total Critical Care Time (in minutes): 35 Critical Care Statement: The care of this patient involved high complexity decision making to prevent further life threatening deterioration of the patient 's condition and/or to evaluate & treat vital organ system(s) failure or risk of failure.
[2019-03-18] MEDS: HYDROmorphone *PCA* 10MG/50ML DISP.SYRIN PCA SCH (16:57)
--- NOTE | 2019-03-18 18:05 | PN.GI ---
GI Progress Note Subjective: No acute events Patient more awake, says she wants to go home and is thirsty + abdominal pain 250cc stool output noted today - Objective Vital Signs: Vital Signs Temperature 99.2 F 03/18/19 14:55 Pulse Rate 76 03/18/19 16:57 Respiratory Rate 16 03/18/19 16:57 Blood Pressure 92/66 03/18/19 16:57 O2 Sat by Pulse Oximetry (%) 104 H 03/18/19 16:57 Constitutional: Mild Distress Eyes: No: Sclera Icterus Cardiovascular: Yes: Tachycardia Respiratory: Yes: Diminished (at bases bilaterally) Gastrointestinal Inspection: Yes: Other (midline dressing in place) ...Auscultate: Yes: Hypoactive Bowel Sounds (Improved from previous) ...Palpate: Yes: Soft, Tenderness (TTP diffusely) ...Percussion: No: Tympanitic Edema: Yes Edema: LUE: 2+, RUE: 2+, LLE: 1+, RLE: 1+ Neurological: Yes: Alert Labs: CBC, BMP 03/18/19 05:30 INR, PTT INR 1.09 (0.83-1.09) 03/14/19 19:45 Hepatic Panel Total Bilirubin 0.5 mg/dL (0.2-1) 03/18/19 05:30 AST 28 U/L (15-37) 03/18/19 05:30 ALT 8 U/L (13-61) L 03/18/19 05:30 Alkaline Phosphatase 276 U/L (45-117) H 03/18/19 05:30 Albumin 1.2 g/dl (3.4-5.0) L 03/18/19 05:30 Problem List - Problems (1) Small bowel perforation Assessment/Plan: Post op care per surgery Obtain information from [facility] regarding work-up leading up to Crohn's diagnosis Supportive measures per critical care team Code(s): K63.1 - PERFORATION OF INTESTINE (NONTRAUMATIC) (2) Clostridium difficile diarrhea Assessment/Plan: Vancocin 125mg PO q 6 hours Flagyl 500g IVPB Q8 Hrs Avoid PPI ID following Code(s): A04.72 - ENTEROCOLITIS D/T CLOSTRIDIUM DIFFICILE, NOT SPCF RECUR
[2019-03-18 18:30] LABS: BLOOD UREA NITROGEN 6.8 mg/dL (7-18); CREATININE 0.3 mg/dL (0.55-1.3); PHOSPHOROUS 3.5 mg/dL (2.5-4.9)
[2019-03-18 18:34] LABS: CALCIUM 6.7 mg/dL (8.5-10.1)
[2019-03-18] MEDS: LORazepam 2 MG/ML SDV VIAL IM PRN (23:00)
[2019-03-19] MEDS: LINEZOLID 600 MG PREMIX BAG 600 MG/300 ML BAG IVPB SCH ×2 (00:23→13:10)
[2019-03-19] MEDS: VANCOMYCIN 250 MG/5 ML ORAL SOLUTION PO SCH ×4 (00:23→17:34)
[2019-03-19] MEDS ORDERED: MEROPENEM 1 GM VIAL (RESTRICTED TO ID) IVPB ONE ×3 (00:39→17:05)
[2019-03-19] MEDS ORDERED: DEXTROSE 5%-WATER 100 ML IVPB ONE ×3 (00:39→17:05)
[2019-03-19] MEDS: MEROPENEM 1 GM in DEXTROSE 5%-WATER 100 ML IVPB SCH ×3 (04:30→17:13)
[2019-03-19] MEDS ORDERED: INSULIN (NOVOLOG) ASPART 100 UNITS/ML 10ML VIAL ONE (04:45)
[2019-03-19] MEDS: KETOROLAC TROMETHAMINE 30 MG/1 ML VIAL IVPUSH PRN (05:35)
[2019-03-19] MEDS: FUROSEMIDE 40 MG/4 ML INJECTABLE VIAL IVPUSH SCH ×2 (05:35→13:11)
[2019-03-19] MEDS: INSULIN SLIDING SCALE (NOVOLOG) 1 VIAL SQ SCH ×4 (06:00→22:14)
[2019-03-19] MEDS ORDERED: RAPID SEQUENCE INTUBATION KIT NR ONE (06:17)
[2019-03-19] MEDS ORDERED: dilTIAZem HCL 125 MG/25 ML - 25 ML VIAL ONE (06:25)
[2019-03-19 06:26] LABS: BASO % 0.7 % (0-2.0); EOS % 0.8 % (0-4.5); HEMATOCRIT 25.8 % (32.4-45.2); HEMOGLOBIN 8.3 GM/dL (10.7-15.3); LYMPH % 9.3 % (8-40); MCH 24.7 pg (25.7-33.7); MCHC 32.3 g/dl (32.0-36.0); MEAN CELL VOLUME 76.5 fl (80-96); MEAN PLT VOLUME 10.2 fl (7.5-11.1); MONO % 1.8 % (3.8-10.2); NEUT % 87.4 % (42.8-82.8); PLATELET COUNT 94 K/MM3 (134-434); RBC 3.37 M/mm3 (3.60-5.2)
--- NOTE | 2019-03-19 06:26 | PN ---
Progress Note (short form) - Note Progress Note: Called to ICU emergently for emergent intubation. Pt had apparently removed her CPAP machine, and began to desaturate and become hypotensive. One round of epinephrine had been given and CPR started with ROSC. At arrival to bedside, pt had a pulse but was being manually ventilated by PT. Decision was made to intubate; rocuronium 50mg given, MAC3 blade --> mallampati 1 --> ETT 7.0 placed and CO2 return was verified. Taped at 20cm at teeth. VSS, placed on vent.
[2019-03-19] MEDS ORDERED: dilTIAZem HCL 25 MG/5 ML - 5 ML VIAL ONE (06:27)
--- NOTE | 2019-03-19 06:28 | RAPID ---
Physical Examination Vital Signs: Vital Signs Temperature 98 F 03/18/19 17:00 Pulse Rate 100 H 03/19/19 01:00 Respiratory Rate 13 03/19/19 01:00 Blood Pressure 89/64 L 03/19/19 01:00 O2 Sat by Pulse Oximetry (%) 94 L 03/19/19 03:05 Rapid Response - Rapid Response Assessment: Rapid response called Patient unresponsive without pulses Patient had removed her BiPap, known to desat immediately on room air. ACLS started, ROSC achieved after 1 round of CPR. 1 round of Epi was given. Code 99 and Anesthesiology called. patient intubated - f/u labs, cxr, ekg - cardizem 10 ivpush // see code sheet for further detail
[2019-03-19 06:39] LABS: HEMATOCRIT 30.8 % (32.4-45.2); HEMOGLOBIN 9.1 GM/dL (10.7-15.3); MCH 24.1 pg (25.7-33.7); MCHC 29.6 g/dl (32.0-36.0); MEAN CELL VOLUME 81.4 fl (80-96); MEAN PLT VOLUME 9.8 fl (7.5-11.1); PLATELET COUNT 87 K/MM3 (134-434); RBC 3.78 M/mm3 (3.60-5.2); RDW 24.5 % (11.6-15.6); WHITE BLOOD COUNT 8.9 K/mm3 (4.0-10.0)
[2019-03-19] MEDS ORDERED: dilTIAZem HCL 50 MG/10 ML - 10 ML VIAL IVPUSH ONE (06:45)
[2019-03-19 06:54] LABS: ARTERIAL BLD GAS O2 SATURATION 78.5 % (95-98); ARTERIAL BLOOD GAS BASE EXCESS -15.1 meq/l (-2-2); ARTERIAL BLOOD GAS PCO2 58.1 mmHg (35-45); ARTERIAL BLOOD GAS PO2 67.5 mmHg (80-100)
[2019-03-19 06:56] LABS: ALLENS TEST POSITIVE
[2019-03-19 07:00] LABS: ARTERIAL BLOOD GAS pH 7.04 (7.35-7.45)
[2019-03-19] MEDS ORDERED: FENTANYL INJECTION 500 MCG in DEXTROSE 5%-WATER - 90 ML IVPB SCH (07:00)
[2019-03-19] MEDS ORDERED: POTASSIUM CHLORIDE 20 MEQ PREMIX IVPB 100 ML IVPB ONE ×3 (07:37→17:02)
[2019-03-19 07:38] LABS: ALBUMIN 1.2 g/dl (3.4-5.0); BILIRUBIN,TOTAL 0.4 mg/dL (0.2-1); BLOOD UREA NITROGEN 6.8 mg/dL (7-18); CREATININE 0.4 mg/dL (0.55-1.3); MAGNESIUM 1.7 mg/dL (1.8-2.4); PHOSPHOROUS 1.7 mg/dL (2.5-4.9); TOT PROT 4.1 g/dl (6.4-8.2)
[2019-03-19 07:40] LABS: ARTERIAL BLD GAS O2 SATURATION 96.9 % (95-98); ARTERIAL BLOOD GAS PCO2 57.3 mmHg (35-45); ARTERIAL BLOOD GAS PO2 131 mmHg (80-100)
[2019-03-19 07:41] LABS: ALLENS TEST POSITIVE; ARTERIAL BLOOD GAS pH 7.12 (7.35-7.45)
[2019-03-19 07:41] LABS: BLOOD UREA NITROGEN 7.8 mg/dL (7-18); CREATININE 0.7 mg/dL (0.55-1.3); MAGNESIUM 2.3 mg/dL (1.8-2.4)
[2019-03-19 07:44] LABS: POTASSIUM 2.7 mmol/L (3.5-5.1)
[2019-03-19 07:46] LABS: CALCIUM 6.5 mg/dL (8.5-10.1)
[2019-03-19 07:50] LABS: POTASSIUM 2.9 mmol/L (3.5-5.1)
[2019-03-19 09:18] LABS: ARTERIAL BLD GAS O2 SATURATION 93.7 % (95-98); ARTERIAL BLOOD GAS BASE EXCESS -5.2 meq/l (-2-2); ARTERIAL BLOOD GAS PCO2 54.7 mmHg (35-45); ARTERIAL BLOOD GAS PO2 86.4 mmHg (80-100); ARTERIAL BLOOD GAS pH 7.23 (7.35-7.45)
[2019-03-19 09:23] LABS: ALLENS TEST POSITIVE
--- NOTE | 2019-03-19 09:36 | PN ---
Physical Exam: SUBJECTIVE: Patient seen and examined in the icu. overnight events noted. I called patient's fiancee and father and updated them on overnight events. advised them to come to the hospital. OBJECTIVE: patient coded overnight and ACLS protocol initiated she had taken off her bipap mask and went into respiratory distress per ICU report. now intubated. anion gap 24, sodium bicarb 16, glucose 341 Patient is a 48 year-old female with a past medical history of diabetes type 1 with frequent admissions for DKA, HTN, HLD, CVA with left-sided weakness. Recent hospitalization at [facility] September 2018 for SBO. Patient also states she had open heart surgery at [facility] at or about the same time as surgery for the SBO . Patient developed sharp abdominal pain and in the ED had NGT placed with > 1000cc output greenish/brown fluid. She was taken emergently to the OR for a perforated viscus and is now POD #7with Dr. Krishnamurthy. Vital Signs Period Temp Pulse Resp BP Sys/Rapp Pulse Ox Last 24 Hr 98 F-99.3 F 75-107 12-18 89-115/61-71 62-104 GENERAL: sedated, intubated - agonal breathing HEAD: Normal with no signs of trauma. EYES: PERRL, extraocular movements intact, sclera anicteric, conjunctiva clear. No ptosis. ENT: oropharynx clear without exudates, moist mucous membranes. NECK: Trachea midline, full range of motion, supple. LUNGS: diminished HEART: Regular rate and rhythm ABDOMEN: abdominal dressing s/p repair of perforated viscus EXTREMITIES: generalized edema NEUROLOGICAL: intubated/sedated. Laboratory Results - last 24 hr 03/18/19 03/18/19 03/18/19 05:30 10:53 17:00 WBC RBC Hgb Hct MCV MCH MCHC RDW Plt Count MPV Absolute Neuts (auto) Neutrophils % Neutrophils % (Manual) 76.0 Band Neutrophils % 5.0 Lymphocytes % Lymphocytes % (Manual) 12.0 D Monocytes % Monocytes % (Manual) 0 L Eosinophils % Eosinophils % (Manual) 2.0 D Basophils % Basophils % (Manual) 0.0 Myelocytes % (Man) 0 Promyelocytes % (Man) 0 Blast Cells % (Manual) 0 Nucleated RBC % Metamyelocytes 1 D Hypochromia 1+ Toxic Granulation 2+ Platelet Estimate Decreased Platelet Comment Present Polychromasia 1+ Poikilocytosis 1+ Anisocytosis 2+ Microcytosis 1+ Macrocytosis 0 Spherocytes 1+ Target Cells 1+ Tear Drop Cells 1+ [place] Cells 1+ PTT (Actin FS) Anticoagulation Therapy Puncture Site ABG pH ABG pCO2 at Pt Temp ABG pO2 at Pt Temp ABG HCO3 ABG O2 Sat (Measured) ABG O2 Content ABG Base Excess Atul Test O2 Delivery Device Oxygen Flow Rate Vent Mode Vent Rate Mechanical Rate PEEP Pressure Support Vent Sodium 145 Potassium 3.0 L Chloride 107 Carbon Dioxide 19 L Anion Gap 18 H BUN 6.8 L Creatinine 0.3 L Est GFR (CKD-EPI)AfAm 155.82 Est GFR (CKD-EPI)NonAf 134.44 POC Glucometer 169 Random Glucose 303 H Lactic Acid Calcium 6.7 L* Phosphorus 3.5 Magnesium 2.0 Total Bilirubin AST ALT Alkaline Phosphatase Creatine Kinase Troponin I Total Protein Albumin Prealbumin 03/18/19 03/18/19 03/19/19 17:14 23:04 05:00 WBC RBC Hgb Hct MCV MCH MCHC RDW Plt Count MPV Absolute Neuts (auto) Neutrophils % Neutrophils % (Manual) Band Neutrophils % Lymphocytes % Lymphocytes % (Manual) Monocytes % Monocytes % (Manual) Eosinophils % Eosinophils % (Manual) Basophils % Basophils % (Manual) Myelocytes % (Man) Promyelocytes % (Man) Blast Cells % (Manual) Nucleated RBC % Metamyelocytes Hypochromia Toxic Granulation Platelet Estimate Platelet Comment Polychromasia Poikilocytosis Anisocytosis Microcytosis Macrocytosis Spherocytes Target Cells Tear Drop Cells Jose Antonio Cells PTT (Actin FS) 30.7 Anticoagulation Therapy Puncture Site ABG pH ABG pCO2 at Pt Temp ABG pO2 at Pt Temp ABG HCO3 ABG O2 Sat (Measured) ABG O2 Content ABG Base Excess Atul Test O2 Delivery Device Oxygen Flow Rate Vent Mode Vent Rate Mechanical Rate PEEP Pressure Support Vent Sodium Potassium Chloride Carbon Dioxide Anion Gap BUN Creatinine Est GFR (CKD-EPI)AfAm Est GFR (CKD-EPI)NonAf POC Glucometer 299 185 Random Glucose Lactic Acid Calcium Phosphorus Magnesium Total Bilirubin AST ALT Alkaline Phosphatase Creatine Kinase Troponin I Total Protein Albumin Prealbumin 03/19/19 03/19/19 03/19/19 05:00 05:00 05:00 WBC 8.0 RBC 3.37 L Hgb 8.3 L Hct 25.8 L MCV 76.5 L MCH 24.7 L MCHC 32.3 RDW 24.0 H Plt Count 94 L MPV 10.2 Absolute Neuts (auto) 6.9 Neutrophils % 87.4 H Neutrophils % (Manual) Band Neutrophils % Lymphocytes % 9.3 D Lymphocytes % (Manual) Monocytes % 1.8 L Monocytes % (Manual) Eosinophils % 0.8 Eosinophils % (Manual) Basophils % 0.7 Basophils % (Manual) Myelocytes % (Man) Promyelocytes % (Man) Blast Cells % (Manual) Nucleated RBC % 0 Metamyelocytes Hypochromia Toxic Granulation Platelet Estimate Platelet Comment Polychromasia Poikilocytosis Anisocytosis Microcytosis Macrocytosis Spherocytes Target Cells Tear Drop Cells Jose Antonio Cells PTT (Actin FS) Anticoagulation Therapy Puncture Site ABG pH ABG pCO2 at Pt Temp ABG pO2 at Pt Temp ABG HCO3 ABG O2 Sat (Measured) ABG O2 Content ABG Base Excess Atul Test O2 Delivery Device Oxygen Flow Rate Vent Mode Vent Rate Mechanical Rate PEEP Pressure Support Vent Sodium 144 Potassium 2.7 L* Chloride 106 Carbon Dioxide 19 L Anion Gap 18 H BUN 6.8 L Creatinine 0.4 L Est GFR (CKD-EPI)AfAm 141.75 Est GFR (CKD-EPI)NonAf 122.30 POC Glucometer Random Glucose 335 H Lactic Acid Calcium 6.5 L* Phosphorus 1.7 L Magnesium 1.7 L Total Bilirubin 0.4 AST 34 ALT 10 L Alkaline Phosphatase 363 H Creatine Kinase Troponin I Total Protein 4.1 L Albumin 1.2 L Prealbumin 7.0 L 03/19/19 03/19/19 03/19/19 05:26 06:20 06:20 WBC 8.9 RBC 3.78 Hgb 9.1 L Hct 30.8 L D MCV 81.4 MCH 24.1 L MCHC 29.6 L RDW 24.5 H Plt Count 87 L MPV 9.8 Absolute Neuts (auto) Neutrophils % Neutrophils % (Manual) Band Neutrophils % Lymphocytes % Lymphocytes % (Manual) Monocytes % Monocytes % (Manual) Eosinophils % Eosinophils % (Manual) Basophils % Basophils % (Manual) Myelocytes % (Man) Promyelocytes % (Man) Blast Cells % (Manual) Nucleated RBC % Metamyelocytes Hypochromia Toxic Granulation Platelet Estimate Platelet Comment Polychromasia Poikilocytosis Anisocytosis Microcytosis Macrocytosis Spherocytes Target Cells Tear Drop Cells Jose Antonio Cells PTT (Actin FS) Anticoagulation Therapy Puncture Site ABG pH ABG pCO2 at Pt Temp ABG pO2 at Pt Temp ABG HCO3 ABG O2 Sat (Measured) ABG O2 Content ABG Base Excess Atul Test O2 Delivery Device Oxygen Flow Rate Vent Mode Vent Rate Mechanical Rate PEEP Pressure Support Vent Sodium 146 H Potassium 2.9 L* Chloride 106 Carbon Dioxide 16 L Anion Gap 24 H BUN 7.8 Creatinine 0.7 Est GFR (CKD-EPI)AfAm 117.91 Est GFR (CKD-EPI)NonAf 101.74 POC Glucometer 332 Random Glucose 371 H Lactic Acid Calcium 7.0 L Phosphorus Magnesium 2.3 Total Bilirubin AST ALT Alkaline Phosphatase Creatine Kinase Troponin I Total Protein Albumin Prealbumin 03/19/19 03/19/19 03/19/19 06:20 06:20 06:22 WBC RBC Hgb Hct MCV MCH MCHC RDW Plt Count MPV Absolute Neuts (auto) Neutrophils % Neutrophils % (Manual) Band Neutrophils % Lymphocytes % Lymphocytes % (Manual) Monocytes % Monocytes % (Manual) Eosinophils % Eosinophils % (Manual) Basophils % Basophils % (Manual) Myelocytes % (Man) Promyelocytes % (Man) Blast Cells % (Manual) Nucleated RBC % Metamyelocytes Hypochromia Toxic Granulation Platelet Estimate Platelet Comment Polychromasia Poikilocytosis Anisocytosis Microcytosis Macrocytosis Spherocytes Target Cells Tear Drop Cells Jose Antonio Cells PTT (Actin FS) Anticoagulation Therapy Puncture Site ABG pH ABG pCO2 at Pt Temp ABG pO2 at Pt Temp ABG HCO3 ABG O2 Sat (Measured) ABG O2 Content ABG Base Excess Atul Test O2 Delivery Device Oxygen Flow Rate Vent Mode Vent Rate Mechanical Rate PEEP Pressure Support Vent Sodium Potassium Chloride Carbon Dioxide Anion Gap BUN Creatinine Est GFR (CKD-EPI)AfAm Est GFR (CKD-EPI)NonAf POC Glucometer 312 Random Glucose Lactic Acid 8.1 H* Calcium Phosphorus Magnesium Total Bilirubin AST ALT Alkaline Phosphatase Creatine Kinase 71 Troponin I 0.53 H Total Protein Albumin Prealbumin 03/19/19 03/19/19 03/19/19 06:40 06:40 09:11 WBC RBC Hgb Hct MCV MCH MCHC RDW Plt Count MPV Absolute Neuts (auto) Neutrophils % Neutrophils % (Manual) Band Neutrophils % Lymphocytes % Lymphocytes % (Manual) Monocytes % Monocytes % (Manual) Eosinophils % Eosinophils % (Manual) Basophils % Basophils % (Manual) Myelocytes % (Man) Promyelocytes % (Man) Blast Cells % (Manual) Nucleated RBC % Metamyelocytes Hypochromia Toxic Granulation Platelet Estimate Platelet Comment Polychromasia Poikilocytosis Anisocytosis Microcytosis Macrocytosis Spherocytes Target Cells Tear Drop Cells Jose Antonio Cells PTT (Actin FS) Anticoagulation Therapy No Result Required. No Result Required. Puncture Site Right radial Right radial Right radial ABG pH 7.12 L* 7.04 L* 7.23 L ABG pCO2 at Pt Temp 57.3 H 58.1 H 54.7 H ABG pO2 at Pt Temp 131 H 67.5 L 86.4 ABG HCO3 17.8 L 15.0 L 21.9 L ABG O2 Sat (Measured) 96.9 78.5 L 93.7 L ABG O2 Content 12.4 10.7 11.6 ABG Base Excess -11.0 L -15.1 L -5.2 L Atul Test Positive Positive Positive O2 Delivery Device No Result Required. No Result Required. Oxygen Flow Rate 100 100% 100 Vent Mode Vol/ac A/c Vol/ac Vent Rate 14 14 14 Mechanical Rate No Result Required. No Result Required. PEEP 5.0 5.0 5.0 Pressure Support Vent 400 400 400 Sodium Potassium Chloride Carbon Dioxide Anion Gap BUN Creatinine Est GFR (CKD-EPI)AfAm Est GFR (CKD-EPI)NonAf POC Glucometer Random Glucose Lactic Acid Calcium Phosphorus Magnesium Total Bilirubin AST ALT Alkaline Phosphatase Creatine Kinase Troponin I Total Protein Albumin Prealbumin Active Medications Generic Name Dose Route Start Last Admin Trade Name Freq PRN Reason Stop Dose Admin Amino Acids 30 ml 03/19/19 08:00 Prosource No Carb Liquid Pkt PO TIDCM [facility] Enoxaparin Sodium 110 mg 03/17/19 13:00 03/18/19 09:21 Lovenox - SQ 110 mg DAILY [facility] Administration Furosemide 40 mg 03/17/19 12:15 03/19/19 05:35 Lasix Injection - IVPUSH 40 mg BID@0600,1400 [facility] Administration Hydromorphone HCl 10 mg 03/14/19 14:01 03/18/19 16:57 Hydromorphone 10 Mg/50 Ml-Ns [employer] 03/19/19 20:02 10 mg [employer] [facility] Administration Protocol Metronidazole 500 mg in 100 mls @ 100 mls/hr 03/15/19 13:00 03/19/19 01:20 Flagyl 500mg Premixed Ivpb - IVPB 100 mls/hr Q8H-IV [facility] Administration Meropenem 1 gm/ Dextrose 100 mls @ 200 mls/hr 03/15/19 13:15 03/19/19 04:30 IVPB 200 mls/hr Q8H-IV [facility] Administration Linezolid 600 mg in 300 mls @ 300 mls/hr 03/18/19 11:45 03/19/19 00:23 Zyvox 600 Mg Premix Bag (Restricted To Id) - IVPB 300 mls/hr Q12H [facility] Administration Protocol Fentanyl 500 mcg/ Dextrose 100 mls @ 10 mls/hr 03/19/19 07:00 IVPB TITR [facility] Protocol 50 MCG/HR Potassium Chloride 10 meq in 100 mls @ 100 mls/hr 03/19/19 08:45 Potassium Chloride 10 Meq Premix Ivpb - IVPB 03/19/19 10:44 Q60M [facility] Insulin Aspart 1 vial 03/12/19 16:30 03/19/19 06:00 Novolog Vial Sliding Scale - SQ 8 units ACHS [facility] Administration Protocol Ketorolac Tromethamine 30 mg 03/14/19 14:07 03/19/19 05:35 Toradol Injection - IVPUSH 03/19/19 14:06 30 mg Q6H PRN Administration PAIN LEVEL 6-10 Lorazepam 0.5 mg 03/14/19 13:10 03/18/19 23:00 Ativan Injection - IM 0.5 mg Q6H PRN Administration ANXIETY Ondansetron HCl 4 mg 03/11/19 20:31 03/14/19 05:07 Zofran Injection IVPUSH 4 mg Q6H PRN Administration NAUSEA AND/OR VOMITING Vancomycin HCl 125 mg 03/15/19 18:00 03/19/19 07:25 Vancomycin Oral Solution PO Not Given Q6HPO [facility] ASSESSMENT/PLAN: Problem List - Problems (1) Perforated abdominal viscus Assessment/Plan: s/p Ex-lap/RAYSHAWN/partial SB and omental resection with anastomosis/washout on 03/12 on meropenem and flagyl per ID. Code(s): HWJ4909 - (2) Abdominal pain Assessment/Plan: Patient is/p ex-lap/RAYSHAWN/partial SB and omental resection with anastomosis/ washout appreciate surgical and ID consultation on meropenem and flagyl NPO, advance diet per surgery wound care as per surgery Code(s): R10.9 - UNSPECIFIED ABDOMINAL PAIN Qualifiers: Abdominal location: generalized Qualified Code(s): R10.84 - Generalized abdominal pain (3) C. difficile diarrhea Assessment/Plan: + for c diff toxin and antigen ID following monitor output has rectal tube in place Code(s): A04.72 - ENTEROCOLITIS D/T CLOSTRIDIUM DIFFICILE, NOT SPCF RECUR (4) Diabetes Assessment/Plan: monitor bgms q4 Code(s): E11.9 - TYPE 2 DIABETES MELLITUS WITHOUT COMPLICATIONS (5) ESBL (extended spectrum beta-lactamase) producing bacteria infection Assessment/Plan: esbl in wound culture. continue IV antibiotics per ID maintain contact precautions. Code(s): A49.9 - BACTERIAL INFECTION, UNSPECIFIED; Z16.12 - EXTENDED SPECTRUM BETA LACTAMASE (ESBL) RESISTANCE (6) HTN (hypertension) Assessment/Plan: BP improving. ICU monitoring with frequent checks on pressors for support. Code(s): I10 - ESSENTIAL (PRIMARY) HYPERTENSION (7) Left-sided weakness Assessment/Plan: PT once more stable Code(s): R53.1 - WEAKNESS (8) Acute respiratory failure Assessment/Plan: on bipap support. care per pulmonary on solumedrol Code(s): J96.00 - ACUTE RESPIRATORY FAILURE, UNSP W HYPOXIA OR HYPERCAPNIA (9) Acute Crohn's disease Assessment/Plan: lysis of adhesions, segmental resection of small intestinal perforation with side-side stapled anastomosis, abdominal washout, resection of portion of omentum. advance diet as per surgery. on meropenem, flagyl. GI following. Code(s): K50.90 - CROHN'S DISEASE, UNSPECIFIED, WITHOUT COMPLICATIONS (10) Prophylactic measure Assessment/Plan: NPO monitor electrolytes IVF DVT on lovenox 110 Dispo requires ICU care full code Code(s): Z29.9 - ENCOUNTER FOR PROPHYLACTIC MEASURES, UNSPECIFIED Visit type - Emergency Visit Emergency Visit: Yes ED Registration Date: 03/09/19 Care time: The patient presented to the Emergency Department on the above date and was hospitalized for further evaluation of their emergent condition. - New Patient This patient is new to me today: No - Critical Care Critical Care patient: Yes Total Critical Care Time (in minutes): 55 Critical Care Statement: The care of this patient involved high complexity decision making to prevent further life threatening deterioration of the patient 's condition and/or to evaluate & treat vital organ system(s) failure or risk of failure.
[2019-03-19] MEDS: AMINO ACIDS/PROTEIN HYDROLYS 30 ML LIQUID.PKT PO SCH ×3 (09:41→17:41)
[2019-03-19] MEDS ORDERED: PT OWN MED DRAWER 7, Y5N ONE ×2 (10:03→23:59)
[2019-03-19] MEDS: KCL 10 MEQ IVPB 10 MEQ/100 ML INFUS.BAG IVPB SCH ×4 (10:07→18:54)
[2019-03-19] MEDS: ENOXAPARIN NA (PORCINE) 60 MG/0.6 ML DISP.SYRIN SQ SCH (10:16)
[2019-03-19 11:00] LABS: ANISOCYTOSIS 1+; MACROCYTOSIS 0; OVALOCYTE 1+; PLATELET ESTIMATE DECREASED
--- NOTE | 2019-03-19 11:21 | ECHO ---
Name: ASIF, REG JOSE A Exam:Adult Echocardiogram Study Date: 03/19/2019 08:35 AM Age: 48 yrs Reason For Study: A-Fib Height: 63 in Weight: 164 lb BSA: 1.8 m2 MMode/2D Measurements & Calculations IVSd: 0.95 cm Ao root diam: 2.7 cm LVIDd: 4.2 cm LA dimension: 1.7 cm LVIDs: 2.4 cm LVPWd: 0.87 cm EDV(Teich): 80.3 ml LVOT diam: 2.0 cm ESV(Teich): 20.8 ml LAV (MOD-bp): 45.1 ml Doppler Measurements & Calculations MV E max rojelio: 133.0 cm/sec Ao V2 max: 172.1 cm/sec MV A max rojelio: 96.3 cm/sec Ao max P.8 mmHg MV E/A: 1.4 MV dec time: 0.19 sec DALY(V,D): 1.9 cm2 LV V1 max P.6 mmHg TR max rojelio: 327.4 cm/sec LV V1 max: 107.0 cm/sec TR max P.2 mmHg PA V2 max: 138.7 cm/sec Med Peak E' Rojelio: 8.2 cm/sec PA max P.7 mmHg Med E/e': 16.3 Lat Peak E' Rojelio: 15.7 cm/sec Lat E/e': 8.5 PI Vmax: 114.4 cm/sec Left Ventricle Left ventricular systolic function is normal. Ejection Fraction = 55-60%. The transmitral spectral Do ppler flow pattern is normal for age. Septal motion is consistent with conduction abnormality. Right Ventricle The right ventricle is grossly normal size. The right ventricular systolic function is grossly normal . Atria The left atrium is borderline dilated. Right atrial size is normal. Mitral Valve The mitral valve is normal in structure and function. There is no mitral valve stenosis. There is mil d mitral regurgitation. Tricuspid Valve The tricuspid valve is normal in structure and function. There is mild to moderate tricuspid regurgit ation. Right ventricular systolic pressure is elevated at 40-50mmHg. Aortic Valve The aortic valve is trileaflet. No hemodynamically significant valvular aortic stenosis. No aortic regurgitation is present. Pulmonic Valve The pulmonic valve is not well seen, but is grossly normal. There is no pulmonic valvular stenosis. T here is no pulmonic valvular regurgitation. Great Vessels The aortic root is normal size. Pericardium/Pleura There is no pericardial effusion. Interpretation Summary Septal motion is consistent with conduction abnormality. Left ventricular systolic function is normal. Ejection Fraction = 55-60%. The left atrium is borderline dilated. There is mild mitral regurgitation. There is mild to moderate tricuspid regurgitation. Right ventricular systolic pressure is elevated at 40-50mmHg. There is no pericardial effusion. MD Rodney *Mitali 03/19/2019 11:20 AM
--- NOTE | 2019-03-19 11:28 | PN ---
Teaching Attending Note Name of Resident: Howie Chavis ATTENDING PHYSICIAN STATEMENT I saw and evaluated the patient. I reviewed the resident's note and discussed the case with the resident. I agree with the resident's findings and plan as documented. SUBJECTIVE: Patient seen and examined in the ICU. Events from overnight noted. CP arrest requiring CPR and Intubation. Apparent ROSC after 5 minutes. Now intubated and minimally responsive. Agonal breathing. No pressors. OBJECTIVE: Intake & Output 03/16/19 03/17/19 03/18/19 03/19/19 23:59 23:59 23:59 23:59 Intake Total 1751.2 834.8 1400 609 Output Total 1350 3300 3600 Balance 401.2 -2465.2 -2200 609 Weight 162 lb 4.163 oz 164 lb 12.8 oz Last Vital Signs Temp Pulse Resp BP Pulse Ox 98.8 F 103 H 28 H 112/60 90 L 03/19/19 10:00 03/19/19 10:00 03/19/19 10:00 03/19/19 10:00 03/19/19 08:00 Active Medications Amino Acids (Prosource No Carb Liquid Pkt) 30 ml PO TIDCM [facility] Last Admin: 03/19/19 09:41 Dose: Not Given Enoxaparin Sodium (Lovenox -) 110 mg SQ DAILY [facility] Last Admin: 03/19/19 10:16 Dose: 110 mg Furosemide (Lasix Injection -) 40 mg IVPUSH BID@0600,1400 [facility] Last Admin: 03/19/19 05:35 Dose: 40 mg Metronidazole (Flagyl 500mg Premixed Ivpb -) 500 mg in 100 mls @ 100 mls/hr IVPB Q8H-IV [facility] Last Admin: 03/19/19 10:16 Dose: 100 mls/hr Meropenem 1 gm/ Dextrose 100 mls @ 200 mls/hr IVPB Q8H-IV [facility] Last Admin: 03/19/19 10:17 Dose: 200 mls/hr Linezolid (Zyvox 600 Mg Premix Bag (Restricted To Id) -) 600 mg in 300 mls @ 300 mls/hr IVPB Q12H [facility]; Protocol Last Admin: 03/19/19 00:23 Dose: 300 mls/hr Insulin Aspart (Novolog Vial Sliding Scale -) 1 vial SQ ACHS [facility]; Protocol Last Admin: 03/19/19 06:00 Dose: 8 units Ketorolac Tromethamine (Toradol Injection -) 30 mg IVPUSH Q6H PRN PRN Reason: PAIN LEVEL 6-10 Stop: 03/19/19 14:06 Last Admin: 03/19/19 05:35 Dose: 30 mg Lorazepam (Ativan Injection -) 0.5 mg IM Q6H PRN PRN Reason: ANXIETY Last Admin: 03/18/19 23:00 Dose: 0.5 mg Ondansetron HCl (Zofran Injection) 4 mg IVPUSH Q6H PRN PRN Reason: NAUSEA AND/OR VOMITING Last Admin: 03/14/19 05:07 Dose: 4 mg Vancomycin HCl (Vancomycin Oral Solution) 125 mg PO Q6HPO [facility] Last Admin: 03/19/19 07:25 Dose: Not Given Gen: Minimally responsive, Intubated Heart: S1S2, tachycardia Lungs: intubated, bilateral scattered rhonchi Abd: soft, nontender Ext: + edema [employer]: Minimally responsive, pupils equal but sluggish Laboratory Results - last 24 hr 03/18/19 03/18/19 03/18/19 05:30 17:00 17:14 WBC RBC Hgb Hct MCV MCH MCHC RDW Plt Count MPV Absolute Neuts (auto) Neutrophils % Neutrophils % (Manual) 76.0 Band Neutrophils % 5.0 Lymphocytes % Lymphocytes % (Manual) 12.0 D Monocytes % Monocytes % (Manual) 0 L Eosinophils % Eosinophils % (Manual) 2.0 D Basophils % Basophils % (Manual) 0.0 Myelocytes % (Man) 0 Promyelocytes % (Man) 0 Blast Cells % (Manual) 0 Nucleated RBC % Metamyelocytes 1 D Hypochromia 1+ Toxic Granulation 2+ Platelet Estimate Decreased Platelet Comment Present Polychromasia 1+ Poikilocytosis 1+ Anisocytosis 2+ Microcytosis 1+ Macrocytosis 0 Spherocytes 1+ Target Cells 1+ Tear Drop Cells 1+ [place] Cells 1+ PTT (Actin FS) Anticoagulation Therapy Puncture Site ABG pH ABG pCO2 at Pt Temp ABG pO2 at Pt Temp ABG HCO3 ABG O2 Sat (Measured) ABG O2 Content ABG Base Excess Atul Test O2 Delivery Device Oxygen Flow Rate Vent Mode Vent Rate Mechanical Rate PEEP Pressure Support Vent Sodium 145 Potassium 3.0 L Chloride 107 Carbon Dioxide 19 L Anion Gap 18 H BUN 6.8 L Creatinine 0.3 L Est GFR (CKD-EPI)AfAm 155.82 Est GFR (CKD-EPI)NonAf 134.44 POC Glucometer 299 Random Glucose 303 H Lactic Acid Calcium 6.7 L* Phosphorus 3.5 Magnesium 2.0 Total Bilirubin AST ALT Alkaline Phosphatase Creatine Kinase Troponin I Total Protein Albumin Prealbumin 03/18/19 03/19/19 03/19/19 23:04 05:00 05:00 WBC 8.0 RBC 3.37 L Hgb 8.3 L Hct 25.8 L MCV 76.5 L MCH 24.7 L MCHC 32.3 RDW 24.0 H Plt Count 94 L MPV 10.2 Absolute Neuts (auto) 6.9 Neutrophils % 87.4 H Neutrophils % (Manual) Band Neutrophils % Lymphocytes % 9.3 D Lymphocytes % (Manual) Monocytes % 1.8 L Monocytes % (Manual) Eosinophils % 0.8 Eosinophils % (Manual) Basophils % 0.7 Basophils % (Manual) Myelocytes % (Man) Promyelocytes % (Man) Blast Cells % (Manual) Nucleated RBC % 0 Metamyelocytes Hypochromia Toxic Granulation Platelet Estimate Platelet Comment Polychromasia Poikilocytosis Anisocytosis Microcytosis Macrocytosis Spherocytes Target Cells Tear Drop Cells [place] Cells PTT (Actin FS) 30.7 Anticoagulation Therapy Puncture Site ABG pH ABG pCO2 at Pt Temp ABG pO2 at Pt Temp ABG HCO3 ABG O2 Sat (Measured) ABG O2 Content ABG Base Excess Atul Test O2 Delivery Device Oxygen Flow Rate Vent Mode Vent Rate Mechanical Rate PEEP Pressure Support Vent Sodium Potassium Chloride Carbon Dioxide Anion Gap BUN Creatinine Est GFR (CKD-EPI)AfAm Est GFR (CKD-EPI)NonAf POC Glucometer 185 Random Glucose Lactic Acid Calcium Phosphorus Magnesium Total Bilirubin AST ALT Alkaline Phosphatase Creatine Kinase Troponin I Total Protein Albumin Prealbumin 03/19/19 03/19/19 03/19/19 05:00 05:00 05:26 WBC RBC Hgb Hct MCV MCH MCHC RDW Plt Count MPV Absolute Neuts (auto) Neutrophils % Neutrophils % (Manual) Band Neutrophils % Lymphocytes % Lymphocytes % (Manual) Monocytes % Monocytes % (Manual) Eosinophils % Eosinophils % (Manual) Basophils % Basophils % (Manual) Myelocytes % (Man) Promyelocytes % (Man) Blast Cells % (Manual) Nucleated RBC % Metamyelocytes Hypochromia Toxic Granulation Platelet Estimate Platelet Comment Polychromasia Poikilocytosis Anisocytosis Microcytosis Macrocytosis Spherocytes Target Cells Tear Drop Cells [place] Cells PTT (Actin FS) Anticoagulation Therapy Puncture Site ABG pH ABG pCO2 at Pt Temp ABG pO2 at Pt Temp ABG HCO3 ABG O2 Sat (Measured) ABG O2 Content ABG Base Excess Atul Test O2 Delivery Device Oxygen Flow Rate Vent Mode Vent Rate Mechanical Rate PEEP Pressure Support Vent Sodium 144 Potassium 2.7 L* Chloride 106 Carbon Dioxide 19 L Anion Gap 18 H BUN 6.8 L Creatinine 0.4 L Est GFR (CKD-EPI)AfAm 141.75 Est GFR (CKD-EPI)NonAf 122.30 POC Glucometer 332 Random Glucose 335 H Lactic Acid Calcium 6.5 L* Phosphorus 1.7 L Magnesium 1.7 L Total Bilirubin 0.4 AST 34 ALT 10 L Alkaline Phosphatase 363 H Creatine Kinase Troponin I Total Protein 4.1 L Albumin 1.2 L Prealbumin 7.0 L 03/19/19 03/19/19 03/19/19 06:20 06:20 06:20 WBC 8.9 RBC 3.78 Hgb 9.1 L Hct 30.8 L D MCV 81.4 MCH 24.1 L MCHC 29.6 L RDW 24.5 H Plt Count 87 L MPV 9.8 Absolute Neuts (auto) Neutrophils % Neutrophils % (Manual) Band Neutrophils % Lymphocytes % Lymphocytes % (Manual) Monocytes % Monocytes % (Manual) Eosinophils % Eosinophils % (Manual) Basophils % Basophils % (Manual) Myelocytes % (Man) Promyelocytes % (Man) Blast Cells % (Manual) Nucleated RBC % Metamyelocytes Hypochromia Toxic Granulation Platelet Estimate Platelet Comment Polychromasia Poikilocytosis Anisocytosis Microcytosis Macrocytosis Spherocytes Target Cells Tear Drop Cells [place] Cells PTT (Actin FS) Anticoagulation Therapy Puncture Site ABG pH ABG pCO2 at Pt Temp ABG pO2 at Pt Temp ABG HCO3 ABG O2 Sat (Measured) ABG O2 Content ABG Base Excess Atul Test O2 Delivery Device Oxygen Flow Rate Vent Mode Vent Rate Mechanical Rate PEEP Pressure Support Vent Sodium 146 H Potassium 2.9 L* Chloride 106 Carbon Dioxide 16 L Anion Gap 24 H BUN 7.8 Creatinine 0.7 Est GFR (CKD-EPI)AfAm 117.91 Est GFR (CKD-EPI)NonAf 101.74 POC Glucometer Random Glucose 371 H Lactic Acid 8.1 H* Calcium 7.0 L Phosphorus Magnesium 2.3 Total Bilirubin AST ALT Alkaline Phosphatase Creatine Kinase Troponin I Total Protein Albumin Prealbumin 03/19/19 03/19/19 03/19/19 06:20 06:22 06:40 WBC RBC Hgb Hct MCV MCH MCHC RDW Plt Count MPV Absolute Neuts (auto) Neutrophils % Neutrophils % (Manual) Band Neutrophils % Lymphocytes % Lymphocytes % (Manual) Monocytes % Monocytes % (Manual) Eosinophils % Eosinophils % (Manual) Basophils % Basophils % (Manual) Myelocytes % (Man) Promyelocytes % (Man) Blast Cells % (Manual) Nucleated RBC % Metamyelocytes Hypochromia Toxic Granulation Platelet Estimate Platelet Comment Polychromasia Poikilocytosis Anisocytosis Microcytosis Macrocytosis Spherocytes Target Cells Tear Drop Cells [place] Cells PTT (Actin FS) Anticoagulation Therapy No Result Required. Puncture Site Right radial ABG pH 7.12 L* ABG pCO2 at Pt Temp 57.3 H ABG pO2 at Pt Temp 131 H ABG HCO3 17.8 L ABG O2 Sat (Measured) 96.9 ABG O2 Content 12.4 ABG Base Excess -11.0 L Atul Test Positive O2 Delivery Device No Result Required. Oxygen Flow Rate 100 Vent Mode Vol/ac Vent Rate 14 Mechanical Rate No Result Required. PEEP 5.0 Pressure Support Vent 400 Sodium Potassium Chloride Carbon Dioxide Anion Gap BUN Creatinine Est GFR (CKD-EPI)AfAm Est GFR (CKD-EPI)NonAf POC Glucometer 312 Random Glucose Lactic Acid Calcium Phosphorus Magnesium Total Bilirubin AST ALT Alkaline Phosphatase Creatine Kinase 71 Troponin I 0.53 H Total Protein Albumin Prealbumin 03/19/19 03/19/19 03/19/19 06:40 09:11 10:41 WBC RBC Hgb Hct MCV MCH MCHC RDW Plt Count MPV Absolute Neuts (auto) Neutrophils % Neutrophils % (Manual) Band Neutrophils % Lymphocytes % Lymphocytes % (Manual) Monocytes % Monocytes % (Manual) Eosinophils % Eosinophils % (Manual) Basophils % Basophils % (Manual) Myelocytes % (Man) Promyelocytes % (Man) Blast Cells % (Manual) Nucleated RBC % Metamyelocytes Hypochromia Toxic Granulation Platelet Estimate Platelet Comment Polychromasia Poikilocytosis Anisocytosis Microcytosis Macrocytosis Spherocytes Target Cells Tear Drop Cells [place] Cells PTT (Actin FS) Anticoagulation Therapy No Result Required. Puncture Site Right radial Right radial ABG pH 7.04 L* 7.23 L ABG pCO2 at Pt Temp 58.1 H 54.7 H ABG pO2 at Pt Temp 67.5 L 86.4 ABG HCO3 15.0 L 21.9 L ABG O2 Sat (Measured) 78.5 L 93.7 L ABG O2 Content 10.7 11.6 ABG Base Excess -15.1 L -5.2 L Atul Test Positive Positive O2 Delivery Device No Result Required. Oxygen Flow Rate 100% 100 Vent Mode A/c Vol/ac Vent Rate 14 14 Mechanical Rate No Result Required. PEEP 5.0 5.0 Pressure Support Vent 400 400 Sodium Potassium Chloride Carbon Dioxide Anion Gap BUN Creatinine Est GFR (CKD-EPI)AfAm Est GFR (CKD-EPI)NonAf POC Glucometer 303 Random Glucose Lactic Acid Calcium Phosphorus Magnesium Total Bilirubin AST ALT Alkaline Phosphatase Creatine Kinase Troponin I Total Protein Albumin Prealbumin ASSESSMENT AND PLAN: CP arrest with JUAQUIN Acute Hypoxic Respiratory Failure Perforated Small Bowel s/p ex-lap/RAYSHAWN/segmental SB resection Crohn's Disease Peritonitis +C diff Colitis Septic Shock Lactic Acidosis Volume Overload h/o PE HTN DM Hyperlipidemia h/o CVA - ABX per ID - Change access - HOld all sedation to assess Neuro status - monitor urine output, creatinine - monitor and replete lytes - Pressors for MAP < 65 - Glycemic control - AC due to PE/DVT history - Requires continued ICU monitoring Overall prognosis likely grave for meaningful survival Dr Otero Critical care time spent in revieiwing chart, evaluating patient and formulating plan 35 min
--- NOTE | 2019-03-19 11:52 | PN ---
Progress Note (short form) - Note Progress Note: Events from overnight noted. CP arrest requiring CPR and Intubation. Apparent ROSC after 5 minutes. Agonally breathing on vent. Family at bedside. decisions regarding goals of care to be made. Continued supportive measures, treatment of C. Diff. Problem List - Problems (1) Small bowel perforation Code(s): K63.1 - PERFORATION OF INTESTINE (NONTRAUMATIC) (2) Clostridium difficile diarrhea Code(s): A04.72 - ENTEROCOLITIS D/T CLOSTRIDIUM DIFFICILE, NOT SPCF RECUR
--- NOTE | 2019-03-19 13:00 | PN ---
Progress Note, Physician History of Present Illness: went into resp distress patient coded had to be intubated this morning now intubated - Current Medication List Current Medications: Active Medications Amino Acids (Prosource No Carb Liquid Pkt) 30 ml PO TIDCM [facility] Last Admin: 03/19/19 09:41 Dose: Not Given Enoxaparin Sodium (Lovenox -) 110 mg SQ DAILY [facility] Last Admin: 03/19/19 10:16 Dose: 110 mg Furosemide (Lasix Injection -) 40 mg IVPUSH BID@0600,1400 [facility] Last Admin: 03/19/19 05:35 Dose: 40 mg Metronidazole (Flagyl 500mg Premixed Ivpb -) 500 mg in 100 mls @ 100 mls/hr IVPB Q8H-IV [facility] Last Admin: 03/19/19 10:16 Dose: 100 mls/hr Meropenem 1 gm/ Dextrose 100 mls @ 200 mls/hr IVPB Q8H-IV [facility] Last Admin: 03/19/19 10:17 Dose: 200 mls/hr Linezolid (Zyvox 600 Mg Premix Bag (Restricted To Id) -) 600 mg in 300 mls @ 300 mls/hr IVPB Q12H [facility]; Protocol Last Admin: 03/19/19 00:23 Dose: 300 mls/hr Insulin Aspart (Novolog Vial Sliding Scale -) 1 vial SQ ACHS [facility]; Protocol Last Admin: 03/19/19 06:00 Dose: 8 units Ketorolac Tromethamine (Toradol Injection -) 30 mg IVPUSH Q6H PRN PRN Reason: PAIN LEVEL 6-10 Stop: 03/19/19 14:06 Last Admin: 03/19/19 05:35 Dose: 30 mg Lorazepam (Ativan Injection -) 0.5 mg IM Q6H PRN PRN Reason: ANXIETY Last Admin: 03/18/19 23:00 Dose: 0.5 mg Ondansetron HCl (Zofran Injection) 4 mg IVPUSH Q6H PRN PRN Reason: NAUSEA AND/OR VOMITING Last Admin: 03/14/19 05:07 Dose: 4 mg Vancomycin HCl (Vancomycin Oral Solution) 125 mg PO Q6HPO [facility] Last Admin: 03/19/19 07:25 Dose: Not Given - Objective Vital Signs: Vital Signs Temperature 98.8 F 03/19/19 10:00 Pulse Rate 103 H 03/19/19 10:00 Respiratory Rate 15 03/19/19 12:38 Blood Pressure 112/60 03/19/19 10:00 O2 Sat by Pulse Oximetry (%) 90 L 03/19/19 08:00 Constitutional: Yes: Other Cardiovascular: Yes: Tachycardia Respiratory: Yes: Intubated, Mechanically Ventilated Gastrointestinal: Yes: Normal Bowel Sounds, Soft Musculoskeletal: Yes: WNL Extremities: Yes: WNL Neurological: Yes: Other Labs: CBC, BMP 03/19/19 06:20 03/19/19 06:20 INR, PTT INR 1.09 (0.83-1.09) 03/14/19 19:45 - ....Imaging Chest X-ray: Report Reviewed, Image Reviewed Assessment/Plan SBO versus flair of inflammatory bowel disease R/O GI source of infection Type I IDDM, PE HTN HLD CVA with mild left-sided weakness cdiff plan continue abx ventilator nutrition close watch rest as per icu cc 40 min
[2019-03-19] MEDS ORDERED: MIDAZOLAM HCL 5 MG/1 ML Single Dose Vial IVPUSH ONE (13:38)
[2019-03-19] MEDS ORDERED: MIDAZOLAM IN 0.9 % SOD.CHLORID 1 MG/1 ML PLAST..BAG ONE (13:41)
[2019-03-19] MEDS: MIDAZOLAM 100 MG in SODIUM CHLORIDE 100 ML IVPB SCH (13:45)
--- NOTE | 2019-03-19 14:07 | PN ---
Physical Exam: SUBJECTIVE: Patient seen and examined at bedside. Code 99 called this AM due to patient desatting after removing BIPAP mask voluntarily and subsequently was intubated. Refer to rapid note for further details. OBJECTIVE: Vital Signs Period Temp Pulse Resp BP Sys/Rapp Pulse Ox Last 24 Hr 98 F-99.2 F 75-108 12-35 89-115/53-70 62-104 GENERAL: The patient is pt intubated off sedation, non-responsive to commands pupils equal but sluggish HEAD: Normal with no signs of trauma. EYES: sluggish pupils to stimuli. Abd: soft, nontender Ext: + edema NECK: supple. LUNGS: Breath sounds equal, intubated, bilateral scattered rhonchi HEART: Regular rate and rhythm, S1, S2 without murmur, rub or gallop. ABDOMEN: non-distended. SKIN: Warm, dry, no rashes or lesions noted Laboratory Results - last 24 hr 03/18/19 03/18/19 03/18/19 17:00 17:14 23:04 WBC RBC Hgb Hct MCV MCH MCHC RDW Plt Count MPV Absolute Neuts (auto) Neutrophils % Neutrophils % (Manual) Band Neutrophils % Lymphocytes % Lymphocytes % (Manual) Monocytes % Monocytes % (Manual) Eosinophils % Eosinophils % (Manual) Basophils % Basophils % (Manual) Myelocytes % (Man) Promyelocytes % (Man) Blast Cells % (Manual) Nucleated RBC % Metamyelocytes Hypochromia Platelet Estimate Polychromasia Poikilocytosis Anisocytosis Microcytosis Macrocytosis Ovalocytes Schistocytes PTT (Actin FS) Anticoagulation Therapy Puncture Site ABG pH ABG pCO2 at Pt Temp ABG pO2 at Pt Temp ABG HCO3 ABG O2 Sat (Measured) ABG O2 Content ABG Base Excess Atul Test O2 Delivery Device Oxygen Flow Rate Vent Mode Vent Rate Mechanical Rate PEEP Pressure Support Vent Sodium 145 Potassium 3.0 L Chloride 107 Carbon Dioxide 19 L Anion Gap 18 H BUN 6.8 L Creatinine 0.3 L Est GFR (CKD-EPI)AfAm 155.82 Est GFR (CKD-EPI)NonAf 134.44 POC Glucometer 299 185 Random Glucose 303 H Lactic Acid Calcium 6.7 L* Phosphorus 3.5 Magnesium 2.0 Total Bilirubin AST ALT Alkaline Phosphatase Creatine Kinase Troponin I Total Protein Albumin Prealbumin 03/19/19 03/19/19 03/19/19 05:00 05:00 05:00 WBC 8.0 RBC 3.37 L Hgb 8.3 L Hct 25.8 L MCV 76.5 L MCH 24.7 L MCHC 32.3 RDW 24.0 H Plt Count 94 L MPV 10.2 Absolute Neuts (auto) 6.9 Neutrophils % 87.4 H Neutrophils % (Manual) 81.6 Band Neutrophils % 0.0 Lymphocytes % 9.3 D Lymphocytes % (Manual) 10.2 Monocytes % 1.8 L Monocytes % (Manual) 2 L D Eosinophils % 0.8 Eosinophils % (Manual) 2.1 Basophils % 0.7 Basophils % (Manual) 0.0 Myelocytes % (Man) 0 Promyelocytes % (Man) 0 Blast Cells % (Manual) 0 Nucleated RBC % 0 Metamyelocytes 3 H D Hypochromia 0 Platelet Estimate Decreased Polychromasia 1+ Poikilocytosis 2+ Anisocytosis 1+ Microcytosis 1+ Macrocytosis 0 Ovalocytes 1+ Schistocytes 1+ PTT (Actin FS) 30.7 Anticoagulation Therapy Puncture Site ABG pH ABG pCO2 at Pt Temp ABG pO2 at Pt Temp ABG HCO3 ABG O2 Sat (Measured) ABG O2 Content ABG Base Excess Atul Test O2 Delivery Device Oxygen Flow Rate Vent Mode Vent Rate Mechanical Rate PEEP Pressure Support Vent Sodium 144 Potassium 2.7 L* Chloride 106 Carbon Dioxide 19 L Anion Gap 18 H BUN 6.8 L Creatinine 0.4 L Est GFR (CKD-EPI)AfAm 141.75 Est GFR (CKD-EPI)NonAf 122.30 POC Glucometer Random Glucose 335 H Lactic Acid Calcium 6.5 L* Phosphorus 1.7 L Magnesium 1.7 L Total Bilirubin 0.4 AST 34 ALT 10 L Alkaline Phosphatase 363 H Creatine Kinase Troponin I Total Protein 4.1 L Albumin 1.2 L Prealbumin 03/19/19 03/19/19 03/19/19 05:00 05:26 06:20 WBC 8.9 RBC 3.78 Hgb 9.1 L Hct 30.8 L D MCV 81.4 MCH 24.1 L MCHC 29.6 L RDW 24.5 H Plt Count 87 L MPV 9.8 Absolute Neuts (auto) Neutrophils % Neutrophils % (Manual) Band Neutrophils % Lymphocytes % Lymphocytes % (Manual) Monocytes % Monocytes % (Manual) Eosinophils % Eosinophils % (Manual) Basophils % Basophils % (Manual) Myelocytes % (Man) Promyelocytes % (Man) Blast Cells % (Manual) Nucleated RBC % Metamyelocytes Hypochromia Platelet Estimate Polychromasia Poikilocytosis Anisocytosis Microcytosis Macrocytosis Ovalocytes Schistocytes PTT (Actin FS) Anticoagulation Therapy Puncture Site ABG pH ABG pCO2 at Pt Temp ABG pO2 at Pt Temp ABG HCO3 ABG O2 Sat (Measured) ABG O2 Content ABG Base Excess Atul Test O2 Delivery Device Oxygen Flow Rate Vent Mode Vent Rate Mechanical Rate PEEP Pressure Support Vent Sodium Potassium Chloride Carbon Dioxide Anion Gap BUN Creatinine Est GFR (CKD-EPI)AfAm Est GFR (CKD-EPI)NonAf POC Glucometer 332 Random Glucose Lactic Acid Calcium Phosphorus Magnesium Total Bilirubin AST ALT Alkaline Phosphatase Creatine Kinase Troponin I Total Protein Albumin Prealbumin 7.0 L 03/19/19 03/19/19 03/19/19 06:20 06:20 06:20 WBC RBC Hgb Hct MCV MCH MCHC RDW Plt Count MPV Absolute Neuts (auto) Neutrophils % Neutrophils % (Manual) Band Neutrophils % Lymphocytes % Lymphocytes % (Manual) Monocytes % Monocytes % (Manual) Eosinophils % Eosinophils % (Manual) Basophils % Basophils % (Manual) Myelocytes % (Man) Promyelocytes % (Man) Blast Cells % (Manual) Nucleated RBC % Metamyelocytes Hypochromia Platelet Estimate Polychromasia Poikilocytosis Anisocytosis Microcytosis Macrocytosis Ovalocytes Schistocytes PTT (Actin FS) Anticoagulation Therapy Puncture Site ABG pH ABG pCO2 at Pt Temp ABG pO2 at Pt Temp ABG HCO3 ABG O2 Sat (Measured) ABG O2 Content ABG Base Excess Atul Test O2 Delivery Device Oxygen Flow Rate Vent Mode Vent Rate Mechanical Rate PEEP Pressure Support Vent Sodium 146 H Potassium 2.9 L* Chloride 106 Carbon Dioxide 16 L Anion Gap 24 H BUN 7.8 Creatinine 0.7 Est GFR (CKD-EPI)AfAm 117.91 Est GFR (CKD-EPI)NonAf 101.74 POC Glucometer Random Glucose 371 H Lactic Acid 8.1 H* Calcium 7.0 L Phosphorus Magnesium 2.3 Total Bilirubin AST ALT Alkaline Phosphatase Creatine Kinase 71 Troponin I 0.53 H Total Protein Albumin Prealbumin 03/19/19 03/19/19 03/19/19 06:22 06:40 06:40 WBC RBC Hgb Hct MCV MCH MCHC RDW Plt Count MPV Absolute Neuts (auto) Neutrophils % Neutrophils % (Manual) Band Neutrophils % Lymphocytes % Lymphocytes % (Manual) Monocytes % Monocytes % (Manual) Eosinophils % Eosinophils % (Manual) Basophils % Basophils % (Manual) Myelocytes % (Man) Promyelocytes % (Man) Blast Cells % (Manual) Nucleated RBC % Metamyelocytes Hypochromia Platelet Estimate Polychromasia Poikilocytosis Anisocytosis Microcytosis Macrocytosis Ovalocytes Schistocytes PTT (Actin FS) Anticoagulation Therapy No Result Required. No Result Required. Puncture Site Right radial Right radial ABG pH 7.12 L* 7.04 L* ABG pCO2 at Pt Temp 57.3 H 58.1 H ABG pO2 at Pt Temp 131 H 67.5 L ABG HCO3 17.8 L 15.0 L ABG O2 Sat (Measured) 96.9 78.5 L ABG O2 Content 12.4 10.7 ABG Base Excess -11.0 L -15.1 L Atul Test Positive Positive O2 Delivery Device No Result Required. No Result Required. Oxygen Flow Rate 100 100% Vent Mode Vol/ac A/c Vent Rate 14 14 Mechanical Rate No Result Required. No Result Required. PEEP 5.0 5.0 Pressure Support Vent 400 400 Sodium Potassium Chloride Carbon Dioxide Anion Gap BUN Creatinine Est GFR (CKD-EPI)AfAm Est GFR (CKD-EPI)NonAf POC Glucometer 312 Random Glucose Lactic Acid Calcium Phosphorus Magnesium Total Bilirubin AST ALT Alkaline Phosphatase Creatine Kinase Troponin I Total Protein Albumin Prealbumin 03/19/19 03/19/19 09:11 10:41 WBC RBC Hgb Hct MCV MCH MCHC RDW Plt Count MPV Absolute Neuts (auto) Neutrophils % Neutrophils % (Manual) Band Neutrophils % Lymphocytes % Lymphocytes % (Manual) Monocytes % Monocytes % (Manual) Eosinophils % Eosinophils % (Manual) Basophils % Basophils % (Manual) Myelocytes % (Man) Promyelocytes % (Man) Blast Cells % (Manual) Nucleated RBC % Metamyelocytes Hypochromia Platelet Estimate Polychromasia Poikilocytosis Anisocytosis Microcytosis Macrocytosis Ovalocytes Schistocytes PTT (Actin FS) Anticoagulation Therapy Puncture Site Right radial ABG pH 7.23 L ABG pCO2 at Pt Temp 54.7 H ABG pO2 at Pt Temp 86.4 ABG HCO3 21.9 L ABG O2 Sat (Measured) 93.7 L ABG O2 Content 11.6 ABG Base Excess -5.2 L Atul Test Positive O2 Delivery Device Oxygen Flow Rate 100 Vent Mode Vol/ac Vent Rate 14 Mechanical Rate PEEP 5.0 Pressure Support Vent 400 Sodium Potassium Chloride Carbon Dioxide Anion Gap BUN Creatinine Est GFR (CKD-EPI)AfAm Est GFR (CKD-EPI)NonAf POC Glucometer 303 Random Glucose Lactic Acid Calcium Phosphorus Magnesium Total Bilirubin AST ALT Alkaline Phosphatase Creatine Kinase Troponin I Total Protein Albumin Prealbumin Active Medications Generic Name Dose Route Start Last Admin Trade Name Freq PRN Reason Stop Dose Admin Amino Acids 30 ml 03/19/19 08:00 03/19/19 13:10 Prosource No Carb Liquid Pkt PO Not Given TIDCM [facility] Enoxaparin Sodium 110 mg 03/17/19 13:00 03/19/19 10:16 Lovenox - SQ 110 mg DAILY [facility] Administration Furosemide 40 mg 03/17/19 12:15 03/19/19 13:11 Lasix Injection - IVPUSH 40 mg BID@0600,1400 [facility] Administration Metronidazole 500 mg in 100 mls @ 100 mls/hr 03/15/19 13:00 03/19/19 10:16 Flagyl 500mg Premixed Ivpb - IVPB 100 mls/hr Q8H-IV [facility] Administration Meropenem 1 gm/ Dextrose 100 mls @ 200 mls/hr 03/15/19 13:15 03/19/19 10:17 IVPB 200 mls/hr Q8H-IV [facility] Administration Linezolid 600 mg in 300 mls @ 300 mls/hr 03/18/19 11:45 03/19/19 13:10 Zyvox 600 Mg Premix Bag (Restricted To Id) - IVPB 300 mls/hr Q12H [facility] Administration Protocol Midazolam HCl 100 mg/ Sodium 100 mls @ 1 mls/hr 03/19/19 13:45 Chloride IVPB TITR [facility] Protocol 1 MG/HR Insulin Aspart 1 vial 03/12/19 16:30 03/19/19 11:00 Novolog Vial Sliding Scale - SQ 8 units ACHS [facility] Administration Protocol Lorazepam 0.5 mg 03/14/19 13:10 03/18/19 23:00 Ativan Injection - IM 0.5 mg Q6H PRN Administration ANXIETY Ondansetron HCl 4 mg 03/11/19 20:31 03/14/19 05:07 Zofran Injection IVPUSH 4 mg Q6H PRN Administration NAUSEA AND/OR VOMITING Vancomycin HCl 125 mg 03/15/19 18:00 03/19/19 13:10 Vancomycin Oral Solution PO Not Given Q6HPO [facility] ASSESSMENT/PLAN: 48F PMH IDDM, PE on xarelto, frequent DKA, HTN, HLD, CVA w/ left sided weakness , recent hospitalization at [facility] September 2018 admitted to ICU for SBO. Developed pneumoperitoneum s/p ex-lap. POD #7 Neuro - intubated off sedation would like to assess mental status - Pain ctrl dilaudid [employer] - Tylenol for pain/fever ctrl CV - s/p sinus tachy - No longer hypotensive or tachycardic - Maintain MAP >65 or initiate pressor support. - Off pressors Respiratory - Patient removed BIPAP desatted and intubated - Lasix IV 40 BID - monitor resp status - CXR 03/19/19 GI - Crohn's flair likely, pneumoperitoneum s/p ex-lap - started on linezolid - GI recs appreciated continuing w/ C diff management but have to d/c vanco. ID - ID recs appreciated - c/w flagyl, meropenem 1g TID due to ESBL and klebsiella pna in wound culture. - d/c vanco due to pt unable to tolerate PO med, and start linezolid. - Cx + LF neg bacilli - UCx + VRE - CDiff Ag and toxin pos - downtrending WBC 8 > 13.8 > 16.2 > 7.8 FEN - lasix given - Lytes in AM, replete PRN - Phos repleted - Monitor I/Os - Monitor UrO, Cr PPx: LVX Visit type - Emergency Visit Emergency Visit: Yes ED Registration Date: 03/09/19 Care time: The patient presented to the Emergency Department on the above date and was hospitalized for further evaluation of their emergent condition. - New Patient This patient is new to me today: No - Critical Care Critical Care patient: Yes Total Critical Care Time (in minutes): 40 Critical Care Statement: The care of this patient involved high complexity decision making to prevent further life threatening deterioration of the patient 's condition and/or to evaluate & treat vital organ system(s) failure or risk of failure. - Discharge Referral Referred to [facility] No ATTENDING PHYSICIAN STATEMENT I saw and evaluated the patient. I reviewed the resident's note and discussed the case with the resident. I agree with the resident's findings and plan as documented. SUBJECTIVE: OBJECTIVE: ASSESSMENT AND PLAN:
--- NOTE | 2019-03-19 14:19 | EKG ---
Test Reason : Blood Pressure : / mmHG Vent. Rate : 107 BPM Atrial Rate : 107 BPM P-R Int : 118 ms QRS Dur : 094 ms QT Int : 340 ms P-R-T Axes : 045 082 -81 degrees QTc Int : 453 ms SINUS TACHYCARDIA NONSPECIFIC ST AND T WAVE ABNORMALITY ABNORMAL ECG Confirmed by LUIS LAWLER MD ([id number]) on 03/19/2019 2:18:42 PM Referred By: HLS Confirmed By:LUIS LAWLER MD
--- NOTE | 2019-03-19 14:48 | CON.CARD ---
Consult Consult Specialty:: Cardiology Reason for Consultation:: SP pulseless code - History of Present Illness History of Present Illness: 48 F with IDDM, frequent DKA, crohns colitis, ho CVA with lt sided weakness, she had a diagnosis of PE and was on anticoagulation. Admitted with SBO and perforated bowel. She is post exploratory laperotomy and resection of illial perforation 03/12. Post op course treated for bacteremia and C-Diff. AC was restarted post op. On 03/19/19 6AM she became pulseless and CPR was initiated. Epi was goven and pt was intubated. Telemetry shows rapid Afib around this time and she converted to NSR later. Echocardiogram post code showed preserved LV and RV function, MM TR PASP 40-50. 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 bowel surgery at [facility] 09/15 for SBO - Alcohol/Substance Use Hx Alcohol Use: No History of Substance Use: reports: None - Smoking History Smoking history: Current every day smoker Have you smoked in the past 12 months: Yes Aproximately how many cigarettes per day: 10 - Social History ADL: Independent Occupation: Unemployed History of Recent Travel: No Home Medications - Allergies Allergies/Adverse Reactions: Allergies Allergy/AdvReac Type Severity Reaction Status Date / Time No Known Allergies Allergy Verified 03/09/19 16:48 - Home Medications Home Medications: Ambulatory Orders Aspirin 81 mg PO DAILY #30 tab.chew 08/13/18 Atorvastatin Ca [Lipitor] 40 mg PO HS #30 tablet 08/13/18 Gabapentin 300 mg PO BID 12/23/18 Quetiapine Fumarate [Seroquel -] 25 mg PO BID 12/23/18 Insulin Sliding Scale [Novolog Vial Sliding Scale -] 1 vial SQ ACHS #600 units 12/25/18 Rivaroxaban [Xarelto] 15 mg PO BID #60 tablet 12/25/18 predniSONE [Deltasone -] 40 mg PO DAILY #30 tablet 12/25/18 traMADol HCL [Ultram -] 100 mg PO Q8H PRN #90 tablet MDD 6 12/25/18 Insulin Detemir [Levemir Flextouch] 12 unit SQ BID 01/26/19 Amoxicillin/Potassium Clav [Augmentin 875-125 Tablet] 1 each PO BID 03/07/19 HYDROmorphone [Dilaudid -] 4 mg PO Q6H PRN 03/07/19 Family Medical History Family History: Unable to Obtain Review of Systems Unable to obtain ROS, reason: Intubated. Vital Signs: Vital Signs Temperature 101.0 F H 03/19/19 14:00 Pulse Rate 110 H 03/19/19 14:00 Respiratory Rate 35 H 03/19/19 14:00 Blood Pressure 111/59 L 03/19/19 14:00 O2 Sat by Pulse Oximetry (%) 86 L 03/19/19 09:00 Constitutional: Yes: Well Nourished (agonal respirations) Eyes: Yes: Conjunctiva Clear, EOM Intact HENT: Yes: Atraumatic, Normocephalic Neck: Yes: Supple, Trachea Midline Respiratory: Yes: Regular, CTA Bilaterally, Mechanically Ventilated Gastrointestinal: Yes: Hypoactive Bowel Sounds JVD: No Carotid Bruit: No PMI: Non-Displaced Heart Sounds: Yes: S1, S2 Murmur: No: Systolic Murmur, Diastolic Murmur Edema: No - Other Data Labs, Other Data: CBC, BMP 03/19/19 06:20 03/19/19 06:20 INR, PTT INR 1.09 (0.83-1.09) 03/14/19 19:45 Troponin, BNP 03/19/19 06:20 Troponin I 0.53 H Troponin, BNP 03/19/19 06:20 Troponin I 0.53 H NSR Nl Hatch with nonspecific ST T changes. Echo: Report Reviewed Imaging - Results Chest X-ray: Report Reviewed (diffuse airspace changes.) Problem List - Problems (1) Septic shock Code(s): A41.9 - SEPSIS, UNSPECIFIED ORGANISM; R65.21 - SEVERE SEPSIS WITH SEPTIC SHOCK Assessment/Plan 48 F post exploratory lap and resection of illial perforation 03/12. Post op course treated for bacteremia and C-Diff. AC was restarted post op. On 9/20/19 6AM she became pulseless and CPR was initiated. Epi was goven and pt was intubated. Telemetry shows rapid Afib around this time and she converted to NSR later. Echocardiogram post code showed preserved LV and RV function, MM TR PASP 40-50. -Troponin elevation after code due to demand ischemia. ECG without ST elevations. Echocardiogram showed normal LV function and no wall motion abnormalities. -Continue AC for ho PE. -transient Afib with RVR now converted to NSR. No VT/VF. If recurrent AF develops add Amiodarone. Will see as needed.
[2019-03-19] MEDS ORDERED: HYDROmorphone HCL CARPU-JECT 2 MG/1 ML DISP.SYRIN IM PRN (16:06)
[2019-03-19 16:24] LABS: BASO % 0.1 % (0-2.0); HEMATOCRIT 25.2 % (32.4-45.2); HEMOGLOBIN 7.9 GM/dL (10.7-15.3); LYMPH % 5.8 % (8-40); MCH 23.8 pg (25.7-33.7); MCHC 31.3 g/dl (32.0-36.0); MEAN CELL VOLUME 76.1 fl (80-96); MEAN PLT VOLUME 9.9 fl (7.5-11.1); NEUT % 92.1 % (42.8-82.8); PLATELET COUNT 125 K/MM3 (134-434); RBC 3.31 M/mm3 (3.60-5.2); RDW 24.4 % (11.6-15.6); WHITE BLOOD COUNT 11.7 K/mm3 (4.0-10.0)
[2019-03-19 16:58] LABS: ALBUMIN 1.3 g/dl (3.4-5.0); BILIRUBIN,TOTAL 0.4 mg/dL (0.2-1); BLOOD UREA NITROGEN 6.9 mg/dL (7-18); CREATININE 0.7 mg/dL (0.55-1.3); MAGNESIUM 1.8 mg/dL (1.8-2.4); TOT PROT 4.5 g/dl (6.4-8.2)
[2019-03-19 17:01] LABS: CALCIUM 6.9 mg/dL (8.5-10.1); POTASSIUM 2.9 mmol/L (3.5-5.1)
[2019-03-19] MEDS: HYDROmorphone HCl 2 MG/ML VIAL IM PRN (17:08)
[2019-03-19] MEDS ORDERED: MAGNESIUM SULF 50% (8.12 MEQ/2 ML-1 GM VIAL) IVPB ONE (17:15)
[2019-03-19 17:30] LABS: ANISOCYTOSIS 3+
[2019-03-19 17:32] LABS: PLATELET ESTIMATE ADEQUATE
[2019-03-19 21:48] LABS: ARTERIAL BLD GAS O2 SATURATION 99.8 % (95-98); ARTERIAL BLOOD GAS BASE EXCESS 6.2 meq/l (-2-2); ARTERIAL BLOOD GAS PCO2 40.8 mmHg (35-45); ARTERIAL BLOOD GAS PO2 264 mmHg (80-100); ARTERIAL BLOOD GAS pH 7.48 (7.35-7.45)
[2019-03-19 21:49] LABS: ALLENS TEST POSITIVE
[2019-03-19] MEDS: NOREPINEPHRINE BITARTRATE 8,000 MCG in DEXTROSE 5%-WATER - 492 ML IV SCH (22:11)
[2019-03-19 22:55] LABS: BASO % 0.1 % (0-2.0); EOS % 0.1 % (0-4.5); HEMATOCRIT 21.4 % (32.4-45.2); LYMPH % 12.1 % (8-40); MEAN PLT VOLUME 9.7 fl (7.5-11.1); MONO % 2.7 % (3.8-10.2); PLATELET COUNT 92 K/MM3 (134-434); RBC 2.86 M/mm3 (3.60-5.2); WHITE BLOOD COUNT 8.1 K/mm3 (4.0-10.0)
[2019-03-19 22:58] LABS: HEMOGLOBIN 6.9 GM/dL (10.7-15.3)
[2019-03-19 23:31] LABS: ANISOCYTOSIS 2+; PLATELET ESTIMATE DECREASED
--- NOTE | 2019-03-19 23:40 | PN ---
Progress Note, Physician Chief Complaint: Abdominal Pain History of Present Illness: 48yo female PMH HTN, CVA (left sided hemiparesis), HLD, IDDM, DKA resulting in multiple admissions, dysphagia, gastroparesis, esophageal stricture (EGD 02/14), c/diff (10/2018), SBO September 2018 (s/p SB resection at [facility] as per pt report) presented to [place] ED on the afternoon of 12/21 with complaints of N/V/D/ abd pain intermittently for years. She has had persistent pain but has had improved hemodynamics after IVF resuscitation. - Current Medication List Current Medications: Active Medications Amino Acids (Prosource No Carb Liquid Pkt) 30 ml PO TIDCM [facility] Last Admin: 03/19/19 17:41 Dose: 30 ml Enoxaparin Sodium (Lovenox -) 110 mg SQ DAILY [facility] Last Admin: 03/19/19 10:16 Dose: 110 mg Furosemide (Lasix Injection -) 40 mg IVPUSH BID@0600,1400 [facility] Last Admin: 03/19/19 13:11 Dose: 40 mg Hydromorphone HCl (Dilaudid Vial -) 2 mg IM Q6H PRN PRN Reason: PAIN LEVEL 6-10 Last Admin: 03/19/19 17:08 Dose: 2 mg Metronidazole (Flagyl 500mg Premixed Ivpb -) 500 mg in 100 mls @ 100 mls/hr IVPB Q8H-IV [facility] Last Admin: 03/19/19 17:18 Dose: 100 mls/hr Meropenem 1 gm/ Dextrose 100 mls @ 200 mls/hr IVPB Q8H-IV [facility] Last Admin: 03/19/19 17:13 Dose: 200 mls/hr Linezolid (Zyvox 600 Mg Premix Bag (Restricted To Id) -) 600 mg in 300 mls @ 300 mls/hr IVPB Q12H [facility]; Protocol Last Admin: 03/19/19 13:10 Dose: 300 mls/hr Midazolam HCl 100 mg/ Sodium (Chloride) 100 mls @ 1 mls/hr IVPB TITR [facility]; Protocol Last Titration: 03/19/19 14:16 Dose: 3 mg/hr, 3 mls/hr Norepinephrine Bitartrate 8, (000 mcg/ Dextrose) 500 mls @ 18.75 mls/hr IV TITR [facility]; Protocol Last Admin: 03/19/19 22:11 Dose: 5 mcg/min, 18.75 mls/hr Insulin Aspart (Novolog Vial Sliding Scale -) 1 vial SQ ACHS [facility]; Protocol Last Admin: 03/19/19 22:14 Dose: 2 units Lorazepam (Ativan Injection -) 0.5 mg IM Q6H PRN PRN Reason: ANXIETY Last Admin: 03/18/19 23:00 Dose: 0.5 mg Ondansetron HCl (Zofran Injection) 4 mg IVPUSH Q6H PRN PRN Reason: NAUSEA AND/OR VOMITING Last Admin: 03/14/19 05:07 Dose: 4 mg Vancomycin HCl (Vancomycin Oral Solution) 125 mg PO Q6HPO [facility] Last Admin: 03/19/19 17:34 Dose: 125 mg - Objective Vital Signs: Vital Signs Temperature 99.9 F H 03/19/19 22:00 Pulse Rate 105 H 03/19/19 22:00 Respiratory Rate 22 H 03/19/19 22:00 Blood Pressure 83/52 L 03/19/19 22:11 O2 Sat by Pulse Oximetry (%) 100 03/19/19 21:00 Vital Signs Period Temp Pulse Resp BP Sys/Rapp Pulse Ox Last 24 Hr 98.2 F-102.5 F 101-148 19-36 78-124/50-72 100-100 Intake & Output 03/22/19 03/23/19 03/23/19 23:59 07:59 15:59 Intake Total 982 1560 Output Total 900 1000 Balance 82 560 Weight 148 lb 8 oz Intake: IV 382 684 D10w - 1,000 ml @ 75 mls/ 30 hr IV ASDIR [facility] Rx#: [id number] DIPRIVAN - 1,000,000 mcg 91 237 In 100 ml @ 5 MCG/KG/MIN 2.002 mls/hr IVPB TITR [facility] Rx#:[id number] Levophed - 8,000 Mcg In 143 309 D5w - 492 ml @ 5 MCG/MIN 18.75 mls/hr IV TITR [facility] Rx#:[id number] NOVOLIN R VIAL *For 4 IVPUSH or IV DRIP Only* 100 UNITS In Normal Saline - 99 ml @ 0.1 UNITS/KG/HR 6.61 mls/hr IVPB TITR [facility] Rx#: [id number] Sublimaze Injection - 500 144 108 Mcg In D5w - 90 ml @ 50 MCG/HR 10 mls/hr IVPB TITR [facility] Rx#:[id number] IVPB 600 386 Tube Feeding 240 Tube Irrigant 250 Output: Urine 900 1000 Lott 900 1000 Other: Voiding Method Indwelling Catheter Indwelling Catheter Bowel Movement Yes: flexiseal # Bowel Movements 1 Weight Measurement Method Built in [facility] Constitutional: Yes: No Distress, Calm, Cachectic Eyes: Yes: Conjunctiva Clear, EOM Intact, PERRL HENT: Yes: Atraumatic, Normocephalic Neck: Yes: Supple, Trachea Midline Cardiovascular: Yes: Regular Rate and Rhythm, S1, S2 Respiratory: Yes: Regular, CTA Bilaterally, Mechanically Ventilated Gastrointestinal: Yes: Normal Bowel Sounds, Soft. No: Tenderness ...Rectal Exam: Yes: Deferred Genitourinary: Yes: Lott Present. No: CVA Tenderness - Left, CVA Tenderness - Right Breast(s): No: Mass, Skin Changes Musculoskeletal: No: Joint Stiffness, Joint Swelling Extremities: No: Cool, Cyanosis Edema: Yes Edema: LUE: 2+, RUE: 2+, LLE: 2+, RLE: 2+ Peripheral Pulses WNL: Yes Peripheral Pulses: Left Radial: 2+, Right Radial: 2+, Left Doralis Pedis: 2+, Right Dorsalis Pedis: 2+, Left Femoral: 2+, Right Femoral: 2+ Wound/Incision: Yes: Clean/Dry, Mikey Intact, Dressing Dry and Intact, Unapproximated. No: Draining Neurological: Yes: Alert. No: Oriented Psychiatric: Yes: Alert. No: Oriented Labs: CBC, BMP 03/19/ 21:45 INR, PTT INR 1.09 (0.83-1.09) 03/14/19 19:45 Problem List - Problems (1) Small bowel obstruction Assessment/Plan: 48yo female with MMP including SBO, chronic constipation, Gastroparesis and crohns disease presenting with Abdominal pain. She has several possible explanations for this pain. POD#7 Exp Lap and Segmental resection of small intestinal perforation. Poor saturation and hospital acquired infections ESBL and Cdiff. Intubated overnight. GIB? Monitored Setting ICU management treat Cdiff and ESBL Transfuse as need crohns management oob will follow This patient is critically ill. Time spent reviewing chart, examining patient, talking with providers and/or family and documentation is 35 minutes. Problems reviewed: Yes Code(s): K56.609 - UNSP INTESTNL OBST, UNSP TO PARTIAL VERSUS COMPLETE OBST (2) Abdominal pain Problems reviewed: Yes Code(s): R10.9 - UNSPECIFIED ABDOMINAL PAIN Qualifiers: Abdominal location: generalized Qualified Code(s): R10.84 - Generalized abdominal pain (3) Crohn's disease Code(s): K50.90 - CROHN'S DISEASE, UNSPECIFIED, WITHOUT COMPLICATIONS Qualifiers: Gastrointestinal tract location: small intestine Digestive disease complication type: with rectal bleeding Qualified Code(s): K50.011 - Crohn's disease of small intestine with rectal bleeding (4) DKA (diabetic ketoacidoses) Code(s): E13.10 - OTH DIABETES MELLITUS WITH KETOACIDOSIS WITHOUT COMA Qualifiers: Diabetes mellitus type: type 1 Diabetes mellitus complication detail: without coma Qualified Code(s): E10.10 - Type 1 diabetes mellitus with ketoacidosis without coma (5) Nausea & vomiting Code(s): R11.2 - NAUSEA WITH VOMITING, UNSPECIFIED Qualifiers: Vomiting type: cyclical vomiting Vomiting Intractability: intractable Qualified Code(s): G43.A1 - Cyclical vomiting, intractable (6) Cerebrovascular accident (CVA) Problems reviewed: Yes Code(s): I63.9 - CEREBRAL INFARCTION, UNSPECIFIED Qualifiers: CVA mechanism: unspecified Qualified Code(s): I63.9 - Cerebral infarction, unspecified
[2019-03-19 23:58] LABS: INR 1.49 (0.83-1.09); PROTHROMBIN TIME (PATIENT) 17.7 SEC (9.7-13.0)
[2019-03-20 00:01] LABS: ACTIVATED PTT 36.3 SECONDS (25.2-36.5)
[2019-03-20] MEDS: VANCOMYCIN 250 MG/5 ML ORAL SOLUTION PO SCH ×4 (00:02→17:18)
[2019-03-20] MEDS: LINEZOLID 600 MG PREMIX BAG 600 MG/300 ML BAG IVPB SCH ×3 (00:02→22:58)
[2019-03-20 00:19] LABS: ALBUMIN 1.2 g/dl (3.4-5.0); BILIRUBIN,TOTAL 0.4 mg/dL (0.2-1); BLOOD UREA NITROGEN 7.1 mg/dL (7-18); CREATININE 0.6 mg/dL (0.55-1.3); POTASSIUM 3.1 mmol/L (3.5-5.1)
[2019-03-20 00:21] LABS: CALCIUM 6.4 mg/dL (8.5-10.1)
[2019-03-20] MEDS ORDERED: DEXTROSE 5%-WATER 100 ML IVPB ONE ×3 (01:09→16:59)
[2019-03-20] MEDS ORDERED: MEROPENEM 1 GM VIAL (RESTRICTED TO ID) IVPB ONE ×3 (01:09→16:59)
[2019-03-20] MEDS: MEROPENEM 1 GM in DEXTROSE 5%-WATER 100 ML IVPB SCH ×3 (01:15→17:16)
[2019-03-20] MEDS ORDERED: MIDAZOLAM IN 0.9 % SOD.CHLORID 1 MG/1 ML PLAST..BAG ONE (04:15)
[2019-03-20] MEDS: MIDAZOLAM 100 MG in SODIUM CHLORIDE 100 ML IVPB SCH ×2 (04:23→13:50)
[2019-03-20] MEDS: HYDROmorphone HCl 2 MG/ML VIAL IM PRN ×2 (04:46→10:20)
[2019-03-20] MEDS ORDERED: PT OWN MED DRAWER 7, Y5N ONE ×2 (05:45→11:02)
[2019-03-20] MEDS: FUROSEMIDE 40 MG/4 ML INJECTABLE VIAL IVPUSH SCH (05:49)
[2019-03-20] MEDS: INSULIN SLIDING SCALE (NOVOLOG) 1 VIAL SQ SCH (06:08)
[2019-03-20 06:12] LABS: BASO % 0.2 % (0-2.0); EOS % 0.8 % (0-4.5); HEMATOCRIT 21.8 % (32.4-45.2); HEMOGLOBIN 7.1 GM/dL (10.7-15.3); LYMPH % 12.6 % (8-40); MCH 24.5 pg (25.7-33.7); MCHC 32.5 g/dl (32.0-36.0); MEAN CELL VOLUME 75.3 fl (80-96); MEAN PLT VOLUME 9.3 fl (7.5-11.1); MONO % 1.9 % (3.8-10.2); NEUT % 84.5 % (42.8-82.8); PLATELET COUNT 72 K/MM3 (134-434); RDW 24.3 % (11.6-15.6); WHITE BLOOD COUNT 9.9 K/mm3 (4.0-10.0)
[2019-03-20 07:38] LABS: ALBUMIN 1.2 g/dl (3.4-5.0); BILIRUBIN,TOTAL 0.3 mg/dL (0.2-1); BLOOD UREA NITROGEN 10.1 mg/dL (7-18); CREATININE 0.5 mg/dL (0.55-1.3); POTASSIUM 3.2 mmol/L (3.5-5.1)
[2019-03-20 08:06] LABS: CALCIUM 6.7 mg/dL (8.5-10.1)
[2019-03-20 08:07] LABS: PHOSPHOROUS 0.7 mg/dL (2.5-4.9)
[2019-03-20] MEDS ORDERED: POTASSIUM PHOSPHATE 45 MM in DEXTROSE 5%-WATER - 500 ML IVPB ONE (08:24)
[2019-03-20] MEDS: ACETAMINOPHEN 650 MG/20.3 ML ORAL SOLUTION (CUPS) NGT PRN (09:15)
--- NOTE | 2019-03-20 09:55 | PN ---
Progress Note (short form) - Note Progress Note: PULMONARY/CRITICAL CARE PROGRESS NOTE: SUBJECTIVE Pt seen and examined in the ICU. Sedated and on mechanical ventilation, now on minimal settings. Post arrest TTE was essentially normal. Net negative fluid balance; Norepi at 3mcg OBJECTIVE Current Medications Acetaminophen (Tylenol Oral Solution -) 650 mg NGT Q4H PRN PRN Reason: FEVER Amino Acids (Prosource No Carb Liquid Pkt) 30 ml PO TIDCM [facility] Last Admin: 03/19/19 17:41 Dose: 30 ml Enoxaparin Sodium (Lovenox -) 110 mg SQ DAILY [facility] Last Admin: 03/19/19 10:16 Dose: 110 mg Furosemide (Lasix Injection -) 40 mg IVPUSH BID@0600,1400 [facility] Last Admin: 03/20/19 05:49 Dose: 40 mg Hydromorphone HCl (Dilaudid Vial -) 2 mg IM Q6H PRN PRN Reason: PAIN LEVEL 6-10 Last Admin: 03/20/19 04:46 Dose: 2 mg Metronidazole (Flagyl 500mg Premixed Ivpb -) 500 mg in 100 mls @ 100 mls/hr IVPB Q8H-IV [facility] Last Admin: 03/20/19 01:14 Dose: 100 mls/hr Meropenem 1 gm/ Dextrose 100 mls @ 200 mls/hr IVPB Q8H-IV [facility] Last Admin: 03/20/19 01:15 Dose: 200 mls/hr Linezolid (Zyvox 600 Mg Premix Bag (Restricted To Id) -) 600 mg in 300 mls @ 300 mls/hr IVPB Q12H [facility]; Protocol Last Admin: 03/20/19 00:02 Dose: 300 mls/hr Midazolam HCl 100 mg/ Sodium (Chloride) 100 mls @ 1 mls/hr IVPB TITR [facility]; Protocol Last Admin: 03/20/19 04:23 Dose: 5 mg/hr, 5 mls/hr Norepinephrine Bitartrate 8, (000 mcg/ Dextrose) 500 mls @ 18.75 mls/hr IV TITR [facility]; Protocol Last Titration: 03/20/19 00:00 Dose: 3 mcg/min, 11.25 mls/hr Potassium Phosphate 45 mm/ (Dextrose) 515 mls @ 85.833 mls/hr IVPB ONCE ONE Stop: 03/20/19 14:23 Fentanyl 500 mcg/ Dextrose 100 mls @ 10 mls/hr IVPB TITR [facility]; Protocol Insulin Human Regular 100 (units/ Sodium Chloride) 100 mls @ 6.61 mls/hr IVPB TITR [facility]; Protocol Ondansetron HCl (Zofran Injection) 4 mg IVPUSH Q6H PRN PRN Reason: NAUSEA AND/OR VOMITING Last Admin: 03/14/19 05:07 Dose: 4 mg Vancomycin HCl (Vancomycin Oral Solution) 125 mg PO Q6HPO [facility] Last Admin: 03/20/19 05:49 Dose: 125 mg Vital Signs Temp 100.2 F H 03/20/19 08:00 Pulse 107 H 03/20/19 08:30 Resp 27 H 03/20/19 08:30 BP 122/77 03/20/19 08:00 Pulse Ox 100 03/20/19 08:30 Intake & Output 03/19/19 03/20/19 03/20/19 18:59 06:59 18:59 Intake Total 1381 600.2 Output Total 700 1400 Balance 681 -799.8 Weight 66.179 kg Intake: IV 131 160.2 Levophed - 8,000 Mcg In 105.2 D5w - 492 ml @ 5 MCG/MIN 18.75 mls/hr IV TITR [facility] Rx#:[id number] Sublimaze Injection - 500 109 Mcg In D5w - 90 ml @ 50 MCG/HR 10 mls/hr IVPB TITR [facility] Rx#:[id number] Versed - 100 mg In Normal 22 55 Saline - 100 ml @ 1 MG/ HR 1 mls/hr IVPB TITR [facility] Rx#:[id number] IVPB 1100 400 Tube Irrigant 150 40 Output: Urine 700 1400 Lott 700 1400 Other: Voiding Method Indwelling Catheter Indwelling Catheter Bowel Movement No Yes # Bowel Movements 1 Body Mass Index (BMI) 29.0 Weight Measurement Method Built in [facility] EXAM: gen: sedated and intubated HEENT: pupils pinpoint, no JVD lungs: diminished bases heart: tachy, nl S1 S2 abd: soft, non-tender; midline laparotomy incision w/dry dressing ext: anasarca CBC, BMP 03/20/19 05:30 03/20/19 05:30 ASSESSMENT AND PLAN: CP arrest with ROSC Acute Hypoxic Respiratory Failure Perforated Small Bowel s/p ex-lap/RAYSHAWN/segmental SB resection Crohn's Disease Peritonitis +C diff Colitis Septic Shock IDDM h/o PE HTN DM Hyperlipidemia h/o CVA - ABX per ID - Hold Lasix today - although she is total body fluid overloaded, I suspect that she is now intravascularly dry - she has been aggressively diuresed and has high insensible loses from diarrhea and fever. - Needs IV Insulin now - she is developing DKA and subcutaneous Insulin is not effective in someone with anasarca and shock. - Aggressively replace e-lytes - Start tube feeds slowly - Will hold all sedation tomorrow and work towards potential extubation after metabolic derangement is addressed. - monitor urine output, creatinine - Pressors for MAP < 65 - AC due to PE/DVT history - Needs GI PPx with Protonix - Requires continued ICU monitoring Critical Care Time 45min Nikita Nieves Pulm/Critical Care [employer]
[2019-03-20] MEDS: INSULIN REGULAR 100 UNITS in SODIUM CHLORIDE 99 ML IVPB SCH (10:00)
--- NOTE | 2019-03-20 10:03 | PN ---
Physical Exam: SUBJECTIVE: Patient seen and examined in the icu. intubated for respiratory support OBJECTIVE: for 2 units of prbc today, will draw iron panel prior Patient is a 48 year old female with a past medical history of DKA. She is s/p post exploratory lap and resection of illial perforation 03/12. Post op course treated for bacteremia and C-Diff. AC was restarted post op (lovenox 110). She became pulseless on 03/19/19 at 0600 and CPR was initiated. She was given epi and intubated to protect airway. She was maintained on bipap previously. tele showed rapid afib and now nsr. She had a troponin elevation and her ekg w/o st elevations. she was evaluated by cardiology and remains in the ICU. Will speak to family regarding goals of care. She has a fiancee and a father that are her contacts. Unsure if she has a HCP. Palliative care consulted. Vital Signs Period Temp Pulse Resp BP Sys/Rapp Pulse Ox Last 24 Hr 98.9 F-101.0 F 94-111 15-35 83-122/52-77 100-100 GENERAL: intubated HEAD: Normal with no signs of trauma. EYES: PERRL, extraocular movements intact, sclera anicteric, conjunctiva clear. No ptosis. ENT: Ears normal, nares patent, oropharynx clear without exudates, moist mucous membranes. NECK: Trachea midline, full range of motion, supple. LUNGS: Breath sounds equal, clear to auscultation bilaterally, intubated HEART: Regular rate and rhythm ABDOMEN: surgical wound c/d/i. EXTREMITIES: anasacra NEUROLOGICAL: intubated Laboratory Results - last 24 hr 03/19/19 03/19/19 03/19/19 05:00 10:41 15:30 WBC RBC Hgb Hct MCV MCH MCHC RDW Plt Count MPV Absolute Neuts (auto) Total Counted Neutrophils % Neutrophils % (Manual) 81.6 Band Neutrophils % 0.0 Lymphocytes % Lymphocytes % (Manual) 10.2 Monocytes % Monocytes % (Manual) 2 L D Eosinophils % Eosinophils % (Manual) 2.1 Basophils % Basophils % (Manual) 0.0 Myelocytes % (Man) 0 Promyelocytes % (Man) 0 Blast Cells % (Manual) 0 Nucleated RBC % Metamyelocytes 3 H D Hypochromia 0 Platelet Estimate Decreased Polychromasia 1+ Poikilocytosis 2+ Anisocytosis 1+ Microcytosis 1+ Macrocytosis 0 Ovalocytes 1+ Schistocytes 1+ PT with INR INR PTT (Actin FS) Fibrinogen Anticoagulation Therapy Puncture Site ABG pH ABG pCO2 at Pt Temp ABG pO2 at Pt Temp ABG HCO3 ABG O2 Sat (Measured) ABG O2 Content ABG Base Excess Atul Test O2 Delivery Device Oxygen Flow Rate Vent Mode Vent Rate Mechanical Rate PEEP Pressure Support Vent Sodium Potassium Chloride Carbon Dioxide Anion Gap BUN Creatinine Est GFR (CKD-EPI)AfAm Est GFR (CKD-EPI)NonAf POC Glucometer 303 Random Glucose Lactic Acid 2.3 H* Calcium Phosphorus Magnesium Total Bilirubin AST ALT Alkaline Phosphatase Creatine Kinase Troponin I Total Protein Albumin Stool Occult Blood Blood Type Antibody Screen Antibody Identification Antigen Identification Crossmatch 03/19/19 03/19/19 03/19/19 15:40 15:40 17:26 WBC 11.7 H RBC 3.31 L Hgb 7.9 L Hct 25.2 L D MCV 76.1 L MCH 23.8 L MCHC 31.3 L RDW 24.4 H Plt Count 125 L D MPV 9.9 Absolute Neuts (auto) 10.7 H Total Counted 100 Neutrophils % 92.1 H Neutrophils % (Manual) 77.0 Band Neutrophils % 3.0 Lymphocytes % 5.8 L D Lymphocytes % (Manual) 14.0 D Monocytes % 2.0 L Monocytes % (Manual) 3 L Eosinophils % 0.0 D Eosinophils % (Manual) Basophils % 0.1 Basophils % (Manual) Myelocytes % (Man) 3 H D Promyelocytes % (Man) Blast Cells % (Manual) Nucleated RBC % 1 H Metamyelocytes Hypochromia 1+ Platelet Estimate Adequate Polychromasia Poikilocytosis Anisocytosis 3+ Microcytosis Macrocytosis Ovalocytes Schistocytes 1+ PT with INR INR PTT (Actin FS) Fibrinogen Anticoagulation Therapy Puncture Site ABG pH ABG pCO2 at Pt Temp ABG pO2 at Pt Temp ABG HCO3 ABG O2 Sat (Measured) ABG O2 Content ABG Base Excess Atul Test O2 Delivery Device Oxygen Flow Rate Vent Mode Vent Rate Mechanical Rate PEEP Pressure Support Vent Sodium 146 H Potassium 2.9 L* Chloride 107 Carbon Dioxide 29 Anion Gap 10 BUN 6.9 L Creatinine 0.7 Est GFR (CKD-EPI)AfAm 117.91 Est GFR (CKD-EPI)NonAf 101.74 POC Glucometer 315 Random Glucose 293 H Lactic Acid Calcium 6.9 L* Phosphorus Magnesium 1.8 Total Bilirubin 0.4 AST 49 H ALT 17 Alkaline Phosphatase 586 H Creatine Kinase 109 Troponin I 1.01 H* Total Protein 4.5 L Albumin 1.3 L Stool Occult Blood Blood Type Antibody Screen Antibody Identification Antigen Identification Crossmatch 03/19/19 03/19/19 03/19/19 21:35 21:35 21:45 WBC 8.1 RBC 2.86 L Hgb 6.9 L* Hct 21.4 L D MCV 75.0 L MCH 24.0 L MCHC 32.0 RDW 24.0 H Plt Count 92 L D MPV 9.7 Absolute Neuts (auto) 6.9 Total Counted 100 Neutrophils % 85.0 H Neutrophils % (Manual) 74.0 Band Neutrophils % 7.0 Lymphocytes % 12.1 D Lymphocytes % (Manual) 12.0 Monocytes % 2.7 L Monocytes % (Manual) 4 Eosinophils % 0.1 D Eosinophils % (Manual) Basophils % 0.1 Basophils % (Manual) Myelocytes % (Man) 1 D Promyelocytes % (Man) Blast Cells % (Manual) Nucleated RBC % 1 H Metamyelocytes 1 D Hypochromia 2+ Platelet Estimate Decreased Polychromasia 1+ Poikilocytosis Anisocytosis 2+ Microcytosis Macrocytosis Ovalocytes Schistocytes PT with INR INR PTT (Actin FS) Fibrinogen Anticoagulation Therapy No Result Required. Puncture Site Right radial ABG pH 7.48 H ABG pCO2 at Pt Temp 40.8 ABG pO2 at Pt Temp 264 H ABG HCO3 29.9 H ABG O2 Sat (Measured) 99.8 H ABG O2 Content 10.1 ABG Base Excess 6.2 H Atul Test Positive O2 Delivery Device Ventilater Oxygen Flow Rate 80% Vent Mode No Result Required. Vent Rate 14 Mechanical Rate No Result Required. PEEP 5.0 Pressure Support Vent 400 Sodium Potassium Chloride Carbon Dioxide Anion Gap BUN Creatinine Est GFR (CKD-EPI)AfAm Est GFR (CKD-EPI)NonAf POC Glucometer 192 Random Glucose Lactic Acid Calcium Phosphorus Magnesium Total Bilirubin AST ALT Alkaline Phosphatase Creatine Kinase Troponin I Total Protein Albumin Stool Occult Blood Blood Type Antibody Screen Antibody Identification Antigen Identification Crossmatch 03/19/19 03/19/19 03/19/19 23:15 23:15 23:15 WBC RBC Hgb Hct MCV MCH MCHC RDW Plt Count MPV Absolute Neuts (auto) Total Counted Neutrophils % Neutrophils % (Manual) Band Neutrophils % Lymphocytes % Lymphocytes % (Manual) Monocytes % Monocytes % (Manual) Eosinophils % Eosinophils % (Manual) Basophils % Basophils % (Manual) Myelocytes % (Man) Promyelocytes % (Man) Blast Cells % (Manual) Nucleated RBC % Metamyelocytes Hypochromia Platelet Estimate Polychromasia Poikilocytosis Anisocytosis Microcytosis Macrocytosis Ovalocytes Schistocytes PT with INR 17.70 H INR 1.49 H PTT (Actin FS) 36.3 Fibrinogen 359.0 Anticoagulation Therapy Puncture Site ABG pH ABG pCO2 at Pt Temp ABG pO2 at Pt Temp ABG HCO3 ABG O2 Sat (Measured) ABG O2 Content ABG Base Excess Atul Test O2 Delivery Device Oxygen Flow Rate Vent Mode Vent Rate Mechanical Rate PEEP Pressure Support Vent Sodium 146 H Potassium 3.1 L Chloride 108 H Carbon Dioxide 32 Anion Gap 6 L BUN 7.1 Creatinine 0.6 Est GFR (CKD-EPI)AfAm 124.05 Est GFR (CKD-EPI)NonAf 107.03 POC Glucometer Random Glucose 227 H Lactic Acid Calcium 6.4 L* Phosphorus Magnesium Total Bilirubin 0.4 AST 37 ALT 13 Alkaline Phosphatase 460 H Creatine Kinase Troponin I 1.94 H* Total Protein 4.0 L Albumin 1.2 L Stool Occult Blood Blood Type Antibody Screen Antibody Identification Antigen Identification Crossmatch 03/19/19 03/19/19 03/20/19 23:15 23:15 05:30 WBC RBC Hgb Hct MCV MCH MCHC RDW Plt Count MPV Absolute Neuts (auto) Total Counted Neutrophils % Neutrophils % (Manual) Band Neutrophils % Lymphocytes % Lymphocytes % (Manual) Monocytes % Monocytes % (Manual) Eosinophils % Eosinophils % (Manual) Basophils % Basophils % (Manual) Myelocytes % (Man) Promyelocytes % (Man) Blast Cells % (Manual) Nucleated RBC % Metamyelocytes Hypochromia Platelet Estimate Polychromasia Poikilocytosis Anisocytosis Microcytosis Macrocytosis Ovalocytes Schistocytes PT with INR INR PTT (Actin FS) 33.4 Fibrinogen Anticoagulation Therapy Puncture Site ABG pH ABG pCO2 at Pt Temp ABG pO2 at Pt Temp ABG HCO3 ABG O2 Sat (Measured) ABG O2 Content ABG Base Excess Atul Test O2 Delivery Device Oxygen Flow Rate Vent Mode Vent Rate Mechanical Rate PEEP Pressure Support Vent Sodium Potassium Chloride Carbon Dioxide Anion Gap BUN Creatinine Est GFR (CKD-EPI)AfAm Est GFR (CKD-EPI)NonAf POC Glucometer Random Glucose Lactic Acid Calcium Phosphorus Magnesium Total Bilirubin AST ALT Alkaline Phosphatase Creatine Kinase Troponin I Cancelled Total Protein Albumin Stool Occult Blood Blood Type A NEGATIVE Antibody Screen Negative Antibody Identification No Result Required. Antigen Identification No Result Required. Crossmatch See Detail 03/20/19 03/20/19 03/20/19 05:30 05:30 05:30 WBC 9.9 RBC 2.90 L Hgb 7.1 L Hct 21.8 L MCV 75.3 L MCH 24.5 L MCHC 32.5 RDW 24.3 H Plt Count 72 L D MPV 9.3 Absolute Neuts (auto) 8.4 H Total Counted Neutrophils % 84.5 H Neutrophils % (Manual) Band Neutrophils % Lymphocytes % 12.6 Lymphocytes % (Manual) Monocytes % 1.9 L Monocytes % (Manual) Eosinophils % 0.8 D Eosinophils % (Manual) Basophils % 0.2 Basophils % (Manual) Myelocytes % (Man) Promyelocytes % (Man) Blast Cells % (Manual) Nucleated RBC % 1 H Metamyelocytes Hypochromia Platelet Estimate Polychromasia Poikilocytosis Anisocytosis Microcytosis Macrocytosis Ovalocytes Schistocytes PT with INR INR PTT (Actin FS) Fibrinogen Anticoagulation Therapy Puncture Site ABG pH ABG pCO2 at Pt Temp ABG pO2 at Pt Temp ABG HCO3 ABG O2 Sat (Measured) ABG O2 Content ABG Base Excess Atul Test O2 Delivery Device Oxygen Flow Rate Vent Mode Vent Rate Mechanical Rate PEEP Pressure Support Vent Sodium 145 Potassium 3.2 L Chloride 106 Carbon Dioxide 27 Anion Gap 11 BUN 10.1 Creatinine 0.5 L Est GFR (CKD-EPI)AfAm 131.72 Est GFR (CKD-EPI)NonAf 113.65 POC Glucometer Random Glucose 366 H Lactic Acid Calcium 6.7 L* Phosphorus 0.7 L* Magnesium 2.0 Total Bilirubin 0.3 AST 29 ALT 12 L Alkaline Phosphatase 422 H Creatine Kinase Troponin I Total Protein 4.0 L Albumin 1.2 L Stool Occult Blood Positive Blood Type Antibody Screen Antibody Identification Antigen Identification Crossmatch 03/20/19 05:40 WBC RBC Hgb Hct MCV MCH MCHC RDW Plt Count MPV Absolute Neuts (auto) Total Counted Neutrophils % Neutrophils % (Manual) Band Neutrophils % Lymphocytes % Lymphocytes % (Manual) Monocytes % Monocytes % (Manual) Eosinophils % Eosinophils % (Manual) Basophils % Basophils % (Manual) Myelocytes % (Man) Promyelocytes % (Man) Blast Cells % (Manual) Nucleated RBC % Metamyelocytes Hypochromia Platelet Estimate Polychromasia Poikilocytosis Anisocytosis Microcytosis Macrocytosis Ovalocytes Schistocytes PT with INR INR PTT (Actin FS) Fibrinogen Anticoagulation Therapy Puncture Site ABG pH ABG pCO2 at Pt Temp ABG pO2 at Pt Temp ABG HCO3 ABG O2 Sat (Measured) ABG O2 Content ABG Base Excess Atul Test O2 Delivery Device Oxygen Flow Rate Vent Mode Vent Rate Mechanical Rate PEEP Pressure Support Vent Sodium Potassium Chloride Carbon Dioxide Anion Gap BUN Creatinine Est GFR (CKD-EPI)AfAm Est GFR (CKD-EPI)NonAf POC Glucometer 397 Random Glucose Lactic Acid Calcium Phosphorus Magnesium Total Bilirubin AST ALT Alkaline Phosphatase Creatine Kinase Troponin I Total Protein Albumin Stool Occult Blood Blood Type Antibody Screen Antibody Identification Antigen Identification Crossmatch Active Medications Generic Name Dose Route Start Last Admin Trade Name Freq PRN Reason Stop Dose Admin Acetaminophen 650 mg 03/20/19 09:17 Tylenol Oral Solution - NGT Q4H PRN FEVER Amino Acids 30 ml 03/19/19 08:00 03/19/19 17:41 Prosource No Carb Liquid Pkt PO 30 ml TIDCM [facility] Administration Enoxaparin Sodium 110 mg 03/17/19 13:00 03/19/19 10:16 Lovenox - SQ 110 mg DAILY [facility] Administration Hydromorphone HCl 2 mg 03/19/19 16:11 03/20/19 04:46 Dilaudid Vial - IM 2 mg Q6H PRN Administration PAIN LEVEL 6-10 Metronidazole 500 mg in 100 mls @ 100 mls/hr 03/15/19 13:00 03/20/19 01:14 Flagyl 500mg Premixed Ivpb - IVPB 100 mls/hr Q8H-IV [facility] Administration Meropenem 1 gm/ Dextrose 100 mls @ 200 mls/hr 03/15/19 13:15 03/20/19 01:15 IVPB 200 mls/hr Q8H-IV [facility] Administration Linezolid 600 mg in 300 mls @ 300 mls/hr 03/18/19 11:45 03/20/19 00:02 Zyvox 600 Mg Premix Bag (Restricted To Id) - IVPB 300 mls/hr Q12H [facility] Administration Protocol Midazolam HCl 100 mg/ Sodium 100 mls @ 1 mls/hr 03/19/19 13:45 03/20/19 04:23 Chloride IVPB 5 mg/hr TITR [facility] 5 mls/hr Administration Protocol 1 MG/HR Norepinephrine Bitartrate 8, 500 mls @ 18.75 mls/hr 03/19/19 21:15 03/20/19 00:00 000 mcg/ Dextrose IV 3 mcg/min TITR [facility] 11.25 mls/hr Titration Protocol 5 MCG/MIN Potassium Phosphate 45 mm/ 515 mls @ 85.833 mls/hr 03/20/19 08:24 Dextrose IVPB 03/20/19 14:23 ONCE ONE Fentanyl 500 mcg/ Dextrose 100 mls @ 10 mls/hr 03/20/19 09:30 IVPB TITR [facility] Protocol 50 MCG/HR Insulin Human Regular 100 100 mls @ 6.61 mls/hr 03/20/19 09:45 units/ Sodium Chloride IVPB TITR [facility] Protocol 0.1 UNITS/KG/HR Ondansetron HCl 4 mg 03/11/19 20:31 03/14/19 05:07 Zofran Injection IVPUSH 4 mg Q6H PRN Administration NAUSEA AND/OR VOMITING Pantoprazole Sodium 40 mg 03/20/19 10:00 Protonix Iv IVPUSH DAILY [facility] Vancomycin HCl 125 mg 03/15/19 18:00 03/20/19 05:49 Vancomycin Oral Solution PO 125 mg Q6HPO [facility] Administration ASSESSMENT/PLAN: Problem List - Problems (1) Acute respiratory failure Assessment/Plan: intubated s/p respiratory failure on 03/19/19 care per pulmonary on solumedrol Code(s): J96.00 - ACUTE RESPIRATORY FAILURE, UNSP W HYPOXIA OR HYPERCAPNIA (2) Perforated abdominal viscus Assessment/Plan: s/p Ex-lap/RAYSHAWN/partial SB and omental resection with anastomosis/washout on 03/12 on meropenem and flagyl per ID. Code(s): CLW4596 - (3) Abdominal pain Assessment/Plan: Patient is/p ex-lap/RAYSHAWN/partial SB and omental resection with anastomosis/ washout appreciate surgical and ID consultation on meropenem and flagyl NPO,intubated wound care as per surgery Code(s): R10.9 - UNSPECIFIED ABDOMINAL PAIN Qualifiers: Abdominal location: generalized Qualified Code(s): R10.84 - Generalized abdominal pain (4) C. difficile diarrhea Assessment/Plan: + for c diff toxin and antigen ID following monitor output has rectal tube in place Code(s): A04.72 - ENTEROCOLITIS D/T CLOSTRIDIUM DIFFICILE, NOT SPCF RECUR (5) Diabetes Assessment/Plan: monitor bgms q4 Code(s): E11.9 - TYPE 2 DIABETES MELLITUS WITHOUT COMPLICATIONS (6) ESBL (extended spectrum beta-lactamase) producing bacteria infection Assessment/Plan: esbl in wound culture. continue IV antibiotics per ID maintain contact precautions. Code(s): A49.9 - BACTERIAL INFECTION, UNSPECIFIED; Z16.12 - EXTENDED SPECTRUM BETA LACTAMASE (ESBL) RESISTANCE (7) HTN (hypertension) Assessment/Plan: BP improving. ICU monitoring with frequent checks on pressors for support. Code(s): I10 - ESSENTIAL (PRIMARY) HYPERTENSION (8) Left-sided weakness Assessment/Plan: PT once more stable Code(s): R53.1 - WEAKNESS (9) Acute Crohn's disease Assessment/Plan: lysis of adhesions, segmental resection of small intestinal perforation with side-side stapled anastomosis, abdominal washout, resection of portion of omentum. advance diet as per surgery. on meropenem, flagyl. GI following. Code(s): K50.90 - CROHN'S DISEASE, UNSPECIFIED, WITHOUT COMPLICATIONS (10) Anemia Assessment/Plan: iron panel prior to 2 units of prbc. hmg/hmt trending down Code(s): D64.9 - ANEMIA, UNSPECIFIED (11) Respiratory failure Code(s): J96.90 - RESPIRATORY FAILURE, UNSP, UNSP W HYPOXIA OR HYPERCAPNIA (12) Prophylactic measure Assessment/Plan: NPO monitor electrolytes IVF DVT on lovenox 110 Dispo requires ICU care full code Code(s): Z29.9 - ENCOUNTER FOR PROPHYLACTIC MEASURES, UNSPECIFIED Visit type - Emergency Visit Emergency Visit: Yes ED Registration Date: 03/09/19 Care time: The patient presented to the Emergency Department on the above date and was hospitalized for further evaluation of their emergent condition. - New Patient This patient is new to me today: No - Critical Care Critical Care patient: Yes Total Critical Care Time (in minutes): 45 Critical Care Statement: The care of this patient involved high complexity decision making to prevent further life threatening deterioration of the patient 's condition and/or to evaluate & treat vital organ system(s) failure or risk of failure.
[2019-03-20] MEDS: AMINO ACIDS/PROTEIN HYDROLYS 30 ML LIQUID.PKT PO SCH ×3 (10:17→17:16)
[2019-03-20] MEDS ORDERED: fentaNYL CITRATE 250 MCG/5 ML VIAL ONE ×2 (10:23→21:15)
[2019-03-20] MEDS: ENOXAPARIN NA (PORCINE) 60 MG/0.6 ML DISP.SYRIN SQ SCH (10:24)
[2019-03-20] MEDS: PANTOPRAZOLE SODIUM 40 MG VIAL IVPUSH SCH (10:25)
[2019-03-20] MEDS: FENTANYL INJECTION 500 MCG in DEXTROSE 5%-WATER - 90 ML IVPB SCH ×2 (10:25→21:32)
[2019-03-20 11:47] LABS: ANISOCYTOSIS 3+; MACROCYTOSIS 0; OVALOCYTE 1+; PLATELET ESTIMATE DECREASED
--- NOTE | 2019-03-20 13:01 | PN ---
Progress Note, Physician - Current Medication List Current Medications: Active Medications Acetaminophen (Tylenol Oral Solution -) 650 mg NGT Q4H PRN PRN Reason: FEVER Last Admin: 03/20/19 09:15 Dose: 650 mg Amino Acids (Prosource No Carb Liquid Pkt) 30 ml PO TIDCM [facility] Last Admin: 03/20/19 11:47 Dose: 30 ml Enoxaparin Sodium (Lovenox -) 110 mg SQ DAILY [facility] Last Admin: 03/20/19 10:24 Dose: 110 mg Hydromorphone HCl (Dilaudid Vial -) 2 mg IM Q6H PRN PRN Reason: PAIN LEVEL 6-10 Last Admin: 03/20/19 10:20 Dose: 2 mg Metronidazole (Flagyl 500mg Premixed Ivpb -) 500 mg in 100 mls @ 100 mls/hr IVPB Q8H-IV [facility] Last Admin: 03/20/19 10:17 Dose: 100 mls/hr Meropenem 1 gm/ Dextrose 100 mls @ 200 mls/hr IVPB Q8H-IV [facility] Last Admin: 03/20/19 10:17 Dose: 200 mls/hr Linezolid (Zyvox 600 Mg Premix Bag (Restricted To Id) -) 600 mg in 300 mls @ 300 mls/hr IVPB Q12H [facility]; Protocol Last Admin: 03/20/19 11:41 Dose: 300 mls/hr Midazolam HCl 100 mg/ Sodium (Chloride) 100 mls @ 1 mls/hr IVPB TITR [facility]; Protocol Last Admin: 03/20/19 04:23 Dose: 5 mg/hr, 5 mls/hr Norepinephrine Bitartrate 8, (000 mcg/ Dextrose) 500 mls @ 18.75 mls/hr IV TITR [facility]; Protocol Last Titration: 03/20/19 00:00 Dose: 3 mcg/min, 11.25 mls/hr Potassium Phosphate 45 mm/ (Dextrose) 515 mls @ 85.833 mls/hr IVPB ONCE ONE Stop: 03/20/19 14:23 Last Admin: 03/20/19 10:17 Dose: 85.833 mls/hr Fentanyl 500 mcg/ Dextrose 100 mls @ 10 mls/hr IVPB TITR [facility]; Protocol Last Admin: 03/20/19 10:25 Dose: 50 mcg/hr, 10 mls/hr Insulin Human Regular 100 (units/ Sodium Chloride) 100 mls @ 6.61 mls/hr IVPB TITR [facility]; Protocol Last Admin: 03/20/19 10:00 Dose: 0.1 units/kg/hr, 6.61 mls/hr Ondansetron HCl (Zofran Injection) 4 mg IVPUSH Q6H PRN PRN Reason: NAUSEA AND/OR VOMITING Last Admin: 03/14/19 05:07 Dose: 4 mg Pantoprazole Sodium (Protonix Iv) 40 mg IVPUSH DAILY [facility] Last Admin: 03/20/19 10:25 Dose: 40 mg Vancomycin HCl (Vancomycin Oral Solution) 125 mg PO Q6HPO [facility] Last Admin: 03/20/19 11:47 Dose: 125 mg - Objective Vital Signs: Vital Signs Temperature 100 F H 03/20/19 12:00 Pulse Rate 100 H 03/20/19 12:00 Respiratory Rate 21 H 03/20/19 12:00 Blood Pressure 102/57 L 03/20/19 12:00 O2 Sat by Pulse Oximetry (%) 100 03/20/19 11:57 Labs: CBC, BMP 03/20/19 05:30 03/20/19 05:30 INR, PTT INR 1.49 (0.83-1.09) H 03/19/19 23:15 Fibrinogen 359.0 mg/dL (238-498) 03/19/19 23:15
[2019-03-20 18:33] LABS: BLOOD UREA NITROGEN 10.5 mg/dL (7-18); CREATININE 0.4 mg/dL (0.55-1.3); MAGNESIUM 1.7 mg/dL (1.8-2.4); PHOSPHOROUS 2.4 mg/dL (2.5-4.9); POTASSIUM 3.5 mmol/L (3.5-5.1)
[2019-03-20 18:38] LABS: CALCIUM 6.4 mg/dL (8.5-10.1)
[2019-03-20] MEDS ORDERED: CALCIUM GLUCONATE 10% - 1,000 MG/10 ML VIAL IVPB ONE (18:46)
[2019-03-20] MEDS ORDERED: MAGNESIUM SULF 50% (8.12 MEQ/2 ML-1 GM VIAL) IVPB ONE (18:47)
[2019-03-20] MEDS ORDERED: POTASSIUM CHLORIDE 20 MEQ PREMIX IVPB 100 ML IVPB ONE (18:48)
[2019-03-20] MEDS: NOREPINEPHRINE BITARTRATE 8,000 MCG in DEXTROSE 5%-WATER - 492 ML IV SCH (21:55)
[2019-03-21] MEDS: HYDROmorphone HCl 2 MG/ML VIAL IM PRN (00:04)
[2019-03-21] MEDS: VANCOMYCIN 250 MG/5 ML ORAL SOLUTION PO SCH ×4 (00:09→18:03)
[2019-03-21] MEDS ORDERED: MIDAZOLAM IN 0.9 % SOD.CHLORID 1 MG/1 ML PLAST..BAG ONE (01:27)
[2019-03-21] MEDS ORDERED: DEXTROSE 5%-WATER 100 ML IVPB ONE ×3 (01:28→18:32)
[2019-03-21] MEDS ORDERED: MEROPENEM 1 GM VIAL (RESTRICTED TO ID) IVPB ONE ×3 (01:28→18:32)
[2019-03-21] MEDS: MIDAZOLAM 100 MG in SODIUM CHLORIDE 100 ML IVPB SCH (01:32)
[2019-03-21] MEDS: MEROPENEM 1 GM in DEXTROSE 5%-WATER 100 ML IVPB SCH ×2 (01:33→18:35)
[2019-03-21] MEDS: ACETAMINOPHEN 650 MG/20.3 ML ORAL SOLUTION (CUPS) NGT PRN ×2 (02:04→16:41)
[2019-03-21 06:09] LABS: BASO % 0.3 % (0-2.0); EOS % 2.4 % (0-4.5); HEMATOCRIT 29.9 % (32.4-45.2); HEMOGLOBIN 9.9 GM/dL (10.7-15.3); LYMPH % 15.9 % (8-40); MCH 25.6 pg (25.7-33.7); MEAN CELL VOLUME 77.7 fl (80-96); MEAN PLT VOLUME 9.6 fl (7.5-11.1); MONO % 2.1 % (3.8-10.2); NEUT % 79.3 % (42.8-82.8); PLATELET COUNT 87 K/MM3 (134-434); RBC 3.85 M/mm3 (3.60-5.2); RDW 21.8 % (11.6-15.6)
[2019-03-21 06:39] LABS: ARTERIAL BLD GAS O2 SATURATION 98.8 % (95-98); ARTERIAL BLOOD GAS PCO2 44.1 mmHg (35-45); ARTERIAL BLOOD GAS PO2 134 mmHg (80-100); ARTERIAL BLOOD GAS pH 7.46 (7.35-7.45)
[2019-03-21 06:40] LABS: ALLENS TEST POSITIVE; ARTERIAL BLOOD GAS BASE EXCESS 6.3 meq/l (-2-2)
[2019-03-21 06:42] LABS: ALBUMIN 1.2 g/dl (3.4-5.0); BILIRUBIN,TOTAL 0.5 mg/dL (0.2-1); BLOOD UREA NITROGEN 14.5 mg/dL (7-18); CREATININE 0.5 mg/dL (0.55-1.3); MAGNESIUM 1.6 mg/dL (1.8-2.4); TOT PROT 4.2 g/dl (6.4-8.2)
[2019-03-21] MEDS ORDERED: fentaNYL CITRATE 250 MCG/5 ML VIAL ONE ×3 (06:55→21:15)
[2019-03-21] MEDS ORDERED: MAGNESIUM SULF 50% (8.12 MEQ/2 ML-1 GM VIAL) IVPB ONE (06:57)
[2019-03-21] MEDS: FENTANYL INJECTION 500 MCG in DEXTROSE 5%-WATER - 90 ML IVPB SCH ×4 (07:00→21:26)
[2019-03-21 07:03] LABS: POTASSIUM 2.9 mmol/L (3.5-5.1)
[2019-03-21 07:04] LABS: CALCIUM 6.6 mg/dL (8.5-10.1)
[2019-03-21] MEDS ORDERED: CALCIUM GLUCONATE 10% - 1,000 MG/10 ML VIAL IVPB ONE (07:06)
--- NOTE | 2019-03-21 07:31 | PN ---
Progress Note (short form) - Note Progress Note: PULMONARY/CRITICAL CARE PROGRESS NOTE: SUBJECTIVE Pt seen and examined in the ICU. Sedated and on mechanical ventilation. Pressors increasing, lactate elevated, worsening leukocytosis OBJECTIVE Current Medications Acetaminophen (Tylenol Oral Solution -) 650 mg NGT Q4H PRN PRN Reason: FEVER Last Admin: 03/21/19 02:04 Dose: 650 mg Amino Acids (Prosource No Carb Liquid Pkt) 30 ml PO TIDCM [facility] Last Admin: 03/20/19 17:16 Dose: 30 ml Enoxaparin Sodium (Lovenox -) 110 mg SQ DAILY [facility] Last Admin: 03/20/19 10:24 Dose: 110 mg Linezolid (Zyvox 600 Mg Premix Bag (Restricted To Id) -) 600 mg in 300 mls @ 300 mls/hr IVPB Q12H [facility]; Protocol Last Admin: 03/20/19 22:58 Dose: 300 mls/hr Norepinephrine Bitartrate 8, (000 mcg/ Dextrose) 500 mls @ 18.75 mls/hr IV TITR [facility]; Protocol Last Titration: 03/21/19 02:01 Dose: 5 mcg/min, 18.75 mls/hr Fentanyl 500 mcg/ Dextrose 100 mls @ 10 mls/hr IVPB TITR [facility]; Protocol Last Admin: 03/21/19 07:00 Dose: 50 mcg/hr, 10 mls/hr Insulin Human Regular 100 (units/ Sodium Chloride) 100 mls @ 6.61 mls/hr IVPB TITR [facility]; Protocol Last Titration: 03/21/19 02:48 Dose: 0.03 units/kg/hr, 2 mls/hr Ondansetron HCl (Zofran Injection) 4 mg IVPUSH Q6H PRN PRN Reason: NAUSEA AND/OR VOMITING Last Admin: 03/14/19 05:07 Dose: 4 mg Pantoprazole Sodium (Protonix Iv) 40 mg IVPUSH DAILY [facility] Last Admin: 03/20/19 10:25 Dose: 40 mg Potassium Chloride (Potassium Chloride 20 Meq Premix Ivpb -) 20 meq IVPB Q2H [facility] Stop: 03/21/19 11:16 Vancomycin HCl (Vancomycin Oral Solution) 125 mg PO Q6HPO [facility] Last Admin: 03/21/19 06:32 Dose: 125 mg Vital Signs Temp 99.6 F 03/21/19 06:00 Pulse 99 H 03/21/19 06:00 Resp 24 H 03/21/19 06:00 BP 94/60 03/21/19 06:00 Pulse Ox 100 03/20/19 18:37 Intake & Output 03/20/19 03/21/19 03/21/19 18:59 06:59 18:59 Intake Total 2653.6 1212 Output Total 1700 800 Balance 953.6 412 Weight 66.633 kg Intake: IV 293.6 382 Levophed - 8,000 Mcg In 135.6 169 D5w - 492 ml @ 5 MCG/MIN 18.75 mls/hr IV TITR [facility] Rx#:[id number] NOVOLIN R VIAL *For 18 48 IVPUSH or IV DRIP Only* 100 UNITS In Normal Saline - 99 ml @ 0.1 UNITS/KG/HR 6.61 mls/hr IVPB TITR [facility] Rx#: [id number] Sublimaze Injection - 500 80 110 Mcg In D5w - 90 ml @ 50 MCG/HR 10 mls/hr IVPB TITR [facility] Rx#:[id number] Versed - 100 mg In Normal 60 55 Saline - 100 ml @ 1 MG/ HR 1 mls/hr IVPB TITR [facility] Rx#:[id number] IVPB 1300 500 Tube Feeding 220 Packed Cells 700 Tube Irrigant 360 110 Output: Urine 1700 800 Lott 1700 800 Other: Voiding Method Indwelling Catheter Indwelling Catheter Bowel Movement Yes Weight Measurement Method Built in [facility] EXAM: gen: sedated and intubated HEENT: pupils reactive, L sclera edema, no JVD lungs: diminished bases heart: tachy, nl S1 S2 abd: soft, non-tender; midline laparotomy incision w/dry dressing ext: anasarca CBC, BMP 03/21/19 05:30 03/21/19 05:30 ASSESSMENT AND PLAN: CP arrest with ROSC Acute Hypoxic Respiratory Failure Perforated Small Bowel s/p ex-lap/RAYSHAWN/segmental SB resection Crohn's Disease Peritonitis +C diff Colitis Septic Shock IDDM h/o PE HTN DM Hyperlipidemia h/o CVA - ABX per ID -Will change central line today as potential source - Hold Lasix - Needs IV Insulin - subcutaneous Insulin is not effective in someone with anasarca and shock. - Aggressively replace e-lytes - Start tube feeds slowly - Will hold all sedation to assess mental status - monitor urine output, creatinine - Pressors for MAP > 65 - AC due to PE/DVT history - Needs GI PPx with Protonix - Requires continued ICU monitoring Critical Care Time 45min Nikita Nieves Pulm/Critical Care DRY CURER
[2019-03-21] MEDS: AMINO ACIDS/PROTEIN HYDROLYS 30 ML LIQUID.PKT PO SCH ×3 (08:26→18:03)
[2019-03-21] MEDS ORDERED: PT OWN MED DRAWER 7, Y5N ONE ×3 (09:34→21:15)
[2019-03-21] MEDS: PANTOPRAZOLE SODIUM 40 MG VIAL IVPUSH SCH (09:51)
[2019-03-21] MEDS: ENOXAPARIN NA (PORCINE) 60 MG/0.6 ML DISP.SYRIN SQ SCH (09:51)
[2019-03-21] MEDS: POTASSIUM CHLORIDE 20 MEQ PREMIX IVPB 100 ML IVPB SCH ×4 (10:00→21:42)
[2019-03-21] MEDS ORDERED: MEROPENEM 1 GM in DEXTROSE 5%-WATER 100 ML IVPB ONE (10:15)
[2019-03-21 10:36] LABS: ANISOCYTOSIS 1+; MACROCYTOSIS 0; OVALOCYTE 1+; PLATELET ESTIMATE DECREASED; TARGET CELLS 2+
--- NOTE | 2019-03-21 11:15 | PN ---
Physical Exam: SUBJECTIVE: Patient seen and examined at the bedside. remains intubated. OBJECTIVE: s/p 2 units of prbc yesterday with stable cbc Patient is a 48 year old female with a past medical history of DKA. She is s/p post exploratory lap and resection of illial perforation 03/12. Post op course treated for bacteremia and C-Diff. AC was restarted post op (lovenox 110). She became pulseless on 03/19/19 at 0600 and CPR was initiated. She was given epi and intubated to protect airway. tele showed rapid afib and now nsr. She had a troponin elevation and her ekg w/o st elevations. she was evaluated by cardiology and remains intubated in the ICU. Vital Signs Period Temp Pulse Resp BP Sys/Rapp Pulse Ox Last 24 Hr 99.2 F-100.9 F 90-104 20-30 90-116/51-70 100-100 GENERAL: intubated, anasarca HEAD: Normal with no signs of trauma. EYES: PERRL, extraocular movements intact, sclera anicteric, conjunctiva clear. No ptosis. ENT: Ears normal, nares patent, oropharynx clear without exudates, moist mucous membranes. NECK: Trachea midline, full range of motion, supple. LUNGS: Breath sounds equal, clear to auscultation bilaterally, intubated HEART: Regular rate and rhythm ABDOMEN: surgical wound c/d/i. EXTREMITIES: anasacra NEUROLOGICAL: intubated Laboratory Results - last 24 hr 03/19/19 03/20/19 03/20/19 23:15 05:30 10:59 WBC RBC Hgb Hct MCV MCH MCHC RDW Plt Count MPV Absolute Neuts (auto) Neutrophils % Neutrophils % (Manual) 81.0 Band Neutrophils % 1.0 Lymphocytes % Lymphocytes % (Manual) 11.0 Monocytes % Monocytes % (Manual) 2 L Eosinophils % Eosinophils % (Manual) 0.0 D Basophils % Basophils % (Manual) 0.0 Myelocytes % (Man) 2 D Promyelocytes % (Man) 0 Blast Cells % (Manual) 0 Nucleated RBC % Metamyelocytes 3 H D Hypochromia 2+ Platelet Estimate Decreased Polychromasia 3+ Poikilocytosis 1+ Anisocytosis 3+ Microcytosis 3+ Macrocytosis 0 Target Cells Ovalocytes 1+ Anticoagulation Therapy Puncture Site ABG pH ABG pCO2 at Pt Temp ABG pO2 at Pt Temp ABG HCO3 ABG O2 Sat (Measured) ABG O2 Content ABG Base Excess Atul Test O2 Delivery Device Oxygen Flow Rate Vent Mode Vent Rate Mechanical Rate PEEP Pressure Support Vent Sodium Potassium Chloride Carbon Dioxide Anion Gap BUN Creatinine Est GFR (CKD-EPI)AfAm Est GFR (CKD-EPI)NonAf POC Glucometer 196 Random Glucose Lactic Acid Calcium Phosphorus Magnesium Iron TIBC Iron Saturation Unsaturated IBC Ferritin Total Bilirubin AST ALT Alkaline Phosphatase Total Protein Albumin Blood Type A NEGATIVE Antibody Screen Negative Crossmatch See Detail 03/20/19 03/20/19 03/20/19 12:24 13:14 14:08 WBC RBC Hgb Hct MCV MCH MCHC RDW Plt Count MPV Absolute Neuts (auto) Neutrophils % Neutrophils % (Manual) Band Neutrophils % Lymphocytes % Lymphocytes % (Manual) Monocytes % Monocytes % (Manual) Eosinophils % Eosinophils % (Manual) Basophils % Basophils % (Manual) Myelocytes % (Man) Promyelocytes % (Man) Blast Cells % (Manual) Nucleated RBC % Metamyelocytes Hypochromia Platelet Estimate Polychromasia Poikilocytosis Anisocytosis Microcytosis Macrocytosis Target Cells Ovalocytes Anticoagulation Therapy Puncture Site ABG pH ABG pCO2 at Pt Temp ABG pO2 at Pt Temp ABG HCO3 ABG O2 Sat (Measured) ABG O2 Content ABG Base Excess Atul Test O2 Delivery Device Oxygen Flow Rate Vent Mode Vent Rate Mechanical Rate PEEP Pressure Support Vent Sodium Potassium Chloride Carbon Dioxide Anion Gap BUN Creatinine Est GFR (CKD-EPI)AfAm Est GFR (CKD-EPI)NonAf POC Glucometer 158 139 134 Random Glucose Lactic Acid Calcium Phosphorus Magnesium Iron TIBC Iron Saturation Unsaturated IBC Ferritin Total Bilirubin AST ALT Alkaline Phosphatase Total Protein Albumin Blood Type Antibody Screen Crossmatch 03/20/19 03/20/19 03/20/19 17:00 17:32 19:44 WBC RBC Hgb Hct MCV MCH MCHC RDW Plt Count MPV Absolute Neuts (auto) Neutrophils % Neutrophils % (Manual) Band Neutrophils % Lymphocytes % Lymphocytes % (Manual) Monocytes % Monocytes % (Manual) Eosinophils % Eosinophils % (Manual) Basophils % Basophils % (Manual) Myelocytes % (Man) Promyelocytes % (Man) Blast Cells % (Manual) Nucleated RBC % Metamyelocytes Hypochromia Platelet Estimate Polychromasia Poikilocytosis Anisocytosis Microcytosis Macrocytosis Target Cells Ovalocytes Anticoagulation Therapy Puncture Site ABG pH ABG pCO2 at Pt Temp ABG pO2 at Pt Temp ABG HCO3 ABG O2 Sat (Measured) ABG O2 Content ABG Base Excess Atul Test O2 Delivery Device Oxygen Flow Rate Vent Mode Vent Rate Mechanical Rate PEEP Pressure Support Vent Sodium 143 Potassium 3.5 Chloride 104 Carbon Dioxide 29 Anion Gap 10 BUN 10.5 Creatinine 0.4 L Est GFR (CKD-EPI)AfAm 141.75 Est GFR (CKD-EPI)NonAf 122.30 POC Glucometer 229 239 Random Glucose 315 H Lactic Acid Calcium 6.4 L* Phosphorus 2.4 L Magnesium 1.7 L Iron 125 TIBC 124 L Iron Saturation 100 H Unsaturated IBC -1 L Ferritin 220.2 Total Bilirubin AST ALT Alkaline Phosphatase Total Protein Albumin Blood Type Antibody Screen Crossmatch 03/20/19 03/20/19 03/21/19 21:48 23:26 00:36 WBC RBC Hgb Hct MCV MCH MCHC RDW Plt Count MPV Absolute Neuts (auto) Neutrophils % Neutrophils % (Manual) Band Neutrophils % Lymphocytes % Lymphocytes % (Manual) Monocytes % Monocytes % (Manual) Eosinophils % Eosinophils % (Manual) Basophils % Basophils % (Manual) Myelocytes % (Man) Promyelocytes % (Man) Blast Cells % (Manual) Nucleated RBC % Metamyelocytes Hypochromia Platelet Estimate Polychromasia Poikilocytosis Anisocytosis Microcytosis Macrocytosis Target Cells Ovalocytes Anticoagulation Therapy Puncture Site ABG pH ABG pCO2 at Pt Temp ABG pO2 at Pt Temp ABG HCO3 ABG O2 Sat (Measured) ABG O2 Content ABG Base Excess Atul Test O2 Delivery Device Oxygen Flow Rate Vent Mode Vent Rate Mechanical Rate PEEP Pressure Support Vent Sodium Potassium Chloride Carbon Dioxide Anion Gap BUN Creatinine Est GFR (CKD-EPI)AfAm Est GFR (CKD-EPI)NonAf POC Glucometer 114 88 150 Random Glucose Lactic Acid Calcium Phosphorus Magnesium Iron TIBC Iron Saturation Unsaturated IBC Ferritin Total Bilirubin AST ALT Alkaline Phosphatase Total Protein Albumin Blood Type Antibody Screen Crossmatch 03/21/19 03/21/19 03/21/19 01:42 02:46 04:55 WBC RBC Hgb Hct MCV MCH MCHC RDW Plt Count MPV Absolute Neuts (auto) Neutrophils % Neutrophils % (Manual) Band Neutrophils % Lymphocytes % Lymphocytes % (Manual) Monocytes % Monocytes % (Manual) Eosinophils % Eosinophils % (Manual) Basophils % Basophils % (Manual) Myelocytes % (Man) Promyelocytes % (Man) Blast Cells % (Manual) Nucleated RBC % Metamyelocytes Hypochromia Platelet Estimate Polychromasia Poikilocytosis Anisocytosis Microcytosis Macrocytosis Target Cells Ovalocytes Anticoagulation Therapy Puncture Site ABG pH ABG pCO2 at Pt Temp ABG pO2 at Pt Temp ABG HCO3 ABG O2 Sat (Measured) ABG O2 Content ABG Base Excess Atul Test O2 Delivery Device Oxygen Flow Rate Vent Mode Vent Rate Mechanical Rate PEEP Pressure Support Vent Sodium Potassium Chloride Carbon Dioxide Anion Gap BUN Creatinine Est GFR (CKD-EPI)AfAm Est GFR (CKD-EPI)NonAf POC Glucometer 186 265 225 Random Glucose Lactic Acid Calcium Phosphorus Magnesium Iron TIBC Iron Saturation Unsaturated IBC Ferritin Total Bilirubin AST ALT Alkaline Phosphatase Total Protein Albumin Blood Type Antibody Screen Crossmatch 03/21/19 03/21/19 03/21/19 05:30 05:30 05:30 WBC 12.0 H RBC 3.85 Hgb 9.9 L Hct 29.9 L D MCV 77.7 L MCH 25.6 L MCHC 33.0 RDW 21.8 H Plt Count 87 L D MPV 9.6 Absolute Neuts (auto) 9.6 H Neutrophils % 79.3 Neutrophils % (Manual) 72.7 Band Neutrophils % 1.0 Lymphocytes % 15.9 D Lymphocytes % (Manual) 19.2 D Monocytes % 2.1 L Monocytes % (Manual) 3 L Eosinophils % 2.4 D Eosinophils % (Manual) 3.1 D Basophils % 0.3 Basophils % (Manual) 0.0 Myelocytes % (Man) 0 D Promyelocytes % (Man) 0 Blast Cells % (Manual) 0 Nucleated RBC % 0 Metamyelocytes 1 D Hypochromia 0 Platelet Estimate Decreased Polychromasia 1+ Poikilocytosis 0 Anisocytosis 1+ Microcytosis 1+ Macrocytosis 0 Target Cells 2+ Ovalocytes 1+ Anticoagulation Therapy Puncture Site ABG pH ABG pCO2 at Pt Temp ABG pO2 at Pt Temp ABG HCO3 ABG O2 Sat (Measured) ABG O2 Content ABG Base Excess Atul Test O2 Delivery Device Oxygen Flow Rate Vent Mode Vent Rate Mechanical Rate PEEP Pressure Support Vent Sodium 142 Potassium 2.9 L* Chloride 103 Carbon Dioxide 31 Anion Gap 8 BUN 14.5 Creatinine 0.5 L Est GFR (CKD-EPI)AfAm 131.72 Est GFR (CKD-EPI)NonAf 113.65 POC Glucometer Random Glucose 242 H Lactic Acid 3.4 H* Calcium 6.6 L* Phosphorus Magnesium 1.6 L Iron TIBC Iron Saturation Unsaturated IBC Ferritin Total Bilirubin 0.5 AST 22 ALT 10 L Alkaline Phosphatase 332 H Total Protein 4.2 L Albumin 1.2 L Blood Type Antibody Screen Crossmatch 03/21/19 03/21/19 03/21/19 06:00 06:21 07:06 WBC RBC Hgb Hct MCV MCH MCHC RDW Plt Count MPV Absolute Neuts (auto) Neutrophils % Neutrophils % (Manual) Band Neutrophils % Lymphocytes % Lymphocytes % (Manual) Monocytes % Monocytes % (Manual) Eosinophils % Eosinophils % (Manual) Basophils % Basophils % (Manual) Myelocytes % (Man) Promyelocytes % (Man) Blast Cells % (Manual) Nucleated RBC % Metamyelocytes Hypochromia Platelet Estimate Polychromasia Poikilocytosis Anisocytosis Microcytosis Macrocytosis Target Cells Ovalocytes Anticoagulation Therapy No Result Required. Puncture Site Left radial ABG pH 7.46 H ABG pCO2 at Pt Temp 44.1 ABG pO2 at Pt Temp 134 H ABG HCO3 30.6 H ABG O2 Sat (Measured) 98.8 H ABG O2 Content 17.0 ABG Base Excess 6.3 H Atul Test Positive O2 Delivery Device Vent Oxygen Flow Rate 40% Vent Mode A/c Vent Rate 14 Mechanical Rate No Result Required. PEEP 5.0 Pressure Support Vent 400 Sodium Potassium Chloride Carbon Dioxide Anion Gap BUN Creatinine Est GFR (CKD-EPI)AfAm Est GFR (CKD-EPI)NonAf POC Glucometer 173 128 Random Glucose Lactic Acid Calcium Phosphorus Magnesium Iron TIBC Iron Saturation Unsaturated IBC Ferritin Total Bilirubin AST ALT Alkaline Phosphatase Total Protein Albumin Blood Type Antibody Screen Crossmatch 03/21/19 03/21/19 08:46 10:28 WBC RBC Hgb Hct MCV MCH MCHC RDW Plt Count MPV Absolute Neuts (auto) Neutrophils % Neutrophils % (Manual) Band Neutrophils % Lymphocytes % Lymphocytes % (Manual) Monocytes % Monocytes % (Manual) Eosinophils % Eosinophils % (Manual) Basophils % Basophils % (Manual) Myelocytes % (Man) Promyelocytes % (Man) Blast Cells % (Manual) Nucleated RBC % Metamyelocytes Hypochromia Platelet Estimate Polychromasia Poikilocytosis Anisocytosis Microcytosis Macrocytosis Target Cells Ovalocytes Anticoagulation Therapy Puncture Site ABG pH ABG pCO2 at Pt Temp ABG pO2 at Pt Temp ABG HCO3 ABG O2 Sat (Measured) ABG O2 Content ABG Base Excess Atul Test O2 Delivery Device Oxygen Flow Rate Vent Mode Vent Rate Mechanical Rate PEEP Pressure Support Vent Sodium Potassium Chloride Carbon Dioxide Anion Gap BUN Creatinine Est GFR (CKD-EPI)AfAm Est GFR (CKD-EPI)NonAf POC Glucometer 97 179 Random Glucose Lactic Acid Calcium Phosphorus Magnesium Iron TIBC Iron Saturation Unsaturated IBC Ferritin Total Bilirubin AST ALT Alkaline Phosphatase Total Protein Albumin Blood Type Antibody Screen Crossmatch Active Medications Generic Name Dose Route Start Last Admin Trade Name Freq PRN Reason Stop Dose Admin Acetaminophen 650 mg 03/20/19 09:17 03/21/19 02:04 Tylenol Oral Solution - NGT 650 mg Q4H PRN Administration FEVER Amino Acids 30 ml 03/19/19 08:00 03/21/19 08:26 Prosource No Carb Liquid Pkt PO 30 ml TIDCM [facility] Administration Enoxaparin Sodium 110 mg 03/17/19 13:00 03/21/19 09:51 Lovenox - SQ 110 mg DAILY [facility] Administration Linezolid 600 mg in 300 mls @ 300 mls/hr 03/18/19 11:45 03/20/19 22:58 Zyvox 600 Mg Premix Bag (Restricted To Id) - IVPB 300 mls/hr Q12H [facility] Administration Protocol Norepinephrine Bitartrate 8, 500 mls @ 18.75 mls/hr 03/19/19 21:15 03/21/19 02:01 000 mcg/ Dextrose IV 5 mcg/min TITR [facility] 18.75 mls/hr Titration Protocol 5 MCG/MIN Fentanyl 500 mcg/ Dextrose 100 mls @ 10 mls/hr 03/20/19 09:30 03/21/19 09:52 IVPB 50 mcg/hr TITR [facility] 10 mls/hr Administration Protocol 50 MCG/HR Insulin Human Regular 100 100 mls @ 6.61 mls/hr 03/20/19 09:45 03/21/19 08:30 units/ Sodium Chloride IVPB 0 units/kg/hr TITR [facility] 0 mls/hr Titration Protocol 0.1 UNITS/KG/HR Ondansetron HCl 4 mg 03/11/19 20:31 03/14/19 05:07 Zofran Injection IVPUSH 4 mg Q6H PRN Administration NAUSEA AND/OR VOMITING Pantoprazole Sodium 40 mg 03/20/19 10:00 03/21/19 09:51 Protonix Iv IVPUSH 40 mg DAILY [facility] Administration Potassium Chloride 20 meq 03/21/19 07:15 03/21/19 10:00 Potassium Chloride 20 Meq Premix Ivpb - IVPB 03/21/19 11:16 20 meq Q2H [facility] Administration Vancomycin HCl 125 mg 03/15/19 18:00 03/21/19 06:32 Vancomycin Oral Solution PO 125 mg Q6HPO [facility] Administration ASSESSMENT/PLAN: Problem List - Problems (1) Acute respiratory failure Assessment/Plan: intubated s/p respiratory failure on 03/19/19 Sedated and on mechanical ventilation. Pressors, lactate elevated, worsening leukocytosis, on meropenem per id. care per ICU Code(s): J96.00 - ACUTE RESPIRATORY FAILURE, UNSP W HYPOXIA OR HYPERCAPNIA (2) Perforated abdominal viscus Assessment/Plan: s/p Ex-lap/RAYSHAWN/partial SB and omental resection with anastomosis/washout on 03/12 on meropenem and flagyl per ID. Code(s): BYN0790 - (3) Abdominal pain Assessment/Plan: Patient is/p ex-lap/RAYSHAWN/partial SB and omental resection with anastomosis/ washout appreciate surgical and ID consultation on meropenem and flagyl NPO,intubated wound care as per surgery Code(s): R10.9 - UNSPECIFIED ABDOMINAL PAIN Qualifiers: Abdominal location: generalized Qualified Code(s): R10.84 - Generalized abdominal pain (4) C. difficile diarrhea Assessment/Plan: + for c diff toxin and antigen ID following monitor output has rectal tube in place Code(s): A04.72 - ENTEROCOLITIS D/T CLOSTRIDIUM DIFFICILE, NOT SPCF RECUR (5) Diabetes Assessment/Plan: monitor bgms. on insulin drip. cmp q4 Code(s): E11.9 - TYPE 2 DIABETES MELLITUS WITHOUT COMPLICATIONS (6) ESBL (extended spectrum beta-lactamase) producing bacteria infection Assessment/Plan: esbl in wound culture. continue IV antibiotics per ID maintain contact precautions. Code(s): A49.9 - BACTERIAL INFECTION, UNSPECIFIED; Z16.12 - EXTENDED SPECTRUM BETA LACTAMASE (ESBL) RESISTANCE (7) HTN (hypertension) Assessment/Plan: ICU monitoring with frequent checks on pressors for support. Code(s): I10 - ESSENTIAL (PRIMARY) HYPERTENSION (8) Left-sided weakness Assessment/Plan: chronic left sided weakness. now with edema of both arms. Code(s): R53.1 - WEAKNESS (9) Acute Crohn's disease Assessment/Plan: lysis of adhesions, segmental resection of small intestinal perforation with side-side stapled anastomosis, abdominal washout, resection of portion of omentum. advance diet as per surgery. on meropenem, flagyl. GI following. Code(s): K50.90 - CROHN'S DISEASE, UNSPECIFIED, WITHOUT COMPLICATIONS (10) Anemia Assessment/Plan: iron panel prior to 2 units of prbc. hmg/hmt trending down Code(s): D64.9 - ANEMIA, UNSPECIFIED (11) Respiratory failure Code(s): J96.90 - RESPIRATORY FAILURE, UNSP, UNSP W HYPOXIA OR HYPERCAPNIA (12) Prophylactic measure Assessment/Plan: NPO monitor electrolytes IVF DVT on lovenox 110 Dispo requires ICU care full code Code(s): Z29.9 - ENCOUNTER FOR PROPHYLACTIC MEASURES, UNSPECIFIED Visit type - Emergency Visit Emergency Visit: Yes ED Registration Date: 03/09/19 Care time: The patient presented to the Emergency Department on the above date and was hospitalized for further evaluation of their emergent condition. - New Patient This patient is new to me today: No - Critical Care Critical Care patient: Yes Total Critical Care Time (in minutes): 45 Critical Care Statement: The care of this patient involved high complexity decision making to prevent further life threatening deterioration of the patient 's condition and/or to evaluate & treat vital organ system(s) failure or risk of failure. - Discharge Referral Referred to [facility] No
--- NOTE | 2019-03-21 12:45 | PROC ---
Central Line Insertion Indication: Poor Venous Access, Sepsis, Vasopressor Risks and Benefits Explained: Yes Consent on Chart: Yes Central Line: Triple Lumen Catheter Anesthesia: 1% Lidocaine Sterile Technique: Yes Ultrasound Guided Assistance: No Position: Right Subclavian Post Insertion: Yes: Bilateral Breath Sounds, Bilateral Chest Expansion, Chest X-Ray Ordered Sterile Dressing Applied: Yes (Easy)
[2019-03-21] MEDS: LINEZOLID 600 MG PREMIX BAG 600 MG/300 ML BAG IVPB SCH (13:00)
[2019-03-21] MEDS: INSULIN REGULAR 100 UNITS in SODIUM CHLORIDE 99 ML IVPB SCH ×2 (13:00→14:00)
--- NOTE | 2019-03-21 13:01 | PN ---
Progress Note, Physician History of Present Illness: still intubated sedated wbc and lactic acid increasing line changed - Current Medication List Current Medications: Active Medications Acetaminophen (Tylenol Oral Solution -) 650 mg NGT Q4H PRN PRN Reason: FEVER Last Admin: 03/21/19 02:04 Dose: 650 mg Amino Acids (Prosource No Carb Liquid Pkt) 30 ml PO TIDCM [facility] Last Admin: 03/21/19 08:26 Dose: 30 ml Enoxaparin Sodium (Lovenox -) 110 mg SQ DAILY [facility] Last Admin: 03/21/19 09:51 Dose: 110 mg Linezolid (Zyvox 600 Mg Premix Bag (Restricted To Id) -) 600 mg in 300 mls @ 300 mls/hr IVPB Q12H [facility]; Protocol Last Admin: 03/20/19 22:58 Dose: 300 mls/hr Norepinephrine Bitartrate 8, (000 mcg/ Dextrose) 500 mls @ 18.75 mls/hr IV TITR [facility]; Protocol Last Titration: 03/21/19 02:01 Dose: 5 mcg/min, 18.75 mls/hr Fentanyl 500 mcg/ Dextrose 100 mls @ 10 mls/hr IVPB TITR [facility]; Protocol Last Admin: 03/21/19 09:52 Dose: 50 mcg/hr, 10 mls/hr Insulin Human Regular 100 (units/ Sodium Chloride) 100 mls @ 6.61 mls/hr IVPB TITR [facility]; Protocol Last Titration: 03/21/19 08:30 Dose: 0 units/kg/hr, 0 mls/hr Ondansetron HCl (Zofran Injection) 4 mg IVPUSH Q6H PRN PRN Reason: NAUSEA AND/OR VOMITING Last Admin: 03/14/19 05:07 Dose: 4 mg Pantoprazole Sodium (Protonix Iv) 40 mg IVPUSH DAILY [facility] Last Admin: 03/21/19 09:51 Dose: 40 mg Vancomycin HCl (Vancomycin Oral Solution) 125 mg PO Q6HPO [facility] Last Admin: 03/21/19 06:32 Dose: 125 mg - Objective Vital Signs: Vital Signs Temperature 99.2 F 03/21/19 08:00 Pulse Rate 94 H 03/21/19 08:47 Respiratory Rate 26 H 03/21/19 12:25 Blood Pressure 94/60 03/21/19 08:00 O2 Sat by Pulse Oximetry (%) 100 03/21/19 09:00 Constitutional: Yes: Other Cardiovascular: Yes: Regular Rate and Rhythm, Tachycardia Respiratory: Yes: Intubated, Mechanically Ventilated Gastrointestinal: Yes: Normal Bowel Sounds, Soft Musculoskeletal: Yes: WNL Extremities: Yes: WNL Wound/Incision: Yes: Dressing Dry and Intact Labs: CBC, BMP 03/21/19 05:30 03/21/19 05:30 INR, PTT INR 1.49 (0.83-1.09) H 03/19/19 23:15 Fibrinogen 359.0 mg/dL (238-498) 03/19/19 23:15 Assessment/Plan SBO versus flair of inflammatory bowel disease R/O GI source of infection Type I IDDM, PE HTN HLD CVA with mild left-sided weakness cdiff plan continue abx ventilator nutrition close watch rest as per icu will send blood cx from the old central line prognosis guarded cc 40 min
[2019-03-21] MEDS ORDERED: NOREPINEPHRINE BITARTRATE 4 MG/4 ML ML IV ONE (13:24)
[2019-03-21] MEDS: NOREPINEPHRINE BITARTRATE 8,000 MCG in DEXTROSE 5%-WATER - 492 ML IV SCH ×2 (14:00→21:45)
--- NOTE | 2019-03-21 15:19 | PN.GI ---
GI Progress Note Subjective: coverage for Dr Hu, above events reviewed, patient remains intubated, asper her Nurse (Slime), diarrhea secondary to C.diif has improved, however, lactic acid is elevated and is on pressors spoke with her fiance, brother and sister in law - Objective Vital Signs: Vital Signs Temperature 99.2 F 03/21/19 08:00 Pulse Rate 94 H 03/21/19 08:47 Respiratory Rate 26 H 03/21/19 12:25 Blood Pressure 94/60 03/21/19 08:00 O2 Sat by Pulse Oximetry (%) 100 03/21/19 09:00 Constitutional: Other (non-arousable, IV sedation discontinued) Respiratory: Yes: Rhonchi ...Palpate: Yes: Soft. No: Firm/Rigid, Guarding, Hepatomegaly, Mass, Pulsatile Mass, Splenomegaly, Tenderness Labs: CBC, BMP 03/21/19 05:30 03/21/19 05:30 INR, PTT INR 1.49 (0.83-1.09) H 03/19/19 23:15 Fibrinogen 359.0 mg/dL (238-498) 03/19/19 23:15 Problem List - Problems (1) Clostridium difficile diarrhea Assessment/Plan: R> continue Vancomycin ,IV Flagyl pronosis guarded Code(s): A04.72 - ENTEROCOLITIS D/T CLOSTRIDIUM DIFFICILE, NOT SPCF RECUR (2) ESBL (extended spectrum beta-lactamase) producing bacteria infection Code(s): A49.9 - BACTERIAL INFECTION, UNSPECIFIED; Z16.12 - EXTENDED SPECTRUM BETA LACTAMASE (ESBL) RESISTANCE (3) Septic shock Code(s): A41.9 - SEPSIS, UNSPECIFIED ORGANISM; R65.21 - SEVERE SEPSIS WITH SEPTIC SHOCK
[2019-03-21] MEDS: PROPOFOL 1,000,000 MCG/100 ML VIAL IVPUSH SCH (17:00)
[2019-03-21 19:28] LABS: CALCIUM 7.1 mg/dL (8.5-10.1); CREATININE 0.6 mg/dL (0.55-1.3); MAGNESIUM 2.2 mg/dL (1.8-2.4); PHOSPHOROUS 1.2 mg/dL (2.5-4.9); POTASSIUM 3.1 mmol/L (3.5-5.1)
[2019-03-22] MEDS: VANCOMYCIN 250 MG/5 ML ORAL SOLUTION PO SCH ×4 (00:04→17:26)
[2019-03-22] MEDS: POTASSIUM CHLORIDE 20 MEQ PREMIX IVPB 100 ML IVPB SCH ×2 (00:04→02:15)
[2019-03-22] MEDS: LINEZOLID 600 MG PREMIX BAG 600 MG/300 ML BAG IVPB SCH ×2 (00:04→12:04)
[2019-03-22] MEDS ORDERED: MEROPENEM 1 GM VIAL (RESTRICTED TO ID) IVPB ONE ×3 (02:13→16:20)
[2019-03-22] MEDS ORDERED: DEXTROSE 5%-WATER 100 ML IVPB ONE ×3 (02:14→16:20)
[2019-03-22] MEDS: MEROPENEM 1 GM in DEXTROSE 5%-WATER 100 ML IVPB SCH ×3 (02:16→17:24)
[2019-03-22 06:31] LABS: BASO % 0.3 % (0-2.0); EOS % 1.7 % (0-4.5); HEMATOCRIT 29.8 % (32.4-45.2); MCH 25.8 pg (25.7-33.7); MCHC 33.5 g/dl (32.0-36.0); MEAN CELL VOLUME 76.9 fl (80-96); MEAN PLT VOLUME 9.4 fl (7.5-11.1); MONO % 1.4 % (3.8-10.2); NEUT % 78.6 % (42.8-82.8); PLATELET COUNT 95 K/MM3 (134-434); RBC 3.88 M/mm3 (3.60-5.2); WHITE BLOOD COUNT 11.1 K/mm3 (4.0-10.0)
[2019-03-22 07:02] LABS: ALBUMIN 1.2 g/dl (3.4-5.0); BILIRUBIN,TOTAL 0.4 mg/dL (0.2-1); BLOOD UREA NITROGEN 18.6 mg/dL (7-18); CREATININE 0.5 mg/dL (0.55-1.3); MAGNESIUM 2.1 mg/dL (1.8-2.4); POTASSIUM 3.9 mmol/L (3.5-5.1); TOT PROT 4.4 g/dl (6.4-8.2)
[2019-03-22 07:05] LABS: CALCIUM 6.9 mg/dL (8.5-10.1)
[2019-03-22] MEDS: FENTANYL INJECTION 500 MCG in DEXTROSE 5%-WATER - 90 ML IVPB SCH ×2 (09:30→20:15)
[2019-03-22] MEDS ORDERED: fentaNYL CITRATE 250 MCG/5 ML VIAL ONE ×2 (09:54→19:58)
[2019-03-22] MEDS: AMINO ACIDS/PROTEIN HYDROLYS 30 ML LIQUID.PKT PO SCH ×3 (10:35→17:21)
[2019-03-22] MEDS: ENOXAPARIN NA (PORCINE) 60 MG/0.6 ML DISP.SYRIN SQ SCH (10:36)
[2019-03-22] MEDS: PANTOPRAZOLE SODIUM 40 MG VIAL IVPUSH SCH (10:37)
[2019-03-22] MEDS: PROPOFOL 1,000,000 MCG/100 ML VIAL IVPUSH SCH (11:04)
--- NOTE | 2019-03-22 11:49 | PN ---
Physical Exam: SUBJECTIVE: Patient seen and examined at bedside. Was placed on insulin gtt over weekend. No acute events overnight. Will perform sedation vacation today. OBJECTIVE: Vital Signs Period Temp Pulse Resp BP Sys/Rapp Pulse Ox Last 24 Hr 99 F-100.5 F 93-130 14-37 95-137/46-84 100-100 GENERAL: The patient is obtunded, responsive only to light, unable to follow commands, unable to withdraw from pain or noxious stimuli. HEAD: Normal with no signs of trauma. EYES: PERRL, sclera anicteric, conjunctiva clear. No ptosis. LUNGS: Breath sounds equal, clear to auscultation bilaterally, no wheezes, no crackles, intermittent labored breathing with accessory muscle use. HEART: Tachycardic, irregular rhythm, S1, S2 without murmur, rub or gallop. ABDOMEN: Soft, nontender, nondistended, normoactive bowel sounds, no guarding, no rebound, no hepatosplenomegaly, no masses. Healing surgical incision with two open wounds with mild purulence. Packing and dressing changed. EXTREMITIES: 2+ pulses, warm, well-perfused. NEUROLOGICAL: Unable to assess. PSYCH: Unable to assess. SKIN: Warm, dry, normal turgor, no rashes or lesions noted Laboratory Results - last 24 hr 03/19/19 03/19/19 03/21/19 23:15 23:15 12:29 WBC RBC Hgb Hct MCV MCH MCHC RDW Plt Count MPV Absolute Neuts (auto) Neutrophils % Lymphocytes % Monocytes % Eosinophils % Basophils % Nucleated RBC % Sodium Potassium Chloride Carbon Dioxide Anion Gap BUN Creatinine Est GFR (CKD-EPI)AfAm Est GFR (CKD-EPI)NonAf POC Glucometer 318 Random Glucose Calcium Phosphorus Magnesium Total Bilirubin AST ALT Alkaline Phosphatase Total Protein Albumin Beta-Hydroxybutyrate Antibody Screen Positive H Antibody Identification D Antigen Identification No Result Required. 03/21/19 03/21/19 03/21/19 14:44 16:27 18:15 WBC RBC Hgb Hct MCV MCH MCHC RDW Plt Count MPV Absolute Neuts (auto) Neutrophils % Lymphocytes % Monocytes % Eosinophils % Basophils % Nucleated RBC % Sodium 143 Potassium 3.1 L Chloride 105 Carbon Dioxide 28 Anion Gap 10 BUN 17.0 Creatinine 0.6 Est GFR (CKD-EPI)AfAm 124.05 Est GFR (CKD-EPI)NonAf 107.03 POC Glucometer 313 257 Random Glucose 137 H Calcium 7.1 L Phosphorus 1.2 L Magnesium 2.2 Total Bilirubin AST ALT Alkaline Phosphatase Total Protein Albumin Beta-Hydroxybutyrate 1.7 Antibody Screen Antibody Identification Antigen Identification 03/21/19 03/21/19 03/21/19 18:25 20:20 21:31 WBC RBC Hgb Hct MCV MCH MCHC RDW Plt Count MPV Absolute Neuts (auto) Neutrophils % Lymphocytes % Monocytes % Eosinophils % Basophils % Nucleated RBC % Sodium Potassium Chloride Carbon Dioxide Anion Gap BUN Creatinine Est GFR (CKD-EPI)AfAm Est GFR (CKD-EPI)NonAf POC Glucometer 136 93 108 Random Glucose Calcium Phosphorus Magnesium Total Bilirubin AST ALT Alkaline Phosphatase Total Protein Albumin Beta-Hydroxybutyrate Antibody Screen Antibody Identification Antigen Identification 03/22/19 03/22/19 03/22/19 00:00 02:29 04:38 WBC RBC Hgb Hct MCV MCH MCHC RDW Plt Count MPV Absolute Neuts (auto) Neutrophils % Lymphocytes % Monocytes % Eosinophils % Basophils % Nucleated RBC % Sodium Potassium Chloride Carbon Dioxide Anion Gap BUN Creatinine Est GFR (CKD-EPI)AfAm Est GFR (CKD-EPI)NonAf POC Glucometer 182 163 141 Random Glucose Calcium Phosphorus Magnesium Total Bilirubin AST ALT Alkaline Phosphatase Total Protein Albumin Beta-Hydroxybutyrate Antibody Screen Antibody Identification Antigen Identification 03/22/19 03/22/19 03/22/19 05:10 05:10 05:10 WBC 11.1 H RBC 3.88 Hgb 10.0 L Hct 29.8 L MCV 76.9 L MCH 25.8 MCHC 33.5 RDW 23.0 H Plt Count 95 L MPV 9.4 Absolute Neuts (auto) 8.7 H Neutrophils % 78.6 Lymphocytes % 18.0 Monocytes % 1.4 L Eosinophils % 1.7 Basophils % 0.3 Nucleated RBC % 0 Sodium 141 Potassium 3.9 Chloride 104 Carbon Dioxide 30 Anion Gap 8 BUN 18.6 H Creatinine 0.5 L Est GFR (CKD-EPI)AfAm 131.72 Est GFR (CKD-EPI)NonAf 113.65 POC Glucometer Random Glucose 156 H Calcium 6.9 L* Phosphorus Magnesium 2.1 Total Bilirubin 0.4 AST 20 ALT 11 L Alkaline Phosphatase 285 H Total Protein 4.4 L Albumin 1.2 L Beta-Hydroxybutyrate 0.9 Antibody Screen Antibody Identification Antigen Identification 03/22/19 03/22/19 07:56 10:49 WBC RBC Hgb Hct MCV MCH MCHC RDW Plt Count MPV Absolute Neuts (auto) Neutrophils % Lymphocytes % Monocytes % Eosinophils % Basophils % Nucleated RBC % Sodium Potassium Chloride Carbon Dioxide Anion Gap BUN Creatinine Est GFR (CKD-EPI)AfAm Est GFR (CKD-EPI)NonAf POC Glucometer 195 152 Random Glucose Calcium Phosphorus Magnesium Total Bilirubin AST ALT Alkaline Phosphatase Total Protein Albumin Beta-Hydroxybutyrate Antibody Screen Antibody Identification Antigen Identification Active Medications Generic Name Dose Route Start Last Admin Trade Name Freq PRN Reason Stop Dose Admin Acetaminophen 650 mg 03/20/19 09:17 03/21/19 16:41 Tylenol Oral Solution - NGT 650 mg Q4H PRN Administration FEVER Amino Acids 30 ml 03/19/19 08:00 03/22/19 10:35 Prosource No Carb Liquid Pkt PO 30 ml TIDCM [facility] Administration Enoxaparin Sodium 110 mg 03/17/19 13:00 03/22/19 10:36 Lovenox - SQ 110 mg DAILY [facility] Administration Linezolid 600 mg in 300 mls @ 300 mls/hr 03/18/19 11:45 03/22/19 00:04 Zyvox 600 Mg Premix Bag (Restricted To Id) - IVPB 300 mls/hr Q12H [facility] Administration Protocol Norepinephrine Bitartrate 8, 500 mls @ 18.75 mls/hr 03/19/19 21:15 03/21/19 21:45 000 mcg/ Dextrose IV Not Given TITR [facility] Protocol 5 MCG/MIN Fentanyl 500 mcg/ Dextrose 100 mls @ 10 mls/hr 03/20/19 09:30 03/22/19 09:30 IVPB 50 mcg/hr TITR [facility] 10 mls/hr Administration Protocol 50 MCG/HR Insulin Human Regular 100 100 mls @ 6.61 mls/hr 03/20/19 09:45 03/22/19 00:00 units/ Sodium Chloride IVPB 0.01 units/kg/hr TITR [facility] 0.66 mls/hr Titration Protocol 0.1 UNITS/KG/HR Meropenem 1 gm/ Dextrose 100 mls @ 200 mls/hr 03/21/19 18:00 03/22/19 10:36 IVPB 200 mls/hr Q8H-IV [facility] Administration Ondansetron HCl 4 mg 03/11/19 20:31 03/14/19 05:07 Zofran Injection IVPUSH 4 mg Q6H PRN Administration NAUSEA AND/OR VOMITING Pantoprazole Sodium 40 mg 03/20/19 10:00 03/22/19 10:37 Protonix Iv IVPUSH 40 mg DAILY [facility] Administration Vancomycin HCl 125 mg 03/15/19 18:00 03/22/19 05:37 Vancomycin Oral Solution PO 125 mg Q6HPO [facility] Administration ASSESSMENT/PLAN: 48F PMH IDDM, PE on xarelto, frequent DKA, HTN, HLD, CVA w/ left sided weakness , recent hospitalization at [facility] September 2018 admitted to ICU for SBO. Developed pneumoperitoneum s/p ex-lap. POD #9 Neuro - sedated - intubated - off sedation to assess mental status - sedation vacation attempted, patient responsive only to light, unable to follow commands and unable to respond to pain or noxious stimuli - Tylenol for pain/fever ctrl CV - hx of transient a-fib with RVR - sinus tachy 118 - No longer hypotensive - Maintain MAP >65 - continue pressors - if persistent a-fib start amiodarone Respiratory - Patient removed BIPAP desatted and intubated - Lasix IV 40 BID - monitor resp status - sedation vacation attempted, patient began having increased work of breathing and was placed back on sedation GI - Crohn's flair likely, pneumoperitoneum s/p ex-lap - started on linezolid - GI recs appreciated continuing w/ C diff management but have to d/c vanco. ID - ID recs appreciated - c/w flagyl, meropenem 1g TID due to ESBL and klebsiella pna in wound culture. - d/c vanco due to pt unable to tolerate PO med, and start linezolid. - Cx + LF neg bacilli - UCx + VRE - CDiff Ag and toxin pos - WBC 11.1 FEN - lasix given - Lytes in AM, replete PRN - Phos repleted - Monitor I/Os - Monitor UrO, Cr PPx: Lovenox 110, SCDs Visit type - Emergency Visit Emergency Visit: Yes ED Registration Date: 03/09/19 Care time: The patient presented to the Emergency Department on the above date and was hospitalized for further evaluation of their emergent condition. - New Patient This patient is new to me today: Yes Date on this admission: 03/23/19 - Critical Care Critical Care patient: Yes Total Critical Care Time (in minutes): 35 Critical Care Statement: The care of this patient involved high complexity decision making to prevent further life threatening deterioration of the patient 's condition and/or to evaluate & treat vital organ system(s) failure or risk of failure. ATTENDING PHYSICIAN STATEMENT I saw and evaluated the patient. I reviewed the resident's note and discussed the case with the resident. I agree with the resident's findings and plan as documented. SUBJECTIVE: OBJECTIVE: ASSESSMENT AND PLAN:
--- NOTE | 2019-03-22 12:00 | PN ---
Teaching Attending Note Name of Resident: Baljeet Parr ATTENDING PHYSICIAN STATEMENT I saw and evaluated the patient. I reviewed the resident's note and discussed the case with the resident. I agree with the resident's findings and plan as documented. SUBJECTIVE: Patient seen and examined in the ICU. Remains intubated and sedated. AC Mode of vent, 40% FiO2. Remains on NE @ 2 mcq for hemodynamic support. OBJECTIVE: Intake & Output 03/19/19 03/20/19 03/21/19 03/22/19 23:59 23:59 23:59 23:59 Intake Total 2140 3642.8 1918.1 1275 Output Total 1500 2900 900 500 Balance 640 742.8 1018.1 775 Weight 145 lb 14.4 oz 146 lb 14.4 oz 147 lb 2 oz Last Vital Signs Temp Pulse Resp BP Pulse Ox 100 F H 99 H 24 H 102/46 L 100 03/22/19 06:00 03/22/19 10:00 03/22/19 10:00 03/22/19 10:00 03/22/19 11:00 Active Medications Acetaminophen (Tylenol Oral Solution -) 650 mg NGT Q4H PRN PRN Reason: FEVER Last Admin: 03/21/19 16:41 Dose: 650 mg Amino Acids (Prosource No Carb Liquid Pkt) 30 ml PO TIDCM [facility] Last Admin: 03/22/19 10:35 Dose: 30 ml Enoxaparin Sodium (Lovenox -) 110 mg SQ DAILY [facility] Last Admin: 03/22/19 10:36 Dose: 110 mg Linezolid (Zyvox 600 Mg Premix Bag (Restricted To Id) -) 600 mg in 300 mls @ 300 mls/hr IVPB Q12H [facility]; Protocol Last Admin: 03/22/19 00:04 Dose: 300 mls/hr Norepinephrine Bitartrate 8, (000 mcg/ Dextrose) 500 mls @ 18.75 mls/hr IV TITR [facility]; Protocol Last Admin: 03/21/19 21:45 Dose: Not Given Fentanyl 500 mcg/ Dextrose 100 mls @ 10 mls/hr IVPB TITR [facility]; Protocol Last Admin: 03/22/19 09:30 Dose: 50 mcg/hr, 10 mls/hr Meropenem 1 gm/ Dextrose 100 mls @ 200 mls/hr IVPB Q8H-IV [facility] Last Admin: 03/22/19 10:36 Dose: 200 mls/hr Ondansetron HCl (Zofran Injection) 4 mg IVPUSH Q6H PRN PRN Reason: NAUSEA AND/OR VOMITING Last Admin: 03/14/19 05:07 Dose: 4 mg Pantoprazole Sodium (Protonix Iv) 40 mg IVPUSH DAILY [facility] Last Admin: 03/22/19 10:37 Dose: 40 mg Vancomycin HCl (Vancomycin Oral Solution) 125 mg PO Q6HPO [facility] Last Admin: 03/22/19 05:37 Dose: 125 mg Gen: Intubated and sedated Heart: S1S2, tachycardia Lungs: intubated, bilateral scattered rhonchi Abd: soft, nontender Ext: + edema [employer]: Sedated, 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, pupils equal but sluggish Laboratory Results - last 24 hr 03/19/19 03/19/19 03/21/19 23:15 23:15 12:29 WBC RBC Hgb Hct MCV MCH MCHC RDW Plt Count MPV Absolute Neuts (auto) Neutrophils % Lymphocytes % Monocytes % Eosinophils % Basophils % Nucleated RBC % Sodium Potassium Chloride Carbon Dioxide Anion Gap BUN Creatinine Est GFR (CKD-EPI)AfAm Est GFR (CKD-EPI)NonAf POC Glucometer 318 Random Glucose Calcium Phosphorus Magnesium Total Bilirubin AST ALT Alkaline Phosphatase Total Protein Albumin Beta-Hydroxybutyrate Antibody Screen Positive H Antibody Identification D Antigen Identification No Result Required. 03/21/19 03/21/19 03/21/19 14:44 16:27 18:15 WBC RBC Hgb Hct MCV MCH MCHC RDW Plt Count MPV Absolute Neuts (auto) Neutrophils % Lymphocytes % Monocytes % Eosinophils % Basophils % Nucleated RBC % Sodium 143 Potassium 3.1 L Chloride 105 Carbon Dioxide 28 Anion Gap 10 BUN 17.0 Creatinine 0.6 Est GFR (CKD-EPI)AfAm 124.05 Est GFR (CKD-EPI)NonAf 107.03 POC Glucometer 313 257 Random Glucose 137 H Calcium 7.1 L Phosphorus 1.2 L Magnesium 2.2 Total Bilirubin AST ALT Alkaline Phosphatase Total Protein Albumin Beta-Hydroxybutyrate 1.7 Antibody Screen Antibody Identification Antigen Identification 03/21/19 03/21/19 03/21/19 18:25 20:20 21:31 WBC RBC Hgb Hct MCV MCH MCHC RDW Plt Count MPV Absolute Neuts (auto) Neutrophils % Lymphocytes % Monocytes % Eosinophils % Basophils % Nucleated RBC % Sodium Potassium Chloride Carbon Dioxide Anion Gap BUN Creatinine Est GFR (CKD-EPI)AfAm Est GFR (CKD-EPI)NonAf POC Glucometer 136 93 108 Random Glucose Calcium Phosphorus Magnesium Total Bilirubin AST ALT Alkaline Phosphatase Total Protein Albumin Beta-Hydroxybutyrate Antibody Screen Antibody Identification Antigen Identification 03/22/19 03/22/19 03/22/19 00:00 02:29 04:38 WBC RBC Hgb Hct MCV MCH MCHC RDW Plt Count MPV Absolute Neuts (auto) Neutrophils % Lymphocytes % Monocytes % Eosinophils % Basophils % Nucleated RBC % Sodium Potassium Chloride Carbon Dioxide Anion Gap BUN Creatinine Est GFR (CKD-EPI)AfAm Est GFR (CKD-EPI)NonAf POC Glucometer 182 163 141 Random Glucose Calcium Phosphorus Magnesium Total Bilirubin AST ALT Alkaline Phosphatase Total Protein Albumin Beta-Hydroxybutyrate Antibody Screen Antibody Identification Antigen Identification 03/22/19 03/22/19 03/22/19 05:10 05:10 05:10 WBC 11.1 H RBC 3.88 Hgb 10.0 L Hct 29.8 L MCV 76.9 L MCH 25.8 MCHC 33.5 RDW 23.0 H Plt Count 95 L MPV 9.4 Absolute Neuts (auto) 8.7 H Neutrophils % 78.6 Lymphocytes % 18.0 Monocytes % 1.4 L Eosinophils % 1.7 Basophils % 0.3 Nucleated RBC % 0 Sodium 141 Potassium 3.9 Chloride 104 Carbon Dioxide 30 Anion Gap 8 BUN 18.6 H Creatinine 0.5 L Est GFR (CKD-EPI)AfAm 131.72 Est GFR (CKD-EPI)NonAf 113.65 POC Glucometer Random Glucose 156 H Calcium 6.9 L* Phosphorus Magnesium 2.1 Total Bilirubin 0.4 AST 20 ALT 11 L Alkaline Phosphatase 285 H Total Protein 4.4 L Albumin 1.2 L Beta-Hydroxybutyrate 0.9 Antibody Screen Antibody Identification Antigen Identification 03/22/19 03/22/19 07:56 10:49 WBC RBC Hgb Hct MCV MCH MCHC RDW Plt Count MPV Absolute Neuts (auto) Neutrophils % Lymphocytes % Monocytes % Eosinophils % Basophils % Nucleated RBC % Sodium Potassium Chloride Carbon Dioxide Anion Gap BUN Creatinine Est GFR (CKD-EPI)AfAm Est GFR (CKD-EPI)NonAf POC Glucometer 195 152 Random Glucose Calcium Phosphorus Magnesium Total Bilirubin AST ALT Alkaline Phosphatase Total Protein Albumin Beta-Hydroxybutyrate Antibody Screen Antibody Identification Antigen Identification ASSESSMENT AND PLAN: CP arrest with suspected JUAQUIN Acute Hypoxic Respiratory Failure Perforated Small Bowel s/p ex-lap/RAYSHAWN/segmental SB resection Crohn's Disease Peritonitis +C diff Colitis Septic Shock Lactic Acidosis Volume Overload h/o PE HTN DM Hyperlipidemia h/o CVA - DC all sedation to assess Neuro exam - ABX per ID - Access was changed - monitor urine output, creatinine - monitor and replete lytes - Pressors for MAP < 65 - Glycemic control - AC due to PE/DVT history - Wean trials depending on mental status - Requires continued ICU monitoring Dr Otero Critical care time spent in revieiwing chart, evaluating patient and formulating plan 35 min
[2019-03-22] MEDS: INSULIN REGULAR 100 UNITS in SODIUM CHLORIDE 99 ML IVPB SCH (12:08)
[2019-03-22] MEDS: PROPOFOL 1,000,000 MCG/100 ML VIAL IVPB SCH ×2 (14:30→20:15)
[2019-03-22] MEDS: INSULIN SLIDING SCALE (NOVOLOG) 1 VIAL SQ SCH ×3 (16:11→21:56)
--- NOTE | 2019-03-22 16:29 | PN ---
Physical Exam: SUBJECTIVE: Patient seen and examined at the bedside. intubated. OBJECTIVE: Patient is a 48 year old female with a past medical history of DKA. She is s/p post exploratory lap and resection of illial perforation 03/12. Post op course treated for bacteremia and C-Diff. AC was restarted post op (lovenox 110). She became pulseless on 03/19/19 at 0600 and CPR was initiated. She was given epi and intubated to protect airway. tele showed rapid afib. She had a troponin elevation and her ekg w/o st elevations. she was evaluated by cardiology and remains intubated in the ICU. She continues to have agonal breathing. Vital Signs Period Temp Pulse Resp BP Sys/Rapp Pulse Ox Last 24 Hr 99 F-100.5 F 93-128 14-34 95-124/46-83 100-100 GENERAL: intubated, anasarca - agonal breathing. HEAD: Normal with no signs of trauma. EYES: left eye with a small area of fluid build up inside sclera. pupils reactive to light. ENT: Ears normal, nares patent, oropharynx clear without exudates, moist mucous membranes. NECK: Trachea midline, full range of motion, supple. LUNGS: clear to auscultation bilaterally, intubated HEART: tachycardia to the 140s ABDOMEN: surgical wound changed today EXTREMITIES: anasacra NEUROLOGICAL: intubated, agonal breathing Laboratory Results - last 24 hr 03/19/19 03/19/19 03/21/19 23:15 23:15 16:27 WBC RBC Hgb Hct MCV MCH MCHC RDW Plt Count MPV Absolute Neuts (auto) Neutrophils % Lymphocytes % Monocytes % Eosinophils % Basophils % Nucleated RBC % Sodium Potassium Chloride Carbon Dioxide Anion Gap BUN Creatinine Est GFR (CKD-EPI)AfAm Est GFR (CKD-EPI)NonAf POC Glucometer 257 Random Glucose Calcium Phosphorus Magnesium Total Bilirubin AST ALT Alkaline Phosphatase Total Protein Albumin Beta-Hydroxybutyrate Antibody Screen Positive H Antibody Identification D Antigen Identification No Result Required. 03/21/19 03/21/19 03/21/19 18:15 18:25 20:20 WBC RBC Hgb Hct MCV MCH MCHC RDW Plt Count MPV Absolute Neuts (auto) Neutrophils % Lymphocytes % Monocytes % Eosinophils % Basophils % Nucleated RBC % Sodium 143 Potassium 3.1 L Chloride 105 Carbon Dioxide 28 Anion Gap 10 BUN 17.0 Creatinine 0.6 Est GFR (CKD-EPI)AfAm 124.05 Est GFR (CKD-EPI)NonAf 107.03 POC Glucometer 136 93 Random Glucose 137 H Calcium 7.1 L Phosphorus 1.2 L Magnesium 2.2 Total Bilirubin AST ALT Alkaline Phosphatase Total Protein Albumin Beta-Hydroxybutyrate 1.7 Antibody Screen Antibody Identification Antigen Identification 03/21/19 03/22/19 03/22/19 21:31 00:00 02:29 WBC RBC Hgb Hct MCV MCH MCHC RDW Plt Count MPV Absolute Neuts (auto) Neutrophils % Lymphocytes % Monocytes % Eosinophils % Basophils % Nucleated RBC % Sodium Potassium Chloride Carbon Dioxide Anion Gap BUN Creatinine Est GFR (CKD-EPI)AfAm Est GFR (CKD-EPI)NonAf POC Glucometer 108 182 163 Random Glucose Calcium Phosphorus Magnesium Total Bilirubin AST ALT Alkaline Phosphatase Total Protein Albumin Beta-Hydroxybutyrate Antibody Screen Antibody Identification Antigen Identification 03/22/19 03/22/19 03/22/19 04:38 05:10 05:10 WBC 11.1 H RBC 3.88 Hgb 10.0 L Hct 29.8 L MCV 76.9 L MCH 25.8 MCHC 33.5 RDW 23.0 H Plt Count 95 L MPV 9.4 Absolute Neuts (auto) 8.7 H Neutrophils % 78.6 Lymphocytes % 18.0 Monocytes % 1.4 L Eosinophils % 1.7 Basophils % 0.3 Nucleated RBC % 0 Sodium 141 Potassium 3.9 Chloride 104 Carbon Dioxide 30 Anion Gap 8 BUN 18.6 H Creatinine 0.5 L Est GFR (CKD-EPI)AfAm 131.72 Est GFR (CKD-EPI)NonAf 113.65 POC Glucometer 141 Random Glucose 156 H Calcium 6.9 L* Phosphorus Magnesium 2.1 Total Bilirubin 0.4 AST 20 ALT 11 L Alkaline Phosphatase 285 H Total Protein 4.4 L Albumin 1.2 L Beta-Hydroxybutyrate Antibody Screen Antibody Identification Antigen Identification 03/22/19 03/22/19 03/22/19 05:10 07:56 10:49 WBC RBC Hgb Hct MCV MCH MCHC RDW Plt Count MPV Absolute Neuts (auto) Neutrophils % Lymphocytes % Monocytes % Eosinophils % Basophils % Nucleated RBC % Sodium Potassium Chloride Carbon Dioxide Anion Gap BUN Creatinine Est GFR (CKD-EPI)AfAm Est GFR (CKD-EPI)NonAf POC Glucometer 195 152 Random Glucose Calcium Phosphorus Magnesium Total Bilirubin AST ALT Alkaline Phosphatase Total Protein Albumin Beta-Hydroxybutyrate 0.9 Antibody Screen Antibody Identification Antigen Identification 03/22/19 14:56 WBC RBC Hgb Hct MCV MCH MCHC RDW Plt Count MPV Absolute Neuts (auto) Neutrophils % Lymphocytes % Monocytes % Eosinophils % Basophils % Nucleated RBC % Sodium Potassium Chloride Carbon Dioxide Anion Gap BUN Creatinine Est GFR (CKD-EPI)AfAm Est GFR (CKD-EPI)NonAf POC Glucometer 312 Random Glucose Calcium Phosphorus Magnesium Total Bilirubin AST ALT Alkaline Phosphatase Total Protein Albumin Beta-Hydroxybutyrate Antibody Screen Antibody Identification Antigen Identification Active Medications Generic Name Dose Route Start Last Admin Trade Name Freq PRN Reason Stop Dose Admin Acetaminophen 1,000 mg 03/22/19 16:17 Ofirmev Injection - IVPB Q6H PRN PAIN OR FEVER Amino Acids 30 ml 03/19/19 08:00 03/22/19 12:04 Prosource No Carb Liquid Pkt PO 30 ml TIDCM [facility] Administration Enoxaparin Sodium 110 mg 03/17/19 13:00 03/22/19 10:36 Lovenox - SQ 110 mg DAILY [facility] Administration Linezolid 600 mg in 300 mls @ 300 mls/hr 03/18/19 11:45 03/22/19 12:04 Zyvox 600 Mg Premix Bag (Restricted To Id) - IVPB 300 mls/hr Q12H [facility] Administration Protocol Norepinephrine Bitartrate 8, 500 mls @ 18.75 mls/hr 03/19/19 21:15 03/21/19 21:45 000 mcg/ Dextrose IV Not Given TITR [facility] Protocol 5 MCG/MIN Fentanyl 500 mcg/ Dextrose 100 mls @ 10 mls/hr 03/20/19 09:30 03/22/19 09:30 IVPB 50 mcg/hr TITR [facility] 10 mls/hr Administration Protocol 50 MCG/HR Meropenem 1 gm/ Dextrose 100 mls @ 200 mls/hr 03/21/19 18:00 03/22/19 10:36 IVPB 200 mls/hr Q8H-IV [facility] Administration Insulin Aspart 1 vial 03/22/19 16:30 03/22/19 16:11 Novolog Vial Sliding Scale - SQ 10 units ACHS [facility] Administration Protocol Ondansetron HCl 4 mg 03/11/19 20:31 03/14/19 05:07 Zofran Injection IVPUSH 4 mg Q6H PRN Administration NAUSEA AND/OR VOMITING Pantoprazole Sodium 40 mg 03/20/19 10:00 03/22/19 10:37 Protonix Iv IVPUSH 40 mg DAILY [facility] Administration Vancomycin HCl 125 mg 03/15/19 18:00 03/22/19 12:05 Vancomycin Oral Solution PO 125 mg Q6HPO [facility] Administration ASSESSMENT/PLAN: Problem List - Problems (1) Acute respiratory failure Assessment/Plan: intubated s/p respiratory failure on 03/19/19 Pressors nore epi @ 2mcq, lactate elevated, worsening leukocytosis, on meropenem per id. care per ICU Remains intubated and sedated. AC Mode of vent, 40% FiO2. Code(s): J96.00 - ACUTE RESPIRATORY FAILURE, UNSP W HYPOXIA OR HYPERCAPNIA (2) Perforated abdominal viscus Assessment/Plan: s/p Ex-lap/RAYSHAWN/partial SB and omental resection with anastomosis/washout on 03/12 on meropenem and flagyl per ID. wounds changed today. Code(s): GZZ4042 - (3) Abdominal pain Assessment/Plan: Patient is/p ex-lap/RAYSHAWN/partial SB and omental resection with anastomosis/ washout appreciate surgical and ID consultation on meropenem and flagyl NPO, intubated wound care as per surgery Code(s): R10.9 - UNSPECIFIED ABDOMINAL PAIN Qualifiers: Abdominal location: generalized Qualified Code(s): R10.84 - Generalized abdominal pain (4) C. difficile diarrhea Assessment/Plan: + for c diff toxin and antigen ID following monitor output Code(s): A04.72 - ENTEROCOLITIS D/T CLOSTRIDIUM DIFFICILE, NOT SPCF RECUR (5) Diabetes Assessment/Plan: monitor bgms. stopped insulin drip. on short acting novolog. Code(s): E11.9 - TYPE 2 DIABETES MELLITUS WITHOUT COMPLICATIONS (6) ESBL (extended spectrum beta-lactamase) producing bacteria infection Assessment/Plan: esbl in wound culture. continue IV antibiotics per ID maintain contact precautions. Code(s): A49.9 - BACTERIAL INFECTION, UNSPECIFIED; Z16.12 - EXTENDED SPECTRUM BETA LACTAMASE (ESBL) RESISTANCE (7) HTN (hypertension) Assessment/Plan: ICU monitoring with frequent checks on pressors for support. Code(s): I10 - ESSENTIAL (PRIMARY) HYPERTENSION (8) Left-sided weakness Assessment/Plan: chronic left sided weakness. now with edema of both arms and anasarca Code(s): R53.1 - WEAKNESS (9) Acute Crohn's disease Assessment/Plan: lysis of adhesions, segmental resection of small intestinal perforation with side-side stapled anastomosis, abdominal washout, resection of portion of omentum. advance diet as per surgery. on meropenem, flagyl. GI following. Code(s): K50.90 - CROHN'S DISEASE, UNSPECIFIED, WITHOUT COMPLICATIONS (10) Anemia Assessment/Plan: s/p 2 units of prbc. Code(s): D64.9 - ANEMIA, UNSPECIFIED (11) Respiratory failure Code(s): J96.90 - RESPIRATORY FAILURE, UNSP, UNSP W HYPOXIA OR HYPERCAPNIA (12) Prophylactic measure Assessment/Plan: NPO monitor electrolytes IVF DVT on lovenox 110 Dispo requires ICU care full code Code(s): Z29.9 - ENCOUNTER FOR PROPHYLACTIC MEASURES, UNSPECIFIED Visit type - Emergency Visit Emergency Visit: Yes ED Registration Date: 03/09/19 Care time: The patient presented to the Emergency Department on the above date and was hospitalized for further evaluation of their emergent condition. - New Patient This patient is new to me today: No - Critical Care Critical Care patient: Yes Total Critical Care Time (in minutes): 40 Critical Care Statement: The care of this patient involved high complexity decision making to prevent further life threatening deterioration of the patient 's condition and/or to evaluate & treat vital organ system(s) failure or risk of failure.
[2019-03-22] MEDS: ACETAMINOPHEN 1000 MG/100 ML VIAL (NON FORMULARY) IVPB PRN (16:45)
--- NOTE | 2019-03-22 17:24 | PN.GI ---
GI Progress Note Subjective: Pt seen/examined at bedside, pts fiance at bedside, events noted from 03/19, pt with cardiopulmonary arrest requiring CPR and intubation. Pt remains on pressors. Diarrhea improved ~200cc dark brown liquid stool in flexiseal. - Objective Vital Signs: Vital Signs Temperature 100 F H 03/22/19 06:00 Pulse Rate 99 H 03/22/19 10:00 Respiratory Rate 34 H 03/22/19 16:15 Blood Pressure 102/46 L 03/22/19 10:00 O2 Sat by Pulse Oximetry (%) 100 03/22/19 11:00 Constitutional: Calm, Other (Intubated/sedated) Cardiovascular: Yes: WNL, Regular Rate and Rhythm Respiratory: Yes: Mechanically Ventilated ...Palpate: Yes: Other (Abd soft, no tenderness elicited, nondistended + dressing in place) Labs: CBC, BMP 03/22/19 05:10 03/22/19 05:10 INR, PTT INR 1.49 (0.83-1.09) H 03/19/19 23:15 Fibrinogen 359.0 mg/dL (238-498) 03/19/19 23:15 Problem List - Problems (1) C. difficile diarrhea Assessment/Plan: Diarrhea has improved, elevated lactate and mild leucocytosis noted. Recently on course of prednisone being managed by GI at [facility] for reported crohns disease now tapered off. -Continue to monitor stool output -Monitor and replete electrolytes -Monitor wcc -Obtain CT abd/pelvis -Continue vancomycin (antibiotics being adjusted per ID, now also on meropenem and linezolid due to culture results) -Further recommendations per ID Code(s): A04.72 - ENTEROCOLITIS D/T CLOSTRIDIUM DIFFICILE, NOT SPCF RECUR (2) Small bowel perforation Assessment/Plan: S/p ex lap and small bowel resection with ileal perforation, path revealing severe serositis. Records available in chart note h/o small bowel crohns disease s/p prior resection (path report not available). EGD and colonoscopies without evidence of crohns. Pt had cardiopulmonary arrest now intubated and on pressors. Elevated lactate noted. -Recommend obtain CT abd/pelvis as noted above -Follow up cultures -Antibiotics per ID -Will need to obtain additional records as prior diagnosis/histological evidence of crohns remains unclear. Call placed to Celina MARROQUIN (await call back) . -Further recommendations per MICU and surgery team. Discussed with MICU resident Code(s): K63.1 - PERFORATION OF INTESTINE (NONTRAUMATIC)
[2019-03-22] MEDS ORDERED: INSULIN (NOVOLOG) ASPART 100 UNITS/ML 10ML VIAL SQ ONE (18:00)
[2019-03-22] MEDS ORDERED: INSULIN REGULAR HUMAN 100 UNITS/ML *VIAL SQ ONE (18:00)
[2019-03-22] MEDS ORDERED: IBUPROFEN 800 MG/8 ML IJ IVPB ONE (18:09)
[2019-03-22] MEDS: INSULIN (LEVEMIR) 100 UNITS/ML UNITS SQ SCH ×2 (18:38→21:55)
[2019-03-22] MEDS ORDERED: PT OWN MED DRAWER 7, Y5N ONE (20:27)
[2019-03-22] MEDS: NOREPINEPHRINE BITARTRATE 8,000 MCG in DEXTROSE 5%-WATER - 492 ML IV SCH (21:53)
--- NOTE | 2019-03-22 23:13 | PN ---
Progress Note, Physician Chief Complaint: Abdominal Pain History of Present Illness: 48yo female PMH HTN, CVA (left sided hemiparesis), HLD, IDDM, DKA resulting in multiple admissions, dysphagia, gastroparesis, esophageal stricture (EGD 02/14), c/diff (10/2018), SBO September 2018 (s/p SB resection at [facility] as per pt report) presented to [facility] ED on the afternoon of 12/21 with complaints of N/V/D/ abd pain intermittently for years. She has had persistent pain but has had improved hemodynamics after IVF resuscitation. - Current Medication List Current Medications: Active Medications Acetaminophen (Ofirmev Injection -) 1,000 mg IVPB Q6H PRN PRN Reason: PAIN OR FEVER Last Admin: 03/22/19 16:45 Dose: 1,000 mg Amino Acids (Prosource No Carb Liquid Pkt) 30 ml PO TIDCM [facility] Last Admin: 03/22/19 17:21 Dose: 30 ml Enoxaparin Sodium (Lovenox -) 110 mg SQ DAILY [facility] Last Admin: 03/22/19 10:36 Dose: 110 mg Linezolid (Zyvox 600 Mg Premix Bag (Restricted To Id) -) 600 mg in 300 mls @ 300 mls/hr IVPB Q12H [facility]; Protocol Last Admin: 03/22/19 12:04 Dose: 300 mls/hr Norepinephrine Bitartrate 8, (000 mcg/ Dextrose) 500 mls @ 18.75 mls/hr IV TITR [facility]; Protocol Last Admin: 03/22/19 21:53 Dose: 6 mcg/min, 22.5 mls/hr Fentanyl 500 mcg/ Dextrose 100 mls @ 10 mls/hr IVPB TITR [facility]; Protocol Last Admin: 03/22/19 20:15 Dose: 50 mcg/hr, 10 mls/hr Meropenem 1 gm/ Dextrose 100 mls @ 200 mls/hr IVPB Q8H-IV [facility] Last Admin: 03/22/19 17:24 Dose: 200 mls/hr Propofol (Diprivan -) 1,000,000 mcg in 100 mls @ 2.002 mls/hr IVPB TITR [facility]; Protocol Last Admin: 03/22/19 20:15 Dose: 60 mcg/kg/min, 24.025 mls/hr Insulin Aspart (Novolog Vial Sliding Scale -) 1 vial SQ ACHS REPLACED BY [facility]; Protocol Last Admin: 03/22/19 21:56 Dose: 6 units Insulin Detemir (Levemir Vial) 15 units SQ HS REPLACED BY [facility] Last Admin: 03/22/19 21:55 Dose: 15 units Ondansetron HCl (Zofran Injection) 4 mg IVPUSH Q6H PRN PRN Reason: NAUSEA AND/OR VOMITING Last Admin: 03/14/19 05:07 Dose: 4 mg Pantoprazole Sodium (Protonix Iv) 40 mg IVPUSH DAILY REPLACED BY [facility] Last Admin: 03/22/19 10:37 Dose: 40 mg Vancomycin HCl (Vancomycin Oral Solution) 125 mg PO Q6HPO REPLACED BY [facility] Last Admin: 03/22/19 17:26 Dose: 125 mg - Objective Vital Signs: Vital Signs Temperature 101.6 F H 03/22/19 20:00 Pulse Rate 120 H 03/22/19 21:53 Respiratory Rate 24 H 03/22/19 21:00 Blood Pressure 102/63 03/22/19 21:53 O2 Sat by Pulse Oximetry (%) 100 03/22/19 11:00 Vital Signs Period Temp Pulse Resp BP Sys/Rapp Pulse Ox Last 24 Hr 98.2 F-102.5 F 101-148 19-36 78-124/50-72 100-100 Intake & Output 03/22/19 03/23/19 03/23/19 23:59 07:59 15:59 Intake Total 982 1560 Output Total 900 1000 Balance 82 560 Weight 148 lb 8 oz Intake: IV 382 684 D10w - 1,000 ml @ 75 mls/ 30 hr IV ASDIR REPLACED BY [facility] Rx#: [id number] DIPRIVAN - 1,000,000 mcg 91 237 In 100 ml @ 5 MCG/KG/MIN 2.002 mls/hr IVPB TITR [facility] Rx#:[id number] Levophed - 8,000 Mcg In 143 309 D5w - 492 ml @ 5 MCG/MIN 18.75 mls/hr IV TITR [facility] Rx#:[id number] NOVOLIN R VIAL *For 4 IVPUSH or IV DRIP Only* 100 UNITS In Normal Saline - 99 ml @ 0.1 UNITS/KG/HR 6.61 mls/hr IVPB TITR [facility] Rx#: [id number] Sublimaze Injection - 500 144 108 Mcg In D5w - 90 ml @ 50 MCG/HR 10 mls/hr IVPB TITR [facility] Rx#:[id number] IVPB 600 386 Tube Feeding 240 Tube Irrigant 250 Output: Urine 900 1000 Lott 900 1000 Other: Voiding Method Indwelling Catheter Indwelling Catheter Bowel Movement Yes: flexiseal # Bowel Movements 1 Weight Measurement Method Built in [place] Constitutional: Yes: No Distress, Calm, Cachectic Eyes: Yes: Conjunctiva Clear, EOM Intact, PERRL HENT: Yes: Atraumatic, Normocephalic Neck: Yes: Supple, Trachea Midline Cardiovascular: Yes: Regular Rate and Rhythm, S1, S2 Respiratory: Yes: Regular, Mechanically Ventilated, Rales Gastrointestinal: Yes: Normal Bowel Sounds, Soft, Other (mildline wound). No: Tenderness Genitourinary: No: CVA Tenderness - Left, CVA Tenderness - Right Extremities: No: Cool, Cyanosis Edema: Yes Edema: LUE: 2+, RUE: 2+, LLE: 2+, RLE: 2+ Peripheral Pulses WNL: Yes Peripheral Pulses: Left Radial: 2+, Right Radial: 2+, Left Doralis Pedis: 2+, Right Dorsalis Pedis: 2+, Left Femoral: 2+, Right Femoral: 2+ Integumentary: No: Jaundice, Rash Wound/Incision: Yes: Clean/Dry, Mikey Intact, Dressing Dry and Intact, Unapproximated Neurological: Yes: Alert. No: Oriented Psychiatric: Yes: Alert. No: Oriented Labs: CBC, BMP 03/22/19 05:10 03/22/19 05:10 INR, PTT INR 1.49 (0.83-1.09) H 03/19/19 23:15 Fibrinogen 359.0 mg/dL (238-498) 03/19/19 23:15 - ....Imaging Chest X-ray: Report Reviewed, Image Reviewed Problem List - Problems (1) Small bowel obstruction Assessment/Plan: 48yo female with MMP including SBO, chronic constipation, Gastroparesis and crohns disease presenting with Abdominal pain. She has several possible explanations for this pain. POD#7 Exp Lap and Segmental resection of small intestinal perforation. Poor saturation and hospital acquired infections ESBL and Cdiff. Intubated overnight. GIB now improved H&H following transfusion. Monitored Setting ICU management Will consider VAC dressing treat Cdiff and ESBL Transfuse as need crohns management oob will follow This patient is critically ill. Time spent reviewing chart, examining patient, talking with providers and/or family and documentation is 35 minutes. Problems reviewed: Yes Code(s): K56.609 - UNSP INTESTNL OBST, UNSP TO PARTIAL VERSUS COMPLETE OBST (2) Abdominal pain Problems reviewed: Yes Code(s): R10.9 - UNSPECIFIED ABDOMINAL PAIN Qualifiers: Abdominal location: generalized Qualified Code(s): R10.84 - Generalized abdominal pain (3) Crohn's disease Code(s): K50.90 - CROHN'S DISEASE, UNSPECIFIED, WITHOUT COMPLICATIONS Qualifiers: Gastrointestinal tract location: small intestine Digestive disease complication type: with rectal bleeding Qualified Code(s): K50.011 - Crohn's disease of small intestine with rectal bleeding (4) DKA (diabetic ketoacidoses) Code(s): E13.10 - OTH DIABETES MELLITUS WITH KETOACIDOSIS WITHOUT COMA Qualifiers: Diabetes mellitus type: type 1 Diabetes mellitus complication detail: without coma Qualified Code(s): E10.10 - Type 1 diabetes mellitus with ketoacidosis without coma (5) Nausea & vomiting Code(s): R11.2 - NAUSEA WITH VOMITING, UNSPECIFIED Qualifiers: Vomiting type: cyclical vomiting Vomiting Intractability: intractable Qualified Code(s): G43.A1 - Cyclical vomiting, intractable (6) Cerebrovascular accident (CVA) Code(s): I63.9 - CEREBRAL INFARCTION, UNSPECIFIED Qualifiers: CVA mechanism: unspecified Qualified Code(s): I63.9 - Cerebral infarction, unspecified
[2019-03-23] MEDS: LINEZOLID 600 MG PREMIX BAG 600 MG/300 ML BAG IVPB SCH ×3 (00:17→23:43)
[2019-03-23] MEDS: VANCOMYCIN 250 MG/5 ML ORAL SOLUTION PO SCH ×4 (00:18→18:00)
[2019-03-23] MEDS: PROPOFOL 1,000,000 MCG/100 ML VIAL IVPB SCH ×2 (02:00→22:02)
[2019-03-23] MEDS ORDERED: MEROPENEM 1 GM VIAL (RESTRICTED TO ID) IVPB ONE ×3 (02:42→17:28)
[2019-03-23] MEDS: MEROPENEM 1 GM in DEXTROSE 5%-WATER 100 ML IVPB SCH ×3 (02:43→18:00)
[2019-03-23] MEDS ORDERED: DEXTROSE 5%-WATER 100 ML IVPB ONE ×3 (02:43→17:28)
[2019-03-23] MEDS ORDERED: DEXTROSE 50%-WATER - 25 GM/50 ML VIAL ONE (02:49)
[2019-03-23] MEDS ORDERED: DEXTROSE 50%-WATER - 25 GM/50 ML VIAL IVPUSH ONE ×4 (02:57→07:46)
[2019-03-23] MEDS ORDERED: PROPOFOL 1,000,000 MCG/100 ML VIAL ONE (04:55)
[2019-03-23] MEDS ORDERED: DEXTROSE 50%-WATER 25 GM/50 ML DISP.SYRIN ONE ×2 (05:12→07:59)
[2019-03-23] MEDS ORDERED: DEXTROSE 10%-WATER - 1,000 ML IV SCH (05:15)
[2019-03-23 06:00] LABS: BASO % 0.6 % (0-2.0); EOS % 1.2 % (0-4.5); HEMATOCRIT 27.2 % (32.4-45.2); HEMOGLOBIN 8.9 GM/dL (10.7-15.3); LYMPH % 17.9 % (8-40); MCH 25.5 pg (25.7-33.7); MCHC 32.6 g/dl (32.0-36.0); MEAN CELL VOLUME 78.3 fl (80-96); MONO % 3.3 % (3.8-10.2); PLATELET COUNT 121 K/MM3 (134-434); RBC 3.47 M/mm3 (3.60-5.2); RDW 22.8 % (11.6-15.6); WHITE BLOOD COUNT 12.9 K/mm3 (4.0-10.0)
[2019-03-23 06:28] LABS: ALBUMIN 1.2 g/dl (3.4-5.0); BILIRUBIN,TOTAL 0.2 mg/dL (0.2-1); BLOOD UREA NITROGEN 19.3 mg/dL (7-18); CREATININE 0.5 mg/dL (0.55-1.3); MAGNESIUM 2.2 mg/dL (1.8-2.4); PHOSPHOROUS 2.1 mg/dL (2.5-4.9); POTASSIUM 3.5 mmol/L (3.5-5.1); TOT PROT 4.5 g/dl (6.4-8.2)
[2019-03-23] MEDS: INSULIN SLIDING SCALE (NOVOLOG) 1 VIAL SQ SCH ×4 (07:00→22:03)
[2019-03-23] MEDS: AMINO ACIDS/PROTEIN HYDROLYS 30 ML LIQUID.PKT PO SCH ×3 (08:20→18:00)
[2019-03-23] MEDS ORDERED: SODIUM PHOSPHATE - 0 MM in DEXTROSE 5%-WATER - 250 ML IVPB ONE (08:49)
[2019-03-23] MEDS: ENOXAPARIN NA (PORCINE) 60 MG/0.6 ML DISP.SYRIN SQ SCH (09:12)
[2019-03-23] MEDS: PANTOPRAZOLE SODIUM 40 MG VIAL IVPUSH SCH (09:13)
[2019-03-23] MEDS ORDERED: fentaNYL CITRATE 250 MCG/5 ML VIAL ONE ×2 (09:21→18:55)
[2019-03-23] MEDS: FENTANYL INJECTION 500 MCG in DEXTROSE 5%-WATER - 90 ML IVPB SCH ×2 (09:23→19:05)
--- NOTE | 2019-03-23 09:35 | PN ---
Progress Note, Physician History of Present Illness: 48 year-old female with a PMH significant for Type I IDDM, frequent admissions for DKA, HTN, HLD, CVA with left-sided weakness. Recent hospitalization at [facility] September 2018 for SBO. She is s/p post exploratory lap and resection of illial perforation 03/12. Post op course treated for bacteremia and C-Diff. AC was restarted post op (lovenox 110). She became pulseless on 03/19/19 at 0600 and CPR was initiated. She was given epi and intubated to protect airway. tele showed rapid afib. She had a troponin elevation and her ekg w/o st elevations. she was evaluated by cardiology and remains intubated in the ICU. She continues to have agonal breathing. - Current Medication List Current Medications: Active Medications Acetaminophen (Ofirmev Injection -) 1,000 mg IVPB Q6H PRN PRN Reason: PAIN OR FEVER Last Admin: 03/22/19 16:45 Dose: 1,000 mg Amino Acids (Prosource No Carb Liquid Pkt) 30 ml PO TIDCM [facility] Last Admin: 03/23/19 08:20 Dose: 30 ml Enoxaparin Sodium (Lovenox -) 110 mg SQ DAILY [facility] Last Admin: 03/23/19 09:12 Dose: 110 mg Linezolid (Zyvox 600 Mg Premix Bag (Restricted To Id) -) 600 mg in 300 mls @ 300 mls/hr IVPB Q12H [facility]; Protocol Last Admin: 03/23/19 00:17 Dose: 300 mls/hr Norepinephrine Bitartrate 8, (000 mcg/ Dextrose) 500 mls @ 18.75 mls/hr IV TITR [facility]; Protocol Last Admin: 03/22/19 21:53 Dose: 6 mcg/min, 22.5 mls/hr Fentanyl 500 mcg/ Dextrose 100 mls @ 10 mls/hr IVPB TITR [facility]; Protocol Last Admin: 03/23/19 09:23 Dose: 50 mcg/hr, 10 mls/hr Meropenem 1 gm/ Dextrose 100 mls @ 200 mls/hr IVPB Q8H-IV [facility] Last Admin: 03/23/19 09:13 Dose: 200 mls/hr Propofol (Diprivan -) 1,000,000 mcg in 100 mls @ 2.002 mls/hr IVPB TITR [facility]; Protocol Last Admin: 03/23/19 02:00 Dose: 40 mcg/kg/min, 16.016 mls/hr Dextrose (D10w -) 1,000 mls @ 75 mls/hr IV ASDIR [facility] Last Admin: 03/23/19 05:45 Dose: 75 mls/hr Sodium Phosphate / Dextrose 250 mls @ 62.5 mls/hr IVPB ONCE ONE Stop: 03/23/19 12:48 Insulin Aspart (Novolog Vial Sliding Scale -) 1 vial SQ ACHS [facility]; Protocol Last Admin: 03/22/19 21:56 Dose: 6 units Ondansetron HCl (Zofran Injection) 4 mg IVPUSH Q6H PRN PRN Reason: NAUSEA AND/OR VOMITING Last Admin: 03/14/19 05:07 Dose: 4 mg Pantoprazole Sodium (Protonix Iv) 40 mg IVPUSH DAILY [facility] Last Admin: 03/23/19 09:13 Dose: 40 mg Vancomycin HCl (Vancomycin Oral Solution) 125 mg PO Q6HPO [facility] Last Admin: 03/23/19 05:42 Dose: 125 mg - Objective Vital Signs: Vital Signs Temperature 98.9 F 03/23/19 08:00 Pulse Rate 103 H 03/23/19 08:00 Respiratory Rate 20 03/23/19 08:00 Blood Pressure 106/71 03/23/19 08:00 O2 Sat by Pulse Oximetry (%) 100 03/22/19 22:00 Constitutional: Yes: Other (sedated and intubated) Eyes: Yes: Other (scleral edema noted BL) HENT: Yes: WNL, Atraumatic, Normocephalic Neck: Yes: Other (right SC TLC noted) Cardiovascular: Yes: Tachycardia, Other (on norepi gtt) Respiratory: Yes: Mechanically Ventilated, Other (orally intubated) Gastrointestinal: Yes: Soft, Hypoactive Bowel Sounds ...Rectal Exam: Yes: Other (rectal tube noted with 500cc liquid stool) Genitourinary: Yes: Lott Present Breast(s): Yes: WNL Edema: Yes Edema: LUE: 2+, RUE: 2+, LLE: 2+, RLE: 2+ Peripheral Pulses WNL: No Peripheral Pulses: Left Radial: 1+, Right Radial: 1+, Left Doralis Pedis: 1+, Right Dorsalis Pedis: 1+, Left Femoral: 1+, Right Femoral: 1+ Wound/Incision: Yes: Clean/Dry, Well Approximated Neurological: Yes: Other (sedated on propofol) ...Motor Strength: RUE (RUE movement noted) Psychiatric: Yes: Other (sedated and intuabted) Labs: CBC, BMP 03/23/19 05:10 03/23/19 05:10 INR, PTT INR 1.49 (0.83-1.09) H 03/19/19 23:15 Fibrinogen 359.0 mg/dL (238-498) 03/19/19 23:15 - ....Imaging Chest X-ray: Image Reviewed Problem List - Problems (1) HLD (hyperlipidemia) Assessment/Plan: NPO Code(s): E78.5 - HYPERLIPIDEMIA, UNSPECIFIED (2) Left-sided weakness Assessment/Plan: movement noted to right UE PT when no longer requiring ICU monitoring Code(s): R53.1 - WEAKNESS (3) History of open heart surgery Code(s): Z98.890 - OTHER SPECIFIED POSTPROCEDURAL STATES (4) Acute Crohn's disease Assessment/Plan: history of chrons followed at [facility], was suppose to start infliximab but never followed through Code(s): K50.90 - CROHN'S DISEASE, UNSPECIFIED, WITHOUT COMPLICATIONS (5) Gastroparesis Code(s): K31.84 - GASTROPARESIS (6) Abdominal pain Assessment/Plan: s/p bowel resection with viscous repair general surgery following Code(s): R10.9 - UNSPECIFIED ABDOMINAL PAIN Qualifiers: Abdominal location: generalized Qualified Code(s): R10.84 - Generalized abdominal pain (7) Small bowel obstruction Assessment/Plan: s/p perforated viscus repair dressing changes as per surgical team Code(s): K56.609 - UNSP INTESTNL OBST, UNSP TO PARTIAL VERSUS COMPLETE OBST (8) Cerebrovascular accident (CVA) Assessment/Plan: left sided weakness PT to follow when no longer requiring ICU care Code(s): I63.9 - CEREBRAL INFARCTION, UNSPECIFIED Qualifiers: CVA mechanism: unspecified Qualified Code(s): I63.9 - Cerebral infarction, unspecified (9) Chronic pain Code(s): G89.29 - OTHER CHRONIC PAIN Qualifiers: Chronic pain type: chronic pain syndrome Qualified Code(s): G89.4 - Chronic pain syndrome (10) Prophylactic measure Assessment/Plan: FEN NPO with NGT monitor electrolytes IVF DVT heparin sq Dispo requires ICU care full code palliative care consulted discharge planning Code(s): Z29.9 - ENCOUNTER FOR PROPHYLACTIC MEASURES, UNSPECIFIED (11) Diabetes Assessment/Plan: BGM AC/HS with novolog sliding scale careful glycemic control with multiple episodes of DKA Code(s): E11.9 - TYPE 2 DIABETES MELLITUS WITHOUT COMPLICATIONS (12) Post-op pain Code(s): G89.18 - OTHER ACUTE POSTPROCEDURAL PAIN (13) Perforated abdominal viscus Assessment/Plan: s/p Ex-lap/RAYSHAWN/partial SB and omental resection with anastomosis/washou appreciate surgical and ID consultation c/w abx Code(s): WRS0651 - (14) Hypoxia Assessment/Plan: orally intuabted on mechanical ventilation appreciate ICU level of care Code(s): R09.02 - HYPOXEMIA (15) C. difficile diarrhea Assessment/Plan: Diarrhea has improved, elevated lactate and mild leucocytosis noted. -Continue vancomycin PO -c/w rectal tube Code(s): A04.72 - ENTEROCOLITIS D/T CLOSTRIDIUM DIFFICILE, NOT SPCF RECUR (16) ESBL (extended spectrum beta-lactamase) producing bacteria infection Assessment/Plan: ESBL in wound appreciate ID consultation -Dr. Pimentel c/w linezolid, vanco, sylvester - Cx + LF neg bacilli - UCx + VRE - CDiff Ag and toxin pos - WBC 12 Code(s): A49.9 - BACTERIAL INFECTION, UNSPECIFIED; Z16.12 - EXTENDED SPECTRUM BETA LACTAMASE (ESBL) RESISTANCE (17) Clostridium difficile diarrhea Code(s): A04.72 - ENTEROCOLITIS D/T CLOSTRIDIUM DIFFICILE, NOT SPCF RECUR (18) Hypotension Assessment/Plan: requiring norip to matain MAP>60 titrate as tolerated Code(s): I95.9 - HYPOTENSION, UNSPECIFIED Visit type - Emergency Visit Emergency Visit: Yes ED Registration Date: 03/09/19 Care time: The patient presented to the Emergency Department on the above date and was hospitalized for further evaluation of their emergent condition. - New Patient This patient is new to me today: No - Critical Care Critical Care patient: Yes Total Critical Care Time (in minutes): 45 Critical Care Statement: The care of this patient involved high complexity decision making to prevent further life threatening deterioration of the patient 's condition and/or to evaluate & treat vital organ system(s) failure or risk of failure. - Discharge Referral Referred to [facility] No
[2019-03-23] MEDS ORDERED: PT OWN MED DRAWER 7, Y5N ONE ×3 (10:50→23:42)
--- NOTE | 2019-03-23 11:01 | EKG ---
Test Reason : Blood Pressure : / mmHG Vent. Rate : 143 BPM Atrial Rate : 143 BPM P-R Int : 098 ms QRS Dur : 076 ms QT Int : 272 ms P-R-T Axes : 057 089 -80 degrees QTc Int : 419 ms SINUS TACHYCARDIA WITH SHORT TX NONSPECIFIC ST AND T WAVE ABNORMALITY ABNORMAL ECG WHEN COMPARED WITH ECG OF 19-MAR-2019 06:54, T WAVE INVERSION NO LONGER EVIDENT IN ANTERIOR LEADS Confirmed by Pedro Pablo Lugo ([id number]) on 03/23/2019 11:00:32 AM Referred By: Confirmed By:Pedro Pablo Lugo
[2019-03-23] MEDS ORDERED: POTASSIUM PHOSPHATE 30 MM in DEXTROSE 5%-WATER - 250 ML IVPB ONE (11:20)
--- NOTE | 2019-03-23 11:35 | PN ---
Teaching Attending Note Name of Resident: Howie Chavis ATTENDING PHYSICIAN STATEMENT I saw and evaluated the patient. I reviewed the resident's note and discussed the case with the resident. I agree with the resident's findings and plan as documented. SUBJECTIVE: Patient seen and examined in the ICU. Remains intubated and sedated. AC Mode of vent, 40% FiO2. Remains on NE @ 8 mcq for hemodynamic support. Febrile overnight but afebrile this AM. OBJECTIVE: Intake & Output 03/20/19 03/21/19 03/22/19 03/23/19 23:59 23:59 23:59 23:59 Intake Total 3642.8 2538.1 2257 1560 Output Total 2900 900 1400 1000 Balance 742.8 1638.1 857 560 Weight 145 lb 14.4 oz 146 lb 14.4 oz 147 lb 2 oz 148 lb 8 oz Last Vital Signs Temp Pulse Resp BP Pulse Ox 99.1 F 103 H 19 107/67 100 03/23/19 09:59 03/23/19 09:59 03/23/19 09:41 03/23/19 09:59 03/23/19 09:00 Active Medications Acetaminophen (Ofirmev Injection -) 1,000 mg IVPB Q6H PRN PRN Reason: PAIN OR FEVER Last Admin: 03/22/19 16:45 Dose: 1,000 mg Amino Acids (Prosource No Carb Liquid Pkt) 30 ml PO TIDCM [facility] Last Admin: 03/23/19 08:20 Dose: 30 ml Enoxaparin Sodium (Lovenox -) 110 mg SQ DAILY [facility] Last Admin: 03/23/19 09:12 Dose: 110 mg Linezolid (Zyvox 600 Mg Premix Bag (Restricted To Id) -) 600 mg in 300 mls @ 300 mls/hr IVPB Q12H [facility]; Protocol Last Admin: 03/23/19 00:17 Dose: 300 mls/hr Norepinephrine Bitartrate 8, (000 mcg/ Dextrose) 500 mls @ 18.75 mls/hr IV TITR [facility]; Protocol Last Titration: 03/23/19 09:00 Dose: 8 mcg/min, 30 mls/hr Fentanyl 500 mcg/ Dextrose 100 mls @ 10 mls/hr IVPB TITR [facility]; Protocol Last Admin: 03/23/19 09:23 Dose: 50 mcg/hr, 10 mls/hr Meropenem 1 gm/ Dextrose 100 mls @ 200 mls/hr IVPB Q8H-IV [facility] Last Admin: 03/23/19 09:13 Dose: 200 mls/hr Propofol (Diprivan -) 1,000,000 mcg in 100 mls @ 2.002 mls/hr IVPB TITR [facility]; Protocol Last Admin: 03/23/19 02:00 Dose: 40 mcg/kg/min, 16.016 mls/hr Dextrose (D10w -) 1,000 mls @ 75 mls/hr IV ASDIR [facility] Last Admin: 03/23/19 05:45 Dose: 75 mls/hr Potassium Phosphate 30 mm/ (Dextrose) 260 mls @ 62.5 mls/hr IVPB ONCE ONE Stop: 03/23/19 15:29 Insulin Aspart (Novolog Vial Sliding Scale -) 1 vial SQ ACHS [facility]; Protocol Last Admin: 03/23/19 07:00 Dose: Not Given Ondansetron HCl (Zofran Injection) 4 mg IVPUSH Q6H PRN PRN Reason: NAUSEA AND/OR VOMITING Last Admin: 03/14/19 05:07 Dose: 4 mg Pantoprazole Sodium (Protonix Iv) 40 mg IVPUSH DAILY [facility] Last Admin: 03/23/19 09:13 Dose: 40 mg Vancomycin HCl (Vancomycin Oral Solution) 125 mg PO Q6HPO [facility] Last Admin: 03/23/19 05:42 Dose: 125 mg Gen: Intubated and sedated Heart: S1S2, tachycardia Lungs: intubated, bilateral scattered rhonchi Abd: soft, nontender 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, 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 Laboratory Results - last 24 hr 03/19/19 03/22/19 03/22/19 23:15 14:56 17:11 WBC RBC Hgb Hct MCV MCH MCHC RDW Plt Count MPV Absolute Neuts (auto) Neutrophils % Lymphocytes % Monocytes % Eosinophils % Basophils % Nucleated RBC % Sodium Potassium Chloride Carbon Dioxide Anion Gap BUN Creatinine Est GFR (CKD-EPI)AfAm Est GFR (CKD-EPI)NonAf POC Glucometer 312 433 Random Glucose Calcium Phosphorus Magnesium Total Bilirubin AST ALT Alkaline Phosphatase Total Protein Albumin Blood Type A NEGATIVE Antibody Screen Positive H Crossmatch See Detail 03/22/19 03/23/19 03/23/19 21:34 02:48 03:32 WBC RBC Hgb Hct MCV MCH MCHC RDW Plt Count MPV Absolute Neuts (auto) Neutrophils % Lymphocytes % Monocytes % Eosinophils % Basophils % Nucleated RBC % Sodium Potassium Chloride Carbon Dioxide Anion Gap BUN Creatinine Est GFR (CKD-EPI)AfAm Est GFR (CKD-EPI)NonAf POC Glucometer 253 31 99 Random Glucose Calcium Phosphorus Magnesium Total Bilirubin AST ALT Alkaline Phosphatase Total Protein Albumin Blood Type Antibody Screen Crossmatch 03/23/19 03/23/19 03/23/19 05:10 05:10 05:10 WBC 12.9 H RBC 3.47 L Hgb 8.9 L Hct 27.2 L MCV 78.3 L MCH 25.5 L MCHC 32.6 RDW 22.8 H Plt Count 121 L D MPV 9.0 Absolute Neuts (auto) 9.9 H Neutrophils % 77.0 Lymphocytes % 17.9 Monocytes % 3.3 L D Eosinophils % 1.2 Basophils % 0.6 Nucleated RBC % 0 Sodium 144 Potassium 3.5 Chloride 106 Carbon Dioxide 33 H Anion Gap 5 L BUN 19.3 H Creatinine 0.5 L Est GFR (CKD-EPI)AfAm 131.72 Est GFR (CKD-EPI)NonAf 113.65 POC Glucometer 26 Random Glucose 31 L* Calcium 7.0 L Phosphorus 2.1 L Magnesium 2.2 Total Bilirubin 0.2 AST 21 ALT 11 L Alkaline Phosphatase 229 H Total Protein 4.5 L Albumin 1.2 L Blood Type Antibody Screen Crossmatch 03/23/19 03/23/19 03/23/19 05:45 07:44 09:05 WBC RBC Hgb Hct MCV MCH MCHC RDW Plt Count MPV Absolute Neuts (auto) Neutrophils % Lymphocytes % Monocytes % Eosinophils % Basophils % Nucleated RBC % Sodium Potassium Chloride Carbon Dioxide Anion Gap BUN Creatinine Est GFR (CKD-EPI)AfAm Est GFR (CKD-EPI)NonAf POC Glucometer 84 58 111 Random Glucose Calcium Phosphorus Magnesium Total Bilirubin AST ALT Alkaline Phosphatase Total Protein Albumin Blood Type Antibody Screen Crossmatch 03/23/19 11:25 WBC RBC Hgb Hct MCV MCH MCHC RDW Plt Count MPV Absolute Neuts (auto) Neutrophils % Lymphocytes % Monocytes % Eosinophils % Basophils % Nucleated RBC % Sodium Potassium Chloride Carbon Dioxide Anion Gap BUN Creatinine Est GFR (CKD-EPI)AfAm Est GFR (CKD-EPI)NonAf POC Glucometer 106 Random Glucose Calcium Phosphorus Magnesium Total Bilirubin AST ALT Alkaline Phosphatase Total Protein Albumin Blood Type Antibody Screen Crossmatch ASSESSMENT AND PLAN: CP arrest with suspected JUAQUIN Acute Hypoxic Respiratory Failure Perforated Small Bowel s/p ex-lap/RAYSHAWN/segmental SB resection Crohn's Disease Peritonitis +C diff Colitis Septic Shock Lactic Acidosis Volume Overload h/o PE HTN DM Hyperlipidemia h/o CVA - DC all sedation to assess Neuro exam - Can use Precedex - May need re-imaging if continues to spike fevers - ABX per ID - monitor urine output, creatinine - monitor and replete lytes - Pressors for MAP < 65 - Glycemic control - AC due to PE/DVT history - Wean trials depending on mental status - Requires continued ICU monitoring Dr Otero Critical care time spent in revieiwing chart, evaluating patient and formulating plan 35 min
--- NOTE | 2019-03-23 13:09 | PN ---
Physical Exam: SUBJECTIVE: Patient seen and examined at bedside this AM. Per night team, pt spiked fever of 103 with tachycardia to 140's, resolved with some fentanyl, propofol, and tylenol IV as well as IV motrin. OBJECTIVE: Vital Signs Period Temp Pulse Resp BP Sys/Rapp Pulse Ox Last 24 Hr 98.2 F-102.5 F 101-148 19-36 78-124/50-72 100-100 GENERAL: The patient is intubated and sedated. NECK: supple. LUNGS: Breath sounds ronchorous HEART: Regular rate and rhythm, S1, S2 without murmur, rub or gallop. ABDOMEN: Soft, nontender, nondistended, stitches in place no drainage from abdominal stitches. EXTREMITIES: 2+ pulses, warm, well-perfused, no edema. SKIN: Warm, dry, no rashes or lesions noted Laboratory Results - last 24 hr 03/19/19 03/22/19 03/22/19 23:15 14:56 17:11 WBC RBC Hgb Hct MCV MCH MCHC RDW Plt Count MPV Absolute Neuts (auto) Neutrophils % Lymphocytes % Monocytes % Eosinophils % Basophils % Nucleated RBC % Sodium Potassium Chloride Carbon Dioxide Anion Gap BUN Creatinine Est GFR (CKD-EPI)AfAm Est GFR (CKD-EPI)NonAf POC Glucometer 312 433 Random Glucose Calcium Phosphorus Magnesium Total Bilirubin AST ALT Alkaline Phosphatase Total Protein Albumin Blood Type A NEGATIVE Antibody Screen Positive H Crossmatch See Detail 03/22/19 03/23/19 03/23/19 21:34 02:48 03:32 WBC RBC Hgb Hct MCV MCH MCHC RDW Plt Count MPV Absolute Neuts (auto) Neutrophils % Lymphocytes % Monocytes % Eosinophils % Basophils % Nucleated RBC % Sodium Potassium Chloride Carbon Dioxide Anion Gap BUN Creatinine Est GFR (CKD-EPI)AfAm Est GFR (CKD-EPI)NonAf POC Glucometer 253 31 99 Random Glucose Calcium Phosphorus Magnesium Total Bilirubin AST ALT Alkaline Phosphatase Total Protein Albumin Blood Type Antibody Screen Crossmatch 03/23/19 03/23/19 03/23/19 05:10 05:10 05:10 WBC 12.9 H RBC 3.47 L Hgb 8.9 L Hct 27.2 L MCV 78.3 L MCH 25.5 L MCHC 32.6 RDW 22.8 H Plt Count 121 L D MPV 9.0 Absolute Neuts (auto) 9.9 H Neutrophils % 77.0 Lymphocytes % 17.9 Monocytes % 3.3 L D Eosinophils % 1.2 Basophils % 0.6 Nucleated RBC % 0 Sodium 144 Potassium 3.5 Chloride 106 Carbon Dioxide 33 H Anion Gap 5 L BUN 19.3 H Creatinine 0.5 L Est GFR (CKD-EPI)AfAm 131.72 Est GFR (CKD-EPI)NonAf 113.65 POC Glucometer 26 Random Glucose 31 L* Calcium 7.0 L Phosphorus 2.1 L Magnesium 2.2 Total Bilirubin 0.2 AST 21 ALT 11 L Alkaline Phosphatase 229 H Total Protein 4.5 L Albumin 1.2 L Blood Type Antibody Screen Crossmatch 03/23/19 03/23/19 03/23/19 05:45 07:44 09:05 WBC RBC Hgb Hct MCV MCH MCHC RDW Plt Count MPV Absolute Neuts (auto) Neutrophils % Lymphocytes % Monocytes % Eosinophils % Basophils % Nucleated RBC % Sodium Potassium Chloride Carbon Dioxide Anion Gap BUN Creatinine Est GFR (CKD-EPI)AfAm Est GFR (CKD-EPI)NonAf POC Glucometer 84 58 111 Random Glucose Calcium Phosphorus Magnesium Total Bilirubin AST ALT Alkaline Phosphatase Total Protein Albumin Blood Type Antibody Screen Crossmatch 03/23/19 11:25 WBC RBC Hgb Hct MCV MCH MCHC RDW Plt Count MPV Absolute Neuts (auto) Neutrophils % Lymphocytes % Monocytes % Eosinophils % Basophils % Nucleated RBC % Sodium Potassium Chloride Carbon Dioxide Anion Gap BUN Creatinine Est GFR (CKD-EPI)AfAm Est GFR (CKD-EPI)NonAf POC Glucometer 106 Random Glucose Calcium Phosphorus Magnesium Total Bilirubin AST ALT Alkaline Phosphatase Total Protein Albumin Blood Type Antibody Screen Crossmatch Active Medications Generic Name Dose Route Start Last Admin Trade Name Freq PRN Reason Stop Dose Admin Acetaminophen 1,000 mg 03/22/19 16:17 03/22/19 16:45 Ofirmev Injection - IVPB 1,000 mg Q6H PRN Administration PAIN OR FEVER Amino Acids 30 ml 03/19/19 08:00 03/23/19 12:00 Prosource No Carb Liquid Pkt PO 30 ml TIDCM [facility] Administration Enoxaparin Sodium 110 mg 03/17/19 13:00 03/23/19 09:12 Lovenox - SQ 110 mg DAILY [facility] Administration Linezolid 600 mg in 300 mls @ 300 mls/hr 03/18/19 11:45 03/23/19 11:59 Zyvox 600 Mg Premix Bag (Restricted To Id) - IVPB 300 mls/hr Q12H [facility] Administration Protocol Norepinephrine Bitartrate 8, 500 mls @ 18.75 mls/hr 03/19/19 21:15 03/23/19 09:00 000 mcg/ Dextrose IV 8 mcg/min TITR [facility] 30 mls/hr Titration Protocol 5 MCG/MIN Fentanyl 500 mcg/ Dextrose 100 mls @ 10 mls/hr 03/20/19 09:30 03/23/19 09:23 IVPB 50 mcg/hr TITR [facility] 10 mls/hr Administration Protocol 50 MCG/HR Meropenem 1 gm/ Dextrose 100 mls @ 200 mls/hr 03/21/19 18:00 03/23/19 09:13 IVPB 200 mls/hr Q8H-IV [facility] Administration Propofol 1,000,000 mcg in 100 mls @ 2.002 mls/hr 03/22/19 19:30 03/23/19 10: 45 Diprivan - IVPB 0 mcg/kg/min TITR [facility] 0 mls/hr Titration Protocol 5 MCG/KG/MIN Dextrose 1,000 mls @ 75 mls/hr 03/23/19 05:15 03/23/19 05:45 D10w - IV 75 mls/hr ASDIR [facility] Administration Potassium Phosphate 30 mm/ 260 mls @ 43.333 mls/hr 03/23/19 11:20 Dextrose IVPB 03/23/19 17:19 ONCE ONE Insulin Aspart 1 vial 03/22/19 16:30 03/23/19 11:00 Novolog Vial Sliding Scale - SQ Not Given ACHS [facility] Protocol Ondansetron HCl 4 mg 03/11/19 20:31 03/14/19 05:07 Zofran Injection IVPUSH 4 mg Q6H PRN Administration NAUSEA AND/OR VOMITING Pantoprazole Sodium 40 mg 03/20/19 10:00 03/23/19 09:13 Protonix Iv IVPUSH 40 mg DAILY [facility] Administration Vancomycin HCl 125 mg 03/15/19 18:00 03/23/19 11:59 Vancomycin Oral Solution PO 125 mg Q6HPO [facility] Administration ASSESSMENT/PLAN: 48F PMH IDDM, PE on xarelto, frequent DKA, HTN, HLD, CVA w/ left sided weakness , recent hospitalization at [facility] September 2018 admitted to ICU for SBO. Developed pneumoperitoneum s/p ex-lap. POD #10 Neuro - sedated - intubated - unable to wean off sedation to assess mental status, switching sedative from preed - sedation vacation attempted, patient responsive only to light, unable to follow commands and unable to respond to pain or noxious stimuli - Tylenol for pain/fever ctrl CV - hx of transient a-fib with RVR - sinus tachy 118 - No longer hypotensive - Maintain MAP >65 - continue pressors - if persistent a-fib start amiodarone Respiratory - Patient remains intubated tried to wean sedation but wasnt able to bc of tachycardia and tachypnea. - Lasix IV 40 BID - monitor resp status - sedation vacation attempted, patient began having increased work of breathing and was placed back on sedation GI - Crohn's flair likely, pneumoperitoneum s/p ex-lap - c/w linezolid - GI recs appreciated continuing w/ C diff management - confirmed with surgery regarding CT abdomen and pelvis with contrast via NG tube and IV contrast to assess for a fluid collection/other cause of infection. ID-> C diff - Per Dr. Pimentel we will be continuing linezolid, vanco, sylvester - Cx + LF neg bacilli - UCx + VRE - CDiff Ag and toxin pos - WBC 12.9 Endocrine-> Hypoglycemia - d/c levemir - D10W - D50 vials given IVP 25mg for 31 and 58 glucoses. FEN - lasix given, on D10W 75cc/hr to help with hypoglycemia - Lytes in AM, replete PRN - Phos repleted - Monitor I/Os - Monitor UrO, Cr PPx: Lovenox 110, SCDs Visit type - Emergency Visit Emergency Visit: Yes ED Registration Date: 03/09/19 Care time: The patient presented to the Emergency Department on the above date and was hospitalized for further evaluation of their emergent condition. - New Patient This patient is new to me today: No - Critical Care Critical Care patient: Yes Total Critical Care Time (in minutes): 35 Critical Care Statement: The care of this patient involved high complexity decision making to prevent further life threatening deterioration of the patient 's condition and/or to evaluate & treat vital organ system(s) failure or risk of failure. - Discharge Referral Referred to [facility] No
--- NOTE | 2019-03-23 13:33 | PN ---
Progress Note, Physician History of Present Illness: patient still continues to be intubated still not doing well on pressors - Current Medication List Current Medications: Active Medications Acetaminophen (Ofirmev Injection -) 1,000 mg IVPB Q6H PRN PRN Reason: PAIN OR FEVER Last Admin: 03/22/19 16:45 Dose: 1,000 mg Amino Acids (Prosource No Carb Liquid Pkt) 30 ml PO TIDCM [facility] Last Admin: 03/23/19 12:00 Dose: 30 ml Enoxaparin Sodium (Lovenox -) 110 mg SQ DAILY [facility] Last Admin: 03/23/19 09:12 Dose: 110 mg Linezolid (Zyvox 600 Mg Premix Bag (Restricted To Id) -) 600 mg in 300 mls @ 300 mls/hr IVPB Q12H [facility]; Protocol Last Admin: 03/23/19 11:59 Dose: 300 mls/hr Norepinephrine Bitartrate 8, (000 mcg/ Dextrose) 500 mls @ 18.75 mls/hr IV TITR [facility]; Protocol Last Titration: 03/23/19 09:00 Dose: 8 mcg/min, 30 mls/hr Fentanyl 500 mcg/ Dextrose 100 mls @ 10 mls/hr IVPB TITR [facility]; Protocol Last Admin: 03/23/19 09:23 Dose: 50 mcg/hr, 10 mls/hr Meropenem 1 gm/ Dextrose 100 mls @ 200 mls/hr IVPB Q8H-IV [facility] Last Admin: 03/23/19 09:13 Dose: 200 mls/hr Propofol (Diprivan -) 1,000,000 mcg in 100 mls @ 2.002 mls/hr IVPB TITR [facility]; Protocol Last Titration: 03/23/19 10:45 Dose: 0 mcg/kg/min, 0 mls/hr Dextrose (D10w -) 1,000 mls @ 75 mls/hr IV ASDIR [facility] Last Admin: 03/23/19 05:45 Dose: 75 mls/hr Potassium Phosphate 30 mm/ (Dextrose) 260 mls @ 43.333 mls/hr IVPB ONCE ONE Stop: 03/23/19 17:19 Dexmedetomidine HCl 200 mcg/ (Sodium Chloride) 50 mls @ 3.36 mls/hr IVPB TITR [facility] Insulin Aspart (Novolog Vial Sliding Scale -) 1 vial SQ ACHS [facility]; Protocol Last Admin: 03/23/19 11:00 Dose: Not Given Ondansetron HCl (Zofran Injection) 4 mg IVPUSH Q6H PRN PRN Reason: NAUSEA AND/OR VOMITING Last Admin: 03/14/19 05:07 Dose: 4 mg Pantoprazole Sodium (Protonix Iv) 40 mg IVPUSH DAILY [facility] Last Admin: 03/23/19 09:13 Dose: 40 mg Vancomycin HCl (Vancomycin Oral Solution) 125 mg PO Q6HPO [facility] Last Admin: 03/23/19 11:59 Dose: 125 mg - Objective Vital Signs: Vital Signs Temperature 99.1 F 03/23/19 09:59 Pulse Rate 103 H 03/23/19 09:59 Respiratory Rate 28 H 03/23/19 12:29 Blood Pressure 107/67 03/23/19 09:59 O2 Sat by Pulse Oximetry (%) 100 03/23/19 09:00 Constitutional: Yes: Other Cardiovascular: Yes: S1, S2 Respiratory: Yes: Intubated, Mechanically Ventilated Gastrointestinal: Yes: Normal Bowel Sounds, Soft Musculoskeletal: Yes: WNL Extremities: Yes: WNL Neurological: Yes: Other Psychiatric: Yes: Other Labs: CBC, BMP 03/23/19 05:10 03/23/19 05:10 INR, PTT INR 1.49 (0.83-1.09) H 03/19/19 23:15 Fibrinogen 359.0 mg/dL (238-498) 03/19/19 23:15 Assessment/Plan SBO versus flair of inflammatory bowel disease R/O GI source of infection Type I IDDM, PE HTN HLD CVA with mild left-sided weakness cdiff plan continue abx ventilator nutrition close watch rest as per icu trend wbc prognosis guarded cc 40 min
--- NOTE | 2019-03-23 13:35 | PN ---
Progress Note, Physician History of Present Illness: continues to be intubated sedated pressors decreasing dirrhoea - Current Medication List Current Medications: Active Medications Acetaminophen (Ofirmev Injection -) 1,000 mg IVPB Q6H PRN PRN Reason: PAIN OR FEVER Last Admin: 03/22/19 16:45 Dose: 1,000 mg Amino Acids (Prosource No Carb Liquid Pkt) 30 ml PO TIDCM [facility] Last Admin: 03/23/19 12:00 Dose: 30 ml Enoxaparin Sodium (Lovenox -) 110 mg SQ DAILY [facility] Last Admin: 03/23/19 09:12 Dose: 110 mg Linezolid (Zyvox 600 Mg Premix Bag (Restricted To Id) -) 600 mg in 300 mls @ 300 mls/hr IVPB Q12H [facility]; Protocol Last Admin: 03/23/19 11:59 Dose: 300 mls/hr Norepinephrine Bitartrate 8, (000 mcg/ Dextrose) 500 mls @ 18.75 mls/hr IV TITR [facility]; Protocol Last Titration: 03/23/19 09:00 Dose: 8 mcg/min, 30 mls/hr Fentanyl 500 mcg/ Dextrose 100 mls @ 10 mls/hr IVPB TITR [facility]; Protocol Last Admin: 03/23/19 09:23 Dose: 50 mcg/hr, 10 mls/hr Meropenem 1 gm/ Dextrose 100 mls @ 200 mls/hr IVPB Q8H-IV [facility] Last Admin: 03/23/19 09:13 Dose: 200 mls/hr Propofol (Diprivan -) 1,000,000 mcg in 100 mls @ 2.002 mls/hr IVPB TITR [facility]; Protocol Last Titration: 03/23/19 10:45 Dose: 0 mcg/kg/min, 0 mls/hr Dextrose (D10w -) 1,000 mls @ 75 mls/hr IV ASDIR [facility] Last Admin: 03/23/19 05:45 Dose: 75 mls/hr Potassium Phosphate 30 mm/ (Dextrose) 260 mls @ 43.333 mls/hr IVPB ONCE ONE Stop: 03/23/19 17:19 Dexmedetomidine HCl 200 mcg/ (Sodium Chloride) 50 mls @ 3.36 mls/hr IVPB TITR [facility] Insulin Aspart (Novolog Vial Sliding Scale -) 1 vial SQ ACHS [facility]; Protocol Last Admin: 03/23/19 11:00 Dose: Not Given Ondansetron HCl (Zofran Injection) 4 mg IVPUSH Q6H PRN PRN Reason: NAUSEA AND/OR VOMITING Last Admin: 03/14/19 05:07 Dose: 4 mg Pantoprazole Sodium (Protonix Iv) 40 mg IVPUSH DAILY [facility] Last Admin: 03/23/19 09:13 Dose: 40 mg Vancomycin HCl (Vancomycin Oral Solution) 125 mg PO Q6HPO [facility] Last Admin: 03/23/19 11:59 Dose: 125 mg - Objective Vital Signs: Vital Signs Temperature 99.1 F 03/23/19 09:59 Pulse Rate 103 H 03/23/19 09:59 Respiratory Rate 28 H 03/23/19 12:29 Blood Pressure 107/67 03/23/19 09:59 O2 Sat by Pulse Oximetry (%) 100 03/23/19 09:00 Constitutional: Yes: Other Cardiovascular: Yes: Tachycardia, S1, S2 Respiratory: Yes: Intubated, Mechanically Ventilated Gastrointestinal: Yes: Normal Bowel Sounds, Soft, Other (dirrhoea) Musculoskeletal: Yes: WNL Extremities: Yes: WNL Neurological: Yes: Other Labs: CBC, BMP 03/23/19 05:10 03/23/19 05:10 INR, PTT INR 1.49 (0.83-1.09) H 03/19/19 23:15 Fibrinogen 359.0 mg/dL (238-498) 03/19/19 23:15 Assessment/Plan SBO versus flair of inflammatory bowel disease R/O GI source of infection Type I IDDM, PE HTN HLD CVA with mild left-sided weakness cdiff plan continue abx ventilator nutrition close watch rest as per icu trend wbc wean pressors as tolerated prognosis guarded cc 40 min
[2019-03-23] MEDS: DEXMEDETOMIDINE HCL 200 MCG in SODIUM CHLORIDE 48 ML IVPB SCH ×2 (15:00→19:29)
--- NOTE | 2019-03-23 15:57 | PN.GI ---
GI Progress Note Subjective: Remains intubated. On pressors 500cc liquid stool emptied from fecal bag today - Objective Vital Signs: Vital Signs Temperature 99.1 F 03/23/19 12:00 Pulse Rate 122 H 03/23/19 14:00 Respiratory Rate 28 H 03/23/19 12:29 Blood Pressure 129/70 03/23/19 14:00 O2 Sat by Pulse Oximetry (%) 100 03/23/19 09:00 Constitutional: Calm Eyes: No: Sclera Icterus Cardiovascular: Yes: Tachycardia Respiratory: Yes: Tachypnea Gastrointestinal Inspection: No: Distention ...Auscultate: Yes: Hypoactive Bowel Sounds Neurological: Yes: Other (Sedated) Labs: CBC, BMP 03/23/19 05:10 03/23/19 05:10 INR, PTT INR 1.49 (0.83-1.09) H 03/19/19 23:15 Fibrinogen 359.0 mg/dL (238-498) 03/19/19 23:15 Hepatic Panel Total Bilirubin 0.2 mg/dL (0.2-1) 03/23/19 05:10 AST 21 U/L (15-37) 03/23/19 05:10 ALT 11 U/L (13-61) L 03/23/19 05:10 Alkaline Phosphatase 229 U/L (45-117) H 03/23/19 05:10 Albumin 1.2 g/dl (3.4-5.0) L 03/23/19 05:10 Problem List - Problems (1) Small bowel perforation Assessment/Plan: Post op care per surgery Called Dr. Henderson's office ([phone]). Left message with staff to have him call me to further discuss Crohn's diagnosis Supportive care per ICU team Code(s): K63.1 - PERFORATION OF INTESTINE (NONTRAUMATIC) (2) Clostridium difficile diarrhea Assessment/Plan: On Vancocin 125mg Q 6 hours via OGT Ideally, should be off PPI therapy, however, in this setting with SBS secondary to her small bowel surgeries, It may help with decreasing gastric secretion production / diarrhea. Code(s): A04.72 - ENTEROCOLITIS D/T CLOSTRIDIUM DIFFICILE, NOT SPCF RECUR
[2019-03-23] MEDS ORDERED: PROPOFOL 20 ML ONE (20:39)
[2019-03-23] MEDS ORDERED: PROPOFOL 200 MG/20 ML VIAL IVPB ONE (22:01)
[2019-03-23] MEDS: NOREPINEPHRINE BITARTRATE 8,000 MCG in DEXTROSE 5%-WATER - 492 ML IV SCH (22:04)
[2019-03-24] MEDS: DEXMEDETOMIDINE HCL 200 MCG in SODIUM CHLORIDE 48 ML IVPB SCH (00:30)
[2019-03-24] MEDS: VANCOMYCIN 250 MG/5 ML ORAL SOLUTION PO SCH ×4 (00:40→17:29)
[2019-03-24] MEDS: PROPOFOL 1,000,000 MCG/100 ML VIAL IVPB SCH ×4 (00:41→13:21)
[2019-03-24] MEDS ORDERED: DEXTROSE 5%-WATER 100 ML IVPB ONE ×3 (00:51→17:14)
[2019-03-24] MEDS ORDERED: MEROPENEM 1 GM VIAL (RESTRICTED TO ID) IVPB ONE ×3 (00:51→17:14)
[2019-03-24] MEDS: MEROPENEM 1 GM in DEXTROSE 5%-WATER 100 ML IVPB SCH ×3 (01:30→17:29)
[2019-03-24] MEDS ORDERED: fentaNYL CITRATE 250 MCG/5 ML VIAL ONE ×2 (02:18→14:06)
[2019-03-24] MEDS: FENTANYL INJECTION 500 MCG in DEXTROSE 5%-WATER - 90 ML IVPB SCH ×2 (02:24→14:08)
[2019-03-24 06:08] LABS: BASO % 0.9 % (0-2.0); HEMATOCRIT 24.2 % (32.4-45.2); HEMOGLOBIN 7.9 GM/dL (10.7-15.3); LYMPH % 20.4 % (8-40); MCH 25.9 pg (25.7-33.7); MCHC 32.9 g/dl (32.0-36.0); MEAN CELL VOLUME 78.9 fl (80-96); MEAN PLT VOLUME 8.1 fl (7.5-11.1); MONO % 4.3 % (3.8-10.2); NEUT % 71.4 % (42.8-82.8); PLATELET COUNT 95 K/MM3 (134-434); RBC 3.06 M/mm3 (3.60-5.2); RDW 23.2 % (11.6-15.6); WHITE BLOOD COUNT 7.9 K/mm3 (4.0-10.0)
[2019-03-24] MEDS: INSULIN SLIDING SCALE (NOVOLOG) 1 VIAL SQ SCH ×4 (06:09→21:59)
[2019-03-24 06:26] LABS: ALBUMIN 1.1 g/dl (3.4-5.0); BILIRUBIN,TOTAL 0.4 mg/dL (0.2-1); BLOOD UREA NITROGEN 14.5 mg/dL (7-18); CREATININE 0.4 mg/dL (0.55-1.3); MAGNESIUM 1.7 mg/dL (1.8-2.4); POTASSIUM 3.8 mmol/L (3.5-5.1); TOT PROT 3.9 g/dl (6.4-8.2)
[2019-03-24 06:29] LABS: CALCIUM 6.8 mg/dL (8.5-10.1)
[2019-03-24] MEDS ORDERED: MAGNESIUM SULF 50% (8.12 MEQ/2 ML-1 GM VIAL) IVPB ONE (07:46)
[2019-03-24] MEDS ORDERED: PT OWN MED DRAWER 7, Y5N ONE ×2 (08:22→17:14)
--- NOTE | 2019-03-24 08:26 | PN ---
Progress Note, Physician Chief Complaint: orally intuabted and sedated History of Present Illness: 48 year-old female with a PMH significant for Type I IDDM, frequent admissions for DKA, HTN, HLD, CVA with left-sided weakness. Recent hospitalization at [facility] September 2018 for SBO. She is s/p post exploratory lap and resection of illial perforation 03/12. Post op course treated for bacteremia and C-Diff. AC was restarted post op (lovenox 110). She became pulseless on 03/19/19 at 0600 and CPR was initiated. She was given epi and intubated to protect airway. tele showed rapid afib. She had a troponin elevation and her ekg w/o st elevations. she was evaluated by cardiology and remains intubated in the ICU. She continues to have agonal breathing. - Current Medication List Current Medications: Active Medications Acetaminophen (Ofirmev Injection -) 1,000 mg IVPB Q6H PRN PRN Reason: PAIN OR FEVER Last Admin: 03/22/19 16:45 Dose: 1,000 mg Amino Acids (Prosource No Carb Liquid Pkt) 30 ml PO TIDCM [facility] Last Admin: 03/23/19 18:00 Dose: 30 ml Enoxaparin Sodium (Lovenox -) 110 mg SQ DAILY [facility] Last Admin: 03/23/19 09:12 Dose: 110 mg Linezolid (Zyvox 600 Mg Premix Bag (Restricted To Id) -) 600 mg in 300 mls @ 300 mls/hr IVPB Q12H [facility]; Protocol Last Admin: 03/23/19 23:43 Dose: 300 mls/hr Norepinephrine Bitartrate 8, (000 mcg/ Dextrose) 500 mls @ 18.75 mls/hr IV TITR [facility]; Protocol Last Admin: 03/23/19 22:04 Dose: Not Given Fentanyl 500 mcg/ Dextrose 100 mls @ 10 mls/hr IVPB TITR [facility]; Protocol Last Admin: 03/24/19 02:24 Dose: 50 mcg/hr, 10 mls/hr Meropenem 1 gm/ Dextrose 100 mls @ 200 mls/hr IVPB Q8H-IV [facility] Last Admin: 03/24/19 01:30 Dose: 200 mls/hr Propofol (Diprivan -) 1,000,000 mcg in 100 mls @ 2.002 mls/hr IVPB TITR [facility]; Protocol Last Admin: 03/24/19 00:42 Dose: 15 mcg/kg/min, 6.006 mls/hr Dexmedetomidine HCl 200 mcg/ (Sodium Chloride) 50 mls @ 3.36 mls/hr IVPB TITR [facility] Last Admin: 03/24/19 00:30 Dose: 0.8 mcg/kg/hr, 13.47 mls/hr Propofol (Diprivan -) 1,000,000 mcg in 100 mls @ 4.041 mls/hr IVPB TITR [facility]; Protocol Last Admin: 03/24/19 00:43 Dose: Not Given Insulin Aspart (Novolog Vial Sliding Scale -) 1 vial SQ ACHS [facility]; Protocol Last Admin: 03/24/19 06:09 Dose: 2 units Ondansetron HCl (Zofran Injection) 4 mg IVPUSH Q6H PRN PRN Reason: NAUSEA AND/OR VOMITING Last Admin: 03/14/19 05:07 Dose: 4 mg Pantoprazole Sodium (Protonix Iv) 40 mg IVPUSH DAILY [facility] Last Admin: 03/23/19 09:13 Dose: 40 mg Vancomycin HCl (Vancomycin Oral Solution) 125 mg PO Q6HPO [facility] Last Admin: 03/24/19 06:08 Dose: 125 mg - Objective Vital Signs: Vital Signs Temperature 98.6 F 03/24/19 06:00 Pulse Rate 52 L 03/24/19 08:07 Respiratory Rate 26 H 03/24/19 08:07 Blood Pressure 102/62 03/24/19 08:07 O2 Sat by Pulse Oximetry (%) 100 03/23/19 22:00 Constitutional: Yes: Other (sedated and intubated) Eyes: Yes: WNL, Conjunctiva Clear HENT: Yes: WNL, Atraumatic, Normocephalic Neck: Yes: WNL, Supple, Trachea Midline Cardiovascular: Yes: Regular Rate and Rhythm, Tachycardia Respiratory: Yes: Intubated (orally on AC) Gastrointestinal: Yes: Normal Bowel Sounds, Soft, Other (TF, rectal tube) ...Rectal Exam: Yes: Deferred Genitourinary: Yes: Lott Present Breast(s): Yes: WNL Musculoskeletal: Yes: Muscle Weakness Edema: Yes Edema: LUE: 2+, RUE: 2+, LLE: 2+, RLE: 2+ Peripheral Pulses WNL: Yes Peripheral Pulses: Left Radial: 1+, Right Radial: 1+, Left Doralis Pedis: 1+, Right Dorsalis Pedis: 1+, Left Femoral: 1+, Right Femoral: 1+ Integumentary: Yes: Bruising Wound/Incision: Yes: Unapproximated (dihescense at distal portion of abd incision) Neurological: Yes: Other (sedated on dexmetatomidine) ...Motor Strength: RUE (noted movement) Psychiatric: Yes: Other (sedated on precedex) Labs: CBC, BMP 03/24/19 05:40 03/24/19 05:40 INR, PTT INR 1.49 (0.83-1.09) H 03/19/19 23:15 Fibrinogen 359.0 mg/dL (238-498) 03/19/19 23:15 Problem List - Problems (1) HLD (hyperlipidemia) Code(s): E78.5 - HYPERLIPIDEMIA, UNSPECIFIED (2) Left-sided weakness Assessment/Plan: movement noted to right UE PT when no longer requiring ICU monitoring Code(s): R53.1 - WEAKNESS (3) History of open heart surgery Code(s): Z98.890 - OTHER SPECIFIED POSTPROCEDURAL STATES (4) Acute Crohn's disease Assessment/Plan: history of chrons followed at [facility], was suppose to start infliximab but never followed through off steroids Code(s): K50.90 - CROHN'S DISEASE, UNSPECIFIED, WITHOUT COMPLICATIONS (5) Gastroparesis Code(s): K31.84 - GASTROPARESIS (6) Abdominal pain Assessment/Plan: s/p bowel resection with viscous repair general surgery following wound dihensence noted at distal portion dressing changes as per surgery Code(s): R10.9 - UNSPECIFIED ABDOMINAL PAIN Qualifiers: Abdominal location: generalized Qualified Code(s): R10.84 - Generalized abdominal pain (7) Small bowel obstruction Assessment/Plan: s/p perforated viscus repair dressing changes as per surgical team Code(s): K56.609 - UNSP INTESTNL OBST, UNSP TO PARTIAL VERSUS COMPLETE OBST (8) Cerebrovascular accident (CVA) Assessment/Plan: left sided weakness PT to follow when no longer requiring ICU care Code(s): I63.9 - CEREBRAL INFARCTION, UNSPECIFIED Qualifiers: CVA mechanism: unspecified Qualified Code(s): I63.9 - Cerebral infarction, unspecified (9) Chronic pain Assessment/Plan: sedate with precedex Code(s): G89.29 - OTHER CHRONIC PAIN Qualifiers: Chronic pain type: chronic pain syndrome Qualified Code(s): G89.4 - Chronic pain syndrome (10) Prophylactic measure Assessment/Plan: FEN NPO with NGT monitor electrolytes IVF DVT heparin sq Dispo requires ICU care full code palliative care following-HCP being sent from [facility] prognosis critical discharge planning Code(s): Z29.9 - ENCOUNTER FOR PROPHYLACTIC MEASURES, UNSPECIFIED (11) Diabetes Assessment/Plan: BGM q4h careful glycemic control with multiple episodes of DKA c/w D10 levemir stopped Code(s): E11.9 - TYPE 2 DIABETES MELLITUS WITHOUT COMPLICATIONS (12) Post-op pain Code(s): G89.18 - OTHER ACUTE POSTPROCEDURAL PAIN (13) Perforated abdominal viscus Assessment/Plan: s/p Ex-lap/RAYSHAWN/partial SB and omental resection with anastomosis/washou appreciate surgical and ID consultation c/w abx Code(s): CNU5496 - (14) Hypoxia Assessment/Plan: orally intuabted on mechanical ventilation attempt weaning trial if more responsive off sedation appreciate ICU level of care Code(s): R09.02 - HYPOXEMIA (15) C. difficile diarrhea Assessment/Plan: Diarrhea has improved, elevated lactate and mild leucocytosis noted. -Continue vancomycin PO -c/w rectal tube Code(s): A04.72 - ENTEROCOLITIS D/T CLOSTRIDIUM DIFFICILE, NOT SPCF RECUR (16) ESBL (extended spectrum beta-lactamase) producing bacteria infection Assessment/Plan: ESBL in wound appreciate ID consultation -Dr. Pimentel c/w linezolid, vanco, sylvester - Cx + LF neg bacilli - UCx + VRE - CDiff Ag and toxin pos - WBC down to 7.9 Code(s): A49.9 - BACTERIAL INFECTION, UNSPECIFIED; Z16.12 - EXTENDED SPECTRUM BETA LACTAMASE (ESBL) RESISTANCE (17) Clostridium difficile diarrhea Code(s): A04.72 - ENTEROCOLITIS D/T CLOSTRIDIUM DIFFICILE, NOT SPCF RECUR (18) Hypotension Assessment/Plan: norepi gtt titrate to off maintain MAP>60 titrate as tolerated Problems reviewed: Yes Code(s): I95.9 - HYPOTENSION, UNSPECIFIED (19) Admitted to intensive care unit Assessment/Plan: appreciate ICU level of care Code(s): Z78.9 - OTHER SPECIFIED HEALTH STATUS Visit type - Emergency Visit Emergency Visit: Yes ED Registration Date: 03/09/19 Care time: The patient presented to the Emergency Department on the above date and was hospitalized for further evaluation of their emergent condition. - New Patient This patient is new to me today: No - Critical Care Critical Care patient: Yes Total Critical Care Time (in minutes): 40 Critical Care Statement: The care of this patient involved high complexity decision making to prevent further life threatening deterioration of the patient 's condition and/or to evaluate & treat vital organ system(s) failure or risk of failure. - Discharge Referral Referred to [facility] Med P.C.: No
[2019-03-24] MEDS ORDERED: SODIUM PHOSPHATE - 0 MM in DEXTROSE 5%-WATER - 250 ML IVPB ONE (08:32)
[2019-03-24] MEDS: PANTOPRAZOLE SODIUM 40 MG VIAL IVPUSH SCH (09:25)
[2019-03-24] MEDS: ENOXAPARIN NA (PORCINE) 60 MG/0.6 ML DISP.SYRIN SQ SCH (09:26)
[2019-03-24] MEDS: AMINO ACIDS/PROTEIN HYDROLYS 30 ML LIQUID.PKT PO SCH ×3 (09:27→17:29)
[2019-03-24 11:18] LABS: ANISOCYTOSIS 1+; MACROCYTOSIS 1+; OVALOCYTE 1+; PLATELET ESTIMATE DECREASED; TARGET CELLS 2+
--- NOTE | 2019-03-24 12:07 | PN ---
Teaching Attending Note Name of Resident: Howie Chavis ATTENDING PHYSICIAN STATEMENT I saw and evaluated the patient. I reviewed the resident's note and discussed the case with the resident. I agree with the resident's findings and plan as documented. SUBJECTIVE: Pt seen and examined in the ICU. Remains intubated, sedated. Tachypneic off sedation. Off pressors yesterday. Reports of coffee ground contents overnight but none this AM. OBJECTIVE: Vital Signs Period Temp Pulse Resp BP Sys/Rapp Pulse Ox Last 24 Hr 98.6 F-99.9 F 52-122 20-31 91-148/56-87 100-100 Intake & Output 03/21/19 03/22/19 03/23/19 03/24/19 23:59 23:59 23:59 23:59 Intake Total 2538.1 2257 4523 1231 Output Total 900 1400 2700 600 Balance 1638.1 857 1823 631 Weight 66.633 kg 66.735 kg 67.358 kg 65.402 kg Gen: intubated, sedated, tachypneic Heart: RRR Lung: scattered rhonchi Abd: soft, nontender Ext: no edema CBC, BMP 03/24/19 05:40 03/24/19 05:40 Active Medications Acetaminophen (Ofirmev Injection -) 1,000 mg IVPB Q6H PRN PRN Reason: PAIN OR FEVER Last Admin: 03/22/19 16:45 Dose: 1,000 mg Amino Acids (Prosource No Carb Liquid Pkt) 30 ml PO TIDCM [facility] Last Admin: 03/24/19 09:27 Dose: 30 ml Enoxaparin Sodium (Lovenox -) 110 mg SQ DAILY [facility] Last Admin: 03/24/19 09:26 Dose: 110 mg Linezolid (Zyvox 600 Mg Premix Bag (Restricted To Id) -) 600 mg in 300 mls @ 300 mls/hr IVPB Q12H [facility]; Protocol Last Admin: 03/23/19 23:43 Dose: 300 mls/hr Norepinephrine Bitartrate 8, (000 mcg/ Dextrose) 500 mls @ 18.75 mls/hr IV TITR [facility]; Protocol Last Admin: 03/23/19 22:04 Dose: Not Given Fentanyl 500 mcg/ Dextrose 100 mls @ 10 mls/hr IVPB TITR [facility]; Protocol Last Admin: 03/24/19 02:24 Dose: 50 mcg/hr, 10 mls/hr Meropenem 1 gm/ Dextrose 100 mls @ 200 mls/hr IVPB Q8H-IV [facility] Last Admin: 03/24/19 09:26 Dose: 200 mls/hr Propofol (Diprivan -) 1,000,000 mcg in 100 mls @ 2.002 mls/hr IVPB TITR [facility]; Protocol Last Admin: 03/24/19 00:42 Dose: 15 mcg/kg/min, 6.006 mls/hr Dexmedetomidine HCl 200 mcg/ (Sodium Chloride) 50 mls @ 3.36 mls/hr IVPB TITR [facility] Last Admin: 03/24/19 00:30 Dose: 0.8 mcg/kg/hr, 13.47 mls/hr Propofol (Diprivan -) 1,000,000 mcg in 100 mls @ 4.041 mls/hr IVPB TITR [facility]; Protocol Last Admin: 03/24/19 00:43 Dose: Not Given Sodium Phosphate / Dextrose 250 mls @ 62.5 mls/hr IVPB ONCE ONE Stop: 03/24/19 12:31 Insulin Aspart (Novolog Vial Sliding Scale -) 1 vial SQ ACHS [facility]; Protocol Last Admin: 03/24/19 06:09 Dose: 2 units Ondansetron HCl (Zofran Injection) 4 mg IVPUSH Q6H PRN PRN Reason: NAUSEA AND/OR VOMITING Last Admin: 03/14/19 05:07 Dose: 4 mg Pantoprazole Sodium (Protonix Iv) 40 mg IVPUSH DAILY [facility] Last Admin: 03/24/19 09:25 Dose: 40 mg Vancomycin HCl (Vancomycin Oral Solution) 125 mg PO Q6HPO [facility] Last Admin: 03/24/19 06:08 Dose: 125 mg ASSESSMENT AND PLAN: s/p Cardiopulmonary Arrest Acute Hypoxic Respiratory Failure Perforated Small Bowel s/p ex-lap/RAYSHAWN/segmental SB resection Crohn's Disease Peritonitis +C diff Colitis Septic Shock Lactic Acidosis Volume Overload h/o PE HTN DM Hyperlipidemia Anemia Thrombocytopenia h/o CVA - continue antibiotics per ID - f/u pending cultures - monitor H/H - monitor urine output, creatinine - off pressors, maintain MAP < 65 - glycemic control - continue anticoagulation - daily sedation vacations to assess mental status - spontaneous breathing trials as tolerated when mental status improved - continue ICU monitoring critical care time spent in revieiwing chart, evaluating patient and formulating plan 35 min
[2019-03-24] MEDS: LINEZOLID 600 MG PREMIX BAG 600 MG/300 ML BAG IVPB SCH ×2 (12:10→22:55)
[2019-03-24] MEDS: DEXMEDETOMIDINE HCL 400 MCG in SODIUM CHLORIDE 96 ML IVPB SCH ×2 (13:20→21:20)
[2019-03-24] MEDS ORDERED: SODIUM PHOSPHATE - 20 MM in DEXTROSE 5%-WATER - 250 ML IVPB ONE (13:30)
--- NOTE | 2019-03-24 13:43 | PN ---
Progress Note, Physician History of Present Illness: continues to be intubated patient agonal breathing - Current Medication List Current Medications: Active Medications Acetaminophen (Ofirmev Injection -) 1,000 mg IVPB Q6H PRN PRN Reason: PAIN OR FEVER Last Admin: 03/22/19 16:45 Dose: 1,000 mg Amino Acids (Prosource No Carb Liquid Pkt) 30 ml PO TIDCM [facility] Last Admin: 03/24/19 12:10 Dose: 30 ml Enoxaparin Sodium (Lovenox -) 110 mg SQ DAILY [facility] Last Admin: 03/24/19 09:26 Dose: 110 mg Linezolid (Zyvox 600 Mg Premix Bag (Restricted To Id) -) 600 mg in 300 mls @ 300 mls/hr IVPB Q12H [facility]; Protocol Last Admin: 03/24/19 12:10 Dose: 300 mls/hr Norepinephrine Bitartrate 8, (000 mcg/ Dextrose) 500 mls @ 18.75 mls/hr IV TITR [facility]; Protocol Last Admin: 03/23/19 22:04 Dose: Not Given Fentanyl 500 mcg/ Dextrose 100 mls @ 10 mls/hr IVPB TITR [facility]; Protocol Last Admin: 03/24/19 02:24 Dose: 50 mcg/hr, 10 mls/hr Meropenem 1 gm/ Dextrose 100 mls @ 200 mls/hr IVPB Q8H-IV [facility] Last Admin: 03/24/19 09:26 Dose: 200 mls/hr Propofol (Diprivan -) 1,000,000 mcg in 100 mls @ 2.002 mls/hr IVPB TITR [facility]; Protocol Last Admin: 03/24/19 13:21 Dose: 15 mcg/kg/min, 6.006 mls/hr Propofol (Diprivan -) 1,000,000 mcg in 100 mls @ 4.041 mls/hr IVPB TITR [facility]; Protocol Last Admin: 03/24/19 00:43 Dose: Not Given Dexmedetomidine HCl 400 mcg/ (Sodium Chloride) 100 mls @ 3.36 mls/hr IVPB TITR [facility] Last Admin: 03/24/19 13:20 Dose: 0.77 mcg/kg/hr, 13 mls/hr Sodium Phosphate 20 mm/ (Dextrose) 256.6667 mls @ 62.5 mls/hr IVPB ONCE ONE Stop: 03/24/19 17:36 Last Admin: 03/24/19 13:20 Dose: 62.5 mls/hr Insulin Aspart (Novolog Vial Sliding Scale -) 1 vial SQ ACHS [facility]; Protocol Last Admin: 03/24/19 12:10 Dose: 8 units Ondansetron HCl (Zofran Injection) 4 mg IVPUSH Q6H PRN PRN Reason: NAUSEA AND/OR VOMITING Last Admin: 03/14/19 05:07 Dose: 4 mg Pantoprazole Sodium (Protonix Iv) 40 mg IVPUSH DAILY [facility] Last Admin: 03/24/19 09:25 Dose: 40 mg Vancomycin HCl (Vancomycin Oral Solution) 125 mg PO Q6HPO [facility] Last Admin: 03/24/19 12:11 Dose: 125 mg - Objective Vital Signs: Vital Signs Temperature 99.1 F 03/24/19 10:00 Pulse Rate 108 H 03/24/19 12:00 Respiratory Rate 21 H 03/24/19 12:05 Blood Pressure 90/53 L 03/24/19 12:00 O2 Sat by Pulse Oximetry (%) 100 03/24/19 09:00 Constitutional: Yes: Other Cardiovascular: Yes: Tachycardia Respiratory: Yes: Intubated, Mechanically Ventilated Gastrointestinal: Yes: Normal Bowel Sounds, Soft Musculoskeletal: Yes: WNL Extremities: Yes: WNL Neurological: Yes: Other Labs: CBC, BMP 03/24/19 05:40 03/24/19 05:40 INR, PTT INR 1.49 (0.83-1.09) H 03/19/19 23:15 Fibrinogen 359.0 mg/dL (238-498) 03/19/19 23:15 Assessment/Plan SBO versus flair of inflammatory bowel disease R/O GI source of infection Type I IDDM, PE HTN HLD CVA with mild left-sided weakness cdiff plan continue abx ventilator nutrition close watch rest as per icu trend wbc wean pressors as tolerated prognosis guarded cc 40 min
--- NOTE | 2019-03-24 13:47 | PN ---
Physical Exam: SUBJECTIVE: Patient seen and examined at bedside this AM. Pt given precedex and prop and fentanyl overnight. OBJECTIVE: Vital Signs Period Temp Pulse Resp BP Sys/Rapp Pulse Ox Last 24 Hr 98.6 F-99.9 F 52-122 20-31 90-134/53-75 100-100 GENERAL: The patient is intubated and sedated. NECK: supple. LUNGS: Breath sounds equal, clear to auscultation bilaterally, no wheezes, no crackles, no accessory muscle use. HEART: Regular rate and rhythm, S1, S2 without murmur, rub or gallop. ABDOMEN: Soft, nontender, nondistended, bandage on abdomen in place, no blood or d/c. EXTREMITIES: upper and lower extremities edematous. SKIN: Warm, dry, no rashes or lesions noted Laboratory Results - last 24 hr 03/19/19 03/23/19 03/23/19 23:15 13:44 16:30 WBC RBC Hgb Hct MCV MCH MCHC RDW Plt Count MPV Absolute Neuts (auto) Neutrophils % Lymphocytes % Monocytes % Eosinophils % Basophils % Nucleated RBC % Hypochromia Platelet Estimate Polychromasia Poikilocytosis Anisocytosis Microcytosis Macrocytosis Target Cells Ovalocytes Sodium Potassium Chloride Carbon Dioxide Anion Gap BUN Creatinine Est GFR (CKD-EPI)AfAm Est GFR (CKD-EPI)NonAf POC Glucometer 155 162 Random Glucose Calcium Phosphorus Magnesium Total Bilirubin AST ALT Alkaline Phosphatase Total Protein Albumin Blood Type A NEGATIVE Antibody Screen Positive H Crossmatch See Detail 03/23/19 03/24/19 03/24/19 21:56 01:44 05:40 WBC 7.9 RBC 3.06 L Hgb 7.9 L Hct 24.2 L MCV 78.9 L MCH 25.9 MCHC 32.9 RDW 23.2 H Plt Count 95 L D MPV 8.1 Absolute Neuts (auto) 5.6 Neutrophils % 71.4 Lymphocytes % 20.4 Monocytes % 4.3 Eosinophils % 3.0 D Basophils % 0.9 Nucleated RBC % 0 Hypochromia 0 Platelet Estimate Decreased Polychromasia 1+ Poikilocytosis 0 Anisocytosis 1+ Microcytosis 1+ Macrocytosis 1+ Target Cells 2+ Ovalocytes 1+ Sodium Potassium Chloride Carbon Dioxide Anion Gap BUN Creatinine Est GFR (CKD-EPI)AfAm Est GFR (CKD-EPI)NonAf POC Glucometer 255 120 Random Glucose Calcium Phosphorus Magnesium Total Bilirubin AST ALT Alkaline Phosphatase Total Protein Albumin Blood Type Antibody Screen Crossmatch 03/24/19 03/24/19 03/24/19 05:40 06:03 11:56 WBC RBC Hgb Hct MCV MCH MCHC RDW Plt Count MPV Absolute Neuts (auto) Neutrophils % Lymphocytes % Monocytes % Eosinophils % Basophils % Nucleated RBC % Hypochromia Platelet Estimate Polychromasia Poikilocytosis Anisocytosis Microcytosis Macrocytosis Target Cells Ovalocytes Sodium 141 Potassium 3.8 Chloride 104 Carbon Dioxide 31 Anion Gap 6 L BUN 14.5 Creatinine 0.4 L Est GFR (CKD-EPI)AfAm 141.75 Est GFR (CKD-EPI)NonAf 122.30 POC Glucometer 198 306 Random Glucose 207 H Calcium 6.8 L* Phosphorus 2.0 L Magnesium 1.7 L Total Bilirubin 0.4 AST 14 L ALT 7 L Alkaline Phosphatase 170 H Total Protein 3.9 L Albumin 1.1 L Blood Type Antibody Screen Crossmatch Active Medications Generic Name Dose Route Start Last Admin Trade Name Freq PRN Reason Stop Dose Admin Acetaminophen 1,000 mg 03/22/19 16:17 03/22/19 16:45 Ofirmev Injection - IVPB 1,000 mg Q6H PRN Administration PAIN OR FEVER Amino Acids 30 ml 03/19/19 08:00 03/24/19 12:10 Prosource No Carb Liquid Pkt PO 30 ml TIDCM [facility] Administration Enoxaparin Sodium 110 mg 03/17/19 13:00 03/24/19 09:26 Lovenox - SQ 110 mg DAILY [facility] Administration Linezolid 600 mg in 300 mls @ 300 mls/hr 03/18/19 11:45 03/24/19 12:10 Zyvox 600 Mg Premix Bag (Restricted To Id) - IVPB 300 mls/hr Q12H [facility] Administration Protocol Norepinephrine Bitartrate 8, 500 mls @ 18.75 mls/hr 03/19/19 21:15 03/23/19 22:04 000 mcg/ Dextrose IV Not Given TITR [facility] Protocol 5 MCG/MIN Fentanyl 500 mcg/ Dextrose 100 mls @ 10 mls/hr 03/20/19 09:30 03/24/19 02:24 IVPB 50 mcg/hr TITR [facility] 10 mls/hr Administration Protocol 50 MCG/HR Meropenem 1 gm/ Dextrose 100 mls @ 200 mls/hr 03/21/19 18:00 03/24/19 09:26 IVPB 200 mls/hr Q8H-IV [facility] Administration Propofol 1,000,000 mcg in 100 mls @ 2.002 mls/hr 03/22/19 19:30 03/24/19 13: 21 Diprivan - IVPB 15 mcg/kg/min TITR [facility] 6.006 mls/hr Administration Protocol 5 MCG/KG/MIN Propofol 1,000,000 mcg in 100 mls @ 4.041 mls/hr 03/24/19 00:15 03/24/19 00: 43 Diprivan - IVPB Not Given TITR [facility] Protocol 10 MCG/KG/MIN Dexmedetomidine HCl 400 mcg/ 100 mls @ 3.36 mls/hr 03/24/19 12:45 03/24/19 13 :20 Sodium Chloride IVPB 0.77 mcg/kg/hr TITR [facility] 13 mls/hr Administration 0.2 MCG/KG/HR Sodium Phosphate 20 mm/ 256.6667 mls @ 62.5 mls/hr 03/24/19 13:30 03/24/19 13 :20 Dextrose IVPB 03/24/19 17:36 62.5 mls/hr ONCE ONE Administration Insulin Aspart 1 vial 03/22/19 16:30 03/24/19 12:10 Novolog Vial Sliding Scale - SQ 8 units ACHS [facility] Administration Protocol Ondansetron HCl 4 mg 03/11/19 20:31 03/14/19 05:07 Zofran Injection IVPUSH 4 mg Q6H PRN Administration NAUSEA AND/OR VOMITING Pantoprazole Sodium 40 mg 03/20/19 10:00 03/24/19 09:25 Protonix Iv IVPUSH 40 mg DAILY [facility] Administration Vancomycin HCl 125 mg 03/15/19 18:00 03/24/19 12:11 Vancomycin Oral Solution PO 125 mg Q6HPO [facility] Administration ASSESSMENT/PLAN: 48F PMH IDDM, PE on xarelto, frequent DKA, HTN, HLD, CVA w/ left sided weakness , recent hospitalization at [facility] September 2018 admitted to ICU for SBO. Developed pneumoperitoneum s/p ex-lap. POD #10 Neuro - sedated - intubated - unable to wean off sedation to assess mental status, switching sedative from preed - sedation vacation attempted, patient responsive only to light, unable to follow commands and unable to respond to pain or noxious stimuli - Tylenol for pain/fever ctrl CV - hx of transient a-fib with RVR - sinus tachy 118 - No longer hypotensive - Maintain MAP >65 - continue pressors - if persistent a-fib start amiodarone Respiratory - Patient remains intubated tried to wean sedation but wasnt able to bc of tachycardia and tachypnea. - Lasix IV 40 BID - monitor resp status - sedation vacation attempted, patient began having increased work of breathing and was placed back on sedation GI - Crohn's flair likely, pneumoperitoneum s/p ex-lap - c/w linezolid - GI recs appreciated continuing w/ C diff management - confirmed with surgery regarding CT abdomen and pelvis with contrast via NG tube and IV contrast to assess for a fluid collection/other cause of infection. ID-> C diff - Per Dr. Pimentel we will be continuing linezolid, vanco, sylvester - Cx + LF neg bacilli - UCx + VRE - CDiff Ag and toxin pos - WBC 12.9 Endocrine-> Hypoglycemia - d/c levemir - D10W - d/c tube feeds due to emesis. FEN - lasix given, on D10W 75cc/hr to help with hypoglycemia - Lytes in AM, replete PRN - Phos repleted - Monitor I/Os - Monitor UrO, Cr PPx: Lovenox 110, SCDs
--- NOTE | 2019-03-24 18:49 | PN.GI ---
GI Progress Note Subjective: Pt seen/examined at bedside, remains intubated/sedated, off pressors. Approximately 500cc stool output over 24 hours per nursing staff. - Objective Vital Signs: Vital Signs Temperature 99.1 F 03/24/19 18:00 Pulse Rate 62 03/24/19 18:00 Respiratory Rate 24 H 03/24/19 18:00 Blood Pressure 98/60 03/24/19 18:00 O2 Sat by Pulse Oximetry (%) 100 03/24/19 09:00 Constitutional: Other (Intubated/sedated) Cardiovascular: Yes: WNL, Regular Rate and Rhythm Respiratory: Yes: Mechanically Ventilated ...Palpate: Yes: Other (Abd soft, no tenderness elicited ~500cc dark greenish liquid brown stool) Labs: CBC, BMP 03/24/19 05:40 03/24/19 05:40 INR, PTT INR 1.49 (0.83-1.09) H 03/19/19 23:15 Fibrinogen 359.0 mg/dL (238-498) 03/19/19 23:15 Problem List - Problems (1) C. difficile diarrhea Assessment/Plan: Approximately 500cc stool output in 24 hours. Fever and leucocytosis improved. CT abd/pelvis without obvious collections/abscess or other acute findings. -Monitor/record stool output -Continue to monitor and replete electrolytes -Monitor wcc -Continue vancomycin 125mg po q6 (also on meropenem and linezolid due to culture results) -Further recommendations per ID Code(s): A04.72 - ENTEROCOLITIS D/T CLOSTRIDIUM DIFFICILE, NOT SPCF RECUR (2) Small bowel perforation Assessment/Plan: S/p ex lap and small bowel resection with ileal perforation, path revealing severe serositis. Records available in chart note h/o small bowel crohns disease s/p prior resection (path report not available). EGD and colonoscopies without evidence of crohns. CT abd/pelvis without collections or acute findings as noted above. -Asked primary team to assist with obtaining records from [facility] [place] as did not yet receive call back. Need to clarify extent of small bowel resection and pathology results to clarify crohns disease diagnosis -Further management per MICU and surgery team. Discussed with MICU residents Code(s): K63.1 - PERFORATION OF INTESTINE (NONTRAUMATIC)
[2019-03-24] MEDS ORDERED: PROPOFOL 1,000,000 MCG/100 ML VIAL ONE (22:03)
[2019-03-25] MEDS ORDERED: fentaNYL CITRATE 250 MCG/5 ML VIAL ONE ×3 (00:01→20:13)
[2019-03-25] MEDS: VANCOMYCIN 250 MG/5 ML ORAL SOLUTION PO SCH ×5 (00:13→23:19)
[2019-03-25] MEDS: FENTANYL INJECTION 500 MCG in DEXTROSE 5%-WATER - 90 ML IVPB SCH ×4 (00:14→20:45)
[2019-03-25] MEDS ORDERED: MEROPENEM 1 GM VIAL (RESTRICTED TO ID) IVPB ONE ×3 (02:33→16:16)
[2019-03-25] MEDS: MEROPENEM 1 GM in DEXTROSE 5%-WATER 100 ML IVPB SCH ×3 (02:35→17:01)
[2019-03-25] MEDS ORDERED: INSULIN SLIDING SCALE (NOVOLOG) 1 VIAL SQ SCH (03:15)
[2019-03-25] MEDS: PROPOFOL 1,000,000 MCG/100 ML VIAL IVPB SCH ×4 (03:29→20:46)
[2019-03-25] MEDS: INSULIN SLIDING SCALE (NOVOLOG) 1 VIAL SQ SCH ×5 (05:38→21:09)
[2019-03-25] MEDS: DEXMEDETOMIDINE HCL 400 MCG in SODIUM CHLORIDE 96 ML IVPB SCH ×4 (05:39→21:51)
[2019-03-25 06:23] LABS: BASO % 0.9 % (0-2.0); EOS % 2.2 % (0-4.5); HEMATOCRIT 27.2 % (32.4-45.2); HEMOGLOBIN 8.9 GM/dL (10.7-15.3); LYMPH % 23.2 % (8-40); MCH 26.1 pg (25.7-33.7); MCHC 32.8 g/dl (32.0-36.0); MEAN CELL VOLUME 79.4 fl (80-96); MEAN PLT VOLUME 8.2 fl (7.5-11.1); NEUT % 67.7 % (42.8-82.8); PLATELET COUNT 179 K/MM3 (134-434); RBC 3.42 M/mm3 (3.60-5.2); RDW 23.7 % (11.6-15.6); WHITE BLOOD COUNT 8.6 K/mm3 (4.0-10.0)
[2019-03-25 06:42] LABS: ALBUMIN 1.2 g/dl (3.4-5.0); BILIRUBIN,TOTAL 0.2 mg/dL (0.2-1); BLOOD UREA NITROGEN 16.2 mg/dL (7-18); CALCIUM 7.2 mg/dL (8.5-10.1); CREATININE 0.4 mg/dL (0.55-1.3); MAGNESIUM 1.9 mg/dL (1.8-2.4); POTASSIUM 3.5 mmol/L (3.5-5.1); TOT PROT 4.6 g/dl (6.4-8.2)
[2019-03-25] MEDS ORDERED: NAPH,MB-DB/K PH,MBDB POWDER PACKET NGT ONE (08:30)
[2019-03-25] MEDS: AMINO ACIDS/PROTEIN HYDROLYS 30 ML LIQUID.PKT PO SCH ×3 (09:00→16:41)
--- NOTE | 2019-03-25 09:07 | PN ---
Progress Note, Physician Chief Complaint: orally intubated and sedated, spiking temps History of Present Illness: 48 year-old female with a PMH significant for Type I IDDM, frequent admissions for DKA, HTN, HLD, CVA with left-sided weakness. Recent hospitalization at [facility] September 2018 for SBO. She is s/p post exploratory lap and resection of illial perforation 03/12. Post op course treated for bacteremia and C-Diff. AC was restarted post op (lovenox 110). She became pulseless on 03/19/19 at 0600 and CPR was initiated. She was given epi and intubated to protect airway. tele showed rapid afib. She had a troponin elevation and her ekg w/o st elevations. she was evaluated by cardiology and remains intubated in the ICU. She continues to have agonal breathing. - Current Medication List Current Medications: Active Medications Acetaminophen (Ofirmev Injection -) 1,000 mg IVPB Q6H PRN PRN Reason: PAIN OR FEVER Last Admin: 03/22/19 16:45 Dose: 1,000 mg Amino Acids (Prosource No Carb Liquid Pkt) 30 ml PO TIDCM [facility] Last Admin: 03/24/19 17:29 Dose: 30 ml Enoxaparin Sodium (Lovenox -) 110 mg SQ DAILY [facility] Last Admin: 03/24/19 09:26 Dose: 110 mg Linezolid (Zyvox 600 Mg Premix Bag (Restricted To Id) -) 600 mg in 300 mls @ 300 mls/hr IVPB Q12H [facility]; Protocol Last Admin: 03/24/19 22:55 Dose: 300 mls/hr Fentanyl 500 mcg/ Dextrose 100 mls @ 10 mls/hr IVPB TITR [facility]; Protocol Last Admin: 03/25/19 00:14 Dose: 50 mcg/hr, 10 mls/hr Meropenem 1 gm/ Dextrose 100 mls @ 200 mls/hr IVPB Q8H-IV [facility] Last Admin: 03/25/19 02:35 Dose: 200 mls/hr Propofol (Diprivan -) 1,000,000 mcg in 100 mls @ 4.041 mls/hr IVPB TITR [facility]; Protocol Last Admin: 03/25/19 03:29 Dose: 10 mcg/kg/min, 4.041 mls/hr Dexmedetomidine HCl 400 mcg/ (Sodium Chloride) 100 mls @ 3.36 mls/hr IVPB TITR [facility] Last Admin: 03/25/19 05:39 Dose: 0.77 mcg/kg/hr, 13 mls/hr Insulin Aspart (Novolog Vial Sliding Scale -) 1 vial SQ Q4HWA [facility]; Protocol Last Admin: 03/25/19 05:38 Dose: Not Given Ondansetron HCl (Zofran Injection) 4 mg IVPUSH Q6H PRN PRN Reason: NAUSEA AND/OR VOMITING Last Admin: 03/14/19 05:07 Dose: 4 mg Pantoprazole Sodium (Protonix Iv) 40 mg IVPUSH DAILY [facility] Last Admin: 03/24/19 09:25 Dose: 40 mg Vancomycin HCl (Vancomycin Oral Solution) 125 mg PO Q6HPO [facility] Last Admin: 03/25/19 05:39 Dose: 125 mg - Objective Vital Signs: Vital Signs Temperature 99.2 F 03/25/19 06:00 Pulse Rate 99 H 03/25/19 08:00 Respiratory Rate 25 H 03/25/19 08:00 Blood Pressure 106/76 03/25/19 08:00 O2 Sat by Pulse Oximetry (%) 100 03/24/19 22:00 Additional Findings/Remarks: Constitutional: Yes: Other (sedated and intubated) Eyes: Yes: WNL, Conjunctiva Clear HENT: Yes: WNL, Atraumatic, Normocephalic Neck: Yes: WNL, Supple, Trachea Midline Cardiovascular: Yes: Regular Rate and Rhythm, Tachycardia Respiratory: Yes: Intubated (orally on AC) Gastrointestinal: Yes: Normal Bowel Sounds, Soft, Other (TF, rectal tube)Other ( open midline wound, poor grauulation with fribrious exudate. Upper [id number] lower [id number] VAC dressing applied white foam and granulofoam @125mmHg continuous). ...Rectal Exam: Yes: rectal tube with liquid stool Genitourinary: Yes: Lott Present Breast(s): Yes: WNL Musculoskeletal: Yes: Muscle Weakness Edema: Yes Edema: LUE: 2+, RUE: 2+, LLE: 2+, RLE: 2+ Peripheral Pulses WNL: Yes Peripheral Pulses: Left Radial: 1+, Right Radial: 1+, Left Doralis Pedis: 1+, Right Dorsalis Pedis: 1+, Left Femoral: 1+, Right Femoral: 1+ Integumentary: Yes: Bruising Wound/Incision: Yes: Unapproximated (dihescense at distal portion of abd incision) Neurological: Yes: Other (sedated on dexmetatomidine) ...Motor Strength: RUE (noted movement) Psychiatric: Yes: Other (sedated on precedex) Labs: Labs: CBC, BMP 03/25/19 05:30 03/25/19 05:30 INR, PTT INR 1.49 (0.83-1.09) H 03/19/19 23:15 Fibrinogen 359.0 mg/dL (238-498) 03/19/19 23:15 Problem List - Problems (1) HLD (hyperlipidemia) Assessment/Plan: NPO Code(s): E78.5 - HYPERLIPIDEMIA, UNSPECIFIED (2) Left-sided weakness Assessment/Plan: movement noted to right UE PT when no longer requiring ICU monitoring Code(s): R53.1 - WEAKNESS (3) History of open heart surgery Code(s): Z98.890 - OTHER SPECIFIED POSTPROCEDURAL STATES (4) Acute Crohn's disease Assessment/Plan: history of chrons followed at [facility], was suppose to start infliximab but never followed through off steroids GI following at [facility] reported to Dr Newell that pathology conformed Chrons dz Code(s): K50.90 - CROHN'S DISEASE, UNSPECIFIED, WITHOUT COMPLICATIONS (5) Gastroparesis Code(s): K31.84 - GASTROPARESIS (6) Abdominal pain Assessment/Plan: s/p bowel resection with viscous repair general surgery following wound dihensence noted at distal portion, vac in place dressing changes as per surgery Code(s): R10.9 - UNSPECIFIED ABDOMINAL PAIN Qualifiers: Abdominal location: generalized Qualified Code(s): R10.84 - Generalized abdominal pain (7) Small bowel obstruction Assessment/Plan: s/p perforated viscus repair dressing changes as per surgical team Code(s): K56.609 - UNSP INTESTNL OBST, UNSP TO PARTIAL VERSUS COMPLETE OBST (8) Cerebrovascular accident (CVA) Assessment/Plan: left sided weakness PT to follow when no longer requiring ICU care Code(s): I63.9 - CEREBRAL INFARCTION, UNSPECIFIED Qualifiers: CVA mechanism: unspecified Qualified Code(s): I63.9 - Cerebral infarction, unspecified (9) Chronic pain Assessment/Plan: sedated with precedex/ fentanyl/profolol Code(s): G89.29 - OTHER CHRONIC PAIN Qualifiers: Chronic pain type: chronic pain syndrome Qualified Code(s): G89.4 - Chronic pain syndrome (10) Prophylactic measure Assessment/Plan: FEN Jevity monitor electrolytes IVF DVT heparin sq Dispo requires ICU care full code palliative care following-HCP being sent from [facility] prognosis critical discharge planning Code(s): Z29.9 - ENCOUNTER FOR PROPHYLACTIC MEASURES, UNSPECIFIED (11) Diabetes Assessment/Plan: BGM q4h careful glycemic control with multiple episodes of DKA c/w D10 levemir stopped Code(s): E11.9 - TYPE 2 DIABETES MELLITUS WITHOUT COMPLICATIONS (12) Perforated abdominal viscus Assessment/Plan: s/p Ex-lap/RAYSHAWN/partial SB and omental resection with anastomosis/washou appreciate surgical and ID consultation c/w abx Code(s): DUM4701 - (13) Hypoxia Assessment/Plan: orally intuabted on mechanical ventilation attempt weaning trial if more responsive off sedation lasix Iv given appreciate ICU level of care Code(s): R09.02 - HYPOXEMIA (14) C. difficile diarrhea Assessment/Plan: Diarrhea has improved, elevated lactate and mild leucocytosis noted. -Continue vancomycin PO -c/w rectal tube Code(s): A04.72 - ENTEROCOLITIS D/T CLOSTRIDIUM DIFFICILE, NOT SPCF RECUR (15) ESBL (extended spectrum beta-lactamase) producing bacteria infection Assessment/Plan: ESBL in wound appreciate ID consultation -Dr. Pimentel c/w linezolid, vanco, sylvester - Cx + LF neg bacilli - UCx + VRE - CDiff Ag and toxin pos - WBC down to 8.6 Code(s): A49.9 - BACTERIAL INFECTION, UNSPECIFIED; Z16.12 - EXTENDED SPECTRUM BETA LACTAMASE (ESBL) RESISTANCE (16) Clostridium difficile diarrhea Code(s): A04.72 - ENTEROCOLITIS D/T CLOSTRIDIUM DIFFICILE, NOT SPCF RECUR (17) Hypotension Assessment/Plan: norepi gtt titrate to off maintaining MAP>60 Problems reviewed: Yes Code(s): I95.9 - HYPOTENSION, UNSPECIFIED (18) Admitted to intensive care unit Assessment/Plan: appreciate ICU level of care Code(s): Z78.9 - OTHER SPECIFIED HEALTH STATUS Visit type - Emergency Visit Emergency Visit: Yes ED Registration Date: 03/09/19 Care time: The patient presented to the Emergency Department on the above date and was hospitalized for further evaluation of their emergent condition. - New Patient This patient is new to me today: No - Critical Care Critical Care patient: Yes Total Critical Care Time (in minutes): 35 Critical Care Statement: The care of this patient involved high complexity decision making to prevent further life threatening deterioration of the patient 's condition and/or to evaluate & treat vital organ system(s) failure or risk of failure. - Discharge Referral Referred to [facility] Med P.C.: No
[2019-03-25] MEDS ORDERED: DEXTROSE 5%-WATER 100 ML IVPB ONE ×2 (09:24→16:16)
[2019-03-25] MEDS: ENOXAPARIN NA (PORCINE) 60 MG/0.6 ML DISP.SYRIN SQ SCH (09:42)
[2019-03-25] MEDS: PANTOPRAZOLE SODIUM 40 MG VIAL IVPUSH SCH (09:43)
[2019-03-25] MEDS ORDERED: HYDROmorphone HCl 2 MG/ML VIAL IM PRN (10:40)
[2019-03-25] MEDS ORDERED: HYDROmorphone HCl 2 MG/ML VIAL IVPB PRN (10:59)
[2019-03-25] MEDS: ACETAMINOPHEN 1000 MG/100 ML VIAL (NON FORMULARY) IVPB PRN (11:03)
[2019-03-25] MEDS ORDERED: DEXMEDETOMIDINE HCL 200 MCG in SODIUM CHLORIDE 48 ML IVPB SCH (11:45)
[2019-03-25] MEDS ORDERED: FUROSEMIDE 40 MG/4 ML INJECTABLE VIAL IVPUSH ONE (12:00)
[2019-03-25] MEDS: LINEZOLID 600 MG PREMIX BAG 600 MG/300 ML BAG IVPB SCH ×2 (12:06→23:19)
[2019-03-25] MEDS: HYDROmorphone HCl 2 MG/ML VIAL IVPB PRN ×2 (12:11→23:19)
--- NOTE | 2019-03-25 12:24 | PN ---
Teaching Attending Note Name of Resident: Baljeet Hutson ATTENDING PHYSICIAN STATEMENT I saw and evaluated the patient. I reviewed the resident's note and discussed the case with the resident. I agree with the resident's findings and plan as documented. SUBJECTIVE: Patient seen and examined in the ICU. Remains intubated, sedated on propofol and fentanyl. Breathing is rapid and slightly dyssynchronous. Off pressors. OBJECTIVE: Intake & Output 03/22/19 03/23/19 03/24/19 03/25/19 23:59 23:59 23:59 23:59 Intake Total 2257 4523 2787 1632 Output Total 1400 2700 1400 350 Balance 857 1823 1387 1282 Weight 147 lb 2 oz 148 lb 8 oz 144 lb 3 oz 146 lb 8 oz Last Vital Signs Temp Pulse Resp BP Pulse Ox 100.7 F H 116 H 21 H 108/65 100 03/25/19 10:00 03/25/19 10:00 03/25/19 12:15 03/25/19 10:00 03/24/19 22:00 Active Medications Acetaminophen (Ofirmev Injection -) 1,000 mg IVPB Q6H PRN PRN Reason: PAIN OR FEVER Last Admin: 03/25/19 11:03 Dose: 1,000 mg Amino Acids (Prosource No Carb Liquid Pkt) 30 ml PO TIDCM [facility] Last Admin: 03/25/19 12:06 Dose: 30 ml Enoxaparin Sodium (Lovenox -) 110 mg SQ DAILY [facility] Last Admin: 03/25/19 09:42 Dose: 110 mg Hydromorphone HCl (Dilaudid Vial -) 1 mg IVPB Q4H PRN PRN Reason: PAIN LEVEL 1-5 Last Admin: 03/25/19 12:11 Dose: 1 mg Linezolid (Zyvox 600 Mg Premix Bag (Restricted To Id) -) 600 mg in 300 mls @ 300 mls/hr IVPB Q12H [facility]; Protocol Last Admin: 03/25/19 12:06 Dose: 300 mls/hr Fentanyl 500 mcg/ Dextrose 100 mls @ 10 mls/hr IVPB TITR [facility]; Protocol Last Admin: 03/25/19 10:49 Dose: 50 mcg/hr, 10 mls/hr Meropenem 1 gm/ Dextrose 100 mls @ 200 mls/hr IVPB Q8H-IV [facility] Last Admin: 03/25/19 09:40 Dose: 200 mls/hr Propofol (Diprivan -) 1,000,000 mcg in 100 mls @ 4.041 mls/hr IVPB TITR [facility]; Protocol Last Admin: 03/25/19 10:48 Dose: 25 mcg/kg/min, 10.104 mls/hr Dexmedetomidine HCl 400 mcg/ (Sodium Chloride) 100 mls @ 3.36 mls/hr IVPB TITR [facility] Last Admin: 03/25/19 05:39 Dose: 0.77 mcg/kg/hr, 13 mls/hr Insulin Aspart (Novolog Vial Sliding Scale -) 1 vial SQ Q4HWA [facility]; Protocol Last Admin: 03/25/19 10:57 Dose: 12 units Ondansetron HCl (Zofran Injection) 4 mg IVPUSH Q6H PRN PRN Reason: NAUSEA AND/OR VOMITING Last Admin: 03/14/19 05:07 Dose: 4 mg Pantoprazole Sodium (Protonix Iv) 40 mg IVPUSH DAILY [facility] Last Admin: 03/25/19 09:43 Dose: 40 mg Vancomycin HCl (Vancomycin Oral Solution) 125 mg PO Q6HPO [facility] Last Admin: 03/25/19 12:07 Dose: 125 mg Gen: Intubated, sedated, tachypneic Heart: RRR Lung: scattered rhonchi Abd: soft, nontender Ext: no edema Laboratory Results - last 24 hr 03/24/19 03/24/19 03/24/19 05:40 17:45 21:40 WBC RBC Hgb Hct MCV MCH MCHC RDW Plt Count MPV Absolute Neuts (auto) Neutrophils % Lymphocytes % Monocytes % Eosinophils % Basophils % Nucleated RBC % Hypochromia 0 Platelet Estimate Decreased Polychromasia 1+ Poikilocytosis 0 Anisocytosis 1+ Microcytosis 1+ Macrocytosis 1+ Target Cells 2+ Ovalocytes 1+ Sodium Potassium Chloride Carbon Dioxide Anion Gap BUN Creatinine Est GFR (CKD-EPI)AfAm Est GFR (CKD-EPI)NonAf POC Glucometer 109 249 Random Glucose Calcium Phosphorus Magnesium Total Bilirubin AST ALT Alkaline Phosphatase Total Protein Albumin 03/25/19 03/25/19 03/25/19 03:08 05:30 05:30 WBC 8.6 RBC 3.42 L Hgb 8.9 L Hct 27.2 L MCV 79.4 L MCH 26.1 MCHC 32.8 RDW 23.7 H Plt Count 179 D MPV 8.2 Absolute Neuts (auto) 5.8 Neutrophils % 67.7 Lymphocytes % 23.2 Monocytes % 6.0 Eosinophils % 2.2 Basophils % 0.9 Nucleated RBC % 0 Hypochromia Platelet Estimate Polychromasia Poikilocytosis Anisocytosis Microcytosis Macrocytosis Target Cells Ovalocytes Sodium 142 Potassium 3.5 Chloride 104 Carbon Dioxide 31 Anion Gap 7 L BUN 16.2 Creatinine 0.4 L Est GFR (CKD-EPI)AfAm 141.75 Est GFR (CKD-EPI)NonAf 122.30 POC Glucometer 225 Random Glucose 120 H Calcium 7.2 L Phosphorus 2.0 L Magnesium 1.9 Total Bilirubin 0.2 AST 16 ALT 10 L Alkaline Phosphatase 184 H Total Protein 4.6 L Albumin 1.2 L 03/25/19 03/25/19 05:32 10:53 WBC RBC Hgb Hct MCV MCH MCHC RDW Plt Count MPV Absolute Neuts (auto) Neutrophils % Lymphocytes % Monocytes % Eosinophils % Basophils % Nucleated RBC % Hypochromia Platelet Estimate Polychromasia Poikilocytosis Anisocytosis Microcytosis Macrocytosis Target Cells Ovalocytes Sodium Potassium Chloride Carbon Dioxide Anion Gap BUN Creatinine Est GFR (CKD-EPI)AfAm Est GFR (CKD-EPI)NonAf POC Glucometer 118 401 Random Glucose Calcium Phosphorus Magnesium Total Bilirubin AST ALT Alkaline Phosphatase Total Protein Albumin ASSESSMENT AND PLAN: s/p Cardiopulmonary Arrest R/O JUAQUIN Acute Hypoxic Respiratory Failure Perforated Small Bowel s/p ex-lap/RAYSHAWN/segmental SB resection Crohn's Disease Peritonitis +C diff Colitis Septic Shock Lactic Acidosis Volume Overload h/o PE HTN DM Hyperlipidemia Anemia Thrombocytopenia h/o CVA - continue antibiotics per ID - Normal transfusion threshold - monitor urine output, creatinine - off pressors, maintain MAP < 65 - Dose of Lasix today - glycemic control - continue anticoagulation - Enteral feeds - Start Precedex and wean propofol - spontaneous breathing trials as tolerated - Requires continued ICU monitoring Dr Otero Critical care time spent in reviewing chart, evaluating patient and formulating plan 35 min
[2019-03-25] MEDS ORDERED: PT OWN MED DRAWER 7, Y5N ONE ×2 (14:05→17:06)
[2019-03-25 14:06] LABS: ALBUMIN 1.4 g/dl (3.4-5.0); BILIRUBIN,TOTAL 0.3 mg/dL (0.2-1); BLOOD UREA NITROGEN 19.9 mg/dL (7-18); CALCIUM 7.3 mg/dL (8.5-10.1); CREATININE 0.6 mg/dL (0.55-1.3); POTASSIUM 3.7 mmol/L (3.5-5.1); TOT PROT 5.2 g/dl (6.4-8.2)
--- NOTE | 2019-03-25 14:22 | PN ---
Progress Note, Physician Chief Complaint: Abdominal Pain History of Present Illness: 48yo female PMH HTN, CVA (left sided hemiparesis), HLD, IDDM, DKA resulting in multiple admissions, dysphagia, gastroparesis, esophageal stricture (EGD 02/14), c/diff (10/2018), SBO September 2018 (s/p SB resection at [facility] as per pt report) presented to [place] ED on the afternoon of 12/21 with complaints of N/V/D/ abd pain intermittently for years. She has had persistent pain but has had improved hemodynamics after IVF resuscitation. - Current Medication List Current Medications: Active Medications Acetaminophen (Ofirmev Injection -) 1,000 mg IVPB Q6H PRN PRN Reason: PAIN OR FEVER Last Admin: 03/25/19 11:03 Dose: 1,000 mg Amino Acids (Prosource No Carb Liquid Pkt) 30 ml PO TIDCM [facility] Last Admin: 03/25/19 12:06 Dose: 30 ml Enoxaparin Sodium (Lovenox -) 110 mg SQ DAILY [facility] Last Admin: 03/25/19 09:42 Dose: 110 mg Hydromorphone HCl (Dilaudid Vial -) 1 mg IVPB Q4H PRN PRN Reason: PAIN LEVEL 1-5 Last Admin: 03/25/19 12:11 Dose: 1 mg Linezolid (Zyvox 600 Mg Premix Bag (Restricted To Id) -) 600 mg in 300 mls @ 300 mls/hr IVPB Q12H [facility]; Protocol Last Admin: 03/25/19 12:06 Dose: 300 mls/hr Fentanyl 500 mcg/ Dextrose 100 mls @ 10 mls/hr IVPB TITR [facility]; Protocol Last Admin: 03/25/19 10:49 Dose: 50 mcg/hr, 10 mls/hr Meropenem 1 gm/ Dextrose 100 mls @ 200 mls/hr IVPB Q8H-IV [facility] Last Admin: 03/25/19 09:40 Dose: 200 mls/hr Propofol (Diprivan -) 1,000,000 mcg in 100 mls @ 4.041 mls/hr IVPB TITR [facility]; Protocol Last Titration: 03/25/19 11:00 Dose: 15 mcg/kg/min, 6.062 mls/hr Dexmedetomidine HCl 400 mcg/ (Sodium Chloride) 100 mls @ 3.36 mls/hr IVPB TITR [facility] Last Admin: 03/25/19 12:45 Dose: Not Given Insulin Aspart (Novolog Vial Sliding Scale -) 1 vial SQ Q4HWA [facility]; Protocol Last Admin: 03/25/19 10:57 Dose: 12 units Ondansetron HCl (Zofran Injection) 4 mg IVPUSH Q6H PRN PRN Reason: NAUSEA AND/OR VOMITING Last Admin: 03/14/19 05:07 Dose: 4 mg Pantoprazole Sodium (Protonix Iv) 40 mg IVPUSH DAILY [facility] Last Admin: 03/25/19 09:43 Dose: 40 mg Vancomycin HCl (Vancomycin Oral Solution) 125 mg PO Q6HPO [facility] Last Admin: 03/25/19 12:07 Dose: 125 mg - Objective Vital Signs: Vital Signs Temperature 101.5 F H 03/25/19 14:00 Pulse Rate 116 H 03/25/19 14:00 Respiratory Rate 03/25/19 14:00 Blood Pressure 95/60 03/25/19 14:00 O2 Sat by Pulse Oximetry (%) 100 03/24/19 22:00 Vital Signs Period Temp Pulse Resp BP Sys/Rapp Pulse Ox Last 24 Hr 99 F-101.5 F 62-131 19-32 89-138/57-83 98-100 Intake & Output 03/24/19 03/25/19 03/25/19 23:59 07:59 15:59 Intake Total 1556 1632 Output Total 400 350 Balance 1156 1282 Weight 146 lb 8 oz Intake: IV 426 351 DIPRIVAN - 1,000,000 mcg 120 73 In 100 ml @ 10 MCG/KG/MIN 4.041 mls/hr IVPB TITR [facility] Rx#:[id number] Precedex - 400 Mcg In 186 157 Normal Saline - 96 ml @ 0 .2 MCG/KG/HR 3.36 mls/hr IVPB TITR [facility] Rx#: [id number] Sublimaze Injection - 500 120 121 Mcg In D5w - 90 ml @ 50 MCG/HR 10 mls/hr IVPB TITR [facility] Rx#:[id number] IVPB 770 541 Tube Feeding 360 490 Tube Irrigant 250 Output: Urine 400 350 Lott 400 350 Other: Voiding Method Indwelling Catheter Indwelling Catheter Bowel Movement yes,flexizeal Weight Measurement Method Built in [facility] Constitutional: Yes: No Distress, Calm, Cachectic, Thin, Other Eyes: Yes: Conjunctiva Clear, EOM Intact, PERRL HENT: Yes: Atraumatic, Normocephalic Neck: Yes: Supple, Trachea Midline Cardiovascular: Yes: Regular Rate and Rhythm, S1, S2 Respiratory: Yes: Regular, Mechanically Ventilated, Rales Gastrointestinal: Yes: Normal Bowel Sounds, Soft, Other (open midline wound, poor grauulation with fribrious exudate. Upper [id number] lower [id number] VAC dressing applied white foam and granulofoam @125mmHg continuous). No: Tenderness, Tenderness, Rebound ...Rectal Exam: Yes: Deferred Genitourinary: No: CVA Tenderness - Left, CVA Tenderness - Right Breast(s): No: Mass, Skin Changes Musculoskeletal: No: Muscle Pain, Muscle Weakness Extremities: No: Cool, Cyanosis Edema: No Edema: LUE: 2+, RUE: 2+, LLE: 2+, RLE: 2+ Peripheral Pulses WNL: Yes Peripheral Pulses: Left Radial: 2+, Right Radial: 2+, Left Doralis Pedis: 2+, Right Dorsalis Pedis: 2+, Left Femoral: 2+, Right Femoral: 2+ Integumentary: No: Pressure Ulcer, Rash Neurological: Yes: Alert. No: Oriented Psychiatric: Yes: Alert. No: Oriented Labs: CBC, BMP 03/25/19 05:30 03/25/19 12:55 INR, PTT INR 1.49 (0.83-1.09) H 03/19/19 23:15 Fibrinogen 359.0 mg/dL (238-498) 03/19/19 23:15 Microbiology 03/21/19 13:25 Blood - Central Line Blood Culture - Preliminary NO GROWTH OBTAINED AFTER 96 HOURS, INCUBATION TO CONTINUE FOR 1 DAYS. 03/23/19 19:00 Sputum - Endotrachea Suction/Ventilator Gram Stain - Final 03/23/19 19:00 Sputum - Endotrachea Suction/Ventilator Sputum Culture - Preliminary Yeast Like Organism 03/23/19 19:00 Urine - Urine Lott Urine Culture - Final NO GROWTH OBTAINED 03/21/19 18:15 Blood - Central Line Blood Culture - Preliminary NO GROWTH OBTAINED AFTER 72 HOURS, INCUBATION TO CONTINUE FOR 2 DAYS. 03/12/19 19:30 Peritoneal Fluid Gram Stain - Final 03/12/19 19:30 Peritoneal Fluid Body Fluid Culture - Final Klebsiella Pneumoniae - Esbl Enterococcus Faecalis 03/12/19 19:30 Peritoneal Fluid Anaerobic Culture - Final NO ANAEROBES WERE ISOLATED 03/14/19 23:00 Stool Clostridioides difficile Antigen - Final 03/14/19 23:00 Stool Clostridioides difficile Toxin Assay - Final 03/10/19 08:30 Blood - Arterial Blood Culture - Final NO GROWTH AFTER 5 DAYS INCUBATION 03/10/19 08:00 Blood - Arterial Blood Culture - Final NO GROWTH AFTER 5 DAYS INCUBATION 03/09/19 17:00 Urine - Urine Clean Catch Urine Culture - Final Vr Ec Faecium - ....Imaging Chest X-ray: Report Reviewed, Image Reviewed X-ray: Report Reviewed, Image Reviewed Cat Scan: Report Reviewed, Image Reviewed Problem List - Problems (1) Small bowel obstruction Assessment/Plan: 48yo female with MMP including SBO, chronic constipation, Gastroparesis and crohns disease presenting with Abdominal pain. She has several possible explanations for this pain. POD#13 Exp Lap and Segmental resection of small intestinal perforation. Poor saturation and hospital acquired infections ESBL and Cdiff. Intubated overnight. GIB now improved H&H following transfusion. Monitored Setting ICU management VAC dressing APPLIED 03/[address] PANDA due 03/28 treat Cdiff and ESBL Transfuse as need crohns management will follow This patient is critically ill. Time spent reviewing chart, examining patient, talking with providers and/or family and documentation is 55 minutes. Problems reviewed: Yes Code(s): K56.609 - UNSP INTESTNL OBST, UNSP TO PARTIAL VERSUS COMPLETE OBST (2) Abdominal pain Problems reviewed: Yes Code(s): R10.9 - UNSPECIFIED ABDOMINAL PAIN Qualifiers: Abdominal location: generalized Qualified Code(s): R10.84 - Generalized abdominal pain (3) Crohn's disease Problems reviewed: Yes Code(s): K50.90 - CROHN'S DISEASE, UNSPECIFIED, WITHOUT COMPLICATIONS Qualifiers: Gastrointestinal tract location: small intestine Digestive disease complication type: with rectal bleeding Qualified Code(s): K50.011 - Crohn's disease of small intestine with rectal bleeding (4) DKA (diabetic ketoacidoses) Problems reviewed: Yes Code(s): E13.10 - OTH DIABETES MELLITUS WITH KETOACIDOSIS WITHOUT COMA Qualifiers: Diabetes mellitus type: type 1 Diabetes mellitus complication detail: without coma Qualified Code(s): E10.10 - Type 1 diabetes mellitus with ketoacidosis without coma (5) Nausea & vomiting Problems reviewed: Yes Code(s): R11.2 - NAUSEA WITH VOMITING, UNSPECIFIED Qualifiers: Vomiting type: cyclical vomiting Vomiting Intractability: intractable Qualified Code(s): G43.A1 - Cyclical vomiting, intractable (6) Cerebrovascular accident (CVA) Problems reviewed: Yes Code(s): I63.9 - CEREBRAL INFARCTION, UNSPECIFIED Qualifiers: CVA mechanism: unspecified Qualified Code(s): I63.9 - Cerebral infarction, unspecified
--- NOTE | 2019-03-25 14:49 | PN ---
Physical Exam: SUBJECTIVE: Patient seen and examined at bedside in the ICU. Patient remains intubated and sedated with propofol and fentanyl. Patient is off pressors. OBJECTIVE: Vital Signs Period Temp Pulse Resp BP Sys/Rapp Pulse Ox Last 24 Hr 99 F-101.5 F 62-131 19-32 89-138/57-83 98-100 GENERAL: The patient is intubated and sedated. Does not appear to be in acute distress. HEAD: Normal with no signs of trauma. EYES: PERRL, sclera anicteric, conjunctiva clear. No ptosis. ENT: Ears normal, nares patent. NECK: Trachea midline, supple. LUNGS: Breath sounds equal, no accessory muscle use. Diffuse rhonchi in bilateral lung mclaughlin. HEART: Regular rate and rhythm, S1, S2 without murmur, rub or gallop. ABDOMEN: Soft, nontender, nondistended, normoactive bowel sounds, no guarding, no rebound, no hepatosplenomegaly, no masses. Surgical incision with packing and bandage in abdominal midline with mild discharge. EXTREMITIES: 2+ pulses, warm, well-perfused, no edema. NEUROLOGICAL: Cranial nerves II through XII grossly intact. SKIN: Warm, dry, normal turgor, no rashes or lesions noted Laboratory Results - last 24 hr 03/24/19 03/24/19 03/25/19 17:45 21:40 03:08 WBC RBC Hgb Hct MCV MCH MCHC RDW Plt Count MPV Absolute Neuts (auto) Neutrophils % Lymphocytes % Monocytes % Eosinophils % Basophils % Nucleated RBC % Sodium Potassium Chloride Carbon Dioxide Anion Gap BUN Creatinine Est GFR (CKD-EPI)AfAm Est GFR (CKD-EPI)NonAf POC Glucometer 109 249 225 Random Glucose Calcium Phosphorus Magnesium Total Bilirubin AST ALT Alkaline Phosphatase Total Protein Albumin 03/25/19 03/25/19 03/25/19 05:30 05:30 05:32 WBC 8.6 RBC 3.42 L Hgb 8.9 L Hct 27.2 L MCV 79.4 L MCH 26.1 MCHC 32.8 RDW 23.7 H Plt Count 179 D MPV 8.2 Absolute Neuts (auto) 5.8 Neutrophils % 67.7 Lymphocytes % 23.2 Monocytes % 6.0 Eosinophils % 2.2 Basophils % 0.9 Nucleated RBC % 0 Sodium 142 Potassium 3.5 Chloride 104 Carbon Dioxide 31 Anion Gap 7 L BUN 16.2 Creatinine 0.4 L Est GFR (CKD-EPI)AfAm 141.75 Est GFR (CKD-EPI)NonAf 122.30 POC Glucometer 118 Random Glucose 120 H Calcium 7.2 L Phosphorus 2.0 L Magnesium 1.9 Total Bilirubin 0.2 AST 16 ALT 10 L Alkaline Phosphatase 184 H Total Protein 4.6 L Albumin 1.2 L 03/25/19 03/25/19 03/25/19 10:53 12:55 14:23 WBC RBC Hgb Hct MCV MCH MCHC RDW Plt Count MPV Absolute Neuts (auto) Neutrophils % Lymphocytes % Monocytes % Eosinophils % Basophils % Nucleated RBC % Sodium 137 Potassium 3.7 Chloride 101 Carbon Dioxide 27 Anion Gap 9 BUN 19.9 H Creatinine 0.6 Est GFR (CKD-EPI)AfAm 124.05 Est GFR (CKD-EPI)NonAf 107.03 POC Glucometer 401 186 Random Glucose 312 H Calcium 7.3 L Phosphorus Magnesium Total Bilirubin 0.3 AST 18 ALT 12 L Alkaline Phosphatase 216 H Total Protein 5.2 L Albumin 1.4 L Active Medications Generic Name Dose Route Start Last Admin Trade Name Freq PRN Reason Stop Dose Admin Acetaminophen 1,000 mg 03/22/19 16:17 03/25/19 11:03 Ofirmev Injection - IVPB 1,000 mg Q6H PRN Administration PAIN OR FEVER Amino Acids 30 ml 03/19/19 08:00 03/25/19 12:06 Prosource No Carb Liquid Pkt PO 30 ml TIDCM [facility] Administration Enoxaparin Sodium 110 mg 03/17/19 13:00 03/25/19 09:42 Lovenox - SQ 110 mg DAILY [facility] Administration Hydromorphone HCl 1 mg 03/25/19 11:38 03/25/19 12:11 Dilaudid Vial - IVPB 1 mg Q4H PRN Administration PAIN LEVEL 1-5 Linezolid 600 mg in 300 mls @ 300 mls/hr 03/18/19 11:45 03/25/19 12:06 Zyvox 600 Mg Premix Bag (Restricted To Id) - IVPB 300 mls/hr Q12H [facility] Administration Protocol Fentanyl 500 mcg/ Dextrose 100 mls @ 10 mls/hr 03/20/19 09:30 03/25/19 10:49 IVPB 50 mcg/hr TITR [facility] 10 mls/hr Administration Protocol 50 MCG/HR Meropenem 1 gm/ Dextrose 100 mls @ 200 mls/hr 03/21/19 18:00 03/25/19 09:40 IVPB 200 mls/hr Q8H-IV [facility] Administration Propofol 1,000,000 mcg in 100 mls @ 4.041 mls/hr 03/24/19 00:15 03/25/19 11: 00 Diprivan - IVPB 15 mcg/kg/min TITR [facility] 6.062 mls/hr Titration Protocol 10 MCG/KG/MIN Dexmedetomidine HCl 400 mcg/ 100 mls @ 3.36 mls/hr 03/24/19 12:45 03/25/19 14 :25 Sodium Chloride IVPB 0.77 mcg/kg/hr TITR [facility] 13 mls/hr Administration 0.2 MCG/KG/HR Insulin Aspart 1 vial 03/25/19 05:08 03/25/19 14:27 Novolog Vial Sliding Scale - SQ 2 units Q4HWA [facility] Administration Protocol Ondansetron HCl 4 mg 03/11/19 20:31 03/14/19 05:07 Zofran Injection IVPUSH 4 mg Q6H PRN Administration NAUSEA AND/OR VOMITING Pantoprazole Sodium 40 mg 03/20/19 10:00 03/25/19 09:43 Protonix Iv IVPUSH 40 mg DAILY [facility] Administration Vancomycin HCl 125 mg 03/15/19 18:00 03/25/19 12:07 Vancomycin Oral Solution PO 125 mg Q6HPO [facility] Administration ASSESSMENT/PLAN: 48F PMH IDDM, PE on xarelto, frequent DKA, HTN, HLD, CVA w/ left sided weakness , recent hospitalization at [facility] September 2018 admitted to ICU for SBO. Developed pneumoperitoneum s/p ex-lap. POD #11 Neuro - sedated - intubated - unable to wean off sedation to assess mental status, add on presedex for sedative - sedation vacation attempted, patient responsive only to light, unable to follow commands and unable to respond to pain or noxious stimuli - Tylenol for pain/fever ctrl - dilaudid 1 mg q4h PRN for pain control CV - hx of transient a-fib with RVR - sinus tachy 105 - No longer hypotensive - Maintain MAP >65 - continue pressors - if persistent a-fib start amiodarone Respiratory - Patient remains intubated tried to wean sedation but unable to bc of tachycardia and tachypnea. - Lasix IV 40 one time - monitor resp status - sedation vacation attempted, patient began having increased work of breathing and was placed back on sedation GI - Crohn's flair likely, pneumoperitoneum s/p ex-lap - GI recs appreciated continuing w/ C diff management - confirmed with surgery regarding CT abdomen and pelvis with contrast via NG tube and IV contrast to assess for a fluid collection/other cause of infection. ID-> C diff - c/w vanco, sylvester - Cx + LF neg bacilli - UCx + VRE - CDiff Ag and toxin pos - WBC 8.6 Endocrine - d/c levemir - novolog SS - d/c tube feeds due to emesis. FEN - Lytes in AM, replete PRN - potassium repleted (goal of 4) - Mg repleted - Phos repleted - Monitor I/Os - Monitor UrO, Cr PPx: Lovenox 110, SCDs Dispo: continue ICU care Visit type - Emergency Visit Emergency Visit: Yes ED Registration Date: 03/09/19 Care time: The patient presented to the Emergency Department on the above date and was hospitalized for further evaluation of their emergent condition. - New Patient This patient is new to me today: No - Critical Care Critical Care patient: Yes Total Critical Care Time (in minutes): 35 Critical Care Statement: The care of this patient involved high complexity decision making to prevent further life threatening deterioration of the patient 's condition and/or to evaluate & treat vital organ system(s) failure or risk of failure. ATTENDING PHYSICIAN STATEMENT I saw and evaluated the patient. I reviewed the resident's note and discussed the case with the resident. I agree with the resident's findings and plan as documented. SUBJECTIVE: OBJECTIVE: ASSESSMENT AND PLAN:
[2019-03-25] MEDS ORDERED: BENZOIN/ALOE VERA/STORAX/TOLU 58 ML BOTTLE ONE (15:08)
[2019-03-25] MEDS ORDERED: SODIUM PHOSPHATE - 15 MM in DEXTROSE 5%-WATER - 250 ML IVPB ONE (15:15)
[2019-03-25] MEDS ORDERED: MAGNESIUM SULF 50% (8.12 MEQ/2 ML-1 GM VIAL) IVPB ONE (15:17)
[2019-03-25] MEDS: KCL 10 MEQ IVPB 10 MEQ/100 ML INFUS.BAG IVPB SCH ×2 (16:19→17:19)
--- NOTE | 2019-03-25 17:15 | PN ---
Progress Note, Physician History of Present Illness: Pt intubated, sedated. Tachycardic, HR better controlled. Febrile currently Tmax 101.5F. - Current Medication List Current Medications: Active Medications Acetaminophen (Ofirmev Injection -) 1,000 mg IVPB Q6H PRN PRN Reason: PAIN OR FEVER Last Admin: 03/25/19 11:03 Dose: 1,000 mg Amino Acids (Prosource No Carb Liquid Pkt) 30 ml PO TIDCM [facility] Last Admin: 03/25/19 16:41 Dose: 30 ml Enoxaparin Sodium (Lovenox -) 110 mg SQ DAILY [facility] Last Admin: 03/25/19 09:42 Dose: 110 mg Hydromorphone HCl (Dilaudid Vial -) 1 mg IVPB Q4H PRN PRN Reason: PAIN LEVEL 1-5 Last Admin: 03/25/19 12:11 Dose: 1 mg Linezolid (Zyvox 600 Mg Premix Bag (Restricted To Id) -) 600 mg in 300 mls @ 300 mls/hr IVPB Q12H [facility]; Protocol Last Admin: 03/25/19 12:06 Dose: 300 mls/hr Fentanyl 500 mcg/ Dextrose 100 mls @ 10 mls/hr IVPB TITR [facility]; Protocol Last Admin: 03/25/19 10:49 Dose: 50 mcg/hr, 10 mls/hr Meropenem 1 gm/ Dextrose 100 mls @ 200 mls/hr IVPB Q8H-IV [facility] Last Admin: 03/25/19 17:01 Dose: 200 mls/hr Propofol (Diprivan -) 1,000,000 mcg in 100 mls @ 4.041 mls/hr IVPB TITR [facility]; Protocol Last Titration: 03/25/19 11:00 Dose: 15 mcg/kg/min, 6.062 mls/hr Dexmedetomidine HCl 400 mcg/ (Sodium Chloride) 100 mls @ 3.36 mls/hr IVPB TITR [facility] Last Admin: 03/25/19 14:25 Dose: 0.77 mcg/kg/hr, 13 mls/hr Sodium Phosphate 15 mm/ (Dextrose) 255 mls @ 62.5 mls/hr IVPB ONCE ONE Stop: 03/25/19 19:19 Potassium Chloride (Potassium Chloride 10 Meq Premix Ivpb -) 10 meq in 100 mls @ 100 mls/hr IVPB Q60M [facility] Stop: 03/25/19 17:29 Last Admin: 03/25/19 16:19 Dose: 100 mls/hr Insulin Aspart (Novolog Vial Sliding Scale -) 1 vial SQ Q4HWA [facility]; Protocol Last Admin: 03/25/19 17:00 Dose: 2 units Ondansetron HCl (Zofran Injection) 4 mg IVPUSH Q6H PRN PRN Reason: NAUSEA AND/OR VOMITING Last Admin: 03/14/19 05:07 Dose: 4 mg Pantoprazole Sodium (Protonix Iv) 40 mg IVPUSH DAILY [facility] Last Admin: 03/25/19 09:43 Dose: 40 mg Vancomycin HCl (Vancomycin Oral Solution) 125 mg PO Q6HPO [facility] Last Admin: 03/25/19 12:07 Dose: 125 mg - Objective Vital Signs: Vital Signs Temperature 101.0 F H 03/25/19 16:00 Pulse Rate 104 H 03/25/19 16:00 Respiratory Rate 21 H 03/25/19 16:00 Blood Pressure 89/58 L 03/25/19 16:00 O2 Sat by Pulse Oximetry (%) 100 03/24/19 22:00 Constitutional: Yes: Other (sedated) Eyes: Yes: Conjunctiva Clear HENT: Yes: Atraumatic Cardiovascular: Yes: Tachycardia Respiratory: Yes: Mechanically Ventilated, Rhonchi (b/l) Gastrointestinal: Yes: Normal Bowel Sounds, Soft Genitourinary: Yes: Lott Present Edema: LLE: 2+, RLE: 2+ Integumentary: Yes: WNL Wound/Incision: Yes: Dressing Dry and Intact Neurological: Yes: Other (on sedation) Labs: CBC, BMP 03/25/19 05:30 03/25/19 12:55 INR, PTT INR 1.49 (0.83-1.09) H 03/19/19 23:15 Fibrinogen 359.0 mg/dL (238-498) 03/19/19 23:15 Microbiology 03/21/19 13:25 Blood - Central Line Blood Culture - Preliminary NO GROWTH OBTAINED AFTER 96 HOURS, INCUBATION TO CONTINUE FOR 1 DAYS. 03/23/19 19:00 Sputum - Endotrachea Suction/Ventilator Gram Stain - Final 03/23/19 19:00 Sputum - Endotrachea Suction/Ventilator Sputum Culture - Preliminary Yeast Like Organism 03/23/19 19:00 Urine - Urine Lott Urine Culture - Final NO GROWTH OBTAINED 03/21/19 18:15 Blood - Central Line Blood Culture - Preliminary NO GROWTH OBTAINED AFTER 72 HOURS, INCUBATION TO CONTINUE FOR 2 DAYS. 03/12/19 19:30 Peritoneal Fluid Gram Stain - Final 03/12/19 19:30 Peritoneal Fluid Body Fluid Culture - Final Klebsiella Pneumoniae - Esbl Enterococcus Faecalis 03/12/19 19:30 Peritoneal Fluid Anaerobic Culture - Final NO ANAEROBES WERE ISOLATED 03/14/19 23:00 Stool Clostridioides difficile Antigen - Final 03/14/19 23:00 Stool Clostridioides difficile Toxin Assay - Final 03/10/19 08:30 Blood - Arterial Blood Culture - Final NO GROWTH AFTER 5 DAYS INCUBATION 03/10/19 08:00 Blood - Arterial Blood Culture - Final NO GROWTH AFTER 5 DAYS INCUBATION 03/09/19 17:00 Urine - Urine Clean Catch Urine Culture - Final Vr Ec Faecium - ....Imaging Chest X-ray: Report Reviewed Cat Scan: Report Reviewed Problem List - Problems (1) Diabetes Code(s): E11.9 - TYPE 2 DIABETES MELLITUS WITHOUT COMPLICATIONS (2) HLD (hyperlipidemia) Code(s): E78.5 - HYPERLIPIDEMIA, UNSPECIFIED (3) HTN (hypertension) Code(s): I10 - ESSENTIAL (PRIMARY) HYPERTENSION (4) Crohn's disease Code(s): K50.90 - CROHN'S DISEASE, UNSPECIFIED, WITHOUT COMPLICATIONS (5) Cerebrovascular accident (CVA) Code(s): I63.9 - CEREBRAL INFARCTION, UNSPECIFIED Qualifiers: CVA mechanism: unspecified Qualified Code(s): I63.9 - Cerebral infarction, unspecified (6) Diabetes mellitus, insulin dependent (IDDM), uncontrolled Code(s): E10.65 - TYPE 1 DIABETES MELLITUS WITH HYPERGLYCEMIA Assessment/Plan 48 y.o. female with PMH of uncontrolled IDDM and DKA, Crohn's disease on prednisone, CVA, PE, HTN, HLD presenting with abdominal pain Acute Respiratory failure on MV/sedation s/p cardiopulmonary arrest Septic Shock Fever SB perforation s/p Ex-lap/RAYSHAWN/partial SB and omental resection with anastomosis/ washout Peritonitis C diff colitis Crohn's disease IDDM Hx of multiple DKA Hx of CVA Hx of PE HTN HLD -- imaging/all lab results noted -- pt with fever 101.5F, intubated, sedated -- continue current antibiotics, will give one dose Caspofungin, then re-assess for daily dosing -- repeat blood cultures -- monitor vitals -- rest of care per ICU Pt remains critically ill cc time: 45min
--- NOTE | 2019-03-25 17:48 | PN.GI ---
GI Progress Note Subjective: No acute events Remains intubated, sedated Having fevers 300 cc stool output reported Spoke with Ms. Alison Matthews's hot press operator at [facility]. Apparently pathology from small bowel surgery in 11/15 confirmed diagnosis of Crohn's. - Objective Vital Signs: Vital Signs Temperature 101.0 F H 03/25/19 16:00 Pulse Rate 104 H 03/25/19 16:00 Respiratory Rate 21 H 03/25/19 16:00 Blood Pressure 89/58 L 03/25/19 16:00 O2 Sat by Pulse Oximetry (%) 100 03/24/19 22:00 Constitutional: Calm Eyes: No: Sclera Icterus Cardiovascular: Yes: Tachycardia Respiratory: Yes: Diminished (at bases bilaterally) Gastrointestinal Inspection: No: Distention ...Auscultate: Yes: Normoactive Bowel Sounds Edema: Yes Edema: LLE: 1+, RLE: 1+ Neurological: Yes: Other (Sedated, intubated) Labs: CBC, BMP 03/25/19 05:30 03/25/19 12:55 INR, PTT INR 1.49 (0.83-1.09) H 03/19/19 23:15 Fibrinogen 359.0 mg/dL (238-498) 03/19/19 23:15 Problem List - Problems (1) Small bowel perforation Assessment/Plan: Post op care per surgery Code(s): K63.1 - PERFORATION OF INTESTINE (NONTRAUMATIC) (2) Clostridium difficile diarrhea Assessment/Plan: Continue Vancocin 125mg PO q6 hours Code(s): A04.72 - ENTEROCOLITIS D/T CLOSTRIDIUM DIFFICILE, NOT SPCF RECUR
[2019-03-25] MEDS ORDERED: CASPOFUNGIN ACETATE 70 MG in SODIUM CHLORIDE 250 ML IVPB ONE (18:00)
[2019-03-26] MEDS: PROPOFOL 1,000,000 MCG/100 ML VIAL IVPB SCH ×3 (00:19→23:53)
[2019-03-26] MEDS ORDERED: MEROPENEM 1 GM VIAL (RESTRICTED TO ID) IVPB ONE ×4 (01:31→21:37)
[2019-03-26] MEDS ORDERED: DEXTROSE 5%-WATER 100 ML IVPB ONE ×4 (01:31→21:37)
[2019-03-26] MEDS: MEROPENEM 1 GM in DEXTROSE 5%-WATER 100 ML IVPB SCH ×3 (01:44→18:48)
[2019-03-26] MEDS: INSULIN SLIDING SCALE (NOVOLOG) 1 VIAL SQ SCH ×6 (02:28→22:45)
[2019-03-26] MEDS ORDERED: HYDROmorphone HCl 2 MG/ML VIAL IVPB PRN (04:22)
[2019-03-26] MEDS: VANCOMYCIN 250 MG/5 ML ORAL SOLUTION PO SCH ×4 (05:08→23:53)
[2019-03-26 07:25] LABS: EOS % 3.2 % (0-4.5); HEMATOCRIT 23.5 % (32.4-45.2); HEMOGLOBIN 7.6 GM/dL (10.7-15.3); LYMPH % 24.4 % (8-40); MCH 26.1 pg (25.7-33.7); MCHC 32.4 g/dl (32.0-36.0); MEAN CELL VOLUME 80.5 fl (80-96); MEAN PLT VOLUME 8.1 fl (7.5-11.1); MONO % 7.8 % (3.8-10.2); NEUT % 63.6 % (42.8-82.8); PLATELET COUNT 231 K/MM3 (134-434); RBC 2.92 M/mm3 (3.60-5.2); RDW 23.5 % (11.6-15.6); WHITE BLOOD COUNT 8.5 K/mm3 (4.0-10.0)
[2019-03-26 07:39] LABS: INR 0.95 (0.83-1.09); PROTHROMBIN TIME (PATIENT) 11.2 SEC (9.7-13.0)
[2019-03-26 07:41] LABS: ACTIVATED PTT 29.7 SECONDS (25.2-36.5)
[2019-03-26] MEDS: AMINO ACIDS/PROTEIN HYDROLYS 30 ML LIQUID.PKT PO SCH ×3 (07:46→16:41)
[2019-03-26 07:49] LABS: ALBUMIN 1.2 g/dl (3.4-5.0); BILIRUBIN,TOTAL 0.2 mg/dL (0.2-1); BLOOD UREA NITROGEN 14.5 mg/dL (7-18); CALCIUM 7.1 mg/dL (8.5-10.1); CREATININE 0.3 mg/dL (0.55-1.3); POTASSIUM 3.8 mmol/L (3.5-5.1); TOT PROT 4.3 g/dl (6.4-8.2)
[2019-03-26] MEDS: DEXMEDETOMIDINE HCL 400 MCG in SODIUM CHLORIDE 96 ML IVPB SCH ×3 (08:00→18:30)
--- NOTE | 2019-03-26 08:16 | PN ---
Progress Note, Physician Chief Complaint: orally intubated and sedated History of Present Illness: 48 year-old female with a PMH significant for Type I IDDM, frequent admissions for DKA, HTN, HLD, CVA with left-sided weakness. Recent hospitalization at [facility] September 2018 for SBO. She is s/p post exploratory lap and resection of illial perforation 03/12. Post op course treated for bacteremia and C-Diff. AC was restarted post op (lovenox 110). She became pulseless on 03/19/19 at 0600 and CPR was initiated. She was given epi and intubated to protect airway. tele showed rapid afib. She had a troponin elevation and her ekg w/o st elevations. she was evaluated by cardiology and remains intubated in the ICU. She continues to have agonal breathing. - Current Medication List Current Medications: Active Medications Acetaminophen (Ofirmev Injection -) 1,000 mg IVPB Q6H PRN PRN Reason: PAIN OR FEVER Last Admin: 03/25/19 11:03 Dose: 1,000 mg Amino Acids (Prosource No Carb Liquid Pkt) 30 ml PO TIDCM [facility] Last Admin: 03/26/19 07:46 Dose: 30 ml Enoxaparin Sodium (Lovenox -) 110 mg SQ DAILY [facility] Last Admin: 03/25/19 09:42 Dose: 110 mg Hydromorphone HCl (Dilaudid Vial -) 1 mg IVPB Q4H PRN PRN Reason: PAIN LEVEL 1-5 Linezolid (Zyvox 600 Mg Premix Bag (Restricted To Id) -) 600 mg in 300 mls @ 300 mls/hr IVPB Q12H [facility]; Protocol Last Admin: 03/25/19 23:19 Dose: 300 mls/hr Fentanyl 500 mcg/ Dextrose 100 mls @ 10 mls/hr IVPB TITR [facility]; Protocol Last Admin: 03/25/19 20:45 Dose: 50 mcg/hr, 10 mls/hr Meropenem 1 gm/ Dextrose 100 mls @ 200 mls/hr IVPB Q8H-IV [facility] Last Admin: 03/26/19 01:44 Dose: 200 mls/hr Propofol (Diprivan -) 1,000,000 mcg in 100 mls @ 4.041 mls/hr IVPB TITR [facility]; Protocol Last Admin: 03/26/19 00:19 Dose: Not Given Dexmedetomidine HCl 400 mcg/ (Sodium Chloride) 100 mls @ 3.36 mls/hr IVPB TITR [facility] Last Admin: 03/25/19 21:51 Dose: 0.77 mcg/kg/hr, 13 mls/hr Insulin Aspart (Novolog Vial Sliding Scale -) 1 vial SQ Q4H [facility]; Protocol Last Admin: 03/26/19 05:18 Dose: 2 units Ondansetron HCl (Zofran Injection) 4 mg IVPUSH Q6H PRN PRN Reason: NAUSEA AND/OR VOMITING Last Admin: 03/14/19 05:07 Dose: 4 mg Pantoprazole Sodium (Protonix Iv) 40 mg IVPUSH DAILY [facility] Last Admin: 03/25/19 09:43 Dose: 40 mg Vancomycin HCl (Vancomycin Oral Solution) 125 mg PO Q6HPO [facility] Last Admin: 03/26/19 05:08 Dose: 125 mg - Objective Vital Signs: Vital Signs Temperature 98.8 F 03/26/19 08:00 Pulse Rate 85 03/26/19 08:00 Respiratory Rate 20 03/26/19 08:00 Blood Pressure 93/61 03/26/19 08:00 O2 Sat by Pulse Oximetry (%) 100 03/26/19 00:00 Labs: CBC, BMP 03/26/19 06:00 03/26/19 06:00 INR, PTT INR 0.95 (0.83-1.09) 03/26/19 06:00 Fibrinogen 359.0 mg/dL (238-498) 03/19/19 23:15 Problem List - Problems (1) HLD (hyperlipidemia) Assessment/Plan: NPO Code(s): E78.5 - HYPERLIPIDEMIA, UNSPECIFIED (2) Left-sided weakness Assessment/Plan: movement noted to right UE PT when no longer requiring ICU monitoring Code(s): R53.1 - WEAKNESS (3) History of open heart surgery Code(s): Z98.890 - OTHER SPECIFIED POSTPROCEDURAL STATES (4) Acute Crohn's disease Assessment/Plan: history of chrons followed at [facility], was suppose to start infliximab but never followed through off steroids Code(s): K50.90 - CROHN'S DISEASE, UNSPECIFIED, WITHOUT COMPLICATIONS (5) Gastroparesis Code(s): K31.84 - GASTROPARESIS (6) Abdominal pain Assessment/Plan: s/p bowel resection with viscous repair general surgery following wound dihensence noted at distal portion, vac in place dressing changes as per surgery Code(s): R10.9 - UNSPECIFIED ABDOMINAL PAIN Qualifiers: Abdominal location: generalized Qualified Code(s): R10.84 - Generalized abdominal pain (7) Small bowel obstruction Assessment/Plan: s/p perforated viscus repair dressing changes as per surgical team Code(s): K56.609 - UNSP INTESTNL OBST, UNSP TO PARTIAL VERSUS COMPLETE OBST (8) Cerebrovascular accident (CVA) Assessment/Plan: left sided weakness PT to follow when no longer requiring ICU care Code(s): I63.9 - CEREBRAL INFARCTION, UNSPECIFIED Qualifiers: CVA mechanism: unspecified Qualified Code(s): I63.9 - Cerebral infarction, unspecified (9) Chronic pain Assessment/Plan: sedated with precedex/ fentanyl/profolol Code(s): G89.29 - OTHER CHRONIC PAIN Qualifiers: Chronic pain type: chronic pain syndrome Qualified Code(s): G89.4 - Chronic pain syndrome (10) Prophylactic measure Assessment/Plan: FEN Jevity monitor electrolytes IVF DVT lovenox sq Dispo requires ICU care full code palliative care following-HCP being sent from [facility] prognosis critical discharge planning Code(s): Z29.9 - ENCOUNTER FOR PROPHYLACTIC MEASURES, UNSPECIFIED (11) Diabetes Assessment/Plan: BGM q4h careful glycemic control with multiple episodes of DKA c/w D10 levemir stopped Code(s): E11.9 - TYPE 2 DIABETES MELLITUS WITHOUT COMPLICATIONS (12) Perforated abdominal viscus Assessment/Plan: s/p Ex-lap/RAYSHAWN/partial SB and omental resection with anastomosis/washou appreciate surgical and ID consultation c/w abx Code(s): [id number] - (13) Hypoxia Assessment/Plan: orally intuabted on mechanical ventilation attempt weaning trial if more responsive off sedation lasix IV given yesterday appreciate ICU level of care Code(s): R09.02 - HYPOXEMIA (14) C. difficile diarrhea Assessment/Plan: Diarrhea has improved, elevated lactate and mild leucocytosis noted. -Continue vancomycin PO -c/w rectal tube Code(s): A04.72 - ENTEROCOLITIS D/T CLOSTRIDIUM DIFFICILE, NOT SPCF RECUR (15) ESBL (extended spectrum beta-lactamase) producing bacteria infection Assessment/Plan: ESBL in wound appreciate ID consultation -Dr. Pimentel c/w linezolid, vanco, sylvester - Cx + LF neg bacilli - UCx + VRE - CDiff Ag and toxin pos - WBC down to 8.5 Code(s): A49.9 - BACTERIAL INFECTION, UNSPECIFIED; Z16.12 - EXTENDED SPECTRUM BETA LACTAMASE (ESBL) RESISTANCE (16) Clostridium difficile diarrhea Code(s): A04.72 - ENTEROCOLITIS D/T CLOSTRIDIUM DIFFICILE, NOT SPCF RECUR (17) Hypotension Assessment/Plan: norepi gtt titrate to off maintaining MAP>60 Code(s): I95.9 - HYPOTENSION, UNSPECIFIED (18) Admitted to intensive care unit Assessment/Plan: appreciate ICU level of care Code(s): Z78.9 - OTHER SPECIFIED HEALTH STATUS Visit type - Emergency Visit Emergency Visit: Yes ED Registration Date: 03/09/19 Care time: The patient presented to the Emergency Department on the above date and was hospitalized for further evaluation of their emergent condition. - New Patient This patient is new to me today: No - Critical Care Critical Care patient: Yes Total Critical Care Time (in minutes): 35 Critical Care Statement: The care of this patient involved high complexity decision making to prevent further life threatening deterioration of the patient 's condition and/or to evaluate & treat vital organ system(s) failure or risk of failure. - Discharge Referral Referred to [facility] Med P.C.: No
[2019-03-26] MEDS ORDERED: fentaNYL CITRATE 250 MCG/5 ML VIAL ONE ×2 (08:58→21:37)
[2019-03-26] MEDS: FENTANYL INJECTION 500 MCG in DEXTROSE 5%-WATER - 90 ML IVPB SCH ×3 (09:11→21:47)
--- NOTE | 2019-03-26 09:33 | PN.GI ---
GI Progress Note Subjective: No acute events VAC dressing placed 300cc brown liquid stool in fecal bag - Objective Vital Signs: Vital Signs Temperature 99.1 F 03/26/19 09:00 Pulse Rate 87 03/26/19 09:00 Respiratory Rate 03/26/19 09:00 Blood Pressure 94/61 03/26/19 09:00 O2 Sat by Pulse Oximetry (%) 100 03/26/19 08:41 Constitutional: Calm Eyes: No: Sclera Icterus Cardiovascular: Yes: Regular Rate and Rhythm Respiratory: Yes: Diminished (at bases bilaterally) Gastrointestinal Inspection: Yes: Other (Midline VAC dressing in place). No: Distention ...Auscultate: Yes: Normoactive Bowel Sounds ...Palpate: No: Tenderness (No grimacing upon palpation) ...Percussion: No: Tympanitic Edema: Yes Edema: LLE: 1+, RLE: 1+ Labs: CBC, BMP 03/26/19 06:00 03/26/19 06:00 INR, PTT INR 0.95 (0.83-1.09) 03/26/19 06:00 Fibrinogen 359.0 mg/dL (238-498) 03/19/19 23:15 Problem List - Problems (1) Small bowel perforation Assessment/Plan: Continued supportive measures Pathology from current surgery revealed severe serositis. Spoke with Dr. Champagne. Not a classic picture of crohn's. There was fibrosis so stricturing may have been involved. Will need to obtain pathology report from prior surgery at [facility] Post op care per surgery Code(s): K63.1 - PERFORATION OF INTESTINE (NONTRAUMATIC) (2) Clostridium difficile diarrhea Assessment/Plan: Diarrhea likely multifactorial including C. Diff, bowel resection, tube feeding and Abx Continue vancocin 125mg PO Q6H Code(s): A04.72 - ENTEROCOLITIS D/T CLOSTRIDIUM DIFFICILE, NOT SPCF RECUR
[2019-03-26] MEDS: PANTOPRAZOLE SODIUM 40 MG VIAL IVPUSH SCH (09:45)
[2019-03-26] MEDS ORDERED: ENOXAPARIN NA (PORCINE) 40 MG/0.4 ML DISP.SYRIN SQ SCH ×2 (10:45→11:00)
--- NOTE | 2019-03-26 11:02 | PN ---
Teaching Attending Note Name of Resident: Howie Chavis ATTENDING PHYSICIAN STATEMENT I saw and evaluated the patient. I reviewed the resident's note and discussed the case with the resident. I agree with the resident's findings and plan as documented. SUBJECTIVE: Patient seen and examined in the ICU. Remains intubated, sedated on propofol and fentanyl. Breathing remains slightly rapid and dyssynchronous but better than yesterday. Off pressors. OBJECTIVE: Intake & Output 03/23/19 03/24/19 03/25/19 03/26/19 23:59 23:59 23:59 23:59 Intake Total 4523 2787 4364.2 1052 Output Total 2700 1400 1550 650 Balance 1823 1387 2814.2 402 Weight 148 lb 8 oz 144 lb 3 oz 146 lb 8 oz 148 lb 9.6 oz Last Vital Signs Temp Pulse Resp BP Pulse Ox 99.4 F 93 H 21 H 102/61 100 03/26/19 10:00 03/26/19 10:00 03/26/19 10:00 03/26/19 10:00 03/26/19 10:00 Active Medications Acetaminophen (Ofirmev Injection -) 1,000 mg IVPB Q6H PRN PRN Reason: PAIN OR FEVER Last Admin: 03/25/19 11:03 Dose: 1,000 mg Amino Acids (Prosource No Carb Liquid Pkt) 30 ml PO TIDCM [facility] Last Admin: 03/26/19 07:46 Dose: 30 ml Enoxaparin Sodium (Lovenox -) 110 mg SQ DAILY [facility] Last Admin: 03/25/19 09:42 Dose: 110 mg Enoxaparin Sodium (Lovenox -) 40 mg SQ Q12H [facility] Hydromorphone HCl (Dilaudid Vial -) 1 mg IVPB Q4H PRN PRN Reason: PAIN LEVEL 1-5 Linezolid (Zyvox 600 Mg Premix Bag (Restricted To Id) -) 600 mg in 300 mls @ 300 mls/hr IVPB Q12H [facility]; Protocol Last Admin: 03/25/19 23:19 Dose: 300 mls/hr Fentanyl 500 mcg/ Dextrose 100 mls @ 10 mls/hr IVPB TITR [facility]; Protocol Last Admin: 03/26/19 09:11 Dose: 50 mcg/hr, 10 mls/hr Meropenem 1 gm/ Dextrose 100 mls @ 200 mls/hr IVPB Q8H-IV [facility] Last Admin: 03/26/19 09:45 Dose: 200 mls/hr Propofol (Diprivan -) 1,000,000 mcg in 100 mls @ 4.041 mls/hr IVPB TITR [facility]; Protocol Last Titration: 03/26/19 09:00 Dose: 0 mcg/kg/min, 0 mls/hr Dexmedetomidine HCl 400 mcg/ (Sodium Chloride) 100 mls @ 3.36 mls/hr IVPB TITR [facility] Last Admin: 03/26/19 08:00 Dose: 0.77 mcg/kg/hr, 12.96 mls/hr Insulin Aspart (Novolog Vial Sliding Scale -) 1 vial SQ Q4H [facility]; Protocol Last Admin: 03/26/19 05:18 Dose: 2 units Ondansetron HCl (Zofran Injection) 4 mg IVPUSH Q6H PRN PRN Reason: NAUSEA AND/OR VOMITING Last Admin: 03/14/19 05:07 Dose: 4 mg Pantoprazole Sodium (Protonix Iv) 40 mg IVPUSH DAILY [facility] Last Admin: 03/26/19 09:45 Dose: 40 mg Vancomycin HCl (Vancomycin Oral Solution) 125 mg PO Q6HPO [facility] Last Admin: 03/26/19 05:08 Dose: 125 mg Gen: Intubated, sedated, tachypneic Heart: RRR Lung: scattered rhonchi Abd: soft, nontender Ext: no edema Laboratory Results - last 24 hr 03/25/19 03/25/19 03/25/19 12:55 14:23 16:10 WBC RBC Hgb Hct MCV MCH MCHC RDW Plt Count MPV Absolute Neuts (auto) Neutrophils % Lymphocytes % Monocytes % Eosinophils % Basophils % Nucleated RBC % PT with INR INR PTT (Actin FS) Sodium 137 Potassium 3.7 Chloride 101 Carbon Dioxide 27 Anion Gap 9 BUN 19.9 H Creatinine 0.6 Est GFR (CKD-EPI)AfAm 124.05 Est GFR (CKD-EPI)NonAf 107.03 POC Glucometer 186 191 Random Glucose 312 H Lactic Acid Calcium 7.3 L Total Bilirubin 0.3 AST 18 ALT 12 L Alkaline Phosphatase 216 H Total Protein 5.2 L Albumin 1.4 L Blood Type Antibody Screen Crossmatch 03/25/19 03/26/19 03/26/19 20:48 01:48 05:06 WBC RBC Hgb Hct MCV MCH MCHC RDW Plt Count MPV Absolute Neuts (auto) Neutrophils % Lymphocytes % Monocytes % Eosinophils % Basophils % Nucleated RBC % PT with INR INR PTT (Actin FS) Sodium Potassium Chloride Carbon Dioxide Anion Gap BUN Creatinine Est GFR (CKD-EPI)AfAm Est GFR (CKD-EPI)NonAf POC Glucometer 276 178 153 Random Glucose Lactic Acid Calcium Total Bilirubin AST ALT Alkaline Phosphatase Total Protein Albumin Blood Type Antibody Screen Crossmatch 03/26/19 03/26/19 03/26/19 06:00 06:00 06:00 WBC 8.5 RBC 2.92 L Hgb 7.6 L Hct 23.5 L MCV 80.5 MCH 26.1 MCHC 32.4 RDW 23.5 H Plt Count 231 D MPV 8.1 Absolute Neuts (auto) 5.4 Neutrophils % 63.6 Lymphocytes % 24.4 Monocytes % 7.8 Eosinophils % 3.2 Basophils % 1.0 Nucleated RBC % 0 PT with INR 11.20 INR 0.95 PTT (Actin FS) 29.7 Sodium 139 Potassium 3.8 Chloride 102 Carbon Dioxide 32 Anion Gap 5 L BUN 14.5 Creatinine 0.3 L Est GFR (CKD-EPI)AfAm 155.82 Est GFR (CKD-EPI)NonAf 134.44 POC Glucometer Random Glucose 151 H Lactic Acid Calcium 7.1 L Total Bilirubin 0.2 AST 15 ALT 9 L Alkaline Phosphatase 155 H Total Protein 4.3 L Albumin 1.2 L Blood Type Antibody Screen Crossmatch 03/26/19 03/26/19 03/26/19 06:00 08:30 10:53 WBC RBC Hgb Hct MCV MCH MCHC RDW Plt Count MPV Absolute Neuts (auto) Neutrophils % Lymphocytes % Monocytes % Eosinophils % Basophils % Nucleated RBC % PT with INR INR PTT (Actin FS) Sodium Potassium Chloride Carbon Dioxide Anion Gap BUN Creatinine Est GFR (CKD-EPI)AfAm Est GFR (CKD-EPI)NonAf POC Glucometer 356 Random Glucose Lactic Acid 2.4 H* Calcium Total Bilirubin AST ALT Alkaline Phosphatase Total Protein Albumin Blood Type A NEGATIVE Antibody Screen Positive Crossmatch See Detail ASSESSMENT AND PLAN: s/p Cardiopulmonary Arrest R/O JUAQUIN Acute Hypoxic Respiratory Failure Perforated Small Bowel s/p ex-lap/RAYSHAWN/segmental SB resection Crohn's Disease Peritonitis +C diff Colitis Septic Shock Lactic Acidosis Volume Overload h/o PE HTN DM Hyperlipidemia Anemia Thrombocytopenia h/o CVA - continue antibiotics per ID - Normal transfusion threshold - monitor urine output, creatinine - off pressors, maintain MAP > 65 - Dose of Lasix today - Glycemic control - Continue anticoagulation - Enteral feeds - Precedex and wean propofol - spontaneous breathing trials as tolerated - Requires continued ICU monitoring Dr Otero Critical care time spent in reviewing chart, evaluating patient and formulating plan 35 min
[2019-03-26] MEDS: ENOXAPARIN NA (PORCINE) 80 MG/0.8 ML DISP.SYRIN SQ SCH ×2 (11:19→19:24)
[2019-03-26] MEDS: LINEZOLID 600 MG PREMIX BAG 600 MG/300 ML BAG IVPB SCH ×2 (11:20→22:45)
[2019-03-26] MEDS: ACETAMINOPHEN 1000 MG/100 ML VIAL (NON FORMULARY) IVPB PRN (11:23)
--- NOTE | 2019-03-26 11:32 | PN ---
Progress Note, Physician Chief Complaint: Abdominal Pain History of Present Illness: 48yo female PMH HTN, CVA (left sided hemiparesis), HLD, IDDM, DKA resulting in multiple admissions, dysphagia, gastroparesis, esophageal stricture (EGD 02/14), c/diff (10/2018), SBO September 2018 (s/p SB resection at [facility] as per pt report) presented to [place] ED on the afternoon of 12/21 with complaints of N/V/D/ abd pain intermittently for years. She has had persistent pain but has had improved hemodynamics after IVF resuscitation. - Current Medication List Current Medications: Active Medications Acetaminophen (Ofirmev Injection -) 1,000 mg IVPB Q6H PRN PRN Reason: PAIN OR FEVER Last Admin: 03/26/19 11:23 Dose: 1,000 mg Amino Acids (Prosource No Carb Liquid Pkt) 30 ml PO TIDCM [facility] Last Admin: 03/26/19 11:23 Dose: 30 ml Enoxaparin Sodium (Lovenox -) 70 mg SQ Q12H [facility] Last Admin: 03/26/19 11:19 Dose: 70 mg Hydromorphone HCl (Dilaudid Vial -) 1 mg IVPB Q4H PRN PRN Reason: PAIN LEVEL 1-5 Linezolid (Zyvox 600 Mg Premix Bag (Restricted To Id) -) 600 mg in 300 mls @ 300 mls/hr IVPB Q12H [facility]; Protocol Last Admin: 03/26/19 11:20 Dose: 300 mls/hr Fentanyl 500 mcg/ Dextrose 100 mls @ 10 mls/hr IVPB TITR [facility]; Protocol Last Admin: 03/26/19 09:11 Dose: 50 mcg/hr, 10 mls/hr Meropenem 1 gm/ Dextrose 100 mls @ 200 mls/hr IVPB Q8H-IV [facility] Last Admin: 03/26/19 09:45 Dose: 200 mls/hr Propofol (Diprivan -) 1,000,000 mcg in 100 mls @ 4.041 mls/hr IVPB TITR [facility]; Protocol Last Titration: 03/26/19 09:00 Dose: 0 mcg/kg/min, 0 mls/hr Dexmedetomidine HCl 400 mcg/ (Sodium Chloride) 100 mls @ 3.36 mls/hr IVPB TITR [facility] Last Admin: 03/26/19 08:00 Dose: 0.77 mcg/kg/hr, 12.96 mls/hr Insulin Aspart (Novolog Vial Sliding Scale -) 1 vial SQ Q4H [facility]; Protocol Last Admin: 03/26/19 11:00 Dose: 10 units Ondansetron HCl (Zofran Injection) 4 mg IVPUSH Q6H PRN PRN Reason: NAUSEA AND/OR VOMITING Last Admin: 03/14/19 05:07 Dose: 4 mg Pantoprazole Sodium (Protonix Iv) 40 mg IVPUSH DAILY [facility] Last Admin: 03/26/19 09:45 Dose: 40 mg Vancomycin HCl (Vancomycin Oral Solution) 125 mg PO Q6HPO [facility] Last Admin: 03/26/19 11:21 Dose: 125 mg - Objective Vital Signs: Vital Signs Temperature 99.4 F 03/26/19 10:00 Pulse Rate 93 H 03/26/19 10:00 Respiratory Rate 21 H 03/26/19 10:00 Blood Pressure 102/61 03/26/19 10:00 O2 Sat by Pulse Oximetry (%) 100 03/26/19 10:00 Vital Signs Period Temp Pulse Resp BP Sys/Rapp Pulse Ox Last 24 Hr 98.8 F-101.5 F 85-131 17-32 89-138/58-83 100-100 Intake & Output 03/25/19 03/26/19 03/26/19 23:59 07:59 15:59 Intake Total 2182.2 1052 Output Total 650 Balance 2182.2 402 Weight 148 lb 9.6 oz Intake: IV 349.2 292 DIPRIVAN - 1,000,000 mcg 73.2 62 In 100 ml @ 10 MCG/KG/MIN 4.041 mls/hr IVPB TITR [facility] Rx#:[id number] Precedex - 400 Mcg In 156 130 Normal Saline - 96 ml @ 0 .2 MCG/KG/HR 3.36 mls/hr IVPB TITR [facility] Rx#: [id number] Sublimaze Injection - 500 120 100 Mcg In D5w - 90 ml @ 50 MCG/HR 10 mls/hr IVPB TITR [facility] Rx#:[id number] IVPB 1200 150 Oral 0 0 Tube Feeding 518 500 Tube Irrigant 115 110 Output: Urine 650 Lott 650 Other: Voiding Method Indwelling Catheter Indwelling Catheter Bowel Movement Yes: liquid, felxiseal Yes Weight Measurement Method Built in [facility] Constitutional: Yes: Well Nourished, No Distress, Calm Eyes: Yes: Conjunctiva Clear, EOM Intact HENT: Yes: Atraumatic, Normocephalic Neck: Yes: Supple, Trachea Midline Cardiovascular: Yes: Regular Rate and Rhythm, S1, S2 Respiratory: Yes: Regular, Mechanically Ventilated, Rales Gastrointestinal: Yes: Normal Bowel Sounds, Soft. No: Tenderness, Tenderness, Epigastrium, Tenderness, Rebound Genitourinary: Yes: Lott Present. No: CVA Tenderness - Left, CVA Tenderness - Right Breast(s): No: Mass, Skin Changes Musculoskeletal: No: Joint Stiffness, Joint Swelling Extremities: No: Cool, Cyanosis Edema: Yes Edema: LUE: 2+, RUE: 2+, LLE: 2+, RLE: 2+ Peripheral Pulses WNL: Yes Peripheral Pulses: Left Radial: 2+, Right Radial: 2+, Left Doralis Pedis: 2+, Right Dorsalis Pedis: 2+, Left Femoral: 2+, Right Femoral: 2+ Integumentary: No: Jaundice, Rash Wound/Incision: Yes: Clean/Dry, Well Approximated, Dressing Dry and Intact, Draining Neurological: Yes: Alert Psychiatric: Yes: Alert, Oriented Labs: CBC, BMP 03/26/19 06:00 03/26/19 06:00 INR, PTT INR 0.95 (0.83-1.09) 03/26/19 06:00 Fibrinogen 359.0 mg/dL (238-498) 03/19/19 23:15 Problem List - Problems (1) Small bowel obstruction Assessment/Plan: 48yo female with MMP including SBO, chronic constipation, Gastroparesis and crohns disease presenting with Abdominal pain. She has several possible explanations for this pain. POD#14 Exp Lap and Segmental resection of small intestinal perforation. Poor saturation and hospital acquired infections ESBL and Cdiff. Intubated overnight. GIB now improved H&H following transfusion. Monitored Setting ICU management VAC dressing due Friday, 03/28 Antibiotics per ID Transfuse as need crohns management will follow This patient is critically ill. Time spent reviewing chart, examining patient, talking with providers and/or family and documentation is 35 minutes. Problems reviewed: Yes Code(s): K56.609 - UNSP INTESTNL OBST, UNSP TO PARTIAL VERSUS COMPLETE OBST (2) Abdominal pain Problems reviewed: Yes Code(s): R10.9 - UNSPECIFIED ABDOMINAL PAIN Qualifiers: Abdominal location: generalized Qualified Code(s): R10.84 - Generalized abdominal pain (3) Crohn's disease Assessment/Plan: Dr. Robertson, GI gastroenterology Problems reviewed: Yes Code(s): K50.90 - CROHN'S DISEASE, UNSPECIFIED, WITHOUT COMPLICATIONS Qualifiers: Gastrointestinal tract location: small intestine Digestive disease complication type: with rectal bleeding Qualified Code(s): K50.011 - Crohn's disease of small intestine with rectal bleeding (4) DKA (diabetic ketoacidoses) Problems reviewed: Yes Code(s): E13.10 - OTH DIABETES MELLITUS WITH KETOACIDOSIS WITHOUT COMA Qualifiers: Diabetes mellitus type: type 1 Diabetes mellitus complication detail: without coma Qualified Code(s): E10.10 - Type 1 diabetes mellitus with ketoacidosis without coma (5) Nausea & vomiting Problems reviewed: Yes Code(s): R11.2 - NAUSEA WITH VOMITING, UNSPECIFIED Qualifiers: Vomiting type: cyclical vomiting Vomiting Intractability: intractable Qualified Code(s): G43.A1 - Cyclical vomiting, intractable (6) Cerebrovascular accident (CVA) Problems reviewed: Yes Code(s): I63.9 - CEREBRAL INFARCTION, UNSPECIFIED Qualifiers: CVA mechanism: unspecified Qualified Code(s): I63.9 - Cerebral infarction, unspecified
[2019-03-26] MEDS ORDERED: ENOXAPARIN NA (PORCINE) 80 MG/0.8 ML DISP.SYRIN SQ SCH (13:23)
--- NOTE | 2019-03-26 13:36 | PN ---
Progress Note, Physician - Current Medication List Current Medications: Active Medications Acetaminophen (Ofirmev Injection -) 1,000 mg IVPB Q6H PRN PRN Reason: PAIN OR FEVER Last Admin: 03/26/19 11:23 Dose: 1,000 mg Amino Acids (Prosource No Carb Liquid Pkt) 30 ml PO TIDCM [facility] Last Admin: 03/26/19 11:23 Dose: 30 ml Enoxaparin Sodium (Lovenox -) 110 mg SQ DAILY [facility] Hydromorphone HCl (Dilaudid Vial -) 1 mg IVPB Q4H PRN PRN Reason: PAIN LEVEL 1-5 Linezolid (Zyvox 600 Mg Premix Bag (Restricted To Id) -) 600 mg in 300 mls @ 300 mls/hr IVPB Q12H [facility]; Protocol Last Admin: 03/26/19 11:20 Dose: 300 mls/hr Fentanyl 500 mcg/ Dextrose 100 mls @ 10 mls/hr IVPB TITR [facility]; Protocol Last Admin: 03/26/19 11:53 Dose: Not Given Meropenem 1 gm/ Dextrose 100 mls @ 200 mls/hr IVPB Q8H-IV [facility] Last Admin: 03/26/19 09:45 Dose: 200 mls/hr Propofol (Diprivan -) 1,000,000 mcg in 100 mls @ 4.041 mls/hr IVPB TITR [facility]; Protocol Last Titration: 03/26/19 09:00 Dose: 0 mcg/kg/min, 0 mls/hr Dexmedetomidine HCl 400 mcg/ (Sodium Chloride) 100 mls @ 3.36 mls/hr IVPB TITR [facility] Last Admin: 03/26/19 08:00 Dose: 0.77 mcg/kg/hr, 12.96 mls/hr Insulin Aspart (Novolog Vial Sliding Scale -) 1 vial SQ Q4H [facility]; Protocol Last Admin: 03/26/19 11:00 Dose: 10 units Ondansetron HCl (Zofran Injection) 4 mg IVPUSH Q6H PRN PRN Reason: NAUSEA AND/OR VOMITING Last Admin: 03/14/19 05:07 Dose: 4 mg Pantoprazole Sodium (Protonix Iv) 40 mg IVPUSH DAILY [facility] Last Admin: 03/26/19 09:45 Dose: 40 mg Vancomycin HCl (Vancomycin Oral Solution) 125 mg PO Q6HPO [facility] Last Admin: 03/26/19 11:21 Dose: 125 mg - Objective Vital Signs: Vital Signs Temperature 100 F H 03/26/19 11:00 Pulse Rate 108 H 03/26/19 11:00 Respiratory Rate 29 H 03/26/19 12:10 Blood Pressure 100/65 03/26/19 11:00 O2 Sat by Pulse Oximetry (%) 100 03/26/19 10:00 Labs: CBC, BMP 03/26/19 06:00 03/26/19 06:00 INR, PTT INR 0.95 (0.83-1.09) 03/26/19 06:00 Fibrinogen 359.0 mg/dL (238-498) 03/19/19 23:15
--- NOTE | 2019-03-26 13:52 | PN ---
Physical Exam: SUBJECTIVE: Patient seen and examined in the ICU. Remains intubated, sedated on propofol and fentanyl. Spoke about on rounds to wean off sedation. Post rounds pt doing well off sedation. Tachypneic but improving and dyssynchronous with vent but better than yesterday. Remains off pressors. OBJECTIVE: Vital Signs Period Temp Pulse Resp BP Sys/Rapp Pulse Ox Last 24 Hr 98.8 F-101.5 F 85-116 17-32 89-134/58-80 100-100 GENERAL: The patient is intubated in no acute distress. NECK: ETT in place, supple. LUNGS: Breath sounds equal, clear to auscultation bilaterally, no wheezes, no crackles, no accessory muscle use. HEART: Regular rate and rhythm, S1, S2 without murmur, rub or gallop. ABDOMEN: Soft, changed dressing by surgery, no sign of bleeding from stitches. EXTREMITIES: anasarca SKIN: Warm, dry, no rashes or lesions noted Laboratory Results - last 24 hr 03/25/19 03/25/19 03/25/19 12:55 14:23 16:10 WBC RBC Hgb Hct MCV MCH MCHC RDW Plt Count MPV Absolute Neuts (auto) Neutrophils % Lymphocytes % Monocytes % Eosinophils % Basophils % Nucleated RBC % PT with INR INR PTT (Actin FS) Sodium 137 Potassium 3.7 Chloride 101 Carbon Dioxide 27 Anion Gap 9 BUN 19.9 H Creatinine 0.6 Est GFR (CKD-EPI)AfAm 124.05 Est GFR (CKD-EPI)NonAf 107.03 POC Glucometer 186 191 Random Glucose 312 H Lactic Acid Calcium 7.3 L Total Bilirubin 0.3 AST 18 ALT 12 L Alkaline Phosphatase 216 H Total Protein 5.2 L Albumin 1.4 L Blood Type Antibody Screen Antibody Identification Antigen Identification Crossmatch 03/25/19 03/26/19 03/26/19 20:48 01:48 05:06 WBC RBC Hgb Hct MCV MCH MCHC RDW Plt Count MPV Absolute Neuts (auto) Neutrophils % Lymphocytes % Monocytes % Eosinophils % Basophils % Nucleated RBC % PT with INR INR PTT (Actin FS) Sodium Potassium Chloride Carbon Dioxide Anion Gap BUN Creatinine Est GFR (CKD-EPI)AfAm Est GFR (CKD-EPI)NonAf POC Glucometer 276 178 153 Random Glucose Lactic Acid Calcium Total Bilirubin AST ALT Alkaline Phosphatase Total Protein Albumin Blood Type Antibody Screen Antibody Identification Antigen Identification Crossmatch 03/26/19 03/26/19 03/26/19 06:00 06:00 06:00 WBC 8.5 RBC 2.92 L Hgb 7.6 L Hct 23.5 L MCV 80.5 MCH 26.1 MCHC 32.4 RDW 23.5 H Plt Count 231 D MPV 8.1 Absolute Neuts (auto) 5.4 Neutrophils % 63.6 Lymphocytes % 24.4 Monocytes % 7.8 Eosinophils % 3.2 Basophils % 1.0 Nucleated RBC % 0 PT with INR 11.20 INR 0.95 PTT (Actin FS) 29.7 Sodium 139 Potassium 3.8 Chloride 102 Carbon Dioxide 32 Anion Gap 5 L BUN 14.5 Creatinine 0.3 L Est GFR (CKD-EPI)AfAm 155.82 Est GFR (CKD-EPI)NonAf 134.44 POC Glucometer Random Glucose 151 H Lactic Acid Calcium 7.1 L Total Bilirubin 0.2 AST 15 ALT 9 L Alkaline Phosphatase 155 H Total Protein 4.3 L Albumin 1.2 L Blood Type Antibody Screen Antibody Identification Antigen Identification Crossmatch 03/26/19 03/26/19 03/26/19 06:00 08:30 10:53 WBC RBC Hgb Hct MCV MCH MCHC RDW Plt Count MPV Absolute Neuts (auto) Neutrophils % Lymphocytes % Monocytes % Eosinophils % Basophils % Nucleated RBC % PT with INR INR PTT (Actin FS) Sodium Potassium Chloride Carbon Dioxide Anion Gap BUN Creatinine Est GFR (CKD-EPI)AfAm Est GFR (CKD-EPI)NonAf POC Glucometer 356 Random Glucose Lactic Acid 2.4 H* Calcium Total Bilirubin AST ALT Alkaline Phosphatase Total Protein Albumin Blood Type A NEGATIVE Antibody Screen Positive Antibody Identification Anti-d Antigen Identification No Result Required. Crossmatch See Detail Active Medications Generic Name Dose Route Start Last Admin Trade Name Freq PRN Reason Stop Dose Admin Acetaminophen 1,000 mg 03/22/19 16:17 03/26/19 11:23 Ofirmev Injection - IVPB 1,000 mg Q6H PRN Administration PAIN OR FEVER Amino Acids 30 ml 03/19/19 08:00 03/26/19 11:23 Prosource No Carb Liquid Pkt PO 30 ml TIDCM [facility] Administration Enoxaparin Sodium 110 mg 03/26/19 13:30 Lovenox - SQ DAILY [facility] Hydromorphone HCl 1 mg 03/26/19 04:22 Dilaudid Vial - IVPB Q4H PRN PAIN LEVEL 1-5 Linezolid 600 mg in 300 mls @ 300 mls/hr 03/18/19 11:45 03/26/19 11:20 Zyvox 600 Mg Premix Bag (Restricted To Id) - IVPB 300 mls/hr Q12H [facility] Administration Protocol Fentanyl 500 mcg/ Dextrose 100 mls @ 10 mls/hr 03/20/19 09:30 03/26/19 11:53 IVPB Not Given TITR [facility] Protocol 50 MCG/HR Meropenem 1 gm/ Dextrose 100 mls @ 200 mls/hr 03/21/19 18:00 03/26/19 09:45 IVPB 200 mls/hr Q8H-IV [facility] Administration Propofol 1,000,000 mcg in 100 mls @ 4.041 mls/hr 03/24/19 00:15 03/26/19 09: 00 Diprivan - IVPB 0 mcg/kg/min TITR [facility] 0 mls/hr Titration Protocol 10 MCG/KG/MIN Dexmedetomidine HCl 400 mcg/ 100 mls @ 3.36 mls/hr 03/24/19 12:45 03/26/19 08 :00 Sodium Chloride IVPB 0.77 mcg/kg/hr TITR [facility] 12.96 mls/hr Administration 0.2 MCG/KG/HR Insulin Aspart 1 vial 03/26/19 02:15 03/26/19 11:00 Novolog Vial Sliding Scale - SQ 10 units Q4H [facility] Administration Protocol Ondansetron HCl 4 mg 03/11/19 20:31 03/14/19 05:07 Zofran Injection IVPUSH 4 mg Q6H PRN Administration NAUSEA AND/OR VOMITING Pantoprazole Sodium 40 mg 03/20/19 10:00 03/26/19 09:45 Protonix Iv IVPUSH 40 mg DAILY [facility] Administration Vancomycin HCl 125 mg 03/15/19 18:00 03/26/19 11:21 Vancomycin Oral Solution PO 125 mg Q6HPO [facility] Administration ASSESSMENT/PLAN: This is a 48F PMH IDDM, PE on xarelto, frequent DKA, HTN, HLD, CVA w/ left sided weakness, recent hospitalization at [facility] September 2018 admitted to ICU for SBO. Developed pneumoperitoneum s/p ex-lap. POD #12 Neuro - sedated - intubated - able to wean off sedation, pt toleration improved may start spontaneous breathing trial. - Tylenol for pain/fever ctrl, spiking low grade fever 100 temp - dilaudid 1 mg q4h PRN for pain control CV - hx of transient a-fib with RVR - sinus tachy 105 - No longer hypotensive - Maintain MAP >65 - continue pressors - if persistent a-fib start amiodarone Respiratory - Patient remains intubated tried to wean sedation but unable to bc of tachycardia and tachypnea. - Lasix IV 40 one time - monitor resp status - sedation vacation attempted, patient began having increased work of breathing and was placed back on sedation GI - Crohn's flair likely, pneumoperitoneum s/p ex-lap - GI recs appreciated continuing w/ C diff management - confirmed with surgery regarding CT abdomen and pelvis with contrast via NG tube and IV contrast to assess for a fluid collection/other cause of infection. - VAC dressing change due Friday, 03/28 per surgery. - Antibiotics per ID - Transfuse 1 prbc will rpt cbc after this. ID-> C diff - c/w vanco, sylvester - Cx + LF neg bacilli - UCx + VRE - CDiff Ag and toxin pos - WBC 8.5 - one dose caspofungin given, vanco, meropenem, zyvox. Endocrine - d/c levemir - novolog SS - d/c tube feeds due to emesis. - pt been hyperglycemic today, doing better FEN - Lytes in AM, replete PRN - potassium repleted (goal of 4) - Monitor I/Os - Monitor UrO, Cr PPx: Lovenox 110, SCDs Dispo: continue ICU care Visit type - Emergency Visit Emergency Visit: Yes ED Registration Date: 03/09/19 Care time: The patient presented to the Emergency Department on the above date and was hospitalized for further evaluation of their emergent condition. - New Patient This patient is new to me today: No - Critical Care Critical Care patient: Yes Total Critical Care Time (in minutes): 35 Critical Care Statement: The care of this patient involved high complexity decision making to prevent further life threatening deterioration of the patient 's condition and/or to evaluate & treat vital organ system(s) failure or risk of failure. - Discharge Referral Referred to [facility] No ATTENDING PHYSICIAN STATEMENT I saw and evaluated the patient. I reviewed the resident's note and discussed the case with the resident. I agree with the resident's findings and plan as documented. SUBJECTIVE: OBJECTIVE: ASSESSMENT AND PLAN:
[2019-03-26] MEDS: ENOXAPARIN NA (PORCINE) 60 MG/0.6 ML DISP.SYRIN SQ SCH (14:00)
[2019-03-26] MEDS ORDERED: PT OWN MED DRAWER 7, Y5N ONE (16:31)
[2019-03-26] MEDS ORDERED: PROPOFOL 1,000,000 MCG/100 ML VIAL ONE (18:01)
[2019-03-26 21:14] LABS: BASO % 1.8 % (0-2.0); EOS % 2.6 % (0-4.5); HEMATOCRIT 28.1 % (32.4-45.2); HEMOGLOBIN 9.2 GM/dL (10.7-15.3); LYMPH % 20.6 % (8-40); MCH 26.7 pg (25.7-33.7); MCHC 32.6 g/dl (32.0-36.0); MEAN CELL VOLUME 81.7 fl (80-96); MEAN PLT VOLUME 8.1 fl (7.5-11.1); MONO % 9.8 % (3.8-10.2); NEUT % 65.2 % (42.8-82.8); PLATELET COUNT 262 K/MM3 (134-434); RBC 3.44 M/mm3 (3.60-5.2); RDW 22.3 % (11.6-15.6); WHITE BLOOD COUNT 8.7 K/mm3 (4.0-10.0)
[2019-03-27] MEDS: DEXMEDETOMIDINE HCL 400 MCG in SODIUM CHLORIDE 96 ML IVPB SCH ×2 (01:24→23:05)
[2019-03-27] MEDS: MEROPENEM 1 GM in DEXTROSE 5%-WATER 100 ML IVPB SCH ×3 (02:14→18:11)
[2019-03-27] MEDS: INSULIN SLIDING SCALE (NOVOLOG) 1 VIAL SQ SCH ×6 (02:20→21:24)
[2019-03-27] MEDS: VANCOMYCIN 250 MG/5 ML ORAL SOLUTION PO SCH ×3 (05:34→18:11)
[2019-03-27 07:07] LABS: BASO % 0.7 % (0-2.0); EOS % 3.9 % (0-4.5); HEMATOCRIT 26.3 % (32.4-45.2); HEMOGLOBIN 8.8 GM/dL (10.7-15.3); LYMPH % 22.8 % (8-40); MCH 27.2 pg (25.7-33.7); MCHC 33.3 g/dl (32.0-36.0); MEAN CELL VOLUME 81.6 fl (80-96); MEAN PLT VOLUME 7.8 fl (7.5-11.1); NEUT % 60.6 % (42.8-82.8); PLATELET COUNT 269 K/MM3 (134-434); RBC 3.22 M/mm3 (3.60-5.2); RDW 22.2 % (11.6-15.6); WHITE BLOOD COUNT 7.1 K/mm3 (4.0-10.0)
[2019-03-27 07:47] LABS: ALBUMIN 1.2 g/dl (3.4-5.0); BILIRUBIN,TOTAL 0.2 mg/dL (0.2-1); BLOOD UREA NITROGEN 16.5 mg/dL (7-18); CALCIUM 7.3 mg/dL (8.5-10.1); CREATININE 0.3 mg/dL (0.55-1.3); MAGNESIUM 1.8 mg/dL (1.8-2.4); PHOSPHOROUS 1.2 mg/dL (2.5-4.9); POTASSIUM 3.8 mmol/L (3.5-5.1); TOT PROT 4.5 g/dl (6.4-8.2)
--- NOTE | 2019-03-27 07:47 | PN ---
Physical Exam: Chief Complaint: orally intubated and sedated History of Present Illness: 48 year-old female with a PMH significant for Type I IDDM, frequent admissions for DKA, HTN, HLD, CVA with left-sided weakness. Recent hospitalization at [facility] September 2018 for SBO. She is s/p post exploratory lap and resection of illial perforation 03/12. Post op course treated for bacteremia and C-Diff. AC was restarted post op (lovenox 110). She became pulseless on 03/19/19 at 0600 and CPR was initiated. She was given epi and intubated to protect airway. tele showed rapid afib. She had a troponin elevation and her ekg w/o st elevations. she was evaluated by cardiology and remains intubated in the ICU. She continues to have agonal breathing. SUBJECTIVE: Patient seen and examined. Pt sedated and intubated. Spent about 25 minutes discussing with the pt's mother and father about her care. They are unsure and currently not on the same page regarding a DNR. Palliative is on board has spoken to them, but the parents still state they are confused and unsure of what is going on. Her father states he heard his daughter reference in the past having to be left alive and not being able to take care of herself and stated she would not want to live that way. Her mother is unable to make the decision. They want to make the decision with the fiance. OBJECTIVE: Constitutional: Yes: Other (sedated) Eyes: Yes: Conjunctiva Clear Cardiovascular: Yes: Tachycardia Respiratory: Yes: Mechanically Ventilated, Scattered Rhonchi Gastrointestinal: Yes: Normal Bowel Sounds, Soft, Abdomen, Obese Genitourinary: Yes: Lott Present Integumentary: Yes: WNL Wound/Incision: Yes: Other (wound vac) Neurological: Yes: Other (on sedation) Vital Signs Period Temp Pulse Resp BP Sys/Rapp Pulse Ox Last 24 Hr 98.5 F-100.4 F 77-118 19-32 93-143/60-84 97-100 Laboratory Results - last 24 hr 03/26/19 03/26/19 03/26/19 06:00 06:00 08:30 WBC RBC Hgb Hct MCV MCH MCHC RDW Plt Count MPV Absolute Neuts (auto) Neutrophils % Lymphocytes % Monocytes % Eosinophils % Basophils % Nucleated RBC % Sodium 139 Potassium 3.8 Chloride 102 Carbon Dioxide 32 Anion Gap 5 L BUN 14.5 Creatinine 0.3 L Est GFR (CKD-EPI)AfAm 155.82 Est GFR (CKD-EPI)NonAf 134.44 POC Glucometer Random Glucose 151 H Lactic Acid 2.4 H* Calcium 7.1 L Phosphorus Magnesium Total Bilirubin 0.2 AST 15 ALT 9 L Alkaline Phosphatase 155 H Total Protein 4.3 L Albumin 1.2 L Blood Type A NEGATIVE Antibody Screen Positive Antibody Identification Anti-d Antigen Identification No Result Required. Crossmatch See Detail 03/26/19 03/26/19 03/26/19 10:53 13:52 18:35 WBC RBC Hgb Hct MCV MCH MCHC RDW Plt Count MPV Absolute Neuts (auto) Neutrophils % Lymphocytes % Monocytes % Eosinophils % Basophils % Nucleated RBC % Sodium Potassium Chloride Carbon Dioxide Anion Gap BUN Creatinine Est GFR (CKD-EPI)AfAm Est GFR (CKD-EPI)NonAf POC Glucometer 356 347 239 Random Glucose Lactic Acid Calcium Phosphorus Magnesium Total Bilirubin AST ALT Alkaline Phosphatase Total Protein Albumin Blood Type Antibody Screen Antibody Identification Antigen Identification Crossmatch 03/26/19 03/26/19 03/27/19 20:40 22:42 02:18 WBC 8.7 RBC 3.44 L Hgb 9.2 L Hct 28.1 L D MCV 81.7 MCH 26.7 MCHC 32.6 RDW 22.3 H Plt Count 262 MPV 8.1 Absolute Neuts (auto) 5.7 Neutrophils % 65.2 Lymphocytes % 20.6 Monocytes % 9.8 Eosinophils % 2.6 Basophils % 1.8 Nucleated RBC % 0 Sodium Potassium Chloride Carbon Dioxide Anion Gap BUN Creatinine Est GFR (CKD-EPI)AfAm Est GFR (CKD-EPI)NonAf POC Glucometer 122 173 Random Glucose Lactic Acid Calcium Phosphorus Magnesium Total Bilirubin AST ALT Alkaline Phosphatase Total Protein Albumin Blood Type Antibody Screen Antibody Identification Antigen Identification Crossmatch 03/27/19 03/27/19 03/27/19 06:00 06:00 06:43 WBC 7.1 RBC 3.22 L Hgb 8.8 L Hct 26.3 L MCV 81.6 MCH 27.2 MCHC 33.3 RDW 22.2 H Plt Count 269 MPV 7.8 Absolute Neuts (auto) 4.3 Neutrophils % 60.6 Lymphocytes % 22.8 Monocytes % 12.0 H Eosinophils % 3.9 Basophils % 0.7 Nucleated RBC % 0 Sodium 139 Potassium 3.8 Chloride 102 Carbon Dioxide 31 Anion Gap 5 L BUN 16.5 Creatinine 0.3 L Est GFR (CKD-EPI)AfAm 155.82 Est GFR (CKD-EPI)NonAf 134.44 POC Glucometer 311 Random Glucose 260 H Lactic Acid Calcium 7.3 L Phosphorus 1.2 L Magnesium 1.8 Total Bilirubin 0.2 AST 19 ALT 10 L Alkaline Phosphatase 157 H Total Protein 4.5 L Albumin 1.2 L Blood Type Antibody Screen Antibody Identification Antigen Identification Crossmatch Active Medications Generic Name Dose Route Start Last Admin Trade Name Freq PRN Reason Stop Dose Admin Acetaminophen 1,000 mg 03/22/19 16:17 03/26/19 11:23 Ofirmev Injection - IVPB 1,000 mg Q6H PRN Administration PAIN OR FEVER Amino Acids 30 ml 03/26/19 15:30 03/26/19 16:41 Prosource No Carb Liquid Pkt PO 30 ml DAILY [facility] Administration Enoxaparin Sodium 110 mg 03/26/19 13:30 03/26/19 14:00 Lovenox - SQ 110 mg DAILY [facility] Administration Hydromorphone HCl 1 mg 03/26/19 04:22 Dilaudid Vial - IVPB Q4H PRN PAIN LEVEL 1-5 Linezolid 600 mg in 300 mls @ 300 mls/hr 03/18/19 11:45 03/26/19 22:45 Zyvox 600 Mg Premix Bag (Restricted To Id) - IVPB 300 mls/hr Q12H [facility] Administration Protocol Fentanyl 500 mcg/ Dextrose 100 mls @ 10 mls/hr 03/20/19 09:30 03/26/19 21:47 IVPB 50 mcg/hr TITR [facility] 10 mls/hr Administration Protocol 50 MCG/HR Meropenem 1 gm/ Dextrose 100 mls @ 200 mls/hr 03/21/19 18:00 03/27/19 02:14 IVPB 200 mls/hr Q8H-IV [facility] Administration Propofol 1,000,000 mcg in 100 mls @ 4.041 mls/hr 03/24/19 00:15 03/27/19 03: 29 Diprivan - IVPB 15 mcg/kg/min TITR [facility] 6.062 mls/hr Titration Protocol 10 MCG/KG/MIN Dexmedetomidine HCl 400 mcg/ 100 mls @ 3.36 mls/hr 03/24/19 12:45 03/27/19 01 :24 Sodium Chloride IVPB 0.77 mcg/kg/hr TITR [facility] 12.96 mls/hr Administration 0.2 MCG/KG/HR Insulin Aspart 1 vial 03/26/19 02:15 03/27/19 06:51 Novolog Vial Sliding Scale - SQ 8 units Q4H [facility] Administration Protocol Ondansetron HCl 4 mg 03/11/19 20:31 03/14/19 05:07 Zofran Injection IVPUSH 4 mg Q6H PRN Administration NAUSEA AND/OR VOMITING Pantoprazole Sodium 40 mg 03/20/19 10:00 03/26/19 09:45 Protonix Iv IVPUSH 40 mg DAILY [facility] Administration Vancomycin HCl 125 mg 03/15/19 18:00 03/27/19 05:34 Vancomycin Oral Solution PO 125 mg Q6HPO [facility] Administration ASSESSMENT/PLAN: Problem List - Problems (1) HLD (hyperlipidemia) Assessment/Plan: NPO Code(s): E78.5 - HYPERLIPIDEMIA, UNSPECIFIED (2) Left-sided weakness Assessment/Plan: movement noted to right UE PT when no longer requiring ICU monitoring Code(s): R53.1 - WEAKNESS (3) History of open heart surgery Code(s): Z98.890 - OTHER SPECIFIED POSTPROCEDURAL STATES (4) Acute Crohn's disease Assessment/Plan: history of chrons followed at [facility], was suppose to start infliximab but never followed through off steroids Code(s): K50.90 - CROHN'S DISEASE, UNSPECIFIED, WITHOUT COMPLICATIONS (5) Gastroparesis Code(s): K31.84 - GASTROPARESIS (6) Abdominal pain Assessment/Plan: s/p bowel resection with viscous repair general surgery following wound dihensence noted at distal portion, vac in place dressing changes as per surgery Code(s): R10.9 - UNSPECIFIED ABDOMINAL PAIN Qualifiers: Abdominal location: generalized Qualified Code(s): R10.84 - Generalized abdominal pain (7) Small bowel obstruction Assessment/Plan: s/p perforated viscus repair dressing changes as per surgical team Code(s): K56.609 - UNSP INTESTNL OBST, UNSP TO PARTIAL VERSUS COMPLETE OBST (8) Cerebrovascular accident (CVA) Assessment/Plan: left sided weakness PT to follow when no longer requiring ICU care Code(s): I63.9 - CEREBRAL INFARCTION, UNSPECIFIED Qualifiers: CVA mechanism: unspecified Qualified Code(s): I63.9 - Cerebral infarction, unspecified (9) Chronic pain Assessment/Plan: sedated with precedex/ fentanyl/profolol Code(s): G89.29 - OTHER CHRONIC PAIN Qualifiers: Chronic pain type: chronic pain syndrome Qualified Code(s): G89.4 - Chronic pain syndrome (10) Prophylactic measure Assessment/Plan: FEN Jevity monitor electrolytes IVF DVT lovenox sq Dispo requires ICU care full code palliative care following-HCP being sent from [facility] prognosis critical discharge planning Code(s): Z29.9 - ENCOUNTER FOR PROPHYLACTIC MEASURES, UNSPECIFIED (11) Diabetes Assessment/Plan: BGM q4h careful glycemic control with multiple episodes of DKA c/w D10 levemir stopped Code(s): E11.9 - TYPE 2 DIABETES MELLITUS WITHOUT COMPLICATIONS (12) Perforated abdominal viscus Assessment/Plan: s/p Ex-lap/RAYSHAWN/partial SB and omental resection with anastomosis/washou appreciate surgical and ID consultation c/w abx Code(s): HPM9490 - (13) Hypoxia Assessment/Plan: orally intuabted on mechanical ventilation attempted weaning trial this AM but was unsuccessful appreciate ICU level of care Code(s): R09.02 - HYPOXEMIA (14) C. difficile diarrhea Assessment/Plan: Diarrhea has improved, elevated lactate and mild leucocytosis noted. -Continue vancomycin PO -c/w rectal tube Code(s): A04.72 - ENTEROCOLITIS D/T CLOSTRIDIUM DIFFICILE, NOT SPCF RECUR (15) ESBL (extended spectrum beta-lactamase) producing bacteria infection Assessment/Plan: ESBL in wound appreciate ID consultation -Dr. Pimentel c/w linezolid, vanco, sylvester - Cx + LF neg bacilli - UCx + VRE - CDiff Ag and toxin pos - WBC down to 8.5 Code(s): A49.9 - BACTERIAL INFECTION, UNSPECIFIED; Z16.12 - EXTENDED SPECTRUM BETA LACTAMASE (ESBL) RESISTANCE (16) Clostridium difficile diarrhea Code(s): A04.72 - ENTEROCOLITIS D/T CLOSTRIDIUM DIFFICILE, NOT SPCF RECUR (17) Hypotension Assessment/Plan: norepi gtt titrate to off maintaining MAP>60 Code(s): I95.9 - HYPOTENSION, UNSPECIFIED (18) Admitted to intensive care unit Assessment/Plan: appreciate ICU level of care Code(s): Z78.9 - OTHER SPECIFIED HEALTH STATUS Visit type - Emergency Visit Emergency Visit: Yes ED Registration Date: 03/09/19 Care time: The patient presented to the Emergency Department on the above date and was hospitalized for further evaluation of their emergent condition. - New Patient This patient is new to me today: Yes Date on this admission: 03/27/19 - Critical Care Critical Care patient: Yes Total Critical Care Time (in minutes): 65 Critical Care Statement: The care of this patient involved high complexity decision making to prevent further life threatening deterioration of the patient 's condition and/or to evaluate & treat vital organ system(s) failure or risk of failure. - Discharge Referral Referred to [facility] No
--- NOTE | 2019-03-27 08:16 | PN.GI ---
GI Progress Note Subjective: intubated off pressors ; as per RN small amount of stool this am . - Objective Vital Signs: Vital Signs Temperature 99.2 F 03/27/19 07:00 Pulse Rate 97 H 03/27/19 07:00 Respiratory Rate 29 H 03/27/19 08:11 Blood Pressure 107/66 03/27/19 07:00 O2 Sat by Pulse Oximetry (%) 100 03/27/19 04:12 Constitutional: Well Nourished, No Distress, Calm, Other (intubated) Eyes: Yes: WNL HENT: Yes: WNL Neck: Yes: WNL Cardiovascular: Yes: WNL Respiratory: Yes: WNL, Regular, CTA Bilaterally Gastrointestinal Inspection: Yes: WNL ...Auscultate: Yes: Normoactive Bowel Sounds Edema: No Labs: CBC, BMP 03/27/19 06:00 03/27/19 06:00 INR, PTT INR 0.95 (0.83-1.09) 03/26/19 06:00 Fibrinogen 359.0 mg/dL (238-498) 03/19/19 23:15 Problem List - Problems (1) C. difficile diarrhea Assessment/Plan: c/w po vanco and tube feeds micu care Code(s): A04.72 - ENTEROCOLITIS D/T CLOSTRIDIUM DIFFICILE, NOT SPCF RECUR
[2019-03-27] MEDS ORDERED: SODIUM PHOSPHATE - 0 MM in DEXTROSE 5%-WATER - 250 ML IVPB ONE (08:58)
[2019-03-27] MEDS ORDERED: MEROPENEM 1 GM VIAL (RESTRICTED TO ID) IVPB ONE ×2 (10:16→17:35)
[2019-03-27] MEDS ORDERED: DEXTROSE 5%-WATER 100 ML IVPB ONE ×2 (10:17→17:35)
--- NOTE | 2019-03-27 10:19 | PN ---
Teaching Attending Note Name of Resident: Howie Chavis ATTENDING PHYSICIAN STATEMENT I saw and evaluated the patient. I reviewed the resident's note and discussed the case with the resident. I agree with the resident's findings and plan as documented. SUBJECTIVE: Pt seen and examined in the ICU. Remains intubated, sedated, tachypneic on volume assist control. OBJECTIVE: Vital Signs Period Temp Pulse Resp BP Sys/Rapp Pulse Ox Last 24 Hr 98.5 F-100.4 F 77-118 19-32 93-143/60-84 100-100 Intake & Output 03/24/19 03/25/19 03/26/19 03/27/19 23:59 23:59 23:59 23:59 Intake Total 2787 4364.2 3759 961 Output Total 1400 1550 2525 650 Balance 1387 2814.2 1234 311 Weight 65.402 kg 66.451 kg 67.404 kg 68.674 kg Gen: intubated, sedated, tachypneic Heart: RRR Lung: scattered rhonchi Abd: soft, wound vac in place Ext: + edema CBC, BMP 03/27/19 06:00 03/27/19 06:00 Active Medications Acetaminophen (Ofirmev Injection -) 1,000 mg IVPB Q6H PRN PRN Reason: PAIN OR FEVER Last Admin: 03/26/19 11:23 Dose: 1,000 mg Amino Acids (Prosource No Carb Liquid Pkt) 30 ml PO DAILY [facility] Last Admin: 03/26/19 16:41 Dose: 30 ml Enoxaparin Sodium (Lovenox -) 110 mg SQ DAILY [facility] Last Admin: 03/26/19 14:00 Dose: 110 mg Hydromorphone HCl (Dilaudid Vial -) 1 mg IVPB Q4H PRN PRN Reason: PAIN LEVEL 1-5 Linezolid (Zyvox 600 Mg Premix Bag (Restricted To Id) -) 600 mg in 300 mls @ 300 mls/hr IVPB Q12H [facility]; Protocol Last Admin: 03/26/19 22:45 Dose: 300 mls/hr Fentanyl 500 mcg/ Dextrose 100 mls @ 10 mls/hr IVPB TITR [facility]; Protocol Last Admin: 03/26/19 21:47 Dose: 50 mcg/hr, 10 mls/hr Meropenem 1 gm/ Dextrose 100 mls @ 200 mls/hr IVPB Q8H-IV [facility] Last Admin: 03/27/19 02:14 Dose: 200 mls/hr Propofol (Diprivan -) 1,000,000 mcg in 100 mls @ 4.041 mls/hr IVPB TITR [facility]; Protocol Last Titration: 03/27/19 03:29 Dose: 15 mcg/kg/min, 6.062 mls/hr Dexmedetomidine HCl 400 mcg/ (Sodium Chloride) 100 mls @ 3.36 mls/hr IVPB TITR [facility] Last Admin: 03/27/19 01:24 Dose: 0.77 mcg/kg/hr, 12.96 mls/hr Sodium Phosphate / Dextrose 250 mls @ 62.5 mls/hr IVPB ONCE ONE Stop: 03/27/19 12:57 Insulin Aspart (Novolog Vial Sliding Scale -) 1 vial SQ Q4H [facility]; Protocol Last Admin: 03/27/19 06:51 Dose: 8 units Ondansetron HCl (Zofran Injection) 4 mg IVPUSH Q6H PRN PRN Reason: NAUSEA AND/OR VOMITING Last Admin: 03/14/19 05:07 Dose: 4 mg Pantoprazole Sodium (Protonix Iv) 40 mg IVPUSH DAILY [facility] Last Admin: 03/26/19 09:45 Dose: 40 mg Vancomycin HCl (Vancomycin Oral Solution) 125 mg PO Q6HPO [facility] Last Admin: 03/27/19 05:34 Dose: 125 mg ASSESSMENT AND PLAN: s/p Cardiopulmonary Arrest r/o Anoxic Brain Injury Acute Hypoxic Respiratory Failure Perforated Small Bowel s/p ex-lap/RAYSHAWN/segmental SB resection Crohn's Disease Peritonitis +C diff Colitis Septic Shock Lactic Acidosis Volume Overload h/o PE HTN DM Hyperlipidemia Anemia Thrombocytopenia h/o CVA - continue antibiotics per ID - IV lasix BID today - monitor urine output, creatinine - off pressors, maintain MAP > 65 - continue anticoagulation - sedate for vent synchrony - daily sedation vacations to assess mental status - spontaneous breathing trials as tolerated when mental status improved - enteral feeds - DVT/GI prophylaxis - continue ICU monitoring critical care time spent in reviewing chart, evaluating patient and formulating plan 35 min
[2019-03-27] MEDS ORDERED: fentaNYL CITRATE 250 MCG/5 ML VIAL ONE ×2 (10:36→18:41)
[2019-03-27] MEDS: FENTANYL INJECTION 500 MCG in DEXTROSE 5%-WATER - 90 ML IVPB SCH (10:46)
[2019-03-27] MEDS: AMINO ACIDS/PROTEIN HYDROLYS 30 ML LIQUID.PKT PO SCH (10:46)
[2019-03-27] MEDS: PANTOPRAZOLE SODIUM 40 MG VIAL IVPUSH SCH (10:46)
[2019-03-27] MEDS: ENOXAPARIN NA (PORCINE) 60 MG/0.6 ML DISP.SYRIN SQ SCH (10:46)
[2019-03-27] MEDS: LINEZOLID 600 MG PREMIX BAG 600 MG/300 ML BAG IVPB SCH (11:14)
[2019-03-27 11:39] LABS: ANISOCYTOSIS 2+; TARGET CELLS 1+; TEAR DROP CELLS 1+
[2019-03-27 11:40] LABS: PLATELET ESTIMATE ADEQUATE
[2019-03-27] MEDS ORDERED: SODIUM PHOSPHATE - 20 MM in DEXTROSE 5%-WATER - 250 ML IVPB ONE (12:00)
--- NOTE | 2019-03-27 12:28 | PN ---
Physical Exam: SUBJECTIVE: Patient seen and examined in ICU. Intubated and sedated on fent and prop. Placed back on precedex. OBJECTIVE: Vital Signs Period Temp Pulse Resp BP Sys/Rapp Pulse Ox Last 24 Hr 98.5 F-100.4 F 77-118 19-31 93-143/60-84 100-100 GENERAL: The patient is intubated and sedated. LUNGS: Breath sounds roncherous HEART: Regular rate and rhythm, S1, S2 without murmur, rub or gallop. ABDOMEN: Soft, wound vac in place EXTREMITIES: anasarca. Laboratory Results - last 24 hr 03/26/19 03/26/19 03/26/19 08:30 13:52 18:35 WBC RBC Hgb Hct MCV MCH MCHC RDW Plt Count MPV Absolute Neuts (auto) Neutrophils % Lymphocytes % Monocytes % Eosinophils % Basophils % Nucleated RBC % Platelet Estimate Platelet Comment Poikilocytosis Anisocytosis Microcytosis Spherocytes Target Cells Tear Drop Cells Sodium Potassium Chloride Carbon Dioxide Anion Gap BUN Creatinine Est GFR (CKD-EPI)AfAm Est GFR (CKD-EPI)NonAf POC Glucometer 347 239 Random Glucose Calcium Phosphorus Magnesium Total Bilirubin AST ALT Alkaline Phosphatase Total Protein Albumin Blood Type A NEGATIVE Antibody Screen Positive Antibody Identification Anti-d Crossmatch See Detail 03/26/19 03/26/19 03/27/19 20:40 22:42 02:18 WBC 8.7 RBC 3.44 L Hgb 9.2 L Hct 28.1 L D MCV 81.7 MCH 26.7 MCHC 32.6 RDW 22.3 H Plt Count 262 MPV 8.1 Absolute Neuts (auto) 5.7 Neutrophils % 65.2 Lymphocytes % 20.6 Monocytes % 9.8 Eosinophils % 2.6 Basophils % 1.8 Nucleated RBC % 0 Platelet Estimate Platelet Comment Poikilocytosis Anisocytosis Microcytosis Spherocytes Target Cells Tear Drop Cells Sodium Potassium Chloride Carbon Dioxide Anion Gap BUN Creatinine Est GFR (CKD-EPI)AfAm Est GFR (CKD-EPI)NonAf POC Glucometer 122 173 Random Glucose Calcium Phosphorus Magnesium Total Bilirubin AST ALT Alkaline Phosphatase Total Protein Albumin Blood Type Antibody Screen Antibody Identification Crossmatch 03/27/19 03/27/19 03/27/19 06:00 06:00 06:43 WBC 7.1 RBC 3.22 L Hgb 8.8 L Hct 26.3 L MCV 81.6 MCH 27.2 MCHC 33.3 RDW 22.2 H Plt Count 269 MPV 7.8 Absolute Neuts (auto) 4.3 Neutrophils % 60.6 Lymphocytes % 22.8 Monocytes % 12.0 H Eosinophils % 3.9 Basophils % 0.7 Nucleated RBC % 0 Platelet Estimate Adequate Platelet Comment Giant platelets Poikilocytosis 1+ Anisocytosis 2+ Microcytosis 1+ Spherocytes 1+ Target Cells 1+ Tear Drop Cells 1+ Sodium 139 Potassium 3.8 Chloride 102 Carbon Dioxide 31 Anion Gap 5 L BUN 16.5 Creatinine 0.3 L Est GFR (CKD-EPI)AfAm 155.82 Est GFR (CKD-EPI)NonAf 134.44 POC Glucometer 311 Random Glucose 260 H Calcium 7.3 L Phosphorus 1.2 L Magnesium 1.8 Total Bilirubin 0.2 AST 19 ALT 10 L Alkaline Phosphatase 157 H Total Protein 4.5 L Albumin 1.2 L Blood Type Antibody Screen Antibody Identification Crossmatch 03/27/19 11:10 WBC RBC Hgb Hct MCV MCH MCHC RDW Plt Count MPV Absolute Neuts (auto) Neutrophils % Lymphocytes % Monocytes % Eosinophils % Basophils % Nucleated RBC % Platelet Estimate Platelet Comment Poikilocytosis Anisocytosis Microcytosis Spherocytes Target Cells Tear Drop Cells Sodium Potassium Chloride Carbon Dioxide Anion Gap BUN Creatinine Est GFR (CKD-EPI)AfAm Est GFR (CKD-EPI)NonAf POC Glucometer 254 Random Glucose Calcium Phosphorus Magnesium Total Bilirubin AST ALT Alkaline Phosphatase Total Protein Albumin Blood Type Antibody Screen Antibody Identification Crossmatch Active Medications Generic Name Dose Route Start Last Admin Trade Name Freq PRN Reason Stop Dose Admin Acetaminophen 1,000 mg 03/22/19 16:17 03/26/19 11:23 Ofirmev Injection - IVPB 1,000 mg Q6H PRN Administration PAIN OR FEVER Amino Acids 30 ml 03/26/19 15:30 03/27/19 10:46 Prosource No Carb Liquid Pkt PO 30 ml DAILY [facility] Administration Enoxaparin Sodium 110 mg 03/26/19 13:30 03/27/19 10:46 Lovenox - SQ 110 mg DAILY [facility] Administration Furosemide 40 mg 03/27/19 14:00 Lasix Injection - IVPUSH BID@0600,1400 [facility] Hydromorphone HCl 1 mg 03/26/19 04:22 Dilaudid Vial - IVPB Q4H PRN PAIN LEVEL 1-5 Linezolid 600 mg in 300 mls @ 300 mls/hr 03/18/19 11:45 03/27/19 11:14 Zyvox 600 Mg Premix Bag (Restricted To Id) - IVPB 300 mls/hr Q12H [facility] Administration Protocol Fentanyl 500 mcg/ Dextrose 100 mls @ 10 mls/hr 03/20/19 09:30 03/27/19 10:46 IVPB 75 mcg/hr TITR [facility] 15 mls/hr Administration Protocol 50 MCG/HR Meropenem 1 gm/ Dextrose 100 mls @ 200 mls/hr 03/21/19 18:00 03/27/19 10:46 IVPB 200 mls/hr Q8H-IV [facility] Administration Propofol 1,000,000 mcg in 100 mls @ 4.041 mls/hr 03/24/19 00:15 03/27/19 03: 29 Diprivan - IVPB 15 mcg/kg/min TITR [facility] 6.062 mls/hr Titration Protocol 10 MCG/KG/MIN Dexmedetomidine HCl 400 mcg/ 100 mls @ 3.36 mls/hr 03/24/19 12:45 03/27/19 01 :24 Sodium Chloride IVPB 0.77 mcg/kg/hr TITR [facility] 12.96 mls/hr Administration 0.2 MCG/KG/HR Sodium Phosphate 20 mm/ 256.6667 mls @ 62.5 mls/hr 03/27/19 12:00 Dextrose IVPB 03/27/19 16:06 ONCE ONE Insulin Aspart 1 vial 03/26/19 02:15 03/27/19 11:14 Novolog Vial Sliding Scale - SQ 6 units Q4H [facility] Administration Protocol Ondansetron HCl 4 mg 03/11/19 20:31 03/14/19 05:07 Zofran Injection IVPUSH 4 mg Q6H PRN Administration NAUSEA AND/OR VOMITING Pantoprazole Sodium 40 mg 03/20/19 10:00 03/27/19 10:46 Protonix Iv IVPUSH 40 mg DAILY [facility] Administration Vancomycin HCl 125 mg 03/15/19 18:00 03/27/19 11:14 Vancomycin Oral Solution PO 125 mg Q6HPO [facility] Administration ASSESSMENT/PLAN: This is a 48F PMH IDDM, PE on xarelto, frequent DKA, HTN, HLD, CVA w/ left sided weakness, recent hospitalization at [facility] September 2018 admitted to ICU for SBO. Developed pneumoperitoneum s/p ex-lap. POD #12 Neuro - sedated - intubated - able to wean off sedation, pt toleration improved may start spontaneous breathing trial. - Tylenol for pain/fever ctrl, spiking low grade fever 100 temp - dilaudid 1 mg q4h PRN for pain control CV - hx of transient a-fib with RVR - sinus tachy 105 - No longer hypotensive - Maintain MAP >65 - continue pressors - if persistent a-fib start amiodarone - continue monitoring urine output Respiratory - Patient remains intubated tried to wean sedation but unable to bc of tachycardia and tachypnea. - Lasix IV 40 BID today - CXR showing some increased congestion - monitor resp status - sedation vacation attempted, patient began having increased work of breathing and was placed back on sedation - sopntaneous breathing trial as tolerated. GI - Crohn's flair likely, pneumoperitoneum s/p ex-lap - GI recs appreciated continuing w/ C diff management - confirmed with surgery regarding CT abdomen and pelvis with contrast via NG tube and IV contrast to assess for a fluid collection/other cause of infection. - VAC dressing change due Friday, 03/28 per surgery. - Antibiotics per ID - Transfuse 1 prbc will rpt cbc after this. - increased pivot to 50cc/hr yesterday per dietaries request. ID-> C diff - c/w vanco, sylvester, zyvoxx - Cx + LF neg bacilli - UCx + VRE - CDiff Ag and toxin pos - WBC 8.5 Endocrine - d/c levemir - novolog SS - d/c tube feeds due to emesis. - pt been hyperglycemic today, doing better FEN - Lytes in AM, replete PRN - potassium repleted (goal of 4) - Monitor I/Os - Monitor UrO, Cr PPx: Lovenox 110, SCDs Dispo: continue ICU care Visit type - Emergency Visit Emergency Visit: Yes ED Registration Date: 03/09/19 Care time: The patient presented to the Emergency Department on the above date and was hospitalized for further evaluation of their emergent condition. - New Patient This patient is new to me today: No - Critical Care Critical Care patient: Yes Total Critical Care Time (in minutes): 35 Critical Care Statement: The care of this patient involved high complexity decision making to prevent further life threatening deterioration of the patient 's condition and/or to evaluate & treat vital organ system(s) failure or risk of failure. - Discharge Referral Referred to [facility] No ATTENDING PHYSICIAN STATEMENT I saw and evaluated the patient. I reviewed the resident's note and discussed the case with the resident. I agree with the resident's findings and plan as documented. SUBJECTIVE: OBJECTIVE: ASSESSMENT AND PLAN:
--- NOTE | 2019-03-27 12:51 | PN ---
Progress Note, Physician History of Present Illness: Pt remains intubated/sedated. Temps minimally elevated, off pressors. - Current Medication List Current Medications: Active Medications Acetaminophen (Ofirmev Injection -) 1,000 mg IVPB Q6H PRN PRN Reason: PAIN OR FEVER Last Admin: 03/26/19 11:23 Dose: 1,000 mg Amino Acids (Prosource No Carb Liquid Pkt) 30 ml PO DAILY [facility] Last Admin: 03/27/19 10:46 Dose: 30 ml Enoxaparin Sodium (Lovenox -) 110 mg SQ DAILY [facility] Last Admin: 03/27/19 10:46 Dose: 110 mg Furosemide (Lasix Injection -) 40 mg IVPUSH BID@0600,1400 [facility] Hydromorphone HCl (Dilaudid Vial -) 1 mg IVPB Q4H PRN PRN Reason: PAIN LEVEL 1-5 Linezolid (Zyvox 600 Mg Premix Bag (Restricted To Id) -) 600 mg in 300 mls @ 300 mls/hr IVPB Q12H [facility]; Protocol Last Admin: 03/27/19 11:14 Dose: 300 mls/hr Fentanyl 500 mcg/ Dextrose 100 mls @ 10 mls/hr IVPB TITR [facility]; Protocol Last Admin: 03/27/19 10:46 Dose: 75 mcg/hr, 15 mls/hr Meropenem 1 gm/ Dextrose 100 mls @ 200 mls/hr IVPB Q8H-IV [facility] Last Admin: 03/27/19 10:46 Dose: 200 mls/hr Propofol (Diprivan -) 1,000,000 mcg in 100 mls @ 4.041 mls/hr IVPB TITR [facility]; Protocol Last Titration: 03/27/19 03:29 Dose: 15 mcg/kg/min, 6.062 mls/hr Dexmedetomidine HCl 400 mcg/ (Sodium Chloride) 100 mls @ 3.36 mls/hr IVPB TITR [facility] Last Admin: 03/27/19 01:24 Dose: 0.77 mcg/kg/hr, 12.96 mls/hr Sodium Phosphate 20 mm/ (Dextrose) 256.6667 mls @ 62.5 mls/hr IVPB ONCE ONE Stop: 03/27/19 16:06 Last Admin: 03/27/19 12:28 Dose: 62.5 mls/hr Insulin Aspart (Novolog Vial Sliding Scale -) 1 vial SQ Q4H [facility]; Protocol Last Admin: 03/27/19 11:14 Dose: 6 units Ondansetron HCl (Zofran Injection) 4 mg IVPUSH Q6H PRN PRN Reason: NAUSEA AND/OR VOMITING Last Admin: 03/14/19 05:07 Dose: 4 mg Pantoprazole Sodium (Protonix Iv) 40 mg IVPUSH DAILY [facility] Last Admin: 03/27/19 10:46 Dose: 40 mg Vancomycin HCl (Vancomycin Oral Solution) 125 mg PO Q6HPO [facility] Last Admin: 03/27/19 11:14 Dose: 125 mg - Objective Vital Signs: Vital Signs Temperature 99.3 F 03/27/19 10:00 Pulse Rate 94 H 03/27/19 12:00 Respiratory Rate 21 H 03/27/19 12:15 Blood Pressure 108/67 03/27/19 12:00 O2 Sat by Pulse Oximetry (%) 100 03/27/19 04:12 Constitutional: Yes: Other (sedated) Eyes: Yes: Conjunctiva Clear Cardiovascular: Yes: Tachycardia Respiratory: Yes: Mechanically Ventilated Gastrointestinal: Yes: Normal Bowel Sounds, Soft, Abdomen, Obese Genitourinary: Yes: Lott Present Integumentary: Yes: WNL Wound/Incision: Yes: Other (wound vac) Neurological: Yes: Other (on sedation) Labs: CBC, BMP 03/27/19 06:00 03/27/19 06:00 INR, PTT INR 0.95 (0.83-1.09) 03/26/19 06:00 Fibrinogen 359.0 mg/dL (238-498) 03/19/19 23:15 Microbiology 03/26/19 08:30 Blood - Central Line Blood Culture - Preliminary NO GROWTH OBTAINED AFTER 24 HOURS, INCUBATION TO CONTINUE FOR 4 DAYS. 03/25/19 18:30 Blood - Peripheral Venous Blood Culture - Preliminary NO GROWTH OBTAINED AFTER 24 HOURS, INCUBATION TO CONTINUE FOR 4 DAYS. 03/25/19 18:30 Blood - Peripheral Venous Blood Culture - Preliminary NO GROWTH OBTAINED AFTER 24 HOURS, INCUBATION TO CONTINUE FOR 4 DAYS. 03/21/19 18:15 Blood - Central Line Blood Culture - Final NO GROWTH AFTER 5 DAYS INCUBATION 03/25/19 17:00 Blood - Central Line Blood Culture - Preliminary NO GROWTH OBTAINED AFTER 24 HOURS, INCUBATION TO CONTINUE FOR 4 DAYS. 03/21/19 13:25 Blood - Central Line Blood Culture - Final NO GROWTH AFTER 5 DAYS INCUBATION 03/23/19 19:00 Sputum - Endotrachea Suction/Ventilator Gram Stain - Final 03/23/19 19:00 Sputum - Endotrachea Suction/Ventilator Sputum Culture - Final Yeast Like Organism 03/23/19 19:00 Urine - Urine Lott Urine Culture - Final NO GROWTH OBTAINED 03/12/19 19:30 Peritoneal Fluid Gram Stain - Final 03/12/19 19:30 Peritoneal Fluid Body Fluid Culture - Final Klebsiella Pneumoniae - Esbl Enterococcus Faecalis 03/12/19 19:30 Peritoneal Fluid Anaerobic Culture - Final NO ANAEROBES WERE ISOLATED 03/14/19 23:00 Stool Clostridioides difficile Antigen - Final 03/14/19 23:00 Stool Clostridioides difficile Toxin Assay - Final 03/10/19 08:30 Blood - Arterial Blood Culture - Final NO GROWTH AFTER 5 DAYS INCUBATION 03/10/19 08:00 Blood - Arterial Blood Culture - Final NO GROWTH AFTER 5 DAYS INCUBATION 03/09/19 17:00 Urine - Urine Clean Catch Urine Culture - Final Vr Ec Faecium - ....Imaging Chest X-ray: Report Reviewed Problem List - Problems (1) Diabetes Code(s): E11.9 - TYPE 2 DIABETES MELLITUS WITHOUT COMPLICATIONS (2) HLD (hyperlipidemia) Code(s): E78.5 - HYPERLIPIDEMIA, UNSPECIFIED (3) HTN (hypertension) Code(s): I10 - ESSENTIAL (PRIMARY) HYPERTENSION (4) Crohn's disease Code(s): K50.90 - CROHN'S DISEASE, UNSPECIFIED, WITHOUT COMPLICATIONS Qualifiers: Gastrointestinal tract location: small intestine Digestive disease complication type: with rectal bleeding Qualified Code(s): K50.011 - Crohn's disease of small intestine with rectal bleeding (5) Cerebrovascular accident (CVA) Code(s): I63.9 - CEREBRAL INFARCTION, UNSPECIFIED Qualifiers: CVA mechanism: unspecified Qualified Code(s): I63.9 - Cerebral infarction, unspecified (6) Diabetes mellitus, insulin dependent (IDDM), uncontrolled Code(s): E10.65 - TYPE 1 DIABETES MELLITUS WITH HYPERGLYCEMIA Assessment/Plan 48 y.o. female with PMH of uncontrolled IDDM and DKA, Crohn's disease on prednisone, CVA, PE, HTN, HLD presenting with abdominal pain Acute Respiratory failure on MV/sedation s/p cardiopulmonary arrest Septic Shock Fever SB perforation s/p Ex-lap/RAYSHAWN/partial SB and omental resection with anastomosis/ washout Peritonitis C diff colitis Crohn's disease IDDM Hx of multiple DKA Hx of CVA Hx of PE HTN HLD -- Pt remains intubated and sedated -- continue Meropenem and Vancomycin PO, will d/c linezolid and switch to Daptomycin to avoid drug interactions -- latest blood cultures neg so far -- continue monitor temps -- rest of care per ICU Pt remains critically ill cc time: 38 min.
[2019-03-27] MEDS: FUROSEMIDE 40 MG/4 ML INJECTABLE VIAL IVPUSH SCH (14:14)
[2019-03-27] MEDS: ACETAMINOPHEN 1000 MG/100 ML VIAL (NON FORMULARY) IVPB PRN (21:54)
[2019-03-27] MEDS: DAPTOMYCIN 400 MG in SODIUM CHLORIDE 50 ML IVPB SCH (23:10)
[2019-03-27] MEDS: PROPOFOL 1,000,000 MCG/100 ML VIAL IVPB SCH (23:15)
[2019-03-28] MEDS: VANCOMYCIN 250 MG/5 ML ORAL SOLUTION PO SCH ×5 (00:47→23:03)
[2019-03-28] MEDS ORDERED: fentaNYL CITRATE 250 MCG/5 ML VIAL ONE ×4 (02:28→20:25)
[2019-03-28] MEDS: FENTANYL INJECTION 500 MCG in DEXTROSE 5%-WATER - 90 ML IVPB SCH ×3 (02:35→20:38)
[2019-03-28] MEDS ORDERED: MEROPENEM 1 GM VIAL (RESTRICTED TO ID) IVPB ONE ×3 (03:34→17:17)
[2019-03-28] MEDS ORDERED: DEXTROSE 5%-WATER 100 ML IVPB ONE ×3 (03:35→17:17)
[2019-03-28] MEDS: DEXMEDETOMIDINE HCL 400 MCG in SODIUM CHLORIDE 96 ML IVPB SCH ×3 (03:36→21:44)
[2019-03-28] MEDS: MEROPENEM 1 GM in DEXTROSE 5%-WATER 100 ML IVPB SCH ×2 (03:36→09:09)
[2019-03-28] MEDS: INSULIN SLIDING SCALE (NOVOLOG) 1 VIAL SQ SCH ×6 (03:40→21:46)
[2019-03-28] MEDS: FUROSEMIDE 40 MG/4 ML INJECTABLE VIAL IVPUSH SCH ×2 (06:40→13:56)
[2019-03-28 07:28] LABS: BASO % 1.5 % (0-2.0); EOS % 3.9 % (0-4.5); HEMATOCRIT 27.3 % (32.4-45.2); HEMOGLOBIN 8.8 GM/dL (10.7-15.3); LYMPH % 26.7 % (8-40); MCH 26.9 pg (25.7-33.7); MCHC 32.4 g/dl (32.0-36.0); MEAN CELL VOLUME 83.1 fl (80-96); MEAN PLT VOLUME 7.8 fl (7.5-11.1); NEUT % 54.9 % (42.8-82.8); PLATELET COUNT 409 K/MM3 (134-434); RBC 3.28 M/mm3 (3.60-5.2); RDW 22.9 % (11.6-15.6); WHITE BLOOD COUNT 7.5 K/mm3 (4.0-10.0)
--- NOTE | 2019-03-28 07:44 | PN.GI ---
GI Progress Note Subjective: fever / sedated / intubated - stool noted in the perez bag - no gross blood - Objective Vital Signs: Vital Signs Temperature 100.8 F H 03/28/19 06:00 Pulse Rate 99 H 03/28/19 06:00 Respiratory Rate 20 03/28/19 06:00 Blood Pressure 116/70 03/28/19 06:00 O2 Sat by Pulse Oximetry (%) 100 03/28/19 04:00 Constitutional: No Distress Eyes: Yes: WNL HENT: Yes: WNL Neck: Yes: WNL Cardiovascular: Yes: WNL, Regular Rate and Rhythm Respiratory: Yes: WNL, Regular, CTA Bilaterally ...Auscultate: Yes: Other ( bs present not tender) Extremities: Yes: WNL Edema: No Labs: CBC, BMP 03/28/19 05:50 INR, PTT INR 0.95 (0.83-1.09) 03/26/19 06:00 Fibrinogen 359.0 mg/dL (238-498) 03/19/19 23:15 Problem List - Problems (1) C. difficile diarrhea Assessment/Plan: c/w po vanco and tube feeds micu supportive care Code(s): A04.72 - ENTEROCOLITIS D/T CLOSTRIDIUM DIFFICILE, NOT SPCF RECUR
[2019-03-28 07:47] LABS: ALBUMIN 1.4 g/dl (3.4-5.0); BILIRUBIN,TOTAL 0.2 mg/dL (0.2-1); BLOOD UREA NITROGEN 13.4 mg/dL (7-18); CALCIUM 7.6 mg/dL (8.5-10.1); CREATININE 0.4 mg/dL (0.55-1.3); PHOSPHOROUS 1.9 mg/dL (2.5-4.9); POTASSIUM 3.8 mmol/L (3.5-5.1); TOT PROT 4.9 g/dl (6.4-8.2)
--- NOTE | 2019-03-28 08:33 | PN ---
Progress Note, Physician Chief Complaint: orally intubated and sedated History of Present Illness: 48 year-old female with a PMH significant for Type I IDDM, frequent admissions for DKA, HTN, HLD, CVA with left-sided weakness. Recent hospitalization at [facility] September 2018 for SBO. She is s/p post exploratory lap and resection of illial perforation 03/12. Post op course treated for bacteremia and C-Diff. AC was restarted post op (lovenox 110). She became pulseless on 03/19/19 at 0600 and CPR was initiated. She was given epi and intubated to protect airway. tele showed rapid afib. She had a troponin elevation and her ekg w/o st elevations. she was evaluated by cardiology and remains intubated in the ICU. - Current Medication List Current Medications: Active Medications Acetaminophen (Ofirmev Injection -) 1,000 mg IVPB ONCE ONE Stop: 03/28/19 08:01 Amino Acids (Prosource No Carb Liquid Pkt) 30 ml PO DAILY [facility] Last Admin: 03/27/19 10:46 Dose: 30 ml Enoxaparin Sodium (Lovenox -) 110 mg SQ DAILY [facility] Last Admin: 03/27/19 10:46 Dose: 110 mg Furosemide (Lasix Injection -) 40 mg IVPUSH BID@0600,1400 [facility] Last Admin: 03/28/19 06:40 Dose: 40 mg Hydromorphone HCl (Dilaudid Vial -) 1 mg IVPB Q4H PRN PRN Reason: PAIN LEVEL 1-5 Fentanyl 500 mcg/ Dextrose 100 mls @ 10 mls/hr IVPB TITR [facility]; Protocol Last Admin: 03/28/19 02:35 Dose: 80 mcg/hr, 16 mls/hr Meropenem 1 gm/ Dextrose 100 mls @ 200 mls/hr IVPB Q8H-IV [facility] Last Admin: 03/28/19 03:36 Dose: 200 mls/hr Propofol (Diprivan -) 1,000,000 mcg in 100 mls @ 4.041 mls/hr IVPB TITR [facility]; Protocol Last Titration: 03/28/19 06:46 Dose: 35 mcg/kg/min, 14.145 mls/hr Dexmedetomidine HCl 400 mcg/ (Sodium Chloride) 100 mls @ 3.36 mls/hr IVPB TITR [facility] Last Admin: 03/28/19 03:36 Dose: 0.85 mcg/kg/hr, 14.31 mls/hr Daptomycin 400 mg/ Sodium (Chloride) 50 mls @ 50 mls/hr IVPB DAILY@2300 [facility]; Protocol Last Admin: 03/27/19 23:10 Dose: 50 mls/hr Insulin Aspart (Novolog Vial Sliding Scale -) 1 vial SQ Q4H [facility]; Protocol Last Admin: 03/28/19 06:40 Dose: 4 units Ondansetron HCl (Zofran Injection) 4 mg IVPUSH Q6H PRN PRN Reason: NAUSEA AND/OR VOMITING Last Admin: 03/14/19 05:07 Dose: 4 mg Pantoprazole Sodium (Protonix Iv) 40 mg IVPUSH DAILY [facility] Last Admin: 03/27/19 10:46 Dose: 40 mg Vancomycin HCl (Vancomycin Oral Solution) 125 mg PO Q6HPO [facility] Last Admin: 03/28/19 06:40 Dose: 125 mg - Objective Vital Signs: Vital Signs Temperature 101.0 F H 03/28/19 08:00 Pulse Rate 101 H 03/28/19 08:00 Respiratory Rate 20 03/28/19 08:00 Blood Pressure 89/62 L 03/28/19 08:00 O2 Sat by Pulse Oximetry (%) 100 03/28/19 04:00 Constitutional: Yes: Other (Intubated and sedated pn propofol, precedex, fentanyl/dilaudid for pain) Eyes: Yes: Other (scleral edmea) HENT: Yes: WNL, Atraumatic, Normocephalic Neck: Yes: WNL, Supple, Trachea Midline Cardiovascular: Yes: Regular Rate and Rhythm, Tachycardia Respiratory: Yes: Diminished (at bases), Rhonchi (scattered), Other (orally intubated) Gastrointestinal: Yes: Soft, Hypoactive Bowel Sounds, Other (NGT) ...Rectal Exam: Yes: Other (rectal rube in place) Genitourinary: Yes: Lott Present Musculoskeletal: Yes: Other (sedated) Edema: Yes Edema: LUE: 2+, RUE: 2+, LLE: 2+, RLE: 2+ Peripheral Pulses WNL: No Peripheral Pulses: Left Radial: 1+, Right Radial: 1+, Left Doralis Pedis: 1+, Right Dorsalis Pedis: 1+, Left Femoral: 1+, Right Femoral: 1+ Integumentary: Yes: Incision Wound/Incision: Yes: Other (abd wound vac) Psychiatric: Yes: Other (sedated) Labs: CBC, BMP 03/28/19 05:50 03/28/19 05:50 INR, PTT INR 0.95 (0.83-1.09) 03/26/19 06:00 Fibrinogen 359.0 mg/dL (238-498) 03/19/19 23:15 Problem List - Problems (1) HLD (hyperlipidemia) Assessment/Plan: NPO Code(s): E78.5 - HYPERLIPIDEMIA, UNSPECIFIED (2) Left-sided weakness Assessment/Plan: PT when no longer requiring ICU monitoring Code(s): R53.1 - WEAKNESS (3) History of open heart surgery Code(s): Z98.890 - OTHER SPECIFIED POSTPROCEDURAL STATES (4) Acute Crohn's disease Assessment/Plan: history of chrons followed at [facility], was suppose to start infliximab but never followed through off steroids Code(s): K50.90 - CROHN'S DISEASE, UNSPECIFIED, WITHOUT COMPLICATIONS (5) Gastroparesis Code(s): K31.84 - GASTROPARESIS (6) Abdominal pain Assessment/Plan: s/p bowel resection with viscous repair general surgery following wound dihensence noted at distal portion, vac in place dressing changes as per surgery Code(s): R10.9 - UNSPECIFIED ABDOMINAL PAIN Qualifiers: Abdominal location: generalized Qualified Code(s): R10.84 - Generalized abdominal pain (7) Small bowel obstruction Assessment/Plan: s/p perforated viscus repair dressing changes as per surgical team Code(s): K56.609 - UNSP INTESTNL OBST, UNSP TO PARTIAL VERSUS COMPLETE OBST (8) Cerebrovascular accident (CVA) Assessment/Plan: left sided weakness PT to follow when no longer requiring ICU care Code(s): I63.9 - CEREBRAL INFARCTION, UNSPECIFIED Qualifiers: CVA mechanism: unspecified Qualified Code(s): I63.9 - Cerebral infarction, unspecified (9) Chronic pain Assessment/Plan: sedated with precedex/ fentanyl/profolol Code(s): G89.29 - OTHER CHRONIC PAIN Qualifiers: Chronic pain type: chronic pain syndrome Qualified Code(s): G89.4 - Chronic pain syndrome (10) Prophylactic measure Assessment/Plan: FEN Jevity monitor electrolytes IVF DVT lovenox sq Dispo requires ICU care full code palliative care following prognosis critical discharge planning Code(s): Z29.9 - ENCOUNTER FOR PROPHYLACTIC MEASURES, UNSPECIFIED (11) Diabetes Assessment/Plan: BGM q4h careful glycemic control with multiple episodes of DKA c/w D10 levemir on hold Code(s): E11.9 - TYPE 2 DIABETES MELLITUS WITHOUT COMPLICATIONS (12) Perforated abdominal viscus Assessment/Plan: s/p Ex-lap/RAYSHAWN/partial SB and omental resection with anastomosis/washou appreciate surgical and ID consultation c/w abx Code(s): [id number] - (13) Hypoxia Assessment/Plan: Acute respiratory failure orally intuabted on mechanical ventilation attempt weaning trial if more responsive off sedation lasix IV BID appreciate ICU level of care Code(s): R09.02 - HYPOXEMIA (14) C. difficile diarrhea Assessment/Plan: rectal tube in place, diarrhea improving -Continue vancomycin PO -c/w rectal tube Code(s): A04.72 - ENTEROCOLITIS D/T CLOSTRIDIUM DIFFICILE, NOT SPCF RECUR (15) ESBL (extended spectrum beta-lactamase) producing bacteria infection Code(s): A49.9 - BACTERIAL INFECTION, UNSPECIFIED; Z16.12 - EXTENDED SPECTRUM BETA LACTAMASE (ESBL) RESISTANCE (16) Clostridium difficile diarrhea Code(s): A04.72 - ENTEROCOLITIS D/T CLOSTRIDIUM DIFFICILE, NOT SPCF RECUR (17) Hypotension Code(s): I95.9 - HYPOTENSION, UNSPECIFIED (18) Admitted to intensive care unit Code(s): Z78.9 - OTHER SPECIFIED HEALTH STATUS Visit type - Emergency Visit Emergency Visit: Yes ED Registration Date: 03/09/19 Care time: The patient presented to the Emergency Department on the above date and was hospitalized for further evaluation of their emergent condition. - New Patient This patient is new to me today: No - Critical Care Critical Care patient: Yes Total Critical Care Time (in minutes): 45 Critical Care Statement: The care of this patient involved high complexity decision making to prevent further life threatening deterioration of the patient 's condition and/or to evaluate & treat vital organ system(s) failure or risk of failure. - Discharge Referral Referred to [facility] No
[2019-03-28] MEDS ORDERED: ACETAMINOPHEN 1000 MG/100 ML VIAL (NON FORMULARY) IVPB ONE ×2 (09:00→14:51)
[2019-03-28] MEDS: AMINO ACIDS/PROTEIN HYDROLYS 30 ML LIQUID.PKT PO SCH (09:42)
[2019-03-28] MEDS: ENOXAPARIN NA (PORCINE) 60 MG/0.6 ML DISP.SYRIN SQ SCH (09:42)
[2019-03-28] MEDS: PANTOPRAZOLE SODIUM 40 MG VIAL IVPUSH SCH (09:44)
--- NOTE | 2019-03-28 10:33 | PN ---
Teaching Attending Note Name of Resident: Baljeet Parr ATTENDING PHYSICIAN STATEMENT I saw and evaluated the patient. I reviewed the resident's note and discussed the case with the resident. I agree with the resident's findings and plan as documented. SUBJECTIVE: Pt seen and examined in the ICU. Remains intubated, sedated. Breathing labored on assist control. Fevers persist. OBJECTIVE: Vital Signs Period Temp Pulse Resp BP Sys/Rapp Pulse Ox Last 24 Hr 99.4 F-101.1 F 80-112 19-28 87-133/52-81 97-100 Intake & Output 03/25/19 03/26/19 03/27/19 03/28/19 23:59 23:59 23:59 23:59 Intake Total 4364.2 3759 2376 666 Output Total 1550 2525 2250 3600 Balance 2814.2 1234 126 -2934 Weight 66.451 kg 67.404 kg 68.674 kg 68.674 kg Gen: intubated, sedated, tachypneic Heart: RRR Lung: scattered rhonchi Abd: soft, nontender Ext:+ edema CBC, BMP 03/28/19 05:50 03/28/19 05:50 Active Medications Amino Acids (Prosource No Carb Liquid Pkt) 30 ml PO DAILY [facility] Last Admin: 03/28/19 09:42 Dose: 30 ml Enoxaparin Sodium (Lovenox -) 110 mg SQ DAILY [facility] Last Admin: 03/28/19 09:42 Dose: 110 mg Furosemide (Lasix Injection -) 40 mg IVPUSH BID@0600,1400 [facility] Last Admin: 03/28/19 06:40 Dose: 40 mg Hydromorphone HCl (Dilaudid Vial -) 1 mg IVPB Q4H PRN PRN Reason: PAIN LEVEL 1-5 Fentanyl 500 mcg/ Dextrose 100 mls @ 10 mls/hr IVPB TITR [facility]; Protocol Last Admin: 03/28/19 09:05 Dose: 80 mcg/hr, 16 mls/hr Meropenem 1 gm/ Dextrose 100 mls @ 200 mls/hr IVPB Q8H-IV [facility] Last Admin: 03/28/19 09:09 Dose: 200 mls/hr Propofol (Diprivan -) 1,000,000 mcg in 100 mls @ 4.041 mls/hr IVPB TITR [facility]; Protocol Last Titration: 03/28/19 06:46 Dose: 35 mcg/kg/min, 14.145 mls/hr Dexmedetomidine HCl 400 mcg/ (Sodium Chloride) 100 mls @ 3.36 mls/hr IVPB TITR [facility] Last Admin: 03/28/19 03:36 Dose: 0.85 mcg/kg/hr, 14.31 mls/hr Daptomycin 400 mg/ Sodium (Chloride) 50 mls @ 50 mls/hr IVPB DAILY@2300 [facility]; Protocol Last Admin: 03/27/19 23:10 Dose: 50 mls/hr Insulin Aspart (Novolog Vial Sliding Scale -) 1 vial SQ Q4H [facility]; Protocol Last Admin: 03/28/19 06:40 Dose: 4 units Ondansetron HCl (Zofran Injection) 4 mg IVPUSH Q6H PRN PRN Reason: NAUSEA AND/OR VOMITING Last Admin: 03/14/19 05:07 Dose: 4 mg Pantoprazole Sodium (Protonix Iv) 40 mg IVPUSH DAILY [facility] Last Admin: 03/28/19 09:44 Dose: 40 mg Vancomycin HCl (Vancomycin Oral Solution) 125 mg PO Q6HPO [facility] Last Admin: 03/28/19 06:40 Dose: 125 mg ASSESSMENT AND PLAN: s/p Cardiopulmonary Arrest r/o Anoxic Brain Injury Acute Hypoxic Respiratory Failure Perforated Small Bowel s/p ex-lap/RAYSHAWN/segmental SB resection Crohn's Disease Peritonitis +C diff Colitis Septic Shock Lactic Acidosis Volume Overload h/o PE HTN DM Hyperlipidemia Anemia Thrombocytopenia h/o CVA - continue antibiotics per ID - reculture - IV lasix BID today - monitor urine output, creatinine - off pressors, maintain MAP > 65 - continue anticoagulation - sedate for vent synchrony - daily sedation vacations to assess mental status - spontaneous breathing trials as tolerated when mental status improved - enteral feeds - DVT/GI prophylaxis - continue ICU monitoring critical care time spent in reviewing chart, evaluating patient and formulating plan 35 min
--- NOTE | 2019-03-28 10:34 | PN ---
Physical Exam: SUBJECTIVE: Patient seen and examined at bedside in the ICU. Patient is intubated and sedated. Fever of 103 overnight and 101 this morning - IV tylenol given both times. OBJECTIVE: Vital Signs Period Temp Pulse Resp BP Sys/Rapp Pulse Ox Last 24 Hr 99.4 F-101.1 F 80-112 19-28 87-133/52-81 97-100 GENERAL: The patient is sedated and intubated. HEAD: Normal with no signs of trauma. EYES: PERRL, sclera anicteric, conjunctiva clear. No ptosis. ENT: Ears normal, nares patent, oropharynx clear without exudates, moist mucous membranes. NECK: Trachea midline, full range of motion, supple. LUNGS: Labored breathing. Tachypnea. Breath sounds equal. Diffuse rhonchi bilaterally. HEART: Regular rate and rhythm, S1, S2 without murmur, rub or gallop. ABDOMEN: Soft, nontender, non-distended. Wound vac in place over abdominal incision. EXTREMITIES: 2+ pulses, warm, well-perfused. 2+ pitting edema upper/lower extremities. NEUROLOGICAL: Cranial nerves II through XII grossly intact. Gait not observed. SKIN: Warm, dry, normal turgor, no rashes or lesions noted Laboratory Results - last 24 hr 03/27/19 03/27/19 03/27/19 06:00 11:10 14:16 WBC RBC Hgb Hct MCV MCH MCHC RDW Plt Count MPV Absolute Neuts (auto) Neutrophils % Lymphocytes % Monocytes % Eosinophils % Basophils % Nucleated RBC % Platelet Estimate Adequate Platelet Comment Giant platelets Poikilocytosis 1+ Anisocytosis 2+ Microcytosis 1+ Spherocytes 1+ Target Cells 1+ Tear Drop Cells 1+ Sodium Potassium Chloride Carbon Dioxide Anion Gap BUN Creatinine Est GFR (CKD-EPI)AfAm Est GFR (CKD-EPI)NonAf POC Glucometer 254 226 Random Glucose Calcium Phosphorus Magnesium Total Bilirubin AST ALT Alkaline Phosphatase Total Protein Albumin 03/27/19 03/27/19 03/28/19 18:17 21:18 03:32 WBC RBC Hgb Hct MCV MCH MCHC RDW Plt Count MPV Absolute Neuts (auto) Neutrophils % Lymphocytes % Monocytes % Eosinophils % Basophils % Nucleated RBC % Platelet Estimate Platelet Comment Poikilocytosis Anisocytosis Microcytosis Spherocytes Target Cells Tear Drop Cells Sodium Potassium Chloride Carbon Dioxide Anion Gap BUN Creatinine Est GFR (CKD-EPI)AfAm Est GFR (CKD-EPI)NonAf POC Glucometer 123 283 218 Random Glucose Calcium Phosphorus Magnesium Total Bilirubin AST ALT Alkaline Phosphatase Total Protein Albumin 03/28/19 03/28/19 03/28/19 05:50 05:50 06:22 WBC 7.5 RBC 3.28 L Hgb 8.8 L Hct 27.3 L MCV 83.1 MCH 26.9 MCHC 32.4 RDW 22.9 H Plt Count 409 D MPV 7.8 Absolute Neuts (auto) 4.1 Neutrophils % 54.9 Lymphocytes % 26.7 Monocytes % 13.0 H Eosinophils % 3.9 Basophils % 1.5 Nucleated RBC % 0 Platelet Estimate Platelet Comment Poikilocytosis Anisocytosis Microcytosis Spherocytes Target Cells Tear Drop Cells Sodium 141 Potassium 3.8 Chloride 102 Carbon Dioxide 33 H Anion Gap 6 L BUN 13.4 Creatinine 0.4 L Est GFR (CKD-EPI)AfAm 141.75 Est GFR (CKD-EPI)NonAf 122.30 POC Glucometer 222 Random Glucose 251 H Calcium 7.6 L Phosphorus 1.9 L Magnesium 2.0 Total Bilirubin 0.2 AST 25 ALT 13 Alkaline Phosphatase 163 H Total Protein 4.9 L Albumin 1.4 L 03/28/19 10:07 WBC RBC Hgb Hct MCV MCH MCHC RDW Plt Count MPV Absolute Neuts (auto) Neutrophils % Lymphocytes % Monocytes % Eosinophils % Basophils % Nucleated RBC % Platelet Estimate Platelet Comment Poikilocytosis Anisocytosis Microcytosis Spherocytes Target Cells Tear Drop Cells Sodium Potassium Chloride Carbon Dioxide Anion Gap BUN Creatinine Est GFR (CKD-EPI)AfAm Est GFR (CKD-EPI)NonAf POC Glucometer 136 Random Glucose Calcium Phosphorus Magnesium Total Bilirubin AST ALT Alkaline Phosphatase Total Protein Albumin Active Medications Generic Name Dose Route Start Last Admin Trade Name Freq PRN Reason Stop Dose Admin Amino Acids 30 ml 03/26/19 15:30 03/28/19 09:42 Prosource No Carb Liquid Pkt PO 30 ml DAILY [facility] Administration Enoxaparin Sodium 110 mg 03/26/19 13:30 03/28/19 09:42 Lovenox - SQ 110 mg DAILY [facility] Administration Furosemide 40 mg 03/27/19 14:00 03/28/19 06:40 Lasix Injection - IVPUSH 40 mg BID@0600,1400 [facility] Administration Hydromorphone HCl 1 mg 09/27/19 04:22 Dilaudid Vial - IVPB Q4H PRN PAIN LEVEL 1-5 Fentanyl 500 mcg/ Dextrose 100 mls @ 10 mls/hr 03/20/19 09:30 03/28/19 09:05 IVPB 80 mcg/hr TITR [facility] 16 mls/hr Administration Protocol 50 MCG/HR Meropenem 1 gm/ Dextrose 100 mls @ 200 mls/hr 03/21/19 18:00 03/28/19 09:09 IVPB 200 mls/hr Q8H-IV [facility] Administration Propofol 1,000,000 mcg in 100 mls @ 4.041 mls/hr 03/24/19 00:15 03/28/19 06: 46 Diprivan - IVPB 35 mcg/kg/min TITR [facility] 14.145 mls/hr Titration Protocol 10 MCG/KG/MIN Dexmedetomidine HCl 400 mcg/ 100 mls @ 3.36 mls/hr 03/24/19 12:45 03/28/19 03 :36 Sodium Chloride IVPB 0.85 mcg/kg/hr TITR [facility] 14.31 mls/hr Administration 0.2 MCG/KG/HR Daptomycin 400 mg/ Sodium 50 mls @ 50 mls/hr 03/27/19 23:00 03/27/19 23:10 Chloride IVPB 50 mls/hr DAILY@2300 [facility] Administration Protocol Insulin Aspart 1 vial 03/26/19 02:15 03/28/19 06:40 Novolog Vial Sliding Scale - SQ 4 units Q4H [facility] Administration Protocol Ondansetron HCl 4 mg 03/11/19 20:31 03/14/19 05:07 Zofran Injection IVPUSH 4 mg Q6H PRN Administration NAUSEA AND/OR VOMITING Pantoprazole Sodium 40 mg 03/20/19 10:00 03/28/19 09:44 Protonix Iv IVPUSH 40 mg DAILY [facility] Administration Vancomycin HCl 125 mg 03/15/19 18:00 03/28/19 06:40 Vancomycin Oral Solution PO 125 mg Q6HPO [facility] Administration ASSESSMENT/PLAN: This is a 48F PMH IDDM, PE on xarelto, frequent DKA, HTN, HLD, CVA w/ left sided weakness, recent hospitalization at [facility] September 2018 admitted to ICU for SBO. Developed pneumoperitoneum s/p ex-lap. POD #13 Neuro - sedated - intubated - able to wean off sedation, pt toleration improved, will attempt to start spontaneous breathing trial - Tylenol for pain/fever ctrl, spiking low grade fever 100 temp - dilaudid 1 mg q4h PRN for pain control CV - hx of transient a-fib with RVR - sinus tachy 100 - No longer hypotensive - Maintain MAP >65 - continue pressors (precedex) - if persistent a-fib start amiodarone - continue monitoring urine output Respiratory - Patient remains intubated - Lasix IV 40 BID today - CXR showing some increased congestion - monitor resp status - spontaneous breathing trial as tolerated. GI - Crohn's flair likely, pneumoperitoneum s/p ex-lap - GI recs appreciated continuing w/ C diff management - confirmed with surgery regarding CT abdomen and pelvis with contrast via NG tube and IV contrast to assess for a fluid collection/other cause of infection. - VAC dressing change due today (03/28) per surgery. - Antibiotics per ID - Transfuse 1 prbc yesterday will rpt cbc after this. - increased pivot to 50cc/hr yesterday per dietaries request. ID-> C diff - c/w vanco, slyvester, daptomycin - Cx + LF neg bacilli - UCx + VRE - CDiff Ag and toxin pos - WBC 7.5 - repeat blood/urine/sputum cultures as pt continues to spike fevers Endocrine - d/c levemir - novolog SS FEN - Lytes in AM, replete PRN - potassium repleted (goal of 4) - Monitor I/Os - Monitor UrO, Cr PPx: Lovenox 110, SCDs Dispo: continue ICU care Visit type - Emergency Visit Emergency Visit: Yes ED Registration Date: 03/09/19 Care time: The patient presented to the Emergency Department on the above date and was hospitalized for further evaluation of their emergent condition. - New Patient This patient is new to me today: No - Critical Care Critical Care patient: Yes Total Critical Care Time (in minutes): 35 Critical Care Statement: The care of this patient involved high complexity decision making to prevent further life threatening deterioration of the patient 's condition and/or to evaluate & treat vital organ system(s) failure or risk of failure. ATTENDING PHYSICIAN STATEMENT I saw and evaluated the patient. I reviewed the resident's note and discussed the case with the resident. I agree with the resident's findings and plan as documented. SUBJECTIVE: OBJECTIVE: ASSESSMENT AND PLAN:
[2019-03-28] MEDS ORDERED: PT OWN MED DRAWER 7, Y5N ONE (11:25)
[2019-03-28 12:30] LABS: URINE APPEARANCE Clear; URINE BILIRUBIN Negative (NEGATIVE); URINE COLOR Yellow; URINE GLUCOSE (UA) Negative (NEGATIVE); URINE KETONE Trace (NEGATIVE); URINE LEUK ESTERASE Negative (NEGATIVE); URINE NITRITE Negative (NEGATIVE); URINE PROTEIN TRACE (NEGATIVE); URINE UROBILINOGEN 0.2 mg/dL (0.2-1.0)
--- NOTE | 2019-03-28 18:28 | PN ---
Progress Note, Physician History of Present Illness: Pt with persistent fevers. Remains intubated/sedated. - Current Medication List Current Medications: Active Medications Amino Acids (Prosource No Carb Liquid Pkt) 30 ml PO DAILY [facility] Last Admin: 03/28/19 09:42 Dose: 30 ml Enoxaparin Sodium (Lovenox -) 110 mg SQ DAILY [facility] Last Admin: 03/28/19 09:42 Dose: 110 mg Furosemide (Lasix Injection -) 40 mg IVPUSH BID@0600,1400 [facility] Last Admin: 03/28/19 13:56 Dose: 40 mg Hydromorphone HCl (Dilaudid Vial -) 1 mg IVPB Q4H PRN PRN Reason: PAIN LEVEL 1-5 Fentanyl 500 mcg/ Dextrose 100 mls @ 10 mls/hr IVPB TITR [facility]; Protocol Last Admin: 03/28/19 09:05 Dose: 80 mcg/hr, 16 mls/hr Propofol (Diprivan -) 1,000,000 mcg in 100 mls @ 4.041 mls/hr IVPB TITR [facility]; Protocol Last Titration: 03/28/19 06:46 Dose: 35 mcg/kg/min, 14.145 mls/hr Dexmedetomidine HCl 400 mcg/ (Sodium Chloride) 100 mls @ 3.36 mls/hr IVPB TITR [facility] Last Admin: 03/28/19 14:01 Dose: 0.85 mcg/kg/hr, 14.31 mls/hr Daptomycin 400 mg/ Sodium (Chloride) 50 mls @ 50 mls/hr IVPB DAILY@2300 [facility]; Protocol Last Admin: 03/27/19 23:10 Dose: 50 mls/hr Insulin Aspart (Novolog Vial Sliding Scale -) 1 vial SQ Q4H [facility]; Protocol Last Admin: 03/28/19 15:37 Dose: 12 units Ondansetron HCl (Zofran Injection) 4 mg IVPUSH Q6H PRN PRN Reason: NAUSEA AND/OR VOMITING Last Admin: 03/14/19 05:07 Dose: 4 mg Pantoprazole Sodium (Protonix Iv) 40 mg IVPUSH DAILY [facility] Last Admin: 03/28/19 09:44 Dose: 40 mg Vancomycin HCl (Vancomycin Oral Solution) 125 mg PO Q6HPO [facility] Last Admin: 03/28/19 17:24 Dose: 125 mg - Objective Vital Signs: Vital Signs Temperature 100.8 F H 03/28/19 12:00 Pulse Rate 108 H 03/28/19 12:00 Respiratory Rate 21 H 03/28/19 16:22 Blood Pressure 113/61 03/28/19 12:00 O2 Sat by Pulse Oximetry (%) 100 03/28/19 04:00 Eyes: Yes: Conjunctiva Clear Cardiovascular: Yes: Tachycardia Respiratory: Yes: Mechanically Ventilated Gastrointestinal: Yes: Normal Bowel Sounds, Soft, Other (rectal tube with loose stool) Genitourinary: Yes: Lott Present Musculoskeletal: Yes: WNL Extremities: Yes: WNL Integumentary: Yes: WNL Neurological: Yes: Other (on sedation) Labs: CBC, BMP 03/28/19 05:50 03/28/19 05:50 INR, PTT INR 0.95 (0.83-1.09) 03/26/19 06:00 Fibrinogen 359.0 mg/dL (238-498) 03/19/19 23:15 Microbiology 03/25/19 17:00 Blood - Central Line Blood Culture - Preliminary NO GROWTH OBTAINED AFTER 72 HOURS, INCUBATION TO CONTINUE FOR 2 DAYS. 03/26/19 08:30 Blood - Central Line Blood Culture - Preliminary NO GROWTH OBTAINED AFTER 48 HOURS, INCUBATION TO CONTINUE FOR 3 DAYS. 03/25/19 18:30 Blood - Peripheral Venous Blood Culture - Preliminary NO GROWTH OBTAINED AFTER 48 HOURS, INCUBATION TO CONTINUE FOR 3 DAYS. 03/25/19 18:30 Blood - Peripheral Venous Blood Culture - Preliminary NO GROWTH OBTAINED AFTER 48 HOURS, INCUBATION TO CONTINUE FOR 3 DAYS. 03/21/19 18:15 Blood - Central Line Blood Culture - Final NO GROWTH AFTER 5 DAYS INCUBATION 03/21/19 13:25 Blood - Central Line Blood Culture - Final NO GROWTH AFTER 5 DAYS INCUBATION 03/23/19 19:00 Sputum - Endotrachea Suction/Ventilator Gram Stain - Final 03/23/19 19:00 Sputum - Endotrachea Suction/Ventilator Sputum Culture - Final Yeast Like Organism 03/23/19 19:00 Urine - Urine Lott Urine Culture - Final NO GROWTH OBTAINED 03/12/19 19:30 Peritoneal Fluid Gram Stain - Final 03/12/19 19:30 Peritoneal Fluid Body Fluid Culture - Final Klebsiella Pneumoniae - Esbl Enterococcus Faecalis 03/12/19 19:30 Peritoneal Fluid Anaerobic Culture - Final NO ANAEROBES WERE ISOLATED 03/14/19 23:00 Stool Clostridioides difficile Antigen - Final 03/14/19 23:00 Stool Clostridioides difficile Toxin Assay - Final 03/10/19 08:30 Blood - Arterial Blood Culture - Final NO GROWTH AFTER 5 DAYS INCUBATION 03/10/19 08:00 Blood - Arterial Blood Culture - Final NO GROWTH AFTER 5 DAYS INCUBATION 03/09/19 17:00 Urine - Urine Clean Catch Urine Culture - Final Vr Ec Faecium - ....Imaging Chest X-ray: Report Reviewed Problem List - Problems (1) Diabetes Code(s): E11.9 - TYPE 2 DIABETES MELLITUS WITHOUT COMPLICATIONS (2) HLD (hyperlipidemia) Code(s): E78.5 - HYPERLIPIDEMIA, UNSPECIFIED (3) HTN (hypertension) Code(s): I10 - ESSENTIAL (PRIMARY) HYPERTENSION (4) Crohn's disease Code(s): K50.90 - CROHN'S DISEASE, UNSPECIFIED, WITHOUT COMPLICATIONS Qualifiers: Gastrointestinal tract location: small intestine Digestive disease complication type: with rectal bleeding Qualified Code(s): K50.011 - Crohn's disease of small intestine with rectal bleeding (5) Cerebrovascular accident (CVA) Code(s): I63.9 - CEREBRAL INFARCTION, UNSPECIFIED Qualifiers: CVA mechanism: unspecified Qualified Code(s): I63.9 - Cerebral infarction, unspecified (6) Diabetes mellitus, insulin dependent (IDDM), uncontrolled Code(s): E10.65 - TYPE 1 DIABETES MELLITUS WITH HYPERGLYCEMIA Assessment/Plan 48 y.o. female with PMH of uncontrolled IDDM and DKA, Crohn's disease on prednisone, CVA, PE, HTN, HLD presenting with abdominal pain Acute Respiratory failure on MV/sedation s/p cardiopulmonary arrest Sepsis Fever SB perforation s/p Ex-lap/RAYSHAWN/partial SB and omental resection with anastomosis/ washout Peritonitis : klebsiella/Enterococcus isolated C diff colitis Crohn's disease IDDM Hx of multiple DKA Hx of CVA Hx of PE HTN HLD -- Pt remains intubated and sedated, off pressors -- Persistent fevers: all latest blood cultures neg, sputum cx without pathogen /latest CXR without infiltrates. Possibly central fevers. -- continue Meropenem, Daptomycin, Vancomycin po -- repeat cultures ordered -- consider repeat abd/pelvis to r/o developing abscess -- continue monitor temps -- rest of care per ICU Pt remains critically ill cc time: 40
[2019-03-28] MEDS ORDERED: DEXTROSE 4 GM TAB.CHEW PO ONE (21:53)
[2019-03-28] MEDS: DAPTOMYCIN 400 MG in SODIUM CHLORIDE 50 ML IVPB SCH (23:02)
[2019-03-28] MEDS ORDERED: DEXTROSE 4 GM TAB.CHEW PO PRN (23:06)
[2019-03-29] MEDS: INSULIN SLIDING SCALE (NOVOLOG) 1 VIAL SQ SCH ×6 (01:39→22:01)
[2019-03-29] MEDS: PROPOFOL 1,000,000 MCG/100 ML VIAL IVPB SCH ×3 (02:26→19:31)
[2019-03-29] MEDS ORDERED: fentaNYL CITRATE 250 MCG/5 ML VIAL ONE ×3 (03:32→19:45)
[2019-03-29] MEDS: FENTANYL INJECTION 500 MCG in DEXTROSE 5%-WATER - 90 ML IVPB SCH ×4 (03:37→22:08)
[2019-03-29] MEDS: VANCOMYCIN 250 MG/5 ML ORAL SOLUTION PO SCH ×3 (05:08→18:59)
[2019-03-29] MEDS: FUROSEMIDE 40 MG/4 ML INJECTABLE VIAL IVPUSH SCH (05:08)
[2019-03-29 07:32] LABS: ALBUMIN 1.5 g/dl (3.4-5.0); BILIRUBIN,TOTAL 0.2 mg/dL (0.2-1); BLOOD UREA NITROGEN 16.3 mg/dL (7-18); CALCIUM 7.4 mg/dL (8.5-10.1); CREATININE 0.4 mg/dL (0.55-1.3); MAGNESIUM 2.1 mg/dL (1.8-2.4); PHOSPHOROUS 1.9 mg/dL (2.5-4.9); POTASSIUM 3.9 mmol/L (3.5-5.1); TOT PROT 5.2 g/dl (6.4-8.2)
[2019-03-29 07:41] LABS: HEMATOCRIT 25.6 % (32.4-45.2); HEMOGLOBIN 8.5 GM/dL (10.7-15.3); MCH 27.8 pg (25.7-33.7); MCHC 33.4 g/dl (32.0-36.0); MEAN CELL VOLUME 83.2 fl (80-96); MEAN PLT VOLUME 7.6 fl (7.5-11.1); PLATELET COUNT 511 K/MM3 (134-434); RBC 3.08 M/mm3 (3.60-5.2); RDW 23.7 % (11.6-15.6); WHITE BLOOD COUNT 8.4 K/mm3 (4.0-10.0)
[2019-03-29] MEDS ORDERED: ACETAMINOPHEN 1000 MG/100 ML VIAL (NON FORMULARY) IVPB PRN (07:50)
[2019-03-29] MEDS ORDERED: ACETAMINOPHEN 1000 MG/100 ML VIAL (NON FORMULARY) IVPB ONE (08:17)
[2019-03-29] MEDS ORDERED: POTASSIUM CHLORIDE ORAL LIQUID 20 MEQ/15 ML PO ONE (09:36)
[2019-03-29] MEDS ORDERED: NAPH,MB-DB/K PH,MBDB POWDER PACKET PO ONE ×2 (09:36→14:00)
[2019-03-29] MEDS: ENOXAPARIN NA (PORCINE) 60 MG/0.6 ML DISP.SYRIN SQ SCH (09:37)
[2019-03-29] MEDS: AMINO ACIDS/PROTEIN HYDROLYS 30 ML LIQUID.PKT PO SCH (09:38)
[2019-03-29] MEDS: PANTOPRAZOLE SODIUM 40 MG VIAL IVPUSH SCH (09:38)
[2019-03-29] MEDS ORDERED: PT OWN MED DRAWER 7, Y5N ONE (10:08)
[2019-03-29] MEDS: CHLORHEXIDINE GLUCONATE 0.12% 15ML CUP MM SCH ×2 (10:27→22:01)
[2019-03-29] MEDS ORDERED: INSULIN (NOVOLOG) ASPART 100 UNITS/ML 10ML VIAL SQ ONE (10:58)
[2019-03-29] MEDS ORDERED: FUROSEMIDE 40 MG/4 ML INJECTABLE VIAL IVPUSH ONE (10:59)
--- NOTE | 2019-03-29 11:10 | PN ---
Teaching Attending Note Name of Resident: Howie Chavis ATTENDING PHYSICIAN STATEMENT I saw and evaluated the patient. I reviewed the resident's note and discussed the case with the resident. I agree with the resident's findings and plan as documented. SUBJECTIVE: Pt seen and examined in the ICU. Remains intubated, sedated but tachypneic. Fevers persist. OBJECTIVE: Vital Signs Period Temp Pulse Resp BP Sys/Rapp Pulse Ox Last 24 Hr 100.8 F-102.4 F 93-127 18-28 91-136/59-81 100 Gen: intubated, sedated, tachypneic Heart: RRR Lung: decreased breath sounds at the bases Abd: soft, nontender Ext: + edema CBC, BMP 03/29/19 06:00 03/29/19 06:00 Active Medications Amino Acids (Prosource No Carb Liquid Pkt) 30 ml PO DAILY [facility] Last Admin: 03/29/19 09:38 Dose: 30 ml Chlorhexidine Gluconate (Peridex -) 15 ml MM BID [facility] Last Admin: 03/29/19 10:27 Dose: 15 ml Dextrose (Glucose Tablet -) 4 gm PO PRN PRN PRN Reason: HYPOGLYCEMIA Enoxaparin Sodium (Lovenox -) 110 mg SQ DAILY [facility] Last Admin: 03/29/19 09:37 Dose: 110 mg Furosemide (Lasix Injection -) 40 mg IVPUSH BID@0600,1400 [facility] Last Admin: 03/29/19 05:08 Dose: 40 mg Fentanyl 500 mcg/ Dextrose 100 mls @ 10 mls/hr IVPB TITR [facility]; Protocol Last Admin: 03/29/19 10:26 Dose: 100 mcg/hr, 20 mls/hr Propofol (Diprivan -) 1,000,000 mcg in 100 mls @ 4.041 mls/hr IVPB TITR [facility]; Protocol Last Admin: 03/29/19 06:50 Dose: 40 mcg/kg/min, 16.166 mls/hr Dexmedetomidine HCl 400 mcg/ (Sodium Chloride) 100 mls @ 3.36 mls/hr IVPB TITR [facility] Last Admin: 03/28/19 21:44 Dose: 0.85 mcg/kg/hr, 14.31 mls/hr Daptomycin 400 mg/ Sodium (Chloride) 50 mls @ 50 mls/hr IVPB DAILY@2300 [facility]; Protocol Last Admin: 03/28/19 23:02 Dose: 50 mls/hr Insulin Aspart (Novolog Vial Sliding Scale -) 1 vial SQ Q4H [facility]; Protocol Last Admin: 03/29/19 05:14 Dose: Not Given Ondansetron HCl (Zofran Injection) 4 mg IVPUSH Q6H PRN PRN Reason: NAUSEA AND/OR VOMITING Last Admin: 03/14/19 05:07 Dose: 4 mg Pantoprazole Sodium (Protonix Iv) 40 mg IVPUSH DAILY [facility] Last Admin: 03/29/19 09:38 Dose: 40 mg Potassium Phos/Sodium Phos (Phos-Nak Packet -) 1 packet PO ONCE ONE Stop: 03/29/19 14:01 Vancomycin HCl (Vancomycin Oral Solution) 125 mg PO Q6HPO [facility] Last Admin: 03/29/19 05:08 Dose: 125 mg ASSESSMENT AND PLAN: s/p Cardiopulmonary Arrest r/o Anoxic Brain Injury Acute Hypoxic Respiratory Failure Perforated Small Bowel s/p ex-lap/RAYSHAWN/segmental SB resection Crohn's Disease Peritonitis +C diff Colitis Septic Shock Lactic Acidosis Volume Overload h/o PE HTN DM Hyperlipidemia Anemia Thrombocytopenia h/o CVA - continue antibiotics per ID - f/u cultures - change central line - lasix today - monitor urine output, creatinine - off pressors, maintain MAP > 65 - continue anticoagulation - sedate for vent synchrony - daily sedation vacations to assess mental status - spontaneous breathing trials as tolerated when mental status improved - enteral feeds - DVT/GI prophylaxis - continue ICU monitoring critical care time spent in reviewing chart, evaluating patient and formulating plan 35 min
[2019-03-29] MEDS ORDERED: MIDAZOLAM HCL 2 MG/2 ML SINGLE DOSE VIAL ONE ×2 (12:10→22:26)
--- NOTE | 2019-03-29 13:28 | PN ---
Physical Exam: SUBJECTIVE: Patient seen and examined OBJECTIVE: Vital Signs Period Temp Pulse Resp BP Sys/Rapp Pulse Ox Last 24 Hr 101.2 F-102.6 F 93-133 18-30 91-136/59-81 100 GENERAL: The patient is awake, alert, and fully oriented, in no acute distress. HEAD: Normal with no signs of trauma. EYES: PERRL, extraocular movements intact, sclera anicteric, conjunctiva clear. No ptosis. ENT: Ears normal, nares patent, oropharynx clear without exudates, moist mucous membranes. NECK: Trachea midline, full range of motion, supple. LUNGS: Breath sounds equal, clear to auscultation bilaterally, no wheezes, no crackles, no accessory muscle use. HEART: Regular rate and rhythm, S1, S2 without murmur, rub or gallop. ABDOMEN: Soft, nontender, nondistended, normoactive bowel sounds, no guarding, no rebound, no hepatosplenomegaly, no masses. EXTREMITIES: 2+ pulses, warm, well-perfused, no edema. NEUROLOGICAL: Cranial nerves II through XII grossly intact. Normal speech, gait not observed. PSYCH: Normal mood, normal affect. SKIN: Warm, dry, normal turgor, no rashes or lesions noted Laboratory Results - last 24 hr 03/28/19 03/28/19 03/28/19 14:56 14:58 18:18 WBC RBC Hgb Hct MCV MCH MCHC RDW Plt Count MPV Sodium Potassium Chloride Carbon Dioxide Anion Gap BUN Creatinine Est GFR (CKD-EPI)AfAm Est GFR (CKD-EPI)NonAf POC Glucometer 437 401 206 Random Glucose Calcium Phosphorus Magnesium Total Bilirubin AST ALT Alkaline Phosphatase Total Protein Albumin 03/28/19 03/28/19 03/29/19 21:40 23:04 01:34 WBC RBC Hgb Hct MCV MCH MCHC RDW Plt Count MPV Sodium Potassium Chloride Carbon Dioxide Anion Gap BUN Creatinine Est GFR (CKD-EPI)AfAm Est GFR (CKD-EPI)NonAf POC Glucometer 76 117 325 Random Glucose Calcium Phosphorus Magnesium Total Bilirubin AST ALT Alkaline Phosphatase Total Protein Albumin 03/29/19 03/29/19 03/29/19 05:08 06:00 06:00 WBC 8.4 RBC 3.08 L Hgb 8.5 L Hct 25.6 L MCV 83.2 MCH 27.8 MCHC 33.4 RDW 23.7 H Plt Count 511 H D MPV 7.6 Sodium 140 Potassium 3.9 Chloride 99 Carbon Dioxide 35 H Anion Gap 6 L BUN 16.3 Creatinine 0.4 L Est GFR (CKD-EPI)AfAm 141.75 Est GFR (CKD-EPI)NonAf 122.30 POC Glucometer 150 Random Glucose 264 H Calcium 7.4 L Phosphorus 1.9 L Magnesium 2.1 Total Bilirubin 0.2 AST 25 ALT 12 L Alkaline Phosphatase 156 H Total Protein 5.2 L Albumin 1.5 L 03/29/19 03/29/19 10:32 10:34 WBC RBC Hgb Hct MCV MCH MCHC RDW Plt Count MPV Sodium Potassium Chloride Carbon Dioxide Anion Gap BUN Creatinine Est GFR (CKD-EPI)AfAm Est GFR (CKD-EPI)NonAf POC Glucometer 510 551 Random Glucose Calcium Phosphorus Magnesium Total Bilirubin AST ALT Alkaline Phosphatase Total Protein Albumin Active Medications Generic Name Dose Route Start Last Admin Trade Name Freq PRN Reason Stop Dose Admin Amino Acids 30 ml 03/26/19 15:30 03/29/19 09:38 Prosource No Carb Liquid Pkt PO 30 ml DAILY [facility] Administration Chlorhexidine Gluconate 15 ml 03/29/19 10:00 03/29/19 10:27 Peridex - MM 15 ml BID [facility] Administration Dextrose 4 gm 03/28/19 23:06 Glucose Tablet - PO PRN PRN HYPOGLYCEMIA Enoxaparin Sodium 110 mg 03/26/19 13:30 03/29/19 09:37 Lovenox - SQ 110 mg DAILY [facility] Administration Furosemide 40 mg 03/27/19 14:00 03/29/19 05:08 Lasix Injection - IVPUSH 40 mg BID@0600,1400 [facility] Administration Fentanyl 500 mcg/ Dextrose 100 mls @ 10 mls/hr 03/20/19 09:30 03/29/19 10:26 IVPB 100 mcg/hr TITR [facility] 20 mls/hr Administration Protocol 50 MCG/HR Propofol 1,000,000 mcg in 100 mls @ 4.041 mls/hr 03/24/19 00:15 03/29/19 06: 50 Diprivan - IVPB 40 mcg/kg/min TITR [facility] 16.166 mls/hr Administration Protocol 10 MCG/KG/MIN Dexmedetomidine HCl 400 mcg/ 100 mls @ 3.36 mls/hr 03/24/19 12:45 03/28/19 21 :44 Sodium Chloride IVPB 0.85 mcg/kg/hr TITR [facility] 14.31 mls/hr Administration 0.2 MCG/KG/HR Daptomycin 400 mg/ Sodium 50 mls @ 50 mls/hr 03/27/19 23:00 03/28/19 23:02 Chloride IVPB 50 mls/hr DAILY@2300 [facility] Administration Protocol Insulin Aspart 1 vial 03/26/19 02:15 03/29/19 11:00 Novolog Vial Sliding Scale - SQ 15 units Q4H [facility] Administration Protocol Ondansetron HCl 4 mg 03/11/19 20:31 03/14/19 05:07 Zofran Injection IVPUSH 4 mg Q6H PRN Administration NAUSEA AND/OR VOMITING Pantoprazole Sodium 40 mg 03/20/19 10:00 03/29/19 09:38 Protonix Iv IVPUSH 40 mg DAILY [facility] Administration Potassium Phos/Sodium Phos 1 packet 03/29/19 14:00 Phos-Nak Packet - PO 03/29/19 14:01 ONCE ONE Vancomycin HCl 125 mg 03/15/19 18:00 03/29/19 05:08 Vancomycin Oral Solution PO 125 mg Q6HPO [facility] Administration ASSESSMENT/PLAN: This is a 48F PMH IDDM, PE on xarelto, frequent DKA, HTN, HLD, CVA w/ left sided weakness, recent hospitalization at [facility] September 2018 admitted to ICU for SBO. Developed pneumoperitoneum s/p ex-lap. POD #14 Line- rt IJV line in place, replaced subclavian. Neuro - sedated - intubated - unable to wean fully off sedation, pt toleration slightly improved though, will continue to try spontaneous breathing trial - Tylenol for pain/fever ctrl, spiking fever 102 temp - dilaudid 1 mg q4h PRN for pain control CV - hx of transient a-fib with RVR - sinus tachy 100, ekg ordered to assess rythym - No longer hypotensive - Maintain MAP >65 - off pressors - central line in place, cxr to assess. - continue monitoring urine output Respiratory - Patient remains intubated - Lasix IV 40 one dose given today - CXR showing some increased congestion - monitor resp status - spontaneous breathing trial as tolerated. GI - Crohn's flair likely, pneumoperitoneum s/p ex-lap - GI recs appreciated continuing w/ C diff management - confirmed with surgery regarding CT abdomen and pelvis with contrast via NG tube and IV contrast to assess for a fluid collection/other cause of infection. - VAC dressing change supposed to have been yesterday but was not done. - Antibiotics per ID - continue pivot to 50cc/hr ID-> C diff - c/w vanco, daptomycin, d/c sylvester and linezolid. - repeating cultures to assess if new source of infn considering spike in fever. - may need to rpt CT abd pelvis to r/o abscess as new source of infn if cultures remain negative. Endocrine - d/c levemir - novolog SS - one dose of 15units novolog given for hyperglycemia. FEN - Lytes in AM, replete PRN - Monitor I/Os - Monitor UrO, Cr PPx: Lovenox 110, SCDs Dispo: continue ICU care . Visit type - Emergency Visit Emergency Visit: Yes ED Registration Date: 03/09/19 Care time: The patient presented to the Emergency Department on the above date and was hospitalized for further evaluation of their emergent condition. - New Patient This patient is new to me today: No - Critical Care Critical Care patient: Yes Total Critical Care Time (in minutes): 40 Critical Care Statement: The care of this patient involved high complexity decision making to prevent further life threatening deterioration of the patient 's condition and/or to evaluate & treat vital organ system(s) failure or risk of failure. - Discharge Referral Referred to [facility] Med P.C.: No ATTENDING PHYSICIAN STATEMENT I saw and evaluated the patient. I reviewed the resident's note and discussed the case with the resident. I agree with the resident's findings and plan as documented. SUBJECTIVE: OBJECTIVE: ASSESSMENT AND PLAN:
--- NOTE | 2019-03-29 13:47 | PN ---
Progress Note, Physician History of Present Illness: continues to be itubated still spiking fevers - Current Medication List Current Medications: Active Medications Amino Acids (Prosource No Carb Liquid Pkt) 30 ml PO DAILY [facility] Last Admin: 03/29/19 09:38 Dose: 30 ml Chlorhexidine Gluconate (Peridex -) 15 ml MM BID [facility] Last Admin: 03/29/19 10:27 Dose: 15 ml Dextrose (Glucose Tablet -) 4 gm PO PRN PRN PRN Reason: HYPOGLYCEMIA Enoxaparin Sodium (Lovenox -) 110 mg SQ DAILY [facility] Last Admin: 03/29/19 09:37 Dose: 110 mg Furosemide (Lasix Injection -) 40 mg IVPUSH BID@0600,1400 [facility] Last Admin: 03/29/19 05:08 Dose: 40 mg Fentanyl 500 mcg/ Dextrose 100 mls @ 10 mls/hr IVPB TITR [facility]; Protocol Last Admin: 03/29/19 10:26 Dose: 100 mcg/hr, 20 mls/hr Propofol (Diprivan -) 1,000,000 mcg in 100 mls @ 4.041 mls/hr IVPB TITR [facility]; Protocol Last Admin: 03/29/19 06:50 Dose: 40 mcg/kg/min, 16.166 mls/hr Dexmedetomidine HCl 400 mcg/ (Sodium Chloride) 100 mls @ 3.36 mls/hr IVPB TITR [facility] Last Admin: 03/28/19 21:44 Dose: 0.85 mcg/kg/hr, 14.31 mls/hr Daptomycin 400 mg/ Sodium (Chloride) 50 mls @ 50 mls/hr IVPB DAILY@2300 [facility]; Protocol Last Admin: 03/28/19 23:02 Dose: 50 mls/hr Insulin Aspart (Novolog Vial Sliding Scale -) 1 vial SQ Q4H [facility]; Protocol Last Admin: 03/29/19 11:00 Dose: 15 units Ondansetron HCl (Zofran Injection) 4 mg IVPUSH Q6H PRN PRN Reason: NAUSEA AND/OR VOMITING Last Admin: 03/14/19 05:07 Dose: 4 mg Pantoprazole Sodium (Protonix Iv) 40 mg IVPUSH DAILY [facility] Last Admin: 03/29/19 09:38 Dose: 40 mg Potassium Phos/Sodium Phos (Phos-Nak Packet -) 1 packet PO ONCE ONE Stop: 03/29/19 14:01 Vancomycin HCl (Vancomycin Oral Solution) 125 mg PO Q6HPO [facility] Last Admin: 03/29/19 05:08 Dose: 125 mg - Objective Vital Signs: Vital Signs Temperature 102.1 F H 03/29/19 12:00 Pulse Rate 133 H 03/29/19 12:00 Respiratory Rate 30 H 03/29/19 12:00 Blood Pressure 128/78 03/29/19 12:00 O2 Sat by Pulse Oximetry (%) 100 03/28/19 19:02 Constitutional: Yes: Other Cardiovascular: Yes: Regular Rate and Rhythm, Tachycardia Respiratory: Yes: Intubated, Mechanically Ventilated Gastrointestinal: Yes: Other Musculoskeletal: Yes: WNL Extremities: Yes: WNL Edema: LLE: 1+, RLE: 1+ Neurological: Yes: Other Psychiatric: Yes: Other Labs: CBC, BMP 03/29/19 06:00 03/29/19 06:00 INR, PTT INR 0.95 (0.83-1.09) 03/26/19 06:00 Fibrinogen 359.0 mg/dL (238-498) 03/19/19 23:15 Assessment/Plan blem List - Problems (1) Diabetes Code(s): E11.9 - TYPE 2 DIABETES MELLITUS WITHOUT COMPLICATIONS (2) HLD (hyperlipidemia) Code(s): E78.5 - HYPERLIPIDEMIA, UNSPECIFIED (3) HTN (hypertension) Code(s): I10 - ESSENTIAL (PRIMARY) HYPERTENSION (4) Crohn's disease Code(s): K50.90 - CROHN'S DISEASE, UNSPECIFIED, WITHOUT COMPLICATIONS Qualifiers: Gastrointestinal tract location: small intestine Digestive disease complication type: with rectal bleeding Qualified Code(s): K50.011 - Crohn's disease of small intestine with rectal bleeding (5) Cerebrovascular accident (CVA) Code(s): I63.9 - CEREBRAL INFARCTION, UNSPECIFIED Qualifiers: CVA mechanism: unspecified Qualified Code(s): I63.9 - Cerebral infarction, unspecified (6) Diabetes mellitus, insulin dependent (IDDM), uncontrolled Code(s): E10.65 - TYPE 1 DIABETES MELLITUS WITH HYPERGLYCEMIA Assessment/Plan 48 y.o. female with PMH of uncontrolled IDDM and DKA, Crohn's disease on prednisone, CVA, PE, HTN, HLD presenting with abdominal pain Acute Respiratory failure on MV/sedation s/p cardiopulmonary arrest Sepsis Fever SB perforation s/p Ex-lap/RAYSHAWN/partial SB and omental resection with anastomosis/ washout Peritonitis : klebsiella/Enterococcus isolated C diff colitis Crohn's disease IDDM Hx of multiple DKA Hx of CVA Hx of PE HTN HLD plan continue abx ventilator nutrition close watch rest as per icu trend wbc prognosis guarded cc 40 min patient continues to spike fever,line has been changed i think we should look into the abdomen again
[2019-03-29] MEDS: DEXMEDETOMIDINE HCL 400 MCG in SODIUM CHLORIDE 96 ML IVPB SCH (14:27)
[2019-03-29] MEDS ORDERED: MIDAZOLAM HCL 2 MG/2 ML SINGLE DOSE VIAL IVPUSH ONE ×2 (16:17→22:22)
[2019-03-29] MEDS: ACETAMINOPHEN 1000 MG/100 ML VIAL (NON FORMULARY) IVPB PRN ×2 (16:34→22:29)
--- NOTE | 2019-03-29 18:43 | PN ---
Progress Note, Physician Chief Complaint: Abdominal Pain History of Present Illness: 48yo female PMH HTN, CVA (left sided hemiparesis), HLD, IDDM, DKA resulting in multiple admissions, dysphagia, gastroparesis, esophageal stricture (EGD 02/14), c/diff (10/2018), SBO September 2018 (s/p SB resection at [facility] as per pt report) presented to [facility] ED on the afternoon of 12/21 with complaints of N/V/D/ abd pain intermittently for years. She has had persistent pain but has had improved hemodynamics after IVF resuscitation. - Current Medication List Current Medications: Active Medications Acetaminophen (Ofirmev Injection -) 1,000 mg IVPB Q6H PRN PRN Reason: FEVER Last Admin: 03/29/19 16:34 Dose: 1,000 mg Amino Acids (Prosource No Carb Liquid Pkt) 30 ml PO DAILY [facility] Last Admin: 03/29/19 09:38 Dose: 30 ml Chlorhexidine Gluconate (Peridex -) 15 ml MM BID [facility] Last Admin: 03/29/19 10:27 Dose: 15 ml Dextrose (Glucose Tablet -) 4 gm PO PRN PRN PRN Reason: HYPOGLYCEMIA Enoxaparin Sodium (Lovenox -) 110 mg SQ DAILY [facility] Last Admin: 03/29/19 09:37 Dose: 110 mg Furosemide (Lasix Injection -) 40 mg IVPUSH BID@0600,1400 [facility] Last Admin: 03/29/19 05:08 Dose: 40 mg Fentanyl 500 mcg/ Dextrose 100 mls @ 10 mls/hr IVPB TITR [facility]; Protocol Last Admin: 03/29/19 16:35 Dose: Not Given Propofol (Diprivan -) 1,000,000 mcg in 100 mls @ 4.041 mls/hr IVPB TITR [facility]; Protocol Last Admin: 03/29/19 06:50 Dose: 40 mcg/kg/min, 16.166 mls/hr Dexmedetomidine HCl 400 mcg/ (Sodium Chloride) 100 mls @ 3.36 mls/hr IVPB TITR [facility] Last Admin: 03/29/19 14:27 Dose: 0.85 mcg/kg/hr, 14.31 mls/hr Daptomycin 400 mg/ Sodium (Chloride) 50 mls @ 50 mls/hr IVPB DAILY@2300 [facility]; Protocol Last Admin: 03/28/19 23:02 Dose: 50 mls/hr Insulin Aspart (Novolog Vial Sliding Scale -) 1 vial SQ Q4H [facility]; Protocol Last Admin: 03/29/19 14:23 Dose: 2 units Ondansetron HCl (Zofran Injection) 4 mg IVPUSH Q6H PRN PRN Reason: NAUSEA AND/OR VOMITING Last Admin: 03/14/19 05:07 Dose: 4 mg Pantoprazole Sodium (Protonix Iv) 40 mg IVPUSH DAILY [facility] Last Admin: 03/29/19 09:38 Dose: 40 mg Vancomycin HCl (Vancomycin Oral Solution) 125 mg PO Q6HPO [facility] Last Admin: 03/29/19 14:01 Dose: 125 mg - Objective Vital Signs: Vital Signs Temperature 99.7 F H 03/29/19 18:00 Pulse Rate 94 H 03/29/19 18:00 Respiratory Rate 19 03/29/19 18:00 Blood Pressure 89/53 L 03/29/19 18:00 O2 Sat by Pulse Oximetry (%) 100 03/28/19 19:02 Vital Signs Period Temp Pulse Resp BP Sys/Rapp Pulse Ox Last 24 Hr 98.6 F-102.1 F 73-127 16-30 86-138/53-75 97 Intake & Output 03/29/19 03/30/19 03/30/19 23:59 07:59 15:59 Intake Total 2116 627 Output Total 900 1085 300 Balance 1216 -458 -300 Weight 116 lb 8 oz Intake: IV 412 527 DIPRIVAN - 1,000,000 mcg 160 204 In 100 ml @ 10 MCG/KG/MIN 4.041 mls/hr IVPB TITR [facility] Rx#:[id number] Precedex - 400 Mcg In 112 107 Normal Saline - 96 ml @ 0 .2 MCG/KG/HR 3.36 mls/hr IVPB TITR [facility] Rx#: [id number] Sublimaze Injection - 500 140 216 Mcg In D5w - 90 ml @ 50 MCG/HR 10 mls/hr IVPB TITR [facility] Rx#:[id number] IVPB 797 100 Tube Feeding 797 Tube Irrigant 110 Output: Gastric Drainage 185 Drainage 300 Medial Abdomen 300 Urine 900 900 Lott 900 900 Other: Voiding Method Indwelling Catheter Bowel Movement Yes Yes Weight Measurement Method Built in [facility] Constitutional: Yes: No Distress, Calm, Cachectic Eyes: Yes: Conjunctiva Clear, EOM Intact HENT: Yes: Atraumatic, Normocephalic Neck: Yes: Supple, Trachea Midline Cardiovascular: Yes: Regular Rate and Rhythm, S1, S2 Respiratory: Yes: Regular, Mechanically Ventilated, Rales Gastrointestinal: Yes: Normal Bowel Sounds, Soft. No: Tenderness, Tenderness, Epigastrium, Tenderness, Rebound ...Rectal Exam: Yes: Deferred Genitourinary: Yes: Lott Present. No: CVA Tenderness - Left, CVA Tenderness - Right Breast(s): No: Mass, Skin Changes Musculoskeletal: No: Muscle Pain, Muscle Weakness Extremities: Yes: Cool, Cyanosis Edema: Yes Edema: LUE: 2+, RUE: 2+, LLE: 2+, RLE: 2+ Peripheral Pulses WNL: Yes Peripheral Pulses: Left Radial: 2+, Right Radial: 2+, Left Doralis Pedis: 2+, Right Dorsalis Pedis: 2+, Left Femoral: 2+, Right Femoral: 2+ Integumentary: No: Jaundice, Rash Wound/Incision: Yes: Clean/Dry, Well Approximated, Dressing Dry and Intact Neurological: Yes: Alert, Oriented Psychiatric: Yes: Alert, Oriented Labs: CBC, BMP 03/29/19 06:00 03/29/19 06:00 INR, PTT INR 0.95 (0.83-1.09) 03/26/19 06:00 Fibrinogen 359.0 mg/dL (238-498) 03/19/19 23:15 Problem List - Problems (1) Small bowel obstruction Assessment/Plan: 48yo female with MMP including SBO, chronic constipation, Gastroparesis and crohns disease presenting with Abdominal pain. She has several possible explanations for this pain. POD#17 Exp Lap and Segmental resection of small intestinal perforation. Poor saturation and hospital acquired infections ESBL and Cdiff. Intubated overnight. GIB now improved H&H following transfusion. Monitored Setting ICU management VAC dressing due 10/ Antibiotics per ID Transfuse as need crohns management will follow This patient is critically ill. Time spent reviewing chart, examining patient, talking with providers and/or family and documentation is 35 minutes. Problems reviewed: Yes Code(s): K56.609 - UNSP INTESTNL OBST, UNSP TO PARTIAL VERSUS COMPLETE OBST (2) Abdominal pain Problems reviewed: Yes Code(s): R10.9 - UNSPECIFIED ABDOMINAL PAIN Qualifiers: Abdominal location: generalized Qualified Code(s): R10.84 - Generalized abdominal pain (3) Crohn's disease Assessment/Plan: Dr. Robertson, GI gastroenterology Problems reviewed: Yes Code(s): K50.90 - CROHN'S DISEASE, UNSPECIFIED, WITHOUT COMPLICATIONS Qualifiers: Gastrointestinal tract location: small intestine Digestive disease complication type: with rectal bleeding Qualified Code(s): K50.011 - Crohn's disease of small intestine with rectal bleeding (4) DKA (diabetic ketoacidoses) Problems reviewed: No Code(s): E13.10 - OTH DIABETES MELLITUS WITH KETOACIDOSIS WITHOUT COMA Qualifiers: Diabetes mellitus type: type 1 Diabetes mellitus complication detail: without coma Qualified Code(s): E10.10 - Type 1 diabetes mellitus with ketoacidosis without coma (5) Nausea & vomiting Problems reviewed: No Code(s): R11.2 - NAUSEA WITH VOMITING, UNSPECIFIED Qualifiers: Vomiting type: cyclical vomiting Vomiting Intractability: intractable Qualified Code(s): G43.A1 - Cyclical vomiting, intractable (6) Cerebrovascular accident (CVA) Problems reviewed: No Code(s): I63.9 - CEREBRAL INFARCTION, UNSPECIFIED Qualifiers: CVA mechanism: unspecified Qualified Code(s): I63.9 - Cerebral infarction, unspecified
--- NOTE | 2019-03-29 19:19 | PN ---
Progress Note, Physician Chief Complaint: 24HR pt w/ persistent fevers and tachycardia - Current Medication List Current Medications: Active Medications Acetaminophen (Ofirmev Injection -) 1,000 mg IVPB Q6H PRN PRN Reason: FEVER Last Admin: 03/29/19 16:34 Dose: 1,000 mg Amino Acids (Prosource No Carb Liquid Pkt) 30 ml PO DAILY [facility] Last Admin: 03/29/19 09:38 Dose: 30 ml Chlorhexidine Gluconate (Peridex -) 15 ml MM BID [facility] Last Admin: 03/29/19 10:27 Dose: 15 ml Dextrose (Glucose Tablet -) 4 gm PO PRN PRN PRN Reason: HYPOGLYCEMIA Enoxaparin Sodium (Lovenox -) 110 mg SQ DAILY [facility] Last Admin: 03/29/19 09:37 Dose: 110 mg Furosemide (Lasix Injection -) 40 mg IVPUSH BID@0600,1400 [facility] Last Admin: 03/29/19 05:08 Dose: 40 mg Fentanyl 500 mcg/ Dextrose 100 mls @ 10 mls/hr IVPB TITR [facility]; Protocol Last Admin: 03/29/19 16:35 Dose: Not Given Propofol (Diprivan -) 1,000,000 mcg in 100 mls @ 4.041 mls/hr IVPB TITR [facility]; Protocol Last Admin: 03/29/19 06:50 Dose: 40 mcg/kg/min, 16.166 mls/hr Dexmedetomidine HCl 400 mcg/ (Sodium Chloride) 100 mls @ 3.36 mls/hr IVPB TITR [facility] Last Admin: 03/29/19 14:27 Dose: 0.85 mcg/kg/hr, 14.31 mls/hr Daptomycin 400 mg/ Sodium (Chloride) 50 mls @ 50 mls/hr IVPB DAILY@2300 [facility]; Protocol Last Admin: 03/28/19 23:02 Dose: 50 mls/hr Insulin Aspart (Novolog Vial Sliding Scale -) 1 vial SQ Q4H [facility]; Protocol Last Admin: 03/29/19 18:59 Dose: Not Given Ondansetron HCl (Zofran Injection) 4 mg IVPUSH Q6H PRN PRN Reason: NAUSEA AND/OR VOMITING Last Admin: 03/14/19 05:07 Dose: 4 mg Pantoprazole Sodium (Protonix Iv) 40 mg IVPUSH DAILY [facility] Last Admin: 03/29/19 09:38 Dose: 40 mg Vancomycin HCl (Vancomycin Oral Solution) 125 mg PO Q6HPO [facility] Last Admin: 03/29/19 18:59 Dose: 125 mg - Objective Vital Signs: Vital Signs Temperature 99.7 F H 03/29/19 18:00 Pulse Rate 94 H 03/29/19 18:00 Respiratory Rate 19 03/29/19 18:00 Blood Pressure 89/53 L 03/29/19 18:00 O2 Sat by Pulse Oximetry (%) 100 03/28/19 19:02 Constitutional: Yes: Other (sedated, ETT to vent,) Eyes: Yes: PERRL HENT: Yes: Atraumatic, Normocephalic Neck: Yes: Supple Cardiovascular: Yes: Tachycardia Respiratory: Yes: Intubated, Rhonchi, Wheezes Gastrointestinal: Yes: Soft, Hypoactive Bowel Sounds ...Rectal Exam: Yes: Deferred Edema: Yes Edema: LUE: 2+, RUE: 2+, LLE: 2+, RLE: 3+ Peripheral Pulses: Left Radial: 2+, Right Radial: 2+, Left Doralis Pedis: 1+, Right Dorsalis Pedis: 1+ Neurological: Yes: Other (no purposeful movement) Labs: CBC, BMP 03/29/19 06:00 03/29/19 06:00 INR, PTT INR 0.95 (0.83-1.09) 03/26/19 06:00 Fibrinogen 359.0 mg/dL (238-498) 03/19/19 23:15 Impression/Plan Impression/Plan: (1) s/p bowel resection with viscous repair general surgery following wound dihisecence noted at distal portion, vac in place dressing changes as per surgery Code(s): R10.9 - UNSPECIFIED ABDOMINAL PAIN Qualifiers: Abdominal location: generalized Qualified Code(s): R10.84 - Generalized abdominal pain (2) Small bowel obstruction s/p Ex-lap/RAYSHAWN/partial SB and omental resection with anastomosis/washou appreciate surgical and ID consultation c/w abx Code(s): K56.609 - UNSP INTESTNL OBST, UNSP TO PARTIAL VERSUS COMPLETE OBST (3) Cerebrovascular accident (CVA) left sided weakness q shift neuro checks Code(s): I63.9 - CEREBRAL INFARCTION, UNSPECIFIED Qualifiers: CVA mechanism: unspecified Qualified Code(s): I63.9 - Cerebral infarction, unspecified (4) Neuro sedated with precedex/ fentanyl/profolol Code(s): G89.29 - OTHER CHRONIC PAIN Qualifiers: Chronic pain type: chronic pain syndrome Qualified Code(s): G89.4 - Chronic pain syndrome (5) Diabetes BGM q4h insulin SS Code(s): E11.9 - TYPE 2 DIABETES MELLITUS WITHOUT COMPLICATIONS (6) resp insufficiency ABG qshift lasix 40mg BID sedation vacation to SBT meticulous mouth care PPI daily appreciate ICU level of care Code(s): R09.02 - HYPOXEMIA (7) ESBL (extended spectrum beta-lactamase) producing bacteria infection, sepsis d/c TLC due to persistent fever ESBL in wound, UCx + VRE appreciate ID consultation -Dr. Pimentel c/w daptomycin IV APAP PRN fever trend WBC and temp curve Code(s): A49.9 - BACTERIAL INFECTION, UNSPECIFIED; Z16.12 - EXTENDED SPECTRUM BETA LACTAMASE (ESBL) RESISTANCE (8) Clostridium difficile diarrhea vanco 125mg QID c/w rectal tube Code(s): A04.72 - ENTEROCOLITIS D/T CLOSTRIDIUM DIFFICILE, NOT SPCF RECUR (9) septic shock restart levophed infusion if pt becomes hemodynamically unstable maintaining MAP>60 Code(s): I95.9 - HYPOTENSION, UNSPECIFIED (10) Prophylactic measure FEN -Jevity monitor electrolytes IVF DVT -lovenox sq Dispo -requires ICU care full code palliative care following- prognosis critical Code(s): Z29.9 - ENCOUNTER FOR PROPHYLACTIC MEASURES, UNSPECIFIED Visit type - Emergency Visit Emergency Visit: Yes ED Registration Date: 03/09/19 Care time: The patient presented to the Emergency Department on the above date and was hospitalized for further evaluation of their emergent condition. - New Patient This patient is new to me today: Yes Date on this admission: 03/29/19 - Critical Care Critical Care patient: Yes Total Critical Care Time (in minutes): 40 Critical Care Statement: The care of this patient involved high complexity decision making to prevent further life threatening deterioration of the patient 's condition and/or to evaluate & treat vital organ system(s) failure or risk of failure. - Discharge Referral Referred to [facility] Med P.C.: No
[2019-03-29] MEDS: DAPTOMYCIN 400 MG in SODIUM CHLORIDE 50 ML IVPB SCH (23:04)
[2019-03-30] MEDS ORDERED: fentaNYL CITRATE 250 MCG/5 ML VIAL ONE ×3 (01:33→20:16)
[2019-03-30] MEDS: INSULIN SLIDING SCALE (NOVOLOG) 1 VIAL SQ SCH ×6 (02:12→22:18)
[2019-03-30] MEDS: DEXMEDETOMIDINE HCL 400 MCG in SODIUM CHLORIDE 96 ML IVPB SCH ×3 (04:50→15:00)
--- NOTE | 2019-03-30 05:05 | PN ---
Progress Note (short form) - Note Progress Note: Called to pt bedside. When nursing was doing residual check for tube feeds, dark brown fluid was retracted. tube feeds were stopped. 100 cc fluid removed. 5 hours later, an addition 100 cc of dark brown fluid was removed. Vitals stable: 97/58, HR 93 -continue to hold tube feeds -re-consult GI -monitor H/H -Pantoprazole 40 IVP BID
[2019-03-30] MEDS: VANCOMYCIN 250 MG/5 ML ORAL SOLUTION PO SCH ×4 (05:54→23:23)
[2019-03-30] MEDS: PROPOFOL 1,000,000 MCG/100 ML VIAL IVPB SCH (06:03)
[2019-03-30] MEDS ORDERED: DEXTROSE 50%-WATER - 25 GM/50 ML VIAL IVPUSH ONE (06:08)
[2019-03-30 09:26] LABS: ALBUMIN 1.5 g/dl (3.4-5.0); BILIRUBIN,TOTAL 0.2 mg/dL (0.2-1); BLOOD UREA NITROGEN 17.6 mg/dL (7-18); CALCIUM 7.9 mg/dL (8.5-10.1); CREATININE 0.3 mg/dL (0.55-1.3); MAGNESIUM 2.2 mg/dL (1.8-2.4); PHOSPHOROUS 2.5 mg/dL (2.5-4.9); POTASSIUM 3.5 mmol/L (3.5-5.1); TOT PROT 5.2 g/dl (6.4-8.2)
--- NOTE | 2019-03-30 09:28 | PN ---
Physical Exam: SUBJECTIVE: Patient seen and examined OBJECTIVE: Patient is a 48 year old female with a past medical history of DKA. She is s/p post exploratory lap and resection of illial perforation 03/12. Post op course treated for bacteremia and C-Diff. AC was restarted post op (lovenox 110). She became pulseless on 03/19/19 at 0600 and CPR was initiated. She was given epi and intubated to protect airway. tele showed rapid afib. She had a troponin elevation and her ekg w/o st elevations. she was evaluated by cardiology and remains intubated in the ICU. she also has a rectal tube, wound vac, perez cath. low grade fevers noted overnight. Vital Signs Period Temp Pulse Resp BP Sys/Rapp Pulse Ox Last 24 Hr 99.7 F-102.6 F 92-133 16-30 86-136/53-78 GENERAL: intubated, anasarca HEAD: Normal with no signs of trauma. EYES: left eye with a small area of fluid build up inside sclera. ENT: Ears normal, nares patent, oropharynx clear without exudates, moist mucous membranes. NECK: Trachea midline, full range of motion, supple. LUNGS: clear to auscultation bilaterally, intubated HEART: nsr 90s ABDOMEN: wound vac EXTREMITIES: anasacra-improved NEUROLOGICAL: intubated Laboratory Results - last 24 hrs 03/26/19 03/29/19 03/29/19 08:30 10:32 10:34 WBC RBC Hgb Hct MCV MCH MCHC RDW Plt Count MPV Absolute Neuts (auto) Neutrophils % Lymphocytes % Monocytes % Eosinophils % Basophils % Nucleated RBC % Sodium Potassium Chloride Carbon Dioxide Anion Gap BUN Creatinine Est GFR (CKD-EPI)AfAm Est GFR (CKD-EPI)NonAf POC Glucometer 510 551 Random Glucose Calcium Phosphorus Magnesium Total Bilirubin AST ALT Alkaline Phosphatase Total Protein Albumin Blood Type A NEGATIVE Antibody Screen Positive Antibody Identification Anti-d Crossmatch See Detail 03/29/19 03/29/19 03/29/19 14:03 18:00 19:41 WBC RBC Hgb Hct MCV MCH MCHC RDW Plt Count MPV Absolute Neuts (auto) Neutrophils % Lymphocytes % Monocytes % Eosinophils % Basophils % Nucleated RBC % Sodium Potassium Chloride Carbon Dioxide Anion Gap BUN Creatinine Est GFR (CKD-EPI)AfAm Est GFR (CKD-EPI)NonAf POC Glucometer 190 70 175 Random Glucose Calcium Phosphorus Magnesium Total Bilirubin AST ALT Alkaline Phosphatase Total Protein Albumin Blood Type Antibody Screen Antibody Identification Crossmatch 03/29/19 03/30/19 03/30/19 21:54 01:39 06:06 WBC RBC Hgb Hct MCV MCH MCHC RDW Plt Count MPV Absolute Neuts (auto) Neutrophils % Lymphocytes % Monocytes % Eosinophils % Basophils % Nucleated RBC % Sodium Potassium Chloride Carbon Dioxide Anion Gap BUN Creatinine Est GFR (CKD-EPI)AfAm Est GFR (CKD-EPI)NonAf POC Glucometer 387 265 33 Random Glucose Calcium Phosphorus Magnesium Total Bilirubin AST ALT Alkaline Phosphatase Total Protein Albumin Blood Type Antibody Screen Antibody Identification Crossmatch 03/30/19 03/30/19 03/30/19 06:39 08:50 08:50 WBC Gas Engineer RBC Gas Engineer Hgb Gas Engineer Hct Gas Engineer MCV Gas Engineer MCH Gas Engineer MCHC Gas Engineer RDW Gas Engineer Plt Count Gas Engineer MPV Gas Engineer Absolute Neuts (auto) Gas Engineer Neutrophils % Gas Engineer Lymphocytes % Gas Engineer Monocytes % Gas Engineer Eosinophils % Gas Engineer Basophils % Gas Engineer Nucleated RBC % Gas Engineer Sodium 147 H Potassium 3.5 Chloride 105 Carbon Dioxide 34 H Anion Gap 7 L BUN 17.6 Creatinine 0.3 L Est GFR (CKD-EPI)AfAm 155.82 Est GFR (CKD-EPI)NonAf 134.44 POC Glucometer 110 Random Glucose 99 Calcium 7.9 L Phosphorus 2.5 Magnesium 2.2 Total Bilirubin 0.2 AST 21 ALT 11 L Alkaline Phosphatase 137 H Total Protein 5.2 L Albumin 1.5 L Blood Type Antibody Screen Antibody Identification Crossmatch Active Medications Generic Name Dose Route Start Last Admin Trade Name Freq PRN Reason Stop Dose Admin Acetaminophen 1,000 mg 03/29/19 16:17 03/29/19 22:29 Ofirmev Injection - IVPB 1,000 mg Q6H PRN Administration FEVER Amino Acids 30 ml 03/26/19 15:30 03/29/19 09:38 Prosource No Carb Liquid Pkt PO 30 ml DAILY [facility] Administration Chlorhexidine Gluconate 15 ml 03/29/19 10:00 03/29/19 22:01 Peridex - MM 15 ml BID [facility] Administration Dextrose 4 gm 03/28/19 23:06 Glucose Tablet - PO PRN PRN HYPOGLYCEMIA Enoxaparin Sodium 110 mg 03/26/19 13:30 03/29/19 09:37 Lovenox - SQ 110 mg DAILY [facility] Administration Furosemide 40 mg 03/27/19 14:00 03/29/19 05:08 Lasix Injection - IVPUSH 40 mg BID@0600,1400 [facility] Administration Fentanyl 500 mcg/ Dextrose 100 mls @ 10 mls/hr 03/20/19 09:30 03/29/19 22:08 IVPB 100 mcg/hr TITR [facility] 20 mls/hr Administration Protocol 50 MCG/HR Propofol 1,000,000 mcg in 100 mls @ 4.041 mls/hr 03/24/19 00:15 03/30/19 06: 03 Diprivan - IVPB 20 mcg/kg/min TITR [facility] 8.083 mls/hr Administration Protocol 10 MCG/KG/MIN Dexmedetomidine HCl 400 mcg/ 100 mls @ 3.36 mls/hr 03/24/19 12:45 03/30/19 04 :50 Sodium Chloride IVPB 0.72 mcg/kg/hr TITR [facility] 12.12 mls/hr Administration 0.2 MCG/KG/HR Daptomycin 400 mg/ Sodium 50 mls @ 50 mls/hr 03/27/19 23:00 03/29/19 23:04 Chloride IVPB 50 mls/hr DAILY@2300 [facility] Administration Protocol Insulin Aspart 1 vial 03/26/19 02:15 03/30/19 06:21 Novolog Vial Sliding Scale - SQ Not Given Q4H [facility] Protocol Ondansetron HCl 4 mg 03/11/19 20:31 03/14/19 05:07 Zofran Injection IVPUSH 4 mg Q6H PRN Administration NAUSEA AND/OR VOMITING Pantoprazole Sodium 40 mg 03/30/19 10:00 Protonix Iv IVPUSH BID [facility] Vancomycin HCl 125 mg 03/15/19 18:00 03/30/19 05:54 Vancomycin Oral Solution PO Not Given Q6HPO [facility] ASSESSMENT/PLAN: Problem List - Problems (1) Acute respiratory failure Assessment/Plan: remains intubated for respiratory failure on 03/19/19 on precedex ABG qshift lasix 40mg BID sedation vacation to SBT meticulous mouth care PPI daily appreciate ICU level of care Code(s): J96.00 - ACUTE RESPIRATORY FAILURE, UNSP W HYPOXIA OR HYPERCAPNIA (2) Perforated abdominal viscus Assessment/Plan: s/p Ex-lap/RAYSHAWN/partial SB and omental resection with anastomosis/washout on 03/12 general surgery following wound dihisecence noted at distal portion, vac in place dressing changes as per surgery Code(s): KRK0088 - (3) Abdominal pain Assessment/Plan: Patient is/p ex-lap/RAYSHAWN/partial SB and omental resection with anastomosis/ washout appreciate surgical and ID consultation Code(s): R10.9 - UNSPECIFIED ABDOMINAL PAIN Qualifiers: Abdominal location: generalized Qualified Code(s): R10.84 - Generalized abdominal pain (4) C. difficile diarrhea Assessment/Plan: vanco 125mg QID c/w rectal tube Code(s): A04.72 - ENTEROCOLITIS D/T CLOSTRIDIUM DIFFICILE, NOT SPCF RECUR (5) Diabetes Assessment/Plan: monitor bgms. stopped insulin drip. on short acting novolog. Code(s): E11.9 - TYPE 2 DIABETES MELLITUS WITHOUT COMPLICATIONS (6) ESBL (extended spectrum beta-lactamase) producing bacteria infection Assessment/Plan: esbl in wound culture. continue IV antibiotics per ID maintain contact precautions. Code(s): A49.9 - BACTERIAL INFECTION, UNSPECIFIED; Z16.12 - EXTENDED SPECTRUM BETA LACTAMASE (ESBL) RESISTANCE (7) HTN (hypertension) Assessment/Plan: ICU monitoring with frequent checks Code(s): I10 - ESSENTIAL (PRIMARY) HYPERTENSION (8) Left-sided weakness Assessment/Plan: chronic left sided weakness. now with edema of both arms and anasarca Code(s): R53.1 - WEAKNESS (9) Acute Crohn's disease Assessment/Plan: lysis of adhesions, segmental resection of small intestinal perforation with side-side stapled anastomosis, abdominal washout, resection of portion of omentum. GI following. Code(s): K50.90 - CROHN'S DISEASE, UNSPECIFIED, WITHOUT COMPLICATIONS (10) Anemia Assessment/Plan: s/p 2 units of prbc. monitor cbc daily Code(s): D64.9 - ANEMIA, UNSPECIFIED (11) Respiratory failure Code(s): J96.90 - RESPIRATORY FAILURE, UNSP, UNSP W HYPOXIA OR HYPERCAPNIA (12) Prophylactic measure Assessment/Plan: NPO monitor electrolytes tube feeds. pivot DVT on lovenox 110 Dispo requires ICU care full code Code(s): Z29.9 - ENCOUNTER FOR PROPHYLACTIC MEASURES, UNSPECIFIED Visit type - Emergency Visit Emergency Visit: Yes ED Registration Date: 03/09/19 Care time: The patient presented to the Emergency Department on the above date and was hospitalized for further evaluation of their emergent condition. - New Patient This patient is new to me today: No - Critical Care Critical Care patient: Yes Total Critical Care Time (in minutes): 45 Critical Care Statement: The care of this patient involved high complexity decision making to prevent further life threatening deterioration of the patient 's condition and/or to evaluate & treat vital organ system(s) failure or risk of failure.
--- NOTE | 2019-03-30 10:06 | EKG ---
Test Reason : Blood Pressure : / mmHG Vent. Rate : 117 BPM Atrial Rate : 117 BPM P-R Int : 122 ms QRS Dur : 082 ms QT Int : 310 ms P-R-T Axes : 058 079 179 degrees QTc Int : 432 ms SINUS TACHYCARDIA NONSPECIFIC ST AND T WAVE ABNORMALITY ABNORMAL ECG WHEN COMPARED WITH ECG OF 22-MAR-2019 16:31, NO SIGNIFICANT CHANGE WAS FOUND Confirmed by Baljeet Steven MD ([id number]) on 03/30/2019 10:05:55 AM Referred By: Confirmed By:Baljeet Steven MD
[2019-03-30] MEDS: AMINO ACIDS/PROTEIN HYDROLYS 30 ML LIQUID.PKT PO SCH (10:27)
[2019-03-30] MEDS: PANTOPRAZOLE SODIUM 40 MG VIAL IVPUSH SCH ×2 (10:27→21:44)
[2019-03-30] MEDS: CHLORHEXIDINE GLUCONATE 0.12% 15ML CUP MM SCH ×2 (10:27→21:44)
[2019-03-30] MEDS: ENOXAPARIN NA (PORCINE) 60 MG/0.6 ML DISP.SYRIN SQ SCH (10:27)
--- NOTE | 2019-03-30 11:19 | PN ---
Teaching Attending Note Name of Resident: Howie Chavis ATTENDING PHYSICIAN STATEMENT I saw and evaluated the patient. I reviewed the resident's note and discussed the case with the resident. I agree with the resident's findings and plan as documented. SUBJECTIVE: Pt seen and examined in the ICU. Remains intubated, sedated. Tachypneic with accessory muscle use when off sedation. Fevers persist. OBJECTIVE: Vital Signs Period Temp Pulse Resp BP Sys/Rapp Pulse Ox Last 24 Hr 98.6 F-102.1 F 73-133 16-30 86-133/53-78 Intake & Output 03/27/19 03/28/19 03/29/19 03/30/19 23:59 23:59 23:59 23:59 Intake Total 2376 1442 3396 627 Output Total 2250 5950 3500 1085 Balance 126 -4508 -104 -458 Weight 68.674 kg 68.674 kg 55.792 kg 52.844 kg Gen: intubated, sedated, tachypneic Heart: RRR Lung: scattered rhonchi Abd: soft, nontender Ext: + edema CBC, BMP 03/30/19 08:50 03/30/19 08:50 Active Medications Acetaminophen (Ofirmev Injection -) 1,000 mg IVPB Q6H PRN PRN Reason: FEVER Last Admin: 03/29/19 22:29 Dose: 1,000 mg Amino Acids (Prosource No Carb Liquid Pkt) [address] [facility] Last Admin: 03/30/19 10:27 Dose: 30 ml Chlorhexidine Gluconate (Peridex -) [address] [facility] Last Admin: 03/30/19 10:27 Dose: 15 ml Dextrose (Glucose Tablet -) 4 gm PO PRN PRN PRN Reason: HYPOGLYCEMIA Enoxaparin Sodium (Lovenox -) [address] [facility] Last Admin: 03/30/19 10:27 Dose: 110 mg Furosemide (Lasix Injection -) 40 mg IVPUSH BID@0600,1400 [facility] Last Admin: 03/29/19 05:08 Dose: 40 mg Fentanyl 500 mcg/ Dextrose 100 mls @ 10 mls/hr IVPB TITR [facility]; Protocol Last Admin: 03/29/19 22:08 Dose: 100 mcg/hr, 20 mls/hr Propofol (Diprivan -) 1,000,000 mcg in 100 mls @ 4.041 mls/hr IVPB TITR [facility]; Protocol Last Admin: 03/30/19 06:03 Dose: 20 mcg/kg/min, 8.083 mls/hr Dexmedetomidine HCl 400 mcg/ (Sodium Chloride) 100 mls @ 3.36 mls/hr IVPB TITR [facility] Last Admin: 03/30/19 04:50 Dose: 0.72 mcg/kg/hr, 12.12 mls/hr Daptomycin 400 mg/ Sodium (Chloride) 50 mls @ 50 mls/hr IVPB DAILY@2300 [facility]; Protocol Last Admin: 03/29/19 23:04 Dose: 50 mls/hr Insulin Aspart (Novolog Vial Sliding Scale -) [address] [facility]; Protocol Last Admin: 03/30/19 11:07 Dose: 4 units Ondansetron HCl (Zofran Injection) 4 mg IVPUSH Q6H PRN PRN Reason: NAUSEA AND/OR VOMITING Last Admin: 03/14/19 05:07 Dose: 4 mg Pantoprazole Sodium (Protonix Iv) [address] [facility] Last Admin: 03/30/19 10:27 Dose: 40 mg Vancomycin HCl (Vancomycin Oral Solution) [address] [facility] Last Admin: 03/30/19 05:54 Dose: Not Given ASSESSMENT AND PLAN: s/p Cardiopulmonary Arrest r/o Anoxic Brain Injury Acute Hypoxic Respiratory Failure Perforated Small Bowel s/p ex-lap/RAYSHAWN/segmental SB resection Crohn's Disease Peritonitis +C diff Colitis Septic Shock Lactic Acidosis Volume Overload h/o PE HTN DM Hyperlipidemia Anemia Thrombocytopenia h/o CVA - continue antibiotics per ID - f/u cultures - hold lasix today as BP borderline - monitor urine output, creatinine - off pressors, maintain MAP > 65 - continue anticoagulation - sedate for vent synchrony - daily sedation vacations to assess mental status - spontaneous breathing trials as tolerated when mental status improved - enteral feeds - will likely need tracheostomy for failure to wean - DVT/GI prophylaxis - continue ICU monitoring critical care time spent in reviewing chart, evaluating patient and formulating plan 35 min
--- NOTE | 2019-03-30 12:39 | PN ---
Progress Note, Physician - Current Medication List Current Medications: Active Medications Acetaminophen (Ofirmev Injection -) 1,000 mg IVPB Q6H PRN PRN Reason: FEVER Last Admin: 03/29/19 22:29 Dose: 1,000 mg Amino Acids (Prosource No Carb Liquid Pkt) 30 ml PO DAILY [facility] Last Admin: 03/30/19 10:27 Dose: 30 ml Chlorhexidine Gluconate (Peridex -) 15 ml MM BID [facility] Last Admin: 03/30/19 10:27 Dose: 15 ml Dextrose (Glucose Tablet -) 4 gm PO PRN PRN PRN Reason: HYPOGLYCEMIA Enoxaparin Sodium (Lovenox -) 110 mg SQ DAILY [facility] Last Admin: 03/30/19 10:27 Dose: 110 mg Furosemide (Lasix Injection -) 40 mg IVPUSH BID@0600,1400 [facility] Last Admin: 03/29/19 05:08 Dose: 40 mg Fentanyl 500 mcg/ Dextrose 100 mls @ 10 mls/hr IVPB TITR [facility]; Protocol Last Admin: 03/29/19 22:08 Dose: 100 mcg/hr, 20 mls/hr Propofol (Diprivan -) 1,000,000 mcg in 100 mls @ 4.041 mls/hr IVPB TITR [facility]; Protocol Last Admin: 03/30/19 06:03 Dose: 20 mcg/kg/min, 8.083 mls/hr Dexmedetomidine HCl 400 mcg/ (Sodium Chloride) 100 mls @ 3.36 mls/hr IVPB TITR [facility] Last Admin: 03/30/19 04:50 Dose: 0.72 mcg/kg/hr, 12.12 mls/hr Daptomycin 400 mg/ Sodium (Chloride) 50 mls @ 50 mls/hr IVPB DAILY@2300 [facility]; Protocol Last Admin: 03/29/19 23:04 Dose: 50 mls/hr Insulin Aspart (Novolog Vial Sliding Scale -) 1 vial SQ Q4H [facility]; Protocol Last Admin: 03/30/19 11:07 Dose: 4 units Ondansetron HCl (Zofran Injection) 4 mg IVPUSH Q6H PRN PRN Reason: NAUSEA AND/OR VOMITING Last Admin: 03/14/19 05:07 Dose: 4 mg Pantoprazole Sodium (Protonix Iv) 40 mg IVPUSH BID [facility] Last Admin: 03/30/19 10:27 Dose: 40 mg Vancomycin HCl (Vancomycin Oral Solution) 125 mg PO Q6HPO [facility] Last Admin: 03/30/19 05:54 Dose: Not Given - Objective Vital Signs: Vital Signs Temperature 98.6 F 03/30/19 10:00 Pulse Rate 73 03/30/19 10:00 Respiratory Rate 26 H 03/30/19 12:21 Blood Pressure 89/58 L 03/30/19 10:00 O2 Sat by Pulse Oximetry (%) 97 03/30/19 10:35 Labs: CBC, BMP 03/30/19 08:50 03/30/19 08:50 INR, PTT INR 0.95 (0.83-1.09) 03/26/19 06:00 Fibrinogen 359.0 mg/dL (238-498) 03/19/19 23:15
[2019-03-30] MEDS ORDERED: FENTANYL INJECTION 500 MCG in DEXTROSE 5%-WATER - 90 ML IVPB SCH ×2 (13:15→19:00)
[2019-03-30] MEDS: FENTANYL INJECTION 500 MCG in DEXTROSE 5%-WATER - 90 ML IVPB SCH (13:30)
--- NOTE | 2019-03-30 14:23 | PN ---
Progress Note, Physician Chief Complaint: Abdominal Pain History of Present Illness: 48yo female PMH HTN, CVA (left sided hemiparesis), HLD, IDDM, DKA resulting in multiple admissions, dysphagia, gastroparesis, esophageal stricture (EGD 02/14), c/diff (10/2018), SBO September 2018 (s/p SB resection at [facility] as per pt report) presented to [place] ED on the afternoon of 12/21 with complaints of N/V/D/ abd pain intermittently for years. She is clinically improved but can not yet bee weened. Continues to spike high fevers - Current Medication List Current Medications: Active Medications Acetaminophen (Ofirmev Injection -) 1,000 mg IVPB Q6H PRN PRN Reason: FEVER Last Admin: 03/29/19 22:29 Dose: 1,000 mg Amino Acids (Prosource No Carb Liquid Pkt) 30 ml PO DAILY [facility] Last Admin: 03/30/19 10:27 Dose: 30 ml Chlorhexidine Gluconate (Peridex -) 15 ml MM BID [facility] Last Admin: 03/30/19 10:27 Dose: 15 ml Dextrose (Glucose Tablet -) 4 gm PO PRN PRN PRN Reason: HYPOGLYCEMIA Enoxaparin Sodium (Lovenox -) 110 mg SQ DAILY [facility] Last Admin: 03/30/19 10:27 Dose: 110 mg Furosemide (Lasix Injection -) 40 mg IVPUSH BID@0600,1400 [facility] Last Admin: 03/29/19 05:08 Dose: 40 mg Propofol (Diprivan -) 1,000,000 mcg in 100 mls @ 4.041 mls/hr IVPB TITR [facility]; Protocol Last Admin: 03/30/19 06:03 Dose: 20 mcg/kg/min, 8.083 mls/hr Dexmedetomidine HCl 400 mcg/ (Sodium Chloride) 100 mls @ 3.36 mls/hr IVPB TITR [facility] Last Admin: 03/30/19 04:50 Dose: 0.72 mcg/kg/hr, 12.12 mls/hr Daptomycin 400 mg/ Sodium (Chloride) 50 mls @ 50 mls/hr IVPB DAILY@2300 [facility]; Protocol Last Admin: 03/29/19 23:04 Dose: 50 mls/hr Fentanyl 500 mcg/ Dextrose 100 mls @ 0 mls/hr IVPB TITR [facility]; Protocol Insulin Aspart (Novolog Vial Sliding Scale -) 1 vial SQ Q4H [facility]; Protocol Last Admin: 03/30/19 11:07 Dose: 4 units Ondansetron HCl (Zofran Injection) 4 mg IVPUSH Q6H PRN PRN Reason: NAUSEA AND/OR VOMITING Last Admin: 03/14/19 05:07 Dose: 4 mg Pantoprazole Sodium (Protonix Iv) 40 mg IVPUSH BID [facility] Last Admin: 03/30/19 10:27 Dose: 40 mg Vancomycin HCl (Vancomycin Oral Solution) 125 mg PO Q6HPO [facility] Last Admin: 03/30/19 05:54 Dose: Not Given - Objective Vital Signs: Vital Signs Temperature 98.6 F 03/30/19 10:00 Pulse Rate 97 H 03/30/19 12:00 Respiratory Rate 26 H 03/30/19 12:21 Blood Pressure 138/75 03/30/19 12:00 O2 Sat by Pulse Oximetry (%) 97 03/30/19 10:35 Vital Signs Period Temp Pulse Resp BP Sys/Rapp Pulse Ox Last 24 Hr 98.6 F-102.1 F 73-127 16-30 86-138/53-75 97 Intake & Output 03/29/19 03/30/19 03/30/19 23:59 07:59 15:59 Intake Total 2116 627 Output Total 900 1085 300 Balance 1216 -458 -300 Weight 116 lb 8 oz Intake: IV 412 527 DIPRIVAN - 1,000,000 mcg 160 204 In 100 ml @ 10 MCG/KG/MIN 4.041 mls/hr IVPB TITR [facility] Rx#:[id number] Precedex - 400 Mcg In 112 107 Normal Saline - 96 ml @ 0 .2 MCG/KG/HR 3.36 mls/hr IVPB TITR [facility] Rx#: [id number] Sublimaze Injection - 500 140 216 Mcg In D5w - 90 ml @ 50 MCG/HR 10 mls/hr IVPB TITR [facility] Rx#:[id number] IVPB 797 100 Tube Feeding 797 Tube Irrigant 110 Output: Gastric Drainage 185 Drainage 300 Medial Abdomen 300 Urine 900 900 Lott 900 900 Other: Voiding Method Indwelling Catheter Bowel Movement Yes Yes Weight Measurement Method Built in [facility] Constitutional: Yes: No Distress, Calm, Cachectic Eyes: Yes: Conjunctiva Clear, EOM Intact HENT: Yes: Atraumatic, Normocephalic Cardiovascular: Yes: Regular Rate and Rhythm, S1, S2 Respiratory: Yes: Regular, Mechanically Ventilated, Rales Gastrointestinal: Yes: Normal Bowel Sounds, Soft. No: Tenderness, Tenderness, Epigastrium, Tenderness, Rebound ...Rectal Exam: Yes: Other (rectal appliance) Genitourinary: No: CVA Tenderness - Left, CVA Tenderness - Right Musculoskeletal: No: Muscle Pain, Muscle Weakness Extremities: No: Cool, Cyanosis Edema: No Peripheral Pulses WNL: No Integumentary: Yes: Incision. No: Jaundice, Rash Wound/Incision: Yes: Clean/Dry, Dressing Dry and Intact, Dressing Removed, Mikey Removed, Unapproximated Neurological: Yes: Alert, Oriented Psychiatric: Yes: Alert, Oriented Labs: CBC, BMP 03/30/19 08:50 03/30/19 08:50 INR, PTT INR 0.95 (0.83-1.09) 03/26/19 06:00 Fibrinogen 359.0 mg/dL (238-498) 03/19/19 23:15 Problem List - Problems (1) Small bowel obstruction Assessment/Plan: 48yo female with MMP including SBO, chronic constipation, Gastroparesis and crohns disease presenting with Abdominal pain. She has several possible explanations for this pain. POD#18 Exp Lap and Segmental resection of small intestinal perforation. Poor saturation and hospital acquired infections ESBL and Cdiff. Intubated overnight. GIB now improved H&H following transfusion. Monitored Setting ICU management VAC dressing changed , due 04/02 Antibiotics per ID Transfuse as need crohns management will follow This patient is critically ill. Time spent reviewing chart, examining patient, talking with providers and/or family and documentation is 35 minutes. Problems reviewed: Yes Code(s): K56.609 - UNSP INTESTNL OBST, UNSP TO PARTIAL VERSUS COMPLETE OBST (2) Abdominal pain Problems reviewed: No Code(s): R10.9 - UNSPECIFIED ABDOMINAL PAIN Qualifiers: Abdominal location: generalized Qualified Code(s): R10.84 - Generalized abdominal pain (3) Crohn's disease Assessment/Plan: Dr. Robertson, GI gastroenterology Problems reviewed: Yes Code(s): K50.90 - CROHN'S DISEASE, UNSPECIFIED, WITHOUT COMPLICATIONS Qualifiers: Gastrointestinal tract location: small intestine Digestive disease complication type: with rectal bleeding Qualified Code(s): K50.011 - Crohn's disease of small intestine with rectal bleeding (4) DKA (diabetic ketoacidoses) Problems reviewed: No Code(s): E13.10 - OTH DIABETES MELLITUS WITH KETOACIDOSIS WITHOUT COMA Qualifiers: Diabetes mellitus type: type 1 Diabetes mellitus complication detail: without coma Qualified Code(s): E10.10 - Type 1 diabetes mellitus with ketoacidosis without coma (5) Nausea & vomiting Problems reviewed: No Code(s): R11.2 - NAUSEA WITH VOMITING, UNSPECIFIED Qualifiers: Vomiting type: cyclical vomiting Vomiting Intractability: intractable Qualified Code(s): G43.A1 - Cyclical vomiting, intractable (6) Cerebrovascular accident (CVA) Problems reviewed: No Code(s): I63.9 - CEREBRAL INFARCTION, UNSPECIFIED Qualifiers: CVA mechanism: unspecified Qualified Code(s): I63.9 - Cerebral infarction, unspecified
[2019-03-30] MEDS: FUROSEMIDE 40 MG/4 ML INJECTABLE VIAL IVPUSH SCH (14:27)
--- NOTE | 2019-03-30 15:13 | PN ---
Physical Exam: SUBJECTIVE: Patient seen and examined in ICU. Overnight, pt found to have brown colored fluid from NG tube so tube feeds were held, unsure why that is but most likely from contrast used for CT abd pelvis. Pt was febrile refractory to cold blankets, but unknown source of infn at this time given the negative abscess on CT. On rounds attempted to switch her to CPAP and extubate her off sedation, however she became labored and required the use of intercostal retractions, so she failed trial of extubation today. Most likely will need trach to be placed in near future. Family is aware. OBJECTIVE: Vital Signs Period Temp Pulse Resp BP Sys/Rapp Pulse Ox Last 24 Hr 98.6 F-102.1 F 73-127 16-30 86-138/53-75 97 GENERAL: The patient is sedated and intubated NECK: Trachea midline, full range of motion, supple. LUNGS: Breath sounds roncherous worse at bases. HEART: tachycardic and regular rhythm, S1, S2 without murmur, rub or gallop. ABDOMEN: Soft, nontender, nondistended, wound vac in place draining. EXTREMITIES: diffuse anasarca. SKIN: edematous Laboratory Results - last 24 hr Active Medications Generic Name Dose Route Start Last Admin Trade Name Freq PRN Reason Stop Dose Admin Acetaminophen 1,000 mg 03/29/19 16:17 03/29/19 22:29 Ofirmev Injection - IVPB 1,000 mg Q6H PRN Administration FEVER Amino Acids 30 ml 03/26/19 15:30 03/30/19 10:27 Prosource No Carb Liquid Pkt PO 30 ml DAILY [facility] Administration Chlorhexidine Gluconate 15 ml 03/29/19 10:00 03/30/19 10:27 Peridex - MM 15 ml BID [facility] Administration Dextrose 4 gm 03/28/19 23:06 Glucose Tablet - PO PRN PRN HYPOGLYCEMIA Enoxaparin Sodium 110 mg 03/26/19 13:30 03/30/19 10:27 Lovenox - SQ 110 mg DAILY [facility] Administration Furosemide 40 mg 03/27/19 14:00 03/30/19 14:27 Lasix Injection - IVPUSH 40 mg BID@0600,1400 [facility] Administration Propofol 1,000,000 mcg in 100 mls @ 4.041 mls/hr 03/24/19 00:15 03/30/19 06: 03 Diprivan - IVPB 20 mcg/kg/min TITR [facility] 8.083 mls/hr Administration Protocol 10 MCG/KG/MIN Dexmedetomidine HCl 400 mcg/ 100 mls @ 3.36 mls/hr 03/24/19 12:45 03/30/19 04 :50 Sodium Chloride IVPB 0.72 mcg/kg/hr TITR [facility] 12.12 mls/hr Administration 0.2 MCG/KG/HR Daptomycin 400 mg/ Sodium 50 mls @ 50 mls/hr 03/27/19 23:00 03/29/19 23:04 Chloride IVPB 50 mls/hr DAILY@2300 [facility] Administration Protocol Fentanyl 500 mcg/ Dextrose 100 mls @ 0 mls/hr 03/30/19 13:15 IVPB TITR [facility] Protocol As Directed Insulin Aspart 1 vial 03/26/19 02:15 03/30/19 14:34 Novolog Vial Sliding Scale - SQ Not Given Q4H [facility] Protocol Ondansetron HCl 4 mg 03/11/19 20:31 03/14/19 05:07 Zofran Injection IVPUSH 4 mg Q6H PRN Administration NAUSEA AND/OR VOMITING Pantoprazole Sodium 40 mg 03/30/19 10:00 03/30/19 10:27 Protonix Iv IVPUSH 40 mg BID [facility] Administration Vancomycin HCl 125 mg 03/15/19 18:00 03/30/19 12:30 Vancomycin Oral Solution PO 125 mg Q6HPO [facility] Administration ASSESSMENT/PLAN: This is a 48F PMH IDDM, PE on xarelto, frequent DKA, HTN, HLD, CVA w/ left sided weakness, recent hospitalization at [facility] September 2018 admitted to ICU for SBO. Developed pneumoperitoneum s/p ex-lap. POD #15 Line-subclavian line was removed during cleaning accidentaly, no central line is in place at this time. Neuro - sedated - intubated - unable to wean fully off sedation, pt toleration slightly improved though, will continue to try spontaneous breathing trial - Tylenol for pain/fever ctrl, spiking fever 102 temp - dilaudid 1 mg q4h PRN for pain control CV - hx of transient a-fib with RVR - sinus tachy 100, ekg ordered to assess rythym - No longer hypotensive - Maintain MAP >65 - off pressors - central line no longer in place - continue monitoring urine output Respiratory - Patient remains intubated - Lasix IV 40 held today due to hypotension - monitor resp status - spontaneous breathing trial as tolerated. - pt will need trach, discussions ongoing with family. GI - Crohn's flair likely, pneumoperitoneum s/p ex-lap - GI recs appreciated continuing w/ C diff management - confirmed with surgery regarding CT abdomen and pelvis with contrast via NG tube and IV contrast to assess for a fluid collection/other cause of infection. - VAC dressing change supposed to have been yesterday but was not done. - Antibiotics per ID - tube feeds d/c pivot to 50cc/hr - CT abd negative for abscess but showing a subacute or chronic renal infarct, however pt is on 110 Lovenox SQ given hx of PE. - unkown source of infn at this time. ID-> C diff - c/w vanco for 1 week after other abx are d/c, c/w daptomycin - repeating cultures to assess if new source of infn considering spike in fever. - may need to rpt CT abd pelvis to r/o abscess as new source of infn if cultures remain negative. Endocrine - d/c levemir - novolog SS - one dose of 15units novolog given for hyperglycemia. FEN - Lytes in AM, replete PRN - Monitor I/Os - Monitor UrO, Cr PPx: Lovenox 110, SCDs Dispo: continue ICU care Visit type - Emergency Visit Emergency Visit: Yes ED Registration Date: 03/09/19 Care time: The patient presented to the Emergency Department on the above date and was hospitalized for further evaluation of their emergent condition. - New Patient This patient is new to me today: No - Critical Care Critical Care patient: Yes Total Critical Care Time (in minutes): 35 Critical Care Statement: The care of this patient involved high complexity decision making to prevent further life threatening deterioration of the patient 's condition and/or to evaluate & treat vital organ system(s) failure or risk of failure. - Discharge Referral Referred to [facility] Med [facility] No
--- NOTE | 2019-03-30 18:53 | PN.GI ---
GI Progress Note Subjective: Had a CT scan performed last night due to ? 125cc residual coffee ground material from OGT. CT scan revealed persistent right basilar infiltrate, mild diffuse fluid filled colonic distention and question of left renal infarct. 100cc liquid stool in fecal bag during day shift. No melena reported. - Objective Vital Signs: Vital Signs Temperature 100 F H 03/30/19 16:00 Pulse Rate 90 03/30/19 16:00 Respiratory Rate 16 03/30/19 16:31 Blood Pressure 120/68 03/30/19 16:00 O2 Sat by Pulse Oximetry (%) 97 03/30/19 10:35 Eyes: No: Sclera Icterus Cardiovascular: Yes: Tachycardia Respiratory: Yes: Diminished (at bases bilaterally) Gastrointestinal Inspection: Yes: Other (VAC dressing in mid abdomen). No: Distention ...Auscultate: Yes: Normoactive Bowel Sounds ...Palpate: Yes: Soft. No: Tenderness (No grimacing upon palpation) Neurological: Yes: Other (Awake, not following commands) Labs: CBC, BMP 03/30/19 08:50 03/30/19 08:50 INR, PTT INR 0.95 (0.83-1.09) 03/26/19 06:00 Fibrinogen 359.0 mg/dL (238-498) 03/19/19 23:15 Hepatic Panel Total Bilirubin 0.2 mg/dL (0.2-1) 03/30/19 08:50 AST 21 U/L (15-37) 03/30/19 08:50 ALT 11 U/L (13-61) L 03/30/19 08:50 Alkaline Phosphatase 137 U/L (45-117) H 03/30/19 08:50 Albumin 1.5 g/dl (3.4-5.0) L 03/30/19 08:50 Problem List - Problems (1) Small bowel perforation Assessment/Plan: Care per surgery Code(s): K63.1 - PERFORATION OF INTESTINE (NONTRAUMATIC) (2) Clostridium difficile diarrhea Assessment/Plan: Continuing PO Vanco. Would continue for at least 1 week after antibiotics have been discontinued Code(s): A04.72 - ENTEROCOLITIS D/T CLOSTRIDIUM DIFFICILE, NOT SPCF RECUR
[2019-03-30] MEDS ORDERED: PT OWN MED DRAWER 7, Y5N ONE (22:07)
[2019-03-30] MEDS: DAPTOMYCIN 400 MG in SODIUM CHLORIDE 50 ML IVPB SCH (23:23)
[2019-03-31] MEDS ORDERED: fentaNYL CITRATE 250 MCG/5 ML VIAL ONE (02:29)
[2019-03-31] MEDS: INSULIN SLIDING SCALE (NOVOLOG) 1 VIAL SQ SCH ×6 (02:58→23:15)
[2019-03-31] MEDS: ACETAMINOPHEN 1000 MG/100 ML VIAL (NON FORMULARY) IVPB PRN (03:13)
[2019-03-31] MEDS: VANCOMYCIN 250 MG/5 ML ORAL SOLUTION PO SCH ×3 (05:16→17:30)
[2019-03-31 07:05] LABS: PHOSPHOROUS 1.7 mg/dL (2.5-4.9)
[2019-03-31 09:04] LABS: BASO % 1.8 % (0-2.0); EOS % 0.6 % (0-4.5); HEMOGLOBIN 7.1 GM/dL (10.7-15.3); LYMPH % 12.9 % (8-40); MCH 27.4 pg (25.7-33.7); MCHC 32.3 g/dl (32.0-36.0); MEAN PLT VOLUME 7.7 fl (7.5-11.1); MONO % 7.1 % (3.8-10.2); NEUT % 77.6 % (42.8-82.8); PLATELET COUNT 540 K/MM3 (134-434); RBC 2.58 M/mm3 (3.60-5.2); RDW 24.3 % (11.6-15.6); WHITE BLOOD COUNT 7.7 K/mm3 (4.0-10.0)
[2019-03-31 09:10] LABS: ALBUMIN 1.6 g/dl (3.4-5.0); BILIRUBIN,TOTAL 0.3 mg/dL (0.2-1); BLOOD UREA NITROGEN 15.9 mg/dL (7-18); CALCIUM 7.6 mg/dL (8.5-10.1); CREATININE 0.5 mg/dL (0.55-1.3); POTASSIUM 3.1 mmol/L (3.5-5.1)
[2019-03-31] MEDS: CHLORHEXIDINE GLUCONATE 0.12% 15ML CUP MM SCH ×2 (09:30→22:06)
[2019-03-31] MEDS: AMINO ACIDS/PROTEIN HYDROLYS 30 ML LIQUID.PKT PO SCH (09:30)
[2019-03-31] MEDS: ENOXAPARIN NA (PORCINE) 60 MG/0.6 ML DISP.SYRIN SQ SCH (09:30)
[2019-03-31] MEDS: PANTOPRAZOLE SODIUM 40 MG VIAL IVPUSH SCH ×2 (09:30→22:06)
[2019-03-31] MEDS ORDERED: POTASSIUM CHLORIDE ORAL LIQUID 20 MEQ/15 ML PO ONE (09:50)
[2019-03-31] MEDS ORDERED: NAPH,MB-DB/K PH,MBDB POWDER PACKET PO ONE (09:50)
[2019-03-31] MEDS ORDERED: FUROSEMIDE 40 MG/4 ML INJECTABLE VIAL IVPUSH ONE (10:30)
--- NOTE | 2019-03-31 12:01 | PN ---
Teaching Attending Note Name of Resident: Baljeet Parr ATTENDING PHYSICIAN STATEMENT I saw and evaluated the patient. I reviewed the resident's note and discussed the case with the resident. I agree with the resident's findings and plan as documented. SUBJECTIVE: Pt seen and examined in the ICU. More alert today, breathing less labored. Tolerated CPAP/PS and subsequently extubated during rounds. OBJECTIVE: Vital Signs Period Temp Pulse Resp BP Sys/Rapp Pulse Ox Last 24 Hr 97.8 F-101.9 F 72-125 15-29 83-151/51-81 99-100 Intake & Output 03/28/19 03/29/19 03/30/19 03/31/19 23:59 23:59 23:59 23:59 Intake Total 1442 3396 1115 Output Total 5956 2570 4594 Balance -3563 -209 -9476 Weight 68.674 kg 55.792 kg 52.844 kg 54.159 kg Gen: extubated Heart: RRR Lung: decreased breath sounds at the bases Abd: soft, nontender Ext: no edema CBC, BMP 03/31/19 06:00 03/31/19 06:00 Active Medications Acetaminophen (Ofirmev Injection -) 1,000 mg IVPB Q6H PRN PRN Reason: FEVER Last Admin: 03/31/19 03:13 Dose: 1,000 mg Amino Acids (Prosource No Carb Liquid Pkt) 30 ml PO DAILY [facility] Last Admin: 03/31/19 09:30 Dose: 30 ml Chlorhexidine Gluconate (Peridex -) 15 ml MM BID [facility] Last Admin: 03/31/19 09:30 Dose: 15 ml Dextrose (Glucose Tablet -) 4 gm PO PRN PRN PRN Reason: HYPOGLYCEMIA Enoxaparin Sodium (Lovenox -) 110 mg SQ DAILY [facility] Last Admin: 03/31/19 09:30 Dose: 110 mg Propofol (Diprivan -) 1,000,000 mcg in 100 mls @ 4.041 mls/hr IVPB TITR [facility]; Protocol Last Titration: 03/31/19 09:00 Dose: 0 mcg/kg/min, 0 mls/hr Dexmedetomidine HCl 400 mcg/ (Sodium Chloride) 100 mls @ 3.36 mls/hr IVPB TITR [facility] Last Infusion: 03/31/19 03:00 Dose: 0.72 mcg/kg/hr, 12.2 mls/hr Daptomycin 400 mg/ Sodium (Chloride) 50 mls @ 50 mls/hr IVPB DAILY@2300 [facility]; Protocol Last Admin: 03/30/19 23:23 Dose: 50 mls/hr Fentanyl 500 mcg/ Dextrose 100 mls @ 4 mls/hr IVPB TITR [facility]; Protocol Last Titration: 03/31/19 10:05 Dose: 0 mcg/hr, 0 mls/hr Insulin Aspart (Novolog Vial Sliding Scale -) 1 vial SQ Q4H [facility]; Protocol Last Admin: 03/31/19 07:15 Dose: Not Given Ondansetron HCl (Zofran Injection) 4 mg IVPUSH Q6H PRN PRN Reason: NAUSEA AND/OR VOMITING Last Admin: 03/14/19 05:07 Dose: 4 mg Pantoprazole Sodium (Protonix Iv) 40 mg IVPUSH BID [facility] Last Admin: 03/31/19 09:30 Dose: 40 mg Vancomycin HCl (Vancomycin Oral Solution) 125 mg PO Q6HPO [facility] Last Admin: 03/31/19 05:16 Dose: 125 mg ASSESSMENT AND PLAN: s/p Cardiopulmonary Arrest r/o Anoxic Brain Injury Acute Hypoxic Respiratory Failure Perforated Small Bowel s/p ex-lap/RAYSHAWN/segmental SB resection Crohn's Disease Peritonitis +C diff Colitis Septic Shock Lactic Acidosis Volume Overload h/o PE HTN DM Hyperlipidemia Anemia Thrombocytopenia h/o CVA - pt extubated - HFOT if more tachypneic - continue antibiotics per ID - lasix today - monitor urine output, creatinine - replete lytes - off pressors, maintain MAP > 65 - continue anticoagulation - DVT/GI prophylaxis - continue ICU monitoring critical care time spent in reviewing chart, evaluating patient and formulating plan 35 min
--- NOTE | 2019-03-31 12:43 | PN ---
Progress Note, Physician History of Present Illness: patient was extubated on face mask able to communicate still confused and bit lethargic - Current Medication List Current Medications: Active Medications Acetaminophen (Ofirmev Injection -) 1,000 mg IVPB Q6H PRN PRN Reason: FEVER Last Admin: 03/31/19 03:13 Dose: 1,000 mg Amino Acids (Prosource No Carb Liquid Pkt) 30 ml PO DAILY [facility] Last Admin: 03/31/19 09:30 Dose: 30 ml Chlorhexidine Gluconate (Peridex -) 15 ml MM BID [facility] Last Admin: 03/31/19 09:30 Dose: 15 ml Dextrose (Glucose Tablet -) 4 gm PO PRN PRN PRN Reason: HYPOGLYCEMIA Enoxaparin Sodium (Lovenox -) 110 mg SQ DAILY [facility] Last Admin: 03/31/19 09:30 Dose: 110 mg Propofol (Diprivan -) 1,000,000 mcg in 100 mls @ 4.041 mls/hr IVPB TITR [facility]; Protocol Last Titration: 03/31/19 09:00 Dose: 0 mcg/kg/min, 0 mls/hr Dexmedetomidine HCl 400 mcg/ (Sodium Chloride) 100 mls @ 3.36 mls/hr IVPB TITR [facility] Last Infusion: 03/31/19 03:00 Dose: 0.72 mcg/kg/hr, 12.2 mls/hr Daptomycin 400 mg/ Sodium (Chloride) 50 mls @ 50 mls/hr IVPB DAILY@2300 [facility]; Protocol Last Admin: 03/30/19 23:23 Dose: 50 mls/hr Fentanyl 500 mcg/ Dextrose 100 mls @ 4 mls/hr IVPB TITR [facility]; Protocol Last Titration: 03/31/19 10:05 Dose: 0 mcg/hr, 0 mls/hr Insulin Aspart (Novolog Vial Sliding Scale -) 1 vial SQ Q4H [facility]; Protocol Last Admin: 03/31/19 07:15 Dose: Not Given Ondansetron HCl (Zofran Injection) 4 mg IVPUSH Q6H PRN PRN Reason: NAUSEA AND/OR VOMITING Last Admin: 03/14/19 05:07 Dose: 4 mg Pantoprazole Sodium (Protonix Iv) 40 mg IVPUSH BID [facility] Last Admin: 03/31/19 09:30 Dose: 40 mg Vancomycin HCl (Vancomycin Oral Solution) 125 mg PO Q6HPO [facility] Last Admin: 03/31/19 05:16 Dose: 125 mg - Objective Vital Signs: Vital Signs Temperature 98.8 F 03/31/19 10:00 Pulse Rate 103 H 03/31/19 11:16 Respiratory Rate 20 03/31/19 10:00 Blood Pressure 125/79 03/31/19 10:00 O2 Sat by Pulse Oximetry (%) 99 03/31/19 11:16 Constitutional: Yes: Calm, Mild Distress Cardiovascular: Yes: Regular Rate and Rhythm, Tachycardia Respiratory: Yes: Regular, Poor Air Entry, Other (on face mask) Gastrointestinal: Yes: Normal Bowel Sounds, Soft Musculoskeletal: Yes: WNL Extremities: Yes: WNL Neurological: Yes: Alert, Lethargy, Other Labs: CBC, BMP 03/31/19 06:00 03/31/19 06:00 INR, PTT INR 0.95 (0.83-1.09) 03/26/19 06:00 Fibrinogen 359.0 mg/dL (238-498) 03/19/19 23:15 Assessment/Plan ble List - Problems (1) Diabetes Code(s): E11.9 - TYPE 2 DIABETES MELLITUS WITHOUT COMPLICATIONS (2) HLD (hyperlipidemia) Code(s): E78.5 - HYPERLIPIDEMIA, UNSPECIFIED (3) HTN (hypertension) Code(s): I10 - ESSENTIAL (PRIMARY) HYPERTENSION (4) Crohn's disease Code(s): K50.90 - CROHN'S DISEASE, UNSPECIFIED, WITHOUT COMPLICATIONS Qualifiers: Gastrointestinal tract location: small intestine Digestive disease complication type: with rectal bleeding Qualified Code(s): K50.011 - Crohn's disease of small intestine with rectal bleeding (5) Cerebrovascular accident (CVA) Code(s): I63.9 - CEREBRAL INFARCTION, UNSPECIFIED Qualifiers: CVA mechanism: unspecified Qualified Code(s): I63.9 - Cerebral infarction, unspecified (6) Diabetes mellitus, insulin dependent (IDDM), uncontrolled Code(s): E10.65 - TYPE 1 DIABETES MELLITUS WITH HYPERGLYCEMIA Assessment/Plan 48 y.o. female with PMH of uncontrolled IDDM and DKA, Crohn's disease on prednisone, CVA, PE, HTN, HLD presenting with abdominal pain Acute Respiratory failure on MV/sedation s/p cardiopulmonary arrest Sepsis Fever SB perforation s/p Ex-lap/RAYSHAWN/partial SB and omental resection with anastomosis/ washout Peritonitis : klebsiella/Enterococcus isolated C diff colitis Crohn's disease IDDM Hx of multiple DKA Hx of CVA Hx of PE HTN HLD plan close monitoring of resp status will deescalte abx resp support as per icu nutrition cc 40 min
--- NOTE | 2019-03-31 13:58 | PN ---
Progress Note (short form) - Note Progress Note: No change in vital signs, melena, BPR to suggest clinically significant GIB at this time. Continued small volume coffee ground material per NGT last 24 hours , though now intubated. Hgb stable (though low). No indication for EGD at this time. Would continue with PPI as currently doing. Will continue to follow with you.
--- NOTE | 2019-03-31 14:22 | PN ---
Physical Exam: SUBJECTIVE: Patient seen and examined OBJECTIVE: Patient is a 48 year old female with a past medical history of DKA. She is s/p post exploratory lap and resection of illial perforation 03/12. Post op course treated for bacteremia and C-Diff. AC was restarted post op (lovenox 110). She became pulseless on 03/19/19 at 0600 and CPR was initiated and was intubated. She is extubated today and on a venti mask. now off sedation. Period Temp Pulse Resp BP Sys/Rapp Pulse Ox Last 24 Hr 97.8 F-101.9 F 72-125 15-29 83-151/51-81 99-100 GENERAL: anasarca improving, more awake, non verbal HEAD: Normal with no signs of trauma. EYES: left eye with a small area of fluid build up inside sclera. ENT: Ears normal, nares patent, oropharynx clear without exudates, moist mucous membranes. NECK: Trachea midline, full range of motion, supple. LUNGS: diminished to auscultation bilaterally, extubated today. HEART: nsr 90s ABDOMEN: wound vac EXTREMITIES: anasacra-improved NEUROLOGICAL: awake Laboratory Results - last 24 hr 03/30/19 03/30/19 03/30/19 14:32 18:21 21:53 WBC RBC Hgb Hct MCV MCH MCHC RDW Plt Count MPV Absolute Neuts (auto) Neutrophils % Lymphocytes % Monocytes % Eosinophils % Basophils % Nucleated RBC % Sodium Potassium Chloride Carbon Dioxide Anion Gap BUN Creatinine Est GFR (CKD-EPI)AfAm Est GFR (CKD-EPI)NonAf POC Glucometer 138 330 110 Random Glucose Calcium Phosphorus Magnesium Total Bilirubin AST ALT Alkaline Phosphatase Total Protein Albumin Blood Type Antibody Screen Antibody Identification Antigen Identification Crossmatch 03/31/19 03/31/19 03/31/19 02:50 06:00 06:00 WBC 7.7 RBC 2.58 L Hgb 7.1 L Hct 22.0 L MCV 85.0 MCH 27.4 MCHC 32.3 RDW 24.3 H Plt Count 540 H MPV 7.7 Absolute Neuts (auto) 6.0 Neutrophils % 77.6 D Lymphocytes % 12.9 D Monocytes % 7.1 Eosinophils % 0.6 D Basophils % 1.8 Nucleated RBC % 0 Sodium 143 Potassium 3.1 L Chloride 105 Carbon Dioxide 26 Anion Gap 12 BUN 15.9 Creatinine 0.5 L Est GFR (CKD-EPI)AfAm 131.72 Est GFR (CKD-EPI)NonAf 113.65 POC Glucometer 387 Random Glucose 157 H Calcium 7.6 L Phosphorus 1.7 L Magnesium 2.0 Total Bilirubin 0.3 AST 19 ALT 13 Alkaline Phosphatase 130 H Total Protein 5.0 L Albumin 1.6 L Blood Type Antibody Screen Antibody Identification Antigen Identification Crossmatch 03/31/19 03/31/19 03/31/19 06:43 10:58 12:18 WBC RBC Hgb Hct MCV MCH MCHC RDW Plt Count MPV Absolute Neuts (auto) Neutrophils % Lymphocytes % Monocytes % Eosinophils % Basophils % Nucleated RBC % Sodium Potassium Chloride Carbon Dioxide Anion Gap BUN Creatinine Est GFR (CKD-EPI)AfAm Est GFR (CKD-EPI)NonAf POC Glucometer 123 479 Random Glucose Calcium Phosphorus Magnesium Total Bilirubin AST ALT Alkaline Phosphatase Total Protein Albumin Blood Type A NEGATIVE Antibody Screen Positive Antibody Identification Anti-d Antigen Identification No Result Required. Crossmatch See Detail Active Medications Generic Name Dose Route Start Last Admin Trade Name Freq PRN Reason Stop Dose Admin Acetaminophen 1,000 mg 03/29/19 16:17 03/31/19 03:13 Ofirmev Injection - IVPB 1,000 mg Q6H PRN Administration FEVER Amino Acids 30 ml 03/26/19 15:30 03/31/19 09:30 Prosource No Carb Liquid Pkt PO 30 ml DAILY [facility] Administration Chlorhexidine Gluconate 15 ml 03/29/19 10:00 03/31/19 09:30 Peridex - MM 15 ml BID [facility] Administration Dextrose 4 gm 03/28/19 23:06 Glucose Tablet - PO PRN PRN HYPOGLYCEMIA Enoxaparin Sodium 110 mg 03/26/19 13:30 03/31/19 09:30 Lovenox - SQ 110 mg DAILY [facility] Administration Propofol 1,000,000 mcg in 100 mls @ 4.041 mls/hr 03/24/19 00:15 03/31/19 09: 00 Diprivan - IVPB 0 mcg/kg/min TITR [facility] 0 mls/hr Titration Protocol 10 MCG/KG/MIN Dexmedetomidine HCl 400 mcg/ 100 mls @ 3.36 mls/hr 03/24/19 12:45 03/31/19 03 :00 Sodium Chloride IVPB 0.72 mcg/kg/hr TITR [facility] 12.2 mls/hr Infusion 0.2 MCG/KG/HR Daptomycin 400 mg/ Sodium 50 mls @ 50 mls/hr 03/27/19 23:00 03/30/19 23:23 Chloride IVPB 50 mls/hr DAILY@2300 [facility] Administration Protocol Fentanyl 500 mcg/ Dextrose 100 mls @ 4 mls/hr 03/30/19 13:30 03/31/19 10:05 IVPB 0 mcg/hr TITR [facility] 0 mls/hr Titration Protocol 20 MCG/HR Insulin Aspart 1 vial 03/26/19 02:15 03/31/19 13:21 Novolog Vial Sliding Scale - SQ 12 units Q4H [facility] Administration Protocol Ondansetron HCl 4 mg 03/11/19 20:31 03/14/19 05:07 Zofran Injection IVPUSH 4 mg Q6H PRN Administration NAUSEA AND/OR VOMITING Pantoprazole Sodium 40 mg 03/30/19 10:00 03/31/19 09:30 Protonix Iv IVPUSH 40 mg BID [facility] Administration Vancomycin HCl 125 mg 03/15/19 18:00 03/31/19 13:23 Vancomycin Oral Solution PO 125 mg Q6HPO [facility] Administration ASSESSMENT/PLAN: Problem List - Problems (1) Acute respiratory failure Assessment/Plan: extubated today, on venti mask lasix 40mg BID appreciate ICU level of care Code(s): J96.00 - ACUTE RESPIRATORY FAILURE, UNSP W HYPOXIA OR HYPERCAPNIA (2) Perforated abdominal viscus Assessment/Plan: s/p Ex-lap/RAYSHAWN/partial SB and omental resection with anastomosis/washout on 03/12 general surgery following wound dihisecence noted at distal portion, vac in place dressing changes as per surgery Code(s): FDA9866 - (3) Abdominal pain Assessment/Plan: Patient is/p ex-lap/RAYSHAWN/partial SB and omental resection with anastomosis/ washout appreciate surgical and ID consultation Code(s): R10.9 - UNSPECIFIED ABDOMINAL PAIN Qualifiers: Abdominal location: generalized Qualified Code(s): R10.84 - Generalized abdominal pain (4) C. difficile diarrhea Assessment/Plan: vanco 125mg QID c/w rectal tube Code(s): A04.72 - ENTEROCOLITIS D/T CLOSTRIDIUM DIFFICILE, NOT SPCF RECUR (5) Diabetes Assessment/Plan: monitor bgms. on short acting novolog. Code(s): E11.9 - TYPE 2 DIABETES MELLITUS WITHOUT COMPLICATIONS (6) ESBL (extended spectrum beta-lactamase) producing bacteria infection Assessment/Plan: esbl in wound culture. maintain contact precautions. Code(s): A49.9 - BACTERIAL INFECTION, UNSPECIFIED; Z16.12 - EXTENDED SPECTRUM BETA LACTAMASE (ESBL) RESISTANCE (7) HTN (hypertension) Assessment/Plan: ICU monitoring with frequent checks Code(s): I10 - ESSENTIAL (PRIMARY) HYPERTENSION (8) Left-sided weakness Assessment/Plan: chronic left sided weakness. now with edema of both arms and anasarca Code(s): R53.1 - WEAKNESS (9) Acute Crohn's disease Assessment/Plan: lysis of adhesions, segmental resection of small intestinal perforation with side-side stapled anastomosis, abdominal washout, resection of portion of omentum. GI following. Code(s): K50.90 - CROHN'S DISEASE, UNSPECIFIED, WITHOUT COMPLICATIONS (10) Anemia Assessment/Plan: s/p 2 units of prbc. monitor cbc daily Code(s): D64.9 - ANEMIA, UNSPECIFIED (11) Respiratory failure Code(s): J96.90 - RESPIRATORY FAILURE, UNSP, UNSP W HYPOXIA OR HYPERCAPNIA (12) Prophylactic measure Assessment/Plan: NPO monitor electrolytes tube feeds. pivot DVT on lovenox 110 Dispo requires ICU care full code Code(s): Z29.9 - ENCOUNTER FOR PROPHYLACTIC MEASURES, UNSPECIFIED Visit type - Emergency Visit Emergency Visit: Yes ED Registration Date: 03/09/19 Care time: The patient presented to the Emergency Department on the above date and was hospitalized for further evaluation of their emergent condition. - New Patient This patient is new to me today: No - Critical Care Critical Care patient: Yes Total Critical Care Time (in minutes): 40 Critical Care Statement: The care of this patient involved high complexity decision making to prevent further life threatening deterioration of the patient 's condition and/or to evaluate & treat vital organ system(s) failure or risk of failure.
--- NOTE | 2019-03-31 14:31 | PN ---
Progress Note, Physician Chief Complaint: Abdominal Pain History of Present Illness: 48yo female PMH HTN, CVA (left sided hemiparesis), HLD, IDDM, DKA resulting in multiple admissions, dysphagia, gastroparesis, esophageal stricture (EGD 02/14), c/diff (10/2018), SBO September 2018 (s/p SB resection at [facility] as per pt report) presented to [place] ED on the afternoon of 12/21 with complaints of N/V/D/ abd pain intermittently for years. She is clinically improved but can not yet bee weened. Continues to spike high fevers - Current Medication List Current Medications: Active Medications Acetaminophen (Ofirmev Injection -) 1,000 mg IVPB Q6H PRN PRN Reason: FEVER Last Admin: 03/31/19 03:13 Dose: 1,000 mg Amino Acids (Prosource No Carb Liquid Pkt) 30 ml PO DAILY [facility] Last Admin: 03/31/19 09:30 Dose: 30 ml Chlorhexidine Gluconate (Peridex -) 15 ml MM BID [facility] Last Admin: 03/31/19 09:30 Dose: 15 ml Dextrose (Glucose Tablet -) 4 gm PO PRN PRN PRN Reason: HYPOGLYCEMIA Enoxaparin Sodium (Lovenox -) 110 mg SQ DAILY [facility] Last Admin: 03/31/19 09:30 Dose: 110 mg Propofol (Diprivan -) 1,000,000 mcg in 100 mls @ 4.041 mls/hr IVPB TITR [facility]; Protocol Last Titration: 03/31/19 09:00 Dose: 0 mcg/kg/min, 0 mls/hr Dexmedetomidine HCl 400 mcg/ (Sodium Chloride) 100 mls @ 3.36 mls/hr IVPB TITR [facility] Last Infusion: 03/31/19 03:00 Dose: 0.72 mcg/kg/hr, 12.2 mls/hr Daptomycin 400 mg/ Sodium (Chloride) 50 mls @ 50 mls/hr IVPB DAILY@2300 [facility]; Protocol Last Admin: 03/30/19 23:23 Dose: 50 mls/hr Fentanyl 500 mcg/ Dextrose 100 mls @ 4 mls/hr IVPB TITR [facility]; Protocol Last Titration: 03/31/19 10:05 Dose: 0 mcg/hr, 0 mls/hr Insulin Aspart (Novolog Vial Sliding Scale -) 1 vial SQ Q4H [facility]; Protocol Last Admin: 03/31/19 13:21 Dose: 12 units Ondansetron HCl (Zofran Injection) 4 mg IVPUSH Q6H PRN PRN Reason: NAUSEA AND/OR VOMITING Last Admin: 03/14/19 05:07 Dose: 4 mg Pantoprazole Sodium (Protonix Iv) 40 mg IVPUSH BID [facility] Last Admin: 03/31/19 09:30 Dose: 40 mg Vancomycin HCl (Vancomycin Oral Solution) 125 mg PO Q6HPO [facility] Last Admin: 03/31/19 13:23 Dose: 125 mg - Objective Vital Signs: Vital Signs Temperature 99.4 F 03/31/19 12:00 Pulse Rate 100 H 03/31/19 12:00 Respiratory Rate 19 03/31/19 12:00 Blood Pressure 109/71 03/31/19 12:00 O2 Sat by Pulse Oximetry (%) 99 03/31/19 11:16 Vital Signs Period Temp Pulse Resp BP Sys/Rapp Pulse Ox Last 24 Hr 98.5 F-101.3 F 83-109 20-30 113-156/65-93 97-100 Intake & Output 04/09/19 04/10/19 04/10/19 23:59 07:59 15:59 Intake Total 1150 Output Total 200 600 Balance 950 -600 Weight 127 lb 1 oz Intake: IV 750 D5-Lr - 1,000 ml @ 75 mls 750 /hr IV ASDIR [facility] Rx#: [id number] IVPB 300 Tube Irrigant 100 Output: Drainage 200 Medial Abdomen 200 Urine 600 Lott 600 Other: Voiding Method Indwelling Catheter Bowel Movement No Yes Weight Measurement Method Built in [facility] Constitutional: Yes: No Distress, Calm, Cachectic Eyes: Yes: Conjunctiva Clear, EOM Intact HENT: Yes: Atraumatic, Normocephalic Neck: Yes: Supple, Trachea Midline Cardiovascular: Yes: Regular Rate and Rhythm, S1, S2 Respiratory: Yes: Regular, CTA Bilaterally Gastrointestinal: Yes: Normal Bowel Sounds, Soft. No: Tenderness ...Rectal Exam: Yes: Deferred Genitourinary: No: CVA Tenderness - Left, CVA Tenderness - Right, Vaginal Bleeding, Vaginal Discharge Breast(s): No: Mass, Skin Changes Musculoskeletal: No: Muscle Pain, Muscle Weakness Extremities: No: Cool, Cyanosis Edema: No Peripheral Pulses WNL: Yes Peripheral Pulses: Left Radial: 2+, Right Radial: 2+, Left Doralis Pedis: 2+, Right Dorsalis Pedis: 2+, Left Femoral: 2+, Right Femoral: 2+ Integumentary: No: Jaundice, Rash Wound/Incision: Yes: Clean/Dry, Draining (VAC dressing in place @125mmhg continuous), Unapproximated Neurological: Yes: Alert, Confusion. No: Oriented Psychiatric: Yes: Alert. No: Oriented Labs: CBC, BMP 03/31/19 06:00 03/31/19 06:00 INR, PTT INR 0.95 (0.83-1.09) 03/26/19 06:00 Fibrinogen 359.0 mg/dL (238-498) 03/19/19 23:15 Problem List - Problems (1) Small bowel obstruction Assessment/Plan: 48yo female with MMP including SBO, chronic constipation, Gastroparesis and crohns disease presenting with Abdominal pain. She has several possible explanations for this pain. POD#19 Exp Lap and Segmental resection of small intestinal perforation. Poor saturation and hospital acquired infections ESBL and Cdiff. Intubated overnight. GIB now improved H&H following transfusion. Monitored Setting ICU management VAC dressing changed, due / Antibiotics per ID Transfuse as need crohns management will follow This patient is critically ill. Time spent reviewing chart, examining patient, talking with providers and/or family and documentation is 35 minutes. Problems reviewed: Yes Code(s): K56.609 - UNSP INTESTNL OBST, UNSP TO PARTIAL VERSUS COMPLETE OBST (2) Abdominal pain Problems reviewed: Yes Code(s): R10.9 - UNSPECIFIED ABDOMINAL PAIN Qualifiers: Abdominal location: generalized Qualified Code(s): R10.84 - Generalized abdominal pain (3) Crohn's disease Problems reviewed: Yes Code(s): K50.90 - CROHN'S DISEASE, UNSPECIFIED, WITHOUT COMPLICATIONS Qualifiers: Gastrointestinal tract location: small intestine Digestive disease complication type: with rectal bleeding Qualified Code(s): K50.011 - Crohn's disease of small intestine with rectal bleeding (4) DKA (diabetic ketoacidoses) Problems reviewed: Yes Code(s): E13.10 - OTH DIABETES MELLITUS WITH KETOACIDOSIS WITHOUT COMA Qualifiers: Diabetes mellitus type: type 1 Diabetes mellitus complication detail: without coma Qualified Code(s): E10.10 - Type 1 diabetes mellitus with ketoacidosis without coma (5) Nausea & vomiting Problems reviewed: Yes Code(s): R11.2 - NAUSEA WITH VOMITING, UNSPECIFIED Qualifiers: Vomiting type: cyclical vomiting Vomiting Intractability: intractable (6) Cerebrovascular accident (CVA) Problems reviewed: Yes Code(s): I63.9 - CEREBRAL INFARCTION, UNSPECIFIED Qualifiers: CVA mechanism: unspecified Qualified Code(s): I63.9 - Cerebral infarction, unspecified
[2019-03-31] MEDS: FENTANYL INJECTION 500 MCG in DEXTROSE 5%-WATER - 90 ML IVPB SCH (15:15)
[2019-03-31] MEDS: DEXMEDETOMIDINE HCL 400 MCG in SODIUM CHLORIDE 96 ML IVPB SCH (15:15)
[2019-03-31] MEDS: PROPOFOL 1,000,000 MCG/100 ML VIAL IVPB SCH (15:15)
--- NOTE | 2019-03-31 16:13 | PN ---
Physical Exam: SUBJECTIVE: Patient seen and examined at bedside in the ICU. Extubated today during rounds. On venti mask 40%. Patient's eyes are open and she is tracking the room but unable to communicate or respond to instructions. OBJECTIVE: Vital Signs Period Temp Pulse Resp BP Sys/Rapp Pulse Ox Last 24 Hr 97.8 F-101.9 F 72-125 15-29 83-151/51-81 99-100 GENERAL: The patient is alert, tracking, but not able to respond or follow instructions. In no acute distress. HEAD: Normal with no signs of trauma. EYES: PERRL, extraocular movements intact, sclera anicteric, conjunctiva clear. No ptosis. ENT: Ears normal, nares patent, oropharynx clear without exudates. NECK: Trachea midline, full range of motion, supple. LUNGS: Breath sounds equal, clear to auscultation bilaterally, no accessory muscle use. HEART: Regular rate and rhythm, S1, S2 without murmur, rub or gallop. ABDOMEN: Soft, nontender, nondistended. Dressings and wound vac in place. No obvious bleeding from abdominal incision. EXTREMITIES: 2+ pulses, warm, well-perfused, no edema. NEUROLOGICAL: Able to track the room but unable to communicate or follow instructions. PSYCH: Unable to assess SKIN: Warm, dry, normal turgor, no rashes or lesions noted Laboratory Results - last 24 hr 03/30/19 03/30/19 03/31/19 18:21 21:53 02:50 WBC RBC Hgb Hct MCV MCH MCHC RDW Plt Count MPV Absolute Neuts (auto) Neutrophils % Lymphocytes % Monocytes % Eosinophils % Basophils % Nucleated RBC % Sodium Potassium Chloride Carbon Dioxide Anion Gap BUN Creatinine Est GFR (CKD-EPI)AfAm Est GFR (CKD-EPI)NonAf POC Glucometer 330 110 387 Random Glucose Calcium Phosphorus Magnesium Total Bilirubin AST ALT Alkaline Phosphatase Total Protein Albumin Blood Type Antibody Screen Antibody Identification Antigen Identification Crossmatch 03/31/19 03/31/19 03/31/19 06:00 06:00 06:43 WBC 7.7 RBC 2.58 L Hgb 7.1 L Hct 22.0 L MCV 85.0 MCH 27.4 MCHC 32.3 RDW 24.3 H Plt Count 540 H MPV 7.7 Absolute Neuts (auto) 6.0 Neutrophils % 77.6 D Lymphocytes % 12.9 D Monocytes % 7.1 Eosinophils % 0.6 D Basophils % 1.8 Nucleated RBC % 0 Sodium 143 Potassium 3.1 L Chloride 105 Carbon Dioxide 26 Anion Gap 12 BUN 15.9 Creatinine 0.5 L Est GFR (CKD-EPI)AfAm 131.72 Est GFR (CKD-EPI)NonAf 113.65 POC Glucometer 123 Random Glucose 157 H Calcium 7.6 L Phosphorus 1.7 L Magnesium 2.0 Total Bilirubin 0.3 AST 19 ALT 13 Alkaline Phosphatase 130 H Total Protein 5.0 L Albumin 1.6 L Blood Type Antibody Screen Antibody Identification Antigen Identification Crossmatch 03/31/19 03/31/19 03/31/19 10:58 12:18 15:09 WBC RBC Hgb Hct MCV MCH MCHC RDW Plt Count MPV Absolute Neuts (auto) Neutrophils % Lymphocytes % Monocytes % Eosinophils % Basophils % Nucleated RBC % Sodium Potassium Chloride Carbon Dioxide Anion Gap BUN Creatinine Est GFR (CKD-EPI)AfAm Est GFR (CKD-EPI)NonAf POC Glucometer 479 356 Random Glucose Calcium Phosphorus Magnesium Total Bilirubin AST ALT Alkaline Phosphatase Total Protein Albumin Blood Type A NEGATIVE Antibody Screen Positive Antibody Identification Anti-d Antigen Identification No Result Required. Crossmatch See Detail Active Medications Generic Name Dose Route Start Last Admin Trade Name Freq PRN Reason Stop Dose Admin Acetaminophen 1,000 mg 03/29/19 16:17 03/31/19 03:13 Ofirmev Injection - IVPB 1,000 mg Q6H PRN Administration FEVER Amino Acids 30 ml 03/26/19 15:30 03/31/19 09:30 Prosource No Carb Liquid Pkt PO 30 ml DAILY [facility] Administration Chlorhexidine Gluconate 15 ml 03/29/19 10:00 03/31/19 09:30 Peridex - MM 15 ml BID [facility] Administration Dextrose 4 gm 03/28/19 23:06 Glucose Tablet - PO PRN PRN HYPOGLYCEMIA Enoxaparin Sodium 110 mg 03/26/19 13:30 03/31/19 09:30 Lovenox - SQ 110 mg DAILY [facility] Administration Propofol 1,000,000 mcg in 100 mls @ 4.041 mls/hr 03/24/19 00:15 03/31/19 15: 15 Diprivan - IVPB Not Given TITR [facility] Protocol 10 MCG/KG/MIN Dexmedetomidine HCl 400 mcg/ 100 mls @ 3.36 mls/hr 03/24/19 12:45 03/31/19 15 :15 Sodium Chloride IVPB Not Given TITR [facility] 0.2 MCG/KG/HR Daptomycin 400 mg/ Sodium 50 mls @ 50 mls/hr 03/27/19 23:00 03/30/19 23:23 Chloride IVPB 50 mls/hr DAILY@2300 [facility] Administration Protocol Fentanyl 500 mcg/ Dextrose 100 mls @ 4 mls/hr 03/30/19 13:30 03/31/19 15:15 IVPB Not Given TITR [facility] Protocol 20 MCG/HR Insulin Aspart 1 vial 03/26/19 02:15 03/31/19 13:21 Novolog Vial Sliding Scale - SQ 12 units Q4H [facility] Administration Protocol Ondansetron HCl 4 mg 03/11/19 20:31 03/14/19 05:07 Zofran Injection IVPUSH 4 mg Q6H PRN Administration NAUSEA AND/OR VOMITING Pantoprazole Sodium 40 mg 03/30/19 10:00 03/31/19 09:30 Protonix Iv IVPUSH 40 mg BID [facility] Administration Vancomycin HCl 125 mg 03/15/19 18:00 03/31/19 13:23 Vancomycin Oral Solution PO 125 mg Q6HPO [facility] Administration ASSESSMENT/PLAN: This is a 48F PMH IDDM, PE on xarelto, frequent DKA, HTN, HLD, CVA w/ left sided weakness, recent hospitalization at [facility] September 2018 admitted to ICU for SBO. Developed pneumoperitoneum s/p ex-lap. POD #16 Neuro - sedated - extubated - Tylenol for pain/fever ctrl - dilaudid 1 mg q4h PRN for pain control CV - hx of transient a-fib with RVR - sinus tachy 100, ekg ordered to assess rythym - No longer hypotensive - Maintain MAP >65 - off pressors - central line no longer in place - continue monitoring urine output Respiratory - Lasix IV 40 today - monitor resp status - HFOT if tachypneic GI - Crohn's flair likely, pneumoperitoneum s/p ex-lap - GI recs appreciated continuing w/ C diff management - confirmed with surgery regarding CT abdomen and pelvis with contrast via NG tube and IV contrast to assess for a fluid collection/other cause of infection. - VAC dressing change supposed to have been two days ago but was not done. - Antibiotics per ID - tube feeds d/c pivot to 50cc/hr - CT abd negative for abscess but showing a subacute or chronic renal infarct, however pt is on 110 Lovenox SQ given hx of PE. - unkown source of infn at this time. ID-> C diff - c/w vanco for 1 week after other abx are d/c, c/w daptomycin - repeating cultures to assess if new source of infn considering spike in fever. - may need to rpt CT abd pelvis to r/o abscess as new source of infn if cultures remain negative. Endocrine - d/c levemir - novolog SS - one dose of 15units novolog given for hyperglycemia. FEN - Lytes in AM, replete PRN - Monitor I/Os - Monitor UrO, Cr PPx: Lovenox 110, SCDs Dispo: continue ICU care Visit type - Emergency Visit Emergency Visit: Yes ED Registration Date: 03/09/19 Care time: The patient presented to the Emergency Department on the above date and was hospitalized for further evaluation of their emergent condition. - New Patient This patient is new to me today: No - Critical Care Critical Care patient: Yes Total Critical Care Time (in minutes): 35 Critical Care Statement: The care of this patient involved high complexity decision making to prevent further life threatening deterioration of the patient 's condition and/or to evaluate & treat vital organ system(s) failure or risk of failure. ATTENDING PHYSICIAN STATEMENT I saw and evaluated the patient. I reviewed the resident's note and discussed the case with the resident. I agree with the resident's findings and plan as documented. SUBJECTIVE: OBJECTIVE: ASSESSMENT AND PLAN:
[2019-03-31] MEDS: DAPTOMYCIN 400 MG in SODIUM CHLORIDE 50 ML IVPB SCH (23:16)
[2019-04-01] MEDS: PROPOFOL 1,000,000 MCG/100 ML VIAL IVPB SCH ×2 (00:40→15:18)
[2019-04-01] MEDS: VANCOMYCIN 250 MG/5 ML ORAL SOLUTION PO SCH ×4 (00:41→18:09)
[2019-04-01] MEDS: INSULIN SLIDING SCALE (NOVOLOG) 1 VIAL SQ SCH ×4 (02:40→15:33)
[2019-04-01 07:15] LABS: BASO % 0.6 % (0-2.0); HEMATOCRIT 29.8 % (32.4-45.2); HEMOGLOBIN 9.4 GM/dL (10.7-15.3); LYMPH % 5.8 % (8-40); MCH 27.5 pg (25.7-33.7); MCHC 31.6 g/dl (32.0-36.0); MEAN PLT VOLUME 7.5 fl (7.5-11.1); MONO % 4.8 % (3.8-10.2); NEUT % 88.8 % (42.8-82.8); PLATELET COUNT 691 K/MM3 (134-434); RBC 3.43 M/mm3 (3.60-5.2); RDW 23.2 % (11.6-15.6); WHITE BLOOD COUNT 12.8 K/mm3 (4.0-10.0)
[2019-04-01 07:48] LABS: ALBUMIN 2.1 g/dl (3.4-5.0); BILIRUBIN,TOTAL 0.6 mg/dL (0.2-1); BLOOD UREA NITROGEN 15.4 mg/dL (7-18); CALCIUM 8.4 mg/dL (8.5-10.1); CREATININE 0.5 mg/dL (0.55-1.3); MAGNESIUM 2.2 mg/dL (1.8-2.4); POTASSIUM 3.4 mmol/L (3.5-5.1); TOT PROT 6.5 g/dl (6.4-8.2)
[2019-04-01 09:07] LABS: ARTERIAL BLD GAS O2 SATURATION 97.7 % (95-98); ARTERIAL BLOOD GAS BASE EXCESS -15.9 meq/l (-2-2); ARTERIAL BLOOD GAS PCO2 17.5 mmHg (35-45); ARTERIAL BLOOD GAS PO2 115 mmHg (80-100); ARTERIAL BLOOD GAS pH 7.32 (7.35-7.45)
[2019-04-01 09:22] LABS: ALLENS TEST POSITIVE
[2019-04-01] MEDS: KCL 10 MEQ IVPB 10 MEQ/100 ML INFUS.BAG IVPB SCH ×5 (10:04→23:41)
[2019-04-01] MEDS: AMINO ACIDS/PROTEIN HYDROLYS 30 ML LIQUID.PKT PO SCH (10:05)
[2019-04-01] MEDS: ENOXAPARIN NA (PORCINE) 60 MG/0.6 ML DISP.SYRIN SQ SCH (10:05)
[2019-04-01] MEDS: CHLORHEXIDINE GLUCONATE 0.12% 15ML CUP MM SCH ×2 (10:05→21:45)
[2019-04-01] MEDS: PANTOPRAZOLE SODIUM 40 MG VIAL IVPUSH SCH ×2 (10:17→21:45)
[2019-04-01] MEDS ORDERED: INSULIN (NOVOLOG) ASPART 100 UNITS/ML 10ML VIAL ONE (10:39)
[2019-04-01] MEDS ORDERED: FUROSEMIDE 40 MG/4 ML INJECTABLE VIAL IVPUSH ONE (11:15)
--- NOTE | 2019-04-01 11:31 | PN ---
Teaching Attending Note Name of Resident: Howie Chavis ATTENDING PHYSICIAN STATEMENT I saw and evaluated the patient. I reviewed the resident's note and discussed the case with the resident. I agree with the resident's findings and plan as documented. SUBJECTIVE: Pt seen and examined in the ICU. Remains extubated but breathing more labored with accessory muscle use. Pt awake with some tracking but not following commands, moving extremities but no purposeful movements. OBJECTIVE: Vital Signs Period Temp Pulse Resp BP Sys/Rapp Pulse Ox Last 24 Hr 98.4 F-99.9 F 12-113 18-30 109-161/65-126 99-99 Intake & Output 03/29/19 03/30/19 03/31/19 04/01/19 23:59 23:59 23:59 23:59 Intake Total 3396 1115 440 Output Total 3500 3185 3560 1605 Balance -104 -2070 -3120 -1608 Weight 55.792 kg 52.844 kg 54.159 kg 42.91 kg Gen: tachypneic at rest Heart: RRR Lung: scattered rhonchi Abd: soft, nontender, +wound vac Ext: + edema CBC, BMP 04/01/19 06:43 Active Medications Acetaminophen (Ofirmev Injection -) 1,000 mg IVPB Q6H PRN PRN Reason: FEVER Last Admin: 03/31/19 03:13 Dose: 1,000 mg Amino Acids (Prosource No Carb Liquid Pkt) 30 ml PO DAILY [facility] Last Admin: 04/01/19 10:05 Dose: 30 ml Chlorhexidine Gluconate (Peridex -) 15 ml MM BID [facility] Last Admin: 04/01/19 10:05 Dose: 15 ml Dextrose (Glucose Tablet -) 4 gm PO PRN PRN PRN Reason: HYPOGLYCEMIA Enoxaparin Sodium (Lovenox -) 80 mg SQ DAILY [facility] Daptomycin 400 mg/ Sodium (Chloride) 50 mls @ 50 mls/hr IVPB DAILY@2300 [facility]; Protocol Last Admin: 03/31/19 23:16 Dose: 50 mls/hr Insulin Aspart (Novolog Vial Sliding Scale -) 1 vial SQ Q4H [facility]; Protocol Last Admin: 04/01/19 10:34 Dose: 12 units Insulin Detemir (Levemir Vial) 10 units SQ HS [facility] Ondansetron HCl (Zofran Injection) 4 mg IVPUSH Q6H PRN PRN Reason: NAUSEA AND/OR VOMITING Last Admin: 03/14/19 05:07 Dose: 4 mg Pantoprazole Sodium (Protonix Iv) 40 mg IVPUSH BID [facility] Last Admin: 04/01/19 10:17 Dose: 40 mg Vancomycin HCl (Vancomycin Oral Solution) 125 mg PO Q6HPO [facility] Last Admin: 04/01/19 06:40 Dose: 125 mg ASSESSMENT AND PLAN: s/p Cardiopulmonary Arrest r/o Anoxic Brain Injury Acute Hypoxic Respiratory Failure Perforated Small Bowel s/p ex-lap/RAYSHAWN/segmental SB resection Crohn's Disease Peritonitis +C diff Colitis Septic Shock Lactic Acidosis Volume Overload h/o PE HTN DM Hyperlipidemia Anemia Thrombocytopenia h/o CVA - trial of HFOT - likely will need re-intubation and tracheostomy - continue antibiotics per ID - lasix today - monitor urine output, creatinine - check lactate - replete lytes - increase free water - off pressors, maintain MAP > 65 - continue anticoagulation - DVT/GI prophylaxis - continue ICU monitoring critical care time spent in reviewing chart, evaluating patient and formulating plan 35 min
[2019-04-01 11:46] LABS: ARTERIAL BLD GAS O2 SATURATION 97.5 % (95-98); ARTERIAL BLOOD GAS BASE EXCESS -24.8 meq/l (-2-2); ARTERIAL BLOOD GAS PO2 163 mmHg (80-100)
[2019-04-01 11:51] LABS: ALLENS TEST POSITIVE
[2019-04-01 11:54] LABS: ARTERIAL BLOOD GAS PCO2 13.9 mmHg (35-45); ARTERIAL BLOOD GAS pH 7.08 (7.35-7.45)
[2019-04-01] MEDS ORDERED: SODIUM BICARBONATE 8.4% 50 MEQ/50 ML VIAL IVPUSH ONE (11:56)
[2019-04-01] MEDS ORDERED: PROPOFOL 200 MG/20 ML VIAL IVPUSH ONE (11:56)
[2019-04-01] MEDS ORDERED: SUCCINYLCHOLINE CHLORIDE 200 MG/10 ML VIAL IVPUSH ONE (11:56)
[2019-04-01] MEDS ORDERED: SUCCINYLCHOLINE CHLORIDE 200 MG/10 ML VIAL ONE (11:58)
[2019-04-01] MEDS ORDERED: PROPOFOL 1,000,000 MCG/100 ML VIAL ONE (11:58)
[2019-04-01] MEDS ORDERED: SODIUM BICARBONATE 8.4% 50 MEQ/50 ML VIAL ONE (11:59)
[2019-04-01 12:01] LABS: BLOOD UREA NITROGEN 17.2 mg/dL (7-18); CALCIUM 8.1 mg/dL (8.5-10.1); CREATININE 0.6 mg/dL (0.55-1.3); POTASSIUM 3.8 mmol/L (3.5-5.1)
[2019-04-01] MEDS ORDERED: SODIUM CHLORIDE 1,000 ML IV STA (12:12)
--- NOTE | 2019-04-01 12:20 | PN ---
Progress Note, Physician - Current Medication List Current Medications: Active Medications Acetaminophen (Ofirmev Injection -) 1,000 mg IVPB Q6H PRN PRN Reason: FEVER Last Admin: 03/31/19 03:13 Dose: 1,000 mg Amino Acids (Prosource No Carb Liquid Pkt) 30 ml PO DAILY [facility] Last Admin: 04/01/19 10:05 Dose: 30 ml Chlorhexidine Gluconate (Peridex -) 15 ml MM BID [facility] Last Admin: 04/01/19 10:05 Dose: 15 ml Dextrose (Glucose Tablet -) 4 gm PO PRN PRN PRN Reason: HYPOGLYCEMIA Enoxaparin Sodium (Lovenox -) 80 mg SQ DAILY [facility] Daptomycin 400 mg/ Sodium (Chloride) 50 mls @ 50 mls/hr IVPB DAILY@2300 [facility]; Protocol Last Admin: 03/31/19 23:16 Dose: 50 mls/hr Fentanyl 500 mcg/ Dextrose 100 mls @ 10 mls/hr IVPB TITR [facility] Propofol (Diprivan -) 1,000,000 mcg in 100 mls @ 1.287 mls/hr IVPB TITR [facility]; Protocol Sodium Chloride (Normal Saline -) 1,000 mls @ 1,000 mls/hr IV ASDIR STA Stop: 04/01/19 13:11 Insulin Aspart (Novolog Vial Sliding Scale -) 1 vial SQ Q4H [facility]; Protocol Last Admin: 04/01/19 10:34 Dose: 12 units Insulin Detemir (Levemir Vial) 10 units SQ HS [facility] Ondansetron HCl (Zofran Injection) 4 mg IVPUSH Q6H PRN PRN Reason: NAUSEA AND/OR VOMITING Last Admin: 03/14/19 05:07 Dose: 4 mg Pantoprazole Sodium (Protonix Iv) 40 mg IVPUSH BID [facility] Last Admin: 04/01/19 10:17 Dose: 40 mg Propofol (Diprivan -) 25 mcg IVPUSH ONCE ONE Stop: 04/01/19 11:57 Sodium Bicarbonate (Sodium Bicarbonate 8.4% -) 50 meq IVPUSH ONCE ONE Stop: 04/01/19 11:57 Succinylcholine Chloride (Quelicin -) 100 mg IVPUSH ONCE ONE Stop: 04/01/19 11:57 Vancomycin HCl (Vancomycin Oral Solution) 125 mg PO Q6HPO [facility] Last Admin: 04/01/19 06:40 Dose: 125 mg - Objective Vital Signs: Vital Signs Temperature 99.2 F 04/01/19 10:00 Pulse Rate 106 H 04/01/19 10:00 Respiratory Rate 26 H 04/01/19 10:00 Blood Pressure 161/126 H 04/01/19 10:00 O2 Sat by Pulse Oximetry (%) 99 03/31/19 21:00 Labs: CBC, BMP 04/01/19 06:43 04/01/19 10:00 INR, PTT INR 0.95 (0.83-1.09) 03/26/19 06:00 Fibrinogen 359.0 mg/dL (238-498) 03/19/19 23:15
[2019-04-01] MEDS ORDERED: MIDAZOLAM IN 0.9 % SOD.CHLORID 1 MG/1 ML PLAST..BAG ONE (12:54)
[2019-04-01] MEDS ORDERED: fentaNYL CITRATE 250 MCG/5 ML VIAL ONE ×2 (12:55→21:59)
--- NOTE | 2019-04-01 13:00 | CONSULT ---
Consult Consult Specialty:: Endocrinology Referred by:: Bong Honeycutt MD Reason for Consultation:: Fluctuating blood sugar - History of Present Illness Chief Complaint: Abd pain History of Present Illness: This is a 48 y/o F with history of Type I IDDM, PE (on xarelto), frequent admissions for DKA, HTN, HLD, CVA with left-sided weakness, recent hospitalization at [facility] September 2018 for SBO was admitted to the hospital with c/ o abdominal pain. Patient was admitted for SBO but became febrile, hypotensive and tachycardic and was subsequently transferred for ICU care. Pt had exploratory laparotomy with small bowel resection for perforated viscus. Pt was extubated but subsequently developed respiratory failure and reintubated today. Pt referred for management of fluctuating blood sugar while was on SQ Insulin. 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 bowel surgery at [facility] 09/15 for SBO - Alcohol/Substance Use Hx Alcohol Use: No History of Substance Use: reports: None - Smoking History Smoking history: Current every day smoker Have you smoked in the past 12 months: Yes Aproximately how many cigarettes per day: 10 - Social History ADL: Independent Occupation: Unemployed History of Recent Travel: No Home Medications - Allergies Allergies/Adverse Reactions: Allergies Allergy/AdvReac Type Severity Reaction Status Date / Time No Known Allergies Allergy Verified 03/09/19 16:48 - Home Medications Home Medications: Ambulatory Orders Aspirin 81 mg PO DAILY #30 tab.chew 08/13/18 Atorvastatin Ca [Lipitor] 40 mg PO HS #30 tablet 08/13/18 Gabapentin 300 mg PO BID 12/23/18 Quetiapine Fumarate [Seroquel -] 25 mg PO BID 12/23/18 Insulin Sliding Scale [Novolog Vial Sliding Scale -] 1 vial SQ ACHS #600 units 12/25/18 Rivaroxaban [Xarelto] 15 mg PO BID #60 tablet 12/25/18 predniSONE [Deltasone -] 40 mg PO DAILY #30 tablet 12/25/18 traMADol HCL [Ultram -] 100 mg PO Q8H PRN #90 tablet MDD 6 12/25/18 Insulin Detemir [Levemir Flextouch] 12 unit SQ BID 01/26/19 Amoxicillin/Potassium Clav [Augmentin 875-125 Tablet] 1 each PO BID 03/07/19 HYDROmorphone [Dilaudid -] 4 mg PO Q6H PRN 03/07/19 Review of Systems Unable to obtain ROS, reason: Intubated Physical Exam Vital Signs: Vital Signs Temperature 99.2 F 04/01/19 10:00 Pulse Rate 106 H 04/01/19 10:00 Respiratory Rate 26 H 04/01/19 10:00 Blood Pressure 161/126 H 04/01/19 10:00 O2 Sat by Pulse Oximetry (%) 99 03/31/19 21:00 Constitutional: Yes: Moderate Distress Eyes: Yes: Conjunctiva Clear HENT: Yes: Atraumatic, Normocephalic Neck: Yes: Supple, Trachea Midline Cardiovascular: Yes: Regular Rate and Rhythm Respiratory: Yes: Regular Gastrointestinal: Yes: Soft Edema: No Neurological: Yes: Other (Intubated) Labs: CBC, BMP 04/01/19 06:43 04/01/19 10:00 Assessment/Plan AP: T1DM with acidosis: ?DKA ?Lactic acidosis/Sepsis s/p Cardiopulmonary Arrest R/o Anoxic Brain Injury Acute Hypoxic Respiratory Failure Perforated Small Bowel s/p ex-lap/RAYSHAWN/segmental SB resection Crohn's Disease Peritonitis +C diff Colitis Septic Shock/Lactic Acidosis h/o PE HTN h/o CVA Pt re-intubated today Iv hydration as necessary Start Insulin drip at 2 units/hr BGM Q one hour Adjust Insulin drip rate to maintain blood sugar between 120 to 180 Continue Insulin drip until acidosis resolves and pt is extuabated and able to tolerate oral feeding. Replace electrolytes as necessary Change IVF to D5 or D10 if necessary to maintain blood sugar between 120 to 180 while on Insulin drip. Continue antibiotics per ID Monitor urine output, creatinine Check lactate/beta hydroxybutyric acid Discussed with ICU housestaff.
--- NOTE | 2019-04-01 13:06 | PROC ---
Intubation - Intubation Reason for Intubation: Respiratory Failure Time of Intubation: 12:30 Intubation Method: orotracheal Blade used: Mac (3) Tube Size (cm): 7.5 Tube position @ lip (cm): 22 Tube position confirmed by: Direct visualization, CO2 detector, Breath sounds Breath Sounds after Intubation: equal Post Intubation Xray: Yes
[2019-04-01] MEDS: FENTANYL INJECTION 500 MCG in DEXTROSE 5%-WATER - 90 ML IVPB SCH (13:17)
[2019-04-01] MEDS ORDERED: INSULIN REGULAR 100 UNITS in SODIUM CHLORIDE 99 ML IVPB SCH ×2 (13:45→16:02)
[2019-04-01] MEDS ORDERED: FUROSEMIDE 40 MG/4 ML INJECTABLE VIAL ONE (15:23)
[2019-04-01] MEDS ORDERED: FUROSEMIDE 40 MG TABLET (FP) ONE (15:23)
[2019-04-01] MEDS ORDERED: KCL 10 MEQ IVPB 10 MEQ/100 ML INFUS.BAG IVPB SCH (16:15)
--- NOTE | 2019-04-01 16:17 | PN.GI ---
GI Progress Note Subjective: coverage for Dr Hu patient reintubated today because of respiratory distress and acidosis, diarrhea much improved compared to previous days, rectal bag empty - Objective Vital Signs: Vital Signs Temperature 99.2 F 04/01/19 15:00 Pulse Rate 107 H 04/01/19 15:00 Respiratory Rate 29 H 04/01/19 15:35 Blood Pressure 111/60 04/01/19 15:00 O2 Sat by Pulse Oximetry (%) 100 04/01/19 10:30 Constitutional: Other (--on vent) Eyes: Yes: Conjunctiva Clear Cardiovascular: Yes: Regular Rate and Rhythm Respiratory: Yes: CTA Bilaterally ...Palpate: Yes: Soft. No: Firm/Rigid, Guarding, Pulsatile Mass, Splenomegaly, Tenderness Labs: CBC, BMP 04/01/19 06:43 04/01/19 10:00 INR, PTT INR 0.95 (0.83-1.09) 03/26/19 06:00 Fibrinogen 359.0 mg/dL (238-498) 03/19/19 23:15 Problem List - Problems (1) Clostridium difficile diarrhea Assessment/Plan: --resolving R> continue Vancomycin comtinue supportive care Code(s): A04.72 - ENTEROCOLITIS D/T CLOSTRIDIUM DIFFICILE, NOT SPCF RECUR (2) ESBL (extended spectrum beta-lactamase) producing bacteria infection Code(s): A49.9 - BACTERIAL INFECTION, UNSPECIFIED; Z16.12 - EXTENDED SPECTRUM BETA LACTAMASE (ESBL) RESISTANCE (3) Septic shock Code(s): A41.9 - SEPSIS, UNSPECIFIED ORGANISM; R65.21 - SEVERE SEPSIS WITH SEPTIC SHOCK
[2019-04-01] MEDS: D5-1/2NS+30 MEQ KCL - 30 MEQ/1,000 ML INFUS.BAG IV SCH (16:40)
--- NOTE | 2019-04-01 16:42 | PN ---
Physical Exam: SUBJECTIVE: Patient seen and examined in the icu. non verbal. now intubated with agonal breathing. OBJECTIVE: Pt re-intubated today on iv hydration Started on insulin drip with bgm checks q 1 hr. per endocrinology, continue insulin drip until acidosis resolves and pt is extubated and able to tolerate oral feeding. Replace electrolytes as necessary. cmp q4. Change IVF to D5 or D10 if necessary to maintain blood sugar between 120 to 180 while on Insulin drip. Patient is a 48 year old female admitted for septic shock 08/01 to bowel perforation. she is s/p exp lap with resection of ilial perforation on 03/12. In the past she has had multiple admission for DKA. This hospitalization complicated with multiple episodes of respiratory failure, bacteremia and c- diff. she also had an episode of pulseless activity on 03/19/19 and was intubated after CPR performed. Vital Signs Period Temp Pulse Resp BP Sys/Rapp Pulse Ox Last 24 Hr 98.4 F-99.4 F 12-113 18-34 100-161/54-126 99-100 GENERAL: anasarca, intubated, agonal breathing. HEAD: Normal with no signs of trauma. EYES: left eye with a small area of fluid build up inside sclera. ENT: Ears normal, nares patent, oropharynx clear without exudates, moist mucous membranes. NECK: Trachea midline, full range of motion, supple. LUNGS: diminished to auscultation bilaterally, intubated again today. HEART: tachycardia 110s ABDOMEN: wound vac EXTREMITIES: anasacra NEUROLOGICAL: intubated Laboratory Results - last 24 hr 03/31/19 03/31/19 04/01/19 17:22 22:27 02:36 WBC RBC Hgb Hct MCV MCH MCHC RDW Plt Count MPV Absolute Neuts (auto) Neutrophils % Lymphocytes % Monocytes % Eosinophils % Basophils % Nucleated RBC % Anticoagulation Therapy Puncture Site ABG pH ABG pCO2 at Pt Temp ABG pO2 at Pt Temp ABG HCO3 ABG O2 Sat (Measured) ABG O2 Content ABG Base Excess Atul Test O2 Delivery Device Oxygen Flow Rate Vent Mode Vent Rate Mechanical Rate Pressure Support Vent Sodium Potassium Chloride Carbon Dioxide Anion Gap BUN Creatinine Est GFR (CKD-EPI)AfAm Est GFR (CKD-EPI)NonAf POC Glucometer 242 500 495 Random Glucose Lactic Acid Calcium Magnesium Total Bilirubin AST ALT Alkaline Phosphatase Total Protein Albumin Acetone, Qual 04/01/19 04/01/19 04/01/19 06:07 06:43 06:43 WBC 12.8 H RBC 3.43 L Hgb 9.4 L Hct 29.8 L D MCV 87.0 MCH 27.5 MCHC 31.6 L RDW 23.2 H Plt Count 691 H D MPV 7.5 Absolute Neuts (auto) 11.4 H Neutrophils % 88.8 H Lymphocytes % 5.8 L D Monocytes % 4.8 Eosinophils % 0.0 D Basophils % 0.6 Nucleated RBC % 0 Anticoagulation Therapy Puncture Site ABG pH ABG pCO2 at Pt Temp ABG pO2 at Pt Temp ABG HCO3 ABG O2 Sat (Measured) ABG O2 Content ABG Base Excess Atul Test O2 Delivery Device Oxygen Flow Rate Vent Mode Vent Rate Mechanical Rate Pressure Support Vent Sodium 149 H Potassium 3.4 L Chloride 112 H Carbon Dioxide 16 L Anion Gap 20 H BUN 15.4 Creatinine 0.5 L Est GFR (CKD-EPI)AfAm 131.72 Est GFR (CKD-EPI)NonAf 113.65 POC Glucometer 247 Random Glucose 254 H Lactic Acid Calcium 8.4 L Magnesium 2.2 Total Bilirubin 0.6 AST 27 ALT 17 Alkaline Phosphatase 174 H Total Protein 6.5 Albumin 2.1 L Acetone, Qual 04/01/19 04/01/19 04/01/19 08:27 08:50 10:00 WBC RBC Hgb Hct MCV MCH MCHC RDW Plt Count MPV Absolute Neuts (auto) Neutrophils % Lymphocytes % Monocytes % Eosinophils % Basophils % Nucleated RBC % Anticoagulation Therapy No Result Required. Puncture Site Right brachial ABG pH 7.32 L ABG pCO2 at Pt Temp 17.5 L ABG pO2 at Pt Temp 115 H ABG HCO3 8.8 L ABG O2 Sat (Measured) 97.7 ABG O2 Content 12.7 ABG Base Excess -15.9 L Atul Test Positive O2 Delivery Device Room air Oxygen Flow Rate 21% Vent Mode No Result Required. Vent Rate No Result Required. Mechanical Rate No Result Required. Pressure Support Vent No Result Required. Sodium 148 H Potassium 3.8 Chloride 112 H Carbon Dioxide 7 L Anion Gap 29 H BUN 17.2 Creatinine 0.6 Est GFR (CKD-EPI)AfAm 124.05 Est GFR (CKD-EPI)NonAf 107.03 POC Glucometer Random Glucose 488 H* Lactic Acid Calcium 8.1 L Magnesium Total Bilirubin AST ALT Alkaline Phosphatase Total Protein Albumin Acetone, Qual Positive moderate 2+ H 04/01/19 04/01/19 04/01/19 10:32 11:10 12:59 WBC RBC Hgb Hct MCV MCH MCHC RDW Plt Count MPV Absolute Neuts (auto) Neutrophils % Lymphocytes % Monocytes % Eosinophils % Basophils % Nucleated RBC % Anticoagulation Therapy No Result Required. Puncture Site Right radial ABG pH 7.08 L* ABG pCO2 at Pt Temp 13.9 L* ABG pO2 at Pt Temp 163 H ABG HCO3 4.0 L ABG O2 Sat (Measured) 97.5 ABG O2 Content 12.1 ABG Base Excess -24.8 L Atul Test Positive O2 Delivery Device No Result Required. Oxygen Flow Rate Yes Vent Mode No Result Required. Vent Rate No Result Required. Mechanical Rate No Result Required. Pressure Support Vent No Result Required. Sodium Potassium Chloride Carbon Dioxide Anion Gap BUN Creatinine Est GFR (CKD-EPI)AfAm Est GFR (CKD-EPI)NonAf POC Glucometer 440 Random Glucose Lactic Acid 2.4 H* Calcium Magnesium Total Bilirubin AST ALT Alkaline Phosphatase Total Protein Albumin Acetone, Qual 04/01/19 15:29 WBC RBC Hgb Hct MCV MCH MCHC RDW Plt Count MPV Absolute Neuts (auto) Neutrophils % Lymphocytes % Monocytes % Eosinophils % Basophils % Nucleated RBC % Anticoagulation Therapy Puncture Site ABG pH ABG pCO2 at Pt Temp ABG pO2 at Pt Temp ABG HCO3 ABG O2 Sat (Measured) ABG O2 Content ABG Base Excess Atul Test O2 Delivery Device Oxygen Flow Rate Vent Mode Vent Rate Mechanical Rate Pressure Support Vent Sodium Potassium Chloride Carbon Dioxide Anion Gap BUN Creatinine Est GFR (CKD-EPI)AfAm Est GFR (CKD-EPI)NonAf POC Glucometer 228 Random Glucose Lactic Acid Calcium Magnesium Total Bilirubin AST ALT Alkaline Phosphatase Total Protein Albumin Acetone, Qual Active Medications Generic Name Dose Route Start Last Admin Trade Name Freq PRN Reason Stop Dose Admin Acetaminophen 1,000 mg 03/29/19 16:17 03/31/19 03:13 Ofirmev Injection - IVPB 1,000 mg Q6H PRN Administration FEVER Amino Acids 30 ml 03/26/19 15:30 04/01/19 10:05 Prosource No Carb Liquid Pkt PO 30 ml DAILY [facility] Administration Chlorhexidine Gluconate 15 ml 03/29/19 10:00 04/01/19 10:05 Peridex - MM 15 ml BID [facility] Administration Dextrose 4 gm 03/28/19 23:06 Glucose Tablet - PO PRN PRN HYPOGLYCEMIA Enoxaparin Sodium 80 mg 04/01/19 11:15 Lovenox - SQ DAILY [facility] Daptomycin 400 mg/ Sodium 50 mls @ 50 mls/hr 03/27/19 23:00 03/31/19 23:16 Chloride IVPB 50 mls/hr DAILY@2300 [facility] Administration Protocol Fentanyl 500 mcg/ Dextrose 100 mls @ 10 mls/hr 04/01/19 12:00 04/01/19 13:17 IVPB 50 mcg/hr TITR [facility] 10 mls/hr Administration 50 MCG/HR Propofol 1,000,000 mcg in 100 mls @ 1.287 mls/hr 04/01/19 12:00 04/01/19 15: 18 Diprivan - IVPB Not Given TITR [facility] Protocol 5 MCG/KG/MIN Insulin Human Regular 100 100 mls @ 2.14 mls/hr 04/01/19 16:02 04/01/19 16:16 units/ Sodium Chloride IVPB 0.05 units/kg/hr TITR [facility] 2.14 mls/hr Administration Protocol 0.05 UNITS/KG/HR Potassium Chloride/Dextrose/Sod Cl 30 meq in 1,000 mls @ 75 mls/hr 04/01/19 16 :15 D5-1/2ns+30 Meq Kcl - IV ASDIR [facility] Potassium Chloride 10 meq in 100 mls @ 100 mls/hr 04/01/19 16:15 Potassium Chloride 10 Meq Premix Ivpb - IVPB 04/01/19 17:14 Q60M [facility] Ondansetron HCl 4 mg 03/11/19 20:31 03/14/19 05:07 Zofran Injection IVPUSH 4 mg Q6H PRN Administration NAUSEA AND/OR VOMITING Pantoprazole Sodium 40 mg 03/30/19 10:00 04/01/19 10:17 Protonix Iv IVPUSH 40 mg BID [facility] Administration Vancomycin HCl 125 mg 03/15/19 18:00 04/01/19 13:34 Vancomycin Oral Solution PO 125 mg Q6HPO [facility] Administration ASSESSMENT/PLAN: Problem List - Problems (1) DKA (diabetic ketoacidoses) Assessment/Plan: Started on insulin drip with bgm checks q 1 hr. per endocrinology, continue insulin drip until acidosis resolves and pt is extubated and able to tolerate oral feeding. Replace electrolytes as necessary. cmp q4. Change IVF to D5 or D10 if necessary to maintain blood sugar between 120 to 180 while on Insulin drip. Code(s): E13.10 - OTH DIABETES MELLITUS WITH KETOACIDOSIS WITHOUT COMA Qualifiers: Diabetes mellitus type: type 1 Diabetes mellitus complication detail: without coma Qualified Code(s): E10.10 - Type 1 diabetes mellitus with ketoacidosis without coma (2) Acute respiratory failure Assessment/Plan: respiratory failure, re-intubated today. appreciate ICU level of care Code(s): J96.00 - ACUTE RESPIRATORY FAILURE, UNSP W HYPOXIA OR HYPERCAPNIA (3) Perforated abdominal viscus Assessment/Plan: s/p Ex-lap/RAYSHAWN/partial SB and omental resection with anastomosis/washout on 03/12 general surgery following wound dihisecence noted at distal portion, vac in place dressing changes as per surgery on daptomycin per ID. Code(s): QQL0239 - (4) Abdominal pain Assessment/Plan: Patient is/p ex-lap/RAYSHAWN/partial SB and omental resection with anastomosis/ washout appreciate surgical and ID consultation Code(s): R10.9 - UNSPECIFIED ABDOMINAL PAIN Qualifiers: Abdominal location: generalized Qualified Code(s): R10.84 - Generalized abdominal pain (5) C. difficile diarrhea Assessment/Plan: vanco 125mg QID c/w rectal tube Code(s): A04.72 - ENTEROCOLITIS D/T CLOSTRIDIUM DIFFICILE, NOT SPCF RECUR (6) Diabetes Assessment/Plan: monitor bgms. on short acting novolog. Code(s): E11.9 - TYPE 2 DIABETES MELLITUS WITHOUT COMPLICATIONS (7) ESBL (extended spectrum beta-lactamase) producing bacteria infection Assessment/Plan: esbl in wound culture. maintain contact precautions. Code(s): A49.9 - BACTERIAL INFECTION, UNSPECIFIED; Z16.12 - EXTENDED SPECTRUM BETA LACTAMASE (ESBL) RESISTANCE (8) HTN (hypertension) Assessment/Plan: ICU monitoring with frequent checks Code(s): I10 - ESSENTIAL (PRIMARY) HYPERTENSION (9) Left-sided weakness Assessment/Plan: chronic left sided weakness. now with edema of both arms and anasarca Code(s): R53.1 - WEAKNESS (10) Acute Crohn's disease Assessment/Plan: lysis of adhesions, segmental resection of small intestinal perforation with side-side stapled anastomosis, abdominal washout, resection of portion of omentum. GI following. Code(s): K50.90 - CROHN'S DISEASE, UNSPECIFIED, WITHOUT COMPLICATIONS (11) Anemia Assessment/Plan: s/p 2 units of prbc. monitor cbc daily Code(s): D64.9 - ANEMIA, UNSPECIFIED (12) Respiratory failure Code(s): J96.90 - RESPIRATORY FAILURE, UNSP, UNSP W HYPOXIA OR HYPERCAPNIA (13) Prophylactic measure Assessment/Plan: NPO monitor electrolytes DVT on lovenox 110 Dispo requires ICU care full code Code(s): Z29.9 - ENCOUNTER FOR PROPHYLACTIC MEASURES, UNSPECIFIED Visit type - Emergency Visit Emergency Visit: Yes ED Registration Date: 03/09/19 Care time: The patient presented to the Emergency Department on the above date and was hospitalized for further evaluation of their emergent condition. - New Patient This patient is new to me today: No - Critical Care Critical Care patient: Yes Total Critical Care Time (in minutes): 45 Critical Care Statement: The care of this patient involved high complexity decision making to prevent further life threatening deterioration of the patient 's condition and/or to evaluate & treat vital organ system(s) failure or risk of failure.
--- NOTE | 2019-04-01 18:20 | PN ---
Progress Note, Physician Chief Complaint: Abdominal Pain History of Present Illness: 48yo female PMH HTN, CVA (left sided hemiparesis), HLD, IDDM, DKA resulting in multiple admissions, dysphagia, gastroparesis, esophageal stricture (EGD 02/14), c/diff (10/2018), SBO September 2018 (s/p SB resection at [facility] as per pt report) presented to [place] ED on the afternoon of 12/21 with complaints of N/V/D/ abd pain intermittently for years. She is clinically improved but can not yet bee weened. Continues to spike high fevers - Current Medication List Current Medications: Active Medications Acetaminophen (Ofirmev Injection -) 1,000 mg IVPB Q6H PRN PRN Reason: FEVER Last Admin: 03/31/19 03:13 Dose: 1,000 mg Amino Acids (Prosource No Carb Liquid Pkt) 30 ml PO DAILY [facility] Last Admin: 04/01/19 10:05 Dose: 30 ml Chlorhexidine Gluconate (Peridex -) 15 ml MM BID [facility] Last Admin: 04/01/19 10:05 Dose: 15 ml Dextrose (Glucose Tablet -) 4 gm PO PRN PRN PRN Reason: HYPOGLYCEMIA Enoxaparin Sodium (Lovenox -) 80 mg SQ DAILY [facility] Daptomycin 400 mg/ Sodium (Chloride) 50 mls @ 50 mls/hr IVPB DAILY@2300 [facility]; Protocol Last Admin: 03/31/19 23:16 Dose: 50 mls/hr Fentanyl 500 mcg/ Dextrose 100 mls @ 10 mls/hr IVPB TITR [facility] Last Admin: 04/01/19 13:17 Dose: 50 mcg/hr, 10 mls/hr Propofol (Diprivan -) 1,000,000 mcg in 100 mls @ 1.287 mls/hr IVPB TITR [facility]; Protocol Last Admin: 04/01/19 15:18 Dose: Not Given Insulin Human Regular 100 (units/ Sodium Chloride) 100 mls @ 2.14 mls/hr IVPB TITR [facility]; Protocol Last Admin: 04/01/19 16:16 Dose: 0.05 units/kg/hr, 2.14 mls/hr Potassium Chloride/Dextrose/Sod Cl (D5-1/2ns+30 Meq Kcl -) 30 meq in 1,000 mls @ 75 mls/hr IV ASDIR [facility] Last Admin: 04/01/19 16:40 Dose: 75 mls/hr Ondansetron HCl (Zofran Injection) 4 mg IVPUSH Q6H PRN PRN Reason: NAUSEA AND/OR VOMITING Last Admin: 03/14/19 05:07 Dose: 4 mg Pantoprazole Sodium (Protonix Iv) 40 mg IVPUSH BID [facility] Last Admin: 04/01/19 10:17 Dose: 40 mg Vancomycin HCl (Vancomycin Oral Solution) 125 mg PO Q6HPO [facility] Last Admin: 04/01/19 13:34 Dose: 125 mg - Objective Vital Signs: Vital Signs Temperature 99.2 F 04/01/19 15:00 Pulse Rate 107 H 04/01/19 15:00 Respiratory Rate 29 H 04/01/19 15:35 Blood Pressure 111/60 04/01/19 15:00 O2 Sat by Pulse Oximetry (%) 100 04/01/19 10:30 Vital Signs Period Temp Pulse Resp BP Sys/Rapp Pulse Ox Last 24 Hr 98.5 F-101.3 F 83-109 20-30 113-156/65-93 97-100 Intake & Output 04/09/19 04/10/19 04/10/19 23:59 07:59 15:59 Intake Total 1150 Output Total 200 600 Balance 950 -600 Weight 127 lb 1 oz Intake: IV 750 D5-Lr - 1,000 ml @ 75 mls 750 /hr IV ASDIR [facility] Rx#: [id number] IVPB 300 Tube Irrigant 100 Output: Drainage 200 Medial Abdomen 200 Urine 600 Lott 600 Other: Voiding Method Indwelling Catheter Bowel Movement No Yes Weight Measurement Method Built in [facility] Constitutional: Yes: No Distress, Calm, Cachectic Eyes: Yes: Conjunctiva Clear, EOM Intact HENT: Yes: Atraumatic, Normocephalic Neck: Yes: Supple, Trachea Midline Cardiovascular: Yes: Regular Rate and Rhythm Respiratory: Yes: Regular, Diminished, Mechanically Ventilated Gastrointestinal: Yes: Normal Bowel Sounds, Soft. No: Tenderness ...Rectal Exam: Yes: Deferred Genitourinary: Yes: Lott Present. No: CVA Tenderness - Left, CVA Tenderness - Right Breast(s): No: Nipple Inversion, Skin Changes Musculoskeletal: No: Muscle Pain, Muscle Weakness Extremities: No: Cool, Cyanosis Edema: Yes Edema: LUE: 2+, RUE: 2+, LLE: 2+, RLE: 2+ Peripheral Pulses WNL: Yes Peripheral Pulses: Left Radial: 2+, Right Radial: 2+, Left Doralis Pedis: 2+, Right Dorsalis Pedis: 2+, Left Femoral: 2+, Right Femoral: 2+ Wound/Incision: Yes: Clean/Dry, Unapproximated Neurological: Yes: Alert. No: Oriented Psychiatric: Yes: Alert. No: Oriented Labs: CBC, BMP 04/01/19 06:43 04/01/19 10:00 INR, PTT INR 0.95 (0.83-1.09) 03/26/19 06:00 Fibrinogen 359.0 mg/dL (238-498) 03/19/19 23:15 Problem List - Problems (1) Small bowel obstruction Assessment/Plan: 48yo female with MMP including SBO, chronic constipation, Gastroparesis and crohns disease presenting with Abdominal pain. She has several possible explanations for this pain. POD#20 Exp Lap and Segmental resection of small intestinal perforation. Poor saturation and hospital acquired infections ESBL and Cdiff. Intubated overnight. GIB now improved H&H following transfusion. respiratory status is improving. Monitored Setting ICU management VAC dressing changed, due / Antibiotics per ID Transfuse as need crohns management will follow This patient is critically ill. Time spent reviewing chart, examining patient, talking with providers and/or family and documentation is 35 minutes. Code(s): K56.609 - UNSP INTESTNL OBST, UNSP TO PARTIAL VERSUS COMPLETE OBST (2) Abdominal pain Code(s): R10.9 - UNSPECIFIED ABDOMINAL PAIN Qualifiers: Abdominal location: generalized Qualified Code(s): R10.84 - Generalized abdominal pain (3) Crohn's disease Code(s): K50.90 - CROHN'S DISEASE, UNSPECIFIED, WITHOUT COMPLICATIONS Qualifiers: Gastrointestinal tract location: small intestine Digestive disease complication type: with rectal bleeding Qualified Code(s): K50.011 - Crohn's disease of small intestine with rectal bleeding (4) DKA (diabetic ketoacidoses) Code(s): E13.10 - OTH DIABETES MELLITUS WITH KETOACIDOSIS WITHOUT COMA Qualifiers: Diabetes mellitus type: type 1 Diabetes mellitus complication detail: without coma Qualified Code(s): E10.10 - Type 1 diabetes mellitus with ketoacidosis without coma (5) Nausea & vomiting Code(s): R11.2 - NAUSEA WITH VOMITING, UNSPECIFIED Qualifiers: Vomiting type: cyclical vomiting Vomiting Intractability: intractable (6) Cerebrovascular accident (CVA) Code(s): I63.9 - CEREBRAL INFARCTION, UNSPECIFIED Qualifiers: CVA mechanism: unspecified Qualified Code(s): I63.9 - Cerebral infarction, unspecified
[2019-04-01 18:57] LABS: ARTERIAL BLD GAS O2 SATURATION 99.4 % (95-98); ARTERIAL BLOOD GAS BASE EXCESS -6.8 meq/l (-2-2); ARTERIAL BLOOD GAS PCO2 36.2 mmHg (35-45); ARTERIAL BLOOD GAS PO2 181 mmHg (80-100); ARTERIAL BLOOD GAS pH 7.32 (7.35-7.45)
[2019-04-01 18:58] LABS: ALLENS TEST POSITIVE
[2019-04-01] MEDS: MIDAZOLAM IN 0.9 % SOD.CHLORID 100 MG/100 ML PLAST..BAG IVPB SCH (20:00)
[2019-04-01 20:35] LABS: BLOOD UREA NITROGEN 17.9 mg/dL (7-18); CALCIUM 8.1 mg/dL (8.5-10.1); CREATININE 0.9 mg/dL (0.55-1.3)
[2019-04-01] MEDS ORDERED: PT OWN MED DRAWER 7, Y5N ONE (21:17)
--- NOTE | 2019-04-01 21:35 | PROC ---
Intubation - Intubation Reason for Intubation: Respiratory Failure Time of Intubation: 01:00 Intubation Method: orotracheal Blade used: Mac Tube Size (cm): 5.0 Tube position @ lip (cm): 21 Tube position confirmed by: Chest x-ray Breath Sounds after Intubation: equal Post Intubation Xray: Yes
--- NOTE | 2019-04-01 21:35 | PN ---
Physical Exam: SUBJECTIVE: Patient seen and examined at bedside in ICU. Pt is s/p extubation the day before. Pt off sedation and pressors. However unfortunately, she was subsequently intubated after rounds s/p being on HFNC and tachypneic with increased work of breathing. Pt had a central line placed today as well in the left IJV in the case that the pt requires pressor support. OBJECTIVE: Vital Signs Period Temp Pulse Resp BP Sys/Rapp Pulse Ox Last 24 Hr 98.4 F-99.2 F 12-113 21-34 100-161/53-126 100-100 GENERAL: The patient is awake off sedation, tachypneic NECK: supple. LUNGS: Breath sounds roncherous b/l HEART: tachcardic and regular rhythm, S1, S2 without murmur, rub or gallop. ABDOMEN: wound vac in place EXTREMITIES: less edema b/l. NEUROLOGICAL: tracks her eyes to your movement, but no speech, or response to commands. Pt seen moving toes and head. Laboratory Results - last 24 hr 03/31/19 04/01/19 04/01/19 22:27 02:36 06:07 WBC RBC Hgb Hct MCV MCH MCHC RDW Plt Count MPV Absolute Neuts (auto) Neutrophils % Lymphocytes % Monocytes % Eosinophils % Basophils % Nucleated RBC % Anticoagulation Therapy Puncture Site ABG pH ABG pCO2 at Pt Temp ABG pO2 at Pt Temp ABG HCO3 ABG O2 Sat (Measured) ABG O2 Content ABG Base Excess Atul Test O2 Delivery Device Oxygen Flow Rate Vent Mode Vent Rate Mechanical Rate Pressure Support Vent Sodium Potassium Chloride Carbon Dioxide Anion Gap BUN Creatinine Est GFR (CKD-EPI)AfAm Est GFR (CKD-EPI)NonAf POC Glucometer 274 495 247 Random Glucose Lactic Acid Calcium Magnesium Total Bilirubin AST ALT Alkaline Phosphatase Total Protein Albumin Acetone, Qual 04/01/19 04/01/19 04/01/19 06:43 06:43 08:27 WBC 12.8 H RBC 3.43 L Hgb 9.4 L Hct 29.8 L D MCV 87.0 MCH 27.5 MCHC 31.6 L RDW 23.2 H Plt Count 691 H D MPV 7.5 Absolute Neuts (auto) 11.4 H Neutrophils % 88.8 H Lymphocytes % 5.8 L D Monocytes % 4.8 Eosinophils % 0.0 D Basophils % 0.6 Nucleated RBC % 0 Anticoagulation Therapy Puncture Site ABG pH ABG pCO2 at Pt Temp ABG pO2 at Pt Temp ABG HCO3 ABG O2 Sat (Measured) ABG O2 Content ABG Base Excess Atul Test O2 Delivery Device Oxygen Flow Rate Vent Mode Vent Rate Mechanical Rate Pressure Support Vent Sodium 149 H Potassium 3.4 L Chloride 112 H Carbon Dioxide 16 L Anion Gap 20 H BUN 15.4 Creatinine 0.5 L Est GFR (CKD-EPI)AfAm 131.72 Est GFR (CKD-EPI)NonAf 113.65 POC Glucometer Random Glucose 254 H Lactic Acid Calcium 8.4 L Magnesium 2.2 Total Bilirubin 0.6 AST 27 ALT 17 Alkaline Phosphatase 174 H Total Protein 6.5 Albumin 2.1 L Acetone, Qual Positive moderate 2+ H 04/01/19 04/01/19 04/01/19 08:50 10:00 10:32 WBC RBC Hgb Hct MCV MCH MCHC RDW Plt Count MPV Absolute Neuts (auto) Neutrophils % Lymphocytes % Monocytes % Eosinophils % Basophils % Nucleated RBC % Anticoagulation Therapy No Result Required. Puncture Site Right brachial ABG pH 7.32 L ABG pCO2 at Pt Temp 17.5 L ABG pO2 at Pt Temp 115 H ABG HCO3 8.8 L ABG O2 Sat (Measured) 97.7 ABG O2 Content 12.7 ABG Base Excess -15.9 L Atul Test Positive O2 Delivery Device Room air Oxygen Flow Rate 21% Vent Mode No Result Required. Vent Rate No Result Required. Mechanical Rate No Result Required. Pressure Support Vent No Result Required. Sodium 148 H Potassium 3.8 Chloride 112 H Carbon Dioxide 7 L Anion Gap 29 H BUN 17.2 Creatinine 0.6 Est GFR (CKD-EPI)AfAm 124.05 Est GFR (CKD-EPI)NonAf 107.03 POC Glucometer 440 Random Glucose 488 H* Lactic Acid Calcium 8.1 L Magnesium Total Bilirubin AST ALT Alkaline Phosphatase Total Protein Albumin Acetone, Qual 04/01/19 04/01/19 04/01/19 11:10 12:59 15:29 WBC RBC Hgb Hct MCV MCH MCHC RDW Plt Count MPV Absolute Neuts (auto) Neutrophils % Lymphocytes % Monocytes % Eosinophils % Basophils % Nucleated RBC % Anticoagulation Therapy No Result Required. Puncture Site Right radial ABG pH 7.08 L* ABG pCO2 at Pt Temp 13.9 L* ABG pO2 at Pt Temp 163 H ABG HCO3 4.0 L ABG O2 Sat (Measured) 97.5 ABG O2 Content 12.1 ABG Base Excess -24.8 L Atul Test Positive O2 Delivery Device No Result Required. Oxygen Flow Rate Yes Vent Mode No Result Required. Vent Rate No Result Required. Mechanical Rate No Result Required. Pressure Support Vent No Result Required. Sodium Potassium Chloride Carbon Dioxide Anion Gap BUN Creatinine Est GFR (CKD-EPI)AfAm Est GFR (CKD-EPI)NonAf POC Glucometer 228 Random Glucose Lactic Acid 2.4 H* Calcium Magnesium Total Bilirubin AST ALT Alkaline Phosphatase Total Protein Albumin Acetone, Qual 04/01/19 04/01/19 04/01/19 17:05 18:21 18:40 WBC RBC Hgb Hct MCV MCH MCHC RDW Plt Count MPV Absolute Neuts (auto) Neutrophils % Lymphocytes % Monocytes % Eosinophils % Basophils % Nucleated RBC % Anticoagulation Therapy No Result Required. Puncture Site Right brachial ABG pH 7.32 L ABG pCO2 at Pt Temp 36.2 ABG pO2 at Pt Temp 181 H ABG HCO3 18.2 L ABG O2 Sat (Measured) 99.4 H ABG O2 Content 14.2 ABG Base Excess -6.8 L Atul Test Positive O2 Delivery Device Mech. vent. Oxygen Flow Rate 50% Vent Mode A/c Vent Rate 14 Mechanical Rate No Result Required. Pressure Support Vent 350 Sodium Potassium Chloride Carbon Dioxide Anion Gap BUN Creatinine Est GFR (CKD-EPI)AfAm Est GFR (CKD-EPI)NonAf POC Glucometer 238 160 Random Glucose Lactic Acid Calcium Magnesium Total Bilirubin AST ALT Alkaline Phosphatase Total Protein Albumin Acetone, Qual 04/01/19 04/01/19 04/01/19 19:21 20:00 20:14 WBC RBC Hgb Hct MCV MCH MCHC RDW Plt Count MPV Absolute Neuts (auto) Neutrophils % Lymphocytes % Monocytes % Eosinophils % Basophils % Nucleated RBC % Anticoagulation Therapy Puncture Site ABG pH ABG pCO2 at Pt Temp ABG pO2 at Pt Temp ABG HCO3 ABG O2 Sat (Measured) ABG O2 Content ABG Base Excess Atul Test O2 Delivery Device Oxygen Flow Rate Vent Mode Vent Rate Mechanical Rate Pressure Support Vent Sodium 154 H Potassium 3.0 L Chloride 116 H Carbon Dioxide 23 Anion Gap 15 BUN 17.9 Creatinine 0.9 Est GFR (CKD-EPI)AfAm 87.02 Est GFR (CKD-EPI)NonAf 75.08 POC Glucometer 118 110 Random Glucose 96 Lactic Acid Calcium 8.1 L Magnesium Total Bilirubin AST ALT Alkaline Phosphatase Total Protein Albumin Acetone, Qual Active Medications Generic Name Dose Route Start Last Admin Trade Name Freq PRN Reason Stop Dose Admin Acetaminophen 1,000 mg 03/29/19 16:17 03/31/19 03:13 Ofirmev Injection - IVPB 1,000 mg Q6H PRN Administration FEVER Amino Acids 30 ml 03/26/19 15:30 04/01/19 10:05 Prosource No Carb Liquid Pkt PO 30 ml DAILY [facility] Administration Chlorhexidine Gluconate 15 ml 03/29/19 10:00 04/01/19 10:05 Peridex - MM 15 ml BID [facility] Administration Dextrose 4 gm 03/28/19 23:06 Glucose Tablet - PO PRN PRN HYPOGLYCEMIA Enoxaparin Sodium 80 mg 04/01/19 11:15 Lovenox - SQ DAILY [facility] Daptomycin 400 mg/ Sodium 50 mls @ 50 mls/hr 03/27/19 23:00 03/31/19 23:16 Chloride IVPB 50 mls/hr DAILY@2300 [facility] Administration Protocol Fentanyl 500 mcg/ Dextrose 100 mls @ 10 mls/hr 04/01/19 12:00 04/01/19 13:17 IVPB 50 mcg/hr TITR [facility] 10 mls/hr Administration 50 MCG/HR Propofol 1,000,000 mcg in 100 mls @ 1.287 mls/hr 04/01/19 12:00 04/01/19 15: 18 Diprivan - IVPB Not Given TITR [facility] Protocol 5 MCG/KG/MIN Insulin Human Regular 100 100 mls @ 2.14 mls/hr 04/01/19 16:02 04/01/19 16:16 units/ Sodium Chloride IVPB 0.05 units/kg/hr TITR [facility] 2.14 mls/hr Administration Protocol 0.05 UNITS/KG/HR Potassium Chloride/Dextrose/Sod Cl 30 meq in 1,000 mls @ 75 mls/hr 04/01/19 16 :15 04/01/19 16:40 D5-1/2ns+30 Meq Kcl - IV 75 mls/hr ASDIR [facility] Administration Midazolam HCl 100 mg in 100 mls @ 1 mls/hr 04/01/19 20:00 Midazolam 100mg/100ml-0.9%Nacl IVPB TITR [facility] Protocol 1 MG/HR Potassium Chloride 10 meq in 100 mls @ 100 mls/hr 04/01/19 21:30 Potassium Chloride 10 Meq Premix Ivpb - IVPB 04/02/19 00:29 Q60M [facility] Ondansetron HCl 4 mg 03/11/19 20:31 03/14/19 05:07 Zofran Injection IVPUSH 4 mg Q6H PRN Administration NAUSEA AND/OR VOMITING Pantoprazole Sodium 40 mg 03/30/19 10:00 04/01/19 10:17 Protonix Iv IVPUSH 40 mg BID [facility] Administration Vancomycin HCl 125 mg 03/15/19 18:00 04/01/19 18:09 Vancomycin Oral Solution PO 125 mg Q6HPO [facility] Administration ASSESSMENT/PLAN: This is a 48F PMH IDDM, PE on xarelto, frequent DKA, HTN, HLD, CVA w/ left sided weakness, recent hospitalization at [facility] September 2018 admitted to ICU for SBO. Developed pneumoperitoneum s/p ex-lap. POD #16 Neuro - back on sedation - extubated yesterday, however reintubated today and back on sedation, versed, fentanyl drip. - Tylenol for pain/fever ctrl - dilaudid 1 mg q4h PRN for pain control CV - hx of transient a-fib with RVR - sinus tachy 100, ekg ordered to assess rythym - No longer hypotensive - Maintain MAP >65 - off pressors - central line no longer in place - continue monitoring urine output Respiratory - Lasix IV 40 today one time dose given - monitor resp status - HFOT tachypneic so intubated on AC. GI - Crohn's flair likely, pneumoperitoneum s/p ex-lap - GI recs appreciated continuing w/ C diff management - confirmed with surgery regarding CT abdomen and pelvis with contrast via NG tube and IV contrast to assess for a fluid collection/other cause of infection. - Antibiotics per ID c/w vanco, dapto - tube feeds d/c pivot to 20cc/hr, 50cc/hr free water. - CT abd negative for abscess but showing a subacute or chronic renal infarct, however pt is on 110 Lovenox SQ given hx of PE. ID-> C diff - c/w vanco for 1 week after other abx are d/c, c/w daptomycin - CT abd pelvis s/p negative for abscess - currently afebrile Endocrine-> DKA -insulin 0.05 unit drip initiated for having >250 glucose, pH <7.3, HCO3<15, with acetone in urine - BETA oh BUTYRATE pending - BGM's q FEN - Lytes in AM, replete PRN - Monitor I/Os - Monitor UrO, Cr PPx: Lovenox 80SQ, SCDs Dispo: continue ICU care Visit type - Emergency Visit Emergency Visit: Yes ED Registration Date: 03/09/19 Care time: The patient presented to the Emergency Department on the above date and was hospitalized for further evaluation of their emergent condition. - New Patient This patient is new to me today: No - Critical Care Critical Care patient: Yes Total Critical Care Time (in minutes): 40 Critical Care Statement: The care of this patient involved high complexity decision making to prevent further life threatening deterioration of the patient 's condition and/or to evaluate & treat vital organ system(s) failure or risk of failure. - Discharge Referral Referred to [facility] Med [facility] No ATTENDING PHYSICIAN STATEMENT I saw and evaluated the patient. I reviewed the resident's note and discussed the case with the resident. I agree with the resident's findings and plan as documented. SUBJECTIVE: OBJECTIVE: ASSESSMENT AND PLAN:
--- NOTE | 2019-04-01 21:35 | PN ---
Physical Exam: SUBJECTIVE: Patient seen and examined OBJECTIVE: Vital Signs Period Temp Pulse Resp BP Sys/Rapp Pulse Ox Last 24 Hr 98.4 F-99.2 F 12-113 21-34 100-161/53-126 100-100 GENERAL: The patient is awake, alert, and fully oriented, in no acute distress. HEAD: Normal with no signs of trauma. EYES: PERRL, extraocular movements intact, sclera anicteric, conjunctiva clear. No ptosis. ENT: Ears normal, nares patent, oropharynx clear without exudates, moist mucous membranes. NECK: Trachea midline, full range of motion, supple. LUNGS: Breath sounds equal, clear to auscultation bilaterally, no wheezes, no crackles, no accessory muscle use. HEART: Regular rate and rhythm, S1, S2 without murmur, rub or gallop. ABDOMEN: Soft, nontender, nondistended, normoactive bowel sounds, no guarding, no rebound, no hepatosplenomegaly, no masses. EXTREMITIES: 2+ pulses, warm, well-perfused, no edema. NEUROLOGICAL: Cranial nerves II through XII grossly intact. Normal speech, gait not observed. PSYCH: Normal mood, normal affect. SKIN: Warm, dry, normal turgor, no rashes or lesions noted Laboratory Results - last 24 hr 03/31/19 04/01/19 04/01/19 22:27 02:36 06:07 WBC RBC Hgb Hct MCV MCH MCHC RDW Plt Count MPV Absolute Neuts (auto) Neutrophils % Lymphocytes % Monocytes % Eosinophils % Basophils % Nucleated RBC % Anticoagulation Therapy Puncture Site ABG pH ABG pCO2 at Pt Temp ABG pO2 at Pt Temp ABG HCO3 ABG O2 Sat (Measured) ABG O2 Content ABG Base Excess Atul Test O2 Delivery Device Oxygen Flow Rate Vent Mode Vent Rate Mechanical Rate Pressure Support Vent Sodium Potassium Chloride Carbon Dioxide Anion Gap BUN Creatinine Est GFR (CKD-EPI)AfAm Est GFR (CKD-EPI)NonAf POC Glucometer 274 495 247 Random Glucose Lactic Acid Calcium Magnesium Total Bilirubin AST ALT Alkaline Phosphatase Total Protein Albumin Acetone, Qual 04/01/19 04/01/19 04/01/19 06:43 06:43 08:27 WBC 12.8 H RBC 3.43 L Hgb 9.4 L Hct 29.8 L D MCV 87.0 MCH 27.5 MCHC 31.6 L RDW 23.2 H Plt Count 691 H D MPV 7.5 Absolute Neuts (auto) 11.4 H Neutrophils % 88.8 H Lymphocytes % 5.8 L D Monocytes % 4.8 Eosinophils % 0.0 D Basophils % 0.6 Nucleated RBC % 0 Anticoagulation Therapy Puncture Site ABG pH ABG pCO2 at Pt Temp ABG pO2 at Pt Temp ABG HCO3 ABG O2 Sat (Measured) ABG O2 Content ABG Base Excess Atul Test O2 Delivery Device Oxygen Flow Rate Vent Mode Vent Rate Mechanical Rate Pressure Support Vent Sodium 149 H Potassium 3.4 L Chloride 112 H Carbon Dioxide 16 L Anion Gap 20 H BUN 15.4 Creatinine 0.5 L Est GFR (CKD-EPI)AfAm 131.72 Est GFR (CKD-EPI)NonAf 113.65 POC Glucometer Random Glucose 254 H Lactic Acid Calcium 8.4 L Magnesium 2.2 Total Bilirubin 0.6 AST 27 ALT 17 Alkaline Phosphatase 174 H Total Protein 6.5 Albumin 2.1 L Acetone, Qual Positive moderate 2+ H 04/01/19 04/01/19 04/01/19 08:50 10:00 10:32 WBC RBC Hgb Hct MCV MCH MCHC RDW Plt Count MPV Absolute Neuts (auto) Neutrophils % Lymphocytes % Monocytes % Eosinophils % Basophils % Nucleated RBC % Anticoagulation Therapy No Result Required. Puncture Site Right brachial ABG pH 7.32 L ABG pCO2 at Pt Temp 17.5 L ABG pO2 at Pt Temp 115 H ABG HCO3 8.8 L ABG O2 Sat (Measured) 97.7 ABG O2 Content 12.7 ABG Base Excess -15.9 L Atul Test Positive O2 Delivery Device Room air Oxygen Flow Rate 21% Vent Mode No Result Required. Vent Rate No Result Required. Mechanical Rate No Result Required. Pressure Support Vent No Result Required. Sodium 148 H Potassium 3.8 Chloride 112 H Carbon Dioxide 7 L Anion Gap 29 H BUN 17.2 Creatinine 0.6 Est GFR (CKD-EPI)AfAm 124.05 Est GFR (CKD-EPI)NonAf 107.03 POC Glucometer 440 Random Glucose 488 H* Lactic Acid Calcium 8.1 L Magnesium Total Bilirubin AST ALT Alkaline Phosphatase Total Protein Albumin Acetone, Qual 04/01/19 04/01/19 04/01/19 11:10 12:59 15:29 WBC RBC Hgb Hct MCV MCH MCHC RDW Plt Count MPV Absolute Neuts (auto) Neutrophils % Lymphocytes % Monocytes % Eosinophils % Basophils % Nucleated RBC % Anticoagulation Therapy No Result Required. Puncture Site Right radial ABG pH 7.08 L* ABG pCO2 at Pt Temp 13.9 L* ABG pO2 at Pt Temp 163 H ABG HCO3 4.0 L ABG O2 Sat (Measured) 97.5 ABG O2 Content 12.1 ABG Base Excess -24.8 L Atul Test Positive O2 Delivery Device No Result Required. Oxygen Flow Rate Yes Vent Mode No Result Required. Vent Rate No Result Required. Mechanical Rate No Result Required. Pressure Support Vent No Result Required. Sodium Potassium Chloride Carbon Dioxide Anion Gap BUN Creatinine Est GFR (CKD-EPI)AfAm Est GFR (CKD-EPI)NonAf POC Glucometer 228 Random Glucose Lactic Acid 2.4 H* Calcium Magnesium Total Bilirubin AST ALT Alkaline Phosphatase Total Protein Albumin Acetone, Qual 04/01/19 04/01/19 04/01/19 17:05 18:21 18:40 WBC RBC Hgb Hct MCV MCH MCHC RDW Plt Count MPV Absolute Neuts (auto) Neutrophils % Lymphocytes % Monocytes % Eosinophils % Basophils % Nucleated RBC % Anticoagulation Therapy No Result Required. Puncture Site Right brachial ABG pH 7.32 L ABG pCO2 at Pt Temp 36.2 ABG pO2 at Pt Temp 181 H ABG HCO3 18.2 L ABG O2 Sat (Measured) 99.4 H ABG O2 Content 14.2 ABG Base Excess -6.8 L Atul Test Positive O2 Delivery Device Mech. vent. Oxygen Flow Rate 50% Vent Mode A/c Vent Rate 14 Mechanical Rate No Result Required. Pressure Support Vent 350 Sodium Potassium Chloride Carbon Dioxide Anion Gap BUN Creatinine Est GFR (CKD-EPI)AfAm Est GFR (CKD-EPI)NonAf POC Glucometer 238 160 Random Glucose Lactic Acid Calcium Magnesium Total Bilirubin AST ALT Alkaline Phosphatase Total Protein Albumin Acetone, Qual 04/01/19 04/01/19 04/01/19 19:21 20:00 20:14 WBC RBC Hgb Hct MCV MCH MCHC RDW Plt Count MPV Absolute Neuts (auto) Neutrophils % Lymphocytes % Monocytes % Eosinophils % Basophils % Nucleated RBC % Anticoagulation Therapy Puncture Site ABG pH ABG pCO2 at Pt Temp ABG pO2 at Pt Temp ABG HCO3 ABG O2 Sat (Measured) ABG O2 Content ABG Base Excess Atul Test O2 Delivery Device Oxygen Flow Rate Vent Mode Vent Rate Mechanical Rate Pressure Support Vent Sodium 154 H Potassium 3.0 L Chloride 116 H Carbon Dioxide 23 Anion Gap 15 BUN 17.9 Creatinine 0.9 Est GFR (CKD-EPI)AfAm 87.02 Est GFR (CKD-EPI)NonAf 75.08 POC Glucometer 118 110 Random Glucose 96 Lactic Acid Calcium 8.1 L Magnesium Total Bilirubin AST ALT Alkaline Phosphatase Total Protein Albumin Acetone, Qual Active Medications Generic Name Dose Route Start Last Admin Trade Name Freq PRN Reason Stop Dose Admin Acetaminophen 1,000 mg 03/29/19 16:17 03/31/19 03:13 Ofirmev Injection - IVPB 1,000 mg Q6H PRN Administration FEVER Amino Acids 30 ml 03/26/19 15:30 04/01/19 10:05 Prosource No Carb Liquid Pkt PO 30 ml DAILY [facility] Administration Chlorhexidine Gluconate 15 ml 03/29/19 10:00 04/01/19 10:05 Peridex - MM 15 ml BID [facility] Administration Dextrose 4 gm 03/28/19 23:06 Glucose Tablet - PO PRN PRN HYPOGLYCEMIA Enoxaparin Sodium 80 mg 04/01/19 11:15 Lovenox - SQ DAILY [facility] Daptomycin 400 mg/ Sodium 50 mls @ 50 mls/hr 03/27/19 23:00 03/31/19 23:16 Chloride IVPB 50 mls/hr DAILY@2300 [facility] Administration Protocol Fentanyl 500 mcg/ Dextrose 100 mls @ 10 mls/hr 04/01/19 12:00 04/01/19 13:17 IVPB 50 mcg/hr TITR [facility] 10 mls/hr Administration 50 MCG/HR Propofol 1,000,000 mcg in 100 mls @ 1.287 mls/hr 04/01/19 12:00 04/01/19 15: 18 Diprivan - IVPB Not Given TITR [facility] Protocol 5 MCG/KG/MIN Insulin Human Regular 100 100 mls @ 2.14 mls/hr 04/01/19 16:02 04/01/19 16:16 units/ Sodium Chloride IVPB 0.05 units/kg/hr TITR [facility] 2.14 mls/hr Administration Protocol 0.05 UNITS/KG/HR Potassium Chloride/Dextrose/Sod Cl 30 meq in 1,000 mls @ 75 mls/hr 04/01/19 16 :15 04/01/19 16:40 D5-1/2ns+30 Meq Kcl - IV 75 mls/hr ASDIR [facility] Administration Midazolam HCl 100 mg in 100 mls @ 1 mls/hr 04/01/19 20:00 Midazolam 100mg/100ml-0.9%Nacl IVPB TITR [facility] Protocol 1 MG/HR Potassium Chloride 10 meq in 100 mls @ 100 mls/hr 04/01/19 21:30 Potassium Chloride 10 Meq Premix Ivpb - IVPB 04/02/19 00:29 Q60M [facility] Ondansetron HCl 4 mg 03/11/19 20:31 03/14/19 05:07 Zofran Injection IVPUSH 4 mg Q6H PRN Administration NAUSEA AND/OR VOMITING Pantoprazole Sodium 40 mg 03/30/19 10:00 04/01/19 10:17 Protonix Iv IVPUSH 40 mg BID [facility] Administration Vancomycin HCl 125 mg 03/15/19 18:00 04/01/19 18:09 Vancomycin Oral Solution PO 125 mg Q6HPO [facility] Administration ASSESSMENT/PLAN:
[2019-04-01] MEDS ORDERED: INSULIN (LEVEMIR) 100 UNITS/ML UNITS SQ SCH (22:00)
[2019-04-01] MEDS: DAPTOMYCIN 400 MG in SODIUM CHLORIDE 50 ML IVPB SCH (23:01)
[2019-04-02] MEDS ORDERED: PT OWN MED DRAWER 7, Y5N ONE (00:55)
[2019-04-02 02:02] LABS: BLOOD UREA NITROGEN 20.8 mg/dL (7-18); CALCIUM 7.8 mg/dL (8.5-10.1); CREATININE 0.9 mg/dL (0.55-1.3); POTASSIUM 3.2 mmol/L (3.5-5.1)
[2019-04-02] MEDS: VANCOMYCIN 250 MG/5 ML ORAL SOLUTION PO SCH ×4 (03:02→17:05)
[2019-04-02 06:27] LABS: ARTERIAL BLD GAS O2 SATURATION 99.1 % (95-98); ARTERIAL BLOOD GAS BASE EXCESS 0 meq/l (-2-2); ARTERIAL BLOOD GAS PCO2 39.5 mmHg (35-45); ARTERIAL BLOOD GAS PO2 132 mmHg (80-100)
[2019-04-02 06:29] LABS: ALLENS TEST POSITIVE
[2019-04-02 06:53] LABS: BASO % 0.7 % (0-2.0); EOS % 0.7 % (0-4.5); HEMATOCRIT 24.6 % (32.4-45.2); HEMOGLOBIN 8.2 GM/dL (10.7-15.3); LYMPH % 17.6 % (8-40); MCH 28.6 pg (25.7-33.7); MCHC 33.4 g/dl (32.0-36.0); MEAN CELL VOLUME 85.7 fl (80-96); MEAN PLT VOLUME 7.5 fl (7.5-11.1); MONO % 5.5 % (3.8-10.2); NEUT % 75.5 % (42.8-82.8); PLATELET COUNT 594 K/MM3 (134-434); RBC 2.87 M/mm3 (3.60-5.2); RDW 22.7 % (11.6-15.6)
[2019-04-02 07:40] LABS: ALBUMIN 1.7 g/dl (3.4-5.0); BILIRUBIN,TOTAL 0.2 mg/dL (0.2-1); BLOOD UREA NITROGEN 22.1 mg/dL (7-18); CALCIUM 7.9 mg/dL (8.5-10.1); CREATININE 0.9 mg/dL (0.55-1.3); MAGNESIUM 2.2 mg/dL (1.8-2.4); POTASSIUM 3.5 mmol/L (3.5-5.1); TOT PROT 5.5 g/dl (6.4-8.2)
[2019-04-02] MEDS ORDERED: INSULIN REGULAR HUMAN 100 UNITS/ML *VIAL ONE (09:46)
--- NOTE | 2019-04-02 09:56 | PN ---
Progress Note (short form) - Note Progress Note: Intubated, sedated Vital Signs Period Temp Pulse Resp BP Sys/Rapp Pulse Ox Last 24 Hr 97.8 F-99.2 F 74-107 14-34 100-161/53-126 100-100 PE: Intubated, sedated Neck: supple Lungs: CTA CVS: s1S2 Abd: Benign Neuro: intubated, sedated CMP Sodium 153 mmol/L (136-145) H 04/02/19 06:00 Potassium 3.5 mmol/L (3.5-5.1) 04/02/19 06:00 Chloride 120 mmol/L (98-107) H 04/02/19 06:00 Carbon Dioxide 25 mmol/L (21-32) 04/02/19 06:00 Anion Gap 9 MMOL/L (8-16) 04/02/19 06:00 BUN 22.1 mg/dL (7-18) H 04/02/19 06:00 Creatinine 0.9 mg/dL (0.55-1.3) 04/02/19 06:00 Est GFR (CKD-EPI)AfAm 87.02 04/02/19 06:00 Est GFR (CKD-EPI)NonAf 75.08 04/02/19 06:00 POC Glucometer 150 UNITS (80-120) 04/02/19 08:50 Random Glucose 152 mg/dL (74-106) H 04/02/19 06:00 Hemoglobin A1c % 9.8 % (4.2-6.3) H 03/10/19 07:20 Lactic Acid 1.8 mmol/L (0.4-2.0) 04/02/19 01:00 Calcium 7.9 mg/dL (8.5-10.1) L 04/02/19 06:00 Phosphorus 1.7 mg/dL (2.5-4.9) L 03/31/19 06:00 Magnesium 2.2 mg/dL (1.8-2.4) 04/02/19 06:00 Iron 125 ug/dL (50-175) 03/20/19 17:00 TIBC 124 ug/dL (250-450) L 03/20/19 17:00 Iron Saturation 100 % (17.5-39) H 03/20/19 17:00 Unsaturated IBC -1 ug/dL (200-275) L 03/20/19 17:00 Ferritin 220.2 ng/ml (8-388) 03/20/19 17:00 Total Bilirubin 0.2 mg/dL (0.2-1) 04/02/19 06:00 AST 22 U/L (15-37) 04/02/19 06:00 ALT 14 U/L (13-61) 04/02/19 06:00 Alkaline Phosphatase 151 U/L (45-117) H 04/02/19 06:00 Creatine Kinase 109 U/L (26-192) 03/19/19 15:40 Troponin I 1.94 ng/ml (0.00-0.05) H* 03/19/19 23:15 C-Reactive Protein 43.2 MG/DL (0.00-0.3) H 03/11/19 05:10 Total Protein 5.5 g/dl (6.4-8.2) L 04/02/19 06:00 Albumin 1.7 g/dl (3.4-5.0) L 04/02/19 06:00 Prealbumin 7.0 mg/dl (20-40) L 03/19/19 05:00 Lipase 58 U/L (73-393) L 03/09/19 17:55 Beta-Hydroxybutyrate 0.9 mg/dL (0.2-2.8) 03/22/19 05:10 Current Medications Generic Name Dose Route Start Last Admin Trade Name Freq PRN Reason Stop Dose Admin Acetaminophen 1,000 mg 03/29/19 16:17 03/31/19 03:13 Ofirmev Injection - IVPB 1,000 mg Q6H PRN Administration FEVER Amino Acids 30 ml 03/26/19 15:30 04/01/19 10:05 Prosource No Carb Liquid Pkt PO 30 ml DAILY [facility] Administration Chlorhexidine Gluconate 15 ml 03/29/19 10:00 04/01/19 21:45 Peridex - MM 15 ml BID [facility] Administration Dextrose 4 gm 03/28/19 23:06 Glucose Tablet - PO PRN PRN HYPOGLYCEMIA Enoxaparin Sodium 80 mg 04/01/19 11:15 Lovenox - SQ DAILY [facility] Daptomycin 400 mg/ Sodium 50 mls @ 50 mls/hr 03/27/19 23:00 04/01/19 23:01 Chloride IVPB 50 mls/hr DAILY@2300 [facility] Administration Protocol Fentanyl 500 mcg/ Dextrose 100 mls @ 10 mls/hr 04/01/19 12:00 04/01/19 13:17 IVPB 50 mcg/hr TITR [facility] 10 mls/hr Administration 50 MCG/HR Propofol 1,000,000 mcg in 100 mls @ 1.287 mls/hr 04/01/19 12:00 04/01/19 15: 18 Diprivan - IVPB Not Given TITR [facility] Protocol 5 MCG/KG/MIN Insulin Human Regular 100 100 mls @ 2.14 mls/hr 04/01/19 16:02 04/02/19 01:00 units/ Sodium Chloride IVPB 0.02 units/kg/hr TITR [facility] 1 mls/hr Titration Protocol 0.05 UNITS/KG/HR Potassium Chloride/Dextrose/Sod Cl 30 meq in 1,000 mls @ 75 mls/hr 04/01/19 16 :15 04/01/19 16:40 D5-1/2ns+30 Meq Kcl - IV 75 mls/hr ASDIR [facility] Administration Midazolam HCl 100 mg in 100 mls @ 1 mls/hr 04/01/19 20:00 04/01/19 20:00 Midazolam 100mg/100ml-0.9%Nacl IVPB 5 mg/hr TITR [facility] 5 mls/hr Administration Protocol 1 MG/HR Ondansetron HCl 4 mg 03/11/19 20:31 03/14/19 05:07 Zofran Injection IVPUSH 4 mg Q6H PRN Administration NAUSEA AND/OR VOMITING Pantoprazole Sodium 40 mg 03/30/19 10:00 04/01/19 21:45 Protonix Iv IVPUSH 40 mg BID [facility] Administration Vancomycin HCl 125 mg 03/15/19 18:00 04/02/19 06:00 Vancomycin Oral Solution PO 125 mg Q6HPO [facility] Administration AP: T1DM with acidosis: Acidosis resolved s/p Cardiopulmonary Arrest R/o Anoxic Brain Injury Acute Hypoxic Respiratory Failure Perforated Small Bowel s/p ex-lap/RAYSHAWN/segmental SB resection Crohn's Disease Peritonitis +C diff Colitis Septic Shock/Lactic Acidosis h/o PE HTN h/o CVA Pt re-intubated Iv hydration as necessary Continue Insulin drip BGM Q one hour Adjust Insulin drip rate to maintain blood sugar between 120 to 180 Continue Insulin drip until pt is extuabated and able to tolerate oral feeding. Replace electrolytes as necessary Change IVF to D5 or D10 if necessary to maintain blood sugar between 120 to 180 while on Insulin drip. Continue antibiotics per ID Monitor urine output, creatinine Please recall once pt is able to tolerate oral feeding and is to be started on SQ Insulin
[2019-04-02] MEDS: CHLORHEXIDINE GLUCONATE 0.12% 15ML CUP MM SCH ×2 (10:23→21:20)
[2019-04-02] MEDS: AMINO ACIDS/PROTEIN HYDROLYS 30 ML LIQUID.PKT PO SCH (10:24)
[2019-04-02] MEDS: PANTOPRAZOLE SODIUM 40 MG VIAL IVPUSH SCH ×2 (10:24→21:20)
[2019-04-02] MEDS: ENOXAPARIN NA (PORCINE) 80 MG/0.8 ML DISP.SYRIN SQ SCH (10:24)
[2019-04-02] MEDS: D5-1/2NS+30 MEQ KCL - 30 MEQ/1,000 ML INFUS.BAG IV SCH (10:25)
--- NOTE | 2019-04-02 10:56 | PN ---
Teaching Attending Note Name of Resident: Howie Chavis ATTENDING PHYSICIAN STATEMENT I saw and evaluated the patient. I reviewed the resident's note and discussed the case with the resident. I agree with the resident's findings and plan as documented. SUBJECTIVE: Patient seen and examined in the ICU. Remains intubated on AC Mode of vent. No pressors. Sedated. Intake & Output 03/30/19 03/31/19 04/01/19 04/02/19 23:59 23:59 23:59 23:59 Intake Total 7935 945 3932 1802 Output Total 3185 1360 2505 650 Balance -2070 -3120 -1291 1152 Weight 116 lb 8 oz 119 lb 6.4 oz 94 lb 9.6 oz 97 lb 5 oz Last Vital Signs Temp Pulse Resp BP Pulse Ox 98.3 F 90 24 H 120/65 100 04/02/19 06:00 04/02/19 08:39 04/02/19 08:37 04/02/19 06:00 04/02/19 08:39 Active Medications Acetaminophen (Ofirmev Injection -) 1,000 mg IVPB Q6H PRN PRN Reason: FEVER Last Admin: 03/31/19 03:13 Dose: 1,000 mg Amino Acids (Prosource No Carb Liquid Pkt) 30 ml PO DAILY [facility] Last Admin: 04/02/19 10:24 Dose: 30 ml Chlorhexidine Gluconate (Peridex -) 15 ml MM BID [facility] Last Admin: 04/02/19 10:23 Dose: 15 ml Dextrose (Glucose Tablet -) 4 gm PO PRN PRN PRN Reason: HYPOGLYCEMIA Enoxaparin Sodium (Lovenox -) 80 mg SQ DAILY [facility] Last Admin: 04/02/19 10:24 Dose: 80 mg Daptomycin 400 mg/ Sodium (Chloride) 50 mls @ 50 mls/hr IVPB DAILY@2300 [facility]; Protocol Last Admin: 04/01/19 23:01 Dose: 50 mls/hr Fentanyl 500 mcg/ Dextrose 100 mls @ 10 mls/hr IVPB TITR [facility] Last Admin: 04/01/19 13:17 Dose: 50 mcg/hr, 10 mls/hr Propofol (Diprivan -) 1,000,000 mcg in 100 mls @ 1.287 mls/hr IVPB TITR [facility]; Protocol Last Admin: 04/01/19 15:18 Dose: Not Given Insulin Human Regular 100 (units/ Sodium Chloride) 100 mls @ 2.14 mls/hr IVPB TITR [facility]; Protocol Last Titration: 04/02/19 07:00 Dose: 0.04 units/kg/hr, 2 mls/hr Potassium Chloride/Dextrose/Sod Cl (D5-1/2ns+30 Meq Kcl -) 30 meq in 1,000 mls @ 75 mls/hr IV ASDIR [facility] Last Admin: 04/02/19 10:25 Dose: 75 mls/hr Midazolam HCl (Midazolam 100mg/100ml-0.9%Nacl) 100 mg in 100 mls @ 1 mls/hr IVPB TITR [facility]; Protocol Last Admin: 04/01/19 20:00 Dose: 5 mg/hr, 5 mls/hr Ondansetron HCl (Zofran Injection) 4 mg IVPUSH Q6H PRN PRN Reason: NAUSEA AND/OR VOMITING Last Admin: 03/14/19 05:07 Dose: 4 mg Pantoprazole Sodium (Protonix Iv) 40 mg IVPUSH BID [facility] Last Admin: 04/02/19 10:24 Dose: 40 mg Vancomycin HCl (Vancomycin Oral Solution) 125 mg PO Q6HPO [facility] Last Admin: 04/02/19 06:00 Dose: 125 mg OBJECTIVE: Gen: Intubated and sedated Heart: RRR Lung: scattered rhonchi Abd: soft, nontender, +wound vac Ext: + edema Laboratory Results - last 24 hr 04/01/19 04/01/19 04/01/19 08:27 10:00 11:10 WBC RBC Hgb Hct MCV MCH MCHC RDW Plt Count MPV Absolute Neuts (auto) Neutrophils % Lymphocytes % Monocytes % Eosinophils % Basophils % Nucleated RBC % Anticoagulation Therapy No Result Required. Puncture Site Right radial ABG pH 7.08 L* ABG pCO2 at Pt Temp 13.9 L* ABG pO2 at Pt Temp 163 H ABG HCO3 4.0 L ABG O2 Sat (Measured) 97.5 ABG O2 Content 12.1 ABG Base Excess -24.8 L Atul Test Positive O2 Delivery Device No Result Required. Oxygen Flow Rate Yes Vent Mode No Result Required. Vent Rate No Result Required. Mechanical Rate No Result Required. PEEP Pressure Support Vent No Result Required. Sodium 148 H Potassium 3.8 Chloride 112 H Carbon Dioxide 7 L Anion Gap 29 H BUN 17.2 Creatinine 0.6 Est GFR (CKD-EPI)AfAm 124.05 Est GFR (CKD-EPI)NonAf 107.03 POC Glucometer Random Glucose 488 H* Lactic Acid Calcium 8.1 L Magnesium Total Bilirubin AST ALT Alkaline Phosphatase Total Protein Albumin Acetone, Qual Positive moderate 2+ H 04/01/19 04/01/19 04/01/19 12:59 15:29 17:05 WBC RBC Hgb Hct MCV MCH MCHC RDW Plt Count MPV Absolute Neuts (auto) Neutrophils % Lymphocytes % Monocytes % Eosinophils % Basophils % Nucleated RBC % Anticoagulation Therapy Puncture Site ABG pH ABG pCO2 at Pt Temp ABG pO2 at Pt Temp ABG HCO3 ABG O2 Sat (Measured) ABG O2 Content ABG Base Excess Atul Test O2 Delivery Device Oxygen Flow Rate Vent Mode Vent Rate Mechanical Rate PEEP Pressure Support Vent Sodium Potassium Chloride Carbon Dioxide Anion Gap BUN Creatinine Est GFR (CKD-EPI)AfAm Est GFR (CKD-EPI)NonAf POC Glucometer 228 238 Random Glucose Lactic Acid 2.4 H* Calcium Magnesium Total Bilirubin AST ALT Alkaline Phosphatase Total Protein Albumin Acetone, Qual 04/01/19 04/01/19 04/01/19 18:21 18:40 19:21 WBC RBC Hgb Hct MCV MCH MCHC RDW Plt Count MPV Absolute Neuts (auto) Neutrophils % Lymphocytes % Monocytes % Eosinophils % Basophils % Nucleated RBC % Anticoagulation Therapy No Result Required. Puncture Site Right brachial ABG pH 7.32 L ABG pCO2 at Pt Temp 36.2 ABG pO2 at Pt Temp 181 H ABG HCO3 18.2 L ABG O2 Sat (Measured) 99.4 H ABG O2 Content 14.2 ABG Base Excess -6.8 L Atul Test Positive O2 Delivery Device Mech. vent. Oxygen Flow Rate 50% Vent Mode A/c Vent Rate 14 Mechanical Rate No Result Required. PEEP Pressure Support Vent 350 Sodium Potassium Chloride Carbon Dioxide Anion Gap BUN Creatinine Est GFR (CKD-EPI)AfAm Est GFR (CKD-EPI)NonAf POC Glucometer 160 118 Random Glucose Lactic Acid Calcium Magnesium Total Bilirubin AST ALT Alkaline Phosphatase Total Protein Albumin Acetone, Qual 04/01/19 04/01/19 04/01/19 20:00 20:14 21:55 WBC RBC Hgb Hct MCV MCH MCHC RDW Plt Count MPV Absolute Neuts (auto) Neutrophils % Lymphocytes % Monocytes % Eosinophils % Basophils % Nucleated RBC % Anticoagulation Therapy Puncture Site ABG pH ABG pCO2 at Pt Temp ABG pO2 at Pt Temp ABG HCO3 ABG O2 Sat (Measured) ABG O2 Content ABG Base Excess Atul Test O2 Delivery Device Oxygen Flow Rate Vent Mode Vent Rate Mechanical Rate PEEP Pressure Support Vent Sodium 154 H Potassium 3.0 L Chloride 116 H Carbon Dioxide 23 Anion Gap 15 BUN 17.9 Creatinine 0.9 Est GFR (CKD-EPI)AfAm 87.02 Est GFR (CKD-EPI)NonAf 75.08 POC Glucometer 110 176 Random Glucose 96 Lactic Acid Calcium 8.1 L Magnesium Total Bilirubin AST ALT Alkaline Phosphatase Total Protein Albumin Acetone, Qual 04/02/19 04/02/19 04/02/19 00:47 01:00 01:00 WBC RBC Hgb Hct MCV MCH MCHC RDW Plt Count MPV Absolute Neuts (auto) Neutrophils % Lymphocytes % Monocytes % Eosinophils % Basophils % Nucleated RBC % Anticoagulation Therapy Puncture Site ABG pH ABG pCO2 at Pt Temp ABG pO2 at Pt Temp ABG HCO3 ABG O2 Sat (Measured) ABG O2 Content ABG Base Excess Atul Test O2 Delivery Device Oxygen Flow Rate Vent Mode Vent Rate Mechanical Rate PEEP Pressure Support Vent Sodium 155 H Potassium 3.2 L Chloride 120 H Carbon Dioxide 25 Anion Gap 9 BUN 20.8 H Creatinine 0.9 Est GFR (CKD-EPI)AfAm 87.02 Est GFR (CKD-EPI)NonAf 75.08 POC Glucometer 82 Random Glucose 78 Lactic Acid 1.8 Calcium 7.8 L Magnesium Total Bilirubin AST ALT Alkaline Phosphatase Total Protein Albumin Acetone, Qual 04/02/19 04/02/19 04/02/19 02:08 03:06 04:19 WBC RBC Hgb Hct MCV MCH MCHC RDW Plt Count MPV Absolute Neuts (auto) Neutrophils % Lymphocytes % Monocytes % Eosinophils % Basophils % Nucleated RBC % Anticoagulation Therapy Puncture Site ABG pH ABG pCO2 at Pt Temp ABG pO2 at Pt Temp ABG HCO3 ABG O2 Sat (Measured) ABG O2 Content ABG Base Excess Atul Test O2 Delivery Device Oxygen Flow Rate Vent Mode Vent Rate Mechanical Rate PEEP Pressure Support Vent Sodium Potassium Chloride Carbon Dioxide Anion Gap BUN Creatinine Est GFR (CKD-EPI)AfAm Est GFR (CKD-EPI)NonAf POC Glucometer 117 150 142 Random Glucose Lactic Acid Calcium Magnesium Total Bilirubin AST ALT Alkaline Phosphatase Total Protein Albumin Acetone, Qual 04/02/19 04/02/19 04/02/19 05:30 05:32 06:00 WBC 11.0 H RBC 2.87 L Hgb 8.2 L Hct 24.6 L D MCV 85.7 MCH 28.6 MCHC 33.4 RDW 22.7 H Plt Count 594 H MPV 7.5 Absolute Neuts (auto) 8.3 H Neutrophils % 75.5 Lymphocytes % 17.6 D Monocytes % 5.5 Eosinophils % 0.7 D Basophils % 0.7 Nucleated RBC % 0 Anticoagulation Therapy Puncture Site ABG pH ABG pCO2 at Pt Temp ABG pO2 at Pt Temp ABG HCO3 ABG O2 Sat (Measured) ABG O2 Content ABG Base Excess Atul Test O2 Delivery Device Oxygen Flow Rate Vent Mode Vent Rate Mechanical Rate PEEP Pressure Support Vent Sodium 153 H Potassium 3.5 Chloride 120 H Carbon Dioxide 25 Anion Gap 9 BUN 22.1 H Creatinine 0.9 Est GFR (CKD-EPI)AfAm 87.02 Est GFR (CKD-EPI)NonAf 75.08 POC Glucometer 146 Random Glucose 152 H Lactic Acid Calcium 7.9 L Magnesium 2.2 Total Bilirubin 0.2 AST 22 ALT 14 Alkaline Phosphatase 151 H Total Protein 5.5 L Albumin 1.7 L Acetone, Qual 04/02/19 04/02/19 04/02/19 06:05 07:06 08:50 WBC RBC Hgb Hct MCV MCH MCHC RDW Plt Count MPV Absolute Neuts (auto) Neutrophils % Lymphocytes % Monocytes % Eosinophils % Basophils % Nucleated RBC % Anticoagulation Therapy No Result Required. Puncture Site Left radial ABG pH 7.40 ABG pCO2 at Pt Temp 39.5 ABG pO2 at Pt Temp 132 H ABG HCO3 24.2 ABG O2 Sat (Measured) 99.1 H ABG O2 Content 11.9 ABG Base Excess 0 Atul Test Positive O2 Delivery Device Mech vent Oxygen Flow Rate 50 Vent Mode A/c Vent Rate 14 Mechanical Rate No Result Required. PEEP 5.0 Pressure Support Vent 350 Sodium Potassium Chloride Carbon Dioxide Anion Gap BUN Creatinine Est GFR (CKD-EPI)AfAm Est GFR (CKD-EPI)NonAf POC Glucometer 219 150 Random Glucose Lactic Acid Calcium Magnesium Total Bilirubin AST ALT Alkaline Phosphatase Total Protein Albumin Acetone, Qual 04/02/19 10:30 WBC RBC Hgb Hct MCV MCH MCHC RDW Plt Count MPV Absolute Neuts (auto) Neutrophils % Lymphocytes % Monocytes % Eosinophils % Basophils % Nucleated RBC % Anticoagulation Therapy Puncture Site ABG pH ABG pCO2 at Pt Temp ABG pO2 at Pt Temp ABG HCO3 ABG O2 Sat (Measured) ABG O2 Content ABG Base Excess Atul Test O2 Delivery Device Oxygen Flow Rate Vent Mode Vent Rate Mechanical Rate PEEP Pressure Support Vent Sodium Potassium Chloride Carbon Dioxide Anion Gap BUN Creatinine Est GFR (CKD-EPI)AfAm Est GFR (CKD-EPI)NonAf POC Glucometer 118 Random Glucose Lactic Acid Calcium Magnesium Total Bilirubin AST ALT Alkaline Phosphatase Total Protein Albumin Acetone, Qual ASSESSMENT AND PLAN: s/p Cardiopulmonary Arrest r/o Anoxic Brain Injury Acute Hypoxic Respiratory Failure Perforated Small Bowel s/p ex-lap/RAYSHAWN/segmental SB resection Crohn's Disease Peritonitis +C diff Colitis Septic Shock Lactic Acidosis Volume Overload h/o PE HTN DM Hyperlipidemia Anemia Thrombocytopenia h/o CVA - Will need Tracheostomy - continue antibiotics per ID - Daily assessment for lasix - monitor urine output, creatinine - replete lytes - free water - off pressors, maintain MAP > 65 - continue anticoagulation - DVT/GI prophylaxis - Restart enteral feeds - continue ICU monitoring Dr Otero Critical care time spent in reviewing chart, evaluating patient and formulating plan 35 min
[2019-04-02] MEDS ORDERED: fentaNYL CITRATE 250 MCG/5 ML VIAL ONE ×2 (11:01→20:55)
[2019-04-02] MEDS: INSULIN SLIDING SCALE (NOVOLOG) 1 VIAL SQ SCH ×3 (11:11→18:38)
[2019-04-02] MEDS: FENTANYL INJECTION 500 MCG in DEXTROSE 5%-WATER - 90 ML IVPB SCH ×2 (11:12→20:58)
[2019-04-02] MEDS: PROPOFOL 1,000,000 MCG/100 ML VIAL IVPB SCH (12:06)
--- NOTE | 2019-04-02 12:20 | PN ---
Progress Note, Physician History of Present Illness: patient stable on vent sedated - Current Medication List Current Medications: Active Medications Acetaminophen (Ofirmev Injection -) 1,000 mg IVPB Q6H PRN PRN Reason: FEVER Last Admin: 03/31/19 03:13 Dose: 1,000 mg Amino Acids (Prosource No Carb Liquid Pkt) 30 ml PO DAILY [facility] Last Admin: 04/02/19 10:24 Dose: 30 ml Chlorhexidine Gluconate (Peridex -) 15 ml MM BID [facility] Last Admin: 04/02/19 10:23 Dose: 15 ml Dextrose (Glucose Tablet -) 4 gm PO PRN PRN PRN Reason: HYPOGLYCEMIA Enoxaparin Sodium (Lovenox -) 80 mg SQ DAILY [facility] Last Admin: 04/02/19 10:24 Dose: 80 mg Daptomycin 400 mg/ Sodium (Chloride) 50 mls @ 50 mls/hr IVPB DAILY@2300 [facility]; Protocol Last Admin: 04/01/19 23:01 Dose: 50 mls/hr Fentanyl 500 mcg/ Dextrose 100 mls @ 10 mls/hr IVPB TITR [facility] Last Admin: 04/02/19 11:12 Dose: 50 mcg/hr, 10 mls/hr Propofol (Diprivan -) 1,000,000 mcg in 100 mls @ 1.287 mls/hr IVPB TITR [facility]; Protocol Last Admin: 04/01/19 15:18 Dose: Not Given Potassium Chloride/Dextrose/Sod Cl (D5-1/2ns+30 Meq Kcl -) 30 meq in 1,000 mls @ 75 mls/hr IV ASDIR [facility] Last Admin: 04/02/19 10:25 Dose: 75 mls/hr Midazolam HCl (Midazolam 100mg/100ml-0.9%Nacl) 100 mg in 100 mls @ 1 mls/hr IVPB TITR [facility]; Protocol Last Admin: 04/01/19 20:00 Dose: 5 mg/hr, 5 mls/hr Insulin Aspart (Novolog Vial Sliding Scale -) 1 vial SQ Q4H [facility]; Protocol Last Admin: 04/02/19 11:11 Dose: Not Given Ondansetron HCl (Zofran Injection) 4 mg IVPUSH Q6H PRN PRN Reason: NAUSEA AND/OR VOMITING Last Admin: 03/14/19 05:07 Dose: 4 mg Pantoprazole Sodium (Protonix Iv) 40 mg IVPUSH BID [facility] Last Admin: 04/02/19 10:24 Dose: 40 mg Vancomycin HCl (Vancomycin Oral Solution) 125 mg PO Q6HPO [facility] Last Admin: 04/02/19 11:12 Dose: 125 mg - Objective Vital Signs: Vital Signs Temperature 97.4 F L 04/02/19 10:00 Pulse Rate 99 H 04/02/19 12:00 Respiratory Rate 27 H 04/02/19 12:00 Blood Pressure 116/61 04/02/19 12:00 O2 Sat by Pulse Oximetry (%) 100 04/02/19 08:39 Constitutional: Yes: No Distress, Calm Cardiovascular: Yes: S1, S2 Respiratory: Yes: Intubated, Mechanically Ventilated Gastrointestinal: Yes: Normal Bowel Sounds, Soft Musculoskeletal: Yes: WNL Extremities: Yes: WNL Neurological: Yes: Other Labs: CBC, BMP 04/02/19 05:30 04/02/19 06:00 INR, PTT INR 0.95 (0.83-1.09) 03/26/19 06:00 Fibrinogen 359.0 mg/dL (238-498) 03/19/19 23:15 Assessment/Plan blem List - Problems (1) Diabetes Code(s): E11.9 - TYPE 2 DIABETES MELLITUS WITHOUT COMPLICATIONS (2) HLD (hyperlipidemia) Code(s): E78.5 - HYPERLIPIDEMIA, UNSPECIFIED (3) HTN (hypertension) Code(s): I10 - ESSENTIAL (PRIMARY) HYPERTENSION (4) Crohn's disease Code(s): K50.90 - CROHN'S DISEASE, UNSPECIFIED, WITHOUT COMPLICATIONS Qualifiers: Gastrointestinal tract location: small intestine Digestive disease complication type: with rectal bleeding Qualified Code(s): K50.011 - Crohn's disease of small intestine with rectal bleeding (5) Cerebrovascular accident (CVA) Code(s): I63.9 - CEREBRAL INFARCTION, UNSPECIFIED Qualifiers: CVA mechanism: unspecified Qualified Code(s): I63.9 - Cerebral infarction, unspecified (6) Diabetes mellitus, insulin dependent (IDDM), uncontrolled Code(s): E10.65 - TYPE 1 DIABETES MELLITUS WITH HYPERGLYCEMIA Assessment/Plan 48 y.o. female with PMH of uncontrolled IDDM and DKA, Crohn's disease on prednisone, CVA, PE, HTN, HLD presenting with abdominal pain Acute Respiratory failure on MV/sedation s/p cardiopulmonary arrest Sepsis Fever SB perforation s/p Ex-lap/RAYSHAWN/partial SB and omental resection with anastomosis/ washout Peritonitis : klebsiella/Enterococcus isolated C diff colitis Crohn's disease IDDM Hx of multiple DKA Hx of CVA Hx of PE HTN HLD plan continue vent support nutrition continue abx if patient continues to be afebrile will consider deescalating all cx results noted close watch cc 40 min
--- NOTE | 2019-04-02 14:09 | PN ---
Physical Exam: SUBJECTIVE: Patient seen and examined, remains intubated with labored breathing. OBJECTIVE: Patient is a 48 year old female admitted for septic shock 2/ to bowel perforation. she is s/p exp lap with resection of ilial perforation on 03/12. In the past she has had multiple admission for DKA. This hospitalization complicated with multiple episodes of respiratory failure, bacteremia and c- diff. she also had an episode of pulseless activity on 03/19/19 and was intubated after CPR performed. Vital Signs Period Temp Pulse Resp BP Sys/Rapp Pulse Ox Last 24 Hr 97.4 F-99.2 F 74-107 14-30 102-129/53-81 100-100 GENERAL: anasarca, intubated, agonal breathing. HEAD: Normal with no signs of trauma. EYES: left eye with a small area of fluid build up inside sclera. ENT: Ears normal, nares patent, oropharynx clear without exudates, moist mucous membranes. NECK: Trachea midline, full range of motion, supple. LUNGS: diminished to auscultation bilaterally, intubated again today. HEART: tachycardia 110s ABDOMEN: wound vac EXTREMITIES: anasacra NEUROLOGICAL: intubated Laboratory Results - last 24 hr 04/01/19 04/01/19 04/01/19 12:59 15:29 17:05 WBC RBC Hgb Hct MCV MCH MCHC RDW Plt Count MPV Absolute Neuts (auto) Neutrophils % Lymphocytes % Monocytes % Eosinophils % Basophils % Nucleated RBC % Anticoagulation Therapy Puncture Site ABG pH ABG pCO2 at Pt Temp ABG pO2 at Pt Temp ABG HCO3 ABG O2 Sat (Measured) ABG O2 Content ABG Base Excess Atul Test O2 Delivery Device Oxygen Flow Rate Vent Mode Vent Rate Mechanical Rate PEEP Pressure Support Vent Sodium Potassium Chloride Carbon Dioxide Anion Gap BUN Creatinine Est GFR (CKD-EPI)AfAm Est GFR (CKD-EPI)NonAf POC Glucometer 228 238 Random Glucose Lactic Acid 2.4 H* Calcium Magnesium Total Bilirubin AST ALT Alkaline Phosphatase Total Protein Albumin 04/01/19 04/01/19 04/01/19 18:21 18:40 19:21 WBC RBC Hgb Hct MCV MCH MCHC RDW Plt Count MPV Absolute Neuts (auto) Neutrophils % Lymphocytes % Monocytes % Eosinophils % Basophils % Nucleated RBC % Anticoagulation Therapy No Result Required. Puncture Site Right brachial ABG pH 7.32 L ABG pCO2 at Pt Temp 36.2 ABG pO2 at Pt Temp 181 H ABG HCO3 18.2 L ABG O2 Sat (Measured) 99.4 H ABG O2 Content 14.2 ABG Base Excess -6.8 L Atul Test Positive O2 Delivery Device Mech. vent. Oxygen Flow Rate 50% Vent Mode A/c Vent Rate 14 Mechanical Rate No Result Required. PEEP Pressure Support Vent 350 Sodium Potassium Chloride Carbon Dioxide Anion Gap BUN Creatinine Est GFR (CKD-EPI)AfAm Est GFR (CKD-EPI)NonAf POC Glucometer 160 118 Random Glucose Lactic Acid Calcium Magnesium Total Bilirubin AST ALT Alkaline Phosphatase Total Protein Albumin 04/01/19 04/01/19 04/01/19 20:00 20:14 21:55 WBC RBC Hgb Hct MCV MCH MCHC RDW Plt Count MPV Absolute Neuts (auto) Neutrophils % Lymphocytes % Monocytes % Eosinophils % Basophils % Nucleated RBC % Anticoagulation Therapy Puncture Site ABG pH ABG pCO2 at Pt Temp ABG pO2 at Pt Temp ABG HCO3 ABG O2 Sat (Measured) ABG O2 Content ABG Base Excess Atul Test O2 Delivery Device Oxygen Flow Rate Vent Mode Vent Rate Mechanical Rate PEEP Pressure Support Vent Sodium 154 H Potassium 3.0 L Chloride 116 H Carbon Dioxide 23 Anion Gap 15 BUN 17.9 Creatinine 0.9 Est GFR (CKD-EPI)AfAm 87.02 Est GFR (CKD-EPI)NonAf 75.08 POC Glucometer 110 176 Random Glucose 96 Lactic Acid Calcium 8.1 L Magnesium Total Bilirubin AST ALT Alkaline Phosphatase Total Protein Albumin 04/02/19 04/02/19 04/02/19 00:47 01:00 01:00 WBC RBC Hgb Hct MCV MCH MCHC RDW Plt Count MPV Absolute Neuts (auto) Neutrophils % Lymphocytes % Monocytes % Eosinophils % Basophils % Nucleated RBC % Anticoagulation Therapy Puncture Site ABG pH ABG pCO2 at Pt Temp ABG pO2 at Pt Temp ABG HCO3 ABG O2 Sat (Measured) ABG O2 Content ABG Base Excess Atul Test O2 Delivery Device Oxygen Flow Rate Vent Mode Vent Rate Mechanical Rate PEEP Pressure Support Vent Sodium 155 H Potassium 3.2 L Chloride 120 H Carbon Dioxide 25 Anion Gap 9 BUN 20.8 H Creatinine 0.9 Est GFR (CKD-EPI)AfAm 87.02 Est GFR (CKD-EPI)NonAf 75.08 POC Glucometer 82 Random Glucose 78 Lactic Acid 1.8 Calcium 7.8 L Magnesium Total Bilirubin AST ALT Alkaline Phosphatase Total Protein Albumin 04/02/19 04/02/19 04/02/19 02:08 03:06 04:19 WBC RBC Hgb Hct MCV MCH MCHC RDW Plt Count MPV Absolute Neuts (auto) Neutrophils % Lymphocytes % Monocytes % Eosinophils % Basophils % Nucleated RBC % Anticoagulation Therapy Puncture Site ABG pH ABG pCO2 at Pt Temp ABG pO2 at Pt Temp ABG HCO3 ABG O2 Sat (Measured) ABG O2 Content ABG Base Excess Atul Test O2 Delivery Device Oxygen Flow Rate Vent Mode Vent Rate Mechanical Rate PEEP Pressure Support Vent Sodium Potassium Chloride Carbon Dioxide Anion Gap BUN Creatinine Est GFR (CKD-EPI)AfAm Est GFR (CKD-EPI)NonAf POC Glucometer 117 150 142 Random Glucose Lactic Acid Calcium Magnesium Total Bilirubin AST ALT Alkaline Phosphatase Total Protein Albumin 04/02/19 04/02/19 04/02/19 05:30 05:32 06:00 WBC 11.0 H RBC 2.87 L Hgb 8.2 L Hct 24.6 L D MCV 85.7 MCH 28.6 MCHC 33.4 RDW 22.7 H Plt Count 594 H MPV 7.5 Absolute Neuts (auto) 8.3 H Neutrophils % 75.5 Lymphocytes % 17.6 D Monocytes % 5.5 Eosinophils % 0.7 D Basophils % 0.7 Nucleated RBC % 0 Anticoagulation Therapy Puncture Site ABG pH ABG pCO2 at Pt Temp ABG pO2 at Pt Temp ABG HCO3 ABG O2 Sat (Measured) ABG O2 Content ABG Base Excess Atul Test O2 Delivery Device Oxygen Flow Rate Vent Mode Vent Rate Mechanical Rate PEEP Pressure Support Vent Sodium 153 H Potassium 3.5 Chloride 120 H Carbon Dioxide 25 Anion Gap 9 BUN 22.1 H Creatinine 0.9 Est GFR (CKD-EPI)AfAm 87.02 Est GFR (CKD-EPI)NonAf 75.08 POC Glucometer 146 Random Glucose 152 H Lactic Acid Calcium 7.9 L Magnesium 2.2 Total Bilirubin 0.2 AST 22 ALT 14 Alkaline Phosphatase 151 H Total Protein 5.5 L Albumin 1.7 L 04/02/19 04/02/19 04/02/19 06:05 07:06 08:50 WBC RBC Hgb Hct MCV MCH MCHC RDW Plt Count MPV Absolute Neuts (auto) Neutrophils % Lymphocytes % Monocytes % Eosinophils % Basophils % Nucleated RBC % Anticoagulation Therapy No Result Required. Puncture Site Left radial ABG pH 7.40 ABG pCO2 at Pt Temp 39.5 ABG pO2 at Pt Temp 132 H ABG HCO3 24.2 ABG O2 Sat (Measured) 99.1 H ABG O2 Content 11.9 ABG Base Excess 0 Atul Test Positive O2 Delivery Device Mech vent Oxygen Flow Rate 50 Vent Mode A/c Vent Rate 14 Mechanical Rate No Result Required. PEEP 5.0 Pressure Support Vent 350 Sodium Potassium Chloride Carbon Dioxide Anion Gap BUN Creatinine Est GFR (CKD-EPI)AfAm Est GFR (CKD-EPI)NonAf POC Glucometer 219 150 Random Glucose Lactic Acid Calcium Magnesium Total Bilirubin AST ALT Alkaline Phosphatase Total Protein Albumin 04/02/19 10:30 WBC RBC Hgb Hct MCV MCH MCHC RDW Plt Count MPV Absolute Neuts (auto) Neutrophils % Lymphocytes % Monocytes % Eosinophils % Basophils % Nucleated RBC % Anticoagulation Therapy Puncture Site ABG pH ABG pCO2 at Pt Temp ABG pO2 at Pt Temp ABG HCO3 ABG O2 Sat (Measured) ABG O2 Content ABG Base Excess Atul Test O2 Delivery Device Oxygen Flow Rate Vent Mode Vent Rate Mechanical Rate PEEP Pressure Support Vent Sodium Potassium Chloride Carbon Dioxide Anion Gap BUN Creatinine Est GFR (CKD-EPI)AfAm Est GFR (CKD-EPI)NonAf POC Glucometer 118 Random Glucose Lactic Acid Calcium Magnesium Total Bilirubin AST ALT Alkaline Phosphatase Total Protein Albumin Active Medications Generic Name Dose Route Start Last Admin Trade Name Freq PRN Reason Stop Dose Admin Acetaminophen 1,000 mg 03/29/19 16:17 03/31/19 03:13 Ofirmev Injection - IVPB 1,000 mg Q6H PRN Administration FEVER Amino Acids 30 ml 03/26/19 15:30 04/02/19 10:24 Prosource No Carb Liquid Pkt PO 30 ml DAILY [facility] Administration Chlorhexidine Gluconate 15 ml 03/29/19 10:00 04/02/19 10:23 Peridex - MM 15 ml BID [facility] Administration Dextrose 4 gm 03/28/19 23:06 Glucose Tablet - PO PRN PRN HYPOGLYCEMIA Enoxaparin Sodium 80 mg 04/01/19 11:15 04/02/19 10:24 Lovenox - SQ 80 mg DAILY [facility] Administration Daptomycin 400 mg/ Sodium 50 mls @ 50 mls/hr 03/27/19 23:00 04/01/19 23:01 Chloride IVPB 50 mls/hr DAILY@2300 [facility] Administration Protocol Fentanyl 500 mcg/ Dextrose 100 mls @ 10 mls/hr 04/01/19 12:00 04/02/19 11:12 IVPB 50 mcg/hr TITR [facility] 10 mls/hr Administration 50 MCG/HR Propofol 1,000,000 mcg in 100 mls @ 1.287 mls/hr 04/01/19 12:00 04/01/19 15: 18 Diprivan - IVPB Not Given TITR [facility] Protocol 5 MCG/KG/MIN Potassium Chloride/Dextrose/Sod Cl 30 meq in 1,000 mls @ 75 mls/hr 04/01/19 16 :15 04/02/19 10:25 D5-1/2ns+30 Meq Kcl - IV 75 mls/hr ASDIR [facility] Administration Midazolam HCl 100 mg in 100 mls @ 1 mls/hr 04/01/19 20:00 04/01/19 20:00 Midazolam 100mg/100ml-0.9%Nacl IVPB 5 mg/hr TITR [facility] 5 mls/hr Administration Protocol 1 MG/HR Insulin Aspart 1 vial 04/02/19 11:00 04/02/19 11:11 Novolog Vial Sliding Scale - SQ Not Given Q4H [facility] Protocol Ondansetron HCl 4 mg 03/11/19 20:31 03/14/19 05:07 Zofran Injection IVPUSH 4 mg Q6H PRN Administration NAUSEA AND/OR VOMITING Pantoprazole Sodium 40 mg 03/30/19 10:00 04/02/19 10:24 Protonix Iv IVPUSH 40 mg BID [facility] Administration Vancomycin HCl 125 mg 03/15/19 18:00 04/02/19 11:12 Vancomycin Oral Solution PO 125 mg Q6HPO [facility] Administration ASSESSMENT/PLAN: Problem List - Problems (1) DKA (diabetic ketoacidoses) Assessment/Plan: insulin d/cd, now on long acting insulin with frequent bgm checks. anion gap now closed. Code(s): E13.10 - OTH DIABETES MELLITUS WITH KETOACIDOSIS WITHOUT COMA Qualifiers: Diabetes mellitus type: type 1 Diabetes mellitus complication detail: without coma Qualified Code(s): E10.10 - Type 1 diabetes mellitus with ketoacidosis without coma (2) Acute respiratory failure Assessment/Plan: respiratory failure, intubated and sedated on fentanyl and versed appreciate ICU level of care Code(s): J96.00 - ACUTE RESPIRATORY FAILURE, UNSP W HYPOXIA OR HYPERCAPNIA (3) Perforated abdominal viscus Assessment/Plan: s/p Ex-lap/RAYSHAWN/partial SB and omental resection with anastomosis/washout on 03/12 general surgery following wound dihisecence noted at distal portion, vac in place dressing changes as per surgery on daptomycin per ID. Code(s): CEA7942 - (4) Abdominal pain Assessment/Plan: Patient is/p ex-lap/RAYSHAWN/partial SB and omental resection with anastomosis/ washout appreciate surgical and ID consultation Code(s): R10.9 - UNSPECIFIED ABDOMINAL PAIN Qualifiers: Abdominal location: generalized Qualified Code(s): R10.84 - Generalized abdominal pain (5) C. difficile diarrhea Assessment/Plan: vanco 125mg QID c/w rectal tube Code(s): A04.72 - ENTEROCOLITIS D/T CLOSTRIDIUM DIFFICILE, NOT SPCF RECUR (6) Diabetes Assessment/Plan: monitor bgms. on short acting novolog. Code(s): E11.9 - TYPE 2 DIABETES MELLITUS WITHOUT COMPLICATIONS (7) ESBL (extended spectrum beta-lactamase) producing bacteria infection Assessment/Plan: esbl in wound culture. maintain contact precautions. Code(s): A49.9 - BACTERIAL INFECTION, UNSPECIFIED; Z16.12 - EXTENDED SPECTRUM BETA LACTAMASE (ESBL) RESISTANCE (8) HTN (hypertension) Assessment/Plan: ICU monitoring with frequent checks Code(s): I10 - ESSENTIAL (PRIMARY) HYPERTENSION (9) Left-sided weakness Assessment/Plan: chronic left sided weakness. now with edema of both arms and anasarca Code(s): R53.1 - WEAKNESS (10) Acute Crohn's disease Assessment/Plan: lysis of adhesions, segmental resection of small intestinal perforation with side-side stapled anastomosis, abdominal washout, resection of portion of omentum. GI following. Code(s): K50.90 - CROHN'S DISEASE, UNSPECIFIED, WITHOUT COMPLICATIONS (11) Anemia Assessment/Plan: s/p 2 units of prbc. monitor cbc daily Code(s): D64.9 - ANEMIA, UNSPECIFIED (12) Respiratory failure Code(s): J96.90 - RESPIRATORY FAILURE, UNSP, UNSP W HYPOXIA OR HYPERCAPNIA (13) Prophylactic measure Assessment/Plan: NPO monitor electrolytes DVT on lovenox 110 Dispo requires ICU care full code Code(s): Z29.9 - ENCOUNTER FOR PROPHYLACTIC MEASURES, UNSPECIFIED Visit type - Emergency Visit Emergency Visit: Yes ED Registration Date: 03/09/19 Care time: The patient presented to the Emergency Department on the above date and was hospitalized for further evaluation of their emergent condition. - New Patient This patient is new to me today: No - Critical Care Critical Care patient: Yes Total Critical Care Time (in minutes): 45 Critical Care Statement: The care of this patient involved high complexity decision making to prevent further life threatening deterioration of the patient 's condition and/or to evaluate & treat vital organ system(s) failure or risk of failure.
[2019-04-02] MEDS: LACTATED RINGERS SOLUTION 1,000 ML/1,000 ML INFUS.BAG IV SCH (15:05)
--- NOTE | 2019-04-02 16:48 | PN ---
Physical Exam: SUBJECTIVE: Patient seen and examinedin ICU OBJECTIVE: Vital Signs Period Temp Pulse Resp BP Sys/Rapp Pulse Ox Last 24 Hr 97.4 F-98.5 F 74-106 14-33 102-129/55-81 97-100 GENERAL: The patient is intubated on sedation NECK: supple. LUNGS: Breath sounds roncherous b/l HEART: tachcardic and regular rhythm, S1, S2 without murmur, rub or gallop. ABDOMEN: wound vac in place EXTREMITIES: less edema b/l. NEUROLOGICAL: sedated Laboratory Results - last 24 hr 04/01/19 04/01/19 04/01/19 17:05 18:21 18:40 WBC RBC Hgb Hct MCV MCH MCHC RDW Plt Count MPV Absolute Neuts (auto) Neutrophils % Lymphocytes % Monocytes % Eosinophils % Basophils % Nucleated RBC % Anticoagulation Therapy No Result Required. Puncture Site Right brachial ABG pH 7.32 L ABG pCO2 at Pt Temp 36.2 ABG pO2 at Pt Temp 181 H ABG HCO3 18.2 L ABG O2 Sat (Measured) 99.4 H ABG O2 Content 14.2 ABG Base Excess -6.8 L Atul Test Positive O2 Delivery Device Mech. vent. Oxygen Flow Rate 50% Vent Mode A/c Vent Rate 14 Mechanical Rate No Result Required. PEEP Pressure Support Vent 350 Sodium Potassium Chloride Carbon Dioxide Anion Gap BUN Creatinine Est GFR (CKD-EPI)AfAm Est GFR (CKD-EPI)NonAf POC Glucometer 238 160 Random Glucose Lactic Acid Calcium Magnesium Total Bilirubin AST ALT Alkaline Phosphatase Total Protein Albumin 04/01/19 04/01/19 04/01/19 19:21 20:00 20:14 WBC RBC Hgb Hct MCV MCH MCHC RDW Plt Count MPV Absolute Neuts (auto) Neutrophils % Lymphocytes % Monocytes % Eosinophils % Basophils % Nucleated RBC % Anticoagulation Therapy Puncture Site ABG pH ABG pCO2 at Pt Temp ABG pO2 at Pt Temp ABG HCO3 ABG O2 Sat (Measured) ABG O2 Content ABG Base Excess Atul Test O2 Delivery Device Oxygen Flow Rate Vent Mode Vent Rate Mechanical Rate PEEP Pressure Support Vent Sodium 154 H Potassium 3.0 L Chloride 116 H Carbon Dioxide 23 Anion Gap 15 BUN 17.9 Creatinine 0.9 Est GFR (CKD-EPI)AfAm 87.02 Est GFR (CKD-EPI)NonAf 75.08 POC Glucometer 118 110 Random Glucose 96 Lactic Acid Calcium 8.1 L Magnesium Total Bilirubin AST ALT Alkaline Phosphatase Total Protein Albumin 04/01/19 04/02/19 04/02/19 21:55 00:47 01:00 WBC RBC Hgb Hct MCV MCH MCHC RDW Plt Count MPV Absolute Neuts (auto) Neutrophils % Lymphocytes % Monocytes % Eosinophils % Basophils % Nucleated RBC % Anticoagulation Therapy Puncture Site ABG pH ABG pCO2 at Pt Temp ABG pO2 at Pt Temp ABG HCO3 ABG O2 Sat (Measured) ABG O2 Content ABG Base Excess Atul Test O2 Delivery Device Oxygen Flow Rate Vent Mode Vent Rate Mechanical Rate PEEP Pressure Support Vent Sodium Potassium Chloride Carbon Dioxide Anion Gap BUN Creatinine Est GFR (CKD-EPI)AfAm Est GFR (CKD-EPI)NonAf POC Glucometer 176 82 Random Glucose Lactic Acid 1.8 Calcium Magnesium Total Bilirubin AST ALT Alkaline Phosphatase Total Protein Albumin 04/02/19 04/02/19 04/02/19 01:00 02:08 03:06 WBC RBC Hgb Hct MCV MCH MCHC RDW Plt Count MPV Absolute Neuts (auto) Neutrophils % Lymphocytes % Monocytes % Eosinophils % Basophils % Nucleated RBC % Anticoagulation Therapy Puncture Site ABG pH ABG pCO2 at Pt Temp ABG pO2 at Pt Temp ABG HCO3 ABG O2 Sat (Measured) ABG O2 Content ABG Base Excess Atul Test O2 Delivery Device Oxygen Flow Rate Vent Mode Vent Rate Mechanical Rate PEEP Pressure Support Vent Sodium 155 H Potassium 3.2 L Chloride 120 H Carbon Dioxide 25 Anion Gap 9 BUN 20.8 H Creatinine 0.9 Est GFR (CKD-EPI)AfAm 87.02 Est GFR (CKD-EPI)NonAf 75.08 POC Glucometer 117 150 Random Glucose 78 Lactic Acid Calcium 7.8 L Magnesium Total Bilirubin AST ALT Alkaline Phosphatase Total Protein Albumin 04/02/19 04/02/19 04/02/19 04:19 05:30 05:32 WBC 11.0 H RBC 2.87 L Hgb 8.2 L Hct 24.6 L D MCV 85.7 MCH 28.6 MCHC 33.4 RDW 22.7 H Plt Count 594 H MPV 7.5 Absolute Neuts (auto) 8.3 H Neutrophils % 75.5 Lymphocytes % 17.6 D Monocytes % 5.5 Eosinophils % 0.7 D Basophils % 0.7 Nucleated RBC % 0 Anticoagulation Therapy Puncture Site ABG pH ABG pCO2 at Pt Temp ABG pO2 at Pt Temp ABG HCO3 ABG O2 Sat (Measured) ABG O2 Content ABG Base Excess Atul Test O2 Delivery Device Oxygen Flow Rate Vent Mode Vent Rate Mechanical Rate PEEP Pressure Support Vent Sodium Potassium Chloride Carbon Dioxide Anion Gap BUN Creatinine Est GFR (CKD-EPI)AfAm Est GFR (CKD-EPI)NonAf POC Glucometer 142 146 Random Glucose Lactic Acid Calcium Magnesium Total Bilirubin AST ALT Alkaline Phosphatase Total Protein Albumin 04/02/19 04/02/19 04/02/19 06:00 06:05 07:06 WBC RBC Hgb Hct MCV MCH MCHC RDW Plt Count MPV Absolute Neuts (auto) Neutrophils % Lymphocytes % Monocytes % Eosinophils % Basophils % Nucleated RBC % Anticoagulation Therapy No Result Required. Puncture Site Left radial ABG pH 7.40 ABG pCO2 at Pt Temp 39.5 ABG pO2 at Pt Temp 132 H ABG HCO3 24.2 ABG O2 Sat (Measured) 99.1 H ABG O2 Content 11.9 ABG Base Excess 0 Atul Test Positive O2 Delivery Device Mech vent Oxygen Flow Rate 50 Vent Mode A/c Vent Rate 14 Mechanical Rate No Result Required. PEEP 5.0 Pressure Support Vent 350 Sodium 153 H Potassium 3.5 Chloride 120 H Carbon Dioxide 25 Anion Gap 9 BUN 22.1 H Creatinine 0.9 Est GFR (CKD-EPI)AfAm 87.02 Est GFR (CKD-EPI)NonAf 75.08 POC Glucometer 219 Random Glucose 152 H Lactic Acid Calcium 7.9 L Magnesium 2.2 Total Bilirubin 0.2 AST 22 ALT 14 Alkaline Phosphatase 151 H Total Protein 5.5 L Albumin 1.7 L 04/02/19 04/02/19 04/02/19 08:50 10:30 14:47 WBC RBC Hgb Hct MCV MCH MCHC RDW Plt Count MPV Absolute Neuts (auto) Neutrophils % Lymphocytes % Monocytes % Eosinophils % Basophils % Nucleated RBC % Anticoagulation Therapy Puncture Site ABG pH ABG pCO2 at Pt Temp ABG pO2 at Pt Temp ABG HCO3 ABG O2 Sat (Measured) ABG O2 Content ABG Base Excess Atul Test O2 Delivery Device Oxygen Flow Rate Vent Mode Vent Rate Mechanical Rate PEEP Pressure Support Vent Sodium Potassium Chloride Carbon Dioxide Anion Gap BUN Creatinine Est GFR (CKD-EPI)AfAm Est GFR (CKD-EPI)NonAf POC Glucometer 150 118 500 Random Glucose Lactic Acid Calcium Magnesium Total Bilirubin AST ALT Alkaline Phosphatase Total Protein Albumin 04/02/19 15:48 WBC RBC Hgb Hct MCV MCH MCHC RDW Plt Count MPV Absolute Neuts (auto) Neutrophils % Lymphocytes % Monocytes % Eosinophils % Basophils % Nucleated RBC % Anticoagulation Therapy Puncture Site ABG pH ABG pCO2 at Pt Temp ABG pO2 at Pt Temp ABG HCO3 ABG O2 Sat (Measured) ABG O2 Content ABG Base Excess Atul Test O2 Delivery Device Oxygen Flow Rate Vent Mode Vent Rate Mechanical Rate PEEP Pressure Support Vent Sodium Potassium Chloride Carbon Dioxide Anion Gap BUN Creatinine Est GFR (CKD-EPI)AfAm Est GFR (CKD-EPI)NonAf POC Glucometer 469 Random Glucose Lactic Acid Calcium Magnesium Total Bilirubin AST ALT Alkaline Phosphatase Total Protein Albumin Active Medications Generic Name Dose Route Start Last Admin Trade Name Freq PRN Reason Stop Dose Admin Acetaminophen 1,000 mg 03/29/19 16:17 03/31/19 03:13 Ofirmev Injection - IVPB 1,000 mg Q6H PRN Administration FEVER Amino Acids 30 ml 03/26/19 15:30 04/02/19 10:24 Prosource No Carb Liquid Pkt PO 30 ml DAILY [facility] Administration Chlorhexidine Gluconate 15 ml 03/29/19 10:00 04/02/19 10:23 Peridex - MM 15 ml BID [facility] Administration Dextrose 4 gm 03/28/19 23:06 Glucose Tablet - PO PRN PRN HYPOGLYCEMIA Enoxaparin Sodium 80 mg 04/01/19 11:15 04/02/19 10:24 Lovenox - SQ 80 mg DAILY [facility] Administration Daptomycin 400 mg/ Sodium 50 mls @ 50 mls/hr 03/27/19 23:00 04/01/19 23:01 Chloride IVPB 50 mls/hr DAILY@2300 [facility] Administration Protocol Fentanyl 500 mcg/ Dextrose 100 mls @ 10 mls/hr 04/01/19 12:00 04/02/19 11:12 IVPB 50 mcg/hr TITR [facility] 10 mls/hr Administration 50 MCG/HR Propofol 1,000,000 mcg in 100 mls @ 1.287 mls/hr 04/01/19 12:00 04/01/19 15: 18 Diprivan - IVPB Not Given TITR [facility] Protocol 5 MCG/KG/MIN Midazolam HCl 100 mg in 100 mls @ 1 mls/hr 04/01/19 20:00 04/01/19 20:00 Midazolam 100mg/100ml-0.9%Nacl IVPB 5 mg/hr TITR [facility] 5 mls/hr Administration Protocol 1 MG/HR Lactated Ringer's 1,000 ml in 1,000 mls @ 75 mls/hr 04/02/19 15:00 Lactated Ringers Solution IV ASDIR [facility] Insulin Aspart 1 vial 04/02/19 11:00 04/02/19 14:50 Novolog Vial Sliding Scale - SQ 12 units Q4H [facility] Administration Protocol Ondansetron HCl 4 mg 03/11/19 20:31 03/14/19 05:07 Zofran Injection IVPUSH 4 mg Q6H PRN Administration NAUSEA AND/OR VOMITING Pantoprazole Sodium 40 mg 03/30/19 10:00 04/02/19 10:24 Protonix Iv IVPUSH 40 mg BID [facility] Administration Vancomycin HCl 125 mg 03/15/19 18:00 04/02/19 11:12 Vancomycin Oral Solution PO 125 mg Q6HPO [facility] Administration ASSESSMENT/PLAN: This is a 48F PMH IDDM, PE on xarelto, frequent DKA, HTN, HLD, CVA w/ left sided weakness, recent hospitalization at [facility] September 2018 admitted to ICU for SBO. Developed pneumoperitoneum s/p ex-lap. POD #16 Neuro - back on sedation - extubated yesterday, however reintubated today and back on sedation, versed, fentanyl drip. - Tylenol for pain/fever ctrl - dilaudid 1 mg q4h PRN for pain control CV - hx of transient a-fib with RVR - sinus tachy 100, ekg ordered to assess rythym - No longer hypotensive - Maintain MAP >65 - off pressors - central line in place - continue monitoring urine output Respiratory - Lasix IV 40 today one time dose given - monitor resp status - HFOT tachypneic so intubated on AC. GI - Crohn's flair likely, pneumoperitoneum s/p ex-lap - GI recs appreciated continuing w/ C diff management - confirmed with surgery regarding CT abdomen and pelvis with contrast via NG tube and IV contrast to assess for a fluid collection/other cause of infection. - Antibiotics per ID c/w vanco, dapto - tube feeds d/c pivot to 20cc/hr, 50cc/hr free water. - CT abd negative for abscess but showing a subacute or chronic renal infarct, however pt is on 110 Lovenox SQ given hx of PE. ID-> C diff - c/w vanco for 1 week after other abx are d/c, c/w daptomycin - CT abd pelvis s/p negative for abscess - spiked temp of 102, repeat BC,UA Cx ordered and called Dr. Pimentel and he recommended starting meropenem 1gQ8. Endocrine-> DKA -insulin 0.05 unit drip discontinued - BETA oh BUTYRATE pending FEN - Lytes in AM, replete PRN - Monitor I/Os - Monitor UrO, Cr PPx: Lovenox 80SQ, SCDs Dispo: D/w family regarding tracheostomy and they would still like more time deciding at this time. continue ICU care Visit type - Emergency Visit Emergency Visit: Yes ED Registration Date: 03/09/19 Care time: The patient presented to the Emergency Department on the above date and was hospitalized for further evaluation of their emergent condition. - New Patient This patient is new to me today: No - Critical Care Critical Care patient: Yes Total Critical Care Time (in minutes): 36 Critical Care Statement: The care of this patient involved high complexity decision making to prevent further life threatening deterioration of the patient 's condition and/or to evaluate & treat vital organ system(s) failure or risk of failure. - Discharge Referral Referred to [facility] Med [facility].: No ATTENDING PHYSICIAN STATEMENT I saw and evaluated the patient. I reviewed the resident's note and discussed the case with the resident. I agree with the resident's findings and plan as documented. SUBJECTIVE: OBJECTIVE: ASSESSMENT AND PLAN:
[2019-04-02] MEDS ORDERED: INSULIN REGULAR HUMAN 100 UNITS/ML *VIAL SQ ONE (16:52)
[2019-04-02] MEDS: MIDAZOLAM IN 0.9 % SOD.CHLORID 100 MG/100 ML PLAST..BAG IVPB SCH (17:06)
[2019-04-02] MEDS ORDERED: MEROPENEM 1 GM in DEXTROSE 5%-WATER 100 ML IVPB SCH (18:15)
[2019-04-02] MEDS ORDERED: MEROPENEM 1 GM VIAL (RESTRICTED TO ID) IVPB ONE (18:29)
[2019-04-02] MEDS ORDERED: DEXTROSE 5%-WATER 100 ML IVPB ONE (18:30)
[2019-04-02] MEDS: ACETAMINOPHEN 1000 MG/100 ML VIAL (NON FORMULARY) IVPB PRN (18:37)
[2019-04-02] MEDS: MEROPENEM 1 GM in DEXTROSE 5%-WATER 100 ML IVPB SCH (18:37)
[2019-04-03] MEDS ORDERED: DEXTROSE 50%-WATER - 25 GM/50 ML VIAL IVPUSH ONE (00:04)
[2019-04-03] MEDS: INSULIN SLIDING SCALE (NOVOLOG) 1 VIAL SQ SCH ×7 (00:11→22:28)
[2019-04-03] MEDS: DAPTOMYCIN 400 MG in SODIUM CHLORIDE 50 ML IVPB SCH ×2 (00:12→22:53)
[2019-04-03] MEDS ORDERED: INSULIN (NOVOLOG) ASPART 100 UNITS/ML 10ML VIAL ONE ×2 (00:13→22:19)
[2019-04-03] MEDS: VANCOMYCIN 250 MG/5 ML ORAL SOLUTION PO SCH ×4 (01:06→17:30)
[2019-04-03] MEDS ORDERED: MEROPENEM 1 GM VIAL (RESTRICTED TO ID) IVPB ONE ×2 (01:08→09:54)
[2019-04-03] MEDS ORDERED: DEXTROSE 5%-WATER 100 ML IVPB ONE ×3 (01:09→17:15)
[2019-04-03] MEDS: MEROPENEM 1 GM in DEXTROSE 5%-WATER 100 ML IVPB SCH ×2 (01:09→10:17)
[2019-04-03 05:49] LABS: BASO % 0.8 % (0-2.0); EOS % 2.3 % (0-4.5); HEMATOCRIT 24.8 % (32.4-45.2); HEMOGLOBIN 8.2 GM/dL (10.7-15.3); LYMPH % 22.9 % (8-40); MCH 28.7 pg (25.7-33.7); MCHC 33.2 g/dl (32.0-36.0); MEAN CELL VOLUME 86.3 fl (80-96); MEAN PLT VOLUME 7.4 fl (7.5-11.1); MONO % 6.1 % (3.8-10.2); NEUT % 67.9 % (42.8-82.8); PLATELET COUNT 550 K/MM3 (134-434); RBC 2.87 M/mm3 (3.60-5.2); RDW 23.1 % (11.6-15.6); WHITE BLOOD COUNT 9.5 K/mm3 (4.0-10.0)
[2019-04-03 06:24] LABS: ALBUMIN 1.8 g/dl (3.4-5.0); BILIRUBIN,TOTAL 0.3 mg/dL (0.2-1); BLOOD UREA NITROGEN 21.4 mg/dL (7-18); CALCIUM 7.8 mg/dL (8.5-10.1); CREATININE 0.6 mg/dL (0.55-1.3); MAGNESIUM 1.9 mg/dL (1.8-2.4); PHOSPHOROUS 1.9 mg/dL (2.5-4.9); POTASSIUM 3.5 mmol/L (3.5-5.1); TOT PROT 5.3 g/dl (6.4-8.2)
[2019-04-03] MEDS ORDERED: fentaNYL CITRATE 250 MCG/5 ML VIAL ONE ×2 (07:53→19:44)
[2019-04-03] MEDS ORDERED: POTASSIUM PHOSPHATE 10 MM in DEXTROSE 5%-WATER - 250 ML IVPB ONE (08:00)
[2019-04-03] MEDS: LACTATED RINGERS SOLUTION 1,000 ML/1,000 ML INFUS.BAG IV SCH (08:03)
[2019-04-03] MEDS ORDERED: POTASSIUM PHOSPHATE 30 MM in DEXTROSE 5%-WATER - 250 ML IVPB ONE (09:22)
--- NOTE | 2019-04-03 09:37 | PN ---
Progress Note, Physician History of Present Illness: continues mateus be intubated sedated spiked sebastian storm was added now afebrile - Current Medication List Current Medications: Active Medications Amino Acids (Prosource No Carb Liquid Pkt) 30 ml PO DAILY [facility] Last Admin: 04/02/19 10:24 Dose: 30 ml Chlorhexidine Gluconate (Peridex -) 15 ml MM BID [facility] Last Admin: 04/02/19 21:20 Dose: 15 ml Dextrose (Glucose Tablet -) 4 gm PO PRN PRN PRN Reason: HYPOGLYCEMIA Enoxaparin Sodium (Lovenox -) 80 mg SQ DAILY [facility] Last Admin: 04/02/19 10:24 Dose: 80 mg Daptomycin 400 mg/ Sodium (Chloride) 50 mls @ 50 mls/hr IVPB DAILY@2300 [facility]; Protocol Last Admin: 04/03/19 00:12 Dose: 50 mls/hr Fentanyl 500 mcg/ Dextrose 100 mls @ 10 mls/hr IVPB TITR [facility] Last Admin: 04/02/19 20:58 Dose: 50 mcg/hr, 10 mls/hr Propofol (Diprivan -) 1,000,000 mcg in 100 mls @ 1.287 mls/hr IVPB TITR [facility]; Protocol Last Admin: 04/02/19 12:06 Dose: Not Given Midazolam HCl (Midazolam 100mg/100ml-0.9%Nacl) 100 mg in 100 mls @ 1 mls/hr IVPB TITR [facility]; Protocol Last Titration: 04/03/19 05:00 Dose: 10 mg/hr, 10 mls/hr Lactated Ringer's (Lactated Ringers Solution) 1,000 ml in 1,000 mls @ 75 mls/ hr IV ASDIR [facility] Last Admin: 04/03/19 08:03 Dose: 75 mls/hr Meropenem 1 gm/ Dextrose 100 mls @ 200 mls/hr IVPB Q8H-IV [facility] Meropenem 1 gm/ Dextrose 100 mls @ 200 mls/hr IVPB Q8H-IV [facility] Stop: 04/03/19 10:29 Last Admin: 04/03/19 01:09 Dose: 200 mls/hr Potassium Phosphate 30 mm/ (Dextrose) 260 mls @ 62.5 mls/hr IVPB ONCE ONE Stop: 04/03/19 12:09 Insulin Aspart (Novolog Vial Sliding Scale -) 1 vial SQ Q4H [facility]; Protocol Last Admin: 04/03/19 06:33 Dose: 4 units Ondansetron HCl (Zofran Injection) 4 mg IVPUSH Q6H PRN PRN Reason: NAUSEA AND/OR VOMITING Last Admin: 03/14/19 05:07 Dose: 4 mg Pantoprazole Sodium (Protonix Iv) 40 mg IVPUSH BID [facility] Last Admin: 04/02/19 21:20 Dose: 40 mg Vancomycin HCl (Vancomycin Oral Solution) 125 mg PO Q6HPO [facility] Last Admin: 04/03/19 06:32 Dose: 125 mg - Objective Vital Signs: Vital Signs Temperature 98.5 F 04/03/19 05:00 Pulse Rate 93 H 04/03/19 08:29 Respiratory Rate 25 H 04/03/19 08:29 Blood Pressure 145/89 04/03/19 08:00 O2 Sat by Pulse Oximetry (%) 100 04/03/19 08:29 Constitutional: Yes: No Distress, Calm Cardiovascular: Yes: S1, S2 Respiratory: Yes: Intubated, Mechanically Ventilated Gastrointestinal: Yes: Normal Bowel Sounds, Soft, Other (ng tube in place) Musculoskeletal: Yes: WNL Extremities: Yes: Other Edema: LUE: 2+, RUE: 2+, LLE: 2+, RLE: 2+ Neurological: Yes: Other (sedated) Labs: CBC, BMP 04/03/19 05:00 04/03/19 05:00 INR, PTT INR 0.95 (0.83-1.09) 03/26/19 06:00 Fibrinogen 359.0 mg/dL (238-498) 03/19/19 23:15 Assessment/Plan blem List - Problems (1) Diabetes Code(s): E11.9 - TYPE 2 DIABETES MELLITUS WITHOUT COMPLICATIONS (2) HLD (hyperlipidemia) Code(s): E78.5 - HYPERLIPIDEMIA, UNSPECIFIED (3) HTN (hypertension) Code(s): I10 - ESSENTIAL (PRIMARY) HYPERTENSION (4) Crohn's disease Code(s): K50.90 - CROHN'S DISEASE, UNSPECIFIED, WITHOUT COMPLICATIONS Qualifiers: Gastrointestinal tract location: small intestine Digestive disease complication type: with rectal bleeding Qualified Code(s): K50.011 - Crohn's disease of small intestine with rectal bleeding (5) Cerebrovascular accident (CVA) Code(s): I63.9 - CEREBRAL INFARCTION, UNSPECIFIED Qualifiers: CVA mechanism: unspecified Qualified Code(s): I63.9 - Cerebral infarction, unspecified (6) Diabetes mellitus, insulin dependent (IDDM), uncontrolled Code(s): E10.65 - TYPE 1 DIABETES MELLITUS WITH HYPERGLYCEMIA Assessment/Plan 48 y.o. female with PMH of uncontrolled IDDM and DKA, Crohn's disease on prednisone, CVA, PE, HTN, HLD presenting with abdominal pain Acute Respiratory failure on MV/sedation s/p cardiopulmonary arrest Sepsis Fever SB perforation s/p Ex-lap/RAYSHAWN/partial SB and omental resection with anastomosis/ washout Peritonitis : klebsiella/Enterococcus isolated C diff colitis Crohn's disease IDDM Hx of multiple DKA Hx of CVA Hx of PE HTN HLD plan continue vent support nutrition continue abx will stop dapto tomorrow and monitor nutrition diuresis as needed cc 40 min
[2019-04-03] MEDS: PANTOPRAZOLE SODIUM 40 MG VIAL IVPUSH SCH ×2 (10:13→22:10)
[2019-04-03] MEDS: ENOXAPARIN NA (PORCINE) 80 MG/0.8 ML DISP.SYRIN SQ SCH (10:16)
[2019-04-03] MEDS: AMINO ACIDS/PROTEIN HYDROLYS 30 ML LIQUID.PKT PO SCH (10:17)
--- NOTE | 2019-04-03 10:41 | PN ---
Progress Note (short form) - Note Progress Note: Patient seen and examined in the ICU Remains intubated and sedated febrile, ABX escalated to meropenem by ID BP stable Current Medications Amino Acids (Prosource No Carb Liquid Pkt) 30 ml PO DAILY [facility] Last Admin: 04/03/19 10:17 Dose: 30 ml Chlorhexidine Gluconate (Peridex -) 15 ml MM BID [facility] Last Admin: 04/02/19 21:20 Dose: 15 ml Dextrose (Glucose Tablet -) 4 gm PO PRN PRN PRN Reason: HYPOGLYCEMIA Enoxaparin Sodium (Lovenox -) 80 mg SQ DAILY [facility] Last Admin: 04/03/19 10:16 Dose: 80 mg Daptomycin 400 mg/ Sodium (Chloride) 50 mls @ 50 mls/hr IVPB DAILY@2300 [facility]; Protocol Last Admin: 04/03/19 00:12 Dose: 50 mls/hr Fentanyl 500 mcg/ Dextrose 100 mls @ 10 mls/hr IVPB TITR [facility] Last Admin: 04/02/19 20:58 Dose: 50 mcg/hr, 10 mls/hr Propofol (Diprivan -) 1,000,000 mcg in 100 mls @ 1.287 mls/hr IVPB TITR [facility]; Protocol Last Admin: 04/02/19 12:06 Dose: Not Given Midazolam HCl (Midazolam 100mg/100ml-0.9%Nacl) 100 mg in 100 mls @ 1 mls/hr IVPB TITR [facility]; Protocol Last Titration: 04/03/19 05:00 Dose: 10 mg/hr, 10 mls/hr Meropenem 1 gm/ Dextrose 100 mls @ 200 mls/hr IVPB Q8H-IV [facility] Potassium Phosphate 30 mm/ (Dextrose) 260 mls @ 62.5 mls/hr IVPB ONCE ONE Stop: 04/03/19 12:09 Dextrose (D5w -) 1,000 mls @ 75 mls/hr IV .[id number] [facility] Insulin Aspart (Novolog Vial Sliding Scale -) 1 vial SQ Q4H [facility]; Protocol Last Admin: 04/03/19 06:33 Dose: 4 units Ondansetron HCl (Zofran Injection) 4 mg IVPUSH Q6H PRN PRN Reason: NAUSEA AND/OR VOMITING Last Admin: 03/14/19 05:07 Dose: 4 mg Pantoprazole Sodium (Protonix Iv) 40 mg IVPUSH BID [facility] Last Admin: 04/03/19 10:13 Dose: 40 mgExam: Vancomycin HCl (Vancomycin Oral Solution) 125 mg PO Q6HPO [facility] Last Admin: 04/03/19 06:32 Dose: 125 mg Vital Signs Period Temp Pulse Resp BP Sys/Rapp Pulse Ox Last 24 Hr 98.0 F-102 F 89-126 19-37 104-151/59-89 97-100 Intake & Output 03/31/19 04/01/19 04/02/19 04/03/19 23:59 23:59 23:59 23:59 Intake Total 440 1214 3121.5 2541 Output Total 3560 2505 1250 Balance -3120 -1291 1871.5 2541 Weight 54.159 kg 42.91 kg 44.14 kg 44.452 kg Exam: General intubated on vent minimally responsive to stimulation HEENT: PERRL, no JVD, anicteric sclera CV: RRR Pulm: coarse Abd: SNTND, wound vac in place c/d/i +BS Ext: UE +3 edema, LE +1 edmea Neuro: moves right side to noxious stim CBC, BMP 04/03/19 05:00 04/03/19 05:00 CXR: ETT and CVC in good position, otherwise unchanged from previous ASSESSMENT AND PLAN: s/p Cardiopulmonary Arrest r/o Anoxic Brain Injury Acute Hypoxic Respiratory Failure Perforated Small Bowel s/p ex-lap/RAYSHAWN/segmental SB resection Crohn's Disease Peritonitis +C diff Colitis Septic Shock Lactic Acidosis Volume Overload h/o PE HTN DM Hyperlipidemia Anemia Thrombocytopenia h/o CVA - Multiple reintubations for resp failure: Will need Tracheostomy - continue antibiotics per ID: meropenem - Lasix today - monitor urine output, creatinine - replete lytes - Change LR to D5 w for hyperNa - off pressors, maintain MAP > 65 - continue anticoagulation - DVT/GI prophylaxis - Cont enteral feeds - continue ICU monitoring Boerem ACNP Pulm/CCM CCT: 40m
[2019-04-03] MEDS ORDERED: FUROSEMIDE 40 MG/4 ML INJECTABLE VIAL IVPUSH ONE (10:43)
[2019-04-03] MEDS: MIDAZOLAM IN 0.9 % SOD.CHLORID 100 MG/100 ML PLAST..BAG IVPB SCH ×2 (10:45→22:00)
[2019-04-03] MEDS: CHLORHEXIDINE GLUCONATE 0.12% 15ML CUP MM SCH ×2 (10:56→22:10)
[2019-04-03] MEDS: DEXTROSE 5%-WATER - 1,000 ML IV SCH ×2 (10:58→12:19)
[2019-04-03 11:19] LABS: ANISOCYTOSIS 1+; MACROCYTOSIS 1+; OVALOCYTE 1+; PLATELET ESTIMATE INCREASED; TARGET CELLS 1+
--- NOTE | 2019-04-03 11:30 | PN ---
Physical Exam: SUBJECTIVE: Patient seen and examined in the icu. remains intubated and sedated with labored breathing. OBJECTIVE: Patient is a 48 year old female admitted for septic shock 2/ to bowel perforation. she is s/p exp lap with resection of ilial perforation on 03/12. In the past she has had multiple admission for DKA. This hospitalization complicated with multiple episodes of respiratory failure, bacteremia, c-diff and DKA. she also had an episode of pulseless activity on 03/19/19 and was intubated after CPR performed. Vital Signs Period Temp Pulse Resp BP Sys/Rapp Pulse Ox Last 24 Hr 98.0 F-102 F 89-126 19-37 104-151/59-89 97-100 GENERAL: anasarca, intubated HEAD: Normal with no signs of trauma. ENT: Ears normal, nares patent, oropharynx clear without exudates, moist mucous membranes. NECK: Trachea midline, full range of motion, supple. LUNGS: intubated, sedated HEART: tachycardia 110s ABDOMEN: wound vac EXTREMITIES: anasacra NEUROLOGICAL: intubated Laboratory Results - last 24 hr 04/02/19 04/02/19 04/02/19 14:47 15:48 18:26 WBC RBC Hgb Hct MCV MCH MCHC RDW Plt Count MPV Absolute Neuts (auto) Neutrophils % Lymphocytes % Monocytes % Eosinophils % Basophils % Nucleated RBC % Sodium Potassium Chloride Carbon Dioxide Anion Gap BUN Creatinine Est GFR (CKD-EPI)AfAm Est GFR (CKD-EPI)NonAf POC Glucometer 500 469 189 Random Glucose Calcium Phosphorus Magnesium Total Bilirubin AST ALT Alkaline Phosphatase Total Protein Albumin 04/02/19 04/03/19 04/03/19 23:59 01:03 02:52 WBC RBC Hgb Hct MCV MCH MCHC RDW Plt Count MPV Absolute Neuts (auto) Neutrophils % Lymphocytes % Monocytes % Eosinophils % Basophils % Nucleated RBC % Sodium Potassium Chloride Carbon Dioxide Anion Gap BUN Creatinine Est GFR (CKD-EPI)AfAm Est GFR (CKD-EPI)NonAf POC Glucometer 36 93 112 Random Glucose Calcium Phosphorus Magnesium Total Bilirubin AST ALT Alkaline Phosphatase Total Protein Albumin 04/03/19 04/03/19 04/03/19 05:00 05:00 05:27 WBC 9.5 RBC 2.87 L Hgb 8.2 L Hct 24.8 L MCV 86.3 MCH 28.7 MCHC 33.2 RDW 23.1 H Plt Count 550 H MPV 7.4 L Absolute Neuts (auto) 6.5 Neutrophils % 67.9 Lymphocytes % 22.9 D Monocytes % 6.1 Eosinophils % 2.3 D Basophils % 0.8 Nucleated RBC % 0 Sodium 151 H Potassium 3.5 Chloride 116 H Carbon Dioxide 27 Anion Gap 7 L BUN 21.4 H Creatinine 0.6 Est GFR (CKD-EPI)AfAm 124.05 Est GFR (CKD-EPI)NonAf 107.03 POC Glucometer 245 Random Glucose 230 H Calcium 7.8 L Phosphorus 1.9 L Magnesium 1.9 Total Bilirubin 0.3 AST 18 ALT 12 L Alkaline Phosphatase 138 H Total Protein 5.3 L Albumin 1.8 L 04/03/19 10:53 WBC RBC Hgb Hct MCV MCH MCHC RDW Plt Count MPV Absolute Neuts (auto) Neutrophils % Lymphocytes % Monocytes % Eosinophils % Basophils % Nucleated RBC % Sodium Potassium Chloride Carbon Dioxide Anion Gap BUN Creatinine Est GFR (CKD-EPI)AfAm Est GFR (CKD-EPI)NonAf POC Glucometer 321 Random Glucose Calcium Phosphorus Magnesium Total Bilirubin AST ALT Alkaline Phosphatase Total Protein Albumin Active Medications Generic Name Dose Route Start Last Admin Trade Name Freq PRN Reason Stop Dose Admin Amino Acids 30 ml 03/26/19 15:30 04/03/19 10:17 Prosource No Carb Liquid Pkt PO 30 ml DAILY [facility] Administration Chlorhexidine Gluconate 15 ml 03/29/19 10:00 04/03/19 10:56 Peridex - MM 15 ml BID [facility] Administration Dextrose 4 gm 03/28/19 23:06 Glucose Tablet - PO PRN PRN HYPOGLYCEMIA Enoxaparin Sodium 80 mg 04/01/19 11:15 04/03/19 10:16 Lovenox - SQ 80 mg DAILY [facility] Administration Daptomycin 400 mg/ Sodium 50 mls @ 50 mls/hr 03/27/19 23:00 04/03/19 00:12 Chloride IVPB 50 mls/hr DAILY@2300 [facility] Administration Protocol Fentanyl 500 mcg/ Dextrose 100 mls @ 10 mls/hr 04/01/19 12:00 04/02/19 20:58 IVPB 50 mcg/hr TITR [facility] 10 mls/hr Administration 50 MCG/HR Propofol 1,000,000 mcg in 100 mls @ 1.287 mls/hr 04/01/19 12:00 04/02/19 12: 06 Diprivan - IVPB Not Given TITR [facility] Protocol 5 MCG/KG/MIN Midazolam HCl 100 mg in 100 mls @ 1 mls/hr 04/01/19 20:00 04/03/19 10:45 Midazolam 100mg/100ml-0.9%Nacl IVPB 10 mg/hr TITR [facility] 10 mls/hr Administration Protocol 1 MG/HR Meropenem 1 gm/ Dextrose 100 mls @ 200 mls/hr 04/02/19 18:15 IVPB Q8H-IV [facility] Potassium Phosphate 30 mm/ 260 mls @ 43.333 mls/hr 04/03/19 09:22 Dextrose IVPB 04/03/19 15:21 ONCE ONE Dextrose 1,000 mls @ 75 mls/hr 04/03/19 10:30 04/03/19 10:58 D5w - IV 75 mls/hr ASDIR [facility] Administration Insulin Aspart 1 vial 04/02/19 11:00 04/03/19 10:59 Novolog Vial Sliding Scale - SQ 8 units Q4H [facility] Administration Protocol Ondansetron HCl 4 mg 03/11/19 20:31 03/14/19 05:07 Zofran Injection IVPUSH 4 mg Q6H PRN Administration NAUSEA AND/OR VOMITING Pantoprazole Sodium 40 mg 03/30/19 10:00 04/03/19 10:13 Protonix Iv IVPUSH 40 mg BID [facility] Administration Vancomycin HCl 125 mg 03/15/19 18:00 04/03/19 06:32 Vancomycin Oral Solution PO 125 mg Q6HPO [facility] Administration ASSESSMENT/PLAN: Problem List - Problems (1) DKA (diabetic ketoacidoses) Assessment/Plan: insulin d/cd, now on long short acting insulin q4, on d5 @ 75cc/hr with close monitoring of BGMs. Code(s): E13.10 - OTH DIABETES MELLITUS WITH KETOACIDOSIS WITHOUT COMA Qualifiers: Diabetes mellitus type: type 1 Diabetes mellitus complication detail: without coma Qualified Code(s): E10.10 - Type 1 diabetes mellitus with ketoacidosis without coma (2) Acute respiratory failure Assessment/Plan: respiratory failure, intubated and sedated on fentanyl and versed appreciate ICU level of care Code(s): J96.00 - ACUTE RESPIRATORY FAILURE, UNSP W HYPOXIA OR HYPERCAPNIA (3) Perforated abdominal viscus Assessment/Plan: s/p Ex-lap/ARYSHAWN/partial SB and omental resection with anastomosis/washout on 03/12 wound dihisecence noted at distal portion, vac in place dressing changes as per surgery on daptomycin per ID to be d/c tomorrow, meropenem added. Code(s): QIM0214 - (4) Abdominal pain Assessment/Plan: Patient is/p ex-lap/RAYSHAWN/partial SB and omental resection with anastomosis/ washout appreciate surgical and ID consultation Code(s): R10.9 - UNSPECIFIED ABDOMINAL PAIN Qualifiers: Abdominal location: generalized Qualified Code(s): R10.84 - Generalized abdominal pain (5) C. difficile diarrhea Assessment/Plan: vanco 125mg QID c/w rectal tube Code(s): A04.72 - ENTEROCOLITIS D/T CLOSTRIDIUM DIFFICILE, NOT SPCF RECUR (6) Diabetes Assessment/Plan: monitor bgms. on short acting novolog. Code(s): E11.9 - TYPE 2 DIABETES MELLITUS WITHOUT COMPLICATIONS (7) ESBL (extended spectrum beta-lactamase) producing bacteria infection Assessment/Plan: esbl in wound culture. maintain contact precautions. Code(s): A49.9 - BACTERIAL INFECTION, UNSPECIFIED; Z16.12 - EXTENDED SPECTRUM BETA LACTAMASE (ESBL) RESISTANCE (8) HTN (hypertension) Assessment/Plan: ICU monitoring with frequent checks Code(s): I10 - ESSENTIAL (PRIMARY) HYPERTENSION (9) Left-sided weakness Assessment/Plan: chronic left sided weakness. now with edema of both arms and anasarca Code(s): R53.1 - WEAKNESS (10) Acute Crohn's disease Assessment/Plan: lysis of adhesions, segmental resection of small intestinal perforation with side-side stapled anastomosis, abdominal washout, resection of portion of omentum. GI following. Code(s): K50.90 - CROHN'S DISEASE, UNSPECIFIED, WITHOUT COMPLICATIONS (11) Anemia Assessment/Plan: s/p 2 units of prbc. monitor cbc daily Code(s): D64.9 - ANEMIA, UNSPECIFIED (12) Respiratory failure Code(s): J96.90 - RESPIRATORY FAILURE, UNSP, UNSP W HYPOXIA OR HYPERCAPNIA (13) Prophylactic measure Assessment/Plan: NPO monitor electrolytes DVT on lovenox 110 Dispo requires ICU care full code Code(s): Z29.9 - ENCOUNTER FOR PROPHYLACTIC MEASURES, UNSPECIFIED Visit type - Emergency Visit Emergency Visit: Yes ED Registration Date: 03/09/19 Care time: The patient presented to the Emergency Department on the above date and was hospitalized for further evaluation of their emergent condition. - New Patient This patient is new to me today: No - Critical Care Critical Care patient: Yes Total Critical Care Time (in minutes): 45 Critical Care Statement: The care of this patient involved high complexity decision making to prevent further life threatening deterioration of the patient 's condition and/or to evaluate & treat vital organ system(s) failure or risk of failure.
[2019-04-03] MEDS: FENTANYL INJECTION 500 MCG in DEXTROSE 5%-WATER - 90 ML IVPB SCH (12:31)
[2019-04-03] MEDS: PROPOFOL 1,000,000 MCG/100 ML VIAL IVPB SCH (12:33)
[2019-04-03] MEDS ORDERED: PT OWN MED DRAWER 7, Y5N ONE ×2 (14:31→22:18)
[2019-04-03] MEDS ORDERED: MEROPENEM 500 MG VIAL (RESTRICTED TO ID) IVPB ONE (17:14)
[2019-04-03] MEDS: MEROPENEM 500 MG in DEXTROSE 5%-WATER 100 ML IVPB SCH (17:30)
[2019-04-03 18:02] LABS: URINE APPEARANCE Clear; URINE BILIRUBIN 1+ (NEGATIVE); URINE COLOR Yellow; URINE GLUCOSE (UA) Negative (NEGATIVE); URINE KETONE 1+ (NEGATIVE); URINE LEUK ESTERASE Negative (NEGATIVE); URINE NITRITE Negative (NEGATIVE); URINE PROTEIN 2+ (NEGATIVE); URINE UROBILINOGEN 0.2 mg/dL (0.2-1.0)
[2019-04-03 18:58] LABS: URINE BACTERIA FEW /hpf (NEGATIVE); URINE RBC 0-3 /hpf (0-4); URINE WBC 0-3 /hpf (0-5)
[2019-04-04] MEDS: VANCOMYCIN 250 MG/5 ML ORAL SOLUTION PO SCH ×5 (00:02→23:25)
[2019-04-04] MEDS ORDERED: MEROPENEM 500 MG VIAL (RESTRICTED TO ID) IVPB ONE ×2 (00:04→09:05)
[2019-04-04] MEDS ORDERED: DEXTROSE 5%-WATER 100 ML IVPB ONE ×2 (00:04→09:05)
[2019-04-04] MEDS: MEROPENEM 500 MG in DEXTROSE 5%-WATER 100 ML IVPB SCH ×2 (01:30→09:08)
[2019-04-04] MEDS: INSULIN SLIDING SCALE (NOVOLOG) 1 VIAL SQ SCH ×6 (03:24→23:18)
[2019-04-04 06:34] LABS: BASO % 0.8 % (0-2.0); EOS % 3.3 % (0-4.5); HEMATOCRIT 22.9 % (32.4-45.2); HEMOGLOBIN 7.8 GM/dL (10.7-15.3); MCH 29.2 pg (25.7-33.7); MEAN CELL VOLUME 86.1 fl (80-96); MEAN PLT VOLUME 7.5 fl (7.5-11.1); MONO % 4.7 % (3.8-10.2); NEUT % 73.2 % (42.8-82.8); PLATELET COUNT 475 K/MM3 (134-434); RBC 2.66 M/mm3 (3.60-5.2); RDW 23.1 % (11.6-15.6)
[2019-04-04 06:51] LABS: ALBUMIN 1.5 g/dl (3.4-5.0); BILIRUBIN,TOTAL 0.2 mg/dL (0.2-1); BLOOD UREA NITROGEN 18.4 mg/dL (7-18); CALCIUM 7.5 mg/dL (8.5-10.1); CREATININE 0.5 mg/dL (0.55-1.3); MAGNESIUM 1.8 mg/dL (1.8-2.4); POTASSIUM 3.1 mmol/L (3.5-5.1); TOT PROT 4.8 g/dl (6.4-8.2)
[2019-04-04] MEDS ORDERED: fentaNYL CITRATE 250 MCG/5 ML VIAL ONE ×3 (07:11→22:21)
[2019-04-04] MEDS: FENTANYL INJECTION 500 MCG in DEXTROSE 5%-WATER - 90 ML IVPB SCH ×2 (07:20→15:02)
--- NOTE | 2019-04-04 08:34 | PN ---
Progress Note (short form) - Note Progress Note: Seen and examined in the ICU Sodium improved w/ D5w but BS have increased AG remains closed low grade fever Current Medications Amino Acids (Prosource No Carb Liquid Pkt) 30 ml PO DAILY [facility] Last Admin: 04/03/19 10:17 Dose: 30 ml Chlorhexidine Gluconate (Peridex -) 15 ml MM BID [facility] Last Admin: 04/03/19 22:10 Dose: 15 ml Dextrose (Glucose Tablet -) 4 gm PO PRN PRN PRN Reason: HYPOGLYCEMIA Enoxaparin Sodium (Lovenox -) 80 mg SQ DAILY [facility] Last Admin: 04/03/19 10:16 Dose: 80 mg Furosemide (Lasix Injection -) 40 mg IVPUSH ONCE ONE Stop: 04/04/19 08:22 Daptomycin 400 mg/ Sodium (Chloride) 50 mls @ 50 mls/hr IVPB DAILY@2300 [facility]; Protocol Last Admin: 04/03/19 22:53 Dose: 50 mls/hr Fentanyl 500 mcg/ Dextrose 100 mls @ 10 mls/hr IVPB TITR [facility] Last Admin: 04/04/19 07:20 Dose: 50 mcg/hr, 10 mls/hr Propofol (Diprivan -) 1,000,000 mcg in 100 mls @ 1.287 mls/hr IVPB TITR [facility]; Protocol Last Admin: 04/03/19 12:33 Dose: Not Given Midazolam HCl (Midazolam 100mg/100ml-0.9%Nacl) 100 mg in 100 mls @ 1 mls/hr IVPB TITR [facility]; Protocol Last Admin: 04/03/19 22:00 Dose: 10 mg/hr, 10 mls/hr Dextrose (D5w -) 1,000 mls @ 75 mls/hr IV ASDIR [facility] Last Admin: 04/03/19 12:19 Dose: Not Given Meropenem 500 mg/ Dextrose 100 mls @ 200 mls/hr IVPB Q8H-IV [facility] Meropenem 500 mg/ Dextrose 100 mls @ 200 mls/hr IVPB Q8H-IV [facility] Stop: 04/04/19 10:29 Last Admin: 04/04/19 01:30 Dose: 200 mls/hr Insulin Aspart (Novolog Vial Sliding Scale -) 1 vial SQ Q4H [facility]; Protocol Last Admin: 04/04/19 08:01 Dose: 8 units Ondansetron HCl (Zofran Injection) 4 mg IVPUSH Q6H PRN PRN Reason: NAUSEA AND/OR VOMITING Last Admin: 03/14/19 05:07 Dose: 4 mg Pantoprazole Sodium (Protonix Iv) 40 mg IVPUSH BID [facility] Last Admin: 04/03/19 22:10 Dose: 40 mg Potassium Chloride (Potassium Chloride 20 Meq Premix Ivpb -) 20 meq IVPB Q60M [facility] Stop: 04/04/19 10:31 Vancomycin HCl (Vancomycin Oral Solution) 125 mg PO Q6HPO [facility] Last Admin: 04/04/19 06:18 Dose: 125 mg Vital Signs Period Temp Pulse Resp BP Sys/Rapp Pulse Ox Last 24 Hr 98.7 F-100.6 F 87-107 16-32 97-133/56-77 97-100 Intake & Output 04/01/19 04/02/19 04/03/19 04/04/19 23:59 23:59 23:59 23:59 Intake Total 1214 3121.5 3359 Output Total 2505 1250 1800 Balance -1291 1871.5 1559 Weight 42.91 kg 44.14 kg 44.452 kg 53.8 kg Exam: General intubated on vent minimally responsive to stimulation HEENT: PERRL, no JVD, anicteric sclera CV: RRR Pulm: coarse Abd: SNTND, wound vac in place c/d/i +BS Ext: UE +3 edema, LE +1 edmea Neuro: moves right side to noxious stim CBC, BMP 04/04/19 05:15 04/04/19 05:15 CXR: ETT and CVC in good position, otherwise unchanged from previous Microbiology 04/02/19 18:20 Sputum - Endotrachea Suction/Ventilator Sputum Culture - Preliminary Lactose Fermenting Neg Bacilli 04/02/19 19:20 Blood - Peripheral Venous Blood Culture - Preliminary NO GROWTH OBTAINED AFTER 24 HOURS, INCUBATION TO CONTINUE FOR 4 DAYS. 04/02/19 19:30 Blood - Peripheral Venous Blood Culture - Preliminary NO GROWTH OBTAINED AFTER 24 HOURS, INCUBATION TO CONTINUE FOR 4 DAYS. ASSESSMENT AND PLAN: s/p Cardiopulmonary Arrest r/o Anoxic Brain Injury Acute Hypoxic Respiratory Failure Perforated Small Bowel s/p ex-lap/RAYSHAWN/segmental SB resection Crohn's Disease Peritonitis +C diff Colitis Septic Shock Lactic Acidosis Volume Overload h/o PE HTN DM Hyperlipidemia Anemia Thrombocytopenia h/o CVA - Multiple reintubations for resp failure: Will need Tracheostomy - wean versed down today, will defer daily interruption given awaiting trach - continue antibiotics per ID: meropenem - Lasix today goal net out - monitor urine output, creatinine - replete lytes - Cont D5 w for hyperNa - off pressors, maintain MAP > 65 - continue anticoagulation - DVT/GI prophylaxis - Cont enteral feeds - continue ICU monitoring Boerem ACNP Pulm/CCM CCT: 40m
[2019-04-04] MEDS ORDERED: FUROSEMIDE 40 MG/4 ML INJECTABLE VIAL IVPUSH ONE (08:45)
[2019-04-04] MEDS: PANTOPRAZOLE SODIUM 40 MG VIAL IVPUSH SCH ×2 (09:07→21:13)
[2019-04-04] MEDS: ENOXAPARIN NA (PORCINE) 80 MG/0.8 ML DISP.SYRIN SQ SCH (09:07)
[2019-04-04] MEDS: CHLORHEXIDINE GLUCONATE 0.12% 15ML CUP MM SCH ×2 (09:08→21:13)
[2019-04-04] MEDS: POTASSIUM CHLORIDE 20 MEQ PREMIX IVPB 100 ML IVPB SCH ×3 (09:08→10:34)
[2019-04-04] MEDS: AMINO ACIDS/PROTEIN HYDROLYS 30 ML LIQUID.PKT PO SCH (09:08)
--- NOTE | 2019-04-04 10:27 | PN ---
Progress Note, Physician History of Present Illness: continues to have fevers intubated - Current Medication List Current Medications: Active Medications Amino Acids (Prosource No Carb Liquid Pkt) 30 ml PO DAILY [facility] Last Admin: 04/04/19 09:08 Dose: 30 ml Chlorhexidine Gluconate (Peridex -) 15 ml MM BID [facility] Last Admin: 04/04/19 09:08 Dose: 15 ml Dextrose (Glucose Tablet -) 4 gm PO PRN PRN PRN Reason: HYPOGLYCEMIA Enoxaparin Sodium (Lovenox -) 80 mg SQ DAILY [facility] Last Admin: 04/04/19 09:07 Dose: 80 mg Fentanyl 500 mcg/ Dextrose 100 mls @ 10 mls/hr IVPB TITR [facility] Last Admin: 04/04/19 07:20 Dose: 50 mcg/hr, 10 mls/hr Propofol (Diprivan -) 1,000,000 mcg in 100 mls @ 1.287 mls/hr IVPB TITR [facility]; Protocol Last Admin: 04/03/19 12:33 Dose: Not Given Midazolam HCl (Midazolam 100mg/100ml-0.9%Nacl) 100 mg in 100 mls @ 1 mls/hr IVPB TITR [facility]; Protocol Last Admin: 04/03/19 22:00 Dose: 10 mg/hr, 10 mls/hr Dextrose (D5w -) 1,000 mls @ 75 mls/hr IV ASDIR [facility] Last Admin: 04/03/19 12:19 Dose: Not Given Meropenem 500 mg/ Dextrose 100 mls @ 200 mls/hr IVPB Q8H-IV [facility] Meropenem 500 mg/ Dextrose 100 mls @ 200 mls/hr IVPB Q8H-IV [facility] Stop: 04/04/19 10:29 Last Admin: 04/04/19 09:08 Dose: 200 mls/hr Insulin Aspart (Novolog Vial Sliding Scale -) 1 vial SQ Q4H [facility]; Protocol Last Admin: 04/04/19 08:01 Dose: 8 units Ondansetron HCl (Zofran Injection) 4 mg IVPUSH Q6H PRN PRN Reason: NAUSEA AND/OR VOMITING Last Admin: 03/14/19 05:07 Dose: 4 mg Pantoprazole Sodium (Protonix Iv) 40 mg IVPUSH BID [facility] Last Admin: 04/04/19 09:07 Dose: 40 mg Potassium Chloride (Potassium Chloride 20 Meq Premix Ivpb -) 20 meq IVPB Q60M [facility] Stop: 04/04/19 10:46 Last Admin: 04/04/19 09:46 Dose: 20 meq Vancomycin HCl (Vancomycin Oral Solution) 125 mg PO Q6HPO [facility] Last Admin: 04/04/19 06:18 Dose: 125 mg - Objective Vital Signs: Vital Signs Temperature 100.1 F H 04/04/19 09:00 Pulse Rate 99 H 04/04/19 09:00 Respiratory Rate 32 H 04/04/19 09:00 Blood Pressure 137/80 04/04/19 09:00 O2 Sat by Pulse Oximetry (%) 100 04/04/19 08:39 Constitutional: Yes: Other Cardiovascular: Yes: Tachycardia Respiratory: Yes: Intubated, Mechanically Ventilated Gastrointestinal: Yes: Normal Bowel Sounds, Soft, Other (ng in place) Musculoskeletal: Yes: WNL Extremities: Yes: Other Edema: LLE: 2+, RLE: 2+ Neurological: Yes: Other Labs: CBC, BMP 04/04/19 05:15 04/04/19 05:15 INR, PTT INR 0.95 (0.83-1.09) 03/26/19 06:00 Fibrinogen 359.0 mg/dL (238-498) 03/19/19 23:15 - ....Imaging Chest X-ray: Report Reviewed, Image Reviewed Assessment/Plan blem List - Problems (1) Diabetes Code(s): E11.9 - TYPE 2 DIABETES MELLITUS WITHOUT COMPLICATIONS (2) HLD (hyperlipidemia) Code(s): E78.5 - HYPERLIPIDEMIA, UNSPECIFIED (3) HTN (hypertension) Code(s): I10 - ESSENTIAL (PRIMARY) HYPERTENSION (4) Crohn's disease Code(s): K50.90 - CROHN'S DISEASE, UNSPECIFIED, WITHOUT COMPLICATIONS Qualifiers: Gastrointestinal tract location: small intestine Digestive disease complication type: with rectal bleeding Qualified Code(s): K50.011 - Crohn's disease of small intestine with rectal bleeding (5) Cerebrovascular accident (CVA) Code(s): I63.9 - CEREBRAL INFARCTION, UNSPECIFIED Qualifiers: CVA mechanism: unspecified Qualified Code(s): I63.9 - Cerebral infarction, unspecified (6) Diabetes mellitus, insulin dependent (IDDM), uncontrolled Code(s): E10.65 - TYPE 1 DIABETES MELLITUS WITH HYPERGLYCEMIA Assessment/Plan 48 y.o. female with PMH of uncontrolled IDDM and DKA, Crohn's disease on prednisone, CVA, PE, HTN, HLD presenting with abdominal pain Acute Respiratory failure on MV/sedation s/p cardiopulmonary arrest Sepsis Fever SB perforation s/p Ex-lap/RAYSHAWN/partial SB and omental resection with anastomosis/ washout Peritonitis : klebsiella/Enterococcus isolated C diff colitis Crohn's disease IDDM Hx of multiple DKA Hx of CVA Hx of PE HTN HLD plan continue vent support nutrition continue sylvester nutrition diuresis as needed control fevers all cx noted cc 40 min
[2019-04-04] MEDS ORDERED: PT OWN MED DRAWER 7, Y5N ONE (10:36)
--- NOTE | 2019-04-04 11:52 | PN ---
Physical Exam: SUBJECTIVE: Patient seen and examined at the bedside. OBJECTIVE: Patient is a 48 year old female admitted for septic shock 2/ to bowel perforation. she is s/p exp lap with resection of ilial perforation on 03/12. In the past she has had multiple admission for DKA. This hospitalization complicated with multiple episodes of respiratory failure, bacteremia, c-diff and DKA. she also had an episode of pulseless activity on 03/19/19 and was intubated after CPR performed. Vital Signs Period Temp Pulse Resp BP Sys/Rapp Pulse Ox Last 24 Hr 97.9 F-101.9 F 83-115 16-34 93-143/54-80 97-100 GENERAL: anasarca, intubated HEAD: Normal with no signs of trauma. ENT: Ears normal, nares patent, oropharynx clear without exudates, moist mucous membranes. NECK: Trachea midline, full range of motion, supple. LUNGS: intubated, sedated HEART: tachycardia 110s ABDOMEN: wound vac EXTREMITIES: anasacra NEUROLOGICAL: intubated Laboratory Results - last 24 hr 03/31/19 04/01/19 04/03/19 10:58 12:59 05:00 WBC RBC Hgb Hct MCV MCH MCHC RDW Plt Count MPV Absolute Neuts (auto) Neutrophils % Lymphocytes % Monocytes % Eosinophils % Basophils % Nucleated RBC % Hypochromia 0 Platelet Estimate Increased Polychromasia 0 Poikilocytosis 0 Anisocytosis 1+ Microcytosis 1+ Macrocytosis 1+ Target Cells 1+ Ovalocytes 1+ Sodium Potassium Chloride Carbon Dioxide Anion Gap BUN Creatinine Est GFR (CKD-EPI)AfAm Est GFR (CKD-EPI)NonAf POC Glucometer Random Glucose Calcium Magnesium Total Bilirubin AST ALT Alkaline Phosphatase Total Protein Albumin Urine Color Urine Appearance Urine pH Ur Specific Philip Urine Protein Urine Glucose (UA) Urine Ketones Urine Blood Urine Nitrite Urine Bilirubin Urine Urobilinogen Ur Leukocyte Esterase Urine WBC (Auto) Urine RBC (Auto) U Epithel Cells (Auto) Urine Bacteria (Auto) B-Hydroxybutyrate 124.00 H Blood Type A NEGATIVE Antibody Screen Positive Antibody Identification Anti-d Crossmatch See Detail 04/03/19 04/03/19 04/03/19 05:00 14:01 17:22 WBC RBC Hgb Hct MCV MCH MCHC RDW Plt Count MPV Absolute Neuts (auto) Neutrophils % Lymphocytes % Monocytes % Eosinophils % Basophils % Nucleated RBC % Hypochromia Platelet Estimate Polychromasia Poikilocytosis Anisocytosis Microcytosis Macrocytosis Target Cells Ovalocytes Sodium Potassium Chloride Carbon Dioxide Anion Gap BUN Creatinine Est GFR (CKD-EPI)AfAm Est GFR (CKD-EPI)NonAf POC Glucometer 190 273 Random Glucose Calcium Magnesium Total Bilirubin AST ALT Alkaline Phosphatase Total Protein Albumin Urine Color Yellow Urine Appearance Clear Urine pH 6.0 Ur Specific Philip 1.025 Urine Protein 2+ H Urine Glucose (UA) Negative Urine Ketones 1+ H Urine Blood Negative Urine Nitrite Negative Urine Bilirubin 1+ H Urine Urobilinogen 0.2 Ur Leukocyte Esterase Negative Urine WBC (Auto) 0-3 Urine RBC (Auto) 0-3 U Epithel Cells (Auto) 2-5 Urine Bacteria (Auto) Few B-Hydroxybutyrate Blood Type Antibody Screen Antibody Identification Crossmatch 04/03/19 04/04/19 04/04/19 22:23 03:12 05:15 WBC 10.0 RBC 2.66 L Hgb 7.8 L Hct 22.9 L MCV 86.1 MCH 29.2 MCHC 34.0 RDW 23.1 H Plt Count 475 H MPV 7.5 Absolute Neuts (auto) 7.3 Neutrophils % 73.2 Lymphocytes % 18.0 D Monocytes % 4.7 Eosinophils % 3.3 Basophils % 0.8 Nucleated RBC % 0 Hypochromia Platelet Estimate Polychromasia Poikilocytosis Anisocytosis Microcytosis Macrocytosis Target Cells Ovalocytes Sodium Potassium Chloride Carbon Dioxide Anion Gap BUN Creatinine Est GFR (CKD-EPI)AfAm Est GFR (CKD-EPI)NonAf POC Glucometer 403 202 Random Glucose Calcium Magnesium Total Bilirubin AST ALT Alkaline Phosphatase Total Protein Albumin Urine Color Urine Appearance Urine pH Ur Specific Philip Urine Protein Urine Glucose (UA) Urine Ketones Urine Blood Urine Nitrite Urine Bilirubin Urine Urobilinogen Ur Leukocyte Esterase Urine WBC (Auto) Urine RBC (Auto) U Epithel Cells (Auto) Urine Bacteria (Auto) B-Hydroxybutyrate Blood Type Antibody Screen Antibody Identification Crossmatch 04/04/19 04/04/19 04/04/19 05:15 07:57 11:16 WBC RBC Hgb Hct MCV MCH MCHC RDW Plt Count MPV Absolute Neuts (auto) Neutrophils % Lymphocytes % Monocytes % Eosinophils % Basophils % Nucleated RBC % Hypochromia Platelet Estimate Polychromasia Poikilocytosis Anisocytosis Microcytosis Macrocytosis Target Cells Ovalocytes Sodium 149 H Potassium 3.1 L Chloride 112 H Carbon Dioxide 29 Anion Gap 8 BUN 18.4 H Creatinine 0.5 L Est GFR (CKD-EPI)AfAm 131.72 Est GFR (CKD-EPI)NonAf 113.65 POC Glucometer 347 238 Random Glucose 185 H Calcium 7.5 L Magnesium 1.8 Total Bilirubin 0.2 AST 14 L ALT 11 L Alkaline Phosphatase 126 H Total Protein 4.8 L Albumin 1.5 L Urine Color Urine Appearance Urine pH Ur Specific Philip Urine Protein Urine Glucose (UA) Urine Ketones Urine Blood Urine Nitrite Urine Bilirubin Urine Urobilinogen Ur Leukocyte Esterase Urine WBC (Auto) Urine RBC (Auto) U Epithel Cells (Auto) Urine Bacteria (Auto) B-Hydroxybutyrate Blood Type Antibody Screen Antibody Identification Crossmatch Active Medications Generic Name Dose Route Start Last Admin Trade Name Freq PRN Reason Stop Dose Admin Amino Acids 30 ml 03/26/19 15:30 04/04/19 09:08 Prosource No Carb Liquid Pkt PO 30 ml DAILY [facility] Administration Chlorhexidine Gluconate 15 ml 03/29/19 10:00 04/04/19 09:08 Peridex - MM 15 ml BID [facility] Administration Dextrose 4 gm 03/28/19 23:06 Glucose Tablet - PO PRN PRN HYPOGLYCEMIA Enoxaparin Sodium 80 mg 04/01/19 11:15 04/04/19 09:07 Lovenox - SQ 80 mg DAILY [facility] Administration Fentanyl 500 mcg/ Dextrose 100 mls @ 10 mls/hr 04/01/19 12:00 04/04/19 07:20 IVPB 50 mcg/hr TITR [facility] 10 mls/hr Administration 50 MCG/HR Propofol 1,000,000 mcg in 100 mls @ 1.287 mls/hr 04/01/19 12:00 04/03/19 12: 33 Diprivan - IVPB Not Given TITR [facility] Protocol 5 MCG/KG/MIN Midazolam HCl 100 mg in 100 mls @ 1 mls/hr 04/01/19 20:00 04/03/19 22:00 Midazolam 100mg/100ml-0.9%Nacl IVPB 10 mg/hr TITR [facility] 10 mls/hr Administration Protocol 1 MG/HR Dextrose 1,000 mls @ 75 mls/hr 04/03/19 10:30 04/03/19 12:19 D5w - IV Not Given [facility] Meropenem 500 mg/ Dextrose 100 mls @ 200 mls/hr 04/03/19 18:00 IVPB Q8H-IV [facility] Insulin Aspart 1 vial 04/02/19 11:00 04/04/19 11:17 Novolog Vial Sliding Scale - SQ 4 units Q4H [facility] Administration Protocol Ondansetron HCl 4 mg 03/11/19 20:31 03/14/19 05:07 Zofran Injection IVPUSH 4 mg Q6H PRN Administration NAUSEA AND/OR VOMITING Pantoprazole Sodium 40 mg 03/30/19 10:00 04/04/19 09:07 Protonix Iv IVPUSH 40 mg BID [facility] Administration Vancomycin HCl 125 mg 03/15/19 18:00 04/04/19 11:18 Vancomycin Oral Solution PO 125 mg Q6HPO [facility] Administration ASSESSMENT/PLAN: Problem List - Problems (1) DKA (diabetic ketoacidoses) Assessment/Plan: insulin d/cd, now on long short acting insulin q4, on d5 @ 75cc/hr with close monitoring of BGMs. Code(s): E13.10 - OTH DIABETES MELLITUS WITH KETOACIDOSIS WITHOUT COMA Qualifiers: Diabetes mellitus type: type 1 Diabetes mellitus complication detail: without coma Qualified Code(s): E10.10 - Type 1 diabetes mellitus with ketoacidosis without coma (2) Acute respiratory failure Assessment/Plan: respiratory failure, intubated and sedated on fentanyl and versed for possible trachestomy per family appreciate ICU level of care Code(s): J96.00 - ACUTE RESPIRATORY FAILURE, UNSP W HYPOXIA OR HYPERCAPNIA (3) Perforated abdominal viscus Assessment/Plan: s/p Ex-lap/RAYSHAWN/partial SB and omental resection with anastomosis/washout on 03/12 wound dihisecence noted at distal portion, vac in place dressing changes as per surgery on meropenem per ID Code(s): RSC3403 - (4) Abdominal pain Assessment/Plan: Patient is/p ex-lap/RAYSHAWN/partial SB and omental resection with anastomosis/ washout appreciate surgical and ID consultation Code(s): R10.9 - UNSPECIFIED ABDOMINAL PAIN Qualifiers: Abdominal location: generalized Qualified Code(s): R10.84 - Generalized abdominal pain (5) C. difficile diarrhea Assessment/Plan: vanco 125mg QID c/w rectal tube Code(s): A04.72 - ENTEROCOLITIS D/T CLOSTRIDIUM DIFFICILE, NOT SPCF RECUR (6) Diabetes Assessment/Plan: monitor bgms. on short acting novolog. Code(s): E11.9 - TYPE 2 DIABETES MELLITUS WITHOUT COMPLICATIONS (7) ESBL (extended spectrum beta-lactamase) producing bacteria infection Assessment/Plan: esbl in wound culture. maintain contact precautions. Code(s): A49.9 - BACTERIAL INFECTION, UNSPECIFIED; Z16.12 - EXTENDED SPECTRUM BETA LACTAMASE (ESBL) RESISTANCE (8) HTN (hypertension) Assessment/Plan: ICU monitoring with frequent checks Code(s): I10 - ESSENTIAL (PRIMARY) HYPERTENSION (9) Left-sided weakness Assessment/Plan: chronic left sided weakness. now with edema of both arms and anasarca Code(s): R53.1 - WEAKNESS (10) Acute Crohn's disease Assessment/Plan: lysis of adhesions, segmental resection of small intestinal perforation with side-side stapled anastomosis, abdominal washout, resection of portion of omentum. GI following. Code(s): K50.90 - CROHN'S DISEASE, UNSPECIFIED, WITHOUT COMPLICATIONS (11) Anemia Assessment/Plan: s/p 2 units of prbc. monitor cbc daily Code(s): D64.9 - ANEMIA, UNSPECIFIED (12) Respiratory failure Code(s): J96.90 - RESPIRATORY FAILURE, UNSP, UNSP W HYPOXIA OR HYPERCAPNIA (13) Prophylactic measure Assessment/Plan: NPO monitor electrolytes DVT on lovenox 110 Dispo requires ICU care full code Code(s): Z29.9 - ENCOUNTER FOR PROPHYLACTIC MEASURES, UNSPECIFIED Visit type - Emergency Visit Emergency Visit: Yes ED Registration Date: 03/09/19 Care time: The patient presented to the Emergency Department on the above date and was hospitalized for further evaluation of their emergent condition. - New Patient This patient is new to me today: No - Critical Care Critical Care patient: Yes Total Critical Care Time (in minutes): 45 Critical Care Statement: The care of this patient involved high complexity decision making to prevent further life threatening deterioration of the patient 's condition and/or to evaluate & treat vital organ system(s) failure or risk of failure. - Discharge Referral Referred to [facility] No
--- NOTE | 2019-04-04 13:25 | PN ---
Progress Note (short form) - Note Progress Note: Event Note: Goals of Care/Tracheostomy discussion Attendance: John Gomez (domestic partner), Sylvia Rosas (mother), Guillermina Rosas Senior (father), Aurther Sean Rosas (brother), Josselin Rosas (sister-in law ) I had the pleasure of talking w/ Ms. Bedoya family about her current medical condition. We spoke about her chronic and acute medical issues including but no limited to her brittle diabetes requiring frequent hospitalizations, Crohns disease c/b small bowel perforation, recurrent infections including peritonitis , c. diff and currently HCAP being treated w/ meropenem. We spoke at length about her respiratory failure and inability to be liberated for mechanical ventilation with re-intubations this admission including a cardiac arrest most likely 2/2 mucus plugging. At this point in her care she has been intubated over 2 weeks and would benefit from a tracheostomy to allow for prolonged weaning from mechanical ventilation and sedation. We discussed the possibilities moving forward with a trach. I told them that best case scenario would most likely be a prolonged vent and sedation wean but could liberate her from mechanical ventilation and decannulation this hospital stay. I feel that given her overall poor condition this is an unlikely scenario. I feel most likely we will have a hard time liberating her from mechanical ventilation given her complex medical conditions resulting in an inpatient rehabilitation stay where she would need a PEG placement for a prolonged weaning process. Given her overall infectious issues she would be at high risk of recurrent infections including pneumonia and urinary tract infections and that in her deconditioned state these infections would likely result in continued hospitalizations for treatment and could be fatal. They all stated that Ms. Rosas has been in very poor health over the last year. During that time she has stated she would never want to live in a snf on machines if there was no hope for improvement. They feel that if there is a small but reasonable chance she may recover with time that they would want to pursue trach placement at this time. They are also very realistic about her overall prognosis and if she were to have a severe decompensation where it was felt by the medical team that her overall chance of making a full recovery were to continue to diminish they would consider limiting care at that time. They asked about DNR and I said that it would be medically appropriate not to do CPR given her severe illness, that if she was to docompensate to the point her heart was to stop again that bring her back to her previous quality of life would be very unlikely. They will continue to discuss as a family and with the medical team about placing a DNR. Plan: -pursue tracheostomy -cont goals of care discussions -if patient was to have a severe decompensation in her health status they would want to be informed about the option to limit aggressive care. Yesi ACNP Pulm/CCM
[2019-04-04] MEDS: DEXTROSE 5%-WATER - 1,000 ML IV SCH (15:01)
[2019-04-04] MEDS: PROPOFOL 1,000,000 MCG/100 ML VIAL IVPB SCH (15:02)
[2019-04-04] MEDS: MIDAZOLAM IN 0.9 % SOD.CHLORID 100 MG/100 ML PLAST..BAG IVPB SCH (21:13)
[2019-04-05] MEDS: FENTANYL INJECTION 500 MCG in DEXTROSE 5%-WATER - 90 ML IVPB SCH ×3 (02:00→22:57)
[2019-04-05] MEDS: DEXTROSE 5%-WATER - 1,000 ML IV SCH (02:00)
[2019-04-05] MEDS: INSULIN SLIDING SCALE (NOVOLOG) 1 VIAL SQ SCH ×4 (02:34→21:19)
[2019-04-05] MEDS: VANCOMYCIN 250 MG/5 ML ORAL SOLUTION PO SCH ×3 (05:13→17:13)
[2019-04-05 06:35] LABS: HEMATOCRIT 25.1 % (32.4-45.2); HEMOGLOBIN 8.2 GM/dL (10.7-15.3); MCH 28.2 pg (25.7-33.7); MCHC 32.9 g/dl (32.0-36.0); MEAN CELL VOLUME 85.9 fl (80-96); MEAN PLT VOLUME 7.6 fl (7.5-11.1); PLATELET COUNT 484 K/MM3 (134-434); RBC 2.92 M/mm3 (3.60-5.2); RDW 23.1 % (11.6-15.6); WHITE BLOOD COUNT 11.5 K/mm3 (4.0-10.0)
[2019-04-05 07:05] LABS: BLOOD UREA NITROGEN 16.3 mg/dL (7-18); CALCIUM 7.6 mg/dL (8.5-10.1); CREATININE 0.3 mg/dL (0.55-1.3); MAGNESIUM 1.6 mg/dL (1.8-2.4); PHOSPHOROUS 2.3 mg/dL (2.5-4.9)
[2019-04-05] MEDS ORDERED: MAGNESIUM SULF 50% (8.12 MEQ/2 ML-1 GM VIAL) IVPB ONE (07:40)
[2019-04-05] MEDS ORDERED: POTASSIUM PHOSPHATE 30 MM in SODIUM CHLORIDE 250 ML IVPB ONE (07:40)
[2019-04-05] MEDS ORDERED: MAGNESIUM 1GM/D5W - 1 GM/100 ML IVPB IVPB ONE (07:50)
--- NOTE | 2019-04-05 08:04 | PN ---
Progress Note, Physician Chief Complaint: orally intubated and sedated. Awaiting tracheostomy History of Present Illness: Patient is a 48 year old female admitted for septic shock 2/ to bowel perforation. she is s/p exp lap with resection of ilial perforation on 03/12. In the past she has had multiple admission for DKA. This hospitalization complicated with multiple episodes of respiratory failure, bacteremia, c-diff and DKA. she also had an episode of pulseless activity on 03/19/19 and was intubated after CPR performed. - Current Medication List Current Medications: Active Medications Amino Acids (Prosource No Carb Liquid Pkt) 30 ml PO DAILY [facility] Last Admin: 04/04/19 09:08 Dose: 30 ml Chlorhexidine Gluconate (Peridex -) 15 ml MM BID [facility] Last Admin: 04/04/19 21:13 Dose: 15 ml Dextrose (Glucose Tablet -) 4 gm PO PRN PRN PRN Reason: HYPOGLYCEMIA Enoxaparin Sodium (Lovenox -) 80 mg SQ DAILY [facility] Last Admin: 04/04/19 09:07 Dose: 80 mg Fentanyl 500 mcg/ Dextrose 100 mls @ 10 mls/hr IVPB TITR [facility] Last Admin: 04/05/19 02:00 Dose: 50 mcg/hr, 10 mls/hr Propofol (Diprivan -) 1,000,000 mcg in 100 mls @ 1.287 mls/hr IVPB [facility]; Protocol Last Admin: 04/04/19 15:02 Dose: Not Given Midazolam HCl (Midazolam 100mg/100ml-0.9%Nacl) 100 mg in 100 mls @ 1 mls/hr IVPB [facility]; Protocol Last Titration: 04/05/19 01:00 Dose: 10 mg/hr, 10 mls/hr Dextrose (D5w -) 1,000 mls @ 75 mls/hr IV ASDIR [facility] Last Admin: 04/05/19 02:00 Dose: 75 mls/hr Meropenem 500 mg/ Dextrose 100 mls @ 200 mls/hr IVPB Q8H-IV [facility] Potassium Phosphate 30 mm/ (Sodium Chloride) 260 mls @ 65 mls/hr IVPB ONCE ONE Stop: 04/05/19 11:39 Insulin Aspart (Novolog Vial Sliding Scale -) 1 vial SQ Q4H [facility]; Protocol Last Admin: 04/05/19 06:20 Dose: 2 units Ondansetron HCl (Zofran Injection) 4 mg IVPUSH Q6H PRN PRN Reason: NAUSEA AND/OR VOMITING Last Admin: 03/14/19 05:07 Dose: 4 mg Pantoprazole Sodium (Protonix Iv) 40 mg IVPUSH BID [facility] Last Admin: 04/04/19 21:13 Dose: 40 mg Vancomycin HCl (Vancomycin Oral Solution) 125 mg PO Q6HPO [facility] Last Admin: 04/05/19 05:13 Dose: 125 mg - Objective Vital Signs: Vital Signs Temperature 96.8 F L 04/05/19 06:00 Pulse Rate 102 H 04/05/19 07:54 Respiratory Rate 24 H 04/05/19 07:54 Blood Pressure 95/59 L 04/05/19 07:54 O2 Sat by Pulse Oximetry (%) 100 04/04/19 20:31 Additional Findings/Remarks: Constitutional: Yes: Other (sedated and intubated) Eyes: Yes: WNL, Conjunctiva Clear HENT: Yes: WNL, Atraumatic, Normocephalic Neck: Yes: WNL, Supple, Trachea Midline Cardiovascular: Yes: Regular Rate and Rhythm, Tachycardia Respiratory: Yes: Intubated (orally on AC) Gastrointestinal: Yes: Normal Bowel Sounds, Soft,VAC dressings in place ...Rectal Exam: Yes: rectal tube with liquid stool Genitourinary: Yes: Lott Present Breast(s): Yes: WNL Musculoskeletal: Yes: Muscle Weakness Edema: Yes Edema: LUE: 2+, RUE: 2+, LLE: 2+, RLE: 2+ Peripheral Pulses WNL: Yes Peripheral Pulses: Left Radial: 1+, Right Radial: 1+, Left Doralis Pedis: 1+, Right Dorsalis Pedis: 1+, Left Femoral: 1+, Right Femoral: 1+ Integumentary: Yes: Bruising Wound/Incision: Yes: Unapproximated (dihescense at distal portion of abd incision) Vac in place Neurological: Yes: Other (sedated on dexmetatomidine) ...Motor Strength: RUE (noted movement) Psychiatric: Yes: Other (sedated on precedex) Labs: CBC, BMP 04/05/19 06:00 04/05/19 06:00 INR, PTT INR 0.95 (0.83-1.09) 03/26/19 06:00 Fibrinogen 359.0 mg/dL (238-498) 03/19/19 23:15 Problem List - Problems (1) HLD (hyperlipidemia) Assessment/Plan: NPO Code(s): E78.5 - HYPERLIPIDEMIA, UNSPECIFIED (2) Left-sided weakness Assessment/Plan: PT when no longer requiring ICU monitoring Code(s): R53.1 - WEAKNESS (3) History of open heart surgery Code(s): Z98.890 - OTHER SPECIFIED POSTPROCEDURAL STATES (4) Acute Crohn's disease Assessment/Plan: history of chrons followed at [facility], was suppose to start infliximab but never followed through off steroids Code(s): K50.90 - CROHN'S DISEASE, UNSPECIFIED, WITHOUT COMPLICATIONS (5) Gastroparesis Code(s): K31.84 - GASTROPARESIS (6) Abdominal pain Assessment/Plan: s/p bowel resection with viscous repair general surgery following wound dihensence noted at distal portion, vac in place dressing changes as per surgery Code(s): R10.9 - UNSPECIFIED ABDOMINAL PAIN Qualifiers: Abdominal location: generalized Qualified Code(s): R10.84 - Generalized abdominal pain (7) Small bowel obstruction Assessment/Plan: s/p perforated viscus repair dressing changes as per surgical team Code(s): K56.609 - UNSP INTESTNL OBST, UNSP TO PARTIAL VERSUS COMPLETE OBST (8) Cerebrovascular accident (CVA) Assessment/Plan: left sided weakness PT to follow when no longer requiring ICU care Code(s): I63.9 - CEREBRAL INFARCTION, UNSPECIFIED Qualifiers: CVA mechanism: unspecified Qualified Code(s): I63.9 - Cerebral infarction, unspecified (9) Chronic pain Assessment/Plan: sedated with precedex/ fentanyl/profolol Code(s): G89.29 - OTHER CHRONIC PAIN Qualifiers: Chronic pain type: chronic pain syndrome Qualified Code(s): G89.4 - Chronic pain syndrome (10) Prophylactic measure Assessment/Plan: FEN Jevity monitor electrolytes IVF DVT lovenox sq Dispo requires ICU care full code palliative care following prognosis critical discharge planning Code(s): Z29.9 - ENCOUNTER FOR PROPHYLACTIC MEASURES, UNSPECIFIED (11) Diabetes Assessment/Plan: insulin d/cd, now on long short acting insulin q4 c/w d5 @ 75cc/hr with close monitoring of BGMs. careful glycemic control with multiple episodes of DKA levemir on hold Code(s): E11.9 - TYPE 2 DIABETES MELLITUS WITHOUT COMPLICATIONS (12) Perforated abdominal viscus Assessment/Plan: s/p Ex-lap/RAYSHAWN/partial SB and omental resection with anastomosis/washou appreciate surgical and ID consultation c/w abx Code(s): BED2206 - (13) Hypoxia Assessment/Plan: Acute respiratory failure orally intuabted on mechanical ventilation tracheostomy possibley tmrw appreciate ICU level of care Code(s): R09.02 - HYPOXEMIA (14) C. difficile diarrhea Assessment/Plan: -Continue vancomycin PO -c/w rectal tube Code(s): A04.72 - ENTEROCOLITIS D/T CLOSTRIDIUM DIFFICILE, NOT SPCF RECUR (15) ESBL (extended spectrum beta-lactamase) producing bacteria infection Assessment/Plan: ESBL in wound appreciate ID consultation -Dr. Pimentel c/w linezolid, vanco, sylvester - Cx + LF neg bacilli - UCx + VRE - CDiff Ag and toxin pos - WBC down to 8.5 Code(s): A49.9 - BACTERIAL INFECTION, UNSPECIFIED; Z16.12 - EXTENDED SPECTRUM BETA LACTAMASE (ESBL) RESISTANCE (16) Clostridium difficile diarrhea Code(s): A04.72 - ENTEROCOLITIS D/T CLOSTRIDIUM DIFFICILE, NOT SPCF RECUR (17) Admitted to intensive care unit Assessment/Plan: appreciate ICU level of care Code(s): Z78.9 - OTHER SPECIFIED HEALTH STATUS Visit type - Emergency Visit Emergency Visit: Yes ED Registration Date: 03/09/19 Care time: The patient presented to the Emergency Department on the above date and was hospitalized for further evaluation of their emergent condition. - New Patient This patient is new to me today: No - Critical Care Critical Care patient: Yes Total Critical Care Time (in minutes): 40 Critical Care Statement: The care of this patient involved high complexity decision making to prevent further life threatening deterioration of the patient 's condition and/or to evaluate & treat vital organ system(s) failure or risk of failure. - Discharge Referral Referred to [facility] No
[2019-04-05] MEDS: ENOXAPARIN NA (PORCINE) 80 MG/0.8 ML DISP.SYRIN SQ SCH (09:46)
[2019-04-05] MEDS: CHLORHEXIDINE GLUCONATE 0.12% 15ML CUP MM SCH ×2 (09:46→21:11)
[2019-04-05] MEDS: PANTOPRAZOLE SODIUM 40 MG VIAL IVPUSH SCH ×2 (09:46→21:11)
[2019-04-05] MEDS: AMINO ACIDS/PROTEIN HYDROLYS 30 ML LIQUID.PKT PO SCH (09:46)
[2019-04-05] MEDS: MIDAZOLAM IN 0.9 % SOD.CHLORID 100 MG/100 ML PLAST..BAG IVPB SCH ×3 (09:55→22:58)
[2019-04-05] MEDS ORDERED: INSULIN (NOVOLOG) ASPART 100 UNITS/ML 10ML VIAL ONE (10:15)
[2019-04-05] MEDS: INSULIN REGULAR 100 UNITS in SODIUM CHLORIDE 99 ML IVPB SCH (10:22)
[2019-04-05] MEDS: DEXTROSE 5%-LACTATED RINGERS 1,000 ML IV SCH (10:52)
--- NOTE | 2019-04-05 10:55 | PN ---
Teaching Attending Note Name of Resident: Harriett Hale ATTENDING PHYSICIAN STATEMENT I saw and evaluated the patient. I reviewed the resident's note and discussed the case with the resident. I agree with the resident's findings and plan as documented. SUBJECTIVE: Patient seen and examined in the ICU. Remains intubated and sedated. AC Mode of vent, 40% FiO2. No pressors. Intake & Output 04/02/19 04/03/19 04/04/19 04/05/19 23:59 23:59 23:59 23:59 Intake Total 3121.5 3699 2375 2340 Output Total 1250 1900 2810 400 Balance 1871.5 1799 -435 1940 Weight 97 lb 5 oz 98 lb 118 lb 9.739 oz 118 lb 9.739 oz Last Vital Signs Temp Pulse Resp BP Pulse Ox 96.8 F L 103 H 28 H 95/59 L 100 04/05/19 06:00 04/05/19 08:23 04/05/19 08:23 04/05/19 07:54 04/05/19 08:23 Active Medications Amino Acids (Prosource No Carb Liquid Pkt) 30 ml PO DAILY [facility] Last Admin: 04/05/19 09:46 Dose: 30 ml Chlorhexidine Gluconate (Peridex -) 15 ml MM BID [facility] Last Admin: 04/05/19 09:46 Dose: 15 ml Dextrose (Glucose Tablet -) 4 gm PO PRN PRN PRN Reason: HYPOGLYCEMIA Enoxaparin Sodium (Lovenox -) 80 mg SQ DAILY [facility] Last Admin: 04/05/19 09:46 Dose: 80 mg Fentanyl 500 mcg/ Dextrose 100 mls @ 10 mls/hr IVPB TITR [facility] Last Admin: 04/05/19 02:00 Dose: 50 mcg/hr, 10 mls/hr Propofol (Diprivan -) 1,000,000 mcg in 100 mls @ 1.287 mls/hr IVPB TITR [facility]; Protocol Last Admin: 04/04/19 15:02 Dose: Not Given Midazolam HCl (Midazolam 100mg/100ml-0.9%Nacl) 100 mg in 100 mls @ 1 mls/hr IVPB TITR [facility]; Protocol Last Admin: 04/05/19 09:55 Dose: 10 mg/hr, 10 mls/hr Meropenem 500 mg/ Dextrose 100 mls @ 200 mls/hr IVPB Q8H-IV [facility] Potassium Phosphate 30 mm/ (Sodium Chloride) 260 mls @ 65 mls/hr IVPB ONCE ONE Stop: 04/05/19 11:39 Last Admin: 04/05/19 09:45 Dose: 65 mls/hr Dextrose/Lactated Ringer's (D5-Lr -) 1,000 mls @ 75 mls/hr IV ASDIR [facility] Last Admin: 04/05/19 10:52 Dose: 75 mls/hr Insulin Human Regular 100 (units/ Sodium Chloride) 100 mls @ 5.38 mls/hr IVPB TITR [facility]; Protocol Last Admin: 04/05/19 10:22 Dose: 0.1 units/kg/hr, 5.38 mls/hr Ondansetron HCl (Zofran Injection) 4 mg IVPUSH Q6H PRN PRN Reason: NAUSEA AND/OR VOMITING Last Admin: 03/14/19 05:07 Dose: 4 mg Pantoprazole Sodium (Protonix Iv) 40 mg IVPUSH BID [facility] Last Admin: 04/05/19 09:46 Dose: 40 mg Vancomycin HCl (Vancomycin Oral Solution) 125 mg PO Q6HPO [facility] Last Admin: 04/05/19 05:13 Dose: 125 mg Exam: General intubated on vent minimally responsive due to sedation HEENT: PERRL, no JVD, anicteric sclera CV: RRR Pulm: Vented, coarse bilateral breath sounds Abd: SNTND, wound vac in place c/d/i +BS Ext: UE +3 edema, LE +1 edmea Neuro: Sedated Laboratory Results - last 24 hr 04/04/19 04/04/19 04/04/19 11:16 15:05 17:59 WBC RBC Hgb Hct MCV MCH MCHC RDW Plt Count MPV Sodium Potassium Chloride Carbon Dioxide Anion Gap BUN Creatinine Est GFR (CKD-EPI)AfAm Est GFR (CKD-EPI)NonAf POC Glucometer 238 161 238 Random Glucose Calcium Phosphorus Magnesium 04/04/19 04/05/19 04/05/19 23:14 02:30 05:50 WBC RBC Hgb Hct MCV MCH MCHC RDW Plt Count MPV Sodium Potassium Chloride Carbon Dioxide Anion Gap BUN Creatinine Est GFR (CKD-EPI)AfAm Est GFR (CKD-EPI)NonAf POC Glucometer 389 110 176 Random Glucose Calcium Phosphorus Magnesium 04/05/19 04/05/19 04/05/19 06:00 06:00 10:05 WBC 11.5 H RBC 2.92 L Hgb 8.2 L Hct 25.1 L MCV 85.9 MCH 28.2 MCHC 32.9 RDW 23.1 H Plt Count 484 H MPV 7.6 Sodium 141 Potassium 4.0 Chloride 103 Carbon Dioxide 31 Anion Gap 7 L BUN 16.3 Creatinine 0.3 L Est GFR (CKD-EPI)AfAm 155.82 Est GFR (CKD-EPI)NonAf 134.44 POC Glucometer 571 Random Glucose 210 H Calcium 7.6 L Phosphorus 2.3 L Magnesium 1.6 L ASSESSMENT AND PLAN: s/p Cardiopulmonary Arrest r/o Anoxic Brain Injury Acute Hypoxic Respiratory Failure Perforated Small Bowel s/p ex-lap/RAYSHAWN/segmental SB resection Crohn's Disease Peritonitis +C diff Colitis Septic Shock Lactic Acidosis Volume Overload h/o PE HTN DM Hyperlipidemia Anemia Thrombocytopenia h/o CVA - Multiple reintubations for resp failure: Will need Tracheostomy: To contact surgery today to schedule - Daily sedation vacations - Antibiotics per ID: meropenem - Daily assessment for Lasix - monitor urine output, creatinine - replete lytes - off pressors, maintain MAP > 65 - continue anticoagulation - DVT/GI prophylaxis - Cont enteral feeds - Requires continued ICU monitoring Dr Otero Critical care time spent in reviewing chart, evaluating patient and formulating plan - 36 minutes.
--- NOTE | 2019-04-05 12:33 | PN ---
Progress Note, Physician - Current Medication List Current Medications: Active Medications Amino Acids (Prosource No Carb Liquid Pkt) 30 ml PO DAILY [facility] Last Admin: 04/05/19 09:46 Dose: 30 ml Chlorhexidine Gluconate (Peridex -) 15 ml MM BID [facility] Last Admin: 04/05/19 09:46 Dose: 15 ml Dextrose (Glucose Tablet -) 4 gm PO PRN PRN PRN Reason: HYPOGLYCEMIA Enoxaparin Sodium (Lovenox -) 80 mg SQ DAILY [facility] Last Admin: 04/05/19 09:46 Dose: 80 mg Fentanyl 500 mcg/ Dextrose 100 mls @ 10 mls/hr IVPB TITR [facility] Last Admin: 04/05/19 02:00 Dose: 50 mcg/hr, 10 mls/hr Propofol (Diprivan -) 1,000,000 mcg in 100 mls @ 1.287 mls/hr IVPB TITR [facility]; Protocol Last Admin: 04/04/19 15:02 Dose: Not Given Midazolam HCl (Midazolam 100mg/100ml-0.9%Nacl) 100 mg in 100 mls @ 1 mls/hr IVPB TITR [facility]; Protocol Last Admin: 04/05/19 09:55 Dose: 10 mg/hr, 10 mls/hr Meropenem 500 mg/ Dextrose 100 mls @ 200 mls/hr IVPB Q8H-IV [facility] Dextrose/Lactated Ringer's (D5-Lr -) 1,000 mls @ 75 mls/hr IV ASDIR [facility] Last Admin: 04/05/19 10:52 Dose: 75 mls/hr Insulin Human Regular 100 (units/ Sodium Chloride) 100 mls @ 5.38 mls/hr IVPB TITR [facility]; Protocol Last Admin: 04/05/19 10:22 Dose: 0.1 units/kg/hr, 5.38 mls/hr Ondansetron HCl (Zofran Injection) 4 mg IVPUSH Q6H PRN PRN Reason: NAUSEA AND/OR VOMITING Last Admin: 03/14/19 05:07 Dose: 4 mg Pantoprazole Sodium (Protonix Iv) 40 mg IVPUSH BID [facility] Last Admin: 04/05/19 09:46 Dose: 40 mg Vancomycin HCl (Vancomycin Oral Solution) 125 mg PO Q6HPO [facility] Last Admin: 04/05/19 05:13 Dose: 125 mg - Objective Vital Signs: Vital Signs Temperature 96.8 F L 04/05/19 06:00 Pulse Rate 103 H 04/05/19 08:23 Respiratory Rate 31 H 04/05/19 12:10 Blood Pressure 95/59 L 04/05/19 07:54 O2 Sat by Pulse Oximetry (%) 99 04/05/19 10:50 Labs: CBC, BMP 04/05/19 06:00 04/05/19 06:00 INR, PTT INR 0.95 (0.83-1.09) 03/26/19 06:00 Fibrinogen 359.0 mg/dL (238-498) 03/19/19 23:15
[2019-04-05] MEDS: PROPOFOL 1,000,000 MCG/100 ML VIAL IVPB SCH (12:45)
--- NOTE | 2019-04-05 13:06 | PN ---
Progress Note (short form) - Note Progress Note: Thoracic Surgery: Consulted for possible tracheostomy tomorrow. Will coordinate with ICU team.
--- NOTE | 2019-04-05 15:23 | PN ---
Physical Exam: SUBJECTIVE: Patient seen and examined at bedside. pt is intubated and sedated. OBJECTIVE: Vital Signs Period Temp Pulse Resp BP Sys/Rapp Pulse Ox Last 24 Hr 96.8 F-100.2 F 88-109 21-31 87-119/54-72 99-100 GENERAL: The patient is sedated and intubated EYES: PERRL LUNGS: vent sounds b/l, L>R, anterior R rhonchi, no wheezes, no accessory muscle use. HEART:tachycardic and regular rhythm, S1, S2 without murmur, rub or gallop. ABDOMEN: Soft, nontender, nondistended, normoactive bowel sounds, no guarding EXTREMITIES: 2+ pulses, warm, well-perfused, no edema. SKIN: Warm, dry, normal turgor, no rashes or lesions noted Laboratory Last Values WBC 11.5 K/mm3 (4.0-10.0) H 04/05/19 06:00 RBC 2.92 M/mm3 (3.60-5.2) L 04/05/19 06:00 Hgb 8.2 GM/dL (10.7-15.3) L 04/05/19 06:00 Hct 25.1 % (32.4-45.2) L 04/05/19 06:00 MCV 85.9 fl (80-96) 04/05/19 06:00 MCH 28.2 pg (25.7-33.7) 04/05/19 06:00 MCHC 32.9 g/dl (32.0-36.0) 04/05/19 06:00 RDW 23.1 % (11.6-15.6) H 04/05/19 06:00 Plt Count 484 K/MM3 (134-434) H 04/05/19 06:00 MPV 7.6 fl (7.5-11.1) 04/05/19 06:00 Absolute Neuts (auto) 7.3 K/mm3 (1.5-8.0) 04/04/19 05:15 Total Counted 100 03/19/19 21:45 Neutrophils % 73.2 % (42.8-82.8) 04/04/19 05:15 Neutrophils % (Manual) 72.7 % (42.8-82.8) 03/21/19 05:30 Band Neutrophils % 1.0 % 03/21/19 05:30 Lymphocytes % 18.0 % (8-40) D 04/04/19 05:15 Lymphocytes % (Manual) 19.2 % (8-40) D 03/21/19 05:30 Monocytes % 4.7 % (3.8-10.2) 04/04/19 05:15 Monocytes % (Manual) 3 % (3.8-10.2) L 03/21/19 05:30 Eosinophils % 3.3 % (0-4.5) 04/04/19 05:15 Eosinophils % (Manual) 3.1 % (0-4.5) D 03/21/19 05:30 Basophils % 0.8 % (0-2.0) 04/04/19 05:15 Basophils % (Manual) 0.0 % (0-2.0) 03/21/19 05:30 Myelocytes % (Man) 0 % (0-2) D 03/21/19 05:30 Promyelocytes % (Man) 0 % (0-2) 03/21/19 05:30 Blast Cells % (Manual) 0 % (0-0) 03/21/19 05:30 Nucleated RBC % 0 % (0-0) 04/04/19 05:15 Metamyelocytes 1 % (0-2) D 03/21/19 05:30 Differential Comment Man diff performed 03/14/19 19:45 Hypochromia 0 04/03/19 05:00 Toxic Granulation 2+ 03/18/19 05:30 Dohle Bodies 1+ 03/14/19 19:45 Platelet Estimate Increased 04/03/19 05:00 Platelet Comment Giant platelets 03/27/19 06:00 Polychromasia 0 04/03/19 05:00 Poikilocytosis 0 04/03/19 05:00 Anisocytosis 1+ 04/03/19 05:00 Microcytosis 1+ 04/03/19 05:00 Macrocytosis 1+ 04/03/19 05:00 Spherocytes 1+ 03/27/19 06:00 Target Cells 1+ 04/03/19 05:00 Tear Drop Cells 1+ 03/27/19 06:00 Ovalocytes 1+ 04/03/19 05:00 Collins Cells 1+ 03/18/19 05:30 Acanthocytes (Spur) 1+ 03/12/19 06:00 Schistocytes 1+ 03/19/19 15:40 ESR 47 mm/hr (0-20) H 03/11/19 05:10 PT with INR 11.20 SEC (9.7-13.0) 03/26/19 06:00 INR 0.95 (0.83-1.09) 03/26/19 06:00 PTT (Actin FS) 29.7 SECONDS (25.2-36.5) 03/26/19 06:00 Fibrinogen 359.0 mg/dL (238-498) 03/19/19 23:15 Anticoagulation Therapy No Result Required. 04/02/19 06:05 Puncture Site Left radial 04/02/19 06:05 ABG pH 7.40 (7.35-7.45) 04/02/19 06:05 ABG pCO2 at Pt Temp 39.5 mmHg (35-45) 04/02/19 06:05 ABG pO2 at Pt Temp 132 mmHg (80-100) H 04/02/19 06:05 ABG HCO3 24.2 mmol/L (22-27) 04/02/19 06:05 ABG O2 Sat (Measured) 99.1 % (95-98) H 04/02/19 06:05 ABG O2 Content 11.9 % vol 04/02/19 06:05 ABG Base Excess 0 meq/l (-2-2) 04/02/19 06:05 Atul Test Positive 04/02/19 06:05 O2 Delivery Device Mech vent 04/02/19 06:05 Oxygen Flow Rate 50 04/02/19 06:05 Vent Mode A/c 04/02/19 06:05 Vent Rate 14 04/02/19 06:05 Mechanical Rate No Result Required. 04/02/19 06:05 PEEP 5.0 cmH2O 04/02/19 06:05 Pressure Support Vent 350 04/02/19 06:05 Sodium 141 mmol/L (136-145) 04/05/19 06:00 Potassium 4.0 mmol/L (3.5-5.1) 04/05/19 06:00 Chloride 103 mmol/L (98-107) 04/05/19 06:00 Carbon Dioxide 31 mmol/L (21-32) 04/05/19 06:00 Anion Gap 7 MMOL/L (8-16) L 04/05/19 06:00 BUN 16.3 mg/dL (7-18) 04/05/19 06:00 Creatinine 0.3 mg/dL (0.55-1.3) L 04/05/19 06:00 Est GFR (CKD-EPI)AfAm 155.82 04/05/19 06:00 Est GFR (CKD-EPI)NonAf 134.44 04/05/19 06:00 POC Glucometer 251 UNITS (80-120) 04/05/19 13:35 Random Glucose 210 mg/dL (74-106) H 04/05/19 06:00 Hemoglobin A1c % 9.8 % (4.2-6.3) H 03/10/19 07:20 Lactic Acid 1.8 mmol/L (0.4-2.0) 04/02/19 01:00 Calcium 7.6 mg/dL (8.5-10.1) L 04/05/19 06:00 Phosphorus 2.3 mg/dL (2.5-4.9) L 04/05/19 06:00 Magnesium 1.6 mg/dL (1.8-2.4) L 04/05/19 06:00 Iron 125 ug/dL (50-175) 03/20/19 17:00 TIBC 124 ug/dL (250-450) L 03/20/19 17:00 Iron Saturation 100 % (17.5-39) H 03/20/19 17:00 Unsaturated IBC -1 ug/dL (200-275) L 03/20/19 17:00 Ferritin 220.2 ng/ml (8-388) 03/20/19 17:00 Total Bilirubin 0.2 mg/dL (0.2-1) 04/04/19 05:15 AST 14 U/L (15-37) L 04/04/19 05:15 ALT 11 U/L (13-61) L 04/04/19 05:15 Alkaline Phosphatase 126 U/L (45-117) H 04/04/19 05:15 Creatine Kinase 109 U/L (26-192) 03/19/19 15:40 Troponin I 1.94 ng/ml (0.00-0.05) H* 03/19/19 23:15 C-Reactive Protein 43.2 MG/DL (0.00-0.3) H 03/11/19 05:10 Total Protein 4.8 g/dl (6.4-8.2) L 04/04/19 05:15 Albumin 1.5 g/dl (3.4-5.0) L 04/04/19 05:15 Prealbumin 7.0 mg/dl (20-40) L 03/19/19 05:00 Lipase 58 U/L (73-393) L 03/09/19 17:55 Beta-Hydroxybutyrate 0.9 mg/dL (0.2-2.8) 03/22/19 05:10 Urine Color Yellow 04/03/19 05:00 Urine Appearance Clear 04/03/19 05:00 Urine pH 6.0 (5.0-8.0) 04/03/19 05:00 Ur Specific [place] 1.025 (1.010-1.035) 04/03/19 05:00 Urine Protein 2+ (NEGATIVE) H 04/03/19 05:00 Urine Glucose (UA) Negative (NEGATIVE) 04/03/19 05:00 Urine Ketones 1+ (NEGATIVE) H 04/03/19 05:00 Urine Blood Negative (NEGATIVE) 04/03/19 05:00 Urine Nitrite Negative (NEGATIVE) 04/03/19 05:00 Urine Bilirubin 1+ (NEGATIVE) H 04/03/19 05:00 Urine Urobilinogen 0.2 mg/dL (0.2-1.0) 04/03/19 05:00 Ur Leukocyte Esterase Negative (NEGATIVE) 04/03/19 05:00 Urine WBC (Auto) 0-3 /hpf (0-5) 04/03/19 05:00 Urine RBC (Auto) 0-3 /hpf (0-4) 04/03/19 05:00 U Epithel Cells (Auto) 2-5 /HPF (0-5/HPF) 04/03/19 05:00 Urine Bacteria (Auto) Few /hpf (NEGATIVE) 04/03/19 05:00 Urine HCG, Qual Negative 03/09/19 18:28 Stool Occult Blood Positive (NEGATIVE) 03/20/19 05:30 Acetone, Qual Positive moderate 2+ (NEGATIVE) H 04/01/19 08:27 B-Hydroxybutyrate 124.00 mmol/L (.) H 04/01/19 12:59 Blood Type A NEGATIVE 03/31/19 10:58 Antibody Screen Positive 03/31/19 10:58 Antibody Identification Anti-d 03/31/19 10:58 Antigen Identification No Result Required. 03/31/19 10:58 Crossmatch See Detail 03/31/19 10:58 Current Medications Amino Acids (Prosource No Carb Liquid Pkt) 30 ml PO DAILY [facility] Last Admin: 04/05/19 09:46 Dose: 30 ml Chlorhexidine Gluconate (Peridex -) 15 ml MM BID [facility] Last Admin: 04/05/19 09:46 Dose: 15 ml Dextrose (Glucose Tablet -) 4 gm PO PRN PRN PRN Reason: HYPOGLYCEMIA Enoxaparin Sodium (Lovenox -) 80 mg SQ DAILY [facility] Last Admin: 04/05/19 09:46 Dose: 80 mg Fentanyl 500 mcg/ Dextrose 100 mls @ 10 mls/hr IVPB TITR [facility] Last Admin: 04/05/19 12:45 Dose: Not Given Propofol (Diprivan -) 1,000,000 mcg in 100 mls @ 1.287 mls/hr IVPB TITR [facility]; Protocol Last Admin: 04/05/19 12:45 Dose: Not Given Midazolam HCl (Midazolam 100mg/100ml-0.9%Nacl) 100 mg in 100 mls @ 1 mls/hr IVPB TITR [facility]; Protocol Last Admin: 04/05/19 09:55 Dose: 10 mg/hr, 10 mls/hr Meropenem 500 mg/ Dextrose 100 mls @ 200 mls/hr IVPB Q8H-IV [facility] Dextrose/Lactated Ringer's (D5-Lr -) 1,000 mls @ 75 mls/hr IV ASDIR [facility] Last Admin: 04/05/19 10:52 Dose: 75 mls/hr Insulin Human Regular 100 (units/ Sodium Chloride) 100 mls @ 5.38 mls/hr IVPB TITR [facility]; Protocol Last Admin: 04/05/19 10:22 Dose: 0.1 units/kg/hr, 5.38 mls/hr Ondansetron HCl (Zofran Injection) 4 mg IVPUSH Q6H PRN PRN Reason: NAUSEA AND/OR VOMITING Last Admin: 03/14/19 05:07 Dose: 4 mg Pantoprazole Sodium (Protonix Iv) 40 mg IVPUSH BID [facility] Last Admin: 04/05/19 09:46 Dose: 40 mg Vancomycin HCl (Vancomycin Oral Solution) 125 mg PO Q6HPO [facility] Last Admin: 04/05/19 05:13 Dose: 125 mg ASSESSMENT/PLAN: This is a 48F PMH IDDM, PE on xarelto, frequent DKA, HTN, HLD, CVA w/ left sided weakness, recent hospitalization at [facility] September 2018 admitted to ICU for SBO. Developed pneumoperitoneum s/p ex-lap. pt was extubated and required reintubation 2/2 respiratory failure Neuro : -sedated - Tylenol for pain/fever ctrl - dilaudid 1 mg q4h PRN for pain control Cardio : hx of transient a-fib with RVR -tachycadic - No longer hypotensive - Maintain MAP >65. currently not on pressors - central line in place (RIJ 04/01) Respiratory: Acute respiratory failure -intubated -family agreed on continuing with trach for pt, may have trach tomorrow. will keep npo after midnight, hold lovenox. GI : Crohn's flair likely, pneumoperitoneum s/p ex-lap - GI recs appreciated continuing w/ C diff management -CT abdomen and pelvis with contrast via NG tube and IV contrast negative for a fluid collection/other cause of infection. - Antibiotics per ID c/w vanco, merrem - tube feeds d/c pivot to 20cc/hr, 50cc/hr free water. hold tube feeds after midnight ID: C diff, + sputum cx - c/w vanco for 1 week after other abx are d/c, c/w daptomycin - CT abd pelvis negative for abscess -afebrile for 24 hrs -sputum cx: gram neg lactose fermenting bacteria Endocrine: DKA -insulin drip restarted today for better glycemic control -c/w D5NS F/E/N - Lytes in AM, replete PRN - Monitor I/Os - Monitor UrO, Cr PPx: SCDs , hold lovenox for trach tomorrow Dispo: continue ICU monitoring, for trach tomorrow Visit type - Emergency Visit Emergency Visit: No - New Patient This patient is new to me today: No - Critical Care Critical Care patient: Yes Total Critical Care Time (in minutes): 36 Critical Care Statement: The care of this patient involved high complexity decision making to prevent further life threatening deterioration of the patient 's condition and/or to evaluate & treat vital organ system(s) failure or risk of failure. ATTENDING PHYSICIAN STATEMENT I saw and evaluated the patient. I reviewed the resident's note and discussed the case with the resident. I agree with the resident's findings and plan as documented. SUBJECTIVE: OBJECTIVE: ASSESSMENT AND PLAN:
[2019-04-05] MEDS ORDERED: fentaNYL CITRATE 250 MCG/5 ML VIAL ONE ×2 (17:18→22:52)
--- NOTE | 2019-04-05 20:09 | PN ---
Progress Note, Physician History of Present Illness: Covering for Dr. Krishnamurthy: Pt s/p small bowel resection for likely Crohn's related perforation POD24, with multiple underlying medical problems, critically ill, intubated and sedated with C. diff, extubation failure, pneumonia and midline wounds with fascial dehiscence being treated with VAC dressings. VAC last changed 3d ago, due today. Per notes, she is pending tracheostomy tomorrow. She is getting tube feeds via Dobhoff. Not responsive, though she does move/grimace a bit to pain/ being moved some. - Current Medication List Current Medications: Active Medications Amino Acids (Prosource No Carb Liquid Pkt) 30 ml PO DAILY [facility] Last Admin: 04/05/19 09:46 Dose: 30 ml Chlorhexidine Gluconate (Peridex -) 15 ml MM BID [facility] Last Admin: 04/05/19 09:46 Dose: 15 ml Dextrose (Glucose Tablet -) 4 gm PO PRN PRN PRN Reason: HYPOGLYCEMIA Enoxaparin Sodium (Lovenox -) 80 mg SQ DAILY [facility] Last Admin: 04/05/19 09:46 Dose: 80 mg Fentanyl 500 mcg/ Dextrose 100 mls @ 10 mls/hr IVPB TITR [facility] Last Admin: 04/05/19 12:45 Dose: Not Given Propofol (Diprivan -) 1,000,000 mcg in 100 mls @ 1.287 mls/hr IVPB TITR [facility]; Protocol Last Admin: 04/05/19 12:45 Dose: Not Given Midazolam HCl (Midazolam 100mg/100ml-0.9%Nacl) 100 mg in 100 mls @ 1 mls/hr IVPB TITR [facility]; Protocol Last Admin: 04/05/19 09:55 Dose: 10 mg/hr, 10 mls/hr Meropenem 500 mg/ Dextrose 100 mls @ 200 mls/hr IVPB Q8H-IV [facility] Dextrose/Lactated Ringer's (D5-Lr -) 1,000 mls @ 75 mls/hr IV ASDIR [facility] Last Admin: 04/05/19 10:52 Dose: 75 mls/hr Insulin Human Regular 100 (units/ Sodium Chloride) 100 mls @ 5.38 mls/hr IVPB TITR [facility]; Protocol Last Admin: 04/05/19 10:22 Dose: 0.1 units/kg/hr, 5.38 mls/hr Insulin Aspart (Novolog Vial Sliding Scale -) 1 vial SQ Q4H [facility]; Protocol Last Admin: 04/05/19 17:13 Dose: 6 units Ondansetron HCl (Zofran Injection) 4 mg IVPUSH Q6H PRN PRN Reason: NAUSEA AND/OR VOMITING Last Admin: 03/14/19 05:07 Dose: 4 mg Pantoprazole Sodium (Protonix Iv) 40 mg IVPUSH BID [facility] Last Admin: 04/05/19 09:46 Dose: 40 mg Vancomycin HCl (Vancomycin Oral Solution) 125 mg PO Q6HPO [facility] Last Admin: 04/05/19 17:13 Dose: 125 mg - Objective Vital Signs: Vital Signs Temperature 98.9 F 04/05/19 19:00 Pulse Rate 106 H 04/05/19 19:00 Respiratory Rate 20 04/05/19 19:56 Blood Pressure 104/61 04/05/19 19:00 O2 Sat by Pulse Oximetry (%) 100 04/05/19 19:56 Constitutional: Yes: Well Nourished, No Distress Eyes: Yes: Other (eyes closed) HENT: Yes: Other (Dobhoff NG in place with feeds) Respiratory: Yes: Intubated, Mechanically Ventilated Gastrointestinal: Yes: Soft, Other (VAC in place - changed). No: Distention ...Rectal Exam: Yes: Other (rectal tube in place with liquid dark stool in tubing) Genitourinary: Yes: Lott Present. No: Hematuria Extremities: No: Cool, Cyanosis Edema: Yes Edema: LUE: 2+, RUE: 2+, LLE: 1+, RLE: 1+ Integumentary: Yes: Incision (midline with VAC). No: Jaundice, Rash Wound/Incision: Yes: Dressing Dry and Intact (VAC with good seal at -125mm cont pressure), Dressing Removed (and changed - white foam strips placed in base of upper and lower wounds, small black foam strips over that, bridged over drape on skin, good seal obtained), Draining (small amount serous drainage in canister ), Unapproximated (open upper and lower wounds small and shallow, granulating, with some fascial suture visible in both, few areas of necrotic fascia (white/ yellow) but overall very clean with pink/red hollis and bases with granulation filling in) Neurological: Yes: Unresponsive Labs: CBC, BMP 04/05/19 06:00 04/05/19 06:00 CMP Sodium 141 mmol/L (136-145) 04/05/19 06:00 Potassium 4.0 mmol/L (3.5-5.1) 04/05/19 06:00 Chloride 103 mmol/L (98-107) 04/05/19 06:00 Carbon Dioxide 31 mmol/L (21-32) 04/05/19 06:00 Anion Gap 7 MMOL/L (8-16) L 04/05/19 06:00 BUN 16.3 mg/dL (7-18) 04/05/19 06:00 Creatinine 0.3 mg/dL (0.55-1.3) L 04/05/19 06:00 Est GFR (CKD-EPI)AfAm 155.82 04/05/19 06:00 Est GFR (CKD-EPI)NonAf 134.44 04/05/19 06:00 POC Glucometer 260 UNITS (80-120) 04/05/19 17:06 Random Glucose 210 mg/dL (74-106) H 04/05/19 06:00 Hemoglobin A1c % 9.8 % (4.2-6.3) H 03/10/19 07:20 Lactic Acid 1.8 mmol/L (0.4-2.0) 04/02/19 01:00 Calcium 7.6 mg/dL (8.5-10.1) L 04/05/19 06:00 Phosphorus 2.3 mg/dL (2.5-4.9) L 04/05/19 06:00 Magnesium 1.6 mg/dL (1.8-2.4) L 04/05/19 06:00 Iron 125 ug/dL (50-175) 03/20/19 17:00 TIBC 124 ug/dL (250-450) L 03/20/19 17:00 Iron Saturation 100 % (17.5-39) H 03/20/19 17:00 Unsaturated IBC -1 ug/dL (200-275) L 03/20/19 17:00 Ferritin 220.2 ng/ml (8-388) 03/20/19 17:00 Total Bilirubin 0.2 mg/dL (0.2-1) 04/04/19 05:15 AST 14 U/L (15-37) L 04/04/19 05:15 ALT 11 U/L (13-61) L 04/04/19 05:15 Alkaline Phosphatase 126 U/L (45-117) H 04/04/19 05:15 Creatine Kinase 109 U/L (26-192) 03/19/19 15:40 Troponin I 1.94 ng/ml (0.00-0.05) H* 03/19/19 23:15 C-Reactive Protein 43.2 MG/DL (0.00-0.3) H 03/11/19 05:10 Total Protein 4.8 g/dl (6.4-8.2) L 04/04/19 05:15 Albumin 1.5 g/dl (3.4-5.0) L 04/04/19 05:15 Prealbumin 7.0 mg/dl (20-40) L 03/19/19 05:00 Lipase 58 U/L (73-393) L 03/09/19 17:55 Beta-Hydroxybutyrate 0.9 mg/dL (0.2-2.8) 03/22/19 05:10 Microbiology 04/02/19 19:20 Blood Culture - Preliminary Blood - Peripheral Venous NO GROWTH OBTAINED AFTER 72 HOURS, INCUBATION TO CONTINUE FOR 2 DAYS. 04/02/19 19:30 Blood Culture - Preliminary Blood - Peripheral Venous NO GROWTH OBTAINED AFTER 72 HOURS, INCUBATION TO CONTINUE FOR 2 DAYS. 04/02/19 18:20 Gram Stain - Final Sputum - Endotrachea Suction/Ventilator Sputum Culture - Final Klebsiella Pneumoniae - Esbl 04/03/19 05:00 Urine Culture - Final Urine - Urine Lott NO GROWTH OBTAINED Problem List - Problems (1) Postoperative dehiscence of internal wound Code(s): T81.32XA - DISRUPTION OF INTERNAL OPERATION (SURGICAL) WOUND, NEC, INIT Qualifiers: Encounter type: subsequent encounter Qualified Code(s): T81.32XD - Disruption of internal operation (surgical) wound, not elsewhere classified, subsequent encounter (2) Open wound anterior abdominal wall Code(s): S31.109A - UNSP OPN WND ABD WALL, UNSP Q W/O PENET PERIT CAV, INIT Qualifiers: Encounter type: subsequent encounter Qualified Code(s): S31.109D - Unspecified open wound of abdominal wall, unspecified quadrant without penetration into peritoneal cavity, subsequent encounter (3) C. difficile diarrhea Code(s): A04.72 - ENTEROCOLITIS D/T CLOSTRIDIUM DIFFICILE, NOT SPCF RECUR (4) Crohn's disease Code(s): K50.90 - CROHN'S DISEASE, UNSPECIFIED, WITHOUT COMPLICATIONS Qualifiers: Gastrointestinal tract location: small intestine Digestive disease complication type: with rectal bleeding Qualified Code(s): K50.011 - Crohn's disease of small intestine with rectal bleeding (5) ESBL (extended spectrum beta-lactamase) producing bacteria infection Code(s): A49.9 - BACTERIAL INFECTION, UNSPECIFIED; Z16.12 - EXTENDED SPECTRUM BETA LACTAMASE (ESBL) RESISTANCE (6) Acute respiratory failure Code(s): J96.00 - ACUTE RESPIRATORY FAILURE, UNSP W HYPOXIA OR HYPERCAPNIA Qualifiers: Respiratory failure complication: unspecified whether with hypoxia or hypercapnia Qualified Code(s): J96.00 - Acute respiratory failure, unspecified whether with hypoxia or hypercapnia (7) Diabetic gastroparesis associated with type 1 diabetes mellitus Code(s): E10.43 - TYPE 1 DIABETES W DIABETIC AUTONOMIC (POLY)NEUROPATHY; K31.84 - GASTROPARESIS Assessment/Plan POD24 s/p small bowel resection for Crohn's perforation intubated, sedated in ICU, failed extubation pneumonia growing Klebsiella in sputum cx pending tracheostomy tomorrow by thoracic C. diff diarrhea on oral vancomycin via NGT tolerating tube feeds via Dobhoff NGT midline surgical wound initially left to heal in two places by secondary intention fascial dehiscence noted at both sites, initially at inferior aspects of both wounds wounds granulating with VAC therapy, white and black foam VAC changed as noted with skin prep, white and black foam continue changes q3 days ensure ALL surrounding skin edges protected by drape - NO black foam on intact skin once wound bases are fully granulated, may d/c white foam and continue with black until healed up to skin level medical management per primary team and ICU This patient is critically ill. Time spent reviewing chart, examining patient, changing dressing, talking with providers and/or family and documentation is 45 minutes.
[2019-04-06] MEDS: VANCOMYCIN 250 MG/5 ML ORAL SOLUTION PO SCH ×5 (01:14→23:37)
[2019-04-06] MEDS ORDERED: DEXTROSE 5%-WATER 100 ML IVPB ONE ×3 (01:29→18:30)
[2019-04-06] MEDS ORDERED: MEROPENEM 500 MG VIAL (RESTRICTED TO ID) IVPB ONE ×3 (01:29→18:30)
[2019-04-06] MEDS: MEROPENEM 500 MG in DEXTROSE 5%-WATER 100 ML IVPB SCH ×3 (01:30→18:32)
[2019-04-06] MEDS: INSULIN SLIDING SCALE (NOVOLOG) 1 VIAL SQ SCH ×7 (01:33→21:14)
[2019-04-06] MEDS ORDERED: MEROPENEM 500 MG in DEXTROSE 5%-WATER 100 ML IVPB SCH (02:00)
[2019-04-06] MEDS: DEXTROSE 5%-LACTATED RINGERS 1,000 ML IV SCH ×2 (06:19→11:42)
[2019-04-06 07:34] LABS: BASO % 0.8 % (0-2.0); EOS % 2.4 % (0-4.5); HEMATOCRIT 23.6 % (32.4-45.2); HEMOGLOBIN 7.7 GM/dL (10.7-15.3); LYMPH % 12.7 % (8-40); MCH 28.5 pg (25.7-33.7); MCHC 32.6 g/dl (32.0-36.0); MEAN CELL VOLUME 87.3 fl (80-96); MONO % 6.2 % (3.8-10.2); NEUT % 77.9 % (42.8-82.8); PLATELET COUNT 510 K/MM3 (134-434); RDW 23.7 % (11.6-15.6); WHITE BLOOD COUNT 11.5 K/mm3 (4.0-10.0)
[2019-04-06] MEDS ORDERED: PROPOFOL 40 ML ONE (07:39)
[2019-04-06 07:49] LABS: BLOOD UREA NITROGEN 17.4 mg/dL (7-18); CREATININE 0.4 mg/dL (0.55-1.3)
[2019-04-06 07:50] LABS: ALBUMIN 1.5 g/dl (3.4-5.0); BILIRUBIN,TOTAL 0.2 mg/dL (0.2-1); POTASSIUM 4.3 mmol/L (3.5-5.1)
--- NOTE | 2019-04-06 08:36 | PN ---
Progress Note, Physician Chief Complaint: s/p tracheostomy. Tracking voices, following simple commands History of Present Illness: Patient is a 48 year old female admitted for septic shock 2/ to bowel perforation. she is s/p exp lap with resection of ilial perforation on 03/12. In the past she has had multiple admission for DKA. This hospitalization complicated with multiple episodes of respiratory failure, bacteremia, c-diff and DKA. she also had an episode of pulseless activity on 03/19/19 and was intubated after CPR performed. - Current Medication List Current Medications: Active Medications Amino Acids (Prosource No Carb Liquid Pkt) 30 ml PO DAILY [facility] Last Admin: 04/05/19 09:46 Dose: 30 ml Chlorhexidine Gluconate (Peridex -) 15 ml MM BID [facility] Last Admin: 04/05/19 21:11 Dose: 15 ml Dextrose (Glucose Tablet -) 4 gm PO PRN PRN PRN Reason: HYPOGLYCEMIA Enoxaparin Sodium (Lovenox -) 80 mg SQ DAILY [facility] Last Admin: 04/05/19 09:46 Dose: 80 mg Fentanyl 500 mcg/ Dextrose 100 mls @ 10 mls/hr IVPB TITR [facility] Last Admin: 04/05/19 22:57 Dose: 50 mcg/hr, 10 mls/hr Propofol (Diprivan -) 1,000,000 mcg in 100 mls @ 1.287 mls/hr IVPB TITR [facility]; Protocol Last Admin: 04/05/19 12:45 Dose: Not Given Midazolam HCl (Midazolam 100mg/100ml-0.9%Nacl) 100 mg in 100 mls @ 1 mls/hr IVPB TITR [facility]; Protocol Last Admin: 04/05/19 22:58 Dose: 10 mg/hr, 10 mls/hr Meropenem 500 mg/ Dextrose 100 mls @ 200 mls/hr IVPB Q8H-IV [facility] Last Admin: 04/06/19 01:30 Dose: 200 mls/hr Dextrose/Lactated Ringer's (D5-Lr -) 1,000 mls @ 75 mls/hr IV ASDIR [facility] Last Admin: 04/06/19 06:19 Dose: 75 mls/hr Insulin Human Regular 100 (units/ Sodium Chloride) 100 mls @ 5.38 mls/hr IVPB TITR [facility]; Protocol Last Titration: 04/05/19 19:00 Dose: 0 units/kg/hr, 0 mls/hr Insulin Aspart (Novolog Vial Sliding Scale -) 1 vial SQ Q4H [facility]; Protocol Last Admin: 04/06/19 06:19 Dose: 4 units Ondansetron HCl (Zofran Injection) 4 mg IVPUSH Q6H PRN PRN Reason: NAUSEA AND/OR VOMITING Last Admin: 03/14/19 05:07 Dose: 4 mg Pantoprazole Sodium (Protonix Iv) 40 mg IVPUSH BID [facility] Last Admin: 04/05/19 21:11 Dose: 40 mg Vancomycin HCl (Vancomycin Oral Solution) 125 mg PO Q6HPO [facility] Last Admin: 04/06/19 06:19 Dose: Not Given - Objective Vital Signs: Vital Signs Temperature 97.8 F 04/06/19 06:00 Pulse Rate 96 H 04/06/19 06:00 Respiratory Rate 24 H 04/06/19 06:00 Blood Pressure 99/63 04/06/19 06:00 O2 Sat by Pulse Oximetry (%) 100 04/05/19 19:56 Additional Findings/Remarks: Constitutional: Yes: Other (sedated and intubated) Eyes: Yes: WNL, Conjunctiva Clear HENT: Yes: WNL, Atraumatic, Normocephalic Neck: Yes: WNL, Supple,trach noted to MV Cardiovascular: Yes: Regular Rate and Rhythm, Tachycardia Respiratory: Yes: trach to MV Gastrointestinal: Yes: Normal Bowel Sounds, Soft,VAC dressings in place. NGT to left nares ...Rectal Exam: Yes: rectal tube with liquid stool Genitourinary: Yes: Lott Present Breast(s): Yes: WNL Musculoskeletal: Yes: Muscle Weakness Edema: Yes Edema: LUE: 2+, RUE: 2+, LLE: 2+, RLE: 2+ Peripheral Pulses WNL: Yes Peripheral Pulses: Left Radial: 1+, Right Radial: 1+, Left Doralis Pedis: 1+, Right Dorsalis Pedis: 1+, Left Femoral: 1+, Right Femoral: 1+ Integumentary: Yes: Bruising Wound/Incision: Yes: Unapproximated (dihescense at distal portion of abd incision) Vac in place Neurological: Yes: Other off sedation. following simple commands Labs: CBC, BMP 04/06/19 06:15 10/08/19 06:15 INR, PTT INR 0.95 (0.83-1.09) 03/26/19 06:00 Fibrinogen 359.0 mg/dL (238-498) 03/19/19 23:15 Problem List - Problems (1) HLD (hyperlipidemia) Assessment/Plan: NPO Code(s): E78.5 - HYPERLIPIDEMIA, UNSPECIFIED (2) Left-sided weakness Assessment/Plan: PT when no longer requiring ICU monitoring Code(s): R53.1 - WEAKNESS (3) History of open heart surgery Code(s): Z98.890 - OTHER SPECIFIED POSTPROCEDURAL STATES (4) Acute Crohn's disease Assessment/Plan: history of chrons followed at [facility], was suppose to start infliximab but never followed through off steroids Code(s): K50.90 - CROHN'S DISEASE, UNSPECIFIED, WITHOUT COMPLICATIONS (5) Gastroparesis Code(s): K31.84 - GASTROPARESIS (6) Abdominal pain Assessment/Plan: s/p bowel resection with viscous repair general surgery following wound dihensence noted at distal portion, vac in place dressing changes as per surgery Code(s): R10.9 - UNSPECIFIED ABDOMINAL PAIN Qualifiers: Abdominal location: generalized Qualified Code(s): R10.84 - Generalized abdominal pain (7) Small bowel obstruction Assessment/Plan: s/p perforated viscus repair dressing changes as per surgical team Code(s): K56.609 - UNSP INTESTNL OBST, UNSP TO PARTIAL VERSUS COMPLETE OBST (8) Cerebrovascular accident (CVA) Assessment/Plan: left sided weakness PT to follow when no longer requiring ICU care Code(s): I63.9 - CEREBRAL INFARCTION, UNSPECIFIED Qualifiers: CVA mechanism: unspecified Qualified Code(s): I63.9 - Cerebral infarction, unspecified (9) Chronic pain Assessment/Plan: off all sedation dilaudid prn pain Code(s): G89.29 - OTHER CHRONIC PAIN Qualifiers: Chronic pain type: chronic pain syndrome Qualified Code(s): G89.4 - Chronic pain syndrome (10) Prophylactic measure Assessment/Plan: FEN Jevity monitor electrolytes IVF DVT lovenox sq Dispo requires ICU care full code palliative care following prognosis critical discharge planning-request placed for [facility] Code(s): Z29.9 - ENCOUNTER FOR PROPHYLACTIC MEASURES, UNSPECIFIED (11) Diabetes Assessment/Plan: insulin d/cd, now on long short acting insulin q4 c/w d5 @ 75cc/hr with close monitoring of BGMs. careful glycemic control with multiple episodes of DKA levemir on hold Code(s): E11.9 - TYPE 2 DIABETES MELLITUS WITHOUT COMPLICATIONS (12) Perforated abdominal viscus Assessment/Plan: s/p Ex-lap/RAYSHAWN/partial SB and omental resection with anastomosis/washou appreciate surgical and ID consultation c/w abx wound vac changes by dr aceves Code(s): [id number] - (13) Hypoxia Assessment/Plan: Acute respiratory failure s/p tracheostomy wean to PS as tolerated trach care Code(s): R09.02 - HYPOXEMIA (14) C. difficile diarrhea Assessment/Plan: -Continue vancomycin PO Dr Mark following continue PO vanco until 1 week after antibiotics have been completed. Given that this is a recurrent C. Diff, would likely need tapering to completion once antibiotics have stopped Vanco: 125mg Q6H for 1 week 125mg Q8H for 1 week 125mg BID for 1 week 125mg daily for 1 week 125mg every other day for 1 week then stop -c/w rectal tube Code(s): A04.72 - ENTEROCOLITIS D/T CLOSTRIDIUM DIFFICILE, NOT SPCF RECUR (15) ESBL (extended spectrum beta-lactamase) producing bacteria infection Assessment/Plan: ESBL in wound appreciate ID consultation -Dr. Pimentel c/w linezolid, vanco, sylvester - Cx + LF neg bacilli - UCx + VRE - CDiff Ag and toxin pos - WBC down to 8.5 Code(s): A49.9 - BACTERIAL INFECTION, UNSPECIFIED; Z16.12 - EXTENDED SPECTRUM BETA LACTAMASE (ESBL) RESISTANCE (16) Clostridium difficile diarrhea Code(s): A04.72 - ENTEROCOLITIS D/T CLOSTRIDIUM DIFFICILE, NOT SPCF RECUR (17) Admitted to intensive care unit Assessment/Plan: appreciate ICU level of care Code(s): Z78.9 - OTHER SPECIFIED HEALTH STATUS Visit type - Emergency Visit Emergency Visit: Yes ED Registration Date: 03/09/19 Care time: The patient presented to the Emergency Department on the above date and was hospitalized for further evaluation of their emergent condition. - New Patient This patient is new to me today: No - Critical Care Critical Care patient: No - Discharge Referral Referred to [facility] Med P.C.: No
[2019-04-06] MEDS ORDERED: MIDAZOLAM HCL 2 MG/2 ML SINGLE DOSE VIAL ONE (08:40)
[2019-04-06] MEDS ORDERED: LIDOCAINE HCL 1%, 10 MG/ML (20ML VIAL) ONE (09:22)
[2019-04-06] MEDS ORDERED: LIDOCAINE HCL 1%, 10 MG/ML (20ML VIAL) NR ONE (09:45)
--- NOTE | 2019-04-06 10:35 | PN ---
Physical Exam: SUBJECTIVE: Patient seen and examined at bedside. pt is sedated. OBJECTIVE: Vital Signs Period Temp Pulse Resp BP Sys/Rapp Pulse Ox Last 24 Hr 97.8 F-99.8 F 89-115 20-31 90-120/57-67 99-100 GENERAL: The patient is awake, alert, and fully oriented, in no acute distress. HEAD: Normal with no signs of trauma. EYES: PERRL ENT:oropharynx clear without exudates, moist mucous membranes. LUNGS: Breath sounds b/l R>L, no wheezes, no crackles, no accessory muscle use. HEART: Regular rate and rhythm, S1, S2 without murmur, rub or gallop. ABDOMEN: Soft, nontender, nondistended, normoactive bowel sounds, no guarding EXTREMITIES: 2+ pulses, warm, well-perfused, no edema. SKIN: Warm, dry, normal turgor, no rashes or lesions noted Laboratory Results - last 24 hr 04/06/19 04/06/19 04/06/19 06:15 06:15 08:49 WBC 11.5 H RBC 2.70 L Hgb 7.7 L Hct 23.6 L MCV 87.3 MCH 28.5 MCHC 32.6 RDW 23.7 H Plt Count 510 H MPV 8.0 Absolute Neuts (auto) 9.0 H Neutrophils % 77.9 Lymphocytes % 12.7 D Monocytes % 6.2 Eosinophils % 2.4 Basophils % 0.8 Nucleated RBC % 0 Sodium 139 Potassium 4.3 Chloride 103 Carbon Dioxide 32 Anion Gap 4 L BUN 17.4 Creatinine 0.4 L Est GFR (CKD-EPI)AfAm 141.75 Est GFR (CKD-EPI)NonAf 122.30 POC Glucometer 209 Random Glucose 313 H Calcium 8.0 L Phosphorus 3.0 Magnesium 2.0 Total Bilirubin 0.2 AST 13 L ALT 9 L Alkaline Phosphatase 149 H Total Protein 5.0 L Albumin 1.5 L Current Medications Amino Acids (Prosource No Carb Liquid Pkt) 30 ml PO DAILY [facility] Last Admin: 04/05/19 09:46 Dose: 30 ml Chlorhexidine Gluconate (Peridex -) 15 ml MM BID [facility] Last Admin: 04/05/19 21:11 Dose: 15 ml Dextrose (Glucose Tablet -) 4 gm PO PRN PRN PRN Reason: HYPOGLYCEMIA Enoxaparin Sodium (Lovenox -) 80 mg SQ DAILY [facility] Last Admin: 04/05/19 09:46 Dose: 80 mg Fentanyl 500 mcg/ Dextrose 100 mls @ 10 mls/hr IVPB TITR [facility] Last Admin: 04/05/19 22:57 Dose: 50 mcg/hr, 10 mls/hr Propofol (Diprivan -) 1,000,000 mcg in 100 mls @ 1.287 mls/hr IVPB TITR [facility]; Protocol Last Admin: 04/05/19 12:45 Dose: Not Given Midazolam HCl (Midazolam 100mg/100ml-0.9%Nacl) 100 mg in 100 mls @ 1 mls/hr IVPB TITR [facility]; Protocol Last Admin: 04/05/19 22:58 Dose: 10 mg/hr, 10 mls/hr Meropenem 500 mg/ Dextrose 100 mls @ 200 mls/hr IVPB Q8H-IV [facility] Last Admin: 04/06/19 01:30 Dose: 200 mls/hr Dextrose/Lactated Ringer's (D5-Lr -) 1,000 mls @ 75 mls/hr IV ASDIR [facility] Last Admin: 04/06/19 06:19 Dose: 75 mls/hr Insulin Human Regular 100 (units/ Sodium Chloride) 100 mls @ 5.38 mls/hr IVPB TITR [facility]; Protocol Last Titration: 04/05/19 19:00 Dose: 0 units/kg/hr, 0 mls/hr Insulin Aspart (Novolog Vial Sliding Scale -) 1 vial SQ Q4H [facility]; Protocol Last Admin: 04/06/19 08:55 Dose: 4 units Ondansetron HCl (Zofran Injection) 4 mg IVPUSH Q6H PRN PRN Reason: NAUSEA AND/OR VOMITING Last Admin: 03/14/19 05:07 Dose: 4 mg Pantoprazole Sodium (Protonix Iv) 40 mg IVPUSH BID [facility] Last Admin: 04/05/19 21:11 Dose: 40 mg Vancomycin HCl (Vancomycin Oral Solution) 125 mg PO Q6HPO [facility] Last Admin: 04/06/19 06:19 Dose: Not Given ASSESSMENT/PLAN: This is a 48F PMH IDDM, PE on xarelto, frequent DKA, HTN, HLD, CVA w/ left sided weakness, recent hospitalization at [facility] September 2018 admitted to ICU for SBO. Developed pneumoperitoneum s/p ex-lap. pt was extubated and required reintubation 2/2 respiratory failure Neuro : -sedated -will turn off sedation to eval mental status - Tylenol for pain/fever ctrl - dilaudid 1 mg q4h PRN for pain control Cardio : hx of transient a-fib with RVR -tachycardic - No longer hypotensive - Maintain MAP >65. currently not on pressors - central line in place ([facility] 04/01) . will try for peripheral access Respiratory: Acute respiratory failure -s/p trach and bronchoscopy. propofol and rocuronium were used during procedure. lovenox held for procedure, pt was NPO . GI : Crohn's flair likely, pneumoperitoneum s/p ex-lap - GI recs appreciated continuing w/ C diff management -CT abdomen and pelvis with contrast via NG tube and IV contrast negative for a fluid collection/other cause of infection. - tube feeds pivot to 50cc/hr, 30cc/hr free water. ID: C diff, + sputum cx - c/w vanco day 10 and merrem - CT abd pelvis negative for abscess -afebrile for 24 hrs -sputum cx: gram neg lactose fermenting bacteria Endocrine: DKA -insulin drip for better glycemic control -c/w D5NS F/E/N - Lytes in AM, replete PRN - Monitor I/Os - Monitor UrO, Cr PPx: SCDs , restart lovenox Dispo: continue ICU monitoring. pt accepted to LTAC Visit type - Emergency Visit Emergency Visit: No - New Patient This patient is new to me today: No - Critical Care Critical Care patient: Yes Total Critical Care Time (in minutes): 37 Critical Care Statement: The care of this patient involved high complexity decision making to prevent further life threatening deterioration of the patient 's condition and/or to evaluate & treat vital organ system(s) failure or risk of failure. ATTENDING PHYSICIAN STATEMENT I saw and evaluated the patient. I reviewed the resident's note and discussed the case with the resident. I agree with the resident's findings and plan as documented. SUBJECTIVE: OBJECTIVE: ASSESSMENT AND PLAN:
--- NOTE | 2019-04-06 10:45 | PN ---
Teaching Attending Note Name of Resident: Harriett Hale ATTENDING PHYSICIAN STATEMENT I saw and evaluated the patient. I reviewed the resident's note and discussed the case with the resident. I agree with the resident's findings and plan as documented. SUBJECTIVE: Patient seen and examined in the ICU. Remains intubated and sedated. AC Mode of vent, 40% FiO2. No pressors. Intake & Output 04/03/19 04/04/19 04/05/19 04/06/19 23:59 23:59 23:59 23:59 Intake Total 3699 2375 3337.1 1140 Output Total 1900 2810 2000 305 Balance 1799 -435 1337.1 835 Weight 98 lb 118 lb 9.739 oz 118 lb 9.739 oz 104 lb 1.6 oz Last Vital Signs Temp Pulse Resp BP Pulse Ox 97.8 F 96 H 26 H 93/58 L 100 04/06/19 06:00 04/06/19 08:00 04/06/19 08:25 04/06/19 08:00 04/05/19 19:56 Active Medications Amino Acids (Prosource No Carb Liquid Pkt) 30 ml PO DAILY [facility] Last Admin: 04/05/19 09:46 Dose: 30 ml Chlorhexidine Gluconate (Peridex -) 15 ml MM BID [facility] Last Admin: 04/05/19 21:11 Dose: 15 ml Dextrose (Glucose Tablet -) 4 gm PO PRN PRN PRN Reason: HYPOGLYCEMIA Enoxaparin Sodium (Lovenox -) 80 mg SQ DAILY [facility] Last Admin: 04/05/19 09:46 Dose: 80 mg Fentanyl 500 mcg/ Dextrose 100 mls @ 10 mls/hr IVPB TITR [facility] Last Admin: 04/05/19 22:57 Dose: 50 mcg/hr, 10 mls/hr Propofol (Diprivan -) 1,000,000 mcg in 100 mls @ 1.287 mls/hr IVPB TITR [facility]; Protocol Last Admin: 04/05/19 12:45 Dose: Not Given Midazolam HCl (Midazolam 100mg/100ml-0.9%Nacl) 100 mg in 100 mls @ 1 mls/hr IVPB TITR [facility]; Protocol Last Admin: 04/05/19 22:58 Dose: 10 mg/hr, 10 mls/hr Meropenem 500 mg/ Dextrose 100 mls @ 200 mls/hr IVPB Q8H-IV [facility] Last Admin: 04/06/19 01:30 Dose: 200 mls/hr Dextrose/Lactated Ringer's (D5-Lr -) 1,000 mls @ 75 mls/hr IV ASDIR [facility] Last Admin: 04/06/19 06:19 Dose: 75 mls/hr Insulin Human Regular 100 (units/ Sodium Chloride) 100 mls @ 5.38 mls/hr IVPB TITR [facility]; Protocol Last Titration: 04/05/19 19:00 Dose: 0 units/kg/hr, 0 mls/hr Insulin Aspart (Novolog Vial Sliding Scale -) 1 vial SQ Q4H [facility]; Protocol Last Admin: 04/06/19 08:55 Dose: 4 units Ondansetron HCl (Zofran Injection) 4 mg IVPUSH Q6H PRN PRN Reason: NAUSEA AND/OR VOMITING Last Admin: 03/14/19 05:07 Dose: 4 mg Pantoprazole Sodium (Protonix Iv) 40 mg IVPUSH BID [facility] Last Admin: 04/05/19 21:11 Dose: 40 mg Vancomycin HCl (Vancomycin Oral Solution) 125 mg PO Q6HPO [facility] Last Admin: 04/06/19 06:19 Dose: Not Given Exam: General intubated on vent minimally responsive due to sedation HEENT: PERRL, no JVD, anicteric sclera CV: RRR Pulm: Vented, coarse bilateral breath sounds Abd: SNTND, wound vac in place c/d/i +BS Ext: UE +3 edema, LE +1 edmea Neuro: Sedated Laboratory Results - last 24 hr 04/05/19 04/05/19 04/05/19 11:06 12:29 13:35 WBC RBC Hgb Hct MCV MCH MCHC RDW Plt Count MPV Absolute Neuts (auto) Neutrophils % Lymphocytes % Monocytes % Eosinophils % Basophils % Nucleated RBC % Sodium Potassium Chloride Carbon Dioxide Anion Gap BUN Creatinine Est GFR (CKD-EPI)AfAm Est GFR (CKD-EPI)NonAf POC Glucometer 544 346 251 Random Glucose Calcium Phosphorus Magnesium Total Bilirubin AST ALT Alkaline Phosphatase Total Protein Albumin 04/05/19 04/05/19 04/05/19 14:44 15:52 17:06 WBC RBC Hgb Hct MCV MCH MCHC RDW Plt Count MPV Absolute Neuts (auto) Neutrophils % Lymphocytes % Monocytes % Eosinophils % Basophils % Nucleated RBC % Sodium Potassium Chloride Carbon Dioxide Anion Gap BUN Creatinine Est GFR (CKD-EPI)AfAm Est GFR (CKD-EPI)NonAf POC Glucometer 180 111 260 Random Glucose Calcium Phosphorus Magnesium Total Bilirubin AST ALT Alkaline Phosphatase Total Protein Albumin 04/05/19 04/06/19 04/06/19 21:18 01:20 06:05 WBC RBC Hgb Hct MCV MCH MCHC RDW Plt Count MPV Absolute Neuts (auto) Neutrophils % Lymphocytes % Monocytes % Eosinophils % Basophils % Nucleated RBC % Sodium Potassium Chloride Carbon Dioxide Anion Gap BUN Creatinine Est GFR (CKD-EPI)AfAm Est GFR (CKD-EPI)NonAf POC Glucometer 343 217 249 Random Glucose Calcium Phosphorus Magnesium Total Bilirubin AST ALT Alkaline Phosphatase Total Protein Albumin 04/06/19 04/06/19 04/06/19 06:15 06:15 08:49 WBC 11.5 H RBC 2.70 L Hgb 7.7 L Hct 23.6 L MCV 87.3 MCH 28.5 MCHC 32.6 RDW 23.7 H Plt Count 510 H MPV 8.0 Absolute Neuts (auto) 9.0 H Neutrophils % 77.9 Lymphocytes % 12.7 D Monocytes % 6.2 Eosinophils % 2.4 Basophils % 0.8 Nucleated RBC % 0 Sodium 139 Potassium 4.3 Chloride 103 Carbon Dioxide 32 Anion Gap 4 L BUN 17.4 Creatinine 0.4 L Est GFR (CKD-EPI)AfAm 141.75 Est GFR (CKD-EPI)NonAf 122.30 POC Glucometer 209 Random Glucose 313 H Calcium 8.0 L Phosphorus 3.0 Magnesium 2.0 Total Bilirubin 0.2 AST 13 L ALT 9 L Alkaline Phosphatase 149 H Total Protein 5.0 L Albumin 1.5 L ASSESSMENT AND PLAN: s/p Cardiopulmonary Arrest r/o Anoxic Brain Injury Acute Hypoxic Respiratory Failure Perforated Small Bowel s/p ex-lap/RAYSHAWN/segmental SB resection Crohn's Disease Peritonitis +C diff Colitis Septic Shock Lactic Acidosis Volume Overload h/o PE HTN DM Hyperlipidemia Anemia Thrombocytopenia h/o CVA - S/P Tracheostomy - Wean sedation - Antibiotics per ID: meropenem - Daily assessment for Lasix - monitor urine output, creatinine - replete lytes - off pressors, maintain MAP > 65 - continue anticoagulation - DVT/GI prophylaxis - Cont enteral feeds - Requires continued ICU monitoring Dr Otero Critical care time spent in reviewing chart, evaluating patient and formulating plan - 36 minutes.
--- NOTE | 2019-04-06 10:50 | PROC ---
Procedure Note Procedure: Bronchoscopy Note Under informed consent a FOB was performed prior to the placement of a Percutaneous Tracheostomy. The bronchoscope was inserted via the ETT. Clear/white secretions were aspirated. The bronchoscope was advanced to the garfield, which appeared sharp. The airways were subsequently inspected. Thin clear/white secretions noted and aspirated. The Bronchoscope was withdrawn back into the ETT and remained there during the placement of a Percutaneous Tracheostomy by CTS. No complications noted. No active bleeding was noted post procedure. The bronchoscope was withdrawn from the patient without incident. Dr Otero
[2019-04-06] MEDS: PANTOPRAZOLE SODIUM 40 MG VIAL IVPUSH SCH ×2 (11:41→21:15)
[2019-04-06] MEDS: AMINO ACIDS/PROTEIN HYDROLYS 30 ML LIQUID.PKT PO SCH (11:41)
[2019-04-06] MEDS: CHLORHEXIDINE GLUCONATE 0.12% 15ML CUP MM SCH ×2 (11:41→21:15)
--- NOTE | 2019-04-06 11:55 | OPR ---
Patient Name: Ni Rosas MR#: [id number] Procedure Date: 04/06/2019 Preoperative Diagnosis: Respiratory failure; small bowel obstruction; HTN; CVA; DM; Diabetic ketoacidosis;CDIF colitis. Postoperative Diagnosis: same. Procedure: 1. Percutaneous tracheostomy with #8 Shiley; 2. Bronchoscopy (performed by Dr. Otero). Indication: Respiratory failure; Surgeon(s): Saravanan Ignacio MD Cosurgeon: wendy Stock Speculator Surgeon: Kal Otero MD. Anesthesia: General endotracheal; Findings: Minimal secretions. Specimens Sent: 1. na; Complications: none Drains / Tubes / Catheters: na Hardware / Implants: #8 Shiley Blood / Fluid Losses: minimal Post-Operative Condition: Stable. Indications: This patient is 48 year-old female s/p recent arrest complicated by anoxic brain injury referred for tracheostomy by the ICU team. An informed consent was obtained. All questions were addressed and his family agreed. Details of Procedure: The procedure was done at the bedside. We began with bronchoscopy to clear the airway for the procedure. This was done by Dr. Otero. After this, the neck was prepared and draped in standard fashion. We then made a transverse incision below the cricoid cartilage. We withdrew the endotracheal airway until we were close to the vocal cords. With the incision in place, we inserted the needle from the percutaneous bronchoscopy kit under direct bronchoscopic vision identifying approximately the 3rd to 4th ring. We then passed a wire under vision. We then dilated up and inserted the tracheostomy (#8 Shiley). We put the cuff up and connected the ventilator. We placed the bronchoscope through the tracheostomy and then above. There was minimal blood from the subcutaneous tissue that went into the airway. This was removed. There was no active bleeding and the placement was good. I will follow the patient as an inpatient as needed.
[2019-04-06] MEDS: PROPOFOL 1,000,000 MCG/100 ML VIAL IVPB SCH (12:53)
[2019-04-06] MEDS: FENTANYL INJECTION 500 MCG in DEXTROSE 5%-WATER - 90 ML IVPB SCH (12:53)
[2019-04-06 13:01] LABS: ANISOCYTOSIS 1+; MACROCYTOSIS 1+; PLATELET ESTIMATE INCREASED
--- NOTE | 2019-04-06 13:15 | PN ---
Progress Note (short form) - Note Progress Note: S/P tracheostomy Intubated Off sedation now Vital Signs Period Temp Pulse Resp BP Sys/Rapp Pulse Ox Last 24 Hr 97.3 F-99.8 F 89-115 20-30 90-126/57-76 100-100 PE: Intubated, s/P tracheostomy, lethargic Neck: supple Lungs: CTA CVS: s1S2 Abd: Benign Neuro: intubated CMP Sodium 139 mmol/L (136-145) 04/06/19 06:15 Potassium 4.3 mmol/L (3.5-5.1) 04/06/19 06:15 Chloride 103 mmol/L (98-107) 04/06/19 06:15 Carbon Dioxide 32 mmol/L (21-32) 04/06/19 06:15 Anion Gap 4 MMOL/L (8-16) L 04/06/19 06:15 BUN 17.4 mg/dL (7-18) 04/06/19 06:15 Creatinine 0.4 mg/dL (0.55-1.3) L 04/06/19 06:15 Est GFR (CKD-EPI)AfAm 141.75 04/06/19 06:15 Est GFR (CKD-EPI)NonAf 122.30 04/06/19 06:15 POC Glucometer 206 UNITS (80-120) 04/06/19 13:03 Random Glucose 313 mg/dL (74-106) H 04/06/19 06:15 Hemoglobin A1c % 9.8 % (4.2-6.3) H 03/10/19 07:20 Lactic Acid 1.8 mmol/L (0.4-2.0) 04/02/19 01:00 Calcium 8.0 mg/dL (8.5-10.1) L 04/06/19 06:15 Phosphorus 3.0 mg/dL (2.5-4.9) 04/06/19 06:15 Magnesium 2.0 mg/dL (1.8-2.4) 04/06/19 06:15 Iron 125 ug/dL (50-175) 03/20/19 17:00 TIBC 124 ug/dL (250-450) L 03/20/19 17:00 Iron Saturation 100 % (17.5-39) H 03/20/19 17:00 Unsaturated IBC -1 ug/dL (200-275) L 03/20/19 17:00 Ferritin 220.2 ng/ml (8-388) 03/20/19 17:00 Total Bilirubin 0.2 mg/dL (0.2-1) 04/06/19 06:15 AST 13 U/L (15-37) L 04/06/19 06:15 ALT 9 U/L (13-61) L 04/06/19 06:15 Alkaline Phosphatase 149 U/L (45-117) H 04/06/19 06:15 Creatine Kinase 109 U/L (26-192) 03/19/19 15:40 Troponin I 1.94 ng/ml (0.00-0.05) H* 03/19/19 23:15 C-Reactive Protein 43.2 MG/DL (0.00-0.3) H 03/11/19 05:10 Total Protein 5.0 g/dl (6.4-8.2) L 04/06/19 06:15 Albumin 1.5 g/dl (3.4-5.0) L 04/06/19 06:15 Prealbumin 7.0 mg/dl (20-40) L 03/19/19 05:00 Lipase 58 U/L (73-393) L 03/09/19 17:55 Beta-Hydroxybutyrate 0.9 mg/dL (0.2-2.8) 03/22/19 05:10 Current Medications Generic Name Dose Route Start Last Admin Trade Name Freq PRN Reason Stop Dose Admin Amino Acids 30 ml 03/26/19 15:30 04/06/19 11:41 Prosource No Carb Liquid Pkt PO 30 ml DAILY [facility] Administration Chlorhexidine Gluconate 15 ml 03/29/19 10:00 04/06/19 11:41 Peridex - MM Not Given BID [facility] Dextrose 4 gm 03/28/19 23:06 Glucose Tablet - PO PRN PRN HYPOGLYCEMIA Enoxaparin Sodium 80 mg 04/01/19 11:15 04/05/19 09:46 Lovenox - SQ 80 mg DAILY [facility] Administration Fentanyl 500 mcg/ Dextrose 100 mls @ 10 mls/hr 04/01/19 12:00 04/06/19 12:53 IVPB Not Given TITR [facility] 50 MCG/HR Propofol 1,000,000 mcg in 100 mls @ 1.287 mls/hr 04/01/19 12:00 04/06/19 12: 53 Diprivan - IVPB Not Given TITR [facility] Protocol 5 MCG/KG/MIN Midazolam HCl 100 mg in 100 mls @ 1 mls/hr 04/01/19 20:00 04/06/19 10:15 Midazolam 100mg/100ml-0.9%Nacl IVPB 0 mg/hr TITR [facility] 0 mls/hr Titration Protocol 1 MG/HR Meropenem 500 mg/ Dextrose 100 mls @ 200 mls/hr 04/06/19 02:00 04/06/19 11:00 IVPB 200 mls/hr Q8H-IV [facility] Administration Dextrose/Lactated Ringer's 1,000 mls @ 75 mls/hr 04/05/19 10:30 04/06/19 11: 42 D5-Lr - IV 75 mls/hr ASDIR [facility] Administration Insulin Human Regular 100 100 mls @ 5.38 mls/hr 04/05/19 10:30 04/05/19 19:00 units/ Sodium Chloride IVPB 0 units/kg/hr TITR [facility] 0 mls/hr Titration Protocol 0.1 UNITS/KG/HR Insulin Aspart 1 vial 04/05/19 17:15 04/06/19 08:55 Novolog Vial Sliding Scale - SQ 4 units Q4H [facility] Administration Protocol Ondansetron HCl 4 mg 03/11/19 20:31 03/14/19 05:07 Zofran Injection IVPUSH 4 mg Q6H PRN Administration NAUSEA AND/OR VOMITING Pantoprazole Sodium 40 mg 03/30/19 10:00 04/06/19 11:41 Protonix Iv IVPUSH 40 mg BID [facility] Administration Vancomycin HCl 125 mg 03/15/19 18:00 04/06/19 13:07 Vancomycin Oral Solution PO 125 mg Q6HPO [facility] Administration AP: T1DM with acidosis: Acidosis resolved S/P Tracheostomy s/p Cardiopulmonary Arrest R/o Anoxic Brain Injury Acute Hypoxic Respiratory Failure Perforated Small Bowel s/p ex-lap/RAYHSAWN/segmental SB resection Crohn's Disease Peritonitis +C diff Colitis Septic Shock/Lactic Acidosis h/o PE HTN h/o CVA Pt s/p Tracheostomy Iv hydration as necessary, on D5 ringer's lactate, continue same until tube feeding is started and tolerated Add D5NS whenever tube feeding is on hold for any reason Off Insulin drip BGM Q 4 hour Levemir 6 units stat and daily Novolog coverage Q 4 hrs Replace electrolytes as necessary
[2019-04-06] MEDS ORDERED: INSULIN (LEVEMIR) 100 UNITS/ML UNITS SQ ONE (13:16)
--- NOTE | 2019-04-06 13:17 | PN ---
Progress Note, Physician History of Present Illness: stable trach done family in room ng in place afebrile still lethargic - Current Medication List Current Medications: Active Medications Amino Acids (Prosource No Carb Liquid Pkt) 30 ml PO DAILY [facility] Last Admin: 04/06/19 11:41 Dose: 30 ml Chlorhexidine Gluconate (Peridex -) 15 ml MM BID [facility] Last Admin: 04/06/19 11:41 Dose: Not Given Dextrose (Glucose Tablet -) 4 gm PO PRN PRN PRN Reason: HYPOGLYCEMIA Enoxaparin Sodium (Lovenox -) 80 mg SQ DAILY [facility] Last Admin: 04/05/19 09:46 Dose: 80 mg Fentanyl 500 mcg/ Dextrose 100 mls @ 10 mls/hr IVPB TITR [facility] Last Admin: 04/06/19 12:53 Dose: Not Given Propofol (Diprivan -) 1,000,000 mcg in 100 mls @ 1.287 mls/hr IVPB TITR [facility]; Protocol Last Admin: 04/06/19 12:53 Dose: Not Given Midazolam HCl (Midazolam 100mg/100ml-0.9%Nacl) 100 mg in 100 mls @ 1 mls/hr IVPB TITR [facility]; Protocol Last Titration: 04/06/19 10:15 Dose: 0 mg/hr, 0 mls/hr Meropenem 500 mg/ Dextrose 100 mls @ 200 mls/hr IVPB Q8H-IV [facility] Last Admin: 04/06/19 11:00 Dose: 200 mls/hr Dextrose/Lactated Ringer's (D5-Lr -) 1,000 mls @ 75 mls/hr IV ASDIR [facility] Last Admin: 04/06/19 11:42 Dose: 75 mls/hr Insulin Human Regular 100 (units/ Sodium Chloride) 100 mls @ 5.38 mls/hr IVPB TITR [facility]; Protocol Last Titration: 04/05/19 19:00 Dose: 0 units/kg/hr, 0 mls/hr Insulin Aspart (Novolog Vial Sliding Scale -) 1 vial SQ Q4H [facility]; Protocol Last Admin: 04/06/19 08:55 Dose: 4 units Ondansetron HCl (Zofran Injection) 4 mg IVPUSH Q6H PRN PRN Reason: NAUSEA AND/OR VOMITING Last Admin: 03/14/19 05:07 Dose: 4 mg Pantoprazole Sodium (Protonix Iv) 40 mg IVPUSH BID [facility] Last Admin: 04/06/19 11:41 Dose: 40 mg Vancomycin HCl (Vancomycin Oral Solution) 125 mg PO Q6HPO [facility] Last Admin: 04/06/19 13:07 Dose: 125 mg - Objective Vital Signs: Vital Signs Temperature 97.9 F 04/06/19 12:00 Pulse Rate 100 H 04/06/19 12:00 Respiratory Rate 26 H 04/06/19 12:00 Blood Pressure 112/71 04/06/19 12:00 O2 Sat by Pulse Oximetry (%) 100 04/06/19 09:00 Constitutional: Yes: No Distress, Calm Respiratory: Yes: Mechanically Ventilated, Other (trachestomy) Gastrointestinal: Yes: Normal Bowel Sounds, Soft, Other (ng in place) Musculoskeletal: Yes: WNL Extremities: Yes: WNL Neurological: Yes: Lethargy, Other Labs: CBC, BMP 04/06/19 06:15 04/06/19 06:15 INR, PTT INR 0.95 (0.83-1.09) 03/26/19 06:00 Fibrinogen 359.0 mg/dL (238-498) 03/19/19 23:15 - ....Imaging Chest X-ray: Report Reviewed, Image Reviewed X-ray: Report Reviewed, Image Reviewed Assessment/Plan blem List - Problems (1) Diabetes Code(s): E11.9 - TYPE 2 DIABETES MELLITUS WITHOUT COMPLICATIONS (2) HLD (hyperlipidemia) Code(s): E78.5 - HYPERLIPIDEMIA, UNSPECIFIED (3) HTN (hypertension) Code(s): I10 - ESSENTIAL (PRIMARY) HYPERTENSION (4) Crohn's disease Code(s): K50.90 - CROHN'S DISEASE, UNSPECIFIED, WITHOUT COMPLICATIONS Qualifiers: Gastrointestinal tract location: small intestine Digestive disease complication type: with rectal bleeding Qualified Code(s): K50.011 - Crohn's disease of small intestine with rectal bleeding (5) Cerebrovascular accident (CVA) Code(s): I63.9 - CEREBRAL INFARCTION, UNSPECIFIED Qualifiers: CVA mechanism: unspecified Qualified Code(s): I63.9 - Cerebral infarction, unspecified (6) Diabetes mellitus, insulin dependent (IDDM), uncontrolled Code(s): E10.65 - TYPE 1 DIABETES MELLITUS WITH HYPERGLYCEMIA Assessment/Plan 48 y.o. female with PMH of uncontrolled IDDM and DKA, Crohn's disease on prednisone, CVA, PE, HTN, HLD presenting with abdominal pain Acute Respiratory failure on MV/sedation s/p cardiopulmonary arrest Sepsis Fever SB perforation s/p Ex-lap/RAYSHAWN/partial SB and omental resection with anastomosis/ washout Peritonitis : klebsiella/Enterococcus isolated C diff colitis Crohn's disease IDDM Hx of multiple DKA Hx of CVA Hx of PE HTN HLD plan continue vent support nutrition continue sylvester nutrition diuresis as needed if remians afebrile will stop abx cc 40 min
--- NOTE | 2019-04-06 14:01 | PN.GI ---
GI Progress Note Subjective: No acute events S/P Trach today Family present at bedside (mother, mother's kemar's sister). They believes that Ni received the first dose of remicade at [facility] during previous admission. They also believe that her C. Diff had been recurrent. - Objective Vital Signs: Vital Signs Temperature 97.9 F 04/06/19 12:00 Pulse Rate 100 H 04/06/19 12:00 Respiratory Rate 26 H 04/06/19 12:00 Blood Pressure 112/71 04/06/19 12:00 O2 Sat by Pulse Oximetry (%) 100 04/06/19 09:00 Constitutional: Calm Eyes: No: Sclera Icterus Cardiovascular: Yes: Tachycardia Respiratory: Yes: Diminished (at bases bilaterally) Gastrointestinal Inspection: Yes: Scars (midline abdominal incision with vac dressing extending into the epigastrium) ...Auscultate: Yes: Normoactive Bowel Sounds ...Palpate: No: Tenderness (No grimacing upon palpation) ...Percussion: No: Tympanitic Neurological: Yes: Other (Opening eyes) Labs: CBC, BMP 04/06/19 06:15 04/06/19 06:15 INR, PTT INR 0.95 (0.83-1.09) 03/26/19 06:00 Fibrinogen 359.0 mg/dL (238-498) 03/19/19 23:15 Problem List - Problems (1) Small bowel perforation Assessment/Plan: Continuing supportive measures VAC dressing in place Once infection issues are addressed, will need plan for long-term management of her suspected small bowel crohn's. this would be best served at a tertiary care /IBD center. Code(s): K63.1 - PERFORATION OF INTESTINE (NONTRAUMATIC) (2) Clostridium difficile diarrhea Assessment/Plan: Continued on IV Abx Would continue PO vancocin until 1 week after antibiotics have been completed. Given that this is a recurrent C. Diff, would likely need tapering to completion once antibiotics have stopped ie: Vancocin: 125mg Q6H for 1 week 125mg Q8H for 1 week 125mg BID for 1 week 125mg daily for 1 week 125mg every other day for 1 week then stop Code(s): A04.72 - ENTEROCOLITIS D/T CLOSTRIDIUM DIFFICILE, NOT SPCF RECUR (3) Encounter for feeding tube placement Assessment/Plan: at this point, there no good window for endoscopic gastrostomy tube placement given that the VAC dressing extends up into the epigastrium. Could obtain IR consultation to see if radiographically placed G-Tube would be a viable option. Code(s): Z46.59 - ENCOUNTER FOR FIT/ADJST OF GI APPLIANCE AND DEVICE
[2019-04-06 18:39] LABS: BASO % 0.5 % (0-2.0); EOS % 1.2 % (0-4.5); HEMOGLOBIN 7.8 GM/dL (10.7-15.3); LYMPH % 8.5 % (8-40); MCH 28.2 pg (25.7-33.7); MCHC 32.6 g/dl (32.0-36.0); MEAN CELL VOLUME 86.7 fl (80-96); MEAN PLT VOLUME 7.6 fl (7.5-11.1); MONO % 6.9 % (3.8-10.2); NEUT % 82.9 % (42.8-82.8); PLATELET COUNT 546 K/MM3 (134-434); RBC 2.76 M/mm3 (3.60-5.2); RDW 23.5 % (11.6-15.6)
[2019-04-06 21:39] LABS: ARTERIAL BLD GAS O2 SATURATION 99.5 % (95-98); ARTERIAL BLOOD GAS BASE EXCESS 4.1 meq/l (-2-2); ARTERIAL BLOOD GAS PCO2 37.6 mmHg (35-45); ARTERIAL BLOOD GAS PO2 141 mmHg (80-100); ARTERIAL BLOOD GAS pH 7.48 (7.35-7.45)
[2019-04-06 21:40] LABS: ALLENS TEST POSITIVE
[2019-04-07] MEDS ORDERED: DEXTROSE 50%-WATER - 25 GM/50 ML VIAL IVPUSH ONE (00:11)
[2019-04-07] MEDS: INSULIN SLIDING SCALE (NOVOLOG) 1 VIAL SQ SCH ×5 (01:11→16:56)
[2019-04-07] MEDS ORDERED: MEROPENEM 500 MG VIAL (RESTRICTED TO ID) IVPB ONE ×3 (01:12→16:38)
[2019-04-07] MEDS ORDERED: DEXTROSE 5%-WATER 100 ML IVPB ONE ×3 (01:13→16:38)
[2019-04-07] MEDS: MEROPENEM 500 MG in DEXTROSE 5%-WATER 100 ML IVPB SCH ×3 (01:42→17:00)
[2019-04-07] MEDS: VANCOMYCIN 250 MG/5 ML ORAL SOLUTION PO SCH ×3 (05:34→19:00)
[2019-04-07 06:54] LABS: BASO % 0.5 % (0-2.0); EOS % 2.2 % (0-4.5); HEMATOCRIT 23.9 % (32.4-45.2); HEMOGLOBIN 7.9 GM/dL (10.7-15.3); LYMPH % 11.5 % (8-40); MCH 28.5 pg (25.7-33.7); MCHC 33.1 g/dl (32.0-36.0); MEAN PLT VOLUME 8.5 fl (7.5-11.1); MONO % 8.7 % (3.8-10.2); NEUT % 77.1 % (42.8-82.8); PLATELET COUNT 462 K/MM3 (134-434); RBC 2.78 M/mm3 (3.60-5.2); RDW 23.6 % (11.6-15.6); WHITE BLOOD COUNT 10.2 K/mm3 (4.0-10.0)
[2019-04-07 07:11] LABS: ALBUMIN 1.6 g/dl (3.4-5.0); BILIRUBIN,TOTAL 0.2 mg/dL (0.2-1); BLOOD UREA NITROGEN 7.1 mg/dL (7-18); CREATININE 0.4 mg/dL (0.55-1.3); MAGNESIUM 1.5 mg/dL (1.8-2.4); POTASSIUM 3.7 mmol/L (3.5-5.1); TOT PROT 5.4 g/dl (6.4-8.2)
[2019-04-07] MEDS ORDERED: SODIUM PHOSPHATE - 0 MM in DEXTROSE 5%-WATER - 250 ML IVPB ONE (07:33)
[2019-04-07] MEDS ORDERED: MAGNESIUM SULF 50% (8.12 MEQ/2 ML-1 GM VIAL) IVPB ONE (08:00)
[2019-04-07] MEDS ORDERED: SODIUM PHOSPHATE - 15 MM in DEXTROSE 5%-WATER - 250 ML IVPB ONE (08:31)
--- NOTE | 2019-04-07 08:31 | PN ---
Progress Note, Physician Chief Complaint: s/p tracheostomy. Remains on MV. More awake. following simple commands History of Present Illness: Patient is a 48 year old female admitted for septic shock 2/ to bowel perforation. she is s/p exp lap with resection of ilial perforation on 03/12. In the past she has had multiple admission for DKA. This hospitalization complicated with multiple episodes of respiratory failure, bacteremia, c-diff and DKA. she also had an episode of pulseless activity on 03/19/19 and was intubated after CPR performed. - Current Medication List Current Medications: Active Medications Amino Acids (Prosource No Carb Liquid Pkt) 30 ml PO DAILY [facility] Last Admin: 04/06/19 11:41 Dose: 30 ml Chlorhexidine Gluconate (Peridex -) 15 ml MM BID [facility] Last Admin: 04/06/19 21:15 Dose: 15 ml Dextrose (Glucose Tablet -) 4 gm PO PRN PRN PRN Reason: HYPOGLYCEMIA Enoxaparin Sodium (Lovenox -) 80 mg SQ DAILY [facility] Last Admin: 04/05/19 09:46 Dose: 80 mg Fentanyl 500 mcg/ Dextrose 100 mls @ 10 mls/hr IVPB TITR [facility] Last Admin: 04/06/19 12:53 Dose: Not Given Propofol (Diprivan -) 1,000,000 mcg in 100 mls @ 1.287 mls/hr IVPB TITR [facility]; Protocol Last Admin: 04/06/19 12:53 Dose: Not Given Midazolam HCl (Midazolam 100mg/100ml-0.9%Nacl) 100 mg in 100 mls @ 1 mls/hr IVPB TITR [facility]; Protocol Last Titration: 04/06/19 10:15 Dose: 0 mg/hr, 0 mls/hr Meropenem 500 mg/ Dextrose 100 mls @ 200 mls/hr IVPB Q8H-IV [facility] Last Admin: 04/07/19 01:42 Dose: 200 mls/hr Dextrose/Lactated Ringer's (D5-Lr -) 1,000 mls @ 75 mls/hr IV ASDIR [facility] Last Admin: 04/06/19 11:42 Dose: 75 mls/hr Insulin Human Regular 100 (units/ Sodium Chloride) 100 mls @ 5.38 mls/hr IVPB TITR [facility]; Protocol Last Titration: 04/05/19 19:00 Dose: 0 units/kg/hr, 0 mls/hr Sodium Phosphate / Dextrose 250 mls @ 62.5 mls/hr IVPB ONCE ONE Stop: 04/07/19 11:32 Insulin Aspart (Novolog Vial Sliding Scale -) 1 vial SQ Q4H [facility]; Protocol Last Admin: 04/07/19 05:35 Dose: Not Given Ondansetron HCl (Zofran Injection) 4 mg IVPUSH Q6H PRN PRN Reason: NAUSEA AND/OR VOMITING Last Admin: 03/14/19 05:07 Dose: 4 mg Pantoprazole Sodium (Protonix Iv) 40 mg IVPUSH BID [facility] Last Admin: 04/06/19 21:15 Dose: 40 mg Vancomycin HCl (Vancomycin Oral Solution) 125 mg PO Q6HPO [facility] Last Admin: 04/07/19 05:34 Dose: 125 mg - Objective Vital Signs: Vital Signs Temperature 98.3 F 04/07/19 08:00 Pulse Rate 99 H 04/07/19 08:00 Respiratory Rate 24 H 04/07/19 08:00 Blood Pressure 131/75 04/07/19 08:00 O2 Sat by Pulse Oximetry (%) 100 04/06/19 21:00 Additional Findings/Remarks: Constitutional: Yes: Other (sedated and intubated) Eyes: Yes: WNL, Conjunctiva Clear HENT: Yes: WNL, Atraumatic, Normocephalic Neck: Yes: WNL, Supple,trach noted to MV Cardiovascular: Yes: Regular Rate and Rhythm, Tachycardia Respiratory: Yes: trach to MV Gastrointestinal: Yes: Normal Bowel Sounds, Soft,VAC dressings in place. NGT to left nares ...Rectal Exam: Yes: rectal tube with liquid stool Genitourinary: Yes: Lott Present Breast(s): Yes: WNL Musculoskeletal: Yes: Muscle Weakness Edema: Yes Edema: LUE: 2+, RUE: 2+, LLE: 2+, RLE: 2+ Peripheral Pulses WNL: Yes Peripheral Pulses: Left Radial: 1+, Right Radial: 1+, Left Doralis Pedis: 1+, Right Dorsalis Pedis: 1+, Left Femoral: 1+, Right Femoral: 1+ Integumentary: Yes: Bruising Wound/Incision: Yes: Unapproximated (dihescense at distal portion of abd incision) Vac in place Neurological: Yes: Other off sedation. following simple commands Labs: CBC, BMP 04/07/19 05:40 04/07/19 05:40 INR, PTT INR 0.95 (0.83-1.09) 03/26/19 06:00 Fibrinogen 359.0 mg/dL (238-498) 03/19/19 23:15 Problem List - Problems (1) HLD (hyperlipidemia) Assessment/Plan: NPO Code(s): E78.5 - HYPERLIPIDEMIA, UNSPECIFIED (2) Left-sided weakness Assessment/Plan: PT when no longer requiring ICU monitoring Code(s): R53.1 - WEAKNESS (3) History of open heart surgery Code(s): Z98.890 - OTHER SPECIFIED POSTPROCEDURAL STATES (4) Acute Crohn's disease Assessment/Plan: history of chrons followed at [facility], was suppose to start infliximab but never followed through off steroids Code(s): K50.90 - CROHN'S DISEASE, UNSPECIFIED, WITHOUT COMPLICATIONS (5) Gastroparesis Code(s): K31.84 - GASTROPARESIS (6) Abdominal pain Assessment/Plan: s/p bowel resection with viscous repair general surgery following wound dihensence noted at distal portion, vac in place dressing changes as per surgery Code(s): R10.9 - UNSPECIFIED ABDOMINAL PAIN Qualifiers: Abdominal location: generalized Qualified Code(s): R10.84 - Generalized abdominal pain (7) Small bowel obstruction Assessment/Plan: s/p perforated viscus repair dressing changes as per surgical team Code(s): K56.609 - UNSP INTESTNL OBST, UNSP TO PARTIAL VERSUS COMPLETE OBST (8) Cerebrovascular accident (CVA) Assessment/Plan: left sided weakness PT to follow when no longer requiring ICU care Code(s): I63.9 - CEREBRAL INFARCTION, UNSPECIFIED Qualifiers: CVA mechanism: unspecified Qualified Code(s): I63.9 - Cerebral infarction, unspecified (9) Chronic pain Assessment/Plan: off all sedation dilaudid prn pain Code(s): G89.29 - OTHER CHRONIC PAIN Qualifiers: Chronic pain type: chronic pain syndrome Qualified Code(s): G89.4 - Chronic pain syndrome (10) Prophylactic measure Assessment/Plan: FEN Jevity monitor electrolytes IVF DVT lovenox sq Dispo requires ICU care full code palliative care following prognosis critical discharge planning-request placed for [facility] Code(s): Z29.9 - ENCOUNTER FOR PROPHYLACTIC MEASURES, UNSPECIFIED (11) Diabetes Assessment/Plan: insulin d/cd, now on long short acting insulin q4 c/w d5 @ 75cc/hr with close monitoring of BGMs. careful glycemic control with multiple episodes of DKA levemir on hold Code(s): E11.9 - TYPE 2 DIABETES MELLITUS WITHOUT COMPLICATIONS (12) Perforated abdominal viscus Assessment/Plan: s/p Ex-lap/RAYSHAWN/partial SB and omental resection with anastomosis/washou appreciate surgical and ID consultation c/w abx wound vac changes by dr aceves Code(s): [id number] - (13) Hypoxia Assessment/Plan: Acute respiratory failure s/p tracheostomy wean to PS as tolerated trach care appreciate ICU level of care Code(s): R09.02 - HYPOXEMIA (14) C. difficile diarrhea Assessment/Plan: -Continue vancomycin PO Dr Mark following continue PO vanco until 1 week after antibiotics have been completed. Given that this is a recurrent C. Diff, would likely need tapering to completion once antibiotics have stopped Vanco: 125mg Q6H for 1 week 125mg Q8H for 1 week 125mg BID for 1 week 125mg daily for 1 week 125mg every other day for 1 week then stop -c/w rectal tube Code(s): A04.72 - ENTEROCOLITIS D/T CLOSTRIDIUM DIFFICILE, NOT SPCF RECUR (15) ESBL (extended spectrum beta-lactamase) producing bacteria infection Assessment/Plan: ESBL in wound appreciate ID consultation -Dr. Pimentel c/w linezolid, vanco, sylvester - Cx + LF neg bacilli - UCx + VRE - CDiff Ag and toxin pos - WBC down to 8.5 Code(s): A49.9 - BACTERIAL INFECTION, UNSPECIFIED; Z16.12 - EXTENDED SPECTRUM BETA LACTAMASE (ESBL) RESISTANCE (16) Admitted to intensive care unit Assessment/Plan: appreciate ICU level of care Code(s): Z78.9 - OTHER SPECIFIED HEALTH STATUS (17) Tracheostomy in place Assessment/Plan: s/p tracheostomy wean to PS as tolerated trach care Code(s): Z93.0 - TRACHEOSTOMY STATUS (18) Severe malnutrition Assessment/Plan: as evidenced by BMI 19, temporal wasting, alb 1.6 c/w [facility] prosource evaluation for possible PEG placement Code(s): E43 - UNSPECIFIED SEVERE PROTEIN-CALORIE MALNUTRITION Visit type - Emergency Visit Emergency Visit: Yes ED Registration Date: 03/09/19 Care time: The patient presented to the Emergency Department on the above date and was hospitalized for further evaluation of their emergent condition. - New Patient This patient is new to me today: No - Critical Care Critical Care patient: Yes Total Critical Care Time (in minutes): 40 Critical Care Statement: The care of this patient involved high complexity decision making to prevent further life threatening deterioration of the patient 's condition and/or to evaluate & treat vital organ system(s) failure or risk of failure. - Discharge Referral Referred to [facility] No
--- NOTE | 2019-04-07 08:56 | PN ---
Progress Note (short form) - Note Progress Note: Awake On Tube feding Intubated Off sedation now Vital Signs Period Temp Pulse Resp BP Sys/Rapp Pulse Ox Last 24 Hr 97.3 F-98.9 F 93-110 22-30 112-142/69-84 100-100 PE: Intubated, s/P tracheostomy, lethargic Neck: supple Lungs: CTA CVS: s1S2 Abd: Benign Neuro: intubated CMP Sodium 141 mmol/L (136-145) 04/07/19 05:40 Potassium 3.7 mmol/L (3.5-5.1) 04/07/19 05:40 Chloride 104 mmol/L (98-107) 04/07/19 05:40 Carbon Dioxide 30 mmol/L (21-32) 04/07/19 05:40 Anion Gap 7 MMOL/L (8-16) L 04/07/19 05:40 BUN 7.1 mg/dL (7-18) 04/07/19 05:40 Creatinine 0.4 mg/dL (0.55-1.3) L 04/07/19 05:40 Est GFR (CKD-EPI)AfAm 141.75 04/07/19 05:40 Est GFR (CKD-EPI)NonAf 122.30 04/07/19 05:40 POC Glucometer 144 UNITS (80-120) 04/07/19 05:26 Random Glucose 144 mg/dL (74-106) H 04/07/19 05:40 Hemoglobin A1c % 9.8 % (4.2-6.3) H 03/10/19 07:20 Lactic Acid 1.8 mmol/L (0.4-2.0) 04/02/19 01:00 Calcium 8.0 mg/dL (8.5-10.1) L 04/07/19 05:40 Phosphorus 2.0 mg/dL (2.5-4.9) L 04/07/19 05:40 Magnesium 1.5 mg/dL (1.8-2.4) L 04/07/19 05:40 Iron 125 ug/dL (50-175) 03/20/19 17:00 TIBC 124 ug/dL (250-450) L 03/20/19 17:00 Iron Saturation 100 % (17.5-39) H 03/20/19 17:00 Unsaturated IBC -1 ug/dL (200-275) L 03/20/19 17:00 Ferritin 220.2 ng/ml (8-388) 03/20/19 17:00 Total Bilirubin 0.2 mg/dL (0.2-1) 04/07/19 05:40 AST 17 U/L (15-37) 04/07/19 05:40 ALT 12 U/L (13-61) L 04/07/19 05:40 Alkaline Phosphatase 167 U/L (45-117) H 04/07/19 05:40 Creatine Kinase 109 U/L (26-192) 03/19/19 15:40 Troponin I 1.94 ng/ml (0.00-0.05) H* 03/19/19 23:15 C-Reactive Protein 43.2 MG/DL (0.00-0.3) H 03/11/19 05:10 Total Protein 5.4 g/dl (6.4-8.2) L 04/07/19 05:40 Albumin 1.6 g/dl (3.4-5.0) L 04/07/19 05:40 Prealbumin 7.0 mg/dl (20-40) L 03/19/19 05:00 Lipase 58 U/L (73-393) L 03/09/19 17:55 Beta-Hydroxybutyrate 0.9 mg/dL (0.2-2.8) 03/22/19 05:10 Current Medications Generic Name Dose Route Start Last Admin Trade Name Freq PRN Reason Stop Dose Admin Amino Acids 30 ml 03/26/19 15:30 04/06/19 11:41 Prosource No Carb Liquid Pkt PO 30 ml DAILY [facility] Administration Chlorhexidine Gluconate 15 ml 03/29/19 10:00 04/06/19 21:15 Peridex - MM 15 ml BID [facility] Administration Dextrose 4 gm 03/28/19 23:06 Glucose Tablet - PO PRN PRN HYPOGLYCEMIA Enoxaparin Sodium 80 mg 04/01/19 11:15 04/05/19 09:46 Lovenox - SQ 80 mg DAILY [facility] Administration Fentanyl 500 mcg/ Dextrose 100 mls @ 10 mls/hr 04/01/19 12:00 04/06/19 12:53 IVPB Not Given TITR [facility] 50 MCG/HR Propofol 1,000,000 mcg in 100 mls @ 1.287 mls/hr 04/01/19 12:00 04/06/19 12: 53 Diprivan - IVPB Not Given TITR [facility] Protocol 5 MCG/KG/MIN Midazolam HCl 100 mg in 100 mls @ 1 mls/hr 04/01/19 20:00 04/06/19 10:15 Midazolam 100mg/100ml-0.9%Nacl IVPB 0 mg/hr TITR [facility] 0 mls/hr Titration Protocol 1 MG/HR Meropenem 500 mg/ Dextrose 100 mls @ 200 mls/hr 04/06/19 02:00 04/07/19 01:42 IVPB 200 mls/hr Q8H-IV [facility] Administration Dextrose/Lactated Ringer's 1,000 mls @ 75 mls/hr 04/05/19 10:30 04/06/19 11: 42 D5-Lr - IV 75 mls/hr ASDIR [facility] Administration Insulin Human Regular 100 100 mls @ 5.38 mls/hr 04/05/19 10:30 04/05/19 19:00 units/ Sodium Chloride IVPB 0 units/kg/hr TITR [facility] 0 mls/hr Titration Protocol 0.1 UNITS/KG/HR Sodium Phosphate 15 mm/ 255 mls @ 62.5 mls/hr 04/07/19 08:31 Dextrose IVPB 04/07/19 11:37 ONCE ONE Insulin Aspart 1 vial 04/06/19 13:16 04/07/19 05:35 Novolog Vial Sliding Scale - SQ Not Given Q4H [facility] Protocol Ondansetron HCl 4 mg 03/11/19 20:31 03/14/19 05:07 Zofran Injection IVPUSH 4 mg Q6H PRN Administration NAUSEA AND/OR VOMITING Pantoprazole Sodium 40 mg 03/30/19 10:00 04/06/19 21:15 Protonix Iv IVPUSH 40 mg BID [facility] Administration Vancomycin HCl 125 mg 03/15/19 18:00 04/07/19 05:34 Vancomycin Oral Solution PO 125 mg Q6HPO [facility] Administration AP: T1DM with acidosis: Acidosis resolved S/P Tracheostomy s/p Cardiopulmonary Arrest R/o Anoxic Brain Injury Acute Hypoxic Respiratory Failure Perforated Small Bowel s/p ex-lap/RAYSHAWN/segmental SB resection Crohn's Disease Peritonitis +C diff Colitis Septic Shock/Lactic Acidosis h/o PE HTN h/o CVA Pt s/p Tracheostomy Iv hydration as necessary, on D5 ringer's lactate, continue same until tube feeding is started and tolerated Add D5NS whenever tube feeding is on hold for any reason Off Insulin drip BGM Q 6 hour Levemir 6 units stat and daily Novolog coverage Q 6 hrs Replace electrolytes as necessary
--- NOTE | 2019-04-07 09:08 | PN ---
Progress Note (short form) - Note Progress Note: THORACIC SURGERY 48yo female s/p recent arrest complicated by anoxic brain injury. Now POD #1 s/ p bedside tracheostomy. No acute events since surgery per RN notes. Last Vital Signs Temp Pulse Resp BP Pulse Ox 98.3 F 99 H 24 H 131/75 100 04/07/19 08:00 04/07/19 08:00 04/07/19 08:00 04/07/19 08:00 04/07/19 08:00 CBC, BMP 04/07/19 05:40 04/07/19 05:40 INR INR 0.95 (0.83-1.09) 03/26/19 06:00 Gen: nad Neck: trach in place. vented. no oozing Problem List - Problems (1) Anoxic brain injury Assessment/Plan: POD #1 s/p bedside trach Vent management as per Pulm/Respiratory Cont ICU management Thoracic surgery signing off. Reconsult PRM. On behalf of Dr. Ignacio, thank you for the opportunity to participate in your patient's care. Code(s): G93.1 - ANOXIC BRAIN DAMAGE, NOT ELSEWHERE CLASSIFIED (2) C. difficile diarrhea Code(s): A04.72 - ENTEROCOLITIS D/T CLOSTRIDIUM DIFFICILE, NOT SPCF RECUR (3) HTN (hypertension) Code(s): I10 - ESSENTIAL (PRIMARY) HYPERTENSION (4) Hypoxia Code(s): R09.02 - HYPOXEMIA (5) Anemia Code(s): D64.9 - ANEMIA, UNSPECIFIED (6) Cerebrovascular accident (CVA) Code(s): I63.9 - CEREBRAL INFARCTION, UNSPECIFIED Qualifiers: CVA mechanism: unspecified Qualified Code(s): I63.9 - Cerebral infarction, unspecified
[2019-04-07] MEDS: PANTOPRAZOLE SODIUM 40 MG VIAL IVPUSH SCH (09:18)
[2019-04-07 10:30] LABS: ARTERIAL BLD GAS O2 SATURATION 99.4 % (95-98); ARTERIAL BLOOD GAS BASE EXCESS 3.4 meq/l (-2-2); ARTERIAL BLOOD GAS PCO2 40.8 mmHg (35-45); ARTERIAL BLOOD GAS PO2 152 mmHg (80-100); ARTERIAL BLOOD GAS pH 7.44 (7.35-7.45)
[2019-04-07] MEDS: INSULIN REGULAR 100 UNITS in SODIUM CHLORIDE 99 ML IVPB SCH (10:30)
[2019-04-07] MEDS: DEXTROSE 5%-LACTATED RINGERS 1,000 ML IV SCH ×2 (10:30→12:31)
[2019-04-07] MEDS: AMINO ACIDS/PROTEIN HYDROLYS 30 ML LIQUID.PKT PO SCH (10:36)
[2019-04-07] MEDS: CHLORHEXIDINE GLUCONATE 0.12% 15ML CUP MM SCH (10:36)
[2019-04-07 10:53] LABS: ALLENS TEST POSITIVE
--- NOTE | 2019-04-07 11:07 | PN ---
Progress Note, Physician Chief Complaint: Abdominal Pain History of Present Illness: 48yo female PMH HTN, CVA (left sided hemiparesis), HLD, IDDM, DKA resulting in multiple admissions, dysphagia, gastroparesis, esophageal stricture (EGD 02/14), c/diff (10/2018), SBO September 2018 (s/p SB resection at [facility] as per pt report) presented to [place] ED on the afternoon of 12/21 with complaints of N/V/D/ abd pain intermittently for years. She is clinically improved but can not yet bee weened. Continues to spike high fevers - Current Medication List Current Medications: Active Medications Amino Acids (Prosource No Carb Liquid Pkt) 30 ml PO DAILY [facility] Last Admin: 04/07/19 10:36 Dose: 30 ml Chlorhexidine Gluconate (Peridex -) 15 ml MM BID [facility] Last Admin: 04/07/19 10:36 Dose: 15 ml Dextrose (Glucose Tablet -) 4 gm PO PRN PRN PRN Reason: HYPOGLYCEMIA Enoxaparin Sodium (Lovenox -) 80 mg SQ DAILY [facility] Last Admin: 04/05/19 09:46 Dose: 80 mg Fentanyl 500 mcg/ Dextrose 100 mls @ 10 mls/hr IVPB TITR [facility] Last Admin: 04/06/19 12:53 Dose: Not Given Propofol (Diprivan -) 1,000,000 mcg in 100 mls @ 1.287 mls/hr IVPB TITR [facility]; Protocol Last Admin: 04/06/19 12:53 Dose: Not Given Midazolam HCl (Midazolam 100mg/100ml-0.9%Nacl) 100 mg in 100 mls @ 1 mls/hr IVPB TITR [facility]; Protocol Last Titration: 04/06/19 10:15 Dose: 0 mg/hr, 0 mls/hr Meropenem 500 mg/ Dextrose 100 mls @ 200 mls/hr IVPB Q8H-IV [facility] Last Admin: 04/07/19 10:36 Dose: 200 mls/hr Dextrose/Lactated Ringer's (D5-Lr -) 1,000 mls @ 75 mls/hr IV ASDIR [facility] Last Admin: 04/07/19 10:30 Dose: Not Given Insulin Human Regular 100 (units/ Sodium Chloride) 100 mls @ 5.38 mls/hr IVPB TITR [facility]; Protocol Last Admin: 04/07/19 10:30 Dose: Not Given Sodium Phosphate 15 mm/ (Dextrose) 255 mls @ 62.5 mls/hr IVPB ONCE ONE Stop: 04/07/19 11:37 Last Admin: 04/07/19 09:17 Dose: 62.5 mls/hr Insulin Aspart (Novolog Vial Sliding Scale -) 1 vial SQ Q4H [facility]; Protocol Last Admin: 04/07/19 09:23 Dose: 5 units Ondansetron HCl (Zofran Injection) 4 mg IVPUSH Q6H PRN PRN Reason: NAUSEA AND/OR VOMITING Last Admin: 03/14/19 05:07 Dose: 4 mg Pantoprazole Sodium (Protonix Iv) 40 mg IVPUSH BID [facility] Last Admin: 04/07/19 09:18 Dose: 40 mg Vancomycin HCl (Vancomycin Oral Solution) 125 mg PO Q6HPO [facility] Last Admin: 04/07/19 05:34 Dose: 125 mg - Objective Vital Signs: Vital Signs Temperature 98.4 F 04/07/19 10:00 Pulse Rate 110 H 04/07/19 10:00 Respiratory Rate 24 H 04/07/19 10:00 Blood Pressure 156/85 04/07/19 10:00 O2 Sat by Pulse Oximetry (%) 100 04/07/19 08:00 Vital Signs Period Temp Pulse Resp BP Sys/Rapp Pulse Ox Last 24 Hr 98.5 F-101.3 F 83-109 20-30 113-156/65-93 97-100 Intake & Output 04/09/19 04/10/19 04/10/19 23:59 07:59 15:59 Intake Total 1150 Output Total 200 600 Balance 950 -600 Weight 127 lb 1 oz Intake: IV 750 D5-Lr - 1,000 ml @ 75 mls 750 /hr IV ASDIR [facility] Rx#: [id number] IVPB 300 Tube Irrigant 100 Output: Drainage 200 Medial Abdomen 200 Urine 600 Lott 600 Other: Voiding Method Indwelling Catheter Bowel Movement No Yes Weight Measurement Method Built in Bedscale Constitutional: Yes: No Distress, Calm, Cachectic Eyes: Yes: Conjunctiva Clear, EOM Intact HENT: Yes: Atraumatic, Normocephalic Neck: Yes: Supple, Trachea Midline Cardiovascular: Yes: Regular Rate and Rhythm, S1, S2 Respiratory: Yes: Regular, CTA Bilaterally, Diminished, Mechanically Ventilated , Rales Gastrointestinal: Yes: Normal Bowel Sounds, Soft ...Rectal Exam: Yes: Deferred, Other (rectal appliance) Genitourinary: No: CVA Tenderness - Left, CVA Tenderness - Right Breast(s): No: Mass, Skin Changes Musculoskeletal: No: Muscle Pain, Muscle Weakness Extremities: No: Cool, Cyanosis Edema: No Edema: LUE: 2+, RUE: 2+, LLE: 2+, RLE: 2+ Peripheral Pulses WNL: No Peripheral Pulses: Left Radial: 2+, Right Radial: 2+, Left Doralis Pedis: 2+, Right Dorsalis Pedis: 2+, Left Femoral: 2+, Right Femoral: 2+ Integumentary: No: Jaundice Wound/Incision: Yes: Clean/Dry Neurological: Yes: Alert. No: Oriented Psychiatric: Yes: Alert. No: Oriented Labs: CBC, BMP 04/07/19 05:40 04/07/19 05:40 INR, PTT INR 0.95 (0.83-1.09) 03/26/19 06:00 Fibrinogen 359.0 mg/dL (238-498) 03/19/19 23:15 Microbiology 04/08/19 16:25 Blood - Peripheral Venous Blood Culture - Preliminary NO GROWTH OBTAINED AFTER 24 HOURS, INCUBATION TO CONTINUE FOR 4 DAYS. 04/08/19 16:25 Blood - Peripheral Venous Blood Culture - Preliminary NO GROWTH OBTAINED AFTER 24 HOURS, INCUBATION TO CONTINUE FOR 4 DAYS. 04/02/19 19:20 Blood - Peripheral Venous Blood Culture - Final NO GROWTH AFTER 5 DAYS INCUBATION 04/02/19 19:30 Blood - Peripheral Venous Blood Culture - Final NO GROWTH AFTER 5 DAYS INCUBATION 04/02/19 18:20 Sputum - Endotrachea Suction/Ventilator Gram Stain - Final 04/02/19 18:20 Sputum - Endotrachea Suction/Ventilator Sputum Culture - Final Klebsiella Pneumoniae - Esbl 04/03/19 05:00 Urine - Urine Lott Urine Culture - Final NO GROWTH OBTAINED 03/31/19 00:00 Sputum - Endotrachea Suction/Ventilator Gram Stain - Final 03/31/19 00:00 Sputum - Endotrachea Suction/Ventilator Sputum Culture - Final Yeast Like Organism 03/28/19 10:40 Blood - Peripheral Venous Blood Culture - Final NO GROWTH AFTER 5 DAYS INCUBATION 03/28/19 11:03 Blood - Peripheral Venous Blood Culture - Final NO GROWTH AFTER 5 DAYS INCUBATION 03/26/19 08:30 Blood - Central Line Blood Culture - Final NO GROWTH AFTER 5 DAYS INCUBATION 03/25/19 18:30 Blood - Peripheral Venous Blood Culture - Final NO GROWTH AFTER 5 DAYS INCUBATION 03/25/19 18:30 Blood - Peripheral Venous Blood Culture - Final NO GROWTH AFTER 5 DAYS INCUBATION 03/25/19 17:00 Blood - Central Line Blood Culture - Final NO GROWTH AFTER 5 DAYS INCUBATION 03/21/19 18:15 Blood - Central Line Blood Culture - Final NO GROWTH AFTER 5 DAYS INCUBATION 03/21/19 13:25 Blood - Central Line Blood Culture - Final NO GROWTH AFTER 5 DAYS INCUBATION 03/23/19 19:00 Sputum - Endotrachea Suction/Ventilator Gram Stain - Final 03/23/19 19:00 Sputum - Endotrachea Suction/Ventilator Sputum Culture - Final Yeast Like Organism 03/23/19 19:00 Urine - Urine Lott Urine Culture - Final NO GROWTH OBTAINED 03/12/19 19:30 Peritoneal Fluid Gram Stain - Final 03/12/19 19:30 Peritoneal Fluid Body Fluid Culture - Final Klebsiella Pneumoniae - Esbl Enterococcus Faecalis 03/12/19 19:30 Peritoneal Fluid Anaerobic Culture - Final NO ANAEROBES WERE ISOLATED 03/14/19 23:00 Stool Clostridioides difficile Antigen - Final 03/14/19 23:00 Stool Clostridioides difficile Toxin Assay - Final 03/10/19 08:30 Blood - Arterial Blood Culture - Final NO GROWTH AFTER 5 DAYS INCUBATION 03/10/19 08:00 Blood - Arterial Blood Culture - Final NO GROWTH AFTER 5 DAYS INCUBATION 03/09/19 17:00 Urine - Urine Clean Catch Urine Culture - Final Vr Ec Faecium Problem List - Problems (1) Small bowel obstruction Assessment/Plan: 48yo female with MMP including SBO, chronic constipation, Gastroparesis and crohns disease presenting with Abdominal pain. She has several possible explanations for this pain. POD#22 Exp Lap and Segmental resection of small intestinal perforation. Poor saturation and hospital acquired infections ESBL and Cdiff. Intubated overnight. GIB now improved H&H following transfusion. respiratory status is improving. Monitored Setting ICU management VAC dressing changed, due 10/ Antibiotics per ID Transfuse as need crohns management will follow This patient is critically ill. Time spent reviewing chart, examining patient, talking with providers and/or family and documentation is 35 minutes. Code(s): K56.609 - UNSP INTESTNL OBST, UNSP TO PARTIAL VERSUS COMPLETE OBST (2) Abdominal pain Code(s): R10.9 - UNSPECIFIED ABDOMINAL PAIN Qualifiers: Abdominal location: generalized Qualified Code(s): R10.84 - Generalized abdominal pain (3) Crohn's disease Code(s): K50.90 - CROHN'S DISEASE, UNSPECIFIED, WITHOUT COMPLICATIONS Qualifiers: Gastrointestinal tract location: small intestine Digestive disease complication type: with rectal bleeding Qualified Code(s): K50.011 - Crohn's disease of small intestine with rectal bleeding (4) DKA (diabetic ketoacidoses) Code(s): E13.10 - OTH DIABETES MELLITUS WITH KETOACIDOSIS WITHOUT COMA Qualifiers: Diabetes mellitus type: type 1 Diabetes mellitus complication detail: without coma Qualified Code(s): E10.10 - Type 1 diabetes mellitus with ketoacidosis without coma (5) Nausea & vomiting Code(s): R11.2 - NAUSEA WITH VOMITING, UNSPECIFIED Qualifiers: Vomiting type: cyclical vomiting Vomiting Intractability: intractable (6) Cerebrovascular accident (CVA) Code(s): I63.9 - CEREBRAL INFARCTION, UNSPECIFIED Qualifiers: CVA mechanism: unspecified Qualified Code(s): I63.9 - Cerebral infarction, unspecified
--- NOTE | 2019-04-07 11:59 | PN ---
Teaching Attending Note Name of Resident: Howie Chavis ATTENDING PHYSICIAN STATEMENT I saw and evaluated the patient. I reviewed the resident's note and discussed the case with the resident. I agree with the resident's findings and plan as documented. SUBJECTIVE: Pt seen and examined in the ICU. Vented, awake but not following commands. OBJECTIVE: Vital Signs Period Temp Pulse Resp BP Sys/Rapp Pulse Ox Last 24 Hr 97.9 F-98.9 F 95-110 22-30 112-156/69-85 100-100 Intake & Output 04/04/19 04/05/19 04/06/19 04/07/19 23:59 23:59 23:59 23:59 Intake Total 2375 3337.1 2040 350 Output Total 2810 2000 1105 900 Balance -435 1337.1 935 -550 Weight 53.8 kg 53.8 kg 47.219 kg 50.984 kg Gen: vented, awake, tachypneic Heart: RRR Lung: decreased breath sounds at the bases Abd: soft, nontender, +wound vac Ext: + edema CBC, BMP 04/07/19 05:40 04/07/19 05:40 Active Medications Amino Acids (Prosource No Carb Liquid Pkt) 30 ml PO DAILY [facility] Last Admin: 04/07/19 10:36 Dose: 30 ml Chlorhexidine Gluconate (Peridex -) 15 ml MM BID [facility] Last Admin: 04/07/19 10:36 Dose: 15 ml Dextrose (Glucose Tablet -) 4 gm PO PRN PRN PRN Reason: HYPOGLYCEMIA Enoxaparin Sodium (Lovenox -) 80 mg SQ DAILY [facility] Last Admin: 04/05/19 09:46 Dose: 80 mg Fentanyl 500 mcg/ Dextrose 100 mls @ 10 mls/hr IVPB TITR [facility] Last Admin: 04/06/19 12:53 Dose: Not Given Propofol (Diprivan -) 1,000,000 mcg in 100 mls @ 1.287 mls/hr IVPB TITR [facility]; Protocol Last Admin: 04/06/19 12:53 Dose: Not Given Midazolam HCl (Midazolam 100mg/100ml-0.9%Nacl) 100 mg in 100 mls @ 1 mls/hr IVPB TITR [facility]; Protocol Last Titration: 04/06/19 10:15 Dose: 0 mg/hr, 0 mls/hr Meropenem 500 mg/ Dextrose 100 mls @ 200 mls/hr IVPB Q8H-IV [facility] Last Admin: 04/07/19 10:36 Dose: 200 mls/hr Dextrose/Lactated Ringer's (D5-Lr -) 1,000 mls @ 75 mls/hr IV ASDIR [facility] Last Admin: 04/07/19 10:30 Dose: Not Given Insulin Human Regular 100 (units/ Sodium Chloride) 100 mls @ 5.38 mls/hr IVPB TITR [facility]; Protocol Last Admin: 04/07/19 10:30 Dose: Not Given Insulin Aspart (Novolog Vial Sliding Scale -) 1 vial SQ Q4H [facility]; Protocol Last Admin: 04/07/19 09:23 Dose: 5 units Ondansetron HCl (Zofran Injection) 4 mg IVPUSH Q6H PRN PRN Reason: NAUSEA AND/OR VOMITING Last Admin: 03/14/19 05:07 Dose: 4 mg Pantoprazole Sodium (Protonix Iv) 40 mg IVPUSH BID [facility] Last Admin: 04/07/19 09:18 Dose: 40 mg Vancomycin HCl (Vancomycin Oral Solution) 125 mg PO Q6HPO [facility] Last Admin: 04/07/19 05:34 Dose: 125 mg ASSESSMENT AND PLAN: s/p Cardiopulmonary Arrest r/o Anoxic Brain Injury Acute Hypoxic Respiratory Failure Perforated Small Bowel s/p ex-lap/RAYSHAWN/segmental SB resection Crohn's Disease Peritonitis +C diff Colitis Septic Shock Lactic Acidosis Volume Overload h/o PE HTN DM Hyperlipidemia Anemia Thrombocytopenia h/o CVA - antibiotics per ID - lasix as needed - monitor urine output, creatinine - replete lytes - off pressors, maintain MAP > 65 - continue anticoagulation - minimize sedation to assess mental status - enteral feeds, will need PEG placement - DVT/GI prophylaxis - can monitor on vent floor critical care time spent in reviewing chart, evaluating patient and formulating plan 35 minutes
[2019-04-07] MEDS: PROPOFOL 1,000,000 MCG/100 ML VIAL IVPB SCH (12:00)
[2019-04-07] MEDS: FENTANYL INJECTION 500 MCG in DEXTROSE 5%-WATER - 90 ML IVPB SCH (12:00)
--- NOTE | 2019-04-07 13:23 | PN ---
Progress Note, Physician - Current Medication List Current Medications: Active Medications Amino Acids (Prosource No Carb Liquid Pkt) 30 ml PO DAILY [facility] Last Admin: 04/07/19 10:36 Dose: 30 ml Chlorhexidine Gluconate (Peridex -) 15 ml MM BID [facility] Last Admin: 04/07/19 10:36 Dose: 15 ml Dextrose (Glucose Tablet -) 4 gm PO PRN PRN PRN Reason: HYPOGLYCEMIA Enoxaparin Sodium (Lovenox -) 80 mg SQ DAILY [facility] Last Admin: 04/05/19 09:46 Dose: 80 mg Fentanyl 500 mcg/ Dextrose 100 mls @ 10 mls/hr IVPB TITR [facility] Last Admin: 04/07/19 12:00 Dose: Not Given Propofol (Diprivan -) 1,000,000 mcg in 100 mls @ 1.287 mls/hr IVPB TITR [facility]; Protocol Last Admin: 04/07/19 12:00 Dose: Not Given Midazolam HCl (Midazolam 100mg/100ml-0.9%Nacl) 100 mg in 100 mls @ 1 mls/hr IVPB TITR [facility]; Protocol Last Titration: 04/06/19 10:15 Dose: 0 mg/hr, 0 mls/hr Meropenem 500 mg/ Dextrose 100 mls @ 200 mls/hr IVPB Q8H-IV [facility] Last Admin: 04/07/19 10:36 Dose: 200 mls/hr Dextrose/Lactated Ringer's (D5-Lr -) 1,000 mls @ 75 mls/hr IV ASDIR [facility] Last Admin: 04/07/19 12:31 Dose: 75 mls/hr Insulin Human Regular 100 (units/ Sodium Chloride) 100 mls @ 5.38 mls/hr IVPB TITR [facility]; Protocol Last Admin: 04/07/19 10:30 Dose: Not Given Insulin Aspart (Novolog Vial Sliding Scale -) 1 vial SQ Q4H [facility]; Protocol Last Admin: 04/07/19 13:16 Dose: 6 units Ondansetron HCl (Zofran Injection) 4 mg IVPUSH Q6H PRN PRN Reason: NAUSEA AND/OR VOMITING Last Admin: 03/14/19 05:07 Dose: 4 mg Pantoprazole Sodium (Protonix Iv) 40 mg IVPUSH BID [facility] Last Admin: 04/07/19 09:18 Dose: 40 mg Vancomycin HCl (Vancomycin Oral Solution) 125 mg PO Q6HPO [facility] Last Admin: 04/07/19 12:30 Dose: 125 mg - Objective Vital Signs: Vital Signs Temperature 98.1 F 04/07/19 12:00 Pulse Rate 101 H 04/07/19 12:00 Respiratory Rate 222 H 04/07/19 12:00 Blood Pressure 130/72 04/07/19 12:00 O2 Sat by Pulse Oximetry (%) 100 04/07/19 08:00 Labs: CBC, BMP 04/07/19 05:40 04/07/19 05:40 INR, PTT INR 0.95 (0.83-1.09) 03/26/19 06:00 Fibrinogen 359.0 mg/dL (238-498) 03/19/19 23:15
--- NOTE | 2019-04-07 15:24 | PN ---
Physical Exam: SUBJECTIVE: Patient seen and examined in ICU. No acute events, s/p trach placement. OBJECTIVE: Vital Signs Period Temp Pulse Resp BP Sys/Rapp Pulse Ox Last 24 Hr 98.1 F-98.8 F 95-110 19-30 118-156/69-85 100-100 GENERAL: The patient is awake, breathing okay on trach. NECK: supple. LUNGS: Breath sounds roncherous b/l worse at bases. HEART: tachycardic with regular rhythym, S1, S2 without murmur, rub or gallop. ABDOMEN: Soft, nontender, nondistended, wound vac in place and draining fine EXTREMITIES: warm, well-perfused, upper extremity worse on RUE than LUE, improved lower extremity edema. NEUROLOGICAL: pt tracking, but nonresponsive to all commands. slight improvement in mental status SKIN: rash on face, likely contact dermatitis from trach mask, no lesions noted Laboratory Results - last 24 hr 04/06/19 04/06/19 04/06/19 16:26 17:56 20:43 WBC 12.0 H RBC 2.76 L Hgb 7.8 L Hct 24.0 L MCV 86.7 MCH 28.2 MCHC 32.6 RDW 23.5 H Plt Count 546 H MPV 7.6 Absolute Neuts (auto) 10.0 H Neutrophils % 82.9 H Lymphocytes % 8.5 D Monocytes % 6.9 Eosinophils % 1.2 Basophils % 0.5 Nucleated RBC % 0 Anticoagulation Therapy Puncture Site ABG pH ABG pCO2 at Pt Temp ABG pO2 at Pt Temp ABG HCO3 ABG O2 Sat (Measured) ABG O2 Content ABG Base Excess Atul Test O2 Delivery Device Oxygen Flow Rate Vent Mode Vent Rate Mechanical Rate PEEP Pressure Support Vent Sodium Potassium Chloride Carbon Dioxide Anion Gap BUN Creatinine Est GFR (CKD-EPI)AfAm Est GFR (CKD-EPI)NonAf POC Glucometer 147 158 Random Glucose Calcium Phosphorus Magnesium Total Bilirubin AST ALT Alkaline Phosphatase Total Protein Albumin 04/06/19 04/07/19 04/07/19 21:15 00:10 01:09 WBC RBC Hgb Hct MCV MCH MCHC RDW Plt Count MPV Absolute Neuts (auto) Neutrophils % Lymphocytes % Monocytes % Eosinophils % Basophils % Nucleated RBC % Anticoagulation Therapy No Result Required. Puncture Site Right radial ABG pH 7.48 H ABG pCO2 at Pt Temp 37.6 ABG pO2 at Pt Temp 141 H ABG HCO3 27.5 H ABG O2 Sat (Measured) 99.5 H ABG O2 Content 10.8 ABG Base Excess 4.1 H Atul Test Positive O2 Delivery Device No Result Required. Oxygen Flow Rate No Result Required. Vent Mode No Result Required. Vent Rate No Result Required. Mechanical Rate No Result Required. PEEP 5.0 Pressure Support Vent No Result Required. Sodium Potassium Chloride Carbon Dioxide Anion Gap BUN Creatinine Est GFR (CKD-EPI)AfAm Est GFR (CKD-EPI)NonAf POC Glucometer 70 121 Random Glucose Calcium Phosphorus Magnesium Total Bilirubin AST ALT Alkaline Phosphatase Total Protein Albumin 04/07/19 04/07/19 04/07/19 05:26 05:40 05:40 WBC 10.2 H RBC 2.78 L Hgb 7.9 L Hct 23.9 L MCV 86.0 MCH 28.5 MCHC 33.1 RDW 23.6 H Plt Count 462 H MPV 8.5 D Absolute Neuts (auto) 7.8 Neutrophils % 77.1 Lymphocytes % 11.5 D Monocytes % 8.7 Eosinophils % 2.2 D Basophils % 0.5 Nucleated RBC % 0 Anticoagulation Therapy Puncture Site ABG pH ABG pCO2 at Pt Temp ABG pO2 at Pt Temp ABG HCO3 ABG O2 Sat (Measured) ABG O2 Content ABG Base Excess Atul Test O2 Delivery Device Oxygen Flow Rate Vent Mode Vent Rate Mechanical Rate PEEP Pressure Support Vent Sodium 141 Potassium 3.7 Chloride 104 Carbon Dioxide 30 Anion Gap 7 L BUN 7.1 Creatinine 0.4 L Est GFR (CKD-EPI)AfAm 141.75 Est GFR (CKD-EPI)NonAf 122.30 POC Glucometer 144 Random Glucose 144 H Calcium 8.0 L Phosphorus 2.0 L Magnesium 1.5 L Total Bilirubin 0.2 AST 17 ALT 12 L Alkaline Phosphatase 167 H Total Protein 5.4 L Albumin 1.6 L 04/07/19 04/07/19 04/07/19 09:21 10:12 13:12 WBC RBC Hgb Hct MCV MCH MCHC RDW Plt Count MPV Absolute Neuts (auto) Neutrophils % Lymphocytes % Monocytes % Eosinophils % Basophils % Nucleated RBC % Anticoagulation Therapy No Result Required. Puncture Site Left radial ABG pH 7.44 ABG pCO2 at Pt Temp 40.8 ABG pO2 at Pt Temp 152 H ABG HCO3 27.3 H ABG O2 Sat (Measured) 99.4 H ABG O2 Content 11.9 ABG Base Excess 3.4 H Atul Test Positive O2 Delivery Device Mech vent Oxygen Flow Rate Yes Vent Mode A/c Vent Rate 16 Mechanical Rate Yes PEEP 5.0 Pressure Support Vent 350 Sodium Potassium Chloride Carbon Dioxide Anion Gap BUN Creatinine Est GFR (CKD-EPI)AfAm Est GFR (CKD-EPI)NonAf POC Glucometer 332 354 Random Glucose Calcium Phosphorus Magnesium Total Bilirubin AST ALT Alkaline Phosphatase Total Protein Albumin Active Medications Generic Name Dose Route Start Last Admin Trade Name Freq PRN Reason Stop Dose Admin Amino Acids 30 ml 03/26/19 15:30 04/07/19 10:36 Prosource No Carb Liquid Pkt PO 30 ml DAILY [facility] Administration Chlorhexidine Gluconate 15 ml 03/29/19 10:00 04/07/19 10:36 Peridex - MM 15 ml BID [facility] Administration Dextrose 4 gm 03/28/19 23:06 Glucose Tablet - PO PRN PRN HYPOGLYCEMIA Enoxaparin Sodium 80 mg 04/01/19 11:15 04/05/19 09:46 Lovenox - SQ 80 mg DAILY [facility] Administration Fentanyl 500 mcg/ Dextrose 100 mls @ 10 mls/hr 04/01/19 12:00 04/07/19 12:00 IVPB Not Given TITR [facility] 50 MCG/HR Propofol 1,000,000 mcg in 100 mls @ 1.287 mls/hr 04/01/19 12:00 04/07/19 12: 00 Diprivan - IVPB Not Given TITR [facility] Protocol 5 MCG/KG/MIN Midazolam HCl 100 mg in 100 mls @ 1 mls/hr 04/01/19 20:00 04/06/19 10:15 Midazolam 100mg/100ml-0.9%Nacl IVPB 0 mg/hr TITR [facility] 0 mls/hr Titration Protocol 1 MG/HR Meropenem 500 mg/ Dextrose 100 mls @ 200 mls/hr 04/06/19 02:00 04/07/19 10:36 IVPB 200 mls/hr Q8H-IV [facility] Administration Dextrose/Lactated Ringer's 1,000 mls @ 75 mls/hr 04/05/19 10:30 04/07/19 12: 31 D5-Lr - IV 75 mls/hr ASDIR [facility] Administration Insulin Human Regular 100 100 mls @ 5.38 mls/hr 04/05/19 10:30 04/07/19 10:30 units/ Sodium Chloride IVPB Not Given TITR [facility] Protocol 0.1 UNITS/KG/HR Insulin Aspart 1 vial 04/06/19 13:16 04/07/19 13:16 Novolog Vial Sliding Scale - SQ 6 units Q4H [facility] Administration Protocol Ondansetron HCl 4 mg 03/11/19 20:31 03/14/19 05:07 Zofran Injection IVPUSH 4 mg Q6H PRN Administration NAUSEA AND/OR VOMITING Pantoprazole Sodium 40 mg 03/30/19 10:00 04/07/19 09:18 Protonix Iv IVPUSH 40 mg BID [facility] Administration Vancomycin HCl 125 mg 03/15/19 18:00 04/07/19 12:30 Vancomycin Oral Solution PO 125 mg Q6HPO [facility] Administration ASSESSMENT/PLAN: This is a 48F PMH IDDM, PE on xarelto, frequent DKA, HTN, HLD, CVA w/ left sided weakness, recent hospitalization at [facility] September 2018 admitted to ICU for SBO. Developed pneumoperitoneum s/p ex-lap. pt was extubated and required reintubation 2/2 respiratory failure Neuro : -sedated -will turn off sedation to eval mental status - Tylenol for pain/fever ctrl - dilaudid 1 mg q4h PRN for pain control Cardio : hx of transient a-fib with RVR -tachycardic - No longer hypotensive - Maintain MAP >65. currently not on pressors - central line in place ([place] 04/01) - will try for peripheral access Respiratory: Acute respiratory failure -s/p trach and bronchoscopy. propofol and rocuronium were used during procedure. lovenox held for procedure, pt was NPO - tube feeds back on today - Hydrocortisone cream for her facial rash around where trach mask was. GI : Crohn's flair likely, pneumoperitoneum s/p ex-lap - GI recs appreciated continuing w/ C diff management -CT abdomen and pelvis with contrast via NG tube and IV contrast negative for a fluid collection/other cause of infection. - tube feeds pivot to 50cc/hr, 30cc/hr free water. - PEG will be difficult to place given wound vac position per GI, spoke with IR regarding them placing it and they will let us know. ID: C diff, + sputum cx - c/w vanco day 10 and merrem - CT abd pelvis negative for abscess -afebrile for 24 hrs -sputum cx: gram neg lactose fermenting bacteria Endocrine: DKA - off insulin drip, levemir 6 units stat and daily, novolog q4h on D5LR. -add D5NS whenever tube feed is on hold. F/E/N - Lytes in AM, repleted Mag and Phos - Monitor I/Os - Monitor UrO, Cr PPx: SCDs , restart lovenox Dispo: continue ICU monitoring. Pt is being transferred to and then LTAC. Visit type - Emergency Visit Emergency Visit: Yes ED Registration Date: 03/09/19 Care time: The patient presented to the Emergency Department on the above date and was hospitalized for further evaluation of their emergent condition. - New Patient This patient is new to me today: No - Critical Care Critical Care patient: Yes Total Critical Care Time (in minutes): 35 Critical Care Statement: The care of this patient involved high complexity decision making to prevent further life threatening deterioration of the patient 's condition and/or to evaluate & treat vital organ system(s) failure or risk of failure. - Discharge Referral Referred to [facility] No ATTENDING PHYSICIAN STATEMENT I saw and evaluated the patient. I reviewed the resident's note and discussed the case with the resident. I agree with the resident's findings and plan as documented. SUBJECTIVE: OBJECTIVE: ASSESSMENT AND PLAN:
--- NOTE | 2019-04-07 16:00 | PN ---
Progress Note (short form) - Note Progress Note: hold feeds after midnight (NPO) and holding lovenox as pt will be re-evaluated for PEG from IR in am.
[2019-04-07] MEDS ORDERED: INSULIN (NOVOLOG) ASPART 100 UNITS/ML 10ML VIAL ONE (20:52)
[2019-04-07] MEDS ORDERED: DEXTROSE 4 GM TAB.CHEW PO PRN (21:25)
[2019-04-07] MEDS ORDERED: INSULIN REGULAR 100 UNITS in SODIUM CHLORIDE 99 ML IVPB SCH (21:25)
[2019-04-07] MEDS ORDERED: ONDANSETRON 4 MG/2 ML VIAL IVPUSH PRN (21:25)
[2019-04-08] MEDS: DEXTROSE 5%-LACTATED RINGERS 1,000 ML IV SCH ×3 (00:14→21:51)
[2019-04-08] MEDS: CHLORHEXIDINE GLUCONATE 0.12% 15ML CUP MM SCH ×3 (00:18→21:53)
[2019-04-08] MEDS: PANTOPRAZOLE SODIUM 40 MG VIAL IVPUSH SCH ×3 (00:24→21:53)
[2019-04-08] MEDS: INSULIN SLIDING SCALE (NOVOLOG) 1 VIAL SQ SCH ×7 (00:27→22:02)
[2019-04-08] MEDS: NYSTATIN 100000 UNIT/GM TOPICAL OINTMENT 15 GM TUBE TP SCH ×3 (00:27→21:53)
[2019-04-08] MEDS: VANCOMYCIN 250 MG/5 ML ORAL SOLUTION PO SCH ×4 (01:19→21:39)
[2019-04-08] MEDS: MEROPENEM 500 MG in DEXTROSE 5%-WATER 100 ML IVPB SCH ×3 (02:45→21:39)
[2019-04-08 06:53] LABS: ARTERIAL BLD GAS O2 SATURATION 99.7 % (95-98); ARTERIAL BLOOD GAS BASE EXCESS 0.3 meq/l (-2-2); ARTERIAL BLOOD GAS PCO2 31.3 mmHg (35-45); ARTERIAL BLOOD GAS PO2 176 mmHg (80-100); ARTERIAL BLOOD GAS pH 7.48 (7.35-7.45)
[2019-04-08 06:57] LABS: ALLENS TEST POSITIVE
[2019-04-08] MEDS ORDERED: INSULIN (NOVOLOG) ASPART 100 UNITS/ML 10ML VIAL ONE (08:45)
[2019-04-08 08:53] LABS: BASO % 0.3 % (0-2.0); EOS % 0.4 % (0-4.5); HEMATOCRIT 25.1 % (32.4-45.2); HEMOGLOBIN 8.4 GM/dL (10.7-15.3); LYMPH % 17.2 % (8-40); MCH 28.7 pg (25.7-33.7); MCHC 33.5 g/dl (32.0-36.0); MEAN CELL VOLUME 85.7 fl (80-96); MONO % 8.3 % (3.8-10.2); NEUT % 73.8 % (42.8-82.8); PLATELET COUNT 648 K/MM3 (134-434); RBC 2.93 M/mm3 (3.60-5.2); RDW 23.6 % (11.6-15.6); WHITE BLOOD COUNT 9.5 K/mm3 (4.0-10.0)
[2019-04-08 09:15] LABS: BLOOD UREA NITROGEN 7.4 mg/dL (7-18); CALCIUM 8.3 mg/dL (8.5-10.1); CREATININE 0.5 mg/dL (0.55-1.3); MAGNESIUM 1.7 mg/dL (1.8-2.4); PHOSPHOROUS 2.2 mg/dL (2.5-4.9); POTASSIUM 3.2 mmol/L (3.5-5.1)
--- NOTE | 2019-04-08 09:36 | PN ---
Progress Note (short form) - Note Progress Note: Awake On Tube feding Intubated Off sedation now Vital Signs Period Temp Pulse Resp BP Sys/Rapp Pulse Ox Last 24 Hr 97.5 F-98.8 F 101-117 19-30 130-156/64-85 100-100 PE: Intubated, s/P tracheostomy, lethargic Neck: supple Lungs: CTA CVS: s1S2 Abd: Benign Neuro: intubated CMP Sodium 139 mmol/L (136-145) 04/08/19 08:30 Potassium 3.2 mmol/L (3.5-5.1) L 04/08/19 08:30 Chloride 103 mmol/L (98-107) 04/08/19 08:30 Carbon Dioxide 22 mmol/L (21-32) 04/08/19 08:30 Anion Gap 14 MMOL/L (8-16) 04/08/19 08:30 BUN 7.4 mg/dL (7-18) 04/08/19 08:30 Creatinine 0.5 mg/dL (0.55-1.3) L 04/08/19 08:30 Est GFR (CKD-EPI)AfAm 131.72 04/08/19 08:30 Est GFR (CKD-EPI)NonAf 113.65 04/08/19 08:30 POC Glucometer 390 UNITS (80-120) 04/08/19 06:31 Random Glucose 309 mg/dL (74-106) H 04/08/19 08:30 Hemoglobin A1c % 9.8 % (4.2-6.3) H 03/10/19 07:20 Lactic Acid 1.8 mmol/L (0.4-2.0) 04/02/19 01:00 Calcium 8.3 mg/dL (8.5-10.1) L 04/08/19 08:30 Phosphorus 2.2 mg/dL (2.5-4.9) L 04/08/19 08:30 Magnesium 1.7 mg/dL (1.8-2.4) L 04/08/19 08:30 Iron 125 ug/dL (50-175) 03/20/19 17:00 TIBC 124 ug/dL (250-450) L 03/20/19 17:00 Iron Saturation 100 % (17.5-39) H 03/20/19 17:00 Unsaturated IBC -1 ug/dL (200-275) L 03/20/19 17:00 Ferritin 220.2 ng/ml (8-388) 03/20/19 17:00 Total Bilirubin 0.2 mg/dL (0.2-1) 04/07/19 05:40 AST 17 U/L (15-37) 04/07/19 05:40 ALT 12 U/L (13-61) L 04/07/19 05:40 Alkaline Phosphatase 167 U/L (45-117) H 04/07/19 05:40 Creatine Kinase 109 U/L (26-192) 03/19/19 15:40 Troponin I 1.94 ng/ml (0.00-0.05) H* 03/19/19 23:15 C-Reactive Protein 43.2 MG/DL (0.00-0.3) H 03/11/19 05:10 Total Protein 5.4 g/dl (6.4-8.2) L 04/07/19 05:40 Albumin 1.6 g/dl (3.4-5.0) L 04/07/19 05:40 Prealbumin 7.0 mg/dl (20-40) L 03/19/19 05:00 Lipase 58 U/L (73-393) L 03/09/19 17:55 Beta-Hydroxybutyrate 0.9 mg/dL (0.2-2.8) 03/22/19 05:10 Current Medications Generic Name Dose Route Start Last Admin Trade Name Freq PRN Reason Stop Dose Admin Amino Acids 30 ml 04/08/19 10:00 Prosource No Carb Liquid Pkt PO DAILY [facility] Chlorhexidine Gluconate 15 ml 04/07/19 22:00 04/08/19 00:18 Peridex - MM 15 ml BID [facility] Administration Dextrose 4 gm 04/07/19 21:25 Glucose Tablet - PO PRN PRN HYPOGLYCEMIA Enoxaparin Sodium 80 mg 04/08/19 10:00 Lovenox - SQ DAILY [facility] Dextrose/Lactated Ringer's 1,000 mls @ 75 mls/hr 04/07/19 21:25 04/08/19 00: 14 D5-Lr - IV 75 mls/hr ASDIR [facility] Administration Meropenem 500 mg/ Dextrose 100 mls @ 200 mls/hr 04/08/19 02:00 04/08/19 02:45 IVPB 200 mls/hr Q8H-IV [facility] Administration Insulin Human Regular 100 100 mls @ 5.38 mls/hr 04/07/19 21:25 units/ Sodium Chloride IVPB TITR [facility] Protocol 0.1 UNITS/KG/HR Insulin Aspart 1 vial 04/08/19 01:16 04/08/19 06:38 Novolog Vial Sliding Scale - SQ 6 units Q4H [facility] Administration Protocol Nystatin 1 applic 04/07/19 22:00 04/08/19 00:27 Mycostatin Ointment - TP 1 applic BID [facility] Administration Ondansetron HCl 4 mg 04/07/19 21:25 Zofran Injection IVPUSH Q6H PRN NAUSEA AND/OR VOMITING Pantoprazole Sodium 40 mg 04/07/19 22:00 04/08/19 00:24 Protonix Iv IVPUSH 40 mg BID [facility] Administration Vancomycin HCl 125 mg 04/08/19 00:00 04/08/19 06:36 Vancomycin Oral Solution PO Not Given Q6HPO [facility] AP: T1DM with acidosis: Acidosis resolved S/P Tracheostomy s/p Cardiopulmonary Arrest R/o Anoxic Brain Injury Acute Hypoxic Respiratory Failure Perforated Small Bowel s/p ex-lap/RAYSHAWN/segmental SB resection Crohn's Disease Peritonitis +C diff Colitis Septic Shock/Lactic Acidosis h/o PE HTN h/o CVA Pt s/p Tracheostomy Iv hydration as necessary, on D5 ringer's lactate, continue same until tube feeding is started and tolerated Add D5NS whenever tube feeding is on hold for any reason Off Insulin drip BGM Q 6 hour Levemir 10 units daily Novolog coverage Q 6 hrs Adjust Insulin dose as necessary Replace electrolytes as necessary
[2019-04-08] MEDS ORDERED: ENOXAPARIN NA (PORCINE) 80 MG/0.8 ML DISP.SYRIN SQ SCH (10:00)
[2019-04-08] MEDS ORDERED: AMINO ACIDS/PROTEIN HYDROLYS 30 ML LIQUID.PKT PO SCH (10:00)
--- NOTE | 2019-04-08 10:49 | PN ---
Progress Note (short form) - Note Progress Note: PULMONARY Vented, awake but not following commands. Episodes of tachypnea. Vital Signs Period Temp Pulse Resp BP Sys/Rapp Pulse Ox Last 24 Hr 97.5 F-98.8 F 101-117 19-30 130-145/64-85 100-100 Gen: vented, awake Heart: RRR Lung: decreased breath sounds at the bases Abd: soft, nontender Ext: + edema CBC, BMP 04/08/19 08:30 04/08/19 08:30 Active Medications Amino Acids (Prosource No Carb Liquid Pkt) 30 ml PO DAILY [facility] Chlorhexidine Gluconate (Peridex -) 15 ml MM BID [facility] Last Admin: 04/08/19 00:18 Dose: 15 ml Dextrose (Glucose Tablet -) 4 gm PO PRN PRN PRN Reason: HYPOGLYCEMIA Enoxaparin Sodium (Lovenox -) 80 mg SQ DAILY [facility] Dextrose/Lactated Ringer's (D5-Lr -) 1,000 mls @ 75 mls/hr IV ASDIR [facility] Last Admin: 04/08/19 00:14 Dose: 75 mls/hr Meropenem 500 mg/ Dextrose 100 mls @ 200 mls/hr IVPB Q8H-IV [facility] Last Admin: 04/08/19 10:34 Dose: 200 mls/hr Insulin Human Regular 100 (units/ Sodium Chloride) 100 mls @ 5.38 mls/hr IVPB TITR [facility]; Protocol Insulin Aspart (Novolog Vial Sliding Scale -) 1 vial SQ Q4H [facility]; Protocol Last Admin: 04/08/19 06:38 Dose: 6 units Nystatin (Mycostatin Ointment -) 1 applic TP BID [facility] Last Admin: 04/08/19 00:27 Dose: 1 applic Ondansetron HCl (Zofran Injection) 4 mg IVPUSH Q6H PRN PRN Reason: NAUSEA AND/OR VOMITING Pantoprazole Sodium (Protonix Iv) 40 mg IVPUSH BID [facility] Last Admin: 04/08/19 00:24 Dose: 40 mg Vancomycin HCl (Vancomycin Oral Solution) 125 mg PO Q6HPO [facility] Last Admin: 04/08/19 06:36 Dose: Not Given A/P s/p Cardiopulmonary Arrest Suspect Anoxic Brain Injury Acute Hypoxic Respiratory Failure s/p Tracheostomy Perforated Small Bowel s/p ex-lap/RAYSHAWN/segmental SB resection Crohn's Disease Peritonitis +C diff Colitis Septic Shock resolved Lactic Acidosis resolved Volume Overload h/o PE HTN DM Hyperlipidemia Anemia Thrombocytopenia h/o CVA - antibiotics per ID - lasix as needed - monitor urine output, creatinine - replete lytes - off pressors, maintain MAP > 65 - continue anticoagulation - minimize sedation to assess mental status - enteral feeds, will need PEG placement - DVT/GI prophylaxis
[2019-04-08] MEDS ORDERED: INSULIN (LEVEMIR) 100 UNITS/ML UNITS SQ ONE ×2 (11:51→12:44)
[2019-04-08] MEDS ORDERED: ALBUTEROL SO4 2.5/IPRATROPIUM 0.5 INH SOL 3 ML VIAL.NEB. NEB PRN ×2 (11:53→18:07)
[2019-04-08] MEDS ORDERED: ACETAMINOPHEN 1000 MG/100 ML VIAL (NON FORMULARY) IVPB ONE (11:57)
[2019-04-08] MEDS ORDERED: LORazepam 2 MG/ML SDV VIAL IM PRN (12:33)
[2019-04-08] MEDS ORDERED: LORazepam 2 MG/ML SDV VIAL IVPUSH ONE (12:33)
[2019-04-08] MEDS ORDERED: MORPHINE SULFATE 2 MG/ML VIAL IM PRN ×2 (12:38→18:07)
--- NOTE | 2019-04-08 12:48 | PN ---
Physical Exam: SUBJECTIVE: Patient seen and examined on , to be transferred to icu. OBJECTIVE: Patient is a 48 year old female admitted for septic shock 2/ to bowel perforation. she is s/p exp lap with resection of ilial perforation on 03/12. In the past she has had multiple admission for DKA. This hospitalization complicated with multiple episodes of respiratory failure, bacteremia, c-diff and DKA. she also had an episode of pulseless activity on 03/19/19 and was intubated after CPR performed. She is s/p trach collar today and was supposed to get peg tube placed today, Peg tube placed on hold until abdominal wound healed per IR. Patient was a rapid response today and now transferred to the icu after becoming diaphorectic , tachycardic and tachypnic on trach collar. stat labs ordered. Vital Signs Period Temp Pulse Resp BP Sys/Rapp Pulse Ox Last 24 Hr 97.5 F-100.9 F 103-128 19-38 134-149/64-85 100-100 GENERAL: anasarca, trach collar, tachypnea. diaphorectic. HEAD: Normal with no signs of trauma. ENT: Ears normal, nares patent, oropharynx clear without exudates, moist mucous membranes. NECK: Trachea midline, full range of motion, supple. LUNGS: diminished HEART: tachycardia 120-140s ABDOMEN: wound vac EXTREMITIES: anasacra NEUROLOGICAL: eyes open, non responsive Laboratory Results - last 24 hr 04/07/19 04/07/19 04/08/19 13:12 16:54 00:01 WBC RBC Hgb Hct MCV MCH MCHC RDW Plt Count MPV Absolute Neuts (auto) Neutrophils % Lymphocytes % Monocytes % Eosinophils % Basophils % Nucleated RBC % Anticoagulation Therapy Puncture Site ABG pH ABG pCO2 at Pt Temp ABG pO2 at Pt Temp ABG HCO3 ABG O2 Sat (Measured) ABG O2 Content ABG Base Excess Atul Test O2 Delivery Device Oxygen Flow Rate Vent Mode Vent Rate Mechanical Rate PEEP Pressure Support Vent Sodium Potassium Chloride Carbon Dioxide Anion Gap BUN Creatinine Est GFR (CKD-EPI)AfAm Est GFR (CKD-EPI)NonAf POC Glucometer 354 373 374 Random Glucose Calcium Phosphorus Magnesium 04/08/19 04/08/19 04/08/19 06:31 06:35 08:30 WBC 9.5 RBC 2.93 L Hgb 8.4 L Hct 25.1 L MCV 85.7 MCH 28.7 MCHC 33.5 RDW 23.6 H Plt Count 648 H D MPV 7.0 L D Absolute Neuts (auto) 7.0 Neutrophils % 73.8 Lymphocytes % 17.2 D Monocytes % 8.3 Eosinophils % 0.4 D Basophils % 0.3 Nucleated RBC % 0 Anticoagulation Therapy No Result Required. Puncture Site Right brachial ABG pH 7.48 H ABG pCO2 at Pt Temp 31.3 L ABG pO2 at Pt Temp 176 H ABG HCO3 23.1 ABG O2 Sat (Measured) 99.7 H ABG O2 Content 12.1 ABG Base Excess 0.3 Atul Test Positive O2 Delivery Device Mech vent Oxygen Flow Rate 40% Vent Mode A/c Vent Rate 16 Mechanical Rate Yes PEEP 15.0 Pressure Support Vent 350 Sodium Potassium Chloride Carbon Dioxide Anion Gap BUN Creatinine Est GFR (CKD-EPI)AfAm Est GFR (CKD-EPI)NonAf POC Glucometer 390 Random Glucose Calcium Phosphorus Magnesium 04/08/19 04/08/19 08:30 10:44 WBC RBC Hgb Hct MCV MCH MCHC RDW Plt Count MPV Absolute Neuts (auto) Neutrophils % Lymphocytes % Monocytes % Eosinophils % Basophils % Nucleated RBC % Anticoagulation Therapy Puncture Site ABG pH ABG pCO2 at Pt Temp ABG pO2 at Pt Temp ABG HCO3 ABG O2 Sat (Measured) ABG O2 Content ABG Base Excess Atul Test O2 Delivery Device Oxygen Flow Rate Vent Mode Vent Rate Mechanical Rate PEEP Pressure Support Vent Sodium 139 Potassium 3.2 L Chloride 103 Carbon Dioxide 22 Anion Gap 14 BUN 7.4 Creatinine 0.5 L Est GFR (CKD-EPI)AfAm 131.72 Est GFR (CKD-EPI)NonAf 113.65 POC Glucometer 492 Random Glucose 309 H Calcium 8.3 L Phosphorus 2.2 L Magnesium 1.7 L Active Medications Generic Name Dose Route Start Last Admin Trade Name Freq PRN Reason Stop Dose Admin Albuterol/Ipratropium 1 amp 04/08/19 11:53 Duoneb - NEB Q6H PRN SHORTNESS OF BREATH Amino Acids 30 ml 04/08/19 10:00 04/08/19 10:49 Prosource No Carb Liquid Pkt PO Not Given DAILY [facility] Chlorhexidine Gluconate 15 ml 04/07/19 22:00 04/08/19 00:18 Peridex - MM 15 ml BID [facility] Administration Dextrose 4 gm 04/07/19 21:25 Glucose Tablet - PO PRN PRN HYPOGLYCEMIA Enoxaparin Sodium 80 mg 04/08/19 10:00 Lovenox - SQ DAILY [facility] Dextrose/Lactated Ringer's 1,000 mls @ 75 mls/hr 04/07/19 21:25 04/08/19 00: 14 D5-Lr - IV 75 mls/hr ASDIR [facility] Administration Meropenem 500 mg/ Dextrose 100 mls @ 200 mls/hr 04/08/19 02:00 04/08/19 10:34 IVPB 200 mls/hr Q8H-IV [facility] Administration Potassium Chloride 10 meq in 100 mls @ 100 mls/hr 04/08/19 12:00 Potassium Chloride 10 Meq Premix Ivpb - IVPB 04/08/19 13:59 Q60M [facility] Insulin Aspart 1 vial 04/08/19 01:16 04/08/19 11:31 Novolog Vial Sliding Scale - SQ 7 units Q4H [facility] Administration Protocol Insulin Detemir 6 units 04/08/19 12:44 Levemir Vial SQ 04/08/19 12:45 ONCE ONE Magnesium Sulfate 2 gm 04/08/19 12:43 Magnesium Sulfate IVPB 04/08/19 12:44 ONCE ONE Morphine Sulfate 2 mg 04/08/19 12:38 Morphine Sulfate IM Q6H PRN PAIN LEVEL 7 - 10 Nystatin 1 applic 04/07/19 22:00 04/08/19 10:48 Mycostatin Ointment - TP 1 applic BID [facility] Administration Ondansetron HCl 4 mg 04/07/19 21:25 Zofran Injection IVPUSH Q6H PRN NAUSEA AND/OR VOMITING Pantoprazole Sodium 40 mg 04/07/19 22:00 04/08/19 00:24 Protonix Iv IVPUSH 40 mg BID [facility] Administration Vancomycin HCl 125 mg 04/08/19 00:00 04/08/19 06:36 Vancomycin Oral Solution PO Not Given Q6HPO [facility] ASSESSMENT/PLAN: Problem List - Problems (1) DKA (diabetic ketoacidoses) Assessment/Plan: insulin drip d/cd, now on long short acting insulin q6, on d5/lr @ 75cc/hr with close monitoring of BGMs. levemir 6 given Code(s): E13.10 - OTH DIABETES MELLITUS WITH KETOACIDOSIS WITHOUT COMA Qualifiers: Diabetes mellitus type: type 1 Diabetes mellitus complication detail: without coma Qualified Code(s): E10.10 - Type 1 diabetes mellitus with ketoacidosis without coma (2) Acute respiratory failure Assessment/Plan: patient is s /p trachestomy. patient to be transferred back to icu for respiratory failure requiring closer acute monitoring. appreciate ICU level of care Code(s): J96.00 - ACUTE RESPIRATORY FAILURE, UNSP W HYPOXIA OR HYPERCAPNIA Qualifiers: Respiratory failure complication: unspecified whether with hypoxia or hypercapnia Qualified Code(s): J96.00 - Acute respiratory failure, unspecified whether with hypoxia or hypercapnia (3) Perforated abdominal viscus Assessment/Plan: s/p Ex-lap/RAYSHAWN/partial SB and omental resection with anastomosis/washout on 03/12 wound dihisecence noted at distal portion, vac in place dressing changes as per surgery on meropenem per ID Code(s): [id number] - (4) Abdominal pain Assessment/Plan: Patient is/p ex-lap/RAYSHAWN/partial SB and omental resection with anastomosis/ washout appreciate surgical and ID consultation Code(s): R10.9 - UNSPECIFIED ABDOMINAL PAIN Qualifiers: Abdominal location: generalized Qualified Code(s): R10.84 - Generalized abdominal pain (5) C. difficile diarrhea Assessment/Plan: Code(s): A04.72 - ENTEROCOLITIS D/T CLOSTRIDIUM DIFFICILE, NOT SPCF RECUR (6) Diabetes Assessment/Plan: brittle diabetic. endocrinology following. Code(s): E11.9 - TYPE 2 DIABETES MELLITUS WITHOUT COMPLICATIONS (7) ESBL (extended spectrum beta-lactamase) producing bacteria infection Assessment/Plan: esbl in wound culture. maintain contact precautions. Code(s): A49.9 - BACTERIAL INFECTION, UNSPECIFIED; Z16.12 - EXTENDED SPECTRUM BETA LACTAMASE (ESBL) RESISTANCE (8) HTN (hypertension) Assessment/Plan: ICU monitoring with frequent checks Code(s): I10 - ESSENTIAL (PRIMARY) HYPERTENSION (9) Left-sided weakness Assessment/Plan: chronic left sided weakness. now with edema of both arms and anasarca Code(s): R53.1 - WEAKNESS (10) Acute Crohn's disease Assessment/Plan: lysis of adhesions, segmental resection of small intestinal perforation with side-side stapled anastomosis, abdominal washout, resection of portion of omentum. GI following. Code(s): K50.90 - CROHN'S DISEASE, UNSPECIFIED, WITHOUT COMPLICATIONS (11) Anemia Assessment/Plan: s/p 2 units of prbc. monitor cbc daily Code(s): D64.9 - ANEMIA, UNSPECIFIED (12) Respiratory failure Code(s): J96.90 - RESPIRATORY FAILURE, UNSP, UNSP W HYPOXIA OR HYPERCAPNIA (13) Prophylactic measure Assessment/Plan: NPO monitor electrolytes, ngt feeds DVT on lovenox full dose Dispo requires ICU care full code Code(s): Z29.9 - ENCOUNTER FOR PROPHYLACTIC MEASURES, UNSPECIFIED Visit type - Emergency Visit Emergency Visit: Yes ED Registration Date: 03/09/19 Care time: The patient presented to the Emergency Department on the above date and was hospitalized for further evaluation of their emergent condition. - New Patient This patient is new to me today: No - Critical Care Critical Care patient: Yes Total Critical Care Time (in minutes): 45 Critical Care Statement: The care of this patient involved high complexity decision making to prevent further life threatening deterioration of the patient 's condition and/or to evaluate & treat vital organ system(s) failure or risk of failure. - Discharge Referral Referred to [facility] No
[2019-04-08] MEDS ORDERED: MAGNESIUM SULF 50% (8.12 MEQ/2 ML-1 GM VIAL) IVPB ONE (13:15)
[2019-04-08] MEDS ORDERED: INSULIN (NOVOLOG) ASPART 100 UNITS/ML 10ML VIAL SQ ONE (13:24)
--- NOTE | 2019-04-08 14:04 | RAPID ---
<Pratima Johnson - Last Filed: 04/09/19 16:15> Physical Examination Vital Signs: Vital Signs Temperature 100.9 F H 04/08/19 10:00 Pulse Rate 128 H 04/08/19 10:00 Respiratory Rate 38 H 04/08/19 11:57 Blood Pressure 149/71 04/08/19 10:00 O2 Sat by Pulse Oximetry (%) 100 04/08/19 08:01 Labs: CBC, BMP 04/08/19 08:30 04/08/19 11:30 Rapid Response - Rapid Response Assessment: S Rapid response was called at 1343. [facility] team quickly responded. Upon arrival , nursing staff was around pt's bedside. It was reported by staff that the patient tachypneic and tachycardic in distress. Pt's baseline is non-verbal today. O 144/80 HR 139 100% RR 40 BG 296 awake, non-verbal, not responding to auditory cues tachycardic, regular rhythm lungs CTAB perez in place moving all 4 extremities EKG sinus rhythm HR 135, no acute changes, QTc 528 A/P #acute respiratory distress -morphine 2mg -CBC, CMP, LA -ABG -UA, urine cx, blood cx -transfer to ICU <Mel Yepez - Last Filed: 04/09/19 16:51> Physical Examination Vital Signs: Labs: Rapid Response - Rapid Response Assessment: Discussed with primary team, Dr. Galicia, and ICU team. total critical care time spent at bedside 32 min.
[2019-04-08 14:08] LABS: ARTERIAL BLOOD GAS BASE EXCESS -3.9 meq/l (-2-2); ARTERIAL BLOOD GAS PCO2 33.6 mmHg (35-45); ARTERIAL BLOOD GAS PO2 153 mmHg (80-100); ARTERIAL BLOOD GAS pH 7.39 (7.35-7.45)
--- NOTE | 2019-04-08 14:14 | CONSULT ---
Consultation: REQUESTING PROVIDER: Dr Yepez CONSULT REQUEST: We have been asked to medically evaluate this patient for ( Acute respiratory distress). HISTORY OF PRESENT ILLNESS: Pt is a 48F PMH Type I IDDM, PE (on Lovenox), frequent admissions for DKA, HTN, HLD, C-Diff, CVA with left-sided weakness, recent hospitalization at [facility] September 2018, sepsis 2/2 bowel perforation s/p laparotomy, cardiac arrest with ROSC who was recently in [facility] ICU. Pt well known to ICU team. Rapid Response called thus afternoon as pt was observed to be tachypneic, tachycardic, and diaphoretic. REVIEW OF SYSTEMS: Pt unable to provide 2/2 mental status PHYSICAL EXAMINATION Vital Signs - 24 hr 04/07/19 04/07/19 04/07/19 16:00 16:15 18:00 Temperature 98.5 F 98.6 F Pulse Rate 112 H 117 H Respiratory 19 29 H 22 H Rate Blood Pressure 145/73 144/72 O2 Sat by Pulse Oximetry (%) 04/07/19 04/07/19 04/07/19 20:05 21:00 23:00 Temperature 97.5 F L Pulse Rate 103 H Respiratory 22 H 30 H Rate Blood Pressure 141/64 O2 Sat by Pulse 100 Oximetry (%) 04/08/19 04/08/19 04/08/19 00:15 02:00 04:53 Temperature 98.8 F Pulse Rate 103 H Respiratory 25 H 25 H 23 H Rate Blood Pressure 136/85 O2 Sat by Pulse Oximetry (%) 04/08/19 04/08/19 04/08/19 06:00 08:01 10:00 Temperature 97.6 F 100.9 F H Pulse Rate 105 H 105 H 128 H Respiratory 23 H 28 H 32 H Rate Blood Pressure 134/70 149/71 O2 Sat by Pulse 100 Oximetry (%) 04/08/19 11:57 Temperature Pulse Rate Respiratory 38 H Rate Blood Pressure O2 Sat by Pulse Oximetry (%) GENERAL: AD, Tachypneic, diaphoretic HEAD: Normal with no signs of trauma. EYES: EOMI Sclera Clear EARS, NOSE, THROAT: MMM NECK: Supple LUNGS: Decreased Breath sounds at bases HEART: Tachycardic, S1S2 ABDOMEN: Wound Vac, ND, No facial grimacing to palpation LOWER EXTREMITIES: SCDs, No CCE NEUROLOGICAL: Moves all extremities, unable to follow commands Laboratory Results - last 24 hr 04/07/19 04/08/19 04/08/19 16:54 00:01 06:31 WBC RBC Hgb Hct MCV MCH MCHC RDW Plt Count MPV Absolute Neuts (auto) Neutrophils % Lymphocytes % Monocytes % Eosinophils % Basophils % Nucleated RBC % Anticoagulation Therapy Puncture Site ABG pH ABG pCO2 at Pt Temp ABG pO2 at Pt Temp ABG HCO3 ABG O2 Sat (Measured) ABG O2 Content ABG Base Excess Atul Test O2 Delivery Device Oxygen Flow Rate Vent Mode Vent Rate Mechanical Rate PEEP Pressure Support Vent Sodium Potassium Chloride Carbon Dioxide Anion Gap BUN Creatinine Est GFR (CKD-EPI)AfAm Est GFR (CKD-EPI)NonAf POC Glucometer 373 374 390 Random Glucose Calcium Phosphorus Magnesium 04/08/19 04/08/19 04/08/19 06:35 08:30 08:30 WBC 9.5 RBC 2.93 L Hgb 8.4 L Hct 25.1 L MCV 85.7 MCH 28.7 MCHC 33.5 RDW 23.6 H Plt Count 648 H D MPV 7.0 L D Absolute Neuts (auto) 7.0 Neutrophils % 73.8 Lymphocytes % 17.2 D Monocytes % 8.3 Eosinophils % 0.4 D Basophils % 0.3 Nucleated RBC % 0 Anticoagulation Therapy No Result Required. Puncture Site Right brachial ABG pH 7.48 H ABG pCO2 at Pt Temp 31.3 L ABG pO2 at Pt Temp 176 H ABG HCO3 23.1 ABG O2 Sat (Measured) 99.7 H ABG O2 Content 12.1 ABG Base Excess 0.3 Atul Test Positive O2 Delivery Device Mech vent Oxygen Flow Rate 40% Vent Mode A/c Vent Rate 16 Mechanical Rate Yes PEEP 15.0 Pressure Support Vent 350 Sodium 139 Potassium 3.2 L Chloride 103 Carbon Dioxide 22 Anion Gap 14 BUN 7.4 Creatinine 0.5 L Est GFR (CKD-EPI)AfAm 131.72 Est GFR (CKD-EPI)NonAf 113.65 POC Glucometer Random Glucose 309 H Calcium 8.3 L Phosphorus 2.2 L Magnesium 1.7 L 04/08/19 04/08/19 10:44 11:30 WBC RBC Hgb Hct MCV MCH MCHC RDW Plt Count MPV Absolute Neuts (auto) Neutrophils % Lymphocytes % Monocytes % Eosinophils % Basophils % Nucleated RBC % Anticoagulation Therapy Puncture Site ABG pH ABG pCO2 at Pt Temp ABG pO2 at Pt Temp ABG HCO3 ABG O2 Sat (Measured) ABG O2 Content ABG Base Excess Atul Test O2 Delivery Device Oxygen Flow Rate Vent Mode Vent Rate Mechanical Rate PEEP Pressure Support Vent Sodium Potassium Chloride Carbon Dioxide Anion Gap BUN Creatinine Est GFR (CKD-EPI)AfAm Est GFR (CKD-EPI)NonAf POC Glucometer 492 Random Glucose 613 H* Calcium Phosphorus Magnesium Active Medications Generic Name Dose Route Start Last Admin Trade Name Freq PRN Reason Stop Dose Admin Albuterol/Ipratropium 1 amp 04/08/19 11:53 Duoneb - NEB Q6H PRN SHORTNESS OF BREATH Amino Acids 30 ml 04/08/19 10:00 04/08/19 10:49 Prosource No Carb Liquid Pkt PO Not Given DAILY [facility] Chlorhexidine Gluconate 15 ml 04/07/19 22:00 04/08/19 00:18 Peridex - MM 15 ml BID [facility] Administration Chlorhexidine Gluconate 1 applic 04/08/19 22:00 Hibiclens For Decolonization - TP HS [facility] Dextrose 4 gm 04/07/19 21:25 Glucose Tablet - PO PRN PRN HYPOGLYCEMIA Enoxaparin Sodium 80 mg 04/08/19 10:00 04/08/19 13:02 Lovenox - SQ 80 mg DAILY [facility] Administration Dextrose/Lactated Ringer's 1,000 mls @ 75 mls/hr 04/07/19 21:25 04/08/19 14: 04 D5-Lr - IV 75 mls/hr ASDIR [facility] Administration Meropenem 500 mg/ Dextrose 100 mls @ 200 mls/hr 04/08/19 02:00 04/08/19 10:34 IVPB 200 mls/hr Q8H-IV [facility] Administration Insulin Aspart 1 vial 04/08/19 01:16 04/08/19 11:31 Novolog Vial Sliding Scale - SQ 7 units Q4H [facility] Administration Protocol Morphine Sulfate 2 mg 04/08/19 12:38 04/08/19 13:58 Morphine Sulfate IM 2 mg Q6H PRN Administration PAIN LEVEL 7 - 10 Mupirocin 1 applic 04/08/19 22:00 Bactroban Ointment (For Decolonization) - NS 04/13/19 21:59 BID [facility] Nystatin 1 applic 04/07/19 22:00 04/08/19 10:48 Mycostatin Ointment - TP 1 applic BID [facility] Administration Ondansetron HCl 4 mg 04/07/19 21:25 Zofran Injection IVPUSH Q6H PRN NAUSEA AND/OR VOMITING Pantoprazole Sodium 40 mg 04/07/19 22:00 04/08/19 13:02 Protonix Iv IVPUSH 40 mg BID [facility] Administration Vancomycin HCl 125 mg 04/08/19 00:00 04/08/19 12:06 Vancomycin Oral Solution PO Not Given Q6HPO [facility] ASSESSMENT/PLAN: Pt is a 48F PMH Type I IDDM, PE (on Lovenox), frequent admissions for DKA, HTN, HLD, C-Diff, CVA with left-sided weakness, recent hospitalization at [facility] September 2018, sepsis 2/2 bowel perforation s/p laparotomy who was recently in [facility] ICU. Pt well known to ICU team. #Cardio : hx of transient a-fib with RVR -Tachycardic -EKG--Sinus tach, minor t wave changes v5-v6. Unchanged from EKG 03/29. QTc 528. -Maintain MAP > 65. currently not on pressors #Respiratory: Acute respiratory failure -s/p trach and bronchoscopy -Duonebs #GI : s/p ex lap for SBO w/ perforation -Currently with wound vac -Surgery on board #Endocrine: DKA - off insulin drip, novolog q4h on D5LR. # I.D- Possible Sepsis 2/2 Abdominal/Respiratory Source -Pt s/p bowel perforation s/p laparotomy -Rapid Response called on [address] [place] as pt visibly diaphoretic, tachypneic, and tachycardic -STAT CBC, BMP, Lactic Acid, Troponin, CXR, ABG, EKG, UA, urine cx, blood cx -Pt currently on Vancomycin and Merrem -ID on board -Pt w/ C-diff. Continue with PO Vanco per ID #FEN -D5/LR @ 75cc/hr -Monitor electrolytes -NPO #DVT ppx: -Lovenox Dispo: We will continue to follow the patient. Thank you for this consultative opportunity. Visit type - Emergency Visit Emergency Visit: Yes ED Registration Date: 03/09/19 Care time: The patient presented to the Emergency Department on the above date and was hospitalized for further evaluation of their emergent condition. - New Patient This patient is new to me today: No - Critical Care Critical Care patient: Yes Total Critical Care Time (in minutes): 35 Critical Care Statement: The care of this patient involved high complexity decision making to prevent further life threatening deterioration of the patient 's condition and/or to evaluate & treat vital organ system(s) failure or risk of failure.
--- NOTE | 2019-04-08 14:29 | EKG ---
Test Reason : Blood Pressure : / mmHG Vent. Rate : 135 BPM Atrial Rate : 135 BPM P-R Int : 098 ms QRS Dur : 086 ms QT Int : 352 ms P-R-T Axes : 076 085 015 degrees QTc Int : 528 ms POOR DATA QUALITY, INTERPRETATION MAY BE ADVERSELY AFFECTED SINUS TACHYCARDIA WITH SHORT TX T WAVE ABNORMALITY, CONSIDER INFERIOR ISCHEMIA ABNORMAL ECG WHEN COMPARED WITH ECG OF 29-MAR-2019 15:18, INVERTED T WAVES HAVE REPLACED NONSPECIFIC T WAVE ABNORMALITY IN INFERIOR LEADS Confirmed by CHEMA RICHEY MD ([id number]) on 04/08/2019 2:28:24 PM Referred By: DARRIN ALEJO Confirmed By:CHEMA RICHEY MD
[2019-04-08] MEDS ORDERED: MORPHINE SULFATE 2 MG/ML VIAL IVPUSH ONE (15:03)
--- NOTE | 2019-04-08 15:15 | PN ---
Progress Note, Physician History of Present Illness: rapid response patient txed to icu went into resp distress still weak - Current Medication List Current Medications: Active Medications Albuterol/Ipratropium (Duoneb -) 1 amp NEB Q6H PRN PRN Reason: SHORTNESS OF BREATH Amino Acids (Prosource No Carb Liquid Pkt) 30 ml PO DAILY [facility] Last Admin: 04/08/19 10:49 Dose: Not Given Chlorhexidine Gluconate (Peridex -) 15 ml MM BID [facility] Last Admin: 04/08/19 00:18 Dose: 15 ml Chlorhexidine Gluconate (Hibiclens For Decolonization -) 1 applic TP HS [facility] Dextrose (Glucose Tablet -) 4 gm PO PRN PRN PRN Reason: HYPOGLYCEMIA Enoxaparin Sodium (Lovenox -) 80 mg SQ DAILY [facility] Last Admin: 04/08/19 13:02 Dose: 80 mg Dextrose/Lactated Ringer's (D5-Lr -) 1,000 mls @ 75 mls/hr IV ASDIR [facility] Last Admin: 04/08/19 14:04 Dose: 75 mls/hr Meropenem 500 mg/ Dextrose 100 mls @ 200 mls/hr IVPB Q8H-IV [facility] Last Admin: 04/08/19 10:34 Dose: 200 mls/hr Insulin Aspart (Novolog Vial Sliding Scale -) 1 vial SQ Q4H [facility]; Protocol Last Admin: 04/08/19 14:39 Dose: Not Given Morphine Sulfate (Morphine Sulfate) 2 mg IM Q6H PRN PRN Reason: PAIN LEVEL 7 - 10 Last Admin: 04/08/19 13:58 Dose: 2 mg Mupirocin (Bactroban Ointment (For Decolonization) -) 1 applic NS BID [facility] Stop: 04/13/19 21:59 Nystatin (Mycostatin Ointment -) 1 applic TP BID [facility] Last Admin: 04/08/19 10:48 Dose: 1 applic Ondansetron HCl (Zofran Injection) 4 mg IVPUSH Q6H PRN PRN Reason: NAUSEA AND/OR VOMITING Pantoprazole Sodium (Protonix Iv) 40 mg IVPUSH BID [facility] Last Admin: 04/08/19 13:02 Dose: 40 mg Vancomycin HCl (Vancomycin Oral Solution) 125 mg PO Q6HPO [facility] Last Admin: 04/08/19 12:06 Dose: Not Given - Objective Vital Signs: Vital Signs Temperature 100.9 F H 04/08/19 10:00 Pulse Rate 128 H 04/08/19 10:00 Respiratory Rate 38 H 04/08/19 11:57 Blood Pressure 149/71 04/08/19 10:00 O2 Sat by Pulse Oximetry (%) 100 04/08/19 08:01 Labs: CBC, BMP 04/08/19 08:30 04/08/19 11:30 INR, PTT INR 0.95 (0.83-1.09) 03/26/19 06:00 Fibrinogen 359.0 mg/dL (238-498) 03/19/19 23:15
[2019-04-08 16:01] LABS: BASO % 0.7 % (0-2.0); HEMATOCRIT 27.2 % (32.4-45.2); HEMOGLOBIN 8.6 GM/dL (10.7-15.3); LYMPH % 7.9 % (8-40); MCH 27.8 pg (25.7-33.7); MCHC 31.5 g/dl (32.0-36.0); MEAN CELL VOLUME 88.2 fl (80-96); MEAN PLT VOLUME 8.6 fl (7.5-11.1); MONO % 8.3 % (3.8-10.2); NEUT % 83.1 % (42.8-82.8); PLATELET COUNT 631 K/MM3 (134-434); RBC 3.08 M/mm3 (3.60-5.2); RDW 23.8 % (11.6-15.6)
[2019-04-08] MEDS: KCL 10 MEQ IVPB 10 MEQ/100 ML INFUS.BAG IVPB SCH ×4 (16:21→21:37)
[2019-04-08 16:29] LABS: ALBUMIN 2.1 g/dl (3.4-5.0); ALK PHOS 229 U/L (45-117); ANION GAP 16 MMOL/L (8-16); BILIRUBIN,TOTAL 0.2 mg/dL (0.2-1); BLOOD UREA NITROGEN 9.4 mg/dL (7-18); BLOOD UREA NITROGEN 9.7 mg/dL (7-18); CALCIUM 8.6 mg/dL (8.5-10.1); CALCIUM 8.7 mg/dL (8.5-10.1); CHLORIDE 104 mmol/L (98-107); CO2 23 mmol/L (21-32); CREATININE 0.8 mg/dL (0.55-1.3); GLUCOSE,RANDOM 319 mg/dL (74-106); POTASSIUM 3.4 mmol/L (3.5-5.1); SGOT/AST 37 U/L (15-37); SGPT/ALT 18 U/L (13-61); SODIUM 143 mmol/L (136-145); TOT PROT 6.7 g/dl (6.4-8.2); TOT PROT 6.8 g/dl (6.4-8.2)
--- NOTE | 2019-04-08 16:48 | PN ---
Progress Note (short form) - Note Progress Note: Labs from rapid reviewed. With WBC count 11, bump from previous. Possible septic 2/2 wound infection, vs. PNA. will f/u cx. Without DKA. BG 319, however no AG, bicarb WNL.
[2019-04-08] MEDS ORDERED: DEXTROSE 50%-WATER - 25 GM/50 ML VIAL ONE ×2 (16:52→18:47)
[2019-04-08] MEDS ORDERED: DEXTROSE 50%-WATER - 25 GM/50 ML VIAL IVPUSH ONE ×2 (16:53→22:10)
[2019-04-08] MEDS ORDERED: SODIUM CHLORIDE 500 ML IV STA (17:45)
[2019-04-08] MEDS ORDERED: PT OWN MED DRAWER 7, Y5N ONE ×2 (17:54→19:53)
[2019-04-08] MEDS ORDERED: ONDANSETRON 4 MG/2 ML VIAL IVPUSH PRN (18:07)
[2019-04-08] MEDS ORDERED: DEXTROSE 4 GM TAB.CHEW PO PRN (18:07)
[2019-04-08] MEDS: DEXTROSE 50%-WATER - 25 GM/50 ML VIAL IVPUSH SCH (18:45)
[2019-04-08] MEDS ORDERED: DEXTROSE 5%-NORMAL SALINE 1,000 ML IV SCH (19:00)
--- NOTE | 2019-04-08 20:17 | PN ---
Progress Note, Physician History of Present Illness: Covering for Dr. Krishnamurthy: Pt s/p small bowel resection for likely Crohn's related perforation POD27, with multiple underlying medical problems, critically ill, s/p tracheostomy still ventilated, with recurrent C. diff, pneumonia and midline wounds with fascial dehiscence being treated with VAC dressings. VAC last changed 3d ago, due today. Per notes, she had been transferred to floor yesterday, but is back in ICU today after rapid response for tachycardia, tachypnea, diaphoresis. She was getting tube feeds via Dobhoff, but tube is currently out. Not purposefully responsive, though her eyes are open and she does move her head and all limbs, left side much less than right, arm less than leg. - Current Medication List Current Medications: Active Medications Albuterol/Ipratropium (Duoneb -) 1 amp NEB Q6H PRN PRN Reason: SHORTNESS OF BREATH Amino Acids (Prosource No Carb Liquid Pkt) 30 ml PO DAILY [facility] Chlorhexidine Gluconate (Hibiclens For Decolonization -) 1 applic TP HS [facility] Chlorhexidine Gluconate (Peridex -) 15 ml MM BID [facility] Dextrose (Glucose Tablet -) 4 gm PO PRN PRN PRN Reason: HYPOGLYCEMIA Dextrose (D50w (Vial) -) 25 gm IVPUSH ONCE [facility] Stop: 04/09/19 18:49 Last Admin: 04/08/19 18:45 Dose: 25 gm Enoxaparin Sodium (Lovenox -) 70 mg SQ BID [facility] Dextrose/Lactated Ringer's (D5-Lr -) 1,000 mls @ 75 mls/hr IV ASDIR [facility] Meropenem 1 gm/ Dextrose 100 mls @ 200 mls/hr IVPB Q8H-IV [facility] Dextrose/Sodium Chloride (D5-Ns -) 1,000 mls @ 100 mls/hr IV ASDIR [facility] Insulin Aspart (Novolog Vial Sliding Scale -) 1 vial SQ Q4HPO [facility]; Protocol Morphine Sulfate (Morphine Sulfate) 2 mg IM Q6H PRN PRN Reason: PAIN LEVEL 7 - 10 Mupirocin (Bactroban Ointment (For Decolonization) -) 1 applic NS BID [facility] Stop: 04/13/19 21:59 Nystatin (Mycostatin Ointment -) 1 applic TP BID [facility] Ondansetron HCl (Zofran Injection) 4 mg IVPUSH Q6H PRN PRN Reason: NAUSEA AND/OR VOMITING Pantoprazole Sodium (Protonix Iv) 40 mg IVPUSH BID [facility] Vancomycin HCl (Vancomycin Oral Solution) 125 mg PO Q6HPO [facility] - Objective Vital Signs: Vital Signs Temperature 100.8 F H 04/08/19 18:00 Pulse Rate 117 H 04/08/19 18:00 Respiratory Rate 29 H 04/08/19 18:00 Blood Pressure 127/75 04/08/19 18:00 O2 Sat by Pulse Oximetry (%) 100 04/08/19 09:00 Vital Signs Period Temp Pulse Resp BP Sys/Rapp Pulse Ox Last 24 Hr 97.5 F-101.9 F 103-128 16-38 121-149/64-85 100-100 Constitutional: Yes: Well Nourished, No Distress, Diaphoresis Eyes: Yes: Conjunctiva Clear. No: Sclera Icterus HENT: Yes: Atraumatic, Normocephalic Respiratory: Yes: Mechanically Ventilated, Other (tracheostomy in place) Gastrointestinal: Yes: Soft. No: Distention ...Rectal Exam: Yes: Other (rectal tube is out) Genitourinary: Yes: Lott Present. No: Hematuria Extremities: No: Cool, Cyanosis Integumentary: Yes: Incision (midline with two open areas, VAC dressing in place ). No: Jaundice, Rash Wound/Incision: Yes: Dressing Dry and Intact (VAC with good seal at -125mm continuous pressure), Dressing Removed (and changed - skin prep around entire wound, which was windowed with VAC drape to protect skin, white foam over base of both sites, then black foam placed over both areas in continuity and re- covered with drape film; good seal obtained), Draining (small amount serous drainage in canister), Unapproximated (upper wound measures 8 x 3 x 1cm deep, elliptical, with granulation tissue and small residual area of white/pale dehisced fascia in central/midline base; lower wound measures 4.2 x 2.4 x 1.5cm deep, more calvin-shaped, with granulation tissue and small central portion of white/pale dehisced fascia in central base; white areas covered with strips of white foam as noted above) Neurological: Yes: Alert, Unresponsive (not purposefully). No: Oriented Labs: CBC, BMP 04/08/19 14:15 04/08/19 14:15 CMP Sodium 143 mmol/L (136-145) 04/08/19 14:15 Potassium 3.4 mmol/L (3.5-5.1) L 04/08/19 14:15 Chloride 104 mmol/L (98-107) 04/08/19 14:15 Carbon Dioxide 23 mmol/L (21-32) 04/08/19 14:15 Anion Gap 16 MMOL/L (8-16) 04/08/19 14:15 BUN 9.7 mg/dL (7-18) 04/08/19 14:15 Creatinine 0.8 mg/dL (0.55-1.3) 04/08/19 14:15 Est GFR (CKD-EPI)AfAm 100.33 04/08/19 14:15 Est GFR (CKD-EPI)NonAf 86.57 04/08/19 14:15 POC Glucometer 152 UNITS (80-120) 04/08/19 18:54 Random Glucose 319 mg/dL (74-106) H 04/08/19 14:15 Hemoglobin A1c % 9.8 % (4.2-6.3) H 03/10/19 07:20 Lactic Acid 6.1 mmol/L (0.4-2.0) H* 04/08/19 14:15 Calcium 8.7 mg/dL (8.5-10.1) 04/08/19 14:15 Phosphorus 2.2 mg/dL (2.5-4.9) L 04/08/19 08:30 Magnesium 1.7 mg/dL (1.8-2.4) L 04/08/19 08:30 Iron 125 ug/dL (50-175) 03/20/19 17:00 TIBC 124 ug/dL (250-450) L 03/20/19 17:00 Iron Saturation 100 % (17.5-39) H 03/20/19 17:00 Unsaturated IBC -1 ug/dL (200-275) L 03/20/19 17:00 Ferritin 220.2 ng/ml (8-388) 03/20/19 17:00 Total Bilirubin 0.2 mg/dL (0.2-1) 04/08/19 14:15 AST 37 U/L (15-37) 04/08/19 14:15 ALT 18 U/L (13-61) 04/08/19 14:15 Alkaline Phosphatase 229 U/L (45-117) H 04/08/19 14:15 Creatine Kinase 109 U/L (26-192) 03/19/19 15:40 Troponin I < 0.02 ng/ml (0.00-0.05) 04/08/19 14:15 C-Reactive Protein 43.2 MG/DL (0.00-0.3) H 03/11/19 05:10 Total Protein 6.7 g/dl (6.4-8.2) 04/08/19 14:15 Albumin 2.1 g/dl (3.4-5.0) L 04/08/19 14:15 Prealbumin 7.0 mg/dl (20-40) L 03/19/19 05:00 Lipase 58 U/L (73-393) L 03/09/19 17:55 Beta-Hydroxybutyrate 0.9 mg/dL (0.2-2.8) 03/22/19 05:10 Microbiology 04/02/19 19:20 Blood Culture - Final Blood - Peripheral Venous NO GROWTH AFTER 5 DAYS INCUBATION 04/02/19 19:30 Blood Culture - Final Blood - Peripheral Venous NO GROWTH AFTER 5 DAYS INCUBATION Problem List - Problems (1) Postoperative dehiscence of internal wound Code(s): T81.32XA - DISRUPTION OF INTERNAL OPERATION (SURGICAL) WOUND, NEC, INIT Qualifiers: Encounter type: subsequent encounter Qualified Code(s): T81.32XD - Disruption of internal operation (surgical) wound, not elsewhere classified, subsequent encounter (2) Open wound anterior abdominal wall Code(s): S31.109A - UNSP OPN WND ABD WALL, UNSP Q W/O PENET PERIT CAV, INIT Qualifiers: Encounter type: subsequent encounter Qualified Code(s): S31.109D - Unspecified open wound of abdominal wall, unspecified quadrant without penetration into peritoneal cavity, subsequent encounter (3) C. difficile diarrhea Code(s): A04.72 - ENTEROCOLITIS D/T CLOSTRIDIUM DIFFICILE, NOT SPCF RECUR (4) Crohn's disease Code(s): K50.90 - CROHN'S DISEASE, UNSPECIFIED, WITHOUT COMPLICATIONS Qualifiers: Gastrointestinal tract location: small intestine Digestive disease complication type: with rectal bleeding Qualified Code(s): K50.011 - Crohn's disease of small intestine with rectal bleeding (5) ESBL (extended spectrum beta-lactamase) producing bacteria infection Code(s): A49.9 - BACTERIAL INFECTION, UNSPECIFIED; Z16.12 - EXTENDED SPECTRUM BETA LACTAMASE (ESBL) RESISTANCE (6) Acute respiratory failure Code(s): J96.00 - ACUTE RESPIRATORY FAILURE, UNSP W HYPOXIA OR HYPERCAPNIA Qualifiers: Respiratory failure complication: unspecified whether with hypoxia or hypercapnia Qualified Code(s): J96.00 - Acute respiratory failure, unspecified whether with hypoxia or hypercapnia (7) Diabetic gastroparesis associated with type 1 diabetes mellitus Code(s): E10.43 - TYPE 1 DIABETES W DIABETIC AUTONOMIC (POLY)NEUROPATHY; K31.84 - GASTROPARESIS Assessment/Plan POD27 s/p small bowel resection for Crohn's perforation trach'ed, ventilated in ICU pneumonia growing Klebsiella in sputum cx C. diff diarrhea on oral vancomycin via NGT was tolerating tube feeds via Dobhoff NGT - now on hold, pending possible PEG at some point midline surgical wound initially left to heal in two places by secondary intention fascial dehiscence noted at both sites, initially at inferior aspects of both wounds wounds granulating with VAC therapy, white and black foam VAC changed with nurse's assistance as noted with skin prep, white and black foam continue changes q3 days ensure ALL surrounding skin edges protected by drape - NO black foam on intact skin once wound bases are fully granulated, may d/c white foam and continue with black until healed up to skin level medical management per primary team and ICU This patient is critically ill. Time spent reviewing chart, examining patient, changing dressing, talking with providers and/or family and documentation is 45 minutes.
[2019-04-08] MEDS ORDERED: MEROPENEM 1 GM in DEXTROSE 5%-WATER 100 ML IVPB ONE (21:39)
[2019-04-08] MEDS ORDERED: DEXTROSE 5%-WATER 100 ML IVPB ONE (21:47)
[2019-04-08] MEDS ORDERED: MEROPENEM 1 GM VIAL (RESTRICTED TO ID) IVPB ONE (21:47)
[2019-04-08] MEDS: MUPIROCIN 2% TOPICAL OINTMENT FOR DECOLONIZATION NS SCH (21:51)
[2019-04-08] MEDS: CHLORHEXIDINE GLUCONATE 4% CLEANSER FOR DECOLONIZATION TP SCH (21:52)
[2019-04-08] MEDS: ENOXAPARIN NA (PORCINE) 80 MG/0.8 ML DISP.SYRIN SQ SCH (21:52)
[2019-04-08] MEDS ORDERED: INSULIN (LEVEMIR) 100 UNITS/ML UNITS SQ SCH (22:00)
[2019-04-08 23:55] LABS: EPI CELLS 6.1 /HPF (0-5/HPF); HYALINE CASTS 39 /lpf (0-8); PH,URINE 7.5 (5.0-8.0); URINE APPEARANCE CLEAR; URINE BILIRUBIN NEGATIVE (NEGATIVE); URINE COLOR YELLOW; URINE GLUCOSE (UA) TRACE (NEGATIVE); URINE KETONE TRACE (NEGATIVE); URINE LEUK ESTERASE NEGATIVE (NEGATIVE); URINE NITRITE NEGATIVE (NEGATIVE); URINE PROTEIN 2+ (NEGATIVE); URINE RBC 2 /hpf (0-4); URINE UROBILINOGEN 0.2 mg/dL (0.2-1.0); URINE WBC 2 /hpf (0-5)
[2019-04-09 00:21] LABS: URINE BACTERIA FEW /hpf (NEGATIVE)
[2019-04-09 00:25] LABS: ALBUMIN 1.8 g/dl (3.4-5.0); BILIRUBIN,TOTAL 0.2 mg/dL (0.2-1); BLOOD UREA NITROGEN 6.6 mg/dL (7-18); CREATININE 0.3 mg/dL (0.55-1.3); TOT PROT 5.8 g/dl (6.4-8.2)
[2019-04-09 00:29] LABS: POTASSIUM 2.8 mmol/L (3.5-5.1)
[2019-04-09] MEDS: VANCOMYCIN 250 MG/5 ML ORAL SOLUTION PO SCH ×4 (01:06→17:23)
[2019-04-09] MEDS: KCL 10 MEQ IVPB 10 MEQ/100 ML INFUS.BAG IVPB SCH ×3 (01:07→02:56)
[2019-04-09] MEDS ORDERED: DEXTROSE 5%-WATER 100 ML IVPB ONE ×2 (01:15→09:32)
[2019-04-09] MEDS ORDERED: MEROPENEM 1 GM VIAL (RESTRICTED TO ID) IVPB ONE ×2 (01:15→09:31)
[2019-04-09] MEDS: MEROPENEM 1 GM in DEXTROSE 5%-WATER 100 ML IVPB SCH ×3 (02:05→17:24)
[2019-04-09] MEDS ORDERED: MORPHINE SULFATE 2 MG/ML VIAL IVPUSH PRN (03:23)
[2019-04-09] MEDS: INSULIN SLIDING SCALE (NOVOLOG) 1 VIAL SQ SCH ×4 (03:26→17:20)
[2019-04-09] MEDS: ACETAMINOPHEN 1000 MG/100 ML VIAL (NON FORMULARY) IVPB PRN ×2 (05:40→13:07)
[2019-04-09 07:08] LABS: BASO % 0.5 % (0-2.0); EOS % 0.3 % (0-4.5); HEMATOCRIT 22.3 % (32.4-45.2); HEMOGLOBIN 7.4 GM/dL (10.7-15.3); LYMPH % 19.2 % (8-40); MCH 28.8 pg (25.7-33.7); MCHC 33.3 g/dl (32.0-36.0); MEAN CELL VOLUME 86.7 fl (80-96); MEAN PLT VOLUME 8.2 fl (7.5-11.1); MONO % 10.1 % (3.8-10.2); NEUT % 69.9 % (42.8-82.8); PLATELET COUNT 476 K/MM3 (134-434); RBC 2.57 M/mm3 (3.60-5.2); RDW 23.8 % (11.6-15.6); WHITE BLOOD COUNT 9.7 K/mm3 (4.0-10.0)
[2019-04-09 07:29] LABS: ALBUMIN 1.7 g/dl (3.4-5.0); BILIRUBIN,TOTAL 0.3 mg/dL (0.2-1); BLOOD UREA NITROGEN 7.1 mg/dL (7-18); CALCIUM 7.4 mg/dL (8.5-10.1); CREATININE 0.3 mg/dL (0.55-1.3); MAGNESIUM 1.7 mg/dL (1.8-2.4); POTASSIUM 3.6 mmol/L (3.5-5.1); TOT PROT 5.5 g/dl (6.4-8.2)
[2019-04-09] MEDS ORDERED: MAGNESIUM SULF 50% (8.12 MEQ/2 ML-1 GM VIAL) IVPB ONE (08:38)
--- NOTE | 2019-04-09 09:21 | PN ---
Progress Note (short form) - Note Progress Note: Awake Transferred back to ICU Episode of hypoglycemia On Tube feeding Intubated 2 Vital Signs Period Temp Pulse Resp BP Sys/Rapp Pulse Ox Last 24 Hr 99.3 F-102.5 F 97-139 16-44 121-149/71-88 99-100 PE: Intubated, s/P tracheostomy, lethargic Neck: supple Lungs: CTA CVS: s1S2 Abd: Benign Neuro: intubated CMP Sodium 139 mmol/L (136-145) 04/09/19 05:48 Potassium 3.6 mmol/L (3.5-5.1) 04/09/19 05:48 Chloride 104 mmol/L (98-107) 04/09/19 05:48 Carbon Dioxide 28 mmol/L (21-32) 04/09/19 05:48 Anion Gap 6 MMOL/L (8-16) L 04/09/19 05:48 BUN 7.1 mg/dL (7-18) 04/09/19 05:48 Creatinine 0.3 mg/dL (0.55-1.3) L 04/09/19 05:48 Est GFR (CKD-EPI)AfAm 155.82 04/09/19 05:48 Est GFR (CKD-EPI)NonAf 134.44 04/09/19 05:48 POC Glucometer 361 UNITS (80-120) 04/09/19 06:14 Random Glucose 348 mg/dL (74-106) H 04/09/19 05:48 Hemoglobin A1c % 9.8 % (4.2-6.3) H 03/10/19 07:20 Lactic Acid 1.0 mmol/L (0.4-2.0) 04/08/19 23:30 Calcium 7.4 mg/dL (8.5-10.1) L 04/09/19 05:48 Phosphorus 2.2 mg/dL (2.5-4.9) L 04/08/19 08:30 Magnesium 1.7 mg/dL (1.8-2.4) L 04/09/19 05:48 Iron 125 ug/dL (50-175) 03/20/19 17:00 TIBC 124 ug/dL (250-450) L 03/20/19 17:00 Iron Saturation 100 % (17.5-39) H 03/20/19 17:00 Unsaturated IBC -1 ug/dL (200-275) L 03/20/19 17:00 Ferritin 220.2 ng/ml (8-388) 03/20/19 17:00 Total Bilirubin 0.3 mg/dL (0.2-1) 04/09/19 05:48 AST 20 U/L (15-37) 04/09/19 05:48 ALT 14 U/L (13-61) 04/09/19 05:48 Alkaline Phosphatase 173 U/L (45-117) H 04/09/19 05:48 Creatine Kinase 109 U/L (26-192) 03/19/19 15:40 Troponin I < 0.02 ng/ml (0.00-0.05) 04/08/19 14:15 C-Reactive Protein 43.2 MG/DL (0.00-0.3) H 03/11/19 05:10 Total Protein 5.5 g/dl (6.4-8.2) L 04/09/19 05:48 Albumin 1.7 g/dl (3.4-5.0) L 04/09/19 05:48 Prealbumin 7.0 mg/dl (20-40) L 03/19/19 05:00 Lipase 58 U/L (73-393) L 03/09/19 17:55 Beta-Hydroxybutyrate 0.9 mg/dL (0.2-2.8) 03/22/19 05:10 Current Medications Generic Name Dose Route Start Last Admin Trade Name Freq PRN Reason Stop Dose Admin Acetaminophen 1,000 mg 04/09/19 03:23 04/09/19 05:40 Ofirmev Injection - IVPB 1,000 mg Q6H PRN Administration FEVER Albuterol/Ipratropium 1 amp 04/08/19 18:07 Duoneb - NEB Q6H PRN SHORTNESS OF BREATH Amino Acids 30 ml 04/09/19 10:00 Prosource No Carb Liquid Pkt PO DAILY [facility] Chlorhexidine Gluconate 1 applic 04/08/19 22:00 04/08/19 21:52 Hibiclens For Decolonization - TP 1 applic HS [facility] Administration Chlorhexidine Gluconate 15 ml 04/08/19 22:00 04/08/19 21:53 Peridex - MM 15 ml BID [facility] Administration Dextrose 4 gm 04/08/19 18:07 Glucose Tablet - PO PRN PRN HYPOGLYCEMIA Dextrose 25 gm 04/08/19 18:48 04/08/19 18:45 D50w (Vial) - IVPUSH 04/09/19 18:49 25 gm ONCE [facility] Administration Enoxaparin Sodium 70 mg 04/08/19 22:00 04/08/19 21:52 Lovenox - SQ 70 mg BID [facility] Administration Dextrose/Lactated Ringer's 1,000 mls @ 75 mls/hr 04/08/19 18:07 04/08/19 21: 51 D5-Lr - IV 75 mls/hr ASDIR [facility] Administration Meropenem 1 gm/ Dextrose 100 mls @ 200 mls/hr 04/09/19 02:00 04/09/19 02:05 IVPB 200 mls/hr Q8H-IV [facility] Administration Insulin Aspart 1 vial 04/09/19 03:25 04/09/19 06:29 Novolog Vial Sliding Scale - SQ 7 units Q4HPO [facility] Administration Protocol Magnesium Sulfate 1 gm 04/09/19 08:38 Magnesium Sulfate IVPB 04/09/19 08:39 ONCE ONE Morphine Sulfate 2 mg 04/09/19 03:23 Morphine Sulfate IVPUSH Q4H PRN PAIN LEVEL 7 - 10 Mupirocin 1 applic 04/08/19 22:00 04/08/19 21:51 Bactroban Ointment (For Decolonization) - NS 04/13/19 21:59 1 applic BID [facility] Administration Nystatin 1 applic 04/08/19 22:00 04/08/19 21:53 Mycostatin Ointment - TP Not Given BID [facility] Ondansetron HCl 4 mg 04/08/19 18:07 Zofran Injection IVPUSH Q6H PRN NAUSEA AND/OR VOMITING Pantoprazole Sodium 40 mg 04/08/19 22:00 04/08/19 21:53 Protonix Iv IVPUSH 40 mg BID [facility] Administration Vancomycin HCl 125 mg 04/09/19 00:00 04/09/19 05:42 Vancomycin Oral Solution PO Not Given Q6HPO [facility] AP: T1DM with acidosis: Acidosis resolved, episode of hypoglycemia S/P Tracheostomy s/p Cardiopulmonary Arrest R/o Anoxic Brain Injury Acute Hypoxic Respiratory Failure Perforated Small Bowel s/p ex-lap/RAYSHAWN/segmental SB resection Crohn's Disease Peritonitis +C diff Colitis Septic Shock/Lactic Acidosis h/o PE HTN h/o CVA Pt has type 1 DM and is sensitive to Insulin. Will limit maximum NOvolog to 8 units coverage even if BGM is >400. Repeat BGM after 2 hours and give 2 to 3 units more Novolog is necessary when BGM >400 Pt s/p Tracheostomy Iv hydration as necessary, Add D5NS whenever tube feeding is on hold for any reason Off Insulin drip BGM Q 6 hour Levemir 10 units daily Novolog coverage Q 6 hrs Adjust Insulin dose as necessary Replace electrolytes as necessary
--- NOTE | 2019-04-09 09:27 | CONSULT ---
Consult - text type - Consultation Consultation Note: Neurology CHIEF COMPLAINT: AMS PCP: Dr. Chaudhary HISTORY OF PRESENT ILLNESS: 48 year-old female with a PMH significant for Type I IDDM, frequent admissions for DKA, HTN, HLD, CVA with left-sided weakness. Recent hospitalization at [facility] September 2018 for SBO and seen prior to that in Jul 2018 here by me. She was admitted for abdominal pain. Now s/p small bowel resection for likely Crohn's related perforation, with multiple underlying medical problems, critically ill, s/p tracheostomy still ventilated, with recurrent C. diff, pneumonia and midline wounds with fascial dehiscence. Per notes, she had been transferred to floor yesterday, but is back in ICU today after rapid response for tachycardia, tachypnea, diaphoresis. She was getting tube feeds tube was out. Being possibly managed with PEG. I was consulted for evaluation of possible anoxic brain injury. The patient is awake, alert, follows minimal commands and still appears fatigued and generally ill. Does have brainstem reflexes and some higher order functioning with ability to move extremities though not participating in confrontation testing and with history of L sided weakness 2/2 CVA. Did not have recent imaging for brain, will order CT head. Recent Travel: Unknown PAST MEDICAL HISTORY: Type I IDDM Hypertension Hyperlipidemia CVA PAST SURGICAL HISTORY: Lap cholecsytectomy Colectomy Heart surgery Social History: Smoking: current smoker Alcohol: no Drugs: no Family History: HTN Allergies No Known Allergies Allergy (Verified 03/09/19 16:48) HOME MEDICATIONS: Home Medications Medication Instructions Recorded Aspirin 81 mg PO DAILY #30 tab.chew 08/13/18 Atorvastatin Ca [Lipitor] 40 mg PO HS #30 tablet 08/13/18 Gabapentin 300 mg PO BID 12/23/18 Quetiapine Fumarate [Seroquel -] 25 mg PO BID 12/23/18 Insulin Sliding Scale [Novolog 1 vial SQ ACHS #600 units 12/25/18 Vial Sliding Scale -] Rivaroxaban [Xarelto] 15 mg PO BID #60 tablet 12/25/18 predniSONE [Deltasone -] 40 mg PO DAILY #30 tablet 12/25/18 traMADol HCL [Ultram -] 100 mg PO Q8H PRN #90 tablet MDD 6 12/25/18 Insulin Detemir [Levemir Flextouch] 12 unit SQ BID 01/26/19 Amoxicillin/Potassium Clav 1 each PO BID 03/07/19 [Augmentin 875-125 Tablet] HYDROmorphone [Dilaudid -] 4 mg PO Q6H PRN 03/07/19 Active Medications Acetaminophen (Ofirmev Injection -) 1,000 mg IVPB Q6H PRN PRN Reason: FEVER Last Admin: 04/09/19 05:40 Dose: 1,000 mg Albuterol/Ipratropium (Duoneb -) 1 amp NEB Q6H PRN PRN Reason: SHORTNESS OF BREATH Amino Acids (Prosource No Carb Liquid Pkt) 30 ml PO DAILY [facility] Chlorhexidine Gluconate (Hibiclens For Decolonization -) 1 applic TP HS [facility] Last Admin: 04/08/19 21:52 Dose: 1 applic Chlorhexidine Gluconate (Peridex -) 15 ml MM BID [facility] Last Admin: 04/08/19 21:53 Dose: 15 ml Dextrose (Glucose Tablet -) 4 gm PO PRN PRN PRN Reason: HYPOGLYCEMIA Dextrose (D50w (Vial) -) 25 gm IVPUSH ONCE [facility] Stop: 04/09/19 18:49 Last Admin: 04/08/19 18:45 Dose: 25 gm Enoxaparin Sodium (Lovenox -) 70 mg SQ BID [facility] Last Admin: 04/08/19 21:52 Dose: 70 mg Dextrose/Lactated Ringer's (D5-Lr -) 1,000 mls @ 75 mls/hr IV ASDIR [facility] Last Admin: 04/08/19 21:51 Dose: 75 mls/hr Meropenem 1 gm/ Dextrose 100 mls @ 200 mls/hr IVPB Q8H-IV [facility] Last Admin: 04/09/19 02:05 Dose: 200 mls/hr Insulin Aspart (Novolog Vial Sliding Scale -) 1 vial SQ Q4HPO [facility]; Protocol Last Admin: 04/09/19 06:29 Dose: 7 units Morphine Sulfate (Morphine Sulfate) 2 mg IVPUSH Q4H PRN PRN Reason: PAIN LEVEL 7 - 10 Mupirocin (Bactroban Ointment (For Decolonization) -) 1 applic NS BID [facility] Stop: 04/13/19 21:59 Last Admin: 04/08/19 21:51 Dose: 1 applic Nystatin (Mycostatin Ointment -) 1 applic TP BID [facility] Last Admin: 04/08/19 21:53 Dose: Not Given Ondansetron HCl (Zofran Injection) 4 mg IVPUSH Q6H PRN PRN Reason: NAUSEA AND/OR VOMITING Pantoprazole Sodium (Protonix Iv) 40 mg IVPUSH BID [facility] Last Admin: 04/08/19 21:53 Dose: 40 mg Vancomycin HCl (Vancomycin Oral Solution) 125 mg PO Q6HPO [facility] Last Admin: 04/09/19 05:42 Dose: Not Given REVIEW OF SYSTEMS CONSTITUTIONAL: Absent: fever, chills, diaphoresis, generalized weakness, malaise, loss of appetite, weight change HEENT: Absent: rhinorrhea, nasal congestion, throat pain, throat swelling, difficulty swallowing, mouth swelling, ear pain, eye pain, visual changes CARDIOVASCULAR: Absent: chest pain, syncope, palpitations, irregular heart rate, lightheadedness , peripheral edema RESPIRATORY: Absent: cough, shortness of breath, dyspnea with exertion, orthopnea, wheezing, stridor, hemoptysis GASTROINTESTINAL: +abdominal pain Absent: abdominal distension, nausea, vomiting, diarrhea, constipation, melena , hematochezia GENITOURINARY: Absent: dysuria, frequency, urgency, hesitancy, hematuria, flank pain, genital pain MUSCULOSKELETAL: Absent: myalgia, arthralgia, joint swelling, back pain, neck pain SKIN: Absent: rash, itching, pallor HEMATOLOGIC/IMMUNOLOGIC: Absent: easy bleeding, easy bruising, lymphadenopathy, frequent infections ENDOCRINE: Absent: unexplained weight gain, unexplained weight loss, heat intolerance, cold intolerance NEUROLOGIC: Absent: headache, focal weakness or paresthesias, dizziness, unsteady gait, seizure, mental status changes, bladder or bowel incontinence PSYCHIATRIC: Absent: anxiety, depression, suicidal or homicidal ideation, hallucinations. PHYSICAL EXAMINATION Vital Signs Period Temp Pulse Resp BP Sys/Rapp Pulse Ox Last 24 Hr 99.3 F-102.5 F 97-139 16-44 121-149/71-88 99-100 GENERAL: Awake, alert, not oriented HEAD: Normal with no signs of trauma. EYES: Pupils equal, round and reactive to light, extraocular movements intact, sclera anicteric, conjunctiva clear. No lid lag. LUNGS: Breath sounds equal, clear to auscultation bilaterally. No wheezes, and no crackles. No accessory muscle use. HEART: Regular rate and rhythm, normal S1 and S2, mediastinal scar ABDOMEN: Soft, nontender, diffusely tender, hypoactive bowel sounds; well- healed abdominal scars MUSCULOSKELETAL: Normal range of motion at all joints. No bony deformities or tenderness. UPPER EXTREMITIES: 2+ pulses, warm, well-perfused. No cyanosis. No clubbing. No peripheral edema. LOWER EXTREMITIES: 2+ pulses, warm, well-perfused. No calf tenderness. No peripheral edema. NEUROLOGICAL: Awake, alert, blinks to threat, moves extremities grossly, sensory intact, not participating to confrontation testing CBCD WBC 9.7 K/mm3 (4.0-10.0) 04/09/19 05:48 RBC 2.57 M/mm3 (3.60-5.2) L 04/09/19 05:48 Hgb 7.4 GM/dL (10.7-15.3) L 04/09/19 05:48 Hct 22.3 % (32.4-45.2) L D 04/09/19 05:48 MCV 86.7 fl (80-96) 04/09/19 05:48 MCHC 33.3 g/dl (32.0-36.0) 04/09/19 05:48 RDW 23.8 % (11.6-15.6) H 04/09/19 05:48 Plt Count 476 K/MM3 (134-434) H D 04/09/19 05:48 MPV 8.2 fl (7.5-11.1) 04/09/19 05:48 CMP Sodium 139 mmol/L (136-145) 04/09/19 05:48 Potassium 3.6 mmol/L (3.5-5.1) 04/09/19 05:48 Chloride 104 mmol/L (98-107) 04/09/19 05:48 Carbon Dioxide 28 mmol/L (21-32) 04/09/19 05:48 Anion Gap 6 MMOL/L (8-16) L 04/09/19 05:48 BUN 7.1 mg/dL (7-18) 04/09/19 05:48 Creatinine 0.3 mg/dL (0.55-1.3) L 04/09/19 05:48 Random Glucose 348 mg/dL (74-106) H 04/09/19 05:48 Calcium 7.4 mg/dL (8.5-10.1) L 04/09/19 05:48 Total Bilirubin 0.3 mg/dL (0.2-1) 04/09/19 05:48 AST 20 U/L (15-37) 04/09/19 05:48 ALT 14 U/L (13-61) 04/09/19 05:48 Alkaline Phosphatase 173 U/L (45-117) H 04/09/19 05:48 Total Protein 5.5 g/dl (6.4-8.2) L 04/09/19 05:48 Albumin 1.7 g/dl (3.4-5.0) L 04/09/19 05:48 CARDIAC ENZYMES Creatine Kinase 109 U/L (26-192) 03/19/19 15:40 Troponin I < 0.02 ng/ml (0.00-0.05) 04/08/19 14:15 ASSESSMENT/PLAN: 48 year-old female with a PMH significant for Type I IDDM, frequent admissions for DKA, HTN, HLD, CVA with left-sided weakness. Recent hospitalization at [facility] September 2018 for SBO and seen prior to that in Jul 2018 here by me. She was admitted for abdominal pain. Now s/p small bowel resection for likely Crohn's related perforation, with multiple underlying medical problems, critically ill, s/p tracheostomy still ventilated, with recurrent C. diff, pneumonia and midline wounds with fascial dehiscence. Per notes, she had been transferred to floor yesterday, but is back in ICU today after rapid response for tachycardia, tachypnea, diaphoresis. She was getting tube feeds tube was out. Being possibly managed with PEG. I was consulted for evaluation of possible anoxic brain injury. The patient is awake, alert, follows minimal commands and still appears fatigued and generally ill. Does have brainstem reflexes and some higher order functioning with ability to move extremities though not participating in confrontation testing. Did not have recent imaging for brain, will order CT head. Continue optimization of GI status. Monitor DM, has h/o elevated glucose and hyperglycemia that was poorly controlled. Monitor blood pressure, maintain normotensive range. Not currently on ASA or antiplatelet, restart when able. On IV Abx, continue infectious mgmt. Patient seen with ICU nurse at bedside who is aware of conditions. Critical care time 40 mins.
[2019-04-09] MEDS: ENOXAPARIN NA (PORCINE) 80 MG/0.8 ML DISP.SYRIN SQ SCH ×2 (09:37→21:05)
[2019-04-09] MEDS: MUPIROCIN 2% TOPICAL OINTMENT FOR DECOLONIZATION NS SCH ×2 (09:41→21:13)
[2019-04-09] MEDS: CHLORHEXIDINE GLUCONATE 0.12% 15ML CUP MM SCH ×2 (09:42→21:06)
[2019-04-09] MEDS: PANTOPRAZOLE SODIUM 40 MG VIAL IVPUSH SCH ×2 (09:43→21:06)
[2019-04-09] MEDS ORDERED: ENOXAPARIN NA (PORCINE) 80 MG/0.8 ML DISP.SYRIN SQ SCH (10:00)
[2019-04-09 10:38] LABS: PLATELET ESTIMATE NORMAL
--- NOTE | 2019-04-09 11:52 | PN ---
Teaching Attending Note Name of Resident: Baljeet Parr ATTENDING PHYSICIAN STATEMENT I saw and evaluated the patient. I reviewed the resident's note and discussed the case with the resident. I agree with the resident's findings and plan as documented. SUBJECTIVE: Patient seen and examined in the ICU. Lethargic but arousbale. AC Mode of vent. Low grade temperature, 99.3. Intake & Output 04/06/19 04/07/19 04/08/19 04/09/19 23:59 23:59 23:59 23:59 Intake Total 2040 2280 1875 1500 Output Total 1105 3400 3700 1195 Balance 935 -1120 -1825 305 Weight 104 lb 1.6 oz 112 lb 6.4 oz 145 lb 9.6 oz 124 lb 3.2 oz Last Vital Signs Temp Pulse Resp BP Pulse Ox 99.3 F 101 H 20 113/65 100 04/09/19 10:00 04/09/19 10:00 04/09/19 10:00 04/09/19 10:00 04/09/19 10:00 Active Medications Acetaminophen (Ofirmev Injection -) 1,000 mg IVPB Q6H PRN PRN Reason: FEVER Last Admin: 04/09/19 05:40 Dose: 1,000 mg Albuterol/Ipratropium (Duoneb -) 1 amp NEB Q6H PRN PRN Reason: SHORTNESS OF BREATH Amino Acids (Prosource No Carb Liquid Pkt) 30 ml PO DAILY [facility] Chlorhexidine Gluconate (Hibiclens For Decolonization -) 1 applic TP HS [facility] Last Admin: 04/08/19 21:52 Dose: 1 applic Chlorhexidine Gluconate (Peridex -) 15 ml MM BID [facility] Last Admin: 04/09/19 09:42 Dose: 15 ml Dextrose (Glucose Tablet -) 4 gm PO PRN PRN PRN Reason: HYPOGLYCEMIA Dextrose (D50w (Vial) -) 25 gm IVPUSH ONCE [facility] Stop: 04/09/19 18:49 Last Admin: 04/08/19 18:45 Dose: 25 gm Enoxaparin Sodium (Lovenox -) 70 mg SQ BID [facility] Last Admin: 04/09/19 09:37 Dose: 70 mg Dextrose/Lactated Ringer's (D5-Lr -) 1,000 mls @ 75 mls/hr IV ASDIR [facility] Last Admin: 04/08/19 21:51 Dose: 75 mls/hr Meropenem 1 gm/ Dextrose 100 mls @ 200 mls/hr IVPB Q8H-IV [facility] Last Admin: 04/09/19 09:36 Dose: 200 mls/hr Insulin Aspart (Novolog Vial Sliding Scale -) 1 vial SQ Q4HPO [facility]; Protocol Last Admin: 04/09/19 10:56 Dose: 4 units Morphine Sulfate (Morphine Sulfate) 2 mg IVPUSH Q4H PRN PRN Reason: PAIN LEVEL 7 - 10 Mupirocin (Bactroban Ointment (For Decolonization) -) 1 applic NS BID [facility] Stop: 04/13/19 21:59 Last Admin: 04/09/19 09:41 Dose: 1 applic Nystatin (Mycostatin Ointment -) 1 applic TP BID [facility] Last Admin: 04/08/19 21:53 Dose: Not Given Ondansetron HCl (Zofran Injection) 4 mg IVPUSH Q6H PRN PRN Reason: NAUSEA AND/OR VOMITING Pantoprazole Sodium (Protonix Iv) 40 mg IVPUSH BID [facility] Last Admin: 04/09/19 09:43 Dose: 40 mg Vancomycin HCl (Vancomycin Oral Solution) 125 mg PO Q6HPO [facility] Last Admin: 04/09/19 05:42 Dose: Not Given GENERAL: Lethargic, NAD HEAD: Normal with no signs of trauma. EYES: EOMI Sclera Clear EARS, NOSE, THROAT: MMM NECK: Supple, Trached LUNGS: Vented, decreased Breath sounds at bases HEART: S1S2 ABDOMEN: Wound Vac, ND, No facial grimacing to palpation LOWER EXTREMITIES: SCDs, No CCE NEUROLOGICAL: Moves all extremities, unable to follow commands Laboratory Results - last 24 hr 04/08/19 04/08/19 04/08/19 11:30 13:55 14:00 WBC RBC Hgb Hct MCV MCH MCHC RDW Plt Count MPV Absolute Neuts (auto) Neutrophils % Lymphocytes % Monocytes % Eosinophils % Basophils % Nucleated RBC % Platelet Estimate Platelet Comment Puncture Site Left radial ABG pH 7.39 ABG pCO2 at Pt Temp 33.6 L ABG pO2 at Pt Temp 153 H ABG HCO3 19.9 L ABG O2 Sat (Measured) 99.0 H ABG O2 Content 13.8 ABG Base Excess -3.9 L Atul Test Not applicable O2 Delivery Device Ltv Oxygen Flow Rate 40% Vent Mode A/c Vent Rate 16 Mechanical Rate Ltv PEEP 5.0 Pressure Support Vent 350 Sodium Potassium Chloride Carbon Dioxide Anion Gap BUN Creatinine Est GFR (CKD-EPI)AfAm Est GFR (CKD-EPI)NonAf POC Glucometer 296 Random Glucose 613 H* Lactic Acid Calcium Magnesium Total Bilirubin AST ALT Alkaline Phosphatase Troponin I Total Protein Albumin Urine Color Urine Appearance Urine pH Ur Specific Colo Urine Protein Urine Glucose (UA) Urine Ketones Urine Blood Urine Nitrite Urine Bilirubin Urine Urobilinogen Ur Leukocyte Esterase Urine WBC (Auto) Urine RBC (Auto) Urine Casts (Auto) U Pathogenic Cast Auto U Epithel Cells (Auto) U Sm Round Cell (Auto) Urine Bacteria (Auto) 04/08/19 04/08/19 04/08/19 14:15 14:15 14:15 WBC 11.0 H RBC 3.08 L Hgb 8.6 L Hct 27.2 L MCV 88.2 MCH 27.8 MCHC 31.5 L RDW 23.8 H Plt Count 631 H MPV 8.6 D Absolute Neuts (auto) 9.1 H Neutrophils % 83.1 H Lymphocytes % 7.9 L D Monocytes % 8.3 Eosinophils % 0.0 D Basophils % 0.7 Nucleated RBC % 0 Platelet Estimate Platelet Comment Puncture Site ABG pH ABG pCO2 at Pt Temp ABG pO2 at Pt Temp ABG HCO3 ABG O2 Sat (Measured) ABG O2 Content ABG Base Excess Atul Test O2 Delivery Device Oxygen Flow Rate Vent Mode Vent Rate Mechanical Rate PEEP Pressure Support Vent Sodium 143 143 Potassium 3.4 L 3.4 L Chloride 104 104 Carbon Dioxide 23 23 Anion Gap 16 16 BUN 9.4 9.7 Creatinine 0.8 0.8 Est GFR (CKD-EPI)AfAm 100.33 100.33 Est GFR (CKD-EPI)NonAf 86.57 86.57 POC Glucometer Random Glucose 319 H 319 H Lactic Acid Calcium 8.6 8.7 Magnesium Total Bilirubin 0.2 0.2 AST 35 37 ALT 18 18 Alkaline Phosphatase 224 H 229 H Troponin I < 0.02 Total Protein 6.8 6.7 Albumin 2.1 L 2.1 L Urine Color Urine Appearance Urine pH Ur Specific Colo Urine Protein Urine Glucose (UA) Urine Ketones Urine Blood Urine Nitrite Urine Bilirubin Urine Urobilinogen Ur Leukocyte Esterase Urine WBC (Auto) Urine RBC (Auto) Urine Casts (Auto) U Pathogenic Cast Auto U Epithel Cells (Auto) U Sm Round Cell (Auto) Urine Bacteria (Auto) 04/08/19 04/08/19 04/08/19 14:15 16:48 18:45 WBC RBC Hgb Hct MCV MCH MCHC RDW Plt Count MPV Absolute Neuts (auto) Neutrophils % Lymphocytes % Monocytes % Eosinophils % Basophils % Nucleated RBC % Platelet Estimate Platelet Comment Puncture Site ABG pH ABG pCO2 at Pt Temp ABG pO2 at Pt Temp ABG HCO3 ABG O2 Sat (Measured) ABG O2 Content ABG Base Excess Atul Test O2 Delivery Device Oxygen Flow Rate Vent Mode Vent Rate Mechanical Rate PEEP Pressure Support Vent Sodium Potassium Chloride Carbon Dioxide Anion Gap BUN Creatinine Est GFR (CKD-EPI)AfAm Est GFR (CKD-EPI)NonAf POC Glucometer 60 10 Random Glucose Lactic Acid 6.1 H* Calcium Magnesium Total Bilirubin AST ALT Alkaline Phosphatase Troponin I Total Protein Albumin Urine Color Urine Appearance Urine pH Ur Specific Colo Urine Protein Urine Glucose (UA) Urine Ketones Urine Blood Urine Nitrite Urine Bilirubin Urine Urobilinogen Ur Leukocyte Esterase Urine WBC (Auto) Urine RBC (Auto) Urine Casts (Auto) U Pathogenic Cast Auto U Epithel Cells (Auto) U Sm Round Cell (Auto) Urine Bacteria (Auto) 04/08/19 04/08/19 04/08/19 18:54 22:02 22:24 WBC RBC Hgb Hct MCV MCH MCHC RDW Plt Count MPV Absolute Neuts (auto) Neutrophils % Lymphocytes % Monocytes % Eosinophils % Basophils % Nucleated RBC % Platelet Estimate Platelet Comment Puncture Site ABG pH ABG pCO2 at Pt Temp ABG pO2 at Pt Temp ABG HCO3 ABG O2 Sat (Measured) ABG O2 Content ABG Base Excess Atul Test O2 Delivery Device Oxygen Flow Rate Vent Mode Vent Rate Mechanical Rate PEEP Pressure Support Vent Sodium Potassium Chloride Carbon Dioxide Anion Gap BUN Creatinine Est GFR (CKD-EPI)AfAm Est GFR (CKD-EPI)NonAf POC Glucometer 152 52 Random Glucose Lactic Acid Calcium Magnesium Total Bilirubin AST ALT Alkaline Phosphatase Troponin I Total Protein Albumin Urine Color Yellow Urine Appearance Clear Urine pH 7.5 D Ur Specific Colo 1.021 Urine Protein 2+ H Urine Glucose (UA) Trace Urine Ketones Trace H Urine Blood Negative Urine Nitrite Negative Urine Bilirubin Negative Urine Urobilinogen 0.2 Ur Leukocyte Esterase Negative Urine WBC (Auto) 2 Urine RBC (Auto) 2 Urine Casts (Auto) 39 U Pathogenic Cast Auto 0-2 U Epithel Cells (Auto) 6.1 U Sm Round Cell (Auto) Negative Urine Bacteria (Auto) Few 04/08/19 04/08/19 04/08/19 23:30 23:30 23:39 WBC RBC Hgb Hct MCV MCH MCHC RDW Plt Count MPV Absolute Neuts (auto) Neutrophils % Lymphocytes % Monocytes % Eosinophils % Basophils % Nucleated RBC % Platelet Estimate Platelet Comment Puncture Site ABG pH ABG pCO2 at Pt Temp ABG pO2 at Pt Temp ABG HCO3 ABG O2 Sat (Measured) ABG O2 Content ABG Base Excess Atul Test O2 Delivery Device Oxygen Flow Rate Vent Mode Vent Rate Mechanical Rate PEEP Pressure Support Vent Sodium 144 Potassium 2.8 L* Chloride 108 H Carbon Dioxide 30 Anion Gap 6 L BUN 6.6 L Creatinine 0.3 L Est GFR (CKD-EPI)AfAm 155.82 Est GFR (CKD-EPI)NonAf 134.44 POC Glucometer 63 Random Glucose 66 L Lactic Acid 1.0 Calcium 8.0 L Magnesium Total Bilirubin 0.2 AST 26 ALT 16 Alkaline Phosphatase 181 H Troponin I Total Protein 5.8 L Albumin 1.8 L Urine Color Urine Appearance Urine pH Ur Specific Colo Urine Protein Urine Glucose (UA) Urine Ketones Urine Blood Urine Nitrite Urine Bilirubin Urine Urobilinogen Ur Leukocyte Esterase Urine WBC (Auto) Urine RBC (Auto) Urine Casts (Auto) U Pathogenic Cast Auto U Epithel Cells (Auto) U Sm Round Cell (Auto) Urine Bacteria (Auto) 04/09/19 04/09/19 04/09/19 02:24 05:48 05:48 WBC 9.7 RBC 2.57 L Hgb 7.4 L Hct 22.3 L D MCV 86.7 MCH 28.8 MCHC 33.3 RDW 23.8 H Plt Count 476 H D MPV 8.2 Absolute Neuts (auto) 6.8 Neutrophils % 69.9 Lymphocytes % 19.2 D Monocytes % 10.1 Eosinophils % 0.3 D Basophils % 0.5 Nucleated RBC % 0 Platelet Estimate Normal Platelet Comment Present Puncture Site ABG pH ABG pCO2 at Pt Temp ABG pO2 at Pt Temp ABG HCO3 ABG O2 Sat (Measured) ABG O2 Content ABG Base Excess Atul Test O2 Delivery Device Oxygen Flow Rate Vent Mode Vent Rate Mechanical Rate PEEP Pressure Support Vent Sodium 139 Potassium 3.6 Chloride 104 Carbon Dioxide 28 Anion Gap 6 L BUN 7.1 Creatinine 0.3 L Est GFR (CKD-EPI)AfAm 155.82 Est GFR (CKD-EPI)NonAf 134.44 POC Glucometer 181 Random Glucose 348 H Lactic Acid Calcium 7.4 L Magnesium 1.7 L Total Bilirubin 0.3 AST 20 ALT 14 Alkaline Phosphatase 173 H Troponin I Total Protein 5.5 L Albumin 1.7 L Urine Color Urine Appearance Urine pH Ur Specific Colo Urine Protein Urine Glucose (UA) Urine Ketones Urine Blood Urine Nitrite Urine Bilirubin Urine Urobilinogen Ur Leukocyte Esterase Urine WBC (Auto) Urine RBC (Auto) Urine Casts (Auto) U Pathogenic Cast Auto U Epithel Cells (Auto) U Sm Round Cell (Auto) Urine Bacteria (Auto) 04/09/19 04/09/19 06:14 10:54 WBC RBC Hgb Hct MCV MCH MCHC RDW Plt Count MPV Absolute Neuts (auto) Neutrophils % Lymphocytes % Monocytes % Eosinophils % Basophils % Nucleated RBC % Platelet Estimate Platelet Comment Puncture Site ABG pH ABG pCO2 at Pt Temp ABG pO2 at Pt Temp ABG HCO3 ABG O2 Sat (Measured) ABG O2 Content ABG Base Excess Atul Test O2 Delivery Device Oxygen Flow Rate Vent Mode Vent Rate Mechanical Rate PEEP Pressure Support Vent Sodium Potassium Chloride Carbon Dioxide Anion Gap BUN Creatinine Est GFR (CKD-EPI)AfAm Est GFR (CKD-EPI)NonAf POC Glucometer 361 288 Random Glucose Lactic Acid Calcium Magnesium Total Bilirubin AST ALT Alkaline Phosphatase Troponin I Total Protein Albumin Urine Color Urine Appearance Urine pH Ur Specific Colo Urine Protein Urine Glucose (UA) Urine Ketones Urine Blood Urine Nitrite Urine Bilirubin Urine Urobilinogen Ur Leukocyte Esterase Urine WBC (Auto) Urine RBC (Auto) Urine Casts (Auto) U Pathogenic Cast Auto U Epithel Cells (Auto) U Sm Round Cell (Auto) Urine Bacteria (Auto) ASSESSMENT/PLAN: R/O Sepsis: no clear source Type I IDDM PE (on Lovenox) Frequent admissions for DKA HTN 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
--- NOTE | 2019-04-09 12:39 | PN ---
Physical Exam: SUBJECTIVE: Patient seen and examined at bedside in the ICU. Patient is lethargic, but tracking the room with her eyes. Unable to follow instructions. Non-verbal. On AC vent. Wound vac change yesterday. OBJECTIVE: Vital Signs Period Temp Pulse Resp BP Sys/Rapp Pulse Ox Last 24 Hr 99.3 F-102.5 F 97-139 16-44 113-148/65-88 98-100 GENERAL: The patient is lethargic, in no acute distress. HEAD: Normal with no signs of trauma. EYES: PERRL, sclera anicteric, conjunctiva clear. No ptosis. ENT: Ears normal, nares patent, oropharynx clear without exudates, moist mucous membranes. NECK: Trach in place. LUNGS: Vented. HEART: Regular rate and rhythm, S1, S2 without murmur, rub or gallop. ABDOMEN: Soft, wound vac in place. Incision clean/dry, no purulent drainage or bleeding. Non distended. EXTREMITIES: 2+ pulses, warm, well-perfused, 2+ pitting edema upper/lower extremities. NEUROLOGICAL: Moving all extremities. Non-verbal. Otherwise unable to assess. SKIN: Warm, dry, normal turgor, no rashes or lesions noted Laboratory Results - last 24 hr 04/08/19 04/08/19 04/08/19 11:30 13:55 14:00 WBC RBC Hgb Hct MCV MCH MCHC RDW Plt Count MPV Absolute Neuts (auto) Neutrophils % Lymphocytes % Monocytes % Eosinophils % Basophils % Nucleated RBC % Platelet Estimate Platelet Comment Puncture Site Left radial ABG pH 7.39 ABG pCO2 at Pt Temp 33.6 L ABG pO2 at Pt Temp 153 H ABG HCO3 19.9 L ABG O2 Sat (Measured) 99.0 H ABG O2 Content 13.8 ABG Base Excess -3.9 L Atul Test Not applicable O2 Delivery Device Ltv Oxygen Flow Rate 40% Vent Mode A/c Vent Rate 16 Mechanical Rate Ltv PEEP 5.0 Pressure Support Vent 350 Sodium Potassium Chloride Carbon Dioxide Anion Gap BUN Creatinine Est GFR (CKD-EPI)AfAm Est GFR (CKD-EPI)NonAf POC Glucometer 296 Random Glucose 613 H* Lactic Acid Calcium Magnesium Total Bilirubin AST ALT Alkaline Phosphatase Troponin I Total Protein Albumin Urine Color Urine Appearance Urine pH Ur Specific [place] Urine Protein Urine Glucose (UA) Urine Ketones Urine Blood Urine Nitrite Urine Bilirubin Urine Urobilinogen Ur Leukocyte Esterase Urine WBC (Auto) Urine RBC (Auto) Urine Casts (Auto) U Pathogenic Cast Auto U Epithel Cells (Auto) U Sm Round Cell (Auto) Urine Bacteria (Auto) 04/08/19 04/08/19 04/08/19 14:15 14:15 14:15 WBC 11.0 H RBC 3.08 L Hgb 8.6 L Hct 27.2 L MCV 88.2 MCH 27.8 MCHC 31.5 L RDW 23.8 H Plt Count 631 H MPV 8.6 D Absolute Neuts (auto) 9.1 H Neutrophils % 83.1 H Lymphocytes % 7.9 L D Monocytes % 8.3 Eosinophils % 0.0 D Basophils % 0.7 Nucleated RBC % 0 Platelet Estimate Platelet Comment Puncture Site ABG pH ABG pCO2 at Pt Temp ABG pO2 at Pt Temp ABG HCO3 ABG O2 Sat (Measured) ABG O2 Content ABG Base Excess Atul Test O2 Delivery Device Oxygen Flow Rate Vent Mode Vent Rate Mechanical Rate PEEP Pressure Support Vent Sodium 143 143 Potassium 3.4 L 3.4 L Chloride 104 104 Carbon Dioxide 23 23 Anion Gap 16 16 BUN 9.4 9.7 Creatinine 0.8 0.8 Est GFR (CKD-EPI)AfAm 100.33 100.33 Est GFR (CKD-EPI)NonAf 86.57 86.57 POC Glucometer Random Glucose 319 H 319 H Lactic Acid Calcium 8.6 8.7 Magnesium Total Bilirubin 0.2 0.2 AST 35 37 ALT 18 18 Alkaline Phosphatase 224 H 229 H Troponin I < 0.02 Total Protein 6.8 6.7 Albumin 2.1 L 2.1 L Urine Color Urine Appearance Urine pH Ur Specific [place] Urine Protein Urine Glucose (UA) Urine Ketones Urine Blood Urine Nitrite Urine Bilirubin Urine Urobilinogen Ur Leukocyte Esterase Urine WBC (Auto) Urine RBC (Auto) Urine Casts (Auto) U Pathogenic Cast Auto U Epithel Cells (Auto) U Sm Round Cell (Auto) Urine Bacteria (Auto) 04/08/19 04/08/19 04/08/19 14:15 16:48 18:45 WBC RBC Hgb Hct MCV MCH MCHC RDW Plt Count MPV Absolute Neuts (auto) Neutrophils % Lymphocytes % Monocytes % Eosinophils % Basophils % Nucleated RBC % Platelet Estimate Platelet Comment Puncture Site ABG pH ABG pCO2 at Pt Temp ABG pO2 at Pt Temp ABG HCO3 ABG O2 Sat (Measured) ABG O2 Content ABG Base Excess Atul Test O2 Delivery Device Oxygen Flow Rate Vent Mode Vent Rate Mechanical Rate PEEP Pressure Support Vent Sodium Potassium Chloride Carbon Dioxide Anion Gap BUN Creatinine Est GFR (CKD-EPI)AfAm Est GFR (CKD-EPI)NonAf POC Glucometer 60 10 Random Glucose Lactic Acid 6.1 H* Calcium Magnesium Total Bilirubin AST ALT Alkaline Phosphatase Troponin I Total Protein Albumin Urine Color Urine Appearance Urine pH Ur Specific [place] Urine Protein Urine Glucose (UA) Urine Ketones Urine Blood Urine Nitrite Urine Bilirubin Urine Urobilinogen Ur Leukocyte Esterase Urine WBC (Auto) Urine RBC (Auto) Urine Casts (Auto) U Pathogenic Cast Auto U Epithel Cells (Auto) U Sm Round Cell (Auto) Urine Bacteria (Auto) 04/08/19 04/08/19 04/08/19 18:54 22:02 22:24 WBC RBC Hgb Hct MCV MCH MCHC RDW Plt Count MPV Absolute Neuts (auto) Neutrophils % Lymphocytes % Monocytes % Eosinophils % Basophils % Nucleated RBC % Platelet Estimate Platelet Comment Puncture Site ABG pH ABG pCO2 at Pt Temp ABG pO2 at Pt Temp ABG HCO3 ABG O2 Sat (Measured) ABG O2 Content ABG Base Excess Atul Test O2 Delivery Device Oxygen Flow Rate Vent Mode Vent Rate Mechanical Rate PEEP Pressure Support Vent Sodium Potassium Chloride Carbon Dioxide Anion Gap BUN Creatinine Est GFR (CKD-EPI)AfAm Est GFR (CKD-EPI)NonAf POC Glucometer 152 52 Random Glucose Lactic Acid Calcium Magnesium Total Bilirubin AST ALT Alkaline Phosphatase Troponin I Total Protein Albumin Urine Color Yellow Urine Appearance Clear Urine pH 7.5 D Ur Specific [place] 1.021 Urine Protein 2+ H Urine Glucose (UA) Trace Urine Ketones Trace H Urine Blood Negative Urine Nitrite Negative Urine Bilirubin Negative Urine Urobilinogen 0.2 Ur Leukocyte Esterase Negative Urine WBC (Auto) 2 Urine RBC (Auto) 2 Urine Casts (Auto) 39 U Pathogenic Cast Auto 0-2 U Epithel Cells (Auto) 6.1 U Sm Round Cell (Auto) Negative Urine Bacteria (Auto) Few 04/08/19 04/08/19 04/08/19 23:30 23:30 23:39 WBC RBC Hgb Hct MCV MCH MCHC RDW Plt Count MPV Absolute Neuts (auto) Neutrophils % Lymphocytes % Monocytes % Eosinophils % Basophils % Nucleated RBC % Platelet Estimate Platelet Comment Puncture Site ABG pH ABG pCO2 at Pt Temp ABG pO2 at Pt Temp ABG HCO3 ABG O2 Sat (Measured) ABG O2 Content ABG Base Excess Atul Test O2 Delivery Device Oxygen Flow Rate Vent Mode Vent Rate Mechanical Rate PEEP Pressure Support Vent Sodium 144 Potassium 2.8 L* Chloride 108 H Carbon Dioxide 30 Anion Gap 6 L BUN 6.6 L Creatinine 0.3 L Est GFR (CKD-EPI)AfAm 155.82 Est GFR (CKD-EPI)NonAf 134.44 POC Glucometer 63 Random Glucose 66 L Lactic Acid 1.0 Calcium 8.0 L Magnesium Total Bilirubin 0.2 AST 26 ALT 16 Alkaline Phosphatase 181 H Troponin I Total Protein 5.8 L Albumin 1.8 L Urine Color Urine Appearance Urine pH Ur Specific [place] Urine Protein Urine Glucose (UA) Urine Ketones Urine Blood Urine Nitrite Urine Bilirubin Urine Urobilinogen Ur Leukocyte Esterase Urine WBC (Auto) Urine RBC (Auto) Urine Casts (Auto) U Pathogenic Cast Auto U Epithel Cells (Auto) U Sm Round Cell (Auto) Urine Bacteria (Auto) 04/09/19 04/09/19 04/09/19 02:24 05:48 05:48 WBC 9.7 RBC 2.57 L Hgb 7.4 L Hct 22.3 L D MCV 86.7 MCH 28.8 MCHC 33.3 RDW 23.8 H Plt Count 476 H D MPV 8.2 Absolute Neuts (auto) 6.8 Neutrophils % 69.9 Lymphocytes % 19.2 D Monocytes % 10.1 Eosinophils % 0.3 D Basophils % 0.5 Nucleated RBC % 0 Platelet Estimate Normal Platelet Comment Present Puncture Site ABG pH ABG pCO2 at Pt Temp ABG pO2 at Pt Temp ABG HCO3 ABG O2 Sat (Measured) ABG O2 Content ABG Base Excess Atul Test O2 Delivery Device Oxygen Flow Rate Vent Mode Vent Rate Mechanical Rate PEEP Pressure Support Vent Sodium 139 Potassium 3.6 Chloride 104 Carbon Dioxide 28 Anion Gap 6 L BUN 7.1 Creatinine 0.3 L Est GFR (CKD-EPI)AfAm 155.82 Est GFR (CKD-EPI)NonAf 134.44 POC Glucometer 181 Random Glucose 348 H Lactic Acid Calcium 7.4 L Magnesium 1.7 L Total Bilirubin 0.3 AST 20 ALT 14 Alkaline Phosphatase 173 H Troponin I Total Protein 5.5 L Albumin 1.7 L Urine Color Urine Appearance Urine pH Ur Specific [place] Urine Protein Urine Glucose (UA) Urine Ketones Urine Blood Urine Nitrite Urine Bilirubin Urine Urobilinogen Ur Leukocyte Esterase Urine WBC (Auto) Urine RBC (Auto) Urine Casts (Auto) U Pathogenic Cast Auto U Epithel Cells (Auto) U Sm Round Cell (Auto) Urine Bacteria (Auto) 04/09/19 04/09/19 06:14 10:54 WBC RBC Hgb Hct MCV MCH MCHC RDW Plt Count MPV Absolute Neuts (auto) Neutrophils % Lymphocytes % Monocytes % Eosinophils % Basophils % Nucleated RBC % Platelet Estimate Platelet Comment Puncture Site ABG pH ABG pCO2 at Pt Temp ABG pO2 at Pt Temp ABG HCO3 ABG O2 Sat (Measured) ABG O2 Content ABG Base Excess Atul Test O2 Delivery Device Oxygen Flow Rate Vent Mode Vent Rate Mechanical Rate PEEP Pressure Support Vent Sodium Potassium Chloride Carbon Dioxide Anion Gap BUN Creatinine Est GFR (CKD-EPI)AfAm Est GFR (CKD-EPI)NonAf POC Glucometer 361 288 Random Glucose Lactic Acid Calcium Magnesium Total Bilirubin AST ALT Alkaline Phosphatase Troponin I Total Protein Albumin Urine Color Urine Appearance Urine pH Ur Specific [place] Urine Protein Urine Glucose (UA) Urine Ketones Urine Blood Urine Nitrite Urine Bilirubin Urine Urobilinogen Ur Leukocyte Esterase Urine WBC (Auto) Urine RBC (Auto) Urine Casts (Auto) U Pathogenic Cast Auto U Epithel Cells (Auto) U Sm Round Cell (Auto) Urine Bacteria (Auto) Active Medications Generic Name Dose Route Start Last Admin Trade Name Freq PRN Reason Stop Dose Admin Acetaminophen 1,000 mg 04/09/19 03:23 04/09/19 05:40 Ofirmev Injection - IVPB 1,000 mg Q6H PRN Administration FEVER Albuterol/Ipratropium 1 amp 04/08/19 18:07 Duoneb - NEB Q6H PRN SHORTNESS OF BREATH Amino Acids 30 ml 04/09/19 10:00 Prosource No Carb Liquid Pkt PO DAILY [facility] Chlorhexidine Gluconate 1 applic 04/08/19 22:00 04/08/19 21:52 Hibiclens For Decolonization - TP 1 applic HS [facility] Administration Chlorhexidine Gluconate 15 ml 04/08/19 22:00 04/09/19 09:42 Peridex - MM 15 ml BID [facility] Administration Dextrose 4 gm 04/08/19 18:07 Glucose Tablet - PO PRN PRN HYPOGLYCEMIA Dextrose 25 gm 04/08/19 18:48 04/08/19 18:45 D50w (Vial) - IVPUSH 04/09/19 18:49 25 gm ONCE [facility] Administration Enoxaparin Sodium 70 mg 04/08/19 22:00 04/09/19 09:37 Lovenox - SQ 70 mg BID [facility] Administration Dextrose/Lactated Ringer's 1,000 mls @ 75 mls/hr 04/08/19 18:07 04/08/19 21: 51 D5-Lr - IV 75 mls/hr ASDIR [facility] Administration Meropenem 1 gm/ Dextrose 100 mls @ 200 mls/hr 04/09/19 02:00 04/09/19 09:36 IVPB 200 mls/hr Q8H-IV [facility] Administration Insulin Aspart 1 vial 04/09/19 03:25 04/09/19 10:56 Novolog Vial Sliding Scale - SQ 4 units Q4HPO [facility] Administration Protocol Morphine Sulfate 2 mg 04/09/19 03:23 Morphine Sulfate IVPUSH Q4H PRN PAIN LEVEL 7 - 10 Mupirocin 1 applic 04/08/19 22:00 04/09/19 09:41 Bactroban Ointment (For Decolonization) - NS 04/13/19 21:59 1 applic BID [facility] Administration Nystatin 1 applic 04/08/19 22:00 04/08/19 21:53 Mycostatin Ointment - TP Not Given BID [facility] Ondansetron HCl 4 mg 04/08/19 18:07 Zofran Injection IVPUSH Q6H PRN NAUSEA AND/OR VOMITING Pantoprazole Sodium 40 mg 04/08/19 22:00 04/09/19 09:43 Protonix Iv IVPUSH 40 mg BID [facility] Administration Vancomycin HCl 125 mg 04/09/19 00:00 04/09/19 05:42 Vancomycin Oral Solution PO Not Given Q6HPO [facility] ASSESSMENT/PLAN: Pt is a 48F PMH Type I IDDM, PE (on Lovenox), frequent admissions for DKA, HTN, HLD, C-Diff, CVA with left-sided weakness, recent hospitalization at [facility] September 2018, sepsis 2/2 bowel perforation s/p laparotomy who was recently in [facility] ICU. Pt well known to ICU team. #Cardio: hx of transient a-fib with RVR -Tachycardic -EKG--Sinus tach, minor t wave changes v5-v6. Unchanged from EKG 03/29. QTc 528. -Maintain MAP > 65. currently not on pressors #Respiratory: Acute respiratory failure -s/p trach and bronchoscopy -Duonebs -vented on AC mode #GI: s/p ex lap for SBO w/ perforation -Currently with wound vac -Surgery on board, will need PEG #Endocrine: DKA - off insulin drip, novolog q4h on D5LR. #I.D.- Possible Sepsis 2/2 Abdominal/Respiratory Source -Pt s/p bowel perforation s/p laparotomy -Rapid Response called on [address] as pt visibly diaphoretic, tachypneic, and tachycardic -STAT CBC, BMP, Lactic Acid, Troponin, CXR, ABG, EKG, UA, urine cx, blood cx -Pt currently on Vancomycin and Merrem -ID on board -Pt w/ C-diff. Continue with PO Vanco per ID #Neuro -neuro consult -subacute CVA seen on head CT today -antiplatelets #F/E/N -D5/LR @ 75cc/hr -Monitor electrolytes -NPO -attempt peripheral access #DVTppx: -Lovenox Dispo: stable for transfer to LTAC Visit type - Emergency Visit Emergency Visit: No - New Patient This patient is new to me today: No - Critical Care Critical Care patient: Yes Total Critical Care Time (in minutes): 35 Critical Care Statement: The care of this patient involved high complexity decision making to prevent further life threatening deterioration of the patient 's condition and/or to evaluate & treat vital organ system(s) failure or risk of failure. ATTENDING PHYSICIAN STATEMENT I saw and evaluated the patient. I reviewed the resident's note and discussed the case with the resident. I agree with the resident's findings and plan as documented. SUBJECTIVE: OBJECTIVE: ASSESSMENT AND PLAN:
[2019-04-09] MEDS: AMINO ACIDS/PROTEIN HYDROLYS 30 ML LIQUID.PKT PO SCH (13:27)
--- NOTE | 2019-04-09 13:31 | PN ---
Progress Note, Physician - Current Medication List Current Medications: Active Medications Acetaminophen (Ofirmev Injection -) 1,000 mg IVPB Q6H PRN PRN Reason: FEVER Last Admin: 04/09/19 13:07 Dose: 1,000 mg Albuterol/Ipratropium (Duoneb -) 1 amp NEB Q6H PRN PRN Reason: SHORTNESS OF BREATH Amino Acids (Prosource No Carb Liquid Pkt) 30 ml PO DAILY [facility] Last Admin: 04/09/19 13:27 Dose: 30 ml Chlorhexidine Gluconate (Hibiclens For Decolonization -) 1 applic TP HS [facility] Last Admin: 04/08/19 21:52 Dose: 1 applic Chlorhexidine Gluconate (Peridex -) 15 ml MM BID [facility] Last Admin: 04/09/19 09:42 Dose: 15 ml Dextrose (Glucose Tablet -) 4 gm PO PRN PRN PRN Reason: HYPOGLYCEMIA Dextrose (D50w (Vial) -) 25 gm IVPUSH ONCE [facility] Stop: 04/09/19 18:49 Last Admin: 04/08/19 18:45 Dose: 25 gm Enoxaparin Sodium (Lovenox -) 70 mg SQ BID [facility] Last Admin: 04/09/19 09:37 Dose: 70 mg Dextrose/Lactated Ringer's (D5-Lr -) 1,000 mls @ 75 mls/hr IV ASDIR [facility] Last Admin: 04/08/19 21:51 Dose: 75 mls/hr Meropenem 1 gm/ Dextrose 100 mls @ 200 mls/hr IVPB Q8H-IV [facility] Last Admin: 04/09/19 09:36 Dose: 200 mls/hr Insulin Aspart (Novolog Vial Sliding Scale -) 1 vial SQ Q4HPO [facility]; Protocol Last Admin: 04/09/19 10:56 Dose: 4 units Insulin Detemir (Levemir Vial) 6 units SQ ONCE ONE Stop: 04/09/19 13:29 Morphine Sulfate (Morphine Sulfate) 2 mg IVPUSH Q4H PRN PRN Reason: PAIN LEVEL 7 - 10 Mupirocin (Bactroban Ointment (For Decolonization) -) 1 applic NS BID [facility] Stop: 04/13/19 21:59 Last Admin: 04/09/19 09:41 Dose: 1 applic Nystatin (Mycostatin Ointment -) 1 applic TP BID [facility] Last Admin: 04/08/19 21:53 Dose: Not Given Ondansetron HCl (Zofran Injection) 4 mg IVPUSH Q6H PRN PRN Reason: NAUSEA AND/OR VOMITING Pantoprazole Sodium (Protonix Iv) 40 mg IVPUSH BID [facility] Last Admin: 04/09/19 09:43 Dose: 40 mg Vancomycin HCl (Vancomycin Oral Solution) 125 mg PO Q6HPO [facility] Last Admin: 04/09/19 13:00 Dose: 125 ml - Objective Vital Signs: Vital Signs Temperature 99.3 F 04/09/19 10:00 Pulse Rate 105 H 04/09/19 12:02 Respiratory Rate 27 H 04/09/19 12:03 Blood Pressure 156/93 04/09/19 12:00 O2 Sat by Pulse Oximetry (%) 98 04/09/19 12:02 Labs: CBC, BMP 04/09/19 05:48 04/09/19 05:48 INR, PTT INR 0.95 (0.83-1.09) 03/26/19 06:00 Fibrinogen 359.0 mg/dL (238-498) 03/19/19 23:15
--- NOTE | 2019-04-09 13:42 | PN ---
Physical Exam: SUBJECTIVE: Patient seen and examined at the bedside. OBJECTIVE: discussed ct head findings with Dr. Mancini (neuro) will start on asa 81mg via ng tube continue lovenox 70 bid will order lipid panel and start on lipitor 40 @ hs lipid panel pending imagin04/09/19. head ct recent acute/subacute infarct - alfa sub. cortex. non hemorrhagic -------- Patient is a 48 year old female admitted for septic shock 08/01 to bowel perforation. she is s/p exp lap with resection of ilial perforation on 03/12. In the past she has had multiple admission for DKA. This hospitalization complicated with multiple episodes of respiratory failure, bacteremia, c-diff, DKA. She also had an episode of pulseless activity on 03/19/19 and was intubated after CPR performed. On 04/08, patient was a rapid response and transferred back to the icu after becoming diaphorectic, tachycardic and tachypnic on trach collar. She is now found to have a new acute/subacute infarct on CT imaging. Vital Signs Period Temp Pulse Resp BP Sys/Rapp Pulse Ox Last 24 Hr 99.3 F-102.5 F 97-139 16-44 113-156/65-93 98-100 GENERAL: anasarca, trach HEAD: Normal with no signs of trauma. left pupil dilated, right pupil brisk more reactive. ENT: Ears normal, nares patent, oropharynx clear without exudates, moist mucous membranes. NECK: Trachea midline, full range of motion, supple. LUNGS: diminished anteriorly HEART: tachycardia 110s ABDOMEN: wound vac EXTREMITIES: anasacra NEUROLOGICAL: eyes open, non responsive, tracking, but confused Laboratory Results - last 24 hr 04/08/19 04/08/19 04/08/19 13:55 14:00 14:15 WBC RBC Hgb Hct MCV MCH MCHC RDW Plt Count MPV Absolute Neuts (auto) Neutrophils % Lymphocytes % Monocytes % Eosinophils % Basophils % Nucleated RBC % Platelet Estimate Platelet Comment Puncture Site Left radial ABG pH 7.39 ABG pCO2 at Pt Temp 33.6 L ABG pO2 at Pt Temp 153 H ABG HCO3 19.9 L ABG O2 Sat (Measured) 99.0 H ABG O2 Content 13.8 ABG Base Excess -3.9 L Atul Test Not applicable O2 Delivery Device Ltv Oxygen Flow Rate 40% Vent Mode A/c Vent Rate 16 Mechanical Rate Ltv PEEP 5.0 Pressure Support Vent 350 Sodium 143 Potassium 3.4 L Chloride 104 Carbon Dioxide 23 Anion Gap 16 BUN 9.4 Creatinine 0.8 Est GFR (CKD-EPI)AfAm 100.33 Est GFR (CKD-EPI)NonAf 86.57 POC Glucometer 296 Random Glucose 319 H Lactic Acid Calcium 8.6 Magnesium Total Bilirubin 0.2 AST 35 ALT 18 Alkaline Phosphatase 224 H Troponin I Total Protein 6.8 Albumin 2.1 L Urine Color Urine Appearance Urine pH Ur Specific [place] Urine Protein Urine Glucose (UA) Urine Ketones Urine Blood Urine Nitrite Urine Bilirubin Urine Urobilinogen Ur Leukocyte Esterase Urine WBC (Auto) Urine RBC (Auto) Urine Casts (Auto) U Pathogenic Cast Auto U Epithel Cells (Auto) U Sm Round Cell (Auto) Urine Bacteria (Auto) 04/08/19 04/08/19 04/08/19 14:15 14:15 14:15 WBC 11.0 H RBC 3.08 L Hgb 8.6 L Hct 27.2 L MCV 88.2 MCH 27.8 MCHC 31.5 L RDW 23.8 H Plt Count 631 H MPV 8.6 D Absolute Neuts (auto) 9.1 H Neutrophils % 83.1 H Lymphocytes % 7.9 L D Monocytes % 8.3 Eosinophils % 0.0 D Basophils % 0.7 Nucleated RBC % 0 Platelet Estimate Platelet Comment Puncture Site ABG pH ABG pCO2 at Pt Temp ABG pO2 at Pt Temp ABG HCO3 ABG O2 Sat (Measured) ABG O2 Content ABG Base Excess Atul Test O2 Delivery Device Oxygen Flow Rate Vent Mode Vent Rate Mechanical Rate PEEP Pressure Support Vent Sodium 143 Potassium 3.4 L Chloride 104 Carbon Dioxide 23 Anion Gap 16 BUN 9.7 Creatinine 0.8 Est GFR (CKD-EPI)AfAm 100.33 Est GFR (CKD-EPI)NonAf 86.57 POC Glucometer Random Glucose 319 H Lactic Acid 6.1 H* Calcium 8.7 Magnesium Total Bilirubin 0.2 AST 37 ALT 18 Alkaline Phosphatase 229 H Troponin I < 0.02 Total Protein 6.7 Albumin 2.1 L Urine Color Urine Appearance Urine pH Ur Specific [place] Urine Protein Urine Glucose (UA) Urine Ketones Urine Blood Urine Nitrite Urine Bilirubin Urine Urobilinogen Ur Leukocyte Esterase Urine WBC (Auto) Urine RBC (Auto) Urine Casts (Auto) U Pathogenic Cast Auto U Epithel Cells (Auto) U Sm Round Cell (Auto) Urine Bacteria (Auto) 04/08/19 04/08/19 04/08/19 16:48 18:45 18:54 WBC RBC Hgb Hct MCV MCH MCHC RDW Plt Count MPV Absolute Neuts (auto) Neutrophils % Lymphocytes % Monocytes % Eosinophils % Basophils % Nucleated RBC % Platelet Estimate Platelet Comment Puncture Site ABG pH ABG pCO2 at Pt Temp ABG pO2 at Pt Temp ABG HCO3 ABG O2 Sat (Measured) ABG O2 Content ABG Base Excess Atul Test O2 Delivery Device Oxygen Flow Rate Vent Mode Vent Rate Mechanical Rate PEEP Pressure Support Vent Sodium Potassium Chloride Carbon Dioxide Anion Gap BUN Creatinine Est GFR (CKD-EPI)AfAm Est GFR (CKD-EPI)NonAf POC Glucometer 60 10 152 Random Glucose Lactic Acid Calcium Magnesium Total Bilirubin AST ALT Alkaline Phosphatase Troponin I Total Protein Albumin Urine Color Urine Appearance Urine pH Ur Specific [place] Urine Protein Urine Glucose (UA) Urine Ketones Urine Blood Urine Nitrite Urine Bilirubin Urine Urobilinogen Ur Leukocyte Esterase Urine WBC (Auto) Urine RBC (Auto) Urine Casts (Auto) U Pathogenic Cast Auto U Epithel Cells (Auto) U Sm Round Cell (Auto) Urine Bacteria (Auto) 04/08/19 04/08/19 04/08/19 22:02 22:24 23:30 WBC RBC Hgb Hct MCV MCH MCHC RDW Plt Count MPV Absolute Neuts (auto) Neutrophils % Lymphocytes % Monocytes % Eosinophils % Basophils % Nucleated RBC % Platelet Estimate Platelet Comment Puncture Site ABG pH ABG pCO2 at Pt Temp ABG pO2 at Pt Temp ABG HCO3 ABG O2 Sat (Measured) ABG O2 Content ABG Base Excess Atul Test O2 Delivery Device Oxygen Flow Rate Vent Mode Vent Rate Mechanical Rate PEEP Pressure Support Vent Sodium Potassium Chloride Carbon Dioxide Anion Gap BUN Creatinine Est GFR (CKD-EPI)AfAm Est GFR (CKD-EPI)NonAf POC Glucometer 52 Random Glucose Lactic Acid 1.0 Calcium Magnesium Total Bilirubin AST ALT Alkaline Phosphatase Troponin I Total Protein Albumin Urine Color Yellow Urine Appearance Clear Urine pH 7.5 D Ur Specific [place] 1.021 Urine Protein 2+ H Urine Glucose (UA) Trace Urine Ketones Trace H Urine Blood Negative Urine Nitrite Negative Urine Bilirubin Negative Urine Urobilinogen 0.2 Ur Leukocyte Esterase Negative Urine WBC (Auto) 2 Urine RBC (Auto) 2 Urine Casts (Auto) 39 U Pathogenic Cast Auto 0-2 U Epithel Cells (Auto) 6.1 U Sm Round Cell (Auto) Negative Urine Bacteria (Auto) Few 04/08/19 04/08/19 04/09/19 23:30 23:39 02:24 WBC RBC Hgb Hct MCV MCH MCHC RDW Plt Count MPV Absolute Neuts (auto) Neutrophils % Lymphocytes % Monocytes % Eosinophils % Basophils % Nucleated RBC % Platelet Estimate Platelet Comment Puncture Site ABG pH ABG pCO2 at Pt Temp ABG pO2 at Pt Temp ABG HCO3 ABG O2 Sat (Measured) ABG O2 Content ABG Base Excess Atul Test O2 Delivery Device Oxygen Flow Rate Vent Mode Vent Rate Mechanical Rate PEEP Pressure Support Vent Sodium 144 Potassium 2.8 L* Chloride 108 H Carbon Dioxide 30 Anion Gap 6 L BUN 6.6 L Creatinine 0.3 L Est GFR (CKD-EPI)AfAm 155.82 Est GFR (CKD-EPI)NonAf 134.44 POC Glucometer 63 181 Random Glucose 66 L Lactic Acid Calcium 8.0 L Magnesium Total Bilirubin 0.2 AST 26 ALT 16 Alkaline Phosphatase 181 H Troponin I Total Protein 5.8 L Albumin 1.8 L Urine Color Urine Appearance Urine pH Ur Specific [place] Urine Protein Urine Glucose (UA) Urine Ketones Urine Blood Urine Nitrite Urine Bilirubin Urine Urobilinogen Ur Leukocyte Esterase Urine WBC (Auto) Urine RBC (Auto) Urine Casts (Auto) U Pathogenic Cast Auto U Epithel Cells (Auto) U Sm Round Cell (Auto) Urine Bacteria (Auto) 04/09/19 04/09/19 04/09/19 05:48 05:48 06:14 WBC 9.7 RBC 2.57 L Hgb 7.4 L Hct 22.3 L D MCV 86.7 MCH 28.8 MCHC 33.3 RDW 23.8 H Plt Count 476 H D MPV 8.2 Absolute Neuts (auto) 6.8 Neutrophils % 69.9 Lymphocytes % 19.2 D Monocytes % 10.1 Eosinophils % 0.3 D Basophils % 0.5 Nucleated RBC % 0 Platelet Estimate Normal Platelet Comment Present Puncture Site ABG pH ABG pCO2 at Pt Temp ABG pO2 at Pt Temp ABG HCO3 ABG O2 Sat (Measured) ABG O2 Content ABG Base Excess Atul Test O2 Delivery Device Oxygen Flow Rate Vent Mode Vent Rate Mechanical Rate PEEP Pressure Support Vent Sodium 139 Potassium 3.6 Chloride 104 Carbon Dioxide 28 Anion Gap 6 L BUN 7.1 Creatinine 0.3 L Est GFR (CKD-EPI)AfAm 155.82 Est GFR (CKD-EPI)NonAf 134.44 POC Glucometer 361 Random Glucose 348 H Lactic Acid Calcium 7.4 L Magnesium 1.7 L Total Bilirubin 0.3 AST 20 ALT 14 Alkaline Phosphatase 173 H Troponin I Total Protein 5.5 L Albumin 1.7 L Urine Color Urine Appearance Urine pH Ur Specific [place] Urine Protein Urine Glucose (UA) Urine Ketones Urine Blood Urine Nitrite Urine Bilirubin Urine Urobilinogen Ur Leukocyte Esterase Urine WBC (Auto) Urine RBC (Auto) Urine Casts (Auto) U Pathogenic Cast Auto U Epithel Cells (Auto) U Sm Round Cell (Auto) Urine Bacteria (Auto) 04/09/19 10:54 WBC RBC Hgb Hct MCV MCH MCHC RDW Plt Count MPV Absolute Neuts (auto) Neutrophils % Lymphocytes % Monocytes % Eosinophils % Basophils % Nucleated RBC % Platelet Estimate Platelet Comment Puncture Site ABG pH ABG pCO2 at Pt Temp ABG pO2 at Pt Temp ABG HCO3 ABG O2 Sat (Measured) ABG O2 Content ABG Base Excess Atul Test O2 Delivery Device Oxygen Flow Rate Vent Mode Vent Rate Mechanical Rate PEEP Pressure Support Vent Sodium Potassium Chloride Carbon Dioxide Anion Gap BUN Creatinine Est GFR (CKD-EPI)AfAm Est GFR (CKD-EPI)NonAf POC Glucometer 288 Random Glucose Lactic Acid Calcium Magnesium Total Bilirubin AST ALT Alkaline Phosphatase Troponin I Total Protein Albumin Urine Color Urine Appearance Urine pH Ur Specific [place] Urine Protein Urine Glucose (UA) Urine Ketones Urine Blood Urine Nitrite Urine Bilirubin Urine Urobilinogen Ur Leukocyte Esterase Urine WBC (Auto) Urine RBC (Auto) Urine Casts (Auto) U Pathogenic Cast Auto U Epithel Cells (Auto) U Sm Round Cell (Auto) Urine Bacteria (Auto) Active Medications Generic Name Dose Route Start Last Admin Trade Name Freq PRN Reason Stop Dose Admin Acetaminophen 1,000 mg 04/09/19 03:23 04/09/19 13:07 Ofirmev Injection - IVPB 1,000 mg Q6H PRN Administration FEVER Albuterol/Ipratropium 1 amp 04/08/19 18:07 Duoneb - NEB Q6H PRN SHORTNESS OF BREATH Amino Acids 30 ml 04/09/19 10:00 04/09/19 13:27 Prosource No Carb Liquid Pkt PO 30 ml DAILY [facility] Administration Aspirin 81 mg 04/09/19 13:45 Ecotrin - PO DAILY [facility] Atorvastatin Calcium 40 mg 04/09/19 22:00 Lipitor - PO HS [facility] Chlorhexidine Gluconate 1 applic 04/08/19 22:00 04/08/19 21:52 Hibiclens For Decolonization - TP 1 applic HS [facility] Administration Chlorhexidine Gluconate 15 ml 04/08/19 22:00 04/09/19 09:42 Peridex - MM 15 ml BID [facility] Administration Dextrose 4 gm 04/08/19 18:07 Glucose Tablet - PO PRN PRN HYPOGLYCEMIA Dextrose 25 gm 04/08/19 18:48 04/08/19 18:45 D50w (Vial) - IVPUSH 04/09/19 18:49 25 gm ONCE [facility] Administration Enoxaparin Sodium 70 mg 04/08/19 22:00 04/09/19 09:37 Lovenox - SQ 70 mg BID [facility] Administration Dextrose/Lactated Ringer's 1,000 mls @ 75 mls/hr 04/08/19 18:07 04/08/19 21: 51 D5-Lr - IV 75 mls/hr ASDIR [facility] Administration Meropenem 1 gm/ Dextrose 100 mls @ 200 mls/hr 04/09/19 02:00 04/09/19 09:36 IVPB 200 mls/hr Q8H-IV [facility] Administration Insulin Aspart 1 vial 04/09/19 18:00 Novolog Vial Sliding Scale - SQ Q6HPO [facility] Protocol Insulin Detemir 6 units 04/09/19 13:28 Levemir Vial SQ 04/09/19 13:29 ONCE ONE Morphine Sulfate 2 mg 04/09/19 03:23 Morphine Sulfate IVPUSH Q4H PRN PAIN LEVEL 7 - 10 Mupirocin 1 applic 04/08/19 22:00 04/09/19 09:41 Bactroban Ointment (For Decolonization) - NS 04/13/19 21:59 1 applic BID [facility] Administration Nystatin 1 applic 04/08/19 22:00 04/08/19 21:53 Mycostatin Ointment - TP Not Given BID [facility] Ondansetron HCl 4 mg 04/08/19 18:07 Zofran Injection IVPUSH Q6H PRN NAUSEA AND/OR VOMITING Pantoprazole Sodium 40 mg 04/08/19 22:00 04/09/19 09:43 Protonix Iv IVPUSH 40 mg BID [facility] Administration Vancomycin HCl 125 mg 04/09/19 00:00 04/09/19 13:00 Vancomycin Oral Solution PO 125 ml Q6HPO [facility] Administration ASSESSMENT/PLAN: Problem List - Problems (1) Cerebrovascular accident (CVA) Assessment/Plan: 04/09/19. head ct recent acute/subacute infarct - alfa sub. cortex. non hemorrhagic discussed with neuro start: asa 81mg dialy via g tube, lipitor 40 via g tube, lipid panel hold swallow eval and PT as patient is unable to participate in both currently per stroke protocol lipid panel pending will order carotid dopplers to be done at bedside, if able to be done at bedside. Code(s): I63.9 - CEREBRAL INFARCTION, UNSPECIFIED Qualifiers: CVA mechanism: unspecified Qualified Code(s): I63.9 - Cerebral infarction, unspecified (2) DKA (diabetic ketoacidoses) Assessment/Plan: insulin drip d/cd, now on long short acting insulin q6, on d5/lr @ 75cc/hr with close monitoring of BGMs. Code(s): E13.10 - OTH DIABETES MELLITUS WITH KETOACIDOSIS WITHOUT COMA Qualifiers: Diabetes mellitus type: type 1 Diabetes mellitus complication detail: without coma Qualified Code(s): E10.10 - Type 1 diabetes mellitus with ketoacidosis without coma (3) Acute respiratory failure Assessment/Plan: patient is s /p trachestomy. patient transferred back to icu for respiratory failure requiring closer acute monitoring. appreciate ICU level of care Code(s): J96.00 - ACUTE RESPIRATORY FAILURE, UNSP W HYPOXIA OR HYPERCAPNIA Qualifiers: Respiratory failure complication: unspecified whether with hypoxia or hypercapnia Qualified Code(s): J96.00 - Acute respiratory failure, unspecified whether with hypoxia or hypercapnia (4) Perforated abdominal viscus Assessment/Plan: s/p Ex-lap/RAYSHAWN/partial SB and omental resection with anastomosis/washout on 03/12 wound dihisecence noted at distal portion, vac in place dressing changes as per surgery on meropenem per ID Code(s): [id number] - (5) Abdominal pain Assessment/Plan: Patient is/p ex-lap/RAYSHAWN/partial SB and omental resection with anastomosis/ washout appreciate surgical and ID consultation Code(s): R10.9 - UNSPECIFIED ABDOMINAL PAIN Qualifiers: Abdominal location: generalized Qualified Code(s): R10.84 - Generalized abdominal pain (6) C. difficile diarrhea Assessment/Plan: Code(s): A04.72 - ENTEROCOLITIS D/T CLOSTRIDIUM DIFFICILE, NOT SPCF RECUR (7) Diabetes Assessment/Plan: brittle diabetic, blood sugars fluctuate. endocrinology following. Code(s): E11.9 - TYPE 2 DIABETES MELLITUS WITHOUT COMPLICATIONS (8) ESBL (extended spectrum beta-lactamase) producing bacteria infection Assessment/Plan: esbl in wound culture. maintain contact precautions. Code(s): A49.9 - BACTERIAL INFECTION, UNSPECIFIED; Z16.12 - EXTENDED SPECTRUM BETA LACTAMASE (ESBL) RESISTANCE (9) HTN (hypertension) Assessment/Plan: ICU monitoring with frequent checks Code(s): I10 - ESSENTIAL (PRIMARY) HYPERTENSION (10) Left-sided weakness Assessment/Plan: chronic left sided weakness. now with edema of both arms and anasarca Code(s): R53.1 - WEAKNESS (11) Acute Crohn's disease Assessment/Plan: lysis of adhesions, segmental resection of small intestinal perforation with side-side stapled anastomosis, abdominal washout, resection of portion of omentum. GI following. Code(s): K50.90 - CROHN'S DISEASE, UNSPECIFIED, WITHOUT COMPLICATIONS (12) Anemia Assessment/Plan: s/p 2 units of prbc. monitor cbc daily Code(s): D64.9 - ANEMIA, UNSPECIFIED (13) Respiratory failure Code(s): J96.90 - RESPIRATORY FAILURE, UNSP, UNSP W HYPOXIA OR HYPERCAPNIA (14) Prophylactic measure Assessment/Plan: NPO monitor electrolytes, ngt feeds DVT on lovenox full dose Dispo requires ICU care full code Code(s): Z29.9 - ENCOUNTER FOR PROPHYLACTIC MEASURES, UNSPECIFIED Visit type - Emergency Visit Emergency Visit: Yes ED Registration Date: 03/09/19 Care time: The patient presented to the Emergency Department on the above date and was hospitalized for further evaluation of their emergent condition. - New Patient This patient is new to me today: No - Critical Care Critical Care patient: Yes Total Critical Care Time (in minutes): 45 Critical Care Statement: The care of this patient involved high complexity decision making to prevent further life threatening deterioration of the patient 's condition and/or to evaluate & treat vital organ system(s) failure or risk of failure.
[2019-04-09] MEDS ORDERED: INSULIN (LEVEMIR) 100 UNITS/ML UNITS SQ ONE (13:45)
[2019-04-09] MEDS: NYSTATIN 100000 UNIT/GM TOPICAL OINTMENT 15 GM TUBE TP SCH ×2 (15:00→21:14)
[2019-04-09 15:39] VITALS: BMI 21.9
--- NOTE | 2019-04-09 16:31 | PN ---
Progress Note (short form) - Note Progress Note: NEUROSURGERY Care d/w Dr Mancini Not physically available today Head CT from yesterday and from July 2018 reviewed Pt with multiple medical issues and small bowel perforation and possible hypotensive/hypoxemic episode Labs reviewed CT head- acute-subacute L MCA (putamen and insular, centrum semiovale and parietal cortical-subcortical infarct not present on prior -2018 CT. Chronic R MCA infarct. Minimal L cortical mass effect. No midline shift. No HCP. No neurosurgical intervention indicated nor recommended Such ischemic strokes should generally be managed medically by consulting neurologist
[2019-04-09] MEDS ORDERED: PT OWN MED DRAWER 7, Y5N ONE (17:13)
[2019-04-09] MEDS: ASPIRIN COATED 81 MG TABLET.EC PO SCH (17:23)
--- NOTE | 2019-04-09 20:49 | PN ---
Progress Note, Physician Chief Complaint: Abdominal Pain History of Present Illness: 48yo female PMH HTN, CVA (left sided hemiparesis), HLD, IDDM, DKA resulting in multiple admissions, dysphagia, gastroparesis, esophageal stricture (EGD 02/14), c/diff (10/2018), SBO September 2018 (s/p SB resection at [facility] as per pt report) presented to [place] ED on the afternoon of 12/21 with complaints of N/V/D/ abd pain intermittently for years. She is clinically improved but can not yet bee weened. Continues to spike high fevers - Current Medication List Current Medications: Active Medications Acetaminophen (Ofirmev Injection -) 1,000 mg IVPB Q6H PRN PRN Reason: FEVER Last Admin: 04/09/19 13:07 Dose: 1,000 mg Albuterol/Ipratropium (Duoneb -) 1 amp NEB Q6H PRN PRN Reason: SHORTNESS OF BREATH Amino Acids (Prosource No Carb Liquid Pkt) 30 ml PO DAILY [facility] Last Admin: 04/09/19 13:27 Dose: 30 ml Aspirin (Ecotrin -) 81 mg PO DAILY [facility] Last Admin: 04/09/19 17:23 Dose: 81 mg Atorvastatin Calcium (Lipitor -) 40 mg PO HS [facility] Chlorhexidine Gluconate (Hibiclens For Decolonization -) 1 applic TP HS [facility] Last Admin: 04/08/19 21:52 Dose: 1 applic Chlorhexidine Gluconate (Peridex -) 15 ml MM BID [facility] Last Admin: 04/09/19 09:42 Dose: 15 ml Dextrose (Glucose Tablet -) 4 gm PO PRN PRN PRN Reason: HYPOGLYCEMIA Enoxaparin Sodium (Lovenox -) 70 mg SQ BID [facility] Last Admin: 04/09/19 09:37 Dose: 70 mg Dextrose/Lactated Ringer's (D5-Lr -) 1,000 mls @ 75 mls/hr IV ASDIR [facility] Last Admin: 04/08/19 21:51 Dose: 75 mls/hr Meropenem 1 gm/ Dextrose 100 mls @ 200 mls/hr IVPB Q8H-IV [facility] Last Admin: 04/09/19 17:24 Dose: 200 mls/hr Insulin Aspart (Novolog Vial Sliding Scale -) 1 vial SQ Q6HPO [facility]; Protocol Last Admin: 04/09/19 17:20 Dose: 4 units Morphine Sulfate (Morphine Sulfate) 2 mg IVPUSH Q4H PRN PRN Reason: PAIN LEVEL 7 - 10 Mupirocin (Bactroban Ointment (For Decolonization) -) 1 applic NS BID [facility] Stop: 04/13/19 21:59 Last Admin: 04/09/19 09:41 Dose: 1 applic Nystatin (Mycostatin Ointment -) 1 applic TP BID [facility] Last Admin: 04/09/19 15:00 Dose: 1 applic Ondansetron HCl (Zofran Injection) 4 mg IVPUSH Q6H PRN PRN Reason: NAUSEA AND/OR VOMITING Pantoprazole Sodium (Protonix Iv) 40 mg IVPUSH BID [facility] Last Admin: 04/09/19 09:43 Dose: 40 mg Vancomycin HCl (Vancomycin Oral Solution) 125 mg PO Q6HPO [facility] Last Admin: 04/09/19 17:23 Dose: 125 ml - Objective Vital Signs: Vital Signs Temperature 99.5 F 04/09/19 18:00 Pulse Rate 105 H 04/09/19 18:00 Respiratory Rate 25 H 04/09/19 20:10 Blood Pressure 136/85 04/09/19 18:00 O2 Sat by Pulse Oximetry (%) 98 04/09/19 12:02 Vital Signs Period Temp Pulse Resp BP Sys/Rapp Pulse Ox Last 24 Hr 98.5 F-101.3 F 83-109 20-30 113-156/65-93 97-100 Intake & Output 04/09/19 04/10/19 04/10/19 23:59 07:59 15:59 Intake Total 1150 Output Total 200 600 Balance 950 -600 Weight 127 lb 1 oz Intake: IV 750 D5-Lr - 1,000 ml @ 75 mls 750 /hr IV ASDIR [facility] Rx#: [id number] IVPB 300 Tube Irrigant 100 Output: Drainage 200 Medial Abdomen 200 Urine 600 Lott 600 Other: Voiding Method Indwelling Catheter Bowel Movement No Yes Weight Measurement Method Built in [facility] 04/08/19 16:25 Blood Culture - Preliminary Blood - Peripheral Venous NO GROWTH OBTAINED AFTER 24 HOURS, INCUBATION TO CONTINUE FOR 4 DAYS. 04/08/19 16:25 Blood Culture - Preliminary Blood - Peripheral Venous NO GROWTH OBTAINED AFTER 24 HOURS, INCUBATION TO CONTINUE FOR 4 DAYS. Constitutional: Yes: No Distress, Calm, Cachectic, Thin Eyes: Yes: Conjunctiva Clear, EOM Intact HENT: Yes: Atraumatic, Normocephalic Neck: Yes: Supple, Trachea Midline Cardiovascular: Yes: Regular Rate and Rhythm, S1, S2 Respiratory: Yes: Regular, Diminished, On Venti-Mask, Other (tracheostyomy) Gastrointestinal: Yes: Normal Bowel Sounds, Soft. No: Tenderness, Tenderness, Epigastrium ...Rectal Exam: Yes: Deferred Genitourinary: No: CVA Tenderness - Left, CVA Tenderness - Right Musculoskeletal: No: Muscle Pain, Muscle Weakness Extremities: No: Cool, Cyanosis Edema: Yes Edema: LUE: 2+, RUE: 2+, LLE: 2+, RLE: 2+ Peripheral Pulses WNL: Yes Peripheral Pulses: Left Radial: 2+, Right Radial: 2+, Left Doralis Pedis: 2+, Right Dorsalis Pedis: 2+, Left Femoral: 2+, Right Femoral: 2+ Neurological: Yes: Alert. No: Oriented Psychiatric: Yes: Alert. No: Oriented Labs: CBC, BMP 04/09/19 05:48 04/09/19 05:48 INR, PTT INR 0.95 (0.83-1.09) 03/26/19 06:00 Fibrinogen 359.0 mg/dL (238-498) 03/19/19 23:15 Problem List - Problems (1) Small bowel obstruction Assessment/Plan: 48yo female with MMP including SBO, chronic constipation, Gastroparesis and crohns disease presenting with Abdominal pain. She has several possible explanations for this pain. POD#29 Exp Lap and Segmental resection of small intestinal perforation. Poor saturation and hospital acquired infections ESBL and Cdiff. Intubated overnight. GIB now improved H&H following transfusion. respiratory status is improving. Monitored Setting ICU management VAC dressing changed, due 04/13 Antibiotics per ID Transfuse as need crohns management will follow This patient is critically ill. Time spent reviewing chart, examining patient, talking with providers and/or family and documentation is 35 minutes. Code(s): K56.609 - UNSP INTESTNL OBST, UNSP TO PARTIAL VERSUS COMPLETE OBST (2) Abdominal pain Code(s): R10.9 - UNSPECIFIED ABDOMINAL PAIN Qualifiers: Abdominal location: generalized Qualified Code(s): R10.84 - Generalized abdominal pain (3) Crohn's disease Code(s): K50.90 - CROHN'S DISEASE, UNSPECIFIED, WITHOUT COMPLICATIONS Qualifiers: Gastrointestinal tract location: small intestine Digestive disease complication type: with rectal bleeding Qualified Code(s): K50.011 - Crohn's disease of small intestine with rectal bleeding (4) DKA (diabetic ketoacidoses) Code(s): E13.10 - OTH DIABETES MELLITUS WITH KETOACIDOSIS WITHOUT COMA Qualifiers: Diabetes mellitus type: type 1 Diabetes mellitus complication detail: without coma Qualified Code(s): E10.10 - Type 1 diabetes mellitus with ketoacidosis without coma (5) Nausea & vomiting Code(s): R11.2 - NAUSEA WITH VOMITING, UNSPECIFIED Qualifiers: Vomiting type: cyclical vomiting Vomiting Intractability: intractable (6) Cerebrovascular accident (CVA) Code(s): I63.9 - CEREBRAL INFARCTION, UNSPECIFIED Qualifiers: CVA mechanism: unspecified Qualified Code(s): I63.9 - Cerebral infarction, unspecified
[2019-04-09] MEDS: DEXTROSE 5%-LACTATED RINGERS 1,000 ML IV SCH (21:03)
[2019-04-09] MEDS: CHLORHEXIDINE GLUCONATE 4% CLEANSER FOR DECOLONIZATION TP SCH (21:04)
[2019-04-09] MEDS: ATORVASTATIN CA 40 MG TABLET (FP) PO SCH (21:04)
[2019-04-09] MEDS ORDERED: DEXTROSE 50%-WATER 25 GM/50 ML DISP.SYRIN ONE (21:33)
[2019-04-09] MEDS: DEXTROSE 50%-WATER - 25 GM/50 ML VIAL IVPUSH SCH (21:34)
[2019-04-10] MEDS ORDERED: DEXTROSE 5%-WATER 100 ML IVPB ONE ×3 (02:56→17:27)
[2019-04-10] MEDS ORDERED: MEROPENEM 1 GM VIAL (RESTRICTED TO ID) IVPB ONE ×3 (02:56→17:27)
[2019-04-10] MEDS ORDERED: PT OWN MED DRAWER 7, Y5N ONE ×3 (02:57→22:52)
[2019-04-10] MEDS: MEROPENEM 1 GM in DEXTROSE 5%-WATER 100 ML IVPB SCH ×3 (03:02→17:30)
[2019-04-10] MEDS: VANCOMYCIN 250 MG/5 ML ORAL SOLUTION PO SCH ×4 (03:02→17:31)
[2019-04-10] MEDS: INSULIN SLIDING SCALE (NOVOLOG) 1 VIAL SQ SCH ×4 (07:35→17:30)
[2019-04-10 08:14] LABS: ALBUMIN 1.8 g/dl (3.4-5.0); BILIRUBIN,TOTAL 0.3 mg/dL (0.2-1); BLOOD UREA NITROGEN 6.8 mg/dL (7-18); CALCIUM 7.7 mg/dL (8.5-10.1); CREATININE 0.3 mg/dL (0.55-1.3); MAGNESIUM 1.7 mg/dL (1.8-2.4); POTASSIUM 3.1 mmol/L (3.5-5.1); TOT PROT 5.5 g/dl (6.4-8.2)
[2019-04-10 08:18] LABS: BASO % 0.4 % (0-2.0); EOS % 0.8 % (0-4.5); HEMATOCRIT 24.8 % (32.4-45.2); LYMPH % 21.3 % (8-40); MCH 28.1 pg (25.7-33.7); MCHC 32.3 g/dl (32.0-36.0); MEAN CELL VOLUME 87.1 fl (80-96); MEAN PLT VOLUME 8.3 fl (7.5-11.1); MONO % 11.5 % (3.8-10.2); PLATELET COUNT 514 K/MM3 (134-434); RBC 2.84 M/mm3 (3.60-5.2); RDW 23.6 % (11.6-15.6); WHITE BLOOD COUNT 9.3 K/mm3 (4.0-10.0)
[2019-04-10] MEDS: ASPIRIN COATED 81 MG TABLET.EC PO SCH (09:46)
[2019-04-10] MEDS: MUPIROCIN 2% TOPICAL OINTMENT FOR DECOLONIZATION NS SCH ×2 (09:46→21:55)
[2019-04-10] MEDS: ENOXAPARIN NA (PORCINE) 80 MG/0.8 ML DISP.SYRIN SQ SCH ×2 (09:46→21:52)
[2019-04-10] MEDS: CHLORHEXIDINE GLUCONATE 0.12% 15ML CUP MM SCH ×2 (09:54→21:52)
[2019-04-10] MEDS: PANTOPRAZOLE SODIUM 40 MG VIAL IVPUSH SCH ×2 (09:54→21:52)
[2019-04-10] MEDS: AMINO ACIDS/PROTEIN HYDROLYS 30 ML LIQUID.PKT PO SCH (09:54)
--- NOTE | 2019-04-10 10:33 | PN ---
Teaching Attending Note Name of Resident: Bong Honeycutt ATTENDING PHYSICIAN STATEMENT I saw and evaluated the patient. I reviewed the resident's note and discussed the case with the resident. I agree with the resident's findings and plan as documented. SUBJECTIVE: Patient seen and examined in the ICU. Eyes are open and tracking. Does not follow commands. AC Mode of vent. Intake & Output 04/07/19 04/08/19 04/09/19 04/10/19 23:59 23:59 23:59 23:59 Intake Total 2280 1875 2650 Output Total 3400 3700 1895 600 Balance -1120 -1825 755 -600 Weight 112 lb 6.4 oz 145 lb 9.6 oz 124 lb 3.2 oz 127 lb 1 oz Last Vital Signs Temp Pulse Resp BP Pulse Ox 98.5 F 93 H 28 H 133/76 100 04/10/19 06:00 04/10/19 06:00 04/10/19 06:00 04/10/19 06:00 04/09/19 21:00 Active Medications Acetaminophen (Ofirmev Injection -) 1,000 mg IVPB Q6H PRN PRN Reason: FEVER Last Admin: 04/09/19 13:07 Dose: 1,000 mg Albuterol/Ipratropium (Duoneb -) 1 amp NEB Q6H PRN PRN Reason: SHORTNESS OF BREATH Amino Acids (Prosource No Carb Liquid Pkt) 30 ml PO DAILY [facility] Last Admin: 04/10/19 09:54 Dose: 30 ml Aspirin (Ecotrin -) 81 mg PO DAILY [facility] Last Admin: 04/10/19 09:46 Dose: 81 mg Atorvastatin Calcium (Lipitor -) 40 mg PO HS [facility] Last Admin: 04/09/19 21:04 Dose: 40 mg Chlorhexidine Gluconate (Hibiclens For Decolonization -) 1 applic TP HS [facility] Last Admin: 04/09/19 21:04 Dose: 1 applic Chlorhexidine Gluconate (Peridex -) 15 ml MM BID [facility] Last Admin: 04/10/19 09:54 Dose: 15 ml Dextrose (Glucose Tablet -) 4 gm PO PRN PRN PRN Reason: HYPOGLYCEMIA Enoxaparin Sodium (Lovenox -) 70 mg SQ BID [facility] Last Admin: 04/10/19 09:46 Dose: 70 mg Dextrose/Lactated Ringer's (D5-Lr -) 1,000 mls @ 75 mls/hr IV ASDIR [facility] Last Admin: 04/09/19 21:03 Dose: 75 mls/hr Meropenem 1 gm/ Dextrose 100 mls @ 200 mls/hr IVPB Q8H-IV [facility] Last Admin: 04/10/19 09:47 Dose: 200 mls/hr Insulin Aspart (Novolog Vial Sliding Scale -) 1 vial SQ Q6HPO [facility]; Protocol Last Admin: 04/10/19 07:35 Dose: 4 units Morphine Sulfate (Morphine Sulfate) 2 mg IVPUSH Q4H PRN PRN Reason: PAIN LEVEL 7 - 10 Mupirocin (Bactroban Ointment (For Decolonization) -) 1 applic NS BID [facility] Stop: 04/13/19 21:59 Last Admin: 04/10/19 09:46 Dose: 1 applic Nystatin (Mycostatin Ointment -) 1 applic TP BID [facility] Last Admin: 04/09/19 21:14 Dose: 1 applic Ondansetron HCl (Zofran Injection) 4 mg IVPUSH Q6H PRN PRN Reason: NAUSEA AND/OR VOMITING Pantoprazole Sodium (Protonix Iv) 40 mg IVPUSH BID [facility] Last Admin: 04/10/19 09:54 Dose: 40 mg Vancomycin HCl (Vancomycin Oral Solution) 125 mg PO Q6HPO [facility] Last Admin: 04/10/19 07:32 Dose: 125 mg GENERAL: Awake, tracking, NAD HEAD: Normal with no signs of trauma. EYES: EOMI Sclera Clear EARS, NOSE, THROAT: MMM NECK: Supple, Trached LUNGS: Vented, decreased Breath sounds at bases HEART: S1S2 ABDOMEN: Wound Vac, ND, No facial grimacing to palpation LOWER EXTREMITIES: SCDs, No CCE NEUROLOGICAL: Moves all extremities, unable to follow commands Laboratory Results - last 24 hr 03/17/19 03/17/19 03/17/19 05:20 05:20 05:20 WBC 16.2 H RBC 3.60 Hgb 8.7 L Hct 27.2 L MCV 75.4 L MCH 24.0 L MCHC 31.9 L RDW 24.5 H Plt Count 150 D MPV 9.4 Absolute Neuts (auto) 14.6 H Total Counted Neutrophils % 89.6 H Neutrophils % (Manual) 94.0 H Band Neutrophils % 3.0 Lymphocytes % 8.4 D Lymphocytes % (Manual) 2.0 L D Monocytes % 1.6 L Monocytes % (Manual) 0 L D Eosinophils % 0.3 D Eosinophils % (Manual) 0.0 D Basophils % 0.1 Basophils % (Manual) 0.0 Myelocytes % (Man) 0 D Promyelocytes % (Man) 0 Blast Cells % (Manual) 0 Nucleated RBC % 1 H Metamyelocytes 0 Hypochromia 1+ Toxic Granulation Platelet Estimate Decreased Platelet Comment Polychromasia 0 Poikilocytosis 1+ Anisocytosis 1+ Microcytosis 1+ Macrocytosis 0 Spherocytes Target Cells 1+ Tear Drop Cells Ovalocytes 1+ [place] Cells Schistocytes PT with INR INR PTT (Actin FS) 24.9 L Fibrinogen Puncture Site ABG pH ABG pCO2 at Pt Temp ABG pO2 at Pt Temp ABG HCO3 ABG O2 Sat (Measured) ABG O2 Content ABG Base Excess Atul Test O2 Delivery Device Oxygen Flow Rate Vent Mode Vent Rate PEEP Pressure Support Vent Sodium 141 Potassium 3.8 Chloride 109 H Carbon Dioxide 22 Anion Gap 10 BUN 13.0 Creatinine 0.4 L Est GFR (CKD-EPI)AfAm 141.75 Est GFR (CKD-EPI)NonAf 122.30 POC Glucometer Random Glucose 244 H Lactic Acid Calcium 6.4 L* Phosphorus 1.0 L* Magnesium 1.8 Iron TIBC Iron Saturation Unsaturated IBC Ferritin Total Bilirubin 0.3 AST 24 ALT 10 L Alkaline Phosphatase 145 H Creatine Kinase Troponin I Total Protein 4.0 L Albumin 1.2 L Prealbumin Triglycerides Cholesterol Total LDL Cholesterol HDL Cholesterol Beta-Hydroxybutyrate Urine Color Urine Appearance Urine pH Ur Specific [place] Urine Protein Urine Glucose (UA) Urine Ketones Urine Blood Urine Nitrite Urine Bilirubin Urine Urobilinogen Ur Leukocyte Esterase Urine WBC (Auto) Urine RBC (Auto) U Epithel Cells (Auto) Urine Bacteria (Auto) Stool Occult Blood Acetone, Qual B-Hydroxybutyrate 03/17/19 03/17/19 03/17/19 05:29 12:19 17:43 WBC RBC Hgb Hct MCV MCH MCHC RDW Plt Count MPV Absolute Neuts (auto) Total Counted Neutrophils % Neutrophils % (Manual) Band Neutrophils % Lymphocytes % Lymphocytes % (Manual) Monocytes % Monocytes % (Manual) Eosinophils % Eosinophils % (Manual) Basophils % Basophils % (Manual) Myelocytes % (Man) Promyelocytes % (Man) Blast Cells % (Manual) Nucleated RBC % Metamyelocytes Hypochromia Toxic Granulation Platelet Estimate Platelet Comment Polychromasia Poikilocytosis Anisocytosis Microcytosis Macrocytosis Spherocytes Target Cells Tear Drop Cells Ovalocytes [place] Cells Schistocytes PT with INR INR PTT (Actin FS) Fibrinogen Puncture Site ABG pH ABG pCO2 at Pt Temp ABG pO2 at Pt Temp ABG HCO3 ABG O2 Sat (Measured) ABG O2 Content ABG Base Excess Atul Test O2 Delivery Device Oxygen Flow Rate Vent Mode Vent Rate PEEP Pressure Support Vent Sodium Potassium Chloride Carbon Dioxide Anion Gap BUN Creatinine Est GFR (CKD-EPI)AfAm Est GFR (CKD-EPI)NonAf POC Glucometer 229 156 168 Random Glucose Lactic Acid Calcium Phosphorus Magnesium Iron TIBC Iron Saturation Unsaturated IBC Ferritin Total Bilirubin AST ALT Alkaline Phosphatase Creatine Kinase Troponin I Total Protein Albumin Prealbumin Triglycerides Cholesterol Total LDL Cholesterol HDL Cholesterol Beta-Hydroxybutyrate Urine Color Urine Appearance Urine pH Ur Specific [place] Urine Protein Urine Glucose (UA) Urine Ketones Urine Blood Urine Nitrite Urine Bilirubin Urine Urobilinogen Ur Leukocyte Esterase Urine WBC (Auto) Urine RBC (Auto) U Epithel Cells (Auto) Urine Bacteria (Auto) Stool Occult Blood Acetone, Qual B-Hydroxybutyrate 03/17/19 03/18/19 03/18/19 21:43 05:30 05:30 WBC 7.8 RBC 3.66 Hgb 9.0 L Hct 27.7 L MCV 75.6 L MCH 24.5 L MCHC 32.4 RDW 24.3 H Plt Count 114 L D MPV 9.5 Absolute Neuts (auto) 6.2 Total Counted Neutrophils % 79.9 Neutrophils % (Manual) 76.0 Band Neutrophils % 5.0 Lymphocytes % 16.8 D Lymphocytes % (Manual) 12.0 D Monocytes % 1.8 L Monocytes % (Manual) 0 L Eosinophils % 1.2 D Eosinophils % (Manual) 2.0 D Basophils % 0.3 Basophils % (Manual) 0.0 Myelocytes % (Man) 0 Promyelocytes % (Man) 0 Blast Cells % (Manual) 0 Nucleated RBC % 0 Metamyelocytes 1 D Hypochromia 1+ Toxic Granulation 2+ Platelet Estimate Decreased Platelet Comment Present Polychromasia 1+ Poikilocytosis 1+ Anisocytosis 2+ Microcytosis 1+ Macrocytosis 0 Spherocytes 1+ Target Cells 1+ Tear Drop Cells 1+ Ovalocytes [place] Cells 1+ Schistocytes PT with INR INR PTT (Actin FS) 27.1 Fibrinogen Puncture Site ABG pH ABG pCO2 at Pt Temp ABG pO2 at Pt Temp ABG HCO3 ABG O2 Sat (Measured) ABG O2 Content ABG Base Excess Atul Test O2 Delivery Device Oxygen Flow Rate Vent Mode Vent Rate PEEP Pressure Support Vent Sodium Potassium Chloride Carbon Dioxide Anion Gap BUN Creatinine Est GFR (CKD-EPI)AfAm Est GFR (CKD-EPI)NonAf POC Glucometer 89 Random Glucose Lactic Acid Calcium Phosphorus Magnesium Iron TIBC Iron Saturation Unsaturated IBC Ferritin Total Bilirubin AST ALT Alkaline Phosphatase Creatine Kinase Troponin I Total Protein Albumin Prealbumin Triglycerides Cholesterol Total LDL Cholesterol HDL Cholesterol Beta-Hydroxybutyrate Urine Color Urine Appearance Urine pH Ur Specific [place] Urine Protein Urine Glucose (UA) Urine Ketones Urine Blood Urine Nitrite Urine Bilirubin Urine Urobilinogen Ur Leukocyte Esterase Urine WBC (Auto) Urine RBC (Auto) U Epithel Cells (Auto) Urine Bacteria (Auto) Stool Occult Blood Acetone, Qual B-Hydroxybutyrate 03/18/19 03/18/19 03/18/19 05:30 05:42 10:53 WBC RBC Hgb Hct MCV MCH MCHC RDW Plt Count MPV Absolute Neuts (auto) Total Counted Neutrophils % Neutrophils % (Manual) Band Neutrophils % Lymphocytes % Lymphocytes % (Manual) Monocytes % Monocytes % (Manual) Eosinophils % Eosinophils % (Manual) Basophils % Basophils % (Manual) Myelocytes % (Man) Promyelocytes % (Man) Blast Cells % (Manual) Nucleated RBC % Metamyelocytes Hypochromia Toxic Granulation Platelet Estimate Platelet Comment Polychromasia Poikilocytosis Anisocytosis Microcytosis Macrocytosis Spherocytes Target Cells Tear Drop Cells Ovalocytes [place] Cells Schistocytes PT with INR INR PTT (Actin FS) Fibrinogen Puncture Site ABG pH ABG pCO2 at Pt Temp ABG pO2 at Pt Temp ABG HCO3 ABG O2 Sat (Measured) ABG O2 Content ABG Base Excess Atul Test O2 Delivery Device Oxygen Flow Rate Vent Mode Vent Rate PEEP Pressure Support Vent Sodium 143 Potassium 3.1 L Chloride 107 Carbon Dioxide 24 Anion Gap 11 BUN 9.0 Creatinine 0.4 L Est GFR (CKD-EPI)AfAm 141.75 Est GFR (CKD-EPI)NonAf 122.30 POC Glucometer 201 169 Random Glucose 218 H Lactic Acid Calcium 6.5 L* Phosphorus 1.6 L Magnesium 1.5 L Iron TIBC Iron Saturation Unsaturated IBC Ferritin Total Bilirubin 0.5 AST 28 ALT 8 L Alkaline Phosphatase 276 H Creatine Kinase Troponin I Total Protein 3.9 L Albumin 1.2 L Prealbumin Triglycerides Cholesterol Total LDL Cholesterol HDL Cholesterol Beta-Hydroxybutyrate Urine Color Urine Appearance Urine pH Ur Specific [place] Urine Protein Urine Glucose (UA) Urine Ketones Urine Blood Urine Nitrite Urine Bilirubin Urine Urobilinogen Ur Leukocyte Esterase Urine WBC (Auto) Urine RBC (Auto) U Epithel Cells (Auto) Urine Bacteria (Auto) Stool Occult Blood Acetone, Qual B-Hydroxybutyrate 03/18/19 03/18/19 03/18/19 17:00 17:14 23:04 WBC RBC Hgb Hct MCV MCH MCHC RDW Plt Count MPV Absolute Neuts (auto) Total Counted Neutrophils % Neutrophils % (Manual) Band Neutrophils % Lymphocytes % Lymphocytes % (Manual) Monocytes % Monocytes % (Manual) Eosinophils % Eosinophils % (Manual) Basophils % Basophils % (Manual) Myelocytes % (Man) Promyelocytes % (Man) Blast Cells % (Manual) Nucleated RBC % Metamyelocytes Hypochromia Toxic Granulation Platelet Estimate Platelet Comment Polychromasia Poikilocytosis Anisocytosis Microcytosis Macrocytosis Spherocytes Target Cells Tear Drop Cells Ovalocytes [place] Cells Schistocytes PT with INR INR PTT (Actin FS) Fibrinogen Puncture Site ABG pH ABG pCO2 at Pt Temp ABG pO2 at Pt Temp ABG HCO3 ABG O2 Sat (Measured) ABG O2 Content ABG Base Excess Atul Test O2 Delivery Device Oxygen Flow Rate Vent Mode Vent Rate PEEP Pressure Support Vent Sodium 145 Potassium 3.0 L Chloride 107 Carbon Dioxide 19 L Anion Gap 18 H BUN 6.8 L Creatinine 0.3 L Est GFR (CKD-EPI)AfAm 155.82 Est GFR (CKD-EPI)NonAf 134.44 POC Glucometer 299 185 Random Glucose 303 H Lactic Acid Calcium 6.7 L* Phosphorus 3.5 Magnesium 2.0 Iron TIBC Iron Saturation Unsaturated IBC Ferritin Total Bilirubin AST ALT Alkaline Phosphatase Creatine Kinase Troponin I Total Protein Albumin Prealbumin Triglycerides Cholesterol Total LDL Cholesterol HDL Cholesterol Beta-Hydroxybutyrate Urine Color Urine Appearance Urine pH Ur Specific [place] Urine Protein Urine Glucose (UA) Urine Ketones Urine Blood Urine Nitrite Urine Bilirubin Urine Urobilinogen Ur Leukocyte Esterase Urine WBC (Auto) Urine RBC (Auto) U Epithel Cells (Auto) Urine Bacteria (Auto) Stool Occult Blood Acetone, Qual B-Hydroxybutyrate 03/19/19 03/19/19 03/19/19 05:00 05:00 05:00 WBC 8.0 RBC 3.37 L Hgb 8.3 L Hct 25.8 L MCV 76.5 L MCH 24.7 L MCHC 32.3 RDW 24.0 H Plt Count 94 L MPV 10.2 Absolute Neuts (auto) 6.9 Total Counted Neutrophils % 87.4 H Neutrophils % (Manual) 81.6 Band Neutrophils % 0.0 Lymphocytes % 9.3 D Lymphocytes % (Manual) 10.2 Monocytes % 1.8 L Monocytes % (Manual) 2 L D Eosinophils % 0.8 Eosinophils % (Manual) 2.1 Basophils % 0.7 Basophils % (Manual) 0.0 Myelocytes % (Man) 0 Promyelocytes % (Man) 0 Blast Cells % (Manual) 0 Nucleated RBC % 0 Metamyelocytes 3 H D Hypochromia 0 Toxic Granulation Platelet Estimate Decreased Platelet Comment Polychromasia 1+ Poikilocytosis 2+ Anisocytosis 1+ Microcytosis 1+ Macrocytosis 0 Spherocytes Target Cells Tear Drop Cells Ovalocytes 1+ [place] Cells Schistocytes 1+ PT with INR INR PTT (Actin FS) 30.7 Fibrinogen Puncture Site ABG pH ABG pCO2 at Pt Temp ABG pO2 at Pt Temp ABG HCO3 ABG O2 Sat (Measured) ABG O2 Content ABG Base Excess Atul Test O2 Delivery Device Oxygen Flow Rate Vent Mode Vent Rate PEEP Pressure Support Vent Sodium 144 Potassium 2.7 L* Chloride 106 Carbon Dioxide 19 L Anion Gap 18 H BUN 6.8 L Creatinine 0.4 L Est GFR (CKD-EPI)AfAm 141.75 Est GFR (CKD-EPI)NonAf 122.30 POC Glucometer Random Glucose 335 H Lactic Acid Calcium 6.5 L* Phosphorus 1.7 L Magnesium 1.7 L Iron TIBC Iron Saturation Unsaturated IBC Ferritin Total Bilirubin 0.4 AST 34 ALT 10 L Alkaline Phosphatase 363 H Creatine Kinase Troponin I Total Protein 4.1 L Albumin 1.2 L Prealbumin Triglycerides Cholesterol Total LDL Cholesterol HDL Cholesterol Beta-Hydroxybutyrate Urine Color Urine Appearance Urine pH Ur Specific [place] Urine Protein Urine Glucose (UA) Urine Ketones Urine Blood Urine Nitrite Urine Bilirubin Urine Urobilinogen Ur Leukocyte Esterase Urine WBC (Auto) Urine RBC (Auto) U Epithel Cells (Auto) Urine Bacteria (Auto) Stool Occult Blood Acetone, Qual B-Hydroxybutyrate 03/19/19 03/19/19 03/19/19 05:00 05:26 06:20 WBC 8.9 RBC 3.78 Hgb 9.1 L Hct 30.8 L D MCV 81.4 MCH 24.1 L MCHC 29.6 L RDW 24.5 H Plt Count 87 L MPV 9.8 Absolute Neuts (auto) Total Counted Neutrophils % Neutrophils % (Manual) Band Neutrophils % Lymphocytes % Lymphocytes % (Manual) Monocytes % Monocytes % (Manual) Eosinophils % Eosinophils % (Manual) Basophils % Basophils % (Manual) Myelocytes % (Man) Promyelocytes % (Man) Blast Cells % (Manual) Nucleated RBC % Metamyelocytes Hypochromia Toxic Granulation Platelet Estimate Platelet Comment Polychromasia Poikilocytosis Anisocytosis Microcytosis Macrocytosis Spherocytes Target Cells Tear Drop Cells Ovalocytes [place] Cells Schistocytes PT with INR INR PTT (Actin FS) Fibrinogen Puncture Site ABG pH ABG pCO2 at Pt Temp ABG pO2 at Pt Temp ABG HCO3 ABG O2 Sat (Measured) ABG O2 Content ABG Base Excess Atul Test O2 Delivery Device Oxygen Flow Rate Vent Mode Vent Rate PEEP Pressure Support Vent Sodium Potassium Chloride Carbon Dioxide Anion Gap BUN Creatinine Est GFR (CKD-EPI)AfAm Est GFR (CKD-EPI)NonAf POC Glucometer 332 Random Glucose Lactic Acid Calcium Phosphorus Magnesium Iron TIBC Iron Saturation Unsaturated IBC Ferritin Total Bilirubin AST ALT Alkaline Phosphatase Creatine Kinase Troponin I Total Protein Albumin Prealbumin 7.0 L Triglycerides Cholesterol Total LDL Cholesterol HDL Cholesterol Beta-Hydroxybutyrate Urine Color Urine Appearance Urine pH Ur Specific [place] Urine Protein Urine Glucose (UA) Urine Ketones Urine Blood Urine Nitrite Urine Bilirubin Urine Urobilinogen Ur Leukocyte Esterase Urine WBC (Auto) Urine RBC (Auto) U Epithel Cells (Auto) Urine Bacteria (Auto) Stool Occult Blood Acetone, Qual B-Hydroxybutyrate 03/19/19 03/19/19 03/19/19 06:20 06:20 06:20 WBC RBC Hgb Hct MCV MCH MCHC RDW Plt Count MPV Absolute Neuts (auto) Total Counted Neutrophils % Neutrophils % (Manual) Band Neutrophils % Lymphocytes % Lymphocytes % (Manual) Monocytes % Monocytes % (Manual) Eosinophils % Eosinophils % (Manual) Basophils % Basophils % (Manual) Myelocytes % (Man) Promyelocytes % (Man) Blast Cells % (Manual) Nucleated RBC % Metamyelocytes Hypochromia Toxic Granulation Platelet Estimate Platelet Comment Polychromasia Poikilocytosis Anisocytosis Microcytosis Macrocytosis Spherocytes Target Cells Tear Drop Cells Ovalocytes [place] Cells Schistocytes PT with INR INR PTT (Actin FS) Fibrinogen Puncture Site ABG pH ABG pCO2 at Pt Temp ABG pO2 at Pt Temp ABG HCO3 ABG O2 Sat (Measured) ABG O2 Content ABG Base Excess Atul Test O2 Delivery Device Oxygen Flow Rate Vent Mode Vent Rate PEEP Pressure Support Vent Sodium 146 H Potassium 2.9 L* Chloride 106 Carbon Dioxide 16 L Anion Gap 24 H BUN 7.8 Creatinine 0.7 Est GFR (CKD-EPI)AfAm 117.91 Est GFR (CKD-EPI)NonAf 101.74 POC Glucometer Random Glucose 371 H Lactic Acid 8.1 H* Calcium 7.0 L Phosphorus Magnesium 2.3 Iron TIBC Iron Saturation Unsaturated IBC Ferritin Total Bilirubin AST ALT Alkaline Phosphatase Creatine Kinase 71 Troponin I 0.53 H Total Protein Albumin Prealbumin Triglycerides Cholesterol Total LDL Cholesterol HDL Cholesterol Beta-Hydroxybutyrate Urine Color Urine Appearance Urine pH Ur Specific [place] Urine Protein Urine Glucose (UA) Urine Ketones Urine Blood Urine Nitrite Urine Bilirubin Urine Urobilinogen Ur Leukocyte Esterase Urine WBC (Auto) Urine RBC (Auto) U Epithel Cells (Auto) Urine Bacteria (Auto) Stool Occult Blood Acetone, Qual B-Hydroxybutyrate 03/19/19 03/19/19 03/19/19 06:22 06:40 06:40 WBC RBC Hgb Hct MCV MCH MCHC RDW Plt Count MPV Absolute Neuts (auto) Total Counted Neutrophils % Neutrophils % (Manual) Band Neutrophils % Lymphocytes % Lymphocytes % (Manual) Monocytes % Monocytes % (Manual) Eosinophils % Eosinophils % (Manual) Basophils % Basophils % (Manual) Myelocytes % (Man) Promyelocytes % (Man) Blast Cells % (Manual) Nucleated RBC % Metamyelocytes Hypochromia Toxic Granulation Platelet Estimate Platelet Comment Polychromasia Poikilocytosis Anisocytosis Microcytosis Macrocytosis Spherocytes Target Cells Tear Drop Cells Ovalocytes [place] Cells Schistocytes PT with INR INR PTT (Actin FS) Fibrinogen Puncture Site Right radial Right radial ABG pH 7.12 L* 7.04 L* ABG pCO2 at Pt Temp 57.3 H 58.1 H ABG pO2 at Pt Temp 131 H 67.5 L ABG HCO3 17.8 L 15.0 L ABG O2 Sat (Measured) 96.9 78.5 L ABG O2 Content 12.4 10.7 ABG Base Excess -11.0 L -15.1 L Atul Test Positive Positive O2 Delivery Device Oxygen Flow Rate 100 100% Vent Mode Vol/ac A/c Vent Rate 14 14 PEEP 5.0 5.0 Pressure Support Vent 400 400 Sodium Potassium Chloride Carbon Dioxide Anion Gap BUN Creatinine Est GFR (CKD-EPI)AfAm Est GFR (CKD-EPI)NonAf POC Glucometer 312 Random Glucose Lactic Acid Calcium Phosphorus Magnesium Iron TIBC Iron Saturation Unsaturated IBC Ferritin Total Bilirubin AST ALT Alkaline Phosphatase Creatine Kinase Troponin I Total Protein Albumin Prealbumin Triglycerides Cholesterol Total LDL Cholesterol HDL Cholesterol Beta-Hydroxybutyrate Urine Color Urine Appearance Urine pH Ur Specific [place] Urine Protein Urine Glucose (UA) Urine Ketones Urine Blood Urine Nitrite Urine Bilirubin Urine Urobilinogen Ur Leukocyte Esterase Urine WBC (Auto) Urine RBC (Auto) U Epithel Cells (Auto) Urine Bacteria (Auto) Stool Occult Blood Acetone, Qual B-Hydroxybutyrate 03/19/19 03/19/19 03/19/19 09:11 10:41 15:30 WBC RBC Hgb Hct MCV MCH MCHC RDW Plt Count MPV Absolute Neuts (auto) Total Counted Neutrophils % Neutrophils % (Manual) Band Neutrophils % Lymphocytes % Lymphocytes % (Manual) Monocytes % Monocytes % (Manual) Eosinophils % Eosinophils % (Manual) Basophils % Basophils % (Manual) Myelocytes % (Man) Promyelocytes % (Man) Blast Cells % (Manual) Nucleated RBC % Metamyelocytes Hypochromia Toxic Granulation Platelet Estimate Platelet Comment Polychromasia Poikilocytosis Anisocytosis Microcytosis Macrocytosis Spherocytes Target Cells Tear Drop Cells Ovalocytes [place] Cells Schistocytes PT with INR INR PTT (Actin FS) Fibrinogen Puncture Site Right radial ABG pH 7.23 L ABG pCO2 at Pt Temp 54.7 H ABG pO2 at Pt Temp 86.4 ABG HCO3 21.9 L ABG O2 Sat (Measured) 93.7 L ABG O2 Content 11.6 ABG Base Excess -5.2 L Atul Test Positive O2 Delivery Device Oxygen Flow Rate 100 Vent Mode Vol/ac Vent Rate 14 PEEP 5.0 Pressure Support Vent 400 Sodium Potassium Chloride Carbon Dioxide Anion Gap BUN Creatinine Est GFR (CKD-EPI)AfAm Est GFR (CKD-EPI)NonAf POC Glucometer 303 Random Glucose Lactic Acid 2.3 H* Calcium Phosphorus Magnesium Iron TIBC Iron Saturation Unsaturated IBC Ferritin Total Bilirubin AST ALT Alkaline Phosphatase Creatine Kinase Troponin I Total Protein Albumin Prealbumin Triglycerides Cholesterol Total LDL Cholesterol HDL Cholesterol Beta-Hydroxybutyrate Urine Color Urine Appearance Urine pH Ur Specific [place] Urine Protein Urine Glucose (UA) Urine Ketones Urine Blood Urine Nitrite Urine Bilirubin Urine Urobilinogen Ur Leukocyte Esterase Urine WBC (Auto) Urine RBC (Auto) U Epithel Cells (Auto) Urine Bacteria (Auto) Stool Occult Blood Acetone, Qual B-Hydroxybutyrate 03/19/19 03/19/19 03/19/19 15:40 15:40 17:26 WBC 11.7 H RBC 3.31 L Hgb 7.9 L Hct 25.2 L D MCV 76.1 L MCH 23.8 L MCHC 31.3 L RDW 24.4 H Plt Count 125 L D MPV 9.9 Absolute Neuts (auto) 10.7 H Total Counted 100 Neutrophils % 92.1 H Neutrophils % (Manual) 77.0 Band Neutrophils % 3.0 Lymphocytes % 5.8 L D Lymphocytes % (Manual) 14.0 D Monocytes % 2.0 L Monocytes % (Manual) 3 L Eosinophils % 0.0 D Eosinophils % (Manual) Basophils % 0.1 Basophils % (Manual) Myelocytes % (Man) 3 H D Promyelocytes % (Man) Blast Cells % (Manual) Nucleated RBC % 1 H Metamyelocytes Hypochromia 1+ Toxic Granulation Platelet Estimate Adequate Platelet Comment Polychromasia Poikilocytosis Anisocytosis 3+ Microcytosis Macrocytosis Spherocytes Target Cells Tear Drop Cells Ovalocytes [place] Cells Schistocytes 1+ PT with INR INR PTT (Actin FS) Fibrinogen Puncture Site ABG pH ABG pCO2 at Pt Temp ABG pO2 at Pt Temp ABG HCO3 ABG O2 Sat (Measured) ABG O2 Content ABG Base Excess Atul Test O2 Delivery Device Oxygen Flow Rate Vent Mode Vent Rate PEEP Pressure Support Vent Sodium 146 H Potassium 2.9 L* Chloride 107 Carbon Dioxide 29 Anion Gap 10 BUN 6.9 L Creatinine 0.7 Est GFR (CKD-EPI)AfAm 117.91 Est GFR (CKD-EPI)NonAf 101.74 POC Glucometer 315 Random Glucose 293 H Lactic Acid Calcium 6.9 L* Phosphorus Magnesium 1.8 Iron TIBC Iron Saturation Unsaturated IBC Ferritin Total Bilirubin 0.4 AST 49 H ALT 17 Alkaline Phosphatase 586 H Creatine Kinase 109 Troponin I 1.01 H* Total Protein 4.5 L Albumin 1.3 L Prealbumin Triglycerides Cholesterol Total LDL Cholesterol HDL Cholesterol Beta-Hydroxybutyrate Urine Color Urine Appearance Urine pH Ur Specific [place] Urine Protein Urine Glucose (UA) Urine Ketones Urine Blood Urine Nitrite Urine Bilirubin Urine Urobilinogen Ur Leukocyte Esterase Urine WBC (Auto) Urine RBC (Auto) U Epithel Cells (Auto) Urine Bacteria (Auto) Stool Occult Blood Acetone, Qual B-Hydroxybutyrate 03/19/19 03/19/19 03/19/19 21:35 21:35 21:45 WBC 8.1 RBC 2.86 L Hgb 6.9 L* Hct 21.4 L D MCV 75.0 L MCH 24.0 L MCHC 32.0 RDW 24.0 H Plt Count 92 L D MPV 9.7 Absolute Neuts (auto) 6.9 Total Counted 100 Neutrophils % 85.0 H Neutrophils % (Manual) 74.0 Band Neutrophils % 7.0 Lymphocytes % 12.1 D Lymphocytes % (Manual) 12.0 Monocytes % 2.7 L Monocytes % (Manual) 4 Eosinophils % 0.1 D Eosinophils % (Manual) Basophils % 0.1 Basophils % (Manual) Myelocytes % (Man) 1 D Promyelocytes % (Man) Blast Cells % (Manual) Nucleated RBC % 1 H Metamyelocytes 1 D Hypochromia 2+ Toxic Granulation Platelet Estimate Decreased Platelet Comment Polychromasia 1+ Poikilocytosis Anisocytosis 2+ Microcytosis Macrocytosis Spherocytes Target Cells Tear Drop Cells Ovalocytes [place] Cells Schistocytes PT with INR INR PTT (Actin FS) Fibrinogen Puncture Site Right radial ABG pH 7.48 H ABG pCO2 at Pt Temp 40.8 ABG pO2 at Pt Temp 264 H ABG HCO3 29.9 H ABG O2 Sat (Measured) 99.8 H ABG O2 Content 10.1 ABG Base Excess 6.2 H Atul Test Positive O2 Delivery Device Ventilater Oxygen Flow Rate 80% Vent Mode Vent Rate 14 PEEP 5.0 Pressure Support Vent 400 Sodium Potassium Chloride Carbon Dioxide Anion Gap BUN Creatinine Est GFR (CKD-EPI)AfAm Est GFR (CKD-EPI)NonAf POC Glucometer 192 Random Glucose Lactic Acid Calcium Phosphorus Magnesium Iron TIBC Iron Saturation Unsaturated IBC Ferritin Total Bilirubin AST ALT Alkaline Phosphatase Creatine Kinase Troponin I Total Protein Albumin Prealbumin Triglycerides Cholesterol Total LDL Cholesterol HDL Cholesterol Beta-Hydroxybutyrate Urine Color Urine Appearance Urine pH Ur Specific [place] Urine Protein Urine Glucose (UA) Urine Ketones Urine Blood Urine Nitrite Urine Bilirubin Urine Urobilinogen Ur Leukocyte Esterase Urine WBC (Auto) Urine RBC (Auto) U Epithel Cells (Auto) Urine Bacteria (Auto) Stool Occult Blood Acetone, Qual B-Hydroxybutyrate 03/19/19 03/19/19 03/19/19 23:15 23:15 23:15 WBC RBC Hgb Hct MCV MCH MCHC RDW Plt Count MPV Absolute Neuts (auto) Total Counted Neutrophils % Neutrophils % (Manual) Band Neutrophils % Lymphocytes % Lymphocytes % (Manual) Monocytes % Monocytes % (Manual) Eosinophils % Eosinophils % (Manual) Basophils % Basophils % (Manual) Myelocytes % (Man) Promyelocytes % (Man) Blast Cells % (Manual) Nucleated RBC % Metamyelocytes Hypochromia Toxic Granulation Platelet Estimate Platelet Comment Polychromasia Poikilocytosis Anisocytosis Microcytosis Macrocytosis Spherocytes Target Cells Tear Drop Cells Ovalocytes [place] Cells Schistocytes PT with INR 17.70 H INR 1.49 H PTT (Actin FS) 36.3 Fibrinogen 359.0 Puncture Site ABG pH ABG pCO2 at Pt Temp ABG pO2 at Pt Temp ABG HCO3 ABG O2 Sat (Measured) ABG O2 Content ABG Base Excess Atul Test O2 Delivery Device Oxygen Flow Rate Vent Mode Vent Rate PEEP Pressure Support Vent Sodium 146 H Potassium 3.1 L Chloride 108 H Carbon Dioxide 32 Anion Gap 6 L BUN 7.1 Creatinine 0.6 Est GFR (CKD-EPI)AfAm 124.05 Est GFR (CKD-EPI)NonAf 107.03 POC Glucometer Random Glucose 227 H Lactic Acid Calcium 6.4 L* Phosphorus Magnesium Iron TIBC Iron Saturation Unsaturated IBC Ferritin Total Bilirubin 0.4 AST 37 ALT 13 Alkaline Phosphatase 460 H Creatine Kinase Troponin I 1.94 H* Total Protein 4.0 L Albumin 1.2 L Prealbumin Triglycerides Cholesterol Total LDL Cholesterol HDL Cholesterol Beta-Hydroxybutyrate Urine Color Urine Appearance Urine pH Ur Specific [place] Urine Protein Urine Glucose (UA) Urine Ketones Urine Blood Urine Nitrite Urine Bilirubin Urine Urobilinogen Ur Leukocyte Esterase Urine WBC (Auto) Urine RBC (Auto) U Epithel Cells (Auto) Urine Bacteria (Auto) Stool Occult Blood Acetone, Qual B-Hydroxybutyrate 03/19/19 03/20/19 03/20/19 23:15 05:30 05:30 WBC 9.9 RBC 2.90 L Hgb 7.1 L Hct 21.8 L MCV 75.3 L MCH 24.5 L MCHC 32.5 RDW 24.3 H Plt Count 72 L D MPV 9.3 Absolute Neuts (auto) 8.4 H Total Counted Neutrophils % 84.5 H Neutrophils % (Manual) 81.0 Band Neutrophils % 1.0 Lymphocytes % 12.6 Lymphocytes % (Manual) 11.0 Monocytes % 1.9 L Monocytes % (Manual) 2 L Eosinophils % 0.8 D Eosinophils % (Manual) 0.0 D Basophils % 0.2 Basophils % (Manual) 0.0 Myelocytes % (Man) 2 D Promyelocytes % (Man) 0 Blast Cells % (Manual) 0 Nucleated RBC % 1 H Metamyelocytes 3 H D Hypochromia 2+ Toxic Granulation Platelet Estimate Decreased Platelet Comment Polychromasia 3+ Poikilocytosis 1+ Anisocytosis 3+ Microcytosis 3+ Macrocytosis 0 Spherocytes Target Cells Tear Drop Cells Ovalocytes 1+ [place] Cells Schistocytes PT with INR INR PTT (Actin FS) 33.4 Fibrinogen Puncture Site ABG pH ABG pCO2 at Pt Temp ABG pO2 at Pt Temp ABG HCO3 ABG O2 Sat (Measured) ABG O2 Content ABG Base Excess Atul Test O2 Delivery Device Oxygen Flow Rate Vent Mode Vent Rate PEEP Pressure Support Vent Sodium Potassium Chloride Carbon Dioxide Anion Gap BUN Creatinine Est GFR (CKD-EPI)AfAm Est GFR (CKD-EPI)NonAf POC Glucometer Random Glucose Lactic Acid Calcium Phosphorus Magnesium Iron TIBC Iron Saturation Unsaturated IBC Ferritin Total Bilirubin AST ALT Alkaline Phosphatase Creatine Kinase Troponin I Cancelled Total Protein Albumin Prealbumin Triglycerides Cholesterol Total LDL Cholesterol HDL Cholesterol Beta-Hydroxybutyrate Urine Color Urine Appearance Urine pH Ur Specific [place] Urine Protein Urine Glucose (UA) Urine Ketones Urine Blood Urine Nitrite Urine Bilirubin Urine Urobilinogen Ur Leukocyte Esterase Urine WBC (Auto) Urine RBC (Auto) U Epithel Cells (Auto) Urine Bacteria (Auto) Stool Occult Blood Acetone, Qual B-Hydroxybutyrate 03/20/19 03/20/19 03/20/19 05:30 05:30 05:40 WBC RBC Hgb Hct MCV MCH MCHC RDW Plt Count MPV Absolute Neuts (auto) Total Counted Neutrophils % Neutrophils % (Manual) Band Neutrophils % Lymphocytes % Lymphocytes % (Manual) Monocytes % Monocytes % (Manual) Eosinophils % Eosinophils % (Manual) Basophils % Basophils % (Manual) Myelocytes % (Man) Promyelocytes % (Man) Blast Cells % (Manual) Nucleated RBC % Metamyelocytes Hypochromia Toxic Granulation Platelet Estimate Platelet Comment Polychromasia Poikilocytosis Anisocytosis Microcytosis Macrocytosis Spherocytes Target Cells Tear Drop Cells Ovalocytes [place] Cells Schistocytes PT with INR INR PTT (Actin FS) Fibrinogen Puncture Site ABG pH ABG pCO2 at Pt Temp ABG pO2 at Pt Temp ABG HCO3 ABG O2 Sat (Measured) ABG O2 Content ABG Base Excess Atul Test O2 Delivery Device Oxygen Flow Rate Vent Mode Vent Rate PEEP Pressure Support Vent Sodium 145 Potassium 3.2 L Chloride 106 Carbon Dioxide 27 Anion Gap 11 BUN 10.1 Creatinine 0.5 L Est GFR (CKD-EPI)AfAm 131.72 Est GFR (CKD-EPI)NonAf 113.65 POC Glucometer 397 Random Glucose 366 H Lactic Acid Calcium 6.7 L* Phosphorus 0.7 L* Magnesium 2.0 Iron TIBC Iron Saturation Unsaturated IBC Ferritin Total Bilirubin 0.3 AST 29 ALT 12 L Alkaline Phosphatase 422 H Creatine Kinase Troponin I Total Protein 4.0 L Albumin 1.2 L Prealbumin Triglycerides Cholesterol Total LDL Cholesterol HDL Cholesterol Beta-Hydroxybutyrate Urine Color Urine Appearance Urine pH Ur Specific [place] Urine Protein Urine Glucose (UA) Urine Ketones Urine Blood Urine Nitrite Urine Bilirubin Urine Urobilinogen Ur Leukocyte Esterase Urine WBC (Auto) Urine RBC (Auto) U Epithel Cells (Auto) Urine Bacteria (Auto) Stool Occult Blood Positive Acetone, Qual B-Hydroxybutyrate 03/20/19 03/20/19 03/20/19 09:59 10:59 12:24 WBC RBC Hgb Hct MCV MCH MCHC RDW Plt Count MPV Absolute Neuts (auto) Total Counted Neutrophils % Neutrophils % (Manual) Band Neutrophils % Lymphocytes % Lymphocytes % (Manual) Monocytes % Monocytes % (Manual) Eosinophils % Eosinophils % (Manual) Basophils % Basophils % (Manual) Myelocytes % (Man) Promyelocytes % (Man) Blast Cells % (Manual) Nucleated RBC % Metamyelocytes Hypochromia Toxic Granulation Platelet Estimate Platelet Comment Polychromasia Poikilocytosis Anisocytosis Microcytosis Macrocytosis Spherocytes Target Cells Tear Drop Cells Ovalocytes [place] Cells Schistocytes PT with INR INR PTT (Actin FS) Fibrinogen Puncture Site ABG pH ABG pCO2 at Pt Temp ABG pO2 at Pt Temp ABG HCO3 ABG O2 Sat (Measured) ABG O2 Content ABG Base Excess Atul Test O2 Delivery Device Oxygen Flow Rate Vent Mode Vent Rate PEEP Pressure Support Vent Sodium Potassium Chloride Carbon Dioxide Anion Gap BUN Creatinine Est GFR (CKD-EPI)AfAm Est GFR (CKD-EPI)NonAf POC Glucometer [phone] Random Glucose Lactic Acid Calcium Phosphorus Magnesium Iron TIBC Iron Saturation Unsaturated IBC Ferritin Total Bilirubin AST ALT Alkaline Phosphatase Creatine Kinase Troponin I Total Protein Albumin Prealbumin Triglycerides Cholesterol Total LDL Cholesterol HDL Cholesterol Beta-Hydroxybutyrate Urine Color Urine Appearance Urine pH Ur Specific [place] Urine Protein Urine Glucose (UA) Urine Ketones Urine Blood Urine Nitrite Urine Bilirubin Urine Urobilinogen Ur Leukocyte Esterase Urine WBC (Auto) Urine RBC (Auto) U Epithel Cells (Auto) Urine Bacteria (Auto) Stool Occult Blood Acetone, Qual B-Hydroxybutyrate 03/20/19 03/20/19 03/20/19 13:14 14:08 17:00 WBC RBC Hgb Hct MCV MCH MCHC RDW Plt Count MPV Absolute Neuts (auto) Total Counted Neutrophils % Neutrophils % (Manual) Band Neutrophils % Lymphocytes % Lymphocytes % (Manual) Monocytes % Monocytes % (Manual) Eosinophils % Eosinophils % (Manual) Basophils % Basophils % (Manual) Myelocytes % (Man) Promyelocytes % (Man) Blast Cells % (Manual) Nucleated RBC % Metamyelocytes Hypochromia Toxic Granulation Platelet Estimate Platelet Comment Polychromasia Poikilocytosis Anisocytosis Microcytosis Macrocytosis Spherocytes Target Cells Tear Drop Cells Ovalocytes [place] Cells Schistocytes PT with INR INR PTT (Actin FS) Fibrinogen Puncture Site ABG pH ABG pCO2 at Pt Temp ABG pO2 at Pt Temp ABG HCO3 ABG O2 Sat (Measured) ABG O2 Content ABG Base Excess Atul Test O2 Delivery Device Oxygen Flow Rate Vent Mode Vent Rate PEEP Pressure Support Vent Sodium 143 Potassium 3.5 Chloride 104 Carbon Dioxide 29 Anion Gap 10 BUN 10.5 Creatinine 0.4 L Est GFR (CKD-EPI)AfAm 141.75 Est GFR (CKD-EPI)NonAf 122.30 POC Glucometer 139 134 Random Glucose 315 H Lactic Acid Calcium 6.4 L* Phosphorus 2.4 L Magnesium 1.7 L Iron 125 TIBC 124 L Iron Saturation 100 H Unsaturated IBC -1 L Ferritin 220.2 Total Bilirubin AST ALT Alkaline Phosphatase Creatine Kinase Troponin I Total Protein Albumin Prealbumin Triglycerides Cholesterol Total LDL Cholesterol HDL Cholesterol Beta-Hydroxybutyrate Urine Color Urine Appearance Urine pH Ur Specific [place] Urine Protein Urine Glucose (UA) Urine Ketones Urine Blood Urine Nitrite Urine Bilirubin Urine Urobilinogen Ur Leukocyte Esterase Urine WBC (Auto) Urine RBC (Auto) U Epithel Cells (Auto) Urine Bacteria (Auto) Stool Occult Blood Acetone, Qual B-Hydroxybutyrate 03/20/19 03/20/19 03/20/19 17:32 19:44 21:48 WBC RBC Hgb Hct MCV MCH MCHC RDW Plt Count MPV Absolute Neuts (auto) Total Counted Neutrophils % Neutrophils % (Manual) Band Neutrophils % Lymphocytes % Lymphocytes % (Manual) Monocytes % Monocytes % (Manual) Eosinophils % Eosinophils % (Manual) Basophils % Basophils % (Manual) Myelocytes % (Man) Promyelocytes % (Man) Blast Cells % (Manual) Nucleated RBC % Metamyelocytes Hypochromia Toxic Granulation Platelet Estimate Platelet Comment Polychromasia Poikilocytosis Anisocytosis Microcytosis Macrocytosis Spherocytes Target Cells Tear Drop Cells Ovalocytes [place] Cells Schistocytes PT with INR INR PTT (Actin FS) Fibrinogen Puncture Site ABG pH ABG pCO2 at Pt Temp ABG pO2 at Pt Temp ABG HCO3 ABG O2 Sat (Measured) ABG O2 Content ABG Base Excess Atul Test O2 Delivery Device Oxygen Flow Rate Vent Mode Vent Rate PEEP Pressure Support Vent Sodium Potassium Chloride Carbon Dioxide Anion Gap BUN Creatinine Est GFR (CKD-EPI)AfAm Est GFR (CKD-EPI)NonAf POC Glucometer [phone] Random Glucose Lactic Acid Calcium Phosphorus Magnesium Iron TIBC Iron Saturation Unsaturated IBC Ferritin Total Bilirubin AST ALT Alkaline Phosphatase Creatine Kinase Troponin I Total Protein Albumin Prealbumin Triglycerides Cholesterol Total LDL Cholesterol HDL Cholesterol Beta-Hydroxybutyrate Urine Color Urine Appearance Urine pH Ur Specific [place] Urine Protein Urine Glucose (UA) Urine Ketones Urine Blood Urine Nitrite Urine Bilirubin Urine Urobilinogen Ur Leukocyte Esterase Urine WBC (Auto) Urine RBC (Auto) U Epithel Cells (Auto) Urine Bacteria (Auto) Stool Occult Blood Acetone, Qual B-Hydroxybutyrate 03/20/19 03/21/19 03/21/19 23:26 00:36 01:42 WBC RBC Hgb Hct MCV MCH MCHC RDW Plt Count MPV Absolute Neuts (auto) Total Counted Neutrophils % Neutrophils % (Manual) Band Neutrophils % Lymphocytes % Lymphocytes % (Manual) Monocytes % Monocytes % (Manual) Eosinophils % Eosinophils % (Manual) Basophils % Basophils % (Manual) Myelocytes % (Man) Promyelocytes % (Man) Blast Cells % (Manual) Nucleated RBC % Metamyelocytes Hypochromia Toxic Granulation Platelet Estimate Platelet Comment Polychromasia Poikilocytosis Anisocytosis Microcytosis Macrocytosis Spherocytes Target Cells Tear Drop Cells Ovalocytes [place] Cells Schistocytes PT with INR INR PTT (Actin FS) Fibrinogen Puncture Site ABG pH ABG pCO2 at Pt Temp ABG pO2 at Pt Temp ABG HCO3 ABG O2 Sat (Measured) ABG O2 Content ABG Base Excess Atul Test O2 Delivery Device Oxygen Flow Rate Vent Mode Vent Rate PEEP Pressure Support Vent Sodium Potassium Chloride Carbon Dioxide Anion Gap BUN Creatinine Est GFR (CKD-EPI)AfAm Est GFR (CKD-EPI)NonAf POC Glucometer 88 [phone] Random Glucose Lactic Acid Calcium Phosphorus Magnesium Iron TIBC Iron Saturation Unsaturated IBC Ferritin Total Bilirubin AST ALT Alkaline Phosphatase Creatine Kinase Troponin I Total Protein Albumin Prealbumin Triglycerides Cholesterol Total LDL Cholesterol HDL Cholesterol Beta-Hydroxybutyrate Urine Color Urine Appearance Urine pH Ur Specific [place] Urine Protein Urine Glucose (UA) Urine Ketones Urine Blood Urine Nitrite Urine Bilirubin Urine Urobilinogen Ur Leukocyte Esterase Urine WBC (Auto) Urine RBC (Auto) U Epithel Cells (Auto) Urine Bacteria (Auto) Stool Occult Blood Acetone, Qual B-Hydroxybutyrate 03/21/19 03/21/19 03/21/19 02:46 04:55 05:30 WBC 12.0 H RBC 3.85 Hgb 9.9 L Hct 29.9 L D MCV 77.7 L MCH 25.6 L MCHC 33.0 RDW 21.8 H Plt Count 87 L D MPV 9.6 Absolute Neuts (auto) 9.6 H Total Counted Neutrophils % 79.3 Neutrophils % (Manual) 72.7 Band Neutrophils % 1.0 Lymphocytes % 15.9 D Lymphocytes % (Manual) 19.2 D Monocytes % 2.1 L Monocytes % (Manual) 3 L Eosinophils % 2.4 D Eosinophils % (Manual) 3.1 D Basophils % 0.3 Basophils % (Manual) 0.0 Myelocytes % (Man) 0 D Promyelocytes % (Man) 0 Blast Cells % (Manual) 0 Nucleated RBC % 0 Metamyelocytes 1 D Hypochromia 0 Toxic Granulation Platelet Estimate Decreased Platelet Comment Polychromasia 1+ Poikilocytosis 0 Anisocytosis 1+ Microcytosis 1+ Macrocytosis 0 Spherocytes Target Cells 2+ Tear Drop Cells Ovalocytes 1+ [place] Cells Schistocytes PT with INR INR PTT (Actin FS) Fibrinogen Puncture Site ABG pH ABG pCO2 at Pt Temp ABG pO2 at Pt Temp ABG HCO3 ABG O2 Sat (Measured) ABG O2 Content ABG Base Excess Atul Test O2 Delivery Device Oxygen Flow Rate Vent Mode Vent Rate PEEP Pressure Support Vent Sodium Potassium Chloride Carbon Dioxide Anion Gap BUN Creatinine Est GFR (CKD-EPI)AfAm Est GFR (CKD-EPI)NonAf POC Glucometer 265 225 Random Glucose Lactic Acid Calcium Phosphorus Magnesium Iron TIBC Iron Saturation Unsaturated IBC Ferritin Total Bilirubin AST ALT Alkaline Phosphatase Creatine Kinase Troponin I Total Protein Albumin Prealbumin Triglycerides Cholesterol Total LDL Cholesterol HDL Cholesterol Beta-Hydroxybutyrate Urine Color Urine Appearance Urine pH Ur Specific [place] Urine Protein Urine Glucose (UA) Urine Ketones Urine Blood Urine Nitrite Urine Bilirubin Urine Urobilinogen Ur Leukocyte Esterase Urine WBC (Auto) Urine RBC (Auto) U Epithel Cells (Auto) Urine Bacteria (Auto) Stool Occult Blood Acetone, Qual B-Hydroxybutyrate 03/21/19 03/21/19 03/21/19 05:30 05:30 06:00 WBC RBC Hgb Hct MCV MCH MCHC RDW Plt Count MPV Absolute Neuts (auto) Total Counted Neutrophils % Neutrophils % (Manual) Band Neutrophils % Lymphocytes % Lymphocytes % (Manual) Monocytes % Monocytes % (Manual) Eosinophils % Eosinophils % (Manual) Basophils % Basophils % (Manual) Myelocytes % (Man) Promyelocytes % (Man) Blast Cells % (Manual) Nucleated RBC % Metamyelocytes Hypochromia Toxic Granulation Platelet Estimate Platelet Comment Polychromasia Poikilocytosis Anisocytosis Microcytosis Macrocytosis Spherocytes Target Cells Tear Drop Cells Ovalocytes [place] Cells Schistocytes PT with INR INR PTT (Actin FS) Fibrinogen Puncture Site Left radial ABG pH 7.46 H ABG pCO2 at Pt Temp 44.1 ABG pO2 at Pt Temp 134 H ABG HCO3 30.6 H ABG O2 Sat (Measured) 98.8 H ABG O2 Content 17.0 ABG Base Excess 6.3 H Atul Test Positive O2 Delivery Device Vent Oxygen Flow Rate 40% Vent Mode A/c Vent Rate 14 PEEP 5.0 Pressure Support Vent 400 Sodium 142 Potassium 2.9 L* Chloride 103 Carbon Dioxide 31 Anion Gap 8 BUN 14.5 Creatinine 0.5 L Est GFR (CKD-EPI)AfAm 131.72 Est GFR (CKD-EPI)NonAf 113.65 POC Glucometer Random Glucose 242 H Lactic Acid 3.4 H* Calcium 6.6 L* Phosphorus Magnesium 1.6 L Iron TIBC Iron Saturation Unsaturated IBC Ferritin Total Bilirubin 0.5 AST 22 ALT 10 L Alkaline Phosphatase 332 H Creatine Kinase Troponin I Total Protein 4.2 L Albumin 1.2 L Prealbumin Triglycerides Cholesterol Total LDL Cholesterol HDL Cholesterol Beta-Hydroxybutyrate Urine Color Urine Appearance Urine pH Ur Specific [place] Urine Protein Urine Glucose (UA) Urine Ketones Urine Blood Urine Nitrite Urine Bilirubin Urine Urobilinogen Ur Leukocyte Esterase Urine WBC (Auto) Urine RBC (Auto) U Epithel Cells (Auto) Urine Bacteria (Auto) Stool Occult Blood Acetone, Qual B-Hydroxybutyrate 03/21/19 03/21/19 03/21/19 06:21 07:06 08:46 WBC RBC Hgb Hct MCV MCH MCHC RDW Plt Count MPV Absolute Neuts (auto) Total Counted Neutrophils % Neutrophils % (Manual) Band Neutrophils % Lymphocytes % Lymphocytes % (Manual) Monocytes % Monocytes % (Manual) Eosinophils % Eosinophils % (Manual) Basophils % Basophils % (Manual) Myelocytes % (Man) Promyelocytes % (Man) Blast Cells % (Manual) Nucleated RBC % Metamyelocytes Hypochromia Toxic Granulation Platelet Estimate Platelet Comment Polychromasia Poikilocytosis Anisocytosis Microcytosis Macrocytosis Spherocytes Target Cells Tear Drop Cells Ovalocytes [place] Cells Schistocytes PT with INR INR PTT (Actin FS) Fibrinogen Puncture Site ABG pH ABG pCO2 at Pt Temp ABG pO2 at Pt Temp ABG HCO3 ABG O2 Sat (Measured) ABG O2 Content ABG Base Excess Atul Test O2 Delivery Device Oxygen Flow Rate Vent Mode Vent Rate PEEP Pressure Support Vent Sodium Potassium Chloride Carbon Dioxide Anion Gap BUN Creatinine Est GFR (CKD-EPI)AfAm Est GFR (CKD-EPI)NonAf POC Glucometer [phone] Random Glucose Lactic Acid Calcium Phosphorus Magnesium Iron TIBC Iron Saturation Unsaturated IBC Ferritin Total Bilirubin AST ALT Alkaline Phosphatase Creatine Kinase Troponin I Total Protein Albumin Prealbumin Triglycerides Cholesterol Total LDL Cholesterol HDL Cholesterol Beta-Hydroxybutyrate Urine Color Urine Appearance Urine pH Ur Specific [place] Urine Protein Urine Glucose (UA) Urine Ketones Urine Blood Urine Nitrite Urine Bilirubin Urine Urobilinogen Ur Leukocyte Esterase Urine WBC (Auto) Urine RBC (Auto) U Epithel Cells (Auto) Urine Bacteria (Auto) Stool Occult Blood Acetone, Qual B-Hydroxybutyrate 03/21/19 03/21/19 03/21/19 10:28 12:29 14:44 WBC RBC Hgb Hct MCV MCH MCHC RDW Plt Count MPV Absolute Neuts (auto) Total Counted Neutrophils % Neutrophils % (Manual) Band Neutrophils % Lymphocytes % Lymphocytes % (Manual) Monocytes % Monocytes % (Manual) Eosinophils % Eosinophils % (Manual) Basophils % Basophils % (Manual) Myelocytes % (Man) Promyelocytes % (Man) Blast Cells % (Manual) Nucleated RBC % Metamyelocytes Hypochromia Toxic Granulation Platelet Estimate Platelet Comment Polychromasia Poikilocytosis Anisocytosis Microcytosis Macrocytosis Spherocytes Target Cells Tear Drop Cells Ovalocytes [place] Cells Schistocytes PT with INR INR PTT (Actin FS) Fibrinogen Puncture Site ABG pH ABG pCO2 at Pt Temp ABG pO2 at Pt Temp ABG HCO3 ABG O2 Sat (Measured) ABG O2 Content ABG Base Excess Atul Test O2 Delivery Device Oxygen Flow Rate Vent Mode Vent Rate PEEP Pressure Support Vent Sodium Potassium Chloride Carbon Dioxide Anion Gap BUN Creatinine Est GFR (CKD-EPI)AfAm Est GFR (CKD-EPI)NonAf POC Glucometer [phone] Random Glucose Lactic Acid Calcium Phosphorus Magnesium Iron TIBC Iron Saturation Unsaturated IBC Ferritin Total Bilirubin AST ALT Alkaline Phosphatase Creatine Kinase Troponin I Total Protein Albumin Prealbumin Triglycerides Cholesterol Total LDL Cholesterol HDL Cholesterol Beta-Hydroxybutyrate Urine Color Urine Appearance Urine pH Ur Specific [place] Urine Protein Urine Glucose (UA) Urine Ketones Urine Blood Urine Nitrite Urine Bilirubin Urine Urobilinogen Ur Leukocyte Esterase Urine WBC (Auto) Urine RBC (Auto) U Epithel Cells (Auto) Urine Bacteria (Auto) Stool Occult Blood Acetone, Qual B-Hydroxybutyrate 03/21/19 03/21/19 03/21/19 16:27 18:15 18:25 WBC RBC Hgb Hct MCV MCH MCHC RDW Plt Count MPV Absolute Neuts (auto) Total Counted Neutrophils % Neutrophils % (Manual) Band Neutrophils % Lymphocytes % Lymphocytes % (Manual) Monocytes % Monocytes % (Manual) Eosinophils % Eosinophils % (Manual) Basophils % Basophils % (Manual) Myelocytes % (Man) Promyelocytes % (Man) Blast Cells % (Manual) Nucleated RBC % Metamyelocytes Hypochromia Toxic Granulation Platelet Estimate Platelet Comment Polychromasia Poikilocytosis Anisocytosis Microcytosis Macrocytosis Spherocytes Target Cells Tear Drop Cells Ovalocytes [place] Cells Schistocytes PT with INR INR PTT (Actin FS) Fibrinogen Puncture Site ABG pH ABG pCO2 at Pt Temp ABG pO2 at Pt Temp ABG HCO3 ABG O2 Sat (Measured) ABG O2 Content ABG Base Excess Atul Test O2 Delivery Device Oxygen Flow Rate Vent Mode Vent Rate PEEP Pressure Support Vent Sodium 143 Potassium 3.1 L Chloride 105 Carbon Dioxide 28 Anion Gap 10 BUN 17.0 Creatinine 0.6 Est GFR (CKD-EPI)AfAm 124.05 Est GFR (CKD-EPI)NonAf 107.03 POC Glucometer 257 136 Random Glucose 137 H Lactic Acid Calcium 7.1 L Phosphorus 1.2 L Magnesium 2.2 Iron TIBC Iron Saturation Unsaturated IBC Ferritin Total Bilirubin AST ALT Alkaline Phosphatase Creatine Kinase Troponin I Total Protein Albumin Prealbumin Triglycerides Cholesterol Total LDL Cholesterol HDL Cholesterol Beta-Hydroxybutyrate 1.7 Urine Color Urine Appearance Urine pH Ur Specific [place] Urine Protein Urine Glucose (UA) Urine Ketones Urine Blood Urine Nitrite Urine Bilirubin Urine Urobilinogen Ur Leukocyte Esterase Urine WBC (Auto) Urine RBC (Auto) U Epithel Cells (Auto) Urine Bacteria (Auto) Stool Occult Blood Acetone, Qual B-Hydroxybutyrate 03/21/19 03/21/19 03/22/19 20:20 21:31 00:00 WBC RBC Hgb Hct MCV MCH MCHC RDW Plt Count MPV Absolute Neuts (auto) Total Counted Neutrophils % Neutrophils % (Manual) Band Neutrophils % Lymphocytes % Lymphocytes % (Manual) Monocytes % Monocytes % (Manual) Eosinophils % Eosinophils % (Manual) Basophils % Basophils % (Manual) Myelocytes % (Man) Promyelocytes % (Man) Blast Cells % (Manual) Nucleated RBC % Metamyelocytes Hypochromia Toxic Granulation Platelet Estimate Platelet Comment Polychromasia Poikilocytosis Anisocytosis Microcytosis Macrocytosis Spherocytes Target Cells Tear Drop Cells Ovalocytes [place] Cells Schistocytes PT with INR INR PTT (Actin FS) Fibrinogen Puncture Site ABG pH ABG pCO2 at Pt Temp ABG pO2 at Pt Temp ABG HCO3 ABG O2 Sat (Measured) ABG O2 Content ABG Base Excess Atul Test O2 Delivery Device Oxygen Flow Rate Vent Mode Vent Rate PEEP Pressure Support Vent Sodium Potassium Chloride Carbon Dioxide Anion Gap BUN Creatinine Est GFR (CKD-EPI)AfAm Est GFR (CKD-EPI)NonAf POC Glucometer 93 [phone] Random Glucose Lactic Acid Calcium Phosphorus Magnesium Iron TIBC Iron Saturation Unsaturated IBC Ferritin Total Bilirubin AST ALT Alkaline Phosphatase Creatine Kinase Troponin I Total Protein Albumin Prealbumin Triglycerides Cholesterol Total LDL Cholesterol HDL Cholesterol Beta-Hydroxybutyrate Urine Color Urine Appearance Urine pH Ur Specific [place] Urine Protein Urine Glucose (UA) Urine Ketones Urine Blood Urine Nitrite Urine Bilirubin Urine Urobilinogen Ur Leukocyte Esterase Urine WBC (Auto) Urine RBC (Auto) U Epithel Cells (Auto) Urine Bacteria (Auto) Stool Occult Blood Acetone, Qual B-Hydroxybutyrate 03/22/19 03/22/19 03/22/19 02:29 04:38 05:10 WBC 11.1 H RBC 3.88 Hgb 10.0 L Hct 29.8 L MCV 76.9 L MCH 25.8 MCHC 33.5 RDW 23.0 H Plt Count 95 L MPV 9.4 Absolute Neuts (auto) 8.7 H Total Counted Neutrophils % 78.6 Neutrophils % (Manual) Band Neutrophils % Lymphocytes % 18.0 Lymphocytes % (Manual) Monocytes % 1.4 L Monocytes % (Manual) Eosinophils % 1.7 Eosinophils % (Manual) Basophils % 0.3 Basophils % (Manual) Myelocytes % (Man) Promyelocytes % (Man) Blast Cells % (Manual) Nucleated RBC % 0 Metamyelocytes Hypochromia Toxic Granulation Platelet Estimate Platelet Comment Polychromasia Poikilocytosis Anisocytosis Microcytosis Macrocytosis Spherocytes Target Cells Tear Drop Cells Ovalocytes [place] Cells Schistocytes PT with INR INR PTT (Actin FS) Fibrinogen Puncture Site ABG pH ABG pCO2 at Pt Temp ABG pO2 at Pt Temp ABG HCO3 ABG O2 Sat (Measured) ABG O2 Content ABG Base Excess Atul Test O2 Delivery Device Oxygen Flow Rate Vent Mode Vent Rate PEEP Pressure Support Vent Sodium Potassium Chloride Carbon Dioxide Anion Gap BUN Creatinine Est GFR (CKD-EPI)AfAm Est GFR (CKD-EPI)NonAf POC Glucometer 163 141 Random Glucose Lactic Acid Calcium Phosphorus Magnesium Iron TIBC Iron Saturation Unsaturated IBC Ferritin Total Bilirubin AST ALT Alkaline Phosphatase Creatine Kinase Troponin I Total Protein Albumin Prealbumin Triglycerides Cholesterol Total LDL Cholesterol HDL Cholesterol Beta-Hydroxybutyrate Urine Color Urine Appearance Urine pH Ur Specific [place] Urine Protein Urine Glucose (UA) Urine Ketones Urine Blood Urine Nitrite Urine Bilirubin Urine Urobilinogen Ur Leukocyte Esterase Urine WBC (Auto) Urine RBC (Auto) U Epithel Cells (Auto) Urine Bacteria (Auto) Stool Occult Blood Acetone, Qual B-Hydroxybutyrate 03/22/19 03/22/19 03/22/19 05:10 05:10 07:56 WBC RBC Hgb Hct MCV MCH MCHC RDW Plt Count MPV Absolute Neuts (auto) Total Counted Neutrophils % Neutrophils % (Manual) Band Neutrophils % Lymphocytes % Lymphocytes % (Manual) Monocytes % Monocytes % (Manual) Eosinophils % Eosinophils % (Manual) Basophils % Basophils % (Manual) Myelocytes % (Man) Promyelocytes % (Man) Blast Cells % (Manual) Nucleated RBC % Metamyelocytes Hypochromia Toxic Granulation Platelet Estimate Platelet Comment Polychromasia Poikilocytosis Anisocytosis Microcytosis Macrocytosis Spherocytes Target Cells Tear Drop Cells Ovalocytes [place] Cells Schistocytes PT with INR INR PTT (Actin FS) Fibrinogen Puncture Site ABG pH ABG pCO2 at Pt Temp ABG pO2 at Pt Temp ABG HCO3 ABG O2 Sat (Measured) ABG O2 Content ABG Base Excess Atul Test O2 Delivery Device Oxygen Flow Rate Vent Mode Vent Rate PEEP Pressure Support Vent Sodium 141 Potassium 3.9 Chloride 104 Carbon Dioxide 30 Anion Gap 8 BUN 18.6 H Creatinine 0.5 L Est GFR (CKD-EPI)AfAm 131.72 Est GFR (CKD-EPI)NonAf 113.65 POC Glucometer 195 Random Glucose 156 H Lactic Acid Calcium 6.9 L* Phosphorus Magnesium 2.1 Iron TIBC Iron Saturation Unsaturated IBC Ferritin Total Bilirubin 0.4 AST 20 ALT 11 L Alkaline Phosphatase 285 H Creatine Kinase Troponin I Total Protein 4.4 L Albumin 1.2 L Prealbumin Triglycerides Cholesterol Total LDL Cholesterol HDL Cholesterol Beta-Hydroxybutyrate 0.9 Urine Color Urine Appearance Urine pH Ur Specific [place] Urine Protein Urine Glucose (UA) Urine Ketones Urine Blood Urine Nitrite Urine Bilirubin Urine Urobilinogen Ur Leukocyte Esterase Urine WBC (Auto) Urine RBC (Auto) U Epithel Cells (Auto) Urine Bacteria (Auto) Stool Occult Blood Acetone, Qual B-Hydroxybutyrate 03/22/19 03/22/19 03/22/19 10:49 14:56 17:11 WBC RBC Hgb Hct MCV MCH MCHC RDW Plt Count MPV Absolute Neuts (auto) Total Counted Neutrophils % Neutrophils % (Manual) Band Neutrophils % Lymphocytes % Lymphocytes % (Manual) Monocytes % Monocytes % (Manual) Eosinophils % Eosinophils % (Manual) Basophils % Basophils % (Manual) Myelocytes % (Man) Promyelocytes % (Man) Blast Cells % (Manual) Nucleated RBC % Metamyelocytes Hypochromia Toxic Granulation Platelet Estimate Platelet Comment Polychromasia Poikilocytosis Anisocytosis Microcytosis Macrocytosis Spherocytes Target Cells Tear Drop Cells Ovalocytes [place] Cells Schistocytes PT with INR INR PTT (Actin FS) Fibrinogen Puncture Site ABG pH ABG pCO2 at Pt Temp ABG pO2 at Pt Temp ABG HCO3 ABG O2 Sat (Measured) ABG O2 Content ABG Base Excess Atul Test O2 Delivery Device Oxygen Flow Rate Vent Mode Vent Rate PEEP Pressure Support Vent Sodium Potassium Chloride Carbon Dioxide Anion Gap BUN Creatinine Est GFR (CKD-EPI)AfAm Est GFR (CKD-EPI)NonAf POC Glucometer [phone] Random Glucose Lactic Acid Calcium Phosphorus Magnesium Iron TIBC Iron Saturation Unsaturated IBC Ferritin Total Bilirubin AST ALT Alkaline Phosphatase Creatine Kinase Troponin I Total Protein Albumin Prealbumin Triglycerides Cholesterol Total LDL Cholesterol HDL Cholesterol Beta-Hydroxybutyrate Urine Color Urine Appearance Urine pH Ur Specific [place] Urine Protein Urine Glucose (UA) Urine Ketones Urine Blood Urine Nitrite Urine Bilirubin Urine Urobilinogen Ur Leukocyte Esterase Urine WBC (Auto) Urine RBC (Auto) U Epithel Cells (Auto) Urine Bacteria (Auto) Stool Occult Blood Acetone, Qual B-Hydroxybutyrate 03/22/19 03/23/19 03/23/19 21:34 02:48 03:32 WBC RBC Hgb Hct MCV MCH MCHC RDW Plt Count MPV Absolute Neuts (auto) Total Counted Neutrophils % Neutrophils % (Manual) Band Neutrophils % Lymphocytes % Lymphocytes % (Manual) Monocytes % Monocytes % (Manual) Eosinophils % Eosinophils % (Manual) Basophils % Basophils % (Manual) Myelocytes % (Man) Promyelocytes % (Man) Blast Cells % (Manual) Nucleated RBC % Metamyelocytes Hypochromia Toxic Granulation Platelet Estimate Platelet Comment Polychromasia Poikilocytosis Anisocytosis Microcytosis Macrocytosis Spherocytes Target Cells Tear Drop Cells Ovalocytes [place] Cells Schistocytes PT with INR INR PTT (Actin FS) Fibrinogen Puncture Site ABG pH ABG pCO2 at Pt Temp ABG pO2 at Pt Temp ABG HCO3 ABG O2 Sat (Measured) ABG O2 Content ABG Base Excess Atul Test O2 Delivery Device Oxygen Flow Rate Vent Mode Vent Rate PEEP Pressure Support Vent Sodium Potassium Chloride Carbon Dioxide Anion Gap BUN Creatinine Est GFR (CKD-EPI)AfAm Est GFR (CKD-EPI)NonAf POC Glucometer [phone] Random Glucose Lactic Acid Calcium Phosphorus Magnesium Iron TIBC Iron Saturation Unsaturated IBC Ferritin Total Bilirubin AST ALT Alkaline Phosphatase Creatine Kinase Troponin I Total Protein Albumin Prealbumin Triglycerides Cholesterol Total LDL Cholesterol HDL Cholesterol Beta-Hydroxybutyrate Urine Color Urine Appearance Urine pH Ur Specific [place] Urine Protein Urine Glucose (UA) Urine Ketones Urine Blood Urine Nitrite Urine Bilirubin Urine Urobilinogen Ur Leukocyte Esterase Urine WBC (Auto) Urine RBC (Auto) U Epithel Cells (Auto) Urine Bacteria (Auto) Stool Occult Blood Acetone, Qual B-Hydroxybutyrate 03/23/19 03/23/19 03/23/19 05:10 05:10 05:10 WBC 12.9 H RBC 3.47 L Hgb 8.9 L Hct 27.2 L MCV 78.3 L MCH 25.5 L MCHC 32.6 RDW 22.8 H Plt Count 121 L D MPV 9.0 Absolute Neuts (auto) 9.9 H Total Counted Neutrophils % 77.0 Neutrophils % (Manual) Band Neutrophils % Lymphocytes % 17.9 Lymphocytes % (Manual) Monocytes % 3.3 L D Monocytes % (Manual) Eosinophils % 1.2 Eosinophils % (Manual) Basophils % 0.6 Basophils % (Manual) Myelocytes % (Man) Promyelocytes % (Man) Blast Cells % (Manual) Nucleated RBC % 0 Metamyelocytes Hypochromia Toxic Granulation Platelet Estimate Platelet Comment Polychromasia Poikilocytosis Anisocytosis Microcytosis Macrocytosis Spherocytes Target Cells Tear Drop Cells Ovalocytes [place] Cells Schistocytes PT with INR INR PTT (Actin FS) Fibrinogen Puncture Site ABG pH ABG pCO2 at Pt Temp ABG pO2 at Pt Temp ABG HCO3 ABG O2 Sat (Measured) ABG O2 Content ABG Base Excess Atul Test O2 Delivery Device Oxygen Flow Rate Vent Mode Vent Rate PEEP Pressure Support Vent Sodium 144 Potassium 3.5 Chloride 106 Carbon Dioxide 33 H Anion Gap 5 L BUN 19.3 H Creatinine 0.5 L Est GFR (CKD-EPI)AfAm 131.72 Est GFR (CKD-EPI)NonAf 113.65 POC Glucometer 26 Random Glucose 31 L* Lactic Acid Calcium 7.0 L Phosphorus 2.1 L Magnesium 2.2 Iron TIBC Iron Saturation Unsaturated IBC Ferritin Total Bilirubin 0.2 AST 21 ALT 11 L Alkaline Phosphatase 229 H Creatine Kinase Troponin I Total Protein 4.5 L Albumin 1.2 L Prealbumin Triglycerides Cholesterol Total LDL Cholesterol HDL Cholesterol Beta-Hydroxybutyrate Urine Color Urine Appearance Urine pH Ur Specific [place] Urine Protein Urine Glucose (UA) Urine Ketones Urine Blood Urine Nitrite Urine Bilirubin Urine Urobilinogen Ur Leukocyte Esterase Urine WBC (Auto) Urine RBC (Auto) U Epithel Cells (Auto) Urine Bacteria (Auto) Stool Occult Blood Acetone, Qual B-Hydroxybutyrate 03/23/19 03/23/19 03/23/19 05:45 07:44 09:05 WBC RBC Hgb Hct MCV MCH MCHC RDW Plt Count MPV Absolute Neuts (auto) Total Counted Neutrophils % Neutrophils % (Manual) Band Neutrophils % Lymphocytes % Lymphocytes % (Manual) Monocytes % Monocytes % (Manual) Eosinophils % Eosinophils % (Manual) Basophils % Basophils % (Manual) Myelocytes % (Man) Promyelocytes % (Man) Blast Cells % (Manual) Nucleated RBC % Metamyelocytes Hypochromia Toxic Granulation Platelet Estimate Platelet Comment Polychromasia Poikilocytosis Anisocytosis Microcytosis Macrocytosis Spherocytes Target Cells Tear Drop Cells Ovalocytes [place] Cells Schistocytes PT with INR INR PTT (Actin FS) Fibrinogen Puncture Site ABG pH ABG pCO2 at Pt Temp ABG pO2 at Pt Temp ABG HCO3 ABG O2 Sat (Measured) ABG O2 Content ABG Base Excess Atul Test O2 Delivery Device Oxygen Flow Rate Vent Mode Vent Rate PEEP Pressure Support Vent Sodium Potassium Chloride Carbon Dioxide Anion Gap BUN Creatinine Est GFR (CKD-EPI)AfAm Est GFR (CKD-EPI)NonAf POC Glucometer 84 [phone] Random Glucose Lactic Acid Calcium Phosphorus Magnesium Iron TIBC Iron Saturation Unsaturated IBC Ferritin Total Bilirubin AST ALT Alkaline Phosphatase Creatine Kinase Troponin I Total Protein Albumin Prealbumin Triglycerides Cholesterol Total LDL Cholesterol HDL Cholesterol Beta-Hydroxybutyrate Urine Color Urine Appearance Urine pH Ur Specific [place] Urine Protein Urine Glucose (UA) Urine Ketones Urine Blood Urine Nitrite Urine Bilirubin Urine Urobilinogen Ur Leukocyte Esterase Urine WBC (Auto) Urine RBC (Auto) U Epithel Cells (Auto) Urine Bacteria (Auto) Stool Occult Blood Acetone, Qual B-Hydroxybutyrate 03/23/19 03/23/19 03/23/19 11:25 13:44 16:30 WBC RBC Hgb Hct MCV MCH MCHC RDW Plt Count MPV Absolute Neuts (auto) Total Counted Neutrophils % Neutrophils % (Manual) Band Neutrophils % Lymphocytes % Lymphocytes % (Manual) Monocytes % Monocytes % (Manual) Eosinophils % Eosinophils % (Manual) Basophils % Basophils % (Manual) Myelocytes % (Man) Promyelocytes % (Man) Blast Cells % (Manual) Nucleated RBC % Metamyelocytes Hypochromia Toxic Granulation Platelet Estimate Platelet Comment Polychromasia Poikilocytosis Anisocytosis Microcytosis Macrocytosis Spherocytes Target Cells Tear Drop Cells Ovalocytes [place] Cells Schistocytes PT with INR INR PTT (Actin FS) Fibrinogen Puncture Site ABG pH ABG pCO2 at Pt Temp ABG pO2 at Pt Temp ABG HCO3 ABG O2 Sat (Measured) ABG O2 Content ABG Base Excess Atul Test O2 Delivery Device Oxygen Flow Rate Vent Mode Vent Rate PEEP Pressure Support Vent Sodium Potassium Chloride Carbon Dioxide Anion Gap BUN Creatinine Est GFR (CKD-EPI)AfAm Est GFR (CKD-EPI)NonAf POC Glucometer [phone] Random Glucose Lactic Acid Calcium Phosphorus Magnesium Iron TIBC Iron Saturation Unsaturated IBC Ferritin Total Bilirubin AST ALT Alkaline Phosphatase Creatine Kinase Troponin I Total Protein Albumin Prealbumin Triglycerides Cholesterol Total LDL Cholesterol HDL Cholesterol Beta-Hydroxybutyrate Urine Color Urine Appearance Urine pH Ur Specific [place] Urine Protein Urine Glucose (UA) Urine Ketones Urine Blood Urine Nitrite Urine Bilirubin Urine Urobilinogen Ur Leukocyte Esterase Urine WBC (Auto) Urine RBC (Auto) U Epithel Cells (Auto) Urine Bacteria (Auto) Stool Occult Blood Acetone, Qual B-Hydroxybutyrate 03/23/19 03/24/19 03/24/19 21:56 01:44 05:40 WBC 7.9 RBC 3.06 L Hgb 7.9 L Hct 24.2 L MCV 78.9 L MCH 25.9 MCHC 32.9 RDW 23.2 H Plt Count 95 L D MPV 8.1 Absolute Neuts (auto) 5.6 Total Counted Neutrophils % 71.4 Neutrophils % (Manual) Band Neutrophils % Lymphocytes % 20.4 Lymphocytes % (Manual) Monocytes % 4.3 Monocytes % (Manual) Eosinophils % 3.0 D Eosinophils % (Manual) Basophils % 0.9 Basophils % (Manual) Myelocytes % (Man) Promyelocytes % (Man) Blast Cells % (Manual) Nucleated RBC % 0 Metamyelocytes Hypochromia 0 Toxic Granulation Platelet Estimate Decreased Platelet Comment Polychromasia 1+ Poikilocytosis 0 Anisocytosis 1+ Microcytosis 1+ Macrocytosis 1+ Spherocytes Target Cells 2+ Tear Drop Cells Ovalocytes 1+ [place] Cells Schistocytes PT with INR INR PTT (Actin FS) Fibrinogen Puncture Site ABG pH ABG pCO2 at Pt Temp ABG pO2 at Pt Temp ABG HCO3 ABG O2 Sat (Measured) ABG O2 Content ABG Base Excess Atul Test O2 Delivery Device Oxygen Flow Rate Vent Mode Vent Rate PEEP Pressure Support Vent Sodium Potassium Chloride Carbon Dioxide Anion Gap BUN Creatinine Est GFR (CKD-EPI)AfAm Est GFR (CKD-EPI)NonAf POC Glucometer 255 120 Random Glucose Lactic Acid Calcium Phosphorus Magnesium Iron TIBC Iron Saturation Unsaturated IBC Ferritin Total Bilirubin AST ALT Alkaline Phosphatase Creatine Kinase Troponin I Total Protein Albumin Prealbumin Triglycerides Cholesterol Total LDL Cholesterol HDL Cholesterol Beta-Hydroxybutyrate Urine Color Urine Appearance Urine pH Ur Specific [place] Urine Protein Urine Glucose (UA) Urine Ketones Urine Blood Urine Nitrite Urine Bilirubin Urine Urobilinogen Ur Leukocyte Esterase Urine WBC (Auto) Urine RBC (Auto) U Epithel Cells (Auto) Urine Bacteria (Auto) Stool Occult Blood Acetone, Qual B-Hydroxybutyrate 03/24/19 03/24/19 03/24/19 05:40 06:03 11:56 WBC RBC Hgb Hct MCV MCH MCHC RDW Plt Count MPV Absolute Neuts (auto) Total Counted Neutrophils % Neutrophils % (Manual) Band Neutrophils % Lymphocytes % Lymphocytes % (Manual) Monocytes % Monocytes % (Manual) Eosinophils % Eosinophils % (Manual) Basophils % Basophils % (Manual) Myelocytes % (Man) Promyelocytes % (Man) Blast Cells % (Manual) Nucleated RBC % Metamyelocytes Hypochromia Toxic Granulation Platelet Estimate Platelet Comment Polychromasia Poikilocytosis Anisocytosis Microcytosis Macrocytosis Spherocytes Target Cells Tear Drop Cells Ovalocytes [place] Cells Schistocytes PT with INR INR PTT (Actin FS) Fibrinogen Puncture Site ABG pH ABG pCO2 at Pt Temp ABG pO2 at Pt Temp ABG HCO3 ABG O2 Sat (Measured) ABG O2 Content ABG Base Excess Atul Test O2 Delivery Device Oxygen Flow Rate Vent Mode Vent Rate PEEP Pressure Support Vent Sodium 141 Potassium 3.8 Chloride 104 Carbon Dioxide 31 Anion Gap 6 L BUN 14.5 Creatinine 0.4 L Est GFR (CKD-EPI)AfAm 141.75 Est GFR (CKD-EPI)NonAf 122.30 POC Glucometer 198 306 Random Glucose 207 H Lactic Acid Calcium 6.8 L* Phosphorus 2.0 L Magnesium 1.7 L Iron TIBC Iron Saturation Unsaturated IBC Ferritin Total Bilirubin 0.4 AST 14 L ALT 7 L Alkaline Phosphatase 170 H Creatine Kinase Troponin I Total Protein 3.9 L Albumin 1.1 L Prealbumin Triglycerides Cholesterol Total LDL Cholesterol HDL Cholesterol Beta-Hydroxybutyrate Urine Color Urine Appearance Urine pH Ur Specific [place] Urine Protein Urine Glucose (UA) Urine Ketones Urine Blood Urine Nitrite Urine Bilirubin Urine Urobilinogen Ur Leukocyte Esterase Urine WBC (Auto) Urine RBC (Auto) U Epithel Cells (Auto) Urine Bacteria (Auto) Stool Occult Blood Acetone, Qual B-Hydroxybutyrate 03/24/19 03/24/19 03/25/19 17:45 21:40 03:08 WBC RBC Hgb Hct MCV MCH MCHC RDW Plt Count MPV Absolute Neuts (auto) Total Counted Neutrophils % Neutrophils % (Manual) Band Neutrophils % Lymphocytes % Lymphocytes % (Manual) Monocytes % Monocytes % (Manual) Eosinophils % Eosinophils % (Manual) Basophils % Basophils % (Manual) Myelocytes % (Man) Promyelocytes % (Man) Blast Cells % (Manual) Nucleated RBC % Metamyelocytes Hypochromia Toxic Granulation Platelet Estimate Platelet Comment Polychromasia Poikilocytosis Anisocytosis Microcytosis Macrocytosis Spherocytes Target Cells Tear Drop Cells Ovalocytes [place] Cells Schistocytes PT with INR INR PTT (Actin FS) Fibrinogen Puncture Site ABG pH ABG pCO2 at Pt Temp ABG pO2 at Pt Temp ABG HCO3 ABG O2 Sat (Measured) ABG O2 Content ABG Base Excess Atul Test O2 Delivery Device Oxygen Flow Rate Vent Mode Vent Rate PEEP Pressure Support Vent Sodium Potassium Chloride Carbon Dioxide Anion Gap BUN Creatinine Est GFR (CKD-EPI)AfAm Est GFR (CKD-EPI)NonAf POC Glucometer [phone] Random Glucose Lactic Acid Calcium Phosphorus Magnesium Iron TIBC Iron Saturation Unsaturated IBC Ferritin Total Bilirubin AST ALT Alkaline Phosphatase Creatine Kinase Troponin I Total Protein Albumin Prealbumin Triglycerides Cholesterol Total LDL Cholesterol HDL Cholesterol Beta-Hydroxybutyrate Urine Color Urine Appearance Urine pH Ur Specific [place] Urine Protein Urine Glucose (UA) Urine Ketones Urine Blood Urine Nitrite Urine Bilirubin Urine Urobilinogen Ur Leukocyte Esterase Urine WBC (Auto) Urine RBC (Auto) U Epithel Cells (Auto) Urine Bacteria (Auto) Stool Occult Blood Acetone, Qual B-Hydroxybutyrate 03/25/19 03/25/19 03/25/19 05:30 05:30 05:32 WBC 8.6 RBC 3.42 L Hgb 8.9 L Hct 27.2 L MCV 79.4 L MCH 26.1 MCHC 32.8 RDW 23.7 H Plt Count 179 D MPV 8.2 Absolute Neuts (auto) 5.8 Total Counted Neutrophils % 67.7 Neutrophils % (Manual) Band Neutrophils % Lymphocytes % 23.2 Lymphocytes % (Manual) Monocytes % 6.0 Monocytes % (Manual) Eosinophils % 2.2 Eosinophils % (Manual) Basophils % 0.9 Basophils % (Manual) Myelocytes % (Man) Promyelocytes % (Man) Blast Cells % (Manual) Nucleated RBC % 0 Metamyelocytes Hypochromia Toxic Granulation Platelet Estimate Platelet Comment Polychromasia Poikilocytosis Anisocytosis Microcytosis Macrocytosis Spherocytes Target Cells Tear Drop Cells Ovalocytes [place] Cells Schistocytes PT with INR INR PTT (Actin FS) Fibrinogen Puncture Site ABG pH ABG pCO2 at Pt Temp ABG pO2 at Pt Temp ABG HCO3 ABG O2 Sat (Measured) ABG O2 Content ABG Base Excess Atul Test O2 Delivery Device Oxygen Flow Rate Vent Mode Vent Rate PEEP Pressure Support Vent Sodium 142 Potassium 3.5 Chloride 104 Carbon Dioxide 31 Anion Gap 7 L BUN 16.2 Creatinine 0.4 L Est GFR (CKD-EPI)AfAm 141.75 Est GFR (CKD-EPI)NonAf 122.30 POC Glucometer 118 Random Glucose 120 H Lactic Acid Calcium 7.2 L Phosphorus 2.0 L Magnesium 1.9 Iron TIBC Iron Saturation Unsaturated IBC Ferritin Total Bilirubin 0.2 AST 16 ALT 10 L Alkaline Phosphatase 184 H Creatine Kinase Troponin I Total Protein 4.6 L Albumin 1.2 L Prealbumin Triglycerides Cholesterol Total LDL Cholesterol HDL Cholesterol Beta-Hydroxybutyrate Urine Color Urine Appearance Urine pH Ur Specific [place] Urine Protein Urine Glucose (UA) Urine Ketones Urine Blood Urine Nitrite Urine Bilirubin Urine Urobilinogen Ur Leukocyte Esterase Urine WBC (Auto) Urine RBC (Auto) U Epithel Cells (Auto) Urine Bacteria (Auto) Stool Occult Blood Acetone, Qual B-Hydroxybutyrate 03/25/19 03/25/19 03/25/19 10:53 12:55 14:23 WBC RBC Hgb Hct MCV MCH MCHC RDW Plt Count MPV Absolute Neuts (auto) Total Counted Neutrophils % Neutrophils % (Manual) Band Neutrophils % Lymphocytes % Lymphocytes % (Manual) Monocytes % Monocytes % (Manual) Eosinophils % Eosinophils % (Manual) Basophils % Basophils % (Manual) Myelocytes % (Man) Promyelocytes % (Man) Blast Cells % (Manual) Nucleated RBC % Metamyelocytes Hypochromia Toxic Granulation Platelet Estimate Platelet Comment Polychromasia Poikilocytosis Anisocytosis Microcytosis Macrocytosis Spherocytes Target Cells Tear Drop Cells Ovalocytes [place] Cells Schistocytes PT with INR INR PTT (Actin FS) Fibrinogen Puncture Site ABG pH ABG pCO2 at Pt Temp ABG pO2 at Pt Temp ABG HCO3 ABG O2 Sat (Measured) ABG O2 Content ABG Base Excess Atul Test O2 Delivery Device Oxygen Flow Rate Vent Mode Vent Rate PEEP Pressure Support Vent Sodium 137 Potassium 3.7 Chloride 101 Carbon Dioxide 27 Anion Gap 9 BUN 19.9 H Creatinine 0.6 Est GFR (CKD-EPI)AfAm 124.05 Est GFR (CKD-EPI)NonAf 107.03 POC Glucometer 401 186 Random Glucose 312 H Lactic Acid Calcium 7.3 L Phosphorus Magnesium Iron TIBC Iron Saturation Unsaturated IBC Ferritin Total Bilirubin 0.3 AST 18 ALT 12 L Alkaline Phosphatase 216 H Creatine Kinase Troponin I Total Protein 5.2 L Albumin 1.4 L Prealbumin Triglycerides Cholesterol Total LDL Cholesterol HDL Cholesterol Beta-Hydroxybutyrate Urine Color Urine Appearance Urine pH Ur Specific [place] Urine Protein Urine Glucose (UA) Urine Ketones Urine Blood Urine Nitrite Urine Bilirubin Urine Urobilinogen Ur Leukocyte Esterase Urine WBC (Auto) Urine RBC (Auto) U Epithel Cells (Auto) Urine Bacteria (Auto) Stool Occult Blood Acetone, Qual B-Hydroxybutyrate 03/25/19 03/25/19 03/26/19 16:10 20:48 01:48 WBC RBC Hgb Hct MCV MCH MCHC RDW Plt Count MPV Absolute Neuts (auto) Total Counted Neutrophils % Neutrophils % (Manual) Band Neutrophils % Lymphocytes % Lymphocytes % (Manual) Monocytes % Monocytes % (Manual) Eosinophils % Eosinophils % (Manual) Basophils % Basophils % (Manual) Myelocytes % (Man) Promyelocytes % (Man) Blast Cells % (Manual) Nucleated RBC % Metamyelocytes Hypochromia Toxic Granulation Platelet Estimate Platelet Comment Polychromasia Poikilocytosis Anisocytosis Microcytosis Macrocytosis Spherocytes Target Cells Tear Drop Cells Ovalocytes [place] Cells Schistocytes PT with INR INR PTT (Actin FS) Fibrinogen Puncture Site ABG pH ABG pCO2 at Pt Temp ABG pO2 at Pt Temp ABG HCO3 ABG O2 Sat (Measured) ABG O2 Content ABG Base Excess Atul Test O2 Delivery Device Oxygen Flow Rate Vent Mode Vent Rate PEEP Pressure Support Vent Sodium Potassium Chloride Carbon Dioxide Anion Gap BUN Creatinine Est GFR (CKD-EPI)AfAm Est GFR (CKD-EPI)NonAf POC Glucometer [phone] Random Glucose Lactic Acid Calcium Phosphorus Magnesium Iron TIBC Iron Saturation Unsaturated IBC Ferritin Total Bilirubin AST ALT Alkaline Phosphatase Creatine Kinase Troponin I Total Protein Albumin Prealbumin Triglycerides Cholesterol Total LDL Cholesterol HDL Cholesterol Beta-Hydroxybutyrate Urine Color Urine Appearance Urine pH Ur Specific [place] Urine Protein Urine Glucose (UA) Urine Ketones Urine Blood Urine Nitrite Urine Bilirubin Urine Urobilinogen Ur Leukocyte Esterase Urine WBC (Auto) Urine RBC (Auto) U Epithel Cells (Auto) Urine Bacteria (Auto) Stool Occult Blood Acetone, Qual B-Hydroxybutyrate 03/26/19 03/26/19 03/26/19 05:06 06:00 06:00 WBC RBC Hgb Hct MCV MCH MCHC RDW Plt Count MPV Absolute Neuts (auto) Total Counted Neutrophils % Neutrophils % (Manual) Band Neutrophils % Lymphocytes % Lymphocytes % (Manual) Monocytes % Monocytes % (Manual) Eosinophils % Eosinophils % (Manual) Basophils % Basophils % (Manual) Myelocytes % (Man) Promyelocytes % (Man) Blast Cells % (Manual) Nucleated RBC % Metamyelocytes Hypochromia Toxic Granulation Platelet Estimate Platelet Comment Polychromasia Poikilocytosis Anisocytosis Microcytosis Macrocytosis Spherocytes Target Cells Tear Drop Cells Ovalocytes [place] Cells Schistocytes PT with INR 11.20 INR 0.95 PTT (Actin FS) 29.7 Fibrinogen Puncture Site ABG pH ABG pCO2 at Pt Temp ABG pO2 at Pt Temp ABG HCO3 ABG O2 Sat (Measured) ABG O2 Content ABG Base Excess Atul Test O2 Delivery Device Oxygen Flow Rate Vent Mode Vent Rate PEEP Pressure Support Vent Sodium 139 Potassium 3.8 Chloride 102 Carbon Dioxide 32 Anion Gap 5 L BUN 14.5 Creatinine 0.3 L Est GFR (CKD-EPI)AfAm 155.82 Est GFR (CKD-EPI)NonAf 134.44 POC Glucometer 153 Random Glucose 151 H Lactic Acid Calcium 7.1 L Phosphorus Magnesium Iron TIBC Iron Saturation Unsaturated IBC Ferritin Total Bilirubin 0.2 AST 15 ALT 9 L Alkaline Phosphatase 155 H Creatine Kinase Troponin I Total Protein 4.3 L Albumin 1.2 L Prealbumin Triglycerides Cholesterol Total LDL Cholesterol HDL Cholesterol Beta-Hydroxybutyrate Urine Color Urine Appearance Urine pH Ur Specific [place] Urine Protein Urine Glucose (UA) Urine Ketones Urine Blood Urine Nitrite Urine Bilirubin Urine Urobilinogen Ur Leukocyte Esterase Urine WBC (Auto) Urine RBC (Auto) U Epithel Cells (Auto) Urine Bacteria (Auto) Stool Occult Blood Acetone, Qual B-Hydroxybutyrate 03/26/19 03/26/19 03/26/19 06:00 06:00 10:53 WBC 8.5 RBC 2.92 L Hgb 7.6 L Hct 23.5 L MCV 80.5 MCH 26.1 MCHC 32.4 RDW 23.5 H Plt Count 231 D MPV 8.1 Absolute Neuts (auto) 5.4 Total Counted Neutrophils % 63.6 Neutrophils % (Manual) Band Neutrophils % Lymphocytes % 24.4 Lymphocytes % (Manual) Monocytes % 7.8 Monocytes % (Manual) Eosinophils % 3.2 Eosinophils % (Manual) Basophils % 1.0 Basophils % (Manual) Myelocytes % (Man) Promyelocytes % (Man) Blast Cells % (Manual) Nucleated RBC % 0 Metamyelocytes Hypochromia Toxic Granulation Platelet Estimate Platelet Comment Polychromasia Poikilocytosis Anisocytosis Microcytosis Macrocytosis Spherocytes Target Cells Tear Drop Cells Ovalocytes [place] Cells Schistocytes PT with INR INR PTT (Actin FS) Fibrinogen Puncture Site ABG pH ABG pCO2 at Pt Temp ABG pO2 at Pt Temp ABG HCO3 ABG O2 Sat (Measured) ABG O2 Content ABG Base Excess Atul Test O2 Delivery Device Oxygen Flow Rate Vent Mode Vent Rate PEEP Pressure Support Vent Sodium Potassium Chloride Carbon Dioxide Anion Gap BUN Creatinine Est GFR (CKD-EPI)AfAm Est GFR (CKD-EPI)NonAf POC Glucometer 356 Random Glucose Lactic Acid 2.4 H* Calcium Phosphorus Magnesium Iron TIBC Iron Saturation Unsaturated IBC Ferritin Total Bilirubin AST ALT Alkaline Phosphatase Creatine Kinase Troponin I Total Protein Albumin Prealbumin Triglycerides Cholesterol Total LDL Cholesterol HDL Cholesterol Beta-Hydroxybutyrate Urine Color Urine Appearance Urine pH Ur Specific [place] Urine Protein Urine Glucose (UA) Urine Ketones Urine Blood Urine Nitrite Urine Bilirubin Urine Urobilinogen Ur Leukocyte Esterase Urine WBC (Auto) Urine RBC (Auto) U Epithel Cells (Auto) Urine Bacteria (Auto) Stool Occult Blood Acetone, Qual B-Hydroxybutyrate 03/26/19 03/26/19 03/26/19 13:52 18:35 20:40 WBC 8.7 RBC 3.44 L Hgb 9.2 L Hct 28.1 L D MCV 81.7 MCH 26.7 MCHC 32.6 RDW 22.3 H Plt Count 262 MPV 8.1 Absolute Neuts (auto) 5.7 Total Counted Neutrophils % 65.2 Neutrophils % (Manual) Band Neutrophils % Lymphocytes % 20.6 Lymphocytes % (Manual) Monocytes % 9.8 Monocytes % (Manual) Eosinophils % 2.6 Eosinophils % (Manual) Basophils % 1.8 Basophils % (Manual) Myelocytes % (Man) Promyelocytes % (Man) Blast Cells % (Manual) Nucleated RBC % 0 Metamyelocytes Hypochromia Toxic Granulation Platelet Estimate Platelet Comment Polychromasia Poikilocytosis Anisocytosis Microcytosis Macrocytosis Spherocytes Target Cells Tear Drop Cells Ovalocytes [place] Cells Schistocytes PT with INR INR PTT (Actin FS) Fibrinogen Puncture Site ABG pH ABG pCO2 at Pt Temp ABG pO2 at Pt Temp ABG HCO3 ABG O2 Sat (Measured) ABG O2 Content ABG Base Excess Atul Test O2 Delivery Device Oxygen Flow Rate Vent Mode Vent Rate PEEP Pressure Support Vent Sodium Potassium Chloride Carbon Dioxide Anion Gap BUN Creatinine Est GFR (CKD-EPI)AfAm Est GFR (CKD-EPI)NonAf POC Glucometer [phone] Random Glucose Lactic Acid Calcium Phosphorus Magnesium Iron TIBC Iron Saturation Unsaturated IBC Ferritin Total Bilirubin AST ALT Alkaline Phosphatase Creatine Kinase Troponin I Total Protein Albumin Prealbumin Triglycerides Cholesterol Total LDL Cholesterol HDL Cholesterol Beta-Hydroxybutyrate Urine Color Urine Appearance Urine pH Ur Specific [place] Urine Protein Urine Glucose (UA) Urine Ketones Urine Blood Urine Nitrite Urine Bilirubin Urine Urobilinogen Ur Leukocyte Esterase Urine WBC (Auto) Urine RBC (Auto) U Epithel Cells (Auto) Urine Bacteria (Auto) Stool Occult Blood Acetone, Qual B-Hydroxybutyrate 03/26/19 03/27/19 03/27/19 22:42 02:18 06:00 WBC 7.1 RBC 3.22 L Hgb 8.8 L Hct 26.3 L MCV 81.6 MCH 27.2 MCHC 33.3 RDW 22.2 H Plt Count 269 MPV 7.8 Absolute Neuts (auto) 4.3 Total Counted Neutrophils % 60.6 Neutrophils % (Manual) Band Neutrophils % Lymphocytes % 22.8 Lymphocytes % (Manual) Monocytes % 12.0 H Monocytes % (Manual) Eosinophils % 3.9 Eosinophils % (Manual) Basophils % 0.7 Basophils % (Manual) Myelocytes % (Man) Promyelocytes % (Man) Blast Cells % (Manual) Nucleated RBC % 0 Metamyelocytes Hypochromia Toxic Granulation Platelet Estimate Adequate Platelet Comment Giant platelets Polychromasia Poikilocytosis 1+ Anisocytosis 2+ Microcytosis 1+ Macrocytosis Spherocytes 1+ Target Cells 1+ Tear Drop Cells 1+ Ovalocytes [place] Cells Schistocytes PT with INR INR PTT (Actin FS) Fibrinogen Puncture Site ABG pH ABG pCO2 at Pt Temp ABG pO2 at Pt Temp ABG HCO3 ABG O2 Sat (Measured) ABG O2 Content ABG Base Excess Atul Test O2 Delivery Device Oxygen Flow Rate Vent Mode Vent Rate PEEP Pressure Support Vent Sodium Potassium Chloride Carbon Dioxide Anion Gap BUN Creatinine Est GFR (CKD-EPI)AfAm Est GFR (CKD-EPI)NonAf POC Glucometer 122 173 Random Glucose Lactic Acid Calcium Phosphorus Magnesium Iron TIBC Iron Saturation Unsaturated IBC Ferritin Total Bilirubin AST ALT Alkaline Phosphatase Creatine Kinase Troponin I Total Protein Albumin Prealbumin Triglycerides Cholesterol Total LDL Cholesterol HDL Cholesterol Beta-Hydroxybutyrate Urine Color Urine Appearance Urine pH Ur Specific [place] Urine Protein Urine Glucose (UA) Urine Ketones Urine Blood Urine Nitrite Urine Bilirubin Urine Urobilinogen Ur Leukocyte Esterase Urine WBC (Auto) Urine RBC (Auto) U Epithel Cells (Auto) Urine Bacteria (Auto) Stool Occult Blood Acetone, Qual B-Hydroxybutyrate 03/27/19 03/27/19 03/27/19 06:00 06:43 11:10 WBC RBC Hgb Hct MCV MCH MCHC RDW Plt Count MPV Absolute Neuts (auto) Total Counted Neutrophils % Neutrophils % (Manual) Band Neutrophils % Lymphocytes % Lymphocytes % (Manual) Monocytes % Monocytes % (Manual) Eosinophils % Eosinophils % (Manual) Basophils % Basophils % (Manual) Myelocytes % (Man) Promyelocytes % (Man) Blast Cells % (Manual) Nucleated RBC % Metamyelocytes Hypochromia Toxic Granulation Platelet Estimate Platelet Comment Polychromasia Poikilocytosis Anisocytosis Microcytosis Macrocytosis Spherocytes Target Cells Tear Drop Cells Ovalocytes [place] Cells Schistocytes PT with INR INR PTT (Actin FS) Fibrinogen Puncture Site ABG pH ABG pCO2 at Pt Temp ABG pO2 at Pt Temp ABG HCO3 ABG O2 Sat (Measured) ABG O2 Content ABG Base Excess Atul Test O2 Delivery Device Oxygen Flow Rate Vent Mode Vent Rate PEEP Pressure Support Vent Sodium 139 Potassium 3.8 Chloride 102 Carbon Dioxide 31 Anion Gap 5 L BUN 16.5 Creatinine 0.3 L Est GFR (CKD-EPI)AfAm 155.82 Est GFR (CKD-EPI)NonAf 134.44 POC Glucometer 311 254 Random Glucose 260 H Lactic Acid Calcium 7.3 L Phosphorus 1.2 L Magnesium 1.8 Iron TIBC Iron Saturation Unsaturated IBC Ferritin Total Bilirubin 0.2 AST 19 ALT 10 L Alkaline Phosphatase 157 H Creatine Kinase Troponin I Total Protein 4.5 L Albumin 1.2 L Prealbumin Triglycerides Cholesterol Total LDL Cholesterol HDL Cholesterol Beta-Hydroxybutyrate Urine Color Urine Appearance Urine pH Ur Specific [place] Urine Protein Urine Glucose (UA) Urine Ketones Urine Blood Urine Nitrite Urine Bilirubin Urine Urobilinogen Ur Leukocyte Esterase Urine WBC (Auto) Urine RBC (Auto) U Epithel Cells (Auto) Urine Bacteria (Auto) Stool Occult Blood Acetone, Qual B-Hydroxybutyrate 03/27/19 03/27/19 03/27/19 14:16 18:17 21:18 WBC RBC Hgb Hct MCV MCH MCHC RDW Plt Count MPV Absolute Neuts (auto) Total Counted Neutrophils % Neutrophils % (Manual) Band Neutrophils % Lymphocytes % Lymphocytes % (Manual) Monocytes % Monocytes % (Manual) Eosinophils % Eosinophils % (Manual) Basophils % Basophils % (Manual) Myelocytes % (Man) Promyelocytes % (Man) Blast Cells % (Manual) Nucleated RBC % Metamyelocytes Hypochromia Toxic Granulation Platelet Estimate Platelet Comment Polychromasia Poikilocytosis Anisocytosis Microcytosis Macrocytosis Spherocytes Target Cells Tear Drop Cells Ovalocytes [place] Cells Schistocytes PT with INR INR PTT (Actin FS) Fibrinogen Puncture Site ABG pH ABG pCO2 at Pt Temp ABG pO2 at Pt Temp ABG HCO3 ABG O2 Sat (Measured) ABG O2 Content ABG Base Excess Atul Test O2 Delivery Device Oxygen Flow Rate Vent Mode Vent Rate PEEP Pressure Support Vent Sodium Potassium Chloride Carbon Dioxide Anion Gap BUN Creatinine Est GFR (CKD-EPI)AfAm Est GFR (CKD-EPI)NonAf POC Glucometer [phone] Random Glucose Lactic Acid Calcium Phosphorus Magnesium Iron TIBC Iron Saturation Unsaturated IBC Ferritin Total Bilirubin AST ALT Alkaline Phosphatase Creatine Kinase Troponin I Total Protein Albumin Prealbumin Triglycerides Cholesterol Total LDL Cholesterol HDL Cholesterol Beta-Hydroxybutyrate Urine Color Urine Appearance Urine pH Ur Specific [place] Urine Protein Urine Glucose (UA) Urine Ketones Urine Blood Urine Nitrite Urine Bilirubin Urine Urobilinogen Ur Leukocyte Esterase Urine WBC (Auto) Urine RBC (Auto) U Epithel Cells (Auto) Urine Bacteria (Auto) Stool Occult Blood Acetone, Qual B-Hydroxybutyrate 03/28/19 03/28/19 03/28/19 03:32 05:50 05:50 WBC 7.5 RBC 3.28 L Hgb 8.8 L Hct 27.3 L MCV 83.1 MCH 26.9 MCHC 32.4 RDW 22.9 H Plt Count 409 D MPV 7.8 Absolute Neuts (auto) 4.1 Total Counted Neutrophils % 54.9 Neutrophils % (Manual) Band Neutrophils % Lymphocytes % 26.7 Lymphocytes % (Manual) Monocytes % 13.0 H Monocytes % (Manual) Eosinophils % 3.9 Eosinophils % (Manual) Basophils % 1.5 Basophils % (Manual) Myelocytes % (Man) Promyelocytes % (Man) Blast Cells % (Manual) Nucleated RBC % 0 Metamyelocytes Hypochromia Toxic Granulation Platelet Estimate Platelet Comment Polychromasia Poikilocytosis Anisocytosis Microcytosis Macrocytosis Spherocytes Target Cells Tear Drop Cells Ovalocytes [place] Cells Schistocytes PT with INR INR PTT (Actin FS) Fibrinogen Puncture Site ABG pH ABG pCO2 at Pt Temp ABG pO2 at Pt Temp ABG HCO3 ABG O2 Sat (Measured) ABG O2 Content ABG Base Excess Atul Test O2 Delivery Device Oxygen Flow Rate Vent Mode Vent Rate PEEP Pressure Support Vent Sodium 141 Potassium 3.8 Chloride 102 Carbon Dioxide 33 H Anion Gap 6 L BUN 13.4 Creatinine 0.4 L Est GFR (CKD-EPI)AfAm 141.75 Est GFR (CKD-EPI)NonAf 122.30 POC Glucometer 218 Random Glucose 251 H Lactic Acid Calcium 7.6 L Phosphorus 1.9 L Magnesium 2.0 Iron TIBC Iron Saturation Unsaturated IBC Ferritin Total Bilirubin 0.2 AST 25 ALT 13 Alkaline Phosphatase 163 H Creatine Kinase Troponin I Total Protein 4.9 L Albumin 1.4 L Prealbumin Triglycerides Cholesterol Total LDL Cholesterol HDL Cholesterol Beta-Hydroxybutyrate Urine Color Urine Appearance Urine pH Ur Specific [place] Urine Protein Urine Glucose (UA) Urine Ketones Urine Blood Urine Nitrite Urine Bilirubin Urine Urobilinogen Ur Leukocyte Esterase Urine WBC (Auto) Urine RBC (Auto) U Epithel Cells (Auto) Urine Bacteria (Auto) Stool Occult Blood Acetone, Qual B-Hydroxybutyrate 03/28/19 03/28/19 03/28/19 06:22 10:07 10:59 WBC RBC Hgb Hct MCV MCH MCHC RDW Plt Count MPV Absolute Neuts (auto) Total Counted Neutrophils % Neutrophils % (Manual) Band Neutrophils % Lymphocytes % Lymphocytes % (Manual) Monocytes % Monocytes % (Manual) Eosinophils % Eosinophils % (Manual) Basophils % Basophils % (Manual) Myelocytes % (Man) Promyelocytes % (Man) Blast Cells % (Manual) Nucleated RBC % Metamyelocytes Hypochromia Toxic Granulation Platelet Estimate Platelet Comment Polychromasia Poikilocytosis Anisocytosis Microcytosis Macrocytosis Spherocytes Target Cells Tear Drop Cells Ovalocytes [place] Cells Schistocytes PT with INR INR PTT (Actin FS) Fibrinogen Puncture Site ABG pH ABG pCO2 at Pt Temp ABG pO2 at Pt Temp ABG HCO3 ABG O2 Sat (Measured) ABG O2 Content ABG Base Excess Atul Test O2 Delivery Device Oxygen Flow Rate Vent Mode Vent Rate PEEP Pressure Support Vent Sodium Potassium Chloride Carbon Dioxide Anion Gap BUN Creatinine Est GFR (CKD-EPI)AfAm Est GFR (CKD-EPI)NonAf POC Glucometer 222 136 Random Glucose Lactic Acid Calcium Phosphorus Magnesium Iron TIBC Iron Saturation Unsaturated IBC Ferritin Total Bilirubin AST ALT Alkaline Phosphatase Creatine Kinase Troponin I Total Protein Albumin Prealbumin Triglycerides Cholesterol Total LDL Cholesterol HDL Cholesterol Beta-Hydroxybutyrate Urine Color Yellow Urine Appearance Clear Urine pH 6.0 Ur Specific [place] 1.029 Urine Protein Trace Urine Glucose (UA) Negative Urine Ketones Trace Urine Blood Nht Urine Nitrite Negative Urine Bilirubin Negative Urine Urobilinogen 0.2 Ur Leukocyte Esterase Negative Urine WBC (Auto) #forced Urine RBC (Auto) U Epithel Cells (Auto) Urine Bacteria (Auto) Stool Occult Blood Acetone, Qual B-Hydroxybutyrate 03/28/19 03/28/19 03/28/19 14:56 14:58 18:18 WBC RBC Hgb Hct MCV MCH MCHC RDW Plt Count MPV Absolute Neuts (auto) Total Counted Neutrophils % Neutrophils % (Manual) Band Neutrophils % Lymphocytes % Lymphocytes % (Manual) Monocytes % Monocytes % (Manual) Eosinophils % Eosinophils % (Manual) Basophils % Basophils % (Manual) Myelocytes % (Man) Promyelocytes % (Man) Blast Cells % (Manual) Nucleated RBC % Metamyelocytes Hypochromia Toxic Granulation Platelet Estimate Platelet Comment Polychromasia Poikilocytosis Anisocytosis Microcytosis Macrocytosis Spherocytes Target Cells Tear Drop Cells Ovalocytes [place] Cells Schistocytes PT with INR INR PTT (Actin FS) Fibrinogen Puncture Site ABG pH ABG pCO2 at Pt Temp ABG pO2 at Pt Temp ABG HCO3 ABG O2 Sat (Measured) ABG O2 Content ABG Base Excess Atul Test O2 Delivery Device Oxygen Flow Rate Vent Mode Vent Rate PEEP Pressure Support Vent Sodium Potassium Chloride Carbon Dioxide Anion Gap BUN Creatinine Est GFR (CKD-EPI)AfAm Est GFR (CKD-EPI)NonAf POC Glucometer [phone] Random Glucose Lactic Acid Calcium Phosphorus Magnesium Iron TIBC Iron Saturation Unsaturated IBC Ferritin Total Bilirubin AST ALT Alkaline Phosphatase Creatine Kinase Troponin I Total Protein Albumin Prealbumin Triglycerides Cholesterol Total LDL Cholesterol HDL Cholesterol Beta-Hydroxybutyrate Urine Color Urine Appearance Urine pH Ur Specific [place] Urine Protein Urine Glucose (UA) Urine Ketones Urine Blood Urine Nitrite Urine Bilirubin Urine Urobilinogen Ur Leukocyte Esterase Urine WBC (Auto) Urine RBC (Auto) U Epithel Cells (Auto) Urine Bacteria (Auto) Stool Occult Blood Acetone, Qual B-Hydroxybutyrate 03/28/19 03/28/19 03/29/19 21:40 23:04 01:34 WBC RBC Hgb Hct MCV MCH MCHC RDW Plt Count MPV Absolute Neuts (auto) Total Counted Neutrophils % Neutrophils % (Manual) Band Neutrophils % Lymphocytes % Lymphocytes % (Manual) Monocytes % Monocytes % (Manual) Eosinophils % Eosinophils % (Manual) Basophils % Basophils % (Manual) Myelocytes % (Man) Promyelocytes % (Man) Blast Cells % (Manual) Nucleated RBC % Metamyelocytes Hypochromia Toxic Granulation Platelet Estimate Platelet Comment Polychromasia Poikilocytosis Anisocytosis Microcytosis Macrocytosis Spherocytes Target Cells Tear Drop Cells Ovalocytes [place] Cells Schistocytes PT with INR INR PTT (Actin FS) Fibrinogen Puncture Site ABG pH ABG pCO2 at Pt Temp ABG pO2 at Pt Temp ABG HCO3 ABG O2 Sat (Measured) ABG O2 Content ABG Base Excess Atul Test O2 Delivery Device Oxygen Flow Rate Vent Mode Vent Rate PEEP Pressure Support Vent Sodium Potassium Chloride Carbon Dioxide Anion Gap BUN Creatinine Est GFR (CKD-EPI)AfAm Est GFR (CKD-EPI)NonAf POC Glucometer [phone] Random Glucose Lactic Acid Calcium Phosphorus Magnesium Iron TIBC Iron Saturation Unsaturated IBC Ferritin Total Bilirubin AST ALT Alkaline Phosphatase Creatine Kinase Troponin I Total Protein Albumin Prealbumin Triglycerides Cholesterol Total LDL Cholesterol HDL Cholesterol Beta-Hydroxybutyrate Urine Color Urine Appearance Urine pH Ur Specific [place] Urine Protein Urine Glucose (UA) Urine Ketones Urine Blood Urine Nitrite Urine Bilirubin Urine Urobilinogen Ur Leukocyte Esterase Urine WBC (Auto) Urine RBC (Auto) U Epithel Cells (Auto) Urine Bacteria (Auto) Stool Occult Blood Acetone, Qual B-Hydroxybutyrate 03/29/19 03/29/19 03/29/19 05:08 06:00 06:00 WBC 8.4 RBC 3.08 L Hgb 8.5 L Hct 25.6 L MCV 83.2 MCH 27.8 MCHC 33.4 RDW 23.7 H Plt Count 511 H D MPV 7.6 Absolute Neuts (auto) Total Counted Neutrophils % Neutrophils % (Manual) Band Neutrophils % Lymphocytes % Lymphocytes % (Manual) Monocytes % Monocytes % (Manual) Eosinophils % Eosinophils % (Manual) Basophils % Basophils % (Manual) Myelocytes % (Man) Promyelocytes % (Man) Blast Cells % (Manual) Nucleated RBC % Metamyelocytes Hypochromia Toxic Granulation Platelet Estimate Platelet Comment Polychromasia Poikilocytosis Anisocytosis Microcytosis Macrocytosis Spherocytes Target Cells Tear Drop Cells Ovalocytes [place] Cells Schistocytes PT with INR INR PTT (Actin FS) Fibrinogen Puncture Site ABG pH ABG pCO2 at Pt Temp ABG pO2 at Pt Temp ABG HCO3 ABG O2 Sat (Measured) ABG O2 Content ABG Base Excess Atul Test O2 Delivery Device Oxygen Flow Rate Vent Mode Vent Rate PEEP Pressure Support Vent Sodium 140 Potassium 3.9 Chloride 99 Carbon Dioxide 35 H Anion Gap 6 L BUN 16.3 Creatinine 0.4 L Est GFR (CKD-EPI)AfAm 141.75 Est GFR (CKD-EPI)NonAf 122.30 POC Glucometer 150 Random Glucose 264 H Lactic Acid Calcium 7.4 L Phosphorus 1.9 L Magnesium 2.1 Iron TIBC Iron Saturation Unsaturated IBC Ferritin Total Bilirubin 0.2 AST 25 ALT 12 L Alkaline Phosphatase 156 H Creatine Kinase Troponin I Total Protein 5.2 L Albumin 1.5 L Prealbumin Triglycerides Cholesterol Total LDL Cholesterol HDL Cholesterol Beta-Hydroxybutyrate Urine Color Urine Appearance Urine pH Ur Specific [place] Urine Protein Urine Glucose (UA) Urine Ketones Urine Blood Urine Nitrite Urine Bilirubin Urine Urobilinogen Ur Leukocyte Esterase Urine WBC (Auto) Urine RBC (Auto) U Epithel Cells (Auto) Urine Bacteria (Auto) Stool Occult Blood Acetone, Qual B-Hydroxybutyrate 03/29/19 03/29/19 03/29/19 10:32 10:34 14:03 WBC RBC Hgb Hct MCV MCH MCHC RDW Plt Count MPV Absolute Neuts (auto) Total Counted Neutrophils % Neutrophils % (Manual) Band Neutrophils % Lymphocytes % Lymphocytes % (Manual) Monocytes % Monocytes % (Manual) Eosinophils % Eosinophils % (Manual) Basophils % Basophils % (Manual) Myelocytes % (Man) Promyelocytes % (Man) Blast Cells % (Manual) Nucleated RBC % Metamyelocytes Hypochromia Toxic Granulation Platelet Estimate Platelet Comment Polychromasia Poikilocytosis Anisocytosis Microcytosis Macrocytosis Spherocytes Target Cells Tear Drop Cells Ovalocytes [place] Cells Schistocytes PT with INR INR PTT (Actin FS) Fibrinogen Puncture Site ABG pH ABG pCO2 at Pt Temp ABG pO2 at Pt Temp ABG HCO3 ABG O2 Sat (Measured) ABG O2 Content ABG Base Excess Atul Test O2 Delivery Device Oxygen Flow Rate Vent Mode Vent Rate PEEP Pressure Support Vent Sodium Potassium Chloride Carbon Dioxide Anion Gap BUN Creatinine Est GFR (CKD-EPI)AfAm Est GFR (CKD-EPI)NonAf POC Glucometer [phone] Random Glucose Lactic Acid Calcium Phosphorus Magnesium Iron TIBC Iron Saturation Unsaturated IBC Ferritin Total Bilirubin AST ALT Alkaline Phosphatase Creatine Kinase Troponin I Total Protein Albumin Prealbumin Triglycerides Cholesterol Total LDL Cholesterol HDL Cholesterol Beta-Hydroxybutyrate Urine Color Urine Appearance Urine pH Ur Specific [place] Urine Protein Urine Glucose (UA) Urine Ketones Urine Blood Urine Nitrite Urine Bilirubin Urine Urobilinogen Ur Leukocyte Esterase Urine WBC (Auto) Urine RBC (Auto) U Epithel Cells (Auto) Urine Bacteria (Auto) Stool Occult Blood Acetone, Qual B-Hydroxybutyrate 03/29/19 03/29/19 03/29/19 18:00 19:41 21:54 WBC RBC Hgb Hct MCV MCH MCHC RDW Plt Count MPV Absolute Neuts (auto) Total Counted Neutrophils % Neutrophils % (Manual) Band Neutrophils % Lymphocytes % Lymphocytes % (Manual) Monocytes % Monocytes % (Manual) Eosinophils % Eosinophils % (Manual) Basophils % Basophils % (Manual) Myelocytes % (Man) Promyelocytes % (Man) Blast Cells % (Manual) Nucleated RBC % Metamyelocytes Hypochromia Toxic Granulation Platelet Estimate Platelet Comment Polychromasia Poikilocytosis Anisocytosis Microcytosis Macrocytosis Spherocytes Target Cells Tear Drop Cells Ovalocytes [place] Cells Schistocytes PT with INR INR PTT (Actin FS) Fibrinogen Puncture Site ABG pH ABG pCO2 at Pt Temp ABG pO2 at Pt Temp ABG HCO3 ABG O2 Sat (Measured) ABG O2 Content ABG Base Excess Atul Test O2 Delivery Device Oxygen Flow Rate Vent Mode Vent Rate PEEP Pressure Support Vent Sodium Potassium Chloride Carbon Dioxide Anion Gap BUN Creatinine Est GFR (CKD-EPI)AfAm Est GFR (CKD-EPI)NonAf POC Glucometer 70 [phone] Random Glucose Lactic Acid Calcium Phosphorus Magnesium Iron TIBC Iron Saturation Unsaturated IBC Ferritin Total Bilirubin AST ALT Alkaline Phosphatase Creatine Kinase Troponin I Total Protein Albumin Prealbumin Triglycerides Cholesterol Total LDL Cholesterol HDL Cholesterol Beta-Hydroxybutyrate Urine Color Urine Appearance Urine pH Ur Specific [place] Urine Protein Urine Glucose (UA) Urine Ketones Urine Blood Urine Nitrite Urine Bilirubin Urine Urobilinogen Ur Leukocyte Esterase Urine WBC (Auto) Urine RBC (Auto) U Epithel Cells (Auto) Urine Bacteria (Auto) Stool Occult Blood Acetone, Qual B-Hydroxybutyrate 03/30/19 03/30/19 03/30/19 01:39 06:06 06:39 WBC RBC Hgb Hct MCV MCH MCHC RDW Plt Count MPV Absolute Neuts (auto) Total Counted Neutrophils % Neutrophils % (Manual) Band Neutrophils % Lymphocytes % Lymphocytes % (Manual) Monocytes % Monocytes % (Manual) Eosinophils % Eosinophils % (Manual) Basophils % Basophils % (Manual) Myelocytes % (Man) Promyelocytes % (Man) Blast Cells % (Manual) Nucleated RBC % Metamyelocytes Hypochromia Toxic Granulation Platelet Estimate Platelet Comment Polychromasia Poikilocytosis Anisocytosis Microcytosis Macrocytosis Spherocytes Target Cells Tear Drop Cells Ovalocytes [place] Cells Schistocytes PT with INR INR PTT (Actin FS) Fibrinogen Puncture Site ABG pH ABG pCO2 at Pt Temp ABG pO2 at Pt Temp ABG HCO3 ABG O2 Sat (Measured) ABG O2 Content ABG Base Excess Atul Test O2 Delivery Device Oxygen Flow Rate Vent Mode Vent Rate PEEP Pressure Support Vent Sodium Potassium Chloride Carbon Dioxide Anion Gap BUN Creatinine Est GFR (CKD-EPI)AfAm Est GFR (CKD-EPI)NonAf POC Glucometer [phone] Random Glucose Lactic Acid Calcium Phosphorus Magnesium Iron TIBC Iron Saturation Unsaturated IBC Ferritin Total Bilirubin AST ALT Alkaline Phosphatase Creatine Kinase Troponin I Total Protein Albumin Prealbumin Triglycerides Cholesterol Total LDL Cholesterol HDL Cholesterol Beta-Hydroxybutyrate Urine Color Urine Appearance Urine pH Ur Specific [place] Urine Protein Urine Glucose (UA) Urine Ketones Urine Blood Urine Nitrite Urine Bilirubin Urine Urobilinogen Ur Leukocyte Esterase Urine WBC (Auto) Urine RBC (Auto) U Epithel Cells (Auto) Urine Bacteria (Auto) Stool Occult Blood Acetone, Qual B-Hydroxybutyrate 03/30/19 03/30/19 03/30/19 08:50 08:50 10:29 WBC [employer] RBC [employer]liance [employer]ic Hgb Electrical [employer]liance [employer]ic Hct Electrical Appliance [employer]ic MCV Electrical [employer]liance [employer]ic MCH Electrical Appliance [employer]ic MCHC Electrical Appliance Mechanic RDW Electrical Appliance [employer]ic Plt Count Electrical [employer]liance [employer]ic MPV Electrical [employer]liance [employer]ic Absolute Neuts (auto) Electrical Appliance Mechanic Total Counted Neutrophils % Electrical Appliance [employer]ic Neutrophils % (Manual) Band Neutrophils % Lymphocytes % Electrical Appliance Mechanic Lymphocytes % (Manual) Monocytes % Electrical Appliance [employer]ic Monocytes % (Manual) Eosinophils % Electrical [employer]liance [employer]ic Eosinophils % (Manual) Basophils % Electrical Appliance [employer]ic Basophils % (Manual) Myelocytes % (Man) Promyelocytes % (Man) Blast Cells % (Manual) Nucleated RBC % Electrical Appliance Mechanic Metamyelocytes Hypochromia Toxic Granulation Platelet Estimate Platelet Comment Polychromasia Poikilocytosis Anisocytosis Microcytosis Macrocytosis Spherocytes Target Cells Tear Drop Cells Ovalocytes [place] Cells Schistocytes PT with INR INR PTT (Actin FS) Fibrinogen Puncture Site ABG pH ABG pCO2 at Pt Temp ABG pO2 at Pt Temp ABG HCO3 ABG O2 Sat (Measured) ABG O2 Content ABG Base Excess Atul Test O2 Delivery Device Oxygen Flow Rate Vent Mode Vent Rate PEEP Pressure Support Vent Sodium 147 H Potassium 3.5 Chloride 105 Carbon Dioxide 34 H Anion Gap 7 L BUN 17.6 Creatinine 0.3 L Est GFR (CKD-EPI)AfAm 155.82 Est GFR (CKD-EPI)NonAf 134.44 POC Glucometer 222 Random Glucose 99 Lactic Acid Calcium 7.9 L Phosphorus 2.5 Magnesium 2.2 Iron TIBC Iron Saturation Unsaturated IBC Ferritin Total Bilirubin 0.2 AST 21 ALT 11 L Alkaline Phosphatase 137 H Creatine Kinase Troponin I Total Protein 5.2 L Albumin 1.5 L Prealbumin Triglycerides Cholesterol Total LDL Cholesterol HDL Cholesterol Beta-Hydroxybutyrate Urine Color Urine Appearance Urine pH Ur Specific [place] Urine Protein Urine Glucose (UA) Urine Ketones Urine Blood Urine Nitrite Urine Bilirubin Urine Urobilinogen Ur Leukocyte Esterase Urine WBC (Auto) Urine RBC (Auto) U Epithel Cells (Auto) Urine Bacteria (Auto) Stool Occult Blood Acetone, Qual B-Hydroxybutyrate 03/30/19 03/30/19 03/30/19 14:32 18:21 21:53 WBC RBC Hgb Hct MCV MCH MCHC RDW Plt Count MPV Absolute Neuts (auto) Total Counted Neutrophils % Neutrophils % (Manual) Band Neutrophils % Lymphocytes % Lymphocytes % (Manual) Monocytes % Monocytes % (Manual) Eosinophils % Eosinophils % (Manual) Basophils % Basophils % (Manual) Myelocytes % (Man) Promyelocytes % (Man) Blast Cells % (Manual) Nucleated RBC % Metamyelocytes Hypochromia Toxic Granulation Platelet Estimate Platelet Comment Polychromasia Poikilocytosis Anisocytosis Microcytosis Macrocytosis Spherocytes Target Cells Tear Drop Cells Ovalocytes Jose [facility] Cells Schistocytes PT with INR INR PTT (Actin FS) Fibrinogen Puncture Site ABG pH ABG pCO2 at Pt Temp ABG pO2 at Pt Temp ABG HCO3 ABG O2 Sat (Measured) ABG O2 Content ABG Base Excess Atul Test O2 Delivery Device Oxygen Flow Rate Vent Mode Vent Rate PEEP Pressure Support Vent Sodium Potassium Chloride Carbon Dioxide Anion Gap BUN Creatinine Est GFR (CKD-EPI)AfAm Est GFR (CKD-EPI)NonAf POC Glucometer 138 330 110 Random Glucose Lactic Acid Calcium Phosphorus Magnesium Iron TIBC Iron Saturation Unsaturated IBC Ferritin Total Bilirubin AST ALT Alkaline Phosphatase Creatine Kinase Troponin I Total Protein Albumin Prealbumin Triglycerides Cholesterol Total LDL Cholesterol HDL Cholesterol Beta-Hydroxybutyrate Urine Color Urine Appearance Urine pH Ur Specific [place] Urine Protein Urine Glucose (UA) Urine Ketones Urine Blood Urine Nitrite Urine Bilirubin Urine Urobilinogen Ur Leukocyte Esterase Urine WBC (Auto) Urine RBC (Auto) U Epithel Cells (Auto) Urine Bacteria (Auto) Stool Occult Blood Acetone, Qual B-Hydroxybutyrate 03/31/19 03/31/19 03/31/19 02:50 06:00 06:00 WBC 7.7 RBC 2.58 L Hgb 7.1 L Hct 22.0 L MCV 85.0 MCH 27.4 MCHC 32.3 RDW 24.3 H Plt Count 540 H MPV 7.7 Absolute Neuts (auto) 6.0 Total Counted Neutrophils % 77.6 D Neutrophils % (Manual) Band Neutrophils % Lymphocytes % 12.9 D Lymphocytes % (Manual) Monocytes % 7.1 Monocytes % (Manual) Eosinophils % 0.6 D Eosinophils % (Manual) Basophils % 1.8 Basophils % (Manual) Myelocytes % (Man) Promyelocytes % (Man) Blast Cells % (Manual) Nucleated RBC % 0 Metamyelocytes Hypochromia Toxic Granulation Platelet Estimate Platelet Comment Polychromasia Poikilocytosis Anisocytosis Microcytosis Macrocytosis Spherocytes Target Cells Tear Drop Cells Ovalocytes [place] Cells Schistocytes PT with INR INR PTT (Actin FS) Fibrinogen Puncture Site ABG pH ABG pCO2 at Pt Temp ABG pO2 at Pt Temp ABG HCO3 ABG O2 Sat (Measured) ABG O2 Content ABG Base Excess Atul Test O2 Delivery Device Oxygen Flow Rate Vent Mode Vent Rate PEEP Pressure Support Vent Sodium 143 Potassium 3.1 L Chloride 105 Carbon Dioxide 26 Anion Gap 12 BUN 15.9 Creatinine 0.5 L Est GFR (CKD-EPI)AfAm 131.72 Est GFR (CKD-EPI)NonAf 113.65 POC Glucometer 387 Random Glucose 157 H Lactic Acid Calcium 7.6 L Phosphorus 1.7 L Magnesium 2.0 Iron TIBC Iron Saturation Unsaturated IBC Ferritin Total Bilirubin 0.3 AST 19 ALT 13 Alkaline Phosphatase 130 H Creatine Kinase Troponin I Total Protein 5.0 L Albumin 1.6 L Prealbumin Triglycerides Cholesterol Total LDL Cholesterol HDL Cholesterol Beta-Hydroxybutyrate Urine Color Urine Appearance Urine pH Ur Specific [place] Urine Protein Urine Glucose (UA) Urine Ketones Urine Blood Urine Nitrite Urine Bilirubin Urine Urobilinogen Ur Leukocyte Esterase Urine WBC (Auto) Urine RBC (Auto) U Epithel Cells (Auto) Urine Bacteria (Auto) Stool Occult Blood Acetone, Qual B-Hydroxybutyrate 03/31/19 03/31/19 03/31/19 06:43 12:18 15:09 WBC RBC Hgb Hct MCV MCH MCHC RDW Plt Count MPV Absolute Neuts (auto) Total Counted Neutrophils % Neutrophils % (Manual) Band Neutrophils % Lymphocytes % Lymphocytes % (Manual) Monocytes % Monocytes % (Manual) Eosinophils % Eosinophils % (Manual) Basophils % Basophils % (Manual) Myelocytes % (Man) Promyelocytes % (Man) Blast Cells % (Manual) Nucleated RBC % Metamyelocytes Hypochromia Toxic Granulation Platelet Estimate Platelet Comment Polychromasia Poikilocytosis Anisocytosis Microcytosis Macrocytosis Spherocytes Target Cells Tear Drop Cells Ovalocytes [place] Cells Schistocytes PT with INR INR PTT (Actin FS) Fibrinogen Puncture Site ABG pH ABG pCO2 at Pt Temp ABG pO2 at Pt Temp ABG HCO3 ABG O2 Sat (Measured) ABG O2 Content ABG Base Excess Atul Test O2 Delivery Device Oxygen Flow Rate Vent Mode Vent Rate PEEP Pressure Support Vent Sodium Potassium Chloride Carbon Dioxide Anion Gap BUN Creatinine Est GFR (CKD-EPI)AfAm Est GFR (CKD-EPI)NonAf POC Glucometer [phone] Random Glucose Lactic Acid Calcium Phosphorus Magnesium Iron TIBC Iron Saturation Unsaturated IBC Ferritin Total Bilirubin AST ALT Alkaline Phosphatase Creatine Kinase Troponin I Total Protein Albumin Prealbumin Triglycerides Cholesterol Total LDL Cholesterol HDL Cholesterol Beta-Hydroxybutyrate Urine Color Urine Appearance Urine pH Ur Specific [place] Urine Protein Urine Glucose (UA) Urine Ketones Urine Blood Urine Nitrite Urine Bilirubin Urine Urobilinogen Ur Leukocyte Esterase Urine WBC (Auto) Urine RBC (Auto) U Epithel Cells (Auto) Urine Bacteria (Auto) Stool Occult Blood Acetone, Qual B-Hydroxybutyrate 03/31/19 03/31/19 04/01/19 17:22 22:27 02:36 WBC RBC Hgb Hct MCV MCH MCHC RDW Plt Count MPV Absolute Neuts (auto) Total Counted Neutrophils % Neutrophils % (Manual) Band Neutrophils % Lymphocytes % Lymphocytes % (Manual) Monocytes % Monocytes % (Manual) Eosinophils % Eosinophils % (Manual) Basophils % Basophils % (Manual) Myelocytes % (Man) Promyelocytes % (Man) Blast Cells % (Manual) Nucleated RBC % Metamyelocytes Hypochromia Toxic Granulation Platelet Estimate Platelet Comment Polychromasia Poikilocytosis Anisocytosis Microcytosis Macrocytosis Spherocytes Target Cells Tear Drop Cells Ovalocytes [place] Cells Schistocytes PT with INR INR PTT (Actin FS) Fibrinogen Puncture Site ABG pH ABG pCO2 at Pt Temp ABG pO2 at Pt Temp ABG HCO3 ABG O2 Sat (Measured) ABG O2 Content ABG Base Excess Atul Test O2 Delivery Device Oxygen Flow Rate Vent Mode Vent Rate PEEP Pressure Support Vent Sodium Potassium Chloride Carbon Dioxide Anion Gap BUN Creatinine Est GFR (CKD-EPI)AfAm Est GFR (CKD-EPI)NonAf POC Glucometer [phone] Random Glucose Lactic Acid Calcium Phosphorus Magnesium Iron TIBC Iron Saturation Unsaturated IBC Ferritin Total Bilirubin AST ALT Alkaline Phosphatase Creatine Kinase Troponin I Total Protein Albumin Prealbumin Triglycerides Cholesterol Total LDL Cholesterol HDL Cholesterol Beta-Hydroxybutyrate Urine Color Urine Appearance Urine pH Ur Specific [place] Urine Protein Urine Glucose (UA) Urine Ketones Urine Blood Urine Nitrite Urine Bilirubin Urine Urobilinogen Ur Leukocyte Esterase Urine WBC (Auto) Urine RBC (Auto) U Epithel Cells (Auto) Urine Bacteria (Auto) Stool Occult Blood Acetone, Qual B-Hydroxybutyrate 04/01/19 04/01/19 04/01/19 06:07 06:43 06:43 WBC 12.8 H RBC 3.43 L Hgb 9.4 L Hct 29.8 L D MCV 87.0 MCH 27.5 MCHC 31.6 L RDW 23.2 H Plt Count 691 H D MPV 7.5 Absolute Neuts (auto) 11.4 H Total Counted Neutrophils % 88.8 H Neutrophils % (Manual) Band Neutrophils % Lymphocytes % 5.8 L D Lymphocytes % (Manual) Monocytes % 4.8 Monocytes % (Manual) Eosinophils % 0.0 D Eosinophils % (Manual) Basophils % 0.6 Basophils % (Manual) Myelocytes % (Man) Promyelocytes % (Man) Blast Cells % (Manual) Nucleated RBC % 0 Metamyelocytes Hypochromia Toxic Granulation Platelet Estimate Platelet Comment Polychromasia Poikilocytosis Anisocytosis Microcytosis Macrocytosis Spherocytes Target Cells Tear Drop Cells Ovalocytes [place] Cells Schistocytes PT with INR INR PTT (Actin FS) Fibrinogen Puncture Site ABG pH ABG pCO2 at Pt Temp ABG pO2 at Pt Temp ABG HCO3 ABG O2 Sat (Measured) ABG O2 Content ABG Base Excess Atul Test O2 Delivery Device Oxygen Flow Rate Vent Mode Vent Rate PEEP Pressure Support Vent Sodium 149 H Potassium 3.4 L Chloride 112 H Carbon Dioxide 16 L Anion Gap 20 H BUN 15.4 Creatinine 0.5 L Est GFR (CKD-EPI)AfAm 131.72 Est GFR (CKD-EPI)NonAf 113.65 POC Glucometer 247 Random Glucose 254 H Lactic Acid Calcium 8.4 L Phosphorus Magnesium 2.2 Iron TIBC Iron Saturation Unsaturated IBC Ferritin Total Bilirubin 0.6 AST 27 ALT 17 Alkaline Phosphatase 174 H Creatine Kinase Troponin I Total Protein 6.5 Albumin 2.1 L Prealbumin Triglycerides Cholesterol Total LDL Cholesterol HDL Cholesterol Beta-Hydroxybutyrate Urine Color Urine Appearance Urine pH Ur Specific [place] Urine Protein Urine Glucose (UA) Urine Ketones Urine Blood Urine Nitrite Urine Bilirubin Urine Urobilinogen Ur Leukocyte Esterase Urine WBC (Auto) Urine RBC (Auto) U Epithel Cells (Auto) Urine Bacteria (Auto) Stool Occult Blood Acetone, Qual B-Hydroxybutyrate 04/01/19 04/01/19 04/01/19 08:27 08:50 10:00 WBC RBC Hgb Hct MCV MCH MCHC RDW Plt Count MPV Absolute Neuts (auto) Total Counted Neutrophils % Neutrophils % (Manual) Band Neutrophils % Lymphocytes % Lymphocytes % (Manual) Monocytes % Monocytes % (Manual) Eosinophils % Eosinophils % (Manual) Basophils % Basophils % (Manual) Myelocytes % (Man) Promyelocytes % (Man) Blast Cells % (Manual) Nucleated RBC % Metamyelocytes Hypochromia Toxic Granulation Platelet Estimate Platelet Comment Polychromasia Poikilocytosis Anisocytosis Microcytosis Macrocytosis Spherocytes Target Cells Tear Drop Cells Ovalocytes [place] Cells Schistocytes PT with INR INR PTT (Actin FS) Fibrinogen Puncture Site Right brachial ABG pH 7.32 L ABG pCO2 at Pt Temp 17.5 L ABG pO2 at Pt Temp 115 H ABG HCO3 8.8 L ABG O2 Sat (Measured) 97.7 ABG O2 Content 12.7 ABG Base Excess -15.9 L Atul Test Positive O2 Delivery Device Room air Oxygen Flow Rate 21% Vent Mode Vent Rate PEEP Pressure Support Vent Sodium 148 H Potassium 3.8 Chloride 112 H Carbon Dioxide 7 L Anion Gap 29 H BUN 17.2 Creatinine 0.6 Est GFR (CKD-EPI)AfAm 124.05 Est GFR (CKD-EPI)NonAf 107.03 POC Glucometer Random Glucose 488 H* Lactic Acid Calcium 8.1 L Phosphorus Magnesium Iron TIBC Iron Saturation Unsaturated IBC Ferritin Total Bilirubin AST ALT Alkaline Phosphatase Creatine Kinase Troponin I Total Protein Albumin Prealbumin Triglycerides Cholesterol Total LDL Cholesterol HDL Cholesterol Beta-Hydroxybutyrate Urine Color Urine Appearance Urine pH Ur Specific [place] Urine Protein Urine Glucose (UA) Urine Ketones Urine Blood Urine Nitrite Urine Bilirubin Urine Urobilinogen Ur Leukocyte Esterase Urine WBC (Auto) Urine RBC (Auto) U Epithel Cells (Auto) Urine Bacteria (Auto) Stool Occult Blood Acetone, Qual Positive moderate 2+ H B-Hydroxybutyrate 04/01/19 04/01/19 04/01/19 10:32 11:10 12:59 WBC RBC Hgb Hct MCV MCH MCHC RDW Plt Count MPV Absolute Neuts (auto) Total Counted Neutrophils % Neutrophils % (Manual) Band Neutrophils % Lymphocytes % Lymphocytes % (Manual) Monocytes % Monocytes % (Manual) Eosinophils % Eosinophils % (Manual) Basophils % Basophils % (Manual) Myelocytes % (Man) Promyelocytes % (Man) Blast Cells % (Manual) Nucleated RBC % Metamyelocytes Hypochromia Toxic Granulation Platelet Estimate Platelet Comment Polychromasia Poikilocytosis Anisocytosis Microcytosis Macrocytosis Spherocytes Target Cells Tear Drop Cells Ovalocytes [place] Cells Schistocytes PT with INR INR PTT (Actin FS) Fibrinogen Puncture Site Right radial ABG pH 7.08 L* ABG pCO2 at Pt Temp 13.9 L* ABG pO2 at Pt Temp 163 H ABG HCO3 4.0 L ABG O2 Sat (Measured) 97.5 ABG O2 Content 12.1 ABG Base Excess -24.8 L Atul Test Positive O2 Delivery Device Oxygen Flow Rate Yes Vent Mode Vent Rate PEEP Pressure Support Vent Sodium Potassium Chloride Carbon Dioxide Anion Gap BUN Creatinine Est GFR (CKD-EPI)AfAm Est GFR (CKD-EPI)NonAf POC Glucometer 440 Random Glucose Lactic Acid 2.4 H* Calcium Phosphorus Magnesium Iron TIBC Iron Saturation Unsaturated IBC Ferritin Total Bilirubin AST ALT Alkaline Phosphatase Creatine Kinase Troponin I Total Protein Albumin Prealbumin Triglycerides Cholesterol Total LDL Cholesterol HDL Cholesterol Beta-Hydroxybutyrate Urine Color Urine Appearance Urine pH Ur Specific [place] Urine Protein Urine Glucose (UA) Urine Ketones Urine Blood Urine Nitrite Urine Bilirubin Urine Urobilinogen Ur Leukocyte Esterase Urine WBC (Auto) Urine RBC (Auto) U Epithel Cells (Auto) Urine Bacteria (Auto) Stool Occult Blood Acetone, Qual B-Hydroxybutyrate 04/01/19 04/01/19 04/01/19 12:59 15:29 17:05 WBC RBC Hgb Hct MCV MCH MCHC RDW Plt Count MPV Absolute Neuts (auto) Total Counted Neutrophils % Neutrophils % (Manual) Band Neutrophils % Lymphocytes % Lymphocytes % (Manual) Monocytes % Monocytes % (Manual) Eosinophils % Eosinophils % (Manual) Basophils % Basophils % (Manual) Myelocytes % (Man) Promyelocytes % (Man) Blast Cells % (Manual) Nucleated RBC % Metamyelocytes Hypochromia Toxic Granulation Platelet Estimate Platelet Comment Polychromasia Poikilocytosis Anisocytosis Microcytosis Macrocytosis Spherocytes Target Cells Tear Drop Cells Ovalocytes [place] Cells Schistocytes PT with INR INR PTT (Actin FS) Fibrinogen Puncture Site ABG pH ABG pCO2 at Pt Temp ABG pO2 at Pt Temp ABG HCO3 ABG O2 Sat (Measured) ABG O2 Content ABG Base Excess Atul Test O2 Delivery Device Oxygen Flow Rate Vent Mode Vent Rate PEEP Pressure Support Vent Sodium Potassium Chloride Carbon Dioxide Anion Gap BUN Creatinine Est GFR (CKD-EPI)AfAm Est GFR (CKD-EPI)NonAf POC Glucometer 228 238 Random Glucose Lactic Acid Calcium Phosphorus Magnesium Iron TIBC Iron Saturation Unsaturated IBC Ferritin Total Bilirubin AST ALT Alkaline Phosphatase Creatine Kinase Troponin I Total Protein Albumin Prealbumin Triglycerides Cholesterol Total LDL Cholesterol HDL Cholesterol Beta-Hydroxybutyrate Urine Color Urine Appearance Urine pH Ur Specific [place] Urine Protein Urine Glucose (UA) Urine Ketones Urine Blood Urine Nitrite Urine Bilirubin Urine Urobilinogen Ur Leukocyte Esterase Urine WBC (Auto) Urine RBC (Auto) U Epithel Cells (Auto) Urine Bacteria (Auto) Stool Occult Blood Acetone, Qual B-Hydroxybutyrate 124.00 H 04/01/19 04/01/19 04/01/19 18:21 18:40 19:21 WBC RBC Hgb Hct MCV MCH MCHC RDW Plt Count MPV Absolute Neuts (auto) Total Counted Neutrophils % Neutrophils % (Manual) Band Neutrophils % Lymphocytes % Lymphocytes % (Manual) Monocytes % Monocytes % (Manual) Eosinophils % Eosinophils % (Manual) Basophils % Basophils % (Manual) Myelocytes % (Man) Promyelocytes % (Man) Blast Cells % (Manual) Nucleated RBC % Metamyelocytes Hypochromia Toxic Granulation Platelet Estimate Platelet Comment Polychromasia Poikilocytosis Anisocytosis Microcytosis Macrocytosis Spherocytes Target Cells Tear Drop Cells Ovalocytes [place] Cells Schistocytes PT with INR INR PTT (Actin FS) Fibrinogen Puncture Site Right brachial ABG pH 7.32 L ABG pCO2 at Pt Temp 36.2 ABG pO2 at Pt Temp 181 H ABG HCO3 18.2 L ABG O2 Sat (Measured) 99.4 H ABG O2 Content 14.2 ABG Base Excess -6.8 L Atul Test Positive O2 Delivery Device Mech. vent. Oxygen Flow Rate 50% Vent Mode A/c Vent Rate 14 PEEP Pressure Support Vent 350 Sodium Potassium Chloride Carbon Dioxide Anion Gap BUN Creatinine Est GFR (CKD-EPI)AfAm Est GFR (CKD-EPI)NonAf POC Glucometer 160 118 Random Glucose Lactic Acid Calcium Phosphorus Magnesium Iron TIBC Iron Saturation Unsaturated IBC Ferritin Total Bilirubin AST ALT Alkaline Phosphatase Creatine Kinase Troponin I Total Protein Albumin Prealbumin Triglycerides Cholesterol Total LDL Cholesterol HDL Cholesterol Beta-Hydroxybutyrate Urine Color Urine Appearance Urine pH Ur Specific [place] Urine Protein Urine Glucose (UA) Urine Ketones Urine Blood Urine Nitrite Urine Bilirubin Urine Urobilinogen Ur Leukocyte Esterase Urine WBC (Auto) Urine RBC (Auto) U Epithel Cells (Auto) Urine Bacteria (Auto) Stool Occult Blood Acetone, Qual B-Hydroxybutyrate 04/01/19 04/01/19 04/01/19 20:00 20:14 21:55 WBC RBC Hgb Hct MCV MCH MCHC RDW Plt Count MPV Absolute Neuts (auto) Total Counted Neutrophils % Neutrophils % (Manual) Band Neutrophils % Lymphocytes % Lymphocytes % (Manual) Monocytes % Monocytes % (Manual) Eosinophils % Eosinophils % (Manual) Basophils % Basophils % (Manual) Myelocytes % (Man) Promyelocytes % (Man) Blast Cells % (Manual) Nucleated RBC % Metamyelocytes Hypochromia Toxic Granulation Platelet Estimate Platelet Comment Polychromasia Poikilocytosis Anisocytosis Microcytosis Macrocytosis Spherocytes Target Cells Tear Drop Cells Ovalocytes [place] Cells Schistocytes PT with INR INR PTT (Actin FS) Fibrinogen Puncture Site ABG pH ABG pCO2 at Pt Temp ABG pO2 at Pt Temp ABG HCO3 ABG O2 Sat (Measured) ABG O2 Content ABG Base Excess Atul Test O2 Delivery Device Oxygen Flow Rate Vent Mode Vent Rate PEEP Pressure Support Vent Sodium 154 H Potassium 3.0 L Chloride 116 H Carbon Dioxide 23 Anion Gap 15 BUN 17.9 Creatinine 0.9 Est GFR (CKD-EPI)AfAm 87.02 Est GFR (CKD-EPI)NonAf 75.08 POC Glucometer 110 176 Random Glucose 96 Lactic Acid Calcium 8.1 L Phosphorus Magnesium Iron TIBC Iron Saturation Unsaturated IBC Ferritin Total Bilirubin AST ALT Alkaline Phosphatase Creatine Kinase Troponin I Total Protein Albumin Prealbumin Triglycerides Cholesterol Total LDL Cholesterol HDL Cholesterol Beta-Hydroxybutyrate Urine Color Urine Appearance Urine pH Ur Specific [place] Urine Protein Urine Glucose (UA) Urine Ketones Urine Blood Urine Nitrite Urine Bilirubin Urine Urobilinogen Ur Leukocyte Esterase Urine WBC (Auto) Urine RBC (Auto) U Epithel Cells (Auto) Urine Bacteria (Auto) Stool Occult Blood Acetone, Qual B-Hydroxybutyrate 04/02/19 04/02/19 04/02/19 00:47 01:00 01:00 WBC RBC Hgb Hct MCV MCH MCHC RDW Plt Count MPV Absolute Neuts (auto) Total Counted Neutrophils % Neutrophils % (Manual) Band Neutrophils % Lymphocytes % Lymphocytes % (Manual) Monocytes % Monocytes % (Manual) Eosinophils % Eosinophils % (Manual) Basophils % Basophils % (Manual) Myelocytes % (Man) Promyelocytes % (Man) Blast Cells % (Manual) Nucleated RBC % Metamyelocytes Hypochromia Toxic Granulation Platelet Estimate Platelet Comment Polychromasia Poikilocytosis Anisocytosis Microcytosis Macrocytosis Spherocytes Target Cells Tear Drop Cells Ovalocytes [place] Cells Schistocytes PT with INR INR PTT (Actin FS) Fibrinogen Puncture Site ABG pH ABG pCO2 at Pt Temp ABG pO2 at Pt Temp ABG HCO3 ABG O2 Sat (Measured) ABG O2 Content ABG Base Excess Atul Test O2 Delivery Device Oxygen Flow Rate Vent Mode Vent Rate PEEP Pressure Support Vent Sodium 155 H Potassium 3.2 L Chloride 120 H Carbon Dioxide 25 Anion Gap 9 BUN 20.8 H Creatinine 0.9 Est GFR (CKD-EPI)AfAm 87.02 Est GFR (CKD-EPI)NonAf 75.08 POC Glucometer 82 Random Glucose 78 Lactic Acid 1.8 Calcium 7.8 L Phosphorus Magnesium Iron TIBC Iron Saturation Unsaturated IBC Ferritin Total Bilirubin AST ALT Alkaline Phosphatase Creatine Kinase Troponin I Total Protein Albumin Prealbumin Triglycerides Cholesterol Total LDL Cholesterol HDL Cholesterol Beta-Hydroxybutyrate Urine Color Urine Appearance Urine pH Ur Specific [place] Urine Protein Urine Glucose (UA) Urine Ketones Urine Blood Urine Nitrite Urine Bilirubin Urine Urobilinogen Ur Leukocyte Esterase Urine WBC (Auto) Urine RBC (Auto) U Epithel Cells (Auto) Urine Bacteria (Auto) Stool Occult Blood Acetone, Qual B-Hydroxybutyrate 04/02/19 04/02/19 04/02/19 02:08 03:06 04:19 WBC RBC Hgb Hct MCV MCH MCHC RDW Plt Count MPV Absolute Neuts (auto) Total Counted Neutrophils % Neutrophils % (Manual) Band Neutrophils % Lymphocytes % Lymphocytes % (Manual) Monocytes % Monocytes % (Manual) Eosinophils % Eosinophils % (Manual) Basophils % Basophils % (Manual) Myelocytes % (Man) Promyelocytes % (Man) Blast Cells % (Manual) Nucleated RBC % Metamyelocytes Hypochromia Toxic Granulation Platelet Estimate Platelet Comment Polychromasia Poikilocytosis Anisocytosis Microcytosis Macrocytosis Spherocytes Target Cells Tear Drop Cells Ovalocytes [place] Cells Schistocytes PT with INR INR PTT (Actin FS) Fibrinogen Puncture Site ABG pH ABG pCO2 at Pt Temp ABG pO2 at Pt Temp ABG HCO3 ABG O2 Sat (Measured) ABG O2 Content ABG Base Excess Atul Test O2 Delivery Device Oxygen Flow Rate Vent Mode Vent Rate PEEP Pressure Support Vent Sodium Potassium Chloride Carbon Dioxide Anion Gap BUN Creatinine Est GFR (CKD-EPI)AfAm Est GFR (CKD-EPI)NonAf POC Glucometer 117 150 142 Random Glucose Lactic Acid Calcium Phosphorus Magnesium Iron TIBC Iron Saturation Unsaturated IBC Ferritin Total Bilirubin AST ALT Alkaline Phosphatase Creatine Kinase Troponin I Total Protein Albumin Prealbumin Triglycerides Cholesterol Total LDL Cholesterol HDL Cholesterol Beta-Hydroxybutyrate Urine Color Urine Appearance Urine pH Ur Specific [place] Urine Protein Urine Glucose (UA) Urine Ketones Urine Blood Urine Nitrite Urine Bilirubin Urine Urobilinogen Ur Leukocyte Esterase Urine WBC (Auto) Urine RBC (Auto) U Epithel Cells (Auto) Urine Bacteria (Auto) Stool Occult Blood Acetone, Qual B-Hydroxybutyrate 04/02/19 04/02/19 04/02/19 05:30 05:32 06:00 WBC 11.0 H RBC 2.87 L Hgb 8.2 L Hct 24.6 L D MCV 85.7 MCH 28.6 MCHC 33.4 RDW 22.7 H Plt Count 594 H MPV 7.5 Absolute Neuts (auto) 8.3 H Total Counted Neutrophils % 75.5 Neutrophils % (Manual) Band Neutrophils % Lymphocytes % 17.6 D Lymphocytes % (Manual) Monocytes % 5.5 Monocytes % (Manual) Eosinophils % 0.7 D Eosinophils % (Manual) Basophils % 0.7 Basophils % (Manual) Myelocytes % (Man) Promyelocytes % (Man) Blast Cells % (Manual) Nucleated RBC % 0 Metamyelocytes Hypochromia Toxic Granulation Platelet Estimate Platelet Comment Polychromasia Poikilocytosis Anisocytosis Microcytosis Macrocytosis Spherocytes Target Cells Tear Drop Cells Ovalocytes [place] Cells Schistocytes PT with INR INR PTT (Actin FS) Fibrinogen Puncture Site ABG pH ABG pCO2 at Pt Temp ABG pO2 at Pt Temp ABG HCO3 ABG O2 Sat (Measured) ABG O2 Content ABG Base Excess Atul Test O2 Delivery Device Oxygen Flow Rate Vent Mode Vent Rate PEEP Pressure Support Vent Sodium 153 H Potassium 3.5 Chloride 120 H Carbon Dioxide 25 Anion Gap 9 BUN 22.1 H Creatinine 0.9 Est GFR (CKD-EPI)AfAm 87.02 Est GFR (CKD-EPI)NonAf 75.08 POC Glucometer 146 Random Glucose 152 H Lactic Acid Calcium 7.9 L Phosphorus Magnesium 2.2 Iron TIBC Iron Saturation Unsaturated IBC Ferritin Total Bilirubin 0.2 AST 22 ALT 14 Alkaline Phosphatase 151 H Creatine Kinase Troponin I Total Protein 5.5 L Albumin 1.7 L Prealbumin Triglycerides Cholesterol Total LDL Cholesterol HDL Cholesterol Beta-Hydroxybutyrate Urine Color Urine Appearance Urine pH Ur Specific [place] Urine Protein Urine Glucose (UA) Urine Ketones Urine Blood Urine Nitrite Urine Bilirubin Urine Urobilinogen Ur Leukocyte Esterase Urine WBC (Auto) Urine RBC (Auto) U Epithel Cells (Auto) Urine Bacteria (Auto) Stool Occult Blood Acetone, Qual B-Hydroxybutyrate 04/02/19 04/02/19 04/02/19 06:05 07:06 08:50 WBC RBC Hgb Hct MCV MCH MCHC RDW Plt Count MPV Absolute Neuts (auto) Total Counted Neutrophils % Neutrophils % (Manual) Band Neutrophils % Lymphocytes % Lymphocytes % (Manual) Monocytes % Monocytes % (Manual) Eosinophils % Eosinophils % (Manual) Basophils % Basophils % (Manual) Myelocytes % (Man) Promyelocytes % (Man) Blast Cells % (Manual) Nucleated RBC % Metamyelocytes Hypochromia Toxic Granulation Platelet Estimate Platelet Comment Polychromasia Poikilocytosis Anisocytosis Microcytosis Macrocytosis Spherocytes Target Cells Tear Drop Cells Ovalocytes [place] Cells Schistocytes PT with INR INR PTT (Actin FS) Fibrinogen Puncture Site Left radial ABG pH 7.40 ABG pCO2 at Pt Temp 39.5 ABG pO2 at Pt Temp 132 H ABG HCO3 24.2 ABG O2 Sat (Measured) 99.1 H ABG O2 Content 11.9 ABG Base Excess 0 Atul Test Positive O2 Delivery Device Mech vent Oxygen Flow Rate 50 Vent Mode A/c Vent Rate 14 PEEP 5.0 Pressure Support Vent 350 Sodium Potassium Chloride Carbon Dioxide Anion Gap BUN Creatinine Est GFR (CKD-EPI)AfAm Est GFR (CKD-EPI)NonAf POC Glucometer 219 150 Random Glucose Lactic Acid Calcium Phosphorus Magnesium Iron TIBC Iron Saturation Unsaturated IBC Ferritin Total Bilirubin AST ALT Alkaline Phosphatase Creatine Kinase Troponin I Total Protein Albumin Prealbumin Triglycerides Cholesterol Total LDL Cholesterol HDL Cholesterol Beta-Hydroxybutyrate Urine Color Urine Appearance Urine pH Ur Specific [place] Urine Protein Urine Glucose (UA) Urine Ketones Urine Blood Urine Nitrite Urine Bilirubin Urine Urobilinogen Ur Leukocyte Esterase Urine WBC (Auto) Urine RBC (Auto) U Epithel Cells (Auto) Urine Bacteria (Auto) Stool Occult Blood Acetone, Qual B-Hydroxybutyrate 04/02/19 04/02/19 04/02/19 10:30 14:47 15:48 WBC RBC Hgb Hct MCV MCH MCHC RDW Plt Count MPV Absolute Neuts (auto) Total Counted Neutrophils % Neutrophils % (Manual) Band Neutrophils % Lymphocytes % Lymphocytes % (Manual) Monocytes % Monocytes % (Manual) Eosinophils % Eosinophils % (Manual) Basophils % Basophils % (Manual) Myelocytes % (Man) Promyelocytes % (Man) Blast Cells % (Manual) Nucleated RBC % Metamyelocytes Hypochromia Toxic Granulation Platelet Estimate Platelet Comment Polychromasia Poikilocytosis Anisocytosis Microcytosis Macrocytosis Spherocytes Target Cells Tear Drop Cells Ovalocytes [place] Cells Schistocytes PT with INR INR PTT (Actin FS) Fibrinogen Puncture Site ABG pH ABG pCO2 at Pt Temp ABG pO2 at Pt Temp ABG HCO3 ABG O2 Sat (Measured) ABG O2 Content ABG Base Excess Atul Test O2 Delivery Device Oxygen Flow Rate Vent Mode Vent Rate PEEP Pressure Support Vent Sodium Potassium Chloride Carbon Dioxide Anion Gap BUN Creatinine Est GFR (CKD-EPI)AfAm Est GFR (CKD-EPI)NonAf POC Glucometer [phone] Random Glucose Lactic Acid Calcium Phosphorus Magnesium Iron TIBC Iron Saturation Unsaturated IBC Ferritin Total Bilirubin AST ALT Alkaline Phosphatase Creatine Kinase Troponin I Total Protein Albumin Prealbumin Triglycerides Cholesterol Total LDL Cholesterol HDL Cholesterol Beta-Hydroxybutyrate Urine Color Urine Appearance Urine pH Ur Specific [place] Urine Protein Urine Glucose (UA) Urine Ketones Urine Blood Urine Nitrite Urine Bilirubin Urine Urobilinogen Ur Leukocyte Esterase Urine WBC (Auto) Urine RBC (Auto) U Epithel Cells (Auto) Urine Bacteria (Auto) Stool Occult Blood Acetone, Qual B-Hydroxybutyrate 04/02/19 04/02/19 04/03/19 18:26 23:59 01:03 WBC RBC Hgb Hct MCV MCH MCHC RDW Plt Count MPV Absolute Neuts (auto) Total Counted Neutrophils % Neutrophils % (Manual) Band Neutrophils % Lymphocytes % Lymphocytes % (Manual) Monocytes % Monocytes % (Manual) Eosinophils % Eosinophils % (Manual) Basophils % Basophils % (Manual) Myelocytes % (Man) Promyelocytes % (Man) Blast Cells % (Manual) Nucleated RBC % Metamyelocytes Hypochromia Toxic Granulation Platelet Estimate Platelet Comment Polychromasia Poikilocytosis Anisocytosis Microcytosis Macrocytosis Spherocytes Target Cells Tear Drop Cells Ovalocytes [place] Cells Schistocytes PT with INR INR PTT (Actin FS) Fibrinogen Puncture Site ABG pH ABG pCO2 at Pt Temp ABG pO2 at Pt Temp ABG HCO3 ABG O2 Sat (Measured) ABG O2 Content ABG Base Excess Atul Test O2 Delivery Device Oxygen Flow Rate Vent Mode Vent Rate PEEP Pressure Support Vent Sodium Potassium Chloride Carbon Dioxide Anion Gap BUN Creatinine Est GFR (CKD-EPI)AfAm Est GFR (CKD-EPI)NonAf POC Glucometer [phone] Random Glucose Lactic Acid Calcium Phosphorus Magnesium Iron TIBC Iron Saturation Unsaturated IBC Ferritin Total Bilirubin AST ALT Alkaline Phosphatase Creatine Kinase Troponin I Total Protein Albumin Prealbumin Triglycerides Cholesterol Total LDL Cholesterol HDL Cholesterol Beta-Hydroxybutyrate Urine Color Urine Appearance Urine pH Ur Specific [place] Urine Protein Urine Glucose (UA) Urine Ketones Urine Blood Urine Nitrite Urine Bilirubin Urine Urobilinogen Ur Leukocyte Esterase Urine WBC (Auto) Urine RBC (Auto) U Epithel Cells (Auto) Urine Bacteria (Auto) Stool Occult Blood Acetone, Qual B-Hydroxybutyrate 04/03/19 04/03/19 04/03/19 02:52 05:00 05:00 WBC 9.5 RBC 2.87 L Hgb 8.2 L Hct 24.8 L MCV 86.3 MCH 28.7 MCHC 33.2 RDW 23.1 H Plt Count 550 H MPV 7.4 L Absolute Neuts (auto) 6.5 Total Counted Neutrophils % 67.9 Neutrophils % (Manual) Band Neutrophils % Lymphocytes % 22.9 D Lymphocytes % (Manual) Monocytes % 6.1 Monocytes % (Manual) Eosinophils % 2.3 D Eosinophils % (Manual) Basophils % 0.8 Basophils % (Manual) Myelocytes % (Man) Promyelocytes % (Man) Blast Cells % (Manual) Nucleated RBC % 0 Metamyelocytes Hypochromia 0 Toxic Granulation Platelet Estimate Increased Platelet Comment Polychromasia 0 Poikilocytosis 0 Anisocytosis 1+ Microcytosis 1+ Macrocytosis 1+ Spherocytes Target Cells 1+ Tear Drop Cells Ovalocytes 1+ [place] Cells Schistocytes PT with INR INR PTT (Actin FS) Fibrinogen Puncture Site ABG pH ABG pCO2 at Pt Temp ABG pO2 at Pt Temp ABG HCO3 ABG O2 Sat (Measured) ABG O2 Content ABG Base Excess Atul Test O2 Delivery Device Oxygen Flow Rate Vent Mode Vent Rate PEEP Pressure Support Vent Sodium 151 H Potassium 3.5 Chloride 116 H Carbon Dioxide 27 Anion Gap 7 L BUN 21.4 H Creatinine 0.6 Est GFR (CKD-EPI)AfAm 124.05 Est GFR (CKD-EPI)NonAf 107.03 POC Glucometer 112 Random Glucose 230 H Lactic Acid Calcium 7.8 L Phosphorus 1.9 L Magnesium 1.9 Iron TIBC Iron Saturation Unsaturated IBC Ferritin Total Bilirubin 0.3 AST 18 ALT 12 L Alkaline Phosphatase 138 H Creatine Kinase Troponin I Total Protein 5.3 L Albumin 1.8 L Prealbumin Triglycerides Cholesterol Total LDL Cholesterol HDL Cholesterol Beta-Hydroxybutyrate Urine Color Urine Appearance Urine pH Ur Specific [place] Urine Protein Urine Glucose (UA) Urine Ketones Urine Blood Urine Nitrite Urine Bilirubin Urine Urobilinogen Ur Leukocyte Esterase Urine WBC (Auto) Urine RBC (Auto) U Epithel Cells (Auto) Urine Bacteria (Auto) Stool Occult Blood Acetone, Qual B-Hydroxybutyrate 04/03/19 04/03/19 04/03/19 05:00 05:27 10:53 WBC RBC Hgb Hct MCV MCH MCHC RDW Plt Count MPV Absolute Neuts (auto) Total Counted Neutrophils % Neutrophils % (Manual) Band Neutrophils % Lymphocytes % Lymphocytes % (Manual) Monocytes % Monocytes % (Manual) Eosinophils % Eosinophils % (Manual) Basophils % Basophils % (Manual) Myelocytes % (Man) Promyelocytes % (Man) Blast Cells % (Manual) Nucleated RBC % Metamyelocytes Hypochromia Toxic Granulation Platelet Estimate Platelet Comment Polychromasia Poikilocytosis Anisocytosis Microcytosis Macrocytosis Spherocytes Target Cells Tear Drop Cells Ovalocytes [place] Cells Schistocytes PT with INR INR PTT (Actin FS) Fibrinogen Puncture Site ABG pH ABG pCO2 at Pt Temp ABG pO2 at Pt Temp ABG HCO3 ABG O2 Sat (Measured) ABG O2 Content ABG Base Excess Atul Test O2 Delivery Device Oxygen Flow Rate Vent Mode Vent Rate PEEP Pressure Support Vent Sodium Potassium Chloride Carbon Dioxide Anion Gap BUN Creatinine Est GFR (CKD-EPI)AfAm Est GFR (CKD-EPI)NonAf POC Glucometer [phone] Random Glucose Lactic Acid Calcium Phosphorus Magnesium Iron TIBC Iron Saturation Unsaturated IBC Ferritin Total Bilirubin AST ALT Alkaline Phosphatase Creatine Kinase Troponin I Total Protein Albumin Prealbumin Triglycerides Cholesterol Total LDL Cholesterol HDL Cholesterol Beta-Hydroxybutyrate Urine Color Yellow Urine Appearance Clear Urine pH 6.0 Ur Specific [place] 1.025 Urine Protein 2+ H Urine Glucose (UA) Negative Urine Ketones 1+ H Urine Blood Negative Urine Nitrite Negative Urine Bilirubin 1+ H Urine Urobilinogen 0.2 Ur Leukocyte Esterase Negative Urine WBC (Auto) 0-3 Urine RBC (Auto) 0-3 U Epithel Cells (Auto) 2-5 Urine Bacteria (Auto) Few Stool Occult Blood Acetone, Qual B-Hydroxybutyrate 04/03/19 04/03/19 04/03/19 14:01 17:22 22:23 WBC RBC Hgb Hct MCV MCH MCHC RDW Plt Count MPV Absolute Neuts (auto) Total Counted Neutrophils % Neutrophils % (Manual) Band Neutrophils % Lymphocytes % Lymphocytes % (Manual) Monocytes % Monocytes % (Manual) Eosinophils % Eosinophils % (Manual) Basophils % Basophils % (Manual) Myelocytes % (Man) Promyelocytes % (Man) Blast Cells % (Manual) Nucleated RBC % Metamyelocytes Hypochromia Toxic Granulation Platelet Estimate Platelet Comment Polychromasia Poikilocytosis Anisocytosis Microcytosis Macrocytosis Spherocytes Target Cells Tear Drop Cells Ovalocytes [place] Cells Schistocytes PT with INR INR PTT (Actin FS) Fibrinogen Puncture Site ABG pH ABG pCO2 at Pt Temp ABG pO2 at Pt Temp ABG HCO3 ABG O2 Sat (Measured) ABG O2 Content ABG Base Excess Atul Test O2 Delivery Device Oxygen Flow Rate Vent Mode Vent Rate PEEP Pressure Support Vent Sodium Potassium Chloride Carbon Dioxide Anion Gap BUN Creatinine Est GFR (CKD-EPI)AfAm Est GFR (CKD-EPI)NonAf POC Glucometer [phone] Random Glucose Lactic Acid Calcium Phosphorus Magnesium Iron TIBC Iron Saturation Unsaturated IBC Ferritin Total Bilirubin AST ALT Alkaline Phosphatase Creatine Kinase Troponin I Total Protein Albumin Prealbumin Triglycerides Cholesterol Total LDL Cholesterol HDL Cholesterol Beta-Hydroxybutyrate Urine Color Urine Appearance Urine pH Ur Specific [place] Urine Protein Urine Glucose (UA) Urine Ketones Urine Blood Urine Nitrite Urine Bilirubin Urine Urobilinogen Ur Leukocyte Esterase Urine WBC (Auto) Urine RBC (Auto) U Epithel Cells (Auto) Urine Bacteria (Auto) Stool Occult Blood Acetone, Qual B-Hydroxybutyrate 04/04/19 04/04/19 04/04/19 03:12 05:15 05:15 WBC 10.0 RBC 2.66 L Hgb 7.8 L Hct 22.9 L MCV 86.1 MCH 29.2 MCHC 34.0 RDW 23.1 H Plt Count 475 H MPV 7.5 Absolute Neuts (auto) 7.3 Total Counted Neutrophils % 73.2 Neutrophils % (Manual) Band Neutrophils % Lymphocytes % 18.0 D Lymphocytes % (Manual) Monocytes % 4.7 Monocytes % (Manual) Eosinophils % 3.3 Eosinophils % (Manual) Basophils % 0.8 Basophils % (Manual) Myelocytes % (Man) Promyelocytes % (Man) Blast Cells % (Manual) Nucleated RBC % 0 Metamyelocytes Hypochromia Toxic Granulation Platelet Estimate Platelet Comment Polychromasia Poikilocytosis Anisocytosis Microcytosis Macrocytosis Spherocytes Target Cells Tear Drop Cells Ovalocytes [place] Cells Schistocytes PT with INR INR PTT (Actin FS) Fibrinogen Puncture Site ABG pH ABG pCO2 at Pt Temp ABG pO2 at Pt Temp ABG HCO3 ABG O2 Sat (Measured) ABG O2 Content ABG Base Excess Atul Test O2 Delivery Device Oxygen Flow Rate Vent Mode Vent Rate PEEP Pressure Support Vent Sodium 149 H Potassium 3.1 L Chloride 112 H Carbon Dioxide 29 Anion Gap 8 BUN 18.4 H Creatinine 0.5 L Est GFR (CKD-EPI)AfAm 131.72 Est GFR (CKD-EPI)NonAf 113.65 POC Glucometer 202 Random Glucose 185 H Lactic Acid Calcium 7.5 L Phosphorus Magnesium 1.8 Iron TIBC Iron Saturation Unsaturated IBC Ferritin Total Bilirubin 0.2 AST 14 L ALT 11 L Alkaline Phosphatase 126 H Creatine Kinase Troponin I Total Protein 4.8 L Albumin 1.5 L Prealbumin Triglycerides Cholesterol Total LDL Cholesterol HDL Cholesterol Beta-Hydroxybutyrate Urine Color Urine Appearance Urine pH Ur Specific [place] Urine Protein Urine Glucose (UA) Urine Ketones Urine Blood Urine Nitrite Urine Bilirubin Urine Urobilinogen Ur Leukocyte Esterase Urine WBC (Auto) Urine RBC (Auto) U Epithel Cells (Auto) Urine Bacteria (Auto) Stool Occult Blood Acetone, Qual B-Hydroxybutyrate 04/04/19 04/04/19 04/04/19 07:57 11:16 15:05 WBC RBC Hgb Hct MCV MCH MCHC RDW Plt Count MPV Absolute Neuts (auto) Total Counted Neutrophils % Neutrophils % (Manual) Band Neutrophils % Lymphocytes % Lymphocytes % (Manual) Monocytes % Monocytes % (Manual) Eosinophils % Eosinophils % (Manual) Basophils % Basophils % (Manual) Myelocytes % (Man) Promyelocytes % (Man) Blast Cells % (Manual) Nucleated RBC % Metamyelocytes Hypochromia Toxic Granulation Platelet Estimate Platelet Comment Polychromasia Poikilocytosis Anisocytosis Microcytosis Macrocytosis Spherocytes Target Cells Tear Drop Cells Ovalocytes [place] Cells Schistocytes PT with INR INR PTT (Actin FS) Fibrinogen Puncture Site ABG pH ABG pCO2 at Pt Temp ABG pO2 at Pt Temp ABG HCO3 ABG O2 Sat (Measured) ABG O2 Content ABG Base Excess Atul Test O2 Delivery Device Oxygen Flow Rate Vent Mode Vent Rate PEEP Pressure Support Vent Sodium Potassium Chloride Carbon Dioxide Anion Gap BUN Creatinine Est GFR (CKD-EPI)AfAm Est GFR (CKD-EPI)NonAf POC Glucometer [phone] Random Glucose Lactic Acid Calcium Phosphorus Magnesium Iron TIBC Iron Saturation Unsaturated IBC Ferritin Total Bilirubin AST ALT Alkaline Phosphatase Creatine Kinase Troponin I Total Protein Albumin Prealbumin Triglycerides Cholesterol Total LDL Cholesterol HDL Cholesterol Beta-Hydroxybutyrate Urine Color Urine Appearance Urine pH Ur Specific [place] Urine Protein Urine Glucose (UA) Urine Ketones Urine Blood Urine Nitrite Urine Bilirubin Urine Urobilinogen Ur Leukocyte Esterase Urine WBC (Auto) Urine RBC (Auto) U Epithel Cells (Auto) Urine Bacteria (Auto) Stool Occult Blood Acetone, Qual B-Hydroxybutyrate 04/04/19 04/04/19 04/05/19 17:59 23:14 02:30 WBC RBC Hgb Hct MCV MCH MCHC RDW Plt Count MPV Absolute Neuts (auto) Total Counted Neutrophils % Neutrophils % (Manual) Band Neutrophils % Lymphocytes % Lymphocytes % (Manual) Monocytes % Monocytes % (Manual) Eosinophils % Eosinophils % (Manual) Basophils % Basophils % (Manual) Myelocytes % (Man) Promyelocytes % (Man) Blast Cells % (Manual) Nucleated RBC % Metamyelocytes Hypochromia Toxic Granulation Platelet Estimate Platelet Comment Polychromasia Poikilocytosis Anisocytosis Microcytosis Macrocytosis Spherocytes Target Cells Tear Drop Cells Ovalocytes [place] Cells Schistocytes PT with INR INR PTT (Actin FS) Fibrinogen Puncture Site ABG pH ABG pCO2 at Pt Temp ABG pO2 at Pt Temp ABG HCO3 ABG O2 Sat (Measured) ABG O2 Content ABG Base Excess Atul Test O2 Delivery Device Oxygen Flow Rate Vent Mode Vent Rate PEEP Pressure Support Vent Sodium Potassium Chloride Carbon Dioxide Anion Gap BUN Creatinine Est GFR (CKD-EPI)AfAm Est GFR (CKD-EPI)NonAf POC Glucometer [phone] Random Glucose Lactic Acid Calcium Phosphorus Magnesium Iron TIBC Iron Saturation Unsaturated IBC Ferritin Total Bilirubin AST ALT Alkaline Phosphatase Creatine Kinase Troponin I Total Protein Albumin Prealbumin Triglycerides Cholesterol Total LDL Cholesterol HDL Cholesterol Beta-Hydroxybutyrate Urine Color Urine Appearance Urine pH Ur Specific [place] Urine Protein Urine Glucose (UA) Urine Ketones Urine Blood Urine Nitrite Urine Bilirubin Urine Urobilinogen Ur Leukocyte Esterase Urine WBC (Auto) Urine RBC (Auto) U Epithel Cells (Auto) Urine Bacteria (Auto) Stool Occult Blood Acetone, Qual B-Hydroxybutyrate 04/05/19 04/05/19 04/05/19 05:50 10:05 11:06 WBC RBC Hgb Hct MCV MCH MCHC RDW Plt Count MPV Absolute Neuts (auto) Total Counted Neutrophils % Neutrophils % (Manual) Band Neutrophils % Lymphocytes % Lymphocytes % (Manual) Monocytes % Monocytes % (Manual) Eosinophils % Eosinophils % (Manual) Basophils % Basophils % (Manual) Myelocytes % (Man) Promyelocytes % (Man) Blast Cells % (Manual) Nucleated RBC % Metamyelocytes Hypochromia Toxic Granulation Platelet Estimate Platelet Comment Polychromasia Poikilocytosis Anisocytosis Microcytosis Macrocytosis Spherocytes Target Cells Tear Drop Cells Ovalocytes [place] Cells Schistocytes PT with INR INR PTT (Actin FS) Fibrinogen Puncture Site ABG pH ABG pCO2 at Pt Temp ABG pO2 at Pt Temp ABG HCO3 ABG O2 Sat (Measured) ABG O2 Content ABG Base Excess Atul Test O2 Delivery Device Oxygen Flow Rate Vent Mode Vent Rate PEEP Pressure Support Vent Sodium Potassium Chloride Carbon Dioxide Anion Gap BUN Creatinine Est GFR (CKD-EPI)AfAm Est GFR (CKD-EPI)NonAf POC Glucometer [phone] Random Glucose Lactic Acid Calcium Phosphorus Magnesium Iron TIBC Iron Saturation Unsaturated IBC Ferritin Total Bilirubin AST ALT Alkaline Phosphatase Creatine Kinase Troponin I Total Protein Albumin Prealbumin Triglycerides Cholesterol Total LDL Cholesterol HDL Cholesterol Beta-Hydroxybutyrate Urine Color Urine Appearance Urine pH Ur Specific [place] Urine Protein Urine Glucose (UA) Urine Ketones Urine Blood Urine Nitrite Urine Bilirubin Urine Urobilinogen Ur Leukocyte Esterase Urine WBC (Auto) Urine RBC (Auto) U Epithel Cells (Auto) Urine Bacteria (Auto) Stool Occult Blood Acetone, Qual B-Hydroxybutyrate 04/05/19 04/05/19 04/05/19 12:29 13:35 14:44 WBC RBC Hgb Hct MCV MCH MCHC RDW Plt Count MPV Absolute Neuts (auto) Total Counted Neutrophils % Neutrophils % (Manual) Band Neutrophils % Lymphocytes % Lymphocytes % (Manual) Monocytes % Monocytes % (Manual) Eosinophils % Eosinophils % (Manual) Basophils % Basophils % (Manual) Myelocytes % (Man) Promyelocytes % (Man) Blast Cells % (Manual) Nucleated RBC % Metamyelocytes Hypochromia Toxic Granulation Platelet Estimate Platelet Comment Polychromasia Poikilocytosis Anisocytosis Microcytosis Macrocytosis Spherocytes Target Cells Tear Drop Cells Ovalocytes [place] Cells Schistocytes PT with INR INR PTT (Actin FS) Fibrinogen Puncture Site ABG pH ABG pCO2 at Pt Temp ABG pO2 at Pt Temp ABG HCO3 ABG O2 Sat (Measured) ABG O2 Content ABG Base Excess Atul Test O2 Delivery Device Oxygen Flow Rate Vent Mode Vent Rate PEEP Pressure Support Vent Sodium Potassium Chloride Carbon Dioxide Anion Gap BUN Creatinine Est GFR (CKD-EPI)AfAm Est GFR (CKD-EPI)NonAf POC Glucometer [phone] Random Glucose Lactic Acid Calcium Phosphorus Magnesium Iron TIBC Iron Saturation Unsaturated IBC Ferritin Total Bilirubin AST ALT Alkaline Phosphatase Creatine Kinase Troponin I Total Protein Albumin Prealbumin Triglycerides Cholesterol Total LDL Cholesterol HDL Cholesterol Beta-Hydroxybutyrate Urine Color Urine Appearance Urine pH Ur Specific [place] Urine Protein Urine Glucose (UA) Urine Ketones Urine Blood Urine Nitrite Urine Bilirubin Urine Urobilinogen Ur Leukocyte Esterase Urine WBC (Auto) Urine RBC (Auto) U Epithel Cells (Auto) Urine Bacteria (Auto) Stool Occult Blood Acetone, Qual B-Hydroxybutyrate 04/05/19 04/05/19 04/05/19 15:52 17:06 21:18 WBC RBC Hgb Hct MCV MCH MCHC RDW Plt Count MPV Absolute Neuts (auto) Total Counted Neutrophils % Neutrophils % (Manual) Band Neutrophils % Lymphocytes % Lymphocytes % (Manual) Monocytes % Monocytes % (Manual) Eosinophils % Eosinophils % (Manual) Basophils % Basophils % (Manual) Myelocytes % (Man) Promyelocytes % (Man) Blast Cells % (Manual) Nucleated RBC % Metamyelocytes Hypochromia Toxic Granulation Platelet Estimate Platelet Comment Polychromasia Poikilocytosis Anisocytosis Microcytosis Macrocytosis Spherocytes Target Cells Tear Drop Cells Ovalocytes [place] Cells Schistocytes PT with INR INR PTT (Actin FS) Fibrinogen Puncture Site ABG pH ABG pCO2 at Pt Temp ABG pO2 at Pt Temp ABG HCO3 ABG O2 Sat (Measured) ABG O2 Content ABG Base Excess Atul Test O2 Delivery Device Oxygen Flow Rate Vent Mode Vent Rate PEEP Pressure Support Vent Sodium Potassium Chloride Carbon Dioxide Anion Gap BUN Creatinine Est GFR (CKD-EPI)AfAm Est GFR (CKD-EPI)NonAf POC Glucometer [phone] Random Glucose Lactic Acid Calcium Phosphorus Magnesium Iron TIBC Iron Saturation Unsaturated IBC Ferritin Total Bilirubin AST ALT Alkaline Phosphatase Creatine Kinase Troponin I Total Protein Albumin Prealbumin Triglycerides Cholesterol Total LDL Cholesterol HDL Cholesterol Beta-Hydroxybutyrate Urine Color Urine Appearance Urine pH Ur Specific [place] Urine Protein Urine Glucose (UA) Urine Ketones Urine Blood Urine Nitrite Urine Bilirubin Urine Urobilinogen Ur Leukocyte Esterase Urine WBC (Auto) Urine RBC (Auto) U Epithel Cells (Auto) Urine Bacteria (Auto) Stool Occult Blood Acetone, Qual B-Hydroxybutyrate 04/09/19 04/09/19 04/09/19 05:48 05:48 10:54 WBC RBC Hgb Hct MCV MCH MCHC RDW Plt Count MPV Absolute Neuts (auto) Total Counted Neutrophils % Neutrophils % (Manual) Band Neutrophils % Lymphocytes % Lymphocytes % (Manual) Monocytes % Monocytes % (Manual) Eosinophils % Eosinophils % (Manual) Basophils % Basophils % (Manual) Myelocytes % (Man) Promyelocytes % (Man) Blast Cells % (Manual) Nucleated RBC % Metamyelocytes Hypochromia Toxic Granulation Platelet Estimate Normal Platelet Comment Present Polychromasia Poikilocytosis Anisocytosis Microcytosis Macrocytosis Spherocytes Target Cells Tear Drop Cells Ovalocytes [place] Cells Schistocytes PT with INR INR PTT (Actin FS) Fibrinogen Puncture Site ABG pH ABG pCO2 at Pt Temp ABG pO2 at Pt Temp ABG HCO3 ABG O2 Sat (Measured) ABG O2 Content ABG Base Excess Atul Test O2 Delivery Device Oxygen Flow Rate Vent Mode Vent Rate PEEP Pressure Support Vent Sodium 139 Potassium 3.6 Chloride 104 Carbon Dioxide 28 Anion Gap 6 L BUN 7.1 Creatinine 0.3 L Est GFR (CKD-EPI)AfAm 155.82 Est GFR (CKD-EPI)NonAf 134.44 POC Glucometer 288 Random Glucose 348 H Lactic Acid Calcium 7.4 L Phosphorus Magnesium 1.7 L Iron TIBC Iron Saturation Unsaturated IBC Ferritin Total Bilirubin 0.3 AST 20 ALT 14 Alkaline Phosphatase 173 H Creatine Kinase Troponin I Total Protein 5.5 L Albumin 1.7 L Prealbumin Triglycerides 151 H Cholesterol 149 Total LDL Cholesterol 72 HDL Cholesterol 55 Beta-Hydroxybutyrate Urine Color Urine Appearance Urine pH Ur Specific [place] Urine Protein Urine Glucose (UA) Urine Ketones Urine Blood Urine Nitrite Urine Bilirubin Urine Urobilinogen Ur Leukocyte Esterase Urine WBC (Auto) Urine RBC (Auto) U Epithel Cells (Auto) Urine Bacteria (Auto) Stool Occult Blood Acetone, Qual B-Hydroxybutyrate 04/09/19 04/09/19 04/10/19 17:18 21:30 06:00 WBC 9.3 RBC 2.84 L Hgb 8.0 L Hct 24.8 L MCV 87.1 MCH 28.1 MCHC 32.3 RDW 23.6 H Plt Count 514 H MPV 8.3 Absolute Neuts (auto) 6.1 Total Counted Neutrophils % 66.0 Neutrophils % (Manual) Band Neutrophils % Lymphocytes % 21.3 Lymphocytes % (Manual) Monocytes % 11.5 H Monocytes % (Manual) Eosinophils % 0.8 D Eosinophils % (Manual) Basophils % 0.4 Basophils % (Manual) Myelocytes % (Man) Promyelocytes % (Man) Blast Cells % (Manual) Nucleated RBC % 0 Metamyelocytes Hypochromia Toxic Granulation Platelet Estimate Platelet Comment Polychromasia Poikilocytosis Anisocytosis Microcytosis Macrocytosis Spherocytes Target Cells Tear Drop Cells Ovalocytes [place] Cells Schistocytes PT with INR INR PTT (Actin FS) Fibrinogen Puncture Site ABG pH ABG pCO2 at Pt Temp ABG pO2 at Pt Temp ABG HCO3 ABG O2 Sat (Measured) ABG O2 Content ABG Base Excess Atul Test O2 Delivery Device Oxygen Flow Rate Vent Mode Vent Rate PEEP Pressure Support Vent Sodium Potassium Chloride Carbon Dioxide Anion Gap BUN Creatinine Est GFR (CKD-EPI)AfAm Est GFR (CKD-EPI)NonAf POC Glucometer [phone] Random Glucose Lactic Acid Calcium Phosphorus Magnesium Iron TIBC Iron Saturation Unsaturated IBC Ferritin Total Bilirubin AST ALT Alkaline Phosphatase Creatine Kinase Troponin I Total Protein Albumin Prealbumin Triglycerides Cholesterol Total LDL Cholesterol HDL Cholesterol Beta-Hydroxybutyrate Urine Color Urine Appearance Urine pH Ur Specific [place] Urine Protein Urine Glucose (UA) Urine Ketones Urine Blood Urine Nitrite Urine Bilirubin Urine Urobilinogen Ur Leukocyte Esterase Urine WBC (Auto) Urine RBC (Auto) U Epithel Cells (Auto) Urine Bacteria (Auto) Stool Occult Blood Acetone, Qual B-Hydroxybutyrate 04/10/19 04/10/19 06:00 07:35 WBC RBC Hgb Hct MCV MCH MCHC RDW Plt Count MPV Absolute Neuts (auto) Total Counted Neutrophils % Neutrophils % (Manual) Band Neutrophils % Lymphocytes % Lymphocytes % (Manual) Monocytes % Monocytes % (Manual) Eosinophils % Eosinophils % (Manual) Basophils % Basophils % (Manual) Myelocytes % (Man) Promyelocytes % (Man) Blast Cells % (Manual) Nucleated RBC % Metamyelocytes Hypochromia Toxic Granulation Platelet Estimate Platelet Comment Polychromasia Poikilocytosis Anisocytosis Microcytosis Macrocytosis Spherocytes Target Cells Tear Drop Cells Ovalocytes [place] Cells Schistocytes PT with INR INR PTT (Actin FS) Fibrinogen Puncture Site ABG pH ABG pCO2 at Pt Temp ABG pO2 at Pt Temp ABG HCO3 ABG O2 Sat (Measured) ABG O2 Content ABG Base Excess Atul Test O2 Delivery Device Oxygen Flow Rate Vent Mode Vent Rate PEEP Pressure Support Vent Sodium 138 Potassium 3.1 L Chloride 102 Carbon Dioxide 29 Anion Gap 7 L BUN 6.8 L Creatinine 0.3 L Est GFR (CKD-EPI)AfAm 155.82 Est GFR (CKD-EPI)NonAf 134.44 POC Glucometer 276 Random Glucose 225 H Lactic Acid Calcium 7.7 L Phosphorus Magnesium 1.7 L Iron TIBC Iron Saturation Unsaturated IBC Ferritin Total Bilirubin 0.3 AST 19 ALT 14 Alkaline Phosphatase 175 H Creatine Kinase Troponin I Total Protein 5.5 L Albumin 1.8 L Prealbumin Triglycerides Cholesterol Total LDL Cholesterol HDL Cholesterol Beta-Hydroxybutyrate Urine Color Urine Appearance Urine pH Ur Specific [place] Urine Protein Urine Glucose (UA) Urine Ketones Urine Blood Urine Nitrite Urine Bilirubin Urine Urobilinogen Ur Leukocyte Esterase Urine WBC (Auto) Urine RBC (Auto) U Epithel Cells (Auto) Urine Bacteria (Auto) Stool Occult Blood Acetone, Qual B-Hydroxybutyrate Laboratory Results - last 24 hr 03/17/19 03/17/19 03/17/19 05:20 05:20 05:20 WBC 16.2 H RBC 3.60 Hgb 8.7 L Hct 27.2 L MCV 75.4 L MCH 24.0 L MCHC 31.9 L RDW 24.5 H Plt Count 150 D MPV 9.4 Absolute Neuts (auto) 14.6 H Total Counted Neutrophils % 89.6 H Neutrophils % (Manual) 94.0 H Band Neutrophils % 3.0 Lymphocytes % 8.4 D Lymphocytes % (Manual) 2.0 L D Monocytes % 1.6 L Monocytes % (Manual) 0 L D Eosinophils % 0.3 D Eosinophils % (Manual) 0.0 D Basophils % 0.1 Basophils % (Manual) 0.0 Myelocytes % (Man) 0 D Promyelocytes % (Man) 0 Blast Cells % (Manual) 0 Nucleated RBC % 1 H Metamyelocytes 0 Hypochromia 1+ Toxic Granulation Platelet Estimate Decreased Platelet Comment Polychromasia 0 Poikilocytosis 1+ Anisocytosis 1+ Microcytosis 1+ Macrocytosis 0 Spherocytes Target Cells 1+ Tear Drop Cells Ovalocytes 1+ [place] Cells Schistocytes PT with INR INR PTT (Actin FS) 24.9 L Fibrinogen Puncture Site ABG pH ABG pCO2 at Pt Temp ABG pO2 at Pt Temp ABG HCO3 ABG O2 Sat (Measured) ABG O2 Content ABG Base Excess Atul Test O2 Delivery Device Oxygen Flow Rate Vent Mode Vent Rate PEEP Pressure Support Vent Sodium 141 Potassium 3.8 Chloride 109 H Carbon Dioxide 22 Anion Gap 10 BUN 13.0 Creatinine 0.4 L Est GFR (CKD-EPI)AfAm 141.75 Est GFR (CKD-EPI)NonAf 122.30 POC Glucometer Random Glucose 244 H Lactic Acid Calcium 6.4 L* Phosphorus 1.0 L* Magnesium 1.8 Iron TIBC Iron Saturation Unsaturated IBC Ferritin Total Bilirubin 0.3 AST 24 ALT 10 L Alkaline Phosphatase 145 H Creatine Kinase Troponin I Total Protein 4.0 L Albumin 1.2 L Prealbumin Triglycerides Cholesterol Total LDL Cholesterol HDL Cholesterol Beta-Hydroxybutyrate Urine Color Urine Appearance Urine pH Ur Specific [place] Urine Protein Urine Glucose (UA) Urine Ketones Urine Blood Urine Nitrite Urine Bilirubin Urine Urobilinogen Ur Leukocyte Esterase Urine WBC (Auto) Urine RBC (Auto) U Epithel Cells (Auto) Urine Bacteria (Auto) Stool Occult Blood Acetone, Qual B-Hydroxybutyrate 03/17/19 03/17/19 03/17/19 05:29 12:19 17:43 WBC RBC Hgb Hct MCV MCH MCHC RDW Plt Count MPV Absolute Neuts (auto) Total Counted Neutrophils % Neutrophils % (Manual) Band Neutrophils % Lymphocytes % Lymphocytes % (Manual) Monocytes % Monocytes % (Manual) Eosinophils % Eosinophils % (Manual) Basophils % Basophils % (Manual) Myelocytes % (Man) Promyelocytes % (Man) Blast Cells % (Manual) Nucleated RBC % Metamyelocytes Hypochromia Toxic Granulation Platelet Estimate Platelet Comment Polychromasia Poikilocytosis Anisocytosis Microcytosis Macrocytosis Spherocytes Target Cells Tear Drop Cells Ovalocytes [place] Cells Schistocytes PT with INR INR PTT (Actin FS) Fibrinogen Puncture Site ABG pH ABG pCO2 at Pt Temp ABG pO2 at Pt Temp ABG HCO3 ABG O2 Sat (Measured) ABG O2 Content ABG Base Excess Atul Test O2 Delivery Device Oxygen Flow Rate Vent Mode Vent Rate PEEP Pressure Support Vent Sodium Potassium Chloride Carbon Dioxide Anion Gap BUN Creatinine Est GFR (CKD-EPI)AfAm Est GFR (CKD-EPI)NonAf POC Glucometer 229 156 168 Random Glucose Lactic Acid Calcium Phosphorus Magnesium Iron TIBC Iron Saturation Unsaturated IBC Ferritin Total Bilirubin AST ALT Alkaline Phosphatase Creatine Kinase Troponin I Total Protein Albumin Prealbumin Triglycerides Cholesterol Total LDL Cholesterol HDL Cholesterol Beta-Hydroxybutyrate Urine Color Urine Appearance Urine pH Ur Specific [place] Urine Protein Urine Glucose (UA) Urine Ketones Urine Blood Urine Nitrite Urine Bilirubin Urine Urobilinogen Ur Leukocyte Esterase Urine WBC (Auto) Urine RBC (Auto) U Epithel Cells (Auto) Urine Bacteria (Auto) Stool Occult Blood Acetone, Qual B-Hydroxybutyrate 03/17/19 03/18/19 03/18/19 21:43 05:30 05:30 WBC 7.8 RBC 3.66 Hgb 9.0 L Hct 27.7 L MCV 75.6 L MCH 24.5 L MCHC 32.4 RDW 24.3 H Plt Count 114 L D MPV 9.5 Absolute Neuts (auto) 6.2 Total Counted Neutrophils % 79.9 Neutrophils % (Manual) 76.0 Band Neutrophils % 5.0 Lymphocytes % 16.8 D Lymphocytes % (Manual) 12.0 D Monocytes % 1.8 L Monocytes % (Manual) 0 L Eosinophils % 1.2 D Eosinophils % (Manual) 2.0 D Basophils % 0.3 Basophils % (Manual) 0.0 Myelocytes % (Man) 0 Promyelocytes % (Man) 0 Blast Cells % (Manual) 0 Nucleated RBC % 0 Metamyelocytes 1 D Hypochromia 1+ Toxic Granulation 2+ Platelet Estimate Decreased Platelet Comment Present Polychromasia 1+ Poikilocytosis 1+ Anisocytosis 2+ Microcytosis 1+ Macrocytosis 0 Spherocytes 1+ Target Cells 1+ Tear Drop Cells 1+ Ovalocytes [place] Cells 1+ Schistocytes PT with INR INR PTT (Actin FS) 27.1 Fibrinogen Puncture Site ABG pH ABG pCO2 at Pt Temp ABG pO2 at Pt Temp ABG HCO3 ABG O2 Sat (Measured) ABG O2 Content ABG Base Excess Atul Test O2 Delivery Device Oxygen Flow Rate Vent Mode Vent Rate PEEP Pressure Support Vent Sodium Potassium Chloride Carbon Dioxide Anion Gap BUN Creatinine Est GFR (CKD-EPI)AfAm Est GFR (CKD-EPI)NonAf POC Glucometer 89 Random Glucose Lactic Acid Calcium Phosphorus Magnesium Iron TIBC Iron Saturation Unsaturated IBC Ferritin Total Bilirubin AST ALT Alkaline Phosphatase Creatine Kinase Troponin I Total Protein Albumin Prealbumin Triglycerides Cholesterol Total LDL Cholesterol HDL Cholesterol Beta-Hydroxybutyrate Urine Color Urine Appearance Urine pH Ur Specific [place] Urine Protein Urine Glucose (UA) Urine Ketones Urine Blood Urine Nitrite Urine Bilirubin Urine Urobilinogen Ur Leukocyte Esterase Urine WBC (Auto) Urine RBC (Auto) U Epithel Cells (Auto) Urine Bacteria (Auto) Stool Occult Blood Acetone, Qual B-Hydroxybutyrate 03/18/19 03/18/19 03/18/19 05:30 05:42 10:53 WBC RBC Hgb Hct MCV MCH MCHC RDW Plt Count MPV Absolute Neuts (auto) Total Counted Neutrophils % Neutrophils % (Manual) Band Neutrophils % Lymphocytes % Lymphocytes % (Manual) Monocytes % Monocytes % (Manual) Eosinophils % Eosinophils % (Manual) Basophils % Basophils % (Manual) Myelocytes % (Man) Promyelocytes % (Man) Blast Cells % (Manual) Nucleated RBC % Metamyelocytes Hypochromia Toxic Granulation Platelet Estimate Platelet Comment Polychromasia Poikilocytosis Anisocytosis Microcytosis Macrocytosis Spherocytes Target Cells Tear Drop Cells Ovalocytes [place] Cells Schistocytes PT with INR INR PTT (Actin FS) Fibrinogen Puncture Site ABG pH ABG pCO2 at Pt Temp ABG pO2 at Pt Temp ABG HCO3 ABG O2 Sat (Measured) ABG O2 Content ABG Base Excess Atul Test O2 Delivery Device Oxygen Flow Rate Vent Mode Vent Rate PEEP Pressure Support Vent Sodium 143 Potassium 3.1 L Chloride 107 Carbon Dioxide 24 Anion Gap 11 BUN 9.0 Creatinine 0.4 L Est GFR (CKD-EPI)AfAm 141.75 Est GFR (CKD-EPI)NonAf 122.30 POC Glucometer 201 169 Random Glucose 218 H Lactic Acid Calcium 6.5 L* Phosphorus 1.6 L Magnesium 1.5 L Iron TIBC Iron Saturation Unsaturated IBC Ferritin Total Bilirubin 0.5 AST 28 ALT 8 L Alkaline Phosphatase 276 H Creatine Kinase Troponin I Total Protein 3.9 L Albumin 1.2 L Prealbumin Triglycerides Cholesterol Total LDL Cholesterol HDL Cholesterol Beta-Hydroxybutyrate Urine Color Urine Appearance Urine pH Ur Specific [place] Urine Protein Urine Glucose (UA) Urine Ketones Urine Blood Urine Nitrite Urine Bilirubin Urine Urobilinogen Ur Leukocyte Esterase Urine WBC (Auto) Urine RBC (Auto) U Epithel Cells (Auto) Urine Bacteria (Auto) Stool Occult Blood Acetone, Qual B-Hydroxybutyrate 03/18/19 03/18/19 03/18/19 17:00 17:14 23:04 WBC RBC Hgb Hct MCV MCH MCHC RDW Plt Count MPV Absolute Neuts (auto) Total Counted Neutrophils % Neutrophils % (Manual) Band Neutrophils % Lymphocytes % Lymphocytes % (Manual) Monocytes % Monocytes % (Manual) Eosinophils % Eosinophils % (Manual) Basophils % Basophils % (Manual) Myelocytes % (Man) Promyelocytes % (Man) Blast Cells % (Manual) Nucleated RBC % Metamyelocytes Hypochromia Toxic Granulation Platelet Estimate Platelet Comment Polychromasia Poikilocytosis Anisocytosis Microcytosis Macrocytosis Spherocytes Target Cells Tear Drop Cells Ovalocytes [place] Cells Schistocytes PT with INR INR PTT (Actin FS) Fibrinogen Puncture Site ABG pH ABG pCO2 at Pt Temp ABG pO2 at Pt Temp ABG HCO3 ABG O2 Sat (Measured) ABG O2 Content ABG Base Excess Atul Test O2 Delivery Device Oxygen Flow Rate Vent Mode Vent Rate PEEP Pressure Support Vent Sodium 145 Potassium 3.0 L Chloride 107 Carbon Dioxide 19 L Anion Gap 18 H BUN 6.8 L Creatinine 0.3 L Est GFR (CKD-EPI)AfAm 155.82 Est GFR (CKD-EPI)NonAf 134.44 POC Glucometer 299 185 Random Glucose 303 H Lactic Acid Calcium 6.7 L* Phosphorus 3.5 Magnesium 2.0 Iron TIBC Iron Saturation Unsaturated IBC Ferritin Total Bilirubin AST ALT Alkaline Phosphatase Creatine Kinase Troponin I Total Protein Albumin Prealbumin Triglycerides Cholesterol Total LDL Cholesterol HDL Cholesterol Beta-Hydroxybutyrate Urine Color Urine Appearance Urine pH Ur Specific [place] Urine Protein Urine Glucose (UA) Urine Ketones Urine Blood Urine Nitrite Urine Bilirubin Urine Urobilinogen Ur Leukocyte Esterase Urine WBC (Auto) Urine RBC (Auto) U Epithel Cells (Auto) Urine Bacteria (Auto) Stool Occult Blood Acetone, Qual B-Hydroxybutyrate 03/19/19 03/19/19 03/19/19 05:00 05:00 05:00 WBC 8.0 RBC 3.37 L Hgb 8.3 L Hct 25.8 L MCV 76.5 L MCH 24.7 L MCHC 32.3 RDW 24.0 H Plt Count 94 L MPV 10.2 Absolute Neuts (auto) 6.9 Total Counted Neutrophils % 87.4 H Neutrophils % (Manual) 81.6 Band Neutrophils % 0.0 Lymphocytes % 9.3 D Lymphocytes % (Manual) 10.2 Monocytes % 1.8 L Monocytes % (Manual) 2 L D Eosinophils % 0.8 Eosinophils % (Manual) 2.1 Basophils % 0.7 Basophils % (Manual) 0.0 Myelocytes % (Man) 0 Promyelocytes % (Man) 0 Blast Cells % (Manual) 0 Nucleated RBC % 0 Metamyelocytes 3 H D Hypochromia 0 Toxic Granulation Platelet Estimate Decreased Platelet Comment Polychromasia 1+ Poikilocytosis 2+ Anisocytosis 1+ Microcytosis 1+ Macrocytosis 0 Spherocytes Target Cells Tear Drop Cells Ovalocytes 1+ [place] Cells Schistocytes 1+ PT with INR INR PTT (Actin FS) 30.7 Fibrinogen Puncture Site ABG pH ABG pCO2 at Pt Temp ABG pO2 at Pt Temp ABG HCO3 ABG O2 Sat (Measured) ABG O2 Content ABG Base Excess Atul Test O2 Delivery Device Oxygen Flow Rate Vent Mode Vent Rate PEEP Pressure Support Vent Sodium 144 Potassium 2.7 L* Chloride 106 Carbon Dioxide 19 L Anion Gap 18 H BUN 6.8 L Creatinine 0.4 L Est GFR (CKD-EPI)AfAm 141.75 Est GFR (CKD-EPI)NonAf 122.30 POC Glucometer Random Glucose 335 H Lactic Acid Calcium 6.5 L* Phosphorus 1.7 L Magnesium 1.7 L Iron TIBC Iron Saturation Unsaturated IBC Ferritin Total Bilirubin 0.4 AST 34 ALT 10 L Alkaline Phosphatase 363 H Creatine Kinase Troponin I Total Protein 4.1 L Albumin 1.2 L Prealbumin Triglycerides Cholesterol Total LDL Cholesterol HDL Cholesterol Beta-Hydroxybutyrate Urine Color Urine Appearance Urine pH Ur Specific [place] Urine Protein Urine Glucose (UA) Urine Ketones Urine Blood Urine Nitrite Urine Bilirubin Urine Urobilinogen Ur Leukocyte Esterase Urine WBC (Auto) Urine RBC (Auto) U Epithel Cells (Auto) Urine Bacteria (Auto) Stool Occult Blood Acetone, Qual B-Hydroxybutyrate 03/19/19 03/19/19 03/19/19 05:00 05:26 06:20 WBC 8.9 RBC 3.78 Hgb 9.1 L Hct 30.8 L D MCV 81.4 MCH 24.1 L MCHC 29.6 L RDW 24.5 H Plt Count 87 L MPV 9.8 Absolute Neuts (auto) Total Counted Neutrophils % Neutrophils % (Manual) Band Neutrophils % Lymphocytes % Lymphocytes % (Manual) Monocytes % Monocytes % (Manual) Eosinophils % Eosinophils % (Manual) Basophils % Basophils % (Manual) Myelocytes % (Man) Promyelocytes % (Man) Blast Cells % (Manual) Nucleated RBC % Metamyelocytes Hypochromia Toxic Granulation Platelet Estimate Platelet Comment Polychromasia Poikilocytosis Anisocytosis Microcytosis Macrocytosis Spherocytes Target Cells Tear Drop Cells Ovalocytes [place] Cells Schistocytes PT with INR INR PTT (Actin FS) Fibrinogen Puncture Site ABG pH ABG pCO2 at Pt Temp ABG pO2 at Pt Temp ABG HCO3 ABG O2 Sat (Measured) ABG O2 Content ABG Base Excess Atul Test O2 Delivery Device Oxygen Flow Rate Vent Mode Vent Rate PEEP Pressure Support Vent Sodium Potassium Chloride Carbon Dioxide Anion Gap BUN Creatinine Est GFR (CKD-EPI)AfAm Est GFR (CKD-EPI)NonAf POC Glucometer 332 Random Glucose Lactic Acid Calcium Phosphorus Magnesium Iron TIBC Iron Saturation Unsaturated IBC Ferritin Total Bilirubin AST ALT Alkaline Phosphatase Creatine Kinase Troponin I Total Protein Albumin Prealbumin 7.0 L Triglycerides Cholesterol Total LDL Cholesterol HDL Cholesterol Beta-Hydroxybutyrate Urine Color Urine Appearance Urine pH Ur Specific [place] Urine Protein Urine Glucose (UA) Urine Ketones Urine Blood Urine Nitrite Urine Bilirubin Urine Urobilinogen Ur Leukocyte Esterase Urine WBC (Auto) Urine RBC (Auto) U Epithel Cells (Auto) Urine Bacteria (Auto) Stool Occult Blood Acetone, Qual B-Hydroxybutyrate 03/19/19 03/19/19 03/19/19 06:20 06:20 06:20 WBC RBC Hgb Hct MCV MCH MCHC RDW Plt Count MPV Absolute Neuts (auto) Total Counted Neutrophils % Neutrophils % (Manual) Band Neutrophils % Lymphocytes % Lymphocytes % (Manual) Monocytes % Monocytes % (Manual) Eosinophils % Eosinophils % (Manual) Basophils % Basophils % (Manual) Myelocytes % (Man) Promyelocytes % (Man) Blast Cells % (Manual) Nucleated RBC % Metamyelocytes Hypochromia Toxic Granulation Platelet Estimate Platelet Comment Polychromasia Poikilocytosis Anisocytosis Microcytosis Macrocytosis Spherocytes Target Cells Tear Drop Cells Ovalocytes [place] Cells Schistocytes PT with INR INR PTT (Actin FS) Fibrinogen Puncture Site ABG pH ABG pCO2 at Pt Temp ABG pO2 at Pt Temp ABG HCO3 ABG O2 Sat (Measured) ABG O2 Content ABG Base Excess Atul Test O2 Delivery Device Oxygen Flow Rate Vent Mode Vent Rate PEEP Pressure Support Vent Sodium 146 H Potassium 2.9 L* Chloride 106 Carbon Dioxide 16 L Anion Gap 24 H BUN 7.8 Creatinine 0.7 Est GFR (CKD-EPI)AfAm 117.91 Est GFR (CKD-EPI)NonAf 101.74 POC Glucometer Random Glucose 371 H Lactic Acid 8.1 H* Calcium 7.0 L Phosphorus Magnesium 2.3 Iron TIBC Iron Saturation Unsaturated IBC Ferritin Total Bilirubin AST ALT Alkaline Phosphatase Creatine Kinase 71 Troponin I 0.53 H Total Protein Albumin Prealbumin Triglycerides Cholesterol Total LDL Cholesterol HDL Cholesterol Beta-Hydroxybutyrate Urine Color Urine Appearance Urine pH Ur Specific [place] Urine Protein Urine Glucose (UA) Urine Ketones Urine Blood Urine Nitrite Urine Bilirubin Urine Urobilinogen Ur Leukocyte Esterase Urine WBC (Auto) Urine RBC (Auto) U Epithel Cells (Auto) Urine Bacteria (Auto) Stool Occult Blood Acetone, Qual B-Hydroxybutyrate 03/19/19 03/19/19 03/19/19 06:22 06:40 06:40 WBC RBC Hgb Hct MCV MCH MCHC RDW Plt Count MPV Absolute Neuts (auto) Total Counted Neutrophils % Neutrophils % (Manual) Band Neutrophils % Lymphocytes % Lymphocytes % (Manual) Monocytes % Monocytes % (Manual) Eosinophils % Eosinophils % (Manual) Basophils % Basophils % (Manual) Myelocytes % (Man) Promyelocytes % (Man) Blast Cells % (Manual) Nucleated RBC % Metamyelocytes Hypochromia Toxic Granulation Platelet Estimate Platelet Comment Polychromasia Poikilocytosis Anisocytosis Microcytosis Macrocytosis Spherocytes Target Cells Tear Drop Cells Ovalocytes [place] Cells Schistocytes PT with INR INR PTT (Actin FS) Fibrinogen Puncture Site Right radial Right radial ABG pH 7.12 L* 7.04 L* ABG pCO2 at Pt Temp 57.3 H 58.1 H ABG pO2 at Pt Temp 131 H 67.5 L ABG HCO3 17.8 L 15.0 L ABG O2 Sat (Measured) 96.9 78.5 L ABG O2 Content 12.4 10.7 ABG Base Excess -11.0 L -15.1 L Atul Test Positive Positive O2 Delivery Device Oxygen Flow Rate 100 100% Vent Mode Vol/ac A/c Vent Rate 14 14 PEEP 5.0 5.0 Pressure Support Vent 400 400 Sodium Potassium Chloride Carbon Dioxide Anion Gap BUN Creatinine Est GFR (CKD-EPI)AfAm Est GFR (CKD-EPI)NonAf POC Glucometer 312 Random Glucose Lactic Acid Calcium Phosphorus Magnesium Iron TIBC Iron Saturation Unsaturated IBC Ferritin Total Bilirubin AST ALT Alkaline Phosphatase Creatine Kinase Troponin I Total Protein Albumin Prealbumin Triglycerides Cholesterol Total LDL Cholesterol HDL Cholesterol Beta-Hydroxybutyrate Urine Color Urine Appearance Urine pH Ur Specific [place] Urine Protein Urine Glucose (UA) Urine Ketones Urine Blood Urine Nitrite Urine Bilirubin Urine Urobilinogen Ur Leukocyte Esterase Urine WBC (Auto) Urine RBC (Auto) U Epithel Cells (Auto) Urine Bacteria (Auto) Stool Occult Blood Acetone, Qual B-Hydroxybutyrate 03/19/19 03/19/19 03/19/19 09:11 10:41 15:30 WBC RBC Hgb Hct MCV MCH MCHC RDW Plt Count MPV Absolute Neuts (auto) Total Counted Neutrophils % Neutrophils % (Manual) Band Neutrophils % Lymphocytes % Lymphocytes % (Manual) Monocytes % Monocytes % (Manual) Eosinophils % Eosinophils % (Manual) Basophils % Basophils % (Manual) Myelocytes % (Man) Promyelocytes % (Man) Blast Cells % (Manual) Nucleated RBC % Metamyelocytes Hypochromia Toxic Granulation Platelet Estimate Platelet Comment Polychromasia Poikilocytosis Anisocytosis Microcytosis Macrocytosis Spherocytes Target Cells Tear Drop Cells Ovalocytes [place] Cells Schistocytes PT with INR INR PTT (Actin FS) Fibrinogen Puncture Site Right radial ABG pH 7.23 L ABG pCO2 at Pt Temp 54.7 H ABG pO2 at Pt Temp 86.4 ABG HCO3 21.9 L ABG O2 Sat (Measured) 93.7 L ABG O2 Content 11.6 ABG Base Excess -5.2 L Atul Test Positive O2 Delivery Device Oxygen Flow Rate 100 Vent Mode Vol/ac Vent Rate 14 PEEP 5.0 Pressure Support Vent 400 Sodium Potassium Chloride Carbon Dioxide Anion Gap BUN Creatinine Est GFR (CKD-EPI)AfAm Est GFR (CKD-EPI)NonAf POC Glucometer 303 Random Glucose Lactic Acid 2.3 H* Calcium Phosphorus Magnesium Iron TIBC Iron Saturation Unsaturated IBC Ferritin Total Bilirubin AST ALT Alkaline Phosphatase Creatine Kinase Troponin I Total Protein Albumin Prealbumin Triglycerides Cholesterol Total LDL Cholesterol HDL Cholesterol Beta-Hydroxybutyrate Urine Color Urine Appearance Urine pH Ur Specific [place] Urine Protein Urine Glucose (UA) Urine Ketones Urine Blood Urine Nitrite Urine Bilirubin Urine Urobilinogen Ur Leukocyte Esterase Urine WBC (Auto) Urine RBC (Auto) U Epithel Cells (Auto) Urine Bacteria (Auto) Stool Occult Blood Acetone, Qual B-Hydroxybutyrate 03/19/19 03/19/19 03/19/19 15:40 15:40 17:26 WBC 11.7 H RBC 3.31 L Hgb 7.9 L Hct 25.2 L D MCV 76.1 L MCH 23.8 L MCHC 31.3 L RDW 24.4 H Plt Count 125 L D MPV 9.9 Absolute Neuts (auto) 10.7 H Total Counted 100 Neutrophils % 92.1 H Neutrophils % (Manual) 77.0 Band Neutrophils % 3.0 Lymphocytes % 5.8 L D Lymphocytes % (Manual) 14.0 D Monocytes % 2.0 L Monocytes % (Manual) 3 L Eosinophils % 0.0 D Eosinophils % (Manual) Basophils % 0.1 Basophils % (Manual) Myelocytes % (Man) 3 H D Promyelocytes % (Man) Blast Cells % (Manual) Nucleated RBC % 1 H Metamyelocytes Hypochromia 1+ Toxic Granulation Platelet Estimate Adequate Platelet Comment Polychromasia Poikilocytosis Anisocytosis 3+ Microcytosis Macrocytosis Spherocytes Target Cells Tear Drop Cells Ovalocytes [place] Cells Schistocytes 1+ PT with INR INR PTT (Actin FS) Fibrinogen Puncture Site ABG pH ABG pCO2 at Pt Temp ABG pO2 at Pt Temp ABG HCO3 ABG O2 Sat (Measured) ABG O2 Content ABG Base Excess Atul Test O2 Delivery Device Oxygen Flow Rate Vent Mode Vent Rate PEEP Pressure Support Vent Sodium 146 H Potassium 2.9 L* Chloride 107 Carbon Dioxide 29 Anion Gap 10 BUN 6.9 L Creatinine 0.7 Est GFR (CKD-EPI)AfAm 117.91 Est GFR (CKD-EPI)NonAf 101.74 POC Glucometer 315 Random Glucose 293 H Lactic Acid Calcium 6.9 L* Phosphorus Magnesium 1.8 Iron TIBC Iron Saturation Unsaturated IBC Ferritin Total Bilirubin 0.4 AST 49 H ALT 17 Alkaline Phosphatase 586 H Creatine Kinase 109 Troponin I 1.01 H* Total Protein 4.5 L Albumin 1.3 L Prealbumin Triglycerides Cholesterol Total LDL Cholesterol HDL Cholesterol Beta-Hydroxybutyrate Urine Color Urine Appearance Urine pH Ur Specific [place] Urine Protein Urine Glucose (UA) Urine Ketones Urine Blood Urine Nitrite Urine Bilirubin Urine Urobilinogen Ur Leukocyte Esterase Urine WBC (Auto) Urine RBC (Auto) U Epithel Cells (Auto) Urine Bacteria (Auto) Stool Occult Blood Acetone, Qual B-Hydroxybutyrate 03/19/19 03/19/19 03/19/19 21:35 21:35 21:45 WBC 8.1 RBC 2.86 L Hgb 6.9 L* Hct 21.4 L D MCV 75.0 L MCH 24.0 L MCHC 32.0 RDW 24.0 H Plt Count 92 L D MPV 9.7 Absolute Neuts (auto) 6.9 Total Counted 100 Neutrophils % 85.0 H Neutrophils % (Manual) 74.0 Band Neutrophils % 7.0 Lymphocytes % 12.1 D Lymphocytes % (Manual) 12.0 Monocytes % 2.7 L Monocytes % (Manual) 4 Eosinophils % 0.1 D Eosinophils % (Manual) Basophils % 0.1 Basophils % (Manual) Myelocytes % (Man) 1 D Promyelocytes % (Man) Blast Cells % (Manual) Nucleated RBC % 1 H Metamyelocytes 1 D Hypochromia 2+ Toxic Granulation Platelet Estimate Decreased Platelet Comment Polychromasia 1+ Poikilocytosis Anisocytosis 2+ Microcytosis Macrocytosis Spherocytes Target Cells Tear Drop Cells Ovalocytes [place] Cells Schistocytes PT with INR INR PTT (Actin FS) Fibrinogen Puncture Site Right radial ABG pH 7.48 H ABG pCO2 at Pt Temp 40.8 ABG pO2 at Pt Temp 264 H ABG HCO3 29.9 H ABG O2 Sat (Measured) 99.8 H ABG O2 Content 10.1 ABG Base Excess 6.2 H Atul Test Positive O2 Delivery Device Ventilater Oxygen Flow Rate 80% Vent Mode Vent Rate 14 PEEP 5.0 Pressure Support Vent 400 Sodium Potassium Chloride Carbon Dioxide Anion Gap BUN Creatinine Est GFR (CKD-EPI)AfAm Est GFR (CKD-EPI)NonAf POC Glucometer 192 Random Glucose Lactic Acid Calcium Phosphorus Magnesium Iron TIBC Iron Saturation Unsaturated IBC Ferritin Total Bilirubin AST ALT Alkaline Phosphatase Creatine Kinase Troponin I Total Protein Albumin Prealbumin Triglycerides Cholesterol Total LDL Cholesterol HDL Cholesterol Beta-Hydroxybutyrate Urine Color Urine Appearance Urine pH Ur Specific [place] Urine Protein Urine Glucose (UA) Urine Ketones Urine Blood Urine Nitrite Urine Bilirubin Urine Urobilinogen Ur Leukocyte Esterase Urine WBC (Auto) Urine RBC (Auto) U Epithel Cells (Auto) Urine Bacteria (Auto) Stool Occult Blood Acetone, Qual B-Hydroxybutyrate 03/19/19 03/19/19 03/19/19 23:15 23:15 23:15 WBC RBC Hgb Hct MCV MCH MCHC RDW Plt Count MPV Absolute Neuts (auto) Total Counted Neutrophils % Neutrophils % (Manual) Band Neutrophils % Lymphocytes % Lymphocytes % (Manual) Monocytes % Monocytes % (Manual) Eosinophils % Eosinophils % (Manual) Basophils % Basophils % (Manual) Myelocytes % (Man) Promyelocytes % (Man) Blast Cells % (Manual) Nucleated RBC % Metamyelocytes Hypochromia Toxic Granulation Platelet Estimate Platelet Comment Polychromasia Poikilocytosis Anisocytosis Microcytosis Macrocytosis Spherocytes Target Cells Tear Drop Cells Ovalocytes [place] Cells Schistocytes PT with INR 17.70 H INR 1.49 H PTT (Actin FS) 36.3 Fibrinogen 359.0 Puncture Site ABG pH ABG pCO2 at Pt Temp ABG pO2 at Pt Temp ABG HCO3 ABG O2 Sat (Measured) ABG O2 Content ABG Base Excess Atul Test O2 Delivery Device Oxygen Flow Rate Vent Mode Vent Rate PEEP Pressure Support Vent Sodium 146 H Potassium 3.1 L Chloride 108 H Carbon Dioxide 32 Anion Gap 6 L BUN 7.1 Creatinine 0.6 Est GFR (CKD-EPI)AfAm 124.05 Est GFR (CKD-EPI)NonAf 107.03 POC Glucometer Random Glucose 227 H Lactic Acid Calcium 6.4 L* Phosphorus Magnesium Iron TIBC Iron Saturation Unsaturated IBC Ferritin Total Bilirubin 0.4 AST 37 ALT 13 Alkaline Phosphatase 460 H Creatine Kinase Troponin I 1.94 H* Total Protein 4.0 L Albumin 1.2 L Prealbumin Triglycerides Cholesterol Total LDL Cholesterol HDL Cholesterol Beta-Hydroxybutyrate Urine Color Urine Appearance Urine pH Ur Specific [place] Urine Protein Urine Glucose (UA) Urine Ketones Urine Blood Urine Nitrite Urine Bilirubin Urine Urobilinogen Ur Leukocyte Esterase Urine WBC (Auto) Urine RBC (Auto) U Epithel Cells (Auto) Urine Bacteria (Auto) Stool Occult Blood Acetone, Qual B-Hydroxybutyrate 03/19/19 03/20/19 03/20/19 23:15 05:30 05:30 WBC 9.9 RBC 2.90 L Hgb 7.1 L Hct 21.8 L MCV 75.3 L MCH 24.5 L MCHC 32.5 RDW 24.3 H Plt Count 72 L D MPV 9.3 Absolute Neuts (auto) 8.4 H Total Counted Neutrophils % 84.5 H Neutrophils % (Manual) 81.0 Band Neutrophils % 1.0 Lymphocytes % 12.6 Lymphocytes % (Manual) 11.0 Monocytes % 1.9 L Monocytes % (Manual) 2 L Eosinophils % 0.8 D Eosinophils % (Manual) 0.0 D Basophils % 0.2 Basophils % (Manual) 0.0 Myelocytes % (Man) 2 D Promyelocytes % (Man) 0 Blast Cells % (Manual) 0 Nucleated RBC % 1 H Metamyelocytes 3 H D Hypochromia 2+ Toxic Granulation Platelet Estimate Decreased Platelet Comment Polychromasia 3+ Poikilocytosis 1+ Anisocytosis 3+ Microcytosis 3+ Macrocytosis 0 Spherocytes Target Cells Tear Drop Cells Ovalocytes 1+ [place] Cells Schistocytes PT with INR INR PTT (Actin FS) 33.4 Fibrinogen Puncture Site ABG pH ABG pCO2 at Pt Temp ABG pO2 at Pt Temp ABG HCO3 ABG O2 Sat (Measured) ABG O2 Content ABG Base Excess Atul Test O2 Delivery Device Oxygen Flow Rate Vent Mode Vent Rate PEEP Pressure Support Vent Sodium Potassium Chloride Carbon Dioxide Anion Gap BUN Creatinine Est GFR (CKD-EPI)AfAm Est GFR (CKD-EPI)NonAf POC Glucometer Random Glucose Lactic Acid Calcium Phosphorus Magnesium Iron TIBC Iron Saturation Unsaturated IBC Ferritin Total Bilirubin AST ALT Alkaline Phosphatase Creatine Kinase Troponin I Cancelled Total Protein Albumin Prealbumin Triglycerides Cholesterol Total LDL Cholesterol HDL Cholesterol Beta-Hydroxybutyrate Urine Color Urine Appearance Urine pH Ur Specific [place] Urine Protein Urine Glucose (UA) Urine Ketones Urine Blood Urine Nitrite Urine Bilirubin Urine Urobilinogen Ur Leukocyte Esterase Urine WBC (Auto) Urine RBC (Auto) U Epithel Cells (Auto) Urine Bacteria (Auto) Stool Occult Blood Acetone, Qual B-Hydroxybutyrate 03/20/19 03/20/19 03/20/19 05:30 05:30 05:40 WBC RBC Hgb Hct MCV MCH MCHC RDW Plt Count MPV Absolute Neuts (auto) Total Counted Neutrophils % Neutrophils % (Manual) Band Neutrophils % Lymphocytes % Lymphocytes % (Manual) Monocytes % Monocytes % (Manual) Eosinophils % Eosinophils % (Manual) Basophils % Basophils % (Manual) Myelocytes % (Man) Promyelocytes % (Man) Blast Cells % (Manual) Nucleated RBC % Metamyelocytes Hypochromia Toxic Granulation Platelet Estimate Platelet Comment Polychromasia Poikilocytosis Anisocytosis Microcytosis Macrocytosis Spherocytes Target Cells Tear Drop Cells Ovalocytes [place] Cells Schistocytes PT with INR INR PTT (Actin FS) Fibrinogen Puncture Site ABG pH ABG pCO2 at Pt Temp ABG pO2 at Pt Temp ABG HCO3 ABG O2 Sat (Measured) ABG O2 Content ABG Base Excess Atul Test O2 Delivery Device Oxygen Flow Rate Vent Mode Vent Rate PEEP Pressure Support Vent Sodium 145 Potassium 3.2 L Chloride 106 Carbon Dioxide 27 Anion Gap 11 BUN 10.1 Creatinine 0.5 L Est GFR (CKD-EPI)AfAm 131.72 Est GFR (CKD-EPI)NonAf 113.65 POC Glucometer 397 Random Glucose 366 H Lactic Acid Calcium 6.7 L* Phosphorus 0.7 L* Magnesium 2.0 Iron TIBC Iron Saturation Unsaturated IBC Ferritin Total Bilirubin 0.3 AST 29 ALT 12 L Alkaline Phosphatase 422 H Creatine Kinase Troponin I Total Protein 4.0 L Albumin 1.2 L Prealbumin Triglycerides Cholesterol Total LDL Cholesterol HDL Cholesterol Beta-Hydroxybutyrate Urine Color Urine Appearance Urine pH Ur Specific [place] Urine Protein Urine Glucose (UA) Urine Ketones Urine Blood Urine Nitrite Urine Bilirubin Urine Urobilinogen Ur Leukocyte Esterase Urine WBC (Auto) Urine RBC (Auto) U Epithel Cells (Auto) Urine Bacteria (Auto) Stool Occult Blood Positive Acetone, Qual B-Hydroxybutyrate 03/20/19 03/20/19 03/20/19 09:59 10:59 12:24 WBC RBC Hgb Hct MCV MCH MCHC RDW Plt Count MPV Absolute Neuts (auto) Total Counted Neutrophils % Neutrophils % (Manual) Band Neutrophils % Lymphocytes % Lymphocytes % (Manual) Monocytes % Monocytes % (Manual) Eosinophils % Eosinophils % (Manual) Basophils % Basophils % (Manual) Myelocytes % (Man) Promyelocytes % (Man) Blast Cells % (Manual) Nucleated RBC % Metamyelocytes Hypochromia Toxic Granulation Platelet Estimate Platelet Comment Polychromasia Poikilocytosis Anisocytosis Microcytosis Macrocytosis Spherocytes Target Cells Tear Drop Cells Ovalocytes [place] Cells Schistocytes PT with INR INR PTT (Actin FS) Fibrinogen Puncture Site ABG pH ABG pCO2 at Pt Temp ABG pO2 at Pt Temp ABG HCO3 ABG O2 Sat (Measured) ABG O2 Content ABG Base Excess Atul Test O2 Delivery Device Oxygen Flow Rate Vent Mode Vent Rate PEEP Pressure Support Vent Sodium Potassium Chloride Carbon Dioxide Anion Gap BUN Creatinine Est GFR (CKD-EPI)AfAm Est GFR (CKD-EPI)NonAf POC Glucometer [phone] Random Glucose Lactic Acid Calcium Phosphorus Magnesium Iron TIBC Iron Saturation Unsaturated IBC Ferritin Total Bilirubin AST ALT Alkaline Phosphatase Creatine Kinase Troponin I Total Protein Albumin Prealbumin Triglycerides Cholesterol Total LDL Cholesterol HDL Cholesterol Beta-Hydroxybutyrate Urine Color Urine Appearance Urine pH Ur Specific [place] Urine Protein Urine Glucose (UA) Urine Ketones Urine Blood Urine Nitrite Urine Bilirubin Urine Urobilinogen Ur Leukocyte Esterase Urine WBC (Auto) Urine RBC (Auto) U Epithel Cells (Auto) Urine Bacteria (Auto) Stool Occult Blood Acetone, Qual B-Hydroxybutyrate 03/20/19 03/20/19 03/20/19 13:14 14:08 17:00 WBC RBC Hgb Hct MCV MCH MCHC RDW Plt Count MPV Absolute Neuts (auto) Total Counted Neutrophils % Neutrophils % (Manual) Band Neutrophils % Lymphocytes % Lymphocytes % (Manual) Monocytes % Monocytes % (Manual) Eosinophils % Eosinophils % (Manual) Basophils % Basophils % (Manual) Myelocytes % (Man) Promyelocytes % (Man) Blast Cells % (Manual) Nucleated RBC % Metamyelocytes Hypochromia Toxic Granulation Platelet Estimate Platelet Comment Polychromasia Poikilocytosis Anisocytosis Microcytosis Macrocytosis Spherocytes Target Cells Tear Drop Cells Ovalocytes [place] Cells Schistocytes PT with INR INR PTT (Actin FS) Fibrinogen Puncture Site ABG pH ABG pCO2 at Pt Temp ABG pO2 at Pt Temp ABG HCO3 ABG O2 Sat (Measured) ABG O2 Content ABG Base Excess Atul Test O2 Delivery Device Oxygen Flow Rate Vent Mode Vent Rate PEEP Pressure Support Vent Sodium 143 Potassium 3.5 Chloride 104 Carbon Dioxide 29 Anion Gap 10 BUN 10.5 Creatinine 0.4 L Est GFR (CKD-EPI)AfAm 141.75 Est GFR (CKD-EPI)NonAf 122.30 POC Glucometer 139 134 Random Glucose 315 H Lactic Acid Calcium 6.4 L* Phosphorus 2.4 L Magnesium 1.7 L Iron 125 TIBC 124 L Iron Saturation 100 H Unsaturated IBC -1 L Ferritin 220.2 Total Bilirubin AST ALT Alkaline Phosphatase Creatine Kinase Troponin I Total Protein Albumin Prealbumin Triglycerides Cholesterol Total LDL Cholesterol HDL Cholesterol Beta-Hydroxybutyrate Urine Color Urine Appearance Urine pH Ur Specific [place] Urine Protein Urine Glucose (UA) Urine Ketones Urine Blood Urine Nitrite Urine Bilirubin Urine Urobilinogen Ur Leukocyte Esterase Urine WBC (Auto) Urine RBC (Auto) U Epithel Cells (Auto) Urine Bacteria (Auto) Stool Occult Blood Acetone, Qual B-Hydroxybutyrate 03/20/19 03/20/19 03/20/19 17:32 19:44 21:48 WBC RBC Hgb Hct MCV MCH MCHC RDW Plt Count MPV Absolute Neuts (auto) Total Counted Neutrophils % Neutrophils % (Manual) Band Neutrophils % Lymphocytes % Lymphocytes % (Manual) Monocytes % Monocytes % (Manual) Eosinophils % Eosinophils % (Manual) Basophils % Basophils % (Manual) Myelocytes % (Man) Promyelocytes % (Man) Blast Cells % (Manual) Nucleated RBC % Metamyelocytes Hypochromia Toxic Granulation Platelet Estimate Platelet Comment Polychromasia Poikilocytosis Anisocytosis Microcytosis Macrocytosis Spherocytes Target Cells Tear Drop Cells Ovalocytes [place] Cells Schistocytes PT with INR INR PTT (Actin FS) Fibrinogen Puncture Site ABG pH ABG pCO2 at Pt Temp ABG pO2 at Pt Temp ABG HCO3 ABG O2 Sat (Measured) ABG O2 Content ABG Base Excess Atul Test O2 Delivery Device Oxygen Flow Rate Vent Mode Vent Rate PEEP Pressure Support Vent Sodium Potassium Chloride Carbon Dioxide Anion Gap BUN Creatinine Est GFR (CKD-EPI)AfAm Est GFR (CKD-EPI)NonAf POC Glucometer [phone] Random Glucose Lactic Acid Calcium Phosphorus Magnesium Iron TIBC Iron Saturation Unsaturated IBC Ferritin Total Bilirubin AST ALT Alkaline Phosphatase Creatine Kinase Troponin I Total Protein Albumin Prealbumin Triglycerides Cholesterol Total LDL Cholesterol HDL Cholesterol Beta-Hydroxybutyrate Urine Color Urine Appearance Urine pH Ur Specific [place] Urine Protein Urine Glucose (UA) Urine Ketones Urine Blood Urine Nitrite Urine Bilirubin Urine Urobilinogen Ur Leukocyte Esterase Urine WBC (Auto) Urine RBC (Auto) U Epithel Cells (Auto) Urine Bacteria (Auto) Stool Occult Blood Acetone, Qual B-Hydroxybutyrate 03/20/19 03/21/19 03/21/19 23:26 00:36 01:42 WBC RBC Hgb Hct MCV MCH MCHC RDW Plt Count MPV Absolute Neuts (auto) Total Counted Neutrophils % Neutrophils % (Manual) Band Neutrophils % Lymphocytes % Lymphocytes % (Manual) Monocytes % Monocytes % (Manual) Eosinophils % Eosinophils % (Manual) Basophils % Basophils % (Manual) Myelocytes % (Man) Promyelocytes % (Man) Blast Cells % (Manual) Nucleated RBC % Metamyelocytes Hypochromia Toxic Granulation Platelet Estimate Platelet Comment Polychromasia Poikilocytosis Anisocytosis Microcytosis Macrocytosis Spherocytes Target Cells Tear Drop Cells Ovalocytes [place] Cells Schistocytes PT with INR INR PTT (Actin FS) Fibrinogen Puncture Site ABG pH ABG pCO2 at Pt Temp ABG pO2 at Pt Temp ABG HCO3 ABG O2 Sat (Measured) ABG O2 Content ABG Base Excess Atul Test O2 Delivery Device Oxygen Flow Rate Vent Mode Vent Rate PEEP Pressure Support Vent Sodium Potassium Chloride Carbon Dioxide Anion Gap BUN Creatinine Est GFR (CKD-EPI)AfAm Est GFR (CKD-EPI)NonAf POC Glucometer 88 [phone] Random Glucose Lactic Acid Calcium Phosphorus Magnesium Iron TIBC Iron Saturation Unsaturated IBC Ferritin Total Bilirubin AST ALT Alkaline Phosphatase Creatine Kinase Troponin I Total Protein Albumin Prealbumin Triglycerides Cholesterol Total LDL Cholesterol HDL Cholesterol Beta-Hydroxybutyrate Urine Color Urine Appearance Urine pH Ur Specific [place] Urine Protein Urine Glucose (UA) Urine Ketones Urine Blood Urine Nitrite Urine Bilirubin Urine Urobilinogen Ur Leukocyte Esterase Urine WBC (Auto) Urine RBC (Auto) U Epithel Cells (Auto) Urine Bacteria (Auto) Stool Occult Blood Acetone, Qual B-Hydroxybutyrate 03/21/19 03/21/19 03/21/19 02:46 04:55 05:30 WBC 12.0 H RBC 3.85 Hgb 9.9 L Hct 29.9 L D MCV 77.7 L MCH 25.6 L MCHC 33.0 RDW 21.8 H Plt Count 87 L D MPV 9.6 Absolute Neuts (auto) 9.6 H Total Counted Neutrophils % 79.3 Neutrophils % (Manual) 72.7 Band Neutrophils % 1.0 Lymphocytes % 15.9 D Lymphocytes % (Manual) 19.2 D Monocytes % 2.1 L Monocytes % (Manual) 3 L Eosinophils % 2.4 D Eosinophils % (Manual) 3.1 D Basophils % 0.3 Basophils % (Manual) 0.0 Myelocytes % (Man) 0 D Promyelocytes % (Man) 0 Blast Cells % (Manual) 0 Nucleated RBC % 0 Metamyelocytes 1 D Hypochromia 0 Toxic Granulation Platelet Estimate Decreased Platelet Comment Polychromasia 1+ Poikilocytosis 0 Anisocytosis 1+ Microcytosis 1+ Macrocytosis 0 Spherocytes Target Cells 2+ Tear Drop Cells Ovalocytes 1+ [place] Cells Schistocytes PT with INR INR PTT (Actin FS) Fibrinogen Puncture Site ABG pH ABG pCO2 at Pt Temp ABG pO2 at Pt Temp ABG HCO3 ABG O2 Sat (Measured) ABG O2 Content ABG Base Excess Atul Test O2 Delivery Device Oxygen Flow Rate Vent Mode Vent Rate PEEP Pressure Support Vent Sodium Potassium Chloride Carbon Dioxide Anion Gap BUN Creatinine Est GFR (CKD-EPI)AfAm Est GFR (CKD-EPI)NonAf POC Glucometer 265 225 Random Glucose Lactic Acid Calcium Phosphorus Magnesium Iron TIBC Iron Saturation Unsaturated IBC Ferritin Total Bilirubin AST ALT Alkaline Phosphatase Creatine Kinase Troponin I Total Protein Albumin Prealbumin Triglycerides Cholesterol Total LDL Cholesterol HDL Cholesterol Beta-Hydroxybutyrate Urine Color Urine Appearance Urine pH Ur Specific [place] Urine Protein Urine Glucose (UA) Urine Ketones Urine Blood Urine Nitrite Urine Bilirubin Urine Urobilinogen Ur Leukocyte Esterase Urine WBC (Auto) Urine RBC (Auto) U Epithel Cells (Auto) Urine Bacteria (Auto) Stool Occult Blood Acetone, Qual B-Hydroxybutyrate 03/21/19 03/21/19 03/21/19 05:30 05:30 06:00 WBC RBC Hgb Hct MCV MCH MCHC RDW Plt Count MPV Absolute Neuts (auto) Total Counted Neutrophils % Neutrophils % (Manual) Band Neutrophils % Lymphocytes % Lymphocytes % (Manual) Monocytes % Monocytes % (Manual) Eosinophils % Eosinophils % (Manual) Basophils % Basophils % (Manual) Myelocytes % (Man) Promyelocytes % (Man) Blast Cells % (Manual) Nucleated RBC % Metamyelocytes Hypochromia Toxic Granulation Platelet Estimate Platelet Comment Polychromasia Poikilocytosis Anisocytosis Microcytosis Macrocytosis Spherocytes Target Cells Tear Drop Cells Ovalocytes [place] Cells Schistocytes PT with INR INR PTT (Actin FS) Fibrinogen Puncture Site Left radial ABG pH 7.46 H ABG pCO2 at Pt Temp 44.1 ABG pO2 at Pt Temp 134 H ABG HCO3 30.6 H ABG O2 Sat (Measured) 98.8 H ABG O2 Content 17.0 ABG Base Excess 6.3 H Atul Test Positive O2 Delivery Device Vent Oxygen Flow Rate 40% Vent Mode A/c Vent Rate 14 PEEP 5.0 Pressure Support Vent 400 Sodium 142 Potassium 2.9 L* Chloride 103 Carbon Dioxide 31 Anion Gap 8 BUN 14.5 Creatinine 0.5 L Est GFR (CKD-EPI)AfAm 131.72 Est GFR (CKD-EPI)NonAf 113.65 POC Glucometer Random Glucose 242 H Lactic Acid 3.4 H* Calcium 6.6 L* Phosphorus Magnesium 1.6 L Iron TIBC Iron Saturation Unsaturated IBC Ferritin Total Bilirubin 0.5 AST 22 ALT 10 L Alkaline Phosphatase 332 H Creatine Kinase Troponin I Total Protein 4.2 L Albumin 1.2 L Prealbumin Triglycerides Cholesterol Total LDL Cholesterol HDL Cholesterol Beta-Hydroxybutyrate Urine Color Urine Appearance Urine pH Ur Specific [place] Urine Protein Urine Glucose (UA) Urine Ketones Urine Blood Urine Nitrite Urine Bilirubin Urine Urobilinogen Ur Leukocyte Esterase Urine WBC (Auto) Urine RBC (Auto) U Epithel Cells (Auto) Urine Bacteria (Auto) Stool Occult Blood Acetone, Qual B-Hydroxybutyrate 03/21/19 03/21/19 03/21/19 06:21 07:06 08:46 WBC RBC Hgb Hct MCV MCH MCHC RDW Plt Count MPV Absolute Neuts (auto) Total Counted Neutrophils % Neutrophils % (Manual) Band Neutrophils % Lymphocytes % Lymphocytes % (Manual) Monocytes % Monocytes % (Manual) Eosinophils % Eosinophils % (Manual) Basophils % Basophils % (Manual) Myelocytes % (Man) Promyelocytes % (Man) Blast Cells % (Manual) Nucleated RBC % Metamyelocytes Hypochromia Toxic Granulation Platelet Estimate Platelet Comment Polychromasia Poikilocytosis Anisocytosis Microcytosis Macrocytosis Spherocytes Target Cells Tear Drop Cells Ovalocytes [place] Cells Schistocytes PT with INR INR PTT (Actin FS) Fibrinogen Puncture Site ABG pH ABG pCO2 at Pt Temp ABG pO2 at Pt Temp ABG HCO3 ABG O2 Sat (Measured) ABG O2 Content ABG Base Excess Atul Test O2 Delivery Device Oxygen Flow Rate Vent Mode Vent Rate PEEP Pressure Support Vent Sodium Potassium Chloride Carbon Dioxide Anion Gap BUN Creatinine Est GFR (CKD-EPI)AfAm Est GFR (CKD-EPI)NonAf POC Glucometer [phone] Random Glucose Lactic Acid Calcium Phosphorus Magnesium Iron TIBC Iron Saturation Unsaturated IBC Ferritin Total Bilirubin AST ALT Alkaline Phosphatase Creatine Kinase Troponin I Total Protein Albumin Prealbumin Triglycerides Cholesterol Total LDL Cholesterol HDL Cholesterol Beta-Hydroxybutyrate Urine Color Urine Appearance Urine pH Ur Specific [place] Urine Protein Urine Glucose (UA) Urine Ketones Urine Blood Urine Nitrite Urine Bilirubin Urine Urobilinogen Ur Leukocyte Esterase Urine WBC (Auto) Urine RBC (Auto) U Epithel Cells (Auto) Urine Bacteria (Auto) Stool Occult Blood Acetone, Qual B-Hydroxybutyrate 03/21/19 03/21/19 03/21/19 10:28 12:29 14:44 WBC RBC Hgb Hct MCV MCH MCHC RDW Plt Count MPV Absolute Neuts (auto) Total Counted Neutrophils % Neutrophils % (Manual) Band Neutrophils % Lymphocytes % Lymphocytes % (Manual) Monocytes % Monocytes % (Manual) Eosinophils % Eosinophils % (Manual) Basophils % Basophils % (Manual) Myelocytes % (Man) Promyelocytes % (Man) Blast Cells % (Manual) Nucleated RBC % Metamyelocytes Hypochromia Toxic Granulation Platelet Estimate Platelet Comment Polychromasia Poikilocytosis Anisocytosis Microcytosis Macrocytosis Spherocytes Target Cells Tear Drop Cells Ovalocytes [place] Cells Schistocytes PT with INR INR PTT (Actin FS) Fibrinogen Puncture Site ABG pH ABG pCO2 at Pt Temp ABG pO2 at Pt Temp ABG HCO3 ABG O2 Sat (Measured) ABG O2 Content ABG Base Excess Atul Test O2 Delivery Device Oxygen Flow Rate Vent Mode Vent Rate PEEP Pressure Support Vent Sodium Potassium Chloride Carbon Dioxide Anion Gap BUN Creatinine Est GFR (CKD-EPI)AfAm Est GFR (CKD-EPI)NonAf POC Glucometer [phone] Random Glucose Lactic Acid Calcium Phosphorus Magnesium Iron TIBC Iron Saturation Unsaturated IBC Ferritin Total Bilirubin AST ALT Alkaline Phosphatase Creatine Kinase Troponin I Total Protein Albumin Prealbumin Triglycerides Cholesterol Total LDL Cholesterol HDL Cholesterol Beta-Hydroxybutyrate Urine Color Urine Appearance Urine pH Ur Specific [place] Urine Protein Urine Glucose (UA) Urine Ketones Urine Blood Urine Nitrite Urine Bilirubin Urine Urobilinogen Ur Leukocyte Esterase Urine WBC (Auto) Urine RBC (Auto) U Epithel Cells (Auto) Urine Bacteria (Auto) Stool Occult Blood Acetone, Qual B-Hydroxybutyrate 03/21/19 03/21/19 03/21/19 16:27 18:15 18:25 WBC RBC Hgb Hct MCV MCH MCHC RDW Plt Count MPV Absolute Neuts (auto) Total Counted Neutrophils % Neutrophils % (Manual) Band Neutrophils % Lymphocytes % Lymphocytes % (Manual) Monocytes % Monocytes % (Manual) Eosinophils % Eosinophils % (Manual) Basophils % Basophils % (Manual) Myelocytes % (Man) Promyelocytes % (Man) Blast Cells % (Manual) Nucleated RBC % Metamyelocytes Hypochromia Toxic Granulation Platelet Estimate Platelet Comment Polychromasia Poikilocytosis Anisocytosis Microcytosis Macrocytosis Spherocytes Target Cells Tear Drop Cells Ovalocytes [place] Cells Schistocytes PT with INR INR PTT (Actin FS) Fibrinogen Puncture Site ABG pH ABG pCO2 at Pt Temp ABG pO2 at Pt Temp ABG HCO3 ABG O2 Sat (Measured) ABG O2 Content ABG Base Excess Atul Test O2 Delivery Device Oxygen Flow Rate Vent Mode Vent Rate PEEP Pressure Support Vent Sodium 143 Potassium 3.1 L Chloride 105 Carbon Dioxide 28 Anion Gap 10 BUN 17.0 Creatinine 0.6 Est GFR (CKD-EPI)AfAm 124.05 Est GFR (CKD-EPI)NonAf 107.03 POC Glucometer 257 136 Random Glucose 137 H Lactic Acid Calcium 7.1 L Phosphorus 1.2 L Magnesium 2.2 Iron TIBC Iron Saturation Unsaturated IBC Ferritin Total Bilirubin AST ALT Alkaline Phosphatase Creatine Kinase Troponin I Total Protein Albumin Prealbumin Triglycerides Cholesterol Total LDL Cholesterol HDL Cholesterol Beta-Hydroxybutyrate 1.7 Urine Color Urine Appearance Urine pH Ur Specific [place] Urine Protein Urine Glucose (UA) Urine Ketones Urine Blood Urine Nitrite Urine Bilirubin Urine Urobilinogen Ur Leukocyte Esterase Urine WBC (Auto) Urine RBC (Auto) U Epithel Cells (Auto) Urine Bacteria (Auto) Stool Occult Blood Acetone, Qual B-Hydroxybutyrate 03/21/19 03/21/19 03/22/19 20:20 21:31 00:00 WBC RBC Hgb Hct MCV MCH MCHC RDW Plt Count MPV Absolute Neuts (auto) Total Counted Neutrophils % Neutrophils % (Manual) Band Neutrophils % Lymphocytes % Lymphocytes % (Manual) Monocytes % Monocytes % (Manual) Eosinophils % Eosinophils % (Manual) Basophils % Basophils % (Manual) Myelocytes % (Man) Promyelocytes % (Man) Blast Cells % (Manual) Nucleated RBC % Metamyelocytes Hypochromia Toxic Granulation Platelet Estimate Platelet Comment Polychromasia Poikilocytosis Anisocytosis Microcytosis Macrocytosis Spherocytes Target Cells Tear Drop Cells Ovalocytes [place] Cells Schistocytes PT with INR INR PTT (Actin FS) Fibrinogen Puncture Site ABG pH ABG pCO2 at Pt Temp ABG pO2 at Pt Temp ABG HCO3 ABG O2 Sat (Measured) ABG O2 Content ABG Base Excess Atul Test O2 Delivery Device Oxygen Flow Rate Vent Mode Vent Rate PEEP Pressure Support Vent Sodium Potassium Chloride Carbon Dioxide Anion Gap BUN Creatinine Est GFR (CKD-EPI)AfAm Est GFR (CKD-EPI)NonAf POC Glucometer 93 [phone] Random Glucose Lactic Acid Calcium Phosphorus Magnesium Iron TIBC Iron Saturation Unsaturated IBC Ferritin Total Bilirubin AST ALT Alkaline Phosphatase Creatine Kinase Troponin I Total Protein Albumin Prealbumin Triglycerides Cholesterol Total LDL Cholesterol HDL Cholesterol Beta-Hydroxybutyrate Urine Color Urine Appearance Urine pH Ur Specific [place] Urine Protein Urine Glucose (UA) Urine Ketones Urine Blood Urine Nitrite Urine Bilirubin Urine Urobilinogen Ur Leukocyte Esterase Urine WBC (Auto) Urine RBC (Auto) U Epithel Cells (Auto) Urine Bacteria (Auto) Stool Occult Blood Acetone, Qual B-Hydroxybutyrate 03/22/19 03/22/19 03/22/19 02:29 04:38 05:10 WBC 11.1 H RBC 3.88 Hgb 10.0 L Hct 29.8 L MCV 76.9 L MCH 25.8 MCHC 33.5 RDW 23.0 H Plt Count 95 L MPV 9.4 Absolute Neuts (auto) 8.7 H Total Counted Neutrophils % 78.6 Neutrophils % (Manual) Band Neutrophils % Lymphocytes % 18.0 Lymphocytes % (Manual) Monocytes % 1.4 L Monocytes % (Manual) Eosinophils % 1.7 Eosinophils % (Manual) Basophils % 0.3 Basophils % (Manual) Myelocytes % (Man) Promyelocytes % (Man) Blast Cells % (Manual) Nucleated RBC % 0 Metamyelocytes Hypochromia Toxic Granulation Platelet Estimate Platelet Comment Polychromasia Poikilocytosis Anisocytosis Microcytosis Macrocytosis Spherocytes Target Cells Tear Drop Cells Ovalocytes [place] Cells Schistocytes PT with INR INR PTT (Actin FS) Fibrinogen Puncture Site ABG pH ABG pCO2 at Pt Temp ABG pO2 at Pt Temp ABG HCO3 ABG O2 Sat (Measured) ABG O2 Content ABG Base Excess Atul Test O2 Delivery Device Oxygen Flow Rate Vent Mode Vent Rate PEEP Pressure Support Vent Sodium Potassium Chloride Carbon Dioxide Anion Gap BUN Creatinine Est GFR (CKD-EPI)AfAm Est GFR (CKD-EPI)NonAf POC Glucometer 163 141 Random Glucose Lactic Acid Calcium Phosphorus Magnesium Iron TIBC Iron Saturation Unsaturated IBC Ferritin Total Bilirubin AST ALT Alkaline Phosphatase Creatine Kinase Troponin I Total Protein Albumin Prealbumin Triglycerides Cholesterol Total LDL Cholesterol HDL Cholesterol Beta-Hydroxybutyrate Urine Color Urine Appearance Urine pH Ur Specific [place] Urine Protein Urine Glucose (UA) Urine Ketones Urine Blood Urine Nitrite Urine Bilirubin Urine Urobilinogen Ur Leukocyte Esterase Urine WBC (Auto) Urine RBC (Auto) U Epithel Cells (Auto) Urine Bacteria (Auto) Stool Occult Blood Acetone, Qual B-Hydroxybutyrate 03/22/19 03/22/19 03/22/19 05:10 05:10 07:56 WBC RBC Hgb Hct MCV MCH MCHC RDW Plt Count MPV Absolute Neuts (auto) Total Counted Neutrophils % Neutrophils % (Manual) Band Neutrophils % Lymphocytes % Lymphocytes % (Manual) Monocytes % Monocytes % (Manual) Eosinophils % Eosinophils % (Manual) Basophils % Basophils % (Manual) Myelocytes % (Man) Promyelocytes % (Man) Blast Cells % (Manual) Nucleated RBC % Metamyelocytes Hypochromia Toxic Granulation Platelet Estimate Platelet Comment Polychromasia Poikilocytosis Anisocytosis Microcytosis Macrocytosis Spherocytes Target Cells Tear Drop Cells Ovalocytes [place] Cells Schistocytes PT with INR INR PTT (Actin FS) Fibrinogen Puncture Site ABG pH ABG pCO2 at Pt Temp ABG pO2 at Pt Temp ABG HCO3 ABG O2 Sat (Measured) ABG O2 Content ABG Base Excess Atul Test O2 Delivery Device Oxygen Flow Rate Vent Mode Vent Rate PEEP Pressure Support Vent Sodium 141 Potassium 3.9 Chloride 104 Carbon Dioxide 30 Anion Gap 8 BUN 18.6 H Creatinine 0.5 L Est GFR (CKD-EPI)AfAm 131.72 Est GFR (CKD-EPI)NonAf 113.65 POC Glucometer 195 Random Glucose 156 H Lactic Acid Calcium 6.9 L* Phosphorus Magnesium 2.1 Iron TIBC Iron Saturation Unsaturated IBC Ferritin Total Bilirubin 0.4 AST 20 ALT 11 L Alkaline Phosphatase 285 H Creatine Kinase Troponin I Total Protein 4.4 L Albumin 1.2 L Prealbumin Triglycerides Cholesterol Total LDL Cholesterol HDL Cholesterol Beta-Hydroxybutyrate 0.9 Urine Color Urine Appearance Urine pH Ur Specific [place] Urine Protein Urine Glucose (UA) Urine Ketones Urine Blood Urine Nitrite Urine Bilirubin Urine Urobilinogen Ur Leukocyte Esterase Urine WBC (Auto) Urine RBC (Auto) U Epithel Cells (Auto) Urine Bacteria (Auto) Stool Occult Blood Acetone, Qual B-Hydroxybutyrate 03/22/19 03/22/19 03/22/19 10:49 14:56 17:11 WBC RBC Hgb Hct MCV MCH MCHC RDW Plt Count MPV Absolute Neuts (auto) Total Counted Neutrophils % Neutrophils % (Manual) Band Neutrophils % Lymphocytes % Lymphocytes % (Manual) Monocytes % Monocytes % (Manual) Eosinophils % Eosinophils % (Manual) Basophils % Basophils % (Manual) Myelocytes % (Man) Promyelocytes % (Man) Blast Cells % (Manual) Nucleated RBC % Metamyelocytes Hypochromia Toxic Granulation Platelet Estimate Platelet Comment Polychromasia Poikilocytosis Anisocytosis Microcytosis Macrocytosis Spherocytes Target Cells Tear Drop Cells Ovalocytes [place] Cells Schistocytes PT with INR INR PTT (Actin FS) Fibrinogen Puncture Site ABG pH ABG pCO2 at Pt Temp ABG pO2 at Pt Temp ABG HCO3 ABG O2 Sat (Measured) ABG O2 Content ABG Base Excess Atul Test O2 Delivery Device Oxygen Flow Rate Vent Mode Vent Rate PEEP Pressure Support Vent Sodium Potassium Chloride Carbon Dioxide Anion Gap BUN Creatinine Est GFR (CKD-EPI)AfAm Est GFR (CKD-EPI)NonAf POC Glucometer [phone] Random Glucose Lactic Acid Calcium Phosphorus Magnesium Iron TIBC Iron Saturation Unsaturated IBC Ferritin Total Bilirubin AST ALT Alkaline Phosphatase Creatine Kinase Troponin I Total Protein Albumin Prealbumin Triglycerides Cholesterol Total LDL Cholesterol HDL Cholesterol Beta-Hydroxybutyrate Urine Color Urine Appearance Urine pH Ur Specific [place] Urine Protein Urine Glucose (UA) Urine Ketones Urine Blood Urine Nitrite Urine Bilirubin Urine Urobilinogen Ur Leukocyte Esterase Urine WBC (Auto) Urine RBC (Auto) U Epithel Cells (Auto) Urine Bacteria (Auto) Stool Occult Blood Acetone, Qual B-Hydroxybutyrate 03/22/19 03/23/19 03/23/19 21:34 02:48 03:32 WBC RBC Hgb Hct MCV MCH MCHC RDW Plt Count MPV Absolute Neuts (auto) Total Counted Neutrophils % Neutrophils % (Manual) Band Neutrophils % Lymphocytes % Lymphocytes % (Manual) Monocytes % Monocytes % (Manual) Eosinophils % Eosinophils % (Manual) Basophils % Basophils % (Manual) Myelocytes % (Man) Promyelocytes % (Man) Blast Cells % (Manual) Nucleated RBC % Metamyelocytes Hypochromia Toxic Granulation Platelet Estimate Platelet Comment Polychromasia Poikilocytosis Anisocytosis Microcytosis Macrocytosis Spherocytes Target Cells Tear Drop Cells Ovalocytes [place] Cells Schistocytes PT with INR INR PTT (Actin FS) Fibrinogen Puncture Site ABG pH ABG pCO2 at Pt Temp ABG pO2 at Pt Temp ABG HCO3 ABG O2 Sat (Measured) ABG O2 Content ABG Base Excess Atul Test O2 Delivery Device Oxygen Flow Rate Vent Mode Vent Rate PEEP Pressure Support Vent Sodium Potassium Chloride Carbon Dioxide Anion Gap BUN Creatinine Est GFR (CKD-EPI)AfAm Est GFR (CKD-EPI)NonAf POC Glucometer [phone] Random Glucose Lactic Acid Calcium Phosphorus Magnesium Iron TIBC Iron Saturation Unsaturated IBC Ferritin Total Bilirubin AST ALT Alkaline Phosphatase Creatine Kinase Troponin I Total Protein Albumin Prealbumin Triglycerides Cholesterol Total LDL Cholesterol HDL Cholesterol Beta-Hydroxybutyrate Urine Color Urine Appearance Urine pH Ur Specific [place] Urine Protein Urine Glucose (UA) Urine Ketones Urine Blood Urine Nitrite Urine Bilirubin Urine Urobilinogen Ur Leukocyte Esterase Urine WBC (Auto) Urine RBC (Auto) U Epithel Cells (Auto) Urine Bacteria (Auto) Stool Occult Blood Acetone, Qual B-Hydroxybutyrate 03/23/19 03/23/19 03/23/19 05:10 05:10 05:10 WBC 12.9 H RBC 3.47 L Hgb 8.9 L Hct 27.2 L MCV 78.3 L MCH 25.5 L MCHC 32.6 RDW 22.8 H Plt Count 121 L D MPV 9.0 Absolute Neuts (auto) 9.9 H Total Counted Neutrophils % 77.0 Neutrophils % (Manual) Band Neutrophils % Lymphocytes % 17.9 Lymphocytes % (Manual) Monocytes % 3.3 L D Monocytes % (Manual) Eosinophils % 1.2 Eosinophils % (Manual) Basophils % 0.6 Basophils % (Manual) Myelocytes % (Man) Promyelocytes % (Man) Blast Cells % (Manual) Nucleated RBC % 0 Metamyelocytes Hypochromia Toxic Granulation Platelet Estimate Platelet Comment Polychromasia Poikilocytosis Anisocytosis Microcytosis Macrocytosis Spherocytes Target Cells Tear Drop Cells Ovalocytes [place] Cells Schistocytes PT with INR INR PTT (Actin FS) Fibrinogen Puncture Site ABG pH ABG pCO2 at Pt Temp ABG pO2 at Pt Temp ABG HCO3 ABG O2 Sat (Measured) ABG O2 Content ABG Base Excess Atul Test O2 Delivery Device Oxygen Flow Rate Vent Mode Vent Rate PEEP Pressure Support Vent Sodium 144 Potassium 3.5 Chloride 106 Carbon Dioxide 33 H Anion Gap 5 L BUN 19.3 H Creatinine 0.5 L Est GFR (CKD-EPI)AfAm 131.72 Est GFR (CKD-EPI)NonAf 113.65 POC Glucometer 26 Random Glucose 31 L* Lactic Acid Calcium 7.0 L Phosphorus 2.1 L Magnesium 2.2 Iron TIBC Iron Saturation Unsaturated IBC Ferritin Total Bilirubin 0.2 AST 21 ALT 11 L Alkaline Phosphatase 229 H Creatine Kinase Troponin I Total Protein 4.5 L Albumin 1.2 L Prealbumin Triglycerides Cholesterol Total LDL Cholesterol HDL Cholesterol Beta-Hydroxybutyrate Urine Color Urine Appearance Urine pH Ur Specific [place] Urine Protein Urine Glucose (UA) Urine Ketones Urine Blood Urine Nitrite Urine Bilirubin Urine Urobilinogen Ur Leukocyte Esterase Urine WBC (Auto) Urine RBC (Auto) U Epithel Cells (Auto) Urine Bacteria (Auto) Stool Occult Blood Acetone, Qual B-Hydroxybutyrate 03/23/19 03/23/19 03/23/19 05:45 07:44 09:05 WBC RBC Hgb Hct MCV MCH MCHC RDW Plt Count MPV Absolute Neuts (auto) Total Counted Neutrophils % Neutrophils % (Manual) Band Neutrophils % Lymphocytes % Lymphocytes % (Manual) Monocytes % Monocytes % (Manual) Eosinophils % Eosinophils % (Manual) Basophils % Basophils % (Manual) Myelocytes % (Man) Promyelocytes % (Man) Blast Cells % (Manual) Nucleated RBC % Metamyelocytes Hypochromia Toxic Granulation Platelet Estimate Platelet Comment Polychromasia Poikilocytosis Anisocytosis Microcytosis Macrocytosis Spherocytes Target Cells Tear Drop Cells Ovalocytes [place] Cells Schistocytes PT with INR INR PTT (Actin FS) Fibrinogen Puncture Site ABG pH ABG pCO2 at Pt Temp ABG pO2 at Pt Temp ABG HCO3 ABG O2 Sat (Measured) ABG O2 Content ABG Base Excess Atul Test O2 Delivery Device Oxygen Flow Rate Vent Mode Vent Rate PEEP Pressure Support Vent Sodium Potassium Chloride Carbon Dioxide Anion Gap BUN Creatinine Est GFR (CKD-EPI)AfAm Est GFR (CKD-EPI)NonAf POC Glucometer 84 [phone] Random Glucose Lactic Acid Calcium Phosphorus Magnesium Iron TIBC Iron Saturation Unsaturated IBC Ferritin Total Bilirubin AST ALT Alkaline Phosphatase Creatine Kinase Troponin I Total Protein Albumin Prealbumin Triglycerides Cholesterol Total LDL Cholesterol HDL Cholesterol Beta-Hydroxybutyrate Urine Color Urine Appearance Urine pH Ur Specific [place] Urine Protein Urine Glucose (UA) Urine Ketones Urine Blood Urine Nitrite Urine Bilirubin Urine Urobilinogen Ur Leukocyte Esterase Urine WBC (Auto) Urine RBC (Auto) U Epithel Cells (Auto) Urine Bacteria (Auto) Stool Occult Blood Acetone, Qual B-Hydroxybutyrate 03/23/19 03/23/19 03/23/19 11:25 13:44 16:30 WBC RBC Hgb Hct MCV MCH MCHC RDW Plt Count MPV Absolute Neuts (auto) Total Counted Neutrophils % Neutrophils % (Manual) Band Neutrophils % Lymphocytes % Lymphocytes % (Manual) Monocytes % Monocytes % (Manual) Eosinophils % Eosinophils % (Manual) Basophils % Basophils % (Manual) Myelocytes % (Man) Promyelocytes % (Man) Blast Cells % (Manual) Nucleated RBC % Metamyelocytes Hypochromia Toxic Granulation Platelet Estimate Platelet Comment Polychromasia Poikilocytosis Anisocytosis Microcytosis Macrocytosis Spherocytes Target Cells Tear Drop Cells Ovalocytes [place] Cells Schistocytes PT with INR INR PTT (Actin FS) Fibrinogen Puncture Site ABG pH ABG pCO2 at Pt Temp ABG pO2 at Pt Temp ABG HCO3 ABG O2 Sat (Measured) ABG O2 Content ABG Base Excess Atul Test O2 Delivery Device Oxygen Flow Rate Vent Mode Vent Rate PEEP Pressure Support Vent Sodium Potassium Chloride Carbon Dioxide Anion Gap BUN Creatinine Est GFR (CKD-EPI)AfAm Est GFR (CKD-EPI)NonAf POC Glucometer [phone] Random Glucose Lactic Acid Calcium Phosphorus Magnesium Iron TIBC Iron Saturation Unsaturated IBC Ferritin Total Bilirubin AST ALT Alkaline Phosphatase Creatine Kinase Troponin I Total Protein Albumin Prealbumin Triglycerides Cholesterol Total LDL Cholesterol HDL Cholesterol Beta-Hydroxybutyrate Urine Color Urine Appearance Urine pH Ur Specific [place] Urine Protein Urine Glucose (UA) Urine Ketones Urine Blood Urine Nitrite Urine Bilirubin Urine Urobilinogen Ur Leukocyte Esterase Urine WBC (Auto) Urine RBC (Auto) U Epithel Cells (Auto) Urine Bacteria (Auto) Stool Occult Blood Acetone, Qual B-Hydroxybutyrate 03/23/19 03/24/19 03/24/19 21:56 01:44 05:40 WBC 7.9 RBC 3.06 L Hgb 7.9 L Hct 24.2 L MCV 78.9 L MCH 25.9 MCHC 32.9 RDW 23.2 H Plt Count 95 L D MPV 8.1 Absolute Neuts (auto) 5.6 Total Counted Neutrophils % 71.4 Neutrophils % (Manual) Band Neutrophils % Lymphocytes % 20.4 Lymphocytes % (Manual) Monocytes % 4.3 Monocytes % (Manual) Eosinophils % 3.0 D Eosinophils % (Manual) Basophils % 0.9 Basophils % (Manual) Myelocytes % (Man) Promyelocytes % (Man) Blast Cells % (Manual) Nucleated RBC % 0 Metamyelocytes Hypochromia 0 Toxic Granulation Platelet Estimate Decreased Platelet Comment Polychromasia 1+ Poikilocytosis 0 Anisocytosis 1+ Microcytosis 1+ Macrocytosis 1+ Spherocytes Target Cells 2+ Tear Drop Cells Ovalocytes 1+ [place] Cells Schistocytes PT with INR INR PTT (Actin FS) Fibrinogen Puncture Site ABG pH ABG pCO2 at Pt Temp ABG pO2 at Pt Temp ABG HCO3 ABG O2 Sat (Measured) ABG O2 Content ABG Base Excess Atul Test O2 Delivery Device Oxygen Flow Rate Vent Mode Vent Rate PEEP Pressure Support Vent Sodium Potassium Chloride Carbon Dioxide Anion Gap BUN Creatinine Est GFR (CKD-EPI)AfAm Est GFR (CKD-EPI)NonAf POC Glucometer 255 120 Random Glucose Lactic Acid Calcium Phosphorus Magnesium Iron TIBC Iron Saturation Unsaturated IBC Ferritin Total Bilirubin AST ALT Alkaline Phosphatase Creatine Kinase Troponin I Total Protein Albumin Prealbumin Triglycerides Cholesterol Total LDL Cholesterol HDL Cholesterol Beta-Hydroxybutyrate Urine Color Urine Appearance Urine pH Ur Specific [place] Urine Protein Urine Glucose (UA) Urine Ketones Urine Blood Urine Nitrite Urine Bilirubin Urine Urobilinogen Ur Leukocyte Esterase Urine WBC (Auto) Urine RBC (Auto) U Epithel Cells (Auto) Urine Bacteria (Auto) Stool Occult Blood Acetone, Qual B-Hydroxybutyrate 03/24/19 03/24/19 03/24/19 05:40 06:03 11:56 WBC RBC Hgb Hct MCV MCH MCHC RDW Plt Count MPV Absolute Neuts (auto) Total Counted Neutrophils % Neutrophils % (Manual) Band Neutrophils % Lymphocytes % Lymphocytes % (Manual) Monocytes % Monocytes % (Manual) Eosinophils % Eosinophils % (Manual) Basophils % Basophils % (Manual) Myelocytes % (Man) Promyelocytes % (Man) Blast Cells % (Manual) Nucleated RBC % Metamyelocytes Hypochromia Toxic Granulation Platelet Estimate Platelet Comment Polychromasia Poikilocytosis Anisocytosis Microcytosis Macrocytosis Spherocytes Target Cells Tear Drop Cells Ovalocytes [place] Cells Schistocytes PT with INR INR PTT (Actin FS) Fibrinogen Puncture Site ABG pH ABG pCO2 at Pt Temp ABG pO2 at Pt Temp ABG HCO3 ABG O2 Sat (Measured) ABG O2 Content ABG Base Excess Atul Test O2 Delivery Device Oxygen Flow Rate Vent Mode Vent Rate PEEP Pressure Support Vent Sodium 141 Potassium 3.8 Chloride 104 Carbon Dioxide 31 Anion Gap 6 L BUN 14.5 Creatinine 0.4 L Est GFR (CKD-EPI)AfAm 141.75 Est GFR (CKD-EPI)NonAf 122.30 POC Glucometer 198 306 Random Glucose 207 H Lactic Acid Calcium 6.8 L* Phosphorus 2.0 L Magnesium 1.7 L Iron TIBC Iron Saturation Unsaturated IBC Ferritin Total Bilirubin 0.4 AST 14 L ALT 7 L Alkaline Phosphatase 170 H Creatine Kinase Troponin I Total Protein 3.9 L Albumin 1.1 L Prealbumin Triglycerides Cholesterol Total LDL Cholesterol HDL Cholesterol Beta-Hydroxybutyrate Urine Color Urine Appearance Urine pH Ur Specific [place] Urine Protein Urine Glucose (UA) Urine Ketones Urine Blood Urine Nitrite Urine Bilirubin Urine Urobilinogen Ur Leukocyte Esterase Urine WBC (Auto) Urine RBC (Auto) U Epithel Cells (Auto) Urine Bacteria (Auto) Stool Occult Blood Acetone, Qual B-Hydroxybutyrate 03/24/19 03/24/19 03/25/19 17:45 21:40 03:08 WBC RBC Hgb Hct MCV MCH MCHC RDW Plt Count MPV Absolute Neuts (auto) Total Counted Neutrophils % Neutrophils % (Manual) Band Neutrophils % Lymphocytes % Lymphocytes % (Manual) Monocytes % Monocytes % (Manual) Eosinophils % Eosinophils % (Manual) Basophils % Basophils % (Manual) Myelocytes % (Man) Promyelocytes % (Man) Blast Cells % (Manual) Nucleated RBC % Metamyelocytes Hypochromia Toxic Granulation Platelet Estimate Platelet Comment Polychromasia Poikilocytosis Anisocytosis Microcytosis Macrocytosis Spherocytes Target Cells Tear Drop Cells Ovalocytes [place] Cells Schistocytes PT with INR INR PTT (Actin FS) Fibrinogen Puncture Site ABG pH ABG pCO2 at Pt Temp ABG pO2 at Pt Temp ABG HCO3 ABG O2 Sat (Measured) ABG O2 Content ABG Base Excess Atul Test O2 Delivery Device Oxygen Flow Rate Vent Mode Vent Rate PEEP Pressure Support Vent Sodium Potassium Chloride Carbon Dioxide Anion Gap BUN Creatinine Est GFR (CKD-EPI)AfAm Est GFR (CKD-EPI)NonAf POC Glucometer [phone] Random Glucose Lactic Acid Calcium Phosphorus Magnesium Iron TIBC Iron Saturation Unsaturated IBC Ferritin Total Bilirubin AST ALT Alkaline Phosphatase Creatine Kinase Troponin I Total Protein Albumin Prealbumin Triglycerides Cholesterol Total LDL Cholesterol HDL Cholesterol Beta-Hydroxybutyrate Urine Color Urine Appearance Urine pH Ur Specific [place] Urine Protein Urine Glucose (UA) Urine Ketones Urine Blood Urine Nitrite Urine Bilirubin Urine Urobilinogen Ur Leukocyte Esterase Urine WBC (Auto) Urine RBC (Auto) U Epithel Cells (Auto) Urine Bacteria (Auto) Stool Occult Blood Acetone, Qual B-Hydroxybutyrate 03/25/19 03/25/19 03/25/19 05:30 05:30 05:32 WBC 8.6 RBC 3.42 L Hgb 8.9 L Hct 27.2 L MCV 79.4 L MCH 26.1 MCHC 32.8 RDW 23.7 H Plt Count 179 D MPV 8.2 Absolute Neuts (auto) 5.8 Total Counted Neutrophils % 67.7 Neutrophils % (Manual) Band Neutrophils % Lymphocytes % 23.2 Lymphocytes % (Manual) Monocytes % 6.0 Monocytes % (Manual) Eosinophils % 2.2 Eosinophils % (Manual) Basophils % 0.9 Basophils % (Manual) Myelocytes % (Man) Promyelocytes % (Man) Blast Cells % (Manual) Nucleated RBC % 0 Metamyelocytes Hypochromia Toxic Granulation Platelet Estimate Platelet Comment Polychromasia Poikilocytosis Anisocytosis Microcytosis Macrocytosis Spherocytes Target Cells Tear Drop Cells Ovalocytes [place] Cells Schistocytes PT with INR INR PTT (Actin FS) Fibrinogen Puncture Site ABG pH ABG pCO2 at Pt Temp ABG pO2 at Pt Temp ABG HCO3 ABG O2 Sat (Measured) ABG O2 Content ABG Base Excess Atul Test O2 Delivery Device Oxygen Flow Rate Vent Mode Vent Rate PEEP Pressure Support Vent Sodium 142 Potassium 3.5 Chloride 104 Carbon Dioxide 31 Anion Gap 7 L BUN 16.2 Creatinine 0.4 L Est GFR (CKD-EPI)AfAm 141.75 Est GFR (CKD-EPI)NonAf 122.30 POC Glucometer 118 Random Glucose 120 H Lactic Acid Calcium 7.2 L Phosphorus 2.0 L Magnesium 1.9 Iron TIBC Iron Saturation Unsaturated IBC Ferritin Total Bilirubin 0.2 AST 16 ALT 10 L Alkaline Phosphatase 184 H Creatine Kinase Troponin I Total Protein 4.6 L Albumin 1.2 L Prealbumin Triglycerides Cholesterol Total LDL Cholesterol HDL Cholesterol Beta-Hydroxybutyrate Urine Color Urine Appearance Urine pH Ur Specific [place] Urine Protein Urine Glucose (UA) Urine Ketones Urine Blood Urine Nitrite Urine Bilirubin Urine Urobilinogen Ur Leukocyte Esterase Urine WBC (Auto) Urine RBC (Auto) U Epithel Cells (Auto) Urine Bacteria (Auto) Stool Occult Blood Acetone, Qual B-Hydroxybutyrate 03/25/19 03/25/19 03/25/19 10:53 12:55 14:23 WBC RBC Hgb Hct MCV MCH MCHC RDW Plt Count MPV Absolute Neuts (auto) Total Counted Neutrophils % Neutrophils % (Manual) Band Neutrophils % Lymphocytes % Lymphocytes % (Manual) Monocytes % Monocytes % (Manual) Eosinophils % Eosinophils % (Manual) Basophils % Basophils % (Manual) Myelocytes % (Man) Promyelocytes % (Man) Blast Cells % (Manual) Nucleated RBC % Metamyelocytes Hypochromia Toxic Granulation Platelet Estimate Platelet Comment Polychromasia Poikilocytosis Anisocytosis Microcytosis Macrocytosis Spherocytes Target Cells Tear Drop Cells Ovalocytes [place] Cells Schistocytes PT with INR INR PTT (Actin FS) Fibrinogen Puncture Site ABG pH ABG pCO2 at Pt Temp ABG pO2 at Pt Temp ABG HCO3 ABG O2 Sat (Measured) ABG O2 Content ABG Base Excess Atul Test O2 Delivery Device Oxygen Flow Rate Vent Mode Vent Rate PEEP Pressure Support Vent Sodium 137 Potassium 3.7 Chloride 101 Carbon Dioxide 27 Anion Gap 9 BUN 19.9 H Creatinine 0.6 Est GFR (CKD-EPI)AfAm 124.05 Est GFR (CKD-EPI)NonAf 107.03 POC Glucometer 401 186 Random Glucose 312 H Lactic Acid Calcium 7.3 L Phosphorus Magnesium Iron TIBC Iron Saturation Unsaturated IBC Ferritin Total Bilirubin 0.3 AST 18 ALT 12 L Alkaline Phosphatase 216 H Creatine Kinase Troponin I Total Protein 5.2 L Albumin 1.4 L Prealbumin Triglycerides Cholesterol Total LDL Cholesterol HDL Cholesterol Beta-Hydroxybutyrate Urine Color Urine Appearance Urine pH Ur Specific [place] Urine Protein Urine Glucose (UA) Urine Ketones Urine Blood Urine Nitrite Urine Bilirubin Urine Urobilinogen Ur Leukocyte Esterase Urine WBC (Auto) Urine RBC (Auto) U Epithel Cells (Auto) Urine Bacteria (Auto) Stool Occult Blood Acetone, Qual B-Hydroxybutyrate 03/25/19 03/25/19 03/26/19 16:10 20:48 01:48 WBC RBC Hgb Hct MCV MCH MCHC RDW Plt Count MPV Absolute Neuts (auto) Total Counted Neutrophils % Neutrophils % (Manual) Band Neutrophils % Lymphocytes % Lymphocytes % (Manual) Monocytes % Monocytes % (Manual) Eosinophils % Eosinophils % (Manual) Basophils % Basophils % (Manual) Myelocytes % (Man) Promyelocytes % (Man) Blast Cells % (Manual) Nucleated RBC % Metamyelocytes Hypochromia Toxic Granulation Platelet Estimate Platelet Comment Polychromasia Poikilocytosis Anisocytosis Microcytosis Macrocytosis Spherocytes Target Cells Tear Drop Cells Ovalocytes [place] Cells Schistocytes PT with INR INR PTT (Actin FS) Fibrinogen Puncture Site ABG pH ABG pCO2 at Pt Temp ABG pO2 at Pt Temp ABG HCO3 ABG O2 Sat (Measured) ABG O2 Content ABG Base Excess Atul Test O2 Delivery Device Oxygen Flow Rate Vent Mode Vent Rate PEEP Pressure Support Vent Sodium Potassium Chloride Carbon Dioxide Anion Gap BUN Creatinine Est GFR (CKD-EPI)AfAm Est GFR (CKD-EPI)NonAf POC Glucometer [phone] Random Glucose Lactic Acid Calcium Phosphorus Magnesium Iron TIBC Iron Saturation Unsaturated IBC Ferritin Total Bilirubin AST ALT Alkaline Phosphatase Creatine Kinase Troponin I Total Protein Albumin Prealbumin Triglycerides Cholesterol Total LDL Cholesterol HDL Cholesterol Beta-Hydroxybutyrate Urine Color Urine Appearance Urine pH Ur Specific [place] Urine Protein Urine Glucose (UA) Urine Ketones Urine Blood Urine Nitrite Urine Bilirubin Urine Urobilinogen Ur Leukocyte Esterase Urine WBC (Auto) Urine RBC (Auto) U Epithel Cells (Auto) Urine Bacteria (Auto) Stool Occult Blood Acetone, Qual B-Hydroxybutyrate 03/26/19 03/26/19 03/26/19 05:06 06:00 06:00 WBC RBC Hgb Hct MCV MCH MCHC RDW Plt Count MPV Absolute Neuts (auto) Total Counted Neutrophils % Neutrophils % (Manual) Band Neutrophils % Lymphocytes % Lymphocytes % (Manual) Monocytes % Monocytes % (Manual) Eosinophils % Eosinophils % (Manual) Basophils % Basophils % (Manual) Myelocytes % (Man) Promyelocytes % (Man) Blast Cells % (Manual) Nucleated RBC % Metamyelocytes Hypochromia Toxic Granulation Platelet Estimate Platelet Comment Polychromasia Poikilocytosis Anisocytosis Microcytosis Macrocytosis Spherocytes Target Cells Tear Drop Cells Ovalocytes [place] Cells Schistocytes PT with INR 11.20 INR 0.95 PTT (Actin FS) 29.7 Fibrinogen Puncture Site ABG pH ABG pCO2 at Pt Temp ABG pO2 at Pt Temp ABG HCO3 ABG O2 Sat (Measured) ABG O2 Content ABG Base Excess Atul Test O2 Delivery Device Oxygen Flow Rate Vent Mode Vent Rate PEEP Pressure Support Vent Sodium 139 Potassium 3.8 Chloride 102 Carbon Dioxide 32 Anion Gap 5 L BUN 14.5 Creatinine 0.3 L Est GFR (CKD-EPI)AfAm 155.82 Est GFR (CKD-EPI)NonAf 134.44 POC Glucometer 153 Random Glucose 151 H Lactic Acid Calcium 7.1 L Phosphorus Magnesium Iron TIBC Iron Saturation Unsaturated IBC Ferritin Total Bilirubin 0.2 AST 15 ALT 9 L Alkaline Phosphatase 155 H Creatine Kinase Troponin I Total Protein 4.3 L Albumin 1.2 L Prealbumin Triglycerides Cholesterol Total LDL Cholesterol HDL Cholesterol Beta-Hydroxybutyrate Urine Color Urine Appearance Urine pH Ur Specific [place] Urine Protein Urine Glucose (UA) Urine Ketones Urine Blood Urine Nitrite Urine Bilirubin Urine Urobilinogen Ur Leukocyte Esterase Urine WBC (Auto) Urine RBC (Auto) U Epithel Cells (Auto) Urine Bacteria (Auto) Stool Occult Blood Acetone, Qual B-Hydroxybutyrate 03/26/19 03/26/19 03/26/19 06:00 06:00 10:53 WBC 8.5 RBC 2.92 L Hgb 7.6 L Hct 23.5 L MCV 80.5 MCH 26.1 MCHC 32.4 RDW 23.5 H Plt Count 231 D MPV 8.1 Absolute Neuts (auto) 5.4 Total Counted Neutrophils % 63.6 Neutrophils % (Manual) Band Neutrophils % Lymphocytes % 24.4 Lymphocytes % (Manual) Monocytes % 7.8 Monocytes % (Manual) Eosinophils % 3.2 Eosinophils % (Manual) Basophils % 1.0 Basophils % (Manual) Myelocytes % (Man) Promyelocytes % (Man) Blast Cells % (Manual) Nucleated RBC % 0 Metamyelocytes Hypochromia Toxic Granulation Platelet Estimate Platelet Comment Polychromasia Poikilocytosis Anisocytosis Microcytosis Macrocytosis Spherocytes Target Cells Tear Drop Cells Ovalocytes [place] Cells Schistocytes PT with INR INR PTT (Actin FS) Fibrinogen Puncture Site ABG pH ABG pCO2 at Pt Temp ABG pO2 at Pt Temp ABG HCO3 ABG O2 Sat (Measured) ABG O2 Content ABG Base Excess Atul Test O2 Delivery Device Oxygen Flow Rate Vent Mode Vent Rate PEEP Pressure Support Vent Sodium Potassium Chloride Carbon Dioxide Anion Gap BUN Creatinine Est GFR (CKD-EPI)AfAm Est GFR (CKD-EPI)NonAf POC Glucometer 356 Random Glucose Lactic Acid 2.4 H* Calcium Phosphorus Magnesium Iron TIBC Iron Saturation Unsaturated IBC Ferritin Total Bilirubin AST ALT Alkaline Phosphatase Creatine Kinase Troponin I Total Protein Albumin Prealbumin Triglycerides Cholesterol Total LDL Cholesterol HDL Cholesterol Beta-Hydroxybutyrate Urine Color Urine Appearance Urine pH Ur Specific [place] Urine Protein Urine Glucose (UA) Urine Ketones Urine Blood Urine Nitrite Urine Bilirubin Urine Urobilinogen Ur Leukocyte Esterase Urine WBC (Auto) Urine RBC (Auto) U Epithel Cells (Auto) Urine Bacteria (Auto) Stool Occult Blood Acetone, Qual B-Hydroxybutyrate 03/26/19 03/26/19 03/26/19 13:52 18:35 20:40 WBC 8.7 RBC 3.44 L Hgb 9.2 L Hct 28.1 L D MCV 81.7 MCH 26.7 MCHC 32.6 RDW 22.3 H Plt Count 262 MPV 8.1 Absolute Neuts (auto) 5.7 Total Counted Neutrophils % 65.2 Neutrophils % (Manual) Band Neutrophils % Lymphocytes % 20.6 Lymphocytes % (Manual) Monocytes % 9.8 Monocytes % (Manual) Eosinophils % 2.6 Eosinophils % (Manual) Basophils % 1.8 Basophils % (Manual) Myelocytes % (Man) Promyelocytes % (Man) Blast Cells % (Manual) Nucleated RBC % 0 Metamyelocytes Hypochromia Toxic Granulation Platelet Estimate Platelet Comment Polychromasia Poikilocytosis Anisocytosis Microcytosis Macrocytosis Spherocytes Target Cells Tear Drop Cells Ovalocytes [place] Cells Schistocytes PT with INR INR PTT (Actin FS) Fibrinogen Puncture Site ABG pH ABG pCO2 at Pt Temp ABG pO2 at Pt Temp ABG HCO3 ABG O2 Sat (Measured) ABG O2 Content ABG Base Excess Atul Test O2 Delivery Device Oxygen Flow Rate Vent Mode Vent Rate PEEP Pressure Support Vent Sodium Potassium Chloride Carbon Dioxide Anion Gap BUN Creatinine Est GFR (CKD-EPI)AfAm Est GFR (CKD-EPI)NonAf POC Glucometer 347 239 Random Glucose Lactic Acid Calcium Phosphorus Magnesium Iron TIBC Iron Saturation Unsaturated IBC Ferritin Total Bilirubin AST ALT Alkaline Phosphatase Creatine Kinase Troponin I Total Protein Albumin Prealbumin Triglycerides Cholesterol Total LDL Cholesterol HDL Cholesterol Beta-Hydroxybutyrate Urine Color Urine Appearance Urine pH Ur Specific [place] Urine Protein Urine Glucose (UA) Urine Ketones Urine Blood Urine Nitrite Urine Bilirubin Urine Urobilinogen Ur Leukocyte Esterase Urine WBC (Auto) Urine RBC (Auto) U Epithel Cells (Auto) Urine Bacteria (Auto) Stool Occult Blood Acetone, Qual B-Hydroxybutyrate 03/26/19 03/27/19 03/27/19 22:42 02:18 06:00 WBC 7.1 RBC 3.22 L Hgb 8.8 L Hct 26.3 L MCV 81.6 MCH 27.2 MCHC 33.3 RDW 22.2 H Plt Count 269 MPV 7.8 Absolute Neuts (auto) 4.3 Total Counted Neutrophils % 60.6 Neutrophils % (Manual) Band Neutrophils % Lymphocytes % 22.8 Lymphocytes % (Manual) Monocytes % 12.0 H Monocytes % (Manual) Eosinophils % 3.9 Eosinophils % (Manual) Basophils % 0.7 Basophils % (Manual) Myelocytes % (Man) Promyelocytes % (Man) Blast Cells % (Manual) Nucleated RBC % 0 Metamyelocytes Hypochromia Toxic Granulation Platelet Estimate Adequate Platelet Comment Giant platelets Polychromasia Poikilocytosis 1+ Anisocytosis 2+ Microcytosis 1+ Macrocytosis Spherocytes 1+ Target Cells 1+ Tear Drop Cells 1+ Ovalocytes [place] Cells Schistocytes PT with INR INR PTT (Actin FS) Fibrinogen Puncture Site ABG pH ABG pCO2 at Pt Temp ABG pO2 at Pt Temp ABG HCO3 ABG O2 Sat (Measured) ABG O2 Content ABG Base Excess Atul Test O2 Delivery Device Oxygen Flow Rate Vent Mode Vent Rate PEEP Pressure Support Vent Sodium Potassium Chloride Carbon Dioxide Anion Gap BUN Creatinine Est GFR (CKD-EPI)AfAm Est GFR (CKD-EPI)NonAf POC Glucometer 122 173 Random Glucose Lactic Acid Calcium Phosphorus Magnesium Iron TIBC Iron Saturation Unsaturated IBC Ferritin Total Bilirubin AST ALT Alkaline Phosphatase Creatine Kinase Troponin I Total Protein Albumin Prealbumin Triglycerides Cholesterol Total LDL Cholesterol HDL Cholesterol Beta-Hydroxybutyrate Urine Color Urine Appearance Urine pH Ur Specific [place] Urine Protein Urine Glucose (UA) Urine Ketones Urine Blood Urine Nitrite Urine Bilirubin Urine Urobilinogen Ur Leukocyte Esterase Urine WBC (Auto) Urine RBC (Auto) U Epithel Cells (Auto) Urine Bacteria (Auto) Stool Occult Blood Acetone, Qual B-Hydroxybutyrate 03/27/19 03/27/19 03/27/19 06:00 06:43 11:10 WBC RBC Hgb Hct MCV MCH MCHC RDW Plt Count MPV Absolute Neuts (auto) Total Counted Neutrophils % Neutrophils % (Manual) Band Neutrophils % Lymphocytes % Lymphocytes % (Manual) Monocytes % Monocytes % (Manual) Eosinophils % Eosinophils % (Manual) Basophils % Basophils % (Manual) Myelocytes % (Man) Promyelocytes % (Man) Blast Cells % (Manual) Nucleated RBC % Metamyelocytes Hypochromia Toxic Granulation Platelet Estimate Platelet Comment Polychromasia Poikilocytosis Anisocytosis Microcytosis Macrocytosis Spherocytes Target Cells Tear Drop Cells Ovalocytes [place] Cells Schistocytes PT with INR INR PTT (Actin FS) Fibrinogen Puncture Site ABG pH ABG pCO2 at Pt Temp ABG pO2 at Pt Temp ABG HCO3 ABG O2 Sat (Measured) ABG O2 Content ABG Base Excess Atul Test O2 Delivery Device Oxygen Flow Rate Vent Mode Vent Rate PEEP Pressure Support Vent Sodium 139 Potassium 3.8 Chloride 102 Carbon Dioxide 31 Anion Gap 5 L BUN 16.5 Creatinine 0.3 L Est GFR (CKD-EPI)AfAm 155.82 Est GFR (CKD-EPI)NonAf 134.44 POC Glucometer 311 254 Random Glucose 260 H Lactic Acid Calcium 7.3 L Phosphorus 1.2 L Magnesium 1.8 Iron TIBC Iron Saturation Unsaturated IBC Ferritin Total Bilirubin 0.2 AST 19 ALT 10 L Alkaline Phosphatase 157 H Creatine Kinase Troponin I Total Protein 4.5 L Albumin 1.2 L Prealbumin Triglycerides Cholesterol Total LDL Cholesterol HDL Cholesterol Beta-Hydroxybutyrate Urine Color Urine Appearance Urine pH Ur Specific [place] Urine Protein Urine Glucose (UA) Urine Ketones Urine Blood Urine Nitrite Urine Bilirubin Urine Urobilinogen Ur Leukocyte Esterase Urine WBC (Auto) Urine RBC (Auto) U Epithel Cells (Auto) Urine Bacteria (Auto) Stool Occult Blood Acetone, Qual B-Hydroxybutyrate 03/27/19 03/27/19 03/27/19 14:16 18:17 21:18 WBC RBC Hgb Hct MCV MCH MCHC RDW Plt Count MPV Absolute Neuts (auto) Total Counted Neutrophils % Neutrophils % (Manual) Band Neutrophils % Lymphocytes % Lymphocytes % (Manual) Monocytes % Monocytes % (Manual) Eosinophils % Eosinophils % (Manual) Basophils % Basophils % (Manual) Myelocytes % (Man) Promyelocytes % (Man) Blast Cells % (Manual) Nucleated RBC % Metamyelocytes Hypochromia Toxic Granulation Platelet Estimate Platelet Comment Polychromasia Poikilocytosis Anisocytosis Microcytosis Macrocytosis Spherocytes Target Cells Tear Drop Cells Ovalocytes [place] Cells Schistocytes PT with INR INR PTT (Actin FS) Fibrinogen Puncture Site ABG pH ABG pCO2 at Pt Temp ABG pO2 at Pt Temp ABG HCO3 ABG O2 Sat (Measured) ABG O2 Content ABG Base Excess Atul Test O2 Delivery Device Oxygen Flow Rate Vent Mode Vent Rate PEEP Pressure Support Vent Sodium Potassium Chloride Carbon Dioxide Anion Gap BUN Creatinine Est GFR (CKD-EPI)AfAm Est GFR (CKD-EPI)NonAf POC Glucometer [phone] Random Glucose Lactic Acid Calcium Phosphorus Magnesium Iron TIBC Iron Saturation Unsaturated IBC Ferritin Total Bilirubin AST ALT Alkaline Phosphatase Creatine Kinase Troponin I Total Protein Albumin Prealbumin Triglycerides Cholesterol Total LDL Cholesterol HDL Cholesterol Beta-Hydroxybutyrate Urine Color Urine Appearance Urine pH Ur Specific [place] Urine Protein Urine Glucose (UA) Urine Ketones Urine Blood Urine Nitrite Urine Bilirubin Urine Urobilinogen Ur Leukocyte Esterase Urine WBC (Auto) Urine RBC (Auto) U Epithel Cells (Auto) Urine Bacteria (Auto) Stool Occult Blood Acetone, Qual B-Hydroxybutyrate 03/28/19 03/28/19 03/28/19 03:32 05:50 05:50 WBC 7.5 RBC 3.28 L Hgb 8.8 L Hct 27.3 L MCV 83.1 MCH 26.9 MCHC 32.4 RDW 22.9 H Plt Count 409 D MPV 7.8 Absolute Neuts (auto) 4.1 Total Counted Neutrophils % 54.9 Neutrophils % (Manual) Band Neutrophils % Lymphocytes % 26.7 Lymphocytes % (Manual) Monocytes % 13.0 H Monocytes % (Manual) Eosinophils % 3.9 Eosinophils % (Manual) Basophils % 1.5 Basophils % (Manual) Myelocytes % (Man) Promyelocytes % (Man) Blast Cells % (Manual) Nucleated RBC % 0 Metamyelocytes Hypochromia Toxic Granulation Platelet Estimate Platelet Comment Polychromasia Poikilocytosis Anisocytosis Microcytosis Macrocytosis Spherocytes Target Cells Tear Drop Cells Ovalocytes [place] Cells Schistocytes PT with INR INR PTT (Actin FS) Fibrinogen Puncture Site ABG pH ABG pCO2 at Pt Temp ABG pO2 at Pt Temp ABG HCO3 ABG O2 Sat (Measured) ABG O2 Content ABG Base Excess Atul Test O2 Delivery Device Oxygen Flow Rate Vent Mode Vent Rate PEEP Pressure Support Vent Sodium 141 Potassium 3.8 Chloride 102 Carbon Dioxide 33 H Anion Gap 6 L BUN 13.4 Creatinine 0.4 L Est GFR (CKD-EPI)AfAm 141.75 Est GFR (CKD-EPI)NonAf 122.30 POC Glucometer 218 Random Glucose 251 H Lactic Acid Calcium 7.6 L Phosphorus 1.9 L Magnesium 2.0 Iron TIBC Iron Saturation Unsaturated IBC Ferritin Total Bilirubin 0.2 AST 25 ALT 13 Alkaline Phosphatase 163 H Creatine Kinase Troponin I Total Protein 4.9 L Albumin 1.4 L Prealbumin Triglycerides Cholesterol Total LDL Cholesterol HDL Cholesterol Beta-Hydroxybutyrate Urine Color Urine Appearance Urine pH Ur Specific [place] Urine Protein Urine Glucose (UA) Urine Ketones Urine Blood Urine Nitrite Urine Bilirubin Urine Urobilinogen Ur Leukocyte Esterase Urine WBC (Auto) Urine RBC (Auto) U Epithel Cells (Auto) Urine Bacteria (Auto) Stool Occult Blood Acetone, Qual B-Hydroxybutyrate 03/28/19 03/28/19 03/28/19 06:22 10:07 10:59 WBC RBC Hgb Hct MCV MCH MCHC RDW Plt Count MPV Absolute Neuts (auto) Total Counted Neutrophils % Neutrophils % (Manual) Band Neutrophils % Lymphocytes % Lymphocytes % (Manual) Monocytes % Monocytes % (Manual) Eosinophils % Eosinophils % (Manual) Basophils % Basophils % (Manual) Myelocytes % (Man) Promyelocytes % (Man) Blast Cells % (Manual) Nucleated RBC % Metamyelocytes Hypochromia Toxic Granulation Platelet Estimate Platelet Comment Polychromasia Poikilocytosis Anisocytosis Microcytosis Macrocytosis Spherocytes Target Cells Tear Drop Cells Ovalocytes [place] Cells Schistocytes PT with INR INR PTT (Actin FS) Fibrinogen Puncture Site ABG pH ABG pCO2 at Pt Temp ABG pO2 at Pt Temp ABG HCO3 ABG O2 Sat (Measured) ABG O2 Content ABG Base Excess Atul Test O2 Delivery Device Oxygen Flow Rate Vent Mode Vent Rate PEEP Pressure Support Vent Sodium Potassium Chloride Carbon Dioxide Anion Gap BUN Creatinine Est GFR (CKD-EPI)AfAm Est GFR (CKD-EPI)NonAf POC Glucometer 222 136 Random Glucose Lactic Acid Calcium Phosphorus Magnesium Iron TIBC Iron Saturation Unsaturated IBC Ferritin Total Bilirubin AST ALT Alkaline Phosphatase Creatine Kinase Troponin I Total Protein Albumin Prealbumin Triglycerides Cholesterol Total LDL Cholesterol HDL Cholesterol Beta-Hydroxybutyrate Urine Color Yellow Urine Appearance Clear Urine pH 6.0 Ur Specific [place] 1.029 Urine Protein Trace Urine Glucose (UA) Negative Urine Ketones Trace Urine Blood Nht Urine Nitrite Negative Urine Bilirubin Negative Urine Urobilinogen 0.2 Ur Leukocyte Esterase Negative Urine WBC (Auto) #forced Urine RBC (Auto) U Epithel Cells (Auto) Urine Bacteria (Auto) Stool Occult Blood Acetone, Qual B-Hydroxybutyrate 03/28/19 03/28/19 03/28/19 14:56 14:58 18:18 WBC RBC Hgb Hct MCV MCH MCHC RDW Plt Count MPV Absolute Neuts (auto) Total Counted Neutrophils % Neutrophils % (Manual) Band Neutrophils % Lymphocytes % Lymphocytes % (Manual) Monocytes % Monocytes % (Manual) Eosinophils % Eosinophils % (Manual) Basophils % Basophils % (Manual) Myelocytes % (Man) Promyelocytes % (Man) Blast Cells % (Manual) Nucleated RBC % Metamyelocytes Hypochromia Toxic Granulation Platelet Estimate Platelet Comment Polychromasia Poikilocytosis Anisocytosis Microcytosis Macrocytosis Spherocytes Target Cells Tear Drop Cells Ovalocytes [place] Cells Schistocytes PT with INR INR PTT (Actin FS) Fibrinogen Puncture Site ABG pH ABG pCO2 at Pt Temp ABG pO2 at Pt Temp ABG HCO3 ABG O2 Sat (Measured) ABG O2 Content ABG Base Excess Atul Test O2 Delivery Device Oxygen Flow Rate Vent Mode Vent Rate PEEP Pressure Support Vent Sodium Potassium Chloride Carbon Dioxide Anion Gap BUN Creatinine Est GFR (CKD-EPI)AfAm Est GFR (CKD-EPI)NonAf POC Glucometer [phone] Random Glucose Lactic Acid Calcium Phosphorus Magnesium Iron TIBC Iron Saturation Unsaturated IBC Ferritin Total Bilirubin AST ALT Alkaline Phosphatase Creatine Kinase Troponin I Total Protein Albumin Prealbumin Triglycerides Cholesterol Total LDL Cholesterol HDL Cholesterol Beta-Hydroxybutyrate Urine Color Urine Appearance Urine pH Ur Specific [place] Urine Protein Urine Glucose (UA) Urine Ketones Urine Blood Urine Nitrite Urine Bilirubin Urine Urobilinogen Ur Leukocyte Esterase Urine WBC (Auto) Urine RBC (Auto) U Epithel Cells (Auto) Urine Bacteria (Auto) Stool Occult Blood Acetone, Qual B-Hydroxybutyrate 03/28/19 03/28/19 03/29/19 21:40 23:04 01:34 WBC RBC Hgb Hct MCV MCH MCHC RDW Plt Count MPV Absolute Neuts (auto) Total Counted Neutrophils % Neutrophils % (Manual) Band Neutrophils % Lymphocytes % Lymphocytes % (Manual) Monocytes % Monocytes % (Manual) Eosinophils % Eosinophils % (Manual) Basophils % Basophils % (Manual) Myelocytes % (Man) Promyelocytes % (Man) Blast Cells % (Manual) Nucleated RBC % Metamyelocytes Hypochromia Toxic Granulation Platelet Estimate Platelet Comment Polychromasia Poikilocytosis Anisocytosis Microcytosis Macrocytosis Spherocytes Target Cells Tear Drop Cells Ovalocytes [place] Cells Schistocytes PT with INR INR PTT (Actin FS) Fibrinogen Puncture Site ABG pH ABG pCO2 at Pt Temp ABG pO2 at Pt Temp ABG HCO3 ABG O2 Sat (Measured) ABG O2 Content ABG Base Excess Atul Test O2 Delivery Device Oxygen Flow Rate Vent Mode Vent Rate PEEP Pressure Support Vent Sodium Potassium Chloride Carbon Dioxide Anion Gap BUN Creatinine Est GFR (CKD-EPI)AfAm Est GFR (CKD-EPI)NonAf POC Glucometer [phone] Random Glucose Lactic Acid Calcium Phosphorus Magnesium Iron TIBC Iron Saturation Unsaturated IBC Ferritin Total Bilirubin AST ALT Alkaline Phosphatase Creatine Kinase Troponin I Total Protein Albumin Prealbumin Triglycerides Cholesterol Total LDL Cholesterol HDL Cholesterol Beta-Hydroxybutyrate Urine Color Urine Appearance Urine pH Ur Specific [place] Urine Protein Urine Glucose (UA) Urine Ketones Urine Blood Urine Nitrite Urine Bilirubin Urine Urobilinogen Ur Leukocyte Esterase Urine WBC (Auto) Urine RBC (Auto) U Epithel Cells (Auto) Urine Bacteria (Auto) Stool Occult Blood Acetone, Qual B-Hydroxybutyrate 03/29/19 03/29/19 03/29/19 05:08 06:00 06:00 WBC 8.4 RBC 3.08 L Hgb 8.5 L Hct 25.6 L MCV 83.2 MCH 27.8 MCHC 33.4 RDW 23.7 H Plt Count 511 H D MPV 7.6 Absolute Neuts (auto) Total Counted Neutrophils % Neutrophils % (Manual) Band Neutrophils % Lymphocytes % Lymphocytes % (Manual) Monocytes % Monocytes % (Manual) Eosinophils % Eosinophils % (Manual) Basophils % Basophils % (Manual) Myelocytes % (Man) Promyelocytes % (Man) Blast Cells % (Manual) Nucleated RBC % Metamyelocytes Hypochromia Toxic Granulation Platelet Estimate Platelet Comment Polychromasia Poikilocytosis Anisocytosis Microcytosis Macrocytosis Spherocytes Target Cells Tear Drop Cells Ovalocytes [place] Cells Schistocytes PT with INR INR PTT (Actin FS) Fibrinogen Puncture Site ABG pH ABG pCO2 at Pt Temp ABG pO2 at Pt Temp ABG HCO3 ABG O2 Sat (Measured) ABG O2 Content ABG Base Excess Atul Test O2 Delivery Device Oxygen Flow Rate Vent Mode Vent Rate PEEP Pressure Support Vent Sodium 140 Potassium 3.9 Chloride 99 Carbon Dioxide 35 H Anion Gap 6 L BUN 16.3 Creatinine 0.4 L Est GFR (CKD-EPI)AfAm 141.75 Est GFR (CKD-EPI)NonAf 122.30 POC Glucometer 150 Random Glucose 264 H Lactic Acid Calcium 7.4 L Phosphorus 1.9 L Magnesium 2.1 Iron TIBC Iron Saturation Unsaturated IBC Ferritin Total Bilirubin 0.2 AST 25 ALT 12 L Alkaline Phosphatase 156 H Creatine Kinase Troponin I Total Protein 5.2 L Albumin 1.5 L Prealbumin Triglycerides Cholesterol Total LDL Cholesterol HDL Cholesterol Beta-Hydroxybutyrate Urine Color Urine Appearance Urine pH Ur Specific [place] Urine Protein Urine Glucose (UA) Urine Ketones Urine Blood Urine Nitrite Urine Bilirubin Urine Urobilinogen Ur Leukocyte Esterase Urine WBC (Auto) Urine RBC (Auto) U Epithel Cells (Auto) Urine Bacteria (Auto) Stool Occult Blood Acetone, Qual B-Hydroxybutyrate 03/29/19 03/29/19 03/29/19 10:32 10:34 14:03 WBC RBC Hgb Hct MCV MCH MCHC RDW Plt Count MPV Absolute Neuts (auto) Total Counted Neutrophils % Neutrophils % (Manual) Band Neutrophils % Lymphocytes % Lymphocytes % (Manual) Monocytes % Monocytes % (Manual) Eosinophils % Eosinophils % (Manual) Basophils % Basophils % (Manual) Myelocytes % (Man) Promyelocytes % (Man) Blast Cells % (Manual) Nucleated RBC % Metamyelocytes Hypochromia Toxic Granulation Platelet Estimate Platelet Comment Polychromasia Poikilocytosis Anisocytosis Microcytosis Macrocytosis Spherocytes Target Cells Tear Drop Cells Ovalocytes [place] Cells Schistocytes PT with INR INR PTT (Actin FS) Fibrinogen Puncture Site ABG pH ABG pCO2 at Pt Temp ABG pO2 at Pt Temp ABG HCO3 ABG O2 Sat (Measured) ABG O2 Content ABG Base Excess Atul Test O2 Delivery Device Oxygen Flow Rate Vent Mode Vent Rate PEEP Pressure Support Vent Sodium Potassium Chloride Carbon Dioxide Anion Gap BUN Creatinine Est GFR (CKD-EPI)AfAm Est GFR (CKD-EPI)NonAf POC Glucometer [phone] Random Glucose Lactic Acid Calcium Phosphorus Magnesium Iron TIBC Iron Saturation Unsaturated IBC Ferritin Total Bilirubin AST ALT Alkaline Phosphatase Creatine Kinase Troponin I Total Protein Albumin Prealbumin Triglycerides Cholesterol Total LDL Cholesterol HDL Cholesterol Beta-Hydroxybutyrate Urine Color Urine Appearance Urine pH Ur Specific [place] Urine Protein Urine Glucose (UA) Urine Ketones Urine Blood Urine Nitrite Urine Bilirubin Urine Urobilinogen Ur Leukocyte Esterase Urine WBC (Auto) Urine RBC (Auto) U Epithel Cells (Auto) Urine Bacteria (Auto) Stool Occult Blood Acetone, Qual B-Hydroxybutyrate 03/29/19 03/29/19 03/29/19 18:00 19:41 21:54 WBC RBC Hgb Hct MCV MCH MCHC RDW Plt Count MPV Absolute Neuts (auto) Total Counted Neutrophils % Neutrophils % (Manual) Band Neutrophils % Lymphocytes % Lymphocytes % (Manual) Monocytes % Monocytes % (Manual) Eosinophils % Eosinophils % (Manual) Basophils % Basophils % (Manual) Myelocytes % (Man) Promyelocytes % (Man) Blast Cells % (Manual) Nucleated RBC % Metamyelocytes Hypochromia Toxic Granulation Platelet Estimate Platelet Comment Polychromasia Poikilocytosis Anisocytosis Microcytosis Macrocytosis Spherocytes Target Cells Tear Drop Cells Ovalocytes [place] Cells Schistocytes PT with INR INR PTT (Actin FS) Fibrinogen Puncture Site ABG pH ABG pCO2 at Pt Temp ABG pO2 at Pt Temp ABG HCO3 ABG O2 Sat (Measured) ABG O2 Content ABG Base Excess Atul Test O2 Delivery Device Oxygen Flow Rate Vent Mode Vent Rate PEEP Pressure Support Vent Sodium Potassium Chloride Carbon Dioxide Anion Gap BUN Creatinine Est GFR (CKD-EPI)AfAm Est GFR (CKD-EPI)NonAf POC Glucometer 70 [phone] Random Glucose Lactic Acid Calcium Phosphorus Magnesium Iron TIBC Iron Saturation Unsaturated IBC Ferritin Total Bilirubin AST ALT Alkaline Phosphatase Creatine Kinase Troponin I Total Protein Albumin Prealbumin Triglycerides Cholesterol Total LDL Cholesterol HDL Cholesterol Beta-Hydroxybutyrate Urine Color Urine Appearance Urine pH Ur Specific [place] Urine Protein Urine Glucose (UA) Urine Ketones Urine Blood Urine Nitrite Urine Bilirubin Urine Urobilinogen Ur Leukocyte Esterase Urine WBC (Auto) Urine RBC (Auto) U Epithel Cells (Auto) Urine Bacteria (Auto) Stool Occult Blood Acetone, Qual B-Hydroxybutyrate 03/30/19 03/30/19 03/30/19 01:39 06:06 06:39 WBC RBC Hgb Hct MCV MCH MCHC RDW Plt Count MPV Absolute Neuts (auto) Total Counted Neutrophils % Neutrophils % (Manual) Band Neutrophils % Lymphocytes % Lymphocytes % (Manual) Monocytes % Monocytes % (Manual) Eosinophils % Eosinophils % (Manual) Basophils % Basophils % (Manual) Myelocytes % (Man) Promyelocytes % (Man) Blast Cells % (Manual) Nucleated RBC % Metamyelocytes Hypochromia Toxic Granulation Platelet Estimate Platelet Comment Polychromasia Poikilocytosis Anisocytosis Microcytosis Macrocytosis Spherocytes Target Cells Tear Drop Cells Ovalocytes [place] Cells Schistocytes PT with INR INR PTT (Actin FS) Fibrinogen Puncture Site ABG pH ABG pCO2 at Pt Temp ABG pO2 at Pt Temp ABG HCO3 ABG O2 Sat (Measured) ABG O2 Content ABG Base Excess Atul Test O2 Delivery Device Oxygen Flow Rate Vent Mode Vent Rate PEEP Pressure Support Vent Sodium Potassium Chloride Carbon Dioxide Anion Gap BUN Creatinine Est GFR (CKD-EPI)AfAm Est GFR (CKD-EPI)NonAf POC Glucometer [phone] Random Glucose Lactic Acid Calcium Phosphorus Magnesium Iron TIBC Iron Saturation Unsaturated IBC Ferritin Total Bilirubin AST ALT Alkaline Phosphatase Creatine Kinase Troponin I Total Protein Albumin Prealbumin Triglycerides Cholesterol Total LDL Cholesterol HDL Cholesterol Beta-Hydroxybutyrate Urine Color Urine Appearance Urine pH Ur Specific [place] Urine Protein Urine Glucose (UA) Urine Ketones Urine Blood Urine Nitrite Urine Bilirubin Urine Urobilinogen Ur Leukocyte Esterase Urine WBC (Auto) Urine RBC (Auto) U Epithel Cells (Auto) Urine Bacteria (Auto) Stool Occult Blood Acetone, Qual B-Hydroxybutyrate 03/30/19 03/30/19 03/30/19 08:50 08:50 10:29 WBC Electrical [employer]liance [employer] RBC Electrical [employer]liance [employer]ic Hgb Electrical Appliance Mechanic Hct Electrical Appliance Mechanic MCV Electrical Appliance [employer]ic MCH Electrical Appliance Mechanic MCHC Electrical Appliance Mechanic RDW Electrical Appliance Mechanic Plt Count Electrical Appliance Mechanic MPV Electrical Appliance Mechanic Absolute Neuts (auto) Electrical Appliance Mechanic Total Counted Neutrophils % Electrical Appliance Mechanic Neutrophils % (Manual) Band Neutrophils % Lymphocytes % Electrical Appliance Mechanic Lymphocytes % (Manual) Monocytes % Electrical Appliance Mechanic Monocytes % (Manual) Eosinophils % Electrical Appliance [employer]ic Eosinophils % (Manual) Basophils % Electrical Appliance Mechanic Basophils % (Manual) Myelocytes % (Man) Promyelocytes % (Man) Blast Cells % (Manual) Nucleated RBC % Electrical Appliance Mechanic Metamyelocytes Hypochromia Toxic Granulation Platelet Estimate Platelet Comment Polychromasia Poikilocytosis Anisocytosis Microcytosis Macrocytosis Spherocytes Target Cells Tear Drop Cells Ovalocytes [place] Cells Schistocytes PT with INR INR PTT (Actin FS) Fibrinogen Puncture Site ABG pH ABG pCO2 at Pt Temp ABG pO2 at Pt Temp ABG HCO3 ABG O2 Sat (Measured) ABG O2 Content ABG Base Excess Atul Test O2 Delivery Device Oxygen Flow Rate Vent Mode Vent Rate PEEP Pressure Support Vent Sodium 147 H Potassium 3.5 Chloride 105 Carbon Dioxide 34 H Anion Gap 7 L BUN 17.6 Creatinine 0.3 L Est GFR (CKD-EPI)AfAm 155.82 Est GFR (CKD-EPI)NonAf 134.44 POC Glucometer 222 Random Glucose 99 Lactic Acid Calcium 7.9 L Phosphorus 2.5 Magnesium 2.2 Iron TIBC Iron Saturation Unsaturated IBC Ferritin Total Bilirubin 0.2 AST 21 ALT 11 L Alkaline Phosphatase 137 H Creatine Kinase Troponin I Total Protein 5.2 L Albumin 1.5 L Prealbumin Triglycerides Cholesterol Total LDL Cholesterol HDL Cholesterol Beta-Hydroxybutyrate Urine Color Urine Appearance Urine pH Ur Specific [place] Urine Protein Urine Glucose (UA) Urine Ketones Urine Blood Urine Nitrite Urine Bilirubin Urine Urobilinogen Ur Leukocyte Esterase Urine WBC (Auto) Urine RBC (Auto) U Epithel Cells (Auto) Urine Bacteria (Auto) Stool Occult Blood Acetone, Qual B-Hydroxybutyrate 03/30/19 03/30/19 03/30/19 14:32 18:21 21:53 WBC RBC Hgb Hct MCV MCH MCHC RDW Plt Count MPV Absolute Neuts (auto) Total Counted Neutrophils % Neutrophils % (Manual) Band Neutrophils % Lymphocytes % Lymphocytes % (Manual) Monocytes % Monocytes % (Manual) Eosinophils % Eosinophils % (Manual) Basophils % Basophils % (Manual) Myelocytes % (Man) Promyelocytes % (Man) Blast Cells % (Manual) Nucleated RBC % Metamyelocytes Hypochromia Toxic Granulation Platelet Estimate Platelet Comment Polychromasia Poikilocytosis Anisocytosis Microcytosis Macrocytosis Spherocytes Target Cells Tear Drop Cells Ovalocytes [place] Cells Schistocytes PT with INR INR PTT (Actin FS) Fibrinogen Puncture Site ABG pH ABG pCO2 at Pt Temp ABG pO2 at Pt Temp ABG HCO3 ABG O2 Sat (Measured) ABG O2 Content ABG Base Excess Atul Test O2 Delivery Device Oxygen Flow Rate Vent Mode Vent Rate PEEP Pressure Support Vent Sodium Potassium Chloride Carbon Dioxide Anion Gap BUN Creatinine Est GFR (CKD-EPI)AfAm Est GFR (CKD-EPI)NonAf POC Glucometer [phone] Random Glucose Lactic Acid Calcium Phosphorus Magnesium Iron TIBC Iron Saturation Unsaturated IBC Ferritin Total Bilirubin AST ALT Alkaline Phosphatase Creatine Kinase Troponin I Total Protein Albumin Prealbumin Triglycerides Cholesterol Total LDL Cholesterol HDL Cholesterol Beta-Hydroxybutyrate Urine Color Urine Appearance Urine pH Ur Specific [place] Urine Protein Urine Glucose (UA) Urine Ketones Urine Blood Urine Nitrite Urine Bilirubin Urine Urobilinogen Ur Leukocyte Esterase Urine WBC (Auto) Urine RBC (Auto) U Epithel Cells (Auto) Urine Bacteria (Auto) Stool Occult Blood Acetone, Qual B-Hydroxybutyrate 03/31/19 03/31/19 03/31/19 02:50 06:00 06:00 WBC 7.7 RBC 2.58 L Hgb 7.1 L Hct 22.0 L MCV 85.0 MCH 27.4 MCHC 32.3 RDW 24.3 H Plt Count 540 H MPV 7.7 Absolute Neuts (auto) 6.0 Total Counted Neutrophils % 77.6 D Neutrophils % (Manual) Band Neutrophils % Lymphocytes % 12.9 D Lymphocytes % (Manual) Monocytes % 7.1 Monocytes % (Manual) Eosinophils % 0.6 D Eosinophils % (Manual) Basophils % 1.8 Basophils % (Manual) Myelocytes % (Man) Promyelocytes % (Man) Blast Cells % (Manual) Nucleated RBC % 0 Metamyelocytes Hypochromia Toxic Granulation Platelet Estimate Platelet Comment Polychromasia Poikilocytosis Anisocytosis Microcytosis Macrocytosis Spherocytes Target Cells Tear Drop Cells Ovalocytes [place] Cells Schistocytes PT with INR INR PTT (Actin FS) Fibrinogen Puncture Site ABG pH ABG pCO2 at Pt Temp ABG pO2 at Pt Temp ABG HCO3 ABG O2 Sat (Measured) ABG O2 Content ABG Base Excess Atul Test O2 Delivery Device Oxygen Flow Rate Vent Mode Vent Rate PEEP Pressure Support Vent Sodium 143 Potassium 3.1 L Chloride 105 Carbon Dioxide 26 Anion Gap 12 BUN 15.9 Creatinine 0.5 L Est GFR (CKD-EPI)AfAm 131.72 Est GFR (CKD-EPI)NonAf 113.65 POC Glucometer 387 Random Glucose 157 H Lactic Acid Calcium 7.6 L Phosphorus 1.7 L Magnesium 2.0 Iron TIBC Iron Saturation Unsaturated IBC Ferritin Total Bilirubin 0.3 AST 19 ALT 13 Alkaline Phosphatase 130 H Creatine Kinase Troponin I Total Protein 5.0 L Albumin 1.6 L Prealbumin Triglycerides Cholesterol Total LDL Cholesterol HDL Cholesterol Beta-Hydroxybutyrate Urine Color Urine Appearance Urine pH Ur Specific [place] Urine Protein Urine Glucose (UA) Urine Ketones Urine Blood Urine Nitrite Urine Bilirubin Urine Urobilinogen Ur Leukocyte Esterase Urine WBC (Auto) Urine RBC (Auto) U Epithel Cells (Auto) Urine Bacteria (Auto) Stool Occult Blood Acetone, Qual B-Hydroxybutyrate 03/31/19 03/31/19 03/31/19 06:43 12:18 15:09 WBC RBC Hgb Hct MCV MCH MCHC RDW Plt Count MPV Absolute Neuts (auto) Total Counted Neutrophils % Neutrophils % (Manual) Band Neutrophils % Lymphocytes % Lymphocytes % (Manual) Monocytes % Monocytes % (Manual) Eosinophils % Eosinophils % (Manual) Basophils % Basophils % (Manual) Myelocytes % (Man) Promyelocytes % (Man) Blast Cells % (Manual) Nucleated RBC % Metamyelocytes Hypochromia Toxic Granulation Platelet Estimate Platelet Comment Polychromasia Poikilocytosis Anisocytosis Microcytosis Macrocytosis Spherocytes Target Cells Tear Drop Cells Ovalocytes [place] Cells Schistocytes PT with INR INR PTT (Actin FS) Fibrinogen Puncture Site ABG pH ABG pCO2 at Pt Temp ABG pO2 at Pt Temp ABG HCO3 ABG O2 Sat (Measured) ABG O2 Content ABG Base Excess Atul Test O2 Delivery Device Oxygen Flow Rate Vent Mode Vent Rate PEEP Pressure Support Vent Sodium Potassium Chloride Carbon Dioxide Anion Gap BUN Creatinine Est GFR (CKD-EPI)AfAm Est GFR (CKD-EPI)NonAf POC Glucometer [phone] Random Glucose Lactic Acid Calcium Phosphorus Magnesium Iron TIBC Iron Saturation Unsaturated IBC Ferritin Total Bilirubin AST ALT Alkaline Phosphatase Creatine Kinase Troponin I Total Protein Albumin Prealbumin Triglycerides Cholesterol Total LDL Cholesterol HDL Cholesterol Beta-Hydroxybutyrate Urine Color Urine Appearance Urine pH Ur Specific [place] Urine Protein Urine Glucose (UA) Urine Ketones Urine Blood Urine Nitrite Urine Bilirubin Urine Urobilinogen Ur Leukocyte Esterase Urine WBC (Auto) Urine RBC (Auto) U Epithel Cells (Auto) Urine Bacteria (Auto) Stool Occult Blood Acetone, Qual B-Hydroxybutyrate 03/31/19 03/31/19 04/01/19 17:22 22:27 02:36 WBC RBC Hgb Hct MCV MCH MCHC RDW Plt Count MPV Absolute Neuts (auto) Total Counted Neutrophils % Neutrophils % (Manual) Band Neutrophils % Lymphocytes % Lymphocytes % (Manual) Monocytes % Monocytes % (Manual) Eosinophils % Eosinophils % (Manual) Basophils % Basophils % (Manual) Myelocytes % (Man) Promyelocytes % (Man) Blast Cells % (Manual) Nucleated RBC % Metamyelocytes Hypochromia Toxic Granulation Platelet Estimate Platelet Comment Polychromasia Poikilocytosis Anisocytosis Microcytosis Macrocytosis Spherocytes Target Cells Tear Drop Cells Ovalocytes [place] Cells Schistocytes PT with INR INR PTT (Actin FS) Fibrinogen Puncture Site ABG pH ABG pCO2 at Pt Temp ABG pO2 at Pt Temp ABG HCO3 ABG O2 Sat (Measured) ABG O2 Content ABG Base Excess Atul Test O2 Delivery Device Oxygen Flow Rate Vent Mode Vent Rate PEEP Pressure Support Vent Sodium Potassium Chloride Carbon Dioxide Anion Gap BUN Creatinine Est GFR (CKD-EPI)AfAm Est GFR (CKD-EPI)NonAf POC Glucometer [phone] Random Glucose Lactic Acid Calcium Phosphorus Magnesium Iron TIBC Iron Saturation Unsaturated IBC Ferritin Total Bilirubin AST ALT Alkaline Phosphatase Creatine Kinase Troponin I Total Protein Albumin Prealbumin Triglycerides Cholesterol Total LDL Cholesterol HDL Cholesterol Beta-Hydroxybutyrate Urine Color Urine Appearance Urine pH Ur Specific [place] Urine Protein Urine Glucose (UA) Urine Ketones Urine Blood Urine Nitrite Urine Bilirubin Urine Urobilinogen Ur Leukocyte Esterase Urine WBC (Auto) Urine RBC (Auto) U Epithel Cells (Auto) Urine Bacteria (Auto) Stool Occult Blood Acetone, Qual B-Hydroxybutyrate 04/01/19 04/01/19 04/01/19 06:07 06:43 06:43 WBC 12.8 H RBC 3.43 L Hgb 9.4 L Hct 29.8 L D MCV 87.0 MCH 27.5 MCHC 31.6 L RDW 23.2 H Plt Count 691 H D MPV 7.5 Absolute Neuts (auto) 11.4 H Total Counted Neutrophils % 88.8 H Neutrophils % (Manual) Band Neutrophils % Lymphocytes % 5.8 L D Lymphocytes % (Manual) Monocytes % 4.8 Monocytes % (Manual) Eosinophils % 0.0 D Eosinophils % (Manual) Basophils % 0.6 Basophils % (Manual) Myelocytes % (Man) Promyelocytes % (Man) Blast Cells % (Manual) Nucleated RBC % 0 Metamyelocytes Hypochromia Toxic Granulation Platelet Estimate Platelet Comment Polychromasia Poikilocytosis Anisocytosis Microcytosis Macrocytosis Spherocytes Target Cells Tear Drop Cells Ovalocytes [place] Cells Schistocytes PT with INR INR PTT (Actin FS) Fibrinogen Puncture Site ABG pH ABG pCO2 at Pt Temp ABG pO2 at Pt Temp ABG HCO3 ABG O2 Sat (Measured) ABG O2 Content ABG Base Excess Atul Test O2 Delivery Device Oxygen Flow Rate Vent Mode Vent Rate PEEP Pressure Support Vent Sodium 149 H Potassium 3.4 L Chloride 112 H Carbon Dioxide 16 L Anion Gap 20 H BUN 15.4 Creatinine 0.5 L Est GFR (CKD-EPI)AfAm 131.72 Est GFR (CKD-EPI)NonAf 113.65 POC Glucometer 247 Random Glucose 254 H Lactic Acid Calcium 8.4 L Phosphorus Magnesium 2.2 Iron TIBC Iron Saturation Unsaturated IBC Ferritin Total Bilirubin 0.6 AST 27 ALT 17 Alkaline Phosphatase 174 H Creatine Kinase Troponin I Total Protein 6.5 Albumin 2.1 L Prealbumin Triglycerides Cholesterol Total LDL Cholesterol HDL Cholesterol Beta-Hydroxybutyrate Urine Color Urine Appearance Urine pH Ur Specific [place] Urine Protein Urine Glucose (UA) Urine Ketones Urine Blood Urine Nitrite Urine Bilirubin Urine Urobilinogen Ur Leukocyte Esterase Urine WBC (Auto) Urine RBC (Auto) U Epithel Cells (Auto) Urine Bacteria (Auto) Stool Occult Blood Acetone, Qual B-Hydroxybutyrate 04/01/19 04/01/19 04/01/19 08:27 08:50 10:00 WBC RBC Hgb Hct MCV MCH MCHC RDW Plt Count MPV Absolute Neuts (auto) Total Counted Neutrophils % Neutrophils % (Manual) Band Neutrophils % Lymphocytes % Lymphocytes % (Manual) Monocytes % Monocytes % (Manual) Eosinophils % Eosinophils % (Manual) Basophils % Basophils % (Manual) Myelocytes % (Man) Promyelocytes % (Man) Blast Cells % (Manual) Nucleated RBC % Metamyelocytes Hypochromia Toxic Granulation Platelet Estimate Platelet Comment Polychromasia Poikilocytosis Anisocytosis Microcytosis Macrocytosis Spherocytes Target Cells Tear Drop Cells Ovalocytes [place] Cells Schistocytes PT with INR INR PTT (Actin FS) Fibrinogen Puncture Site Right brachial ABG pH 7.32 L ABG pCO2 at Pt Temp 17.5 L ABG pO2 at Pt Temp 115 H ABG HCO3 8.8 L ABG O2 Sat (Measured) 97.7 ABG O2 Content 12.7 ABG Base Excess -15.9 L Atul Test Positive O2 Delivery Device Room air Oxygen Flow Rate 21% Vent Mode Vent Rate PEEP Pressure Support Vent Sodium 148 H Potassium 3.8 Chloride 112 H Carbon Dioxide 7 L Anion Gap 29 H BUN 17.2 Creatinine 0.6 Est GFR (CKD-EPI)AfAm 124.05 Est GFR (CKD-EPI)NonAf 107.03 POC Glucometer Random Glucose 488 H* Lactic Acid Calcium 8.1 L Phosphorus Magnesium Iron TIBC Iron Saturation Unsaturated IBC Ferritin Total Bilirubin AST ALT Alkaline Phosphatase Creatine Kinase Troponin I Total Protein Albumin Prealbumin Triglycerides Cholesterol Total LDL Cholesterol HDL Cholesterol Beta-Hydroxybutyrate Urine Color Urine Appearance Urine pH Ur Specific [place] Urine Protein Urine Glucose (UA) Urine Ketones Urine Blood Urine Nitrite Urine Bilirubin Urine Urobilinogen Ur Leukocyte Esterase Urine WBC (Auto) Urine RBC (Auto) U Epithel Cells (Auto) Urine Bacteria (Auto) Stool Occult Blood Acetone, Qual Positive moderate 2+ H B-Hydroxybutyrate 04/01/19 04/01/19 04/01/19 10:32 11:10 12:59 WBC RBC Hgb Hct MCV MCH MCHC RDW Plt Count MPV Absolute Neuts (auto) Total Counted Neutrophils % Neutrophils % (Manual) Band Neutrophils % Lymphocytes % Lymphocytes % (Manual) Monocytes % Monocytes % (Manual) Eosinophils % Eosinophils % (Manual) Basophils % Basophils % (Manual) Myelocytes % (Man) Promyelocytes % (Man) Blast Cells % (Manual) Nucleated RBC % Metamyelocytes Hypochromia Toxic Granulation Platelet Estimate Platelet Comment Polychromasia Poikilocytosis Anisocytosis Microcytosis Macrocytosis Spherocytes Target Cells Tear Drop Cells Ovalocytes [place] Cells Schistocytes PT with INR INR PTT (Actin FS) Fibrinogen Puncture Site Right radial ABG pH 7.08 L* ABG pCO2 at Pt Temp 13.9 L* ABG pO2 at Pt Temp 163 H ABG HCO3 4.0 L ABG O2 Sat (Measured) 97.5 ABG O2 Content 12.1 ABG Base Excess -24.8 L Atul Test Positive O2 Delivery Device Oxygen Flow Rate Yes Vent Mode Vent Rate PEEP Pressure Support Vent Sodium Potassium Chloride Carbon Dioxide Anion Gap BUN Creatinine Est GFR (CKD-EPI)AfAm Est GFR (CKD-EPI)NonAf POC Glucometer 440 Random Glucose Lactic Acid 2.4 H* Calcium Phosphorus Magnesium Iron TIBC Iron Saturation Unsaturated IBC Ferritin Total Bilirubin AST ALT Alkaline Phosphatase Creatine Kinase Troponin I Total Protein Albumin Prealbumin Triglycerides Cholesterol Total LDL Cholesterol HDL Cholesterol Beta-Hydroxybutyrate Urine Color Urine Appearance Urine pH Ur Specific [place] Urine Protein Urine Glucose (UA) Urine Ketones Urine Blood Urine Nitrite Urine Bilirubin Urine Urobilinogen Ur Leukocyte Esterase Urine WBC (Auto) Urine RBC (Auto) U Epithel Cells (Auto) Urine Bacteria (Auto) Stool Occult Blood Acetone, Qual B-Hydroxybutyrate 04/01/19 04/01/19 04/01/19 12:59 15:29 17:05 WBC RBC Hgb Hct MCV MCH MCHC RDW Plt Count MPV Absolute Neuts (auto) Total Counted Neutrophils % Neutrophils % (Manual) Band Neutrophils % Lymphocytes % Lymphocytes % (Manual) Monocytes % Monocytes % (Manual) Eosinophils % Eosinophils % (Manual) Basophils % Basophils % (Manual) Myelocytes % (Man) Promyelocytes % (Man) Blast Cells % (Manual) Nucleated RBC % Metamyelocytes Hypochromia Toxic Granulation Platelet Estimate Platelet Comment Polychromasia Poikilocytosis Anisocytosis Microcytosis Macrocytosis Spherocytes Target Cells Tear Drop Cells Ovalocytes [place] Cells Schistocytes PT with INR INR PTT (Actin FS) Fibrinogen Puncture Site ABG pH ABG pCO2 at Pt Temp ABG pO2 at Pt Temp ABG HCO3 ABG O2 Sat (Measured) ABG O2 Content ABG Base Excess Atul Test O2 Delivery Device Oxygen Flow Rate Vent Mode Vent Rate PEEP Pressure Support Vent Sodium Potassium Chloride Carbon Dioxide Anion Gap BUN Creatinine Est GFR (CKD-EPI)AfAm Est GFR (CKD-EPI)NonAf POC Glucometer 228 238 Random Glucose Lactic Acid Calcium Phosphorus Magnesium Iron TIBC Iron Saturation Unsaturated IBC Ferritin Total Bilirubin AST ALT Alkaline Phosphatase Creatine Kinase Troponin I Total Protein Albumin Prealbumin Triglycerides Cholesterol Total LDL Cholesterol HDL Cholesterol Beta-Hydroxybutyrate Urine Color Urine Appearance Urine pH Ur Specific [place] Urine Protein Urine Glucose (UA) Urine Ketones Urine Blood Urine Nitrite Urine Bilirubin Urine Urobilinogen Ur Leukocyte Esterase Urine WBC (Auto) Urine RBC (Auto) U Epithel Cells (Auto) Urine Bacteria (Auto) Stool Occult Blood Acetone, Qual B-Hydroxybutyrate 124.00 H 04/01/19 04/01/19 04/01/19 18:21 18:40 19:21 WBC RBC Hgb Hct MCV MCH MCHC RDW Plt Count MPV Absolute Neuts (auto) Total Counted Neutrophils % Neutrophils % (Manual) Band Neutrophils % Lymphocytes % Lymphocytes % (Manual) Monocytes % Monocytes % (Manual) Eosinophils % Eosinophils % (Manual) Basophils % Basophils % (Manual) Myelocytes % (Man) Promyelocytes % (Man) Blast Cells % (Manual) Nucleated RBC % Metamyelocytes Hypochromia Toxic Granulation Platelet Estimate Platelet Comment Polychromasia Poikilocytosis Anisocytosis Microcytosis Macrocytosis Spherocytes Target Cells Tear Drop Cells Ovalocytes [place] Cells Schistocytes PT with INR INR PTT (Actin FS) Fibrinogen Puncture Site Right brachial ABG pH 7.32 L ABG pCO2 at Pt Temp 36.2 ABG pO2 at Pt Temp 181 H ABG HCO3 18.2 L ABG O2 Sat (Measured) 99.4 H ABG O2 Content 14.2 ABG Base Excess -6.8 L Atul Test Positive O2 Delivery Device Mech. vent. Oxygen Flow Rate 50% Vent Mode A/c Vent Rate 14 PEEP Pressure Support Vent 350 Sodium Potassium Chloride Carbon Dioxide Anion Gap BUN Creatinine Est GFR (CKD-EPI)AfAm Est GFR (CKD-EPI)NonAf POC Glucometer 160 118 Random Glucose Lactic Acid Calcium Phosphorus Magnesium Iron TIBC Iron Saturation Unsaturated IBC Ferritin Total Bilirubin AST ALT Alkaline Phosphatase Creatine Kinase Troponin I Total Protein Albumin Prealbumin Triglycerides Cholesterol Total LDL Cholesterol HDL Cholesterol Beta-Hydroxybutyrate Urine Color Urine Appearance Urine pH Ur Specific [place] Urine Protein Urine Glucose (UA) Urine Ketones Urine Blood Urine Nitrite Urine Bilirubin Urine Urobilinogen Ur Leukocyte Esterase Urine WBC (Auto) Urine RBC (Auto) U Epithel Cells (Auto) Urine Bacteria (Auto) Stool Occult Blood Acetone, Qual B-Hydroxybutyrate 04/01/19 04/01/19 04/01/19 20:00 20:14 21:55 WBC RBC Hgb Hct MCV MCH MCHC RDW Plt Count MPV Absolute Neuts (auto) Total Counted Neutrophils % Neutrophils % (Manual) Band Neutrophils % Lymphocytes % Lymphocytes % (Manual) Monocytes % Monocytes % (Manual) Eosinophils % Eosinophils % (Manual) Basophils % Basophils % (Manual) Myelocytes % (Man) Promyelocytes % (Man) Blast Cells % (Manual) Nucleated RBC % Metamyelocytes Hypochromia Toxic Granulation Platelet Estimate Platelet Comment Polychromasia Poikilocytosis Anisocytosis Microcytosis Macrocytosis Spherocytes Target Cells Tear Drop Cells Ovalocytes [place] Cells Schistocytes PT with INR INR PTT (Actin FS) Fibrinogen Puncture Site ABG pH ABG pCO2 at Pt Temp ABG pO2 at Pt Temp ABG HCO3 ABG O2 Sat (Measured) ABG O2 Content ABG Base Excess Atul Test O2 Delivery Device Oxygen Flow Rate Vent Mode Vent Rate PEEP Pressure Support Vent Sodium 154 H Potassium 3.0 L Chloride 116 H Carbon Dioxide 23 Anion Gap 15 BUN 17.9 Creatinine 0.9 Est GFR (CKD-EPI)AfAm 87.02 Est GFR (CKD-EPI)NonAf 75.08 POC Glucometer 110 176 Random Glucose 96 Lactic Acid Calcium 8.1 L Phosphorus Magnesium Iron TIBC Iron Saturation Unsaturated IBC Ferritin Total Bilirubin AST ALT Alkaline Phosphatase Creatine Kinase Troponin I Total Protein Albumin Prealbumin Triglycerides Cholesterol Total LDL Cholesterol HDL Cholesterol Beta-Hydroxybutyrate Urine Color Urine Appearance Urine pH Ur Specific [place] Urine Protein Urine Glucose (UA) Urine Ketones Urine Blood Urine Nitrite Urine Bilirubin Urine Urobilinogen Ur Leukocyte Esterase Urine WBC (Auto) Urine RBC (Auto) U Epithel Cells (Auto) Urine Bacteria (Auto) Stool Occult Blood Acetone, Qual B-Hydroxybutyrate 04/02/19 04/02/19 04/02/19 00:47 01:00 01:00 WBC RBC Hgb Hct MCV MCH MCHC RDW Plt Count MPV Absolute Neuts (auto) Total Counted Neutrophils % Neutrophils % (Manual) Band Neutrophils % Lymphocytes % Lymphocytes % (Manual) Monocytes % Monocytes % (Manual) Eosinophils % Eosinophils % (Manual) Basophils % Basophils % (Manual) Myelocytes % (Man) Promyelocytes % (Man) Blast Cells % (Manual) Nucleated RBC % Metamyelocytes Hypochromia Toxic Granulation Platelet Estimate Platelet Comment Polychromasia Poikilocytosis Anisocytosis Microcytosis Macrocytosis Spherocytes Target Cells Tear Drop Cells Ovalocytes [place] Cells Schistocytes PT with INR INR PTT (Actin FS) Fibrinogen Puncture Site ABG pH ABG pCO2 at Pt Temp ABG pO2 at Pt Temp ABG HCO3 ABG O2 Sat (Measured) ABG O2 Content ABG Base Excess Atul Test O2 Delivery Device Oxygen Flow Rate Vent Mode Vent Rate PEEP Pressure Support Vent Sodium 155 H Potassium 3.2 L Chloride 120 H Carbon Dioxide 25 Anion Gap 9 BUN 20.8 H Creatinine 0.9 Est GFR (CKD-EPI)AfAm 87.02 Est GFR (CKD-EPI)NonAf 75.08 POC Glucometer 82 Random Glucose 78 Lactic Acid 1.8 Calcium 7.8 L Phosphorus Magnesium Iron TIBC Iron Saturation Unsaturated IBC Ferritin Total Bilirubin AST ALT Alkaline Phosphatase Creatine Kinase Troponin I Total Protein Albumin Prealbumin Triglycerides Cholesterol Total LDL Cholesterol HDL Cholesterol Beta-Hydroxybutyrate Urine Color Urine Appearance Urine pH Ur Specific [place] Urine Protein Urine Glucose (UA) Urine Ketones Urine Blood Urine Nitrite Urine Bilirubin Urine Urobilinogen Ur Leukocyte Esterase Urine WBC (Auto) Urine RBC (Auto) U Epithel Cells (Auto) Urine Bacteria (Auto) Stool Occult Blood Acetone, Qual B-Hydroxybutyrate 04/02/19 04/02/19 04/02/19 02:08 03:06 04:19 WBC RBC Hgb Hct MCV MCH MCHC RDW Plt Count MPV Absolute Neuts (auto) Total Counted Neutrophils % Neutrophils % (Manual) Band Neutrophils % Lymphocytes % Lymphocytes % (Manual) Monocytes % Monocytes % (Manual) Eosinophils % Eosinophils % (Manual) Basophils % Basophils % (Manual) Myelocytes % (Man) Promyelocytes % (Man) Blast Cells % (Manual) Nucleated RBC % Metamyelocytes Hypochromia Toxic Granulation Platelet Estimate Platelet Comment Polychromasia Poikilocytosis Anisocytosis Microcytosis Macrocytosis Spherocytes Target Cells Tear Drop Cells Ovalocytes [place] Cells Schistocytes PT with INR INR PTT (Actin FS) Fibrinogen Puncture Site ABG pH ABG pCO2 at Pt Temp ABG pO2 at Pt Temp ABG HCO3 ABG O2 Sat (Measured) ABG O2 Content ABG Base Excess Atul Test O2 Delivery Device Oxygen Flow Rate Vent Mode Vent Rate PEEP Pressure Support Vent Sodium Potassium Chloride Carbon Dioxide Anion Gap BUN Creatinine Est GFR (CKD-EPI)AfAm Est GFR (CKD-EPI)NonAf POC Glucometer 117 150 142 Random Glucose Lactic Acid Calcium Phosphorus Magnesium Iron TIBC Iron Saturation Unsaturated IBC Ferritin Total Bilirubin AST ALT Alkaline Phosphatase Creatine Kinase Troponin I Total Protein Albumin Prealbumin Triglycerides Cholesterol Total LDL Cholesterol HDL Cholesterol Beta-Hydroxybutyrate Urine Color Urine Appearance Urine pH Ur Specific [place] Urine Protein Urine Glucose (UA) Urine Ketones Urine Blood Urine Nitrite Urine Bilirubin Urine Urobilinogen Ur Leukocyte Esterase Urine WBC (Auto) Urine RBC (Auto) U Epithel Cells (Auto) Urine Bacteria (Auto) Stool Occult Blood Acetone, Qual B-Hydroxybutyrate 04/02/19 04/02/19 04/02/19 05:30 05:32 06:00 WBC 11.0 H RBC 2.87 L Hgb 8.2 L Hct 24.6 L D MCV 85.7 MCH 28.6 MCHC 33.4 RDW 22.7 H Plt Count 594 H MPV 7.5 Absolute Neuts (auto) 8.3 H Total Counted Neutrophils % 75.5 Neutrophils % (Manual) Band Neutrophils % Lymphocytes % 17.6 D Lymphocytes % (Manual) Monocytes % 5.5 Monocytes % (Manual) Eosinophils % 0.7 D Eosinophils % (Manual) Basophils % 0.7 Basophils % (Manual) Myelocytes % (Man) Promyelocytes % (Man) Blast Cells % (Manual) Nucleated RBC % 0 Metamyelocytes Hypochromia Toxic Granulation Platelet Estimate Platelet Comment Polychromasia Poikilocytosis Anisocytosis Microcytosis Macrocytosis Spherocytes Target Cells Tear Drop Cells Ovalocytes [place] Cells Schistocytes PT with INR INR PTT (Actin FS) Fibrinogen Puncture Site ABG pH ABG pCO2 at Pt Temp ABG pO2 at Pt Temp ABG HCO3 ABG O2 Sat (Measured) ABG O2 Content ABG Base Excess Atul Test O2 Delivery Device Oxygen Flow Rate Vent Mode Vent Rate PEEP Pressure Support Vent Sodium 153 H Potassium 3.5 Chloride 120 H Carbon Dioxide 25 Anion Gap 9 BUN 22.1 H Creatinine 0.9 Est GFR (CKD-EPI)AfAm 87.02 Est GFR (CKD-EPI)NonAf 75.08 POC Glucometer 146 Random Glucose 152 H Lactic Acid Calcium 7.9 L Phosphorus Magnesium 2.2 Iron TIBC Iron Saturation Unsaturated IBC Ferritin Total Bilirubin 0.2 AST 22 ALT 14 Alkaline Phosphatase 151 H Creatine Kinase Troponin I Total Protein 5.5 L Albumin 1.7 L Prealbumin Triglycerides Cholesterol Total LDL Cholesterol HDL Cholesterol Beta-Hydroxybutyrate Urine Color Urine Appearance Urine pH Ur Specific [place] Urine Protein Urine Glucose (UA) Urine Ketones Urine Blood Urine Nitrite Urine Bilirubin Urine Urobilinogen Ur Leukocyte Esterase Urine WBC (Auto) Urine RBC (Auto) U Epithel Cells (Auto) Urine Bacteria (Auto) Stool Occult Blood Acetone, Qual B-Hydroxybutyrate 04/02/19 04/02/19 04/02/19 06:05 07:06 08:50 WBC RBC Hgb Hct MCV MCH MCHC RDW Plt Count MPV Absolute Neuts (auto) Total Counted Neutrophils % Neutrophils % (Manual) Band Neutrophils % Lymphocytes % Lymphocytes % (Manual) Monocytes % Monocytes % (Manual) Eosinophils % Eosinophils % (Manual) Basophils % Basophils % (Manual) Myelocytes % (Man) Promyelocytes % (Man) Blast Cells % (Manual) Nucleated RBC % Metamyelocytes Hypochromia Toxic Granulation Platelet Estimate Platelet Comment Polychromasia Poikilocytosis Anisocytosis Microcytosis Macrocytosis Spherocytes Target Cells Tear Drop Cells Ovalocytes [place] Cells Schistocytes PT with INR INR PTT (Actin FS) Fibrinogen Puncture Site Left radial ABG pH 7.40 ABG pCO2 at Pt Temp 39.5 ABG pO2 at Pt Temp 132 H ABG HCO3 24.2 ABG O2 Sat (Measured) 99.1 H ABG O2 Content 11.9 ABG Base Excess 0 Atul Test Positive O2 Delivery Device Mech vent Oxygen Flow Rate 50 Vent Mode A/c Vent Rate 14 PEEP 5.0 Pressure Support Vent 350 Sodium Potassium Chloride Carbon Dioxide Anion Gap BUN Creatinine Est GFR (CKD-EPI)AfAm Est GFR (CKD-EPI)NonAf POC Glucometer 219 150 Random Glucose Lactic Acid Calcium Phosphorus Magnesium Iron TIBC Iron Saturation Unsaturated IBC Ferritin Total Bilirubin AST ALT Alkaline Phosphatase Creatine Kinase Troponin I Total Protein Albumin Prealbumin Triglycerides Cholesterol Total LDL Cholesterol HDL Cholesterol Beta-Hydroxybutyrate Urine Color Urine Appearance Urine pH Ur Specific [place] Urine Protein Urine Glucose (UA) Urine Ketones Urine Blood Urine Nitrite Urine Bilirubin Urine Urobilinogen Ur Leukocyte Esterase Urine WBC (Auto) Urine RBC (Auto) U Epithel Cells (Auto) Urine Bacteria (Auto) Stool Occult Blood Acetone, Qual B-Hydroxybutyrate 04/02/19 04/02/19 04/02/19 10:30 14:47 15:48 WBC RBC Hgb Hct MCV MCH MCHC RDW Plt Count MPV Absolute Neuts (auto) Total Counted Neutrophils % Neutrophils % (Manual) Band Neutrophils % Lymphocytes % Lymphocytes % (Manual) Monocytes % Monocytes % (Manual) Eosinophils % Eosinophils % (Manual) Basophils % Basophils % (Manual) Myelocytes % (Man) Promyelocytes % (Man) Blast Cells % (Manual) Nucleated RBC % Metamyelocytes Hypochromia Toxic Granulation Platelet Estimate Platelet Comment Polychromasia Poikilocytosis Anisocytosis Microcytosis Macrocytosis Spherocytes Target Cells Tear Drop Cells Ovalocytes [place] Cells Schistocytes PT with INR INR PTT (Actin FS) Fibrinogen Puncture Site ABG pH ABG pCO2 at Pt Temp ABG pO2 at Pt Temp ABG HCO3 ABG O2 Sat (Measured) ABG O2 Content ABG Base Excess Atul Test O2 Delivery Device Oxygen Flow Rate Vent Mode Vent Rate PEEP Pressure Support Vent Sodium Potassium Chloride Carbon Dioxide Anion Gap BUN Creatinine Est GFR (CKD-EPI)AfAm Est GFR (CKD-EPI)NonAf POC Glucometer [phone] Random Glucose Lactic Acid Calcium Phosphorus Magnesium Iron TIBC Iron Saturation Unsaturated IBC Ferritin Total Bilirubin AST ALT Alkaline Phosphatase Creatine Kinase Troponin I Total Protein Albumin Prealbumin Triglycerides Cholesterol Total LDL Cholesterol HDL Cholesterol Beta-Hydroxybutyrate Urine Color Urine Appearance Urine pH Ur Specific [place] Urine Protein Urine Glucose (UA) Urine Ketones Urine Blood Urine Nitrite Urine Bilirubin Urine Urobilinogen Ur Leukocyte Esterase Urine WBC (Auto) Urine RBC (Auto) U Epithel Cells (Auto) Urine Bacteria (Auto) Stool Occult Blood Acetone, Qual B-Hydroxybutyrate 04/02/19 04/02/19 04/03/19 18:26 23:59 01:03 WBC RBC Hgb Hct MCV MCH MCHC RDW Plt Count MPV Absolute Neuts (auto) Total Counted Neutrophils % Neutrophils % (Manual) Band Neutrophils % Lymphocytes % Lymphocytes % (Manual) Monocytes % Monocytes % (Manual) Eosinophils % Eosinophils % (Manual) Basophils % Basophils % (Manual) Myelocytes % (Man) Promyelocytes % (Man) Blast Cells % (Manual) Nucleated RBC % Metamyelocytes Hypochromia Toxic Granulation Platelet Estimate Platelet Comment Polychromasia Poikilocytosis Anisocytosis Microcytosis Macrocytosis Spherocytes Target Cells Tear Drop Cells Ovalocytes [place] Cells Schistocytes PT with INR INR PTT (Actin FS) Fibrinogen Puncture Site ABG pH ABG pCO2 at Pt Temp ABG pO2 at Pt Temp ABG HCO3 ABG O2 Sat (Measured) ABG O2 Content ABG Base Excess Atul Test O2 Delivery Device Oxygen Flow Rate Vent Mode Vent Rate PEEP Pressure Support Vent Sodium Potassium Chloride Carbon Dioxide Anion Gap BUN Creatinine Est GFR (CKD-EPI)AfAm Est GFR (CKD-EPI)NonAf POC Glucometer [phone] Random Glucose Lactic Acid Calcium Phosphorus Magnesium Iron TIBC Iron Saturation Unsaturated IBC Ferritin Total Bilirubin AST ALT Alkaline Phosphatase Creatine Kinase Troponin I Total Protein Albumin Prealbumin Triglycerides Cholesterol Total LDL Cholesterol HDL Cholesterol Beta-Hydroxybutyrate Urine Color Urine Appearance Urine pH Ur Specific [place] Urine Protein Urine Glucose (UA) Urine Ketones Urine Blood Urine Nitrite Urine Bilirubin Urine Urobilinogen Ur Leukocyte Esterase Urine WBC (Auto) Urine RBC (Auto) U Epithel Cells (Auto) Urine Bacteria (Auto) Stool Occult Blood Acetone, Qual B-Hydroxybutyrate 04/03/19 04/03/19 04/03/19 02:52 05:00 05:00 WBC 9.5 RBC 2.87 L Hgb 8.2 L Hct 24.8 L MCV 86.3 MCH 28.7 MCHC 33.2 RDW 23.1 H Plt Count 550 H MPV 7.4 L Absolute Neuts (auto) 6.5 Total Counted Neutrophils % 67.9 Neutrophils % (Manual) Band Neutrophils % Lymphocytes % 22.9 D Lymphocytes % (Manual) Monocytes % 6.1 Monocytes % (Manual) Eosinophils % 2.3 D Eosinophils % (Manual) Basophils % 0.8 Basophils % (Manual) Myelocytes % (Man) Promyelocytes % (Man) Blast Cells % (Manual) Nucleated RBC % 0 Metamyelocytes Hypochromia 0 Toxic Granulation Platelet Estimate Increased Platelet Comment Polychromasia 0 Poikilocytosis 0 Anisocytosis 1+ Microcytosis 1+ Macrocytosis 1+ Spherocytes Target Cells 1+ Tear Drop Cells Ovalocytes 1+ [place] Cells Schistocytes PT with INR INR PTT (Actin FS) Fibrinogen Puncture Site ABG pH ABG pCO2 at Pt Temp ABG pO2 at Pt Temp ABG HCO3 ABG O2 Sat (Measured) ABG O2 Content ABG Base Excess Atul Test O2 Delivery Device Oxygen Flow Rate Vent Mode Vent Rate PEEP Pressure Support Vent Sodium 151 H Potassium 3.5 Chloride 116 H Carbon Dioxide 27 Anion Gap 7 L BUN 21.4 H Creatinine 0.6 Est GFR (CKD-EPI)AfAm 124.05 Est GFR (CKD-EPI)NonAf 107.03 POC Glucometer 112 Random Glucose 230 H Lactic Acid Calcium 7.8 L Phosphorus 1.9 L Magnesium 1.9 Iron TIBC Iron Saturation Unsaturated IBC Ferritin Total Bilirubin 0.3 AST 18 ALT 12 L Alkaline Phosphatase 138 H Creatine Kinase Troponin I Total Protein 5.3 L Albumin 1.8 L Prealbumin Triglycerides Cholesterol Total LDL Cholesterol HDL Cholesterol Beta-Hydroxybutyrate Urine Color Urine Appearance Urine pH Ur Specific [place] Urine Protein Urine Glucose (UA) Urine Ketones Urine Blood Urine Nitrite Urine Bilirubin Urine Urobilinogen Ur Leukocyte Esterase Urine WBC (Auto) Urine RBC (Auto) U Epithel Cells (Auto) Urine Bacteria (Auto) Stool Occult Blood Acetone, Qual B-Hydroxybutyrate 04/03/19 04/03/19 04/03/19 05:00 05:27 10:53 WBC RBC Hgb Hct MCV MCH MCHC RDW Plt Count MPV Absolute Neuts (auto) Total Counted Neutrophils % Neutrophils % (Manual) Band Neutrophils % Lymphocytes % Lymphocytes % (Manual) Monocytes % Monocytes % (Manual) Eosinophils % Eosinophils % (Manual) Basophils % Basophils % (Manual) Myelocytes % (Man) Promyelocytes % (Man) Blast Cells % (Manual) Nucleated RBC % Metamyelocytes Hypochromia Toxic Granulation Platelet Estimate Platelet Comment Polychromasia Poikilocytosis Anisocytosis Microcytosis Macrocytosis Spherocytes Target Cells Tear Drop Cells Ovalocytes [place] Cells Schistocytes PT with INR INR PTT (Actin FS) Fibrinogen Puncture Site ABG pH ABG pCO2 at Pt Temp ABG pO2 at Pt Temp ABG HCO3 ABG O2 Sat (Measured) ABG O2 Content ABG Base Excess Atul Test O2 Delivery Device Oxygen Flow Rate Vent Mode Vent Rate PEEP Pressure Support Vent Sodium Potassium Chloride Carbon Dioxide Anion Gap BUN Creatinine Est GFR (CKD-EPI)AfAm Est GFR (CKD-EPI)NonAf POC Glucometer [phone] Random Glucose Lactic Acid Calcium Phosphorus Magnesium Iron TIBC Iron Saturation Unsaturated IBC Ferritin Total Bilirubin AST ALT Alkaline Phosphatase Creatine Kinase Troponin I Total Protein Albumin Prealbumin Triglycerides Cholesterol Total LDL Cholesterol HDL Cholesterol Beta-Hydroxybutyrate Urine Color Yellow Urine Appearance Clear Urine pH 6.0 Ur Specific [place] 1.025 Urine Protein 2+ H Urine Glucose (UA) Negative Urine Ketones 1+ H Urine Blood Negative Urine Nitrite Negative Urine Bilirubin 1+ H Urine Urobilinogen 0.2 Ur Leukocyte Esterase Negative Urine WBC (Auto) 0-3 Urine RBC (Auto) 0-3 U Epithel Cells (Auto) 2-5 Urine Bacteria (Auto) Few Stool Occult Blood Acetone, Qual B-Hydroxybutyrate 04/03/19 04/03/19 04/03/19 14:01 17:22 22:23 WBC RBC Hgb Hct MCV MCH MCHC RDW Plt Count MPV Absolute Neuts (auto) Total Counted Neutrophils % Neutrophils % (Manual) Band Neutrophils % Lymphocytes % Lymphocytes % (Manual) Monocytes % Monocytes % (Manual) Eosinophils % Eosinophils % (Manual) Basophils % Basophils % (Manual) Myelocytes % (Man) Promyelocytes % (Man) Blast Cells % (Manual) Nucleated RBC % Metamyelocytes Hypochromia Toxic Granulation Platelet Estimate Platelet Comment Polychromasia Poikilocytosis Anisocytosis Microcytosis Macrocytosis Spherocytes Target Cells Tear Drop Cells Ovalocytes [place] Cells Schistocytes PT with INR INR PTT (Actin FS) Fibrinogen Puncture Site ABG pH ABG pCO2 at Pt Temp ABG pO2 at Pt Temp ABG HCO3 ABG O2 Sat (Measured) ABG O2 Content ABG Base Excess Atul Test O2 Delivery Device Oxygen Flow Rate Vent Mode Vent Rate PEEP Pressure Support Vent Sodium Potassium Chloride Carbon Dioxide Anion Gap BUN Creatinine Est GFR (CKD-EPI)AfAm Est GFR (CKD-EPI)NonAf POC Glucometer [phone] Random Glucose Lactic Acid Calcium Phosphorus Magnesium Iron TIBC Iron Saturation Unsaturated IBC Ferritin Total Bilirubin AST ALT Alkaline Phosphatase Creatine Kinase Troponin I Total Protein Albumin Prealbumin Triglycerides Cholesterol Total LDL Cholesterol HDL Cholesterol Beta-Hydroxybutyrate Urine Color Urine Appearance Urine pH Ur Specific [place] Urine Protein Urine Glucose (UA) Urine Ketones Urine Blood Urine Nitrite Urine Bilirubin Urine Urobilinogen Ur Leukocyte Esterase Urine WBC (Auto) Urine RBC (Auto) U Epithel Cells (Auto) Urine Bacteria (Auto) Stool Occult Blood Acetone, Qual B-Hydroxybutyrate 04/04/19 04/04/19 04/04/19 03:12 05:15 05:15 WBC 10.0 RBC 2.66 L Hgb 7.8 L Hct 22.9 L MCV 86.1 MCH 29.2 MCHC 34.0 RDW 23.1 H Plt Count 475 H MPV 7.5 Absolute Neuts (auto) 7.3 Total Counted Neutrophils % 73.2 Neutrophils % (Manual) Band Neutrophils % Lymphocytes % 18.0 D Lymphocytes % (Manual) Monocytes % 4.7 Monocytes % (Manual) Eosinophils % 3.3 Eosinophils % (Manual) Basophils % 0.8 Basophils % (Manual) Myelocytes % (Man) Promyelocytes % (Man) Blast Cells % (Manual) Nucleated RBC % 0 Metamyelocytes Hypochromia Toxic Granulation Platelet Estimate Platelet Comment Polychromasia Poikilocytosis Anisocytosis Microcytosis Macrocytosis Spherocytes Target Cells Tear Drop Cells Ovalocytes [place] Cells Schistocytes PT with INR INR PTT (Actin FS) Fibrinogen Puncture Site ABG pH ABG pCO2 at Pt Temp ABG pO2 at Pt Temp ABG HCO3 ABG O2 Sat (Measured) ABG O2 Content ABG Base Excess Atul Test O2 Delivery Device Oxygen Flow Rate Vent Mode Vent Rate PEEP Pressure Support Vent Sodium 149 H Potassium 3.1 L Chloride 112 H Carbon Dioxide 29 Anion Gap 8 BUN 18.4 H Creatinine 0.5 L Est GFR (CKD-EPI)AfAm 131.72 Est GFR (CKD-EPI)NonAf 113.65 POC Glucometer 202 Random Glucose 185 H Lactic Acid Calcium 7.5 L Phosphorus Magnesium 1.8 Iron TIBC Iron Saturation Unsaturated IBC Ferritin Total Bilirubin 0.2 AST 14 L ALT 11 L Alkaline Phosphatase 126 H Creatine Kinase Troponin I Total Protein 4.8 L Albumin 1.5 L Prealbumin Triglycerides Cholesterol Total LDL Cholesterol HDL Cholesterol Beta-Hydroxybutyrate Urine Color Urine Appearance Urine pH Ur Specific [place] Urine Protein Urine Glucose (UA) Urine Ketones Urine Blood Urine Nitrite Urine Bilirubin Urine Urobilinogen Ur Leukocyte Esterase Urine WBC (Auto) Urine RBC (Auto) U Epithel Cells (Auto) Urine Bacteria (Auto) Stool Occult Blood Acetone, Qual B-Hydroxybutyrate 04/04/19 04/04/19 04/04/19 07:57 11:16 15:05 WBC RBC Hgb Hct MCV MCH MCHC RDW Plt Count MPV Absolute Neuts (auto) Total Counted Neutrophils % Neutrophils % (Manual) Band Neutrophils % Lymphocytes % Lymphocytes % (Manual) Monocytes % Monocytes % (Manual) Eosinophils % Eosinophils % (Manual) Basophils % Basophils % (Manual) Myelocytes % (Man) Promyelocytes % (Man) Blast Cells % (Manual) Nucleated RBC % Metamyelocytes Hypochromia Toxic Granulation Platelet Estimate Platelet Comment Polychromasia Poikilocytosis Anisocytosis Microcytosis Macrocytosis Spherocytes Target Cells Tear Drop Cells Ovalocytes [place] Cells Schistocytes PT with INR INR PTT (Actin FS) Fibrinogen Puncture Site ABG pH ABG pCO2 at Pt Temp ABG pO2 at Pt Temp ABG HCO3 ABG O2 Sat (Measured) ABG O2 Content ABG Base Excess Atul Test O2 Delivery Device Oxygen Flow Rate Vent Mode Vent Rate PEEP Pressure Support Vent Sodium Potassium Chloride Carbon Dioxide Anion Gap BUN Creatinine Est GFR (CKD-EPI)AfAm Est GFR (CKD-EPI)NonAf POC Glucometer [phone] Random Glucose Lactic Acid Calcium Phosphorus Magnesium Iron TIBC Iron Saturation Unsaturated IBC Ferritin Total Bilirubin AST ALT Alkaline Phosphatase Creatine Kinase Troponin I Total Protein Albumin Prealbumin Triglycerides Cholesterol Total LDL Cholesterol HDL Cholesterol Beta-Hydroxybutyrate Urine Color Urine Appearance Urine pH Ur Specific [place] Urine Protein Urine Glucose (UA) Urine Ketones Urine Blood Urine Nitrite Urine Bilirubin Urine Urobilinogen Ur Leukocyte Esterase Urine WBC (Auto) Urine RBC (Auto) U Epithel Cells (Auto) Urine Bacteria (Auto) Stool Occult Blood Acetone, Qual B-Hydroxybutyrate 04/04/19 04/04/19 04/05/19 17:59 23:14 02:30 WBC RBC Hgb Hct MCV MCH MCHC RDW Plt Count MPV Absolute Neuts (auto) Total Counted Neutrophils % Neutrophils % (Manual) Band Neutrophils % Lymphocytes % Lymphocytes % (Manual) Monocytes % Monocytes % (Manual) Eosinophils % Eosinophils % (Manual) Basophils % Basophils % (Manual) Myelocytes % (Man) Promyelocytes % (Man) Blast Cells % (Manual) Nucleated RBC % Metamyelocytes Hypochromia Toxic Granulation Platelet Estimate Platelet Comment Polychromasia Poikilocytosis Anisocytosis Microcytosis Macrocytosis Spherocytes Target Cells Tear Drop Cells Ovalocytes [place] Cells Schistocytes PT with INR INR PTT (Actin FS) Fibrinogen Puncture Site ABG pH ABG pCO2 at Pt Temp ABG pO2 at Pt Temp ABG HCO3 ABG O2 Sat (Measured) ABG O2 Content ABG Base Excess Atul Test O2 Delivery Device Oxygen Flow Rate Vent Mode Vent Rate PEEP Pressure Support Vent Sodium Potassium Chloride Carbon Dioxide Anion Gap BUN Creatinine Est GFR (CKD-EPI)AfAm Est GFR (CKD-EPI)NonAf POC Glucometer [phone] Random Glucose Lactic Acid Calcium Phosphorus Magnesium Iron TIBC Iron Saturation Unsaturated IBC Ferritin Total Bilirubin AST ALT Alkaline Phosphatase Creatine Kinase Troponin I Total Protein Albumin Prealbumin Triglycerides Cholesterol Total LDL Cholesterol HDL Cholesterol Beta-Hydroxybutyrate Urine Color Urine Appearance Urine pH Ur Specific [place] Urine Protein Urine Glucose (UA) Urine Ketones Urine Blood Urine Nitrite Urine Bilirubin Urine Urobilinogen Ur Leukocyte Esterase Urine WBC (Auto) Urine RBC (Auto) U Epithel Cells (Auto) Urine Bacteria (Auto) Stool Occult Blood Acetone, Qual B-Hydroxybutyrate 04/05/19 04/05/19 04/05/19 05:50 10:05 11:06 WBC RBC Hgb Hct MCV MCH MCHC RDW Plt Count MPV Absolute Neuts (auto) Total Counted Neutrophils % Neutrophils % (Manual) Band Neutrophils % Lymphocytes % Lymphocytes % (Manual) Monocytes % Monocytes % (Manual) Eosinophils % Eosinophils % (Manual) Basophils % Basophils % (Manual) Myelocytes % (Man) Promyelocytes % (Man) Blast Cells % (Manual) Nucleated RBC % Metamyelocytes Hypochromia Toxic Granulation Platelet Estimate Platelet Comment Polychromasia Poikilocytosis Anisocytosis Microcytosis Macrocytosis Spherocytes Target Cells Tear Drop Cells Ovalocytes [place] Cells Schistocytes PT with INR INR PTT (Actin FS) Fibrinogen Puncture Site ABG pH ABG pCO2 at Pt Temp ABG pO2 at Pt Temp ABG HCO3 ABG O2 Sat (Measured) ABG O2 Content ABG Base Excess Atul Test O2 Delivery Device Oxygen Flow Rate Vent Mode Vent Rate PEEP Pressure Support Vent Sodium Potassium Chloride Carbon Dioxide Anion Gap BUN Creatinine Est GFR (CKD-EPI)AfAm Est GFR (CKD-EPI)NonAf POC Glucometer [phone] Random Glucose Lactic Acid Calcium Phosphorus Magnesium Iron TIBC Iron Saturation Unsaturated IBC Ferritin Total Bilirubin AST ALT Alkaline Phosphatase Creatine Kinase Troponin I Total Protein Albumin Prealbumin Triglycerides Cholesterol Total LDL Cholesterol HDL Cholesterol Beta-Hydroxybutyrate Urine Color Urine Appearance Urine pH Ur Specific [place] Urine Protein Urine Glucose (UA) Urine Ketones Urine Blood Urine Nitrite Urine Bilirubin Urine Urobilinogen Ur Leukocyte Esterase Urine WBC (Auto) Urine RBC (Auto) U Epithel Cells (Auto) Urine Bacteria (Auto) Stool Occult Blood Acetone, Qual B-Hydroxybutyrate 04/05/19 04/05/19 04/05/19 12:29 13:35 14:44 WBC RBC Hgb Hct MCV MCH MCHC RDW Plt Count MPV Absolute Neuts (auto) Total Counted Neutrophils % Neutrophils % (Manual) Band Neutrophils % Lymphocytes % Lymphocytes % (Manual) Monocytes % Monocytes % (Manual) Eosinophils % Eosinophils % (Manual) Basophils % Basophils % (Manual) Myelocytes % (Man) Promyelocytes % (Man) Blast Cells % (Manual) Nucleated RBC % Metamyelocytes Hypochromia Toxic Granulation Platelet Estimate Platelet Comment Polychromasia Poikilocytosis Anisocytosis Microcytosis Macrocytosis Spherocytes Target Cells Tear Drop Cells Ovalocytes [place] Cells Schistocytes PT with INR INR PTT (Actin FS) Fibrinogen Puncture Site ABG pH ABG pCO2 at Pt Temp ABG pO2 at Pt Temp ABG HCO3 ABG O2 Sat (Measured) ABG O2 Content ABG Base Excess Atul Test O2 Delivery Device Oxygen Flow Rate Vent Mode Vent Rate PEEP Pressure Support Vent Sodium Potassium Chloride Carbon Dioxide Anion Gap BUN Creatinine Est GFR (CKD-EPI)AfAm Est GFR (CKD-EPI)NonAf POC Glucometer [phone] Random Glucose Lactic Acid Calcium Phosphorus Magnesium Iron TIBC Iron Saturation Unsaturated IBC Ferritin Total Bilirubin AST ALT Alkaline Phosphatase Creatine Kinase Troponin I Total Protein Albumin Prealbumin Triglycerides Cholesterol Total LDL Cholesterol HDL Cholesterol Beta-Hydroxybutyrate Urine Color Urine Appearance Urine pH Ur Specific [place] Urine Protein Urine Glucose (UA) Urine Ketones Urine Blood Urine Nitrite Urine Bilirubin Urine Urobilinogen Ur Leukocyte Esterase Urine WBC (Auto) Urine RBC (Auto) U Epithel Cells (Auto) Urine Bacteria (Auto) Stool Occult Blood Acetone, Qual B-Hydroxybutyrate 04/05/19 04/05/19 04/05/19 15:52 17:06 21:18 WBC RBC Hgb Hct MCV MCH MCHC RDW Plt Count MPV Absolute Neuts (auto) Total Counted Neutrophils % Neutrophils % (Manual) Band Neutrophils % Lymphocytes % Lymphocytes % (Manual) Monocytes % Monocytes % (Manual) Eosinophils % Eosinophils % (Manual) Basophils % Basophils % (Manual) Myelocytes % (Man) Promyelocytes % (Man) Blast Cells % (Manual) Nucleated RBC % Metamyelocytes Hypochromia Toxic Granulation Platelet Estimate Platelet Comment Polychromasia Poikilocytosis Anisocytosis Microcytosis Macrocytosis Spherocytes Target Cells Tear Drop Cells Ovalocytes [place] Cells Schistocytes PT with INR INR PTT (Actin FS) Fibrinogen Puncture Site ABG pH ABG pCO2 at Pt Temp ABG pO2 at Pt Temp ABG HCO3 ABG O2 Sat (Measured) ABG O2 Content ABG Base Excess Atul Test O2 Delivery Device Oxygen Flow Rate Vent Mode Vent Rate PEEP Pressure Support Vent Sodium Potassium Chloride Carbon Dioxide Anion Gap BUN Creatinine Est GFR (CKD-EPI)AfAm Est GFR (CKD-EPI)NonAf POC Glucometer [phone] Random Glucose Lactic Acid Calcium Phosphorus Magnesium Iron TIBC Iron Saturation Unsaturated IBC Ferritin Total Bilirubin AST ALT Alkaline Phosphatase Creatine Kinase Troponin I Total Protein Albumin Prealbumin Triglycerides Cholesterol Total LDL Cholesterol HDL Cholesterol Beta-Hydroxybutyrate Urine Color Urine Appearance Urine pH Ur Specific [place] Urine Protein Urine Glucose (UA) Urine Ketones Urine Blood Urine Nitrite Urine Bilirubin Urine Urobilinogen Ur Leukocyte Esterase Urine WBC (Auto) Urine RBC (Auto) U Epithel Cells (Auto) Urine Bacteria (Auto) Stool Occult Blood Acetone, Qual B-Hydroxybutyrate 04/09/19 04/09/19 04/09/19 05:48 05:48 10:54 WBC RBC Hgb Hct MCV MCH MCHC RDW Plt Count MPV Absolute Neuts (auto) Total Counted Neutrophils % Neutrophils % (Manual) Band Neutrophils % Lymphocytes % Lymphocytes % (Manual) Monocytes % Monocytes % (Manual) Eosinophils % Eosinophils % (Manual) Basophils % Basophils % (Manual) Myelocytes % (Man) Promyelocytes % (Man) Blast Cells % (Manual) Nucleated RBC % Metamyelocytes Hypochromia Toxic Granulation Platelet Estimate Normal Platelet Comment Present Polychromasia Poikilocytosis Anisocytosis Microcytosis Macrocytosis Spherocytes Target Cells Tear Drop Cells Ovalocytes [place] Cells Schistocytes PT with INR INR PTT (Actin FS) Fibrinogen Puncture Site ABG pH ABG pCO2 at Pt Temp ABG pO2 at Pt Temp ABG HCO3 ABG O2 Sat (Measured) ABG O2 Content ABG Base Excess Atul Test O2 Delivery Device Oxygen Flow Rate Vent Mode Vent Rate PEEP Pressure Support Vent Sodium 139 Potassium 3.6 Chloride 104 Carbon Dioxide 28 Anion Gap 6 L BUN 7.1 Creatinine 0.3 L Est GFR (CKD-EPI)AfAm 155.82 Est GFR (CKD-EPI)NonAf 134.44 POC Glucometer 288 Random Glucose 348 H Lactic Acid Calcium 7.4 L Phosphorus Magnesium 1.7 L Iron TIBC Iron Saturation Unsaturated IBC Ferritin Total Bilirubin 0.3 AST 20 ALT 14 Alkaline Phosphatase 173 H Creatine Kinase Troponin I Total Protein 5.5 L Albumin 1.7 L Prealbumin Triglycerides 151 H Cholesterol 149 Total LDL Cholesterol 72 HDL Cholesterol 55 Beta-Hydroxybutyrate Urine Color Urine Appearance Urine pH Ur Specific [place] Urine Protein Urine Glucose (UA) Urine Ketones Urine Blood Urine Nitrite Urine Bilirubin Urine Urobilinogen Ur Leukocyte Esterase Urine WBC (Auto) Urine RBC (Auto) U Epithel Cells (Auto) Urine Bacteria (Auto) Stool Occult Blood Acetone, Qual B-Hydroxybutyrate 04/09/19 04/09/19 04/10/19 17:18 21:30 06:00 WBC 9.3 RBC 2.84 L Hgb 8.0 L Hct 24.8 L MCV 87.1 MCH 28.1 MCHC 32.3 RDW 23.6 H Plt Count 514 H MPV 8.3 Absolute Neuts (auto) 6.1 Total Counted Neutrophils % 66.0 Neutrophils % (Manual) Band Neutrophils % Lymphocytes % 21.3 Lymphocytes % (Manual) Monocytes % 11.5 H Monocytes % (Manual) Eosinophils % 0.8 D Eosinophils % (Manual) Basophils % 0.4 Basophils % (Manual) Myelocytes % (Man) Promyelocytes % (Man) Blast Cells % (Manual) Nucleated RBC % 0 Metamyelocytes Hypochromia Toxic Granulation Platelet Estimate Platelet Comment Polychromasia Poikilocytosis Anisocytosis Microcytosis Macrocytosis Spherocytes Target Cells Tear Drop Cells Ovalocytes [place] Cells Schistocytes PT with INR INR PTT (Actin FS) Fibrinogen Puncture Site ABG pH ABG pCO2 at Pt Temp ABG pO2 at Pt Temp ABG HCO3 ABG O2 Sat (Measured) ABG O2 Content ABG Base Excess Atul Test O2 Delivery Device Oxygen Flow Rate Vent Mode Vent Rate PEEP Pressure Support Vent Sodium Potassium Chloride Carbon Dioxide Anion Gap BUN Creatinine Est GFR (CKD-EPI)AfAm Est GFR (CKD-EPI)NonAf POC Glucometer [phone] Random Glucose Lactic Acid Calcium Phosphorus Magnesium Iron TIBC Iron Saturation Unsaturated IBC Ferritin Total Bilirubin AST ALT Alkaline Phosphatase Creatine Kinase Troponin I Total Protein Albumin Prealbumin Triglycerides Cholesterol Total LDL Cholesterol HDL Cholesterol Beta-Hydroxybutyrate Urine Color Urine Appearance Urine pH Ur Specific [place] Urine Protein Urine Glucose (UA) Urine Ketones Urine Blood Urine Nitrite Urine Bilirubin Urine Urobilinogen Ur Leukocyte Esterase Urine WBC (Auto) Urine RBC (Auto) U Epithel Cells (Auto) Urine Bacteria (Auto) Stool Occult Blood Acetone, Qual B-Hydroxybutyrate 04/10/19 04/10/19 06:00 07:35 WBC RBC Hgb Hct MCV MCH MCHC RDW Plt Count MPV Absolute Neuts (auto) Total Counted Neutrophils % Neutrophils % (Manual) Band Neutrophils % Lymphocytes % Lymphocytes % (Manual) Monocytes % Monocytes % (Manual) Eosinophils % Eosinophils % (Manual) Basophils % Basophils % (Manual) Myelocytes % (Man) Promyelocytes % (Man) Blast Cells % (Manual) Nucleated RBC % Metamyelocytes Hypochromia Toxic Granulation Platelet Estimate Platelet Comment Polychromasia Poikilocytosis Anisocytosis Microcytosis Macrocytosis Spherocytes Target Cells Tear Drop Cells Ovalocytes [place] Cells Schistocytes PT with INR INR PTT (Actin FS) Fibrinogen Puncture Site ABG pH ABG pCO2 at Pt Temp ABG pO2 at Pt Temp ABG HCO3 ABG O2 Sat (Measured) ABG O2 Content ABG Base Excess Atul Test O2 Delivery Device Oxygen Flow Rate Vent Mode Vent Rate PEEP Pressure Support Vent Sodium 138 Potassium 3.1 L Chloride 102 Carbon Dioxide 29 Anion Gap 7 L BUN 6.8 L Creatinine 0.3 L Est GFR (CKD-EPI)AfAm 155.82 Est GFR (CKD-EPI)NonAf 134.44 POC Glucometer 276 Random Glucose 225 H Lactic Acid Calcium 7.7 L Phosphorus Magnesium 1.7 L Iron TIBC Iron Saturation Unsaturated IBC Ferritin Total Bilirubin 0.3 AST 19 ALT 14 Alkaline Phosphatase 175 H Creatine Kinase Troponin I Total Protein 5.5 L Albumin 1.8 L Prealbumin Triglycerides Cholesterol Total LDL Cholesterol HDL Cholesterol Beta-Hydroxybutyrate Urine Color Urine Appearance Urine pH Ur Specific [place] Urine Protein Urine Glucose (UA) Urine Ketones Urine Blood Urine Nitrite Urine Bilirubin Urine Urobilinogen Ur Leukocyte Esterase Urine WBC (Auto) Urine RBC (Auto) U Epithel Cells (Auto) Urine Bacteria (Auto) Stool Occult Blood Acetone, Qual B-Hydroxybutyrate ASSESSMENT/PLAN: Subacute CVA R/O Sepsis: no clear source identified Type I IDDM PE (on Lovenox) Frequent admissions for DKA HTN HPL C-Diff CVA with left-sided weakness S/P Tracheostomy Follow Pending cultures ABX per ID AC for VTE AC Mode of vent Will need PEG BD TX Glycemic control At present she is hemodynamically and clinically stable for transfer to LT[facility] Dr Otero
[2019-04-10] MEDS ORDERED: POTASSIUM CHLORIDE 20 MEQ PREMIX IVPB 100 ML IVPB ONE (11:05)
--- NOTE | 2019-04-10 11:06 | PN ---
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 pt is awake alert but non verbal an not oriented. S.P trachea and pending placement for LTAC. OBJECTIVE: Vital Signs Period Temp Pulse Resp BP Sys/Rapp Pulse Ox Last 24 Hr 97.8 F-101.3 F 83-109 22-30 126-156/71-93 98-100 GENERAL: awake , open her eyes moves her head but non verbal and not oriented HEAD: Normal with no signs of trauma. EYES: PERRL, sclera anicteric, conjunctiva clear. No ptosis. ENT: Ears normal, nares patent, oropharynx clear without exudates, moist mucous membranes. NECK: Trach in place. LUNGS: Vented. HEART: Regular rate and rhythm, S1, S2 without murmur, rub or gallop. ABDOMEN: Soft, wound vac in place. Incision clean/dry, no purulent drainage or bleeding. Non distended. EXTREMITIES: 2+ pulses, warm, well-perfused, 2+ pitting edema upper/lower extremities. NEUROLOGICAL: Moving all extremities. Non-verbal. Otherwise unable to assess. SKIN: Warm, dry, normal turgor, no rashes or lesions noted Laboratory Results - last 24 hr 03/17/19 03/17/19 03/17/19 05:20 05:20 05:20 WBC 16.2 H RBC 3.60 Hgb 8.7 L Hct 27.2 L MCV 75.4 L MCH 24.0 L MCHC 31.9 L RDW 24.5 H Plt Count 150 D MPV 9.4 Absolute Neuts (auto) 14.6 H Total Counted Neutrophils % 89.6 H Neutrophils % (Manual) 94.0 H Band Neutrophils % 3.0 Lymphocytes % 8.4 D Lymphocytes % (Manual) 2.0 L D Monocytes % 1.6 L Monocytes % (Manual) 0 L D Eosinophils % 0.3 D Eosinophils % (Manual) 0.0 D Basophils % 0.1 Basophils % (Manual) 0.0 Myelocytes % (Man) 0 D Promyelocytes % (Man) 0 Blast Cells % (Manual) 0 Nucleated RBC % 1 H Metamyelocytes 0 Hypochromia 1+ Toxic Granulation Platelet Estimate Decreased Platelet Comment Polychromasia 0 Poikilocytosis 1+ Anisocytosis 1+ Microcytosis 1+ Macrocytosis 0 Spherocytes Target Cells 1+ Tear Drop Cells Ovalocytes 1+ Thornton Cells Schistocytes PT with INR INR PTT (Actin FS) 24.9 L Fibrinogen Puncture Site ABG pH ABG pCO2 at Pt Temp ABG pO2 at Pt Temp ABG HCO3 ABG O2 Sat (Measured) ABG O2 Content ABG Base Excess Atul Test O2 Delivery Device Oxygen Flow Rate Vent Mode Vent Rate PEEP Pressure Support Vent Sodium 141 Potassium 3.8 Chloride 109 H Carbon Dioxide 22 Anion Gap 10 BUN 13.0 Creatinine 0.4 L Est GFR (CKD-EPI)AfAm 141.75 Est GFR (CKD-EPI)NonAf 122.30 POC Glucometer Random Glucose 244 H Lactic Acid Calcium 6.4 L* Phosphorus 1.0 L* Magnesium 1.8 Iron TIBC Iron Saturation Unsaturated IBC Ferritin Total Bilirubin 0.3 AST 24 ALT 10 L Alkaline Phosphatase 145 H Creatine Kinase Troponin I Total Protein 4.0 L Albumin 1.2 L Prealbumin Triglycerides Cholesterol Total LDL Cholesterol HDL Cholesterol Beta-Hydroxybutyrate Urine Color Urine Appearance Urine pH Ur Specific Downing Urine Protein Urine Glucose (UA) Urine Ketones Urine Blood Urine Nitrite Urine Bilirubin Urine Urobilinogen Ur Leukocyte Esterase Urine WBC (Auto) Urine RBC (Auto) U Epithel Cells (Auto) Urine Bacteria (Auto) Stool Occult Blood Acetone, Qual B-Hydroxybutyrate 03/17/19 03/17/19 03/17/19 05:29 12:19 17:43 WBC RBC Hgb Hct MCV MCH MCHC RDW Plt Count MPV Absolute Neuts (auto) Total Counted Neutrophils % Neutrophils % (Manual) Band Neutrophils % Lymphocytes % Lymphocytes % (Manual) Monocytes % Monocytes % (Manual) Eosinophils % Eosinophils % (Manual) Basophils % Basophils % (Manual) Myelocytes % (Man) Promyelocytes % (Man) Blast Cells % (Manual) Nucleated RBC % Metamyelocytes Hypochromia Toxic Granulation Platelet Estimate Platelet Comment Polychromasia Poikilocytosis Anisocytosis Microcytosis Macrocytosis Spherocytes Target Cells Tear Drop Cells Ovalocytes Thornton Cells Schistocytes PT with INR INR PTT (Actin FS) Fibrinogen Puncture Site ABG pH ABG pCO2 at Pt Temp ABG pO2 at Pt Temp ABG HCO3 ABG O2 Sat (Measured) ABG O2 Content ABG Base Excess Atul Test O2 Delivery Device Oxygen Flow Rate Vent Mode Vent Rate PEEP Pressure Support Vent Sodium Potassium Chloride Carbon Dioxide Anion Gap BUN Creatinine Est GFR (CKD-EPI)AfAm Est GFR (CKD-EPI)NonAf POC Glucometer 229 156 168 Random Glucose Lactic Acid Calcium Phosphorus Magnesium Iron TIBC Iron Saturation Unsaturated IBC Ferritin Total Bilirubin AST ALT Alkaline Phosphatase Creatine Kinase Troponin I Total Protein Albumin Prealbumin Triglycerides Cholesterol Total LDL Cholesterol HDL Cholesterol Beta-Hydroxybutyrate Urine Color Urine Appearance Urine pH Ur Specific Downing Urine Protein Urine Glucose (UA) Urine Ketones Urine Blood Urine Nitrite Urine Bilirubin Urine Urobilinogen Ur Leukocyte Esterase Urine WBC (Auto) Urine RBC (Auto) U Epithel Cells (Auto) Urine Bacteria (Auto) Stool Occult Blood Acetone, Qual B-Hydroxybutyrate 03/17/19 03/18/19 03/18/19 21:43 05:30 05:30 WBC 7.8 RBC 3.66 Hgb 9.0 L Hct 27.7 L MCV 75.6 L MCH 24.5 L MCHC 32.4 RDW 24.3 H Plt Count 114 L D MPV 9.5 Absolute Neuts (auto) 6.2 Total Counted Neutrophils % 79.9 Neutrophils % (Manual) 76.0 Band Neutrophils % 5.0 Lymphocytes % 16.8 D Lymphocytes % (Manual) 12.0 D Monocytes % 1.8 L Monocytes % (Manual) 0 L Eosinophils % 1.2 D Eosinophils % (Manual) 2.0 D Basophils % 0.3 Basophils % (Manual) 0.0 Myelocytes % (Man) 0 Promyelocytes % (Man) 0 Blast Cells % (Manual) 0 Nucleated RBC % 0 Metamyelocytes 1 D Hypochromia 1+ Toxic Granulation 2+ Platelet Estimate Decreased Platelet Comment Present Polychromasia 1+ Poikilocytosis 1+ Anisocytosis 2+ Microcytosis 1+ Macrocytosis 0 Spherocytes 1+ Target Cells 1+ Tear Drop Cells 1+ Ovalocytes Jose Antonio Cells 1+ Schistocytes PT with INR INR PTT (Actin FS) 27.1 Fibrinogen Puncture Site ABG pH ABG pCO2 at Pt Temp ABG pO2 at Pt Temp ABG HCO3 ABG O2 Sat (Measured) ABG O2 Content ABG Base Excess Atul Test O2 Delivery Device Oxygen Flow Rate Vent Mode Vent Rate PEEP Pressure Support Vent Sodium Potassium Chloride Carbon Dioxide Anion Gap BUN Creatinine Est GFR (CKD-EPI)AfAm Est GFR (CKD-EPI)NonAf POC Glucometer 89 Random Glucose Lactic Acid Calcium Phosphorus Magnesium Iron TIBC Iron Saturation Unsaturated IBC Ferritin Total Bilirubin AST ALT Alkaline Phosphatase Creatine Kinase Troponin I Total Protein Albumin Prealbumin Triglycerides Cholesterol Total LDL Cholesterol HDL Cholesterol Beta-Hydroxybutyrate Urine Color Urine Appearance Urine pH Ur Specific Downing Urine Protein Urine Glucose (UA) Urine Ketones Urine Blood Urine Nitrite Urine Bilirubin Urine Urobilinogen Ur Leukocyte Esterase Urine WBC (Auto) Urine RBC (Auto) U Epithel Cells (Auto) Urine Bacteria (Auto) Stool Occult Blood Acetone, Qual B-Hydroxybutyrate 03/18/19 03/18/19 03/18/19 05:30 05:42 10:53 WBC RBC Hgb Hct MCV MCH MCHC RDW Plt Count MPV Absolute Neuts (auto) Total Counted Neutrophils % Neutrophils % (Manual) Band Neutrophils % Lymphocytes % Lymphocytes % (Manual) Monocytes % Monocytes % (Manual) Eosinophils % Eosinophils % (Manual) Basophils % Basophils % (Manual) Myelocytes % (Man) Promyelocytes % (Man) Blast Cells % (Manual) Nucleated RBC % Metamyelocytes Hypochromia Toxic Granulation Platelet Estimate Platelet Comment Polychromasia Poikilocytosis Anisocytosis Microcytosis Macrocytosis Spherocytes Target Cells Tear Drop Cells Ovalocytes Jose Antonio Cells Schistocytes PT with INR INR PTT (Actin FS) Fibrinogen Puncture Site ABG pH ABG pCO2 at Pt Temp ABG pO2 at Pt Temp ABG HCO3 ABG O2 Sat (Measured) ABG O2 Content ABG Base Excess Atul Test O2 Delivery Device Oxygen Flow Rate Vent Mode Vent Rate PEEP Pressure Support Vent Sodium 143 Potassium 3.1 L Chloride 107 Carbon Dioxide 24 Anion Gap 11 BUN 9.0 Creatinine 0.4 L Est GFR (CKD-EPI)AfAm 141.75 Est GFR (CKD-EPI)NonAf 122.30 POC Glucometer 201 169 Random Glucose 218 H Lactic Acid Calcium 6.5 L* Phosphorus 1.6 L Magnesium 1.5 L Iron TIBC Iron Saturation Unsaturated IBC Ferritin Total Bilirubin 0.5 AST 28 ALT 8 L Alkaline Phosphatase 276 H Creatine Kinase Troponin I Total Protein 3.9 L Albumin 1.2 L Prealbumin Triglycerides Cholesterol Total LDL Cholesterol HDL Cholesterol Beta-Hydroxybutyrate Urine Color Urine Appearance Urine pH Ur Specific Downing Urine Protein Urine Glucose (UA) Urine Ketones Urine Blood Urine Nitrite Urine Bilirubin Urine Urobilinogen Ur Leukocyte Esterase Urine WBC (Auto) Urine RBC (Auto) U Epithel Cells (Auto) Urine Bacteria (Auto) Stool Occult Blood Acetone, Qual B-Hydroxybutyrate 03/18/19 03/18/19 03/18/19 17:00 17:14 23:04 WBC RBC Hgb Hct MCV MCH MCHC RDW Plt Count MPV Absolute Neuts (auto) Total Counted Neutrophils % Neutrophils % (Manual) Band Neutrophils % Lymphocytes % Lymphocytes % (Manual) Monocytes % Monocytes % (Manual) Eosinophils % Eosinophils % (Manual) Basophils % Basophils % (Manual) Myelocytes % (Man) Promyelocytes % (Man) Blast Cells % (Manual) Nucleated RBC % Metamyelocytes Hypochromia Toxic Granulation Platelet Estimate Platelet Comment Polychromasia Poikilocytosis Anisocytosis Microcytosis Macrocytosis Spherocytes Target Cells Tear Drop Cells Ovalocytes Jose Antonio Cells Schistocytes PT with INR INR PTT (Actin FS) Fibrinogen Puncture Site ABG pH ABG pCO2 at Pt Temp ABG pO2 at Pt Temp ABG HCO3 ABG O2 Sat (Measured) ABG O2 Content ABG Base Excess Atul Test O2 Delivery Device Oxygen Flow Rate Vent Mode Vent Rate PEEP Pressure Support Vent Sodium 145 Potassium 3.0 L Chloride 107 Carbon Dioxide 19 L Anion Gap 18 H BUN 6.8 L Creatinine 0.3 L Est GFR (CKD-EPI)AfAm 155.82 Est GFR (CKD-EPI)NonAf 134.44 POC Glucometer 299 185 Random Glucose 303 H Lactic Acid Calcium 6.7 L* Phosphorus 3.5 Magnesium 2.0 Iron TIBC Iron Saturation Unsaturated IBC Ferritin Total Bilirubin AST ALT Alkaline Phosphatase Creatine Kinase Troponin I Total Protein Albumin Prealbumin Triglycerides Cholesterol Total LDL Cholesterol HDL Cholesterol Beta-Hydroxybutyrate Urine Color Urine Appearance Urine pH Ur Specific Downing Urine Protein Urine Glucose (UA) Urine Ketones Urine Blood Urine Nitrite Urine Bilirubin Urine Urobilinogen Ur Leukocyte Esterase Urine WBC (Auto) Urine RBC (Auto) U Epithel Cells (Auto) Urine Bacteria (Auto) Stool Occult Blood Acetone, Qual B-Hydroxybutyrate 03/19/19 03/19/19 03/19/19 05:00 05:00 05:00 WBC 8.0 RBC 3.37 L Hgb 8.3 L Hct 25.8 L MCV 76.5 L MCH 24.7 L MCHC 32.3 RDW 24.0 H Plt Count 94 L MPV 10.2 Absolute Neuts (auto) 6.9 Total Counted Neutrophils % 87.4 H Neutrophils % (Manual) 81.6 Band Neutrophils % 0.0 Lymphocytes % 9.3 D Lymphocytes % (Manual) 10.2 Monocytes % 1.8 L Monocytes % (Manual) 2 L D Eosinophils % 0.8 Eosinophils % (Manual) 2.1 Basophils % 0.7 Basophils % (Manual) 0.0 Myelocytes % (Man) 0 Promyelocytes % (Man) 0 Blast Cells % (Manual) 0 Nucleated RBC % 0 Metamyelocytes 3 H D Hypochromia 0 Toxic Granulation Platelet Estimate Decreased Platelet Comment Polychromasia 1+ Poikilocytosis 2+ Anisocytosis 1+ Microcytosis 1+ Macrocytosis 0 Spherocytes Target Cells Tear Drop Cells Ovalocytes 1+ Thornton Cells Schistocytes 1+ PT with INR INR PTT (Actin FS) 30.7 Fibrinogen Puncture Site ABG pH ABG pCO2 at Pt Temp ABG pO2 at Pt Temp ABG HCO3 ABG O2 Sat (Measured) ABG O2 Content ABG Base Excess Atul Test O2 Delivery Device Oxygen Flow Rate Vent Mode Vent Rate PEEP Pressure Support Vent Sodium 144 Potassium 2.7 L* Chloride 106 Carbon Dioxide 19 L Anion Gap 18 H BUN 6.8 L Creatinine 0.4 L Est GFR (CKD-EPI)AfAm 141.75 Est GFR (CKD-EPI)NonAf 122.30 POC Glucometer Random Glucose 335 H Lactic Acid Calcium 6.5 L* Phosphorus 1.7 L Magnesium 1.7 L Iron TIBC Iron Saturation Unsaturated IBC Ferritin Total Bilirubin 0.4 AST 34 ALT 10 L Alkaline Phosphatase 363 H Creatine Kinase Troponin I Total Protein 4.1 L Albumin 1.2 L Prealbumin Triglycerides Cholesterol Total LDL Cholesterol HDL Cholesterol Beta-Hydroxybutyrate Urine Color Urine Appearance Urine pH Ur Specific Downing Urine Protein Urine Glucose (UA) Urine Ketones Urine Blood Urine Nitrite Urine Bilirubin Urine Urobilinogen Ur Leukocyte Esterase Urine WBC (Auto) Urine RBC (Auto) U Epithel Cells (Auto) Urine Bacteria (Auto) Stool Occult Blood Acetone, Qual B-Hydroxybutyrate 03/19/19 03/19/19 03/19/19 05:00 05:26 06:20 WBC 8.9 RBC 3.78 Hgb 9.1 L Hct 30.8 L D MCV 81.4 MCH 24.1 L MCHC 29.6 L RDW 24.5 H Plt Count 87 L MPV 9.8 Absolute Neuts (auto) Total Counted Neutrophils % Neutrophils % (Manual) Band Neutrophils % Lymphocytes % Lymphocytes % (Manual) Monocytes % Monocytes % (Manual) Eosinophils % Eosinophils % (Manual) Basophils % Basophils % (Manual) Myelocytes % (Man) Promyelocytes % (Man) Blast Cells % (Manual) Nucleated RBC % Metamyelocytes Hypochromia Toxic Granulation Platelet Estimate Platelet Comment Polychromasia Poikilocytosis Anisocytosis Microcytosis Macrocytosis Spherocytes Target Cells Tear Drop Cells Ovalocytes Jose Antonio Cells Schistocytes PT with INR INR PTT (Actin FS) Fibrinogen Puncture Site ABG pH ABG pCO2 at Pt Temp ABG pO2 at Pt Temp ABG HCO3 ABG O2 Sat (Measured) ABG O2 Content ABG Base Excess Atul Test O2 Delivery Device Oxygen Flow Rate Vent Mode Vent Rate PEEP Pressure Support Vent Sodium Potassium Chloride Carbon Dioxide Anion Gap BUN Creatinine Est GFR (CKD-EPI)AfAm Est GFR (CKD-EPI)NonAf POC Glucometer 332 Random Glucose Lactic Acid Calcium Phosphorus Magnesium Iron TIBC Iron Saturation Unsaturated IBC Ferritin Total Bilirubin AST ALT Alkaline Phosphatase Creatine Kinase Troponin I Total Protein Albumin Prealbumin 7.0 L Triglycerides Cholesterol Total LDL Cholesterol HDL Cholesterol Beta-Hydroxybutyrate Urine Color Urine Appearance Urine pH Ur Specific Downing Urine Protein Urine Glucose (UA) Urine Ketones Urine Blood Urine Nitrite Urine Bilirubin Urine Urobilinogen Ur Leukocyte Esterase Urine WBC (Auto) Urine RBC (Auto) U Epithel Cells (Auto) Urine Bacteria (Auto) Stool Occult Blood Acetone, Qual B-Hydroxybutyrate 03/19/19 03/19/19 03/19/19 06:20 06:20 06:20 WBC RBC Hgb Hct MCV MCH MCHC RDW Plt Count MPV Absolute Neuts (auto) Total Counted Neutrophils % Neutrophils % (Manual) Band Neutrophils % Lymphocytes % Lymphocytes % (Manual) Monocytes % Monocytes % (Manual) Eosinophils % Eosinophils % (Manual) Basophils % Basophils % (Manual) Myelocytes % (Man) Promyelocytes % (Man) Blast Cells % (Manual) Nucleated RBC % Metamyelocytes Hypochromia Toxic Granulation Platelet Estimate Platelet Comment Polychromasia Poikilocytosis Anisocytosis Microcytosis Macrocytosis Spherocytes Target Cells Tear Drop Cells Ovalocytes Thornton Cells Schistocytes PT with INR INR PTT (Actin FS) Fibrinogen Puncture Site ABG pH ABG pCO2 at Pt Temp ABG pO2 at Pt Temp ABG HCO3 ABG O2 Sat (Measured) ABG O2 Content ABG Base Excess Atul Test O2 Delivery Device Oxygen Flow Rate Vent Mode Vent Rate PEEP Pressure Support Vent Sodium 146 H Potassium 2.9 L* Chloride 106 Carbon Dioxide 16 L Anion Gap 24 H BUN 7.8 Creatinine 0.7 Est GFR (CKD-EPI)AfAm 117.91 Est GFR (CKD-EPI)NonAf 101.74 POC Glucometer Random Glucose 371 H Lactic Acid 8.1 H* Calcium 7.0 L Phosphorus Magnesium 2.3 Iron TIBC Iron Saturation Unsaturated IBC Ferritin Total Bilirubin AST ALT Alkaline Phosphatase Creatine Kinase 71 Troponin I 0.53 H Total Protein Albumin Prealbumin Triglycerides Cholesterol Total LDL Cholesterol HDL Cholesterol Beta-Hydroxybutyrate Urine Color Urine Appearance Urine pH Ur Specific Downing Urine Protein Urine Glucose (UA) Urine Ketones Urine Blood Urine Nitrite Urine Bilirubin Urine Urobilinogen Ur Leukocyte Esterase Urine WBC (Auto) Urine RBC (Auto) U Epithel Cells (Auto) Urine Bacteria (Auto) Stool Occult Blood Acetone, Qual B-Hydroxybutyrate 03/19/19 03/19/19 03/19/19 06:22 06:40 06:40 WBC RBC Hgb Hct MCV MCH MCHC RDW Plt Count MPV Absolute Neuts (auto) Total Counted Neutrophils % Neutrophils % (Manual) Band Neutrophils % Lymphocytes % Lymphocytes % (Manual) Monocytes % Monocytes % (Manual) Eosinophils % Eosinophils % (Manual) Basophils % Basophils % (Manual) Myelocytes % (Man) Promyelocytes % (Man) Blast Cells % (Manual) Nucleated RBC % Metamyelocytes Hypochromia Toxic Granulation Platelet Estimate Platelet Comment Polychromasia Poikilocytosis Anisocytosis Microcytosis Macrocytosis Spherocytes Target Cells Tear Drop Cells Ovalocytes Thornton Cells Schistocytes PT with INR INR PTT (Actin FS) Fibrinogen Puncture Site Right radial Right radial ABG pH 7.12 L* 7.04 L* ABG pCO2 at Pt Temp 57.3 H 58.1 H ABG pO2 at Pt Temp 131 H 67.5 L ABG HCO3 17.8 L 15.0 L ABG O2 Sat (Measured) 96.9 78.5 L ABG O2 Content 12.4 10.7 ABG Base Excess -11.0 L -15.1 L Atul Test Positive Positive O2 Delivery Device Oxygen Flow Rate 100 100% Vent Mode Vol/ac A/c Vent Rate 14 14 PEEP 5.0 5.0 Pressure Support Vent 400 400 Sodium Potassium Chloride Carbon Dioxide Anion Gap BUN Creatinine Est GFR (CKD-EPI)AfAm Est GFR (CKD-EPI)NonAf POC Glucometer 312 Random Glucose Lactic Acid Calcium Phosphorus Magnesium Iron TIBC Iron Saturation Unsaturated IBC Ferritin Total Bilirubin AST ALT Alkaline Phosphatase Creatine Kinase Troponin I Total Protein Albumin Prealbumin Triglycerides Cholesterol Total LDL Cholesterol HDL Cholesterol Beta-Hydroxybutyrate Urine Color Urine Appearance Urine pH Ur Specific Downing Urine Protein Urine Glucose (UA) Urine Ketones Urine Blood Urine Nitrite Urine Bilirubin Urine Urobilinogen Ur Leukocyte Esterase Urine WBC (Auto) Urine RBC (Auto) U Epithel Cells (Auto) Urine Bacteria (Auto) Stool Occult Blood Acetone, Qual B-Hydroxybutyrate 03/19/19 03/19/19 03/19/19 09:11 10:41 15:30 WBC RBC Hgb Hct MCV MCH MCHC RDW Plt Count MPV Absolute Neuts (auto) Total Counted Neutrophils % Neutrophils % (Manual) Band Neutrophils % Lymphocytes % Lymphocytes % (Manual) Monocytes % Monocytes % (Manual) Eosinophils % Eosinophils % (Manual) Basophils % Basophils % (Manual) Myelocytes % (Man) Promyelocytes % (Man) Blast Cells % (Manual) Nucleated RBC % Metamyelocytes Hypochromia Toxic Granulation Platelet Estimate Platelet Comment Polychromasia Poikilocytosis Anisocytosis Microcytosis Macrocytosis Spherocytes Target Cells Tear Drop Cells Ovalocytes Thornton Cells Schistocytes PT with INR INR PTT (Actin FS) Fibrinogen Puncture Site Right radial ABG pH 7.23 L ABG pCO2 at Pt Temp 54.7 H ABG pO2 at Pt Temp 86.4 ABG HCO3 21.9 L ABG O2 Sat (Measured) 93.7 L ABG O2 Content 11.6 ABG Base Excess -5.2 L Atul Test Positive O2 Delivery Device Oxygen Flow Rate 100 Vent Mode Vol/ac Vent Rate 14 PEEP 5.0 Pressure Support Vent 400 Sodium Potassium Chloride Carbon Dioxide Anion Gap BUN Creatinine Est GFR (CKD-EPI)AfAm Est GFR (CKD-EPI)NonAf POC Glucometer 303 Random Glucose Lactic Acid 2.3 H* Calcium Phosphorus Magnesium Iron TIBC Iron Saturation Unsaturated IBC Ferritin Total Bilirubin AST ALT Alkaline Phosphatase Creatine Kinase Troponin I Total Protein Albumin Prealbumin Triglycerides Cholesterol Total LDL Cholesterol HDL Cholesterol Beta-Hydroxybutyrate Urine Color Urine Appearance Urine pH Ur Specific Downing Urine Protein Urine Glucose (UA) Urine Ketones Urine Blood Urine Nitrite Urine Bilirubin Urine Urobilinogen Ur Leukocyte Esterase Urine WBC (Auto) Urine RBC (Auto) U Epithel Cells (Auto) Urine Bacteria (Auto) Stool Occult Blood Acetone, Qual B-Hydroxybutyrate 03/19/19 03/19/19 03/19/19 15:40 15:40 17:26 WBC 11.7 H RBC 3.31 L Hgb 7.9 L Hct 25.2 L D MCV 76.1 L MCH 23.8 L MCHC 31.3 L RDW 24.4 H Plt Count 125 L D MPV 9.9 Absolute Neuts (auto) 10.7 H Total Counted 100 Neutrophils % 92.1 H Neutrophils % (Manual) 77.0 Band Neutrophils % 3.0 Lymphocytes % 5.8 L D Lymphocytes % (Manual) 14.0 D Monocytes % 2.0 L Monocytes % (Manual) 3 L Eosinophils % 0.0 D Eosinophils % (Manual) Basophils % 0.1 Basophils % (Manual) Myelocytes % (Man) 3 H D Promyelocytes % (Man) Blast Cells % (Manual) Nucleated RBC % 1 H Metamyelocytes Hypochromia 1+ Toxic Granulation Platelet Estimate Adequate Platelet Comment Polychromasia Poikilocytosis Anisocytosis 3+ Microcytosis Macrocytosis Spherocytes Target Cells Tear Drop Cells Ovalocytes Thornton Cells Schistocytes 1+ PT with INR INR PTT (Actin FS) Fibrinogen Puncture Site ABG pH ABG pCO2 at Pt Temp ABG pO2 at Pt Temp ABG HCO3 ABG O2 Sat (Measured) ABG O2 Content ABG Base Excess Atul Test O2 Delivery Device Oxygen Flow Rate Vent Mode Vent Rate PEEP Pressure Support Vent Sodium 146 H Potassium 2.9 L* Chloride 107 Carbon Dioxide 29 Anion Gap 10 BUN 6.9 L Creatinine 0.7 Est GFR (CKD-EPI)AfAm 117.91 Est GFR (CKD-EPI)NonAf 101.74 POC Glucometer 315 Random Glucose 293 H Lactic Acid Calcium 6.9 L* Phosphorus Magnesium 1.8 Iron TIBC Iron Saturation Unsaturated IBC Ferritin Total Bilirubin 0.4 AST 49 H ALT 17 Alkaline Phosphatase 586 H Creatine Kinase 109 Troponin I 1.01 H* Total Protein 4.5 L Albumin 1.3 L Prealbumin Triglycerides Cholesterol Total LDL Cholesterol HDL Cholesterol Beta-Hydroxybutyrate Urine Color Urine Appearance Urine pH Ur Specific Downing Urine Protein Urine Glucose (UA) Urine Ketones Urine Blood Urine Nitrite Urine Bilirubin Urine Urobilinogen Ur Leukocyte Esterase Urine WBC (Auto) Urine RBC (Auto) U Epithel Cells (Auto) Urine Bacteria (Auto) Stool Occult Blood Acetone, Qual B-Hydroxybutyrate 03/19/19 03/19/19 03/19/19 21:35 21:35 21:45 WBC 8.1 RBC 2.86 L Hgb 6.9 L* Hct 21.4 L D MCV 75.0 L MCH 24.0 L MCHC 32.0 RDW 24.0 H Plt Count 92 L D MPV 9.7 Absolute Neuts (auto) 6.9 Total Counted 100 Neutrophils % 85.0 H Neutrophils % (Manual) 74.0 Band Neutrophils % 7.0 Lymphocytes % 12.1 D Lymphocytes % (Manual) 12.0 Monocytes % 2.7 L Monocytes % (Manual) 4 Eosinophils % 0.1 D Eosinophils % (Manual) Basophils % 0.1 Basophils % (Manual) Myelocytes % (Man) 1 D Promyelocytes % (Man) Blast Cells % (Manual) Nucleated RBC % 1 H Metamyelocytes 1 D Hypochromia 2+ Toxic Granulation Platelet Estimate Decreased Platelet Comment Polychromasia 1+ Poikilocytosis Anisocytosis 2+ Microcytosis Macrocytosis Spherocytes Target Cells Tear Drop Cells Ovalocytes Jose Antonio Cells Schistocytes PT with INR INR PTT (Actin FS) Fibrinogen Puncture Site Right radial ABG pH 7.48 H ABG pCO2 at Pt Temp 40.8 ABG pO2 at Pt Temp 264 H ABG HCO3 29.9 H ABG O2 Sat (Measured) 99.8 H ABG O2 Content 10.1 ABG Base Excess 6.2 H Atul Test Positive O2 Delivery Device Ventilater Oxygen Flow Rate 80% Vent Mode Vent Rate 14 PEEP 5.0 Pressure Support Vent 400 Sodium Potassium Chloride Carbon Dioxide Anion Gap BUN Creatinine Est GFR (CKD-EPI)AfAm Est GFR (CKD-EPI)NonAf POC Glucometer 192 Random Glucose Lactic Acid Calcium Phosphorus Magnesium Iron TIBC Iron Saturation Unsaturated IBC Ferritin Total Bilirubin AST ALT Alkaline Phosphatase Creatine Kinase Troponin I Total Protein Albumin Prealbumin Triglycerides Cholesterol Total LDL Cholesterol HDL Cholesterol Beta-Hydroxybutyrate Urine Color Urine Appearance Urine pH Ur Specific Downing Urine Protein Urine Glucose (UA) Urine Ketones Urine Blood Urine Nitrite Urine Bilirubin Urine Urobilinogen Ur Leukocyte Esterase Urine WBC (Auto) Urine RBC (Auto) U Epithel Cells (Auto) Urine Bacteria (Auto) Stool Occult Blood Acetone, Qual B-Hydroxybutyrate 03/19/19 03/19/19 03/19/19 23:15 23:15 23:15 WBC RBC Hgb Hct MCV MCH MCHC RDW Plt Count MPV Absolute Neuts (auto) Total Counted Neutrophils % Neutrophils % (Manual) Band Neutrophils % Lymphocytes % Lymphocytes % (Manual) Monocytes % Monocytes % (Manual) Eosinophils % Eosinophils % (Manual) Basophils % Basophils % (Manual) Myelocytes % (Man) Promyelocytes % (Man) Blast Cells % (Manual) Nucleated RBC % Metamyelocytes Hypochromia Toxic Granulation Platelet Estimate Platelet Comment Polychromasia Poikilocytosis Anisocytosis Microcytosis Macrocytosis Spherocytes Target Cells Tear Drop Cells Ovalocytes Thornton Cells Schistocytes PT with INR 17.70 H INR 1.49 H PTT (Actin FS) 36.3 Fibrinogen 359.0 Puncture Site ABG pH ABG pCO2 at Pt Temp ABG pO2 at Pt Temp ABG HCO3 ABG O2 Sat (Measured) ABG O2 Content ABG Base Excess Atul Test O2 Delivery Device Oxygen Flow Rate Vent Mode Vent Rate PEEP Pressure Support Vent Sodium 146 H Potassium 3.1 L Chloride 108 H Carbon Dioxide 32 Anion Gap 6 L BUN 7.1 Creatinine 0.6 Est GFR (CKD-EPI)AfAm 124.05 Est GFR (CKD-EPI)NonAf 107.03 POC Glucometer Random Glucose 227 H Lactic Acid Calcium 6.4 L* Phosphorus Magnesium Iron TIBC Iron Saturation Unsaturated IBC Ferritin Total Bilirubin 0.4 AST 37 ALT 13 Alkaline Phosphatase 460 H Creatine Kinase Troponin I 1.94 H* Total Protein 4.0 L Albumin 1.2 L Prealbumin Triglycerides Cholesterol Total LDL Cholesterol HDL Cholesterol Beta-Hydroxybutyrate Urine Color Urine Appearance Urine pH Ur Specific Downing Urine Protein Urine Glucose (UA) Urine Ketones Urine Blood Urine Nitrite Urine Bilirubin Urine Urobilinogen Ur Leukocyte Esterase Urine WBC (Auto) Urine RBC (Auto) U Epithel Cells (Auto) Urine Bacteria (Auto) Stool Occult Blood Acetone, Qual B-Hydroxybutyrate 03/19/19 03/20/19 03/20/19 23:15 05:30 05:30 WBC 9.9 RBC 2.90 L Hgb 7.1 L Hct 21.8 L MCV 75.3 L MCH 24.5 L MCHC 32.5 RDW 24.3 H Plt Count 72 L D MPV 9.3 Absolute Neuts (auto) 8.4 H Total Counted Neutrophils % 84.5 H Neutrophils % (Manual) 81.0 Band Neutrophils % 1.0 Lymphocytes % 12.6 Lymphocytes % (Manual) 11.0 Monocytes % 1.9 L Monocytes % (Manual) 2 L Eosinophils % 0.8 D Eosinophils % (Manual) 0.0 D Basophils % 0.2 Basophils % (Manual) 0.0 Myelocytes % (Man) 2 D Promyelocytes % (Man) 0 Blast Cells % (Manual) 0 Nucleated RBC % 1 H Metamyelocytes 3 H D Hypochromia 2+ Toxic Granulation Platelet Estimate Decreased Platelet Comment Polychromasia 3+ Poikilocytosis 1+ Anisocytosis 3+ Microcytosis 3+ Macrocytosis 0 Spherocytes Target Cells Tear Drop Cells Ovalocytes 1+ Jose Antonio Cells Schistocytes PT with INR INR PTT (Actin FS) 33.4 Fibrinogen Puncture Site ABG pH ABG pCO2 at Pt Temp ABG pO2 at Pt Temp ABG HCO3 ABG O2 Sat (Measured) ABG O2 Content ABG Base Excess Atul Test O2 Delivery Device Oxygen Flow Rate Vent Mode Vent Rate PEEP Pressure Support Vent Sodium Potassium Chloride Carbon Dioxide Anion Gap BUN Creatinine Est GFR (CKD-EPI)AfAm Est GFR (CKD-EPI)NonAf POC Glucometer Random Glucose Lactic Acid Calcium Phosphorus Magnesium Iron TIBC Iron Saturation Unsaturated IBC Ferritin Total Bilirubin AST ALT Alkaline Phosphatase Creatine Kinase Troponin I Cancelled Total Protein Albumin Prealbumin Triglycerides Cholesterol Total LDL Cholesterol HDL Cholesterol Beta-Hydroxybutyrate Urine Color Urine Appearance Urine pH Ur Specific Downing Urine Protein Urine Glucose (UA) Urine Ketones Urine Blood Urine Nitrite Urine Bilirubin Urine Urobilinogen Ur Leukocyte Esterase Urine WBC (Auto) Urine RBC (Auto) U Epithel Cells (Auto) Urine Bacteria (Auto) Stool Occult Blood Acetone, Qual B-Hydroxybutyrate 03/20/19 03/20/19 03/20/19 05:30 05:30 05:40 WBC RBC Hgb Hct MCV MCH MCHC RDW Plt Count MPV Absolute Neuts (auto) Total Counted Neutrophils % Neutrophils % (Manual) Band Neutrophils % Lymphocytes % Lymphocytes % (Manual) Monocytes % Monocytes % (Manual) Eosinophils % Eosinophils % (Manual) Basophils % Basophils % (Manual) Myelocytes % (Man) Promyelocytes % (Man) Blast Cells % (Manual) Nucleated RBC % Metamyelocytes Hypochromia Toxic Granulation Platelet Estimate Platelet Comment Polychromasia Poikilocytosis Anisocytosis Microcytosis Macrocytosis Spherocytes Target Cells Tear Drop Cells Ovalocytes [place] Cells Schistocytes PT with INR INR PTT (Actin FS) Fibrinogen Puncture Site ABG pH ABG pCO2 at Pt Temp ABG pO2 at Pt Temp ABG HCO3 ABG O2 Sat (Measured) ABG O2 Content ABG Base Excess Atul Test O2 Delivery Device Oxygen Flow Rate Vent Mode Vent Rate PEEP Pressure Support Vent Sodium 145 Potassium 3.2 L Chloride 106 Carbon Dioxide 27 Anion Gap 11 BUN 10.1 Creatinine 0.5 L Est GFR (CKD-EPI)AfAm 131.72 Est GFR (CKD-EPI)NonAf 113.65 POC Glucometer 397 Random Glucose 366 H Lactic Acid Calcium 6.7 L* Phosphorus 0.7 L* Magnesium 2.0 Iron TIBC Iron Saturation Unsaturated IBC Ferritin Total Bilirubin 0.3 AST 29 ALT 12 L Alkaline Phosphatase 422 H Creatine Kinase Troponin I Total Protein 4.0 L Albumin 1.2 L Prealbumin Triglycerides Cholesterol Total LDL Cholesterol HDL Cholesterol Beta-Hydroxybutyrate Urine Color Urine Appearance Urine pH Ur Specific Downing Urine Protein Urine Glucose (UA) Urine Ketones Urine Blood Urine Nitrite Urine Bilirubin Urine Urobilinogen Ur Leukocyte Esterase Urine WBC (Auto) Urine RBC (Auto) U Epithel Cells (Auto) Urine Bacteria (Auto) Stool Occult Blood Positive Acetone, Qual B-Hydroxybutyrate 03/20/19 03/20/19 03/20/19 09:59 10:59 12:24 WBC RBC Hgb Hct MCV MCH MCHC RDW Plt Count MPV Absolute Neuts (auto) Total Counted Neutrophils % Neutrophils % (Manual) Band Neutrophils % Lymphocytes % Lymphocytes % (Manual) Monocytes % Monocytes % (Manual) Eosinophils % Eosinophils % (Manual) Basophils % Basophils % (Manual) Myelocytes % (Man) Promyelocytes % (Man) Blast Cells % (Manual) Nucleated RBC % Metamyelocytes Hypochromia Toxic Granulation Platelet Estimate Platelet Comment Polychromasia Poikilocytosis Anisocytosis Microcytosis Macrocytosis Spherocytes Target Cells Tear Drop Cells Ovalocytes [place] Cells Schistocytes PT with INR INR PTT (Actin FS) Fibrinogen Puncture Site ABG pH ABG pCO2 at Pt Temp ABG pO2 at Pt Temp ABG HCO3 ABG O2 Sat (Measured) ABG O2 Content ABG Base Excess Atul Test O2 Delivery Device Oxygen Flow Rate Vent Mode Vent Rate PEEP Pressure Support Vent Sodium Potassium Chloride Carbon Dioxide Anion Gap BUN Creatinine Est GFR (CKD-EPI)AfAm Est GFR (CKD-EPI)NonAf POC Glucometer [phone] Random Glucose Lactic Acid Calcium Phosphorus Magnesium Iron TIBC Iron Saturation Unsaturated IBC Ferritin Total Bilirubin AST ALT Alkaline Phosphatase Creatine Kinase Troponin I Total Protein Albumin Prealbumin Triglycerides Cholesterol Total LDL Cholesterol HDL Cholesterol Beta-Hydroxybutyrate Urine Color Urine Appearance Urine pH Ur Specific Downing Urine Protein Urine Glucose (UA) Urine Ketones Urine Blood Urine Nitrite Urine Bilirubin Urine Urobilinogen Ur Leukocyte Esterase Urine WBC (Auto) Urine RBC (Auto) U Epithel Cells (Auto) Urine Bacteria (Auto) Stool Occult Blood Acetone, Qual B-Hydroxybutyrate 03/20/19 03/20/19 03/20/19 13:14 14:08 17:00 WBC RBC Hgb Hct MCV MCH MCHC RDW Plt Count MPV Absolute Neuts (auto) Total Counted Neutrophils % Neutrophils % (Manual) Band Neutrophils % Lymphocytes % Lymphocytes % (Manual) Monocytes % Monocytes % (Manual) Eosinophils % Eosinophils % (Manual) Basophils % Basophils % (Manual) Myelocytes % (Man) Promyelocytes % (Man) Blast Cells % (Manual) Nucleated RBC % Metamyelocytes Hypochromia Toxic Granulation Platelet Estimate Platelet Comment Polychromasia Poikilocytosis Anisocytosis Microcytosis Macrocytosis Spherocytes Target Cells Tear Drop Cells Ovalocytes Jose Antonio Cells Schistocytes PT with INR INR PTT (Actin FS) Fibrinogen Puncture Site ABG pH ABG pCO2 at Pt Temp ABG pO2 at Pt Temp ABG HCO3 ABG O2 Sat (Measured) ABG O2 Content ABG Base Excess Atul Test O2 Delivery Device Oxygen Flow Rate Vent Mode Vent Rate PEEP Pressure Support Vent Sodium 143 Potassium 3.5 Chloride 104 Carbon Dioxide 29 Anion Gap 10 BUN 10.5 Creatinine 0.4 L Est GFR (CKD-EPI)AfAm 141.75 Est GFR (CKD-EPI)NonAf 122.30 POC Glucometer 139 134 Random Glucose 315 H Lactic Acid Calcium 6.4 L* Phosphorus 2.4 L Magnesium 1.7 L Iron 125 TIBC 124 L Iron Saturation 100 H Unsaturated IBC -1 L Ferritin 220.2 Total Bilirubin AST ALT Alkaline Phosphatase Creatine Kinase Troponin I Total Protein Albumin Prealbumin Triglycerides Cholesterol Total LDL Cholesterol HDL Cholesterol Beta-Hydroxybutyrate Urine Color Urine Appearance Urine pH Ur Specific Downing Urine Protein Urine Glucose (UA) Urine Ketones Urine Blood Urine Nitrite Urine Bilirubin Urine Urobilinogen Ur Leukocyte Esterase Urine WBC (Auto) Urine RBC (Auto) U Epithel Cells (Auto) Urine Bacteria (Auto) Stool Occult Blood Acetone, Qual B-Hydroxybutyrate 03/20/19 03/20/19 03/20/19 17:32 19:44 21:48 WBC RBC Hgb Hct MCV MCH MCHC RDW Plt Count MPV Absolute Neuts (auto) Total Counted Neutrophils % Neutrophils % (Manual) Band Neutrophils % Lymphocytes % Lymphocytes % (Manual) Monocytes % Monocytes % (Manual) Eosinophils % Eosinophils % (Manual) Basophils % Basophils % (Manual) Myelocytes % (Man) Promyelocytes % (Man) Blast Cells % (Manual) Nucleated RBC % Metamyelocytes Hypochromia Toxic Granulation Platelet Estimate Platelet Comment Polychromasia Poikilocytosis Anisocytosis Microcytosis Macrocytosis Spherocytes Target Cells Tear Drop Cells Ovalocytes [place] Cells Schistocytes PT with INR INR PTT (Actin FS) Fibrinogen Puncture Site ABG pH ABG pCO2 at Pt Temp ABG pO2 at Pt Temp ABG HCO3 ABG O2 Sat (Measured) ABG O2 Content ABG Base Excess Atul Test O2 Delivery Device Oxygen Flow Rate Vent Mode Vent Rate PEEP Pressure Support Vent Sodium Potassium Chloride Carbon Dioxide Anion Gap BUN Creatinine Est GFR (CKD-EPI)AfAm Est GFR (CKD-EPI)NonAf POC Glucometer [phone] Random Glucose Lactic Acid Calcium Phosphorus Magnesium Iron TIBC Iron Saturation Unsaturated IBC Ferritin Total Bilirubin AST ALT Alkaline Phosphatase Creatine Kinase Troponin I Total Protein Albumin Prealbumin Triglycerides Cholesterol Total LDL Cholesterol HDL Cholesterol Beta-Hydroxybutyrate Urine Color Urine Appearance Urine pH Ur Specific Downing Urine Protein Urine Glucose (UA) Urine Ketones Urine Blood Urine Nitrite Urine Bilirubin Urine Urobilinogen Ur Leukocyte Esterase Urine WBC (Auto) Urine RBC (Auto) U Epithel Cells (Auto) Urine Bacteria (Auto) Stool Occult Blood Acetone, Qual B-Hydroxybutyrate 03/20/19 03/21/19 03/21/19 23:26 00:36 01:42 WBC RBC Hgb Hct MCV MCH MCHC RDW Plt Count MPV Absolute Neuts (auto) Total Counted Neutrophils % Neutrophils % (Manual) Band Neutrophils % Lymphocytes % Lymphocytes % (Manual) Monocytes % Monocytes % (Manual) Eosinophils % Eosinophils % (Manual) Basophils % Basophils % (Manual) Myelocytes % (Man) Promyelocytes % (Man) Blast Cells % (Manual) Nucleated RBC % Metamyelocytes Hypochromia Toxic Granulation Platelet Estimate Platelet Comment Polychromasia Poikilocytosis Anisocytosis Microcytosis Macrocytosis Spherocytes Target Cells Tear Drop Cells Ovalocytes [place] Cells Schistocytes PT with INR INR PTT (Actin FS) Fibrinogen Puncture Site ABG pH ABG pCO2 at Pt Temp ABG pO2 at Pt Temp ABG HCO3 ABG O2 Sat (Measured) ABG O2 Content ABG Base Excess Atul Test O2 Delivery Device Oxygen Flow Rate Vent Mode Vent Rate PEEP Pressure Support Vent Sodium Potassium Chloride Carbon Dioxide Anion Gap BUN Creatinine Est GFR (CKD-EPI)AfAm Est GFR (CKD-EPI)NonAf POC Glucometer 88 [phone] Random Glucose Lactic Acid Calcium Phosphorus Magnesium Iron TIBC Iron Saturation Unsaturated IBC Ferritin Total Bilirubin AST ALT Alkaline Phosphatase Creatine Kinase Troponin I Total Protein Albumin Prealbumin Triglycerides Cholesterol Total LDL Cholesterol HDL Cholesterol Beta-Hydroxybutyrate Urine Color Urine Appearance Urine pH Ur Specific Downing Urine Protein Urine Glucose (UA) Urine Ketones Urine Blood Urine Nitrite Urine Bilirubin Urine Urobilinogen Ur Leukocyte Esterase Urine WBC (Auto) Urine RBC (Auto) U Epithel Cells (Auto) Urine Bacteria (Auto) Stool Occult Blood Acetone, Qual B-Hydroxybutyrate 03/21/19 03/21/19 03/21/19 02:46 04:55 05:30 WBC 12.0 H RBC 3.85 Hgb 9.9 L Hct 29.9 L D MCV 77.7 L MCH 25.6 L MCHC 33.0 RDW 21.8 H Plt Count 87 L D MPV 9.6 Absolute Neuts (auto) 9.6 H Total Counted Neutrophils % 79.3 Neutrophils % (Manual) 72.7 Band Neutrophils % 1.0 Lymphocytes % 15.9 D Lymphocytes % (Manual) 19.2 D Monocytes % 2.1 L Monocytes % (Manual) 3 L Eosinophils % 2.4 D Eosinophils % (Manual) 3.1 D Basophils % 0.3 Basophils % (Manual) 0.0 Myelocytes % (Man) 0 D Promyelocytes % (Man) 0 Blast Cells % (Manual) 0 Nucleated RBC % 0 Metamyelocytes 1 D Hypochromia 0 Toxic Granulation Platelet Estimate Decreased Platelet Comment Polychromasia 1+ Poikilocytosis 0 Anisocytosis 1+ Microcytosis 1+ Macrocytosis 0 Spherocytes Target Cells 2+ Tear Drop Cells Ovalocytes 1+ Jose Antonio Cells Schistocytes PT with INR INR PTT (Actin FS) Fibrinogen Puncture Site ABG pH ABG pCO2 at Pt Temp ABG pO2 at Pt Temp ABG HCO3 ABG O2 Sat (Measured) ABG O2 Content ABG Base Excess Atul Test O2 Delivery Device Oxygen Flow Rate Vent Mode Vent Rate PEEP Pressure Support Vent Sodium Potassium Chloride Carbon Dioxide Anion Gap BUN Creatinine Est GFR (CKD-EPI)AfAm Est GFR (CKD-EPI)NonAf POC Glucometer 265 225 Random Glucose Lactic Acid Calcium Phosphorus Magnesium Iron TIBC Iron Saturation Unsaturated IBC Ferritin Total Bilirubin AST ALT Alkaline Phosphatase Creatine Kinase Troponin I Total Protein Albumin Prealbumin Triglycerides Cholesterol Total LDL Cholesterol HDL Cholesterol Beta-Hydroxybutyrate Urine Color Urine Appearance Urine pH Ur Specific Downing Urine Protein Urine Glucose (UA) Urine Ketones Urine Blood Urine Nitrite Urine Bilirubin Urine Urobilinogen Ur Leukocyte Esterase Urine WBC (Auto) Urine RBC (Auto) U Epithel Cells (Auto) Urine Bacteria (Auto) Stool Occult Blood Acetone, Qual B-Hydroxybutyrate 03/21/19 03/21/19 03/21/19 05:30 05:30 06:00 WBC RBC Hgb Hct MCV MCH MCHC RDW Plt Count MPV Absolute Neuts (auto) Total Counted Neutrophils % Neutrophils % (Manual) Band Neutrophils % Lymphocytes % Lymphocytes % (Manual) Monocytes % Monocytes % (Manual) Eosinophils % Eosinophils % (Manual) Basophils % Basophils % (Manual) Myelocytes % (Man) Promyelocytes % (Man) Blast Cells % (Manual) Nucleated RBC % Metamyelocytes Hypochromia Toxic Granulation Platelet Estimate Platelet Comment Polychromasia Poikilocytosis Anisocytosis Microcytosis Macrocytosis Spherocytes Target Cells Tear Drop Cells Ovalocytes Thornton Cells Schistocytes PT with INR INR PTT (Actin FS) Fibrinogen Puncture Site Left radial ABG pH 7.46 H ABG pCO2 at Pt Temp 44.1 ABG pO2 at Pt Temp 134 H ABG HCO3 30.6 H ABG O2 Sat (Measured) 98.8 H ABG O2 Content 17.0 ABG Base Excess 6.3 H Atul Test Positive O2 Delivery Device Vent Oxygen Flow Rate 40% Vent Mode A/c Vent Rate 14 PEEP 5.0 Pressure Support Vent 400 Sodium 142 Potassium 2.9 L* Chloride 103 Carbon Dioxide 31 Anion Gap 8 BUN 14.5 Creatinine 0.5 L Est GFR (CKD-EPI)AfAm 131.72 Est GFR (CKD-EPI)NonAf 113.65 POC Glucometer Random Glucose 242 H Lactic Acid 3.4 H* Calcium 6.6 L* Phosphorus Magnesium 1.6 L Iron TIBC Iron Saturation Unsaturated IBC Ferritin Total Bilirubin 0.5 AST 22 ALT 10 L Alkaline Phosphatase 332 H Creatine Kinase Troponin I Total Protein 4.2 L Albumin 1.2 L Prealbumin Triglycerides Cholesterol Total LDL Cholesterol HDL Cholesterol Beta-Hydroxybutyrate Urine Color Urine Appearance Urine pH Ur Specific Downing Urine Protein Urine Glucose (UA) Urine Ketones Urine Blood Urine Nitrite Urine Bilirubin Urine Urobilinogen Ur Leukocyte Esterase Urine WBC (Auto) Urine RBC (Auto) U Epithel Cells (Auto) Urine Bacteria (Auto) Stool Occult Blood Acetone, Qual B-Hydroxybutyrate 03/21/19 03/21/19 03/21/19 06:21 07:06 08:46 WBC RBC Hgb Hct MCV MCH MCHC RDW Plt Count MPV Absolute Neuts (auto) Total Counted Neutrophils % Neutrophils % (Manual) Band Neutrophils % Lymphocytes % Lymphocytes % (Manual) Monocytes % Monocytes % (Manual) Eosinophils % Eosinophils % (Manual) Basophils % Basophils % (Manual) Myelocytes % (Man) Promyelocytes % (Man) Blast Cells % (Manual) Nucleated RBC % Metamyelocytes Hypochromia Toxic Granulation Platelet Estimate Platelet Comment Polychromasia Poikilocytosis Anisocytosis Microcytosis Macrocytosis Spherocytes Target Cells Tear Drop Cells Ovalocytes [place] Cells Schistocytes PT with INR INR PTT (Actin FS) Fibrinogen Puncture Site ABG pH ABG pCO2 at Pt Temp ABG pO2 at Pt Temp ABG HCO3 ABG O2 Sat (Measured) ABG O2 Content ABG Base Excess Atul Test O2 Delivery Device Oxygen Flow Rate Vent Mode Vent Rate PEEP Pressure Support Vent Sodium Potassium Chloride Carbon Dioxide Anion Gap BUN Creatinine Est GFR (CKD-EPI)AfAm Est GFR (CKD-EPI)NonAf POC Glucometer [phone] 97 Random Glucose Lactic Acid Calcium Phosphorus Magnesium Iron TIBC Iron Saturation Unsaturated IBC Ferritin Total Bilirubin AST ALT Alkaline Phosphatase Creatine Kinase Troponin I Total Protein Albumin Prealbumin Triglycerides Cholesterol Total LDL Cholesterol HDL Cholesterol Beta-Hydroxybutyrate Urine Color Urine Appearance Urine pH Ur Specific Downing Urine Protein Urine Glucose (UA) Urine Ketones Urine Blood Urine Nitrite Urine Bilirubin Urine Urobilinogen Ur Leukocyte Esterase Urine WBC (Auto) Urine RBC (Auto) U Epithel Cells (Auto) Urine Bacteria (Auto) Stool Occult Blood Acetone, Qual B-Hydroxybutyrate 03/21/19 03/21/19 03/21/19 10:28 12:29 14:44 WBC RBC Hgb Hct MCV MCH MCHC RDW Plt Count MPV Absolute Neuts (auto) Total Counted Neutrophils % Neutrophils % (Manual) Band Neutrophils % Lymphocytes % Lymphocytes % (Manual) Monocytes % Monocytes % (Manual) Eosinophils % Eosinophils % (Manual) Basophils % Basophils % (Manual) Myelocytes % (Man) Promyelocytes % (Man) Blast Cells % (Manual) Nucleated RBC % Metamyelocytes Hypochromia Toxic Granulation Platelet Estimate Platelet Comment Polychromasia Poikilocytosis Anisocytosis Microcytosis Macrocytosis Spherocytes Target Cells Tear Drop Cells Ovalocytes Jose Antonio Cells Schistocytes PT with INR INR PTT (Actin FS) Fibrinogen Puncture Site ABG pH ABG pCO2 at Pt Temp ABG pO2 at Pt Temp ABG HCO3 ABG O2 Sat (Measured) ABG O2 Content ABG Base Excess Atul Test O2 Delivery Device Oxygen Flow Rate Vent Mode Vent Rate PEEP Pressure Support Vent Sodium Potassium Chloride Carbon Dioxide Anion Gap BUN Creatinine Est GFR (CKD-EPI)AfAm Est GFR (CKD-EPI)NonAf POC Glucometer [phone] Random Glucose Lactic Acid Calcium Phosphorus Magnesium Iron TIBC Iron Saturation Unsaturated IBC Ferritin Total Bilirubin AST ALT Alkaline Phosphatase Creatine Kinase Troponin I Total Protein Albumin Prealbumin Triglycerides Cholesterol Total LDL Cholesterol HDL Cholesterol Beta-Hydroxybutyrate Urine Color Urine Appearance Urine pH Ur Specific Downing Urine Protein Urine Glucose (UA) Urine Ketones Urine Blood Urine Nitrite Urine Bilirubin Urine Urobilinogen Ur Leukocyte Esterase Urine WBC (Auto) Urine RBC (Auto) U Epithel Cells (Auto) Urine Bacteria (Auto) Stool Occult Blood Acetone, Qual B-Hydroxybutyrate 03/21/19 03/21/19 03/21/19 16:27 18:15 18:25 WBC RBC Hgb Hct MCV MCH MCHC RDW Plt Count MPV Absolute Neuts (auto) Total Counted Neutrophils % Neutrophils % (Manual) Band Neutrophils % Lymphocytes % Lymphocytes % (Manual) Monocytes % Monocytes % (Manual) Eosinophils % Eosinophils % (Manual) Basophils % Basophils % (Manual) Myelocytes % (Man) Promyelocytes % (Man) Blast Cells % (Manual) Nucleated RBC % Metamyelocytes Hypochromia Toxic Granulation Platelet Estimate Platelet Comment Polychromasia Poikilocytosis Anisocytosis Microcytosis Macrocytosis Spherocytes Target Cells Tear Drop Cells Ovalocytes Jose Antonio Cells Schistocytes PT with INR INR PTT (Actin FS) Fibrinogen Puncture Site ABG pH ABG pCO2 at Pt Temp ABG pO2 at Pt Temp ABG HCO3 ABG O2 Sat (Measured) ABG O2 Content ABG Base Excess Atul Test O2 Delivery Device Oxygen Flow Rate Vent Mode Vent Rate PEEP Pressure Support Vent Sodium 143 Potassium 3.1 L Chloride 105 Carbon Dioxide 28 Anion Gap 10 BUN 17.0 Creatinine 0.6 Est GFR (CKD-EPI)AfAm 124.05 Est GFR (CKD-EPI)NonAf 107.03 POC Glucometer 257 136 Random Glucose 137 H Lactic Acid Calcium 7.1 L Phosphorus 1.2 L Magnesium 2.2 Iron TIBC Iron Saturation Unsaturated IBC Ferritin Total Bilirubin AST ALT Alkaline Phosphatase Creatine Kinase Troponin I Total Protein Albumin Prealbumin Triglycerides Cholesterol Total LDL Cholesterol HDL Cholesterol Beta-Hydroxybutyrate 1.7 Urine Color Urine Appearance Urine pH Ur Specific Downing Urine Protein Urine Glucose (UA) Urine Ketones Urine Blood Urine Nitrite Urine Bilirubin Urine Urobilinogen Ur Leukocyte Esterase Urine WBC (Auto) Urine RBC (Auto) U Epithel Cells (Auto) Urine Bacteria (Auto) Stool Occult Blood Acetone, Qual B-Hydroxybutyrate 03/21/19 03/21/19 03/22/19 20:20 21:31 00:00 WBC RBC Hgb Hct MCV MCH MCHC RDW Plt Count MPV Absolute Neuts (auto) Total Counted Neutrophils % Neutrophils % (Manual) Band Neutrophils % Lymphocytes % Lymphocytes % (Manual) Monocytes % Monocytes % (Manual) Eosinophils % Eosinophils % (Manual) Basophils % Basophils % (Manual) Myelocytes % (Man) Promyelocytes % (Man) Blast Cells % (Manual) Nucleated RBC % Metamyelocytes Hypochromia Toxic Granulation Platelet Estimate Platelet Comment Polychromasia Poikilocytosis Anisocytosis Microcytosis Macrocytosis Spherocytes Target Cells Tear Drop Cells Ovalocytes Jose Antonio Cells Schistocytes PT with INR INR PTT (Actin FS) Fibrinogen Puncture Site ABG pH ABG pCO2 at Pt Temp ABG pO2 at Pt Temp ABG HCO3 ABG O2 Sat (Measured) ABG O2 Content ABG Base Excess Atul Test O2 Delivery Device Oxygen Flow Rate Vent Mode Vent Rate PEEP Pressure Support Vent Sodium Potassium Chloride Carbon Dioxide Anion Gap BUN Creatinine Est GFR (CKD-EPI)AfAm Est GFR (CKD-EPI)NonAf POC Glucometer 93 [phone] Random Glucose Lactic Acid Calcium Phosphorus Magnesium Iron TIBC Iron Saturation Unsaturated IBC Ferritin Total Bilirubin AST ALT Alkaline Phosphatase Creatine Kinase Troponin I Total Protein Albumin Prealbumin Triglycerides Cholesterol Total LDL Cholesterol HDL Cholesterol Beta-Hydroxybutyrate Urine Color Urine Appearance Urine pH Ur Specific Downing Urine Protein Urine Glucose (UA) Urine Ketones Urine Blood Urine Nitrite Urine Bilirubin Urine Urobilinogen Ur Leukocyte Esterase Urine WBC (Auto) Urine RBC (Auto) U Epithel Cells (Auto) Urine Bacteria (Auto) Stool Occult Blood Acetone, Qual B-Hydroxybutyrate 03/22/19 03/22/19 03/22/19 02:29 04:38 05:10 WBC 11.1 H RBC 3.88 Hgb 10.0 L Hct 29.8 L MCV 76.9 L MCH 25.8 MCHC 33.5 RDW 23.0 H Plt Count 95 L MPV 9.4 Absolute Neuts (auto) 8.7 H Total Counted Neutrophils % 78.6 Neutrophils % (Manual) Band Neutrophils % Lymphocytes % 18.0 Lymphocytes % (Manual) Monocytes % 1.4 L Monocytes % (Manual) Eosinophils % 1.7 Eosinophils % (Manual) Basophils % 0.3 Basophils % (Manual) Myelocytes % (Man) Promyelocytes % (Man) Blast Cells % (Manual) Nucleated RBC % 0 Metamyelocytes Hypochromia Toxic Granulation Platelet Estimate Platelet Comment Polychromasia Poikilocytosis Anisocytosis Microcytosis Macrocytosis Spherocytes Target Cells Tear Drop Cells Ovalocytes [place] Cells Schistocytes PT with INR INR PTT (Actin FS) Fibrinogen Puncture Site ABG pH ABG pCO2 at Pt Temp ABG pO2 at Pt Temp ABG HCO3 ABG O2 Sat (Measured) ABG O2 Content ABG Base Excess Atul Test O2 Delivery Device Oxygen Flow Rate Vent Mode Vent Rate PEEP Pressure Support Vent Sodium Potassium Chloride Carbon Dioxide Anion Gap BUN Creatinine Est GFR (CKD-EPI)AfAm Est GFR (CKD-EPI)NonAf POC Glucometer 163 141 Random Glucose Lactic Acid Calcium Phosphorus Magnesium Iron TIBC Iron Saturation Unsaturated IBC Ferritin Total Bilirubin AST ALT Alkaline Phosphatase Creatine Kinase Troponin I Total Protein Albumin Prealbumin Triglycerides Cholesterol Total LDL Cholesterol HDL Cholesterol Beta-Hydroxybutyrate Urine Color Urine Appearance Urine pH Ur Specific Downing Urine Protein Urine Glucose (UA) Urine Ketones Urine Blood Urine Nitrite Urine Bilirubin Urine Urobilinogen Ur Leukocyte Esterase Urine WBC (Auto) Urine RBC (Auto) U Epithel Cells (Auto) Urine Bacteria (Auto) Stool Occult Blood Acetone, Qual B-Hydroxybutyrate 03/22/19 03/22/1903/22/19 05:10 05:10 07:56 WBC RBC Hgb Hct MCV MCH MCHC RDW Plt Count MPV Absolute Neuts (auto) Total Counted Neutrophils % Neutrophils % (Manual) Band Neutrophils % Lymphocytes % Lymphocytes % (Manual) Monocytes % Monocytes % (Manual) Eosinophils % Eosinophils % (Manual) Basophils % Basophils % (Manual) Myelocytes % (Man) Promyelocytes % (Man) Blast Cells % (Manual) Nucleated RBC % Metamyelocytes Hypochromia Toxic Granulation Platelet Estimate Platelet Comment Polychromasia Poikilocytosis Anisocytosis Microcytosis Macrocytosis Spherocytes Target Cells Tear Drop Cells Ovalocytes Jose Antonio Cells Schistocytes PT with INR INR PTT (Actin FS) Fibrinogen Puncture Site ABG pH ABG pCO2 at Pt Temp ABG pO2 at Pt Temp ABG HCO3 ABG O2 Sat (Measured) ABG O2 Content ABG Base Excess Atul Test O2 Delivery Device Oxygen Flow Rate Vent Mode Vent Rate PEEP Pressure Support Vent Sodium 141 Potassium 3.9 Chloride 104 Carbon Dioxide 30 Anion Gap 8 BUN 18.6 H Creatinine 0.5 L Est GFR (CKD-EPI)AfAm 131.72 Est GFR (CKD-EPI)NonAf 113.65 POC Glucometer 195 Random Glucose 156 H Lactic Acid Calcium 6.9 L* Phosphorus Magnesium 2.1 Iron TIBC Iron Saturation Unsaturated IBC Ferritin Total Bilirubin 0.4 AST 20 ALT 11 L Alkaline Phosphatase 285 H Creatine Kinase Troponin I Total Protein 4.4 L Albumin 1.2 L Prealbumin Triglycerides Cholesterol Total LDL Cholesterol HDL Cholesterol Beta-Hydroxybutyrate 0.9 Urine Color Urine Appearance Urine pH Ur Specific Downing Urine Protein Urine Glucose (UA) Urine Ketones Urine Blood Urine Nitrite Urine Bilirubin Urine Urobilinogen Ur Leukocyte Esterase Urine WBC (Auto) Urine RBC (Auto) U Epithel Cells (Auto) Urine Bacteria (Auto) Stool Occult Blood Acetone, Qual B-Hydroxybutyrate 03/22/19 03/22/19 03/22/19 10:49 14:56 17:11 WBC RBC Hgb Hct MCV MCH MCHC RDW Plt Count MPV Absolute Neuts (auto) Total Counted Neutrophils % Neutrophils % (Manual) Band Neutrophils % Lymphocytes % Lymphocytes % (Manual) Monocytes % Monocytes % (Manual) Eosinophils % Eosinophils % (Manual) Basophils % Basophils % (Manual) Myelocytes % (Man) Promyelocytes % (Man) Blast Cells % (Manual) Nucleated RBC % Metamyelocytes Hypochromia Toxic Granulation Platelet Estimate Platelet Comment Polychromasia Poikilocytosis Anisocytosis Microcytosis Macrocytosis Spherocytes Target Cells Tear Drop Cells Ovalocytes Thornton Cells Schistocytes PT with INR INR PTT (Actin FS) Fibrinogen Puncture Site ABG pH ABG pCO2 at Pt Temp ABG pO2 at Pt Temp ABG HCO3 ABG O2 Sat (Measured) ABG O2 Content ABG Base Excess Atul Test O2 Delivery Device Oxygen Flow Rate Vent Mode Vent Rate PEEP Pressure Support Vent Sodium Potassium Chloride Carbon Dioxide Anion Gap BUN Creatinine Est GFR (CKD-EPI)AfAm Est GFR (CKD-EPI)NonAf POC Glucometer [phone] Random Glucose Lactic Acid Calcium Phosphorus Magnesium Iron TIBC Iron Saturation Unsaturated IBC Ferritin Total Bilirubin AST ALT Alkaline Phosphatase Creatine Kinase Troponin I Total Protein Albumin Prealbumin Triglycerides Cholesterol Total LDL Cholesterol HDL Cholesterol Beta-Hydroxybutyrate Urine Color Urine Appearance Urine pH Ur Specific Downing Urine Protein Urine Glucose (UA) Urine Ketones Urine Blood Urine Nitrite Urine Bilirubin Urine Urobilinogen Ur Leukocyte Esterase Urine WBC (Auto) Urine RBC (Auto) U Epithel Cells (Auto) Urine Bacteria (Auto) Stool Occult Blood Acetone, Qual B-Hydroxybutyrate 03/22/19 03/23/19 03/23/19 21:34 02:48 03:32 WBC RBC Hgb Hct MCV MCH MCHC RDW Plt Count MPV Absolute Neuts (auto) Total Counted Neutrophils % Neutrophils % (Manual) Band Neutrophils % Lymphocytes % Lymphocytes % (Manual) Monocytes % Monocytes % (Manual) Eosinophils % Eosinophils % (Manual) Basophils % Basophils % (Manual) Myelocytes % (Man) Promyelocytes % (Man) Blast Cells % (Manual) Nucleated RBC % Metamyelocytes Hypochromia Toxic Granulation Platelet Estimate Platelet Comment Polychromasia Poikilocytosis Anisocytosis Microcytosis Macrocytosis Spherocytes Target Cells Tear Drop Cells Ovalocytes [place] Cells Schistocytes PT with INR INR PTT (Actin FS) Fibrinogen Puncture Site ABG pH ABG pCO2 at Pt Temp ABG pO2 at Pt Temp ABG HCO3 ABG O2 Sat (Measured) ABG O2 Content ABG Base Excess Atul Test O2 Delivery Device Oxygen Flow Rate Vent Mode Vent Rate PEEP Pressure Support Vent Sodium Potassium Chloride Carbon Dioxide Anion Gap BUN Creatinine Est GFR (CKD-EPI)AfAm Est GFR (CKD-EPI)NonAf POC Glucometer [phone] Random Glucose Lactic Acid Calcium Phosphorus Magnesium Iron TIBC Iron Saturation Unsaturated IBC Ferritin Total Bilirubin AST ALT Alkaline Phosphatase Creatine Kinase Troponin I Total Protein Albumin Prealbumin Triglycerides Cholesterol Total LDL Cholesterol HDL Cholesterol Beta-Hydroxybutyrate Urine Color Urine Appearance Urine pH Ur Specific Downing Urine Protein Urine Glucose (UA) Urine Ketones Urine Blood Urine Nitrite Urine Bilirubin Urine Urobilinogen Ur Leukocyte Esterase Urine WBC (Auto) Urine RBC (Auto) U Epithel Cells (Auto) Urine Bacteria (Auto) Stool Occult Blood Acetone, Qual B-Hydroxybutyrate 03/23/19 03/23/19 03/23/19 05:10 05:10 05:10 WBC 12.9 H RBC 3.47 L Hgb 8.9 L Hct 27.2 L MCV 78.3 L MCH 25.5 L MCHC 32.6 RDW 22.8 H Plt Count 121 L D MPV 9.0 Absolute Neuts (auto) 9.9 H Total Counted Neutrophils % 77.0 Neutrophils % (Manual) Band Neutrophils % Lymphocytes % 17.9 Lymphocytes % (Manual) Monocytes % 3.3 L D Monocytes % (Manual) Eosinophils % 1.2 Eosinophils % (Manual) Basophils % 0.6 Basophils % (Manual) Myelocytes % (Man) Promyelocytes % (Man) Blast Cells % (Manual) Nucleated RBC % 0 Metamyelocytes Hypochromia Toxic Granulation Platelet Estimate Platelet Comment Polychromasia Poikilocytosis Anisocytosis Microcytosis Macrocytosis Spherocytes Target Cells Tear Drop Cells Ovalocytes [place] Cells Schistocytes PT with INR INR PTT (Actin FS) Fibrinogen Puncture Site ABG pH ABG pCO2 at Pt Temp ABG pO2 at Pt Temp ABG HCO3 ABG O2 Sat (Measured) ABG O2 Content ABG Base Excess Atul Test O2 Delivery Device Oxygen Flow Rate Vent Mode Vent Rate PEEP Pressure Support Vent Sodium 144 Potassium 3.5 Chloride 106 Carbon Dioxide 33 H Anion Gap 5 L BUN 19.3 H Creatinine 0.5 L Est GFR (CKD-EPI)AfAm 131.72 Est GFR (CKD-EPI)NonAf 113.65 POC Glucometer 26 Random Glucose 31 L* Lactic Acid Calcium 7.0 L Phosphorus 2.1 L Magnesium 2.2 Iron TIBC Iron Saturation Unsaturated IBC Ferritin Total Bilirubin 0.2 AST 21 ALT 11 L Alkaline Phosphatase 229 H Creatine Kinase Troponin I Total Protein 4.5 L Albumin 1.2 L Prealbumin Triglycerides Cholesterol Total LDL Cholesterol HDL Cholesterol Beta-Hydroxybutyrate Urine Color Urine Appearance Urine pH Ur Specific Downing Urine Protein Urine Glucose (UA) Urine Ketones Urine Blood Urine Nitrite Urine Bilirubin Urine Urobilinogen Ur Leukocyte Esterase Urine WBC (Auto) Urine RBC (Auto) U Epithel Cells (Auto) Urine Bacteria (Auto) Stool Occult Blood Acetone, Qual B-Hydroxybutyrate 03/23/19 03/23/19 03/23/19 05:45 07:44 09:05 WBC RBC Hgb Hct MCV MCH MCHC RDW Plt Count MPV Absolute Neuts (auto) Total Counted Neutrophils % Neutrophils % (Manual) Band Neutrophils % Lymphocytes % Lymphocytes % (Manual) Monocytes % Monocytes % (Manual) Eosinophils % Eosinophils % (Manual) Basophils % Basophils % (Manual) Myelocytes % (Man) Promyelocytes % (Man) Blast Cells % (Manual) Nucleated RBC % Metamyelocytes Hypochromia Toxic Granulation Platelet Estimate Platelet Comment Polychromasia Poikilocytosis Anisocytosis Microcytosis Macrocytosis Spherocytes Target Cells Tear Drop Cells Ovalocytes [place] Cells Schistocytes PT with INR INR PTT (Actin FS) Fibrinogen Puncture Site ABG pH ABG pCO2 at Pt Temp ABG pO2 at Pt Temp ABG HCO3 ABG O2 Sat (Measured) ABG O2 Content ABG Base Excess Atul Test O2 Delivery Device Oxygen Flow Rate Vent Mode Vent Rate PEEP Pressure Support Vent Sodium Potassium Chloride Carbon Dioxide Anion Gap BUN Creatinine Est GFR (CKD-EPI)AfAm Est GFR (CKD-EPI)NonAf POC Glucometer 84 [phone] Random Glucose Lactic Acid Calcium Phosphorus Magnesium Iron TIBC Iron Saturation Unsaturated IBC Ferritin Total Bilirubin AST ALT Alkaline Phosphatase Creatine Kinase Troponin I Total Protein Albumin Prealbumin Triglycerides Cholesterol Total LDL Cholesterol HDL Cholesterol Beta-Hydroxybutyrate Urine Color Urine Appearance Urine pH Ur Specific Downing Urine Protein Urine Glucose (UA) Urine Ketones Urine Blood Urine Nitrite Urine Bilirubin Urine Urobilinogen Ur Leukocyte Esterase Urine WBC (Auto) Urine RBC (Auto) U Epithel Cells (Auto) Urine Bacteria (Auto) Stool Occult Blood Acetone, Qual B-Hydroxybutyrate 03/23/19 03/23/19 03/23/19 11:25 13:44 16:30 WBC RBC Hgb Hct MCV MCH MCHC RDW Plt Count MPV Absolute Neuts (auto) Total Counted Neutrophils % Neutrophils % (Manual) Band Neutrophils % Lymphocytes % Lymphocytes % (Manual) Monocytes % Monocytes % (Manual) Eosinophils % Eosinophils % (Manual) Basophils % Basophils % (Manual) Myelocytes % (Man) Promyelocytes % (Man) Blast Cells % (Manual) Nucleated RBC % Metamyelocytes Hypochromia Toxic Granulation Platelet Estimate Platelet Comment Polychromasia Poikilocytosis Anisocytosis Microcytosis Macrocytosis Spherocytes Target Cells Tear Drop Cells Ovalocytes Jose Antonio Cells Schistocytes PT with INR INR PTT (Actin FS) Fibrinogen Puncture Site ABG pH ABG pCO2 at Pt Temp ABG pO2 at Pt Temp ABG HCO3 ABG O2 Sat (Measured) ABG O2 Content ABG Base Excess Atul Test O2 Delivery Device Oxygen Flow Rate Vent Mode Vent Rate PEEP Pressure Support Vent Sodium Potassium Chloride Carbon Dioxide Anion Gap BUN Creatinine Est GFR (CKD-EPI)AfAm Est GFR (CKD-EPI)NonAf POC Glucometer [phone] Random Glucose Lactic Acid Calcium Phosphorus Magnesium Iron TIBC Iron Saturation Unsaturated IBC Ferritin Total Bilirubin AST ALT Alkaline Phosphatase Creatine Kinase Troponin I Total Protein Albumin Prealbumin Triglycerides Cholesterol Total LDL Cholesterol HDL Cholesterol Beta-Hydroxybutyrate Urine Color Urine Appearance Urine pH Ur Specific Downing Urine Protein Urine Glucose (UA) Urine Ketones Urine Blood Urine Nitrite Urine Bilirubin Urine Urobilinogen Ur Leukocyte Esterase Urine WBC (Auto) Urine RBC (Auto) U Epithel Cells (Auto) Urine Bacteria (Auto) Stool Occult Blood Acetone, Qual B-Hydroxybutyrate 03/23/19 03/24/19 03/24/19 21:56 01:44 05:40 WBC 7.9 RBC 3.06 L Hgb 7.9 L Hct 24.2 L MCV 78.9 L MCH 25.9 MCHC 32.9 RDW 23.2 H Plt Count 95 L D MPV 8.1 Absolute Neuts (auto) 5.6 Total Counted Neutrophils % 71.4 Neutrophils % (Manual) Band Neutrophils % Lymphocytes % 20.4 Lymphocytes % (Manual) Monocytes % 4.3 Monocytes % (Manual) Eosinophils % 3.0 D Eosinophils % (Manual) Basophils % 0.9 Basophils % (Manual) Myelocytes % (Man) Promyelocytes % (Man) Blast Cells % (Manual) Nucleated RBC % 0 Metamyelocytes Hypochromia 0 Toxic Granulation Platelet Estimate Decreased Platelet Comment Polychromasia 1+ Poikilocytosis 0 Anisocytosis 1+ Microcytosis 1+ Macrocytosis 1+ Spherocytes Target Cells 2+ Tear Drop Cells Ovalocytes 1+ Jose Antonio Cells Schistocytes PT with INR INR PTT (Actin FS) Fibrinogen Puncture Site ABG pH ABG pCO2 at Pt Temp ABG pO2 at Pt Temp ABG HCO3 ABG O2 Sat (Measured) ABG O2 Content ABG Base Excess Atul Test O2 Delivery Device Oxygen Flow Rate Vent Mode Vent Rate PEEP Pressure Support Vent Sodium Potassium Chloride Carbon Dioxide Anion Gap BUN Creatinine Est GFR (CKD-EPI)AfAm Est GFR (CKD-EPI)NonAf POC Glucometer 255 120 Random Glucose Lactic Acid Calcium Phosphorus Magnesium Iron TIBC Iron Saturation Unsaturated IBC Ferritin Total Bilirubin AST ALT Alkaline Phosphatase Creatine Kinase Troponin I Total Protein Albumin Prealbumin Triglycerides Cholesterol Total LDL Cholesterol HDL Cholesterol Beta-Hydroxybutyrate Urine Color Urine Appearance Urine pH Ur Specific Downing Urine Protein Urine Glucose (UA) Urine Ketones Urine Blood Urine Nitrite Urine Bilirubin Urine Urobilinogen Ur Leukocyte Esterase Urine WBC (Auto) Urine RBC (Auto) U Epithel Cells (Auto) Urine Bacteria (Auto) Stool Occult Blood Acetone, Qual B-Hydroxybutyrate 03/24/19 03/24/19 03/24/19 05:40 06:03 11:56 WBC RBC Hgb Hct MCV MCH MCHC RDW Plt Count MPV Absolute Neuts (auto) Total Counted Neutrophils % Neutrophils % (Manual) Band Neutrophils % Lymphocytes % Lymphocytes % (Manual) Monocytes % Monocytes % (Manual) Eosinophils % Eosinophils % (Manual) Basophils % Basophils % (Manual) Myelocytes % (Man) Promyelocytes % (Man) Blast Cells % (Manual) Nucleated RBC % Metamyelocytes Hypochromia Toxic Granulation Platelet Estimate Platelet Comment Polychromasia Poikilocytosis Anisocytosis Microcytosis Macrocytosis Spherocytes Target Cells Tear Drop Cells Ovalocytes [place] Cells Schistocytes PT with INR INR PTT (Actin FS) Fibrinogen Puncture Site ABG pH ABG pCO2 at Pt Temp ABG pO2 at Pt Temp ABG HCO3 ABG O2 Sat (Measured) ABG O2 Content ABG Base Excess Atul Test O2 Delivery Device Oxygen Flow Rate Vent Mode Vent Rate PEEP Pressure Support Vent Sodium 141 Potassium 3.8 Chloride 104 Carbon Dioxide 31 Anion Gap 6 L BUN 14.5 Creatinine 0.4 L Est GFR (CKD-EPI)AfAm 141.75 Est GFR (CKD-EPI)NonAf 122.30 POC Glucometer 198 306 Random Glucose 207 H Lactic Acid Calcium 6.8 L* Phosphorus 2.0 L Magnesium 1.7 L Iron TIBC Iron Saturation Unsaturated IBC Ferritin Total Bilirubin 0.4 AST 14 L ALT 7 L Alkaline Phosphatase 170 H Creatine Kinase Troponin I Total Protein 3.9 L Albumin 1.1 L Prealbumin Triglycerides Cholesterol Total LDL Cholesterol HDL Cholesterol Beta-Hydroxybutyrate Urine Color Urine Appearance Urine pH Ur Specific Downing Urine Protein Urine Glucose (UA) Urine Ketones Urine Blood Urine Nitrite Urine Bilirubin Urine Urobilinogen Ur Leukocyte Esterase Urine WBC (Auto) Urine RBC (Auto) U Epithel Cells (Auto) Urine Bacteria (Auto) Stool Occult Blood Acetone, Qual B-Hydroxybutyrate 03/24/19 03/24/19 03/25/19 17:45 21:40 03:08 WBC RBC Hgb Hct MCV MCH MCHC RDW Plt Count MPV Absolute Neuts (auto) Total Counted Neutrophils % Neutrophils % (Manual) Band Neutrophils % Lymphocytes % Lymphocytes % (Manual) Monocytes % Monocytes % (Manual) Eosinophils % Eosinophils % (Manual) Basophils % Basophils % (Manual) Myelocytes % (Man) Promyelocytes % (Man) Blast Cells % (Manual) Nucleated RBC % Metamyelocytes Hypochromia Toxic Granulation Platelet Estimate Platelet Comment Polychromasia Poikilocytosis Anisocytosis Microcytosis Macrocytosis Spherocytes Target Cells Tear Drop Cells Ovalocytes Jose Antonio Cells Schistocytes PT with INR INR PTT (Actin FS) Fibrinogen Puncture Site ABG pH ABG pCO2 at Pt Temp ABG pO2 at Pt Temp ABG HCO3 ABG O2 Sat (Measured) ABG O2 Content ABG Base Excess Atul Test O2 Delivery Device Oxygen Flow Rate Vent Mode Vent Rate PEEP Pressure Support Vent Sodium Potassium Chloride Carbon Dioxide Anion Gap BUN Creatinine Est GFR (CKD-EPI)AfAm Est GFR (CKD-EPI)NonAf POC Glucometer [phone] Random Glucose Lactic Acid Calcium Phosphorus Magnesium Iron TIBC Iron Saturation Unsaturated IBC Ferritin Total Bilirubin AST ALT Alkaline Phosphatase Creatine Kinase Troponin I Total Protein Albumin Prealbumin Triglycerides Cholesterol Total LDL Cholesterol HDL Cholesterol Beta-Hydroxybutyrate Urine Color Urine Appearance Urine pH Ur Specific Downing Urine Protein Urine Glucose (UA) Urine Ketones Urine Blood Urine Nitrite Urine Bilirubin Urine Urobilinogen Ur Leukocyte Esterase Urine WBC (Auto) Urine RBC (Auto) U Epithel Cells (Auto) Urine Bacteria (Auto) Stool Occult Blood Acetone, Qual B-Hydroxybutyrate 03/25/19 03/25/19 03/25/19 05:30 05:30 05:32 WBC 8.6 RBC 3.42 L Hgb 8.9 L Hct 27.2 L MCV 79.4 L MCH 26.1 MCHC 32.8 RDW 23.7 H Plt Count 179 D MPV 8.2 Absolute Neuts (auto) 5.8 Total Counted Neutrophils % 67.7 Neutrophils % (Manual) Band Neutrophils % Lymphocytes % 23.2 Lymphocytes % (Manual) Monocytes % 6.0 Monocytes % (Manual) Eosinophils % 2.2 Eosinophils % (Manual) Basophils % 0.9 Basophils % (Manual) Myelocytes % (Man) Promyelocytes % (Man) Blast Cells % (Manual) Nucleated RBC % 0 Metamyelocytes Hypochromia Toxic Granulation Platelet Estimate Platelet Comment Polychromasia Poikilocytosis Anisocytosis Microcytosis Macrocytosis Spherocytes Target Cells Tear Drop Cells Ovalocytes Jose Antonio Cells Schistocytes PT with INR INR PTT (Actin FS) Fibrinogen Puncture Site ABG pH ABG pCO2 at Pt Temp ABG pO2 at Pt Temp ABG HCO3 ABG O2 Sat (Measured) ABG O2 Content ABG Base Excess Atul Test O2 Delivery Device Oxygen Flow Rate Vent Mode Vent Rate PEEP Pressure Support Vent Sodium 142 Potassium 3.5 Chloride 104 Carbon Dioxide 31 Anion Gap 7 L BUN 16.2 Creatinine 0.4 L Est GFR (CKD-EPI)AfAm 141.75 Est GFR (CKD-EPI)NonAf 122.30 POC Glucometer 118 Random Glucose 120 H Lactic Acid Calcium 7.2 L Phosphorus 2.0 L Magnesium 1.9 Iron TIBC Iron Saturation Unsaturated IBC Ferritin Total Bilirubin 0.2 AST 16 ALT 10 L Alkaline Phosphatase 184 H Creatine Kinase Troponin I Total Protein 4.6 L Albumin 1.2 L Prealbumin Triglycerides Cholesterol Total LDL Cholesterol HDL Cholesterol Beta-Hydroxybutyrate Urine Color Urine Appearance Urine pH Ur Specific Downing Urine Protein Urine Glucose (UA) Urine Ketones Urine Blood Urine Nitrite Urine Bilirubin Urine Urobilinogen Ur Leukocyte Esterase Urine WBC (Auto) Urine RBC (Auto) U Epithel Cells (Auto) Urine Bacteria (Auto) Stool Occult Blood Acetone, Qual B-Hydroxybutyrate 03/25/19 03/25/19 03/25/19 10:53 12:55 14:23 WBC RBC Hgb Hct MCV MCH MCHC RDW Plt Count MPV Absolute Neuts (auto) Total Counted Neutrophils % Neutrophils % (Manual) Band Neutrophils % Lymphocytes % Lymphocytes % (Manual) Monocytes % Monocytes % (Manual) Eosinophils % Eosinophils % (Manual) Basophils % Basophils % (Manual) Myelocytes % (Man) Promyelocytes % (Man) Blast Cells % (Manual) Nucleated RBC % Metamyelocytes Hypochromia Toxic Granulation Platelet Estimate Platelet Comment Polychromasia Poikilocytosis Anisocytosis Microcytosis Macrocytosis Spherocytes Target Cells Tear Drop Cells Ovalocytes Jose Antonio Cells Schistocytes PT with INR INR PTT (Actin FS) Fibrinogen Puncture Site ABG pH ABG pCO2 at Pt Temp ABG pO2 at Pt Temp ABG HCO3 ABG O2 Sat (Measured) ABG O2 Content ABG Base Excess Atul Test O2 Delivery Device Oxygen Flow Rate Vent Mode Vent Rate PEEP Pressure Support Vent Sodium 137 Potassium 3.7 Chloride 101 Carbon Dioxide 27 Anion Gap 9 BUN 19.9 H Creatinine 0.6 Est GFR (CKD-EPI)AfAm 124.05 Est GFR (CKD-EPI)NonAf 107.03 POC Glucometer 401 186 Random Glucose 312 H Lactic Acid Calcium 7.3 L Phosphorus Magnesium Iron TIBC Iron Saturation Unsaturated IBC Ferritin Total Bilirubin 0.3 AST 18 ALT 12 L Alkaline Phosphatase 216 H Creatine Kinase Troponin I Total Protein 5.2 L Albumin 1.4 L Prealbumin Triglycerides Cholesterol Total LDL Cholesterol HDL Cholesterol Beta-Hydroxybutyrate Urine Color Urine Appearance Urine pH Ur Specific Downing Urine Protein Urine Glucose (UA) Urine Ketones Urine Blood Urine Nitrite Urine Bilirubin Urine Urobilinogen Ur Leukocyte Esterase Urine WBC (Auto) Urine RBC (Auto) U Epithel Cells (Auto) Urine Bacteria (Auto) Stool Occult Blood Acetone, Qual B-Hydroxybutyrate 03/25/19 03/25/19 03/26/19 16:10 20:48 01:48 WBC RBC Hgb Hct MCV MCH MCHC RDW Plt Count MPV Absolute Neuts (auto) Total Counted Neutrophils % Neutrophils % (Manual) Band Neutrophils % Lymphocytes % Lymphocytes % (Manual) Monocytes % Monocytes % (Manual) Eosinophils % Eosinophils % (Manual) Basophils % Basophils % (Manual) Myelocytes % (Man) Promyelocytes % (Man) Blast Cells % (Manual) Nucleated RBC % Metamyelocytes Hypochromia Toxic Granulation Platelet Estimate Platelet Comment Polychromasia Poikilocytosis Anisocytosis Microcytosis Macrocytosis Spherocytes Target Cells Tear Drop Cells Ovalocytes Jose Antonio Cells Schistocytes PT with INR INR PTT (Actin FS) Fibrinogen Puncture Site ABG pH ABG pCO2 at Pt Temp ABG pO2 at Pt Temp ABG HCO3 ABG O2 Sat (Measured) ABG O2 Content ABG Base Excess Atul Test O2 Delivery Device Oxygen Flow Rate Vent Mode Vent Rate PEEP Pressure Support Vent Sodium Potassium Chloride Carbon Dioxide Anion Gap BUN Creatinine Est GFR (CKD-EPI)AfAm Est GFR (CKD-EPI)NonAf POC Glucometer [phone] Random Glucose Lactic Acid Calcium Phosphorus Magnesium Iron TIBC Iron Saturation Unsaturated IBC Ferritin Total Bilirubin AST ALT Alkaline Phosphatase Creatine Kinase Troponin I Total Protein Albumin Prealbumin Triglycerides Cholesterol Total LDL Cholesterol HDL Cholesterol Beta-Hydroxybutyrate Urine Color Urine Appearance Urine pH Ur Specific Downing Urine Protein Urine Glucose (UA) Urine Ketones Urine Blood Urine Nitrite Urine Bilirubin Urine Urobilinogen Ur Leukocyte Esterase Urine WBC (Auto) Urine RBC (Auto) U Epithel Cells (Auto) Urine Bacteria (Auto) Stool Occult Blood Acetone, Qual B-Hydroxybutyrate 03/26/19 03/26/19 03/26/19 05:06 06:00 06:00 WBC RBC Hgb Hct MCV MCH MCHC RDW Plt Count MPV Absolute Neuts (auto) Total Counted Neutrophils % Neutrophils % (Manual) Band Neutrophils % Lymphocytes % Lymphocytes % (Manual) Monocytes % Monocytes % (Manual) Eosinophils % Eosinophils % (Manual) Basophils % Basophils % (Manual) Myelocytes % (Man) Promyelocytes % (Man) Blast Cells % (Manual) Nucleated RBC % Metamyelocytes Hypochromia Toxic Granulation Platelet Estimate Platelet Comment Polychromasia Poikilocytosis Anisocytosis Microcytosis Macrocytosis Spherocytes Target Cells Tear Drop Cells Ovalocytes Thornton Cells Schistocytes PT with INR 11.20 INR 0.95 PTT (Actin FS) 29.7 Fibrinogen Puncture Site ABG pH ABG pCO2 at Pt Temp ABG pO2 at Pt Temp ABG HCO3 ABG O2 Sat (Measured) ABG O2 Content ABG Base Excess Atul Test O2 Delivery Device Oxygen Flow Rate Vent Mode Vent Rate PEEP Pressure Support Vent Sodium 139 Potassium 3.8 Chloride 102 Carbon Dioxide 32 Anion Gap 5 L BUN 14.5 Creatinine 0.3 L Est GFR (CKD-EPI)AfAm 155.82 Est GFR (CKD-EPI)NonAf 134.44 POC Glucometer 153 Random Glucose 151 H Lactic Acid Calcium 7.1 L Phosphorus Magnesium Iron TIBC Iron Saturation Unsaturated IBC Ferritin Total Bilirubin 0.2 AST 15 ALT 9 L Alkaline Phosphatase 155 H Creatine Kinase Troponin I Total Protein 4.3 L Albumin 1.2 L Prealbumin Triglycerides Cholesterol Total LDL Cholesterol HDL Cholesterol Beta-Hydroxybutyrate Urine Color Urine Appearance Urine pH Ur Specific Downing Urine Protein Urine Glucose (UA) Urine Ketones Urine Blood Urine Nitrite Urine Bilirubin Urine Urobilinogen Ur Leukocyte Esterase Urine WBC (Auto) Urine RBC (Auto) U Epithel Cells (Auto) Urine Bacteria (Auto) Stool Occult Blood Acetone, Qual B-Hydroxybutyrate 03/26/19 03/26/19 03/26/19 06:00 06:00 10:53 WBC 8.5 RBC 2.92 L Hgb 7.6 L Hct 23.5 L MCV 80.5 MCH 26.1 MCHC 32.4 RDW 23.5 H Plt Count 231 D MPV 8.1 Absolute Neuts (auto) 5.4 Total Counted Neutrophils % 63.6 Neutrophils % (Manual) Band Neutrophils % Lymphocytes % 24.4 Lymphocytes % (Manual) Monocytes % 7.8 Monocytes % (Manual) Eosinophils % 3.2 Eosinophils % (Manual) Basophils % 1.0 Basophils % (Manual) Myelocytes % (Man) Promyelocytes % (Man) Blast Cells % (Manual) Nucleated RBC % 0 Metamyelocytes Hypochromia Toxic Granulation Platelet Estimate Platelet Comment Polychromasia Poikilocytosis Anisocytosis Microcytosis Macrocytosis Spherocytes Target Cells Tear Drop Cells Ovalocytes [place] Cells Schistocytes PT with INR INR PTT (Actin FS) Fibrinogen Puncture Site ABG pH ABG pCO2 at Pt Temp ABG pO2 at Pt Temp ABG HCO3 ABG O2 Sat (Measured) ABG O2 Content ABG Base Excess Atul Test O2 Delivery Device Oxygen Flow Rate Vent Mode Vent Rate PEEP Pressure Support Vent Sodium Potassium Chloride Carbon Dioxide Anion Gap BUN Creatinine Est GFR (CKD-EPI)AfAm Est GFR (CKD-EPI)NonAf POC Glucometer 356 Random Glucose Lactic Acid 2.4 H* Calcium Phosphorus Magnesium Iron TIBC Iron Saturation Unsaturated IBC Ferritin Total Bilirubin AST ALT Alkaline Phosphatase Creatine Kinase Troponin I Total Protein Albumin Prealbumin Triglycerides Cholesterol Total LDL Cholesterol HDL Cholesterol Beta-Hydroxybutyrate Urine Color Urine Appearance Urine pH Ur Specific Downing Urine Protein Urine Glucose (UA) Urine Ketones Urine Blood Urine Nitrite Urine Bilirubin Urine Urobilinogen Ur Leukocyte Esterase Urine WBC (Auto) Urine RBC (Auto) U Epithel Cells (Auto) Urine Bacteria (Auto) Stool Occult Blood Acetone, Qual B-Hydroxybutyrate 03/26/19 03/26/19 03/26/19 13:52 18:35 20:40 WBC 8.7 RBC 3.44 L Hgb 9.2 L Hct 28.1 L D MCV 81.7 MCH 26.7 MCHC 32.6 RDW 22.3 H Plt Count 262 MPV 8.1 Absolute Neuts (auto) 5.7 Total Counted Neutrophils % 65.2 Neutrophils % (Manual) Band Neutrophils % Lymphocytes % 20.6 Lymphocytes % (Manual) Monocytes % 9.8 Monocytes % (Manual) Eosinophils % 2.6 Eosinophils % (Manual) Basophils % 1.8 Basophils % (Manual) Myelocytes % (Man) Promyelocytes % (Man) Blast Cells % (Manual) Nucleated RBC % 0 Metamyelocytes Hypochromia Toxic Granulation Platelet Estimate Platelet Comment Polychromasia Poikilocytosis Anisocytosis Microcytosis Macrocytosis Spherocytes Target Cells Tear Drop Cells Ovalocytes [place] Cells Schistocytes PT with INR INR PTT (Actin FS) Fibrinogen Puncture Site ABG pH ABG pCO2 at Pt Temp ABG pO2 at Pt Temp ABG HCO3 ABG O2 Sat (Measured) ABG O2 Content ABG Base Excess Atul Test O2 Delivery Device Oxygen Flow Rate Vent Mode Vent Rate PEEP Pressure Support Vent Sodium Potassium Chloride Carbon Dioxide Anion Gap BUN Creatinine Est GFR (CKD-EPI)AfAm Est GFR (CKD-EPI)NonAf POC Glucometer 347 239 Random Glucose Lactic Acid Calcium Phosphorus Magnesium Iron TIBC Iron Saturation Unsaturated IBC Ferritin Total Bilirubin AST ALT Alkaline Phosphatase Creatine Kinase Troponin I Total Protein Albumin Prealbumin Triglycerides Cholesterol Total LDL Cholesterol HDL Cholesterol Beta-Hydroxybutyrate Urine Color Urine Appearance Urine pH Ur Specific [place] Urine Protein Urine Glucose (UA) Urine Ketones Urine Blood Urine Nitrite Urine Bilirubin Urine Urobilinogen Ur Leukocyte Esterase Urine WBC (Auto) Urine RBC (Auto) U Epithel Cells (Auto) Urine Bacteria (Auto) Stool Occult Blood Acetone, Qual B-Hydroxybutyrate 03/26/19 03/27/19 03/27/19 22:42 02:18 06:00 WBC 7.1 RBC 3.22 L Hgb 8.8 L Hct 26.3 L MCV 81.6 MCH 27.2 MCHC 33.3 RDW 22.2 H Plt Count 269 MPV 7.8 Absolute Neuts (auto) 4.3 Total Counted Neutrophils % 60.6 Neutrophils % (Manual) Band Neutrophils % Lymphocytes % 22.8 Lymphocytes % (Manual) Monocytes % 12.0 H Monocytes % (Manual) Eosinophils % 3.9 Eosinophils % (Manual) Basophils % 0.7 Basophils % (Manual) Myelocytes % (Man) Promyelocytes % (Man) Blast Cells % (Manual) Nucleated RBC % 0 Metamyelocytes Hypochromia Toxic Granulation Platelet Estimate Adequate Platelet Comment Giant platelets Polychromasia Poikilocytosis 1+ Anisocytosis 2+ Microcytosis 1+ Macrocytosis Spherocytes 1+ Target Cells 1+ Tear Drop Cells 1+ Ovalocytes Thornton Cells Schistocytes PT with INR INR PTT (Actin FS) Fibrinogen Puncture Site ABG pH ABG pCO2 at Pt Temp ABG pO2 at Pt Temp ABG HCO3 ABG O2 Sat (Measured) ABG O2 Content ABG Base Excess Atul Test O2 Delivery Device Oxygen Flow Rate Vent Mode Vent Rate PEEP Pressure Support Vent Sodium Potassium Chloride Carbon Dioxide Anion Gap BUN Creatinine Est GFR (CKD-EPI)AfAm Est GFR (CKD-EPI)NonAf POC Glucometer 122 173 Random Glucose Lactic Acid Calcium Phosphorus Magnesium Iron TIBC Iron Saturation Unsaturated IBC Ferritin Total Bilirubin AST ALT Alkaline Phosphatase Creatine Kinase Troponin I Total Protein Albumin Prealbumin Triglycerides Cholesterol Total LDL Cholesterol HDL Cholesterol Beta-Hydroxybutyrate Urine Color Urine Appearance Urine pH Ur Specific [place] Urine Protein Urine Glucose (UA) Urine Ketones Urine Blood Urine Nitrite Urine Bilirubin Urine Urobilinogen Ur Leukocyte Esterase Urine WBC (Auto) Urine RBC (Auto) U Epithel Cells (Auto) Urine Bacteria (Auto) Stool Occult Blood Acetone, Qual B-Hydroxybutyrate 03/27/19 03/27/19 03/27/19 06:00 06:43 11:10 WBC RBC Hgb Hct MCV MCH MCHC RDW Plt Count MPV Absolute Neuts (auto) Total Counted Neutrophils % Neutrophils % (Manual) Band Neutrophils % Lymphocytes % Lymphocytes % (Manual) Monocytes % Monocytes % (Manual) Eosinophils % Eosinophils % (Manual) Basophils % Basophils % (Manual) Myelocytes % (Man) Promyelocytes % (Man) Blast Cells % (Manual) Nucleated RBC % Metamyelocytes Hypochromia Toxic Granulation Platelet Estimate Platelet Comment Polychromasia Poikilocytosis Anisocytosis Microcytosis Macrocytosis Spherocytes Target Cells Tear Drop Cells Ovalocytes Jose Antonio Cells Schistocytes PT with INR INR PTT (Actin FS) Fibrinogen Puncture Site ABG pH ABG pCO2 at Pt Temp ABG pO2 at Pt Temp ABG HCO3 ABG O2 Sat (Measured) ABG O2 Content ABG Base Excess Atul Test O2 Delivery Device Oxygen Flow Rate Vent Mode Vent Rate PEEP Pressure Support Vent Sodium 139 Potassium 3.8 Chloride 102 Carbon Dioxide 31 Anion Gap 5 L BUN 16.5 Creatinine 0.3 L Est GFR (CKD-EPI)AfAm 155.82 Est GFR (CKD-EPI)NonAf 134.44 POC Glucometer 311 254 Random Glucose 260 H Lactic Acid Calcium 7.3 L Phosphorus 1.2 L Magnesium 1.8 Iron TIBC Iron Saturation Unsaturated IBC Ferritin Total Bilirubin 0.2 AST 19 ALT 10 L Alkaline Phosphatase 157 H Creatine Kinase Troponin I Total Protein 4.5 L Albumin 1.2 L Prealbumin Triglycerides Cholesterol Total LDL Cholesterol HDL Cholesterol Beta-Hydroxybutyrate Urine Color Urine Appearance Urine pH Ur Specific [place] Urine Protein Urine Glucose (UA) Urine Ketones Urine Blood Urine Nitrite Urine Bilirubin Urine Urobilinogen Ur Leukocyte Esterase Urine WBC (Auto) Urine RBC (Auto) U Epithel Cells (Auto) Urine Bacteria (Auto) Stool Occult Blood Acetone, Qual B-Hydroxybutyrate 03/27/19 03/27/19 03/27/19 14:16 18:17 21:18 WBC RBC Hgb Hct MCV MCH MCHC RDW Plt Count MPV Absolute Neuts (auto) Total Counted Neutrophils % Neutrophils % (Manual) Band Neutrophils % Lymphocytes % Lymphocytes % (Manual) Monocytes % Monocytes % (Manual) Eosinophils % Eosinophils % (Manual) Basophils % Basophils % (Manual) Myelocytes % (Man) Promyelocytes % (Man) Blast Cells % (Manual) Nucleated RBC % Metamyelocytes Hypochromia Toxic Granulation Platelet Estimate Platelet Comment Polychromasia Poikilocytosis Anisocytosis Microcytosis Macrocytosis Spherocytes Target Cells Tear Drop Cells Ovalocytes [place] Cells Schistocytes PT with INR INR PTT (Actin FS) Fibrinogen Puncture Site ABG pH ABG pCO2 at Pt Temp ABG pO2 at Pt Temp ABG HCO3 ABG O2 Sat (Measured) ABG O2 Content ABG Base Excess Atul Test O2 Delivery Device Oxygen Flow Rate Vent Mode Vent Rate PEEP Pressure Support Vent Sodium Potassium Chloride Carbon Dioxide Anion Gap BUN Creatinine Est GFR (CKD-EPI)AfAm Est GFR (CKD-EPI)NonAf POC Glucometer [phone] Random Glucose Lactic Acid Calcium Phosphorus Magnesium Iron TIBC Iron Saturation Unsaturated IBC Ferritin Total Bilirubin AST ALT Alkaline Phosphatase Creatine Kinase Troponin I Total Protein Albumin Prealbumin Triglycerides Cholesterol Total LDL Cholesterol HDL Cholesterol Beta-Hydroxybutyrate Urine Color Urine Appearance Urine pH Ur Specific [place] Urine Protein Urine Glucose (UA) Urine Ketones Urine Blood Urine Nitrite Urine Bilirubin Urine Urobilinogen Ur Leukocyte Esterase Urine WBC (Auto) Urine RBC (Auto) U Epithel Cells (Auto) Urine Bacteria (Auto) Stool Occult Blood Acetone, Qual B-Hydroxybutyrate 03/28/19 03/28/19 03/28/19 03:32 05:50 05:50 WBC 7.5 RBC 3.28 L Hgb 8.8 L Hct 27.3 L MCV 83.1 MCH 26.9 MCHC 32.4 RDW 22.9 H Plt Count 409 D MPV 7.8 Absolute Neuts (auto) 4.1 Total Counted Neutrophils % 54.9 Neutrophils % (Manual) Band Neutrophils % Lymphocytes % 26.7 Lymphocytes % (Manual) Monocytes % 13.0 H Monocytes % (Manual) Eosinophils % 3.9 Eosinophils % (Manual) Basophils % 1.5 Basophils % (Manual) Myelocytes % (Man) Promyelocytes % (Man) Blast Cells % (Manual) Nucleated RBC % 0 Metamyelocytes Hypochromia Toxic Granulation Platelet Estimate Platelet Comment Polychromasia Poikilocytosis Anisocytosis Microcytosis Macrocytosis Spherocytes Target Cells Tear Drop Cells Ovalocytes Jose Antonio Cells Schistocytes PT with INR INR PTT (Actin FS) Fibrinogen Puncture Site ABG pH ABG pCO2 at Pt Temp ABG pO2 at Pt Temp ABG HCO3 ABG O2 Sat (Measured) ABG O2 Content ABG Base Excess Atul Test O2 Delivery Device Oxygen Flow Rate Vent Mode Vent Rate PEEP Pressure Support Vent Sodium 141 Potassium 3.8 Chloride 102 Carbon Dioxide 33 H Anion Gap 6 L BUN 13.4 Creatinine 0.4 L Est GFR (CKD-EPI)AfAm 141.75 Est GFR (CKD-EPI)NonAf 122.30 POC Glucometer 218 Random Glucose 251 H Lactic Acid Calcium 7.6 L Phosphorus 1.9 L Magnesium 2.0 Iron TIBC Iron Saturation Unsaturated IBC Ferritin Total Bilirubin 0.2 AST 25 ALT 13 Alkaline Phosphatase 163 H Creatine Kinase Troponin I Total Protein 4.9 L Albumin 1.4 L Prealbumin Triglycerides Cholesterol Total LDL Cholesterol HDL Cholesterol Beta-Hydroxybutyrate Urine Color Urine Appearance Urine pH Ur Specific [place] Urine Protein Urine Glucose (UA) Urine Ketones Urine Blood Urine Nitrite Urine Bilirubin Urine Urobilinogen Ur Leukocyte Esterase Urine WBC (Auto) Urine RBC (Auto) U Epithel Cells (Auto) Urine Bacteria (Auto) Stool Occult Blood Acetone, Qual B-Hydroxybutyrate 03/28/19 03/28/19 03/28/19 06:22 10:07 10:59 WBC RBC Hgb Hct MCV MCH MCHC RDW Plt Count MPV Absolute Neuts (auto) Total Counted Neutrophils % Neutrophils % (Manual) Band Neutrophils % Lymphocytes % Lymphocytes % (Manual) Monocytes % Monocytes % (Manual) Eosinophils % Eosinophils % (Manual) Basophils % Basophils % (Manual) Myelocytes % (Man) Promyelocytes % (Man) Blast Cells % (Manual) Nucleated RBC % Metamyelocytes Hypochromia Toxic Granulation Platelet Estimate Platelet Comment Polychromasia Poikilocytosis Anisocytosis Microcytosis Macrocytosis Spherocytes Target Cells Tear Drop Cells Ovalocytes Thornton Cells Schistocytes PT with INR INR PTT (Actin FS) Fibrinogen Puncture Site ABG pH ABG pCO2 at Pt Temp ABG pO2 at Pt Temp ABG HCO3 ABG O2 Sat (Measured) ABG O2 Content ABG Base Excess Atul Test O2 Delivery Device Oxygen Flow Rate Vent Mode Vent Rate PEEP Pressure Support Vent Sodium Potassium Chloride Carbon Dioxide Anion Gap BUN Creatinine Est GFR (CKD-EPI)AfAm Est GFR (CKD-EPI)NonAf POC Glucometer 222 136 Random Glucose Lactic Acid Calcium Phosphorus Magnesium Iron TIBC Iron Saturation Unsaturated IBC Ferritin Total Bilirubin AST ALT Alkaline Phosphatase Creatine Kinase Troponin I Total Protein Albumin Prealbumin Triglycerides Cholesterol Total LDL Cholesterol HDL Cholesterol Beta-Hydroxybutyrate Urine Color Yellow Urine Appearance Clear Urine pH 6.0 Ur Specific [place] 1.029 Urine Protein Trace Urine Glucose (UA) Negative Urine Ketones Trace Urine Blood Nht Urine Nitrite Negative Urine Bilirubin Negative Urine Urobilinogen 0.2 Ur Leukocyte Esterase Negative Urine WBC (Auto) #forced Urine RBC (Auto) U Epithel Cells (Auto) Urine Bacteria (Auto) Stool Occult Blood Acetone, Qual B-Hydroxybutyrate 03/28/19 03/28/19 03/28/19 14:56 14:58 18:18 WBC RBC Hgb Hct MCV MCH MCHC RDW Plt Count MPV Absolute Neuts (auto) Total Counted Neutrophils % Neutrophils % (Manual) Band Neutrophils % Lymphocytes % Lymphocytes % (Manual) Monocytes % Monocytes % (Manual) Eosinophils % Eosinophils % (Manual) Basophils % Basophils % (Manual) Myelocytes % (Man) Promyelocytes % (Man) Blast Cells % (Manual) Nucleated RBC % Metamyelocytes Hypochromia Toxic Granulation Platelet Estimate Platelet Comment Polychromasia Poikilocytosis Anisocytosis Microcytosis Macrocytosis Spherocytes Target Cells Tear Drop Cells Ovalocytes Jose Antonio Cells Schistocytes PT with INR INR PTT (Actin FS) Fibrinogen Puncture Site ABG pH ABG pCO2 at Pt Temp ABG pO2 at Pt Temp ABG HCO3 ABG O2 Sat (Measured) ABG O2 Content ABG Base Excess Atul Test O2 Delivery Device Oxygen Flow Rate Vent Mode Vent Rate PEEP Pressure Support Vent Sodium Potassium Chloride Carbon Dioxide Anion Gap BUN Creatinine Est GFR (CKD-EPI)AfAm Est GFR (CKD-EPI)NonAf POC Glucometer [phone] Random Glucose Lactic Acid Calcium Phosphorus Magnesium Iron TIBC Iron Saturation Unsaturated IBC Ferritin Total Bilirubin AST ALT Alkaline Phosphatase Creatine Kinase Troponin I Total Protein Albumin Prealbumin Triglycerides Cholesterol Total LDL Cholesterol HDL Cholesterol Beta-Hydroxybutyrate Urine Color Urine Appearance Urine pH Ur Specific [place] Urine Protein Urine Glucose (UA) Urine Ketones Urine Blood Urine Nitrite Urine Bilirubin Urine Urobilinogen Ur Leukocyte Esterase Urine WBC (Auto) Urine RBC (Auto) U Epithel Cells (Auto) Urine Bacteria (Auto) Stool Occult Blood Acetone, Qual B-Hydroxybutyrate 03/28/19 03/28/19 03/29/19 21:40 23:04 01:34 WBC RBC Hgb Hct MCV MCH MCHC RDW Plt Count MPV Absolute Neuts (auto) Total Counted Neutrophils % Neutrophils % (Manual) Band Neutrophils % Lymphocytes % Lymphocytes % (Manual) Monocytes % Monocytes % (Manual) Eosinophils % Eosinophils % (Manual) Basophils % Basophils % (Manual) Myelocytes % (Man) Promyelocytes % (Man) Blast Cells % (Manual) Nucleated RBC % Metamyelocytes Hypochromia Toxic Granulation Platelet Estimate Platelet Comment Polychromasia Poikilocytosis Anisocytosis Microcytosis Macrocytosis Spherocytes Target Cells Tear Drop Cells Ovalocytes Jose Antonio Cells Schistocytes PT with INR INR PTT (Actin FS) Fibrinogen Puncture Site ABG pH ABG pCO2 at Pt Temp ABG pO2 at Pt Temp ABG HCO3 ABG O2 Sat (Measured) ABG O2 Content ABG Base Excess Atul Test O2 Delivery Device Oxygen Flow Rate Vent Mode Vent Rate PEEP Pressure Support Vent Sodium Potassium Chloride Carbon Dioxide Anion Gap BUN Creatinine Est GFR (CKD-EPI)AfAm Est GFR (CKD-EPI)NonAf POC Glucometer [phone] Random Glucose Lactic Acid Calcium Phosphorus Magnesium Iron TIBC Iron Saturation Unsaturated IBC Ferritin Total Bilirubin AST ALT Alkaline Phosphatase Creatine Kinase Troponin I Total Protein Albumin Prealbumin Triglycerides Cholesterol Total LDL Cholesterol HDL Cholesterol Beta-Hydroxybutyrate Urine Color Urine Appearance Urine pH Ur Specific [place] Urine Protein Urine Glucose (UA) Urine Ketones Urine Blood Urine Nitrite Urine Bilirubin Urine Urobilinogen Ur Leukocyte Esterase Urine WBC (Auto) Urine RBC (Auto) U Epithel Cells (Auto) Urine Bacteria (Auto) Stool Occult Blood Acetone, Qual B-Hydroxybutyrate 03/29/19 03/29/19 03/29/19 05:08 06:00 06:00 WBC 8.4 RBC 3.08 L Hgb 8.5 L Hct 25.6 L MCV 83.2 MCH 27.8 MCHC 33.4 RDW 23.7 H Plt Count 511 H D MPV 7.6 Absolute Neuts (auto) Total Counted Neutrophils % Neutrophils % (Manual) Band Neutrophils % Lymphocytes % Lymphocytes % (Manual) Monocytes % Monocytes % (Manual) Eosinophils % Eosinophils % (Manual) Basophils % Basophils % (Manual) Myelocytes % (Man) Promyelocytes % (Man) Blast Cells % (Manual) Nucleated RBC % Metamyelocytes Hypochromia Toxic Granulation Platelet Estimate Platelet Comment Polychromasia Poikilocytosis Anisocytosis Microcytosis Macrocytosis Spherocytes Target Cells Tear Drop Cells Ovalocytes [place] Cells Schistocytes PT with INR INR PTT (Actin FS) Fibrinogen Puncture Site ABG pH ABG pCO2 at Pt Temp ABG pO2 at Pt Temp ABG HCO3 ABG O2 Sat (Measured) ABG O2 Content ABG Base Excess Taul Test O2 Delivery Device Oxygen Flow Rate Vent Mode Vent Rate PEEP Pressure Support Vent Sodium 140 Potassium 3.9 Chloride 99 Carbon Dioxide 35 H Anion Gap 6 L BUN 16.3 Creatinine 0.4 L Est GFR (CKD-EPI)AfAm 141.75 Est GFR (CKD-EPI)NonAf 122.30 POC Glucometer 150 Random Glucose 264 H Lactic Acid Calcium 7.4 L Phosphorus 1.9 L Magnesium 2.1 Iron TIBC Iron Saturation Unsaturated IBC Ferritin Total Bilirubin 0.2 AST 25 ALT 12 L Alkaline Phosphatase 156 H Creatine Kinase Troponin I Total Protein 5.2 L Albumin 1.5 L Prealbumin Triglycerides Cholesterol Total LDL Cholesterol HDL Cholesterol Beta-Hydroxybutyrate Urine Color Urine Appearance Urine pH Ur Specific [place] Urine Protein Urine Glucose (UA) Urine Ketones Urine Blood Urine Nitrite Urine Bilirubin Urine Urobilinogen Ur Leukocyte Esterase Urine WBC (Auto) Urine RBC (Auto) U Epithel Cells (Auto) Urine Bacteria (Auto) Stool Occult Blood Acetone, Qual B-Hydroxybutyrate 03/29/19 03/29/19 03/29/19 10:32 10:34 14:03 WBC RBC Hgb Hct MCV MCH MCHC RDW Plt Count MPV Absolute Neuts (auto) Total Counted Neutrophils % Neutrophils % (Manual) Band Neutrophils % Lymphocytes % Lymphocytes % (Manual) Monocytes % Monocytes % (Manual) Eosinophils % Eosinophils % (Manual) Basophils % Basophils % (Manual) Myelocytes % (Man) Promyelocytes % (Man) Blast Cells % (Manual) Nucleated RBC % Metamyelocytes Hypochromia Toxic Granulation Platelet Estimate Platelet Comment Polychromasia Poikilocytosis Anisocytosis Microcytosis Macrocytosis Spherocytes Target Cells Tear Drop Cells Ovalocytes Jose Antonio Cells Schistocytes PT with INR INR PTT (Actin FS) Fibrinogen Puncture Site ABG pH ABG pCO2 at Pt Temp ABG pO2 at Pt Temp ABG HCO3 ABG O2 Sat (Measured) ABG O2 Content ABG Base Excess Atul Test O2 Delivery Device Oxygen Flow Rate Vent Mode Vent Rate PEEP Pressure Support Vent Sodium Potassium Chloride Carbon Dioxide Anion Gap BUN Creatinine Est GFR (CKD-EPI)AfAm Est GFR (CKD-EPI)NonAf POC Glucometer [phone] Random Glucose Lactic Acid Calcium Phosphorus Magnesium Iron TIBC Iron Saturation Unsaturated IBC Ferritin Total Bilirubin AST ALT Alkaline Phosphatase Creatine Kinase Troponin I Total Protein Albumin Prealbumin Triglycerides Cholesterol Total LDL Cholesterol HDL Cholesterol Beta-Hydroxybutyrate Urine Color Urine Appearance Urine pH Ur Specific [place] Urine Protein Urine Glucose (UA) Urine Ketones Urine Blood Urine Nitrite Urine Bilirubin Urine Urobilinogen Ur Leukocyte Esterase Urine WBC (Auto) Urine RBC (Auto) U Epithel Cells (Auto) Urine Bacteria (Auto) Stool Occult Blood Acetone, Qual B-Hydroxybutyrate 03/29/19 03/29/19 03/29/19 18:00 19:41 21:54 WBC RBC Hgb Hct MCV MCH MCHC RDW Plt Count MPV Absolute Neuts (auto) Total Counted Neutrophils % Neutrophils % (Manual) Band Neutrophils % Lymphocytes % Lymphocytes % (Manual) Monocytes % Monocytes % (Manual) Eosinophils % Eosinophils % (Manual) Basophils % Basophils % (Manual) Myelocytes % (Man) Promyelocytes % (Man) Blast Cells % (Manual) Nucleated RBC % Metamyelocytes Hypochromia Toxic Granulation Platelet Estimate Platelet Comment Polychromasia Poikilocytosis Anisocytosis Microcytosis Macrocytosis Spherocytes Target Cells Tear Drop Cells Ovalocytes [place] Cells Schistocytes PT with INR INR PTT (Actin FS) Fibrinogen Puncture Site ABG pH ABG pCO2 at Pt Temp ABG pO2 at Pt Temp ABG HCO3 ABG O2 Sat (Measured) ABG O2 Content ABG Base Excess Atul Test O2 Delivery Device Oxygen Flow Rate Vent Mode Vent Rate PEEP Pressure Support Vent Sodium Potassium Chloride Carbon Dioxide Anion Gap BUN Creatinine Est GFR (CKD-EPI)AfAm Est GFR (CKD-EPI)NonAf POC Glucometer 70 [phone] Random Glucose Lactic Acid Calcium Phosphorus Magnesium Iron TIBC Iron Saturation Unsaturated IBC Ferritin Total Bilirubin AST ALT Alkaline Phosphatase Creatine Kinase Troponin I Total Protein Albumin Prealbumin Triglycerides Cholesterol Total LDL Cholesterol HDL Cholesterol Beta-Hydroxybutyrate Urine Color Urine Appearance Urine pH Ur Specific [place] Urine Protein Urine Glucose (UA) Urine Ketones Urine Blood Urine Nitrite Urine Bilirubin Urine Urobilinogen Ur Leukocyte Esterase Urine WBC (Auto) Urine RBC (Auto) U Epithel Cells (Auto) Urine Bacteria (Auto) Stool Occult Blood Acetone, Qual B-Hydroxybutyrate 03/30/19 03/30/19 03/30/19 01:39 06:06 06:39 WBC RBC Hgb Hct MCV MCH MCHC RDW Plt Count MPV Absolute Neuts (auto) Total Counted Neutrophils % Neutrophils % (Manual) Band Neutrophils % Lymphocytes % Lymphocytes % (Manual) Monocytes % Monocytes % (Manual) Eosinophils % Eosinophils % (Manual) Basophils % Basophils % (Manual) Myelocytes % (Man) Promyelocytes % (Man) Blast Cells % (Manual) Nucleated RBC % Metamyelocytes Hypochromia Toxic Granulation Platelet Estimate Platelet Comment Polychromasia Poikilocytosis Anisocytosis Microcytosis Macrocytosis Spherocytes Target Cells Tear Drop Cells Ovalocytes [place] Cells Schistocytes PT with INR INR PTT (Actin FS) Fibrinogen Puncture Site ABG pH ABG pCO2 at Pt Temp ABG pO2 at Pt Temp ABG HCO3 ABG O2 Sat (Measured) ABG O2 Content ABG Base Excess Atul Test O2 Delivery Device Oxygen Flow Rate Vent Mode Vent Rate PEEP Pressure Support Vent Sodium Potassium Chloride Carbon Dioxide Anion Gap BUN Creatinine Est GFR (CKD-EPI)AfAm Est GFR (CKD-EPI)NonAf POC Glucometer [phone] Random Glucose Lactic Acid Calcium Phosphorus Magnesium Iron TIBC Iron Saturation Unsaturated IBC Ferritin Total Bilirubin AST ALT Alkaline Phosphatase Creatine Kinase Troponin I Total Protein Albumin Prealbumin Triglycerides Cholesterol Total LDL Cholesterol HDL Cholesterol Beta-Hydroxybutyrate Urine Color Urine Appearance Urine pH Ur Specific [place] Urine Protein Urine Glucose (UA) Urine Ketones Urine Blood Urine Nitrite Urine Bilirubin Urine Urobilinogen Ur Leukocyte Esterase Urine WBC (Auto) Urine RBC (Auto) U Epithel Cells (Auto) Urine Bacteria (Auto) Stool Occult Blood Acetone, Qual B-Hydroxybutyrate 03/30/19 03/30/19 03/30/19 08:50 08:50 10:29 WBC [employer] RBC [employer] Hgb [employer] Hct [employer] MCV [employer] MCH [employer] MCHC [employer] Work[employer] RDW [employer]ounds Worker Plt Count [employer] Worker MPV [employer]ounds Worker Absolute Neuts (auto) Grounds Worker Total Counted Neutrophils % Grounds Worker Neutrophils % (Manual) Band Neutrophils % Lymphocytes % Grounds Worker Lymphocytes % (Manual) Monocytes % Grounds Worker Monocytes % (Manual) Eosinophils % [employer] Worker Eosinophils % (Manual) Basophils % Grounds Worker Basophils % (Manual) Myelocytes % (Man) Promyelocytes % (Man) Blast Cells % (Manual) Nucleated RBC % [employer] Worker Metamyelocytes Hypochromia Toxic Granulation Platelet Estimate Platelet Comment Polychromasia Poikilocytosis Anisocytosis Microcytosis Macrocytosis Spherocytes Target Cells Tear Drop Cells Ovalocytes Thornton Cells Schistocytes PT with INR INR PTT (Actin FS) Fibrinogen Puncture Site ABG pH ABG pCO2 at Pt Temp ABG pO2 at Pt Temp ABG HCO3 ABG O2 Sat (Measured) ABG O2 Content ABG Base Excess Atul Test O2 Delivery Device Oxygen Flow Rate Vent Mode Vent Rate PEEP Pressure Support Vent Sodium 147 H Potassium 3.5 Chloride 105 Carbon Dioxide 34 H Anion Gap 7 L BUN 17.6 Creatinine 0.3 L Est GFR (CKD-EPI)AfAm 155.82 Est GFR (CKD-EPI)NonAf 134.44 POC Glucometer 222 Random Glucose 99 Lactic Acid Calcium 7.9 L Phosphorus 2.5 Magnesium 2.2 Iron TIBC Iron Saturation Unsaturated IBC Ferritin Total Bilirubin 0.2 AST 21 ALT 11 L Alkaline Phosphatase 137 H Creatine Kinase Troponin I Total Protein 5.2 L Albumin 1.5 L Prealbumin Triglycerides Cholesterol Total LDL Cholesterol HDL Cholesterol Beta-Hydroxybutyrate Urine Color Urine Appearance Urine pH Ur Specific [place] Urine Protein Urine Glucose (UA) Urine Ketones Urine Blood Urine Nitrite Urine Bilirubin Urine Urobilinogen Ur Leukocyte Esterase Urine WBC (Auto) Urine RBC (Auto) U Epithel Cells (Auto) Urine Bacteria (Auto) Stool Occult Blood Acetone, Qual B-Hydroxybutyrate 03/30/19 03/30/19 03/30/19 14:32 18:21 21:53 WBC RBC Hgb Hct MCV MCH MCHC RDW Plt Count MPV Absolute Neuts (auto) Total Counted Neutrophils % Neutrophils % (Manual) Band Neutrophils % Lymphocytes % Lymphocytes % (Manual) Monocytes % Monocytes % (Manual) Eosinophils % Eosinophils % (Manual) Basophils % Basophils % (Manual) Myelocytes % (Man) Promyelocytes % (Man) Blast Cells % (Manual) Nucleated RBC % Metamyelocytes Hypochromia Toxic Granulation Platelet Estimate Platelet Comment Polychromasia Poikilocytosis Anisocytosis Microcytosis Macrocytosis Spherocytes Target Cells Tear Drop Cells Ovalocytes Jose Antonio Cells Schistocytes PT with INR INR PTT (Actin FS) Fibrinogen Puncture Site ABG pH ABG pCO2 at Pt Temp ABG pO2 at Pt Temp ABG HCO3 ABG O2 Sat (Measured) ABG O2 Content ABG Base Excess Atul Test O2 Delivery Device Oxygen Flow Rate Vent Mode Vent Rate PEEP Pressure Support Vent Sodium Potassium Chloride Carbon Dioxide Anion Gap BUN Creatinine Est GFR (CKD-EPI)AfAm Est GFR (CKD-EPI)NonAf POC Glucometer [phone] Random Glucose Lactic Acid Calcium Phosphorus Magnesium Iron TIBC Iron Saturation Unsaturated IBC Ferritin Total Bilirubin AST ALT Alkaline Phosphatase Creatine Kinase Troponin I Total Protein Albumin Prealbumin Triglycerides Cholesterol Total LDL Cholesterol HDL Cholesterol Beta-Hydroxybutyrate Urine Color Urine Appearance Urine pH Ur Specific [place] Urine Protein Urine Glucose (UA) Urine Ketones Urine Blood Urine Nitrite Urine Bilirubin Urine Urobilinogen Ur Leukocyte Esterase Urine WBC (Auto) Urine RBC (Auto) U Epithel Cells (Auto) Urine Bacteria (Auto) Stool Occult Blood Acetone, Qual B-Hydroxybutyrate 03/31/19 03/31/19 03/31/19 02:50 06:00 06:00 WBC 7.7 RBC 2.58 L Hgb 7.1 L Hct 22.0 L MCV 85.0 MCH 27.4 MCHC 32.3 RDW 24.3 H Plt Count 540 H MPV 7.7 Absolute Neuts (auto) 6.0 Total Counted Neutrophils % 77.6 D Neutrophils % (Manual) Band Neutrophils % Lymphocytes % 12.9 D Lymphocytes % (Manual) Monocytes % 7.1 Monocytes % (Manual) Eosinophils % 0.6 D Eosinophils % (Manual) Basophils % 1.8 Basophils % (Manual) Myelocytes % (Man) Promyelocytes % (Man) Blast Cells % (Manual) Nucleated RBC % 0 Metamyelocytes Hypochromia Toxic Granulation Platelet Estimate Platelet Comment Polychromasia Poikilocytosis Anisocytosis Microcytosis Macrocytosis Spherocytes Target Cells Tear Drop Cells Ovalocytes Jose Antonio Cells Schistocytes PT with INR INR PTT (Actin FS) Fibrinogen Puncture Site ABG pH ABG pCO2 at Pt Temp ABG pO2 at Pt Temp ABG HCO3 ABG O2 Sat (Measured) ABG O2 Content ABG Base Excess Atul Test O2 Delivery Device Oxygen Flow Rate Vent Mode Vent Rate PEEP Pressure Support Vent Sodium 143 Potassium 3.1 L Chloride 105 Carbon Dioxide 26 Anion Gap 12 BUN 15.9 Creatinine 0.5 L Est GFR (CKD-EPI)AfAm 131.72 Est GFR (CKD-EPI)NonAf 113.65 POC Glucometer 387 Random Glucose 157 H Lactic Acid Calcium 7.6 L Phosphorus 1.7 L Magnesium 2.0 Iron TIBC Iron Saturation Unsaturated IBC Ferritin Total Bilirubin 0.3 AST 19 ALT 13 Alkaline Phosphatase 130 H Creatine Kinase Troponin I Total Protein 5.0 L Albumin 1.6 L Prealbumin Triglycerides Cholesterol Total LDL Cholesterol HDL Cholesterol Beta-Hydroxybutyrate Urine Color Urine Appearance Urine pH Ur Specific Downing Urine Protein Urine Glucose (UA) Urine Ketones Urine Blood Urine Nitrite Urine Bilirubin Urine Urobilinogen Ur Leukocyte Esterase Urine WBC (Auto) Urine RBC (Auto) U Epithel Cells (Auto) Urine Bacteria (Auto) Stool Occult Blood Acetone, Qual B-Hydroxybutyrate 03/31/19 03/31/19 03/31/19 06:43 12:18 15:09 WBC RBC Hgb Hct MCV MCH MCHC RDW Plt Count MPV Absolute Neuts (auto) Total Counted Neutrophils % Neutrophils % (Manual) Band Neutrophils % Lymphocytes % Lymphocytes % (Manual) Monocytes % Monocytes % (Manual) Eosinophils % Eosinophils % (Manual) Basophils % Basophils % (Manual) Myelocytes % (Man) Promyelocytes % (Man) Blast Cells % (Manual) Nucleated RBC % Metamyelocytes Hypochromia Toxic Granulation Platelet Estimate Platelet Comment Polychromasia Poikilocytosis Anisocytosis Microcytosis Macrocytosis Spherocytes Target Cells Tear Drop Cells Ovalocytes Jose Antonio Cells Schistocytes PT with INR INR PTT (Actin FS) Fibrinogen Puncture Site ABG pH ABG pCO2 at Pt Temp ABG pO2 at Pt Temp ABG HCO3 ABG O2 Sat (Measured) ABG O2 Content ABG Base Excess Atul Test O2 Delivery Device Oxygen Flow Rate Vent Mode Vent Rate PEEP Pressure Support Vent Sodium Potassium Chloride Carbon Dioxide Anion Gap BUN Creatinine Est GFR (CKD-EPI)AfAm Est GFR (CKD-EPI)NonAf POC Glucometer [phone] Random Glucose Lactic Acid Calcium Phosphorus Magnesium Iron TIBC Iron Saturation Unsaturated IBC Ferritin Total Bilirubin AST ALT Alkaline Phosphatase Creatine Kinase Troponin I Total Protein Albumin Prealbumin Triglycerides Cholesterol Total LDL Cholesterol HDL Cholesterol Beta-Hydroxybutyrate Urine Color Urine Appearance Urine pH Ur Specific Downing Urine Protein Urine Glucose (UA) Urine Ketones Urine Blood Urine Nitrite Urine Bilirubin Urine Urobilinogen Ur Leukocyte Esterase Urine WBC (Auto) Urine RBC (Auto) U Epithel Cells (Auto) Urine Bacteria (Auto) Stool Occult Blood Acetone, Qual B-Hydroxybutyrate 03/31/19 03/31/19 04/01/19 17:22 22:27 02:36 WBC RBC Hgb Hct MCV MCH MCHC RDW Plt Count MPV Absolute Neuts (auto) Total Counted Neutrophils % Neutrophils % (Manual) Band Neutrophils % Lymphocytes % Lymphocytes % (Manual) Monocytes % Monocytes % (Manual) Eosinophils % Eosinophils % (Manual) Basophils % Basophils % (Manual) Myelocytes % (Man) Promyelocytes % (Man) Blast Cells % (Manual) Nucleated RBC % Metamyelocytes Hypochromia Toxic Granulation Platelet Estimate Platelet Comment Polychromasia Poikilocytosis Anisocytosis Microcytosis Macrocytosis Spherocytes Target Cells Tear Drop Cells Ovalocytes [place] Cells Schistocytes PT with INR INR PTT (Actin FS) Fibrinogen Puncture Site ABG pH ABG pCO2 at Pt Temp ABG pO2 at Pt Temp ABG HCO3 ABG O2 Sat (Measured) ABG O2 Content ABG Base Excess Atul Test O2 Delivery Device Oxygen Flow Rate Vent Mode Vent Rate PEEP Pressure Support Vent Sodium Potassium Chloride Carbon Dioxide Anion Gap BUN Creatinine Est GFR (CKD-EPI)AfAm Est GFR (CKD-EPI)NonAf POC Glucometer [phone] Random Glucose Lactic Acid Calcium Phosphorus Magnesium Iron TIBC Iron Saturation Unsaturated IBC Ferritin Total Bilirubin AST ALT Alkaline Phosphatase Creatine Kinase Troponin I Total Protein Albumin Prealbumin Triglycerides Cholesterol Total LDL Cholesterol HDL Cholesterol Beta-Hydroxybutyrate Urine Color Urine Appearance Urine pH Ur Specific Downing Urine Protein Urine Glucose (UA) Urine Ketones Urine Blood Urine Nitrite Urine Bilirubin Urine Urobilinogen Ur Leukocyte Esterase Urine WBC (Auto) Urine RBC (Auto) U Epithel Cells (Auto) Urine Bacteria (Auto) Stool Occult Blood Acetone, Qual B-Hydroxybutyrate 04/01/19 04/01/19 04/01/19 06:07 06:43 06:43 WBC 12.8 H RBC 3.43 L Hgb 9.4 L Hct 29.8 L D MCV 87.0 MCH 27.5 MCHC 31.6 L RDW 23.2 H Plt Count 691 H D MPV 7.5 Absolute Neuts (auto) 11.4 H Total Counted Neutrophils % 88.8 H Neutrophils % (Manual) Band Neutrophils % Lymphocytes % 5.8 L D Lymphocytes % (Manual) Monocytes % 4.8 Monocytes % (Manual) Eosinophils % 0.0 D Eosinophils % (Manual) Basophils % 0.6 Basophils % (Manual) Myelocytes % (Man) Promyelocytes % (Man) Blast Cells % (Manual) Nucleated RBC % 0 Metamyelocytes Hypochromia Toxic Granulation Platelet Estimate Platelet Comment Polychromasia Poikilocytosis Anisocytosis Microcytosis Macrocytosis Spherocytes Target Cells Tear Drop Cells Ovalocytes Jose Antonio Cells Schistocytes PT with INR INR PTT (Actin FS) Fibrinogen Puncture Site ABG pH ABG pCO2 at Pt Temp ABG pO2 at Pt Temp ABG HCO3 ABG O2 Sat (Measured) ABG O2 Content ABG Base Excess Atul Test O2 Delivery Device Oxygen Flow Rate Vent Mode Vent Rate PEEP Pressure Support Vent Sodium 149 H Potassium 3.4 L Chloride 112 H Carbon Dioxide 16 L Anion Gap 20 H BUN 15.4 Creatinine 0.5 L Est GFR (CKD-EPI)AfAm 131.72 Est GFR (CKD-EPI)NonAf 113.65 POC Glucometer 247 Random Glucose 254 H Lactic Acid Calcium 8.4 L Phosphorus Magnesium 2.2 Iron TIBC Iron Saturation Unsaturated IBC Ferritin Total Bilirubin 0.6 AST 27 ALT 17 Alkaline Phosphatase 174 H Creatine Kinase Troponin I Total Protein 6.5 Albumin 2.1 L Prealbumin Triglycerides Cholesterol Total LDL Cholesterol HDL Cholesterol Beta-Hydroxybutyrate Urine Color Urine Appearance Urine pH Ur Specific Downing Urine Protein Urine Glucose (UA) Urine Ketones Urine Blood Urine Nitrite Urine Bilirubin Urine Urobilinogen Ur Leukocyte Esterase Urine WBC (Auto) Urine RBC (Auto) U Epithel Cells (Auto) Urine Bacteria (Auto) Stool Occult Blood Acetone, Qual B-Hydroxybutyrate 04/01/19 04/01/19 04/01/19 08:27 08:50 10:00 WBC RBC Hgb Hct MCV MCH MCHC RDW Plt Count MPV Absolute Neuts (auto) Total Counted Neutrophils % Neutrophils % (Manual) Band Neutrophils % Lymphocytes % Lymphocytes % (Manual) Monocytes % Monocytes % (Manual) Eosinophils % Eosinophils % (Manual) Basophils % Basophils % (Manual) Myelocytes % (Man) Promyelocytes % (Man) Blast Cells % (Manual) Nucleated RBC % Metamyelocytes Hypochromia Toxic Granulation Platelet Estimate Platelet Comment Polychromasia Poikilocytosis Anisocytosis Microcytosis Macrocytosis Spherocytes Target Cells Tear Drop Cells Ovalocytes Thornton Cells Schistocytes PT with INR INR PTT (Actin FS) Fibrinogen Puncture Site Right brachial ABG pH 7.32 L ABG pCO2 at Pt Temp 17.5 L ABG pO2 at Pt Temp 115 H ABG HCO3 8.8 L ABG O2 Sat (Measured) 97.7 ABG O2 Content 12.7 ABG Base Excess -15.9 L Atul Test Positive O2 Delivery Device Room air Oxygen Flow Rate 21% Vent Mode Vent Rate PEEP Pressure Support Vent Sodium 148 H Potassium 3.8 Chloride 112 H Carbon Dioxide 7 L Anion Gap 29 H BUN 17.2 Creatinine 0.6 Est GFR (CKD-EPI)AfAm 124.05 Est GFR (CKD-EPI)NonAf 107.03 POC Glucometer Random Glucose 488 H* Lactic Acid Calcium 8.1 L Phosphorus Magnesium Iron TIBC Iron Saturation Unsaturated IBC Ferritin Total Bilirubin AST ALT Alkaline Phosphatase Creatine Kinase Troponin I Total Protein Albumin Prealbumin Triglycerides Cholesterol Total LDL Cholesterol HDL Cholesterol Beta-Hydroxybutyrate Urine Color Urine Appearance Urine pH Ur Specific Downing Urine Protein Urine Glucose (UA) Urine Ketones Urine Blood Urine Nitrite Urine Bilirubin Urine Urobilinogen Ur Leukocyte Esterase Urine WBC (Auto) Urine RBC (Auto) U Epithel Cells (Auto) Urine Bacteria (Auto) Stool Occult Blood Acetone, Qual Positive moderate 2+ H B-Hydroxybutyrate 04/01/19 04/01/19 04/01/19 10:32 11:10 12:59 WBC RBC Hgb Hct MCV MCH MCHC RDW Plt Count MPV Absolute Neuts (auto) Total Counted Neutrophils % Neutrophils % (Manual) Band Neutrophils % Lymphocytes % Lymphocytes % (Manual) Monocytes % Monocytes % (Manual) Eosinophils % Eosinophils % (Manual) Basophils % Basophils % (Manual) Myelocytes % (Man) Promyelocytes % (Man) Blast Cells % (Manual) Nucleated RBC % Metamyelocytes Hypochromia Toxic Granulation Platelet Estimate Platelet Comment Polychromasia Poikilocytosis Anisocytosis Microcytosis Macrocytosis Spherocytes Target Cells Tear Drop Cells Ovalocytes Thornton Cells Schistocytes PT with INR INR PTT (Actin FS) Fibrinogen Puncture Site Right radial ABG pH 7.08 L* ABG pCO2 at Pt Temp 13.9 L* ABG pO2 at Pt Temp 163 H ABG HCO3 4.0 L ABG O2 Sat (Measured) 97.5 ABG O2 Content 12.1 ABG Base Excess -24.8 L Atul Test Positive O2 Delivery Device Oxygen Flow Rate Yes Vent Mode Vent Rate PEEP Pressure Support Vent Sodium Potassium Chloride Carbon Dioxide Anion Gap BUN Creatinine Est GFR (CKD-EPI)AfAm Est GFR (CKD-EPI)NonAf POC Glucometer 440 Random Glucose Lactic Acid 2.4 H* Calcium Phosphorus Magnesium Iron TIBC Iron Saturation Unsaturated IBC Ferritin Total Bilirubin AST ALT Alkaline Phosphatase Creatine Kinase Troponin I Total Protein Albumin Prealbumin Triglycerides Cholesterol Total LDL Cholesterol HDL Cholesterol Beta-Hydroxybutyrate Urine Color Urine Appearance Urine pH Ur Specific Downing Urine Protein Urine Glucose (UA) Urine Ketones Urine Blood Urine Nitrite Urine Bilirubin Urine Urobilinogen Ur Leukocyte Esterase Urine WBC (Auto) Urine RBC (Auto) U Epithel Cells (Auto) Urine Bacteria (Auto) Stool Occult Blood Acetone, Qual B-Hydroxybutyrate 04/01/19 04/01/19 04/01/19 12:59 15:29 17:05 WBC RBC Hgb Hct MCV MCH MCHC RDW Plt Count MPV Absolute Neuts (auto) Total Counted Neutrophils % Neutrophils % (Manual) Band Neutrophils % Lymphocytes % Lymphocytes % (Manual) Monocytes % Monocytes % (Manual) Eosinophils % Eosinophils % (Manual) Basophils % Basophils % (Manual) Myelocytes % (Man) Promyelocytes % (Man) Blast Cells % (Manual) Nucleated RBC % Metamyelocytes Hypochromia Toxic Granulation Platelet Estimate Platelet Comment Polychromasia Poikilocytosis Anisocytosis Microcytosis Macrocytosis Spherocytes Target Cells Tear Drop Cells Ovalocytes [place] Cells Schistocytes PT with INR INR PTT (Actin FS) Fibrinogen Puncture Site ABG pH ABG pCO2 at Pt Temp ABG pO2 at Pt Temp ABG HCO3 ABG O2 Sat (Measured) ABG O2 Content ABG Base Excess Atul Test O2 Delivery Device Oxygen Flow Rate Vent Mode Vent Rate PEEP Pressure Support Vent Sodium Potassium Chloride Carbon Dioxide Anion Gap BUN Creatinine Est GFR (CKD-EPI)AfAm Est GFR (CKD-EPI)NonAf POC Glucometer 228 238 Random Glucose Lactic Acid Calcium Phosphorus Magnesium Iron TIBC Iron Saturation Unsaturated IBC Ferritin Total Bilirubin AST ALT Alkaline Phosphatase Creatine Kinase Troponin I Total Protein Albumin Prealbumin Triglycerides Cholesterol Total LDL Cholesterol HDL Cholesterol Beta-Hydroxybutyrate Urine Color Urine Appearance Urine pH Ur Specific Downing Urine Protein Urine Glucose (UA) Urine Ketones Urine Blood Urine Nitrite Urine Bilirubin Urine Urobilinogen Ur Leukocyte Esterase Urine WBC (Auto) Urine RBC (Auto) U Epithel Cells (Auto) Urine Bacteria (Auto) Stool Occult Blood Acetone, Qual B-Hydroxybutyrate 124.00 H 04/01/19 04/01/19 04/01/19 18:21 18:40 19:21 WBC RBC Hgb Hct MCV MCH MCHC RDW Plt Count MPV Absolute Neuts (auto) Total Counted Neutrophils % Neutrophils % (Manual) Band Neutrophils % Lymphocytes % Lymphocytes % (Manual) Monocytes % Monocytes % (Manual) Eosinophils % Eosinophils % (Manual) Basophils % Basophils % (Manual) Myelocytes % (Man) Promyelocytes % (Man) Blast Cells % (Manual) Nucleated RBC % Metamyelocytes Hypochromia Toxic Granulation Platelet Estimate Platelet Comment Polychromasia Poikilocytosis Anisocytosis Microcytosis Macrocytosis Spherocytes Target Cells Tear Drop Cells Ovalocytes Jose Antonio Cells Schistocytes PT with INR INR PTT (Actin FS) Fibrinogen Puncture Site Right brachial ABG pH 7.32 L ABG pCO2 at Pt Temp 36.2 ABG pO2 at Pt Temp 181 H ABG HCO3 18.2 L ABG O2 Sat (Measured) 99.4 H ABG O2 Content 14.2 ABG Base Excess -6.8 L Atul Test Positive O2 Delivery Device Mech. vent. Oxygen Flow Rate 50% Vent Mode A/c Vent Rate 14 PEEP Pressure Support Vent 350 Sodium Potassium Chloride Carbon Dioxide Anion Gap BUN Creatinine Est GFR (CKD-EPI)AfAm Est GFR (CKD-EPI)NonAf POC Glucometer 160 118 Random Glucose Lactic Acid Calcium Phosphorus Magnesium Iron TIBC Iron Saturation Unsaturated IBC Ferritin Total Bilirubin AST ALT Alkaline Phosphatase Creatine Kinase Troponin I Total Protein Albumin Prealbumin Triglycerides Cholesterol Total LDL Cholesterol HDL Cholesterol Beta-Hydroxybutyrate Urine Color Urine Appearance Urine pH Ur Specific Downing Urine Protein Urine Glucose (UA) Urine Ketones Urine Blood Urine Nitrite Urine Bilirubin Urine Urobilinogen Ur Leukocyte Esterase Urine WBC (Auto) Urine RBC (Auto) U Epithel Cells (Auto) Urine Bacteria (Auto) Stool Occult Blood Acetone, Qual B-Hydroxybutyrate 04/01/19 04/01/19 04/01/19 20:00 20:14 21:55 WBC RBC Hgb Hct MCV MCH MCHC RDW Plt Count MPV Absolute Neuts (auto) Total Counted Neutrophils % Neutrophils % (Manual) Band Neutrophils % Lymphocytes % Lymphocytes % (Manual) Monocytes % Monocytes % (Manual) Eosinophils % Eosinophils % (Manual) Basophils % Basophils % (Manual) Myelocytes % (Man) Promyelocytes % (Man) Blast Cells % (Manual) Nucleated RBC % Metamyelocytes Hypochromia Toxic Granulation Platelet Estimate Platelet Comment Polychromasia Poikilocytosis Anisocytosis Microcytosis Macrocytosis Spherocytes Target Cells Tear Drop Cells Ovalocytes Jose Antonio Cells Schistocytes PT with INR INR PTT (Actin FS) Fibrinogen Puncture Site ABG pH ABG pCO2 at Pt Temp ABG pO2 at Pt Temp ABG HCO3 ABG O2 Sat (Measured) ABG O2 Content ABG Base Excess Atul Test O2 Delivery Device Oxygen Flow Rate Vent Mode Vent Rate PEEP Pressure Support Vent Sodium 154 H Potassium 3.0 L Chloride 116 H Carbon Dioxide 23 Anion Gap 15 BUN 17.9 Creatinine 0.9 Est GFR (CKD-EPI)AfAm 87.02 Est GFR (CKD-EPI)NonAf 75.08 POC Glucometer 110 176 Random Glucose 96 Lactic Acid Calcium 8.1 L Phosphorus Magnesium Iron TIBC Iron Saturation Unsaturated IBC Ferritin Total Bilirubin AST ALT Alkaline Phosphatase Creatine Kinase Troponin I Total Protein Albumin Prealbumin Triglycerides Cholesterol Total LDL Cholesterol HDL Cholesterol Beta-Hydroxybutyrate Urine Color Urine Appearance Urine pH Ur Specific Downing Urine Protein Urine Glucose (UA) Urine Ketones Urine Blood Urine Nitrite Urine Bilirubin Urine Urobilinogen Ur Leukocyte Esterase Urine WBC (Auto) Urine RBC (Auto) U Epithel Cells (Auto) Urine Bacteria (Auto) Stool Occult Blood Acetone, Qual B-Hydroxybutyrate 04/02/19 04/02/19 04/02/19 00:47 01:00 01:00 WBC RBC Hgb Hct MCV MCH MCHC RDW Plt Count MPV Absolute Neuts (auto) Total Counted Neutrophils % Neutrophils % (Manual) Band Neutrophils % Lymphocytes % Lymphocytes % (Manual) Monocytes % Monocytes % (Manual) Eosinophils % Eosinophils % (Manual) Basophils % Basophils % (Manual) Myelocytes % (Man) Promyelocytes % (Man) Blast Cells % (Manual) Nucleated RBC % Metamyelocytes Hypochromia Toxic Granulation Platelet Estimate Platelet Comment Polychromasia Poikilocytosis Anisocytosis Microcytosis Macrocytosis Spherocytes Target Cells Tear Drop Cells Ovalocytes Jose Antonio Cells Schistocytes PT with INR INR PTT (Actin FS) Fibrinogen Puncture Site ABG pH ABG pCO2 at Pt Temp ABG pO2 at Pt Temp ABG HCO3 ABG O2 Sat (Measured) ABG O2 Content ABG Base Excess Atul Test O2 Delivery Device Oxygen Flow Rate Vent Mode Vent Rate PEEP Pressure Support Vent Sodium 155 H Potassium 3.2 L Chloride 120 H Carbon Dioxide 25 Anion Gap 9 BUN 20.8 H Creatinine 0.9 Est GFR (CKD-EPI)AfAm 87.02 Est GFR (CKD-EPI)NonAf 75.08 POC Glucometer 82 Random Glucose 78 Lactic Acid 1.8 Calcium 7.8 L Phosphorus Magnesium Iron TIBC Iron Saturation Unsaturated IBC Ferritin Total Bilirubin AST ALT Alkaline Phosphatase Creatine Kinase Troponin I Total Protein Albumin Prealbumin Triglycerides Cholesterol Total LDL Cholesterol HDL Cholesterol Beta-Hydroxybutyrate Urine Color Urine Appearance Urine pH Ur Specific Downing Urine Protein Urine Glucose (UA) Urine Ketones Urine Blood Urine Nitrite Urine Bilirubin Urine Urobilinogen Ur Leukocyte Esterase Urine WBC (Auto) Urine RBC (Auto) U Epithel Cells (Auto) Urine Bacteria (Auto) Stool Occult Blood Acetone, Qual B-Hydroxybutyrate 04/02/19 04/02/19 04/02/19 02:08 03:06 04:19 WBC RBC Hgb Hct MCV MCH MCHC RDW Plt Count MPV Absolute Neuts (auto) Total Counted Neutrophils % Neutrophils % (Manual) Band Neutrophils % Lymphocytes % Lymphocytes % (Manual) Monocytes % Monocytes % (Manual) Eosinophils % Eosinophils % (Manual) Basophils % Basophils % (Manual) Myelocytes % (Man) Promyelocytes % (Man) Blast Cells % (Manual) Nucleated RBC % Metamyelocytes Hypochromia Toxic Granulation Platelet Estimate Platelet Comment Polychromasia Poikilocytosis Anisocytosis Microcytosis Macrocytosis Spherocytes Target Cells Tear Drop Cells Ovalocytes [place] Cells Schistocytes PT with INR INR PTT (Actin FS) Fibrinogen Puncture Site ABG pH ABG pCO2 at Pt Temp ABG pO2 at Pt Temp ABG HCO3 ABG O2 Sat (Measured) ABG O2 Content ABG Base Excess Atul Test O2 Delivery Device Oxygen Flow Rate Vent Mode Vent Rate PEEP Pressure Support Vent Sodium Potassium Chloride Carbon Dioxide Anion Gap BUN Creatinine Est GFR (CKD-EPI)AfAm Est GFR (CKD-EPI)NonAf POC Glucometer [phone] Random Glucose Lactic Acid Calcium Phosphorus Magnesium Iron TIBC Iron Saturation Unsaturated IBC Ferritin Total Bilirubin AST ALT Alkaline Phosphatase Creatine Kinase Troponin I Total Protein Albumin Prealbumin Triglycerides Cholesterol Total LDL Cholesterol HDL Cholesterol Beta-Hydroxybutyrate Urine Color Urine Appearance Urine pH Ur Specific Downing Urine Protein Urine Glucose (UA) Urine Ketones Urine Blood Urine Nitrite Urine Bilirubin Urine Urobilinogen Ur Leukocyte Esterase Urine WBC (Auto) Urine RBC (Auto) U Epithel Cells (Auto) Urine Bacteria (Auto) Stool Occult Blood Acetone, Qual B-Hydroxybutyrate 04/02/19 04/02/19 04/02/19 05:30 05:32 06:00 WBC 11.0 H RBC 2.87 L Hgb 8.2 L Hct 24.6 L D MCV 85.7 MCH 28.6 MCHC 33.4 RDW 22.7 H Plt Count 594 H MPV 7.5 Absolute Neuts (auto) 8.3 H Total Counted Neutrophils % 75.5 Neutrophils % (Manual) Band Neutrophils % Lymphocytes % 17.6 D Lymphocytes % (Manual) Monocytes % 5.5 Monocytes % (Manual) Eosinophils % 0.7 D Eosinophils % (Manual) Basophils % 0.7 Basophils % (Manual) Myelocytes % (Man) Promyelocytes % (Man) Blast Cells % (Manual) Nucleated RBC % 0 Metamyelocytes Hypochromia Toxic Granulation Platelet Estimate Platelet Comment Polychromasia Poikilocytosis Anisocytosis Microcytosis Macrocytosis Spherocytes Target Cells Tear Drop Cells Ovalocytes Jose Antonio Cells Schistocytes PT with INR INR PTT (Actin FS) Fibrinogen Puncture Site ABG pH ABG pCO2 at Pt Temp ABG pO2 at Pt Temp ABG HCO3 ABG O2 Sat (Measured) ABG O2 Content ABG Base Excess Atul Test O2 Delivery Device Oxygen Flow Rate Vent Mode Vent Rate PEEP Pressure Support Vent Sodium 153 H Potassium 3.5 Chloride 120 H Carbon Dioxide 25 Anion Gap 9 BUN 22.1 H Creatinine 0.9 Est GFR (CKD-EPI)AfAm 87.02 Est GFR (CKD-EPI)NonAf 75.08 POC Glucometer 146 Random Glucose 152 H Lactic Acid Calcium 7.9 L Phosphorus Magnesium 2.2 Iron TIBC Iron Saturation Unsaturated IBC Ferritin Total Bilirubin 0.2 AST 22 ALT 14 Alkaline Phosphatase 151 H Creatine Kinase Troponin I Total Protein 5.5 L Albumin 1.7 L Prealbumin Triglycerides Cholesterol Total LDL Cholesterol HDL Cholesterol Beta-Hydroxybutyrate Urine Color Urine Appearance Urine pH Ur Specific Downing Urine Protein Urine Glucose (UA) Urine Ketones Urine Blood Urine Nitrite Urine Bilirubin Urine Urobilinogen Ur Leukocyte Esterase Urine WBC (Auto) Urine RBC (Auto) U Epithel Cells (Auto) Urine Bacteria (Auto) Stool Occult Blood Acetone, Qual B-Hydroxybutyrate 04/02/19 04/02/19 04/02/19 06:05 07:06 08:50 WBC RBC Hgb Hct MCV MCH MCHC RDW Plt Count MPV Absolute Neuts (auto) Total Counted Neutrophils % Neutrophils % (Manual) Band Neutrophils % Lymphocytes % Lymphocytes % (Manual) Monocytes % Monocytes % (Manual) Eosinophils % Eosinophils % (Manual) Basophils % Basophils % (Manual) Myelocytes % (Man) Promyelocytes % (Man) Blast Cells % (Manual) Nucleated RBC % Metamyelocytes Hypochromia Toxic Granulation Platelet Estimate Platelet Comment Polychromasia Poikilocytosis Anisocytosis Microcytosis Macrocytosis Spherocytes Target Cells Tear Drop Cells Ovalocytes Jose Antonio Cells Schistocytes PT with INR INR PTT (Actin FS) Fibrinogen Puncture Site Left radial ABG pH 7.40 ABG pCO2 at Pt Temp 39.5 ABG pO2 at Pt Temp 132 H ABG HCO3 24.2 ABG O2 Sat (Measured) 99.1 H ABG O2 Content 11.9 ABG Base Excess 0 Atul Test Positive O2 Delivery Device Mech vent Oxygen Flow Rate 50 Vent Mode A/c Vent Rate 14 PEEP 5.0 Pressure Support Vent 350 Sodium Potassium Chloride Carbon Dioxide Anion Gap BUN Creatinine Est GFR (CKD-EPI)AfAm Est GFR (CKD-EPI)NonAf POC Glucometer 219 150 Random Glucose Lactic Acid Calcium Phosphorus Magnesium Iron TIBC Iron Saturation Unsaturated IBC Ferritin Total Bilirubin AST ALT Alkaline Phosphatase Creatine Kinase Troponin I Total Protein Albumin Prealbumin Triglycerides Cholesterol Total LDL Cholesterol HDL Cholesterol Beta-Hydroxybutyrate Urine Color Urine Appearance Urine pH Ur Specific Downing Urine Protein Urine Glucose (UA) Urine Ketones Urine Blood Urine Nitrite Urine Bilirubin Urine Urobilinogen Ur Leukocyte Esterase Urine WBC (Auto) Urine RBC (Auto) U Epithel Cells (Auto) Urine Bacteria (Auto) Stool Occult Blood Acetone, Qual B-Hydroxybutyrate 04/02/19 04/02/19 04/02/19 10:30 14:47 15:48 WBC RBC Hgb Hct MCV MCH MCHC RDW Plt Count MPV Absolute Neuts (auto) Total Counted Neutrophils % Neutrophils % (Manual) Band Neutrophils % Lymphocytes % Lymphocytes % (Manual) Monocytes % Monocytes % (Manual) Eosinophils % Eosinophils % (Manual) Basophils % Basophils % (Manual) Myelocytes % (Man) Promyelocytes % (Man) Blast Cells % (Manual) Nucleated RBC % Metamyelocytes Hypochromia Toxic Granulation Platelet Estimate Platelet Comment Polychromasia Poikilocytosis Anisocytosis Microcytosis Macrocytosis Spherocytes Target Cells Tear Drop Cells Ovalocytes Jose Antonio Cells Schistocytes PT with INR INR PTT (Actin FS) Fibrinogen Puncture Site ABG pH ABG pCO2 at Pt Temp ABG pO2 at Pt Temp ABG HCO3 ABG O2 Sat (Measured) ABG O2 Content ABG Base Excess Atul Test O2 Delivery Device Oxygen Flow Rate Vent Mode Vent Rate PEEP Pressure Support Vent Sodium Potassium Chloride Carbon Dioxide Anion Gap BUN Creatinine Est GFR (CKD-EPI)AfAm Est GFR (CKD-EPI)NonAf POC Glucometer [phone] Random Glucose Lactic Acid Calcium Phosphorus Magnesium Iron TIBC Iron Saturation Unsaturated IBC Ferritin Total Bilirubin AST ALT Alkaline Phosphatase Creatine Kinase Troponin I Total Protein Albumin Prealbumin Triglycerides Cholesterol Total LDL Cholesterol HDL Cholesterol Beta-Hydroxybutyrate Urine Color Urine Appearance Urine pH Ur Specific Downing Urine Protein Urine Glucose (UA) Urine Ketones Urine Blood Urine Nitrite Urine Bilirubin Urine Urobilinogen Ur Leukocyte Esterase Urine WBC (Auto) Urine RBC (Auto) U Epithel Cells (Auto) Urine Bacteria (Auto) Stool Occult Blood Acetone, Qual B-Hydroxybutyrate 04/02/19 04/02/19 04/03/19 18:26 23:59 01:03 WBC RBC Hgb Hct MCV MCH MCHC RDW Plt Count MPV Absolute Neuts (auto) Total Counted Neutrophils % Neutrophils % (Manual) Band Neutrophils % Lymphocytes % Lymphocytes % (Manual) Monocytes % Monocytes % (Manual) Eosinophils % Eosinophils % (Manual) Basophils % Basophils % (Manual) Myelocytes % (Man) Promyelocytes % (Man) Blast Cells % (Manual) Nucleated RBC % Metamyelocytes Hypochromia Toxic Granulation Platelet Estimate Platelet Comment Polychromasia Poikilocytosis Anisocytosis Microcytosis Macrocytosis Spherocytes Target Cells Tear Drop Cells Ovalocytes [place] Cells Schistocytes PT with INR INR PTT (Actin FS) Fibrinogen Puncture Site ABG pH ABG pCO2 at Pt Temp ABG pO2 at Pt Temp ABG HCO3 ABG O2 Sat (Measured) ABG O2 Content ABG Base Excess Atul Test O2 Delivery Device Oxygen Flow Rate Vent Mode Vent Rate PEEP Pressure Support Vent Sodium Potassium Chloride Carbon Dioxide Anion Gap BUN Creatinine Est GFR (CKD-EPI)AfAm Est GFR (CKD-EPI)NonAf POC Glucometer [phone] Random Glucose Lactic Acid Calcium Phosphorus Magnesium Iron TIBC Iron Saturation Unsaturated IBC Ferritin Total Bilirubin AST ALT Alkaline Phosphatase Creatine Kinase Troponin I Total Protein Albumin Prealbumin Triglycerides Cholesterol Total LDL Cholesterol HDL Cholesterol Beta-Hydroxybutyrate Urine Color Urine Appearance Urine pH Ur Specific Downing Urine Protein Urine Glucose (UA) Urine Ketones Urine Blood Urine Nitrite Urine Bilirubin Urine Urobilinogen Ur Leukocyte Esterase Urine WBC (Auto) Urine RBC (Auto) U Epithel Cells (Auto) Urine Bacteria (Auto) Stool Occult Blood Acetone, Qual B-Hydroxybutyrate 04/03/19 04/03/19 04/03/19 02:52 05:00 05:00 WBC 9.5 RBC 2.87 L Hgb 8.2 L Hct 24.8 L MCV 86.3 MCH 28.7 MCHC 33.2 RDW 23.1 H Plt Count 550 H MPV 7.4 L Absolute Neuts (auto) 6.5 Total Counted Neutrophils % 67.9 Neutrophils % (Manual) Band Neutrophils % Lymphocytes % 22.9 D Lymphocytes % (Manual) Monocytes % 6.1 Monocytes % (Manual) Eosinophils % 2.3 D Eosinophils % (Manual) Basophils % 0.8 Basophils % (Manual) Myelocytes % (Man) Promyelocytes % (Man) Blast Cells % (Manual) Nucleated RBC % 0 Metamyelocytes Hypochromia 0 Toxic Granulation Platelet Estimate Increased Platelet Comment Polychromasia 0 Poikilocytosis 0 Anisocytosis 1+ Microcytosis 1+ Macrocytosis 1+ Spherocytes Target Cells 1+ Tear Drop Cells Ovalocytes 1+ Jose Antonio Cells Schistocytes PT with INR INR PTT (Actin FS) Fibrinogen Puncture Site ABG pH ABG pCO2 at Pt Temp ABG pO2 at Pt Temp ABG HCO3 ABG O2 Sat (Measured) ABG O2 Content ABG Base Excess Atul Test O2 Delivery Device Oxygen Flow Rate Vent Mode Vent Rate PEEP Pressure Support Vent Sodium 151 H Potassium 3.5 Chloride 116 H Carbon Dioxide 27 Anion Gap 7 L BUN 21.4 H Creatinine 0.6 Est GFR (CKD-EPI)AfAm 124.05 Est GFR (CKD-EPI)NonAf 107.03 POC Glucometer 112 Random Glucose 230 H Lactic Acid Calcium 7.8 L Phosphorus 1.9 L Magnesium 1.9 Iron TIBC Iron Saturation Unsaturated IBC Ferritin Total Bilirubin 0.3 AST 18 ALT 12 L Alkaline Phosphatase 138 H Creatine Kinase Troponin I Total Protein 5.3 L Albumin 1.8 L Prealbumin Triglycerides Cholesterol Total LDL Cholesterol HDL Cholesterol Beta-Hydroxybutyrate Urine Color Urine Appearance Urine pH Ur Specific Downing Urine Protein Urine Glucose (UA) Urine Ketones Urine Blood Urine Nitrite Urine Bilirubin Urine Urobilinogen Ur Leukocyte Esterase Urine WBC (Auto) Urine RBC (Auto) U Epithel Cells (Auto) Urine Bacteria (Auto) Stool Occult Blood Acetone, Qual B-Hydroxybutyrate 04/03/19 04/03/19 04/03/19 05:00 05:27 10:53 WBC RBC Hgb Hct MCV MCH MCHC RDW Plt Count MPV Absolute Neuts (auto) Total Counted Neutrophils % Neutrophils % (Manual) Band Neutrophils % Lymphocytes % Lymphocytes % (Manual) Monocytes % Monocytes % (Manual) Eosinophils % Eosinophils % (Manual) Basophils % Basophils % (Manual) Myelocytes % (Man) Promyelocytes % (Man) Blast Cells % (Manual) Nucleated RBC % Metamyelocytes Hypochromia Toxic Granulation Platelet Estimate Platelet Comment Polychromasia Poikilocytosis Anisocytosis Microcytosis Macrocytosis Spherocytes Target Cells Tear Drop Cells Ovalocytes Thornton Cells Schistocytes PT with INR INR PTT (Actin FS) Fibrinogen Puncture Site ABG pH ABG pCO2 at Pt Temp ABG pO2 at Pt Temp ABG HCO3 ABG O2 Sat (Measured) ABG O2 Content ABG Base Excess Atul Test O2 Delivery Device Oxygen Flow Rate Vent Mode Vent Rate PEEP Pressure Support Vent Sodium Potassium Chloride Carbon Dioxide Anion Gap BUN Creatinine Est GFR (CKD-EPI)AfAm Est GFR (CKD-EPI)NonAf POC Glucometer [phone] Random Glucose Lactic Acid Calcium Phosphorus Magnesium Iron TIBC Iron Saturation Unsaturated IBC Ferritin Total Bilirubin AST ALT Alkaline Phosphatase Creatine Kinase Troponin I Total Protein Albumin Prealbumin Triglycerides Cholesterol Total LDL Cholesterol HDL Cholesterol Beta-Hydroxybutyrate Urine Color Yellow Urine Appearance Clear Urine pH 6.0 Ur Specific Downing 1.025 Urine Protein 2+ H Urine Glucose (UA) Negative Urine Ketones 1+ H Urine Blood Negative Urine Nitrite Negative Urine Bilirubin 1+ H Urine Urobilinogen 0.2 Ur Leukocyte Esterase Negative Urine WBC (Auto) 0-3 Urine RBC (Auto) 0-3 U Epithel Cells (Auto) 2-5 Urine Bacteria (Auto) Few Stool Occult Blood Acetone, Qual B-Hydroxybutyrate 04/03/19 04/03/19 04/03/19 14:01 17:22 22:23 WBC RBC Hgb Hct MCV MCH MCHC RDW Plt Count MPV Absolute Neuts (auto) Total Counted Neutrophils % Neutrophils % (Manual) Band Neutrophils % Lymphocytes % Lymphocytes % (Manual) Monocytes % Monocytes % (Manual) Eosinophils % Eosinophils % (Manual) Basophils % Basophils % (Manual) Myelocytes % (Man) Promyelocytes % (Man) Blast Cells % (Manual) Nucleated RBC % Metamyelocytes Hypochromia Toxic Granulation Platelet Estimate Platelet Comment Polychromasia Poikilocytosis Anisocytosis Microcytosis Macrocytosis Spherocytes Target Cells Tear Drop Cells Ovalocytes [place] Cells Schistocytes PT with INR INR PTT (Actin FS) Fibrinogen Puncture Site ABG pH ABG pCO2 at Pt Temp ABG pO2 at Pt Temp ABG HCO3 ABG O2 Sat (Measured) ABG O2 Content ABG Base Excess Atul Test O2 Delivery Device Oxygen Flow Rate Vent Mode Vent Rate PEEP Pressure Support Vent Sodium Potassium Chloride Carbon Dioxide Anion Gap BUN Creatinine Est GFR (CKD-EPI)AfAm Est GFR (CKD-EPI)NonAf POC Glucometer [phone] Random Glucose Lactic Acid Calcium Phosphorus Magnesium Iron TIBC Iron Saturation Unsaturated IBC Ferritin Total Bilirubin AST ALT Alkaline Phosphatase Creatine Kinase Troponin I Total Protein Albumin Prealbumin Triglycerides Cholesterol Total LDL Cholesterol HDL Cholesterol Beta-Hydroxybutyrate Urine Color Urine Appearance Urine pH Ur Specific Downing Urine Protein Urine Glucose (UA) Urine Ketones Urine Blood Urine Nitrite Urine Bilirubin Urine Urobilinogen Ur Leukocyte Esterase Urine WBC (Auto) Urine RBC (Auto) U Epithel Cells (Auto) Urine Bacteria (Auto) Stool Occult Blood Acetone, Qual B-Hydroxybutyrate 04/04/19 04/04/19 04/04/19 03:12 05:15 05:15 WBC 10.0 RBC 2.66 L Hgb 7.8 L Hct 22.9 L MCV 86.1 MCH 29.2 MCHC 34.0 RDW 23.1 H Plt Count 475 H MPV 7.5 Absolute Neuts (auto) 7.3 Total Counted Neutrophils % 73.2 Neutrophils % (Manual) Band Neutrophils % Lymphocytes % 18.0 D Lymphocytes % (Manual) Monocytes % 4.7 Monocytes % (Manual) Eosinophils % 3.3 Eosinophils % (Manual) Basophils % 0.8 Basophils % (Manual) Myelocytes % (Man) Promyelocytes % (Man) Blast Cells % (Manual) Nucleated RBC % 0 Metamyelocytes Hypochromia Toxic Granulation Platelet Estimate Platelet Comment Polychromasia Poikilocytosis Anisocytosis Microcytosis Macrocytosis Spherocytes Target Cells Tear Drop Cells Ovalocytes Jose Antonio Cells Schistocytes PT with INR INR PTT (Actin FS) Fibrinogen Puncture Site ABG pH ABG pCO2 at Pt Temp ABG pO2 at Pt Temp ABG HCO3 ABG O2 Sat (Measured) ABG O2 Content ABG Base Excess Atul Test O2 Delivery Device Oxygen Flow Rate Vent Mode Vent Rate PEEP Pressure Support Vent Sodium 149 H Potassium 3.1 L Chloride 112 H Carbon Dioxide 29 Anion Gap 8 BUN 18.4 H Creatinine 0.5 L Est GFR (CKD-EPI)AfAm 131.72 Est GFR (CKD-EPI)NonAf 113.65 POC Glucometer 202 Random Glucose 185 H Lactic Acid Calcium 7.5 L Phosphorus Magnesium 1.8 Iron TIBC Iron Saturation Unsaturated IBC Ferritin Total Bilirubin 0.2 AST 14 L ALT 11 L Alkaline Phosphatase 126 H Creatine Kinase Troponin I Total Protein 4.8 L Albumin 1.5 L Prealbumin Triglycerides Cholesterol Total LDL Cholesterol HDL Cholesterol Beta-Hydroxybutyrate Urine Color Urine Appearance Urine pH Ur Specific Downing Urine Protein Urine Glucose (UA) Urine Ketones Urine Blood Urine Nitrite Urine Bilirubin Urine Urobilinogen Ur Leukocyte Esterase Urine WBC (Auto) Urine RBC (Auto) U Epithel Cells (Auto) Urine Bacteria (Auto) Stool Occult Blood Acetone, Qual B-Hydroxybutyrate 04/04/19 04/04/19 04/04/19 07:57 11:16 15:05 WBC RBC Hgb Hct MCV MCH MCHC RDW Plt Count MPV Absolute Neuts (auto) Total Counted Neutrophils % Neutrophils % (Manual) Band Neutrophils % Lymphocytes % Lymphocytes % (Manual) Monocytes % Monocytes % (Manual) Eosinophils % Eosinophils % (Manual) Basophils % Basophils % (Manual) Myelocytes % (Man) Promyelocytes % (Man) Blast Cells % (Manual) Nucleated RBC % Metamyelocytes Hypochromia Toxic Granulation Platelet Estimate Platelet Comment Polychromasia Poikilocytosis Anisocytosis Microcytosis Macrocytosis Spherocytes Target Cells Tear Drop Cells Ovalocytes Jose Antonio Cells Schistocytes PT with INR INR PTT (Actin FS) Fibrinogen Puncture Site ABG pH ABG pCO2 at Pt Temp ABG pO2 at Pt Temp ABG HCO3 ABG O2 Sat (Measured) ABG O2 Content ABG Base Excess Atul Test O2 Delivery Device Oxygen Flow Rate Vent Mode Vent Rate PEEP Pressure Support Vent Sodium Potassium Chloride Carbon Dioxide Anion Gap BUN Creatinine Est GFR (CKD-EPI)AfAm Est GFR (CKD-EPI)NonAf POC Glucometer [phone] Random Glucose Lactic Acid Calcium Phosphorus Magnesium Iron TIBC Iron Saturation Unsaturated IBC Ferritin Total Bilirubin AST ALT Alkaline Phosphatase Creatine Kinase Troponin I Total Protein Albumin Prealbumin Triglycerides Cholesterol Total LDL Cholesterol HDL Cholesterol Beta-Hydroxybutyrate Urine Color Urine Appearance Urine pH Ur Specific Downing Urine Protein Urine Glucose (UA) Urine Ketones Urine Blood Urine Nitrite Urine Bilirubin Urine Urobilinogen Ur Leukocyte Esterase Urine WBC (Auto) Urine RBC (Auto) U Epithel Cells (Auto) Urine Bacteria (Auto) Stool Occult Blood Acetone, Qual B-Hydroxybutyrate 04/04/19 04/04/19 04/05/19 17:59 23:14 02:30 WBC RBC Hgb Hct MCV MCH MCHC RDW Plt Count MPV Absolute Neuts (auto) Total Counted Neutrophils % Neutrophils % (Manual) Band Neutrophils % Lymphocytes % Lymphocytes % (Manual) Monocytes % Monocytes % (Manual) Eosinophils % Eosinophils % (Manual) Basophils % Basophils % (Manual) Myelocytes % (Man) Promyelocytes % (Man) Blast Cells % (Manual) Nucleated RBC % Metamyelocytes Hypochromia Toxic Granulation Platelet Estimate Platelet Comment Polychromasia Poikilocytosis Anisocytosis Microcytosis Macrocytosis Spherocytes Target Cells Tear Drop Cells Ovalocytes Thornton Cells Schistocytes PT with INR INR PTT (Actin FS) Fibrinogen Puncture Site ABG pH ABG pCO2 at Pt Temp ABG pO2 at Pt Temp ABG HCO3 ABG O2 Sat (Measured) ABG O2 Content ABG Base Excess Atul Test O2 Delivery Device Oxygen Flow Rate Vent Mode Vent Rate PEEP Pressure Support Vent Sodium Potassium Chloride Carbon Dioxide Anion Gap BUN Creatinine Est GFR (CKD-EPI)AfAm Est GFR (CKD-EPI)NonAf POC Glucometer [phone] Random Glucose Lactic Acid Calcium Phosphorus Magnesium Iron TIBC Iron Saturation Unsaturated IBC Ferritin Total Bilirubin AST ALT Alkaline Phosphatase Creatine Kinase Troponin I Total Protein Albumin Prealbumin Triglycerides Cholesterol Total LDL Cholesterol HDL Cholesterol Beta-Hydroxybutyrate Urine Color Urine Appearance Urine pH Ur Specific Downing Urine Protein Urine Glucose (UA) Urine Ketones Urine Blood Urine Nitrite Urine Bilirubin Urine Urobilinogen Ur Leukocyte Esterase Urine WBC (Auto) Urine RBC (Auto) U Epithel Cells (Auto) Urine Bacteria (Auto) Stool Occult Blood Acetone, Qual B-Hydroxybutyrate 04/05/19 04/05/19 04/05/19 05:50 10:05 11:06 WBC RBC Hgb Hct MCV MCH MCHC RDW Plt Count MPV Absolute Neuts (auto) Total Counted Neutrophils % Neutrophils % (Manual) Band Neutrophils % Lymphocytes % Lymphocytes % (Manual) Monocytes % Monocytes % (Manual) Eosinophils % Eosinophils % (Manual) Basophils % Basophils % (Manual) Myelocytes % (Man) Promyelocytes % (Man) Blast Cells % (Manual) Nucleated RBC % Metamyelocytes Hypochromia Toxic Granulation Platelet Estimate Platelet Comment Polychromasia Poikilocytosis Anisocytosis Microcytosis Macrocytosis Spherocytes Target Cells Tear Drop Cells Ovalocytes Jose Antonio Cells Schistocytes PT with INR INR PTT (Actin FS) Fibrinogen Puncture Site ABG pH ABG pCO2 at Pt Temp ABG pO2 at Pt Temp ABG HCO3 ABG O2 Sat (Measured) ABG O2 Content ABG Base Excess Atul Test O2 Delivery Device Oxygen Flow Rate Vent Mode Vent Rate PEEP Pressure Support Vent Sodium Potassium Chloride Carbon Dioxide Anion Gap BUN Creatinine Est GFR (CKD-EPI)AfAm Est GFR (CKD-EPI)NonAf POC Glucometer [phone] Random Glucose Lactic Acid Calcium Phosphorus Magnesium Iron TIBC Iron Saturation Unsaturated IBC Ferritin Total Bilirubin AST ALT Alkaline Phosphatase Creatine Kinase Troponin I Total Protein Albumin Prealbumin Triglycerides Cholesterol Total LDL Cholesterol HDL Cholesterol Beta-Hydroxybutyrate Urine Color Urine Appearance Urine pH Ur Specific Downing Urine Protein Urine Glucose (UA) Urine Ketones Urine Blood Urine Nitrite Urine Bilirubin Urine Urobilinogen Ur Leukocyte Esterase Urine WBC (Auto) Urine RBC (Auto) U Epithel Cells (Auto) Urine Bacteria (Auto) Stool Occult Blood Acetone, Qual B-Hydroxybutyrate 04/05/19 04/05/19 04/05/19 12:29 13:35 14:44 WBC RBC Hgb Hct MCV MCH MCHC RDW Plt Count MPV Absolute Neuts (auto) Total Counted Neutrophils % Neutrophils % (Manual) Band Neutrophils % Lymphocytes % Lymphocytes % (Manual) Monocytes % Monocytes % (Manual) Eosinophils % Eosinophils % (Manual) Basophils % Basophils % (Manual) Myelocytes % (Man) Promyelocytes % (Man) Blast Cells % (Manual) Nucleated RBC % Metamyelocytes Hypochromia Toxic Granulation Platelet Estimate Platelet Comment Polychromasia Poikilocytosis Anisocytosis Microcytosis Macrocytosis Spherocytes Target Cells Tear Drop Cells Ovalocytes Thornton Cells Schistocytes PT with INR INR PTT (Actin FS) Fibrinogen Puncture Site ABG pH ABG pCO2 at Pt Temp ABG pO2 at Pt Temp ABG HCO3 ABG O2 Sat (Measured) ABG O2 Content ABG Base Excess Atul Test O2 Delivery Device Oxygen Flow Rate Vent Mode Vent Rate PEEP Pressure Support Vent Sodium Potassium Chloride Carbon Dioxide Anion Gap BUN Creatinine Est GFR (CKD-EPI)AfAm Est GFR (CKD-EPI)NonAf POC Glucometer [phone] Random Glucose Lactic Acid Calcium Phosphorus Magnesium Iron TIBC Iron Saturation Unsaturated IBC Ferritin Total Bilirubin AST ALT Alkaline Phosphatase Creatine Kinase Troponin I Total Protein Albumin Prealbumin Triglycerides Cholesterol Total LDL Cholesterol HDL Cholesterol Beta-Hydroxybutyrate Urine Color Urine Appearance Urine pH Ur Specific Downing Urine Protein Urine Glucose (UA) Urine Ketones Urine Blood Urine Nitrite Urine Bilirubin Urine Urobilinogen Ur Leukocyte Esterase Urine WBC (Auto) Urine RBC (Auto) U Epithel Cells (Auto) Urine Bacteria (Auto) Stool Occult Blood Acetone, Qual B-Hydroxybutyrate 04/05/19 04/05/19 04/05/19 15:52 17:06 21:18 WBC RBC Hgb Hct MCV MCH MCHC RDW Plt Count MPV Absolute Neuts (auto) Total Counted Neutrophils % Neutrophils % (Manual) Band Neutrophils % Lymphocytes % Lymphocytes % (Manual) Monocytes % Monocytes % (Manual) Eosinophils % Eosinophils % (Manual) Basophils % Basophils % (Manual) Myelocytes % (Man) Promyelocytes % (Man) Blast Cells % (Manual) Nucleated RBC % Metamyelocytes Hypochromia Toxic Granulation Platelet Estimate Platelet Comment Polychromasia Poikilocytosis Anisocytosis Microcytosis Macrocytosis Spherocytes Target Cells Tear Drop Cells Ovalocytes Thornton Cells Schistocytes PT with INR INR PTT (Actin FS) Fibrinogen Puncture Site ABG pH ABG pCO2 at Pt Temp ABG pO2 at Pt Temp ABG HCO3 ABG O2 Sat (Measured) ABG O2 Content ABG Base Excess Atul Test O2 Delivery Device Oxygen Flow Rate Vent Mode Vent Rate PEEP Pressure Support Vent Sodium Potassium Chloride Carbon Dioxide Anion Gap BUN Creatinine Est GFR (CKD-EPI)AfAm Est GFR (CKD-EPI)NonAf POC Glucometer [phone] Random Glucose Lactic Acid Calcium Phosphorus Magnesium Iron TIBC Iron Saturation Unsaturated IBC Ferritin Total Bilirubin AST ALT Alkaline Phosphatase Creatine Kinase Troponin I Total Protein Albumin Prealbumin Triglycerides Cholesterol Total LDL Cholesterol HDL Cholesterol Beta-Hydroxybutyrate Urine Color Urine Appearance Urine pH Ur Specific Downing Urine Protein Urine Glucose (UA) Urine Ketones Urine Blood Urine Nitrite Urine Bilirubin Urine Urobilinogen Ur Leukocyte Esterase Urine WBC (Auto) Urine RBC (Auto) U Epithel Cells (Auto) Urine Bacteria (Auto) Stool Occult Blood Acetone, Qual B-Hydroxybutyrate 04/09/19 04/09/19 04/09/19 05:48 17:18 21:30 WBC RBC Hgb Hct MCV MCH MCHC RDW Plt Count MPV Absolute Neuts (auto) Total Counted Neutrophils % Neutrophils % (Manual) Band Neutrophils % Lymphocytes % Lymphocytes % (Manual) Monocytes % Monocytes % (Manual) Eosinophils % Eosinophils % (Manual) Basophils % Basophils % (Manual) Myelocytes % (Man) Promyelocytes % (Man) Blast Cells % (Manual) Nucleated RBC % Metamyelocytes Hypochromia Toxic Granulation Platelet Estimate Platelet Comment Polychromasia Poikilocytosis Anisocytosis Microcytosis Macrocytosis Spherocytes Target Cells Tear Drop Cells Ovalocytes Jose Antonio Cells Schistocytes PT with INR INR PTT (Actin FS) Fibrinogen Puncture Site ABG pH ABG pCO2 at Pt Temp ABG pO2 at Pt Temp ABG HCO3 ABG O2 Sat (Measured) ABG O2 Content ABG Base Excess Atul Test O2 Delivery Device Oxygen Flow Rate Vent Mode Vent Rate PEEP Pressure Support Vent Sodium 139 Potassium 3.6 Chloride 104 Carbon Dioxide 28 Anion Gap 6 L BUN 7.1 Creatinine 0.3 L Est GFR (CKD-EPI)AfAm 155.82 Est GFR (CKD-EPI)NonAf 134.44 POC Glucometer 260 71 Random Glucose 348 H Lactic Acid Calcium 7.4 L Phosphorus Magnesium 1.7 L Iron TIBC Iron Saturation Unsaturated IBC Ferritin Total Bilirubin 0.3 AST 20 ALT 14 Alkaline Phosphatase 173 H Creatine Kinase Troponin I Total Protein 5.5 L Albumin 1.7 L Prealbumin Triglycerides 151 H Cholesterol 149 Total LDL Cholesterol 72 HDL Cholesterol 55 Beta-Hydroxybutyrate Urine Color Urine Appearance Urine pH Ur Specific Downing Urine Protein Urine Glucose (UA) Urine Ketones Urine Blood Urine Nitrite Urine Bilirubin Urine Urobilinogen Ur Leukocyte Esterase Urine WBC (Auto) Urine RBC (Auto) U Epithel Cells (Auto) Urine Bacteria (Auto) Stool Occult Blood Acetone, Qual B-Hydroxybutyrate 04/10/19 04/10/19 04/10/19 06:00 06:00 07:35 WBC 9.3 RBC 2.84 L Hgb 8.0 L Hct 24.8 L MCV 87.1 MCH 28.1 MCHC 32.3 RDW 23.6 H Plt Count 514 H MPV 8.3 Absolute Neuts (auto) 6.1 Total Counted Neutrophils % 66.0 Neutrophils % (Manual) Band Neutrophils % Lymphocytes % 21.3 Lymphocytes % (Manual) Monocytes % 11.5 H Monocytes % (Manual) Eosinophils % 0.8 D Eosinophils % (Manual) Basophils % 0.4 Basophils % (Manual) Myelocytes % (Man) Promyelocytes % (Man) Blast Cells % (Manual) Nucleated RBC % 0 Metamyelocytes Hypochromia Toxic Granulation Platelet Estimate Platelet Comment Polychromasia Poikilocytosis Anisocytosis Microcytosis Macrocytosis Spherocytes Target Cells Tear Drop Cells Ovalocytes Thornton Cells Schistocytes PT with INR INR PTT (Actin FS) Fibrinogen Puncture Site ABG pH ABG pCO2 at Pt Temp ABG pO2 at Pt Temp ABG HCO3 ABG O2 Sat (Measured) ABG O2 Content ABG Base Excess Atul Test O2 Delivery Device Oxygen Flow Rate Vent Mode Vent Rate PEEP Pressure Support Vent Sodium 138 Potassium 3.1 L Chloride 102 Carbon Dioxide 29 Anion Gap 7 L BUN 6.8 L Creatinine 0.3 L Est GFR (CKD-EPI)AfAm 155.82 Est GFR (CKD-EPI)NonAf 134.44 POC Glucometer 276 Random Glucose 225 H Lactic Acid Calcium 7.7 L Phosphorus Magnesium 1.7 L Iron TIBC Iron Saturation Unsaturated IBC Ferritin Total Bilirubin 0.3 AST 19 ALT 14 Alkaline Phosphatase 175 H Creatine Kinase Troponin I Total Protein 5.5 L Albumin 1.8 L Prealbumin Triglycerides Cholesterol Total LDL Cholesterol HDL Cholesterol Beta-Hydroxybutyrate Urine Color Urine Appearance Urine pH Ur Specific Downing Urine Protein Urine Glucose (UA) Urine Ketones Urine Blood Urine Nitrite Urine Bilirubin Urine Urobilinogen Ur Leukocyte Esterase Urine WBC (Auto) Urine RBC (Auto) U Epithel Cells (Auto) Urine Bacteria (Auto) Stool Occult Blood Acetone, Qual B-Hydroxybutyrate Active Medications Generic Name Dose Route Start Last Admin Trade Name Freq PRN Reason Stop Dose Admin Acetaminophen 1,000 mg 04/09/19 03:23 04/09/19 13:07 Ofirmev Injection - IVPB 1,000 mg Q6H PRN Administration FEVER Albuterol/Ipratropium 1 amp 04/08/19 18:07 Duoneb - NEB Q6H PRN SHORTNESS OF BREATH Amino Acids 30 ml 04/09/19 10:00 04/10/19 09:54 Prosource No Carb Liquid Pkt PO 30 ml DAILY [facility] Administration Aspirin 81 mg 04/09/19 14:00 04/10/19 09:46 Ecotrin - PO 81 mg DAILY [facility] Administration Atorvastatin Calcium 40 mg 04/09/19 22:00 04/09/19 21:04 Lipitor - PO 40 mg HS [facility] Administration Chlorhexidine Gluconate 1 applic 04/08/19 22:00 04/09/19 21:04 Hibiclens For Decolonization - TP 1 applic HS [facility] Administration Chlorhexidine Gluconate 15 ml 04/08/19 22:00 04/10/19 09:54 Peridex - MM 15 ml BID [facility] Administration Dextrose 4 gm 04/08/19 18:07 Glucose Tablet - PO PRN PRN HYPOGLYCEMIA Enoxaparin Sodium 70 mg 04/08/19 22:00 04/10/19 09:46 Lovenox - SQ 70 mg BID [facility] Administration Dextrose/Lactated Ringer's 1,000 mls @ 75 mls/hr 04/08/19 18:07 04/09/19 21: 03 D5-Lr - IV 75 mls/hr ASDIR [facility] Administration Meropenem 1 gm/ Dextrose 100 mls @ 200 mls/hr 04/09/19 02:00 04/10/19 09:47 IVPB 200 mls/hr Q8H-IV [facility] Administration Insulin Aspart 1 vial 04/09/19 18:00 04/10/19 07:35 Novolog Vial Sliding Scale - SQ 4 units Q6HPO [facility] Administration Protocol Morphine Sulfate 2 mg 04/09/19 03:23 Morphine Sulfate IVPUSH Q4H PRN PAIN LEVEL 7 - 10 Mupirocin 1 applic 04/08/19 22:00 04/10/19 09:46 Bactroban Ointment (For Decolonization) - NS 04/13/19 21:59 1 applic BID [facility] Administration Nystatin 1 applic 04/08/19 22:00 04/09/19 21:14 Mycostatin Ointment - TP 1 applic BID [facility] Administration Ondansetron HCl 4 mg 04/08/19 18:07 Zofran Injection IVPUSH Q6H PRN NAUSEA AND/OR VOMITING Pantoprazole Sodium 40 mg 04/08/19 22:00 04/10/19 09:54 Protonix Iv IVPUSH 40 mg BID [facility] Administration Vancomycin HCl 125 mg 04/09/19 00:00 04/10/19 07:32 Vancomycin Oral Solution PO 125 mg Q6HPO [facility] Administration CBC, BMP 04/10/19 06:00 04/10/19 06:00 ASSESSMENT/PLAN: Pt is a 48F PMH Type I IDDM, PE (on Lovenox), frequent admissions for DKA, HTN, HLD, C-Diff, CVA with left-sided weakness, recent hospitalization at [facility] September 2018, sepsis 2/2 bowel perforation s/p laparotomy who was recently in [facility] ICU. Pt well known to ICU team. #Neuro -neuro consult -subacute CVA seen on head CT -antiplatelets -neuro recommendation appreciated. #Cardio: hx of transient a-fib with RVR -security monitor - QTc 528. -Maintain MAP > 65. currently not on pressors #Respiratory: Acute respiratory failure -s/p trach and bronchoscopy -Duonebs -vented on AC mode #GI: s/p ex lap for SBO w/ perforation -Currently with wound vac -Surgery on board, will need PEG -on vanco po ofr c diff #Endocrine: DKA - off insulin drip, novolog q4h on D5LR # 75 . #I.D.- Possible Sepsis 2/2 Abdominal/Respiratory Source -Pt s/p bowel perforation s/p laparotomy -Rapid Response called on [address] as pt visibly diaphoretic, tachypneic, and tachycardic -daily lab -Pt currently on Vancomycin and Merrem -ID on board -Pt w/ C-diff. Continue with PO Vanco per ID #F/E/N -D5/LR @ 75cc/hr -Monitor electrolytes -NPO -attempt peripheral access #DVTppx: -Lovenox Dispo: stable for transfer to LTAC Visit type - Emergency Visit Emergency Visit: Yes ED Registration Date: 03/09/19 Care time: The patient presented to the Emergency Department on the above date and was hospitalized for further evaluation of their emergent condition. - New Patient This patient is new to me today: No - Critical Care Critical Care patient: Yes Total Critical Care Time (in minutes): 45 Critical Care Statement: The care of this patient involved high complexity decision making to prevent further life threatening deterioration of the patient 's condition and/or to evaluate & treat vital organ system(s) failure or risk of failure. ATTENDING PHYSICIAN STATEMENT I saw and evaluated the patient. I reviewed the resident's note and discussed the case with the resident. I agree with the resident's findings and plan as documented. SUBJECTIVE: OBJECTIVE: ASSESSMENT AND PLAN:
[2019-04-10] MEDS ORDERED: MAGNESIUM SULF 50% (8.12 MEQ/2 ML-1 GM VIAL) IVPB ONE (11:55)
--- NOTE | 2019-04-10 12:21 | PN ---
Physical Exam: SUBJECTIVE: Patient seen and examined OBJECTIVE: Vital Signs Period Temp Pulse Resp BP Sys/Rapp Pulse Ox Last 24 Hr 97.8 F-101.3 F 83-108 22-30 126-143/71-86 100-100 GENERAL: The patient is awake, alert, and fully oriented, in no acute distress. HEAD: Normal with no signs of trauma. EYES: PERRL, extraocular movements intact, sclera anicteric, conjunctiva clear. No ptosis. ENT: Ears normal, nares patent, oropharynx clear without exudates, moist mucous membranes. NECK: Trachea midline, full range of motion, supple. LUNGS: Breath sounds equal, clear to auscultation bilaterally, no wheezes, no crackles, no accessory muscle use. HEART: Regular rate and rhythm, S1, S2 without murmur, rub or gallop. ABDOMEN: Soft, nontender, nondistended, normoactive bowel sounds, no guarding, no rebound, no hepatosplenomegaly, no masses. EXTREMITIES: 2+ pulses, warm, well-perfused, no edema. NEUROLOGICAL: Cranial nerves II through XII grossly intact. Normal speech, gait not observed. PSYCH: Normal mood, normal affect. SKIN: Warm, dry, normal turgor, no rashes or lesions noted Laboratory Results - last 24 hr 03/17/19 03/17/19 03/17/19 05:20 05:20 05:20 WBC 16.2 H RBC 3.60 Hgb 8.7 L Hct 27.2 L MCV 75.4 L MCH 24.0 L MCHC 31.9 L RDW 24.5 H Plt Count 150 D MPV 9.4 Absolute Neuts (auto) 14.6 H Total Counted Neutrophils % 89.6 H Neutrophils % (Manual) 94.0 H Band Neutrophils % 3.0 Lymphocytes % 8.4 D Lymphocytes % (Manual) 2.0 L D Monocytes % 1.6 L Monocytes % (Manual) 0 L D Eosinophils % 0.3 D Eosinophils % (Manual) 0.0 D Basophils % 0.1 Basophils % (Manual) 0.0 Myelocytes % (Man) 0 D Promyelocytes % (Man) 0 Blast Cells % (Manual) 0 Nucleated RBC % 1 H Metamyelocytes 0 Hypochromia 1+ Toxic Granulation Platelet Estimate Decreased Platelet Comment Polychromasia 0 Poikilocytosis 1+ Anisocytosis 1+ Microcytosis 1+ Macrocytosis 0 Spherocytes Target Cells 1+ Tear Drop Cells Ovalocytes 1+ [place] Cells Schistocytes PT with INR INR PTT (Actin FS) 24.9 L Fibrinogen Puncture Site ABG pH ABG pCO2 at Pt Temp ABG pO2 at Pt Temp ABG HCO3 ABG O2 Sat (Measured) ABG O2 Content ABG Base Excess Atul Test O2 Delivery Device Oxygen Flow Rate Vent Mode Vent Rate PEEP Pressure Support Vent Sodium 141 Potassium 3.8 Chloride 109 H Carbon Dioxide 22 Anion Gap 10 BUN 13.0 Creatinine 0.4 L Est GFR (CKD-EPI)AfAm 141.75 Est GFR (CKD-EPI)NonAf 122.30 POC Glucometer Random Glucose 244 H Lactic Acid Calcium 6.4 L* Phosphorus 1.0 L* Magnesium 1.8 Iron TIBC Iron Saturation Unsaturated IBC Ferritin Total Bilirubin 0.3 AST 24 ALT 10 L Alkaline Phosphatase 145 H Creatine Kinase Troponin I Total Protein 4.0 L Albumin 1.2 L Prealbumin Triglycerides Cholesterol Total LDL Cholesterol HDL Cholesterol Beta-Hydroxybutyrate Urine Color Urine Appearance Urine pH Ur Specific Carter Urine Protein Urine Glucose (UA) Urine Ketones Urine Blood Urine Nitrite Urine Bilirubin Urine Urobilinogen Ur Leukocyte Esterase Urine WBC (Auto) Urine RBC (Auto) U Epithel Cells (Auto) Urine Bacteria (Auto) Stool Occult Blood Acetone, Qual B-Hydroxybutyrate 03/17/19 03/17/19 03/17/19 05:29 12:19 17:43 WBC RBC Hgb Hct MCV MCH MCHC RDW Plt Count MPV Absolute Neuts (auto) Total Counted Neutrophils % Neutrophils % (Manual) Band Neutrophils % Lymphocytes % Lymphocytes % (Manual) Monocytes % Monocytes % (Manual) Eosinophils % Eosinophils % (Manual) Basophils % Basophils % (Manual) Myelocytes % (Man) Promyelocytes % (Man) Blast Cells % (Manual) Nucleated RBC % Metamyelocytes Hypochromia Toxic Granulation Platelet Estimate Platelet Comment Polychromasia Poikilocytosis Anisocytosis Microcytosis Macrocytosis Spherocytes Target Cells Tear Drop Cells Ovalocytes [place] Cells Schistocytes PT with INR INR PTT (Actin FS) Fibrinogen Puncture Site ABG pH ABG pCO2 at Pt Temp ABG pO2 at Pt Temp ABG HCO3 ABG O2 Sat (Measured) ABG O2 Content ABG Base Excess Atul Test O2 Delivery Device Oxygen Flow Rate Vent Mode Vent Rate PEEP Pressure Support Vent Sodium Potassium Chloride Carbon Dioxide Anion Gap BUN Creatinine Est GFR (CKD-EPI)AfAm Est GFR (CKD-EPI)NonAf POC Glucometer 229 156 168 Random Glucose Lactic Acid Calcium Phosphorus Magnesium Iron TIBC Iron Saturation Unsaturated IBC Ferritin Total Bilirubin AST ALT Alkaline Phosphatase Creatine Kinase Troponin I Total Protein Albumin Prealbumin Triglycerides Cholesterol Total LDL Cholesterol HDL Cholesterol Beta-Hydroxybutyrate Urine Color Urine Appearance Urine pH Ur Specific Carter Urine Protein Urine Glucose (UA) Urine Ketones Urine Blood Urine Nitrite Urine Bilirubin Urine Urobilinogen Ur Leukocyte Esterase Urine WBC (Auto) Urine RBC (Auto) U Epithel Cells (Auto) Urine Bacteria (Auto) Stool Occult Blood Acetone, Qual B-Hydroxybutyrate 03/17/19 03/18/19 03/18/19 21:43 05:30 05:30 WBC 7.8 RBC 3.66 Hgb 9.0 L Hct 27.7 L MCV 75.6 L MCH 24.5 L MCHC 32.4 RDW 24.3 H Plt Count 114 L D MPV 9.5 Absolute Neuts (auto) 6.2 Total Counted Neutrophils % 79.9 Neutrophils % (Manual) 76.0 Band Neutrophils % 5.0 Lymphocytes % 16.8 D Lymphocytes % (Manual) 12.0 D Monocytes % 1.8 L Monocytes % (Manual) 0 L Eosinophils % 1.2 D Eosinophils % (Manual) 2.0 D Basophils % 0.3 Basophils % (Manual) 0.0 Myelocytes % (Man) 0 Promyelocytes % (Man) 0 Blast Cells % (Manual) 0 Nucleated RBC % 0 Metamyelocytes 1 D Hypochromia 1+ Toxic Granulation 2+ Platelet Estimate Decreased Platelet Comment Present Polychromasia 1+ Poikilocytosis 1+ Anisocytosis 2+ Microcytosis 1+ Macrocytosis 0 Spherocytes 1+ Target Cells 1+ Tear Drop Cells 1+ Ovalocytes [place] Cells 1+ Schistocytes PT with INR INR PTT (Actin FS) 27.1 Fibrinogen Puncture Site ABG pH ABG pCO2 at Pt Temp ABG pO2 at Pt Temp ABG HCO3 ABG O2 Sat (Measured) ABG O2 Content ABG Base Excess Atul Test O2 Delivery Device Oxygen Flow Rate Vent Mode Vent Rate PEEP Pressure Support Vent Sodium Potassium Chloride Carbon Dioxide Anion Gap BUN Creatinine Est GFR (CKD-EPI)AfAm Est GFR (CKD-EPI)NonAf POC Glucometer 89 Random Glucose Lactic Acid Calcium Phosphorus Magnesium Iron TIBC Iron Saturation Unsaturated IBC Ferritin Total Bilirubin AST ALT Alkaline Phosphatase Creatine Kinase Troponin I Total Protein Albumin Prealbumin Triglycerides Cholesterol Total LDL Cholesterol HDL Cholesterol Beta-Hydroxybutyrate Urine Color Urine Appearance Urine pH Ur Specific Carter Urine Protein Urine Glucose (UA) Urine Ketones Urine Blood Urine Nitrite Urine Bilirubin Urine Urobilinogen Ur Leukocyte Esterase Urine WBC (Auto) Urine RBC (Auto) U Epithel Cells (Auto) Urine Bacteria (Auto) Stool Occult Blood Acetone, Qual B-Hydroxybutyrate 03/18/19 03/18/19 03/18/19 05:30 05:42 10:53 WBC RBC Hgb Hct MCV MCH MCHC RDW Plt Count MPV Absolute Neuts (auto) Total Counted Neutrophils % Neutrophils % (Manual) Band Neutrophils % Lymphocytes % Lymphocytes % (Manual) Monocytes % Monocytes % (Manual) Eosinophils % Eosinophils % (Manual) Basophils % Basophils % (Manual) Myelocytes % (Man) Promyelocytes % (Man) Blast Cells % (Manual) Nucleated RBC % Metamyelocytes Hypochromia Toxic Granulation Platelet Estimate Platelet Comment Polychromasia Poikilocytosis Anisocytosis Microcytosis Macrocytosis Spherocytes Target Cells Tear Drop Cells Ovalocytes [place] Cells Schistocytes PT with INR INR PTT (Actin FS) Fibrinogen Puncture Site ABG pH ABG pCO2 at Pt Temp ABG pO2 at Pt Temp ABG HCO3 ABG O2 Sat (Measured) ABG O2 Content ABG Base Excess Atul Test O2 Delivery Device Oxygen Flow Rate Vent Mode Vent Rate PEEP Pressure Support Vent Sodium 143 Potassium 3.1 L Chloride 107 Carbon Dioxide 24 Anion Gap 11 BUN 9.0 Creatinine 0.4 L Est GFR (CKD-EPI)AfAm 141.75 Est GFR (CKD-EPI)NonAf 122.30 POC Glucometer 201 169 Random Glucose 218 H Lactic Acid Calcium 6.5 L* Phosphorus 1.6 L Magnesium 1.5 L Iron TIBC Iron Saturation Unsaturated IBC Ferritin Total Bilirubin 0.5 AST 28 ALT 8 L Alkaline Phosphatase 276 H Creatine Kinase Troponin I Total Protein 3.9 L Albumin 1.2 L Prealbumin Triglycerides Cholesterol Total LDL Cholesterol HDL Cholesterol Beta-Hydroxybutyrate Urine Color Urine Appearance Urine pH Ur Specific Carter Urine Protein Urine Glucose (UA) Urine Ketones Urine Blood Urine Nitrite Urine Bilirubin Urine Urobilinogen Ur Leukocyte Esterase Urine WBC (Auto) Urine RBC (Auto) U Epithel Cells (Auto) Urine Bacteria (Auto) Stool Occult Blood Acetone, Qual B-Hydroxybutyrate 03/18/19 03/18/19 03/18/19 17:00 17:14 23:04 WBC RBC Hgb Hct MCV MCH MCHC RDW Plt Count MPV Absolute Neuts (auto) Total Counted Neutrophils % Neutrophils % (Manual) Band Neutrophils % Lymphocytes % Lymphocytes % (Manual) Monocytes % Monocytes % (Manual) Eosinophils % Eosinophils % (Manual) Basophils % Basophils % (Manual) Myelocytes % (Man) Promyelocytes % (Man) Blast Cells % (Manual) Nucleated RBC % Metamyelocytes Hypochromia Toxic Granulation Platelet Estimate Platelet Comment Polychromasia Poikilocytosis Anisocytosis Microcytosis Macrocytosis Spherocytes Target Cells Tear Drop Cells Ovalocytes [place] Cells Schistocytes PT with INR INR PTT (Actin FS) Fibrinogen Puncture Site ABG pH ABG pCO2 at Pt Temp ABG pO2 at Pt Temp ABG HCO3 ABG O2 Sat (Measured) ABG O2 Content ABG Base Excess Atul Test O2 Delivery Device Oxygen Flow Rate Vent Mode Vent Rate PEEP Pressure Support Vent Sodium 145 Potassium 3.0 L Chloride 107 Carbon Dioxide 19 L Anion Gap 18 H BUN 6.8 L Creatinine 0.3 L Est GFR (CKD-EPI)AfAm 155.82 Est GFR (CKD-EPI)NonAf 134.44 POC Glucometer 299 185 Random Glucose 303 H Lactic Acid Calcium 6.7 L* Phosphorus 3.5 Magnesium 2.0 Iron TIBC Iron Saturation Unsaturated IBC Ferritin Total Bilirubin AST ALT Alkaline Phosphatase Creatine Kinase Troponin I Total Protein Albumin Prealbumin Triglycerides Cholesterol Total LDL Cholesterol HDL Cholesterol Beta-Hydroxybutyrate Urine Color Urine Appearance Urine pH Ur Specific Carter Urine Protein Urine Glucose (UA) Urine Ketones Urine Blood Urine Nitrite Urine Bilirubin Urine Urobilinogen Ur Leukocyte Esterase Urine WBC (Auto) Urine RBC (Auto) U Epithel Cells (Auto) Urine Bacteria (Auto) Stool Occult Blood Acetone, Qual B-Hydroxybutyrate 03/19/19 03/19/19 03/19/19 05:00 05:00 05:00 WBC 8.0 RBC 3.37 L Hgb 8.3 L Hct 25.8 L MCV 76.5 L MCH 24.7 L MCHC 32.3 RDW 24.0 H Plt Count 94 L MPV 10.2 Absolute Neuts (auto) 6.9 Total Counted Neutrophils % 87.4 H Neutrophils % (Manual) 81.6 Band Neutrophils % 0.0 Lymphocytes % 9.3 D Lymphocytes % (Manual) 10.2 Monocytes % 1.8 L Monocytes % (Manual) 2 L D Eosinophils % 0.8 Eosinophils % (Manual) 2.1 Basophils % 0.7 Basophils % (Manual) 0.0 Myelocytes % (Man) 0 Promyelocytes % (Man) 0 Blast Cells % (Manual) 0 Nucleated RBC % 0 Metamyelocytes 3 H D Hypochromia 0 Toxic Granulation Platelet Estimate Decreased Platelet Comment Polychromasia 1+ Poikilocytosis 2+ Anisocytosis 1+ Microcytosis 1+ Macrocytosis 0 Spherocytes Target Cells Tear Drop Cells Ovalocytes 1+ [place] Cells Schistocytes 1+ PT with INR INR PTT (Actin FS) 30.7 Fibrinogen Puncture Site ABG pH ABG pCO2 at Pt Temp ABG pO2 at Pt Temp ABG HCO3 ABG O2 Sat (Measured) ABG O2 Content ABG Base Excess Atul Test O2 Delivery Device Oxygen Flow Rate Vent Mode Vent Rate PEEP Pressure Support Vent Sodium 144 Potassium 2.7 L* Chloride 106 Carbon Dioxide 19 L Anion Gap 18 H BUN 6.8 L Creatinine 0.4 L Est GFR (CKD-EPI)AfAm 141.75 Est GFR (CKD-EPI)NonAf 122.30 POC Glucometer Random Glucose 335 H Lactic Acid Calcium 6.5 L* Phosphorus 1.7 L Magnesium 1.7 L Iron TIBC Iron Saturation Unsaturated IBC Ferritin Total Bilirubin 0.4 AST 34 ALT 10 L Alkaline Phosphatase 363 H Creatine Kinase Troponin I Total Protein 4.1 L Albumin 1.2 L Prealbumin Triglycerides Cholesterol Total LDL Cholesterol HDL Cholesterol Beta-Hydroxybutyrate Urine Color Urine Appearance Urine pH Ur Specific Carter Urine Protein Urine Glucose (UA) Urine Ketones Urine Blood Urine Nitrite Urine Bilirubin Urine Urobilinogen Ur Leukocyte Esterase Urine WBC (Auto) Urine RBC (Auto) U Epithel Cells (Auto) Urine Bacteria (Auto) Stool Occult Blood Acetone, Qual B-Hydroxybutyrate 03/19/19 03/19/19 03/19/19 05:00 05:26 06:20 WBC 8.9 RBC 3.78 Hgb 9.1 L Hct 30.8 L D MCV 81.4 MCH 24.1 L MCHC 29.6 L RDW 24.5 H Plt Count 87 L MPV 9.8 Absolute Neuts (auto) Total Counted Neutrophils % Neutrophils % (Manual) Band Neutrophils % Lymphocytes % Lymphocytes % (Manual) Monocytes % Monocytes % (Manual) Eosinophils % Eosinophils % (Manual) Basophils % Basophils % (Manual) Myelocytes % (Man) Promyelocytes % (Man) Blast Cells % (Manual) Nucleated RBC % Metamyelocytes Hypochromia Toxic Granulation Platelet Estimate Platelet Comment Polychromasia Poikilocytosis Anisocytosis Microcytosis Macrocytosis Spherocytes Target Cells Tear Drop Cells Ovalocytes [place] Cells Schistocytes PT with INR INR PTT (Actin FS) Fibrinogen Puncture Site ABG pH ABG pCO2 at Pt Temp ABG pO2 at Pt Temp ABG HCO3 ABG O2 Sat (Measured) ABG O2 Content ABG Base Excess Atul Test O2 Delivery Device Oxygen Flow Rate Vent Mode Vent Rate PEEP Pressure Support Vent Sodium Potassium Chloride Carbon Dioxide Anion Gap BUN Creatinine Est GFR (CKD-EPI)AfAm Est GFR (CKD-EPI)NonAf POC Glucometer 332 Random Glucose Lactic Acid Calcium Phosphorus Magnesium Iron TIBC Iron Saturation Unsaturated IBC Ferritin Total Bilirubin AST ALT Alkaline Phosphatase Creatine Kinase Troponin I Total Protein Albumin Prealbumin 7.0 L Triglycerides Cholesterol Total LDL Cholesterol HDL Cholesterol Beta-Hydroxybutyrate Urine Color Urine Appearance Urine pH Ur Specific Carter Urine Protein Urine Glucose (UA) Urine Ketones Urine Blood Urine Nitrite Urine Bilirubin Urine Urobilinogen Ur Leukocyte Esterase Urine WBC (Auto) Urine RBC (Auto) U Epithel Cells (Auto) Urine Bacteria (Auto) Stool Occult Blood Acetone, Qual B-Hydroxybutyrate 03/19/19 03/19/19 03/19/19 06:20 06:20 06:20 WBC RBC Hgb Hct MCV MCH MCHC RDW Plt Count MPV Absolute Neuts (auto) Total Counted Neutrophils % Neutrophils % (Manual) Band Neutrophils % Lymphocytes % Lymphocytes % (Manual) Monocytes % Monocytes % (Manual) Eosinophils % Eosinophils % (Manual) Basophils % Basophils % (Manual) Myelocytes % (Man) Promyelocytes % (Man) Blast Cells % (Manual) Nucleated RBC % Metamyelocytes Hypochromia Toxic Granulation Platelet Estimate Platelet Comment Polychromasia Poikilocytosis Anisocytosis Microcytosis Macrocytosis Spherocytes Target Cells Tear Drop Cells Ovalocytes [place] Cells Schistocytes PT with INR INR PTT (Actin FS) Fibrinogen Puncture Site ABG pH ABG pCO2 at Pt Temp ABG pO2 at Pt Temp ABG HCO3 ABG O2 Sat (Measured) ABG O2 Content ABG Base Excess Atul Test O2 Delivery Device Oxygen Flow Rate Vent Mode Vent Rate PEEP Pressure Support Vent Sodium 146 H Potassium 2.9 L* Chloride 106 Carbon Dioxide 16 L Anion Gap 24 H BUN 7.8 Creatinine 0.7 Est GFR (CKD-EPI)AfAm 117.91 Est GFR (CKD-EPI)NonAf 101.74 POC Glucometer Random Glucose 371 H Lactic Acid 8.1 H* Calcium 7.0 L Phosphorus Magnesium 2.3 Iron TIBC Iron Saturation Unsaturated IBC Ferritin Total Bilirubin AST ALT Alkaline Phosphatase Creatine Kinase 71 Troponin I 0.53 H Total Protein Albumin Prealbumin Triglycerides Cholesterol Total LDL Cholesterol HDL Cholesterol Beta-Hydroxybutyrate Urine Color Urine Appearance Urine pH Ur Specific Carter Urine Protein Urine Glucose (UA) Urine Ketones Urine Blood Urine Nitrite Urine Bilirubin Urine Urobilinogen Ur Leukocyte Esterase Urine WBC (Auto) Urine RBC (Auto) U Epithel Cells (Auto) Urine Bacteria (Auto) Stool Occult Blood Acetone, Qual B-Hydroxybutyrate 03/19/19 03/19/19 03/19/19 06:22 06:40 06:40 WBC RBC Hgb Hct MCV MCH MCHC RDW Plt Count MPV Absolute Neuts (auto) Total Counted Neutrophils % Neutrophils % (Manual) Band Neutrophils % Lymphocytes % Lymphocytes % (Manual) Monocytes % Monocytes % (Manual) Eosinophils % Eosinophils % (Manual) Basophils % Basophils % (Manual) Myelocytes % (Man) Promyelocytes % (Man) Blast Cells % (Manual) Nucleated RBC % Metamyelocytes Hypochromia Toxic Granulation Platelet Estimate Platelet Comment Polychromasia Poikilocytosis Anisocytosis Microcytosis Macrocytosis Spherocytes Target Cells Tear Drop Cells Ovalocytes [place] Cells Schistocytes PT with INR INR PTT (Actin FS) Fibrinogen Puncture Site Right radial Right radial ABG pH 7.12 L* 7.04 L* ABG pCO2 at Pt Temp 57.3 H 58.1 H ABG pO2 at Pt Temp 131 H 67.5 L ABG HCO3 17.8 L 15.0 L ABG O2 Sat (Measured) 96.9 78.5 L ABG O2 Content 12.4 10.7 ABG Base Excess -11.0 L -15.1 L Atul Test Positive Positive O2 Delivery Device Oxygen Flow Rate 100 100% Vent Mode Vol/ac A/c Vent Rate 14 14 PEEP 5.0 5.0 Pressure Support Vent 400 400 Sodium Potassium Chloride Carbon Dioxide Anion Gap BUN Creatinine Est GFR (CKD-EPI)AfAm Est GFR (CKD-EPI)NonAf POC Glucometer 312 Random Glucose Lactic Acid Calcium Phosphorus Magnesium Iron TIBC Iron Saturation Unsaturated IBC Ferritin Total Bilirubin AST ALT Alkaline Phosphatase Creatine Kinase Troponin I Total Protein Albumin Prealbumin Triglycerides Cholesterol Total LDL Cholesterol HDL Cholesterol Beta-Hydroxybutyrate Urine Color Urine Appearance Urine pH Ur Specific Carter Urine Protein Urine Glucose (UA) Urine Ketones Urine Blood Urine Nitrite Urine Bilirubin Urine Urobilinogen Ur Leukocyte Esterase Urine WBC (Auto) Urine RBC (Auto) U Epithel Cells (Auto) Urine Bacteria (Auto) Stool Occult Blood Acetone, Qual B-Hydroxybutyrate 03/19/19 03/19/19 03/19/19 09:11 10:41 15:30 WBC RBC Hgb Hct MCV MCH MCHC RDW Plt Count MPV Absolute Neuts (auto) Total Counted Neutrophils % Neutrophils % (Manual) Band Neutrophils % Lymphocytes % Lymphocytes % (Manual) Monocytes % Monocytes % (Manual) Eosinophils % Eosinophils % (Manual) Basophils % Basophils % (Manual) Myelocytes % (Man) Promyelocytes % (Man) Blast Cells % (Manual) Nucleated RBC % Metamyelocytes Hypochromia Toxic Granulation Platelet Estimate Platelet Comment Polychromasia Poikilocytosis Anisocytosis Microcytosis Macrocytosis Spherocytes Target Cells Tear Drop Cells Ovalocytes [place] Cells Schistocytes PT with INR INR PTT (Actin FS) Fibrinogen Puncture Site Right radial ABG pH 7.23 L ABG pCO2 at Pt Temp 54.7 H ABG pO2 at Pt Temp 86.4 ABG HCO3 21.9 L ABG O2 Sat (Measured) 93.7 L ABG O2 Content 11.6 ABG Base Excess -5.2 L Atul Test Positive O2 Delivery Device Oxygen Flow Rate 100 Vent Mode Vol/ac Vent Rate 14 PEEP 5.0 Pressure Support Vent 400 Sodium Potassium Chloride Carbon Dioxide Anion Gap BUN Creatinine Est GFR (CKD-EPI)AfAm Est GFR (CKD-EPI)NonAf POC Glucometer 303 Random Glucose Lactic Acid 2.3 H* Calcium Phosphorus Magnesium Iron TIBC Iron Saturation Unsaturated IBC Ferritin Total Bilirubin AST ALT Alkaline Phosphatase Creatine Kinase Troponin I Total Protein Albumin Prealbumin Triglycerides Cholesterol Total LDL Cholesterol HDL Cholesterol Beta-Hydroxybutyrate Urine Color Urine Appearance Urine pH Ur Specific Carter Urine Protein Urine Glucose (UA) Urine Ketones Urine Blood Urine Nitrite Urine Bilirubin Urine Urobilinogen Ur Leukocyte Esterase Urine WBC (Auto) Urine RBC (Auto) U Epithel Cells (Auto) Urine Bacteria (Auto) Stool Occult Blood Acetone, Qual B-Hydroxybutyrate 03/19/19 03/19/19 03/19/19 15:40 15:40 17:26 WBC 11.7 H RBC 3.31 L Hgb 7.9 L Hct 25.2 L D MCV 76.1 L MCH 23.8 L MCHC 31.3 L RDW 24.4 H Plt Count 125 L D MPV 9.9 Absolute Neuts (auto) 10.7 H Total Counted 100 Neutrophils % 92.1 H Neutrophils % (Manual) 77.0 Band Neutrophils % 3.0 Lymphocytes % 5.8 L D Lymphocytes % (Manual) 14.0 D Monocytes % 2.0 L Monocytes % (Manual) 3 L Eosinophils % 0.0 D Eosinophils % (Manual) Basophils % 0.1 Basophils % (Manual) Myelocytes % (Man) 3 H D Promyelocytes % (Man) Blast Cells % (Manual) Nucleated RBC % 1 H Metamyelocytes Hypochromia 1+ Toxic Granulation Platelet Estimate Adequate Platelet Comment Polychromasia Poikilocytosis Anisocytosis 3+ Microcytosis Macrocytosis Spherocytes Target Cells Tear Drop Cells Ovalocytes [place] Cells Schistocytes 1+ PT with INR INR PTT (Actin FS) Fibrinogen Puncture Site ABG pH ABG pCO2 at Pt Temp ABG pO2 at Pt Temp ABG HCO3 ABG O2 Sat (Measured) ABG O2 Content ABG Base Excess Atul Test O2 Delivery Device Oxygen Flow Rate Vent Mode Vent Rate PEEP Pressure Support Vent Sodium 146 H Potassium 2.9 L* Chloride 107 Carbon Dioxide 29 Anion Gap 10 BUN 6.9 L Creatinine 0.7 Est GFR (CKD-EPI)AfAm 117.91 Est GFR (CKD-EPI)NonAf 101.74 POC Glucometer 315 Random Glucose 293 H Lactic Acid Calcium 6.9 L* Phosphorus Magnesium 1.8 Iron TIBC Iron Saturation Unsaturated IBC Ferritin Total Bilirubin 0.4 AST 49 H ALT 17 Alkaline Phosphatase 586 H Creatine Kinase 109 Troponin I 1.01 H* Total Protein 4.5 L Albumin 1.3 L Prealbumin Triglycerides Cholesterol Total LDL Cholesterol HDL Cholesterol Beta-Hydroxybutyrate Urine Color Urine Appearance Urine pH Ur Specific Carter Urine Protein Urine Glucose (UA) Urine Ketones Urine Blood Urine Nitrite Urine Bilirubin Urine Urobilinogen Ur Leukocyte Esterase Urine WBC (Auto) Urine RBC (Auto) U Epithel Cells (Auto) Urine Bacteria (Auto) Stool Occult Blood Acetone, Qual B-Hydroxybutyrate 03/19/19 03/19/19 03/19/19 21:35 21:35 21:45 WBC 8.1 RBC 2.86 L Hgb 6.9 L* Hct 21.4 L D MCV 75.0 L MCH 24.0 L MCHC 32.0 RDW 24.0 H Plt Count 92 L D MPV 9.7 Absolute Neuts (auto) 6.9 Total Counted 100 Neutrophils % 85.0 H Neutrophils % (Manual) 74.0 Band Neutrophils % 7.0 Lymphocytes % 12.1 D Lymphocytes % (Manual) 12.0 Monocytes % 2.7 L Monocytes % (Manual) 4 Eosinophils % 0.1 D Eosinophils % (Manual) Basophils % 0.1 Basophils % (Manual) Myelocytes % (Man) 1 D Promyelocytes % (Man) Blast Cells % (Manual) Nucleated RBC % 1 H Metamyelocytes 1 D Hypochromia 2+ Toxic Granulation Platelet Estimate Decreased Platelet Comment Polychromasia 1+ Poikilocytosis Anisocytosis 2+ Microcytosis Macrocytosis Spherocytes Target Cells Tear Drop Cells Ovalocytes [place] Cells Schistocytes PT with INR INR PTT (Actin FS) Fibrinogen Puncture Site Right radial ABG pH 7.48 H ABG pCO2 at Pt Temp 40.8 ABG pO2 at Pt Temp 264 H ABG HCO3 29.9 H ABG O2 Sat (Measured) 99.8 H ABG O2 Content 10.1 ABG Base Excess 6.2 H Atul Test Positive O2 Delivery Device Ventilater Oxygen Flow Rate 80% Vent Mode Vent Rate 14 PEEP 5.0 Pressure Support Vent 400 Sodium Potassium Chloride Carbon Dioxide Anion Gap BUN Creatinine Est GFR (CKD-EPI)AfAm Est GFR (CKD-EPI)NonAf POC Glucometer 192 Random Glucose Lactic Acid Calcium Phosphorus Magnesium Iron TIBC Iron Saturation Unsaturated IBC Ferritin Total Bilirubin AST ALT Alkaline Phosphatase Creatine Kinase Troponin I Total Protein Albumin Prealbumin Triglycerides Cholesterol Total LDL Cholesterol HDL Cholesterol Beta-Hydroxybutyrate Urine Color Urine Appearance Urine pH Ur Specific [place] Urine Protein Urine Glucose (UA) Urine Ketones Urine Blood Urine Nitrite Urine Bilirubin Urine Urobilinogen Ur Leukocyte Esterase Urine WBC (Auto) Urine RBC (Auto) U Epithel Cells (Auto) Urine Bacteria (Auto) Stool Occult Blood Acetone, Qual B-Hydroxybutyrate 0903/19/19 03/19/19 23:15 23:15 23:15 WBC RBC Hgb Hct MCV MCH MCHC RDW Plt Count MPV Absolute Neuts (auto) Total Counted Neutrophils % Neutrophils % (Manual) Band Neutrophils % Lymphocytes % Lymphocytes % (Manual) Monocytes % Monocytes % (Manual) Eosinophils % Eosinophils % (Manual) Basophils % Basophils % (Manual) Myelocytes % (Man) Promyelocytes % (Man) Blast Cells % (Manual) Nucleated RBC % Metamyelocytes Hypochromia Toxic Granulation Platelet Estimate Platelet Comment Polychromasia Poikilocytosis Anisocytosis Microcytosis Macrocytosis Spherocytes Target Cells Tear Drop Cells Ovalocytes [place] Cells Schistocytes PT with INR 17.70 H INR 1.49 H PTT (Actin FS) 36.3 Fibrinogen 359.0 Puncture Site ABG pH ABG pCO2 at Pt Temp ABG pO2 at Pt Temp ABG HCO3 ABG O2 Sat (Measured) ABG O2 Content ABG Base Excess Atul Test O2 Delivery Device Oxygen Flow Rate Vent Mode Vent Rate PEEP Pressure Support Vent Sodium 146 H Potassium 3.1 L Chloride 108 H Carbon Dioxide 32 Anion Gap 6 L BUN 7.1 Creatinine 0.6 Est GFR (CKD-EPI)AfAm 124.05 Est GFR (CKD-EPI)NonAf 107.03 POC Glucometer Random Glucose 227 H Lactic Acid Calcium 6.4 L* Phosphorus Magnesium Iron TIBC Iron Saturation Unsaturated IBC Ferritin Total Bilirubin 0.4 AST 37 ALT 13 Alkaline Phosphatase 460 H Creatine Kinase Troponin I 1.94 H* Total Protein 4.0 L Albumin 1.2 L Prealbumin Triglycerides Cholesterol Total LDL Cholesterol HDL Cholesterol Beta-Hydroxybutyrate Urine Color Urine Appearance Urine pH Ur Specific Carter Urine Protein Urine Glucose (UA) Urine Ketones Urine Blood Urine Nitrite Urine Bilirubin Urine Urobilinogen Ur Leukocyte Esterase Urine WBC (Auto) Urine RBC (Auto) U Epithel Cells (Auto) Urine Bacteria (Auto) Stool Occult Blood Acetone, Qual B-Hydroxybutyrate 03/19/19 03/20/19 03/20/19 23:15 05:30 05:30 WBC 9.9 RBC 2.90 L Hgb 7.1 L Hct 21.8 L MCV 75.3 L MCH 24.5 L MCHC 32.5 RDW 24.3 H Plt Count 72 L D MPV 9.3 Absolute Neuts (auto) 8.4 H Total Counted Neutrophils % 84.5 H Neutrophils % (Manual) 81.0 Band Neutrophils % 1.0 Lymphocytes % 12.6 Lymphocytes % (Manual) 11.0 Monocytes % 1.9 L Monocytes % (Manual) 2 L Eosinophils % 0.8 D Eosinophils % (Manual) 0.0 D Basophils % 0.2 Basophils % (Manual) 0.0 Myelocytes % (Man) 2 D Promyelocytes % (Man) 0 Blast Cells % (Manual) 0 Nucleated RBC % 1 H Metamyelocytes 3 H D Hypochromia 2+ Toxic Granulation Platelet Estimate Decreased Platelet Comment Polychromasia 3+ Poikilocytosis 1+ Anisocytosis 3+ Microcytosis 3+ Macrocytosis 0 Spherocytes Target Cells Tear Drop Cells Ovalocytes 1+ [place] Cells Schistocytes PT with INR INR PTT (Actin FS) 33.4 Fibrinogen Puncture Site ABG pH ABG pCO2 at Pt Temp ABG pO2 at Pt Temp ABG HCO3 ABG O2 Sat (Measured) ABG O2 Content ABG Base Excess Atul Test O2 Delivery Device Oxygen Flow Rate Vent Mode Vent Rate PEEP Pressure Support Vent Sodium Potassium Chloride Carbon Dioxide Anion Gap BUN Creatinine Est GFR (CKD-EPI)AfAm Est GFR (CKD-EPI)NonAf POC Glucometer Random Glucose Lactic Acid Calcium Phosphorus Magnesium Iron TIBC Iron Saturation Unsaturated IBC Ferritin Total Bilirubin AST ALT Alkaline Phosphatase Creatine Kinase Troponin I Cancelled Total Protein Albumin Prealbumin Triglycerides Cholesterol Total LDL Cholesterol HDL Cholesterol Beta-Hydroxybutyrate Urine Color Urine Appearance Urine pH Ur Specific Carter Urine Protein Urine Glucose (UA) Urine Ketones Urine Blood Urine Nitrite Urine Bilirubin Urine Urobilinogen Ur Leukocyte Esterase Urine WBC (Auto) Urine RBC (Auto) U Epithel Cells (Auto) Urine Bacteria (Auto) Stool Occult Blood Acetone, Qual B-Hydroxybutyrate 03/20/19 03/20/19 03/20/19 05:30 05:30 05:40 WBC RBC Hgb Hct MCV MCH MCHC RDW Plt Count MPV Absolute Neuts (auto) Total Counted Neutrophils % Neutrophils % (Manual) Band Neutrophils % Lymphocytes % Lymphocytes % (Manual) Monocytes % Monocytes % (Manual) Eosinophils % Eosinophils % (Manual) Basophils % Basophils % (Manual) Myelocytes % (Man) Promyelocytes % (Man) Blast Cells % (Manual) Nucleated RBC % Metamyelocytes Hypochromia Toxic Granulation Platelet Estimate Platelet Comment Polychromasia Poikilocytosis Anisocytosis Microcytosis Macrocytosis Spherocytes Target Cells Tear Drop Cells Ovalocytes [place] Cells Schistocytes PT with INR INR PTT (Actin FS) Fibrinogen Puncture Site ABG pH ABG pCO2 at Pt Temp ABG pO2 at Pt Temp ABG HCO3 ABG O2 Sat (Measured) ABG O2 Content ABG Base Excess Atul Test O2 Delivery Device Oxygen Flow Rate Vent Mode Vent Rate PEEP Pressure Support Vent Sodium 145 Potassium 3.2 L Chloride 106 Carbon Dioxide 27 Anion Gap 11 BUN 10.1 Creatinine 0.5 L Est GFR (CKD-EPI)AfAm 131.72 Est GFR (CKD-EPI)NonAf 113.65 POC Glucometer 397 Random Glucose 366 H Lactic Acid Calcium 6.7 L* Phosphorus 0.7 L* Magnesium 2.0 Iron TIBC Iron Saturation Unsaturated IBC Ferritin Total Bilirubin 0.3 AST 29 ALT 12 L Alkaline Phosphatase 422 H Creatine Kinase Troponin I Total Protein 4.0 L Albumin 1.2 L Prealbumin Triglycerides Cholesterol Total LDL Cholesterol HDL Cholesterol Beta-Hydroxybutyrate Urine Color Urine Appearance Urine pH Ur Specific Carter Urine Protein Urine Glucose (UA) Urine Ketones Urine Blood Urine Nitrite Urine Bilirubin Urine Urobilinogen Ur Leukocyte Esterase Urine WBC (Auto) Urine RBC (Auto) U Epithel Cells (Auto) Urine Bacteria (Auto) Stool Occult Blood Positive Acetone, Qual B-Hydroxybutyrate 03/20/19 03/20/19 03/20/19 09:59 10:59 12:24 WBC RBC Hgb Hct MCV MCH MCHC RDW Plt Count MPV Absolute Neuts (auto) Total Counted Neutrophils % Neutrophils % (Manual) Band Neutrophils % Lymphocytes % Lymphocytes % (Manual) Monocytes % Monocytes % (Manual) Eosinophils % Eosinophils % (Manual) Basophils % Basophils % (Manual) Myelocytes % (Man) Promyelocytes % (Man) Blast Cells % (Manual) Nucleated RBC % Metamyelocytes Hypochromia Toxic Granulation Platelet Estimate Platelet Comment Polychromasia Poikilocytosis Anisocytosis Microcytosis Macrocytosis Spherocytes Target Cells Tear Drop Cells Ovalocytes [place] Cells Schistocytes PT with INR INR PTT (Actin FS) Fibrinogen Puncture Site ABG pH ABG pCO2 at Pt Temp ABG pO2 at Pt Temp ABG HCO3 ABG O2 Sat (Measured) ABG O2 Content ABG Base Excess Atul Test O2 Delivery Device Oxygen Flow Rate Vent Mode Vent Rate PEEP Pressure Support Vent Sodium Potassium Chloride Carbon Dioxide Anion Gap BUN Creatinine Est GFR (CKD-EPI)AfAm Est GFR (CKD-EPI)NonAf POC Glucometer [phone] Random Glucose Lactic Acid Calcium Phosphorus Magnesium Iron TIBC Iron Saturation Unsaturated IBC Ferritin Total Bilirubin AST ALT Alkaline Phosphatase Creatine Kinase Troponin I Total Protein Albumin Prealbumin Triglycerides Cholesterol Total LDL Cholesterol HDL Cholesterol Beta-Hydroxybutyrate Urine Color Urine Appearance Urine pH Ur Specific Carter Urine Protein Urine Glucose (UA) Urine Ketones Urine Blood Urine Nitrite Urine Bilirubin Urine Urobilinogen Ur Leukocyte Esterase Urine WBC (Auto) Urine RBC (Auto) U Epithel Cells (Auto) Urine Bacteria (Auto) Stool Occult Blood Acetone, Qual B-Hydroxybutyrate 03/20/19 03/20/19 03/20/19 13:14 14:08 17:00 WBC RBC Hgb Hct MCV MCH MCHC RDW Plt Count MPV Absolute Neuts (auto) Total Counted Neutrophils % Neutrophils % (Manual) Band Neutrophils % Lymphocytes % Lymphocytes % (Manual) Monocytes % Monocytes % (Manual) Eosinophils % Eosinophils % (Manual) Basophils % Basophils % (Manual) Myelocytes % (Man) Promyelocytes % (Man) Blast Cells % (Manual) Nucleated RBC % Metamyelocytes Hypochromia Toxic Granulation Platelet Estimate Platelet Comment Polychromasia Poikilocytosis Anisocytosis Microcytosis Macrocytosis Spherocytes Target Cells Tear Drop Cells Ovalocytes [place] Cells Schistocytes PT with INR INR PTT (Actin FS) Fibrinogen Puncture Site ABG pH ABG pCO2 at Pt Temp ABG pO2 at Pt Temp ABG HCO3 ABG O2 Sat (Measured) ABG O2 Content ABG Base Excess Atul Test O2 Delivery Device Oxygen Flow Rate Vent Mode Vent Rate PEEP Pressure Support Vent Sodium 143 Potassium 3.5 Chloride 104 Carbon Dioxide 29 Anion Gap 10 BUN 10.5 Creatinine 0.4 L Est GFR (CKD-EPI)AfAm 141.75 Est GFR (CKD-EPI)NonAf 122.30 POC Glucometer 139 134 Random Glucose 315 H Lactic Acid Calcium 6.4 L* Phosphorus 2.4 L Magnesium 1.7 L Iron 125 TIBC 124 L Iron Saturation 100 H Unsaturated IBC -1 L Ferritin 220.2 Total Bilirubin AST ALT Alkaline Phosphatase Creatine Kinase Troponin I Total Protein Albumin Prealbumin Triglycerides Cholesterol Total LDL Cholesterol HDL Cholesterol Beta-Hydroxybutyrate Urine Color Urine Appearance Urine pH Ur Specific Carter Urine Protein Urine Glucose (UA) Urine Ketones Urine Blood Urine Nitrite Urine Bilirubin Urine Urobilinogen Ur Leukocyte Esterase Urine WBC (Auto) Urine RBC (Auto) U Epithel Cells (Auto) Urine Bacteria (Auto) Stool Occult Blood Acetone, Qual B-Hydroxybutyrate 03/20/19 03/20/19 03/20/19 17:32 19:44 21:48 WBC RBC Hgb Hct MCV MCH MCHC RDW Plt Count MPV Absolute Neuts (auto) Total Counted Neutrophils % Neutrophils % (Manual) Band Neutrophils % Lymphocytes % Lymphocytes % (Manual) Monocytes % Monocytes % (Manual) Eosinophils % Eosinophils % (Manual) Basophils % Basophils % (Manual) Myelocytes % (Man) Promyelocytes % (Man) Blast Cells % (Manual) Nucleated RBC % Metamyelocytes Hypochromia Toxic Granulation Platelet Estimate Platelet Comment Polychromasia Poikilocytosis Anisocytosis Microcytosis Macrocytosis Spherocytes Target Cells Tear Drop Cells Ovalocytes [place] Cells Schistocytes PT with INR INR PTT (Actin FS) Fibrinogen Puncture Site ABG pH ABG pCO2 at Pt Temp ABG pO2 at Pt Temp ABG HCO3 ABG O2 Sat (Measured) ABG O2 Content ABG Base Excess Atul Test O2 Delivery Device Oxygen Flow Rate Vent Mode Vent Rate PEEP Pressure Support Vent Sodium Potassium Chloride Carbon Dioxide Anion Gap BUN Creatinine Est GFR (CKD-EPI)AfAm Est GFR (CKD-EPI)NonAf POC Glucometer [phone] Random Glucose Lactic Acid Calcium Phosphorus Magnesium Iron TIBC Iron Saturation Unsaturated IBC Ferritin Total Bilirubin AST ALT Alkaline Phosphatase Creatine Kinase Troponin I Total Protein Albumin Prealbumin Triglycerides Cholesterol Total LDL Cholesterol HDL Cholesterol Beta-Hydroxybutyrate Urine Color Urine Appearance Urine pH Ur Specific Carter Urine Protein Urine Glucose (UA) Urine Ketones Urine Blood Urine Nitrite Urine Bilirubin Urine Urobilinogen Ur Leukocyte Esterase Urine WBC (Auto) Urine RBC (Auto) U Epithel Cells (Auto) Urine Bacteria (Auto) Stool Occult Blood Acetone, Qual B-Hydroxybutyrate 03/20/19 03/21/19 03/21/19 23:26 00:36 01:42 WBC RBC Hgb Hct MCV MCH MCHC RDW Plt Count MPV Absolute Neuts (auto) Total Counted Neutrophils % Neutrophils % (Manual) Band Neutrophils % Lymphocytes % Lymphocytes % (Manual) Monocytes % Monocytes % (Manual) Eosinophils % Eosinophils % (Manual) Basophils % Basophils % (Manual) Myelocytes % (Man) Promyelocytes % (Man) Blast Cells % (Manual) Nucleated RBC % Metamyelocytes Hypochromia Toxic Granulation Platelet Estimate Platelet Comment Polychromasia Poikilocytosis Anisocytosis Microcytosis Macrocytosis Spherocytes Target Cells Tear Drop Cells Ovalocytes [place] Cells Schistocytes PT with INR INR PTT (Actin FS) Fibrinogen Puncture Site ABG pH ABG pCO2 at Pt Temp ABG pO2 at Pt Temp ABG HCO3 ABG O2 Sat (Measured) ABG O2 Content ABG Base Excess Atul Test O2 Delivery Device Oxygen Flow Rate Vent Mode Vent Rate PEEP Pressure Support Vent Sodium Potassium Chloride Carbon Dioxide Anion Gap BUN Creatinine Est GFR (CKD-EPI)AfAm Est GFR (CKD-EPI)NonAf POC Glucometer 88 [phone] Random Glucose Lactic Acid Calcium Phosphorus Magnesium Iron TIBC Iron Saturation Unsaturated IBC Ferritin Total Bilirubin AST ALT Alkaline Phosphatase Creatine Kinase Troponin I Total Protein Albumin Prealbumin Triglycerides Cholesterol Total LDL Cholesterol HDL Cholesterol Beta-Hydroxybutyrate Urine Color Urine Appearance Urine pH Ur Specific Carter Urine Protein Urine Glucose (UA) Urine Ketones Urine Blood Urine Nitrite Urine Bilirubin Urine Urobilinogen Ur Leukocyte Esterase Urine WBC (Auto) Urine RBC (Auto) U Epithel Cells (Auto) Urine Bacteria (Auto) Stool Occult Blood Acetone, Qual B-Hydroxybutyrate 03/21/19 03/21/19 03/21/19 02:46 04:55 05:30 WBC 12.0 H RBC 3.85 Hgb 9.9 L Hct 29.9 L D MCV 77.7 L MCH 25.6 L MCHC 33.0 RDW 21.8 H Plt Count 87 L D MPV 9.6 Absolute Neuts (auto) 9.6 H Total Counted Neutrophils % 79.3 Neutrophils % (Manual) 72.7 Band Neutrophils % 1.0 Lymphocytes % 15.9 D Lymphocytes % (Manual) 19.2 D Monocytes % 2.1 L Monocytes % (Manual) 3 L Eosinophils % 2.4 D Eosinophils % (Manual) 3.1 D Basophils % 0.3 Basophils % (Manual) 0.0 Myelocytes % (Man) 0 D Promyelocytes % (Man) 0 Blast Cells % (Manual) 0 Nucleated RBC % 0 Metamyelocytes 1 D Hypochromia 0 Toxic Granulation Platelet Estimate Decreased Platelet Comment Polychromasia 1+ Poikilocytosis 0 Anisocytosis 1+ Microcytosis 1+ Macrocytosis 0 Spherocytes Target Cells 2+ Tear Drop Cells Ovalocytes 1+ [place] Cells Schistocytes PT with INR INR PTT (Actin FS) Fibrinogen Puncture Site ABG pH ABG pCO2 at Pt Temp ABG pO2 at Pt Temp ABG HCO3 ABG O2 Sat (Measured) ABG O2 Content ABG Base Excess Atul Test O2 Delivery Device Oxygen Flow Rate Vent Mode Vent Rate PEEP Pressure Support Vent Sodium Potassium Chloride Carbon Dioxide Anion Gap BUN Creatinine Est GFR (CKD-EPI)AfAm Est GFR (CKD-EPI)NonAf POC Glucometer 265 225 Random Glucose Lactic Acid Calcium Phosphorus Magnesium Iron TIBC Iron Saturation Unsaturated IBC Ferritin Total Bilirubin AST ALT Alkaline Phosphatase Creatine Kinase Troponin I Total Protein Albumin Prealbumin Triglycerides Cholesterol Total LDL Cholesterol HDL Cholesterol Beta-Hydroxybutyrate Urine Color Urine Appearance Urine pH Ur Specific Carter Urine Protein Urine Glucose (UA) Urine Ketones Urine Blood Urine Nitrite Urine Bilirubin Urine Urobilinogen Ur Leukocyte Esterase Urine WBC (Auto) Urine RBC (Auto) U Epithel Cells (Auto) Urine Bacteria (Auto) Stool Occult Blood Acetone, Qual B-Hydroxybutyrate 03/21/19 03/21/19 03/21/19 05:30 05:30 06:00 WBC RBC Hgb Hct MCV MCH MCHC RDW Plt Count MPV Absolute Neuts (auto) Total Counted Neutrophils % Neutrophils % (Manual) Band Neutrophils % Lymphocytes % Lymphocytes % (Manual) Monocytes % Monocytes % (Manual) Eosinophils % Eosinophils % (Manual) Basophils % Basophils % (Manual) Myelocytes % (Man) Promyelocytes % (Man) Blast Cells % (Manual) Nucleated RBC % Metamyelocytes Hypochromia Toxic Granulation Platelet Estimate Platelet Comment Polychromasia Poikilocytosis Anisocytosis Microcytosis Macrocytosis Spherocytes Target Cells Tear Drop Cells Ovalocytes [place] Cells Schistocytes PT with INR INR PTT (Actin FS) Fibrinogen Puncture Site Left radial ABG pH 7.46 H ABG pCO2 at Pt Temp 44.1 ABG pO2 at Pt Temp 134 H ABG HCO3 30.6 H ABG O2 Sat (Measured) 98.8 H ABG O2 Content 17.0 ABG Base Excess 6.3 H Atul Test Positive O2 Delivery Device Vent Oxygen Flow Rate 40% Vent Mode A/c Vent Rate 14 PEEP 5.0 Pressure Support Vent 400 Sodium 142 Potassium 2.9 L* Chloride 103 Carbon Dioxide 31 Anion Gap 8 BUN 14.5 Creatinine 0.5 L Est GFR (CKD-EPI)AfAm 131.72 Est GFR (CKD-EPI)NonAf 113.65 POC Glucometer Random Glucose 242 H Lactic Acid 3.4 H* Calcium 6.6 L* Phosphorus Magnesium 1.6 L Iron TIBC Iron Saturation Unsaturated IBC Ferritin Total Bilirubin 0.5 AST 22 ALT 10 L Alkaline Phosphatase 332 H Creatine Kinase Troponin I Total Protein 4.2 L Albumin 1.2 L Prealbumin Triglycerides Cholesterol Total LDL Cholesterol HDL Cholesterol Beta-Hydroxybutyrate Urine Color Urine Appearance Urine pH Ur Specific Carter Urine Protein Urine Glucose (UA) Urine Ketones Urine Blood Urine Nitrite Urine Bilirubin Urine Urobilinogen Ur Leukocyte Esterase Urine WBC (Auto) Urine RBC (Auto) U Epithel Cells (Auto) Urine Bacteria (Auto) Stool Occult Blood Acetone, Qual B-Hydroxybutyrate 03/21/19 03/21/19 03/21/19 06:21 07:06 08:46 WBC RBC Hgb Hct MCV MCH MCHC RDW Plt Count MPV Absolute Neuts (auto) Total Counted Neutrophils % Neutrophils % (Manual) Band Neutrophils % Lymphocytes % Lymphocytes % (Manual) Monocytes % Monocytes % (Manual) Eosinophils % Eosinophils % (Manual) Basophils % Basophils % (Manual) Myelocytes % (Man) Promyelocytes % (Man) Blast Cells % (Manual) Nucleated RBC % Metamyelocytes Hypochromia Toxic Granulation Platelet Estimate Platelet Comment Polychromasia Poikilocytosis Anisocytosis Microcytosis Macrocytosis Spherocytes Target Cells Tear Drop Cells Ovalocytes [place] Cells Schistocytes PT with INR INR PTT (Actin FS) Fibrinogen Puncture Site ABG pH ABG pCO2 at Pt Temp ABG pO2 at Pt Temp ABG HCO3 ABG O2 Sat (Measured) ABG O2 Content ABG Base Excess Atul Test O2 Delivery Device Oxygen Flow Rate Vent Mode Vent Rate PEEP Pressure Support Vent Sodium Potassium Chloride Carbon Dioxide Anion Gap BUN Creatinine Est GFR (CKD-EPI)AfAm Est GFR (CKD-EPI)NonAf POC Glucometer [phone] 97 Random Glucose Lactic Acid Calcium Phosphorus Magnesium Iron TIBC Iron Saturation Unsaturated IBC Ferritin Total Bilirubin AST ALT Alkaline Phosphatase Creatine Kinase Troponin I Total Protein Albumin Prealbumin Triglycerides Cholesterol Total LDL Cholesterol HDL Cholesterol Beta-Hydroxybutyrate Urine Color Urine Appearance Urine pH Ur Specific [place] Urine Protein Urine Glucose (UA) Urine Ketones Urine Blood Urine Nitrite Urine Bilirubin Urine Urobilinogen Ur Leukocyte Esterase Urine WBC (Auto) Urine RBC (Auto) U Epithel Cells (Auto) Urine Bacteria (Auto) Stool Occult Blood Acetone, Qual B-Hydroxybutyrate 03/21/19 03/21/19 03/21/19 10:28 12:29 14:44 WBC RBC Hgb Hct MCV MCH MCHC RDW Plt Count MPV Absolute Neuts (auto) Total Counted Neutrophils % Neutrophils % (Manual) Band Neutrophils % Lymphocytes % Lymphocytes % (Manual) Monocytes % Monocytes % (Manual) Eosinophils % Eosinophils % (Manual) Basophils % Basophils % (Manual) Myelocytes % (Man) Promyelocytes % (Man) Blast Cells % (Manual) Nucleated RBC % Metamyelocytes Hypochromia Toxic Granulation Platelet Estimate Platelet Comment Polychromasia Poikilocytosis Anisocytosis Microcytosis Macrocytosis Spherocytes Target Cells Tear Drop Cells Ovalocytes [place] Cells Schistocytes PT with INR INR PTT (Actin FS) Fibrinogen Puncture Site ABG pH ABG pCO2 at Pt Temp ABG pO2 at Pt Temp ABG HCO3 ABG O2 Sat (Measured) ABG O2 Content ABG Base Excess Atul Test O2 Delivery Device Oxygen Flow Rate Vent Mode Vent Rate PEEP Pressure Support Vent Sodium Potassium Chloride Carbon Dioxide Anion Gap BUN Creatinine Est GFR (CKD-EPI)AfAm Est GFR (CKD-EPI)NonAf POC Glucometer [phone] Random Glucose Lactic Acid Calcium Phosphorus Magnesium Iron TIBC Iron Saturation Unsaturated IBC Ferritin Total Bilirubin AST ALT Alkaline Phosphatase Creatine Kinase Troponin I Total Protein Albumin Prealbumin Triglycerides Cholesterol Total LDL Cholesterol HDL Cholesterol Beta-Hydroxybutyrate Urine Color Urine Appearance Urine pH Ur Specific [place] Urine Protein Urine Glucose (UA) Urine Ketones Urine Blood Urine Nitrite Urine Bilirubin Urine Urobilinogen Ur Leukocyte Esterase Urine WBC (Auto) Urine RBC (Auto) U Epithel Cells (Auto) Urine Bacteria (Auto) Stool Occult Blood Acetone, Qual B-Hydroxybutyrate 03/21/19 03/21/19 03/21/19 16:27 18:15 18:25 WBC RBC Hgb Hct MCV MCH MCHC RDW Plt Count MPV Absolute Neuts (auto) Total Counted Neutrophils % Neutrophils % (Manual) Band Neutrophils % Lymphocytes % Lymphocytes % (Manual) Monocytes % Monocytes % (Manual) Eosinophils % Eosinophils % (Manual) Basophils % Basophils % (Manual) Myelocytes % (Man) Promyelocytes % (Man) Blast Cells % (Manual) Nucleated RBC % Metamyelocytes Hypochromia Toxic Granulation Platelet Estimate Platelet Comment Polychromasia Poikilocytosis Anisocytosis Microcytosis Macrocytosis Spherocytes Target Cells Tear Drop Cells Ovalocytes [place] Cells Schistocytes PT with INR INR PTT (Actin FS) Fibrinogen Puncture Site ABG pH ABG pCO2 at Pt Temp ABG pO2 at Pt Temp ABG HCO3 ABG O2 Sat (Measured) ABG O2 Content ABG Base Excess Atul Test O2 Delivery Device Oxygen Flow Rate Vent Mode Vent Rate PEEP Pressure Support Vent Sodium 143 Potassium 3.1 L Chloride 105 Carbon Dioxide 28 Anion Gap 10 BUN 17.0 Creatinine 0.6 Est GFR (CKD-EPI)AfAm 124.05 Est GFR (CKD-EPI)NonAf 107.03 POC Glucometer 257 136 Random Glucose 137 H Lactic Acid Calcium 7.1 L Phosphorus 1.2 L Magnesium 2.2 Iron TIBC Iron Saturation Unsaturated IBC Ferritin Total Bilirubin AST ALT Alkaline Phosphatase Creatine Kinase Troponin I Total Protein Albumin Prealbumin Triglycerides Cholesterol Total LDL Cholesterol HDL Cholesterol Beta-Hydroxybutyrate 1.7 Urine Color Urine Appearance Urine pH Ur Specific [place] Urine Protein Urine Glucose (UA) Urine Ketones Urine Blood Urine Nitrite Urine Bilirubin Urine Urobilinogen Ur Leukocyte Esterase Urine WBC (Auto) Urine RBC (Auto) U Epithel Cells (Auto) Urine Bacteria (Auto) Stool Occult Blood Acetone, Qual B-Hydroxybutyrate 03/21/19 03/21/19 03/22/19 20:20 21:31 00:00 WBC RBC Hgb Hct MCV MCH MCHC RDW Plt Count MPV Absolute Neuts (auto) Total Counted Neutrophils % Neutrophils % (Manual) Band Neutrophils % Lymphocytes % Lymphocytes % (Manual) Monocytes % Monocytes % (Manual) Eosinophils % Eosinophils % (Manual) Basophils % Basophils % (Manual) Myelocytes % (Man) Promyelocytes % (Man) Blast Cells % (Manual) Nucleated RBC % Metamyelocytes Hypochromia Toxic Granulation Platelet Estimate Platelet Comment Polychromasia Poikilocytosis Anisocytosis Microcytosis Macrocytosis Spherocytes Target Cells Tear Drop Cells Ovalocytes [place] Cells Schistocytes PT with INR INR PTT (Actin FS) Fibrinogen Puncture Site ABG pH ABG pCO2 at Pt Temp ABG pO2 at Pt Temp ABG HCO3 ABG O2 Sat (Measured) ABG O2 Content ABG Base Excess Atul Test O2 Delivery Device Oxygen Flow Rate Vent Mode Vent Rate PEEP Pressure Support Vent Sodium Potassium Chloride Carbon Dioxide Anion Gap BUN Creatinine Est GFR (CKD-EPI)AfAm Est GFR (CKD-EPI)NonAf POC Glucometer 93 [phone] Random Glucose Lactic Acid Calcium Phosphorus Magnesium Iron TIBC Iron Saturation Unsaturated IBC Ferritin Total Bilirubin AST ALT Alkaline Phosphatase Creatine Kinase Troponin I Total Protein Albumin Prealbumin Triglycerides Cholesterol Total LDL Cholesterol HDL Cholesterol Beta-Hydroxybutyrate Urine Color Urine Appearance Urine pH Ur Specific [place] Urine Protein Urine Glucose (UA) Urine Ketones Urine Blood Urine Nitrite Urine Bilirubin Urine Urobilinogen Ur Leukocyte Esterase Urine WBC (Auto) Urine RBC (Auto) U Epithel Cells (Auto) Urine Bacteria (Auto) Stool Occult Blood Acetone, Qual B-Hydroxybutyrate 03/22/19 03/22/19 03/22/19 02:29 04:38 05:10 WBC 11.1 H RBC 3.88 Hgb 10.0 L Hct 29.8 L MCV 76.9 L MCH 25.8 MCHC 33.5 RDW 23.0 H Plt Count 95 L MPV 9.4 Absolute Neuts (auto) 8.7 H Total Counted Neutrophils % 78.6 Neutrophils % (Manual) Band Neutrophils % Lymphocytes % 18.0 Lymphocytes % (Manual) Monocytes % 1.4 L Monocytes % (Manual) Eosinophils % 1.7 Eosinophils % (Manual) Basophils % 0.3 Basophils % (Manual) Myelocytes % (Man) Promyelocytes % (Man) Blast Cells % (Manual) Nucleated RBC % 0 Metamyelocytes Hypochromia Toxic Granulation Platelet Estimate Platelet Comment Polychromasia Poikilocytosis Anisocytosis Microcytosis Macrocytosis Spherocytes Target Cells Tear Drop Cells Ovalocytes [place] Cells Schistocytes PT with INR INR PTT (Actin FS) Fibrinogen Puncture Site ABG pH ABG pCO2 at Pt Temp ABG pO2 at Pt Temp ABG HCO3 ABG O2 Sat (Measured) ABG O2 Content ABG Base Excess Atul Test O2 Delivery Device Oxygen Flow Rate Vent Mode Vent Rate PEEP Pressure Support Vent Sodium Potassium Chloride Carbon Dioxide Anion Gap BUN Creatinine Est GFR (CKD-EPI)AfAm Est GFR (CKD-EPI)NonAf POC Glucometer 163 141 Random Glucose Lactic Acid Calcium Phosphorus Magnesium Iron TIBC Iron Saturation Unsaturated IBC Ferritin Total Bilirubin AST ALT Alkaline Phosphatase Creatine Kinase Troponin I Total Protein Albumin Prealbumin Triglycerides Cholesterol Total LDL Cholesterol HDL Cholesterol Beta-Hydroxybutyrate Urine Color Urine Appearance Urine pH Ur Specific Carter Urine Protein Urine Glucose (UA) Urine Ketones Urine Blood Urine Nitrite Urine Bilirubin Urine Urobilinogen Ur Leukocyte Esterase Urine WBC (Auto) Urine RBC (Auto) U Epithel Cells (Auto) Urine Bacteria (Auto) Stool Occult Blood Acetone, Qual B-Hydroxybutyrate 03/22/19 03/22/19 03/22/19 05:10 05:10 07:56 WBC RBC Hgb Hct MCV MCH MCHC RDW Plt Count MPV Absolute Neuts (auto) Total Counted Neutrophils % Neutrophils % (Manual) Band Neutrophils % Lymphocytes % Lymphocytes % (Manual) Monocytes % Monocytes % (Manual) Eosinophils % Eosinophils % (Manual) Basophils % Basophils % (Manual) Myelocytes % (Man) Promyelocytes % (Man) Blast Cells % (Manual) Nucleated RBC % Metamyelocytes Hypochromia Toxic Granulation Platelet Estimate Platelet Comment Polychromasia Poikilocytosis Anisocytosis Microcytosis Macrocytosis Spherocytes Target Cells Tear Drop Cells Ovalocytes [place] Cells Schistocytes PT with INR INR PTT (Actin FS) Fibrinogen Puncture Site ABG pH ABG pCO2 at Pt Temp ABG pO2 at Pt Temp ABG HCO3 ABG O2 Sat (Measured) ABG O2 Content ABG Base Excess Atul Test O2 Delivery Device Oxygen Flow Rate Vent Mode Vent Rate PEEP Pressure Support Vent Sodium 141 Potassium 3.9 Chloride 104 Carbon Dioxide 30 Anion Gap 8 BUN 18.6 H Creatinine 0.5 L Est GFR (CKD-EPI)AfAm 131.72 Est GFR (CKD-EPI)NonAf 113.65 POC Glucometer 195 Random Glucose 156 H Lactic Acid Calcium 6.9 L* Phosphorus Magnesium 2.1 Iron TIBC Iron Saturation Unsaturated IBC Ferritin Total Bilirubin 0.4 AST 20 ALT 11 L Alkaline Phosphatase 285 H Creatine Kinase Troponin I Total Protein 4.4 L Albumin 1.2 L Prealbumin Triglycerides Cholesterol Total LDL Cholesterol HDL Cholesterol Beta-Hydroxybutyrate 0.9 Urine Color Urine Appearance Urine pH Ur Specific Carter Urine Protein Urine Glucose (UA) Urine Ketones Urine Blood Urine Nitrite Urine Bilirubin Urine Urobilinogen Ur Leukocyte Esterase Urine WBC (Auto) Urine RBC (Auto) U Epithel Cells (Auto) Urine Bacteria (Auto) Stool Occult Blood Acetone, Qual B-Hydroxybutyrate 03/22/19 03/22/19 03/22/19 10:49 14:56 17:11 WBC RBC Hgb Hct MCV MCH MCHC RDW Plt Count MPV Absolute Neuts (auto) Total Counted Neutrophils % Neutrophils % (Manual) Band Neutrophils % Lymphocytes % Lymphocytes % (Manual) Monocytes % Monocytes % (Manual) Eosinophils % Eosinophils % (Manual) Basophils % Basophils % (Manual) Myelocytes % (Man) Promyelocytes % (Man) Blast Cells % (Manual) Nucleated RBC % Metamyelocytes Hypochromia Toxic Granulation Platelet Estimate Platelet Comment Polychromasia Poikilocytosis Anisocytosis Microcytosis Macrocytosis Spherocytes Target Cells Tear Drop Cells Ovalocytes [place] Cells Schistocytes PT with INR INR PTT (Actin FS) Fibrinogen Puncture Site ABG pH ABG pCO2 at Pt Temp ABG pO2 at Pt Temp ABG HCO3 ABG O2 Sat (Measured) ABG O2 Content ABG Base Excess Atul Test O2 Delivery Device Oxygen Flow Rate Vent Mode Vent Rate PEEP Pressure Support Vent Sodium Potassium Chloride Carbon Dioxide Anion Gap BUN Creatinine Est GFR (CKD-EPI)AfAm Est GFR (CKD-EPI)NonAf POC Glucometer [phone] Random Glucose Lactic Acid Calcium Phosphorus Magnesium Iron TIBC Iron Saturation Unsaturated IBC Ferritin Total Bilirubin AST ALT Alkaline Phosphatase Creatine Kinase Troponin I Total Protein Albumin Prealbumin Triglycerides Cholesterol Total LDL Cholesterol HDL Cholesterol Beta-Hydroxybutyrate Urine Color Urine Appearance Urine pH Ur Specific Carter Urine Protein Urine Glucose (UA) Urine Ketones Urine Blood Urine Nitrite Urine Bilirubin Urine Urobilinogen Ur Leukocyte Esterase Urine WBC (Auto) Urine RBC (Auto) U Epithel Cells (Auto) Urine Bacteria (Auto) Stool Occult Blood Acetone, Qual B-Hydroxybutyrate 03/22/19 03/23/19 03/23/19 21:34 02:48 03:32 WBC RBC Hgb Hct MCV MCH MCHC RDW Plt Count MPV Absolute Neuts (auto) Total Counted Neutrophils % Neutrophils % (Manual) Band Neutrophils % Lymphocytes % Lymphocytes % (Manual) Monocytes % Monocytes % (Manual) Eosinophils % Eosinophils % (Manual) Basophils % Basophils % (Manual) Myelocytes % (Man) Promyelocytes % (Man) Blast Cells % (Manual) Nucleated RBC % Metamyelocytes Hypochromia Toxic Granulation Platelet Estimate Platelet Comment Polychromasia Poikilocytosis Anisocytosis Microcytosis Macrocytosis Spherocytes Target Cells Tear Drop Cells Ovalocytes [place] Cells Schistocytes PT with INR INR PTT (Actin FS) Fibrinogen Puncture Site ABG pH ABG pCO2 at Pt Temp ABG pO2 at Pt Temp ABG HCO3 ABG O2 Sat (Measured) ABG O2 Content ABG Base Excess Atul Test O2 Delivery Device Oxygen Flow Rate Vent Mode Vent Rate PEEP Pressure Support Vent Sodium Potassium Chloride Carbon Dioxide Anion Gap BUN Creatinine Est GFR (CKD-EPI)AfAm Est GFR (CKD-EPI)NonAf POC Glucometer [phone] Random Glucose Lactic Acid Calcium Phosphorus Magnesium Iron TIBC Iron Saturation Unsaturated IBC Ferritin Total Bilirubin AST ALT Alkaline Phosphatase Creatine Kinase Troponin I Total Protein Albumin Prealbumin Triglycerides Cholesterol Total LDL Cholesterol HDL Cholesterol Beta-Hydroxybutyrate Urine Color Urine Appearance Urine pH Ur Specific Carter Urine Protein Urine Glucose (UA) Urine Ketones Urine Blood Urine Nitrite Urine Bilirubin Urine Urobilinogen Ur Leukocyte Esterase Urine WBC (Auto) Urine RBC (Auto) U Epithel Cells (Auto) Urine Bacteria (Auto) Stool Occult Blood Acetone, Qual B-Hydroxybutyrate 03/23/19 03/23/19 03/23/19 05:10 05:10 05:10 WBC 12.9 H RBC 3.47 L Hgb 8.9 L Hct 27.2 L MCV 78.3 L MCH 25.5 L MCHC 32.6 RDW 22.8 H Plt Count 121 L D MPV 9.0 Absolute Neuts (auto) 9.9 H Total Counted Neutrophils % 77.0 Neutrophils % (Manual) Band Neutrophils % Lymphocytes % 17.9 Lymphocytes % (Manual) Monocytes % 3.3 L D Monocytes % (Manual) Eosinophils % 1.2 Eosinophils % (Manual) Basophils % 0.6 Basophils % (Manual) Myelocytes % (Man) Promyelocytes % (Man) Blast Cells % (Manual) Nucleated RBC % 0 Metamyelocytes Hypochromia Toxic Granulation Platelet Estimate Platelet Comment Polychromasia Poikilocytosis Anisocytosis Microcytosis Macrocytosis Spherocytes Target Cells Tear Drop Cells Ovalocytes [place] Cells Schistocytes PT with INR INR PTT (Actin FS) Fibrinogen Puncture Site ABG pH ABG pCO2 at Pt Temp ABG pO2 at Pt Temp ABG HCO3 ABG O2 Sat (Measured) ABG O2 Content ABG Base Excess Atul Test O2 Delivery Device Oxygen Flow Rate Vent Mode Vent Rate PEEP Pressure Support Vent Sodium 144 Potassium 3.5 Chloride 106 Carbon Dioxide 33 H Anion Gap 5 L BUN 19.3 H Creatinine 0.5 L Est GFR (CKD-EPI)AfAm 131.72 Est GFR (CKD-EPI)NonAf 113.65 POC Glucometer 26 Random Glucose 31 L* Lactic Acid Calcium 7.0 L Phosphorus 2.1 L Magnesium 2.2 Iron TIBC Iron Saturation Unsaturated IBC Ferritin Total Bilirubin 0.2 AST 21 ALT 11 L Alkaline Phosphatase 229 H Creatine Kinase Troponin I Total Protein 4.5 L Albumin 1.2 L Prealbumin Triglycerides Cholesterol Total LDL Cholesterol HDL Cholesterol Beta-Hydroxybutyrate Urine Color Urine Appearance Urine pH Ur Specific Carter Urine Protein Urine Glucose (UA) Urine Ketones Urine Blood Urine Nitrite Urine Bilirubin Urine Urobilinogen Ur Leukocyte Esterase Urine WBC (Auto) Urine RBC (Auto) U Epithel Cells (Auto) Urine Bacteria (Auto) Stool Occult Blood Acetone, Qual B-Hydroxybutyrate 03/23/19 03/23/19 03/23/19 05:45 07:44 09:05 WBC RBC Hgb Hct MCV MCH MCHC RDW Plt Count MPV Absolute Neuts (auto) Total Counted Neutrophils % Neutrophils % (Manual) Band Neutrophils % Lymphocytes % Lymphocytes % (Manual) Monocytes % Monocytes % (Manual) Eosinophils % Eosinophils % (Manual) Basophils % Basophils % (Manual) Myelocytes % (Man) Promyelocytes % (Man) Blast Cells % (Manual) Nucleated RBC % Metamyelocytes Hypochromia Toxic Granulation Platelet Estimate Platelet Comment Polychromasia Poikilocytosis Anisocytosis Microcytosis Macrocytosis Spherocytes Target Cells Tear Drop Cells Ovalocytes [place] Cells Schistocytes PT with INR INR PTT (Actin FS) Fibrinogen Puncture Site ABG pH ABG pCO2 at Pt Temp ABG pO2 at Pt Temp ABG HCO3 ABG O2 Sat (Measured) ABG O2 Content ABG Base Excess Atul Test O2 Delivery Device Oxygen Flow Rate Vent Mode Vent Rate PEEP Pressure Support Vent Sodium Potassium Chloride Carbon Dioxide Anion Gap BUN Creatinine Est GFR (CKD-EPI)AfAm Est GFR (CKD-EPI)NonAf POC Glucometer 84 [phone] Random Glucose Lactic Acid Calcium Phosphorus Magnesium Iron TIBC Iron Saturation Unsaturated IBC Ferritin Total Bilirubin AST ALT Alkaline Phosphatase Creatine Kinase Troponin I Total Protein Albumin Prealbumin Triglycerides Cholesterol Total LDL Cholesterol HDL Cholesterol Beta-Hydroxybutyrate Urine Color Urine Appearance Urine pH Ur Specific Carter Urine Protein Urine Glucose (UA) Urine Ketones Urine Blood Urine Nitrite Urine Bilirubin Urine Urobilinogen Ur Leukocyte Esterase Urine WBC (Auto) Urine RBC (Auto) U Epithel Cells (Auto) Urine Bacteria (Auto) Stool Occult Blood Acetone, Qual B-Hydroxybutyrate 03/23/19 03/23/19 03/23/19 11:25 13:44 16:30 WBC RBC Hgb Hct MCV MCH MCHC RDW Plt Count MPV Absolute Neuts (auto) Total Counted Neutrophils % Neutrophils % (Manual) Band Neutrophils % Lymphocytes % Lymphocytes % (Manual) Monocytes % Monocytes % (Manual) Eosinophils % Eosinophils % (Manual) Basophils % Basophils % (Manual) Myelocytes % (Man) Promyelocytes % (Man) Blast Cells % (Manual) Nucleated RBC % Metamyelocytes Hypochromia Toxic Granulation Platelet Estimate Platelet Comment Polychromasia Poikilocytosis Anisocytosis Microcytosis Macrocytosis Spherocytes Target Cells Tear Drop Cells Ovalocytes [place] Cells Schistocytes PT with INR INR PTT (Actin FS) Fibrinogen Puncture Site ABG pH ABG pCO2 at Pt Temp ABG pO2 at Pt Temp ABG HCO3 ABG O2 Sat (Measured) ABG O2 Content ABG Base Excess Atul Test O2 Delivery Device Oxygen Flow Rate Vent Mode Vent Rate PEEP Pressure Support Vent Sodium Potassium Chloride Carbon Dioxide Anion Gap BUN Creatinine Est GFR (CKD-EPI)AfAm Est GFR (CKD-EPI)NonAf POC Glucometer [phone] Random Glucose Lactic Acid Calcium Phosphorus Magnesium Iron TIBC Iron Saturation Unsaturated IBC Ferritin Total Bilirubin AST ALT Alkaline Phosphatase Creatine Kinase Troponin I Total Protein Albumin Prealbumin Triglycerides Cholesterol Total LDL Cholesterol HDL Cholesterol Beta-Hydroxybutyrate Urine Color Urine Appearance Urine pH Ur Specific Carter Urine Protein Urine Glucose (UA) Urine Ketones Urine Blood Urine Nitrite Urine Bilirubin Urine Urobilinogen Ur Leukocyte Esterase Urine WBC (Auto) Urine RBC (Auto) U Epithel Cells (Auto) Urine Bacteria (Auto) Stool Occult Blood Acetone, Qual B-Hydroxybutyrate 03/23/19 03/24/19 03/24/19 21:56 01:44 05:40 WBC 7.9 RBC 3.06 L Hgb 7.9 L Hct 24.2 L MCV 78.9 L MCH 25.9 MCHC 32.9 RDW 23.2 H Plt Count 95 L D MPV 8.1 Absolute Neuts (auto) 5.6 Total Counted Neutrophils % 71.4 Neutrophils % (Manual) Band Neutrophils % Lymphocytes % 20.4 Lymphocytes % (Manual) Monocytes % 4.3 Monocytes % (Manual) Eosinophils % 3.0 D Eosinophils % (Manual) Basophils % 0.9 Basophils % (Manual) Myelocytes % (Man) Promyelocytes % (Man) Blast Cells % (Manual) Nucleated RBC % 0 Metamyelocytes Hypochromia 0 Toxic Granulation Platelet Estimate Decreased Platelet Comment Polychromasia 1+ Poikilocytosis 0 Anisocytosis 1+ Microcytosis 1+ Macrocytosis 1+ Spherocytes Target Cells 2+ Tear Drop Cells Ovalocytes 1+ [place] Cells Schistocytes PT with INR INR PTT (Actin FS) Fibrinogen Puncture Site ABG pH ABG pCO2 at Pt Temp ABG pO2 at Pt Temp ABG HCO3 ABG O2 Sat (Measured) ABG O2 Content ABG Base Excess Atul Test O2 Delivery Device Oxygen Flow Rate Vent Mode Vent Rate PEEP Pressure Support Vent Sodium Potassium Chloride Carbon Dioxide Anion Gap BUN Creatinine Est GFR (CKD-EPI)AfAm Est GFR (CKD-EPI)NonAf POC Glucometer 255 120 Random Glucose Lactic Acid Calcium Phosphorus Magnesium Iron TIBC Iron Saturation Unsaturated IBC Ferritin Total Bilirubin AST ALT Alkaline Phosphatase Creatine Kinase Troponin I Total Protein Albumin Prealbumin Triglycerides Cholesterol Total LDL Cholesterol HDL Cholesterol Beta-Hydroxybutyrate Urine Color Urine Appearance Urine pH Ur Specific Carter Urine Protein Urine Glucose (UA) Urine Ketones Urine Blood Urine Nitrite Urine Bilirubin Urine Urobilinogen Ur Leukocyte Esterase Urine WBC (Auto) Urine RBC (Auto) U Epithel Cells (Auto) Urine Bacteria (Auto) Stool Occult Blood Acetone, Qual B-Hydroxybutyrate 03/24/19 03/24/19 03/24/19 05:40 06:03 11:56 WBC RBC Hgb Hct MCV MCH MCHC RDW Plt Count MPV Absolute Neuts (auto) Total Counted Neutrophils % Neutrophils % (Manual) Band Neutrophils % Lymphocytes % Lymphocytes % (Manual) Monocytes % Monocytes % (Manual) Eosinophils % Eosinophils % (Manual) Basophils % Basophils % (Manual) Myelocytes % (Man) Promyelocytes % (Man) Blast Cells % (Manual) Nucleated RBC % Metamyelocytes Hypochromia Toxic Granulation Platelet Estimate Platelet Comment Polychromasia Poikilocytosis Anisocytosis Microcytosis Macrocytosis Spherocytes Target Cells Tear Drop Cells Ovalocytes [place] Cells Schistocytes PT with INR INR PTT (Actin FS) Fibrinogen Puncture Site ABG pH ABG pCO2 at Pt Temp ABG pO2 at Pt Temp ABG HCO3 ABG O2 Sat (Measured) ABG O2 Content ABG Base Excess Atul Test O2 Delivery Device Oxygen Flow Rate Vent Mode Vent Rate PEEP Pressure Support Vent Sodium 141 Potassium 3.8 Chloride 104 Carbon Dioxide 31 Anion Gap 6 L BUN 14.5 Creatinine 0.4 L Est GFR (CKD-EPI)AfAm 141.75 Est GFR (CKD-EPI)NonAf 122.30 POC Glucometer 198 306 Random Glucose 207 H Lactic Acid Calcium 6.8 L* Phosphorus 2.0 L Magnesium 1.7 L Iron TIBC Iron Saturation Unsaturated IBC Ferritin Total Bilirubin 0.4 AST 14 L ALT 7 L Alkaline Phosphatase 170 H Creatine Kinase Troponin I Total Protein 3.9 L Albumin 1.1 L Prealbumin Triglycerides Cholesterol Total LDL Cholesterol HDL Cholesterol Beta-Hydroxybutyrate Urine Color Urine Appearance Urine pH Ur Specific Carter Urine Protein Urine Glucose (UA) Urine Ketones Urine Blood Urine Nitrite Urine Bilirubin Urine Urobilinogen Ur Leukocyte Esterase Urine WBC (Auto) Urine RBC (Auto) U Epithel Cells (Auto) Urine Bacteria (Auto) Stool Occult Blood Acetone, Qual B-Hydroxybutyrate 03/24/19 03/24/19 03/25/19 17:45 21:40 03:08 WBC RBC Hgb Hct MCV MCH MCHC RDW Plt Count MPV Absolute Neuts (auto) Total Counted Neutrophils % Neutrophils % (Manual) Band Neutrophils % Lymphocytes % Lymphocytes % (Manual) Monocytes % Monocytes % (Manual) Eosinophils % Eosinophils % (Manual) Basophils % Basophils % (Manual) Myelocytes % (Man) Promyelocytes % (Man) Blast Cells % (Manual) Nucleated RBC % Metamyelocytes Hypochromia Toxic Granulation Platelet Estimate Platelet Comment Polychromasia Poikilocytosis Anisocytosis Microcytosis Macrocytosis Spherocytes Target Cells Tear Drop Cells Ovalocytes [place] Cells Schistocytes PT with INR INR PTT (Actin FS) Fibrinogen Puncture Site ABG pH ABG pCO2 at Pt Temp ABG pO2 at Pt Temp ABG HCO3 ABG O2 Sat (Measured) ABG O2 Content ABG Base Excess Atul Test O2 Delivery Device Oxygen Flow Rate Vent Mode Vent Rate PEEP Pressure Support Vent Sodium Potassium Chloride Carbon Dioxide Anion Gap BUN Creatinine Est GFR (CKD-EPI)AfAm Est GFR (CKD-EPI)NonAf POC Glucometer [phone] Random Glucose Lactic Acid Calcium Phosphorus Magnesium Iron TIBC Iron Saturation Unsaturated IBC Ferritin Total Bilirubin AST ALT Alkaline Phosphatase Creatine Kinase Troponin I Total Protein Albumin Prealbumin Triglycerides Cholesterol Total LDL Cholesterol HDL Cholesterol Beta-Hydroxybutyrate Urine Color Urine Appearance Urine pH Ur Specific Carter Urine Protein Urine Glucose (UA) Urine Ketones Urine Blood Urine Nitrite Urine Bilirubin Urine Urobilinogen Ur Leukocyte Esterase Urine WBC (Auto) Urine RBC (Auto) U Epithel Cells (Auto) Urine Bacteria (Auto) Stool Occult Blood Acetone, Qual B-Hydroxybutyrate 03/25/19 03/25/19 03/25/19 05:30 05:30 05:32 WBC 8.6 RBC 3.42 L Hgb 8.9 L Hct 27.2 L MCV 79.4 L MCH 26.1 MCHC 32.8 RDW 23.7 H Plt Count 179 D MPV 8.2 Absolute Neuts (auto) 5.8 Total Counted Neutrophils % 67.7 Neutrophils % (Manual) Band Neutrophils % Lymphocytes % 23.2 Lymphocytes % (Manual) Monocytes % 6.0 Monocytes % (Manual) Eosinophils % 2.2 Eosinophils % (Manual) Basophils % 0.9 Basophils % (Manual) Myelocytes % (Man) Promyelocytes % (Man) Blast Cells % (Manual) Nucleated RBC % 0 Metamyelocytes Hypochromia Toxic Granulation Platelet Estimate Platelet Comment Polychromasia Poikilocytosis Anisocytosis Microcytosis Macrocytosis Spherocytes Target Cells Tear Drop Cells Ovalocytes [place] Cells Schistocytes PT with INR INR PTT (Actin FS) Fibrinogen Puncture Site ABG pH ABG pCO2 at Pt Temp ABG pO2 at Pt Temp ABG HCO3 ABG O2 Sat (Measured) ABG O2 Content ABG Base Excess Atul Test O2 Delivery Device Oxygen Flow Rate Vent Mode Vent Rate PEEP Pressure Support Vent Sodium 142 Potassium 3.5 Chloride 104 Carbon Dioxide 31 Anion Gap 7 L BUN 16.2 Creatinine 0.4 L Est GFR (CKD-EPI)AfAm 141.75 Est GFR (CKD-EPI)NonAf 122.30 POC Glucometer 118 Random Glucose 120 H Lactic Acid Calcium 7.2 L Phosphorus 2.0 L Magnesium 1.9 Iron TIBC Iron Saturation Unsaturated IBC Ferritin Total Bilirubin 0.2 AST 16 ALT 10 L Alkaline Phosphatase 184 H Creatine Kinase Troponin I Total Protein 4.6 L Albumin 1.2 L Prealbumin Triglycerides Cholesterol Total LDL Cholesterol HDL Cholesterol Beta-Hydroxybutyrate Urine Color Urine Appearance Urine pH Ur Specific Carter Urine Protein Urine Glucose (UA) Urine Ketones Urine Blood Urine Nitrite Urine Bilirubin Urine Urobilinogen Ur Leukocyte Esterase Urine WBC (Auto) Urine RBC (Auto) U Epithel Cells (Auto) Urine Bacteria (Auto) Stool Occult Blood Acetone, Qual B-Hydroxybutyrate 03/25/19 03/25/19 03/25/19 10:53 12:55 14:23 WBC RBC Hgb Hct MCV MCH MCHC RDW Plt Count MPV Absolute Neuts (auto) Total Counted Neutrophils % Neutrophils % (Manual) Band Neutrophils % Lymphocytes % Lymphocytes % (Manual) Monocytes % Monocytes % (Manual) Eosinophils % Eosinophils % (Manual) Basophils % Basophils % (Manual) Myelocytes % (Man) Promyelocytes % (Man) Blast Cells % (Manual) Nucleated RBC % Metamyelocytes Hypochromia Toxic Granulation Platelet Estimate Platelet Comment Polychromasia Poikilocytosis Anisocytosis Microcytosis Macrocytosis Spherocytes Target Cells Tear Drop Cells Ovalocytes [place] Cells Schistocytes PT with INR INR PTT (Actin FS) Fibrinogen Puncture Site ABG pH ABG pCO2 at Pt Temp ABG pO2 at Pt Temp ABG HCO3 ABG O2 Sat (Measured) ABG O2 Content ABG Base Excess Atul Test O2 Delivery Device Oxygen Flow Rate Vent Mode Vent Rate PEEP Pressure Support Vent Sodium 137 Potassium 3.7 Chloride 101 Carbon Dioxide 27 Anion Gap 9 BUN 19.9 H Creatinine 0.6 Est GFR (CKD-EPI)AfAm 124.05 Est GFR (CKD-EPI)NonAf 107.03 POC Glucometer 401 186 Random Glucose 312 H Lactic Acid Calcium 7.3 L Phosphorus Magnesium Iron TIBC Iron Saturation Unsaturated IBC Ferritin Total Bilirubin 0.3 AST 18 ALT 12 L Alkaline Phosphatase 216 H Creatine Kinase Troponin I Total Protein 5.2 L Albumin 1.4 L Prealbumin Triglycerides Cholesterol Total LDL Cholesterol HDL Cholesterol Beta-Hydroxybutyrate Urine Color Urine Appearance Urine pH Ur Specific Carter Urine Protein Urine Glucose (UA) Urine Ketones Urine Blood Urine Nitrite Urine Bilirubin Urine Urobilinogen Ur Leukocyte Esterase Urine WBC (Auto) Urine RBC (Auto) U Epithel Cells (Auto) Urine Bacteria (Auto) Stool Occult Blood Acetone, Qual B-Hydroxybutyrate 03/25/19 03/25/19 03/26/19 16:10 20:48 01:48 WBC RBC Hgb Hct MCV MCH MCHC RDW Plt Count MPV Absolute Neuts (auto) Total Counted Neutrophils % Neutrophils % (Manual) Band Neutrophils % Lymphocytes % Lymphocytes % (Manual) Monocytes % Monocytes % (Manual) Eosinophils % Eosinophils % (Manual) Basophils % Basophils % (Manual) Myelocytes % (Man) Promyelocytes % (Man) Blast Cells % (Manual) Nucleated RBC % Metamyelocytes Hypochromia Toxic Granulation Platelet Estimate Platelet Comment Polychromasia Poikilocytosis Anisocytosis Microcytosis Macrocytosis Spherocytes Target Cells Tear Drop Cells Ovalocytes [place] Cells Schistocytes PT with INR INR PTT (Actin FS) Fibrinogen Puncture Site ABG pH ABG pCO2 at Pt Temp ABG pO2 at Pt Temp ABG HCO3 ABG O2 Sat (Measured) ABG O2 Content ABG Base Excess Atul Test O2 Delivery Device Oxygen Flow Rate Vent Mode Vent Rate PEEP Pressure Support Vent Sodium Potassium Chloride Carbon Dioxide Anion Gap BUN Creatinine Est GFR (CKD-EPI)AfAm Est GFR (CKD-EPI)NonAf POC Glucometer [phone] Random Glucose Lactic Acid Calcium Phosphorus Magnesium Iron TIBC Iron Saturation Unsaturated IBC Ferritin Total Bilirubin AST ALT Alkaline Phosphatase Creatine Kinase Troponin I Total Protein Albumin Prealbumin Triglycerides Cholesterol Total LDL Cholesterol HDL Cholesterol Beta-Hydroxybutyrate Urine Color Urine Appearance Urine pH Ur Specific Carter Urine Protein Urine Glucose (UA) Urine Ketones Urine Blood Urine Nitrite Urine Bilirubin Urine Urobilinogen Ur Leukocyte Esterase Urine WBC (Auto) Urine RBC (Auto) U Epithel Cells (Auto) Urine Bacteria (Auto) Stool Occult Blood Acetone, Qual B-Hydroxybutyrate 03/26/19 03/26/19 03/26/19 05:06 06:00 06:00 WBC RBC Hgb Hct MCV MCH MCHC RDW Plt Count MPV Absolute Neuts (auto) Total Counted Neutrophils % Neutrophils % (Manual) Band Neutrophils % Lymphocytes % Lymphocytes % (Manual) Monocytes % Monocytes % (Manual) Eosinophils % Eosinophils % (Manual) Basophils % Basophils % (Manual) Myelocytes % (Man) Promyelocytes % (Man) Blast Cells % (Manual) Nucleated RBC % Metamyelocytes Hypochromia Toxic Granulation Platelet Estimate Platelet Comment Polychromasia Poikilocytosis Anisocytosis Microcytosis Macrocytosis Spherocytes Target Cells Tear Drop Cells Ovalocytes [place] Cells Schistocytes PT with INR 11.20 INR 0.95 PTT (Actin FS) 29.7 Fibrinogen Puncture Site ABG pH ABG pCO2 at Pt Temp ABG pO2 at Pt Temp ABG HCO3 ABG O2 Sat (Measured) ABG O2 Content ABG Base Excess Atul Test O2 Delivery Device Oxygen Flow Rate Vent Mode Vent Rate PEEP Pressure Support Vent Sodium 139 Potassium 3.8 Chloride 102 Carbon Dioxide 32 Anion Gap 5 L BUN 14.5 Creatinine 0.3 L Est GFR (CKD-EPI)AfAm 155.82 Est GFR (CKD-EPI)NonAf 134.44 POC Glucometer 153 Random Glucose 151 H Lactic Acid Calcium 7.1 L Phosphorus Magnesium Iron TIBC Iron Saturation Unsaturated IBC Ferritin Total Bilirubin 0.2 AST 15 ALT 9 L Alkaline Phosphatase 155 H Creatine Kinase Troponin I Total Protein 4.3 L Albumin 1.2 L Prealbumin Triglycerides Cholesterol Total LDL Cholesterol HDL Cholesterol Beta-Hydroxybutyrate Urine Color Urine Appearance Urine pH Ur Specific Carter Urine Protein Urine Glucose (UA) Urine Ketones Urine Blood Urine Nitrite Urine Bilirubin Urine Urobilinogen Ur Leukocyte Esterase Urine WBC (Auto) Urine RBC (Auto) U Epithel Cells (Auto) Urine Bacteria (Auto) Stool Occult Blood Acetone, Qual B-Hydroxybutyrate 03/26/19 03/26/19 03/26/19 06:00 06:00 10:53 WBC 8.5 RBC 2.92 L Hgb 7.6 L Hct 23.5 L MCV 80.5 MCH 26.1 MCHC 32.4 RDW 23.5 H Plt Count 231 D MPV 8.1 Absolute Neuts (auto) 5.4 Total Counted Neutrophils % 63.6 Neutrophils % (Manual) Band Neutrophils % Lymphocytes % 24.4 Lymphocytes % (Manual) Monocytes % 7.8 Monocytes % (Manual) Eosinophils % 3.2 Eosinophils % (Manual) Basophils % 1.0 Basophils % (Manual) Myelocytes % (Man) Promyelocytes % (Man) Blast Cells % (Manual) Nucleated RBC % 0 Metamyelocytes Hypochromia Toxic Granulation Platelet Estimate Platelet Comment Polychromasia Poikilocytosis Anisocytosis Microcytosis Macrocytosis Spherocytes Target Cells Tear Drop Cells Ovalocytes [place] Cells Schistocytes PT with INR INR PTT (Actin FS) Fibrinogen Puncture Site ABG pH ABG pCO2 at Pt Temp ABG pO2 at Pt Temp ABG HCO3 ABG O2 Sat (Measured) ABG O2 Content ABG Base Excess Atul Test O2 Delivery Device Oxygen Flow Rate Vent Mode Vent Rate PEEP Pressure Support Vent Sodium Potassium Chloride Carbon Dioxide Anion Gap BUN Creatinine Est GFR (CKD-EPI)AfAm Est GFR (CKD-EPI)NonAf POC Glucometer 356 Random Glucose Lactic Acid 2.4 H* Calcium Phosphorus Magnesium Iron TIBC Iron Saturation Unsaturated IBC Ferritin Total Bilirubin AST ALT Alkaline Phosphatase Creatine Kinase Troponin I Total Protein Albumin Prealbumin Triglycerides Cholesterol Total LDL Cholesterol HDL Cholesterol Beta-Hydroxybutyrate Urine Color Urine Appearance Urine pH Ur Specific Carter Urine Protein Urine Glucose (UA) Urine Ketones Urine Blood Urine Nitrite Urine Bilirubin Urine Urobilinogen Ur Leukocyte Esterase Urine WBC (Auto) Urine RBC (Auto) U Epithel Cells (Auto) Urine Bacteria (Auto) Stool Occult Blood Acetone, Qual B-Hydroxybutyrate 0903/26/19 03/26/19 13:52 18:35 20:40 WBC 8.7 RBC 3.44 L Hgb 9.2 L Hct 28.1 L D MCV 81.7 MCH 26.7 MCHC 32.6 RDW 22.3 H Plt Count 262 MPV 8.1 Absolute Neuts (auto) 5.7 Total Counted Neutrophils % 65.2 Neutrophils % (Manual) Band Neutrophils % Lymphocytes % 20.6 Lymphocytes % (Manual) Monocytes % 9.8 Monocytes % (Manual) Eosinophils % 2.6 Eosinophils % (Manual) Basophils % 1.8 Basophils % (Manual) Myelocytes % (Man) Promyelocytes % (Man) Blast Cells % (Manual) Nucleated RBC % 0 Metamyelocytes Hypochromia Toxic Granulation Platelet Estimate Platelet Comment Polychromasia Poikilocytosis Anisocytosis Microcytosis Macrocytosis Spherocytes Target Cells Tear Drop Cells Ovalocytes [place] Cells Schistocytes PT with INR INR PTT (Actin FS) Fibrinogen Puncture Site ABG pH ABG pCO2 at Pt Temp ABG pO2 at Pt Temp ABG HCO3 ABG O2 Sat (Measured) ABG O2 Content ABG Base Excess Atul Test O2 Delivery Device Oxygen Flow Rate Vent Mode Vent Rate PEEP Pressure Support Vent Sodium Potassium Chloride Carbon Dioxide Anion Gap BUN Creatinine Est GFR (CKD-EPI)AfAm Est GFR (CKD-EPI)NonAf POC Glucometer 347 239 Random Glucose Lactic Acid Calcium Phosphorus Magnesium Iron TIBC Iron Saturation Unsaturated IBC Ferritin Total Bilirubin AST ALT Alkaline Phosphatase Creatine Kinase Troponin I Total Protein Albumin Prealbumin Triglycerides Cholesterol Total LDL Cholesterol HDL Cholesterol Beta-Hydroxybutyrate Urine Color Urine Appearance Urine pH Ur Specific Carter Urine Protein Urine Glucose (UA) Urine Ketones Urine Blood Urine Nitrite Urine Bilirubin Urine Urobilinogen Ur Leukocyte Esterase Urine WBC (Auto) Urine RBC (Auto) U Epithel Cells (Auto) Urine Bacteria (Auto) Stool Occult Blood Acetone, Qual B-Hydroxybutyrate 03/26/19 03/27/19 03/27/19 22:42 02:18 06:00 WBC 7.1 RBC 3.22 L Hgb 8.8 L Hct 26.3 L MCV 81.6 MCH 27.2 MCHC 33.3 RDW 22.2 H Plt Count 269 MPV 7.8 Absolute Neuts (auto) 4.3 Total Counted Neutrophils % 60.6 Neutrophils % (Manual) Band Neutrophils % Lymphocytes % 22.8 Lymphocytes % (Manual) Monocytes % 12.0 H Monocytes % (Manual) Eosinophils % 3.9 Eosinophils % (Manual) Basophils % 0.7 Basophils % (Manual) Myelocytes % (Man) Promyelocytes % (Man) Blast Cells % (Manual) Nucleated RBC % 0 Metamyelocytes Hypochromia Toxic Granulation Platelet Estimate Adequate Platelet Comment Giant platelets Polychromasia Poikilocytosis 1+ Anisocytosis 2+ Microcytosis 1+ Macrocytosis Spherocytes 1+ Target Cells 1+ Tear Drop Cells 1+ Ovalocytes [place] Cells Schistocytes PT with INR INR PTT (Actin FS) Fibrinogen Puncture Site ABG pH ABG pCO2 at Pt Temp ABG pO2 at Pt Temp ABG HCO3 ABG O2 Sat (Measured) ABG O2 Content ABG Base Excess Atul Test O2 Delivery Device Oxygen Flow Rate Vent Mode Vent Rate PEEP Pressure Support Vent Sodium Potassium Chloride Carbon Dioxide Anion Gap BUN Creatinine Est GFR (CKD-EPI)AfAm Est GFR (CKD-EPI)NonAf POC Glucometer 122 173 Random Glucose Lactic Acid Calcium Phosphorus Magnesium Iron TIBC Iron Saturation Unsaturated IBC Ferritin Total Bilirubin AST ALT Alkaline Phosphatase Creatine Kinase Troponin I Total Protein Albumin Prealbumin Triglycerides Cholesterol Total LDL Cholesterol HDL Cholesterol Beta-Hydroxybutyrate Urine Color Urine Appearance Urine pH Ur Specific Carter Urine Protein Urine Glucose (UA) Urine Ketones Urine Blood Urine Nitrite Urine Bilirubin Urine Urobilinogen Ur Leukocyte Esterase Urine WBC (Auto) Urine RBC (Auto) U Epithel Cells (Auto) Urine Bacteria (Auto) Stool Occult Blood Acetone, Qual B-Hydroxybutyrate 03/27/19 03/27/19 03/27/19 06:00 06:43 11:10 WBC RBC Hgb Hct MCV MCH MCHC RDW Plt Count MPV Absolute Neuts (auto) Total Counted Neutrophils % Neutrophils % (Manual) Band Neutrophils % Lymphocytes % Lymphocytes % (Manual) Monocytes % Monocytes % (Manual) Eosinophils % Eosinophils % (Manual) Basophils % Basophils % (Manual) Myelocytes % (Man) Promyelocytes % (Man) Blast Cells % (Manual) Nucleated RBC % Metamyelocytes Hypochromia Toxic Granulation Platelet Estimate Platelet Comment Polychromasia Poikilocytosis Anisocytosis Microcytosis Macrocytosis Spherocytes Target Cells Tear Drop Cells Ovalocytes [place] Cells Schistocytes PT with INR INR PTT (Actin FS) Fibrinogen Puncture Site ABG pH ABG pCO2 at Pt Temp ABG pO2 at Pt Temp ABG HCO3 ABG O2 Sat (Measured) ABG O2 Content ABG Base Excess Atul Test O2 Delivery Device Oxygen Flow Rate Vent Mode Vent Rate PEEP Pressure Support Vent Sodium 139 Potassium 3.8 Chloride 102 Carbon Dioxide 31 Anion Gap 5 L BUN 16.5 Creatinine 0.3 L Est GFR (CKD-EPI)AfAm 155.82 Est GFR (CKD-EPI)NonAf 134.44 POC Glucometer 311 254 Random Glucose 260 H Lactic Acid Calcium 7.3 L Phosphorus 1.2 L Magnesium 1.8 Iron TIBC Iron Saturation Unsaturated IBC Ferritin Total Bilirubin 0.2 AST 19 ALT 10 L Alkaline Phosphatase 157 H Creatine Kinase Troponin I Total Protein 4.5 L Albumin 1.2 L Prealbumin Triglycerides Cholesterol Total LDL Cholesterol HDL Cholesterol Beta-Hydroxybutyrate Urine Color Urine Appearance Urine pH Ur Specific Carter Urine Protein Urine Glucose (UA) Urine Ketones Urine Blood Urine Nitrite Urine Bilirubin Urine Urobilinogen Ur Leukocyte Esterase Urine WBC (Auto) Urine RBC (Auto) U Epithel Cells (Auto) Urine Bacteria (Auto) Stool Occult Blood Acetone, Qual B-Hydroxybutyrate 03/27/19 03/27/19 03/27/19 14:16 18:17 21:18 WBC RBC Hgb Hct MCV MCH MCHC RDW Plt Count MPV Absolute Neuts (auto) Total Counted Neutrophils % Neutrophils % (Manual) Band Neutrophils % Lymphocytes % Lymphocytes % (Manual) Monocytes % Monocytes % (Manual) Eosinophils % Eosinophils % (Manual) Basophils % Basophils % (Manual) Myelocytes % (Man) Promyelocytes % (Man) Blast Cells % (Manual) Nucleated RBC % Metamyelocytes Hypochromia Toxic Granulation Platelet Estimate Platelet Comment Polychromasia Poikilocytosis Anisocytosis Microcytosis Macrocytosis Spherocytes Target Cells Tear Drop Cells Ovalocytes [place] Cells Schistocytes PT with INR INR PTT (Actin FS) Fibrinogen Puncture Site ABG pH ABG pCO2 at Pt Temp ABG pO2 at Pt Temp ABG HCO3 ABG O2 Sat (Measured) ABG O2 Content ABG Base Excess Atul Test O2 Delivery Device Oxygen Flow Rate Vent Mode Vent Rate PEEP Pressure Support Vent Sodium Potassium Chloride Carbon Dioxide Anion Gap BUN Creatinine Est GFR (CKD-EPI)AfAm Est GFR (CKD-EPI)NonAf POC Glucometer [phone] Random Glucose Lactic Acid Calcium Phosphorus Magnesium Iron TIBC Iron Saturation Unsaturated IBC Ferritin Total Bilirubin AST ALT Alkaline Phosphatase Creatine Kinase Troponin I Total Protein Albumin Prealbumin Triglycerides Cholesterol Total LDL Cholesterol HDL Cholesterol Beta-Hydroxybutyrate Urine Color Urine Appearance Urine pH Ur Specific Carter Urine Protein Urine Glucose (UA) Urine Ketones Urine Blood Urine Nitrite Urine Bilirubin Urine Urobilinogen Ur Leukocyte Esterase Urine WBC (Auto) Urine RBC (Auto) U Epithel Cells (Auto) Urine Bacteria (Auto) Stool Occult Blood Acetone, Qual B-Hydroxybutyrate 03/28/19 03/28/19 03/28/19 03:32 05:50 05:50 WBC 7.5 RBC 3.28 L Hgb 8.8 L Hct 27.3 L MCV 83.1 MCH 26.9 MCHC 32.4 RDW 22.9 H Plt Count 409 D MPV 7.8 Absolute Neuts (auto) 4.1 Total Counted Neutrophils % 54.9 Neutrophils % (Manual) Band Neutrophils % Lymphocytes % 26.7 Lymphocytes % (Manual) Monocytes % 13.0 H Monocytes % (Manual) Eosinophils % 3.9 Eosinophils % (Manual) Basophils % 1.5 Basophils % (Manual) Myelocytes % (Man) Promyelocytes % (Man) Blast Cells % (Manual) Nucleated RBC % 0 Metamyelocytes Hypochromia Toxic Granulation Platelet Estimate Platelet Comment Polychromasia Poikilocytosis Anisocytosis Microcytosis Macrocytosis Spherocytes Target Cells Tear Drop Cells Ovalocytes [place] Cells Schistocytes PT with INR INR PTT (Actin FS) Fibrinogen Puncture Site ABG pH ABG pCO2 at Pt Temp ABG pO2 at Pt Temp ABG HCO3 ABG O2 Sat (Measured) ABG O2 Content ABG Base Excess Atul Test O2 Delivery Device Oxygen Flow Rate Vent Mode Vent Rate PEEP Pressure Support Vent Sodium 141 Potassium 3.8 Chloride 102 Carbon Dioxide 33 H Anion Gap 6 L BUN 13.4 Creatinine 0.4 L Est GFR (CKD-EPI)AfAm 141.75 Est GFR (CKD-EPI)NonAf 122.30 POC Glucometer 218 Random Glucose 251 H Lactic Acid Calcium 7.6 L Phosphorus 1.9 L Magnesium 2.0 Iron TIBC Iron Saturation Unsaturated IBC Ferritin Total Bilirubin 0.2 AST 25 ALT 13 Alkaline Phosphatase 163 H Creatine Kinase Troponin I Total Protein 4.9 L Albumin 1.4 L Prealbumin Triglycerides Cholesterol Total LDL Cholesterol HDL Cholesterol Beta-Hydroxybutyrate Urine Color Urine Appearance Urine pH Ur Specific Carter Urine Protein Urine Glucose (UA) Urine Ketones Urine Blood Urine Nitrite Urine Bilirubin Urine Urobilinogen Ur Leukocyte Esterase Urine WBC (Auto) Urine RBC (Auto) U Epithel Cells (Auto) Urine Bacteria (Auto) Stool Occult Blood Acetone, Qual B-Hydroxybutyrate 03/28/19 03/28/19 03/28/19 06:22 10:07 10:59 WBC RBC Hgb Hct MCV MCH MCHC RDW Plt Count MPV Absolute Neuts (auto) Total Counted Neutrophils % Neutrophils % (Manual) Band Neutrophils % Lymphocytes % Lymphocytes % (Manual) Monocytes % Monocytes % (Manual) Eosinophils % Eosinophils % (Manual) Basophils % Basophils % (Manual) Myelocytes % (Man) Promyelocytes % (Man) Blast Cells % (Manual) Nucleated RBC % Metamyelocytes Hypochromia Toxic Granulation Platelet Estimate Platelet Comment Polychromasia Poikilocytosis Anisocytosis Microcytosis Macrocytosis Spherocytes Target Cells Tear Drop Cells Ovalocytes [place] Cells Schistocytes PT with INR INR PTT (Actin FS) Fibrinogen Puncture Site ABG pH ABG pCO2 at Pt Temp ABG pO2 at Pt Temp ABG HCO3 ABG O2 Sat (Measured) ABG O2 Content ABG Base Excess Atul Test O2 Delivery Device Oxygen Flow Rate Vent Mode Vent Rate PEEP Pressure Support Vent Sodium Potassium Chloride Carbon Dioxide Anion Gap BUN Creatinine Est GFR (CKD-EPI)AfAm Est GFR (CKD-EPI)NonAf POC Glucometer 222 136 Random Glucose Lactic Acid Calcium Phosphorus Magnesium Iron TIBC Iron Saturation Unsaturated IBC Ferritin Total Bilirubin AST ALT Alkaline Phosphatase Creatine Kinase Troponin I Total Protein Albumin Prealbumin Triglycerides Cholesterol Total LDL Cholesterol HDL Cholesterol Beta-Hydroxybutyrate Urine Color Yellow Urine Appearance Clear Urine pH 6.0 Ur Specific Carter 1.029 Urine Protein Trace Urine Glucose (UA) Negative Urine Ketones Trace Urine Blood Nht Urine Nitrite Negative Urine Bilirubin Negative Urine Urobilinogen 0.2 Ur Leukocyte Esterase Negative Urine WBC (Auto) #forced Urine RBC (Auto) U Epithel Cells (Auto) Urine Bacteria (Auto) Stool Occult Blood Acetone, Qual B-Hydroxybutyrate 03/28/19 03/28/19 03/28/19 14:56 14:58 18:18 WBC RBC Hgb Hct MCV MCH MCHC RDW Plt Count MPV Absolute Neuts (auto) Total Counted Neutrophils % Neutrophils % (Manual) Band Neutrophils % Lymphocytes % Lymphocytes % (Manual) Monocytes % Monocytes % (Manual) Eosinophils % Eosinophils % (Manual) Basophils % Basophils % (Manual) Myelocytes % (Man) Promyelocytes % (Man) Blast Cells % (Manual) Nucleated RBC % Metamyelocytes Hypochromia Toxic Granulation Platelet Estimate Platelet Comment Polychromasia Poikilocytosis Anisocytosis Microcytosis Macrocytosis Spherocytes Target Cells Tear Drop Cells Ovalocytes [place] Cells Schistocytes PT with INR INR PTT (Actin FS) Fibrinogen Puncture Site ABG pH ABG pCO2 at Pt Temp ABG pO2 at Pt Temp ABG HCO3 ABG O2 Sat (Measured) ABG O2 Content ABG Base Excess Atul Test O2 Delivery Device Oxygen Flow Rate Vent Mode Vent Rate PEEP Pressure Support Vent Sodium Potassium Chloride Carbon Dioxide Anion Gap BUN Creatinine Est GFR (CKD-EPI)AfAm Est GFR (CKD-EPI)NonAf POC Glucometer [phone] Random Glucose Lactic Acid Calcium Phosphorus Magnesium Iron TIBC Iron Saturation Unsaturated IBC Ferritin Total Bilirubin AST ALT Alkaline Phosphatase Creatine Kinase Troponin I Total Protein Albumin Prealbumin Triglycerides Cholesterol Total LDL Cholesterol HDL Cholesterol Beta-Hydroxybutyrate Urine Color Urine Appearance Urine pH Ur Specific Carter Urine Protein Urine Glucose (UA) Urine Ketones Urine Blood Urine Nitrite Urine Bilirubin Urine Urobilinogen Ur Leukocyte Esterase Urine WBC (Auto) Urine RBC (Auto) U Epithel Cells (Auto) Urine Bacteria (Auto) Stool Occult Blood Acetone, Qual B-Hydroxybutyrate 03/28/19 03/28/19 03/29/19 21:40 23:04 01:34 WBC RBC Hgb Hct MCV MCH MCHC RDW Plt Count MPV Absolute Neuts (auto) Total Counted Neutrophils % Neutrophils % (Manual) Band Neutrophils % Lymphocytes % Lymphocytes % (Manual) Monocytes % Monocytes % (Manual) Eosinophils % Eosinophils % (Manual) Basophils % Basophils % (Manual) Myelocytes % (Man) Promyelocytes % (Man) Blast Cells % (Manual) Nucleated RBC % Metamyelocytes Hypochromia Toxic Granulation Platelet Estimate Platelet Comment Polychromasia Poikilocytosis Anisocytosis Microcytosis Macrocytosis Spherocytes Target Cells Tear Drop Cells Ovalocytes [place] Cells Schistocytes PT with INR INR PTT (Actin FS) Fibrinogen Puncture Site ABG pH ABG pCO2 at Pt Temp ABG pO2 at Pt Temp ABG HCO3 ABG O2 Sat (Measured) ABG O2 Content ABG Base Excess Atul Test O2 Delivery Device Oxygen Flow Rate Vent Mode Vent Rate PEEP Pressure Support Vent Sodium Potassium Chloride Carbon Dioxide Anion Gap BUN Creatinine Est GFR (CKD-EPI)AfAm Est GFR (CKD-EPI)NonAf POC Glucometer 76 [phone] Random Glucose Lactic Acid Calcium Phosphorus Magnesium Iron TIBC Iron Saturation Unsaturated IBC Ferritin Total Bilirubin AST ALT Alkaline Phosphatase Creatine Kinase Troponin I Total Protein Albumin Prealbumin Triglycerides Cholesterol Total LDL Cholesterol HDL Cholesterol Beta-Hydroxybutyrate Urine Color Urine Appearance Urine pH Ur Specific Carter Urine Protein Urine Glucose (UA) Urine Ketones Urine Blood Urine Nitrite Urine Bilirubin Urine Urobilinogen Ur Leukocyte Esterase Urine WBC (Auto) Urine RBC (Auto) U Epithel Cells (Auto) Urine Bacteria (Auto) Stool Occult Blood Acetone, Qual B-Hydroxybutyrate 03/29/19 03/29/19 03/29/19 05:08 06:00 06:00 WBC 8.4 RBC 3.08 L Hgb 8.5 L Hct 25.6 L MCV 83.2 MCH 27.8 MCHC 33.4 RDW 23.7 H Plt Count 511 H D MPV 7.6 Absolute Neuts (auto) Total Counted Neutrophils % Neutrophils % (Manual) Band Neutrophils % Lymphocytes % Lymphocytes % (Manual) Monocytes % Monocytes % (Manual) Eosinophils % Eosinophils % (Manual) Basophils % Basophils % (Manual) Myelocytes % (Man) Promyelocytes % (Man) Blast Cells % (Manual) Nucleated RBC % Metamyelocytes Hypochromia Toxic Granulation Platelet Estimate Platelet Comment Polychromasia Poikilocytosis Anisocytosis Microcytosis Macrocytosis Spherocytes Target Cells Tear Drop Cells Ovalocytes [place] Cells Schistocytes PT with INR INR PTT (Actin FS) Fibrinogen Puncture Site ABG pH ABG pCO2 at Pt Temp ABG pO2 at Pt Temp ABG HCO3 ABG O2 Sat (Measured) ABG O2 Content ABG Base Excess Atul Test O2 Delivery Device Oxygen Flow Rate Vent Mode Vent Rate PEEP Pressure Support Vent Sodium 140 Potassium 3.9 Chloride 99 Carbon Dioxide 35 H Anion Gap 6 L BUN 16.3 Creatinine 0.4 L Est GFR (CKD-EPI)AfAm 141.75 Est GFR (CKD-EPI)NonAf 122.30 POC Glucometer 150 Random Glucose 264 H Lactic Acid Calcium 7.4 L Phosphorus 1.9 L Magnesium 2.1 Iron TIBC Iron Saturation Unsaturated IBC Ferritin Total Bilirubin 0.2 AST 25 ALT 12 L Alkaline Phosphatase 156 H Creatine Kinase Troponin I Total Protein 5.2 L Albumin 1.5 L Prealbumin Triglycerides Cholesterol Total LDL Cholesterol HDL Cholesterol Beta-Hydroxybutyrate Urine Color Urine Appearance Urine pH Ur Specific Carter Urine Protein Urine Glucose (UA) Urine Ketones Urine Blood Urine Nitrite Urine Bilirubin Urine Urobilinogen Ur Leukocyte Esterase Urine WBC (Auto) Urine RBC (Auto) U Epithel Cells (Auto) Urine Bacteria (Auto) Stool Occult Blood Acetone, Qual B-Hydroxybutyrate 03/29/19 03/29/19 03/29/19 10:32 10:34 14:03 WBC RBC Hgb Hct MCV MCH MCHC RDW Plt Count MPV Absolute Neuts (auto) Total Counted Neutrophils % Neutrophils % (Manual) Band Neutrophils % Lymphocytes % Lymphocytes % (Manual) Monocytes % Monocytes % (Manual) Eosinophils % Eosinophils % (Manual) Basophils % Basophils % (Manual) Myelocytes % (Man) Promyelocytes % (Man) Blast Cells % (Manual) Nucleated RBC % Metamyelocytes Hypochromia Toxic Granulation Platelet Estimate Platelet Comment Polychromasia Poikilocytosis Anisocytosis Microcytosis Macrocytosis Spherocytes Target Cells Tear Drop Cells Ovalocytes [place] Cells Schistocytes PT with INR INR PTT (Actin FS) Fibrinogen Puncture Site ABG pH ABG pCO2 at Pt Temp ABG pO2 at Pt Temp ABG HCO3 ABG O2 Sat (Measured) ABG O2 Content ABG Base Excess Atul Test O2 Delivery Device Oxygen Flow Rate Vent Mode Vent Rate PEEP Pressure Support Vent Sodium Potassium Chloride Carbon Dioxide Anion Gap BUN Creatinine Est GFR (CKD-EPI)AfAm Est GFR (CKD-EPI)NonAf POC Glucometer [phone] Random Glucose Lactic Acid Calcium Phosphorus Magnesium Iron TIBC Iron Saturation Unsaturated IBC Ferritin Total Bilirubin AST ALT Alkaline Phosphatase Creatine Kinase Troponin I Total Protein Albumin Prealbumin Triglycerides Cholesterol Total LDL Cholesterol HDL Cholesterol Beta-Hydroxybutyrate Urine Color Urine Appearance Urine pH Ur Specific Carter Urine Protein Urine Glucose (UA) Urine Ketones Urine Blood Urine Nitrite Urine Bilirubin Urine Urobilinogen Ur Leukocyte Esterase Urine WBC (Auto) Urine RBC (Auto) U Epithel Cells (Auto) Urine Bacteria (Auto) Stool Occult Blood Acetone, Qual B-Hydroxybutyrate 03/29/19 03/29/19 03/29/19 18:00 19:41 21:54 WBC RBC Hgb Hct MCV MCH MCHC RDW Plt Count MPV Absolute Neuts (auto) Total Counted Neutrophils % Neutrophils % (Manual) Band Neutrophils % Lymphocytes % Lymphocytes % (Manual) Monocytes % Monocytes % (Manual) Eosinophils % Eosinophils % (Manual) Basophils % Basophils % (Manual) Myelocytes % (Man) Promyelocytes % (Man) Blast Cells % (Manual) Nucleated RBC % Metamyelocytes Hypochromia Toxic Granulation Platelet Estimate Platelet Comment Polychromasia Poikilocytosis Anisocytosis Microcytosis Macrocytosis Spherocytes Target Cells Tear Drop Cells Ovalocytes [place] Cells Schistocytes PT with INR INR PTT (Actin FS) Fibrinogen Puncture Site ABG pH ABG pCO2 at Pt Temp ABG pO2 at Pt Temp ABG HCO3 ABG O2 Sat (Measured) ABG O2 Content ABG Base Excess Atul Test O2 Delivery Device Oxygen Flow Rate Vent Mode Vent Rate PEEP Pressure Support Vent Sodium Potassium Chloride Carbon Dioxide Anion Gap BUN Creatinine Est GFR (CKD-EPI)AfAm Est GFR (CKD-EPI)NonAf POC Glucometer 70 [phone] Random Glucose Lactic Acid Calcium Phosphorus Magnesium Iron TIBC Iron Saturation Unsaturated IBC Ferritin Total Bilirubin AST ALT Alkaline Phosphatase Creatine Kinase Troponin I Total Protein Albumin Prealbumin Triglycerides Cholesterol Total LDL Cholesterol HDL Cholesterol Beta-Hydroxybutyrate Urine Color Urine Appearance Urine pH Ur Specific Carter Urine Protein Urine Glucose (UA) Urine Ketones Urine Blood Urine Nitrite Urine Bilirubin Urine Urobilinogen Ur Leukocyte Esterase Urine WBC (Auto) Urine RBC (Auto) U Epithel Cells (Auto) Urine Bacteria (Auto) Stool Occult Blood Acetone, Qual B-Hydroxybutyrate 03/30/19 03/30/19 03/30/19 01:39 06:06 06:39 WBC RBC Hgb Hct MCV MCH MCHC RDW Plt Count MPV Absolute Neuts (auto) Total Counted Neutrophils % Neutrophils % (Manual) Band Neutrophils % Lymphocytes % Lymphocytes % (Manual) Monocytes % Monocytes % (Manual) Eosinophils % Eosinophils % (Manual) Basophils % Basophils % (Manual) Myelocytes % (Man) Promyelocytes % (Man) Blast Cells % (Manual) Nucleated RBC % Metamyelocytes Hypochromia Toxic Granulation Platelet Estimate Platelet Comment Polychromasia Poikilocytosis Anisocytosis Microcytosis Macrocytosis Spherocytes Target Cells Tear Drop Cells Ovalocytes [place] Cells Schistocytes PT with INR INR PTT (Actin FS) Fibrinogen Puncture Site ABG pH ABG pCO2 at Pt Temp ABG pO2 at Pt Temp ABG HCO3 ABG O2 Sat (Measured) ABG O2 Content ABG Base Excess Atul Test O2 Delivery Device Oxygen Flow Rate Vent Mode Vent Rate PEEP Pressure Support Vent Sodium Potassium Chloride Carbon Dioxide Anion Gap BUN Creatinine Est GFR (CKD-EPI)AfAm Est GFR (CKD-EPI)NonAf POC Glucometer [phone] Random Glucose Lactic Acid Calcium Phosphorus Magnesium Iron TIBC Iron Saturation Unsaturated IBC Ferritin Total Bilirubin AST ALT Alkaline Phosphatase Creatine Kinase Troponin I Total Protein Albumin Prealbumin Triglycerides Cholesterol Total LDL Cholesterol HDL Cholesterol Beta-Hydroxybutyrate Urine Color Urine Appearance Urine pH Ur Specific Carter Urine Protein Urine Glucose (UA) Urine Ketones Urine Blood Urine Nitrite Urine Bilirubin Urine Urobilinogen Ur Leukocyte Esterase Urine WBC (Auto) Urine RBC (Auto) U Epithel Cells (Auto) Urine Bacteria (Auto) Stool Occult Blood Acetone, Qual B-Hydroxybutyrate 03/30/19 03/30/19 03/30/19 08:50 08:50 10:29 WBC Top Waddy RBC Top Waddy Hgb Top Waddy Hct Top Waddy MCV Top Waddy MCH Top Waddy MCHC Top Waddy RDW Top Waddy Plt Count Top Waddy MPV Top Waddy Absolute Neuts (auto) Top Waddy Total Counted Neutrophils % Top [place]addy Neutrophils % (Manual) Band Neutrophils % Lymphocytes % Top [place]addy Lymphocytes % (Manual) Monocytes % [place] Monocytes % (Manual) Eosinophils % [place] Eosinophils % (Manual) Basophils % [place] Basophils % (Manual) Myelocytes % (Man) Promyelocytes % (Man) Blast Cells % (Manual) Nucleated RBC % [place] Metamyelocytes Hypochromia Toxic Granulation Platelet Estimate Platelet Comment Polychromasia Poikilocytosis Anisocytosis Microcytosis Macrocytosis Spherocytes Target Cells Tear Drop Cells Ovalocytes [place] Cells Schistocytes PT with INR INR PTT (Actin FS) Fibrinogen Puncture Site ABG pH ABG pCO2 at Pt Temp ABG pO2 at Pt Temp ABG HCO3 ABG O2 Sat (Measured) ABG O2 Content ABG Base Excess Atul Test O2 Delivery Device Oxygen Flow Rate Vent Mode Vent Rate PEEP Pressure Support Vent Sodium 147 H Potassium 3.5 Chloride 105 Carbon Dioxide 34 H Anion Gap 7 L BUN 17.6 Creatinine 0.3 L Est GFR (CKD-EPI)AfAm 155.82 Est GFR (CKD-EPI)NonAf 134.44 POC Glucometer 222 Random Glucose 99 Lactic Acid Calcium 7.9 L Phosphorus 2.5 Magnesium 2.2 Iron TIBC Iron Saturation Unsaturated IBC Ferritin Total Bilirubin 0.2 AST 21 ALT 11 L Alkaline Phosphatase 137 H Creatine Kinase Troponin I Total Protein 5.2 L Albumin 1.5 L Prealbumin Triglycerides Cholesterol Total LDL Cholesterol HDL Cholesterol Beta-Hydroxybutyrate Urine Color Urine Appearance Urine pH Ur Specific Carter Urine Protein Urine Glucose (UA) Urine Ketones Urine Blood Urine Nitrite Urine Bilirubin Urine Urobilinogen Ur Leukocyte Esterase Urine WBC (Auto) Urine RBC (Auto) U Epithel Cells (Auto) Urine Bacteria (Auto) Stool Occult Blood Acetone, Qual B-Hydroxybutyrate 03/30/19 03/30/19 03/30/19 14:32 18:21 21:53 WBC RBC Hgb Hct MCV MCH MCHC RDW Plt Count MPV Absolute Neuts (auto) Total Counted Neutrophils % Neutrophils % (Manual) Band Neutrophils % Lymphocytes % Lymphocytes % (Manual) Monocytes % Monocytes % (Manual) Eosinophils % Eosinophils % (Manual) Basophils % Basophils % (Manual) Myelocytes % (Man) Promyelocytes % (Man) Blast Cells % (Manual) Nucleated RBC % Metamyelocytes Hypochromia Toxic Granulation Platelet Estimate Platelet Comment Polychromasia Poikilocytosis Anisocytosis Microcytosis Macrocytosis Spherocytes Target Cells Tear Drop Cells Ovalocytes [place] Cells Schistocytes PT with INR INR PTT (Actin FS) Fibrinogen Puncture Site ABG pH ABG pCO2 at Pt Temp ABG pO2 at Pt Temp ABG HCO3 ABG O2 Sat (Measured) ABG O2 Content ABG Base Excess Atul Test O2 Delivery Device Oxygen Flow Rate Vent Mode Vent Rate PEEP Pressure Support Vent Sodium Potassium Chloride Carbon Dioxide Anion Gap BUN Creatinine Est GFR (CKD-EPI)AfAm Est GFR (CKD-EPI)NonAf POC Glucometer [phone] Random Glucose Lactic Acid Calcium Phosphorus Magnesium Iron TIBC Iron Saturation Unsaturated IBC Ferritin Total Bilirubin AST ALT Alkaline Phosphatase Creatine Kinase Troponin I Total Protein Albumin Prealbumin Triglycerides Cholesterol Total LDL Cholesterol HDL Cholesterol Beta-Hydroxybutyrate Urine Color Urine Appearance Urine pH Ur Specific [place] Urine Protein Urine Glucose (UA) Urine Ketones Urine Blood Urine Nitrite Urine Bilirubin Urine Urobilinogen Ur Leukocyte Esterase Urine WBC (Auto) Urine RBC (Auto) U Epithel Cells (Auto) Urine Bacteria (Auto) Stool Occult Blood Acetone, Qual B-Hydroxybutyrate 03/31/19 03/31/19 03/31/19 02:50 06:00 06:00 WBC 7.7 RBC 2.58 L Hgb 7.1 L Hct 22.0 L MCV 85.0 MCH 27.4 MCHC 32.3 RDW 24.3 H Plt Count 540 H MPV 7.7 Absolute Neuts (auto) 6.0 Total Counted Neutrophils % 77.6 D Neutrophils % (Manual) Band Neutrophils % Lymphocytes % 12.9 D Lymphocytes % (Manual) Monocytes % 7.1 Monocytes % (Manual) Eosinophils % 0.6 D Eosinophils % (Manual) Basophils % 1.8 Basophils % (Manual) Myelocytes % (Man) Promyelocytes % (Man) Blast Cells % (Manual) Nucleated RBC % 0 Metamyelocytes Hypochromia Toxic Granulation Platelet Estimate Platelet Comment Polychromasia Poikilocytosis Anisocytosis Microcytosis Macrocytosis Spherocytes Target Cells Tear Drop Cells Ovalocytes [place] Cells Schistocytes PT with INR INR PTT (Actin FS) Fibrinogen Puncture Site ABG pH ABG pCO2 at Pt Temp ABG pO2 at Pt Temp ABG HCO3 ABG O2 Sat (Measured) ABG O2 Content ABG Base Excess Atul Test O2 Delivery Device Oxygen Flow Rate Vent Mode Vent Rate PEEP Pressure Support Vent Sodium 143 Potassium 3.1 L Chloride 105 Carbon Dioxide 26 Anion Gap 12 BUN 15.9 Creatinine 0.5 L Est GFR (CKD-EPI)AfAm 131.72 Est GFR (CKD-EPI)NonAf 113.65 POC Glucometer 387 Random Glucose 157 H Lactic Acid Calcium 7.6 L Phosphorus 1.7 L Magnesium 2.0 Iron TIBC Iron Saturation Unsaturated IBC Ferritin Total Bilirubin 0.3 AST 19 ALT 13 Alkaline Phosphatase 130 H Creatine Kinase Troponin I Total Protein 5.0 L Albumin 1.6 L Prealbumin Triglycerides Cholesterol Total LDL Cholesterol HDL Cholesterol Beta-Hydroxybutyrate Urine Color Urine Appearance Urine pH Ur Specific Carter Urine Protein Urine Glucose (UA) Urine Ketones Urine Blood Urine Nitrite Urine Bilirubin Urine Urobilinogen Ur Leukocyte Esterase Urine WBC (Auto) Urine RBC (Auto) U Epithel Cells (Auto) Urine Bacteria (Auto) Stool Occult Blood Acetone, Qual B-Hydroxybutyrate 03/31/19 03/31/19 03/31/19 06:43 12:18 15:09 WBC RBC Hgb Hct MCV MCH MCHC RDW Plt Count MPV Absolute Neuts (auto) Total Counted Neutrophils % Neutrophils % (Manual) Band Neutrophils % Lymphocytes % Lymphocytes % (Manual) Monocytes % Monocytes % (Manual) Eosinophils % Eosinophils % (Manual) Basophils % Basophils % (Manual) Myelocytes % (Man) Promyelocytes % (Man) Blast Cells % (Manual) Nucleated RBC % Metamyelocytes Hypochromia Toxic Granulation Platelet Estimate Platelet Comment Polychromasia Poikilocytosis Anisocytosis Microcytosis Macrocytosis Spherocytes Target Cells Tear Drop Cells Ovalocytes [place] Cells Schistocytes PT with INR INR PTT (Actin FS) Fibrinogen Puncture Site ABG pH ABG pCO2 at Pt Temp ABG pO2 at Pt Temp ABG HCO3 ABG O2 Sat (Measured) ABG O2 Content ABG Base Excess Atul Test O2 Delivery Device Oxygen Flow Rate Vent Mode Vent Rate PEEP Pressure Support Vent Sodium Potassium Chloride Carbon Dioxide Anion Gap BUN Creatinine Est GFR (CKD-EPI)AfAm Est GFR (CKD-EPI)NonAf POC Glucometer [phone] Random Glucose Lactic Acid Calcium Phosphorus Magnesium Iron TIBC Iron Saturation Unsaturated IBC Ferritin Total Bilirubin AST ALT Alkaline Phosphatase Creatine Kinase Troponin I Total Protein Albumin Prealbumin Triglycerides Cholesterol Total LDL Cholesterol HDL Cholesterol Beta-Hydroxybutyrate Urine Color Urine Appearance Urine pH Ur Specific Carter Urine Protein Urine Glucose (UA) Urine Ketones Urine Blood Urine Nitrite Urine Bilirubin Urine Urobilinogen Ur Leukocyte Esterase Urine WBC (Auto) Urine RBC (Auto) U Epithel Cells (Auto) Urine Bacteria (Auto) Stool Occult Blood Acetone, Qual B-Hydroxybutyrate 03/31/19 03/31/19 04/01/19 17:22 22:27 02:36 WBC RBC Hgb Hct MCV MCH MCHC RDW Plt Count MPV Absolute Neuts (auto) Total Counted Neutrophils % Neutrophils % (Manual) Band Neutrophils % Lymphocytes % Lymphocytes % (Manual) Monocytes % Monocytes % (Manual) Eosinophils % Eosinophils % (Manual) Basophils % Basophils % (Manual) Myelocytes % (Man) Promyelocytes % (Man) Blast Cells % (Manual) Nucleated RBC % Metamyelocytes Hypochromia Toxic Granulation Platelet Estimate Platelet Comment Polychromasia Poikilocytosis Anisocytosis Microcytosis Macrocytosis Spherocytes Target Cells Tear Drop Cells Ovalocytes [place] Cells Schistocytes PT with INR INR PTT (Actin FS) Fibrinogen Puncture Site ABG pH ABG pCO2 at Pt Temp ABG pO2 at Pt Temp ABG HCO3 ABG O2 Sat (Measured) ABG O2 Content ABG Base Excess Atul Test O2 Delivery Device Oxygen Flow Rate Vent Mode Vent Rate PEEP Pressure Support Vent Sodium Potassium Chloride Carbon Dioxide Anion Gap BUN Creatinine Est GFR (CKD-EPI)AfAm Est GFR (CKD-EPI)NonAf POC Glucometer [phone] Random Glucose Lactic Acid Calcium Phosphorus Magnesium Iron TIBC Iron Saturation Unsaturated IBC Ferritin Total Bilirubin AST ALT Alkaline Phosphatase Creatine Kinase Troponin I Total Protein Albumin Prealbumin Triglycerides Cholesterol Total LDL Cholesterol HDL Cholesterol Beta-Hydroxybutyrate Urine Color Urine Appearance Urine pH Ur Specific Carter Urine Protein Urine Glucose (UA) Urine Ketones Urine Blood Urine Nitrite Urine Bilirubin Urine Urobilinogen Ur Leukocyte Esterase Urine WBC (Auto) Urine RBC (Auto) U Epithel Cells (Auto) Urine Bacteria (Auto) Stool Occult Blood Acetone, Qual B-Hydroxybutyrate 04/01/19 04/01/19 04/01/19 06:07 06:43 06:43 WBC 12.8 H RBC 3.43 L Hgb 9.4 L Hct 29.8 L D MCV 87.0 MCH 27.5 MCHC 31.6 L RDW 23.2 H Plt Count 691 H D MPV 7.5 Absolute Neuts (auto) 11.4 H Total Counted Neutrophils % 88.8 H Neutrophils % (Manual) Band Neutrophils % Lymphocytes % 5.8 L D Lymphocytes % (Manual) Monocytes % 4.8 Monocytes % (Manual) Eosinophils % 0.0 D Eosinophils % (Manual) Basophils % 0.6 Basophils % (Manual) Myelocytes % (Man) Promyelocytes % (Man) Blast Cells % (Manual) Nucleated RBC % 0 Metamyelocytes Hypochromia Toxic Granulation Platelet Estimate Platelet Comment Polychromasia Poikilocytosis Anisocytosis Microcytosis Macrocytosis Spherocytes Target Cells Tear Drop Cells Ovalocytes [place] Cells Schistocytes PT with INR INR PTT (Actin FS) Fibrinogen Puncture Site ABG pH ABG pCO2 at Pt Temp ABG pO2 at Pt Temp ABG HCO3 ABG O2 Sat (Measured) ABG O2 Content ABG Base Excess Atul Test O2 Delivery Device Oxygen Flow Rate Vent Mode Vent Rate PEEP Pressure Support Vent Sodium 149 H Potassium 3.4 L Chloride 112 H Carbon Dioxide 16 L Anion Gap 20 H BUN 15.4 Creatinine 0.5 L Est GFR (CKD-EPI)AfAm 131.72 Est GFR (CKD-EPI)NonAf 113.65 POC Glucometer 247 Random Glucose 254 H Lactic Acid Calcium 8.4 L Phosphorus Magnesium 2.2 Iron TIBC Iron Saturation Unsaturated IBC Ferritin Total Bilirubin 0.6 AST 27 ALT 17 Alkaline Phosphatase 174 H Creatine Kinase Troponin I Total Protein 6.5 Albumin 2.1 L Prealbumin Triglycerides Cholesterol Total LDL Cholesterol HDL Cholesterol Beta-Hydroxybutyrate Urine Color Urine Appearance Urine pH Ur Specific Carter Urine Protein Urine Glucose (UA) Urine Ketones Urine Blood Urine Nitrite Urine Bilirubin Urine Urobilinogen Ur Leukocyte Esterase Urine WBC (Auto) Urine RBC (Auto) U Epithel Cells (Auto) Urine Bacteria (Auto) Stool Occult Blood Acetone, Qual B-Hydroxybutyrate 04/01/19 04/01/19 04/01/19 08:27 08:50 10:00 WBC RBC Hgb Hct MCV MCH MCHC RDW Plt Count MPV Absolute Neuts (auto) Total Counted Neutrophils % Neutrophils % (Manual) Band Neutrophils % Lymphocytes % Lymphocytes % (Manual) Monocytes % Monocytes % (Manual) Eosinophils % Eosinophils % (Manual) Basophils % Basophils % (Manual) Myelocytes % (Man) Promyelocytes % (Man) Blast Cells % (Manual) Nucleated RBC % Metamyelocytes Hypochromia Toxic Granulation Platelet Estimate Platelet Comment Polychromasia Poikilocytosis Anisocytosis Microcytosis Macrocytosis Spherocytes Target Cells Tear Drop Cells Ovalocytes [place] Cells Schistocytes PT with INR INR PTT (Actin FS) Fibrinogen Puncture Site Right brachial ABG pH 7.32 L ABG pCO2 at Pt Temp 17.5 L ABG pO2 at Pt Temp 115 H ABG HCO3 8.8 L ABG O2 Sat (Measured) 97.7 ABG O2 Content 12.7 ABG Base Excess -15.9 L Atul Test Positive O2 Delivery Device Room air Oxygen Flow Rate 21% Vent Mode Vent Rate PEEP Pressure Support Vent Sodium 148 H Potassium 3.8 Chloride 112 H Carbon Dioxide 7 L Anion Gap 29 H BUN 17.2 Creatinine 0.6 Est GFR (CKD-EPI)AfAm 124.05 Est GFR (CKD-EPI)NonAf 107.03 POC Glucometer Random Glucose 488 H* Lactic Acid Calcium 8.1 L Phosphorus Magnesium Iron TIBC Iron Saturation Unsaturated IBC Ferritin Total Bilirubin AST ALT Alkaline Phosphatase Creatine Kinase Troponin I Total Protein Albumin Prealbumin Triglycerides Cholesterol Total LDL Cholesterol HDL Cholesterol Beta-Hydroxybutyrate Urine Color Urine Appearance Urine pH Ur Specific Carter Urine Protein Urine Glucose (UA) Urine Ketones Urine Blood Urine Nitrite Urine Bilirubin Urine Urobilinogen Ur Leukocyte Esterase Urine WBC (Auto) Urine RBC (Auto) U Epithel Cells (Auto) Urine Bacteria (Auto) Stool Occult Blood Acetone, Qual Positive moderate 2+ H B-Hydroxybutyrate 04/01/19 04/01/19 04/01/19 10:32 11:10 12:59 WBC RBC Hgb Hct MCV MCH MCHC RDW Plt Count MPV Absolute Neuts (auto) Total Counted Neutrophils % Neutrophils % (Manual) Band Neutrophils % Lymphocytes % Lymphocytes % (Manual) Monocytes % Monocytes % (Manual) Eosinophils % Eosinophils % (Manual) Basophils % Basophils % (Manual) Myelocytes % (Man) Promyelocytes % (Man) Blast Cells % (Manual) Nucleated RBC % Metamyelocytes Hypochromia Toxic Granulation Platelet Estimate Platelet Comment Polychromasia Poikilocytosis Anisocytosis Microcytosis Macrocytosis Spherocytes Target Cells Tear Drop Cells Ovalocytes [place] Cells Schistocytes PT with INR INR PTT (Actin FS) Fibrinogen Puncture Site Right radial ABG pH 7.08 L* ABG pCO2 at Pt Temp 13.9 L* ABG pO2 at Pt Temp 163 H ABG HCO3 4.0 L ABG O2 Sat (Measured) 97.5 ABG O2 Content 12.1 ABG Base Excess -24.8 L Atul Test Positive O2 Delivery Device Oxygen Flow Rate Yes Vent Mode Vent Rate PEEP Pressure Support Vent Sodium Potassium Chloride Carbon Dioxide Anion Gap BUN Creatinine Est GFR (CKD-EPI)AfAm Est GFR (CKD-EPI)NonAf POC Glucometer 440 Random Glucose Lactic Acid 2.4 H* Calcium Phosphorus Magnesium Iron TIBC Iron Saturation Unsaturated IBC Ferritin Total Bilirubin AST ALT Alkaline Phosphatase Creatine Kinase Troponin I Total Protein Albumin Prealbumin Triglycerides Cholesterol Total LDL Cholesterol HDL Cholesterol Beta-Hydroxybutyrate Urine Color Urine Appearance Urine pH Ur Specific Carter Urine Protein Urine Glucose (UA) Urine Ketones Urine Blood Urine Nitrite Urine Bilirubin Urine Urobilinogen Ur Leukocyte Esterase Urine WBC (Auto) Urine RBC (Auto) U Epithel Cells (Auto) Urine Bacteria (Auto) Stool Occult Blood Acetone, Qual B-Hydroxybutyrate 04/01/19 04/01/19 04/01/19 12:59 15:29 17:05 WBC RBC Hgb Hct MCV MCH MCHC RDW Plt Count MPV Absolute Neuts (auto) Total Counted Neutrophils % Neutrophils % (Manual) Band Neutrophils % Lymphocytes % Lymphocytes % (Manual) Monocytes % Monocytes % (Manual) Eosinophils % Eosinophils % (Manual) Basophils % Basophils % (Manual) Myelocytes % (Man) Promyelocytes % (Man) Blast Cells % (Manual) Nucleated RBC % Metamyelocytes Hypochromia Toxic Granulation Platelet Estimate Platelet Comment Polychromasia Poikilocytosis Anisocytosis Microcytosis Macrocytosis Spherocytes Target Cells Tear Drop Cells Ovalocytes [place] Cells Schistocytes PT with INR INR PTT (Actin FS) Fibrinogen Puncture Site ABG pH ABG pCO2 at Pt Temp ABG pO2 at Pt Temp ABG HCO3 ABG O2 Sat (Measured) ABG O2 Content ABG Base Excess Atul Test O2 Delivery Device Oxygen Flow Rate Vent Mode Vent Rate PEEP Pressure Support Vent Sodium Potassium Chloride Carbon Dioxide Anion Gap BUN Creatinine Est GFR (CKD-EPI)AfAm Est GFR (CKD-EPI)NonAf POC Glucometer 228 238 Random Glucose Lactic Acid Calcium Phosphorus Magnesium Iron TIBC Iron Saturation Unsaturated IBC Ferritin Total Bilirubin AST ALT Alkaline Phosphatase Creatine Kinase Troponin I Total Protein Albumin Prealbumin Triglycerides Cholesterol Total LDL Cholesterol HDL Cholesterol Beta-Hydroxybutyrate Urine Color Urine Appearance Urine pH Ur Specific Carter Urine Protein Urine Glucose (UA) Urine Ketones Urine Blood Urine Nitrite Urine Bilirubin Urine Urobilinogen Ur Leukocyte Esterase Urine WBC (Auto) Urine RBC (Auto) U Epithel Cells (Auto) Urine Bacteria (Auto) Stool Occult Blood Acetone, Qual B-Hydroxybutyrate 124.00 H 04/01/19 04/01/19 04/01/19 18:21 18:40 19:21 WBC RBC Hgb Hct MCV MCH MCHC RDW Plt Count MPV Absolute Neuts (auto) Total Counted Neutrophils % Neutrophils % (Manual) Band Neutrophils % Lymphocytes % Lymphocytes % (Manual) Monocytes % Monocytes % (Manual) Eosinophils % Eosinophils % (Manual) Basophils % Basophils % (Manual) Myelocytes % (Man) Promyelocytes % (Man) Blast Cells % (Manual) Nucleated RBC % Metamyelocytes Hypochromia Toxic Granulation Platelet Estimate Platelet Comment Polychromasia Poikilocytosis Anisocytosis Microcytosis Macrocytosis Spherocytes Target Cells Tear Drop Cells Ovalocytes [place] Cells Schistocytes PT with INR INR PTT (Actin FS) Fibrinogen Puncture Site Right brachial ABG pH 7.32 L ABG pCO2 at Pt Temp 36.2 ABG pO2 at Pt Temp 181 H ABG HCO3 18.2 L ABG O2 Sat (Measured) 99.4 H ABG O2 Content 14.2 ABG Base Excess -6.8 L Atul Test Positive O2 Delivery Device Mech. vent. Oxygen Flow Rate 50% Vent Mode A/c Vent Rate 14 PEEP Pressure Support Vent 350 Sodium Potassium Chloride Carbon Dioxide Anion Gap BUN Creatinine Est GFR (CKD-EPI)AfAm Est GFR (CKD-EPI)NonAf POC Glucometer 160 118 Random Glucose Lactic Acid Calcium Phosphorus Magnesium Iron TIBC Iron Saturation Unsaturated IBC Ferritin Total Bilirubin AST ALT Alkaline Phosphatase Creatine Kinase Troponin I Total Protein Albumin Prealbumin Triglycerides Cholesterol Total LDL Cholesterol HDL Cholesterol Beta-Hydroxybutyrate Urine Color Urine Appearance Urine pH Ur Specific Carter Urine Protein Urine Glucose (UA) Urine Ketones Urine Blood Urine Nitrite Urine Bilirubin Urine Urobilinogen Ur Leukocyte Esterase Urine WBC (Auto) Urine RBC (Auto) U Epithel Cells (Auto) Urine Bacteria (Auto) Stool Occult Blood Acetone, Qual B-Hydroxybutyrate 04/01/19 04/01/19 04/01/19 20:00 20:14 21:55 WBC RBC Hgb Hct MCV MCH MCHC RDW Plt Count MPV Absolute Neuts (auto) Total Counted Neutrophils % Neutrophils % (Manual) Band Neutrophils % Lymphocytes % Lymphocytes % (Manual) Monocytes % Monocytes % (Manual) Eosinophils % Eosinophils % (Manual) Basophils % Basophils % (Manual) Myelocytes % (Man) Promyelocytes % (Man) Blast Cells % (Manual) Nucleated RBC % Metamyelocytes Hypochromia Toxic Granulation Platelet Estimate Platelet Comment Polychromasia Poikilocytosis Anisocytosis Microcytosis Macrocytosis Spherocytes Target Cells Tear Drop Cells Ovalocytes [place] Cells Schistocytes PT with INR INR PTT (Actin FS) Fibrinogen Puncture Site ABG pH ABG pCO2 at Pt Temp ABG pO2 at Pt Temp ABG HCO3 ABG O2 Sat (Measured) ABG O2 Content ABG Base Excess Atul Test O2 Delivery Device Oxygen Flow Rate Vent Mode Vent Rate PEEP Pressure Support Vent Sodium 154 H Potassium 3.0 L Chloride 116 H Carbon Dioxide 23 Anion Gap 15 BUN 17.9 Creatinine 0.9 Est GFR (CKD-EPI)AfAm 87.02 Est GFR (CKD-EPI)NonAf 75.08 POC Glucometer 110 176 Random Glucose 96 Lactic Acid Calcium 8.1 L Phosphorus Magnesium Iron TIBC Iron Saturation Unsaturated IBC Ferritin Total Bilirubin AST ALT Alkaline Phosphatase Creatine Kinase Troponin I Total Protein Albumin Prealbumin Triglycerides Cholesterol Total LDL Cholesterol HDL Cholesterol Beta-Hydroxybutyrate Urine Color Urine Appearance Urine pH Ur Specific Carter Urine Protein Urine Glucose (UA) Urine Ketones Urine Blood Urine Nitrite Urine Bilirubin Urine Urobilinogen Ur Leukocyte Esterase Urine WBC (Auto) Urine RBC (Auto) U Epithel Cells (Auto) Urine Bacteria (Auto) Stool Occult Blood Acetone, Qual B-Hydroxybutyrate 04/02/19 04/02/19 04/02/19 00:47 01:00 01:00 WBC RBC Hgb Hct MCV MCH MCHC RDW Plt Count MPV Absolute Neuts (auto) Total Counted Neutrophils % Neutrophils % (Manual) Band Neutrophils % Lymphocytes % Lymphocytes % (Manual) Monocytes % Monocytes % (Manual) Eosinophils % Eosinophils % (Manual) Basophils % Basophils % (Manual) Myelocytes % (Man) Promyelocytes % (Man) Blast Cells % (Manual) Nucleated RBC % Metamyelocytes Hypochromia Toxic Granulation Platelet Estimate Platelet Comment Polychromasia Poikilocytosis Anisocytosis Microcytosis Macrocytosis Spherocytes Target Cells Tear Drop Cells Ovalocytes [place] Cells Schistocytes PT with INR INR PTT (Actin FS) Fibrinogen Puncture Site ABG pH ABG pCO2 at Pt Temp ABG pO2 at Pt Temp ABG HCO3 ABG O2 Sat (Measured) ABG O2 Content ABG Base Excess Atul Test O2 Delivery Device Oxygen Flow Rate Vent Mode Vent Rate PEEP Pressure Support Vent Sodium 155 H Potassium 3.2 L Chloride 120 H Carbon Dioxide 25 Anion Gap 9 BUN 20.8 H Creatinine 0.9 Est GFR (CKD-EPI)AfAm 87.02 Est GFR (CKD-EPI)NonAf 75.08 POC Glucometer 82 Random Glucose 78 Lactic Acid 1.8 Calcium 7.8 L Phosphorus Magnesium Iron TIBC Iron Saturation Unsaturated IBC Ferritin Total Bilirubin AST ALT Alkaline Phosphatase Creatine Kinase Troponin I Total Protein Albumin Prealbumin Triglycerides Cholesterol Total LDL Cholesterol HDL Cholesterol Beta-Hydroxybutyrate Urine Color Urine Appearance Urine pH Ur Specific Carter Urine Protein Urine Glucose (UA) Urine Ketones Urine Blood Urine Nitrite Urine Bilirubin Urine Urobilinogen Ur Leukocyte Esterase Urine WBC (Auto) Urine RBC (Auto) U Epithel Cells (Auto) Urine Bacteria (Auto) Stool Occult Blood Acetone, Qual B-Hydroxybutyrate 04/02/19 04/02/19 04/02/19 02:08 03:06 04:19 WBC RBC Hgb Hct MCV MCH MCHC RDW Plt Count MPV Absolute Neuts (auto) Total Counted Neutrophils % Neutrophils % (Manual) Band Neutrophils % Lymphocytes % Lymphocytes % (Manual) Monocytes % Monocytes % (Manual) Eosinophils % Eosinophils % (Manual) Basophils % Basophils % (Manual) Myelocytes % (Man) Promyelocytes % (Man) Blast Cells % (Manual) Nucleated RBC % Metamyelocytes Hypochromia Toxic Granulation Platelet Estimate Platelet Comment Polychromasia Poikilocytosis Anisocytosis Microcytosis Macrocytosis Spherocytes Target Cells Tear Drop Cells Ovalocytes [place] Cells Schistocytes PT with INR INR PTT (Actin FS) Fibrinogen Puncture Site ABG pH ABG pCO2 at Pt Temp ABG pO2 at Pt Temp ABG HCO3 ABG O2 Sat (Measured) ABG O2 Content ABG Base Excess Atul Test O2 Delivery Device Oxygen Flow Rate Vent Mode Vent Rate PEEP Pressure Support Vent Sodium Potassium Chloride Carbon Dioxide Anion Gap BUN Creatinine Est GFR (CKD-EPI)AfAm Est GFR (CKD-EPI)NonAf POC Glucometer [phone] Random Glucose Lactic Acid Calcium Phosphorus Magnesium Iron TIBC Iron Saturation Unsaturated IBC Ferritin Total Bilirubin AST ALT Alkaline Phosphatase Creatine Kinase Troponin I Total Protein Albumin Prealbumin Triglycerides Cholesterol Total LDL Cholesterol HDL Cholesterol Beta-Hydroxybutyrate Urine Color Urine Appearance Urine pH Ur Specific Carter Urine Protein Urine Glucose (UA) Urine Ketones Urine Blood Urine Nitrite Urine Bilirubin Urine Urobilinogen Ur Leukocyte Esterase Urine WBC (Auto) Urine RBC (Auto) U Epithel Cells (Auto) Urine Bacteria (Auto) Stool Occult Blood Acetone, Qual B-Hydroxybutyrate 04/02/19 04/02/19 04/02/19 05:30 05:32 06:00 WBC 11.0 H RBC 2.87 L Hgb 8.2 L Hct 24.6 L D MCV 85.7 MCH 28.6 MCHC 33.4 RDW 22.7 H Plt Count 594 H MPV 7.5 Absolute Neuts (auto) 8.3 H Total Counted Neutrophils % 75.5 Neutrophils % (Manual) Band Neutrophils % Lymphocytes % 17.6 D Lymphocytes % (Manual) Monocytes % 5.5 Monocytes % (Manual) Eosinophils % 0.7 D Eosinophils % (Manual) Basophils % 0.7 Basophils % (Manual) Myelocytes % (Man) Promyelocytes % (Man) Blast Cells % (Manual) Nucleated RBC % 0 Metamyelocytes Hypochromia Toxic Granulation Platelet Estimate Platelet Comment Polychromasia Poikilocytosis Anisocytosis Microcytosis Macrocytosis Spherocytes Target Cells Tear Drop Cells Ovalocytes [place] Cells Schistocytes PT with INR INR PTT (Actin FS) Fibrinogen Puncture Site ABG pH ABG pCO2 at Pt Temp ABG pO2 at Pt Temp ABG HCO3 ABG O2 Sat (Measured) ABG O2 Content ABG Base Excess Atul Test O2 Delivery Device Oxygen Flow Rate Vent Mode Vent Rate PEEP Pressure Support Vent Sodium 153 H Potassium 3.5 Chloride 120 H Carbon Dioxide 25 Anion Gap 9 BUN 22.1 H Creatinine 0.9 Est GFR (CKD-EPI)AfAm 87.02 Est GFR (CKD-EPI)NonAf 75.08 POC Glucometer 146 Random Glucose 152 H Lactic Acid Calcium 7.9 L Phosphorus Magnesium 2.2 Iron TIBC Iron Saturation Unsaturated IBC Ferritin Total Bilirubin 0.2 AST 22 ALT 14 Alkaline Phosphatase 151 H Creatine Kinase Troponin I Total Protein 5.5 L Albumin 1.7 L Prealbumin Triglycerides Cholesterol Total LDL Cholesterol HDL Cholesterol Beta-Hydroxybutyrate Urine Color Urine Appearance Urine pH Ur Specific Carter Urine Protein Urine Glucose (UA) Urine Ketones Urine Blood Urine Nitrite Urine Bilirubin Urine Urobilinogen Ur Leukocyte Esterase Urine WBC (Auto) Urine RBC (Auto) U Epithel Cells (Auto) Urine Bacteria (Auto) Stool Occult Blood Acetone, Qual B-Hydroxybutyrate 04/02/19 04/02/19 04/02/19 06:05 07:06 08:50 WBC RBC Hgb Hct MCV MCH MCHC RDW Plt Count MPV Absolute Neuts (auto) Total Counted Neutrophils % Neutrophils % (Manual) Band Neutrophils % Lymphocytes % Lymphocytes % (Manual) Monocytes % Monocytes % (Manual) Eosinophils % Eosinophils % (Manual) Basophils % Basophils % (Manual) Myelocytes % (Man) Promyelocytes % (Man) Blast Cells % (Manual) Nucleated RBC % Metamyelocytes Hypochromia Toxic Granulation Platelet Estimate Platelet Comment Polychromasia Poikilocytosis Anisocytosis Microcytosis Macrocytosis Spherocytes Target Cells Tear Drop Cells Ovalocytes [place] Cells Schistocytes PT with INR INR PTT (Actin FS) Fibrinogen Puncture Site Left radial ABG pH 7.40 ABG pCO2 at Pt Temp 39.5 ABG pO2 at Pt Temp 132 H ABG HCO3 24.2 ABG O2 Sat (Measured) 99.1 H ABG O2 Content 11.9 ABG Base Excess 0 Atul Test Positive O2 Delivery Device Mech vent Oxygen Flow Rate 50 Vent Mode A/c Vent Rate 14 PEEP 5.0 Pressure Support Vent 350 Sodium Potassium Chloride Carbon Dioxide Anion Gap BUN Creatinine Est GFR (CKD-EPI)AfAm Est GFR (CKD-EPI)NonAf POC Glucometer 219 150 Random Glucose Lactic Acid Calcium Phosphorus Magnesium Iron TIBC Iron Saturation Unsaturated IBC Ferritin Total Bilirubin AST ALT Alkaline Phosphatase Creatine Kinase Troponin I Total Protein Albumin Prealbumin Triglycerides Cholesterol Total LDL Cholesterol HDL Cholesterol Beta-Hydroxybutyrate Urine Color Urine Appearance Urine pH Ur Specific Carter Urine Protein Urine Glucose (UA) Urine Ketones Urine Blood Urine Nitrite Urine Bilirubin Urine Urobilinogen Ur Leukocyte Esterase Urine WBC (Auto) Urine RBC (Auto) U Epithel Cells (Auto) Urine Bacteria (Auto) Stool Occult Blood Acetone, Qual B-Hydroxybutyrate 04/02/19 04/02/19 04/02/19 10:30 14:47 15:48 WBC RBC Hgb Hct MCV MCH MCHC RDW Plt Count MPV Absolute Neuts (auto) Total Counted Neutrophils % Neutrophils % (Manual) Band Neutrophils % Lymphocytes % Lymphocytes % (Manual) Monocytes % Monocytes % (Manual) Eosinophils % Eosinophils % (Manual) Basophils % Basophils % (Manual) Myelocytes % (Man) Promyelocytes % (Man) Blast Cells % (Manual) Nucleated RBC % Metamyelocytes Hypochromia Toxic Granulation Platelet Estimate Platelet Comment Polychromasia Poikilocytosis Anisocytosis Microcytosis Macrocytosis Spherocytes Target Cells Tear Drop Cells Ovalocytes [place] Cells Schistocytes PT with INR INR PTT (Actin FS) Fibrinogen Puncture Site ABG pH ABG pCO2 at Pt Temp ABG pO2 at Pt Temp ABG HCO3 ABG O2 Sat (Measured) ABG O2 Content ABG Base Excess Atul Test O2 Delivery Device Oxygen Flow Rate Vent Mode Vent Rate PEEP Pressure Support Vent Sodium Potassium Chloride Carbon Dioxide Anion Gap BUN Creatinine Est GFR (CKD-EPI)AfAm Est GFR (CKD-EPI)NonAf POC Glucometer [phone] Random Glucose Lactic Acid Calcium Phosphorus Magnesium Iron TIBC Iron Saturation Unsaturated IBC Ferritin Total Bilirubin AST ALT Alkaline Phosphatase Creatine Kinase Troponin I Total Protein Albumin Prealbumin Triglycerides Cholesterol Total LDL Cholesterol HDL Cholesterol Beta-Hydroxybutyrate Urine Color Urine Appearance Urine pH Ur Specific Carter Urine Protein Urine Glucose (UA) Urine Ketones Urine Blood Urine Nitrite Urine Bilirubin Urine Urobilinogen Ur Leukocyte Esterase Urine WBC (Auto) Urine RBC (Auto) U Epithel Cells (Auto) Urine Bacteria (Auto) Stool Occult Blood Acetone, Qual B-Hydroxybutyrate 04/02/19 04/02/19 04/03/19 18:26 23:59 01:03 WBC RBC Hgb Hct MCV MCH MCHC RDW Plt Count MPV Absolute Neuts (auto) Total Counted Neutrophils % Neutrophils % (Manual) Band Neutrophils % Lymphocytes % Lymphocytes % (Manual) Monocytes % Monocytes % (Manual) Eosinophils % Eosinophils % (Manual) Basophils % Basophils % (Manual) Myelocytes % (Man) Promyelocytes % (Man) Blast Cells % (Manual) Nucleated RBC % Metamyelocytes Hypochromia Toxic Granulation Platelet Estimate Platelet Comment Polychromasia Poikilocytosis Anisocytosis Microcytosis Macrocytosis Spherocytes Target Cells Tear Drop Cells Ovalocytes [place] Cells Schistocytes PT with INR INR PTT (Actin FS) Fibrinogen Puncture Site ABG pH ABG pCO2 at Pt Temp ABG pO2 at Pt Temp ABG HCO3 ABG O2 Sat (Measured) ABG O2 Content ABG Base Excess Atul Test O2 Delivery Device Oxygen Flow Rate Vent Mode Vent Rate PEEP Pressure Support Vent Sodium Potassium Chloride Carbon Dioxide Anion Gap BUN Creatinine Est GFR (CKD-EPI)AfAm Est GFR (CKD-EPI)NonAf POC Glucometer [phone] Random Glucose Lactic Acid Calcium Phosphorus Magnesium Iron TIBC Iron Saturation Unsaturated IBC Ferritin Total Bilirubin AST ALT Alkaline Phosphatase Creatine Kinase Troponin I Total Protein Albumin Prealbumin Triglycerides Cholesterol Total LDL Cholesterol HDL Cholesterol Beta-Hydroxybutyrate Urine Color Urine Appearance Urine pH Ur Specific [place] Urine Protein Urine Glucose (UA) Urine Ketones Urine Blood Urine Nitrite Urine Bilirubin Urine Urobilinogen Ur Leukocyte Esterase Urine WBC (Auto) Urine RBC (Auto) U Epithel Cells (Auto) Urine Bacteria (Auto) Stool Occult Blood Acetone, Qual B-Hydroxybutyrate 04/03/19 04/03/19 04/03/19 02:52 05:00 05:00 WBC 9.5 RBC 2.87 L Hgb 8.2 L Hct 24.8 L MCV 86.3 MCH 28.7 MCHC 33.2 RDW 23.1 H Plt Count 550 H MPV 7.4 L Absolute Neuts (auto) 6.5 Total Counted Neutrophils % 67.9 Neutrophils % (Manual) Band Neutrophils % Lymphocytes % 22.9 D Lymphocytes % (Manual) Monocytes % 6.1 Monocytes % (Manual) Eosinophils % 2.3 D Eosinophils % (Manual) Basophils % 0.8 Basophils % (Manual) Myelocytes % (Man) Promyelocytes % (Man) Blast Cells % (Manual) Nucleated RBC % 0 Metamyelocytes Hypochromia 0 Toxic Granulation Platelet Estimate Increased Platelet Comment Polychromasia 0 Poikilocytosis 0 Anisocytosis 1+ Microcytosis 1+ Macrocytosis 1+ Spherocytes Target Cells 1+ Tear Drop Cells Ovalocytes 1+ [place] Cells Schistocytes PT with INR INR PTT (Actin FS) Fibrinogen Puncture Site ABG pH ABG pCO2 at Pt Temp ABG pO2 at Pt Temp ABG HCO3 ABG O2 Sat (Measured) ABG O2 Content ABG Base Excess Atul Test O2 Delivery Device Oxygen Flow Rate Vent Mode Vent Rate PEEP Pressure Support Vent Sodium 151 H Potassium 3.5 Chloride 116 H Carbon Dioxide 27 Anion Gap 7 L BUN 21.4 H Creatinine 0.6 Est GFR (CKD-EPI)AfAm 124.05 Est GFR (CKD-EPI)NonAf 107.03 POC Glucometer 112 Random Glucose 230 H Lactic Acid Calcium 7.8 L Phosphorus 1.9 L Magnesium 1.9 Iron TIBC Iron Saturation Unsaturated IBC Ferritin Total Bilirubin 0.3 AST 18 ALT 12 L Alkaline Phosphatase 138 H Creatine Kinase Troponin I Total Protein 5.3 L Albumin 1.8 L Prealbumin Triglycerides Cholesterol Total LDL Cholesterol HDL Cholesterol Beta-Hydroxybutyrate Urine Color Urine Appearance Urine pH Ur Specific Carter Urine Protein Urine Glucose (UA) Urine Ketones Urine Blood Urine Nitrite Urine Bilirubin Urine Urobilinogen Ur Leukocyte Esterase Urine WBC (Auto) Urine RBC (Auto) U Epithel Cells (Auto) Urine Bacteria (Auto) Stool Occult Blood Acetone, Qual B-Hydroxybutyrate 04/03/19 04/03/19 04/03/19 05:00 05:27 10:53 WBC RBC Hgb Hct MCV MCH MCHC RDW Plt Count MPV Absolute Neuts (auto) Total Counted Neutrophils % Neutrophils % (Manual) Band Neutrophils % Lymphocytes % Lymphocytes % (Manual) Monocytes % Monocytes % (Manual) Eosinophils % Eosinophils % (Manual) Basophils % Basophils % (Manual) Myelocytes % (Man) Promyelocytes % (Man) Blast Cells % (Manual) Nucleated RBC % Metamyelocytes Hypochromia Toxic Granulation Platelet Estimate Platelet Comment Polychromasia Poikilocytosis Anisocytosis Microcytosis Macrocytosis Spherocytes Target Cells Tear Drop Cells Ovalocytes [place] Cells Schistocytes PT with INR INR PTT (Actin FS) Fibrinogen Puncture Site ABG pH ABG pCO2 at Pt Temp ABG pO2 at Pt Temp ABG HCO3 ABG O2 Sat (Measured) ABG O2 Content ABG Base Excess Atul Test O2 Delivery Device Oxygen Flow Rate Vent Mode Vent Rate PEEP Pressure Support Vent Sodium Potassium Chloride Carbon Dioxide Anion Gap BUN Creatinine Est GFR (CKD-EPI)AfAm Est GFR (CKD-EPI)NonAf POC Glucometer [phone] Random Glucose Lactic Acid Calcium Phosphorus Magnesium Iron TIBC Iron Saturation Unsaturated IBC Ferritin Total Bilirubin AST ALT Alkaline Phosphatase Creatine Kinase Troponin I Total Protein Albumin Prealbumin Triglycerides Cholesterol Total LDL Cholesterol HDL Cholesterol Beta-Hydroxybutyrate Urine Color Yellow Urine Appearance Clear Urine pH 6.0 Ur Specific Carter 1.025 Urine Protein 2+ H Urine Glucose (UA) Negative Urine Ketones 1+ H Urine Blood Negative Urine Nitrite Negative Urine Bilirubin 1+ H Urine Urobilinogen 0.2 Ur Leukocyte Esterase Negative Urine WBC (Auto) 0-3 Urine RBC (Auto) 0-3 U Epithel Cells (Auto) 2-5 Urine Bacteria (Auto) Few Stool Occult Blood Acetone, Qual B-Hydroxybutyrate 04/03/19 04/03/19 04/03/19 14:01 17:22 22:23 WBC RBC Hgb Hct MCV MCH MCHC RDW Plt Count MPV Absolute Neuts (auto) Total Counted Neutrophils % Neutrophils % (Manual) Band Neutrophils % Lymphocytes % Lymphocytes % (Manual) Monocytes % Monocytes % (Manual) Eosinophils % Eosinophils % (Manual) Basophils % Basophils % (Manual) Myelocytes % (Man) Promyelocytes % (Man) Blast Cells % (Manual) Nucleated RBC % Metamyelocytes Hypochromia Toxic Granulation Platelet Estimate Platelet Comment Polychromasia Poikilocytosis Anisocytosis Microcytosis Macrocytosis Spherocytes Target Cells Tear Drop Cells Ovalocytes [place] Cells Schistocytes PT with INR INR PTT (Actin FS) Fibrinogen Puncture Site ABG pH ABG pCO2 at Pt Temp ABG pO2 at Pt Temp ABG HCO3 ABG O2 Sat (Measured) ABG O2 Content ABG Base Excess Atul Test O2 Delivery Device Oxygen Flow Rate Vent Mode Vent Rate PEEP Pressure Support Vent Sodium Potassium Chloride Carbon Dioxide Anion Gap BUN Creatinine Est GFR (CKD-EPI)AfAm Est GFR (CKD-EPI)NonAf POC Glucometer [phone] Random Glucose Lactic Acid Calcium Phosphorus Magnesium Iron TIBC Iron Saturation Unsaturated IBC Ferritin Total Bilirubin AST ALT Alkaline Phosphatase Creatine Kinase Troponin I Total Protein Albumin Prealbumin Triglycerides Cholesterol Total LDL Cholesterol HDL Cholesterol Beta-Hydroxybutyrate Urine Color Urine Appearance Urine pH Ur Specific Carter Urine Protein Urine Glucose (UA) Urine Ketones Urine Blood Urine Nitrite Urine Bilirubin Urine Urobilinogen Ur Leukocyte Esterase Urine WBC (Auto) Urine RBC (Auto) U Epithel Cells (Auto) Urine Bacteria (Auto) Stool Occult Blood Acetone, Qual B-Hydroxybutyrate 04/04/19 04/04/19 04/04/19 03:12 05:15 05:15 WBC 10.0 RBC 2.66 L Hgb 7.8 L Hct 22.9 L MCV 86.1 MCH 29.2 MCHC 34.0 RDW 23.1 H Plt Count 475 H MPV 7.5 Absolute Neuts (auto) 7.3 Total Counted Neutrophils % 73.2 Neutrophils % (Manual) Band Neutrophils % Lymphocytes % 18.0 D Lymphocytes % (Manual) Monocytes % 4.7 Monocytes % (Manual) Eosinophils % 3.3 Eosinophils % (Manual) Basophils % 0.8 Basophils % (Manual) Myelocytes % (Man) Promyelocytes % (Man) Blast Cells % (Manual) Nucleated RBC % 0 Metamyelocytes Hypochromia Toxic Granulation Platelet Estimate Platelet Comment Polychromasia Poikilocytosis Anisocytosis Microcytosis Macrocytosis Spherocytes Target Cells Tear Drop Cells Ovalocytes [place] Cells Schistocytes PT with INR INR PTT (Actin FS) Fibrinogen Puncture Site ABG pH ABG pCO2 at Pt Temp ABG pO2 at Pt Temp ABG HCO3 ABG O2 Sat (Measured) ABG O2 Content ABG Base Excess Atul Test O2 Delivery Device Oxygen Flow Rate Vent Mode Vent Rate PEEP Pressure Support Vent Sodium 149 H Potassium 3.1 L Chloride 112 H Carbon Dioxide 29 Anion Gap 8 BUN 18.4 H Creatinine 0.5 L Est GFR (CKD-EPI)AfAm 131.72 Est GFR (CKD-EPI)NonAf 113.65 POC Glucometer 202 Random Glucose 185 H Lactic Acid Calcium 7.5 L Phosphorus Magnesium 1.8 Iron TIBC Iron Saturation Unsaturated IBC Ferritin Total Bilirubin 0.2 AST 14 L ALT 11 L Alkaline Phosphatase 126 H Creatine Kinase Troponin I Total Protein 4.8 L Albumin 1.5 L Prealbumin Triglycerides Cholesterol Total LDL Cholesterol HDL Cholesterol Beta-Hydroxybutyrate Urine Color Urine Appearance Urine pH Ur Specific Carter Urine Protein Urine Glucose (UA) Urine Ketones Urine Blood Urine Nitrite Urine Bilirubin Urine Urobilinogen Ur Leukocyte Esterase Urine WBC (Auto) Urine RBC (Auto) U Epithel Cells (Auto) Urine Bacteria (Auto) Stool Occult Blood Acetone, Qual B-Hydroxybutyrate 04/04/19 04/04/19 04/04/19 07:57 11:16 15:05 WBC RBC Hgb Hct MCV MCH MCHC RDW Plt Count MPV Absolute Neuts (auto) Total Counted Neutrophils % Neutrophils % (Manual) Band Neutrophils % Lymphocytes % Lymphocytes % (Manual) Monocytes % Monocytes % (Manual) Eosinophils % Eosinophils % (Manual) Basophils % Basophils % (Manual) Myelocytes % (Man) Promyelocytes % (Man) Blast Cells % (Manual) Nucleated RBC % Metamyelocytes Hypochromia Toxic Granulation Platelet Estimate Platelet Comment Polychromasia Poikilocytosis Anisocytosis Microcytosis Macrocytosis Spherocytes Target Cells Tear Drop Cells Ovalocytes [place] Cells Schistocytes PT with INR INR PTT (Actin FS) Fibrinogen Puncture Site ABG pH ABG pCO2 at Pt Temp ABG pO2 at Pt Temp ABG HCO3 ABG O2 Sat (Measured) ABG O2 Content ABG Base Excess Atul Test O2 Delivery Device Oxygen Flow Rate Vent Mode Vent Rate PEEP Pressure Support Vent Sodium Potassium Chloride Carbon Dioxide Anion Gap BUN Creatinine Est GFR (CKD-EPI)AfAm Est GFR (CKD-EPI)NonAf POC Glucometer [phone] Random Glucose Lactic Acid Calcium Phosphorus Magnesium Iron TIBC Iron Saturation Unsaturated IBC Ferritin Total Bilirubin AST ALT Alkaline Phosphatase Creatine Kinase Troponin I Total Protein Albumin Prealbumin Triglycerides Cholesterol Total LDL Cholesterol HDL Cholesterol Beta-Hydroxybutyrate Urine Color Urine Appearance Urine pH Ur Specific Carter Urine Protein Urine Glucose (UA) Urine Ketones Urine Blood Urine Nitrite Urine Bilirubin Urine Urobilinogen Ur Leukocyte Esterase Urine WBC (Auto) Urine RBC (Auto) U Epithel Cells (Auto) Urine Bacteria (Auto) Stool Occult Blood Acetone, Qual B-Hydroxybutyrate 04/04/19 04/04/19 04/05/19 17:59 23:14 02:30 WBC RBC Hgb Hct MCV MCH MCHC RDW Plt Count MPV Absolute Neuts (auto) Total Counted Neutrophils % Neutrophils % (Manual) Band Neutrophils % Lymphocytes % Lymphocytes % (Manual) Monocytes % Monocytes % (Manual) Eosinophils % Eosinophils % (Manual) Basophils % Basophils % (Manual) Myelocytes % (Man) Promyelocytes % (Man) Blast Cells % (Manual) Nucleated RBC % Metamyelocytes Hypochromia Toxic Granulation Platelet Estimate Platelet Comment Polychromasia Poikilocytosis Anisocytosis Microcytosis Macrocytosis Spherocytes Target Cells Tear Drop Cells Ovalocytes [place] Cells Schistocytes PT with INR INR PTT (Actin FS) Fibrinogen Puncture Site ABG pH ABG pCO2 at Pt Temp ABG pO2 at Pt Temp ABG HCO3 ABG O2 Sat (Measured) ABG O2 Content ABG Base Excess Atul Test O2 Delivery Device Oxygen Flow Rate Vent Mode Vent Rate PEEP Pressure Support Vent Sodium Potassium Chloride Carbon Dioxide Anion Gap BUN Creatinine Est GFR (CKD-EPI)AfAm Est GFR (CKD-EPI)NonAf POC Glucometer [phone] Random Glucose Lactic Acid Calcium Phosphorus Magnesium Iron TIBC Iron Saturation Unsaturated IBC Ferritin Total Bilirubin AST ALT Alkaline Phosphatase Creatine Kinase Troponin I Total Protein Albumin Prealbumin Triglycerides Cholesterol Total LDL Cholesterol HDL Cholesterol Beta-Hydroxybutyrate Urine Color Urine Appearance Urine pH Ur Specific Carter Urine Protein Urine Glucose (UA) Urine Ketones Urine Blood Urine Nitrite Urine Bilirubin Urine Urobilinogen Ur Leukocyte Esterase Urine WBC (Auto) Urine RBC (Auto) U Epithel Cells (Auto) Urine Bacteria (Auto) Stool Occult Blood Acetone, Qual B-Hydroxybutyrate 04/05/19 04/05/19 04/05/19 05:50 10:05 11:06 WBC RBC Hgb Hct MCV MCH MCHC RDW Plt Count MPV Absolute Neuts (auto) Total Counted Neutrophils % Neutrophils % (Manual) Band Neutrophils % Lymphocytes % Lymphocytes % (Manual) Monocytes % Monocytes % (Manual) Eosinophils % Eosinophils % (Manual) Basophils % Basophils % (Manual) Myelocytes % (Man) Promyelocytes % (Man) Blast Cells % (Manual) Nucleated RBC % Metamyelocytes Hypochromia Toxic Granulation Platelet Estimate Platelet Comment Polychromasia Poikilocytosis Anisocytosis Microcytosis Macrocytosis Spherocytes Target Cells Tear Drop Cells Ovalocytes [place] Cells Schistocytes PT with INR INR PTT (Actin FS) Fibrinogen Puncture Site ABG pH ABG pCO2 at Pt Temp ABG pO2 at Pt Temp ABG HCO3 ABG O2 Sat (Measured) ABG O2 Content ABG Base Excess Atul Test O2 Delivery Device Oxygen Flow Rate Vent Mode Vent Rate PEEP Pressure Support Vent Sodium Potassium Chloride Carbon Dioxide Anion Gap BUN Creatinine Est GFR (CKD-EPI)AfAm Est GFR (CKD-EPI)NonAf POC Glucometer [phone] Random Glucose Lactic Acid Calcium Phosphorus Magnesium Iron TIBC Iron Saturation Unsaturated IBC Ferritin Total Bilirubin AST ALT Alkaline Phosphatase Creatine Kinase Troponin I Total Protein Albumin Prealbumin Triglycerides Cholesterol Total LDL Cholesterol HDL Cholesterol Beta-Hydroxybutyrate Urine Color Urine Appearance Urine pH Ur Specific Carter Urine Protein Urine Glucose (UA) Urine Ketones Urine Blood Urine Nitrite Urine Bilirubin Urine Urobilinogen Ur Leukocyte Esterase Urine WBC (Auto) Urine RBC (Auto) U Epithel Cells (Auto) Urine Bacteria (Auto) Stool Occult Blood Acetone, Qual B-Hydroxybutyrate 04/05/19 04/05/19 04/05/19 12:29 13:35 14:44 WBC RBC Hgb Hct MCV MCH MCHC RDW Plt Count MPV Absolute Neuts (auto) Total Counted Neutrophils % Neutrophils % (Manual) Band Neutrophils % Lymphocytes % Lymphocytes % (Manual) Monocytes % Monocytes % (Manual) Eosinophils % Eosinophils % (Manual) Basophils % Basophils % (Manual) Myelocytes % (Man) Promyelocytes % (Man) Blast Cells % (Manual) Nucleated RBC % Metamyelocytes Hypochromia Toxic Granulation Platelet Estimate Platelet Comment Polychromasia Poikilocytosis Anisocytosis Microcytosis Macrocytosis Spherocytes Target Cells Tear Drop Cells Ovalocytes [place] Cells Schistocytes PT with INR INR PTT (Actin FS) Fibrinogen Puncture Site ABG pH ABG pCO2 at Pt Temp ABG pO2 at Pt Temp ABG HCO3 ABG O2 Sat (Measured) ABG O2 Content ABG Base Excess Atul Test O2 Delivery Device Oxygen Flow Rate Vent Mode Vent Rate PEEP Pressure Support Vent Sodium Potassium Chloride Carbon Dioxide Anion Gap BUN Creatinine Est GFR (CKD-EPI)AfAm Est GFR (CKD-EPI)NonAf POC Glucometer [phone] Random Glucose Lactic Acid Calcium Phosphorus Magnesium Iron TIBC Iron Saturation Unsaturated IBC Ferritin Total Bilirubin AST ALT Alkaline Phosphatase Creatine Kinase Troponin I Total Protein Albumin Prealbumin Triglycerides Cholesterol Total LDL Cholesterol HDL Cholesterol Beta-Hydroxybutyrate Urine Color Urine Appearance Urine pH Ur Specific Carter Urine Protein Urine Glucose (UA) Urine Ketones Urine Blood Urine Nitrite Urine Bilirubin Urine Urobilinogen Ur Leukocyte Esterase Urine WBC (Auto) Urine RBC (Auto) U Epithel Cells (Auto) Urine Bacteria (Auto) Stool Occult Blood Acetone, Qual B-Hydroxybutyrate 04/05/19 04/05/19 04/05/19 15:52 17:06 21:18 WBC RBC Hgb Hct MCV MCH MCHC RDW Plt Count MPV Absolute Neuts (auto) Total Counted Neutrophils % Neutrophils % (Manual) Band Neutrophils % Lymphocytes % Lymphocytes % (Manual) Monocytes % Monocytes % (Manual) Eosinophils % Eosinophils % (Manual) Basophils % Basophils % (Manual) Myelocytes % (Man) Promyelocytes % (Man) Blast Cells % (Manual) Nucleated RBC % Metamyelocytes Hypochromia Toxic Granulation Platelet Estimate Platelet Comment Polychromasia Poikilocytosis Anisocytosis Microcytosis Macrocytosis Spherocytes Target Cells Tear Drop Cells Ovalocytes [place] Cells Schistocytes PT with INR INR PTT (Actin FS) Fibrinogen Puncture Site ABG pH ABG pCO2 at Pt Temp ABG pO2 at Pt Temp ABG HCO3 ABG O2 Sat (Measured) ABG O2 Content ABG Base Excess Atul Test O2 Delivery Device Oxygen Flow Rate Vent Mode Vent Rate PEEP Pressure Support Vent Sodium Potassium Chloride Carbon Dioxide Anion Gap BUN Creatinine Est GFR (CKD-EPI)AfAm Est GFR (CKD-EPI)NonAf POC Glucometer [phone] Random Glucose Lactic Acid Calcium Phosphorus Magnesium Iron TIBC Iron Saturation Unsaturated IBC Ferritin Total Bilirubin AST ALT Alkaline Phosphatase Creatine Kinase Troponin I Total Protein Albumin Prealbumin Triglycerides Cholesterol Total LDL Cholesterol HDL Cholesterol Beta-Hydroxybutyrate Urine Color Urine Appearance Urine pH Ur Specific [place] Urine Protein Urine Glucose (UA) Urine Ketones Urine Blood Urine Nitrite Urine Bilirubin Urine Urobilinogen Ur Leukocyte Esterase Urine WBC (Auto) Urine RBC (Auto) U Epithel Cells (Auto) Urine Bacteria (Auto) Stool Occult Blood Acetone, Qual B-Hydroxybutyrate 04/09/19 04/09/19 04/09/19 05:48 17:18 21:30 WBC RBC Hgb Hct MCV MCH MCHC RDW Plt Count MPV Absolute Neuts (auto) Total Counted Neutrophils % Neutrophils % (Manual) Band Neutrophils % Lymphocytes % Lymphocytes % (Manual) Monocytes % Monocytes % (Manual) Eosinophils % Eosinophils % (Manual) Basophils % Basophils % (Manual) Myelocytes % (Man) Promyelocytes % (Man) Blast Cells % (Manual) Nucleated RBC % Metamyelocytes Hypochromia Toxic Granulation Platelet Estimate Platelet Comment Polychromasia Poikilocytosis Anisocytosis Microcytosis Macrocytosis Spherocytes Target Cells Tear Drop Cells Ovalocytes [place] Cells Schistocytes PT with INR INR PTT (Actin FS) Fibrinogen Puncture Site ABG pH ABG pCO2 at Pt Temp ABG pO2 at Pt Temp ABG HCO3 ABG O2 Sat (Measured) ABG O2 Content ABG Base Excess Atul Test O2 Delivery Device Oxygen Flow Rate Vent Mode Vent Rate PEEP Pressure Support Vent Sodium 139 Potassium 3.6 Chloride 104 Carbon Dioxide 28 Anion Gap 6 L BUN 7.1 Creatinine 0.3 L Est GFR (CKD-EPI)AfAm 155.82 Est GFR (CKD-EPI)NonAf 134.44 POC Glucometer 260 71 Random Glucose 348 H Lactic Acid Calcium 7.4 L Phosphorus Magnesium 1.7 L Iron TIBC Iron Saturation Unsaturated IBC Ferritin Total Bilirubin 0.3 AST 20 ALT 14 Alkaline Phosphatase 173 H Creatine Kinase Troponin I Total Protein 5.5 L Albumin 1.7 L Prealbumin Triglycerides 151 H Cholesterol 149 Total LDL Cholesterol 72 HDL Cholesterol 55 Beta-Hydroxybutyrate Urine Color Urine Appearance Urine pH Ur Specific [place] Urine Protein Urine Glucose (UA) Urine Ketones Urine Blood Urine Nitrite Urine Bilirubin Urine Urobilinogen Ur Leukocyte Esterase Urine WBC (Auto) Urine RBC (Auto) U Epithel Cells (Auto) Urine Bacteria (Auto) Stool Occult Blood Acetone, Qual B-Hydroxybutyrate 04/10/19 04/10/19 04/10/19 06:00 06:00 07:35 WBC 9.3 RBC 2.84 L Hgb 8.0 L Hct 24.8 L MCV 87.1 MCH 28.1 MCHC 32.3 RDW 23.6 H Plt Count 514 H MPV 8.3 Absolute Neuts (auto) 6.1 Total Counted Neutrophils % 66.0 Neutrophils % (Manual) Band Neutrophils % Lymphocytes % 21.3 Lymphocytes % (Manual) Monocytes % 11.5 H Monocytes % (Manual) Eosinophils % 0.8 D Eosinophils % (Manual) Basophils % 0.4 Basophils % (Manual) Myelocytes % (Man) Promyelocytes % (Man) Blast Cells % (Manual) Nucleated RBC % 0 Metamyelocytes Hypochromia Toxic Granulation Platelet Estimate Platelet Comment Polychromasia Poikilocytosis Anisocytosis Microcytosis Macrocytosis Spherocytes Target Cells Tear Drop Cells Ovalocytes [place] Cells Schistocytes PT with INR INR PTT (Actin FS) Fibrinogen Puncture Site ABG pH ABG pCO2 at Pt Temp ABG pO2 at Pt Temp ABG HCO3 ABG O2 Sat (Measured) ABG O2 Content ABG Base Excess Atul Test O2 Delivery Device Oxygen Flow Rate Vent Mode Vent Rate PEEP Pressure Support Vent Sodium 138 Potassium 3.1 L Chloride 102 Carbon Dioxide 29 Anion Gap 7 L BUN 6.8 L Creatinine 0.3 L Est GFR (CKD-EPI)AfAm 155.82 Est GFR (CKD-EPI)NonAf 134.44 POC Glucometer 276 Random Glucose 225 H Lactic Acid Calcium 7.7 L Phosphorus Magnesium 1.7 L Iron TIBC Iron Saturation Unsaturated IBC Ferritin Total Bilirubin 0.3 AST 19 ALT 14 Alkaline Phosphatase 175 H Creatine Kinase Troponin I Total Protein 5.5 L Albumin 1.8 L Prealbumin Triglycerides Cholesterol Total LDL Cholesterol HDL Cholesterol Beta-Hydroxybutyrate Urine Color Urine Appearance Urine pH Ur Specific [place] Urine Protein Urine Glucose (UA) Urine Ketones Urine Blood Urine Nitrite Urine Bilirubin Urine Urobilinogen Ur Leukocyte Esterase Urine WBC (Auto) Urine RBC (Auto) U Epithel Cells (Auto) Urine Bacteria (Auto) Stool Occult Blood Acetone, Qual B-Hydroxybutyrate 04/10/19 11:31 WBC RBC Hgb Hct MCV MCH MCHC RDW Plt Count MPV Absolute Neuts (auto) Total Counted Neutrophils % Neutrophils % (Manual) Band Neutrophils % Lymphocytes % Lymphocytes % (Manual) Monocytes % Monocytes % (Manual) Eosinophils % Eosinophils % (Manual) Basophils % Basophils % (Manual) Myelocytes % (Man) Promyelocytes % (Man) Blast Cells % (Manual) Nucleated RBC % Metamyelocytes Hypochromia Toxic Granulation Platelet Estimate Platelet Comment Polychromasia Poikilocytosis Anisocytosis Microcytosis Macrocytosis Spherocytes Target Cells Tear Drop Cells Ovalocytes [place] Cells Schistocytes PT with INR INR PTT (Actin FS) Fibrinogen Puncture Site ABG pH ABG pCO2 at Pt Temp ABG pO2 at Pt Temp ABG HCO3 ABG O2 Sat (Measured) ABG O2 Content ABG Base Excess Atul Test O2 Delivery Device Oxygen Flow Rate Vent Mode Vent Rate PEEP Pressure Support Vent Sodium Potassium Chloride Carbon Dioxide Anion Gap BUN Creatinine Est GFR (CKD-EPI)AfAm Est GFR (CKD-EPI)NonAf POC Glucometer 86 Random Glucose Lactic Acid Calcium Phosphorus Magnesium Iron TIBC Iron Saturation Unsaturated IBC Ferritin Total Bilirubin AST ALT Alkaline Phosphatase Creatine Kinase Troponin I Total Protein Albumin Prealbumin Triglycerides Cholesterol Total LDL Cholesterol HDL Cholesterol Beta-Hydroxybutyrate Urine Color Urine Appearance Urine pH Ur Specific [place] Urine Protein Urine Glucose (UA) Urine Ketones Urine Blood Urine Nitrite Urine Bilirubin Urine Urobilinogen Ur Leukocyte Esterase Urine WBC (Auto) Urine RBC (Auto) U Epithel Cells (Auto) Urine Bacteria (Auto) Stool Occult Blood Acetone, Qual B-Hydroxybutyrate Active Medications Generic Name Dose Route Start Last Admin Trade Name Freq PRN Reason Stop Dose Admin Acetaminophen 1,000 mg 04/09/19 03:23 04/09/19 13:07 Ofirmev Injection - IVPB 1,000 mg Q6H PRN Administration FEVER Albuterol/Ipratropium 1 amp 04/08/19 18:07 Duoneb - NEB Q6H PRN SHORTNESS OF BREATH Amino Acids 30 ml 04/09/19 10:00 04/10/19 09:54 Prosource No Carb Liquid Pkt PO 30 ml DAILY [facility] Administration Aspirin 81 mg 04/09/19 14:00 04/10/19 09:46 Ecotrin - PO 81 mg DAILY [facility] Administration Atorvastatin Calcium 40 mg 04/09/19 22:00 04/09/19 21:04 Lipitor - PO 40 mg HS [facility] Administration Chlorhexidine Gluconate 1 applic 04/08/19 22:00 04/09/19 21:04 Hibiclens For Decolonization - TP 1 applic HS [facility] Administration Chlorhexidine Gluconate 15 ml 04/08/19 22:00 04/10/19 09:54 Peridex - MM 15 ml BID [facility] Administration Dextrose 4 gm 04/08/19 18:07 Glucose Tablet - PO PRN PRN HYPOGLYCEMIA Enoxaparin Sodium 70 mg 04/08/19 22:00 04/10/19 09:46 Lovenox - SQ 70 mg BID [facility] Administration Dextrose/Lactated Ringer's 1,000 mls @ 75 mls/hr 04/08/19 18:07 04/09/19 21: 03 D5-Lr - IV 75 mls/hr ASDIR [facility] Administration Meropenem 1 gm/ Dextrose 100 mls @ 200 mls/hr 04/09/19 02:00 04/10/19 09:47 IVPB 200 mls/hr Q8H-IV [facility] Administration Insulin Aspart 1 vial 04/09/19 18:00 04/10/19 07:35 Novolog Vial Sliding Scale - SQ 4 units Q6HPO [facility] Administration Protocol Morphine Sulfate 2 mg 04/09/19 03:23 Morphine Sulfate IVPUSH Q4H PRN PAIN LEVEL 7 - 10 Mupirocin 1 applic 04/08/19 22:00 04/10/19 09:46 Bactroban Ointment (For Decolonization) - NS 04/13/19 21:59 1 applic BID [facility] Administration Nystatin 1 applic 04/08/19 22:00 04/09/19 21:14 Mycostatin Ointment - TP 1 applic BID [facility] Administration Ondansetron HCl 4 mg 04/08/19 18:07 Zofran Injection IVPUSH Q6H PRN NAUSEA AND/OR VOMITING Pantoprazole Sodium 40 mg 04/08/19 22:00 04/10/19 09:54 Protonix Iv IVPUSH 40 mg BID [facility] Administration Vancomycin HCl 125 mg 04/09/19 00:00 04/10/19 07:32 Vancomycin Oral Solution PO 125 mg Q6HPO [facility] Administration ASSESSMENT/PLAN:
[2019-04-10 12:33] LABS: ANISOCYTOSIS 1+; MACROCYTOSIS 0; OVALOCYTE 1+; PLATELET ESTIMATE INCREASED; TEAR DROP CELLS 1+
[2019-04-10] MEDS: NYSTATIN 100000 UNIT/GM TOPICAL OINTMENT 15 GM TUBE TP SCH ×2 (12:54→21:55)
--- NOTE | 2019-04-10 14:47 | PN ---
Progress Note, Physician History of Present Illness: Pt is alert/responsive, on ventilator. Had recurrence of fevers last night. Today is afebrile, vitals. No current distress. New lab results noted, events reviewed. - Current Medication List Current Medications: Active Medications Acetaminophen (Ofirmev Injection -) 1,000 mg IVPB Q6H PRN PRN Reason: FEVER Last Admin: 04/09/19 13:07 Dose: 1,000 mg Albuterol/Ipratropium (Duoneb -) 1 amp NEB Q6H PRN PRN Reason: SHORTNESS OF BREATH Amino Acids (Prosource No Carb Liquid Pkt) 30 ml PO DAILY [facility] Last Admin: 04/10/19 09:54 Dose: 30 ml Aspirin (Ecotrin -) 81 mg PO DAILY [facility] Last Admin: 04/10/19 09:46 Dose: 81 mg Atorvastatin Calcium (Lipitor -) 40 mg PO HS [facility] Last Admin: 04/09/19 21:04 Dose: 40 mg Chlorhexidine Gluconate (Hibiclens For Decolonization -) 1 applic TP HS [facility] Last Admin: 04/09/19 21:04 Dose: 1 applic Chlorhexidine Gluconate (Peridex -) 15 ml MM BID [facility] Last Admin: 04/10/19 09:54 Dose: 15 ml Dextrose (Glucose Tablet -) 4 gm PO PRN PRN PRN Reason: HYPOGLYCEMIA Enoxaparin Sodium (Lovenox -) 70 mg SQ BID [facility] Last Admin: 04/10/19 09:46 Dose: 70 mg Dextrose/Lactated Ringer's (D5-Lr -) 1,000 mls @ 75 mls/hr IV ASDIR [facility] Last Admin: 04/09/19 21:03 Dose: 75 mls/hr Meropenem 1 gm/ Dextrose 100 mls @ 200 mls/hr IVPB Q8H-IV [facility] Last Admin: 04/10/19 09:47 Dose: 200 mls/hr Insulin Aspart (Novolog Vial Sliding Scale -) 1 vial SQ Q6HPO [facility]; Protocol Last Admin: 04/10/19 12:15 Dose: Not Given Morphine Sulfate (Morphine Sulfate) 2 mg IVPUSH Q4H PRN PRN Reason: PAIN LEVEL 7 - 10 Mupirocin (Bactroban Ointment (For Decolonization) -) 1 applic NS BID [facility] Stop: 04/13/19 21:59 Last Admin: 04/10/19 09:46 Dose: 1 applic Nystatin (Mycostatin Ointment -) 1 applic TP BID [facility] Last Admin: 04/10/19 12:54 Dose: 1 applic Ondansetron HCl (Zofran Injection) 4 mg IVPUSH Q6H PRN PRN Reason: NAUSEA AND/OR VOMITING Pantoprazole Sodium (Protonix Iv) 40 mg IVPUSH BID [facility] Last Admin: 04/10/19 09:54 Dose: 40 mg Vancomycin HCl (Vancomycin Oral Solution) 125 mg PO Q6HPO [facility] Last Admin: 04/10/19 12:55 Dose: 125 mg - Objective Vital Signs: Vital Signs Temperature 98.3 F 04/10/19 14:00 Pulse Rate 88 04/10/19 14:00 Respiratory Rate 28 H 04/10/19 14:00 Blood Pressure 119/74 04/10/19 14:00 O2 Sat by Pulse Oximetry (%) 100 04/10/19 10:00 Constitutional: Yes: No Distress, Calm Eyes: Yes: Conjunctiva Clear Cardiovascular: Yes: Regular Rate and Rhythm Respiratory: Yes: Mechanically Ventilated Gastrointestinal: Yes: Normal Bowel Sounds, Soft Genitourinary: Yes: Lott Present Peripheral Pulses WNL: Yes Integumentary: Yes: WNL Wound/Incision: Yes: Other (abd wound vac, minimal drainage) Labs: CBC, BMP 04/10/19 06:00 04/10/19 06:00 INR, PTT INR 0.95 (0.83-1.09) 03/26/19 06:00 Fibrinogen 359.0 mg/dL (238-498) 03/19/19 23:15 Laboratory Results - last 24 hr 03/17/19 03/17/19 03/17/19 05:20 05:20 05:20 WBC 16.2 H RBC 3.60 Hgb 8.7 L Hct 27.2 L MCV 75.4 L MCH 24.0 L MCHC 31.9 L RDW 24.5 H Plt Count 150 D MPV 9.4 Absolute Neuts (auto) 14.6 H Total Counted Neutrophils % 89.6 H Neutrophils % (Manual) 94.0 H Band Neutrophils % 3.0 Lymphocytes % 8.4 D Lymphocytes % (Manual) 2.0 L D Monocytes % 1.6 L Monocytes % (Manual) 0 L D Eosinophils % 0.3 D Eosinophils % (Manual) 0.0 D Basophils % 0.1 Basophils % (Manual) 0.0 Myelocytes % (Man) 0 D Promyelocytes % (Man) 0 Blast Cells % (Manual) 0 Nucleated RBC % 1 H Metamyelocytes 0 Hypochromia 1+ Toxic Granulation Platelet Estimate Decreased Platelet Comment Polychromasia 0 Poikilocytosis 1+ Anisocytosis 1+ Microcytosis 1+ Macrocytosis 0 Spherocytes Target Cells 1+ Tear Drop Cells Ovalocytes 1+ Stomatocytes Wayne Cells Acanthocytes (Spur) Fragmented RBCs Schistocytes PT with INR INR PTT (Actin FS) 24.9 L Fibrinogen Puncture Site ABG pH ABG pCO2 at Pt Temp ABG pO2 at Pt Temp ABG HCO3 ABG O2 Sat (Measured) ABG O2 Content ABG Base Excess Atul Test O2 Delivery Device Oxygen Flow Rate Vent Mode Vent Rate PEEP Pressure Support Vent Sodium 141 Potassium 3.8 Chloride 109 H Carbon Dioxide 22 Anion Gap 10 BUN 13.0 Creatinine 0.4 L Est GFR (CKD-EPI)AfAm 141.75 Est GFR (CKD-EPI)NonAf 122.30 POC Glucometer Random Glucose 244 H Lactic Acid Calcium 6.4 L* Phosphorus 1.0 L* Magnesium 1.8 Iron TIBC Iron Saturation Unsaturated IBC Ferritin Total Bilirubin 0.3 AST 24 ALT 10 L Alkaline Phosphatase 145 H Creatine Kinase Troponin I Total Protein 4.0 L Albumin 1.2 L Prealbumin Triglycerides Cholesterol Total LDL Cholesterol HDL Cholesterol Beta-Hydroxybutyrate Urine Color Urine Appearance Urine pH Ur Specific Wrens Urine Protein Urine Glucose (UA) Urine Ketones Urine Blood Urine Nitrite Urine Bilirubin Urine Urobilinogen Ur Leukocyte Esterase Urine WBC (Auto) Urine RBC (Auto) U Epithel Cells (Auto) Urine Bacteria (Auto) Stool Occult Blood Acetone, Qual B-Hydroxybutyrate 03/17/19 03/17/19 03/17/19 05:29 12:19 17:43 WBC RBC Hgb Hct MCV MCH MCHC RDW Plt Count MPV Absolute Neuts (auto) Total Counted Neutrophils % Neutrophils % (Manual) Band Neutrophils % Lymphocytes % Lymphocytes % (Manual) Monocytes % Monocytes % (Manual) Eosinophils % Eosinophils % (Manual) Basophils % Basophils % (Manual) Myelocytes % (Man) Promyelocytes % (Man) Blast Cells % (Manual) Nucleated RBC % Metamyelocytes Hypochromia Toxic Granulation Platelet Estimate Platelet Comment Polychromasia Poikilocytosis Anisocytosis Microcytosis Macrocytosis Spherocytes Target Cells Tear Drop Cells Ovalocytes Stomatocytes Wayne Cells Acanthocytes (Spur) Fragmented RBCs Schistocytes PT with INR INR PTT (Actin FS) Fibrinogen Puncture Site ABG pH ABG pCO2 at Pt Temp ABG pO2 at Pt Temp ABG HCO3 ABG O2 Sat (Measured) ABG O2 Content ABG Base Excess Atul Test O2 Delivery Device Oxygen Flow Rate Vent Mode Vent Rate PEEP Pressure Support Vent Sodium Potassium Chloride Carbon Dioxide Anion Gap BUN Creatinine Est GFR (CKD-EPI)AfAm Est GFR (CKD-EPI)NonAf POC Glucometer 229 156 168 Random Glucose Lactic Acid Calcium Phosphorus Magnesium Iron TIBC Iron Saturation Unsaturated IBC Ferritin Total Bilirubin AST ALT Alkaline Phosphatase Creatine Kinase Troponin I Total Protein Albumin Prealbumin Triglycerides Cholesterol Total LDL Cholesterol HDL Cholesterol Beta-Hydroxybutyrate Urine Color Urine Appearance Urine pH Ur Specific Wrens Urine Protein Urine Glucose (UA) Urine Ketones Urine Blood Urine Nitrite Urine Bilirubin Urine Urobilinogen Ur Leukocyte Esterase Urine WBC (Auto) Urine RBC (Auto) U Epithel Cells (Auto) Urine Bacteria (Auto) Stool Occult Blood Acetone, Qual B-Hydroxybutyrate 03/17/19 03/18/19 03/18/19 21:43 05:30 05:30 WBC 7.8 RBC 3.66 Hgb 9.0 L Hct 27.7 L MCV 75.6 L MCH 24.5 L MCHC 32.4 RDW 24.3 H Plt Count 114 L D MPV 9.5 Absolute Neuts (auto) 6.2 Total Counted Neutrophils % 79.9 Neutrophils % (Manual) 76.0 Band Neutrophils % 5.0 Lymphocytes % 16.8 D Lymphocytes % (Manual) 12.0 D Monocytes % 1.8 L Monocytes % (Manual) 0 L Eosinophils % 1.2 D Eosinophils % (Manual) 2.0 D Basophils % 0.3 Basophils % (Manual) 0.0 Myelocytes % (Man) 0 Promyelocytes % (Man) 0 Blast Cells % (Manual) 0 Nucleated RBC % 0 Metamyelocytes 1 D Hypochromia 1+ Toxic Granulation 2+ Platelet Estimate Decreased Platelet Comment Present Polychromasia 1+ Poikilocytosis 1+ Anisocytosis 2+ Microcytosis 1+ Macrocytosis 0 Spherocytes 1+ Target Cells 1+ Tear Drop Cells 1+ Ovalocytes Stomatocytes Wayne Cells 1+ Acanthocytes (Spur) Fragmented RBCs Schistocytes PT with INR INR PTT (Actin FS) 27.1 Fibrinogen Puncture Site ABG pH ABG pCO2 at Pt Temp ABG pO2 at Pt Temp ABG HCO3 ABG O2 Sat (Measured) ABG O2 Content ABG Base Excess Atul Test O2 Delivery Device Oxygen Flow Rate Vent Mode Vent Rate PEEP Pressure Support Vent Sodium Potassium Chloride Carbon Dioxide Anion Gap BUN Creatinine Est GFR (CKD-EPI)AfAm Est GFR (CKD-EPI)NonAf POC Glucometer 89 Random Glucose Lactic Acid Calcium Phosphorus Magnesium Iron TIBC Iron Saturation Unsaturated IBC Ferritin Total Bilirubin AST ALT Alkaline Phosphatase Creatine Kinase Troponin I Total Protein Albumin Prealbumin Triglycerides Cholesterol Total LDL Cholesterol HDL Cholesterol Beta-Hydroxybutyrate Urine Color Urine Appearance Urine pH Ur Specific Wrens Urine Protein Urine Glucose (UA) Urine Ketones Urine Blood Urine Nitrite Urine Bilirubin Urine Urobilinogen Ur Leukocyte Esterase Urine WBC (Auto) Urine RBC (Auto) U Epithel Cells (Auto) Urine Bacteria (Auto) Stool Occult Blood Acetone, Qual B-Hydroxybutyrate 03/18/19 03/18/19 03/18/19 05:30 05:42 10:53 WBC RBC Hgb Hct MCV MCH MCHC RDW Plt Count MPV Absolute Neuts (auto) Total Counted Neutrophils % Neutrophils % (Manual) Band Neutrophils % Lymphocytes % Lymphocytes % (Manual) Monocytes % Monocytes % (Manual) Eosinophils % Eosinophils % (Manual) Basophils % Basophils % (Manual) Myelocytes % (Man) Promyelocytes % (Man) Blast Cells % (Manual) Nucleated RBC % Metamyelocytes Hypochromia Toxic Granulation Platelet Estimate Platelet Comment Polychromasia Poikilocytosis Anisocytosis Microcytosis Macrocytosis Spherocytes Target Cells Tear Drop Cells Ovalocytes Stomatocytes Jose Antonio Cells Acanthocytes (Spur) Fragmented RBCs Schistocytes PT with INR INR PTT (Actin FS) Fibrinogen Puncture Site ABG pH ABG pCO2 at Pt Temp ABG pO2 at Pt Temp ABG HCO3 ABG O2 Sat (Measured) ABG O2 Content ABG Base Excess Atul Test O2 Delivery Device Oxygen Flow Rate Vent Mode Vent Rate PEEP Pressure Support Vent Sodium 143 Potassium 3.1 L Chloride 107 Carbon Dioxide 24 Anion Gap 11 BUN 9.0 Creatinine 0.4 L Est GFR (CKD-EPI)AfAm 141.75 Est GFR (CKD-EPI)NonAf 122.30 POC Glucometer 201 169 Random Glucose 218 H Lactic Acid Calcium 6.5 L* Phosphorus 1.6 L Magnesium 1.5 L Iron TIBC Iron Saturation Unsaturated IBC Ferritin Total Bilirubin 0.5 AST 28 ALT 8 L Alkaline Phosphatase 276 H Creatine Kinase Troponin I Total Protein 3.9 L Albumin 1.2 L Prealbumin Triglycerides Cholesterol Total LDL Cholesterol HDL Cholesterol Beta-Hydroxybutyrate Urine Color Urine Appearance Urine pH Ur Specific Wrens Urine Protein Urine Glucose (UA) Urine Ketones Urine Blood Urine Nitrite Urine Bilirubin Urine Urobilinogen Ur Leukocyte Esterase Urine WBC (Auto) Urine RBC (Auto) U Epithel Cells (Auto) Urine Bacteria (Auto) Stool Occult Blood Acetone, Qual B-Hydroxybutyrate 03/18/19 03/18/19 03/18/19 17:00 17:14 23:04 WBC RBC Hgb Hct MCV MCH MCHC RDW Plt Count MPV Absolute Neuts (auto) Total Counted Neutrophils % Neutrophils % (Manual) Band Neutrophils % Lymphocytes % Lymphocytes % (Manual) Monocytes % Monocytes % (Manual) Eosinophils % Eosinophils % (Manual) Basophils % Basophils % (Manual) Myelocytes % (Man) Promyelocytes % (Man) Blast Cells % (Manual) Nucleated RBC % Metamyelocytes Hypochromia Toxic Granulation Platelet Estimate Platelet Comment Polychromasia Poikilocytosis Anisocytosis Microcytosis Macrocytosis Spherocytes Target Cells Tear Drop Cells Ovalocytes Stomatocytes Jose Antonio Cells Acanthocytes (Spur) Fragmented RBCs Schistocytes PT with INR INR PTT (Actin FS) Fibrinogen Puncture Site ABG pH ABG pCO2 at Pt Temp ABG pO2 at Pt Temp ABG HCO3 ABG O2 Sat (Measured) ABG O2 Content ABG Base Excess Autl Test O2 Delivery Device Oxygen Flow Rate Vent Mode Vent Rate PEEP Pressure Support Vent Sodium 145 Potassium 3.0 L Chloride 107 Carbon Dioxide 19 L Anion Gap 18 H BUN 6.8 L Creatinine 0.3 L Est GFR (CKD-EPI)AfAm 155.82 Est GFR (CKD-EPI)NonAf 134.44 POC Glucometer 299 185 Random Glucose 303 H Lactic Acid Calcium 6.7 L* Phosphorus 3.5 Magnesium 2.0 Iron TIBC Iron Saturation Unsaturated IBC Ferritin Total Bilirubin AST ALT Alkaline Phosphatase Creatine Kinase Troponin I Total Protein Albumin Prealbumin Triglycerides Cholesterol Total LDL Cholesterol HDL Cholesterol Beta-Hydroxybutyrate Urine Color Urine Appearance Urine pH Ur Specific Wrens Urine Protein Urine Glucose (UA) Urine Ketones Urine Blood Urine Nitrite Urine Bilirubin Urine Urobilinogen Ur Leukocyte Esterase Urine WBC (Auto) Urine RBC (Auto) U Epithel Cells (Auto) Urine Bacteria (Auto) Stool Occult Blood Acetone, Qual B-Hydroxybutyrate 03/19/19 03/19/19 03/19/19 05:00 05:00 05:00 WBC 8.0 RBC 3.37 L Hgb 8.3 L Hct 25.8 L MCV 76.5 L MCH 24.7 L MCHC 32.3 RDW 24.0 H Plt Count 94 L MPV 10.2 Absolute Neuts (auto) 6.9 Total Counted Neutrophils % 87.4 H Neutrophils % (Manual) 81.6 Band Neutrophils % 0.0 Lymphocytes % 9.3 D Lymphocytes % (Manual) 10.2 Monocytes % 1.8 L Monocytes % (Manual) 2 L D Eosinophils % 0.8 Eosinophils % (Manual) 2.1 Basophils % 0.7 Basophils % (Manual) 0.0 Myelocytes % (Man) 0 Promyelocytes % (Man) 0 Blast Cells % (Manual) 0 Nucleated RBC % 0 Metamyelocytes 3 H D Hypochromia 0 Toxic Granulation Platelet Estimate Decreased Platelet Comment Polychromasia 1+ Poikilocytosis 2+ Anisocytosis 1+ Microcytosis 1+ Macrocytosis 0 Spherocytes Target Cells Tear Drop Cells Ovalocytes 1+ Stomatocytes Wayne Cells Acanthocytes (Spur) Fragmented RBCs Schistocytes 1+ PT with INR INR PTT (Actin FS) 30.7 Fibrinogen Puncture Site ABG pH ABG pCO2 at Pt Temp ABG pO2 at Pt Temp ABG HCO3 ABG O2 Sat (Measured) ABG O2 Content ABG Base Excess Atul Test O2 Delivery Device Oxygen Flow Rate Vent Mode Vent Rate PEEP Pressure Support Vent Sodium 144 Potassium 2.7 L* Chloride 106 Carbon Dioxide 19 L Anion Gap 18 H BUN 6.8 L Creatinine 0.4 L Est GFR (CKD-EPI)AfAm 141.75 Est GFR (CKD-EPI)NonAf 122.30 POC Glucometer Random Glucose 335 H Lactic Acid Calcium 6.5 L* Phosphorus 1.7 L Magnesium 1.7 L Iron TIBC Iron Saturation Unsaturated IBC Ferritin Total Bilirubin 0.4 AST 34 ALT 10 L Alkaline Phosphatase 363 H Creatine Kinase Troponin I Total Protein 4.1 L Albumin 1.2 L Prealbumin Triglycerides Cholesterol Total LDL Cholesterol HDL Cholesterol Beta-Hydroxybutyrate Urine Color Urine Appearance Urine pH Ur Specific Wrens Urine Protein Urine Glucose (UA) Urine Ketones Urine Blood Urine Nitrite Urine Bilirubin Urine Urobilinogen Ur Leukocyte Esterase Urine WBC (Auto) Urine RBC (Auto) U Epithel Cells (Auto) Urine Bacteria (Auto) Stool Occult Blood Acetone, Qual B-Hydroxybutyrate 03/19/19 03/19/19 03/19/19 05:00 05:26 06:20 WBC 8.9 RBC 3.78 Hgb 9.1 L Hct 30.8 L D MCV 81.4 MCH 24.1 L MCHC 29.6 L RDW 24.5 H Plt Count 87 L MPV 9.8 Absolute Neuts (auto) Total Counted Neutrophils % Neutrophils % (Manual) Band Neutrophils % Lymphocytes % Lymphocytes % (Manual) Monocytes % Monocytes % (Manual) Eosinophils % Eosinophils % (Manual) Basophils % Basophils % (Manual) Myelocytes % (Man) Promyelocytes % (Man) Blast Cells % (Manual) Nucleated RBC % Metamyelocytes Hypochromia Toxic Granulation Platelet Estimate Platelet Comment Polychromasia Poikilocytosis Anisocytosis Microcytosis Macrocytosis Spherocytes Target Cells Tear Drop Cells Ovalocytes Stomatocytes Jose Antonio Cells Acanthocytes (Spur) Fragmented RBCs Schistocytes PT with INR INR PTT (Actin FS) Fibrinogen Puncture Site ABG pH ABG pCO2 at Pt Temp ABG pO2 at Pt Temp ABG HCO3 ABG O2 Sat (Measured) ABG O2 Content ABG Base Excess Atul Test O2 Delivery Device Oxygen Flow Rate Vent Mode Vent Rate PEEP Pressure Support Vent Sodium Potassium Chloride Carbon Dioxide Anion Gap BUN Creatinine Est GFR (CKD-EPI)AfAm Est GFR (CKD-EPI)NonAf POC Glucometer 332 Random Glucose Lactic Acid Calcium Phosphorus Magnesium Iron TIBC Iron Saturation Unsaturated IBC Ferritin Total Bilirubin AST ALT Alkaline Phosphatase Creatine Kinase Troponin I Total Protein Albumin Prealbumin 7.0 L Triglycerides Cholesterol Total LDL Cholesterol HDL Cholesterol Beta-Hydroxybutyrate Urine Color Urine Appearance Urine pH Ur Specific Wrens Urine Protein Urine Glucose (UA) Urine Ketones Urine Blood Urine Nitrite Urine Bilirubin Urine Urobilinogen Ur Leukocyte Esterase Urine WBC (Auto) Urine RBC (Auto) U Epithel Cells (Auto) Urine Bacteria (Auto) Stool Occult Blood Acetone, Qual B-Hydroxybutyrate 03/19/19 03/19/19 03/19/19 06:20 06:20 06:20 WBC RBC Hgb Hct MCV MCH MCHC RDW Plt Count MPV Absolute Neuts (auto) Total Counted Neutrophils % Neutrophils % (Manual) Band Neutrophils % Lymphocytes % Lymphocytes % (Manual) Monocytes % Monocytes % (Manual) Eosinophils % Eosinophils % (Manual) Basophils % Basophils % (Manual) Myelocytes % (Man) Promyelocytes % (Man) Blast Cells % (Manual) Nucleated RBC % Metamyelocytes Hypochromia Toxic Granulation Platelet Estimate Platelet Comment Polychromasia Poikilocytosis Anisocytosis Microcytosis Macrocytosis Spherocytes Target Cells Tear Drop Cells Ovalocytes Stomatocytes Jose Antonio Cells Acanthocytes (Spur) Fragmented RBCs Schistocytes PT with INR INR PTT (Actin FS) Fibrinogen Puncture Site ABG pH ABG pCO2 at Pt Temp ABG pO2 at Pt Temp ABG HCO3 ABG O2 Sat (Measured) ABG O2 Content ABG Base Excess Atul Test O2 Delivery Device Oxygen Flow Rate Vent Mode Vent Rate PEEP Pressure Support Vent Sodium 146 H Potassium 2.9 L* Chloride 106 Carbon Dioxide 16 L Anion Gap 24 H BUN 7.8 Creatinine 0.7 Est GFR (CKD-EPI)AfAm 117.91 Est GFR (CKD-EPI)NonAf 101.74 POC Glucometer Random Glucose 371 H Lactic Acid 8.1 H* Calcium 7.0 L Phosphorus Magnesium 2.3 Iron TIBC Iron Saturation Unsaturated IBC Ferritin Total Bilirubin AST ALT Alkaline Phosphatase Creatine Kinase 71 Troponin I 0.53 H Total Protein Albumin Prealbumin Triglycerides Cholesterol Total LDL Cholesterol HDL Cholesterol Beta-Hydroxybutyrate Urine Color Urine Appearance Urine pH Ur Specific Wrens Urine Protein Urine Glucose (UA) Urine Ketones Urine Blood Urine Nitrite Urine Bilirubin Urine Urobilinogen Ur Leukocyte Esterase Urine WBC (Auto) Urine RBC (Auto) U Epithel Cells (Auto) Urine Bacteria (Auto) Stool Occult Blood Acetone, Qual B-Hydroxybutyrate 03/19/19 03/19/19 03/19/19 06:22 06:40 06:40 WBC RBC Hgb Hct MCV MCH MCHC RDW Plt Count MPV Absolute Neuts (auto) Total Counted Neutrophils % Neutrophils % (Manual) Band Neutrophils % Lymphocytes % Lymphocytes % (Manual) Monocytes % Monocytes % (Manual) Eosinophils % Eosinophils % (Manual) Basophils % Basophils % (Manual) Myelocytes % (Man) Promyelocytes % (Man) Blast Cells % (Manual) Nucleated RBC % Metamyelocytes Hypochromia Toxic Granulation Platelet Estimate Platelet Comment Polychromasia Poikilocytosis Anisocytosis Microcytosis Macrocytosis Spherocytes Target Cells Tear Drop Cells Ovalocytes Stomatocytes Jose Antonio Cells Acanthocytes (Spur) Fragmented RBCs Schistocytes PT with INR INR PTT (Actin FS) Fibrinogen Puncture Site Right radial Right radial ABG pH 7.12 L* 7.04 L* ABG pCO2 at Pt Temp 57.3 H 58.1 H ABG pO2 at Pt Temp 131 H 67.5 L ABG HCO3 17.8 L 15.0 L ABG O2 Sat (Measured) 96.9 78.5 L ABG O2 Content 12.4 10.7 ABG Base Excess -11.0 L -15.1 L Atul Test Positive Positive O2 Delivery Device Oxygen Flow Rate 100 100% Vent Mode Vol/ac A/c Vent Rate 14 14 PEEP 5.0 5.0 Pressure Support Vent 400 400 Sodium Potassium Chloride Carbon Dioxide Anion Gap BUN Creatinine Est GFR (CKD-EPI)AfAm Est GFR (CKD-EPI)NonAf POC Glucometer 312 Random Glucose Lactic Acid Calcium Phosphorus Magnesium Iron TIBC Iron Saturation Unsaturated IBC Ferritin Total Bilirubin AST ALT Alkaline Phosphatase Creatine Kinase Troponin I Total Protein Albumin Prealbumin Triglycerides Cholesterol Total LDL Cholesterol HDL Cholesterol Beta-Hydroxybutyrate Urine Color Urine Appearance Urine pH Ur Specific Wrens Urine Protein Urine Glucose (UA) Urine Ketones Urine Blood Urine Nitrite Urine Bilirubin Urine Urobilinogen Ur Leukocyte Esterase Urine WBC (Auto) Urine RBC (Auto) U Epithel Cells (Auto) Urine Bacteria (Auto) Stool Occult Blood Acetone, Qual B-Hydroxybutyrate 03/19/19 03/19/19 03/19/19 09:11 10:41 15:30 WBC RBC Hgb Hct MCV MCH MCHC RDW Plt Count MPV Absolute Neuts (auto) Total Counted Neutrophils % Neutrophils % (Manual) Band Neutrophils % Lymphocytes % Lymphocytes % (Manual) Monocytes % Monocytes % (Manual) Eosinophils % Eosinophils % (Manual) Basophils % Basophils % (Manual) Myelocytes % (Man) Promyelocytes % (Man) Blast Cells % (Manual) Nucleated RBC % Metamyelocytes Hypochromia Toxic Granulation Platelet Estimate Platelet Comment Polychromasia Poikilocytosis Anisocytosis Microcytosis Macrocytosis Spherocytes Target Cells Tear Drop Cells Ovalocytes Stomatocytes Wayne Cells Acanthocytes (Spur) Fragmented RBCs Schistocytes PT with INR INR PTT (Actin FS) Fibrinogen Puncture Site Right radial ABG pH 7.23 L ABG pCO2 at Pt Temp 54.7 H ABG pO2 at Pt Temp 86.4 ABG HCO3 21.9 L ABG O2 Sat (Measured) 93.7 L ABG O2 Content 11.6 ABG Base Excess -5.2 L Atul Test Positive O2 Delivery Device Oxygen Flow Rate 100 Vent Mode Vol/ac Vent Rate 14 PEEP 5.0 Pressure Support Vent 400 Sodium Potassium Chloride Carbon Dioxide Anion Gap BUN Creatinine Est GFR (CKD-EPI)AfAm Est GFR (CKD-EPI)NonAf POC Glucometer 303 Random Glucose Lactic Acid 2.3 H* Calcium Phosphorus Magnesium Iron TIBC Iron Saturation Unsaturated IBC Ferritin Total Bilirubin AST ALT Alkaline Phosphatase Creatine Kinase Troponin I Total Protein Albumin Prealbumin Triglycerides Cholesterol Total LDL Cholesterol HDL Cholesterol Beta-Hydroxybutyrate Urine Color Urine Appearance Urine pH Ur Specific Wrens Urine Protein Urine Glucose (UA) Urine Ketones Urine Blood Urine Nitrite Urine Bilirubin Urine Urobilinogen Ur Leukocyte Esterase Urine WBC (Auto) Urine RBC (Auto) U Epithel Cells (Auto) Urine Bacteria (Auto) Stool Occult Blood Acetone, Qual B-Hydroxybutyrate 03/19/19 03/19/19 03/19/19 15:40 15:40 17:26 WBC 11.7 H RBC 3.31 L Hgb 7.9 L Hct 25.2 L D MCV 76.1 L MCH 23.8 L MCHC 31.3 L RDW 24.4 H Plt Count 125 L D MPV 9.9 Absolute Neuts (auto) 10.7 H Total Counted 100 Neutrophils % 92.1 H Neutrophils % (Manual) 77.0 Band Neutrophils % 3.0 Lymphocytes % 5.8 L D Lymphocytes % (Manual) 14.0 D Monocytes % 2.0 L Monocytes % (Manual) 3 L Eosinophils % 0.0 D Eosinophils % (Manual) Basophils % 0.1 Basophils % (Manual) Myelocytes % (Man) 3 H D Promyelocytes % (Man) Blast Cells % (Manual) Nucleated RBC % 1 H Metamyelocytes Hypochromia 1+ Toxic Granulation Platelet Estimate Adequate Platelet Comment Polychromasia Poikilocytosis Anisocytosis 3+ Microcytosis Macrocytosis Spherocytes Target Cells Tear Drop Cells Ovalocytes Stomatocytes Jose Antonio Cells Acanthocytes (Spur) Fragmented RBCs Schistocytes 1+ PT with INR INR PTT (Actin FS) Fibrinogen Puncture Site ABG pH ABG pCO2 at Pt Temp ABG pO2 at Pt Temp ABG HCO3 ABG O2 Sat (Measured) ABG O2 Content ABG Base Excess Atul Test O2 Delivery Device Oxygen Flow Rate Vent Mode Vent Rate PEEP Pressure Support Vent Sodium 146 H Potassium 2.9 L* Chloride 107 Carbon Dioxide 29 Anion Gap 10 BUN 6.9 L Creatinine 0.7 Est GFR (CKD-EPI)AfAm 117.91 Est GFR (CKD-EPI)NonAf 101.74 POC Glucometer 315 Random Glucose 293 H Lactic Acid Calcium 6.9 L* Phosphorus Magnesium 1.8 Iron TIBC Iron Saturation Unsaturated IBC Ferritin Total Bilirubin 0.4 AST 49 H ALT 17 Alkaline Phosphatase 586 H Creatine Kinase 109 Troponin I 1.01 H* Total Protein 4.5 L Albumin 1.3 L Prealbumin Triglycerides Cholesterol Total LDL Cholesterol HDL Cholesterol Beta-Hydroxybutyrate Urine Color Urine Appearance Urine pH Ur Specific Wrens Urine Protein Urine Glucose (UA) Urine Ketones Urine Blood Urine Nitrite Urine Bilirubin Urine Urobilinogen Ur Leukocyte Esterase Urine WBC (Auto) Urine RBC (Auto) U Epithel Cells (Auto) Urine Bacteria (Auto) Stool Occult Blood Acetone, Qual B-Hydroxybutyrate 03/19/19 03/19/19 03/19/19 21:35 21:35 21:45 WBC 8.1 RBC 2.86 L Hgb 6.9 L* Hct 21.4 L D MCV 75.0 L MCH 24.0 L MCHC 32.0 RDW 24.0 H Plt Count 92 L D MPV 9.7 Absolute Neuts (auto) 6.9 Total Counted 100 Neutrophils % 85.0 H Neutrophils % (Manual) 74.0 Band Neutrophils % 7.0 Lymphocytes % 12.1 D Lymphocytes % (Manual) 12.0 Monocytes % 2.7 L Monocytes % (Manual) 4 Eosinophils % 0.1 D Eosinophils % (Manual) Basophils % 0.1 Basophils % (Manual) Myelocytes % (Man) 1 D Promyelocytes % (Man) Blast Cells % (Manual) Nucleated RBC % 1 H Metamyelocytes 1 D Hypochromia 2+ Toxic Granulation Platelet Estimate Decreased Platelet Comment Polychromasia 1+ Poikilocytosis Anisocytosis 2+ Microcytosis Macrocytosis Spherocytes Target Cells Tear Drop Cells Ovalocytes Stomatocytes Jose Antonio Cells Acanthocytes (Spur) Fragmented RBCs Schistocytes PT with INR INR PTT (Actin FS) Fibrinogen Puncture Site Right radial ABG pH 7.48 H ABG pCO2 at Pt Temp 40.8 ABG pO2 at Pt Temp 264 H ABG HCO3 29.9 H ABG O2 Sat (Measured) 99.8 H ABG O2 Content 10.1 ABG Base Excess 6.2 H Atul Test Positive O2 Delivery Device Ventilater Oxygen Flow Rate 80% Vent Mode Vent Rate 14 PEEP 5.0 Pressure Support Vent 400 Sodium Potassium Chloride Carbon Dioxide Anion Gap BUN Creatinine Est GFR (CKD-EPI)AfAm Est GFR (CKD-EPI)NonAf POC Glucometer 192 Random Glucose Lactic Acid Calcium Phosphorus Magnesium Iron TIBC Iron Saturation Unsaturated IBC Ferritin Total Bilirubin AST ALT Alkaline Phosphatase Creatine Kinase Troponin I Total Protein Albumin Prealbumin Triglycerides Cholesterol Total LDL Cholesterol HDL Cholesterol Beta-Hydroxybutyrate Urine Color Urine Appearance Urine pH Ur Specific Wrens Urine Protein Urine Glucose (UA) Urine Ketones Urine Blood Urine Nitrite Urine Bilirubin Urine Urobilinogen Ur Leukocyte Esterase Urine WBC (Auto) Urine RBC (Auto) U Epithel Cells (Auto) Urine Bacteria (Auto) Stool Occult Blood Acetone, Qual B-Hydroxybutyrate 03/19/19 03/19/19 03/19/19 23:15 23:15 23:15 WBC RBC Hgb Hct MCV MCH MCHC RDW Plt Count MPV Absolute Neuts (auto) Total Counted Neutrophils % Neutrophils % (Manual) Band Neutrophils % Lymphocytes % Lymphocytes % (Manual) Monocytes % Monocytes % (Manual) Eosinophils % Eosinophils % (Manual) Basophils % Basophils % (Manual) Myelocytes % (Man) Promyelocytes % (Man) Blast Cells % (Manual) Nucleated RBC % Metamyelocytes Hypochromia Toxic Granulation Platelet Estimate Platelet Comment Polychromasia Poikilocytosis Anisocytosis Microcytosis Macrocytosis Spherocytes Target Cells Tear Drop Cells Ovalocytes Stomatocytes Wayne Cells Acanthocytes (Spur) Fragmented RBCs Schistocytes PT with INR 17.70 H INR 1.49 H PTT (Actin FS) 36.3 Fibrinogen 359.0 Puncture Site ABG pH ABG pCO2 at Pt Temp ABG pO2 at Pt Temp ABG HCO3 ABG O2 Sat (Measured) ABG O2 Content ABG Base Excess Atul Test O2 Delivery Device Oxygen Flow Rate Vent Mode Vent Rate PEEP Pressure Support Vent Sodium 146 H Potassium 3.1 L Chloride 108 H Carbon Dioxide 32 Anion Gap 6 L BUN 7.1 Creatinine 0.6 Est GFR (CKD-EPI)AfAm 124.05 Est GFR (CKD-EPI)NonAf 107.03 POC Glucometer Random Glucose 227 H Lactic Acid Calcium 6.4 L* Phosphorus Magnesium Iron TIBC Iron Saturation Unsaturated IBC Ferritin Total Bilirubin 0.4 AST 37 ALT 13 Alkaline Phosphatase 460 H Creatine Kinase Troponin I 1.94 H* Total Protein 4.0 L Albumin 1.2 L Prealbumin Triglycerides Cholesterol Total LDL Cholesterol HDL Cholesterol Beta-Hydroxybutyrate Urine Color Urine Appearance Urine pH Ur Specific Wrens Urine Protein Urine Glucose (UA) Urine Ketones Urine Blood Urine Nitrite Urine Bilirubin Urine Urobilinogen Ur Leukocyte Esterase Urine WBC (Auto) Urine RBC (Auto) U Epithel Cells (Auto) Urine Bacteria (Auto) Stool Occult Blood Acetone, Qual B-Hydroxybutyrate 03/19/19 03/20/19 03/20/19 23:15 05:30 05:30 WBC 9.9 RBC 2.90 L Hgb 7.1 L Hct 21.8 L MCV 75.3 L MCH 24.5 L MCHC 32.5 RDW 24.3 H Plt Count 72 L D MPV 9.3 Absolute Neuts (auto) 8.4 H Total Counted Neutrophils % 84.5 H Neutrophils % (Manual) 81.0 Band Neutrophils % 1.0 Lymphocytes % 12.6 Lymphocytes % (Manual) 11.0 Monocytes % 1.9 L Monocytes % (Manual) 2 L Eosinophils % 0.8 D Eosinophils % (Manual) 0.0 D Basophils % 0.2 Basophils % (Manual) 0.0 Myelocytes % (Man) 2 D Promyelocytes % (Man) 0 Blast Cells % (Manual) 0 Nucleated RBC % 1 H Metamyelocytes 3 H D Hypochromia 2+ Toxic Granulation Platelet Estimate Decreased Platelet Comment Polychromasia 3+ Poikilocytosis 1+ Anisocytosis 3+ Microcytosis 3+ Macrocytosis 0 Spherocytes Target Cells Tear Drop Cells Ovalocytes 1+ Stomatocytes Jose Antonio Cells Acanthocytes (Spur) Fragmented RBCs Schistocytes PT with INR INR PTT (Actin FS) 33.4 Fibrinogen Puncture Site ABG pH ABG pCO2 at Pt Temp ABG pO2 at Pt Temp ABG HCO3 ABG O2 Sat (Measured) ABG O2 Content ABG Base Excess Atul Test O2 Delivery Device Oxygen Flow Rate Vent Mode Vent Rate PEEP Pressure Support Vent Sodium Potassium Chloride Carbon Dioxide Anion Gap BUN Creatinine Est GFR (CKD-EPI)AfAm Est GFR (CKD-EPI)NonAf POC Glucometer Random Glucose Lactic Acid Calcium Phosphorus Magnesium Iron TIBC Iron Saturation Unsaturated IBC Ferritin Total Bilirubin AST ALT Alkaline Phosphatase Creatine Kinase Troponin I Cancelled Total Protein Albumin Prealbumin Triglycerides Cholesterol Total LDL Cholesterol HDL Cholesterol Beta-Hydroxybutyrate Urine Color Urine Appearance Urine pH Ur Specific [place]rens Urine Protein Urine Glucose (UA) Urine Ketones Urine Blood Urine Nitrite Urine Bilirubin Urine Urobilinogen Ur Leukocyte Esterase Urine WBC (Auto) Urine RBC (Auto) U Epithel Cells (Auto) Urine Bacteria (Auto) Stool Occult Blood Acetone, Qual B-Hydroxybutyrate 03/20/19 03/20/19 03/20/19 05:30 05:30 05:40 WBC RBC Hgb Hct MCV MCH MCHC RDW Plt Count MPV Absolute Neuts (auto) Total Counted Neutrophils % Neutrophils % (Manual) Band Neutrophils % Lymphocytes % Lymphocytes % (Manual) Monocytes % Monocytes % (Manual) Eosinophils % Eosinophils % (Manual) Basophils % Basophils % (Manual) Myelocytes % (Man) Promyelocytes % (Man) Blast Cells % (Manual) Nucleated RBC % Metamyelocytes Hypochromia Toxic Granulation Platelet Estimate Platelet Comment Polychromasia Poikilocytosis Anisocytosis Microcytosis Macrocytosis Spherocytes Target Cells Tear Drop Cells Ovalocytes Stomatocytes Wayne Cells Acanthocytes (Spur) Fragmented RBCs Schistocytes PT with INR INR PTT (Actin FS) Fibrinogen Puncture Site ABG pH ABG pCO2 at Pt Temp ABG pO2 at Pt Temp ABG HCO3 ABG O2 Sat (Measured) ABG O2 Content ABG Base Excess Atul Test O2 Delivery Device Oxygen Flow Rate Vent Mode Vent Rate PEEP Pressure Support Vent Sodium 145 Potassium 3.2 L Chloride 106 Carbon Dioxide 27 Anion Gap 11 BUN 10.1 Creatinine 0.5 L Est GFR (CKD-EPI)AfAm 131.72 Est GFR (CKD-EPI)NonAf 113.65 POC Glucometer 397 Random Glucose 366 H Lactic Acid Calcium 6.7 L* Phosphorus 0.7 L* Magnesium 2.0 Iron TIBC Iron Saturation Unsaturated IBC Ferritin Total Bilirubin 0.3 AST 29 ALT 12 L Alkaline Phosphatase 422 H Creatine Kinase Troponin I Total Protein 4.0 L Albumin 1.2 L Prealbumin Triglycerides Cholesterol Total LDL Cholesterol HDL Cholesterol Beta-Hydroxybutyrate Urine Color Urine Appearance Urine pH Ur Specific W[place] Urine Protein Urine Glucose (UA) Urine Ketones Urine Blood Urine Nitrite Urine Bilirubin Urine Urobilinogen Ur Leukocyte Esterase Urine WBC (Auto) Urine RBC (Auto) U Epithel Cells (Auto) Urine Bacteria (Auto) Stool Occult Blood Positive Acetone, Qual B-Hydroxybutyrate 03/20/19 03/20/19 03/20/19 09:59 10:59 12:24 WBC RBC Hgb Hct MCV MCH MCHC RDW Plt Count MPV Absolute Neuts (auto) Total Counted Neutrophils % Neutrophils % (Manual) Band Neutrophils % Lymphocytes % Lymphocytes % (Manual) Monocytes % Monocytes % (Manual) Eosinophils % Eosinophils % (Manual) Basophils % Basophils % (Manual) Myelocytes % (Man) Promyelocytes % (Man) Blast Cells % (Manual) Nucleated RBC % Metamyelocytes Hypochromia Toxic Granulation Platelet Estimate Platelet Comment Polychromasia Poikilocytosis Anisocytosis Microcytosis Macrocytosis Spherocytes Target Cells Tear Drop Cells Ovalocytes Stomatocytes Jose Antonio Cells Acanthocytes (Spur) Fragmented RBCs Schistocytes PT with INR INR PTT (Actin FS) Fibrinogen Puncture Site ABG pH ABG pCO2 at Pt Temp ABG pO2 at Pt Temp ABG HCO3 ABG O2 Sat (Measured) ABG O2 Content ABG Base Excess Atul Test O2 Delivery Device Oxygen Flow Rate Vent Mode Vent Rate PEEP Pressure Support Vent Sodium Potassium Chloride Carbon Dioxide Anion Gap BUN Creatinine Est GFR (CKD-EPI)AfAm Est GFR (CKD-EPI)NonAf POC Glucometer [phone] Random Glucose Lactic Acid Calcium Phosphorus Magnesium Iron TIBC Iron Saturation Unsaturated IBC Ferritin Total Bilirubin AST ALT Alkaline Phosphatase Creatine Kinase Troponin I Total Protein Albumin Prealbumin Triglycerides Cholesterol Total LDL Cholesterol HDL Cholesterol Beta-Hydroxybutyrate Urine Color Urine Appearance Urine pH Ur Specific [place] Urine Protein Urine Glucose (UA) Urine Ketones Urine Blood Urine Nitrite Urine Bilirubin Urine Urobilinogen Ur Leukocyte Esterase Urine WBC (Auto) Urine RBC (Auto) U Epithel Cells (Auto) Urine Bacteria (Auto) Stool Occult Blood Acetone, Qual B-Hydroxybutyrate 03/20/19 03/20/19 03/20/19 13:14 14:08 17:00 WBC RBC Hgb Hct MCV MCH MCHC RDW Plt Count MPV Absolute Neuts (auto) Total Counted Neutrophils % Neutrophils % (Manual) Band Neutrophils % Lymphocytes % Lymphocytes % (Manual) Monocytes % Monocytes % (Manual) Eosinophils % Eosinophils % (Manual) Basophils % Basophils % (Manual) Myelocytes % (Man) Promyelocytes % (Man) Blast Cells % (Manual) Nucleated RBC % Metamyelocytes Hypochromia Toxic Granulation Platelet Estimate Platelet Comment Polychromasia Poikilocytosis Anisocytosis Microcytosis Macrocytosis Spherocytes Target Cells Tear Drop Cells Ovalocytes Stomatocytes Wayne Cells Acanthocytes (Spur) Fragmented RBCs Schistocytes PT with INR INR PTT (Actin FS) Fibrinogen Puncture Site ABG pH ABG pCO2 at Pt Temp ABG pO2 at Pt Temp ABG HCO3 ABG O2 Sat (Measured) ABG O2 Content ABG Base Excess Atul Test O2 Delivery Device Oxygen Flow Rate Vent Mode Vent Rate PEEP Pressure Support Vent Sodium 143 Potassium 3.5 Chloride 104 Carbon Dioxide 29 Anion Gap 10 BUN 10.5 Creatinine 0.4 L Est GFR (CKD-EPI)AfAm 141.75 Est GFR (CKD-EPI)NonAf 122.30 POC Glucometer 139 134 Random Glucose 315 H Lactic Acid Calcium 6.4 L* Phosphorus 2.4 L Magnesium 1.7 L Iron 125 TIBC 124 L Iron Saturation 100 H Unsaturated IBC -1 L Ferritin 220.2 Total Bilirubin AST ALT Alkaline Phosphatase Creatine Kinase Troponin I Total Protein Albumin Prealbumin Triglycerides Cholesterol Total LDL Cholesterol HDL Cholesterol Beta-Hydroxybutyrate Urine Color Urine Appearance Urine pH Ur Specific [place] Urine Protein Urine Glucose (UA) Urine Ketones Urine Blood Urine Nitrite Urine Bilirubin Urine Urobilinogen Ur Leukocyte Esterase Urine WBC (Auto) Urine RBC (Auto) U Epithel Cells (Auto) Urine Bacteria (Auto) Stool Occult Blood Acetone, Qual B-Hydroxybutyrate 03/20/19 03/20/19 03/20/19 17:32 19:44 21:48 WBC RBC Hgb Hct MCV MCH MCHC RDW Plt Count MPV Absolute Neuts (auto) Total Counted Neutrophils % Neutrophils % (Manual) Band Neutrophils % Lymphocytes % Lymphocytes % (Manual) Monocytes % Monocytes % (Manual) Eosinophils % Eosinophils % (Manual) Basophils % Basophils % (Manual) Myelocytes % (Man) Promyelocytes % (Man) Blast Cells % (Manual) Nucleated RBC % Metamyelocytes Hypochromia Toxic Granulation Platelet Estimate Platelet Comment Polychromasia Poikilocytosis Anisocytosis Microcytosis Macrocytosis Spherocytes Target Cells Tear Drop Cells Ovalocytes Stomatocytes Wayne Cells Acanthocytes (Spur) Fragmented RBCs Schistocytes PT with INR INR PTT (Actin FS) Fibrinogen Puncture Site ABG pH ABG pCO2 at Pt Temp ABG pO2 at Pt Temp ABG HCO3 ABG O2 Sat (Measured) ABG O2 Content ABG Base Excess Atul Test O2 Delivery Device Oxygen Flow Rate Vent Mode Vent Rate PEEP Pressure Support Vent Sodium Potassium Chloride Carbon Dioxide Anion Gap BUN Creatinine Est GFR (CKD-EPI)AfAm Est GFR (CKD-EPI)NonAf POC Glucometer [phone] Random Glucose Lactic Acid Calcium Phosphorus Magnesium Iron TIBC Iron Saturation Unsaturated IBC Ferritin Total Bilirubin AST ALT Alkaline Phosphatase Creatine Kinase Troponin I Total Protein Albumin Prealbumin Triglycerides Cholesterol Total LDL Cholesterol HDL Cholesterol Beta-Hydroxybutyrate Urine Color Urine Appearance Urine pH Ur Specific [place] Urine Protein Urine Glucose (UA) Urine Ketones Urine Blood Urine Nitrite Urine Bilirubin Urine Urobilinogen Ur Leukocyte Esterase Urine WBC (Auto) Urine RBC (Auto) U Epithel Cells (Auto) Urine Bacteria (Auto) Stool Occult Blood Acetone, Qual B-Hydroxybutyrate 03/20/19 03/21/19 03/21/19 23:26 00:36 01:42 WBC RBC Hgb Hct MCV MCH MCHC RDW Plt Count MPV Absolute Neuts (auto) Total Counted Neutrophils % Neutrophils % (Manual) Band Neutrophils % Lymphocytes % Lymphocytes % (Manual) Monocytes % Monocytes % (Manual) Eosinophils % Eosinophils % (Manual) Basophils % Basophils % (Manual) Myelocytes % (Man) Promyelocytes % (Man) Blast Cells % (Manual) Nucleated RBC % Metamyelocytes Hypochromia Toxic Granulation Platelet Estimate Platelet Comment Polychromasia Poikilocytosis Anisocytosis Microcytosis Macrocytosis Spherocytes Target Cells Tear Drop Cells Ovalocytes Stomatocytes Jose Antonio Cells Acanthocytes (Spur) Fragmented RBCs Schistocytes PT with INR INR PTT (Actin FS) Fibrinogen Puncture Site ABG pH ABG pCO2 at Pt Temp ABG pO2 at Pt Temp ABG HCO3 ABG O2 Sat (Measured) ABG O2 Content ABG Base Excess Atul Test O2 Delivery Device Oxygen Flow Rate Vent Mode Vent Rate PEEP Pressure Support Vent Sodium Potassium Chloride Carbon Dioxide Anion Gap BUN Creatinine Est GFR (CKD-EPI)AfAm Est GFR (CKD-EPI)NonAf POC Glucometer 88 [phone] Random Glucose Lactic Acid Calcium Phosphorus Magnesium Iron TIBC Iron Saturation Unsaturated IBC Ferritin Total Bilirubin AST ALT Alkaline Phosphatase Creatine Kinase Troponin I Total Protein Albumin Prealbumin Triglycerides Cholesterol Total LDL Cholesterol HDL Cholesterol Beta-Hydroxybutyrate Urine Color Urine Appearance Urine pH Ur Specific [place] Urine Protein Urine Glucose (UA) Urine Ketones Urine Blood Urine Nitrite Urine Bilirubin Urine Urobilinogen Ur Leukocyte Esterase Urine WBC (Auto) Urine RBC (Auto) U Epithel Cells (Auto) Urine Bacteria (Auto) Stool Occult Blood Acetone, Qual B-Hydroxybutyrate 03/21/19 03/21/19 03/21/19 02:46 04:55 05:30 WBC 12.0 H RBC 3.85 Hgb 9.9 L Hct 29.9 L D MCV 77.7 L MCH 25.6 L MCHC 33.0 RDW 21.8 H Plt Count 87 L D MPV 9.6 Absolute Neuts (auto) 9.6 H Total Counted Neutrophils % 79.3 Neutrophils % (Manual) 72.7 Band Neutrophils % 1.0 Lymphocytes % 15.9 D Lymphocytes % (Manual) 19.2 D Monocytes % 2.1 L Monocytes % (Manual) 3 L Eosinophils % 2.4 D Eosinophils % (Manual) 3.1 D Basophils % 0.3 Basophils % (Manual) 0.0 Myelocytes % (Man) 0 D Promyelocytes % (Man) 0 Blast Cells % (Manual) 0 Nucleated RBC % 0 Metamyelocytes 1 D Hypochromia 0 Toxic Granulation Platelet Estimate Decreased Platelet Comment Polychromasia 1+ Poikilocytosis 0 Anisocytosis 1+ Microcytosis 1+ Macrocytosis 0 Spherocytes Target Cells 2+ Tear Drop Cells Ovalocytes 1+ Stomatocytes Wayne Cells Acanthocytes (Spur) Fragmented RBCs Schistocytes PT with INR INR PTT (Actin FS) Fibrinogen Puncture Site ABG pH ABG pCO2 at Pt Temp ABG pO2 at Pt Temp ABG HCO3 ABG O2 Sat (Measured) ABG O2 Content ABG Base Excess Atul Test O2 Delivery Device Oxygen Flow Rate Vent Mode Vent Rate PEEP Pressure Support Vent Sodium Potassium Chloride Carbon Dioxide Anion Gap BUN Creatinine Est GFR (CKD-EPI)AfAm Est GFR (CKD-EPI)NonAf POC Glucometer 265 225 Random Glucose Lactic Acid Calcium Phosphorus Magnesium Iron TIBC Iron Saturation Unsaturated IBC Ferritin Total Bilirubin AST ALT Alkaline Phosphatase Creatine Kinase Troponin I Total Protein Albumin Prealbumin Triglycerides Cholesterol Total LDL Cholesterol HDL Cholesterol Beta-Hydroxybutyrate Urine Color Urine Appearance Urine pH Ur Specific [place] Urine Protein Urine Glucose (UA) Urine Ketones Urine Blood Urine Nitrite Urine Bilirubin Urine Urobilinogen Ur Leukocyte Esterase Urine WBC (Auto) Urine RBC (Auto) U Epithel Cells (Auto) Urine Bacteria (Auto) Stool Occult Blood Acetone, Qual B-Hydroxybutyrate 03/21/19 03/21/19 03/21/19 05:30 05:30 06:00 WBC RBC Hgb Hct MCV MCH MCHC RDW Plt Count MPV Absolute Neuts (auto) Total Counted Neutrophils % Neutrophils % (Manual) Band Neutrophils % Lymphocytes % Lymphocytes % (Manual) Monocytes % Monocytes % (Manual) Eosinophils % Eosinophils % (Manual) Basophils % Basophils % (Manual) Myelocytes % (Man) Promyelocytes % (Man) Blast Cells % (Manual) Nucleated RBC % Metamyelocytes Hypochromia Toxic Granulation Platelet Estimate Platelet Comment Polychromasia Poikilocytosis Anisocytosis Microcytosis Macrocytosis Spherocytes Target Cells Tear Drop Cells Ovalocytes Stomatocytes Jose Antonio Cells Acanthocytes (Spur) Fragmented RBCs Schistocytes PT with INR INR PTT (Actin FS) Fibrinogen Puncture Site Left radial ABG pH 7.46 H ABG pCO2 at Pt Temp 44.1 ABG pO2 at Pt Temp 134 H ABG HCO3 30.6 H ABG O2 Sat (Measured) 98.8 H ABG O2 Content 17.0 ABG Base Excess 6.3 H Atul Test Positive O2 Delivery Device Vent Oxygen Flow Rate 40% Vent Mode A/c Vent Rate 14 PEEP 5.0 Pressure Support Vent 400 Sodium 142 Potassium 2.9 L* Chloride 103 Carbon Dioxide 31 Anion Gap 8 BUN 14.5 Creatinine 0.5 L Est GFR (CKD-EPI)AfAm 131.72 Est GFR (CKD-EPI)NonAf 113.65 POC Glucometer Random Glucose 242 H Lactic Acid 3.4 H* Calcium 6.6 L* Phosphorus Magnesium 1.6 L Iron TIBC Iron Saturation Unsaturated IBC Ferritin Total Bilirubin 0.5 AST 22 ALT 10 L Alkaline Phosphatase 332 H Creatine Kinase Troponin I Total Protein 4.2 L Albumin 1.2 L Prealbumin Triglycerides Cholesterol Total LDL Cholesterol HDL Cholesterol Beta-Hydroxybutyrate Urine Color Urine Appearance Urine pH Ur Specific [place] Urine Protein Urine Glucose (UA) Urine Ketones Urine Blood Urine Nitrite Urine Bilirubin Urine Urobilinogen Ur Leukocyte Esterase Urine WBC (Auto) Urine RBC (Auto) U Epithel Cells (Auto) Urine Bacteria (Auto) Stool Occult Blood Acetone, Qual B-Hydroxybutyrate 03/21/19 03/21/19 03/21/19 06:21 07:06 08:46 WBC RBC Hgb Hct MCV MCH MCHC RDW Plt Count MPV Absolute Neuts (auto) Total Counted Neutrophils % Neutrophils % (Manual) Band Neutrophils % Lymphocytes % Lymphocytes % (Manual) Monocytes % Monocytes % (Manual) Eosinophils % Eosinophils % (Manual) Basophils % Basophils % (Manual) Myelocytes % (Man) Promyelocytes % (Man) Blast Cells % (Manual) Nucleated RBC % Metamyelocytes Hypochromia Toxic Granulation Platelet Estimate Platelet Comment Polychromasia Poikilocytosis Anisocytosis Microcytosis Macrocytosis Spherocytes Target Cells Tear Drop Cells Ovalocytes Stomatocytes Wayne Cells Acanthocytes (Spur) Fragmented RBCs Schistocytes PT with INR INR PTT (Actin FS) Fibrinogen Puncture Site ABG pH ABG pCO2 at Pt Temp ABG pO2 at Pt Temp ABG HCO3 ABG O2 Sat (Measured) ABG O2 Content ABG Base Excess Atul Test O2 Delivery Device Oxygen Flow Rate Vent Mode Vent Rate PEEP Pressure Support Vent Sodium Potassium Chloride Carbon Dioxide Anion Gap BUN Creatinine Est GFR (CKD-EPI)AfAm Est GFR (CKD-EPI)NonAf POC Glucometer [phone] 97 Random Glucose Lactic Acid Calcium Phosphorus Magnesium Iron TIBC Iron Saturation Unsaturated IBC Ferritin Total Bilirubin AST ALT Alkaline Phosphatase Creatine Kinase Troponin I Total Protein Albumin Prealbumin Triglycerides Cholesterol Total LDL Cholesterol HDL Cholesterol Beta-Hydroxybutyrate Urine Color Urine Appearance Urine pH Ur Specific [place] Urine Protein Urine Glucose (UA) Urine Ketones Urine Blood Urine Nitrite Urine Bilirubin Urine Urobilinogen Ur Leukocyte Esterase Urine WBC (Auto) Urine RBC (Auto) U Epithel Cells (Auto) Urine Bacteria (Auto) Stool Occult Blood Acetone, Qual B-Hydroxybutyrate 03/21/19 03/21/19 03/21/19 10:28 12:29 14:44 WBC RBC Hgb Hct MCV MCH MCHC RDW Plt Count MPV Absolute Neuts (auto) Total Counted Neutrophils % Neutrophils % (Manual) Band Neutrophils % Lymphocytes % Lymphocytes % (Manual) Monocytes % Monocytes % (Manual) Eosinophils % Eosinophils % (Manual) Basophils % Basophils % (Manual) Myelocytes % (Man) Promyelocytes % (Man) Blast Cells % (Manual) Nucleated RBC % Metamyelocytes Hypochromia Toxic Granulation Platelet Estimate Platelet Comment Polychromasia Poikilocytosis Anisocytosis Microcytosis Macrocytosis Spherocytes Target Cells Tear Drop Cells Ovalocytes Stomatocytes Wayne Cells Acanthocytes (Spur) Fragmented RBCs Schistocytes PT with INR INR PTT (Actin FS) Fibrinogen Puncture Site ABG pH ABG pCO2 at Pt Temp ABG pO2 at Pt Temp ABG HCO3 ABG O2 Sat (Measured) ABG O2 Content ABG Base Excess Atul Test O2 Delivery Device Oxygen Flow Rate Vent Mode Vent Rate PEEP Pressure Support Vent Sodium Potassium Chloride Carbon Dioxide Anion Gap BUN Creatinine Est GFR (CKD-EPI)AfAm Est GFR (CKD-EPI)NonAf POC Glucometer [phone] Random Glucose Lactic Acid Calcium Phosphorus Magnesium Iron TIBC Iron Saturation Unsaturated IBC Ferritin Total Bilirubin AST ALT Alkaline Phosphatase Creatine Kinase Troponin I Total Protein Albumin Prealbumin Triglycerides Cholesterol Total LDL Cholesterol HDL Cholesterol Beta-Hydroxybutyrate Urine Color Urine Appearance Urine pH Ur Specific [place] Urine Protein Urine Glucose (UA) Urine Ketones Urine Blood Urine Nitrite Urine Bilirubin Urine Urobilinogen Ur Leukocyte Esterase Urine WBC (Auto) Urine RBC (Auto) U Epithel Cells (Auto) Urine Bacteria (Auto) Stool Occult Blood Acetone, Qual B-Hydroxybutyrate 03/21/19 03/21/19 03/21/19 16:27 18:15 18:25 WBC RBC Hgb Hct MCV MCH MCHC RDW Plt Count MPV Absolute Neuts (auto) Total Counted Neutrophils % Neutrophils % (Manual) Band Neutrophils % Lymphocytes % Lymphocytes % (Manual) Monocytes % Monocytes % (Manual) Eosinophils % Eosinophils % (Manual) Basophils % Basophils % (Manual) Myelocytes % (Man) Promyelocytes % (Man) Blast Cells % (Manual) Nucleated RBC % Metamyelocytes Hypochromia Toxic Granulation Platelet Estimate Platelet Comment Polychromasia Poikilocytosis Anisocytosis Microcytosis Macrocytosis Spherocytes Target Cells Tear Drop Cells Ovalocytes Stomatocytes Jose Antonio Cells Acanthocytes (Spur) Fragmented RBCs Schistocytes PT with INR INR PTT (Actin FS) Fibrinogen Puncture Site ABG pH ABG pCO2 at Pt Temp ABG pO2 at Pt Temp ABG HCO3 ABG O2 Sat (Measured) ABG O2 Content ABG Base Excess Atul Test O2 Delivery Device Oxygen Flow Rate Vent Mode Vent Rate PEEP Pressure Support Vent Sodium 143 Potassium 3.1 L Chloride 105 Carbon Dioxide 28 Anion Gap 10 BUN 17.0 Creatinine 0.6 Est GFR (CKD-EPI)AfAm 124.05 Est GFR (CKD-EPI)NonAf 107.03 POC Glucometer 257 136 Random Glucose 137 H Lactic Acid Calcium 7.1 L Phosphorus 1.2 L Magnesium 2.2 Iron TIBC Iron Saturation Unsaturated IBC Ferritin Total Bilirubin AST ALT Alkaline Phosphatase Creatine Kinase Troponin I Total Protein Albumin Prealbumin Triglycerides Cholesterol Total LDL Cholesterol HDL Cholesterol Beta-Hydroxybutyrate 1.7 Urine Color Urine Appearance Urine pH Ur Specific [place] Urine Protein Urine Glucose (UA) Urine Ketones Urine Blood Urine Nitrite Urine Bilirubin Urine Urobilinogen Ur Leukocyte Esterase Urine WBC (Auto) Urine RBC (Auto) U Epithel Cells (Auto) Urine Bacteria (Auto) Stool Occult Blood Acetone, Qual B-Hydroxybutyrate 03/21/19 03/21/19 03/22/19 20:20 21:31 00:00 WBC RBC Hgb Hct MCV MCH MCHC RDW Plt Count MPV Absolute Neuts (auto) Total Counted Neutrophils % Neutrophils % (Manual) Band Neutrophils % Lymphocytes % Lymphocytes % (Manual) Monocytes % Monocytes % (Manual) Eosinophils % Eosinophils % (Manual) Basophils % Basophils % (Manual) Myelocytes % (Man) Promyelocytes % (Man) Blast Cells % (Manual) Nucleated RBC % Metamyelocytes Hypochromia Toxic Granulation Platelet Estimate Platelet Comment Polychromasia Poikilocytosis Anisocytosis Microcytosis Macrocytosis Spherocytes Target Cells Tear Drop Cells Ovalocytes Stomatocytes Jose Antonio Cells Acanthocytes (Spur) Fragmented RBCs Schistocytes PT with INR INR PTT (Actin FS) Fibrinogen Puncture Site ABG pH ABG pCO2 at Pt Temp ABG pO2 at Pt Temp ABG HCO3 ABG O2 Sat (Measured) ABG O2 Content ABG Base Excess Atul Test O2 Delivery Device Oxygen Flow Rate Vent Mode Vent Rate PEEP Pressure Support Vent Sodium Potassium Chloride Carbon Dioxide Anion Gap BUN Creatinine Est GFR (CKD-EPI)AfAm Est GFR (CKD-EPI)NonAf POC Glucometer 93 [phone] Random Glucose Lactic Acid Calcium Phosphorus Magnesium Iron TIBC Iron Saturation Unsaturated IBC Ferritin Total Bilirubin AST ALT Alkaline Phosphatase Creatine Kinase Troponin I Total Protein Albumin Prealbumin Triglycerides Cholesterol Total LDL Cholesterol HDL Cholesterol Beta-Hydroxybutyrate Urine Color Urine Appearance Urine pH Ur Specific Wrens Urine Protein Urine Glucose (UA) Urine Ketones Urine Blood Urine Nitrite Urine Bilirubin Urine Urobilinogen Ur Leukocyte Esterase Urine WBC (Auto) Urine RBC (Auto) U Epithel Cells (Auto) Urine Bacteria (Auto) Stool Occult Blood Acetone, Qual B-Hydroxybutyrate 03/22/19 03/22/19 03/22/19 02:29 04:38 05:10 WBC 11.1 H RBC 3.88 Hgb 10.0 L Hct 29.8 L MCV 76.9 L MCH 25.8 MCHC 33.5 RDW 23.0 H Plt Count 95 L MPV 9.4 Absolute Neuts (auto) 8.7 H Total Counted Neutrophils % 78.6 Neutrophils % (Manual) Band Neutrophils % Lymphocytes % 18.0 Lymphocytes % (Manual) Monocytes % 1.4 L Monocytes % (Manual) Eosinophils % 1.7 Eosinophils % (Manual) Basophils % 0.3 Basophils % (Manual) Myelocytes % (Man) Promyelocytes % (Man) Blast Cells % (Manual) Nucleated RBC % 0 Metamyelocytes Hypochromia Toxic Granulation Platelet Estimate Platelet Comment Polychromasia Poikilocytosis Anisocytosis Microcytosis Macrocytosis Spherocytes Target Cells Tear Drop Cells Ovalocytes Stomatocytes Wayne Cells Acanthocytes (Spur) Fragmented RBCs Schistocytes PT with INR INR PTT (Actin FS) Fibrinogen Puncture Site ABG pH ABG pCO2 at Pt Temp ABG pO2 at Pt Temp ABG HCO3 ABG O2 Sat (Measured) ABG O2 Content ABG Base Excess Atul Test O2 Delivery Device Oxygen Flow Rate Vent Mode Vent Rate PEEP Pressure Support Vent Sodium Potassium Chloride Carbon Dioxide Anion Gap BUN Creatinine Est GFR (CKD-EPI)AfAm Est GFR (CKD-EPI)NonAf POC Glucometer 163 141 Random Glucose Lactic Acid Calcium Phosphorus Magnesium Iron TIBC Iron Saturation Unsaturated IBC Ferritin Total Bilirubin AST ALT Alkaline Phosphatase Creatine Kinase Troponin I Total Protein Albumin Prealbumin Triglycerides Cholesterol Total LDL Cholesterol HDL Cholesterol Beta-Hydroxybutyrate Urine Color Urine Appearance Urine pH Ur Specific [place]rens Urine Protein Urine Glucose (UA) Urine Ketones Urine Blood Urine Nitrite Urine Bilirubin Urine Urobilinogen Ur Leukocyte Esterase Urine WBC (Auto) Urine RBC (Auto) U Epithel Cells (Auto) Urine Bacteria (Auto) Stool Occult Blood Acetone, Qual B-Hydroxybutyrate 03/22/19 03/22/19 03/22/19 05:10 05:10 07:56 WBC RBC Hgb Hct MCV MCH MCHC RDW Plt Count MPV Absolute Neuts (auto) Total Counted Neutrophils % Neutrophils % (Manual) Band Neutrophils % Lymphocytes % Lymphocytes % (Manual) Monocytes % Monocytes % (Manual) Eosinophils % Eosinophils % (Manual) Basophils % Basophils % (Manual) Myelocytes % (Man) Promyelocytes % (Man) Blast Cells % (Manual) Nucleated RBC % Metamyelocytes Hypochromia Toxic Granulation Platelet Estimate Platelet Comment Polychromasia Poikilocytosis Anisocytosis Microcytosis Macrocytosis Spherocytes Target Cells Tear Drop Cells Ovalocytes Stomatocytes Jose Antonio Cells Acanthocytes (Spur) Fragmented RBCs Schistocytes PT with INR INR PTT (Actin FS) Fibrinogen Puncture Site ABG pH ABG pCO2 at Pt Temp ABG pO2 at Pt Temp ABG HCO3 ABG O2 Sat (Measured) ABG O2 Content ABG Base Excess Atul Test O2 Delivery Device Oxygen Flow Rate Vent Mode Vent Rate PEEP Pressure Support Vent Sodium 141 Potassium 3.9 Chloride 104 Carbon Dioxide 30 Anion Gap 8 BUN 18.6 H Creatinine 0.5 L Est GFR (CKD-EPI)AfAm 131.72 Est GFR (CKD-EPI)NonAf 113.65 POC Glucometer 195 Random Glucose 156 H Lactic Acid Calcium 6.9 L* Phosphorus Magnesium 2.1 Iron TIBC Iron Saturation Unsaturated IBC Ferritin Total Bilirubin 0.4 AST 20 ALT 11 L Alkaline Phosphatase 285 H Creatine Kinase Troponin I Total Protein 4.4 L Albumin 1.2 L Prealbumin Triglycerides Cholesterol Total LDL Cholesterol HDL Cholesterol Beta-Hydroxybutyrate 0.9 Urine Color Urine Appearance Urine pH Ur Specific [place] Urine Protein Urine Glucose (UA) Urine Ketones Urine Blood Urine Nitrite Urine Bilirubin Urine Urobilinogen Ur Leukocyte Esterase Urine WBC (Auto) Urine RBC (Auto) U Epithel Cells (Auto) Urine Bacteria (Auto) Stool Occult Blood Acetone, Qual B-Hydroxybutyrate 03/22/19 03/22/19 03/22/19 10:49 14:56 17:11 WBC RBC Hgb Hct MCV MCH MCHC RDW Plt Count MPV Absolute Neuts (auto) Total Counted Neutrophils % Neutrophils % (Manual) Band Neutrophils % Lymphocytes % Lymphocytes % (Manual) Monocytes % Monocytes % (Manual) Eosinophils % Eosinophils % (Manual) Basophils % Basophils % (Manual) Myelocytes % (Man) Promyelocytes % (Man) Blast Cells % (Manual) Nucleated RBC % Metamyelocytes Hypochromia Toxic Granulation Platelet Estimate Platelet Comment Polychromasia Poikilocytosis Anisocytosis Microcytosis Macrocytosis Spherocytes Target Cells Tear Drop Cells Ovalocytes Stomatocytes Jose Antonio Cells Acanthocytes (Spur) Fragmented RBCs Schistocytes PT with INR INR PTT (Actin FS) Fibrinogen Puncture Site ABG pH ABG pCO2 at Pt Temp ABG pO2 at Pt Temp ABG HCO3 ABG O2 Sat (Measured) ABG O2 Content ABG Base Excess Atul Test O2 Delivery Device Oxygen Flow Rate Vent Mode Vent Rate PEEP Pressure Support Vent Sodium Potassium Chloride Carbon Dioxide Anion Gap BUN Creatinine Est GFR (CKD-EPI)AfAm Est GFR (CKD-EPI)NonAf POC Glucometer [phone] Random Glucose Lactic Acid Calcium Phosphorus Magnesium Iron TIBC Iron Saturation Unsaturated IBC Ferritin Total Bilirubin AST ALT Alkaline Phosphatase Creatine Kinase Troponin I Total Protein Albumin Prealbumin Triglycerides Cholesterol Total LDL Cholesterol HDL Cholesterol Beta-Hydroxybutyrate Urine Color Urine Appearance Urine pH Ur Specific [place] Urine Protein Urine Glucose (UA) Urine Ketones Urine Blood Urine Nitrite Urine Bilirubin Urine Urobilinogen Ur Leukocyte Esterase Urine WBC (Auto) Urine RBC (Auto) U Epithel Cells (Auto) Urine Bacteria (Auto) Stool Occult Blood Acetone, Qual B-Hydroxybutyrate 03/22/19 03/23/19 03/23/19 21:34 02:48 03:32 WBC RBC Hgb Hct MCV MCH MCHC RDW Plt Count MPV Absolute Neuts (auto) Total Counted Neutrophils % Neutrophils % (Manual) Band Neutrophils % Lymphocytes % Lymphocytes % (Manual) Monocytes % Monocytes % (Manual) Eosinophils % Eosinophils % (Manual) Basophils % Basophils % (Manual) Myelocytes % (Man) Promyelocytes % (Man) Blast Cells % (Manual) Nucleated RBC % Metamyelocytes Hypochromia Toxic Granulation Platelet Estimate Platelet Comment Polychromasia Poikilocytosis Anisocytosis Microcytosis Macrocytosis Spherocytes Target Cells Tear Drop Cells Ovalocytes Stomatocytes Jose Antonio Cells Acanthocytes (Spur) Fragmented RBCs Schistocytes PT with INR INR PTT (Actin FS) Fibrinogen Puncture Site ABG pH ABG pCO2 at Pt Temp ABG pO2 at Pt Temp ABG HCO3 ABG O2 Sat (Measured) ABG O2 Content ABG Base Excess Atul Test O2 Delivery Device Oxygen Flow Rate Vent Mode Vent Rate PEEP Pressure Support Vent Sodium Potassium Chloride Carbon Dioxide Anion Gap BUN Creatinine Est GFR (CKD-EPI)AfAm Est GFR (CKD-EPI)NonAf POC Glucometer [phone] Random Glucose Lactic Acid Calcium Phosphorus Magnesium Iron TIBC Iron Saturation Unsaturated IBC Ferritin Total Bilirubin AST ALT Alkaline Phosphatase Creatine Kinase Troponin I Total Protein Albumin Prealbumin Triglycerides Cholesterol Total LDL Cholesterol HDL Cholesterol Beta-Hydroxybutyrate Urine Color Urine Appearance Urine pH Ur Specific [place] Urine Protein Urine Glucose (UA) Urine Ketones Urine Blood Urine Nitrite Urine Bilirubin Urine Urobilinogen Ur Leukocyte Esterase Urine WBC (Auto) Urine RBC (Auto) U Epithel Cells (Auto) Urine Bacteria (Auto) Stool Occult Blood Acetone, Qual B-Hydroxybutyrate 03/23/19 03/23/19 03/23/19 05:10 05:10 05:10 WBC 12.9 H RBC 3.47 L Hgb 8.9 L Hct 27.2 L MCV 78.3 L MCH 25.5 L MCHC 32.6 RDW 22.8 H Plt Count 121 L D MPV 9.0 Absolute Neuts (auto) 9.9 H Total Counted Neutrophils % 77.0 Neutrophils % (Manual) Band Neutrophils % Lymphocytes % 17.9 Lymphocytes % (Manual) Monocytes % 3.3 L D Monocytes % (Manual) Eosinophils % 1.2 Eosinophils % (Manual) Basophils % 0.6 Basophils % (Manual) Myelocytes % (Man) Promyelocytes % (Man) Blast Cells % (Manual) Nucleated RBC % 0 Metamyelocytes Hypochromia Toxic Granulation Platelet Estimate Platelet Comment Polychromasia Poikilocytosis Anisocytosis Microcytosis Macrocytosis Spherocytes Target Cells Tear Drop Cells Ovalocytes Stomatocytes Jose Antonio Cells Acanthocytes (Spur) Fragmented RBCs Schistocytes PT with INR INR PTT (Actin FS) Fibrinogen Puncture Site ABG pH ABG pCO2 at Pt Temp ABG pO2 at Pt Temp ABG HCO3 ABG O2 Sat (Measured) ABG O2 Content ABG Base Excess Atul Test O2 Delivery Device Oxygen Flow Rate Vent Mode Vent Rate PEEP Pressure Support Vent Sodium 144 Potassium 3.5 Chloride 106 Carbon Dioxide 33 H Anion Gap 5 L BUN 19.3 H Creatinine 0.5 L Est GFR (CKD-EPI)AfAm 131.72 Est GFR (CKD-EPI)NonAf 113.65 POC Glucometer 26 Random Glucose 31 L* Lactic Acid Calcium 7.0 L Phosphorus 2.1 L Magnesium 2.2 Iron TIBC Iron Saturation Unsaturated IBC Ferritin Total Bilirubin 0.2 AST 21 ALT 11 L Alkaline Phosphatase 229 H Creatine Kinase Troponin I Total Protein 4.5 L Albumin 1.2 L Prealbumin Triglycerides Cholesterol Total LDL Cholesterol HDL Cholesterol Beta-Hydroxybutyrate Urine Color Urine Appearance Urine pH Ur Specific [place] Urine Protein Urine Glucose (UA) Urine Ketones Urine Blood Urine Nitrite Urine Bilirubin Urine Urobilinogen Ur Leukocyte Esterase Urine WBC (Auto) Urine RBC (Auto) U Epithel Cells (Auto) Urine Bacteria (Auto) Stool Occult Blood Acetone, Qual B-Hydroxybutyrate 0903/23/19 03/23/19 05:45 07:44 09:05 WBC RBC Hgb Hct MCV MCH MCHC RDW Plt Count MPV Absolute Neuts (auto) Total Counted Neutrophils % Neutrophils % (Manual) Band Neutrophils % Lymphocytes % Lymphocytes % (Manual) Monocytes % Monocytes % (Manual) Eosinophils % Eosinophils % (Manual) Basophils % Basophils % (Manual) Myelocytes % (Man) Promyelocytes % (Man) Blast Cells % (Manual) Nucleated RBC % Metamyelocytes Hypochromia Toxic Granulation Platelet Estimate Platelet Comment Polychromasia Poikilocytosis Anisocytosis Microcytosis Macrocytosis Spherocytes Target Cells Tear Drop Cells Ovalocytes Stomatocytes Wayne Cells Acanthocytes (Spur) Fragmented RBCs Schistocytes PT with INR INR PTT (Actin FS) Fibrinogen Puncture Site ABG pH ABG pCO2 at Pt Temp ABG pO2 at Pt Temp ABG HCO3 ABG O2 Sat (Measured) ABG O2 Content ABG Base Excess Atul Test O2 Delivery Device Oxygen Flow Rate Vent Mode Vent Rate PEEP Pressure Support Vent Sodium Potassium Chloride Carbon Dioxide Anion Gap BUN Creatinine Est GFR (CKD-EPI)AfAm Est GFR (CKD-EPI)NonAf POC Glucometer 84 58 111 Random Glucose Lactic Acid Calcium Phosphorus Magnesium Iron TIBC Iron Saturation Unsaturated IBC Ferritin Total Bilirubin AST ALT Alkaline Phosphatase Creatine Kinase Troponin I Total Protein Albumin Prealbumin Triglycerides Cholesterol Total LDL Cholesterol HDL Cholesterol Beta-Hydroxybutyrate Urine Color Urine Appearance Urine pH Ur Specific [place] Urine Protein Urine Glucose (UA) Urine Ketones Urine Blood Urine Nitrite Urine Bilirubin Urine Urobilinogen Ur Leukocyte Esterase Urine WBC (Auto) Urine RBC (Auto) U Epithel Cells (Auto) Urine Bacteria (Auto) Stool Occult Blood Acetone, Qual B-Hydroxybutyrate 03/23/19 03/23/19 03/23/19 11:25 13:44 16:30 WBC RBC Hgb Hct MCV MCH MCHC RDW Plt Count MPV Absolute Neuts (auto) Total Counted Neutrophils % Neutrophils % (Manual) Band Neutrophils % Lymphocytes % Lymphocytes % (Manual) Monocytes % Monocytes % (Manual) Eosinophils % Eosinophils % (Manual) Basophils % Basophils % (Manual) Myelocytes % (Man) Promyelocytes % (Man) Blast Cells % (Manual) Nucleated RBC % Metamyelocytes Hypochromia Toxic Granulation Platelet Estimate Platelet Comment Polychromasia Poikilocytosis Anisocytosis Microcytosis Macrocytosis Spherocytes Target Cells Tear Drop Cells Ovalocytes Stomatocytes Jose Antonio Cells Acanthocytes (Spur) Fragmented RBCs Schistocytes PT with INR INR PTT (Actin FS) Fibrinogen Puncture Site ABG pH ABG pCO2 at Pt Temp ABG pO2 at Pt Temp ABG HCO3 ABG O2 Sat (Measured) ABG O2 Content ABG Base Excess Atul Test O2 Delivery Device Oxygen Flow Rate Vent Mode Vent Rate PEEP Pressure Support Vent Sodium Potassium Chloride Carbon Dioxide Anion Gap BUN Creatinine Est GFR (CKD-EPI)AfAm Est GFR (CKD-EPI)NonAf POC Glucometer 106 155 162 Random Glucose Lactic Acid Calcium Phosphorus Magnesium Iron TIBC Iron Saturation Unsaturated IBC Ferritin Total Bilirubin AST ALT Alkaline Phosphatase Creatine Kinase Troponin I Total Protein Albumin Prealbumin Triglycerides Cholesterol Total LDL Cholesterol HDL Cholesterol Beta-Hydroxybutyrate Urine Color Urine Appearance Urine pH Ur Specific [place] Urine Protein Urine Glucose (UA) Urine Ketones Urine Blood Urine Nitrite Urine Bilirubin Urine Urobilinogen Ur Leukocyte Esterase Urine WBC (Auto) Urine RBC (Auto) U Epithel Cells (Auto) Urine Bacteria (Auto) Stool Occult Blood Acetone, Qual B-Hydroxybutyrate 03/23/19 03/24/19 03/24/19 21:56 01:44 05:40 WBC 7.9 RBC 3.06 L Hgb 7.9 L Hct 24.2 L MCV 78.9 L MCH 25.9 MCHC 32.9 RDW 23.2 H Plt Count 95 L D MPV 8.1 Absolute Neuts (auto) 5.6 Total Counted Neutrophils % 71.4 Neutrophils % (Manual) Band Neutrophils % Lymphocytes % 20.4 Lymphocytes % (Manual) Monocytes % 4.3 Monocytes % (Manual) Eosinophils % 3.0 D Eosinophils % (Manual) Basophils % 0.9 Basophils % (Manual) Myelocytes % (Man) Promyelocytes % (Man) Blast Cells % (Manual) Nucleated RBC % 0 Metamyelocytes Hypochromia 0 Toxic Granulation Platelet Estimate Decreased Platelet Comment Polychromasia 1+ Poikilocytosis 0 Anisocytosis 1+ Microcytosis 1+ Macrocytosis 1+ Spherocytes Target Cells 2+ Tear Drop Cells Ovalocytes 1+ Stomatocytes Jose Antonio Cells Acanthocytes (Spur) Fragmented RBCs Schistocytes PT with INR INR PTT (Actin FS) Fibrinogen Puncture Site ABG pH ABG pCO2 at Pt Temp ABG pO2 at Pt Temp ABG HCO3 ABG O2 Sat (Measured) ABG O2 Content ABG Base Excess Atul Test O2 Delivery Device Oxygen Flow Rate Vent Mode Vent Rate PEEP Pressure Support Vent Sodium Potassium Chloride Carbon Dioxide Anion Gap BUN Creatinine Est GFR (CKD-EPI)AfAm Est GFR (CKD-EPI)NonAf POC Glucometer 255 120 Random Glucose Lactic Acid Calcium Phosphorus Magnesium Iron TIBC Iron Saturation Unsaturated IBC Ferritin Total Bilirubin AST ALT Alkaline Phosphatase Creatine Kinase Troponin I Total Protein Albumin Prealbumin Triglycerides Cholesterol Total LDL Cholesterol HDL Cholesterol Beta-Hydroxybutyrate Urine Color Urine Appearance Urine pH Ur Specific [place] Urine Protein Urine Glucose (UA) Urine Ketones Urine Blood Urine Nitrite Urine Bilirubin Urine Urobilinogen Ur Leukocyte Esterase Urine WBC (Auto) Urine RBC (Auto) U Epithel Cells (Auto) Urine Bacteria (Auto) Stool Occult Blood Acetone, Qual B-Hydroxybutyrate 03/24/19 03/24/19 03/24/19 05:40 06:03 11:56 WBC RBC Hgb Hct MCV MCH MCHC RDW Plt Count MPV Absolute Neuts (auto) Total Counted Neutrophils % Neutrophils % (Manual) Band Neutrophils % Lymphocytes % Lymphocytes % (Manual) Monocytes % Monocytes % (Manual) Eosinophils % Eosinophils % (Manual) Basophils % Basophils % (Manual) Myelocytes % (Man) Promyelocytes % (Man) Blast Cells % (Manual) Nucleated RBC % Metamyelocytes Hypochromia Toxic Granulation Platelet Estimate Platelet Comment Polychromasia Poikilocytosis Anisocytosis Microcytosis Macrocytosis Spherocytes Target Cells Tear Drop Cells Ovalocytes Stomatocytes Jose Antonio Cells Acanthocytes (Spur) Fragmented RBCs Schistocytes PT with INR INR PTT (Actin FS) Fibrinogen Puncture Site ABG pH ABG pCO2 at Pt Temp ABG pO2 at Pt Temp ABG HCO3 ABG O2 Sat (Measured) ABG O2 Content ABG Base Excess Atul Test O2 Delivery Device Oxygen Flow Rate Vent Mode Vent Rate PEEP Pressure Support Vent Sodium 141 Potassium 3.8 Chloride 104 Carbon Dioxide 31 Anion Gap 6 L BUN 14.5 Creatinine 0.4 L Est GFR (CKD-EPI)AfAm 141.75 Est GFR (CKD-EPI)NonAf 122.30 POC Glucometer 198 306 Random Glucose 207 H Lactic Acid Calcium 6.8 L* Phosphorus 2.0 L Magnesium 1.7 L Iron TIBC Iron Saturation Unsaturated IBC Ferritin Total Bilirubin 0.4 AST 14 L ALT 7 L Alkaline Phosphatase 170 H Creatine Kinase Troponin I Total Protein 3.9 L Albumin 1.1 L Prealbumin Triglycerides Cholesterol Total LDL Cholesterol HDL Cholesterol Beta-Hydroxybutyrate Urine Color Urine Appearance Urine pH Ur Specific [place] Urine Protein Urine Glucose (UA) Urine Ketones Urine Blood Urine Nitrite Urine Bilirubin Urine Urobilinogen Ur Leukocyte Esterase Urine WBC (Auto) Urine RBC (Auto) U Epithel Cells (Auto) Urine Bacteria (Auto) Stool Occult Blood Acetone, Qual B-Hydroxybutyrate 03/24/19 03/24/19 03/25/19 17:45 21:40 03:08 WBC RBC Hgb Hct MCV MCH MCHC RDW Plt Count MPV Absolute Neuts (auto) Total Counted Neutrophils % Neutrophils % (Manual) Band Neutrophils % Lymphocytes % Lymphocytes % (Manual) Monocytes % Monocytes % (Manual) Eosinophils % Eosinophils % (Manual) Basophils % Basophils % (Manual) Myelocytes % (Man) Promyelocytes % (Man) Blast Cells % (Manual) Nucleated RBC % Metamyelocytes Hypochromia Toxic Granulation Platelet Estimate Platelet Comment Polychromasia Poikilocytosis Anisocytosis Microcytosis Macrocytosis Spherocytes Target Cells Tear Drop Cells Ovalocytes Stomatocytes Jose Antonio Cells Acanthocytes (Spur) Fragmented RBCs Schistocytes PT with INR INR PTT (Actin FS) Fibrinogen Puncture Site ABG pH ABG pCO2 at Pt Temp ABG pO2 at Pt Temp ABG HCO3 ABG O2 Sat (Measured) ABG O2 Content ABG Base Excess Atul Test O2 Delivery Device Oxygen Flow Rate Vent Mode Vent Rate PEEP Pressure Support Vent Sodium Potassium Chloride Carbon Dioxide Anion Gap BUN Creatinine Est GFR (CKD-EPI)AfAm Est GFR (CKD-EPI)NonAf POC Glucometer 109 249 225 Random Glucose Lactic Acid Calcium Phosphorus Magnesium Iron TIBC Iron Saturation Unsaturated IBC Ferritin Total Bilirubin AST ALT Alkaline Phosphatase Creatine Kinase Troponin I Total Protein Albumin Prealbumin Triglycerides Cholesterol Total LDL Cholesterol HDL Cholesterol Beta-Hydroxybutyrate Urine Color Urine Appearance Urine pH Ur Specific [place] Urine Protein Urine Glucose (UA) Urine Ketones Urine Blood Urine Nitrite Urine Bilirubin Urine Urobilinogen Ur Leukocyte Esterase Urine WBC (Auto) Urine RBC (Auto) U Epithel Cells (Auto) Urine Bacteria (Auto) Stool Occult Blood Acetone, Qual B-Hydroxybutyrate 03/25/19 03/25/19 03/25/19 05:30 05:30 05:32 WBC 8.6 RBC 3.42 L Hgb 8.9 L Hct 27.2 L MCV 79.4 L MCH 26.1 MCHC 32.8 RDW 23.7 H Plt Count 179 D MPV 8.2 Absolute Neuts (auto) 5.8 Total Counted Neutrophils % 67.7 Neutrophils % (Manual) Band Neutrophils % Lymphocytes % 23.2 Lymphocytes % (Manual) Monocytes % 6.0 Monocytes % (Manual) Eosinophils % 2.2 Eosinophils % (Manual) Basophils % 0.9 Basophils % (Manual) Myelocytes % (Man) Promyelocytes % (Man) Blast Cells % (Manual) Nucleated RBC % 0 Metamyelocytes Hypochromia Toxic Granulation Platelet Estimate Platelet Comment Polychromasia Poikilocytosis Anisocytosis Microcytosis Macrocytosis Spherocytes Target Cells Tear Drop Cells Ovalocytes Stomatocytes Jose Antonio Cells Acanthocytes (Spur) Fragmented RBCs Schistocytes PT with INR INR PTT (Actin FS) Fibrinogen Puncture Site ABG pH ABG pCO2 at Pt Temp ABG pO2 at Pt Temp ABG HCO3 ABG O2 Sat (Measured) ABG O2 Content ABG Base Excess Atul Test O2 Delivery Device Oxygen Flow Rate Vent Mode Vent Rate PEEP Pressure Support Vent Sodium 142 Potassium 3.5 Chloride 104 Carbon Dioxide 31 Anion Gap 7 L BUN 16.2 Creatinine 0.4 L Est GFR (CKD-EPI)AfAm 141.75 Est GFR (CKD-EPI)NonAf 122.30 POC Glucometer 118 Random Glucose 120 H Lactic Acid Calcium 7.2 L Phosphorus 2.0 L Magnesium 1.9 Iron TIBC Iron Saturation Unsaturated IBC Ferritin Total Bilirubin 0.2 AST 16 ALT 10 L Alkaline Phosphatase 184 H Creatine Kinase Troponin I Total Protein 4.6 L Albumin 1.2 L Prealbumin Triglycerides Cholesterol Total LDL Cholesterol HDL Cholesterol Beta-Hydroxybutyrate Urine Color Urine Appearance Urine pH Ur Specific [place] Urine Protein Urine Glucose (UA) Urine Ketones Urine Blood Urine Nitrite Urine Bilirubin Urine Urobilinogen Ur Leukocyte Esterase Urine WBC (Auto) Urine RBC (Auto) U Epithel Cells (Auto) Urine Bacteria (Auto) Stool Occult Blood Acetone, Qual B-Hydroxybutyrate 03/25/19 03/25/19 03/25/19 10:53 12:55 14:23 WBC RBC Hgb Hct MCV MCH MCHC RDW Plt Count MPV Absolute Neuts (auto) Total Counted Neutrophils % Neutrophils % (Manual) Band Neutrophils % Lymphocytes % Lymphocytes % (Manual) Monocytes % Monocytes % (Manual) Eosinophils % Eosinophils % (Manual) Basophils % Basophils % (Manual) Myelocytes % (Man) Promyelocytes % (Man) Blast Cells % (Manual) Nucleated RBC % Metamyelocytes Hypochromia Toxic Granulation Platelet Estimate Platelet Comment Polychromasia Poikilocytosis Anisocytosis Microcytosis Macrocytosis Spherocytes Target Cells Tear Drop Cells Ovalocytes Stomatocytes Wayne Cells Acanthocytes (Spur) Fragmented RBCs Schistocytes PT with INR INR PTT (Actin FS) Fibrinogen Puncture Site ABG pH ABG pCO2 at Pt Temp ABG pO2 at Pt Temp ABG HCO3 ABG O2 Sat (Measured) ABG O2 Content ABG Base Excess Atul Test O2 Delivery Device Oxygen Flow Rate Vent Mode Vent Rate PEEP Pressure Support Vent Sodium 137 Potassium 3.7 Chloride 101 Carbon Dioxide 27 Anion Gap 9 BUN 19.9 H Creatinine 0.6 Est GFR (CKD-EPI)AfAm 124.05 Est GFR (CKD-EPI)NonAf 107.03 POC Glucometer 401 186 Random Glucose 312 H Lactic Acid Calcium 7.3 L Phosphorus Magnesium Iron TIBC Iron Saturation Unsaturated IBC Ferritin Total Bilirubin 0.3 AST 18 ALT 12 L Alkaline Phosphatase 216 H Creatine Kinase Troponin I Total Protein 5.2 L Albumin 1.4 L Prealbumin Triglycerides Cholesterol Total LDL Cholesterol HDL Cholesterol Beta-Hydroxybutyrate Urine Color Urine Appearance Urine pH Ur Specific [place] Urine Protein Urine Glucose (UA) Urine Ketones Urine Blood Urine Nitrite Urine Bilirubin Urine Urobilinogen Ur Leukocyte Esterase Urine WBC (Auto) Urine RBC (Auto) U Epithel Cells (Auto) Urine Bacteria (Auto) Stool Occult Blood Acetone, Qual B-Hydroxybutyrate 03/25/19 03/25/19 03/26/19 16:10 20:48 01:48 WBC RBC Hgb Hct MCV MCH MCHC RDW Plt Count MPV Absolute Neuts (auto) Total Counted Neutrophils % Neutrophils % (Manual) Band Neutrophils % Lymphocytes % Lymphocytes % (Manual) Monocytes % Monocytes % (Manual) Eosinophils % Eosinophils % (Manual) Basophils % Basophils % (Manual) Myelocytes % (Man) Promyelocytes % (Man) Blast Cells % (Manual) Nucleated RBC % Metamyelocytes Hypochromia Toxic Granulation Platelet Estimate Platelet Comment Polychromasia Poikilocytosis Anisocytosis Microcytosis Macrocytosis Spherocytes Target Cells Tear Drop Cells Ovalocytes Stomatocytes Jose Antonio Cells Acanthocytes (Spur) Fragmented RBCs Schistocytes PT with INR INR PTT (Actin FS) Fibrinogen Puncture Site ABG pH ABG pCO2 at Pt Temp ABG pO2 at Pt Temp ABG HCO3 ABG O2 Sat (Measured) ABG O2 Content ABG Base Excess Atul Test O2 Delivery Device Oxygen Flow Rate Vent Mode Vent Rate PEEP Pressure Support Vent Sodium Potassium Chloride Carbon Dioxide Anion Gap BUN Creatinine Est GFR (CKD-EPI)AfAm Est GFR (CKD-EPI)NonAf POC Glucometer [phone] Random Glucose Lactic Acid Calcium Phosphorus Magnesium Iron TIBC Iron Saturation Unsaturated IBC Ferritin Total Bilirubin AST ALT Alkaline Phosphatase Creatine Kinase Troponin I Total Protein Albumin Prealbumin Triglycerides Cholesterol Total LDL Cholesterol HDL Cholesterol Beta-Hydroxybutyrate Urine Color Urine Appearance Urine pH Ur Specific [place] Urine Protein Urine Glucose (UA) Urine Ketones Urine Blood Urine Nitrite Urine Bilirubin Urine Urobilinogen Ur Leukocyte Esterase Urine WBC (Auto) Urine RBC (Auto) U Epithel Cells (Auto) Urine Bacteria (Auto) Stool Occult Blood Acetone, Qual B-Hydroxybutyrate 03/26/19 03/26/19 03/26/19 05:06 06:00 06:00 WBC RBC Hgb Hct MCV MCH MCHC RDW Plt Count MPV Absolute Neuts (auto) Total Counted Neutrophils % Neutrophils % (Manual) Band Neutrophils % Lymphocytes % Lymphocytes % (Manual) Monocytes % Monocytes % (Manual) Eosinophils % Eosinophils % (Manual) Basophils % Basophils % (Manual) Myelocytes % (Man) Promyelocytes % (Man) Blast Cells % (Manual) Nucleated RBC % Metamyelocytes Hypochromia Toxic Granulation Platelet Estimate Platelet Comment Polychromasia Poikilocytosis Anisocytosis Microcytosis Macrocytosis Spherocytes Target Cells Tear Drop Cells Ovalocytes Stomatocytes Jose Antonio Cells Acanthocytes (Spur) Fragmented RBCs Schistocytes PT with INR 11.20 INR 0.95 PTT (Actin FS) 29.7 Fibrinogen Puncture Site ABG pH ABG pCO2 at Pt Temp ABG pO2 at Pt Temp ABG HCO3 ABG O2 Sat (Measured) ABG O2 Content ABG Base Excess Atul Test O2 Delivery Device Oxygen Flow Rate Vent Mode Vent Rate PEEP Pressure Support Vent Sodium 139 Potassium 3.8 Chloride 102 Carbon Dioxide 32 Anion Gap 5 L BUN 14.5 Creatinine 0.3 L Est GFR (CKD-EPI)AfAm 155.82 Est GFR (CKD-EPI)NonAf 134.44 POC Glucometer 153 Random Glucose 151 H Lactic Acid Calcium 7.1 L Phosphorus Magnesium Iron TIBC Iron Saturation Unsaturated IBC Ferritin Total Bilirubin 0.2 AST 15 ALT 9 L Alkaline Phosphatase 155 H Creatine Kinase Troponin I Total Protein 4.3 L Albumin 1.2 L Prealbumin Triglycerides Cholesterol Total LDL Cholesterol HDL Cholesterol Beta-Hydroxybutyrate Urine Color Urine Appearance Urine pH Ur Specific Wrens Urine Protein Urine Glucose (UA) Urine Ketones Urine Blood Urine Nitrite Urine Bilirubin Urine Urobilinogen Ur Leukocyte Esterase Urine WBC (Auto) Urine RBC (Auto) U Epithel Cells (Auto) Urine Bacteria (Auto) Stool Occult Blood Acetone, Qual B-Hydroxybutyrate 03/26/19 03/26/19 03/26/19 06:00 06:00 10:53 WBC 8.5 RBC 2.92 L Hgb 7.6 L Hct 23.5 L MCV 80.5 MCH 26.1 MCHC 32.4 RDW 23.5 H Plt Count 231 D MPV 8.1 Absolute Neuts (auto) 5.4 Total Counted Neutrophils % 63.6 Neutrophils % (Manual) Band Neutrophils % Lymphocytes % 24.4 Lymphocytes % (Manual) Monocytes % 7.8 Monocytes % (Manual) Eosinophils % 3.2 Eosinophils % (Manual) Basophils % 1.0 Basophils % (Manual) Myelocytes % (Man) Promyelocytes % (Man) Blast Cells % (Manual) Nucleated RBC % 0 Metamyelocytes Hypochromia Toxic Granulation Platelet Estimate Platelet Comment Polychromasia Poikilocytosis Anisocytosis Microcytosis Macrocytosis Spherocytes Target Cells Tear Drop Cells Ovalocytes Stomatocytes Wayne Cells Acanthocytes (Spur) Fragmented RBCs Schistocytes PT with INR INR PTT (Actin FS) Fibrinogen Puncture Site ABG pH ABG pCO2 at Pt Temp ABG pO2 at Pt Temp ABG HCO3 ABG O2 Sat (Measured) ABG O2 Content ABG Base Excess Atul Test O2 Delivery Device Oxygen Flow Rate Vent Mode Vent Rate PEEP Pressure Support Vent Sodium Potassium Chloride Carbon Dioxide Anion Gap BUN Creatinine Est GFR (CKD-EPI)AfAm Est GFR (CKD-EPI)NonAf POC Glucometer 356 Random Glucose Lactic Acid 2.4 H* Calcium Phosphorus Magnesium Iron TIBC Iron Saturation Unsaturated IBC Ferritin Total Bilirubin AST ALT Alkaline Phosphatase Creatine Kinase Troponin I Total Protein Albumin Prealbumin Triglycerides Cholesterol Total LDL Cholesterol HDL Cholesterol Beta-Hydroxybutyrate Urine Color Urine Appearance Urine pH Ur Specific Wrens Urine Protein Urine Glucose (UA) Urine Ketones Urine Blood Urine Nitrite Urine Bilirubin Urine Urobilinogen Ur Leukocyte Esterase Urine WBC (Auto) Urine RBC (Auto) U Epithel Cells (Auto) Urine Bacteria (Auto) Stool Occult Blood Acetone, Qual B-Hydroxybutyrate 03/26/19 03/26/19 03/26/19 13:52 18:35 20:40 WBC 8.7 RBC 3.44 L Hgb 9.2 L Hct 28.1 L D MCV 81.7 MCH 26.7 MCHC 32.6 RDW 22.3 H Plt Count 262 MPV 8.1 Absolute Neuts (auto) 5.7 Total Counted Neutrophils % 65.2 Neutrophils % (Manual) Band Neutrophils % Lymphocytes % 20.6 Lymphocytes % (Manual) Monocytes % 9.8 Monocytes % (Manual) Eosinophils % 2.6 Eosinophils % (Manual) Basophils % 1.8 Basophils % (Manual) Myelocytes % (Man) Promyelocytes % (Man) Blast Cells % (Manual) Nucleated RBC % 0 Metamyelocytes Hypochromia Toxic Granulation Platelet Estimate Platelet Comment Polychromasia Poikilocytosis Anisocytosis Microcytosis Macrocytosis Spherocytes Target Cells Tear Drop Cells Ovalocytes Stomatocytes Wayne Cells Acanthocytes (Spur) Fragmented RBCs Schistocytes PT with INR INR PTT (Actin FS) Fibrinogen Puncture Site ABG pH ABG pCO2 at Pt Temp ABG pO2 at Pt Temp ABG HCO3 ABG O2 Sat (Measured) ABG O2 Content ABG Base Excess Atul Test O2 Delivery Device Oxygen Flow Rate Vent Mode Vent Rate PEEP Pressure Support Vent Sodium Potassium Chloride Carbon Dioxide Anion Gap BUN Creatinine Est GFR (CKD-EPI)AfAm Est GFR (CKD-EPI)NonAf POC Glucometer [phone] Random Glucose Lactic Acid Calcium Phosphorus Magnesium Iron TIBC Iron Saturation Unsaturated IBC Ferritin Total Bilirubin AST ALT Alkaline Phosphatase Creatine Kinase Troponin I Total Protein Albumin Prealbumin Triglycerides Cholesterol Total LDL Cholesterol HDL Cholesterol Beta-Hydroxybutyrate Urine Color Urine Appearance Urine pH Ur Specific Wrens Urine Protein Urine Glucose (UA) Urine Ketones Urine Blood Urine Nitrite Urine Bilirubin Urine Urobilinogen Ur Leukocyte Esterase Urine WBC (Auto) Urine RBC (Auto) U Epithel Cells (Auto) Urine Bacteria (Auto) Stool Occult Blood Acetone, Qual B-Hydroxybutyrate 03/26/19 03/27/19 03/27/19 22:42 02:18 06:00 WBC 7.1 RBC 3.22 L Hgb 8.8 L Hct 26.3 L MCV 81.6 MCH 27.2 MCHC 33.3 RDW 22.2 H Plt Count 269 MPV 7.8 Absolute Neuts (auto) 4.3 Total Counted Neutrophils % 60.6 Neutrophils % (Manual) Band Neutrophils % Lymphocytes % 22.8 Lymphocytes % (Manual) Monocytes % 12.0 H Monocytes % (Manual) Eosinophils % 3.9 Eosinophils % (Manual) Basophils % 0.7 Basophils % (Manual) Myelocytes % (Man) Promyelocytes % (Man) Blast Cells % (Manual) Nucleated RBC % 0 Metamyelocytes Hypochromia Toxic Granulation Platelet Estimate Adequate Platelet Comment Giant platelets Polychromasia Poikilocytosis 1+ Anisocytosis 2+ Microcytosis 1+ Macrocytosis Spherocytes 1+ Target Cells 1+ Tear Drop Cells 1+ Ovalocytes Stomatocytes Wayne Cells Acanthocytes (Spur) Fragmented RBCs Schistocytes PT with INR INR PTT (Actin FS) Fibrinogen Puncture Site ABG pH ABG pCO2 at Pt Temp ABG pO2 at Pt Temp ABG HCO3 ABG O2 Sat (Measured) ABG O2 Content ABG Base Excess Atul Test O2 Delivery Device Oxygen Flow Rate Vent Mode Vent Rate PEEP Pressure Support Vent Sodium Potassium Chloride Carbon Dioxide Anion Gap BUN Creatinine Est GFR (CKD-EPI)AfAm Est GFR (CKD-EPI)NonAf POC Glucometer 122 173 Random Glucose Lactic Acid Calcium Phosphorus Magnesium Iron TIBC Iron Saturation Unsaturated IBC Ferritin Total Bilirubin AST ALT Alkaline Phosphatase Creatine Kinase Troponin I Total Protein Albumin Prealbumin Triglycerides Cholesterol Total LDL Cholesterol HDL Cholesterol Beta-Hydroxybutyrate Urine Color Urine Appearance Urine pH Ur Specific Wrens Urine Protein Urine Glucose (UA) Urine Ketones Urine Blood Urine Nitrite Urine Bilirubin Urine Urobilinogen Ur Leukocyte Esterase Urine WBC (Auto) Urine RBC (Auto) U Epithel Cells (Auto) Urine Bacteria (Auto) Stool Occult Blood Acetone, Qual B-Hydroxybutyrate 03/27/19 03/27/19 03/27/19 06:00 06:43 11:10 WBC RBC Hgb Hct MCV MCH MCHC RDW Plt Count MPV Absolute Neuts (auto) Total Counted Neutrophils % Neutrophils % (Manual) Band Neutrophils % Lymphocytes % Lymphocytes % (Manual) Monocytes % Monocytes % (Manual) Eosinophils % Eosinophils % (Manual) Basophils % Basophils % (Manual) Myelocytes % (Man) Promyelocytes % (Man) Blast Cells % (Manual) Nucleated RBC % Metamyelocytes Hypochromia Toxic Granulation Platelet Estimate Platelet Comment Polychromasia Poikilocytosis Anisocytosis Microcytosis Macrocytosis Spherocytes Target Cells Tear Drop Cells Ovalocytes Stomatocytes Jose Antonio Cells Acanthocytes (Spur) Fragmented RBCs Schistocytes PT with INR INR PTT (Actin FS) Fibrinogen Puncture Site ABG pH ABG pCO2 at Pt Temp ABG pO2 at Pt Temp ABG HCO3 ABG O2 Sat (Measured) ABG O2 Content ABG Base Excess Atul Test O2 Delivery Device Oxygen Flow Rate Vent Mode Vent Rate PEEP Pressure Support Vent Sodium 139 Potassium 3.8 Chloride 102 Carbon Dioxide 31 Anion Gap 5 L BUN 16.5 Creatinine 0.3 L Est GFR (CKD-EPI)AfAm 155.82 Est GFR (CKD-EPI)NonAf 134.44 POC Glucometer 311 254 Random Glucose 260 H Lactic Acid Calcium 7.3 L Phosphorus 1.2 L Magnesium 1.8 Iron TIBC Iron Saturation Unsaturated IBC Ferritin Total Bilirubin 0.2 AST 19 ALT 10 L Alkaline Phosphatase 157 H Creatine Kinase Troponin I Total Protein 4.5 L Albumin 1.2 L Prealbumin Triglycerides Cholesterol Total LDL Cholesterol HDL Cholesterol Beta-Hydroxybutyrate Urine Color Urine Appearance Urine pH Ur Specific Wrens Urine Protein Urine Glucose (UA) Urine Ketones Urine Blood Urine Nitrite Urine Bilirubin Urine Urobilinogen Ur Leukocyte Esterase Urine WBC (Auto) Urine RBC (Auto) U Epithel Cells (Auto) Urine Bacteria (Auto) Stool Occult Blood Acetone, Qual B-Hydroxybutyrate 03/27/19 03/27/19 03/27/19 14:16 18:17 21:18 WBC RBC Hgb Hct MCV MCH MCHC RDW Plt Count MPV Absolute Neuts (auto) Total Counted Neutrophils % Neutrophils % (Manual) Band Neutrophils % Lymphocytes % Lymphocytes % (Manual) Monocytes % Monocytes % (Manual) Eosinophils % Eosinophils % (Manual) Basophils % Basophils % (Manual) Myelocytes % (Man) Promyelocytes % (Man) Blast Cells % (Manual) Nucleated RBC % Metamyelocytes Hypochromia Toxic Granulation Platelet Estimate Platelet Comment Polychromasia Poikilocytosis Anisocytosis Microcytosis Macrocytosis Spherocytes Target Cells Tear Drop Cells Ovalocytes Stomatocytes Wayne Cells Acanthocytes (Spur) Fragmented RBCs Schistocytes PT with INR INR PTT (Actin FS) Fibrinogen Puncture Site ABG pH ABG pCO2 at Pt Temp ABG pO2 at Pt Temp ABG HCO3 ABG O2 Sat (Measured) ABG O2 Content ABG Base Excess Atul Test O2 Delivery Device Oxygen Flow Rate Vent Mode Vent Rate PEEP Pressure Support Vent Sodium Potassium Chloride Carbon Dioxide Anion Gap BUN Creatinine Est GFR (CKD-EPI)AfAm Est GFR (CKD-EPI)NonAf POC Glucometer [phone] Random Glucose Lactic Acid Calcium Phosphorus Magnesium Iron TIBC Iron Saturation Unsaturated IBC Ferritin Total Bilirubin AST ALT Alkaline Phosphatase Creatine Kinase Troponin I Total Protein Albumin Prealbumin Triglycerides Cholesterol Total LDL Cholesterol HDL Cholesterol Beta-Hydroxybutyrate Urine Color Urine Appearance Urine pH Ur Specific Wrens Urine Protein Urine Glucose (UA) Urine Ketones Urine Blood Urine Nitrite Urine Bilirubin Urine Urobilinogen Ur Leukocyte Esterase Urine WBC (Auto) Urine RBC (Auto) U Epithel Cells (Auto) Urine Bacteria (Auto) Stool Occult Blood Acetone, Qual B-Hydroxybutyrate 03/28/19 03/28/19 03/28/19 03:32 05:50 05:50 WBC 7.5 RBC 3.28 L Hgb 8.8 L Hct 27.3 L MCV 83.1 MCH 26.9 MCHC 32.4 RDW 22.9 H Plt Count 409 D MPV 7.8 Absolute Neuts (auto) 4.1 Total Counted Neutrophils % 54.9 Neutrophils % (Manual) Band Neutrophils % Lymphocytes % 26.7 Lymphocytes % (Manual) Monocytes % 13.0 H Monocytes % (Manual) Eosinophils % 3.9 Eosinophils % (Manual) Basophils % 1.5 Basophils % (Manual) Myelocytes % (Man) Promyelocytes % (Man) Blast Cells % (Manual) Nucleated RBC % 0 Metamyelocytes Hypochromia Toxic Granulation Platelet Estimate Platelet Comment Polychromasia Poikilocytosis Anisocytosis Microcytosis Macrocytosis Spherocytes Target Cells Tear Drop Cells Ovalocytes Stomatocytes Jose Antonio Cells Acanthocytes (Spur) Fragmented RBCs Schistocytes PT with INR INR PTT (Actin FS) Fibrinogen Puncture Site ABG pH ABG pCO2 at Pt Temp ABG pO2 at Pt Temp ABG HCO3 ABG O2 Sat (Measured) ABG O2 Content ABG Base Excess Atul Test O2 Delivery Device Oxygen Flow Rate Vent Mode Vent Rate PEEP Pressure Support Vent Sodium 141 Potassium 3.8 Chloride 102 Carbon Dioxide 33 H Anion Gap 6 L BUN 13.4 Creatinine 0.4 L Est GFR (CKD-EPI)AfAm 141.75 Est GFR (CKD-EPI)NonAf 122.30 POC Glucometer 218 Random Glucose 251 H Lactic Acid Calcium 7.6 L Phosphorus 1.9 L Magnesium 2.0 Iron TIBC Iron Saturation Unsaturated IBC Ferritin Total Bilirubin 0.2 AST 25 ALT 13 Alkaline Phosphatase 163 H Creatine Kinase Troponin I Total Protein 4.9 L Albumin 1.4 L Prealbumin Triglycerides Cholesterol Total LDL Cholesterol HDL Cholesterol Beta-Hydroxybutyrate Urine Color Urine Appearance Urine pH Ur Specific Wrens Urine Protein Urine Glucose (UA) Urine Ketones Urine Blood Urine Nitrite Urine Bilirubin Urine Urobilinogen Ur Leukocyte Esterase Urine WBC (Auto) Urine RBC (Auto) U Epithel Cells (Auto) Urine Bacteria (Auto) Stool Occult Blood Acetone, Qual B-Hydroxybutyrate 03/28/19 03/28/19 03/28/19 06:22 10:07 10:59 WBC RBC Hgb Hct MCV MCH MCHC RDW Plt Count MPV Absolute Neuts (auto) Total Counted Neutrophils % Neutrophils % (Manual) Band Neutrophils % Lymphocytes % Lymphocytes % (Manual) Monocytes % Monocytes % (Manual) Eosinophils % Eosinophils % (Manual) Basophils % Basophils % (Manual) Myelocytes % (Man) Promyelocytes % (Man) Blast Cells % (Manual) Nucleated RBC % Metamyelocytes Hypochromia Toxic Granulation Platelet Estimate Platelet Comment Polychromasia Poikilocytosis Anisocytosis Microcytosis Macrocytosis Spherocytes Target Cells Tear Drop Cells Ovalocytes Stomatocytes Jose Antonio Cells Acanthocytes (Spur) Fragmented RBCs Schistocytes PT with INR INR PTT (Actin FS) Fibrinogen Puncture Site ABG pH ABG pCO2 at Pt Temp ABG pO2 at Pt Temp ABG HCO3 ABG O2 Sat (Measured) ABG O2 Content ABG Base Excess Atul Test O2 Delivery Device Oxygen Flow Rate Vent Mode Vent Rate PEEP Pressure Support Vent Sodium Potassium Chloride Carbon Dioxide Anion Gap BUN Creatinine Est GFR (CKD-EPI)AfAm Est GFR (CKD-EPI)NonAf POC Glucometer 222 136 Random Glucose Lactic Acid Calcium Phosphorus Magnesium Iron TIBC Iron Saturation Unsaturated IBC Ferritin Total Bilirubin AST ALT Alkaline Phosphatase Creatine Kinase Troponin I Total Protein Albumin Prealbumin Triglycerides Cholesterol Total LDL Cholesterol HDL Cholesterol Beta-Hydroxybutyrate Urine Color Yellow Urine Appearance Clear Urine pH 6.0 Ur Specific Wrens 1.029 Urine Protein Trace Urine Glucose (UA) Negative Urine Ketones Trace Urine Blood Nht Urine Nitrite Negative Urine Bilirubin Negative Urine Urobilinogen 0.2 Ur Leukocyte Esterase Negative Urine WBC (Auto) #forced Urine RBC (Auto) U Epithel Cells (Auto) Urine Bacteria (Auto) Stool Occult Blood Acetone, Qual B-Hydroxybutyrate 03/28/19 03/28/19 03/28/19 14:56 14:58 18:18 WBC RBC Hgb Hct MCV MCH MCHC RDW Plt Count MPV Absolute Neuts (auto) Total Counted Neutrophils % Neutrophils % (Manual) Band Neutrophils % Lymphocytes % Lymphocytes % (Manual) Monocytes % Monocytes % (Manual) Eosinophils % Eosinophils % (Manual) Basophils % Basophils % (Manual) Myelocytes % (Man) Promyelocytes % (Man) Blast Cells % (Manual) Nucleated RBC % Metamyelocytes Hypochromia Toxic Granulation Platelet Estimate Platelet Comment Polychromasia Poikilocytosis Anisocytosis Microcytosis Macrocytosis Spherocytes Target Cells Tear Drop Cells Ovalocytes Stomatocytes Wayne Cells Acanthocytes (Spur) Fragmented RBCs Schistocytes PT with INR INR PTT (Actin FS) Fibrinogen Puncture Site ABG pH ABG pCO2 at Pt Temp ABG pO2 at Pt Temp ABG HCO3 ABG O2 Sat (Measured) ABG O2 Content ABG Base Excess Atul Test O2 Delivery Device Oxygen Flow Rate Vent Mode Vent Rate PEEP Pressure Support Vent Sodium Potassium Chloride Carbon Dioxide Anion Gap BUN Creatinine Est GFR (CKD-EPI)AfAm Est GFR (CKD-EPI)NonAf POC Glucometer [phone] Random Glucose Lactic Acid Calcium Phosphorus Magnesium Iron TIBC Iron Saturation Unsaturated IBC Ferritin Total Bilirubin AST ALT Alkaline Phosphatase Creatine Kinase Troponin I Total Protein Albumin Prealbumin Triglycerides Cholesterol Total LDL Cholesterol HDL Cholesterol Beta-Hydroxybutyrate Urine Color Urine Appearance Urine pH Ur Specific Wrens Urine Protein Urine Glucose (UA) Urine Ketones Urine Blood Urine Nitrite Urine Bilirubin Urine Urobilinogen Ur Leukocyte Esterase Urine WBC (Auto) Urine RBC (Auto) U Epithel Cells (Auto) Urine Bacteria (Auto) Stool Occult Blood Acetone, Qual B-Hydroxybutyrate 03/28/19 03/28/19 03/29/19 21:40 23:04 01:34 WBC RBC Hgb Hct MCV MCH MCHC RDW Plt Count MPV Absolute Neuts (auto) Total Counted Neutrophils % Neutrophils % (Manual) Band Neutrophils % Lymphocytes % Lymphocytes % (Manual) Monocytes % Monocytes % (Manual) Eosinophils % Eosinophils % (Manual) Basophils % Basophils % (Manual) Myelocytes % (Man) Promyelocytes % (Man) Blast Cells % (Manual) Nucleated RBC % Metamyelocytes Hypochromia Toxic Granulation Platelet Estimate Platelet Comment Polychromasia Poikilocytosis Anisocytosis Microcytosis Macrocytosis Spherocytes Target Cells Tear Drop Cells Ovalocytes Stomatocytes Wayne Cells Acanthocytes (Spur) Fragmented RBCs Schistocytes PT with INR INR PTT (Actin FS) Fibrinogen Puncture Site ABG pH ABG pCO2 at Pt Temp ABG pO2 at Pt Temp ABG HCO3 ABG O2 Sat (Measured) ABG O2 Content ABG Base Excess Atul Test O2 Delivery Device Oxygen Flow Rate Vent Mode Vent Rate PEEP Pressure Support Vent Sodium Potassium Chloride Carbon Dioxide Anion Gap BUN Creatinine Est GFR (CKD-EPI)AfAm Est GFR (CKD-EPI)NonAf POC Glucometer [phone] Random Glucose Lactic Acid Calcium Phosphorus Magnesium Iron TIBC Iron Saturation Unsaturated IBC Ferritin Total Bilirubin AST ALT Alkaline Phosphatase Creatine Kinase Troponin I Total Protein Albumin Prealbumin Triglycerides Cholesterol Total LDL Cholesterol HDL Cholesterol Beta-Hydroxybutyrate Urine Color Urine Appearance Urine pH Ur Specific Wrens Urine Protein Urine Glucose (UA) Urine Ketones Urine Blood Urine Nitrite Urine Bilirubin Urine Urobilinogen Ur Leukocyte Esterase Urine WBC (Auto) Urine RBC (Auto) U Epithel Cells (Auto) Urine Bacteria (Auto) Stool Occult Blood Acetone, Qual B-Hydroxybutyrate 03/29/19 03/29/19 03/29/19 05:08 06:00 06:00 WBC 8.4 RBC 3.08 L Hgb 8.5 L Hct 25.6 L MCV 83.2 MCH 27.8 MCHC 33.4 RDW 23.7 H Plt Count 511 H D MPV 7.6 Absolute Neuts (auto) Total Counted Neutrophils % Neutrophils % (Manual) Band Neutrophils % Lymphocytes % Lymphocytes % (Manual) Monocytes % Monocytes % (Manual) Eosinophils % Eosinophils % (Manual) Basophils % Basophils % (Manual) Myelocytes % (Man) Promyelocytes % (Man) Blast Cells % (Manual) Nucleated RBC % Metamyelocytes Hypochromia Toxic Granulation Platelet Estimate Platelet Comment Polychromasia Poikilocytosis Anisocytosis Microcytosis Macrocytosis Spherocytes Target Cells Tear Drop Cells Ovalocytes Stomatocytes Wayne Cells Acanthocytes (Spur) Fragmented RBCs Schistocytes PT with INR INR PTT (Actin FS) Fibrinogen Puncture Site ABG pH ABG pCO2 at Pt Temp ABG pO2 at Pt Temp ABG HCO3 ABG O2 Sat (Measured) ABG O2 Content ABG Base Excess Atul Test O2 Delivery Device Oxygen Flow Rate Vent Mode Vent Rate PEEP Pressure Support Vent Sodium 140 Potassium 3.9 Chloride 99 Carbon Dioxide 35 H Anion Gap 6 L BUN 16.3 Creatinine 0.4 L Est GFR (CKD-EPI)AfAm 141.75 Est GFR (CKD-EPI)NonAf 122.30 POC Glucometer 150 Random Glucose 264 H Lactic Acid Calcium 7.4 L Phosphorus 1.9 L Magnesium 2.1 Iron TIBC Iron Saturation Unsaturated IBC Ferritin Total Bilirubin 0.2 AST 25 ALT 12 L Alkaline Phosphatase 156 H Creatine Kinase Troponin I Total Protein 5.2 L Albumin 1.5 L Prealbumin Triglycerides Cholesterol Total LDL Cholesterol HDL Cholesterol Beta-Hydroxybutyrate Urine Color Urine Appearance Urine pH Ur Specific Wrens Urine Protein Urine Glucose (UA) Urine Ketones Urine Blood Urine Nitrite Urine Bilirubin Urine Urobilinogen Ur Leukocyte Esterase Urine WBC (Auto) Urine RBC (Auto) U Epithel Cells (Auto) Urine Bacteria (Auto) Stool Occult Blood Acetone, Qual B-Hydroxybutyrate 03/29/19 03/29/19 03/29/19 10:32 10:34 14:03 WBC RBC Hgb Hct MCV MCH MCHC RDW Plt Count MPV Absolute Neuts (auto) Total Counted Neutrophils % Neutrophils % (Manual) Band Neutrophils % Lymphocytes % Lymphocytes % (Manual) Monocytes % Monocytes % (Manual) Eosinophils % Eosinophils % (Manual) Basophils % Basophils % (Manual) Myelocytes % (Man) Promyelocytes % (Man) Blast Cells % (Manual) Nucleated RBC % Metamyelocytes Hypochromia Toxic Granulation Platelet Estimate Platelet Comment Polychromasia Poikilocytosis Anisocytosis Microcytosis Macrocytosis Spherocytes Target Cells Tear Drop Cells Ovalocytes Stomatocytes Jose Antonio Cells Acanthocytes (Spur) Fragmented RBCs Schistocytes PT with INR INR PTT (Actin FS) Fibrinogen Puncture Site ABG pH ABG pCO2 at Pt Temp ABG pO2 at Pt Temp ABG HCO3 ABG O2 Sat (Measured) ABG O2 Content ABG Base Excess Atul Test O2 Delivery Device Oxygen Flow Rate Vent Mode Vent Rate PEEP Pressure Support Vent Sodium Potassium Chloride Carbon Dioxide Anion Gap BUN Creatinine Est GFR (CKD-EPI)AfAm Est GFR (CKD-EPI)NonAf POC Glucometer [phone] Random Glucose Lactic Acid Calcium Phosphorus Magnesium Iron TIBC Iron Saturation Unsaturated IBC Ferritin Total Bilirubin AST ALT Alkaline Phosphatase Creatine Kinase Troponin I Total Protein Albumin Prealbumin Triglycerides Cholesterol Total LDL Cholesterol HDL Cholesterol Beta-Hydroxybutyrate Urine Color Urine Appearance Urine pH Ur Specific Wrens Urine Protein Urine Glucose (UA) Urine Ketones Urine Blood Urine Nitrite Urine Bilirubin Urine Urobilinogen Ur Leukocyte Esterase Urine WBC (Auto) Urine RBC (Auto) U Epithel Cells (Auto) Urine Bacteria (Auto) Stool Occult Blood Acetone, Qual B-Hydroxybutyrate 03/29/19 03/29/19 03/29/19 18:00 19:41 21:54 WBC RBC Hgb Hct MCV MCH MCHC RDW Plt Count MPV Absolute Neuts (auto) Total Counted Neutrophils % Neutrophils % (Manual) Band Neutrophils % Lymphocytes % Lymphocytes % (Manual) Monocytes % Monocytes % (Manual) Eosinophils % Eosinophils % (Manual) Basophils % Basophils % (Manual) Myelocytes % (Man) Promyelocytes % (Man) Blast Cells % (Manual) Nucleated RBC % Metamyelocytes Hypochromia Toxic Granulation Platelet Estimate Platelet Comment Polychromasia Poikilocytosis Anisocytosis Microcytosis Macrocytosis Spherocytes Target Cells Tear Drop Cells Ovalocytes Stomatocytes Jose Antonio Cells Acanthocytes (Spur) Fragmented RBCs Schistocytes PT with INR INR PTT (Actin FS) Fibrinogen Puncture Site ABG pH ABG pCO2 at Pt Temp ABG pO2 at Pt Temp ABG HCO3 ABG O2 Sat (Measured) ABG O2 Content ABG Base Excess Atul Test O2 Delivery Device Oxygen Flow Rate Vent Mode Vent Rate PEEP Pressure Support Vent Sodium Potassium Chloride Carbon Dioxide Anion Gap BUN Creatinine Est GFR (CKD-EPI)AfAm Est GFR (CKD-EPI)NonAf POC Glucometer 70 [phone] Random Glucose Lactic Acid Calcium Phosphorus Magnesium Iron TIBC Iron Saturation Unsaturated IBC Ferritin Total Bilirubin AST ALT Alkaline Phosphatase Creatine Kinase Troponin I Total Protein Albumin Prealbumin Triglycerides Cholesterol Total LDL Cholesterol HDL Cholesterol Beta-Hydroxybutyrate Urine Color Urine Appearance Urine pH Ur Specific Wrens Urine Protein Urine Glucose (UA) Urine Ketones Urine Blood Urine Nitrite Urine Bilirubin Urine Urobilinogen Ur Leukocyte Esterase Urine WBC (Auto) Urine RBC (Auto) U Epithel Cells (Auto) Urine Bacteria (Auto) Stool Occult Blood Acetone, Qual B-Hydroxybutyrate 03/30/19 03/30/19 03/30/19 01:39 06:06 06:39 WBC RBC Hgb Hct MCV MCH MCHC RDW Plt Count MPV Absolute Neuts (auto) Total Counted Neutrophils % Neutrophils % (Manual) Band Neutrophils % Lymphocytes % Lymphocytes % (Manual) Monocytes % Monocytes % (Manual) Eosinophils % Eosinophils % (Manual) Basophils % Basophils % (Manual) Myelocytes % (Man) Promyelocytes % (Man) Blast Cells % (Manual) Nucleated RBC % Metamyelocytes Hypochromia Toxic Granulation Platelet Estimate Platelet Comment Polychromasia Poikilocytosis Anisocytosis Microcytosis Macrocytosis Spherocytes Target Cells Tear Drop Cells Ovalocytes Stomatocytes Wayne Cells Acanthocytes (Spur) Fragmented RBCs Schistocytes PT with INR INR PTT (Actin FS) Fibrinogen Puncture Site ABG pH ABG pCO2 at Pt Temp ABG pO2 at Pt Temp ABG HCO3 ABG O2 Sat (Measured) ABG O2 Content ABG Base Excess Atul Test O2 Delivery Device Oxygen Flow Rate Vent Mode Vent Rate PEEP Pressure Support Vent Sodium Potassium Chloride Carbon Dioxide Anion Gap BUN Creatinine Est GFR (CKD-EPI)AfAm Est GFR (CKD-EPI)NonAf POC Glucometer [phone] Random Glucose Lactic Acid Calcium Phosphorus Magnesium Iron TIBC Iron Saturation Unsaturated IBC Ferritin Total Bilirubin AST ALT Alkaline Phosphatase Creatine Kinase Troponin I Total Protein Albumin Prealbumin Triglycerides Cholesterol Total LDL Cholesterol HDL Cholesterol Beta-Hydroxybutyrate Urine Color Urine Appearance Urine pH Ur Specific Wrens Urine Protein Urine Glucose (UA) Urine Ketones Urine Blood Urine Nitrite Urine Bilirubin Urine Urobilinogen Ur Leukocyte Esterase Urine WBC (Auto) Urine RBC (Auto) U Epithel Cells (Auto) Urine Bacteria (Auto) Stool Occult Blood Acetone, Qual B-Hydroxybutyrate 03/30/19 03/30/19 03/30/19 08:50 08:50 10:29 WBC String 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 RBC String 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 Hgb String 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 Hct String 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 MCV String 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 MCH String 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 MCHC String 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 RDW String 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 Plt Count String 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 MPV String 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 Absolute Neuts (auto) String 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 Total Counted Neutrophils % String 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 Neutrophils % (Manual) Band Neutrophils % Lymphocytes % String 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 Lymphocytes % (Manual) Monocytes % String 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 Monocytes % (Manual) Eosinophils % String 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 Eosinophils % (Manual) Basophils % String 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 Basophils % (Manual) Myelocytes % (Man) Promyelocytes % (Man) Blast Cells % (Manual) Nucleated RBC % String 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 Metamyelocytes Hypochromia Toxic Granulation Platelet Estimate Platelet Comment Polychromasia Poikilocytosis Anisocytosis Microcytosis Macrocytosis Spherocytes Target Cells Tear Drop Cells Ovalocytes Stomatocytes Wayne Cells Acanthocytes (Spur) Fragmented RBCs Schistocytes PT with INR INR PTT (Actin FS) Fibrinogen Puncture Site ABG pH ABG pCO2 at Pt Temp ABG pO2 at Pt Temp ABG HCO3 ABG O2 Sat (Measured) ABG O2 Content ABG Base Excess Atul Test O2 Delivery Device Oxygen Flow Rate Vent Mode Vent Rate PEEP Pressure Support Vent Sodium 147 H Potassium 3.5 Chloride 105 Carbon Dioxide 34 H Anion Gap 7 L BUN 17.6 Creatinine 0.3 L Est GFR (CKD-EPI)AfAm 155.82 Est GFR (CKD-EPI)NonAf 134.44 POC Glucometer 222 Random Glucose 99 Lactic Acid Calcium 7.9 L Phosphorus 2.5 Magnesium 2.2 Iron TIBC Iron Saturation Unsaturated IBC Ferritin Total Bilirubin 0.2 AST 21 ALT 11 L Alkaline Phosphatase 137 H Creatine Kinase Troponin I Total Protein 5.2 L Albumin 1.5 L Prealbumin Triglycerides Cholesterol Total LDL Cholesterol HDL Cholesterol Beta-Hydroxybutyrate Urine Color Urine Appearance Urine pH Ur Specific Wrens Urine Protein Urine Glucose (UA) Urine Ketones Urine Blood Urine Nitrite Urine Bilirubin Urine Urobilinogen Ur Leukocyte Esterase Urine WBC (Auto) Urine RBC (Auto) U Epithel Cells (Auto) Urine Bacteria (Auto) Stool Occult Blood Acetone, Qual B-Hydroxybutyrate 03/30/19 03/30/19 03/30/19 14:32 18:21 21:53 WBC RBC Hgb Hct MCV MCH MCHC RDW Plt Count MPV Absolute Neuts (auto) Total Counted Neutrophils % Neutrophils % (Manual) Band Neutrophils % Lymphocytes % Lymphocytes % (Manual) Monocytes % Monocytes % (Manual) Eosinophils % Eosinophils % (Manual) Basophils % Basophils % (Manual) Myelocytes % (Man) Promyelocytes % (Man) Blast Cells % (Manual) Nucleated RBC % Metamyelocytes Hypochromia Toxic Granulation Platelet Estimate Platelet Comment Polychromasia Poikilocytosis Anisocytosis Microcytosis Macrocytosis Spherocytes Target Cells Tear Drop Cells Ovalocytes Stomatocytes Jose Antonio Cells Acanthocytes (Spur) Fragmented RBCs Schistocytes PT with INR INR PTT (Actin FS) Fibrinogen Puncture Site ABG pH ABG pCO2 at Pt Temp ABG pO2 at Pt Temp ABG HCO3 ABG O2 Sat (Measured) ABG O2 Content ABG Base Excess Atul Test O2 Delivery Device Oxygen Flow Rate Vent Mode Vent Rate PEEP Pressure Support Vent Sodium Potassium Chloride Carbon Dioxide Anion Gap BUN Creatinine Est GFR (CKD-EPI)AfAm Est GFR (CKD-EPI)NonAf POC Glucometer 138 330 110 Random Glucose Lactic Acid Calcium Phosphorus Magnesium Iron TIBC Iron Saturation Unsaturated IBC Ferritin Total Bilirubin AST ALT Alkaline Phosphatase Creatine Kinase Troponin I Total Protein Albumin Prealbumin Triglycerides Cholesterol Total LDL Cholesterol HDL Cholesterol Beta-Hydroxybutyrate Urine Color Urine Appearance Urine pH Ur Specific Wrens Urine Protein Urine Glucose (UA) Urine Ketones Urine Blood Urine Nitrite Urine Bilirubin Urine Urobilinogen Ur Leukocyte Esterase Urine WBC (Auto) Urine RBC (Auto) U Epithel Cells (Auto) Urine Bacteria (Auto) Stool Occult Blood Acetone, Qual B-Hydroxybutyrate 03/31/19 03/31/19 03/31/19 02:50 06:00 06:00 WBC 7.7 RBC 2.58 L Hgb 7.1 L Hct 22.0 L MCV 85.0 MCH 27.4 MCHC 32.3 RDW 24.3 H Plt Count 540 H MPV 7.7 Absolute Neuts (auto) 6.0 Total Counted Neutrophils % 77.6 D Neutrophils % (Manual) Band Neutrophils % Lymphocytes % 12.9 D Lymphocytes % (Manual) Monocytes % 7.1 Monocytes % (Manual) Eosinophils % 0.6 D Eosinophils % (Manual) Basophils % 1.8 Basophils % (Manual) Myelocytes % (Man) Promyelocytes % (Man) Blast Cells % (Manual) Nucleated RBC % 0 Metamyelocytes Hypochromia Toxic Granulation Platelet Estimate Platelet Comment Polychromasia Poikilocytosis Anisocytosis Microcytosis Macrocytosis Spherocytes Target Cells Tear Drop Cells Ovalocytes Stomatocytes Jose Antonio Cells Acanthocytes (Spur) Fragmented RBCs Schistocytes PT with INR INR PTT (Actin FS) Fibrinogen Puncture Site ABG pH ABG pCO2 at Pt Temp ABG pO2 at Pt Temp ABG HCO3 ABG O2 Sat (Measured) ABG O2 Content ABG Base Excess Atul Test O2 Delivery Device Oxygen Flow Rate Vent Mode Vent Rate PEEP Pressure Support Vent Sodium 143 Potassium 3.1 L Chloride 105 Carbon Dioxide 26 Anion Gap 12 BUN 15.9 Creatinine 0.5 L Est GFR (CKD-EPI)AfAm 131.72 Est GFR (CKD-EPI)NonAf 113.65 POC Glucometer 387 Random Glucose 157 H Lactic Acid Calcium 7.6 L Phosphorus 1.7 L Magnesium 2.0 Iron TIBC Iron Saturation Unsaturated IBC Ferritin Total Bilirubin 0.3 AST 19 ALT 13 Alkaline Phosphatase 130 H Creatine Kinase Troponin I Total Protein 5.0 L Albumin 1.6 L Prealbumin Triglycerides Cholesterol Total LDL Cholesterol HDL Cholesterol Beta-Hydroxybutyrate Urine Color Urine Appearance Urine pH Ur Specific Wrens Urine Protein Urine Glucose (UA) Urine Ketones Urine Blood Urine Nitrite Urine Bilirubin Urine Urobilinogen Ur Leukocyte Esterase Urine WBC (Auto) Urine RBC (Auto) U Epithel Cells (Auto) Urine Bacteria (Auto) Stool Occult Blood Acetone, Qual B-Hydroxybutyrate 03/31/19 03/31/19 03/31/19 06:43 12:18 15:09 WBC RBC Hgb Hct MCV MCH MCHC RDW Plt Count MPV Absolute Neuts (auto) Total Counted Neutrophils % Neutrophils % (Manual) Band Neutrophils % Lymphocytes % Lymphocytes % (Manual) Monocytes % Monocytes % (Manual) Eosinophils % Eosinophils % (Manual) Basophils % Basophils % (Manual) Myelocytes % (Man) Promyelocytes % (Man) Blast Cells % (Manual) Nucleated RBC % Metamyelocytes Hypochromia Toxic Granulation Platelet Estimate Platelet Comment Polychromasia Poikilocytosis Anisocytosis Microcytosis Macrocytosis Spherocytes Target Cells Tear Drop Cells Ovalocytes Stomatocytes Jose Antonio Cells Acanthocytes (Spur) Fragmented RBCs Schistocytes PT with INR INR PTT (Actin FS) Fibrinogen Puncture Site ABG pH ABG pCO2 at Pt Temp ABG pO2 at Pt Temp ABG HCO3 ABG O2 Sat (Measured) ABG O2 Content ABG Base Excess Atul Test O2 Delivery Device Oxygen Flow Rate Vent Mode Vent Rate PEEP Pressure Support Vent Sodium Potassium Chloride Carbon Dioxide Anion Gap BUN Creatinine Est GFR (CKD-EPI)AfAm Est GFR (CKD-EPI)NonAf POC Glucometer [phone] Random Glucose Lactic Acid Calcium Phosphorus Magnesium Iron TIBC Iron Saturation Unsaturated IBC Ferritin Total Bilirubin AST ALT Alkaline Phosphatase Creatine Kinase Troponin I Total Protein Albumin Prealbumin Triglycerides Cholesterol Total LDL Cholesterol HDL Cholesterol Beta-Hydroxybutyrate Urine Color Urine Appearance Urine pH Ur Specific Wrens Urine Protein Urine Glucose (UA) Urine Ketones Urine Blood Urine Nitrite Urine Bilirubin Urine Urobilinogen Ur Leukocyte Esterase Urine WBC (Auto) Urine RBC (Auto) U Epithel Cells (Auto) Urine Bacteria (Auto) Stool Occult Blood Acetone, Qual B-Hydroxybutyrate 03/31/19 03/31/19 04/01/19 17:22 22:27 02:36 WBC RBC Hgb Hct MCV MCH MCHC RDW Plt Count MPV Absolute Neuts (auto) Total Counted Neutrophils % Neutrophils % (Manual) Band Neutrophils % Lymphocytes % Lymphocytes % (Manual) Monocytes % Monocytes % (Manual) Eosinophils % Eosinophils % (Manual) Basophils % Basophils % (Manual) Myelocytes % (Man) Promyelocytes % (Man) Blast Cells % (Manual) Nucleated RBC % Metamyelocytes Hypochromia Toxic Granulation Platelet Estimate Platelet Comment Polychromasia Poikilocytosis Anisocytosis Microcytosis Macrocytosis Spherocytes Target Cells Tear Drop Cells Ovalocytes Stomatocytes Wayne Cells Acanthocytes (Spur) Fragmented RBCs Schistocytes PT with INR INR PTT (Actin FS) Fibrinogen Puncture Site ABG pH ABG pCO2 at Pt Temp ABG pO2 at Pt Temp ABG HCO3 ABG O2 Sat (Measured) ABG O2 Content ABG Base Excess Atul Test O2 Delivery Device Oxygen Flow Rate Vent Mode Vent Rate PEEP Pressure Support Vent Sodium Potassium Chloride Carbon Dioxide Anion Gap BUN Creatinine Est GFR (CKD-EPI)AfAm Est GFR (CKD-EPI)NonAf POC Glucometer [phone] Random Glucose Lactic Acid Calcium Phosphorus Magnesium Iron TIBC Iron Saturation Unsaturated IBC Ferritin Total Bilirubin AST ALT Alkaline Phosphatase Creatine Kinase Troponin I Total Protein Albumin Prealbumin Triglycerides Cholesterol Total LDL Cholesterol HDL Cholesterol Beta-Hydroxybutyrate Urine Color Urine Appearance Urine pH Ur Specific Wrens Urine Protein Urine Glucose (UA) Urine Ketones Urine Blood Urine Nitrite Urine Bilirubin Urine Urobilinogen Ur Leukocyte Esterase Urine WBC (Auto) Urine RBC (Auto) U Epithel Cells (Auto) Urine Bacteria (Auto) Stool Occult Blood Acetone, Qual B-Hydroxybutyrate 04/01/19 04/01/19 04/01/19 06:07 06:43 06:43 WBC 12.8 H RBC 3.43 L Hgb 9.4 L Hct 29.8 L D MCV 87.0 MCH 27.5 MCHC 31.6 L RDW 23.2 H Plt Count 691 H D MPV 7.5 Absolute Neuts (auto) 11.4 H Total Counted Neutrophils % 88.8 H Neutrophils % (Manual) Band Neutrophils % Lymphocytes % 5.8 L D Lymphocytes % (Manual) Monocytes % 4.8 Monocytes % (Manual) Eosinophils % 0.0 D Eosinophils % (Manual) Basophils % 0.6 Basophils % (Manual) Myelocytes % (Man) Promyelocytes % (Man) Blast Cells % (Manual) Nucleated RBC % 0 Metamyelocytes Hypochromia Toxic Granulation Platelet Estimate Platelet Comment Polychromasia Poikilocytosis Anisocytosis Microcytosis Macrocytosis Spherocytes Target Cells Tear Drop Cells Ovalocytes Stomatocytes Jose Antonio Cells Acanthocytes (Spur) Fragmented RBCs Schistocytes PT with INR INR PTT (Actin FS) Fibrinogen Puncture Site ABG pH ABG pCO2 at Pt Temp ABG pO2 at Pt Temp ABG HCO3 ABG O2 Sat (Measured) ABG O2 Content ABG Base Excess Atul Test O2 Delivery Device Oxygen Flow Rate Vent Mode Vent Rate PEEP Pressure Support Vent Sodium 149 H Potassium 3.4 L Chloride 112 H Carbon Dioxide 16 L Anion Gap 20 H BUN 15.4 Creatinine 0.5 L Est GFR (CKD-EPI)AfAm 131.72 Est GFR (CKD-EPI)NonAf 113.65 POC Glucometer 247 Random Glucose 254 H Lactic Acid Calcium 8.4 L Phosphorus Magnesium 2.2 Iron TIBC Iron Saturation Unsaturated IBC Ferritin Total Bilirubin 0.6 AST 27 ALT 17 Alkaline Phosphatase 174 H Creatine Kinase Troponin I Total Protein 6.5 Albumin 2.1 L Prealbumin Triglycerides Cholesterol Total LDL Cholesterol HDL Cholesterol Beta-Hydroxybutyrate Urine Color Urine Appearance Urine pH Ur Specific Wrens Urine Protein Urine Glucose (UA) Urine Ketones Urine Blood Urine Nitrite Urine Bilirubin Urine Urobilinogen Ur Leukocyte Esterase Urine WBC (Auto) Urine RBC (Auto) U Epithel Cells (Auto) Urine Bacteria (Auto) Stool Occult Blood Acetone, Qual B-Hydroxybutyrate 04/01/19 04/01/19 04/01/19 08:27 08:50 10:00 WBC RBC Hgb Hct MCV MCH MCHC RDW Plt Count MPV Absolute Neuts (auto) Total Counted Neutrophils % Neutrophils % (Manual) Band Neutrophils % Lymphocytes % Lymphocytes % (Manual) Monocytes % Monocytes % (Manual) Eosinophils % Eosinophils % (Manual) Basophils % Basophils % (Manual) Myelocytes % (Man) Promyelocytes % (Man) Blast Cells % (Manual) Nucleated RBC % Metamyelocytes Hypochromia Toxic Granulation Platelet Estimate Platelet Comment Polychromasia Poikilocytosis Anisocytosis Microcytosis Macrocytosis Spherocytes Target Cells Tear Drop Cells Ovalocytes Stomatocytes Jose Antonio Cells Acanthocytes (Spur) Fragmented RBCs Schistocytes PT with INR INR PTT (Actin FS) Fibrinogen Puncture Site Right brachial ABG pH 7.32 L ABG pCO2 at Pt Temp 17.5 L ABG pO2 at Pt Temp 115 H ABG HCO3 8.8 L ABG O2 Sat (Measured) 97.7 ABG O2 Content 12.7 ABG Base Excess -15.9 L Atul Test Positive O2 Delivery Device Room air Oxygen Flow Rate 21% Vent Mode Vent Rate PEEP Pressure Support Vent Sodium 148 H Potassium 3.8 Chloride 112 H Carbon Dioxide 7 L Anion Gap 29 H BUN 17.2 Creatinine 0.6 Est GFR (CKD-EPI)AfAm 124.05 Est GFR (CKD-EPI)NonAf 107.03 POC Glucometer Random Glucose 488 H* Lactic Acid Calcium 8.1 L Phosphorus Magnesium Iron TIBC Iron Saturation Unsaturated IBC Ferritin Total Bilirubin AST ALT Alkaline Phosphatase Creatine Kinase Troponin I Total Protein Albumin Prealbumin Triglycerides Cholesterol Total LDL Cholesterol HDL Cholesterol Beta-Hydroxybutyrate Urine Color Urine Appearance Urine pH Ur Specific W[place] Urine Protein Urine Glucose (UA) Urine Ketones Urine Blood Urine Nitrite Urine Bilirubin Urine Urobilinogen Ur Leukocyte Esterase Urine WBC (Auto) Urine RBC (Auto) U Epithel Cells (Auto) Urine Bacteria (Auto) Stool Occult Blood Acetone, Qual Positive moderate 2+ H B-Hydroxybutyrate 04/01/19 04/01/19 04/01/19 10:32 11:10 12:59 WBC RBC Hgb Hct MCV MCH MCHC RDW Plt Count MPV Absolute Neuts (auto) Total Counted Neutrophils % Neutrophils % (Manual) Band Neutrophils % Lymphocytes % Lymphocytes % (Manual) Monocytes % Monocytes % (Manual) Eosinophils % Eosinophils % (Manual) Basophils % Basophils % (Manual) Myelocytes % (Man) Promyelocytes % (Man) Blast Cells % (Manual) Nucleated RBC % Metamyelocytes Hypochromia Toxic Granulation Platelet Estimate Platelet Comment Polychromasia Poikilocytosis Anisocytosis Microcytosis Macrocytosis Spherocytes Target Cells Tear Drop Cells Ovalocytes Stomatocytes Jose Antonio Cells Acanthocytes (Spur) Fragmented RBCs Schistocytes PT with INR INR PTT (Actin FS) Fibrinogen Puncture Site Right radial ABG pH 7.08 L* ABG pCO2 at Pt Temp 13.9 L* ABG pO2 at Pt Temp 163 H ABG HCO3 4.0 L ABG O2 Sat (Measured) 97.5 ABG O2 Content 12.1 ABG Base Excess -24.8 L Atul Test Positive O2 Delivery Device Oxygen Flow Rate Yes Vent Mode Vent Rate PEEP Pressure Support Vent Sodium Potassium Chloride Carbon Dioxide Anion Gap BUN Creatinine Est GFR (CKD-EPI)AfAm Est GFR (CKD-EPI)NonAf POC Glucometer 440 Random Glucose Lactic Acid 2.4 H* Calcium Phosphorus Magnesium Iron TIBC Iron Saturation Unsaturated IBC Ferritin Total Bilirubin AST ALT Alkaline Phosphatase Creatine Kinase Troponin I Total Protein Albumin Prealbumin Triglycerides Cholesterol Total LDL Cholesterol HDL Cholesterol Beta-Hydroxybutyrate Urine Color Urine Appearance Urine pH Ur Specific [place] Urine Protein Urine Glucose (UA) Urine Ketones Urine Blood Urine Nitrite Urine Bilirubin Urine Urobilinogen Ur Leukocyte Esterase Urine WBC (Auto) Urine RBC (Auto) U Epithel Cells (Auto) Urine Bacteria (Auto) Stool Occult Blood Acetone, Qual B-Hydroxybutyrate 04/01/19 04/01/19 04/01/19 12:59 15:29 17:05 WBC RBC Hgb Hct MCV MCH MCHC RDW Plt Count MPV Absolute Neuts (auto) Total Counted Neutrophils % Neutrophils % (Manual) Band Neutrophils % Lymphocytes % Lymphocytes % (Manual) Monocytes % Monocytes % (Manual) Eosinophils % Eosinophils % (Manual) Basophils % Basophils % (Manual) Myelocytes % (Man) Promyelocytes % (Man) Blast Cells % (Manual) Nucleated RBC % Metamyelocytes Hypochromia Toxic Granulation Platelet Estimate Platelet Comment Polychromasia Poikilocytosis Anisocytosis Microcytosis Macrocytosis Spherocytes Target Cells Tear Drop Cells Ovalocytes Stomatocytes Wayne Cells Acanthocytes (Spur) Fragmented RBCs Schistocytes PT with INR INR PTT (Actin FS) Fibrinogen Puncture Site ABG pH ABG pCO2 at Pt Temp ABG pO2 at Pt Temp ABG HCO3 ABG O2 Sat (Measured) ABG O2 Content ABG Base Excess Atul Test O2 Delivery Device Oxygen Flow Rate Vent Mode Vent Rate PEEP Pressure Support Vent Sodium Potassium Chloride Carbon Dioxide Anion Gap BUN Creatinine Est GFR (CKD-EPI)AfAm Est GFR (CKD-EPI)NonAf POC Glucometer 228 238 Random Glucose Lactic Acid Calcium Phosphorus Magnesium Iron TIBC Iron Saturation Unsaturated IBC Ferritin Total Bilirubin AST ALT Alkaline Phosphatase Creatine Kinase Troponin I Total Protein Albumin Prealbumin Triglycerides Cholesterol Total LDL Cholesterol HDL Cholesterol Beta-Hydroxybutyrate Urine Color Urine Appearance Urine pH Ur Specific [place] Urine Protein Urine Glucose (UA) Urine Ketones Urine Blood Urine Nitrite Urine Bilirubin Urine Urobilinogen Ur Leukocyte Esterase Urine WBC (Auto) Urine RBC (Auto) U Epithel Cells (Auto) Urine Bacteria (Auto) Stool Occult Blood Acetone, Qual B-Hydroxybutyrate 124.00 H 04/01/19 04/01/19 04/01/19 18:21 18:40 19:21 WBC RBC Hgb Hct MCV MCH MCHC RDW Plt Count MPV Absolute Neuts (auto) Total Counted Neutrophils % Neutrophils % (Manual) Band Neutrophils % Lymphocytes % Lymphocytes % (Manual) Monocytes % Monocytes % (Manual) Eosinophils % Eosinophils % (Manual) Basophils % Basophils % (Manual) Myelocytes % (Man) Promyelocytes % (Man) Blast Cells % (Manual) Nucleated RBC % Metamyelocytes Hypochromia Toxic Granulation Platelet Estimate Platelet Comment Polychromasia Poikilocytosis Anisocytosis Microcytosis Macrocytosis Spherocytes Target Cells Tear Drop Cells Ovalocytes Stomatocytes Wayne Cells Acanthocytes (Spur) Fragmented RBCs Schistocytes PT with INR INR PTT (Actin FS) Fibrinogen Puncture Site Right brachial ABG pH 7.32 L ABG pCO2 at Pt Temp 36.2 ABG pO2 at Pt Temp 181 H ABG HCO3 18.2 L ABG O2 Sat (Measured) 99.4 H ABG O2 Content 14.2 ABG Base Excess -6.8 L Atul Test Positive O2 Delivery Device Mech. vent. Oxygen Flow Rate 50% Vent Mode A/c Vent Rate 14 PEEP Pressure Support Vent 350 Sodium Potassium Chloride Carbon Dioxide Anion Gap BUN Creatinine Est GFR (CKD-EPI)AfAm Est GFR (CKD-EPI)NonAf POC Glucometer 160 118 Random Glucose Lactic Acid Calcium Phosphorus Magnesium Iron TIBC Iron Saturation Unsaturated IBC Ferritin Total Bilirubin AST ALT Alkaline Phosphatase Creatine Kinase Troponin I Total Protein Albumin Prealbumin Triglycerides Cholesterol Total LDL Cholesterol HDL Cholesterol Beta-Hydroxybutyrate Urine Color Urine Appearance Urine pH Ur Specific [place] Urine Protein Urine Glucose (UA) Urine Ketones Urine Blood Urine Nitrite Urine Bilirubin Urine Urobilinogen Ur Leukocyte Esterase Urine WBC (Auto) Urine RBC (Auto) U Epithel Cells (Auto) Urine Bacteria (Auto) Stool Occult Blood Acetone, Qual B-Hydroxybutyrate 04/01/19 04/01/19 04/01/19 20:00 20:14 21:55 WBC RBC Hgb Hct MCV MCH MCHC RDW Plt Count MPV Absolute Neuts (auto) Total Counted Neutrophils % Neutrophils % (Manual) Band Neutrophils % Lymphocytes % Lymphocytes % (Manual) Monocytes % Monocytes % (Manual) Eosinophils % Eosinophils % (Manual) Basophils % Basophils % (Manual) Myelocytes % (Man) Promyelocytes % (Man) Blast Cells % (Manual) Nucleated RBC % Metamyelocytes Hypochromia Toxic Granulation Platelet Estimate Platelet Comment Polychromasia Poikilocytosis Anisocytosis Microcytosis Macrocytosis Spherocytes Target Cells Tear Drop Cells Ovalocytes Stomatocytes Wayne Cells Acanthocytes (Spur) Fragmented RBCs Schistocytes PT with INR INR PTT (Actin FS) Fibrinogen Puncture Site ABG pH ABG pCO2 at Pt Temp ABG pO2 at Pt Temp ABG HCO3 ABG O2 Sat (Measured) ABG O2 Content ABG Base Excess Atul Test O2 Delivery Device Oxygen Flow Rate Vent Mode Vent Rate PEEP Pressure Support Vent Sodium 154 H Potassium 3.0 L Chloride 116 H Carbon Dioxide 23 Anion Gap 15 BUN 17.9 Creatinine 0.9 Est GFR (CKD-EPI)AfAm 87.02 Est GFR (CKD-EPI)NonAf 75.08 POC Glucometer 110 176 Random Glucose 96 Lactic Acid Calcium 8.1 L Phosphorus Magnesium Iron TIBC Iron Saturation Unsaturated IBC Ferritin Total Bilirubin AST ALT Alkaline Phosphatase Creatine Kinase Troponin I Total Protein Albumin Prealbumin Triglycerides Cholesterol Total LDL Cholesterol HDL Cholesterol Beta-Hydroxybutyrate Urine Color Urine Appearance Urine pH Ur Specific [place] Urine Protein Urine Glucose (UA) Urine Ketones Urine Blood Urine Nitrite Urine Bilirubin Urine Urobilinogen Ur Leukocyte Esterase Urine WBC (Auto) Urine RBC (Auto) U Epithel Cells (Auto) Urine Bacteria (Auto) Stool Occult Blood Acetone, Qual B-Hydroxybutyrate 04/02/19 04/02/19 04/02/19 00:47 01:00 01:00 WBC RBC Hgb Hct MCV MCH MCHC RDW Plt Count MPV Absolute Neuts (auto) Total Counted Neutrophils % Neutrophils % (Manual) Band Neutrophils % Lymphocytes % Lymphocytes % (Manual) Monocytes % Monocytes % (Manual) Eosinophils % Eosinophils % (Manual) Basophils % Basophils % (Manual) Myelocytes % (Man) Promyelocytes % (Man) Blast Cells % (Manual) Nucleated RBC % Metamyelocytes Hypochromia Toxic Granulation Platelet Estimate Platelet Comment Polychromasia Poikilocytosis Anisocytosis Microcytosis Macrocytosis Spherocytes Target Cells Tear Drop Cells Ovalocytes Stomatocytes Wayne Cells Acanthocytes (Spur) Fragmented RBCs Schistocytes PT with INR INR PTT (Actin FS) Fibrinogen Puncture Site ABG pH ABG pCO2 at Pt Temp ABG pO2 at Pt Temp ABG HCO3 ABG O2 Sat (Measured) ABG O2 Content ABG Base Excess Atul Test O2 Delivery Device Oxygen Flow Rate Vent Mode Vent Rate PEEP Pressure Support Vent Sodium 155 H Potassium 3.2 L Chloride 120 H Carbon Dioxide 25 Anion Gap 9 BUN 20.8 H Creatinine 0.9 Est GFR (CKD-EPI)AfAm 87.02 Est GFR (CKD-EPI)NonAf 75.08 POC Glucometer 82 Random Glucose 78 Lactic Acid 1.8 Calcium 7.8 L Phosphorus Magnesium Iron TIBC Iron Saturation Unsaturated IBC Ferritin Total Bilirubin AST ALT Alkaline Phosphatase Creatine Kinase Troponin I Total Protein Albumin Prealbumin Triglycerides Cholesterol Total LDL Cholesterol HDL Cholesterol Beta-Hydroxybutyrate Urine Color Urine Appearance Urine pH Ur Specific [place] Urine Protein Urine Glucose (UA) Urine Ketones Urine Blood Urine Nitrite Urine Bilirubin Urine Urobilinogen Ur Leukocyte Esterase Urine WBC (Auto) Urine RBC (Auto) U Epithel Cells (Auto) Urine Bacteria (Auto) Stool Occult Blood Acetone, Qual B-Hydroxybutyrate 04/02/19 04/02/19 04/02/19 02:08 03:06 04:19 WBC RBC Hgb Hct MCV MCH MCHC RDW Plt Count MPV Absolute Neuts (auto) Total Counted Neutrophils % Neutrophils % (Manual) Band Neutrophils % Lymphocytes % Lymphocytes % (Manual) Monocytes % Monocytes % (Manual) Eosinophils % Eosinophils % (Manual) Basophils % Basophils % (Manual) Myelocytes % (Man) Promyelocytes % (Man) Blast Cells % (Manual) Nucleated RBC % Metamyelocytes Hypochromia Toxic Granulation Platelet Estimate Platelet Comment Polychromasia Poikilocytosis Anisocytosis Microcytosis Macrocytosis Spherocytes Target Cells Tear Drop Cells Ovalocytes Stomatocytes Wayne Cells Acanthocytes (Spur) Fragmented RBCs Schistocytes PT with INR INR PTT (Actin FS) Fibrinogen Puncture Site ABG pH ABG pCO2 at Pt Temp ABG pO2 at Pt Temp ABG HCO3 ABG O2 Sat (Measured) ABG O2 Content ABG Base Excess Atul Test O2 Delivery Device Oxygen Flow Rate Vent Mode Vent Rate PEEP Pressure Support Vent Sodium Potassium Chloride Carbon Dioxide Anion Gap BUN Creatinine Est GFR (CKD-EPI)AfAm Est GFR (CKD-EPI)NonAf POC Glucometer 117 150 142 Random Glucose Lactic Acid Calcium Phosphorus Magnesium Iron TIBC Iron Saturation Unsaturated IBC Ferritin Total Bilirubin AST ALT Alkaline Phosphatase Creatine Kinase Troponin I Total Protein Albumin Prealbumin Triglycerides Cholesterol Total LDL Cholesterol HDL Cholesterol Beta-Hydroxybutyrate Urine Color Urine Appearance Urine pH Ur Specific [place] Urine Protein Urine Glucose (UA) Urine Ketones Urine Blood Urine Nitrite Urine Bilirubin Urine Urobilinogen Ur Leukocyte Esterase Urine WBC (Auto) Urine RBC (Auto) U Epithel Cells (Auto) Urine Bacteria (Auto) Stool Occult Blood Acetone, Qual B-Hydroxybutyrate 04/02/19 04/02/19 04/02/19 05:30 05:32 06:00 WBC 11.0 H RBC 2.87 L Hgb 8.2 L Hct 24.6 L D MCV 85.7 MCH 28.6 MCHC 33.4 RDW 22.7 H Plt Count 594 H MPV 7.5 Absolute Neuts (auto) 8.3 H Total Counted Neutrophils % 75.5 Neutrophils % (Manual) Band Neutrophils % Lymphocytes % 17.6 D Lymphocytes % (Manual) Monocytes % 5.5 Monocytes % (Manual) Eosinophils % 0.7 D Eosinophils % (Manual) Basophils % 0.7 Basophils % (Manual) Myelocytes % (Man) Promyelocytes % (Man) Blast Cells % (Manual) Nucleated RBC % 0 Metamyelocytes Hypochromia Toxic Granulation Platelet Estimate Platelet Comment Polychromasia Poikilocytosis Anisocytosis Microcytosis Macrocytosis Spherocytes Target Cells Tear Drop Cells Ovalocytes Stomatocytes Jose Antonio Cells Acanthocytes (Spur) Fragmented RBCs Schistocytes PT with INR INR PTT (Actin FS) Fibrinogen Puncture Site ABG pH ABG pCO2 at Pt Temp ABG pO2 at Pt Temp ABG HCO3 ABG O2 Sat (Measured) ABG O2 Content ABG Base Excess Atul Test O2 Delivery Device Oxygen Flow Rate Vent Mode Vent Rate PEEP Pressure Support Vent Sodium 153 H Potassium 3.5 Chloride 120 H Carbon Dioxide 25 Anion Gap 9 BUN 22.1 H Creatinine 0.9 Est GFR (CKD-EPI)AfAm 87.02 Est GFR (CKD-EPI)NonAf 75.08 POC Glucometer 146 Random Glucose 152 H Lactic Acid Calcium 7.9 L Phosphorus Magnesium 2.2 Iron TIBC Iron Saturation Unsaturated IBC Ferritin Total Bilirubin 0.2 AST 22 ALT 14 Alkaline Phosphatase 151 H Creatine Kinase Troponin I Total Protein 5.5 L Albumin 1.7 L Prealbumin Triglycerides Cholesterol Total LDL Cholesterol HDL Cholesterol Beta-Hydroxybutyrate Urine Color Urine Appearance Urine pH Ur Specific Wrens Urine Protein Urine Glucose (UA) Urine Ketones Urine Blood Urine Nitrite Urine Bilirubin Urine Urobilinogen Ur Leukocyte Esterase Urine WBC (Auto) Urine RBC (Auto) U Epithel Cells (Auto) Urine Bacteria (Auto) Stool Occult Blood Acetone, Qual B-Hydroxybutyrate 10/04/19 10/04/19 10/04/19 06:05 07:06 08:50 WBC RBC Hgb Hct MCV MCH MCHC RDW Plt Count MPV Absolute Neuts (auto) Total Counted Neutrophils % Neutrophils % (Manual) Band Neutrophils % Lymphocytes % Lymphocytes % (Manual) Monocytes % Monocytes % (Manual) Eosinophils % Eosinophils % (Manual) Basophils % Basophils % (Manual) Myelocytes % (Man) Promyelocytes % (Man) Blast Cells % (Manual) Nucleated RBC % Metamyelocytes Hypochromia Toxic Granulation Platelet Estimate Platelet Comment Polychromasia Poikilocytosis Anisocytosis Microcytosis Macrocytosis Spherocytes Target Cells Tear Drop Cells Ovalocytes Stomatocytes Wayne Cells Acanthocytes (Spur) Fragmented RBCs Schistocytes PT with INR INR PTT (Actin FS) Fibrinogen Puncture Site Left radial ABG pH 7.40 ABG pCO2 at Pt Temp 39.5 ABG pO2 at Pt Temp 132 H ABG HCO3 24.2 ABG O2 Sat (Measured) 99.1 H ABG O2 Content 11.9 ABG Base Excess 0 Atul Test Positive O2 Delivery Device Mech vent Oxygen Flow Rate 50 Vent Mode A/c Vent Rate 14 PEEP 5.0 Pressure Support Vent 350 Sodium Potassium Chloride Carbon Dioxide Anion Gap BUN Creatinine Est GFR (CKD-EPI)AfAm Est GFR (CKD-EPI)NonAf POC Glucometer 219 150 Random Glucose Lactic Acid Calcium Phosphorus Magnesium Iron TIBC Iron Saturation Unsaturated IBC Ferritin Total Bilirubin AST ALT Alkaline Phosphatase Creatine Kinase Troponin I Total Protein Albumin Prealbumin Triglycerides Cholesterol Total LDL Cholesterol HDL Cholesterol Beta-Hydroxybutyrate Urine Color Urine Appearance Urine pH Ur Specific Wrens Urine Protein Urine Glucose (UA) Urine Ketones Urine Blood Urine Nitrite Urine Bilirubin Urine Urobilinogen Ur Leukocyte Esterase Urine WBC (Auto) Urine RBC (Auto) U Epithel Cells (Auto) Urine Bacteria (Auto) Stool Occult Blood Acetone, Qual B-Hydroxybutyrate 04/02/19 04/02/19 04/02/19 10:30 14:47 15:48 WBC RBC Hgb Hct MCV MCH MCHC RDW Plt Count MPV Absolute Neuts (auto) Total Counted Neutrophils % Neutrophils % (Manual) Band Neutrophils % Lymphocytes % Lymphocytes % (Manual) Monocytes % Monocytes % (Manual) Eosinophils % Eosinophils % (Manual) Basophils % Basophils % (Manual) Myelocytes % (Man) Promyelocytes % (Man) Blast Cells % (Manual) Nucleated RBC % Metamyelocytes Hypochromia Toxic Granulation Platelet Estimate Platelet Comment Polychromasia Poikilocytosis Anisocytosis Microcytosis Macrocytosis Spherocytes Target Cells Tear Drop Cells Ovalocytes Stomatocytes Jose Antonio Cells Acanthocytes (Spur) Fragmented RBCs Schistocytes PT with INR INR PTT (Actin FS) Fibrinogen Puncture Site ABG pH ABG pCO2 at Pt Temp ABG pO2 at Pt Temp ABG HCO3 ABG O2 Sat (Measured) ABG O2 Content ABG Base Excess Atul Test O2 Delivery Device Oxygen Flow Rate Vent Mode Vent Rate PEEP Pressure Support Vent Sodium Potassium Chloride Carbon Dioxide Anion Gap BUN Creatinine Est GFR (CKD-EPI)AfAm Est GFR (CKD-EPI)NonAf POC Glucometer [phone] Random Glucose Lactic Acid Calcium Phosphorus Magnesium Iron TIBC Iron Saturation Unsaturated IBC Ferritin Total Bilirubin AST ALT Alkaline Phosphatase Creatine Kinase Troponin I Total Protein Albumin Prealbumin Triglycerides Cholesterol Total LDL Cholesterol HDL Cholesterol Beta-Hydroxybutyrate Urine Color Urine Appearance Urine pH Ur Specific Wrens Urine Protein Urine Glucose (UA) Urine Ketones Urine Blood Urine Nitrite Urine Bilirubin Urine Urobilinogen Ur Leukocyte Esterase Urine WBC (Auto) Urine RBC (Auto) U Epithel Cells (Auto) Urine Bacteria (Auto) Stool Occult Blood Acetone, Qual B-Hydroxybutyrate 04/02/19 04/02/19 04/03/19 18:26 23:59 01:03 WBC RBC Hgb Hct MCV MCH MCHC RDW Plt Count MPV Absolute Neuts (auto) Total Counted Neutrophils % Neutrophils % (Manual) Band Neutrophils % Lymphocytes % Lymphocytes % (Manual) Monocytes % Monocytes % (Manual) Eosinophils % Eosinophils % (Manual) Basophils % Basophils % (Manual) Myelocytes % (Man) Promyelocytes % (Man) Blast Cells % (Manual) Nucleated RBC % Metamyelocytes Hypochromia Toxic Granulation Platelet Estimate Platelet Comment Polychromasia Poikilocytosis Anisocytosis Microcytosis Macrocytosis Spherocytes Target Cells Tear Drop Cells Ovalocytes Stomatocytes Wayne Cells Acanthocytes (Spur) Fragmented RBCs Schistocytes PT with INR INR PTT (Actin FS) Fibrinogen Puncture Site ABG pH ABG pCO2 at Pt Temp ABG pO2 at Pt Temp ABG HCO3 ABG O2 Sat (Measured) ABG O2 Content ABG Base Excess Atul Test O2 Delivery Device Oxygen Flow Rate Vent Mode Vent Rate PEEP Pressure Support Vent Sodium Potassium Chloride Carbon Dioxide Anion Gap BUN Creatinine Est GFR (CKD-EPI)AfAm Est GFR (CKD-EPI)NonAf POC Glucometer [phone] Random Glucose Lactic Acid Calcium Phosphorus Magnesium Iron TIBC Iron Saturation Unsaturated IBC Ferritin Total Bilirubin AST ALT Alkaline Phosphatase Creatine Kinase Troponin I Total Protein Albumin Prealbumin Triglycerides Cholesterol Total LDL Cholesterol HDL Cholesterol Beta-Hydroxybutyrate Urine Color Urine Appearance Urine pH Ur Specific Wrens Urine Protein Urine Glucose (UA) Urine Ketones Urine Blood Urine Nitrite Urine Bilirubin Urine Urobilinogen Ur Leukocyte Esterase Urine WBC (Auto) Urine RBC (Auto) U Epithel Cells (Auto) Urine Bacteria (Auto) Stool Occult Blood Acetone, Qual B-Hydroxybutyrate 04/03/19 04/03/19 04/03/19 02:52 05:00 05:00 WBC 9.5 RBC 2.87 L Hgb 8.2 L Hct 24.8 L MCV 86.3 MCH 28.7 MCHC 33.2 RDW 23.1 H Plt Count 550 H MPV 7.4 L Absolute Neuts (auto) 6.5 Total Counted Neutrophils % 67.9 Neutrophils % (Manual) Band Neutrophils % Lymphocytes % 22.9 D Lymphocytes % (Manual) Monocytes % 6.1 Monocytes % (Manual) Eosinophils % 2.3 D Eosinophils % (Manual) Basophils % 0.8 Basophils % (Manual) Myelocytes % (Man) Promyelocytes % (Man) Blast Cells % (Manual) Nucleated RBC % 0 Metamyelocytes Hypochromia 0 Toxic Granulation Platelet Estimate Increased Platelet Comment Polychromasia 0 Poikilocytosis 0 Anisocytosis 1+ Microcytosis 1+ Macrocytosis 1+ Spherocytes Target Cells 1+ Tear Drop Cells Ovalocytes 1+ Stomatocytes Wayne Cells Acanthocytes (Spur) Fragmented RBCs Schistocytes PT with INR INR PTT (Actin FS) Fibrinogen Puncture Site ABG pH ABG pCO2 at Pt Temp ABG pO2 at Pt Temp ABG HCO3 ABG O2 Sat (Measured) ABG O2 Content ABG Base Excess Atul Test O2 Delivery Device Oxygen Flow Rate Vent Mode Vent Rate PEEP Pressure Support Vent Sodium 151 H Potassium 3.5 Chloride 116 H Carbon Dioxide 27 Anion Gap 7 L BUN 21.4 H Creatinine 0.6 Est GFR (CKD-EPI)AfAm 124.05 Est GFR (CKD-EPI)NonAf 107.03 POC Glucometer 112 Random Glucose 230 H Lactic Acid Calcium 7.8 L Phosphorus 1.9 L Magnesium 1.9 Iron TIBC Iron Saturation Unsaturated IBC Ferritin Total Bilirubin 0.3 AST 18 ALT 12 L Alkaline Phosphatase 138 H Creatine Kinase Troponin I Total Protein 5.3 L Albumin 1.8 L Prealbumin Triglycerides Cholesterol Total LDL Cholesterol HDL Cholesterol Beta-Hydroxybutyrate Urine Color Urine Appearance Urine pH Ur Specific Wrens Urine Protein Urine Glucose (UA) Urine Ketones Urine Blood Urine Nitrite Urine Bilirubin Urine Urobilinogen Ur Leukocyte Esterase Urine WBC (Auto) Urine RBC (Auto) U Epithel Cells (Auto) Urine Bacteria (Auto) Stool Occult Blood Acetone, Qual B-Hydroxybutyrate 04/03/19 04/03/19 04/03/19 05:00 05:27 10:53 WBC RBC Hgb Hct MCV MCH MCHC RDW Plt Count MPV Absolute Neuts (auto) Total Counted Neutrophils % Neutrophils % (Manual) Band Neutrophils % Lymphocytes % Lymphocytes % (Manual) Monocytes % Monocytes % (Manual) Eosinophils % Eosinophils % (Manual) Basophils % Basophils % (Manual) Myelocytes % (Man) Promyelocytes % (Man) Blast Cells % (Manual) Nucleated RBC % Metamyelocytes Hypochromia Toxic Granulation Platelet Estimate Platelet Comment Polychromasia Poikilocytosis Anisocytosis Microcytosis Macrocytosis Spherocytes Target Cells Tear Drop Cells Ovalocytes Stomatocytes Wayne Cells Acanthocytes (Spur) Fragmented RBCs Schistocytes PT with INR INR PTT (Actin FS) Fibrinogen Puncture Site ABG pH ABG pCO2 at Pt Temp ABG pO2 at Pt Temp ABG HCO3 ABG O2 Sat (Measured) ABG O2 Content ABG Base Excess Atul Test O2 Delivery Device Oxygen Flow Rate Vent Mode Vent Rate PEEP Pressure Support Vent Sodium Potassium Chloride Carbon Dioxide Anion Gap BUN Creatinine Est GFR (CKD-EPI)AfAm Est GFR (CKD-EPI)NonAf POC Glucometer [phone] Random Glucose Lactic Acid Calcium Phosphorus Magnesium Iron TIBC Iron Saturation Unsaturated IBC Ferritin Total Bilirubin AST ALT Alkaline Phosphatase Creatine Kinase Troponin I Total Protein Albumin Prealbumin Triglycerides Cholesterol Total LDL Cholesterol HDL Cholesterol Beta-Hydroxybutyrate Urine Color Yellow Urine Appearance Clear Urine pH 6.0 Ur Specific W[place] 1.025 Urine Protein 2+ H Urine Glucose (UA) Negative Urine Ketones 1+ H Urine Blood Negative Urine Nitrite Negative Urine Bilirubin 1+ H Urine Urobilinogen 0.2 Ur Leukocyte Esterase Negative Urine WBC (Auto) 0-3 Urine RBC (Auto) 0-3 U Epithel Cells (Auto) 2-5 Urine Bacteria (Auto) Few Stool Occult Blood Acetone, Qual B-Hydroxybutyrate 04/03/19 04/03/19 04/03/19 14:01 17:22 22:23 WBC RBC Hgb Hct MCV MCH MCHC RDW Plt Count MPV Absolute Neuts (auto) Total Counted Neutrophils % Neutrophils % (Manual) Band Neutrophils % Lymphocytes % Lymphocytes % (Manual) Monocytes % Monocytes % (Manual) Eosinophils % Eosinophils % (Manual) Basophils % Basophils % (Manual) Myelocytes % (Man) Promyelocytes % (Man) Blast Cells % (Manual) Nucleated RBC % Metamyelocytes Hypochromia Toxic Granulation Platelet Estimate Platelet Comment Polychromasia Poikilocytosis Anisocytosis Microcytosis Macrocytosis Spherocytes Target Cells Tear Drop Cells Ovalocytes Stomatocytes Wayne Cells Acanthocytes (Spur) Fragmented RBCs Schistocytes PT with INR INR PTT (Actin FS) Fibrinogen Puncture Site ABG pH ABG pCO2 at Pt Temp ABG pO2 at Pt Temp ABG HCO3 ABG O2 Sat (Measured) ABG O2 Content ABG Base Excess Atul Test O2 Delivery Device Oxygen Flow Rate Vent Mode Vent Rate PEEP Pressure Support Vent Sodium Potassium Chloride Carbon Dioxide Anion Gap BUN Creatinine Est GFR (CKD-EPI)AfAm Est GFR (CKD-EPI)NonAf POC Glucometer [phone] Random Glucose Lactic Acid Calcium Phosphorus Magnesium Iron TIBC Iron Saturation Unsaturated IBC Ferritin Total Bilirubin AST ALT Alkaline Phosphatase Creatine Kinase Troponin I Total Protein Albumin Prealbumin Triglycerides Cholesterol Total LDL Cholesterol HDL Cholesterol Beta-Hydroxybutyrate Urine Color Urine Appearance Urine pH Ur Specific Wrens Urine Protein Urine Glucose (UA) Urine Ketones Urine Blood Urine Nitrite Urine Bilirubin Urine Urobilinogen Ur Leukocyte Esterase Urine WBC (Auto) Urine RBC (Auto) U Epithel Cells (Auto) Urine Bacteria (Auto) Stool Occult Blood Acetone, Qual B-Hydroxybutyrate 04/04/19 04/04/19 04/04/19 03:12 05:15 05:15 WBC 10.0 RBC 2.66 L Hgb 7.8 L Hct 22.9 L MCV 86.1 MCH 29.2 MCHC 34.0 RDW 23.1 H Plt Count 475 H MPV 7.5 Absolute Neuts (auto) 7.3 Total Counted Neutrophils % 73.2 Neutrophils % (Manual) Band Neutrophils % Lymphocytes % 18.0 D Lymphocytes % (Manual) Monocytes % 4.7 Monocytes % (Manual) Eosinophils % 3.3 Eosinophils % (Manual) Basophils % 0.8 Basophils % (Manual) Myelocytes % (Man) Promyelocytes % (Man) Blast Cells % (Manual) Nucleated RBC % 0 Metamyelocytes Hypochromia Toxic Granulation Platelet Estimate Platelet Comment Polychromasia Poikilocytosis Anisocytosis Microcytosis Macrocytosis Spherocytes Target Cells Tear Drop Cells Ovalocytes Stomatocytes Wayne Cells Acanthocytes (Spur) Fragmented RBCs Schistocytes PT with INR INR PTT (Actin FS) Fibrinogen Puncture Site ABG pH ABG pCO2 at Pt Temp ABG pO2 at Pt Temp ABG HCO3 ABG O2 Sat (Measured) ABG O2 Content ABG Base Excess Atul Test O2 Delivery Device Oxygen Flow Rate Vent Mode Vent Rate PEEP Pressure Support Vent Sodium 149 H Potassium 3.1 L Chloride 112 H Carbon Dioxide 29 Anion Gap 8 BUN 18.4 H Creatinine 0.5 L Est GFR (CKD-EPI)AfAm 131.72 Est GFR (CKD-EPI)NonAf 113.65 POC Glucometer 202 Random Glucose 185 H Lactic Acid Calcium 7.5 L Phosphorus Magnesium 1.8 Iron TIBC Iron Saturation Unsaturated IBC Ferritin Total Bilirubin 0.2 AST 14 L ALT 11 L Alkaline Phosphatase 126 H Creatine Kinase Troponin I Total Protein 4.8 L Albumin 1.5 L Prealbumin Triglycerides Cholesterol Total LDL Cholesterol HDL Cholesterol Beta-Hydroxybutyrate Urine Color Urine Appearance Urine pH Ur Specific [place] Urine Protein Urine Glucose (UA) Urine Ketones Urine Blood Urine Nitrite Urine Bilirubin Urine Urobilinogen Ur Leukocyte Esterase Urine WBC (Auto) Urine RBC (Auto) U Epithel Cells (Auto) Urine Bacteria (Auto) Stool Occult Blood Acetone, Qual B-Hydroxybutyrate 04/04/19 04/04/19 04/04/19 07:57 11:16 15:05 WBC RBC Hgb Hct MCV MCH MCHC RDW Plt Count MPV Absolute Neuts (auto) Total Counted Neutrophils % Neutrophils % (Manual) Band Neutrophils % Lymphocytes % Lymphocytes % (Manual) Monocytes % Monocytes % (Manual) Eosinophils % Eosinophils % (Manual) Basophils % Basophils % (Manual) Myelocytes % (Man) Promyelocytes % (Man) Blast Cells % (Manual) Nucleated RBC % Metamyelocytes Hypochromia Toxic Granulation Platelet Estimate Platelet Comment Polychromasia Poikilocytosis Anisocytosis Microcytosis Macrocytosis Spherocytes Target Cells Tear Drop Cells Ovalocytes Stomatocytes Jose Antonio Cells Acanthocytes (Spur) Fragmented RBCs Schistocytes PT with INR INR PTT (Actin FS) Fibrinogen Puncture Site ABG pH ABG pCO2 at Pt Temp ABG pO2 at Pt Temp ABG HCO3 ABG O2 Sat (Measured) ABG O2 Content ABG Base Excess Atul Test O2 Delivery Device Oxygen Flow Rate Vent Mode Vent Rate PEEP Pressure Support Vent Sodium Potassium Chloride Carbon Dioxide Anion Gap BUN Creatinine Est GFR (CKD-EPI)AfAm Est GFR (CKD-EPI)NonAf POC Glucometer [phone] Random Glucose Lactic Acid Calcium Phosphorus Magnesium Iron TIBC Iron Saturation Unsaturated IBC Ferritin Total Bilirubin AST ALT Alkaline Phosphatase Creatine Kinase Troponin I Total Protein Albumin Prealbumin Triglycerides Cholesterol Total LDL Cholesterol HDL Cholesterol Beta-Hydroxybutyrate Urine Color Urine Appearance Urine pH Ur Specific W[place] Urine Protein Urine Glucose (UA) Urine Ketones Urine Blood Urine Nitrite Urine Bilirubin Urine Urobilinogen Ur Leukocyte Esterase Urine WBC (Auto) Urine RBC (Auto) U Epithel Cells (Auto) Urine Bacteria (Auto) Stool Occult Blood Acetone, Qual B-Hydroxybutyrate 04/04/19 04/04/19 04/05/19 17:59 23:14 02:30 WBC RBC Hgb Hct MCV MCH MCHC RDW Plt Count MPV Absolute Neuts (auto) Total Counted Neutrophils % Neutrophils % (Manual) Band Neutrophils % Lymphocytes % Lymphocytes % (Manual) Monocytes % Monocytes % (Manual) Eosinophils % Eosinophils % (Manual) Basophils % Basophils % (Manual) Myelocytes % (Man) Promyelocytes % (Man) Blast Cells % (Manual) Nucleated RBC % Metamyelocytes Hypochromia Toxic Granulation Platelet Estimate Platelet Comment Polychromasia Poikilocytosis Anisocytosis Microcytosis Macrocytosis Spherocytes Target Cells Tear Drop Cells Ovalocytes Stomatocytes Wayne Cells Acanthocytes (Spur) Fragmented RBCs Schistocytes PT with INR INR PTT (Actin FS) Fibrinogen Puncture Site ABG pH ABG pCO2 at Pt Temp ABG pO2 at Pt Temp ABG HCO3 ABG O2 Sat (Measured) ABG O2 Content ABG Base Excess Atul Test O2 Delivery Device Oxygen Flow Rate Vent Mode Vent Rate PEEP Pressure Support Vent Sodium Potassium Chloride Carbon Dioxide Anion Gap BUN Creatinine Est GFR (CKD-EPI)AfAm Est GFR (CKD-EPI)NonAf POC Glucometer [phone] Random Glucose Lactic Acid Calcium Phosphorus Magnesium Iron TIBC Iron Saturation Unsaturated IBC Ferritin Total Bilirubin AST ALT Alkaline Phosphatase Creatine Kinase Troponin I Total Protein Albumin Prealbumin Triglycerides Cholesterol Total LDL Cholesterol HDL Cholesterol Beta-Hydroxybutyrate Urine Color Urine Appearance Urine pH Ur Specific Wrens Urine Protein Urine Glucose (UA) Urine Ketones Urine Blood Urine Nitrite Urine Bilirubin Urine Urobilinogen Ur Leukocyte Esterase Urine WBC (Auto) Urine RBC (Auto) U Epithel Cells (Auto) Urine Bacteria (Auto) Stool Occult Blood Acetone, Qual B-Hydroxybutyrate 04/05/19 04/05/19 04/05/19 05:50 10:05 11:06 WBC RBC Hgb Hct MCV MCH MCHC RDW Plt Count MPV Absolute Neuts (auto) Total Counted Neutrophils % Neutrophils % (Manual) Band Neutrophils % Lymphocytes % Lymphocytes % (Manual) Monocytes % Monocytes % (Manual) Eosinophils % Eosinophils % (Manual) Basophils % Basophils % (Manual) Myelocytes % (Man) Promyelocytes % (Man) Blast Cells % (Manual) Nucleated RBC % Metamyelocytes Hypochromia Toxic Granulation Platelet Estimate Platelet Comment Polychromasia Poikilocytosis Anisocytosis Microcytosis Macrocytosis Spherocytes Target Cells Tear Drop Cells Ovalocytes Stomatocytes Wayne Cells Acanthocytes (Spur) Fragmented RBCs Schistocytes PT with INR INR PTT (Actin FS) Fibrinogen Puncture Site ABG pH ABG pCO2 at Pt Temp ABG pO2 at Pt Temp ABG HCO3 ABG O2 Sat (Measured) ABG O2 Content ABG Base Excess Atul Test O2 Delivery Device Oxygen Flow Rate Vent Mode Vent Rate PEEP Pressure Support Vent Sodium Potassium Chloride Carbon Dioxide Anion Gap BUN Creatinine Est GFR (CKD-EPI)AfAm Est GFR (CKD-EPI)NonAf POC Glucometer [phone] Random Glucose Lactic Acid Calcium Phosphorus Magnesium Iron TIBC Iron Saturation Unsaturated IBC Ferritin Total Bilirubin AST ALT Alkaline Phosphatase Creatine Kinase Troponin I Total Protein Albumin Prealbumin Triglycerides Cholesterol Total LDL Cholesterol HDL Cholesterol Beta-Hydroxybutyrate Urine Color Urine Appearance Urine pH Ur Specific Wrens Urine Protein Urine Glucose (UA) Urine Ketones Urine Blood Urine Nitrite Urine Bilirubin Urine Urobilinogen Ur Leukocyte Esterase Urine WBC (Auto) Urine RBC (Auto) U Epithel Cells (Auto) Urine Bacteria (Auto) Stool Occult Blood Acetone, Qual B-Hydroxybutyrate 04/05/19 04/05/19 04/05/19 12:29 13:35 14:44 WBC RBC Hgb Hct MCV MCH MCHC RDW Plt Count MPV Absolute Neuts (auto) Total Counted Neutrophils % Neutrophils % (Manual) Band Neutrophils % Lymphocytes % Lymphocytes % (Manual) Monocytes % Monocytes % (Manual) Eosinophils % Eosinophils % (Manual) Basophils % Basophils % (Manual) Myelocytes % (Man) Promyelocytes % (Man) Blast Cells % (Manual) Nucleated RBC % Metamyelocytes Hypochromia Toxic Granulation Platelet Estimate Platelet Comment Polychromasia Poikilocytosis Anisocytosis Microcytosis Macrocytosis Spherocytes Target Cells Tear Drop Cells Ovalocytes Stomatocytes Wayne Cells Acanthocytes (Spur) Fragmented RBCs Schistocytes PT with INR INR PTT (Actin FS) Fibrinogen Puncture Site ABG pH ABG pCO2 at Pt Temp ABG pO2 at Pt Temp ABG HCO3 ABG O2 Sat (Measured) ABG O2 Content ABG Base Excess Atul Test O2 Delivery Device Oxygen Flow Rate Vent Mode Vent Rate PEEP Pressure Support Vent Sodium Potassium Chloride Carbon Dioxide Anion Gap BUN Creatinine Est GFR (CKD-EPI)AfAm Est GFR (CKD-EPI)NonAf POC Glucometer [phone] Random Glucose Lactic Acid Calcium Phosphorus Magnesium Iron TIBC Iron Saturation Unsaturated IBC Ferritin Total Bilirubin AST ALT Alkaline Phosphatase Creatine Kinase Troponin I Total Protein Albumin Prealbumin Triglycerides Cholesterol Total LDL Cholesterol HDL Cholesterol Beta-Hydroxybutyrate Urine Color Urine Appearance Urine pH Ur Specific [place] Urine Protein Urine Glucose (UA) Urine Ketones Urine Blood Urine Nitrite Urine Bilirubin Urine Urobilinogen Ur Leukocyte Esterase Urine WBC (Auto) Urine RBC (Auto) U Epithel Cells (Auto) Urine Bacteria (Auto) Stool Occult Blood Acetone, Qual B-Hydroxybutyrate 04/05/19 04/05/19 04/05/19 15:52 17:06 21:18 WBC RBC Hgb Hct MCV MCH MCHC RDW Plt Count MPV Absolute Neuts (auto) Total Counted Neutrophils % Neutrophils % (Manual) Band Neutrophils % Lymphocytes % Lymphocytes % (Manual) Monocytes % Monocytes % (Manual) Eosinophils % Eosinophils % (Manual) Basophils % Basophils % (Manual) Myelocytes % (Man) Promyelocytes % (Man) Blast Cells % (Manual) Nucleated RBC % Metamyelocytes Hypochromia Toxic Granulation Platelet Estimate Platelet Comment Polychromasia Poikilocytosis Anisocytosis Microcytosis Macrocytosis Spherocytes Target Cells Tear Drop Cells Ovalocytes Stomatocytes Wayne Cells Acanthocytes (Spur) Fragmented RBCs Schistocytes PT with INR INR PTT (Actin FS) Fibrinogen Puncture Site ABG pH ABG pCO2 at Pt Temp ABG pO2 at Pt Temp ABG HCO3 ABG O2 Sat (Measured) ABG O2 Content ABG Base Excess Atul Test O2 Delivery Device Oxygen Flow Rate Vent Mode Vent Rate PEEP Pressure Support Vent Sodium Potassium Chloride Carbon Dioxide Anion Gap BUN Creatinine Est GFR (CKD-EPI)AfAm Est GFR (CKD-EPI)NonAf POC Glucometer [phone] Random Glucose Lactic Acid Calcium Phosphorus Magnesium Iron TIBC Iron Saturation Unsaturated IBC Ferritin Total Bilirubin AST ALT Alkaline Phosphatase Creatine Kinase Troponin I Total Protein Albumin Prealbumin Triglycerides Cholesterol Total LDL Cholesterol HDL Cholesterol Beta-Hydroxybutyrate Urine Color Urine Appearance Urine pH Ur Specific [place]rens Urine Protein Urine Glucose (UA) Urine Ketones Urine Blood Urine Nitrite Urine Bilirubin Urine Urobilinogen Ur Leukocyte Esterase Urine WBC (Auto) Urine RBC (Auto) U Epithel Cells (Auto) Urine Bacteria (Auto) Stool Occult Blood Acetone, Qual B-Hydroxybutyrate 04/09/19 04/09/19 04/09/19 05:48 17:18 21:30 WBC RBC Hgb Hct MCV MCH MCHC RDW Plt Count MPV Absolute Neuts (auto) Total Counted Neutrophils % Neutrophils % (Manual) Band Neutrophils % Lymphocytes % Lymphocytes % (Manual) Monocytes % Monocytes % (Manual) Eosinophils % Eosinophils % (Manual) Basophils % Basophils % (Manual) Myelocytes % (Man) Promyelocytes % (Man) Blast Cells % (Manual) Nucleated RBC % Metamyelocytes Hypochromia Toxic Granulation Platelet Estimate Platelet Comment Polychromasia Poikilocytosis Anisocytosis Microcytosis Macrocytosis Spherocytes Target Cells Tear Drop Cells Ovalocytes Stomatocytes Wayne Cells Acanthocytes (Spur) Fragmented RBCs Schistocytes PT with INR INR PTT (Actin FS) Fibrinogen Puncture Site ABG pH ABG pCO2 at Pt Temp ABG pO2 at Pt Temp ABG HCO3 ABG O2 Sat (Measured) ABG O2 Content ABG Base Excess Atul Test O2 Delivery Device Oxygen Flow Rate Vent Mode Vent Rate PEEP Pressure Support Vent Sodium 139 Potassium 3.6 Chloride 104 Carbon Dioxide 28 Anion Gap 6 L BUN 7.1 Creatinine 0.3 L Est GFR (CKD-EPI)AfAm 155.82 Est GFR (CKD-EPI)NonAf 134.44 POC Glucometer 260 71 Random Glucose 348 H Lactic Acid Calcium 7.4 L Phosphorus Magnesium 1.7 L Iron TIBC Iron Saturation Unsaturated IBC Ferritin Total Bilirubin 0.3 AST 20 ALT 14 Alkaline Phosphatase 173 H Creatine Kinase Troponin I Total Protein 5.5 L Albumin 1.7 L Prealbumin Triglycerides 151 H Cholesterol 149 Total LDL Cholesterol 72 HDL Cholesterol 55 Beta-Hydroxybutyrate Urine Color Urine Appearance Urine pH Ur Specific Wrens Urine Protein Urine Glucose (UA) Urine Ketones Urine Blood Urine Nitrite Urine Bilirubin Urine Urobilinogen Ur Leukocyte Esterase Urine WBC (Auto) Urine RBC (Auto) U Epithel Cells (Auto) Urine Bacteria (Auto) Stool Occult Blood Acetone, Qual B-Hydroxybutyrate 04/10/19 04/10/19 04/10/19 06:00 06:00 07:35 WBC 9.3 RBC 2.84 L Hgb 8.0 L Hct 24.8 L MCV 87.1 MCH 28.1 MCHC 32.3 RDW 23.6 H Plt Count 514 H MPV 8.3 Absolute Neuts (auto) 6.1 Total Counted Neutrophils % 66.0 Neutrophils % (Manual) Band Neutrophils % Lymphocytes % 21.3 Lymphocytes % (Manual) Monocytes % 11.5 H Monocytes % (Manual) Eosinophils % 0.8 D Eosinophils % (Manual) Basophils % 0.4 Basophils % (Manual) Myelocytes % (Man) Promyelocytes % (Man) Blast Cells % (Manual) Nucleated RBC % 0 Metamyelocytes Hypochromia 0 Toxic Granulation Platelet Estimate Increased Platelet Comment Polychromasia 1+ Poikilocytosis 1+ Anisocytosis 1+ Microcytosis 1+ Macrocytosis 0 Spherocytes Target Cells Tear Drop Cells 1+ Ovalocytes 1+ Stomatocytes 1+ Jose Antonio Cells Acanthocytes (Spur) 1+ Fragmented RBCs 1+ Schistocytes PT with INR INR PTT (Actin FS) Fibrinogen Puncture Site ABG pH ABG pCO2 at Pt Temp ABG pO2 at Pt Temp ABG HCO3 ABG O2 Sat (Measured) ABG O2 Content ABG Base Excess Atul Test O2 Delivery Device Oxygen Flow Rate Vent Mode Vent Rate PEEP Pressure Support Vent Sodium 138 Potassium 3.1 L Chloride 102 Carbon Dioxide 29 Anion Gap 7 L BUN 6.8 L Creatinine 0.3 L Est GFR (CKD-EPI)AfAm 155.82 Est GFR (CKD-EPI)NonAf 134.44 POC Glucometer 276 Random Glucose 225 H Lactic Acid Calcium 7.7 L Phosphorus Magnesium 1.7 L Iron TIBC Iron Saturation Unsaturated IBC Ferritin Total Bilirubin 0.3 AST 19 ALT 14 Alkaline Phosphatase 175 H Creatine Kinase Troponin I Total Protein 5.5 L Albumin 1.8 L Prealbumin Triglycerides Cholesterol Total LDL Cholesterol HDL Cholesterol Beta-Hydroxybutyrate Urine Color Urine Appearance Urine pH Ur Specific Wrens Urine Protein Urine Glucose (UA) Urine Ketones Urine Blood Urine Nitrite Urine Bilirubin Urine Urobilinogen Ur Leukocyte Esterase Urine WBC (Auto) Urine RBC (Auto) U Epithel Cells (Auto) Urine Bacteria (Auto) Stool Occult Blood Acetone, Qual B-Hydroxybutyrate 04/10/19 11:31 WBC RBC Hgb Hct MCV MCH MCHC RDW Plt Count MPV Absolute Neuts (auto) Total Counted Neutrophils % Neutrophils % (Manual) Band Neutrophils % Lymphocytes % Lymphocytes % (Manual) Monocytes % Monocytes % (Manual) Eosinophils % Eosinophils % (Manual) Basophils % Basophils % (Manual) Myelocytes % (Man) Promyelocytes % (Man) Blast Cells % (Manual) Nucleated RBC % Metamyelocytes Hypochromia Toxic Granulation Platelet Estimate Platelet Comment Polychromasia Poikilocytosis Anisocytosis Microcytosis Macrocytosis Spherocytes Target Cells Tear Drop Cells Ovalocytes Stomatocytes Wayne Cells Acanthocytes (Spur) Fragmented RBCs Schistocytes PT with INR INR PTT (Actin FS) Fibrinogen Puncture Site ABG pH ABG pCO2 at Pt Temp ABG pO2 at Pt Temp ABG HCO3 ABG O2 Sat (Measured) ABG O2 Content ABG Base Excess Atul Test O2 Delivery Device Oxygen Flow Rate Vent Mode Vent Rate PEEP Pressure Support Vent Sodium Potassium Chloride Carbon Dioxide Anion Gap BUN Creatinine Est GFR (CKD-EPI)AfAm Est GFR (CKD-EPI)NonAf POC Glucometer 86 Random Glucose Lactic Acid Calcium Phosphorus Magnesium Iron TIBC Iron Saturation Unsaturated IBC Ferritin Total Bilirubin AST ALT Alkaline Phosphatase Creatine Kinase Troponin I Total Protein Albumin Prealbumin Triglycerides Cholesterol Total LDL Cholesterol HDL Cholesterol Beta-Hydroxybutyrate Urine Color Urine Appearance Urine pH Ur Specific Wrens Urine Protein Urine Glucose (UA) Urine Ketones Urine Blood Urine Nitrite Urine Bilirubin Urine Urobilinogen Ur Leukocyte Esterase Urine WBC (Auto) Urine RBC (Auto) U Epithel Cells (Auto) Urine Bacteria (Auto) Stool Occult Blood Acetone, Qual B-Hydroxybutyrate Microbiology 04/08/19 22:24 Urine - Urine - Catheterized Urine Culture - Final NO GROWTH OBTAINED 04/08/19 16:25 Blood - Peripheral Venous Blood Culture - Preliminary NO GROWTH OBTAINED AFTER 24 HOURS, INCUBATION TO CONTINUE FOR 4 DAYS. 04/08/19 16:25 Blood - Peripheral Venous Blood Culture - Preliminary NO GROWTH OBTAINED AFTER 24 HOURS, INCUBATION TO CONTINUE FOR 4 DAYS. 04/02/19 19:20 Blood - Peripheral Venous Blood Culture - Final NO GROWTH AFTER 5 DAYS INCUBATION 04/02/19 19:30 Blood - Peripheral Venous Blood Culture - Final NO GROWTH AFTER 5 DAYS INCUBATION 04/02/19 18:20 Sputum - Endotrachea Suction/Ventilator Gram Stain - Final 04/02/19 18:20 Sputum - Endotrachea Suction/Ventilator Sputum Culture - Final Klebsiella Pneumoniae - Esbl 04/03/19 05:00 Urine - Urine Lott Urine Culture - Final NO GROWTH OBTAINED 03/31/19 00:00 Sputum - Endotrachea Suction/Ventilator Gram Stain - Final 03/31/19 00:00 Sputum - Endotrachea Suction/Ventilator Sputum Culture - Final Yeast Like Organism 03/28/19 10:40 Blood - Peripheral Venous Blood Culture - Final NO GROWTH AFTER 5 DAYS INCUBATION 03/28/19 11:03 Blood - Peripheral Venous Blood Culture - Final NO GROWTH AFTER 5 DAYS INCUBATION 03/26/19 08:30 Blood - Central Line Blood Culture - Final NO GROWTH AFTER 5 DAYS INCUBATION 03/25/19 18:30 Blood - Peripheral Venous Blood Culture - Final NO GROWTH AFTER 5 DAYS INCUBATION 03/25/19 18:30 Blood - Peripheral Venous Blood Culture - Final NO GROWTH AFTER 5 DAYS INCUBATION 03/25/19 17:00 Blood - Central Line Blood Culture - Final NO GROWTH AFTER 5 DAYS INCUBATION 03/21/19 18:15 Blood - Central Line Blood Culture - Final NO GROWTH AFTER 5 DAYS INCUBATION 03/21/19 13:25 Blood - Central Line Blood Culture - Final NO GROWTH AFTER 5 DAYS INCUBATION 03/23/19 19:00 Sputum - Endotrachea Suction/Ventilator Gram Stain - Final 03/23/19 19:00 Sputum - Endotrachea Suction/Ventilator Sputum Culture - Final Yeast Like Organism 03/23/19 19:00 Urine - Urine Lott Urine Culture - Final NO GROWTH OBTAINED 03/12/19 19:30 Peritoneal Fluid Gram Stain - Final 03/12/19 19:30 Peritoneal Fluid Body Fluid Culture - Final Klebsiella Pneumoniae - Esbl Enterococcus Faecalis 03/12/19 19:30 Peritoneal Fluid Anaerobic Culture - Final NO ANAEROBES WERE ISOLATED 03/14/19 23:00 Stool Clostridioides difficile Antigen - Final 03/14/19 23:00 Stool Clostridioides difficile Toxin Assay - Final 03/10/19 08:30 Blood - Arterial Blood Culture - Final NO GROWTH AFTER 5 DAYS INCUBATION 03/10/19 08:00 Blood - Arterial Blood Culture - Final NO GROWTH AFTER 5 DAYS INCUBATION 03/09/19 17:00 Urine - Urine Clean Catch Urine Culture - Final Vr Ec Faecium Problem List - Problems (1) Diabetes Code(s): E11.9 - TYPE 2 DIABETES MELLITUS WITHOUT COMPLICATIONS (2) HLD (hyperlipidemia) Code(s): E78.5 - HYPERLIPIDEMIA, UNSPECIFIED (3) HTN (hypertension) Code(s): I10 - ESSENTIAL (PRIMARY) HYPERTENSION (4) Crohn's disease Code(s): K50.90 - CROHN'S DISEASE, UNSPECIFIED, WITHOUT COMPLICATIONS Qualifiers: Gastrointestinal tract location: small intestine Digestive disease complication type: with rectal bleeding Qualified Code(s): K50.011 - Crohn's disease of small intestine with rectal bleeding (5) Cerebrovascular accident (CVA) Code(s): I63.9 - CEREBRAL INFARCTION, UNSPECIFIED Qualifiers: CVA mechanism: unspecified Qualified Code(s): I63.9 - Cerebral infarction, unspecified (6) Diabetes mellitus, insulin dependent (IDDM), uncontrolled Code(s): E10.65 - TYPE 1 DIABETES MELLITUS WITH HYPERGLYCEMIA Assessment/Plan 48 y.o. female with PMH of uncontrolled IDDM and DKA, Crohn's disease on prednisone, CVA, PE, HTN, HLD presenting with abdominal pain Acute Respiratory failure on MV s/p trach s/p cardiopulmonary arrest CVA Fever SB perforation s/p Ex-lap/RAYSHAWN/partial SB and omental resection with anastomosis/ washout Peritonitis : klebsiella/Enterococcus isolated C diff colitis Crohn's disease IDDM Hx of multiple DKA Hx of CVA Hx of PE HTN HLD -- Pt afebrile today, but vitals stable -- Persistent fevers: all latest blood cultures neg 24h -- continue Meropenem, Vancomycin -- continue monitor temps -- rest of care per ICU cc time: 38
[2019-04-10] MEDS ORDERED: INSULIN (LEVEMIR) 100 UNITS/ML UNITS SQ ONE (15:23)
--- NOTE | 2019-04-10 15:25 | PN ---
Progress Note (short form) - Note Progress Note: Awake No further episode of hypoglycemia On Tube feeding Intubated 2 Vital Signs Period Temp Pulse Resp BP Sys/Rapp Pulse Ox Last 24 Hr 97.8 F-101.1 F 83-108 22-30 119-143/72-86 100-100 PE: Intubated, s/P tracheostomy,awake Neck: supple Lungs: CTA CVS: s1S2 Abd: Benign Neuro: intubated CMP Sodium 138 mmol/L (136-145) 04/10/19 06:00 Potassium 3.1 mmol/L (3.5-5.1) L 04/10/19 06:00 Chloride 102 mmol/L (98-107) 04/10/19 06:00 Carbon Dioxide 29 mmol/L (21-32) 04/10/19 06:00 Anion Gap 7 MMOL/L (8-16) L 04/10/19 06:00 BUN 6.8 mg/dL (7-18) L 04/10/19 06:00 Creatinine 0.3 mg/dL (0.55-1.3) L 04/10/19 06:00 Est GFR (CKD-EPI)AfAm 155.82 04/10/19 06:00 Est GFR (CKD-EPI)NonAf 134.44 04/10/19 06:00 POC Glucometer 86 UNITS (80-120) 04/10/19 11:31 Random Glucose 225 mg/dL (74-106) H 04/10/19 06:00 Hemoglobin A1c % 9.8 % (4.2-6.3) H 03/10/19 07:20 Lactic Acid 1.0 mmol/L (0.4-2.0) 04/08/19 23:30 Calcium 7.7 mg/dL (8.5-10.1) L 04/10/19 06:00 Phosphorus 2.2 mg/dL (2.5-4.9) L 04/08/19 08:30 Magnesium 1.7 mg/dL (1.8-2.4) L 04/10/19 06:00 Iron 125 ug/dL (50-175) 03/20/19 17:00 TIBC 124 ug/dL (250-450) L 03/20/19 17:00 Iron Saturation 100 % (17.5-39) H 03/20/19 17:00 Unsaturated IBC -1 ug/dL (200-275) L 03/20/19 17:00 Ferritin 220.2 ng/ml (8-388) 03/20/19 17:00 Total Bilirubin 0.3 mg/dL (0.2-1) 04/10/19 06:00 AST 19 U/L (15-37) 04/10/19 06:00 ALT 14 U/L (13-61) 04/10/19 06:00 Alkaline Phosphatase 175 U/L (45-117) H 04/10/19 06:00 Creatine Kinase 109 U/L (26-192) 03/19/19 15:40 Troponin I < 0.02 ng/ml (0.00-0.05) 04/08/19 14:15 C-Reactive Protein 43.2 MG/DL (0.00-0.3) H 03/11/19 05:10 Total Protein 5.5 g/dl (6.4-8.2) L 04/10/19 06:00 Albumin 1.8 g/dl (3.4-5.0) L 04/10/19 06:00 Prealbumin 7.0 mg/dl (20-40) L 03/19/19 05:00 Triglycerides 151 mg/dL (0-150) H 04/09/19 05:48 Cholesterol 149 mg/dL (50-200) 04/09/19 05:48 Total LDL Cholesterol 72 mg/dL (5-100) 04/09/19 05:48 HDL Cholesterol 55 mg/dL (40-60) 04/09/19 05:48 Lipase 58 U/L (73-393) L 03/09/19 17:55 Beta-Hydroxybutyrate 0.9 mg/dL (0.2-2.8) 03/22/19 05:10 Current Medications Generic Name Dose Route Start Last Admin Trade Name Freq PRN Reason Stop Dose Admin Acetaminophen 1,000 mg 04/09/19 03:23 04/09/19 13:07 Ofirmev Injection - IVPB 1,000 mg Q6H PRN Administration FEVER Albuterol/Ipratropium 1 amp 04/08/19 18:07 Duoneb - NEB Q6H PRN SHORTNESS OF BREATH Amino Acids 30 ml 04/09/19 10:00 04/10/19 09:54 Prosource No Carb Liquid Pkt PO 30 ml DAILY [facility] Administration Aspirin 81 mg 04/09/19 14:00 04/10/19 09:46 Ecotrin - PO 81 mg DAILY [facility] Administration Atorvastatin Calcium 40 mg 04/09/19 22:00 04/09/19 21:04 Lipitor - PO 40 mg HS [facility] Administration Chlorhexidine Gluconate 1 applic 04/08/19 22:00 04/09/19 21:04 Hibiclens For Decolonization - TP 1 applic HS [facility] Administration Chlorhexidine Gluconate 15 ml 04/08/19 22:00 04/10/19 09:54 Peridex - MM 15 ml BID [facility] Administration Dextrose 4 gm 04/08/19 18:07 Glucose Tablet - PO PRN PRN HYPOGLYCEMIA Enoxaparin Sodium 70 mg 04/08/19 22:00 04/10/19 09:46 Lovenox - SQ 70 mg BID [facility] Administration Dextrose/Lactated Ringer's 1,000 mls @ 75 mls/hr 04/08/19 18:07 04/09/19 21: 03 D5-Lr - IV 75 mls/hr ASDIR [facility] Administration Meropenem 1 gm/ Dextrose 100 mls @ 200 mls/hr 04/09/19 02:00 04/10/19 09:47 IVPB 200 mls/hr Q8H-IV [facility] Administration Insulin Aspart 1 vial 04/09/19 18:00 04/10/19 12:15 Novolog Vial Sliding Scale - SQ Not Given Q6HPO [facility] Protocol Morphine Sulfate 2 mg 04/09/19 03:23 Morphine Sulfate IVPUSH Q4H PRN PAIN LEVEL 7 - 10 Mupirocin 1 applic 04/08/19 22:00 04/10/19 09:46 Bactroban Ointment (For Decolonization) - NS 04/13/19 21:59 1 applic BID [facility] Administration Nystatin 1 applic 04/08/19 22:00 04/10/19 12:54 Mycostatin Ointment - TP 1 applic BID [facility] Administration Ondansetron HCl 4 mg 04/08/19 18:07 Zofran Injection IVPUSH Q6H PRN NAUSEA AND/OR VOMITING Pantoprazole Sodium 40 mg 04/08/19 22:00 04/10/19 09:54 Protonix Iv IVPUSH 40 mg BID [facility] Administration Vancomycin HCl 125 mg 04/09/19 00:00 04/10/19 12:55 Vancomycin Oral Solution PO 125 mg Q6HPO [facility] Administration AP: T1DM with acidosis: Acidosis resolved, episode of hypoglycemia S/P Tracheostomy s/p Cardiopulmonary Arrest R/o Anoxic Brain Injury Acute Hypoxic Respiratory Failure Perforated Small Bowel s/p ex-lap/RAYSHAWN/segmental SB resection Crohn's Disease Peritonitis +C diff Colitis Septic Shock/Lactic Acidosis h/o PE HTN h/o CVA Pt has type 1 DM and is sensitive to Insulin. Will limit maximum NOvolog to 8 units coverage even if BGM is >400. Repeat BGM after 2 hours and give 2 to 3 units more Novolog is necessary when BGM >400 Pt s/p Tracheostomy Iv hydration as necessary, Add D5NS whenever tube feeding is on hold for any reason Off Insulin drip BGM Q 6 hour Levemir 6 units daily Novolog coverage Q 6 hrs Adjust Insulin dose as necessary Replace electrolytes as necessary
[2019-04-10 17:34] LABS: BASO % 0.7 % (0-2.0); EOS % 0.7 % (0-4.5); HEMATOCRIT 27.2 % (32.4-45.2); HEMOGLOBIN 8.6 GM/dL (10.7-15.3); LYMPH % 20.3 % (8-40); MCH 28.2 pg (25.7-33.7); MCHC 31.8 g/dl (32.0-36.0); MEAN CELL VOLUME 88.5 fl (80-96); MONO % 11.1 % (3.8-10.2); NEUT % 67.2 % (42.8-82.8); PLATELET COUNT 304 K/MM3 (134-434); RBC 3.07 M/mm3 (3.60-5.2); RDW 23.1 % (11.6-15.6); WHITE BLOOD COUNT 10.6 K/mm3 (4.0-10.0)
[2019-04-10 19:05] LABS: PLATELET ESTIMATE ADEQUATE
[2019-04-10] MEDS: CHLORHEXIDINE GLUCONATE 4% CLEANSER FOR DECOLONIZATION TP SCH (21:53)
--- NOTE | 2019-04-10 22:14 | PN ---
Progress Note (short form) - Note Progress Note: NEUROSURGERY Pt examined in ICU Brother and sister in law at bedside through the entire visit Care d/w Dr Mancini previously PE trach'd Some purposeful movements, does not fully follow commands CN- b pupils 6 mm reactive; face symmetric; Motor- L UE and LE, R LE 3-4-; R UE 1-2; Sensation- difficult to assess fully; DTR- 1+, b toes upgoing Labs reviewed L carotid doppler- no hemodynamically significant L CCA/ICA stenosis CT head- acute-subacute L MCA (putamen and insular, centrum semiovale and parietal cortical-subcortical infarct not present on prior -2018 CT. Chronic R MCA infarct. Minimal L cortical mass effect. No midline shift. No HCP. Pt with multiple medical issues (cardiac, prior stroke, DM, small bowel perforation/peritonitis and possible hypotensive/hypoxemic episode) No neurosurgical intervention indicated nor recommended Such ischemic strokes should generally be managed medically by consulting neurologist Though isolated territorial stroke tends to recover with time, this patient has multiple medical co-morbidities, making another potentially catastrophic event much more likely
[2019-04-10] MEDS: ATORVASTATIN CA 40 MG TABLET (FP) PO SCH (22:25)
[2019-04-10] MEDS ORDERED: DEXTROSE 50%-WATER - 25 GM/50 ML VIAL IVPUSH ONE (22:59)
[2019-04-10] MEDS ORDERED: DEXTROSE 50%-WATER 25 GM/50 ML DISP.SYRIN ONE (23:10)
[2019-04-11] MEDS ORDERED: PT OWN MED DRAWER 7, Y5N ONE ×3 (00:18→18:18)
[2019-04-11] MEDS: INSULIN SLIDING SCALE (NOVOLOG) 1 VIAL SQ SCH ×4 (00:35→18:15)
[2019-04-11] MEDS: VANCOMYCIN 250 MG/5 ML ORAL SOLUTION PO SCH ×2 (00:35→05:45)
[2019-04-11] MEDS: DEXTROSE 5%-LACTATED RINGERS 1,000 ML IV SCH (01:00)
[2019-04-11] MEDS ORDERED: MEROPENEM 1 GM VIAL (RESTRICTED TO ID) IVPB ONE (01:37)
[2019-04-11] MEDS ORDERED: DEXTROSE 5%-WATER 100 ML IVPB ONE (01:37)
[2019-04-11] MEDS: MEROPENEM 1 GM in DEXTROSE 5%-WATER 100 ML IVPB SCH ×4 (01:40→19:14)
[2019-04-11] MEDS ORDERED: INSULIN (LEVEMIR) 100 UNITS/ML UNITS SQ SCH (07:00)
[2019-04-11 07:54] LABS: BASO % 0.7 % (0-2.0); EOS % 0.8 % (0-4.5); HEMATOCRIT 25.5 % (32.4-45.2); HEMOGLOBIN 8.4 GM/dL (10.7-15.3); LYMPH % 16.3 % (8-40); MCH 28.5 pg (25.7-33.7); MCHC 32.9 g/dl (32.0-36.0); MEAN CELL VOLUME 86.7 fl (80-96); MONO % 8.6 % (3.8-10.2); NEUT % 73.6 % (42.8-82.8); PLATELET COUNT 556 K/MM3 (134-434); RBC 2.94 M/mm3 (3.60-5.2); RDW 23.4 % (11.6-15.6); WHITE BLOOD COUNT 9.3 K/mm3 (4.0-10.0)
[2019-04-11 08:28] LABS: ALBUMIN 1.6 g/dl (3.4-5.0); BILIRUBIN,TOTAL 0.2 mg/dL (0.2-1); BLOOD UREA NITROGEN 10.7 mg/dL (7-18); CALCIUM 7.9 mg/dL (8.5-10.1); CREATININE 0.4 mg/dL (0.55-1.3); PHOSPHOROUS 2.3 mg/dL (2.5-4.9); POTASSIUM 3.3 mmol/L (3.5-5.1); TOT PROT 5.4 g/dl (6.4-8.2)
--- NOTE | 2019-04-11 10:12 | PN ---
Teaching Attending Note Name of Resident: Marylu Pichardo ATTENDING PHYSICIAN STATEMENT I saw and evaluated the patient. I reviewed the resident's note and discussed the case with the resident. I agree with the resident's findings and plan as documented. SUBJECTIVE: saw and evaluated the patient. I reviewed the resident's note and discussed the case with the resident. I agree with the resident's findings and plan as documented. SUBJECTIVE: Patient seen and examined in the ICU. Awake and tracking. AC Mode of vent. No acute events overnight. Afebrile. Intake & Output 04/08/19 04/09/19 04/10/19 04/11/19 23:59 23:59 23:59 23:59 Intake Total 1875 2650 2200 1185 Output Total 3700 1895 1700 600 Balance -1825 755 500 585 Weight 145 lb 9.6 oz 124 lb 3.2 oz 127 lb 1 oz 130 lb 12.8 oz Last Vital Signs Temp Pulse Resp BP Pulse Ox 98.4 F 94 H 26 H 125/76 100 04/11/19 06:00 04/11/19 08:00 04/11/19 08:00 04/11/19 08:00 04/11/19 02:00 Active Medications Acetaminophen (Ofirmev Injection -) 1,000 mg IVPB Q6H PRN PRN Reason: FEVER Last Admin: 04/09/19 13:07 Dose: 1,000 mg Albuterol/Ipratropium (Duoneb -) 1 amp NEB Q6H PRN PRN Reason: SHORTNESS OF BREATH Amino Acids (Prosource No Carb Liquid Pkt) [address] [facility] Last Admin: 04/10/19 09:54 Dose: 30 ml Aspirin (Ecotrin -) [address] [facility] Last Admin: 04/10/19 09:46 Dose: 81 mg Atorvastatin Calcium (Lipitor -) 40 mg PO HS [facility] Last Admin: 04/10/19 22:25 Dose: 40 mg Chlorhexidine Gluconate (Hibiclens For Decolonization -) [address] [facility] Last Admin: 04/10/19 21:53 Dose: 1 applic Chlorhexidine Gluconate (Peridex -) 15 ml MM BID [facility] Last Admin: 04/10/19 21:52 Dose: 15 ml Dextrose (Glucose Tablet -) 4 gm PO PRN PRN PRN Reason: HYPOGLYCEMIA Enoxaparin Sodium (Lovenox -) [address] [facility] Last Admin: 04/10/19 21:52 Dose: 70 mg Dextrose/Lactated Ringer's (D5-Lr -) 1,000 mls @ 75 mls/hr IV ASDIR [facility] Last Admin: 04/11/19 01:00 Dose: 75 mls/hr Meropenem 1 gm/ Dextrose 100 mls @ 200 mls/hr IVPB Q8H-IV [facility] Last Admin: 04/11/19 01:40 Dose: 200 mls/hr Insulin Aspart (Novolog Vial Sliding Scale -) [address] [facility]; Protocol Last Admin: 04/11/19 05:41 Dose: 2 units Insulin Detemir (Levemir Vial) [address] [facility] Last Admin: 04/11/19 06:09 Dose: 6 unit Morphine Sulfate (Morphine Sulfate) 2 mg IVPUSH Q4H PRN PRN Reason: PAIN LEVEL 7 - 10 Mupirocin (Bactroban Ointment (For Decolonization) -) [address] [facility] Stop: 04/13/19 21:59 Last Admin: 04/10/19 21:55 Dose: 1 applic Nystatin (Mycostatin Ointment -) [address] [facility] Last Admin: 04/10/19 21:55 Dose: 1 applic Ondansetron HCl (Zofran Injection) 4 mg IVPUSH Q6H PRN PRN Reason: NAUSEA AND/OR VOMITING Pantoprazole Sodium (Protonix Iv) [address] [facility] Last Admin: 04/10/19 21:52 Dose: 40 mg Vancomycin HCl (Vancomycin Oral Solution) [address] [facility] Last Admin: 04/11/19 05:45 Dose: 125 mg GENERAL: Awake and tracking, NAD HEAD: Normal with no signs of trauma. EYES: EOMI Sclera Clear EARS, NOSE, THROAT: MMM NECK: Supple, Trached LUNGS: Vented, decreased Breath sounds at bases HEART: S1S2 ABDOMEN: Wound Vac, ND, No facial grimacing to palpation LOWER EXTREMITIES: SCDs, No CCE NEUROLOGICAL: Moves all extremities, unable to follow commands Laboratory Results - last 24 hr 04/10/19 04/10/19 04/10/19 06:00 11:31 16:25 WBC 10.6 H RBC 3.07 L Hgb 8.6 L Hct 27.2 L MCV 88.5 MCH 28.2 MCHC 31.8 L RDW 23.1 H Plt Count 304 D MPV 8.0 Absolute Neuts (auto) 7.1 Neutrophils % 67.2 Lymphocytes % 20.3 Monocytes % 11.1 H Eosinophils % 0.7 Basophils % 0.7 Nucleated RBC % 0 Hypochromia 0 Platelet Estimate Increased Adequate Platelet Comment Slide reviewed Polychromasia 1+ Poikilocytosis 1+ Anisocytosis 1+ Microcytosis 1+ Macrocytosis 0 Tear Drop Cells 1+ Ovalocytes 1+ Stomatocytes 1+ Acanthocytes (Spur) 1+ Fragmented RBCs 1+ Sodium Potassium Chloride Carbon Dioxide Anion Gap BUN Creatinine Est GFR (CKD-EPI)AfAm Est GFR (CKD-EPI)NonAf POC Glucometer 86 Random Glucose Calcium Phosphorus Magnesium Total Bilirubin AST ALT Alkaline Phosphatase Total Protein Albumin 04/10/19 04/10/19 04/11/19 17:26 22:44 00:29 WBC RBC Hgb Hct MCV MCH MCHC RDW Plt Count MPV Absolute Neuts (auto) Neutrophils % Lymphocytes % Monocytes % Eosinophils % Basophils % Nucleated RBC % Hypochromia Platelet Estimate Platelet Comment Polychromasia Poikilocytosis Anisocytosis Microcytosis Macrocytosis Tear Drop Cells Ovalocytes Stomatocytes Acanthocytes (Spur) Fragmented RBCs Sodium Potassium Chloride Carbon Dioxide Anion Gap BUN Creatinine Est GFR (CKD-EPI)AfAm Est GFR (CKD-EPI)NonAf POC Glucometer 339 66 130 Random Glucose Calcium Phosphorus Magnesium Total Bilirubin AST ALT Alkaline Phosphatase Total Protein Albumin 04/11/19 04/11/19 04/11/19 05:39 05:50 05:50 WBC 9.3 RBC 2.94 L Hgb 8.4 L Hct 25.5 L MCV 86.7 MCH 28.5 MCHC 32.9 RDW 23.4 H Plt Count 556 H D MPV 8.0 Absolute Neuts (auto) 6.9 Neutrophils % 73.6 Lymphocytes % 16.3 Monocytes % 8.6 Eosinophils % 0.8 Basophils % 0.7 Nucleated RBC % 0 Hypochromia Platelet Estimate Platelet Comment Polychromasia Poikilocytosis Anisocytosis Microcytosis Macrocytosis Tear Drop Cells Ovalocytes Stomatocytes Acanthocytes (Spur) Fragmented RBCs Sodium 139 Potassium 3.3 L Chloride 104 Carbon Dioxide 26 Anion Gap 9 BUN 10.7 Creatinine 0.4 L Est GFR (CKD-EPI)AfAm 141.75 Est GFR (CKD-EPI)NonAf 122.30 POC Glucometer 227 Random Glucose 246 H Calcium 7.9 L Phosphorus 2.3 L Magnesium 2.0 Total Bilirubin 0.2 AST 22 ALT 14 Alkaline Phosphatase 180 H Total Protein 5.4 L Albumin 1.6 L ASSESSMENT/PLAN: Type I IDDM PE (on Lovenox) Frequent admissions for DKA HTN 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
--- NOTE | 2019-04-11 10:42 | PN ---
Physical Exam: SUBJECTIVE: Patient seen and examined OBJECTIVE: Vital Signs Period Temp Pulse Resp BP Sys/Rapp Pulse Ox Last 24 Hr 96.9 F-98.5 F 82-95 24-30 103-132/68-94 97-100 GENERAL: The patient is awake, alert, and fully oriented, in no acute distress. HEAD: Normal with no signs of trauma. EYES: PERRL, extraocular movements intact, sclera anicteric, conjunctiva clear. No ptosis. ENT: Ears normal, nares patent, oropharynx clear without exudates, moist mucous membranes. NECK: Trachea midline, full range of motion, supple. LUNGS: Breath sounds equal, clear to auscultation bilaterally, no wheezes, no crackles, no accessory muscle use. HEART: Regular rate and rhythm, S1, S2 without murmur, rub or gallop. ABDOMEN: Soft, nontender, nondistended, normoactive bowel sounds, no guarding, no rebound, no hepatosplenomegaly, no masses. EXTREMITIES: 2+ pulses, warm, well-perfused, no edema. NEUROLOGICAL: Cranial nerves II through XII grossly intact. Normal speech, gait not observed. PSYCH: Normal mood, normal affect. SKIN: Warm, dry, normal turgor, no rashes or lesions noted Laboratory Results - last 24 hr 04/10/19 04/10/19 04/10/19 06:00 11:31 16:25 WBC 10.6 H RBC 3.07 L Hgb 8.6 L Hct 27.2 L MCV 88.5 MCH 28.2 MCHC 31.8 L RDW 23.1 H Plt Count 304 D MPV 8.0 Absolute Neuts (auto) 7.1 Neutrophils % 67.2 Lymphocytes % 20.3 Monocytes % 11.1 H Eosinophils % 0.7 Basophils % 0.7 Nucleated RBC % 0 Hypochromia 0 Platelet Estimate Increased Adequate Platelet Comment Slide reviewed Polychromasia 1+ Poikilocytosis 1+ Anisocytosis 1+ Microcytosis 1+ Macrocytosis 0 Tear Drop Cells 1+ Ovalocytes 1+ Stomatocytes 1+ Acanthocytes (Spur) 1+ Fragmented RBCs 1+ Sodium Potassium Chloride Carbon Dioxide Anion Gap BUN Creatinine Est GFR (CKD-EPI)AfAm Est GFR (CKD-EPI)NonAf POC Glucometer 86 Random Glucose Calcium Phosphorus Magnesium Total Bilirubin AST ALT Alkaline Phosphatase Total Protein Albumin 04/10/19 04/10/19 04/11/19 17:26 22:44 00:29 WBC RBC Hgb Hct MCV MCH MCHC RDW Plt Count MPV Absolute Neuts (auto) Neutrophils % Lymphocytes % Monocytes % Eosinophils % Basophils % Nucleated RBC % Hypochromia Platelet Estimate Platelet Comment Polychromasia Poikilocytosis Anisocytosis Microcytosis Macrocytosis Tear Drop Cells Ovalocytes Stomatocytes Acanthocytes (Spur) Fragmented RBCs Sodium Potassium Chloride Carbon Dioxide Anion Gap BUN Creatinine Est GFR (CKD-EPI)AfAm Est GFR (CKD-EPI)NonAf POC Glucometer 339 66 130 Random Glucose Calcium Phosphorus Magnesium Total Bilirubin AST ALT Alkaline Phosphatase Total Protein Albumin 04/11/19 04/11/19 04/11/19 05:39 05:50 05:50 WBC 9.3 RBC 2.94 L Hgb 8.4 L Hct 25.5 L MCV 86.7 MCH 28.5 MCHC 32.9 RDW 23.4 H Plt Count 556 H D MPV 8.0 Absolute Neuts (auto) 6.9 Neutrophils % 73.6 Lymphocytes % 16.3 Monocytes % 8.6 Eosinophils % 0.8 Basophils % 0.7 Nucleated RBC % 0 Hypochromia Platelet Estimate Platelet Comment Polychromasia Poikilocytosis Anisocytosis Microcytosis Macrocytosis Tear Drop Cells Ovalocytes Stomatocytes Acanthocytes (Spur) Fragmented RBCs Sodium 139 Potassium 3.3 L Chloride 104 Carbon Dioxide 26 Anion Gap 9 BUN 10.7 Creatinine 0.4 L Est GFR (CKD-EPI)AfAm 141.75 Est GFR (CKD-EPI)NonAf 122.30 POC Glucometer 227 Random Glucose 246 H Calcium 7.9 L Phosphorus 2.3 L Magnesium 2.0 Total Bilirubin 0.2 AST 22 ALT 14 Alkaline Phosphatase 180 H Total Protein 5.4 L Albumin 1.6 L Active Medications Generic Name Dose Route Start Last Admin Trade Name Freq PRN Reason Stop Dose Admin Acetaminophen 1,000 mg 04/09/19 03:23 04/09/19 13:07 Ofirmev Injection - IVPB 1,000 mg Q6H PRN Administration FEVER Albuterol/Ipratropium 1 amp 04/08/19 18:07 Duoneb - NEB Q6H PRN SHORTNESS OF BREATH Amino Acids 30 ml 04/09/19 10:00 04/10/19 09:54 Prosource No Carb Liquid Pkt PO 30 ml DAILY [facility] Administration Aspirin 81 mg 04/09/19 14:00 04/10/19 09:46 Ecotrin - PO 81 mg DAILY [facility] Administration Atorvastatin Calcium 40 mg 04/09/19 22:00 04/10/19 22:25 Lipitor - PO 40 mg HS [facility] Administration Chlorhexidine Gluconate 1 applic 04/08/19 22:00 04/10/19 21:53 Hibiclens For Decolonization - TP 1 applic HS [facility] Administration Chlorhexidine Gluconate 15 ml 04/08/19 22:00 04/10/19 21:52 Peridex - MM 15 ml BID [facility] Administration Dextrose 4 gm 04/08/19 18:07 Glucose Tablet - PO PRN PRN HYPOGLYCEMIA Enoxaparin Sodium 70 mg 04/08/19 22:00 04/10/19 21:52 Lovenox - SQ 70 mg BID [facility] Administration Dextrose/Lactated Ringer's 1,000 mls @ 75 mls/hr 04/08/19 18:07 04/11/19 01: 00 D5-Lr - IV 75 mls/hr ASDIR [facility] Administration Meropenem 1 gm/ Dextrose 100 mls @ 200 mls/hr 04/09/19 02:00 04/11/19 01:40 IVPB 200 mls/hr Q8H-IV [facility] Administration Insulin Aspart 1 vial 04/09/19 18:00 04/11/19 05:41 Novolog Vial Sliding Scale - SQ 2 units Q6HPO [facility] Administration Protocol Insulin Detemir 6 units 04/11/19 07:00 04/11/19 06:09 Levemir Vial SQ 6 unit ACBK [facility] Administration Morphine Sulfate 2 mg 04/09/19 03:23 Morphine Sulfate IVPUSH Q4H PRN PAIN LEVEL 7 - 10 Mupirocin 1 applic 04/08/19 22:00 04/10/19 21:55 Bactroban Ointment (For Decolonization) - NS 04/13/19 21:59 1 applic BID [facility] Administration Nystatin 1 applic 04/08/19 22:00 04/10/19 21:55 Mycostatin Ointment - TP 1 applic BID [facility] Administration Ondansetron HCl 4 mg 04/08/19 18:07 Zofran Injection IVPUSH Q6H PRN NAUSEA AND/OR VOMITING Pantoprazole Sodium 40 mg 04/08/19 22:00 04/10/19 21:52 Protonix Iv IVPUSH 40 mg BID [facility] Administration Vancomycin HCl 125 mg 04/09/19 00:00 04/11/19 05:45 Vancomycin Oral Solution PO 125 mg Q6HPO [facility] Administration ASSESSMENT/PLAN:
--- NOTE | 2019-04-11 10:44 | PN ---
Progress Note, Physician History of Present Illness: Pt arousable, noncommunicative. +trach, afebrile, no distress. - Current Medication List Current Medications: Active Medications Acetaminophen (Ofirmev Injection -) 1,000 mg IVPB Q6H PRN PRN Reason: FEVER Last Admin: 04/09/19 13:07 Dose: 1,000 mg Albuterol/Ipratropium (Duoneb -) 1 amp NEB Q6H PRN PRN Reason: SHORTNESS OF BREATH Amino Acids (Prosource No Carb Liquid Pkt) 30 ml PO DAILY [facility] Last Admin: 04/10/19 09:54 Dose: 30 ml Aspirin (Ecotrin -) 81 mg PO DAILY [facility] Last Admin: 04/10/19 09:46 Dose: 81 mg Atorvastatin Calcium (Lipitor -) 40 mg PO HS [facility] Last Admin: 04/10/19 22:25 Dose: 40 mg Chlorhexidine Gluconate (Hibiclens For Decolonization -) 1 applic TP HS [facility] Last Admin: 04/10/19 21:53 Dose: 1 applic Chlorhexidine Gluconate (Peridex -) 15 ml MM BID [facility] Last Admin: 04/10/19 21:52 Dose: 15 ml Dextrose (Glucose Tablet -) 4 gm PO PRN PRN PRN Reason: HYPOGLYCEMIA Enoxaparin Sodium (Lovenox -) 70 mg SQ BID [facility] Last Admin: 04/10/19 21:52 Dose: 70 mg Dextrose/Lactated Ringer's (D5-Lr -) 1,000 mls @ 75 mls/hr IV ASDIR [facility] Last Admin: 04/11/19 01:00 Dose: 75 mls/hr Meropenem 1 gm/ Dextrose 100 mls @ 200 mls/hr IVPB Q8H-IV [facility] Last Admin: 04/11/19 01:40 Dose: 200 mls/hr Insulin Aspart (Novolog Vial Sliding Scale -) 1 vial SQ Q6HPO [facility]; Protocol Last Admin: 04/11/19 05:41 Dose: 2 units Insulin Detemir (Levemir Vial) 6 units SQ ACBK [facility] Last Admin: 04/11/19 06:09 Dose: 6 unit Morphine Sulfate (Morphine Sulfate) 2 mg IVPUSH Q4H PRN PRN Reason: PAIN LEVEL 7 - 10 Mupirocin (Bactroban Ointment (For Decolonization) -) 1 applic NS BID [facility] Stop: 04/13/19 21:59 Last Admin: 04/10/19 21:55 Dose: 1 applic Nystatin (Mycostatin Ointment -) 1 applic TP BID [facility] Last Admin: 04/10/19 21:55 Dose: 1 applic Ondansetron HCl (Zofran Injection) 4 mg IVPUSH Q6H PRN PRN Reason: NAUSEA AND/OR VOMITING Pantoprazole Sodium (Protonix Iv) 40 mg IVPUSH BID [facility] Last Admin: 04/10/19 21:52 Dose: 40 mg Vancomycin HCl (Vancomycin Oral Solution) 125 mg PO Q6HPO [facility] Last Admin: 04/11/19 05:45 Dose: 125 mg - Objective Vital Signs: Vital Signs Temperature 98.5 F 04/11/19 10:00 Pulse Rate 95 H 04/11/19 10:00 Respiratory Rate 30 H 04/11/19 10:00 Blood Pressure 132/80 04/11/19 10:00 O2 Sat by Pulse Oximetry (%) 100 04/11/19 02:00 Constitutional: Yes: No Distress Cardiovascular: Yes: Regular Rate and Rhythm Respiratory: Yes: Regular, Mechanically Ventilated, Other (trach) Gastrointestinal: Yes: Normal Bowel Sounds, Soft Genitourinary: Yes: Lott Present Edema: Yes Integumentary: Yes: WNL Wound/Incision: Yes: Dressing Dry and Intact Neurological: Yes: Alert Labs: CBC, BMP 04/11/19 05:50 04/11/19 05:50 INR, PTT INR 0.95 (0.83-1.09) 03/26/19 06:00 Fibrinogen 359.0 mg/dL (238-498) 03/19/19 23:15 Microbiology 04/08/19 16:25 Blood - Peripheral Venous Blood Culture - Preliminary NO GROWTH OBTAINED AFTER 48 HOURS, INCUBATION TO CONTINUE FOR 3 DAYS. 04/08/19 16:25 Blood - Peripheral Venous Blood Culture - Preliminary NO GROWTH OBTAINED AFTER 48 HOURS, INCUBATION TO CONTINUE FOR 3 DAYS. 04/08/19 22:24 Urine - Urine - Catheterized Urine Culture - Final NO GROWTH OBTAINED 04/02/19 19:20 Blood - Peripheral Venous Blood Culture - Final NO GROWTH AFTER 5 DAYS INCUBATION 04/02/19 19:30 Blood - Peripheral Venous Blood Culture - Final NO GROWTH AFTER 5 DAYS INCUBATION 04/02/19 18:20 Sputum - Endotrachea Suction/Ventilator Gram Stain - Final 04/02/19 18:20 Sputum - Endotrachea Suction/Ventilator Sputum Culture - Final Klebsiella Pneumoniae - Esbl 04/03/19 05:00 Urine - Urine Lott Urine Culture - Final NO GROWTH OBTAINED 03/31/19 00:00 Sputum - Endotrachea Suction/Ventilator Gram Stain - Final 03/31/19 00:00 Sputum - Endotrachea Suction/Ventilator Sputum Culture - Final Yeast Like Organism 03/28/19 10:40 Blood - Peripheral Venous Blood Culture - Final NO GROWTH AFTER 5 DAYS INCUBATION 03/28/19 11:03 Blood - Peripheral Venous Blood Culture - Final NO GROWTH AFTER 5 DAYS INCUBATION 03/26/19 08:30 Blood - Central Line Blood Culture - Final NO GROWTH AFTER 5 DAYS INCUBATION 03/25/19 18:30 Blood - Peripheral Venous Blood Culture - Final NO GROWTH AFTER 5 DAYS INCUBATION 03/25/19 18:30 Blood - Peripheral Venous Blood Culture - Final NO GROWTH AFTER 5 DAYS INCUBATION 03/25/19 17:00 Blood - Central Line Blood Culture - Final NO GROWTH AFTER 5 DAYS INCUBATION 03/21/19 18:15 Blood - Central Line Blood Culture - Final NO GROWTH AFTER 5 DAYS INCUBATION 03/21/19 13:25 Blood - Central Line Blood Culture - Final NO GROWTH AFTER 5 DAYS INCUBATION 03/23/19 19:00 Sputum - Endotrachea Suction/Ventilator Gram Stain - Final 03/23/19 19:00 Sputum - Endotrachea Suction/Ventilator Sputum Culture - Final Yeast Like Organism 03/23/19 19:00 Urine - Urine Lott Urine Culture - Final NO GROWTH OBTAINED 03/12/19 19:30 Peritoneal Fluid Gram Stain - Final 03/12/19 19:30 Peritoneal Fluid Body Fluid Culture - Final Klebsiella Pneumoniae - Esbl Enterococcus Faecalis 03/12/19 19:30 Peritoneal Fluid Anaerobic Culture - Final NO ANAEROBES WERE ISOLATED 03/14/19 23:00 Stool Clostridioides difficile Antigen - Final 03/14/19 23:00 Stool Clostridioides difficile Toxin Assay - Final 03/10/19 08:30 Blood - Arterial Blood Culture - Final NO GROWTH AFTER 5 DAYS INCUBATION 03/10/19 08:00 Blood - Arterial Blood Culture - Final NO GROWTH AFTER 5 DAYS INCUBATION 03/09/19 17:00 Urine - Urine Clean Catch Urine Culture - Final Vr Ec Faecium - ....Imaging Ultrasound: Report Reviewed Problem List - Problems (1) Diabetes Code(s): E11.9 - TYPE 2 DIABETES MELLITUS WITHOUT COMPLICATIONS (2) HLD (hyperlipidemia) Code(s): E78.5 - HYPERLIPIDEMIA, UNSPECIFIED (3) HTN (hypertension) Code(s): I10 - ESSENTIAL (PRIMARY) HYPERTENSION (4) Crohn's disease Code(s): K50.90 - CROHN'S DISEASE, UNSPECIFIED, WITHOUT COMPLICATIONS Qualifiers: Gastrointestinal tract location: small intestine Digestive disease complication type: with rectal bleeding Qualified Code(s): K50.011 - Crohn's disease of small intestine with rectal bleeding (5) Cerebrovascular accident (CVA) Code(s): I63.9 - CEREBRAL INFARCTION, UNSPECIFIED Qualifiers: CVA mechanism: unspecified Qualified Code(s): I63.9 - Cerebral infarction, unspecified (6) Diabetes mellitus, insulin dependent (IDDM), uncontrolled Code(s): E10.65 - TYPE 1 DIABETES MELLITUS WITH HYPERGLYCEMIA Assessment/Plan 48 y.o. female with PMH of uncontrolled IDDM and DKA, Crohn's disease on prednisone, CVA, PE, HTN, HLD originally presented with abdominal pain Acute Respiratory failure on MV s/p trach s/p cardiopulmonary arrest Acute CVA Fever SB perforation s/p Ex-lap/RAYSHAWN/partial SB and omental resection with anastomosis/ washout Peritonitis : klebsiella/Enterococcus isolated C diff colitis Crohn's disease IDDM Hx of multiple DKA Hx of CVA Hx of PE HTN HLD -- afebrile today, vitals stable -- Recent blood cultures neg. / Urine cultures neg -- d/c antibiotics -- continue monitor temps, now afebrile , wbc normal -- rest of care per ICU cc time: 38
[2019-04-11] MEDS: ENOXAPARIN NA (PORCINE) 80 MG/0.8 ML DISP.SYRIN SQ SCH (10:55)
[2019-04-11] MEDS: MUPIROCIN 2% TOPICAL OINTMENT FOR DECOLONIZATION NS SCH ×2 (10:55→21:23)
[2019-04-11] MEDS: ASPIRIN COATED 81 MG TABLET.EC PO SCH (10:55)
[2019-04-11] MEDS: PANTOPRAZOLE SODIUM 40 MG VIAL IVPUSH SCH ×2 (10:56→21:04)
[2019-04-11] MEDS: CHLORHEXIDINE GLUCONATE 0.12% 15ML CUP MM SCH ×2 (10:56→21:04)
[2019-04-11] MEDS: AMINO ACIDS/PROTEIN HYDROLYS 30 ML LIQUID.PKT PO SCH (10:56)
[2019-04-11] MEDS: NYSTATIN 100000 UNIT/GM TOPICAL OINTMENT 15 GM TUBE TP SCH ×2 (10:56→21:24)
--- NOTE | 2019-04-11 11:06 | PN ---
Physical Exam: SUBJECTIVE: Patient seen and examined in ICU. No acute events. Pt mental status unchanged. OBJECTIVE: Vital Signs Period Temp Pulse Resp BP Sys/Rapp Pulse Ox Last 24 Hr 96.9 F-98.5 F 82-95 24-30 103-132/68-94 97-100 GENERAL: The patient is awake, trached, tracks eyes to motion but not able to follow commands. NECK: Tracheostomy in place, no secretions visible LUNGS: Breath sounds reduced at bases. HEART: Regular rate and rhythm, S1, S2 without murmur, rub or gallop. ABDOMEN: Soft, nontender, nondistended, wound vac in place (change 04/13) EXTREMITIES: warm, well-perfused, improved 1+ edema and b/l upper extremities still edematous. NEUROLOGICAL: tracks eyes to movement, unable to respond to noxious stimuli, SKIN: Warm, dry, no rashes or lesions noted Laboratory Results - last 24 hr 04/10/19 04/10/19 04/10/19 06:00 11:31 16:25 WBC 10.6 H RBC 3.07 L Hgb 8.6 L Hct 27.2 L MCV 88.5 MCH 28.2 MCHC 31.8 L RDW 23.1 H Plt Count 304 D MPV 8.0 Absolute Neuts (auto) 7.1 Neutrophils % 67.2 Lymphocytes % 20.3 Monocytes % 11.1 H Eosinophils % 0.7 Basophils % 0.7 Nucleated RBC % 0 Hypochromia 0 Platelet Estimate Increased Adequate Platelet Comment Slide reviewed Polychromasia 1+ Poikilocytosis 1+ Anisocytosis 1+ Microcytosis 1+ Macrocytosis 0 Tear Drop Cells 1+ Ovalocytes 1+ Stomatocytes 1+ Acanthocytes (Spur) 1+ Fragmented RBCs 1+ Sodium Potassium Chloride Carbon Dioxide Anion Gap BUN Creatinine Est GFR (CKD-EPI)AfAm Est GFR (CKD-EPI)NonAf POC Glucometer 86 Random Glucose Calcium Phosphorus Magnesium Total Bilirubin AST ALT Alkaline Phosphatase Total Protein Albumin 04/10/19 04/10/19 04/11/19 17:26 22:44 00:29 WBC RBC Hgb Hct MCV MCH MCHC RDW Plt Count MPV Absolute Neuts (auto) Neutrophils % Lymphocytes % Monocytes % Eosinophils % Basophils % Nucleated RBC % Hypochromia Platelet Estimate Platelet Comment Polychromasia Poikilocytosis Anisocytosis Microcytosis Macrocytosis Tear Drop Cells Ovalocytes Stomatocytes Acanthocytes (Spur) Fragmented RBCs Sodium Potassium Chloride Carbon Dioxide Anion Gap BUN Creatinine Est GFR (CKD-EPI)AfAm Est GFR (CKD-EPI)NonAf POC Glucometer 339 66 130 Random Glucose Calcium Phosphorus Magnesium Total Bilirubin AST ALT Alkaline Phosphatase Total Protein Albumin 04/11/19 04/11/19 04/11/19 05:39 05:50 05:50 WBC 9.3 RBC 2.94 L Hgb 8.4 L Hct 25.5 L MCV 86.7 MCH 28.5 MCHC 32.9 RDW 23.4 H Plt Count 556 H D MPV 8.0 Absolute Neuts (auto) 6.9 Neutrophils % 73.6 Lymphocytes % 16.3 Monocytes % 8.6 Eosinophils % 0.8 Basophils % 0.7 Nucleated RBC % 0 Hypochromia Platelet Estimate Platelet Comment Polychromasia Poikilocytosis Anisocytosis Microcytosis Macrocytosis Tear Drop Cells Ovalocytes Stomatocytes Acanthocytes (Spur) Fragmented RBCs Sodium 139 Potassium 3.3 L Chloride 104 Carbon Dioxide 26 Anion Gap 9 BUN 10.7 Creatinine 0.4 L Est GFR (CKD-EPI)AfAm 141.75 Est GFR (CKD-EPI)NonAf 122.30 POC Glucometer 227 Random Glucose 246 H Calcium 7.9 L Phosphorus 2.3 L Magnesium 2.0 Total Bilirubin 0.2 AST 22 ALT 14 Alkaline Phosphatase 180 H Total Protein 5.4 L Albumin 1.6 L Active Medications Generic Name Dose Route Start Last Admin Trade Name Freq PRN Reason Stop Dose Admin Acetaminophen 1,000 mg 04/09/19 03:23 04/09/19 13:07 Ofirmev Injection - IVPB 1,000 mg Q6H PRN Administration FEVER Albuterol/Ipratropium 1 amp 04/08/19 18:07 Duoneb - NEB Q6H PRN SHORTNESS OF BREATH Amino Acids 30 ml 04/09/19 10:00 04/11/19 10:56 Prosource No Carb Liquid Pkt PO 30 ml DAILY [facility] Administration Aspirin 81 mg 04/09/19 14:00 04/11/19 10:55 Ecotrin - PO 81 mg DAILY [facility] Administration Atorvastatin Calcium 40 mg 04/09/19 22:00 04/10/19 22:25 Lipitor - PO 40 mg HS [facility] Administration Chlorhexidine Gluconate 1 applic 04/08/19 22:00 04/10/19 21:53 Hibiclens For Decolonization - TP 1 applic HS [facility] Administration Chlorhexidine Gluconate 15 ml 04/08/19 22:00 04/11/19 10:56 Peridex - MM 15 ml BID [facility] Administration Dextrose 4 gm 04/08/19 18:07 Glucose Tablet - PO PRN PRN HYPOGLYCEMIA Enoxaparin Sodium 70 mg 04/08/19 22:00 04/11/19 10:55 Lovenox - SQ 70 mg BID [facility] Administration Dextrose/Lactated Ringer's 1,000 mls @ 75 mls/hr 04/08/19 18:07 04/11/19 01: 00 D5-Lr - IV 75 mls/hr ASDIR [facility] Administration Meropenem 1 gm/ Dextrose 100 mls @ 200 mls/hr 04/09/19 02:00 04/11/19 10:55 IVPB 200 mls/hr Q8H-IV [facility] Administration Insulin Aspart 1 vial 04/09/19 18:00 04/11/19 05:41 Novolog Vial Sliding Scale - SQ 2 units Q6HPO [facility] Administration Protocol Insulin Detemir 6 units 04/11/19 07:00 04/11/19 06:09 Levemir Vial SQ 6 unit ACBK [facility] Administration Morphine Sulfate 2 mg 04/09/19 03:23 Morphine Sulfate IVPUSH Q4H PRN PAIN LEVEL 7 - 10 Mupirocin 1 applic 04/08/19 22:00 04/11/19 10:55 Bactroban Ointment (For Decolonization) - NS 04/13/19 21:59 1 applic BID [facility] Administration Nystatin 1 applic 04/08/19 22:00 04/11/19 10:56 Mycostatin Ointment - TP 1 applic BID [facility] Administration Ondansetron HCl 4 mg 04/08/19 18:07 Zofran Injection IVPUSH Q6H PRN NAUSEA AND/OR VOMITING Pantoprazole Sodium 40 mg 04/08/19 22:00 04/11/19 10:56 Protonix Iv IVPUSH 40 mg BID [facility] Administration ASSESSMENT/PLAN: Pt is a 48F PMH Type I IDDM, PE (on Lovenox), frequent admissions for DKA, HTN, HLD, C-Diff, CVA with left-sided weakness, recent hospitalization at [facility] September 2018, sepsis 2/2 bowel perforation s/p laparotomy who was recently in [facility] ICU. Pt well known to ICU team. #Neuro -neuro consult (Addis) appreciate recs -subacute CVA seen on head CT -antiplatelets -neurosurgery (Dr. Guajardo) no surgical intervention at this time. #Cardio: hx of transient a-fib with RVR -shelter monitor - QTc 528. -Maintain MAP > 65. currently not on pressors #Respiratory: Acute respiratory failure -s/p trach and bronchoscopy -Duonebs -vented on AC mode #GI: s/p ex lap for SBO w/ perforation -Currently with wound vac to be changed 04/13 -Surgery on board, will need PEG -on vanco po ofr c diff #Endocrine: DKA - off insulin drip - Dr. Gama- max novolog of 8 units, even if BGM>400, rpt BGM after 2 hrs and give 2-3 units if bgm >400. - D5NS when patient needs tube feeds to be held for any reason. - Levemir 6u daily #I.D.- Possible Sepsis 2/2 Abdominal/Respiratory Source -Pt s/p bowel perforation s/p laparotomy -daily lab -D/c vanco for c diff management is resolved and no longer having diarrhea. - confirm with ID if want meropenem. -ID on board #F/E/N -D5/LR @ 75cc/hr -Monitor electrolytes -NPO -attempt peripheral access #DVTppx: -Lovenox Dispo: stable for transfer to LTAC. Will speak with social work regarding transfer. Spoke with family, still in disagreement with fiance regarding end of life goals of care. Family would like a family meeting. Visit type - Emergency Visit Emergency Visit: Yes ED Registration Date: 03/09/19 Care time: The patient presented to the Emergency Department on the above date and was hospitalized for further evaluation of their emergent condition. - New Patient This patient is new to me today: No - Critical Care Critical Care patient: Yes Total Critical Care Time (in minutes): 35 Critical Care Statement: The care of this patient involved high complexity decision making to prevent further life threatening deterioration of the patient 's condition and/or to evaluate & treat vital organ system(s) failure or risk of failure. - Discharge Referral Referred to [facility] No ATTENDING PHYSICIAN STATEMENT I saw and evaluated the patient. I reviewed the resident's note and discussed the case with the resident. I agree with the resident's findings and plan as documented. SUBJECTIVE: OBJECTIVE: ASSESSMENT AND PLAN:
--- NOTE | 2019-04-11 14:20 | PN ---
Progress Note (short form) - Note Progress Note: Awake Off Tube feeding., On D5 Intubated 2 Vital Signs Period Temp Pulse Resp BP Sys/Rapp Pulse Ox Last 24 Hr 97.8 F-101.1 F 83-108 22-30 119-143/72-86 100-100 PE: Intubated, s/P tracheostomy,awake Neck: supple Lungs: CTA CVS: s1S2 Abd: Benign Neuro: intubated CMP Sodium 138 mmol/L (136-145) 04/10/19 06:00 Potassium 3.1 mmol/L (3.5-5.1) L 04/10/19 06:00 Chloride 102 mmol/L (98-107) 04/10/19 06:00 Carbon Dioxide 29 mmol/L (21-32) 04/10/19 06:00 Anion Gap 7 MMOL/L (8-16) L 04/10/19 06:00 BUN 6.8 mg/dL (7-18) L 04/10/19 06:00 Creatinine 0.3 mg/dL (0.55-1.3) L 04/10/19 06:00 Est GFR (CKD-EPI)AfAm 155.82 04/10/19 06:00 Est GFR (CKD-EPI)NonAf 134.44 04/10/19 06:00 POC Glucometer 86 UNITS (80-120) 04/10/19 11:31 Random Glucose 225 mg/dL (74-106) H 04/10/19 06:00 Hemoglobin A1c % 9.8 % (4.2-6.3) H 03/10/19 07:20 Lactic Acid 1.0 mmol/L (0.4-2.0) 04/08/19 23:30 Calcium 7.7 mg/dL (8.5-10.1) L 04/10/19 06:00 Phosphorus 2.2 mg/dL (2.5-4.9) L 04/08/19 08:30 Magnesium 1.7 mg/dL (1.8-2.4) L 04/10/19 06:00 Iron 125 ug/dL (50-175) 03/20/19 17:00 TIBC 124 ug/dL (250-450) L 03/20/19 17:00 Iron Saturation 100 % (17.5-39) H 03/20/19 17:00 Unsaturated IBC -1 ug/dL (200-275) L 03/20/19 17:00 Ferritin 220.2 ng/ml (8-388) 03/20/19 17:00 Total Bilirubin 0.3 mg/dL (0.2-1) 04/10/19 06:00 AST 19 U/L (15-37) 04/10/19 06:00 ALT 14 U/L (13-61) 04/10/19 06:00 Alkaline Phosphatase 175 U/L (45-117) H 04/10/19 06:00 Creatine Kinase 109 U/L (26-192) 03/19/19 15:40 Troponin I < 0.02 ng/ml (0.00-0.05) 04/08/19 14:15 C-Reactive Protein 43.2 MG/DL (0.00-0.3) H 03/11/19 05:10 Total Protein 5.5 g/dl (6.4-8.2) L 04/10/19 06:00 Albumin 1.8 g/dl (3.4-5.0) L 04/10/19 06:00 Prealbumin 7.0 mg/dl (20-40) L 03/19/19 05:00 Triglycerides 151 mg/dL (0-150) H 04/09/19 05:48 Cholesterol 149 mg/dL (50-200) 04/09/19 05:48 Total LDL Cholesterol 72 mg/dL (5-100) 04/09/19 05:48 HDL Cholesterol 55 mg/dL (40-60) 04/09/19 05:48 Lipase 58 U/L (73-393) L 03/09/19 17:55 Beta-Hydroxybutyrate 0.9 mg/dL (0.2-2.8) 03/22/19 05:10 Current Medications Generic Name Dose Route Start Last Admin Trade Name Freq PRN Reason Stop Dose Admin Acetaminophen 1,000 mg 04/09/19 03:23 04/09/19 13:07 Ofirmev Injection - IVPB 1,000 mg Q6H PRN Administration FEVER Albuterol/Ipratropium 1 amp 04/08/19 18:07 Duoneb - NEB Q6H PRN SHORTNESS OF BREATH Amino Acids 30 ml 04/09/19 10:00 04/10/19 09:54 Prosource No Carb Liquid Pkt PO 30 ml DAILY [facility] Administration Aspirin 81 mg 04/09/19 14:00 04/10/19 09:46 Ecotrin - PO 81 mg DAILY [facility] Administration Atorvastatin Calcium 40 mg 04/09/19 22:00 04/09/19 21:04 Lipitor - PO 40 mg HS [facility] Administration Chlorhexidine Gluconate 1 applic 04/08/19 22:00 04/09/19 21:04 Hibiclens For Decolonization - TP 1 applic HS [facility] Administration Chlorhexidine Gluconate 15 ml 04/08/19 22:00 04/10/19 09:54 Peridex - MM 15 ml BID [facility] Administration Dextrose 4 gm 04/08/19 18:07 Glucose Tablet - PO PRN PRN HYPOGLYCEMIA Enoxaparin Sodium 70 mg 04/08/19 22:00 04/10/19 09:46 Lovenox - SQ 70 mg BID [facility] Administration Dextrose/Lactated Ringer's 1,000 mls @ 75 mls/hr 04/08/19 18:07 04/09/19 21: 03 D5-Lr - IV 75 mls/hr ASDIR [facility] Administration Meropenem 1 gm/ Dextrose 100 mls @ 200 mls/hr 04/09/19 02:00 04/10/19 09:47 IVPB 200 mls/hr Q8H-IV [facility] Administration Insulin Aspart 1 vial 04/09/19 18:00 04/10/19 12:15 Novolog Vial Sliding Scale - SQ Not Given Q6HPO [facility] Protocol Morphine Sulfate 2 mg 04/09/19 03:23 Morphine Sulfate IVPUSH Q4H PRN PAIN LEVEL 7 - 10 Mupirocin 1 applic 04/08/19 22:00 04/10/19 09:46 Bactroban Ointment (For Decolonization) - NS 04/13/19 21:59 1 applic BID [facility] Administration Nystatin 1 applic 04/08/19 22:00 04/10/19 12:54 Mycostatin Ointment - TP 1 applic BID [facility] Administration Ondansetron HCl 4 mg 04/08/19 18:07 Zofran Injection IVPUSH Q6H PRN NAUSEA AND/OR VOMITING Pantoprazole Sodium 40 mg 04/08/19 22:00 04/10/19 09:54 Protonix Iv IVPUSH 40 mg BID [facility] Administration Vancomycin HCl 125 mg 04/09/19 00:00 04/10/19 12:55 Vancomycin Oral Solution PO 125 mg Q6HPO [facility] Administration AP: T1DM with acidosis: Acidosis resolved, episode of hypoglycemia S/P Tracheostomy s/p Cardiopulmonary Arrest R/o Anoxic Brain Injury Acute Hypoxic Respiratory Failure Perforated Small Bowel s/p ex-lap/RAYSHAWN/segmental SB resection Crohn's Disease Peritonitis +C diff Colitis Septic Shock/Lactic Acidosis h/o PE HTN h/o CVA Pt has type 1 DM and is sensitive to Insulin. Will limit maximum NOvolog to 8 units coverage even if BGM is >400. Repeat BGM after 2 hours and give 2 to 3 units more Novolog is necessary when BGM >400 Pt s/p Tracheostomy Iv hydration as necessary, Add D5NS whenever tube feeding is on hold for any reason One amp D50 when BGM <90 BGM Q 3 hour, Novolog coverage only every 6 hrs. Levemir 6 units daily Novolog coverage Q 6 hrs Adjust Insulin dose as necessary Replace electrolytes as necessary
[2019-04-11] MEDS ORDERED: DEXTROSE 50%-WATER - 25 GM/50 ML VIAL IVPUSH PRN ×2 (14:23→16:46)
[2019-04-11] MEDS ORDERED: ACETAMINOPHEN 1000 MG/100 ML VIAL (NON FORMULARY) IVPB PRN (16:46)
[2019-04-11] MEDS ORDERED: DEXTROSE 4 GM TAB.CHEW PO PRN (16:46)
[2019-04-11] MEDS ORDERED: ALBUTEROL SO4 2.5/IPRATROPIUM 0.5 INH SOL 3 ML VIAL.NEB. NEB PRN (16:46)
[2019-04-11] MEDS ORDERED: ONDANSETRON 4 MG/2 ML VIAL IVPUSH PRN (16:46)
[2019-04-11] MEDS ORDERED: MORPHINE SULFATE 2 MG/ML VIAL IVPUSH PRN (16:46)
[2019-04-11] MEDS ORDERED: DEXTROSE 50%-WATER - 25 GM/50 ML VIAL ONE (20:58)
[2019-04-11] MEDS ORDERED: DEXTROSE 50%-WATER - 25 GM/50 ML VIAL IVPUSH ONE (21:02)
[2019-04-11] MEDS: ENOXAPARIN NA (PORCINE) 60 MG/0.6 ML DISP.SYRIN SQ SCH (21:04)
[2019-04-11] MEDS ORDERED: CHLORHEXIDINE GLUCONATE 4% CLEANSER FOR DECOLONIZATION TP SCH (22:00)
[2019-04-11] MEDS ORDERED: ATORVASTATIN CA 40 MG TABLET (FP) PO SCH (22:00)
[2019-04-11] MEDS ORDERED: ENOXAPARIN NA (PORCINE) 80 MG/0.8 ML DISP.SYRIN SQ SCH (22:00)
[2019-04-12] MEDS: INSULIN SLIDING SCALE (NOVOLOG) 1 VIAL SQ SCH ×3 (00:21→12:31)
[2019-04-12] MEDS: DEXTROSE 5%-LACTATED RINGERS 1,000 ML IV SCH ×2 (00:52→06:34)
[2019-04-12] MEDS ORDERED: MEROPENEM 1 GM VIAL (RESTRICTED TO ID) IVPB ONE (01:10)
[2019-04-12] MEDS ORDERED: DEXTROSE 5%-WATER 100 ML IVPB ONE (01:10)
[2019-04-12] MEDS: MEROPENEM 1 GM in DEXTROSE 5%-WATER 100 ML IVPB SCH ×2 (01:14→11:47)
[2019-04-12] MEDS ORDERED: INSULIN (LEVEMIR) 100 UNITS/ML UNITS SQ SCH (07:00)
[2019-04-12 07:06] LABS: BASO % 0.8 % (0-2.0); HEMATOCRIT 26.6 % (32.4-45.2); HEMOGLOBIN 8.6 GM/dL (10.7-15.3); MCH 28.5 pg (25.7-33.7); MCHC 32.5 g/dl (32.0-36.0); MEAN CELL VOLUME 87.6 fl (80-96); MEAN PLT VOLUME 7.8 fl (7.5-11.1); MONO % 6.7 % (3.8-10.2); NEUT % 73.5 % (42.8-82.8); PLATELET COUNT 622 K/MM3 (134-434); RBC 3.03 M/mm3 (3.60-5.2); RDW 23.4 % (11.6-15.6)
[2019-04-12 07:32] LABS: ALBUMIN 1.8 g/dl (3.4-5.0); BILIRUBIN,TOTAL 0.3 mg/dL (0.2-1); BLOOD UREA NITROGEN 13.6 mg/dL (7-18); CALCIUM 7.7 mg/dL (8.5-10.1); CREATININE 0.3 mg/dL (0.55-1.3); MAGNESIUM 1.8 mg/dL (1.8-2.4); PHOSPHOROUS 2.3 mg/dL (2.5-4.9); POTASSIUM 3.4 mmol/L (3.5-5.1); TOT PROT 5.4 g/dl (6.4-8.2)
--- NOTE | 2019-04-12 07:40 | PN ---
Progress Note, Physician History of Present Illness: Patient is a 48 year old female admitted for septic shock 2/ to bowel perforation. she is s/p exp lap with resection of ilial perforation on 03/12. In the past she has had multiple admission for DKA. This hospitalization complicated with multiple episodes of respiratory failure, bacteremia, c-diff and DKA. she also had an episode of pulseless activity on 03/19/19 and was intubated after CPR performed. - Current Medication List Current Medications: Active Medications Acetaminophen (Ofirmev Injection -) 1,000 mg IVPB Q6H PRN PRN Reason: FEVER Albuterol/Ipratropium (Duoneb -) 1 amp NEB Q6H PRN PRN Reason: SHORTNESS OF BREATH Amino Acids (Prosource No Carb Liquid Pkt) 30 ml PO DAILY@0800 [facility] Aspirin (Ecotrin -) 81 mg PO DAILY [facility] Atorvastatin Calcium (Lipitor -) 40 mg PO HS [facility] Last Admin: 04/11/19 21:04 Dose: 40 mg Chlorhexidine Gluconate (Hibiclens For Decolonization -) 1 applic TP HS [facility] Last Admin: 04/11/19 21:23 Dose: 1 applic Chlorhexidine Gluconate (Peridex -) 15 ml MM BID [facility] [place] Last Admin: 04/11/19 21:04 Dose: 15 ml Dextrose (Glucose Tablet -) 4 gm PO PRN PRN PRN Reason: HYPOGLYCEMIA Enoxaparin Sodium (Lovenox -) 60 mg SQ BID [facility] [place] Last Admin: 04/11/19 21:04 Dose: 60 mg Dextrose/Lactated Ringer's (D5-Lr -) 1,000 mls @ 75 mls/hr IV ASDIR [facility] [place] Last Admin: 04/12/19 06:34 Dose: Not Given Meropenem 1 gm/ Dextrose 100 mls @ 200 mls/hr IVPB Q8H-IV [facility] Last Admin: 04/12/19 01:14 Dose: 200 mls/hr Insulin Aspart (Novolog Vial Sliding Scale -) 1 vial SQ Q6HPO [facility]; Protocol Last Admin: 04/12/19 06:34 Dose: 7 units Insulin Detemir (Levemir Vial) 6 units SQ ACBK [facility] Last Admin: 04/12/19 06:34 Dose: 6 units Morphine Sulfate (Morphine Sulfate) 2 mg IVPUSH Q4H PRN PRN Reason: PAIN LEVEL 7 - 10 Mupirocin (Bactroban Ointment (For Decolonization) -) 1 applic NS BID [facility] Stop: 04/13/19 21:59 Last Admin: 04/11/19 21:23 Dose: 1 applic Nystatin (Mycostatin Ointment -) 1 applic TP BID [facility] Last Admin: 04/11/19 21:24 Dose: 1 applic Ondansetron HCl (Zofran Injection) 4 mg IVPUSH Q6H PRN PRN Reason: NAUSEA AND/OR VOMITING Pantoprazole Sodium (Protonix Iv) 40 mg IVPUSH BID [facility] Last Admin: 04/11/19 21:04 Dose: 40 mg - Objective Vital Signs: Vital Signs Temperature 98.2 F 04/12/19 06:00 Pulse Rate 96 H 04/12/19 06:00 Respiratory Rate 24 H 04/12/19 06:25 Blood Pressure 124/69 04/12/19 06:00 O2 Sat by Pulse Oximetry (%) 100 04/11/19 10:30 Constitutional: Yes: Mild Distress, Thin Eyes: Yes: WNL, Conjunctiva Clear HENT: Yes: WNL, Atraumatic, Normocephalic, Other (left prupil dilated) Neck: Yes: WNL, Supple, Trachea Midline Cardiovascular: Yes: Tachycardia (HR 110s) Respiratory: Yes: Diminished, Mechanically Ventilated, Rhonchi Labs: CBC, BMP 04/12/19 06:00 04/12/19 06:00 INR, PTT INR 0.95 (0.83-1.09) 03/26/19 06:00 Fibrinogen 359.0 mg/dL (238-498) 03/19/19 23:15 - ....Imaging Cat Scan: Report Reviewed (04/09/19. head ct recent acute/subacute infarct - alfa sub. cortex. non hemorrhagic) Problem List - Problems (1) HLD (hyperlipidemia) Code(s): E78.5 - HYPERLIPIDEMIA, UNSPECIFIED (2) Left-sided weakness Code(s): R53.1 - WEAKNESS (3) History of open heart surgery Code(s): Z98.890 - OTHER SPECIFIED POSTPROCEDURAL STATES (4) Acute Crohn's disease Code(s): K50.90 - CROHN'S DISEASE, UNSPECIFIED, WITHOUT COMPLICATIONS (5) Gastroparesis Code(s): K31.84 - GASTROPARESIS (6) Abdominal pain Code(s): R10.9 - UNSPECIFIED ABDOMINAL PAIN Qualifiers: Abdominal location: generalized Qualified Code(s): R10.84 - Generalized abdominal pain (7) Small bowel obstruction Code(s): K56.609 - UNSP INTESTNL OBST, UNSP TO PARTIAL VERSUS COMPLETE OBST (8) Cerebrovascular accident (CVA) Code(s): I63.9 - CEREBRAL INFARCTION, UNSPECIFIED Qualifiers: CVA mechanism: unspecified Qualified Code(s): I63.9 - Cerebral infarction, unspecified (9) Chronic pain Code(s): G89.29 - OTHER CHRONIC PAIN Qualifiers: Chronic pain type: chronic pain syndrome Qualified Code(s): G89.4 - Chronic pain syndrome (10) Prophylactic measure Code(s): Z29.9 - ENCOUNTER FOR PROPHYLACTIC MEASURES, UNSPECIFIED (11) Diabetes Code(s): E11.9 - TYPE 2 DIABETES MELLITUS WITHOUT COMPLICATIONS (12) Perforated abdominal viscus Code(s): [id number] - (13) Hypoxia Code(s): R09.02 - HYPOXEMIA (14) C. difficile diarrhea Code(s): A04.72 - ENTEROCOLITIS D/T CLOSTRIDIUM DIFFICILE, NOT SPCF RECUR (15) ESBL (extended spectrum beta-lactamase) producing bacteria infection Code(s): A49.9 - BACTERIAL INFECTION, UNSPECIFIED; Z16.12 - EXTENDED SPECTRUM BETA LACTAMASE (ESBL) RESISTANCE (16) Clostridium difficile diarrhea Code(s): A04.72 - ENTEROCOLITIS D/T CLOSTRIDIUM DIFFICILE, NOT SPCF RECUR (17) Admitted to intensive care unit Code(s): Z78.9 - OTHER SPECIFIED HEALTH STATUS
--- NOTE | 2019-04-12 07:47 | PN ---
Progress Note, Physician Chief Complaint: Abdominal Pain History of Present Illness: 48yo female PMH HTN, CVA (left sided hemiparesis), HLD, IDDM, DKA resulting in multiple admissions, dysphagia, gastroparesis, esophageal stricture (EGD 02/14), c/diff (10/2018), SBO September 2018 (s/p SB resection at [facility] as per pt report) presented to [place] ED on the afternoon of 12/21 with complaints of N/V/D/ abd pain intermittently for years. She is clinically improved. Has not returened to her neurologic baseline. - Current Medication List Current Medications: Active Medications Acetaminophen (Ofirmev Injection -) 1,000 mg IVPB Q6H PRN PRN Reason: FEVER Albuterol/Ipratropium (Duoneb -) 1 amp NEB Q6H PRN PRN Reason: SHORTNESS OF BREATH Amino Acids (Prosource No Carb Liquid Pkt) 30 ml PO DAILY@0800 [facility] Aspirin (Ecotrin -) 81 mg PO DAILY [facility] Atorvastatin Calcium (Lipitor -) 40 mg PO HS [facility] Last Admin: 04/11/19 21:04 Dose: 40 mg Chlorhexidine Gluconate (Hibiclens For Decolonization -) 1 applic TP HS [facility] Last Admin: 04/11/19 21:23 Dose: 1 applic Chlorhexidine Gluconate (Peridex -) 15 ml MM BID [facility] Last Admin: 04/11/19 21:04 Dose: 15 ml Dextrose (Glucose Tablet -) 4 gm PO PRN PRN PRN Reason: HYPOGLYCEMIA Enoxaparin Sodium (Lovenox -) 60 mg SQ BID [facility] Last Admin: 04/11/19 21:04 Dose: 60 mg Dextrose/Lactated Ringer's (D5-Lr -) 1,000 mls @ 75 mls/hr IV ASDIR [facility] Last Admin: 04/12/19 06:34 Dose: Not Given Meropenem 1 gm/ Dextrose 100 mls @ 200 mls/hr IVPB Q8H-IV [facility] Last Admin: 04/12/19 01:14 Dose: 200 mls/hr Insulin Aspart (Novolog Vial Sliding Scale -) 1 vial SQ Q6HPO [facility]; Protocol Last Admin: 04/12/19 06:34 Dose: 7 units Insulin Detemir (Levemir Vial) 6 units SQ ACBK [facility] Last Admin: 04/12/19 06:34 Dose: 6 units Morphine Sulfate (Morphine Sulfate) 2 mg IVPUSH Q4H PRN PRN Reason: PAIN LEVEL 7 - 10 Mupirocin (Bactroban Ointment (For Decolonization) -) 1 applic NS BID [facility] Stop: 04/13/19 21:59 Last Admin: 04/11/19 21:23 Dose: 1 applic Nystatin (Mycostatin Ointment -) 1 applic TP BID [facility] Last Admin: 04/11/19 21:24 Dose: 1 applic Ondansetron HCl (Zofran Injection) 4 mg IVPUSH Q6H PRN PRN Reason: NAUSEA AND/OR VOMITING Pantoprazole Sodium (Protonix Iv) 40 mg IVPUSH BID [facility] Last Admin: 04/11/19 21:04 Dose: 40 mg - Objective Vital Signs: Vital Signs Temperature 98.2 F 04/12/19 06:00 Pulse Rate 96 H 04/12/19 06:00 Respiratory Rate 24 H 04/12/19 06:25 Blood Pressure 124/69 04/12/19 06:00 O2 Sat by Pulse Oximetry (%) 100 04/11/19 10:30 Vital Signs Period Temp Pulse Resp BP Sys/Rapp Pulse Ox Last 24 Hr 96 F-99.1 F 81-97 20-31 109-132/62-80 100 Intake & Output 04/11/19 04/11/19 04/12/19 15:59 23:59 07:59 Intake Total 2680 2310 Output Total 400 300 700 Balance -400 2380 1610 Weight 122 lb 4.8 oz Intake: IV 1200 900 D5-Lr - 1,000 ml @ 75 mls 1200 /hr IV ASDIR [facility] Rx#: [id number] D5-Lr - 1,000 ml @ 75 mls 900 /hr IV ASDIR [facility] Rx#: [id number] IVPB 200 100 Tube Feeding 800 600 Packed Cells 350 Tube Irrigant 480 360 Output: Urine 400 300 700 Lott 400 300 700 Other: Voiding Method Indwelling Catheter Indwelling Catheter Bowel Movement Yes Yes Yes # Bowel Movements 1 2 Weight Measurement Method Built in [facility] Constitutional: Yes: Well Nourished, No Distress, Calm Eyes: Yes: Conjunctiva Clear, EOM Intact HENT: Yes: Atraumatic, Normocephalic Neck: Yes: Supple, Trachea Midline Cardiovascular: Yes: Regular Rate and Rhythm, S1, S2 Respiratory: Yes: Regular, Diminished, Mechanically Ventilated Gastrointestinal: Yes: Normal Bowel Sounds, Soft, Other (VAC) Genitourinary: Yes: Lott Present. No: CVA Tenderness - Left, CVA Tenderness - Right Extremities: No: Cool, Cyanosis Edema: Yes Edema: LUE: 1+, RUE: 1+, LLE: 1+, RLE: 1+ Peripheral Pulses WNL: Yes Peripheral Pulses: Left Radial: 2+, Right Radial: 2+, Left Doralis Pedis: 2+, Right Dorsalis Pedis: 2+, Left Femoral: 2+, Right Femoral: 2+ Wound/Incision: Yes: Clean/Dry, Well Approximated Neurological: Yes: Alert, Oriented Psychiatric: Yes: Alert, Oriented Labs: CBC, BMP 04/12/19 06:00 04/12/19 06:00 INR, PTT INR 0.95 (0.83-1.09) 03/26/19 06:00 Fibrinogen 359.0 mg/dL (238-498) 03/19/19 23:15 Microbiology 04/08/19 16:25 Blood - Peripheral Venous Blood Culture - Preliminary NO GROWTH OBTAINED AFTER 72 HOURS, INCUBATION TO CONTINUE FOR 2 DAYS. 04/08/19 16:25 Blood - Peripheral Venous Blood Culture - Preliminary NO GROWTH OBTAINED AFTER 72 HOURS, INCUBATION TO CONTINUE FOR 2 DAYS. 04/08/19 22:24 Urine - Urine - Catheterized Urine Culture - Final NO GROWTH OBTAINED 04/02/19 19:20 Blood - Peripheral Venous Blood Culture - Final NO GROWTH AFTER 5 DAYS INCUBATION 04/02/19 19:30 Blood - Peripheral Venous Blood Culture - Final NO GROWTH AFTER 5 DAYS INCUBATION 04/02/19 18:20 Sputum - Endotrachea Suction/Ventilator Gram Stain - Final 04/02/19 18:20 Sputum - Endotrachea Suction/Ventilator Sputum Culture - Final Klebsiella Pneumoniae - Esbl 04/03/19 05:00 Urine - Urine Lott Urine Culture - Final NO GROWTH OBTAINED 03/31/19 00:00 Sputum - Endotrachea Suction/Ventilator Gram Stain - Final 03/31/19 00:00 Sputum - Endotrachea Suction/Ventilator Sputum Culture - Final Yeast Like Organism 03/28/19 10:40 Blood - Peripheral Venous Blood Culture - Final NO GROWTH AFTER 5 DAYS INCUBATION 03/28/19 11:03 Blood - Peripheral Venous Blood Culture - Final NO GROWTH AFTER 5 DAYS INCUBATION 03/26/19 08:30 Blood - Central Line Blood Culture - Final NO GROWTH AFTER 5 DAYS INCUBATION 03/25/19 18:30 Blood - Peripheral Venous Blood Culture - Final NO GROWTH AFTER 5 DAYS INCUBATION 03/25/19 18:30 Blood - Peripheral Venous Blood Culture - Final NO GROWTH AFTER 5 DAYS INCUBATION 03/25/19 17:00 Blood - Central Line Blood Culture - Final NO GROWTH AFTER 5 DAYS INCUBATION 03/21/19 18:15 Blood - Central Line Blood Culture - Final NO GROWTH AFTER 5 DAYS INCUBATION 03/21/19 13:25 Blood - Central Line Blood Culture - Final NO GROWTH AFTER 5 DAYS INCUBATION 03/23/19 19:00 Sputum - Endotrachea Suction/Ventilator Gram Stain - Final 03/23/19 19:00 Sputum - Endotrachea Suction/Ventilator Sputum Culture - Final Yeast Like Organism 03/23/19 19:00 Urine - Urine Lott Urine Culture - Final NO GROWTH OBTAINED 03/12/19 19:30 Peritoneal Fluid Gram Stain - Final 03/12/19 19:30 Peritoneal Fluid Body Fluid Culture - Final Klebsiella Pneumoniae - Esbl Enterococcus Faecalis 03/12/19 19:30 Peritoneal Fluid Anaerobic Culture - Final NO ANAEROBES WERE ISOLATED 03/14/19 23:00 Stool Clostridioides difficile Antigen - Final 03/14/19 23:00 Stool Clostridioides difficile Toxin Assay - Final 03/10/19 08:30 Blood - Arterial Blood Culture - Final NO GROWTH AFTER 5 DAYS INCUBATION 03/10/19 08:00 Blood - Arterial Blood Culture - Final NO GROWTH AFTER 5 DAYS INCUBATION 03/09/19 17:00 Urine - Urine Clean Catch Urine Culture - Final Vr Ec Faecium Problem List - Problems (1) Small bowel obstruction Assessment/Plan: 48yo female with MMP including SBO, chronic constipation, Gastroparesis and crohns disease presenting with Abdominal pain. She has several possible explanations for this pain. POD#32 Exp Lap and Segmental resection of small intestinal perforation. Poor saturation and hospital acquired infections ESBL and Cdiff. respiratory status is improving. Monitored Setting ICU management VAC dressing changed, due 04/13 Antibiotics per ID Transfuse as need crohns management optimize nutrition will follow This patient is critically ill. Time spent reviewing chart, examining patient, talking with providers and/or family and documentation is 35 minutes. Code(s): K56.609 - UNSP INTESTNL OBST, UNSP TO PARTIAL VERSUS COMPLETE OBST (2) Abdominal pain Code(s): R10.9 - UNSPECIFIED ABDOMINAL PAIN Qualifiers: Abdominal location: generalized Qualified Code(s): R10.84 - Generalized abdominal pain (3) Crohn's disease Code(s): K50.90 - CROHN'S DISEASE, UNSPECIFIED, WITHOUT COMPLICATIONS Qualifiers: Gastrointestinal tract location: small intestine Digestive disease complication type: with rectal bleeding Qualified Code(s): K50.011 - Crohn's disease of small intestine with rectal bleeding (4) DKA (diabetic ketoacidoses) Code(s): E13.10 - OTH DIABETES MELLITUS WITH KETOACIDOSIS WITHOUT COMA Qualifiers: Diabetes mellitus type: type 1 Diabetes mellitus complication detail: without coma Qualified Code(s): E10.10 - Type 1 diabetes mellitus with ketoacidosis without coma (5) Nausea & vomiting Code(s): R11.2 - NAUSEA WITH VOMITING, UNSPECIFIED Qualifiers: Vomiting type: cyclical vomiting Vomiting Intractability: intractable (6) Cerebrovascular accident (CVA) Code(s): I63.9 - CEREBRAL INFARCTION, UNSPECIFIED Qualifiers: CVA mechanism: unspecified Qualified Code(s): I63.9 - Cerebral infarction, unspecified
[2019-04-12] MEDS ORDERED: AMINO ACIDS/PROTEIN HYDROLYS 30 ML LIQUID.PKT PO SCH (08:00)
--- NOTE | 2019-04-12 08:21 | PN ---
Progress Note (short form) - Note Progress Note: NEUROSURGERY Tmax 99.1, VSS PE trach'd Purposeful movements B UE/LE, does not fully follow commands CN- b pupils 6 mm reactive; face symmetric; Motor- L UE and LE, R LE 4-; R UE 3 ; Sensation- difficult to assess fully; DTR- 1+, b toes upgoing WBC 8.6; glucose fluctuating low 100's to high 300's L carotid doppler- no hemodynamically significant L CCA/ICA stenosis CT head- acute-subacute L MCA (putamen, insular, centrum semiovale and parietal cortical-subcortical infarct not present on prior -2018 CT. Chronic R MCA infarct. Minimal L cortical mass effect. No midline shift. No HCP. Pt with multiple medical issues (cardiac, prior stroke, DM, small bowel perforation/peritonitis and possible hypotensive/hypoxemic episode) No neurosurgical intervention indicated nor recommended DM management Though isolated territorial stroke tends to recover with time, this patient has multiple associated medical co-morbidities, making another potentially catastrophic event (DVT, PE, stroke, LA. pneumonia and other infections) much more likely
[2019-04-12] MEDS ORDERED: POTASSIUM PHOSPHATE 15 MM in SODIUM CHLORIDE 250 ML IVPB ONE (08:28)
[2019-04-12] MEDS ORDERED: KCL 10 MEQ IVPB 10 MEQ/100 ML INFUS.BAG IVPB SCH (08:30)
--- NOTE | 2019-04-12 08:39 | PN ---
Progress Note, Physician History of Present Illness: Patient is a 48 year old female admitted for septic shock 2/ to bowel perforation. she is s/p exp lap with resection of ilial perforation on 03/12. In the past she has had multiple admission for DKA. This hospitalization complicated with multiple episodes of respiratory failure, bacteremia, c-diff and DKA. she also had an episode of pulseless activity on 03/19/19 and was intubated after CPR performed. - Current Medication List Current Medications: Active Medications Acetaminophen (Ofirmev Injection -) 1,000 mg IVPB Q6H PRN PRN Reason: FEVER Albuterol/Ipratropium (Duoneb -) 1 amp NEB Q6H PRN PRN Reason: SHORTNESS OF BREATH Amino Acids (Prosource No Carb Liquid Pkt) 30 ml PO DAILY@0800 [facility] Aspirin (Ecotrin -) 81 mg PO DAILY [facility] Atorvastatin Calcium (Lipitor -) 40 mg PO HS [facility] Last Admin: 04/11/19 21:04 Dose: 40 mg Chlorhexidine Gluconate (Hibiclens For Decolonization -) 1 applic TP HS [facility] Last Admin: 04/11/19 21:23 Dose: 1 applic Chlorhexidine Gluconate (Peridex -) 15 ml MM BID [facility] Last Admin: 04/11/19 21:04 Dose: 15 ml Dextrose (Glucose Tablet -) 4 gm PO PRN PRN PRN Reason: HYPOGLYCEMIA Enoxaparin Sodium (Lovenox -) 60 mg SQ BID [facility] Last Admin: 04/11/19 21:04 Dose: 60 mg Dextrose/Lactated Ringer's (D5-Lr -) 1,000 mls @ 75 mls/hr IV ASDIR [facility] Last Admin: 04/12/19 06:34 Dose: Not Given Meropenem 1 gm/ Dextrose 100 mls @ 200 mls/hr IVPB Q8H-IV [facility] Last Admin: 04/12/19 01:14 Dose: 200 mls/hr Potassium Chloride (Potassium Chloride 10 Meq Premix Ivpb -) 10 meq in 100 mls @ 100 mls/hr IVPB Q60M [facility] Stop: 04/12/19 11:29 Potassium Phosphate 15 mm/ (Sodium Chloride) 255 mls @ 62.5 mls/hr IVPB ONCE ONE Stop: 04/12/19 12:32 Insulin Aspart (Novolog Vial Sliding Scale -) 1 vial SQ Q6HPO [facility]; Protocol Last Admin: 04/12/19 06:34 Dose: 7 units Insulin Detemir (Levemir Vial) 6 units SQ ACBK [facility] Last Admin: 04/12/19 06:34 Dose: 6 units Morphine Sulfate (Morphine Sulfate) 2 mg IVPUSH Q4H PRN PRN Reason: PAIN LEVEL 7 - 10 Mupirocin (Bactroban Ointment (For Decolonization) -) 1 applic NS BID [facility] Stop: 04/13/19 21:59 Last Admin: 04/11/19 21:23 Dose: 1 applic Nystatin (Mycostatin Ointment -) 1 applic TP BID [facility] Last Admin: 04/11/19 21:24 Dose: 1 applic Ondansetron HCl (Zofran Injection) 4 mg IVPUSH Q6H PRN PRN Reason: NAUSEA AND/OR VOMITING Pantoprazole Sodium (Protonix Iv) 40 mg IVPUSH BID [facility] Last Admin: 04/11/19 21:04 Dose: 40 mg - Objective Vital Signs: Vital Signs Temperature 98.2 F 04/12/19 06:00 Pulse Rate 93 H 04/12/19 08:30 Respiratory Rate 20 04/12/19 08:31 Blood Pressure 124/69 04/12/19 06:00 O2 Sat by Pulse Oximetry (%) 99 04/12/19 08:30 Labs: CBC, BMP 04/12/19 06:00 04/12/19 06:00 INR, PTT INR 0.95 (0.83-1.09) 03/26/19 06:00 Fibrinogen 359.0 mg/dL (238-498) 03/19/19 23:15 Problem List - Problems (1) HLD (hyperlipidemia) Code(s): E78.5 - HYPERLIPIDEMIA, UNSPECIFIED (2) Left-sided weakness Code(s): R53.1 - WEAKNESS (3) History of open heart surgery Code(s): Z98.890 - OTHER SPECIFIED POSTPROCEDURAL STATES (4) Acute Crohn's disease Code(s): K50.90 - CROHN'S DISEASE, UNSPECIFIED, WITHOUT COMPLICATIONS (5) Gastroparesis Code(s): K31.84 - GASTROPARESIS (6) Abdominal pain Code(s): R10.9 - UNSPECIFIED ABDOMINAL PAIN Qualifiers: Abdominal location: generalized Qualified Code(s): R10.84 - Generalized abdominal pain (7) Small bowel obstruction Code(s): K56.609 - UNSP INTESTNL OBST, UNSP TO PARTIAL VERSUS COMPLETE OBST (8) Cerebrovascular accident (CVA) Code(s): I63.9 - CEREBRAL INFARCTION, UNSPECIFIED Qualifiers: CVA mechanism: unspecified Qualified Code(s): I63.9 - Cerebral infarction, unspecified (9) Chronic pain Code(s): G89.29 - OTHER CHRONIC PAIN Qualifiers: Chronic pain type: chronic pain syndrome Qualified Code(s): G89.4 - Chronic pain syndrome (10) Prophylactic measure Code(s): Z29.9 - ENCOUNTER FOR PROPHYLACTIC MEASURES, UNSPECIFIED (11) Diabetes Code(s): E11.9 - TYPE 2 DIABETES MELLITUS WITHOUT COMPLICATIONS (12) Perforated abdominal viscus Code(s): BAW0777 - (13) Hypoxia Code(s): R09.02 - HYPOXEMIA (14) C. difficile diarrhea Code(s): A04.72 - ENTEROCOLITIS D/T CLOSTRIDIUM DIFFICILE, NOT SPCF RECUR (15) ESBL (extended spectrum beta-lactamase) producing bacteria infection Code(s): A49.9 - BACTERIAL INFECTION, UNSPECIFIED; Z16.12 - EXTENDED SPECTRUM BETA LACTAMASE (ESBL) RESISTANCE (16) Clostridium difficile diarrhea Code(s): A04.72 - ENTEROCOLITIS D/T CLOSTRIDIUM DIFFICILE, NOT SPCF RECUR (17) Admitted to intensive care unit Code(s): Z78.9 - OTHER SPECIFIED HEALTH STATUS
--- NOTE | 2019-04-12 08:56 | PN ---
Progress Note (short form) - Note Progress Note: Neurology CHIEF COMPLAINT: AMS PCP: Dr. Chaudhary HISTORY OF PRESENT ILLNESS: 48 year-old female with a PMH significant for Type I IDDM, frequent admissions for DKA, HTN, HLD, CVA with left-sided weakness. Recent hospitalization at [facility] [place] September 2018 for SBO and seen prior to that in Jul 2018 here by me. She was admitted for abdominal pain. Now s/p small bowel resection for likely Crohn's related perforation, with multiple underlying medical problems, critically ill, s/p tracheostomy still ventilated, with recurrent C. diff, pneumonia and midline wounds with fascial dehiscence. Per notes, she had been transferred to floor yesterday, but is back in ICU today after rapid response for tachycardia, tachypnea, diaphoresis. She was getting tube feeds tube was out. Being possibly managed with PEG. I was consulted for evaluation of possible anoxic brain injury. On initial evaluation the patient was awake, alert, appears=ed fatigued and generally ill. Did have brainstem reflexes and some higher order functioning with ability to move extremities though not participating in confrontation testing and with history of L sided weakness 2/2 CVA. Did not have recent imaging for brain, ordered CT head which demonstrated subacute right -sided internal capsule and periventricular infarct Recommended 81 mg of aspirin for CVA secondary prevention if no contraindication such as but not limtied to bleeding or planned procedure. Also recommended checking lipid profile and LDL was 72. Carotid doppler ompleted and reviewed and unable to visualize right carotid, consider vascular evaluation. Spoke in detail with patient's mother on Friday and explained current clinical situation as well as new infarct, family is considering long-term management and placement. They also inquired about prognosis and I did inform them that multiple medical issues ongoing and cannot be predicted but neurologically she has demonstrated improvement in mental status as compared to 1 week prior and during time of cardiac resuscitation. This morning, patient is awake alert and tracking examiner through the room but not following commands. Discussed with the ICU team and recommended increase interaction and stimulation. Active Medications Acetaminophen (Ofirmev Injection -) 1,000 mg IVPB Q6H PRN PRN Reason: FEVER Albuterol/Ipratropium (Duoneb -) 1 amp NEB Q6H PRN PRN Reason: SHORTNESS OF BREATH Amino Acids (Prosource No Carb Liquid Pkt) 30 ml PO DAILY@0800 [facility] Aspirin (Ecotrin -) 81 mg PO DAILY [facility] Atorvastatin Calcium (Lipitor -) 40 mg PO HS [facility] Last Admin: 04/11/19 21:04 Dose: 40 mg Chlorhexidine Gluconate (Hibiclens For Decolonization -) 1 applic TP HS [facility] Last Admin: 04/11/19 21:23 Dose: 1 applic Chlorhexidine Gluconate (Peridex -) 15 ml MM BID [facility] Last Admin: 04/11/19 21:04 Dose: 15 ml Dextrose (Glucose Tablet -) 4 gm PO PRN PRN PRN Reason: HYPOGLYCEMIA Enoxaparin Sodium (Lovenox -) 60 mg SQ BID [facility] Last Admin: 04/11/19 21:04 Dose: 60 mg Dextrose/Lactated Ringer's (D5-Lr -) 1,000 mls @ 75 mls/hr IV ASDIR [facility] Last Admin: 04/12/19 06:34 Dose: Not Given Meropenem 1 gm/ Dextrose 100 mls @ 200 mls/hr IVPB Q8H-IV [facility] Last Admin: 04/12/19 01:14 Dose: 200 mls/hr Potassium Chloride (Potassium Chloride 10 Meq Premix Ivpb -) 10 meq in 100 mls @ 100 mls/hr IVPB Q60M [facility] Stop: 04/12/19 11:29 Potassium Phosphate 15 mm/ (Sodium Chloride) 255 mls @ 63.75 mls/hr IVPB ONCE ONE Stop: 04/12/19 12:27 Insulin Aspart (Novolog Vial Sliding Scale -) 1 vial SQ Q6HPO [facility]; Protocol Last Admin: 04/12/19 06:34 Dose: 7 units Insulin Detemir (Levemir Vial) 6 units SQ ACBK [facility] Last Admin: 04/12/19 06:34 Dose: 6 units Morphine Sulfate (Morphine Sulfate) 2 mg IVPUSH Q4H PRN PRN Reason: PAIN LEVEL 7 - 10 Mupirocin (Bactroban Ointment (For Decolonization) -) 1 applic NS BID [facility] Stop: 04/13/19 21:59 Last Admin: 04/11/19 21:23 Dose: 1 applic Nystatin (Mycostatin Ointment -) 1 applic TP BID [facility] Last Admin: 04/11/19 21:24 Dose: 1 applic Ondansetron HCl (Zofran Injection) 4 mg IVPUSH Q6H PRN PRN Reason: NAUSEA AND/OR VOMITING Pantoprazole Sodium (Protonix Iv) 40 mg IVPUSH BID [facility] Last Admin: 04/11/19 21:04 Dose: 40 mg PHYSICAL EXAMINATION Vital Signs Period Temp Pulse Resp BP Sys/Rapp Pulse Ox Last 24 Hr 96 F-99.1 F 81-100 20-31 109-139/62-82 99-100 GENERAL: Awake, alert, not oriented HEAD: Normal with no signs of trauma. EYES: Pupils equal, round and reactive to light, extraocular movements intact, sclera anicteric, conjunctiva clear. No lid lag. LUNGS: Breath sounds equal, clear to auscultation bilaterally. No wheezes, and no crackles. No accessory muscle use. HEART: Regular rate and rhythm, normal S1 and S2, mediastinal scar ABDOMEN: Soft, nontender, diffusely tender, hypoactive bowel sounds; well- healed abdominal scars MUSCULOSKELETAL: Normal range of motion at all joints. No bony deformities or tenderness. UPPER EXTREMITIES: 2+ pulses, warm, well-perfused. No cyanosis. No clubbing. No peripheral edema. LOWER EXTREMITIES: 2+ pulses, warm, well-perfused. No calf tenderness. No peripheral edema. NEUROLOGICAL: Awake, alert, blinks to threat, moves extremities grossly, sensory intact, not participating to confrontation testing CBCD WBC 10.0 K/mm3 (4.0-10.0) 04/12/19 06:00 RBC 3.03 M/mm3 (3.60-5.2) L 04/12/19 06:00 Hgb 8.6 GM/dL (10.7-15.3) L 04/12/19 06:00 Hct 26.6 % (32.4-45.2) L 04/12/19 06:00 MCV 87.6 fl (80-96) 04/12/19 06:00 MCHC 32.5 g/dl (32.0-36.0) 04/12/19 06:00 RDW 23.4 % (11.6-15.6) H 04/12/19 06:00 Plt Count 622 K/MM3 (134-434) H 04/12/19 06:00 MPV 7.8 fl (7.5-11.1) 04/12/19 06:00 CMP Sodium 138 mmol/L (136-145) 04/12/19 06:00 Potassium 3.4 mmol/L (3.5-5.1) L 04/12/19 06:00 Chloride 103 mmol/L (98-107) 04/12/19 06:00 Carbon Dioxide 28 mmol/L (21-32) 04/12/19 06:00 Anion Gap 8 MMOL/L (8-16) 04/12/19 06:00 BUN 13.6 mg/dL (7-18) 04/12/19 06:00 Creatinine 0.3 mg/dL (0.55-1.3) L 04/12/19 06:00 Random Glucose 379 mg/dL (74-106) H 04/12/19 06:00 Calcium 7.7 mg/dL (8.5-10.1) L 04/12/19 06:00 Total Bilirubin 0.3 mg/dL (0.2-1) 04/12/19 06:00 AST 21 U/L (15-37) 04/12/19 06:00 ALT 14 U/L (13-61) 04/12/19 06:00 Alkaline Phosphatase 188 U/L (45-117) H 04/12/19 06:00 Total Protein 5.4 g/dl (6.4-8.2) L 04/12/19 06:00 Albumin 1.8 g/dl (3.4-5.0) L 04/12/19 06:00 CARDIAC ENZYMES Creatine Kinase 109 U/L (26-192) 03/19/19 15:40 Troponin I < 0.02 ng/ml (0.00-0.05) 04/08/19 14:15 ASSESSMENT/PLAN: 48 year-old female with a PMH significant for Type I IDDM, frequent admissions for DKA, HTN, HLD, CVA with left-sided weakness. Recent hospitalization at [facility] [place] September 2018 for SBO and seen prior to that in Jul 2018 here by me. She was admitted for abdominal pain. Now s/p small bowel resection for likely Crohn's related perforation, with multiple underlying medical problems, critically ill, s/p tracheostomy still ventilated, with recurrent C. diff, pneumonia and midline wounds with fascial dehiscence. Per notes, she had been transferred to floor yesterday, but is back in ICU today after rapid response for tachycardia, tachypnea, diaphoresis. She was getting tube feeds tube was out. Being possibly managed with PEG. I was consulted for evaluation of possible anoxic brain injury. On initial evaluation the patient was awake, alert, appears=ed fatigued and generally ill. Did have brainstem reflexes and some higher order functioning with ability to move extremities though not participating in confrontation testing and with history of L sided weakness 2/2 CVA. Did not have recent imaging for brain, ordered CT head which demonstrated subacute right -sided internal capsule and periventricular infarct Recommended 81 mg of aspirin for CVA secondary prevention if no contraindication such as but not limtied to bleeding or planned procedure. Also recommended checking lipid profile and LDL was 72, remains on statin 40. Carotid doppler ompleted and reviewed and unable to visualize right carotid, consider vascular evaluation. Spoke in detail with patient's mother on Friday and explained current clinical situation as well as new infarct, family is considering long-term management and placement. They also inquired about prognosis and I did inform them that multiple medical issues ongoing and cannot be predicted but neurologically she has demonstrated improvement in mental status as compared to 1 week prior and during time of cardiac resuscitation. This morning, patient is awake alert and tracking examiner through the room but not following commands. Discussed with the ICU team and recommended increase interaction and stimulation. Monitor DM, has h/o elevated glucose and hyperglycemia that was poorly controlled. Monitor blood pressure, maintain normotensive range. On IV Meropenum, continue infectious mgmt. Critical care time 35 mins.
[2019-04-12] MEDS ORDERED: PT OWN MED DRAWER 7, Y5N ONE (09:29)
[2019-04-12] MEDS: ENOXAPARIN NA (PORCINE) 60 MG/0.6 ML DISP.SYRIN SQ SCH (09:35)
[2019-04-12] MEDS: PANTOPRAZOLE SODIUM 40 MG VIAL IVPUSH SCH (09:37)
[2019-04-12] MEDS ORDERED: POTASSIUM CHLORIDE ORAL LIQUID 20 MEQ/15 ML NGT ONE (09:38)
[2019-04-12] MEDS: CHLORHEXIDINE GLUCONATE 0.12% 15ML CUP MM SCH (09:53)
[2019-04-12] MEDS: MUPIROCIN 2% TOPICAL OINTMENT FOR DECOLONIZATION NS SCH (09:53)
[2019-04-12] MEDS ORDERED: ASPIRIN COATED 81 MG TABLET.EC PO SCH (10:00)
[2019-04-12] MEDS ORDERED: INSULIN (NOVOLOG) ASPART 100 UNITS/ML 10ML VIAL ONE (12:38)
[2019-04-12] MEDS: NYSTATIN 100000 UNIT/GM TOPICAL OINTMENT 15 GM TUBE TP SCH (12:58)
--- NOTE | 2019-04-12 12:58 | PN ---
Progress Note, Physician History of Present Illness: patient stable more comprehensive - Current Medication List Current Medications: Active Medications Acetaminophen (Ofirmev Injection -) 1,000 mg IVPB Q6H PRN PRN Reason: FEVER Albuterol/Ipratropium (Duoneb -) 1 amp NEB Q6H PRN PRN Reason: SHORTNESS OF BREATH Amino Acids (Prosource No Carb Liquid Pkt) 30 ml PO DAILY@0800 [facility] Last Admin: 04/12/19 09:35 Dose: 30 ml Aspirin (Ecotrin -) 81 mg PO DAILY [facility] Last Admin: 04/12/19 09:35 Dose: 81 mg Atorvastatin Calcium (Lipitor -) 40 mg PO HS [facility] Last Admin: 04/11/19 21:04 Dose: 40 mg Chlorhexidine Gluconate (Hibiclens For Decolonization -) 1 applic TP [facility] Last Admin: 04/11/19 21:23 Dose: 1 applic Chlorhexidine Gluconate (Peridex -) 15 ml MM BID [facility] Last Admin: 04/12/19 09:53 Dose: 15 ml Dextrose (Glucose Tablet -) 4 gm PO PRN PRN PRN Reason: HYPOGLYCEMIA Enoxaparin Sodium (Lovenox -) 60 mg SQ BID [facility] Last Admin: 04/12/19 09:35 Dose: 60 mg Dextrose/Lactated Ringer's (D5-Lr -) 1,000 mls @ 75 mls/hr IV ASDIR [facility] Last Admin: 04/12/19 06:34 Dose: Not Given Meropenem 1 gm/ Dextrose 100 mls @ 200 mls/hr IVPB Q8H-IV [facility] Last Admin: 04/12/19 11:47 Dose: 200 mls/hr Insulin Aspart (Novolog Vial Sliding Scale -) 1 vial SQ Q6HPO [facility]; Protocol Last Admin: 04/12/19 12:31 Dose: 4 units Insulin Detemir (Levemir Vial) 6 units SQ ACBK [facility] Last Admin: 04/12/19 06:34 Dose: 6 units Morphine Sulfate (Morphine Sulfate) 2 mg IVPUSH Q4H PRN PRN Reason: PAIN LEVEL 7 - 10 Mupirocin (Bactroban Ointment (For Decolonization) -) 1 applic NS BID [facility] Stop: 04/13/19 21:59 Last Admin: 04/12/19 09:53 Dose: 1 applic Nystatin (Mycostatin Ointment -) 1 applic TP BID [facility] Last Admin: 04/11/19 21:24 Dose: 1 applic Ondansetron HCl (Zofran Injection) 4 mg IVPUSH Q6H PRN PRN Reason: NAUSEA AND/OR VOMITING Pantoprazole Sodium (Protonix Iv) 40 mg IVPUSH BID [facility] Last Admin: 04/12/19 09:37 Dose: 40 mg - Objective Vital Signs: Vital Signs Temperature 98.2 F 04/12/19 10:00 Pulse Rate 100 H 04/12/19 12:00 Respiratory Rate 25 H 04/12/19 12:10 Blood Pressure 124/77 04/12/19 12:00 O2 Sat by Pulse Oximetry (%) 100 04/12/19 08:55 Constitutional: Yes: No Distress, Calm Cardiovascular: Yes: S1, S2 Respiratory: Yes: Mechanically Ventilated, Other (trach,on) Gastrointestinal: Yes: Normal Bowel Sounds, Soft, Other (ng tube in place) Musculoskeletal: Yes: WNL Extremities: Yes: Other Neurological: Yes: Alert, Other Psychiatric: Yes: Other Labs: CBC, BMP 04/12/19 06:00 04/12/19 06:00 INR, PTT INR 0.95 (0.83-1.09) 03/26/19 06:00 Fibrinogen 359.0 mg/dL (238-498) 03/19/19 23:15 Assessment/Plan blem List - Problems (1) Diabetes Code(s): E11.9 - TYPE 2 DIABETES MELLITUS WITHOUT COMPLICATIONS (2) HLD (hyperlipidemia) Code(s): E78.5 - HYPERLIPIDEMIA, UNSPECIFIED (3) HTN (hypertension) Code(s): I10 - ESSENTIAL (PRIMARY) HYPERTENSION (4) Crohn's disease Code(s): K50.90 - CROHN'S DISEASE, UNSPECIFIED, WITHOUT COMPLICATIONS Qualifiers: Gastrointestinal tract location: small intestine Digestive disease complication type: with rectal bleeding Qualified Code(s): K50.011 - Crohn's disease of small intestine with rectal bleeding (5) Cerebrovascular accident (CVA) Code(s): I63.9 - CEREBRAL INFARCTION, UNSPECIFIED Qualifiers: CVA mechanism: unspecified Qualified Code(s): I63.9 - Cerebral infarction, unspecified (6) Diabetes mellitus, insulin dependent (IDDM), uncontrolled Code(s): E10.65 - TYPE 1 DIABETES MELLITUS WITH HYPERGLYCEMIA Assessment/Plan 48 y.o. female with PMH of uncontrolled IDDM and DKA, Crohn's disease on prednisone, CVA, PE, HTN, HLD presenting with abdominal pain Acute Respiratory failure on MV/sedation s/p cardiopulmonary arrest Sepsis Fever SB perforation s/p Ex-lap/RAYSHAWN/partial SB and omental resection with anastomosis/ washout Peritonitis : klebsiella/Enterococcus isolated C diff colitis Crohn's disease IDDM Hx of multiple DKA Hx of CVA Hx of PE HTN HLD plan continue vent support nutrition stop meropenam and monitor nutrition diuresis as needed cc 40 min
--- NOTE | 2019-04-12 13:17 | PN ---
Teaching Attending Note Name of Resident: Baljeet Parr ATTENDING PHYSICIAN STATEMENT I saw and evaluated the patient. I reviewed the resident's note and discussed the case with the resident. I agree with the resident's findings and plan as documented. SUBJECTIVE: Pt seen and examined in the ICU. Vented, awake, tracks but not following commands. OBJECTIVE: Vital Signs Period Temp Pulse Resp BP Sys/Rapp Pulse Ox Last 24 Hr 96 F-99.1 F 81-100 20-31 109-139/62-93 99-100 Intake & Output 04/09/19 04/10/19 04/11/19 04/12/19 23:59 23:59 23:59 23:59 Intake Total 2650 2200 3865 2310 Output Total 1895 1700 1300 700 Balance 125 188 9483 1610 Weight 56.336 kg 57.635 kg 59.33 kg 55.474 kg Gen: vented, awake Heart: RRR Lung: decreased breath sounds at the bases Abd: soft, nontender Ext: + edema CBC, BMP 04/12/19 06:00 04/12/19 06:00 Active Medications Acetaminophen (Ofirmev Injection -) 1,000 mg IVPB Q6H PRN PRN Reason: FEVER Albuterol/Ipratropium (Duoneb -) 1 amp NEB Q6H PRN PRN Reason: SHORTNESS OF BREATH Amino Acids (Prosource No Carb Liquid Pkt) 30 ml PO DAILY@0800 [facility] Last Admin: 04/12/19 09:35 Dose: 30 ml Aspirin (Ecotrin -) 81 mg PO DAILY [facility] Last Admin: 04/12/19 09:35 Dose: 81 mg Atorvastatin Calcium (Lipitor -) 40 mg PO HS [facility] Last Admin: 04/11/19 21:04 Dose: 40 mg Chlorhexidine Gluconate (Hibiclens For Decolonization -) 1 applic TP HS [facility] Last Admin: 04/11/19 21:23 Dose: 1 applic Chlorhexidine Gluconate (Peridex -) 15 ml MM BID [facility] Last Admin: 04/12/19 09:53 Dose: 15 ml Dextrose (Glucose Tablet -) 4 gm PO PRN PRN PRN Reason: HYPOGLYCEMIA Enoxaparin Sodium (Lovenox -) 60 mg SQ BID [facility] Last Admin: 04/12/19 09:35 Dose: 60 mg Dextrose/Lactated Ringer's (D5-Lr -) 1,000 mls @ 75 mls/hr IV ASDIR [facility] Last Admin: 04/12/19 06:34 Dose: Not Given Meropenem 1 gm/ Dextrose 100 mls @ 200 mls/hr IVPB Q8H-IV [facility] Last Admin: 04/12/19 11:47 Dose: 200 mls/hr Insulin Aspart (Novolog Vial Sliding Scale -) 1 vial SQ Q6HPO [facility]; Protocol Last Admin: 04/12/19 12:31 Dose: 4 units Insulin Detemir (Levemir Vial) 6 units SQ ACBK [facility] Last Admin: 04/12/19 06:34 Dose: 6 units Morphine Sulfate (Morphine Sulfate) 2 mg IVPUSH Q4H PRN PRN Reason: PAIN LEVEL 7 - 10 Mupirocin (Bactroban Ointment (For Decolonization) -) 1 applic NS BID [facility] Stop: 04/13/19 21:59 Last Admin: 04/12/19 09:53 Dose: 1 applic Nystatin (Mycostatin Ointment -) 1 applic TP BID [facility] Last Admin: 04/12/19 12:58 Dose: 1 applic Ondansetron HCl (Zofran Injection) 4 mg IVPUSH Q6H PRN PRN Reason: NAUSEA AND/OR VOMITING Pantoprazole Sodium (Protonix Iv) 40 mg IVPUSH BID [facility] Last Admin: 04/12/19 09:37 Dose: 40 mg ASSESSMENT AND PLAN: s/p Cardiopulmonary Arrest Suspect Anoxic Brain Injury Acute Hypoxic Respiratory Failure s/p Tracheostomy Perforated Small Bowel s/p ex-lap/RAYSHAWN/segmental SB resection Crohn's Disease Peritonitis +C diff Colitis Septic Shock resolved Lactic Acidosis resolved Volume Overload h/o PE HTN DM Hyperlipidemia Anemia Thrombocytopenia h/o CVA - antibiotics per ID - lasix as needed - monitor urine output, creatinine - replete lytes - off pressors, maintain MAP > 65 - continue anticoagulation - minimize sedation to assess mental status - enteral feeds, will need PEG placement - DVT/GI prophylaxis
--- NOTE | 2019-04-12 14:30 | DS ---
Physical Exam: SUBJECTIVE: Patient seen and examined OBJECTIVE: Vital Signs Period Temp Pulse Resp BP Sys/Rapp Pulse Ox Last 24 Hr 96 F-99.1 F 81-100 20-31 109-139/62-93 99-100 PHYSICAL EXAM GENERAL: anasarca, trach HEAD: Normal with no signs of trauma. left pupil dilated, right pupil brisk more reactive. ENT: Ears normal, nares patent, oropharynx clear without exudates, moist mucous membranes. NECK: Trachea midline, full range of motion, supple. LUNGS: diminished anteriorly HEART: tachycardia 110s ABDOMEN: wound vac EXTREMITIES: anasacra NEUROLOGICAL: eyes open, non responsive, tracking, but confused 04/09/19. head ct recent acute/subacute infarct - alfa sub. cortex. non hemorrhagic -------- Patient is a 48 year old female admitted for septic shock 08/01 to bowel perforation. she is s/p exp lap with resection of ilial perforation on 03/12. In the past she has had multiple admission for DKA. This hospitalization complicated with multiple episodes of respiratory failure, bacteremia, c-diff, DKA. She also had an episode of pulseless activity on 03/19/19 and was intubated after CPR performed. On 04/08, patient was a rapid response and transferred back to the icu after becoming diaphorectic, tachycardic and tachypnic on trach collar. She is now found to have a new acute/subacute infarct on CT imaging. LABS Laboratory Results - last 24 hr 04/11/19 04/11/19 04/12/19 17:39 20:49 00:19 WBC RBC Hgb Hct MCV MCH MCHC RDW Plt Count MPV Absolute Neuts (auto) Neutrophils % Lymphocytes % Monocytes % Eosinophils % Basophils % Nucleated RBC % Sodium Potassium Chloride Carbon Dioxide Anion Gap BUN Creatinine Est GFR (CKD-EPI)AfAm Est GFR (CKD-EPI)NonAf POC Glucometer 184 75 308 Random Glucose Calcium Phosphorus Magnesium Total Bilirubin AST ALT Alkaline Phosphatase Total Protein Albumin 04/12/19 04/12/19 04/12/19 05:52 06:00 06:00 WBC 10.0 RBC 3.03 L Hgb 8.6 L Hct 26.6 L MCV 87.6 MCH 28.5 MCHC 32.5 RDW 23.4 H Plt Count 622 H MPV 7.8 Absolute Neuts (auto) 7.4 Neutrophils % 73.5 Lymphocytes % 18.0 Monocytes % 6.7 Eosinophils % 1.0 Basophils % 0.8 Nucleated RBC % 0 Sodium 138 Potassium 3.4 L Chloride 103 Carbon Dioxide 28 Anion Gap 8 BUN 13.6 Creatinine 0.3 L Est GFR (CKD-EPI)AfAm 155.82 Est GFR (CKD-EPI)NonAf 134.44 POC Glucometer 368 Random Glucose 379 H Calcium 7.7 L Phosphorus 2.3 L Magnesium 1.8 Total Bilirubin 0.3 AST 21 ALT 14 Alkaline Phosphatase 188 H Total Protein 5.4 L Albumin 1.8 L 04/12/19 12:24 WBC RBC Hgb Hct MCV MCH MCHC RDW Plt Count MPV Absolute Neuts (auto) Neutrophils % Lymphocytes % Monocytes % Eosinophils % Basophils % Nucleated RBC % Sodium Potassium Chloride Carbon Dioxide Anion Gap BUN Creatinine Est GFR (CKD-EPI)AfAm Est GFR (CKD-EPI)NonAf POC Glucometer 255 Random Glucose Calcium Phosphorus Magnesium Total Bilirubin AST ALT Alkaline Phosphatase Total Protein Albumin HOSPITAL COURSE: Date of Admission:03/09/19 Date of Discharge: 04/12/19 Problem List - Problems (1) Cerebrovascular accident (CVA) Assessment/Plan: 04/09/19. head ct recent acute/subacute infarct - alfa sub. cortex. non hemorrhagic discussed with neuro start: asa 81mg dialy via g tube, lipitor 40 via g tube, lipid panel hold swallow eval and PT as patient is unable to participate in both currently per stroke protocol lipid panel pending will order carotid dopplers to be done at bedside, if able to be done at bedside. Code(s): I63.9 - CEREBRAL INFARCTION, UNSPECIFIED Qualifiers: CVA mechanism: unspecified Qualified Code(s): I63.9 - Cerebral infarction, unspecified (2) DKA (diabetic ketoacidoses) Assessment/Plan: Multiple episodes of DKA in past and during hospital stay. insulin drip d/cd, now on long short acting insulin q6, on d5/lr @ 75cc/hr with close monitoring of BGMs. close monitoring of BS reuired on discharge Code(s): E13.10 - OTH DIABETES MELLITUS WITH KETOACIDOSIS WITHOUT COMA Qualifiers: Diabetes mellitus type: type 1 Diabetes mellitus complication detail: without coma Qualified Code(s): E10.10 - Type 1 diabetes mellitus with ketoacidosis without coma (3) Acute respiratory failure Assessment/Plan: patient is s /p trachestomy. weaning attempts to trach collar supplemental O2 required on discharge Code(s): J96.00 - ACUTE RESPIRATORY FAILURE, UNSP W HYPOXIA OR HYPERCAPNIA Qualifiers: Respiratory failure complication: unspecified whether with hypoxia or hypercapnia Qualified Code(s): J96.00 - Acute respiratory failure, unspecified whether with hypoxia or hypercapnia (4) Perforated abdominal viscus Assessment/Plan: s/p Ex-lap/RAYSHAWN/partial SB and omental resection with anastomosis/washout on 03/12 wound dihisecence noted at distal portion, vac in place dressing changes as per surgery on meropenem per ID Code(s): [id number] - (5) Abdominal pain Assessment/Plan: Patient is/p ex-lap/RAYSHAWN/partial SB and omental resection with anastomosis/ washout appreciate surgical and ID consultation Code(s): R10.9 - UNSPECIFIED ABDOMINAL PAIN Qualifiers: Abdominal location: generalized Qualified Code(s): R10.84 - Generalized abdominal pain (6) C. difficile diarrhea Assessment/Plan: continue PO vanco until 1 week after antibiotics have been completed. Given that this is a recurrent C. Diff, would likely need tapering to completion once antibiotics have stopped Vanco: 125mg Q6H for 1 week 125mg Q8H for 1 week 125mg BID for 1 week 125mg daily for 1 week 125mg every other day for 1 week then stop Code(s): A04.72 - ENTEROCOLITIS D/T CLOSTRIDIUM DIFFICILE, NOT SPCF RECUR (7) Diabetes Assessment/Plan: brittle diabetic, blood sugars fluctuate. endocrinology following. Code(s): E11.9 - TYPE 2 DIABETES MELLITUS WITHOUT COMPLICATIONS (8) ESBL (extended spectrum beta-lactamase) producing bacteria infection Assessment/Plan: esbl in wound culture. maintain contact precautions. Code(s): A49.9 - BACTERIAL INFECTION, UNSPECIFIED; Z16.12 - EXTENDED SPECTRUM BETA LACTAMASE (ESBL) RESISTANCE (9) HTN (hypertension) Assessment/Plan: ICU monitoring with frequent checks Code(s): I10 - ESSENTIAL (PRIMARY) HYPERTENSION (10) Left-sided weakness Assessment/Plan: chronic left sided weakness. now with edema of both arms and anasarca Code(s): R53.1 - WEAKNESS (11) Acute Crohn's disease Assessment/Plan: lysis of adhesions, segmental resection of small intestinal perforation with side-side stapled anastomosis, abdominal washout, resection of portion of omentum. GI following. Code(s): K50.90 - CROHN'S DISEASE, UNSPECIFIED, WITHOUT COMPLICATIONS (12) Anemia Assessment/Plan: monitor cbc daily Code(s): D64.9 - ANEMIA, UNSPECIFIED (13) Respiratory failure Code(s): J96.90 - RESPIRATORY FAILURE, UNSP, UNSP W HYPOXIA OR HYPERCAPNIA (14) Prophylactic measure Assessment/Plan: NPO monitor electrolytes, ngt feeds DVT on lovenox full dose Dispo transfer care to [facility] Code(s): Z29.9 - ENCOUNTER FOR PROPHYLACTIC MEASURES, UNSPECIFIED Visit type - Emergency Visit Emergency Visit: Yes ED Registration Date: 03/09/19 Care time: The patient presented to the Emergency Department on the above date and was hospitalized for further evaluation of their emergent condition. - New Patient This patient is new to me today: No - Critical Care Critical Care patient: Yes Total Critical Care Time (in minutes): 45 Critical Care Statement: The care of this patient involved high complexity decision making to prevent further life threatening deterioration of the patient 's condition and/or to evaluate & treat vital organ system(s) failure or risk of failure. Minutes to complete discharge: 60 Discharge Summary Problems reviewed: Yes Reason For Visit: ABD PAIN, SMALL BOWEL OBSTRUCTION Current Active Problems Abdominal pain (Acute) Acute Crohn's disease (Acute) Admitted to intensive care unit (Acute) Anemia (Acute) Anoxic brain injury (Acute) C. difficile diarrhea (Acute) Clostridium difficile diarrhea (Acute) Coffee ground emesis (Acute) Diabetes (Acute) ESBL (extended spectrum beta-lactamase) producing bacteria infection (Acute) Encounter for feeding tube placement (Acute) Gastroparesis (Acute) HLD (hyperlipidemia) (Acute) HTN (hypertension) (Acute) History of open heart surgery (Acute) Hypotension (Acute) Hypoxia (Acute) Left-sided weakness (Acute) Leukopenia (Acute) Open wound anterior abdominal wall (Acute) Perforated abdominal viscus (Acute) Performance measure status (Acute) Post-op pain (Acute) Postoperative dehiscence of internal wound (Acute) Prophylactic measure (Acute) Respiratory failure (Acute) Severe malnutrition (Acute) Small bowel obstruction (Acute) Small bowel perforation (Acute) Tracheostomy in place (Acute) Hospital Course: Prolonged hospital course requiring ICU care. GENERAL: anasarca, trach HEAD: Normal with no signs of trauma. left pupil dilated, right pupil brisk more reactive. ENT: Ears normal, nares patent, oropharynx clear without exudates, moist mucous membranes. NECK: Trachea midline, full range of motion, supple. LUNGS: diminished anteriorly HEART: tachycardia 110s ABDOMEN: wound vac EXTREMITIES: anasacra NEUROLOGICAL: eyes open, non responsive, tracking, but confused 04/09/19. head ct recent acute/subacute infarct - alfa sub. cortex. non hemorrhagic -------- Patient is a 48 year old female admitted for septic shock 08/01 to bowel perforation. she is s/p exp lap with resection of ilial perforation on 03/12. In the past she has had multiple admission for DKA. This hospitalization complicated with multiple episodes of respiratory failure, bacteremia, c-diff, DKA. She also had an episode of pulseless activity on 03/19/19 and was intubated after CPR performed. On 04/08, patient was a rapid response and transferred back to the icu after becoming diaphorectic, tachycardic and tachypnic on trach collar. She is now found to have a new acute/subacute infarct on CT imaging. Problem List - Problems (1) Cerebrovascular accident (CVA) Assessment/Plan: 04/09/19. head ct recent acute/subacute infarct - alfa sub. cortex. non hemorrhagic discussed with neuro start: asa 81mg dialy via g tube, lipitor 40 via g tube, lipid panel hold swallow eval and PT as patient is unable to participate in both currently per stroke protocol lipid panel pending will order carotid dopplers to be done at bedside, if able to be done at bedside. Code(s): I63.9 - CEREBRAL INFARCTION, UNSPECIFIED Qualifiers: CVA mechanism: unspecified Qualified Code(s): I63.9 - Cerebral infarction, unspecified (2) DKA (diabetic ketoacidoses) Assessment/Plan: Multiple episodes of DKA in past and during hospital stay. insulin drip d/cd, now on long short acting insulin q6, on d5/lr @ 75cc/hr with close monitoring of BGMs. close monitoring of BS reuired on discharge Code(s): E13.10 - OTH DIABETES MELLITUS WITH KETOACIDOSIS WITHOUT COMA Qualifiers: Diabetes mellitus type: type 1 Diabetes mellitus complication detail: without coma Qualified Code(s): E10.10 - Type 1 diabetes mellitus with ketoacidosis without coma (3) Acute respiratory failure Assessment/Plan: patient is s /p trachestomy. weaning attempts to trach collar supplemental O2 required on discharge Code(s): J96.00 - ACUTE RESPIRATORY FAILURE, UNSP W HYPOXIA OR HYPERCAPNIA Qualifiers: Respiratory failure complication: unspecified whether with hypoxia or hypercapnia Qualified Code(s): J96.00 - Acute respiratory failure, unspecified whether with hypoxia or hypercapnia (4) Perforated abdominal viscus Assessment/Plan: s/p Ex-lap/RAYSHAWN/partial SB and omental resection with anastomosis/washout on 03/12 wound dihisecence noted at distal portion, vac in place dressing changes as per surgery on meropenem per ID Code(s): [id number] - (5) Abdominal pain Assessment/Plan: Patient is/p ex-lap/ARYSHAWN/partial SB and omental resection with anastomosis/ washout appreciate surgical and ID consultation Code(s): R10.9 - UNSPECIFIED ABDOMINAL PAIN Qualifiers: Abdominal location: generalized Qualified Code(s): R10.84 - Generalized abdominal pain (6) C. difficile diarrhea Assessment/Plan: continue PO vanco until 1 week after antibiotics have been completed. Given that this is a recurrent C. Diff, would likely need tapering to completion once antibiotics have stopped Vanco: 125mg Q6H for 1 week 125mg Q8H for 1 week 125mg BID for 1 week 125mg daily for 1 week 125mg every other day for 1 week then stop Code(s): A04.72 - ENTEROCOLITIS D/T CLOSTRIDIUM DIFFICILE, NOT SPCF RECUR (7) Diabetes Assessment/Plan: brittle diabetic, blood sugars fluctuate. endocrinology following. Code(s): E11.9 - TYPE 2 DIABETES MELLITUS WITHOUT COMPLICATIONS (8) ESBL (extended spectrum beta-lactamase) producing bacteria infection Assessment/Plan: esbl in wound culture. maintain contact precautions. Code(s): A49.9 - BACTERIAL INFECTION, UNSPECIFIED; Z16.12 - EXTENDED SPECTRUM BETA LACTAMASE (ESBL) RESISTANCE (9) HTN (hypertension) Assessment/Plan: ICU monitoring with frequent checks Code(s): I10 - ESSENTIAL (PRIMARY) HYPERTENSION (10) Left-sided weakness Assessment/Plan: chronic left sided weakness. now with edema of both arms and anasarca Code(s): R53.1 - WEAKNESS (11) Acute Crohn's disease Assessment/Plan: lysis of adhesions, segmental resection of small intestinal perforation with side-side stapled anastomosis, abdominal washout, resection of portion of omentum. GI following. Code(s): K50.90 - CROHN'S DISEASE, UNSPECIFIED, WITHOUT COMPLICATIONS (12) Anemia Assessment/Plan: monitor cbc daily Code(s): D64.9 - ANEMIA, UNSPECIFIED (13) Respiratory failure Code(s): J96.90 - RESPIRATORY FAILURE, UNSP, UNSP W HYPOXIA OR HYPERCAPNIA (14) Prophylactic measure Assessment/Plan: NPO monitor electrolytes, ngt feeds DVT on lovenox full dose Dispo transfer care to [facility] Code(s): Z29.9 - ENCOUNTER FOR PROPHYLACTIC MEASURES, UNSPECIFIED Visit type - Emergency Visit Emergency Visit: Yes ED Registration Date: 03/09/19 Care time: The patient presented to the Emergency Department on the above date and was hospitalized for further evaluation of their emergent condition. - New Patient This patient is new to me today: No - Critical Care Critical Care patient: Yes Total Critical Care Time (in minutes): 45 Critical Care Statement: The care of this patient involved high complexity decision making to prevent further life threatening deterioration of the patient 's condition and/or to evaluate & treat vital organ system(s) failure or risk of failure. Condition: Poor - Instructions Diet, Activity, Other Instructions: NPO, Tube Feeds Disposition: GROUP HOME FACILITY - Home Medications Comprehensive Discharge Medication List: Ambulatory Orders Aspirin 81 mg PO DAILY #30 tab.chew 08/13/18 Acetaminophen Injection [Ofirmev Injection -] 1,000 mg IVPB Q6H PRN vial Acetaminophen Injection [Ofirmev Injection -] 1,000 mg IVPB Q6H PRN vial Albuterol 2.5/Ipratropium 0.5 [Duoneb -] 1 amp NEB Q6H PRN amp 04/12/19 Albuterol 2.5/Ipratropium 0.5 [Duoneb -] 1 amp NEB Q6H PRN amp 04/12/19 Amino Acids/Protein Hydrolys [Prosource No Carb Liquid Pkt] 30 ml PO DAILY@0800 packet 04/12/19 Aspirin Coated [Ecotrin -] 81 mg PO DAILY tablet.ec 04/12/19 Aspirin Coated [Ecotrin -] 81 mg PO DAILY tablet.ec 04/12/19 Atorvastatin Ca [Lipitor] 40 mg PO HS tablet 04/12/19 Atorvastatin Ca [Lipitor] 40 mg PO HS tablet 04/12/19 Enoxaparin [Lovenox -] 70 mg SQ BID disp.syrin 04/12/19 Insulin (Levemir) [Levemir Vial] 6 units SQ ACBK units 04/12/19 Insulin (Levemir) [Levemir Vial] 6 units SQ ACBK units 04/12/19 Insulin Sliding Scale [Novolog Vial Sliding Scale -] 1 vial SQ Q6HPO units Insulin Sliding Scale [Novolog Vial Sliding Scale -] 1 vial SQ Q6HPO units Meropenem [Merrem (Restricted To Id) -] 1 gm IVPB Q8H-IV vial 04/12/19 Mupirocin Ointment [Bactroban Ointment (For Decolonization) -] 1 applic NS BID applic 04/12/19 Mupirocin Ointment [Bactroban Ointment (For Decolonization) -] 1 applic NS BID applic 04/12/19 Ondansetron Injection [Zofran Injection] 4 mg IVPUSH Q6H PRN vial 04/12/19 Pantoprazole Sodium [Protonix IV] 40 mg IVPUSH BID vial 04/12/19 Pantoprazole Sodium [Protonix IV] 40 mg IVPUSH BID vial 04/12/19 Vancomycin Oral Solution 125 mg PO Q6HPO ml 04/12/19 Prescription Drug Monitoring Program (I-STOP) results: I-STOP reviewed and no issues identified Problem List - Problems (1) HLD (hyperlipidemia) Code(s): E78.5 - HYPERLIPIDEMIA, UNSPECIFIED (2) Left-sided weakness Code(s): R53.1 - WEAKNESS (3) History of open heart surgery Code(s): Z98.890 - OTHER SPECIFIED POSTPROCEDURAL STATES (4) Acute Crohn's disease Code(s): K50.90 - CROHN'S DISEASE, UNSPECIFIED, WITHOUT COMPLICATIONS (5) Gastroparesis Code(s): K31.84 - GASTROPARESIS (6) Abdominal pain Code(s): R10.9 - UNSPECIFIED ABDOMINAL PAIN Qualifiers: Abdominal location: generalized Qualified Code(s): R10.84 - Generalized abdominal pain (7) Small bowel obstruction Code(s): K56.609 - UNSP INTESTNL OBST, UNSP TO PARTIAL VERSUS COMPLETE OBST (8) Cerebrovascular accident (CVA) Code(s): I63.9 - CEREBRAL INFARCTION, UNSPECIFIED Qualifiers: CVA mechanism: unspecified Qualified Code(s): I63.9 - Cerebral infarction, unspecified (9) Chronic pain Code(s): G89.29 - OTHER CHRONIC PAIN Qualifiers: Chronic pain type: chronic pain syndrome Qualified Code(s): G89.4 - Chronic pain syndrome (10) Prophylactic measure Code(s): Z29.9 - ENCOUNTER FOR PROPHYLACTIC MEASURES, UNSPECIFIED (11) Diabetes Code(s): E11.9 - TYPE 2 DIABETES MELLITUS WITHOUT COMPLICATIONS (12) Perforated abdominal viscus Code(s): [id number] - (13) Hypoxia Code(s): R09.02 - HYPOXEMIA (14) C. difficile diarrhea Code(s): A04.72 - ENTEROCOLITIS D/T CLOSTRIDIUM DIFFICILE, NOT SPCF RECUR (15) ESBL (extended spectrum beta-lactamase) producing bacteria infection Code(s): A49.9 - BACTERIAL INFECTION, UNSPECIFIED; Z16.12 - EXTENDED SPECTRUM BETA LACTAMASE (ESBL) RESISTANCE (16) Clostridium difficile diarrhea Code(s): A04.72 - ENTEROCOLITIS D/T CLOSTRIDIUM DIFFICILE, NOT SPCF RECUR (17) Admitted to intensive care unit Code(s): Z78.9 - OTHER SPECIFIED HEALTH STATUS This patient is new to me today: No Emergency Visit: Yes ED Registration Date: 03/09/19 Care time: The patient presented to the Emergency Department on the above date and was hospitalized for further evaluation of their emergent condition. Critical Care patient: Yes Total Critical Care Time (in minutes): 60 Critical Care Statement: The care of this patient involved high complexity decision making to prevent further life threatening deterioration of the patient 's condition and/or to evaluate & treat vital organ system(s) failure or risk of failure. - Discharge Referral Referred to [facility] No
--- NOTE | 2019-04-12 14:45 | PN ---
Physical Exam: SUBJECTIVE: Patient seen and examined at bedside in the ICU. Patient is awake and tracking the room but not able to follow instructions. Remains on vent. OBJECTIVE: Vital Signs Period Temp Pulse Resp BP Sys/Rapp Pulse Ox Last 24 Hr 96 F-99.1 F 81-100 20-31 109-139/62-93 99-100 GENERAL: The patient is awake, tracking room, unable to follow instructions, in no acute distress. HEAD: Normal with no signs of trauma. EYES: PERRL, sclera anicteric, conjunctiva clear. No ptosis. ENT: Ears normal, nares patent, oropharynx clear without exudates, moist mucous membranes. NECK: Trach in place, full range of motion, supple. LUNGS: On vent. HEART: Regular rate and rhythm, S1, S2 without murmur, rub or gallop. ABDOMEN: Soft, nontender, nondistended. Wound vac in place. EXTREMITIES: 2+ pulses, warm, well-perfused. 2+ pitting edema in upper/lower extremities. NEUROLOGICAL: Unable to assess. PSYCH: Unable to assess. SKIN: Warm, dry, normal turgor, no rashes or lesions noted Laboratory Results - last 24 hr 04/11/19 04/11/19 04/12/19 17:39 20:49 00:19 WBC RBC Hgb Hct MCV MCH MCHC RDW Plt Count MPV Absolute Neuts (auto) Neutrophils % Lymphocytes % Monocytes % Eosinophils % Basophils % Nucleated RBC % Sodium Potassium Chloride Carbon Dioxide Anion Gap BUN Creatinine Est GFR (CKD-EPI)AfAm Est GFR (CKD-EPI)NonAf POC Glucometer 184 75 308 Random Glucose Calcium Phosphorus Magnesium Total Bilirubin AST ALT Alkaline Phosphatase Total Protein Albumin 04/12/19 04/12/19 04/12/19 05:52 06:00 06:00 WBC 10.0 RBC 3.03 L Hgb 8.6 L Hct 26.6 L MCV 87.6 MCH 28.5 MCHC 32.5 RDW 23.4 H Plt Count 622 H MPV 7.8 Absolute Neuts (auto) 7.4 Neutrophils % 73.5 Lymphocytes % 18.0 Monocytes % 6.7 Eosinophils % 1.0 Basophils % 0.8 Nucleated RBC % 0 Sodium 138 Potassium 3.4 L Chloride 103 Carbon Dioxide 28 Anion Gap 8 BUN 13.6 Creatinine 0.3 L Est GFR (CKD-EPI)AfAm 155.82 Est GFR (CKD-EPI)NonAf 134.44 POC Glucometer 368 Random Glucose 379 H Calcium 7.7 L Phosphorus 2.3 L Magnesium 1.8 Total Bilirubin 0.3 AST 21 ALT 14 Alkaline Phosphatase 188 H Total Protein 5.4 L Albumin 1.8 L 04/12/19 12:24 WBC RBC Hgb Hct MCV MCH MCHC RDW Plt Count MPV Absolute Neuts (auto) Neutrophils % Lymphocytes % Monocytes % Eosinophils % Basophils % Nucleated RBC % Sodium Potassium Chloride Carbon Dioxide Anion Gap BUN Creatinine Est GFR (CKD-EPI)AfAm Est GFR (CKD-EPI)NonAf POC Glucometer 255 Random Glucose Calcium Phosphorus Magnesium Total Bilirubin AST ALT Alkaline Phosphatase Total Protein Albumin Active Medications Generic Name Dose Route Start Last Admin Trade Name Freq PRN Reason Stop Dose Admin Acetaminophen 1,000 mg 04/11/19 16:46 Ofirmev Injection - IVPB Q6H PRN FEVER Albuterol/Ipratropium 1 amp 04/11/19 16:46 Duoneb - NEB Q6H PRN SHORTNESS OF BREATH Amino Acids 30 ml 04/12/19 08:00 04/12/19 09:35 Prosource No Carb Liquid Pkt PO 30 ml DAILY@0800 [facility] Administration Aspirin 81 mg 04/12/19 10:00 04/12/19 09:35 Ecotrin - PO 81 mg DAILY [facility] Administration Atorvastatin Calcium 40 mg 04/11/19 22:00 04/11/19 21:04 Lipitor - PO 40 mg HS [facility] Administration Chlorhexidine Gluconate 1 applic 04/11/19 22:00 04/11/19 21:23 Hibiclens For Decolonization - TP 1 applic HS [facility] Administration Chlorhexidine Gluconate 15 ml 04/11/19 22:00 04/12/19 09:53 Peridex - MM 15 ml BID [facility] Administration Dextrose 4 gm 04/11/19 16:46 Glucose Tablet - PO PRN PRN HYPOGLYCEMIA Enoxaparin Sodium 60 mg 04/11/19 22:00 04/12/19 09:35 Lovenox - SQ 60 mg BID [facility] Administration Insulin Aspart 1 vial 04/11/19 18:00 04/12/19 12:31 Novolog Vial Sliding Scale - SQ 4 units Q6HPO [facility] Administration Protocol Insulin Detemir 6 units 04/12/19 07:00 04/12/19 06:34 Levemir Vial SQ 6 units ACBK [facility] Administration Morphine Sulfate 2 mg 04/11/19 16:46 Morphine Sulfate IVPUSH Q4H PRN PAIN LEVEL 7 - 10 Mupirocin 1 applic 04/11/19 22:00 04/12/19 09:53 Bactroban Ointment (For Decolonization) - NS 04/13/19 21:59 1 applic BID [facility] Administration Nystatin 1 applic 04/11/19 22:00 04/12/19 12:58 Mycostatin Ointment - TP 1 applic BID [facility] Administration Ondansetron HCl 4 mg 04/11/19 16:46 Zofran Injection IVPUSH Q6H PRN NAUSEA AND/OR VOMITING Pantoprazole Sodium 40 mg 04/11/19 22:00 04/12/19 09:37 Protonix Iv IVPUSH 40 mg BID [facility] Administration ASSESSMENT/PLAN: Pt is a 48F PMH Type I IDDM, PE (on Lovenox), frequent admissions for DKA, HTN, HLD, C-Diff, CVA with left-sided weakness, recent hospitalization at [facility] September 2018, sepsis 2/2 bowel perforation s/p laparotomy who was recently in [facility] ICU. Pt well known to ICU team. #Neuro -neuro consult (Addis) appreciate recs -subacute CVA seen on head CT -antiplatelets -neurosurgery (Dr. Guajardo) no surgical intervention at this time -minimize sedation where possible to assess mental status #Cardio: hx of transient a-fib with RVR -surveillance monitor -Maintain MAP > 65. currently not on pressors -lasix PRN #Respiratory: Acute respiratory failure -s/p trach and bronchoscopy -Duonebs -vented on AC mode #GI: s/p ex lap for SBO w/ perforation -Currently with wound vac to be changed 04/13 -Surgery on board, will need PEG #Endocrine: DKA - off insulin drip - Dr. Gama- max novolog of 8 units, even if BGM>400, rpt BGM after 2 hrs and give 2-3 units if bgm >400. - D5NS when patient needs tube feeds to be held for any reason. - Levemir 6u daily #I.D.- Possible Sepsis 2/2 Abdominal/Respiratory Source -Pt s/p bowel perforation s/p laparotomy -daily lab -d/c meropenem -ID on board -GI PO vanc taper: 125mg Q6H for 1 week 125mg Q8H for 1 week 125mg BID for 1 week 125mg daily for 1 week 125mg every other day for 1 week then stop #F/E/N -D5/LR @ 75cc/hr -Monitor electrolytes -enteral feeds -prosource feeds -strict I/O #DVTppx: -Lovenox Dispo: transfer to floor Baljeet Parr MD PGY-1, Critical Care/ICU [phone] Visit type - Emergency Visit Emergency Visit: Yes ED Registration Date: 03/09/19 Care time: The patient presented to the Emergency Department on the above date and was hospitalized for further evaluation of their emergent condition. - New Patient This patient is new to me today: No - Critical Care Critical Care patient: Yes Total Critical Care Time (in minutes): 35 Critical Care Statement: The care of this patient involved high complexity decision making to prevent further life threatening deterioration of the patient 's condition and/or to evaluate & treat vital organ system(s) failure or risk of failure. ATTENDING PHYSICIAN STATEMENT I saw and evaluated the patient. I reviewed the resident's note and discussed the case with the resident. I agree with the resident's findings and plan as documented. SUBJECTIVE: OBJECTIVE: ASSESSMENT AND PLAN:
[2019-04-12 16:20] VITALS: TEMP 98
[2019-04-12 16:21] VITALS: BP 110/79; PULSE 102
[2019-04-12] MEDS ORDERED: DEXTROSE 50%-WATER 25 GM/50 ML DISP.SYRIN ONE (16:45)
[2019-04-12] MEDS ORDERED: DEXTROSE 50%-WATER - 25 GM/50 ML VIAL IVPUSH ONE (17:29)
[2019-04-13] MEDS ORDERED: VANCOMYCIN 250 MG/5 ML ORAL SOLUTION PO SCH
[2019-04-20] MEDS ORDERED: VANCOMYCIN 250 MG/5 ML ORAL SOLUTION PO SCH
== END 2019-04-12 17:28 | DRG 3 ==
LOC: FER 16:47 → FM/S 23:12 → UNDOADMIN 03-10 00:26 → FM/S 03-10 00:26 → JICU 03-10 16:25 → J5S 04-07 19:51 → JICU 04-08 17:21
PROVIDERS: ADMIT Internal Medicine; ATTEND Nurse Practitioner Acute Care
PROC: 0DNW0ZZ Release Peritoneum, Open Approach (ICD-10-PCS; 2019-03-12)
PROC: 0DTU0ZZ Resection of Omentum, Open Approach (ICD-10-PCS; 2019-03-12)
PROC: 0DBB0ZZ Excision of Ileum, Open Approach (ICD-10-PCS; 2019-03-12)
PROC: 3E1Y38Z Irrigation of Pericardial Cavity using Irrigating Substance, Percutaneous Approach (ICD-10-PCS; 2019-03-12)
PROC: 30233K1 Transfusion of Nonautologous Frozen Plasma into Peripheral Vein, Percutaneous Approach (ICD-10-PCS; 2019-03-12)
PROC: 30233N1 Transfusion of Nonautologous Red Blood Cells into Peripheral Vein, Percutaneous Approach (ICD-10-PCS; 2019-03-12)
PROC: 5A1955Z Respiratory Ventilation, Greater than 96 Consecutive Hours (ICD-10-PCS; principal; 2019-03-19)
PROC: 5A12012 Performance of Cardiac Output, Single, Manual (ICD-10-PCS; 2019-03-19)
PROC: 05H533Z Insertion of Infusion Device into Right Subclavian Vein, Percutaneous Approach (ICD-10-PCS; 2019-03-21)
PROC: B516ZZA Fluoroscopy of Right Subclavian Vein, Guidance (ICD-10-PCS; 2019-03-21)
PROC: 05HM33Z Insertion of Infusion Device into Right Internal Jugular Vein, Percutaneous Approach (ICD-10-PCS; 2019-03-29)
PROC: B513ZZA Fluoroscopy of Right Jugular Veins, Guidance (ICD-10-PCS; 2019-03-29)
PROC: 0BH17EZ Insertion of Endotracheal Airway into Trachea, Via Natural or Artificial Opening (ICD-10-PCS; 2019-04-01)
PROC: 0B113F4 Bypass Trachea to Cutaneous with Tracheostomy Device, Percutaneous Approach (ICD-10-PCS; 2019-04-06)
PROC: 0BJ08ZZ Inspection of Tracheobronchial Tree, Via Natural or Artificial Opening Endoscopic (ICD-10-PCS; 2019-04-06)
PROC: 2W03X6Z Change Pressure Dressing on Abdominal Wall (ICD-10-PCS; 2019-04-08)
DX: A41.89 Other specified sepsis (principal); K63.1 Perforation of intestine (nontraumatic); K65.9 Peritonitis, unspecified; R65.21 Severe sepsis with septic shock; J96.01 Acute respiratory failure with hypoxia; I46.9 Cardiac arrest, cause unspecified; J18.9 Pneumonia, unspecified organism; I63.9 Cerebral infarction, unspecified; E11.10 Type 2 diabetes mellitus with ketoacidosis without coma; K56.609 Unspecified intestinal obstruction, unspecified as to partial versus complete obstruction; K50.90 Crohn's disease, unspecified, without complications; I69.354 Hemiplegia and hemiparesis following cerebral infarction affecting left non-dominant side; E87.2 Acidosis; A04.72 Enterocolitis due to Clostridium difficile, not specified as recurrent; G93.1 Anoxic brain damage, not elsewhere classified; Z16.12 Extended spectrum beta lactamase (ESBL) resistance; R64 Cachexia; T81.30XA Disruption of wound, unspecified, initial encounter; J98.11 Atelectasis; I10 Essential (primary) hypertension; E78.5 Hyperlipidemia, unspecified; E11.65 Type 2 diabetes mellitus with hyperglycemia; E87.6 Hypokalemia; D64.9 Anemia, unspecified; E11.43 Type 2 diabetes mellitus with diabetic autonomic (poly)neuropathy; K31.84 Gastroparesis; G43.909 Migraine, unspecified, not intractable, without status migrainosus; M54.5 Low back pain; E87.70 Fluid overload, unspecified; R11.2 Nausea with vomiting, unspecified; R10.84 Generalized abdominal pain; I48.91 Unspecified atrial fibrillation; R00.0 Tachycardia, unspecified; K59.09 Other constipation; D69.6 Thrombocytopenia, unspecified; B96.1 Klebsiella pneumoniae [K. pneumoniae] as the cause of diseases classified elsewhere; B95.2 Enterococcus as the cause of diseases classified elsewhere; K66.0 Peritoneal adhesions (postprocedural) (postinfection); Z86.711 Personal history of pulmonary embolism; Z68.21 Body mass index [BMI] 21.0-21.9, adult; Z78.9 Other specified health status
CPT/HCPCS: 36415; 36430; 36511; 36600; 70450-TC; 71045-TC-FY; 74018-TC-FY; 74019-TC-FY; 74176-TC; 74177-TC; 80048; 80053; 80061; 81003; 82009; 82010; 82272; 82550; 82728; 82803; 82947; 82962; 83036; 83540; 83550; 83605; 83690; 83721; 83735; 84100; 84134; 84484; 84703; 85025; 85027; 85384; 85610; 85651; 85730; 86140; 86850; 86870; 86900; 86901; 86902; 86922; 87040; 87070; 87075; 87077; 87086; 87186; 87205; 87324; 87449; 88305-TC; 88307-TC; 93005; 93010; 93306-TC; 93880-TC; 94002; 94660; 94760; 99285-25; J0131; J0878; J1644; J7030; P9017; P9038; P9058; Q0162; Q9967